=== PATIENT | male | born 1950 | race Caucasian/White ===

== ENCOUNTER 2019-08-28 12:18 | Emergency (ER) | payer MEDICARE, MEDICAID, SELFPAY ==
[2019-08-28 12:24] VITALS: BP 143/89; PULSE 66; RESP 18; TEMP 36.8; O2SAT 98
[2019-08-28 13:06] LABS: Basophils Percent Auto 0.2 % (0.2-1.2); Eosinophils Absolute Auto 0.2 K/mm3 (0-0.3); Eosinophils Percent Auto 1.9 % (0-4.4); Hematocrit 41.8 % (42.0-52.0); Hemoglobin 12.9 g/dL (14.0-18.0); Immature Granulocyte Absolute 0.03 K/mm3 (0.00-0.031); Immature Granulocyte Percent A 0.3 % (0-0.5); Lymphocytes Absolute Auto 0.89 K/mm3 (0.9-3.2); Lymphocytes Percent Auto 10.3 % (18.3-44.2); Mean Corpuscular HGB Conc 30.9 g/dl (32-36); Mean Corpuscular Hemoglobin 28.7 pg (26-34); Mean Corpuscular Volume 92.9 fl (80-100); Mean Platelet Volume 10.8 fl (7.4-10.4); Monocytes Absolute Auto 1.1 K/mm3 (0.1-0.6); Monocytes Percent Auto 12.2 % (2.6-8.5); Neutrophils Absolute Auto 6.5 K/mm3 (1.3-6.7); Neutrophils Percent Auto 75.1 % (45.5-73.1); Platelet Count Result 203 k/mm3 (150-375); White Blood Count 8.6 K/mm3 (4.5-10.0)
[2019-08-28 13:18] LABS: Lactic Acid Reflex 0.9 mmol/L (0.7-2.1)
[2019-08-28 13:19] LABS: Alanine Aminotransferase 51 U/L (4-50); Alkaline Phosphatase 101 U/L (38-126); Aspartate Amino Transferase 41 U/L (17-59); Bilirubin,Total 0.6 mg/dL (0.2-1.3); Blood Urea Nitrogen 19 mg/dL (9-20); Calcium 8.7 mg/dL (8.4-10.2); Carbon Dioxide 31 mmol/L (22-30); Chloride 100 mmol/L (98-107); Estimated CRCL calculation 80 ml/min; Estimated Glomerular Filt Rate > 60; Glucose 113 mg/dL (75-110); Potassium 3.5 mmol/L (3.4-5.0); Sodium 143 mmol/L (137-145)
--- NOTE | 2019-08-28 13:23 | ED.AMS ---
HPI - Altered Mental Status General Chief Complaint: Altered Mental Status Stated Complaint: LETHARGY Time Seen by Provider: 08/28/19 13:19 Source: patient and RN notes reviewed Mode of arrival: ambulatory Limitations: no limitations History of Present Illness HPI narrative: Pt is a 69 y/o male who presents to the ED with c/o AMS which occurred this morning. Pt states he awoke with AMS and was unable to remember the names of the halfway staff, which is abnormal for him. Pt reports increased confusion and delayed responses to questions asked to him. However, the pt does report his symptoms have been improving upon arrival to the ED. Pt reports a coccyx open wound which has been causing him back pain. He denies nausea, vomiting, diarrhea, a fever, or dizziness. He also denies having a poor appetite. Pt reports a PMHx of a CVA which occurred 2 weeks ago. complaint: altered mental status Onset (ago): hour(s) (this morning) Timing confirmed by: other (halfway staff) Associated symptoms: other (back pain) Related Data Allergies Allergy/AdvReac Type Severity Reaction Status Date / Time piperacillin Allergy Unknown Verified 04/02/19 11:00 sulfamethoxazole Allergy Unknown Verified 04/02/19 11:00 tazobactam Allergy Unknown Verified 04/02/19 11:00 tizanidine Allergy Unknown Verified 04/02/19 11:00 trimethoprim Allergy Unknown Verified 04/02/19 11:00 venlafaxine Allergy Unknown Unknown Verified 04/02/19 11:00 Review of Systems Review of Systems: All systems reviewed & are unremarkable except as noted in HPI and below Constitutional: Constitutional: Denies fever(s) and Denies poor appetite Gastrointestinal: Gastrointestinal: Denies diarrhea, Denies nausea and Denies vomiting Musculoskeletal: Musculoskeletal: Reports back pain Neurologic: Reports confusion (increased), Denies dizziness and Reports other (AMS) [facility] Past Medical History Medical History (Updated 08/28/19 @ 14:05 by Ajay White MD) Colitis Depression DVT (deep venous thrombosis) GERD (gastroesophageal reflux disease) Hypertension Ulcer UTI (urinary tract infection) Surgical History Surgical History (Updated 08/28/19 @ 13:31 by Steffi Mercado) Hx of tonsillectomy Social History Social History (Updated 08/28/19 @ 13:31 by Steffi Mercado) Smoking status: Former smoker Tobacco type: cigarettes Gender identity (if verbalized by the patient): Male Course Vital Signs Vital signs: Vital Signs Temperature 36.8 C 08/28/19 12:24 Pulse Rate 66 08/28/19 12:24 Respiratory Rate 18 08/28/19 12:24 Blood Pressure 143/89 H 08/28/19 12:24 Pulse Oximetry 98 08/28/19 12:24 Temperature 36.8 C 08/28/19 12:24 Pulse Rate 66 08/28/19 12:24 Respiratory Rate 18 08/28/19 12:24 Blood Pressure 143/89 H 08/28/19 12:24 Pulse Oximetry 98 08/28/19 12:24 MDM - Altered Mental Status MDM Narrative Medical decision making narrative: Mental status normal on my evaluation. He does have a significant presure sore to his back/buttocks. It does not look infected. He is scheduled to see wound care tomorrow. Medical Records Attestation: I reviewed the patient's medical records. Lab Data Attestation: I reviewed the patient's lab results. Result diagrams: 08/28/19 12:52 08/28/19 12:52 Labs: Lab Results 08/28/19 08/28/19 08/28/19 Range/Units 12:52 12:52 12:52 WBC 8.6 (4.5-10.0) K/mm3 RBC 4.50 L (4.6-6.20) M/mm3 Hgb 12.9 L (14.0-18.0) g/dL Hct 41.8 L (42.0-52.0) % MCV 92.9 (80-100) fl MCH 28.7 (26-34) pg MCHC 30.9 L (32-36) g/dl RDW 14.0 (11.5-14.5) % Plt Count 203 (150-375) k/mm3 MPV 10.8 H (7.4-10.4) fl Immature Gran % (Auto) 0.3 (0-0.5) % Neut % (Auto) 75.1 H (45.5-73.1) % Lymph % (Auto) 10.3 L (18.3-44.2) % [place] % (Auto) 12.2 H (2.6-8.5) % Eos % (Auto) 1.9 (0-4.4) % Baso % (Auto) 0.2 (0.2-1.2) % Lymp
--- NOTE | 2019-08-28 13:42 | PC.NURSE ---
Per Dr. Schmidt no EKG. Pt has an implanted device that makes EKS results invalid.
[2019-08-28 14:00] VITALS: BP 135/65; PULSE 66; RESP 18; O2SAT 98
[2019-08-28 14:04] LABS: Add Urine Microscopic? YES; Appearance Urine Clear (Clear); Bacteria Urine Trace /hpf; Bilirubin Urine Negative (Negative); Color Urine Yellow (Yellow); Glucose Urine UA Negative (Negative); Ketones Urine Negative (Negative); Leukocyte Esterase Ur Negative LEU/UL (Negative); Mucus Urine Few /lpf; Nitrate Urine Negative (Negative); Protein Urine Negative (Negative); Squamous Epithelial Cell Urine Rare /hpf (Few); Urobilinogen Urine Negative mg/dL (<2.0)
[2019-08-28 14:06] LABS: Blood Urine Negative (Negative)
--- NOTE | 2019-08-28 15:24 | PC.NURSE ---
Called [facility] to transfer pt to the [facility]. ETA 1700. Trip# [id number]
[2019-08-28 16:50] VITALS: BP 137/71; PULSE 64; RESP 19; O2SAT 100
== END 2019-08-28 17:41 ==
PROVIDERS: Emergency Provider Emergency Medicine
DX: R41.0 Disorientation, unspecified (principal); L89.93 Pressure ulcer of unspecified site, stage 3; I10 Essential (primary) hypertension; Z86.718 Personal history of other venous thrombosis and embolism; Z86.73 Personal history of transient ischemic attack (TIA), and cerebral infarction without residual deficits; Z87.891 Personal history of nicotine dependence
CPT/HCPCS: 36415; 80053; 81001; 83605; 85025; 87040; 87086; 99284; A9270

== ENCOUNTER 2019-11-01 18:27 | Emergency (ER) | payer MEDICARE, MEDICAID, SELFPAY ==
--- NOTE | ~2019-11-01 | XR_ITS ---
EXAMINATION: XR chest 1V portable EXAM DATE: 11/01/2019 19:38 INDICATION: Sepsis. TECHNIQUE: Portable AP frontal chest x-ray was obtained. Comparison is made to prior examination from 04/02/2019. FINDINGS: Some chronic linear by basilar regions of scarring or atelectasis. The lungs are otherwise clear. There are no pleural effusions. The cardiomediastinal silhouette is within normal limits. T here is no pneumothorax suspected. There are bony degenerative changes. There is no significant in terval change. IMPRESSION: No acute cardiopulmonary findings. Reviewed, dictated and finalized at location A.
[2019-11-01 18:27] VITALS: BP 129/64; PULSE 82; RESP 14; TEMP 36.4; O2SAT 100
--- NOTE | 2019-11-01 19:03 | ED.MALEGU ---
HPI - Male Genitourinary General Chief complaint: Urogenital-Male Stated complaint: ?UTI Time Seen by Provider: 11/01/19 18:59 Source: patient History of Present Illness HPI Narrative: Pt c/o dysuria, feels like I'm getting a another UTI . Pt just finished a course of antibiotics 2 days ago due to UTI. Pt has a chronic indwelling urinary cath. Denies cp, sob, abd pain, n/v/d or fever. Denies chills. Pt diagnosed with covid 2 weeks ago. Related Data Allergies Allergy/AdvReac Type Severity Reaction Status Date / Time piperacillin Allergy Unknown Verified 04/02/19 11:00 sulfamethoxazole Allergy Unknown Verified 04/02/19 11:00 tazobactam Allergy Unknown Verified 04/02/19 11:00 tizanidine Allergy Unknown Verified 04/02/19 11:00 trimethoprim Allergy Unknown Verified 04/02/19 11:00 venlafaxine Allergy Unknown Unknown Verified 04/02/19 11:00 Review of Systems Review of Systems: All systems reviewed & are unremarkable except as noted in HPI and below Constitutional: Constitutional: Denies body ache(s), Denies chills, Denies excessive sweating, Denies fatigue, Denies fever(s), Denies headache(s), Denies lethargy, Denies malaise, Denies weakness and Denies weight loss Eyes: Eyes: Denies blurry vision, Denies change in vision and Denies loss of vision ENT: Denies dizziness, Denies ear discharge, Denies headache(s), Denies lip swelling, Denies epistaxis, Denies nasal congestion, Denies neck pain, Denies throat swelling and Denies tongue swelling Cardiovascular: Cardiovascular: Denies chest pain, Denies chest pain at rest, Denies chest pain with activity, Denies diaphoresis, Denies rapid heart rate, Denies edema, Denies irregular heart rhythm, Denies lightheadedness, Denies palpitations, Denies dyspnea and Denies dyspnea on exertion Respiratory: Respiratory: Denies chest congestion, Denies cough, Denies hemoptysis, Denies dyspnea and Denies dyspnea on exertion Gastrointestinal: Gastrointestinal: Denies abdominal pain, Denies melena, Denies hematochezia, Denies diarrhea, Denies nausea, Denies vomiting and Denies hematemesis Musculoskeletal: Musculoskeletal: Denies abnormal gait, Denies deformity, Denies joint swelling, Denies limited range of motion, Denies neck pain and Denies numbness Neurologic: Denies Abnormal speech present, Denies abnormal gait, Denies confusion, Denies dizziness, Denies headache(s), Denies focal weakness, Denies loss of vision, Denies numbness, Denies Other visual disturbances, Denies Sensory deficit (Neuro) and Denies weakness Psychiatric: Psychiatric: Denies confusion, Denies depression, Denies auditory hallucinations, Denies homicidal ideation and Denies suicidal ideation Endocrine: Endocrine: Denies cold intolerance, Denies excessive sweating, Denies fatigue, Denies heat intolerance and Denies palpitations Hematologic/Lymphatic: Hematologic/Lymphatic: Denies easy bleeding and Denies easy bruising Allergic/Immunologic: Allergic/Immunologic: Denies lip swelling, Denies throat swelling and Denies tongue swelling PMFSH Past Medical History Medical History (Updated 11/01/19 @ 20:17 by Madi Lynn MD) Colitis Depression DVT (deep venous thrombosis) GERD (gastroesophageal reflux disease) Hypertension Ulcer UTI (urinary tract infection) Surgical History Surgical History (Updated 08/28/19 @ 13:31 by Steffi Mercado) Hx of tonsillectomy Social History Social History (Updated 08/28/19 @ 13:31 by Steffi Mercado) Smoking status: Former smoker Tobacco type: cigarettes Gender identity (if verbalized by the patient): Male Exam Const: General: cooperative, comfortable, no acute distress, well developed, alert and awake; No confusion Orientation/consciousness: oriented to person, oriented to place, oriented to time, patient oriented x3 and No confusion Limitations: no limitations HENMT: Head: normal to inspection, normocephalic and atraumatic Ears: hearing grossly normal bilaterally, TM norm
[2019-11-01 19:08] LABS: Basophils Percent Auto 0.2 % (0.2-1.2); Eosinophils Absolute Auto 0.3 K/mm3 (0-0.3); Eosinophils Percent Auto 4.6 % (0-4.4); Hematocrit 38.4 % (42.0-52.0); Hemoglobin 11.9 g/dL (14.0-18.0); Immature Granulocyte Absolute 0.03 K/mm3 (0.00-0.031); Immature Granulocyte Percent A 0.6 % (0-0.5); Lymphocytes Percent Auto 16.6 % (18.3-44.2); Mean Corpuscular Hemoglobin 29.5 pg (26-34); Mean Platelet Volume 10.6 fl (7.4-10.4); Monocytes Absolute Auto 0.7 K/mm3 (0.1-0.6); Monocytes Percent Auto 13.4 % (2.6-8.5); Neutrophils Absolute Auto 3.5 K/mm3 (1.3-6.7); Neutrophils Percent Auto 64.6 % (45.5-73.1); Platelet Count Result 196 k/mm3 (150-375); Red Blood Count 4.04 M/mm3 (4.6-6.20); Red Cell Distribution Width 14.8 % (11.5-14.5); White Blood Count 5.4 K/mm3 (4.5-10.0)
[2019-11-01 19:12] LABS: Add Urine Microscopic? YES; Appearance Urine Clear (Clear); Bacteria Urine Trace /hpf; Bilirubin Urine Negative (Negative); Blood Urine Negative (Negative); Color Urine Straw (Yellow); Glucose Urine UA Negative (Negative); Ketones Urine Negative (Negative); Leukocyte Esterase Ur Negative LEU/UL (Negative); Mucus Urine Rare /lpf; Nitrate Urine Negative (Negative); Protein Urine Negative (Negative); RBC Urine 0-2 /hpf (0-2); Specific Grav Ur 1.009 (1.001-1.035); Urobilinogen Urine Negative mg/dL (<2.0); WBC Urine 0-3 /hpf
[2019-11-01 19:18] LABS: INR 1.1; Prothrombin Time 13.7 Seconds (11.1-14.7)
[2019-11-01 19:19] LABS: Partial Thromboplastin Time 31.9 SECONDS (22.3-36.8)
[2019-11-01 19:20] LABS: Lactic Acid Reflex 1.2 mmol/L (0.7-2.1)
[2019-11-01 19:23] VITALS: BP 127/76; PULSE 66; RESP 16; O2SAT 100
[2019-11-01 19:24] LABS: Alanine Aminotransferase 25 U/L (4-50); Albumin Level 4.2 g/dL (3.5-5.1); Alkaline Phosphatase 107 U/L (38-126); Aspartate Amino Transferase 31 U/L (17-59); Bilirubin,Total 0.3 mg/dL (0.2-1.3); Blood Urea Nitrogen 26 mg/dL (9-20); CRP 0.6 mg/dL (<1.0); Calcium 8.1 mg/dL (8.4-10.2); Carbon Dioxide 30 mmol/L (22-30); Chloride 106 mmol/L (98-107); Estimated Glomerular Filt Rate > 60; Glucose 110 mg/dL (75-110); Potassium 3.9 mmol/L (3.4-5.0); Sodium 141 mmol/L (137-145)
--- NOTE | 2019-11-01 20:33 | PC.NURSE ---
Called [facility] to transport patient to [facility]. ETA 2100
[2019-11-01 21:36] VITALS: BP 106/89; PULSE 68; RESP 16; TEMP 36.6; O2SAT 99
== END 2019-11-01 21:36 ==
PROVIDERS: Emergency Provider Emergency Medicine
DX: R30.0 Dysuria (principal); Z86.19 Personal history of other infectious and parasitic diseases; Z86.718 Personal history of other venous thrombosis and embolism; K21.9 Gastro-esophageal reflux disease without esophagitis; I10 Essential (primary) hypertension; Z87.891 Personal history of nicotine dependence
CPT/HCPCS: 36415; 71045; 80053; 81001; 83605; 85025; 85610; 85730; 86140; 87040; 99283

== ENCOUNTER 2019-12-11 19:43 | Inpatient (IN) | payer MEDICARE, MEDICAID, SELFPAY ==
--- NOTE | ~2019-12-11 | CT_ITS ---
EXAMINATION: CT abdomen pelvis wo con DATE: 12/13/2019 11:00 INDICATION: Left flank pain. TECHNIQUE: Computed tomography (CT) of the abdomen and pelvis was performed without intravenous contr ast. Automated exposure control and iterative reconstruction technique were employed. The dose-length product was 316.40 mGy-cm. COMPARISON: CT abdomen and pelvis 09/21/2018 FINDINGS: The visualized portions of the lung bases demonstrate mild atelectasis. There are calcified pleural plaques bilaterally, which may be seen with asbestosis exposure. There is a trace right pleu ral effusion. The heart size is normal. No pericardial effusion. There is bilateral gynecomastia. Mil d pectus excavatum is noted. There is a 15 mm cyst in the liver. There are gallstones in the gallblad ailyn, which is normal in size. The spleen, pancreas, and adrenal glands are normal. There is a filter in the infrarenal inferior vena cava. The kidneys are normal. There is no urolithiasis. A suprapubic bladder catheter is noted. There is chronic diffuse bladder wall thickening, likely benign. The prost ate is moderately enlarged. There is stool distending the rectosigmoid. The more proximal gas-filled sigmoid colon is chronically distended with slight interval worsening. The appendix is normal. There are no pathologically enlarged lymph nodes. There is no free intraperitoneal fluid. There is an elect rode in the subcutaneous fat posterior to the sacrum without change in position. There is an implante d device in the subcutaneous fat in the left abdomen. There is mild thoracolumbar spondylosis. IMPRESSION: 1. No urolithiasis. 2. Stool impaction of the rectosigmoid with worsening of chronic distention of the sigmoid colon, lik kashif a combination of obstruction and adynamic ileus. Reviewed, dictated and finalized at location E. IMPRESSION: 1. No urolithiasis. 2. Stool impaction of the rectosigmoid with worsening of chronic distention of the sigmoid colon, likely a combination of obstruction and adynamic ileus.
--- NOTE | ~2019-12-11 | XR_ITS ---
EXAMINATION: XR chest 1V portable EXAM DATE: 12/11/2019 20:16 INDICATION: Weakness. Left occipital lobe infarction. TECHNIQUE: Portable AP frontal chest x-ray was obtained. There is no prior study for comparison. FINDINGS: The lungs are clear. There are no pleural effusions. Cardiac silhouette is prominent but magnified on this AP technique. There is no pneumothorax suspected. The bones and soft tissues are unremarkable. IMPRESSION: No acute cardiopulmonary findings. Reviewed, dictated and finalized at location A.
--- NOTE | ~2019-12-11 | US_ITS ---
EXAMINATION: US carotid duplex BI DATE: 12/12/2019 15:18 INDICATION: CVA TECHNIQUE: Grayscale, color Doppler, and pulsed Doppler images of the cervical carotid arteries were obtained. The degree of vessel stenosis is placed in one of the following categories: normal, <50%, 5 0-69%, >=70% but less than near-occlusion, near-occlusion, or total occlusion. Note that percent sten osis relative to normal distal artery lumen diameter is indirectly measured from velocity measurement s as described by Ajay, et al. Radiology 2003; 229:340-346. Notes: Normal: Peak systolic velocity <125 centimeters/sec and no plaque <50%. Peak systolic velocity <125 ( EDV <40; ICA/CCA PSV ratio <2.0; used these factors only a tandem lesions or low cardiac output or co ntralateral disease) 50-69 %: PSV 125-230 (EDV 40-100; ratio 2-4) >= 70% but less than near occlusion: PSV greater than 230 (EDV > 100; ratio> 4.0) Near Occlusion: PSV that is variable; markedly narrowed lumen Occlusion: Absent flow on color/spectral Doppler and no lumen on sapp scale. COMPARISON: None. FINDINGS: RIGHT: The right common carotid artery (CCA) peak systolic velocity (PSV) is 91 cm/s. The right internal car otid artery (ICA) PSV is 83 cm/s. The right ICA end-diastolic velocity (EDV) is 12 cm/s. The right IC A/CCA PSV ratio is 0.9. The external carotid artery (ECA) PSV is 127 cm/s. There is antegrade flow in the right vertebral artery. LEFT: The left CCA PSV is 90 cm/s. The left ICA PSV is 107 cm/s. The left ICA EDV is 16 cm/s. The left ICA/ CCA PSV ratio is 1.2. The ECA PSV is 225 cm/s. There is antegrade flow in the left vertebral artery. IMPRESSION: 1. Less than 50% stenosis in the right internal carotid artery by sonographic criteria. 2. Less than 50% stenosis in the left internal carotid artery by sonographic criteria. Reviewed, dictated and finalized at location A. IMPRESSION: 1. Less than 50% stenosis in the right internal carotid artery by sonographic jaquan conn. 2. Less than 50% stenosis in the left internal carotid artery by sonographic jack niño.
--- NOTE | ~2019-12-11 | XR_ITS ---
EXAMINATION: XR abdomen/kub 1V DATE: 12/15/2019 08:21 INDICATION: Constipation. Fecal impaction. TECHNIQUE: A supine view of the abdomen was obtained. COMPARISON: CT abdomen and pelvis 12/13/2019 FINDINGS: There is gaseous distention of the sigmoid colon. There is a small volume of stool in the c olon. The small bowel is normal in caliber. There is a filter in the inferior vena cava. A pump overl ies left abdomen. A generator overlies right abdomen with electrode in the subcutaneous fat on the pr ior CT. IMPRESSION: 1. Gaseous distention of the sigmoid colon, consistent with adynamic ileus. 2. Right-sided electrode in abnormal position without change. Reviewed, dictated and finalized at location E.
--- NOTE | ~2019-12-11 | CT_ITS ---
EXAMINATION: CT brain wo con EXAM DATE: 12/11/2019 20:12 INDICATION: Dizziness. TECHNIQUE: Spiral CT of the head was performed without contrast. Axial, coronal and sagittal images were reviewed. The dose-length product (DLP) for this examination was 605.33 mGy-cm. The exposure w as tailored according to patient size, and iterative reconstruction (ASIR) was used as additional dos e reduction technique. There is no prior study for comparison. FINDINGS: There is small geographically shaped left occipital lobe cortical and subcortical hypodensi ty measuring about 1 x 2 cm, most likely an acute to subacute infarction. No acute intracranial hemor rhage, extra-axial collections or obstructive hydrocephalus. No brain mass. Mild carotid siphon arter ial sclerosis. Posterior fossa unremarkable. Sinuses are well aerated as are the mastoid air cells. O rbits are unremarkable. IMPRESSION: Small left occipital lobe infarction, probably acute to subacute. Reviewed, dictated and finalized at location A.
[2019-12-11 19:49] VITALS: BP 146/67; PULSE 66; RESP 9; TEMP 36.4; O2SAT 98
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
[2019-12-11] MEDS: SODIUM CHLORIDE 0.9% IV 1,000 ML 999 ML IV CONT (20:28)
--- NOTE | 2019-12-11 20:32 | PC.NURSE ---
no med sheet was sent with patient. called [facility] and they are unable to fax med sheet over, because their wifi is down. they gave me the allergies on the phone.
[2019-12-11 20:39] LABS: Basophils Percent Auto 0.4 % (0.2-1.2); Eosinophils Absolute Auto 0.4 K/mm3 (0-0.3); Eosinophils Percent Auto 5.7 % (0-4.4); Hematocrit 40.3 % (42.0-52.0); Hemoglobin 12.7 g/dL (14.0-18.0); Immature Granulocyte Absolute 0.03 K/mm3 (0.00-0.031); Immature Granulocyte Percent A 0.4 % (0-0.5); Lymphocytes Absolute Auto 1.07 K/mm3 (0.9-3.2); Mean Corpuscular HGB Conc 31.5 g/dl (32-36); Mean Corpuscular Hemoglobin 30.2 pg (26-34); Mean Corpuscular Volume 95.7 fl (80-100); Mean Platelet Volume 11.8 fl (7.4-10.4); Monocytes Absolute Auto 0.7 K/mm3 (0.1-0.6); Monocytes Percent Auto 9.9 % (2.6-8.5); Neutrophils Absolute Auto 4.9 K/mm3 (1.3-6.7); Neutrophils Percent Auto 68.6 % (45.5-73.1); Platelet Count Result 164 k/mm3 (150-375); Red Blood Count 4.21 M/mm3 (4.6-6.20); White Blood Count 7.2 K/mm3 (4.5-10.0)
[2019-12-11 20:49] LABS: Add Urine Microscopic? YES; Appearance Urine Cloudy (Clear); Bacteria Urine Trace /hpf; Bilirubin Urine Negative (Negative); Blood Urine Negative (Negative); Color Urine Yellow (Yellow); Glucose Urine UA Negative (Negative); Ketones Urine Negative (Negative); Leukocyte Esterase Ur Negative LEU/UL (Negative); Mucus Urine Few /lpf; Nitrate Urine Negative (Negative); Protein Urine 1+ mg/dL (Negative); RBC Urine 0-2 /hpf (0-2); Specific Grav Ur 1.023 (1.001-1.035); Squamous Epithelial Cell Urine Rare /hpf (Few); Uric Acid Crystals Urine Present /hpf; Urobilinogen Urine Negative mg/dL (<2.0)
[2019-12-11 20:50] LABS: Alanine Aminotransferase 23 U/L (4-50); Albumin Level 4.4 g/dL (3.5-5.1); Alkaline Phosphatase 112 U/L (38-126); Aspartate Amino Transferase 26 U/L (17-59); Bilirubin,Total 0.4 mg/dL (0.2-1.3); Blood Urea Nitrogen 29 mg/dL (9-20); Calcium 8.5 mg/dL (8.4-10.2); Carbon Dioxide 26 mmol/L (22-30); Chloride 110 mmol/L (98-107); Estimated Glomerular Filt Rate > 60; Glucose 100 mg/dL (75-110); Lipase 59 U/L (23-300); Potassium 4.4 mmol/L (3.4-5.0); Sodium 142 mmol/L (137-145)
[2019-12-11 21:18] VITALS: BP 157/101; PULSE 68; RESP 10; O2SAT 100
[2019-12-11 21:21] LABS: INR 1.1
[2019-12-11 22:30] VITALS: BP 144/80; PULSE 66; RESP 14; O2SAT 97
[2019-12-11 23:25] VITALS: BP 138/64; PULSE 73; RESP 16; TEMP 36; O2SAT 100; BMI 22.4
--- NOTE | 2019-12-11 23:27 | PC.NURSE ---
This patient, Fidel Amado, was admitted to Medical Room 244-. Patient/family oriented to hospital policies and general routines including ID bracelet, bed and alarms, visiting hours, pain management, procedures, bathroom and other care routines, personal items, smoking policy, room service/diet, and visiting hours. Valuables list has been completed. Information on how to activate the Rapid Response Team has been discussed. Patient/Family are encouraged to report perceived risks to care and to ask questions if they do not understand what they are told or what they should do. Wound photos taken and dressing reapplied to coccyx.
[2019-12-11 23:29] VITALS: PULSE 68
[2019-12-12] VITALS (11 sets, daily range): BP systolic 132–162; BP diastolic 60–76; PULSE 62–88; RESP 16–18; TEMP 36.2–37; O2SAT 97–99
--- NOTE | 2019-12-12 | ECHO_ITS ---
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 Complete two-dimensional, color flow and Doppler transthoracic echocardiogram is performed with agitated saline. Summary 1. Normal LV size. Moderate LVH, normal LV systolic function, ejection fraction about 70%. Normal diastolic function. Mild aortic valve sclerosis, no stenosis, mild aortic regurgitation. Normal structure of the mitral valve, no significant MR. Trivial TR, unable to assess RVSP due to inadequate TR jet velocity. Sinus of Valsalva dilated, diameter 4.6 cm. No evidence of at large interatrial shunt on injection of agitated normal saline, image quality is suboptimal. Left Ventricle Left ventricular chamber dimension is normal. Left ventricular systolic function is normal, estimated at 65-70%. There is moderately increased left ventricular wall thickness. Left ventricular septal wall motion is normal. The left ventricular diastolic function is normal. Right Ventricle Right ventricular chamber dimension is normal. Right ventricular systolic function is normal. Left Atria Left atrial chamber dimension is normal. Right Atria Right atrial chamber dimension is normal. Aortic Valve There is mild aortic valve sclerosis. There is no aortic valve stenosis. There is mild aortic valve regurgitation. Pulmonic Valve The pulmonic valve is normal. There is trace pulmonic regurgitation. Mitral Valve The mitral valve has normal leaflets. There is no mitral valve regurgitation. Tricuspid Valve The tricuspid valve leaflets are normal. There is trace tricuspid valve regurgitation. Pericardium/Pleural The pericardium appears normal. There is no pericardial effusion. Aorta The aortic root size at the sinus of Valsalva is dilated. The prox ascending aorta size is normal. Left Ventricular Outflow Tract Name Value Normal LVOT 2D LVOT Diameter 2.1 cm LVOT Doppler LVOT Peak Gradient 10 mmHg LVOT Mean Gradient 5 mmHg LVOT VTI 35 cm LVOT VTI/AV VTI Ratio 0.9 LVOT Stroke Volume 126 ml LVOT CO 8.4 l/min LVOT CI 4.1 l/min/m2 Mitral Valve
[2019-12-12] MEDS: SODIUM CHLORIDE 0.45% 1,000 ML 100 ML IV CONT (02:42)
[2019-12-12 05:59] LABS: Basophils Percent Auto 0.5 % (0.2-1.2); Eosinophils Absolute Auto 0.3 K/mm3 (0-0.3); Eosinophils Percent Auto 5.6 % (0-4.4); Hematocrit 35.9 % (42.0-52.0); Hemoglobin 11.4 g/dL (14.0-18.0); Immature Granulocyte Absolute 0.02 K/mm3 (0.00-0.031); Immature Granulocyte Percent A 0.3 % (0-0.5); Lymphocytes Absolute Auto 0.91 K/mm3 (0.9-3.2); Lymphocytes Percent Auto 15.4 % (18.3-44.2); Mean Corpuscular HGB Conc 31.8 g/dl (32-36); Mean Corpuscular Hemoglobin 30.2 pg (26-34); Mean Platelet Volume 12.1 fl (7.4-10.4); Monocytes Absolute Auto 0.6 K/mm3 (0.1-0.6); Monocytes Percent Auto 9.6 % (2.6-8.5); Neutrophils Absolute Auto 4.1 K/mm3 (1.3-6.7); Neutrophils Percent Auto 68.6 % (45.5-73.1); Platelet Count Result 137 k/mm3 (150-375); Red Blood Count 3.78 M/mm3 (4.6-6.20); Red Cell Distribution Width 14.9 % (11.5-14.5); White Blood Count 5.9 K/mm3 (4.5-10.0)
[2019-12-12 06:14] LABS: Blood Urea Nitrogen 26 mg/dL (9-20); Carbon Dioxide 27 mmol/L (22-30); Chloride 112 mmol/L (98-107); Estimated CRCL calculation 86 ml/min; Estimated Glomerular Filt Rate > 60; Glucose 91 mg/dL (75-110); Potassium 3.8 mmol/L (3.4-5.0); Sodium 141 mmol/L (137-145)
[2019-12-12 07:34] LABS: Uric Acid 5.3 mg/dL (3.5-8.5)
[2019-12-12 07:51] LABS: Cholesterol 95 mg/dL (0-200); HDL Direct 41 mg/dL; Triglycerides 35 mg/dL (<150)
[2019-12-12 08:03] LABS: LDL Cholesterol Direct 42 mg/dL
[2019-12-12] MEDS: NITROFURANTOIN MONOHYD MACROCR 100 MG CAP PO ×2 (09:04→20:47)
[2019-12-12] MEDS: ASCORBIC ACID 500 MG TABLET PO (09:04)
[2019-12-12] MEDS: MIRABEGRON 25 MG ER TABLET PO (09:04)
[2019-12-12] MEDS: DOCUSATE SODIUM 100 MG CAPSULE PO (09:04)
[2019-12-12] MEDS: BACLOFEN 5 MG TABLET PO ×2 (09:04→18:07)
[2019-12-12] MEDS: FOLIC ACID 1 MG TABLET PO (09:04)
[2019-12-12] MEDS: FLUTICASONE PROPIONATE 0.05% NA SPR 16 GM BTL (*BKC) 2 SPRAY NASAL (09:05)
[2019-12-12] MEDS: FERROUS SULFATE 324 MG TABLET PO (09:05)
[2019-12-12] MEDS: PANTOPRAZOLE SOD SESQUIHYDRATE 20 MG TAB PO (09:05)
[2019-12-12] MEDS: AMLODIPINE BESYLATE 5 MG TABLET 10 MG PO (09:05)
[2019-12-12] MEDS: ACIDOPHILUS/BULGARICUS CHEWABLE TABLET 1 TABLET PO (09:05)
[2019-12-12] MEDS: PSYLLIUM POWDER PACKET 1 PACKET PO ×2 (09:07→18:08)
[2019-12-12] MEDS: PREGABALIN 75 MG CAPSULE PO ×2 (09:09→18:07)
[2019-12-12] MEDS: PREGABALIN 50 MG CAPSULE PO ×2 (09:09→18:07)
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
[2019-12-12] MEDS: CIPROFLOXACIN HC OTIC 10 ML 3 DROP RIGHT EAR ×2 (11:21→18:07)
[2019-12-12] MEDS: SENNA/DOCUSATE SODIUM TABLET 2 TAB PO ×2 (11:21→18:07)
[2019-12-12] MEDS: ASPIRIN 81 MG ENTERIC TABLET PO (11:21)
[2019-12-12] MEDS: MENTHOL 10% / METHYL SALICYLATE 15% 57 GM TUBE 1 APPLIC TOPICAL (11:23)
[2019-12-12] MEDS: PREGABALIN 75 MG CAPSULE 150 MG PO (12:37)
[2019-12-12 13:03] LABS: CRP < 0.5 mg/dL (<1.0)
[2019-12-12 13:28] LABS: Lactate Dehydrogenase < 200 U/L (313-618)
[2019-12-12] MEDS: SODIUM CHLORIDE 0.45% 1,000 ML 80 ML IV CONT (14:19)
[2019-12-12] MEDS: polyethylene glycoL 3350 17 GM POWD.PACK PO (18:08)
[2019-12-12] MEDS: lisinopriL 20 MG TABLET 40 MG PO (20:47)
[2019-12-12] MEDS: ATORVASTATIN 40 MG TABLET 80 MG PO (20:47)
[2019-12-13] VITALS (13 sets, daily range): BP systolic 115–162; BP diastolic 65–77; PULSE 71–93; RESP 12–18; TEMP 36.7–37.2; O2SAT 96–100
[2019-12-13] MEDS: ACETAMINOPHEN 500 MG TABLET 1000 MG PO (02:31)
[2019-12-13] MEDS: SODIUM CHLORIDE 0.45% 1,000 ML 80 ML IV CONT (02:54)
[2019-12-13 05:58] LABS: Blood Urea Nitrogen 18 mg/dL (9-20); Carbon Dioxide 27 mmol/L (22-30); Chloride 108 mmol/L (98-107); Estimated CRCL calculation 77 ml/min; Estimated Glomerular Filt Rate > 60; Glucose 88 mg/dL (75-110); Magnesium 2.1 mg/dL (1.6-2.3); Potassium 3.7 mmol/L (3.4-5.0); Sodium 137 mmol/L (137-145)
[2019-12-13 06:04] LABS: Basophils Percent Auto 0.5 % (0.2-1.2); Eosinophils Absolute Auto 0.3 K/mm3 (0-0.3); Hematocrit 33.7 % (42.0-52.0); Hemoglobin 10.9 g/dL (14.0-18.0); Immature Granulocyte Absolute 0.01 K/mm3 (0.00-0.031); Immature Granulocyte Percent A 0.2 % (0-0.5); Lymphocytes Absolute Auto 1.04 K/mm3 (0.9-3.2); Lymphocytes Percent Auto 18.4 % (18.3-44.2); Mean Corpuscular HGB Conc 32.3 g/dl (32-36); Mean Corpuscular Hemoglobin 30.1 pg (26-34); Mean Corpuscular Volume 93.1 fl (80-100); Monocytes Absolute Auto 0.6 K/mm3 (0.1-0.6); Monocytes Percent Auto 10.1 % (2.6-8.5); Neutrophils Absolute Auto 3.7 K/mm3 (1.3-6.7); Neutrophils Percent Auto 65.8 % (45.5-73.1); Platelet Count Result 141 k/mm3 (150-375); Red Blood Count 3.62 M/mm3 (4.6-6.20); Red Cell Distribution Width 14.7 % (11.5-14.5); White Blood Count 5.6 K/mm3 (4.5-10.0)
[2019-12-13] MEDS: FERROUS SULFATE 324 MG TABLET PO (09:02)
[2019-12-13] MEDS: ASPIRIN 81 MG ENTERIC TABLET PO (09:03)
[2019-12-13] MEDS: ASCORBIC ACID 500 MG TABLET PO (09:03)
[2019-12-13] MEDS: CIPROFLOXACIN HC OTIC 10 ML 3 DROP RIGHT EAR ×2 (09:03→17:30)
[2019-12-13] MEDS: DOCUSATE SODIUM 100 MG CAPSULE PO (09:04)
[2019-12-13] MEDS: SENNA/DOCUSATE SODIUM TABLET 2 TAB PO ×2 (09:05→17:30)
[2019-12-13] MEDS: LIDOCAINE 5% PATCH 1 PATCH TRANSDERM (09:06)
[2019-12-13] MEDS: LINACLOTIDE 145 MCG 290 EACH PO (09:07)
[2019-12-13] MEDS: MIRABEGRON 25 MG ER TABLET PO (09:08)
[2019-12-13] MEDS: PREGABALIN 75 MG CAPSULE PO ×2 (09:11→17:29)
[2019-12-13] MEDS: PANTOPRAZOLE SOD SESQUIHYDRATE 20 MG TAB PO (09:11)
[2019-12-13] MEDS: PREGABALIN 50 MG CAPSULE PO ×2 (09:11→17:29)
[2019-12-13] MEDS: NITROFURANTOIN MONOHYD MACROCR 100 MG CAP PO ×2 (09:11→20:24)
[2019-12-13] MEDS: PSYLLIUM POWDER PACKET 1 PACKET PO ×2 (09:12→17:30)
--- NOTE | 2019-12-13 10:08 | PM.IMPN ---
Progress Note: A&P Assessment and Plan (1) CVA (cerebral vascular accident): Code(s): I63.9 - Cerebral infarction, unspecified Status: Acute Assessment and Plan: Acute versus subacute. Patient reported generalized weakness, drowsiness, and left-sided pain. CT brain on arrival showed small left occipital lobe infarction, probable acute to subacute. We are getting his records from [facility] for which he states he was diagnosed with a stroke about 3 months ago and had some changes to his peripheral vision on the left side. Fasting lipid profile was within normal range no adjustment to his statin medication is necessary at this time. Telemetry shows normal sinus rhythm with a heart rate of 70 bpm, no alarms were captured. No acute abnormality at this time. Echocardiogram showed Normal LV size. Moderate LVH, normal LV systolic function, ejection fraction about 70%. Normal diastolic function. No evidence of at large interatrial shunt on injection of agitated normal saline, image quality is suboptimal. Carotid Dopplers show Less than 50% stenosis bilaterally. MRI is unable be performed due to his pain stimulator and nerve stimulator Neurology evaluated the patient and I talked to them and they believe it could be old from the 1 diagnosed at [facility]. Will continue on baby aspirin in him follow-up as an outpatient. Will continue monitoring his symptoms. Neuro checks q.4. Neurology input is greatly appreciated. (2) Generalized weakness: Code(s): R53.1 - Weakness Status: Acute Assessment and Plan: Patient reports generalized weakness and drowsiness which he feels is associated to a urinary tract infection for which he has frequently. He does have a chronic suprapubic catheter in place and is on 2 antibiotics twice daily to try and prevent UTIs. His urinalysis on arrival showed cloudy urine with 4-6 wbc's, but otherwise was not specific for a UTI. He did have uric acid crystals present along with 5-9 hyaline casts, and few mucus. Will check a urine culture, get blood cultures, and start IV Levaquin for treatment of complicated UTI. Will continue monitoring his weakness with treatment and IV fluids. (3) Dizziness: Code(s): R42 - Dizziness and giddiness Status: Acute Assessment and Plan: Patient is still reporting some dizziness with sitting down. Patient states is normally a symptoms of his urinary tract infection. He is not having any more dizziness at this time. Will order p.r.n. meclizine Continue monitoring symptoms. (4) Uric acid crystalluria: Code(s): R82.998 - Other abnormal findings in urine Status: Acute Assessment and Plan: This was an abnormal finding in his urinalysis and we will check a CT abd/pelvis to rule out any acute kidney stones. Will order CT Abd/Pelvis to rule out kidney stone with associated left flank pain. Continue monitoring his symptoms. (5) Anemia: Code(s): D64.9 - Anemia, unspecified Status: Acute Assessment and Plan: History of anemia as per detention records. He had slight anemia on arrival with a hemoglobin of 12.7 and hematocrit at 40.3 %. Today H&H slightly decreased most likely due to IV fluid dilution, H&H was 10.9/33.7% Continue monitoring. No acute signs of bleeding at this time. IV blood transfusion as needed. (6) Frequent UTI: Code(s): N39.0 - Urinary tract infection, site not specified Status: Acute Assessment and Plan: Chronic Martínez catheter due to neurogenic bladder and history of frequent UTIs. He reports having similar symptoms with UTIs in the past. Checking a urine culture and starting IV Levaquin for now. Continue monitoring symptoms and ur
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
[2019-12-13] MEDS: PREGABALIN 75 MG CAPSULE 150 MG PO (12:53)
[2019-12-13] MEDS: AMLODIPINE BESYLATE 5 MG TABLET 10 MG PO (12:54)
[2019-12-13] MEDS: FOLIC ACID 1 MG TABLET PO (12:54)
[2019-12-13] MEDS: ACIDOPHILUS/BULGARICUS CHEWABLE TABLET 1 TABLET PO (12:54)
[2019-12-13 12:59] LABS: SARS-CoV-2 RNA PCR Negative
[2019-12-13] MEDS: SIMETHICONE 80 MG TAB.CHEW PO (17:29)
[2019-12-13] MEDS: lisinopriL 20 MG TABLET 40 MG PO (20:24)
[2019-12-13] MEDS: ATORVASTATIN 40 MG TABLET 80 MG PO (20:24)
[2019-12-14] VITALS (11 sets, daily range): BP systolic 139–153; BP diastolic 64–78; PULSE 75–97; RESP 12–18; TEMP 36.9–37.3; O2SAT 95–99
[2019-12-14 05:16] LABS: Hematocrit 33.8 % (42.0-52.0); Hemoglobin 11.1 g/dL (14.0-18.0); Mean Corpuscular HGB Conc 32.8 g/dl (32-36); Mean Corpuscular Volume 91.4 fl (80-100); Mean Platelet Volume 11.4 fl (7.4-10.4); Platelet Count Result 146 k/mm3 (150-375); Red Cell Distribution Width 14.6 % (11.5-14.5); White Blood Count 5.7 K/mm3 (4.5-10.0)
[2019-12-14 05:34] LABS: Blood Urea Nitrogen 18 mg/dL (9-20); Calcium 8.2 mg/dL (8.4-10.2); Carbon Dioxide 26 mmol/L (22-30); Chloride 107 mmol/L (98-107); Estimated CRCL calculation 70 ml/min; Estimated Glomerular Filt Rate > 60; Glucose 90 mg/dL (75-110); Potassium 3.4 mmol/L (3.4-5.0); Sodium 138 mmol/L (137-145)
[2019-12-14] MEDS: FERROUS SULFATE 324 MG TABLET PO (08:27)
[2019-12-14] MEDS: ASCORBIC ACID 500 MG TABLET PO (08:27)
[2019-12-14] MEDS: ASPIRIN 81 MG ENTERIC TABLET PO (08:28)
[2019-12-14] MEDS: DOCUSATE SODIUM 100 MG CAPSULE PO ×2 (08:28→16:46)
[2019-12-14] MEDS: LIDOCAINE 5% PATCH 1 PATCH TRANSDERM (08:30)
[2019-12-14] MEDS: NITROFURANTOIN MONOHYD MACROCR 100 MG CAP PO ×2 (08:32→21:11)
[2019-12-14] MEDS: MIRABEGRON 25 MG ER TABLET PO (08:32)
[2019-12-14] MEDS: PANTOPRAZOLE SOD SESQUIHYDRATE 20 MG TAB PO (08:33)
[2019-12-14] MEDS: PSYLLIUM POWDER PACKET 1 PACKET PO ×2 (08:34→16:46)
[2019-12-14] MEDS: PREGABALIN 50 MG CAPSULE PO ×2 (08:40→16:54)
[2019-12-14] MEDS: PREGABALIN 75 MG CAPSULE PO ×2 (08:40→16:54)
[2019-12-14] MEDS: SENNA/DOCUSATE SODIUM TABLET 1 TAB PO (09:33)
[2019-12-14] MEDS: MAG HYDROX/AL HYDROX/SIMETH 30 ML UDC PO (09:33)
[2019-12-14] MEDS: CIPROFLOXACIN HC OTIC 10 ML 3 DROP LEFT EAR ×2 (09:33→16:45)
[2019-12-14] MEDS: MAGNESIUM HYDROXIDE SUSP 30 ML UDC PO (09:33)
[2019-12-14] MEDS: polyethylene glycoL 3350 17 GM POWD.PACK PO ×4 (09:34→21:13)
[2019-12-14] MEDS: LINACLOTIDE 145 MCG 290 EACH PO (09:35)
--- NOTE | 2019-12-14 09:57 | PM.IMPN ---
Progress Note: A&P Assessment and Plan (1) Fecal impaction: Code(s): K56.41 - Fecal impaction Status: Acute Assessment and Plan: Patient was having some lower abdominal discomfort and a CT scan was ordered which showed he has a stool impaction on the rectosigmoid with worsening chronic distension of his sigmoid colon, likely a combination of obstruction versus adynamic ileus. The patient has good bowel sounds. He is a quadriplegic with a chronic pain pump which puts him at increased risk of having constipation issues. Will give the patient MiraLax, Colace, Linzess, Metamucil, probiotic, senna, milk of magnesia 30 mL and mineral oil enema to see if this helps with his impaction. May have to perform a manual disimpaction if this does not help. Continue monitoring patient's symptoms. (2) CVA (cerebral vascular accident): Code(s): I63.9 - Cerebral infarction, unspecified Status: Acute Assessment and Plan: Acute versus subacute. Patient reported generalized weakness, drowsiness, and left-sided pain. CT brain on arrival showed small left occipital lobe infarction, probable acute to subacute. We are getting his records from [facility] for which he states he was diagnosed with a stroke about 3 months ago and had some changes to his peripheral vision on the left side. Fasting lipid profile was within normal range no adjustment to his statin medication is necessary at this time. Telemetry shows normal sinus rhythm with a heart rate of 70 bpm, no alarms were captured. No acute abnormality at this time. Echocardiogram showed Normal LV size. Moderate LVH, normal LV systolic function, ejection fraction about 70%. Normal diastolic function. No evidence of at large interatrial shunt on injection of agitated normal saline, image quality is suboptimal. Carotid Dopplers show Less than 50% stenosis bilaterally. MRI is unable be performed due to his pain stimulator and nerve stimulator Neurology evaluated the patient and would like to start him on Plavix daily for 4 weeks and have him follow-up in the office. Will continue monitoring his symptoms. Neuro checks q.4. Neurology input is greatly appreciated. (3) Generalized weakness: Code(s): R53.1 - Weakness Status: Acute Assessment and Plan: Patient reports generalized weakness and drowsiness which he feels is associated to a urinary tract infection for which he has frequently. He does have a chronic suprapubic catheter in place and is on 2 antibiotics twice daily to try and prevent UTIs. His urinalysis on arrival showed cloudy urine with 4-6 wbc's, but otherwise was not specific for a UTI. He did have uric acid crystals present along with 5-9 hyaline casts, and few mucus. Urine culture was negative, blood culture showed no growth. Will continue on oral Levaquin for 5 more days for treatment of possible UTI since he states he has similar symptoms with 4 with UTIs. Will continue monitoring his weakness with treatment. (4) Dizziness: Code(s): R42 - Dizziness and giddiness Status: Acute Assessment and Plan: Patient is still reporting some dizziness with sitting down. Patient states is normally a symptoms of his urinary tract infection. He is not having any more dizziness at this time. Will order p.r.n. meclizine Continue monitoring symptoms. (5) Uric acid crystalluria: Code(s): R82.998 - Other abnormal findings in urine Status: Acute Assessment and Plan: This was an abnormal finding in his urinalysis and we will check a CT abd/pelvis to rule out any acute kidney stones. CT Abd/Pelvis did not show any signs of a kidney stone. Continue monitoring his symptoms. (6) Anemia:
--- NOTE | 2019-12-14 10:16 | PCPTNOTE ---
The PT treatment was not completed this AM due to patient refusal. Will continue per Plan of Care frequency and duration.
[2019-12-14] MEDS: MINERAL OIL 30 ML UDC 133 ML RECTAL (10:33)
--- NOTE | 2019-12-14 10:49 | WPDNEUROPN ---
Progress Note: A&P Assessment and Plan (1) Fecal impaction: Code(s): K56.41 - Fecal impaction Status: Acute (2) Dizziness: Code(s): R42 - Dizziness and giddiness Status: Acute (3) CVA (cerebral vascular accident): Code(s): I63.9 - Cerebral infarction, unspecified Status: Acute (4) Generalized weakness: Code(s): R53.1 - Weakness Status: Acute (5) Quadriplegia, C5-C7, incomplete: Code(s): G82.54 - Quadriplegia, C5-C7 incomplete Status: Acute (6) Frequent UTI: Code(s): N39.0 - Urinary tract infection, site not specified Status: Acute (7) Essential hypertension: Code(s): I10 - Essential (primary) hypertension Status: Acute (8) Anemia: Code(s): D64.9 - Anemia, unspecified Status: Acute (9) Uric acid crystalluria: Code(s): R82.998 - Other abnormal findings in urine Status: Acute Additional Plan stable Review of Systems Review of Systems: All systems reviewed & are unremarkable except as noted in HPI and below Exam Const: General: cooperative, comfortable and no acute distress Nutritional Appearance: average body habitus Orientation/consciousness: patient oriented x3 Limitations: physical limitations Eyes: General: appearance normal, both eyes and all related structures Visual Sorensen: abnormal by confrontation Alignment and Position: alignment normal and position normal Periorbital: periorbital findings normal Eyelids: eyelids normal Conjunctivae: conjunctivae normal Sclera: sclerae normal Cornea: corneas normal Pupils: Equal, round and reactive pupils present EOM: EOMs intact bilaterally Direct Ophthalmoscopy: normal light reflex Neck: Neck: full ROM and no lymphadenopathy Chest: Chest palpation & inspection: normal inspection of the chest Resp: Effort & Inspection: normal respiratory effort and able to speak in complete sentences Auscultation: clear to auscultation bilaterally Cardio: Rate: regular rate Rhythm: regular rhythm GI: Percussion: Yes normal to percussion Auscultation: normal bowel sounds Skin: General skin exam: normal color Neuro: General: patient oriented x3 and moves all extremities Cranial nerves: Yes Equal, round and reactive pupils present, Yes Normal accommodation reflex present, Yes Bilaterally intact EOM present, Yes Nystagmus not present, Yes Normal facial strength present, Yes facial symmetry, Yes Midline tongue present, Yes Symmetric palate elevation present, Yes Ability to bilaterally rotate head present and Yes Ability to bilaterally elevate shoulders present Cognition (Neuro): normal cognition Speech: normal speech Motor exam (neuro): Abnormal motor strength present Sensory Exam: Sensory deficit (Neuro) Extrem: General: normal to inspection Psych: Mental Status: mental status grossly normal Speech and movement: Normal speech and movement present Affect: normal affect Attitude: cooperative Thought process: Normal thought process present Thought content: Yes Normal thought content present Insight: Good insight present (Psych) Judgement: Good judgement present (Psych) Objective Data Vital Signs Vital Signs: Vital Signs - 24 hr 12/13/19 12:00 12/13/19 13:01 12/13/19 14:00 Temperature 36.9 C Pulse Rate 85 78 86 Respiratory Rate 16 Blood Pressure 115/71 124/70 Pulse Oximetry 98 12/13/19 16:00 12/13/19 18:00 12/13/19 20:00 Temperature 36.9 C Pulse Rate 81 80 87 Respiratory Rate 18 Blood Pressure 148/77 H Pulse Oximetry 100 12/13/19 22:00 12/14/19 00:00 12/14/19 02:00 Temperature 37.1 C 36.9 C Pulse Rate 93 79 78 Respiratory Rate 12 12 Blood Pressure 162/74 H 139/72 Pulse Oximetry 98 99 12/14/19 04:00 12/14/19 06:00 12/14/19 10:00 Temperature 37.1 C 37.1 C Pulse Rate 78 75 80 Respiratory Rate 12 18 Blood Pressure 149/77 H 142/78 H Pulse Oximetry 98 98 Intake/Output Intake/Output: Intake & Output
[2019-12-14] MEDS: ACIDOPHILUS/BULGARICUS CHEWABLE TABLET 1 TABLET PO (11:30)
[2019-12-14] MEDS: PREGABALIN 75 MG CAPSULE 150 MG PO (11:30)
[2019-12-14] MEDS: FOLIC ACID 1 MG TABLET PO (11:30)
[2019-12-14] MEDS: AMLODIPINE BESYLATE 5 MG TABLET 10 MG PO (13:30)
[2019-12-14] MEDS: MINERAL OIL 30 ML UDC PO (16:43)
[2019-12-14] MEDS: METHYLNALTREXONE 12 MG/0.6 ML VIAL SUB-Q (16:43)
[2019-12-14] MEDS: lisinopriL 20 MG TABLET 40 MG PO (21:11)
[2019-12-14] MEDS: SENNA/DOCUSATE SODIUM TABLET 2 TAB PO (21:11)
[2019-12-14] MEDS: ATORVASTATIN 40 MG TABLET 80 MG PO (21:12)
[2019-12-15] MEDS: BACLOFEN 5 MG TABLET PO (00:24)
[2019-12-15 01:10] VITALS: BP 157/77; PULSE 77; RESP 20; TEMP 36.4; O2SAT 99
[2019-12-15 05:00] VITALS: BP 126/59; PULSE 60; RESP 16; TEMP 36.9; O2SAT 98
[2019-12-15 05:03] LABS: Hematocrit 32.1 % (42.0-52.0); Hemoglobin 10.5 g/dL (14.0-18.0); Immature Platelet Fraction Pct 5.2 % (0.9-11.2); Mean Corpuscular HGB Conc 32.7 g/dl (32-36); Mean Corpuscular Hemoglobin 30.5 pg (26-34); Mean Corpuscular Volume 93.3 fl (80-100); Mean Platelet Volume 11.7 fl (7.4-10.4); Platelet Count Result 147 k/mm3 (150-375); Red Blood Count 3.44 M/mm3 (4.6-6.20); Red Cell Distribution Width 14.4 % (11.5-14.5)
[2019-12-15 05:13] LABS: Blood Urea Nitrogen 18 mg/dL (9-20); Calcium 8.3 mg/dL (8.4-10.2); Carbon Dioxide 30 mmol/L (22-30); Chloride 106 mmol/L (98-107); Estimated CRCL calculation 77 ml/min; Estimated Glomerular Filt Rate > 60; Glucose 85 mg/dL (75-110); Potassium 3.3 mmol/L (3.4-5.0); Sodium 139 mmol/L (137-145)
[2019-12-15] MEDS: POTASSIUM CHLORIDE 20 MEQ TABLET 40 MEQ PO (08:37)
[2019-12-15] MEDS: PREGABALIN 50 MG CAPSULE PO ×2 (08:38→17:12)
[2019-12-15] MEDS: PREGABALIN 75 MG CAPSULE PO ×2 (08:38→17:10)
[2019-12-15] MEDS: PSYLLIUM POWDER PACKET 1 PACKET PO (08:39)
[2019-12-15] MEDS: MINERAL OIL 30 ML UDC PO (08:39)
[2019-12-15] MEDS: polyethylene glycoL 3350 17 GM POWD.PACK PO (08:39)
[2019-12-15] MEDS: MIRABEGRON 25 MG ER TABLET PO (08:40)
[2019-12-15] MEDS: DOCUSATE SODIUM 100 MG CAPSULE PO (08:40)
[2019-12-15] MEDS: LINACLOTIDE 145 MCG 290 EACH PO (08:41)
[2019-12-15] MEDS: FERROUS SULFATE 324 MG TABLET PO (08:42)
[2019-12-15] MEDS: SENNA/DOCUSATE SODIUM TABLET 1 TAB PO (08:42)
[2019-12-15] MEDS: ASCORBIC ACID 500 MG TABLET PO (08:43)
[2019-12-15] MEDS: PANTOPRAZOLE SOD SESQUIHYDRATE 20 MG TAB PO (08:43)
[2019-12-15] MEDS: ASPIRIN 81 MG ENTERIC TABLET PO (08:44)
[2019-12-15] MEDS: NITROFURANTOIN MONOHYD MACROCR 100 MG CAP PO (08:44)
[2019-12-15 08:46] LABS: Magnesium 2.3 mg/dL (1.6-2.3)
[2019-12-15 11:05] VITALS: BP 98/50; PULSE 82; RESP 18; TEMP 36.2; O2SAT 98
[2019-12-15 12:06] VITALS: BP 80/50; PULSE 83
[2019-12-15] MEDS: PREGABALIN 75 MG CAPSULE 150 MG PO (12:24)
[2019-12-15] MEDS: LACTATED RINGERS 500 ML 999 ML IV CONT (12:24)
[2019-12-15] MEDS: FOLIC ACID 1 MG TABLET PO (12:25)
[2019-12-15] MEDS: ACIDOPHILUS/BULGARICUS CHEWABLE TABLET 1 TABLET PO (12:25)
[2019-12-15 13:51] VITALS: BP 120/72
--- NOTE | 2019-12-15 14:05 | PM.DS ---
DS: Admitting Diagnosis Admitting Diagnosis Admitting Diagnosis: Cerebral infarction, unspecified DS: Discharge Diagnosis Discharge Diagnosis (1) Fecal impaction: Code(s): K56.41 - Fecal impaction Status: Acute Assessment and Plan: Patient was having some lower abdominal discomfort and a CT scan was ordered which showed he has a stool impaction on the rectosigmoid with worsening chronic distension of his sigmoid colon, likely a combination of obstruction versus adynamic ileus. The patient had 4 very large bowel movements since yesterday. He is feeling much better today and not having much pain at all to his left lower quadrant. KUB showed only a small amount of stool left in his colon. Then afterwards he ended up having another large bowel movement. He is stable at this time to be discharged home and we will continue his home medications for constipation and will order for mineral oil 5 mils to be given only if severely constipated. (2) CVA (cerebral vascular accident): Code(s): I63.9 - Cerebral infarction, unspecified Status: Acute Assessment and Plan: Acute versus subacute. Patient reported generalized weakness, drowsiness, and left-sided pain. CT brain on arrival showed small left occipital lobe infarction, probable acute to subacute. We are getting his records from [place] for which he states he was diagnosed with a stroke about 3 months ago and had some changes to his peripheral vision on the left side. Fasting lipid profile was within normal range no adjustment to his statin medication is necessary at this time. Telemetry shows normal sinus rhythm. No acute abnormality or arrhythmia at this time. Echocardiogram showed Normal LV size. Moderate LVH, normal LV systolic function, ejection fraction about 70%. Normal diastolic function. No evidence of at large interatrial shunt on injection of agitated normal saline, image quality is suboptimal. Carotid Dopplers show Less than 50% stenosis bilaterally. MRI is unable be performed due to his pain stimulator and nerve stimulator Neurology evaluated the patient and would like to start him on Plavix daily for 4 weeks and have him follow-up in the office. (3) Generalized weakness: Code(s): R53.1 - Weakness Status: Acute Assessment and Plan: Patient reports generalized weakness and drowsiness which he feels is associated to a urinary tract infection for which he has frequently. He does have a chronic suprapubic catheter in place and is on 2 antibiotics twice daily to try and prevent UTIs. His urinalysis on arrival showed cloudy urine with 4-6 wbc's, but otherwise was not specific for a UTI. He did have uric acid crystals present along with 5-9 hyaline casts, and few mucus. Urine culture was negative, blood culture showed no growth at this time. Will continue on oral Levaquin for a total of 7 days for treatment of possible UTI since he states he has similar symptoms with 4 with UTIs. (4) Dizziness: Code(s): R42 - Dizziness and giddiness Status: Acute Assessment and Plan: Patient is still reporting some dizziness with sitting down. Patient states is normally a symptoms of his urinary tract infection. He is not having any more dizziness at this time. (5) Uric acid crystalluria: Code(s): R82.998 - Other abnormal findings in urine Status: Acute Assessment and Plan: This was an abnormal finding in his urinalysis and we will check a CT abd/pelvis to rule out any acute kidney stones. CT Abd/Pelvis did not show any signs of a kidney stone. (6) Anemia: Code(s): D64.9 - Anemia, unspecified Status: Acute Assessment and Plan: History of anemia as
--- NOTE | 2019-12-18 13:33 | PC.NURSE ---
Blood cx is negative
== END 2019-12-15 18:50 | DRG 64 ==
LOC: ANHED 22:03 → ANH2MED 22:23
PROVIDERS: Physician Assistant; Admitting Provider Family Medicine; Emergency Provider Emergency Medicine; Visit Provider Family Medicine
DX: I63.9 Cerebral infarction, unspecified (principal); G82.54 Quadriplegia, C5-C7 incomplete; V29.9XXS Motorcycle rider (driver) (passenger) injured in unspecified traffic accident, sequela; I69.398 Other sequelae of cerebral infarction; Z11.59 Encounter for screening for other viral diseases; H53.8 Other visual disturbances; R53.1 Weakness; R42 Dizziness and giddiness; K56.41 Fecal impaction; R82.998 Other abnormal findings in urine; N31.9 Neuromuscular dysfunction of bladder, unspecified; G90.09 Other idiopathic peripheral autonomic neuropathy; D64.9 Anemia, unspecified; I10 Essential (primary) hypertension; K21.9 Gastro-esophageal reflux disease without esophagitis; Z86.19 Personal history of other infectious and parasitic diseases; Z86.718 Personal history of other venous thrombosis and embolism; Z87.891 Personal history of nicotine dependence
CPT/HCPCS: 36415; 70450; 71045; 74018; 74176; 80048; 80053; 80061; 81001; 82728; 83615; 83690; 83735; 84550; 85025; 85027; 85055; 85610; 85730; 86140; 87040; 87086; 87635; 93880; 96361; 96365; 96375; 97110; 97116; 97161; 97165; 97530; 97535; 99285; A9270; C8929; C9803; G0378; J1956; J2212; J7030; J7120; Q9957; U0003

== ENCOUNTER 2020-03-01 08:11 | Emergency (ER) | payer MEDICARE, MEDICAID, SELFPAY ==
--- NOTE | ~2020-03-01 | XR_ITS ---
EXAMINATION: XR chest 1V portable DATE: 03/01/2020 09:06 INDICATION: Fever. TECHNIQUE: A single frontal view of the chest was obtained. COMPARISON: Chest single view 12/11/2019, CT abdomen and pelvis 12/13/2019, chest CT 03/18/2019 FINDINGS: There are pleural plaques bilaterally, which may be seen with asbestosis exposure. There is mild scarring at the lung bases. No pleural effusion or pneumothorax. The heart size is normal. Ther e is a filter in the inferior vena cava. IMPRESSION: 1. Stable mild scarring at the lung bases. Reviewed, dictated and finalized at location B.
[2020-03-01 08:15] VITALS: BP 111/62; PULSE 63; RESP 20; TEMP 36.6; O2SAT 94
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
[2020-03-01 08:42] LABS: Add Urine Microscopic? NO; Appearance Urine Clear (Clear); Bilirubin Urine Negative (Negative); Blood Urine Negative (Negative); Color Urine Straw (Yellow); Glucose Urine UA Negative (Negative); Ketones Urine Negative (Negative); Leukocyte Esterase Ur Negative LEU/UL (Negative); Nitrate Urine Negative (Negative); Protein Urine Negative (Negative); Urobilinogen Urine Negative mg/dL (<2.0)
[2020-03-01 08:46] LABS: Basophils Percent Auto 0.2 % (0.2-1.2); Eosinophils Absolute Auto 0.3 K/mm3 (0-0.3); Eosinophils Percent Auto 4.5 % (0-4.4); Hematocrit 33.3 % (42.0-52.0); Hemoglobin 10.8 g/dL (14.0-18.0); Immature Granulocyte Absolute 0.01 K/mm3 (0.00-0.031); Immature Granulocyte Percent A 0.2 % (0-0.5); Lymphocytes Absolute Auto 0.71 K/mm3 (0.9-3.2); Lymphocytes Percent Auto 12.9 % (18.3-44.2); Mean Corpuscular HGB Conc 32.4 g/dl (32-36); Mean Corpuscular Hemoglobin 31.1 pg (26-34); Mean Platelet Volume 11.6 fl (7.4-10.4); Monocytes Absolute Auto 0.6 K/mm3 (0.1-0.6); Neutrophils Percent Auto 72.2 % (45.5-73.1); Platelet Count Result 136 k/mm3 (150-375); Red Blood Count 3.47 M/mm3 (4.6-6.20); White Blood Count 5.5 K/mm3 (4.5-10.0)
[2020-03-01 08:58] LABS: Alanine Aminotransferase 21 U/L (4-50); Albumin Level 3.5 g/dL (3.5-5.1); Alkaline Phosphatase 80 U/L (38-126); Anion Gap 5 mmol/L (8-16); Aspartate Amino Transferase 19 U/L (17-59); Bilirubin,Total 0.2 mg/dL (0.2-1.3); Blood Urea Nitrogen 22 mg/dL (9-20); Calcium 7.8 mg/dL (8.4-10.2); Carbon Dioxide 25 mmol/L (22-30); Chloride 111 mmol/L (98-107); Estimated CRCL calculation 66 ml/min; Estimated Glomerular Filt Rate > 60; Glucose 106 mg/dL (75-110); Sodium 141 mmol/L (137-145)
[2020-03-01 10:05] VITALS: BP 129/77; PULSE 68; RESP 20; O2SAT 95
[2020-03-01 11:19] VITALS: BP 158/67; PULSE 66; RESP 20; O2SAT 96
--- NOTE | 2020-03-01 11:23 | PC.NURSE ---
1115 nurse to nurse report called to [facility] RN informed of pt returning via ems
[2020-03-01 19:28] LABS: SARS-CoV-2 RNA PCR Negative
== END 2020-03-01 12:48 ==
PROVIDERS: Emergency Provider Emergency Medicine
DX: M79.10 Myalgia, unspecified site (principal); Z20.828 Contact with and (suspected) exposure to other viral communicable diseases; G82.54 Quadriplegia, C5-C7 incomplete; S14.157 Other incomplete lesion at C7 level of cervical spinal cord; I10 Essential (primary) hypertension; I69.998 Other sequelae following unspecified cerebrovascular disease; H53.8 Other visual disturbances; K21.9 Gastro-esophageal reflux disease without esophagitis; N31.9 Neuromuscular dysfunction of bladder, unspecified; G90.09 Other idiopathic peripheral autonomic neuropathy; D64.9 Anemia, unspecified; Z86.718 Personal history of other venous thrombosis and embolism; Z87.440 Personal history of urinary (tract) infections; Z87.891 Personal history of nicotine dependence; Z86.19 Personal history of other infectious and parasitic diseases; V29.9XXS Motorcycle rider (driver) (passenger) injured in unspecified traffic accident, sequela; Z96.0 Presence of urogenital implants
CPT/HCPCS: 36415; 71045; 80053; 81003; 85025; 87635; 99283; C9803; U0003

== ENCOUNTER 2020-03-09 09:36 | Inpatient (IN) | payer MEDICARE, MEDICAID, SELFPAY ==
[2020-03-09] VITALS (8 sets, daily range): BP systolic 142–180; BP diastolic 68–88; PULSE 57–93; RESP 20; TEMP 36.5–36.8; O2SAT 95–97
--- NOTE | ~2020-03-09 | CT_ITS ---
EXAMINATION: CT brain wo con INDICATION: Altered mental status COMPARISON: 12/11/2019 TECHNIQUE: Standard unenhanced head CT. The dose-length product (DLP) was 681.00 mGy-cm. The mA was a djusted according to patient size. Iterative reconstruction technique was employed. FINDINGS: There is no acute intraparenchymal hemorrhage. No evidence of mass lesion. No evidence of a cute infarction. An old infarct is noted in the medial left occipital lobe. There is mild periventric ular and subcortical hypodensity probably related to small vessel ischemic disease. There is mild pro minence of the sulci and ventricles related to cerebral atrophy. Intracranial calcified cerebral athe rosclerosis is noted. There are no extra-axial collections. There is no mass effect or midline shift. The orbits and soft tissues are unremarkable. There is mild mucosal thickening of the paranasal sinu ses. IMPRESSION: 1. No acute intracranial abnormality. 2. Age related findings. Reviewed, dictated and finalized at location A.
--- NOTE | ~2020-03-09 | XR_ITS ---
EXAMINATION: XR chest 1V portable INDICATION: Altered mental status TECHNIQUE: Portable AP chest at 1025 hours COMPARISON: 03/01/2020 FINDINGS: There is unchanged scarring of the lung bases. No pleural effusion or pneumothorax is ident ified. The cardiomediastinal silhouette is normal. A partially imaged filter is noted in the inferior vena cava. IMPRESSION: 1. No acute cardiopulmonary abnormality. Reviewed, dictated and finalized at location A.
--- NOTE | 2020-03-09 09:44 | ED.AMS ---
HPI - Altered Mental Status General Chief Complaint: Altered Mental Status Stated Complaint: Altered mental status Time Seen by Provider: 03/09/20 09:44 Source: patient and EMS Mode of arrival: EMS Limitations: clinical condition History of Present Illness HPI narrative: Patient is a 69 year old male with a history of quadriplegic due to [facility], neck injury, chronic suprapubic Martínez catheter and frequent UTI who presents via EMS from an urgent care center intermediate for evaluation of altered mental status. Patient is typically very sharp alert and oriented to person, place and to time, and this morning intermediate staff thought he was more confused from baseline. He seemed to be more fatigued and lethargic per staff. Patient transferred to our facility, noted to be quite fatigued by EMS. Vital signs stable. At the time of my assessment, patient is alert and oriented to person, place, and to time. He can identify the president. He states that he feels very foggy. He denies any zenaida pain but states that he sometimes feels like this when he gets a urinary tract infection. Related Data Home Medications Medication Instructions Recorded Confirmed Dulcolax (bisacodyl) 10 mg PO DAILY PRN 12/11/19 12/12/19 Lactobacillus acidophilus 1 tab-cap PO DAILY@1200 12/11/19 12/12/19 Linzess 145 mcg PO QAM 12/11/19 12/12/19 Lyrica 125 mg PO BID 12/11/19 12/12/19 Macrobid 100 mg PO BID 12/11/19 12/12/19 acetaminophen 1,000 mg PO Q6-8H PRN 12/11/19 12/12/19 amlodipine 10 mg PO DAILY@1200 12/11/19 12/12/19 ascorbic acid (vitamin C) 500 mg PO DAILY 12/11/19 12/12/19 atorvastatin 80 mg PO HS 12/11/19 12/12/19 baclofen 5 mg PO TID PRN 12/11/19 12/12/19 cranberry 900 mg PO TID 12/11/19 12/12/19 docusate sodium [Colace] 100 mg PO DAILY 12/11/19 12/12/19 ferrous sulfate 325 mg PO EVERY OTHER DAY 12/11/19 12/12/19 fluticasone propionate 2 spray EACHNARE BID 12/11/19 12/12/19 folic acid 1 mg PO DAILY@1200 12/11/19 12/12/19 hydralazine 50 mg PO TID PRN 12/11/19 12/12/19 lidocaine 1 applic TOPICAL TID PRN 12/11/19 12/12/19 lisinopril 40 mg PO HS 12/11/19 12/12/19 melatonin 10 mg PO HS PRN 12/11/19 12/12/19 methenamine hippurate 1 g PO BID 12/11/19 12/12/19 pregabalin [Lyrica] 150 mg PO DAILY@1200 12/11/19 12/12/19 Metamucil 3.4 g PO BID 12/12/19 12/12/19 guaifenesin [Mucinex] 600 mg PO BID PRN 12/12/19 12/12/19 ileypcl-jparyzf-rzhlouh cb#1 1 applic TOPICAL Q3-4H PRN 12/12/19 12/12/19 miconazole nitrate 1 applic TOPICAL BID 12/12/19 12/12/19 mirabegron 25 mg PO DAILY 12/12/19 12/12/19 ra-fyk-xenup acid-lutein [Adult 1 tablet PO DAILY 12/12/19 12/12/19 Multivitamin (w-lutein)] oxycodone 5 mg PO Q6H PRN 12/12/19 12/12/19 polyethylene glycol 3350 [Miralax] 17 g PO DAILY PRN 12/12/19 12/12/19 sennosides-docusate sodium [Senna 2 tablet PO BID 12/12/19 12/12/19 Plus] simethicone [Gas Relief 80 mg PO DAILY PRN 12/12/19 12/12/19 (simethicone)] Allergies Allergy/AdvReac Type Severity Reaction Status Date / Time piperacillin Allergy Unknown Unknown Verified 03/09/20 09:48 sulfamethoxazole Allergy Unknown Unknown Verified 03/09/20 09:48 tazobactam Allergy Unknown Unknown Verified 03/09/20 09:48 tizanidine Allergy Unknown Unknown Verified 03/09/20 09:48 trimethoprim Allergy Unknown Unknown Verified 03/09/20 09:48 venlafaxine Allergy Unknown Unknown Verified 03/09/20 09:48 Review of Systems Review of Systems: Narrative: CONSTITUTIONAL: Denies fever CARDIOVASCULAR: Denies chest pain RESPIRATORY: Denies cough or dyspnea. GASTROINTESTINAL: Denies abdominal pain SKIN: Denies rash MUSCULOSKELETAL: Denies back pain NEUROLOGIC: Denies headache [facility] Past Medical History Medical History Anemia Cervicalgia Colitis Constipation Contracture of right hand COVID-19 Positive on 10/20/2019 CVA (cerebral vascular accident) States he was at [place] about 3 months ago for a CVA which affected his right-sided vasu
--- NOTE | 2020-03-09 09:45 | ECG_ITS ---
Measurements Intervals [place] Rate: 54 P: [place]: 0 QRS: 100 QRSD: 94 T: 87 QT: 391 QTc: 373 Interpretive Statements PROBABLY SINUS RHYTHM WITH FRIST DEGREE AV BLOCK (SIGNIFICANT BASELINE ARTIFACT) INCOMPLETE RIGHT BUNDLE BRANCH BLOCK BORDERLINE ST-T WAVE ABNORMALITY- HIGH LATERAL LEADS BASELINE ARTIFACT- I, II, III, AVR, AVL, AVF, V1-V6 ABNORMAL ECG Electronically Signed On 03-09-2020 11:13:01 CDT by Jourdan Dhaliwal D.O.
[2020-03-09 10:16] LABS: Alveolar/Arterial O2 Gradient 12.2 mmHg; Base Excess ABG 0.2 mEq/l (+/-2.0); Device ROOM AIR; Fractional Inspired Oxygen 21 %; HCO3 ABG 26.3 mEq/l (22.0-26.0); Modified Allen's Test Pass; Oxygen Content ABG 17.5 %vol (16.0-22.0); Oxygen Saturation ABG 95.2 % (95.0-100.0); Oxyhemoglobin 94.9 % THb (90.0-100.0); PCO2 ABG 48.3 mmHg (35.0-45.0); PO2 ABG 79.7 mmHg (80.0-100.0); Site Drawn RIGHT RADIAL; Total Hemoglobin 13.1 g/dL (12.0-18.0); pH ABG 7.354 (7.350-7.450)
[2020-03-09] MEDS: SODIUM CHLORIDE 0.9% IV 1,000 ML 999 ML IV CONT (10:18)
[2020-03-09 10:25] LABS: Add Urine Microscopic? YES; Appearance Urine Clear (Clear); Bacteria Urine 3+ /hpf; Bilirubin Urine Negative (Negative); Blood Urine 1+ (Negative); Color Urine Yellow (Yellow); Glucose Urine UA Negative (Negative); Ketones Urine Negative (Negative); Leukocyte Esterase Ur 1+ LEU/UL (Negative); Mucus Urine Rare /lpf; Nitrate Urine Negative (Negative); Protein Urine Negative (Negative); Specific Grav Ur 1.011 (1.001-1.035); Urobilinogen Urine Negative mg/dL (<2.0); WBC Urine 0-3 /hpf
[2020-03-09 11:06] LABS: Basophils Percent Auto 0.5 % (0.2-1.2); Eosinophils Absolute Auto 0.2 K/mm3 (0-0.3); Eosinophils Percent Auto 3.7 % (0-4.4); Hematocrit 38.6 % (42.0-52.0); Hemoglobin 12.3 g/dL (14.0-18.0); Immature Granulocyte Absolute 0.02 K/mm3 (0.00-0.031); Immature Granulocyte Percent A 0.4 % (0-0.5); Lymphocytes Absolute Auto 0.81 K/mm3 (0.9-3.2); Lymphocytes Percent Auto 14.2 % (18.3-44.2); Mean Corpuscular HGB Conc 31.9 g/dl (32-36); Mean Corpuscular Hemoglobin 30.6 pg (26-34); Mean Platelet Volume 11.2 fl (7.4-10.4); Monocytes Absolute Auto 0.6 K/mm3 (0.1-0.6); Monocytes Percent Auto 9.8 % (2.6-8.5); Neutrophils Absolute Auto 4.1 K/mm3 (1.3-6.7); Neutrophils Percent Auto 71.4 % (45.5-73.1); Platelet Count Result 145 k/mm3 (150-375); Red Blood Count 4.02 M/mm3 (4.6-6.20); Red Cell Distribution Width 13.9 % (11.5-14.5); White Blood Count 5.7 K/mm3 (4.5-10.0)
[2020-03-09 11:17] LABS: Ammonia < 9 umol/L (9-30)
[2020-03-09 11:19] LABS: Alanine Aminotransferase 23 U/L (4-50); Albumin Level 3.8 g/dL (3.5-5.1); Alkaline Phosphatase 86 U/L (38-126); Anion Gap 4 mmol/L (8-16); Aspartate Amino Transferase 22 U/L (17-59); Bilirubin,Total 0.4 mg/dL (0.2-1.3); Blood Urea Nitrogen 14 mg/dL (9-20); Calcium 8.3 mg/dL (8.4-10.2); Carbon Dioxide 28 mmol/L (22-30); Chloride 110 mmol/L (98-107); Estimated Glomerular Filt Rate > 60; Glucose 102 mg/dL (75-110); Potassium 4.1 mmol/L (3.4-5.0); Sodium 142 mmol/L (137-145)
[2020-03-09 11:21] LABS: Lactic Acid Reflex 0.6 mmol/L (0.7-2.1)
[2020-03-09 11:24] LABS: INR 1.1; Prothrombin Time 14.1 Seconds (11.1-14.7)
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
--- NOTE | 2020-03-09 14:56 | PC.NURSE ---
This patient, Tai Amado, was admitted to Medical Room 349-01. Patient/family oriented to hospital policies and general routines including ID bracelet, bed and alarms, visiting hours, pain management, procedures, bathroom and other care routines, personal items, smoking policy, room service/diet, and visiting hours. Valuables list has been completed. Information on how to activate the Rapid Response Team has been discussed. Patient/Family are encouraged to report perceived risks to care and to ask questions if they do not understand what they are told or what they should do.
[2020-03-09] MEDS: SODIUM CHLORIDE 0.9% IV 1,000 ML 100 ML IV CONT (15:28)
[2020-03-09 16:11] LABS: Creatine Kinase 104 U/L (55-170)
[2020-03-09 17:24] LABS: Lactic Acid Reflex 1.1 mmol/L (0.7-2.1)
[2020-03-09 17:27] LABS: CRP < 0.5 mg/dL (<1.0)
--- NOTE | 2020-03-09 18:45 | PC.NURSE ---
Called nurse at [facility] and requested information of maker of patient nerve stimulator in his left abdomen. She voiced that she will call back if she can find the information. Called patients power of traffic law attorney to get same information. No one answered. Left message to return call. No return call.
--- NOTE | 2020-03-09 19:04 | PC.NURSE ---
Notified Jessica Murphy that [facility] did not have any additional information on the Baclofen pump but she will have another nurse that has been their longer than her to look and give us a call if any information is found. No return call from patient s son.
[2020-03-09] MEDS: hydrALAZINE HCL 20 MG/ML VIAL 10 MG IV PUSH (20:49)
[2020-03-10] VITALS (10 sets, daily range): BP systolic 139–187; BP diastolic 60–92; PULSE 67–97; RESP 16–20; TEMP 37.3–37.4; O2SAT 95–100
[2020-03-10] MEDS: LISINOPRIL 40 MG TABLET PO ×2 (00:32→20:19)
[2020-03-10] MEDS: ATORVASTATIN 40 MG TABLET 80 MG PO ×2 (00:32→20:19)
[2020-03-10] MEDS: SODIUM CHLORIDE 0.9% IV 1,000 ML 100 ML IV CONT ×3 (00:33→20:23)
[2020-03-10 06:24] LABS: Hematocrit 35.7 % (42.0-52.0); Hemoglobin 11.7 g/dL (14.0-18.0); Mean Corpuscular HGB Conc 32.8 g/dl (32-36); Mean Corpuscular Hemoglobin 30.5 pg (26-34); Mean Platelet Volume 11.2 fl (7.4-10.4); Platelet Count Result 152 k/mm3 (150-375); Red Blood Count 3.84 M/mm3 (4.6-6.20); Red Cell Distribution Width 13.9 % (11.5-14.5); White Blood Count 7.7 K/mm3 (4.5-10.0)
[2020-03-10 06:57] LABS: Alanine Aminotransferase 21 U/L (4-50); Albumin Level 3.6 g/dL (3.5-5.1); Alkaline Phosphatase 83 U/L (38-126); Anion Gap 5 mmol/L (8-16); Aspartate Amino Transferase 24 U/L (17-59); Bilirubin,Total 0.4 mg/dL (0.2-1.3); Blood Urea Nitrogen 15 mg/dL (9-20); Calcium 7.9 mg/dL (8.4-10.2); Carbon Dioxide 26 mmol/L (22-30); Chloride 108 mmol/L (98-107); Estimated CRCL calculation 88 ml/min; Estimated Glomerular Filt Rate > 60; Glucose 89 mg/dL (75-110); Magnesium 2.1 mg/dL (1.6-2.3); Phosphorus 2.9 mg/dL (2.5-4.5); Potassium 3.8 mmol/L (3.4-5.0); Sodium 139 mmol/L (137-145)
[2020-03-10] MEDS: hydrALAZINE HCL 20 MG/ML VIAL 10 MG IV PUSH (07:15)
[2020-03-10] MEDS: PANTOPRAZOLE 40 MG TABLET PO (08:11)
[2020-03-10] MEDS: ENOXAPARIN 40 MG/0.4 ML SYRINGE SUB-Q (08:11)
--- NOTE | 2020-03-10 08:11 | PM.IMPN ---
Progress Note: A&P Assessment and Plan (1) Acute metabolic encephalopathy: Code(s): G93.41 - Metabolic encephalopathy Status: Acute Assessment and Plan: ----- patient has significantly improved and is back to baseline. It is still unclear what cause altered mental status. It could be a UTI which the antibiotics helped. Could also be that we were holding his pain medication. The patient is in significant pain and at this time I am going to restart his pain medications and see how he does. He still has a significant murmur and will need an echo before he goes. Blood cultures are still pending but will be monitored. As stated yesterday, differentials include bacteremia (new murmur), TIA, stroke, seizures or polypharmacy. UTI less likely since the urine is clear and UA looks okay but there is some bacteria so we will reflux culture it. ABG, chest x-ray and UA actually look okay. CT of the brain, TSH, and ammonia normal. No meningeal signs. He has some breakdown on his coccyx but does not appear to be a source of infection. COVID seems less likely since he is not having any fevers and the chest x-ray is normal. He had COVID-19 in October. He received ceftriaxone in the ER. Baclofen pump mal function appears to be less likely especially since he has improved. He has no symptoms such as include spasticity, low blood pressure and tingling sensation which occurs in withdraw. (2) Hypertension: Code(s): I10 - Essential (primary) hypertension Status: Acute Assessment and Plan: -----last blood pressure 187/92 and hydralazine was given. Awaiting on the repeat. Continue hydralazine and home amlodipine and lisinopril. I suspect his blood pressure is elevated due to pain. If he continues run high, may need to adjust home medications. (3) Anemia: Code(s): D64.9 - Anemia, unspecified Status: Acute Assessment and Plan: -----hemoglobin today Is 11.7. No bleeding suspected (4) History of CVA (cerebrovascular accident): Code(s): Z86.73 - Personal history of transient ischemic attack (TIA), and cerebral infarction without residual deficits Status: Acute Assessment and Plan: -----history of CVA in September and possible TIA in December. CT of the brain today is negative for acute abnormalities. He is unable to get an MRI due to a nerve stimulator. (5) Depression: Code(s): F32.9 - Major depressive disorder, single episode, unspecified Status: Acute Assessment and Plan: -----chronic, in good spirits. Continue Lyrica (6) GERD (gastroesophageal reflux disease): Code(s): K21.9 - Gastro-esophageal reflux disease without esophagitis Status: Acute Assessment and Plan: -----continue pantoprazole (7) Constipation: Code(s): K59.00 - Constipation, unspecified Status: Acute Assessment and Plan: -----patient has a longstanding history of constipation. Will continue his Colace, probiotic and Metamucil. Constipation likely due to narcotics and being bed-bound. (8) Heart murmur: Code(s): R01.1 - Cardiac murmur, unspecified Status: Acute Assessment and Plan: -----I have looked through the chart from December and his prior stays and I do not see any mention of a heart murmur. There is a loud 3/6 systolic murmur heard best at the apex. await echo Time Spent With Patient Time with patient: 25 - 35 minutes Subjective Date/time seen: 03/10/20 08:11 Interval history: Pt is a 70-year-old male here for altered mental status. Patient was seen today and is back to his baseline. He says he mostly remembers yesterday but knows he was confused. He is having a lot of pain in his right SI joint due to not getting his pain medication and muscle relaxer. He has not had a bowel movement yet today but had 1 yesterday. Pt denies nausea, vomiting, fevers, chills, constipation, diarrhea, chest p
[2020-03-10] MEDS: MIRABEGRON 25 MG ER TABLET PO (08:12)
[2020-03-10] MEDS: NITROFURANTOIN MONOHYD MACROCR 100 MG CAP PO ×2 (08:13→20:19)
[2020-03-10] MEDS: PSYLLIUM POWDER PACKET 1 PACKET PO ×2 (08:13→17:39)
[2020-03-10] MEDS: ASCORBIC ACID 500 MG TABLET PO (08:13)
[2020-03-10] MEDS: MULTIVITAMINS /C LUTEIN (CENTRUM SILVER) TABLET *BKC 1 TAB PO (08:14)
[2020-03-10] MEDS: ASPIRIN 81 MG ENTERIC TABLET PO (08:15)
[2020-03-10] MEDS: SENNA/DOCUSATE SODIUM TABLET 2 TAB PO (08:15)
[2020-03-10] MEDS: CLOPIDOGREL BISULFATE 75 MG TABLET PO (08:15)
[2020-03-10] MEDS: FERROUS SULFATE 324 MG TABLET PO (08:16)
[2020-03-10] MEDS: DOCUSATE SODIUM 100 MG CAPSULE PO (08:33)
[2020-03-10] MEDS: polyethylene glycoL 3350 17 GM POWD.PACK PO (08:33)
[2020-03-10] MEDS: BACLOFEN 5 MG TABLET PO (10:17)
[2020-03-10] MEDS: ONDANSETRON INJ 4 MG/2 ML VIAL IV PUSH (11:03)
[2020-03-10] MEDS: FOLIC ACID 1 MG TABLET PO (12:00)
[2020-03-10] MEDS: amLODIPine BESYLATE 5 MG TABLET 10 MG PO (12:00)
[2020-03-10] MEDS: PREGABALIN 75 MG CAPSULE PO (12:17)
[2020-03-10] MEDS: ACETAMINOPHEN 500 MG TABLET 1000 MG PO (12:18)
[2020-03-10] MEDS: PREGABALIN 50 MG CAPSULE PO (12:18)
[2020-03-10] MEDS: ACIDOPHILUS/BULGARICUS CHEWABLE TABLET 1 TABLET PO (14:32)
[2020-03-10] MEDS: PREGABALIN 50 MG CAPSULE 100 MG PO (20:19)
[2020-03-11] VITALS (10 sets, daily range): BP systolic 112–161; BP diastolic 63–69; PULSE 69–96; RESP 16–18; TEMP 37–37.2; O2SAT 95–97
--- NOTE | 2020-03-11 | ECHO_ITS ---
Patient Info Name: Tai Amado Age: 70 years : 1950 Gender: Male Ht: 71 in Wt: 190 lbs BSA: 2.09 m2 HR: 75 bpm BP: 161 / 69 mmHg Heart Rhythm: Sinus Rhythm Technical Quality: Good Exam Date: 03/11/2020 2:29 PM Exam Location: [facility] Patient Status: Inpatient Admit Date: 03/09/2020 Staff Ordering Physician: Jessica Price PA-C Superintendent [employer]: Tai Young RDCS Attending Provider: Diamond Grant MD Referring Physician: Albert RICHARDS; Exam Type: CA echo doppler color flow Study Info Indications R01.1 - Cardiac murmur, unspecified Complete two-dimensional, color flow and Doppler transthoracic echocardiogram is performed. History/Risk Factors New murmur; HTN. Summary 1. Complete two-dimensional, color flow and Doppler transthoracic echocardiogram is performed. 2. Left ventricular chamber dimension is normal. 3. Left ventricular systolic function is hyperdynamic, estimated at >70%. 4. There is moderate asymmetric septal increased left ventricular wall thickness. 5. The left ventricular diastolic function is grade I diastolic dysfunction. 6. Left atrial chamber dimension is mildly enlarged. 7. There is moderate aortic valve sclerosis. 8. There is mild aortic valve regurgitation. 9. The mitral valve has anterior prolapse. 10. There is mild tricuspid valve regurgitation. 11. The aortic root size at the sinus of Valsalva is moderately dilated. Left Ventricle Left ventricular chamber dimension is normal. Left ventricular systolic function is hyperdynamic, estimated at >70%. There is moderate asymmetric septal increased left ventricular wall thickness. The left ventricular diastolic function is grade I diastolic dysfunction. Right Ventricle Right ventricular chamber dimension is normal. Right ventricular systolic function is normal. Left Atria Left atrial chamber dimension is mildly enlarged. Right Atria Right atrial chamber dimension is normal. Atrial Septum Intact interatrial septum visualized by color flow imaging. Aortic Valve The aortic valve is trileaflet. There is moderate aortic valve sclerosis. There is no aortic valve stenosis. There is mild aortic valve regurgitation. Pulmonic Valve The pulmonic valve is normal. There is no pulmonic valve stenosis. There is trace pulmonic regurgitation. Mitral Valve The mitral valve has anterior prolapse. There is no mitral valve stenosis. There is trace mitral valve regurgitation. Tricuspid Valve The tricuspid valve leaflets are normal. There is no significant tricuspid valve stenosis. There is mild tricuspid valve regurgitation. Pericardium/Pleural The pericardium appears normal. There is no pericardial effusion. Inferior Vena Cava Dilated inferior vena cava with <50% collapse upon inspiration consistent with elevated right atrial pressure, 10 mmHg. Aorta The aortic root size at the sinus of Valsalva is moderately dilated. Left Ventricular Outflow Tract Name Value Normal LVOT 2D LVOT Diameter 2.3 cm LVOT Doppler LVOT Peak Gradient 11 mmHg LVOT
[2020-03-11 06:13] LABS: Anion Gap 5 mmol/L (8-16); Blood Urea Nitrogen 11 mg/dL (9-20); Calcium 8.1 mg/dL (8.4-10.2); Carbon Dioxide 25 mmol/L (22-30); Chloride 108 mmol/L (98-107); Estimated CRCL calculation 72 ml/min; Estimated Glomerular Filt Rate > 60; Glucose 85 mg/dL (75-110); Potassium 3.8 mmol/L (3.4-5.0); Sodium 138 mmol/L (137-145)
[2020-03-11] MEDS: SODIUM CHLORIDE 0.9% IV 1,000 ML 100 ML IV CONT (06:28)
[2020-03-11] MEDS: CLOPIDOGREL BISULFATE 75 MG TABLET PO (09:03)
[2020-03-11] MEDS: SENNA/DOCUSATE SODIUM TABLET 2 TAB PO ×2 (09:03→20:08)
[2020-03-11] MEDS: ENOXAPARIN 40 MG/0.4 ML SYRINGE SUB-Q (09:03)
[2020-03-11] MEDS: MULTIVITAMINS /C LUTEIN (CENTRUM SILVER) TABLET *BKC 1 TAB PO (09:03)
[2020-03-11] MEDS: PSYLLIUM POWDER PACKET 1 PACKET PO ×2 (09:04→17:12)
[2020-03-11] MEDS: polyethylene glycoL 3350 17 GM POWD.PACK PO (09:04)
[2020-03-11] MEDS: ASCORBIC ACID 500 MG TABLET PO (09:05)
[2020-03-11] MEDS: MIRABEGRON 25 MG ER TABLET PO (09:06)
[2020-03-11] MEDS: ASPIRIN 81 MG ENTERIC TABLET PO (09:06)
[2020-03-11] MEDS: PANTOPRAZOLE 40 MG TABLET PO (09:06)
[2020-03-11] MEDS: NITROFURANTOIN MONOHYD MACROCR 100 MG CAP PO ×2 (09:07→20:11)
[2020-03-11] MEDS: PREGABALIN 50 MG CAPSULE 100 MG PO ×2 (09:13→20:22)
[2020-03-11] MEDS: DOCUSATE SODIUM 100 MG CAPSULE PO (09:13)
[2020-03-11 11:39] LABS: SARS-CoV-2 RNA PCR Negative
[2020-03-11] MEDS: FOLIC ACID 1 MG TABLET PO (12:18)
[2020-03-11] MEDS: ACIDOPHILUS/BULGARICUS CHEWABLE TABLET 1 TABLET PO (12:18)
[2020-03-11] MEDS: amLODIPine BESYLATE 5 MG TABLET 10 MG PO (12:18)
[2020-03-11] MEDS: PREGABALIN 50 MG CAPSULE PO (12:18)
[2020-03-11] MEDS: PREGABALIN 75 MG CAPSULE PO (12:23)
[2020-03-11] MEDS: CIPROFLOXACIN 500 MG TAB PO ×2 (12:23→20:08)
--- NOTE | 2020-03-11 14:58 | PM.IMPN ---
Progress Note: A&P Assessment and Plan (1) Acute metabolic encephalopathy: Code(s): G93.41 - Metabolic encephalopathy Status: Acute Assessment and Plan: ----- patient has significantly improved and is back to baseline. It is still unclear what cause altered mental status. It could be a UTI which the antibiotics helped. Could also be that we were holding his pain medication (which have now been resumed) He still has a significant murmur which is new and echo is pending but verbal reports from tech looks okay. Blood cultures NGTD. As stated yesterday, differentials include bacteremia (new murmur), TIA, stroke, seizures or polypharmacy. UTI seemed less likely because the urine was clear and UA looks okay but there is some bacteria so that grew pseudomonas putida and abx were switched to cipro. Await sensativities. ABG, chest x-ray and UA actually look okay. CT of the brain, TSH, and ammonia normal. No meningeal signs. He has some breakdown on his coccyx but does not appear to be a source of infection. COVID neg, no fevers and the chest x-ray is normal. He had COVID-19 in October. He received ceftriaxone in the ER. Baclofen pump mal function appears to be less likely especially since he has improved. He has no symptoms such as include spasticity, low blood pressure and tingling sensation which occurs in withdraw. (2) Hypertension: Code(s): I10 - Essential (primary) hypertension Status: Acute Assessment and Plan: -----last blood pressure 112/63. Continue hydralazine and home amlodipine and lisinopril. (3) Anemia: Code(s): D64.9 - Anemia, unspecified Status: Acute Assessment and Plan: -----chronic, monitor. (4) History of CVA (cerebrovascular accident): Code(s): Z86.73 - Personal history of transient ischemic attack (TIA), and cerebral infarction without residual deficits Status: Acute Assessment and Plan: -----history of CVA in September and possible TIA in December. CT of the brain today is negative for acute abnormalities. He is unable to get an MRI due to a nerve stimulator. (5) Depression: Code(s): F32.9 - Major depressive disorder, single episode, unspecified Status: Acute Assessment and Plan: -----chronic, in good spirits. Continue Lyrica (6) GERD (gastroesophageal reflux disease): Code(s): K21.9 - Gastro-esophageal reflux disease without esophagitis Status: Acute Assessment and Plan: -----continue pantoprazole (7) Constipation: Code(s): K59.00 - Constipation, unspecified Status: Acute Assessment and Plan: -----patient has a longstanding history of constipation. Will continue his Colace, probiotic and Metamucil. Constipation likely due to narcotics and being bed-bound. (8) Heart murmur: Code(s): R01.1 - Cardiac murmur, unspecified Status: Acute Assessment and Plan: -----I have looked through the chart from December and his prior stays and I do not see any mention of a heart murmur. There is a loud 3/6 systolic murmur heard best at the apex. await echo Subjective Date/time seen: 03/11/20 14:58 Interval history: Pt is a 70-year-old male here for altered mental status. Patient was seen today and is back to his baseline. His complaint today is that he didn't sleep well overnight and kept waking up gasping and is worried he may have sleep apnea. He was tested long ago but doesn't remember the outcome. Other than that, he is doing much better. Pt denies nausea, vomiting, fevers, chills, constipation, diarrhea, chest pain, sob, or abdominal pain. Exam Narrative: Exam Narrative: General:Pt resting comfortably in bed in NAD HEENT: Normocephalic, atraumatic, PERRL, Sclerae anicteric, oral mucosa moist. No bite carballo in the Mouth or tongue. Neck: Supple, negative brudzinski sign. Resp: CTA Heart: RRR with loud systolic murmur heard best
[2020-03-11] MEDS: LISINOPRIL 40 MG TABLET PO (20:08)
[2020-03-11] MEDS: ATORVASTATIN 40 MG TABLET 80 MG PO (20:09)
[2020-03-11] MEDS: MELATONIN 5 MG TABLET 10 MG PO (20:22)
[2020-03-12 04:42] VITALS: BP 141/70; PULSE 61; RESP 12; TEMP 36.8; O2SAT 97
[2020-03-12 05:42] LABS: Hematocrit 32.5 % (42.0-52.0); Hemoglobin 10.6 g/dL (14.0-18.0); Mean Corpuscular HGB Conc 32.6 g/dl (32-36); Mean Corpuscular Hemoglobin 31.1 pg (26-34); Mean Corpuscular Volume 95.3 fl (80-100); Mean Platelet Volume 10.9 fl (7.4-10.4); Platelet Count Result 117 k/mm3 (150-375); Red Blood Count 3.41 M/mm3 (4.6-6.20); Red Cell Distribution Width 13.7 % (11.5-14.5); White Blood Count 5.2 K/mm3 (4.5-10.0)
[2020-03-12 06:00] LABS: Anion Gap 4 mmol/L (8-16); Blood Urea Nitrogen 12 mg/dL (9-20); Carbon Dioxide 26 mmol/L (22-30); Chloride 108 mmol/L (98-107); Estimated CRCL calculation 72 ml/min; Estimated Glomerular Filt Rate > 60; Glucose 88 mg/dL (75-110); Potassium 3.5 mmol/L (3.4-5.0); Sodium 138 mmol/L (137-145)
[2020-03-12] MEDS: PSYLLIUM POWDER PACKET 1 PACKET PO (09:05)
[2020-03-12] MEDS: polyethylene glycoL 3350 17 GM POWD.PACK PO (09:05)
[2020-03-12] MEDS: ENOXAPARIN 40 MG/0.4 ML SYRINGE SUB-Q (09:06)
[2020-03-12] MEDS: MIRABEGRON 25 MG ER TABLET PO (09:06)
[2020-03-12] MEDS: FERROUS SULFATE 324 MG TABLET PO (09:06)
[2020-03-12] MEDS: ASCORBIC ACID 500 MG TABLET PO (09:06)
[2020-03-12] MEDS: PREGABALIN 50 MG CAPSULE 100 MG PO (09:06)
[2020-03-12] MEDS: NITROFURANTOIN MONOHYD MACROCR 100 MG CAP PO (09:06)
[2020-03-12] MEDS: CIPROFLOXACIN 500 MG TAB PO (09:07)
[2020-03-12] MEDS: ASPIRIN 81 MG ENTERIC TABLET PO (09:07)
[2020-03-12] MEDS: SENNA/DOCUSATE SODIUM TABLET 2 TAB PO (09:07)
[2020-03-12] MEDS: CLOPIDOGREL BISULFATE 75 MG TABLET PO (09:07)
[2020-03-12] MEDS: DOCUSATE SODIUM 100 MG CAPSULE PO (09:07)
[2020-03-12] MEDS: PANTOPRAZOLE 40 MG TABLET PO (09:07)
[2020-03-12] MEDS: MULTIVITAMINS /C LUTEIN (CENTRUM SILVER) TABLET *BKC 1 TAB PO (09:07)
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
[2020-03-12] MEDS: PREGABALIN 75 MG CAPSULE PO (12:12)
[2020-03-12] MEDS: FOLIC ACID 1 MG TABLET PO (12:12)
[2020-03-12] MEDS: amLODIPine BESYLATE 5 MG TABLET 10 MG PO (12:12)
[2020-03-12] MEDS: PREGABALIN 50 MG CAPSULE PO (12:12)
[2020-03-12] MEDS: ACIDOPHILUS/BULGARICUS CHEWABLE TABLET 1 TABLET PO (12:12)
== END 2020-03-12 13:12 | DRG 698 ==
LOC: ANHED 12:19 → ANH3MED 16:25
PROVIDERS: Admitting Provider Family Medicine; Emergency Provider Emergency Medicine; PCP General Practice; Visit Provider Physician Assistant
DX: T83.511A Infection and inflammatory reaction due to indwelling urethral catheter, initial encounter (principal); G93.41 Metabolic encephalopathy; G82.54 Quadriplegia, C5-C7 incomplete; K59.2 Neurogenic bowel, not elsewhere classified; F05 Delirium due to known physiological condition; N39.0 Urinary tract infection, site not specified; B96.5 Pseudomonas (aeruginosa) (mallei) (pseudomallei) as the cause of diseases classified elsewhere; Z20.828 Contact with and (suspected) exposure to other viral communicable diseases; K21.9 Gastro-esophageal reflux disease without esophagitis; I10 Essential (primary) hypertension; R01.1 Cardiac murmur, unspecified; D64.9 Anemia, unspecified; F32.9 Major depressive disorder, single episode, unspecified; I69.398 Other sequelae of cerebral infarction; H53.8 Other visual disturbances; N31.9 Neuromuscular dysfunction of bladder, unspecified; V29.9XXS Motorcycle rider (driver) (passenger) injured in unspecified traffic accident, sequela; Z86.718 Personal history of other venous thrombosis and embolism; Z87.891 Personal history of nicotine dependence; Z86.19 Personal history of other infectious and parasitic diseases; K59.00 Constipation, unspecified; T40.695A Adverse effect of other narcotics, initial encounter
CPT/HCPCS: 36415; 36600; 70450; 71045; 80048; 80053; 80076; 81001; 82140; 82550; 82805; 83605; 83735; 84100; 84443; 85025; 85027; 85610; 85730; 86140; 87040; 87077; 87086; 87088; 87186; 87635; 93005; 93306; 94762; 96361; 96365; 96372; 96375; 96376; 99285; A9270; C9803; G0378; J0360; J0696; J1650; J2405; J7030; U0003

== ENCOUNTER 2020-06-28 18:52 | Emergency (ER) | payer MEDICARE, MEDICAID, SELFPAY ==
--- NOTE | ~2020-06-28 | XR_ITS ---
XR chest 1V portable 06/28/2020 19:16 Indication: Cough Procedure: AP portable chest Comparison: Comparison to multiple prior studies sequentially, with oldest reviewed study dated 10/31. Findings: Heart size normal. Bibasilar airspace infiltrates may represent atelectasis or developing p neumonia. No significant pleural effusion, edema or pneumothorax. No acute osseous abnormality. Impression: 1: Bibasilar infiltrates may represent atelectasis or pneumonia. Reviewed, dictated and finalized at location A. ER SERVICE ATTENDANT Impression: 1: Bibasilar infiltrates may represent atelectasis or pneumonia.
--- NOTE | ~2020-06-28 | CT_ITS ---
EXAMINATION: CT brain wo con DATE: 06/28/2020 19:46 INDICATION: Altered mental status. TECHNIQUE: Computed tomography (CT) of the head was performed without intravenous contrast. The dose- length product was 681.00 mGy-cm. Automated exposure control and iterative reconstruction technique w ere employed. COMPARISON: CT dated 03/09/2020 FINDINGS: There is a chronic left occipital lobe infarction. Mild generalized atrophy. Basilar cister ns are patent. There is intracranial atherosclerosis. There are scattered mild periventricular and jauregui bcortical white matter changes, most likely related to small vessel ischemic disease (microangiopathy ). No acute intracranial hemorrhage, infarction or mass. IMPRESSION: 1. No acute intracranial abnormality. 2: Chronic left occipital lobe infarction. 3: Chronic age-related findings. Reviewed, dictated and finalized at location A. NSED PRACTICAL VOCATIONAL NURSE
[2020-06-28 18:52] VITALS: BP 140/67; PULSE 68; RESP 22; TEMP 36.5; O2SAT 95
--- NOTE | 2020-06-28 18:58 | ECG_ITS ---
Measurements Intervals [place] Rate: 67 P: 99 PA: 177 QRS: 78 QRSD: 89 T: 71 QT: 362 QTc: 384 Interpretive Statements SINUS RHYTHM INCOMPLETE RIGHT BUNDLE BRANCH BLOCK BORDERLINE ST-T WAVE ABNORMALITY- HIGH LATERAL LEADS BASELINE ARTIFACT- I, II, III, AVR, AVL, AVF, V1-V6 BORDERLINE ECG Electronically Signed On 06-29-2020 7:27:52 MANAGER TRAVEL by Jourdan Dhaliwal D.O.
--- NOTE | 2020-06-28 19:06 | ED.GENADULT ---
HPI - General Adult General Chief complaint: Nausea/Vomiting/Diarrhea Stated complaint: nausea, generalized weakness Time Seen by Provider: 06/28/20 19:00 Source: RN notes reviewed History of Present Illness HPI narrative: Patient presents emergency department from [facility] for nausea and weakness. Patient states symptoms been ongoing for the past 2 days. States that he has a suprapubic catheter that was last changed 6 days ago and these are symptoms consistent with previous UTIs denies any fevers or chills chest pain shortness of breath abdominal pain vomiting diarrhea or any other symptoms Related Data Home Medications Medication Instructions Recorded Confirmed Dulcolax (bisacodyl) 10 mg PO DAILY PRN 12/11/19 03/09/20 Lactobacillus acidophilus 1 tab-cap PO DAILY@1200 12/11/19 03/09/20 Linzess 145 mcg PO QAM 12/11/19 03/09/20 Lyrica 100 mg PO BID 12/11/19 03/10/20 Macrobid 100 mg PO BID 12/11/19 03/09/20 acetaminophen 1,000 mg PO Q6H PRN 12/11/19 03/09/20 amlodipine 10 mg PO DAILY@1200 12/11/19 03/09/20 ascorbic acid (vitamin C) 500 mg PO DAILY 12/11/19 03/09/20 atorvastatin 80 mg PO HS 12/11/19 03/09/20 baclofen 5 mg PO TID PRN 12/11/19 03/09/20 cranberry 900 mg PO TID 12/11/19 03/09/20 docusate sodium [Colace] 100 mg PO DAILY 12/11/19 03/09/20 ferrous sulfate 325 mg PO EVERY OTHER DAY 12/11/19 03/09/20 folic acid 1 mg PO DAILY@1200 12/11/19 03/09/20 hydralazine 25 mg PO DAILY PRN 12/11/19 03/09/20 lidocaine 1 applic TOPICAL TID PRN 12/11/19 03/09/20 lisinopril 40 mg PO HS 12/11/19 03/09/20 melatonin 10 mg PO HS PRN 12/11/19 03/09/20 methenamine hippurate 1 g PO BID 12/11/19 03/09/20 pregabalin [Lyrica] 125 mg PO DAILY@1200 12/11/19 03/10/20 Metamucil 3.4 g PO BID 12/12/19 03/09/20 guaifenesin [Mucinex] 600 mg PO BID PRN 12/12/19 03/09/20 [id number]-mixlgvr-dxgmncj cb#1 1 applic TOPICAL Q4H PRN 12/12/19 03/09/20 miconazole nitrate 1 applic TOPICAL BID 12/12/19 03/09/20 mirabegron 25 mg PO DAILY 12/12/19 03/09/20 mw-vji-ltqfy acid-lutein [Adult 1 tablet PO DAILY 12/12/19 03/09/20 Multivitamin (w-lutein)] oxycodone 5 mg PO Q6H PRN 12/12/19 03/09/20 polyethylene glycol 3350 [Miralax] 17 g PO DAILY PRN 12/12/19 03/09/20 sennosides-docusate sodium [Senna 2 tablet PO BID 12/12/19 03/09/20 Plus] simethicone [Gas Relief 80 mg PO BID PRN 12/12/19 03/09/20 (simethicone)] glycerin-mineral oil 5 ml BYMOUTH TID PRN 03/09/20 03/09/20 Allergies Allergy/AdvReac Type Severity Reaction Status Date / Time piperacillin Allergy Unknown Unknown Verified 06/28/20 18:59 sulfamethoxazole Allergy Unknown Unknown Verified 06/28/20 18:59 tazobactam Allergy Unknown Unknown Verified 06/28/20 18:59 tizanidine Allergy Unknown Unknown Verified 06/28/20 18:59 trimethoprim Allergy Unknown Unknown Verified 06/28/20 18:59 venlafaxine Allergy Unknown Unknown Verified 06/28/20 18:59 Review of Systems Review of Systems: Narrative: Gen.: Denies fevers or chills Eyes: Denies eye pain or visual change ENT: Denies congestion Respiratory: Denies shortness of breath or cough CV: Denies chest pain or palpitations GI: Denies abdominal pain emesis or diarrhea reports nausea d reports chronic suprapubic catheter Musculoskeletal: Denies back pain or muscle pain Neuro: Denies numbness, tingling, reports weakness Skin: Denies rash Except as documented, all other systems reviewed and negative PMFSH Past Medical History Medical History (Updated 06/28/20 @ 22:34 by Madi Chaudhary DO) Anemia Cervicalgia Colitis Constipation Contracture of right hand COVID-19 Positive on 10/20/2019 CVA (cerebral vascular accident) States he was at [facility] about 3 months ago for a CVA which affected his right-sided peripheral vision Depression Essential hypertension Frequent UTI Chronic Suprapubic catheter and on two daily antibiotics to prevent UTIs GERD (gastroesophageal reflux disease) History of DVT (deep vein thrombosis) Hypertension Insomnia Neurogenic bowel Neuromuscu
[2020-06-28 19:21] LABS: Basophils Percent Auto 0.4 % (0.2-1.2); Eosinophils Absolute Auto 0.2 K/mm3 (0-0.3); Eosinophils Percent Auto 2.9 % (0-4.4); Hematocrit 41.3 % (42.0-52.0); Hemoglobin 13.2 g/dL (14.0-18.0); Immature Granulocyte Absolute 0.02 K/mm3 (0.00-0.031); Immature Granulocyte Percent A 0.3 % (0-0.5); Lymphocytes Absolute Auto 0.74 K/mm3 (0.9-3.2); Lymphocytes Percent Auto 10.2 % (18.3-44.2); Mean Corpuscular Hemoglobin 31.3 pg (26-34); Mean Corpuscular Volume 97.9 fl (80-100); Mean Platelet Volume 11.1 fl (7.4-10.4); Monocytes Absolute Auto 0.8 K/mm3 (0.1-0.6); Monocytes Percent Auto 10.5 % (2.6-8.5); Neutrophils Absolute Auto 5.5 K/mm3 (1.3-6.7); Neutrophils Percent Auto 75.7 % (45.5-73.1); Platelet Count Result 166 k/mm3 (150-375); Red Blood Count 4.22 M/mm3 (4.6-6.20); Red Cell Distribution Width 13.3 % (11.5-14.5); White Blood Count 7.3 K/mm3 (4.5-10.0)
[2020-06-28 19:26] LABS: Add Urine Microscopic? YES; Appearance Urine Clear (Clear); Bacteria Urine Trace /hpf; Bilirubin Urine Negative (Negative); Blood Urine Negative (Negative); Color Urine Yellow (Yellow); Glucose Urine UA Negative (Negative); Ketones Urine Negative (Negative); Leukocyte Esterase Ur Trace LEU/UL (Negative); Mucus Urine Moderate /lpf; Nitrate Urine Negative (Negative); Protein Urine 1+ mg/dL (Negative); Specific Grav Ur 1.019 (1.001-1.035); Squamous Epithelial Cell Urine Occasional /hpf (Few); Urobilinogen Urine Negative mg/dL (<2.0)
[2020-06-28 19:31] LABS: Lipase 54 U/L (23-300)
[2020-06-28 19:31] LABS: Alanine Aminotransferase 21 U/L (4-50); Alkaline Phosphatase 93 U/L (38-126); Anion Gap 4 mmol/L (8-16); Aspartate Amino Transferase 24 U/L (17-59); Bilirubin,Total 0.4 mg/dL (0.2-1.3); Blood Urea Nitrogen 20 mg/dL (9-20); Calcium 8.7 mg/dL (8.4-10.2); Carbon Dioxide 33 mmol/L (22-30); Chloride 103 mmol/L (98-107); Estimated Glomerular Filt Rate > 60; Glucose 104 mg/dL (75-110); Potassium 5.1 mmol/L (3.4-5.0); Sodium 140 mmol/L (137-145)
[2020-06-28 21:24] VITALS: BP 131/71; PULSE 80; RESP 15; TEMP 36.6; O2SAT 96
--- NOTE | 2020-06-28 22:16 | PC.NURSE ---
Called [facility] to see if they will accept pt. if covid swabbed
--- NOTE | 2020-06-28 23:10 | PC.NURSE ---
2258: CALLED [facility] FOR TRANSPORT BACK TO [facility]...ETA [id number]
[2020-06-28 23:30] VITALS: BP 128/79; PULSE 88; RESP 17; O2SAT 99
[2020-06-28 23:43] VITALS: BP 110/64; PULSE 72; RESP 19; O2SAT 99
--- NOTE | 2020-06-29 01:03 | PC.NURSE ---
CALLED [facility] FOR STATUS ON ETA ... 03:15
[2020-06-29 01:30] VITALS: BP 136/73; PULSE 68; RESP 15; O2SAT 99
--- NOTE | 2020-06-29 02:59 | PC.NURSE ---
Called [facility] for status on ETA...07:30
[2020-06-29 03:42] VITALS: BP 140/66; PULSE 65; RESP 12; O2SAT 98
[2020-06-29 19:30] LABS: SARS-CoV-2 RNA PCR Negative
== END 2020-06-28 23:30 ==
PROVIDERS: Emergency Medicine; Emergency Provider Emergency Medicine; PCP General Practice
DX: N39.0 Urinary tract infection, site not specified (principal); R53.1 Weakness; D64.9 Anemia, unspecified; I69.998 Other sequelae following unspecified cerebrovascular disease; H53.9 Unspecified visual disturbance; I10 Essential (primary) hypertension; K21.9 Gastro-esophageal reflux disease without esophagitis; Z20.828 Contact with and (suspected) exposure to other viral communicable diseases; G82.54 Quadriplegia, C5-C7 incomplete; V29.9XXS Motorcycle rider (driver) (passenger) injured in unspecified traffic accident, sequela; Z87.891 Personal history of nicotine dependence; Z86.718 Personal history of other venous thrombosis and embolism; I45.10 Unspecified right bundle-branch block; R94.31 Abnormal electrocardiogram [ECG] [EKG]; R91.8 Other nonspecific abnormal finding of lung field; N31.9 Neuromuscular dysfunction of bladder, unspecified
CPT/HCPCS: 36415; 70450; 71045; 80053; 81001; 83690; 85025; 87635; 93005; 96365; 99284; C9803; J1956; U0003

== ENCOUNTER 2022-04-18 08:23 | Emergency (ER) | payer OTHER, SELFPAY ==
--- NOTE | ~2022-04-18 | CT_ITS ---
EXAMINATION: CT abdomen pelvis wo con DATE: 04/18/2022 09:13 INDICATION: Low abdominal pain. Hematuria. TECHNIQUE: Computed tomography (CT) of the abdomen and pelvis was performed without intravenous contr ast. Automated exposure control and iterative reconstruction technique were employed. The dose-length product was 1200.87 mGy-cm. COMPARISON: CT abdomen and pelvis 12/12/2021 FINDINGS: The visualized portions of the lung bases demonstrates calcified pleural plaques, which may be seen with asbestos exposure. There is peripheral mild rounded atelectasis bilaterally. Again seen is a 5 mm nodule in left lower lobe, likely benign. No pleural effusion. The heart size is normal. T here are coronary artery calcifications. No pericardial effusion. Pectus excavatum is noted. There is bilateral gynecomastia. There is an 18 mm cyst in the liver. There are gallstones in the gallbladder , which is normal in size. The spleen, pancreas, and adrenal glands are normal. There is a 9 mm cyst in right kidney. Left kidney is normal. There is a suprapubic catheter in expected position. The blad ailyn is compressed. The sigmoid colon is distended, likely adynamic ileus. There is a moderate volume of stool in the colon. The appendix is normal. There is a filter in the inferior vena cava. There are no pathologically enlarged lymph nodes. There is no free intraperitoneal fluid. There is an electron ic device in the right abdominal subcutaneous fat with 2 subcutaneous electrodes posterior to the rig ht pelvis. There is a subcutaneous pump in left abdomen with intrathecal catheter. There is chronic s ubcutaneous fat stranding overlying the sacrum, consistent with inflammation versus scarring. There i s mild thoracolumbar spondylosis. IMPRESSION: 1. No etiology for hematuria. 2. Distended sigmoid colon, consistent with adynamic ileus. Reviewed, dictated and finalized at location A.
[2022-04-18 08:19] VITALS: BP 130/76; PULSE 67; RESP 19; TEMP 36.4; O2SAT 99
--- NOTE | 2022-04-18 08:40 | ED.ABDPAIN ---
HPI - Abdominal Pain General Chief Complaint: Abdominal Pain Stated Complaint: abnormal ua burning abd History of Present Illness HPI narrative: 72-year-old male with history of quadriplegia, CVA, hypertension, urinary tract infection presented the emergency department for evaluation of some lower abdominal discomfort for the past 2 days and an abnormal urinary analysis that was done at his care facility. Patient had a urinary analysis done a few days ago that came back as abnormal and the culture is pending. Due to the patient still having some discomfort he preferred to be evaluated today rather than wait for the culture result. Patient states that he does have some abdominal pain but states that sometimes with urinary tract infections he also has aching in his arms and legs. Patient states he is to have urinary tract infections more frequently but has not had one in approximately about 1 year. Patient states that his specialists are at the [place]. Related Data Home Medications Medication Instructions Recorded Confirmed Dulcolax (bisacodyl) 10 mg PO DAILY PRN Constipation 12/11/19 03/09/20 Lactobacillus acidophilus 1 tab-cap PO DAILY@1200 12/11/19 03/09/20 Lyrica 100 mg PO BID 12/11/19 03/10/20 Macrobid 100 mg PO BID 12/11/19 03/09/20 acetaminophen 1,000 mg PO Q6H PRN Pain 12/11/19 03/09/20 amlodipine 10 mg PO DAILY@1200 12/11/19 03/09/20 ascorbic acid (vitamin C) 500 mg 500 mg PO DAILY 12/11/19 03/09/20 tablet atorvastatin 80 mg tablet 80 mg PO HS 12/11/19 03/09/20 baclofen 5 mg tablet 5 mg PO TID PRN Muscle Spasm 12/11/19 03/09/20 cranberry fruit 450 mg tablet 900 mg PO TID 12/11/19 03/09/20 (cranberry) docusate sodium 100 mg capsule 100 mg PO DAILY 12/11/19 03/09/20 (Colace) ferrous sulfate 325 mg (65 mg 325 mg PO EVERY OTHER DAY 12/11/19 03/09/20 iron) tablet folic acid 1 mg PO DAILY@1200 12/11/19 03/09/20 hydralazine 25 mg PO DAILY PRN Hypertension 12/11/19 03/09/20 lidocaine 5 % topical cream 1 applic topical TID PRN Pain 12/11/19 03/09/20 linaclotide 290 mcg capsule 145 mcg PO QAM 12/11/19 03/09/20 (Linzess) lisinopril 40 mg PO HS 12/11/19 03/09/20 melatonin 10 mg tablet 10 mg PO HS PRN Insomnia 12/11/19 03/09/20 methenamine hippurate 1 g PO BID 12/11/19 03/09/20 pregabalin 100 mg capsule (Lyrica) 125 mg PO DAILY@1200 12/11/19 03/10/20 guaifenesin 600 mg tablet, 600 mg PO BID PRN Allergic Symptoms 12/12/19 03/09/20 extended release 12 hr (Mucinex) tcdpotm-beliflc-tccbcgvmurrva 1 applic topical Q4H PRN Pain 12/12/19 03/09/20 comb#1 11 %-11 % topical cream miconazole nitrate 1 applic topical BID 12/12/19 03/09/20 mirabegron 25 mg tablet,extended 25 mg PO DAILY 12/12/19 03/09/20 release 24 hr multivit with min-folic 1 tablet PO DAILY 12/12/19 03/09/20 acid-lutein 200 mcg-137.5 mcg chewable tablet (Adult Multivitamin (w-lutein)) oxycodone 5 mg tablet 5 mg PO Q6H PRN Pain 12/12/19 03/09/20 polyethylene glycol 3350 17 17 g PO DAILY PRN Constipation 12/12/19 03/09/20 gram/dose oral powder (Miralax) psyllium husk 3.4 gram/5.4 gram 3.4 g PO BID 12/12/19 03/09/20 oral powder (Metamucil) sennosides 8.6 mg-docusate sodium 2 tablet PO BID 12/12/19 03/09/20 50 mg tablet (Senna Plus) simethicone 80 mg chewable tablet 80 mg PO BID PRN Indigestion 12/12/19 03/09/20 (Gas Relief (simethicone)) glycerin-mineral oil 5 ml BYMOUTH TID PRN Constipation 03/09/20 03/09/20 Allergies Allergy/AdvReac Type Severity Reaction Status Date / Time piperacillin Allergy Unknown Unknown Verified 04/18/22 08:39 sulfamethoxazole Allergy Unknown Unknown Verified 04/18/22 08:39 tazobactam Allergy Unknown Unknown Verified 04/18/22 08:39 tizanidine Allergy Unknown Unknown Verified 04/18/22 08:39 trimethoprim Allergy Unknown Unknown Verified 04/18/22 08:39 venlafaxine Allergy Unknown Unknown Verified 04/18/22 08:39 Review of Systems Review of Systems: CONSTITUTIONAL: Denies fever, chills, or sweats. EYES: Denies visual medina
[2022-04-18 08:45] LABS: Basophils Percent Auto 0.5 % (0.2-1.2); Eosinophils Absolute Auto 0.1 K/mm3 (0-0.3); Hematocrit 36.4 % (42.0-52.0); Hemoglobin 11.8 g/dL (14.0-18.0); Immature Granulocyte Absolute 0.02 K/mm3 (0.00-0.031); Immature Granulocyte Percent A 0.3 % (0-0.5); Lymphocytes Absolute Auto 0.86 K/mm3 (0.9-3.2); Mean Corpuscular HGB Conc 32.4 g/dl (32-36); Mean Corpuscular Hemoglobin 30.6 pg (26-34); Mean Corpuscular Volume 94.3 fl (80-100); Mean Platelet Volume 10.9 fl (7.4-10.4); Monocytes Absolute Auto 0.7 K/mm3 (0.1-0.6); Monocytes Percent Auto 10.1 % (2.6-8.5); Neutrophils Absolute Auto 4.9 K/mm3 (1.3-6.7); Neutrophils Percent Auto 74.1 % (45.5-73.1); Platelet Count Result 144 k/mm3 (150-375); Red Blood Count 3.86 M/mm3 (4.6-6.20); Red Cell Distribution Width 13.5 % (11.5-14.5); White Blood Count 6.6 K/mm3 (4.5-10.0)
[2022-04-18 08:55] LABS: Add Urine Microscopic? YES; Appearance Urine Cloudy (Clear); Bacteria Urine Trace /hpf; Bilirubin Urine Negative (Negative); Blood Urine 1+ (Negative); Color Urine Yellow (Yellow); Glucose Urine UA Negative (Negative); Ketones Urine Negative (Negative); Leukocyte Esterase Ur Trace LEU/UL (Negative); Mucus Urine Rare /lpf; Nitrate Urine Negative (Negative); Protein Urine Negative (Negative); Specific Grav Ur 1.017 (1.001-1.035); Squamous Epithelial Cell Urine Occasional /hpf (Few); Urobilinogen Urine Negative mg/dL (<2.0)
[2022-04-18 08:59] LABS: Alanine Aminotransferase 32 U/L (6-50); Alkaline Phosphatase 96 U/L (38-126); Anion Gap 9 mmol/L (8-16); Aspartate Amino Transferase 29 U/L (17-59); Bilirubin,Total 0.5 mg/dL (0.2-1.3); Blood Urea Nitrogen 27 mg/dL (9-20); Calcium 8.5 mg/dL (8.4-10.2); Carbon Dioxide 28 mmol/L (22-30); Chloride 106 mmol/L (98-107); Estimated CRCL calculation 69 ml/min; Estimated Glomerular Filt Rate > 60; Glucose 112 mg/dL (65-110); Lipase 35 U/L (23-300); Potassium 4.1 mmol/L (3.4-5.0); Sodium 143 mmol/L (137-145)
[2022-04-18 09:36] VITALS: BP 123/74; PULSE 68; RESP 17; O2SAT 99
[2022-04-18] MEDS: CIPROFLOXACIN 500 MG TAB PO (09:40)
[2022-04-18 10:34] VITALS: BP 157/79; PULSE 68; RESP 17; O2SAT 99
== END 2022-04-18 10:36 ==
LOC: ANHED 09:41
PROVIDERS: Emergency Provider Emergency Medicine; PCP General Practice
DX: N39.0 Urinary tract infection, site not specified (principal); R31.9 Hematuria, unspecified; I10 Essential (primary) hypertension; K21.9 Gastro-esophageal reflux disease without esophagitis; G82.54 Quadriplegia, C5-C7 incomplete; N31.9 Neuromuscular dysfunction of bladder, unspecified; G60.9 Hereditary and idiopathic neuropathy, unspecified; D64.9 Anemia, unspecified; F32.A Depression, unspecified; Z86.718 Personal history of other venous thrombosis and embolism; Z86.73 Personal history of transient ischemic attack (TIA), and cerebral infarction without residual deficits; Z87.891 Personal history of nicotine dependence; Z79.02 Long term (current) use of antithrombotics/antiplatelets; Z79.82 Long term (current) use of aspirin; Z79.891 Long term (current) use of opiate analgesic
CPT/HCPCS: 36415; 74176; 80053; 81001; 83690; 85025; 87077; 87086; 87186; 99284; A9270

== ENCOUNTER 2022-08-29 12:14 | Observation (INO) | payer OTHER, SELFPAY ==
[2022-08-29] VITALS (26 sets, daily range): BP systolic 114–162; BP diastolic 66–81; PULSE 54–83; RESP 10–22; TEMP 36.4–37.6; O2SAT 96–100
--- NOTE | ~2022-08-29 | XR_ITS ---
XR chest 1V portable DATE: 08/29/2022 12:39 INDICATION: Fever and altered mental state. TECHNIQUE: Portable upright AP chest on August 29, 2022 at 1237 hours COMPARISON: 06/28/2020 portable AP chest at 1918 hours FINDINGS: Borderline heart size, not optimally evaluated on AP projection because of magnification. N o hilar or mediastinal enlargement. Minimal infiltrate or atelectasis is suggested at the lung bases. The lungs otherwise appear clear. N o pulmonary vascular congestion. No pneumothorax. Slight if any pleural effusion. IMPRESSION: Limited portable study suggesting minimal infiltrate or atelectasis at the lung bases Reviewed, dictated and finalized at location A. NICAL CUSTOMER SUPPORT SPECIALIST
--- NOTE | ~2022-08-29 | CT_ITS ---
EXAMINATION: CT brain wo con DATE: 08/29/2022 13:23 INDICATION: Altered mental state. Transient alteration of awareness. TECHNIQUE: Computed tomography (CT) of the head was performed without intravenous contrast. The mA wa s adjusted according to patient size. Iterative reconstruction technique was employed. Exam dose: 68 1.00 mGy-cm total exam DLP. COMPARISON: 06/28/2020 CT brain FINDINGS: There is chronic encephalomalacia in the medial left occipital lobe likely due to old left occipital infarct, posterior left cerebral artery distribution. Moderately prominent central and cortical cerebral atrophy. No intracranial mass lesion or hemorrhage or recent cerebrovascular accident. No subdural or epidural hematoma. Bilateral carotid siphon internal carotid artery calcifications. Nonspecific diminished attenuation o f the cerebral white matter, likely due to chronic small vessel ischemic changes. Included paranasal sinuses and mastoid air cells are unremarkable. No skull fracture or bone destruction is detected. IMPRESSION: Old left occipital cerebrovascular accident stable since 06/28/2020 Cerebral atherosclerosis and chronic small vessel ischemic changes of the cerebral white matter No acute intracranial finding Reviewed, dictated and finalized at Location [facility]. Reviewed, dictated and finalized at location A. OLL REPRESENTATIVE IMPRESSION: Old left occipital cerebrovascular accident stable since 0 Cerebral atherosclerosis and chronic small vessel ischemic changes of the cereb ral white matter No acute intracranial finding
--- NOTE | 2022-08-29 12:29 | ED.GENADULT ---
HPI - General Adult General Chief complaint: Weakness Stated complaint: weakness Time Seen by Provider: 08/29/22 12:20 History of Present Illness HPI narrative: 72-year-old male with history of quadriplegia secondary to C5-C7 injury presented to the emergency department from a local residential. They state that he has had more lethargic over the last 2 days. At the residential she was ANO x3. Upon arrival to emergency department patient is resting but easily responds to voice. Patient is ANO x4. Patient did have a low-grade fever upon arrival but denies any complaints at this time. Patient does have a baclofen pump in place. Patient also has an suprapubic Martínez catheter that was recently changed. Related Data Home Medications Medication Instructions Recorded Confirmed Dulcolax (bisacodyl) 10 mg PO DAILY PRN Constipation 12/11/19 08/29/22 Lactobacillus acidophilus 1 tab-cap PO DAILY@1200 12/11/19 08/29/22 Macrobid 100 mg PO BID 12/11/19 08/29/22 acetaminophen 1,000 mg PO Q6H PRN Pain 12/11/19 08/29/22 amlodipine 10 mg PO DAILY@1200 12/11/19 08/29/22 atorvastatin 80 mg tablet 80 mg PO HS 12/11/19 08/29/22 baclofen 5 mg tablet 5 mg PO TID PRN Muscle Spasm 12/11/19 08/29/22 docusate sodium 100 mg capsule 100 mg PO DAILY 12/11/19 08/29/22 (Colace) ferrous sulfate 325 mg (65 mg 325 mg PO EVERY OTHER DAY 12/11/19 08/29/22 iron) tablet folic acid 1 mg PO DAILY@1200 12/11/19 08/29/22 hydralazine 25 mg PO DAILY PRN Hypertension 12/11/19 08/29/22 lidocaine 5 % topical cream 1 applic topical Q8H PRN Pain 12/11/19 08/29/22 melatonin 10 mg tablet 10 mg PO HS PRN Insomnia 12/11/19 08/29/22 pregabalin 100 mg capsule (Lyrica) 100 mg PO BID 12/11/19 08/29/22 guaifenesin 600 mg tablet, 600 mg PO Q12H PRN Allergic 12/12/19 08/29/22 extended release 12 hr (Mucinex) Symptoms yygdali-uesybxt-vqekttsaerdkp 1 applic topical Q4H PRN Pain 12/12/19 08/29/22 comb#1 11 %-11 % topical cream mirabegron 25 mg tablet,extended 25 mg PO DAILY 12/12/19 08/29/22 release 24 hr polyethylene glycol 3350 17 17 g PO DAILY PRN Constipation 12/12/19 08/29/22 gram/dose oral powder (Miralax) psyllium husk 3.4 gram/5.4 gram 3.4 g PO BID 12/12/19 08/29/22 oral powder (Metamucil) sennosides 8.6 mg-docusate sodium 1 tablet PO BID 12/12/19 08/29/22 50 mg tablet (Senna Plus) simethicone 80 mg chewable tablet 125 mg PO BID PRN Indigestion 12/12/19 08/29/22 (Gas Relief (simethicone)) glycerin-mineral oil 5 ml BYMOUTH TID PRN Constipation 03/09/20 08/29/22 carboxymethylcellulose sodium 0.5 1 drp EACH EYE TID 08/29/22 08/29/22 % eye drops cholecalciferol (vitamin D3) 25 25 mcg PO DAILY 08/29/22 08/29/22 mcg (1,000 unit) capsule diclofenac sodium 1 % topical gel 2 g topical QID 08/29/22 08/29/22 duloxetine 60 mg capsule,delayed 60 mg PO DAILY 08/29/22 08/29/22 release hydralazine 50 mg tablet 50 mg PO DAILY PRN Hypertension 08/29/22 08/29/22 lidocaine 5 % topical patch 2 patch topical DAILY 08/29/22 08/29/22 (Lidoderm) lisinopril 10 mg tablet 10 mg PO DAILY 08/29/22 08/29/22 loratadine 10 mg tablet 10 mg PO DAILY 08/29/22 08/29/22 meloxicam 7.5 mg tablet 7.5 mg PO Q12H PRN Pain 08/29/22 08/29/22 naloxone 4 mg/actuation nasal spray 1 spray intranasal DIRECTED PRN 08/29/22 08/29/22 Opiate Reversal sodium phosphates 19 gram-7 118 ml RECTAL ONCE 08/29/22 08/29/22 gram/118 mL enema (Fleet Enema) triamcinolone acetonide 0.1 % 1 applic topical DAILY 08/29/22 08/29/22 topical cream zinc oxide 17 %-white petrolatum 1 applic topical QSHIFT 08/29/22 08/29/22 57 % topical paste Allergies Allergy/AdvReac Type Severity Reaction Status Date / Time piperacillin Allergy Unknown Unknown Verified 04/18/22 08:39 sulfamethoxazole Allergy Unknown Unknown Verified 04/18/22 08:39 tazobactam Allergy Unknown Unknown Verified 04/18/22 08:39 tizanidine Allergy Unknown Unknown Verified 04/18/22 08:39 trimethoprim Allergy Unknown Unknown Verified 04/18/22 08:39 venl
[2022-08-29 12:59] LABS: Basophils Percent Auto 0.5 % (0.2-1.2); Eosinophils Absolute Auto 0.2 K/mm3 (0-0.3); Eosinophils Percent Auto 3.8 % (0-4.4); Hematocrit 37.4 % (42.0-52.0); Hemoglobin 11.9 g/dL (14.0-18.0); Immature Granulocyte Absolute 0.01 K/mm3 (0.00-0.031); Immature Granulocyte Percent A 0.2 % (0-0.5); Lymphocytes Absolute Auto 0.74 K/mm3 (0.9-3.2); Lymphocytes Percent Auto 12.9 % (18.3-44.2); Mean Corpuscular HGB Conc 31.8 g/dl (32-36); Mean Corpuscular Hemoglobin 30.9 pg (26-34); Mean Corpuscular Volume 97.1 fl (80-100); Mean Platelet Volume 11.2 fl (7.4-10.4); Monocytes Absolute Auto 0.7 K/mm3 (0.1-0.6); Monocytes Percent Auto 12.3 % (2.6-8.5); Neutrophils Percent Auto 70.3 % (45.5-73.1); Platelet Count Result 144 k/mm3 (150-375); Red Blood Count 3.85 M/mm3 (4.6-6.20); Red Cell Distribution Width 13.7 % (11.5-14.5); White Blood Count 5.8 K/mm3 (4.5-10.0)
[2022-08-29 13:05] LABS: Carboxyhemoglobin 0.6 % THb (0-2.0); Fractional Inspired Oxygen 21 %; HCO3 ABG 31.3 mEq/l (22.0-26.0); Methemoglobin ABG 0.6 %THb (0-1.5); Oxygen Content ABG 9.3 %vol (16.0-22.0); PO2 FiO2 Ratio Arterial Blood 1.54 %; Reduced Hemoglobin 43.2 %THb (0-5.0); Total Hemoglobin 11.9 g/dL (12.0-18.0)
[2022-08-29 13:09] LABS: Alanine Aminotransferase 47 U/L (6-50); Albumin Level 4.2 g/dL (3.5-5.1); Alkaline Phosphatase 96 U/L (38-126); Anion Gap 3 mmol/L (8-16); Aspartate Amino Transferase 41 U/L (17-59); Bilirubin,Total 0.5 mg/dL (0.2-1.3); Blood Urea Nitrogen 24 mg/dL (9-20); Calcium 8.3 mg/dL (8.4-10.2); Carbon Dioxide 30 mmol/L (22-30); Chloride 106 mmol/L (98-107); Estimated CRCL calculation 77 ml/min; Estimated Glomerular Filt Rate > 60; Glucose 108 mg/dL (65-110); Lactic Acid Reflex 1.2 mmol/L (0.7-2.0); Potassium 3.9 mmol/L (3.4-5.0); Sodium 139 mmol/L (137-145)
[2022-08-29 13:14] LABS: Ammonia < 9 umol/L (9-30)
[2022-08-29 13:17] LABS: pH ABG 7.285 (7.350-7.450)
[2022-08-29 13:18] LABS: PCO2 ABG 67.3 mmHg (35.0-45.0); PO2 ABG 32.3 mmHg (80.0-100.0)
[2022-08-29 13:19] LABS: Modified Allen's Test Pass; Oxygen Saturation ABG 53.1 % (95.0-100.0); Oxyhemoglobin 55.6 % THb (90.0-100.0); Site Drawn RIGHT RADIAL
[2022-08-29 13:27] LABS: Appearance Urine Slightly Cloudy (Clear); Bilirubin Urine Negative (Negative); Blood Urine Trace-lysed (Negative); Color Urine Yellow (Yellow); Glucose Urine UA Negative (Negative); Ketones Urine Negative (Negative); Leukocyte Esterase Ur 1+ LEU/UL (Negative); Nitrate Urine Positive (Negative); Protein Urine 1+ mg/dL (Negative); Specific Grav Ur 1.025 (1.001-1.035); Urobilinogen Urine 0.2 mg/dL (<2.0); pH Urine 5.5 (5.0-9.0)
[2022-08-29 13:30] LABS: Bacteria Urine Trace /hpf; Mucus Urine Heavy /lpf; Squamous Epithelial Cell Urine Occasional /hpf (Few); WBC Urine >75 /hpf
[2022-08-29 13:31] LABS: Add Urine Microscopic? YES
[2022-08-29 13:36] LABS: Influenza A QL RT-PCR Negative (Negative); Influenza B QL RT-PCR Negative (Negative); RSV RNA, RT-PCR Negative (Negative); SARS-CoV-2 RNA PCR Negative
[2022-08-29 13:53] LABS: INR 1.1; Prothrombin Time 13.6 Seconds (11.1-14.7)
[2022-08-29 13:55] LABS: Partial Thromboplastin Time 33.9 SECONDS (22.3-36.8)
[2022-08-29 14:52] LABS: Alveolar/Arterial O2 Gradient 3.8 mmHg; Base Excess ABG 0.2 mEq/l (+/-2.0); Fractional Inspired Oxygen 21 %; HCO3 ABG 27.1 mEq/l (22.0-26.0); Oxygen Content ABG 15.3 %vol (16.0-22.0); Oxygen Saturation ABG 94.9 % (95.0-100.0); Oxyhemoglobin 94.1 % THb (90.0-100.0); PCO2 ABG 54.1 mmHg (35.0-45.0); PO2 ABG 81.1 mmHg (80.0-100.0); PO2 FiO2 Ratio Arterial Blood 3.86 %; Total Hemoglobin 11.5 g/dL (12.0-18.0); pH ABG 7.317 (7.350-7.450)
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
[2022-08-29 15:34] LABS: Modified Allen's Test Pass; Site Drawn RIGHT RADIAL
--- NOTE | 2022-08-29 15:53 | PC.NURSE ---
Mana LAZAR at bedside, stated ok to take pt off of bipap for trial to eat/drink
--- NOTE | 2022-08-29 17:58 | ADMGEN ---
This patient, Tai Amado, was admitted to IMU Room 204-01. Patient/family oriented to hospital policies and general routines including ID bracelet, bed and alarms, visiting hours, pain management, procedures, bathroom and other care routines, personal items, smoking policy, room service/diet, and visiting hours. Information on how to activate the Rapid Response Team has been discussed. Patient/Family are encouraged to report perceived risks to care and to ask questions if they do not understand what they are told or what they should do.
[2022-08-29 22:35] LABS: Amphetamine Screen Urine Negative (Negative); Barbiturate Screen Urine Negative (Negative); Benzodiazepines Screen Urine Negative (Negative); Cannabinoid Screen Urine Negative (Negative); Cocaine Screen Urine Negative (Negative); Methadone Screen Urine Negative (Negative); Opiate Screen Urine Negative (Negative); Phencyclidine Screen Urine Negative (Negative)
[2022-08-29] MEDS: SODIUM CHLORIDE 0.9% IV 1,000 ML 100 ML IV CONT (23:10)
[2022-08-29] MEDS: PREGABALIN (*CRX) 50 MG CAPSULE 100 MG PO (23:10)
[2022-08-29] MEDS: ATORVASTATIN 40 MG TABLET 80 MG PO (23:10)
[2022-08-29] MEDS: DICLOFENAC SODIUM 1% 100 GM GEL (*BKC) TOPICAL (23:11)
[2022-08-29] MEDS: NITROFURANTOIN MONOHYD MACROCR 100 MG CAP PO (23:11)
[2022-08-30] VITALS (10 sets, daily range): BP systolic 143–154; BP diastolic 69–74; PULSE 69–93; RESP 16–20; TEMP 36.6; O2SAT 95–99
[2022-08-30 04:18] LABS: Hematocrit 35.4 % (42.0-52.0); Hemoglobin 11.3 g/dL (14.0-18.0); Mean Corpuscular HGB Conc 31.9 g/dl (32-36); Mean Corpuscular Hemoglobin 30.6 pg (26-34); Mean Corpuscular Volume 95.9 fl (80-100); Mean Platelet Volume 11.2 fl (7.4-10.4); Platelet Count Result 142 k/mm3 (150-375); Red Blood Count 3.69 M/mm3 (4.6-6.20); Red Cell Distribution Width 13.3 % (11.5-14.5); White Blood Count 6.1 K/mm3 (4.5-10.0)
[2022-08-30 04:31] LABS: Anion Gap 3 mmol/L (8-16); Blood Urea Nitrogen 20 mg/dL (9-20); Calcium 7.9 mg/dL (8.4-10.2); Carbon Dioxide 29 mmol/L (22-30); Chloride 106 mmol/L (98-107); Estimated CRCL calculation 86 ml/min; Estimated Glomerular Filt Rate > 60; Glucose 95 mg/dL (65-110); Magnesium 2.1 mg/dL (1.6-2.3); Potassium 3.7 mmol/L (3.4-5.0); Sodium 138 mmol/L (137-145)
[2022-08-30] MEDS: ARTIFICIAL TEARS OPHTH SOLN 15 ML BOTTLE 1 DROP EACH EYE (09:46)
[2022-08-30] MEDS: DOCUSATE SODIUM 100 MG CAPSULE PO (09:47)
[2022-08-30] MEDS: NITROFURANTOIN MONOHYD MACROCR 100 MG CAP PO (09:47)
[2022-08-30] MEDS: PSYLLIUM POWDER PACKET 1 PACKET PO (09:47)
[2022-08-30] MEDS: lisinopriL 10 MG TABLET PO (09:47)
[2022-08-30] MEDS: ASPIRIN 81 MG ENTERIC TABLET PO (09:47)
[2022-08-30] MEDS: MIRABEGRON 25 MG ER TABLET PO (09:47)
[2022-08-30] MEDS: LORATADINE 10 MG TABLET PO (09:47)
[2022-08-30] MEDS: SENNA/DOCUSATE SODIUM TABLET 1 TAB PO (09:47)
[2022-08-30] MEDS: PREGABALIN (*CRX) 50 MG CAPSULE 100 MG PO (09:48)
[2022-08-30] MEDS: FERROUS SULFATE 324 MG TABLET PO (09:48)
[2022-08-30] MEDS: CHOLECALCIFEROL 1,000 UNITS TABLET 1000 UNITS PO (09:48)
[2022-08-30] MEDS: DULoxetine HCL 60 MG CAPSULE.DR PO (09:48)
[2022-08-30] MEDS: LIDOCAINE 5% PATCH 2 PATCH TOPICAL (10:14)
--- NOTE | 2022-08-30 12:31 | PM.DS ---
DS: Admitting Diagnosis Discharge Date 08/30/2022 Admitting Diagnosis Altered mental status DS: Discharge Diagnosis Discharge Diagnosis (1) Abnormal urinalysis: Code(s): R82.90 - Unspecified abnormal findings in urine Status: Acute (2) Acute respiratory failure with hypercapnia: Code(s): J96.02 - Acute respiratory failure with hypercapnia Status: Acute (3) Confusion: Code(s): R41.0 - Disorientation, unspecified Status: Acute (4) Hypertension: Code(s): I10 - Essential (primary) hypertension Status: Acute (5) Lower extremity edema: Code(s): R60.0 - Localized edema Status: Acute DS: Summary Hospital Course Hospital Course: 72-year-old male with history of 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 Patient is a poor historian and some of the following history is obtained via a review of his EMR. At baseline he is reportedly alert and oriented x4 however today he was reportedly only alert to self at the longterm and he was sent in for evaluation. Staff reports that he had a low-grade fever and they were worried that he may have a urinary tract infection. On arrival to the emergency department he was alert and oriented x3 though he did report that he felt confused earlier this morning however he was not able to provide me with any further specifics. He has a baclofen pump which is refilled every 9 weeks and he thinks it has been at least a month since his last fill. To his knowledge she has not been started on any new medications. He denies fever, chills, sweats, cold and flu symptoms, headache, neck ache, and fall. He has not noticed changes in his chronic weakness, contractions, or paresthesias. No abdominal or low back pain. ABG showed a pH of 7.285, pCO2 67.3, bicarb 31.3 (appears to be a venous gas) and he was placed on BiPAP with improvement in his pH and pCO2 on repeat ABG. He has no known history of respiratory failure or sleep apnea. Very rarely he will wake up at night gasping for air. Urine culture came back positive for Pseudomonas UTI. All symptoms resolved with Levaquin. He was discharged in stable condition on Levaquin. Time Spent with Patient Time attestation: Total time spent providing and/or coordinating discharge services: Exam Narrative: General:?Chronically ill-appearing gentleman sitting up in bed in no acute distress HEENT:??PERRL, EOMI. Sclera anicteric. Neck:??Supple. No obvious carotid bruits Respiratory:?Currently on BiPAP. Respirations are nonlabored.? Lungs are clear to auscultation. Cardiovascular:??Regular rate and rhythm with S1-S2. Systolic murmur at the upper sternal border. Gastrointestinal:??Abdomen is soft, protuberant, and nontender with positive bowel sounds. Genitourinary:?Suprapubic catheter dressing is clean, dry, and intact. Skin:??Warm and dry.? No rash or lesions on limited exam. Extremities:??No cyanosis or clubbing.? Bilateral pitting lower extremity edema left greater than right. No palpable knots or cords. Psychiatric:?Cooperative. Appropriate mood.? Flat affect. DS: Data Data Completed and Pending Labs on day of discharge: Labs from last 24 hours 08/30/22 08/30/22 08/29/22 03:32 03:32 21:59 WBC 6.1 RBC 3.69 L Hgb 11.3 L Hct 35.4 L MCV 95.9 MCH 30.6 MCHC 31.9 L RDW 13.3 Plt Count 142 L MPV 11.2 H Immature Gran % (Auto) Neut % (Auto) Lymph % (Auto) [place] % (Auto) Eos % (Auto) Baso % (Auto) Lymph # (Auto) [place] # (Auto) Eos # (Auto) Baso # (Auto) Abs Immat Gran (auto) Absolute Neuts (auto) Absolute Nucleated RBC Nucleated RBC % PT INR APTT Puncture Site ABG pH ABG pCO2 ABG pO2 ABG PO2/FiO2 Ratio
== END 2022-08-30 14:30 ==
LOC: ANHED 12:54 → ANHIMU 08-30 12:31
PROVIDERS: Physician Assistant; Admitting Provider Internal Medicine; Emergency Provider Emergency Medicine; PCP Internal Medicine; Visit Provider Student in an Organized Health Care Education/Training Program
DX: N39.0 Urinary tract infection, site not specified (principal); B96.5 Pseudomonas (aeruginosa) (mallei) (pseudomallei) as the cause of diseases classified elsewhere; J96.02 Acute respiratory failure with hypercapnia; R41.0 Disorientation, unspecified; I10 Essential (primary) hypertension; I67.2 Cerebral atherosclerosis; R60.0 Localized edema; R53.83 Other fatigue; R53.1 Weakness; G82.54 Quadriplegia, C5-C7 incomplete; S14.105S Unspecified injury at C5 level of cervical spinal cord, sequela; Y33.XXXS Other specified events, undetermined intent, sequela; D64.9 Anemia, unspecified; F32.A Depression, unspecified; N31.9 Neuromuscular dysfunction of bladder, unspecified; R90.82 White matter disease, unspecified; Z96.0 Presence of urogenital implants; Z20.822 Contact with and (suspected) exposure to COVID-19; K21.9 Gastro-esophageal reflux disease without esophagitis; Z87.891 Personal history of nicotine dependence; Z86.73 Personal history of transient ischemic attack (TIA), and cerebral infarction without residual deficits; Z86.16 Personal history of COVID-19; Z86.718 Personal history of other venous thrombosis and embolism; Z87.440 Personal history of urinary (tract) infections; Z79.52 Long term (current) use of systemic steroids; Z79.899 Other long term (current) drug therapy
CPT/HCPCS: 36415; 36600; 70450; 71045; 80048; 80053; 80307; 81001; 82140; 82375; 82607; 82805; 83050; 83605; 83735; 84443; 85025; 85027; 85610; 85730; 87077; 87086; 87186; 87637; 96361; 96365; 99285; A9270; G0378; J0696; J7030

== ENCOUNTER 2022-10-08 15:41 | Emergency (ER) | payer OTHER, SELFPAY ==
[2022-10-08 15:47] VITALS: BP 121/58; PULSE 73; RESP 12; TEMP 36.1; O2SAT 99
[2022-10-08 17:51] LABS: Basophils Absolute Auto 0.1 K/mm3 (0.0-0.1); Basophils Percent Auto 0.7 % (0.2-1.2); Eosinophils Absolute Auto 0.2 K/mm3 (0-0.3); Eosinophils Percent Auto 3.2 % (0-4.4); Hematocrit 38.8 % (42.0-52.0); Hemoglobin 12.5 g/dL (14.0-18.0); Immature Granulocyte Absolute 0.02 K/mm3 (0.00-0.031); Immature Granulocyte Percent A 0.3 % (0-0.5); Lymphocytes Absolute Auto 0.89 K/mm3 (0.9-3.2); Mean Corpuscular HGB Conc 32.2 g/dl (32-36); Mean Corpuscular Hemoglobin 30.9 pg (26-34); Mean Corpuscular Volume 95.8 fl (80-100); Mean Platelet Volume 11.1 fl (7.4-10.4); Monocytes Absolute Auto 0.7 K/mm3 (0.1-0.6); Monocytes Percent Auto 10.5 % (2.6-8.5); Neutrophils Percent Auto 72.3 % (45.5-73.1); Platelet Count Result 185 k/mm3 (150-375); Red Blood Count 4.05 M/mm3 (4.6-6.20); Red Cell Distribution Width 12.9 % (11.5-14.5); White Blood Count 6.9 K/mm3 (4.5-10.0)
[2022-10-08 17:58] LABS: Appearance Urine Cloudy (Clear); Bacteria Urine 4+ /hpf; Bilirubin Urine Negative (Negative); Color Urine Dark Yellow (Yellow); Glucose Urine UA Negative (Negative); Ketones Urine Negative (Negative); Leukocyte Esterase Ur 2+ LEU/UL (Negative); Nitrate Urine Negative (Negative); Protein Urine 1+ mg/dL (Negative); RBC Urine 0-2 /hpf (0-2); Specific Grav Ur 1.022 (1.001-1.035); Squamous Epithelial Cell Urine Occasional /hpf (Few); Urobilinogen Urine 0.2 mg/dL (<2.0); WBC Urine 51-100 /hpf; pH Urine 5.5 (5.0-9.0)
[2022-10-08 18:02] LABS: Add Urine Microscopic? YES
[2022-10-08 18:03] LABS: Alanine Aminotransferase 30 U/L (6-50); Albumin Level 4.4 g/dL (3.5-5.1); Alkaline Phosphatase 140 U/L (38-126); Anion Gap 3 mmol/L (8-16); Aspartate Amino Transferase 32 U/L (17-59); Bilirubin,Total 0.6 mg/dL (0.2-1.3); Blood Urea Nitrogen 30 mg/dL (9-20); Calcium 8.5 mg/dL (8.4-10.2); Carbon Dioxide 32 mmol/L (22-30); Chloride 103 mmol/L (98-107); Estimated Glomerular Filt Rate > 60; Glucose 117 mg/dL (65-110); Potassium 4.7 mmol/L (3.4-5.0); Sodium 138 mmol/L (137-145)
--- NOTE | 2022-10-08 19:44 | ED.MALEGU ---
HPI - Male Genitourinary General Chief complaint: Urogenital-Male Stated complaint: UTI Time Seen by Provider: 10/08/22 19:12 History of Present Illness HPI Narrative: This is a 72-year-old male with past history of hypertension, partial quadriplegia status post C6 fracture, who presents to the emergency department for cramping abdominal pain and increased urinary sediment concerning for UTI. Patient states he has noticed cramping pains for the past 3 weeks. This is similar to previous episodes of UTI. He has a suprapubic catheter in place, which he changes every 2 and half to 3 weeks. He denies fevers or chills but has some generalized weakness. Related Data Home Medications Medication Instructions Recorded Confirmed Dulcolax (bisacodyl) 10 mg PO DAILY PRN Constipation 12/11/19 08/29/22 Lactobacillus acidophilus 1 tab-cap PO DAILY@1200 12/11/19 08/29/22 Macrobid 100 mg PO BID 12/11/19 08/29/22 acetaminophen 1,000 mg PO Q6H PRN Pain 12/11/19 08/29/22 amlodipine 10 mg PO DAILY@1200 12/11/19 08/29/22 atorvastatin 80 mg tablet 80 mg PO HS 12/11/19 08/29/22 baclofen 5 mg tablet 5 mg PO TID PRN Muscle Spasm 12/11/19 08/29/22 docusate sodium 100 mg capsule 100 mg PO DAILY 12/11/19 08/29/22 (Colace) ferrous sulfate 325 mg (65 mg 325 mg PO EVERY OTHER DAY 12/11/19 08/29/22 iron) tablet folic acid 1 mg PO DAILY@1200 12/11/19 08/29/22 hydralazine 25 mg PO DAILY PRN Hypertension 12/11/19 08/29/22 lidocaine 5 % topical cream 1 applic topical Q8H PRN Pain 12/11/19 08/29/22 melatonin 10 mg tablet 10 mg PO HS PRN Insomnia 12/11/19 08/29/22 pregabalin 100 mg capsule (Lyrica) 100 mg PO BID 12/11/19 08/29/22 guaifenesin 600 mg tablet, 600 mg PO Q12H PRN Allergic 12/12/19 08/29/22 extended release 12 hr (Mucinex) Symptoms lpnmydl-nqlddxv-prprlylclgkmu 1 applic topical Q4H PRN Pain 12/12/19 08/29/22 comb#1 11 %-11 % topical cream mirabegron 25 mg tablet,extended 25 mg PO DAILY 12/12/19 08/29/22 release 24 hr polyethylene glycol 3350 17 17 g PO DAILY PRN Constipation 12/12/19 08/29/22 gram/dose oral powder (Miralax) psyllium husk 3.4 gram/5.4 gram 3.4 g PO BID 12/12/19 08/29/22 oral powder (Metamucil) sennosides 8.6 mg-docusate sodium 1 tablet PO BID 12/12/19 08/29/22 50 mg tablet (Senna Plus) simethicone 80 mg chewable tablet 125 mg PO BID PRN Indigestion 12/12/19 08/29/22 (Gas Relief (simethicone)) glycerin-mineral oil 5 ml BYMOUTH TID PRN Constipation 03/09/20 08/29/22 carboxymethylcellulose sodium 0.5 1 drp EACH EYE TID 08/29/22 08/29/22 % eye drops cholecalciferol (vitamin D3) 25 25 mcg PO DAILY 08/29/22 08/29/22 mcg (1,000 unit) capsule diclofenac sodium 1 % topical gel 2 g topical QID 08/29/22 08/29/22 duloxetine 60 mg capsule,delayed 60 mg PO DAILY 08/29/22 08/29/22 release hydralazine 50 mg tablet 50 mg PO DAILY PRN Hypertension 08/29/22 08/29/22 lidocaine 5 % topical patch 2 patch topical DAILY 08/29/22 08/29/22 (Lidoderm) lisinopril 10 mg tablet 10 mg PO DAILY 08/29/22 08/29/22 loratadine 10 mg tablet 10 mg PO DAILY 08/29/22 08/29/22 meloxicam 7.5 mg tablet 7.5 mg PO Q12H PRN Pain 08/29/22 08/29/22 naloxone 4 mg/actuation nasal spray 1 spray intranasal DIRECTED PRN 08/29/22 08/29/22 Opiate Reversal sodium phosphates 19 gram-7 118 ml RECTAL ONCE 08/29/22 08/29/22 gram/118 mL enema (Fleet Enema) triamcinolone acetonide 0.1 % 1 applic topical DAILY 08/29/22 08/29/22 topical cream zinc oxide 17 %-white petrolatum 1 applic topical QSHIFT 08/29/22 08/29/22 57 % topical paste Allergies Allergy/AdvReac Type Severity Reaction Status Date / Time piperacillin Allergy Unknown Unknown Verified 04/18/22 08:39 sulfamethoxazole Allergy Unknown Unknown Verified 04/18/22 08:39 tazobactam Allergy Unknown Unknown Verified 04/18/22 08:39 tizanidine Allergy Unknown Unknown Verified 04/18/22 08:39 trimethoprim Allergy Unknown Unknown Verified 04/18/22 08:39 venlafaxine Allergy Unknown Unknown Verified 04/18/22 08:39
[2022-10-08 20:07] VITALS: BP 139/73; PULSE 67; RESP 14; O2SAT 96
[2022-10-08] MEDS: lisinopriL 10 MG TABLET PO (21:12)
[2022-10-08 22:58] VITALS: BP 152/78; PULSE 76; RESP 16; O2SAT 96
== END 2022-10-09 02:17 ==
PROVIDERS: Emergency Medicine; Emergency Provider Preventive Medicine Aerospace Medicine; PCP Internal Medicine
DX: N39.0 Urinary tract infection, site not specified (principal); I10 Essential (primary) hypertension; G82.54 Quadriplegia, C5-C7 incomplete; N31.9 Neuromuscular dysfunction of bladder, unspecified; K59.2 Neurogenic bowel, not elsewhere classified; D64.9 Anemia, unspecified; K21.9 Gastro-esophageal reflux disease without esophagitis; I69.398 Other sequelae of cerebral infarction; Z86.718 Personal history of other venous thrombosis and embolism; Z87.891 Personal history of nicotine dependence; Z96.0 Presence of urogenital implants
CPT/HCPCS: 36415; 80053; 81001; 85025; 87077; 87086; 87186; 96365; 99284; A9270; J0696

== ENCOUNTER 2022-12-03 15:44 | Emergency (ER) | payer OTHER, SELFPAY ==
[2022-12-03 15:45] VITALS: BP 112/61; PULSE 70; RESP 16; TEMP 36.8; O2SAT 100
[2022-12-03 15:59] LABS: Appearance Urine Cloudy (Clear); Bacteria Urine 4+ /hpf; Bilirubin Urine Negative (Negative); Blood Urine Negative (Negative); Color Urine Dark Yellow (Yellow); Glucose Urine UA Negative (Negative); Ketones Urine Negative (Negative); Leukocyte Esterase Ur 2+ LEU/UL (Negative); Nitrate Urine Positive (Negative); Protein Urine Trace mg/dL (Negative); RBC Urine 0-2 /hpf (0-2); Specific Grav Ur 1.018 (1.001-1.035); Squamous Epithelial Cell Urine Occasional /hpf (Few); Urobilinogen Urine 0.2 mg/dL (<2.0); WBC Urine 51-100 /hpf; pH Urine 5.5 (5.0-9.0)
[2022-12-03 16:08] LABS: Add Urine Microscopic? YES
--- NOTE | 2022-12-03 16:37 | ED.GENADULT ---
HPI - General Adult General Chief complaint: Urogenital-Male Stated complaint: UTI s/s Time Seen by Provider: 12/03/22 16:14 Source: patient Mode of arrival: ambulatory Limitations: no limitations History of Present Illness HPI narrative: This is a 72-year-old male who is paraplegic status post a remote history of C-spine injury and presents to the ED with chief complaint of UTI symptoms. Patient states that he uses a suprapubic catheter for urination. However he knows he is getting UTI because his head is felt foggy. He states this is on occasion but he does not have any current confusion. He also reported some burning at the tip of the penis. He also noticed that he has had some sediment in his catheter bag. Denies fevers, chills, abdominal pain, flank pain, LOC, confusion. Related Data Home Medications Medication Instructions Recorded Confirmed Dulcolax (bisacodyl) 10 mg PO DAILY PRN Constipation 12/11/19 08/29/22 Lactobacillus acidophilus 1 tab-cap PO DAILY@1200 12/11/19 08/29/22 Macrobid 100 mg PO BID 12/11/19 08/29/22 acetaminophen 1,000 mg PO Q6H PRN Pain 12/11/19 08/29/22 amlodipine 10 mg PO DAILY@1200 12/11/19 08/29/22 atorvastatin 80 mg tablet 80 mg PO HS 12/11/19 08/29/22 baclofen 5 mg tablet 5 mg PO TID PRN Muscle Spasm 12/11/19 08/29/22 docusate sodium 100 mg capsule 100 mg PO DAILY 12/11/19 08/29/22 (Colace) ferrous sulfate 325 mg (65 mg 325 mg PO EVERY OTHER DAY 12/11/19 08/29/22 iron) tablet folic acid 1 mg PO DAILY@1200 12/11/19 08/29/22 hydralazine 25 mg PO DAILY PRN Hypertension 12/11/19 08/29/22 lidocaine 5 % topical cream 1 applic topical Q8H PRN Pain 12/11/19 08/29/22 melatonin 10 mg tablet 10 mg PO HS PRN Insomnia 12/11/19 08/29/22 pregabalin 100 mg capsule (Lyrica) 100 mg PO BID 12/11/19 08/29/22 guaifenesin 600 mg tablet, 600 mg PO Q12H PRN Allergic 12/12/19 08/29/22 extended release 12 hr (Mucinex) Symptoms zqrbotd-xguxcjc-kodzlyfmxvduo 1 applic topical Q4H PRN Pain 12/12/19 08/29/22 comb#1 11 %-11 % topical cream mirabegron 25 mg tablet,extended 25 mg PO DAILY 12/12/19 08/29/22 release 24 hr polyethylene glycol 3350 17 17 g PO DAILY PRN Constipation 12/12/19 08/29/22 gram/dose oral powder (Miralax) psyllium husk 3.4 gram/5.4 gram 3.4 g PO BID 12/12/19 08/29/22 oral powder (Metamucil) sennosides 8.6 mg-docusate sodium 1 tablet PO BID 12/12/19 08/29/22 50 mg tablet (Senna Plus) simethicone 80 mg chewable tablet 125 mg PO BID PRN Indigestion 12/12/19 08/29/22 (Gas Relief (simethicone)) glycerin-mineral oil 5 ml BYMOUTH TID PRN Constipation 03/09/20 08/29/22 carboxymethylcellulose sodium 0.5 1 drp EACH EYE TID 08/29/22 08/29/22 % eye drops cholecalciferol (vitamin D3) 25 25 mcg PO DAILY 08/29/22 08/29/22 mcg (1,000 unit) capsule diclofenac sodium 1 % topical gel 2 g topical QID 08/29/22 08/29/22 duloxetine 60 mg capsule,delayed 60 mg PO DAILY 08/29/22 08/29/22 release hydralazine 50 mg tablet 50 mg PO DAILY PRN Hypertension 08/29/22 08/29/22 lidocaine 5 % topical patch 2 patch topical DAILY 08/29/22 08/29/22 (Lidoderm) lisinopril 10 mg tablet 10 mg PO DAILY 08/29/22 08/29/22 loratadine 10 mg tablet 10 mg PO DAILY 08/29/22 08/29/22 meloxicam 7.5 mg tablet 7.5 mg PO Q12H PRN Pain 08/29/22 08/29/22 naloxone 4 mg/actuation nasal spray 1 spray intranasal DIRECTED PRN 08/29/22 08/29/22 Opiate Reversal sodium phosphates 19 gram-7 118 ml RECTAL ONCE 08/29/22 08/29/22 gram/118 mL enema (Fleet Enema) triamcinolone acetonide 0.1 % 1 applic topical DAILY 08/29/22 08/29/22 topical cream zinc oxide 17 %-white petrolatum 1 applic topical QSHIFT 08/29/22 08/29/22 57 % topical paste Allergies Allergy/AdvReac Type Severity Reaction Status Date / Time piperacillin Allergy Unknown Unknown Verified 12/03/22 16:22 sulfamethoxazole Allergy Unknown Unknown Verified 12/03/22 16:22 tazobactam Allergy Unknown Unknown Verified 12/03/22 16:22 tizanidine Allergy Unknown Unknown Verified
[2022-12-03] MEDS: CEFDINIR 300 MG CAPSULE PO (17:07)
== END 2022-12-03 17:17 ==
LOC: ANHED 16:45
PROVIDERS: Emergency Medicine; Emergency Provider Physician Assistant; PCP Internal Medicine
DX: N39.0 Urinary tract infection, site not specified (principal); G82.54 Quadriplegia, C5-C7 incomplete; S14.105S Unspecified injury at C5 level of cervical spinal cord, sequela; I69.998 Other sequelae following unspecified cerebrovascular disease; H53.8 Other visual disturbances; I10 Essential (primary) hypertension; N31.9 Neuromuscular dysfunction of bladder, unspecified; K21.9 Gastro-esophageal reflux disease without esophagitis; Z86.2 Personal history of diseases of the blood and blood-forming organs and certain disorders involving the immune mechanism; Z86.718 Personal history of other venous thrombosis and embolism; Z87.891 Personal history of nicotine dependence; Z79.82 Long term (current) use of aspirin; V29.99XS Rider (driver) (passenger) of other motorcycle injured in unspecified traffic accident, sequela
CPT/HCPCS: 81001; 87077; 87086; 87186; 99283; A9270

== ENCOUNTER 2022-12-04 19:46 | Emergency (ER) | payer OTHER, SELFPAY ==
--- NOTE | ~2022-12-04 | CT_ITS ---
EXAMINATION: CT brain wo con DATE: 12/04/2022 21:48 INDICATION: Altered mental status TECHNIQUE: Computed tomography (CT) of the head was performed without intravenous contrast. Sagittal and coronal reconstructions were performed. The mA was adjusted according to patient size. Iterative reconstruction technique was employed. The dose-length product was 605.33 mGy-cm. COMPARISON: head CT dated 08/29/22 FINDINGS: Density is a small region of encephalomalacia at the medial left occipital lobe consistent with seque la of old infarct. No acute intracranial hemorrhage, acute infarction or abnormal extra axial fluid c ollection. There is mild scattered white matter hypoattenuation consistent with chronic small vessel ischemic disease. Ventricles are normal and symmetric. No mass/mass effect. The orbits, paranasal si nuses and mastoid air cells are normal. IMPRESSION: 1. No acute intracranial process. 2. Unchanged small old left occipital infarct. Reviewed, dictated and finalized at location A.
--- NOTE | ~2022-12-04 | XR_ITS ---
EXAMINATION: XR chest 1V DATE: 12/04/2022 21:53 INDICATION: Cough TECHNIQUE: frontal view of the chest was obtained. COMPARISON: Chest radiograph dated 08/29/2022 FINDINGS: The left costophrenic angle is excluded from the [id number]. No focal airspace opacities, pulmonar y edema, pleural effusion or pneumothorax. The cardiomediastinal silhouette is within normal limits f or AP technique. Degenerative skeletal changes in the spine and at the right shoulder. IMPRESSION: 1. No acute cardiopulmonary disease. Reviewed, dictated and finalized at location A.
[2022-12-04 19:43] VITALS: BP 144/78; PULSE 80; RESP 13; TEMP 36.6; O2SAT 98
[2022-12-04 19:51] VITALS: PULSE 72
--- NOTE | 2022-12-04 19:53 | ECG_ITS ---
Measurements Intervals [place] Rate: 63 P: 9 IA: 269 QRS: -19 QRSD: 98 T: -47 QT: 405 QTc: 416 Interpretive Statements UNINTERPRETABLE EKG DUE TO SIGNIFICANT BASELINE ARTIFACT Electronically Signed On 12-05-2022 9:38:51 CDT by Kavon Mercado M.D.
[2022-12-04 20:18] LABS: Basophils Percent Auto 0.4 % (0.2-1.2); Eosinophils Absolute Auto 0.2 K/mm3 (0-0.3); Eosinophils Percent Auto 3.1 % (0-4.4); Hematocrit 40.2 % (42.0-52.0); Hemoglobin 12.8 g/dL (14.0-18.0); Immature Granulocyte Absolute 0.01 K/mm3 (0.00-0.031); Immature Granulocyte Percent A 0.1 % (0-0.5); Immature Platelet Fraction Pct 8.7 % (0.9-11.2); Lymphocytes Absolute Auto 0.94 K/mm3 (0.9-3.2); Lymphocytes Percent Auto 13.4 % (18.3-44.2); Mean Corpuscular HGB Conc 31.8 g/dl (32-36); Mean Corpuscular Hemoglobin 30.5 pg (26-34); Mean Corpuscular Volume 95.9 fl (80-100); Mean Platelet Volume 11.8 fl (7.4-10.4); Monocytes Absolute Auto 0.7 K/mm3 (0.1-0.6); Monocytes Percent Auto 10.6 % (2.6-8.5); Neutrophils Absolute Auto 5.1 K/mm3 (1.3-6.7); Neutrophils Percent Auto 72.4 % (45.5-73.1); Platelet Count Result 169 k/mm3 (150-375); Red Blood Count 4.19 M/mm3 (4.6-6.20); Red Cell Distribution Width 13.5 % (11.5-14.5)
[2022-12-04 20:27] LABS: Partial Thromboplastin Time 25.5 SECONDS (22.3-36.8); Prothrombin Time 13.4 Seconds (11.1-14.7)
[2022-12-04 20:41] LABS: Large Platelets Present; Platelet Estimate Adequate (Adequate)
[2022-12-04 20:42] LABS: Anisocytosis 3+ (NORMAL); Macrocytosis 3+ (NORMAL)
[2022-12-04 20:43] LABS: Atypical Lymphocytes Present; Schistocytes None Seen (NORMAL)
[2022-12-04 21:02] LABS: Appearance Urine Clear (Clear); Bilirubin Urine Negative (Negative); Blood Urine Negative (Negative); Color Urine Other (Yellow); Glucose Urine UA Negative (Negative); Ketones Urine Negative (Negative); Leukocyte Esterase Ur Negative LEU/UL (Negative); Nitrate Urine Positive (Negative); Protein Urine Negative (Negative); Specific Grav Ur <= 1.005 (1.001-1.035); Urobilinogen Urine 0.2 mg/dL (<2.0)
[2022-12-04 21:03] LABS: Add Urine Microscopic? NO
[2022-12-04] MEDS: SODIUM CHLORIDE 0.9% IV 1,000 ML 999 ML IV CONT (21:25)
[2022-12-04 21:43] LABS: Lactic Acid Reflex 0.6 mmol/L (0.7-2.0)
[2022-12-04 21:45] LABS: CRP < 0.5 mg/dL (<1.0)
[2022-12-04 21:49] LABS: Erythrocyte Sedimentation Rate 27 mm/hr (0-20)
[2022-12-04 21:55] LABS: Troponin I < 0.012 ng/mL (0.000-0.034)
[2022-12-04 22:05] VITALS: BP 136/67; PULSE 69; RESP 11; O2SAT 96
[2022-12-04 22:12] LABS: Alanine Aminotransferase 32 U/L (6-50); Albumin Level 4.4 g/dL (3.5-5.1); Alkaline Phosphatase 127 U/L (38-126); Anion Gap 7 mmol/L (8-16); Aspartate Amino Transferase 35 U/L (17-59); Bilirubin,Total 0.6 mg/dL (0.2-1.3); Blood Urea Nitrogen 30 mg/dL (9-20); Calcium 8.6 mg/dL (8.4-10.2); Carbon Dioxide 29 mmol/L (22-30); Chloride 103 mmol/L (98-107); Estimated Glomerular Filt Rate > 60; Glucose 109 mg/dL (65-110); Potassium 4.5 mmol/L (3.4-5.0); Sodium 139 mmol/L (137-145)
[2022-12-04 22:22] LABS: Procalcitonin 0.1 ng/mL
[2022-12-04 23:27] VITALS: BP 116/83; PULSE 65; RESP 11; O2SAT 96
--- NOTE | 2022-12-05 00:12 | PC.NURSE ---
Patient is now able to tell nursing staff why he was sent to hospital. Patient states he was dizzy earlier.
--- NOTE | 2022-12-05 00:13 | ED.GENADULT ---
HPI - General Adult General Chief complaint: Altered Mental Status Stated complaint: altered mental status Time Seen by Provider: 12/04/22 21:01 History of Present Illness HPI narrative: Patient is 72-year-old gentleman who presents emergency room with chief complaint of urinary tract infection/altered mental status. The patient is a resident of a local [facility] and is normally fairly independent but he is a quadriplegic. Patient today was having some hallucination episodes and was diagnosed with a UTI yesterday. The patient was started on Cefpodoxime yesterday by his [facility] facility doctor. The patient upon arrival to the emergency department able answer all questions appropriately vital signs are all stable and the patient currently has no complaints Related Data Home Medications Medication Instructions Recorded Confirmed Dulcolax (bisacodyl) 10 mg PO DAILY PRN Constipation 12/11/19 08/29/22 Lactobacillus acidophilus 1 tab-cap PO DAILY@1200 12/11/19 08/29/22 Macrobid 100 mg PO BID 12/11/19 08/29/22 acetaminophen 1,000 mg PO Q6H PRN Pain 12/11/19 08/29/22 amlodipine 10 mg PO DAILY@1200 12/11/19 08/29/22 atorvastatin 80 mg tablet 80 mg PO HS 12/11/19 08/29/22 baclofen 5 mg tablet 5 mg PO TID PRN Muscle Spasm 12/11/19 08/29/22 docusate sodium 100 mg capsule 100 mg PO DAILY 12/11/19 08/29/22 (Colace) ferrous sulfate 325 mg (65 mg 325 mg PO EVERY OTHER DAY 12/11/19 08/29/22 iron) tablet folic acid 1 mg PO DAILY@1200 12/11/19 08/29/22 hydralazine 25 mg PO DAILY PRN Hypertension 12/11/19 08/29/22 lidocaine 5 % topical cream 1 applic topical Q8H PRN Pain 12/11/19 08/29/22 melatonin 10 mg tablet 10 mg PO HS PRN Insomnia 12/11/19 08/29/22 pregabalin 100 mg capsule (Lyrica) 100 mg PO BID 12/11/19 08/29/22 guaifenesin 600 mg tablet, 600 mg PO Q12H PRN Allergic 12/12/19 08/29/22 extended release 12 hr (Mucinex) Symptoms hakhypb-kmpkjud-nwxzfjwtqjwip 1 applic topical Q4H PRN Pain 12/12/19 08/29/22 comb#1 11 %-11 % topical cream mirabegron 25 mg tablet,extended 25 mg PO DAILY 12/12/19 08/29/22 release 24 hr polyethylene glycol 3350 17 17 g PO DAILY PRN Constipation 12/12/19 08/29/22 gram/dose oral powder (Miralax) psyllium husk 3.4 gram/5.4 gram 3.4 g PO BID 12/12/19 08/29/22 oral powder (Metamucil) sennosides 8.6 mg-docusate sodium 1 tablet PO BID 12/12/19 08/29/22 50 mg tablet (Senna Plus) simethicone 80 mg chewable tablet 125 mg PO BID PRN Indigestion 12/12/19 08/29/22 (Gas Relief (simethicone)) glycerin-mineral oil 5 ml BYMOUTH TID PRN Constipation 03/09/20 08/29/22 carboxymethylcellulose sodium 0.5 1 drp EACH EYE TID 08/29/22 08/29/22 % eye drops cholecalciferol (vitamin D3) 25 25 mcg PO DAILY 08/29/22 08/29/22 mcg (1,000 unit) capsule diclofenac sodium 1 % topical gel 2 g topical QID 08/29/22 08/29/22 duloxetine 60 mg capsule,delayed 60 mg PO DAILY 08/29/22 08/29/22 release hydralazine 50 mg tablet 50 mg PO DAILY PRN Hypertension 08/29/22 08/29/22 lidocaine 5 % topical patch 2 patch topical DAILY 08/29/22 08/29/22 (Lidoderm) lisinopril 10 mg tablet 10 mg PO DAILY 08/29/22 08/29/22 loratadine 10 mg tablet 10 mg PO DAILY 08/29/22 08/29/22 meloxicam 7.5 mg tablet 7.5 mg PO Q12H PRN Pain 08/29/22 08/29/22 naloxone 4 mg/actuation nasal spray 1 spray intranasal DIRECTED PRN 08/29/22 08/29/22 Opiate Reversal sodium phosphates 19 gram-7 118 ml RECTAL ONCE 08/29/22 08/29/22 gram/118 mL enema (Fleet Enema) triamcinolone acetonide 0.1 % 1 applic topical DAILY 08/29/22 08/29/22 topical cream zinc oxide 17 %-white petrolatum 1 applic topical QSHIFT 08/29/22 08/29/22 57 % topical paste Allergies Allergy/AdvReac Type Severity Reaction Status Date / Time piperacillin Allergy Unknown Unknown Verified 12/03/22 16:22 sulfamethoxazole Allergy Unknown Unknown Verified 12/03/22 16:22 tazobactam Allergy Unknown Unknown Verified 12/03/22 16:22 tizanidine Allergy Unknown Unknown Verified 12/03/22 16:22 trim
[2022-12-05 01:05] VITALS: BP 140/71; PULSE 64; RESP 12; O2SAT 94
[2022-12-05 02:42] VITALS: BP 138/68; PULSE 68; RESP 11; O2SAT 93
[2022-12-05 04:24] VITALS: BP 112/69; PULSE 64; RESP 13; TEMP 36.7; O2SAT 90
== END 2022-12-05 04:27 ==
PROVIDERS: Emergency Provider Emergency Medicine; PCP Internal Medicine
DX: N39.0 Urinary tract infection, site not specified (principal); R53.1 Weakness; I69.998 Other sequelae following unspecified cerebrovascular disease; H53.8 Other visual disturbances; I10 Essential (primary) hypertension; G82.54 Quadriplegia, C5-C7 incomplete; S14.105S Unspecified injury at C5 level of cervical spinal cord, sequela; D64.9 Anemia, unspecified; N31.9 Neuromuscular dysfunction of bladder, unspecified; K21.9 Gastro-esophageal reflux disease without esophagitis; Z86.16 Personal history of COVID-19; Z86.718 Personal history of other venous thrombosis and embolism; Z87.891 Personal history of nicotine dependence; Z79.82 Long term (current) use of aspirin; V29.99XS Rider (driver) (passenger) of other motorcycle injured in unspecified traffic accident, sequela
CPT/HCPCS: 36415; 70450; 71045; 80053; 81003; 83605; 84145; 84484; 85025; 85055; 85610; 85652; 85730; 86140; 87040; 93005; 96360; 99284; J7030

== ENCOUNTER 2022-12-05 07:11 | Inpatient (IN) | payer OTHER, SELFPAY ==
[2022-12-05] VITALS (36 sets, daily range): BP systolic 135–175; BP diastolic 60–84; PULSE 60–97; RESP 13–24; TEMP 36.1–36.4; O2SAT 94–100; BMI 27.6
--- NOTE | 2022-12-05 07:39 | ECG_ITS ---
Measurements Intervals [place] Rate: 71 P: WA: 0 QRS: -45 QRSD: 101 T: 267 QT: 384 QTc: 419 Interpretive Statements UNINTERPRETABLE EKG DUE TO SIGNIFICANT BASELINE ARTIFACT Electronically Signed On 12-05-2022 9:42:44 CDT by Kavon Mercado M.D.
[2022-12-05 08:02] LABS: Base Excess ABG 2.1 mEq/l (+/-2.0); Carboxyhemoglobin 0.7 % THb (0-2.0); Fractional Inspired Oxygen 21 %; HCO3 ABG 28.8 mEq/l (22.0-26.0); Methemoglobin ABG 0.3 %THb (0-1.5); Oxygen Content ABG 16.3 %vol (16.0-22.0); Oxygen Saturation ABG 91.9 % (95.0-100.0); Oxyhemoglobin 89.6 % THb (90.0-100.0); PCO2 ABG 54.3 mmHg (35.0-45.0); PO2 ABG 66.7 mmHg (80.0-100.0); PO2 FiO2 Ratio Arterial Blood 3.18 %; Reduced Hemoglobin 9.4 %THb (0-5.0); Total Hemoglobin 12.9 g/dL (12.0-18.0); pH ABG 7.343 (7.350-7.450)
[2022-12-05 08:04] LABS: Modified Allen's Test Pass; Site Drawn RIGHT RADIAL
[2022-12-05 08:09] LABS: Basophils Percent Auto 0.4 % (0.2-1.2); Eosinophils Absolute Auto 0.2 K/mm3 (0-0.3); Eosinophils Percent Auto 2.1 % (0-4.4); Hematocrit 37.1 % (42.0-52.0); Hemoglobin 11.8 g/dL (14.0-18.0); Immature Granulocyte Absolute 0.02 K/mm3 (0.00-0.031); Immature Granulocyte Percent A 0.3 % (0-0.5); Lymphocytes Absolute Auto 0.69 K/mm3 (0.9-3.2); Lymphocytes Percent Auto 8.7 % (18.3-44.2); Mean Corpuscular HGB Conc 31.8 g/dl (32-36); Mean Corpuscular Hemoglobin 29.8 pg (26-34); Mean Corpuscular Volume 93.7 fl (80-100); Mean Platelet Volume 10.9 fl (7.4-10.4); Monocytes Absolute Auto 0.8 K/mm3 (0.1-0.6); Neutrophils Absolute Auto 6.2 K/mm3 (1.3-6.7); Neutrophils Percent Auto 78.5 % (45.5-73.1); Platelet Count Result 142 k/mm3 (150-375); Red Blood Count 3.96 M/mm3 (4.6-6.20); Red Cell Distribution Width 13.1 % (11.5-14.5); White Blood Count 7.9 K/mm3 (4.5-10.0)
[2022-12-05 08:22] LABS: Alanine Aminotransferase 29 U/L (6-50); Alkaline Phosphatase 116 U/L (38-126); Anion Gap 6 mmol/L (8-16); Aspartate Amino Transferase 32 U/L (17-59); Bilirubin,Total 0.6 mg/dL (0.2-1.3); Blood Urea Nitrogen 22 mg/dL (9-20); Calcium 8.1 mg/dL (8.4-10.2); Carbon Dioxide 29 mmol/L (22-30); Chloride 106 mmol/L (98-107); Estimated CRCL calculation 81 ml/min; Estimated Glomerular Filt Rate > 60; Glucose 108 mg/dL (65-110); Potassium 3.7 mmol/L (3.4-5.0); Sodium 141 mmol/L (137-145)
[2022-12-05 08:23] LABS: Glucose Point of Care 114 mg/dl (65-105)
--- NOTE | 2022-12-05 10:04 | ED.AMS ---
HPI - Altered Mental Status General Chief Complaint: Altered Mental Status Stated Complaint: AMS Time Seen by Provider: 12/05/22 07:14 Source: EMS and RN notes reviewed Mode of arrival: EMS Limitations: altered mental status History of Present Illness HPI narrative: This is a 72 year old male with history of quadriplegia, hypertension, neurogenic bladder , chronic indwelling Martínez catheter who presents from the [facility] for altered mental status. Patient was just discharged from [facility] for evaluation of altered mental status. He was diagnosed with UTI. This morning staff reported that patient was not himself so they sent him back to ER. It is reported that patient is normally alert and oriented x 4. He was also seen in ER 2 days ago for same symptoms. He was given dose of cedinir at that time and discharged. Related Data Home Medications Medication Instructions Recorded Confirmed Dulcolax (bisacodyl) 10 mg PO DAILY PRN Constipation 12/11/19 12/05/22 Lactobacillus acidophilus 1 tab-cap PO DAILY@1200 12/11/19 12/05/22 Macrobid 100 mg PO BID 12/11/19 12/05/22 acetaminophen 1,000 mg PO Q6H PRN Pain 12/11/19 12/05/22 amlodipine 10 mg PO DAILY@1200 12/11/19 12/05/22 atorvastatin 80 mg tablet 80 mg PO HS 12/11/19 12/05/22 baclofen 5 mg tablet 5 mg PO TID PRN Muscle Spasm 12/11/19 12/05/22 docusate sodium 100 mg capsule 100 mg PO DAILY 12/11/19 12/05/22 (Colace) ferrous sulfate 325 mg (65 mg 325 mg PO EVERY OTHER DAY 12/11/19 12/05/22 iron) tablet folic acid 1 mg PO DAILY@1200 12/11/19 12/05/22 hydralazine 25 mg PO DAILY PRN Hypertension 12/11/19 12/05/22 lidocaine 5 % topical cream 1 applic topical Q8H PRN Pain 12/11/19 12/05/22 melatonin 10 mg tablet 10 mg PO HS PRN Insomnia 12/11/19 12/05/22 pregabalin 100 mg capsule (Lyrica) 100 mg PO BID 12/11/19 12/05/22 guaifenesin 600 mg tablet, 600 mg PO Q12H PRN Allergic 12/12/19 12/05/22 extended release 12 hr (Mucinex) Symptoms [id number]-jykrtsv-ndaxtugkemtex 1 applic topical Q4H PRN Pain 12/12/19 12/05/22 comb#1 11 %-11 % topical cream mirabegron 25 mg tablet,extended 25 mg PO DAILY 12/12/19 12/05/22 release 24 hr polyethylene glycol 3350 17 17 g PO DAILY PRN Constipation 12/12/19 12/05/22 gram/dose oral powder (Miralax) psyllium husk 3.4 gram/5.4 gram 3.4 g PO BID 12/12/19 12/05/22 oral powder (Metamucil) sennosides 8.6 mg-docusate sodium 1 tablet PO BID 12/12/19 12/05/22 50 mg tablet (Senna Plus) simethicone 80 mg chewable tablet 125 mg PO BID PRN Indigestion 12/12/19 12/05/22 (Gas Relief (simethicone)) glycerin-mineral oil 5 ml BYMOUTH TID PRN Constipation 03/09/20 12/05/22 carboxymethylcellulose sodium 0.5 1 drp EACH EYE TID 08/29/22 12/05/22 % eye drops cholecalciferol (vitamin D3) 25 25 mcg PO DAILY 08/29/22 12/05/22 mcg (1,000 unit) capsule diclofenac sodium 1 % topical gel 2 g topical QID 08/29/22 12/05/22 duloxetine 60 mg capsule,delayed 60 mg PO DAILY 08/29/22 12/05/22 release hydralazine 50 mg tablet 50 mg PO DAILY PRN Hypertension 08/29/22 12/05/22 lidocaine 5 % topical patch 2 patch topical DAILY 08/29/22 12/05/22 (Lidoderm) lisinopril 10 mg tablet 10 mg PO DAILY 08/29/22 12/05/22 loratadine 10 mg tablet 10 mg PO DAILY 08/29/22 12/05/22 meloxicam 7.5 mg tablet 7.5 mg PO Q12H PRN Pain 08/29/22 12/05/22 naloxone 4 mg/actuation nasal spray 1 spray intranasal DIRECTED PRN 08/29/22 12/05/22 Opiate Reversal sodium phosphates 19 gram-7 118 ml RECTAL ONCE PRN Constipation 08/29/22 12/05/22 gram/118 mL enema (Fleet Enema) triamcinolone acetonide 0.1 % 1 applic topical DAILY 08/29/22 12/05/22 topical cream zinc oxide 17 %-white petrolatum 1 applic topical QSHIFT 08/29/22 12/05/22 57 % topical paste Allergies Allergy/AdvReac Type Severity Reaction Status Date / Time piperacillin Allergy Unknown Unknown Verified 12/05/22 07:23 sulfamethoxazole Allergy Unknown Unknown Verified 12/05/22 07:23 tazobactam Allergy Unknown Unknown Verified
[2022-12-05 17:21] LABS: Glucose Point of Care 105 mg/dl (65-105)
--- NOTE | 2022-12-05 18:00 | PC.NURSE ---
Spoke with Patient's Nurse at [facility], Judi, who states baseline for patient is alert and oriented, transfers with a sit to stand, and is able to drive. GODFREY De Jesus
--- NOTE | 2022-12-05 18:04 | PC.NURSE ---
This patient, Tai Amado, was admitted to 3 [facility] Room 316-[id number] [id number]. Patient/family oriented to hospital policies and general routines including ID bracelet, bed and alarms, visiting hours, pain management, procedures, bathroom and other care routines, personal items, smoking policy, room service/diet, and visiting hours. Information on how to activate the Rapid Response Team has been discussed. Patient/Family are encouraged to report perceived risks to care and to ask questions if they do not understand what they are told or what they should do.
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
[2022-12-05 18:56] LABS: Alveolar/Arterial O2 Gradient 26.3 mmHg; Base Excess ABG 0.7 mEq/l (+/-2.0); Carboxyhemoglobin 0.3 % THb (0-2.0); Fractional Inspired Oxygen 21 %; HCO3 ABG 26.1 mEq/l (22.0-26.0); Methemoglobin ABG 0.2 %THb (0-1.5); Oxygen Content ABG 16.7 %vol (16.0-22.0); Oxygen Saturation ABG 93.7 % (95.0-100.0); Oxyhemoglobin 92.6 % THb (90.0-100.0); PCO2 ABG 44.7 mmHg (35.0-45.0); PO2 ABG 69.9 mmHg (80.0-100.0); PO2 FiO2 Ratio Arterial Blood 3.33 %; Reduced Hemoglobin 6.9 %THb (0-5.0); Total Hemoglobin 12.8 g/dL (12.0-18.0); pH ABG 7.384 (7.350-7.450)
[2022-12-05 18:57] LABS: Device ROOM AIR; Modified Allen's Test Pass; Site Drawn RIGHT RADIAL
[2022-12-05 22:26] LABS: Glucose Point of Care 128 mg/dl (65-105)
[2022-12-06] VITALS (11 sets, daily range): BP systolic 145–158; BP diastolic 60–79; PULSE 68–112; RESP 16–20; TEMP 36.7–36.9; O2SAT 95–97
[2022-12-06] MEDS: ATORVASTATIN 40 MG TABLET 80 MG PO ×2 (01:08→20:30)
[2022-12-06 06:14] LABS: Basophils Percent Auto 0.3 % (0.2-1.2); Eosinophils Absolute Auto 0.1 K/mm3 (0-0.3); Eosinophils Percent Auto 1.4 % (0-4.4); Hematocrit 37.3 % (42.0-52.0); Hemoglobin 12.2 g/dL (14.0-18.0); Immature Granulocyte Absolute 0.02 K/mm3 (0.00-0.031); Immature Granulocyte Percent A 0.3 % (0-0.5); Lymphocytes Absolute Auto 0.85 K/mm3 (0.9-3.2); Lymphocytes Percent Auto 10.7 % (18.3-44.2); Mean Corpuscular HGB Conc 32.7 g/dl (32-36); Mean Corpuscular Volume 91.9 fl (80-100); Mean Platelet Volume 10.4 fl (7.4-10.4); Monocytes Absolute Auto 0.8 K/mm3 (0.1-0.6); Monocytes Percent Auto 10.4 % (2.6-8.5); Neutrophils Absolute Auto 6.2 K/mm3 (1.3-6.7); Neutrophils Percent Auto 76.9 % (45.5-73.1); Platelet Count Result 157 k/mm3 (150-375); Red Blood Count 4.06 M/mm3 (4.6-6.20); Red Cell Distribution Width 13.2 % (11.5-14.5)
[2022-12-06 06:26] LABS: Ammonia < 9 umol/L (9-30)
[2022-12-06 06:29] LABS: Alanine Aminotransferase 30 U/L (6-50); Albumin Level 3.9 g/dL (3.5-5.1); Alkaline Phosphatase 129 U/L (38-126); Anion Gap 4 mmol/L (8-16); Aspartate Amino Transferase 35 U/L (17-59); Bilirubin,Total 0.7 mg/dL (0.2-1.3); Blood Urea Nitrogen 21 mg/dL (9-20); Calcium 8.2 mg/dL (8.4-10.2); Carbon Dioxide 30 mmol/L (22-30); Chloride 104 mmol/L (98-107); Estimated CRCL calculation 72 ml/min; Estimated Glomerular Filt Rate > 60; Glucose 99 mg/dL (65-110); Potassium 3.9 mmol/L (3.4-5.0); Sodium 138 mmol/L (137-145)
[2022-12-06] MEDS: ENOXAPARIN 40 MG/0.4 ML SYRINGE SUB-Q (08:52)
[2022-12-06] MEDS: LIDOCAINE 5% PATCH 2 PATCH TOPICAL (08:52)
[2022-12-06] MEDS: ARTIFICIAL TEARS OPHTH SOLN 15 ML BOTTLE 1 DROP EACH EYE ×3 (08:53→17:29)
[2022-12-06] MEDS: amLODIPine BESYLATE 5 MG TABLET 10 MG BY MOUTH (08:53)
[2022-12-06] MEDS: PSYLLIUM POWDER PACKET 1 PACKET PO ×2 (08:53→17:29)
[2022-12-06] MEDS: MIRABEGRON 25 MG ER TABLET PO (08:53)
[2022-12-06] MEDS: ZINC OXIDE 20% OINT 30 GM TUBE 1 APPLIC TOPICAL (08:54)
[2022-12-06] MEDS: TRIAMCINOLONE ACET 0.1% CREAM 15 GM TUBE 1 APPLIC TOPICAL (08:55)
[2022-12-06] MEDS: lisinopriL 10 MG TABLET PO (08:55)
[2022-12-06] MEDS: ASPIRIN 81 MG ENTERIC TABLET PO (08:55)
[2022-12-06] MEDS: LORATADINE 10 MG TABLET PO (08:56)
[2022-12-06] MEDS: FERROUS SULFATE 324 MG TABLET PO (08:56)
[2022-12-06] MEDS: CHOLECALCIFEROL 1,000 UNITS TABLET 1000 UNITS PO (08:56)
[2022-12-06] MEDS: NITROFURANTOIN MONOHYD MACROCR 100 MG CAP PO (08:56)
[2022-12-06] MEDS: DULoxetine HCL 60 MG CAPSULE.DR PO (08:56)
[2022-12-06] MEDS: MELOXICAM 7.5 MG TABLET PO (08:57)
--- NOTE | 2022-12-06 11:23 | PM.IMPN ---
Progress Note: A&P Assessment and Plan (1) Urinary tract infection due to Pseudomonas aeruginosa: Code(s): N39.0 - Urinary tract infection, site not specified; B96.5 - Pseudomonas (aeruginosa) (mallei) (pseudomallei) as the cause of diseases classified elsewhere Status: Acute Assessment and Plan: Pseudomonas found in urine culture, no oral agents available, will need to place midline and initiate cefepime 2g q8h for 7 days (2) Confusion: Code(s): R41.0 - Disorientation, unspecified Status: Acute Assessment and Plan: Resolved, likely 2/2 UTI, check TSH, B12 (3) Essential hypertension: Code(s): I10 - Essential (primary) hypertension Status: Acute Assessment and Plan: Blood pressures reviewed 12/06 Continue home antihypertensives (4) Chronic pain syndrome: Code(s): G89.4 - Chronic pain syndrome Status: Acute Assessment and Plan: Continue home medications (5) Diarrhea: Code(s): R19.7 - Diarrhea, unspecified Status: Acute Assessment and Plan: Resolved Plan DVT prophylaxis with Lovenox GI prophylaxis not indicated Code status full code Subjective Date/time seen: 12/06/22 11:23 Interval history: 72-year-old male with history of spinal cord injury and resultant quadriplegia with neurogenic bladder and indwelling suprapubic catheter is presenting from his nursing facility for altered mental status is currently being treated for possible UTI. No overnight events noted. No chest pain or shortness of breath. No nausea, vomiting or diarrhea. No fevers or chills. Patient states he feels a little confused once in a while but thinks he feels better than when he came in. Review of Systems Review of Systems: 12 point review of systems was assessed and was negative except as noted in the HPI Exam Narrative: General: No acute distress, appears to be alert and oriented per baseline HEENT: Atraumatic, normocephalic, mucous membranes moist CV: Regular rate and rhythm, S1, S2 Lungs: Clear to auscultation bilaterally, no rales or crackles noted, no wheezes, good air entry Abdomen: Soft, nontender, nondistended Extremities: Normal to inspection Skin: No rashes noted, no lesions or wounds seen Psych: Euthymic, normal affect Objective Data Vital Signs Vital Signs: Vital Signs - 24 hr 12/05/22 11:31 12/05/22 11:32 12/05/22 11:47 Temperature Pulse Rate 76 64 97 Respiratory Rate 13 17 18 Blood Pressure 173/78 H 152/68 H Pulse Oximetry 99 99 Oxygen Delivery 12/05/22 11:45 12/05/22 11:47 12/05/22 12:01 Temperature Pulse Rate 87 90 75 Respiratory Rate 24 H 20 14 Blood Pressure 152/68 H 146/68 H Pulse Oximetry 99 98 Oxygen Delivery 12/05/22 12:16 12/05/22 12:30 12/05/22 14:00 Temperature 97 F L 97.2 F L Pulse Rate 85 77 70 Respiratory Rate 15 16 16 Blood Pressure 145/76 H 155/60 H 150/63 H Pulse Oximetry 100 96 96 Oxygen Delivery 12/05/22 16:00 12/05/22 22:00 12/05/22 20:00 Temperature 97.2 F L Pulse Rate 83 94 96 Respiratory Rate 20 Blood Pressure 175/79 H Pulse Oximetry 97 Oxygen Delivery 12/05/22 20:00 12/06/22 00:00 12/06/22 04:00 Temperature Pulse Rate 95 96 Respiratory Rate Blood Pressure Pulse Oximetry Oxygen Delivery Room Air 12/06/22 06:00 12/06/22 09:31 12/06/22 08:00 Temperature 98.1 F Pulse Rate 108 H 108 H Respiratory Rate 20 Blood Pressure 145/79 H Pulse Oximetry 95 95 Oxygen Delivery Room Air 12/06/22 08:00 Temperature Pulse Rate 108 H Respiratory Rate 20 Blood Pressure Pulse Oximetry 95 Oxygen Delivery Room Air Intake/Output Intake/Output: Intake & Output 12/03/22 12/04/22 12/05/22 12/06/22 23:59 23:59 23:59 23:59 Intake Total 290 250 Output Total 800 Balance -510 250 Meds/Results Medications: Active Medications Generic Name Dos
[2022-12-06] MEDS: FOLIC ACID 1 MG TABLET PO (11:52)
[2022-12-06] MEDS: PREGABALIN (*CRX) 50 MG CAPSULE 100 MG PO ×2 (11:52→17:36)
[2022-12-06] MEDS: ACIDOPHILUS/BULGARICUS CHEWABLE TABLET 1 TABLET BY MOUTH (11:53)
[2022-12-06] MEDS: CEFEPIME 2 GM/NS 50 ML 2 GM/50 ML BAG IVPB ×2 (17:29→20:40)
[2022-12-06] MEDS: ONDANSETRON INJ 4 MG/2 ML VIAL IV PUSH (17:36)
--- NOTE | 2022-12-06 17:55 | PC.NURSE ---
Per Dr. Beauchamp ok to place midline 12/07/22
--- NOTE | 2022-12-06 18:18 | PC.NURSE ---
Patient having multiple anxious complaints regarding care and staff, becoming more uncooperative and anxious. Patient calling multiple times in the last few hors accusing staff of not feeding him, ignoring him, not giving him medications, requesting to be discharged. Patient becoming more agitated with staff, Providers aware, will continue to monitor Patient. GODFREY De Jesus
[2022-12-06 22:53] LABS: Glucose Point of Care 110 mg/dl (65-105)
--- NOTE | 2022-12-06 23:43 | PCRCNOTE ---
Pt will not allow apnea link at this time, he remains in the chair and complains of back pain, is also confused at times
[2022-12-06] MEDS: ACETAMINOPHEN 500 MG TABLET 1000 MG BY MOUTH (23:50)
[2022-12-07] VITALS (9 sets, daily range): BP systolic 133–160; BP diastolic 68–83; PULSE 84–92; RESP 16; TEMP 36–36.8; O2SAT 96–100
[2022-12-07] MEDS: CEFEPIME 2 GM/NS 50 ML 2 GM/50 ML BAG IVPB ×2 (06:09→16:49)
[2022-12-07] MEDS: ACETAMINOPHEN 500 MG TABLET 1000 MG BY MOUTH (06:31)
[2022-12-07] MEDS: ONDANSETRON INJ 4 MG/2 ML VIAL IV PUSH (06:32)
[2022-12-07 06:39] LABS: Basophils Percent Auto 0.5 % (0.2-1.2); Eosinophils Absolute Auto 0.1 K/mm3 (0-0.3); Eosinophils Percent Auto 1.8 % (0-4.4); Hematocrit 39.9 % (42.0-52.0); Immature Granulocyte Absolute 0.02 K/mm3 (0.00-0.031); Immature Granulocyte Percent A 0.3 % (0-0.5); Lymphocytes Absolute Auto 1.17 K/mm3 (0.9-3.2); Lymphocytes Percent Auto 15.1 % (18.3-44.2); Mean Corpuscular HGB Conc 32.6 g/dl (32-36); Mean Corpuscular Hemoglobin 30.4 pg (26-34); Mean Corpuscular Volume 93.2 fl (80-100); Mean Platelet Volume 10.9 fl (7.4-10.4); Monocytes Percent Auto 12.7 % (2.6-8.5); Neutrophils Absolute Auto 5.4 K/mm3 (1.3-6.7); Neutrophils Percent Auto 69.6 % (45.5-73.1); Platelet Count Result 176 k/mm3 (150-375); Red Blood Count 4.28 M/mm3 (4.6-6.20); Red Cell Distribution Width 13.3 % (11.5-14.5); White Blood Count 7.7 K/mm3 (4.5-10.0)
[2022-12-07 06:55] LABS: Alanine Aminotransferase 33 U/L (6-50); Albumin Level 4.1 g/dL (3.5-5.1); Alkaline Phosphatase 124 U/L (38-126); Anion Gap 6 mmol/L (8-16); Aspartate Amino Transferase 42 U/L (17-59); Bilirubin,Total 0.9 mg/dL (0.2-1.3); Blood Urea Nitrogen 19 mg/dL (9-20); Calcium 8.4 mg/dL (8.4-10.2); Carbon Dioxide 30 mmol/L (22-30); Chloride 101 mmol/L (98-107); Estimated CRCL calculation 58 ml/min; Estimated Glomerular Filt Rate > 60; Glucose 98 mg/dL (65-110); Potassium 3.9 mmol/L (3.4-5.0); Sodium 137 mmol/L (137-145)
[2022-12-07 07:41] LABS: Glucose Point of Care 102 mg/dl (65-105)
[2022-12-07 08:02] LABS: Folic Acid > 20.0 ng/mL (2.76->20)
[2022-12-07] MEDS: ENOXAPARIN 40 MG/0.4 ML SYRINGE SUB-Q (08:58)
[2022-12-07] MEDS: PSYLLIUM POWDER PACKET 1 PACKET PO (08:58)
[2022-12-07] MEDS: ZINC OXIDE 20% OINT 30 GM TUBE 1 APPLIC TOPICAL (08:58)
[2022-12-07] MEDS: ARTIFICIAL TEARS OPHTH SOLN 15 ML BOTTLE 1 DROP EACH EYE ×3 (08:59→16:49)
[2022-12-07] MEDS: TRIAMCINOLONE ACET 0.1% CREAM 15 GM TUBE 1 APPLIC TOPICAL (08:59)
[2022-12-07] MEDS: guaiFENesin 12 HR 600 MG TABCR PO (08:59)
[2022-12-07] MEDS: DICLOFENAC SODIUM 1% 100 GM GEL (*BKC) 1 APPLIC TOPICAL (08:59)
[2022-12-07] MEDS: DULoxetine HCL 60 MG CAPSULE.DR PO (09:00)
[2022-12-07] MEDS: CHOLECALCIFEROL 1,000 UNITS TABLET 1000 UNITS PO (09:00)
[2022-12-07] MEDS: ASPIRIN 81 MG ENTERIC TABLET PO (09:00)
[2022-12-07] MEDS: lisinopriL 10 MG TABLET PO (09:01)
[2022-12-07] MEDS: MIRABEGRON 25 MG ER TABLET PO (09:01)
[2022-12-07] MEDS: LORATADINE 10 MG TABLET PO (09:01)
[2022-12-07] MEDS: LIDOCAINE 5% PATCH 2 PATCH TOPICAL (09:20)
[2022-12-07] MEDS: PREGABALIN (*CRX) 50 MG CAPSULE 100 MG PO ×2 (09:20→16:51)
--- NOTE | 2022-12-07 10:00 | PM.IMPN ---
Progress Note: A&P Assessment and Plan (1) Urinary tract infection due to Pseudomonas aeruginosa: Code(s): N39.0 - Urinary tract infection, site not specified; B96.5 - Pseudomonas (aeruginosa) (mallei) (pseudomallei) as the cause of diseases classified elsewhere Status: Acute Assessment and Plan: Pseudomonas found in urine culture, no oral agents available, will need to place midline and initiate cefepime 2g q8h for 7 days, end date 12/12 (2) Confusion: Code(s): R41.0 - Disorientation, unspecified Status: Acute Assessment and Plan: Resolved, likely 2/2 UTI, check TSH, S78--nea wnl (3) Essential hypertension: Code(s): I10 - Essential (primary) hypertension Status: Acute Assessment and Plan: Blood pressures reviewed 12/07 Continue home antihypertensives (4) Chronic pain syndrome: Code(s): G89.4 - Chronic pain syndrome Status: Acute Assessment and Plan: Continue home medications (5) Diarrhea: Code(s): R19.7 - Diarrhea, unspecified Status: Acute Assessment and Plan: Resolved Plan DVT prophylaxis with Lovenox GI prophylaxis not indicated Code status full code Subjective Date/time seen: 12/07/22 10:00 Interval history: 72-year-old male with history of spinal cord injury and resultant quadriplegia with neurogenic bladder and indwelling suprapubic catheter is presenting from his nursing facility for altered mental status is currently being treated for possible UTI. No overnight events noted. No chest pain or shortness of breath. No nausea, vomiting or diarrhea. No fevers or chills. Patient feeling much better today, getting midline placed. Review of Systems Review of Systems: 12 point review of systems was assessed and was negative except as noted in the HPI Exam Narrative: General: No acute distress, appears to be alert and oriented per baseline HEENT: Atraumatic, normocephalic, mucous membranes moist CV: Regular rate and rhythm, S1, S2 Lungs: Clear to auscultation bilaterally, no rales or crackles noted, no wheezes, good air entry Abdomen: Soft, nontender, nondistended Extremities: Normal to inspection Skin: No rashes noted, no lesions or wounds seen Psych: Euthymic, normal affect Objective Data Vital Signs Vital Signs: Vital Signs - 24 hr 12/06/22 14:00 12/06/22 12:00 12/06/22 16:00 Temperature 98.3 F Pulse Rate 96 68 112 H Respiratory Rate 18 Blood Pressure 148/75 H Pulse Oximetry 96 Oxygen Delivery 12/06/22 21:38 12/06/22 23:45 12/06/22 20:00 Temperature 98.5 F Pulse Rate 100 98 Respiratory Rate 16 Blood Pressure 158/60 H Pulse Oximetry 97 96 Oxygen Delivery Room Air 12/06/22 20:00 12/07/22 00:00 12/07/22 04:00 Temperature Pulse Rate 100 90 85 Respiratory Rate 16 Blood Pressure Pulse Oximetry 96 Oxygen Delivery Room Air 12/07/22 06:00 Temperature 97.5 F L Pulse Rate 84 Respiratory Rate 16 Blood Pressure 160/83 H Pulse Oximetry 96 Oxygen Delivery Intake/Output Intake/Output: Intake & Output 12/04/22 12/05/22 12/06/22 12/07/22 23:59 23:59 23:59 23:59 Intake Total 290 830 350 Output Total [address] [facility] -013 -106 -3241 Meds/Results Medications: Active Medications Generic Name Dose Route Start Last Admin Trade Name Freq PRN Reason Stop Dose Admin Acetaminophen 1,000 mg 12/05/22 23:25 12/07/22 06:31 Acetaminophen 500 Mg Tablet BY MOUTH 1,000 mg Q6H PRN Administration Pain Rated 1-3 Amlodipine Besylate 10 mg 12/06/22 12:00 12/06/22 08:53 Amlodipine Besylate 5 Mg Tablet BY MOUTH 10 mg DAILY@1200 NASRIN Administration Artificial Tears 1 drop 12/06/22 09:00 12/07/22 08:59 Artificial Tears Ophth Soln 15 Ml Bottle EACH EYE 1 drop TID NASRIN Administration Aspirin 81 mg 12/06/22 09:00 12/07/22 09:00 Aspirin 81 Mg Enteric Tablet PO
[2022-12-07] MEDS: LIDOCAINE HCL 1% LOCAL INJ 2 ML AMPUL 5 ML INFILTRATE (11:40)
[2022-12-07 11:49] LABS: Glucose Point of Care 121 mg/dl (65-105)
[2022-12-07] MEDS: SIMETHICONE 125 MG CHEW TAB PO (14:02)
[2022-12-07] MEDS: amLODIPine BESYLATE 5 MG TABLET 10 MG BY MOUTH (14:02)
[2022-12-07] MEDS: SALINE LOCK FLUSH 10 ML IV PUSH ×2 (14:03→22:12)
[2022-12-07] MEDS: FOLIC ACID 1 MG TABLET PO (14:03)
[2022-12-07 17:46] LABS: Glucose Point of Care 105 mg/dl (65-105)
[2022-12-07 21:12] LABS: Glucose Point of Care 115 mg/dl (65-105)
[2022-12-07] MEDS: MELATONIN 5 MG TABLET 10 MG PO (22:09)
[2022-12-07] MEDS: ATORVASTATIN 40 MG TABLET 80 MG PO (22:10)
--- NOTE | 2022-12-07 23:33 | PCRCNOTE ---
Apnea Link. Pt strongly refuses Apnea Link. Patient states that he does not want to participate.
[2022-12-08] VITALS: PULSE 79
[2022-12-08 04:00] VITALS: PULSE 74
[2022-12-08 06:00] VITALS: BP 145/78; PULSE 84; RESP 16; TEMP 36.3; O2SAT 100
[2022-12-08] MEDS: SALINE LOCK FLUSH 10 ML IV PUSH (06:02)
[2022-12-08] MEDS: CEFEPIME 2 GM/NS 50 ML 2 GM/50 ML BAG IVPB (06:02)
[2022-12-08 06:23] LABS: Basophils Percent Auto 0.6 % (0.2-1.2); Eosinophils Absolute Auto 0.2 K/mm3 (0-0.3); Eosinophils Percent Auto 2.6 % (0-4.4); Hematocrit 34.8 % (42.0-52.0); Hemoglobin 11.4 g/dL (14.0-18.0); Immature Granulocyte Absolute 0.02 K/mm3 (0.00-0.031); Immature Granulocyte Percent A 0.3 % (0-0.5); Lymphocytes Absolute Auto 0.96 K/mm3 (0.9-3.2); Lymphocytes Percent Auto 13.7 % (18.3-44.2); Mean Corpuscular HGB Conc 32.8 g/dl (32-36); Mean Corpuscular Hemoglobin 31.1 pg (26-34); Mean Corpuscular Volume 94.8 fl (80-100); Monocytes Absolute Auto 0.8 K/mm3 (0.1-0.6); Neutrophils Percent Auto 71.8 % (45.5-73.1); Platelet Count Result 142 k/mm3 (150-375); Red Blood Count 3.67 M/mm3 (4.6-6.20); Red Cell Distribution Width 13.4 % (11.5-14.5)
[2022-12-08 06:37] LABS: Alanine Aminotransferase 45 U/L (6-50); Albumin Level 3.4 g/dL (3.5-5.1); Alkaline Phosphatase 95 U/L (38-126); Anion Gap 2 mmol/L (8-16); Aspartate Amino Transferase 60 U/L (17-59); Bilirubin,Total 0.7 mg/dL (0.2-1.3); Blood Urea Nitrogen 27 mg/dL (9-20); Calcium 7.9 mg/dL (8.4-10.2); Carbon Dioxide 32 mmol/L (22-30); Chloride 103 mmol/L (98-107); Estimated CRCL calculation 53 ml/min; Estimated Glomerular Filt Rate > 60; Glucose 96 mg/dL (65-110); Potassium 3.5 mmol/L (3.4-5.0); Sodium 137 mmol/L (137-145)
--- NOTE | 2022-12-08 07:32 | P.CDI_ITS ---
CDI Query Clarification Request Documented chronic indwelling urinary catheter. Urine culture from 12/03/22 grew > 100,000 pseudomonas aeruginosa. Patient started on Cefepime 2 GM Q 12 hours. Clarification request - UTI has been documented, chronic indwelling mercado catheter documented. Please clarify if UTI is: * due to/associated with chronic indwelling mercado catheter * not due to/associated with chronic indwelling mercado catheter * unable to determine
[2022-12-08 07:47] LABS: Glucose Point of Care 103 mg/dl (65-105)
[2022-12-08 08:00] VITALS: PULSE 77
[2022-12-08] MEDS: FERROUS SULFATE 324 MG TABLET PO (08:54)
[2022-12-08] MEDS: ASPIRIN 81 MG ENTERIC TABLET PO (08:54)
[2022-12-08] MEDS: lisinopriL 10 MG TABLET PO (08:55)
[2022-12-08] MEDS: DULoxetine HCL 60 MG CAPSULE.DR PO (08:55)
[2022-12-08] MEDS: MIRABEGRON 25 MG ER TABLET PO (08:55)
[2022-12-08] MEDS: ARTIFICIAL TEARS OPHTH SOLN 15 ML BOTTLE 1 DROP EACH EYE (08:55)
[2022-12-08] MEDS: ENOXAPARIN 40 MG/0.4 ML SYRINGE SUB-Q (08:55)
[2022-12-08] MEDS: LORATADINE 10 MG TABLET PO (08:55)
[2022-12-08] MEDS: PSYLLIUM POWDER PACKET 1 PACKET PO (08:55)
[2022-12-08] MEDS: guaiFENesin 12 HR 600 MG TABCR PO (08:55)
[2022-12-08] MEDS: PREGABALIN (*CRX) 50 MG CAPSULE 100 MG PO (08:58)
[2022-12-08] MEDS: CHOLECALCIFEROL 1,000 UNITS TABLET 1000 UNITS PO (08:59)
[2022-12-08] MEDS: TRIAMCINOLONE ACET 0.1% CREAM 15 GM TUBE 1 APPLIC TOPICAL (09:27)
[2022-12-08] MEDS: ZINC OXIDE 20% OINT 30 GM TUBE 1 APPLIC TOPICAL (09:27)
[2022-12-08 11:48] LABS: Glucose Point of Care 109 mg/dl (65-105)
--- NOTE | 2022-12-08 11:50 | PM.DS ---
DS: Admitting Diagnosis Discharge Date 12/08/22 Admitting Diagnosis ams DS: Discharge Diagnosis Discharge Diagnosis (1) Urinary tract infection due to Pseudomonas aeruginosa: Code(s): N39.0 - Urinary tract infection, site not specified; B96.5 - Pseudomonas (aeruginosa) (mallei) (pseudomallei) as the cause of diseases classified elsewhere Status: Acute Assessment and Plan: Pseudomonas found in urine culture, no oral agents available, will need to place midline and initiate cefepime 2g q8h for 7 days, end date 12/12 (2) Confusion: Code(s): R41.0 - Disorientation, unspecified Status: Acute Assessment and Plan: Resolved, likely 2/2 UTI, check TSH, I65--fuc wnl (3) Essential hypertension: Code(s): I10 - Essential (primary) hypertension Status: Acute Assessment and Plan: Blood pressures reviewed 12/07 Continue home antihypertensives (4) Chronic pain syndrome: Code(s): G89.4 - Chronic pain syndrome Status: Acute Assessment and Plan: Continue home medications (5) Diarrhea: Code(s): R19.7 - Diarrhea, unspecified Status: Acute Assessment and Plan: Resolved Plan DVT prophylaxis with Lovenox GI prophylaxis not indicated Code status full code DS: Summary Hospital Course Hospital Course: 72-year-old male with history of spinal cord injury and resultant quadriplegia with neurogenic bladder and indwelling suprapubic catheter is presenting from his nursing facility for altered mental status is currently being treated for possible UTI. Pseudomonas found in urine culture, no oral agents available, will need to place midline and initiate cefepime 2g q8h for 7 days, end date 12/12 Urology was consulted to replace catheter. See chart and med rec for details. All symptoms resolved. Time Spent with Patient Time attestation: Total time spent providing and/or coordinating discharge services: Exam Narrative: General: No acute distress, appears to be alert and oriented per baseline HEENT: Atraumatic, normocephalic, mucous membranes moist CV: Regular rate and rhythm, S1, S2 Lungs: Clear to auscultation bilaterally, no rales or crackles noted, no wheezes, good air entry Abdomen: Soft, nontender, nondistended Extremities: Normal to inspection Skin: No rashes noted, no lesions or wounds seen Psych: Euthymic, normal affect DS: Data Data Completed and Pending Labs on day of discharge: Labs from last 24 hours 12/08/22 12/08/22 12/08/22 11:21 07:41 06:12 WBC 7.0 RBC 3.67 L Hgb 11.4 L Hct 34.8 L MCV 94.8 MCH 31.1 MCHC 32.8 RDW 13.4 Plt Count 142 L MPV 11.0 H Immature Gran % (Auto) 0.3 Neut % (Auto) 71.8 Lymph % (Auto) 13.7 L [place] % (Auto) 11.0 H Eos % (Auto) 2.6 Baso % (Auto) 0.6 Lymph # (Auto) 0.96 [place] # (Auto) 0.8 H Eos # (Auto) 0.2 Baso # (Auto) 0.0 Abs Immat Gran (auto) 0.02 Absolute Neuts (auto) 5.0 Absolute Nucleated RBC 0.0 Nucleated RBC % 0.0 Sodium 137 Potassium 3.5 Chloride 103 Carbon Dioxide 32 H Anion Gap 2 L BUN 27 H Creatinine 1.10 Estim Creat Clear Calc 53 Estimated GFR > 60 Glucose 96 POC Capillary Glucose 109 H 103 Calcium 7.9 L Total Bilirubin 0.7 AST 60 H ALT 45 Alkaline Phosphatase 95 Total Protein 6.0 L Albumin 3.4 L 12/07/22 12/07/22 20:17 16:30 WBC RBC Hgb Hct MCV MCH MCHC RDW Plt Count MPV Immature Gran % (Auto) Neut % (Auto) Lymph % (Auto) [place] % (Auto) Eos % (Auto) Baso % (Auto) Lymph # (Auto) [place] # (Auto) Eos # (Auto) Baso # (Auto) Abs Immat Gran (auto) Absolute Neuts (auto) Absolute Nucleated RBC Nucleated RBC % Sodium Potassium Chloride Carbon Dioxide Anion Gap BUN Creatinine Estim Creat Clear Calc Estimated GFR Glucose P
[2022-12-08] MEDS: FOLIC ACID 1 MG TABLET PO (11:54)
[2022-12-08] MEDS: amLODIPine BESYLATE 5 MG TABLET 10 MG BY MOUTH (11:54)
[2022-12-08] MEDS: ACIDOPHILUS/BULGARICUS CHEWABLE TABLET 1 TABLET BY MOUTH (11:54)
[2022-12-08 12:00] VITALS: PULSE 71
[2022-12-08 12:38] LABS: EDCOVIDSCREEN Positive (Negative)
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
[2022-12-08 13:33] VITALS: BP 107/52; PULSE 84; RESP 16; TEMP 36.2; O2SAT 99
[2022-12-08 14:07] LABS: SARS-CoV-2 RNA PCR Negative (Negative)
== END 2022-12-08 15:20 | DRG 689 ==
LOC: ANHED 07:26 → ANH3MEDSUR 12:50
PROVIDERS: Physician Assistant; Admitting Provider Chiropractor; Emergency Provider General Practice; PCP Internal Medicine; Visit Provider Student in an Organized Health Care Education/Training Program
DX: G82.54 Quadriplegia, C5-C7 incomplete; N39.0 Urinary tract infection, site not specified; B96.5 Pseudomonas (aeruginosa) (mallei) (pseudomallei) as the cause of diseases classified elsewhere; D64.9 Anemia, unspecified; G89.4 Chronic pain syndrome; H53.9 Unspecified visual disturbance; I10 Essential (primary) hypertension; I69.398 Other sequelae of cerebral infarction; K21.9 Gastro-esophageal reflux disease without esophagitis; M54.9 Dorsalgia, unspecified; R33.9 Retention of urine, unspecified; N31.9 Neuromuscular dysfunction of bladder, unspecified; R19.7 Diarrhea, unspecified; R06.89 Other abnormalities of breathing; S14.105S Unspecified injury at C5 level of cervical spinal cord, sequela; V29.99XS Rider (driver) (passenger) of other motorcycle injured in unspecified traffic accident, sequela; Z20.822 Contact with and (suspected) exposure to COVID-19; Z90.49 Acquired absence of other specified parts of digestive tract; Z86.16 Personal history of COVID-19; Z86.718 Personal history of other venous thrombosis and embolism
CPT/HCPCS: 36415; 36569; 36600; 70450; 71045; 80053; 81001; 81003; 82140; 82375; 82607; 82746; 82805; 82948; 83050; 83605; 83735; 84145; 84443; 84484; 85025; 85055; 85610; 85652; 85730; 86140; 87040; 87077; 87086; 87186; 87426; 87635; 93005; 96360; 96367; 96372; 96375; 99283; 99284; 99285; A9270; C1751; C9803; G0378; J0692; J0696; J1650; J2405; J7030

== ENCOUNTER 2023-02-16 19:31 | Emergency (ER) | payer OTHER, SELFPAY ==
[2023-02-16 19:29] VITALS: BP 142/68; PULSE 76; RESP 15; TEMP 36.5; O2SAT 99
--- NOTE | 2023-02-16 19:54 | ED.ABDPAIN ---
HPI - Abdominal Pain General Chief Complaint: Abdominal Pain <Carlee Deluna PA-C - Last Filed: 02/17/23 02:31> Stated Complaint: ABDOMINAL PAIN/? UTI <Carlee Deluna PA-C - Last Filed: 02/17/23 02:31> Time Seen by Provider: 02/16/23 19:34 <Carlee Deluna PA-C - Last Filed: 02/17/23 02:31> History of Present Illness HPI narrative: 72-year-old male with a history of spinal cord injury, quadriplegia, neurogenic bladder with indwelling suprapubic catheter reports to the emergency department via EMS from [facility] for concern for UTI. Patient states he has been struggling with frequent UTIs for a long time. States within the past month, he has been diagnosed by his physician at the [facility], [place] with a UTI and again a week ago at [facility], however states he was never started on any antibiotics. He is reporting suprapubic abdominal pain and burning at the tip of his penis for greater than a month. He denies fever, nausea or vomiting, chest pain or shortness of breath, new onset back pain. Pt does have a PICC line in place. He states he does not have a current urologist. He is to follow with a urologist at [facility], however is unsure of the name and has not seen him in quite some time. <Carlee Deluna PA-C - Last Filed: 02/17/23 02:31> Related Data Home Medications: Home Medications Medication Instructions Recorded Confirmed Dulcolax (bisacodyl) 10 mg PO DAILY PRN Constipation 12/11/19 12/05/22 Lactobacillus acidophilus 1 tab-cap PO DAILY@1200 12/11/19 12/05/22 acetaminophen 1,000 mg PO Q6H PRN Pain 12/11/19 12/05/22 amlodipine 10 mg PO DAILY@1200 12/11/19 12/05/22 atorvastatin 80 mg tablet 80 mg PO HS 12/11/19 12/05/22 baclofen 5 mg tablet 5 mg PO TID PRN Muscle Spasm 12/11/19 12/05/22 docusate sodium 100 mg capsule 100 mg PO DAILY 12/11/19 12/05/22 (Colace) ferrous sulfate 325 mg (65 mg 325 mg PO EVERY OTHER DAY 12/11/19 12/05/22 iron) tablet folic acid 1 mg PO DAILY@1200 12/11/19 12/05/22 hydralazine 25 mg PO DAILY PRN Hypertension 12/11/19 12/05/22 lidocaine 5 % topical cream 1 applic topical Q8H PRN Pain 12/11/19 12/05/22 melatonin 10 mg tablet 10 mg PO HS PRN Insomnia 12/11/19 12/05/22 pregabalin 100 mg capsule (Lyrica) 100 mg PO BID 12/11/19 12/05/22 guaifenesin 600 mg tablet, 600 mg PO Q12H PRN Allergic 12/12/19 12/05/22 extended release 12 hr (Mucinex) Symptoms [id number] 1 applic topical Q4H PRN Pain 12/12/19 12/05/22 comb#1 11 %-11 % topical cream mirabegron 25 mg tablet,extended 25 mg PO DAILY 12/12/19 12/05/22 release 24 hr polyethylene glycol 3350 17 17 g PO DAILY PRN Constipation 12/12/19 12/05/22 gram/dose oral powder (Miralax) psyllium husk 3.4 gram/5.4 gram 3.4 g PO BID 12/12/19 12/05/22 oral powder (Metamucil) sennosides 8.6 mg-docusate sodium 1 tablet PO BID 12/12/19 12/05/22 50 mg tablet (Senna Plus) simethicone 80 mg chewable tablet 125 mg PO BID PRN Indigestion 12/12/19 12/05/22 (Gas Relief (simethicone)) glycerin-mineral oil 5 ml BYMOUTH TID PRN Constipation 03/09/20 12/05/22 carboxymethylcellulose sodium 0.5 1 drp EACH EYE TID 08/29/22 12/05/22 % eye drops cholecalciferol (vitamin D3) 25 25 mcg PO DAILY 08/29/22 12/05/22 mcg (1,000 unit) capsule diclofenac sodium 1 % topical gel 2 g topical QID 08/29/22 12/05/22 duloxetine 60 mg capsule,delayed 60 mg PO DAILY 08/29/22 12/05/22 release hydralazine 50 mg tablet 50 mg PO DAILY PRN Hypertension 08/29/22 12/05/22 lidocaine 5 % topical patch 2 patch topical DAILY 08/29/22 12/05/22 (Lidoderm) lisinopril 10 mg tablet 10 mg PO DAILY 08/29/22 12/05/22 loratadine 10 mg tablet 10 mg PO DAILY 08/29/22 12/05/22 meloxicam 7.5 mg tablet 7.5 mg PO Q12H PRN Pain 08/29/22 12/05/22 naloxone 4 mg/actuation nasal spray 1 spray intranasal DIRECTED PRN 08/29/22 12/05/22 Opiate Reversal sodium phosphates 19 gram-7 118 ml RECTAL ONCE PRN Constipation 08/29/22 12/05/22 gram/118 mL harvey
[2023-02-16 20:14] LABS: Appearance Urine Cloudy (Clear); Bacteria Urine 4+ /hpf; Bilirubin Urine Negative (Negative); Blood Urine Negative (Negative); Color Urine Yellow (Yellow); Glucose Urine UA Negative (Negative); Ketones Urine Negative (Negative); Leukocyte Esterase Ur 2+ LEU/UL (Negative); Nitrate Urine Positive (Negative); Protein Urine 1+ mg/dL (Negative); RBC Urine 0-2 /hpf (0-2); Squamous Epithelial Cell Urine Occasional /hpf (Few); Urobilinogen Urine 0.2 mg/dL (<2.0); WBC Urine 21-50 /hpf; pH Urine 5.5 (5.0-9.0)
[2023-02-16 20:18] LABS: Add Urine Microscopic? YES
[2023-02-16 20:18] LABS: Basophils Percent Auto 0.4 % (0.2-1.2); Eosinophils Absolute Auto 0.3 K/mm3 (0-0.3); Eosinophils Percent Auto 3.5 % (0-4.4); Hemoglobin 10.8 g/dL (14.0-18.0); Immature Granulocyte Absolute 0.04 K/mm3 (0.00-0.031); Immature Granulocyte Percent A 0.4 % (0-0.5); Lymphocytes Absolute Auto 0.97 K/mm3 (0.9-3.2); Lymphocytes Percent Auto 10.5 % (18.3-44.2); Mean Corpuscular HGB Conc 30.9 g/dl (32-36); Mean Corpuscular Hemoglobin 29.9 pg (26-34); Mean Platelet Volume 11.5 fl (7.4-10.4); Monocytes Absolute Auto 0.8 K/mm3 (0.1-0.6); Monocytes Percent Auto 9.1 % (2.6-8.5); Neutrophils Percent Auto 76.1 % (45.5-73.1); Platelet Count Result 158 k/mm3 (150-375); Red Blood Count 3.61 M/mm3 (4.6-6.20); Red Cell Distribution Width 13.5 % (11.5-14.5); White Blood Count 9.2 K/mm3 (4.5-10.0)
[2023-02-16 20:29] LABS: Anion Gap 3 mmol/L (8-16); Blood Urea Nitrogen 31 mg/dL (9-20); Calcium 8.3 mg/dL (8.4-10.2); Carbon Dioxide 31 mmol/L (22-30); Chloride 103 mmol/L (98-107); Estimated CRCL calculation 52 ml/min; Estimated Glomerular Filt Rate 54; Glucose 105 mg/dL (65-110); Potassium 4.2 mmol/L (3.4-5.0); Sodium 137 mmol/L (137-145)
[2023-02-16] MEDS: SODIUM CHLORIDE 0.9% IV 1,000 ML 999 ML IV CONT (21:04)
[2023-02-16 21:21] VITALS: BP 140/66; PULSE 76; RESP 15; O2SAT 98
[2023-02-16] MEDS: CEFEPIME 2 GM/NS 50 ML 2 GM/50 ML BAG IVPB (21:21)
[2023-02-16 22:34] VITALS: BP 107/60; PULSE 66; RESP 18; O2SAT 99
[2023-02-16 22:49] VITALS: BP 102/58; PULSE 80; RESP 15; O2SAT 100
[2023-02-16 23:14] VITALS: BP 104/58; PULSE 82; RESP 14; O2SAT 100
== END 2023-02-16 23:16 ==
PROVIDERS: Emergency Provider Physician Assistant; PCP Internal Medicine
DX: N39.0 Urinary tract infection, site not specified (principal); G82.54 Quadriplegia, C5-C7 incomplete; N31.9 Neuromuscular dysfunction of bladder, unspecified; I69.998 Other sequelae following unspecified cerebrovascular disease; H53.8 Other visual disturbances; I10 Essential (primary) hypertension; D64.9 Anemia, unspecified; G89.4 Chronic pain syndrome; S14.155S Other incomplete lesion at C5 level of cervical spinal cord, sequela; V29.99XS Rider (driver) (passenger) of other motorcycle injured in unspecified traffic accident, sequela; K21.9 Gastro-esophageal reflux disease without esophagitis; F17.210 Nicotine dependence, cigarettes, uncomplicated; Z96.0 Presence of urogenital implants; Z86.16 Personal history of COVID-19; Z86.718 Personal history of other venous thrombosis and embolism
CPT/HCPCS: 36415; 80048; 81001; 85025; 87077; 87086; 87186; 96361; 96365; 99284; J0692; J7030

== ENCOUNTER 2023-06-23 12:57 | Emergency (ER) | payer OTHER, SELFPAY ==
[2023-06-23] VITALS (21 sets, daily range): BP systolic 116–157; BP diastolic 57–71; PULSE 53–64; RESP 9–20; TEMP 36.4; O2SAT 93–100
--- NOTE | ~2023-06-23 | CT_ITS ---
EXAMINATION: CT abdomen pelvis w con DATE: 06/23/2023 15:17 INDICATION: Suprapubic and penile pain. TECHNIQUE: Computed tomography (CT) of the abdomen and pelvis was performed with 100 mL Omnipaque 350 intravenous contrast. Automated exposure control and iterative reconstruction technique were employe d. The dose-length product was 723.43 mGy-cm. COMPARISON: CT abdomen and pelvis 04/18/2022 FINDINGS: There are calcified pleural plaques bilaterally, which may be seen with asbestosis exposure . There is chronic peripheral rounded atelectasis in the lower lobes. No pleural effusion. The heart size is normal. No pericardial effusion. There is ectasia of the aortic root measuring 4.5 cm. There is bilateral gynecomastia. There are cysts in the liver measuring up to 17 mm. The spleen is normal. There are gallstones in the gallbladder, which is contracted. There are embolization coils in the are a of gastroduodenal artery. There is a filter in the inferior vena cava. The adrenal glands are dima l. There is cortical thinning of the kidneys. There is a 7 mm cyst in right kidney. There is mild lef t hydronephrosis. A suprapubic catheter is noted. There is diffuse bladder wall thickening. The prost ate is moderately enlarged. The appendix is normal. The sigmoid colon is distended, consistent with a dynamic ileus. Aortic atherosclerosis is noted. There are no pathologically enlarged lymph nodes. The re is no free intraperitoneal fluid. There are subcutaneous electrodes in right posterior pelvis. The re is an intrathecal catheter. There is mild thoracic and lumbar spondylosis. IMPRESSION: 1. Chronic mild left hydronephrosis. 2. Diffuse bladder wall thickening, which may be secondary to chronic outlet obstruction from the mod erately enlarged prostate. 3. Distended sigmoid colon, consistent with adynamic ileus. Reviewed, dictated and finalized at [facility] IMPRESSION: 1. Chronic mild left hydronephrosis. 2. Diffuse bladder wall thickening, which may be secondary to chronic outlet ob struction from the moderately enlarged prostate. 3. Distended sigmoid colon, consistent with adynamic ileus.
--- NOTE | 2023-06-23 13:21 | ED.ABDPAIN ---
HPI - Abdominal Pain General Chief Complaint: Abdominal Pain Stated Complaint: ABD PAIN Time Seen by Provider: 06/23/23 13:04 History of Present Illness HPI narrative: 73-year-old male presenting to the emergency department for evaluation abdominal pain and pain at the tip of his penis. Patient is a partial quadriplegic and does have a suprapubic Martínez catheter. Patient reports that the Martínez catheter was changed last week and the Martínez catheter bag was changed yesterday. Patient states he the abdominal pain and pain at the tip of the penis today. Patient states that he does have a history of urinary tract infections and this is usually how they feel. Patient denies any change in bowel habits. Patient denies any associated chest pain or shortness of breath. Patient denies any nausea vomiting or diarrhea. Related Data Home Medications Medication Instructions Recorded Confirmed Dulcolax (bisacodyl) 10 mg PO DAILY PRN Constipation 12/11/19 12/05/22 Lactobacillus acidophilus 1 tab-cap PO DAILY@1200 12/11/19 12/05/22 acetaminophen 1,000 mg PO Q6H PRN Pain 12/11/19 12/05/22 amlodipine 10 mg PO DAILY@1200 12/11/19 12/05/22 atorvastatin 80 mg tablet 80 mg PO HS 12/11/19 12/05/22 baclofen 5 mg tablet 5 mg PO TID PRN Muscle Spasm 12/11/19 12/05/22 docusate sodium 100 mg capsule 100 mg PO DAILY 12/11/19 12/05/22 (Colace) ferrous sulfate 325 mg (65 mg 325 mg PO EVERY OTHER DAY 12/11/19 12/05/22 iron) tablet folic acid 1 mg PO DAILY@1200 12/11/19 12/05/22 hydralazine 25 mg PO DAILY PRN Hypertension 12/11/19 12/05/22 lidocaine 5 % topical cream 1 applic topical Q8H PRN Pain 12/11/19 12/05/22 melatonin 10 mg tablet 10 mg PO HS PRN Insomnia 12/11/19 12/05/22 pregabalin 100 mg capsule (Lyrica) 100 mg PO BID 12/11/19 12/05/22 guaifenesin 600 mg tablet, 600 mg PO Q12H PRN Allergic 12/12/19 12/05/22 extended release 12 hr (Mucinex) Symptoms [id number] 1 applic topical Q4H PRN Pain 12/12/19 12/05/22 comb#1 11 %-11 % topical cream mirabegron 25 mg tablet,extended 25 mg PO DAILY 12/12/19 12/05/22 release 24 hr polyethylene glycol 3350 17 17 g PO DAILY PRN Constipation 12/12/19 12/05/22 gram/dose oral powder (Miralax) psyllium husk 3.4 gram/5.4 gram 3.4 g PO BID 12/12/19 12/05/22 oral powder (Metamucil) sennosides 8.6 mg-docusate sodium 1 tablet PO BID 12/12/19 12/05/22 50 mg tablet (Senna Plus) simethicone 80 mg chewable tablet 125 mg PO BID PRN Indigestion 12/12/19 12/05/22 (Gas Relief (simethicone)) glycerin-mineral oil 5 ml BYMOUTH TID PRN Constipation 03/09/20 12/05/22 carboxymethylcellulose sodium 0.5 1 drp EACH EYE TID 08/29/22 12/05/22 % eye drops cholecalciferol (vitamin D3) 25 25 mcg PO DAILY 08/29/22 12/05/22 mcg (1,000 unit) capsule diclofenac sodium 1 % topical gel 2 g topical QID 08/29/22 12/05/22 duloxetine 60 mg capsule,delayed 60 mg PO DAILY 08/29/22 12/05/22 release hydralazine 50 mg tablet 50 mg PO DAILY PRN Hypertension 08/29/22 12/05/22 lidocaine 5 % topical patch 2 patch topical DAILY 08/29/22 12/05/22 (Lidoderm) lisinopril 10 mg tablet 10 mg PO DAILY 08/29/22 12/05/22 loratadine 10 mg tablet 10 mg PO DAILY 08/29/22 12/05/22 meloxicam 7.5 mg tablet 7.5 mg PO Q12H PRN Pain 08/29/22 12/05/22 naloxone 4 mg/actuation nasal spray 1 spray intranasal DIRECTED PRN 08/29/22 12/05/22 Opiate Reversal sodium phosphates 19 gram-7 118 ml RECTAL ONCE PRN Constipation 08/29/22 12/05/22 gram/118 mL enema (Fleet Enema) triamcinolone acetonide 0.1 % 1 applic topical DAILY 08/29/22 12/05/22 topical cream zinc oxide 17 %-white petrolatum 1 applic topical QSHIFT 08/29/22 12/05/22 57 % topical paste Allergies Allergy/AdvReac Type Severity Reaction Status Date / Time piperacillin Allergy Unknown Unknown Verified 02/16/23 19:35 sulfamethoxazole Allergy Unknown Unknown Verified 02/16/23 19:35 tazobactam Allergy Unknown Unknown Verified 02/16/23 19:35 tizanidine Allergy Unknown Unknown Verified
[2023-06-23 13:53] LABS: Basophils Percent Auto 0.3 % (0.2-1.2); Eosinophils Absolute Auto 0.3 K/mm3 (0-0.3); Eosinophils Percent Auto 3.6 % (0-4.4); Hematocrit 37.1 % (42.0-52.0); Hemoglobin 10.7 g/dL (14.0-18.0); Immature Granulocyte Absolute 0.02 K/mm3 (0.00-0.031); Immature Granulocyte Percent A 0.3 % (0-0.5); Lymphocytes Absolute Auto 0.85 K/mm3 (0.9-3.2); Lymphocytes Percent Auto 11.4 % (18.3-44.2); Mean Corpuscular HGB Conc 28.8 g/dl (32-36); Mean Corpuscular Hemoglobin 27.2 pg (26-34); Mean Corpuscular Volume 94.4 fl (80-100); Mean Platelet Volume 11.4 fl (7.4-10.4); Monocytes Percent Auto 12.7 % (2.6-8.5); Neutrophils Absolute Auto 5.4 K/mm3 (1.3-6.7); Neutrophils Percent Auto 71.7 % (45.5-73.1); Platelet Count Result 167 k/mm3 (150-375); Red Blood Count 3.93 M/mm3 (4.6-6.20); Red Cell Distribution Width 15.2 % (11.5-14.5); White Blood Count 7.5 K/mm3 (4.5-10.0)
[2023-06-23 14:05] LABS: Alanine Aminotransferase 29 U/L (6-50); Albumin Level 3.8 g/dL (3.5-5.1); Alkaline Phosphatase 118 U/L (38-126); Anion Gap 7 mmol/L (8-16); Aspartate Amino Transferase 27 U/L (17-59); Bilirubin,Total 0.4 mg/dL (0.2-1.3); Blood Urea Nitrogen 28 mg/dL (9-20); Calcium 8.4 mg/dL (8.4-10.2); Carbon Dioxide 28 mmol/L (22-30); Chloride 107 mmol/L (98-107); Estimated CRCL calculation 68 ml/min; Estimated Glomerular Filt Rate > 60; Glucose 96 mg/dL (65-110); Potassium 4.5 mmol/L (3.4-5.0); Sodium 142 mmol/L (137-145)
[2023-06-23 14:12] LABS: Appearance Urine Clear (Clear); Bacteria Urine None Seen /hpf; Bilirubin Urine Negative (Negative); Blood Urine Negative (Negative); Color Urine Yellow (Yellow); Glucose Urine UA Negative (Negative); Ketones Urine Negative (Negative); Leukocyte Esterase Ur 2+ LEU/UL (Negative); Need Manual Microscopic Reviewed; Nitrate Urine Positive (Negative); Protein Urine Negative (Negative); RBC Urine 0-2 /hpf (0-2); Squamous Epithelial Cell Urine None seen /hpf (Few); Urobilinogen Urine 0.2 mg/dL (<2.0); pH Urine 5.5 (5.0-9.0)
[2023-06-23 14:16] LABS: Add Urine Microscopic? YES
== END 2023-06-23 18:47 ==
PROVIDERS: Emergency Provider Emergency Medicine; PCP Internal Medicine
DX: N39.0 Urinary tract infection, site not specified (principal); R10.9 Unspecified abdominal pain; N48.89 Other specified disorders of penis; S14.155S Other incomplete lesion at C5 level of cervical spinal cord, sequela; G82.54 Quadriplegia, C5-C7 incomplete; I10 Essential (primary) hypertension; N31.9 Neuromuscular dysfunction of bladder, unspecified; D64.9 Anemia, unspecified; K21.9 Gastro-esophageal reflux disease without esophagitis; F17.210 Nicotine dependence, cigarettes, uncomplicated; Z93.59 Other cystostomy status; Z86.718 Personal history of other venous thrombosis and embolism; Z86.16 Personal history of COVID-19; Z79.82 Long term (current) use of aspirin; N40.0 Benign prostatic hyperplasia without lower urinary tract symptoms; N13.30 Unspecified hydronephrosis; R93.41 Abnormal radiologic findings on diagnostic imaging of renal pelvis, ureter, or bladder; R93.3 Abnormal findings on diagnostic imaging of other parts of digestive tract; V29.99XS Rider (driver) (passenger) of other motorcycle injured in unspecified traffic accident, sequela
CPT/HCPCS: 36415; 74177; 80053; 81001; 85025; 87077; 87086; 87186; 96365; 99284; J0696; Q9967

== ENCOUNTER 2023-09-17 13:36 | Emergency (ER) | payer OTHER, SELFPAY ==
[2023-09-17 13:40] VITALS: BP 133/60; PULSE 58; RESP 18; TEMP 36.4; O2SAT 99
--- NOTE | 2023-09-17 13:48 | ED.MALEGU ---
HPI - Male Genitourinary General Chief complaint: Urogenital-Male <Carlee Deluna PA-C - Last Filed: 09/17/23 15:41> Stated complaint: UTI symptoms <Carlee Deluna PA-C - Last Filed: 09/17/23 15:41> Time Seen by Provider: 09/17/23 13:40 <Carlee Deluna PA-C - Last Filed: 09/17/23 15:41> History of Present Illness HPI Narrative: 73-year-old male with a history of quadriplegia due to a prior cervical spine injury with a chronic indwelling suprapubic catheter presents to emergency department for concerns for UTI. Patient states he has some burning in his penis and his head feels foggy. States this is how he normally presents when he has a urinary tract infection. He denies fever, nausea vomiting, diarrhea, abdominal pain, flank pain, chest pain shortness of breath, cough or congestion. States he last changes suprapubic catheter 1 week ago and normally changes it every 3 weeks. Patient lives at a local [facility]. <Carlee Deluna PA-C - Last Filed: 09/17/23 15:41> Related Data Home medications: Home Medications Medication Instructions Recorded Confirmed Dulcolax (bisacodyl) 10 mg PO DAILY PRN Constipation 12/11/19 12/05/22 Lactobacillus acidophilus 1 tab-cap PO DAILY@1200 12/11/19 12/05/22 acetaminophen 1,000 mg PO Q6H PRN Pain 12/11/19 12/05/22 amlodipine 10 mg PO DAILY@1200 12/11/19 12/05/22 atorvastatin 80 mg tablet 80 mg PO HS 12/11/19 12/05/22 baclofen 5 mg tablet 5 mg PO TID PRN Muscle Spasm 12/11/19 12/05/22 docusate sodium 100 mg capsule 100 mg PO DAILY 12/11/19 12/05/22 (Colace) ferrous sulfate 325 mg (65 mg 325 mg PO EVERY OTHER DAY 12/11/19 12/05/22 iron) tablet folic acid 1 mg PO DAILY@1200 12/11/19 12/05/22 hydralazine 25 mg PO DAILY PRN Hypertension 12/11/19 12/05/22 lidocaine 5 % topical cream 1 applic topical Q8H PRN Pain 12/11/19 12/05/22 melatonin 10 mg tablet 10 mg PO HS PRN Insomnia 12/11/19 12/05/22 pregabalin 100 mg capsule (Lyrica) 100 mg PO BID 12/11/19 12/05/22 guaifenesin 600 mg tablet, 600 mg PO Q12H PRN Allergic 12/12/19 12/05/22 extended release 12 hr (Mucinex) Symptoms [id number]-lxdtvfj-[id number] 1 applic topical Q4H PRN Pain 12/12/19 12/05/22 comb#1 11 %-11 % topical cream mirabegron 25 mg tablet,extended 25 mg PO DAILY 12/12/19 12/05/22 release 24 hr polyethylene glycol 3350 17 17 g PO DAILY PRN Constipation 12/12/19 12/05/22 gram/dose oral powder (Miralax) psyllium husk 3.4 gram/5.4 gram 3.4 g PO BID 12/12/19 12/05/22 oral powder (Metamucil) sennosides 8.6 mg-docusate sodium 1 tablet PO BID 12/12/19 12/05/22 50 mg tablet (Senna Plus) simethicone 80 mg chewable tablet 125 mg PO BID PRN Indigestion 12/12/19 12/05/22 (Gas Relief (simethicone)) glycerin-mineral oil 5 ml BYMOUTH TID PRN Constipation 03/09/20 12/05/22 carboxymethylcellulose sodium 0.5 1 drp EACH EYE TID 08/29/22 12/05/22 % eye drops cholecalciferol (vitamin D3) 25 25 mcg PO DAILY 08/29/22 12/05/22 mcg (1,000 unit) capsule diclofenac sodium 1 % topical gel 2 g topical QID 08/29/22 12/05/22 duloxetine 60 mg capsule,delayed 60 mg PO DAILY 08/29/22 12/05/22 release hydralazine 50 mg tablet 50 mg PO DAILY PRN Hypertension 08/29/22 12/05/22 lidocaine 5 % topical patch 2 patch topical DAILY 08/29/22 12/05/22 (Lidoderm) lisinopril 10 mg tablet 10 mg PO DAILY 08/29/22 12/05/22 loratadine 10 mg tablet 10 mg PO DAILY 08/29/22 12/05/22 meloxicam 7.5 mg tablet 7.5 mg PO Q12H PRN Pain 08/29/22 12/05/22 naloxone 4 mg/actuation nasal spray 1 spray intranasal DIRECTED PRN 08/29/22 12/05/22 Opiate Reversal sodium phosphates 19 gram-7 118 ml RECTAL ONCE PRN Constipation 08/29/22 12/05/22 gram/118 mL enema (Fleet Enema) triamcinolone acetonide 0.1 % 1 applic topical DAILY 08/29/22 12/05/22 topical cream zinc oxide 17 %-white petrolatum 1 applic topical QSHIFT 08/29/22 12/05/22 57 % topical paste <Carlee Deluna PA-C - Last Filed: 09/17/23 15:41> Allergies/Adver
[2023-09-17 14:08] LABS: Appearance Urine Clear (Clear); Bacteria Urine 4+ /hpf; Bilirubin Urine Negative (Negative); Blood Urine Trace (Negative); Color Urine Yellow (Yellow); Glucose Urine UA Negative (Negative); Ketones Urine Negative (Negative); Leukocyte Esterase Ur 3+ LEU/UL (Negative); Nitrate Urine Positive (Negative); Non Pathogenic Casts 0-2; Protein Urine Negative (Negative); RBC Urine 0-2 /hpf (0-2); Specific Grav Ur 1.009 (1.001-1.035); Squamous Epithelial Cell Urine None Seen /hpf (Few); Urobilinogen Urine 0.2 mg/dL (<2.0); WBC Urine 51-100 /hpf (0-3)
[2023-09-17 14:09] LABS: Basophils Percent Auto 0.3 % (0.2-1.2); Eosinophils Absolute Auto 0.2 K/mm3 (0-0.3); Eosinophils Percent Auto 3.9 % (0-4.4); Hematocrit 40.9 % (42.0-52.0); Hemoglobin 12.4 g/dL (14.0-18.0); Immature Granulocyte Absolute 0.01 K/mm3 (0.00-0.031); Immature Granulocyte Percent A 0.2 % (0-0.5); Lymphocytes Absolute Auto 0.93 K/mm3 (0.9-3.2); Lymphocytes Percent Auto 14.9 % (18.3-44.2); Mean Corpuscular HGB Conc 30.3 g/dl (32-36); Mean Corpuscular Hemoglobin 27.8 pg (26-34); Mean Corpuscular Volume 91.7 fl (80-100); Mean Platelet Volume 10.4 fl (7.4-10.4); Monocytes Absolute Auto 0.7 K/mm3 (0.1-0.6); Monocytes Percent Auto 11.1 % (2.6-8.5); Neutrophils Absolute Auto 4.3 K/mm3 (1.3-6.7); Neutrophils Percent Auto 69.6 % (45.5-73.1); Platelet Count Result 152 k/mm3 (150-375); Red Blood Count 4.46 M/mm3 (4.6-6.20); White Blood Count 6.2 K/mm3 (4.5-10.0)
[2023-09-17 14:18] LABS: Alanine Aminotransferase 19 U/L (6-50); Albumin Level 3.9 g/dL (3.5-5.1); Alkaline Phosphatase 126 U/L (38-126); Anion Gap 4 mmol/L (8-16); Aspartate Amino Transferase 27 U/L (17-59); Bilirubin,Total 0.7 mg/dL (0.2-1.3); Blood Urea Nitrogen 22 mg/dL (9-20); Calcium 8.6 mg/dL (8.4-10.2); Carbon Dioxide 31 mmol/L (22-30); Chloride 107 mmol/L (98-107); Estimated CRCL calculation 76 ml/min; Estimated Glomerular Filt Rate > 60; Glucose 107 mg/dL (65-110); Potassium 4.4 mmol/L (3.4-5.0); Sodium 142 mmol/L (137-145)
[2023-09-17 14:22] LABS: Add Urine Microscopic? YES
--- NOTE | 2023-09-17 15:24 | PC.NURSE ---
This RN spoke with LEONIE Clay, at [facility] about IV and medications for patient. Obed stated a PIV was fine for IV abx and that the facility can provide meropenem Q8 for patient. CADY Joseph, made aware.
[2023-09-17] MEDS: MEROPENEM 1 GM/NS 100 ML 1 GM/100 ML BAG IVPB (16:02)
[2023-09-17 16:47] VITALS: BP 136/72; PULSE 62; RESP 16; TEMP 36.4; O2SAT 98
== END 2023-09-17 16:48 ==
PROVIDERS: Emergency Provider Physician Assistant; PCP Internal Medicine
DX: T83.510A Infection and inflammatory reaction due to cystostomy catheter, initial encounter (principal); S14.105S Unspecified injury at C5 level of cervical spinal cord, sequela; G82.54 Quadriplegia, C5-C7 incomplete; I69.998 Other sequelae following unspecified cerebrovascular disease; H53.8 Other visual disturbances; I10 Essential (primary) hypertension; K21.9 Gastro-esophageal reflux disease without esophagitis; N31.9 Neuromuscular dysfunction of bladder, unspecified; F17.210 Nicotine dependence, cigarettes, uncomplicated; Z86.718 Personal history of other venous thrombosis and embolism; Z86.16 Personal history of COVID-19; Z79.82 Long term (current) use of aspirin; Y84.6 Urinary catheterization as the cause of abnormal reaction of the patient, or of later complication, without mention of misadventure at the time of the procedure; V29.99XS Rider (driver) (passenger) of other motorcycle injured in unspecified traffic accident, sequela
CPT/HCPCS: 36415; 80053; 85025; 87077; 87086; 87088; 87186; 96365; 99284; J2185

== ENCOUNTER 2023-09-28 15:25 | Emergency (ER) | payer OTHER, SELFPAY ==
--- NOTE | ~2023-09-28 | CT_ITS ---
EXAMINATION: CT abdomen pelvis wo con DATE: 09/28/2023 17:17 INDICATION: Abdominal pain TECHNIQUE: Computed tomography (CT) of the abdomen and pelvis was performed without intravenous contr ast. The dose-length product (DLP) was 623.80 mGy-cm. Automated exposure control and iterative recons truction technique were employed. COMPARISON: 06/23/2023 FINDINGS: There are calcified and noncalcified pleural plaques of the visualized lung bases which can be seen in the setting of prior asbestos exposure. Atelectasis is noted in the visualized lung bases . The heart size is normal. Calcified coronary artery atherosclerosis is noted. There is moderate lowell ateral gynecomastia. Cysts of the liver measure up to 1.7 cm. The spleen, pancreas, and adrenal gland s are unremarkable. Stones are present in the nondistended gallbladder. An IVC filter is noted. Embol ization coils are present in the gastroduodenal artery. Cysts of the kidneys measure up to 6 mm on th e right. The bladder is decompressed by a suprapubic catheter. There is chronic wall thickening of th e urinary bladder. A moderate volume of colonic stool is present. The appendix is normal. 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 IMPRESSION: 1. Chronic wall thickening of the urinary bladder decompressed by a suprapubic catheter which could r eflect cystitis versus chronic outlet obstruction. 2. Constipation. Reviewed, dictated and finalized at location [facility]. IMPRESSION: 1. Chronic wall thickening of the urinary bladder decompressed by a suprapubic catheter which could reflect cystitis versus chronic outlet obstruction. 2. Constipation.
[2023-09-28 15:26] VITALS: BP 150/63; PULSE 59; RESP 18; TEMP 36; O2SAT 98
[2023-09-28 16:22] LABS: Bacteria Urine None Seen /hpf; Need Manual Microscopic Reviewed; RBC Urine 0-2 /hpf (0-2); Squamous Epithelial Cell Urine Occasional /hpf (Few)
[2023-09-28 16:33] LABS: Appearance Urine Sl Cloudy (Clear); Color Urine Yellow (Yellow); Protein Urine Negative (Negative); Specific Grav Ur 1.015 (1.001-1.035); pH Urine 5.5 (5.0-9.0)
[2023-09-28 16:34] LABS: Bilirubin Urine Negative (Negative); Blood Urine Negative (Negative); Glucose Urine UA Negative (Negative); Ketones Urine Negative (Negative); Leukocyte Esterase Ur 1+ LEU/UL (Negative); Nitrate Urine Negative (Negative); Urobilinogen Urine 0.2 mg/dL (<2.0)
[2023-09-28 16:35] LABS: Add Urine Microscopic? YES
--- NOTE | 2023-09-28 17:06 | ED.GENADULT ---
HPI - General Adult General Chief complaint: Urogenital-Male Stated complaint: uti Time Seen by Provider: 09/28/23 15:48 History of Present Illness HPI narrative: 73-year-old male that is an incomplete quad presented to the emergency department for evaluation of suspicion for an incompletely treated urinary tract infection. Patient was seen in the ED few weeks ago and started on antibiotic. Patient states when he has a urinary tract infection he develops pain at the tip of his penis and patient has been having this sensation. Related Data Home Medications Medication Instructions Recorded Confirmed Dulcolax (bisacodyl) 10 mg PO DAILY PRN Constipation 12/11/19 12/05/22 Lactobacillus acidophilus 1 tab-cap PO DAILY@1200 12/11/19 12/05/22 acetaminophen 1,000 mg PO Q6H PRN Pain 12/11/19 12/05/22 amlodipine 10 mg PO DAILY@1200 12/11/19 12/05/22 atorvastatin 80 mg tablet 80 mg PO HS 12/11/19 12/05/22 baclofen 5 mg tablet 5 mg PO TID PRN Muscle Spasm 12/11/19 12/05/22 docusate sodium 100 mg capsule 100 mg PO DAILY 12/11/19 12/05/22 (Colace) ferrous sulfate 325 mg (65 mg 325 mg PO EVERY OTHER DAY 12/11/19 12/05/22 iron) tablet folic acid 1 mg PO DAILY@1200 12/11/19 12/05/22 hydralazine 25 mg PO DAILY PRN Hypertension 12/11/19 12/05/22 lidocaine 5 % topical cream 1 applic topical Q8H PRN Pain 12/11/19 12/05/22 melatonin 10 mg tablet 10 mg PO HS PRN Insomnia 12/11/19 12/05/22 pregabalin 100 mg capsule (Lyrica) 100 mg PO BID 12/11/19 12/05/22 guaifenesin 600 mg tablet, 600 mg PO Q12H PRN Allergic 12/12/19 12/05/22 extended release 12 hr (Mucinex) Symptoms [id number]-[id number] 1 applic topical Q4H PRN Pain 12/12/19 12/05/22 comb#1 11 %-11 % topical cream mirabegron 25 mg tablet,extended 25 mg PO DAILY 06/09/20 06/03/23 release 24 hr polyethylene glycol 3350 17 17 g PO DAILY PRN Constipation 12/12/19 12/05/22 gram/dose oral powder (Miralax) psyllium husk 3.4 gram/5.4 gram 3.4 g PO BID 12/12/19 12/05/22 oral powder (Metamucil) sennosides 8.6 mg-docusate sodium 1 tablet PO BID 12/12/19 12/05/22 50 mg tablet (Senna Plus) simethicone 80 mg chewable tablet 125 mg PO BID PRN Indigestion 12/12/19 12/05/22 (Gas Relief (simethicone)) glycerin-mineral oil 5 ml BYMOUTH TID PRN Constipation 03/09/20 12/05/22 carboxymethylcellulose sodium 0.5 1 drp EACH EYE TID 08/29/22 12/05/22 % eye drops cholecalciferol (vitamin D3) 25 25 mcg PO DAILY 08/29/22 12/05/22 mcg (1,000 unit) capsule diclofenac sodium 1 % topical gel 2 g topical QID 08/29/22 12/05/22 duloxetine 60 mg capsule,delayed 60 mg PO DAILY 08/29/22 12/05/22 release hydralazine 50 mg tablet 50 mg PO DAILY PRN Hypertension 08/29/22 12/05/22 lidocaine 5 % topical patch 2 patch topical DAILY 08/29/22 12/05/22 (Lidoderm) lisinopril 10 mg tablet 10 mg PO DAILY 08/29/22 12/05/22 loratadine 10 mg tablet 10 mg PO DAILY 08/29/22 12/05/22 meloxicam 7.5 mg tablet 7.5 mg PO Q12H PRN Pain 08/29/22 12/05/22 naloxone 4 mg/actuation nasal spray 1 spray intranasal DIRECTED PRN 08/29/22 12/05/22 Opiate Reversal sodium phosphates 19 gram-7 118 ml RECTAL ONCE PRN Constipation 08/29/22 12/05/22 gram/118 mL enema (Fleet Enema) triamcinolone acetonide 0.1 % 1 applic topical DAILY 08/29/22 12/05/22 topical cream zinc oxide 17 %-white petrolatum 1 applic topical QSHIFT 08/29/22 12/05/22 57 % topical paste Allergies Allergy/AdvReac Type Severity Reaction Status Date / Time piperacillin Allergy Unknown Unknown Verified 09/28/23 15:47 sulfamethoxazole Allergy Unknown Unknown Verified 09/28/23 15:47 tazobactam Allergy Unknown Unknown Verified 09/28/23 15:47 tizanidine Allergy Unknown Unknown Verified 09/28/23 15:47 trimethoprim Allergy Unknown Unknown Verified 09/28/23 15:47 venlafaxine Allergy Unknown Unknown Verified 09/28/23 15:47 Review of Systems Review of Systems: All systems reviewed & are unremarkable except as noted in HPI and below PMFSH Past Medical Histor
[2023-09-28 18:02] VITALS: BP 140/74; PULSE 60; RESP 18; O2SAT 100
== END 2023-09-28 18:41 | disposition home or self-care (01) ==
PROVIDERS: Emergency Provider Emergency Medicine; PCP Internal Medicine
DX: N48.89 Other specified disorders of penis (principal); K59.00 Constipation, unspecified; F17.210 Nicotine dependence, cigarettes, uncomplicated; D64.9 Anemia, unspecified; F32.A Depression, unspecified; Z87.440 Personal history of urinary (tract) infections; K21.9 Gastro-esophageal reflux disease without esophagitis; I10 Essential (primary) hypertension; G82.54 Quadriplegia, C5-C7 incomplete
CPT/HCPCS: 74176; 81001; 87086; 99284

== ENCOUNTER 2023-12-04 13:18 | Emergency (ER) | payer OTHER, SELFPAY ==
[2023-12-04] VITALS (8 sets, daily range): BP systolic 136–167; BP diastolic 58–78; PULSE 52–57; RESP 9–19; TEMP 36.3–36.8; O2SAT 97–100
--- NOTE | 2023-12-04 13:31 | PC.NURSE ---
patient strongly declines removal of current mercado catheter.
[2023-12-04 13:46] LABS: Basophils Percent Auto 0.6 % (0.2-1.2); Eosinophils Absolute Auto 0.1 K/mm3 (0-0.3); Eosinophils Percent Auto 2.4 % (0-4.4); Hematocrit 40.5 % (42.0-52.0); Hemoglobin 12.4 g/dL (14.0-18.0); Immature Granulocyte Absolute 0.01 K/mm3 (0.00-0.031); Immature Granulocyte Percent A 0.2 % (0-0.5); Immature Platelet Fraction Pct 5.9 % (0.9-11.2); Lymphocytes Absolute Auto 0.87 K/mm3 (0.9-3.2); Lymphocytes Percent Auto 16.4 % (18.3-44.2); Mean Corpuscular HGB Conc 30.6 g/dl (32-36); Mean Corpuscular Hemoglobin 29.2 pg (26-34); Mean Corpuscular Volume 95.3 fl (80-100); Mean Platelet Volume 11.1 fl (7.4-10.4); Monocytes Absolute Auto 0.8 K/mm3 (0.1-0.6); Monocytes Percent Auto 14.1 % (2.6-8.5); Neutrophils Absolute Auto 3.5 K/mm3 (1.3-6.7); Neutrophils Percent Auto 66.3 % (45.5-73.1); Platelet Count Result 144 k/mm3 (150-375); Red Blood Count 4.25 M/mm3 (4.6-6.20); Red Cell Distribution Width 15.1 % (11.5-14.5); White Blood Count 5.3 K/mm3 (4.5-10.0)
[2023-12-04 13:54] LABS: Alanine Aminotransferase 20 U/L (6-50); Albumin Level 3.8 g/dL (3.5-5.1); Alkaline Phosphatase 108 U/L (38-126); Anion Gap 4 mmol/L (4-12); Aspartate Amino Transferase 26 U/L (17-59); Bilirubin,Total 0.5 mg/dL (0.2-1.3); Blood Urea Nitrogen 22 mg/dL (9-20); Calcium 8.2 mg/dL (8.4-10.2); Carbon Dioxide 32 mmol/L (22-30); Chloride 107 mmol/L (98-107); Estimated CRCL calculation 68 ml/min; Estimated Glomerular Filt Rate > 60; Glucose 91 mg/dL (65-110); Potassium 4.6 mmol/L (3.4-5.0); Sodium 143 mmol/L (137-145)
--- NOTE | 2023-12-04 14:20 | PC.NURSE ---
patient declines replacing [facility] catheter. sample was retrieved from [facility] they arrived with
--- NOTE | 2023-12-04 14:32 | PC.NURSE ---
replaced mercado bag and tubing, but not catheter because patient strongly declined.
--- NOTE | 2023-12-04 14:37 | ED.MALEGU ---
HPI - Male Genitourinary General Chief complaint: Urogenital-Male Stated complaint: UTI sx Time Seen by Provider: 12/04/23 13:46 Source: patient Mode of arrival: ambulatory Limitations: no limitations History of Present Illness HPI Narrative: Tai is a 73-year-old male patient presenting to the ER today with complaints a possible UTI. She he reports he was seen at [place] a few weeks ago for the same symptoms and was prescribed Cipro. States that the Cipro does not usually help his urinary tract infection so they placed him on Macrobid. He is currently on Macrobid sending it is not helping. Is reporting having brain fog and this is normal with him having urinary tract infection. Patient has a suprapubic catheter. He is declining to have the suprapubic catheter changed in the ER today as it was just changed [place] a few weeks ago. He denies any fever, body aches, or chills. Related Data Home Medications Medication Instructions Recorded Confirmed Dulcolax (bisacodyl) 10 mg PO DAILY PRN Constipation 12/11/19 12/05/22 Lactobacillus acidophilus 1 tab-cap PO DAILY@1200 12/11/19 12/05/22 acetaminophen 1,000 mg PO Q6H PRN Pain 12/11/19 12/05/22 amlodipine 10 mg PO DAILY@1200 12/11/19 12/05/22 atorvastatin 80 mg tablet 80 mg PO HS 12/11/19 12/05/22 baclofen 5 mg tablet 5 mg PO TID PRN Muscle Spasm 12/11/19 12/05/22 docusate sodium 100 mg capsule 100 mg PO DAILY 12/11/19 12/05/22 (Colace) ferrous sulfate 325 mg (65 mg 325 mg PO EVERY OTHER DAY 12/11/19 12/05/22 iron) tablet folic acid 1 mg PO DAILY@1200 12/11/19 12/05/22 hydralazine 25 mg PO DAILY PRN Hypertension 12/11/19 12/05/22 lidocaine 5 % topical cream 1 applic topical Q8H PRN Pain 12/11/19 12/05/22 melatonin 10 mg tablet 10 mg PO HS PRN Insomnia 12/11/19 12/05/22 pregabalin 100 mg capsule (Lyrica) 100 mg PO BID 12/11/19 12/05/22 guaifenesin 600 mg tablet, 600 mg PO Q12H PRN Allergic 12/12/19 12/05/22 extended release 12 hr (Mucinex) Symptoms [id number]-bhpydwc-sczdhykvdiufn 1 applic topical Q4H PRN Pain 12/12/19 12/05/22 comb#1 11 %-11 % topical cream mirabegron 25 mg tablet,extended 25 mg PO DAILY 12/12/19 12/05/22 release 24 hr polyethylene glycol 3350 17 17 g PO DAILY PRN Constipation 12/12/19 12/05/22 gram/dose oral powder (Miralax) psyllium husk 3.4 gram/5.4 gram 3.4 g PO BID 12/12/19 12/05/22 oral powder (Metamucil) sennosides 8.6 mg-docusate sodium 1 tablet PO BID 12/12/19 12/05/22 50 mg tablet (Senna Plus) simethicone 80 mg chewable tablet 125 mg PO BID PRN Indigestion 12/12/19 12/05/22 (Gas Relief (simethicone)) glycerin-mineral oil 5 ml BYMOUTH TID PRN Constipation 03/09/20 12/05/22 carboxymethylcellulose sodium 0.5 1 drp EACH EYE TID 08/29/22 12/05/22 % eye drops cholecalciferol (vitamin D3) 25 25 mcg PO DAILY 08/29/22 12/05/22 mcg (1,000 unit) capsule diclofenac sodium 1 % topical gel 2 g topical QID 08/29/22 12/05/22 duloxetine 60 mg capsule,delayed 60 mg PO DAILY 08/29/22 12/05/22 release hydralazine 50 mg tablet 50 mg PO DAILY PRN Hypertension 08/29/22 12/05/22 lidocaine 5 % topical patch 2 patch topical DAILY 08/29/22 12/05/22 (Lidoderm) lisinopril 10 mg tablet 10 mg PO DAILY 08/29/22 12/05/22 loratadine 10 mg tablet 10 mg PO DAILY 08/29/22 12/05/22 meloxicam 7.5 mg tablet 7.5 mg PO Q12H PRN Pain 08/29/22 12/05/22 naloxone 4 mg/actuation nasal spray 1 spray intranasal DIRECTED PRN 08/29/22 12/05/22 Opiate Reversal sodium phosphates 19 gram-7 118 ml RECTAL ONCE PRN Constipation 08/29/22 12/05/22 gram/118 mL enema (Fleet Enema) triamcinolone acetonide 0.1 % 1 applic topical DAILY 08/29/22 12/05/22 topical cream zinc oxide 17 %-white petrolatum 1 applic topical QSHIFT 08/29/22 12/05/22 57 % topical paste Allergies Allergy/AdvReac Type Severity Reaction Status Date / Time piperacillin Allergy Unknown Unknown Verified 09/28/23 15:47 sulfamethoxazole Allergy Unknown Unknown Verified 09/28/23 15:47 tazobactam Allergy Unknown Unk
[2023-12-04 15:08] LABS: Appearance Urine Clear (Clear); Bilirubin Urine Negative (Negative); Blood Urine Negative (Negative); Color Urine Yellow (Yellow); Glucose Urine UA Negative (Negative); Ketones Urine Negative (Negative); Leukocyte Esterase Ur Negative LEU/UL (Negative); Nitrate Urine Negative (Negative); Protein Urine Negative (Negative); Specific Grav Ur 1.013 (1.001-1.035); Urobilinogen Urine 0.2 mg/dL (<2.0); pH Urine 5.5 (5.0-9.0)
[2023-12-04 15:14] LABS: Add Urine Microscopic? NO
--- NOTE | 2023-12-04 17:16 | PC.NURSE ---
called [facility] @[id number] and gave report and discharge instructions to GODFREY Romo. all questions answered.
== END 2023-12-04 17:20 ==
PROVIDERS: Emergency Medicine; Emergency Provider Nurse Practitioner Family; PCP Internal Medicine
DX: E86.0 Dehydration (principal); D64.9 Anemia, unspecified; Z87.440 Personal history of urinary (tract) infections; F32.A Depression, unspecified; I10 Essential (primary) hypertension; K21.9 Gastro-esophageal reflux disease without esophagitis; G82.54 Quadriplegia, C5-C7 incomplete; Z96.0 Presence of urogenital implants
CPT/HCPCS: 36415; 80053; 81003; 85025; 85055; 99283

== ENCOUNTER 2023-12-17 04:47 | Emergency (ER) | payer OTHER, SELFPAY ==
[2023-12-17 04:47] VITALS: BP 164/85; PULSE 73; RESP 17; TEMP 36.6; O2SAT 94
--- NOTE | 2023-12-17 04:53 | ECG_ITS ---
Test Date: 2023-12-17 05:08:24 Measurements Intervals [place] Rate: 70 P: 0 HI: 0 QRS: 77 QRSD: 102 T: 61 QT: 365 QTc: 395 Interpretive Statements BASELINE ARTIFACT, POOR QUALITY ECG SINUS RHYTHM WITH FIRST-DEGREE AV BLOCK POOR R-WAVE PROGRESSION POOR QUALITY ELECTROCARDIOGRAM No previous ECG available for comparison Electronically Signed On 12-17-2023 07:19:26 CDT by Severiano Sharma M.D.
[2023-12-17 05:01] VITALS: BP 166/81; PULSE 73; RESP 19; O2SAT 95
[2023-12-17 05:07] LABS: Basophils Percent Auto 0.7 % (0.2-1.2); Eosinophils Absolute Auto 0.2 K/mm3 (0-0.3); Eosinophils Percent Auto 2.8 % (0-4.4); Hematocrit 43.8 % (42.0-52.0); Hemoglobin 13.9 g/dL (14.0-18.0); Immature Granulocyte Absolute 0.02 K/mm3 (0.00-0.031); Immature Granulocyte Percent A 0.3 % (0-0.5); Lymphocytes Absolute Auto 0.82 K/mm3 (0.9-3.2); Lymphocytes Percent Auto 13.4 % (18.3-44.2); Mean Corpuscular HGB Conc 31.7 g/dl (32-36); Mean Corpuscular Hemoglobin 29.2 pg (26-34); Mean Platelet Volume 11.3 fl (7.4-10.4); Monocytes Absolute Auto 0.7 K/mm3 (0.1-0.6); Monocytes Percent Auto 11.5 % (2.6-8.5); Neutrophils Absolute Auto 4.4 K/mm3 (1.3-6.7); Neutrophils Percent Auto 71.3 % (45.5-73.1); Platelet Count Result 160 k/mm3 (150-375); Red Blood Count 4.76 M/mm3 (4.6-6.20); Red Cell Distribution Width 14.7 % (11.5-14.5); White Blood Count 6.1 K/mm3 (4.5-10.0)
--- NOTE | 2023-12-17 05:10 | ECG_ITS ---
Test Date: 2023-12-17 05:10:11 Measurements Intervals [place] Rate: 70 P: 0 AL: 0 QRS: 33 QRSD: 106 T: 64 QT: 371 QTc: 403 Interpretive Statements sinus rhythm baseline artifact limits interpretation LEFT VENTRICULAR HYPERTROPHY AND ST-T CHANGE [VOLTAGE CRITERIA PLUS ST/T ABNORMALITY] Compared to ECG 12/17/2023 05:08:24 comparison with prior EKGs limited by artifacts Electronically Signed On 12-18-2023 15:46:55 CDT by Ari Ocampo M.D.
[2023-12-17 05:16] VITALS: BP 165/88; PULSE 70; RESP 13; O2SAT 94
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
[2023-12-17 05:19] LABS: Alanine Aminotransferase 25 U/L (6-50); Albumin Level 4.2 g/dL (3.5-5.1); Alkaline Phosphatase 123 U/L (38-126); Anion Gap 7 mmol/L (4-12); Aspartate Amino Transferase 28 U/L (17-59); Bilirubin,Total 0.6 mg/dL (0.2-1.3); Blood Urea Nitrogen 22 mg/dL (9-20); Calcium 8.5 mg/dL (8.4-10.2); Carbon Dioxide 30 mmol/L (22-30); Chloride 108 mmol/L (98-107); Estimated CRCL calculation 76 ml/min; Estimated Glomerular Filt Rate > 60; Glucose 99 mg/dL (65-110); Potassium 4.1 mmol/L (3.4-5.0); Sodium 145 mmol/L (137-145)
[2023-12-17 05:29] VITALS: BP 178/89; PULSE 72; RESP 15; O2SAT 95
[2023-12-17 05:31] VITALS: BP 162/85; PULSE 71; RESP 18; O2SAT 95
--- NOTE | 2023-12-17 05:37 | PC.NURSE ---
per edp dr. Torrez to administer 10mg of Labetalol. this rn used closed loop communication to confirm medication dose change. edp dr. Torrez verbalized confirmation of dose change.
[2023-12-17] MEDS: LABETALOL HCL INJ 100 MG/20 ML VIAL 20 MG IV PUSH (05:40)
[2023-12-17 05:46] VITALS: BP 134/70; PULSE 76; RESP 16; O2SAT 94
--- NOTE | 2023-12-17 05:49 | PC.NURSE ---
this rn spoke with GUIDO Boo about discharge instructions for pt. per edp dr. Torrez pt to skip morning dose of metropolol and to recheck blood pressure in 2 hours.
== END 2023-12-17 07:01 ==
PROVIDERS: Emergency Provider Emergency Medicine; PCP Internal Medicine
DX: I10 Essential (primary) hypertension (principal); I69.998 Other sequelae following unspecified cerebrovascular disease; H53.8 Other visual disturbances; S14.105S Unspecified injury at C5 level of cervical spinal cord, sequela; G82.54 Quadriplegia, C5-C7 incomplete; N31.9 Neuromuscular dysfunction of bladder, unspecified; K59.2 Neurogenic bowel, not elsewhere classified; G89.4 Chronic pain syndrome; D64.9 Anemia, unspecified; K21.9 Gastro-esophageal reflux disease without esophagitis; F17.210 Nicotine dependence, cigarettes, uncomplicated; Z86.16 Personal history of COVID-19; Z87.440 Personal history of urinary (tract) infections; Z86.718 Personal history of other venous thrombosis and embolism; Z79.899 Other long term (current) drug therapy; Z79.82 Long term (current) use of aspirin; I44.0 Atrioventricular block, first degree; R94.31 Abnormal electrocardiogram [ECG] [EKG]; I51.7 Cardiomegaly; V29.99XS Rider (driver) (passenger) of other motorcycle injured in unspecified traffic accident, sequela
CPT/HCPCS: 36415; 80053; 85025; 93005; 96374; 99284

== ENCOUNTER 2024-01-04 10:42 | Emergency (ER) | payer OTHER, SELFPAY ==
[2024-01-04] VITALS (9 sets, daily range): BP systolic 144–189; BP diastolic 65–86; PULSE 54–67; RESP 12–17; TEMP 36.8; O2SAT 93–97
--- NOTE | 2024-01-04 11:38 | ED.MALEGU ---
HPI - Male Genitourinary General Chief complaint: Urogenital-Male Stated complaint: UTI Time Seen by Provider: 01/04/24 10:50 History of Present Illness HPI Narrative: 73-year-old male quadriplegic who has a chronic suprapubic catheter presents to the emergency room for evaluation of suprapubic pain and pain to the tip of the penis. Patient states when he experiences these symptoms he typically has a urinary tract infection. States his suprapubic catheter is exchanged every 3 weeks. Most recent change was nearly 3 weeks ago. Denies fevers, abdominal pain or changes in his back pain. Related Data Home Medications Medication Instructions Recorded Confirmed Dulcolax (bisacodyl) 10 mg PO DAILY PRN Constipation 12/11/19 12/05/22 Lactobacillus acidophilus 1 tab-cap PO DAILY@1200 12/11/19 12/05/22 acetaminophen 1,000 mg PO Q6H PRN Pain 12/11/19 12/05/22 amlodipine 10 mg PO DAILY@1200 12/11/19 12/05/22 atorvastatin 80 mg tablet 80 mg PO HS 12/11/19 12/05/22 baclofen 5 mg tablet 5 mg PO TID PRN Muscle Spasm 12/11/19 12/05/22 docusate sodium 100 mg capsule 100 mg PO DAILY 12/11/19 12/05/22 (Colace) ferrous sulfate 325 mg (65 mg 325 mg PO EVERY OTHER DAY 12/11/19 12/05/22 iron) tablet folic acid 1 mg PO DAILY@1200 12/11/19 12/05/22 hydralazine 25 mg PO DAILY PRN Hypertension 12/11/19 12/05/22 lidocaine 5 % topical cream 1 applic topical Q8H PRN Pain 12/11/19 12/05/22 melatonin 10 mg tablet 10 mg PO HS PRN Insomnia 12/11/19 12/05/22 pregabalin 100 mg capsule (Lyrica) 100 mg PO BID 12/11/19 12/05/22 guaifenesin 600 mg tablet, 600 mg PO Q12H PRN Allergic 12/12/19 12/05/22 extended release 12 hr (Mucinex) Symptoms gjbgyys-vxbhvti-ghcvesudofieh 1 applic topical Q4H PRN Pain 12/12/19 12/05/22 comb#1 11 %-11 % topical cream mirabegron 25 mg tablet,extended 25 mg PO DAILY 12/12/19 12/05/22 release 24 hr polyethylene glycol 3350 17 17 g PO DAILY PRN Constipation 12/12/19 12/05/22 gram/dose oral powder (Miralax) psyllium husk 3.4 gram/5.4 gram 3.4 g PO BID 12/12/19 12/05/22 oral powder (Metamucil) sennosides 8.6 mg-docusate sodium 1 tablet PO BID 12/12/19 12/05/22 50 mg tablet (Senna Plus) simethicone 80 mg chewable tablet 125 mg PO BID PRN Indigestion 12/12/19 12/05/22 (Gas Relief (simethicone)) glycerin-mineral oil 5 ml BYMOUTH TID PRN Constipation 03/09/20 12/05/22 carboxymethylcellulose sodium 0.5 1 drp EACH EYE TID 08/29/22 12/05/22 % eye drops cholecalciferol (vitamin D3) 25 25 mcg PO DAILY 08/29/22 12/05/22 mcg (1,000 unit) capsule diclofenac sodium 1 % topical gel 2 g topical QID 08/29/22 12/05/22 duloxetine 60 mg capsule,delayed 60 mg PO DAILY 08/29/22 12/05/22 release hydralazine 50 mg tablet 50 mg PO DAILY PRN Hypertension 08/29/22 12/05/22 lidocaine 5 % topical patch 2 patch topical DAILY 08/29/22 12/05/22 (Lidoderm) lisinopril 10 mg tablet 10 mg PO DAILY 08/29/22 12/05/22 loratadine 10 mg tablet 10 mg PO DAILY 08/29/22 12/05/22 meloxicam 7.5 mg tablet 7.5 mg PO Q12H PRN Pain 08/29/22 12/05/22 naloxone 4 mg/actuation nasal spray 1 spray intranasal DIRECTED PRN 08/29/22 12/05/22 Opiate Reversal sodium phosphates 19 gram-7 118 ml RECTAL ONCE PRN Constipation 08/29/22 12/05/22 gram/118 mL enema (Fleet Enema) triamcinolone acetonide 0.1 % 1 applic topical DAILY 08/29/22 12/05/22 topical cream zinc oxide 17 %-white petrolatum 1 applic topical QSHIFT 08/29/22 12/05/22 57 % topical paste Allergies Allergy/AdvReac Type Severity Reaction Status Date / Time piperacillin Allergy Unknown Unknown Verified 09/28/23 15:47 sulfamethoxazole Allergy Unknown Unknown Verified 09/28/23 15:47 tazobactam Allergy Unknown Unknown Verified 09/28/23 15:47 tizanidine Allergy Unknown Unknown Verified 09/28/23 15:47 trimethoprim Allergy Unknown Unknown Verified 09/28/23 15:47 venlafaxine Allergy Unknown Unknown Verified 09/28/23 15:47 Review of Systems Review of Systems: ROS unremarkable except for noted
[2024-01-04 13:09] LABS: Bacteria Urine 4+ /hpf; Non Pathogenic Casts 0-2; RBC Urine 0-2 /hpf (0-2); Squamous Epithelial Cell Urine None Seen /hpf (Few)
[2024-01-04 13:16] LABS: Add Urine Microscopic? YES; Appearance Urine Clear (Clear); Bilirubin Urine Negative (Negative); Blood Urine Negative (Negative); Color Urine Yellow (Yellow); Glucose Urine UA Negative (Negative); Ketones Urine Negative (Negative); Leukocyte Esterase Ur Trace LEU/UL (Negative); Nitrate Urine Negative (Negative); Protein Urine Negative (Negative); Specific Grav Ur 1.011 (1.001-1.035); Urobilinogen Urine 0.2 mg/dL (<2.0); pH Urine 6.5 (5.0-9.0)
[2024-01-04] MEDS: WATER, STERILE FOR INJECTION 10 ML VIAL XX (14:06)
[2024-01-04] MEDS: cefTRIAXone 1 GM VIAL 0.5 GM IM (14:06)
== END 2024-01-04 21:09 ==
PROVIDERS: Emergency Provider Nurse Practitioner Family; PCP Internal Medicine
DX: N39.0 Urinary tract infection, site not specified (principal); I69.998 Other sequelae following unspecified cerebrovascular disease; H53.8 Other visual disturbances; G82.50 Quadriplegia, unspecified; S14.105S Unspecified injury at C5 level of cervical spinal cord, sequela; I10 Essential (primary) hypertension; K21.9 Gastro-esophageal reflux disease without esophagitis; N31.9 Neuromuscular dysfunction of bladder, unspecified; F32.A Depression, unspecified; F17.210 Nicotine dependence, cigarettes, uncomplicated; Z86.2 Personal history of diseases of the blood and blood-forming organs and certain disorders involving the immune mechanism; Z86.16 Personal history of COVID-19; Z86.718 Personal history of other venous thrombosis and embolism; Z79.899 Other long term (current) drug therapy; V29.99XS Rider (driver) (passenger) of other motorcycle injured in unspecified traffic accident, sequela
CPT/HCPCS: 81001; 87077; 87086; 87088; 87186; 96372; 99283; J0696

== ENCOUNTER 2024-02-12 17:23 | Emergency (ER) | payer OTHER, SELFPAY ==
--- NOTE | ~2024-02-12 | CT_ITS ---
EXAMINATION: CT brain wo con DATE: 02/12/2024 18:56 INDICATION: Altered mental status. TECHNIQUE: Computed tomography (CT) of the head was performed without intravenous contrast. The mA wa s adjusted according to patient size. Iterative reconstruction technique was employed. The dose-lengt h product was 681.00 mGy-cm. 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 There are scattered areas of low attenuatio n in the cerebral white matter, which is within normal limits for the patient's age. There is no intr acranial hemorrhage, acute infarction, or abnormal intracranial mass lesion. The ventricles are dima l in size. There is mild mucosal thickening in the paranasal sinuses. The orbits are normal. The mast oid air cells are normal. IMPRESSION: 1. 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 Reviewed, dictated and finalized at location E.
[2024-02-12 17:32] VITALS: BP 185/83; PULSE 76; RESP 16; TEMP 36.4; O2SAT 94
[2024-02-12 17:43] VITALS: O2SAT 96
--- NOTE | 2024-02-12 17:43 | ECG_ITS ---
Test Date: 2024-02-12 18:36:55 Measurements Intervals [place] Rate: 80 P: 0 UT: 0 QRS: 61 QRSD: 104 T: 51 QT: 370 QTc: 427 Interpretive Statements SINUS TACHYCARDIA BASELINE ARTIFACT LIMIT INTERPRETATION LOW QRS VOLTAGE IN EXTREMITY LEADS [QRS DEFLECTION < 0.5 mV IN LIMB LEADS] ABNORMAL RHYTHM ECG Compared to ECG 12/17/2023 05:10:11 heart rate increased Electronically Signed On 02-13-2024 13:41:22 CDT by Ari Ocampo M.D.
--- NOTE | 2024-02-12 18:09 | ED.AMS ---
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 Patient is concerned he may have a UTI and reports pain down there . He is somnolent and arousable to verbal stimuli on exam. He denies chest pain or shortness of breath, fever, nausea vomiting, diarrhea, abdominal pain. States his suprapubic catheter was last changed 2 weeks ago, normally has it changed every 3 weeks. Related Data Home Medications Medication Instructions Recorded Confirmed Dulcolax (bisacodyl) 10 mg PO DAILY PRN Constipation 12/11/19 12/05/22 Lactobacillus acidophilus 1 tab-cap PO DAILY@1200 12/11/19 12/05/22 acetaminophen 1,000 mg PO Q6H PRN Pain 12/11/19 12/05/22 amlodipine 10 mg PO DAILY@1200 12/11/19 12/05/22 atorvastatin 80 mg tablet 80 mg PO HS 12/11/19 12/05/22 baclofen 5 mg tablet 5 mg PO TID PRN Muscle Spasm 12/11/19 12/05/22 docusate sodium 100 mg capsule 100 mg PO DAILY 12/11/19 12/05/22 (Colace) ferrous sulfate 325 mg (65 mg 325 mg PO EVERY OTHER DAY 12/11/19 12/05/22 iron) tablet folic acid 1 mg PO DAILY@1200 12/11/19 12/05/22 hydralazine 25 mg PO DAILY PRN Hypertension 12/11/19 12/05/22 lidocaine 5 % topical cream 1 applic topical Q8H PRN Pain 12/11/19 12/05/22 melatonin 10 mg tablet 10 mg PO HS PRN Insomnia 12/11/19 12/05/22 pregabalin 100 mg capsule (Lyrica) 100 mg PO BID 12/11/19 12/05/22 guaifenesin 600 mg tablet, 600 mg PO Q12H PRN Allergic 12/12/19 12/05/22 extended release 12 hr (Mucinex) Symptoms sjrlhad-ppdjzha-loawrkyyttkkq 1 applic topical Q4H PRN Pain 12/12/19 12/05/22 comb#1 11 %-11 % topical cream mirabegron 25 mg tablet,extended 25 mg PO DAILY 12/12/19 12/05/22 release 24 hr polyethylene glycol 3350 17 17 g PO DAILY PRN Constipation 12/12/19 12/05/22 gram/dose oral powder (Miralax) psyllium husk 3.4 gram/5.4 gram 3.4 g PO BID 12/12/19 12/05/22 oral powder (Metamucil) sennosides 8.6 mg-docusate sodium 1 tablet PO BID 12/12/19 12/05/22 50 mg tablet (Senna Plus) simethicone 80 mg chewable tablet 125 mg PO BID PRN Indigestion 12/12/19 12/05/22 (Gas Relief (simethicone)) glycerin-mineral oil 5 ml BYMOUTH TID PRN Constipation 03/09/20 12/05/22 carboxymethylcellulose sodium 0.5 1 drp EACH EYE TID 08/29/22 12/05/22 % eye drops cholecalciferol (vitamin D3) 25 25 mcg PO DAILY 08/29/22 12/05/22 mcg (1,000 unit) capsule diclofenac sodium 1 % topical gel 2 g topical QID 08/29/22 12/05/22 duloxetine 60 mg capsule,delayed 60 mg PO DAILY 08/29/22 12/05/22 release hydralazine 50 mg tablet 50 mg PO DAILY PRN Hypertension 08/29/22 12/05/22 lidocaine 5 % topical patch 2 patch topical DAILY 08/29/22 12/05/22 (Lidoderm) lisinopril 10 mg tablet 10 mg PO DAILY 08/29/22 12/05/22 loratadine 10 mg tablet 10 mg PO DAILY 08/29/22 12/05/22 meloxicam 7.5 mg tablet 7.5 mg PO Q12H PRN Pain 08/29/22 12/05/22 naloxone 4 mg/actuation nasal spray 1 spray intranasal DIRECTED PRN 08/29/22 12/05/22 Opiate Reversal sodium phosphates 19 gram-7 118 ml RECTAL ONCE PRN Constipation 08/29/22 12/05/22 gram/118 mL enema (Fleet Enema) triamcinolone acetonide 0.1 % 1 applic topical DAILY 08/29/22 12/05/22 topical cream zinc oxide 17 %-white petrolatum 1 applic topical QSHIFT 08/29/22 12/05/22 57 % topical paste Allergies Allergy/AdvReac Type Severity Reaction Status Date / Time piperacillin Allergy Unknown Unknown Verified 09/28/23 15:47 sulfamethoxazole Allergy Unknown Unknown Verified 09/28/23 15:47 tazobactam Allergy Unknown Unknown Verified 09/28/23 15:47 tizanidine Allergy Unknown Unknown Verified 09/28/23 15:47 trimethoprim Allergy Unknown Unknow
[2024-02-12 18:41] LABS: Basophils Percent Auto 0.5 % (0.2-1.2); Eosinophils Absolute Auto 0.2 K/mm3 (0-0.3); Eosinophils Percent Auto 3.2 % (0-4.4); Hematocrit 43.7 % (42.0-52.0); Hemoglobin 13.5 g/dL (14.0-18.0); Immature Granulocyte Absolute 0.03 K/mm3 (0.00-0.031); Immature Granulocyte Percent A 0.5 % (0-0.5); Lymphocytes Absolute Auto 0.94 K/mm3 (0.9-3.2); Lymphocytes Percent Auto 15.2 % (18.3-44.2); Mean Corpuscular HGB Conc 30.9 g/dl (32-36); Mean Corpuscular Hemoglobin 29.5 pg (26-34); Mean Corpuscular Volume 95.4 fl (80-100); Mean Platelet Volume 11.3 fl (7.4-10.4); Monocytes Absolute Auto 0.8 K/mm3 (0.1-0.6); Monocytes Percent Auto 12.7 % (2.6-8.5); Neutrophils Absolute Auto 4.2 K/mm3 (1.3-6.7); Neutrophils Percent Auto 67.9 % (45.5-73.1); Platelet Count Result 155 k/mm3 (150-375); Red Blood Count 4.58 M/mm3 (4.6-6.20); Red Cell Distribution Width 14.5 % (11.5-14.5); White Blood Count 6.2 K/mm3 (4.5-10.0)
[2024-02-12 18:55] LABS: INR 1.1
[2024-02-12 18:58] LABS: Alanine Aminotransferase 19 U/L (6-50); Albumin Level 3.7 g/dL (3.5-5.1); Alkaline Phosphatase 120 U/L (38-126); Anion Gap 9 mmol/L (4-12); Aspartate Amino Transferase 27 U/L (17-59); Bilirubin,Total 0.6 mg/dL (0.2-1.3); Blood Urea Nitrogen 22 mg/dL (9-20); Calcium 8.4 mg/dL (8.4-10.2); Carbon Dioxide 29 mmol/L (22-30); Chloride 103 mmol/L (98-107); Estimated Glomerular Filt Rate > 60; Glucose 104 mg/dL (65-110); Lipase 43 U/L (23-300); Sodium 141 mmol/L (137-145)
[2024-02-12 19:10] LABS: Troponin I < 0.012 ng/mL (0.000-0.034)
[2024-02-12 20:53] VITALS: BP 174/83; PULSE 89; RESP 18; O2SAT 100
[2024-02-12 21:30] LABS: Add Urine Microscopic? YES; Appearance Urine Cloudy (Clear); Bacteria Urine 4+ /hpf; Bilirubin Urine Negative (Negative); Blood Urine Negative (Negative); Color Urine Yellow (Yellow); Glucose Urine UA Negative (Negative); Ketones Urine Negative (Negative); Leukocyte Esterase Ur 2+ LEU/UL (Negative); Need Manual Microscopic Reviewed; Nitrate Urine Positive (Negative); Protein Urine 1+ mg/dL (Negative); RBC Urine 0-2 /hpf (0-2); Specific Grav Ur 1.018 (1.001-1.035); Squamous Epithelial Cell Urine Occasional /hpf (Few); Urobilinogen Urine 0.2 mg/dL (<2.0); WBC Urine 51-100 /hpf (0-3)
--- NOTE | 2024-02-12 21:52 | ECG_ITS ---
Test Date: 2024-02-12 22:15:08 Measurements Intervals [place] Rate: 92 P: -83 IL: 259 QRS: -13 QRSD: 89 T: 72 QT: 365 QTc: 453 Interpretive Statements ARTIFACT IN LEAD(S) A Uncertain regular rhythm Compared to ECG 02/12/2024 18:36:55 comparison limited by artifacts Electronically Signed On 02-13-2024 13:43:54 CDT by Ari Ocampo M.D.
[2024-02-12 23:19] VITALS: BP 148/90; PULSE 88; RESP 18; O2SAT 100
== END 2024-02-13 00:49 ==
PROVIDERS: Emergency Provider Physician Assistant; PCP Internal Medicine
DX: N39.0 Urinary tract infection, site not specified (principal); I10 Essential (primary) hypertension; G82.50 Quadriplegia, unspecified; F17.210 Nicotine dependence, cigarettes, uncomplicated; Z86.73 Personal history of transient ischemic attack (TIA), and cerebral infarction without residual deficits
CPT/HCPCS: 36415; 70450; 80053; 81001; 83605; 83690; 84484; 85025; 85610; 85730; 87086; 87088; 93005; 96365; 99284; J0696

== ENCOUNTER 2024-02-17 16:30 | Emergency (ER) | payer OTHER, SELFPAY ==
--- NOTE | ~2024-02-17 | XR_ITS ---
EXAMINATION: XR chest 1V portable DATE: 02/17/2024 17:21 INDICATION: Feeling sick. Numbness. Urinary tract infection. TECHNIQUE: frontal view of the chest was obtained. COMPARISON: Chest radiograph dated 12/04/[address] dated 09/28/2023 FINDINGS: Unchanged opacities at the bilateral lower lung zones. Volume loss and inferomedial retraction of the right major fissure. No new airspace opacities, pulmonary edema, pneumothorax or definitive pleural effusion. Heart size is normal for AP technique. IMPRESSION: 1. Stable appearance of chronic opacities at the bilateral lower lung zones consistent with atelectas is/scarring with persistent associated volume loss in the right lower lobe. Reviewed, dictated and finalized at location A. IMPRESSION: 1. Stable appearance of chronic opacities at the bilateral lower lung zones con sistent with atelectasis/scarring with persistent associated volume loss in the right lower lobe.
[2024-02-17 16:41] VITALS: BP 169/77; PULSE 71; RESP 15; TEMP 36.5; O2SAT 98
--- NOTE | 2024-02-17 17:13 | ED.GENADULT ---
HPI - General Adult General Chief complaint: Urogenital-Male Stated complaint: i feel like i have a uti Time Seen by Provider: 02/17/24 16:32 History of Present Illness HPI narrative: 73 old male presenting to the emergency department for evaluation of feeling foggy headed. Patient states that he does have an indwelling suprapubic Martínez catheter and had his catheter changed just 2 days ago. Patient states he has been on antibiotics of for the last 4 days. Patient denies any associated nausea vomiting abdominal pain, chest pain, shortness of breath, fevers or chills. Related Data Home Medications Medication Instructions Recorded Confirmed Dulcolax (bisacodyl) 10 mg PO DAILY PRN Constipation 12/11/19 12/05/22 Lactobacillus acidophilus 1 tab-cap PO DAILY@1200 12/11/19 12/05/22 acetaminophen 1,000 mg PO Q6H PRN Pain 12/11/19 12/05/22 amlodipine 10 mg PO DAILY@1200 12/11/19 12/05/22 atorvastatin 80 mg tablet 80 mg PO HS 12/11/19 12/05/22 baclofen 5 mg tablet 5 mg PO TID PRN Muscle Spasm 12/11/19 12/05/22 docusate sodium 100 mg capsule 100 mg PO DAILY 12/11/19 12/05/22 (Colace) ferrous sulfate 325 mg (65 mg 325 mg PO EVERY OTHER DAY 12/11/19 12/05/22 iron) tablet folic acid 1 mg PO DAILY@1200 12/11/19 12/05/22 hydralazine 25 mg PO DAILY PRN Hypertension 12/11/19 12/05/22 lidocaine 5 % topical cream 1 applic topical Q8H PRN Pain 12/11/19 12/05/22 melatonin 10 mg tablet 10 mg PO HS PRN Insomnia 12/11/19 12/05/22 pregabalin 100 mg capsule (Lyrica) 100 mg PO BID 12/11/19 12/05/22 guaifenesin 600 mg tablet, 600 mg PO Q12H PRN Allergic 12/12/19 12/05/22 extended release 12 hr (Mucinex) Symptoms [id number]-[id number] 1 applic topical Q4H PRN Pain 12/12/19 12/05/22 comb#1 11 %-11 % topical cream mirabegron 25 mg tablet,extended 25 mg PO DAILY 12/12/19 12/05/22 release 24 hr polyethylene glycol 3350 17 17 g PO DAILY PRN Constipation 12/12/19 12/05/22 gram/dose oral powder (Miralax) psyllium husk 3.4 gram/5.4 gram 3.4 g PO BID 12/12/19 12/05/22 oral powder (Metamucil) sennosides 8.6 mg-docusate sodium 1 tablet PO BID 12/12/19 12/05/22 50 mg tablet (Senna Plus) simethicone 80 mg chewable tablet 125 mg PO BID PRN Indigestion 12/12/19 12/05/22 (Gas Relief (simethicone)) glycerin-mineral oil 5 ml BYMOUTH TID PRN Constipation 03/09/20 12/05/22 carboxymethylcellulose sodium 0.5 1 drp EACH EYE TID 08/29/22 12/05/22 % eye drops cholecalciferol (vitamin D3) 25 25 mcg PO DAILY 08/29/22 12/05/22 mcg (1,000 unit) capsule diclofenac sodium 1 % topical gel 2 g topical QID 08/29/22 12/05/22 duloxetine 60 mg capsule,delayed 60 mg PO DAILY 08/29/22 12/05/22 release hydralazine 50 mg tablet 50 mg PO DAILY PRN Hypertension 08/29/22 12/05/22 lidocaine 5 % topical patch 2 patch topical DAILY 08/29/22 12/05/22 (Lidoderm) lisinopril 10 mg tablet 10 mg PO DAILY 08/29/22 12/05/22 loratadine 10 mg tablet 10 mg PO DAILY 08/29/22 12/05/22 meloxicam 7.5 mg tablet 7.5 mg PO Q12H PRN Pain 08/29/22 12/05/22 naloxone 4 mg/actuation nasal spray 1 spray intranasal DIRECTED PRN 08/29/22 12/05/22 Opiate Reversal sodium phosphates 19 gram-7 118 ml RECTAL ONCE PRN Constipation 08/29/22 12/05/22 gram/118 mL enema (Fleet Enema) triamcinolone acetonide 0.1 % 1 applic topical DAILY 08/29/22 12/05/22 topical cream zinc oxide 17 %-white petrolatum 1 applic topical QSHIFT 08/29/22 12/05/22 57 % topical paste Allergies Allergy/AdvReac Type Severity Reaction Status Date / Time piperacillin Allergy Unknown Unknown Verified 09/28/23 15:47 sulfamethoxazole Allergy Unknown Unknown Verified 09/28/23 15:47 tazobactam Allergy Unknown Unknown Verified 09/28/23 15:47 tizanidine Allergy Unknown Unknown Verified 09/28/23 15:47 trimethoprim Allergy Unknown Unknown Verified 09/28/23 15:47 venlafaxine Allergy Unknown Unknown Verified 09/28/23 15:47 Review of Systems Review of Systems: All systems reviewed & are unremarkable except as noted in HP
[2024-02-17 17:31] LABS: Basophils Percent Auto 0.4 % (0.2-1.2); Eosinophils Absolute Auto 0.2 K/mm3 (0-0.3); Eosinophils Percent Auto 3.6 % (0-4.4); Hematocrit 39.4 % (42.0-52.0); Hemoglobin 12.6 g/dL (14.0-18.0); Immature Granulocyte Absolute 0.03 K/mm3 (0.00-0.031); Immature Granulocyte Percent A 0.5 % (0-0.5); Lymphocytes Absolute Auto 0.69 K/mm3 (0.9-3.2); Lymphocytes Percent Auto 12.5 % (18.3-44.2); Mean Corpuscular Hemoglobin 29.9 pg (26-34); Mean Corpuscular Volume 93.6 fl (80-100); Mean Platelet Volume 10.9 fl (7.4-10.4); Monocytes Absolute Auto 0.6 K/mm3 (0.1-0.6); Platelet Count Result 161 k/mm3 (150-375); Red Blood Count 4.21 M/mm3 (4.6-6.20); Red Cell Distribution Width 14.2 % (11.5-14.5); White Blood Count 5.5 K/mm3 (4.5-10.0)
[2024-02-17 17:39] VITALS: BP 182/77; PULSE 74; RESP 18; O2SAT 98
[2024-02-17 17:40] LABS: Alanine Aminotransferase 20 U/L (6-50); Albumin Level 3.7 g/dL (3.5-5.1); Alkaline Phosphatase 110 U/L (38-126); Anion Gap 5 mmol/L (4-12); Aspartate Amino Transferase 27 U/L (17-59); Bilirubin,Total 0.3 mg/dL (0.2-1.3); Blood Urea Nitrogen 18 mg/dL (9-20); Calcium 8.3 mg/dL (8.4-10.2); Carbon Dioxide 32 mmol/L (22-30); Chloride 102 mmol/L (98-107); Estimated CRCL calculation 64 ml/min; Estimated Glomerular Filt Rate > 60; Glucose 111 mg/dL (65-110); Potassium 3.9 mmol/L (3.4-5.0); Sodium 139 mmol/L (137-145)
[2024-02-17 17:53] LABS: Add Urine Microscopic? YES; Appearance Urine Cloudy (Clear); Bacteria Urine 1+ /hpf; Bilirubin Urine Negative (Negative); Blood Urine 1+ (Negative); Color Urine Yellow (Yellow); Glucose Urine UA Negative (Negative); Ketones Urine Negative (Negative); Leukocyte Esterase Ur 2+ LEU/UL (Negative); Nitrate Urine Negative (Negative); Protein Urine 1+ mg/dL (Negative); Specific Grav Ur 1.018 (1.001-1.035); Squamous Epithelial Cell Urine Few /hpf (Few); Urobilinogen Urine 0.2 mg/dL (<2.0); WBC Urine 51-100 /hpf (0-3); pH Urine 5.5 (5.0-9.0)
[2024-02-17 18:07] LABS: Influenza A QL RT-PCR Negative (Negative); Influenza B QL RT-PCR Negative (Negative); RSV RNA, RT-PCR Negative (Negative); SARS-CoV-2 RNA PCR Negative (Negative)
== END 2024-02-17 18:38 ==
PROVIDERS: Emergency Provider Emergency Medicine; PCP Internal Medicine
DX: R82.998 Other abnormal findings in urine (principal); Z20.822 Contact with and (suspected) exposure to COVID-19; D64.9 Anemia, unspecified; F32.A Depression, unspecified; I10 Essential (primary) hypertension; K21.9 Gastro-esophageal reflux disease without esophagitis
CPT/HCPCS: 36415; 71045; 80053; 81001; 85025; 87077; 87086; 87088; 87186; 87637; 99283

== ENCOUNTER 2024-03-09 14:49 | Emergency (ER) | payer OTHER, SELFPAY ==
--- NOTE | ~2024-03-09 | CT_ITS ---
EXAMINATION: CT abdomen pelvis wo con DATE: 03/09/2024 17:31 INDICATION: Recurrent urinary tract infection. Flank pain. TECHNIQUE: Computed tomography (CT) of the abdomen and pelvis was performed without intravenous contr ast. Automated exposure control and iterative reconstruction technique were employed. The dose-length product was 1061.84 mGy-cm. COMPARISON: CT abdomen and pelvis 09/28/2023 FINDINGS: The visualized portions of the lung bases demonstrate calcified pleural plaques bilaterally , which may be seen with asbestos exposure. There is mild atelectasis bilaterally. There is chronic p eripheral lung disease bilaterally, worst in right lower lobe, consistent with asbestosis. There is a 4 mm nodule in left lower lobe, likely benign. No pleural effusion. The heart size is normal. No per icardial effusion. There are coronary artery calcifications. There is an 18 mm cyst in the liver. The re are gallstones in the gallbladder, which is normal in size. The spleen, pancreas, and adrenal glan ds are normal. There is an 8 mm cyst in right kidney. There is cortical thinning of left kidney. Ther e is no urolithiasis. There is a suprapubic catheter in expected position. There are chronic wall thi ckening of the bladder. The prostate is mildly enlarged. There is a filter in the inferior vena cava. There are embolization coils in the area of the gastroduodenal artery. There is a large volume of st ool in the colon. Sigmoid colon is distended, likely adynamic ileus. The appendix is normal. There ar e no pathologically enlarged lymph nodes. There is no free intraperitoneal fluid. There are subcutane ous electrodes in right lower back. An intrathecal catheter is noted. There is mild thoracic and lumb ar spondylosis. IMPRESSION: 1. Distention of the sigmoid colon, likely adynamic ileus. Large volume of stool in the colon. 2. Chronic wall thickening of the bladder, which may be secondary to cystitis or chronic outlet obstr uction. Reviewed, dictated and finalized at location A. IMPRESSION: 1. Distention of the sigmoid colon, likely adynamic ileus. Large volume of stoo l in the colon. 2. Chronic wall thickening of the bladder, which may be secondary to cystitis o r chronic outlet obstruction.
[2024-03-09 15:15] LABS: Add Urine Microscopic? YES; Appearance Urine Cloudy (Clear); Bacteria Urine 4+ /hpf; Bilirubin Urine Negative (Negative); Blood Urine 2+ (Negative); Color Urine Yellow (Yellow); Glucose Urine UA Negative (Negative); Ketones Urine Negative (Negative); Leukocyte Esterase Ur 3+ LEU/UL (Negative); Nitrate Urine Positive (Negative); Non Pathogenic Casts 0-2; Protein Urine Trace mg/dL (Negative); RBC Urine 0-2 /hpf (0-2); Specific Grav Ur 1.012 (1.001-1.035); Squamous Epithelial Cell Urine None Seen /hpf (Few); Urobilinogen Urine 0.2 mg/dL (<2.0); WBC Urine 51-100 /hpf (0-3); pH Urine 5.5 (5.0-9.0)
[2024-03-09 15:16] VITALS: BP 162/74; PULSE 73; RESP 16; TEMP 36.7; O2SAT 98
--- NOTE | 2024-03-09 16:51 | ED.MALEGU ---
HPI - Male Genitourinary General Chief complaint: Urogenital-Male Stated complaint: I think I have a UTI Time Seen by Provider: 03/09/24 16:40 Source: patient Mode of arrival: wheelchair Limitations: physical limitation History of Present Illness HPI Narrative: 74-year-old male presents with concern that he has urinary tract infection. He has a chronic indwelling Martínez that was changed every 3 weeks at the alf where he resides. It was changed a few days ago but he states the urine is cloudy he has pain at his urethra. He denies any fevers. He does state that he chronically experiences flank pain he attributes this to SI joint dysfunction. He has an indwelling baclofen pump. Denies any history of kidney stones. Related Data Home Medications Medication Instructions Recorded Confirmed Dulcolax (bisacodyl) 10 mg PO DAILY PRN Constipation 12/11/19 12/05/22 Lactobacillus acidophilus 1 tab-cap PO DAILY@1200 12/11/19 12/05/22 acetaminophen 1,000 mg PO Q6H PRN Pain 12/11/19 12/05/22 amlodipine 10 mg PO DAILY@1200 12/11/19 12/05/22 atorvastatin 80 mg tablet 80 mg PO HS 12/11/19 12/05/22 baclofen 5 mg tablet 5 mg PO TID PRN Muscle Spasm 12/11/19 12/05/22 docusate sodium 100 mg capsule 100 mg PO DAILY 12/11/19 12/05/22 (Colace) ferrous sulfate 325 mg (65 mg 325 mg PO EVERY OTHER DAY 12/11/19 12/05/22 iron) tablet folic acid 1 mg PO DAILY@1200 12/11/19 12/05/22 hydralazine 25 mg PO DAILY PRN Hypertension 12/11/19 12/05/22 lidocaine 5 % topical cream 1 applic topical Q8H PRN Pain 12/11/19 12/05/22 melatonin 10 mg tablet 10 mg PO HS PRN Insomnia 12/11/19 12/05/22 pregabalin 100 mg capsule (Lyrica) 100 mg PO BID 12/11/19 12/05/22 guaifenesin 600 mg tablet, 600 mg PO Q12H PRN Allergic 12/12/19 12/05/22 extended release 12 hr (Mucinex) Symptoms [id number]-[id number]-[id number] 1 applic topical Q4H PRN Pain 12/12/19 12/05/22 comb#1 11 %-11 % topical cream mirabegron 25 mg tablet,extended 25 mg PO DAILY 12/12/19 12/05/22 release 24 hr polyethylene glycol 3350 17 17 g PO DAILY PRN Constipation 12/12/19 12/05/22 gram/dose oral powder (Miralax) psyllium husk 3.4 gram/5.4 gram 3.4 g PO BID 12/12/19 12/05/22 oral powder (Metamucil) sennosides 8.6 mg-docusate sodium 1 tablet PO BID 12/12/19 12/05/22 50 mg tablet (Senna Plus) simethicone 80 mg chewable tablet 125 mg PO BID PRN Indigestion 12/12/19 12/05/22 (Gas Relief (simethicone)) glycerin-mineral oil 5 ml BYMOUTH TID PRN Constipation 03/09/20 12/05/22 carboxymethylcellulose sodium 0.5 1 drp EACH EYE TID 08/29/22 12/05/22 % eye drops cholecalciferol (vitamin D3) 25 25 mcg PO DAILY 08/29/22 12/05/22 mcg (1,000 unit) capsule diclofenac sodium 1 % topical gel 2 g topical QID 08/29/22 12/05/22 duloxetine 60 mg capsule,delayed 60 mg PO DAILY 08/29/22 12/05/22 release hydralazine 50 mg tablet 50 mg PO DAILY PRN Hypertension 08/29/22 12/05/22 lidocaine 5 % topical patch 2 patch topical DAILY 08/29/22 12/05/22 (Lidoderm) lisinopril 10 mg tablet 10 mg PO DAILY 08/29/22 12/05/22 loratadine 10 mg tablet 10 mg PO DAILY 08/29/22 12/05/22 meloxicam 7.5 mg tablet 7.5 mg PO Q12H PRN Pain 08/29/22 12/05/22 naloxone 4 mg/actuation nasal spray 1 spray intranasal DIRECTED PRN 08/29/22 12/05/22 Opiate Reversal sodium phosphates 19 gram-7 118 ml RECTAL ONCE PRN Constipation 08/29/22 12/05/22 gram/118 mL enema (Fleet Enema) triamcinolone acetonide 0.1 % 1 applic topical DAILY 08/29/22 12/05/22 topical cream zinc oxide 17 %-white petrolatum 1 applic topical QSHIFT 08/29/22 12/05/22 57 % topical paste Allergies Allergy/AdvReac Type Severity Reaction Status Date / Time piperacillin Allergy Unknown Unknown Verified 09/28/23 15:47 sulfamethoxazole Allergy Unknown Unknown Verified 09/28/23 15:47 tazobactam Allergy Unknown Unknown Verified 09/28/23 15:47 tizanidine Allergy Unknown Unknown Verified 09/28/23 15:47 trimethoprim Allergy Unknown Unknown Verified 09/28/23 15:47 venlaf
[2024-03-09] MEDS: NITROFURANTOIN MONOHYD MACROCR 100 MG CAP PO (18:35)
[2024-03-09 18:42] VITALS: BP 140/67; PULSE 72; RESP 17; TEMP 36.7; O2SAT 98
== END 2024-03-09 18:29 ==
PROVIDERS: Physician Assistant; Emergency Provider Student in an Organized Health Care Education/Training Program; PCP Internal Medicine
DX: T83.511A Infection and inflammatory reaction due to indwelling urethral catheter, initial encounter (principal); N39.0 Urinary tract infection, site not specified; Y84.6 Urinary catheterization as the cause of abnormal reaction of the patient, or of later complication, without mention of misadventure at the time of the procedure; N31.9 Neuromuscular dysfunction of bladder, unspecified; I10 Essential (primary) hypertension; G82.54 Quadriplegia, C5-C7 incomplete; K21.9 Gastro-esophageal reflux disease without esophagitis; K59.2 Neurogenic bowel, not elsewhere classified; I69.312 Visuospatial deficit and spatial neglect following cerebral infarction; D64.9 Anemia, unspecified; G89.4 Chronic pain syndrome; F32.A Depression, unspecified; Z79.1 Long term (current) use of non-steroidal anti-inflammatories (NSAID)
CPT/HCPCS: 74176; 81001; 87077; 87086; 87088; 87186; 99284; A9270

== ENCOUNTER 2024-04-01 06:37 | Inpatient (IN) | payer OTHER, SELFPAY ==
[2024-04-01] VITALS (8 sets, daily range): BP systolic 131–164; BP diastolic 7–84; PULSE 76–102; RESP 16–24; TEMP 36.5–36.8; O2SAT 96–97; BMI 25.1
--- NOTE | ~2024-04-01 | XR_ITS ---
XR chest 2V 04/01/2024 07:43 Indication: Weakness. Body pain. Procedure: 2 view chest Comparison: Comparison to multiple prior studies sequentially, with oldest reviewed study dated 06/05. Findings: Cardiomegaly. Bibasilar airspace disease, right greater than left. Small pleural effusions. The lungs are hyperinflated which is consistent with, but not diagnostic of chronic obstructive pulm onary disease. There are degenerative changes of the glenohumeral joints. Impression: 1: Bibasilar airspace disease, suspicious for pneumonia. Reviewed, dictated and finalized at location B. Impression: 1: Bibasilar airspace disease, suspicious for pneumonia.
--- NOTE | ~2024-04-01 | XR_ITS ---
XR chest 1V portable 04/02/2024 09:31 Indication: Abnormal x-ray Procedure: AP portable chest Comparison: 04/01/2024 and 02/17/2024 Findings: Right basilar airspace disease. Elevated right diaphragm. Possible small right effusion. Th ere is fissural thickening on the right. There is interstitial infiltrates of the left midlung. Impression: 1: Bilateral infiltrates, right greater than left, most confluent in the right lung base, suspicious for pneumonia. Reviewed, dictated and finalized at location B. Impression: 1: Bilateral infiltrates, right greater than left, most confluent in the right lung base, suspicious for pneumonia.
--- NOTE | ~2024-04-01 | CT_ITS ---
EXAMINATION: CT abdomen pelvis wo con DATE: 04/04/2024 15:06 INDICATION: ABD pain/C-diff TECHNIQUE: Computed tomography (CT) of the abdomen and pelvis was performed without intravenous contr ast. Automated exposure control and iterative reconstruction technique were employed. The dose-length product was 1193.14 mGy-cm. COMPARISON: 03/09/2024. FINDINGS: Lower thorax: Bibasilar scar. Bilateral pleural thickening with calcification. Subsegmental right med ial basilar consolidation. Liver: Right liver lobe cyst. Biliary/Gallbladder: Cholelithiasis. No bile duct dilation. Pancreas: No mass or duct dilation. Spleen: Normal. Adrenals:No mass. Kidneys: No suspicious mass, obstructing stone, or hydronephrosis. 8mm right midpole cyst. GI tract: No small bowel dilation. Mild distal sigmoid and rectal wall thickening. Dilated proximal a nd mid sigmoid with a smooth transition point at the beginning of the sigmoid wall thickening. No obs tructing mass detected. Stable mild appendix dilation without surrounding inflammatory change. Mesentery/Peritoneum: No ascites, mass, or free air. Retroperitoneum: No mass. Atherosclerotic abdominal aortic and/or arterial calcifications. IVC filter . Upper abdominal embolization coils. Pelvis: Urinary bladder drained by a Martínez catheter. Persistent moderate urinary bladder wall thicken ing. Mild prostatomegaly with calcification. Presacral edema. Soft Tissues: Right lateral lower abdominal stenotic pack, leads terminate in the posterior soft tiss ues superficial to the right SI joint. Left lateral lower abdominal drug pump with intrathecal cathet er. Bones: No acute osseous finding. IMPRESSION: Segmental right medial basal atelectasis/consolidation. Bibasilar scarring. Asbestos related pleural disease. Distal sigmoid and rectal wall thickening may reflect a component of infectious, inflammatory, or isc hemic colitis/proctitis. Moderate dilation of the more proximal and mid sigmoid, increased since the prior examination. Cystitis versus wall thickening from incomplete urinary bladder distention. Reviewed, dictated and finalized at location K. IMPRESSION: Segmental right medial basal atelectasis/consolidation. Bibasilar scarring. Asb estos related pleural disease. Distal sigmoid and rectal wall thickening may reflect a component of infectious , inflammatory, or ischemic colitis/proctitis. Moderate dilation of the more pr oximal and mid sigmoid, increased since the prior examination. Cystitis versus wall thickening from incomplete urinary bladder distention.
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
[2024-04-01 07:43] LABS: Add Urine Microscopic? YES; Appearance Urine Cloudy (Clear); Bacteria Urine 4+ /hpf; Bilirubin Urine Negative (Negative); Blood Urine 1+ (Negative); Budding Yeast Urine Present /hpf; Color Urine Yellow (Yellow); Glucose Urine UA Negative (Negative); Ketones Urine Negative (Negative); Leukocyte Esterase Ur 3+ LEU/UL (Negative); Nitrate Urine Positive (Negative); Protein Urine 3+ mg/dL (Negative); Specific Grav Ur 1.023 (1.001-1.035); Squamous Epithelial Cell Urine Occasional /hpf (Few); WBC Urine >100 /hpf (0-3); pH Urine 6.5 (5.0-9.0)
[2024-04-01 08:05] LABS: Basophils Percent Auto 0.2 % (0.2-1.2); Hematocrit 39.4 % (42.0-52.0); Hemoglobin 12.5 g/dL (14.0-18.0); Immature Granulocyte Absolute 0.21 K/mm3 (0.00-0.031); Lymphocytes Absolute Auto 0.74 K/mm3 (0.9-3.2); Lymphocytes Percent Auto 3.5 % (18.3-44.2); Mean Corpuscular HGB Conc 31.7 g/dl (32-36); Mean Corpuscular Hemoglobin 29.8 pg (26-34); Mean Corpuscular Volume 93.8 fl (80-100); Mean Platelet Volume 11.5 fl (7.4-10.4); Monocytes Absolute Auto 1.2 K/mm3 (0.1-0.6); Monocytes Percent Auto 5.7 % (2.6-8.5); Neutrophils Absolute Auto 18.7 K/mm3 (1.3-6.7); Neutrophils Percent Auto 89.6 % (45.5-73.1); Platelet Count Result 144 k/mm3 (150-375); Red Cell Distribution Width 15.3 % (11.5-14.5); White Blood Count 20.9 K/mm3 (4.5-10.0)
[2024-04-01] MEDS: SODIUM CHLORIDE 0.9% IV 1,000 ML 999 ML IV CONT (08:06)
[2024-04-01 08:33] LABS: Alanine Aminotransferase 22 U/L (6-50); Albumin Level 3.8 g/dL (3.5-5.1); Alkaline Phosphatase 106 U/L (38-126); Anion Gap 7 mmol/L (4-12); Aspartate Amino Transferase 35 U/L (17-59); Bilirubin,Total 1.3 mg/dL (0.2-1.3); Blood Urea Nitrogen 30 mg/dL (9-20); Carbon Dioxide 31 mmol/L (22-30); Chloride 102 mmol/L (98-107); Estimated CRCL calculation 74 ml/min; Estimated Glomerular Filt Rate > 60; Glucose 106 mg/dL (65-110); Potassium 3.5 mmol/L (3.4-5.0); Sodium 140 mmol/L (137-145)
[2024-04-01] MEDS: levoFLOXacin 750 MG/D5W 150 ML 750 MG/150 ML BAG 100 MG IVPB (08:42)
[2024-04-01 08:44] LABS: CRP 25.9 mg/dL (<1.0)
[2024-04-01 08:47] LABS: Platelet Estimate Adequate (Adequate)
[2024-04-01 08:48] LABS: Anisocytosis 1+; Poikilocytosis 1+; Schistocytes None Seen
[2024-04-01] MEDS: MEROPENEM 1 GM/NS 100 ML 1 GM/100 ML BAG IVPB ×2 (12:18→16:20)
[2024-04-01] MEDS: SODIUM CHLORIDE 0.9% IV 1,000 ML 125 ML IV CONT ×2 (12:30→21:37)
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
[2024-04-01 14:49] LABS: Influenza A QL RT-PCR Negative (Negative); Influenza B QL RT-PCR Negative (Negative); SARS-CoV-2 RNA PCR Negative (Negative)
[2024-04-01 15:23] LABS: MRSA (PCR) DETECTED (NOT DETECTE)
[2024-04-01] MEDS: SENNA/DOCUSATE SODIUM TABLET 1 TAB PO (19:09)
[2024-04-01] MEDS: PSYLLIUM POWDER PACKET 1 PACKET PO (19:09)
[2024-04-01] MEDS: PREGABALIN (*CRX) 50 MG CAPSULE 100 MG PO (19:09)
--- NOTE | 2024-04-01 19:34 | ADMGEN ---
This patient, Tai Amado, was admitted to Medical Room 247-. Patient/family oriented to hospital policies and general routines including ID bracelet, bed and alarms, visiting hours, pain management, procedures, bathroom and other care routines, personal items, smoking policy, room service/diet, and visiting hours. Information on how to activate the Rapid Response Team has been discussed. Patient/Family are encouraged to report perceived risks to care and to ask questions if they do not understand what they are told or what they should do.
[2024-04-01] MEDS: ZINC OXIDE 20% OINT 30 GM TUBE 1 APPLIC TOPICAL (21:38)
[2024-04-01] MEDS: MUPIROCIN 2% OINT 22 GM TUBE 1 APPLIC EACH NARE (21:38)
[2024-04-01] MEDS: METOPROLOL TARTRATE 25 MG TABLET PO (21:38)
[2024-04-02] MEDS: MEROPENEM 1 GM/NS 100 ML 1 GM/100 ML BAG IVPB ×3 (00:02→17:38)
[2024-04-02 05:50] LABS: Hematocrit 36.5 % (42.0-52.0); Hemoglobin 11.5 g/dL (14.0-18.0); Immature Platelet Fraction Pct 6.4 % (0.9-11.2); Mean Corpuscular HGB Conc 31.5 g/dl (32-36); Mean Corpuscular Volume 95.3 fl (80-100); Mean Platelet Volume 11.2 fl (7.4-10.4); Platelet Count Result 130 k/mm3 (150-375); Red Blood Count 3.83 M/mm3 (4.6-6.20); Red Cell Distribution Width 15.4 % (11.5-14.5); White Blood Count 11.2 K/mm3 (4.5-10.0)
[2024-04-02 06:00] VITALS: BP 163/75; PULSE 82; RESP 18; TEMP 36.1; O2SAT 98
[2024-04-02 06:01] LABS: Anion Gap 7 mmol/L (4-12); Blood Urea Nitrogen 20 mg/dL (9-20); Calcium 7.6 mg/dL (8.4-10.2); Carbon Dioxide 28 mmol/L (22-30); Chloride 102 mmol/L (98-107); Estimated CRCL calculation 74 ml/min; Estimated Glomerular Filt Rate > 60; Glucose 107 mg/dL (65-110); Magnesium 2.1 mg/dL (1.6-2.3); Potassium 3.2 mmol/L (3.4-5.0); Sodium 137 mmol/L (137-145)
[2024-04-02] MEDS: POTASSIUM CHLORIDE 20 MEQ ER TABLET 40 MEQ PO (09:58)
[2024-04-02] MEDS: LORATADINE 10 MG TABLET PO (09:58)
[2024-04-02] MEDS: PREGABALIN (*CRX) 50 MG CAPSULE 100 MG PO ×2 (09:58→17:38)
[2024-04-02] MEDS: MIRABEGRON 25 MG ER TABLET PO (09:58)
[2024-04-02] MEDS: ASCORBIC ACID 500 MG TABLET PO (09:58)
[2024-04-02 09:59] VITALS: PULSE 82
[2024-04-02] MEDS: FERROUS SULFATE 325 MG TABLET DR PO (09:59)
[2024-04-02] MEDS: METOPROLOL TARTRATE 25 MG TABLET PO ×2 (09:59→21:03)
[2024-04-02] MEDS: ENOXAPARIN 40 MG/0.4 ML SYRINGE SUB-Q (10:01)
[2024-04-02] MEDS: THERAPEUTIC MULTIVITAMINS/MINERALS TAB (*BKC) 1 TABLET PO (10:14)
[2024-04-02] MEDS: ZINC OXIDE 20% OINT 30 GM TUBE 1 APPLIC TOPICAL (10:15)
[2024-04-02] MEDS: MUPIROCIN 2% OINT 22 GM TUBE 1 APPLIC EACH NARE ×2 (10:19→21:04)
[2024-04-02 11:20] LABS: Toxigenic C. Diff POSITIVE (NEGATIVE)
[2024-04-02] MEDS: DOXYCYCLINE HYCLATE 100 MG TABLET PO ×2 (11:49→21:03)
[2024-04-02] MEDS: FOLIC ACID 1 MG TABLET PO (11:49)
[2024-04-02] MEDS: PANTOPRAZOLE 40 MG TABLET PO (11:49)
[2024-04-02] MEDS: VANCOMYCIN 1,250 MG/NS 250 ML 1,250 MG/250 ML BAG 166.67 MG IVPB (11:50)
[2024-04-02] MEDS: VANCOMYCIN 1,000 MG/NS 250 ML 1,000 MG/250 ML BAG 250 MG IVPB (13:16)
--- NOTE | 2024-04-02 13:36 | P.PNIM_ITS ---
Progress Note: A&P Assessment and Plan (1) Urinary tract infection due to extended-spectrum beta lactamase (ESBL) producing Escherichia coli: Code(s): N39.0 - Urinary tract infection, site not specified; B96.29 - Other Escherichia coli [E. 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 * sputum culture ordered * respiratory panel leg, dalila, and pneumo ordered * doxycycline and meropenem (if suspected staph cover with vancomycin until sputum culture negative) MRSA nares positive gave one dose of Vancomycin however D/C after c-diff positive and patient asymptomatic. * supplemental oxygen therapy to maintain oxygen 92%: Currently on RA * IV fluids * blood cultures NGTD (3) C. difficile diarrhea: Code(s): A04.72 - Enterocolitis due to Clostridium difficile, not specified as recurrent Status: Acute Assessment and Plan: * Likely secondary to recent ABX therapy * vancomycin p.o. * Protonix * IV fluids * monitor electrolytes replace as needed especially potassium and magnesium * Holding stool softeners (4) Chronic pain syndrome: Code(s): G89.4 - Chronic pain syndrome Status: Acute Assessment and Plan: * Baclofen pump resumed Plan Code status: Full code per patient DVT prophylaxis: Lovenox Stress ulcer prophylaxis: Protonix 40 daily PT/OT notes: PT/OT pending Disposition: Patient was admitted to the medical unit with diagnosis of UTI, pneumonia, and C-diff urine culture and blood cultures pending. [facility] plan will be to return at discharge when medically stable Time Spent With Patient Time with patient: 15 - 25 minutes Subjective Date/time seen: 04/02/24 13:36 Interval history: Patient is 74-year-old male admitted to medical unit for, pneumonia, UTI, and C-diff 04/02/24: Assumed Care Patient feeling a little better today, but still with diarrhea and weakness. Patient denied CP, SOB, fever or chills. Did report mild pubic pain at suprapubic catheter site. Review of Systems Review of Systems: All systems reviewed & are unremarkable except as noted in HPI and below Exam Narrative: General:?Pleasant male in no acute distress alert and oriented x 3 Neck:??Supple. Respiratory:?Respirations are nonlabored and lungs are clear to auscultation. Cardiovascular:??Regular rate and rhythm with S1-S2. 3/6 systolic murmur at the left upper sternal border. Gastrointestinal:??Abdomen is soft and protuberant with positive bowel sounds. Suprapubic catheter in place. Genitourinary:?Yellow slightly cloudy urine in t
--- NOTE | 2024-04-02 13:36 | PM.IMPN ---
Progress Note: A&P Assessment and Plan (1) Urinary tract infection due to extended-spectrum beta lactamase (ESBL) producing Escherichia coli: Code(s): N39.0 - Urinary tract infection, site not specified; B96.29 - Other Escherichia coli [E. 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 sputum culture ordered respiratory panel leg, dalila, and pneumo ordered doxycycline and meropenem (if suspected staph cover with vancomycin until sputum culture negative) MRSA nares positive gave one dose of Vancomycin however D/C after c-diff positive and patient asymptomatic. supplemental oxygen therapy to maintain oxygen 92%: Currently on RA IV fluids blood cultures NGTD (3) C. difficile diarrhea: Code(s): A04.72 - Enterocolitis due to Clostridium difficile, not specified as recurrent Status: Acute Assessment and Plan: Likely secondary to recent ABX therapy vancomycin p.o. Protonix IV fluids monitor electrolytes replace as needed especially potassium and magnesium Holding stool softeners (4) Chronic pain syndrome: Code(s): G89.4 - Chronic pain syndrome Status: Acute Assessment and Plan: Baclofen pump resumed Plan Code status: Full code per patient DVT prophylaxis: Lovenox Stress ulcer prophylaxis: Protonix 40 daily PT/OT notes: PT/OT pending Disposition: Patient was admitted to the medical unit with diagnosis of UTI, pneumonia, and C-diff urine culture and blood cultures pending. patient is from a custodial facility plan will be to return at discharge when medically stable Time Spent With Patient Time with patient: 15 - 25 minutes Subjective Date/time seen: 04/02/24 13:36 Interval history: Patient is 74-year-old male admitted to medical unit for, pneumonia, UTI, and C-diff 04/02/24: Assumed Care Patient feeling a little better today, but still with diarrhea and weakness. Patient denied CP, SOB, fever or chills. Did report mild pubic pain at suprapubic catheter site. Review of Systems Review of Systems: All systems reviewed & are unremarkable except as noted in HPI and below Exam Narrative: General:?Pleasant male in no acute distress alert and oriented x 3 Neck:??Supple. Respiratory:?Respirations are nonlabored and lungs are clear to auscultation. Cardiovascular:??Regular rate and rhythm with S1-S2. 3/6 systolic murmur at the left upper sternal border. Gastrointestinal:??Abdomen is soft and protuberant with positive bowel sounds. Suprapubic catheter in place. Genitourinary:?Yellow slightly cloudy urine in the Martínez catheter. Skin:??Warm and dry. Extremities:?Mild bilateral vasu ankle edema. Neurological:? Both hands are contracted, right greater than left. Psychiatric:?Pleasant and cooperative with appropriate affect Objective Data Vital Signs Vital Signs: Vital Signs - 24 hr 04/01/24 14:33 04/01/24 14:00 04/01/24 21:33 Temperature 98.2 F 98.1 F Pulse Rate 102 H 95 Respiratory Rate 16 20 Blood Pressure 164/78 H 147/73 H Pulse Oximetry 96 96 Oxygen Delivery Room Air 04/01/24 21:38 04/01/24 20:00 04/02/24 06:00 Temperature 96.9 F L Pulse Rate 76 76 82 Respiratory Rate 20 18 Blood Pressure 163/75 H Pulse Oximetry 96 98 Oxygen Delivery Room Air 04/02/24 09:59 Temperature Pulse Rate 82 Respiratory Rate Blood Pressure Pulse Oximetry Oxygen Delivery Intake/Output Intake/Output: Inta
[2024-04-02 14:00] VITALS: BP 181/83; PULSE 88; RESP 16; TEMP 36.6; O2SAT 97
[2024-04-02] MEDS: ACIDOPHILUS/BULGARICUS CHEWABLE TABLET 1 TABLET PO ×2 (17:38→21:04)
[2024-04-02] MEDS: VANCOMYCIN HCL 125 MG ORAL CAPSULE PO (17:38)
[2024-04-02 21:03] VITALS: PULSE 80
[2024-04-02 21:29] VITALS: BP 162/83; PULSE 93; RESP 18; TEMP 37.4; O2SAT 100
[2024-04-03] MEDS: VANCOMYCIN HCL 125 MG ORAL CAPSULE PO ×4 (00:30→17:14)
[2024-04-03] MEDS: MEROPENEM 1 GM/NS 100 ML 1 GM/100 ML BAG IVPB ×3 (00:30→17:14)
[2024-04-03] MEDS: IBUPROFEN 400 MG TABLET 800 MG PO (01:09)
[2024-04-03 05:44] LABS: Hematocrit 34.8 % (42.0-52.0); Hemoglobin 11.2 g/dL (14.0-18.0); Immature Platelet Fraction Pct 4.6 % (0.9-11.2); Mean Corpuscular HGB Conc 32.2 g/dl (32-36); Mean Corpuscular Hemoglobin 30.1 pg (26-34); Mean Corpuscular Volume 93.5 fl (80-100); Mean Platelet Volume 10.5 fl (7.4-10.4); Platelet Count Result 139 k/mm3 (150-375); Red Blood Count 3.72 M/mm3 (4.6-6.20); Red Cell Distribution Width 14.8 % (11.5-14.5); White Blood Count 5.1 K/mm3 (4.5-10.0)
[2024-04-03 05:57] LABS: Alanine Aminotransferase 28 U/L (6-50); Albumin Level 3.1 g/dL (3.5-5.1); Alkaline Phosphatase 92 U/L (38-126); Anion Gap 6 mmol/L (4-12); Aspartate Amino Transferase 34 U/L (17-59); Bilirubin,Total 0.7 mg/dL (0.2-1.3); Blood Urea Nitrogen 16 mg/dL (9-20); Calcium 7.6 mg/dL (8.4-10.2); Carbon Dioxide 27 mmol/L (22-30); Chloride 104 mmol/L (98-107); Estimated CRCL calculation 67 ml/min; Estimated Glomerular Filt Rate > 60; Glucose 104 mg/dL (65-110); Sodium 137 mmol/L (137-145)
[2024-04-03 06:00] VITALS: BP 156/78; PULSE 83; RESP 18; TEMP 36.7; O2SAT 98
[2024-04-03 09:43] VITALS: PULSE 83
[2024-04-03] MEDS: THERAPEUTIC MULTIVITAMINS/MINERALS TAB (*BKC) 1 TABLET PO (09:43)
[2024-04-03] MEDS: MIRABEGRON 25 MG ER TABLET PO (09:43)
[2024-04-03] MEDS: METOPROLOL TARTRATE 25 MG TABLET PO ×2 (09:43→20:45)
[2024-04-03] MEDS: ACIDOPHILUS/BULGARICUS CHEWABLE TABLET 1 TABLET PO ×4 (09:44→20:45)
[2024-04-03] MEDS: PREGABALIN (*CRX) 50 MG CAPSULE 100 MG PO ×2 (09:44→17:14)
[2024-04-03] MEDS: POTASSIUM CHLORIDE 20 MEQ ER TABLET 40 MEQ PO (09:44)
[2024-04-03] MEDS: LORATADINE 10 MG TABLET PO (09:44)
[2024-04-03] MEDS: PANTOPRAZOLE 40 MG TABLET PO (09:44)
[2024-04-03] MEDS: ASCORBIC ACID 500 MG TABLET PO (09:44)
[2024-04-03] MEDS: ZINC OXIDE 20% OINT 30 GM TUBE 1 APPLIC TOPICAL (09:45)
[2024-04-03] MEDS: DOXYCYCLINE HYCLATE 100 MG TABLET PO ×2 (09:45→20:45)
[2024-04-03] MEDS: MUPIROCIN 2% OINT 22 GM TUBE 1 APPLIC EACH NARE ×2 (09:46→20:46)
[2024-04-03] MEDS: ENOXAPARIN 40 MG/0.4 ML SYRINGE SUB-Q (09:46)
--- NOTE | 2024-04-03 12:43 | P.PNIM_ITS ---
Progress Note: A&P Assessment and Plan (1) Urinary tract infection due to extended-spectrum beta lactamase (ESBL) producing Escherichia coli: Code(s): N39.0 - Urinary tract infection, site not specified; B96.29 - Other Escherichia coli [E. 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 * sputum culture ordered * respiratory panel leg, dalila, and pneumo ordered * doxycycline and meropenem (if suspected staph cover with vancomycin until sputum culture negative) MRSA nares positive gave one dose of Vancomycin however D/C after c-diff positive and patient asymptomatic. * supplemental oxygen therapy to maintain oxygen 92%: Currently on RA * IV fluids * blood cultures NGTD (3) C. difficile diarrhea: Code(s): A04.72 - Enterocolitis due to Clostridium difficile, not specified as recurrent Status: Acute Assessment and Plan: * Likely secondary to recent ABX therapy * vancomycin p.o. * Protonix * IV fluids * monitor electrolytes replace as needed especially potassium and magnesium * Holding stool softeners (4) Chronic pain syndrome: Code(s): G89.4 - Chronic pain syndrome Status: Acute Assessment and Plan: * Baclofen pump resumed (5) Bacteremia due to Gram-negative bacteria: Code(s): R78.81 - Bacteremia Status: Acute Assessment and Plan: * Gram-negative bacilli x1 bottle * Meropenem IV pending cultures * Follow-up call to use ordered 04/04 Plan Code status: Full code per patient DVT prophylaxis: Lovenox Stress ulcer prophylaxis: Protonix 40 daily PT/OT notes: PT/OT pending Disposition: Patient was admitted to the medical unit with diagnosis of UTI, pneumonia, and C-diff urine culture and blood cultures positive Gram-negative bacilli pending sensitivities. patient is from a group home facility plan will be to return at discharge when medically stable Time Spent With Patient Time with patient: 15 - 25 minutes Subjective Date/time seen: 04/03/24 12:43 Interval history: Patient is 74-year-old male admitted to medical unit for, pneumonia, UTI, and C-diff 04/03/24: Patient denied any SOB or CP, still reporting diarrhea, weakness and chills overnight no fevers. Patient denied ABD pain. Review of Systems Review of Systems: 12 systems were reviewed and are negativ e except for as per HPI. All systems reviewed & are unremarkable except as noted in HPI
--- NOTE | 2024-04-03 12:43 | PM.IMPN ---
Progress Note: A&P Assessment and Plan (1) Urinary tract infection due to extended-spectrum beta lactamase (ESBL) producing Escherichia coli: Code(s): N39.0 - Urinary tract infection, site not specified; B96.29 - Other Escherichia coli [E. 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 sputum culture ordered respiratory panel leg, dalila, and pneumo ordered doxycycline and meropenem (if suspected staph cover with vancomycin until sputum culture negative) MRSA nares positive gave one dose of Vancomycin however D/C after c-diff positive and patient asymptomatic. supplemental oxygen therapy to maintain oxygen 92%: Currently on RA IV fluids blood cultures NGTD (3) C. difficile diarrhea: Code(s): A04.72 - Enterocolitis due to Clostridium difficile, not specified as recurrent Status: Acute Assessment and Plan: Likely secondary to recent ABX therapy vancomycin p.o. Protonix IV fluids monitor electrolytes replace as needed especially potassium and magnesium Holding stool softeners (4) Chronic pain syndrome: Code(s): G89.4 - Chronic pain syndrome Status: Acute Assessment and Plan: Baclofen pump resumed (5) Bacteremia due to Gram-negative bacteria: Code(s): R78.81 - Bacteremia Status: Acute Assessment and Plan: Gram-negative bacilli x1 bottle Meropenem IV pending cultures Follow-up call to use ordered 04/04 Plan Code status: Full code per patient DVT prophylaxis: Lovenox Stress ulcer prophylaxis: Protonix 40 daily PT/OT notes: PT/OT pending Disposition: Patient was admitted to the medical unit with diagnosis of UTI, pneumonia, and C-diff urine culture and blood cultures positive Gram-negative bacilli pending sensitivities. patient is from a [facility] facility plan will be to return at discharge when medically stable Time Spent With Patient Time with patient: 15 - 25 minutes Subjective Date/time seen: 04/03/24 12:43 Interval history: Patient is 74-year-old male admitted to medical unit for, pneumonia, UTI, and C-diff 04/03/24: Patient denied any SOB or CP, still reporting diarrhea, weakness and chills overnight no fevers. Patient denied ABD pain. Review of Systems Review of Systems: 12 systems were reviewed and are negative except for as per HPI. All systems reviewed & are unremarkable except as noted in HPI and below Exam Narrative: General:?Pleasant male in no acute distress alert and oriented x 3 Neck:??Supple. Respiratory:?Respirations are nonlabored and lungs are clear to auscultation. Cardiovascular:??Regular rate and rhythm with S1-S2. 3/6 systolic murmur at the left upper sternal border. Gastrointestinal:??Abdomen is soft and protuberant with positive bowel sounds. Suprapubic catheter in place. Genitourinary:?Yellow slightly cloudy urine in the Martínez catheter. Skin:??Warm and dry. Extremities:?Mild bilateral vasu ankle edema. Neurological:? Both hands are contracted, right greater than left. Psychiatric:?Pleasant and cooperative with appropriate affect Objective Data Vital Signs Vital Signs: Vital Signs - 24 hr 04/02/24 14:00 04/02/24 21:03 04/02/24 21:29 Temperature 97.8 F 99.3 F Pulse Rate 88 80 93 Respiratory Rate 16 18 Blood Pressure 181/83 H 162/83 H Pulse Oximetry 97 100 Oxygen Delivery 04/03/24 06:00 04/03/24 0
[2024-04-03] MEDS: FOLIC ACID 1 MG TABLET PO (13:58)
[2024-04-03 14:30] VITALS: BP 167/73; PULSE 70; RESP 17; TEMP 36.3; O2SAT 99
[2024-04-03 19:29] VITALS: BP 162/76; PULSE 83; RESP 18; TEMP 37; O2SAT 99
[2024-04-03 20:45] VITALS: PULSE 83
[2024-04-04] MEDS: VANCOMYCIN HCL 125 MG ORAL CAPSULE PO ×4 (00:05→17:57)
[2024-04-04] MEDS: MEROPENEM 1 GM/NS 100 ML 1 GM/100 ML BAG IVPB ×3 (00:05→17:57)
[2024-04-04 03:33] VITALS: BP 162/75; PULSE 89; RESP 18; TEMP 36.9; O2SAT 93
[2024-04-04 06:29] LABS: Hematocrit 35.3 % (42.0-52.0); Hemoglobin 11.1 g/dL (14.0-18.0); Mean Corpuscular HGB Conc 31.4 g/dl (32-36); Mean Corpuscular Hemoglobin 29.3 pg (26-34); Mean Corpuscular Volume 93.1 fl (80-100); Mean Platelet Volume 10.8 fl (7.4-10.4); Platelet Count Result 146 k/mm3 (150-375); Red Blood Count 3.79 M/mm3 (4.6-6.20); Red Cell Distribution Width 14.6 % (11.5-14.5); White Blood Count 3.8 K/mm3 (4.5-10.0)
[2024-04-04 06:42] LABS: Alanine Aminotransferase 35 U/L (6-50); Albumin Level 3.1 g/dL (3.5-5.1); Alkaline Phosphatase 83 U/L (38-126); Anion Gap 5 mmol/L (4-12); Aspartate Amino Transferase 38 U/L (17-59); Bilirubin,Total 0.7 mg/dL (0.2-1.3); Blood Urea Nitrogen 15 mg/dL (9-20); Calcium 7.8 mg/dL (8.4-10.2); Carbon Dioxide 28 mmol/L (22-30); Chloride 102 mmol/L (98-107); Estimated CRCL calculation 94 ml/min; Estimated Glomerular Filt Rate > 60; Glucose 102 mg/dL (65-110); Potassium 3.3 mmol/L (3.4-5.0); Sodium 135 mmol/L (137-145)
[2024-04-04] MEDS: IBUPROFEN 400 MG TABLET 800 MG PO (08:54)
[2024-04-04] MEDS: POTASSIUM CHLORIDE 20 MEQ ER TABLET 40 MEQ PO (08:54)
[2024-04-04] MEDS: LORATADINE 10 MG TABLET PO (08:56)
[2024-04-04] MEDS: DOXYCYCLINE HYCLATE 100 MG TABLET PO ×2 (08:56→20:37)
[2024-04-04] MEDS: MIRABEGRON 25 MG ER TABLET PO (08:56)
[2024-04-04] MEDS: ASCORBIC ACID 500 MG TABLET PO (08:56)
[2024-04-04] MEDS: PANTOPRAZOLE 40 MG TABLET PO (08:56)
[2024-04-04] MEDS: PREGABALIN (*CRX) 50 MG CAPSULE 100 MG PO ×2 (08:56→17:57)
[2024-04-04 08:57] VITALS: PULSE 89
[2024-04-04] MEDS: THERAPEUTIC MULTIVITAMINS/MINERALS TAB (*BKC) 1 TABLET PO (08:57)
[2024-04-04] MEDS: METOPROLOL TARTRATE 25 MG TABLET PO ×2 (08:57→20:37)
[2024-04-04] MEDS: FERROUS SULFATE 325 MG TABLET DR PO (08:57)
[2024-04-04] MEDS: ACIDOPHILUS/BULGARICUS CHEWABLE TABLET 1 TABLET PO ×4 (08:57→20:38)
[2024-04-04] MEDS: ENOXAPARIN 40 MG/0.4 ML SYRINGE SUB-Q (08:58)
[2024-04-04] MEDS: MUPIROCIN 2% OINT 22 GM TUBE 1 APPLIC EACH NARE ×2 (08:58→20:38)
[2024-04-04] MEDS: ZINC OXIDE 20% OINT 30 GM TUBE 1 APPLIC TOPICAL (08:58)
[2024-04-04 13:35] VITALS: O2SAT 93
[2024-04-04 14:00] VITALS: BP 160/76; PULSE 75; RESP 16; TEMP 36.2; O2SAT 97
[2024-04-04] MEDS: FOLIC ACID 1 MG TABLET PO (14:00)
--- NOTE | 2024-04-04 15:03 | PM.DS ---
DS: Discharge Diagnosis Discharge Diagnosis (1) Urinary tract infection due to extended-spectrum beta lactamase (ESBL) producing Escherichia coli: Code(s): N39.0 - Urinary tract infection, site not specified; B96.29 - Other Escherichia coli [E. coli] as the cause of diseases classified elsewhere; Z16.12 - Extended spectrum beta lactamase (ESBL) resistance Status: Acute (2) C. difficile diarrhea: Code(s): A04.72 - Enterocolitis due to Clostridium difficile, not specified as recurrent Status: Acute (3) Chronic pain syndrome: Code(s): G89.4 - Chronic pain syndrome Status: Acute (4) Bacteremia due to Gram-negative bacteria: Code(s): R78.81 - Bacteremia Status: Acute DS: Summary Time Spent with Patient Time attestation: Total time spent providing and/or coordinating discharge services: Exam Narrative: General:?Pleasant male in no acute distress alert and oriented x 3 Neck:??Supple. Respiratory:?Respirations are nonlabored and lungs are clear to auscultation. Cardiovascular:??Regular rate and rhythm with S1-S2. 3/6 systolic murmur at the left upper sternal border. Gastrointestinal:??Abdomen is soft and protuberant with positive bowel sounds. Suprapubic catheter in place. Genitourinary:?Yellow slightly cloudy urine in the Martínez catheter. Skin:??Warm and dry. Extremities:?Mild bilateral vasu ankle edema. Neurological:? Both hands are contracted, right greater than left. Psychiatric:?Pleasant and cooperative with appropriate affect DS: Data Data Completed and Pending Labs on day of discharge: Labs from last 24 hours 04/04/24 04/04/24 05:57 05:56 WBC 3.8 L RBC 3.79 L Hgb 11.1 L Hct 35.3 L MCV 93.1 MCH 29.3 MCHC 31.4 L RDW 14.6 H Plt Count 146 L MPV 10.8 H Sodium 135 L Potassium 3.3 L Chloride 102 Carbon Dioxide 28 Anion Gap 5 BUN 15 Creatinine 0.70 Estim Creat Clear Calc 94 Estimated GFR > 60 Glucose 102 Calcium 7.8 L Total Bilirubin 0.7 AST 38 ALT 35 Alkaline Phosphatase 83 Total Protein 6.0 L Albumin 3.1 L Preliminary micro results at discharge 04/01/24 08:30 Blood Culture - Preliminary Blood Escherichia Coli 04/01/24 08:30 Blood Culture - Preliminary Blood Discharge Plan Discharge Discharge Medications: No Action glycerin-mineral oil 5 ml BYMOUTH TID PRN (Reason: Constipation) bisacodyl 10 mg suppository 10 mg RECTAL DAILY PRN (Reason: constipation) Qty: 12 0RF psyllium husk [Metamucil] 0.4 gram capsule 0.4 g PO DAILY Qty: 30 0RF magnesium citrate [OneLAX Magnesium Citrate] Solution 150 ml PO DAILY PRN (Reason: constipation) Qty: 296 0RF metoprolol tartrate 25 mg tablet 25 mg PO BID methenamine hippurate [Hiprex] 1 gram Tablet 1 g PO BID pantoprazole [Protonix] 40 mg Tablet,Delayed Release (Dr/Ec) 40 mg PO DAILY ascorbic acid (vitamin C) 500 mg Tablet,Chewable 500 mg PO DAILY ibuprofen 400 mg Tablet 800 mg PO Q6-8H PRN (Reason: Pain) acidophilus-pectin, citrus [Acidophilus Probiotic] 100 million cell-10 mg Capsule 1 cap PO BID cranberry 450 mg Tablet 450 mg PO BID Rx Instructions: administer with meals Adult Multivitamin with Iron 18 mg iron-25 mcg Tablet 1 tablet PO DAILY atorvastatin 80 mg Tablet 80 mg PO HS acetaminophen tablet 1,000 mg PO Q6H PRN (Reason: Pain) ferrous sulfate 325 mg (65 mg iron) Tablet 325 mg PO EVERY OTHER DAY Dulcolax (bisacodyl) 5 mg PO DAILY PRN (Reason: Constipation) folic acid 1 mg PO DAILY@1200 pregabalin [Lyrica] 100 mg Capsule 100 mg PO BID sennosides-docusate sodium [Senna Plus] 8.6-50 mg Tablet 1 tablet PO BID polyethylene glycol 3350 [Miralax] 17 gram/dose Powder 17 g PO DAILY PRN (Reason: Constipation) [id number] cb#1 11-11 % Cream 1 applic TOPICAL Q4H PRN (Reason
--- NOTE | 2024-04-04 15:21 | P.PNIM_ITS ---
Progress Note: A&P Assessment and Plan (1) Urinary tract infection due to extended-spectrum beta lactamase (ESBL) producing Escherichia coli: Code(s): N39.0 - Urinary tract infection, site not specified; B96.29 - Other Escherichia coli [E. 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 difficile diarrhea: Code(s): A04.72 - Enterocolitis due to Clostridium difficile, not specified as recurrent Status: Acute Assessment and Plan: * Likely secondary to recent ABX therapy * vancomycin p.o. * Protonix * IV fluids * monitor electrolytes replace as needed especially potassium and magnesium * Holding stool softeners 04/04/2024: * Patient reporting HX of obstruction concerned he has one * HX of adynamic ileus * CT ABD pending (3) Chronic pain syndrome: Code(s): G89.4 - Chronic pain syndrome Status: Acute Assessment and Plan: * Baclofen pump resumed (4) Bacteremia due to Gram-negative bacteria: Code(s): R78.81 - Bacteremia Status: Acute Assessment and Plan: * Gram-negative bacilli x1 bottle * Meropenem IV pending cultures * Follow-up call to use ordered 04/0404/04/2024: * Will need IV ertapenem x4 days * Midline placed * Follow-up cultures NGTD Plan Code status: Full code per patient DVT prophylaxis: Lovenox Stress ulcer prophylaxis: Protonix 40 daily PT/OT notes: PT/OT pending Disposition: Patient is stable for discharge midline placed for 4 more days IV ertapenem however alf was unable for patient to return today due to need of isolation room for patient C diff. patient should be able to discharge there tomorrow. Time Spent With Patient Time with patient: 15 - 25 minutes Subjective Date/time seen: 04/04/24 15:21 Interval history: Patient is 74-year-old male admitted to medical unit for, pneumonia, UTI, and C-diff 04/04/2024 Patient denied any SOB or CP, still reporting diarrhea, but feeling better, eating well, denied fever or chills overnight Review of Systems Review of Systems: 12 systems were reviewed and are negativ e except for as per HPI. All systems reviewed & are unremarkable except as noted in HPI and below Objective Data Vital Signs Vital Signs: Vital Signs - 24 hr 04/03/24 19:29 04/03/24 20:45 04/04/24 03:33 Temperature 98.6 F 98.4 F Pulse Rate 83 83 89 Respiratory Rate 18 18 Blood Pressure 162/76 H 162/75 H Pulse Oximetry 99 93 Oxygen Delivery Fraction of Inspired Oxygen 04/04/24
--- NOTE | 2024-04-04 15:21 | PM.IMPN ---
Progress Note: A&P Assessment and Plan (1) Urinary tract infection due to extended-spectrum beta lactamase (ESBL) producing Escherichia coli: Code(s): N39.0 - Urinary tract infection, site not specified; B96.29 - Other Escherichia coli [E. 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 difficile diarrhea: Code(s): A04.72 - Enterocolitis due to Clostridium difficile, not specified as recurrent Status: Acute Assessment and Plan: Likely secondary to recent ABX therapy vancomycin p.o. Protonix IV fluids monitor electrolytes replace as needed especially potassium and magnesium Holding stool softeners 04/04/2024: Patient reporting HX of obstruction concerned he has one HX of adynamic ileus CT ABD pending (3) Chronic pain syndrome: Code(s): G89.4 - Chronic pain syndrome Status: Acute Assessment and Plan: Baclofen pump resumed (4) Bacteremia due to Gram-negative bacteria: Code(s): R78.81 - Bacteremia Status: Acute Assessment and Plan: Gram-negative bacilli x1 bottle Meropenem IV pending cultures Follow-up call to use ordered 04/0404/04/2024: Will need IV ertapenem x4 days Midline placed Follow-up cultures NGTD Plan Code status: Full code per patient DVT prophylaxis: Lovenox Stress ulcer prophylaxis: Protonix 40 daily PT/OT notes: PT/OT pending Disposition: Patient is stable for discharge midline placed for 4 more days IV ertapenem however detention was unable for patient to return today due to need of isolation room for patient C diff. patient should be able to discharge there tomorrow. Time Spent With Patient Time with patient: 15 - 25 minutes Subjective Date/time seen: 04/04/24 15:21 Interval history: Patient is 74-year-old male admitted to medical unit for, pneumonia, UTI, and C-diff 04/04/2024 Patient denied any SOB or CP, still reporting diarrhea, but feeling better, eating well, denied fever or chills overnight Review of Systems Review of Systems: 12 systems were reviewed and are negative except for as per HPI. All systems reviewed & are unremarkable except as noted in HPI and below Objective Data Vital Signs Vital Signs: Vital Signs - 24 hr 04/03/24 19:29 04/03/24 20:45 04/04/24 03:33 Temperature 98.6 F 98.4 F Pulse Rate 83 83 89 Respiratory Rate 18 18 Blood Pressure 162/76 H 162/75 H Pulse Oximetry 99 93 Oxygen Delivery Fraction of Inspired Oxygen 04/04/24 08:57 04/04/24 08:50 04/04/24 13:35 Temperature Pulse Rate 89 Respiratory Rate Blood Pressure Pulse Oximetry 93 Oxygen Delivery Room Air Room Air Fraction of Inspired Oxygen 21 Intake/Output Intake/Output: Intake & Output 04/01/24 04/02/24 04/03/24 04/04/24 23:59 23:59 23:59 23:59 Intake Total 2970 1270 1560 830 Output Total 950 1150 3450 500 Balance 2019 120 -1890 330 Meds/Results Medications: Active Medications Generic Name Dose Route Start Last Admin Trade Name Freq PRN Reason Stop Dose Admin Acetaminophen 650 mg 04/01/24 08:53 Acetaminophen 325 Mg Tablet PO Q4H PRN Mild Pain (1-3) or Fever Ascorbic Acid 500 mg 04/02/24 09:00 04/04/24 08:56 Ascorbic Acid 500 Mg Tablet PO 500 mg DAILY NASRIN Administration Baclofen 5 mg 04/01/24 14:37 Baclofen 5 Mg Tablet PO TID PRN Muscle Spasm Doxycycline Hyclate 100 mg 04/02/24 10:55 04/04/24 08:56 Doxycycline Hyclate 100 Mg Tablet PO 100 mg Q12HR NASRIN Administration Enoxaparin Sod
[2024-04-04] MEDS: LIDOCAINE HCL 1% LOCAL INJ 2 ML AMPUL 5 ML INFILTRATE (15:50)
[2024-04-04 20:37] VITALS: PULSE 69
[2024-04-04] MEDS: SALINE LOCK FLUSH 10 ML IV PUSH (20:38)
[2024-04-04 20:55] VITALS: BP 176/74; PULSE 69; RESP 16; TEMP 36.5; O2SAT 98
[2024-04-05] MEDS: MEROPENEM 1 GM/NS 100 ML 1 GM/100 ML BAG IVPB ×3 (00:13→15:11)
[2024-04-05] MEDS: VANCOMYCIN HCL 125 MG ORAL CAPSULE PO ×3 (00:16→12:02)
[2024-04-05] MEDS: SALINE LOCK FLUSH 10 ML IV PUSH ×2 (05:56→14:58)
[2024-04-05 06:15] VITALS: BP 167/82; PULSE 82; RESP 16; TEMP 36.8; O2SAT 95
[2024-04-05 06:29] LABS: Hematocrit 38.8 % (42.0-52.0); Hemoglobin 12.1 g/dL (14.0-18.0); Mean Corpuscular HGB Conc 31.2 g/dl (32-36); Mean Corpuscular Hemoglobin 29.4 pg (26-34); Mean Corpuscular Volume 94.4 fl (80-100); Mean Platelet Volume 10.3 fl (7.4-10.4); Platelet Count Result 143 k/mm3 (150-375); Red Blood Count 4.11 M/mm3 (4.6-6.20); Red Cell Distribution Width 14.7 % (11.5-14.5); White Blood Count 4.5 K/mm3 (4.5-10.0)
[2024-04-05 06:45] LABS: Alanine Aminotransferase 38 U/L (6-50); Albumin Level 3.2 g/dL (3.5-5.1); Alkaline Phosphatase 87 U/L (38-126); Anion Gap 4 mmol/L (4-12); Aspartate Amino Transferase 39 U/L (17-59); Bilirubin,Total 0.5 mg/dL (0.2-1.3); Blood Urea Nitrogen 16 mg/dL (9-20); Calcium 8.1 mg/dL (8.4-10.2); Carbon Dioxide 31 mmol/L (22-30); Chloride 105 mmol/L (98-107); Estimated CRCL calculation 83 ml/min; Estimated Glomerular Filt Rate > 60; Glucose 101 mg/dL (65-110); Potassium 3.6 mmol/L (3.4-5.0); Sodium 140 mmol/L (137-145)
[2024-04-05] MEDS: PSYLLIUM POWDER PACKET 1 PACKET PO (08:59)
[2024-04-05] MEDS: ASCORBIC ACID 500 MG TABLET PO (08:59)
[2024-04-05] MEDS: THERAPEUTIC MULTIVITAMINS/MINERALS TAB (*BKC) 1 TABLET PO (08:59)
[2024-04-05] MEDS: DOXYCYCLINE HYCLATE 100 MG TABLET PO (08:59)
[2024-04-05 09:00] VITALS: PULSE 80
[2024-04-05] MEDS: METOPROLOL TARTRATE 25 MG TABLET PO (09:00)
[2024-04-05] MEDS: PREGABALIN (*CRX) 50 MG CAPSULE 100 MG PO (09:01)
[2024-04-05] MEDS: PANTOPRAZOLE 40 MG TABLET PO (09:01)
[2024-04-05] MEDS: LORATADINE 10 MG TABLET PO (09:01)
[2024-04-05] MEDS: MIRABEGRON 25 MG ER TABLET PO (09:01)
[2024-04-05] MEDS: ENOXAPARIN 40 MG/0.4 ML SYRINGE SUB-Q (09:01)
[2024-04-05] MEDS: ACIDOPHILUS/BULGARICUS CHEWABLE TABLET 1 TABLET PO ×2 (09:01→12:02)
[2024-04-05] MEDS: MUPIROCIN 2% OINT 22 GM TUBE 1 APPLIC EACH NARE (09:02)
[2024-04-05] MEDS: ZINC OXIDE 20% OINT 30 GM TUBE 1 APPLIC TOPICAL (09:02)
[2024-04-05] MEDS: FOLIC ACID 1 MG TABLET PO (12:02)
--- NOTE | 2024-04-05 13:27 | P.DS_ITS ---
DS: Admitting Diagnosis Discharge Date 04/05 Admitting Diagnosis weakness DS: Discharge Diagnosis Discharge Diagnosis (1) Urinary tract infection due to extended-spectrum beta lactamase (ESBL) producing Escherichia coli: Code(s): N39.0 - Urinary tract infection, site not specified; B96.29 - Other Escherichia coli [E. 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 difficile diarrhea: Code(s): A04.72 - Enterocolitis due to Clostridium difficile, not specified as recurrent Status: Acute Assessment and Plan: * Likely secondary to recent ABX therapy * vancomycin p.o. * Protonix * IV fluids * monitor electrolytes replace as needed especially potassium and magnesium * Holding stool softeners 04/04/2024: * Patient reporting HX of obstruction concerned he has one * HX of adynamic ileus * CT ABD pending (3) Chronic pain syndrome: Code(s): G89.4 - Chronic pain syndrome Status: Acute Assessment and Plan: * Baclofen pump resumed (4) Bacteremia due to Gram-negative bacteria: Code(s): R78.81 - Bacteremia Status: Acute Assessment and Plan: * Gram-negative bacilli x1 bottle * Meropenem IV pending cultures * Follow-up call to use ordered 04/0404/04/2024: * Will need IV ertapenem x4 days * Midline placed * Follow-up cultures NGTD Plan Code status: Full code per patient DVT prophylaxis: Lovenox Stress ulcer prophylaxis: Protonix 40 daily PT/OT notes: PT/OT pending Disposition: Patient is stable for discharge midline placed for 4 more days IV ertapenem however fdc was unable for patient to return today due to need of isolation room for patient C diff. patient should be able to discharge there tomorrow. DS: Summary Hospital Course Reason for hospitalization: UTI, community acquired pneumonia, c-diff colitis Hospital Course: This is a 74 year old gentleman who presented with complaints of weakness. The patient provides the following history. He has not been feeling well for several days and is more weak than usual, requiring more assistance from staff at his facility to get up and about. He has lower abdominal discomfort similar to when he has had urinary tract infections. On review of his EMS, he has been treated with multiple different antibiotics for urinary tract infections this year, at least 10 times this year upon review of his external medication history. Last urine culture taken 03/09/2024 grew out ESBL escherichia coli for which he was treated with nitrofurantoin. He was admitted and found to have ECOLI bacteremia secondary to a urinary tract infection from his suprapubic catheter. Urine culture also grew ecoli. For this he was treated with IV meropenem. He was also found to have c-diff
--- NOTE | 2024-04-05 13:27 | PM.DS ---
DS: Admitting Diagnosis Discharge Date 04/05 Admitting Diagnosis weakness DS: Discharge Diagnosis Discharge Diagnosis (1) Urinary tract infection due to extended-spectrum beta lactamase (ESBL) producing Escherichia coli: Code(s): N39.0 - Urinary tract infection, site not specified; B96.29 - Other Escherichia coli [E. 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 difficile diarrhea: Code(s): A04.72 - Enterocolitis due to Clostridium difficile, not specified as recurrent Status: Acute Assessment and Plan: Likely secondary to recent ABX therapy vancomycin p.o. Protonix IV fluids monitor electrolytes replace as needed especially potassium and magnesium Holding stool softeners 04/04/2024: Patient reporting HX of obstruction concerned he has one HX of adynamic ileus CT ABD pending (3) Chronic pain syndrome: Code(s): G89.4 - Chronic pain syndrome Status: Acute Assessment and Plan: Baclofen pump resumed (4) Bacteremia due to Gram-negative bacteria: Code(s): R78.81 - Bacteremia Status: Acute Assessment and Plan: Gram-negative bacilli x1 bottle Meropenem IV pending cultures Follow-up call to use ordered 04/0404/04/2024: Will need IV ertapenem x4 days Midline placed Follow-up cultures NGTD Plan Code status: Full code per patient DVT prophylaxis: Lovenox Stress ulcer prophylaxis: Protonix 40 daily PT/OT notes: PT/OT pending Disposition: Patient is stable for discharge midline placed for 4 more days IV ertapenem however care home was unable for patient to return today due to need of isolation room for patient C diff. patient should be able to discharge there tomorrow. DS: Summary Hospital Course Reason for hospitalization: UTI, community acquired pneumonia, c-diff colitis Hospital Course: This is a 74 year old gentleman who presented with complaints of weakness. The patient provides the following history. He has not been feeling well for several days and is more weak than usual, requiring more assistance from staff at his facility to get up and about. He has lower abdominal discomfort similar to when he has had urinary tract infections. On review of his EMS, he has been treated with multiple different antibiotics for urinary tract infections this year, at least 10 times this year upon review of his external medication history. Last urine culture taken 03/09/2024 grew out ESBL escherichia coli for which he was treated with nitrofurantoin. He was admitted and found to have ECOLI bacteremia secondary to a urinary tract infection from his suprapubic catheter. Urine culture also grew ecoli. For this he was treated with IV meropenem. He was also found to have c-diff colitis and was started on oral vancomycin. Chest x-ray on admission was also suspicious for pneumonia despite a lack of respiratory symptoms. Repeat chest x-ray the next morning did show concerns for a persistent bilateral infiltrates. He was treated for CAP with doxycycline in addition to the meropenem for his UTI, bacteremia. Blood cultures were re-drawn and showed no growth after 24 hours of antibiotics. A midline was placed and he was discharged to his care home with 4 more days of IV ertapenem. He also was given prescriptions for doxycycline to complete his courses of treatment for pneumonia and oral vancomycin for his c-diff. Overall he did well and was discharged in stable condition to his care home. Time Spent with Patient Time attestation: Total time spent providing and
[2024-04-05 15:04] LABS: SARS-CoV-2 RNA PCR Negative (Negative)
[2024-04-05] MEDS: IBUPROFEN 400 MG TABLET 800 MG PO (15:10)
[2024-04-05 15:53] VITALS: BP 190/78; PULSE 76
[2024-04-06 16:24] LABS: Pneumococcal Antigen Urine NOT DETECTED
[2024-04-06 23:29] LABS: Legionella pneumophila Ag Ur NOT DETECTED
[2024-04-08 18:54] LABS: Mycoplasma IgM Antibody Titer 52 U/mL
== END 2024-04-05 15:58 | DRG 371 ==
LOC: ANHED 08:44 → ANH2MED 09:15
PROVIDERS: Nurse Practitioner Family; Physician Assistant; Student in an Organized Health Care Education/Training Program; Admitting Provider Internal Medicine; Emergency Provider Emergency Medicine; PCP Internal Medicine; Visit Provider Nurse Practitioner Acute Care
DX: A04.72 Enterocolitis due to Clostridium difficile, not specified as recurrent (principal); G82.54 Quadriplegia, C5-C7 incomplete; J18.9 Pneumonia, unspecified organism; T83.510A Infection and inflammatory reaction due to cystostomy catheter, initial encounter; N39.0 Urinary tract infection, site not specified; Z16.12 Extended spectrum beta lactamase (ESBL) resistance; R78.81 Bacteremia; B96.20 Unspecified Escherichia coli [E. coli] as the cause of diseases classified elsewhere; G89.4 Chronic pain syndrome; K21.9 Gastro-esophageal reflux disease without esophagitis; I10 Essential (primary) hypertension; N31.9 Neuromuscular dysfunction of bladder, unspecified; I69.398 Other sequelae of cerebral infarction; H53.8 Other visual disturbances; Z86.16 Personal history of COVID-19; V29.99XS Rider (driver) (passenger) of other motorcycle injured in unspecified traffic accident, sequela; Z86.718 Personal history of other venous thrombosis and embolism; Z90.49 Acquired absence of other specified parts of digestive tract
CPT/HCPCS: 36415; 36569; 71045; 71046; 74176; 80048; 80053; 81001; 83605; 83735; 85025; 85027; 85055; 86140; 86738; 87040; 87077; 87086; 87088; 87186; 87449; 87493; 87635; 87636; 87641; 87899; 96361; 96365; 96375; 96376; 99285; A9270; C1751; G0378; J1650; J1956; J2003; J2185; J3370; J7030

== ENCOUNTER 2024-05-03 22:58 | Emergency (ER) | payer MEDICARE, MEDICAID, SELFPAY ==
[2024-05-03 23:17] VITALS: BP 164/69; PULSE 64; RESP 16; TEMP 36.6; O2SAT 100
[2024-05-04 04:03] VITALS: BP 158/70; PULSE 62; RESP 15; O2SAT 100
--- NOTE | 2024-05-04 05:25 | PC.NURSE ---
Patient has suprapubic catheter placed before arrival to ED.
[2024-05-04 06:20] VITALS: BP 154/58; PULSE 72; RESP 15; O2SAT 100
[2024-05-04 07:14] LABS: Add Urine Microscopic? YES; Appearance Urine Turbid (Clear); Bacteria Urine 4+ /hpf; Bilirubin Urine Negative (Negative); Blood Urine Trace (Negative); Color Urine Dark Yellow (Yellow); Glucose Urine UA Negative (Negative); Ketones Urine Trace mg/dL (Negative); Leukocyte Esterase Ur 3+ LEU/UL (Negative); Mucus Urine Present /lpf; Nitrate Urine Positive (Negative); Protein Urine 2+ mg/dL (Negative); RBC Urine 0-2 /hpf (0-2); Specific Grav Ur 1.029 (1.001-1.035); Squamous Epithelial Cell Urine Few /hpf (Few); WBC Clumps Urine Present /HPF; WBC Urine >100 /hpf (0-3); pH Urine 5.5 (5.0-9.0)
[2024-05-04 07:31] VITALS: BP 172/73; PULSE 63; RESP 14; O2SAT 100
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
[2024-05-04 08:32] LABS: Basophils Percent Auto 0.4 % (0.2-1.2); Eosinophils Absolute Auto 0.2 K/mm3 (0-0.3); Eosinophils Percent Auto 2.9 % (0-4.4); Hematocrit 39.4 % (42.0-52.0); Hemoglobin 12.3 g/dL (14.0-18.0); Immature Granulocyte Absolute 0.03 K/mm3 (0.00-0.031); Immature Granulocyte Percent A 0.4 % (0-0.5); Lymphocytes Absolute Auto 0.87 K/mm3 (0.9-3.2); Lymphocytes Percent Auto 10.4 % (18.3-44.2); Mean Corpuscular HGB Conc 31.2 g/dl (32-36); Mean Corpuscular Hemoglobin 29.9 pg (26-34); Mean Corpuscular Volume 95.6 fl (80-100); Mean Platelet Volume 10.7 fl (7.4-10.4); Monocytes Absolute Auto 0.9 K/mm3 (0.1-0.6); Neutrophils Absolute Auto 6.3 K/mm3 (1.3-6.7); Neutrophils Percent Auto 74.9 % (45.5-73.1); Platelet Count Result 157 k/mm3 (150-375); Red Blood Count 4.12 M/mm3 (4.6-6.20); Red Cell Distribution Width 14.9 % (11.5-14.5); White Blood Count 8.4 K/mm3 (4.5-10.0)
[2024-05-04 08:43] LABS: Alanine Aminotransferase 19 U/L (6-50); Albumin Level 3.7 g/dL (3.5-5.1); Alkaline Phosphatase 122 U/L (38-126); Anion Gap 6 mmol/L (4-12); Aspartate Amino Transferase 22 U/L (17-59); Bilirubin,Total 0.6 mg/dL (0.2-1.3); Blood Urea Nitrogen 22 mg/dL (9-20); Calcium 8.1 mg/dL (8.4-10.2); Carbon Dioxide 33 mmol/L (22-30); Chloride 105 mmol/L (98-107); Estimated CRCL calculation 94 ml/min; Estimated Glomerular Filt Rate > 60; Glucose 97 mg/dL (65-110); Potassium 3.5 mmol/L (3.4-5.0); Sodium 144 mmol/L (137-145)
[2024-05-04 09:17] VITALS: BP 185/82; PULSE 66; RESP 14; O2SAT 97
[2024-05-04 11:33] VITALS: BP 186/78; PULSE 70; RESP 19; O2SAT 96
--- NOTE | 2024-05-04 11:59 | PC.NURSE ---
This RN gave report to Samantha at [facility] to notify pt's diagnosis, discharge plan and status. Pt son in contact list to notify under phone # [phone] did not answer attempt to update on pt/discuss d/c plan.
== END 2024-05-04 12:37 ==
PROVIDERS: Emergency Medicine; Emergency Provider Emergency Medicine; PCP Internal Medicine
DX: N39.0 Urinary tract infection, site not specified (principal); I10 Essential (primary) hypertension; I69.998 Other sequelae following unspecified cerebrovascular disease; H53.8 Other visual disturbances; G82.54 Quadriplegia, C5-C7 incomplete; S14.105S Unspecified injury at C5 level of cervical spinal cord, sequela; N31.9 Neuromuscular dysfunction of bladder, unspecified; K59.2 Neurogenic bowel, not elsewhere classified; D64.9 Anemia, unspecified; G89.4 Chronic pain syndrome; K21.9 Gastro-esophageal reflux disease without esophagitis; Z93.59 Other cystostomy status; Z86.718 Personal history of other venous thrombosis and embolism; Z86.16 Personal history of COVID-19; V29.99XS Rider (driver) (passenger) of other motorcycle injured in unspecified traffic accident, sequela
CPT/HCPCS: 36415; 51702; 80053; 81001; 85025; 87077; 87086; 87088; 87186; 96365; 99284; J0696

== ENCOUNTER 2024-05-07 09:32 | Emergency (ER) | payer OTHER, SELFPAY ==
--- NOTE | ~2024-05-07 | CT_ITS ---
EXAMINATION: CT brain wo con DATE: 05/07/2024 10:39 INDICATION: Head injury TECHNIQUE: Computed tomography (CT) of the head was performed without intravenous contrast. Sagittal and coronal reconstructions were performed. The mA was adjusted according to patient size. Iterative reconstruction technique was employed. The dose-length product was 920.82 mGy-cm. COMPARISON: head CT dated 02/12/2024 FINDINGS: No fracture. Small region of the chest was in the left occipital lobe consistent with old infarct. No acute intracranial hemorrhage, acute infarction or abnormal extra axial fluid collection. Ventricles are normal and symmetric. No mass/mass effect. The orbits, paranasal sinuses and mastoid air cells a re normal. IMPRESSION: 1. No fracture or acute intracranial process. 2. Small old left occipital lobe infarct. Reviewed, dictated and finalized at location A. [facility]ER
--- NOTE | ~2024-05-07 | CT_ITS ---
EXAMINATION: 1. CT facial & cervical spine wo DATE: 05/07/2024 10:39 INDICATION: Head injury TECHNIQUE: 1. Computed tomography (CT) of the maxillofacial region and of the cervical spine were performed with out intravenous contrast. Sagittal and coronal reconstructions of both regions were obtained. Automat ed exposure control and iterative reconstruction technique were employed. The dose-length product was 475.89 mGy-cm. COMPARISON: Multiple head CTs studies dated between 02/12/24 and 06/28/2020 FINDINGS: Maxillofacial CT: No interval change in configuration of a likely old left nasal bone fracture without associated soft tissue swelling. No acute maxillofacial fractures. Specifically the zygomatic arches, mandible and wa lls of the orbits and paranasal sinuses are all intact. Mild mucosal thickening in the ethmoid sinuse s. Orbits are normal. Patient is status post with alveolar ridge resorptive change. There is a retain ed implant post along the anterior left mandible. Mastoid air cells and middle ear cavities are clear . Maxillofacial soft tissues are unremarkable. Cervical spine CT: 16 degrees cervicothoracic levoscoliosis. Straightening of the normal cervical lordosis. Vertebral jenna dy heights are normal. No acute fracture. Moderate disc height loss with moderate and severe uncovert ebral osteoarthritis and small posterior endplate osteophytes contributing to mild central canal sten osis at C3-C4 through C6-C7. Mild disc height loss at C2-C3. Severe facet osteoarthritis on the right at C2-C3 through C4-C5 with moderate facet osteoarthritis throughout remainder of the cervical spine . Moderate severity multilevel bilateral neural foraminal stenosis. Small amount of atherosclerotic c alcifications at the bilateral carotid bulbs. Cervical soft tissues are unremarkable. Mild biapical p leural-parenchymal scarring. IMPRESSION: 1. Unchanged likely old left nasal bone fracture. No acute maxillofacial fractures. 2. 16 degrees cervicothoracic levoscoliosis with moderate cervical spondylosis. No acute osseous abno rmality. Reviewed, dictated and finalized at location A. R'S ASSISTANT IMPRESSION: 1. Unchanged likely old left nasal bone fracture. No acute maxillofacial fractu res. 2. 16 degrees cervicothoracic levoscoliosis with moderate cervical spondylosis. No acute osseous abnormality.
[2024-05-07 09:35] VITALS: BP 146/72; PULSE 65; RESP 20; TEMP 36.5; O2SAT 97
[2024-05-07 10:01] VITALS: BP 152/69; PULSE 66; RESP 18; O2SAT 99
[2024-05-07 10:16] VITALS: BP 148/72; PULSE 65; RESP 17; O2SAT 98
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
[2024-05-07 10:48] VITALS: O2SAT 98
[2024-05-07 11:00] VITALS: O2SAT 100
[2024-05-07] MEDS: AMOXICILLIN/CLAVULANATE K 875-125 MG TAB 1 TABLET PO (12:29)
[2024-05-07 12:55] VITALS: BP 156/85; PULSE 65; RESP 17; O2SAT 100
== END 2024-05-07 14:00 ==
PROVIDERS: Emergency Provider Emergency Medicine; PCP Internal Medicine
DX: S01.111A Laceration without foreign body of right eyelid and periocular area, initial encounter (principal); S61.412A Laceration without foreign body of left hand, initial encounter; S61.411A Laceration without foreign body of right hand, initial encounter; N39.0 Urinary tract infection, site not specified; Z16.19 Resistance to other specified beta lactam antibiotics; I10 Essential (primary) hypertension; I69.998 Other sequelae following unspecified cerebrovascular disease; H53.8 Other visual disturbances; G82.54 Quadriplegia, C5-C7 incomplete; S14.105S Unspecified injury at C5 level of cervical spinal cord, sequela; K59.2 Neurogenic bowel, not elsewhere classified; N31.9 Neuromuscular dysfunction of bladder, unspecified; G89.4 Chronic pain syndrome; K21.9 Gastro-esophageal reflux disease without esophagitis; Z93.59 Other cystostomy status; Z86.16 Personal history of COVID-19; Z86.718 Personal history of other venous thrombosis and embolism; Z86.2 Personal history of diseases of the blood and blood-forming organs and certain disorders involving the immune mechanism; Z79.899 Other long term (current) drug therapy; M47.812 Spondylosis without myelopathy or radiculopathy, cervical region; V49.40XA Driver injured in collision with unspecified motor vehicles in traffic accident, initial encounter; V29.99XS Rider (driver) (passenger) of other motorcycle injured in unspecified traffic accident, sequela
CPT/HCPCS: 12013; 70450; 70486; 72125; 99284; A9270; J2003

== ENCOUNTER 2024-06-11 00:02 | Observation (INO) | payer MEDICARE, MEDICAID, SELFPAY ==
[2024-06-11] VITALS (29 sets, daily range): BP systolic 101–171; BP diastolic 45–101; PULSE 73–108; RESP 13–22; TEMP 36.4–36.8; O2SAT 90–99; BMI 26.3; BMI 20.9
--- NOTE | ~2024-06-11 | US_ITS ---
EXAMINATION: US carotid duplex BI DATE: 06/12/2024 22:39 INDICATION: Cerebral infarction. Carotid atherosclerosis and stenosis. TECHNIQUE: Grayscale, color Doppler, and pulsed Doppler images of the cervical carotid arteries were obtained. The degree of vessel stenosis is placed in one of the following categories: normal, <50%, 5 0-69%, >=70% but less than near-occlusion, near-occlusion, or total occlusion. Note that percent sten osis relative to normal distal artery lumen diameter is indirectly measured from velocity measurement s as described by Ajay, et al. Radiology 2003; 229:340-346. COMPARISON: 12/12/2019 FINDINGS: RIGHT: The right common carotid artery (CCA) peak systolic velocity (PSV) is 90 cm/s. The right internal car otid artery (ICA) PSV is 112 cm/s. The right ICA end-diastolic velocity (EDV) is 13 cm/s. The right I CA/CCA PSV ratio is 1.2. Grayscale and color Doppler images yield an estimate of <50% diameter reduct ion from plaque in the ICA. The external carotid artery (ECA) PSV is 133 cm/s. There is antegrade danyel w in the right vertebral artery. LEFT: The left CCA PSV is 88 cm/s. The left ICA PSV is 130 cm/s. The left ICA EDV is 16 cm/s. The left ICA/ CCA PSV ratio is 1.5. Grayscale and color Doppler images including secondary Doppler criteria yield a n estimate of <50% diameter reduction from plaque in the ICA. The ECA PSV is 139 cm/s. There is anteg rade flow in the left vertebral artery. IMPRESSION: 1. <50% stenosis in the right internal carotid artery. 2. <50% stenosis in the left internal carotid artery. Reviewed, dictated and finalized at location A. R BEAM COLOR SCANNER OPERATOR
--- NOTE | ~2024-06-11 | CT_ITS ---
EXAMINATION: CT chest abdomen pelvis w con DATE: 06/11/2024 03:31 INDICATION: Altered mental status. TECHNIQUE: Computed tomography (CT) of the chest, abdomen, and pelvis was performed with 100 mL Omnip aque 350 intravenous contrast. Automated exposure control and iterative reconstruction technique were employed. The dose-length product was 877.62 mGy-cm. COMPARISON: CT abdomen and pelvis 04/04/24, 06/23/23 FINDINGS: CHEST CT: There is mild scarring at the lung apices. There are calcified pleural plaques bilaterally, which may be seen with asbestos exposure. There are airspace opacities in right lower lobe with volume loss. T here are subpleural bands in left lower lobe. There is a trace right pleural effusion. The heart size is normal. There are coronary artery calcifications. No pericardial effusion. There is thoracic kyph osis. There is chronic anterior wedging of multiple vertebral bodies. There is moderate thoracic spon dylosis. ABDOMEN/PELVIS CT: There are cysts in the liver measuring up to 1.8 cm . There are gallstones in the gallbladder, which is normal in size. The spleen, pancreas, and adrenal glands are normal. There is a filter in the infe rior vena cava. There are cysts in the kidneys measuring up to 9 mm on the left. There is cortical th inning of the kidneys. A suprapubic catheter is noted. The prostate is mildly enlarged. The sigmoid c olon is dilated, likely adynamic ileus. There is a moderate volume of stool in colon. The appendix is normal. There is calcified atherosclerosis of the aorta and many of the other arteries. There are no pathologically enlarged lymph nodes. There is no free intraperitoneal fluid. There are electrodes in the subcutaneous fat on the right posteriorly. There is an intrathecal catheter with subcutaneous pu mp in left abdomen with skin jorge. There is fluid and gas around the pump. There is moderate lumba r spondylosis. IMPRESSION: 1. Asbestosis. 2. Fluid around the implanted subcutaneous pump in left abdomen with signs of recent surgery, likely hematoma. Infection cannot be excluded by imaging. 3. Dilated sigmoid colon, likely adynamic ileus. Reviewed, dictated and finalized at location A. GRADER OPERATOR IMPRESSION: 1. Asbestosis. 2. Fluid around the implanted subcutaneous pump in left abdomen with signs of r ecent surgery, likely hematoma. Infection cannot be excluded by imaging. 3. Dilated sigmoid colon, likely adynamic ileus.
--- NOTE | ~2024-06-11 | CT_ITS ---
EXAMINATION: CT brain wo con DATE: 06/11/2024 03:31 INDICATION: Altered mental status. TECHNIQUE: Computed tomography (CT) of the head was performed without intravenous contrast. The mA wa s adjusted according to patient size. Iterative reconstruction technique was employed. The dose-lengt h product was 1513.33 mGy-cm. COMPARISON: Head CT 05/07/2024 FINDINGS: There is an old infarct in the left occipital lobe. There are scattered areas of low attenu ation in the cerebral white matter, which is within normal limits for the patient's age. There is no intracranial hemorrhage, acute infarction, or abnormal intracranial mass lesion. The ventricles are n ormal in size. There is mild mucosal thickening in the paranasal sinuses. The orbits are normal. The mastoid air cells are normal. IMPRESSION: 1. 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 Reviewed, dictated and finalized at location A. ORT MAINTENANCE LABORER
--- NOTE | ~2024-06-11 | XR_ITS ---
EXAMINATION: XR chest 1V DATE: 06/11/2024 03:35 INDICATION: Altered mental status. TECHNIQUE: A single frontal view of the chest was obtained. COMPARISON: Chest single view 04/02/2024, chest CT 06/11/2024 FINDINGS: There are chronic airspace opacities at the lung bases. No pleural effusion or pneumothorax . The heart size is normal. There is a filter in the inferior vena cava. There is an embolization coi l in the abdomen. IMPRESSION: 1. Chronic lung disease at the lung bases. Reviewed, dictated and finalized at location A. STICK MAN
--- NOTE | 2024-06-11 00:09 | ECG_ITS ---
Test Date: 2024-06-11 00:10:52 Measurements Intervals [place] Rate: 77 P: -13 PA: 260 QRS: -22 QRSD: 108 T: 8 QT: 384 QTc: 435 Interpretive Statements SINUS RHYTHM WITH FIRST DEGREE AV BLOCK INFERIOR MYOCARDIAL INFARCTION , PROBABLY OLD [40+ ms Q WAVE AND/OR ST/T ABNORMALITY IN II/aVF] Compared to ECG 02/12/2024 22:15:08 comparison with prior EKG limited by baseline artifact Electronically Signed On 06-11-2024 14:55:45 [employer]LECT[employer]ICITY TRADER by Ari Ocampo M.D.
[2024-06-11 00:26] LABS: Basophils Absolute Auto 0.1 K/mm3 (0.0-0.1); Basophils Percent Auto 0.5 % (0.2-1.2); Eosinophils Absolute Auto 0.1 K/mm3 (0-0.3); Eosinophils Percent Auto 1.3 % (0-4.4); Hematocrit 35.3 % (42.0-52.0); Hemoglobin 11.7 g/dL (14.0-18.0); Immature Granulocyte Absolute 0.03 K/mm3 (0.00-0.031); Immature Granulocyte Percent A 0.3 % (0-0.5); Lymphocytes Absolute Auto 0.76 K/mm3 (0.9-3.2); Mean Corpuscular HGB Conc 33.1 g/dl (32-36); Mean Corpuscular Hemoglobin 29.4 pg (26-34); Mean Corpuscular Volume 88.7 fl (80-100); Monocytes Percent Auto 9.6 % (2.6-8.5); Neutrophils Absolute Auto 8.8 K/mm3 (1.3-6.7); Neutrophils Percent Auto 81.3 % (45.5-73.1); Platelet Count Result 211 k/mm3 (150-375); Red Blood Count 3.98 M/mm3 (4.6-6.20); Red Cell Distribution Width 14.1 % (11.5-14.5); White Blood Count 10.8 K/mm3 (4.5-10.0)
[2024-06-11 00:32] LABS: Add Urine Microscopic? YES; Appearance Urine Cloudy (Clear); Bacteria Urine None Seen /hpf; Bilirubin Urine Negative (Negative); Blood Urine Negative (Negative); Color Urine Dark Yellow (Yellow); Glucose Urine UA Negative (Negative); Ketones Urine 3+ mg/dL (Negative); Leukocyte Esterase Ur Negative LEU/UL (Negative); Nitrate Urine Negative (Negative); Protein Urine 2+ mg/dL (Negative); RBC Urine 0-2 /hpf (0-2); Specific Grav Ur 1.031 (1.001-1.035); Squamous Epithelial Cell Urine Occasional /hpf (Few); Urobilinogen Urine 0.2 mg/dL (<2.0)
[2024-06-11 00:38] LABS: INR 1.1; Prothrombin Time 15.2 Seconds (11.1-14.7)
[2024-06-11 00:39] LABS: Partial Thromboplastin Time 42.2 Seconds (22.3-36.8)
[2024-06-11 00:52] LABS: Alanine Aminotransferase 17 U/L (6-50); Albumin Level 3.4 g/dL (3.5-5.1); Alkaline Phosphatase 112 U/L (38-126); Anion Gap 8 mmol/L (4-12); Aspartate Amino Transferase 34 U/L (17-59); Blood Urea Nitrogen 24 mg/dL (9-20); Calcium 8.2 mg/dL (8.4-10.2); Carbon Dioxide 22 mmol/L (22-30); Chloride 105 mmol/L (98-107); Estimated CRCL calculation 86 ml/min; Estimated Glomerular Filt Rate > 60; Glucose 109 mg/dL (65-110); Potassium 3.1 mmol/L (3.4-5.0); Sodium 135 mmol/L (137-145)
[2024-06-11 01:03] LABS: Influenza A QL RT-PCR Negative (Negative); Influenza B QL RT-PCR Negative (Negative); RSV RNA, RT-PCR Negative (Negative); SARS-CoV-2 RNA PCR Negative (Negative)
[2024-06-11 02:38] LABS: Ethanol < 10 mg/dL (<10)
[2024-06-11 03:12] LABS: Amphetamine Screen Urine Negative (Negative); Barbiturate Screen Urine Negative (Negative); Benzodiazepines Screen Urine Negative (Negative); Cannabinoid Screen Urine Negative (Negative); Cocaine Screen Urine Negative (Negative); Methadone Screen Urine Negative (Negative); Opiate Screen Urine Negative (Negative); Phencyclidine Screen Urine Negative (Negative)
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
[2024-06-11] MEDS: SODIUM CHLORIDE 0.9% IV 1,000 ML 125 ML IV CONT (11:55)
--- NOTE | 2024-06-11 13:59 | ADMGEN ---
This patient, Tai Amado, was admitted to Virtual Bed 3rd Floor-2. Patient/family oriented to hospital policies and general routines including ID bracelet, bed and alarms, visiting hours, pain management, procedures, bathroom and other care routines, personal items, smoking policy, room service/diet, and visiting hours. Information on how to activate the Rapid Response Team has been discussed. Patient/Family are encouraged to report perceived risks to care and to ask questions if they do not understand what they are told or what they should do.
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
[2024-06-11] MEDS: MEROPENEM 500 MG/NS 100 ML 500 MG/100 ML BAG 200 MG IVPB ×2 (16:09→21:14)
[2024-06-11] MEDS: VANCOMYCIN 1,500 MG/NS 500 ML 1,500 MG/500 ML BAG 250 MG IVPB (17:20)
[2024-06-11 17:42] LABS: Ammonia < 9 umol/L (9-30)
[2024-06-11] MEDS: POTASSIUM CHLORIDE INJ 40 MEQ in SODIUM CHLORIDE 0.9% IV 500 ML 130 MEQ IVPB (18:07)
[2024-06-11 18:34] LABS: Glucose Point of Care 95 mg/dl (65-105)
[2024-06-11] MEDS: ATORVASTATIN 40 MG TABLET 80 MG PO (20:20)
[2024-06-11] MEDS: METOPROLOL TARTRATE 25 MG TABLET PO (20:21)
[2024-06-11] MEDS: PANTOPRAZOLE SODIUM IV 40 MG VIAL IV PUSH (20:21)
[2024-06-12] VITALS (12 sets, daily range): BP systolic 107–154; BP diastolic 53–74; PULSE 60–113; RESP 16–20; TEMP 36–36.8; O2SAT 92–99; BMI 20.9
[2024-06-12] MEDS: SODIUM CHLORIDE 0.9% IV 1,000 ML 125 ML IV CONT ×3 (00:12→21:34)
[2024-06-12 00:54] LABS: Glucose Point of Care 97 mg/dl (65-105)
[2024-06-12] MEDS: VANCOMYCIN 1,500 MG/NS 500 ML 1,500 MG/500 ML BAG 250 MG IVPB ×2 (04:19→22:00)
[2024-06-12 05:41] LABS: Estimated CRCL calculation 75 ml/min; Estimated Glomerular Filt Rate > 60
[2024-06-12] MEDS: MEROPENEM 500 MG/NS 100 ML 500 MG/100 ML BAG 200 MG IVPB ×3 (05:50→21:03)
[2024-06-12 06:14] LABS: Glucose Point of Care 90 mg/dl (65-105)
--- NOTE | 2024-06-12 08:12 | PM.IMPN ---
Progress Note: A&P Assessment and Plan (1) Hallucination: Code(s): R44.3 - Hallucinations, unspecified Status: Acute (2) Hypokalemia: Code(s): E87.6 - Hypokalemia Status: Acute (3) Bacteremia due to Gram-negative bacteria: Code(s): R78.81 - Bacteremia Status: Acute (4) C. difficile diarrhea: Code(s): A04.72 - Enterocolitis due to Clostridium difficile, not specified as recurrent Status: Acute (5) Urinary tract infection due to extended-spectrum beta lactamase (ESBL) producing Escherichia coli: Code(s): N39.0 - Urinary tract infection, site not specified; B96.29 - Other Escherichia coli [E. coli] as the cause of diseases classified elsewhere; Z16.12 - Extended spectrum beta lactamase (ESBL) resistance Status: Acute (6) MRSA nasal colonization: Code(s): Z22.322 - Carrier or suspected carrier of Methicillin resistant Staphylococcus aureus Status: Acute (7) Bacteriuria: Code(s): R82.71 - Bacteriuria Status: Acute (8) Chronic pain syndrome: Code(s): G89.4 - Chronic pain syndrome Status: Acute (9) Confusion: Code(s): R41.0 - Disorientation, unspecified Status: Acute (10) Acute encephalopathy: Code(s): G93.40 - Encephalopathy, unspecified Status: Acute (11) Complicated UTI (urinary tract infection): Code(s): N39.0 - Urinary tract infection, site not specified Status: Acute Plan UTI/Bacteremia -suprapubic catheter -history of ESBL likely colonization Patient is a meropenem IV -blood cultures pending -urine culture grows E coli, pending susceptibility -monitor leukocytosis -monitor vital signs -less suspicious for endocarditis. Adynamic Ileus/Hematoma vs Infection around implanted subcutaneous pump -NPO -consider NG tube if necessary -monitor electrolytes -will consider TPN if necessary -Zofran for nausea -Protonix for GI protection -Surgery consulted -CT chest/abd/pelvis: 1. Asbestosis. 2. Fluid around the implanted subcutaneous pump in left abdomen with signs of recent surgery, likely hematoma. Infection cannot be excluded by imaging. 3. Dilated sigmoid colon, likely adynamic ileus. -Possible soft tissue infection , Vancomycin started 06/12, patient has active bowel sounds, had a bowel movement today. Start clear diet per General surgery recommendation Hallucinations 2/2 Baclofen toxicity vs UTI vs multifactorial -Consulted Neurosurgery -Discussed with Neurosurgery, will help with [employer] associate sales representative to track the Neurosurgeon -UTI discussed above -Hematoma vs Infection around implanted subcutaneous pump discussed above -Hold any sedatives vs anxiolytics -monitor electrolytes -possibly multifactorial 06/12: Resolved Disposition: Baclofen pump management Code status full code No anticoagulation due to hematoma Will call U transfer center according to family wish- Denied Subjective Date/time seen: 06/12/24 08:12 Interval history: Patient is afebrile, blood pressure stable, pulse ox 100% room air. Denies abdomen pain nausea vomiting. Pending labs. 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 Well-nourished. - EYES: EOMI. Anicteric. - HENT: Moist mucous membranes. - LUNGS: Clear to auscultation bilaterally, no wheezing, rhonchi, or rales. - CARDIOVASCULAR: Regular rate and rhythm. No murmur. No JVD. - ABDOMEN: Soft, non-tender and non-distended. No palpable masses. Surgical wound of left lower quadrant is dry and clean, no sign of infection - EXTREMITIES: No edema. Peripheral pulses 2+. Non-tender. - NEUROLOGIC: No focal neurological deficits. CN II-XII grossly intact. - PSYCHIATRIC: Awake, Alert and oriented x 3. Appropriate mood and affect. - SKIN: No rashes or lesions. Warm. - LYMPH: No cervical lymphadenopathy. Objective Data Vital Signs Vital Signs: Vital Signs - 24 hr 06/11/24 08:16 06/11/24 08:31 06/11/24 08:46 Temperature 97.7 F Pulse Rate 94 92 Respiratory Rate 17 20 16 Blood Pressure 124/82 143/97 H 126/63 Pulse Oximetry 99 99 99 Oxygen Delivery 06/11/24 09:16 06/11/24 09:31 06/11/24 10:01 Temperature 97.9 F 97.8 F Pulse Rate 85 86 91 Respiratory Rate 18 18 20 Blood Pressure 105/61 109/73 101/45 L Pulse Oximetry 98 99 98 Oxygen Delivery 06/11/24 10:16 06/11/24 11:25 06/11/24 11:16 Temperature 97.6 F Pulse Rate 93 92 90 Respiratory Rate 20 18 17 Blood Pressure 129/54 L 125/65 119/68 Pulse Oximetry 99 92 97 Oxygen Delivery 06/11/24 11:26 06/11/24 11:32 06/11/24 11:46 Temperature Pulse Rate 92 97 100 Respiratory Rate 19 20 17 Blood Pressure 125/65 120/87 105/84 Pulse Oximetry 98 97 97 Oxygen Delivery 06/11/24 12:01 06/11/24 12:16 06/11/24 12:31 Temperature Pulse Rate 90 107 H 108 H Respiratory Rate 16 19 18 Blood Pressure 103/75 124/50 L 114/80 Pulse Oximetry 95 Oxygen Delivery 06/11/24 12:46 06/11/24 13:17 06/11/24 14:31 Temperature Pulse Rate 107 H 106 H Respiratory Rate 19 22 H Blood Pressure 133/67 143/56 H Pulse Oximetry 95 Oxygen Delivery Room Air 06/11/24 15:39 06/11/24 16:00 06/11/24 20:00 Temperature 97.9 F 98.2 F Pulse Rate 98 96 79 Respiratory Rate 16 16 Blood Pressure 129/65 110/67 Pulse Oximetry 95 91 Oxygen Delivery 06/11/24 20:21 06/11/24 20:20 06/11/24 20:00 Temperature Pulse Rate 76 76 100 Respiratory Rate 16 Blood Pressure Pulse Oximetry 91 Oxygen Delivery Room Air 06/12/24 00:00 06/12/24 00:05 06/12/24 04:01 Temperature 98.3 F Pulse Rate 102 H 103 H 92 Respiratory Rate 16 Blood Pressure 154/73 H Pulse Oximetry 96 Oxygen Delivery 06/12/24 04:00 Temperature 97.5 F L Pulse Rate 113 H Respiratory Rate 20 Blood Pressure 152/74 H Pulse Oximetry 96 Oxygen Delivery Intake/Output Intake/Output: Intake & Output 06/09/24 06/10/24 06/11/24 06/12/24 23:59 23:59 23:59 23:59 Intake Total 700 1000 Output Total 350 350 Balance 350 650 Meds/Results Medications: Active Medications Generic Name Dose Route Start Last Admin Trade Name Freq PRN Reason Stop Dose Admin Acetaminophen 650 mg 06/11/24 11:20 Acetaminophen 325 Mg Tablet PO Q4H PRN Mild Pain (1-3) or Fever Atorvastatin Calcium 80 mg 06/11/24 21:00 06/11/24 20:20 Atorvastatin 40 Mg Tablet PO 80 mg HS NASRIN Administration Dextrose 12.5 gm 06/11/24 15:20 Dextrose 50% 25 Gm/50 Ml Syringe IV PUSH PRN PRN Hypoglycemia Protocol Glucagon 1 mg 06/11/24 15:20 Glucagon For Inj 1 Mg Vial IM PRN PRN Hypoglycemia Protocol Glucose 15 gm 06/11/24 15:20 Glucose Oral Gel 15 Gm Of Glucse In 37.5 Gm Tube PO PRN PRN Hypoglycemia Protocol Hydralazine HCl 50 mg 06/11/24 17:50 Hydralazine Hcl 50 Mg Tablet PO DAILY PRN Hypertension Sodium Chloride 1,000 mls @ 125 mls/hr 06/11/24 11:20 06/12/24 00:12 Normal Saline Iv IV CONT 125 mls/hr .Q8H NASRIN Administration Dextrose 1,000 mls @ 100 mls/hr 06/11/24 15:20 Dextrose 5% 1,000 Ml IVPB PRN PRN Hypoglycemia Protocol Meropenem 500 mg in 100 mls @ 200 mls/hr 06/11/24 15:35 06/12/24 05:50 IVPB 200 mls/hr Q8HR NASRIN Administration Vancomycin HCl 1,500 mg in 500 mls @ 250 mls/hr 06/12/24 23:00 Vancomycin 1,500 Mg/Ns 500 Ml IVPB Q18H NASRIN Insulin Aspart 2 - 5 units 06/11/24 18:00 06/12/24 06:14 Insulin Aspart (*Bkc) 100 Units/Ml SUB-Q Not Given Q6HR NASRIN Protocol Metoprolol Tartrate 25 mg 06/11/24 21:00 06/11/24 20:21 Metoprolol Tartrate 25 Mg Tablet PO 25 mg Q12HR NASRIN Administration Mirabegron 25 mg 06/12/24 09:00 Mirabegron 25 Mg Er Tablet PO DAILY NASRIN Methenamine 1 each 06/11/24 17:00 06/11/24 18:53 Hippurate [Hiprex] 1 PO 07/11/24 16:59 Not Given Gram BID NASRIN Ondansetron HCl 4 mg 06/11/24 16:19 Ondansetron Inj 4 Mg/2 Ml Vial IV PUSH Q6H PRN Nausea And Vomiting Pantoprazole Sodium 40 mg 06/11/24 21:00 06/11/24 20:21 Pantoprazole Sodium Iv 40 Mg Vial IV PUSH 40 mg Q12HR NASRIN Administration Polyethylene Glycol 17 gm 06/11/24 17:50 Polyethylene Glycol 3350 17 Gm Powd.Pack PO DAILY PRN Constipation Potassium Chloride 40 meq 06/11/24 17:00 06/11/24 17:31 Potassium Chloride 20 Meq Packet (For Liquid) PO Not Given BID NASRIN Radiology Results: ITS Impressions Chest X-Ray 06/11/24 06:55 IMPRESSION: 1. Chronic lung disease at the lung bases. Head CT 06/11/24 07:12 IMPRESSION: 1. 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 Chest/Abdomen/Pelvis CT 06/11/24 08:00 IMPRESSION: 1. Asbestosis. 2. Fluid around the implanted subcutaneous pump in left abdomen with signs of recent surgery, likely hematoma. Infection cannot be excluded by imaging. 3. Dilated sigmoid colon, likely adynamic ileus. Labs Labs: Laboratory Results - last 24 hr 06/11/24 06/11/24 06/12/24 17:24 17:43 00:02 Creatinine Estim Creat Clear Calc Estimated GFR POC Capillary Glucose 95 97 Ammonia < 9 L 06/12/24 06/12/24 05:07 05:34 Creatinine 0.80 Estim Creat Clear Calc 75 Estimated GFR > 60 POC Capillary Glucose 90 Ammonia
[2024-06-12 08:55] LABS: Basophils Percent Auto 0.4 % (0.2-1.2); Eosinophils Absolute Auto 0.1 K/mm3 (0-0.3); Eosinophils Percent Auto 0.9 % (0-4.4); Hematocrit 32.1 % (42.0-52.0); Hemoglobin 10.1 g/dL (14.0-18.0); Immature Granulocyte Absolute 0.04 K/mm3 (0.00-0.031); Immature Granulocyte Percent A 0.4 % (0-0.5); Lymphocytes Absolute Auto 0.76 K/mm3 (0.9-3.2); Lymphocytes Percent Auto 8.5 % (18.3-44.2); Mean Corpuscular HGB Conc 31.5 g/dl (32-36); Mean Corpuscular Volume 92.2 fl (80-100); Mean Platelet Volume 11.3 fl (7.4-10.4); Monocytes Percent Auto 10.6 % (2.6-8.5); Neutrophils Absolute Auto 7.1 K/mm3 (1.3-6.7); Neutrophils Percent Auto 79.2 % (45.5-73.1); Platelet Count Result 186 k/mm3 (150-375); Red Blood Count 3.48 M/mm3 (4.6-6.20); Red Cell Distribution Width 14.6 % (11.5-14.5)
[2024-06-12 09:18] LABS: Anion Gap 11 mmol/L (4-12); Blood Urea Nitrogen 18 mg/dL (9-20); Calcium 7.7 mg/dL (8.4-10.2); Carbon Dioxide 19 mmol/L (22-30); Chloride 111 mmol/L (98-107); Estimated CRCL calculation 75 ml/min; Estimated Glomerular Filt Rate > 60; Glucose 86 mg/dL (65-110); Potassium 2.8 mmol/L (3.4-5.0); Sodium 141 mmol/L (137-145)
[2024-06-12] MEDS: METHENAMINE HIPPURATE 1 GM 1 EACH PO ×2 (09:41→16:54)
[2024-06-12] MEDS: MIRABEGRON 25 MG ER TABLET PO (09:41)
[2024-06-12] MEDS: METOPROLOL TARTRATE 25 MG TABLET PO ×2 (09:41→20:20)
[2024-06-12] MEDS: POTASSIUM CHLORIDE 20 MEQ PACKET (FOR LIQUID) 40 MEQ PO ×2 (09:42→16:55)
[2024-06-12] MEDS: PANTOPRAZOLE SODIUM IV 40 MG VIAL IV PUSH ×2 (09:44→20:29)
[2024-06-12] MEDS: POTASSIUM CHLORIDE INJ 40 MEQ in SODIUM CHLORIDE 0.9% IV 500 ML 130 MEQ IVPB (09:50)
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
[2024-06-12 11:32] LABS: Glucose Point of Care 81 mg/dl (65-105)
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
[2024-06-12 18:38] LABS: Glucose Point of Care 121 mg/dl (65-105)
[2024-06-12 18:49] LABS: Cholesterol 104 mg/dL (0-200); HDL Direct 27 mg/dL; Triglycerides 78 mg/dL (<150)
[2024-06-12 19:00] LABS: LDL Cholesterol Direct 49 mg/dL
[2024-06-12 19:18] LABS: Vitamin D 25 Hydroxy 41.3 ng/mL
[2024-06-12 20:02] LABS: Folic Acid > 20.0 ng/mL (2.76->20); Vitamin B12 > 1000.0 pg/mL (239-931)
[2024-06-12] MEDS: ATORVASTATIN 40 MG TABLET 80 MG PO (20:20)
[2024-06-13] VITALS (10 sets, daily range): BP systolic 144–168; BP diastolic 58–65; PULSE 53–70; RESP 16–18; TEMP 36.3–36.7; O2SAT 96–99
[2024-06-13] MEDS: MEROPENEM 500 MG/NS 100 ML 500 MG/100 ML BAG 200 MG IVPB ×2 (05:00→13:37)
[2024-06-13] MEDS: SODIUM CHLORIDE 0.9% IV 1,000 ML 125 ML IV CONT ×2 (05:00→13:35)
[2024-06-13 07:17] LABS: Basophils Percent Auto 0.4 % (0.2-1.2); Eosinophils Absolute Auto 0.3 K/mm3 (0-0.3); Eosinophils Percent Auto 3.5 % (0-4.4); Hematocrit 32.9 % (42.0-52.0); Hemoglobin 10.2 g/dL (14.0-18.0); Immature Granulocyte Absolute 0.04 K/mm3 (0.00-0.031); Immature Granulocyte Percent A 0.6 % (0-0.5); Lymphocytes Absolute Auto 0.64 K/mm3 (0.9-3.2); Lymphocytes Percent Auto 8.9 % (18.3-44.2); Mean Corpuscular Hemoglobin 29.4 pg (26-34); Mean Corpuscular Volume 94.8 fl (80-100); Mean Platelet Volume 11.1 fl (7.4-10.4); Monocytes Absolute Auto 0.6 K/mm3 (0.1-0.6); Neutrophils Absolute Auto 5.7 K/mm3 (1.3-6.7); Neutrophils Percent Auto 78.6 % (45.5-73.1); Platelet Count Result 165 k/mm3 (150-375); Red Blood Count 3.47 M/mm3 (4.6-6.20); Red Cell Distribution Width 14.6 % (11.5-14.5); White Blood Count 7.2 K/mm3 (4.5-10.0)
[2024-06-13 08:06] LABS: Anion Gap 5 mmol/L (4-12); Blood Urea Nitrogen 13 mg/dL (9-20); Calcium 7.8 mg/dL (8.4-10.2); Carbon Dioxide 22 mmol/L (22-30); Chloride 115 mmol/L (98-107); Estimated CRCL calculation 97 ml/min; Estimated Glomerular Filt Rate > 60; Glucose 98 mg/dL (65-110); Potassium 3.3 mmol/L (3.4-5.0); Sodium 142 mmol/L (137-145)
--- NOTE | 2024-06-13 09:06 | PM.IMPN ---
Progress Note: A&P Assessment and Plan (1) Hallucination: Code(s): R44.3 - Hallucinations, unspecified Status: Acute (2) Hypokalemia: Code(s): E87.6 - Hypokalemia Status: Acute (3) Bacteremia due to Gram-negative bacteria: Code(s): R78.81 - Bacteremia Status: Acute (4) C. difficile diarrhea: Code(s): A04.72 - Enterocolitis due to Clostridium difficile, not specified as recurrent Status: Acute (5) Urinary tract infection due to extended-spectrum beta lactamase (ESBL) producing Escherichia coli: Code(s): N39.0 - Urinary tract infection, site not specified; B96.29 - Other Escherichia coli [E. coli] as the cause of diseases classified elsewhere; Z16.12 - Extended spectrum beta lactamase (ESBL) resistance Status: Acute (6) MRSA nasal colonization: Code(s): Z22.322 - Carrier or suspected carrier of Methicillin resistant Staphylococcus aureus Status: Acute (7) Bacteriuria: Code(s): R82.71 - Bacteriuria Status: Acute (8) Chronic pain syndrome: Code(s): G89.4 - Chronic pain syndrome Status: Acute (9) Confusion: Code(s): R41.0 - Disorientation, unspecified Status: Acute (10) Acute encephalopathy: Code(s): G93.40 - Encephalopathy, unspecified Status: Acute (11) Complicated UTI (urinary tract infection): Code(s): N39.0 - Urinary tract infection, site not specified Status: Acute Plan UTI/Bacteremia -suprapubic catheter -history of ESBL likely colonization -started on meropenem IV -blood cultures : NO GROWTH -urine culture : NO GROWTH -monitor leukocytosis -monitor vital signs: STABLE No sign of endocarditis. Changed to Bactrim p.o. Adynamic Ileus/Hematoma vs Infection around implanted subcutaneous pump -NPO -consider NG tube if necessary -monitor electrolytes -will consider TPN if necessary -Zofran for nausea -Protonix for GI protection -Surgery consulted -CT chest/abd/pelvis: 1. Asbestosis. 2. Fluid around the implanted subcutaneous pump in left abdomen with signs of recent surgery, likely hematoma. Infection cannot be excluded by imaging. 3. Dilated sigmoid colon, likely adynamic ileus. -Possible soft tissue infection , Vancomycin started 06/12, patient has active bowel sounds, had a bowel movement today. Start clear diet per General surgery recommendation, no sign of infection of the pocket, dc vancomycin 06/13 tolerate diet well, urine culture and blood culture no growth of bacteria, Hallucinations 2/2 Baclofen toxicity vs UTI vs multifactorial -Consulted Neurosurgery -Discussed with Neurosurgery, will help with [employer] wire rope sales representative to track the Neurosurgeon -UTI discussed above -Hematoma vs Infection around implanted subcutaneous pump discussed above -Hold any sedatives vs anxiolytics -monitor electrolytes -possibly multifactorial Appreciation neurologist consultation, suspecting resulting from urinary infection Carotid hallucination has resolved Disposition: Baclofen pump management Code status full code No anticoagulation due to hematoma Will call [facility] transfer center according to family wish- Denied Patient will be discharged to intermediate today Subjective Date/time seen: 06/13/24 09:06 Interval history: Patient has no new issue even over the night. Patient is afebrile, blood pressure stable, patient tolerated diet well, patient denies abdomen pain nausea vomiting. Patient had 1 bowel movement Exam Narrative: GENERAL: Pleasant, in no acute distress. Well-nourished. - EYES: EOMI. Anicteric. - HENT: Moist mucous membranes. - LUNGS: Clear to auscultation bilaterally, no wheezing, rhonchi, or rales. - CARDIOVASCULAR: Regular rate and rhythm. No murmur. No JVD. - ABDOMEN: Soft, non-tender and non-distended. No palpable masses. Surgical wound of left lower quadrant is dry and clean, no sign of infection - EXTREMITIES: No edema. Peripheral pulses 2+. Non-tender. - NEUROLOGIC: No focal neurological deficits. CN II-XII grossly intact. - PSYCHIATRIC: Awake, Alert and oriented x 3. Appropriate mood and affect. - SKIN: No rashes or lesions. Warm. - LYMPH: No cervical lymphadenopathy. Objective Data Vital Signs Vital Signs: Vital Signs - 24 hr 06/12/24 09:39 06/12/24 09:41 06/12/24 09:41 Temperature 97.2 F L Pulse Rate 83 84 Respiratory Rate 18 Blood Pressure 143/63 H Pulse Oximetry 98 Oxygen Delivery Room Air 06/12/24 09:41 06/12/24 12:00 06/12/24 12:00 Temperature 97.6 F Pulse Rate 84 65 67 Respiratory Rate 17 Blood Pressure 107/53 L Pulse Oximetry 98 Oxygen Delivery 12/09/24 16:00 06/12/24 16:00 06/12/24 20:00 Temperature 96.8 F L Pulse Rate 61 62 61 Respiratory Rate 16 Blood Pressure 132/56 L Pulse Oximetry 98 Oxygen Delivery 06/12/24 20:00 06/12/24 20:20 06/12/24 20:20 Temperature 98.2 F Pulse Rate 60 60 Respiratory Rate 18 Blood Pressure 147/61 H Pulse Oximetry 99 Oxygen Delivery Room Air 06/13/24 00:00 06/13/24 00:05 06/13/24 04:00 Temperature 97.4 F L 97.3 F L Pulse Rate 58 L 56 L 60 Respiratory Rate 18 18 Blood Pressure 144/60 H 168/64 H Pulse Oximetry 98 96 Oxygen Delivery 06/13/24 04:01 Temperature Pulse Rate 59 L Respiratory Rate Blood Pressure Pulse Oximetry Oxygen Delivery Intake/Output Intake/Output: Intake & Output 06/10/24 06/11/24 06/12/24 06/13/24 23:59 23:59 23:59 23:59 Intake Total 700 4200 1350 Output Total 605 391 1265 Balance 350 3450 -50 Meds/Results Medications: Active Medications Generic Name Dose Route Start Last Admin Trade Name Freq PRN Reason Stop Dose Admin Acetaminophen 650 mg 06/11/24 11:20 Acetaminophen 325 Mg Tablet PO Q4H PRN Mild Pain (1-3) or Fever Atorvastatin Calcium 80 mg 06/11/24 21:00 06/12/24 20:20 Atorvastatin 40 Mg Tablet PO 80 mg HS NASRIN Administration Dextrose 12.5 gm 06/11/24 15:20 Dextrose 50% 25 Gm/50 Ml Syringe IV PUSH PRN PRN Hypoglycemia Protocol Glucagon 1 mg 06/11/24 15:20 Glucagon For Inj 1 Mg Vial IM PRN PRN Hypoglycemia Protocol Glucose 15 gm 06/11/24 15:20 Glucose Oral Gel 15 Gm Of Glucse In 37.5 Gm Tube PO PRN PRN Hypoglycemia Protocol Hydralazine HCl 50 mg 06/11/24 17:50 Hydralazine Hcl 50 Mg Tablet PO DAILY PRN Hypertension Sodium Chloride 1,000 mls @ 125 mls/hr 06/11/24 11:20 06/13/24 05:00 Normal Saline Iv IV CONT 125 mls/hr .Q8H NASRIN Administration Dextrose 1,000 mls @ 100 mls/hr 06/11/24 15:20 Dextrose 5% 1,000 Ml IVPB PRN PRN Hypoglycemia Protocol Vancomycin HCl 1,500 mg in 500 mls @ 250 mls/hr 06/12/24 23:00 06/12/24 22:00 Vancomycin 1,500 Mg/Ns 500 Ml IVPB 250 mls/hr Q18H NASRIN Administration Meropenem 500 mg in 100 mls @ 200 mls/hr 06/12/24 22:00 06/13/24 05:00 IVPB 200 mls/hr Q8HR NASRIN Administration Insulin Aspart 2 - 5 units 06/11/24 18:00 06/13/24 07:02 Insulin Aspart (*Bkc) 100 Units/Ml SUB-Q Not Given Q6HR NASRIN Protocol Metoprolol Tartrate 25 mg 06/11/24 21:00 06/12/24 20:20 Metoprolol Tartrate 25 Mg Tablet PO 25 mg Q12HR NASRIN Administration Mirabegron 25 mg 06/12/24 09:00 06/12/24 09:41 Mirabegron 25 Mg Er Tablet PO 25 mg DAILY NASRIN Administration Methenamine 1 each 06/11/24 17:00 06/12/24 16:54 Hippurate [Hiprex] 1 PO 07/11/24 16:59 1 each Gram BID NASRIN Administration Ondansetron HCl 4 mg 06/11/24 16:19 Ondansetron Inj 4 Mg/2 Ml Vial IV PUSH Q6H PRN Nausea And Vomiting Pantoprazole Sodium 40 mg 06/11/24 21:00 06/12/24 20:29 Pantoprazole Sodium Iv 40 Mg Vial IV PUSH 40 mg Q12HR NASRIN Administration Polyethylene Glycol 17 gm 06/11/24 17:50 Polyethylene Glycol 3350 17 Gm Powd.Pack PO DAILY PRN Constipation Potassium Chloride 40 meq 06/11/24 17:00 06/12/24 16:55 Potassium Chloride 20 Meq Packet (For Liquid) PO 40 meq BID NASRIN Administration Radiology Results: ITS Impressions Chest X-Ray 06/11/24 06:55 IMPRESSION: 1. Chronic lung disease at the lung bases. Head CT 06/11/24 07:12 IMPRESSION: 1. 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 Chest/Abdomen/Pelvis CT 06/11/24 08:00 IMPRESSION: 1. Asbestosis. 2. Fluid around the implanted subcutaneous pump in left abdomen with signs of recent surgery, likely hematoma. Infection cannot be excluded by imaging. 3. Dilated sigmoid colon, likely adynamic ileus. Carotid Doppler Study 06/13/24 08:50 IMPRESSION: 1. <50% stenosis in the right internal carotid artery. 2. <50% stenosis in the left internal carotid artery. Labs Labs: Laboratory Results - last 24 hr 06/12/24 06/12/24 06/12/24 05:07 11:27 18:28 WBC 9.0 RBC 3.48 L Hgb 10.1 L Hct 32.1 L MCV 92.2 MCH 29.0 MCHC 31.5 L RDW 14.6 H Plt Count 186 MPV 11.3 H Immature Gran % (Auto) 0.4 Neut % (Auto) 79.2 H Lymph % (Auto) 8.5 L [place] % (Auto) 10.6 H Eos % (Auto) 0.9 Baso % (Auto) 0.4 Lymph # (Auto) 0.76 L [place] # (Auto) 1.0 H Eos # (Auto) 0.1 Baso # (Auto) 0.0 Abs Immat Gran (auto) 0.04 H Absolute Neuts (auto) 7.1 H Absolute Nucleated RBC 0.000 Nucleated RBC % 0.0 Sodium 141 Potassium 2.8 L* Chloride 111 H Carbon Dioxide 19 L Anion Gap 11 BUN 18 Creatinine 0.80 Estim Creat Clear Calc 75 Estimated GFR > 60 Glucose 86 POC Capillary Glucose 81 Calcium 7.7 L Triglycerides 78 Cholesterol 104 LDL Cholesterol Direct 49 HDL Direct 27 Vitamin B12 > 1000.0 H Vitamin D 25-Hydroxy 41.3 Folate > 20.0 H 06/12/24 06/13/24 18:35 05:24 WBC 7.2 RBC 3.47 L Hgb 10.2 L Hct 32.9 L MCV 94.8 MCH 29.4 MCHC 31.0 L RDW 14.6 H Plt Count 165 MPV 11.1 H Immature Gran % (Auto) 0.6 H Neut % (Auto) 78.6 H Lymph % (Auto) 8.9 L [place] % (Auto) 8.0 Eos % (Auto) 3.5 Baso % (Auto) 0.4 Lymph # (Auto) 0.64 L [place] # (Auto) 0.6 Eos # (Auto) 0.3 Baso # (Auto) 0.0 Abs Immat Gran (auto) 0.04 H Absolute Neuts (auto) 5.7 Absolute Nucleated RBC 0.000 Nucleated RBC % 0.0 Sodium 142 Potassium 3.3 L Chloride 115 H Carbon Dioxide 22 Anion Gap 5 BUN 13 D Creatinine 0.60 L Estim Creat Clear Calc 97 Estimated GFR > 60 Glucose 98 POC Capillary Glucose 121 H Calcium 7.8 L Triglycerides Cholesterol LDL Cholesterol Direct HDL Direct Vitamin B12 Vitamin D 25-Hydroxy Folate
--- NOTE | 2024-06-13 09:17 | P.DS_ITS ---
DS: Admitting Diagnosis Discharge Date 06/13 Admitting Diagnosis (1) Hallucination: Code(s): R44.3 - Hallucinations, unspecified Status: Acute (2) Hypokalemia: Code(s): E87.6 - Hypokalemia Status: Acute (3) Bacteremia due to Gram-negative bacteria: Code(s): R78.81 - Bacteremia Status: Acute (4) C. difficile diarrhea: Code(s): A04.72 - Enterocolitis due to Clostridium difficile, not specified as recurrent Status: Acute (5) Urinary tract infection due to extended-spectrum beta lactamase (ESBL) producing Escherichia coli: Code(s): N39.0 - Urinary tract infection, site not specified; B96.29 - Other Escherichia coli [E. coli] as the cause of diseases classified elsewhere; Z16.12 - Extended spectrum beta lactamase (ESBL) resistance Status: Acute (6) MRSA nasal colonization: Code(s): Z22.322 - Carrier or suspected carrier of Methicillin resistant Staphylococcus aureus Status: Acute (7) Bacteriuria: Code(s): R82.71 - Bacteriuria Status: Acute (8) Chronic pain syndrome: Code(s): G89.4 - Chronic pain syndrome Status: Acute (9) Confusion: Code(s): R41.0 - Disorientation, unspecified Status: Acute (10) Acute encephalopathy: Code(s): G93.40 - Encephalopathy, unspecified Status: Acute (11) Complicated UTI (urinary tract infection): Code(s): N39.0 - Urinary tract infection, site not specified Status: Acute DS: Discharge Diagnosis Discharge Diagnosis (1) Hallucination: Code(s): R44.3 - Hallucinations, unspecified Status: Acute (2) Hypokalemia: Code(s): E87.6 - Hypokalemia Status: Acute (3) Bacteremia due to Gram-negative bacteria: Code(s): R78.81 - Bacteremia Status: Acute (4) C. difficile diarrhea: Code(s): A04.72 - Enterocolitis due to Clostridium difficile, not specified as recurrent Status: Acute (5) Urinary tract infection due to extended-spectrum beta lactamase (ESBL) producing Escherichia coli: Code(s): N39.0 - Urinary tract infection, site not specified; B96.29 - Other Escherichia coli [E. coli] as the cause of diseases classified elsewhere; Z16.12 - Extended spectrum beta lactamase (ESBL) resistance Status: Acute (6) MRSA nasal colonization: Code(s): Z22.322 - Carrier or suspected carrier of Methicillin resistant Staphylococcus aureus Status: Acute (7) Bacteriuria: Code(s): R82.71 - Bacteriuria Status: Acute (8) Chronic pain syndrome: Code(s): G89.4 - Chronic pain syndrome Status: Acute (9) Confusion: Code(s): R41.0 - Disorientation, unspecified Status: Acute (10) Acute encephalopathy: Code(s): G93.40 - Encephalopathy, unspecified Status: Acute (11) Complicated UTI (urinary tract infection): Code(s): N39.0 - Urinary tract infection, site not specified Status: Acute DS: Summary Hospital Course Hospital Course: Per H&P: 74-year-old male with history of 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 On review of his chart, he has been treated with multiple different antibiotics for urinary tract infections this year, at least 10 times this year upon review of his external medication history. Last urine culture taken 03/09/2024 grew out ESBL Escherichia coli for which he was treated with nitrofurantoin. Reviewing current ED document it reveals patient underwent [facility]aclofen pump at [facility]. ED physician spoke to Neurosurgeon operations and maintenance technican and has been told he was on the same dose of Baclofen prior to the procedure and advise to consult neurologist. Not able to verify from ED document whether he has been accepted or denied transfer. The following med issues have been addressed during hospitalization UTI/Bacteremia -suprapubic catheter -history of ESBL likely colonization -started on meropenem IV -blood cultures : NO GROWTH -urine culture : NO GROWTH -monitor leukocytosis -monitor vital signs: STABLE No sign of endocarditis. pt has no sign of UTI now. discharge pt without oral abx. Adynamic Ileus/Hematoma vs Infection around implanted subcutaneous pump -NPO -consider NG tube if necessary -monitor electrolytes -will consider TPN if necessary -Zofran for nausea -Protonix for GI protection -Surgery consulted -CT chest/abd/pelvis: 1. Asbestosis. 2. Fluid around the implanted subcutaneous pump in left abdomen with signs of recent surgery, likely hematoma. Infection cannot be excluded by imaging. 3. Dilated sigmoid colon, likely adynamic ileus. -Possible soft tissue infection , Vancomycin started 06/12, patient has active bowel sounds, had a bowel movement today. Start clear diet per General surgery recommendation, no sign of infection of the pocket, dc vancomycin 06/13 tolerate diet well, urine culture and blood culture no growth of bacteria, Hallucinations 2/2 Baclofen toxicity vs UTI vs multifactorial -Consulted Neurosurgery -Discussed with Neurosurgery, will help with [employer] authorization representative to track the Neurosurgeon -UTI discussed above -Hematoma vs Infection around implanted subcutaneous pump discussed above -Hold any sedatives vs anxiolytics -monitor electrolytes -possibly multifactorial Appreciation neurologist consultation, suspecting resulting from urinary infection Carotid hallucination has resolved Disposition: Baclofen pump management Code status full code No anticoagulation due to hematoma Will call [facility] transfer center according to family wish- Denied [facility] today Time Spent with Patient Time attestation: Total time spent providing and/or coordinating discharge services: Exam Narrative: GENERAL: Pleasant, in no acute distress. Well-nourished. - EYES: EOMI. Anicteric. - HENT: Moist mucous membranes. - LUNGS: Clear to auscultation bilateral ly, no wheezing, rhonchi, or rales. - CARDIOVASCULAR: Regular rate and rhyth m. No murmur. No JVD. - ABDOMEN: Soft, non-tender and non-dist ended. No palpable masses. Surgical wound of left lower quadrant is dry and clean, no sign of infection - EXTREMITIES: No edema. Peripheral puls es 2+. Non-tender. - NEUROLOGIC: No focal neurological defi cits. CN II-XII grossly intact. - PSYCHIATRIC: Awake, Alert and oriented x 3. Appropriate mood and affect. - SKIN: No rashes or lesions. Warm. - LYMPH: No cervical lymphadenopathy. DS: Data Data Completed and Pending Labs on day of discharge: Labs from last 24 hours 06/13/24 06/12/24 06/12/24 05:24 18:35 18:28 WBC 7.2 RBC 3.47 L Hgb 10.2 L Hct 32.9 L MCV 94.8 MCH 29.4 MCHC 31.0 L RDW 14.6 H Plt Count 165 MPV 11.1 H Immature Gran % (Auto) 0.6 H Neut % (Auto) 78.6 H Lymph % (Auto) 8.9 L Berg[place] % (Auto) 8.0 Eos % (Auto) 3.5 Baso % (Auto) 0.4 Lymph # (Auto) 0.64 L Berg[place] # (Auto) 0.6 Eos # (Auto) 0.3 Baso # (Auto) 0.0 Abs Immat Gran (auto) 0.04 H Absolute Neuts (auto) 5.7 Absolute Nucleated RBC 0.000 Nucleated RBC % 0.0 Sodium 142 Potassium 3.3 L Chloride 115 H Carbon Dioxide 22 Anion Gap 5 BUN 13 D Creatinine 0.60 L Estim Creat Clear Calc 97 Estimated GFR > 60 Glucose 98 POC Capillary Glucose 121 H Calcium 7.8 L Triglycerides 78 Cholesterol 104 LDL Cholesterol Direct 49 HDL Direct 27 Vitamin B12 > 1000.0 H Methylmalonic Acid Pending Vitamin D 25-Hydroxy 41.3 Folate > 20.0 H 06/12/24 06/12/24 11:27 05:07 WBC RBC Hgb Hct MCV MCH MCHC RDW Plt Count MPV Immature Gran % (Auto) Neut % (Auto) Lymph % (Auto) Berg[place] % (Auto) Eos % (Auto) Baso % (Auto) Lymph # (Auto) Bergen # (Auto) Eos # (Auto) Baso # (Auto) Abs Immat Gran (auto) Absolute Neuts (auto) Absolute Nucleated RBC Nucleated RBC % Sodium 141 Potassium 2.8 L* Chloride 111 H Carbon Dioxide 19 L Anion Gap 11 BUN 18 Creatinine 0.80 Estim Creat Clear Calc 75 Estimated GFR > 60 Glucose 86 POC Capillary Glucose 81 Calcium 7.7 L Triglycerides Cholesterol LDL Cholesterol Direct HDL Direct Vitamin B12 Methylmalonic Acid Vitamin D 25-Hydroxy Folate Preliminary micro results at discharge 06/11/24 03:38 Blood Culture - Preliminary Blood 06/11/24 03:49 Blood Culture - Preliminary Blood Discharge Plan Discharge Attending physician on discharge: Hieu Davenport Consulting providers: Florencio Scherer; Cassie Marsh; Brannon Oakley Discharging Clinician: Hieu Davenport Anticipated Discharge Date/Time: 06/13/24 15:15 Patient Disposition: SNF Activity: as tolerated Diet: as tolerated and heart healthy Patient Language: Luxembourger Stand Alone Forms: General Discharge Information Follow-up/Referrals: Ampadu,MD Rod [Primary Care Provider] - (Patient needs to see primary care doctor in 1 week) Discharge Medications: Continued magnesium citrate [OneLAX Magnesium Citrate] Solution 150 ml PO DAILY PRN (Reason: constipation) Qty: 296 0RF metoprolol tartrate 25 mg tablet 25 mg PO Q12H methenamine hippurate [Hiprex] 1 gram Tablet 1 g PO BID pantoprazole [Protonix] 40 mg Tablet,Delayed Release (Dr/Ec) 40 mg PO Q12H ascorbic acid (vitamin C) 500 mg Tablet,Chewable 500 mg PO DAILY ibuprofen 400 mg Tablet 800 mg PO Q6-8H PRN (Reason: Pain) acidophilus-pectin, citrus 100 million cell-10 mg Capsule 1 cap PO BID cranberry 450 mg Tablet 450 mg PO BID Rx Instructions: administer with meals hydroxyzine HCl 25 mg tablet 25 mg PO TID PRN (Reason: Anxiety) atorvastatin 80 mg Tablet 80 mg PO HS acetaminophen tablet 1,000 mg PO Q6H PRN (Reason: Pain) ferrous sulfate 325 mg (65 mg iron) Tablet 325 mg PO EVERY OTHER DAY folic acid 1 mg PO DAILY@1200 pregabalin [Lyrica] 100 mg Capsule 50 mg PO BID polyethylene glycol 3350 [Miralax] 17 gram/dose Powder 17 g PO DAILY PRN (Reason: Constipation) [id number] cb#1 11-11 % Cream 1 applic TOPICAL Q4H PRN (Reason: Pain) Rx Instructions: apply to back mirabegron 25 mg Tablet Extended Release 24 Hr 25 mg PO DAILY guaifenesin [Mucinex] 600 mg Tablet Extended Release 12hr 600 mg PO Q12H PRN (Reason: Allergic Symptoms) simethicone [Gas Relief (simethicone)] 80 mg Tablet,Chewable 125 mg PO BID PRN (Reason: Indigestion) hydralazine 50 mg Tablet 50 mg PO DAILY PRN (Reason: Hypertension) Rx Instructions: BP>160/80 naloxone 4 mg/actuation spray,non-aerosol 1 spray INTRANASAL DIRECTED PRN (Reason: Opiate Reversal) Date of admission: 06/11/24 11:20 Primary Care Provider: JacquelynRod Admitting Provider: Dexter Damian Attending physician on admission: Dexter Damian Condition: Stable
[2024-06-13] MEDS: ACETAMINOPHEN 325 MG TABLET 650 MG PO (09:25)
[2024-06-13] MEDS: MIRABEGRON 25 MG ER TABLET PO (09:26)
[2024-06-13] MEDS: METOPROLOL TARTRATE 25 MG TABLET PO (09:26)
[2024-06-13] MEDS: POTASSIUM CHLORIDE 20 MEQ PACKET (FOR LIQUID) 40 MEQ PO ×2 (09:27→17:07)
[2024-06-13] MEDS: METHENAMINE HIPPURATE 1 GM 1 EACH PO ×2 (09:29→17:08)
[2024-06-13] MEDS: PANTOPRAZOLE SODIUM IV 40 MG VIAL IV PUSH (09:30)
[2024-06-13 12:07] LABS: Glucose Point of Care 106 mg/dl (65-105)
--- NOTE | 2024-06-13 14:41 | P.PNGS_ITS ---
Progress Note: A&P Assessment and Plan (1) Presence of implanted infusion pump: Code(s): Z95.828 - Presence of other vascular implants and grafts Status: Acute Assessment and Plan: * S/p replacement of baclofen infusion pump in the LLQ at [facility] within the past few weeks. No signs of infection on exam. Likely seroma vs hematoma. * Continue daily dressing changes. * Okay to discharge from a surgical standpoint and follow-up with his surgeon at [facility] after discharge as scheduled for staple removal and wound check. (2) Ileus: Code(s): K56.7 - Ileus, unspecified Status: Acute Assessment and Plan: * Bowels are moving and his abdominal exam is benign. Advance to soft diet. * Okay to discharge if tolerating a solid diet later today. (3) Quadriplegia, C5-C7, incomplete: Code(s): G82.54 - Quadriplegia, C5-C7 incomplete Status: Acute Plan I have discussed the patient's case and plan of care with Dr. Marsh. Subjective Subjective Date/Time Seen: 06/13/24 14:41 Patient reports: no new complaints, tolerating liquids well, flatus and bowel movement Interval history: Patient has had multiple bowel movements since yesterday. No abdominal pain, nausea, or vomiting. He is tolerating full liquids and has been advanced to a soft diet this afternoon. His tray just arrived to start eating. Exam Const: General: comfortable and no acute distress Orientation/consciousness: patient oriented x3 GI: Inspection: non-distended GI Palp: Yes Soft to palpation, No Tenderness to palpation present (GI), No Guarding due to palpation present (GI) and No R ebound tenderness present Auscultation: normal bowel sounds Other: LLQ incision with jorge intact and bloody drainage, implanted pump inferior to incision with some localized swelling that is unchanged from yesterday. No erythema or purulent drainage. No tenderness in this area. Objective Data Vital Signs Vital Signs: Vital Signs - 24 hr 06/12/24 16:00 06/12/24 16:00 06/12/24 20:00 Temperature 96.8 F L Pulse Rate 61 62 61 Respiratory Rate 16 Blood Pressure 132/56 L Pulse Oximetry 98 Oxygen Delivery 06/12/24 20:00 06/12/24 20:20 06/12/24 20:20 Temperature 98.2 F Pulse Rate 60 60 Respiratory Rate 18 Blood Pressure 147/61 H Pulse Oximetry 99 Oxygen Delivery Room Air 06/13/24 00:00 06/13/24 00:05 06/13/24 04:00 Temperature 97.4 F L 97.3 F L Pulse Rate 58 L 56 L 60 Respiratory Rate 18 18 Blood Pressure 144/60 H 168/64 H Pulse Oximetry 98 96 Oxygen Delivery 06/13/24 04:01 06/13/24 09:20 06/13/24 09:26 Temperature 98.1 F Pulse Rate 59 L 68 67 Respiratory Rate 18 Blood Pressure 154/59 H Pulse Oximetry 99 Oxygen Delivery 06/13/24 09:27 06/13/24 09:27 06/13/24 12:00 Temperature Pulse Rate 53 L 57 L Respiratory Rate Blood Pressure Pulse Oximetry Oxygen Delivery Room Air 06/13/24 12:00 Temperature 97.6 F Pulse Rate 68 Respiratory Rate 18 Blood Pressure 150/62 H Pulse Oximetry 99 Oxygen Delivery Intake/Output Intake/Output: Intake & Output 06/10/24 06/11/24 06/12/24 06/13/24 23:59 23:59 23:59 23:59 Intake Total 700 4200 2748 Output Total 270 768 0919 Balance 350 3450 1348 Meds/Results Medications: Active Medications Generic Name Dose Route Start Last Admin Trade Name Freq PRN Reason Stop Dose Admin Acetaminophen 650 mg 06/11/24 11:20 06/13/24 09:25 Acetaminophen 325 Mg Tablet PO 650 mg Q4H PRN Administration Mild Pain (1-3) or Fever Atorvastatin Calcium 80 mg 06/11/24 21:00 06/12/24 20:20 Atorvastatin 40 Mg Tablet PO 80 mg HS NASRIN Administration Dextrose 12.5 gm 06/11/24 15:20 Dextrose 50% 25 Gm/50 Ml Syringe IV PUSH PRN PRN Hypoglycemia Protocol Glucagon 1 mg 06/11/24 15:20 Glucagon For Inj 1 Mg Vial IM PRN PRN Hypoglycemia Protocol Glucose 15 gm 06/11/24 15:20 Glucose Oral Gel 15 Gm Of Glucse In 37.5 Gm Tube PO PRN PRN Hypoglycemia Protocol Hydralazine HCl 50 mg 06/11/24 17:50 Hydralazine Hcl 50 Mg Tablet PO DAILY PRN Hypertension Sodium Chloride 1,000 mls @ 125 mls/hr 06/11/24 11:20 06/13/24 13:35 Normal Saline Iv IV CONT 125 mls/hr .Q8H NASRIN Administration Dextrose 1,000 mls @ 100 mls/hr 06/11/24 15:20 Dextrose 5% 1,000 Ml IVPB PRN PRN Hypoglycemia Protocol Vancomycin HCl 1,500 mg in 500 mls @ 250 mls/hr 06/12/24 23:00 06/12/24 22:00 Vancomycin 1,500 Mg/Ns 500 Ml IVPB 250 mls/hr Q18H NASRIN Administration Meropenem 500 mg in 100 mls @ 200 mls/hr 06/12/24 22:00 06/13/24 13:37 IVPB 200 mls/hr Q8HR NASRIN Administration Insulin Aspart 2 - 5 units 06/11/24 18:00 06/13/24 12:20 Insulin Aspart (*Bkc) 100 Units/Ml SUB-Q Not Given Q6HR NASRIN Protocol Metoprolol Tartrate 25 mg 06/11/24 21:00 06/13/24 09:26 Metoprolol Tartrate 25 Mg Tablet PO 25 mg Q12HR NASRIN Administration Mirabegron 25 mg 06/12/24 09:00 06/13/24 09:26 Mirabegron 25 Mg Er Tablet PO 25 mg DAILY NASRIN Administration Methenamine 1 each 06/11/24 17:00 06/13/24 09:29 Hippurate [Hiprex] 1 PO 07/11/24 16:59 1 each Gram BID NASRIN Administration Ondansetron HCl 4 mg 06/11/24 16:19 Ondansetron Inj 4 Mg/2 Ml Vial IV PUSH Q6H PRN Nausea And Vomiting Pantoprazole Sodium 40 mg 06/11/24 21:00 06/13/24 09:30 Pantoprazole Sodium Iv 40 Mg Vial IV PUSH 40 mg Q12HR NASRIN Administration Polyethylene Glycol 17 gm 06/11/24 17:50 Polyethylene Glycol 3350 17 Gm Powd.Pack PO DAILY PRN Constipation Potassium Chloride 40 meq 06/11/24 17:00 06/13/24 09:27 Potassium Chloride 20 Meq Packet (For Liquid) PO 40 meq BID NASRIN Administration Radiology Results: ITS Impressions Chest X-Ray 06/11/24 06:55 IMPRESSION: 1. Chronic lung disease at the lung bases. Head CT 06/11/24 07:12 IMPRESSION: 1. 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 Chest/Abdomen/Pelvis CT 06/11/24 08:00 IMPRESSION: 1. Asbestosis. 2. Fluid around the implanted subcutaneous pump in left abdomen with signs of recent surgery, likely hematoma. Infection cannot be excluded by imaging. 3. Dilated sigmoid colon, likely adynamic ileus. Carotid Doppler Study 06/13/24 08:50 IMPRESSION: 1. <50% stenosis in the right internal carotid artery. 2. <50% stenosis in the left internal carotid artery. Labs Labs: Laboratory Results - last 24 hr 06/12/24 06/12/24 06/13/24 18:28 18:35 05:24 WBC 7.2 RBC 3.47 L Hgb 10.2 L Hct 32.9 L MCV 94.8 MCH 29.4 MCHC 31.0 L RDW 14.6 H Plt Count 165 MPV 11.1 H Immature Gran % (Auto) 0.6 H Neut % (Auto) 78.6 H Lymph % (Auto) 8.9 L Elliott % (Auto) 8.0 Eos % (Auto) 3.5 Baso % (Auto) 0.4 Lymph # (Auto) 0.64 L Elliott # (Auto) 0.6 Eos # (Auto) 0.3 Baso # (Auto) 0.0 Abs Immat Gran (auto) 0.04 H Absolute Neuts (auto) 5.7 Absolute Nucleated RBC 0.000 Nucleated RBC % 0.0 Sodium 142 Potassium 3.3 L Chloride 115 H Carbon Dioxide 22 Anion Gap 5 BUN 13 D Creatinine 0.60 L Estim Creat Clear Calc 97 Estimated GFR > 60 Glucose 98 POC Capillary Glucose 121 H Calcium 7.8 L Triglycerides 78 Cholesterol 104 LDL Cholesterol Direct 49 HDL Direct 27 Vitamin B12 > 1000.0 H Vitamin D 25-Hydroxy 41.3 Folate > 20.0 H 06/13/24 11:58 WBC RBC Hgb Hct MCV MCH MCHC RDW Plt Count MPV Immature Gran % (Auto) Neut % (Auto) Lymph % (Auto) Elliott % (Auto) Eos % (Auto) Baso % (Auto) Lymph # (Auto) Elliott # (Auto) Eos # (Auto) Baso # (Auto) Abs Immat Gran (auto) Absolute Neuts (auto) Absolute Nucleated RBC Nucleated RBC % Sodium Potassium Chloride Carbon Dioxide Anion Gap BUN Creatinine Estim Creat Clear Calc Estimated GFR Glucose POC Capillary Glucose 106 H Calcium Triglycerides Cholesterol LDL Cholesterol Direct HDL Direct Vitamin B12 Vitamin D 25-Hydroxy Folate
[2024-06-13 17:23] LABS: Glucose Point of Care 112 mg/dl (65-105)
[2024-06-13 17:33] LABS: Vancomycin Trough 14.5 ug/mL (10.0-20.0)
[2024-06-16 14:57] LABS: Methylmalonic Acid. 101 nmol/L (69-390)
== END 2024-06-13 21:56 ==
LOC: ANHED 11:27 → ANH2MED 06-13 15:15 → ANH3MEDSUR 06-14 07:45
PROVIDERS: Emergency Medicine; General Practice; Psychiatry & Neurology Neurology; Admitting Provider Internal Medicine; Emergency Provider Emergency Medicine; PCP Internal Medicine; Visit Provider Hospitalist
DX: N30.00 Acute cystitis without hematuria (principal); B96.29 Other Escherichia coli [E. coli] as the cause of diseases classified elsewhere; A04.72 Enterocolitis due to Clostridium difficile, not specified as recurrent; K56.7 Ileus, unspecified; Z16.12 Extended spectrum beta lactamase (ESBL) resistance; R44.3 Hallucinations, unspecified; E87.6 Hypokalemia; R41.0 Disorientation, unspecified; G93.41 Metabolic encephalopathy; I10 Essential (primary) hypertension; K21.9 Gastro-esophageal reflux disease without esophagitis; F32.A Depression, unspecified; G89.4 Chronic pain syndrome; N31.9 Neuromuscular dysfunction of bladder, unspecified; Z20.822 Contact with and (suspected) exposure to COVID-19; Z96.0 Presence of urogenital implants; G82.54 Quadriplegia, C5-C7 incomplete; I69.312 Visuospatial deficit and spatial neglect following cerebral infarction; Z86.718 Personal history of other venous thrombosis and embolism; Z22.322 Carrier or suspected carrier of Methicillin resistant Staphylococcus aureus; Z79.899 Other long term (current) drug therapy; Z96.89 Presence of other specified functional implants
CPT/HCPCS: 36415; 70450; 71045; 71260; 74177; 80048; 80053; 80061; 80202; 80307; 81001; 82077; 82140; 82306; 82565; 82607; 82746; 82948; 83921; 85025; 85610; 85730; 87040; 87086; 87637; 93005; 93880; 99285; A9270; G0378; G0379; J2185; J2470; J3370; J3480; J7030; J7040; Q9967

== ENCOUNTER 2024-07-05 09:03 | Observation (INO) | payer MEDICARE, OTHER, MEDICAID, SELFPAY ==
[2024-07-05] VITALS (12 sets, daily range): BP systolic 155–208; BP diastolic 66–84; PULSE 52–72; RESP 9–18; TEMP 36.4–36.5; O2SAT 93–97
--- NOTE | ~2024-07-05 | CT_ITS ---
EXAMINATION: CTA brain carotid DATE: 07/05/2024 16:14 INDICATION: new onset paresthesias TECHNIQUE: Computed tomographic angiography (CTA) of the head and neck was performed with 100 mL Omni paque-350 intravenous contrast. Automated exposure control and iterative reconstruction technique wer e employed. The dose-length product was 1004.64 mGy-cm. Maximum intensity projection and volume rende red 3D-reconstructions were created by the technologist on a separate workstation. COMPARISON: CT brain, same date; ultrasound carotid duplex 06/12/2024. FINDINGS: CTA HEAD: No large vessel occlusion, aneurysm, high flow vascular malformation, nidus or extravasation. Atheros clerotic calcifications in the cavernous carotids, without significant stenosis. Left medial occipita l encephalomalacia, otherwise symmetric parenchymal enhancement. Patent cerebral veins. CTA NECK: Aortic arch and proximal great vessels: Normal arch anatomy. Mild arch calcification. Right common carotid, carotid bifurcation, and internal carotid artery: Mild calcified plaque.There i s 0% stenosis of the proximal right internal carotid artery relative to normal distal artery lumen di ameter (NASCET criteria). Left common carotid, carotid bifurcation, and internal carotid artery: Mild calcified plaque.There is 0% stenosis of the proximal left internal carotid artery relative to normal distal artery lumen diam eter (NASCET criteria). Vertebral arteries: No significant plaque or stenosis. Other findings: Severe central canal stenosis at C3-4 secondary to degenerative disc, uncovertebral j oint, and facet changes. IMPRESSION: No large vessel intracranial occlusion, high-grade intracranial stenosis, or aneurysm. No carotid or vertebral artery occlusion, dissection, or significant stenosis. Severe central canal stenosis at C3-4 secondary to degenerative changes. Reviewed, dictated and finalized at location K. C COMPOSER IMPRESSION: No large vessel intracranial occlusion, high-grade intracranial stenosis, or an eurysm. No carotid or vertebral artery occlusion, dissection, or significant stenosis. Severe central canal stenosis at C3-4 secondary to degenerative changes.
--- NOTE | ~2024-07-05 | CT_ITS ---
EXAMINATION: CT brain wo con DATE: 07/05/2024 12:25 INDICATION: Altered mental status TECHNIQUE: Computed tomography (CT) of the head was performed without intravenous contrast. Sagittal and coronal reconstructions were performed. The mA was adjusted according to patient size. Iterative reconstruction technique was employed. The dose-length product was 681.00 mGy-cm. COMPARISON: head CT dated 06/11/2024 FINDINGS: Old left occipital lobe infarct. No acute intracranial hemorrhage, acute infarction or abnormal extra axial fluid collection. There is mild scattered white matter hypoattenuation consistent with chronic small vessel ischemic disease. Ventricles are normal. No mass/mass effect. Mild mucosal thickening t he ethmoid sinuses. The orbits and mastoid air cells are normal. Intracranial calcified cerebral athe rosclerosis is noted. IMPRESSION: 1. Old left occipital lobe infarct. No acute intracranial process. Reviewed, dictated and finalized at location A. OL JUDGE
--- NOTE | ~2024-07-05 | CT_ITS ---
EXAMINATION: CTA chest PE protocol DATE: 07/05/2024 13:55 INDICATION: Altered mental status. Elevated d-dimer. TECHNIQUE: Computed tomography (CT) pulmonary angiogram of the chest was performed with 100 mL Omnipa que-350 intravenous contrast. Additional 3D reconstructions utilizing coronal maximum intensity proje ction (MIP) were performed. Automated exposure control and iterative reconstruction technique were em ployed. The dose-length product was 505.51 mGy-cm. COMPARISON: 06/11/2024 FINDINGS: No pulmonary embolism. There are bilateral calcified pleural plaques consistent with prior asbestos e xposure. There is persistent volume loss and consolidation with architectural distortion in the right lower lobe consistent with likely secondary round atelectasis. Subpleural bands in the posterior lef t lower lobe and mild bibasilar atelectasis/scarring along the left and right sides of the diaphragm. Additional unchanged small focus of round atelectasis at the anterolateral lingula. Small right pleu ral effusion primarily loculated along the right major fissure. Mild cardiomegaly. Atherosclerotic co ronary artery calcific location. No pericardial effusion. Thoracic aorta is normal in caliber with no dissection. No pathologically enlarged thoracic lymphadenopathy. Thoracic kyphosis with moderate spo ndylosis and chronic anterior wedging of several mid thoracic vertebral bodies. 1.6 cm cyst in the ri ght hepatic lobe. Partially visualized cephalad tip of an infrarenal IVC filter in expected position. IMPRESSION: 1. No pulmonary embolism. 2. Asbestosis with bilateral calcified pleural plaques, subpleural bands of round atelectasis in bila teral lower lobes and lingula. 3. Small pleural effusion loculated along the right major fissure. 4. Cardiomegaly. Reviewed, dictated and finalized at location A. E OVERNIGHT MONITOR IMPRESSION: 1. No pulmonary embolism. 2. Asbestosis with bilateral calcified pleural plaques, subpleural bands of rou nd atelectasis in bilateral lower lobes and lingula. 3. Small pleural effusion loculated along the right major fissure. 4. Cardiomegaly.
--- NOTE | ~2024-07-05 | XR_ITS ---
EXAMINATION: XR chest 1V portable DATE: 07/05/2024 12:33 INDICATION: Altered mental status TECHNIQUE: frontal view of the chest was obtained. COMPARISON: Chest radiograph dated 06/11/2024 FINDINGS: Small lung volumes. Airspace opacities in the bilateral lower lung zones. Possible very small bilater al pleural effusions. No pneumothorax. Cardiomegaly. Partially visualized IVC filter projecting over the right upper quadrant. IMPRESSION: 1. Mildly decreased lung volumes with opacities at the bilateral lower lung zones which could represe nt atelectasis, pneumonia, small pleural effusions or some combination thereof. 2. Cardiomegaly. Reviewed, dictated and finalized at location A. RIAL CHASER IMPRESSION: 1. Mildly decreased lung volumes with opacities at the bilateral lower lung zon es which could represent atelectasis, pneumonia, small pleural effusions or siria e combination thereof. 2. Cardiomegaly.
--- NOTE | ~2024-07-05 | CT_ITS ---
EXAMINATION: CT cervical spine wo con DATE: 07/05/2024 12:25 INDICATION: Altered mental status TECHNIQUE: Computed tomography (CT) of the cervical spine was performed without intravenous contrast. Automated exposure control and iterative reconstruction technique were employed. The dose-length pro duct was 370.96 mGy-cm. COMPARISON: None FINDINGS: 20 degrees cervical levoscoliosis. Sagittal alignment is normal. Vertebral body heights are normal. N o acute fracture. Moderate disc height loss with degenerative endplate changes at C4-C5 and C5-C6. Mi ld disc height loss at C2-C3, C3-C4 and C6-C7. Disc bulges or posterior disc ossified complexes resul ting in mild central canal stenosis at C2-C3 through C5-C6 and minimally at C6-C7. There is multileve l moderate to severe uncovertebral osteoarthritis with right-sided predominance and right-sided facet osteoarthritis. Mild to moderate multilevel left-sided facet osteoarthritis. This contributes to mul tilevel mild and moderate cervical neural foraminal stenosis. Atherosclerotic calcifications at the b ilateral carotid bulbs. Cervical soft tissues are otherwise unremarkable. Mild biapical pleural-paren chymal scarring. IMPRESSION: 1. 20 degrees cervical levoscoliosis with moderate spondylosis. Reviewed, dictated and finalized at location A. APY DIRECTOR
[2024-07-05 09:17] LABS: Glucose Point of Care 99 mg/dl (65-105)
[2024-07-05 09:40] LABS: Basophils Percent Auto 0.6 % (0.2-1.2); Eosinophils Absolute Auto 0.2 K/mm3 (0-0.3); Eosinophils Percent Auto 3.6 % (0-4.4); Hematocrit 32.9 % (42.0-52.0); Hemoglobin 10.1 g/dL (14.0-18.0); Immature Granulocyte Absolute 0.02 K/mm3 (0.00-0.031); Immature Granulocyte Percent A 0.4 % (0-0.5); Lymphocytes Absolute Auto 0.64 K/mm3 (0.9-3.2); Lymphocytes Percent Auto 12.9 % (18.3-44.2); Mean Corpuscular HGB Conc 30.7 g/dl (32-36); Mean Corpuscular Hemoglobin 28.9 pg (26-34); Monocytes Absolute Auto 0.4 K/mm3 (0.1-0.6); Monocytes Percent Auto 8.5 % (2.6-8.5); Neutrophils Absolute Auto 3.7 K/mm3 (1.3-6.7); Platelet Count Result 177 k/mm3 (150-375); Red Cell Distribution Width 16.2 % (11.5-14.5)
[2024-07-05 09:49] LABS: Alanine Aminotransferase 15 U/L (6-50); Albumin Level 3.1 g/dL (3.5-5.1); Alkaline Phosphatase 119 U/L (38-126); Anion Gap 0 mmol/L (4-12); Aspartate Amino Transferase 23 U/L (17-59); Bilirubin,Total 0.5 mg/dL (0.2-1.3); Blood Urea Nitrogen 25 mg/dL (9-20); Calcium 8.1 mg/dL (8.4-10.2); Carbon Dioxide 33 mmol/L (22-30); Chloride 110 mmol/L (98-107); Estimated CRCL calculation 83 ml/min; Estimated Glomerular Filt Rate > 60; Glucose 98 mg/dL (65-110); Potassium 3.4 mmol/L (3.4-5.0); Sodium 143 mmol/L (137-145)
[2024-07-05 09:53] LABS: Prothrombin Time 14.1 Seconds (11.1-14.7)
[2024-07-05 09:54] LABS: Partial Thromboplastin Time 33.8 Seconds (22.3-36.8)
[2024-07-05 09:59] LABS: Add Urine Microscopic? YES; Appearance Urine Turbid (Clear); Bacteria Urine None Seen /hpf; Bilirubin Urine Negative (Negative); Blood Urine Negative (Negative); Calcium Oxalate Crystals Urine Present /hpf; Color Urine Yellow (Yellow); Glucose Urine UA Negative (Negative); Ketones Urine Negative (Negative); Leukocyte Esterase Ur Negative LEU/UL (Negative); Need Manual Microscopic Reviewed; Nitrate Urine Negative (Negative); Non Pathogenic Casts 0-2; Protein Urine 1+ mg/dL (Negative); RBC Urine 0-2 /hpf (0-2); Specific Grav Ur 1.026 (1.001-1.035); Squamous Epithelial Cell Urine None Seen /hpf (Few); Urobilinogen Urine 0.2 mg/dL (<2.0); WBC Urine 0-5 /hpf (0-3); pH Urine 5.5 (5.0-9.0)
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
[2024-07-05 11:41] LABS: Alveolar/Arterial O2 Gradient 18.1 mmHg; Base Excess ABG 3.7 mEq/l (+/-2.0); Device ROOM AIR; Fractional Inspired Oxygen 21 %; HCO3 ABG 29.6 mEq/l (22.0-26.0); Modified Allen's Test Pass; Oxygen Content ABG 13.9 %vol (16.0-22.0); Oxygen Saturation ABG 93.7 % (95.0-100.0); Oxyhemoglobin 92.8 % THb (90.0-100.0); PCO2 ABG 50.9 mmHg (35.0-45.0); PO2 ABG 70.7 mmHg (80.0-100.0); PO2 FiO2 Ratio Arterial Blood 3.37 %; Site Drawn LEFT RADIAL; Total Hemoglobin 10.6 g/dL (12.0-18.0); pH ABG 7.382 (7.350-7.450)
[2024-07-05 12:08] LABS: Acetaminophen < 10 ug/mL (10-30); Ammonia < 9 umol/L (9-30); Creatine Kinase 36 U/L (55-170); Ethanol < 10 mg/dL (<10); Salicylate < 1.0 mg/dL (2-20)
[2024-07-05 12:18] LABS: Barbiturate Screen Urine Negative (Negative); Benzodiazepines Screen Urine Negative (Negative)
[2024-07-05 12:21] LABS: D Dimer 1.31 ug/mL (<0.48); NT Pro B Type Natriuretic Pept 546 pg/mL (19.9-100); Troponin I 0.013 ng/mL (0.000-0.034)
[2024-07-05 12:23] LABS: Amphetamine Screen Urine Negative (Negative); Cannabinoid Screen Urine Negative (Negative); Cocaine Screen Urine Negative (Negative); Methadone Screen Urine Negative (Negative); Opiate Screen Urine Negative (Negative); Phencyclidine Screen Urine Negative (Negative)
[2024-07-05 12:34] LABS: Influenza A QL RT-PCR Negative (Negative); Influenza B QL RT-PCR Negative (Negative); RSV RNA, RT-PCR Negative (Negative); SARS-CoV-2 RNA PCR Negative (Negative)
[2024-07-05] MEDS: dexAMETHasone 2 MG TABLET 10 MG PO (15:37)
[2024-07-05 15:40] LABS: Strep Group A RT-PCR NOT DETECTED (Negative)
[2024-07-05] MEDS: ONDANSETRON INJ 4 MG/2 ML VIAL IV PUSH (16:28)
--- NOTE | 2024-07-05 19:10 | ADMGEN ---
This patient, Tai Amado, was admitted to Medical Room 256-01. Patient/family oriented to hospital policies and general routines including ID bracelet, bed and alarms, visiting hours, pain management, procedures, bathroom and other care routines, personal items, smoking policy, room service/diet, and visiting hours. Information on how to activate the Rapid Response Team has been discussed. Patient/Family are encouraged to report perceived risks to care and to ask questions if they do not understand what they are told or what they should do.
[2024-07-06 00:35] VITALS: PULSE 72
[2024-07-06] MEDS: METOPROLOL TARTRATE 25 MG TABLET PO ×3 (00:35→21:56)
[2024-07-06] MEDS: CYCLOBENZAPRINE HCL 10 MG TABLET PO ×2 (00:35→21:55)
[2024-07-06] MEDS: PANTOPRAZOLE 40 MG TABLET PO ×3 (00:35→21:56)
[2024-07-06] MEDS: ATORVASTATIN 40 MG TABLET 80 MG PO ×2 (00:35→21:57)
[2024-07-06 05:19] VITALS: BP 157/84; PULSE 92; RESP 20; TEMP 36.6; O2SAT 93
[2024-07-06 05:50] LABS: Hematocrit 35.9 % (42.0-52.0); Hemoglobin 11.1 g/dL (14.0-18.0); Immature Granulocyte Absolute 0.03 K/mm3 (0.00-0.031); Immature Granulocyte Percent A 0.7 % (0-0.5); Lymphocytes Absolute Auto 0.47 K/mm3 (0.9-3.2); Lymphocytes Percent Auto 10.3 % (18.3-44.2); Mean Corpuscular HGB Conc 30.9 g/dl (32-36); Mean Corpuscular Volume 93.7 fl (80-100); Mean Platelet Volume 10.6 fl (7.4-10.4); Monocytes Absolute Auto 0.1 K/mm3 (0.1-0.6); Platelet Count Result 214 k/mm3 (150-375); Red Blood Count 3.83 M/mm3 (4.6-6.20); Red Cell Distribution Width 15.9 % (11.5-14.5); White Blood Count 4.6 K/mm3 (4.5-10.0)
[2024-07-06 05:54] LABS: Ammonia < 9 umol/L (9-30)
[2024-07-06 06:04] LABS: Alanine Aminotransferase 17 U/L (6-50); Albumin Level 3.3 g/dL (3.5-5.1); Alkaline Phosphatase 124 U/L (38-126); Anion Gap 2 mmol/L (4-12); Aspartate Amino Transferase 27 U/L (17-59); Bilirubin,Total 0.6 mg/dL (0.2-1.3); Blood Urea Nitrogen 22 mg/dL (9-20); Calcium 8.3 mg/dL (8.4-10.2); Carbon Dioxide 32 mmol/L (22-30); Chloride 106 mmol/L (98-107); Estimated CRCL calculation 81 ml/min; Estimated Glomerular Filt Rate > 60; Glucose 114 mg/dL (65-110); Potassium 3.8 mmol/L (3.4-5.0); Sodium 140 mmol/L (137-145)
--- NOTE | 2024-07-06 08:12 | PM.IMPN ---
Progress Note: A&P Assessment and Plan (1) AMS (altered mental status): Qualifiers: Altered mental status type: unspecified Qualified Code(s): R41.82 - Altered mental status, unspecified Code(s): R41.82 - Altered mental status, unspecified Status: Acute Assessment and Plan: pt is alert and appropriate at this time ua collected-awaiting results differentials: baclofen overdose vs uti (which is chronic ) vs other wbc normal 4.6 afebrile d dimer was elavated-so CT ordered to r/u PE toxicology panel ordered and unremarkable so far when examined- he was alert and appropriate (2) Quadriplegia, C5-C7, incomplete: Code(s): G82.54 - Quadriplegia, C5-C7 incomplete Status: Acute (3) Central stenosis of spinal canal: Code(s): M48.00 - Spinal stenosis, site unspecified Status: Acute (4) Chronic pain syndrome: Code(s): G89.4 - Chronic pain syndrome Status: Acute Assessment and Plan: baclofen pump in place resume home lyrica Plan # anemia- chronic- resume home iron supplement # htn - metoprol, hydralazine prn # gerd- resume home protonix DVT prophylaxis- lovenox Time Spent With Patient Time with patient: Greater than 35 minutes Subjective Date/time seen: 07/06/24 08:12 Interval history: 74-year-old male with history of spinal cord injury resulting in incomplete quadriplegia, neurogenic bladder with indwelling suprapubic catheter, hypertension, anemia, and deep venous thrombosis who presented to the emergency department via EMS from [facility] due to AMS. On review of his chart, he has been treated with multiple different antibiotics for urinary tract infections this year, at least 10 times this year upon review of his external medication history. Last urine culture taken 03/09/2024 grew out ESBL Escherichia coli for which he was treated with nitrofurantoin. Reviewing current ED document it reveals patient underwent baclofen pump at [facility]. Of note, he ws recently discharged from [place] on 06/13/24 for UTI/bacteremia, Adynamic Ileus/Hematoma vs Infection around implanted subcutaneous pump. The emergency department he is afebrile, HTN. Supplemental oxygen ordered PRN. Not on anticoagulation per review of the medication list from [facility]. Calcium corrects to normal in the setting of hypoalbuminemia. Normocytic anemia, stable from previous. BNP is slightly elevated but not to a degree to suggest acute heart failure given the reference range per patient's age. Patient has elevated D-dimer >[address] with CT imaging. Later in the day yesterday in ED, he was more alert and oriented, conversant. He states his throat gottlieb and he is thirsty. Other than that he also states he is lightheaded and he is aware that this morning he was confused and that this is not normal. 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 Posterior oropharynx with mild erythema. Denies cough. Will obtain Strep testing and given 1 time dose of dexamethasone as this has been shown to improve pharyngitis symptoms. Patient reassessed at approximately 4:00 p.m. He states the throat pain is better but he still feels ill. He has been sipping on water but now he is complaining of nausea and numbness. He states he has paresthesias are new. Every time patient is assessed his mentation seems to change. This is concerning for possible delirium. Possible baclofen overdose or that the device needs to be re-calibrated although I would anticipate that this would show a more sustained alteration/depression in mentation. When ED provider re-evaluated him at approximately 5:25 a.m., he was incredibly somnolent, sleeping protecting his airway but requiring sternal rub to awaken him. He states he still feels unwell and does not know why and does not feel comfortable returning to the facility 1/2 pt is seen and examined. He is awake and appropriate. states still foggy . states that last time he stayed here for 7 days and that is what he wants to do this time. no other acute complains. Review of Systems Review of Systems: All systems reviewed & are unremarkable except as noted in HPI and below Constitutional: Constitutional: Denies chills Respiratory: Respiratory: Denies chest congestion and Denies cough Gastrointestinal: Gastrointestinal: Denies abdominal pain Musculoskeletal: Musculoskeletal: Reports back pain Comments: chronic. pain pump to left lower abd. rt lower abd batteries. no erythema noted. Objective Data Vital Signs Vital Signs: Vital Signs - 24 hr 07/05/24 09:07 07/05/24 09:17 07/05/24 09:18 Temperature 97.7 F Pulse Rate 60 56 L Respiratory Rate 18 Blood Pressure 170/78 H Pulse Oximetry 94 93 Oxygen Delivery Room Air Room Air 07/05/24 11:45 07/05/24 11:47 07/05/24 12:01 Temperature Pulse Rate 54 L 52 L 54 L Respiratory Rate 18 9 L 15 Blood Pressure 183/73 H 183/73 H 202/71 H Pulse Oximetry 96 95 Oxygen Delivery 07/05/24 15:37 07/05/24 16:16 07/05/24 16:30 Temperature Pulse Rate 59 L 60 60 Respiratory Rate 18 13 12 Blood Pressure 208/82 H 197/72 H 197/72 H Pulse Oximetry 97 96 95 Oxygen Delivery 07/05/24 17:46 07/05/24 18:31 07/05/24 20:34 Temperature 97.5 F L Pulse Rate 62 65 72 Respiratory Rate 10 L 12 16 Blood Pressure 155/66 H 184/84 H 177/69 H Pulse Oximetry 94 96 94 Oxygen Delivery 07/06/24 00:35 07/06/24 05:19 Temperature 97.9 F Pulse Rate 72 92 Respiratory Rate 20 Blood Pressure 157/84 H Pulse Oximetry 93 Oxygen Delivery Intake/Output Intake/Output: Intake & Output 07/03/24 07/04/24 07/05/24 07/06/24 23:59 23:59 23:59 23:59 Intake Total 250 Output Total 500 Balance -250 Meds/Results Medications: Active Medications Generic Name Dose Route Start Last Admin Trade Name Freq PRN Reason Stop Dose Admin Acetaminophen 650 mg 07/05/24 17:32 Acetaminophen 325 Mg Tablet PO Q4H PRN Mild Pain (1-3) or Fever Ascorbic Acid 500 mg 07/06/24 09:00 Ascorbic Acid 500 Mg Tablet PO DAILY [facility] Atorvastatin Calcium 80 mg 07/05/24 22:45 07/06/24 00:35 Atorvastatin 40 Mg Tablet PO 80 mg HS [facility] Administration Bisacodyl 10 mg 07/05/24 23:17 Bisacodyl 10 Mg Suppository RECTAL DAILY PRN constipation Cyclobenzaprine HCl 10 mg 07/05/24 22:45 07/06/24 00:35 Cyclobenzaprine Hcl 10 Mg Tablet PO 10 mg HS [facility] Administration Enoxaparin Sodium 40 mg 07/06/24 09:00 Enoxaparin 40 Mg/0.4 Ml Syringe SUB-Q DAILY [facility] Ferrous Sulfate 325 mg 07/05/24 23:03 Ferrous Sulfate [address] BY MOUTH Q48H [facility] Folic Acid 1 mg 07/06/24 12:00 Folic Acid 1 Mg Tablet PO DAILY@1200 [facility] Guaifenesin 600 mg 07/05/24 22:44 Guaifenesin 12 Hr 600 Mg Tabcr PO Q12H PRN Allergic Symptoms Hydralazine HCl 50 mg 07/05/24 22:44 Hydralazine Hcl 50 Mg Tablet PO Q8H PRN Hypertension BP>160/80 Hydroxyzine HCl 25 mg 07/05/24 22:44 Hydroxyzine Hcl 25 Mg Tablet PO TID PRN Anxiety Ibuprofen 800 mg 07/05/24 22:44 Ibuprofen 400 Mg Tablet PO Q6-8H PRN Pain 4-6 Lactobacillus Acidophilus 1 tablet 07/06/24 09:00 Acidophilus/Bulgaricus Chewable Tablet BY MOUTH BID [facility] Loratadine 10 mg 07/06/24 09:00 Loratadine 10 Mg Tablet PO DAILY [facility] Magnesium Citrate 150 ml 07/05/24 23:16 Magnesium Citrate 300 Ml Btl PO DAILY PRN constipation Melatonin 3 mg 07/05/24 22:50 07/06/24 00:35 Melatonin 3 Mg Tablet PO Not Given [facility] Metoprolol Tartrate 25 mg 07/05/24 22:50 07/06/24 00:35 Metoprolol Tartrate 25 Mg Tablet PO 25 mg Q12HR [facility] Administration Miconazole Nitrate 1 applic 07/05/24 22:48 Miconazole Nitrate 2% Cream 30 Gm Tube TOPICAL PRN PRN skin irritation Mirabegron 25 mg 07/06/24 09:00 Mirabegron 25 Mg Er Tablet PO DAILY [facility] Miscellaneous Information 0 each 07/05/24 00:01 Ferrous Sulfate Every Other Day When Is Next Dose Due? XX 08/04/24 00:00 CLARIFY [facility] Multivitamins/Minerals 1 tab 07/06/24 09:00 Multivitamins /C Lutein (Centrum Silver) Tablet *Bkc PO DAILY [facility] Non-Formulary Medication 1 gm 07/06/24 09:00 Methenamine Hippurate [Hiprex] PO 08/05/24 08:59 BID [facility] Ondansetron HCl 4 mg 07/05/24 17:32 Ondansetron Inj 4 Mg/2 Ml Vial IV PUSH Q4H PRN Nausea Pantoprazole Sodium 40 mg 07/05/24 22:50 07/06/24 00:35 Pantoprazole 40 Mg Tablet PO 40 mg Q12HR [facility] Administration Perflutren Lipid Microsphere 0 ml 07/05/24 23:46 Perflutren Lipid Microspheres 1.5 Ml Vial Diluted To 10 Ml Total Volume IV PUSH 07/08/24 23:46 ONCE PRN adequate visualization Protocol Polyethylene Glycol 17 gm 07/06/24 09:00 Polyethylene Glycol 3350 17 Gm Powd.Pack PO DAILY [facility] Pregabalin 50 mg 07/06/24 09:00 Pregabalin (*Crx) 50 Mg Capsule PO BID [facility] Pregabalin 100 mg 07/06/24 09:00 Pregabalin (*Crx) 50 Mg Capsule PO BID [facility] Senna 8.6 mg 07/05/24 23:07 Sennosides 8.6 Mg Tablet PO BID PRN constipation Simethicone 80 mg 07/05/24 22:44 Simethicone 80 Mg Tab.Chew PO BID PRN Indigestion Radiology Results: ITS Impressions Head CT 07/05/24 12:26 IMPRESSION: 1. Old left occipital lobe infarct. No acute intracranial process. Cervical Spine CT 07/05/24 12:35 IMPRESSION: 1. 20 degrees cervical levoscoliosis with moderate spondylosis. Chest X-Ray 07/05/24 12:41 IMPRESSION: 1. Mildly decreased lung volumes with opacities at the bilateral lower lung zones which could represent atelectasis, pneumonia, small pleural effusions or some combination thereof. 2. Cardiomegaly. Chest CTA 07/05/24 14:05 IMPRESSION: 1. No pulmonary embolism. 2. Asbestosis with bilateral calcified pleural plaques, subpleural bands of round atelectasis in bilateral lower lobes and lingula. 3. Small pleural effusion loculated along the right major fissure. 4. Cardiomegaly. Head/Neck CTA 07/05/24 16:25 IMPRESSION: No large vessel intracranial occlusion, high-grade intracranial stenosis, or aneurysm. No carotid or vertebral artery occlusion, dissection, or significant stenosis. Severe central canal stenosis at C3-4 secondary to degenerative changes. Labs Labs: Laboratory Results - last 24 hr 07/05/24 07/05/24 07/05/24 09:14 09:33 11:35 WBC 5.0 RBC 3.50 L Hgb 10.1 L Hct 32.9 L MCV 94.0 MCH 28.9 MCHC 30.7 L RDW 16.2 H Plt Count 177 MPV 10.0 Immature Gran % (Auto) 0.4 Neut % (Auto) 74.0 H Lymph % (Auto) 12.9 L [place] % (Auto) 8.5 Eos % (Auto) 3.6 Baso % (Auto) 0.6 Lymph # (Auto) 0.64 L [place] # (Auto) 0.4 Eos # (Auto) 0.2 Baso # (Auto) 0.0 Abs Immat Gran (auto) 0.02 Absolute Neuts (auto) 3.7 Absolute Nucleated RBC 0.000 Nucleated RBC % 0.0 PT 14.1 INR 1.0 APTT 33.8 D-Dimer Puncture Site Left radial ABG pH 7.382 ABG pCO2 50.9 H ABG pO2 70.7 L ABG PO2/FiO2 Ratio 3.37 ABG HCO3 29.6 H ABG O2 Saturation 93.7 L ABG O2 Content 13.9 L ABG Base Excess 3.7 A-a Gradient 18.1 Oxyhemoglobin 92.8 Total Hemoglobin 10.6 L O2 Delivery Device Room air O2 Liters/Min Not Reportable FiO2 21 Sodium 143 Potassium 3.4 Chloride 110 H Carbon Dioxide 33 H Anion Gap 0 L BUN 25 H D Creatinine 0.80 Estim Creat Clear Calc 83 Estimated GFR > 60 Glucose 98 POC Capillary Glucose 99 Calcium 8.1 L Total Bilirubin 0.5 AST 23 ALT 15 Alkaline Phosphatase 119 Ammonia Total Creatine Kinase Troponin I NT-Pro-B Natriuret Pep Total Protein 6.0 L Albumin 3.1 L TSH Urine Color Yellow Urine Appearance Turbid H Urine pH 5.5 Ur Specific [place] 1.026 Urine Protein 1+ H Urine Glucose (UA) Negative Urine Ketones Negative Ur Blood (Man) Negative Urine Nitrate Negative Urine Bilirubin Negative Urine Urobilinogen 0.2 Add Ur Microanalysis Reviewed Leukocyte Esterase Rfl Negative Urine RBC 0-2 Urine WBC 0-5 Ur Squamous Epith Cells None seen Calcium Oxalate Crystal Present Urine Bacteria None seen Urine Casts 0-2 Salicylates Urine Opiates Screen Negative Urine Methadone Screen Negative Acetaminophen Ur Barbiturates Screen Negative Ur Phencyclidine Scrn Negative Ur Amphetamine Screen Negative U Benzodiazepines Scrn Negative Urine Cocaine Screen Negative U Cannabinoids Screen Negative Ethyl Alcohol Influenza A (RT-PCR) Influenza B (RT-PCR) RSV (RT-PCR) SARS-CoV-2 RNA (RT-PCR) Group A Strep (PCR) 07/05/24 07/05/24 07/06/24 11:49 14:52 05:32 WBC 4.6 RBC 3.83 L Hgb 11.1 L Hct 35.9 L MCV 93.7 MCH 29.0 MCHC 30.9 L RDW 15.9 H Plt Count 214 MPV 10.6 H Immature Gran % (Auto) 0.7 H Neut % (Auto) 87.0 H Lymph % (Auto) 10.3 L [place] % (Auto) 2.0 L Eos % (Auto) 0.0 Baso % (Auto) 0.0 L Lymph # (Auto) 0.47 L [place] # (Auto) 0.1 Eos # (Auto) 0.0 Baso # (Auto) 0.0 Abs Immat Gran (auto) 0.03 Absolute Neuts (auto) 4.0 Absolute Nucleated RBC 0.000 Nucleated RBC % 0.0 PT INR APTT D-Dimer 1.31 H Puncture Site ABG pH ABG pCO2 ABG pO2 ABG PO2/FiO2 Ratio ABG HCO3 ABG O2 Saturation ABG O2 Content ABG Base Excess A-a Gradient Oxyhemoglobin Total Hemoglobin O2 Delivery Device O2 Liters/Min FiO2 Sodium 140 Potassium 3.8 Chloride 106 Carbon Dioxide 32 H Anion Gap 2 L BUN 22 H Creatinine 0.70 Estim Creat Clear Calc 81 Estimated GFR > 60 Glucose 114 H POC Capillary Glucose Calcium 8.3 L Total Bilirubin 0.6 AST 27 ALT 17 Alkaline Phosphatase 124 Ammonia < 9 L < 9 L Total Creatine Kinase 36 L Troponin I 0.013 NT-Pro-B Natriuret Pep 546 H Total Protein 7.0 Albumin 3.3 L TSH 2.460 Urine Color Urine Appearance Urine pH Ur Specific [place] Urine Protein Urine Glucose (UA) Urine Ketones Ur Blood (Man) Urine Nitrate Urine Bilirubin Urine Urobilinogen Add Ur Microanalysis Leukocyte Esterase Rfl Urine RBC Urine WBC Ur Squamous Epith Cells Calcium Oxalate Crystal Urine Bacteria Urine Casts Salicylates < 1.0 L Urine Opiates Screen Urine Methadone Screen Acetaminophen < 10 L Ur Barbiturates Screen Ur Phencyclidine Scrn Ur Amphetamine Screen U Benzodiazepines Scrn Urine Cocaine Screen U Cannabinoids Screen Ethyl Alcohol < 10 Influenza A (RT-PCR) Negative Influenza B (RT-PCR) Negative RSV (RT-PCR) Negative SARS-CoV-2 RNA (RT-PCR) Negative Group A Strep (PCR) Not detected
[2024-07-06] MEDS: MULTIVITAMINS /C LUTEIN (CENTRUM SILVER) TABLET *BKC 1 TAB PO (09:50)
[2024-07-06] MEDS: PREGABALIN (*CRX) 50 MG CAPSULE 100 MG PO ×2 (09:50→17:23)
[2024-07-06 09:51] VITALS: PULSE 93
[2024-07-06] MEDS: ACIDOPHILUS/BULGARICUS CHEWABLE TABLET 1 TABLET BY MOUTH ×2 (09:51→17:22)
[2024-07-06] MEDS: LORATADINE 10 MG TABLET PO (09:51)
[2024-07-06] MEDS: PREGABALIN (*CRX) 50 MG CAPSULE PO ×2 (09:51→17:23)
[2024-07-06] MEDS: ASCORBIC ACID 500 MG TABLET PO (09:51)
[2024-07-06] MEDS: MIRABEGRON 25 MG ER TABLET PO (09:51)
[2024-07-06] MEDS: polyethylene glycoL 3350 17 GM POWD.PACK PO (09:52)
[2024-07-06] MEDS: ENOXAPARIN 40 MG/0.4 ML SYRINGE SUB-Q (09:52)
[2024-07-06] MEDS: FOLIC ACID 1 MG TABLET PO (12:08)
[2024-07-06 14:00] VITALS: BP 173/72; PULSE 74; RESP 16; TEMP 36.7; O2SAT 95
[2024-07-06 19:17] VITALS: BP 161/70; PULSE 80; RESP 16; TEMP 37.1; O2SAT 93
[2024-07-06 21:56] VITALS: PULSE 80
[2024-07-07 04:55] VITALS: BP 155/73; PULSE 66; RESP 20; TEMP 36.6; O2SAT 97
[2024-07-07 06:47] LABS: Basophils Percent Auto 0.4 % (0.2-1.2); Eosinophils Percent Auto 0.4 % (0-4.4); Immature Granulocyte Absolute 0.03 K/mm3 (0.00-0.031); Immature Granulocyte Percent A 0.4 % (0-0.5); Lymphocytes Absolute Auto 1.11 K/mm3 (0.9-3.2); Lymphocytes Percent Auto 14.8 % (18.3-44.2); Mean Corpuscular HGB Conc 31.3 g/dl (32-36); Mean Corpuscular Hemoglobin 28.7 pg (26-34); Mean Platelet Volume 10.6 fl (7.4-10.4); Monocytes Percent Auto 12.7 % (2.6-8.5); Neutrophils Absolute Auto 5.4 K/mm3 (1.3-6.7); Neutrophils Percent Auto 71.3 % (45.5-73.1); Platelet Count Result 186 k/mm3 (150-375); Red Blood Count 3.48 M/mm3 (4.6-6.20); Red Cell Distribution Width 16.5 % (11.5-14.5); White Blood Count 7.5 K/mm3 (4.5-10.0)
[2024-07-07 07:00] LABS: Alanine Aminotransferase 15 U/L (6-50); Alkaline Phosphatase 104 U/L (38-126); Anion Gap 2 mmol/L (4-12); Aspartate Amino Transferase 26 U/L (17-59); Bilirubin,Total 0.6 mg/dL (0.2-1.3); Blood Urea Nitrogen 32 mg/dL (9-20); Calcium 8.2 mg/dL (8.4-10.2); Carbon Dioxide 32 mmol/L (22-30); Chloride 105 mmol/L (98-107); Estimated CRCL calculation 53 ml/min; Estimated Glomerular Filt Rate > 60; Glucose 93 mg/dL (65-110); Potassium 3.2 mmol/L (3.4-5.0); Sodium 139 mmol/L (137-145)
--- NOTE | 2024-07-07 08:25 | P.PNIM_ITS ---
Progress Note: A&P Assessment and Plan (1) AMS (altered mental status): Qualifiers: Altered mental status type: unspecified Qualified Code(s): R41.82 - Altered mental status, unspecified Code(s): R41.82 - Altered mental status, unspecified Status: Acute Assessment and Plan: pt is alert and appropriate at this time ua collected-awaiting results- so far negative differentials: baclofen overdose vs uti (which is chronic ) vs other wbc normal 4.6 afebrile d dimer was elevated-so CT ordered to r/u PE 1. No pulmonary embolism. 2. Asbestosis with bilateral calcified pleural plaques, subpleural bands of round atelectasis in bilateral lower lobes and lingula. 3. Small pleural effusion loculated along the right major fissure. 4. Cardiomegaly. toxicology panel ordered and unremarkable so far when examined- he was alert and appropriate -unclear etiology for ams fluctuation- will ask for neurology consult (2) Quadriplegia, C5-C7, incomplete: Code(s): G82.54 - Quadriplegia, C5-C7 incomplete Status: Acute (3) Central stenosis of spinal canal: Code(s): M48.00 - Spinal stenosis, site unspecified Status: Acute (4) Chronic pain syndrome: Code(s): G89.4 - Chronic pain syndrome Status: Acute Assessment and Plan: baclofen pump in place resume home lyrica Plan # anemia- chronic- resume home iron supplement # htn - metoprol, hydralazine prn # gerd- resume home protonix DVT prophylaxis- lovenox Time Spent With Patient Time with patient: Greater than 35 minutes Subjective Date/time seen: 07/07/24 08:25 Interval history: 74-year-old male with history of 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 On review of his chart, he has been treated with multiple different antibiotics for urinary tract infections this year, at least 10 times this year upon review of his external medication history. Last urine culture taken 03/09/2024 grew out ESBL Escherichia coli for which he was treated with nitrofurantoin. Reviewing current ED document it reveals patient underwent baclofen pump at [facility]. Of note, he ws recently discharged from [facility] on 06/13/24 for UTI/bacteremia, Adynamic Ileus/Hematoma vs Infection around implanted subcutaneous pump. The emergency department he is afebrile, HTN. Supplemental oxygen ordered PRN. Not on anticoagulation per review of the medication list from custodial. Calcium corrects to normal in the setting of hypoalbuminemia. Normocytic anemia, stable from previous. BNP is slightly elevated but not to a degree to suggest acute heart failure given the reference range per patient's age. Patient has elevated D-dimer >1 so will proceed with CT imaging. Later in the day yesterday in ED, he was more alert and oriented, conversant. He states his throat gottlieb and he is thirsty. Other than that he also states he is lightheaded and he is aware that this morning he was confused and that this is not normal. According to ED note, he confirmed that he used to work in a [employer] and had significant asbestos exposure which explains the CT findings although he had not previously been aware of this. Posterior oropharynx with mild erythema. Denies cough. Will obtain Strep testing and given 1 time dose of dexamethasone as this has been shown to improve pharyngitis symptoms. Patient reassessed at approximately 4:00 p.m. He states the throat pain is better but he still feels ill. He has been sipping on water but now he is complaining of nausea and numbness. He states he has paresthesias are new. Every time patient is assessed his mentation seems to change. This is concerning for possible delirium. Possible baclofen overdose or that the device needs to be re-calibrated although I would anticipate that this would show a more sustained alteration/depression in mentation. When ED provider re- evaluated him at approximately 5:25 a.m., he was incredibly somnolent, sleeping protecting his airway but requiring sternal rub to awaken him. He states he still feels unwell and does not know why and does not feel comfortable returning to the facility 1/2 pt is seen and examined. He is awake and appropriate. states still foggy . states that last time he stayed here for 7 days and that is what he wants to do this time. no other acute complains. Review of Systems Review of Systems: All systems reviewed & are unremarkable except as noted in HPI and below Constitutional: Constitutional: Denies chills Respiratory: Respiratory: Denies chest congestion and Denies cough Gastrointestinal: Gastrointestinal: Denies abdominal pain Musculoskeletal: Musculoskeletal: Reports back pain Objective Data Vital Signs Vital Signs: Vital Signs - 24 hr 07/06/24 09:50 07/06/24 09:51 07/06/24 14:00 Temperature 98.1 F Pulse Rate 93 74 Respiratory Rate 16 Blood Pressure 173/72 H Pulse Oximetry 95 Oxygen Delivery Room Air 07/06/24 19:17 07/06/24 20:00 07/06/24 21:56 Temperature 98.8 F Pulse Rate 80 80 Respiratory Rate 16 Blood Pressure 161/70 H Pulse Oximetry 93 Oxygen Delivery Room Air 07/07/24 04:55 Temperature 97.9 F Pulse Rate 66 Respiratory Rate 20 Blood Pressure 155/73 H Pulse Oximetry 97 Oxygen Delivery Intake/Output Intake/Output: Intake & Output 07/04/24 07/05/24 07/06/24 07/07/24 23:59 23:59 23:59 23:59 Intake Total 1160 400 Output Total 1350 950 Balance -190 -550 Meds/Results Medications: Active Medications Generic Name Dose Route Start Last Admin Trade Name Freq PRN Reason Stop Dose Admin Acetaminophen 650 mg 07/05/24 17:32 Acetaminophen 325 Mg Tablet PO Q4H PRN Mild Pain (1-3) or Fever Ascorbic Acid 500 mg 07/06/24 09:00 07/06/24 09:51 Ascorbic Acid 500 Mg Tablet PO 500 mg DAILY NASRIN Administration Atorvastatin Calcium 80 mg 07/05/24 22:45 07/06/24 21:57 Atorvastatin 40 Mg Tablet PO 80 mg HS [facility] Administration Bisacodyl 10 mg 07/05/24 23:17 Bisacodyl 10 Mg Suppository RECTAL DAILY PRN constipation Cyclobenzaprine HCl 10 mg 07/05/24 22:45 07/06/24 21:55 Cyclobenzaprine Hcl 10 Mg Tablet PO 10 mg HS [facility] Administration Enoxaparin Sodium 40 mg 07/06/24 09:00 07/06/24 09:52 Enoxaparin 40 Mg/0.4 Ml Syringe SUB-Q 40 mg DAILY NASRIN Administration Ferrous Sulfate 325 mg 07/07/24 08:00 Ferrous Sulfate [address] BY MOUTH Q48H [facility] Folic Acid 1 mg 07/06/24 12:00 07/06/24 12:08 Folic Acid 1 Mg Tablet PO 1 mg DAILY@1200 [facility] Administration Guaifenesin 600 mg 07/05/24 22:44 Guaifenesin 12 Hr 600 Mg Tabcr PO Q12H PRN Allergic Symptoms Hydralazine HCl 50 mg 07/05/24 22:44 Hydralazine Hcl 50 Mg Tablet PO Q8H PRN Hypertension BP>160/80 Hydroxyzine HCl 25 mg 07/05/24 22:44 Hydroxyzine Hcl 25 Mg Tablet PO TID PRN Anxiety Ibuprofen 800 mg 07/05/24 22:44 Ibuprofen 400 Mg Tablet PO Q6-8H PRN Pain 4-6 Lactobacillus Acidophilus 1 tablet 07/06/24 09:00 07/06/24 17:22 Acidophilus/Bulgaricus Chewable Tablet BY MOUTH 1 tablet BID [facility] Administration Loratadine 10 mg 07/06/24 09:00 07/06/24 09:51 Loratadine 10 Mg Tablet PO 10 mg DAILY [facility] Administration Magnesium Citrate 150 ml 07/05/24 23:16 Magnesium Citrate 300 Ml Btl PO DAILY PRN constipation Melatonin 3 mg 07/05/24 22:50 07/06/24 21:57 Melatonin 3 Mg Tablet PO Not Given HS [facility] Metoprolol Tartrate 25 mg 07/05/24 22:50 07/06/24 21:56 Metoprolol Tartrate 25 Mg Tablet PO 25 mg Q12HR [facility] Administration Miconazole Nitrate 1 applic 07/05/24 22:48 Miconazole Nitrate 2% Cream 30 Gm Tube TOPICAL PRN PRN skin irritation Mirabegron 25 mg 07/06/24 09:00 07/06/24 09:51 Mirabegron 25 Mg Er Tablet PO 25 mg DAILY [facility] Administration Multivitamins/Minerals 1 tab 07/06/24 09:00 07/06/24 09:50 Multivitamins /C Lutein (Centrum Silver) Tablet *Bkc PO 1 tab DAILY [facility] Administration Ondansetron HCl 4 mg 07/05/24 17:32 Ondansetron Inj 4 Mg/2 Ml Vial IV PUSH Q4H PRN Nausea Pantoprazole Sodium 40 mg 07/05/24 22:50 07/06/24 21:56 Pantoprazole 40 Mg Tablet PO 40 mg Q12HR [facility] Administration Perflutren Lipid Microsphere 0 ml 07/05/24 23:46 Perflutren Lipid Microspheres 1.5 Ml Vial Diluted To 10 Ml Total Volume IV PUSH 07/08/24 23:46 ONCE PRN adequate visualization Protocol Polyethylene Glycol 17 gm 07/06/24 09:00 07/06/24 09:52 Polyethylene Glycol 3350 17 Gm Powd.Pack PO 17 gm DAILY NASRIN Administration Pregabalin 50 mg 07/06/24 09:00 07/06/24 17:23 Pregabalin (*Crx) 50 Mg Capsule PO 50 mg BID [facility]RIN Administration Pregabalin 100 mg 07/06/24 09:00 07/06/24 17:23 Pregabalin (*Crx) 50 Mg Capsule PO 100 mg BID [facility] Administration Senna 8.6 mg 07/05/24 23:07 Sennosides 8.6 Mg Tablet PO BID PRN constipation Simethicone 80 mg 07/05/24 22:44 Simethicone 80 Mg Tab.Chew PO BID PRN Indigestion Radiology Results: ITS Impressions Head CT 07/05/24 12:26 IMPRESSION: 1. Old left occipital lobe infarct. No acute intracranial process. Cervical Spine CT 07/05/24 12:35 IMPRESSION: 1. 20 degrees cervical levoscoliosis with moderate spondylosis. Chest X-Ray 07/05/24 12:41 IMPRESSION: 1. Mildly decreased lung volumes with opacities at the bilateral lower lung zones which could represent atelectasis, pneumonia, small pleural effusions or some combination thereof. 2. Cardiomegaly. Chest CTA 07/05/24 14:05 IMPRESSION: 1. No pulmonary embolism. 2. Asbestosis with bilateral calcified pleural plaques, subpleural bands of round atelectasis in bilateral lower lobes and lingula. 3. Small pleural effusion loculated along the right major fissure. 4. Cardiomegaly. Head/Neck CTA 07/05/24 16:25 IMPRESSION: No large vessel intracranial occlusion, high-grade intracranial stenosis, or a neurysm. No carotid or vertebral artery occlusion, dissection, or significant stenosis. Severe central canal stenosis at C3-4 secondary to degenerative changes. Labs Labs: Laboratory Results - last 24 hr 07/07/24 06:24 WBC 7.5 RBC 3.48 L Hgb 10.0 L Hct 32.0 L MCV 92.0 MCH 28.7 MCHC 31.3 L RDW 16.5 H Plt Count 186 MPV 10.6 H Immature Gran % (Auto) 0.4 Neut % (Auto) 71.3 Lymph % (Auto) 14.8 L [place] % (Auto) 12.7 H Eos % (Auto) 0.4 Baso % (Auto) 0.4 Lymph # (Auto) 1.11 [place] # (Auto) 1.0 H Eos # (Auto) 0.0 Baso # (Auto) 0.0 Abs Immat Gran (auto) 0.03 Absolute Neuts (auto) 5.4 Absolute Nucleated RBC 0.000 Nucleated RBC % 0.0 Sodium 139 Potassium 3.2 L Chloride 105 Carbon Dioxide 32 H Anion Gap 2 L BUN 32 H D Creatinine 1.10 Estim Creat Clear Calc 53 Estimated GFR > 60 Glucose 93 Calcium 8.2 L Total Bilirubin 0.6 AST 26 ALT 15 Alkaline Phosphatase 104 Total Protein 6.0 L Albumin 3.0 L
[2024-07-07] MEDS: PREGABALIN (*CRX) 50 MG CAPSULE 100 MG PO (08:56)
[2024-07-07] MEDS: MIRABEGRON 25 MG ER TABLET PO (08:57)
[2024-07-07] MEDS: MULTIVITAMINS /C LUTEIN (CENTRUM SILVER) TABLET *BKC 1 TAB PO (08:57)
[2024-07-07] MEDS: LORATADINE 10 MG TABLET PO (08:57)
[2024-07-07] MEDS: ACIDOPHILUS/BULGARICUS CHEWABLE TABLET 1 TABLET BY MOUTH (08:57)
[2024-07-07] MEDS: ASCORBIC ACID 500 MG TABLET PO (08:57)
[2024-07-07 08:58] VITALS: PULSE 70
[2024-07-07] MEDS: METOPROLOL TARTRATE 25 MG TABLET PO (08:58)
[2024-07-07] MEDS: PANTOPRAZOLE 40 MG TABLET PO (08:58)
[2024-07-07] MEDS: ENOXAPARIN 40 MG/0.4 ML SYRINGE SUB-Q (08:58)
[2024-07-07] MEDS: IBUPROFEN 400 MG TABLET 800 MG PO (09:07)
--- NOTE | 2024-07-07 11:18 | PM.DS ---
DS: Admitting Diagnosis Discharge Date 07/07 Admitting Diagnosis ams DS: Discharge Diagnosis Discharge Diagnosis (1) AMS (altered mental status): Qualifiers: Altered mental status type: unspecified Qualified Code(s): R41.82 - Altered mental status, unspecified Code(s): R41.82 - Altered mental status, unspecified Status: Acute Assessment and Plan: pt is alert and appropriate at this time ua collected-awaiting results- so far negative differentials: baclofen overdose vs uti (which is chronic ) vs other wbc normal 4.6 afebrile d dimer was elevated-so CT ordered to r/u PE 1. No pulmonary embolism. 2. Asbestosis with bilateral calcified pleural plaques, subpleural bands of round atelectasis in bilateral lower lobes and lingula. 3. Small pleural effusion loculated along the right major fissure. 4. Cardiomegaly. toxicology panel ordered and unremarkable so far when examined- he was alert and appropriate -unclear etiology for ams fluctuation- will ask for neurology consult (2) Quadriplegia, C5-C7, incomplete: Code(s): G82.54 - Quadriplegia, C5-C7 incomplete Status: Acute (3) Central stenosis of spinal canal: Code(s): M48.00 - Spinal stenosis, site unspecified Status: Acute (4) Chronic pain syndrome: Code(s): G89.4 - Chronic pain syndrome Status: Acute Assessment and Plan: baclofen pump in place resume home lyrica Plan # anemia- chronic- resume home iron supplement # htn - metoprol, hydralazine prn # gerd- resume home protonix DVT prophylaxis- lovenox DS: Summary Hospital Course Hospital Course: 74-year-old male with history of spinal 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 On review of his chart, he has been treated with multiple different antibiotics for urinary tract infections this year, at least 10 times this year upon review of his external medication history. Last urine culture taken 03/09/2024 grew out ESBL Escherichia coli for which he was treated with nitrofurantoin. Reviewing current ED document it reveals patient underwent baclofen pump at [facility]. Of note, he ws recently discharged from [facility] on 06/13/24 for UTI/bacteremia, Adynamic Ileus/Hematoma vs Infection around implanted subcutaneous pump. The emergency department he is afebrile, HTN. Supplemental oxygen ordered PRN. Not on anticoagulation per review of the medication list from detention. Calcium corrects to normal in the setting of hypoalbuminemia. Normocytic anemia, stable from previous. BNP is slightly elevated but not to a degree to suggest acute heart failure given the reference range per patient's age. Patient has elevated D-dimer >[address] imaging. Later in the day yesterday in ED, he was more alert and oriented, conversant. He states his throat gottlieb and he is thirsty. Other than that he also states he is lightheaded and he is aware that this morning he was confused and that this is not normal. 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 Posterior oropharynx with mild erythema. Denies cough. Will obtain Strep testing and given 1 time dose of dexamethasone as this has been shown to improve pharyngitis symptoms. Patient reassessed at approximately 4:00 p.m. He states the throat pain is better but he still feels ill. He has been sipping on water but now he is complaining of nausea and numbness. He states he has paresthesias are new. Every time patient is assessed his mentation seems to change. This is concerning for possible delirium. Possible baclofen overdose or that the device needs to be re-calibrated although I would anticipate that this would show a more sustained alteration/depression in mentation. When ED provider re-evaluated him at approximately 5:25 a.m., he was incredibly somnolent, sleeping protecting his airway but requiring sternal rub to awaken him. He states he still feels unwell and does not know why and does not feel comfortable returning to the facility 1/2 pt is seen and examined. He is awake and appropriate. states still foggy . states that last time he stayed here for 7 days and that is what he wants to do this time. no other acute complains. 1/3 - ua is wnl, no other explanation for pt feeling foggy . pt is alert and appropriate. will discharge with a close f/u with pcp/neurology Status at Discharge Functional status at discharge: bed bound Overall status at discharge: patient is back to baseline Time Spent with Patient Time attestation: Total time spent providing and/or coordinating discharge services: Time spent: Greater than 30 minutes Exam Const: General: comfortable Resp: Effort & Inspection: normal respiratory effort Auscultation: clear to auscultation bilaterally Cardio: Rate: regular rate GI: GI Palp: Yes Soft to palpation Urinary Catheter: Urinary Catheter: other (suprapubic cath in place) Psych: Mental Status: mental status grossly normal Affect: normal affect DS: Data Data Completed and Pending Completed studies during hospitalization: chest xray, cervical spine ct, head ct, chest cta Labs on day of discharge: Labs from last 24 hours 07/07/24 07/07/24 06:24 06:21 WBC 7.5 Cancelled RBC 3.48 L Cancelled Hgb 10.0 L Cancelled Hct 32.0 L Cancelled MCV 92.0 Cancelled MCH 28.7 Cancelled MCHC 31.3 L Cancelled RDW 16.5 H Cancelled Plt Count 186 Cancelled MPV 10.6 H Cancelled Immature Gran % (Auto) 0.4 Neut % (Auto) 71.3 Lymph % (Auto) 14.8 L [place] % (Auto) 12.7 H Eos % (Auto) 0.4 Baso % (Auto) 0.4 Lymph # (Auto) 1.11 [place] # (Auto) 1.0 H Eos # (Auto) 0.0 Baso # (Auto) 0.0 Abs Immat Gran (auto) 0.03 Absolute Neuts (auto) 5.4 Absolute Nucleated RBC 0.000 Nucleated RBC % 0.0 % Immature Plt Fraction Cancelled Sodium 139 Cancelled Potassium 3.2 L Cancelled Chloride 105 Cancelled Carbon Dioxide 32 H Cancelled Anion Gap 2 L Cancelled BUN 32 H D Cancelled Creatinine 1.10 Cancelled Estim Creat Clear Calc 53 Cancelled Estimated GFR > 60 Cancelled Glucose 93 Cancelled Calcium 8.2 L Cancelled Total Bilirubin 0.6 AST 26 ALT 15 Alkaline Phosphatase 104 Total Protein 6.0 L Albumin 3.0 L Discharge Plan Discharge Attending physician on discharge: Bishnu Horne Discharging Clinician: Megan Rogers Activity: november shower Diet: as tolerated and regular Patient Language: Irish Discharge Medications: Continued magnesium citrate [OneLAX Magnesium Citrate] Solution 150 ml PO DAILY PRN (Reason: constipation) Qty: 296 0RF metoprolol tartrate 25 mg tablet 25 mg PO Q12H methenamine hippurate [Hiprex] 1 gram Tablet 1 g PO BID pantoprazole [Protonix] 40 mg Tablet,Delayed Release (Dr/Ec) 40 mg PO Q12H ascorbic acid (vitamin C) 500 mg Tablet,Chewable 500 mg PO DAILY ibuprofen 400 mg Tablet 800 mg PO Q6-8H PRN (Reason: Pain) acidophilus-pectin, citrus 100 million cell-10 mg Capsule 1 cap PO BID cranberry 450 mg Tablet 450 mg PO BID Rx Instructions: administer with meals hydroxyzine HCl 25 mg tablet 25 mg PO TID PRN (Reason: Anxiety) cyclobenzaprine 10 mg tablet 10 mg PO HS miconazole nitrate 2 % cream 1 applic TOPICAL PRN bisacodyl 10 mg suppository 10 mg RECTAL DAILY PRN (Reason: constipation) Rx Instructions: IF NO BM X 3DAYS senna 8.6 mg capsule 8.6 mg PO BID PRN (Reason: constipation) Rx Instructions: IF NO BM X 3 DAYS zinc oxide-petrolatum 20-51 % paste 1 applic topical DAILY PRN (Reason: skin irritation) Rx Instructions: TO REDDENED OR EXCORIATED SKIN FOR PREVENTION AND PROTECTIVE MEASURES melatonin 3 mg tablet 3 mg PO HS Adults Multivitamin 18 mg iron-400 mcg-25 mcg tablet 1 tablet PO DAILY loratadine [Claritin] 10 mg tablet 10 mg PO DAILY atorvastatin 80 mg Tablet 80 mg PO HS acetaminophen tablet 1,000 mg PO Q6H PRN (Reason: Pain) ferrous sulfate 325 mg (65 mg iron) Tablet 325 mg PO EVERY OTHER DAY folic acid 1 mg PO DAILY@1200 pregabalin [Lyrica] 100 mg Capsule 100 mg PO BID polyethylene glycol 3350 [Miralax] 17 gram/dose Powder 17 g PO DAILY PRN (Reason: Constipation) [id number] cb#1 11-11 % Cream 1 applic TOPICAL Q4H PRN (Reason: Pain) Rx Instructions: apply to back mirabegron 25 mg Tablet Extended Release 24 Hr 25 mg PO DAILY guaifenesin [Mucinex] 600 mg Tablet Extended Release 12hr 600 mg PO Q12H PRN (Reason: Allergic Symptoms) simethicone [Gas Relief (simethicone)] 80 mg Tablet,Chewable 80 mg PO BID PRN (Reason: Indigestion) hydralazine 50 mg Tablet 50 mg PO Q8H PRN (Reason: Hypertension) Rx Instructions: BP>160/80 naloxone 4 mg/actuation spray,non-aerosol 1 spray INTRANASAL DIRECTED PRN (Reason: Opiate Reversal) Date of admission: 07/05/24 17:32 Primary Care Provider: JacquelynRod Admitting Provider: Dexter Damian Attending physician on admission: Dexter Damian Condition: Stable Hospitalist MIPS Heart Failure (Exclusion) Patient has history of Heart Transplant or Left Ventricular Assistive Device?: No IF YES, STOP HERE Heart Failure (Qualifier) Patient has current or prior documentation of LVEF less than or equal to 40%, or mod/servere depressed LVSF?: No IF NO, STOP HERE
[2024-07-07] MEDS: FOLIC ACID 1 MG TABLET PO (12:41)
[2024-07-07 14:00] VITALS: BP 125/56; PULSE 65; RESP 20; TEMP 36.6; O2SAT 98
[2024-07-07 15:59] LABS: SARS-CoV-2 RNA PCR Negative (Negative)
== END 2024-07-07 18:05 ==
LOC: ANHED 09:39 → ANH2MED 19:02 → ANH3MEDSUR 07-11 07:33
PROVIDERS: Nurse Practitioner; Admitting Provider Internal Medicine; Emergency Provider Student in an Organized Health Care Education/Training Program; PCP Internal Medicine; Visit Provider General Practice
DX: R41.82 Altered mental status, unspecified (principal); G82.54 Quadriplegia, C5-C7 incomplete; S14.155S Other incomplete lesion at C5 level of cervical spinal cord, sequela; V29.99XS Rider (driver) (passenger) of other motorcycle injured in unspecified traffic accident, sequela; M48.02 Spinal stenosis, cervical region; G89.4 Chronic pain syndrome; Z96.89 Presence of other specified functional implants; D64.9 Anemia, unspecified; R79.1 Abnormal coagulation profile; I10 Essential (primary) hypertension; K21.9 Gastro-esophageal reflux disease without esophagitis; K59.2 Neurogenic bowel, not elsewhere classified; N31.9 Neuromuscular dysfunction of bladder, unspecified; I69.398 Other sequelae of cerebral infarction; H53.8 Other visual disturbances; I44.0 Atrioventricular block, first degree; I51.7 Cardiomegaly; J92.0 Pleural plaque with presence of asbestos; J90 Pleural effusion, not elsewhere classified; E88.09 Other disorders of plasma-protein metabolism, not elsewhere classified; Z74.01 Bed confinement status; Z20.822 Contact with and (suspected) exposure to COVID-19; Z86.16 Personal history of COVID-19; Z79.2 Long term (current) use of antibiotics; Z79.899 Other long term (current) drug therapy; Z86.718 Personal history of other venous thrombosis and embolism; Z97.8 Presence of other specified devices; Z87.891 Personal history of nicotine dependence
CPT/HCPCS: 36415; 36600; 70450; 70496; 70498; 71045; 71275; 72125; 80053; 80143; 80179; 80307; 81001; 82077; 82140; 82550; 82805; 82948; 83880; 84443; 84484; 85018; 85025; 85027; 85380; 85610; 85730; 87635; 87637; 87651; 93005; 96372; 96374; 96376; 99285; A9270; G0378; J1650; J2405; J8540; Q9967

== ENCOUNTER 2024-08-11 11:15 | Emergency (ER) | payer MEDICARE, OTHER, MEDICAID, SELFPAY ==
[2024-08-11 11:30] VITALS: BP 161/66; O2SAT 98
[2024-08-11 11:31] VITALS: BP 161/66; PULSE 57; RESP 16; TEMP 36.7; O2SAT 98; O2SAT 99
[2024-08-11 11:45] VITALS: O2SAT 99
--- OUTSIDE RECORDS SUMMARY | 2024-08-11 12:49 | XMS_ITS | Referral Summary ---
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 vorced, , never , or living with a partner? 04/15/2023 AUDIT-C Answer Date Recorded Q1: How often do you have a drink containing alcohol? Never 04/14/2023 Q2: How many drinks containi ng alcohol do you have on a typical day when you are drinking? Patient does not drink Q3: How often do you have si x or more drinks on one occasion? Never 04/14/2023 Overall Financial Resource Strain (CARDIA) Answe r Date Recorded How hard is it for you to pa y for the very basics like food, housing, medical care, and heating? Not hard at all 04/15/2023 PHQ-2 Answer Date Recorded PHQ-2 Total Score 0 04/15/2023 Hunger Vital Sign Answer Date Recorded Within the past 12 months, y ou worried that your food would run out before you got the money to buy more. Never true 04/15/20 23 Within the past 12 months, t he food you bought just didn't last and you didn't have money to get more. Never true 04/15/2023 PRAPARE - Transportation Answer Date Re corded In the past 12 months, has l ack of transportation kept you from medical appointments or from getting medications? No 04/04 In the past 12 months, has l ack of transportation kept you from meetings, work, or from getting things needed for daily living? No 04/15/2023 Housing Stability Vital Sign Answer Fidel e Recorded In the last 12 months, was t here a time when you were not able to pay the mortgage or rent on time? No 04/15/2023 In the last 12 months, how many places have you lived? 1 04/15/2023 In the last 12 months, was t here a time when you did not have a steady place to sleep or slept in a long-term (including now)? No 04/15/2023 Personal Safety Answer Date Recorded Have you ever been in or are you currently in a harmful physical or emotional relationship or is someone making you feel afraid or unsafe? Denies 06/20/2024 Sex and Gender Information Value Date Recorded Sex Assigned at Not on file Legal Sex Male 7:31 PM WOOD PATTERNMAKER Gender Identity Not on file Sexual Orientation Not on file Last Filed Vital Signs Vital Sign Reading Time Taken Comments Blood Pressure 161/67 06/23/2024 8:28 AM WOOD PATTERNMAKER Pulse 63 06/23/2024 8:28 AM WOOD PATTERNMAKER Temperature 36.6 C (97.8 F) 06/23/2024 5:30 AM WOOD PATTERNMAKER Respiratory Rate 18 06/23/2024 8:28 AM WOOD PATTERNMAKER Oxygen Saturation 99% 06/23/2024 8:28 AM WOOD PATTERNMAKER Inhaled Oxygen Concentration - - Weight 85.5 kg (188 lb 9.6 oz) 06/22/2024 5:25 P M WOOD PATTERNMAKER Height 190.5 cm (6' 3 ) 06/22/2024 5:25 PM WOOD PATTERNMAKER Body Mass Index 23.57 06/22/2024 5:25 PM WOOD PATTERNMAKER Plan of Treatment Not on file Medical Devices Implanted Type Area Administrative Services Director Device Identifier Shelf Expiration Date Model / Serial / Lot [employer] Coil Embolization Coated Detachable Helical Concerto [id number] Nylon Mz-4-16-[place] - [id number] Implanted:Qty: 1 on 04/01/2023 at [facility] [employer] 07/22/2025 NV-4-10-HEL IX / / [id number] [employer] Coil Embolization Coated Detachable Helical Concerto [id number] Nylon Zc-5-80-[place] - [id number] Implanted:Qty: 1 on 04/01/2023 at [facility] [employer] 09/23/2025 NV-5-20-HEL IX / / [id number] [employer] Coil Embolization Coated Detachable Helical Concerto [id number] Nylon Mp-4-43-[place] - [id number] Implanted:Qty: 1 on 04/01/2023 at [facility] [employer] 08/27/2025 NV-5-15-HEL IX / / [id number] Kids Note Angio-Seal Vip 6fr Closere Device [id number] - [id number] Implanted:Qty: 1 on 04/01/2023 at [facility] [email or web address] 10/03/2023 [id number] / / [id number] Procedures Procedure Name Priority Date/Time Associated Diagnosis Comments DIFFERENTIAL AUTO Timed 06/22/2024 8:5 9 PM WOOD PATTERNMAKER CBC WITH AUTO DIFFERENTIAL Timed 06/22/2024 8:59 PM WOOD PATTERNMAKER THYROID FUNCTION CASCADE Routine 06/22/2024 5:06 AM WOOD PATTERNMAKER VITAMIN D 25 HYDROXY Routine 06/22/2024 5:06 AM WOOD PATTERNMAKER EGFR Routine 06/22/2024 5:06 AM WOOD PATTERNMAKER DIFFERENTIAL AUTO Routine 06/22/2024 5:0 6 AM WOOD PATTERNMAKER CBC WITH AUTO DIFFERENTIAL Routine 06/22/2024 5:06 AM WOOD PATTERNMAKER BASIC METABOLIC PANEL Routine 06/22/2024 5:06 AM WOOD PATTERNMAKER RETICULOCYTES Routine 06/21/2024 5:41 AM WOOD PATTERNMAKER IRON PROFILE W/ IBC Routine 06/21/2024 5 :41 AM WOOD PATTERNMAKER FERRITIN Routine 06/21/2024 5:41 AM WOOD PATTERNMAKER FOLATE Routine 06/21/2024 5:41 AM WOOD PATTERNMAKER VITAMIN B12 Routine 06/21/2024 5:41 AM WOOD PATTERNMAKER BLOOD CULTURE Routine 06/21/2024 5:41 AM WOOD PATTERNMAKER BLOOD CULTURE Routine 06/21/2024 5:41 AM WOOD PATTERNMAKER TROPONIN I HIGH-SENSITIVITY 2-HOUR Timed 06/21/2024 4:14 AM WOOD PATTERNMAKER URINALYSIS, MICROSCOPIC ONLY STAT 06/21/2024 4:12 AM WOOD PATTERNMAKER URINE CULTURE Routine 06/21/2024 4:12 AM WOOD PATTERNMAKER URINALYSIS AND REFLEX TO MICROSCOPIC AND CULTURE STAT 06/21/2024 4:12 AM WOOD PATTERNMAKER ECG 12-LEAD Routine 06/21/2024 2:[address] HEAD WO CONTRAST ED 06/21/2024 1 :[address] ABDOMEN PELVIS W CONTRAST ED 06/21/2024 1:33 AM WOOD PATTERNMAKER XR CHEST 1 VIEW ED 06/21/2024 1:30 AM WOOD PATTERNMAKER RESPIRATORY PATHOGEN PANEL Routine 06/21/2024 1:13 AM WOOD PATTERNMAKER POCT CREATININE - DEVICE Routine 06/21/2024 12:41 AM WOOD PATTERNMAKER EGFR STAT 06/21/2024 12:33 AM WOOD PATTERNMAKER DIFFERENTIAL AUTO Routine 06/21/2024 12: 33 AM WOOD PATTERNMAKER LIPASE STAT 06/21/2024 12:33 AM WOOD PATTERNMAKER TROPONIN I HIGH-SENSITIVITY SERIES (BASELINE, 2HR, 4HR, 6HR) STAT 06/21/2024 12:33 AM WOOD PATTERNMAKER MAGNESIUM Routine 06/21/2024 12:33 AM WOOD PATTERNMAKER COMPREHENSIVE METABOLIC PANEL STAT 06/21/2024 12:33 AM WOOD PATTERNMAKER CBC WITH AUTO DIFFERENTIAL Routine 06/21/2024 12:33 AM WOOD PATTERNMAKER XR SHOULDER RIGHT 2 OR MORE VIEWS ED Urgent/IP Urgent 05/17/2024 6:52 PM WOOD PATTERNMAKER COLONOSCOPY 01/01/2020 8:32 AM CDT from Last 3 Months or Most Recently Relevant to Health Maintenance Results * Differential, auto (06/22/2024 8:59 PM WOOD PATTERNMAKER) Neutrophil abs 5.7 1.5 - 6.5 K/cumm Imm gran abs 0.0 0.0 - 0.1 K/cumm [facility] Lymphocyte abs 0.9 0.8 - 3.3 K/cumm [facility] Monocyte abs 0.7 0.2 - 0.8 K/cumm [facility] Eosinophil abs 0.2 0.0 - 0.5 K/cumm [facility] Basophil abs 0.0 0.0 - 0.1 K/cumm [facility] Neutrophil pct 76.3 % [facility] Comment: Interpretive Data Percent cell count reference ranges are not reported, since discordance with absolute values may lead to misinterpretation of CBC data. Current Interpretive Data was last revised on 2017. Imm gran pct 0.4 % [facility] Comment: Interpretive Data Percent cell count reference ranges are not reported, since discordance with absolute values may lead to misinterpretation of CBC data. Current Interpretive Data was last revised on 2017. Lymphocyte pct 11.5 % [facility] Comment: Interpretive Data Percent cell count reference ranges are not reported, since discordance with absolute values may lead to misinterpretation of CBC data. Current Interpretive Data was last revised on 2017. Monocyte pct 9.5 % [facility] Comment: Interpretive Data Percent cell count reference ranges are not reported, since discordance with absolute values may lead to misinterpretation of CBC data. Current Interpretive Data was last revised on 2017. Eosinophil pct 2.0 % [facility] Comment: Interpretive Data Percent cell count reference ranges are not reported, since discordance with absolute values may lead to misinterpretation of CBC data. Current Interpretive Data was last revised on 2017. Basophil pct 0.3 % [facility] Comment: Interpretive Data Percent cell count reference ranges are not reported, since discordance with absolute values may lead to misinterpretation of CBC data. Current Interpretive Data was last revised on 2017. Blood 06/22/2024 8:59 PM WOOD PATTERNMAKER 06/22/2024 9:14 PM WOOD PATTERNMAKER Adalberto Rogers MD LAB BLOOD ORDERABLES Johanne l Result Performing Organization Address [facility] Co de Phone Number [facility] Department [place] [address] * (ABNORMAL) CBC with auto differential (06/22/2024 8:59 PM WOOD PATTERNMAKER) WBC 7.5 3.8 - 9.9 K/cumm Hgb 10.3(L) 13.0 - 17.5 g/dL [facility] Hct 32.6(L) 38.9 - 50.3 % [facility] Plt 226 150 - 400 K/cumm [facility] MPV 10.9 9.1 - 12.3 fL [facility] RBC 3.63(L) 4.30 - 5.80 M/cumm [facility] MCV 89.8 81.3 - 96.4 fL [facility] MCH 28.4 27.1 - 33.3 pg [facility] MCHC 31.6(L) 32.3 - 35.7 g/dL [facility] RDW CV 15.2(H) 11.1 - 14.9 % [facility] RDW SD 49.4(H) 35.7 - 48.1 fL [facility] NRBC abs 0.00 0.00 - 0.01 K/cumm [facility] Blood 06/22/2024 8:59 PM WOOD PATTERNMAKER 06/22/2024 9:14 PM WOOD PATTERNMAKER Adalberto Rogers MD LAB BLOOD ORDERABLES Johanne l Result Performing Organization Address City/[facility]/ZIP Co de Phone Number [facility] [place] [address] * eGFR (06/22/2024 5:06 AM WOOD PATTERNMAKER) eGFR >90 >=60 mL/min/1. 73 m2 Comment: Interpretive Data Reference Interval Normal >/= 90 mL/min/1.73m2 Mildly decreased* 60 - 89 mL/min/1.73m2 Mildly to moderately decreased 45 - 59 mL/min/1.73m2 Moderately to severely decreased 30 - 44 mL/min/1.73m2 Severely decreased 15 - 29 mL/min/1.73m2 Kidney Failure < 15 mL/min/1.73m2 *Relative to young adult level Estimated glomerular filtration rate is determined by the 2020 CKD-EPI equation recommended by the National Kidney Foundation (A Unifying Approach to GFR Estimation: Recommendations of the NKF-ASK Task Force on Reassessing the Inclusion of Race in Diagnosing Kidney Disease, JASN 2020). The CKD-EPI equation should not be used for patients with unstable renal function and has not been validated in children and those over 70. Current interpretive data was last reviewed 2021. Blood 06/22/2024 5:06 AM WOOD PATTERNMAKER 06/22/2024 5:17 AM WOOD PATTERNMAKER us Rayray LAZAR LAB BLOOD ORDERABL ES Final Result [facility] [place] [address] * (ABNORMAL) Differential, auto (06/22/2024 5:06 AM WOOD PATTERNMAKER) Neutrophil abs 6.9(H) 1.5 - 6.5 K/cumm Imm gran abs 0.0 0.0 - 0.1 K/cumm [facility] Lymphocyte abs 0.5(L) 0.8 - 3.3 K/cumm [facility] Monocyte abs 0.7 0.2 - 0.8 K/cumm [facility] Eosinophil abs 0.2 0.0 - 0.5 K/cumm [facility] Basophil abs 0.0 0.0 - 0.1 K/cumm [facility] Neutrophil pct 82.3 % [facility] Comment: Interpretive Data Percent cell count reference ranges are not reported, since discordance with absolute values may lead to misinterpretation of CBC data. Current Interpretive Data was last revised on 2017. Imm gran pct 0.4 % [facility] Comment: Interpretive Data Percent cell count reference ranges are not reported, since discordance with absolute values may lead to misinterpretation of CBC data. Current Interpretive Data was last revised on 2017. Lymphocyte pct 6.4 % [facility] Comment: Interpretive Data Percent cell count reference ranges are not reported, since discordance with absolute values may lead to misinterpretation of CBC data. Current Interpretive Data was last revised on 2017. Monocyte pct 8.6 % [facility] Comment: Interpretive Data Percent cell count reference ranges are not reported, since discordance with absolute values may lead to misinterpretation of CBC data. Current Interpretive Data was last revised on 2017. Eosinophil pct 1.9 % [facility] Comment: Interpretive Data Percent cell count reference ranges are not reported, since discordance with absolute values may lead to misinterpretation of CBC data. Current Interpretive Data was last revised on 2017. Basophil pct 0.4 % [facility] Comment: Interpretive Data Percent cell count reference ranges are not reported, since discordance with absolute values may lead to misinterpretation of CBC data. Current Interpretive Data was last revised on 2017. Blood 06/22/2024 5:06 AM WOOD PATTERNMAKER 06/22/2024 5:17 AM WOOD PATTERNMAKER us Rayray LAZAR LAB BLOOD ORDERABL ES Final Result [facility] [place] [address] * Thyroid Function [place] (06/22/2024 5:06 AM WOOD PATTERNMAKER) TSH 2.28 0.30 - 4.20 mcIUnit/mL Blood 06/22/2024 5:06 AM WOOD PATTERNMAKER 06/22/2024 5:17 AM WOOD PATTERNMAKER Adalberto Cervantes MD LAB BLOOD ORDERABLES Final Res ult Performing Organization Address City/[facility]/ZIP Co de Phone Number [facility] [place] [place] [address] * (ABNORMAL) CBC with auto differential (06/22/2024 5:06 AM WOOD PATTERNMAKER) Pathologist [facility] WBC 8.4 3.8 - 9.9 K/cumm Hgb 11.2(L) 13.0 - 17.5 g/dL [facility] Hct 35.3(L) 38.9 - 50.3 % [facility] Plt 244 150 - 400 K/cumm [facility] MPV 10.3 9.1 - 12.3 fL [facility] RBC 3.91(L) 4.30 - 5.80 M/cumm [facility] MCV 90.3 81.3 - 96.4 fL [facility] MCH 28.6 27.1 - 33.3 pg [facility] MCHC 31.7(L) 32.3 - 35.7 g/dL [facility] RDW CV 15.2(H) 11.1 - 14.9 % [facility] RDW SD 50.5(H) 35.7 - 48.1 fL [facility] NRBC abs 0.00 0.00 - 0.01 K/cumm [facility] Blood 06/22/2024 5:06 AM WOOD PATTERNMAKER 06/22/2024 5:17 AM WOOD PATTERNMAKER us Rayray LAZAR LAB BLOOD ORDERABL ES Final Result [facility] [place] [address] * Vitamin D 25 hydroxy (06/22/2024 5:06 AM WOOD PATTERNMAKER) Vitamin D 25-OH 33 30 - 80 ng/mL Blood 06/22/2024 5:06 AM WOOD PATTERNMAKER 06/22/2024 5:17 AM WOOD PATTERNMAKER us Adalberto Cervantes MD LAB BLOOD ORDERABLES Final Res ult [facility] Department [place] [address] * (ABNORMAL) Basic metabolic panel (06/22/2024 5:06 AM WOOD PATTERNMAKER) Pathologist [facility] Sodium 145 135 - 145 mmol/L Potassium, pl 3.8 3.3 - 4.9 mmol/L [facility] Chloride 107 97 - 110 mmol/L [facility] CO2 31 22 - 32 mmol/L [facility] Anion gap 7 2 - 15 mmol/L [facility] BUN 21 6 - 25 mg/dL [facility] Creatinine 0.69(L) 0.80 - 1.30 mg/dL [facility] Glucose 86 70 - 199 mg/dL [facility] Comment: Interpretive Data Fasting glucose >/= 126 mg/dl is diagnostic for diabetes. Fasting is defined as no caloric intake for at least 8 hours. Fasting glucose between 100 mg/dl to 125 mg/dl is diagnostic of prediabetes. In a patient with classic symptoms of hyperglycemia or hyperglycemic crisis, a random glucose >/= 200 mg/dl is diagnostic for diabetes. In the absence of unequivocal hyperglycemia, results should be confirmed by repeat testing. The classification and Diagnosis of Diabetes Diabetes Care 2021; 46: S19-S40. Current interpretive data was last revised 2022. Calcium 8.4(L) 8.5 - 10.3 mg/dL [facility] Blood 06/22/2024 5:06 AM WOOD PATTERNMAKER 06/22/2024 5:17 AM WOOD PATTERNMAKER us Rayray LAZAR LAB BLOOD ORDERABL ES Final Result Performing Organization Address [facility]/ZIP Co de Phone Number [facility] Department [place] [address] * (ABNORMAL) Iron profile w/ IBC (06/21/2024 5:41 AM WOOD PATTERNMAKER) Iron 34(L) 50 - 150 mcg/dL TIBC 181(L) 250 - 400 mcg/dL [facility] Transferrin saturation 19(L) 20 - 50 % [facility] Blood 06/21/2024 5:41 AM WOOD PATTERNMAKER 06/21/2024 5:49 AM WOOD PATTERNMAKER Estrella Moreno MD LAB BLOOD ORDERA BLES Final Result [facility] Department [place] [address] * Blood culture Blood (06/21/2024 5:41 AM WOOD PATTERNMAKER) Pathologist [facility] Report Final Report: No growth Blood 06/21/2024 5:41 AM WOOD PATTERNMAKER 06/21/2024 6:17 AM WOOD PATTERNMAKER Narrative [facility] - 06/25/2024 7:01 AM WOOD PATTERNMAKER Collection->Peripheral first location 1. Blood cultures are incubated for 4 days on a continuously monitored blood culture system. The first report of a negative culture is issued within 24 hours of receipt of the specimen in the laboratory. 2. Positive culture results are reported as soon as they are detected. 3. The most important factor for detection of microbes in the setting of bloodstream infection is the volume of blood submitted for culture. Failure to collect an optimal blood volume can result in false negative blood cultures. 4. For pediatric patients, the recommended blood volume to collect follows a weight based strategy. See the electronic test catalog for collection instructions. 5. For positive blood cultures, a rapid molecular test may be performed for organism identification using the amalia ePlex blood culture identification panel for gram positive (BCID-GP) and gram negative (BCID-GN) organisms. This nucleic acid amplification test detects microbial DNA in positive blood culture broth. This assay has been cleared by the [place] Food and Drug Administration and its performance characteristics have been verified by the [facility] Microbiology Laboratory. For questions about this culture, contact the Microbiology Laboratory at [phone]. Interpretive data was last revised on 24. Estrella Moreno MD LAB MICROBIOLOGY - GENERAL ORDERABLES Final Result [facility] Department [place] [address] * Blood culture Blood (06/21/2024 5:41 AM WOOD PATTERNMAKER) Report Final Report: No growth Blood 06/21/2024 5:41 AM WOOD PATTERNMAKER 06/21/2024 6:17 AM WOOD PATTERNMAKER Narrative [facility] - 06/25/2024 7:00 AM WOOD PATTERNMAKER Collection->Peripheral first location 1. Blood cultures are incubated for 4 days on a continuously monitored blood culture system. The first report of a negative culture is issued within 24 hours of receipt of the specimen in the laboratory. 2. Positive culture results are reported as soon as they are detected. 3. The most important factor for detection of microbes in the setting of bloodstream infection is the volume of blood submitted for culture. Failure to collect an optimal blood volume can result in false negative blood cultures. 4. For pediatric patients, the recommended blood volume to collect follows a weight based strategy. See the electronic test catalog for collection instructions. 5. For positive blood cultures, a rapid molecular test may be performed for organism identification using the amalia ePlex blood culture identification panel for gram positive (BCID-GP) and gram negative (BCID-GN) organisms. This nucleic acid amplification test detects microbial DNA in positive blood culture broth. This assay has been cleared by the [place] Food and Drug Administration and its performance characteristics have been verified by the [facility]biology Laboratory. For questions about this culture, contact the Microbiology Laboratory at [phone]. Interpretive data was last revised on 24. us Estrella Moreno MD LAB MICROBIOLOGY - GENERAL ORDERABLES Final Result [facility] Department [place] [address] * (ABNORMAL) Reticulocyte Count (06/21/2024 5:41 AM WOOD PATTERNMAKER) Pathologist [facility] Retics, absolute 0.067 0.020 - 0.087 M/cumm Retics 1.6 0.4 - 2.9 % [facility] Reticulocyte Hgb 30.3(L) 30.5 - 38.0 pg [facility] Blood 06/21/2024 5:41 AM WOOD PATTERNMAKER 06/21/2024 5:49 AM WOOD PATTERNMAKER Estrella Moreno MD LAB BLOOD ORDERA BLES Final Result [facility] [place] [address] * Folate (06/21/2024 5:41 AM WOOD PATTERNMAKER) [facility] Folic acid >20.0 >=5.0 ng/mL Blood 06/21/2024 5:41 AM WOOD PATTERNMAKER 06/21/2024 5:49 AM WOOD PATTERNMAKER Estrella Moreno MD LAB BLOOD ORDERA BLES Final Result Performing Organization Address City/[facility]/ZIP Co de Phone Number [facility] Department [place] [address] * Ferritin (06/21/2024 5:41 AM WOOD PATTERNMAKER) [facility] Ferritin 233 30 - 400 ng/mL Blood 06/21/2024 5:41 AM WOOD PATTERNMAKER 06/21/2024 5:49 AM WOOD PATTERNMAKER Estrella Moreno MD LAB BLOOD ORDERA BLES Final Result Performing Organization Address City/[facility]/ZIP Co de Phone Number [facility] [place] [address] * Vitamin B12 (06/21/2024 5:41 AM WOOD PATTERNMAKER) [facility] Vitamin B12 721 230 - 1,250 pg/mL Blood 06/21/2024 5:41 AM WOOD PATTERNMAKER 06/21/2024 5:49 AM WOOD PATTERNMAKER Estrella Moreno MD LAB BLOOD ORDERA BLES Final Result Performing Organization Address [facility] Co de Phone Number [facility] [place] [address] * Troponin I high-sensitivity 2-hour (06/21/2024 4:14 AM WOOD PATTERNMAKER) [facility] Trop I hs 11 <=35 ng/L Comment: Interpretive Data For further hscTnI resources including the diagnostic algorithm and an aid in interpretation, copy and paste this link: https://bjhlab.testcatalog.org/show/[email or web address] Current Interpretive Data last revised 2020. Trop I hs delta See Comment ng/L [facility] Comment:Inappropriate collec tion time to report a delta. Trop I hs pct delta See Comment % [facility] Comment:Inappropriate collec tion time to report a delta. Trop I hs interp See Comment [facility] Comment:Inappropriate collec tion time to report a delta. Blood 06/21/2024 4:14 AM WOOD PATTERNMAKER 06/21/2024 4:43 AM WOOD PATTERNMAKER Jefferson Downing MD LAB BLOOD ORDERABLES Final Res ult Performing Organization Address [facility] Co de Phone Number [facility] [place] [address] * (ABNORMAL) Urinalysis reflex to microscopic and culture Urine (06/21/2024 4:12 AM WOOD PATTERNMAKER) [facility] Color, ur Straw Yellow Clarity, ur Clear Clear [facility] Specific gravity, ur >1.042(H) 1.003 - 1.030 [facility] pH, urine 7.0 [facility] Comment: Interpretive Data U rine pH is affected by diet, medications, systemic acid-base disturbances, and renal tubular function. pH may affect urinary stone formation. For example, urine pH below 6.0 may help reduce the tendency for calcium phosphate stones and pH greater than 6.0 may reduce the tendency for uric acid stone formation. Source: [facility] Current Interpretive Data was last revised on 2017 Protein, ur ql Trace Negative [facility] Glucose, ur ql Negative Negative [facility] Ketones, ur 1+(A) Negative [facility] Bilirubin, ur Negative Negative [facility] Blood, ur 3+(A) Negative [facility] Urobilinogen, ur <2.0 <2.0 mg/dL [facility] Nitrite, ur Negative Negative [facility] Leukocyte esterase, ur Trace(A) Negative [facility] UA reflex comment Reflex to microscopic UA will be performed. [facility] Urine 06/21/2024 4:12 AM WOOD PATTERNMAKER 06/21/2024 4:30 AM WOOD PATTERNMAKER Jefferson Downing MD LAB MICROBIOLOGY - GENERAL ORD ERABLES Final Result Performing Organization Address City/State/[facility] Co de Phone Number [facility] [place] [address] * (ABNORMAL) Urinalysis, microscopic only (06/21/2024 4:12 AM WOOD PATTERNMAKER) WBC, ur 6-10(A) 0 - 5 /HPF RBC, ur 21-50(A) 0 - 2 /HPF [facility] Epithelial cells, squamous, ur 1-5 0 - 5 /HPF [facility] Epithelial cells, renal, ur 1-5(A) 0 - 0 /HPF [facility] Mucous, ur Present(A) [facility] Culture Reflex Comment Reflex conditions for urine culture (WBC >10) not met. [facility] Urine 06/21/2024 4:12 AM WOOD PATTERNMAKER 06/21/2024 4:30 AM WOOD PATTERNMAKER Jefferson Downing MD LAB URINE ORDERABLES Final Res ult Performing Organization Address City/[facility]/ZIP Co de Phone Number [facility] [place] [address] * Urine culture Urine (06/21/2024 4:12 AM WOOD PATTERNMAKER) Report Final Report: Less than 100,000 colonies/mL (clinically insignificant growth based on current clinical standards) Organism (CLINICALLY INSIGNIFICANT GROWTH [facility] Urine 06/21/2024 4:12 AM WOOD PATTERNMAKER 06/21/2024 9:25 AM WOOD PATTERNMAKER Narrative [facility] - 06/22/2024 11:28 AM WOOD PATTERNMAKER Testing performed by [facility] ([phone]) us Ivan Robles MD LAB MICROBIOLOGY - GENER AL ORDERABLES Final Result Performing Organization Address [facility] Co de Phone Number [facility] [place] [address] * ECG 12-LEAD (06/21/2024 2:28 AM WOOD PATTERNMAKER) Narrative [facility] - 06/21/2024 2:28 AM WOOD PATTERNMAKER Pritesh Demarco MD 06/21/2024 2:29 AM ECG 12 lead Date/Time: 06/21/2024 2:28 AM Performed by: Pritesh Demarco MD Authorized by: Jefferson Downing MD Rate: ECG rate: 63 ECG rate assessment: normal Rhythm: Rhythm: sinus rhythm Ectopy: Ectopy: none QRS: QRS axis: Normal QRS intervals: Normal Conduction: Conduction: abnormal Abnormal conduction: 1st degree ST segments: ST segments: Non-specific T waves: T waves: non-specific and inverted Inverted: V1 Other findings: Other findings: LVH Previous ECG: Previous ECG: Unavailable Interpretation: Interpretation: non-specific Recommended Follow-up: Recommended follow up: cardiac workup and further workup in the ED Procedure Note Pritesh Demarco MD - 06/21/2024 2:27 AM CST Procedure ECG 12 lead Date/Time: 06/21/2024 2:28 AM Performed by: Pritesh Demarco MD Authorized by: Jefferson Downing MD Rate: ECG rate: 63 ECG rate assessment: normal Rhythm: Rhythm: sinus rhythm Ectopy: Ectopy: none QRS: QRS axis: Normal QRS intervals: Normal Conduction: Conduction: abnormal Abnormal conduction: 1st degree ST segments: ST segments: Non-specific T waves: T waves: non-specific and inverted Inverted: V1 Other findings: Other findings: LVH Previous ECG: Previous ECG: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 risks and benefits of the procedure and thesedation options and risks were discussed with the patient. All questions were answered and informed consent wasobtained. The benefits, risks and alternatives of the procedureand sedation were discussed and informed consent wasobtained. All questions were answered. Please refer to the signed informed consent document in the medical record. Thescope was passed under direct vision. The Colonoscope was introduced through the anus and advanced to the thececum, identified by its appearance. The colonoscopy was performed without difficulty. The patient tolerated the procedure well. The quality of the bowel preparationwas good. The bowel preparation used was MoviPrep. Bowelprep was administered using a split dose. Findings: THE EXAM WAS COMPROMISED BY SPASTIC PARAPLEGIA , zero abdominal wall musculture,AND MULTIPLE IMPLANTED ABDOMINAL WALL DEVICES WHICHLIMITED THE EFFICACY OF HAND PRESSURE Melanosis, Diminutive right colon polyp jumbo bx removal.Left colonat area of discomfort NAD. Cecum poorly seen. The exam was otherwise without abnormality on direct and retroflexion views. Impression: - The sx seem c/w IBS with LLQ pain and constipation Recommendation: - Await pathology results. - Repeat colonoscopy in 5 years for surveillance given polyp discovery.Continue Linzess 72mcgs. Attending Participation: I personally performed the entire procedure. Electronically signed by Dr. Madi Melendez MD Madi Melendez M.D. 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 [address] [place] [address] [place] MEDICARE [employer] [facility] [place] [facility] [place] [facility] [place] [address] [place] [address] MEDICARE [address] [place] [id number] MEDICARE IDMS Advance Directives For more information, please contact: [phone] Documents on File Type Date Recorded Patient Pick Up Operator Expl anation ADVANCE DIRECTIVE 02/11/2021 10:49 AM DNR ADVANCE DIRECTIVE 12/27/2019 8:11 AM DNR ADVANCE DIRECTIVE 06/15/2013 12:00 AM POW ER OF ELEMENTARY READING TUTOR FINANCIAL/MEDICAL * Full Code (Latest Code Status on File) Date Activated Date Inactivated Comments 06/21/2024 4:44 AM 06/23/2024 7:41 PM * Full Code Date Activated Date Inactivated Comments 04/24/2024 7:12 PM 04/26/2024 8:33 PM * Full Code Date Activated Date Inactivated Comments 10/26/2023 10:50 PM 10/27/2023 7:11 PM * Full Code Date Activated Date Inactivated Comments 10/02/2023 8:22 PM 10/03/2023 5:05 PM * Full Code Date Activated Date Inactivated Comments 04/14/2023 10:17 AM 04/15/2023 11:03 PM Care Teams Cistern Room Working Supervisor Relationship Specialty Start Date End Date Armando Wolfe MD [address] [address] PCP - General Emergency Medicine 04/14/23
--- OUTSIDE RECORDS SUMMARY | 2024-08-11 12:50 | XMS_ITS | Encounter Summary ---
Author Organization [facility] Address 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
--- OUTSIDE RECORDS SUMMARY | 2024-08-11 12:50 | XMS_ITS | Encounter Summary ---
Author Organization [facility] Address [address] [place] [address] Care Team Providers Care Research/Program Director Name Role Phone Unavailable Primary Care Provider Unavailabl e Encounter Details Date Type Department Care Team (Late st Contact Info) Description 05/13/2019 Lab Requisition [facility] Laboratory Services [address] [place] [address] [facility], External Provider [address] [place] [address] Other fatigue Social History Tobacco Use Types Packs/Day Years Used Date Smoking Tobacco: Never Assessed Sex and Gender Information Value Date Recorded Sex Assigned at Not on file Legal Sex Male 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 Gender Identity Not on file Sexual Orientation Not on file documented as of this encounter Plan of Treatment Not on file documented as of this encounter Procedures Procedure Name Priority Date/Time Associated Diagnosis Comments CBC WITH DIFFERENTIAL Stat 05/13/2019 4:50 PM CHURCH HISTORY TEACHER Other fatigue BASIC METABOLIC PANEL Stat 05/13/2019 4:50 PM CHURCH HISTORY TEACHER Other fatigue documented in this encounter Results * (ABNORMAL) CBC WITH DIFFERENTIAL (05/13/2019 4:50 PM CHURCH HISTORY TEACHER) [facility] WBC 6.1 4.5 - 10.5 K/uL 05/13/2019 9:52 PM CHURCH HISTORY TEACHER [facility] LABORATORY SERVICES [facility] RBC 4.04(L) 4.50 - 5.40 M/uL 05/13/2019 9:52 PM CHURCH HISTORY TEACHER [facility] LABORATORY [facility] HEMOGLOBIN 12.1(L) 13.6 - 16.5 g/dL 05/13/2019 9:52 PM CHURCH HISTORY TEACHER [facility] LABORATORY [facility] HEMATOCRIT 37.1(L) 40.0 - 48.0 % 05/13/2019 9:52 PM [facility] LABORATORY [facility] MCV 91.7 82.0 - 99.0 fL 05/13/2019 9:52 PM [facility] LABORATORY [facility] MCH 30.0 27.8 - 34.5 pg 05/13/2019 9:52 PM [facility] LABORATORY [facility] MCHC 32.7 32.5 - 35.5 g/dL 05/13/2019 9:52 PM [facility] LABORATORY [facility] RDW 14.9(H) 11.5 - 14.5 % 05/13/2019 9:52 PM [facility] LABORATORY [facility] PLATELETS 162 160 - 420 K/uL 05/13/2019 9:52 PM [facility] [employer] [facility] MPV 9.8 8.7 - 12.7 fL 05/13/2019 9:52 PM [facility] LABORATORY [facility] NEUTROPHILS 70 45 - 70 % 05/13/2019 9:52 PM [facility] LABORATORY [facility] LYMPHOCYTES 16 16 - 45 % 05/13/2019 9:52 PM [facility] LABORATORY [facility] MONOCYTES 10 3 - 13 % 05/13/2019 9:52 PM [facility] LABORATORY [facility] EOSINOPHILS 4 0 - 7 % 05/13/2019 9:52 PM [facility] LABORATORY [facility] BASOPHILS 1 0 - 2 % 05/13/2019 9:52 PM [facility] [employer] [facility] NEUTROPHIL ABSOLUTE 4.20 1.90 - 7.00 K/uL 05/13/2019 9:52 PM [facility] [employer] [facility] LYMPHOCYTE ABSOLUTE 0.90 K/uL 05/13/2019 9:52 PM [facility] LABORATORY [facility] MONOCYTE ABSOLUTE 0.60 K/uL 05/13/2019 9:52 PM [facility] LABORATORY [facility] EOSINOPHIL ABSOLUTE 0.30 0.00 - 0.70 K/uL 05/13/2019 9:52 PM [facility] LABORATORY [facility] BASOPHILS ABSOLUTE 0.00 K/uL 05/13/2019 9:52 PM [facility] [employer] [facility] Blood BLOOD SPECIMEN / Unknown Collection / Unknown 05/13/2019 4:50 PM CHURCH HISTORY TEACHER 05/13/2019 9:42 PM CHURCH HISTORY TEACHER us External Provider [facility] HEMATOLOGY ORDERABLES Fin al Result [facility] [employer] [facility] LESTER# [id number] [place] [address] * (ABNORMAL) BASIC METABOLIC PANEL (05/13/2019 4:50 PM CHURCH HISTORY TEACHER) SODIUM 143 136 - 145 mmol/L 05/13/2019 10:11 PM [facility] [employer] [facility] POTASSIUM 4.2 3.4 - 5.1 mmol/L 05/13/2019 10:11 PM [facility] [employer] [facility] CHLORIDE 104 98 - 107 mmol/L 05/13/2019 10:11 PM [facility] CO2 27 22 - 29 mmol/L 05/13/2019 10:11 PM [facility] CALCIUM 8.5(L) 8.6 - 10.4 mg/dL 05/13/2019 10:11 PM [facility] BUN 24(H) 6 - 20 mg/dL 05/13/2019 10:11 PM [facility] CREATININE 1.09 0.70 - 1.20 mg/dL 05/13/2019 10:11 PM [facility] Comment:The GFR result is no t clinically significant on patients <18 or >70 years of age. GLUCOSE 96 74 - 99 mg/dL 05/13/2019 10:11 PM [facility] [employer] [facility] GFR >60 mL/min/1.7 3 sq meter 05/13/2019 10:11 PM [facility] [employer] [facility] Comment: eGFR has not been validated for use in the elderly (> 70 years of age), women, patients with serious co-morbid conditions, or persons with extremes of body size or muscle mass and should also be interpreted with caution in patients with acute kidney failure, dialysis dependent patients, patients reporting exceptional dietary intake (e.g. vegetarian diet, high protein diets, creatine supplementation), and patients with severe liver disease. Based on National Kidney Disease Education Program If patient is , please refer to the GFR result. GFR, >60 mL/min/1.7 3 sq meter 05/13/2019 10:11 PM CHURCH HISTORY TEACHER [facility] LABORATORY SERVICES [facility] ANION GAP 12 8 - 16 mmol/L 05/13/2019 10:11 PM CHURCH HISTORY TEACHER [facility] LABORATORY [facility] Blood BLOOD SPECIMEN / Unknown Collection / Unknown 05/13/2019 4:50 PM CHURCH HISTORY TEACHER 05/13/2019 9:42 PM CHURCH HISTORY TEACHER External Provider [facility] CHEMISTRY ORDERABLES Johanne l Result [facility] LABORATORY [facility] CLIA# [id number] [place] [address] documented in this encounter Visit Diagnoses Diagnosis Other fatigue documented in this encounter
--- OUTSIDE RECORDS SUMMARY | 2024-08-11 12:50 | XMS_ITS | Encounter Summary ---
Author Organization [employer] Address 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 Gender Identity Not on file Sexual Orientation Not on file documented as of this encounter Plan of Treatment Not on file documented as of this encounter Procedures Procedure Name Priority Date/Time Associated Diagnosis Comments CBC WITH DIFFERENTIAL Routine 04/05/2006 5:15 AM CDT CBC WITH DIFFERENTIAL Routine 04/05/2006 5:15 AM CDT C-REACTIVE PROTEIN Routine 04/05/2006 5: 15 AM CDT VANCOMYCIN LEVEL TROUGH Routine 03/31/2006 11:15 AM CDT CBC WITH DIFFERENTIAL Routine 03/29/2006 5:15 AM CDT CBC WITH DIFFERENTIAL Routine 03/29/2006 5:15 AM CDT C-REACTIVE PROTEIN Routine 03/29/2006 5: 15 AM CDT COMPREHENSIVE METABOLIC PANEL Routine 03/29/2006 5:15 AM CDT CBC WITH DIFFERENTIAL Routine 03/24/2006 12:10 PM CDT CBC WITH DIFFERENTIAL Routine 03/24/2006 12:10 PM CDT C-REACTIVE PROTEIN Routine 03/24/2006 12 :10 PM CDT VANCOMYCIN LEVEL TROUGH Routine 03/24/2006 12:10 PM CDT COMPREHENSIVE METABOLIC PANEL Routine 03/24/2006 12:10 PM CDT BASIC METABOLIC PANEL Routine 03/24/2006 4:30 AM CDT CBC WITH DIFFERENTIAL Routine 03/23/2006 11:30 AM CDT CBC WITH DIFFERENTIAL Routine 03/23/2006 11:30 AM CDT C-REACTIVE PROTEIN Routine 03/23/2006 11 :30 AM CDT VANCOMYCIN LEVEL TROUGH Routine 03/23/2006 11:30 AM CDT COMPREHENSIVE METABOLIC PANEL Routine 03/23/2006 11:30 AM CDT BASIC METABOLIC PANEL Routine 03/23/2006 4:40 AM CDT URINALYSIS W/REFLEX MICROSCOPIC Routine 03/22/2006 8:30 PM CDT BASIC METABOLIC PANEL Routine 03/22/2006 4:55 AM CDT BASIC METABOLIC PANEL Routine 03/21/2006 4:35 AM CDT CBC WITH DIFFERENTIAL Routine 03/20/2006 7:19 AM CDT CBC WITH DIFFERENTIAL Routine 03/20/2006 7:19 AM CDT BASIC METABOLIC PANEL Routine 03/20/2006 7:19 AM CDT URINALYSIS W/REFLEX MICROSCOPIC Routine 03/19/2006 9:01 PM CDT documented in this encounter Results * (ABNORMAL) CBC WITH DIFFERENTIAL (04/05/2006 5:15 AM CDT) NEUTROPHILS 52 45 - 70 % INTERFAC E SYSTEM LYMPHOCYTES 25 16 - 45 % INTERFAC E SYSTEM MONOCYTES 17(H) 3 - 13 % INTERFACE SYSTEM EOSINOPHILS 5 0 - 7 % INTERFAC E SYSTEM BASOPHILS 1 0 - 2 % INTERFACE SYSTEM NEUTROPHIL ABSOLUTE 2.38 1.90 - 7.00 K/uL INTERFACE SYSTEM LYMPHOCYTE ABSOLUTE 1.13 0.70 - 4.50 K/uL INTERFACE SYSTEM MONOCYTE ABSOLUTE 0.78 0.10 - 1.30 K/uL INTERFACE SYSTEM EOSINOPHIL ABSOLUTE 0.21 0.00 - 0.70 K/uL INTERFACE SYSTEM BASOPHILS ABSOLUTE 0.04 0.00 - 0.20 K/uL INTERFACE SYSTEM 04/05/2006 5:15 AM CDT Shewangizaw Zaid HEMATOLOGY ORDERABLES Final Re sult INTERFACE SYSTEM Refer to clinic/hospital department * (ABNORMAL) CBC WITH DIFFERENTIAL (04/05/2006 5:15 AM CDT) WBC 4.5 4.0 - 9.8 K/uL INTERFACE SYSTEM RBC 3.71(L) 4.50 - 5.40 M/uL INTERFACE SYSTEM HEMOGLOBIN 10.7(L) 13.6 - 16.5 g/dL INTERFACE SYSTEM HEMATOCRIT 33.3(L) 40.0 - 48.0 % INTERFACE SYSTEM MCV 89.8 82.0 - 99.0 fL INTERFACE SYSTEM MCH 28.8 27.2 - 32.6 pg INTERFACE SYSTEM MCHC 32.1 31.5 - 35.5 % INTERFACE SYSTEM RDW 13.9 11.5 - 14.5 % INTERFACE SYSTEM RDW-STDEV 45.8 37.1 - 48.7 fL INTERFACE SYSTEM PLATELETS 212 140 - 350 K/uL INTERFACE SYSTEM MPV 9.9 9.3 - 12.4 fL INTERFACE SYSTEM 04/05/2006 5:15 AM CDT Shewangiz Zaid HEMATOLOGY ORDERABLES Final Re sult Performing Organization Address [facility] Phone Number INTERFACE SYSTEM Refer to clinic/hospital department * C-REACTIVE PROTEIN (04/05/2006 5:15 AM CDT) Pathologist [facility] CRP 0.2 0.0 - 0.8 mg/dL INTERFACE SYSTEM 04/05/2006 5:15 AM CDT [facility] CHEMISTRY ORDERABLES Final Res ult Performing Organization Address [facility] Phone Number INTERFACE SYSTEM Refer to clinic/hospital department * (ABNORMAL) VANCOMYCIN LEVEL TROUGH (03/31/2006 11:15 AM CDT) Pathologist [facility] VANCOMYCIN, TROUGH 18.3(AA) 5.0 - 15.0 ug/mL INTERFACE SYSTEM Comment: Vancomycin Trough Toxic Level= >15.0 ug/mL Results called to Amy_ at 03/31/2006 12:05 PM and read back verified. 03/31/2006 11:1 5 AM CDT Sushil Arroyo MD CHEMISTRY ORDERABLES Final R esult Performing Organization Address [facility] Phone Number INTERFACE SYSTEM Refer to clinic/hospital department * (ABNORMAL) CBC WITH DIFFERENTIAL (03/29/2006 5:15 AM CDT) Pathologist [facility] NEUTROPHILS 64 45 - 70 % INTERFAC E SYSTEM LYMPHOCYTES 18 16 - 45 % INTERFAC E SYSTEM MONOCYTES 14(H) 3 - 13 % INTERFACE SYSTEM EOSINOPHILS 4 0 - 7 % INTERFAC E SYSTEM BASOPHILS 1 0 - 2 % INTERFACE SYSTEM NEUTROPHIL ABSOLUTE 2.83 1.90 - 7.00 K/uL INTERFACE SYSTEM LYMPHOCYTE ABSOLUTE 0.78 0.70 - 4.50 K/uL INTERFACE SYSTEM MONOCYTE ABSOLUTE 0.61 0.10 - 1.30 K/uL INTERFACE SYSTEM EOSINOPHIL ABSOLUTE 0.17 0.00 - 0.70 K/uL INTERFACE SYSTEM BASOPHILS ABSOLUTE 0.05 0.00 - 0.20 K/uL INTERFACE SYSTEM 03/29/2006 5:15 AM CDT us Keenan Mandujano MD HEMATOLOGY ORDERABLES Final Res ult Performing Organization Address [facility] Phone Number INTERFACE SYSTEM Refer to clinic/hospital department * (ABNORMAL) CBC WITH DIFFERENTIAL (03/29/2006 5:15 AM CDT) WBC 4.4 4.0 - 9.8 K/uL INTERFACE SYSTEM RBC 3.67(L) 4.50 - 5.40 M/uL INTERFACE SYSTEM HEMOGLOBIN 10.5(L) 13.6 - 16.5 g/dL INTERFACE SYSTEM HEMATOCRIT 32.9(L) 40.0 - 48.0 % INTERFACE SYSTEM MCV 89.6 82.0 - 99.0 fL INTERFACE SYSTEM MCH 28.6 27.2 - 32.6 pg INTERFACE SYSTEM MCHC 31.9 31.5 - 35.5 % INTERFACE SYSTEM RDW 13.7 11.5 - 14.5 % INTERFACE SYSTEM RDW-STDEV 44.9 37.1 - 48.7 fL INTERFACE SYSTEM PLATELETS 237 140 - 350 K/uL INTERFACE SYSTEM MPV 9.9 9.3 - 12.4 fL INTERFACE SYSTEM 03/29/2006 5:15 AM CDT us Keenan Mandujano MD HEMATOLOGY ORDERABLES Final Res ult Performing Organization Address [facility] Number INTERFACE SYSTEM Refer to clinic/hospital department * C-REACTIVE PROTEIN (03/29/2006 5:15 AM CDT) CRP 0.3 0.0 - 0.8 mg/dL INTERFACE SYSTEM 03/29/2006 5:1 5 AM CDT us Keenan Mandujano MD CHEMISTRY ORDERABLES Final Resu lt Performing Organization Address [facility] Phone Number INTERFACE SYSTEM Refer to clinic/hospital department * (ABNORMAL) COMPREHENSIVE METABOLIC PANEL (03/29/2006 5:15 AM CDT) GLUCOSE 93 65 - 99 mg/dL INTERFACE SYSTEM CREATININE 0.7 0.5 - 1.3 mg/dL INTERFACE SYSTEM CALCIUM 9.1 8.4 - 10.2 mg/dL INTERFACE SYSTEM ALKALINE PHOSPHATASE 70 40 - 129 U/L INTERFACE SYSTEM AST 18 12 - 38 U/L INTERFACE SYSTEM ALT 25 0 - 41 U/L INTERFACE SYSTEM TOTAL PROTEIN 5.9(L) 6.3 - 8.6 g/dL INTERFACE SYSTEM ALBUMIN 3.6 3.4 - 4.8 g/dL INTERFACE SYSTEM BILIRUBIN TOTAL 0.4 0.2 - 1.0 mg/dL INTERFACE SYSTEM BUN 8 6 - 20 mg/dL INTERFACE SYSTEM SODIUM 140 135 - 145 mmol/L INTERFACE SYSTEM POTASSIUM 3.9 3.5 - 4.9 mmol/L INTERFACE SYSTEM CHLORIDE 101 96 - 108 mmol/L INTERFACE SYSTEM CO2 26 22 - 30 mmol/L INTERFACE SYSTEM 03/29/2006 5:15 AM CDT Keenan Mandujano MD CHEMISTRY ORDERABLES Final Resu lt Performing Organization Address [facility] Phone Number INTERFACE SYSTEM Refer to clinic/hospital department * CBC WITH DIFFERENTIAL (03/24/2006 12:10 PM CDT) NEUTROPHILS 56 45 - 70 % INTERFAC E SYSTEM LYMPHOCYTES 27 16 - 45 % INTERFAC E SYSTEM MONOCYTES 13 3 - 13 % INTERFACE SYSTEM EOSINOPHILS 3 0 - 7 % INTERFAC E SYSTEM BASOPHILS 1 0 - 2 % INTERFACE SYSTEM NEUTROPHIL ABSOLUTE 2.78 1.90 - 7.00 K/uL INTERFACE SYSTEM LYMPHOCYTE ABSOLUTE 1.33 0.70 - 4.50 K/uL INTERFACE SYSTEM MONOCYTE ABSOLUTE 0.63 0.10 - 1.30 K/uL INTERFACE SYSTEM EOSINOPHIL ABSOLUTE 0.15 0.00 - 0.70 K/uL INTERFACE SYSTEM BASOPHILS ABSOLUTE 0.06 0.00 - 0.20 K/uL INTERFACE SYSTEM 03/24/2006 12:1 0 PM CDT us Tho Gradyu HEMATOLOGY ORDERABLES Final Re sult Performing Organization Address [facility] Phone Number INTERFACE SYSTEM Refer to clinic/hospital department * (ABNORMAL) CBC WITH DIFFERENTIAL (03/24/2006 12:10 PM CDT) WBC 5.0 4.0 - 9.8 K/uL INTERFACE SYSTEM RBC 3.48(L) 4.50 - 5.40 M/uL INTERFACE SYSTEM HEMOGLOBIN 10.3(L) 13.6 - 16.5 g/dL INTERFACE SYSTEM HEMATOCRIT 31.5(L) 40.0 - 48.0 % INTERFACE SYSTEM MCV 90.5 82.0 - 99.0 fL INTERFACE SYSTEM MCH 29.6 27.2 - 32.6 pg INTERFACE SYSTEM MCHC 32.7 31.5 - 35.5 % INTERFACE SYSTEM RDW 13.8 11.5 - 14.5 % INTERFACE SYSTEM RDW-STDEV 45.8 37.1 - 48.7 fL INTERFACE SYSTEM PLATELETS 362(H) 140 - 350 K/uL INTERFACE SYSTEM MPV 9.4 9.3 - 12.4 fL INTERFACE SYSTEM 03/24/2006 12:1 0 PM CDT [employer] Zaid HEMATOLOGY ORDERABLES Final Re sult Performing Organization Address [facility] Phone Number INTERFACE SYSTEM Refer to clinic/hospital department * VANCOMYCIN LEVEL TROUGH (03/24/2006 12:10 PM CDT) VANCOMYCIN, TROUGH 11.3 5.0 - 15.0 ug/mL INTERFACE SYSTEM Comment: Vancomycin Trough Toxic Level= >15.0 ug/mL 03/24/2006 12:1 0 PM CDT Prylos Zaid CHEMISTRY ORDERABLES Final Res ult Performing Organization Address [facility] Phone Number INTERFACE SYSTEM Refer to clinic/hospital department * C-REACTIVE PROTEIN (03/24/2006 12:10 PM CDT) CRP 0.6 0.0 - 0.8 mg/dL INTERFACE SYSTEM 03/24/2006 12:1 0 PM CDT [facility] Zaid CHEMISTRY ORDERABLES Final Res ult Performing Organization Address [facility] Phone Number INTERFACE SYSTEM Refer to clinic/hospital department * (ABNORMAL) COMPREHENSIVE METABOLIC PANEL (03/24/2006 12:10 PM CDT) GLUCOSE 106(H) 65 - 99 mg/dL INTERFACE SYSTEM CREATININE 0.6 0.5 - 1.3 mg/dL INTERFACE SYSTEM CALCIUM 8.7 8.4 - 10.2 mg/dL INTERFACE SYSTEM ALKALINE PHOSPHATASE 69 40 - 129 U/L INTERFACE SYSTEM AST 45(H) 12 - 38 U/L INTERFACE SYSTEM ALT 58(H) 0 - 41 U/L INTERFACE SYSTEM TOTAL PROTEIN 5.8(L) 6.3 - 8.6 g/dL INTERFACE SYSTEM ALBUMIN 3.7 3.4 - 4.8 g/dL INTERFACE SYSTEM BILIRUBIN TOTAL 0.3 0.2 - 1.0 mg/dL INTERFACE SYSTEM BUN 10 6 - 20 mg/dL INTERFACE SYSTEM SODIUM 137 135 - 145 mmol/L INTERFACE SYSTEM POTASSIUM 3.5 3.5 - 4.9 mmol/L INTERFACE SYSTEM CHLORIDE 100 96 - 108 mmol/L INTERFACE SYSTEM CO2 28 22 - 30 mmol/L INTERFACE SYSTEM 03/24/2006 12:1 0 PM CDT us Tho Mar CHEMISTRY ORDERABLES Final Res ult Performing Organization Address [facility] Co de Phone Number INTERFACE SYSTEM Refer to clinic/hospital department * (ABNORMAL) BASIC METABOLIC PANEL (03/24/2006 4:30 AM CDT) GLUCOSE 104(H) 65 - 99 mg/dL INTERFACE SYSTEM CREATININE 0.6 0.5 - 1.3 mg/dL INTERFACE SYSTEM CALCIUM 8.6 8.4 - 10.2 mg/dL INTERFACE SYSTEM BUN 11 6 - 20 mg/dL INTERFACE SYSTEM SODIUM 138 135 - 145 mmol/L INTERFACE SYSTEM POTASSIUM 3.4(L) 3.5 - 4.9 mmol/L INTERFACE SYSTEM CHLORIDE 101 96 - 108 mmol/L INTERFACE SYSTEM CO2 28 22 - 30 mmol/L INTERFACE SYSTEM 03/24/2006 4:30 AM CDT us Sushil Arroyo MD CHEMISTRY ORDERABLES Final R esult INTERFACE SYSTEM Refer to clinic/hospital department * (ABNORMAL) CBC WITH DIFFERENTIAL (03/23/2006 11:30 AM CDT) NEUTROPHILS 62 45 - 70 % INTERFAC E SYSTEM LYMPHOCYTES 20 16 - 45 % INTERFAC E SYSTEM MONOCYTES 15(H) 3 - 13 % INTERFACE SYSTEM EOSINOPHILS 3 0 - 7 % INTERFAC E SYSTEM BASOPHILS 1 0 - 2 % INTERFACE SYSTEM NEUTROPHIL ABSOLUTE 3.79 1.90 - 7.00 K/uL INTERFACE SYSTEM LYMPHOCYTE ABSOLUTE 1.20 0.70 - 4.50 K/uL INTERFACE SYSTEM MONOCYTE ABSOLUTE 0.89 0.10 - 1.30 K/uL INTERFACE SYSTEM EOSINOPHIL ABSOLUTE 0.15 0.00 - 0.70 K/uL INTERFACE SYSTEM BASOPHILS ABSOLUTE 0.04 0.00 - 0.20 K/uL INTERFACE SYSTEM 03/23/2006 11:3 0 AM CDT [facility] HEMATOLOGY ORDERABLES Final Re sult Performing Organization Address [facility] de Phone Number INTERFACE SYSTEM Refer to clinic/hospital department * (ABNORMAL) CBC WITH DIFFERENTIAL (03/23/2006 11:30 AM CDT) Pathologist [facility] WBC 6.1 4.0 - 9.8 K/uL INTERFACE SYSTEM RBC 3.65(L) 4.50 - 5.40 M/uL INTERFACE SYSTEM HEMOGLOBIN 10.6(L) 13.6 - 16.5 g/dL INTERFACE SYSTEM HEMATOCRIT 32.7(L) 40.0 - 48.0 % INTERFACE SYSTEM MCV 89.6 82.0 - 99.0 fL INTERFACE SYSTEM MCH 29.0 27.2 - 32.6 pg INTERFACE SYSTEM MCHC 32.4 31.5 - 35.5 % INTERFACE SYSTEM RDW 13.7 11.5 - 14.5 % INTERFACE SYSTEM RDW-STDEV 45.2 37.1 - 48.7 fL INTERFACE SYSTEM PLATELETS 422(H) 140 - 350 K/uL INTERFACE SYSTEM MPV 9.5 9.3 - 12.4 fL INTERFACE SYSTEM 03/23/2006 11:3 0 AM CDT [facility] HEMATOLOGY ORDERABLES Final Re sult Performing Organization Address [facility] de Phone Number INTERFACE SYSTEM Refer to clinic/hospital department * VANCOMYCIN LEVEL TROUGH (03/23/2006 11:30 AM CDT) VANCOMYCIN, TROUGH 6.2 5.0 - 15.0 ug/mL INTERFACE SYSTEM Comment: Vancomycin Trough Toxic Level= >15.0 ug/mL 03/23/2006 11:3 0 AM CDT [facility] Zaid CHEMISTRY ORDERABLES Final Res ult Performing Organization Address [facility] Phone Number INTERFACE SYSTEM Refer to clinic/hospital department * (ABNORMAL) C-REACTIVE PROTEIN (03/23/2006 11:30 AM CDT) CRP 1.0(H) 0.0 - 0.8 mg/dL INTERFACE SYSTEM 03/23/2006 11:3 0 AM CDT [facility] CHEMISTRY ORDERABLES Final Res ult Performing Organization Address [facility] Phone Number INTERFACE SYSTEM Refer to clinic/hospital department * (ABNORMAL) COMPREHENSIVE METABOLIC PANEL (03/23/2006 11:30 AM CDT) GLUCOSE 120(H) 65 - 99 mg/dL INTERFACE SYSTEM CREATININE 0.6 0.5 - 1.3 mg/dL INTERFACE SYSTEM CALCIUM 8.9 8.4 - 10.2 mg/dL INTERFACE SYSTEM ALKALINE PHOSPHATASE 71 40 - 129 U/L INTERFACE SYSTEM AST 60(H) 12 - 38 U/L INTERFACE SYSTEM ALT 55(H) 0 - 41 U/L INTERFACE SYSTEM TOTAL PROTEIN 6.0(L) 6.3 - 8.6 g/dL INTERFACE SYSTEM ALBUMIN 3.6 3.4 - 4.8 g/dL INTERFACE SYSTEM BILIRUBIN TOTAL 0.3 0.2 - 1.0 mg/dL INTERFACE SYSTEM BUN 7 6 - 20 mg/dL INTERFACE SYSTEM SODIUM 140 135 - 145 mmol/L INTERFACE SYSTEM POTASSIUM 3.8 3.5 - 4.9 mmol/L INTERFACE SYSTEM CHLORIDE 102 96 - 108 mmol/L INTERFACE SYSTEM CO2 27 22 - 30 mmol/L INTERFACE SYSTEM 03/23/2006 11:3 0 AM CDT [facility] CHEMISTRY ORDERABLES Final Res ult Performing Organization Address [facility] Phone Number INTERFACE SYSTEM Refer to clinic/hospital department * (ABNORMAL) BASIC METABOLIC PANEL (03/23/2006 4:40 AM CDT) GLUCOSE 105(H) 65 - 99 mg/dL INTERFACE SYSTEM CREATININE 0.6 0.5 - 1.3 mg/dL INTERFACE SYSTEM CALCIUM 8.7 8.4 - 10.2 mg/dL INTERFACE SYSTEM BUN 8 6 - 20 mg/dL INTERFACE SYSTEM SODIUM 139 135 - 145 mmol/L INTERFACE SYSTEM POTASSIUM 3.5 3.5 - 4.9 mmol/L INTERFACE SYSTEM CHLORIDE 101 96 - 108 mmol/L INTERFACE SYSTEM CO2 28 22 - 30 mmol/L INTERFACE SYSTEM 03/23/2006 4:40 AM CDT Sushil Arroyo MD CHEMISTRY ORDERABLES Final R esult Performing Organization Address [facility] Phone Number INTERFACE SYSTEM Refer to clinic/hospital department * (ABNORMAL) URINALYSIS (03/22/2006 8:30 PM CDT) COLOR UA Yellow INTERFACE SYSTEM CLARITY UA Clear Clear INTERFACE SYSTEM SPECIFIC GRAVITY UA 1.010 1.001 - 1.035 INTERFACE SYSTEM PH UA 6.5 5.0 - 8.0 INTERFACE SYSTEM LEUKOCYTE ESTERASE UA Negative Negative INTERFACE SYSTEM NITRITE UA Negative Negative INTERFACE SYSTEM PROTEIN UA Trace(A) Negative INTERFACE SYSTEM GLUCOSE UA Negative Negative INTERFACE SYSTEM KETONES UA Negative Negative INTERFACE SYSTEM UROBILINOGEN UA <1 <=1 mg/dL INTE RFACE SYSTEM BILIRUBIN UA Negative Negative INTERFA CE SYSTEM BLOOD UA Negative Negative INTERFACE SYSTEM WBC UA 1 0 - 3 /HPF INTERFACE SYSTEM RBC UA <1 0 - 3 /HPF INTERFACE SYSTEM 03/22/2006 8:30 PM CDT [facility] Z[facility] URINE ORDERABLES Final Result Performing Organization Address [facility] Phone Number INTERFACE SYSTEM Refer to clinic/hospital department * (ABNORMAL) BASIC METABOLIC PANEL (03/22/2006 4:55 AM CDT) GLUCOSE 102(H) 65 - 99 mg/dL INTERFACE SYSTEM CREATININE 0.5 0.5 - 1.3 mg/dL INTERFACE SYSTEM CALCIUM 8.6 8.4 - 10.2 mg/dL INTERFACE SYSTEM BUN 8 6 - 20 mg/dL INTERFACE SYSTEM SODIUM 137 135 - 145 mmol/L INTERFACE SYSTEM POTASSIUM 3.4(L) 3.5 - 4.9 mmol/L INTERFACE SYSTEM CHLORIDE 101 96 - 108 mmol/L INTERFACE SYSTEM CO2 25 22 - 30 mmol/L INTERFACE SYSTEM 03/22/2006 4:55 AM CDT Sushil Arroyo MD CHEMISTRY ORDERABLES Final [facility] Performing Organization Address [facility] de Phone Number INTERFACE SYSTEM Refer to clinic/hospital department * (ABNORMAL) BASIC METABOLIC PANEL (03/21/2006 4:35 AM CDT) GLUCOSE 102(H) 65 - 99 mg/dL INTERFACE SYSTEM CREATININE 0.5 0.5 - 1.3 mg/dL INTERFACE SYSTEM CALCIUM 8.8 8.4 - 10.2 mg/dL INTERFACE SYSTEM BUN 7 6 - 20 mg/dL INTERFACE SYSTEM SODIUM 136 135 - 145 mmol/L INTERFACE SYSTEM POTASSIUM 3.4(L) 3.5 - 4.9 mmol/L INTERFACE SYSTEM CHLORIDE 99 96 - 108 mmol/L INTERFACE SYSTEM CO2 24 22 - 30 mmol/L INTERFACE SYSTEM 03/21/2006 4:35 AM CDT Sushil Arroyo MD CHEMISTRY ORDERABLES Final R esult Performing Organization Address [facility] Co de Phone Number INTERFACE SYSTEM Refer to clinic/hospital department * CBC WITH DIFFERENTIAL (03/20/2006 7:19 AM CDT) NEUTROPHILS 65 45 - 70 % INTERFAC E SYSTEM LYMPHOCYTES 19 16 - 45 % INTERFAC E SYSTEM MONOCYTES 11 3 - 13 % INTERFACE SYSTEM EOSINOPHILS 4 0 - 7 % INTERFAC E SYSTEM BASOPHILS 1 0 - 2 % INTERFACE SYSTEM NEUTROPHIL ABSOLUTE 3.85 1.90 - 7.00 K/uL INTERFACE SYSTEM LYMPHOCYTE ABSOLUTE 1.11 0.70 - 4.50 K/uL INTERFACE SYSTEM MONOCYTE ABSOLUTE 0.65 0.10 - 1.30 K/uL INTERFACE SYSTEM EOSINOPHIL ABSOLUTE 0.24 0.00 - 0.70 K/uL INTERFACE SYSTEM BASOPHILS ABSOLUTE 0.06 0.00 - 0.20 K/uL INTERFACE SYSTEM 03/20/2006 7:19 AM CDT Sushil Arroyo MD HEMATOLOGY ORDERABLES Final Result Performing Organization Address [facility] Phone Number INTERFACE SYSTEM Refer to clinic/hospital department * (ABNORMAL) CBC WITH DIFFERENTIAL (03/20/2006 7:19 AM CDT) WBC 5.9 4.0 - 9.8 K/uL INTERFACE SYSTEM RBC 3.59(L) 4.50 - 5.40 M/uL INTERFACE SYSTEM HEMOGLOBIN 10.4(L) 13.6 - 16.5 g/dL INTERFACE SYSTEM HEMATOCRIT 31.3(L) 40.0 - 48.0 % INTERFACE SYSTEM MCV 87.2 82.0 - 99.0 fL INTERFACE SYSTEM MCH 29.0 27.2 - 32.6 pg INTERFACE SYSTEM MCHC 33.2 31.5 - 35.5 % INTERFACE SYSTEM RDW 13.3 11.5 - 14.5 % INTERFACE SYSTEM RDW-STDEV 43.0 37.1 - 48.7 fL INTERFACE SYSTEM PLATELETS 441(H) 140 - 350 K/uL INTERFACE SYSTEM MPV 9.5 9.3 - 12.4 fL INTERFACE SYSTEM 03/20/2006 7:19 AM CDT Sushil Arroyo MD HEMATOLOGY ORDERABLES Final Result Performing Organization Address [facility] Phone Number INTERFACE SYSTEM Refer to clinic/hospital department * (ABNORMAL) BASIC METABOLIC PANEL (03/20/2006 7:19 AM CDT) GLUCOSE 104(H) 65 - 99 mg/dL INTERFACE SYSTEM CREATININE 0.5 0.5 - 1.3 mg/dL INTERFACE SYSTEM CALCIUM 8.4 8.4 - 10.2 mg/dL INTERFACE SYSTEM BUN 4(L) 6 - 20 mg/dL INTERFACE SYSTEM SODIUM 135 135 - 145 mmol/L INTERFACE SYSTEM POTASSIUM 3.0(L) 3.5 - 4.9 mmol/L INTERFACE SYSTEM CHLORIDE 99 96 - 108 mmol/L INTERFACE SYSTEM CO2 24 22 - 30 mmol/L INTERFACE SYSTEM 03/20/2006 7:19 AM CDT Sushil Arroyo MD CHEMISTRY ORDERABLES Final R esult Performing Organization Address [facility] Phone Number INTERFACE SYSTEM Refer to clinic/hospital department * (ABNORMAL) URINALYSIS (03/19/2006 9:01 PM CDT) COLOR UA Yellow INTERFACE SYSTEM CLARITY UA Clear Clear INTERFACE SYSTEM SPECIFIC GRAVITY UA 1.015 1.001 - 1.035 INTERFACE SYSTEM PH UA 7.0 5.0 - 8.0 INTERFACE SYSTEM LEUKOCYTE ESTERASE UA Trace(A) Negative INTERFACE SYSTEM NITRITE UA Negative Negative INTERFACE SYSTEM PROTEIN UA Negative Negative INTERFACE SYSTEM GLUCOSE UA Negative Negative INTERFACE SYSTEM KETONES UA Negative Negative INTERFACE SYSTEM UROBILINOGEN UA <1 <1 mg/dL INTE RFACE SYSTEM BILIRUBIN UA Negative Negative INTERFA CE SYSTEM BLOOD UA Trace(A) Negative INTERFACE SYSTEM WBC UA 7(H) 0 - 3 /HPF INTERFACE SYSTEM RBC UA 20(H) 0 - 3 /HPF INTERFACE SYSTEM HYALINE CAST 2 0 - 2 /LPF INTERF DEANDRE SYSTEM YEAST Many(A) None Seen /HPF INTERFACE SYSTEM 03/19/2006 9:01 PM CDT Sushil Arroyo MD URINE ORDERABLES Final Resul t Performing Organization Address [facility] Phone Number INTERFACE SYSTEM Refer to clinic/hospital department documented in this encounter Visit Diagnoses Diagnosis Other specified rehabilitation procedure(V57.89)- Primary Other specified rehabilitation procedure documented in this encounter
--- OUTSIDE RECORDS SUMMARY | 2024-08-11 12:50 | XMS_ITS | Encounter Summary ---
Author Organization [employer] Address [address] [place] [address] Care Team Providers Care Search Engine Optimizer Name Role Phone Unavailable Primary Care Provider Unavailabl e Encounter Details Date Type Department Care Team (Late st Contact Info) Description 01/13/2006 Outpatient Historical [facility] Support Serv. (Adt Card[facility]) [address] 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
--- OUTSIDE RECORDS SUMMARY | 2024-08-11 12:50 | XMS_ITS | Encounter Summary ---
Author Organization [facility] Address [address] [place] [address] Care Team Providers Care Folder Machine Name Role Phone Unavailable Primary Care Provider Unavailabl e Encounter Details Date Type Department Care Team (Late st Contact Info) Description 03/14/2006 Outpatient Historical [facility] Adult Hospitalists [facility] [address] [place] [address] Devan Agrawal MD [address] [facility] 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
--- OUTSIDE RECORDS SUMMARY | 2024-08-11 12:50 | XMS_ITS | Encounter Summary ---
Author Organization [facility] Address [address] [place] [address] Care Team Providers Care Carpenter Apprentice Name Role Phone Unavailable Primary Care Provider Unavailabl e Encounter Details Date Type Department Care Team (Late st Contact Info) Description 03/10/[address] [facility] Adult Hospitalists [address] [id number] Rita Esqueda MD [address] [id number], [place] [address] Social History Tobacco Use Types Packs/Day Years Used Date Smoking Tobacco: Never Assessed Sex and Gender Information Value Date Recorded Sex Assigned at Not on file Legal Sex Male 3:46 AM [employer] Gender Identity Not on file Sexual Orientation Not on file documented as of this encounter Plan of Treatment Not on file documented as of this encounter Visit Diagnoses Not on filedocumented in this encounter
--- OUTSIDE RECORDS SUMMARY | 2024-08-11 12:50 | XMS_ITS | Encounter Summary ---
Author Organization [employer] + Address [address] [place] [address] Care Team Providers Care Web Services Manager Name Role Phone Unavailable Primary Care Provider Unavailabl e Encounter Details Date Type Department Care Team (Latest Contact Info) Description 01/13/2006 Inpatient Historical HIS [place] [id number] [place] [address] Other Specified Rehabilitation Procedure (Primary Dx) Social History Tobacco Use Types Packs/Day Years Used Date Smoking Tobacco: Never Assessed Sex and Gender Information Value Date Recorded Sex Assigned at Not on file Legal Sex Male 3:46 AM [employer] Gender Identity Not on file Sexual Orientation Not on file documented as of this encounter Plan of Treatment Not on file documented as of this encounter Procedures Procedure Name Priority Date/Time Associated Diagnosis Comments BLOOD GAS ARTERIAL Routine 03/14/2006 9: 41 PM CDT CBC WITH DIFFERENTIAL Routine 03/14/2006 4:37 AM CDT CBC WITH DIFFERENTIAL Routine 03/14/2006 4:37 AM CDT C-REACTIVE PROTEIN Routine 03/14/2006 4: 37 AM CDT MAGNESIUM LEVEL Routine 03/14/2006 4:37 AM CDT COMPREHENSIVE METABOLIC PANEL Routine 03/14/2006 4:37 AM CDT VANCOMYCIN LEVEL TROUGH Routine 03/13/2006 1:02 PM CDT BASIC METABOLIC PANEL Routine 03/13/2006 5:00 AM CDT SPINAL FLUID CELL COUNT W/REFLEXIVE DIFF Routine 03/12/2006 3:10 PM CDT SPINAL FLUID CELL COUNT W/REFLEXIVE DIFF Routine 03/12/2006 3:10 PM CDT TOTAL PROTEIN, CSF Routine 03/12/2006 3: 10 PM CDT C-REACTIVE PROTEIN, CSF Routine 03/12/2006 3:10 PM CDT GLUCOSE, CSF Routine 03/12/2006 3:10 PM CDT CBC WITH DIFFERENTIAL Routine 03/12/2006 5:05 AM CDT CBC WITH DIFFERENTIAL Routine 03/12/2006 5:05 AM CDT BASIC METABOLIC PANEL Routine 03/12/2006 5:05 AM CDT CBC WITH DIFFERENTIAL Routine 03/11/2006 4:40 AM CDT CBC WITH DIFFERENTIAL Routine 03/11/2006 4:40 AM CDT PROTIME-INR Routine 03/11/2006 4:40 AM CDT C-REACTIVE PROTEIN Routine 03/11/2006 4: 40 AM CDT COMPREHENSIVE METABOLIC PANEL Routine 03/11/2006 4:40 AM CDT URINALYSIS W/REFLEX MICROSCOPIC Routine 03/10/2006 9:40 PM CDT CBC WITH DIFFERENTIAL Routine 03/10/2006 5:58 PM CDT CBC WITH DIFFERENTIAL Routine 03/10/2006 5:58 PM CDT C-REACTIVE PROTEIN Routine 03/10/2006 5: 58 PM CDT COMPREHENSIVE METABOLIC PANEL Routine 03/10/2006 5:58 PM CDT PROTIME-INR Routine 03/10/2006 12:36 PM CDT PROTIME-INR Routine 03/09/2006 7:15 AM CDT CBC WITH DIFFERENTIAL Routine 03/08/2006 6:34 PM CDT CBC WITH DIFFERENTIAL Routine 03/08/2006 6:34 PM CDT C-REACTIVE PROTEIN Routine 03/08/2006 6: 34 PM CDT URINALYSIS WITH MICROSCOPIC Routine 03/08/2006 5:55 PM CDT PROTIME-INR Routine 2006 4:50 AM CDT URINALYSIS W/REFLEX MICROSCOPIC Routine 03/05/2006 7:15 PM CDT CBC WITH DIFFERENTIAL Routine 03/05/2006 4:48 AM CDT CBC WITH DIFFERENTIAL Routine 03/05/2006 4:48 AM CDT PROTIME-INR Routine 03/05/2006 4:48 AM CDT BASIC METABOLIC PANEL Routine 03/05/2006 4:48 AM CDT URINALYSIS W/REFLEX MICROSCOPIC Routine 03/02/2006 8:45 AM CDT CBC WITH DIFFERENTIAL Routine 03/02/2006 4:35 AM CDT CBC WITH DIFFERENTIAL Routine 03/02/2006 4:35 AM CDT COMPREHENSIVE METABOLIC PANEL Routine 03/02/2006 4:35 AM CDT CBC WITH DIFFERENTIAL Routine 02/28/2006 5:00 AM CDT CBC WITH DIFFERENTIAL Routine 02/28/2006 5:00 AM CDT CBC WITH DIFFERENTIAL Routine 02/26/2006 12:44 PM CDT CBC WITH DIFFERENTIAL Routine 02/26/2006 12:44 PM CDT C-REACTIVE PROTEIN Routine 02/26/2006 12 :44 PM CDT COMPREHENSIVE METABOLIC PANEL Routine 02/26/2006 12:44 PM CDT URINALYSIS W/REFLEX MICROSCOPIC Routine 02/25/2006 4:21 PM CDT CBC WITH DIFFERENTIAL Routine 02/25/2006 4:36 AM CDT CBC WITH DIFFERENTIAL Routine 02/25/2006 4:36 AM CDT C-REACTIVE PROTEIN Routine 02/25/2006 4: 36 AM CDT COMPREHENSIVE METABOLIC PANEL Routine 02/25/2006 4:36 AM CDT URINALYSIS W/REFLEX MICROSCOPIC Routine 02/22/2006 7:44 PM CDT PT AND APTT Routine 02/15/2006 8:45 PM CDT PROTIME-INR Routine 02/15/2006 5:12 AM CDT PROTIME-INR Routine 02/12/2006 4:54 AM CDT URINALYSIS W/REFLEX MICROSCOPIC Routine 02/11/2006 6:20 PM CDT PROTIME-INR Routine 02/10/2006 5:00 AM CDT PROTIME-INR Routine 02/09/2006 4:50 AM CDT URINALYSIS W/REFLEX MICROSCOPIC Routine 02/09/2006 1:34 AM CDT PROTIME-INR Routine 02/08/2006 4:58 AM CDT PROTIME-INR Routine 02/07/2006 4:45 AM CDT PROTIME-INR Routine 02/06/2006 5:05 AM CDT CBC WITH DIFFERENTIAL Routine 02/06/2006 1:25 AM CDT CBC WITH DIFFERENTIAL Routine 02/06/2006 1:25 AM CDT PROTIME-INR Routine 02/05/2006 6:30 AM CDT URINALYSIS W/REFLEX MICROSCOPIC Routine 02/04/2006 2:48 PM CDT CBC WITH DIFFERENTIAL Routine 02/04/2006 1:15 PM CDT CBC WITH DIFFERENTIAL Routine 02/04/2006 1:15 PM CDT COMPREHENSIVE METABOLIC PANEL Routine 02/04/2006 1:15 PM CDT PROTIME-INR Routine 02/04/2006 4:43 AM CDT PROTIME-INR Routine 02/02/2006 4:47 AM CDT CBC WITH DIFFERENTIAL Routine 01/31/2006 4:50 AM CDT CBC WITH DIFFERENTIAL Routine 01/31/2006 4:50 AM CDT PROTIME-INR Routine 01/31/2006 4:50 AM CDT PROTIME-INR Routine 01/29/2006 4:44 AM CDT PROTIME-INR Routine 01/28/2006 4:52 AM CDT PROTIME-INR Routine 01/26/2006 4:50 AM CDT PROTIME-INR Routine 01/25/2006 4:51 AM CDT PROTIME-INR Routine 01/24/2006 5:00 AM CDT PROTIME-INR Routine 01/23/2006 4:57 AM CDT PROTIME-INR Routine 01/22/2006 9:20 AM CDT BASIC METABOLIC PANEL Routine 01/22/2006 6:50 AM CDT PROTIME-INR Routine 01/20/2006 5:00 AM CDT PROTIME-INR Routine 01/18/2006 5:25 AM CDT PROTIME-INR Routine 01/17/2006 5:35 AM CDT PROTIME-INR Routine 01/16/2006 5:00 AM CDT CBC WITH DIFFERENTIAL Routine 01/14/2006 5:28 AM CDT CBC WITH DIFFERENTIAL Routine 01/14/2006 5:28 AM CDT BASIC METABOLIC PANEL Routine 01/14/2006 5:28 AM CDT URINALYSIS W/REFLEX MICROSCOPIC Routine 01/13/2006 4:14 PM CDT documented in this encounter Results * (ABNORMAL) BLOOD GAS ARTERIAL (03/14/2006 9:41 PM CDT) PH ARTERIAL 7.42 7.35 - 7.45 INTERFACE SYSTEM PCO2 ARTERIAL 37 35 - 48 mm Hg INTERFACE SYSTEM PO2 ARTERIAL 58(L) 83 - 108 mm Hg INTERFACE SYSTEM SO2 ABG 92(L) 95 - 99 % INTERFACE SYSTEM FO2HB ABG 91(L) 94 - 98 % INTERFACE SYSTEM HCO3 ARTERIAL 23 22 - 26 mmol/L INTERFACE SYSTEM BASE EXCESS ABG -0.8 -2.0 - 3.0 mmol/L INTERFACE SYSTEM O2 CONC ARTERIAL 31 INTERFACE SYSTEM 03/14/2006 9:41 PM CDT Heath Forman MD ABG ORDERABLES Final Result Performing Organization Address [facility] Phone Number INTERFACE SYSTEM Refer to clinic/hospital department * (ABNORMAL) CBC WITH DIFFERENTIAL (03/14/2006 4:37 AM CDT) NEUTROPHILS 73(H) 45 - 70 % INTERFAC E SYSTEM LYMPHOCYTES 16 16 - 45 % INTERFAC E SYSTEM MONOCYTES 10 3 - 13 % INTERFACE SYSTEM EOSINOPHILS 1 0 - 7 % INTERFAC E SYSTEM BASOPHILS 0 0 - 2 % INTERFACE SYSTEM NEUTROPHIL ABSOLUTE 6.55 1.90 - 7.00 K/uL INTERFACE SYSTEM LYMPHOCYTE ABSOLUTE 1.41 0.70 - 4.50 K/uL INTERFACE SYSTEM MONOCYTE ABSOLUTE 0.89 0.10 - 1.30 K/uL INTERFACE SYSTEM EOSINOPHIL ABSOLUTE 0.13 0.00 - 0.70 K/uL INTERFACE SYSTEM BASOPHILS ABSOLUTE 0.03 0.00 - 0.20 K/uL INTERFACE SYSTEM 03/14/2006 4:37 AM CDT Tho Gradyu HEMATOLOGY ORDERABLES Final Re sult Performing Organization Address [facility] Phone Number INTERFACE SYSTEM Refer to clinic/hospital department * (ABNORMAL) CBC WITH DIFFERENTIAL (03/14/2006 4:37 AM CDT) WBC 9.0 4.0 - 9.8 K/uL INTERFACE SYSTEM RBC 3.53(L) 4.50 - 5.40 M/uL INTERFACE SYSTEM HEMOGLOBIN 10.5(L) 13.6 - 16.5 g/dL INTERFACE SYSTEM HEMATOCRIT 30.6(L) 40.0 - 48.0 % INTERFACE SYSTEM MCV 86.7 82.0 - 99.0 fL INTERFACE SYSTEM MCH 29.7 27.2 - 32.6 pg INTERFACE SYSTEM MCHC 34.3 31.5 - 35.5 % INTERFACE SYSTEM RDW 12.8 11.5 - 14.5 % INTERFACE SYSTEM RDW-STDEV 40.7 37.1 - 48.7 fL INTERFACE SYSTEM PLATELETS 488(H) 140 - 350 K/uL INTERFACE SYSTEM MPV 9.9 9.3 - 12.4 fL INTERFACE SYSTEM 03/14/2006 4:37 AM CDT [facility] Final Re sult Performing Organization Address [facility] Phone Number INTERFACE SYSTEM Refer to clinic/hospital department * MAGNESIUM LEVEL (03/14/2006 4:37 AM CDT) MAGNESIUM 2.0 1.5 - 2.5 mg/dL INTERFACE SYSTEM 03/14/2006 4:37 AM CDT Rita Esqueda MD CHEMISTRY ORDERABLES Final Res ult Performing Organization Address [facility] Phone Number INTERFACE SYSTEM Refer to clinic/hospital department * (ABNORMAL) COMPREHENSIVE METABOLIC PANEL (03/14/2006 4:37 AM CDT) GLUCOSE 95 65 - 99 mg/dL INTERFACE SYSTEM CREATININE 0.5 0.5 - 1.3 mg/dL INTERFACE SYSTEM CALCIUM 8.6 8.6 - 10.2 mg/dL INTERFACE SYSTEM ALKALINE PHOSPHATASE 79 40 - 129 U/L INTERFACE SYSTEM AST 13 12 - 38 U/L INTERFACE SYSTEM ALT 36 0 - 41 U/L INTERFACE SYSTEM TOTAL PROTEIN 6.5 6.3 - 8.6 g/dL INTERFACE SYSTEM ALBUMIN 3.7 3.4 - 4.8 g/dL INTERFACE SYSTEM BILIRUBIN TOTAL 0.6 0.2 - 1.0 mg/dL INTERFACE SYSTEM BUN 8 6 - 20 mg/dL INTERFACE SYSTEM SODIUM 136 135 - 145 mmol/L INTERFACE SYSTEM POTASSIUM 3.5 3.5 - 4.9 mmol/L INTERFACE SYSTEM CHLORIDE 99 96 - 108 mmol/L INTERFACE SYSTEM CO2 19(L) 22 - 30 mmol/L INTERFACE SYSTEM 03/14/2006 4:37 AM [facility]LES Final Res ult Performing Organization Address [facility] Phone Number INTERFACE SYSTEM Refer to clinic/hospital department * (ABNORMAL) C-REACTIVE PROTEIN (03/14/2006 4:37 AM CDT) CRP 4.1(H) 0.0 - 0.8 mg/dL INTERFACE SYSTEM 03/14/2006 4:37 AM CDT [facility] CHEMISTRY ORDERABLES Final Res ult Performing Organization Address [facility] Phone Number INTERFACE SYSTEM Refer to clinic/hospital department * VANCOMYCIN LEVEL TROUGH (03/13/2006 1:02 PM CDT) VANCOMYCIN, TROUGH 8.7 5.0 - 15.0 ug/mL INTERFACE SYSTEM Comment: Vancomycin Trough Toxic Level= >15.0 ug/mL 03/13/2006 1:02 PM CDT [facility] Final Res ult Performing Organization Address [facility] Phone Number INTERFACE SYSTEM Refer to clinic/hospital department * (ABNORMAL) BASIC METABOLIC PANEL (03/13/2006 5:00 AM CDT) GLUCOSE 107(H) 65 - 99 mg/dL INTERFACE SYSTEM CREATININE 0.6 0.5 - 1.3 mg/dL INTERFACE SYSTEM CALCIUM 8.4(L) 8.6 - 10.2 mg/dL INTERFACE SYSTEM BUN 9 6 - 20 mg/dL INTERFACE SYSTEM SODIUM 132(L) 135 - 145 mmol/L INTERFACE SYSTEM POTASSIUM 3.1(L) 3.5 - 4.9 mmol/L INTERFACE SYSTEM CHLORIDE 99 96 - 108 mmol/L INTERFACE SYSTEM CO2 23 22 - 30 mmol/L INTERFACE SYSTEM 03/13/2006 5:00 AM CDT Sushil Arroyo MD CHEMISTRY ORDERABLES Final R esult Performing Organization Address [facility] Phone Number INTERFACE SYSTEM Refer to clinic/hospital department * C-REACTIVE PROTEIN, CSF (03/12/2006 3:10 PM CDT) CRP, CSF 0.15 mg/dL INTERFACE SYSTEM Comment: Note: New methodology using CSF CRP (highly sensitive) assay is effective 12/11/03. No reference range has been established for CSF CRP. 03/12/2006 3:10 PM CDT Alexa Dillon MD BODY FLUIDS AND STOOLS Final Result Performing Organization Address [facility] Phone Number INTERFACE SYSTEM Refer to clinic/hospital department * (ABNORMAL) SPINAL FLUID CELL COUNT W/REFLEXIVE DIFF (03/12/2006 3:10 PM CDT) NEUTROPHILS, CSF 97(H) 0 - 6 % INTERFACE SYSTEM LYMPHOCYTES, CSF 2(L) 40 - 80 % INTERFACE SYSTEM MONOCYTES/ HISTIOCYTES, CSF 1(L) 15 - 45 % INTERFACE SYSTEM # CELLS COUNTED FOR DIFF, CSF 100 WBC Counted INTERFACE SYSTEM 03/12/2006 3:10 PM CDT Aman Gottlieb DO BODY FLUIDS AND STOOLS Final Result Performing Organization Address [facility] Phone Number INTERFACE SYSTEM Refer to clinic/hospital department * (ABNORMAL) TOTAL PROTEIN, CSF (03/12/2006 3:10 PM CDT) PROTEIN, CSF 365(H) 15 - 45 mg/dL INTERFACE SYSTEM Comment: New CSF Protein Quantitative Methodology - Note New Reference Range. bloody sample 03/12/2006 3:10 PM CDT Aman Gottlieb DO BODY FLUIDS AND STOOLS Final Result Performing Organization Address [facility] Phone Number INTERFACE SYSTEM Refer to clinic/hospital department * (ABNORMAL) GLUCOSE, CSF (03/12/2006 3:10 PM CDT) GLUCOSE, CSF 21(L) 40 - 70 mg/dL INTERFACE SYSTEM Comment:bloody sample 03/12/2006 3:10 PM CDT us Aman Gottlieb DO BODY FLUIDS AND STOOLS Final Result INTERFACE SYSTEM Refer to clinic/hospital department * (ABNORMAL) SPINAL FLUID CELL COUNT W/REFLEXIVE DIFF (03/12/2006 3:10 PM CDT) COLOR, CSF Red(A) Colorless INTERFACE SYSTEM APPEARANCE, CSF Cloudy(A) Clear INTERFACE SYSTEM SUPERNATE COLOR, CSF Red(A) INTERFACE SYSTEM Comment:called to kelvin at 03/12/2006 6:32 PM TUBE #, CSF 3 INTERFAC E SYSTEM Comment:3 of 3 VOLUME, CSF 4.5 mL INTERFAC E SYSTEM WBC, CSF 3547(AA) 0 - 10 /uL INTERFACE SYSTEM Comment:Results called to thomas de leon at 03/12/2006 6:31 PM and read back verified. RBC, CSF 950711(H) <=0 /uL INTERFACE SYSTEM 03/12/2006 3:10 PM CDT us Aman Gottlieb DO BODY FLUIDS AND STOOLS Final Result Performing Organization Address [facility] de Phone Number INTERFACE SYSTEM Refer to clinic/hospital department * CBC WITH DIFFERENTIAL (03/12/2006 5:05 AM CDT) NEUTROPHILS 69 45 - 70 % INTERFAC E SYSTEM LYMPHOCYTES 18 16 - 45 % INTERFAC E SYSTEM MONOCYTES 12 3 - 13 % INTERFACE SYSTEM EOSINOPHILS 0 0 - 7 % INTERFAC E SYSTEM BASOPHILS 0 0 - 2 % INTERFACE SYSTEM NEUTROPHIL ABSOLUTE 5.15 1.90 - 7.00 K/uL INTERFACE SYSTEM LYMPHOCYTE ABSOLUTE 1.32 0.70 - 4.50 K/uL INTERFACE SYSTEM MONOCYTE ABSOLUTE 0.90 0.10 - 1.30 K/uL INTERFACE SYSTEM EOSINOPHIL ABSOLUTE 0.03 0.00 - 0.70 K/uL INTERFACE SYSTEM BASOPHILS ABSOLUTE 0.02 0.00 - 0.20 K/uL INTERFACE SYSTEM 03/12/2006 5:05 AM CDT us Sushil Arroyo MD HEMATOLOGY ORDERABLES Final Result Performing Organization Address [facility] de Phone Number INTERFACE SYSTEM Refer to clinic/hospital department * (ABNORMAL) CBC WITH DIFFERENTIAL (03/12/2006 5:05 AM CDT) WBC 7.4 4.0 - 9.8 K/uL INTERFACE SYSTEM RBC 3.38(L) 4.50 - 5.40 M/uL INTERFACE SYSTEM HEMOGLOBIN 9.9(L) 13.6 - 16.5 g/dL INTERFACE SYSTEM HEMATOCRIT 29.6(L) 40.0 - 48.0 % INTERFACE SYSTEM MCV 87.6 82.0 - 99.0 fL INTERFACE SYSTEM MCH 29.3 27.2 - 32.6 pg INTERFACE SYSTEM MCHC 33.4 31.5 - 35.5 % INTERFACE SYSTEM RDW 13.1 11.5 - 14.5 % INTERFACE SYSTEM RDW-STDEV 42.6 37.1 - 48.7 fL INTERFACE SYSTEM PLATELETS 361(H) 140 - 350 K/uL INTERFACE SYSTEM MPV 9.8 9.3 - 12.4 fL INTERFACE SYSTEM 03/12/2006 5:05 AM CDT Sushil Arroyo MD HEMATOLOGY ORDERABLES Final Result Performing Organization Address [facility] Phone Number INTERFACE SYSTEM Refer to clinic/hospital department * (ABNORMAL) BASIC METABOLIC PANEL (03/12/2006 5:05 AM CDT) GLUCOSE 124(H) 65 - 99 mg/dL INTERFACE SYSTEM CREATININE 0.6 0.5 - 1.3 mg/dL INTERFACE SYSTEM CALCIUM 8.3(L) 8.6 - 10.2 mg/dL INTERFACE SYSTEM BUN 12 6 - 20 mg/dL INTERFACE SYSTEM SODIUM 135 135 - 145 mmol/L INTERFACE SYSTEM POTASSIUM 3.0(L) 3.5 - 4.9 mmol/L INTERFACE SYSTEM CHLORIDE 100 96 - 108 mmol/L INTERFACE SYSTEM CO2 22 22 - 30 mmol/L INTERFACE SYSTEM 03/12/2006 5:05 AM CDT Sushil Arroyo MD CHEMISTRY ORDERABLES Final R esult Performing Organization Address [facility] de Phone Number INTERFACE SYSTEM Refer to clinic/hospital department * (ABNORMAL) CBC WITH DIFFERENTIAL (03/11/2006 4:40 AM CDT) NEUTROPHILS 77(H) 45 - 70 % INTERFAC E SYSTEM LYMPHOCYTES 12(L) 16 - 45 % INTERFAC E SYSTEM MONOCYTES 10 3 - 13 % INTERFACE SYSTEM EOSINOPHILS 0 0 - 7 % INTERFAC E SYSTEM BASOPHILS 0 0 - 2 % INTERFACE SYSTEM NEUTROPHIL ABSOLUTE 7.19(H) 1.90 - 7.00 K/uL INTERFACE SYSTEM LYMPHOCYTE ABSOLUTE 1.15 0.70 - 4.50 K/uL INTERFACE SYSTEM MONOCYTE ABSOLUTE 0.91 0.10 - 1.30 K/uL INTERFACE SYSTEM EOSINOPHIL ABSOLUTE 0.02 0.00 - 0.70 K/uL INTERFACE SYSTEM BASOPHILS ABSOLUTE 0.02 0.00 - 0.20 K/uL INTERFACE SYSTEM 03/11/2006 4:40 AM CDT Sushil Arroyo MD HEMATOLOGY ORDERABLES Final Result Performing Organization Address [facility] de Phone Number INTERFACE SYSTEM Refer to clinic/hospital department * (ABNORMAL) CBC WITH DIFFERENTIAL (03/11/2006 4:40 AM CDT) WBC 9.3 4.0 - 9.8 K/uL INTERFACE SYSTEM RBC 3.36(L) 4.50 - 5.40 M/uL INTERFACE SYSTEM HEMOGLOBIN 10.0(L) 13.6 - 16.5 g/dL INTERFACE SYSTEM HEMATOCRIT 29.7(L) 40.0 - 48.0 % INTERFACE SYSTEM MCV 88.4 82.0 - 99.0 fL INTERFACE SYSTEM MCH 29.8 27.2 - 32.6 pg INTERFACE SYSTEM MCHC 33.7 31.5 - 35.5 % INTERFACE SYSTEM RDW 13.3 11.5 - 14.5 % INTERFACE SYSTEM RDW-STDEV 42.8 37.1 - 48.7 fL INTERFACE SYSTEM PLATELETS 403(H) 140 - 350 K/uL INTERFACE SYSTEM MPV 10.2 9.3 - 12.4 fL INTERFACE SYSTEM 03/11/2006 4:40 AM CDT Sushil Arroyo MD HEMATOLOGY ORDERABLES Final Result Performing Organization Address [facility] Co de Phone Number INTERFACE SYSTEM Refer to clinic/hospital department * (ABNORMAL) C-REACTIVE PROTEIN (03/11/2006 4:40 AM CDT) CRP 6.5(H) 0.0 - 0.8 mg/dL INTERFACE SYSTEM 03/11/2006 4:40 AM CDT Sushil Arroyo MD CHEMISTRY ORDERABLES Final R [facility] Performing Organization Address [facility] Phone Number INTERFACE SYSTEM Refer to clinic/hospital department * (ABNORMAL) COMPREHENSIVE METABOLIC PANEL (03/11/2006 4:40 AM CDT) GLUCOSE 113(H) 65 - 99 mg/dL INTERFACE SYSTEM CREATININE 0.7 0.5 - 1.3 mg/dL INTERFACE SYSTEM CALCIUM 8.9 8.6 - 10.2 mg/dL INTERFACE SYSTEM ALKALINE PHOSPHATASE 77 40 - 129 U/L INTERFACE SYSTEM AST 23 12 - 38 U/L INTERFACE SYSTEM ALT 67(H) 0 - 41 U/L INTERFACE SYSTEM TOTAL PROTEIN 6.7 6.3 - 8.6 g/dL INTERFACE SYSTEM ALBUMIN 3.9 3.4 - 4.8 g/dL INTERFACE SYSTEM BILIRUBIN TOTAL 0.6 0.2 - 1.0 mg/dL INTERFACE SYSTEM BUN 17 6 - 20 mg/dL INTERFACE SYSTEM SODIUM 136 135 - 145 mmol/L INTERFACE SYSTEM POTASSIUM 3.6 3.5 - 4.9 mmol/L INTERFACE SYSTEM CHLORIDE 99 96 - 108 mmol/L INTERFACE SYSTEM CO2 24 22 - 30 mmol/L INTERFACE SYSTEM 03/11/2006 4:40 AM CDT Sushil Arroyo MD CHEMISTRY ORDERABLES [facility] Performing Organization Address [facility] Phone Number INTERFACE SYSTEM Refer to clinic/hospital department * (ABNORMAL) PROTIME-INR (03/11/2006 4:40 AM CDT) PROTIME 31.2(H) 12.7 - 15.1 Seconds INTERFACE SYSTEM INR 2.9(H) 0.9 - 1.1 INTERFACE SYSTEM Comment: INR Therapeutic Range: Adult: 2.0 - 3.0 for pulmonary embolism or prophylaxis against venous thrombosis or systemic embolization. 2.0 - 3.0 for patients with tissue heart valves. 2.5 - 3.5 for patients with mechanical heart valves or post DE. Pediatric (12 years and under): 1.5 - 3.0 Although the target range in children is not well established , INR values of 1.5 - 3.0 are recommended for most patients. Higher values have been used in children with prosthetic cardiac valves and hereditary clotting disorders. (<3 days) therapeutic ranges have not been established. 03/11/2006 4:40 AM CDT Sushil Arroyo MD HEMATOLOGY ORDERABLES Final Result Performing Organization Address [facility] Phone Number INTERFACE SYSTEM Refer to clinic/hospital department * (ABNORMAL) URINALYSIS (03/10/2006 9:40 PM CDT) COLOR UA Yellow INTERFACE SYSTEM CLARITY UA Cloudy(A) Clear INTERFACE SYSTEM SPECIFIC GRAVITY UA 1.015 1.001 - 1.035 INTERFACE SYSTEM PH UA 6.5 5.0 - 8.0 INTERFACE SYSTEM LEUKOCYTE ESTERASE UA Trace(A) Negative INTERFACE SYSTEM NITRITE UA Negative Negative INTERFACE SYSTEM PROTEIN UA Trace(A) Negative INTERFACE SYSTEM GLUCOSE UA Negative Negative INTERFACE SYSTEM KETONES UA 1+(A) Negative INTERFACE SYSTEM UROBILINOGEN UA 2(H) <=1 mg/dL INTE RFACE SYSTEM BILIRUBIN UA Negative Negative INTERFA CE SYSTEM BLOOD UA Negative Negative INTERFACE SYSTEM WBC UA 5(H) 0 - 3 /HPF INTERFACE SYSTEM RBC UA 2 0 - 3 /HPF INTERFACE SYSTEM EPITHELIAL CELLS, URINE 0-2 /HPF INTERFACE SYSTEM YEAST Rare(A) None Seen /HPF INTERFACE SYSTEM AMORPHOUS CRYSTAL Rare /HPF INTERFACE SYSTEM 03/10/2006 9:40 PM CDT Sushil Arroyo MD URINE ORDERABLES Final Resul t Performing Organization Address [facility] de Phone Number INTERFACE SYSTEM Refer to clinic/hospital department * (ABNORMAL) CBC WITH DIFFERENTIAL (03/10/2006 5:58 PM CDT) NEUTROPHILS 79(H) 45 - 70 % INTERFAC E SYSTEM LYMPHOCYTES 10(L) 16 - 45 % INTERFAC E SYSTEM MONOCYTES 9 3 - 13 % INTERFACE SYSTEM EOSINOPHILS 2 0 - 7 % INTERFAC E SYSTEM BASOPHILS 0 0 - 2 % INTERFACE SYSTEM NEUTROPHIL ABSOLUTE 7.41(H) 1.90 - 7.00 K/uL INTERFACE SYSTEM LYMPHOCYTE ABSOLUTE 0.93 0.70 - 4.50 K/uL INTERFACE SYSTEM MONOCYTE ABSOLUTE 0.84 0.10 - 1.30 K/uL INTERFACE SYSTEM EOSINOPHIL ABSOLUTE 0.15 0.00 - 0.70 K/uL INTERFACE SYSTEM BASOPHILS ABSOLUTE 0.02 0.00 - 0.20 K/uL INTERFACE SYSTEM 03/10/2006 5:58 PM CDT Sushil Arroyo MD HEMATOLOGY ORDERABLES Final Result Performing Organization Address [facility] de Phone Number INTERFACE SYSTEM Refer to clinic/hospital department * (ABNORMAL) CBC WITH DIFFERENTIAL (03/10/2006 5:58 PM CDT) WBC 9.4 4.0 - 9.8 K/uL INTERFACE SYSTEM RBC 3.61(L) 4.50 - 5.40 M/uL INTERFACE SYSTEM HEMOGLOBIN 10.7(L) 13.6 - 16.5 g/dL INTERFACE SYSTEM HEMATOCRIT 32.7(L) 40.0 - 48.0 % INTERFACE SYSTEM MCV 90.6 82.0 - 99.0 fL INTERFACE SYSTEM MCH 29.6 27.2 - 32.6 pg INTERFACE SYSTEM MCHC 32.7 31.5 - 35.5 % INTERFACE SYSTEM RDW 13.2 11.5 - 14.5 % INTERFACE SYSTEM RDW-STDEV 43.7 37.1 - 48.7 fL INTERFACE SYSTEM PLATELETS 380(H) 140 - 350 K/uL INTERFACE SYSTEM MPV 10.1 9.3 - 12.4 fL INTERFACE SYSTEM 03/10/2006 5:58 PM CDT Sushil Arroyo MD HEMATOLOGY ORDERABLES Final Result INTERFACE SYSTEM Refer to clinic/hospital department * (ABNORMAL) COMPREHENSIVE METABOLIC PANEL (03/10/2006 5:58 PM CDT) GLUCOSE 121(H) 65 - 99 mg/dL INTERFACE SYSTEM CREATININE 0.7 0.5 - 1.3 mg/dL INTERFACE SYSTEM CALCIUM 9.0 8.6 - 10.2 mg/dL INTERFACE SYSTEM ALKALINE PHOSPHATASE 82 40 - 129 U/L INTERFACE SYSTEM AST 33 12 - 38 U/L INTERFACE SYSTEM ALT 79(H) 0 - 41 U/L INTERFACE SYSTEM TOTAL PROTEIN 7.2 6.3 - 8.6 g/dL INTERFACE SYSTEM ALBUMIN 4.1 3.4 - 4.8 g/dL INTERFACE SYSTEM BILIRUBIN TOTAL 0.6 0.2 - 1.0 mg/dL INTERFACE SYSTEM BUN 14 6 - 20 mg/dL INTERFACE SYSTEM SODIUM 138 135 - 145 mmol/L INTERFACE SYSTEM POTASSIUM 3.6 3.5 - 4.9 mmol/L INTERFACE SYSTEM CHLORIDE 100 96 - 108 mmol/L INTERFACE SYSTEM CO2 27 22 - 30 mmol/L INTERFACE SYSTEM 03/10/2006 5:58 PM CDT us Sushil Arroyo MD CHEMISTRY ORDERABLES Final R esult INTERFACE SYSTEM Refer to clinic/hospital department * (ABNORMAL) C-REACTIVE PROTEIN (03/10/2006 5:58 PM CDT) CRP 7.6(H) 0.0 - 0.8 mg/dL INTERFACE SYSTEM 03/10/2006 5:58 PM CDT Sushil Arroyo MD CHEMISTRY ORDERABLES Final R esult INTERFACE SYSTEM Refer to clinic/hospital department * (ABNORMAL) PROTIME-INR (03/10/2006 12:36 PM CDT) PROTIME 25.9(H) 12.7 - 15.1 Seconds INTERFACE SYSTEM INR 2.3(H) 0.9 - 1.1 INTERFACE SYSTEM Comment: INR Therapeutic Range: Adult: 2.0 - 3.0 for pulmonary embolism or prophylaxis against venous thrombosis or systemic embolization. 2.0 - 3.0 for patients with tissue heart valves. 2.5 - 3.5 for patients with mechanical heart valves or post DE. Pediatric (12 years and under): 1.5 - 3.0 Although the target range in children is not well established , INR values of 1.5 - 3.0 are recommended for most patients. Higher values have been used in children with prosthetic cardiac valves and hereditary clotting disorders. (<3 days) therapeutic ranges have not been established. 03/10/2006 12:3 6 PM CDT us Sushil Arroyo MD HEMATOLOGY ORDERABLES Final Result Performing Organization Address [facility] de Phone Number INTERFACE SYSTEM Refer to clinic/hospital department * (ABNORMAL) PROTIME-INR (03/09/2006 7:15 AM CDT) PROTIME 22.5(H) 12.7 - 15.1 Seconds INTERFACE SYSTEM INR 1.9(H) 0.9 - 1.1 INTERFACE SYSTEM Comment: INR Therapeutic Range: Adult: 2.0 - 3.0 for pulmonary embolism or prophylaxis against venous thrombosis or systemic embolization. 2.0 - 3.0 for patients with tissue heart valves. 2.5 - 3.5 for patients with mechanical heart valves or post DE. Pediatric (12 years and under): 1.5 - 3.0 Although the target range in children is not well established , INR values of 1.5 - 3.0 are recommended for most patients. Higher values have been used in children with prosthetic cardiac valves and hereditary clotting disorders. (<3 days) therapeutic ranges have not been established. 03/09/2006 7:15 AM CDT us Keenan Mandujano MD HEMATOLOGY ORDERABLES Final Res ult Performing Organization Address City/[facility] de Phone Number INTERFACE SYSTEM Refer to clinic/hospital department * CBC WITH DIFFERENTIAL (03/08/2006 6:34 PM CDT) NEUTROPHILS 65 45 - 70 % INTERFAC E SYSTEM LYMPHOCYTES 22 16 - 45 % INTERFAC E SYSTEM MONOCYTES 11 3 - 13 % INTERFACE SYSTEM EOSINOPHILS 1 0 - 7 % INTERFAC E SYSTEM BASOPHILS 0 0 - 2 % INTERFACE SYSTEM NEUTROPHIL ABSOLUTE 4.62 1.90 - 7.00 K/uL INTERFACE SYSTEM LYMPHOCYTE ABSOLUTE 1.60 0.70 - 4.50 K/uL INTERFACE SYSTEM MONOCYTE ABSOLUTE 0.79 0.10 - 1.30 K/uL INTERFACE SYSTEM EOSINOPHIL ABSOLUTE 0.09 0.00 - 0.70 K/uL INTERFACE SYSTEM BASOPHILS ABSOLUTE 0.03 0.00 - 0.20 K/uL INTERFACE SYSTEM 03/08/2006 6:34 PM CDT us Keenan Mandujano MD HEMATOLOGY ORDERABLES Final Res ult Performing Organization Address [facility] Phone Number INTERFACE SYSTEM Refer to clinic/hospital department * (ABNORMAL) CBC WITH DIFFERENTIAL (03/08/2006 6:34 PM CDT) WBC 7.1 4.0 - 9.8 K/uL INTERFACE SYSTEM RBC 3.62(L) 4.50 - 5.40 M/uL INTERFACE SYSTEM HEMOGLOBIN 10.9(L) 13.6 - 16.5 g/dL INTERFACE SYSTEM HEMATOCRIT 32.4(L) 40.0 - 48.0 % INTERFACE SYSTEM MCV 89.5 82.0 - 99.0 fL INTERFACE SYSTEM MCH 30.1 27.2 - 32.6 pg INTERFACE SYSTEM MCHC 33.6 31.5 - 35.5 % INTERFACE SYSTEM RDW 13.0 11.5 - 14.5 % INTERFACE SYSTEM RDW-STDEV 42.7 37.1 - 48.7 fL INTERFACE SYSTEM PLATELETS 326 140 - 350 K/uL INTERFACE SYSTEM MPV 10.1 9.3 - 12.4 fL INTERFACE SYSTEM 03/08/2006 6:34 PM CDT us Keenan Mandujano MD HEMATOLOGY ORDERABLES Final Res ult Performing Organization Address [facility] Phone Number INTERFACE SYSTEM Refer to clinic/hospital department * (ABNORMAL) C-REACTIVE PROTEIN (03/08/2006 6:34 PM CDT) CRP 5.2(H) 0.0 - 0.8 mg/dL INTERFACE SYSTEM 03/08/2006 6:34 PM CDT us Keenan Mandujano MD CHEMISTRY ORDERABLES Final Resu lt Performing Organization Address [facility] mi Phone Number INTERFACE SYSTEM Refer to clinic/hospital department * (ABNORMAL) URINALYSIS WITH MICROSCOPIC (03/08/2006 5:55 PM CDT) COLOR UA Yellow INTERFACE SYSTEM CLARITY UA Slt. Cloudy(A) Clear INTERFACE SYSTEM SPECIFIC GRAVITY UA 1.010 1.001 - 1.035 INTERFACE SYSTEM PH UA 8.0 5.0 - 8.0 INTERFACE SYSTEM LEUKOCYTE ESTERASE UA Negative Negative INTERFACE SYSTEM NITRITE UA Negative Negative INTERFACE SYSTEM PROTEIN UA Negative Negative INTERFACE SYSTEM GLUCOSE UA Negative Negative INTERFACE SYSTEM KETONES UA Negative Negative INTERFACE SYSTEM UROBILINOGEN UA <1 <=1 mg/dL INTE RFACE SYSTEM BILIRUBIN UA Negative Negative INTERFA CE SYSTEM BLOOD UA Negative Negative INTERFACE SYSTEM WBC UA <1 0 - 3 /HPF INTERFACE SYSTEM RBC UA 2 0 - 3 /HPF INTERFACE SYSTEM AMORPHOUS CRYSTAL Rare /HPF INTERFACE SYSTEM 03/08/2006 5:55 PM CDT Keenan Mandujano MD URINE ORDERABLES Final Result Performing Organization Address [facility] Phone Number INTERFACE SYSTEM Refer to clinic/hospital department * (ABNORMAL) PROTIME-INR (2006 4:50 AM CDT) PROTIME 17.6(H) 12.7 - 15.1 Seconds INTERFACE SYSTEM INR 1.3(H) 0.9 - 1.1 INTERFACE SYSTEM Comment: INR Therapeutic Range: Adult: 2.0 - 3.0 for pulmonary embolism or prophylaxis against venous thrombosis or systemic embolization. 2.0 - 3.0 for patients with tissue heart valves. 2.5 - 3.5 for patients with mechanical heart valves or post DE. Pediatric (12 years and under): 1.5 - 3.0 Although the target range in children is not well established , INR values of 1.5 - 3.0 are recommended for most patients. Higher values have been used in children with prosthetic cardiac valves and hereditary clotting disorders. (<3 days) therapeutic ranges have not been established. 2006 4:50 AM CDT Sushil Arroyo MD HEMATOLOGY ORDERABLES Final Result Performing Organization Address [facility] Phone Number INTERFACE SYSTEM Refer to clinic/hospital department * (ABNORMAL) URINALYSIS (03/05/2006 7:15 PM CDT) COLOR UA Yellow INTERFACE SYSTEM CLARITY UA Clear Clear INTERFACE SYSTEM SPECIFIC GRAVITY UA 1.025 1.001 - 1.035 INTERFACE SYSTEM PH UA 5.5 5.0 - 8.0 INTERFACE SYSTEM LEUKOCYTE ESTERASE UA Negative Negative INTERFACE SYSTEM NITRITE UA Negative Negative INTERFACE SYSTEM PROTEIN UA Trace(A) Negative INTERFACE SYSTEM GLUCOSE UA Negative Negative INTERFACE SYSTEM KETONES UA Negative Negative INTERFACE SYSTEM UROBILINOGEN UA <1 <=1 mg/dL INTE RFACE SYSTEM BILIRUBIN UA Negative Negative INTERFA CE SYSTEM BLOOD UA Negative Negative INTERFACE SYSTEM WBC UA 3 0 - 3 /HPF INTERFACE SYSTEM RBC UA 1 0 - 3 /HPF INTERFACE SYSTEM EPITHELIAL CELLS, URINE 0-2 /HPF INTERFACE SYSTEM HYALINE CAST 2 0 - 2 /LPF INTERF DEANDRE SYSTEM 03/05/2006 7:15 PM CDT Sushil Arroyo MD URINE ORDERABLES Final Resul t Performing Organization Address [facility] Phone Number INTERFACE SYSTEM Refer to clinic/hospital department * (ABNORMAL) CBC WITH DIFFERENTIAL (03/05/2006 4:48 AM CDT) NEUTROPHILS 58 45 - 70 % INTERFAC E SYSTEM LYMPHOCYTES 23 16 - 45 % INTERFAC E SYSTEM MONOCYTES 15(H) 3 - 13 % INTERFACE SYSTEM EOSINOPHILS 4 0 - 7 % INTERFAC E SYSTEM BASOPHILS 1 0 - 2 % INTERFACE SYSTEM NEUTROPHIL ABSOLUTE 3.68 1.90 - 7.00 K/uL INTERFACE SYSTEM LYMPHOCYTE ABSOLUTE 1.44 0.70 - 4.50 K/uL INTERFACE SYSTEM MONOCYTE ABSOLUTE 0.97 0.10 - 1.30 K/uL INTERFACE SYSTEM EOSINOPHIL ABSOLUTE 0.22 0.00 - 0.70 K/uL INTERFACE SYSTEM BASOPHILS ABSOLUTE 0.03 0.00 - 0.20 K/uL INTERFACE SYSTEM 03/05/2006 4:48 AM CDT Sushil Arroyo MD HEMATOLOGY ORDERABLES Final Result Performing Organization Address [facility] Phone Number INTERFACE SYSTEM Refer to clinic/hospital department * (ABNORMAL) CBC WITH DIFFERENTIAL (03/05/2006 4:48 AM CDT) WBC 6.3 4.0 - 9.8 K/uL INTERFACE SYSTEM RBC 3.44(L) 4.50 - 5.40 M/uL INTERFACE SYSTEM HEMOGLOBIN 10.2(L) 13.6 - 16.5 g/dL INTERFACE SYSTEM HEMATOCRIT 31.5(L) 40.0 - 48.0 % INTERFACE SYSTEM MCV 91.6 82.0 - 99.0 fL INTERFACE SYSTEM MCH 29.7 27.2 - 32.6 pg INTERFACE SYSTEM MCHC 32.4 31.5 - 35.5 % INTERFACE SYSTEM RDW 13.2 11.5 - 14.5 % INTERFACE SYSTEM RDW-STDEV 44.7 37.1 - 48.7 fL INTERFACE SYSTEM PLATELETS 210 140 - 350 K/uL INTERFACE SYSTEM MPV 10.6 9.3 - 12.4 fL INTERFACE SYSTEM 03/05/2006 4:48 AM CDT Sushil Arroyo MD HEMATOLOGY ORDERABLES Final Result Performing Organization Address City/[facility] de Phone Number INTERFACE SYSTEM Refer to clinic/hospital department * (ABNORMAL) BASIC METABOLIC PANEL (03/05/2006 4:48 AM CDT) GLUCOSE 109(H) 65 - 99 mg/dL INTERFACE SYSTEM CREATININE 0.7 0.5 - 1.3 mg/dL INTERFACE SYSTEM CALCIUM 8.7 8.6 - 10.2 mg/dL INTERFACE SYSTEM BUN 14 6 - 20 mg/dL INTERFACE SYSTEM SODIUM 136 135 - 145 mmol/L INTERFACE SYSTEM POTASSIUM 3.7 3.5 - 4.9 mmol/L INTERFACE SYSTEM CHLORIDE 99 96 - 108 mmol/L INTERFACE SYSTEM CO2 30 22 - 30 mmol/L INTERFACE SYSTEM 03/05/2006 4:48 AM CDT Sushil Arroyo MD CHEMISTRY ORDERABLES Final R esult Performing Organization Address [facility] de Phone Number INTERFACE SYSTEM Refer to clinic/hospital department * (ABNORMAL) PROTIME-INR (03/05/2006 4:48 AM CDT) PROTIME 15.2(H) 12.7 - 15.1 Seconds INTERFACE SYSTEM INR 1.1 0.9 - 1.1 INTERFACE SYSTEM Comment: INR Therapeutic Range: Adult: 2.0 - 3.0 for pulmonary embolism or prophylaxis against venous thrombosis or systemic embolization. 2.0 - 3.0 for patients with tissue heart valves. 2.5 - 3.5 for patients with mechanical heart valves or post DE. Pediatric (12 years and under): 1.5 - 3.0 Although the target range in children is not well established , INR values of 1.5 - 3.0 are recommended for most patients. Higher values have been used in children with prosthetic cardiac valves and hereditary clotting disorders. (<3 days) therapeutic ranges have not been established. 03/05/2006 4:48 AM CDT Sushil Arroyo MD HEMATOLOGY ORDERABLES Final Result Performing Organization Address [facility] Phone Number INTERFACE SYSTEM Refer to clinic/hospital department * URINALYSIS (03/02/2006 8:45 AM CDT) COLOR UA Yellow INTERFACE SYSTEM CLARITY UA Clear Clear INTERFACE SYSTEM SPECIFIC GRAVITY UA 1.015 1.001 - 1.035 INTERFACE SYSTEM PH UA 6.0 5.0 - 8.0 INTERFACE SYSTEM LEUKOCYTE ESTERASE UA Negative Negative INTERFACE SYSTEM NITRITE UA Negative Negative INTERFACE SYSTEM PROTEIN UA Negative Negative INTERFACE SYSTEM GLUCOSE UA Negative Negative INTERFACE SYSTEM KETONES UA Negative Negative INTERFACE SYSTEM UROBILINOGEN UA <1 <=1 mg/dL INTE RFACE SYSTEM BILIRUBIN UA Negative Negative INTERFA CE SYSTEM BLOOD UA Negative Negative INTERFACE SYSTEM 03/02/2006 8:45 AM CDT Tho Gradyu URINE ORDERABLES Final Result Performing Organization Address [facility] Phone Number INTERFACE SYSTEM Refer to clinic/hospital department * CBC WITH DIFFERENTIAL (03/02/2006 4:35 AM CDT) NEUTROPHILS 59 45 - 70 % INTERFAC E SYSTEM LYMPHOCYTES 26 16 - 45 % INTERFAC E SYSTEM MONOCYTES 11 3 - 13 % INTERFACE SYSTEM EOSINOPHILS 3 0 - 7 % INTERFAC E SYSTEM BASOPHILS 0 0 - 2 % INTERFACE SYSTEM NEUTROPHIL ABSOLUTE 3.46 1.90 - 7.00 K/uL INTERFACE SYSTEM LYMPHOCYTE ABSOLUTE 1.56 0.70 - 4.50 K/uL INTERFACE SYSTEM MONOCYTE ABSOLUTE 0.66 0.10 - 1.30 K/uL INTERFACE SYSTEM EOSINOPHIL ABSOLUTE 0.20 0.00 - 0.70 K/uL INTERFACE SYSTEM BASOPHILS ABSOLUTE 0.02 0.00 - 0.20 K/uL INTERFACE SYSTEM 03/02/2006 4:35 AM CDT Sushil Arroyo MD HEMATOLOGY ORDERABLES Final Result Performing Organization Address [facility] Phone Number INTERFACE SYSTEM Refer to clinic/hospital department * (ABNORMAL) CBC WITH DIFFERENTIAL (03/02/2006 4:35 AM CDT) WBC 5.9 4.0 - 9.8 K/uL INTERFACE SYSTEM RBC 3.67(L) 4.50 - 5.40 M/uL INTERFACE SYSTEM HEMOGLOBIN 10.7(L) 13.6 - 16.5 g/dL INTERFACE SYSTEM HEMATOCRIT 33.5(L) 40.0 - 48.0 % INTERFACE SYSTEM MCV 91.3 82.0 - 99.0 fL INTERFACE SYSTEM MCH 29.2 27.2 - 32.6 pg INTERFACE SYSTEM MCHC 31.9 31.5 - 35.5 % INTERFACE SYSTEM RDW 13.1 11.5 - 14.5 % INTERFACE SYSTEM RDW-STDEV 43.6 37.1 - 48.7 fL INTERFACE SYSTEM PLATELETS 196 140 - 350 K/uL INTERFACE SYSTEM MPV 10.6 9.3 - 12.4 fL INTERFACE SYSTEM 03/02/2006 4:35 AM CDT Sushil Arroyo MD HEMATOLOGY ORDERABLES Final Result Performing Organization Address [facility] Phone Number INTERFACE SYSTEM Refer to clinic/hospital department * (ABNORMAL) COMPREHENSIVE METABOLIC PANEL (03/02/2006 4:35 AM CDT) GLUCOSE 90 65 - 99 mg/dL INTERFACE SYSTEM CREATININE 0.7 0.5 - 1.3 mg/dL INTERFACE SYSTEM CALCIUM 8.3(L) 8.6 - 10.2 mg/dL INTERFACE SYSTEM ALKALINE PHOSPHATASE 58 40 - 129 U/L INTERFACE SYSTEM AST 35 12 - 38 U/L INTERFACE SYSTEM ALT 98(H) 0 - 41 U/L INTERFACE SYSTEM TOTAL PROTEIN 5.1(L) 6.3 - 8.6 g/dL INTERFACE SYSTEM ALBUMIN 3.2(L) 3.4 - 4.8 g/dL INTERFACE SYSTEM BILIRUBIN TOTAL 0.4 0.2 - 1.0 mg/dL INTERFACE SYSTEM BUN 9 6 - 20 mg/dL INTERFACE SYSTEM SODIUM 141 135 - 145 mmol/L INTERFACE SYSTEM POTASSIUM 3.6 3.5 - 4.9 mmol/L INTERFACE SYSTEM CHLORIDE 106 96 - 108 mmol/L INTERFACE SYSTEM CO2 27 22 - 30 mmol/L INTERFACE SYSTEM 03/02/2006 4:35 AM CDT Sushil Arroyo MD CHEMISTRY ORDERABLES Final R esult Performing Organization Address [facility] de Phone Number INTERFACE SYSTEM Refer to clinic/hospital department * CBC WITH DIFFERENTIAL (02/28/2006 5:00 AM CDT) NEUTROPHILS 48 45 - 70 % INTERFAC E SYSTEM LYMPHOCYTES 36 16 - 45 % INTERFAC E SYSTEM MONOCYTES 12 3 - 13 % INTERFACE SYSTEM EOSINOPHILS 4 0 - 7 % INTERFAC E SYSTEM BASOPHILS 1 0 - 2 % INTERFACE SYSTEM NEUTROPHIL ABSOLUTE 2.55 1.90 - 7.00 K/uL INTERFACE SYSTEM LYMPHOCYTE ABSOLUTE 1.90 0.70 - 4.50 K/uL INTERFACE SYSTEM MONOCYTE ABSOLUTE 0.64 0.10 - 1.30 K/uL INTERFACE SYSTEM EOSINOPHIL ABSOLUTE 0.23 0.00 - 0.70 K/uL INTERFACE SYSTEM BASOPHILS ABSOLUTE 0.03 0.00 - 0.20 K/uL INTERFACE SYSTEM 02/28/2006 5:00 AM CDT Sushil Arroyo MD HEMATOLOGY ORDERABLES Final Result Performing Organization Address [facility] Phone Number INTERFACE SYSTEM Refer to clinic/hospital department * (ABNORMAL) CBC WITH DIFFERENTIAL (02/28/2006 5:00 AM CDT) WBC 5.4 4.0 - 9.8 K/uL INTERFACE SYSTEM RBC 3.96(L) 4.50 - 5.40 M/uL INTERFACE SYSTEM HEMOGLOBIN 11.8(L) 13.6 - 16.5 g/dL INTERFACE SYSTEM HEMATOCRIT 36.3(L) 40.0 - 48.0 % INTERFACE SYSTEM MCV 91.7 82.0 - 99.0 fL INTERFACE SYSTEM MCH 29.8 27.2 - 32.6 pg INTERFACE SYSTEM MCHC 32.5 31.5 - 35.5 % INTERFACE SYSTEM RDW 13.4 11.5 - 14.5 % INTERFACE SYSTEM RDW-STDEV 45.1 37.1 - 48.7 fL INTERFACE SYSTEM PLATELETS 221 140 - 350 K/uL INTERFACE SYSTEM MPV 10.6 9.3 - 12.4 fL INTERFACE SYSTEM 02/28/2006 5:00 AM CDT Sushil Arroyo MD HEMATOLOGY ORDERABLES Final Result Performing Organization Address City/[facility] Co de Phone Number INTERFACE SYSTEM Refer to clinic/hospital department * (ABNORMAL) CBC WITH DIFFERENTIAL (02/26/2006 12:44 PM CDT) NEUTROPHILS 73(H) 45 - 70 % INTERFAC E SYSTEM LYMPHOCYTES 18 16 - 45 % INTERFAC E SYSTEM MONOCYTES 7 3 - 13 % INTERFACE SYSTEM EOSINOPHILS 3 0 - 7 % INTERFAC E SYSTEM BASOPHILS 0 0 - 2 % INTERFACE SYSTEM NEUTROPHIL ABSOLUTE 4.23 1.90 - 7.00 K/uL INTERFACE SYSTEM LYMPHOCYTE ABSOLUTE 1.03 0.70 - 4.50 K/uL INTERFACE SYSTEM MONOCYTE ABSOLUTE 0.39 0.10 - 1.30 K/uL INTERFACE SYSTEM EOSINOPHIL ABSOLUTE 0.15 0.00 - 0.70 K/uL INTERFACE SYSTEM BASOPHILS ABSOLUTE 0.02 0.00 - 0.20 K/uL INTERFACE SYSTEM 02/26/2006 12:4 4 PM CDT Tho Mar HEMATOLOGY ORDERABLES Final Re sult INTERFACE SYSTEM Refer to clinic/hospital department * (ABNORMAL) CBC WITH DIFFERENTIAL (02/26/2006 12:44 PM CDT) WBC 5.8 4.0 - 9.8 K/uL INTERFACE SYSTEM RBC 4.43(L) 4.50 - 5.40 M/uL INTERFACE SYSTEM HEMOGLOBIN 13.3(L) 13.6 - 16.5 g/dL INTERFACE SYSTEM HEMATOCRIT 40.7 40.0 - 48.0 % INTERFACE SYSTEM MCV 91.9 82.0 - 99.0 fL INTERFACE SYSTEM MCH 30.0 27.2 - 32.6 pg INTERFACE SYSTEM MCHC 32.7 31.5 - 35.5 % INTERFACE SYSTEM RDW 13.1 11.5 - 14.5 % INTERFACE SYSTEM RDW-STDEV 44.0 37.1 - 48.7 fL INTERFACE SYSTEM PLATELETS 216 140 - 350 K/uL INTERFACE SYSTEM MPV 10.5 9.3 - 12.4 fL INTERFACE SYSTEM 02/26/2006 12:4 4 PM CDT [facility] HEMATOLOGY ORDERABLES Final Re sult Performing Organization Address City/[facility] de Phone Number INTERFACE SYSTEM Refer to clinic/hospital department * C-REACTIVE PROTEIN (02/26/2006 12:44 PM CDT) CRP 0.2 0.0 - 0.8 mg/dL INTERFACE SYSTEM 02/26/2006 12:4 4 PM CDT [facility] CHEMISTRY ORDERABLES Final Res ult Performing Organization Address [facility] de Phone Number INTERFACE SYSTEM Refer to clinic/hospital department * (ABNORMAL) COMPREHENSIVE METABOLIC PANEL (02/26/2006 12:44 PM CDT) GLUCOSE 216(H) 65 - 99 mg/dL INTERFACE SYSTEM CREATININE 0.8 0.5 - 1.3 mg/dL INTERFACE SYSTEM CALCIUM 9.4 8.6 - 10.2 mg/dL INTERFACE SYSTEM ALKALINE PHOSPHATASE 80 40 - 129 U/L INTERFACE SYSTEM AST 129(H) 12 - 38 U/L INTERFACE SYSTEM ALT 270(H) 0 - 41 U/L INTERFACE SYSTEM TOTAL PROTEIN 6.7 6.3 - 8.6 g/dL INTERFACE SYSTEM ALBUMIN 4.1 3.4 - 4.8 g/dL INTERFACE SYSTEM BILIRUBIN TOTAL 0.5 0.2 - 1.0 mg/dL INTERFACE SYSTEM BUN 11 6 - 20 mg/dL INTERFACE SYSTEM SODIUM 144 135 - 145 mmol/L INTERFACE SYSTEM POTASSIUM 3.6 3.5 - 4.9 mmol/L INTERFACE SYSTEM CHLORIDE 103 96 - 108 mmol/L INTERFACE SYSTEM CO2 29 22 - 30 mmol/L INTERFACE SYSTEM 02/26/2006 12:4 4 PM CDT Tho Mar CHEMISTRY ORDERABLES Final Res ult Performing Organization Address [facility] Phone Number INTERFACE SYSTEM Refer to clinic/hospital department * (ABNORMAL) URINALYSIS (02/25/2006 4:21 PM CDT) COLOR UA Yellow INTERFACE SYSTEM CLARITY UA Slt. Cloudy(A) Clear INTERFACE SYSTEM SPECIFIC GRAVITY UA 1.015 1.001 - 1.035 INTERFACE SYSTEM PH UA 7.0 5.0 - 8.0 INTERFACE SYSTEM LEUKOCYTE ESTERASE UA Negative Negative INTERFACE SYSTEM NITRITE UA Negative Negative INTERFACE SYSTEM PROTEIN UA Trace(A) Negative INTERFACE SYSTEM GLUCOSE UA Negative Negative INTERFACE SYSTEM KETONES UA Negative Negative INTERFACE SYSTEM UROBILINOGEN UA 4(H) <=1 mg/dL INTE RFACE SYSTEM BILIRUBIN UA Negative Negative INTERFA CE SYSTEM BLOOD UA 2+(A) Negative INTERFACE SYSTEM WBC UA 5(H) 0 - 3 /HPF INTERFACE SYSTEM RBC UA 29(H) 0 - 3 /HPF INTERFACE SYSTEM HYALINE CAST 2 0 - 2 /LPF INTERF DEANDRE SYSTEM 02/25/2006 4:21 PM CDT Sushil Arroyo MD URINE ORDERABLES Final Resul t Performing Organization Address [facility] Phone Number INTERFACE SYSTEM Refer to clinic/hospital department * (ABNORMAL) CBC WITH DIFFERENTIAL (02/25/2006 4:36 AM CDT) NEUTROPHILS 43(L) 45 - 70 % INTERFAC E SYSTEM LYMPHOCYTES 39 16 - 45 % INTERFAC E SYSTEM MONOCYTES 13 3 - 13 % INTERFACE SYSTEM EOSINOPHILS 5 0 - 7 % INTERFAC E SYSTEM BASOPHILS 1 0 - 2 % INTERFACE SYSTEM NEUTROPHIL ABSOLUTE 1.96 1.90 - 7.00 K/uL INTERFACE SYSTEM LYMPHOCYTE ABSOLUTE 1.80 0.70 - 4.50 K/uL INTERFACE SYSTEM MONOCYTE ABSOLUTE 0.59 0.10 - 1.30 K/uL INTERFACE SYSTEM EOSINOPHIL ABSOLUTE 0.21 0.00 - 0.70 K/uL INTERFACE SYSTEM BASOPHILS ABSOLUTE 0.03 0.00 - 0.20 K/uL INTERFACE SYSTEM 02/25/2006 4:36 AM CDT [facility] HEMATOLOGY ORDERABLES Final Re sult Performing Organization Address [facility] de Phone Number INTERFACE SYSTEM Refer to clinic/hospital department * (ABNORMAL) CBC WITH DIFFERENTIAL (02/25/2006 4:36 AM CDT) WBC 4.6 4.0 - 9.8 K/uL INTERFACE SYSTEM RBC 4.06(L) 4.50 - 5.40 M/uL INTERFACE SYSTEM HEMOGLOBIN 12.0(L) 13.6 - 16.5 g/dL INTERFACE SYSTEM HEMATOCRIT 37.5(L) 40.0 - 48.0 % INTERFACE SYSTEM MCV 92.4 82.0 - 99.0 fL INTERFACE SYSTEM MCH 29.6 27.2 - 32.6 pg INTERFACE SYSTEM MCHC 32.0 31.5 - 35.5 % INTERFACE SYSTEM RDW 13.2 11.5 - 14.5 % INTERFACE SYSTEM RDW-STDEV 44.1 37.1 - 48.7 fL INTERFACE SYSTEM PLATELETS 206 140 - 350 K/uL INTERFACE SYSTEM MPV 11.0 9.3 - 12.4 fL INTERFACE SYSTEM 02/25/2006 4:36 AM CDT [facility] HEMATOLOGY ORDERABLES Final Re sult Performing Organization Address [facility] Phone Number INTERFACE SYSTEM Refer to clinic/hospital department * (ABNORMAL) COMPREHENSIVE METABOLIC PANEL (02/25/2006 4:36 AM CDT) GLUCOSE 95 65 - 99 mg/dL INTERFACE SYSTEM CREATININE 0.8 0.5 - 1.3 mg/dL INTERFACE SYSTEM CALCIUM 8.8 8.6 - 10.2 mg/dL INTERFACE SYSTEM ALKALINE PHOSPHATASE 68 40 - 129 U/L INTERFACE SYSTEM AST 133(H) 12 - 38 U/L INTERFACE SYSTEM ALT 238(H) 0 - 41 U/L INTERFACE SYSTEM TOTAL PROTEIN 6.0(L) 6.3 - 8.6 g/dL INTERFACE SYSTEM ALBUMIN 3.5 3.4 - 4.8 g/dL INTERFACE SYSTEM BILIRUBIN TOTAL 0.4 0.2 - 1.0 mg/dL INTERFACE SYSTEM BUN 11 6 - 20 mg/dL INTERFACE SYSTEM SODIUM 142 135 - 145 mmol/L INTERFACE SYSTEM POTASSIUM 3.6 3.5 - 4.9 mmol/L INTERFACE SYSTEM CHLORIDE 103 96 - 108 mmol/L INTERFACE SYSTEM CO2 28 22 - 30 mmol/L INTERFACE SYSTEM 02/25/2006 4:36 AM CDT [facility] Zaid CHEMISTRY ORDERABLES Final Res ult Performing Organization Address [facility] Phone Number INTERFACE SYSTEM Refer to clinic/hospital department * C-REACTIVE PROTEIN (02/25/2006 4:36 AM CDT) CRP 0.2 0.0 - 0.8 mg/dL INTERFACE SYSTEM 02/25/2006 4:36 AM CDT [facility] CHEMISTRY ORDERABLES Final Res ult Performing Organization Address [facility] Phone Number INTERFACE SYSTEM Refer to clinic/hospital department * (ABNORMAL) URINALYSIS (02/22/2006 7:44 PM CDT) COLOR UA Yellow INTERFACE SYSTEM CLARITY UA Slt. Cloudy(A) Clear INTERFACE SYSTEM SPECIFIC GRAVITY UA 1.015 1.001 - 1.035 INTERFACE SYSTEM PH UA 6.5 5.0 - 8.0 INTERFACE SYSTEM LEUKOCYTE ESTERASE UA Negative Negative INTERFACE SYSTEM NITRITE UA Negative Negative INTERFACE SYSTEM PROTEIN UA Trace(A) Negative INTERFACE SYSTEM GLUCOSE UA Negative Negative INTERFACE SYSTEM KETONES UA Negative Negative INTERFACE SYSTEM UROBILINOGEN UA 2(H) <=1 mg/dL INTE RFACE SYSTEM BILIRUBIN UA Negative Negative INTERFA CE SYSTEM BLOOD UA Negative Negative INTERFACE SYSTEM WBC UA 1 0 - 3 /HPF INTERFACE SYSTEM RBC UA 3 0 - 3 /HPF INTERFACE SYSTEM AMORPHOUS CRYSTAL Few /HPF INTERFACE SYSTEM 02/22/2006 7:44 PM CDT Keenan Mandujano MD URINE ORDERABLES Final Result Performing Organization Address [facility] Phone Number INTERFACE SYSTEM Refer to clinic/hospital department * (ABNORMAL) PT AND APTT (02/15/2006 8:45 PM CDT) PROTIME 17.7(H) 12.7 - 15.1 Seconds INTERFACE SYSTEM INR 1.4(H) 0.9 - 1.1 INTERFACE SYSTEM Comment: INR Therapeutic Range: Adult: 2.0 - 3.0 for pulmonary embolism or prophylaxis against venous thrombosis or systemic embolization. 2.0 - 3.0 for patients with tissue heart valves. 2.5 - 3.5 for patients with mechanical heart valves or post DE. Pediatric (12 years and under): 1.5 - 3.0 Although the target range in children is not well established , INR values of 1.5 - 3.0 are recommended for most patients. Higher values have been used in children with prosthetic cardiac valves and hereditary clotting disorders. (<3 days) therapeutic ranges have not been established. PTT 38.3(H) 24.4 - 36.4 Seconds INTERFACE SYSTEM Comment: PTT Therapeutic Range: Heparin Level PTT (seconds) <0.10 units/mL <53 0.10 - 0.30 units/mL 53 - 67 0.30 - 0.70 units/mL* 67 - 95* 0.70 - 1.00 units/mL 95 - 116 *corresponds to therapeutic range for unfractionated heparin 02/15/2006 8:45 PM CDT Aman Gottlieb DO HEMATOLOGY ORDERABLES Final R esult INTERFACE SYSTEM Refer to clinic/hospital department * (ABNORMAL) PROTIME-INR (02/15/2006 5:12 AM CDT) PROTIME 19.1(H) 12.7 - 15.1 Seconds INTERFACE SYSTEM INR 1.5(H) 0.9 - 1.1 INTERFACE SYSTEM Comment: INR Therapeutic Range: Adult: 2.0 - 3.0 for pulmonary embolism or prophylaxis against venous thrombosis or systemic embolization. 2.0 - 3.0 for patients with tissue heart valves. 2.5 - 3.5 for patients with mechanical heart valves or post DE. Pediatric (12 years and under): 1.5 - 3.0 Although the target range in children is not well established , INR values of 1.5 - 3.0 are recommended for most patients. Higher values have been used in children with prosthetic cardiac valves and hereditary clotting disorders. (<3 days) therapeutic ranges have not been established. 02/15/2006 5:12 AM CDT Sushil Arroyo MD HEMATOLOGY ORDERABLES Final Result Performing Organization Address [facility] Phone Number INTERFACE SYSTEM Refer to clinic/hospital department * (ABNORMAL) PROTIME-INR (02/12/2006 4:54 AM CDT) PROTIME 25.7(H) 12.7 - 15.1 Seconds INTERFACE SYSTEM INR 2.2(H) 0.9 - 1.1 INTERFACE SYSTEM Comment: INR Therapeutic Range: Adult: 2.0 - 3.0 for pulmonary embolism or prophylaxis against venous thrombosis or systemic embolization. 2.0 - 3.0 for patients with tissue heart valves. 2.5 - 3.5 for patients with mechanical heart valves or post DE. Pediatric (12 years and under): 1.5 - 3.0 Although the target range in children is not well established , INR values of 1.5 - 3.0 are recommended for most patients. Higher values have been used in children with prosthetic cardiac valves and hereditary clotting disorders. (<3 days) therapeutic ranges have not been established. 02/12/2006 4:54 AM CDT Sushil Arroyo MD HEMATOLOGY ORDERABLES Final Result Performing Organization Address [facility] Phone Number INTERFACE SYSTEM Refer to clinic/hospital department * (ABNORMAL) URINALYSIS (02/11/2006 6:20 PM CDT) COLOR UA Mindy INTERFACE SYSTEM CLARITY UA Clear Clear INTERFACE SYSTEM SPECIFIC GRAVITY UA 1.030 1.001 - 1.035 INTERFACE SYSTEM PH UA 6.0 5.0 - 8.0 INTERFACE SYSTEM LEUKOCYTE ESTERASE UA 1+(A) Negative INTERFACE SYSTEM NITRITE UA Negative Negative INTERFACE SYSTEM PROTEIN UA 1+(A) Negative INTERFACE SYSTEM GLUCOSE UA Negative Negative INTERFACE SYSTEM KETONES UA Trace(A) Negative INTERFACE SYSTEM UROBILINOGEN UA 4(H) <=1 mg/dL INTE RFACE SYSTEM BILIRUBIN UA 1+(A) Negative INTERFA CE SYSTEM BLOOD UA Negative Negative INTERFACE SYSTEM WBC UA <1 0 - 3 /HPF INTERFACE SYSTEM RBC UA 3 0 - 3 /HPF INTERFACE SYSTEM 02/11/2006 6:20 PM CDT Sushil Arroyo MD URINE ORDERABLES Final Resul t Performing Organization Address [facility] Phone Number INTERFACE SYSTEM Refer to clinic/hospital department * (ABNORMAL) PROTIME-INR (02/10/2006 5:00 AM CDT) PROTIME 28.8(H) 12.7 - 15.1 Seconds INTERFACE SYSTEM INR 2.6(H) 0.9 - 1.1 INTERFACE SYSTEM Comment: INR Therapeutic Range: Adult: 2.0 - 3.0 for pulmonary embolism or prophylaxis against venous thrombosis or systemic embolization. 2.0 - 3.0 for patients with tissue heart valves. 2.5 - 3.5 for patients with mechanical heart valves or post DE. Pediatric (12 years and under): 1.5 - 3.0 Although the target range in children is not well established , INR values of 1.5 - 3.0 are recommended for most patients. Higher values have been used in children with prosthetic cardiac valves and hereditary clotting disorders. (<3 days) therapeutic ranges have not been established. 02/10/2006 5:00 AM CDT Sushil Arroyo MD HEMATOLOGY ORDERABLES Final Result Performing Organization Address City/[facility] Phone Number INTERFACE SYSTEM Refer to clinic/hospital department * (ABNORMAL) PROTIME-INR (02/09/2006 4:50 AM CDT) PROTIME 28.8(H) 12.7 - 15.1 Seconds INTERFACE SYSTEM INR 2.6(H) 0.9 - 1.1 INTERFACE SYSTEM Comment: INR Therapeutic Range: Adult: 2.0 - 3.0 for pulmonary embolism or prophylaxis against venous thrombosis or systemic embolization. 2.0 - 3.0 for patients with tissue heart valves. 2.5 - 3.5 for patients with mechanical heart valves or post DE. Pediatric (12 years and under): 1.5 - 3.0 Although the target range in children is not well established , INR values of 1.5 - 3.0 are recommended for most patients. Higher values have been used in children with prosthetic cardiac valves and hereditary clotting disorders. (<3 days) therapeutic ranges have not been established. 02/09/2006 4:50 AM CDT Sushil Arroyo MD HEMATOLOGY ORDERABLES Final Result Performing Organization Address [facility] de Phone Number INTERFACE SYSTEM Refer to clinic/hospital department * (ABNORMAL) URINALYSIS (02/09/2006 1:34 AM CDT) COLOR UA Yellow INTERFACE SYSTEM CLARITY UA Clear Clear INTERFACE SYSTEM SPECIFIC GRAVITY UA 1.010 1.001 - 1.035 INTERFACE SYSTEM PH UA 5.5 5.0 - 8.0 INTERFACE SYSTEM LEUKOCYTE ESTERASE [...] - 3 /HPF INTERFACE SYSTEM RBC UA 1 0 - 3 /HPF INTERFACE SYSTEM 02/09/2006 1:34 AM CDT Sushil Arroyo MD URINE ORDERABLES Final Resul t Performing Organization Address [facility] de Phone Number INTERFACE SYSTEM Refer to clinic/hospital department * (ABNORMAL) PROTIME-INR (02/08/2006 4:58 AM CDT) PROTIME 32.3(H) 12.7 - 15.1 Seconds INTERFACE SYSTEM INR 3.0(H) 0.9 - 1.1 INTERFACE SYSTEM Comment: INR Therapeutic Range: Adult: 2.0 - 3.0 for pulmonary embolism or prophylaxis against venous thrombosis or systemic embolization. 2.0 - 3.0 for patients with tissue heart valves. 2.5 - 3.5 for patients with mechanical heart valves or post DE. Pediatric (12 years and under): 1.5 - 3.0 Although the target range in children is not well established , INR values of 1.5 - 3.0 are recommended for most patients. Higher values have been used in children with prosthetic cardiac valves and hereditary clotting disorders. (<3 days) therapeutic ranges have not been established. 02/08/2006 4:58 AM CDT Keenan Mandujano MD HEMATOLOGY ORDERABLES Final Res ult Performing Organization Address [facility] Phone Number INTERFACE SYSTEM Refer to clinic/hospital department * (ABNORMAL) PROTIME-INR (02/07/2006 4:45 AM CDT) PROTIME 33.9(H) 12.7 - 15.1 Seconds INTERFACE SYSTEM INR 3.2(H) 0.9 - 1.1 INTERFACE SYSTEM Comment: INR Therapeutic Range: Adult: 2.0 - 3.0 for pulmonary embolism or prophylaxis against venous thrombosis or systemic embolization. 2.0 - 3.0 for patients with tissue heart valves. 2.5 - 3.5 for patients with mechanical heart valves or post DE. Pediatric (12 years and under): 1.5 - 3.0 Although the target range in children is not well established , INR values of 1.5 - 3.0 are recommended for most patients. Higher values have been used in children with prosthetic cardiac valves and hereditary clotting disorders. (<3 days) therapeutic ranges have not been established. 02/07/2006 4:45 AM CDT Keenan Mandujano MD HEMATOLOGY ORDERABLES Final Res ult Performing Organization Address [facility] Phone Number INTERFACE SYSTEM Refer to clinic/hospital department * (ABNORMAL) PROTIME-INR (02/06/2006 5:05 AM CDT) PROTIME 34.7(H) 12.7 - 15.1 Seconds INTERFACE SYSTEM INR 3.3(H) 0.9 - 1.1 INTERFACE SYSTEM Comment: INR Therapeutic Range: Adult: 2.0 - 3.0 for pulmonary embolism or prophylaxis against venous thrombosis or systemic embolization. 2.0 - 3.0 for patients with tissue heart valves. 2.5 - 3.5 for patients with mechanical heart valves or post DE. Pediatric (12 years and under): 1.5 - 3.0 Although the target range in children is not well established , INR values of 1.5 - 3.0 are recommended for most patients. Higher values have been used in children with prosthetic cardiac valves and hereditary clotting disorders. (<3 days) therapeutic ranges have not been established. 02/06/2006 5:05 AM CDT us Sushil Arroyo MD HEMATOLOGY ORDERABLES Final Result Performing Organization Address [facility] de Phone Number INTERFACE SYSTEM Refer to clinic/hospital department * (ABNORMAL) CBC WITH DIFFERENTIAL (02/06/2006 1:25 AM CDT) NEUTROPHILS 75(H) 45 - 70 % INTERFAC E SYSTEM LYMPHOCYTES 12(L) 16 - 45 % INTERFAC E SYSTEM MONOCYTES 11 3 - 13 % INTERFACE SYSTEM EOSINOPHILS 1 0 - 7 % INTERFAC E SYSTEM BASOPHILS 0 0 - 2 % INTERFACE SYSTEM NEUTROPHIL ABSOLUTE 6.74 1.90 - 7.00 K/uL INTERFACE SYSTEM LYMPHOCYTE ABSOLUTE 1.11 0.70 - 4.50 K/uL INTERFACE SYSTEM MONOCYTE ABSOLUTE 1.01 0.10 - 1.30 K/uL INTERFACE SYSTEM EOSINOPHIL ABSOLUTE 0.08 0.00 - 0.70 K/uL INTERFACE SYSTEM BASOPHILS ABSOLUTE 0.01 0.00 - 0.20 K/uL INTERFACE SYSTEM 02/06/2006 1:25 AM CDT Keenan Mandujano MD HEMATOLOGY ORDERABLES Final Res ult Performing Organization Address [facility] Co de Phone Number INTERFACE SYSTEM Refer to clinic/hospital department * (ABNORMAL) CBC WITH DIFFERENTIAL (02/06/2006 1:25 AM CDT) WBC 9.0 4.0 - 9.8 K/uL INTERFACE SYSTEM RBC 3.75(L) 4.50 - 5.40 M/uL INTERFACE SYSTEM HEMOGLOBIN 11.2(L) 13.6 - 16.5 g/dL INTERFACE SYSTEM HEMATOCRIT 34.3(L) 40.0 - 48.0 % INTERFACE SYSTEM MCV 91.5 82.0 - 99.0 fL INTERFACE SYSTEM MCH 29.9 27.2 - 32.6 pg INTERFACE SYSTEM MCHC 32.7 31.5 - 35.5 % INTERFACE SYSTEM RDW 12.7 11.5 - 14.5 % INTERFACE SYSTEM RDW-STDEV 42.8 37.1 - 48.7 fL INTERFACE SYSTEM PLATELETS 259 140 - 350 K/uL INTERFACE SYSTEM MPV 9.8 9.3 - 12.4 fL INTERFACE SYSTEM 02/06/2006 1:25 AM CDT us Keenan Mandujano MD HEMATOLOGY ORDERABLES Final Res ult Performing Organization Address City/[facility] Co de Phone Number INTERFACE SYSTEM Refer to clinic/hospital department * (ABNORMAL) PROTIME-INR (02/05/2006 6:30 AM CDT) PROTIME 32.3(H) 12.7 - 15.1 Seconds INTERFACE SYSTEM INR 3.0(H) 0.9 - 1.1 INTERFACE SYSTEM Comment: INR Therapeutic Range: Adult: 2.0 - 3.0 for pulmonary embolism or prophylaxis against venous thrombosis or systemic embolization. 2.0 - 3.0 for patients with tissue heart valves. 2.5 - 3.5 for patients with mechanical heart valves or post DE. Pediatric (12 years and under): 1.5 - 3.0 Although the target range in children is not well established , INR values of 1.5 - 3.0 are recommended for most patients. Higher values have been used in children with prosthetic cardiac valves and hereditary clotting disorders. (<3 days) therapeutic ranges have not been established. 02/05/2006 6:30 AM CDT us Sushil Arroyo MD HEMATOLOGY ORDERABLES Final Result Performing Organization Address City/[facility]/ZIP Co de Phone Number INTERFACE SYSTEM Refer to clinic/hospital department * (ABNORMAL) URINALYSIS (02/04/2006 2:48 PM CDT) COLOR UA Yellow INTERFACE SYSTEM CLARITY UA Slt. Cloudy(A) Clear INTERFACE SYSTEM SPECIFIC GRAVITY UA 1.010 1.001 - 1.035 INTERFACE SYSTEM PH UA 6.0 5.0 - 8.0 INTERFACE SYSTEM LEUKOCYTE ESTERASE UA 3+(A) Negative INTERFACE SYSTEM NITRITE UA Positive(A) Negative INTERFA CE SYSTEM PROTEIN UA Trace(A) Negative INTERFACE SYSTEM GLUCOSE UA Negative Negative INTERFACE SYSTEM KETONES UA Negative Negative INTERFACE SYSTEM UROBILINOGEN UA <1 <=1 mg/dL INTE RFACE SYSTEM BILIRUBIN UA Negative Negative INTERFA CE SYSTEM BLOOD UA 3+(A) Negative INTERFACE SYSTEM WBC UA >100(H) 0 - 3 /HPF INTERFACE SYSTEM RBC UA 47(H) 0 - 3 /HPF INTERFACE SYSTEM BACTERIA UA 2+(A) None Seen /HPF INTERFACE SYSTEM 02/04/2006 2:48 PM CDT Sushil Arroyo MD URINE ORDERABLES Final Resul t Performing Organization Address [facility] Phone Number INTERFACE SYSTEM Refer to clinic/hospital department * (ABNORMAL) CBC WITH DIFFERENTIAL (02/04/2006 1:15 PM CDT) NEUTROPHILS 75(H) 45 - 70 % INTERFAC E SYSTEM LYMPHOCYTES 13(L) 16 - 45 % INTERFAC E SYSTEM MONOCYTES 12 3 - 13 % INTERFACE SYSTEM EOSINOPHILS 1 0 - 7 % INTERFAC E SYSTEM BASOPHILS 0 0 - 2 % INTERFACE SYSTEM NEUTROPHIL ABSOLUTE 7.93(H) 1.90 - 7.00 K/uL INTERFACE SYSTEM LYMPHOCYTE ABSOLUTE 1.34 0.70 - 4.50 K/uL INTERFACE SYSTEM MONOCYTE ABSOLUTE 1.22 0.10 - 1.30 K/uL INTERFACE SYSTEM EOSINOPHIL ABSOLUTE 0.10 0.00 - 0.70 K/uL INTERFACE SYSTEM BASOPHILS ABSOLUTE 0.02 0.00 - 0.20 K/uL INTERFACE SYSTEM 02/04/2006 1:15 PM CDT Sushil Arroyo MD HEMATOLOGY ORDERABLES Final Result Performing Organization Address [facility] Phone Number INTERFACE SYSTEM Refer to clinic/hospital department * (ABNORMAL) CBC WITH DIFFERENTIAL (02/04/2006 1:15 PM CDT) WBC 10.6(H) 4.0 - 9.8 K/uL INTERFACE SYSTEM RBC 3.51(L) 4.50 - 5.40 M/uL INTERFACE SYSTEM HEMOGLOBIN 10.4(L) 13.6 - 16.5 g/dL INTERFACE SYSTEM HEMATOCRIT 32.1(L) 40.0 - 48.0 % INTERFACE SYSTEM MCV 91.5 82.0 - 99.0 fL INTERFACE SYSTEM MCH 29.6 27.2 - 32.6 pg INTERFACE SYSTEM MCHC 32.4 31.5 - 35.5 % INTERFACE SYSTEM RDW 12.7 11.5 - 14.5 % INTERFACE SYSTEM RDW-STDEV 42.6 37.1 - 48.7 fL INTERFACE SYSTEM PLATELETS 271 140 - 350 K/uL INTERFACE SYSTEM MPV 9.9 9.3 - 12.4 fL INTERFACE SYSTEM 02/04/2006 1:15 PM CDT Sushil Arroyo MD HEMATOLOGY ORDERABLES Final Result Performing Organization Address [facility] de Phone Number INTERFACE SYSTEM Refer to clinic/hospital department * (ABNORMAL) COMPREHENSIVE METABOLIC PANEL (02/04/2006 1:15 PM CDT) GLUCOSE 103(H) 65 - 99 mg/dL INTERFACE SYSTEM CREATININE 0.8 0.5 - 1.3 mg/dL INTERFACE SYSTEM CALCIUM 8.5(L) 8.6 - 10.2 mg/dL INTERFACE SYSTEM ALKALINE PHOSPHATASE 82 40 - 129 U/L INTERFACE SYSTEM AST 38 12 - 38 U/L INTERFACE SYSTEM ALT 49(H) 0 - 41 U/L INTERFACE SYSTEM TOTAL PROTEIN 5.8(L) 6.3 - 8.6 g/dL INTERFACE SYSTEM ALBUMIN 3.4 3.4 - 4.8 g/dL INTERFACE SYSTEM BILIRUBIN TOTAL 0.5 0.2 - 1.0 mg/dL INTERFACE SYSTEM BUN 16 6 - 20 mg/dL INTERFACE SYSTEM SODIUM 137 135 - 145 mmol/L INTERFACE SYSTEM POTASSIUM 4.0 3.5 - 4.9 mmol/L INTERFACE SYSTEM CHLORIDE 103 96 - 108 mmol/L INTERFACE SYSTEM CO2 28 22 - 30 mmol/L INTERFACE SYSTEM 02/04/2006 1:15 PM CDT Sushil Arroyo MD CHEMISTRY ORDERABLES Final R esult Performing Organization Address City/[facility]/ZIP Co de Phone Number INTERFACE SYSTEM Refer to clinic/hospital department * (ABNORMAL) PROTIME-INR (02/04/2006 4:43 AM CDT) PROTIME 37.6(H) 12.7 - 15.1 Seconds INTERFACE SYSTEM INR 3.7(H) 0.9 - 1.1 INTERFACE SYSTEM Comment: INR Therapeutic Range: Adult: 2.0 - 3.0 for pulmonary embolism or prophylaxis against venous thrombosis or systemic embolization. 2.0 - 3.0 for patients with tissue heart valves. 2.5 - 3.5 for patients with mechanical heart valves or post DE. Pediatric (12 years and under): 1.5 - 3.0 Although the target range in children is not well established , INR values of 1.5 - 3.0 are recommended for most patients. Higher values have been used in children with prosthetic cardiac valves and hereditary clotting disorders. (<3 days) therapeutic ranges have not been established. 02/04/2006 4:43 AM CDT Sushil Arroyo MD HEMATOLOGY ORDERABLES Final Result Performing Organization Address City/State/[facility] Co de Phone Number INTERFACE SYSTEM Refer to clinic/hospital department * (ABNORMAL) PROTIME-INR (02/02/2006 4:47 AM CDT) PROTIME 29.2(H) 12.7 - 15.1 Seconds INTERFACE SYSTEM INR 2.7(H) 0.9 - 1.1 INTERFACE SYSTEM Comment: INR Therapeutic Range: Adult: 2.0 - 3.0 for pulmonary embolism or prophylaxis against venous thrombosis or systemic embolization. 2.0 - 3.0 for patients with tissue heart valves. 2.5 - 3.5 for patients with mechanical heart valves or post DE. Pediatric (12 years and under): 1.5 - 3.0 Although the target range in children is not well established , INR values of 1.5 - 3.0 are recommended for most patients. Higher values have been used in children with prosthetic cardiac valves and hereditary clotting disorders. (<3 days) therapeutic ranges have not been established. 02/02/2006 4:47 AM CDT Pablo De La Rosa MD HEMATOLOGY ORDERABLES Final Resu lt Performing Organization Address City/[facility] de Phone Number INTERFACE SYSTEM Refer to clinic/hospital department * CBC WITH DIFFERENTIAL (01/31/2006 4:50 AM CDT) NEUTROPHILS 59 45 - 70 % INTERFAC E SYSTEM LYMPHOCYTES 22 16 - 45 % INTERFAC E SYSTEM MONOCYTES 13 3 - 13 % INTERFACE SYSTEM EOSINOPHILS 6 0 - 7 % INTERFAC E SYSTEM BASOPHILS 1 0 - 2 % INTERFACE SYSTEM NEUTROPHIL ABSOLUTE 3.70 1.90 - 7.00 K/uL INTERFACE SYSTEM LYMPHOCYTE ABSOLUTE 1.37 0.70 - 4.50 K/uL INTERFACE SYSTEM MONOCYTE ABSOLUTE 0.80 0.10 - 1.30 K/uL INTERFACE SYSTEM EOSINOPHIL ABSOLUTE 0.35 0.00 - 0.70 K/uL INTERFACE SYSTEM BASOPHILS ABSOLUTE 0.03 0.00 - 0.20 K/uL INTERFACE SYSTEM 01/31/2006 4:50 AM CDT Keenan Mandujano MD HEMATOLOGY ORDERABLES Final Res ult Performing Organization Address [facility] de Phone Number INTERFACE SYSTEM Refer to clinic/hospital department * (ABNORMAL) CBC WITH DIFFERENTIAL (01/31/2006 4:50 AM CDT) WBC 6.3 4.0 - 9.8 K/uL INTERFACE SYSTEM RBC 3.65(L) 4.50 - 5.40 M/uL INTERFACE SYSTEM HEMOGLOBIN 11.0(L) 13.6 - 16.5 g/dL INTERFACE SYSTEM HEMATOCRIT 33.4(L) 40.0 - 48.0 % INTERFACE SYSTEM MCV 91.5 82.0 - 99.0 fL INTERFACE SYSTEM MCH 30.1 27.2 - 32.6 pg INTERFACE SYSTEM MCHC 32.9 31.5 - 35.5 % INTERFACE SYSTEM RDW 12.4 11.5 - 14.5 % INTERFACE SYSTEM RDW-STDEV 42.0 37.1 - 48.7 fL INTERFACE SYSTEM PLATELETS 275 140 - 350 K/uL INTERFACE SYSTEM MPV 9.5 9.3 - 12.4 fL INTERFACE SYSTEM 01/31/2006 4:50 AM CDT Keenan Mandujano MD HEMATOLOGY ORDERABLES Final Res ult Performing Organization Address [facility] de Phone Number INTERFACE SYSTEM Refer to clinic/hospital department * (ABNORMAL) PROTIME-INR (01/31/2006 4:50 AM CDT) PROTIME 24.9(H) 12.7 - 15.1 Seconds INTERFACE SYSTEM INR 2.1(H) 0.9 - 1.1 INTERFACE SYSTEM Comment: INR Therapeutic Range: Adult: 2.0 - 3.0 for pulmonary embolism or prophylaxis against venous thrombosis or systemic embolization. 2.0 - 3.0 for patients with tissue heart valves. 2.5 - 3.5 for patients with mechanical heart valves or post DE. Pediatric (12 years and under): 1.5 - 3.0 Although the target range in children is not well established , INR values of 1.5 - 3.0 are recommended for most patients. Higher values have been used in children with prosthetic cardiac valves and hereditary clotting disorders. (<3 days) therapeutic ranges have not been established. 01/31/2006 4:50 AM CDT Keenan Mandujano MD HEMATOLOGY ORDERABLES Final Res ult Performing Organization Address [facility] Phone Number INTERFACE SYSTEM Refer to clinic/hospital department * (ABNORMAL) PROTIME-INR (01/29/2006 4:44 AM CDT) PROTIME 22.2(H) 12.7 - 15.1 Seconds INTERFACE SYSTEM INR 1.8(H) 0.9 - 1.1 INTERFACE SYSTEM Comment: INR Therapeutic Range: Adult: 2.0 - 3.0 for pulmonary embolism or prophylaxis against venous thrombosis or systemic embolization. 2.0 - 3.0 for patients with tissue heart valves. 2.5 - 3.5 for patients with mechanical heart valves or post DE. Pediatric (12 years and under): 1.5 - 3.0 Although the target range in children is not well established , INR values of 1.5 - 3.0 are recommended for most patients. Higher values have been used in children with prosthetic cardiac valves and hereditary clotting disorders. (<3 days) therapeutic ranges have not been established. 01/29/2006 4:44 AM CDT Keenan Mandujano MD HEMATOLOGY ORDERABLES Final Res t Performing Organization Address [facility] Phone Number INTERFACE SYSTEM Refer to clinic/hospital department * (ABNORMAL) PROTIME-INR (01/28/2006 4:52 AM CDT) PROTIME 23.6(H) 12.7 - 15.1 Seconds INTERFACE SYSTEM INR 2.0(H) 0.9 - 1.1 INTERFACE SYSTEM Comment: INR Therapeutic Range: Adult: 2.0 - 3.0 for pulmonary embolism or prophylaxis against venous thrombosis or systemic embolization. 2.0 - 3.0 for patients with tissue heart valves. 2.5 - 3.5 for patients with mechanical heart valves or post DE. Pediatric (12 years and under): 1.5 - 3.0 Although the target range in children is not well established , INR values of 1.5 - 3.0 are recommended for most patients. Higher values have been used in children with prosthetic cardiac valves and hereditary clotting disorders. (<3 days) therapeutic ranges have not been established. 01/28/2006 4:52 AM CDT Result [facility] Keenan Mandujano MD HEMATOLOGY ORDERABLES Final [facility] Performing Organization Address [facility] Phone Number INTERFACE SYSTEM Refer to clinic/hospital department * (ABNORMAL) PROTIME-INR (01/26/2006 4:50 AM CDT) PROTIME 25.5(H) 12.7 - 15.1 Seconds INTERFACE SYSTEM INR 2.2(H) 0.9 - 1.1 INTERFACE SYSTEM Comment: INR Therapeutic Range: Adult: 2.0 - 3.0 for pulmonary embolism or prophylaxis against venous thrombosis or systemic embolization. 2.0 - 3.0 for patients with tissue heart valves. 2.5 - 3.5 for patients with mechanical heart valves or post DE. Pediatric (12 years and under): 1.5 - 3.0 Although the target range in children is not well established , INR values of 1.5 - 3.0 are recommended for most patients. Higher values have been used in children with prosthetic cardiac valves and hereditary clotting disorders. (<3 days) therapeutic ranges have not been established. 01/26/2006 4:50 AM CDT Keenan Mandujano MD HEMATOLOGY ORDERABLES Final Res ult Performing Organization Address [facility] Phone Number INTERFACE SYSTEM Refer to clinic/hospital department * (ABNORMAL) PROTIME-INR (01/25/2006 4:51 AM CDT) PROTIME 30.2(H) 12.7 - 15.1 Seconds INTERFACE SYSTEM INR 2.8(H) 0.9 - 1.1 INTERFACE SYSTEM Comment: INR Therapeutic Range: Adult: 2.0 - 3.0 for pulmonary embolism or prophylaxis against venous thrombosis or systemic embolization. 2.0 - 3.0 for patients with tissue heart valves. 2.5 - 3.5 for patients with mechanical heart valves or post DE. Pediatric (12 years and under): 1.5 - 3.0 Although the target range in children is not well established , INR values of 1.5 - 3.0 are recommended for most patients. Higher values have been used in children with prosthetic cardiac valves and hereditary clotting disorders. (<3 days) therapeutic ranges have not been established. 01/25/2006 4:51 AM CDT Keenan Mandujano MD HEMATOLOGY ORDERABLES Final Res ult Performing Organization Address [facility] Phone Number INTERFACE SYSTEM Refer to clinic/hospital department * (ABNORMAL) PROTIME-INR (01/24/2006 5:00 AM CDT) PROTIME 34.3(H) 12.7 - 15.1 Seconds INTERFACE SYSTEM INR 3.3(H) 0.9 - 1.1 INTERFACE SYSTEM Comment: INR Therapeutic Range: Adult: 2.0 - 3.0 for pulmonary embolism or prophylaxis against venous thrombosis or systemic embolization. 2.0 - 3.0 for patients with tissue heart valves. 2.5 - 3.5 for patients with mechanical heart valves or post DE. Pediatric (12 years and under): 1.5 - 3.0 Although the target range in children is not well established , INR values of 1.5 - 3.0 are recommended for most patients. Higher values have been used in children with prosthetic cardiac valves and hereditary clotting disorders. (<3 days) therapeutic ranges have not been established. 01/24/2006 5:00 AM CDT Keenan Mandujano MD HEMATOLOGY ORDERABLES Final Res ult Performing Organization Address [facility] Phone Number INTERFACE SYSTEM Refer to clinic/hospital department * (ABNORMAL) PROTIME-INR (01/23/2006 4:57 AM CDT) PROTIME 36.2(H) 12.7 - 15.1 Seconds INTERFACE SYSTEM INR 3.5(H) 0.9 - 1.1 INTERFACE SYSTEM Comment: INR Therapeutic Range: Adult: 2.0 - 3.0 for pulmonary embolism or prophylaxis against venous thrombosis or systemic embolization. 2.0 - 3.0 for patients with tissue heart valves. 2.5 - 3.5 for patients with mechanical heart valves or post DE. Pediatric (12 years and under): 1.5 - 3.0 Although the target range in children is not well established , INR values of 1.5 - 3.0 are recommended for most patients. Higher values have been used in children with prosthetic cardiac valves and hereditary clotting disorders. (<3 days) therapeutic ranges have not been established. 01/23/2006 4:57 AM CDT Result [facility] Keenan Mandujano MD HEMATOLOGY ORDERABLES Final Res ult Performing Organization Address [facility] Phone Number INTERFACE SYSTEM Refer to clinic/hospital department * (ABNORMAL) PROTIME-INR (01/22/2006 9:20 AM CDT) PROTIME 33.4(H) 12.7 - 15.1 Seconds INTERFACE SYSTEM INR 3.2(H) 0.9 - 1.1 INTERFACE SYSTEM Comment: INR Therapeutic Range: Adult: 2.0 - 3.0 for pulmonary embolism or prophylaxis against venous thrombosis or systemic embolization. 2.0 - 3.0 for patients with tissue heart valves. 2.5 - 3.5 for patients with mechanical heart valves or post DE. Pediatric (12 years and under): 1.5 - 3.0 Although the target range in children is not well established , INR values of 1.5 - 3.0 are recommended for most patients. Higher values have been used in children with prosthetic cardiac valves and hereditary clotting disorders. (<3 days) therapeutic ranges have not been established. 01/22/2006 9:20 AM CDT us Keenan Mandujano MD HEMATOLOGY ORDERABLES Final Res ult Performing Organization Address [facility] Phone Number INTERFACE SYSTEM Refer to clinic/hospital department * (ABNORMAL) BASIC METABOLIC PANEL (01/22/2006 6:50 AM CDT) GLUCOSE 94 65 - 99 mg/dL INTERFACE SYSTEM Comment:Note: Effective November 17, 2005, reference range now reflects a fasting st ate. CREATININE 0.7 0.5 - 1.3 mg/dL INTERFACE SYSTEM CALCIUM 8.0(L) 8.6 - 10.2 mg/dL INTERFACE SYSTEM BUN 16 6 - 20 mg/dL INTERFACE SYSTEM SODIUM 135 135 - 145 mmol/L INTERFACE SYSTEM POTASSIUM 3.6 3.5 - 4.9 mmol/L INTERFACE SYSTEM CHLORIDE 100 96 - 108 mmol/L INTERFACE SYSTEM CO2 26 22 - 30 mmol/L INTERFACE SYSTEM 01/22/2006 6:50 AM CDT us Keenan Mandujano MD CHEMISTRY ORDERABLES Final Resu lt Performing Organization Address [facility] Phone Number INTERFACE SYSTEM Refer to clinic/hospital department * (ABNORMAL) PROTIME-INR (01/20/2006 5:00 AM CDT) PROTIME 22.1(H) 12.7 - 15.1 Seconds INTERFACE SYSTEM INR 1.8(H) 0.9 - 1.1 INTERFACE SYSTEM Comment: INR Therapeutic Range: Adult: 2.0 - 3.0 for pulmonary embolism or prophylaxis against venous thrombosis or systemic embolization. 2.0 - 3.0 for patients with tissue heart valves. 2.5 - 3.5 for patients with mechanical heart valves or post DE. Pediatric (12 years and under): 1.5 - 3.0 Although the target range in children is not well established , INR values of 1.5 - 3.0 are recommended for most patients. Higher values have been used in children with prosthetic cardiac valves and hereditary clotting disorders. (<3 days) therapeutic ranges have not been established. 01/20/2006 5:00 AM CDT Keenan Mandujano MD HEMATOLOGY ORDERABLES Final Res ult Performing Organization Address [facility] Phone Number INTERFACE SYSTEM Refer to clinic/hospital department * (ABNORMAL) PROTIME-INR (01/18/2006 5:25 AM CDT) PROTIME 18.8(H) 12.7 - 15.1 Seconds INTERFACE SYSTEM INR 1.5(H) 0.9 - 1.1 INTERFACE SYSTEM Comment: INR Therapeutic Range: Adult: 2.0 - 3.0 for pulmonary embolism or prophylaxis against venous thrombosis or systemic embolization. 2.0 - 3.0 for patients with tissue heart valves. 2.5 - 3.5 for patients with mechanical heart valves or post DE. Pediatric (12 years and under): 1.5 - 3.0 Although the target range in children is not well established , INR values of 1.5 - 3.0 are recommended for most patients. Higher values have been used in children with prosthetic cardiac valves and hereditary clotting disorders. (<3 days) therapeutic ranges have not been established. 01/18/2006 5:25 AM CDT us Pablo De La Rosa MD HEMATOLOGY ORDERABLES Final Resu lt Performing Organization Address [facility] Phone Number INTERFACE SYSTEM Refer to clinic/hospital department * (ABNORMAL) PROTIME-INR (01/17/2006 5:35 AM CDT) PROTIME 16.7(H) 12.7 - 15.1 Seconds INTERFACE SYSTEM INR 1.2(H) 0.9 - 1.1 INTERFACE SYSTEM Comment: INR Therapeutic Range: Adult: 2.0 - 3.0 for pulmonary embolism or prophylaxis against venous thrombosis or systemic embolization. 2.0 - 3.0 for patients with tissue heart valves. 2.5 - 3.5 for patients with mechanical heart valves or post DE. Pediatric (12 years and under): 1.5 - 3.0 Although the target range in children is not well established , INR values of 1.5 - 3.0 are recommended for most patients. Higher values have been used in children with prosthetic cardiac valves and hereditary clotting disorders. (<3 days) therapeutic ranges have not been established. 01/17/2006 5:35 AM CDT us Pablo De La Rosa MD HEMATOLOGY ORDERABLES Final Resu lt Performing Organization Address [place]/[facility] Co de Phone Number INTERFACE SYSTEM Refer to clinic/hospital department * (ABNORMAL) PROTIME-INR (01/16/2006 5:00 AM CDT) PROTIME 15.8(H) 12.7 - 15.1 Seconds INTERFACE SYSTEM INR 1.2(H) 0.9 - 1.1 INTERFACE SYSTEM Comment: INR Therapeutic Range: Adult: 2.0 - 3.0 for pulmonary embolism or prophylaxis against venous thrombosis or systemic embolization. 2.0 - 3.0 for patients with tissue heart valves. 2.5 - 3.5 for patients with mechanical heart valves or post DE. Pediatric (12 years and under): 1.5 - 3.0 Although the target range in children is not well established , INR values of 1.5 - 3.0 are recommended for most patients. Higher values have been used in children with prosthetic cardiac valves and hereditary clotting disorders. (<3 days) therapeutic ranges have not been established. 01/16/2006 5:00 AM CDT us Sushil Arroyo MD HEMATOLOGY ORDERABLES Final Result Performing Organization Address [place]/[facility] Co de Phone Number INTERFACE SYSTEM Refer to clinic/hospital department * (ABNORMAL) CBC WITH DIFFERENTIAL (01/14/2006 5:28 AM CDT) NEUTROPHILS 70 45 - 70 % INTERFAC E SYSTEM LYMPHOCYTES 15(L) 16 - 45 % INTERFAC E SYSTEM MONOCYTES 14(H) 3 - 13 % INTERFACE SYSTEM EOSINOPHILS 2 0 - 7 % INTERFAC E SYSTEM BASOPHILS 0 0 - 2 % INTERFACE SYSTEM NEUTROPHIL ABSOLUTE 6.68 1.90 - 7.00 K/uL INTERFACE SYSTEM LYMPHOCYTE ABSOLUTE 1.38 0.70 - 4.50 K/uL INTERFACE SYSTEM MONOCYTE ABSOLUTE 1.30 0.10 - 1.30 K/uL INTERFACE SYSTEM EOSINOPHIL ABSOLUTE 0.15 0.00 - 0.70 K/uL INTERFACE SYSTEM BASOPHILS ABSOLUTE 0.01 0.00 - 0.20 K/uL INTERFACE SYSTEM 01/14/2006 5:28 AM CDT Sushil Arroyo MD HEMATOLOGY ORDERABLES Final Result INTERFACE SYSTEM Refer to clinic/hospital department * (ABNORMAL) CBC WITH DIFFERENTIAL (01/14/2006 5:28 AM CDT) WBC 9.5 4.0 - 9.8 K/uL INTERFACE SYSTEM RBC 4.11(L) 4.50 - 5.40 M/uL INTERFACE SYSTEM HEMOGLOBIN 12.5(L) 13.6 - 16.5 g/dL INTERFACE SYSTEM HEMATOCRIT 36.5(L) 40.0 - 48.0 % INTERFACE SYSTEM MCV 88.8 82.0 - 99.0 fL INTERFACE SYSTEM MCH 30.4 27.2 - 32.6 pg INTERFACE SYSTEM MCHC 34.2 31.5 - 35.5 % INTERFACE SYSTEM RDW 12.5 11.5 - 14.5 % INTERFACE SYSTEM RDW-STDEV 40.3 37.1 - 48.7 fL INTERFACE SYSTEM PLATELETS 252 140 - 350 K/uL INTERFACE SYSTEM MPV 10.2 9.3 - 12.4 fL INTERFACE SYSTEM 01/14/2006 5:28 AM CDT Sushil Arroyo MD HEMATOLOGY ORDERABLES Final Result INTERFACE SYSTEM Refer to clinic/hospital department * (ABNORMAL) BASIC METABOLIC PANEL (01/14/2006 5:28 AM CDT) GLUCOSE 99 65 - 99 mg/dL INTERFACE SYSTEM Comment:Note: Effective November 17, 2005, reference range now reflects a fasting st ate. CREATININE 0.8 0.5 - 1.3 mg/dL INTERFACE SYSTEM CALCIUM 8.3(L) 8.6 - 10.2 mg/dL INTERFACE SYSTEM BUN 19 6 - 20 mg/dL INTERFACE SYSTEM SODIUM 132(L) 135 - 145 mmol/L INTERFACE SYSTEM POTASSIUM 4.2 3.5 - 4.9 mmol/L INTERFACE SYSTEM CHLORIDE 100 96 - 108 mmol/L INTERFACE SYSTEM CO2 25 22 - 30 mmol/L INTERFACE SYSTEM 01/14/2006 5:28 AM CDT Sushil Arroyo MD CHEMISTRY ORDERABLES Final R esult Performing Organization Address [place]/[facility] Co de Phone Number INTERFACE SYSTEM Refer to clinic/hospital department * (ABNORMAL) URINALYSIS (01/13/2006 4:14 PM CDT) COLOR UA Yellow INTERFACE SYSTEM CLARITY UA Clear Clear INTERFACE SYSTEM SPECIFIC GRAVITY UA 1.015 1.001 - 1.035 INTERFACE SYSTEM PH UA 6.0 5.0 - 8.0 INTERFACE SYSTEM LEUKOCYTE ESTERASE UA 2+(A) Negative INTERFACE SYSTEM NITRITE UA Negative Negative INTERFACE SYSTEM PROTEIN UA Trace(A) Negative INTERFACE SYSTEM GLUCOSE UA Negative Negative INTERFACE SYSTEM KETONES UA Negative Negative INTERFACE SYSTEM UROBILINOGEN UA <1 <=1 mg/dL INTE RFACE SYSTEM BILIRUBIN UA Negative Negative INTERFA CE SYSTEM BLOOD UA 2+(A) Negative INTERFACE SYSTEM WBC UA 9(H) 0 - 3 /HPF INTERFACE SYSTEM RBC UA 83(H) 0 - 3 /HPF INTERFACE SYSTEM EPITHELIAL CELLS, URINE 0-2 /HPF INTERFACE SYSTEM 01/13/2006 4:14 PM CDT Sushil Arroyo MD URINE ORDERABLES Final Resul t Performing Organization Address City/[facility]/ZIP Co de Phone Number INTERFACE SYSTEM Refer to clinic/hospital department documented in this encounter Visit Diagnoses Diagnosis Other specified rehabilitation procedure(V57.89)- Primary Other specified rehabilitation procedure documented in this encounter
--- OUTSIDE RECORDS SUMMARY | 2024-08-11 12:50 | XMS_ITS | Encounter Summary ---
Author Organization [facility] Address [address] [place] [address] Care Team Providers Care Translator Name Role Phone Unavailable Primary Care Provider Unavailabl e Encounter Details Date Type Department Care Team (Late st Contact Info) Description 01/13/2006 Outpatient Historical [facility] Blood Flow [address] [place] [address] Dillan Henry MD NO ADDRESS ON FILE Social History Tobacco Use Types Packs/Day Years Used Date Smoking Tobacco: Never Assessed Sex and Gender Information Value Date Recorded Sex Assigned at Not on file Legal Sex Male 3:46 AM [employer] Gender Identity Not on file Sexual Orientation Not on file documented as of this encounter Plan of Treatment Not on file documented as of this encounter Visit Diagnoses Not on filedocumented in this encounter
--- OUTSIDE RECORDS SUMMARY | 2024-08-11 12:50 | XMS_ITS | Referral Summary ---
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 [facility] BLOOD [facility] Expiration Date [facility] B[facility] Unit Description AS1 LR PRBC [facility] BLOOD [facility] Unit ABO O [facility] BLOOD [facility] Unit POS [facility] BLO[facility] Product Number R02 [facility] B LOOD BANK LAB Unit Donor # [id number] [facility] BLOOD [facility] Unit Status released [facility] BLOO D [facility]ANK LAB Product Code [id number] [facility] BLO OD BANK LAB Blood Type Barcode 5100 [facility] Expiration Date S BLOOD BANK LAB Blood Bank BLOOD SPECIMEN / Unknown 06/01/2024 1:07 AM [facility] Deshawn Schultz MD LAB - BLOOD BANK ORD ERABLES [facility] [address] [place] [address], [facility] [phone] * ETT LINE PERFORMABLE (06/04/2024 8:58 AM [facility] [employer]) Narrative Kasi Potts Anes Asst - 06/04/2024 8:58 AM [facility] Kasi Potts Anes Asst 06/04/2024 8:58 AM Endotracheal Tube Placement: Patient Location: OR. Intubation Event Date/Time: 06/04/2024 7:55 AM Procedure: intubation ([id number]) Procedure Section: Sedation: under general anesthesia. Indications for Airway Management: anesthesia Procedure pretreatments used? No Induction: standard IV Patient Position: supine Mask Ventilation: easy with oral airway. Blade Type: Tanvi Blade Size: 4 Laryngoscopy View: grade 1 (full cords) Tube: endotracheal tube Placement: oral Tube type: cuff - inflated Tube Size (MM): 7.5 Depth of Insertion (CM): 23 Measured From: gums Cuff Inflated With: air Number of Attempts: 1. Placement Verified By: direct visualization, bilateral breath sounds, chest auscultation and CO2 monitor Tube secured with: adhesive tape and ETT guerrero. Dentition unchanged? Yes Difficult Airway? No. Procedure Start Time: 06/04/2024 7:55 AM. Procedure End Time: 06/04/2024 7:55 AM. Procedure Total Time: 0 minutes. Staff Section Anesthesia Provider: Kasi Potts Anes Asst, Performed the procedure Mustapha Thompson MD GENERAL ANESTHESI A ORDERABLES * IV PLACEMENT PERFORMABLE (06/04/2024 8:57 AM [facility]) Narrative Kasi Potts Anes Asst - 06/04/2024 8:57 AM [facility] Kasi Potts Anes Asst 06/04/2024 8:57 AM Peripheral IV Line Placement: Patient Location: OR Insertion Time: 06/04/2024 8:49 AM Procedure: IV start ([id number]) Procedure Section: Skin Prep: alcohol. Orientation: right Location: wrist Local Anesthetic Used? No Catheter Gauge: 22 Number of Attempts: 1. Adjuncts: backlight Procedure Tolerance: performed while patient under general anesthesia. Procedure Start Time: 06/04/2024 8:49 AM. Procedure End Time: 06/04/2024 8:49 AM. Procedure Total Time: 0 minutes. Staff Section Anesthesia Provider: Mustapha Byrnes MD, Performed the procedure Mustapha Thompson MD GENERAL ANESTHESI A ORDERABLES * (ABNORMAL) PTT [facility] (06/04/2024 6:01 AM [facility] [employer]) Only the most recent of2 resultswithin the time period is included. APTT 38.8(H) 23.0 - 38.4 Seconds 06/04/2024 6:26 AM [facility] Comment:Suggested therapeuti c range for full dose I.V. unfractionated heparin therapy for venous thromboembolism is 71 to 109 seconds. Blood BLOOD SPECIMEN / Unknown Lab Venipuncture / Unknown 06/04/2024 6:01 AM [facility] 06/04/2024 6:06 AM [facility] Deshawn Schultz MD LAB - COAGULATION OR DERABLES Performing Organization Address [facility]/ZIP Co de Phone Number [address] [address], [facility] [phone] * PT-INR [facility] (06/04/2024 6:01 AM [facility] [employer]) Only the most recent of2 resultswithin the time period is included. PT 13.8 12.1 - 14.8 Seconds 06/04/2024 6:26 AM [facility] INR 1.1 See Comment 06/04/2024 6:26 AM [facility] Comment:The suggested therap eutic range for standard coumadin (warfarin) therapy is an INR of 2.0-3.0. For high-risk patients (Mechanical Mitral Valve Prosthesis, etc.), the suggested prophylactic therapeutic range is an INR of 2.5-3.5. Blood BLOOD SPECIMEN / Unknown Lab Venipuncture / Unknown 06/04/2024 6:01 AM [facility] 06/04/2024 6:06 AM [facility] Deshawn Schultz MD LAB - COAGULATION OR DERABLES Performing Organization Address City/[facility]/ZIP Co de Phone Number [address] [address], [employer] [phone] * (ABNORMAL) URINALYSIS REFLEX TO MICROSCOPIC NO CULTURE (06/03/2024 5:41 AM [facility] [employer]) Only the most recent of8 resultswithin the time period is included. Color UA Straw Straw, Yellow 06/03/2024 6:15 AM [facility] Clarity UA Clear Clear 06/03/2024 6:15 AM [facility] Specific Tabor UA 1.011 1.005 - 1.030 06/03/2024 6:15 AM [facility] pH UA 8.0 5.0 - 8.0 pH 06/03/2024 6:15 AM [facility] Protein UA Negative Negative 06/03/2024 6:15 AM [facility] Glucose UA Negative Negative 06/03/2024 6:15 AM [facility] Ketone UA Negative Negative 06/03/2024 6:15 AM [facility] Bilirubin UA Negative Negative 06/03/2024 6:15 AM [facility] Blood UA Negative Negative 06/03/2024 6:15 AM [facility] Nitrite UA Negative Negative 06/03/2024 6:15 AM [facility] Leukocyte Esterase Trace(A) Negative 06/03/2024 6:15 AM [facility] Urobilinogen UA Negative Negative mg/dL 06/03/2024 6:15 AM [facility] RBC UA None Seen None Seen, 0-2, 3-5 /HPF 06/03/2024 6:15 AM [facility] WBC UA 0-5 None Seen, 0-5 /HPF 06/03/2024 6:15 AM [facility] Squamous Epithelial Cells UA 0-2 None Seen, 0-2, 3-5 /HPF 06/03/2024 6:15 AM [facility] Urine URINE SPECIMEN OBTAINED VIA [facility]WELLING URINARY CATHETER / Unknown Collection / Unknown 06/03/2024 5:41 AM [facility] 06/03/2024 5:58 AM [facility] - 06/03/2024 6:15 AM [facility] [employer] Deshawn Schultz MD LAB - URINALYSIS ORD ERABLES [facility] [address] [place] [address], [facility] [phone] * (ABNORMAL) BASIC METABOLIC PANEL (CALCIUM TOTAL) (06/03/2024 1:35 AM [facility] [employer]) Only the most recent of3 resultswithin the time period is included. BUN 20 7 - 26 mg/dL 06/03/2024 2:55 AM [facility] Creatinine 0.90 0.71 - 1.16 mg/dL 06/03/2024 2:55 AM [facility] Sodium 139 136 - 145 mmol/L 06/03/2024 2:55 AM [facility] Potassium 3.6 3.5 - 4.5 mmol/L 06/03/2024 2:55 AM [facility] Chloride 104 98 - 107 mmol/L 06/03/2024 2:55 AM [facility] CO2 27 22 - 29 mmol/L 06/03/2024 2:55 AM [facility] Glucose 101(H) 70 - 99 mg/dL 06/03/2024 2:55 AM [facility] Calcium 8.2(L) 8.4 - 10.2 mg/dL 06/03/2024 2:55 AM [facility] Anion Gap 8 6 - 16 06/03/2024 2:55 AM [facility] BUN/Creatinine Ratio 22 7 - 23 06/03/2024 2:55 AM [facility] Osmolality Calculated 291 275 - 295 mOsm/kg 06/03/2024 2:55 AM [facility] eGFR by CKD-EPI 89(L) >=90 mL/min/1.7 3 m2 06/03/2024 2:55 AM [facility] Blood BLOOD SPECIMEN / Unknown Lab Venipuncture / Unknown 06/03/2024 1:35 AM [facility] 06/03/2024 2:27 AM [facility] Deshawn Schultz MD LAB - CHEMISTRY ANTONIO Monreal Organization Address City/State/ZIP Co de Phone Number [facility] [address] [place] [address], [facility] [phone] * (ABNORMAL) HEPATIC FUNCTION PANEL (06/03/2024 1:35 AM [facility] [employer]) Pathologist [facility] Protein Total 6.5 6.0 - 8.3 g/dL 2:55 AM [facility] Albumin 2.9(L) 3.4 - 5.0 g/dL 06/03/2024 2:55 AM [facility] Bilirubin Total 0.6 0.2 - 1.2 mg/dL 05/07 2:55 AM [facility] Bilirubin Conjugated 0.2 0.1 - 0.5 mg/dL 06/03/2024 2:55 AM [facility] Bilirubin Unconjugated 0.4 Unconjugated Bilirubin is a calculated value: Reference ranges have not been established. mg/dL 06/03/2024 2:55 AM [facility] Alkaline Phosphatase 137 40 - 150 U/L 06/03/2024 2:55 AM [facility] ALT 14 5 - 55 U/L 06/03/2024 2:55 AM [facility] AST 17 5 - 34 U/L 06/03/2024 2:55 AM [facility] Albumin/Globulin Ratio 0.8(L) 1.1 - 2.3 06/03/2024 2:55 AM [facility] Blood BLOOD SPECIMEN / Unknown Lab Venipuncture / Unknown 06/03/2024 1:35 AM [facility] 06/03/2024 2:27 AM [facility] Marcy Mascorro MD LAB - CHEMISTRY ANTONIO WALKER [facility] Organization Address [facility] Co de Phone Number [facility] [address] [address] [phone] * (ABNORMAL) CULTURE URINE (06/01/2024 6:04 PM [facility] [employer]) [facility] Culture Urine 50,000-100,000 CFU/mL Escherichia coli extended-spectr um beta-lactamase (ESBL)(A) HA 06/04/2024 1:17 AM [facility] Urine SUPRAPUBIC URINE SPECIMEN / Unknown Collection / Unknown 06/01/2024 6:04 PM [facility] 06/01/2024 6:12 PM [facility] Narrative [facility] - 06/04/2024 1:17 AM [facility] [employer] Contact Precautions Required. Organism Antibiotic Method Susceptibility Escherichia coli extended-spectrum beta-lactamase (ESBL) Amikacin HA <=2 ug/mL: Susceptible Escherichia coli extended-spectrum beta-lactamase (ESBL) Ampicillin HA >=32 ug/mL: Resistant Escherichia coli extended-spectrum beta-lactamase (ESBL) Ampicillin-sulbactam HA >=32 ug/mL: Resistant Escherichia coli extended-spectrum beta-lactamase (ESBL) Cefazolin HA >=64 ug/mL: Resistant Escherichia coli extended-spectrum beta-lactamase (ESBL) Cefazolin-Urine (uncomplicated infections ONLY) HA >=64 ug/mL: Resistant Escherichia coli extended-spectrum beta-lactamase (ESBL) Cefepime HA >=64 ug/mL: Resistant Escherichia coli extended-spectrum beta-lactamase (ESBL) Ceftriaxone HA >=64 ug/mL: Resistant Escherichia coli extended-spectrum beta-lactamase (ESBL) Ciprofloxacin HA >=4 ug/mL: Resistant Escherichia coli extended-spectrum beta-lactamase (ESBL) Ertapenem HA <=0.5 ug/mL: Susceptible Comment:This is an a ppended report. These results have been appended to a previously final verified report. Escherichia coli extended-spectrum beta-lactamase (ESBL) Extended-Spectrum Beta-Lactamase HA POS ug/mL: Pos Escherichia coli extended-spectrum beta-lactamase (ESBL) Gentamicin HA <=1 ug/mL: Susceptible Escherichia coli extended-spectrum beta-lactamase (ESBL) Meropenem HA <=0.25 ug/mL: Susceptible Escherichia coli extended-spectrum beta-lactamase (ESBL) Piperacillin-tazobactam HA <=4 ug/mL: Susceptible Escherichia coli extended-spectrum beta-lactamase (ESBL) Tobramycin HA <=1 ug/mL: Susceptible Escherichia coli extended-spectrum beta-lactamase (ESBL) Trimethoprim-sulfamethoxa zole HA <=20 ug/mL: Susceptible Escherichia coli extended-spectrum beta-lactamase (ESBL) Fosfomycin KB Susceptible Comment: Extended-spectrum beta-lactamase (ESBL) producing organism. Beta-lactam/beta-lactamase inhibitor combinations may not be effective for treatment of bloodstream infections and other severe infections regardless of in vitro susceptibility testing results. Infectious Disease consult recommended. Contact precautions required. Urine breakpoints for cefazolin should only be used when treating uncomplicated UTIs including men and women without urologic abnormality, kidney stones, stents, nephrostomy tubes, signs/symptoms of systemic illness, or pelvic/perineal pain in men. Cefazolin results can be used to predict susceptibility to oral cephalosporins - cephalexin, cefprozil, cefaclor, cefuroxime, cefdinir, and cefpodoxime. For complicated UTIs, use alternative cefazolin susceptibility result above. requested Ertapenem-released Deshawn Schultz MD LAB - MICROBIOLOGY O RDERABLES [facility] [address] [place] [address], [facility] [phone] * XR CHEST 1VW PORTABLE (06/01/2024 4:53 AM [facility] [employer]) Anatomical Region Laterality Modality Chest Digital Radiogra phy 06/01/2024 9:38 PM [facility] Impressions 06/01/2024 9:39 PM [facility] IMPRESSION: The cardiomediastinal silhouette is within normal limits for technique. There are mild bibasilar opacities, which may represent atelectasis or airspace disease. No large pleural effusion or pneumothorax is identified. > Interpreting Provider: Diamond Goldstein MD on 06/01/2024 9:39 PM Narrative 06/01/2024 9:39 PM [facility] [employer] PROCEDURE: XR CHEST 1VW PORTABLE DATE/TIME OF EXAM: 06/01/2024 4:53 AM CLINICAL INFORMATION: None relevant/not provided if blank. Indication: Z46.2: End of battery life of intrathecal infusion pump Additional History: COMPARISON: None. Procedure Note Diamond Goldstein MD - 06/01/2024 PROCEDURE: XR CHEST 1VW PORTABLE DATE/TIME OF EXAM: 06/01/2024 4:53 AM CLINICAL INFORMATION: None relevant/not provided if blank. Indication: Z46.2: End of battery life of intrathecal infusion pump Additional History: COMPARISON: None. IMPRESSION: The cardiomediastinal silhouette is within normal limits for technique. There are mild bibasilar opacities, which may represent atelectasis or airspace disease. No large pleural effusion or pneumothorax isidentified. > Interpreting Provider: Diamond Goldstein MD on 06/01/2024 9:39 PM Deshawn Schultz MD DIAGNOSTIC IMAGING O RDERABLES * TYPE + SCREEN PANEL (06/01/2024 12:55 AM [facility] [employer]) Antibody Screen POS 2:40 AM [facility] B[facility]OD [facility] ABO Rh O POS 06/01/2024 2:40 AM [facility] [employer] Blood Bank BLOOD SPECIMEN / Unknown Lab Venipuncture / Unknown 06/01/2024 12:55 AM [facility] 06/01/2024 1:07 AM [facility] Deshawn Schultz MD LAB - BLOOD BANK ORD ERABLES [facility] [address] [place] [address], [facility] [phone] * BONIFACIO DIRECT (06/01/2024 12:55 AM [facility]) Direct Bonifacio (FIDEL) NEG 06/01/2024 3:17 AM [facility] Blood Bank BLOOD SPECIMEN / Unknown Lab Venipuncture / Unknown 06/01/2024 12:55 AM [facility] 06/01/2024 1:07 AM [facility] Deshawn Schultz MD LAB - BLOOD BANK ORD ERABLES [facility] [address] [place] [address], [facility] [phone] * ANTIBODY IDENTIFICATION (06/01/2024 12:55 AM [facility] [employer]) Antibody 1 POS, Anti-e (little) 06/01/2024 3:57 AM [facility] LAB Blood Bank BLOOD SPECIMEN / Unknown Lab Venipuncture / Unknown 06/01/2024 12:55 AM [facility] 06/01/2024 1:07 AM [facility] Deshawn Schultz MD LAB - BLOOD BANK ORD ERABLES Performing Organization Address City/[facility]/ZIP Co de Phone Number [facility] [address] [place] [address], [facility] [phone] * PHOSPHORUS BLOOD (06/01/2024 12:55 AM [facility] [employer]) Phosphorus 3.9 2.8 - 5.1 mg/dL 06/01/2024 1:37 AM [facility] Blood BLOOD SPECIMEN / Unknown Lab Venipuncture / Unknown 06/01/2024 12:55 AM [facility] 06/01/2024 1:08 AM [facility] Deshawn Schultz MD LAB - CHEMISTRY ANTONIO WALKER Performing Organization Address City/[facility]/ZIP Co de Phone Number [address] [address], [facility] [phone] * MAGNESIUM BLOOD (06/01/2024 12:55 AM [facility] [employer]) Magnesium 2.1 1.6 - 2.6 mg/dL 06/01/2024 1:37 AM [facility] Blood BLOOD SPECIMEN / Unknown Lab Venipuncture / Unknown 06/01/2024 12:55 AM [facility] [employer] 06/01/2024 1:08 AM [facility] Deshawn Schultz MD LAB - CHEMISTRY ANTONIO WALKER Performing Organization Address [facility]/ZIP Co de Phone Number [address] [address], [facility] [phone] * XR Abdomen Kub Portable (06/01/2024 12:00 AM [facility] [employer]) Anatomical Region Laterality Modality Abdomen Digital Radiogra phy 06/01/2024 2:07 PM [facility] Impressions 06/01/2024 2:09 PM [facility] IMPRESSION: *A baclofen pump projects over the left lower quadrant. The associated catheter is partially visualized. *A neurostimulator device projects over the right lower quadrant with leads project over the right sacrum. *Embolization coil and inferior vena cava filter is in the right upper quadrant. Nonobstructive bowel gas pattern. Moderate colonic stool volume. > Interpreting Provider: Diamond Goldstein MD on 06/01/2024 2:09 PM Narrative 06/01/2024 2:09 PM [facility] [employer] PROCEDURE: XR ABDOMEN KUB PORTABLE DATE/TIME OF EXAM: 06/01/2024 12:10 AM CLINICAL INFORMATION: None relevant/not provided if blank. Indication: Z46.2: End of battery life of intrathecal infusion pump Additional History: COMPARISON: 09/03/2017 Procedure Note Diamond Goldstein MD - 06/01/2024 PROCEDURE: XR ABDOMEN KUB PORTABLE DATE/TIME OF EXAM: 06/01/2024 12:10 AM CLINICAL INFORMATION: None relevant/not provided if blank. Indication: Z46.2: End of battery life of intrathecal infusion pump Additional History: COMPARISON: 09/03/2017 IMPRESSION: *A baclofen pump projects over the left lower quadrant. The associated catheter is partially visualized. *A neurostimulator device projects over the right lower quadrant withleads project over the right sacrum. *Embolization coil and inferior vena cava filter is in the right upper quadrant. Nonobstructive bowel gas pattern. Moderate colonic stool volume. > Interpreting Provider: Diamond Goldstein MD on 06/01/2024 2:09 PM Deshawn Schultz MD DIAGNOSTIC IMAGING O RDERABLES from Last 3 Months Additional Health Concerns Infection Onset Date Last Indicated ESBL GNR 06/01/2024 06/01/2024 Advance Directives * Full Code (Latest Code Status on File) Date Activated Date Inactivated Comments 05/31/2024 11:27 PM 06/09/2024 8:37 PM Care Teams Shop Technician Relationship Specialty Start Date End Date Rod Strauss MD [address] [place] [address] PCP - General Internal Medicine 06/15/24
--- OUTSIDE RECORDS SUMMARY | 2024-08-11 12:50 | XMS_ITS | Patient Health Summary ---
Author Organization [facility] Address [address] [place] [address] Care Team Providers Care Street Inspector Name Role Phone Rod Strauss MD Primary Care Provider [phone] Note from [facility],non-owned Affiliates and Associated Physician Practices is amultiple site organization consisting of ambulatory clinics and hospital sitesin [place], [place], [place] and [place]. This disclosure is being madepursuant to the Care Everywhere program and may not contain all information available regarding this patient. Last updated 18.[facility] Allergies * Levofloxacin(Rash) -Medium Criticality * Sulfamethoxazole W-Trimethoprim(Other) -Low Criticality * Tizanidine Hcl(Other) -Low Criticality * Venlafaxine(Dizziness) -Low Criticality Medications * Be aware that medications may not be up to date on this document. Alwaysverify current medications with the patient. * folic acid (FOLVITE) 1 MG tablet(Started 04/22/2017) Take 1 (one) tablet by mouth DAILY * hydrALAZINE (Apresoline) 50 MG tablet Take 1 (one) tablet by mouth every 8 hours as needed (If BP is >160/80) * atorvastatin (Lipitor) 80 MG tablet Take 1 (one) tablet by mouth at bedtime * Cranberry 450 MG CAPS Take 450 mg by mouth once daily * ferrous sulfate 325 (65 FE) MG tablet Take 1 (one) tablet by mouth once daily * mirabegron ER 24hr (Myrbetriq) 25 MG tablet Take 1 (one) tablet by mouth once daily * multivitamin daily tablet Take 1 (one) tablet by mouth daily with food * pantoprazole EC (Protonix) 40 MG tablet Take 1 (one) tablet by mouth 2 times daily * methenamine hippurate (Hiprex) 1 GM tablet Take 1 (one) tablet by mouth 2 times daily * metoprolol tartrate IR (Lopressor) 25 MG tablet(Started 04/08/2023) Take 1 (one) tablet by mouth 2 times daily * acetaminophen (Tylenol) 500 MG tablet Take 2 (two) tablets by mouth every 6 hours as needed * ascorbic acid (Vitamin C) 500 MG tablet(Started 10/04/2023) Take 1 (one) tablet by mouth once daily * ibuprofen (Motrin) 200 MG tablet(Started 06/09/2024) Take 1 (one) tablet by mouth every 6 hours as needed * hydrOXYzine HCl (Atarax) 25 MG tablet(Started 06/09/2024) Take 1 (one) tablet by mouth 3 times daily as needed * pregabalin (Lyrica) 50 MG capsule(Started 06/09/2024) Take 1 (one) capsule by mouth 2 times daily * melatonin 3 MG tablet(Started 06/09/2024) Take 1 (one) tablet by mouth at bedtime * simethicone (Mylicon) 80 MG chew tablet(Started 06/09/2024) Take 1 (one) tablet by mouth every 6 hours as needed for Gas Pain Active Problems Problem Noted Date Diagnosed Date Delirium 06/07/2024 UTI due to extended-spectrum beta lactamase (ESBL) producing Escherichia coli 06/07/2024 End of battery life of intrathecal infusion pump 05/31/2024 Chronic pain 05/30/2024 Male erectile disorder 05/30/2024 Allergic rhinitis 05/30/2024 Folic acid deficiency 05/30/2024 Gastroesophageal reflux disease 05/30/2024 History of thromboembolism of vein 05/30/2024 Iron deficiency 05/30/2024 Quadriplegia, unspecified 05/30/2024 Radiculopathy, cervical region 05/30/2024 Skin sensation disturbance 05/30/2024 Asymptomatic bacteriuria 10/26/2023 Hypernatremia 10/26/2023 HOCM (hypertrophic obstructive cardiomyopathy) 0 10/02/2023 Presence of suprapubic catheter 10/02/2023 Major depression 07/15/2023 Cerebral infarction 07/15/2023 Cervicalgia 07/15/2023 Illness, unspecified 07/15/2023 Urinary catheter present 07/15/2023 Combined forms of age-related cataract, bilatera l 04/21/2023 Debility 04/21/2023 Erythema intertrigo 04/21/2023 History of recurrent urinary tract infection Personal history of traumatic brain injury 04/21 History of thromboembolism of vein 04/21/2023 Homonymous bilateral field defects, right side 1 Hyperlipidemia 04/21/2023 Malignant melanoma of skin 04/21/2023 Neuropathic pain 04/21/2023 Other general symptoms and signs 04/21/2023 Actinic keratosis 04/21/2023 Other seborrheic keratosis 04/21/2023 Implantable intrathecal infusion pump present Meningitis 04/21/2023 Skin sensation disturbance 04/21/2023 Spasticity 04/21/2023 Sprain of sacroiliac region 04/21/2023 Unspecified superficial keratitis, left eye 04/04 Gastrointestinal hemorrhage 04/01/2023 Lactic acidosis 09/01/2020 Urinary tract infection associated with cystosto my catheter 12/25/2019 Visual field loss following stroke 09/05/2019 History of stroke 08/20/2019 Hydronephrosis 05/10/2019 Pyelonephritis 04/12/2019 Somnolence 06/03/2018 Essential hypertension 06/02/2018 Other muscle spasm 09/03/2017 External hemorrhoids 12/14/2014 Internal hemorrhoids with complication 5 Osteoarthritis of lumbar spine 04/12/2013 Anemia 10/26/2012 Gastric ulcer 10/26/2012 Iron deficiency anemia, unspecified 10/26/2012 Chronic low back pain 07/29/2012 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 Patient declined 05/31/2024 [facility] - Occupational Stress [...] any time in the past 12 m [facility], were you homeless or living in a senior care (including now)? Patient declined 05/31/2024 Sex and Gender Information Value Date Recorded Sex Assigned at Not on file Gender Identity Not on file Sexual Orientation Not on file Last Filed Vital Signs Vital Sign Reading Time Taken Comments Blood Pressure 135/77 06/15/2024 11:48 AM SIGNAL MECHANIC Pulse 74 06/15/2024 11:48 AM SIGNAL MECHANIC Temperature 36.4 C (97.6 F) 06/15/2024 8:35 AM SIGNAL MECHANIC Respiratory Rate 16 06/15/2024 11:48 AM SIGNAL MECHANIC Oxygen Saturation 97% 06/15/2024 11:48 AM SIGNAL MECHANIC Inhaled Oxygen Concentration 40% 06/04/2024 9 :43 AM SIGNAL MECHANIC Weight 88.5 kg (195 lb) 06/15/2024 8:35 AM SIGNAL MECHANIC Height 190.5 cm (6' 3 ) 06/15/2024 8:35 AM SIGNAL MECHANIC Body Mass Index 24.37 06/15/2024 8:35 AM SIGNAL MECHANIC Medical Devices Implanted Type Area Environmental Health Manager Device Identifier Shelf Expiration Date Model / Serial / Lot Synchromed Iii Pump Implanted:Qty: 1 on 06/04/2024 by Deshawn Schultz MD at [facility] Left: Abdomen [employer] 08/18/2025 8667-40 / [id number] / Ascenda Implanted:Qty: 1 on 06/04/2024 by Deshawn Schultz MD at [facility] Left: Abdomen [employer] 12/14/2024 [id number] / / [id number] Procedures * COMPREHENSIVE METABOLIC PANEL(Performed 06/15/2024) * CBC W AUTO DIFFERENTIAL(Performed 06/15/2024) * CBC W AUTO DIFFERENTIAL(Performed 06/07/2024) * HEPATITIS C AB SCREEN RFLX NAAT QUANT(Performed 06/06/2024) * HIV-1 HIV-2 ANTIBODY + HIV P24 AG PANEL(Performed 06/06/2024) * US RETROPERITONEAL COMPLETE(Performed 06/05/2024) Performed for End of battery life of intrathecal infusion pump * PREPARE RBC LEUKOREDUCED UNIT(Performed 06/05/2024) * ENDOTRACHEAL TUBE NOTE(Performed 06/04/2024) * PERIPHERAL IV NOTE(Performed 06/04/2024) * CA ANALYZE INFUSN PUMP+REPROGRAM(Performed 06/04/2024) Performed for Baclofen pump failure, initial encounter * PTT [facility](Performed 06/04/2024) * PT-INR [facility](Performed 06/04/2024) * CBC W AUTO DIFFERENTIAL(Performed 06/04/2024) * URINALYSIS REFLEX TO MICROSCOPIC NO CULTURE(Performed 06/03/2024) * HEPATIC FUNCTION PANEL(Performed 06/03/2024) * CBC W AUTO DIFFERENTIAL(Performed 06/03/2024) * BASIC METABOLIC PANEL (CALCIUM TOTAL)(Performed 06/03/2024) * URINALYSIS REFLEX TO MICROSCOPIC NO CULTURE(Performed 06/03/2024) * URINALYSIS REFLEX TO MICROSCOPIC NO CULTURE(Performed 06/02/2024) * URINALYSIS REFLEX TO MICROSCOPIC NO CULTURE(Performed 06/02/2024) * CBC W AUTO DIFFERENTIAL(Performed 06/02/2024) * BASIC METABOLIC PANEL (CALCIUM TOTAL)(Performed 06/02/2024) * URINALYSIS REFLEX TO MICROSCOPIC NO CULTURE(Performed 06/01/2024) * URINALYSIS REFLEX TO MICROSCOPIC NO CULTURE(Performed 06/01/2024) * CULTURE URINE(Performed 06/01/2024) * URINALYSIS REFLEX TO MICROSCOPIC NO CULTURE(Performed 06/01/2024) * XR CHEST 1VW PORTABLE(Performed 06/01/2024) Performed for End of battery life of intrathecal infusion pump * ANTIBODY IDENTIFICATION(Performed 06/01/2024) * BONIFACIO DIRECT(Performed 06/01/2024) * TYPE + SCREEN PANEL(Performed 06/01/2024) * PTT [facility](Performed 06/01/2024) * PT-INR [facility](Performed 06/01/2024) * PHOSPHORUS BLOOD(Performed 06/01/2024) * MAGNESIUM BLOOD(Performed 06/01/2024) * CBC W AUTO DIFFERENTIAL(Performed 06/01/2024) * BASIC METABOLIC PANEL (CALCIUM TOTAL)(Performed 06/01/2024) * URINALYSIS REFLEX TO MICROSCOPIC NO CULTURE(Performed 06/01/2024) * XR ABDOMEN KUB PORTABLE(Performed 06/01/2024) Performed for End of battery life of intrathecal infusion pump * CBC W AUTO DIFFERENTIAL(Performed 09/04/2017) * BASIC METABOLIC PANEL (CALCIUM TOTAL)(Performed 09/04/2017) * CBC W AUTO DIFFERENTIAL(Performed 09/04/2017) * XR ABDOMEN 2VW(Performed 09/03/2017) * XR THORACIC SPINE 2VW(Performed 09/03/2017) * XR LUMBAR SPINE 2 OR 3VW(Performed 09/03/2017) * PATHOLOGY TISSUE(Performed 09/03/2017) * FL JERRI SURGERY(Performed 09/03/2017) * ANTIBODY IDENTIFICATION(Performed 09/03/2017) * BONIFACIO DIRECT(Performed 09/03/2017) * TYPE + SCREEN PANEL(Performed 09/03/2017) * ANTIBODY IDENTIFICATION(Performed 09/03/2017) * PTT [facility](Performed 09/03/2017) * PT-INR [facility](Performed 09/03/2017) * BASIC METABOLIC PANEL (CALCIUM TOTAL)(Performed 09/03/2017) * CBC W AUTO DIFFERENTIAL(Performed 09/03/2017) * CBC W AUTO DIFFERENTIAL(Performed 09/03/2017) * XR ABDOMEN 2VW(Performed 04/22/2017) * XR LUMBAR SPINE 2 OR 3VW(Performed 04/22/2017) * XR THORACIC SPINE 2VW(Performed 04/22/2017) Results * (ABNORMAL) CBC W AUTO DIFFERENTIAL (06/15/2024 9:17 AM SIGNAL MECHANIC) Only the most recent of10 resultswithin the time period is included. WBC 6.9 4.0 - 10.7 x10E9/L 06/15/2024 10:18 AM [facility] RBC Count 4.22(L) 4.30 - 5.80 x10E12/L 06/15/2024 10:18 AM [facility] Hemoglobin 12.0(L) 13.3 - 17.5 g/dL 06/15/2024 10:18 AM [facility] Hematocrit 37.7(L) 38.7 - 51.1 % 06/15/2024 10:18 AM [facility] MCV 89.3 80.0 - 98.0 fL 06/15/2024 10:18 AM [facility] MCH 28.4 26.7 - 33.6 pg 06/15/2024 10:18 AM [facility] MCHC 31.8 31.7 - 36.3 g/dL 06/15/2024 10:18 AM [facility] RDW-CV 14.5 11.3 - 14.8 % 06/15/2024 10:18 AM [facility] Platelet Count 232 150 - 420 x10E9/L 06/15/2024 10:18 AM [facility] MPV 10.8 7.8 - 11.4 fL 06/15/2024 10:18 AM [facility] Neutrophil % 73.9 41.0 - 74.0 % 06/15/2024 10:18 AM [facility] Lymphocyte % 11.2(L) 17.0 - 47.0 % 06/15/2024 10:18 AM [facility] Monocyte % 11.1(H) 3.0 - 11.0 % 06/15/2024 10:18 AM [facility] Eosinophil % 3.1 0.0 - 7.0 % 06/15/2024 10:18 AM [facility] Basophil % 0.3 0.0 - 1.6 % 06/15/2024 10:18 AM [facility] Immature Granulocytes % 0.4 0.0 - 1.0 % 06/15/2024 10:18 AM [facility] Neutrophil Absolute 5.08 1.60 - 7.50 x10E9/L 06/15/2024 10:18 AM [facility] Lymphocyte Absolute 0.77(L) 1.00 - 4.40 x10E9/L 06/15/2024 10:18 AM [facility] Monocyte Absolute 0.76 0.15 - 1.00 x10E9/L 06/15/2024 10:18 AM [facility] Eosinophil Absolute 0.21 0.00 - 0.60 x10E9/L 06/15/2024 10:18 AM [facility] Basophil Absolute 0.02 0.00 - 0.13 x10E9/L 06/15/2024 10:18 AM [facility] Blood BLOOD SPECIMEN / Unknown Venipuncture / Unknown 06/15/2024 9:17 AM [facility] 06/15/2024 10:03 AM [facility] Eriberto Kumar MD LAB - HEMATOLOGY ORD ERABLES [address] [address], [facility] [phone] * (ABNORMAL) COMPREHENSIVE METABOLIC PANEL (06/15/2024 9:17 AM [facility]) BUN 11 7 - 26 mg/dL 06/15/2024 10:38 AM [facility] Creatinine 0.88 0.71 - 1.16 mg/dL 06/15/2024 10:38 AM [facility] Sodium 143 136 - 145 mmol/L 06/15/2024 10:38 AM [facility] Potassium 3.1(L) 3.5 - 4.5 mmol/L 06/15/2024 10:38 AM [facility] Chloride 110(H) 98 - 107 mmol/L 06/15/2024 10:38 AM [facility] CO2 25 22 - 29 mmol/L 06/15/2024 10:38 AM [facility] Glucose 108(H) 70 - 99 mg/dL 06/15/2024 10:38 AM [facility] Calcium 8.5 8.4 - 10.2 mg/dL 06/15/2024 10:38 AM [facility] Protein Total 6.5 6.0 - 8.3 g/dL 06/15/2024 10:38 AM [facility] Albumin 2.8(L) 3.4 - 5.0 g/dL 06/15/2024 10:38 AM [facility] Bilirubin Total 0.6 0.2 - 1.2 mg/dL 06/15/2024 10:38 AM [facility] Alkaline Phosphatase 103 40 - 150 U/L 06/15/2024 10:38 AM [facility] ALT 13 5 - 55 U/L 06/15/2024 10:38 AM [facility] AST 21 5 - 34 U/L 06/15/2024 10:38 AM [facility] Anion Gap 8 6 - 16 06/15/2024 10:38 AM [facility] BUN/Creatinine Ratio 13 7 - 23 06/15/2024 10:38 AM [facility] Osmolality Calculated 296(H) 275 - 295 mOsm/kg 06/15/2024 10:38 AM [facility] Albumin/Globulin Ratio 0.8(L) 1.1 - 2.3 06/15/2024 10:38 AM [facility] eGFR by CKD-EPI 90 >=90 mL/min/1.7 3 m2 06/15/2024 10:38 AM [facility] Blood BLOOD SPECIMEN / Unknown Venipuncture / Unknown 06/15/2024 9:17 AM SIGNAL MECHANIC 06/15/2024 10:03 AM SIGNAL MECHANIC Eriberto Kumar MD LAB - CHEMISTRY [facility] [address] [address], [place] [phone] * HEPATITIS C AB SCREEN RFLX NAAT QUANT (06/06/2024 11:49 AM SIGNAL MECHANIC) Hepatitis C Antibody Non-react lottie Non-reac tive 06/06/2024 1:01 PM SIGNAL MECHANIC [facility] Comment:Hepatitis C Antibody screen indicates no serologic evidence of past or current infection with Hepatitis C Virus. Patients with unexplained liver disease who are immunocompromised or suspected of having acute Hepatitis C infection may benefit from Nucleic Acid Test (NEIDA) for Hepatitis C Viral RNA to confirm Hepatitis C status. Blood BLOOD SPECIMEN / Unknown Lab Venipuncture / Unknown 06/06/2024 11:49 AM SIGNAL MECHANIC 06/06/2024 12:05 PM SIGNAL MECHANIC Salena MONTIEL LAB - CHEMISTRY [facility] Performing Organization Address City/[facility]/ZIP Co de Phone Number [address] [address], [place] [phone] * HIV-1 HIV-2 ANTIBODY + HIV P24 AG PANEL (06/06/2024 11:49 AM SIGNAL MECHANIC) HIV Antigen/Antibod y 1 & 2 Non-reacti ve Non-react lottie 06/06/2024 1:01 PM SIGNAL MECHANIC [facility] Comment:No Laboratory eviden ce of HIV infection. Blood BLOOD SPECIMEN / Unknown Lab Venipuncture / Unknown 06/06/2024 11:49 AM SIGNAL MECHANIC 06/06/2024 12:05 PM SIGNAL MECHANIC Salena MONTIEL LAB - CHEMISTRY [facility] WALK[facility] [address] [address], [place] [phone] * US Retroperitoneal Complete (06/05/2024 12:26 PM SIGNAL MECHANIC) Anatomical Region Laterality Modality Abdomen Ultrasound 06/05/2024 1:19 PM SIGNAL MECHANIC Impressions 06/05/2024 5:48 PM SIGNAL MECHANIC IMPRESSION: 1.The left kidney is not visualized due to overlying gas. 2.Normal right renal size. No sonographic evidence of nephrolithiasis, hydronephrosis, or solid renal mass. > Dictated by Karla Berry Dr, MD (consultant [employer] and [employer]. vice president [employer] (ex )). Travis Hilario MD have personally reviewed and interpreted this examination/study. > Interpreting Provider: Travis De Paz MD on 06/05/2024 5:48 PM Narrative 06/05/2024 5:48 PM SIGNAL MECHANIC PROCEDURE: US RETROPERITONEAL COMPLETE, DATE/TIME OF EXAM: 06/05/2024 12:27 PM, LOCATION [facility] INDICATION: Z46.2: End of battery life of [...] DATE/TIME OF EXAM: 06/05/2024 12:27 PM, LOCATION [facility] INDICATION: Z46.2: End of battery life of [...] > Dictated by Karla Berry Dr, MD (consultant [employer] and [employer]. vice president [employer] (ex )). ITravis MD have personally reviewed and interpreted this examination/study. > Interpreting Provider: Travis De Paz MD on 06/05/2024 5:48 PM Deshawn Schultz MD ORDERABLES * PREPARE (CROSSMATCH) RBC UNIT(S), 2 Units (06/05/2024 1:17 AM SIGNAL MECHANIC) Unit Description AS1 LR PRBC [facility] BLOOD BANK LAB Unit ABO O [facility] BLOOD [facility] LAB Unit POS [facility] BLOOD [facility] Product Number R02 [facility] B LOOD BANK LAB Unit Donor # [id number] [facility] BLOOD [facility] Unit Status released [facility] BLOO D BANK LAB Product Code [id number] [facility] BLO OD BANK LAB Blood Type Barcode 5100 [facility] BLOOD [facility] LAB Expiration Date S BLOOD BANK LAB Unit Description AS1 LR PRBC [facility] BLOOD [facility] LAB Unit ABO O [facility] BLOOD [facility] Unit POS [facility] BLOOD [facility] Product Number R02 [facility] B LOOD BANK LAB Unit Donor # [id number] [facility] BLOOD [facility] LAB Unit Status released [facility] BLOO D BANK LAB Product Code [id number] [facility] BLO OD BANK LAB Blood Type Barcode 5100 [facility] BLOOD [facility] LAB Expiration Date [facility] BLOOD B[facility] LAB Unit Description AS1 LR PRBC [facility] BLOOD B[facility] LAB Unit ABO O [facility] BLOOD [facility] Unit POS [facility] BLOOD [facility] LAB Product Number R02 [facility] B LOOD BANK LAB Unit Donor # [id number] [facility] BLOOD [facility] Unit Status released [facility] BLOO D BANK LAB Product Code [id number] [facility] BLO OD BANK LAB Blood Type Barcode 5100 [facility] BLOOD [facility] Expiration Date S BLOOD BANK LAB Unit Description AS1 LR PRBC [facility] BLOOD [facility] LAB Unit ABO O [facility] BLOOD [facility] LAB Unit POS [facility] BLOOD [facility] Product Number R02 [facility] B LOOD BANK LAB Unit Donor # [id number] [facility] BLOOD BANK LAB Unit Status released [facility] BLOO D BANK LAB Product Code [id number] [facility] BLO OD BANK LAB Blood Type Barcode 5100 [facility] BLOOD [facility] LAB Expiration Date [facility] BLOOD BANK LAB Blood Bank BLOOD SPECIMEN / Unknown 06/01/2024 1:07 AM SIGNAL MECHANIC Deshawn Schultz MD LAB - BLOOD BANK ORD ERABLES [facility] BLOOD [facility]ANK LAB [address] [place] [address], [facility] [phone] * ETT LINE PERFORMABLE (06/04/2024 8:58 AM SIGNAL MECHANIC) Narrative Kasi Potts Anes Asst - 06/04/2024 8:58 AM SIGNAL MECHANIC Kasi Potts Anes Asst 06/04/2024 8:58 AM Endotracheal Tube Placement: Patient Location: OR. Intubation Event Date/Time: 06/04/2024 7:55 AM Procedure: intubation ([id number]) Procedure Section: Sedation: under general anesthesia. Indications [...] * IV PLACEMENT PERFORMABLE (06/04/2024 8:57 AM SIGNAL MECHANIC) Narrative Kasi Potts Anes Asst - 06/04/2024 8:57 AM [facility] Kasi Potts Anes Asst 06/04/2024 8:57 AM Peripheral IV Line Placement: Patient Location: OR Insertion Time: 06/04/2024 8:49 AM Procedure: IV start ([id number]) Procedure Section: Skin Prep: alcohol. Orientation: right [...] GENERAL ANESTHESI A ORDERABLES * (ABNORMAL) PTT [facility] (06/04/2024 6:01 AM [facility]) Only the most recent of3 resultswithin the time period is included. APTT 38.8(H) 23.0 - 38.4 Seconds 06/04/2024 6:26 AM [facility] Comment:Suggested therapeuti c range for full dose I.V. unfractionated heparin therapy for venous thromboembolism is 71 to 109 seconds. Blood BLOOD SPECIMEN / Unknown Lab Venipuncture / Unknown 06/04/2024 6:01 AM SIGNAL MECHANIC 06/04/2024 6:06 AM SIGNAL MECHANIC Deshawn Schultz MD LAB - COAGULATION OR DERABLES Performing Organization Address City/State/[facility] Co de Phone Number [facility] [address] [place] [address], [facility] [phone] * PT-INR [facility] (06/04/2024 6:01 AM [facility]) Only the most recent of3 resultswithin the time period is included. PT 13.8 12.1 - 14.8 Seconds 06/04/2024 6:26 AM [facility] INR 1.1 See Comment 06/04/2024 6:26 AM [facility] Comment:The suggested therap eutic range for standard coumadin (warfarin) therapy is an INR of 2.0-3.0. For high-risk patients (Mechanical Mitral Valve Prosthesis, etc.), the suggested prophylactic therapeutic range is an INR of 2.5-3.5. Blood BLOOD SPECIMEN / Unknown Lab Venipuncture / Unknown 06/04/2024 6:01 AM SIGNAL MECHANIC 06/04/2024 6:06 AM SIGNAL MECHANIC Deshawn Schultz MD LAB - COAGULATION OR DERABLES Performing Organization Address City/State/[facility] Co de Phone Number [facility] [address] [place] [phone], [facility] [phone] * (ABNORMAL) URINALYSIS REFLEX TO MICROSCOPIC NO CULTURE (06/03/2024 5:41 AM SIGNAL MECHANIC) Only the most recent of8 resultswithin the time period is included. Color UA Straw Straw, Yellow 06/03/2024 6:15 AM [facility] Clarity UA Clear Clear 06/03/2024 6:15 AM [facility] Specific [place] UA 1.011 1.005 - 1.030 06/03/2024 6:15 AM [facility] pH UA 8.0 5.0 - 8.0 pH 06/03/2024 6:15 AM [facility] Protein UA Negative Negative 06/03/2024 6:15 AM [facility] Glucose UA Negative Negative 06/03/2024 6:15 AM [facility] Ketone UA Negative Negative 06/03/2024 6:15 AM [facility] Bilirubin UA Negative Negative 06/03/2024 6:15 AM [facility] Blood UA Negative Negative 06/03/2024 6:15 AM [facility] Nitrite UA Negative Negative 06/03/2024 6:15 AM [facility] Leukocyte Esterase Trace(A) Negative 06/03/2024 6:15 AM [facility] Urobilinogen UA Negative Negative mg/dL 06/03/2024 6:15 AM [facility] RBC UA None Seen None Seen, 0-2, 3-5 /HPF 06/03/2024 6:15 AM [facility] WBC UA 0-5 None Seen, 0-5 /HPF 06/03/2024 6:15 AM [facility] Squamous Epithelial Cells UA 0-2 None Seen, 0-2, 3-5 /HPF 06/03/2024 6:15 AM [facility] Urine URINE SPECIMEN OBTAINED VIA INDWELLING URINARY CATHETER / Unknown Collection / Unknown 06/03/2024 5:41 AM SIGNAL MECHANIC 06/03/2024 5:58 AM [facility] - 06/03/2024 6:15 AM SIGNAL MECHANIC Deshawn Schultz MD LAB - URINALYSIS ORD ERABLES [facility] [address] [place] [address], [facility] [phone] * (ABNORMAL) BASIC METABOLIC PANEL (CALCIUM TOTAL) (06/03/2024 1:35 AM SIGNAL MECHANIC) Only the most recent of5 resultswithin the time period is included. BUN 20 7 - 26 mg/dL 06/03/2024 2:55 AM [facility] Creatinine 0.90 0.71 - 1.16 mg/dL 06/03/2024 2:55 AM [facility] Sodium 139 136 - 145 mmol/L 06/03/2024 2:55 AM [facility] Potassium 3.6 3.5 - 4.5 mmol/L 06/03/2024 2:55 AM [facility] Chloride 104 98 - 107 mmol/L 06/03/2024 2:55 AM [facility] CO2 27 22 - 29 mmol/L 06/03/2024 2:55 AM [facility] Glucose 101(H) 70 - 99 mg/dL 06/03/2024 2:55 AM [facility] Calcium 8.2(L) 8.4 - 10.2 mg/dL 06/03/2024 2:55 AM [facility] Anion Gap 8 6 - 16 06/03/2024 2:55 AM [facility] BUN/Creatinine Ratio 22 7 - 23 06/03/2024 2:55 AM [facility] Osmolality Calculated 291 275 - 295 mOsm/kg 06/03/2024 2:55 AM SIGNAL MECHANIC [facility] eGFR by CKD-EPI 89(L) >=90 mL/min/1.7 3 m2 06/03/2024 2:55 AM [facility] Blood BLOOD SPECIMEN / Unknown Lab Venipuncture / Unknown 06/03/2024 1:35 AM SIGNAL MECHANIC 06/03/2024 2:27 AM SIGNAL MECHANIC Deshawn Schultz MD LAB - CHEMISTRY ANTONIO WALKER Performing Organization Address [facility] Co de Phone Number [address] [address] [phone] * (ABNORMAL) HEPATIC FUNCTION PANEL (06/03/2024 1:35 AM SIGNAL MECHANIC) Pathologist [facility] [place] Protein Total 6.5 6.0 - 8.3 g/dL 2:55 AM [facility] Albumin 2.9(L) 3.4 - 5.0 g/dL 06/03/2024 2:55 AM [facility] Bilirubin Total 0.6 0.2 - 1.2 mg/dL 05/07 2:55 AM [facility] Bilirubin Conjugated 0.2 0.1 - 0.5 mg/dL 06/03/2024 2:55 AM [facility] Bilirubin Unconjugated 0.4 Unconjugated Bilirubin is a calculated value: Reference ranges have not been established. mg/dL 06/03/2024 2:55 AM [facility] Alkaline Phosphatase 137 40 - 150 U/L 06/03/2024 2:55 AM [facility] ALT 14 5 - 55 U/L 06/03/2024 2:55 AM [facility] AST 17 5 - 34 U/L 06/03/2024 2:55 AM [facility] Albumin/Globulin Ratio 0.8(L) 1.1 - 2.3 06/03/2024 2:55 AM [facility] Blood BLOOD SPECIMEN / Unknown Lab Venipuncture / Unknown 06/03/2024 1:35 AM SIGNAL MECHANIC 06/03/2024 2:27 AM SIGNAL MECHANIC Marcy Mascorro MD LAB - CHEMISTRY ANTONIO WALKER [facility] [address] [place] [address], [facility] [phone] * (ABNORMAL) CULTURE URINE (06/01/2024 6:04 PM SIGNAL MECHANIC) Culture Urine 50,000-100,000 CFU/mL Escherichia coli extended-spectr um beta-lactamase (ESBL)(A) HA 06/04/2024 1:17 AM SIGNAL MECHANIC [facility] Urine SUPRAPUBIC URINE SPECIMEN / Unknown Collection / Unknown 06/01/2024 6:04 PM SIGNAL MECHANIC 06/01/2024 6:12 PM SIGNAL MECHANIC Narrative [facility] - 06/04/2024 1:17 AM SIGNAL MECHANIC Contact Precautions Required. Organism Antibiotic Method Susceptibility [...] Schultz MD LAB - MICROBIOLOGY O RDERABLES [facility] [address] [facility] [address] [place], [place] [address], [facility] [phone] * XR CHEST 1VW PORTABLE (06/01/2024 4:53 AM SIGNAL MECHANIC) Anatomical Region Laterality Modality Chest Digital Radiogra phy 06/01/2024 9:38 PM SIGNAL MECHANIC Impressions 06/01/2024 9:39 PM SIGNAL MECHANIC IMPRESSION: The cardiomediastinal silhouette is within normal limits for technique. There are mild bibasilar opacities, which may represent atelectasis or airspace disease. No large pleural effusion or pneumothorax is identified. > Interpreting Provider: Diamond Goldstein MD on 06/01/2024 9:39 PM Narrative 06/01/2024 9:39 PM SIGNAL MECHANIC PROCEDURE: XR CHEST 1VW PORTABLE DATE/TIME OF [...] TYPE + SCREEN PANEL (06/01/2024 12:55 AM SIGNAL MECHANIC) Only the most recent of2 resultswithin the time period is included. Antibody Screen POS 2:40 AM SIGNAL MECHANIC [facility] ABO Rh O POS 06/01/2024 2:40 AM SIGNAL MECHANIC [facility] Blood Bank BLOOD SPECIMEN / Unknown Lab Venipuncture / Unknown 06/01/2024 12:55 AM SIGNAL MECHANIC 06/01/2024 1:07 AM SIGNAL MECHANIC Deshawn Schultz MD LAB - BLOOD BANK ORD ERABLES [facility] [address] [place] [address], [facility] [phone] * BONIFACIO DIRECT (06/01/2024 12:55 AM SIGNAL MECHANIC) Only the most recent of2 resultswithin the time period is included. Direct Bonifacio (FIDEL) NEG 06/01/2024 3:17 AM SIGNAL MECHANIC [facility] LAB Blood Bank BLOOD SPECIMEN / Unknown Lab Venipuncture / Unknown 06/01/2024 12:55 AM SIGNAL MECHANIC 06/01/2024 1:07 AM SIGNAL MECHANIC Deshawn Schultz MD LAB - BLOOD BANK ORD ZION Performing Organization Address City/[facility]/ZIP Co de Phone Number [facility] [address] [place] [id number], [facility] [phone] * ANTIBODY IDENTIFICATION (06/01/2024 12:55 AM SIGNAL MECHANIC) Only the most recent of3 resultswithin the time period is included. Antibody 1 POS, Anti-e (little) 06/01/2024 3:57 AM SIGNAL MECHANIC [facility] B[facility] LAB Blood Bank BLOOD SPECIMEN / Unknown Lab Venipuncture / Unknown 06/01/2024 12:55 AM SIGNAL MECHANIC 06/01/2024 1:07 AM SIGNAL MECHANIC Deshawn Schultz MD LAB - BLOOD BANK ORD ZION Performing Organization Address City/[facility]/ZIP Co de Phone Number [facility] [address] [place] [phone], [facility] [phone] * PHOSPHORUS BLOOD (06/01/2024 12:55 AM SIGNAL MECHANIC) Phosphorus 3.9 2.8 - 5.1 mg/dL 06/01/2024 1:37 AM SIGNAL MECHANIC [facility] Blood BLOOD SPECIMEN / Unknown Lab Venipuncture / Unknown 06/01/2024 12:55 AM SIGNAL MECHANIC 06/01/2024 1:08 AM SIGNAL MECHANIC eDshawn Schultz MD LAB - CHEMISTRY ANTONIO WALKER [facility] [address] [place] [address], [facility] [phone] * MAGNESIUM BLOOD (06/01/2024 12:55 AM SIGNAL MECHANIC) Magnesium 2.1 1.6 - 2.6 mg/dL 06/01/2024 1:37 AM SIGNAL MECHANIC [facility] Blood BLOOD SPECIMEN / Unknown Lab Venipuncture / Unknown 06/01/2024 12:55 AM SIGNAL MECHANIC 06/01/2024 1:08 AM SIGNAL MECHANIC Deshawn Schultz MD LAB - CHEMISTRY ANTONIO WALKER [facility] Organization Address City/State/ZIP Co de Phone Number [place] [address] [place] [address], [facility] [phone] * XR Abdomen Kub Portable (06/01/2024 12:00 AM SIGNAL MECHANIC) Anatomical Region Laterality Modality Abdomen Digital Radiogra phy 06/01/2024 2:07 PM SIGNAL MECHANIC Impressions 06/01/2024 2:09 PM SIGNAL MECHANIC IMPRESSION: *A baclofen pump projects over the [...] 06/01/2024 2:09 PM Narrative 06/01/2024 2:09 PM SIGNAL MECHANIC PROCEDURE: XR ABDOMEN KUB PORTABLE DATE/TIME OF [...] Schultz MD DIAGNOSTIC IMAGING O RDERABLES * XR ABDOMEN 2VW (09/03/2017 3:39 PM SIGNAL MECHANIC) Only the most recent of2 resultswithin the time period is included. Anatomical Region Laterality Modality Other Narrative 09/03/2017 3:59 PM SIGNAL MECHANIC EXAMINATION: PX ABDOMEN 2 VW HISTORY: s/p baclofen pump revision COMPARISON: Comparison is made with a study from 04/22/2017. FINDINGS: One generator with leads and 1 infusion pump with a small catheter are seen projecting over the right and left lower quadrant. The inferior vena cava filter is reidentified. Dilated gas-filled large bowel is seen measuring up to 13 cm in diameter, slightly increased since 04/22/2017. This could represent ileus or distal obstruction. Dictated by Alejandrina Pedro MD (consultant luxury and [employer]. vice president [employer] (ex )). Dr. IRINEO Hilario MD have personally reviewed and interpreted this examination/study. This report was electronically signed by IRINEO NG MD on 09/03/2017 3:59 PM . Procedure Note Irineo Ng MD - 10/06/2017 EXAMINATION: PX ABDOMEN 2 VW HISTORY: s/p baclofen pump revision COMPARISON: Comparison is made with a study from 04/22/2017. FINDINGS: One generator with leads and 1 infusion pump with a small catheter areseen projecting over the right and left lower quadrant. The inferior venacava filter is reidentified. Dilated gas-filled large bowel is seen measuring up to 13 cm in diameter,slightly increased since 04/22/2017. This could represent ileus or distalobstruction. Dictated by Alejandrina Pedro MD (consultant luxury and auto. vice president [employer] (ex )). Dr. IRINEO Hilario MD have personally reviewed and interpreted thisexamination/study. This report was electronically signed by IRINEO NG MD on 09/03/20173:59 PM . Angelica Mckenzie PA-C DIAGNOSTIC IVJI GING ORDERABLES * XR THORACIC SPINE 2VW (09/03/2017 3:37 PM SIGNAL MECHANIC) Only the most recent of2 resultswithin the time period is included. Anatomical Region Laterality Modality Spine Other Impressions 09/03/2017 3:51 PM SIGNAL MECHANIC IMPRESSION: Exam limited by crosstable lateral technique. Multiple anterior wedge deformity involving the midthoracic spine vertebrae. Dictated by Jd Scales MD (consultant luxury and auto. vice president [employer] (ex )). Dr. PACHECO Hilario M.D. have personally reviewed and interpreted this examination/study. This report was electronically signed by PACHECO MARTIN M.D. on 09/03/2017 3:51 PM . Narrative 09/03/2017 3:51 PM SIGNAL MECHANIC EXAMINATION: PX SPINE THORACIC 2 VWS HISTORY: s/p baclofen pump revision FINDINGS: Comparison made to study from 04/22/2017. The lateral view was performed using crosstable lateral technique. Upper thoracic spine is not well-visualized on the lateral view due to overlying ribs. The vertebral bodies are normally aligned. Anterior wedge deformity of multiple mid thoracic spine vertebrae with increased resultant kyphosis is demonstrated. There is mild multilevel degenerative disc disease. An IVC filter projects over the the right of L2-3. Procedure Note Pacheco Martin MD - 10/06/2017 EXAMINATION: PX SPINE THORACIC 2 VWS HISTORY: s/p baclofen pump revision FINDINGS: Comparison made to study from 04/22/2017. The lateral view was performed using crosstable lateral technique. Upper thoracic spine is not well-visualized on the lateral view due tooverlying ribs. The vertebral bodies are normally aligned. Anterior wedge deformity ofmultiple mid thoracic spine vertebrae with increased resultant kyphosis isdemonstrated. There is mild multilevel degenerative disc disease. An IVCfilter projects over the the right of L2-3. IMPRESSION IMPRESSION: Exam limited by crosstable lateral technique. Multiple anterior wedge deformity involving the midthoracic spinevertebrae. Dictated by Jd Scales MD (consultant luxury and auto. vice president [employer] (ex )). Dr. PACHECO Hilario M.D. have personally reviewed and interpreted thisexamination/study. This report was electronically signed by PACHECO MARTIN M.D. on 09/03/20173:51 PM . Angelica LAZAR-Talon DIAGNOSTIC VIJI GING ORDERABLES * XR LUMBAR SPINE 2 OR 3VW (09/03/2017 3:25 PM SIGNAL MECHANIC) Only the most recent of2 resultswithin the time period is included. Anatomical Region Laterality Modality Spine Other Impressions 09/03/2017 3:54 PM SIGNAL MECHANIC IMPRESSION: Comparison made to study from 04/22/2017. A baclofen pump projects over the abdomen with catheters projecting over the sacrum on the frontal view. The pump is seen only on the cross table lateral view, though the catheter is incompletely visible. An abdominal radiograph may be considered for more complete evaluation of the pump and catheter. An IVC filter projects over the right of L2-3, unchanged. The vertebral bodies are normally aligned. There is no fracture or compression deformity. Mild multilevel endplate sclerosis is seen. Dictated by Jd Scales MD (consultant luxury and auto. vice president [employer] (ex )). Dr. PACHECO Hilario M.D. have personally reviewed and interpreted this examination/study. This report was electronically signed by PACHECO MARTIN M.D. on 09/03/2017 3:54 PM . Narrative 09/03/2017 3:54 PM SIGNAL MECHANIC EXAMINATION: PX SPINE LUMBAR 2 OR 3 VWS HISTORY: s/p baclofen pump revision FINDINGS/ Procedure Note Pacheco Martin MD - 10/06/2017 EXAMINATION: PX SPINE LUMBAR 2 OR 3 VWS HISTORY: s/p baclofen pump revision FINDINGS/ IMPRESSION IMPRESSION: Comparison made to study from 04/22/2017. A baclofen pump projects over the abdomen with catheters projecting overthe sacrum on the frontal view. The pump is seen only on the cross tablelateral view, though the catheter is incompletely visible. An abdominalradiograph may be considered for more complete evaluation of the pump and catheter. An IVC filter projects over the right of L2-3, unchanged. The vertebral bodies are normally aligned. There is no fracture orcompression deformity. Mild multilevel endplate sclerosis is seen. Dictated by Jd Scales MD (consultant luxury and auto. vice president [employer] (ex )). Dr. PACHECO Hilario M.D. have personally reviewed and interpreted thisexamination/study. This report was electronically signed by PACHECO MARTIN M.D. on 09/03/20173:54 PM . Angelica LAZAR-Talon DIAGNOSTIC VIJI GING ORDERABLES * PATHOLOGY TISSUE (09/03/2017 12:37 PM SIGNAL MECHANIC) Pathologist [facility] [place] Surgical Pathology Tissue ACCESSION No: [id number] CLINICAL HISTORY: Back muscle spasticity. FINAL DIAGNOSIS: Foreign object, certified medical technician assistant, removal: - Baclofen pump and pump catheter (gross diagnosis) MICROSCOPIC DESCRIPTION AND COMMENT: None. MH/ED/edk GROSS DESCRIPTION: The specimen is received in one container without fixative for gross only examination, labeled with the patient's name, Tai Amado, and Baclofen pump and pump catheter for gross only . The specimen consists of a thin flexible, white tubing made of rubber marked at 1.0 cm intervals, with numbers by each corinne starting at 23 and going to 80. It measures 72.0 cm in length with a diameter of 0.1 cm. At the 80.0 cm end there is a 1.0 cm circular device where it can connect to the Baclofen pump. Also submitted in the same container is a metal spherical certified medical technician assistant which measures 8.0 cm in diameter and has a height of 2.5 cm. There is a central circular area which measures 1.2 cm. Written on the metal device is: [employer] SYNCHROMED (r in a new koliganek) II PROGRAMABLE PUMP 8637-40 SN [id number] [employer] [facility] ED/edk The performance characteristics of all immunohistochemical and indirect immunofluorescence stains (if any) cited in this report were determined by the Histopathology Laboratory of [facility]. Some of these tests were developed by our own laboratory and have not been cleared or approved by the US Food and Drug Administration. The FDA does not require this test to go through premarket FDA review. These tests are used for clinical purposes. They should not be regarded as investigational or for research. This laboratory is certified under the Clinical Laboratory Improvement Amendments (CLIA) as qualified to perform high complexity clinical laboratory testing. This case has been personally reviewed and interpreted by the attending (teaching) pathologist. Final Diagnosis performed by Rhona Ziegler M.D. Electronically signed 09/07/2017 [facility] Removal MISCELLANEOUS SAMPLES / Unknown 09/03/2017 12:37 PM SIGNAL MECHANIC 09/03/2017 2:04 PM SIGNAL MECHANIC Narrative [facility] - 09/07/2017 6:23 PM SIGNAL MECHANIC Pre-op diagnosis: muscle spasticity Inessa Barrios MD LAB - PATHOLOGY/CYTO LOGY ORDERABLES [facility] [address] [place] [address], [facility] [phone] * [place] JERRI SURGERY (09/03/2017 12:24 PM SIGNAL MECHANIC) Anatomical Region Laterality Modality Other Narrative 09/03/2017 12:24 PM SIGNAL MECHANIC Fluoroscopy was used for this exam. Please see the Operative report. Procedure Note Provider, MD Trice - 10/06/2017 Fluoroscopy was used for this exam. Please see the Operative report. Inessa Barrios MD FLUOROSCOPY ORDERABL Care Teams Street Inspector Relationship Specialty Start Date End Date Rod Strauss MD [address] [place] [id number] PCP - General Internal Medicine 06/15/24
--- OUTSIDE RECORDS SUMMARY | 2024-08-11 12:50 | XMS_ITS | Clinical Summary ---
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 06/21/2024 5:41 AM GENERAL ADJUSTER BLOOD CULTURE Routine 06/21/2024 5:41 AM GENERAL ADJUSTER BLOOD CULTURE Routine 06/21/2024 5:41 AM GENERAL ADJUSTER TROPONIN I HIGH-SENSITIVITY 2-HOUR Timed 06/21/2024 4:14 AM GENERAL ADJUSTER URINALYSIS, MICROSCOPIC ONLY STAT 06/21/2024 4:12 AM GENERAL ADJUSTER URINE CULTURE Routine 06/21/2024 4:12 AM GENERAL ADJUSTER URINALYSIS AND REFLEX TO MICROSCOPIC AND CULTURE STAT 06/21/2024 4:12 AM GENERAL ADJUSTER ECG 12-LEAD Routine 06/21/2024 2:[address] HEAD WO CONTRAST ED 06/21/2024 1 :[address] ABDOMEN PELVIS W CONTRAST ED 06/21/2024 1:33 AM GENERAL ADJUSTER XR CHEST 1 VIEW ED 06/21/2024 1:30 AM GENERAL ADJUSTER RESPIRATORY PATHOGEN PANEL Routine 06/21/2024 1:13 AM GENERAL ADJUSTER POCT CREATININE - DEVICE Routine 06/21/2024 12:41 AM GENERAL ADJUSTER EGFR STAT 06/21/2024 12:33 AM GENERAL ADJUSTER DIFFERENTIAL AUTO Routine 06/21/2024 12: 33 AM GENERAL ADJUSTER LIPASE STAT 06/21/2024 12:33 AM GENERAL ADJUSTER TROPONIN I HIGH-SENSITIVITY SERIES (BASELINE, 2HR, 4HR, 6HR) STAT 06/21/2024 12:33 AM GENERAL ADJUSTER MAGNESIUM Routine 06/21/2024 12:33 AM GENERAL ADJUSTER COMPREHENSIVE METABOLIC PANEL STAT 06/21/2024 12:33 AM GENERAL ADJUSTER CBC WITH AUTO DIFFERENTIAL Routine 06/21/2024 12:33 AM GENERAL ADJUSTER XR SHOULDER RIGHT 2 OR MORE VIEWS ED Urgent/IP Urgent 05/17/2024 6:52 PM GENERAL ADJUSTER COLONOSCOPY 01/01/2020 8:32 AM CDT from Last 3 Months or Most Recently Relevant to Health Maintenance Results * Differential, auto (06/22/2024 8:59 PM GENERAL ADJUSTER) Neutrophil abs 5.7 1.5 - 6.5 K/cumm Imm gran abs 0.0 0.0 - 0.1 K/cumm [facility] Lymphocyte abs 0.9 0.8 - 3.3 K/cumm [facility] Monocyte abs 0.7 0.2 - 0.8 K/cumm [facility] Eosinophil abs 0.2 0.0 - 0.5 K/cumm [facility] Basophil abs 0.0 0.0 - 0.1 K/cumm [facility] Neutrophil pct 76.3 % [facility] Comment: Interpretive Data Percent cell count reference ranges are not reported, since discordance with absolute values may lead to misinterpretation of CBC data. Current Interpretive Data was last revised on 2017. Imm gran pct 0.4 % [facility] Comment: Interpretive Data Percent cell count reference ranges are not reported, since discordance with absolute values may lead to misinterpretation of CBC data. Current Interpretive Data was last revised on 2017. Lymphocyte pct 11.5 % [facility] Comment: Interpretive Data Percent cell count reference ranges are not reported, since discordance with absolute values may lead to misinterpretation of CBC data. Current Interpretive Data was last revised on 2017. Monocyte pct 9.5 % [facility] Comment: Interpretive Data Percent cell count reference ranges are not reported, since discordance with absolute values may lead to misinterpretation of CBC data. Current Interpretive Data was last revised on 2017. Eosinophil pct 2.0 % [facility] Comment: Interpretive Data Percent cell count reference ranges are not reported, since discordance with absolute values may lead to misinterpretation of CBC data. Current Interpretive Data was last revised on 2017. Basophil pct 0.3 % [facility] Comment: Interpretive Data Percent cell count reference ranges are not reported, since discordance with absolute values may lead to misinterpretation of CBC data. Current Interpretive Data was last revised on 2017. Blood 06/22/2024 8:59 PM GENERAL ADJUSTER 06/22/2024 9:14 PM GENERAL ADJUSTER Adalberto Rogers MD LAB BLOOD ORDERABLES Johanne l Result [facility] [place] [address] * (ABNORMAL) CBC with auto differential (06/22/2024 8:59 PM GENERAL ADJUSTER) WBC 7.5 3.8 - 9.9 K/cumm Hgb 10.3(L) 13.0 - 17.5 g/dL [facility] Hct 32.6(L) 38.9 - 50.3 % [facility] Plt 226 150 - 400 K/cumm [facility] MPV 10.9 9.1 - 12.3 fL [facility] RBC 3.63(L) 4.30 - 5.80 M/cumm [facility] MCV 89.8 81.3 - 96.4 fL [facility] MCH 28.4 27.1 - 33.3 pg [facility] MCHC 31.6(L) 32.3 - 35.7 g/dL [facility] RDW CV 15.2(H) 11.1 - 14.9 % [facility] RDW SD 49.4(H) 35.7 - 48.1 fL [facility] NRBC abs 0.00 0.00 - 0.01 K/cumm [facility] Blood 06/22/2024 8:59 PM GENERAL ADJUSTER 06/22/2024 9:14 PM GENERAL ADJUSTER Adalberto Rogers MD LAB BLOOD ORDERABLES Johanne l Result [facility] [place] [address] * eGFR (06/22/2024 5:06 AM GENERAL ADJUSTER) [facility] eGFR >90 >=60 mL/min/1. 73 m2 Comment: [...] last reviewed 2021. Blood 06/22/2024 5:06 AM GENERAL ADJUSTER 06/22/2024 5:17 AM GENERAL ADJUSTER us Rayray LAZAR LAB BLOOD ORDERABL ES Final Result [facility] Department [place] [address] * (ABNORMAL) Differential, auto (06/22/2024 5:06 AM GENERAL ADJUSTER) [facility] Neutrophil abs 6.9(H) 1.5 - 6.5 K/cumm Imm gran abs 0.0 0.0 - 0.1 K/cumm [facility] Lymphocyte abs 0.5(L) 0.8 - 3.3 K/cumm [facility] Monocyte abs 0.7 0.2 - 0.8 K/cumm [facility] Eosinophil abs 0.2 0.0 - 0.5 K/cumm [facility] Basophil abs 0.0 0.0 - 0.1 K/cumm [facility] Neutrophil pct 82.3 % [facility] Comment: Interpretive Data Percent cell count reference ranges are not reported, since discordance with absolute values may lead to misinterpretation of CBC data. Current Interpretive Data was last revised on 2017. Imm gran pct 0.4 % [facility] Comment: Interpretive Data Percent cell count reference ranges are not reported, since discordance with absolute values may lead to misinterpretation of CBC data. Current Interpretive Data was last revised on 2017. Lymphocyte pct 6.4 % [facility] Comment: Interpretive Data Percent cell count reference ranges are not reported, since discordance with absolute values may lead to misinterpretation of CBC data. Current Interpretive Data was last revised on 2017. Monocyte pct 8.6 % [facility] Comment: Interpretive Data Percent cell count reference ranges are not reported, since discordance with absolute values may lead to misinterpretation of CBC data. Current Interpretive Data was last revised on 2017. Eosinophil pct 1.9 % [facility] Comment: Interpretive Data Percent cell count reference ranges are not reported, since discordance with absolute values may lead to misinterpretation of CBC data. Current Interpretive Data was last revised on 2017. Basophil pct 0.4 % [facility] Comment: Interpretive Data Percent cell count reference ranges are not reported, since discordance with absolute values may lead to misinterpretation of CBC data. Current Interpretive Data was last revised on 2017. Blood 06/22/2024 5:06 AM GENERAL ADJUSTER 06/22/2024 5:17 AM GENERAL ADJUSTER us Rayray LAZAR LAB BLOOD ORDERABL ES Final Result [facility] [place] [address] * Thyroid Function [place] (06/22/2024 5:06 AM GENERAL ADJUSTER) TSH 2.28 0.30 - 4.20 mcIUnit/mL Blood 06/22/2024 5:06 AM GENERAL ADJUSTER 06/22/2024 5:17 AM GENERAL ADJUSTER us Adalberto Cervantes MD LAB BLOOD ORDERABLES Final Res ult Performing Organization Address [facility] Co de Phone Number [facility] Department [place] [address] * (ABNORMAL) CBC with auto differential (06/22/2024 5:06 AM GENERAL ADJUSTER) [facility] WBC 8.4 3.8 - 9.9 K/cumm Hgb 11.2(L) 13.0 - 17.5 g/dL [facility] Hct 35.3(L) 38.9 - 50.3 % [facility] Plt 244 150 - 400 K/cumm [facility] MPV 10.3 9.1 - 12.3 fL [facility] RBC 3.91(L) 4.30 - 5.80 M/cumm [facility] MCV 90.3 81.3 - 96.4 fL [facility] MCH 28.6 27.1 - 33.3 pg [facility] MCHC 31.7(L) 32.3 - 35.7 g/dL [facility] RDW CV 15.2(H) 11.1 - 14.9 % [facility] RDW SD 50.5(H) 35.7 - 48.1 fL [facility] NRBC abs 0.00 0.00 - 0.01 K/cumm [facility] Blood 06/22/2024 5:06 AM GENERAL ADJUSTER 06/22/2024 5:17 AM GENERAL ADJUSTER us Rayray LAZAR LAB BLOOD ORDERABL ES Final Result Performing Organization Address [facility]/ZIP Co de Phone Number [facility] Department [place] [address] * Vitamin D 25 hydroxy (06/22/2024 5:06 AM GENERAL ADJUSTER) [facility] Vitamin D 25-OH 33 30 - 80 ng/mL Blood 06/22/2024 5:06 AM GENERAL ADJUSTER 06/22/2024 5:17 AM GENERAL ADJUSTER us Adalberto Cervantes MD LAB BLOOD ORDERABLES Final Res ult [facility] Department [place] [address] * (ABNORMAL) Basic metabolic panel (06/22/2024 5:06 AM GENERAL ADJUSTER) Sodium 145 135 - 145 mmol/L Potassium, pl 3.8 3.3 - 4.9 mmol/L [facility] Chloride 107 97 - 110 mmol/L [facility] CO2 31 22 - 32 mmol/L [facility] Anion gap 7 2 - 15 mmol/L [facility] BUN 21 6 - 25 mg/dL [facility] Creatinine 0.69(L) 0.80 - 1.30 mg/dL [facility] Glucose 86 70 - 199 mg/dL [facility] Comment: Interpretive Data Fasting glucose >/= [...] 2022. Calcium 8.4(L) 8.5 - 10.3 mg/dL [facility] Blood 06/22/2024 5:06 AM GENERAL ADJUSTER 06/22/2024 5:17 AM GENERAL ADJUSTER us Rayray LAZAR LAB BLOOD ORDERABL ES Final Result Performing Organization Address City/[facility]/ZIP Co de Phone Number [facility] [place] [address] * (ABNORMAL) Iron profile w/ IBC (06/21/2024 5:41 AM GENERAL ADJUSTER) Iron 34(L) 50 - 150 mcg/dL TIBC 181(L) 250 - 400 mcg/dL [facility] Transferrin saturation 19(L) 20 - 50 % [facility] Blood 06/21/2024 5:41 AM GENERAL ADJUSTER 06/21/2024 5:49 AM GENERAL ADJUSTER us Estrella Moreno MD LAB BLOOD ORDERA BLES Final Result Performing Organization Address [facility] Co de Phone Number [facility] [place] [address] * Blood culture Blood (06/21/2024 5:41 AM GENERAL ADJUSTER) Report Final Report: No growth Blood 06/21/2024 5:41 AM GENERAL ADJUSTER 06/21/2024 6:17 AM GENERAL ADJUSTER Narrative [facility] - 06/25/2024 7:01 AM GENERAL ADJUSTER Collection->Peripheral first location 1. Blood cultures are [...] performance characteristics have been verified by the [facility]. For questions about this culture, contact the Microbiology Laboratory at [phone]. Interpretive data was last revised on 24. Estrella Moreno MD LAB MICROBIOLOGY - GENERAL ORDERABLES Final Result Performing Organization Address City/[facility]/ZIP Co de Phone Number [facility] Department [place] [address] * Blood culture Blood (06/21/2024 5:41 AM GENERAL ADJUSTER) Report Final Report: No growth Blood 06/21/2024 5:41 AM GENERAL ADJUSTER 06/21/2024 6:17 AM GENERAL ADJUSTER Narrative [facility] - 06/25/2024 7:00 AM GENERAL ADJUSTER Collection->Peripheral first location 1. Blood cultures are [...] performance characteristics have been verified by the [facility]. For questions about this culture, contact the Microbiology Laboratory at [phone]. Interpretive data was last revised on 24. Estrella Moreno MD LAB MICROBIOLOGY - GENERAL ORDERABLES Final Result Performing Organization Address [facility] Co de Phone Number [facility] Department [place] [address] * (ABNORMAL) Reticulocyte Count (06/21/2024 5:41 AM GENERAL ADJUSTER) Retics, absolute 0.067 0.020 - 0.087 M/cumm Retics 1.6 0.4 - 2.9 % [facility] Reticulocyte Hgb 30.3(L) 30.5 - 38.0 pg [facility] Blood 06/21/2024 5:41 AM GENERAL ADJUSTER 06/21/2024 5:49 AM GENERAL ADJUSTER Estrella Moreno MD LAB BLOOD ORDERA BLES Final Result [facility] Department [place] [address] * Folate (06/21/2024 5:41 AM GENERAL ADJUSTER) Pathologist [facility] Folic acid >20.0 >=5.0 ng/mL Blood 06/21/2024 5:41 AM GENERAL ADJUSTER 06/21/2024 5:49 AM GENERAL ADJUSTER Estrella Moreno MD LAB BLOOD ORDERA BLES Final Result Performing Organization Address [facility] Co de Phone Number [facility] Department [place] [address] * Ferritin (06/21/2024 5:41 AM GENERAL ADJUSTER) Pathologist [facility] Ferritin 233 30 - 400 ng/mL Blood 06/21/2024 5:41 AM GENERAL ADJUSTER 06/21/2024 5:49 AM GENERAL ADJUSTER Estrella Moreno MD LAB BLOOD ORDERA BLES Final Result Performing Organization Address City/[facility] Co de Phone Number [facility] Department [place] [address] * Vitamin B12 (06/21/2024 5:41 AM GENERAL ADJUSTER) Vitamin B12 721 230 - 1,250 pg/mL Blood 06/21/2024 5:41 AM GENERAL ADJUSTER 06/21/2024 5:49 AM GENERAL ADJUSTER us Estrella Moreno MD LAB BLOOD ORDERA BLES Final Result Performing Organization Address [facility] Co de Phone Number [facility] Department [place] [address] * Troponin I high-sensitivity 2-hour (06/21/2024 4:14 AM GENERAL ADJUSTER) Trop I hs 11 <=35 ng/L Comment: Interpretive Data For further hscTnI resources including the diagnostic algorithm and an aid in interpretation, copy and paste this link: https://bjhlab.testcatalog.org/show/hsTrop-1 Current Interpretive Data last revised 2020. Trop I hs delta See Comment ng/L [facility] Comment:Inappropriate collec tion time to report a delta. Trop I hs pct delta See Comment % [facility] Comment:Inappropriate collec tion time to report a delta. Trop I hs interp See Comment [facility] Comment:Inappropriate collec tion time to report a delta. Blood 06/21/2024 4:14 AM GENERAL ADJUSTER 06/21/2024 4:43 AM GENERAL ADJUSTER us Jefferson Downing MD LAB BLOOD ORDERABLES Final Res ult Performing Organization Address [facility] de Phone Number [facility] Department [place] [address] * (ABNORMAL) Urinalysis reflex to microscopic and culture Urine (06/21/2024 4:12 AM GENERAL ADJUSTER) Color, ur Straw Yellow Clarity, ur Clear Clear [facility] Specific gravity, ur >1.042(H) 1.003 - 1.030 [facility] pH, urine 7.0 [facility] Comment: Interpretive Data U rine pH is affected by diet, medications, systemic acid-base disturbances, and renal tubular function. pH may affect urinary stone formation. For example, urine pH below 6.0 may help reduce the tendency for calcium phosphate stones and pH greater than 6.0 may reduce the tendency for uric acid stone formation. Source: [facility] Current Interpretive Data was last revised on 2017 Protein, ur ql Trace Negative [facility] Glucose, ur ql Negative Negative [facility] Ketones, ur 1+(A) Negative [facility] Bilirubin, ur Negative Negative [facility] Blood, ur 3+(A) Negative [facility] Urobilinogen, ur <2.0 <2.0 mg/dL [facility] Nitrite, ur Negative Negative [facility] Leukocyte esterase, ur Trace(A) Negative [facility] UA reflex comment Reflex to microscopic UA will be performed. [facility] Urine 06/21/2024 4:12 AM GENERAL ADJUSTER 06/21/2024 4:30 AM GENERAL ADJUSTER Jefferson Downing MD LAB MICROBIOLOGY - GENERAL ORD ERABLES Final Result Performing Organization Address [facility] de Phone Number [facility] Department [place] [address] * (ABNORMAL) Urinalysis, microscopic only (06/21/2024 4:12 AM GENERAL ADJUSTER) WBC, ur 6-10(A) 0 - 5 /HPF RBC, ur 21-50(A) 0 - 2 /HPF [facility] Epithelial cells, squamous, ur 1-5 0 - 5 /HPF [facility] Epithelial cells, renal, ur 1-5(A) 0 - 0 /HPF [facility] Mucous, ur Present(A) [facility] Culture Reflex Comment Reflex conditions for urine culture (WBC >10) not met. [facility] Urine 06/21/2024 4:12 AM GENERAL ADJUSTER 06/21/2024 4:30 AM GENERAL ADJUSTER us Jefferson Downing MD LAB URINE ORDERABLES Final Res ult Performing Organization Address [facility] Co de Phone Number [facility] Department [place] [address] * Urine culture Urine (06/21/2024 4:12 AM GENERAL ADJUSTER) Report Final Report: Less than 100,000 colonies/mL (clinically insignificant growth based on current clinical standards) Organism (CLINICALLY INSIGNIFICANT GROWTH [facility] Urine 06/21/2024 4:12 AM GENERAL ADJUSTER 06/21/2024 9:25 AM GENERAL ADJUSTER Narrative [facility] - 06/22/2024 11:28 AM GENERAL ADJUSTER Testing performed by [facility] ([phone]) us Ivan Robles MD LAB MICROBIOLOGY - GENER AL ORDERABLES Final Result [facility] [place] [address] * ECG 12-LEAD (06/21/2024 2:28 AM GENERAL ADJUSTER) Narrative [facility] - 06/21/2024 2:28 AM GENERAL ADJUSTER Pritesh Demarco MD 06/21/2024 2:29 AM ECG [...] Downing MD ECG ORDERABLES Final Result [facility] * CT Abdomen Pelvis W Contrast (06/21/2024 1:33 AM GENERAL ADJUSTER) Anatomical Region Laterality Modality Body N/A Computed Tomogra phy 06/21/2024 2:18 AM GENERAL ADJUSTER Impressions 06/21/2024 11:10 AM GENERAL ADJUSTER 1. Findings of rectosigmoid colitis with associated [...] Maryjo Arcos M.D. Narrative 06/21/2024 11:10 AM GENERAL ADJUSTER EXAMINATION: Computed tomography of the abdomen and [...] by: Maryjo Arcos M.D. Jefferson Downing MD IM CT PROCEDURES Final Result * CT Head WO Contrast (06/21/2024 1:33 AM GENERAL ADJUSTER) Anatomical Region Laterality Modality Head and Neck N/A Computed Tomogra phy 06/21/2024 2:01 AM GENERAL ADJUSTER Impressions 06/21/2024 3:13 PM GENERAL ADJUSTER No acute intracranial process. Dictated by: Ariel Harris MD The radiology attending physician has personally reviewed this study, and had reviewed and/or edited this written report and agrees with it. Electronically signed by: Willis Grant MD, PHD Narrative 06/21/2024 3:13 PM GENERAL ADJUSTER EXAMINATION: CT head without contrast HISTORY: Mental [...] Electronically signed by: Willis Grant MD, PHD Jefferson Downing MD IMG CT PROCEDURES Final Result * XR Chest 1 View (06/21/2024 1:30 AM GENERAL ADJUSTER) Anatomical Region Laterality Modality Body, Chest N/A Computed Radiogr aphy 06/21/2024 2:20 AM GENERAL ADJUSTER Impressions 06/21/2024 12:15 PM GENERAL ADJUSTER Comparison 04/23/2024. The cardiac silhouette is mildly [...] Maryjo Arcos M.D. Narrative 06/21/2024 12:15 PM GENERAL ADJUSTER EXAMINATION: 1 view chest radiograph Procedure Note [...] Respiratory pathogen panel Nasopharyngeal (06/21/2024 1:13 AM GENERAL ADJUSTER) Pathologist [facility] Influenza A RNA Not Detected Not Detected Influenza B RNA Not Detected Not Detected [facility] RSV RNA Not Detected Not Detected [facility] COVID-19 RNA Not Detected Not Detected [facility] Coronavirus 229E RNA Not Detected Not Detected [facility] Coronavirus HKU1 RNA Not Detected Not Detected [facility] Coronavirus NL63 RNA Not Detected Not Detected [facility] Coronavirus OC43 RNA Not Detected Not Detected [facility] Adenovirus DNA Not Detected Not Detected [facility] Metapneumovirus RNA Not Detected Not Detected [facility] Rhinovirus/Enterov irus RNA Not Detected Not Detected [facility] Parainfluenza 1 RNA Not Detected Not Detected [facility] Parainfluenza 2 RNA Not Detected Not Detected [facility] Parainfluenza 3 RNA Not Detected Not Detected [facility] Parainfluenza 4 RNA Not Detected Not Detected [facility] B. pertussis DNA Not Detected Not Detected [facility] B. parapertussis DNA Not Detected Not Detected [facility] C. pneumoniae DNA Not Detected Not Detected [facility] M. pneumoniae DNA Not Detected Not Detected [facility] Nasopharyngeal 06/21/2024 1: 13 AM GENERAL ADJUSTER 06/21/2024 1:29 AM GENERAL ADJUSTER Narrative [facility] - 06/21/2024 3:16 AM GENERAL ADJUSTER Is the Patient experiencing symptoms consistent with COVID?->No Surveillance testing for transplant patient?->No Interpretive Data The [employer] FilmArray Respiratory Panel (RP2.1) assay is a [...] assay has FDA clearance for testing of SAMPLE [employer]ER swabs. The performance of additional specimen types has been assessed by the performing laboratory. The performance characteristics of this assay have been determined by [facility]. Current interpretive data was last revised on 22. us Jefferson Downing MD LAB MICROBIOLOGY - GENERAL ORD ERABLES Final Result [facility] [place] [address] * POCT creatinine (06/21/2024 12:41 AM GENERAL ADJUSTER) Creatinine POC 1.0 0.7 - 1.3 mg/dL Blood 06/21/2024 12:4 1 AM GENERAL ADJUSTER 06/21/2024 12:41 AM GENERAL ADJUSTER Pritesh Demarco MD LAB POCT ORDERABLES - CATRACHITO CE Final Result Performing Organization Address [facility] Co de Phone Number [facility] Department [place] [address] * Troponin I high-sensitivity series (baseline, 2hr, 4hr, 6hr) (06/21/2024 12:33 AM GENERAL ADJUSTER) Trop I hs 14 <=35 ng/L Comment: Interpretive Data For further hscTnI resources including the diagnostic algorithm and an aid in interpretation, copy and paste this link: https://bjhlab.testcatalog.org/show/hsTrop-1 Current Interpretive Data last revised 2020. Blood 06/21/2024 12:3 3 AM GENERAL ADJUSTER 06/21/2024 12:51 AM GENERAL ADJUSTER Jefferson Downing MD LAB BLOOD ORDERABLES Final Res ult Performing Organization Address [facility] Co de Phone Number [facility] [place] [address] * eGFR (06/21/2024 12:33 AM GENERAL ADJUSTER) eGFR 89 >=60 mL/min/1. 73 m2 Comment: [...] reviewed 2021. Blood 06/21/2024 12:3 3 AM GENERAL ADJUSTER 06/21/2024 1:03 AM GENERAL ADJUSTER us Jefferson Downing MD LAB BLOOD ORDERABLES Final Res ult [facility] Department [place] [address] * Differential, auto (06/21/2024 12:33 AM GENERAL ADJUSTER) Neutrophil abs 5.5 1.5 - 6.5 K/cumm Imm gran abs 0.0 0.0 - 0.1 K/cumm [facility] Lymphocyte abs 0.9 0.8 - 3.3 K/cumm [facility] Monocyte abs 0.8 0.2 - 0.8 K/cumm [facility] Eosinophil abs 0.3 0.0 - 0.5 K/cumm [facility] Basophil abs 0.0 0.0 - 0.1 K/cumm [facility] Neutrophil pct 74.1 % [facility] Comment: Interpretive Data Percent cell count reference ranges are not reported, since discordance with absolute values may lead to misinterpretation of CBC data. Current Interpretive Data was last revised on 2017. Imm gran pct 0.4 % [facility] Comment: Interpretive Data Percent cell count reference ranges are not reported, since discordance with absolute values may lead to misinterpretation of CBC data. Current Interpretive Data was last revised on 2017. Lymphocyte pct 11.5 % [facility] Comment: Interpretive Data Percent cell count reference ranges are not reported, since discordance with absolute values may lead to misinterpretation of CBC data. Current Interpretive Data was last revised on 2017. Monocyte pct 10.3 % [facility] Comment: Interpretive Data Percent cell count reference ranges are not reported, since discordance with absolute values may lead to misinterpretation of CBC data. Current Interpretive Data was last revised on 2017. Eosinophil pct 3.4 % [facility] Comment: Interpretive Data Percent cell count reference ranges are not reported, since discordance with absolute values may lead to misinterpretation of CBC data. Current Interpretive Data was last revised on 2017. Basophil pct 0.3 % [facility] Comment: Interpretive Data Percent cell count reference ranges are not reported, since discordance with absolute values may lead to misinterpretation of CBC data. Current Interpretive Data was last revised on 2017. Blood 06/21/2024 12:3 3 AM GENERAL ADJUSTER 06/21/2024 1:03 AM GENERAL ADJUSTER us Jefferson Downing MD LAB BLOOD ORDERABLES Final Res ult [facility] Department [place] [address] * (ABNORMAL) CBC with auto differential (06/21/2024 12:33 AM GENERAL ADJUSTER) WBC 7.4 3.8 - 9.9 K/cumm Hgb 11.6(L) 13.0 - 17.5 g/dL [facility] Hct 37.4(L) 38.9 - 50.3 % [facility] Plt 245 150 - 400 K/cumm [facility] MPV 10.5 9.1 - 12.3 fL [facility] RBC 4.09(L) 4.30 - 5.80 M/cumm [facility] MCV 91.4 81.3 - 96.4 fL [facility] MCH 28.4 27.1 - 33.3 pg [facility] MCHC 31.0(L) 32.3 - 35.7 g/dL [facility] RDW CV 15.6(H) 11.1 - 14.9 % [facility] RDW SD 51.7(H) 35.7 - 48.1 fL [facility] NRBC abs 0.00 0.00 - 0.01 K/cumm [facility] Blood 06/21/2024 12:3 3 AM GENERAL ADJUSTER 06/21/2024 1:03 AM GENERAL ADJUSTER us Jefferson Downing MD LAB BLOOD ORDERABLES Final Res ult Performing Organization Address [facility] Co de Phone Number [facility] [place] [address] * Magnesium (06/21/2024 12:33 AM GENERAL ADJUSTER) Pathologist [facility] Magnesium 2.1 1.4 - 2.5 mg/dL Blood 06/21/2024 12:3 3 AM GENERAL ADJUSTER 06/21/2024 1:03 AM GENERAL ADJUSTER us Jefferson Downing MD LAB BLOOD ORDERABLES Final Res ult Performing Organization Address [facility] de Phone Number [facility] [place] [address] * Lipase (06/21/2024 12:33 AM GENERAL ADJUSTER) [facility] Lipase 22 10 - 99 Units/L Blood 06/21/2024 12:3 3 AM GENERAL ADJUSTER 06/21/2024 1:03 AM GENERAL ADJUSTER us Jefferson Downing MD LAB BLOOD ORDERABLES Final Res ult Performing Organization Address [facility] de Phone Number [facility] [place] [address] * (ABNORMAL) Comprehensive metabolic panel (06/21/2024 12:33 AM GENERAL ADJUSTER) [facility] Sodium 147(H) 135 - 145 mmol/L Potassium, pl 4.0 3.3 - 4.9 mmol/L [facility] Chloride 109 97 - 110 mmol/L [facility] CO2 31 22 - 32 mmol/L [facility] Anion gap 7 2 - 15 mmol/L [facility] BUN 24 6 - 25 mg/dL [facility] Creatinine 0.89 0.80 - 1.30 mg/dL [facility] Glucose 109 70 - 199 mg/dL [facility] Comment: Interpretive Data Fasting glucose >/= [...] 2022. Calcium 8.8 8.5 - 10.3 mg/dL [facility] Bilirubin, total 0.4 0.1 - 1.2 mg/dL [facility] Protein, pl 6.8 6.5 - 8.5 g/dL [facility] Albumin 3.6 3.5 - 5.0 g/dL [facility] Alk phos 118 40 - 130 Units/L [facility] ALT 12 7 - 55 Units/L [facility] AST 24 10 - 50 Units/L [facility] Blood 06/21/2024 12:3 3 AM GENERAL ADJUSTER 06/21/2024 1:03 AM GENERAL ADJUSTER us Jefferson Downing MD LAB BLOOD ORDERABLES Final Res ult [facility] Department [place] [address] * XR Shoulder Right 2 or More Views (05/17/2024 6:52 PM GENERAL ADJUSTER) Anatomical Region Laterality Modality Upper Extremities, Shoulder Right Comp uted Radiography 05/17/2024 6:55 PM GENERAL ADJUSTER Impressions 05/17/2024 7:04 PM GENERAL ADJUSTER No acute fracture or dislocation. Joint spaces [...] Duc Valentino M.D. Narrative 05/17/2024 7:04 PM GENERAL ADJUSTER EXAMINATION: XR SHOULDER RIGHT 2 OR MORE [...] 01/01/2020 8:32 AM Admit Type: Outpatient Room: [facility] Date of : 1950 Instrument Name: -[id number] Gender: Male Note Status: Finalized Procedure: Colonoscopy Indications: Abdominal pain in the left lower quadrant,constipation, date of last scope unknown, better with [id number] Comorbidities spastic paraplegia Providers: Madi Melendez M.D. [...] 5 years for surveillance given polyp discovery.Continue [facility] 72mcgs. Attending Participation: I personally performed the [...] ago Cortney Viveros RN 02/10/2021 04/23/2024 Insurance [facility] [address] [place] [address] [employer] [facility] [place] [facility] [address] [place] [address] MEDICARE [id number] [place] [id number] MEDICARE [facility] Advance Directives For more information, please contact: [phone] Documents on File Type Date Recorded Patient Net Architect Expl anation ADVANCE DIRECTIVE 02/11/2021 10:49 AM DNR ADVANCE DIRECTIVE 12/27/2019 8:11 AM DNR ADVANCE DIRECTIVE 06/15/2013 12:00 AM 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
--- OUTSIDE RECORDS SUMMARY | 2024-08-11 12:50 | XMS_ITS | Clinical Summary ---
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 Rh O POS 06/01/2024 2:40 AM LABORATORY IMMUNOLOGIST [facility] Blood Bank BLOOD SPECIMEN / Unknown Lab Venipuncture / Unknown 06/01/2024 12:55 AM LABORATORY IMMUNOLOGIST 06/01/2024 1:07 AM LABORATORY IMMUNOLOGIST Deshawn Schultz MD LAB - BLOOD BANK ORD ERABLES [facility] [address] [place] [address], [place] [phone] * BONIFACIO DIRECT (06/01/2024 12:55 AM LABORATORY IMMUNOLOGIST) Direct Bonifacio (FIDEL) NEG 06/01/2024 3:17 AM LABORATORY IMMUNOLOGIST [facility] Blood Bank BLOOD SPECIMEN / Unknown Lab Venipuncture / Unknown 06/01/2024 12:55 AM LABORATORY IMMUNOLOGIST 06/01/2024 1:07 AM LABORATORY IMMUNOLOGIST Deshawn Schultz MD LAB - BLOOD BANK ORD ZION [facility] [address] [place] [phone], [place] [phone] * ANTIBODY IDENTIFICATION (06/01/2024 12:55 AM LABORATORY IMMUNOLOGIST) Antibody 1 POS, Anti-e (little) 06/01/2024 3:57 AM LABORATORY IMMUNOLOGIST [facility] Blood Bank BLOOD SPECIMEN / Unknown Lab Venipuncture / Unknown 06/01/2024 12:55 AM LABORATORY IMMUNOLOGIST 06/01/2024 1:07 AM LABORATORY IMMUNOLOGIST Deshawn Schultz MD LAB - BLOOD BANK ORD ZION Performing Organization Address City/[facility]/ZIP Co de Phone Number [facility] [address] [place] [address], [place] [phone] * PHOSPHORUS BLOOD (06/01/2024 12:55 AM LABORATORY IMMUNOLOGIST) Phosphorus 3.9 2.8 - 5.1 mg/dL 06/01/2024 1:37 AM LABORATORY IMMUNOLOGIST [facility] Blood BLOOD SPECIMEN / Unknown Lab Venipuncture / Unknown 06/01/2024 12:55 AM LABORATORY IMMUNOLOGIST 06/01/2024 1:08 AM LABORATORY IMMUNOLOGIST Deshawn Schultz MD LAB - CHEMISTRY ANTONIO WALKER Performing Organization Address City/[facility]/ZIP Co de Phone Number [address] [address], [place] [phone] * MAGNESIUM BLOOD (06/01/2024 12:55 AM LABORATORY IMMUNOLOGIST) Magnesium 2.1 1.6 - 2.6 mg/dL 06/01/2024 1:37 AM LABORATORY IMMUNOLOGIST [facility] Blood BLOOD SPECIMEN / Unknown Lab Venipuncture / Unknown 06/01/2024 12:55 AM LABORATORY IMMUNOLOGIST 06/01/2024 1:08 AM LABORATORY IMMUNOLOGIST Deshawn Schultz MD LAB - CHEMISTRY ANTONIO WALKER [facility] [address] [place] [address], [facility] [phone] * XR Abdomen Kub Portable (06/01/2024 12:00 AM LABORATORY IMMUNOLOGIST) Anatomical Region Laterality Modality Abdomen Digital Radiogra phy 06/01/2024 2:07 PM LABORATORY IMMUNOLOGIST Impressions 06/01/2024 2:09 PM LABORATORY IMMUNOLOGIST IMPRESSION: *A baclofen pump projects over the [...] 06/01/2024 2:09 PM Narrative 06/01/2024 2:09 PM LABORATORY IMMUNOLOGIST PROCEDURE: XR ABDOMEN KUB PORTABLE DATE/TIME OF [...] 11:27 PM 06/09/2024 8:37 PM Care Teams Emergency Planner Relationship Specialty Start Date End Date Rod Strauss MD [address] [place] [id number] PCP - General Internal Medicine 06/15/24
--- OUTSIDE RECORDS SUMMARY | 2024-08-11 12:50 | XMS_ITS | Encounter Summary ---
Author Organization [facility] Address [address] [place] [address] Care Team Providers Care Infusion Rn Name Role Phone Unavailable Primary Care Provider Unavailabl e Encounter Details Date Type Department Care Team (Latest Contact Info) Description 03/15/2006 Inpatient Historical HIS PATIENT IN A BED Yenny Hauser MD NO ADDRESS ON FILE Devan Agrawal MD [address] [facility] 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 Gender Identity Not on file Sexual Orientation Not on file documented as of this encounter Plan of Treatment Not on file documented as of this encounter Procedures Procedure Name Priority Date/Time Associated Diagnosis Comments CBC WITH DIFFERENTIAL Routine 03/19/2006 4:38 AM CDT CBC WITH DIFFERENTIAL Routine 03/19/2006 4:38 AM CDT MAGNESIUM LEVEL Routine 03/19/2006 4:38 AM CDT COMPREHENSIVE METABOLIC PANEL Routine 03/19/2006 4:38 AM CDT VANCOMYCIN LEVEL TROUGH Routine 03/18/20 06 11:30 AM CDT CBC WITH DIFFERENTIAL Routine 03/18/2006 9:08 AM CDT CBC WITH DIFFERENTIAL Routine 03/18/2006 9:08 AM CDT BASIC METABOLIC PANEL Routine 03/18/2006 9:08 AM CDT CBC WITH DIFFERENTIAL Routine 03/17/2006 4:45 AM CDT CBC WITH DIFFERENTIAL Routine 03/17/2006 4:45 AM CDT C-REACTIVE PROTEIN Routine 03/17/2006 4: 45 AM CDT BASIC METABOLIC PANEL Routine 03/17/2006 4:45 AM CDT LACTIC ACID Routine 03/16/2006 6:30 PM CDT KETONES/BETA HYDROXYBUTYRATE Routine 03/16/2006 6:30 PM CDT COMPREHENSIVE METABOLIC PANEL Routine 03/16/2006 5:50 AM CDT PROTIME-INR Routine 03/15/2006 4:30 PM CDT BASIC METABOLIC PANEL Routine 03/15/2006 4:30 PM CDT CBC WITH DIFFERENTIAL Routine 03/15/2006 5:10 AM CDT CBC WITH DIFFERENTIAL Routine 03/15/2006 5:10 AM CDT C-REACTIVE PROTEIN Routine 03/15/2006 5: 10 AM CDT documented in this encounter Results * CBC WITH DIFFERENTIAL (03/19/2006 4:38 AM CDT) NEUTROPHILS 66 45 - 70 % INTERFAC E SYSTEM LYMPHOCYTES 21 16 - 45 % INTERFAC E SYSTEM MONOCYTES 10 3 - 13 % INTERFACE SYSTEM EOSINOPHILS 3 0 - 7 % INTERFAC E SYSTEM BASOPHILS 1 0 - 2 % INTERFACE SYSTEM NEUTROPHIL ABSOLUTE 5.47 1.90 - 7.00 K/uL INTERFACE SYSTEM LYMPHOCYTE ABSOLUTE 1.70 0.70 - 4.50 K/uL INTERFACE SYSTEM MONOCYTE ABSOLUTE 0.82 0.10 - 1.30 K/uL INTERFACE SYSTEM EOSINOPHIL ABSOLUTE 0.23 0.00 - 0.70 K/uL INTERFACE SYSTEM BASOPHILS ABSOLUTE 0.06 0.00 - 0.20 K/uL INTERFACE SYSTEM 03/19/2006 4:38 AM CDT Yenny Hauser MD HEMATOLOGY ORDERABLES Final R esult Performing Organization Address City/[facility] Phone Number INTERFACE SYSTEM Refer to clinic/hospital department * (ABNORMAL) CBC WITH DIFFERENTIAL (03/19/2006 4:38 AM CDT) WBC 8.3 4.0 - 9.8 K/uL INTERFACE SYSTEM RBC 3.69(L) 4.50 - 5.40 M/uL INTERFACE SYSTEM HEMOGLOBIN 10.9(L) 13.6 - 16.5 g/dL INTERFACE SYSTEM HEMATOCRIT 32.3(L) 40.0 - 48.0 % INTERFACE SYSTEM MCV 87.5 82.0 - 99.0 fL INTERFACE SYSTEM MCH 29.5 27.2 - 32.6 pg INTERFACE SYSTEM MCHC 33.7 31.5 - 35.5 % INTERFACE SYSTEM RDW 13.6 11.5 - 14.5 % INTERFACE SYSTEM RDW-STDEV 43.8 37.1 - 48.7 fL INTERFACE SYSTEM PLATELETS 506(H) 140 - 350 K/uL INTERFACE SYSTEM MPV 9.7 9.3 - 12.4 fL INTERFACE SYSTEM 03/19/2006 4:38 AM CDT Yenny Hauser MD HEMATOLOGY ORDERABLES Final R esult Performing Organization Address City/[facility] Phone Number INTERFACE SYSTEM Refer to clinic/hospital department * MAGNESIUM LEVEL (03/19/2006 4:38 AM CDT) MAGNESIUM 1.7 1.5 - 2.5 mg/dL INTERFACE SYSTEM 03/19/2006 4:38 AM CDT Yenny Hauser MD CHEMISTRY ORDERABLES Final Re sult Performing Organization Address City/[facility] Co de Phone Number INTERFACE SYSTEM Refer to clinic/hospital department * (ABNORMAL) COMPREHENSIVE METABOLIC PANEL (03/19/2006 4:38 AM CDT) GLUCOSE 105(H) 65 - 99 mg/dL INTERFACE SYSTEM CREATININE 0.5 0.5 - 1.3 mg/dL INTERFACE SYSTEM CALCIUM 8.4 8.4 - 10.2 mg/dL INTERFACE SYSTEM ALKALINE PHOSPHATASE 70 40 - 129 U/L INTERFACE SYSTEM AST 15 12 - 38 U/L INTERFACE SYSTEM ALT 15 0 - 41 U/L INTERFACE SYSTEM TOTAL PROTEIN 5.4(L) 6.3 - 8.6 g/dL INTERFACE SYSTEM ALBUMIN 3.3(L) 3.4 - 4.8 g/dL INTERFACE SYSTEM BILIRUBIN TOTAL 0.4 0.2 - 1.0 mg/dL INTERFACE SYSTEM BUN 5(L) 6 - 20 mg/dL INTERFACE SYSTEM SODIUM 136 135 - 145 mmol/L INTERFACE SYSTEM POTASSIUM 2.9(L) 3.5 - 4.9 mmol/L INTERFACE SYSTEM CHLORIDE 99 96 - 108 mmol/L INTERFACE SYSTEM CO2 25 22 - 30 mmol/L INTERFACE SYSTEM 03/19/2006 4:38 AM CDT Yenny Hauser MD CHEMISTRY ORDERABLES Final Re sult Performing Organization Address City/[facility] Co de Phone Number INTERFACE SYSTEM Refer to clinic/hospital department * VANCOMYCIN LEVEL TROUGH (03/18/2006 11:30 AM CDT) Pathologist [facility] VANCOMYCIN, TROUGH 11.5 5.0 - 15.0 ug/mL INTERFACE SYSTEM Comment: Vancomycin Trough Toxic Level= >15.0 ug/mL 03/18/2006 11:3 0 AM CDT Yenny Hauser MD CHEMISTRY ORDERABLES Final Re sult Performing Organization Address [facility] Co de Phone Number INTERFACE SYSTEM Refer to clinic/hospital department * (ABNORMAL) CBC WITH DIFFERENTIAL (03/18/2006 9:08 AM CDT) Pathologist [facility] NEUTROPHILS 76(H) 45 - 70 % INTERFAC E SYSTEM LYMPHOCYTES 12(L) 16 - 45 % INTERFAC E SYSTEM MONOCYTES 10 3 - 13 % INTERFACE SYSTEM EOSINOPHILS 2 0 - 7 % INTERFAC E SYSTEM BASOPHILS 0 0 - 2 % INTERFACE SYSTEM NEUTROPHIL ABSOLUTE 8.75(H) 1.90 - 7.00 K/uL INTERFACE SYSTEM LYMPHOCYTE ABSOLUTE 1.32 0.70 - 4.50 K/uL INTERFACE SYSTEM MONOCYTE ABSOLUTE 1.20 0.10 - 1.30 K/uL INTERFACE SYSTEM EOSINOPHIL ABSOLUTE 0.20 0.00 - 0.70 K/uL INTERFACE SYSTEM BASOPHILS ABSOLUTE 0.04 0.00 - 0.20 K/uL INTERFACE SYSTEM 03/18/2006 9:08 AM CDT Devan Agrawal MD HEMATOLOGY ORDERABLES Final Res ult Performing Organization Address City/[facility] de Phone Number INTERFACE SYSTEM Refer to clinic/hospital department * (ABNORMAL) CBC WITH DIFFERENTIAL (03/18/2006 9:08 AM CDT) WBC 11.5(H) 4.0 - 9.8 K/uL INTERFACE SYSTEM RBC 3.75(L) 4.50 - 5.40 M/uL INTERFACE SYSTEM HEMOGLOBIN 11.0(L) 13.6 - 16.5 g/dL INTERFACE SYSTEM HEMATOCRIT 32.5(L) 40.0 - 48.0 % INTERFACE SYSTEM MCV 86.7 82.0 - 99.0 fL INTERFACE SYSTEM MCH 29.3 27.2 - 32.6 pg INTERFACE SYSTEM MCHC 33.8 31.5 - 35.5 % INTERFACE SYSTEM RDW 13.4 11.5 - 14.5 % INTERFACE SYSTEM RDW-STDEV 42.8 37.1 - 48.7 fL INTERFACE SYSTEM PLATELETS 550(H) 140 - 350 K/uL INTERFACE SYSTEM MPV 9.3 9.3 - 12.4 fL INTERFACE SYSTEM 03/18/2006 9:08 AM CDT Devan Agrawal MD HEMATOLOGY ORDERABLES Final Res ult INTERFACE SYSTEM Refer to clinic/hospital department * (ABNORMAL) BASIC METABOLIC PANEL (03/18/2006 9:08 AM CDT) GLUCOSE 134(H) 65 - 99 mg/dL INTERFACE SYSTEM CREATININE 0.5 0.5 - 1.3 mg/dL INTERFACE SYSTEM CALCIUM 8.8 8.4 - 10.2 mg/dL INTERFACE SYSTEM BUN 5(L) 6 - 20 mg/dL INTERFACE SYSTEM SODIUM 137 135 - 145 mmol/L INTERFACE SYSTEM POTASSIUM 2.9(L) 3.5 - 4.9 mmol/L INTERFACE SYSTEM CHLORIDE 96 96 - 108 mmol/L INTERFACE SYSTEM CO2 24 22 - 30 mmol/L INTERFACE SYSTEM 03/18/2006 9:08 AM CDT us Devan Agrawal MD CHEMISTRY ORDERABLES Final Resu lt Performing Organization Address [facility] Phone Number INTERFACE SYSTEM Refer to clinic/hospital department * (ABNORMAL) CBC WITH DIFFERENTIAL (03/17/2006 4:45 AM CDT) NEUTROPHILS 79(H) 45 - 70 % INTERFAC E SYSTEM LYMPHOCYTES 12(L) 16 - 45 % INTERFAC E SYSTEM MONOCYTES 8 3 - 13 % INTERFACE SYSTEM EOSINOPHILS 1 0 - 7 % INTERFAC E SYSTEM BASOPHILS 0 0 - 2 % INTERFACE SYSTEM NEUTROPHIL ABSOLUTE 9.84(H) 1.90 - 7.00 K/uL INTERFACE SYSTEM LYMPHOCYTE ABSOLUTE 1.44 0.70 - 4.50 K/uL INTERFACE SYSTEM MONOCYTE ABSOLUTE 1.04 0.10 - 1.30 K/uL INTERFACE SYSTEM EOSINOPHIL ABSOLUTE 0.14 0.00 - 0.70 K/uL INTERFACE SYSTEM BASOPHILS ABSOLUTE 0.03 0.00 - 0.20 K/uL INTERFACE SYSTEM 03/17/2006 4:45 AM CDT Historical Provider HEMATOLOGY ORDERABLES Final Result Performing Organization Address [facility] Phone Number INTERFACE SYSTEM Refer to clinic/hospital department * (ABNORMAL) CBC WITH DIFFERENTIAL (03/17/2006 4:45 AM CDT) WBC 12.5(H) 4.0 - 9.8 K/uL INTERFACE SYSTEM RBC 4.08(L) 4.50 - 5.40 M/uL INTERFACE SYSTEM HEMOGLOBIN 12.1(L) 13.6 - 16.5 g/dL INTERFACE SYSTEM HEMATOCRIT 35.6(L) 40.0 - 48.0 % INTERFACE SYSTEM MCV 87.3 82.0 - 99.0 fL INTERFACE SYSTEM MCH 29.7 27.2 - 32.6 pg INTERFACE SYSTEM MCHC 34.0 31.5 - 35.5 % INTERFACE SYSTEM RDW 13.4 11.5 - 14.5 % INTERFACE SYSTEM RDW-STDEV 42.8 37.1 - 48.7 fL INTERFACE SYSTEM PLATELETS 630(H) 140 - 350 K/uL INTERFACE SYSTEM MPV 10.0 9.3 - 12.4 fL INTERFACE SYSTEM 03/17/2006 4:45 AM CDT Historical Provider HEMATOLOGY ORDERABLES Final Result Performing Organization Address [facility] Phone Number INTERFACE SYSTEM Refer to clinic/hospital department * (ABNORMAL) C-REACTIVE PROTEIN (03/17/2006 4:45 AM CDT) CRP 2.4(H) 0.0 - 0.8 mg/dL INTERFACE SYSTEM 03/17/2006 4:45 AM CDT Historical Provider CHEMISTRY ORDERABLES Final R esult Performing Organization Address [facility] Phone Number INTERFACE SYSTEM Refer to clinic/hospital department * (ABNORMAL) BASIC METABOLIC PANEL (03/17/2006 4:45 AM CDT) GLUCOSE 241(H) 65 - 99 mg/dL INTERFACE SYSTEM CREATININE 0.6 0.5 - 1.3 mg/dL INTERFACE SYSTEM CALCIUM 8.9 8.6 - 10.2 mg/dL INTERFACE SYSTEM BUN 8 6 - 20 mg/dL INTERFACE SYSTEM SODIUM 135 135 - 145 mmol/L INTERFACE SYSTEM POTASSIUM 4.0 3.5 - 4.9 mmol/L INTERFACE SYSTEM Comment: Moderate hemolysis present. Can cause significant falsely elevated result. Clinical judgement necessary. Redraw if indicated. CHLORIDE 98 96 - 108 mmol/L INTERFACE SYSTEM CO2 18(L) 22 - 30 mmol/L INTERFACE SYSTEM 03/17/2006 4:45 AM CDT Historical Provider CHEMISTRY ORDERABLES Final R esult Performing Organization Address City/[facility] Phone Number INTERFACE SYSTEM Refer to clinic/hospital department * (ABNORMAL) ACETONE QUALITATIVE (03/16/2006 6:30 PM CDT) ACETONE QUAL 2+ (30 mg/dL)(A) Neg (<10 mg/dL) INTERFACE SYSTEM 03/16/2006 6:30 PM CDT us Historical Provider CHEMISTRY ORDERABLES Final R esult Performing Organization Address [facility] Phone Number INTERFACE SYSTEM Refer to clinic/hospital department * LACTIC ACID (03/16/2006 6:30 PM CDT) LACTIC ACID 1.0 0.5 - 2.2 mmol/L INTERFACE SYSTEM 03/16/2006 6:30 PM CDT us Historical Provider CHEMISTRY ORDERABLES Final R esult Performing Organization Address [facility] Phone Number INTERFACE SYSTEM Refer to clinic/hospital department * (ABNORMAL) COMPREHENSIVE METABOLIC PANEL (03/16/2006 5:50 AM CDT) GLUCOSE 106(H) 65 - 99 mg/dL INTERFACE SYSTEM CREATININE 0.6 0.5 - 1.3 mg/dL INTERFACE SYSTEM CALCIUM 9.1 8.6 - 10.2 mg/dL INTERFACE SYSTEM ALKALINE PHOSPHATASE 88 40 - 129 U/L INTERFACE SYSTEM AST 15 12 - 38 U/L INTERFACE SYSTEM ALT 23 0 - 41 U/L INTERFACE SYSTEM TOTAL PROTEIN 6.6 6.3 - 8.6 g/dL INTERFACE SYSTEM ALBUMIN 4.0 3.4 - 4.8 g/dL INTERFACE SYSTEM BILIRUBIN TOTAL 0.7 0.2 - 1.0 mg/dL INTERFACE SYSTEM BUN 11 6 - 20 mg/dL INTERFACE SYSTEM SODIUM 136 135 - 145 mmol/L INTERFACE SYSTEM POTASSIUM 3.5 3.5 - 4.9 mmol/L INTERFACE SYSTEM CHLORIDE 97 96 - 108 mmol/L INTERFACE SYSTEM CO2 18(L) 22 - 30 mmol/L INTERFACE SYSTEM 03/16/2006 5:50 AM CDT us Devan Agrawal MD CHEMISTRY ORDERABLES Final Resu lt Performing Organization Address [facility] Phone Number INTERFACE SYSTEM Refer to clinic/hospital department * (ABNORMAL) PROTIME-INR (03/15/2006 4:30 PM CDT) PROTIME 22.2(H) 12.7 - 15.1 Seconds INTERFACE SYSTEM INR 1.8(H) 0.9 - 1.1 INTERFACE SYSTEM Comment: INR Therapeutic Range: Adult: 2.0 - 3.0 for pulmonary embolism or prophylaxis against venous thrombosis or systemic embolization. 2.0 - 3.0 for patients with tissue heart valves. 2.5 - 3.5 for patients with mechanical heart valves or post MS. Pediatric (12 years and under): 1.5 - 3.0 Although the target range in children is not well established , INR values of 1.5 - 3.0 are recommended for most patients. Higher values have been used in children with prosthetic cardiac valves and hereditary clotting disorders. (<3 days) therapeutic ranges have not been established. 03/15/2006 4:30 PM CDT Historical Provider HEMATOLOGY ORDERABLES Final Result Performing Organization Address City/[facility] Phone Number INTERFACE SYSTEM Refer to clinic/hospital department * (ABNORMAL) BASIC METABOLIC PANEL (03/15/2006 4:30 PM CDT) GLUCOSE 100(H) 65 - 99 mg/dL INTERFACE SYSTEM CREATININE 0.5 0.5 - 1.3 mg/dL INTERFACE SYSTEM CALCIUM 8.6 8.6 - 10.2 mg/dL INTERFACE SYSTEM BUN 9 6 - 20 mg/dL INTERFACE SYSTEM SODIUM 133(L) 135 - 145 mmol/L INTERFACE SYSTEM POTASSIUM 3.8 3.5 - 4.9 mmol/L INTERFACE SYSTEM CHLORIDE 96 96 - 108 mmol/L INTERFACE SYSTEM CO2 20(L) 22 - 30 mmol/L INTERFACE SYSTEM 03/15/2006 4:30 PM CDT us Historical Provider CHEMISTRY ORDERABLES Final R esult Performing Organization Address City/[facility] de Phone Number INTERFACE SYSTEM Refer to clinic/hospital department * (ABNORMAL) CBC WITH DIFFERENTIAL (03/15/2006 5:10 AM CDT) NEUTROPHILS 71(H) 45 - 70 % INTERFAC E SYSTEM LYMPHOCYTES 17 16 - 45 % INTERFAC E SYSTEM MONOCYTES 9 3 - 13 % INTERFACE SYSTEM EOSINOPHILS 3 0 - 7 % INTERFAC E SYSTEM BASOPHILS 1 0 - 2 % INTERFACE SYSTEM NEUTROPHIL ABSOLUTE 5.93 1.90 - 7.00 K/uL INTERFACE SYSTEM LYMPHOCYTE ABSOLUTE 1.38 0.70 - 4.50 K/uL INTERFACE SYSTEM MONOCYTE ABSOLUTE 0.76 0.10 - 1.30 K/uL INTERFACE SYSTEM EOSINOPHIL ABSOLUTE 0.22 0.00 - 0.70 K/uL INTERFACE SYSTEM BASOPHILS ABSOLUTE 0.04 0.00 - 0.20 K/uL INTERFACE SYSTEM 03/15/2006 5:10 AM CDT Devan Agrawal MD HEMATOLOGY ORDERABLES Final Res ult Performing Organization Address [facility] Phone Number INTERFACE SYSTEM Refer to clinic/hospital department * (ABNORMAL) CBC WITH DIFFERENTIAL (03/15/2006 5:10 AM CDT) WBC 8.3 4.0 - 9.8 K/uL INTERFACE SYSTEM RBC 3.87(L) 4.50 - 5.40 M/uL INTERFACE SYSTEM HEMOGLOBIN 11.3(L) 13.6 - 16.5 g/dL INTERFACE SYSTEM HEMATOCRIT 33.9(L) 40.0 - 48.0 % INTERFACE SYSTEM MCV 87.6 82.0 - 99.0 fL INTERFACE SYSTEM MCH 29.2 27.2 - 32.6 pg INTERFACE SYSTEM MCHC 33.3 31.5 - 35.5 % INTERFACE SYSTEM RDW 12.9 11.5 - 14.5 % INTERFACE SYSTEM RDW-STDEV 41.4 37.1 - 48.7 fL INTERFACE SYSTEM PLATELETS 517(H) 140 - 350 K/uL INTERFACE SYSTEM MPV 9.9 9.3 - 12.4 fL INTERFACE SYSTEM 03/15/2006 5:10 AM CDT Devan Agrawal MD HEMATOLOGY ORDERABLES Final Res ult Performing Organization Address [facility] de Phone Number INTERFACE SYSTEM Refer to clinic/hospital department * (ABNORMAL) C-REACTIVE PROTEIN (03/15/2006 5:10 AM CDT) CRP 3.7(H) 0.0 - 0.8 mg/dL INTERFACE SYSTEM 03/15/2006 5:10 AM CDT us Devan Agrawal MD CHEMISTRY ORDERABLES Final Resu lt INTERFACE SYSTEM Refer to clinic/hospital department documented in this encounter Visit Diagnoses Diagnosis Hypoxemia- Primary documented in this encounter
--- OUTSIDE RECORDS SUMMARY | 2024-08-11 12:50 | XMS_ITS | Encounter Summary ---
Author Organization [facility] Address 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
--- OUTSIDE RECORDS SUMMARY | 2024-08-11 12:51 | XMS_ITS | Encounter Summary ---
Author Organization [facility] Address [address] [place] [address] Care Team Providers Care Roadway Designer Name Role Phone Unavailable Primary Care Provider Unavailabl e Encounter Details Date Type Department Care Team (Late st Contact Info) Description 01/11/2006 Outpatient Historical [facility] Trauma and General Surgery [address] [address] [id number] [place] [address] [place] [address] Social History Tobacco Use Types Packs/Day Years Used Date Smoking Tobacco: Never Assessed Sex and Gender Information Value Date Recorded Sex Assigned at Not on file 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
--- OUTSIDE RECORDS SUMMARY | 2024-08-11 12:51 | XMS_ITS | Encounter Summary ---
Author Organization [facility] Address [address] [place] [address] Care Team Providers Care Edge Grinder Machine Name Role Phone Unavailable Primary Care Provider Unavailabl e Encounter Details Date Type Department Care Team (Late st Contact Info) Description 09/26/2019 Lab Requisition [facility] Laboratory Services [address] [place] [address] [facility], External Provider [address] [place] [address] Unspecified abnormal findings in urine Social History Tobacco Use Types Packs/Day Years Used Date Smoking Tobacco: Never Assessed Sex and Gender Information Value Date Recorded Sex Assigned at Not on file 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 Gender Identity Not on file Sexual Orientation Not on file documented as of this encounter Plan of Treatment Not on file documented as of this encounter Procedures Procedure Name Priority Date/Time Associated Diagnosis Comments CBC WITH DIFFERENTIAL Stat 09/26/2019 3:44 PM CDT Unspecified abnormal findings in urine COMPREHENSIVE METABOLIC PANEL Stat 09/26/2019 3:44 PM CDT Unspecified abnormal findings in urine URINALYSIS W/REFLEX MICROSCOPIC Stat 09/26/2019 3:00 PM CDT Unspecified abnormal findings in urine documented in this encounter Results * (ABNORMAL) COMPREHENSIVE METABOLIC PANEL (09/26/2019 3:44 PM CDT) SODIUM 142 136 - 145 mmol/L 09/26/2019 8:53 PM CDT [facility] POTASSIUM 5.1 3.4 - 5.1 mmol/L 09/26/2019 8:53 PM CDT [facility] CHLORIDE 105 98 - 107 mmol/L 09/26/2019 8:53 PM [facility] CO2 23 22 - 29 mmol/L 09/26/2019 8:53 PM [facility] CALCIUM 8.6 8.6 - 10.4 mg/dL 09/26/2019 8:53 PM [facility] BUN 28(H) 6 - 20 mg/dL 09/26/2019 8:53 PM [facility] CREATININE 1.07 0.67 - 1.17 mg/dL 09/26/2019 8:53 PM [facility] Comment:The GFR result is no t clinically significant on patients <18 or >70 years of age. GLUCOSE 83 74 - 99 mg/dL 09/26/2019 8:53 PM [facility] TOTAL PROTEIN 6.7 6.3 - 8.7 g/dL 09/26/2019 8:53 PM [facility] ALBUMIN 4.2 3.5 - 5.2 g/dL 09/26/2019 8:53 PM [facility] BILIRUBIN TOTAL 0.3 0.2 - 1.3 mg/dL 09/26/2019 8:53 PM [facility] ALKALINE PHOSPHATASE 99 40 - 150 U/L 09/26/2019 8:53 PM [facility] AST 18 0 - 41 U/L 09/26/2019 8:53 PM [facility] ALT 18 0 - 41 U/L 09/26/2019 8:53 PM [facility] GFR >60 mL/min/1.7 3 sq meter 09/26/2019 8:53 PM [facility] Comment: eGFR has not been validated for [...] result. GFR, >60 mL/min/1.7 3 sq meter 09/26/2019 8:53 PM CDT [facility] ANION GAP 14 8 - 16 mmol/L 09/26/2019 8:53 PM CDT [facility] Blood BLOOD SPECIMEN / Unknown Collection / Unknown 09/26/2019 3:44 PM CDT 09/26/2019 8:17 PM CDT us External Provider [facility] CHEMISTRY ORDERABLES Johanne l Result [facility] CLIA# [id number] [place] [address] * (ABNORMAL) CBC WITH DIFFERENTIAL (09/26/2019 3:44 PM CDT) WBC 6.6 4.5 - 10.5 K/uL 09/26/2019 8:26 PM CDT [facility] RBC 3.80(L) 4.50 - 5.40 M/uL 09/26/2019 8:26 PM CDT [facility] HEMOGLOBIN 11.5(L) 13.6 - 16.5 g/dL 09/26/2019 8:26 PM CDT [facility] HEMATOCRIT 34.3(L) 40.0 - 48.0 % 09/26/2019 8:26 PM CDT [facility] MCV 90.2 82.0 - 99.0 fL 09/26/2019 8:26 PM CDT [facility] MCH 30.2 27.8 - 34.5 pg 09/26/2019 8:26 PM CDT [facility] MCHC 33.5 32.5 - 35.5 g/dL 09/26/2019 8:26 PM CDT [facility] RDW 15.8(H) 11.5 - 14.5 % 09/26/2019 8:26 PM CDT [facility] PLATELETS 175 160 - 420 K/uL 09/26/2019 8:26 PM CDT [facility] MPV 10.2 8.7 - 12.7 fL 09/26/2019 8:26 PM CDT [facility] NEUTROPHILS 68 45 - 70 % 09/26/2019 8:26 PM CDT [facility] LYMPHOCYTES 16 16 - 45 % 09/26/2019 8:26 PM CDT [facility] MONOCYTES 10 3 - 13 % 09/26/2019 8:26 PM CDT [facility] EOSINOPHILS 5 0 - 7 % 09/26/2019 8:26 PM CDT [facility] BASOPHILS 1 0 - 2 % 09/26/2019 8:26 PM CDT [facility] NEUTROPHIL ABSOLUTE 4.50 1.90 - 7.00 K/uL 09/26/2019 8:26 PM CDT [facility] LYMPHOCYTE ABSOLUTE 1.10 0.70 - 4.50 K/uL 09/26/2019 8:26 PM CDT [facility] MONOCYTE ABSOLUTE 0.60 0.10 - 1.30 K/uL 09/26/2019 8:26 PM CDT [facility] EOSINOPHIL ABSOLUTE 0.40 0.00 - 0.70 K/uL 09/26/2019 8:26 PM CDT [facility] BASOPHILS ABSOLUTE 0.00 0.00 - 0.20 K/uL 09/26/2019 8:26 PM CDT [facility] Blood BLOOD SPECIMEN / Unknown Collection / Unknown 09/26/2019 3:44 PM CDT 09/26/2019 8:17 PM CDT us External Provider [facility] HEMATOLOGY ORDERABLES Fin al Result [facility] CLIA# [id number] [place] [address] * (ABNORMAL) URINALYSIS WITH REFLEX MICROSCOPIC (09/26/2019 3:00 PM CDT) COLOR UA Yellow Pale to Dark Yellow 09/26/2019 8:52 PM CDT [facility] CLARITY UA Slightly Cloudy(A) Clear 09/26/2019 8:52 PM CDT [facility] SPECIFIC GRAVITY UA 1.019 1.003 - 1.035 09/26/2019 8:52 PM CDT [facility] PH UA 5.0 5.0 - 8.0 09/26/2019 8:52 PM CDT [facility] LEUKOCYTE ESTERASE UA Negative Negative 09/26/2019 8:52 PM CDT [facility] NITRITE UA Negative Negative 09/26/2019 8:52 PM CDT [facility] PROTEIN UA Negative Negative 09/26/2019 8:52 PM CDT [facility] GLUCOSE UA Negative Negative 09/26/2019 8:52 PM CDT [facility] KETONES UA Negative Negative 09/26/2019 8:52 PM CDT [facility] UROBILINOGEN UA Normal <2.0 mg/dL 0 8:52 PM CDT [facility] BILIRUBIN UA Negative Negative 09/26/2019 8:52 PM CDT [facility] BLOOD UA Negative Negative 09/26/2019 8:52 PM CDT [facility] Comment:Ascorbic acid may ca use false negative results for blood. A microscopic review was reflexed to rule out this interference. WBC UA 0-2 0 - 2 /hpf 09/26/2019 8:[facility] RBC UA 0-2 0 - 2 /hpf 09/26/2019 8:52 PM CDT [facility] BACTERIA UA 1+(A) Negative /hpf 09/26/2019 8:52 PM CDT [facility] EPITHELIAL CELLS, URINE 0-5 0 - 5 /hpf 09/26/2019 8:52 PM CDT [facility] HYALINE CAST 0-2 None Seen, 0-2 /lpf 09/26/2019 8:52 PM CDT [facility] Ascorbic Acid UA Positive(A) Negative 020 8:52 PM CDT [facility] Urine URINE SPECIMEN OBTAINED BY CLEAN CATCH PROCEDURE / Unknown Collection / Unknown 09/26/2019 3:00 PM CDT 09/26/2019 8:17 PM CDT us External Provider [facility] URINE ORDERABLES Final Re sult [facility] CLIA# [id number] [place] [address] documented in this encounter Visit Diagnoses Diagnosis Unspecified abnormal findings in urine documented in this encounter
--- OUTSIDE RECORDS SUMMARY | 2024-08-11 12:51 | XMS_ITS | Clinical Summary ---
Author Organization [facility] Address [address] [place] [address] Care Team Providers Care Ecmo Specialist Name Role Phone Unavailable Primary Care Provider Unavailabl e Allergies Active Allergy Reactions Criticality Noted Date Comments Levofloxacin Rash Medium 05/09/2019 Sulfamethoxazole-Trimet hoprim Delirium,Dizziness,N ausea and Vomiting,Other (See Comments) Medium 04/22/2017 confusion confusion Reaction: Muscle Spasm, Tizanidine Shortness of Breath/Wheezing,Rash High 04/06/2006 Reaction: Muscle Spasm, Rash Venlafaxine Dizziness Low 04/21/2023 Medications acetaminophen (TYLENOL) 500 mg tablet Take 500 mg by mouth every 6 hours as needed. 2 tabs 06/14/20 Active ascorbic acid, vitamin C, (VITAMIN C) 500 mg tablet Take 500 mg by mouth daily. Active aspirin (ECOTRIN EC) 81 mg Tablet, Delayed Release (E.C.) Take 81 mg by mouth daily. 06/14/20 Active atorvastatin (LIPITOR) 80 mg tablet Take 80 mg by mouth daily. 06/14/20 Active Bisacodyl 10 mg/30 mL Enema Insert 10 mg by rectum daily. Active DULoxetine (CYMBALTA) 60 mg Capsule, Delayed Release(E.C.) Take 60 mg by mouth daily. 06/14/20 Active amLODIPine (NORVASC) 10 mg tablet Take 10 mg by mouth daily. 06/14/20 Active ferrous sulfate 325 mg (65 mg iron) tablet Take 325 mg by mouth daily. 10/17/19 Active folic acid (FOLVITE) 1 mg tablet Take 1 mg by mouth daily. 10/17/19 Active hydrALAZINE (APRESOLINE) 50 mg tablet Take 50 mg by mouth daily. PRN q8 hours if b/p is 160/80 06/14/20 Active LACTOBACILLUS ACIDOPHILUS ORAL Take 1 Capsule by mouth daily. Active Lidocaine 5 % Cream Apply 1 Application to affected area 1 time daily as needed. Active lisinopriL (PRINIVIL) 20 mg tablet Take 10 mg by mouth 2 times daily. 10/17/19 Active pregabalin (LYRICA) 100 mg Capsule Take 1 Capsule by mouth 2 times daily. 06/14/20 Active mirabegron (MYRBETRIQ) 25 mg Extended Release 24 hour tablet Take 25 mg by mouth daily. 06/14/20 Active naloxone (NARCAN) 4 mg/spray [place], Non-Aerosol Administer 4 mg in each nostril one time only. 10/17/19 Active simethicone 80 mg Tablet, Chewable Take 1 Tablet by mouth every 6 hours as needed. Active zinc oxide 20 % Ointment Apply to affected area every 3 hours as needed. 10/17/19 Active zinc oxide-cod liver oil (DESITIN) 40 % Paste Apply to affected area see administration instructions. 12/17/19 Active docusate sodium (COLACE) 100 mg capsule 100 mg. 06/14/20 Active guaiFENesin (MUCINEX) 600 mg Extended Release Biphasic tablet Take 600 mg by mouth 2 times daily. 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 04/21/2023 Malignant melanoma of skin 04/21/2023 Ingrown nail 04/21/2023 Implantable intrathecal infusion pump present Hyperlipidemia 04/21/2023 Homonymous bilateral field defects, right side 1 History of thromboembolism of vein 04/21/2023 Overview (04/21/2023): Apr 21, 2011 Entered By: ASHLEY SALCIDO Comment: left leg Personal history of traumatic brain injury 04/21 Overview (04/21/2023): Feb 02, 2011 Entered By: ASHLEY SALCIDO Comment: subarachnoid hemmorrhage in 2004 History of recurrent urinary tract infection Debility 04/21/2023 Combined forms of age-related cataract, bilatera l 04/21/2023 Other seborrheic keratosis 04/21/2023 Actinic keratosis 04/21/2023 Erythema intertrigo 04/21/2023 Gastrointestinal hemorrhage 04/01/2023 Suspected COVID-19 virus infection 10/20/2019 Overview (04/21/2023): Last Assessment & Plan: Tested not because he was symptomatic but because of inpatient need and sick contacts at his care facility with known COVID patients. COVID 19 is pending. He does not have any COVID symptoms. 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 Possible UTI [...] to ciprofloxacin 500mg bid x 7 days Last Assessment & Plan: Presents with burning penile pain x3d. Does [...] a total of 7 days of treatment Hydronephrosis 05/10/2019 Constipation 05/09/2019 Overview (04/21/2023): Last Assessment & Plan: Constipation, reported during all prior admissions - Continued senna/docusate 2 tablets BID, psyllium 150 TID, Miralax nightly, and bisacodyl suppository PRN constipation - Also on omeprazole 20 mg daily for GERD; on pantoprazole 40 mg daily here Pyelonephritis 04/12/2019 Overview (04/21/2023): Mr. Amado has incomplete quadriplegia 2/2 Last [...] that has since passed. Urine cx from [facility] on 05/04 also growing pseudomonas, resistant to [...] ultrasound in 2 weeks. Somnolence 06/03/2018 Overview (04/21/2023): Last Assessment & Plan: - 2/2 illness vs medications vs hypoactive delirium - Change Rocephin to Cefepime for any clinical decompensation to cover for pseudomonas - Hold baclofen, Lyrica, and Tramadol - Unable to reach son and obtained collateral from [facility] - CT Head today. - Fall precautions, bed alarm, IS, HOB at 30 - Per PMNR(consult over phone), baclofen pump is not causative Essential hypertension 06/02/2018 Overview (04/21/2023): Last Assessment & Plan: Continue amlo 10 daily, lisinopril 10 nightly. Pt also states he uses hydral prn if SBP >160. Internal hemorrhoids with complication 5 External hemorrhoids 12/14/2014 Osteoarthritis of lumbar spine 04/12/2013 Inflammation of sacroiliac joint 04/12/2013 Chronic pain syndrome 04/12/2013 Overview (04/21/2023): Last Assessment & Plan: Takes Lyrica tid, oxycodone prn. Baclofen pump rx'd by the [facility]. Iron deficiency anemia, unspecified 10/26/2012 Gastric ulcer 10/26/2012 Anemia 10/26/2012 Chronic low back pain 07/29/2012 Overview (04/21/2023): Last Assessment & Plan: Patient has a [...] pain - he has a baclofen pump Quadriplegia, C5-C7 incomplete 06/03/2012 Overview (04/21/2023): Last Assessment & Plan: Uses wheelchair at baseline. Resides at [facility]. Has baclofen pump/neurostimulator in place. C/b neurogenic bladder, SPC in place. 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 Urinary tract infection asso ciated with cystostomy catheter 12/25/2019 04/24/2023 Overview (04/21/2023): Last Assessment & Plan: - Patient last [...] (started in the ED) pending ID recs Acute encephalopathy 12/25/2019 023 Overview (04/21/2023): Last Assessment & Plan: Resolved. Likely from polypharmacy as Ucx is negative, and only other changes have been from medication decreases. 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 Gender Identity Not on file Sexual Orientation Not on file Last Filed Vital Signs Vital Sign Reading Time Taken Comments Blood Pressure 124/74 04/21/2023 11:38 AM CDT Pulse 63 04/21/2023 11:38 AM CDT Temperature - - Respiratory Rate - - Oxygen Saturation 93% 04/21/2023 11:38 AM CDT Inhaled Oxygen Concentration - - Weight 89.4 kg (197 lb) 04/21/2023 11:38 AM CDT Height 190.5 cm (6' 3 ) 04/21/2023 11:38 AM CDT Body Mass Index 24.62 04/21/2023 11:38 AM CDT Plan of Treatment Health Maintenance Due Date Last Done Comments FIT-DNA Q 3 years 1994 FIT/FOBT Q 1 year 1994 Flex Sig/CT Colonography Q 5 years 1994 INFLUENZA VACCINE (#1) 2024 2, 04/16/2021, 04/17/2020, Additional history exists RSV VACCINE (60+ or ) (1 - 1-dose 75+ series) 2024 COLORECTAL SCREENING 12/31/2029 01/01/2020 Colorectal Cancer Screening 12/31/2029 DTAP/TDAP/TD VACCINES (2 - T d or Tdap) 10/17/2031 10/16/2021, 07/01/2016 PNEUMOCOCCAL VACCINE 65+ YEARS Completed 1 07/12/2016, 10/24/2015, 09/16/2014, Additional history exists ZOSTER VACCINE Completed 12/11/2020, 10/10/2020 Insurance MEDICAID [place] [employer]
--- OUTSIDE RECORDS SUMMARY | 2024-08-11 12:51 | XMS_ITS | Encounter Summary ---
Author Organization [facility] Address [address] [place] [address] Care Team Providers Care Bookkeeping Assistant Name Role Phone Unavailable Primary Care Provider Unavailabl e Encounter Details Date Type Department Care Team (Late st Contact Info) Description 01/09/2006 Outpatient Historical [facility] Trauma and General Surgery [address] [phone] [place] [address] [place] [address] Social History Tobacco Use Types Packs/Day Years Used Date Smoking Tobacco: Never Assessed Sex and Gender Information Value Date Recorded Sex Assigned at Not on file 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
--- OUTSIDE RECORDS SUMMARY | 2024-08-11 12:51 | XMS_ITS | Encounter Summary ---
Author Organization [facility] Address [address] [place] [address] Care Team Providers Care Medical Genetics Director Name Role Phone Unavailable Primary Care Provider Unavailabl e Encounter Details Date Type Department Care Team (Late st Contact Info) Description 01/04/2006 Outpatient Historical [facility] Trauma and General Surgery [address] [facility] [facility] [address] [facility] [place] [address] Jayden James MD [address] [facility] [address] [facility] [place] [address] Social History Tobacco Use Types Packs/Day Years Used Date Smoking Tobacco: Never Assessed Sex and Gender Information Value Date Recorded Sex Assigned at Not on file 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
--- OUTSIDE RECORDS SUMMARY | 2024-08-11 12:51 | XMS_ITS | Encounter Summary ---
Author Organization [facility] Address [address] [place] [address] Care Team Providers Care Hand Scudder Name Role Phone Unavailable Primary Care Provider Unavailabl e Encounter Details Date Type Department Care Team (Late st Contact Info) Description 01/11/2006 Outpatient Historical [facility] Trauma and General Surgery [address] [facility] [address] [address] [place] [address] [place] [address] Social History Tobacco Use Types Packs/Day Years Used Date Smoking Tobacco: Never Assessed Sex and Gender Information Value Date Recorded Sex Assigned at Not on file 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
--- OUTSIDE RECORDS SUMMARY | 2024-08-11 12:51 | XMS_ITS | Encounter Summary ---
Author Organization [facility] Address [address] [place] [address] Care Team Providers Care Open Soaper Tender Name Role Phone Unavailable Primary Care Provider Unavailabl e Encounter Details Date Type Department Care Team (Late st Contact Info) Description 01/08/2006 Outpatient Historical [facility] Trauma and General Surgery [address] [facility] [address] [facility] [place] [address] Jayden James MD [address] [facility] [address] [facility] [place] [address] Social History Tobacco Use Types Packs/Day Years Used Date Smoking Tobacco: Never Assessed Sex and Gender Information Value Date Recorded Sex Assigned at Not on file 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
--- OUTSIDE RECORDS SUMMARY | 2024-08-11 12:51 | XMS_ITS | Encounter Summary ---
Author Organization [facility] Address [address] [place] [address] Care Team Providers Care Offset Printing Pressmen Name Role Phone Unavailable Primary Care Provider Unavailabl e Encounter Details Date Type Department Care Team (Late st Contact Info) Description 01/10/2006 Outpatient Historical [facility] Trauma and General Surgery [address] [address] [place] [address] [place] [address] Social History Tobacco Use Types Packs/Day Years Used Date Smoking Tobacco: Never Assessed Sex and Gender Information Value Date Recorded Sex Assigned at Not on file 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
--- OUTSIDE RECORDS SUMMARY | 2024-08-11 12:51 | XMS_ITS | Encounter Summary ---
Author Organization [facility] Address [address] [place] [address] Care Team Providers Care Tobacco Drummer Name Role Phone Unavailable Primary Care Provider Unavailabl e Encounter Details Date Type Department Care Team (Late st Contact Info) Description 01/12/[address] [facility] Trauma and General Surgery [address] [facility] [address] [id number] [place] [address] [place] [address] Social History Tobacco Use Types Packs/Day Years Used Date Smoking Tobacco: Never Assessed Sex and Gender Information Value Date Recorded Sex Assigned at Not on file Legal Sex Male 3:46 AM [employer] Gender Identity Not on file Sexual Orientation Not on file documented as of this encounter Plan of Treatment Not on file documented as of this encounter Visit Diagnoses Not on filedocumented in this encounter
--- OUTSIDE RECORDS SUMMARY | 2024-08-11 12:51 | XMS_ITS | Encounter Summary ---
Author Organization [employer] Address 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 Gender Identity Not on file Sexual Orientation Not on file documented as of this encounter Plan of Treatment Not on file documented as of this encounter Procedures Procedure Name Priority Date/Time Associated Diagnosis Comments CBC WITH DIFFERENTIAL Routine 01/11/2006 4:35 AM CDT CBC WITH DIFFERENTIAL Routine 01/11/2006 4:35 AM CDT BASIC METABOLIC PANEL Routine 01/11/2006 4:35 AM CDT POC GLUCOSE Routine 01/08/2006 9:26 PM CDT POC GLUCOSE Routine 01/08/2006 5:25 PM CDT POC GLUCOSE Routine 01/08/2006 11:50 AM CDT POC GLUCOSE Routine 01/08/2006 5:35 AM CDT POC GLUCOSE Routine 01/07/2006 8:48 PM CDT POC GLUCOSE Routine 01/07/2006 4:51 PM CDT POC GLUCOSE Routine 01/07/2006 11:16 AM CDT POC GLUCOSE Routine 01/07/2006 6:24 AM CDT CBC WITH DIFFERENTIAL Routine 01/07/2006 5:30 AM CDT CBC WITH DIFFERENTIAL Routine 01/07/2006 5:30 AM CDT PHOSPHORUS Routine 01/07/2006 5:30 AM CDT MAGNESIUM LEVEL Routine 01/07/2006 5:30 AM CDT BASIC METABOLIC PANEL Routine 01/07/2006 5:30 AM CDT POC GLUCOSE Routine 01/07/2006 12:49 AM CDT POC GLUCOSE Routine 01/06/2006 5:40 PM CDT POC GLUCOSE Routine 01/06/2006 11:43 AM CDT POC GLUCOSE Routine 01/06/2006 5:48 AM CDT CBC WITH DIFFERENTIAL Routine 01/06/2006 4:30 AM CDT CBC WITH DIFFERENTIAL Routine 01/06/2006 4:30 AM CDT PHOSPHORUS Routine 01/06/2006 4:30 AM CDT MAGNESIUM LEVEL Routine 01/06/2006 4:30 AM CDT BASIC METABOLIC PANEL Routine 01/06/2006 4:30 AM CDT POC GLUCOSE Routine 01/06/2006 1:00 AM CDT POC GLUCOSE Routine 01/05/2006 5:49 PM CDT POC GLUCOSE Routine 01/05/2006 11:57 AM CDT POC GLUCOSE Routine 01/05/2006 5:59 AM CDT PT AND APTT Routine 01/05/2006 4:00 AM CDT CBC WITH DIFFERENTIAL Routine 01/05/2006 4:00 AM CDT CBC WITH DIFFERENTIAL Routine 01/05/2006 4:00 AM CDT PHOSPHORUS Routine 01/05/2006 4:00 AM CDT MAGNESIUM LEVEL Routine 01/05/2006 4:00 AM CDT BASIC METABOLIC PANEL Routine 01/05/2006 4:00 AM CDT POC GLUCOSE Routine 01/04/2006 11:41 PM CDT POC GLUCOSE Routine 01/04/2006 5:43 PM CDT POC GLUCOSE Routine 01/04/2006 11:37 AM CDT POC GLUCOSE Routine 01/04/2006 6:11 AM CDT PT AND APTT Routine 01/04/2006 4:20 AM CDT CBC WITH DIFFERENTIAL Routine 01/04/2006 4:20 AM CDT CBC WITH DIFFERENTIAL Routine 01/04/2006 4:20 AM CDT PHOSPHORUS Routine 01/04/2006 4:20 AM CDT MAGNESIUM LEVEL Routine 01/04/2006 4:20 AM CDT BASIC METABOLIC PANEL Routine 01/04/2006 4:20 AM CDT POC GLUCOSE Routine 01/04/2006 12:25 AM CDT POC GLUCOSE Routine 01/03/2006 5:25 PM CDT POC GLUCOSE Routine 01/03/2006 11:34 AM CDT CBC WITH DIFFERENTIAL Routine 01/03/2006 10:46 AM CDT CBC WITH DIFFERENTIAL Routine 01/03/2006 10:46 AM CDT PTT Routine 01/03/2006 10:46 AM CDT PROTIME-INR Routine 01/03/2006 10:46 AM CDT PHOSPHORUS Routine 01/03/2006 10:46 AM CDT MAGNESIUM LEVEL Routine 01/03/2006 10:46 AM CDT COMPREHENSIVE METABOLIC PANEL Routine 01/03/2006 10:46 AM CDT PT AND APTT Routine 01/03/2006 5:35 AM CDT DRUG SCREEN, URINE Routine 01/03/2006 4: 30 AM CDT POC, BLOOD GASES Routine 01/03/2006 4:16 AM CDT ETHANOL LEVEL Routine 01/03/2006 4:12 AM CDT documented in this encounter Results * (ABNORMAL) CBC WITH DIFFERENTIAL (01/11/2006 4:35 AM CDT) NEUTROPHILS 70 45 - 70 % INTERFAC E SYSTEM LYMPHOCYTES 14(L) 16 - 45 % INTERFAC E SYSTEM MONOCYTES 13 3 - 13 % INTERFACE SYSTEM EOSINOPHILS 3 0 - 7 % INTERFAC E SYSTEM BASOPHILS 0 0 - 2 % INTERFACE SYSTEM NEUTROPHIL ABSOLUTE 6.46 1.90 - 7.00 K/uL INTERFACE SYSTEM LYMPHOCYTE ABSOLUTE 1.30 0.70 - 4.50 K/uL INTERFACE SYSTEM MONOCYTE ABSOLUTE 1.18 0.10 - 1.30 K/uL INTERFACE SYSTEM EOSINOPHIL ABSOLUTE 0.29 0.00 - 0.70 K/uL INTERFACE SYSTEM BASOPHILS ABSOLUTE 0.00 0.00 - 0.20 K/uL INTERFACE SYSTEM 01/11/2006 4:35 AM CDT Dennis Peace MD HEMATOLOGY ORDERABLES Final Res ult Performing Organization Address [facility] Phone Number INTERFACE SYSTEM Refer to clinic/hospital department * (ABNORMAL) CBC WITH DIFFERENTIAL (01/11/2006 4:35 AM CDT) WBC 9.2 4.0 - 9.8 K/uL INTERFACE SYSTEM RBC 4.20(L) 4.50 - 5.40 M/uL INTERFACE SYSTEM HEMOGLOBIN 13.1(L) 13.6 - 16.5 g/dL INTERFACE SYSTEM HEMATOCRIT 37.7(L) 40.0 - 48.0 % INTERFACE SYSTEM MCV 89.8 82.0 - 99.0 fL INTERFACE SYSTEM MCH 31.2 27.2 - 32.6 pg INTERFACE SYSTEM MCHC 34.7 31.5 - 35.5 % INTERFACE SYSTEM RDW 12.7 11.5 - 14.5 % INTERFACE SYSTEM RDW-STDEV 41.5 37.1 - 48.7 fL INTERFACE SYSTEM PLATELETS 210 140 - 350 K/uL INTERFACE SYSTEM MPV 10.5 9.3 - 12.4 fL INTERFACE SYSTEM 01/11/2006 4:35 AM CDT Dennis Peace MD HEMATOLOGY ORDERABLES Final Res ult Performing Organization Address [facility] Phone Number INTERFACE SYSTEM Refer to clinic/hospital department * (ABNORMAL) BASIC METABOLIC PANEL (01/11/2006 4:35 AM CDT) GLUCOSE 115(H) 65 - 99 mg/dL INTERFACE SYSTEM Comment:Note: Effective November 17, 2005, reference range now reflects a fasting st ate. CREATININE 0.7 0.5 - 1.3 mg/dL INTERFACE SYSTEM CALCIUM 7.9(L) 8.6 - 10.2 mg/dL INTERFACE SYSTEM BUN 18 6 - 20 mg/dL INTERFACE SYSTEM SODIUM 131(L) 135 - 145 mmol/L INTERFACE SYSTEM POTASSIUM 4.2 3.5 - 4.9 mmol/L INTERFACE SYSTEM CHLORIDE 99 96 - 108 mmol/L INTERFACE SYSTEM CO2 25 22 - 30 mmol/L INTERFACE SYSTEM 01/11/2006 4:35 AM CDT Dennis Peace MD CHEMISTRY ORDERABLES Final Resu lt Performing Organization Address [facility] Phone Number INTERFACE SYSTEM Refer to clinic/hospital department * (ABNORMAL) POC GLUCOSE (01/08/2006 9:26 PM CDT) GLUCOSE POC 133(H) 65 - 109 mg/dL INTERFACE SYSTEM 01/08/2006 9:26 PM CDT José Fine MD POINT OF CARE TESTING Final Result Performing Organization Address [facility] Phone Number INTERFACE SYSTEM Refer to clinic/hospital department * (ABNORMAL) POC GLUCOSE (01/08/2006 5:25 PM CDT) GLUCOSE POC 125(H) 65 - 109 mg/dL INTERFACE SYSTEM 01/08/2006 5:25 PM CDT José Fine MD POINT OF CARE TESTING Final Result Performing Organization Address [facility] Phone Number INTERFACE SYSTEM Refer to clinic/hospital department * (ABNORMAL) POC GLUCOSE (01/08/2006 11:50 AM CDT) GLUCOSE POC 122(H) 65 - 109 mg/dL INTERFACE SYSTEM 01/08/2006 11:5 0 AM CDT us José Fine MD POINT OF CARE TESTING Final Result Performing Organization Address [facility] Phone Number INTERFACE SYSTEM Refer to clinic/hospital department * (ABNORMAL) POC GLUCOSE (01/08/2006 5:35 AM CDT) GLUCOSE POC 128(H) 65 - 109 mg/dL INTERFACE SYSTEM 01/08/2006 5:35 AM CDT us José Fine MD POINT OF CARE TESTING Final Result Performing Organization Address [facility] Phone Number INTERFACE SYSTEM Refer to clinic/hospital department * (ABNORMAL) POC GLUCOSE (01/07/2006 8:48 PM CDT) GLUCOSE POC 124(H) 65 - 109 mg/dL INTERFACE SYSTEM 01/07/2006 8:48 PM CDT us José Fine MD POINT OF CARE TESTING Final Result Performing Organization Address [facility] Phone Number INTERFACE SYSTEM Refer to clinic/hospital department * (ABNORMAL) POC GLUCOSE (01/07/2006 4:51 PM CDT) GLUCOSE POC 121(H) 65 - 109 mg/dL INTERFACE SYSTEM 01/07/2006 4:51 PM CDT us José Fine MD POINT OF CARE TESTING Final Result Performing Organization Address [facility] Phone Number INTERFACE SYSTEM Refer to clinic/hospital department * (ABNORMAL) POC GLUCOSE (01/07/2006 11:16 AM CDT) GLUCOSE POC 119(H) 65 - 109 mg/dL INTERFACE SYSTEM 01/07/2006 11:1 6 AM CDT us José Fine MD POINT OF CARE TESTING Final Result Performing Organization Address [facility] de Phone Number INTERFACE SYSTEM Refer to clinic/hospital department * (ABNORMAL) POC GLUCOSE (01/07/2006 6:24 AM CDT) GLUCOSE POC 114(H) 65 - 109 mg/dL INTERFACE SYSTEM 01/07/2006 6:24 AM CDT us José Fine MD POINT OF CARE TESTING Final Result Performing Organization Address [facility] de Phone Number INTERFACE SYSTEM Refer to clinic/hospital department * (ABNORMAL) CBC WITH DIFFERENTIAL (01/07/2006 5:30 AM CDT) NEUTROPHILS 79(H) 45 - 70 % INTERFAC E SYSTEM LYMPHOCYTES 10(L) 16 - 45 % INTERFAC E SYSTEM MONOCYTES 11 3 - 13 % INTERFACE SYSTEM EOSINOPHILS 0 0 - 7 % INTERFAC E SYSTEM BASOPHILS 0 0 - 2 % INTERFACE SYSTEM NEUTROPHIL ABSOLUTE 8.86(H) 1.90 - 7.00 K/uL INTERFACE SYSTEM LYMPHOCYTE ABSOLUTE 1.15 0.70 - 4.50 K/uL INTERFACE SYSTEM MONOCYTE ABSOLUTE 1.22 0.10 - 1.30 K/uL INTERFACE SYSTEM EOSINOPHIL ABSOLUTE 0.01 0.00 - 0.70 K/uL INTERFACE SYSTEM BASOPHILS ABSOLUTE 0.00 0.00 - 0.20 K/uL INTERFACE SYSTEM 01/07/2006 5:30 AM CDT Terry Cole MD HEMATOLOGY ORDERABLES Final Resu lt Performing Organization Address [facility] de Phone Number INTERFACE SYSTEM Refer to clinic/hospital department * (ABNORMAL) CBC WITH DIFFERENTIAL (01/07/2006 5:30 AM CDT) WBC 11.2(H) 4.0 - 9.8 K/uL INTERFACE SYSTEM RBC 3.96(L) 4.50 - 5.40 M/uL INTERFACE SYSTEM HEMOGLOBIN 12.1(L) 13.6 - 16.5 g/dL INTERFACE SYSTEM HEMATOCRIT 35.0(L) 40.0 - 48.0 % INTERFACE SYSTEM MCV 88.4 82.0 - 99.0 fL INTERFACE SYSTEM MCH 30.6 27.2 - 32.6 pg INTERFACE SYSTEM MCHC 34.6 31.5 - 35.5 % INTERFACE SYSTEM RDW 12.5 11.5 - 14.5 % INTERFACE SYSTEM RDW-STDEV 39.8 37.1 - 48.7 fL INTERFACE SYSTEM PLATELETS 129(L) 140 - 350 K/uL INTERFACE SYSTEM MPV 10.9 9.3 - 12.4 fL INTERFACE SYSTEM 01/07/2006 5:30 AM CDT Terry Cole MD HEMATOLOGY ORDERABLES Final Resu lt Performing Organization Address [facility] de Phone Number INTERFACE SYSTEM Refer to clinic/hospital department * PHOSPHORUS (01/07/2006 5:30 AM CDT) PHOSPHORUS 3.1 2.5 - 4.5 mg/dL INTERFACE SYSTEM 01/07/2006 5:30 AM CDT Terry Cole MD CHEMISTRY ORDERABLES Final Resul t Performing Organization Address [facility] Phone Number INTERFACE SYSTEM Refer to clinic/hospital department * MAGNESIUM LEVEL (01/07/2006 5:30 AM CDT) MAGNESIUM 2.3 1.5 - 2.5 mg/dL INTERFACE SYSTEM 01/07/2006 5:30 AM CDT Terry Cole MD CHEMISTRY ORDERABLES Final Resul t Performing Organization Address [facility] Phone Number INTERFACE SYSTEM Refer to clinic/hospital department * (ABNORMAL) BASIC METABOLIC PANEL (01/07/2006 5:30 AM CDT) GLUCOSE 115(H) 65 - 99 mg/dL INTERFACE SYSTEM Comment:Note: Effective November 17, 2005, reference range now reflects a fasting st ate. CREATININE 0.8 0.5 - 1.3 mg/dL INTERFACE SYSTEM CALCIUM 7.2(L) 8.6 - 10.2 mg/dL INTERFACE SYSTEM BUN 21(H) 6 - 20 mg/dL INTERFACE SYSTEM SODIUM 134(L) 135 - 145 mmol/L INTERFACE SYSTEM POTASSIUM 3.7 3.5 - 4.9 mmol/L INTERFACE SYSTEM CHLORIDE 100 96 - 108 mmol/L INTERFACE SYSTEM CO2 26 22 - 30 mmol/L INTERFACE SYSTEM 01/07/2006 5:30 AM CDT Terry Cole MD CHEMISTRY ORDERABLES Final Resul t Performing Organization Address [place]/[facility] de Phone Number INTERFACE SYSTEM Refer to clinic/hospital department * (ABNORMAL) POC GLUCOSE (01/07/2006 12:49 AM CDT) GLUCOSE POC 114(H) 65 - 109 mg/dL INTERFACE SYSTEM 01/07/2006 12:4 9 AM CDT us José Fine MD POINT OF CARE TESTING Final Result Performing Organization Address [facility] Co de Phone Number INTERFACE SYSTEM Refer to clinic/hospital department * (ABNORMAL) POC GLUCOSE (01/06/2006 5:40 PM CDT) COMMENT, GLU POC Notified RN INTERFACE SYSTEM GLUCOSE POC 128(H) 65 - 109 mg/dL INTERFACE SYSTEM 01/06/2006 5:40 PM CDT us José Fine MD POINT OF CARE TESTING Final Result Performing Organization Address [facility] Phone Number INTERFACE SYSTEM Refer to clinic/hospital department * (ABNORMAL) POC GLUCOSE (01/06/2006 11:43 AM CDT) COMMENT, GLU POC Notified RN INTERFACE SYSTEM GLUCOSE POC 120(H) 65 - 109 mg/dL INTERFACE SYSTEM 01/06/2006 11:4 3 AM CDT us José Fine MD POINT OF CARE TESTING Final Result Performing Organization Address [facility] de Phone Number INTERFACE SYSTEM Refer to clinic/hospital department * (ABNORMAL) POC GLUCOSE (01/06/2006 5:48 AM CDT) GLUCOSE POC 120(H) 65 - 109 mg/dL INTERFACE SYSTEM 01/06/2006 5:48 AM CDT us José Fine MD POINT OF CARE TESTING Final Result Performing Organization Address [place]/[facility] Co de Phone Number INTERFACE SYSTEM Refer to clinic/hospital department * (ABNORMAL) CBC WITH DIFFERENTIAL (01/06/2006 4:30 AM CDT) NEUTROPHILS 88(H) 45 - 70 % INTERFAC E SYSTEM LYMPHOCYTES 5(L) 16 - 45 % INTERFAC E SYSTEM MONOCYTES 8 3 - 13 % INTERFACE SYSTEM EOSINOPHILS 0 0 - 7 % INTERFAC E SYSTEM BASOPHILS 0 0 - 2 % INTERFACE SYSTEM NEUTROPHIL ABSOLUTE 11.80(H) 1.90 - 7.00 K/uL INTERFACE SYSTEM LYMPHOCYTE ABSOLUTE 0.65(L) 0.70 - 4.50 K/uL INTERFACE SYSTEM MONOCYTE ABSOLUTE 1.01 0.10 - 1.30 K/uL INTERFACE SYSTEM EOSINOPHIL ABSOLUTE 0.00 0.00 - 0.70 K/uL INTERFACE SYSTEM BASOPHILS ABSOLUTE 0.00 0.00 - 0.20 K/uL INTERFACE SYSTEM 01/06/2006 4:30 AM CDT Terry Cole MD HEMATOLOGY ORDERABLES Final Resu lt Performing Organization Address [place]/[facility]/ZIP Co de Phone Number INTERFACE SYSTEM Refer to clinic/hospital department * (ABNORMAL) CBC WITH DIFFERENTIAL (01/06/2006 4:30 AM CDT) WBC 13.5(H) 4.0 - 9.8 K/uL INTERFACE SYSTEM RBC 3.71(L) 4.50 - 5.40 M/uL INTERFACE SYSTEM HEMOGLOBIN 11.3(L) 13.6 - 16.5 g/dL INTERFACE SYSTEM HEMATOCRIT 34.0(L) 40.0 - 48.0 % INTERFACE SYSTEM MCV 91.6 82.0 - 99.0 fL INTERFACE SYSTEM MCH 30.5 27.2 - 32.6 pg INTERFACE SYSTEM MCHC 33.2 31.5 - 35.5 % INTERFACE SYSTEM RDW 13.1 11.5 - 14.5 % INTERFACE SYSTEM RDW-STDEV 44.0 37.1 - 48.7 fL INTERFACE SYSTEM PLATELETS 136(L) 140 - 350 K/uL INTERFACE SYSTEM MPV 11.0 9.3 - 12.4 fL INTERFACE SYSTEM 01/06/2006 4:30 AM CDT Terry Cole MD HEMATOLOGY ORDERABLES Final Resu lt INTERFACE SYSTEM Refer to clinic/hospital department * MAGNESIUM LEVEL (01/06/2006 4:30 AM CDT) MAGNESIUM 2.3 1.5 - 2.5 mg/dL INTERFACE SYSTEM 01/06/2006 4:30 AM CDT Terry Cole MD CHEMISTRY ORDERABLES Final Resul t INTERFACE SYSTEM Refer to clinic/hospital department * PHOSPHORUS (01/06/2006 4:30 AM CDT) PHOSPHORUS 3.2 2.5 - 4.5 mg/dL INTERFACE SYSTEM 01/06/2006 4:30 AM CDT Terry Cole MD CHEMISTRY ORDERABLES Final Resul t Performing Organization Address [facility] de Phone Number INTERFACE SYSTEM Refer to clinic/hospital department * (ABNORMAL) BASIC METABOLIC PANEL (01/06/2006 4:30 AM CDT) GLUCOSE 118(H) 65 - 99 mg/dL INTERFACE SYSTEM Comment:Note: Effective November 17, 2005, reference range now reflects a fasting st ate. CREATININE 0.8 0.5 - 1.3 mg/dL INTERFACE SYSTEM CALCIUM 7.2(L) 8.6 - 10.2 mg/dL INTERFACE SYSTEM BUN 25(H) 6 - 20 mg/dL INTERFACE SYSTEM SODIUM 139 135 - 145 mmol/L INTERFACE SYSTEM POTASSIUM 4.3 3.5 - 4.9 mmol/L INTERFACE SYSTEM CHLORIDE 107 96 - 108 mmol/L INTERFACE SYSTEM CO2 23 22 - 30 mmol/L INTERFACE SYSTEM 01/06/2006 4:30 AM CDT us Terry Cole MD CHEMISTRY ORDERABLES Final Resul t Performing Organization Address [place]/[facility]/ZIP Co de Phone Number INTERFACE SYSTEM Refer to clinic/hospital department * (ABNORMAL) POC GLUCOSE (01/06/2006 1:00 AM CDT) GLUCOSE POC 142(H) 65 - 109 mg/dL INTERFACE SYSTEM 01/06/2006 1:00 AM CDT José Fine MD POINT OF CARE TESTING Final Result Performing Organization Address [facility] Phone Number INTERFACE SYSTEM Refer to clinic/hospital department * (ABNORMAL) POC GLUCOSE (01/05/2006 5:49 PM CDT) GLUCOSE POC 137(H) 65 - 109 mg/dL INTERFACE SYSTEM 01/05/2006 5:49 PM CDT José Fine MD POINT OF CARE TESTING Final Result Performing Organization Address [facility] Phone Number INTERFACE SYSTEM Refer to clinic/hospital department * (ABNORMAL) POC GLUCOSE (01/05/2006 11:57 AM CDT) GLUCOSE POC 133(H) 65 - 109 mg/dL INTERFACE SYSTEM 01/05/2006 11:5 7 AM CDT José Fine MD POINT OF CARE TESTING Final Result Performing Organization Address [facility] Phone Number INTERFACE SYSTEM Refer to clinic/hospital department * (ABNORMAL) POC GLUCOSE (01/05/2006 5:59 AM CDT) GLUCOSE POC 142(H) 65 - 109 mg/dL INTERFACE SYSTEM 01/05/2006 5:59 AM CDT José Fine MD POINT OF CARE TESTING Final Result Performing Organization Address [facility] Phone Number INTERFACE SYSTEM Refer to clinic/hospital department * (ABNORMAL) CBC WITH DIFFERENTIAL (01/05/2006 4:00 AM CDT) NEUTROPHILS 91(H) 45 - 70 % INTERFAC E SYSTEM LYMPHOCYTES 4(L) 16 - 45 % INTERFAC E SYSTEM MONOCYTES 6 3 - 13 % INTERFACE SYSTEM EOSINOPHILS 0 0 - 7 % INTERFAC E SYSTEM BASOPHILS 0 0 - 2 % INTERFACE SYSTEM NEUTROPHIL ABSOLUTE 13.04(H) 1.90 - 7.00 K/uL INTERFACE SYSTEM LYMPHOCYTE ABSOLUTE 0.52(L) 0.70 - 4.50 K/uL INTERFACE SYSTEM MONOCYTE ABSOLUTE 0.82 0.10 - 1.30 K/uL INTERFACE SYSTEM EOSINOPHIL ABSOLUTE 0.00 0.00 - 0.70 K/uL INTERFACE SYSTEM BASOPHILS ABSOLUTE 0.00 0.00 - 0.20 K/uL INTERFACE SYSTEM 01/05/2006 4:00 AM CDT [facility] [email or web address] HEMATOLOGY ORDERABLES Final Result Performing Organization Address [facility] Phone Number INTERFACE SYSTEM Refer to clinic/hospital department * (ABNORMAL) CBC WITH DIFFERENTIAL (01/05/2006 4:00 AM CDT) WBC 14.4(H) 4.0 - 9.8 K/uL INTERFACE SYSTEM RBC 3.70(L) 4.50 - 5.40 M/uL INTERFACE SYSTEM HEMOGLOBIN 11.3(L) 13.6 - 16.5 g/dL INTERFACE SYSTEM HEMATOCRIT 33.5(L) 40.0 - 48.0 % INTERFACE SYSTEM MCV 90.5 82.0 - 99.0 fL INTERFACE SYSTEM MCH 30.5 27.2 - 32.6 pg INTERFACE SYSTEM MCHC 33.7 31.5 - 35.5 % INTERFACE SYSTEM RDW 13.4 11.5 - 14.5 % INTERFACE SYSTEM RDW-STDEV 44.5 37.1 - 48.7 fL INTERFACE SYSTEM PLATELETS 151 140 - 350 K/uL INTERFACE SYSTEM MPV 11.0 9.3 - 12.4 fL INTERFACE SYSTEM 01/05/2006 4:00 AM CDT [employer] HEMATOLOGY ORDERABLES Final Result Performing Organization Address [facility] Phone Number INTERFACE SYSTEM Refer to clinic/hospital department * (ABNORMAL) PT AND APTT (01/05/2006 4:00 AM CDT) PROTIME 16.3(H) 12.7 - 15.1 Seconds INTERFACE SYSTEM INR 1.2(H) 0.9 - 1.1 INTERFACE SYSTEM Comment: INR Therapeutic Range: Adult: 2.0 - 3.0 for pulmonary embolism or prophylaxis against venous thrombosis or systemic embolization. 2.0 - 3.0 for patients with tissue heart valves. 2.5 - 3.5 for patients with mechanical heart valves or post PR. Pediatric (12 years and under): 1.5 - 3.0 Although the target range in children is not well established , INR values of 1.5 - 3.0 are recommended for most patients. Higher values have been used in children with prosthetic cardiac valves and hereditary clotting disorders. (<3 days) therapeutic ranges have not been established. PTT 29.0 24.4 - 36.4 Seconds INTERFACE SYSTEM Comment: PTT Therapeutic Range: Heparin Level PTT (seconds) <0.10 units/mL <53 0.10 - 0.30 units/mL 53 - 67 0.30 - 0.70 units/mL* 67 - 95* 0.70 - 1.00 units/mL 95 - 116 *corresponds to therapeutic range for unfractionated heparin 01/05/2006 4:00 AM CDT [employer] HEMATOLOGY ORDERABLES Final Result Performing Organization Address [facility] Phone Number INTERFACE SYSTEM Refer to clinic/hospital department * PHOSPHORUS (01/05/2006 4:00 AM CDT) PHOSPHORUS 2.9 2.5 - 4.5 mg/dL INTERFACE SYSTEM 01/05/2006 4:00 AM CDT Luis Eduardo [employer] CHEMISTRY ORDERABLES Final R esult Performing Organization Address [facility] Phone Number INTERFACE SYSTEM Refer to clinic/hospital department * MAGNESIUM LEVEL (01/05/2006 4:00 AM CDT) MAGNESIUM 2.2 1.5 - 2.5 mg/dL INTERFACE SYSTEM 01/05/2006 4:00 AM CDT [email or web address] CHEMISTRY ORDERABLES Final R esult Performing Organization Address [facility] Phone Number INTERFACE SYSTEM Refer to clinic/hospital department * (ABNORMAL) BASIC METABOLIC PANEL (01/05/2006 4:00 AM CDT) GLUCOSE 154(H) 65 - 99 mg/dL INTERFACE SYSTEM Comment:Note: Effective November 17, 2005, reference range now reflects a fasting st ate. CREATININE 0.9 0.5 - 1.3 mg/dL INTERFACE SYSTEM CALCIUM 7.7(L) 8.6 - 10.2 mg/dL INTERFACE SYSTEM BUN 24(H) 6 - 20 mg/dL INTERFACE SYSTEM SODIUM 139 135 - 145 mmol/L INTERFACE SYSTEM POTASSIUM 4.2 3.5 - 4.9 mmol/L INTERFACE SYSTEM CHLORIDE 106 96 - 108 mmol/L INTERFACE SYSTEM CO2 23 22 - 30 mmol/L INTERFACE SYSTEM 01/05/2006 4:00 AM CDT Luis Eduardo Bey CHEMISTRY ORDERABLES Final R esult Performing Organization Address [facility] Phone Number INTERFACE SYSTEM Refer to clinic/hospital department * (ABNORMAL) POC GLUCOSE (01/04/2006 11:41 PM CDT) GLUCOSE POC 140(H) 65 - 109 mg/dL INTERFACE SYSTEM 01/04/2006 11:4 1 PM CDT us José Fine MD POINT OF CARE TESTING Final Result Performing Organization Address [facility] Phone Number INTERFACE SYSTEM Refer to clinic/hospital department * (ABNORMAL) POC GLUCOSE (01/04/2006 5:43 PM CDT) GLUCOSE POC 156(H) 65 - 109 mg/dL INTERFACE SYSTEM 01/04/2006 5:43 PM CDT us José Fine MD POINT OF CARE TESTING Final Result Performing Organization Address [facility] Phone Number INTERFACE SYSTEM Refer to clinic/hospital department * (ABNORMAL) POC GLUCOSE (01/04/2006 11:37 AM CDT) GLUCOSE POC 175(H) 65 - 109 mg/dL INTERFACE SYSTEM 01/04/2006 11:3 7 AM CDT us José Fine MD POINT OF CARE TESTING Final Result Performing Organization Address [facility] Phone Number INTERFACE SYSTEM Refer to clinic/hospital department * (ABNORMAL) POC GLUCOSE (01/04/2006 6:11 AM CDT) GLUCOSE POC 183(H) 65 - 109 mg/dL INTERFACE SYSTEM 01/04/2006 6:11 AM CDT José Fine MD POINT OF CARE TESTING Final Result Performing Organization Address [facility] Phone Number INTERFACE SYSTEM Refer to clinic/hospital department * (ABNORMAL) CBC WITH DIFFERENTIAL (01/04/2006 4:20 AM CDT) NEUTROPHILS 92(H) 45 - 70 % INTERFAC E SYSTEM LYMPHOCYTES 5(L) 16 - 45 % INTERFAC E SYSTEM MONOCYTES 4 3 - 13 % INTERFACE SYSTEM EOSINOPHILS 0 0 - 7 % INTERFAC E SYSTEM BASOPHILS 0 0 - 2 % INTERFACE SYSTEM NEUTROPHIL ABSOLUTE 12.40(H) 1.90 - 7.00 K/uL INTERFACE SYSTEM LYMPHOCYTE ABSOLUTE 0.60(L) 0.70 - 4.50 K/uL INTERFACE SYSTEM MONOCYTE ABSOLUTE 0.48 0.10 - 1.30 K/uL INTERFACE SYSTEM EOSINOPHIL ABSOLUTE 0.00 0.00 - 0.70 K/uL INTERFACE SYSTEM BASOPHILS ABSOLUTE 0.00 0.00 - 0.20 K/uL INTERFACE SYSTEM 01/04/2006 4:20 AM CDT Rayray Wilcox MD HEMATOLOGY ORDERABLES F inal Result Performing Organization Address [facility] Phone Number INTERFACE SYSTEM Refer to clinic/hospital department * (ABNORMAL) CBC WITH DIFFERENTIAL (01/04/2006 4:20 AM CDT) WBC 13.5(H) 4.0 - 9.8 K/uL INTERFACE SYSTEM RBC 3.87(L) 4.50 - 5.40 M/uL INTERFACE SYSTEM HEMOGLOBIN 12.0(L) 13.6 - 16.5 g/dL INTERFACE SYSTEM HEMATOCRIT 35.1(L) 40.0 - 48.0 % INTERFACE SYSTEM MCV 90.7 82.0 - 99.0 fL INTERFACE SYSTEM MCH 31.0 27.2 - 32.6 pg INTERFACE SYSTEM MCHC 34.2 31.5 - 35.5 % INTERFACE SYSTEM RDW 13.3 11.5 - 14.5 % INTERFACE SYSTEM RDW-STDEV 44.1 37.1 - 48.7 fL INTERFACE SYSTEM PLATELETS 171 140 - 350 K/uL INTERFACE SYSTEM MPV 10.4 9.3 - 12.4 fL INTERFACE SYSTEM 01/04/2006 4:20 AM CDT us Rayray Wilcox MD HEMATOLOGY ORDERABLES F inal Result INTERFACE SYSTEM Refer to clinic/hospital department * (ABNORMAL) PT AND APTT (01/04/2006 4:20 AM CDT) PROTIME 16.5(H) 12.7 - 15.1 Seconds INTERFACE SYSTEM INR 1.2(H) 0.9 - 1.1 INTERFACE SYSTEM Comment: INR Therapeutic Range: Adult: 2.0 - 3.0 for pulmonary embolism or prophylaxis against venous thrombosis or systemic embolization. 2.0 - 3.0 for patients with tissue heart valves. 2.5 - 3.5 for patients with mechanical heart valves or post PR. Pediatric (12 years and under): 1.5 - 3.0 Although the target range in children is not well established , INR values of 1.5 - 3.0 are recommended for most patients. Higher values have been used in children with prosthetic cardiac valves and hereditary clotting disorders. (<3 days) therapeutic ranges have not been established. PTT 32.4 24.4 - 36.4 Seconds INTERFACE SYSTEM Comment: PTT Therapeutic Range: Heparin Level PTT (seconds) <0.10 units/mL <53 0.10 - 0.30 units/mL 53 - 67 0.30 - 0.70 units/mL* 67 - 95* 0.70 - 1.00 units/mL 95 - 116 *corresponds to therapeutic range for unfractionated heparin 01/04/2006 4:20 AM CDT Rayray Wilcox MD HEMATOLOGY ORDERABLES F inal Result Performing Organization Address [facility] Phone Number INTERFACE SYSTEM Refer to clinic/hospital department * PHOSPHORUS (01/04/2006 4:20 AM CDT) PHOSPHORUS 2.5 2.5 - 4.5 mg/dL INTERFACE SYSTEM 01/04/2006 4:20 AM CDT us Rayray Wilcox MD CHEMISTRY ORDERABLES Fi nal Result Performing Organization Address [facility] Phone Number INTERFACE SYSTEM Refer to clinic/hospital department * MAGNESIUM LEVEL (01/04/2006 4:20 AM CDT) MAGNESIUM 2.0 1.5 - 2.5 mg/dL INTERFACE SYSTEM 01/04/2006 4:20 AM CDT Rayray Wilcox MD CHEMISTRY ORDERABLES Fi nal Result Performing Organization Address [facility] Phone Number INTERFACE SYSTEM Refer to clinic/hospital department * (ABNORMAL) BASIC METABOLIC PANEL (01/04/2006 4:20 AM CDT) GLUCOSE 180(H) 65 - 99 mg/dL INTERFACE SYSTEM Comment:Note: Effective November 17, 2005, reference range now reflects a fasting st ate. CREATININE 1.0 0.5 - 1.3 mg/dL INTERFACE SYSTEM CALCIUM 7.3(L) 8.6 - 10.2 mg/dL INTERFACE SYSTEM BUN 26(H) 6 - 20 mg/dL INTERFACE SYSTEM SODIUM 140 135 - 145 mmol/L INTERFACE SYSTEM POTASSIUM 4.1 3.5 - 4.9 mmol/L INTERFACE SYSTEM CHLORIDE 108 96 - 108 mmol/L INTERFACE SYSTEM CO2 23 22 - 30 mmol/L INTERFACE SYSTEM 01/04/2006 4:20 AM CDT Madi Oritz MD CHEMISTRY ORDERABLES Final Re sult Performing Organization Address [facility]/ZIP Co de Phone Number INTERFACE SYSTEM Refer to clinic/hospital department * (ABNORMAL) POC GLUCOSE (01/04/2006 12:25 AM CDT) GLUCOSE POC 188(H) 65 - 109 mg/dL INTERFACE SYSTEM 01/04/2006 12:2 5 AM CDT José Fine MD POINT OF CARE TESTING Final Result Performing Organization Address [facility] de Phone Number INTERFACE SYSTEM Refer to clinic/hospital department * (ABNORMAL) POC GLUCOSE (01/03/2006 5:25 PM CDT) GLUCOSE POC 177(H) 65 - 109 mg/dL INTERFACE SYSTEM 01/03/2006 5:25 PM CDT José Fine MD POINT OF CARE TESTING Final Result Performing Organization Address [facility] de Phone Number INTERFACE SYSTEM Refer to clinic/hospital department * (ABNORMAL) POC GLUCOSE (01/03/2006 11:34 AM CDT) GLUCOSE POC 148(H) 65 - 109 mg/dL INTERFACE SYSTEM 01/03/2006 11:3 4 AM CDT José Fine MD POINT OF CARE TESTING Final Result Performing Organization Address [facility] de Phone Number INTERFACE SYSTEM Refer to clinic/hospital department * (ABNORMAL) CBC WITH DIFFERENTIAL (01/03/2006 10:46 AM CDT) NEUTROPHILS 93(H) 45 - 70 % INTERFAC E SYSTEM LYMPHOCYTES 4(L) 16 - 45 % INTERFAC E SYSTEM MONOCYTES 3 3 - 13 % INTERFACE SYSTEM EOSINOPHILS 0 0 - 7 % INTERFAC E SYSTEM BASOPHILS 0 0 - 2 % INTERFACE SYSTEM NEUTROPHIL ABSOLUTE 12.16(H) 1.90 - 7.00 K/uL INTERFACE SYSTEM LYMPHOCYTE ABSOLUTE 0.49(L) 0.70 - 4.50 K/uL INTERFACE SYSTEM MONOCYTE ABSOLUTE 0.40 0.10 - 1.30 K/uL INTERFACE SYSTEM EOSINOPHIL ABSOLUTE 0.01 0.00 - 0.70 K/uL INTERFACE SYSTEM BASOPHILS ABSOLUTE 0.01 0.00 - 0.20 K/uL INTERFACE SYSTEM 01/03/2006 10:4 6 AM CDT Rayray Wilcox MD HEMATOLOGY ORDERABLES F inal Result Performing Organization Address [facility] Phone Number INTERFACE SYSTEM Refer to clinic/hospital department * (ABNORMAL) CBC WITH DIFFERENTIAL (01/03/2006 10:46 AM CDT) WBC 13.1(H) 4.0 - 9.8 K/uL INTERFACE SYSTEM RBC 4.22(L) 4.50 - 5.40 M/uL INTERFACE SYSTEM HEMOGLOBIN 12.9(L) 13.6 - 16.5 g/dL INTERFACE SYSTEM HEMATOCRIT 38.0(L) 40.0 - 48.0 % INTERFACE SYSTEM MCV 90.0 82.0 - 99.0 fL INTERFACE SYSTEM MCH 30.6 27.2 - 32.6 pg INTERFACE SYSTEM MCHC 33.9 31.5 - 35.5 % INTERFACE SYSTEM RDW 13.1 11.5 - 14.5 % INTERFACE SYSTEM RDW-STDEV 42.9 37.1 - 48.7 fL INTERFACE SYSTEM PLATELETS 191 140 - 350 K/uL INTERFACE SYSTEM MPV 10.0 9.3 - 12.4 fL INTERFACE SYSTEM 01/03/2006 10:4 6 AM CDT Rayray Wilcox MD HEMATOLOGY ORDERABLES F inal Result Performing Organization Address [facility] Phone Number INTERFACE SYSTEM Refer to clinic/hospital department * PTT (01/03/2006 10:46 AM CDT) PTT 24.8 24.4 - 36.4 Seconds INTERFACE SYSTEM Comment: PTT Therapeutic Range: Heparin Level PTT (seconds) <0.10 units/mL <53 0.10 - 0.30 units/mL 53 - 67 0.30 - 0.70 units/mL* 67 - 95* 0.70 - 1.00 units/mL 95 - 116 *corresponds to therapeutic range for unfractionated heparin 01/03/2006 10:4 6 AM CDT Rayray Wilcox MD HEMATOLOGY ORDERABLES F inal Result Performing Organization Address [facility] Phone Number INTERFACE SYSTEM Refer to clinic/hospital department * PROTIME-INR (01/03/2006 10:46 AM CDT) PROTIME 15.1 12.7 - 15.1 Seconds INTERFACE SYSTEM INR 1.1 0.9 - 1.1 INTERFACE SYSTEM Comment: INR Therapeutic Range: Adult: 2.0 - 3.0 for pulmonary embolism or prophylaxis against venous thrombosis or systemic embolization. 2.0 - 3.0 for patients with tissue heart valves. 2.5 - 3.5 for patients with mechanical heart valves or post PR. Pediatric (12 years and under): 1.5 - 3.0 Although the target range in children is not well established , INR values of 1.5 - 3.0 are recommended for most patients. Higher values have been used in children with prosthetic cardiac valves and hereditary clotting disorders. (<3 days) therapeutic ranges have not been established. 01/03/2006 10:4 6 AM CDT Rayray Wilcox MD HEMATOLOGY ORDERABLES F inal Result Performing Organization Address [facility] Number INTERFACE SYSTEM Refer to clinic/hospital department * PHOSPHORUS (01/03/2006 10:46 AM CDT) PHOSPHORUS 3.3 2.5 - 4.5 mg/dL INTERFACE SYSTEM 01/03/2006 10:4 6 AM CDT Rayray Wilcox MD CHEMISTRY ORDERABLES Fi nal Result Performing Organization Address [facility] Phone Number INTERFACE SYSTEM Refer to clinic/hospital department * MAGNESIUM LEVEL (01/03/2006 10:46 AM CDT) MAGNESIUM 1.8 1.5 - 2.5 mg/dL INTERFACE SYSTEM 01/03/2006 10:4 6 AM CDT Rayray Wilcox MD CHEMISTRY ORDERABLES Fi nal Result Performing Organization Address [facility] Phone Number INTERFACE SYSTEM Refer to clinic/hospital department * (ABNORMAL) COMPREHENSIVE METABOLIC PANEL (01/03/2006 10:46 AM CDT) GLUCOSE 148(H) 65 - 99 mg/dL INTERFACE SYSTEM Comment:Note: Effective November 17, 2005, reference range now reflects a fasting st ate. CREATININE 1.1 0.5 - 1.3 mg/dL INTERFACE SYSTEM CALCIUM 7.7(L) 8.6 - 10.2 mg/dL INTERFACE SYSTEM ALKALINE PHOSPHATASE 42 40 - 129 U/L INTERFACE SYSTEM AST 101(H) 12 - 38 U/L INTERFACE SYSTEM ALT 80(H) 0 - 41 U/L INTERFACE SYSTEM TOTAL PROTEIN 5.9(L) 6.3 - 8.6 g/dL INTERFACE SYSTEM ALBUMIN 4.0 3.4 - 4.8 g/dL INTERFACE SYSTEM BILIRUBIN TOTAL 0.7 0.2 - 1.0 mg/dL INTERFACE SYSTEM BUN 26(H) 6 - 20 mg/dL INTERFACE SYSTEM SODIUM 141 135 - 145 mmol/L INTERFACE SYSTEM POTASSIUM 4.0 3.5 - 4.9 mmol/L INTERFACE SYSTEM CHLORIDE 106 96 - 108 mmol/L INTERFACE SYSTEM CO2 20(L) 22 - 30 mmol/L INTERFACE SYSTEM 01/03/2006 10:4 6 AM CDT Rayray Wilcox MD CHEMISTRY ORDERABLES nal Result Performing Organization Address [facility] Phone Number INTERFACE SYSTEM Refer to clinic/hospital department * (ABNORMAL) PT AND APTT (01/03/2006 5:35 AM CDT) PROTIME 15.6(H) 12.7 - 15.1 Seconds INTERFACE SYSTEM INR 1.1 0.9 - 1.1 INTERFACE SYSTEM Comment: INR Therapeutic Range: Adult: 2.0 - 3.0 for pulmonary embolism or prophylaxis against venous thrombosis or systemic embolization. 2.0 - 3.0 for patients with tissue heart valves. 2.5 - 3.5 for patients with mechanical heart valves or post PR. Pediatric (12 years and under): 1.5 - 3.0 Although the target range in children is not well established , INR values of 1.5 - 3.0 are recommended for most patients. Higher values have been used in children with prosthetic cardiac valves and hereditary clotting disorders. (<3 days) therapeutic ranges have not been established. PTT 26.7 24.4 - 36.4 Seconds INTERFACE SYSTEM Comment: PTT Therapeutic Range: Heparin Level PTT (seconds) <0.10 units/mL <53 0.10 - 0.30 units/mL 53 - 67 0.30 - 0.70 units/mL* 67 - 95* 0.70 - 1.00 units/mL 95 - 116 *corresponds to therapeutic range for unfractionated heparin 01/03/2006 5:35 AM CDT us Authorized P Er HEMATOLOGY ORDERABLES Final Resu lt INTERFACE SYSTEM Refer to clinic/hospital department * DRUG SCREEN, URINE (01/03/2006 4:30 AM CDT) COMMENT, TOXICOLOGY See Separate Comment INTERFACE SYSTEM Comment: Urine sample was not handled as a legal specimen and was received without a chain of custody. The result should be used only for medical purposes. False positive and erroneous results can occur due to cross-reacting sub stances and other factors. Depending on the clinical context, confirmation of all presumptive positive results by a more specific alternate method is recommended. A negative result indicates the analyte, if present, is below the screening threshold. Drug Ref. Range Screening Threshold Amphetamines Negative 1000 ng/mL Barbituates Negative 200 ng/mL Benzodiazepines Negative 300 ng/mL Cannabinoids Negative 50 ng/mL Cocaine Metabolites Negative 300 ng/mL Opiates Negative 300 ng/mL Phencycldine Negative 25 ng/mL The cut-off threshold, known cross-reactive compounds, drugs,and specificity information for each of the urine drugs of abuse are available on the [facility] Intranet at: [email or web address] Select: Drugs of Abuse ? [facility] To inquire about any potential cross-reactivity of a specific drug not listed at this site, please contact the Chemistry Lab at . AMPHETAMINE QUAL, URINE Negative INTERFACE SYSTEM BARBITURATE QUAL, URINE Negative INTERFACE SYSTEM BENZODIAZEPINE QUAL, URINE Negative INTERFACE SYSTEM CANNABINOIDS QUAL, URINE Negative INTERFACE SYSTEM COCAINE QUAL URINE Negative I NTERFACE SYSTEM OPIATE QUAL, URINE Negative I NTERFACE SYSTEM PCP QUAL, URINE Negative INTE RFACE SYSTEM 01/03/2006 4:30 AM CDT Pritesh Walker MD URINE ORDERABLES Final Result Performing Organization Address City/[facility]/ZIP Co de Phone Number INTERFACE SYSTEM Refer to clinic/hospital department * (ABNORMAL) POC RT, BLOOD GASES (01/03/2006 4:16 AM CDT) PH MVBG 7.35 7.32 - 7.43 INTERFACE SYSTEM PCO2 VENOUS 41 38 - 50 mm Hg INTERFACE SYSTEM PO2 MVBG 40 25 - 40 mm Hg INTERFACE SYSTEM O2 SAT EST MVBG POC 72(H) 40 - 70 % INTERFACE SYSTEM PATIENT'S TEMPERATURE 37.0 Degree C INTERFACE SYSTEM BASE EXCESS VENOUS -2.9(L) -2.0 - 3.0 mmol/L INTERFACE SYSTEM HCO3 MIXED VENOUS 23 22 - 29 mmol/L INTERFACE SYSTEM SODIUM POC 140 135 - 145 mmol/L INTERFACE SYSTEM POTASSIUM POC 3.6 3.5 - 4.9 mmol/L INTERFACE SYSTEM CALICUM IONIZED, WHOLE BLOOD 3.93(L) 4.76 - 5.16 mg/dL INTERFACE SYSTEM HEMATOCRIT POC 43.0 40.0 - 48.0 % INTERFACE SYSTEM FIO2 21 INTERFACE SYSTEM OXYGEN MODE RA INTERFAC E SYSTEM COMMENT, GASES POC AND RN NOTIFIED INTERFACE SYSTEM 01/03/2006 4:16 AM CDT José Fine MD CHEMISTRY ORDERABLES Final R esult INTERFACE SYSTEM Refer to clinic/hospital department * ETHANOL LEVEL (01/03/2006 4:12 AM CDT) ETHANOL 191 mg/dL INTERFACE SYSTEM Comment: Reference Range: Less than 10 mg/dL 01/03/2006 4:12 AM CDT Pritesh Walker MD CHEMISTRY ORDERABLES Final Resul t INTERFACE SYSTEM Refer to clinic/hospital department documented in this encounter Visit Diagnoses Diagnosis Closed fracture of C5-C7 level with complete lesion of cord- Primary documented in this encounter
[2024-08-11 12:53] LABS: Add Urine Microscopic? YES; Appearance Urine Turbid (Clear); Bacteria Urine 4+ /hpf; Bilirubin Urine Negative (Negative); Blood Urine 2+ (Negative); Color Urine Yellow (Yellow); Glucose Urine UA Negative (Negative); Ketones Urine Trace mg/dL (Negative); Leukocyte Esterase Ur 2+ LEU/UL (Negative); Need Manual Microscopic Reviewed; Nitrate Urine Negative (Negative); Non Pathogenic Casts >20; Protein Urine 2+ mg/dL (Negative); RBC Urine 51-100 /hpf (0-2); Specific Grav Ur 1.023 (1.001-1.035); Squamous Epithelial Cell Urine Many /hpf (Few); WBC Urine >100 /hpf (0-3)
[2024-08-11 12:54] LABS: Amorphous Sediment Urine Heavy
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
[2024-08-11 14:01] VITALS: BP 168/75; PULSE 60; RESP 16; TEMP 36.6; O2SAT 98
[2024-08-11] MEDS: AMOXICILLIN/CLAVULANATE K 875-125 MG TAB 1 TABLET PO (14:28)
--- NOTE | 2024-08-11 14:38 | PC.NURSE ---
1300: Supra catheter changed by Dr. Meredith. #22 mercado brought from home by pt inserted without difficulty. Pt tolerated well.
[2024-08-11 14:41] VITALS: BP 168/75; PULSE 63; RESP 18; O2SAT 98
== END 2024-08-11 14:41 | disposition home or self-care (01) ==
PROVIDERS: Emergency Provider Emergency Medicine; PCP Internal Medicine
DX: T83.098A Other mechanical complication of other urinary catheter, initial encounter (principal); R82.90 Unspecified abnormal findings in urine; Z86.718 Personal history of other venous thrombosis and embolism; K21.9 Gastro-esophageal reflux disease without esophagitis; I10 Essential (primary) hypertension; I69.312 Visuospatial deficit and spatial neglect following cerebral infarction; F32.A Depression, unspecified; G82.54 Quadriplegia, C5-C7 incomplete; Z87.891 Personal history of nicotine dependence
CPT/HCPCS: 81001; 87077; 87086; 87186; 99283; A9270

== ENCOUNTER 2024-10-07 10:44 | Inpatient (IN) | payer MEDICARE, OTHER, SELFPAY ==
[2024-10-07] VITALS (17 sets, daily range): BP systolic 127–178; BP diastolic 53–84; PULSE 55–76; RESP 9–22; TEMP 36.4–36.5; O2SAT 95–99; BMI 22.1
--- NOTE | ~2024-10-07 | XR_ITS ---
EXAMINATION: XR chest 1V portable DATE: 10/07/2024 13:18 INDICATION: Weakness. TECHNIQUE: frontal view of the chest was obtained. COMPARISON: Chest radiograph and CT dated 07/05/2024 FINDINGS: Skinfold projects over the right lung. Right lung volume is decreased. Small right pleural effusion w ith mild streaky opacities at the right lung base which could represent associated atelectasis or pne umonia. Left lung remains clear. No pneumothorax or left-sided pleural effusion. Mild cardiomegaly. I VC filter projects over the lumbar spine likely due to some leftward rotation of the patient. IMPRESSION: 1. Decreased right lung volume with small right pleural effusion and associated right basilar atelect asis and/or pneumonia. 2. Cardiomegaly. Reviewed, dictated and finalized at location A. IMPRESSION: 1. Decreased right lung volume with small right pleural effusion and associated right basilar atelectasis and/or pneumonia. 2. Cardiomegaly.
--- NOTE | ~2024-10-07 | CT_ITS ---
EXAMINATION: CT brain wo con DATE: 10/07/2024 11:35 INDICATION: Acute mental status changes TECHNIQUE: Computed tomography (CT) of the head was performed without intravenous contrast. Sagittal and coronal reconstructions were performed. The mA was adjusted according to patient size. Iterative reconstruction technique was employed. The dose-length product was 354.92 mGy-cm. COMPARISON: head CT dated 07/05/2024 FINDINGS: Again seen is a small region of encephalomalacia in the left occipital lobe consistent with sequela o f old infarct. Streak artifact associated with the petrous portion of the left temporal bone extends obliquely across portions of the left cerebellar hemisphere. No acute intracranial hemorrhage, acute infarction or abnormal extra axial fluid collection. There is mild scattered white matter hypoattenua tion consistent with chronic small vessel ischemic disease. Ventricles are normal and symmetric. No mass/mass effect. The orbits, paranasal sinuses and mastoid air cells are normal. IMPRESSION: 1. Old left occipital lobe infarct. No acute intracranial process. Reviewed, dictated and finalized at location A.
--- NOTE | ~2024-10-07 | XR_ITS ---
XR chest 1V portable Ordering provider: Ema Camacho APRN History: 74 years Male with . Possible pneumonia . Comparison: 11/21/2024 FINDINGS: MEDIASTINUM: The cardiac silhouette is not enlarged. LUNGS: No pneumothorax. Opacification in the right lung base is seen medially suggestive of atelectas is versus pneumonia. Right pleural effusion is not excluded. OTHER: No free air under the diaphragm. IMPRESSION: Right basilar atelectasis versus pneumonia with no change from previous examination. Minimal right pl eural effusion. Reviewed, dictated and finalized at location A. IMPRESSION: Right basilar atelectasis versus pneumonia with no change from previous examina tion. Minimal right pleural effusion.
--- NOTE | ~2024-10-07 | CT_ITS ---
CLINICAL INDICATION: Pneumonia is suspected clinically COMPARISON: Examination is compared with multiple plain film studies performed 10/08/2024 and dating ba ck to 07/05/2024. TECHNIQUE: Multiple contiguous axial images of the chest was performed following the administration o f intravenous contrast. This CT examination was performed utilizing dose reduction techniques. 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 Diffuse pleural thickening is also identified. Within the medial margin of the right lower lobe dense consolidation is present, consistent with patient's previous chest radiograph. The remainder of the lungs are otherwise clear. HEART: The heart is enlarged, without pericardial effusion. MEDIASTINUM: No pathologically enlarged or morphologically suspicious lymph nodes are identified within the medias tinum, bilateral axilla, within the soft tissues of the anterior chest wall. SOFT TISSUES OF THE CHEST: Unremarkable. BONES OF THE CHEST: No acute fracture. No lytic or blastic lesions are identified. Significant kyphosis. IMPRESSION: Consolidation within the medial segment of the right lower lobe. The remainder of the lungs are clear. Reviewed, dictated and finalized at location A.
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
--- NOTE | 2024-10-07 10:53 | ECG_ITS ---
Test Date: 2024-10-07 10:58:02 Measurements Intervals [place] Rate: 59 P: -25 NV: 243 QRS: -24 QRSD: 110 T: 21 QT: 438 QTc: 434 Interpretive Statements SINUS BRADYCARDIA WITH FIRST DEGREE AV BLOCK DELAYED PRECORDIAL R/S TRANSITION LEFT VENTRICULAR HYPERTROPHY CONSIDER INFERIOR INFARCT, AGE INDETERMINATE BASELINE ARTIFACT- I, II, III, AVR, AVL, AVF, V1-V6 ABNORMAL ECG Compared to ECG 06/11/2024 00:10:52 HEART RATE HAS DECREASED Electronically Signed On 10-07-2024 14:46:18 CDT by Jourdan Dhaliwal D.O.
[2024-10-07 10:59] LABS: Glucose Point of Care 88 mg/dl (65-105)
--- OUTSIDE RECORDS SUMMARY | 2024-10-07 11:06 | XMS_ITS | Encounter Summary ---
Author Organization [facility] Address [address] [place] [address] Care Team Providers Care Ambulance Attendant Name Role Phone Unavailable Primary Care Provider Unavailabl e Encounter Details Date Type Department Care Team (Late st Contact Info) Description 01/13/2006 Outpatient Historical [facility] ([facility]) [address] [place] [address] Phyllis Bajwa MD [address] [address] [address] [place] [address] Social History Tobacco Use Types Packs/Day Years Used Date Smoking Tobacco: Never Assessed Sex and Gender Information Value Date Recorded Sex Assigned at Not on file Legal Sex Male 3:46 AM [employer]OWER [employer]EL 

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
--- OUTSIDE RECORDS SUMMARY | 2024-10-07 11:06 | XMS_ITS | Encounter Summary ---
Author Organization [facility] Address 

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
--- OUTSIDE RECORDS SUMMARY | 2024-10-07 11:06 | XMS_ITS | Encounter Summary ---
Author Organization [employer] Address [address] [place] [address] Care Team Providers Care Nurse Special Name Role Phone Unavailable Primary Care Provider Unavailabl e Encounter Details Date Type Department Care Team (Latest Contact Info) Description 01/13/2006 Inpatient Historical HIS [place] [address] [place] [address] Other Specified Rehabilitation Procedure (Primary Dx) Social History Tobacco Use Types Packs/Day Years Used Date Smoking Tobacco: Never Assessed Sex and Gender Information Value Date Recorded Sex Assigned at Not on file Legal Sex Male 3:46 AM [employer] Gender Identity Not on file Sexual Orientation [...] ABG ORDERABLES Final Result Performing Organization Address [facility] Phone Number INTERFACE SYSTEM Refer [...] ORDERABLES Final Re sult Performing Organization Address [facility] Phone Number INTERFACE SYSTEM Refer [...] fL INTERFACE SYSTEM 03/14/2006 4:37 AM [facility] Final Re sult Performing Organization Address [facility] Phone Number INTERFACE SYSTEM Refer to clinic/hospital department * MAGNESIUM LEVEL (03/14/2006 4:37 AM CDT) MAGNESIUM 2.0 1.5 - 2.5 mg/dL INTERFACE SYSTEM 03/14/2006 4:37 AM CDT Rita Esqueda MD CHEMISTRY ORDERABLES Final Res ult Performing Organization Address [facility] Phone Number INTERFACE SYSTEM Refer to [...] mmol/L INTERFACE SYSTEM 03/14/2006 4:37 AM [facility] Final Res ult Performing Organization Address [facility] Phone Number INTERFACE SYSTEM Refer to clinic/hospital department * (ABNORMAL) C-REACTIVE PROTEIN (03/14/2006 4:37 AM CDT) CRP 4.1(H) 0.0 - 0.8 mg/dL INTERFACE SYSTEM 03/14/2006 4:37 AM CDT [facility] CHEMISTRY ORDERABLES Final Res ult Performing Organization Address [facility] Phone Number INTERFACE SYSTEM Refer to clinic/hospital department * VANCOMYCIN LEVEL TROUGH (03/13/2006 1:02 PM CDT) VANCOMYCIN, TROUGH 8.7 5.0 - 15.0 ug/mL INTERFACE SYSTEM Comment: Vancomycin Trough Toxic Level= >15.0 ug/mL 03/13/2006 1:02 PM CDT [facility] ORDERABLES Final Res ult Performing Organization Address [facility] Phone Number INTERFACE SYSTEM Refer to [...] ORDERABLES Final R esult Performing Organization Address [facility] Phone Number INTERFACE SYSTEM Refer to clinic/hospital department * C-REACTIVE PROTEIN, CSF (03/12/2006 3:10 PM CDT) CRP, CSF 0.15 mg/dL INTERFACE SYSTEM Comment: Note: New methodology using CSF CRP (highly sensitive) assay is effective 12/11/03. No reference range has been established for CSF CRP. 03/12/2006 3:10 PM CDT Alexa Dillon MD BODY FLUIDS AND STOOLS Final Result Performing Organization Address [facility] Phone Number INTERFACE SYSTEM Refer to [...] AND STOOLS Final Result Performing Organization Address [facility] Phone Number INTERFACE SYSTEM Refer to clinic/hospital department * (ABNORMAL) TOTAL PROTEIN, CSF (03/12/2006 3:10 PM CDT) PROTEIN, CSF 365(H) 15 - 45 mg/dL INTERFACE SYSTEM Comment: New CSF Protein Quantitative Methodology - Note New Reference Range. bloody sample 03/12/2006 3:10 PM CDT Aman Gottlieb DO BODY FLUIDS AND STOOLS Final Result Performing Organization Address [facility] Phone Number INTERFACE SYSTEM Refer to [...] PM and read back verified. RBC, CSF 418781(H) <=0 /uL INTERFACE SYSTEM 03/12/2006 3:10 PM CDT us Aman Gottlieb DO BODY FLUIDS AND STOOLS Final Result Performing Organization Address [facility] de Phone Number INTERFACE SYSTEM Refer [...] HEMATOLOGY ORDERABLES Final Result Performing Organization Address [facility] de Phone Number INTERFACE SYSTEM Refer [...] HEMATOLOGY ORDERABLES Final Result Performing Organization Address [facility] Phone Number INTERFACE SYSTEM Refer [...] ORDERABLES Final R esult Performing Organization Address [facility] de Phone Number INTERFACE SYSTEM Refer [...] HEMATOLOGY ORDERABLES Final Result Performing Organization Address [facility] de Phone Number INTERFACE SYSTEM Refer [...] HEMATOLOGY ORDERABLES Final Result Performing Organization Address [facility] Co de Phone Number INTERFACE SYSTEM Refer to clinic/hospital department * (ABNORMAL) C-REACTIVE PROTEIN (03/11/2006 4:40 AM CDT) CRP 6.5(H) 0.0 - 0.8 mg/dL INTERFACE SYSTEM 03/11/2006 4:40 AM CDT Sushil Arroyo MD CHEMISTRY ORDERABLES Final R [facility] Performing Organization Address [facility] Phone Number INTERFACE SYSTEM Refer [...] Sushil Arroyo MD CHEMISTRY ORDERABLES Final R [facility] Performing Organization Address [facility] Phone Number INTERFACE SYSTEM Refer [...] patients with mechanical heart valves or post [place]. Pediatric (12 years and under): 1.5 - [...] HEMATOLOGY ORDERABLES Final Result Performing Organization Address [facility] Phone Number INTERFACE SYSTEM Refer [...] ORDERABLES Final Resul t Performing Organization Address [facility] de Phone Number INTERFACE SYSTEM Refer [...] HEMATOLOGY ORDERABLES Final Result Performing Organization Address [facility] de Phone Number INTERFACE SYSTEM Refer [...] patients with mechanical heart valves or post [place]. Pediatric (12 years and under): 1.5 - [...] HEMATOLOGY ORDERABLES Final Result Performing Organization Address [facility] de Phone Number INTERFACE SYSTEM Refer [...] patients with mechanical heart valves or post [place]. Pediatric (12 years and under): 1.5 - [...] ORDERABLES Final Res ult Performing Organization Address [facility] de Phone Number INTERFACE SYSTEM Refer [...] ORDERABLES Final Res ult Performing Organization Address [facility] Phone Number INTERFACE SYSTEM Refer [...] ORDERABLES Final Res ult Performing Organization Address [facility] Phone Number INTERFACE SYSTEM Refer to clinic/hospital department * (ABNORMAL) C-REACTIVE PROTEIN (03/08/2006 6:34 PM CDT) CRP 5.2(H) 0.0 - 0.8 mg/dL INTERFACE SYSTEM 03/08/2006 6:34 PM CDT us Keenan Mandujano MD CHEMISTRY ORDERABLES Final Resu lt Performing Organization Address [facility] [place] Phone Number INTERFACE SYSTEM Refer to clinic/hospital [...] URINE ORDERABLES Final Result Performing Organization Address [facility] Phone Number INTERFACE SYSTEM Refer [...] patients with mechanical heart valves or post [place]. Pediatric (12 years and under): 1.5 - [...] HEMATOLOGY ORDERABLES Final Result Performing Organization Address [facility] Phone Number INTERFACE SYSTEM Refer [...] ORDERABLES Final Resul t Performing Organization Address [facility] Phone Number INTERFACE SYSTEM Refer [...] HEMATOLOGY ORDERABLES Final Result Performing Organization Address [facility] Phone Number INTERFACE SYSTEM Refer [...] HEMATOLOGY ORDERABLES Final Result Performing Organization Address [facility] de Phone Number INTERFACE SYSTEM Refer [...] ORDERABLES Final R esult Performing Organization Address [facility] de Phone Number INTERFACE SYSTEM Refer [...] patients with mechanical heart valves or post [place]. Pediatric (12 years and under): 1.5 - [...] HEMATOLOGY ORDERABLES Final Result Performing Organization Address [facility] Phone Number INTERFACE SYSTEM Refer [...] URINE ORDERABLES Final Result Performing Organization Address [facility] Phone Number INTERFACE SYSTEM Refer [...] HEMATOLOGY ORDERABLES Final Result Performing Organization Address [facility] Phone Number INTERFACE SYSTEM Refer [...] HEMATOLOGY ORDERABLES Final Result Performing Organization Address [facility] Phone Number INTERFACE SYSTEM Refer [...] ORDERABLES Final R esult Performing Organization Address [facility] de Phone Number INTERFACE SYSTEM Refer [...] HEMATOLOGY ORDERABLES Final Result Performing Organization Address [facility] Phone Number INTERFACE SYSTEM Refer [...] HEMATOLOGY ORDERABLES Final Result Performing Organization Address [facility] Co de Phone Number INTERFACE [...] INTERFACE SYSTEM 02/26/2006 12:4 4 PM CDT [facility] HEMATOLOGY ORDERABLES Final Re sult Performing Organization Address [facility] de Phone Number INTERFACE SYSTEM Refer to clinic/hospital department * C-REACTIVE PROTEIN (02/26/2006 12:44 PM CDT) CRP 0.2 0.0 - 0.8 mg/dL INTERFACE SYSTEM 02/26/2006 12:4 4 PM [facility] CHEMISTRY ORDERABLES Final Res ult Performing Organization Address [facility] de Phone Number INTERFACE SYSTEM Refer [...] ORDERABLES Final Res ult Performing Organization Address [facility] Phone Number INTERFACE SYSTEM Refer [...] ORDERABLES Final Resul t Performing Organization Address [facility] Phone Number INTERFACE SYSTEM Refer [...] K/uL INTERFACE SYSTEM 02/25/2006 4:36 AM CDT [facility] HEMATOLOGY ORDERABLES Final Re sult Performing Organization Address [facility] de Phone Number INTERFACE SYSTEM Refer [...] fL INTERFACE SYSTEM 02/25/2006 4:36 AM CDT [facility] HEMATOLOGY ORDERABLES Final Re sult Performing Organization Address [facility] Phone Number INTERFACE SYSTEM Refer [...] mmol/L INTERFACE SYSTEM 02/25/2006 4:36 AM CDT [facility] Zaid CHEMISTRY ORDERABLES Final Res ult Performing Organization Address [facility] Phone Number INTERFACE SYSTEM Refer to clinic/hospital department * C-REACTIVE PROTEIN (02/25/2006 4:36 AM CDT) CRP 0.2 0.0 - 0.8 mg/dL INTERFACE SYSTEM 02/25/2006 4:36 AM CDT [facility] CHEMISTRY ORDERABLES Final Res ult Performing Organization Address [facility] Phone Number INTERFACE SYSTEM Refer [...] URINE ORDERABLES Final Result Performing Organization Address [facility] Phone Number INTERFACE SYSTEM Refer [...] patients with mechanical heart valves or post [place]. Pediatric (12 years and under): 1.5 - [...] patients with mechanical heart valves or post [place]. Pediatric (12 years and under): 1.5 - [...] HEMATOLOGY ORDERABLES Final Result Performing Organization Address [facility] Phone Number INTERFACE SYSTEM Refer [...] patients with mechanical heart valves or post [place]. Pediatric (12 years and under): 1.5 - [...] HEMATOLOGY ORDERABLES Final Result Performing Organization Address [facility] Phone Number INTERFACE SYSTEM Refer [...] ORDERABLES Final Resul t Performing Organization Address [facility] Phone Number INTERFACE SYSTEM Refer [...] patients with mechanical heart valves or post [place]. Pediatric (12 years and under): 1.5 - [...] HEMATOLOGY ORDERABLES Final Result Performing Organization Address [facility] Phone Number INTERFACE SYSTEM Refer [...] patients with mechanical heart valves or post [place]. Pediatric (12 years and under): 1.5 - [...] HEMATOLOGY ORDERABLES Final Result Performing Organization Address [facility] de Phone Number INTERFACE SYSTEM Refer [...] ORDERABLES Final Resul t Performing Organization Address [facility] de Phone Number INTERFACE SYSTEM Refer [...] patients with mechanical heart valves or post [place]. Pediatric (12 years and under): 1.5 - [...] ORDERABLES Final Res ult Performing Organization Address [facility] Phone Number INTERFACE SYSTEM Refer [...] patients with mechanical heart valves or post [place]. Pediatric (12 years and under): 1.5 - [...] ORDERABLES Final Res ult Performing Organization Address [facility] Phone Number INTERFACE SYSTEM Refer [...] patients with mechanical heart valves or post [place]. Pediatric (12 years and under): 1.5 - [...] HEMATOLOGY ORDERABLES Final Result Performing Organization Address [facility] de Phone Number INTERFACE SYSTEM Refer [...] ORDERABLES Final Res ult Performing Organization Address [facility] Co de Phone Number INTERFACE [...] ORDERABLES Final Res ult Performing Organization Address [facility] Co de Phone Number INTERFACE [...] patients with mechanical heart valves or post [place]. Pediatric (12 years and under): 1.5 - [...] HEMATOLOGY ORDERABLES Final Result Performing Organization Address [facility]/[place] Co de Phone Number INTERFACE SYSTEM Refer [...] ORDERABLES Final Resul t Performing Organization Address [facility] Phone Number INTERFACE SYSTEM Refer [...] HEMATOLOGY ORDERABLES Final Result Performing Organization Address [facility] Phone Number INTERFACE SYSTEM Refer [...] HEMATOLOGY ORDERABLES Final Result Performing Organization Address [facility] de Phone Number INTERFACE SYSTEM Refer [...] ORDERABLES Final R esult Performing Organization Address [facility]/[place] Co de Phone Number INTERFACE SYSTEM Refer [...] patients with mechanical heart valves or post [place]. Pediatric (12 years and under): 1.5 - [...] HEMATOLOGY ORDERABLES Final Result Performing Organization Address City/[place]/[facility] Co de Phone Number INTERFACE [...] patients with mechanical heart valves or post [place]. Pediatric (12 years and under): 1.5 - [...] ORDERABLES Final Resu lt Performing Organization Address [facility] de Phone Number INTERFACE SYSTEM Refer [...] ORDERABLES Final Res ult Performing Organization Address [facility] de Phone Number INTERFACE SYSTEM Refer [...] ORDERABLES Final Res ult Performing Organization Address [facility] de Phone Number INTERFACE SYSTEM Refer [...] patients with mechanical heart valves or post [place]. Pediatric (12 years and under): 1.5 - [...] ORDERABLES Final Res ult Performing Organization Address [facility] Phone Number INTERFACE SYSTEM Refer [...] patients with mechanical heart valves or post [place]. Pediatric (12 years and under): 1.5 - [...] ORDERABLES Final Res t Performing Organization Address [facility] Phone Number INTERFACE SYSTEM Refer [...] patients with mechanical heart valves or post [place]. Pediatric (12 years and under): 1.5 - 3.0 Although the target range in children is not well established , INR values of 1.5 - 3.0 are recommended for most patients. Higher values have been used in children with prosthetic cardiac valves and hereditary clotting disorders. (<3 days) therapeutic ranges have not been established. 01/28/2006 4:52 AM CDT Result [facility] Keenan Mandujano MD HEMATOLOGY ORDERABLES Final [facility] Performing Organization Address [facility] Phone Number INTERFACE SYSTEM Refer [...] patients with mechanical heart valves or post [place]. Pediatric (12 years and under): 1.5 - [...] ORDERABLES Final Res ult Performing Organization Address [facility] Phone Number INTERFACE SYSTEM Refer [...] patients with mechanical heart valves or post [place]. Pediatric (12 years and under): 1.5 - [...] ORDERABLES Final Res ult Performing Organization Address [facility] Phone Number INTERFACE SYSTEM Refer [...] patients with mechanical heart valves or post [place]. Pediatric (12 years and under): 1.5 - [...] ORDERABLES Final Res ult Performing Organization Address [facility] Phone Number INTERFACE SYSTEM Refer [...] patients with mechanical heart valves or post [place]. Pediatric (12 years and under): 1.5 - 3.0 Although the target range in children is not well established , INR values of 1.5 - 3.0 are recommended for most patients. Higher values have been used in children with prosthetic cardiac valves and hereditary clotting disorders. (<3 days) therapeutic ranges have not been established. 01/23/2006 4:57 AM CDT Result [facility] Keenan Mandujano MD HEMATOLOGY ORDERABLES Final Res ult Performing Organization Address [facility] Phone Number INTERFACE SYSTEM Refer [...] patients with mechanical heart valves or post [place]. Pediatric (12 years and under): 1.5 - [...] ORDERABLES Final Res ult Performing Organization Address [facility] Phone Number INTERFACE SYSTEM Refer [...] ORDERABLES Final Resu lt Performing Organization Address [facility] Phone Number INTERFACE SYSTEM Refer [...] patients with mechanical heart valves or post [place]. Pediatric (12 years and under): 1.5 - 3.0 Although the target range in children is not well established , INR values of 1.5 - 3.0 are recommended for most patients. Higher values have been used in children with prosthetic cardiac valves and hereditary clotting disorders. (<3 days) therapeutic ranges have not been established. 01/20/2006 5:00 AM CDT Keenan Mnadujano MD HEMATOLOGY ORDERABLES Final Res ult Performing Organization Address [facility] Phone Number INTERFACE SYSTEM Refer [...] patients with mechanical heart valves or post [place]. Pediatric (12 years and under): 1.5 - [...] ORDERABLES Final Resu lt Performing Organization Address [facility] Phone Number INTERFACE SYSTEM Refer [...] patients with mechanical heart valves or post [place]. Pediatric (12 years and under): 1.5 - [...] ORDERABLES Final Resu lt Performing Organization Address [facility] Co de Phone Number INTERFACE [...] patients with mechanical heart valves or post [place]. Pediatric (12 years and under): 1.5 - [...] HEMATOLOGY ORDERABLES Final Result Performing Organization Address [facility] Co de Phone Number INTERFACE [...] ORDERABLES Final R esult Performing Organization Address [facility] Co de Phone Number INTERFACE [...] ORDERABLES Final Resul t Performing Organization Address [facility]/ZIP Co de Phone Number INTERFACE SYSTEM Refer to clinic/hospital department documented in this encounter Visit Diagnoses Diagnosis Other specified rehabilitation procedure(V57.89)- Primary Other specified rehabilitation procedure documented in this encounter
--- OUTSIDE RECORDS SUMMARY | 2024-10-07 11:07 | XMS_ITS | Encounter Summary ---
Author Organization [employer] Address 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 CHEMISTRY ORDERABLES Final Res ult Performing Organization Address [facility] Phone Number INTERFACE SYSTEM Refer to clinic/hospital department * (ABNORMAL) VANCOMYCIN LEVEL TROUGH (03/31/2006 11:15 AM CDT) Pathologist [facility] VANCOMYCIN, TROUGH 18.3(AA) 5.0 - 15.0 ug/mL INTERFACE SYSTEM Comment: Vancomycin Trough Toxic Level= >15.0 ug/mL Results called to Amy_ at 03/31/2006 12:05 PM and read back verified. 03/31/2006 11:1 5 AM CDT Sushil Arroyo MD CHEMISTRY ORDERABLES Final R esult Performing Organization Address [facility] Phone Number INTERFACE SYSTEM Refer to clinic/hospital department * (ABNORMAL) CBC WITH DIFFERENTIAL (03/29/2006 5:15 AM CDT) Pathologist [facility] NEUTROPHILS 64 45 - 70 % INTERFAC [...] ORDERABLES Final Res ult Performing Organization Address [facility] Phone Number INTERFACE SYSTEM Refer [...] ORDERABLES Final Res ult Performing Organization Address [facility] Number INTERFACE SYSTEM Refer to clinic/hospital department * C-REACTIVE PROTEIN (03/29/2006 5:15 AM CDT) CRP 0.3 0.0 - 0.8 mg/dL INTERFACE SYSTEM 03/29/2006 5:1 5 AM CDT us Keenan Mandujano MD CHEMISTRY ORDERABLES Final Resu lt Performing Organization Address [facility] Phone Number INTERFACE SYSTEM Refer [...] ORDERABLES Final Resu lt Performing Organization Address [facility] Phone Number INTERFACE SYSTEM Refer [...] ORDERABLES Final Re sult Performing Organization Address [facility] Phone Number INTERFACE SYSTEM Refer [...] INTERFACE SYSTEM 03/24/2006 12:1 0 PM CDT [employer] HEMATOLOGY ORDERABLES Final Re sult Performing Organization Address [facility] Phone Number INTERFACE SYSTEM Refer to clinic/hospital department * VANCOMYCIN LEVEL TROUGH (03/24/2006 12:10 PM CDT) VANCOMYCIN, TROUGH 11.3 5.0 - 15.0 ug/mL INTERFACE SYSTEM Comment: Vancomycin Trough Toxic Level= >15.0 ug/mL 03/24/2006 12:1 0 PM CDT [employer] Zaid CHEMISTRY ORDERABLES Final Res ult Performing Organization Address [facility] Phone Number INTERFACE SYSTEM Refer to clinic/hospital department * C-REACTIVE PROTEIN (03/24/2006 12:10 PM CDT) CRP 0.6 0.0 - 0.8 mg/dL INTERFACE SYSTEM 03/24/2006 12:1 0 PM CDT [employer] Zaid CHEMISTRY ORDERABLES Final Res ult Performing Organization Address [facility] Phone Number INTERFACE SYSTEM Refer [...] ORDERABLES Final Res ult Performing Organization Address [facility] Co de Phone Number INTERFACE [...] INTERFACE SYSTEM 03/23/2006 11:3 0 AM CDT [employer] HEMATOLOGY ORDERABLES Final Re sult Performing Organization Address [facility] de Phone Number INTERFACE SYSTEM Refer to clinic/hospital department * (ABNORMAL) CBC WITH DIFFERENTIAL (03/23/2006 11:30 AM CDT) Pathologist [facility] WBC 6.1 4.0 - 9.8 K/uL INTERFACE [...] INTERFACE SYSTEM 03/23/2006 11:3 0 AM CDT [employer] HEMATOLOGY ORDERABLES Final Re sult Performing Organization Address [facility] de Phone Number INTERFACE SYSTEM Refer to clinic/hospital department * VANCOMYCIN LEVEL TROUGH (03/23/2006 11:30 AM CDT) VANCOMYCIN, TROUGH 6.2 5.0 - 15.0 ug/mL INTERFACE SYSTEM Comment: Vancomycin Trough Toxic Level= >15.0 ug/mL 03/23/2006 11:3 0 AM CDT [employer] CHEMISTRY ORDERABLES Final Res ult Performing Organization Address [facility] Phone Number INTERFACE SYSTEM Refer to clinic/hospital department * (ABNORMAL) C-REACTIVE PROTEIN (03/23/2006 11:30 AM CDT) CRP 1.0(H) 0.0 - 0.8 mg/dL INTERFACE SYSTEM 03/23/2006 11:3 0 AM CDT us [facility] CHEMISTRY ORDERABLES Final Res ult Performing Organization Address [facility] Phone Number INTERFACE SYSTEM [...] INTERFACE SYSTEM 03/23/2006 11:3 0 AM CD[facility] CHEMISTRY ORDERABLES Final Res ult Performing Organization Address [facility] Phone Number INTERFACE SYSTEM Refer [...] ORDERABLES Final R esult Performing Organization Address [facility] Phone Number INTERFACE SYSTEM Refer [...] /HPF INTERFACE SYSTEM 03/22/2006 8:30 PM CDT [employer] [facility] URINE ORDERABLES Final Result Performing Organization Address [facility] Phone Number INTERFACE SYSTEM Refer [...] Sushil Arroyo MD CHEMISTRY ORDERABLES Final R [facility] Performing Organization Address [facility] de Phone Number INTERFACE SYSTEM Refer to [...] ORDERABLES Final R esult Performing Organization Address [facility] Co de Phone Number INTERFACE [...] HEMATOLOGY ORDERABLES Final Result Performing Organization Address [facility] Phone Number INTERFACE SYSTEM Refer [...] HEMATOLOGY ORDERABLES Final Result Performing Organization Address [facility] Phone Number INTERFACE SYSTEM Refer [...] ORDERABLES Final R esult Performing Organization Address [facility] Phone Number INTERFACE SYSTEM Refer [...] ORDERABLES Final Resul t Performing Organization Address [facility] Phone Number INTERFACE SYSTEM Refer to clinic/hospital department documented in this encounter Visit Diagnoses Diagnosis Other specified rehabilitation procedure(V57.89)- Primary Other specified rehabilitation procedure documented in this encounter
--- OUTSIDE RECORDS SUMMARY | 2024-10-07 11:07 | XMS_ITS | Encounter Summary ---
Author Organization [facility] Address 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
--- OUTSIDE RECORDS SUMMARY | 2024-10-07 11:07 | XMS_ITS | Encounter Summary ---
Author Organization [facility] Address [address] [place] [address] Care Team Providers Care Moving Van Driver Name Role Phone Unavailable Primary Care Provider Unavailabl e Encounter Details Date Type Department Care Team (Late st Contact Info) Description 09/26/2019 Lab Requisition [facility] Services [address] [place] [address] [facility], External Provider [address] [place] [address] Unspecified abnormal findings in urine Social History Tobacco Use Types Packs/Day Years Used Date Smoking Tobacco: Never Assessed Sex and Gender Information Value Date Recorded Sex Assigned at Not on file 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 Gender Identity Not on file Sexual Orientation [...] - 145 mmol/L 09/26/2019 8:53 PM CDT [facility] POTASSIUM 5.1 3.4 - 5.1 mmol/L 09/26/2019 8:53 PM CDT [facility] CHLORIDE 105 98 - 107 mmol/L 09/26/2019 8:53 PM [facility] CO2 23 22 - 29 mmol/L 09/26/2019 8:53 PM [facility] CALCIUM 8.6 8.6 - 10.4 mg/dL 09/26/2019 8:53 PM [facility] BUN 28(H) 6 - 20 mg/dL 09/26/2019 8:53 PM [facility] CREATININE 1.07 0.67 - 1.17 mg/dL 09/26/2019 8:53 PM [facility] Comment:The GFR result is no t clinically significant on patients <18 or >70 years of age. GLUCOSE 83 74 - 99 mg/dL 09/26/2019 8:53 PM [facility] TOTAL PROTEIN 6.7 6.3 - 8.7 g/dL 09/26/2019 8:53 PM [facility] ALBUMIN 4.2 3.5 - 5.2 g/dL 09/26/2019 8:53 PM [facility] BILIRUBIN TOTAL 0.3 0.2 - 1.3 mg/dL 09/26/2019 8:53 PM [facility] ALKALINE PHOSPHATASE 99 40 - 150 U/L 09/26/2019 8:53 PM [facility] AST 18 0 - 41 U/L 09/26/2019 8:53 PM [facility] ALT 18 0 - 41 U/L 09/26/2019 8:53 PM [facility] GFR >60 mL/min/1.7 3 sq meter 09/26/2019 8:53 PM [facility] Comment: eGFR has not been validated for [...] 3 sq meter 09/26/2019 8:53 PM CDT [facility] ANION GAP 14 8 - 16 mmol/L 09/26/2019 8:53 PM CDT [facility] Blood BLOOD SPECIMEN / Unknown Collection / Unknown 09/26/2019 3:44 PM CDT 09/26/2019 8:17 PM CDT us External Provider [facility] CHEMISTRY ORDERABLES Johanne l Result [facility] CLIA# [id number] [place] [address] * (ABNORMAL) CBC WITH DIFFERENTIAL (09/26/2019 3:44 PM CDT) WBC 6.6 4.5 - 10.5 K/uL 09/26/2019 8:26 PM CDT [facility] RBC 3.80(L) 4.50 - 5.40 M/uL 09/26/2019 8:26 PM CDT [facility] HEMOGLOBIN 11.5(L) 13.6 - 16.5 g/dL 09/26/2019 8:26 PM CDT [facility] HEMATOCRIT 34.3(L) 40.0 - 48.0 % 09/26/2019 8:26 PM CDT [facility] MCV 90.2 82.0 - 99.0 fL 09/26/2019 8:26 PM CDT [facility] MCH 30.2 27.8 - 34.5 pg 09/26/2019 8:26 PM CDT [facility] MCHC 33.5 32.5 - 35.5 g/dL 09/26/2019 8:26 PM CDT [facility] RDW 15.8(H) 11.5 - 14.5 % 09/26/2019 8:26 PM CDT [facility] PLATELETS 175 160 - 420 K/uL 09/26/2019 8:26 PM CDT [facility] MPV 10.2 8.7 - 12.7 fL 09/26/2019 8:26 PM CDT [facility] NEUTROPHILS 68 45 - 70 % 09/26/2019 8:26 PM CDT [facility] LYMPHOCYTES 16 16 - 45 % 09/26/2019 8:26 PM CDT [facility] MONOCYTES 10 3 - 13 % 09/26/2019 8:26 PM CDT [facility] EOSINOPHILS 5 0 - 7 % 09/26/2019 8:26 PM CDT [facility] BASOPHILS 1 0 - 2 % 09/26/2019 8:26 PM CDT [facility] NEUTROPHIL ABSOLUTE 4.50 1.90 - 7.00 K/uL 09/26/2019 8:26 PM CDT [facility] LYMPHOCYTE ABSOLUTE 1.10 0.70 - 4.50 K/uL 09/26/2019 8:26 PM CDT [facility] MONOCYTE ABSOLUTE 0.60 0.10 - 1.30 K/uL 09/26/2019 8:26 PM CDT [facility] EOSINOPHIL ABSOLUTE 0.40 0.00 - 0.70 K/uL 09/26/2019 8:26 PM CDT [facility] BASOPHILS ABSOLUTE 0.00 0.00 - 0.20 K/uL 09/26/2019 8:26 PM CDT [facility] Blood BLOOD SPECIMEN / Unknown Collection / Unknown 09/26/2019 3:44 PM CDT 09/26/2019 8:17 PM CDT us External Provider [facility] HEMATOLOGY ORDERABLES Fin al Result [facility] CLIA# [id number] [place] [address] * (ABNORMAL) URINALYSIS WITH REFLEX MICROSCOPIC (09/26/2019 3:00 PM CDT) COLOR UA Yellow Pale to Dark Yellow 09/26/2019 8:52 PM CDT [facility] CLARITY UA Slightly Cloudy(A) Clear 09/26/2019 8:52 PM CDT [facility] SPECIFIC GRAVITY UA 1.019 1.003 - 1.035 09/26/2019 8:52 PM CDT [facility] PH UA 5.0 5.0 - 8.0 09/26/2019 8:52 PM CDT [facility] LEUKOCYTE ESTERASE UA Negative Negative 09/26/2019 8:52 PM CDT [facility] NITRITE UA Negative Negative 09/26/2019 8:52 PM CDT [facility] PROTEIN UA Negative Negative 09/26/2019 8:52 PM CDT [facility] GLUCOSE UA Negative Negative 09/26/2019 8:52 PM CDT [facility] KETONES UA Negative Negative 09/26/2019 8:52 PM CDT [facility] UROBILINOGEN UA Normal <2.0 mg/dL 0 8:52 PM CDT [facility] BILIRUBIN UA Negative Negative 09/26/2019 8:52 PM CDT [facility] BLOOD UA Negative Negative 09/26/2019 8:52 PM CDT [facility] Comment:Ascorbic acid may ca use false negative results for blood. A microscopic review was reflexed to rule out this interference. WBC UA 0-2 0 - 2 /hpf 09/26/2019 8:[facility] PM [facility] RBC UA 0-2 0 - 2 /hpf 09/26/2019 8:52 PM CDT [facility] BACTERIA UA 1+(A) Negative /hpf 09/26/2019 8:52 PM CDT [facility] EPITHELIAL CELLS, URINE 0-5 0 - 5 /hpf 09/26/2019 8:52 PM CDT [facility] HYALINE CAST 0-2 None Seen, 0-2 /lpf 09/26/2019 8:52 PM CDT [facility] Ascorbic Acid UA Positive(A) Negative 020 8:52 PM CDT [facility] Urine URINE SPECIMEN OBTAINED BY CLEAN CATCH PROCEDURE / Unknown Collection / Unknown 09/26/2019 3:00 PM CDT 09/26/2019 8:17 PM CDT us External Provider [facility] URINE ORDERABLES Final Re sult [facility] CLIA# [id number] [place] [address] documented in this encounter Visit Diagnoses Diagnosis Unspecified abnormal findings in urine documented in this encounter
--- OUTSIDE RECORDS SUMMARY | 2024-10-07 11:07 | XMS_ITS | Encounter Summary ---
Author Organization [facility] Address 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
--- OUTSIDE RECORDS SUMMARY | 2024-10-07 11:07 | XMS_ITS | Encounter Summary ---
Author Organization [facility] Address [address] [place] [address] Care Team Providers Care Superintendent Drivers Name Role Phone Unavailable Primary Care Provider Unavailabl e Encounter Details Date Type Department Care Team (Late st Contact Info) Description 01/08/2006 Outpatient Historical [facility] Trauma and General Surgery [address] [place] [facility] [address] Jayden James MD [address] [facility] [address] [facility] [address] Social History Tobacco Use Types Packs/Day Years Used Date Smoking Tobacco: Never Assessed Sex and Gender Information Value Date Recorded Sex Assigned at Not on file 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
--- OUTSIDE RECORDS SUMMARY | 2024-10-07 11:07 | XMS_ITS | Encounter Summary ---
Author Organization [facility] Address [address] [place] [address] Care Team Providers Care Crepe Box Tender Name Role Phone Unavailable Primary Care Provider Unavailabl e Encounter Details Date Type Department Care Team (Late st Contact Info) Description 01/04/2006 Outpatient Historical [facility] Trauma and General Surgery [address] [facility] [facility] [place] [facility] [address] Jayden James MD [address] [address] [facility] [address] Social History Tobacco Use Types Packs/Day Years Used Date Smoking Tobacco: Never Assessed Sex and Gender Information Value Date Recorded Sex Assigned at Not on file 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
--- OUTSIDE RECORDS SUMMARY | 2024-10-07 11:07 | XMS_ITS | Encounter Summary ---
Author Organization [facility] Address 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
--- OUTSIDE RECORDS SUMMARY | 2024-10-07 11:07 | XMS_ITS | Encounter Summary ---
Author Organization [facility] Address [address] [place] [address] Care Team Providers Care Consulting Senior Practice Director Name Role Phone Unavailable Primary Care Provider Unavailabl e Encounter Details Date Type Department Care Team (Late st Contact Info) Description 05/13/2019 Lab Requisition [facility] Laboratory Services [address] [place] [address] [facility], External Provider [address] [place] [address] Other fatigue Social History Tobacco Use Types Packs/Day Years Used Date Smoking Tobacco: Never Assessed Sex and Gender Information Value Date Recorded Sex Assigned at Not on file Legal Sex Male 3:46 AM WATCH REPAIR TECHNICIAN Gender Identity Not on file Sexual Orientation Not on file documented as of this encounter Plan of Treatment Not on file documented as of this encounter Procedures Procedure Name Priority Date/Time Associated Diagnosis Comments CBC WITH DIFFERENTIAL Stat 05/13/2019 4:50 PM WATCH REPAIR TECHNICIAN Other fatigue BASIC METABOLIC PANEL Stat 05/13/2019 4:50 PM WATCH REPAIR TECHNICIAN Other fatigue documented in this encounter Results * (ABNORMAL) CBC WITH DIFFERENTIAL (05/13/2019 4:50 PM WATCH REPAIR TECHNICIAN) [facility] WBC 6.1 4.5 - 10.5 K/uL 05/13/2019 9:52 PM WATCH REPAIR TECHNICIAN [facility] RBC 4.04(L) 4.50 - 5.40 M/uL 05/13/2019 9:52 PM WATCH REPAIR TECHNICIAN [facility] [place] HEMOGLOBIN 12.1(L) 13.6 - 16.5 g/dL 05/13/2019 9:52 PM WATCH REPAIR TECHNICIAN [facility] [place] HEMATOCRIT 37.1(L) 40.0 - 48.0 % 05/13/2019 9:52 PM [facility] [place] MCV 91.7 82.0 - 99.0 fL 05/13/2019 9:52 PM [facility] [place] MCH 30.0 27.8 - 34.5 pg 05/13/2019 9:52 PM [facility] [place] MCHC 32.7 32.5 - 35.5 g/dL 05/13/2019 9:52 PM [facility] [place] RDW 14.9(H) 11.5 - 14.5 % 05/13/2019 9:52 PM [facility] [place] PLATELETS 162 160 - 420 K/uL 05/13/2019 9:52 PM [facility] [place] MPV 9.8 8.7 - 12.7 fL 05/13/2019 9:52 PM [facility] [place] NEUTROPHILS 70 45 - 70 % 05/13/2019 9:52 PM [facility] [place] LYMPHOCYTES 16 16 - 45 % 05/13/2019 9:52 PM [facility] [place] MONOCYTES 10 3 - 13 % 05/13/2019 9:52 PM [facility] [place] EOSINOPHILS 4 0 - 7 % 05/13/2019 9:52 PM [facility] [place] BASOPHILS 1 0 - 2 % 05/13/2019 9:52 PM [facility] [place] NEUTROPHIL ABSOLUTE 4.20 1.90 - 7.00 K/uL 05/13/2019 9:52 PM [facility] [place] LYMPHOCYTE ABSOLUTE 0.90 K/uL 05/13/2019 9:52 PM [facility] [place] MONOCYTE ABSOLUTE 0.60 K/uL 05/13/2019 9:52 PM [facility] [place] EOSINOPHIL ABSOLUTE 0.30 0.00 - 0.70 K/uL 05/13/2019 9:52 PM [facility] [place] BASOPHILS ABSOLUTE 0.00 K/uL 05/13/2019 9:52 PM [facility] [place] Blood BLOOD SPECIMEN / Unknown Collection / Unknown 05/13/2019 4:50 PM WATCH REPAIR TECHNICIAN 05/13/2019 9:42 PM WATCH REPAIR TECHNICIAN us External Provider [facility] HEMATOLOGY ORDERABLES Fin al Result [facility] [place] LESTER# [id number] [place] [address] * (ABNORMAL) BASIC METABOLIC PANEL (05/13/2019 4:50 PM WATCH REPAIR TECHNICIAN) SODIUM 143 136 - 145 mmol/L 05/13/2019 10:11 PM [facility] [place] POTASSIUM 4.2 3.4 - 5.1 mmol/L 05/13/2019 10:11 PM [facility] [place] CHLORIDE 104 98 - 107 mmol/L 05/13/2019 10:[address] [facility] CO2 27 22 - 29 mmol/L 05/13/2019 10:[address] [facility] CALCIUM 8.5(L) 8.6 - 10.4 mg/dL 05/13/2019 10:[address] [facility] BUN 24(H) 6 - 20 mg/dL 05/13/2019 10:[address] [facility] CREATININE 1.09 0.70 - 1.20 mg/dL 05/13/2019 10:[address] [facility] Comment:The GFR result is no t clinically significant on patients <18 or >70 years of age. GLUCOSE 96 74 - 99 mg/dL 05/13/2019 10:11 PM [facility] [place] [place] GFR >60 mL/min/1.7 3 sq meter 05/13/2019 10:11 PM [facility] [place] Comment: eGFR has not been validated for [...] mL/min/1.7 3 sq meter 05/13/2019 10:11 PM WATCH REPAIR TECHNICIAN [facility] ANION GAP 12 8 - 16 mmol/L 05/13/2019 10:11 PM WATCH REPAIR TECHNICIAN [facility] [place] Blood BLOOD SPECIMEN / Unknown Collection / Unknown 05/13/2019 4:50 PM WATCH REPAIR TECHNICIAN 05/13/2019 9:42 PM WATCH REPAIR TECHNICIAN External Provider [facility] CHEMISTRY ORDERABLES Johanne l Result [facility] [place] CLIA# [id number] [place] [address] documented in this encounter Visit Diagnoses Diagnosis Other fatigue documented in this encounter
--- OUTSIDE RECORDS SUMMARY | 2024-10-07 11:07 | XMS_ITS | Clinical Summary ---
Author Organization [facility] Address [address] [place] [address] Care Team Providers Care Dairy Cattle Farm Worker Name Role Phone Unavailable Primary Care [...] daily. 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 Urine cx from [facility] on 05/04 also growing pseudomonas, resistant [...] to reach son and obtained collateral from [facility] - CT Head today. - Fall [...] oxycodone prn. Baclofen pump rx'd by the [facility]. Iron deficiency anemia, unspecified 10/26/2012 Gastric ulcer [...] Plan: Uses wheelchair at baseline. Resides at [facility]. Has baclofen pump/neurostimulator in place. 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
--- OUTSIDE RECORDS SUMMARY | 2024-10-07 11:07 | XMS_ITS | Encounter Summary ---
Author Organization Address [address] [place] [address] Care Team Providers Care Carbon Plant Grinder Name Role Phone Unavailable Primary Care Provider Unavailabl e Encounter Details Date Type Department Care Team (Late st Contact Info) Description 03/10/2006 Outpatient Historical [facility] [address] [address] Rita Esqueda MD 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
--- OUTSIDE RECORDS SUMMARY | 2024-10-07 11:07 | XMS_ITS | Encounter Summary ---
Author Organization [facility] Address [address] [place] [address] Care Team Providers Care Hammer Fitter Name Role Phone Unavailable Primary Care Provider Unavailabl e Encounter Details Date Type Department Care Team (Latest Contact Info) Description 03/15/2006 Inpatient Historical HIS PATIENT IN A BED Yenny Hauser MD NO ADDRESS ON FILE Devan Agrawal MD [address] [facility] 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 Gender Identity Not on file Sexual [...] ORDERABLES Final R esult Performing Organization Address City/[facility] Phone Number INTERFACE SYSTEM Refer to [...] ORDERABLES Final R esult Performing Organization Address City/[facility] Phone Number INTERFACE SYSTEM Refer to clinic/hospital department * MAGNESIUM LEVEL (03/19/2006 4:38 AM CDT) MAGNESIUM 1.7 1.5 - 2.5 mg/dL INTERFACE SYSTEM 03/19/2006 4:38 AM CDT Yenny Hauser MD CHEMISTRY ORDERABLES Final Re sult Performing Organization Address City/[facility] Co de Phone Number INTERFACE SYSTEM [...] ORDERABLES Final Re sult Performing Organization Address City/[facility] Co de Phone Number INTERFACE SYSTEM Refer to clinic/hospital department * VANCOMYCIN LEVEL TROUGH (03/18/2006 11:30 AM CDT) Pathologist [facility] VANCOMYCIN, TROUGH 11.5 5.0 - 15.0 ug/mL INTERFACE SYSTEM Comment: Vancomycin Trough Toxic Level= >15.0 ug/mL 03/18/2006 11:3 0 AM CDT Yenny Hauser MD CHEMISTRY ORDERABLES Final Re sult Performing Organization Address [facility] Co de Phone Number INTERFACE SYSTEM Refer to clinic/hospital department * (ABNORMAL) CBC WITH DIFFERENTIAL (03/18/2006 9:08 AM CDT) Pathologist [facility] NEUTROPHILS 76(H) 45 - 70 % INTERFAC [...] ORDERABLES Final Res ult Performing Organization Address City/[facility] de Phone Number INTERFACE SYSTEM [...] ORDERABLES Final Resu lt Performing Organization Address [facility] Phone Number INTERFACE SYSTEM Refer to [...] HEMATOLOGY ORDERABLES Final Result Performing Organization Address [facility] Phone Number INTERFACE SYSTEM Refer to [...] HEMATOLOGY ORDERABLES Final Result Performing Organization Address [facility] Phone Number INTERFACE SYSTEM Refer to clinic/hospital department * (ABNORMAL) C-REACTIVE PROTEIN (03/17/2006 4:45 AM CDT) CRP 2.4(H) 0.0 - 0.8 mg/dL INTERFACE SYSTEM 03/17/2006 4:45 AM CDT Historical Provider CHEMISTRY ORDERABLES Final R esult Performing Organization Address [facility] Phone Number INTERFACE SYSTEM Refer to [...] ORDERABLES Final R esult Performing Organization Address City/[facility] Phone Number INTERFACE SYSTEM Refer to clinic/hospital department * (ABNORMAL) ACETONE QUALITATIVE (03/16/2006 6:30 PM CDT) ACETONE QUAL 2+ (30 mg/dL)(A) Neg (<10 mg/dL) INTERFACE SYSTEM 03/16/2006 6:30 PM CDT us Historical Provider CHEMISTRY ORDERABLES Final R esult Performing Organization Address [facility] Phone Number INTERFACE SYSTEM Refer to clinic/hospital department * LACTIC ACID (03/16/2006 6:30 PM CDT) LACTIC ACID 1.0 0.5 - 2.2 mmol/L INTERFACE SYSTEM 03/16/2006 6:30 PM CDT us Historical Provider CHEMISTRY ORDERABLES Final R esult Performing Organization Address [facility] Phone Number INTERFACE SYSTEM Refer to [...] ORDERABLES Final Resu lt Performing Organization Address [facility] Phone Number INTERFACE SYSTEM Refer to [...] patients with mechanical heart valves or post MA. Pediatric (12 years and under): 1.5 - [...] HEMATOLOGY ORDERABLES Final Result Performing Organization Address City/[facility] Phone Number INTERFACE SYSTEM Refer to [...] ORDERABLES Final R esult Performing Organization Address City/[facility] de Phone Number INTERFACE SYSTEM [...] ORDERABLES Final Res ult Performing Organization Address [facility] Phone Number INTERFACE SYSTEM Refer to [...] ORDERABLES Final Res ult Performing Organization Address [facility] de Phone Number INTERFACE SYSTEM [...]
--- OUTSIDE RECORDS SUMMARY | 2024-10-07 11:07 | XMS_ITS | Encounter Summary ---
Author Organization [facility] Address [address] [place] [address] Care Team Providers Care Cat Skinner Name Role Phone Unavailable Primary Care Provider Unavailabl e Encounter Details Date Type Department Care Team (Late st Contact Info) Description 01/11/2006 Outpatient Historical [facility] Trauma and General Surgery [address] [facility] [address] [id number] [place] [address] [place] [address] Social History Tobacco Use Types Packs/Day Years Used Date Smoking Tobacco: Never Assessed Sex and Gender Information Value Date Recorded Sex Assigned at Not on file Legal Sex Male 3:46 AM SECOND VP HR ASSESSMENT Gender Identity Not on file Sexual Orientation Not on file documented as of this encounter Plan of Treatment Not on file documented as of this encounter Visit Diagnoses Not on filedocumented in this encounter
--- OUTSIDE RECORDS SUMMARY | 2024-10-07 11:07 | XMS_ITS | Encounter Summary ---
Author Organization [facility] Address [address] [place] [address] Care Team Providers Care Dredge Lever Operator Name Role Phone Unavailable Primary Care Provider Unavailabl e Encounter Details Date Type Department Care Team (Late st Contact Info) Description 01/06/2006 Outpatient Historical [facility] Trauma and General Surgery [address] [facility] [address] [facility] [place] [address] Jayden James MD [address] [facility] [address] [facility] [place] [address] Social History Tobacco Use Types Packs/Day Years Used Date Smoking Tobacco: Never Assessed Sex and Gender Information Value Date Recorded Sex Assigned at Not on file Legal Sex Male 3: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
--- OUTSIDE RECORDS SUMMARY | 2024-10-07 11:07 | XMS_ITS | Encounter Summary ---
Author Organization [facility] Address [address] [place] [address] Care Team Providers Care Automobile Radiator Mechanic Name Role Phone Unavailable Primary Care Provider Unavailabl e Encounter Details Date Type Department Care Team (Late st Contact Info) Description 01/12/2006 Outpatient Historical [facility] Trauma and General Surgery [address] [facility] [address] [phone] [place] [address] [place] [address] Social History Tobacco Use Types Packs/Day Years Used Date Smoking Tobacco: Never Assessed Sex and Gender Information Value Date Recorded Sex Assigned at Not on file Legal Sex Male 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
--- OUTSIDE RECORDS SUMMARY | 2024-10-07 11:07 | XMS_ITS | Encounter Summary ---
Author Organization [facility] Address [address] [place] [address] Care Team Providers Care Gang Knife Fish Chopper Name Role Phone Unavailable Primary Care Provider Unavailabl e Encounter Details Date Type Department Care Team (Late st Contact Info) Description 01/09/2006 Outpatient Historical [facility] Trauma and General Surgery [address] [facility] [address] [phone] [place] [address] [place] [address] Social History Tobacco Use Types Packs/Day Years Used Date Smoking Tobacco: Never Assessed Sex and Gender Information Value Date Recorded Sex Assigned at Not on file Legal Sex Male 3:46 AM SUBSTATION ELECTRICIAN Gender Identity Not on file Sexual Orientation Not on file documented as of this encounter Plan of Treatment Not on file documented as of this encounter Visit Diagnoses Not on filedocumented in this encounter
--- OUTSIDE RECORDS SUMMARY | 2024-10-07 11:07 | XMS_ITS | Encounter Summary ---
Author Organization [employer] Address 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 Phone Number INTERFACE SYSTEM Refer [...] ORDERABLES Final Res ult Performing Organization Address [facility] Phone Number INTERFACE SYSTEM Refer [...] ORDERABLES Final Resu lt Performing Organization Address [facility] Phone Number INTERFACE SYSTEM Refer to clinic/hospital department * (ABNORMAL) POC GLUCOSE (01/08/2006 9:26 PM CDT) GLUCOSE POC 133(H) 65 - 109 mg/dL INTERFACE SYSTEM 01/08/2006 9:26 PM CDT José Fine MD POINT OF CARE TESTING Final Result Performing Organization Address [facility] Phone Number INTERFACE SYSTEM Refer to clinic/hospital department * (ABNORMAL) POC GLUCOSE (01/08/2006 5:25 PM CDT) GLUCOSE POC 125(H) 65 - 109 mg/dL INTERFACE SYSTEM 01/08/2006 5:25 PM CDT José Fine MD POINT OF CARE TESTING Final Result Performing Organization Address [facility] Phone Number INTERFACE SYSTEM Refer to clinic/hospital department * (ABNORMAL) POC GLUCOSE (01/08/2006 11:50 AM CDT) GLUCOSE POC 122(H) 65 - 109 mg/dL INTERFACE SYSTEM 01/08/2006 11:5 0 AM CDT us José Fine MD POINT OF CARE TESTING Final Result Performing Organization Address [facility] Phone Number INTERFACE SYSTEM Refer to clinic/hospital department * (ABNORMAL) POC GLUCOSE (01/08/2006 5:35 AM CDT) GLUCOSE POC 128(H) 65 - 109 mg/dL INTERFACE SYSTEM 01/08/2006 5:35 AM CDT us José Fine MD POINT OF CARE TESTING Final Result Performing Organization Address [facility] Phone Number INTERFACE SYSTEM Refer to clinic/hospital department * (ABNORMAL) POC GLUCOSE (01/07/2006 8:48 PM CDT) GLUCOSE POC 124(H) 65 - 109 mg/dL INTERFACE SYSTEM 01/07/2006 8:48 PM CDT us José Fine MD POINT OF CARE TESTING Final Result Performing Organization Address [facility] Phone Number INTERFACE SYSTEM Refer to clinic/hospital department * (ABNORMAL) POC GLUCOSE (01/07/2006 4:51 PM CDT) GLUCOSE POC 121(H) 65 - 109 mg/dL INTERFACE SYSTEM 01/07/2006 4:51 PM CDT us José Fine MD POINT OF CARE TESTING Final Result Performing Organization Address [facility] Phone Number INTERFACE SYSTEM Refer to clinic/hospital department * (ABNORMAL) POC GLUCOSE (01/07/2006 11:16 AM CDT) GLUCOSE POC 119(H) 65 - 109 mg/dL INTERFACE SYSTEM 01/07/2006 11:1 6 AM CDT us José Fine MD POINT OF CARE TESTING Final Result Performing Organization Address [facility] de Phone Number INTERFACE SYSTEM Refer to clinic/hospital department * (ABNORMAL) POC GLUCOSE (01/07/2006 6:24 AM CDT) GLUCOSE POC 114(H) 65 - 109 mg/dL INTERFACE SYSTEM 01/07/2006 6:24 AM CDT us José Fine MD POINT OF CARE TESTING Final Result Performing Organization Address [facility] de Phone Number INTERFACE SYSTEM [...] ORDERABLES Final Resu lt Performing Organization Address [facility] de Phone Number INTERFACE SYSTEM [...] ORDERABLES Final Resu lt Performing Organization Address [facility] de Phone Number INTERFACE SYSTEM Refer to clinic/hospital department * PHOSPHORUS (01/07/2006 5:30 AM CDT) PHOSPHORUS 3.1 2.5 - 4.5 mg/dL INTERFACE SYSTEM 01/07/2006 5:30 AM CDT Terry Cole MD CHEMISTRY ORDERABLES Final Resul t Performing Organization Address [facility] Phone Number INTERFACE SYSTEM Refer to clinic/hospital department * MAGNESIUM LEVEL (01/07/2006 5:30 AM CDT) MAGNESIUM 2.3 1.5 - 2.5 mg/dL INTERFACE SYSTEM 01/07/2006 5:30 AM CDT Terry Cole MD CHEMISTRY ORDERABLES Final Resul t Performing Organization Address [facility] Phone Number INTERFACE SYSTEM Refer [...] ORDERABLES Final Resul t Performing Organization Address [facility] de Phone Number INTERFACE SYSTEM Refer to clinic/hospital department * (ABNORMAL) POC GLUCOSE (01/07/2006 12:49 AM CDT) GLUCOSE POC 114(H) 65 - 109 mg/dL INTERFACE SYSTEM 01/07/2006 12:4 9 AM CDT us José Fine MD POINT OF CARE TESTING Final Result Performing Organization Address [facility] Co de Phone Number INTERFACE SYSTEM Refer to clinic/hospital department * (ABNORMAL) POC GLUCOSE (01/06/2006 5:40 PM CDT) COMMENT, GLU POC Notified RN INTERFACE SYSTEM GLUCOSE POC 128(H) 65 - 109 mg/dL INTERFACE SYSTEM 01/06/2006 5:40 PM CDT us José Fine MD POINT OF CARE TESTING Final Result Performing Organization Address [facility] Phone Number INTERFACE SYSTEM Refer to clinic/hospital department * (ABNORMAL) POC GLUCOSE (01/06/2006 11:43 AM CDT) COMMENT, GLU POC Notified RN INTERFACE SYSTEM GLUCOSE POC 120(H) 65 - 109 mg/dL INTERFACE SYSTEM 01/06/2006 11:4 3 AM CDT us José Fine MD POINT OF CARE TESTING Final Result Performing Organization Address [facility] de Phone Number INTERFACE SYSTEM Refer to clinic/hospital department * (ABNORMAL) POC GLUCOSE (01/06/2006 5:48 AM CDT) GLUCOSE POC 120(H) 65 - 109 mg/dL INTERFACE SYSTEM 01/06/2006 5:48 AM CDT us José Fine MD POINT OF CARE TESTING Final Result Performing Organization Address [facility] Co de Phone Number INTERFACE SYSTEM [...] ORDERABLES Final Resu lt Performing Organization Address [facility]/ZIP Co de Phone Number INTERFACE SYSTEM [...] ORDERABLES Final Resul t Performing Organization Address [facility] de Phone Number INTERFACE SYSTEM [...] ORDERABLES Final Resul t Performing Organization Address [facility]/ZIP Co de Phone Number INTERFACE SYSTEM Refer to clinic/hospital department * (ABNORMAL) POC GLUCOSE (01/06/2006 1:00 AM CDT) GLUCOSE POC 142(H) 65 - 109 mg/dL INTERFACE SYSTEM 01/06/2006 1:00 AM CDT José Fine MD POINT OF CARE TESTING Final Result Performing Organization Address [facility] Phone Number INTERFACE SYSTEM Refer to clinic/hospital department * (ABNORMAL) POC GLUCOSE (01/05/2006 5:49 PM CDT) GLUCOSE POC 137(H) 65 - 109 mg/dL INTERFACE SYSTEM 01/05/2006 5:49 PM CDT José Fine MD POINT OF CARE TESTING Final Result Performing Organization Address [facility] Phone Number INTERFACE SYSTEM Refer to clinic/hospital department * (ABNORMAL) POC GLUCOSE (01/05/2006 11:57 AM CDT) GLUCOSE POC 133(H) 65 - 109 mg/dL INTERFACE SYSTEM 01/05/2006 11:5 7 AM CDT José Fine MD POINT OF CARE TESTING Final Result Performing Organization Address [facility] Phone Number INTERFACE SYSTEM Refer to clinic/hospital department * (ABNORMAL) POC GLUCOSE (01/05/2006 5:59 AM CDT) GLUCOSE POC 142(H) 65 - 109 mg/dL INTERFACE SYSTEM 01/05/2006 5:59 AM CDT José Fine MD POINT OF CARE TESTING Final Result Performing Organization Address [facility] Phone Number INTERFACE SYSTEM Refer [...] K/uL INTERFACE SYSTEM 01/05/2006 4:00 AM CDT [facility] [employer] HEMATOLOGY ORDERABLES Final Result Performing Organization Address [facility] Phone Number INTERFACE SYSTEM Refer [...] fL INTERFACE SYSTEM 01/05/2006 4:00 AM CDT Manga Corta HEMATOLOGY ORDERABLES Final Result Performing Organization Address [facility] Phone Number INTERFACE SYSTEM Refer [...] patients with mechanical heart valves or post HI. Pediatric (12 years and under): 1.5 - [...] for unfractionated heparin 01/05/2006 4:00 AM CDT [employer] HEMATOLOGY ORDERABLES Final Result Performing Organization Address [facility] Phone Number INTERFACE SYSTEM Refer to clinic/hospital department * PHOSPHORUS (01/05/2006 4:00 AM CDT) PHOSPHORUS 2.9 2.5 - 4.5 mg/dL INTERFACE SYSTEM 01/05/2006 4:00 AM CDT Luis Eduardo [employer] Productions[employer]t CHEMISTRY ORDERABLES Final R esult Performing Organization Address [facility] Phone Number INTERFACE SYSTEM Refer to clinic/hospital department * MAGNESIUM LEVEL (01/05/2006 4:00 AM CDT) MAGNESIUM 2.2 1.5 - 2.5 mg/dL INTERFACE SYSTEM 01/05/2006 4:00 AM CDT [employer] CHEMISTRY ORDERABLES Final R esult Performing Organization Address [facility] Phone Number INTERFACE SYSTEM Refer [...] ORDERABLES Final R esult Performing Organization Address [facility] Phone Number INTERFACE SYSTEM Refer to clinic/hospital department * (ABNORMAL) POC GLUCOSE (01/04/2006 11:41 PM CDT) GLUCOSE POC 140(H) 65 - 109 mg/dL INTERFACE SYSTEM 01/04/2006 11:4 1 PM CDT us José Fine MD POINT OF CARE TESTING Final Result Performing Organization Address [facility] Phone Number INTERFACE SYSTEM Refer to clinic/hospital department * (ABNORMAL) POC GLUCOSE (01/04/2006 5:43 PM CDT) GLUCOSE POC 156(H) 65 - 109 mg/dL INTERFACE SYSTEM 01/04/2006 5:43 PM CDT us José Fine MD POINT OF CARE TESTING Final Result Performing Organization Address [facility] Phone Number INTERFACE SYSTEM Refer to clinic/hospital department * (ABNORMAL) POC GLUCOSE (01/04/2006 11:37 AM CDT) GLUCOSE POC 175(H) 65 - 109 mg/dL INTERFACE SYSTEM 01/04/2006 11:3 7 AM CDT us José Fine MD POINT OF CARE TESTING Final Result Performing Organization Address [facility] Phone Number INTERFACE SYSTEM Refer to clinic/hospital department * (ABNORMAL) POC GLUCOSE (01/04/2006 6:11 AM CDT) GLUCOSE POC 183(H) 65 - 109 mg/dL INTERFACE SYSTEM 01/04/2006 6:11 AM CDT José Fine MD POINT OF CARE TESTING Final Result Performing Organization Address [facility] Phone Number INTERFACE SYSTEM Refer [...] ORDERABLES F inal Result Performing Organization Address [facility] Phone Number INTERFACE SYSTEM Refer [...] patients with mechanical heart valves or post HI. Pediatric (12 years and under): 1.5 - [...] ORDERABLES F inal Result Performing Organization Address [facility] Phone Number INTERFACE SYSTEM Refer to clinic/hospital department * PHOSPHORUS (01/04/2006 4:20 AM CDT) PHOSPHORUS 2.5 2.5 - 4.5 mg/dL INTERFACE SYSTEM 01/04/2006 4:20 AM CDT us Rayray Wilcox MD CHEMISTRY ORDERABLES Fi nal Result Performing Organization Address [facility] Phone Number INTERFACE SYSTEM Refer to clinic/hospital department * MAGNESIUM LEVEL (01/04/2006 4:20 AM CDT) MAGNESIUM 2.0 1.5 - 2.5 mg/dL INTERFACE SYSTEM 01/04/2006 4:20 AM CDT Rayray Wilcox MD CHEMISTRY ORDERABLES Fi nal Result Performing Organization Address [facility] Phone Number INTERFACE SYSTEM [...] INTERFACE SYSTEM 01/04/2006 4:20 AM CDT Madi Ortiz MD CHEMISTRY ORDERABLES Final Re sult Performing Organization Address [facility]/ZIP Co de Phone Number INTERFACE SYSTEM Refer to clinic/hospital department * (ABNORMAL) POC GLUCOSE (01/04/2006 12:25 AM CDT) GLUCOSE POC 188(H) 65 - 109 mg/dL INTERFACE SYSTEM 01/04/2006 12:2 5 AM CDT José Fine MD POINT OF CARE TESTING Final Result Performing Organization Address [facility] de Phone Number INTERFACE SYSTEM Refer to clinic/hospital department * (ABNORMAL) POC GLUCOSE (01/03/2006 5:25 PM CDT) GLUCOSE POC 177(H) 65 - 109 mg/dL INTERFACE SYSTEM 01/03/2006 5:25 PM CDT José Fine MD POINT OF CARE TESTING Final Result Performing Organization Address [facility] de Phone Number INTERFACE SYSTEM Refer to clinic/hospital department * (ABNORMAL) POC GLUCOSE (01/03/2006 11:34 AM CDT) GLUCOSE POC 148(H) 65 - 109 mg/dL INTERFACE SYSTEM 01/03/2006 11:3 4 AM CDT José Fine MD POINT OF CARE TESTING Final Result Performing Organization Address [facility] de Phone Number INTERFACE SYSTEM [...] ORDERABLES F inal Result Performing Organization Address [facility] Phone Number INTERFACE SYSTEM Refer [...] ORDERABLES F inal Result Performing Organization Address [facility] Phone Number INTERFACE SYSTEM Refer [...] ORDERABLES F inal Result Performing Organization Address [facility] Phone Number INTERFACE SYSTEM Refer [...] patients with mechanical heart valves or post HI. Pediatric (12 years and under): 1.5 - [...] ORDERABLES F inal Result Performing Organization Address [facility] Number INTERFACE SYSTEM Refer to clinic/hospital department * PHOSPHORUS (01/03/2006 10:46 AM CDT) PHOSPHORUS 3.3 2.5 - 4.5 mg/dL INTERFACE SYSTEM 01/03/2006 10:4 6 AM CDT Rayray Wilcox MD CHEMISTRY ORDERABLES Fi nal Result Performing Organization Address [facility] Phone Number INTERFACE SYSTEM Refer to clinic/hospital department * MAGNESIUM LEVEL (01/03/2006 10:46 AM CDT) MAGNESIUM 1.8 1.5 - 2.5 mg/dL INTERFACE SYSTEM 01/03/2006 10:4 6 AM CDT Rayray Wilcox MD CHEMISTRY ORDERABLES Fi nal Result Performing Organization Address [facility] Phone Number INTERFACE SYSTEM Refer [...] CHEMISTRY ORDERABLES nal Result Performing Organization Address [facility] Phone Number INTERFACE SYSTEM Refer [...] patients with mechanical heart valves or post HI. Pediatric (12 years and under): 1.5 - [...] drugs of abuse are available on the [facility] Intranet at: [email or web address] Select: Drugs of Abuse ? [facility] To inquire about any potential cross-reactivity [...] URINE ORDERABLES Final Result Performing Organization Address City/[facility]/ZIP Co de Phone Number INTERFACE SYSTEM [...]
--- OUTSIDE RECORDS SUMMARY | 2024-10-07 11:07 | XMS_ITS | Encounter Summary ---
Author Organization [facility] Address 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 Unavailable Primary Care Provider Unavailabl e Encounter Details Date Type Department Care Team (Late st Contact Info) Description 01/11/2006 Outpatient Historical [facility] Trauma and General Surgery [address] [facility] [address] [id number] [place] [address] [place] [address] Social History Tobacco Use Types Packs/Day Years Used Date Smoking Tobacco: Never Assessed Sex and Gender Information Value Date Recorded Sex Assigned at Not on file 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
--- OUTSIDE RECORDS SUMMARY | 2024-10-07 11:07 | XMS_ITS | Encounter Summary ---
Author Organization [facility] Address [address] [place] [address] Care Team Providers Care Build Manager Name Role Phone Unavailable Primary Care Provider Unavailabl e Encounter Details Date Type Department Care Team (Late st Contact Info) Description 03/14/2006 Outpatient Historical [facility] Adult Hospitalists [facility] [address] [place] [address] Devan Agrawal MD [address] [facility] 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
[2024-10-07 11:08] LABS: Basophils Percent Auto 0.3 % (0.2-1.2); Eosinophils Absolute Auto 0.2 K/mm3 (0-0.3); Eosinophils Percent Auto 2.2 % (0-4.4); Hematocrit 38.4 % (42.0-52.0); Hemoglobin 11.7 g/dL (14.0-18.0); Immature Granulocyte Absolute 0.04 K/mm3 (0.00-0.031); Immature Granulocyte Percent A 0.6 % (0-0.5); Lymphocytes Absolute Auto 0.66 K/mm3 (0.9-3.2); Lymphocytes Percent Auto 9.8 % (18.3-44.2); Mean Corpuscular HGB Conc 30.5 g/dl (32-36); Mean Corpuscular Hemoglobin 27.9 pg (26-34); Mean Corpuscular Volume 91.4 fl (80-100); Mean Platelet Volume 10.3 fl (7.4-10.4); Monocytes Absolute Auto 0.6 K/mm3 (0.1-0.6); Monocytes Percent Auto 8.3 % (2.6-8.5); Neutrophils Absolute Auto 5.3 K/mm3 (1.3-6.7); Neutrophils Percent Auto 78.8 % (45.5-73.1); Platelet Count Result 221 k/mm3 (150-375); Red Cell Distribution Width 15.8 % (11.5-14.5); White Blood Count 6.8 K/mm3 (4.5-10.0)
[2024-10-07 11:12] LABS: Add Urine Microscopic? YES; Appearance Urine Clear (Clear); Bacteria Urine 2+ /hpf; Bilirubin Urine Negative (Negative); Blood Urine Negative (Negative); Color Urine Yellow (Yellow); Glucose Urine UA Negative (Negative); Ketones Urine Negative (Negative); Leukocyte Esterase Ur 2+ LEU/UL (Negative); Nitrate Urine Negative (Negative); Non Pathogenic Casts 0-2; Protein Urine Negative (Negative); RBC Urine 0-2 /hpf (0-2); Specific Grav Ur 1.011 (1.001-1.035); Squamous Epithelial Cell Urine None Seen /hpf (Few); Urobilinogen Urine 0.2 mg/dL (<2.0); WBC Urine 51-100 /hpf (0-3)
[2024-10-07 11:22] LABS: Alanine Aminotransferase 16 U/L (6-50); Albumin Level 3.7 g/dL (3.5-5.1); Alkaline Phosphatase 113 U/L (38-126); Anion Gap 9 mmol/L (4-12); Aspartate Amino Transferase 23 U/L (17-59); Bilirubin,Total 0.6 mg/dL (0.2-1.3); Blood Urea Nitrogen 19 mg/dL (9-20); Calcium 8.5 mg/dL (8.4-10.2); Carbon Dioxide 30 mmol/L (22-30); Chloride 103 mmol/L (98-107); Estimated CRCL calculation 81 ml/min; Estimated Glomerular Filt Rate > 60; Glucose 99 mg/dL (65-110); Potassium 3.4 mmol/L (3.4-5.0); Sodium 142 mmol/L (137-145)
[2024-10-07 11:45] LABS: INR 1.1; Prothrombin Time 14.3 Seconds (11.1-14.7)
[2024-10-07 11:46] LABS: Partial Thromboplastin Time 37.8 Seconds (22.3-36.8)
[2024-10-07] MEDS: levoFLOXacin 750 MG/D5W 150 ML 750 MG/150 ML BAG 100 MG IVPB (13:24)
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
[2024-10-07] MEDS: SODIUM CHLORIDE 0.9% IV 1,000 ML 100 ML IV CONT (16:19)
--- NOTE | 2024-10-07 18:50 | ADMGEN ---
This patient, Tai Amado, was admitted to Medical Room 245-. Patient/family oriented to hospital policies and general routines including ID bracelet, bed and alarms, visiting hours, pain management, procedures, bathroom and other care routines, personal items, smoking policy, room service/diet, and visiting hours. Information on how to activate the Rapid Response Team has been discussed. Patient/Family are encouraged to report perceived risks to care and to ask questions if they do not understand what they are told or what they should do.
[2024-10-07] MEDS: METOPROLOL TARTRATE 25 MG TABLET PO (21:32)
[2024-10-07] MEDS: ATORVASTATIN 40 MG TABLET 80 MG PO (21:32)
[2024-10-07] MEDS: MELATONIN 3 MG TABLET PO (21:32)
[2024-10-07] MEDS: PREGABALIN (*CRX) 50 MG CAPSULE 100 MG PO (21:32)
[2024-10-07] MEDS: PANTOPRAZOLE 40 MG TABLET PO (21:32)
[2024-10-07] MEDS: PHENAZOPYRIDINE HCL 100 MG TABLET 200 MG PO (23:38)
[2024-10-08] VITALS (7 sets, daily range): BP systolic 107–190; BP diastolic 48–80; PULSE 66–73; RESP 16–18; TEMP 36.3–36.5; O2SAT 95–97
[2024-10-08] MEDS: SODIUM CHLORIDE 0.9% IV 1,000 ML 100 ML IV CONT ×3 (02:25→23:00)
[2024-10-08] MEDS: hydrALAZINE HCL 50 MG TABLET PO (03:26)
[2024-10-08 05:47] LABS: Basophils Percent Auto 0.4 % (0.2-1.2); Eosinophils Absolute Auto 0.2 K/mm3 (0-0.3); Eosinophils Percent Auto 3.3 % (0-4.4); Hematocrit 37.6 % (42.0-52.0); Hemoglobin 11.5 g/dL (14.0-18.0); Immature Granulocyte Absolute 0.02 K/mm3 (0.00-0.031); Immature Granulocyte Percent A 0.3 % (0-0.5); Lymphocytes Absolute Auto 0.69 K/mm3 (0.9-3.2); Lymphocytes Percent Auto 10.3 % (18.3-44.2); Mean Corpuscular HGB Conc 30.6 g/dl (32-36); Mean Corpuscular Volume 91.7 fl (80-100); Mean Platelet Volume 10.5 fl (7.4-10.4); Monocytes Absolute Auto 0.7 K/mm3 (0.1-0.6); Monocytes Percent Auto 9.8 % (2.6-8.5); Neutrophils Absolute Auto 5.1 K/mm3 (1.3-6.7); Neutrophils Percent Auto 75.9 % (45.5-73.1); Platelet Count Result 232 k/mm3 (150-375); Red Cell Distribution Width 15.6 % (11.5-14.5); White Blood Count 6.7 K/mm3 (4.5-10.0)
[2024-10-08 05:53] LABS: Anion Gap 7 mmol/L (4-12); Blood Urea Nitrogen 18 mg/dL (9-20); Calcium 8.3 mg/dL (8.4-10.2); Carbon Dioxide 30 mmol/L (22-30); Chloride 103 mmol/L (98-107); Estimated CRCL calculation 79 ml/min; Estimated Glomerular Filt Rate > 60; Glucose 95 mg/dL (65-110); Potassium 3.2 mmol/L (3.4-5.0); Sodium 140 mmol/L (137-145)
--- NOTE | 2024-10-08 06:40 | PM.IMPN ---
Progress Note: A&P Assessment and Plan (1) AMS (altered mental status): Qualifiers: Altered mental status type: unspecified Qualified Code(s): R41.82 - Altered mental status, unspecified Code(s): R41.82 - Altered mental status, unspecified Status: Acute Assessment and Plan: Prior to admission he felt as though he could hear people talking to him but was unable to answer or had difficulty answering. He states that this has completely resolved since admission. Patient remains alert and oriented x4. Likely metabolic encephalopathy secondary to UTI, however possibly a CVA or seizure disorder though unlikely as patient has responded to antibiotics Head CT: Old left occipital lobe infarct. No acute intracranial process. MRI ordered, unsure if able to obtain given baclofen pump and nica placement Monitor (2) Urinary tract infection associated with catheterization of urinary tract: Code(s): T83.511A - Infection and inflammatory reaction due to indwelling urethral catheter, initial encounter; N39.0 - Urinary tract infection, site not specified Status: Acute Assessment and Plan: - UA: clear appearance with 2+ leukocytes, 51-100 WBC, 2+ bacteria, and no squamous cells noted - UC obtained on 10/07/2024: pending - previous micro reviewed 08/11/24: Providencia stuartii with resistance to cefazolin, gentamicin, and macrobid Several episodes throughout 2023: Ecoli ESBL and pseudomonas aeruginosa - started on Levaquin on 10/07, transitioned to meropenem on 10/08 (3) Hypertension: Code(s): I10 - Essential (primary) hypertension Status: Acute Assessment and Plan: Chronic Continue home medications: metoprolol 25 mg BID and hydralazine 50 mg Q8H PRN for BP > 160 Blood pressures reviewed, continue to monitor (4) Anemia: Code(s): D64.9 - Anemia, unspecified Status: Acute Assessment and Plan: Chronic, appears at baseline No signs of active bleeding Continue to monitor (5) Quadriplegia, C5-C7, incomplete: Code(s): G82.54 - Quadriplegia, C5-C7 incomplete Status: Acute Time Spent With Patient Time with patient: 25 - 35 minutes Subjective Date/time seen: 10/08/24 06:40 Interval history: 74-year-old male with past medical history of 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 Patient is pleasant lying comfortably in bed. He notes that yesterday he felt as though he could hear people talking to him but was unable to answer or had difficulty answering. He states that this has completely resolved since admission. Patient remains alert and oriented x4. He denies any increased weakness/numbness compared to normal baseline. He has no complaints denying chest pain, palpitations, shortness of breath, nausea/vomiting, and abdominal pain. He states that his catheter was changed on Wednesday and is typically changed every 4 weeks. Review of Systems Review of Systems: All systems reviewed & are unremarkable except as noted in HPI and below Exam Narrative: AF HR 71 RR 18 SpO2 95 BP 147/56 General: male in no acute respiratory distress who is nontoxic appearing, lying semi recumbent in bed. HEENT: Normocephalic. Atraumatic. Extraocular movement intact. Sclera clear and anicteric. No facial asymmetry. Chest: Lungs are clear to auscultation bilaterally. No wheezes or crackles. CV: Heart was regular rate and rhythm. S1/S2. No murmurs, gallops, or rubs. Abd: Abdomen was soft. Nontender. Nondistended. Positive bowel sounds. No organomegaly or masses. Ext: No clubbing, cyanosis, or edema. DP pulses bilaterally. Neuro: Patient is alert and oriented x4. Cranial nerves 2-12 are intact. Speech is clear. Contractures to bilateral hands. Able to move both upper extremities. Objective Data Vital Signs Vital Signs: Vital Signs - 24 hr 10/07/24 10:47 10/07/24 10:54 10/07/24 11:01 Temperature 97.7 F Pulse Rate 62 61 62 Respiratory Rate 20 12 Blood Pressure 154/77 H 138/56 L Pulse Oximetry 97 98 Oxygen Delivery Autopap 10/07/24 11:16 10/07/24 11:48 10/07/24 12:12 Temperature Pulse Rate 62 63 Respiratory Rate 16 17 Blood Pressure 172/63 H 165/75 H Pulse Oximetry 99 98 Oxygen Delivery Room Air 10/07/24 12:16 10/07/24 12:31 10/07/24 13:25 Temperature Pulse Rate 57 L 55 L 66 Respiratory Rate 10 L 13 22 H Blood Pressure 178/63 H 155/53 H 128/65 Pulse Oximetry 98 98 97 Oxygen Delivery 10/07/24 13:26 10/07/24 14:01 10/07/24 14:46 Temperature Pulse Rate 65 58 L 61 Respiratory Rate 17 9 L 17 Blood Pressure 128/65 149/74 H 173/67 H Pulse Oximetry 96 98 95 Oxygen Delivery 10/07/24 15:31 10/07/24 17:10 10/07/24 20:00 Temperature Pulse Rate 61 76 76 Respiratory Rate 10 L 14 14 Blood Pressure 127/58 L 136/84 Pulse Oximetry 95 97 97 Oxygen Delivery Room Air 10/07/24 21:32 10/07/24 22:00 10/08/24 02:50 Temperature 97.6 F Pulse Rate 70 68 67 Respiratory Rate 18 16 Blood Pressure 168/63 H 190/80 H Pulse Oximetry 98 97 Oxygen Delivery 10/08/24 06:00 Temperature 97.4 F L Pulse Rate 73 Respiratory Rate 18 Blood Pressure 147/56 H Pulse Oximetry 95 Oxygen Delivery Intake/Output Intake/Output: Intake & Output 10/05/24 10/06/24 10/07/24 10/08/24 23:59 23:59 23:59 23:59 Intake Total 150 1000 Output Total 2350 Balance 150 -1350 Meds/Results Medications: Active Medications Generic Name Dose Route Start Last Admin Trade Name Freq PRN Reason Stop Dose Admin Acetaminophen 650 mg 10/07/24 15:47 Acetaminophen 325 Mg Tablet PO Q4H PRN Mild Pain (1-3) or Fever Atorvastatin Calcium 80 mg 10/07/24 21:00 10/07/24 21:32 Atorvastatin 40 Mg Tablet PO 80 mg HS NASRIN Administration Bisacodyl 10 mg 10/07/24 20:16 Bisacodyl 10 Mg Suppository RECTAL DAILY PRN constipation Enoxaparin Sodium 40 mg 10/08/24 09:00 Enoxaparin 40 Mg/0.4 Ml Syringe SUB-Q DAILY NASRIN Hydralazine HCl 50 mg 10/08/24 03:11 10/08/24 03:26 Hydralazine Hcl 50 Mg Tablet PO 50 mg Q8H PRN Administration SBP >140 Sodium Chloride 1,000 mls @ 100 mls/hr 10/07/24 15:50 10/08/24 02:25 Normal Saline Iv IV CONT 100 mls/hr .Q10H NASRIN Administration Levofloxacin/Dextrose 750 mg in 150 mls @ 100 mls/hr 10/08/24 13:00 Levaquin 750 Mg/D5w 150 Ml IVPB Q24H NASRIN Loratadine 10 mg 10/08/24 09:00 Loratadine 10 Mg Tablet PO DAILY NASRIN Melatonin 3 mg 10/07/24 21:00 10/07/24 21:32 Melatonin 3 Mg Tablet PO 3 mg HS NASRIN Administration Metoprolol Tartrate 25 mg 10/07/24 21:00 10/07/24 21:32 Metoprolol Tartrate 25 Mg Tablet PO 25 mg Q12H NASRIN Administration Pantoprazole Sodium 40 mg 10/07/24 21:00 10/07/24 21:32 Pantoprazole 40 Mg Tablet PO 40 mg Q12H NASRIN Administration Phenazopyridine HCl 200 mg 10/07/24 22:25 10/07/24 23:38 Phenazopyridine Hcl 100 Mg Tablet PO 200 mg TIDWM NASRIN Administration Polyethylene Glycol 17 gm 10/07/24 20:16 Polyethylene Glycol 3350 17 Gm Powd.Pack PO DAILY PRN Constipation Pregabalin 100 mg 10/07/24 20:25 10/07/24 21:32 Pregabalin (*Crx) 50 Mg Capsule PO 100 mg BID NASRIN Administration Senna 8.6 mg 10/07/24 20:21 Sennosides 8.6 Mg Tablet PO BID PRN constipation Radiology Results: ITS Impressions Head CT 10/07/24 11:36 IMPRESSION: 1. Old left occipital lobe infarct. No acute intracranial process. Chest X-Ray 10/07/24 13:37 IMPRESSION: 1. Decreased right lung volume with small right pleural effusion and associated right basilar atelectasis and/or pneumonia. 2. Cardiomegaly. Labs Labs: Laboratory Results - last 24 hr 10/07/24 10/07/24 10/08/24 10:57 11:01 04:54 WBC 6.8 6.7 RBC 4.20 L 4.10 L Hgb 11.7 L 11.5 L Hct 38.4 L 37.6 L MCV 91.4 91.7 MCH 27.9 28.0 MCHC 30.5 L 30.6 L RDW 15.8 H 15.6 H Plt Count 221 232 MPV 10.3 10.5 H Immature Gran % (Auto) 0.6 H 0.3 Neut % (Auto) 78.8 H 75.9 H Lymph % (Auto) 9.8 L 10.3 L [place] % (Auto) 8.3 9.8 H Eos % (Auto) 2.2 3.3 Baso % (Auto) 0.3 0.4 Lymph # (Auto) 0.66 L 0.69 L [place] # (Auto) 0.6 0.7 H Eos # (Auto) 0.2 0.2 Baso # (Auto) 0.0 0.0 Abs Immat Gran (auto) 0.04 H 0.02 Absolute Neuts (auto) 5.3 5.1 Absolute Nucleated RBC 0.000 0.000 Nucleated RBC % 0.0 0.0 PT 14.3 INR 1.1 APTT 37.8 H Sodium 142 140 Potassium 3.4 3.2 L Chloride 103 103 Carbon Dioxide 30 30 Anion Gap 9 7 BUN 19 D 18 Creatinine 0.73 0.80 Estim Creat Clear Calc 81 79 Estimated GFR > 60 > 60 Glucose 99 95 POC Capillary Glucose 88 Calcium 8.5 8.3 L Total Bilirubin 0.6 AST 23 ALT 16 Alkaline Phosphatase 113 Total Protein 7.0 Albumin 3.7 Urine Color Yellow Urine Appearance Clear Urine pH 7.0 Ur Specific [place] 1.011 Urine Protein Negative Urine Glucose (UA) Negative Urine Ketones Negative Ur Blood (Man) Negative Urine Nitrate Negative Urine Bilirubin Negative Urine Urobilinogen 0.2 Leukocyte Esterase Rfl 2+ H Urine RBC 0-2 Urine WBC 51-100 H Ur Squamous Epith Cells None seen Urine Bacteria 2+ H Urine Casts 0-2 Quality VTE Prophylaxis VTE prophylaxis: pharmacologic ordered
[2024-10-08] MEDS: MEROPENEM 1 GM/NS 100 ML 1 GM/100 ML BAG IVPB ×3 (07:57→20:40)
[2024-10-08] MEDS: ENOXAPARIN 40 MG/0.4 ML SYRINGE SUB-Q (08:00)
[2024-10-08] MEDS: PHENAZOPYRIDINE HCL 100 MG TABLET 200 MG PO ×3 (08:01→17:17)
[2024-10-08] MEDS: METOPROLOL TARTRATE 25 MG TABLET PO ×2 (08:01→20:39)
[2024-10-08] MEDS: LORATADINE 10 MG TABLET PO (08:01)
[2024-10-08] MEDS: PANTOPRAZOLE 40 MG TABLET PO ×2 (08:03→20:40)
[2024-10-08] MEDS: PREGABALIN (*CRX) 50 MG CAPSULE 100 MG PO ×2 (08:03→17:17)
[2024-10-08] MEDS: IBUPROFEN 400 MG TABLET PO (09:46)
[2024-10-08] MEDS: ATORVASTATIN 40 MG TABLET 80 MG PO (20:40)
[2024-10-08] MEDS: MELATONIN 3 MG TABLET PO (20:40)
[2024-10-09] MEDS: MEROPENEM 1 GM/NS 100 ML 1 GM/100 ML BAG IVPB (05:00)
[2024-10-09 05:10] VITALS: BP 107/45; PULSE 59; RESP 17; TEMP 36.7; O2SAT 93
[2024-10-09 05:40] LABS: Hemoglobin 10.6 g/dL (14.0-18.0); Mean Corpuscular HGB Conc 29.4 g/dl (32-36); Mean Corpuscular Hemoglobin 27.6 pg (26-34); Mean Corpuscular Volume 93.8 fl (80-100); Mean Platelet Volume 10.5 fl (7.4-10.4); Platelet Count Result 213 k/mm3 (150-375); Red Blood Count 3.84 M/mm3 (4.6-6.20); Red Cell Distribution Width 16.1 % (11.5-14.5); White Blood Count 6.4 K/mm3 (4.5-10.0)
[2024-10-09 05:45] LABS: Alanine Aminotransferase 13 U/L (6-50); Albumin Level 3.2 g/dL (3.5-5.1); Alkaline Phosphatase 93 U/L (38-126); Anion Gap 7 mmol/L (4-12); Aspartate Amino Transferase 21 U/L (17-59); Bilirubin,Total 0.5 mg/dL (0.2-1.3); Blood Urea Nitrogen 17 mg/dL (9-20); Calcium 7.9 mg/dL (8.4-10.2); Carbon Dioxide 28 mmol/L (22-30); Chloride 108 mmol/L (98-107); Estimated CRCL calculation 68 ml/min; Estimated Glomerular Filt Rate > 60; Glucose 98 mg/dL (65-110); Potassium 3.2 mmol/L (3.4-5.0); Sodium 143 mmol/L (137-145)
--- NOTE | 2024-10-09 07:17 | PM.IMPN ---
Progress Note: A&P Assessment and Plan (1) AMS (altered mental status): Qualifiers: Altered mental status type: unspecified Qualified Code(s): R41.82 - Altered mental status, unspecified Code(s): R41.82 - Altered mental status, unspecified Status: Acute Assessment and Plan: Prior to admission he felt as though he could hear people talking to him but was unable to answer or had difficulty answering. Returned to AOx4 on admission. Likely metabolic encephalopathy secondary to UTI, however possibly a CVA or seizure disorder or related to baclofen pump Patient follows with neurosurgery at [facility] 10/08 patient was AOx4, following commands. On assessment today AOx0. Not following commands. Noted left nystagmus. Sudden change in mental status not likely to be UTI alone. Noted left nystagmus. Returned to patients room and he is easily arousable, AOx1-2. Head CT: Old left occipital lobe infarct. No acute intracranial process. Head/neck CTA 07/2024: No significant stenosis Patient has history of CVA and significant risk factors for recurrence though he is only on high dose statin, started on ASA MRI was ordered however unable to obtain given baclofen pump and nica placement EEG ordered to further evaluate seizure concern EEG did not show any spiking or focal slowing on the left versus right side nevertheless this would not conclusively rule out Neurochecks q4H Started on keppra, given 1500 mg IV and starting 750 mg BID this afternoon. Transition to PO when AMS improves. Neurology consulted (2) Urinary tract infection associated with catheterization of urinary tract: Code(s): T83.511A - Infection and inflammatory reaction due to indwelling urethral catheter, initial encounter; N39.0 - Urinary tract infection, site not specified Status: Acute Assessment and Plan: - UA: clear appearance with 2+ leukocytes, 51-100 WBC, 2+ bacteria, and no squamous cells noted - UC obtained on 10/07/2024: pseudomonas aeruginosa pansensitive - previous micro reviewed 08/11/24: Providencia stuartii with resistance to cefazolin, gentamicin, and macrobid Several episodes throughout 2023: Ecoli ESBL and pseudomonas aeruginosa - started on Levaquin on 10/07, transitioned to meropenem on 10/08. Transitioned to IV levaquin 10/09, change to PO when AMS improves. (3) Hypertension: Code(s): I10 - Essential (primary) hypertension Status: Acute Assessment and Plan: Chronic Continue home medications: metoprolol 25 mg BID and hydralazine 50 mg Q8H PRN for BP > 160 AMS unable to take PO, started on IV hydralazine 10 mg Q8H PRN Blood pressures reviewed, continue to monitor (4) Anemia: Code(s): D64.9 - Anemia, unspecified Status: Acute Assessment and Plan: Chronic, appears at baseline Continue iron supplementation No signs of active bleeding Continue to monitor (5) Quadriplegia, C5-C7, incomplete: Code(s): G82.54 - Quadriplegia, C5-C7 incomplete Status: Acute Time Spent With Patient Time with patient: Greater than 35 minutes Subjective Date/time seen: 10/09/24 07:17 Interval history: 74-year-old male with past medical history of 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 Patient found unresponsive to verbal stimuli on assessment with minimal response to pain. AOx0. Unable to follow commands or answer questions. Returned to patients room and he is easily arousable. Alert to self and intermittently knows he is in the hospital. He attempts to follow commands though response is slow. Asking repetitive questions. He states he does not remember this morning but does note he saw his friend who was in fact present at that time. Review of Systems Review of Systems: ROS unobtainable: Yes unobtainable due to mental status Exam Narrative: AF HR 64 RR 14 Spo2 95 BP 168/58 General: male in no acute respiratory distress who is nontoxic appearing, lying semi recumbent in bed. HEENT: Normocephalic. Atraumatic. PERRL. Extraocular movement intact. Sclera clear and anicteric. No facial asymmetry. Chest: Lungs are clear to auscultation bilaterally. CV: Heart was regular rate and rhythm. Abd: Abdomen was soft. Nontender. Nondistended. Positive bowel sounds. Ext: No clubbing, cyanosis, or edema. DP pulses bilaterally. Neuro: Patient is alert and oriented x0. Not following commands. Left nystagmus noted, improved when more alert. No upper or lower extremity movement. Objective Data Vital Signs Vital Signs: Vital Signs - 24 hr 10/08/24 08:01 10/08/24 08:01 10/08/24 09:14 Temperature Pulse Rate 71 71 Respiratory Rate 18 Blood Pressure Pulse Oximetry 95 95 Oxygen Delivery Room Air Room Air 10/08/24 13:41 10/08/24 14:00 10/08/24 20:00 Temperature 97.7 F 97.6 F Pulse Rate 66 70 67 Respiratory Rate 16 16 17 Blood Pressure 107/48 L 120/54 L 152/55 H Pulse Oximetry 97 96 97 Oxygen Delivery 10/08/24 20:00 10/09/24 05:10 Temperature 98.0 F Pulse Rate 59 L Respiratory Rate 17 Blood Pressure 107/45 L Pulse Oximetry 93 Oxygen Delivery Room Air Intake/Output Intake/Output: Intake & Output 10/06/24 10/07/24 10/08/24 10/09/24 23:59 23:59 23:59 23:59 Intake Total 150 3813.3 Output Total 2950 1300 Balance 150 863.3 -1300 Meds/Results Medications: Active Medications Generic Name Dose Route Start Last Admin Trade Name Freq PRN Reason Stop Dose Admin Acetaminophen 650 mg 10/07/24 15:47 Acetaminophen 325 Mg Tablet PO Q4H PRN Mild Pain (1-3) or Fever Atorvastatin Calcium 80 mg 10/07/24 21:00 10/08/24 20:40 Atorvastatin 40 Mg Tablet PO 80 mg HS NASRIN Administration Bisacodyl 10 mg 10/07/24 20:16 Bisacodyl 10 Mg Suppository RECTAL DAILY PRN constipation Enoxaparin Sodium 40 mg 10/08/24 09:00 10/08/24 08:00 Enoxaparin 40 Mg/0.4 Ml Syringe SUB-Q 40 mg DAILY NASRIN Administration Hydralazine HCl 50 mg 10/08/24 03:11 10/08/24 03:26 Hydralazine Hcl 50 Mg Tablet PO 50 mg Q8H PRN Administration SBP >160 Sodium Chloride 1,000 mls @ 100 mls/hr 10/07/24 15:50 10/08/24 23:00 Normal Saline Iv IV CONT 100 mls/hr .Q10H NASRIN Administration Meropenem 1 gm in 100 mls @ 200 mls/hr 10/08/24 07:10 10/09/24 05:00 IVPB 200 mls/hr Q8HR NASRIN Administration Ibuprofen 400 mg 10/08/24 09:24 10/08/24 09:46 Ibuprofen 400 Mg Tablet PO 400 mg Q6H PRN Administration Pain Rated 1-3 Loratadine 10 mg 10/08/24 09:00 10/08/24 08:01 Loratadine 10 Mg Tablet PO 10 mg DAILY NASRIN Administration Melatonin 3 mg 10/07/24 21:00 10/08/24 20:40 Melatonin 3 Mg Tablet PO 3 mg HS NASRIN Administration Metoprolol Tartrate 25 mg 10/07/24 21:00 10/08/24 20:39 Metoprolol Tartrate 25 Mg Tablet PO 25 mg Q12H NASRIN Administration Pantoprazole Sodium 40 mg 10/07/24 21:00 10/08/24 20:40 Pantoprazole 40 Mg Tablet PO 40 mg Q12H NASRIN Administration Phenazopyridine HCl 200 mg 10/07/24 22:25 10/08/24 17:17 Phenazopyridine Hcl 100 Mg Tablet PO 200 mg TIDWM NASRIN Administration Polyethylene Glycol 17 gm 10/07/24 20:16 Polyethylene Glycol 3350 17 Gm Powd.Pack PO DAILY PRN Constipation Pregabalin 100 mg 10/07/24 20:25 10/08/24 17:17 Pregabalin (*Crx) 50 Mg Capsule PO 100 mg BID NASRIN Administration Senna 8.6 mg 10/07/24 20:21 Sennosides 8.6 Mg Tablet PO BID PRN constipation Radiology Results: ITS Impressions Head CT 10/07/24 11:36 IMPRESSION: 1. Old left occipital lobe infarct. No acute intracranial process. Chest X-Ray 10/08/24 08:27 IMPRESSION: Right basilar atelectasis versus pneumonia with no change from previous examination. Minimal right pleural effusion. Labs Labs: Laboratory Results - last 24 hr 10/09/24 04:57 WBC 6.4 RBC 3.84 L Hgb 10.6 L Hct 36.0 L MCV 93.8 MCH 27.6 MCHC 29.4 L RDW 16.1 H Plt Count 213 MPV 10.5 H Sodium 143 Potassium 3.2 L Chloride 108 H Carbon Dioxide 28 Anion Gap 7 BUN 17 Creatinine 0.94 Estim Creat Clear Calc 68 Estimated GFR > 60 Glucose 98 Calcium 7.9 L Total Bilirubin 0.5 AST 21 ALT 13 Alkaline Phosphatase 93 Total Protein 6.0 L Albumin 3.2 L Quality VTE Prophylaxis VTE prophylaxis: pharmacologic ordered
[2024-10-09] MEDS: ENOXAPARIN 40 MG/0.4 ML SYRINGE SUB-Q (09:02)
[2024-10-09] MEDS: SODIUM CHLORIDE 0.9% IV 1,000 ML 100 ML IV CONT ×2 (09:04→20:10)
[2024-10-09 11:25] VITALS: BP 168/58; PULSE 64; RESP 14; O2SAT 95
[2024-10-09 11:29] LABS: Glucose Point of Care 91 mg/dl (65-105)
[2024-10-09] MEDS: levETIRAcetam 1500MG/NACL100ML 1,500 MG/100 ML BAG 400 MG IVPB (11:34)
[2024-10-09] MEDS: hydrALAZINE HCL 20 MG/ML VIAL 5 MG IV PUSH (11:45)
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
--- NOTE | 2024-10-09 12:31 | WPDNEUROLOGY ---
Neurology EEG Report General Information Date of Study: 10/09/24 TEST Electroencephalogram DIAGNOSIS altered mental status, metabolic encephalopathy, history of stroke CONDITION OF RECORDING bedside recording EEG NUMBER [id number] CLINICAL HISTORY history of mental status changes EEG DESCRIPTION At the beginning of the recording the patient appears drowsy. Background activity consists of predominantly theta activity at 6-7 hertz with an amplitude of 15-30 microvolts. Superimposed frontal intermittent rhythmic delta activity was seen. Patient did not progress to stage 2 sleep. Hyperventilation or photic stimulation were not performed. towards the later part of the recording the patient was briefly aroused however persistent theta activity was seen. IMPRESSION This is an abnormal EEG due to presence of mild diffuse background slowing however for most part patient was drowsy or. No focal or paroxysmal epileptiform abnormalities were seen.
[2024-10-09 12:53] LABS: Base Excess ABG 1.1 mEq/l (+/-2.0); Device ROOM AIR; Fractional Inspired Oxygen 21 %; HCO3 ABG 27.8 mEq/l (22.0-26.0); Modified Allen's Test Pass; Oxygen Content ABG 15.2 %vol (16.0-22.0); Oxygen Saturation ABG 92.8 % (95.0-100.0); Oxyhemoglobin 91.9 % THb (90.0-100.0); PCO2 ABG 53.7 mmHg (35.0-45.0); PO2 ABG 70.4 mmHg (80.0-100.0); PO2 FiO2 Ratio Arterial Blood 3.35 %; Site Drawn LEFT RADIAL; Total Hemoglobin 11.7 g/dL (12.0-18.0); pH ABG 7.332 (7.350-7.450)
[2024-10-09] MEDS: levoFLOXacin 750 MG/D5W 150 ML 750 MG/150 ML BAG 100 MG IVPB (14:08)
[2024-10-09 14:19] VITALS: PULSE 66; RESP 20; TEMP 36.2; O2SAT 95
[2024-10-09 16:00] VITALS: BP 153/65; PULSE 76; RESP 18; TEMP 36.1; O2SAT 96
[2024-10-09] MEDS: PHENAZOPYRIDINE HCL 100 MG TABLET 200 MG PO (17:19)
[2024-10-09] MEDS: PREGABALIN (*CRX) 50 MG CAPSULE 100 MG PO (17:19)
[2024-10-09] MEDS: hydrALAZINE HCL 50 MG TABLET PO (17:19)
[2024-10-09 20:00] VITALS: BP 144/54; PULSE 88; RESP 18; TEMP 36.4; O2SAT 93
[2024-10-09] MEDS: PANTOPRAZOLE 40 MG TABLET PO (20:11)
[2024-10-09] MEDS: MELATONIN 3 MG TABLET PO (20:11)
[2024-10-09] MEDS: ATORVASTATIN 40 MG TABLET 80 MG PO (20:11)
[2024-10-09] MEDS: METOPROLOL TARTRATE 25 MG TABLET PO (20:11)
[2024-10-09] MEDS: levETIRAcetam IV 750 MG in DEXTROSE 5% 100 ML 430 MG IVPB (20:14)
[2024-10-10] VITALS (7 sets, daily range): BP systolic 155–180; BP diastolic 68–81; PULSE 63–75; RESP 18–19; TEMP 36.5–36.7; O2SAT 94–98
[2024-10-10] MEDS: hydrALAZINE HCL 50 MG TABLET PO ×2 (02:09→17:21)
[2024-10-10 05:18] LABS: Hematocrit 36.9 % (42.0-52.0); Hemoglobin 10.9 g/dL (14.0-18.0); Mean Corpuscular HGB Conc 29.5 g/dl (32-36); Mean Corpuscular Volume 94.9 fl (80-100); Mean Platelet Volume 10.2 fl (7.4-10.4); Platelet Count Result 215 k/mm3 (150-375); Red Blood Count 3.89 M/mm3 (4.6-6.20); Red Cell Distribution Width 15.9 % (11.5-14.5); White Blood Count 5.9 K/mm3 (4.5-10.0)
[2024-10-10] MEDS: hydrALAZINE HCL 20 MG/ML VIAL 10 MG IV PUSH (05:22)
[2024-10-10 05:34] LABS: Alanine Aminotransferase 14 U/L (6-50); Albumin Level 3.2 g/dL (3.5-5.1); Alkaline Phosphatase 101 U/L (38-126); Anion Gap 6 mmol/L (4-12); Aspartate Amino Transferase 20 U/L (17-59); Bilirubin,Total 0.5 mg/dL (0.2-1.3); Blood Urea Nitrogen 14 mg/dL (9-20); Calcium 7.9 mg/dL (8.4-10.2); Carbon Dioxide 27 mmol/L (22-30); Chloride 107 mmol/L (98-107); Estimated CRCL calculation 87 ml/min; Estimated Glomerular Filt Rate > 60; Glucose 101 mg/dL (65-110); Potassium 3.1 mmol/L (3.4-5.0); Sodium 140 mmol/L (137-145)
--- NOTE | 2024-10-10 06:56 | P.PNIM_ITS ---
Progress Note: A&P Assessment and Plan (1) AMS (altered mental status): Qualifiers: Altered mental status type: unspecified Qualified Code(s): R41.82 - Altered mental status, unspecified Code(s): R41.82 - Altered mental status, unspecified Status: Acute Assessment and Plan: Prior to admission he felt as though he could hear people talking to him but was unable to answer or had difficulty answering. Returned to AOx4 on admission. Likely metabolic encephalopathy secondary to UTI, however possibly a CVA or seizure disorder or related to baclofen pump Patient follows with neurosurgery at [facility] 10/08 patient was AOx4, following commands. On assessment 10/09 AOx0. Not following commands. Noted left nystagmus. Sudden change in mental status not likely to be UTI alone. Noted left nystagmus. Returned to patients room and he is easily arousable, AOx1-2. On assessment today AOx4. Following commands. Head CT: Old left occipital lobe infarct. No acute intracranial process. Head/neck CTA 07/2024: No significant stenosis Patient has history of CVA and significant risk factors for recurrence though he is only on high dose statin, started on ASA MRI was ordered however unable to obtain given baclofen pump and nica placement EEG ordered to further evaluate seizure concern EEG did not show any spiking or focal slowing on the left versus right side nevertheless this would not conclusively rule out Neurochecks q4H Started on keppra, given 1500 mg IV and starting 750 mg BID this afternoon. Tra nsition to PO when AMS improves. Neurology consulted (2) Urinary tract infection associated with catheterization of urinary tract: Code(s): T83.511A - Infection and inflammatory reaction due to indwelling urethral catheter, initial encounter; N39.0 - Urinary tract infection, site not specified Status: Acute Assessment and Plan: - UA: clear appearance with 2+ leukocytes, 51-100 WBC, 2+ bacteria, and no squamous cells noted - UC obtained on 10/07/2024: pseudomonas aeruginosa pansensitive - previous micro reviewed 08/11/24: Providencia stuartii with resistance to cefazolin, gentamicin, and macrobid Several episodes throughout 2023: Ecoli ESBL and pseudomonas aeruginosa - started on Levaquin on 10/07, transitioned to meropenem on 10/08. Transitioned to IV levaquin 4/7, change to PO. (3) Hypertension: Code(s): I10 - Essential (primary) hypertension Status: Acute Assessment and Plan: Chronic Continue home medications: metoprolol 25 mg BID and hydralazine 50 mg Q8H PRN for BP > 160 Follows with cardiology, per patient they have been making adjustments in office Blood pressures reviewed, continue to monitor (4) Anemia: Code(s): D64.9 - Anemia, unspecified Status: Acute Assessment and Plan: Chronic, appears at baseline Continue iron supplementation No signs of active bleeding Continue to monitor (5) Quadriplegia, C5-C7, incomplete: Code(s): G82.54 - Quadriplegia, C5-C7 incomplete Status: Acute Time Spent With Patient Time with patient: 25 - 35 minutes Subjective Date/time seen: 10/10/24 06:56 Interval history: 74-year-old male with past medical history of 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 Patient is pleasant lying comfortably in bed. He is currently alert and oriented x3 and states that he does slightly remember yesterday morning. He states that once again he felt as though he knew what was going on during that event but was unable to talk. Per RN patient was in a seemingly postictal stage until about 430 p.m.. Has no complaints at this time denying any chest pain, shortness a breath, palpitations, nausea/vomiting, and abdominal pain. Review of Systems Review of Systems: All systems reviewed & are unremarkable except as noted in HPI and below Exam Narrative: AF HR 71 RR 19 SPO2 94 BP 155/77 General: male in no acute respiratory distress who is nontoxic appearing, lying semi recumbent in bed. HEENT: Normocephalic. Atraumatic. PERRL. Extraocular movement intact. Sclera clear and anicteric. No facial asymmetry. Chest: Lungs are clear to auscultation bilaterally. CV: Heart was regular rate and rhythm. Abd: Abdomen was soft. Nontender. Nondistended. Positive bowel sounds. Ext: No clubbing, cyanosis, or edema. DP pulses bilaterally. Neuro: Patient is alert and oriented x3. Following commands. Objective Data Vital Signs Vital Signs: Vital Signs - 24 hr 10/09/24 09:00 10/09/24 11:25 10/09/24 14:19 Temperature 97.2 F L Pulse Rate 64 66 Respiratory Rate 14 20 Blood Pressure 168/58 H Pulse Oximetry 95 95 Oxygen Delivery Room Air 10/09/24 16:00 10/09/24 20:00 10/09/24 20:00 Temperature 96.9 F L 97.5 F L Pulse Rate 76 88 Respiratory Rate 18 18 Blood Pressure 153/65 H 144/54 H Pulse Oximetry 96 93 Oxygen Delivery Room Air 10/10/24 00:00 10/10/24 04:00 Temperature 97.7 F 97.8 F Pulse Rate 65 72 Respiratory Rate 18 18 Blood Pressure 174/74 H 172/68 H Pulse Oximetry 97 94 Oxygen Delivery Intake/Output Intake/Output: Intake & Output 10/07/24 10/08/24 10/09/24 10/10/24 23:59 23:59 23:59 23:59 Intake Total 150 3813.3 2717.5 Output Total 2950 1900 Balance 150 863.3 817.5 Meds/Results Medications: Active Medications Generic Name Dose Route Start Last Admin Trade Name Freq PRN Reason Stop Dose Admin Acetaminophen 650 mg 10/07/24 15:47 Acetaminophen 325 Mg Tablet PO Q4H PRN Mild Pain (1-3) or Fever Aspirin 81 mg 10/10/24 08:00 Aspirin 81 Mg Chewable Tablet PO DAILY@0800 NASRIN Atorvastatin Calcium 80 mg 10/07/24 21:00 10/09/24 20:11 Atorvastatin 40 Mg Tablet PO 80 mg HS NASRIN Administration Bisacodyl 10 mg 10/07/24 20:16 Bisacodyl 10 Mg Suppository RECTAL DAILY PRN constipation Enoxaparin Sodium 40 mg 10/08/24 09:00 10/09/24 09:02 Enoxaparin 40 Mg/0.4 Ml Syringe SUB-Q 40 mg DAILY NASRIN Administration Ferrous Sulfate 325 mg 10/09/24 09:00 10/09/24 11:30 Ferrous Sulfate [address] PO Not Given Q48H NASRIN Hydralazine HCl 50 mg 10/08/24 03:11 10/10/24 02:09 Hydralazine Hcl 50 Mg Tablet PO 50 mg Q8H PRN Administration SBP >160 Hydralazine HCl 10 mg 10/09/24 14:18 10/10/24 05:22 Hydralazine Hcl 20 Mg/Ml Vial IV PUSH 10 mg Q8H PRN Administration Blood Pressure - High Sodium Chloride 1,000 mls @ 100 mls/hr 10/07/24 15:50 10/09/24 20:10 Normal Saline Iv IV CONT 100 mls/hr .Q10H NASRIN Administration Levofloxacin/Dextrose 750 mg in 150 mls @ 100 mls/hr 10/09/24 14:00 10/09/24 15:38 Levaquin 750 Mg/D5w 150 Ml IVPB 10/14/24 15:29 Infused Q24H NASRIN Infusion Levetiracetam 750 mg/ Dextrose 107.5 mls @ 430 mls/hr 10/09/24 21:00 10/09/24 20:29 IVPB Infused Q12H NASRIN Infusion Ibuprofen 400 mg 10/08/24 09:24 10/08/24 09:46 Ibuprofen 400 Mg Tablet PO 400 mg Q6H PRN Administration Pain Rated 1-3 Loratadine 10 mg 10/08/24 09:00 10/09/24 11:30 Loratadine 10 Mg Tablet PO Not Given DAILY NASRIN Melatonin 3 mg 10/07/24 21:00 10/09/24 20:11 Melatonin 3 Mg Tablet PO 3 mg HS NASRIN Administration Metoprolol Tartrate 25 mg 10/07/24 21:00 10/09/24 20:11 Metoprolol Tartrate 25 Mg Tablet PO 25 mg Q12H NASRIN Administration Pantoprazole Sodium 40 mg 10/07/24 21:00 10/09/24 20:11 Pantoprazole 40 Mg Tablet PO 40 mg Q12H NASRIN Administration Phenazopyridine HCl 200 mg 10/07/24 22:25 10/09/24 17:19 Phenazopyridine Hcl 100 Mg Tablet PO 200 mg TIDWM NASRIN Administration Polyethylene Glycol 17 gm 10/07/24 20:16 Polyethylene Glycol 3350 17 Gm Powd.Pack PO DAILY PRN Constipation Pregabalin 100 mg 10/07/24 20:25 10/09/24 17:19 Pregabalin (*Crx) 50 Mg Capsule PO 100 mg BID NASRIN Administration Senna 8.6 mg 10/07/24 20:21 Sennosides 8.6 Mg Tablet PO BID PRN constipation Radiology Results: ITS Impressions Head CT 10/07/24 11:36 IMPRESSION: 1. Old left occipital lobe infarct. No acute intracranial process. Chest X-Ray 10/08/24 08:27 IMPRESSION: Right basilar atelectasis versus pneumonia with no change from previous examination. Minimal right pleural effusion. Chest CT 10/09/24 23:24 IMPRESSION: Consolidation within the medial segment of the right lower lobe. The remainder of the lungs are clear. Labs Labs: Laboratory Results - last 24 hr 10/09/24 10/09/24 10/10/24 10:58 12:50 04:48 WBC 5.9 RBC 3.89 L Hgb 10.9 L Hct 36.9 L MCV 94.9 MCH 28.0 MCHC 29.5 L RDW 15.9 H Plt Count 215 MPV 10.2 Puncture Site Left radial ABG pH 7.332 L ABG pCO2 53.7 H ABG pO2 70.4 L ABG PO2/FiO2 Ratio 3.35 ABG HCO3 27.8 H ABG O2 Saturation 92.8 L ABG O2 Content 15.2 L ABG Base Excess 1.1 A-a Gradient 15.0 Oxyhemoglobin 91.9 Total Hemoglobin 11.7 L O2 Delivery Device Room air O2 Liters/Min Not Reportable FiO2 21 Sodium 140 Potassium 3.1 L Chloride 107 Carbon Dioxide 27 Anion Gap 6 BUN 14 Creatinine 0.72 Estim Creat Clear Calc 87 Estimated GFR > 60 Glucose 101 POC Capillary Glucose 91 Calcium 7.9 L Total Bilirubin 0.5 AST 20 ALT 14 Alkaline Phosphatase 101 Total Protein 6.0 L Albumin 3.2 L Quality VTE Prophylaxis VTE prophylaxis: pharmacologic ordered
[2024-10-10] MEDS: PREGABALIN (*CRX) 50 MG CAPSULE 100 MG PO ×2 (08:34→17:20)
[2024-10-10] MEDS: LORATADINE 10 MG TABLET PO (08:34)
[2024-10-10] MEDS: ENOXAPARIN 40 MG/0.4 ML SYRINGE SUB-Q (08:34)
[2024-10-10] MEDS: PANTOPRAZOLE 40 MG TABLET PO ×2 (08:34→20:03)
[2024-10-10] MEDS: ASPIRIN 81 MG CHEWABLE TABLET PO (08:34)
[2024-10-10] MEDS: PHENAZOPYRIDINE HCL 100 MG TABLET 200 MG PO ×3 (08:34→17:20)
[2024-10-10] MEDS: METOPROLOL TARTRATE 25 MG TABLET PO ×2 (08:34→20:03)
[2024-10-10] MEDS: POTASSIUM CHLORIDE 20 MEQ ER TABLET 40 MEQ PO (08:34)
[2024-10-10] MEDS: levETIRAcetam IV 750 MG in DEXTROSE 5% 100 ML 430 MG IVPB (08:58)
[2024-10-10] MEDS: levoFLOXacin 750 MG TABLET PO (14:04)
[2024-10-10] MEDS: ATORVASTATIN 40 MG TABLET 80 MG PO (20:03)
[2024-10-10] MEDS: levETIRAcetam Tablet 250 MG, levETIRAcetam Tablet 500 MG 750 MG PO (20:03)
[2024-10-10] MEDS: MELATONIN 3 MG TABLET PO (20:04)
[2024-10-10] MEDS: amLODIPine BESYLATE 10 MG TABLET PO (21:05)
[2024-10-11] VITALS: BP 185/75; PULSE 65; RESP 18; TEMP 36.3; O2SAT 96
[2024-10-11 00:38] LABS: Prolactin 13.5 ng/mL (2.0-18.0)
[2024-10-11] MEDS: hydrALAZINE HCL 50 MG TABLET PO ×2 (00:59→09:13)
[2024-10-11 04:00] VITALS: BP 151/59; PULSE 66; RESP 18; TEMP 36.9; O2SAT 96
[2024-10-11 05:15] LABS: Hematocrit 36.1 % (42.0-52.0); Hemoglobin 10.6 g/dL (14.0-18.0); Mean Corpuscular HGB Conc 29.4 g/dl (32-36); Mean Corpuscular Volume 95.3 fl (80-100); Mean Platelet Volume 10.4 fl (7.4-10.4); Platelet Count Result 197 k/mm3 (150-375); Red Blood Count 3.79 M/mm3 (4.6-6.20); Red Cell Distribution Width 15.9 % (11.5-14.5); White Blood Count 5.5 K/mm3 (4.5-10.0)
[2024-10-11 05:27] LABS: Alanine Aminotransferase 22 U/L (6-50); Albumin Level 3.1 g/dL (3.5-5.1); Alkaline Phosphatase 101 U/L (38-126); Anion Gap 4 mmol/L (4-12); Aspartate Amino Transferase 33 U/L (17-59); Bilirubin,Total 0.5 mg/dL (0.2-1.3); Blood Urea Nitrogen 15 mg/dL (9-20); Calcium 7.8 mg/dL (8.4-10.2); Carbon Dioxide 31 mmol/L (22-30); Chloride 107 mmol/L (98-107); Estimated CRCL calculation 80 ml/min; Estimated Glomerular Filt Rate > 60; Glucose 104 mg/dL (65-110); Potassium 3.2 mmol/L (3.4-5.0); Sodium 142 mmol/L (137-145)
--- NOTE | 2024-10-11 07:21 | PM.IMPN ---
Progress Note: A&P Assessment and Plan (1) AMS (altered mental status): Qualifiers: Altered mental status type: unspecified Qualified Code(s): R41.82 - Altered mental status, unspecified Code(s): R41.82 - Altered mental status, unspecified Status: Acute Assessment and Plan: Prior to admission he felt as though he could hear people talking to him but was unable to answer or had difficulty answering. Returned to AOx4 on admission. Likely metabolic encephalopathy secondary to UTI, however possibly a CVA or seizure disorder or related to baclofen pump Patient follows with neurosurgery at [facility] 10/08 patient was AOx4, following commands. On assessment 10/09 AOx0. Not following commands. Noted left nystagmus. Sudden change in mental status not likely to be UTI alone. Noted left nystagmus. Returned to patients room and he is easily arousable, AOx1-2. On assessment today AOx4. Following commands. Head CT: Old left occipital lobe infarct. No acute intracranial process. Head/neck CTA 07/2024: No significant stenosis Patient has history of CVA and significant risk factors for recurrence though he is only on high dose statin, started on ASA MRI was ordered however unable to obtain given baclofen pump and nica placement EEG ordered to further evaluate seizure concern EEG did not show any spiking or focal slowing on the left versus right side nevertheless this would not conclusively rule out Neurochecks q4H Started on keppra, given 1500 mg IV and starting 750 mg BID this afternoon. Transition to PO when AMS improves. Neurology consulted (2) Urinary tract infection associated with catheterization of urinary tract: Code(s): T83.511A - Infection and inflammatory reaction due to indwelling urethral catheter, initial encounter; N39.0 - Urinary tract infection, site not specified Status: Acute Assessment and Plan: - UA: clear appearance with 2+ leukocytes, 51-100 WBC, 2+ bacteria, and no squamous cells noted - UC obtained on 10/07/2024: pseudomonas aeruginosa pansensitive - previous micro reviewed 08/11/24: Providencia stuartii with resistance to cefazolin, gentamicin, and macrobid Several episodes throughout 2023: Ecoli ESBL and pseudomonas aeruginosa - started on Levaquin on 10/07, transitioned to meropenem on 10/08. Transitioned to IV levaquin 10/09, change to PO. (3) Hypertension: Code(s): I10 - Essential (primary) hypertension Status: Acute Assessment and Plan: Chronic Continue home medications: metoprolol 25 mg BID and hydralazine 50 mg Q8H PRN for BP > 160 Follows with cardiology, per patient they have been making adjustments in office Blood pressures reviewed, continue to monitor (4) Anemia: Code(s): D64.9 - Anemia, unspecified Status: Acute Assessment and Plan: Chronic, appears at baseline Continue iron supplementation No signs of active bleeding Continue to monitor (5) Quadriplegia, C5-C7, incomplete: Code(s): G82.54 - Quadriplegia, C5-C7 incomplete Status: Acute Subjective Date/time seen: 10/11/24 07:21 Interval history: 74-year-old male with past medical history of 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 Patient is pleasant lying comfortably in bed. He is currently alert and oriented x3 and states that he does slightly remember yesterday morning. He states that once again he felt as though he knew what was going on during that event but was unable to talk. Per RN patient was in a seemingly postictal stage until about 430 p.m.. Has no complaints at this time denying any chest pain, shortness a breath, palpitations, nausea/vomiting, and abdominal pain. Review of Systems Review of Systems: 12 systems were reviewed and are negative except for as per HPI. All systems reviewed & are unremarkable except as noted in HPI and below ROS unobtainable: Yes unobtainable due to mental status Exam Narrative: AF HR 71 RR 19 SPO2 94 BP 155/77 General: male in no acute respiratory distress who is nontoxic appearing, lying semi recumbent in bed. HEENT: Normocephalic. Atraumatic. PERRL. Extraocular movement intact. Sclera clear and anicteric. No facial asymmetry. Chest: Lungs are clear to auscultation bilaterally. CV: Heart was regular rate and rhythm. Abd: Abdomen was soft. Nontender. Nondistended. Positive bowel sounds. Ext: No clubbing, cyanosis, or edema. DP pulses bilaterally. Neuro: Patient is alert and oriented x3. Following commands. Objective Data Vital Signs Vital Signs: Vital Signs - 24 hr 10/10/24 08:00 10/10/24 08:30 10/10/24 08:34 Temperature 98.1 F Pulse Rate 63 72 Respiratory Rate 19 Blood Pressure 177/78 H Pulse Oximetry 96 Oxygen Delivery Room Air 10/10/24 12:00 10/10/24 16:00 10/10/24 20:00 Temperature 97.9 F 98.1 F 97.7 F Pulse Rate 71 72 75 Respiratory Rate 19 18 18 Blood Pressure 155/77 H 180/81 H Pulse Oximetry 94 96 98 Oxygen Delivery 10/10/24 20:00 10/11/24 00:00 10/11/24 04:00 Temperature 97.4 F L 98.4 F Pulse Rate 65 66 Respiratory Rate 18 18 Blood Pressure 185/75 H 151/59 H Pulse Oximetry 96 96 Oxygen Delivery Room Air Intake/Output Intake/Output: Intake & Output 10/08/24 10/09/24 10/10/24 10/11/24 23:59 23:59 23:59 23:59 Intake Total 3813.3 2717.5 897.5 Output Total 2950 1900 2100 2700 Balance 863.3 817.5 -1202.5 -2700 Meds/Results Medications: Active Medications Generic Name Dose Route Start Last Admin Trade Name Freq PRN Reason Stop Dose Admin Acetaminophen 650 mg 10/07/24 15:47 Acetaminophen 325 Mg Tablet PO Q4H PRN Mild Pain (1-3) or Fever Aspirin 81 mg 10/10/24 08:00 10/10/24 08:34 Aspirin 81 Mg Chewable Tablet PO 81 mg DAILY@0800 [facility] Administration Atorvastatin Calcium 80 mg 10/07/24 21:00 10/10/24 20:03 Atorvastatin 40 Mg Tablet PO 80 mg HS [facility] Administration Bisacodyl 10 mg 10/07/24 20:16 Bisacodyl 10 Mg Suppository RECTAL DAILY PRN constipation Enoxaparin Sodium 40 mg 10/08/24 09:00 10/10/24 08:34 Enoxaparin 40 Mg/0.4 Ml Syringe SUB-Q 40 mg DAILY NASRIN Administration Ferrous Sulfate 325 mg 10/11/24 12:00 Ferrous Sulfate [address] PO Q48H [facility] Hydralazine HCl 50 mg 10/08/24 03:11 10/11/24 00:59 Hydralazine Hcl 50 Mg Tablet PO 50 mg Q8H PRN Administration SBP >160 Ibuprofen 400 mg 10/08/24 09:24 10/08/24 09:46 Ibuprofen 400 Mg Tablet PO 400 mg Q6H PRN Administration Pain Rated 1-3 Levetiracetam 250 mg/ 750 mg 10/10/24 21:00 10/10/24 20:03 Levetiracetam 500 mg PO 750 mg Q12HR NASRIN Administration Levofloxacin 750 mg 10/10/24 13:05 10/10/24 14:04 Levofloxacin 750 Mg Tablet PO 10/14/24 09:01 750 mg DAILY NASRIN Administration Loratadine 10 mg 10/08/24 09:00 10/10/24 08:34 Loratadine 10 Mg Tablet PO 10 mg DAILY NASRIN Administration Melatonin 3 mg 10/07/24 21:00 10/10/24 20:04 Melatonin 3 Mg Tablet PO 3 mg HS NASRIN Administration Metoprolol Tartrate 25 mg 10/07/24 21:00 10/10/24 20:03 Metoprolol Tartrate 25 Mg Tablet PO 25 mg Q12H NASRIN Administration Pantoprazole Sodium 40 mg 10/07/24 21:00 10/10/24 20:03 Pantoprazole 40 Mg Tablet PO 40 mg Q12H NASRIN Administration Phenazopyridine HCl 200 mg 10/07/24 22:25 10/10/24 17:20 Phenazopyridine Hcl 100 Mg Tablet PO 200 mg TIDWM NASRIN Administration Polyethylene Glycol 17 gm 10/07/24 20:16 Polyethylene Glycol 3350 17 Gm Powd.Pack PO DAILY PRN Constipation Pregabalin 100 mg 10/07/24 20:25 10/10/24 17:20 Pregabalin (*Crx) 50 Mg Capsule PO 100 mg BID NASRIN Administration Senna 8.6 mg 10/07/24 20:21 Sennosides 8.6 Mg Tablet PO BID PRN constipation Radiology Results: ITS Impressions Head CT 10/07/24 11:36 IMPRESSION: 1. Old left occipital lobe infarct. No acute intracranial process. Chest X-Ray 10/08/24 08:27 IMPRESSION: Right basilar atelectasis versus pneumonia with no change from previous examination. Minimal right pleural effusion. Chest CT 10/09/24 23:24 IMPRESSION: Consolidation within the medial segment of the right lower lobe. The remainder of the lungs are clear. Labs Labs: Laboratory Results - last 24 hr 10/09/24 10/10/24 10/11/24 04:56 04:48 04:28 WBC 5.9 5.5 RBC 3.89 L 3.79 L Hgb 10.9 L 10.6 L Hct 36.9 L 36.1 L MCV 94.9 95.3 MCH 28.0 28.0 MCHC 29.5 L 29.4 L RDW 15.9 H 15.9 H Plt Count 215 197 MPV 10.2 10.4 Sodium 140 142 Potassium 3.1 L 3.2 L Chloride 107 107 Carbon Dioxide 27 31 H Anion Gap 6 4 BUN 14 15 Creatinine 0.72 0.79 Estim Creat Clear Calc 87 80 Estimated GFR > 60 > 60 Glucose 101 104 Calcium 7.9 L 7.8 L Total Bilirubin 0.5 0.5 AST 20 33 ALT 14 22 Alkaline Phosphatase 101 101 Total Protein 6.0 L 6.0 L Albumin 3.2 L 3.1 L Prolactin 13.5 Quality VTE Prophylaxis VTE prophylaxis: pharmacologic ordered
--- NOTE | 2024-10-11 07:24 | P.DS_ITS ---
DS: Admitting Diagnosis Discharge Date 10/11 Admitting Diagnosis uti, ams DS: Discharge Diagnosis Discharge Diagnosis (1) AMS (altered mental status): Qualifiers: Altered mental status type: unspecified Qualified Code(s): R41.82 - Altered mental status, unspecified Code(s): R41.82 - Altered mental status, unspecified Status: Acute (2) Urinary tract infection associated with catheterization of urinary tract: Code(s): T83.511A - Infection and inflammatory reaction due to indwelling urethral catheter, initial encounter; N39.0 - Urinary tract infection, site not specified Status: Acute (3) Hypertension: Code(s): I10 - Essential (primary) hypertension Status: Acute (4) Anemia: Code(s): D64.9 - Anemia, unspecified Status: Acute (5) Quadriplegia, C5-C7, incomplete: Code(s): G82.54 - Quadriplegia, C5-C7 incomplete Status: Acute (6) Hypokalemia: Code(s): E87.6 - Hypokalemia Status: Acute DS: Summary Hospital Course Hospital Course: 74-year-old male with past medical history of 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 Several issues were addressed: # AMS Prior to admission he felt as though he could hear people talking to him but was unable to answer or had difficulty answering. Returned to AOx4 on admission. Likely metabolic encephalopathy secondary to UTI, however possibly a CVA or seizure disorder or related to baclofen pump Patient follows with neurosurgery at [facility] On assessment 10/09 AOx0. Not following commands. Noted left nystagmus. Sudden change in mental status not likely to be UTI alone. Noted left nystagmus. Returned to patients room and he is easily arousable, AOx1-2. On assessment today AOx4. Following commands. Head CT: Old left occipital lobe infarct. No acute intracranial process. Head/neck CTA 07/2024: No significant stenosis Patient has history of CVA and significant risk factors for recurrence though he is only on high dose statin, started on ASA MRI was ordered however unable to obtain given baclofen pump and nica placement EEG ordered to further evaluate seizure concern EEG did not show any spiking or focal slowing on the left versus right side nevertheless this would not conclusively rule out Neurochecks q4H Started on keppra, given 1500 mg IV and starting 750 mg BID this afternoon. Transition to PO- will continue- rx sent Neurology consulted and following. Will need a follow up with neurology. # UTI - UA: clear appearance with 2+ leukocytes, 51-100 WBC, 2+ bacteria, and no squamous cells noted - UC obtained on 10/07/2024: pseudomonas aeruginosa pansensitive - previous micro reviewed 08/11/24: Providencia stuartii with resistance to cefazolin, gentamicin, and macrobid Several episodes throughout 2023: Ecoli ESBL and pseudomonas aeruginosa - started on Levaquin on 10/07, transitioned to meropenem on 10/08. Transitioned to IV levaquin 10/09, change to PO. NEEDS 3 MORE DOSES- LAST DAY 10/14 AT 9AM- rx sent # HYPOKALEMIA today 3.2 (up from 3.1) iv K ordered, over half way infused. Pt wants to leave [facility] in order to get a shower at his facility. Will order PO replacement as well and lab to be repeated in few days to ensure stable. Status at Discharge Functional status at discharge: bed bound Overall status at discharge: patient is progressing back to baseline Time Spent with Patient Time attestation: Total time spent providing and/or coordinating discharge services: Exam Narrative: General: male in no acute respiratory distress who is nontoxic appearing, lying semi recumbent in bed. HEENT: Normocephalic. Atraumatic. PERRL. Extraocular movement intact. Sclera clear and anicteric. No facial asymmetry. Chest: Lungs are clear to auscultation bilaterally. CV: Heart was regular rate and rhythm. Abd: Abdomen was soft. Nontender. Nondistended. Positive bowel sounds. Ext: No clubbing, cyanosis, or edema. DP pulses bilaterally. Neuro: Patient is alert and oriented x3. Following commands. Const: General: comfortable DS: Data Data Completed and Pending Completed studies during hospitalization: chest ct, xray Labs on day of discharge: Labs from last 24 hours 10/11/24 10/10/24 10/09/24 04:28 04:48 04:56 WBC 5.5 5.9 RBC 3.79 L 3.89 L Hgb 10.6 L 10.9 L Hct 36.1 L 36.9 L MCV 95.3 94.9 MCH 28.0 28.0 MCHC 29.4 L 29.5 L RDW 15.9 H 15.9 H Plt Count 197 215 MPV 10.4 10.2 Sodium 142 140 Potassium 3.2 L 3.1 L Chloride 107 107 Carbon Dioxide 31 H 27 Anion Gap 4 6 BUN 15 14 Creatinine 0.79 0.72 Estim Creat Clear Calc 80 87 Estimated GFR > 60 > 60 Glucose 104 101 Calcium 7.8 L 7.9 L Total Bilirubin 0.5 0.5 AST 33 20 ALT 22 14 Alkaline Phosphatase 101 101 Total Protein 6.0 L 6.0 L Albumin 3.1 L 3.2 L Prolactin 13.5 Discharge Plan Discharge Attending physician on discharge: Bishnu Horne Consulting providers: Leslie Eaton Discharging Clinician: Megan Rogers Patient Disposition: NH Alf/Asst Living Activity: november shower Diet: heart healthy Patient Instructions: Antibiotic Form Patient Language: Divehi Stand Alone Forms: General Discharge Information Discharge Medications: New levetiracetam 250 mg Tablet 750 mg PO Q12HR Qty: 90 0RF levofloxacin 750 mg tablet 750 mg PO DAILY 3 Days Qty: 3 0RF Rx Instructions: last day 10/14 at 19722 am potassium chloride [K-Tab] 20 mEq tablet extended release 20 meq PO BID Qty: 10 0RF Continued magnesium citrate [OneLAX Magnesium Citrate] Solution 150 ml PO DAILY PRN (Reason: constipation) Qty: 296 0RF metoprolol tartrate 25 mg tablet 25 mg PO Q12H methenamine hippurate [Hiprex] 1 gram Tablet 1 g PO BID pantoprazole [Protonix] 40 mg Tablet,Delayed Release (Dr/Ec) 40 mg PO Q12H ascorbic acid (vitamin C) 500 mg Tablet,Chewable 500 mg PO DAILY ibuprofen 400 mg Tablet 800 mg PO Q6-8H PRN (Reason: Pain) acidophilus-pectin, citrus 100 million cell-10 mg Capsule 1 cap PO BID cranberry 450 mg Tablet 450 mg PO BID Rx Instructions: administer with meals hydroxyzine HCl 25 mg tablet 25 mg PO TID PRN (Reason: Anxiety) miconazole nitrate 2 % cream 1 applic TOPICAL PRN bisacodyl 10 mg suppository 10 mg RECTAL DAILY PRN (Reason: constipation) Rx Instructions: IF NO BM X 3DAYS senna 8.6 mg capsule 8.6 mg PO BID PRN (Reason: constipation) Rx Instructions: IF NO BM X 3 DAYS zinc oxide-petrolatum 20-51 % paste 1 applic topical DAILY PRN (Reason: skin irritation) Rx Instructions: TO REDDENED OR EXCORIATED SKIN FOR PREVENTION AND PROTECTIVE MEASURES melatonin 3 mg tablet See Rx Instructions PO HS Rx Instructions: 1 or 2 tab orally bedtime; Adults Multivitamin 18 mg iron-400 mcg-25 mcg tablet 1 tablet PO DAILY loratadine [Claritin] 10 mg tablet 10 mg PO DAILY atorvastatin 80 mg Tablet 80 mg PO HS acetaminophen tablet 1,000 mg PO Q6H PRN (Reason: Pain) ferrous sulfate 325 mg (65 mg iron) Tablet 325 mg PO EVERY OTHER DAY folic acid 1 mg PO DAILY@1200 pregabalin [Lyrica] 100 mg Capsule 100 mg PO BID polyethylene glycol 3350 [Miralax] 17 gram/dose Powder 17 g PO DAILY PRN (Reason: Constipation) [id number]-[id number] cb#1 11-11 % Cream 1 applic TOPICAL Q4H PRN (Reason: Pain) Rx Instructions: apply to back guaifenesin [Mucinex] 600 mg Tablet Extended Release 12hr 600 mg PO Q12H PRN (Reason: Allergic Symptoms) simethicone [Gas Relief (simethicone)] 80 mg Tablet,Chewable 80 mg PO BID PRN (Reason: Indigestion) hydralazine 50 mg Tablet 50 mg PO Q8H PRN (Reason: Hypertension) Rx Instructions: BP>160/80 naloxone 4 mg/actuation spray,non-aerosol 1 spray INTRANASAL DIRECTED PRN (Reason: Opiate Reversal) hydralazine 50 mg tablet 50 mg PO BID Rx Instructions: hold if SBP less than 140 duloxetine 30 mg capsule,delayed release(DR/EC) 30 mg PO BID Other Ambulatory Orders: Basic Metabolic Panel (Routine) Timeframe: 1 Week Location: Determined by Patient Ordered By: Megan Rogers Date of admission: 10/08/24 12:51 Primary Care Provider: RicaRod Admitting Provider: Abhi Angela Attending physician on admission: Carole Lofton Condition: Stable Quality VTE Prophylaxis VTE prophylaxis: pharmacologic ordered Hospitalist MIPS Heart Failure (Exclusion) Patient has history of Heart Transplant or Left Ventricular Assistive Device?: No IF YES, STOP HERE Heart Failure (Qualifier) Patient has current or prior documentation of LVEF less than or equal to 40%, or mod/servere depressed LVSF?: No IF NO, STOP HERE
[2024-10-11 08:00] VITALS: BP 149/71; PULSE 70; RESP 16; TEMP 36.6; O2SAT 94
[2024-10-11 09:12] VITALS: PULSE 70
[2024-10-11] MEDS: PREGABALIN (*CRX) 50 MG CAPSULE 100 MG PO (09:12)
[2024-10-11] MEDS: ENOXAPARIN 40 MG/0.4 ML SYRINGE SUB-Q (09:12)
[2024-10-11] MEDS: METOPROLOL TARTRATE 25 MG TABLET PO (09:12)
[2024-10-11] MEDS: ASPIRIN 81 MG CHEWABLE TABLET PO (09:12)
[2024-10-11] MEDS: levoFLOXacin 750 MG TABLET PO (09:12)
[2024-10-11] MEDS: LORATADINE 10 MG TABLET PO (09:12)
[2024-10-11] MEDS: PHENAZOPYRIDINE HCL 100 MG TABLET 200 MG PO (09:13)
[2024-10-11] MEDS: POTASSIUM CHLORIDE INJ 40 MEQ in SODIUM CHLORIDE 0.9% IV 500 ML 130 MEQ IVPB (09:13)
[2024-10-11] MEDS: PANTOPRAZOLE 40 MG TABLET PO (09:13)
[2024-10-11] MEDS: levETIRAcetam Tablet 250 MG, levETIRAcetam Tablet 500 MG 750 MG PO (09:16)
== END 2024-10-11 12:00 | DRG 698 ==
LOC: ANHED 13:04 → ANH2MED 16:35
PROVIDERS: Nurse Practitioner Gerontology; Student in an Organized Health Care Education/Training Program; Admitting Provider Internal Medicine; Emergency Provider Emergency Medicine; PCP Internal Medicine; Visit Provider Nurse Practitioner
DX: T83.511A Infection and inflammatory reaction due to indwelling urethral catheter, initial encounter (principal); G82.54 Quadriplegia, C5-C7 incomplete; G93.41 Metabolic encephalopathy; N39.0 Urinary tract infection, site not specified; B96.5 Pseudomonas (aeruginosa) (mallei) (pseudomallei) as the cause of diseases classified elsewhere; I69.398 Other sequelae of cerebral infarction; D64.9 Anemia, unspecified; E87.6 Hypokalemia; G89.29 Other chronic pain; H55.00 Unspecified nystagmus; H53.8 Other visual disturbances; I10 Essential (primary) hypertension; K21.9 Gastro-esophageal reflux disease without esophagitis; N31.9 Neuromuscular dysfunction of bladder, unspecified; Z86.718 Personal history of other venous thrombosis and embolism; Z90.49 Acquired absence of other specified parts of digestive tract; Z87.891 Personal history of nicotine dependence
CPT/HCPCS: 36415; 36600; 70450; 71045; 71260; 80048; 80053; 81001; 82805; 82948; 84146; 85018; 85025; 85027; 85610; 85730; 87086; 87186; 93005; 95816; 96365; 99285; A9270; G0378; J0360; J1650; J1953; J1956; J2185; J3480; J7030; J7040; Q9967

== ENCOUNTER 2024-10-17 12:49 | Emergency (ER) | payer MEDICARE, SELFPAY ==
--- NOTE | ~2024-10-17 | CT_ITS ---
CT cervical spine wo con Ordering provider: Dexter Miller MD History: . neck pain . Comparison: None. Technique: CT of the cervical spine was performed without contrast. Sagittal and coronal reformatted images were also obtained and reviewed. Automated exposure control and iterative reconstruction milton hnique were employed. The dose-length product was 253.66 mGy-cm. FINDINGS: VERTEBRAE: No subluxation or acute fracture. The occipital condyles are intact. Degenerative changes of the spine. Levoscoliosis. DISC SPACES: Narrowing of the disc spaces C3-C4, C4-C5. IS 6 and C6-7. Multilevel facet joint disease . Multilevel uncovertebral joint osteoarthritic changes. Multilevel narrowing of the intervertebral f oramina. MRI is better for evaluation. PARASPINOUS SOFT TISSUES: Normal. IMPRESSION: No acute osseous abnormality cervical spine. Multilevel degenerative disc disease, facet joint disease, uncovertebral joint osteoarthritic changes and intervertebral foraminal narrowing. MRI is better for evaluation Reviewed, dictated and finalized at location A. IMPRESSION: No acute osseous abnormality cervical spine. Multilevel degenerative disc disease, facet joint disease, uncovertebral joint osteoarthritic changes and intervertebral foraminal narrowing. MRI is better fo r evaluation
[2024-10-17 12:55] VITALS: BP 148/71; PULSE 60; RESP 18; TEMP 36.4; O2SAT 98
[2024-10-17 15:07] LABS: Basophils Percent Auto 0.7 % (0.2-1.2); Eosinophils Absolute Auto 0.2 K/mm3 (0-0.3); Eosinophils Percent Auto 2.6 % (0-4.4); Hemoglobin 10.7 g/dL (14.0-18.0); Immature Granulocyte Absolute 0.03 K/mm3 (0.00-0.031); Immature Granulocyte Percent A 0.5 % (0-0.5); Lymphocytes Absolute Auto 0.81 K/mm3 (0.9-3.2); Lymphocytes Percent Auto 13.4 % (18.3-44.2); Mean Corpuscular HGB Conc 30.6 g/dl (32-36); Mean Corpuscular Hemoglobin 28.5 pg (26-34); Mean Corpuscular Volume 93.1 fl (80-100); Mean Platelet Volume 10.5 fl (7.4-10.4); Monocytes Absolute Auto 0.9 K/mm3 (0.1-0.6); Monocytes Percent Auto 14.1 % (2.6-8.5); Neutrophils Absolute Auto 4.2 K/mm3 (1.3-6.7); Neutrophils Percent Auto 68.7 % (45.5-73.1); Platelet Count Result 190 k/mm3 (150-375); Red Blood Count 3.76 M/mm3 (4.6-6.20); Red Cell Distribution Width 15.9 % (11.5-14.5)
[2024-10-17 15:11] LABS: Add Urine Microscopic? YES; Appearance Urine Clear (Clear); Bacteria Urine None Seen /hpf; Bilirubin Urine Negative (Negative); Blood Urine Negative (Negative); Color Urine Yellow (Yellow); Glucose Urine UA Negative (Negative); Ketones Urine Negative (Negative); Leukocyte Esterase Ur 1+ LEU/UL (Negative); Nitrate Urine Negative (Negative); Protein Urine Negative (Negative); RBC Urine 0-2 /hpf (0-2); Specific Grav Ur 1.011 (1.001-1.035); Squamous Epithelial Cell Urine Occasional /hpf (Few); Urobilinogen Urine 0.2 mg/dL (<2.0)
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
--- OUTSIDE RECORDS SUMMARY | 2024-10-17 15:15 | XMS_ITS | Clinical Summary ---
Author Organization [facility] [employer] Address [address] [place] [address] Care Team Providers Care Professor Of Business Administration Name Role Phone Rod Strauss MD Primary Care Provider [phone] Source Comments [facility] [employer],non-owned Affiliates and Associated Physician Practices is amultiple site organization consisting of ambulatory clinics and hospital sitesin [place], [place], [place] and [place]. This disclosure is being madepursuant to the Care Everywhere program and may not contain all information available regarding this patient. Last updated 18.[facility] [employer] Allergies Active Allergy Reactions Criticality Noted Date Comments Levofloxacin Rash Medium 05/09/2019 Sulfamethoxazole W-Trimethoprim Other Low 04/22/2017 confusion Tizanidine Hcl Other Low 03/13/2024 Reaction: Muscle Spasm, Venlafaxine Dizziness Low 04/21/2023 Medications * Be aware that medications may not be up to date on this document. Alwaysverify current medications with the patient. folic acid (FOLVITE) 1 MG tablet Take [...] MOHINI of MV. LVEF >70%. Follows with [facility]. 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 Urine cx from [facility] on 05/04 also growing pseudomonas, [...] to reach son and obtained collateral from [facility] - CT Head today. - [...] medical care, and heating? Patient declined 05/31/2024 [facility] - Occupational Stress Questionnaire Answer Date Recorded [...] any time in the past 12 m [facility], were you homeless or living in a fdc (including now)? Patient declined 05/31/2024 Sex and Gender Information Value Date Recorded Sex Assigned at Not on file Legal Sex Male 5:23 PM COMPUTER APPLICATION DEVELOPER Gender Identity Not on file Sexual Orientation Not on file Last Filed Vital Signs Vital Sign Reading Time Taken Comments Blood Pressure 135/77 06/15/2024 11:48 AM COMPUTER APPLICATION DEVELOPER Pulse 74 06/15/2024 11:48 AM COMPUTER APPLICATION DEVELOPER Temperature 36.4 C (97.6 F) 06/15/2024 8:35 AM COMPUTER APPLICATION DEVELOPER Respiratory Rate 16 06/15/2024 11:48 AM COMPUTER APPLICATION DEVELOPER Oxygen Saturation 97% 06/15/2024 11:48 AM COMPUTER APPLICATION DEVELOPER Inhaled Oxygen Concentration 40% 06/04/2024 9 :43 AM COMPUTER APPLICATION DEVELOPER Weight 88.5 kg (195 lb) 06/15/2024 8:35 AM COMPUTER APPLICATION DEVELOPER Height 190.5 cm (6' 3 ) 06/15/2024 8:35 AM COMPUTER APPLICATION DEVELOPER Body Mass Index 24.37 06/15/2024 8:35 AM COMPUTER APPLICATION DEVELOPER Plan of Treatment Health Maintenance Due Date [...] this topic Medical Devices Implanted Type Area Auto Service Writer Device Identifier Shelf Expiration Date Model / Serial / Lot Synchromed Iii Pump Implanted:Qty: 1 on 06/04/2024 by Deshawn Schultz MD at [facility] Left: Abdomen [employer] 08/18/2025 8667-40 / [id number] / Ascenda Implanted:Qty: 1 on 06/04/2024 by Deshawn Schultz MD at [facility] Left: Abdomen [employer] 12/14/2024 [id number] / / [id number] Procedures Procedure Name Priority Date/Time Associated Diagnosis Comments HEPATITIS C AB SCREEN RFLX NAAT QUANT STAT 06/06/2024 11:49 AM COMPUTER APPLICATION DEVELOPER from Last 3 Months or Most Recently Relevant to Health Maintenance Results * HEPATITIS C AB SCREEN RFLX NAAT QUANT (06/06/2024 11:49 AM COMPUTER APPLICATION DEVELOPER) Hepatitis C Antibody Non-react lottie Non-reac tive 06/06/2024 1:01 PM COMPUTER APPLICATION DEVELOPER [facility] Comment:Hepatitis C Antibody screen indicates [...] Lab Venipuncture / Unknown 06/06/2024 11:49 AM COMPUTER APPLICATION DEVELOPER 06/06/2024 12:05 PM COMPUTER APPLICATION DEVELOPER Salena Griffin APRN-MEDICAL CODING SPECIALIST LAB - CHEMISTRY ORDERABLES F inal Result [facility] [address] [place] [id number], [facility] [phone] from Last 3 Months or Most Recently Relevant to Health Maintenance Additional Health Concerns Infection Onset Date Last Indicated ESBL GNR 06/01/2024 06/01/[address] [place] [address] [employer] [address] MEDICARE Advance Directives * Full Code (Latest Code Status on File) Date Activated Date Inactivated Comments 05/31/2024 11:27 PM 06/09/2024 8:37 PM Care Teams Professor Of Business Administration Relationship Specialty Start Date End Date Rod Strauss MD [address] [place] [id number] PCP - General Internal Medicine 06/15/24
--- OUTSIDE RECORDS SUMMARY | 2024-10-17 15:15 | XMS_ITS | Encounter Summary ---
Author Organization [facility] Address [address] [place] [address] Care Team Providers Care Nailhead Setter Name Role Phone Unavailable Primary Care Provider Unavailabl e Encounter Details Date Type Department Care Team (Late st Contact Info) Description 01/13/2006 Outpatient Historical [facility] Supp [facility] Blood Flow [address] [place] [address] Dillan Henry MD NO ADDRESS ON FILE Social History Tobacco Use Types Packs/Day Years Used Date Smoking Tobacco: Never Assessed Sex and Gender Information Value Date Recorded Sex Assigned at Not on file Legal Sex Male 3:46 AM SHADE HANGER Gender Identity Not on file Sexual Orientation Not on file documented as of this encounter Plan of Treatment Not on file documented as of this encounter Visit Diagnoses Not on filedocumented in this encounter
--- OUTSIDE RECORDS SUMMARY | 2024-10-17 15:15 | XMS_ITS | Encounter Summary ---
Author Organization [employer] Address [address] [place] [address] Care Team Providers Care Process Artist Name Role Phone Unavailable Primary Care Provider Unavailabl e Encounter Details Date Type Department Care Team (Late st Contact Info) Description 01/13/2006 Outpatient Historical [facility] [address] [place] [address] Phyllis Bajwa MD [address] [address] [address] [place] [address] Social History Tobacco Use Types Packs/Day Years Used Date Smoking Tobacco: Never Assessed Sex and Gender Information Value Date Recorded Sex Assigned at Not on file Legal Sex Male 3:46 AM VALVE GRINDER Gender Identity Not on file Sexual Orientation Not on file documented as of this encounter Plan of Treatment Not on file documented as of this encounter Visit Diagnoses Not on filedocumented in this encounter
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
--- OUTSIDE RECORDS SUMMARY | 2024-10-17 15:16 | XMS_ITS | Encounter Summary ---
Author Organization [facility] Address [address] [place] [address] Care Team Providers Care Overseer [employer] Name Role Phone Unavailable Primary Care Provider Unavailabl e Encounter Details Date Type Department Care Team (Late st Contact Info) Description 03/16/2006 Outpatient Historical [facility] Adult Critical Care [address] [address] Venkatesh Yang MD Social History Tobacco Use Types Packs/Day Years Used Date Smoking Tobacco: Never Assessed Sex and Gender Information Value Date Recorded Sex Assigned at Not on file Legal Sex Male 3:46 AM PRODUCTION ASSOCIATE Gender Identity Not on file Sexual Orientation Not on file documented as of this encounter Plan of Treatment Not on file documented as of this encounter Visit Diagnoses Not on filedocumented in this encounter
--- OUTSIDE RECORDS SUMMARY | 2024-10-17 15:16 | XMS_ITS | Encounter Summary ---
Author Organization [facility] Address 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 Gender Identity Not on file [...] Organization Address [facility] Phone Number INTERFACE SYSTEM Refer [...] Organization Address [facility] Phone Number INTERFACE SYSTEM Refer [...] ORDERABLES Final Resu lt Performing Organization Address [facility] Phone Number INTERFACE SYSTEM Refer to clinic/hospital department * (ABNORMAL) POC GLUCOSE (01/08/2006 9:26 PM CDT) GLUCOSE POC 133(H) 65 - 109 mg/dL INTERFACE SYSTEM 01/08/2006 9:26 PM CDT José Fine MD POINT OF CARE TESTING Final Result Performing Organization Address [facility] Phone Number INTERFACE SYSTEM Refer to clinic/hospital department * (ABNORMAL) POC GLUCOSE (01/08/2006 5:25 PM CDT) GLUCOSE POC 125(H) 65 - 109 mg/dL INTERFACE SYSTEM 01/08/2006 5:25 PM CDT José Fine MD POINT OF CARE TESTING Final Result Performing Organization Address [facility] Phone Number INTERFACE SYSTEM Refer to clinic/hospital department * (ABNORMAL) POC GLUCOSE (01/08/2006 11:50 AM CDT) GLUCOSE POC 122(H) 65 - 109 mg/dL INTERFACE SYSTEM 01/08/2006 11:5 0 AM CDT us José Fine MD POINT OF CARE TESTING Final Result Performing Organization Address [facility] Phone Number INTERFACE SYSTEM Refer to clinic/hospital department * (ABNORMAL) POC GLUCOSE (01/08/2006 5:35 AM CDT) GLUCOSE POC 128(H) 65 - 109 mg/dL INTERFACE SYSTEM 01/08/2006 5:35 AM CDT us José Fine MD POINT OF CARE TESTING Final Result Performing Organization Address [facility] Phone Number INTERFACE SYSTEM Refer to clinic/hospital department * (ABNORMAL) POC GLUCOSE (01/07/2006 8:48 PM CDT) GLUCOSE POC 124(H) 65 - 109 mg/dL INTERFACE SYSTEM 01/07/2006 8:48 PM CDT us José Fine MD POINT OF CARE TESTING Final Result Performing Organization Address [facility] Phone Number INTERFACE SYSTEM Refer to clinic/hospital department * (ABNORMAL) POC GLUCOSE (01/07/2006 4:51 PM CDT) GLUCOSE POC 121(H) 65 - 109 mg/dL INTERFACE SYSTEM 01/07/2006 4:51 PM CDT us José Fine MD POINT OF CARE TESTING Final Result Performing Organization Address [facility] Phone Number INTERFACE SYSTEM Refer to clinic/hospital department * (ABNORMAL) POC GLUCOSE (01/07/2006 11:16 AM CDT) GLUCOSE POC 119(H) 65 - 109 mg/dL INTERFACE SYSTEM 01/07/2006 11:1 6 AM CDT us José Fine MD POINT OF CARE TESTING Final Result Performing Organization Address [facility] de Phone Number INTERFACE SYSTEM Refer to clinic/hospital department * (ABNORMAL) POC GLUCOSE (01/07/2006 6:24 AM CDT) GLUCOSE POC 114(H) 65 - 109 mg/dL INTERFACE SYSTEM 01/07/2006 6:24 AM CDT us José Fine MD POINT OF CARE TESTING Final Result Performing Organization Address [facility] de Phone Number INTERFACE SYSTEM [...] Organization Address [facility] de Phone Number INTERFACE SYSTEM [...] Performing Organization Address City/[facility] de Phone Number INTERFACE SYSTEM Refer to clinic/hospital department * PHOSPHORUS (01/07/2006 5:30 AM CDT) PHOSPHORUS 3.1 2.5 - 4.5 mg/dL INTERFACE SYSTEM 01/07/2006 5:30 AM CDT Terry Cole MD CHEMISTRY ORDERABLES Final Resul t Performing Organization Address [facility] Phone Number INTERFACE SYSTEM Refer to clinic/hospital department * MAGNESIUM LEVEL (01/07/2006 5:30 AM CDT) MAGNESIUM 2.3 1.5 - 2.5 mg/dL INTERFACE SYSTEM 01/07/2006 5:30 AM CDT Terry Cole MD CHEMISTRY ORDERABLES Final Resul t Performing Organization Address [facility] Phone Number INTERFACE SYSTEM Refer [...] Performing Organization Address City/[facility] de Phone Number INTERFACE SYSTEM Refer to clinic/hospital department * (ABNORMAL) POC GLUCOSE (01/07/2006 12:49 AM CDT) GLUCOSE POC 114(H) 65 - 109 mg/dL INTERFACE SYSTEM 01/07/2006 12:4 9 AM CDT us José Fine MD POINT OF CARE TESTING Final Result Performing Organization Address City/[facility] Co de Phone Number INTERFACE SYSTEM Refer to clinic/hospital department * (ABNORMAL) POC GLUCOSE (01/06/2006 5:40 PM CDT) COMMENT, GLU POC Notified RN INTERFACE SYSTEM GLUCOSE POC 128(H) 65 - 109 mg/dL INTERFACE SYSTEM 01/06/2006 5:40 PM CDT us José Fine MD POINT OF CARE TESTING Final Result Performing Organization Address [facility] Phone Number INTERFACE SYSTEM Refer to clinic/hospital department * (ABNORMAL) POC GLUCOSE (01/06/2006 11:43 AM CDT) COMMENT, GLU POC Notified RN INTERFACE SYSTEM GLUCOSE POC 120(H) 65 - 109 mg/dL INTERFACE SYSTEM 01/06/2006 11:4 3 AM CDT us José Fine MD POINT OF CARE TESTING Final Result Performing Organization Address [facility] de Phone Number INTERFACE SYSTEM Refer to clinic/hospital department * (ABNORMAL) POC GLUCOSE (01/06/2006 5:48 AM CDT) GLUCOSE POC 120(H) 65 - 109 mg/dL INTERFACE SYSTEM 01/06/2006 5:48 AM CDT us José Fine MD POINT OF CARE TESTING Final Result Performing Organization Address City/[facility] Co de Phone Number INTERFACE [...] ORDERABLES Final Resul t Performing Organization Address [facility] de Phone Number INTERFACE SYSTEM [...] CARE TESTING Final Result Performing Organization Address [facility] Phone Number INTERFACE SYSTEM Refer to clinic/hospital department * (ABNORMAL) POC GLUCOSE (01/05/2006 5:49 PM CDT) GLUCOSE POC 137(H) 65 - 109 mg/dL INTERFACE SYSTEM 01/05/2006 5:49 PM CDT José Fine MD POINT OF CARE TESTING Final Result Performing Organization Address [facility] Phone Number INTERFACE SYSTEM Refer to clinic/hospital department * (ABNORMAL) POC GLUCOSE (01/05/2006 11:57 AM CDT) GLUCOSE POC 133(H) 65 - 109 mg/dL INTERFACE SYSTEM 01/05/2006 11:5 7 AM CDT José Fine MD POINT OF CARE TESTING Final Result Performing Organization Address [facility] Phone Number INTERFACE SYSTEM Refer to clinic/hospital department * (ABNORMAL) POC GLUCOSE (01/05/2006 5:59 AM CDT) GLUCOSE POC 142(H) 65 - 109 mg/dL INTERFACE SYSTEM 01/05/2006 5:59 AM CDT José Fine MD POINT OF CARE TESTING Final Result Performing Organization Address [facility] Phone Number INTERFACE SYSTEM Refer [...] K/uL INTERFACE SYSTEM 01/05/2006 4:00 AM CDT [facility] [employer] HEMATOLOGY ORDERABLES Final Result Performing Organization Address [facility] Phone Number INTERFACE SYSTEM Refer [...] fL INTERFACE SYSTEM 01/05/2006 4:00 AM CDT [employer] HEMATOLOGY ORDERABLES Final Result Performing Organization Address [facility] Phone Number INTERFACE SYSTEM Refer [...] patients with mechanical heart valves or post [place]. Pediatric (12 years and under): 1.5 - [...] for unfractionated heparin 01/05/2006 4:00 AM CDT [employer] HEMATOLOGY ORDERABLES Final Result Performing Organization Address [facility] Phone Number INTERFACE SYSTEM Refer to clinic/hospital department * PHOSPHORUS (01/05/2006 4:00 AM CDT) PHOSPHORUS 2.9 2.5 - 4.5 mg/dL INTERFACE SYSTEM 01/05/2006 4:00 AM CDT Luis Eduardo [employer] CHEMISTRY ORDERABLES Final R esult Performing Organization Address [facility] Phone Number INTERFACE SYSTEM Refer to clinic/hospital department * MAGNESIUM LEVEL (01/05/2006 4:00 AM CDT) MAGNESIUM 2.2 1.5 - 2.5 mg/dL INTERFACE SYSTEM 01/05/2006 4:00 AM CDT [employer] CHEMISTRY ORDERABLES Final R esult Performing Organization Address [facility] Phone Number INTERFACE SYSTEM Refer [...] Organization Address [facility] Phone Number INTERFACE SYSTEM Refer to clinic/hospital department * (ABNORMAL) POC GLUCOSE (01/04/2006 11:41 PM CDT) GLUCOSE POC 140(H) 65 - 109 mg/dL INTERFACE SYSTEM 01/04/2006 11:4 1 PM CDT us José Fine MD POINT OF CARE TESTING Final Result Performing Organization Address [facility] Phone Number INTERFACE SYSTEM Refer to clinic/hospital department * (ABNORMAL) POC GLUCOSE (01/04/2006 5:43 PM CDT) GLUCOSE POC 156(H) 65 - 109 mg/dL INTERFACE SYSTEM 01/04/2006 5:43 PM CDT us José Fine MD POINT OF CARE TESTING Final Result Performing Organization Address [facility] Phone Number INTERFACE SYSTEM Refer to clinic/hospital department * (ABNORMAL) POC GLUCOSE (01/04/2006 11:37 AM CDT) GLUCOSE POC 175(H) 65 - 109 mg/dL INTERFACE SYSTEM 01/04/2006 11:3 7 AM CDT us José Fine MD POINT OF CARE TESTING Final Result Performing Organization Address [facility] Phone Number INTERFACE SYSTEM Refer to clinic/hospital department * (ABNORMAL) POC GLUCOSE (01/04/2006 6:11 AM CDT) GLUCOSE POC 183(H) 65 - 109 mg/dL INTERFACE SYSTEM 01/04/2006 6:11 AM CDT José Fine MD POINT OF CARE TESTING Final Result Performing Organization Address [facility] Phone Number INTERFACE SYSTEM Refer [...] ORDERABLES F inal Result Performing Organization Address [facility] Phone Number INTERFACE SYSTEM Refer [...] patients with mechanical heart valves or post [place]. Pediatric (12 years and under): 1.5 - [...] ORDERABLES F inal Result Performing Organization Address [facility] Phone Number INTERFACE SYSTEM Refer to clinic/hospital department * PHOSPHORUS (01/04/2006 4:20 AM CDT) PHOSPHORUS 2.5 2.5 - 4.5 mg/dL INTERFACE SYSTEM 01/04/2006 4:20 AM CDT us Rayray Wilcox MD CHEMISTRY ORDERABLES Fi nal Result Performing Organization Address [facility] Phone Number INTERFACE SYSTEM Refer to clinic/hospital department * MAGNESIUM LEVEL (01/04/2006 4:20 AM CDT) MAGNESIUM 2.0 1.5 - 2.5 mg/dL INTERFACE SYSTEM 01/04/2006 4:20 AM CDT Rayray Wilcox MD CHEMISTRY ORDERABLES Fi nal Result Performing Organization Address [facility] Phone Number INTERFACE SYSTEM Refer [...] INTERFACE SYSTEM 01/04/2006 4:20 AM CDT Madi Otriz MD CHEMISTRY ORDERABLES Final Re sult Performing Organization Address [facility]/Z[facility] de Phone Number INTERFACE SYSTEM Refer to clinic/hospital department * (ABNORMAL) POC GLUCOSE (01/04/2006 12:25 AM CDT) GLUCOSE POC 188(H) 65 - 109 mg/dL INTERFACE SYSTEM 01/04/2006 12:2 5 AM CDT José Fine MD POINT OF CARE TESTING Final Result Performing Organization Address [facility] de Phone Number INTERFACE SYSTEM Refer to clinic/hospital department * (ABNORMAL) POC GLUCOSE (01/03/2006 5:25 PM CDT) GLUCOSE POC 177(H) 65 - 109 mg/dL INTERFACE SYSTEM 01/03/2006 5:25 PM CDT José Fine MD POINT OF CARE TESTING Final Result Performing Organization Address [facility] de Phone Number INTERFACE SYSTEM Refer to clinic/hospital department * (ABNORMAL) POC GLUCOSE (01/03/2006 11:34 AM CDT) GLUCOSE POC 148(H) 65 - 109 mg/dL INTERFACE SYSTEM 01/03/2006 11:3 4 AM CDT José Fine MD POINT OF CARE TESTING Final Result Performing Organization Address [facility] de Phone Number INTERFACE SYSTEM [...] ORDERABLES F inal Result Performing Organization Address [facility] Phone Number INTERFACE SYSTEM Refer [...] ORDERABLES F inal Result Performing Organization Address [facility] Phone Number INTERFACE SYSTEM Refer [...] ORDERABLES F inal Result Performing Organization Address [facility] Phone Number INTERFACE SYSTEM Refer [...] patients with mechanical heart valves or post [place]. Pediatric (12 years and under): 1.5 - 3.0 Although the target range in children is not well established , INR values of 1.5 - 3.0 are recommended for most patients. Higher values have been used in children with prosthetic cardiac valves and hereditary clotting disorders. (<3 days) therapeutic ranges have not been established. 01/03/2006 10:4 6 AM CDT aRyray Wilcox MD HEMATOLOGY ORDERABLES F inal Result Performing Organization Address [facility] Number INTERFACE SYSTEM Refer to clinic/hospital department * PHOSPHORUS (01/03/2006 10:46 AM CDT) PHOSPHORUS 3.3 2.5 - 4.5 mg/dL INTERFACE SYSTEM 01/03/2006 10:4 6 AM CDT Rayray Wilcox MD CHEMISTRY ORDERABLES Fi nal Result Performing Organization Address [facility] Phone Number INTERFACE SYSTEM Refer to clinic/hospital department * MAGNESIUM LEVEL (01/03/2006 10:46 AM CDT) MAGNESIUM 1.8 1.5 - 2.5 mg/dL INTERFACE SYSTEM 01/03/2006 10:4 6 AM CDT Rayray Wilcox MD CHEMISTRY ORDERABLES Fi nal Result Performing Organization Address [facility] Phone Number INTERFACE SYSTEM Refer [...] CHEMISTRY ORDERABLES nal Result Performing Organization Address [facility] Phone Number INTERFACE SYSTEM Refer [...] patients with mechanical heart valves or post [place]. Pediatric (12 years and under): 1.5 - [...] drugs of abuse are available on the [facility] Intranet at: [email or web address] Select: Drugs of Abuse ? [facility] To inquire about any potential cross-reactivity [...] URINE ORDERABLES Final Result Performing Organization Address City/Main [...]
--- OUTSIDE RECORDS SUMMARY | 2024-10-17 15:16 | XMS_ITS | Encounter Summary ---
Author Organization [facility] Address [address] [place] [address] Care Team Providers Care Vessel Operator Name Role Phone Unavailable Primary Care Provider Unavailabl e Encounter Details Date Type Department Care Team (Late st Contact Info) Description 01/04/2006 Outpatient Historical [facility] Trauma and General Surgery [address] [place] [address] Jayden James MD [address] 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
--- OUTSIDE RECORDS SUMMARY | 2024-10-17 15:16 | XMS_ITS | Encounter Summary ---
Author Organization [facility] Address [address] [place] [address] Care Team Providers Care Program Management Intern Name Role Phone Unavailable Primary Care Provider Unavailabl e Encounter Details Date Type Department Care Team (Latest Contact Info) Description 03/15/2006 Inpatient Historical [facility] PATIENT IN A BED Yenny Hauser MD NO ADDRESS ON FILE Devan Agrawal MD 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 Gender Identity Not on file Sexual [...] ORDERABLES Final R esult Performing Organization Address City/[facility] Phone Number INTERFACE SYSTEM Refer to [...] ORDERABLES Final R esult Performing Organization Address City/[facility] Phone Number INTERFACE SYSTEM Refer to clinic/hospital department * MAGNESIUM LEVEL (03/19/2006 4:38 AM CDT) MAGNESIUM 1.7 1.5 - 2.5 mg/dL INTERFACE SYSTEM 03/19/2006 4:38 AM CDT Yenny Hauser MD CHEMISTRY ORDERABLES Final Re sult Performing Organization Address City/[facility] Co de Phone Number INTERFACE SYSTEM Refer [...] ORDERABLES Final Re sult Performing Organization Address City/[facility] Co de Phone Number INTERFACE SYSTEM Refer to clinic/hospital department * VANCOMYCIN LEVEL TROUGH (03/18/2006 11:30 AM CDT) Pathologist [facility] VANCOMYCIN, TROUGH 11.5 5.0 - 15.0 ug/mL INTERFACE SYSTEM Comment: Vancomycin Trough Toxic Level= >15.0 ug/mL 03/18/2006 11:3 0 AM CDT Yenny Hauser MD CHEMISTRY ORDERABLES Final Re sult Performing Organization Address [facility] Co de Phone Number INTERFACE SYSTEM Refer to clinic/hospital department * (ABNORMAL) CBC WITH DIFFERENTIAL (03/18/2006 9:08 AM CDT) Pathologist [facility] NEUTROPHILS 76(H) 45 - 70 % INTERFAC [...] ORDERABLES Final Res ult Performing Organization Address City/[facility] de Phone Number INTERFACE SYSTEM [...] ORDERABLES Final Resu lt Performing Organization Address [facility] Phone Number INTERFACE SYSTEM Refer to [...] HEMATOLOGY ORDERABLES Final Result Performing Organization Address [facility] Phone Number INTERFACE SYSTEM Refer to [...] HEMATOLOGY ORDERABLES Final Result Performing Organization Address [facility] Phone Number INTERFACE SYSTEM Refer to clinic/hospital department * (ABNORMAL) C-REACTIVE PROTEIN (03/17/2006 4:45 AM CDT) CRP 2.4(H) 0.0 - 0.8 mg/dL INTERFACE SYSTEM 03/17/2006 4:45 AM CDT Historical Provider CHEMISTRY ORDERABLES Final R esult Performing Organization Address [facility] Phone Number INTERFACE SYSTEM Refer to [...] ORDERABLES Final R esult Performing Organization Address City/[facility] Phone Number INTERFACE SYSTEM Refer to clinic/hospital department * (ABNORMAL) ACETONE QUALITATIVE (03/16/2006 6:30 PM CDT) ACETONE QUAL 2+ (30 mg/dL)(A) Neg (<10 mg/dL) INTERFACE SYSTEM 03/16/2006 6:30 PM CDT us Historical Provider CHEMISTRY ORDERABLES Final R esult Performing Organization Address [facility] Phone Number INTERFACE SYSTEM Refer to clinic/hospital department * LACTIC ACID (03/16/2006 6:30 PM CDT) LACTIC ACID 1.0 0.5 - 2.2 mmol/L INTERFACE SYSTEM 03/16/2006 6:30 PM CDT us Historical Provider CHEMISTRY ORDERABLES Final R esult Performing Organization Address [facility] Phone Number INTERFACE SYSTEM Refer to [...] ORDERABLES Final Resu lt Performing Organization Address [facility] Phone Number INTERFACE SYSTEM Refer to [...] patients with mechanical heart valves or post [place]. Pediatric (12 years and under): 1.5 - [...] HEMATOLOGY ORDERABLES Final Result Performing Organization Address City/[facility] Phone Number INTERFACE SYSTEM Refer to [...] ORDERABLES Final R esult Performing Organization Address City/[facility] de Phone Number INTERFACE SYSTEM [...] Res ult Performing Organization Address [facility] Phone Number INTERFACE SYSTEM Refer to [...] Res ult Performing Organization Address [facility] de Phone Number INTERFACE SYSTEM [...]
--- OUTSIDE RECORDS SUMMARY | 2024-10-17 15:16 | XMS_ITS | Encounter Summary ---
Author Organization [facility] Address [address] [place] [address] Care Team Providers Care Exceptional Student Education Aide Name Role Phone Unavailable Primary Care Provider Unavailabl e Encounter Details Date Type Department Care Team (Late st Contact Info) Description 01/06/2006 Outpatient Historical [facility] Trauma and General Surgery [address] [address] [facility] [place] [address] Jayden James MD [address] [facility] [address] [facility] [address] [facility] [place] [address] Social History Tobacco Use Types Packs/Day Years Used Date Smoking Tobacco: Never Assessed Sex and Gender Information Value Date Recorded Sex Assigned at Not on file 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
--- OUTSIDE RECORDS SUMMARY | 2024-10-17 15:16 | XMS_ITS | Encounter Summary ---
Author Organization [facility] Address 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
--- OUTSIDE RECORDS SUMMARY | 2024-10-17 15:16 | XMS_ITS | Encounter Summary ---
Author Organization [facility] Address [address] [place] [address] Care Team Providers Care Curing Press Operator Name Role Phone Unavailable Primary Care Provider Unavailabl e Encounter Details Date Type Department Care Team (Late st Contact Info) Description 01/11/2006 Outpatient Historical [facility] Trauma and General Surgery [address] [facility] [address] [id number] [place] [address] [place] [address] Social History Tobacco Use Types Packs/Day Years Used Date Smoking Tobacco: Never Assessed Sex and Gender Information Value Date Recorded Sex Assigned at Not on file 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
--- OUTSIDE RECORDS SUMMARY | 2024-10-17 15:16 | XMS_ITS | Clinical Summary ---
Author Organization [facility] Administrative Offices Address [address] [place] [address] Care Team Providers Care Type Rolling Machine Operator Name Role Phone Unavailable Primary Care [...] daily. 06/14/20 Active naloxone (NARCAN) 4 mg/spray [place], Non-Aerosol Administer 4 mg in each nostril [...] (04/21/2023): Last Assessment & Plan: H/o L PORTABLE PINCH RIVETER infarct 2019, continue asa/statin Urinary tract infection [...] to reach son and obtained collateral from [facility] - [facility] Head today. - [...] oxycodone prn. Baclofen pump rx'd by the [facility]. Iron deficiency anemia, unspecified 10/26/2012 [...] Plan: Uses wheelchair at baseline. Resides at [facility] [...] on file Legal Sex Male 3:[address] DEPART[address] Gender Identity Not on file Sexual Orientation [...] ZOSTER VACCINE Completed 12/11/2020, 10/10/2020 Insurance MEDICAID [place] MEDICARE MANAGED CARE
--- OUTSIDE RECORDS SUMMARY | 2024-10-17 15:16 | XMS_ITS | Encounter Summary ---
Author Organization [facility] Address [address] [place] [address] Care Team Providers Care Piercing Machine Operator Name Role Phone Unavailable Primary Care Provider Unavailabl e Encounter Details Date Type Department Care Team (Late st Contact Info) Description 03/14/2006 Outpatient Historical [facility] Adult Hospitalists [facility] [address] [place] [address] Devan Agrawal MD [address] [facility] 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
--- OUTSIDE RECORDS SUMMARY | 2024-10-17 15:16 | XMS_ITS | Encounter Summary ---
Author Organization [facility] Address [address] [place] [address] Care Team Providers Care Bilingual Branch Manager Name Role Phone Unavailable Primary Care Provider Unavailabl e Encounter Details Date Type Department Care Team (Late st Contact Info) Description 05/13/2019 Lab Requisition [facility] Services [address] [place] [address] [facility], External Provider [address] [place] [address] Other fatigue Social History Tobacco Use Types Packs/Day Years Used Date Smoking Tobacco: Never Assessed Sex and Gender Information Value Date Recorded Sex Assigned at Not on file Legal Sex Male 3:46 AM PATENT ENGINEER Gender Identity Not on file Sexual Orientation Not on file documented as of this encounter Plan of Treatment Not on file documented as of this encounter Procedures Procedure Name Priority Date/Time Associated Diagnosis Comments CBC WITH DIFFERENTIAL Stat 05/13/2019 4:50 PM PATENT ENGINEER Other fatigue BASIC METABOLIC PANEL Stat 05/13/2019 4:50 PM PATENT ENGINEER Other fatigue documented in this encounter Results * (ABNORMAL) CBC WITH DIFFERENTIAL (05/13/2019 4:50 PM PATENT ENGINEER) [facility] WBC 6.1 4.5 - 10.5 K/uL 05/13/2019 9:52 PM PATENT ENGINEER [facility] RBC 4.04(L) 4.50 - 5.40 M/uL 05/13/2019 9:52 PM PATENT ENGINEER [facility] LAB[facility]ORY [facility] HEMOGLOBIN 12.1(L) 13.6 - 16.5 g/dL 05/13/2019 9:52 PM PATENT ENGINEER [facility] HEMATOCRIT 37.1(L) 40.0 - 48.0 % 05/13/2019 9:52 PM [facility] MCV 91.7 82.0 - 99.0 fL 05/13/2019 9:52 PM [facility] MCH 30.0 27.8 - 34.5 pg 05/13/2019 9:52 PM [facility] MCHC 32.7 32.5 - 35.5 g/dL 05/13/2019 9:52 PM [facility] RDW 14.9(H) 11.5 - 14.5 % 05/13/2019 9:52 PM [facility] PLATELETS 162 160 - 420 K/uL 05/13/2019 9:52 PM [facility] [employer] [facility] MPV 9.8 8.7 - 12.7 fL 05/13/2019 9:52 PM [facility] NEUTROPHILS 70 45 - 70 % 05/13/2019 9:52 PM [facility] LYMPHOCYTES 16 16 - 45 % 05/13/2019 9:52 PM [facility] MONOCYTES 10 3 - 13 % 05/13/2019 9:52 PM [facility] EOSINOPHILS 4 0 - 7 % 05/13/2019 9:52 PM [facility] BASOPHILS 1 0 - 2 % 05/13/2019 9:52 PM [facility] [employer] [facility] NEUTROPHIL ABSOLUTE 4.20 1.90 - 7.00 K/uL 05/13/2019 9:52 PM [facility] [employer] [facility] LYMPHOCYTE ABSOLUTE 0.90 K/uL 05/13/2019 9:52 PM [facility] MONOCYTE ABSOLUTE 0.60 K/uL 05/13/2019 9:52 PM [facility] EOSINOPHIL ABSOLUTE 0.30 0.00 - 0.70 K/uL 05/13/2019 9:52 PM [facility] BASOPHILS ABSOLUTE 0.00 K/uL 05/13/2019 9:52 PM [facility] [employer] [facility] Blood BLOOD SPECIMEN / Unknown Collection / Unknown 05/13/2019 4:50 PM PATENT ENGINEER 05/13/2019 9:42 PM PATENT ENGINEER us External Provider [facility] HEMATOLOGY ORDERABLES Fin al Result [facility] [employer] [facility] LESTER# [id number] [place] [address] * (ABNORMAL) BASIC METABOLIC PANEL (05/13/2019 4:50 PM PATENT ENGINEER) SODIUM 143 136 - 145 mmol/L 05/13/2019 10:11 PM [facility] [employer] [facility] POTASSIUM 4.2 3.4 - 5.1 mmol/L 05/13/2019 10:11 PM [facility] [employer] [facility] CHLORIDE 104 98 - 107 mmol/L 05/13/2019 10:11 PM [facility] CO2 27 22 - 29 mmol/L 05/13/2019 10:11 PM [facility] CALCIUM 8.5(L) 8.6 - 10.4 mg/dL 05/13/2019 10:11 PM [facility] BUN 24(H) 6 - 20 mg/dL 05/13/2019 10:11 PM [facility] CREATININE 1.09 0.70 - 1.20 mg/dL 05/13/2019 10:11 PM [facility] Comment:The GFR result is no t clinically significant on patients <18 or >70 years of age. GLUCOSE 96 74 - 99 mg/dL 05/13/2019 10:11 PM [facility] [employer] [facility] GFR >60 mL/min/1.7 3 sq meter 05/13/2019 10:11 PM [facility] [employer] [facility] Comment: eGFR has not been [...] mL/min/1.7 3 sq meter 05/13/2019 10:11 PM PATENT ENGINEER [facility] ANION GAP 12 8 - 16 mmol/L 05/13/2019 10:11 PM PATENT ENGINEER [facility] Blood BLOOD SPECIMEN / Unknown Collection / Unknown 05/13/2019 4:50 PM PATENT ENGINEER 05/13/2019 9:42 PM PATENT ENGINEER External Provider [facility] CHEMISTRY ORDERABLES Johanne l Result [facility] LABOR[facility]ORY [facility] CLIA# [id number] [place] [address] documented in this encounter Visit Diagnoses Diagnosis Other fatigue documented in this encounter
--- OUTSIDE RECORDS SUMMARY | 2024-10-17 15:16 | XMS_ITS | Encounter Summary ---
Author Organization [employer] Address [address] [place] [address] Care Team Providers Care Producer Director Name Role Phone Unavailable Primary Care Provider Unavailabl e Encounter Details Date Type Department Care Team (Latest Contact Info) Description 01/13/2006 Inpatient Historical HIS [place] [address] [place] [address] Other Specified Rehabilitation Procedure (Primary Dx) Social History Tobacco Use Types Packs/Day Years Used Date Smoking Tobacco: Never Assessed Sex and Gender Information Value Date Recorded Sex Assigned at Not on file Legal Sex Male 3:46 AM [employer] Gender Identity Not on file Sexual Orientation [...] ABG ORDERABLES Final Result Performing Organization Address [facility] Phone Number INTERFACE SYSTEM Refer [...] ORDERABLES Final Re sult Performing Organization Address [facility] Phone Number INTERFACE SYSTEM Refer [...] fL INTERFACE SYSTEM 03/14/2006 4:37 AM CDT [facility] Final Re sult Performing Organization Address [facility] Phone Number INTERFACE SYSTEM Refer to clinic/hospital department * MAGNESIUM LEVEL (03/14/2006 4:37 AM CDT) MAGNESIUM 2.0 1.5 - 2.5 mg/dL INTERFACE SYSTEM 03/14/2006 4:37 AM CDT Rita Esqueda MD CHEMISTRY ORDERABLES Final Res ult Performing Organization Address [facility] Phone Number INTERFACE SYSTEM Refer [...] mmol/L INTERFACE SYSTEM 03/14/2006 4:37 AM CDT [facility] ORDER[facility]LES Final Res ult Performing Organization Address [facility] Phone Number INTERFACE SYSTEM Refer to clinic/hospital department * (ABNORMAL) C-REACTIVE PROTEIN (03/14/2006 4:37 AM CDT) CRP 4.1(H) 0.0 - 0.8 mg/dL INTERFACE SYSTEM 03/14/2006 4:37 AM CDT [facility] CHEMISTRY ORDERABLES Final Res ult Performing Organization Address [facility] Phone Number INTERFACE SYSTEM Refer to clinic/hospital department * VANCOMYCIN LEVEL TROUGH (03/13/2006 1:02 PM CDT) VANCOMYCIN, TROUGH 8.7 5.0 - 15.0 ug/mL INTERFACE SYSTEM Comment: Vancomycin Trough Toxic Level= >15.0 ug/mL 03/13/2006 1:02 PM CDT [facility] ORDERABLES Final Res ult Performing Organization Address [facility] Phone Number INTERFACE SYSTEM Refer [...] ORDERABLES Final R esult Performing Organization Address [facility] Phone Number INTERFACE SYSTEM Refer to clinic/hospital department * C-REACTIVE PROTEIN, CSF (03/12/2006 3:10 PM CDT) CRP, CSF 0.15 mg/dL INTERFACE SYSTEM Comment: Note: New methodology using CSF CRP (highly sensitive) assay is effective 12/11/03. No reference range has been established for CSF CRP. 03/12/2006 3:10 PM CDT Alexa Dillon MD BODY FLUIDS AND STOOLS Final Result Performing Organization Address [facility] Phone Number INTERFACE SYSTEM Refer [...] AND STOOLS Final Result Performing Organization Address [facility] Phone Number INTERFACE SYSTEM Refer to clinic/hospital department * (ABNORMAL) TOTAL PROTEIN, CSF (03/12/2006 3:10 PM CDT) PROTEIN, CSF 365(H) 15 - 45 mg/dL INTERFACE SYSTEM Comment: New CSF Protein Quantitative Methodology - Note New Reference Range. bloody sample 03/12/2006 3:10 PM CDT Aman Gottlieb DO BODY FLUIDS AND STOOLS Final Result Performing Organization Address [facility] Phone Number INTERFACE SYSTEM Refer [...] PM and read back verified. RBC, CSF 764085(H) <=0 /uL INTERFACE SYSTEM 03/12/2006 3:10 PM CDT us Aman Gottlieb DO BODY FLUIDS AND STOOLS Final Result Performing Organization Address [facility] de Phone Number INTERFACE [...] HEMATOLOGY ORDERABLES Final Result Performing Organization Address [facility] de Phone Number INTERFACE [...] HEMATOLOGY ORDERABLES Final Result Performing Organization Address [facility] Phone Number INTERFACE SYSTEM Refer [...] ORDERABLES Final R esult Performing Organization Address [facility] de Phone Number INTERFACE [...] HEMATOLOGY ORDERABLES Final Result Performing Organization Address City/[facility] de Phone Number INTERFACE [...] HEMATOLOGY ORDERABLES Final Result Performing Organization Address City/[facility] Co de Phone Number INTERFACE SYSTEM Refer to clinic/hospital department * (ABNORMAL) C-REACTIVE PROTEIN (03/11/2006 4:40 AM CDT) CRP 6.5(H) 0.0 - 0.8 mg/dL INTERFACE SYSTEM 03/11/2006 4:40 AM CDT Sushil Arroyo MD CHEMISTRY ORDERABLES Final R [facility] Performing Organization Address [facility] Phone Number INTERFACE SYSTEM Refer [...] Sushil Arroyo MD CHEMISTRY ORDERABLES [facility] Performing Organization Address [facility] Phone Number INTERFACE SYSTEM Refer [...] patients with mechanical heart valves or post [place] Pediatric (12 years and under): 1.5 - [...] HEMATOLOGY ORDERABLES Final Result Performing Organization Address [facility] Phone Number INTERFACE SYSTEM Refer [...] ORDERABLES Final Resul t Performing Organization Address [facility] de Phone Number INTERFACE [...] HEMATOLOGY ORDERABLES Final Result Performing Organization Address City/[facility] de Phone Number INTERFACE [...] patients with mechanical heart valves or post [place] Pediatric (12 years and under): 1.5 - [...] HEMATOLOGY ORDERABLES Final Result Performing Organization Address [facility] de Phone Number INTERFACE [...] patients with mechanical heart valves or post [place] Pediatric (12 years and under): 1.5 - [...] ORDERABLES Final Res ult Performing Organization Address City/[facility] de Phone Number INTERFACE [...] ORDERABLES Final Res ult Performing Organization Address [facility] Phone Number INTERFACE SYSTEM Refer [...] ORDERABLES Final Res ult Performing Organization Address [facility] Phone Number INTERFACE SYSTEM Refer to clinic/hospital department * (ABNORMAL) C-REACTIVE PROTEIN (03/08/2006 6:34 PM CDT) CRP 5.2(H) 0.0 - 0.8 mg/dL INTERFACE SYSTEM 03/08/2006 6:34 PM CDT us Keenan Mandujano MD CHEMISTRY ORDERABLES Final Resu lt Performing Organization Address [facility] Co ne Phone Number INTERFACE SYSTEM Refer to clinic/hospital [...] URINE ORDERABLES Final Result Performing Organization Address [facility] Phone Number INTERFACE SYSTEM Refer [...] patients with mechanical heart valves or post [place] Pediatric (12 years and under): 1.5 - [...] HEMATOLOGY ORDERABLES Final Result Performing Organization Address [facility] Phone Number INTERFACE SYSTEM Refer [...] ORDERABLES Final Resul t Performing Organization Address [facility] Phone Number INTERFACE SYSTEM Refer [...] HEMATOLOGY ORDERABLES Final Result Performing Organization Address [facility] Phone Number INTERFACE SYSTEM Refer [...] HEMATOLOGY ORDERABLES Final Result Performing Organization Address City/[facility] de Phone Number INTERFACE [...] ORDERABLES Final R esult Performing Organization Address City/[facility] de Phone Number INTERFACE [...] patients with mechanical heart valves or post [place] Pediatric (12 years and under): 1.5 - [...] HEMATOLOGY ORDERABLES Final Result Performing Organization Address [facility] Phone Number INTERFACE SYSTEM Refer [...] URINE ORDERABLES Final Result Performing Organization Address [facility] Phone Number INTERFACE SYSTEM Refer [...] HEMATOLOGY ORDERABLES Final Result Performing Organization Address [facility] Phone Number INTERFACE SYSTEM Refer [...] HEMATOLOGY ORDERABLES Final Result Performing Organization Address [facility] Phone Number INTERFACE SYSTEM Refer [...] ORDERABLES Final R esult Performing Organization Address [facility] de Phone Number INTERFACE [...] HEMATOLOGY ORDERABLES Final Result Performing Organization Address [facility] Phone Number INTERFACE SYSTEM Refer [...] HEMATOLOGY ORDERABLES Final Result Performing Organization Address City/[facility] Co de Phone Number INTERFACE SYSTEM Refer [...] INTERFACE SYSTEM 02/26/2006 12:4 4 PM CDT [facility] HEMATOLOGY ORDERABLES Final Re sult Performing Organization Address City/[facility] de Phone Number INTERFACE SYSTEM Refer to clinic/hospital department * C-REACTIVE PROTEIN (02/26/2006 12:44 PM CDT) CRP 0.2 0.0 - 0.8 mg/dL INTERFACE SYSTEM 02/26/2006 12:4 4 PM CDT [facility] CHEMISTRY ORDERABLES Final Res ult Performing Organization Address [facility] de Phone Number INTERFACE [...] ORDERABLES Final Res ult Performing Organization Address [facility] Phone Number INTERFACE SYSTEM Refer [...] ORDERABLES Final Resul t Performing Organization Address [facility] Phone Number INTERFACE SYSTEM Refer [...] K/uL INTERFACE SYSTEM 02/25/2006 4:36 AM CDT [facility] HEMATOLOGY ORDERABLES Final Re sult Performing Organization Address [facility] de Phone Number INTERFACE [...] fL INTERFACE SYSTEM 02/25/2006 4:36 AM CDT [facility] HEMATOLOGY ORDERABLES Final Re sult Performing Organization Address [facility] Phone Number INTERFACE SYSTEM Refer [...] mmol/L INTERFACE SYSTEM 02/25/2006 4:36 AM CDT [facility] Zaid CHEMISTRY ORDERABLES Final Res ult Performing Organization Address [facility] Phone Number INTERFACE SYSTEM Refer to clinic/hospital department * C-REACTIVE PROTEIN (02/25/2006 4:36 AM CDT) CRP 0.2 0.0 - 0.8 mg/dL INTERFACE SYSTEM 02/25/2006 4:36 AM CDT [facility] CHEMISTRY ORDERABLES Final Res ult Performing Organization Address [facility] Phone Number INTERFACE SYSTEM Refer [...] URINE ORDERABLES Final Result Performing Organization Address [facility] Phone Number INTERFACE SYSTEM Refer [...] patients with mechanical heart valves or post [place] Pediatric (12 years and under): 1.5 - [...] patients with mechanical heart valves or [place] Pediatric (12 years and under): 1.5 - [...] HEMATOLOGY ORDERABLES Final Result Performing Organization Address [facility] Phone Number INTERFACE SYSTEM Refer to [...] patients with mechanical heart valves or post [place] Pediatric (12 years and under): 1.5 - [...] HEMATOLOGY ORDERABLES Final Result Performing Organization Address [facility] Phone Number INTERFACE SYSTEM Refer [...] ORDERABLES Final Resul t Performing Organization Address [facility] Phone Number INTERFACE SYSTEM Refer [...] patients with mechanical heart valves or post [place] Pediatric (12 years and under): 1.5 - [...] HEMATOLOGY ORDERABLES Final Result Performing Organization Address City/[facility] Phone Number INTERFACE SYSTEM Refer [...] patients with mechanical heart valves or post [place] Pediatric (12 years and under): 1.5 - [...] HEMATOLOGY ORDERABLES Final Result Performing Organization Address [facility] de Phone Number INTERFACE [...] ORDERABLES Final Resul t Performing Organization Address [facility] de Phone Number INTERFACE [...] patients with mechanical heart valves or post [place] Pediatric (12 years and under): 1.5 - [...] ORDERABLES Final Res ult Performing Organization Address [facility] Phone Number INTERFACE SYSTEM Refer to [...] patients with mechanical heart valves or post [place] Pediatric (12 years and under): 1.5 - [...] ORDERABLES Final Res ult Performing Organization Address [facility] Phone Number INTERFACE SYSTEM Refer [...] patients with mechanical heart valves or [place] Pediatric (12 years and under): 1.5 - [...] HEMATOLOGY ORDERABLES Final Result Performing Organization Address [facility] de Phone Number INTERFACE [...] ORDERABLES Final Res ult Performing Organization Address [facility] Co de Phone Number INTERFACE SYSTEM Refer [...] ORDERABLES Final Res ult Performing Organization Address City/[facility] Co de Phone Number INTERFACE SYSTEM Refer [...] patients with mechanical heart valves or post [place] Pediatric (12 years and under): 1.5 - [...] HEMATOLOGY ORDERABLES Final Result Performing Organization Address City/[facility]/ZIP Co de Phone Number INTERFACE SYSTEM [...] ORDERABLES Final Resul t Performing Organization Address [facility] Phone Number INTERFACE SYSTEM Refer [...] HEMATOLOGY ORDERABLES Final Result Performing Organization Address [facility] Phone Number INTERFACE SYSTEM Refer [...] HEMATOLOGY ORDERABLES Final Result Performing Organization Address [facility] de Phone Number INTERFACE [...] ORDERABLES Final R esult Performing Organization Address City/[facility]/ZIP Co de Phone Number INTERFACE SYSTEM [...] patients with mechanical heart valves or post [place] Pediatric (12 years and under): 1.5 - [...] HEMATOLOGY ORDERABLES Final Result Performing Organization Address City/State/[facility] Co de Phone Number INTERFACE SYSTEM Refer [...] patients with mechanical heart valves or post [place] Pediatric (12 years and under): 1.5 - [...] ORDERABLES Final Resu lt Performing Organization Address City/[facility] de Phone Number INTERFACE [...] ORDERABLES Final Res ult Performing Organization Address [facility] de Phone Number INTERFACE [...] ORDERABLES Final Res ult Performing Organization Address [facility] de Phone Number INTERFACE [...] patients with mechanical heart valves or post [place] Pediatric (12 years and under): 1.5 - [...] ORDERABLES Final Res ult Performing Organization Address [facility] Phone Number INTERFACE SYSTEM Refer [...] patients with mechanical heart valves or [place] Pediatric (12 years and under): 1.5 - [...] ORDERABLES Final Res t Performing Organization Address [facility] Phone Number INTERFACE SYSTEM Refer [...] patients with mechanical heart valves or post [place] Pediatric (12 years and under): 1.5 - 3.0 Although the target range in children is not well established , INR values of 1.5 - 3.0 are recommended for most patients. Higher values have been used in children with prosthetic cardiac valves and hereditary clotting disorders. (<3 days) therapeutic ranges have not been established. 01/28/2006 4:52 AM CDT Result [facility] Keenan Mandujano MD HEMATOLOGY ORDERABLES Final [facility] Performing Organization Address [facility] Phone Number INTERFACE SYSTEM Refer [...] patients with mechanical heart valves or post [place] Pediatric (12 years and under): 1.5 - [...] ORDERABLES Final Res ult Performing Organization Address [facility] Phone Number INTERFACE SYSTEM Refer [...] patients with mechanical heart valves or post [place] Pediatric (12 years and under): 1.5 - [...] ORDERABLES Final Res ult Performing Organization Address [facility] Phone Number INTERFACE SYSTEM Refer [...] patients with mechanical heart valves or post [place] Pediatric (12 years and under): 1.5 - [...] ORDERABLES Final Res ult Performing Organization Address [facility] Phone Number INTERFACE SYSTEM Refer to [...] patients with mechanical heart valves or post [place]. Pediatric (12 years and under): 1.5 - 3.0 Although the target range in children is not well established , INR values of 1.5 - 3.0 are recommended for most patients. Higher values have been used in children with prosthetic cardiac valves and hereditary clotting disorders. (<3 days) therapeutic ranges have not been established. 01/23/2006 4:57 AM CDT Result [facility] Keenan Mandujano MD HEMATOLOGY ORDERABLES Final Res ult Performing Organization Address [facility] Phone Number INTERFACE SYSTEM Refer [...] patients with mechanical heart valves or post [place] Pediatric (12 years and under): 1.5 - [...] ORDERABLES Final Res ult Performing Organization Address [facility] Phone Number INTERFACE SYSTEM Refer [...] ORDERABLES Final Resu lt Performing Organization Address [facility] Phone Number INTERFACE SYSTEM Refer [...] patients with mechanical heart valves or [place] Pediatric (12 years and under): 1.5 - [...] ORDERABLES Final Res ult Performing Organization Address [facility] Phone Number INTERFACE SYSTEM Refer [...] patients with mechanical heart valves or [place] Pediatric (12 years and under): 1.5 - [...] ORDERABLES Final Resu lt Performing Organization Address [facility] Phone Number INTERFACE SYSTEM Refer [...] patients with mechanical heart valves or [place] Pediatric (12 years and under): 1.5 - [...] ORDERABLES Final Resu lt Performing Organization Address City/[facility] Co de Phone Number INTERFACE SYSTEM Refer [...] patients with mechanical heart valves or post [place] Pediatric (12 years and under): 1.5 - [...] HEMATOLOGY ORDERABLES Final Result Performing Organization Address City/[facility] Co de Phone Number INTERFACE SYSTEM Refer [...] ORDERABLES Final R esult Performing Organization Address City/[facility] Co de Phone Number INTERFACE SYSTEM Refer [...] ORDERABLES Final Resul t Performing Organization Address City/[facility]/ZIP Co de Phone Number INTERFACE SYSTEM Refer to clinic/hospital department documented in this encounter Visit Diagnoses Diagnosis Other specified rehabilitation procedure(V57.89)- Primary Other specified rehabilitation procedure documented in this encounter
--- OUTSIDE RECORDS SUMMARY | 2024-10-17 15:16 | XMS_ITS | Encounter Summary ---
Author Organization [employer] Address 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 Gender Identity Not on file Sexual Orientation [...] ORDERABLES Final Re sult Performing Organization Address [facility] Phone Number INTERFACE SYSTEM Refer to clinic/hospital department * C-REACTIVE PROTEIN (04/05/2006 5:15 AM CDT) Pathologist [facility] CRP 0.2 0.0 - 0.8 mg/dL INTERFACE SYSTEM 04/05/2006 5:15 AM CDT [facility] CHEMISTRY ORDERABLES Final Res ult Performing Organization Address [facility] Phone Number INTERFACE SYSTEM Refer to clinic/hospital department * (ABNORMAL) VANCOMYCIN LEVEL TROUGH (03/31/2006 11:15 AM CDT) Pathologist [facility] VANCOMYCIN, TROUGH 18.3(AA) 5.0 - 15.0 ug/mL INTERFACE SYSTEM Comment: Vancomycin Trough Toxic Level= >15.0 ug/mL Results called to Amy_ at 03/31/2006 12:05 PM and read back verified. 03/31/2006 11:1 5 AM CDT Sushil Arroyo MD CHEMISTRY ORDERABLES Final R esult Performing Organization Address [facility] Phone Number INTERFACE SYSTEM Refer to clinic/hospital department * (ABNORMAL) CBC WITH DIFFERENTIAL (03/29/2006 5:15 AM CDT) Pathologist [facility] NEUTROPHILS 64 45 - 70 % INTERFAC [...] ORDERABLES Final Res ult Performing Organization Address [facility] Phone Number INTERFACE SYSTEM Refer [...] ORDERABLES Final Res ult Performing Organization Address [facility] Number INTERFACE SYSTEM Refer to clinic/hospital department * C-REACTIVE PROTEIN (03/29/2006 5:15 AM CDT) CRP 0.3 0.0 - 0.8 mg/dL INTERFACE SYSTEM 03/29/2006 5:1 5 AM CDT us Keenan Mandujano MD CHEMISTRY ORDERABLES Final Resu lt Performing Organization Address [facility] Phone Number INTERFACE SYSTEM Refer [...] ORDERABLES Final Resu lt Performing Organization Address [facility] Phone Number INTERFACE SYSTEM Refer [...] ORDERABLES Final Re sult Performing Organization Address [facility] Phone Number INTERFACE SYSTEM Refer [...] INTERFACE SYSTEM 03/24/2006 12:1 0 PM CDT [employer] [facility] HEMATOLOGY ORDERABLES Final Re sult Performing Organization Address [facility] Phone Number INTERFACE SYSTEM Refer to clinic/hospital department * VANCOMYCIN LEVEL TROUGH (03/24/2006 12:10 PM CDT) VANCOMYCIN, TROUGH 11.3 5.0 - 15.0 ug/mL INTERFACE SYSTEM Comment: Vancomycin Trough Toxic Level= >15.0 ug/mL 03/24/2006 12:1 0 PM CDT [employer] Zaid CHEMISTRY ORDERABLES Final Res ult Performing Organization Address [facility] Phone Number INTERFACE SYSTEM Refer to clinic/hospital department * C-REACTIVE PROTEIN (03/24/2006 12:10 PM CDT) CRP 0.6 0.0 - 0.8 mg/dL INTERFACE SYSTEM 03/24/2006 12:1 0 PM CDT [employer] Zaid CHEMISTRY ORDERABLES Final Res ult Performing Organization Address [facility] Phone Number INTERFACE SYSTEM Refer [...] ORDERABLES Final Res ult Performing Organization Address [facility] Co de Phone Number [...] INTERFACE SYSTEM 03/23/2006 11:3 0 AM CDT [employer] HEMATOLOGY ORDERABLES Final Re sult Performing Organization Address [facility] de Phone Number INTERFACE SYSTEM Refer to clinic/hospital department * (ABNORMAL) CBC WITH DIFFERENTIAL (03/23/2006 11:30 AM CDT) Pathologist [facility] WBC 6.1 4.0 - 9.8 K/uL INTERFACE [...] INTERFACE SYSTEM 03/23/2006 11:3 0 AM CDT [employer] HEMATOLOGY ORDERABLES Final Re sult Performing Organization Address [facility] de Phone Number INTERFACE SYSTEM Refer to clinic/hospital department * VANCOMYCIN LEVEL TROUGH (03/23/2006 11:30 AM CDT) VANCOMYCIN, TROUGH 6.2 5.0 - 15.0 ug/mL INTERFACE SYSTEM Comment: Vancomycin Trough Toxic Level= >15.0 ug/mL 03/23/2006 11:3 0 AM CDT [employer] Zaid CHEMISTRY ORDERABLES Final Res ult Performing Organization Address [facility] Phone Number INTERFACE SYSTEM Refer to clinic/hospital department * (ABNORMAL) C-REACTIVE PROTEIN (03/23/2006 11:30 AM CDT) CRP 1.0(H) 0.0 - 0.8 mg/dL INTERFACE SYSTEM 03/23/2006 11:3 0 AM CDT us [facility] CHEMISTRY ORDERABLES Final Res ult Performing Organization Address [facility] Phone Number INTERFACE SYSTEM Refer [...] INTERFACE SYSTEM 03/23/2006 11:3 0 AM CDT [facility] CHEMISTRY ORDERABLES Final Res ult Performing Organization Address [facility] Phone Number INTERFACE SYSTEM Refer [...] ORDERABLES Final R esult Performing Organization Address [facility] Phone Number INTERFACE SYSTEM Refer [...] /HPF INTERFACE SYSTEM 03/22/2006 8:30 PM CDT [employer] Zaid URINE ORDERABLES Final Result Performing Organization Address [facility] Phone Number INTERFACE SYSTEM Refer [...] CHEMISTRY ORDERABLES Final R [facility] Performing Organization Address [facility] de Phone [...] ORDERABLES Final R esult Performing Organization Address [facility] Co de Phone Number [...] HEMATOLOGY ORDERABLES Final Result Performing Organization Address [facility] Phone Number INTERFACE SYSTEM Refer [...] HEMATOLOGY ORDERABLES Final Result Performing Organization Address [facility] Phone Number INTERFACE SYSTEM Refer [...] ORDERABLES Final R esult Performing Organization Address [facility] Phone Number INTERFACE SYSTEM Refer [...] ORDERABLES Final Resul t Performing Organization Address [facility] Phone Number INTERFACE SYSTEM Refer to clinic/hospital department documented in this encounter Visit Diagnoses Diagnosis Other specified rehabilitation procedure(V57.89)- Primary Other specified rehabilitation procedure documented in this encounter
--- OUTSIDE RECORDS SUMMARY | 2024-10-17 15:16 | XMS_ITS | Encounter Summary ---
Author Organization [facility] Address [address] [place] [address] Care Team Providers Care Legal Operations Manager Name Role Phone Unavailable Primary Care Provider Unavailabl e Encounter Details Date Type Department Care Team (Late st Contact Info) Description 01/09/2006 Outpatient Historical [facility] Trauma and General Surgery 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
--- OUTSIDE RECORDS SUMMARY | 2024-10-17 15:16 | XMS_ITS | Encounter Summary ---
Author Organization [facility] Address [address] [place] [address] Care Team Providers Care Lining Printer Name Role Phone Unavailable Primary Care Provider Unavailabl e Encounter Details Date Type Department Care Team (Late st Contact Info) Description 03/10/2006 Outpatient Historical [facility] [address] [address] Rita Esqueda MD 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
--- OUTSIDE RECORDS SUMMARY | 2024-10-17 15:16 | XMS_ITS | Encounter Summary ---
Author Organization [facility] Address [address] [place] [address] Care Team Providers Care Animal Ride Attendant Name Role Phone Unavailable Primary Care Provider Unavailabl e Encounter Details Date Type Department Care Team (Late st Contact Info) Description 09/26/2019 Lab Requisition [facility] [address] [place] [address] [facility], External Provider [address] [place] [address] Unspecified abnormal findings in urine Social History Tobacco Use Types Packs/Day Years Used Date Smoking Tobacco: Never Assessed Sex and Gender Information Value Date Recorded Sex Assigned at Not on file 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 Gender Identity Not on file Sexual [...] - 145 mmol/L 09/26/2019 8:53 PM CDT [facility] - [facility] POTASSIUM 5.1 3.4 - 5.1 mmol/L 09/26/2019 8:53 PM CDT [facility] CHLORIDE 105 98 - 107 mmol/L 09/26/2019 8:53 PM [facility] CO2 23 22 - 29 mmol/L 09/26/2019 8:53 PM [facility] CALCIUM 8.6 8.6 - 10.4 mg/dL 09/26/2019 8:53 PM [facility] BUN 28(H) 6 - 20 mg/dL 09/26/2019 8:53 PM [facility] CREATININE 1.07 0.67 - 1.17 mg/dL 09/26/2019 8:53 PM [facility] Comment:The GFR result is no t clinically significant on patients <18 or >70 years of age. GLUCOSE 83 74 - 99 mg/dL 09/26/2019 8:53 PM [facility] TOTAL PROTEIN 6.7 6.3 - 8.7 g/dL 09/26/2019 8:53 PM [facility] ALBUMIN 4.2 3.5 - 5.2 g/dL 09/26/2019 8:53 PM [facility] BILIRUBIN TOTAL 0.3 0.2 - 1.3 mg/dL 09/26/2019 8:53 PM [facility] ALKALINE PHOSPHATASE 99 40 - 150 U/L 09/26/2019 8:53 PM [facility] AST 18 0 - 41 U/L 09/26/2019 8:53 PM [facility] ALT 18 0 - 41 U/L 09/26/2019 8:53 PM [facility] GFR >60 mL/min/1.7 3 sq meter 09/26/2019 8:53 PM [facility] Comment: eGFR has not been [...] 3 sq meter 09/26/2019 8:53 PM CDT [facility] ANION GAP 14 8 - 16 mmol/L 09/26/2019 8:53 PM CDT [facility] Blood BLOOD SPECIMEN / Unknown Collection / Unknown 09/26/2019 3:44 PM CDT 09/26/2019 8:17 PM CDT us External Provider [facility] CHEMISTRY ORDERABLES Johanne l Result [facility] CLIA# [id number] [place] [address] * (ABNORMAL) CBC WITH DIFFERENTIAL (09/26/2019 3:44 PM CDT) WBC 6.6 4.5 - 10.5 K/uL 09/26/2019 8:26 PM CDT [facility] RBC 3.80(L) 4.50 - 5.40 M/uL 09/26/2019 8:26 PM CDT [facility] HEMOGLOBIN 11.5(L) 13.6 - 16.5 g/dL 09/26/2019 8:26 PM CDT [facility] HEMATOCRIT 34.3(L) 40.0 - 48.0 % 09/26/2019 8:26 PM CDT [facility] MCV 90.2 82.0 - 99.0 fL 09/26/2019 8:26 PM CDT [facility] MCH 30.2 27.8 - 34.5 pg 09/26/2019 8:26 PM CDT [facility] MCHC 33.5 32.5 - 35.5 g/dL 09/26/2019 8:26 PM CDT [facility] RDW 15.8(H) 11.5 - 14.5 % 09/26/2019 8:26 PM CDT [facility] PLATELETS 175 160 - 420 K/uL 09/26/2019 8:26 PM CDT [facility] MPV 10.2 8.7 - 12.7 fL 09/26/2019 8:26 PM CDT [facility] NEUTROPHILS 68 45 - 70 % 09/26/2019 8:26 PM CDT [facility] LYMPHOCYTES 16 16 - 45 % 09/26/2019 8:26 PM CDT [facility] MONOCYTES 10 3 - 13 % 09/26/2019 8:26 PM CDT [facility] EOSINOPHILS 5 0 - 7 % 09/26/2019 8:26 PM CDT [facility] BASOPHILS 1 0 - 2 % 09/26/2019 8:26 PM CDT [facility] NEUTROPHIL ABSOLUTE 4.50 1.90 - 7.00 K/uL 09/26/2019 8:26 PM CDT [facility] LYMPHOCYTE ABSOLUTE 1.10 0.70 - 4.50 K/uL 09/26/2019 8:26 PM CDT [facility] MONOCYTE ABSOLUTE 0.60 0.10 - 1.30 K/uL 09/26/2019 8:26 PM CDT [facility] EOSINOPHIL ABSOLUTE 0.40 0.00 - 0.70 K/uL 09/26/2019 8:26 PM CDT [facility] BASOPHILS ABSOLUTE 0.00 0.00 - 0.20 K/uL 09/26/2019 8:26 PM CDT [facility] Blood BLOOD SPECIMEN / Unknown Collection / Unknown 09/26/2019 3:44 PM CDT 09/26/2019 8:17 PM CDT us External Provider [facility] HEMATOLOGY ORDERABLES Fin al Result [facility] CLIA# [id number] [place] [address] * (ABNORMAL) URINALYSIS WITH REFLEX MICROSCOPIC (09/26/2019 3:00 PM CDT) COLOR UA Yellow Pale to Dark Yellow 09/26/2019 8:52 PM CDT [facility] CLARITY UA Slightly Cloudy(A) Clear 09/26/2019 8:52 PM CDT [facility] SPECIFIC GRAVITY UA 1.019 1.003 - 1.035 09/26/2019 8:52 PM CDT [facility] PH UA 5.0 5.0 - 8.0 09/26/2019 8:52 PM CDT [facility] LEUKOCYTE ESTERASE UA Negative Negative 09/26/2019 8:52 PM CDT [facility] NITRITE UA Negative Negative 09/26/2019 8:52 PM CDT [facility] PROTEIN UA Negative Negative 09/26/2019 8:52 PM CDT [facility] GLUCOSE UA Negative Negative 09/26/2019 8:52 PM CDT [facility] KETONES UA Negative Negative 09/26/2019 8:52 PM CDT [facility] UROBILINOGEN UA Normal <2.0 mg/dL 0 8:52 PM CDT [facility] BILIRUBIN UA Negative Negative 09/26/2019 8:52 PM CDT [facility] BLOOD UA Negative Negative 09/26/2019 8:52 PM CDT [facility] Comment:Ascorbic acid may ca use false negative results for blood. A microscopic review was reflexed to rule out this interference. WBC UA 0-2 0 - 2 /hpf 09/26/2019 8:52 PM [facility] RBC UA 0-2 0 - 2 /hpf 09/26/2019 8:52 PM CDT [facility] BACTERIA UA 1+(A) Negative /hpf 09/26/2019 8:52 PM CDT [facility] EPITHELIAL CELLS, URINE 0-5 0 - 5 /hpf 09/26/2019 8:52 PM CDT [facility] HYALINE CAST 0-2 None Seen, 0-2 /lpf 09/26/2019 8:52 PM CDT [facility] Ascorbic Acid UA Positive(A) Negative 020 8:52 PM CDT [facility] Urine URINE SPECIMEN OBTAINED BY CLEAN CATCH PROCEDURE / Unknown Collection / Unknown 09/26/2019 3:00 PM CDT 09/26/2019 8:17 PM CDT us External Provider [facility] URINE ORDERABLES Final Re sult [facility] CLIA# [id number] [place] [address] documented in this encounter Visit Diagnoses Diagnosis Unspecified abnormal findings in urine documented in this encounter
--- OUTSIDE RECORDS SUMMARY | 2024-10-17 15:16 | XMS_ITS | Encounter Summary ---
Author Organization [facility] Address 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
--- OUTSIDE RECORDS SUMMARY | 2024-10-17 15:16 | XMS_ITS | Encounter Summary ---
Author Organization [facility] Address 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
--- OUTSIDE RECORDS SUMMARY | 2024-10-17 15:16 | XMS_ITS | Encounter Summary ---
Author Organization [facility] Address [address] [place] [address] Care Team Providers Care Government Professor Name Role Phone Unavailable Primary Care Provider Unavailabl e Encounter Details Date Type Department Care Team (Late st Contact Info) Description 01/08/2006 Outpatient Historical [facility] Trauma and General Surgery [address] [facility] [place] [address] Jayden James MD [address] 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
--- OUTSIDE RECORDS SUMMARY | 2024-10-17 15:16 | XMS_ITS | Encounter Summary ---
Author Organization [facility] Address 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
[2024-10-17 15:28] LABS: Alanine Aminotransferase 22 U/L (6-50); Albumin Level 3.6 g/dL (3.5-5.1); Alkaline Phosphatase 100 U/L (38-126); Anion Gap 6 mmol/L (4-12); Aspartate Amino Transferase 24 U/L (17-59); Bilirubin,Total 0.5 mg/dL (0.2-1.3); Blood Urea Nitrogen 24 mg/dL (9-20); Calcium 8.3 mg/dL (8.4-10.2); Carbon Dioxide 32 mmol/L (22-30); Chloride 101 mmol/L (98-107); Estimated CRCL calculation 56 ml/min; Estimated Glomerular Filt Rate > 60; Glucose 94 mg/dL (65-110); Potassium 4.2 mmol/L (3.4-5.0); Sodium 139 mmol/L (137-145)
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
--- NOTE | 2024-10-17 16:43 | PC.NURSE ---
attempted to call report to [facility] on this pt at 1643 twic with no success
[2024-10-17 16:59] VITALS: BP 193/81; PULSE 58; RESP 16; O2SAT 97
[2024-10-17] MEDS: MELOXICAM 7.5 MG TABLET 15 MG PO (17:19)
[2024-10-17 17:55] VITALS: BP 184/86; PULSE 64; RESP 15; O2SAT 98
[2024-10-17 18:58] VITALS: BP 181/82; PULSE 76; RESP 17; O2SAT 96
--- NOTE | 2024-10-17 19:00 | PC.NURSE ---
attemted to call report at this time to pt facility with no answer
== END 2024-10-17 19:09 ==
PROVIDERS: Emergency Provider Emergency Medicine; PCP Internal Medicine
DX: M54.2 Cervicalgia (principal); R82.998 Other abnormal findings in urine; G89.29 Other chronic pain; Z86.718 Personal history of other venous thrombosis and embolism; K21.9 Gastro-esophageal reflux disease without esophagitis; D64.9 Anemia, unspecified; I10 Essential (primary) hypertension; Z87.440 Personal history of urinary (tract) infections; F32.A Depression, unspecified; G82.54 Quadriplegia, C5-C7 incomplete; I69.998 Other sequelae following unspecified cerebrovascular disease; H53.8 Other visual disturbances
CPT/HCPCS: 36415; 72125; 80053; 81001; 85025; 87086; 99284; A9270

== ENCOUNTER 2024-11-04 09:44 | Emergency (ER) | payer MEDICARE, OTHER, SELFPAY ==
[2024-11-04] VITALS (15 sets, daily range): BP systolic 166–194; BP diastolic 70–91; PULSE 45–57; RESP 6–17; TEMP 36.4; O2SAT 96–98
--- NOTE | ~2024-11-04 | XR_ITS ---
EXAMINATION: XR chest 2V DATE: 11/04/2024 10:30 INDICATION: Increasing weakness TECHNIQUE: frontal and lateral views of the chest were obtained. COMPARISON: Chest CT dated 10/09/2024 FINDINGS: Unchanged mild elevation the right hemidiaphragm. Airspace opacities in the bilateral posterior lower lung zones which could represent atelectasis or pneumonia. Blunting at the posterior sulci suggestin g very small bilateral pleural effusions. No pneumothorax or evident pulmonary edema mild cardiomegal y. IVC filter projects over the right side of the upper lumbar spine. Embolization coils project over the right side of the upper lumbar spine but more anteriorly on the lateral projection. IMPRESSION: 1. Opacities in the dependent lower lung zones which could represent atelectasis or pneumonia. 2. Very small bilateral pleural effusions. 2. Cardiomegaly. Reviewed, dictated and finalized at location A. IMPRESSION: 1. Opacities in the dependent lower lung zones which could represent atelectasi s or pneumonia. 2. Very small bilateral pleural effusions. 2. Cardiomegaly.
--- NOTE | 2024-11-04 10:01 | ECG_ITS ---
Test Date: 2024-11-04 10:13:17 Measurements Intervals [place] Rate: 50 P: -82 [place]: 217 QRS: -22 QRSD: 104 T: 50 QT: 435 QTc: 398 Interpretive Statements sinus rhythm Poor R wave progression nonsepific t wave Electronically Signed On 11-04-2024 11:42:13 CDT by Ashia Rae M.D.
[2024-11-04 10:50] LABS: Basophils Percent Auto 0.4 % (0.2-1.2); Eosinophils Absolute Auto 0.3 K/mm3 (0-0.3); Eosinophils Percent Auto 4.9 % (0-4.4); Hemoglobin 10.5 g/dL (14.0-18.0); Immature Granulocyte Absolute 0.01 K/mm3 (0.00-0.031); Immature Granulocyte Percent A 0.2 % (0-0.5); Lymphocytes Absolute Auto 0.62 K/mm3 (0.9-3.2); Lymphocytes Percent Auto 12.1 % (18.3-44.2); Mean Corpuscular Hemoglobin 28.4 pg (26-34); Mean Corpuscular Volume 94.6 fl (80-100); Mean Platelet Volume 10.7 fl (7.4-10.4); Monocytes Absolute Auto 0.5 K/mm3 (0.1-0.6); Monocytes Percent Auto 9.6 % (2.6-8.5); Neutrophils Absolute Auto 3.7 K/mm3 (1.3-6.7); Neutrophils Percent Auto 72.8 % (45.5-73.1); Platelet Count Result 158 k/mm3 (150-375); Red Cell Distribution Width 16.5 % (11.5-14.5); White Blood Count 5.1 K/mm3 (4.5-10.0)
[2024-11-04 10:54] LABS: Influenza A QL RT-PCR Negative (Negative); Influenza B QL RT-PCR Negative (Negative); RSV RNA, RT-PCR Negative (Negative); SARS-CoV-2 RNA PCR Negative (Negative)
[2024-11-04 11:02] LABS: Alanine Aminotransferase 17 U/L (6-50); Albumin Level 3.4 g/dL (3.5-5.1); Alkaline Phosphatase 116 U/L (38-126); Anion Gap 5 mmol/L (4-12); Aspartate Amino Transferase 22 U/L (17-59); Bilirubin,Total 0.5 mg/dL (0.2-1.3); Blood Urea Nitrogen 23 mg/dL (9-20); Carbon Dioxide 33 mmol/L (22-30); Chloride 104 mmol/L (98-107); Estimated Glomerular Filt Rate > 60; Glucose 97 mg/dL (65-110); Potassium 3.3 mmol/L (3.4-5.0); Sodium 142 mmol/L (137-145)
[2024-11-04 11:05] LABS: Add Urine Microscopic? YES; Appearance Urine Cloudy (Clear); Bacteria Urine 4+ /hpf; Bilirubin Urine Negative (Negative); Blood Urine Negative (Negative); Color Urine Yellow (Yellow); Glucose Urine UA Negative (Negative); Hyaline Casts Urine Present /lpf; Ketones Urine Negative (Negative); Leukocyte Esterase Ur 3+ LEU/UL (Negative); Need Manual Microscopic Reviewed; Nitrate Urine Negative (Negative); Protein Urine Negative (Negative); RBC Urine 0-2 /hpf (0-2); Specific Grav Ur 1.009 (1.001-1.035); Squamous Epithelial Cell Urine Few /hpf (Few); Urobilinogen Urine 0.2 mg/dL (<2.0); WBC Urine 51-100 /hpf (0-3); pH Urine 7.5 (5.0-9.0)
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
[2024-11-04] MEDS: levoFLOXacin 750 MG/D5W 150 ML 750 MG/150 ML BAG 100 MG IVPB (11:44)
--- NOTE | 2024-11-04 12:34 | PC.NURSE ---
attempted to call report at 1226 with no answer. charge nurse called and someone would call back for report
--- NOTE | 2024-11-04 12:38 | PC.NURSE ---
Vandana from [facility] returned call and report given
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
--- OUTSIDE RECORDS SUMMARY | 2024-11-04 16:16 | XMS_ITS | Encounter Summary ---
Author Organization [facility] Address [address] [place] [address] Care Team Providers Care Import Coordination And Production Head Name Role Phone Unavailable Primary Care Provider Unavailabl e Encounter Details Date Type Department Care Team (Late st Contact Info) Description 03/14/2006 Outpatient Historical [facility] Adult Hospitalists [facility] [address] [place] [address] Devan Agrawal MD [address] [facility] 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
--- OUTSIDE RECORDS SUMMARY | 2024-11-04 16:16 | XMS_ITS | Encounter Summary ---
Author Organization [facility] Address [address] [place] [address] Care Team Providers Care Poacher Operator Name Role Phone Unavailable Primary Care Provider Unavailabl e Encounter Details Date Type Department Care Team (Late st Contact Info) Description 03/10/2006 Outpatient Historical [facility] Adult Hospitalists [address] [address] Rita Esqueda MD [address] [address], [place] [address] Social History Tobacco Use Types Packs/Day Years Used Date Smoking Tobacco: Never Assessed Sex and Gender Information Value Date Recorded Sex Assigned at Not on file Legal Sex Male 3:46 AM PROTECTIVE SERVICE SPECIALIST Gender Identity Not on file Sexual Orientation Not on file documented as of this encounter Plan of Treatment Not on file documented as of this encounter Visit Diagnoses Not on filedocumented in this encounter
--- OUTSIDE RECORDS SUMMARY | 2024-11-04 16:16 | XMS_ITS | Encounter Summary ---
Author Organization [employer] Address [address] [place] [address] Care Team Providers Care Farm Assistant Name Role Phone Unavailable Primary Care Provider Unavailabl e Encounter Details Date Type Department Care Team (Latest Contact Info) Description 01/13/2006 Inpatient Historical HIS [place] [address] [place] [address] Other Specified Rehabilitation Procedure (Primary Dx) Social History Tobacco Use Types Packs/Day Years Used Date Smoking Tobacco: Never Assessed Sex and Gender Information Value Date Recorded Sex Assigned at Not on file Legal Sex Male 3:46 AM [employer]PER[employer] Gender Identity Not on file Sexual [...] ABG ORDERABLES Final Result Performing Organization Address [facility] Phone Number INTERFACE SYSTEM Refer to [...] ORDERABLES Final Re sult Performing Organization Address [facility] Phone Number INTERFACE SYSTEM Refer to [...] fL INTERFACE SYSTEM 03/14/2006 4:37 AM CDT [facility] Final Re sult Performing Organization Address [facility] Phone Number INTERFACE SYSTEM Refer to clinic/hospital department * MAGNESIUM LEVEL (03/14/2006 4:37 AM CDT) MAGNESIUM 2.0 1.5 - 2.5 mg/dL INTERFACE SYSTEM 03/14/2006 4:37 AM CDT Rita Esqueda MD CHEMISTRY ORDERABLES Final Res ult Performing Organization Address [facility] Phone Number INTERFACE SYSTEM Refer [...] mmol/L INTERFACE SYSTEM 03/14/2006 4:37 AM [facility] ORDER[facility]LES Final Res ult Performing Organization Address [facility] Phone Number INTERFACE SYSTEM Refer to clinic/hospital department * (ABNORMAL) C-REACTIVE PROTEIN (03/14/2006 4:37 AM CDT) CRP 4.1(H) 0.0 - 0.8 mg/dL INTERFACE SYSTEM 03/14/2006 4:37 AM CDT [facility] CHEMISTRY ORDERABLES Final Res ult Performing Organization Address [facility] Phone Number INTERFACE SYSTEM Refer to clinic/hospital department * VANCOMYCIN LEVEL TROUGH (03/13/2006 1:02 PM CDT) VANCOMYCIN, TROUGH 8.7 5.0 - 15.0 ug/mL INTERFACE SYSTEM Comment: Vancomycin Trough Toxic Level= >15.0 ug/mL 03/13/2006 1:02 PM CDT [facility] Final Res ult Performing Organization Address [facility] Phone Number INTERFACE SYSTEM Refer [...] ORDERABLES Final R esult Performing Organization Address [facility] Phone Number INTERFACE SYSTEM Refer to clinic/hospital department * C-REACTIVE PROTEIN, CSF (03/12/2006 3:10 PM CDT) CRP, CSF 0.15 mg/dL INTERFACE SYSTEM Comment: Note: New methodology using CSF CRP (highly sensitive) assay is effective 12/11/03. No reference range has been established for CSF CRP. 03/12/2006 3:10 PM CDT Alexa Dillon MD BODY FLUIDS AND STOOLS Final Result Performing Organization Address [facility] Phone Number INTERFACE SYSTEM Refer [...] AND STOOLS Final Result Performing Organization Address [facility] Phone Number INTERFACE SYSTEM Refer to clinic/hospital department * (ABNORMAL) TOTAL PROTEIN, CSF (03/12/2006 3:10 PM CDT) PROTEIN, CSF 365(H) 15 - 45 mg/dL INTERFACE SYSTEM Comment: New CSF Protein Quantitative Methodology - Note New Reference Range. bloody sample 03/12/2006 3:10 PM CDT Aman Gottlieb DO BODY FLUIDS AND STOOLS Final Result Performing Organization Address [facility] Phone Number INTERFACE SYSTEM Refer [...] PM and read back verified. RBC, CSF 702265(H) <=0 /uL INTERFACE SYSTEM 03/12/2006 3:10 PM CDT us Aman Gottlieb DO BODY FLUIDS AND STOOLS Final Result Performing Organization Address [facility] de Phone Number INTERFACE SYSTEM Refer [...] HEMATOLOGY ORDERABLES Final Result Performing Organization Address [facility] de Phone Number INTERFACE SYSTEM Refer [...] HEMATOLOGY ORDERABLES Final Result Performing Organization Address [facility] Phone Number INTERFACE SYSTEM Refer to [...] ORDERABLES Final R esult Performing Organization Address [facility] de Phone Number INTERFACE SYSTEM Refer [...] HEMATOLOGY ORDERABLES Final Result Performing Organization Address City/[facility] de Phone Number INTERFACE SYSTEM Refer [...] HEMATOLOGY ORDERABLES Final Result Performing Organization Address City/[facility] Co de Phone Number INTERFACE SYSTEM Refer to clinic/hospital department * (ABNORMAL) C-REACTIVE PROTEIN (03/11/2006 4:40 AM CDT) CRP 6.5(H) 0.0 - 0.8 mg/dL INTERFACE SYSTEM 03/11/2006 4:40 AM CDT Sushil Arroyo MD CHEMISTRY ORDERABLES Final R [facility] Performing Organization Address [facility] Phone Number INTERFACE SYSTEM Refer to [...] Sushil Arroyo MD CHEMISTRY ORDERABLES Final [facility] Performing Organization Address [facility] Phone Number INTERFACE SYSTEM Refer to [...] patients with mechanical heart valves or post OR. Pediatric (12 years and under): 1.5 - [...] HEMATOLOGY ORDERABLES Final Result Performing Organization Address [facility] Phone Number INTERFACE SYSTEM Refer to [...] ORDERABLES Final Resul t Performing Organization Address [facility] de Phone Number INTERFACE SYSTEM Refer [...] HEMATOLOGY ORDERABLES Final Result Performing Organization Address City/[facility] de Phone Number INTERFACE SYSTEM Refer [...] patients with mechanical heart valves or post OR. Pediatric (12 years and under): 1.5 - [...] HEMATOLOGY ORDERABLES Final Result Performing Organization Address [facility] de Phone Number INTERFACE SYSTEM Refer [...] patients with mechanical heart valves or post OR. Pediatric (12 years and under): 1.5 - [...] ORDERABLES Final Res ult Performing Organization Address City/[facility] de Phone Number INTERFACE SYSTEM Refer [...] ORDERABLES Final Res ult Performing Organization Address [facility] Phone Number INTERFACE SYSTEM Refer to [...] ORDERABLES Final Res ult Performing Organization Address [facility] Phone Number INTERFACE SYSTEM Refer to clinic/hospital department * (ABNORMAL) C-REACTIVE PROTEIN (03/08/2006 6:34 PM CDT) CRP 5.2(H) 0.0 - 0.8 mg/dL INTERFACE SYSTEM 03/08/2006 6:34 PM CDT us Keenan Mandujano MD CHEMISTRY ORDERABLES Final Resu lt Performing Organization Address [facility] Co ar Phone Number INTERFACE SYSTEM Refer to clinic/hospital [...] URINE ORDERABLES Final Result Performing Organization Address [facility] Phone Number INTERFACE SYSTEM Refer to [...] patients with mechanical heart valves or post OR. Pediatric (12 years and under): 1.5 - [...] HEMATOLOGY ORDERABLES Final Result Performing Organization Address [facility] Phone Number INTERFACE SYSTEM Refer to [...] ORDERABLES Final Resul t Performing Organization Address [facility] Phone Number INTERFACE SYSTEM Refer to [...] HEMATOLOGY ORDERABLES Final Result Performing Organization Address [facility] Phone Number INTERFACE SYSTEM Refer to [...] HEMATOLOGY ORDERABLES Final Result Performing Organization Address City/[facility] de Phone Number INTERFACE SYSTEM Refer [...] ORDERABLES Final R esult Performing Organization Address City/[facility] de Phone Number INTERFACE SYSTEM Refer [...] patients with mechanical heart valves or post OR. Pediatric (12 years and under): 1.5 - [...] HEMATOLOGY ORDERABLES Final Result Performing Organization Address [facility] Phone Number INTERFACE SYSTEM Refer to [...] URINE ORDERABLES Final Result Performing Organization Address [facility] Phone Number INTERFACE SYSTEM Refer to [...] HEMATOLOGY ORDERABLES Final Result Performing Organization Address [facility] Phone Number INTERFACE SYSTEM Refer to [...] HEMATOLOGY ORDERABLES Final Result Performing Organization Address [facility] Phone Number INTERFACE SYSTEM Refer to [...] ORDERABLES Final R esult Performing Organization Address [facility] de Phone Number INTERFACE SYSTEM Refer [...] HEMATOLOGY ORDERABLES Final Result Performing Organization Address [facility] Phone Number INTERFACE SYSTEM Refer to [...] HEMATOLOGY ORDERABLES Final Result Performing Organization Address City/[facility] Co de Phone Number INTERFACE SYSTEM [...] INTERFACE SYSTEM 02/26/2006 12:4 4 PM CDT [facility] HEMATOLOGY ORDERABLES Final Re sult Performing Organization Address City/[facility] de Phone Number INTERFACE SYSTEM Refer to clinic/hospital department * C-REACTIVE PROTEIN (02/26/2006 12:44 PM CDT) CRP 0.2 0.0 - 0.8 mg/dL INTERFACE SYSTEM 02/26/2006 12:4 4 PM CDT [facility] CHEMISTRY ORDERABLES Final Res ult Performing Organization Address [facility] de Phone Number INTERFACE SYSTEM Refer [...] ORDERABLES Final Res ult Performing Organization Address [facility] Phone Number INTERFACE SYSTEM Refer to [...] ORDERABLES Final Resul t Performing Organization Address [facility] Phone Number INTERFACE SYSTEM Refer to [...] K/uL INTERFACE SYSTEM 02/25/2006 4:36 AM CDT [facility] HEMATOLOGY ORDERABLES Final Re sult Performing Organization Address [facility] de Phone Number INTERFACE SYSTEM Refer [...] fL INTERFACE SYSTEM 02/25/2006 4:36 AM CDT [facility] HEMATOLOGY ORDERABLES Final Re sult Performing Organization Address [facility] Phone Number INTERFACE SYSTEM Refer to [...] SYSTEM 02/25/2006 4:36 AM CDT [facility] Zaid CHEMISTRY ORDERABLES Final Res ult Performing Organization Address [facility] Phone Number INTERFACE SYSTEM Refer to clinic/hospital department * C-REACTIVE PROTEIN (02/25/2006 4:36 AM CDT) CRP 0.2 0.0 - 0.8 mg/dL INTERFACE SYSTEM 02/25/2006 4:36 AM CDT [facility] CHEMISTRY ORDERABLES Final Res ult Performing Organization Address [facility] Phone Number INTERFACE SYSTEM Refer to [...] URINE ORDERABLES Final Result Performing Organization Address [facility] Phone Number INTERFACE SYSTEM Refer to [...] patients with mechanical heart valves or post OR. Pediatric (12 years and under): 1.5 - [...] patients with mechanical heart valves or post OR. Pediatric (12 years and under): 1.5 - [...] HEMATOLOGY ORDERABLES Final Result Performing Organization Address [facility] Phone Number INTERFACE SYSTEM Refer to [...] patients with mechanical heart valves or post OR. Pediatric (12 years and under): 1.5 - [...] HEMATOLOGY ORDERABLES Final Result Performing Organization Address [facility] Phone Number INTERFACE SYSTEM Refer to [...] ORDERABLES Final Resul t Performing Organization Address [facility] Phone Number INTERFACE SYSTEM Refer to [...] patients with mechanical heart valves or post OR. Pediatric (12 years and under): 1.5 - [...] HEMATOLOGY ORDERABLES Final Result Performing Organization Address City/[facility] Phone Number INTERFACE SYSTEM Refer to [...] patients with mechanical heart valves or post OR. Pediatric (12 years and under): 1.5 - [...] HEMATOLOGY ORDERABLES Final Result Performing Organization Address [facility] de Phone Number INTERFACE SYSTEM Refer [...] ORDERABLES Final Resul t Performing Organization Address [facility] de Phone Number INTERFACE SYSTEM Refer [...] patients with mechanical heart valves or post OR. Pediatric (12 years and under): 1.5 - [...] ORDERABLES Final Res ult Performing Organization Address [facility] Phone Number INTERFACE SYSTEM Refer to [...] patients with mechanical heart valves or post OR. Pediatric (12 years and under): 1.5 - [...] ORDERABLES Final Res ult Performing Organization Address [facility] Phone Number INTERFACE SYSTEM Refer to [...] patients with mechanical heart valves or post OR. Pediatric (12 years and under): 1.5 - [...] HEMATOLOGY ORDERABLES Final Result Performing Organization Address [facility] de Phone Number INTERFACE SYSTEM Refer [...] ORDERABLES Final Res ult Performing Organization Address [facility] Co de Phone Number INTERFACE SYSTEM [...] ORDERABLES Final Res ult Performing Organization Address City/[facility] Co de Phone Number INTERFACE SYSTEM [...] patients with mechanical heart valves or post OR. Pediatric (12 years and under): 1.5 - [...] HEMATOLOGY ORDERABLES Final Result Performing Organization Address City/[facility]/ZIP Co de Phone Number INTERFACE SYSTEM Refer [...] ORDERABLES Final Resul t Performing Organization Address [facility] Phone Number INTERFACE SYSTEM Refer to [...] HEMATOLOGY ORDERABLES Final Result Performing Organization Address [facility] Phone Number INTERFACE SYSTEM Refer to [...] HEMATOLOGY ORDERABLES Final Result Performing Organization Address [facility] de Phone Number INTERFACE SYSTEM Refer [...] ORDERABLES Final R esult Performing Organization Address City/[facility]/ZIP Co de Phone Number INTERFACE SYSTEM Refer [...] patients with mechanical heart valves or post OR. Pediatric (12 years and under): 1.5 - [...] HEMATOLOGY ORDERABLES Final Result Performing Organization Address City/State/[facility] Co de Phone Number INTERFACE SYSTEM [...] patients with mechanical heart valves or post OR. Pediatric (12 years and under): 1.5 - [...] ORDERABLES Final Resu lt Performing Organization Address City/[facility] de Phone Number INTERFACE SYSTEM Refer [...] ORDERABLES Final Res ult Performing Organization Address [facility] de Phone Number INTERFACE SYSTEM Refer [...] ORDERABLES Final Res ult Performing Organization Address [facility] de Phone Number INTERFACE SYSTEM Refer [...] patients with mechanical heart valves or post OR. Pediatric (12 years and under): 1.5 - [...] ORDERABLES Final Res ult Performing Organization Address [facility] Phone Number INTERFACE SYSTEM Refer to [...] patients with mechanical heart valves or post OR. Pediatric (12 years and under): 1.5 - [...] ORDERABLES Final Res t Performing Organization Address [facility] Phone Number INTERFACE SYSTEM Refer to [...] patients with mechanical heart valves or post OR. Pediatric (12 years and under): 1.5 - 3.0 Although the target range in children is not well established , INR values of 1.5 - 3.0 are recommended for most patients. Higher values have been used in children with prosthetic cardiac valves and hereditary clotting disorders. (<3 days) therapeutic ranges have not been established. 01/28/2006 4:52 AM CDT Result [facility] Keenan Mandujano MD HEMATOLOGY ORDERABLES Final [facility] Performing Organization Address [facility] Phone Number INTERFACE SYSTEM Refer to [...] patients with mechanical heart valves or post OR. Pediatric (12 years and under): 1.5 - [...] ORDERABLES Final Res ult Performing Organization Address [facility] Phone Number INTERFACE SYSTEM Refer to [...] patients with mechanical heart valves or post OR. Pediatric (12 years and under): 1.5 - [...] ORDERABLES Final Res ult Performing Organization Address [facility] Phone Number INTERFACE SYSTEM Refer to [...] patients with mechanical heart valves or post OR. Pediatric (12 years and under): 1.5 - [...] ORDERABLES Final Res ult Performing Organization Address [facility] Phone Number INTERFACE SYSTEM Refer to [...] patients with mechanical heart valves or post OR. Pediatric (12 years and under): 1.5 - 3.0 Although the target range in children is not well established , INR values of 1.5 - 3.0 are recommended for most patients. Higher values have been used in children with prosthetic cardiac valves and hereditary clotting disorders. (<3 days) therapeutic ranges have not been established. 01/23/2006 4:57 AM CDT Result [facility] Keenan Mandujano MD HEMATOLOGY ORDERABLES Final Res ult Performing Organization Address [facility] Phone Number INTERFACE SYSTEM Refer to [...] patients with mechanical heart valves or post OR. Pediatric (12 years and under): 1.5 - [...] ORDERABLES Final Res ult Performing Organization Address [facility] Phone Number INTERFACE SYSTEM Refer to [...] ORDERABLES Final Resu lt Performing Organization Address [facility] Phone Number INTERFACE SYSTEM Refer to [...] patients with mechanical heart valves or post OR. Pediatric (12 years and under): 1.5 - [...] ORDERABLES Final Res ult Performing Organization Address [facility] Phone Number INTERFACE SYSTEM Refer to [...] patients with mechanical heart valves or post OR. Pediatric (12 years and under): 1.5 - [...] ORDERABLES Final Resu lt Performing Organization Address [facility] Phone Number INTERFACE SYSTEM Refer to [...] patients with mechanical heart valves or post OR. Pediatric (12 years and under): 1.5 - [...] ORDERABLES Final Resu lt Performing Organization Address City/[facility] Co de Phone Number INTERFACE SYSTEM [...] patients with mechanical heart valves or post OR. Pediatric (12 years and under): 1.5 - [...] HEMATOLOGY ORDERABLES Final Result Performing Organization Address [facility] Center/[facility] Co de Phone Number INTERFACE SYSTEM [...] ORDERABLES Final R esult Performing Organization Address City/[facility] Co de Phone Number INTERFACE SYSTEM [...] ORDERABLES Final Resul t Performing Organization Address City/[facility]/ZIP Co de Phone Number INTERFACE SYSTEM Refer to clinic/hospital department documented in this encounter Visit Diagnoses Diagnosis Other specified rehabilitation procedure(V57.89)- Primary Other specified rehabilitation procedure documented in this encounter
--- OUTSIDE RECORDS SUMMARY | 2024-11-04 16:16 | XMS_ITS | Clinical Summary ---
Author Organization [facility] Address [address] [facility] [address] [place] [address] Care Team Providers Care Sweep Press Operator Name Role Phone Rod Strauss MD Primary Care Provider [phone] Source Comments [facility],non-owned Affiliates and Associated Physician Practices is amultiple site organization consisting of ambulatory clinics and hospital sitesin [place], [place] and [place]. This disclosure is being madepursuant to the Care Everywhere program and may not contain all information available regarding this patient. 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 Follows with [facility]. -continue home metoprolol 25mg BID [...] (05/30/2024): Last Assessment & Plan: H/o L HUMAN FACTORS SCIENTIST infarct 2019, continue asa/statin Hydronephrosis 05/10/2019 Pyelonephritis [...] has since passed. Urine cx from [facility] on 05/04 also growing pseudomonas, resistant [...] reach son and obtained collateral from [facility] - CT Head today. - Fall [...] medical care, and heating? Patient declined 05/31/2024 [facility] - Occupational Stress Questionnaire Answer [...] time in the past 12 m [facility], were you homeless or living in a senior living (including now)? Patient declined 05/31/2024 Sex and Gender Information Value Date Recorded Sex Assigned at Not on file Legal Sex Male 5:23 PM ELECTRIC FORK OPERATOR Gender Identity Not on file Sexual Orientation Not on file Last Filed Vital Signs Vital Sign Reading Time Taken Comments Blood Pressure 135/77 06/15/2024 11:48 AM ELECTRIC FORK OPERATOR Pulse 74 06/15/2024 11:48 AM ELECTRIC FORK OPERATOR Temperature 36.4 C (97.6 F) 06/15/2024 8:35 AM ELECTRIC FORK OPERATOR Respiratory Rate 16 06/15/2024 11:48 AM ELECTRIC FORK OPERATOR Oxygen Saturation 97% 06/15/2024 11:48 AM ELECTRIC FORK OPERATOR Inhaled Oxygen Concentration 40% 06/04/2024 9 :43 AM ELECTRIC FORK OPERATOR Weight 88.5 kg (195 lb) 06/15/2024 8:35 AM ELECTRIC FORK OPERATOR Height 190.5 cm (6' 3 ) 06/15/2024 8:35 AM ELECTRIC FORK OPERATOR Body Mass Index 24.37 06/15/2024 8:35 AM ELECTRIC FORK OPERATOR Plan of Treatment Health Maintenance Due Date [...] this topic Medical Devices Implanted Type Area Community Liaison Device Identifier Shelf Expiration Date Model / Serial / Lot Synchromed Iii Pump Implanted:Qty: 1 on 06/04/2024 by Deshawn Schultz MD at [facility] Left: Abdomen [employer] 08/18/2025 8667-40 / [id number] / Ascenda Implanted:Qty: 1 on 06/04/2024 by Deshawn Schultz MD at [facility] Left: Abdomen [employer] 12/14/2024 [id number] / / [id number] Procedures Procedure Name Priority Date/Time Associated Diagnosis Comments HEPATITIS C AB SCREEN RFLX NAAT QUANT STAT 06/06/2024 11:49 AM ELECTRIC FORK OPERATOR from Last 3 Months or Most Recently Relevant to Health Maintenance Results * HEPATITIS C AB SCREEN RFLX NAAT QUANT (06/06/2024 11:49 AM ELECTRIC FORK OPERATOR) Hepatitis C Antibody Non-react lottie Non-reac tive 06/06/2024 1:01 PM ELECTRIC FORK OPERATOR [facility] Comment:Hepatitis C Antibody screen indicates [...] Lab Venipuncture / Unknown 06/06/2024 11:49 AM ELECTRIC FORK OPERATOR 06/06/2024 12:05 PM ELECTRIC FORK OPERATOR Salena Griffin APRN-FIBER LOCKING SUPERVISOR LAB - CHEMISTRY ORDERABLES F inal Result [facility] [address] [place] [id number], [facility] [phone] from Last 3 Months or Most Recently Relevant to Health Maintenance Additional Health Concerns Infection Onset Date Last Indicated ESBL GNR 06/01/2024 06/01/2024 Insurance * Guarantor: Jerome Askew Account Type Relation to Patient Date of Phone Billing Address Personal/Family Self 1950 [facility] [address] [place] [address] [place] [address] [place] [address] MEDICARE Advance Directives * Full Code (Latest Code Status on File) Date Activated Date Inactivated Comments 05/31/2024 11:27 PM 06/09/2024 8:37 PM Care Teams Sweep Press Operator Relationship Specialty Start Date End Date Rod Strauss MD [address] [place] [phone] PCP - General Internal Medicine 06/15/24
--- OUTSIDE RECORDS SUMMARY | 2024-11-04 16:16 | XMS_ITS | Encounter Summary ---
Author Organization [facility] Address [address] [place] [address] Care Team Providers Care Route Carrier Name Role Phone Unavailable Primary Care Provider Unavailabl e Encounter Details Date Type Department Care Team (Late st Contact Info) Description 03/15/2006 Outpatient Historical [facility]ists [address] [address] Yenny Hauser MD NO ADDRESS ON FILE Social History Tobacco Use Types Packs/Day Years Used Date Smoking Tobacco: Never Assessed Sex and Gender Information Value Date Recorded Sex Assigned at Not on file Legal Sex Male 3:46 AM COMPLAINT COORDINATOR Gender Identity Not on file Sexual Orientation Not on file documented as of this encounter Plan of Treatment Not on file documented as of this encounter Visit Diagnoses Not on filedocumented in this encounter
--- OUTSIDE RECORDS SUMMARY | 2024-11-04 16:16 | XMS_ITS | Encounter Summary ---
Author Organization [facility] Address [address] [place] [address] Care Team Providers Care Swatcher Name Role Phone Unavailable Primary Care Provider Unavailabl e Encounter Details Date Type Department Care Team (Late st Contact Info) Description 01/13/2006 Outpatient Historical [facility] Supp Svcs Blood Flow [address] [place] [address] Dillan Henry MD NO ADDRESS ON FILE Social History Tobacco Use Types Packs/Day Years Used Date Smoking Tobacco: Never Assessed Sex and Gender Information Value Date Recorded Sex Assigned at Not on file Legal Sex Male 3:46 AM RFID MANAGER Gender Identity Not on file Sexual Orientation Not on file documented as of this encounter Plan of Treatment Not on file documented as of this encounter Visit Diagnoses Not on filedocumented in this encounter
--- OUTSIDE RECORDS SUMMARY | 2024-11-04 16:16 | XMS_ITS | Encounter Summary ---
Author Organization [employer] Address [address] [place] [address] Care Team Providers Care Citizenship Instructor Name Role Phone Unavailable Primary Care Provider Unavailabl e Encounter Details Date Type Department Care Team (Late st Contact Info) Description 01/13/2006 Outpatient Historical [facility] Support [facility]. (Adt Cardiology[facility]) [address] [place] [address] Phyllis Bajwa MD [address] [address] [address] [place] [address] Social History Tobacco Use Types Packs/Day Years Used Date Smoking Tobacco: Never Assessed Sex and Gender Information Value Date Recorded Sex Assigned at Not on file Legal Sex Male 3:46 AM TURNING MACHINE SET UP OPERATOR Gender Identity Not on file Sexual Orientation Not on file documented as of this encounter Plan of Treatment Not on file documented as of this encounter Visit Diagnoses Not on filedocumented in this encounter
--- OUTSIDE RECORDS SUMMARY | 2024-11-04 16:17 | XMS_ITS | Encounter Summary ---
Author Organization [facility] Address [address] [place] [address] Care Team Providers Care Proofer Black And White Name Role Phone Unavailable Primary Care Provider Unavailabl e Encounter Details Date Type Department Care Team (Late st Contact Info) Description 09/26/2019 Lab Requisition [facility] [address] [place] [address] [facility], External Provider [address] [place] [address] Unspecified abnormal findings in urine Social History Tobacco Use Types Packs/Day Years Used Date Smoking Tobacco: Never Assessed Sex and Gender Information Value Date Recorded Sex Assigned at Not on file 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 Gender Identity Not on file Sexual Orientation [...] - 145 mmol/L 09/26/2019 8:53 PM CDT [facility] POTASSIUM 5.1 3.4 - 5.1 mmol/L 09/26/2019 8:53 PM CDT [facility] CHLORIDE 105 98 - 107 mmol/L 09/26/2019 8:53 PM [facility] CO2 23 22 - 29 mmol/L 09/26/2019 8:53 PM [facility] CALCIUM 8.6 8.6 - 10.4 mg/dL 09/26/2019 8:53 PM [facility] BUN 28(H) 6 - 20 mg/dL 09/26/2019 8:53 PM [facility] CREATININE 1.07 0.67 - 1.17 mg/dL 09/26/2019 8:53 PM [facility] Comment:The GFR result is no t clinically significant on patients <18 or >70 years of age. GLUCOSE 83 74 - 99 mg/dL 09/26/2019 8:53 PM [facility] TOTAL PROTEIN 6.7 6.3 - 8.7 g/dL 09/26/2019 8:53 PM [facility] ALBUMIN 4.2 3.5 - 5.2 g/dL 09/26/2019 8:53 PM [facility] BILIRUBIN TOTAL 0.3 0.2 - 1.3 mg/dL 09/26/2019 8:53 PM [facility] ALKALINE PHOSPHATASE 99 40 - 150 U/L 09/26/2019 8:53 PM [facility] AST 18 0 - 41 U/L 09/26/2019 8:53 PM [facility] ALT 18 0 - 41 U/L 09/26/2019 8:53 PM [facility] GFR >60 mL/min/1.7 3 sq meter 09/26/2019 8:53 PM [facility] Comment: eGFR has not been validated for [...] 3 sq meter 09/26/2019 8:53 PM CDT [facility] ANION GAP 14 8 - 16 mmol/L 09/26/2019 8:53 PM CDT [facility] Blood BLOOD SPECIMEN / Unknown Collection / Unknown 09/26/2019 3:44 PM CDT 09/26/2019 8:17 PM CDT us External Provider [facility] CHEMISTRY ORDERABLES Johanne l Result [facility] CLIA# [id number] [place] [address] * (ABNORMAL) CBC WITH DIFFERENTIAL (09/26/2019 3:44 PM CDT) WBC 6.6 4.5 - 10.5 K/uL 09/26/2019 8:26 PM CDT [facility] RBC 3.80(L) 4.50 - 5.40 M/uL 09/26/2019 8:26 PM CDT [facility] HEMOGLOBIN 11.5(L) 13.6 - 16.5 g/dL 09/26/2019 8:26 PM CDT [facility] HEMATOCRIT 34.3(L) 40.0 - 48.0 % 09/26/2019 8:26 PM CDT [facility] MCV 90.2 82.0 - 99.0 fL 09/26/2019 8:26 PM CDT [facility] MCH 30.2 27.8 - 34.5 pg 09/26/2019 8:26 PM CDT [facility] MCHC 33.5 32.5 - 35.5 g/dL 09/26/2019 8:26 PM CDT [facility] RDW 15.8(H) 11.5 - 14.5 % 09/26/2019 8:26 PM CDT [facility] PLATELETS 175 160 - 420 K/uL 09/26/2019 8:26 PM CDT [facility] MPV 10.2 8.7 - 12.7 fL 09/26/2019 8:26 PM CDT [facility] NEUTROPHILS 68 45 - 70 % 09/26/2019 8:26 PM CDT [facility] LYMPHOCYTES 16 16 - 45 % 09/26/2019 8:26 PM CDT [facility] MONOCYTES 10 3 - 13 % 09/26/2019 8:26 PM CDT [facility] EOSINOPHILS 5 0 - 7 % 09/26/2019 8:26 PM CDT [facility] BASOPHILS 1 0 - 2 % 09/26/2019 8:26 PM CDT [facility] NEUTROPHIL ABSOLUTE 4.50 1.90 - 7.00 K/uL 09/26/2019 8:26 PM CDT [facility] LYMPHOCYTE ABSOLUTE 1.10 0.70 - 4.50 K/uL 09/26/2019 8:26 PM CDT [facility] MONOCYTE ABSOLUTE 0.60 0.10 - 1.30 K/uL 09/26/2019 8:26 PM CDT [facility] EOSINOPHIL ABSOLUTE 0.40 0.00 - 0.70 K/uL 09/26/2019 8:26 PM CDT [facility] BASOPHILS ABSOLUTE 0.00 0.00 - 0.20 K/uL 09/26/2019 8:26 PM CDT [facility] Blood BLOOD SPECIMEN / Unknown Collection / Unknown 09/26/2019 3:44 PM CDT 09/26/2019 8:17 PM CDT us External Provider [facility] HEMATOLOGY ORDERABLES Fin al Result [facility] CLIA# [id number] [place] [address] * (ABNORMAL) URINALYSIS WITH REFLEX MICROSCOPIC (09/26/2019 3:00 PM CDT) COLOR UA Yellow Pale to Dark Yellow 09/26/2019 8:52 PM CDT [facility] CLARITY UA Slightly Cloudy(A) Clear 09/26/2019 8:52 PM CDT [facility] SPECIFIC GRAVITY UA 1.019 1.003 - 1.035 09/26/2019 8:52 PM CDT [facility] PH UA 5.0 5.0 - 8.0 09/26/2019 8:52 PM CDT [facility] LEUKOCYTE ESTERASE UA Negative Negative 09/26/2019 8:52 PM CDT [facility] NITRITE UA Negative Negative 09/26/2019 8:52 PM CDT [facility] PROTEIN UA Negative Negative 09/26/2019 8:52 PM CDT [facility] GLUCOSE UA Negative Negative 09/26/2019 8:52 PM CDT [facility] KETONES UA Negative Negative 09/26/2019 8:52 PM CDT [facility] UROBILINOGEN UA Normal <2.0 mg/dL 0 8:52 PM CDT [facility] BILIRUBIN UA Negative Negative 09/26/2019 8:52 PM CDT [facility] BLOOD UA Negative Negative 09/26/2019 8:52 PM CDT [facility] Comment:Ascorbic acid may ca use false negative results for blood. A microscopic review was reflexed to rule out this interference. WBC UA 0-2 0 - 2 /hpf 09/26/2019 8:[facility] RBC UA 0-2 0 - 2 /hpf 09/26/2019 8:52 PM CDT [facility] BACTERIA UA 1+(A) Negative /hpf 09/26/2019 8:52 PM CDT [facility] EPITHELIAL CELLS, URINE 0-5 0 - 5 /hpf 09/26/2019 8:52 PM CDT [facility] HYALINE CAST 0-2 None Seen, 0-2 /lpf 09/26/2019 8:52 PM CDT [facility] Ascorbic Acid UA Positive(A) Negative 020 8:52 PM CDT [facility] Urine URINE SPECIMEN OBTAINED BY CLEAN CATCH PROCEDURE / Unknown Collection / Unknown 09/26/2019 3:00 PM CDT 09/26/2019 8:17 PM CDT us External Provider [facility] URINE ORDERABLES Final Re sult [facility] CLIA# [id number] [address] [place] [address] documented in this encounter Visit Diagnoses Diagnosis Unspecified abnormal findings in urine documented in this encounter
--- OUTSIDE RECORDS SUMMARY | 2024-11-04 16:17 | XMS_ITS | Encounter Summary ---
Author Organization [facility] Address [address] [place] [address] Care Team Providers Care Outboard Technician Name Role Phone Unavailable Primary Care Provider Unavailabl e Encounter Details Date Type Department Care Team (Late st Contact Info) Description 01/04/2006 Outpatient Historical [facility] Trauma and General Surgery [address] [facility] [place] [address] Jayden James MD [address] [facility] [address] [facility] [place] [address] Social History Tobacco Use Types Packs/Day Years Used Date Smoking Tobacco: Never Assessed Sex and Gender Information Value Date Recorded Sex Assigned at Not on file 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
--- OUTSIDE RECORDS SUMMARY | 2024-11-04 16:17 | XMS_ITS | Encounter Summary ---
Author Organization [employer] Address 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 Gender Identity Not on file Sexual [...] ORDERABLES Final Res ult Performing Organization Address [facility] Phone Number INTERFACE SYSTEM Refer to clinic/hospital [...] ORDERABLES Final Res ult Performing Organization Address [facility] Phone Number INTERFACE SYSTEM Refer to clinic/hospital [...] ORDERABLES Final Resu lt Performing Organization Address [facility] Phone Number INTERFACE SYSTEM Refer to clinic/hospital department * (ABNORMAL) POC GLUCOSE (01/08/2006 9:26 PM CDT) GLUCOSE POC 133(H) 65 - 109 mg/dL INTERFACE SYSTEM 01/08/2006 9:26 PM CDT José Fine MD POINT OF CARE TESTING Final Result Performing Organization Address [facility] Phone Number INTERFACE SYSTEM Refer to clinic/hospital department * (ABNORMAL) POC GLUCOSE (01/08/2006 5:25 PM CDT) GLUCOSE POC 125(H) 65 - 109 mg/dL INTERFACE SYSTEM 01/08/2006 5:25 PM CDT José Fine MD POINT OF CARE TESTING Final Result Performing Organization Address [facility] Phone Number INTERFACE SYSTEM Refer to clinic/hospital department * (ABNORMAL) POC GLUCOSE (01/08/2006 11:50 AM CDT) GLUCOSE POC 122(H) 65 - 109 mg/dL INTERFACE SYSTEM 01/08/2006 11:5 0 AM CDT us José Fine MD POINT OF CARE TESTING Final Result Performing Organization Address [facility] Phone Number INTERFACE SYSTEM Refer to clinic/hospital department * (ABNORMAL) POC GLUCOSE (01/08/2006 5:35 AM CDT) GLUCOSE POC 128(H) 65 - 109 mg/dL INTERFACE SYSTEM 01/08/2006 5:35 AM CDT us José Fine MD POINT OF CARE TESTING Final Result Performing Organization Address [facility] Phone Number INTERFACE SYSTEM Refer to clinic/hospital department * (ABNORMAL) POC GLUCOSE (01/07/2006 8:48 PM CDT) GLUCOSE POC 124(H) 65 - 109 mg/dL INTERFACE SYSTEM 01/07/2006 8:48 PM CDT us José Fine MD POINT OF CARE TESTING Final Result Performing Organization Address [facility] Phone Number INTERFACE SYSTEM Refer to clinic/hospital department * (ABNORMAL) POC GLUCOSE (01/07/2006 4:51 PM CDT) GLUCOSE POC 121(H) 65 - 109 mg/dL INTERFACE SYSTEM 01/07/2006 4:51 PM CDT us José Fine MD POINT OF CARE TESTING Final Result Performing Organization Address [facility] Phone Number INTERFACE SYSTEM Refer to clinic/hospital department * (ABNORMAL) POC GLUCOSE (01/07/2006 11:16 AM CDT) GLUCOSE POC 119(H) 65 - 109 mg/dL INTERFACE SYSTEM 01/07/2006 11:1 6 AM CDT us José Fine MD POINT OF CARE TESTING Final Result Performing Organization Address [facility] de Phone Number INTERFACE SYSTEM Refer to clinic/hospital department * (ABNORMAL) POC GLUCOSE (01/07/2006 6:24 AM CDT) GLUCOSE POC 114(H) 65 - 109 mg/dL INTERFACE SYSTEM 01/07/2006 6:24 AM CDT us José Fine MD POINT OF CARE TESTING Final Result Performing Organization Address [facility] de Phone Number [...] ORDERABLES Final Resu lt Performing Organization Address [facility] de Phone Number [...] ORDERABLES Final Resu lt Performing Organization Address [facility] de Phone Number INTERFACE SYSTEM Refer to clinic/hospital department * PHOSPHORUS (01/07/2006 5:30 AM CDT) PHOSPHORUS 3.1 2.5 - 4.5 mg/dL INTERFACE SYSTEM 01/07/2006 5:30 AM CDT Terry Cole MD CHEMISTRY ORDERABLES Final Resul t Performing Organization Address [facility] Phone Number INTERFACE SYSTEM Refer to clinic/hospital department * MAGNESIUM LEVEL (01/07/2006 5:30 AM CDT) MAGNESIUM 2.3 1.5 - 2.5 mg/dL INTERFACE SYSTEM 01/07/2006 5:30 AM CDT Terry Cole MD CHEMISTRY ORDERABLES Final Resul t Performing Organization Address [facility] Phone Number INTERFACE SYSTEM Refer to clinic/hospital [...] ORDERABLES Final Resul t Performing Organization Address [facility] de Phone Number INTERFACE SYSTEM Refer to clinic/hospital department * (ABNORMAL) POC GLUCOSE (01/07/2006 12:49 AM CDT) GLUCOSE POC 114(H) 65 - 109 mg/dL INTERFACE SYSTEM 01/07/2006 12:4 9 AM CDT us José Fine MD POINT OF CARE TESTING Final Result Performing Organization Address [facility] Co de Phone Number INTERFACE SYSTEM Refer to clinic/hospital department * (ABNORMAL) POC GLUCOSE (01/06/2006 5:40 PM CDT) COMMENT, GLU POC Notified RN INTERFACE SYSTEM GLUCOSE POC 128(H) 65 - 109 mg/dL INTERFACE SYSTEM 01/06/2006 5:40 PM CDT us José Fine MD POINT OF CARE TESTING Final Result Performing Organization Address [facility] Phone Number INTERFACE SYSTEM Refer to clinic/hospital department * (ABNORMAL) POC GLUCOSE (01/06/2006 11:43 AM CDT) COMMENT, GLU POC Notified RN INTERFACE SYSTEM GLUCOSE POC 120(H) 65 - 109 mg/dL INTERFACE SYSTEM 01/06/2006 11:4 3 AM CDT us José Fine MD POINT OF CARE TESTING Final Result Performing Organization Address [facility] de Phone Number INTERFACE SYSTEM Refer to clinic/hospital department * (ABNORMAL) POC GLUCOSE (01/06/2006 5:48 AM CDT) GLUCOSE POC 120(H) 65 - 109 mg/dL INTERFACE SYSTEM 01/06/2006 5:48 AM CDT us José Fine MD POINT OF CARE TESTING Final Result Performing Organization Address [facility] Co de Phone Number INTERFACE SYSTEM [...] ORDERABLES Final Resu lt Performing Organization Address [facility]/ZIP Co de Phone Number INTERFACE SYSTEM [...] ORDERABLES Final Resul t Performing Organization Address [facility] de Phone Number [...] ORDERABLES Final Resul t Performing Organization Address [facility]/ZIP Co de Phone Number INTERFACE SYSTEM Refer to clinic/hospital department * (ABNORMAL) POC GLUCOSE (01/06/2006 1:00 AM CDT) GLUCOSE POC 142(H) 65 - 109 mg/dL INTERFACE SYSTEM 01/06/2006 1:00 AM CDT José Fine MD POINT OF CARE TESTING Final Result Performing Organization Address [facility] Phone Number INTERFACE SYSTEM Refer to clinic/hospital department * (ABNORMAL) POC GLUCOSE (01/05/2006 5:49 PM CDT) GLUCOSE POC 137(H) 65 - 109 mg/dL INTERFACE SYSTEM 01/05/2006 5:49 PM CDT José Fine MD POINT OF CARE TESTING Final Result Performing Organization Address [facility] Phone Number INTERFACE SYSTEM Refer to clinic/hospital department * (ABNORMAL) POC GLUCOSE (01/05/2006 11:57 AM CDT) GLUCOSE POC 133(H) 65 - 109 mg/dL INTERFACE SYSTEM 01/05/2006 11:5 7 AM CDT José Fine MD POINT OF CARE TESTING Final Result Performing Organization Address [facility] Phone Number INTERFACE SYSTEM Refer to clinic/hospital department * (ABNORMAL) POC GLUCOSE (01/05/2006 5:59 AM CDT) GLUCOSE POC 142(H) 65 - 109 mg/dL INTERFACE SYSTEM 01/05/2006 5:59 AM CDT José Fine MD POINT OF CARE TESTING Final Result Performing Organization Address [facility] Phone Number INTERFACE SYSTEM Refer to clinic/hospital [...] 4:00 AM CDT [facility] [id number] HEMATOLOGY ORDERABLES Final Result Performing Organization Address [facility] Phone Number INTERFACE SYSTEM Refer to clinic/hospital [...] fL INTERFACE SYSTEM 01/05/2006 4:00 AM CDT [employer] HEMATOLOGY ORDERABLES Final Result Performing Organization Address [facility] Phone Number INTERFACE SYSTEM Refer to clinic/hospital [...] patients with mechanical heart valves or post SD. Pediatric (12 years and under): 1.5 - [...] for unfractionated heparin 01/05/2006 4:00 AM CDT [employer]injess[employer] HEMATOLOGY ORDERABLES Final Result Performing Organization Address [facility] Phone Number INTERFACE SYSTEM Refer to clinic/hospital department * PHOSPHORUS (01/05/2006 4:00 AM CDT) PHOSPHORUS 2.9 2.5 - 4.5 mg/dL INTERFACE SYSTEM 01/05/2006 4:00 AM CDT Luis Eduardo [employer]in[employer] CHEMISTRY ORDERABLES Final R esult Performing Organization Address [facility] Phone Number INTERFACE SYSTEM Refer to clinic/hospital department * MAGNESIUM LEVEL (01/05/2006 4:00 AM CDT) MAGNESIUM 2.2 1.5 - 2.5 mg/dL INTERFACE SYSTEM 01/05/2006 4:00 AM CDT [id number] CHEMISTRY ORDERABLES Final R esult Performing Organization Address [facility] Phone Number INTERFACE SYSTEM Refer to clinic/hospital [...] ORDERABLES Final R esult Performing Organization Address [facility] Phone Number INTERFACE SYSTEM Refer to clinic/hospital department * (ABNORMAL) POC GLUCOSE (01/04/2006 11:41 PM CDT) GLUCOSE POC 140(H) 65 - 109 mg/dL INTERFACE SYSTEM 01/04/2006 11:4 1 PM CDT us José Fine MD POINT OF CARE TESTING Final Result Performing Organization Address [facility] Phone Number INTERFACE SYSTEM Refer to clinic/hospital department * (ABNORMAL) POC GLUCOSE (01/04/2006 5:43 PM CDT) GLUCOSE POC 156(H) 65 - 109 mg/dL INTERFACE SYSTEM 01/04/2006 5:43 PM CDT us José Fine MD POINT OF CARE TESTING Final Result Performing Organization Address [facility] Phone Number INTERFACE SYSTEM Refer to clinic/hospital department * (ABNORMAL) POC GLUCOSE (01/04/2006 11:37 AM CDT) GLUCOSE POC 175(H) 65 - 109 mg/dL INTERFACE SYSTEM 01/04/2006 11:3 7 AM CDT us José Fine MD POINT OF CARE TESTING Final Result Performing Organization Address [facility] Phone Number INTERFACE SYSTEM Refer to clinic/hospital department * (ABNORMAL) POC GLUCOSE (01/04/2006 6:11 AM CDT) GLUCOSE POC 183(H) 65 - 109 mg/dL INTERFACE SYSTEM 01/04/2006 6:11 AM CDT José Fine MD POINT OF CARE TESTING Final Result Performing Organization Address [facility] Phone Number INTERFACE SYSTEM Refer to clinic/hospital [...] ORDERABLES F inal Result Performing Organization Address [facility] Phone Number INTERFACE SYSTEM Refer to clinic/hospital [...] patients with mechanical heart valves or post SD. Pediatric (12 years and under): 1.5 - [...] ORDERABLES F inal Result Performing Organization Address [facility] Phone Number INTERFACE SYSTEM Refer to clinic/hospital department * PHOSPHORUS (01/04/2006 4:20 AM CDT) PHOSPHORUS 2.5 2.5 - 4.5 mg/dL INTERFACE SYSTEM 01/04/2006 4:20 AM CDT us Rayray Wilcox MD CHEMISTRY ORDERABLES Fi nal Result Performing Organization Address [facility] Phone Number INTERFACE SYSTEM Refer to clinic/hospital department * MAGNESIUM LEVEL (01/04/2006 4:20 AM CDT) MAGNESIUM 2.0 1.5 - 2.5 mg/dL INTERFACE SYSTEM 01/04/2006 4:20 AM CDT Rayray Wilcox MD CHEMISTRY ORDERABLES Fi nal Result Performing Organization Address [facility] Phone Number INTERFACE SYSTEM Refer [...] ORDERABLES Final Re sult Performing Organization Address [facility]/ZIP Co de Phone Number INTERFACE SYSTEM Refer to clinic/hospital department * (ABNORMAL) POC GLUCOSE (01/04/2006 12:25 AM CDT) GLUCOSE POC 188(H) 65 - 109 mg/dL INTERFACE SYSTEM 01/04/2006 12:2 5 AM CDT José Fine MD POINT OF CARE TESTING Final Result Performing Organization Address [facility] de Phone Number INTERFACE SYSTEM Refer to clinic/hospital department * (ABNORMAL) POC GLUCOSE (01/03/2006 5:25 PM CDT) GLUCOSE POC 177(H) 65 - 109 mg/dL INTERFACE SYSTEM 01/03/2006 5:25 PM CDT José Fine MD POINT OF CARE TESTING Final Result Performing Organization Address [facility] de Phone Number INTERFACE SYSTEM Refer to clinic/hospital department * (ABNORMAL) POC GLUCOSE (01/03/2006 11:34 AM CDT) GLUCOSE POC 148(H) 65 - 109 mg/dL INTERFACE SYSTEM 01/03/2006 11:3 4 AM CDT José Fine MD POINT OF CARE TESTING Final Result Performing Organization Address [facility] de Phone Number [...] ORDERABLES F inal Result Performing Organization Address [facility] Phone Number INTERFACE SYSTEM Refer to clinic/hospital [...] ORDERABLES F inal Result Performing Organization Address [facility] Phone Number INTERFACE SYSTEM Refer to clinic/hospital [...] ORDERABLES F inal Result Performing Organization Address [facility] Phone Number INTERFACE SYSTEM Refer to clinic/hospital [...] patients with mechanical heart valves or post [place]. Pediatric (12 years and under): 1.5 - [...] ORDERABLES F inal Result Performing Organization Address [facility] Number INTERFACE SYSTEM Refer to clinic/hospital department * PHOSPHORUS (01/03/2006 10:46 AM CDT) PHOSPHORUS 3.3 2.5 - 4.5 mg/dL INTERFACE SYSTEM 01/03/2006 10:4 6 AM CDT Rayray Wilcox MD CHEMISTRY ORDERABLES Fi nal Result Performing Organization Address [facility] Phone Number INTERFACE SYSTEM Refer to clinic/hospital department * MAGNESIUM LEVEL (01/03/2006 10:46 AM CDT) MAGNESIUM 1.8 1.5 - 2.5 mg/dL INTERFACE SYSTEM 01/03/2006 10:4 6 AM CDT Rayray Wilcox MD CHEMISTRY ORDERABLES Fi nal Result Performing Organization Address [facility] Phone Number INTERFACE SYSTEM Refer to clinic/hospital [...] CHEMISTRY ORDERABLES nal Result Performing Organization Address [facility] Phone Number INTERFACE SYSTEM Refer to clinic/hospital [...] patients with mechanical heart valves or post [place]. Pediatric (12 years and under): 1.5 - [...] on the [facility] [place] at: [email or web address] Select: Drugs of Abuse ? [facility] To inquire about any potential cross-reactivity of [...] URINE ORDERABLES Final Result Performing Organization Address [facility]/ZIP Co de Phone Number INTERFACE SYSTEM [...]
--- OUTSIDE RECORDS SUMMARY | 2024-11-04 16:17 | XMS_ITS | Encounter Summary ---
Author Organization [employer] Address 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 Gender Identity Not on file Sexual Orientation [...] ORDERABLES Final Re sult Performing Organization Address [facility] Phone Number INTERFACE SYSTEM Refer to clinic/hospital department * C-REACTIVE PROTEIN (04/05/2006 5:15 AM CDT) Pathologist [facility] [place] CRP 0.2 0.0 - 0.8 mg/dL INTERFACE SYSTEM 04/05/2006 5:15 AM CDT [facility] CHEMISTRY ORDERABLES Final Res ult Performing Organization Address [facility] Phone Number INTERFACE SYSTEM Refer to clinic/hospital department * (ABNORMAL) VANCOMYCIN LEVEL TROUGH (03/31/2006 11:15 AM CDT) Pathologist [facility] [place] VANCOMYCIN, TROUGH 18.3(AA) 5.0 - 15.0 ug/mL INTERFACE SYSTEM Comment: Vancomycin Trough Toxic Level= >15.0 ug/mL Results called to Amy_ at 03/31/2006 12:05 PM and read back verified. 03/31/2006 11:1 5 AM CDT Sushil Arroyo MD CHEMISTRY ORDERABLES Final R esult Performing Organization Address [facility] Phone Number INTERFACE SYSTEM Refer to clinic/hospital department * (ABNORMAL) CBC WITH DIFFERENTIAL (03/29/2006 5:15 AM CDT) Pathologist [facility] [place] NEUTROPHILS 64 45 - 70 % INTERFAC [...] Res ult Performing Organization Address [facility] Phone Number INTERFACE SYSTEM Refer to [...] Res ult Performing Organization Address [facility] Number INTERFACE SYSTEM Refer to clinic/hospital department * C-REACTIVE PROTEIN (03/29/2006 5:15 AM CDT) CRP 0.3 0.0 - 0.8 mg/dL INTERFACE SYSTEM 03/29/2006 5:1 5 AM CDT us Keenan Mandujano MD CHEMISTRY ORDERABLES Final Resu lt Performing Organization Address [facility] Phone Number INTERFACE SYSTEM Refer to [...] Resu lt Performing Organization Address [facility] Phone Number INTERFACE SYSTEM Refer to [...] Re sult Performing Organization Address [facility] Phone Number INTERFACE SYSTEM Refer to [...] INTERFACE SYSTEM 03/24/2006 12:1 0 PM CDT [employer] Zaid HEMATOLOGY ORDERABLES Final Re sult Performing Organization Address [facility] Phone Number INTERFACE SYSTEM Refer to clinic/hospital department * VANCOMYCIN LEVEL TROUGH (03/24/2006 12:10 PM CDT) VANCOMYCIN, TROUGH 11.3 5.0 - 15.0 ug/mL INTERFACE SYSTEM Comment: Vancomycin Trough Toxic Level= >15.0 ug/mL 03/24/2006 12:1 0 PM CDT [employer] Zaid CHEMISTRY ORDERABLES Final Res ult Performing Organization Address [facility] Phone Number INTERFACE SYSTEM Refer to clinic/hospital department * C-REACTIVE PROTEIN (03/24/2006 12:10 PM CDT) CRP 0.6 0.0 - 0.8 mg/dL INTERFACE SYSTEM 03/24/2006 12:1 0 PM CDT [employer] Zaid CHEMISTRY ORDERABLES Final Res ult Performing Organization Address [facility] Phone Number INTERFACE SYSTEM Refer to [...] Final Res ult Performing Organization Address [facility] Co de Phone Number INTERFACE [...] INTERFACE SYSTEM 03/23/2006 11:3 0 AM CDT [employer] HEMATOLOGY ORDERABLES Final Re sult Performing Organization Address [facility] de Phone Number INTERFACE SYSTEM Refer to clinic/hospital department * (ABNORMAL) CBC WITH DIFFERENTIAL (03/23/2006 11:30 AM CDT) Pathologist [facility] [place] WBC 6.1 4.0 - 9.8 K/uL INTERFACE [...] INTERFACE SYSTEM 03/23/2006 11:3 0 AM CDT [employer] HEMATOLOGY ORDERABLES Final Re sult Performing Organization Address [facility] de Phone Number INTERFACE SYSTEM Refer to clinic/hospital department * VANCOMYCIN LEVEL TROUGH (03/23/2006 11:30 AM CDT) VANCOMYCIN, TROUGH 6.2 5.0 - 15.0 ug/mL INTERFACE SYSTEM Comment: Vancomycin Trough Toxic Level= >15.0 ug/mL 03/23/2006 11:3 0 AM CDT [employer] Zaid CHEMISTRY ORDERABLES Final Res ult Performing Organization Address [facility] Phone Number INTERFACE SYSTEM Refer to clinic/hospital department * (ABNORMAL) C-REACTIVE PROTEIN (03/23/2006 11:30 AM CDT) CRP 1.0(H) 0.0 - 0.8 mg/dL INTERFACE SYSTEM 03/23/2006 11:3 0 AM CDT us [facility] CHEMISTRY ORDERABLES Final Res ult Performing Organization Address [facility] Phone Number INTERFACE SYSTEM Refer [...] INTERFACE SYSTEM 03/23/2006 11:3 0 AM CDT [facility]ower[facility] CHEMISTRY ORDERABLES Final Res ult Performing Organization Address [facility] Phone Number INTERFACE SYSTEM Refer to [...] R esult Performing Organization Address [facility] Phone Number INTERFACE SYSTEM Refer to [...] /HPF INTERFACE SYSTEM 03/22/2006 8:30 PM CDT [employer] Zaid URINE ORDERABLES Final Result Performing Organization Address [facility] Phone Number INTERFACE SYSTEM Refer to [...] MD CHEMISTRY ORDERABLES Final R [facility] Performing Organization Address [facility] de Phone Number INTERFACE SYSTEM Refer [...] Final R esult Performing Organization Address [facility] Co de Phone Number INTERFACE [...] Final Result Performing Organization Address [facility] Phone Number INTERFACE SYSTEM Refer to [...] Final Result Performing Organization Address [facility] Phone Number INTERFACE SYSTEM Refer to [...] R esult Performing Organization Address [facility] Phone Number INTERFACE SYSTEM Refer to [...] Resul t Performing Organization Address [facility] Phone Number INTERFACE SYSTEM Refer to clinic/hospital department documented in this encounter Visit Diagnoses Diagnosis Other specified rehabilitation procedure(V57.89)- Primary Other specified rehabilitation procedure documented in this encounter
--- OUTSIDE RECORDS SUMMARY | 2024-11-04 16:17 | XMS_ITS | Encounter Summary ---
Author Organization [facility] Address [address] [place] [address] Care Team Providers Care Cuff Cutter Name Role Phone Unavailable Primary Care Provider Unavailabl e Encounter Details Date Type Department Care Team (Late st Contact Info) Description 01/08/2006 Outpatient Historical [facility] Trauma and General Surgery [address] [facility] [address] [facility] [place] [address] Jayden James MD [address] [facility] [address] [facility] [place] [address] Social History Tobacco Use Types Packs/Day Years Used Date Smoking Tobacco: Never Assessed Sex and Gender Information Value Date Recorded Sex Assigned at Not on file Legal Sex Male 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
--- OUTSIDE RECORDS SUMMARY | 2024-11-04 16:17 | XMS_ITS | Encounter Summary ---
Author Organization [facility] Address [address] [place] [address] Care Team Providers Care Fashion Marketer Name Role Phone Unavailable Primary Care Provider Unavailabl e Encounter Details Date Type Department Care Team (Latest Contact Info) Description 03/15/2006 Inpatient Historical HIS PATIENT IN A BED Yenny Hauser MD NO ADDRESS ON FILE Devan Agrawal MD [address] [facility] 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 Gender Identity Not on file Sexual Orientation [...] ORDERABLES Final R esult Performing Organization Address [facility] Phone Number INTERFACE SYSTEM Refer [...] fL INTERFACE SYSTEM 03/19/2006 4:38 AM CDT Yneny Hauser MD HEMATOLOGY ORDERABLES Final R esult Performing Organization Address [facility] Phone Number INTERFACE SYSTEM Refer to clinic/hospital department * MAGNESIUM LEVEL (03/19/2006 4:38 AM CDT) MAGNESIUM 1.7 1.5 - 2.5 mg/dL INTERFACE SYSTEM 03/19/2006 4:38 AM CDT Yenny Hauser MD CHEMISTRY ORDERABLES Final Re sult Performing Organization Address [facility] Co de Phone [...] ORDERABLES Final Re sult Performing Organization Address [facility] Co de Phone Number INTERFACE SYSTEM Refer to clinic/hospital department * VANCOMYCIN LEVEL TROUGH (03/18/2006 11:30 AM CDT) Pathologist [facility] VANCOMYCIN, TROUGH 11.5 5.0 - 15.0 ug/mL INTERFACE SYSTEM Comment: Vancomycin Trough Toxic Level= >15.0 ug/mL 03/18/2006 11:3 0 AM CDT Yenny Hauser MD CHEMISTRY ORDERABLES Final Re sult Performing Organization Address [facility] Co de Phone Number INTERFACE SYSTEM Refer to clinic/hospital department * (ABNORMAL) CBC WITH DIFFERENTIAL (03/18/2006 9:08 AM CDT) Pathologist [facility] NEUTROPHILS 76(H) 45 - 70 % INTERFAC [...] ORDERABLES Final Res ult Performing Organization Address [facility] de Phone Number INTERFACE SYSTEM Refer [...] Final Resu lt Performing Organization Address [facility] Phone Number INTERFACE SYSTEM Refer [...] ORDERABLES Final Result Performing Organization Address [facility] Phone Number INTERFACE SYSTEM Refer [...] ORDERABLES Final Result Performing Organization Address [facility] Phone Number INTERFACE SYSTEM Refer to clinic/hospital department * (ABNORMAL) C-REACTIVE PROTEIN (03/17/2006 4:45 AM CDT) CRP 2.4(H) 0.0 - 0.8 mg/dL INTERFACE SYSTEM 03/17/2006 4:45 AM CDT Historical Provider CHEMISTRY ORDERABLES Final R esult Performing Organization Address [facility] Phone Number INTERFACE SYSTEM Refer [...] ORDERABLES Final R esult Performing Organization Address [facility] Phone Number INTERFACE SYSTEM Refer to clinic/hospital department * (ABNORMAL) ACETONE QUALITATIVE (03/16/2006 6:30 PM CDT) ACETONE QUAL 2+ (30 mg/dL)(A) Neg (<10 mg/dL) INTERFACE SYSTEM 03/16/2006 6:30 PM CDT us Historical Provider CHEMISTRY ORDERABLES Final R esult Performing Organization Address [facility] Phone Number INTERFACE SYSTEM Refer to clinic/hospital department * LACTIC ACID (03/16/2006 6:30 PM CDT) LACTIC ACID 1.0 0.5 - 2.2 mmol/L INTERFACE SYSTEM 03/16/2006 6:30 PM CDT us Historical Provider CHEMISTRY ORDERABLES Final R esult Performing Organization Address [facility] Phone Number INTERFACE SYSTEM Refer [...] Final Resu lt Performing Organization Address [facility] Phone Number INTERFACE SYSTEM Refer [...] patients with mechanical heart valves or post AL. Pediatric (12 years and under): 1.5 - [...] HEMATOLOGY ORDERABLES Final Result Performing Organization Address [facility] Phone Number INTERFACE SYSTEM Refer [...] ORDERABLES Final R esult Performing Organization Address [facility] de Phone Number INTERFACE SYSTEM Refer [...] Final Res ult Performing Organization Address [facility] Phone Number INTERFACE SYSTEM Refer [...] Final Res ult Performing Organization Address [facility] de Phone Number INTERFACE SYSTEM Refer [...]
--- OUTSIDE RECORDS SUMMARY | 2024-11-04 16:17 | XMS_ITS | Encounter Summary ---
Author Organization [facility] Address [address] [place] [address] Care Team Providers Care Fitter Welder Name Role Phone Unavailable Primary Care Provider Unavailabl e Encounter Details Date Type Department Care Team (Late st Contact Info) Description 01/06/2006 Outpatient Historical [facility] Trauma and General Surgery [address] [facility] [address] [facility] [place] [address] Jayden James MD [address] [facility] [address] [facility] [place] [address] Social History Tobacco Use Types Packs/Day Years Used Date Smoking Tobacco: Never Assessed Sex and Gender Information Value Date Recorded Sex Assigned at Not on file 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
--- OUTSIDE RECORDS SUMMARY | 2024-11-04 16:17 | XMS_ITS | Encounter Summary ---
Author Organization [facility] Address [address] [place] [address] Care Team Providers Care Pharmacy Intake Coordinator Name Role Phone Unavailable Primary Care Provider Unavailabl e Encounter Details Date Type Department Care Team (Late st Contact Info) Description 01/11/2006 Outpatient Historical [facility] Trauma and General Surgery [address] [facility] [address] [phone] [place] [address] [place] [address] Social History Tobacco Use Types Packs/Day Years Used Date Smoking Tobacco: Never Assessed Sex and Gender Information Value Date Recorded Sex Assigned at Not on file Legal Sex Male 3:46 AM CLIENT CARE 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
--- OUTSIDE RECORDS SUMMARY | 2024-11-04 16:17 | XMS_ITS | Encounter Summary ---
Author Organization [facility] Address 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
--- OUTSIDE RECORDS SUMMARY | 2024-11-04 16:17 | XMS_ITS | Encounter Summary ---
Author Organization [facility] Address [address] [place] [address] Care Team Providers Care College Athlete Name Role Phone Unavailable Primary Care Provider Unavailabl e Encounter Details Date Type Department Care Team (Late st Contact Info) Description 01/12/2006 Outpatient Historical [facility] Trauma and General Surgery [address] [facility] [address] [phone] [place] [address] [place] [address] Social History Tobacco Use Types Packs/Day Years Used Date Smoking Tobacco: Never Assessed Sex and Gender Information Value Date Recorded Sex Assigned at Not on file Legal Sex Male 3:46 AM EVENTS SOLUTIONS 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
--- OUTSIDE RECORDS SUMMARY | 2024-11-04 16:17 | XMS_ITS | Encounter Summary ---
Author Organization [facility] Address [address] [place] [address] Care Team Providers Care Global Manager Name Role Phone Unavailable Primary Care Provider Unavailabl e Encounter Details Date Type Department Care Team (Late st Contact Info) Description 01/11/2006 Outpatient Historical [facility] Trauma and General Surgery [address] [phone] [place] [address] [place] [address] Social History Tobacco Use Types Packs/Day Years Used Date Smoking Tobacco: Never Assessed Sex and Gender Information Value Date Recorded Sex Assigned at Not on file Legal Sex Male 3:46 AM SHELLAC POLISHER Gender Identity Not on file Sexual Orientation Not on file documented as of this encounter Plan of Treatment Not on file documented as of this encounter Visit Diagnoses Not on filedocumented in this encounter
--- OUTSIDE RECORDS SUMMARY | 2024-11-04 16:17 | XMS_ITS | Encounter Summary ---
Author Organization [facility] Address [address] [place] [address] Care Team Providers Care Psych Nurse Name Role Phone Unavailable Primary Care Provider Unavailabl e Encounter Details Date Type Department Care Team (Late st Contact Info) Description 01/10/2006 Outpatient Historical [facility] Trauma and General Surgery [address] [facility] [address] [address] [phone] [place] [address] [place] [address] Social History Tobacco Use Types Packs/Day Years Used Date Smoking Tobacco: Never Assessed Sex and Gender Information Value Date Recorded Sex Assigned at Not on file Legal Sex Male 3:46 AM NEGATIVE SPOTTER Gender Identity Not on file Sexual Orientation Not on file documented as of this encounter Plan of Treatment Not on file documented as of this encounter Visit Diagnoses Not on filedocumented in this encounter
--- OUTSIDE RECORDS SUMMARY | 2024-11-04 16:17 | XMS_ITS | Clinical Summary ---
Author Organization [facility] Address [address] [place] [address] Care Team Providers Care Belt Builder Name Role Phone Unavailable Primary Care Provider [...] daily. 06/14/20 Active naloxone (NARCAN) 4 mg/spray Spring, Non-Aerosol Administer 4 mg in each nostril [...] (04/21/2023): Last Assessment & Plan: H/o L FLOOR PLAN ADJUSTER infarct 2019, continue asa/statin Urinary tract infection [...] that has since passed. Urine cx from [facility] on 05/04 also growing pseudomonas, resistant [...] to reach son and obtained collateral from [facility] - CT Head today. - Fall [...] oxycodone prn. Baclofen pump rx'd by the [facility]. Iron deficiency anemia, unspecified 10/26/2012 Gastric [...] Plan: Uses wheelchair at baseline. Resides at [facility]. Has baclofen pump/neurostimulator in place. C/b [...] file Legal Sex Male 3:46 AM DRY CLEANER Gender Identity Not on file Sexual Orientation [...] ZOSTER VACCINE Completed 12/11/2020, 10/10/2020 Insurance [place]ICAID [place]NA[place] CARE
--- OUTSIDE RECORDS SUMMARY | 2024-11-04 16:17 | XMS_ITS | Encounter Summary ---
Author Organization [facility] Address [address] [place] [address] Care Team Providers Care Director Geothermal Operations Name Role Phone Unavailable Primary Care Provider Unavailabl e Encounter Details Date Type Department Care Team (Late st Contact Info) Description 05/13/2019 Lab Requisition [facility] Services [address] [place] [address] [facility], External Provider [address] [place] [address] Other fatigue Social History Tobacco Use Types Packs/Day Years Used Date Smoking Tobacco: Never Assessed Sex and Gender Information Value Date Recorded Sex Assigned at Not on file Legal Sex Male 3:46 AM ENDOSCOPY SPECIALTY TECHNICIAN Gender Identity Not on file Sexual Orientation Not on file documented as of this encounter Plan of Treatment Not on file documented as of this encounter Procedures Procedure Name Priority Date/Time Associated Diagnosis Comments CBC WITH DIFFERENTIAL Stat 05/13/2019 4:50 PM ENDOSCOPY SPECIALTY TECHNICIAN Other fatigue BASIC METABOLIC PANEL Stat 05/13/2019 4:50 PM ENDOSCOPY SPECIALTY TECHNICIAN Other fatigue documented in this encounter Results * (ABNORMAL) CBC WITH DIFFERENTIAL (05/13/2019 4:50 PM ENDOSCOPY SPECIALTY TECHNICIAN) [facility] WBC 6.1 4.5 - 10.5 K/uL 05/13/2019 9:52 PM ENDOSCOPY SPECIALTY TECHNICIAN [facility] RBC 4.04(L) 4.50 - 5.40 M/uL 05/13/2019 9:52 PM ENDOSCOPY SPECIALTY TECHNICIAN [facility] HEMOGLOBIN 12.1(L) 13.6 - 16.5 g/dL 05/13/2019 9:52 PM ENDOSCOPY SPECIALTY TECHNICIAN [facility] HEMATOCRIT 37.1(L) 40.0 - 48.0 % 05/13/2019 9:52 PM [facility] MCV 91.7 82.0 - 99.0 fL 05/13/2019 9:52 PM [facility] MCH 30.0 27.8 - 34.5 pg 05/13/2019 9:52 PM [facility] MCHC 32.7 32.5 - 35.5 g/dL 05/13/2019 9:52 PM [facility] RDW 14.9(H) 11.5 - 14.5 % 05/13/2019 9:52 PM [facility] PLATELETS 162 160 - 420 K/uL 05/13/2019 9:52 PM [facility] [employer] [facility] MPV 9.8 8.7 - 12.7 fL 05/13/2019 9:52 PM [facility] NEUTROPHILS 70 45 - 70 % 05/13/2019 9:52 PM [facility] LYMPHOCYTES 16 16 - 45 % 05/13/2019 9:52 PM [facility] MONOCYTES 10 3 - 13 % 05/13/2019 9:52 PM [facility] EOSINOPHILS 4 0 - 7 % 05/13/2019 9:52 PM [facility] BASOPHILS 1 0 - 2 % 05/13/2019 9:52 PM [facility] [employer] [facility] NEUTROPHIL ABSOLUTE 4.20 1.90 - 7.00 K/uL 05/13/2019 9:52 PM [facility] [employer] [facility] LYMPHOCYTE ABSOLUTE 0.90 K/uL 05/13/2019 9:52 PM [facility] MONOCYTE ABSOLUTE 0.60 K/uL 05/13/2019 9:52 PM [facility] EOSINOPHIL ABSOLUTE 0.30 0.00 - 0.70 K/uL 05/13/2019 9:52 PM [facility] BASOPHILS ABSOLUTE 0.00 K/uL 05/13/2019 9:52 PM [facility] [employer] [facility] Blood BLOOD SPECIMEN / Unknown Collection / Unknown 05/13/2019 4:50 PM ENDOSCOPY SPECIALTY TECHNICIAN 05/13/2019 9:42 PM ENDOSCOPY SPECIALTY TECHNICIAN us External Provider [facility] HEMATOLOGY ORDERABLES Fin al Result [facility] [employer] [facility] LESTER# [id number] [place] [address] * (ABNORMAL) BASIC METABOLIC PANEL (05/13/2019 4:50 PM ENDOSCOPY SPECIALTY TECHNICIAN) SODIUM 143 136 - 145 mmol/L 05/13/2019 10:11 PM [facility] [employer] [facility] POTASSIUM 4.2 3.4 - 5.1 mmol/L 05/13/2019 10:11 PM [facility] [employer] [facility] CHLORIDE 104 98 - 107 mmol/L 05/13/2019 10:11 PM [facility] CO2 27 22 - 29 mmol/L 05/13/2019 10:11 PM [facility] CALCIUM 8.5(L) 8.6 - 10.4 mg/dL 05/13/2019 10:11 PM [facility] BUN 24(H) 6 - 20 mg/dL 05/13/2019 10:11 PM [facility] CREATININE 1.09 0.70 - 1.20 mg/dL 05/13/2019 10:11 PM [facility] Comment:The GFR result is no t clinically significant on patients <18 or >70 years of age. GLUCOSE 96 74 - 99 mg/dL 05/13/2019 10:11 PM [facility] [employer] [facility] GFR >60 mL/min/1.7 3 sq meter 05/13/2019 10:11 PM [facility] [employer] [facility] Comment: eGFR has not been validated [...] mL/min/1.7 3 sq meter 05/13/2019 10:11 PM ENDOSCOPY SPECIALTY TECHNICIAN [facility] SERVICES [facility] ANION GAP 12 8 - 16 mmol/L 05/13/2019 10:11 PM ENDOSCOPY SPECIALTY TECHNICIAN [facility] Blood BLOOD SPECIMEN / Unknown Collection / Unknown 05/13/2019 4:50 PM ENDOSCOPY SPECIALTY TECHNICIAN 05/13/2019 9:42 PM ENDOSCOPY SPECIALTY TECHNICIAN External Provider [facility] CHEMISTRY ORDERABLES Johanne l Result [facility] CLIA# [id number] [place] [address] documented in this encounter Visit Diagnoses Diagnosis Other fatigue documented in this encounter
--- OUTSIDE RECORDS SUMMARY | 2024-11-04 16:17 | XMS_ITS | Encounter Summary ---
Author Organization [facility] Address [address] [place] [address] Care Team Providers Care Automatic Maintainer Name Role Phone Unavailable Primary Care Provider Unavailabl e Encounter Details Date Type Department Care Team (Late st Contact Info) Description 01/09/[address] 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
== END 2024-11-04 14:04 ==
PROVIDERS: Emergency Medicine; Emergency Provider Emergency Medicine; PCP Internal Medicine
DX: N39.0 Urinary tract infection, site not specified (principal); G82.54 Quadriplegia, C5-C7 incomplete; Z86.718 Personal history of other venous thrombosis and embolism; K21.9 Gastro-esophageal reflux disease without esophagitis; I10 Essential (primary) hypertension; Z87.891 Personal history of nicotine dependence; Z20.822 Contact with and (suspected) exposure to COVID-19
CPT/HCPCS: 36415; 71046; 80053; 81001; 85025; 87086; 87637; 93005; 96365; 99284; J1956

== ENCOUNTER 2025-01-14 09:45 | Emergency (ER) | payer MEDICARE, OTHER, MEDICAID, SELFPAY ==
--- NOTE | ~2025-01-14 | CT_ITS ---
Non-contrast CT scan of the Abdomen and Pelvis Clinical indication: Penile pain, quadriplegia Technique: 2.5 mm axial scans were obtained through the abdomen and pelvis without intravenous or or al contrast. Dose reduction technique was used on this scan by utilizing automated exposure control a nd iterative reconstruction technique. The dose-length product (DLP) was 748.64 mGy-cm. COMPARISON: 06/11/2024 Findings: Images through the lung bases reveal minimal right pleural effusion with bibasilar atelect asis and/or scarring. Probable pleural plaque at the anterior left lung base. There is no evidence of renal or ureteral calculi. The kidneys and the ureters are nondilated. Stable coarsely peripherally calcified lesions of the abdomen liver. Small gallstones are present. Th e spleen, pancreas, and adrenals appear normal. There are atherosclerotic calcifications of the aorta . IVC filter in place. There is no evidence of bowel obstruction. Images through the pelvis were performed. There is no evidence of ascites or lymphadenopathy. Suprapu bic catheter in place. No pelvic mass. Possible chronic osteomyelitis of the coccyx, stable in appear ance from prior exam. Impression: No definite acute abnormality seen. Cholelithiasis. Possible chronic osteomyelitis of the coccyx, stable in appearance from prior exam. Suprapubic catheter in place. Chronic findings in the lung bases, as above. Reviewed, dictated and finalized at [facility]. Impression: No definite acute abnormality seen. Cholelithiasis. Possible chronic osteomyelitis of the coccyx, stable in appearance from prior e xam. Suprapubic catheter in place. Chronic findings in the lung bases, as above.
[2025-01-14 09:40] VITALS: BP 133/61; PULSE 71; RESP 16; TEMP 36.7; O2SAT 97
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
--- OUTSIDE RECORDS SUMMARY | 2025-01-14 10:13 | XMS_ITS | Encounter Summary ---
Author Organization [facility] Address [address] [place] [address] Care Team Providers Care Salvage Grinder Name Role Phone Unavailable Primary Care Provider Unavailabl e Encounter Details Date Type Department Care Team (Late st Contact Info) Description 09/26/2019 Lab Requisition [facility] Laboratory Services [id number] [place] [address] [facility], External Provider [id number] [place] [address] Unspecified abnormal findings in urine Social History Tobacco Use Types Packs/Day Years Used Date Smoking Tobacco: Never Assessed Sex and Gender Information Value Date Recorded Sex Assigned at Not on file 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 Gender Identity Not on file Sexual [...] - 145 mmol/L 09/26/2019 8:53 PM CDT [facility] - [facility] POTASSIUM 5.1 3.4 - 5.1 mmol/L 09/26/2019 8:53 PM CDT [facility] CHLORIDE 105 98 - 107 mmol/L 09/26/2019 8:53 PM [facility] CO2 23 22 - 29 mmol/L 09/26/2019 8:53 PM [facility] CALCIUM 8.6 8.6 - 10.4 mg/dL 09/26/2019 8:53 PM [facility] BUN 28(H) 6 - 20 mg/dL 09/26/2019 8:53 PM [facility] CREATININE 1.07 0.67 - 1.17 mg/dL 09/26/2019 8:53 PM [facility] Comment:The GFR result is no t clinically significant on patients <18 or >70 years of age. GLUCOSE 83 74 - 99 mg/dL 09/26/2019 8:53 PM [facility] TOTAL PROTEIN 6.7 6.3 - 8.7 g/dL 09/26/2019 8:53 PM [facility] ALBUMIN 4.2 3.5 - 5.2 g/dL 09/26/2019 8:53 PM [facility] BILIRUBIN TOTAL 0.3 0.2 - 1.3 mg/dL 09/26/2019 8:53 PM [facility] ALKALINE PHOSPHATASE 99 40 - 150 U/L 09/26/2019 8:53 PM [facility] AST 18 0 - 41 U/L 09/26/2019 8:53 PM [facility] ALT 18 0 - 41 U/L 09/26/2019 8:53 PM [facility] GFR >60 mL/min/1.7 3 sq meter 09/26/2019 8:53 PM [facility] Comment: eGFR has not been validated [...] 3 sq meter 09/26/2019 8:53 PM CDT [facility] ANION GAP 14 8 - 16 mmol/L 09/26/2019 8:53 PM CDT [facility] Blood BLOOD SPECIMEN / Unknown Collection / Unknown 09/26/2019 3:44 PM CDT 09/26/2019 8:17 PM CDT us External Provider [facility] CHEMISTRY ORDERABLES Johanne l Result [facility] CLIA# [id number] [place] [address] * (ABNORMAL) CBC WITH DIFFERENTIAL (09/26/2019 3:44 PM CDT) WBC 6.6 4.5 - 10.5 K/uL 09/26/2019 8:26 PM CDT [facility] RBC 3.80(L) 4.50 - 5.40 M/uL 09/26/2019 8:26 PM CDT [facility] HEMOGLOBIN 11.5(L) 13.6 - 16.5 g/dL 09/26/2019 8:26 PM CDT [facility] HEMATOCRIT 34.3(L) 40.0 - 48.0 % 09/26/2019 8:26 PM CDT [facility] MCV 90.2 82.0 - 99.0 fL 09/26/2019 8:26 PM CDT [facility] MCH 30.2 27.8 - 34.5 pg 09/26/2019 8:26 PM CDT [facility] MCHC 33.5 32.5 - 35.5 g/dL 09/26/2019 8:26 PM CDT [facility] RDW 15.8(H) 11.5 - 14.5 % 09/26/2019 8:26 PM CDT [facility] PLATELETS 175 160 - 420 K/uL 09/26/2019 8:26 PM CDT [facility] MPV 10.2 8.7 - 12.7 fL 09/26/2019 8:26 PM CDT [facility] NEUTROPHILS 68 45 - 70 % 09/26/2019 8:26 PM CDT [facility] LYMPHOCYTES 16 16 - 45 % 09/26/2019 8:26 PM CDT [facility] MONOCYTES 10 3 - 13 % 09/26/2019 8:26 PM CDT [facility] EOSINOPHILS 5 0 - 7 % 09/26/2019 8:26 PM CDT [facility] BASOPHILS 1 0 - 2 % 09/26/2019 8:26 PM CDT [facility] NEUTROPHIL ABSOLUTE 4.50 1.90 - 7.00 K/uL 09/26/2019 8:26 PM CDT [facility] LYMPHOCYTE ABSOLUTE 1.10 0.70 - 4.50 K/uL 09/26/2019 8:26 PM CDT [facility] MONOCYTE ABSOLUTE 0.60 0.10 - 1.30 K/uL 09/26/2019 8:26 PM CDT [facility] EOSINOPHIL ABSOLUTE 0.40 0.00 - 0.70 K/uL 09/26/2019 8:26 PM CDT [facility] BASOPHILS ABSOLUTE 0.00 0.00 - 0.20 K/uL 09/26/2019 8:26 PM CDT [facility] Blood BLOOD SPECIMEN / Unknown Collection / Unknown 09/26/2019 3:44 PM CDT 09/26/2019 8:17 PM CDT us External Provider [facility] HEMATOLOGY ORDERABLES Fin al Result [facility] CLIA# [id number] [place] [address] * (ABNORMAL) URINALYSIS WITH REFLEX MICROSCOPIC (09/26/2019 3:00 PM CDT) COLOR UA Yellow Pale to Dark Yellow 09/26/2019 8:52 PM CDT [facility] CLARITY UA Slightly Cloudy(A) Clear 09/26/2019 8:52 PM CDT [facility] SPECIFIC GRAVITY UA 1.019 1.003 - 1.035 09/26/2019 8:52 PM CDT [facility] PH UA 5.0 5.0 - 8.0 09/26/2019 8:52 PM CDT [facility] LEUKOCYTE ESTERASE UA Negative Negative 09/26/2019 8:52 PM CDT [facility] NITRITE UA Negative Negative 09/26/2019 8:52 PM CDT [facility] PROTEIN UA Negative Negative 09/26/2019 8:52 PM CDT [facility] GLUCOSE UA Negative Negative 09/26/2019 8:52 PM CDT [facility] KETONES UA Negative Negative 09/26/2019 8:52 PM CDT [facility] UROBILINOGEN UA Normal <2.0 mg/dL 0 8:52 PM CDT [facility] BILIRUBIN UA Negative Negative 09/26/2019 8:52 PM CDT [facility] BLOOD UA Negative Negative 09/26/2019 8:52 PM CDT [facility] Comment:Ascorbic acid may ca use false negative results for blood. A microscopic review was reflexed to rule out this interference. WBC UA 0-2 0 - 2 /hpf 09/26/2019 8:52 PM [facility] [place] [place] RBC UA 0-2 0 - 2 /hpf 09/26/2019 8:52 PM CDT [facility] BACTERIA UA 1+(A) Negative /hpf 09/26/2019 8:52 PM CDT [facility] EPITHELIAL CELLS, URINE 0-5 0 - 5 /hpf 09/26/2019 8:52 PM CDT [facility] HYALINE CAST 0-2 None Seen, 0-2 /lpf 09/26/2019 8:52 PM CDT [facility] Ascorbic Acid UA Positive(A) Negative 020 8:52 PM CDT [facility] Urine URINE SPECIMEN OBTAINED BY CLEAN CATCH PROCEDURE / Unknown Collection / Unknown 09/26/2019 3:00 PM CDT 09/26/2019 8:17 PM CDT us External Provider [facility] URINE ORDERABLES Final Re sult [facility] CLIA# [id number] [place] [address] documented in this encounter Visit Diagnoses Diagnosis Unspecified abnormal findings in urine documented in this encounter
--- OUTSIDE RECORDS SUMMARY | 2025-01-14 10:13 | XMS_ITS | Encounter Summary ---
Author Organization [facility] Address 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 Phone Number INTERFACE SYSTEM Refer to clinic/hospital [...] ORDERABLES Final Res ult Performing Organization Address [facility] Phone Number INTERFACE SYSTEM Refer to clinic/hospital [...] ORDERABLES Final Resu lt Performing Organization Address [facility] Phone Number INTERFACE SYSTEM Refer to clinic/hospital department * (ABNORMAL) POC GLUCOSE (01/08/2006 9:26 PM CDT) GLUCOSE POC 133(H) 65 - 109 mg/dL INTERFACE SYSTEM 01/08/2006 9:26 PM CDT José Fine MD POINT OF CARE TESTING Final Result Performing Organization Address [facility] Phone Number INTERFACE SYSTEM Refer to clinic/hospital department * (ABNORMAL) POC GLUCOSE (01/08/2006 5:25 PM CDT) GLUCOSE POC 125(H) 65 - 109 mg/dL INTERFACE SYSTEM 01/08/2006 5:25 PM CDT José Fine MD POINT OF CARE TESTING Final Result Performing Organization Address [facility] Phone Number INTERFACE SYSTEM Refer to clinic/hospital department * (ABNORMAL) POC GLUCOSE (01/08/2006 11:50 AM CDT) GLUCOSE POC 122(H) 65 - 109 mg/dL INTERFACE SYSTEM 01/08/2006 11:5 0 AM CDT us José Fine MD POINT OF CARE TESTING Final Result Performing Organization Address [facility] Phone Number INTERFACE SYSTEM Refer to clinic/hospital department * (ABNORMAL) POC GLUCOSE (01/08/2006 5:35 AM CDT) GLUCOSE POC 128(H) 65 - 109 mg/dL INTERFACE SYSTEM 01/08/2006 5:35 AM CDT us José Fine MD POINT OF CARE TESTING Final Result Performing Organization Address [facility] Phone Number INTERFACE SYSTEM Refer to clinic/hospital department * (ABNORMAL) POC GLUCOSE (01/07/2006 8:48 PM CDT) GLUCOSE POC 124(H) 65 - 109 mg/dL INTERFACE SYSTEM 01/07/2006 8:48 PM CDT us José Fine MD POINT OF CARE TESTING Final Result Performing Organization Address [facility] Phone Number INTERFACE SYSTEM Refer to clinic/hospital department * (ABNORMAL) POC GLUCOSE (01/07/2006 4:51 PM CDT) GLUCOSE POC 121(H) 65 - 109 mg/dL INTERFACE SYSTEM 01/07/2006 4:51 PM CDT us José Fine MD POINT OF CARE TESTING Final Result Performing Organization Address [facility] Phone Number INTERFACE SYSTEM Refer to clinic/hospital department * (ABNORMAL) POC GLUCOSE (01/07/2006 11:16 AM CDT) GLUCOSE POC 119(H) 65 - 109 mg/dL INTERFACE SYSTEM 01/07/2006 11:1 6 AM CDT us José Fine MD POINT OF CARE TESTING Final Result Performing Organization Address [facility] Phone Number INTERFACE SYSTEM Refer to clinic/hospital department * (ABNORMAL) POC GLUCOSE (01/07/2006 6:24 AM CDT) GLUCOSE POC 114(H) 65 - 109 mg/dL INTERFACE SYSTEM 01/07/2006 6:24 AM CDT us José Fine MD POINT OF CARE TESTING Final Result Performing Organization Address [facility] Phone Number INTERFACE SYSTEM Refer to [...] ORDERABLES Final Resu lt Performing Organization Address [facility] Phone Number INTERFACE SYSTEM Refer to [...] ORDERABLES Final Resu lt Performing Organization Address [facility] Phone Number INTERFACE SYSTEM Refer to clinic/hospital department * PHOSPHORUS (01/07/2006 5:30 AM CDT) PHOSPHORUS 3.1 2.5 - 4.5 mg/dL INTERFACE SYSTEM 01/07/2006 5:30 AM CDT Terry Cole MD CHEMISTRY ORDERABLES Final Resul t Performing Organization Address [facility] Phone Number INTERFACE SYSTEM Refer to clinic/hospital department * MAGNESIUM LEVEL (01/07/2006 5:30 AM CDT) MAGNESIUM 2.3 1.5 - 2.5 mg/dL INTERFACE SYSTEM 01/07/2006 5:30 AM CDT Terry Cole MD CHEMISTRY ORDERABLES Final Resul t Performing Organization Address [facility] Phone Number INTERFACE SYSTEM Refer to clinic/hospital [...] ORDERABLES Final Resul t Performing Organization Address [facility] Phone Number INTERFACE SYSTEM Refer to clinic/hospital department * (ABNORMAL) POC GLUCOSE (01/07/2006 12:49 AM CDT) GLUCOSE POC 114(H) 65 - 109 mg/dL INTERFACE SYSTEM 01/07/2006 12:4 9 AM CDT us José Fine MD POINT OF CARE TESTING Final Result Performing Organization Address City/[facility] Co de Phone Number INTERFACE SYSTEM Refer to clinic/hospital department * (ABNORMAL) POC GLUCOSE (01/06/2006 5:40 PM CDT) COMMENT, GLU POC Notified RN INTERFACE SYSTEM GLUCOSE POC 128(H) 65 - 109 mg/dL INTERFACE SYSTEM 01/06/2006 5:40 PM CDT us José Fine MD POINT OF CARE TESTING Final Result Performing Organization Address [facility] Phone Number INTERFACE SYSTEM Refer to clinic/hospital department * (ABNORMAL) POC GLUCOSE (01/06/2006 11:43 AM CDT) COMMENT, GLU POC Notified RN INTERFACE SYSTEM GLUCOSE POC 120(H) 65 - 109 mg/dL INTERFACE SYSTEM 01/06/2006 11:4 3 AM CDT us José Fine MD POINT OF CARE TESTING Final Result Performing Organization Address [facility] Phone Number INTERFACE SYSTEM Refer to clinic/hospital department * (ABNORMAL) POC GLUCOSE (01/06/2006 5:48 AM CDT) GLUCOSE POC 120(H) 65 - 109 mg/dL INTERFACE SYSTEM 01/06/2006 5:48 AM CDT us José Fine MD POINT OF CARE TESTING Final Result Performing Organization Address City/[facility] Co de Phone Number INTERFACE SYSTEM [...] ORDERABLES Final Resu lt Performing Organization Address City/[facility]/ZIP Co de Phone Number INTERFACE [...] ORDERABLES Final Resul t Performing Organization Address [facility] Phone Number INTERFACE SYSTEM Refer to [...] ORDERABLES Final Resul t Performing Organization Address City/[facility]/ZIP Co de Phone Number INTERFACE SYSTEM Refer to clinic/hospital department * (ABNORMAL) POC GLUCOSE (01/06/2006 1:00 AM CDT) GLUCOSE POC 142(H) 65 - 109 mg/dL INTERFACE SYSTEM 01/06/2006 1:00 AM CDT José Fine MD POINT OF CARE TESTING Final Result Performing Organization Address [facility] Phone Number INTERFACE SYSTEM Refer to clinic/hospital department * (ABNORMAL) POC GLUCOSE (01/05/2006 5:49 PM CDT) GLUCOSE POC 137(H) 65 - 109 mg/dL INTERFACE SYSTEM 01/05/2006 5:49 PM CDT José Fine MD POINT OF CARE TESTING Final Result Performing Organization Address [facility] Phone Number INTERFACE SYSTEM Refer to clinic/hospital department * (ABNORMAL) POC GLUCOSE (01/05/2006 11:57 AM CDT) GLUCOSE POC 133(H) 65 - 109 mg/dL INTERFACE SYSTEM 01/05/2006 11:5 7 AM CDT José Fine MD POINT OF CARE TESTING Final Result Performing Organization Address [facility] Phone Number INTERFACE SYSTEM Refer to clinic/hospital department * (ABNORMAL) POC GLUCOSE (01/05/2006 5:59 AM CDT) GLUCOSE POC 142(H) 65 - 109 mg/dL INTERFACE SYSTEM 01/05/2006 5:59 AM CDT José Fine MD POINT OF CARE TESTING Final Result Performing Organization Address [facility] Phone Number INTERFACE SYSTEM Refer to clinic/hospital [...] K/uL INTERFACE SYSTEM 01/05/2006 4:00 AM CDT [facility] [employer] HEMATOLOGY ORDERABLES Final Result Performing Organization Address [facility] Phone Number INTERFACE SYSTEM Refer to clinic/hospital [...] fL INTERFACE SYSTEM 01/05/2006 4:00 AM CDT [employer] HEMATOLOGY ORDERABLES Final Result Performing Organization Address [facility] Phone Number INTERFACE SYSTEM Refer to clinic/hospital [...] patients with mechanical heart valves or post VA. Pediatric (12 years and under): 1.5 - [...] for unfractionated heparin 01/05/2006 4:00 AM CDT [employer] HEMATOLOGY ORDERABLES Final Result Performing Organization Address [facility] Phone Number INTERFACE SYSTEM Refer to clinic/hospital department * PHOSPHORUS (01/05/2006 4:00 AM CDT) PHOSPHORUS 2.9 2.5 - 4.5 mg/dL INTERFACE SYSTEM 01/05/2006 4:00 AM CDT Luis Eduardo F[employer] CHEMISTRY ORDERABLES Final R esult Performing Organization Address [facility] Phone Number INTERFACE SYSTEM Refer to clinic/hospital department * MAGNESIUM LEVEL (01/05/2006 4:00 AM CDT) MAGNESIUM 2.2 1.5 - 2.5 mg/dL INTERFACE SYSTEM 01/05/2006 4:00 AM CDT [employer] CHEMISTRY ORDERABLES Final R esult Performing Organization Address [facility] Phone Number INTERFACE SYSTEM Refer to clinic/hospital [...] ORDERABLES Final R esult Performing Organization Address [facility] Phone Number INTERFACE SYSTEM Refer to clinic/hospital department * (ABNORMAL) POC GLUCOSE (01/04/2006 11:41 PM CDT) GLUCOSE POC 140(H) 65 - 109 mg/dL INTERFACE SYSTEM 01/04/2006 11:4 1 PM CDT us José Fine MD POINT OF CARE TESTING Final Result Performing Organization Address [facility] Phone Number INTERFACE SYSTEM Refer to clinic/hospital department * (ABNORMAL) POC GLUCOSE (01/04/2006 5:43 PM CDT) GLUCOSE POC 156(H) 65 - 109 mg/dL INTERFACE SYSTEM 01/04/2006 5:43 PM CDT us José Fine MD POINT OF CARE TESTING Final Result Performing Organization Address [facility] Phone Number INTERFACE SYSTEM Refer to clinic/hospital department * (ABNORMAL) POC GLUCOSE (01/04/2006 11:37 AM CDT) GLUCOSE POC 175(H) 65 - 109 mg/dL INTERFACE SYSTEM 01/04/2006 11:3 7 AM CDT us José Fine MD POINT OF CARE TESTING Final Result Performing Organization Address [facility] Phone Number INTERFACE SYSTEM Refer to clinic/hospital department * (ABNORMAL) POC GLUCOSE (01/04/2006 6:11 AM CDT) GLUCOSE POC 183(H) 65 - 109 mg/dL INTERFACE SYSTEM 01/04/2006 6:11 AM CDT José Fine MD POINT OF CARE TESTING Final Result Performing Organization Address [facility] Phone Number INTERFACE SYSTEM Refer to clinic/hospital [...] ORDERABLES F inal Result Performing Organization Address [facility] Phone Number INTERFACE SYSTEM Refer to clinic/hospital [...] patients with mechanical heart valves or post VA. Pediatric (12 years and under): 1.5 - [...] ORDERABLES F inal Result Performing Organization Address [facility] Phone Number INTERFACE SYSTEM Refer to clinic/hospital department * PHOSPHORUS (01/04/2006 4:20 AM CDT) PHOSPHORUS 2.5 2.5 - 4.5 mg/dL INTERFACE SYSTEM 01/04/2006 4:20 AM CDT us Rayray Wilcox MD CHEMISTRY ORDERABLES Fi nal Result Performing Organization Address [facility] Phone Number INTERFACE SYSTEM Refer to clinic/hospital department * MAGNESIUM LEVEL (01/04/2006 4:20 AM CDT) MAGNESIUM 2.0 1.5 - 2.5 mg/dL INTERFACE SYSTEM 01/04/2006 4:20 AM CDT Rayray Wilcox MD CHEMISTRY ORDERABLES Fi nal Result Performing Organization Address [facility] Phone Number INTERFACE SYSTEM Refer to [...] ORDERABLES Final Re sult Performing Organization Address [facility]/ZIP Co de Phone Number INTERFACE SYSTEM Refer to clinic/hospital department * (ABNORMAL) POC GLUCOSE (01/04/2006 12:25 AM CDT) GLUCOSE POC 188(H) 65 - 109 mg/dL INTERFACE SYSTEM 01/04/2006 12:2 5 AM CDT José Fine MD POINT OF CARE TESTING Final Result Performing Organization Address [facility] Phone Number INTERFACE SYSTEM Refer to clinic/hospital department * (ABNORMAL) POC GLUCOSE (01/03/2006 5:25 PM CDT) GLUCOSE POC 177(H) 65 - 109 mg/dL INTERFACE SYSTEM 01/03/2006 5:25 PM CDT José Fine MD POINT OF CARE TESTING Final Result Performing Organization Address [facility] Phone Number INTERFACE SYSTEM Refer to clinic/hospital department * (ABNORMAL) POC GLUCOSE (01/03/2006 11:34 AM CDT) GLUCOSE POC 148(H) 65 - 109 mg/dL INTERFACE SYSTEM 01/03/2006 11:3 4 AM CDT José Fine MD POINT OF CARE TESTING Final Result Performing Organization Address [facility] Phone Number INTERFACE SYSTEM Refer to [...] ORDERABLES F inal Result Performing Organization Address [facility] Phone Number INTERFACE SYSTEM Refer to clinic/hospital [...] ORDERABLES F inal Result Performing Organization Address [facility] Phone Number INTERFACE SYSTEM Refer to clinic/hospital [...] ORDERABLES F inal Result Performing Organization Address [facility] Phone Number INTERFACE SYSTEM Refer to clinic/hospital [...] patients with mechanical heart valves or post VA. Pediatric (12 years and under): 1.5 - [...] ORDERABLES F inal Result Performing Organization Address [facility] Number INTERFACE SYSTEM Refer to clinic/hospital department * PHOSPHORUS (01/03/2006 10:46 AM CDT) PHOSPHORUS 3.3 2.5 - 4.5 mg/dL INTERFACE SYSTEM 01/03/2006 10:4 6 AM CDT Rayray Wilcox MD CHEMISTRY ORDERABLES Fi nal Result Performing Organization Address [facility] Phone Number INTERFACE SYSTEM Refer to clinic/hospital department * MAGNESIUM LEVEL (01/03/2006 10:46 AM CDT) MAGNESIUM 1.8 1.5 - 2.5 mg/dL INTERFACE SYSTEM 01/03/2006 10:4 6 AM CDT Rayray Wilcox MD CHEMISTRY ORDERABLES Fi nal Result Performing Organization Address [facility] Phone Number INTERFACE SYSTEM Refer to clinic/hospital [...] CHEMISTRY ORDERABLES nal Result Performing Organization Address [facility] Phone Number INTERFACE SYSTEM Refer to clinic/hospital [...] patients with mechanical heart valves or post VA. Pediatric (12 years and under): 1.5 - [...] drugs of abuse are available on the [facility] Intranet at: [email or web address] Select: Drugs of Abuse ? [facility] To inquire about any potential cross-reactivity [...] URINE ORDERABLES Final Result Performing Organization Address City/[facility]/ZIP Co de Phone Number INTERFACE [...]
--- OUTSIDE RECORDS SUMMARY | 2025-01-14 10:13 | XMS_ITS | Encounter Summary ---
Author Organization [employer] Address 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 Gender Identity Not on file Sexual [...] ORDERABLES Final Re sult Performing Organization Address [facility] Phone Number INTERFACE SYSTEM Refer to clinic/hospital department * C-REACTIVE PROTEIN (04/05/2006 5:15 AM CDT) Pathologist [facility] CRP 0.2 0.0 - 0.8 mg/dL INTERFACE SYSTEM 04/05/2006 5:15 AM CDT [facility] CHEMISTRY ORDERABLES Final Res ult Performing Organization Address [facility] Phone Number INTERFACE SYSTEM Refer to clinic/hospital department * (ABNORMAL) VANCOMYCIN LEVEL TROUGH (03/31/2006 11:15 AM CDT) Pathologist [facility] VANCOMYCIN, TROUGH 18.3(AA) 5.0 - 15.0 ug/mL INTERFACE SYSTEM Comment: Vancomycin Trough Toxic Level= >15.0 ug/mL Results called to Amy_ at 03/31/2006 12:05 PM and read back verified. 03/31/2006 11:1 5 AM CDT Sushil Arroyo MD CHEMISTRY ORDERABLES Final R esult Performing Organization Address [facility] Phone Number INTERFACE SYSTEM Refer to clinic/hospital department * (ABNORMAL) CBC WITH DIFFERENTIAL (03/29/2006 5:15 AM CDT) Pathologist [facility] NEUTROPHILS 64 45 - 70 % INTERFAC [...] ORDERABLES Final Res ult Performing Organization Address [facility] Phone Number INTERFACE SYSTEM Refer to clinic/hospital [...] ORDERABLES Final Res ult Performing Organization Address [facility] Number INTERFACE SYSTEM Refer to clinic/hospital department * C-REACTIVE PROTEIN (03/29/2006 5:15 AM CDT) CRP 0.3 0.0 - 0.8 mg/dL INTERFACE SYSTEM 03/29/2006 5:1 5 AM CDT us Keenan Mandujano MD CHEMISTRY ORDERABLES Final Resu lt Performing Organization Address [facility] Phone Number INTERFACE SYSTEM Refer to clinic/hospital [...] ORDERABLES Final Resu lt Performing Organization Address [facility] Phone Number INTERFACE SYSTEM Refer to clinic/hospital [...] ORDERABLES Final Re sult Performing Organization Address [facility] Phone Number INTERFACE SYSTEM Refer to clinic/hospital [...] INTERFACE SYSTEM 03/24/2006 12:1 0 PM CDT [employer] [facility] HEMATOLOGY ORDERABLES Final Re sult Performing Organization Address [facility] Phone Number INTERFACE SYSTEM Refer to clinic/hospital department * VANCOMYCIN LEVEL TROUGH (03/24/2006 12:10 PM CDT) VANCOMYCIN, TROUGH 11.3 5.0 - 15.0 ug/mL INTERFACE SYSTEM Comment: Vancomycin Trough Toxic Level= >15.0 ug/mL 03/24/2006 12:1 0 PM CDT [employer] Zaid CHEMISTRY ORDERABLES Final Res ult Performing Organization Address [facility] Phone Number INTERFACE SYSTEM Refer to clinic/hospital department * C-REACTIVE PROTEIN (03/24/2006 12:10 PM CDT) CRP 0.6 0.0 - 0.8 mg/dL INTERFACE SYSTEM 03/24/2006 12:1 0 PM CDT [employer] [facility] CHEMISTRY ORDERABLES Final Res ult Performing Organization Address [facility] Phone Number INTERFACE SYSTEM Refer to clinic/hospital [...] ORDERABLES Final Res ult Performing Organization Address [facility] Co de Phone Number INTERFACE SYSTEM [...] INTERFACE SYSTEM 03/23/2006 11:3 0 AM CDT [employer] HEMATOLOGY ORDERABLES Final Re sult Performing Organization Address [facility] de Phone Number INTERFACE SYSTEM Refer to clinic/hospital department * (ABNORMAL) CBC WITH DIFFERENTIAL (03/23/2006 11:30 AM CDT) Pathologist [facility] WBC 6.1 4.0 - 9.8 K/uL INTERFACE [...] INTERFACE SYSTEM 03/23/2006 11:3 0 AM CDT [employer] HEMATOLOGY ORDERABLES Final Re sult Performing Organization Address [facility] de Phone Number INTERFACE SYSTEM Refer to clinic/hospital department * VANCOMYCIN LEVEL TROUGH (03/23/2006 11:30 AM CDT) VANCOMYCIN, TROUGH 6.2 5.0 - 15.0 ug/mL INTERFACE SYSTEM Comment: Vancomycin Trough Toxic Level= >15.0 ug/mL 03/23/2006 11:3 0 AM CDT [employer] CHEMISTRY ORDERABLES Final Res ult Performing Organization Address [facility] Phone Number INTERFACE SYSTEM Refer to clinic/hospital department * (ABNORMAL) C-REACTIVE PROTEIN (03/23/2006 11:30 AM CDT) CRP 1.0(H) 0.0 - 0.8 mg/dL INTERFACE SYSTEM 03/23/2006 11:3 0 AM CDT us [facility] CHEMISTRY ORDERABLES Final Res ult Performing Organization Address [facility] Phone Number INTERFACE SYSTEM Refer [...] INTERFACE SYSTEM 03/23/2006 11:3 0 AM CDT [facility] CHEMISTRY ORDERABLES Final Res ult Performing Organization Address [facility] Phone Number INTERFACE SYSTEM Refer to clinic/hospital [...] ORDERABLES Final R esult Performing Organization Address [facility] Phone Number INTERFACE SYSTEM Refer to clinic/hospital [...] /HPF INTERFACE SYSTEM 03/22/2006 8:30 PM CDT [employer] [facility] URINE ORDERABLES Final Result Performing Organization Address [facility] Phone Number INTERFACE SYSTEM Refer to clinic/hospital [...] Sushil Arroyo MD CHEMISTRY ORDERABLES Final R community health Performing Organization Address [facility] de Phone Number INTERFACE [...] ORDERABLES Final R esult Performing Organization Address [facility] Co de Phone Number INTERFACE SYSTEM [...] HEMATOLOGY ORDERABLES Final Result Performing Organization Address [facility] Phone Number INTERFACE SYSTEM Refer to clinic/hospital [...] INTERFACE SYSTEM 03/20/2006 7:19 AM CDT Sushil rAroyo MD HEMATOLOGY ORDERABLES Final Result Performing Organization Address [facility] Phone Number INTERFACE SYSTEM Refer to clinic/hospital [...] ORDERABLES Final R esult Performing Organization Address [facility] Phone Number INTERFACE SYSTEM Refer to clinic/hospital [...] ORDERABLES Final Resul t Performing Organization Address [facility] Phone Number INTERFACE SYSTEM Refer to clinic/hospital department documented in this encounter Visit Diagnoses Diagnosis Other specified rehabilitation procedure(V57.89)- Primary Other specified rehabilitation procedure documented in this encounter
--- OUTSIDE RECORDS SUMMARY | 2025-01-14 10:13 | XMS_ITS | Encounter Summary ---
Author Organization [facility] Address [address] [place] [address] Care Team Providers Care Granite Polisher Machine Name Role Phone Unavailable Primary Care Provider Unavailabl e Encounter Details Date Type Department Care Team (Late st Contact Info) Description 01/10/2006 Outpatient Historical [facility] Trauma and General Surgery [address] [facility] [address] [address] [place] [address] [place] [address] Social History Tobacco Use Types Packs/Day Years Used Date Smoking Tobacco: Never Assessed Sex and Gender Information Value Date Recorded Sex Assigned at Not on file Legal Sex Male 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
--- OUTSIDE RECORDS SUMMARY | 2025-01-14 10:13 | XMS_ITS | Encounter Summary ---
Author Organization [facility] Address [address] [place] [address] Care Team Providers Care Hosiery Pairer Name Role Phone Unavailable Primary Care Provider Unavailabl e Encounter Details Date Type Department Care Team (Late st Contact Info) Description 01/11/2006 Outpatient Historical [facility] Trauma and General Surgery [address] 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
--- OUTSIDE RECORDS SUMMARY | 2025-01-14 10:13 | XMS_ITS | Clinical Summary ---
Author Organization [facility] Administrative Off[facility] Address [address] [place] [address] Care Team Providers Care Pipefitter Helper Name Role Phone Unavailable Primary Care Provider [...] daily. 06/14/20 Active naloxone (NARCAN) 4 mg/spray [place], Non-Aerosol Administer 4 mg in each nostril [...] (04/21/2023): Last Assessment & Plan: H/o L TOOL SHARPENER infarct 2019, continue asa/statin Urinary tract infection [...] that has since passed. Urine cx from [facility] on 05/04 also growing [...] to reach son and obtained collateral from [facility] - CT Head today. - Fall [...] oxycodone prn. Baclofen pump rx'd by the [facility]. Iron deficiency anemia, unspecified 10/26/2012 [...] Plan: Uses wheelchair at baseline. Resides at [facility]. Has baclofen pump/neurostimulator in [...] on file Legal Sex Male 3:46 AM DISCHARGE COORDINATOR Gender Identity Not on file Sexual [...] 11:38 AM CDT Height 190.5 cm (6' 3) 04/21/2023 11:38 AM CDT Body Mass Index 24.62 04/21/2023 11:38 AM CDT Plan of Treatment Health Maintenance Due Date Last Done Comments FIT-DNA Q 3 years 1994 FIT/FOBT Q 1 year 1994 Flex Sig/CT Colonography Q 5 years 1994 RSV VACCINE (60+ or ) (1 - 1-dose 75+ series) 2024 INFLUENZA VACCINE (#1) 2025 2, 04/16/2021, 04/17/2020, Additional history exists COLORECTAL SCREENING 12/31/2029 01/01/2020 Colorectal Cancer Screening 12/31/2029 DTAP/TDAP/TD VACCINES (2 - T d or Tdap) 10/17/2031 10/16/2021, 07/01/2016 PNEUMOCOCCAL VACCINE 50+ YEARS Completed 1 07/12/2016, 10/24/2015, 09/16/2014, Additional history exists ZOSTER VACCINE Completed 12/11/2020, 10/10/2020 Insurance [place]ICAID [place] MEDICARE MANAGED CARE
--- OUTSIDE RECORDS SUMMARY | 2025-01-14 10:13 | XMS_ITS | Encounter Summary ---
Author Organization [facility] Address [address] [place] [address] Care Team Providers Care Textile Screen Maker Name Role Phone Unavailable Primary Care Provider Unavailabl e Encounter Details Date Type Department Care Team (Late st Contact Info) Description 01/12/2006 Outpatient Historical [facility] Trauma and General Surgery [address] [facility] [address] [address] [place] [address] [place] [address] Social History Tobacco Use Types Packs/Day Years Used Date Smoking Tobacco: Never Assessed Sex and Gender Information Value Date Recorded Sex Assigned at Not on file Legal 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
--- OUTSIDE RECORDS SUMMARY | 2025-01-14 10:13 | XMS_ITS | Encounter Summary ---
Author Organization [facility] Address 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
--- OUTSIDE RECORDS SUMMARY | 2025-01-14 10:13 | XMS_ITS | Encounter Summary ---
Author Organization [facility] Address [address] [place] [address] Care Team Providers Care Tea Leaf Reader Name Role Phone Unavailable Primary Care Provider Unavailabl e Encounter Details Date Type Department Care Team (Late st Contact Info) Description 01/08/2006 Outpatient Historical [facility] Trauma and General Surgery [address] [facility] [address] [facility] [place] [address] Jayden James MD [address] [facility] [address] [facility] [place] [address] Social History Tobacco Use Types Packs/Day Years Used Date Smoking Tobacco: Never Assessed Sex and Gender Information Value Date Recorded Sex Assigned at Not on file Legal Sex Male 3:46 AM 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
--- OUTSIDE RECORDS SUMMARY | 2025-01-14 10:13 | XMS_ITS | Clinical Summary ---
Author Organization [facility] [employer] Address [address] [place] [address] Care Team Providers Care Labor And Employment Paralegal Name Role Phone Rod Strauss MD Primary Care Provider [phone] Source Comments [facility] [employer],non-owned Affiliates and Associated Physician Practices is amultiple site organization consisting of ambulatory clinics and hospital sitesin [place], [place], [place] and [place]. This disclosure is being madepursuant to the Care Everywhere program and may not contain all information available regarding this patient. Last updated 18.[facility] [employer] Allergies Active Allergy Reactions Criticality Noted Date [...] MV. LVEF >70%. Follows with [facility] Cardiology. -continue home metoprolol 25mg BID Presence [...] (05/30/2024): Last Assessment & Plan: H/o L CNS infarct 2019, continue asa/statin Hydronephrosis 05/10/2019 Pyelonephritis [...] has since passed. Urine cx from [facility] on 05/04 also growing pseudomonas, [...] reach son and obtained collateral from [facility] - CT Head today. - [...] medical care, and heating? Patient declined 05/31/2024 [employer] of Occupat ional [facility] - Occupational Stress Questionnaire Answer Date Recorded [...] any time in the past 12 m [facility], were you homeless or living in a usp (including now)? Patient declined 05/31/2024 Sex and Gender Information Value Date Recorded Sex Assigned at Not on file Legal Sex Male 5:23 PM SENIOR CONSULTANT Gender Identity Not on file Sexual Orientation Not on file Last Filed Vital Signs Vital Sign Reading Time Taken Comments Blood Pressure 135/77 06/15/2024 11:48 AM SENIOR CONSULTANT Pulse 74 06/15/2024 11:48 AM SENIOR CONSULTANT Temperature 36.4 C (97.6 F) 06/15/2024 8:35 AM SENIOR CONSULTANT Respiratory Rate 16 06/15/2024 11:48 AM SENIOR CONSULTANT Oxygen Saturation 97% 06/15/2024 11:48 AM SENIOR CONSULTANT Inhaled Oxygen Concentration 40% 06/04/2024 9 :43 AM SENIOR CONSULTANT Weight 88.5 kg (195 lb) 06/15/2024 8:35 AM SENIOR CONSULTANT Height 190.5 cm (6' 3) 06/15/2024 8:35 AM SENIOR CONSULTANT Body Mass Index 24.37 06/15/2024 8:35 AM SENIOR CONSULTANT Plan of Treatment Health Maintenance Due Date Last Done Comments COLOGUARD (AGES 45-75) - COLON CA SCREENING [address] CT COLONOGRAPHY - COLON CA SCREENING [...] 1-dose 75+ series) 2024 DEPRESSION SCREENING 07/05/2024 INFLUENZA VACCINE (#1) 2025 4, 04/17/2020, 04/04/2020, Additional history exists COLON MONITORING 12/31/2029 01/01/2020 COLONOSCOPY - COLON CA SCREENING 12/31/2029 01/01/2020 Colorectal Cancer Screening 12/31/2029 HEPATITIS C SCREENING Completed 06/06/2024 HEPATITIS B [...] this topic Medical Devices Implanted Type Area Office Support Assistant Device Identifier Shelf Expiration Date Model / Serial / Lot Synchromed Iii Pump Implanted:Qty: 1 on 06/04/2024 by Deshawn Schultz MD at [facility] Left: Abdomen [employer] 08/18/2025 8667-40 / [id number] / Ascenda Implanted:Qty: 1 on 06/04/2024 by Deshawn Schultz MD at [facility] Left: Abdomen [employer] 12/14/2024 [id number] / / [id number] Procedures Procedure Name Priority Date/Time Associated Diagnosis Comments HEPATITIS C AB SCREEN RFLX NAAT QUANT STAT 06/06/2024 11:49 AM SENIOR CONSULTANT from Last 3 Months or Most Recently Relevant to Health Maintenance Results * HEPATITIS C AB SCREEN RFLX NAAT QUANT (06/06/2024 11:49 AM SENIOR CONSULTANT) Hepatitis C Antibody Non-react lottie Non-reac tive 06/06/2024 1:01 PM SENIOR CONSULTANT [facility] Comment:Hepatitis C Antibody screen indicates [...] Lab Venipuncture / Unknown 06/06/2024 11:49 AM SENIOR CONSULTANT 06/06/2024 12:05 PM SENIOR CONSULTANT Salena Griffin PULVERIZER TENDER-ENVIRONMENTAL LAWYER LAB - CHEMISTRY ORDERABLES F inal Result [facility] [address] [place] [address], [facility] [phone] from Last 3 Months or Most Recently Relevant to Health Maintenance Additional Health Concerns Infection Onset Date Last Indicated ESBL GNR 06/01/2024 06/01/[address] [place] [address] [facility] [place] [address] MEDICARE Advance Directives * Full Code (Latest Code Status on File) Date Activated Date Inactivated Comments 05/31/2024 11:27 PM 06/09/2024 8:37 PM Care Teams Labor And Employment Paralegal Relationship Specialty Start Date End Date Rod Strauss MD [address] [place] [address] PCP - General Internal Medicine 06/15/24
--- OUTSIDE RECORDS SUMMARY | 2025-01-14 10:13 | XMS_ITS | Encounter Summary ---
Author Organization [facility] Address [address] [place] [address] Care Team Providers Care Veneer Drier Name Role Phone Unavailable Primary Care Provider Unavailabl e Encounter Details Date Type Department Care Team (Late st Contact Info) Description 01/13/2006 Outpatient Historical [facility] Supp Svcs Blood Flow [address] [place] [address] Dillan Henry MD NO ADDRESS ON FILE Social History Tobacco Use Types Packs/Day Years Used Date Smoking Tobacco: Never Assessed Sex and Gender Information Value Date Recorded Sex Assigned at Not on file Legal Sex Male 3:46 AM WELFARE 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
--- OUTSIDE RECORDS SUMMARY | 2025-01-14 10:13 | XMS_ITS | Encounter Summary ---
Author Organization [facility] Address [address] [place] [address] Care Team Providers Care Authorization Nurse Name Role Phone Unavailable Primary Care Provider Unavailabl e Encounter Details Date Type Department Care Team (Late st Contact Info) Description 03/16/2006 Outpatient Historical [facility] Adult Critical Care [address] [address] Venkatesh Yang MD Social History Tobacco Use Types Packs/Day Years Used Date Smoking Tobacco: Never Assessed Sex and Gender Information Value Date Recorded Sex Assigned at Not on file Legal Sex Male 3:46 AM PRESCRIPTION EYEGLASS MAKER Gender Identity Not on file Sexual Orientation Not on file documented as of this encounter Plan of Treatment Not on file documented as of this encounter Visit Diagnoses Not on filedocumented in this encounter
--- OUTSIDE RECORDS SUMMARY | 2025-01-14 10:13 | XMS_ITS | Encounter Summary ---
Author Organization [facility] Address [address] [place] [address] Care Team Providers Care Mechanical Lead Name Role Phone Unavailable Primary Care Provider Unavailabl e Encounter Details Date Type Department Care Team (Late st Contact Info) Description 01/09/2006 Outpatient Historical [facility] Trauma and General Surgery [address] [facility] [address] [address] [place] [address] [place] [address] Social History Tobacco Use Types Packs/Day Years Used Date Smoking Tobacco: Never Assessed Sex and Gender Information Value Date Recorded Sex Assigned at Not on file Legal Sex Male 3:46 AM GAS ENGINE OPERATOR Gender Identity Not on file Sexual Orientation Not on file documented as of this encounter Plan of Treatment Not on file documented as of this encounter Visit Diagnoses Not on filedocumented in this encounter
--- OUTSIDE RECORDS SUMMARY | 2025-01-14 10:13 | XMS_ITS | Encounter Summary ---
Author Organization [employer] Address [address] [place] [address] Care Team Providers Care Wire Coating Machine Operator Name Role Phone Unavailable Primary Care Provider Unavailabl e Encounter Details Date Type Department Care Team (Late st Contact Info) Description 01/13/2006 Outpatient Historical [facility] Support Serv. (Adt Cardiology[facility]) [address] [place] [address] Phyllis Bajwa MD [address] [address] [address] [place] [address] Social History Tobacco Use Types Packs/Day Years Used Date Smoking Tobacco: Never Assessed Sex and Gender Information Value Date Recorded Sex Assigned at Not on file Legal Sex Male 3:46 AM HORSE STUD WORKER Gender Identity Not on file Sexual Orientation Not on file documented as of this encounter Plan of Treatment Not on file documented as of this encounter Visit Diagnoses Not on filedocumented in this encounter
--- OUTSIDE RECORDS SUMMARY | 2025-01-14 10:13 | XMS_ITS | Encounter Summary ---
Author Organization [facility] Address [address] [place] [address] Care Team Providers Care Ventilating Equipment Installer Name Role Phone Unavailable Primary Care Provider Unavailabl e Encounter Details Date Type Department Care Team (Late st Contact Info) Description 03/15/2006 Outpatient Historical [facility] Adult Hospitalists [address] [address] Yenny Hauser MD NO ADDRESS ON FILE Social History Tobacco Use Types Packs/Day Years Used Date Smoking Tobacco: Never Assessed Sex and Gender Information Value Date Recorded Sex Assigned at Not on file Legal Sex Male 3:46 AM NITROCELLULOSE OPERATOR Gender Identity Not on file Sexual Orientation Not on file documented as of this encounter Plan of Treatment Not on file documented as of this encounter Visit Diagnoses Not on filedocumented in this encounter
--- OUTSIDE RECORDS SUMMARY | 2025-01-14 10:13 | XMS_ITS | Encounter Summary ---
Author Organization [facility] [employer] Address 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 Phone Number INTERFACE SYSTEM Refer [...] ORDERABLES Final Re sult Performing Organization Address [facility] Phone Number INTERFACE SYSTEM Refer [...] ORDERABLES Final Re sult Performing Organization Address [facility] Phone Number INTERFACE SYSTEM Refer to clinic/hospital department * MAGNESIUM LEVEL (03/14/2006 4:37 AM CDT) MAGNESIUM 2.0 1.5 - 2.5 mg/dL INTERFACE SYSTEM 03/14/2006 4:37 AM CDT Rita Esqueda MD CHEMISTRY ORDERABLES Final Res ult Performing Organization Address [facility] Phone Number INTERFACE SYSTEM Refer to [...] mmol/L INTERFACE SYSTEM 03/14/2006 4:37 AM CDT [facility] ORDER[facility]LES Final Res ult Performing Organization Address [facility] Phone Number INTERFACE SYSTEM Refer to clinic/hospital department * (ABNORMAL) C-REACTIVE PROTEIN (03/14/2006 4:37 AM CDT) CRP 4.1(H) 0.0 - 0.8 mg/dL INTERFACE SYSTEM 03/14/2006 4:37 AM CDT [facility] CHEMISTRY ORDERABLES Final Res ult Performing Organization Address [facility] Phone Number INTERFACE SYSTEM Refer to clinic/hospital department * VANCOMYCIN LEVEL TROUGH (03/13/2006 1:02 PM CDT) VANCOMYCIN, TROUGH 8.7 5.0 - 15.0 ug/mL INTERFACE SYSTEM Comment: Vancomycin Trough Toxic Level= >15.0 ug/mL 03/13/2006 1:02 PM CDT [facility]LES Final Res ult Performing Organization Address [facility] Phone Number INTERFACE SYSTEM Refer to [...] ORDERABLES Final R esult Performing Organization Address [facility] Phone Number INTERFACE SYSTEM Refer to clinic/hospital department * C-REACTIVE PROTEIN, CSF (03/12/2006 3:10 PM CDT) CRP, CSF 0.15 mg/dL INTERFACE SYSTEM Comment: Note: New methodology using CSF CRP (highly sensitive) assay is effective 12/11/03. No reference range has been established for CSF CRP. 03/12/2006 3:10 PM CDT Alexa Dillon MD BODY FLUIDS AND STOOLS Final Result Performing Organization Address [facility] Phone Number INTERFACE SYSTEM Refer to [...] AND STOOLS Final Result Performing Organization Address [facility] Phone Number INTERFACE SYSTEM Refer to clinic/hospital department * (ABNORMAL) TOTAL PROTEIN, CSF (03/12/2006 3:10 PM CDT) PROTEIN, CSF 365(H) 15 - 45 mg/dL INTERFACE SYSTEM Comment: New CSF Protein Quantitative Methodology - Note New Reference Range. bloody sample 03/12/2006 3:10 PM CDT Aman Gottlieb DO BODY FLUIDS AND STOOLS Final Result Performing Organization Address [facility] Phone Number INTERFACE SYSTEM Refer to [...] PM and read back verified. RBC, CSF 245142(H) <=0 /uL INTERFACE SYSTEM 03/12/2006 3:10 PM CDT us Aman Gottlieb DO BODY FLUIDS AND STOOLS Final Result Performing Organization Address [facility] de Phone Number INTERFACE SYSTEM Refer to [...] HEMATOLOGY ORDERABLES Final Result Performing Organization Address [facility] de Phone Number INTERFACE SYSTEM Refer to [...] HEMATOLOGY ORDERABLES Final Result Performing Organization Address [facility] Phone Number INTERFACE SYSTEM Refer [...] ORDERABLES Final R esult Performing Organization Address [facility] de Phone Number INTERFACE SYSTEM Refer to [...] ORDERABLES Final Result Performing Organization Address [facility] de Phone Number INTERFACE SYSTEM Refer to [...] ORDERABLES Final Result Performing Organization Address [facility] Co de Phone Number INTERFACE SYSTEM Refer to clinic/hospital department * (ABNORMAL) C-REACTIVE PROTEIN (03/11/2006 4:40 AM CDT) CRP 6.5(H) 0.0 - 0.8 mg/dL INTERFACE SYSTEM 03/11/2006 4:40 AM CDT Sushil Arroyo MD CHEMISTRY ORDERABLES Final R [facility] Performing Organization Address [facility] Phone Number INTERFACE SYSTEM Refer [...] Sushil Arroyo MD CHEMISTRY ORDERABLES [facility] Per[facility] Organization Address [facility] Phone Number INTERFACE SYSTEM Refer [...] HEMATOLOGY ORDERABLES Final Result Performing Organization Address [facility] Phone Number INTERFACE SYSTEM Refer [...] ORDERABLES Final Resul t Performing Organization Address [facility] de Phone Number INTERFACE SYSTEM Refer to [...] ORDERABLES Final Result Performing Organization Address [facility] de Phone Number INTERFACE SYSTEM Refer to [...] HEMATOLOGY ORDERABLES Final Result Performing Organization Address [facility] de Phone Number INTERFACE SYSTEM Refer to [...] Final Res ult Performing Organization Address [facility] de Phone Number INTERFACE SYSTEM Refer to [...] ORDERABLES Final Res ult Performing Organization Address [facility] Phone Number INTERFACE SYSTEM Refer [...] ORDERABLES Final Res ult Performing Organization Address [facility] Phone Number INTERFACE SYSTEM Refer to clinic/hospital department * (ABNORMAL) C-REACTIVE PROTEIN (03/08/2006 6:34 PM CDT) CRP 5.2(H) 0.0 - 0.8 mg/dL INTERFACE SYSTEM 03/08/2006 6:34 PM CDT us Keenan Mandujano MD CHEMISTRY ORDERABLES Final Resu lt Performing Organization Address [facility] Co ri Phone Number INTERFACE SYSTEM Refer to clinic/hospital [...] URINE ORDERABLES Final Result Performing Organization Address [facility] Phone Number INTERFACE SYSTEM Refer [...] HEMATOLOGY ORDERABLES Final Result Performing Organization Address [facility] Phone Number INTERFACE SYSTEM Refer [...] ORDERABLES Final Resul t Performing Organization Address [facility] Phone Number INTERFACE SYSTEM Refer [...] HEMATOLOGY ORDERABLES Final Result Performing Organization Address [facility] Phone Number INTERFACE SYSTEM Refer [...] ORDERABLES Final Result Performing Organization Address [facility] de Phone Number INTERFACE SYSTEM Refer to [...] Final R esult Performing Organization Address [facility] de Phone Number INTERFACE SYSTEM Refer to [...] HEMATOLOGY ORDERABLES Final Result Performing Organization Address [facility] Phone Number INTERFACE SYSTEM Refer [...] URINE ORDERABLES Final Result Performing Organization Address [facility] Phone Number INTERFACE SYSTEM Refer [...] HEMATOLOGY ORDERABLES Final Result Performing Organization Address [facility] Phone Number INTERFACE SYSTEM Refer [...] HEMATOLOGY ORDERABLES Final Result Performing Organization Address [facility] Phone Number INTERFACE SYSTEM Refer [...] ORDERABLES Final R esult Performing Organization Address [facility] de Phone Number INTERFACE SYSTEM Refer to [...] HEMATOLOGY ORDERABLES Final Result Performing Organization Address [facility] Phone Number INTERFACE SYSTEM Refer [...] ORDERABLES Final Result Performing Organization Address [facility] Co de Phone Number INTERFACE [...] INTERFACE SYSTEM 02/26/2006 12:4 4 PM CDT [facility] HEMATOLOGY ORDERABLES Final Re sult Performing Organization Address [facility] de Phone Number INTERFACE SYSTEM Refer to clinic/hospital department * C-REACTIVE PROTEIN (02/26/2006 12:44 PM CDT) CRP 0.2 0.0 - 0.8 mg/dL INTERFACE SYSTEM 02/26/2006 12:4 4 PM CD[facility] CHEMISTRY ORDERABLES Final Res ult Performing Organization Address [facility] de Phone Number INTERFACE SYSTEM Refer to [...] ORDERABLES Final Res ult Performing Organization Address [facility] Phone Number INTERFACE SYSTEM Refer [...] ORDERABLES Final Resul t Performing Organization Address [facility] Phone Number INTERFACE SYSTEM Refer [...] K/uL INTERFACE SYSTEM 02/25/2006 4:36 AM CDT [facility] HEMATOLOGY ORDERABLES Final Re sult Performing Organization Address [facility] de Phone Number INTERFACE SYSTEM Refer to [...] fL INTERFACE SYSTEM 02/25/2006 4:36 AM CDT [facility] HEMATOLOGY ORDERABLES Final Re sult Performing Organization Address [facility] Phone Number INTERFACE SYSTEM Refer [...] mmol/L INTERFACE SYSTEM 02/25/2006 4:36 AM CDT [facility] Zaid CHEMISTRY ORDERABLES Final Res ult Performing Organization Address [facility] Phone Number INTERFACE SYSTEM Refer to clinic/hospital department * C-REACTIVE PROTEIN (02/25/2006 4:36 AM CDT) CRP 0.2 0.0 - 0.8 mg/dL INTERFACE SYSTEM 02/25/2006 4:36 AM [facility] CHEMISTRY ORDERABLES Final Res ult Performing Organization Address [facility] Phone Number INTERFACE SYSTEM Refer [...] URINE ORDERABLES Final Result Performing Organization Address [facility] Phone Number INTERFACE SYSTEM Refer [...] HEMATOLOGY ORDERABLES Final Result Performing Organization Address [facility] Phone Number INTERFACE SYSTEM Refer to [...] HEMATOLOGY ORDERABLES Final Result Performing Organization Address [facility] Phone Number INTERFACE SYSTEM Refer [...] ORDERABLES Final Resul t Performing Organization Address [facility] Phone Number INTERFACE SYSTEM Refer [...] ORDERABLES Final Result Performing Organization Address [facility] Phone Number INTERFACE SYSTEM Refer [...] HEMATOLOGY ORDERABLES Final Result Performing Organization Address [facility] de Phone Number INTERFACE SYSTEM Refer to [...] ORDERABLES Final Resul t Performing Organization Address [facility] de Phone Number INTERFACE SYSTEM Refer to [...] ORDERABLES Final Res ult Performing Organization Address [facility] Phone Number INTERFACE SYSTEM Refer to [...] ORDERABLES Final Res ult Performing Organization Address [facility] Phone Number INTERFACE SYSTEM Refer [...] HEMATOLOGY ORDERABLES Final Result Performing Organization Address [facility] de Phone Number INTERFACE SYSTEM Refer to [...] ORDERABLES Final Res ult Performing Organization Address [facility] Co de Phone Number INTERFACE [...] Final Res ult Performing Organization Address [facility] Co de Phone Number INTERFACE [...] ORDERABLES Final Result Performing Organization Address [facility]/ZIP Co de Phone Number INTERFACE SYSTEM Refer [...] ORDERABLES Final Resul t Performing Organization Address [facility] Phone Number INTERFACE SYSTEM Refer [...] HEMATOLOGY ORDERABLES Final Result Performing Organization Address [facility] Phone Number INTERFACE SYSTEM Refer [...] HEMATOLOGY ORDERABLES Final Result Performing Organization Address [facility] de Phone Number INTERFACE SYSTEM Refer to [...] Final R esult Performing Organization Address [facility]/ZIP Co de Phone Number INTERFACE SYSTEM Refer [...] HEMATOLOGY ORDERABLES Final Result Performing Organization Address City/State/[facility] Co de Phone Number INTERFACE [...] Final Resu lt Performing Organization Address [facility] de Phone Number INTERFACE SYSTEM Refer to [...] ORDERABLES Final Res ult Performing Organization Address [facility] de Phone Number INTERFACE SYSTEM Refer to [...] ORDERABLES Final Res ult Performing Organization Address [facility] de Phone Number INTERFACE SYSTEM Refer to [...] ORDERABLES Final Res ult Performing Organization Address [facility] Phone Number INTERFACE SYSTEM Refer [...] ORDERABLES Final Res t Performing Organization Address [facility] Phone Number INTERFACE SYSTEM Refer [...] been established. 01/28/2006 4:52 AM CDT Result [facility] Keenan Mandujano MD HEMATOLOGY ORDERABLES Final [facility] Performing Organization Address [facility] Phone Number INTERFACE SYSTEM Refer [...] ORDERABLES Final Res ult Performing Organization Address [facility] Phone Number INTERFACE SYSTEM Refer [...] ORDERABLES Final Res ult Performing Organization Address [facility] Phone Number INTERFACE SYSTEM Refer [...] ORDERABLES Final Res ult Performing Organization Address [facility] Phone Number INTERFACE SYSTEM Refer to [...] been established. 01/23/2006 4:57 AM CDT Result [facility] Keenan Mandujano MD HEMATOLOGY ORDERABLES Final Res ult Performing Organization Address [facility] Phone Number INTERFACE SYSTEM Refer [...] ORDERABLES Final Res ult Performing Organization Address [facility] Phone Number INTERFACE SYSTEM Refer [...] ORDERABLES Final Resu lt Performing Organization Address [facility] Phone Number INTERFACE SYSTEM Refer [...] ORDERABLES Final Res ult Performing Organization Address [facility] Phone Number INTERFACE SYSTEM Refer [...] ORDERABLES Final Resu lt Performing Organization Address [facility] Phone Number INTERFACE SYSTEM Refer [...] Final Resu lt Performing Organization Address [facility] Co de Phone Number INTERFACE [...] ORDERABLES Final Result Performing Organization Address [facility] Co de Phone Number INTERFACE [...] Final R esult Performing Organization Address [facility] Co de Phone Number INTERFACE [...] Final Resul t Performing Organization Address City/[facility]/ZIP Co de Phone Number INTERFACE SYSTEM Refer to clinic/hospital department documented in this encounter Visit Diagnoses Diagnosis Other specified rehabilitation procedure(V57.89)- Primary Other specified rehabilitation procedure documented in this encounter
--- OUTSIDE RECORDS SUMMARY | 2025-01-14 10:13 | XMS_ITS | Encounter Summary ---
Author Organization [facility] Address [address] [place] [address] Care Team Providers Care Gizzard Skin Remover Name Role Phone Unavailable Primary Care Provider Unavailabl e Encounter Details Date Type Department Care Team (Late st Contact Info) Description 01/04/2006 Outpatient Historical [facility] Trauma and General Surgery [address] [facility] [address] [facility] [place] [address] Jayden James MD [address] [facility] [address] [facility] [address] [facility] 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
--- OUTSIDE RECORDS SUMMARY | 2025-01-14 10:13 | XMS_ITS | Encounter Summary ---
Author Organization [facility] Address [address] [place] [address] Care Team Providers Care County Treasurer Name Role Phone Unavailable Primary Care Provider Unavailabl e Encounter Details Date Type Department Care Team (Late st Contact Info) Description 03/14/2006 Outpatient Historical [facility] Adult [facility]ists [facility] [address] [place] [address] Devan Agrawal MD [address] [facility] 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
--- OUTSIDE RECORDS SUMMARY | 2025-01-14 10:13 | XMS_ITS | Encounter Summary ---
Author Organization [facility] Address [address] [place] [address] Care Team Providers Care Human Resources Hr Generalist Name Role Phone Unavailable Primary Care Provider Unavailabl e Encounter Details Date Type Department Care Team (Late st Contact Info) Description 01/06/2006 Outpatient Historical [facility] Trauma and General Surgery [address] [facility] [address] [facility] [place] [address] Jayden James MD [address] [facility] [address] [facility] [place] [address] Social History Tobacco Use Types Packs/Day Years Used Date Smoking Tobacco: Never Assessed Sex and Gender Information Value Date Recorded Sex Assigned at Not on file 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
--- OUTSIDE RECORDS SUMMARY | 2025-01-14 10:13 | XMS_ITS | Encounter Summary ---
Author Organization [employer] Address [address] [place] [address] Care Team Providers Care Merchandise Marker Name Role Phone Unavailable Primary Care Provider Unavailabl e Encounter Details Date Type Department Care Team (Latest Contact Info) Description 03/15/2006 Inpatient Historical HIS PATIENT IN A BED Yenny Hauser MD NO ADDRESS ON FILE Devan Agrawal MD [address] [facility] 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 Gender Identity Not on file Sexual [...] esult Performing Organization Address City/[facility] Phone Number INTERFACE SYSTEM Refer [...] esult Performing Organization Address City/[facility] Phone Number INTERFACE SYSTEM Refer to clinic/hospital department * MAGNESIUM LEVEL (03/19/2006 4:38 AM CDT) MAGNESIUM 1.7 1.5 - 2.5 mg/dL INTERFACE SYSTEM 03/19/2006 4:38 AM CDT Yenny Hauser MD CHEMISTRY ORDERABLES Final Re sult Performing Organization Address City/[facility] Co de Phone Number [...] sult Performing Organization Address City/[facility] Co de Phone Number INTERFACE SYSTEM Refer to clinic/hospital department * VANCOMYCIN LEVEL TROUGH (03/18/2006 11:30 AM CDT) Pathologist [facility] VANCOMYCIN, TROUGH 11.5 5.0 - 15.0 ug/mL INTERFACE SYSTEM Comment: Vancomycin Trough Toxic Level= >15.0 ug/mL 03/18/2006 11:3 0 AM CDT Yenny Hauser MD CHEMISTRY ORDERABLES Final Re sult Performing Organization Address [facility] Co de Phone Number INTERFACE SYSTEM Refer to clinic/hospital department * (ABNORMAL) CBC WITH DIFFERENTIAL (03/18/2006 9:08 AM CDT) Pathologist [facility] NEUTROPHILS 76(H) 45 - 70 % [...] ult Performing Organization Address City/[facility] de Phone Number INTERFACE SYSTEM Refer [...] ORDERABLES Final Resu lt Performing Organization Address [facility] Phone Number INTERFACE SYSTEM Refer [...] HEMATOLOGY ORDERABLES Final Result Performing Organization Address [facility] Phone Number INTERFACE SYSTEM Refer [...] HEMATOLOGY ORDERABLES Final Result Performing Organization Address [facility] Phone Number INTERFACE SYSTEM Refer to clinic/hospital department * (ABNORMAL) C-REACTIVE PROTEIN (03/17/2006 4:45 AM CDT) CRP 2.4(H) 0.0 - 0.8 mg/dL INTERFACE SYSTEM 03/17/2006 4:45 AM CDT Historical Provider CHEMISTRY ORDERABLES Final R esult Performing Organization Address [facility] Phone Number INTERFACE SYSTEM Refer [...] esult Performing Organization Address City/[facility] Phone Number INTERFACE SYSTEM Refer to clinic/hospital department * (ABNORMAL) ACETONE QUALITATIVE (03/16/2006 6:30 PM CDT) ACETONE QUAL 2+ (30 mg/dL)(A) Neg (<10 mg/dL) INTERFACE SYSTEM 03/16/2006 6:30 PM CDT us Historical Provider CHEMISTRY ORDERABLES Final R esult Performing Organization Address [facility] Phone Number INTERFACE SYSTEM Refer to clinic/hospital department * LACTIC ACID (03/16/2006 6:30 PM CDT) LACTIC ACID 1.0 0.5 - 2.2 mmol/L INTERFACE SYSTEM 03/16/2006 6:30 PM CDT us Historical Provider CHEMISTRY ORDERABLES Final R esult Performing Organization Address [facility] Phone Number INTERFACE SYSTEM Refer [...] ORDERABLES Final Resu lt Performing Organization Address [facility] Phone Number INTERFACE SYSTEM Refer [...] patients with mechanical heart valves or post UT. Pediatric (12 years and under): 1.5 - [...] ORDERABLES Final Result Performing Organization Address City/[facility] Phone Number INTERFACE SYSTEM Refer [...] esult Performing Organization Address City/[facility] de Phone Number INTERFACE SYSTEM Refer [...] ORDERABLES Final Res ult Performing Organization Address [facility] Phone Number INTERFACE SYSTEM Refer [...] ORDERABLES Final Res ult Performing Organization Address [facility] de Phone Number INTERFACE SYSTEM Refer [...]
--- OUTSIDE RECORDS SUMMARY | 2025-01-14 10:13 | XMS_ITS | Encounter Summary ---
Author Organization [facility] Address [address] [place] [address] Care Team Providers Care Piano Regulator Name Role Phone Unavailable Primary Care Provider Unavailabl e Encounter Details Date Type Department Care Team (Late st Contact Info) Description 03/10/2006 Outpatient Historical [facility] [address] [address] Rita Esqueda MD [id number], [place] [address] Social History Tobacco Use Types Packs/Day Years Used Date Smoking Tobacco: Never Assessed Sex and Gender Information Value Date Recorded Sex Assigned at Not on file Legal Sex Male 3:46 AM RN HOME [facility] Gender Identity Not on file Sexual Orientation Not on file documented as of this encounter Plan of Treatment Not on file documented as of this encounter Visit Diagnoses Not on filedocumented in this encounter
--- OUTSIDE RECORDS SUMMARY | 2025-01-14 10:13 | XMS_ITS | Encounter Summary ---
Author Organization [facility] Address [address] [place] [address] Care Team Providers Care Bridge Expert Name Role Phone Unavailable Primary Care Provider Unavailabl e Encounter Details Date Type Department Care Team (Late st Contact Info) Description 05/13/2019 Lab Requisition [facility] [address] [place] [address] [facility], External Provider [address] [place] [address] Other fatigue Social History Tobacco Use Types Packs/Day Years Used Date Smoking Tobacco: Never Assessed Sex and Gender Information Value Date Recorded Sex Assigned at Not on file Legal Sex Male 3:46 AM UNIT EDUCATOR Gender Identity Not on file Sexual Orientation Not on file documented as of this encounter Plan of Treatment Not on file documented as of this encounter Procedures Procedure Name Priority Date/Time Associated Diagnosis Comments CBC WITH DIFFERENTIAL Stat 05/13/2019 4:50 PM UNIT EDUCATOR Other fatigue BASIC METABOLIC PANEL Stat 05/13/2019 4:50 PM UNIT EDUCATOR Other fatigue documented in this encounter Results * (ABNORMAL) CBC WITH DIFFERENTIAL (05/13/2019 4:50 PM UNIT EDUCATOR) [facility] WBC 6.1 4.5 - 10.5 K/uL 05/13/2019 9:52 PM UNIT EDUCATOR [facility] RBC 4.04(L) 4.50 - 5.40 M/uL 05/13/2019 9:52 PM UNIT EDUCATOR [facility] HEMOGLOBIN 12.1(L) 13.6 - 16.5 g/dL 05/13/2019 9:52 PM UNIT EDUCATOR [facility] HEMATOCRIT 37.1(L) 40.0 - 48.0 % 05/13/2019 9:52 PM [facility] MCV 91.7 82.0 - 99.0 fL 05/13/2019 9:52 PM [facility] MCH 30.0 27.8 - 34.5 pg 05/13/2019 9:52 PM [facility] MCHC 32.7 32.5 - 35.5 g/dL 05/13/2019 9:52 PM [facility] RDW 14.9(H) 11.5 - 14.5 % 05/13/2019 9:52 PM [facility] PLATELETS 162 160 - 420 K/uL 05/13/2019 9:52 PM [facility] [employer] [facility] MPV 9.8 8.7 - 12.7 fL 05/13/2019 9:52 PM [facility] NEUTROPHILS 70 45 - 70 % 05/13/2019 9:52 PM [facility] LYMPHOCYTES 16 16 - 45 % 05/13/2019 9:52 PM [facility] MONOCYTES 10 3 - 13 % 05/13/2019 9:52 PM [facility] EOSINOPHILS 4 0 - 7 % 05/13/2019 9:52 PM [facility] BASOPHILS 1 0 - 2 % 05/13/2019 9:52 PM [facility] [employer] [facility] NEUTROPHIL ABSOLUTE 4.20 1.90 - 7.00 K/uL 05/13/2019 9:52 PM [facility] [employer] [facility] LYMPHOCYTE ABSOLUTE 0.90 K/uL 05/13/2019 9:52 PM [facility] MONOCYTE ABSOLUTE 0.60 K/uL 05/13/2019 9:52 PM [facility] EOSINOPHIL ABSOLUTE 0.30 0.00 - 0.70 K/uL 05/13/2019 9:52 PM [facility] BASOPHILS ABSOLUTE 0.00 K/uL 05/13/2019 9:52 PM [facility] [employer] [facility] Blood BLOOD SPECIMEN / Unknown Collection / Unknown 05/13/2019 4:50 PM UNIT EDUCATOR 05/13/2019 9:42 PM UNIT EDUCATOR us External Provider [facility] HEMATOLOGY ORDERABLES Fin al Result [facility] [employer] [facility] LESTER# [id number] [place] [address] * (ABNORMAL) BASIC METABOLIC PANEL (05/13/2019 4:50 PM UNIT EDUCATOR) SODIUM 143 136 - 145 mmol/L 05/13/2019 10:11 PM [facility] [employer] [facility] POTASSIUM 4.2 3.4 - 5.1 mmol/L 05/13/2019 10:11 PM [facility] [employer] [facility] CHLORIDE 104 98 - 107 mmol/L 05/13/2019 10:11 PM [facility] CO2 27 22 - 29 mmol/L 05/13/2019 10:11 PM [facility] CALCIUM 8.5(L) 8.6 - 10.4 mg/dL 05/13/2019 10:11 PM [facility] BUN 24(H) 6 - 20 mg/dL 05/13/2019 10:11 PM [facility] CREATININE 1.09 0.70 - 1.20 mg/dL 05/13/2019 10:11 PM [facility] Comment:The GFR result is no t clinically significant on patients <18 or >70 years of age. GLUCOSE 96 74 - 99 mg/dL 05/13/2019 10:11 PM [facility] [employer] [facility] GFR >60 mL/min/1.7 3 sq meter 05/13/2019 10:11 PM [facility] [place] [facility] Comment: eGFR has not been validated for [...] mL/min/1.7 3 sq meter 05/13/2019 10:11 PM UNIT EDUCATOR [facility] ANION GAP 12 8 - 16 mmol/L 05/13/2019 10:11 PM UNIT EDUCATOR [facility] Blood BLOOD SPECIMEN / Unknown Collection / Unknown 05/13/2019 4:50 PM UNIT EDUCATOR 05/13/2019 9:42 PM UNIT EDUCATOR External Provider [facility] CHEMISTRY ORDERABLES Johanne l Result [facility] CLIA# [id number] [place] [address] documented in this encounter Visit Diagnoses Diagnosis Other fatigue documented in this encounter
--- NOTE | 2025-01-14 10:25 | PC.NURSE ---
pt had 2 small wounds on his R buttocks and 1 small wound on his L buttocks. this RN cleaned the wounds and dressed the wounds with a foam boarder. pt dressings has the date and initials on them
--- NOTE | 2025-01-14 10:30 | ECG_ITS ---
Test Date: 2025-01-14 11:08:04 Measurements Intervals [place] Rate: 67 P: 44 TX: 293 QRS: -22 QRSD: 107 T: 35 QT: 396 QTc: 419 Interpretive Statements SINUS RHYTHM WITH FIRST DEGREE AV BLOCK BORDERLINE LEFT AXIS DEVIATION [QRS AXIS < -20] MODERATE VOLTAGE CRITERIA FOR LVH, CONSIDER NORMAL VARIANT [MEETS CRITERIA IN ONE OF: R(aVL), S(V1), R(V5), R(V5/V6)+S(V1)] NONSPECIFIC T-WAVE ABNORMALITY ABNORMAL ECG Electronically Signed On 01-14-2025 11:42:53 CDT by Kasi Whitley M.D.
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
[2025-01-14 11:23] LABS: Hematocrit 33.3 % (42.0-52.0); Hemoglobin 10.2 g/dL (14.0-18.0); Immature Granulocyte Percent A 0.1 % (0-0.5); Lymphocytes Absolute Auto 0.60 K/mm3 (0.9-3.2); Mean Corpuscular HGB Conc 30.6 g/dl (32-36); Mean Corpuscular Hemoglobin 28.7 pg (26-34); Mean Corpuscular Volume 93.5 fl (80-100); Nucleated Red Blood Cells Absolute Auto 0.000 K/mm3 (0.0-0.012); Nucleated Red Blood Cells Perc 0.0 % (0.0-0.2); Platelet Count Result 121 k/mm3 (150-375); Red Blood Count 3.56 M/mm3 (4.6-6.20); White Blood Count 6.9 K/mm3 (4.5-10.0)
[2025-01-14] MEDS: SODIUM CHLORIDE 0.9% IV 1,000 ML 999 ML IV CONT (11:23)
--- NOTE | 2025-01-14 11:24 | PC.NURSE ---
EDP Dr. Cormier changed pt suprapubic catheter using the kit the pt brought per pt request
[2025-01-14 11:25] VITALS: BP 140/68; PULSE 66; RESP 14; O2SAT 100
[2025-01-14 11:34] LABS: Alanine Aminotransferase 15 U/L (6-50); Albumin Level 3.3 g/dL (3.5-5.1); Alkaline Phosphatase 75 U/L (38-126); Anion Gap 6 mmol/L (4-12); Aspartate Amino Transferase 22 U/L (17-59); Bilirubin,Total 0.5 mg/dL (0.2-1.3); Blood Urea Nitrogen 26 mg/dL (9-20); Calcium 8.1 mg/dL (8.4-10.2); Carbon Dioxide 29 mmol/L (22-30); Chloride 103 mmol/L (98-107); Estimated CRCL calculation 68 ml/min; Estimated Glomerular Filt Rate > 60; Glucose 114 mg/dL (65-110); Potassium 3.5 mmol/L (3.4-5.0); Sodium 138 mmol/L (137-145); Total Protein 6.0 g/dL (6.3-8.2)
[2025-01-14 11:48] LABS: Add Urine Microscopic? YES; Appearance Urine Clear (Clear); Glucose Urine UA Negative (Negative); Leukocyte Esterase Ur 1+ LEU/UL (Negative); Need Manual Microscopic Reviewed; Nitrate Urine Negative (Negative); Non Pathogenic Casts 0-2; Specific Grav Ur 1.009 (1.001-1.035)
[2025-01-14 12:06] VITALS: BP 149/72; PULSE 63; RESP 16; O2SAT 99
[2025-01-14 13:28] VITALS: BP 146/73; PULSE 63; RESP 14; O2SAT 100
[2025-01-14 14:50] VITALS: BP 180/88; PULSE 66; RESP 16; O2SAT 100
== END 2025-01-14 15:07 ==
PROVIDERS: Emergency Provider Emergency Medicine; PCP Internal Medicine
DX: N48.89 Other specified disorders of penis (principal); G82.54 Quadriplegia, C5-C7 incomplete; S14.105S Unspecified injury at C5 level of cervical spinal cord, sequela; I69.998 Other sequelae following unspecified cerebrovascular disease; H53.8 Other visual disturbances; I10 Essential (primary) hypertension; G89.4 Chronic pain syndrome; G93.41 Metabolic encephalopathy; K21.9 Gastro-esophageal reflux disease without esophagitis; D64.9 Anemia, unspecified; F32.A Depression, unspecified; Z96.0 Presence of urogenital implants; Z86.718 Personal history of other venous thrombosis and embolism; Z87.440 Personal history of urinary (tract) infections; Z87.891 Personal history of nicotine dependence; V29.99XS Rider (driver) (passenger) of other motorcycle injured in unspecified traffic accident, sequela; Z79.899 Other long term (current) drug therapy
CPT/HCPCS: 36415; 74176; 80053; 81001; 83605; 85025; 87086; 93005; 96360; 99284; J7030

== ENCOUNTER 2025-02-03 15:53 | Emergency (ER) | payer MEDICARE, OTHER, MEDICAID, SELFPAY ==
[2025-02-03 15:50] VITALS: BP 157/68; PULSE 70; RESP 16; TEMP 36.5; O2SAT 98
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
--- OUTSIDE RECORDS SUMMARY | 2025-02-03 16:59 | XMS_ITS | Clinical Summary ---
Author Organization [facility] [employer] Address [address] [place] [address] Care Team Providers Care Manager Distribution Name Role Phone Rod Strauss MD Primary Care Provider [phone] Source Comments [facility] [employer],non-owned Affiliates and Associated Physician Practices is amultiple site organization consisting of ambulatory clinics and hospital sitesin [place], [place], [place] and [place]. This disclosure is being madepursuant to the Care Everywhere program and may not contain all information available regarding this patient. Last updated 18.[facility] [employer] Allergies Active Allergy Reactions Criticality Noted Date [...] MV. LVEF >70%. Follows with [facility]. -continue home metoprolol 25mg BID Presence [...] (05/30/2024): Last Assessment & Plan: H/o L PATTERN DRAFTER infarct 2019, continue asa/statin Hydronephrosis 05/10/2019 Pyelonephritis [...] that has since passed. Urine cx from [facility] on 05/04 also growing pseudomonas, resistant [...] to reach son and obtained collateral from [facility] - CT Head today. - Fall precautions, [...] medical care, and heating? Patient declined 05/31/2024 [facility] - Occupational Stress Questionnaire Answer Date [...] any time in the [facility], were you homeless or living in a intermediate (including now)? Patient declined 05/31/2024 Sex and Gender Information Value Date Recorded Sex Assigned at Not on file Legal Sex Male 5:23 PM SHOPPER'S AIDE Gender Identity Not on file Sexual Orientation Not on file Last Filed Vital Signs Vital Sign Reading Time Taken Comments Blood Pressure 135/77 06/15/2024 11:48 AM SHOPPER'S AIDE Pulse 74 06/15/2024 11:48 AM SHOPPER'S AIDE Temperature 36.4 C (97.6 F) 06/15/2024 8:35 AM SHOPPER'S AIDE Respiratory Rate 16 06/15/2024 11:48 AM SHOPPER'S AIDE Oxygen Saturation 97% 06/15/2024 11:48 AM SHOPPER'S AIDE Inhaled Oxygen Concentration 40% 06/04/2024 9 :43 AM SHOPPER'S AIDE Weight 88.5 kg (195 lb) 06/15/2024 8:35 AM SHOPPER'S AIDE Height 190.5 cm (6' 3) 06/15/2024 8:35 AM SHOPPER'S AIDE Body Mass Index 24.37 06/15/2024 8:35 AM SHOPPER'S AIDE Plan of Treatment Health Maintenance Due Date [...] this topic Medical Devices Implanted Type Area Product Sales Engineer Device Identifier Shelf Expiration Date Model / Serial / Lot Synchromed Iii Pump Implanted:Qty: 1 on 06/04/2024 by Deshawn Schultz MD at [facility] Left: Abdomen [employer] 08/18/2025 8667-40 / [id number] / Ascenda Implanted:Qty: 1 on 06/04/2024 by Deshawn Schultz MD at [facility] Left: Abdomen [employer] 12/14/2024 [id number] / / [id number] Procedures Procedure Name Priority Date/Time Associated Diagnosis Comments HEPATITIS C AB SCREEN RFLX NAAT QUANT STAT 06/06/2024 11:49 AM SHOPPER'S AIDE from Last 3 Months or Most Recently Relevant to Health Maintenance Results * HEPATITIS C AB SCREEN RFLX NAAT QUANT (06/06/2024 11:49 AM SHOPPER'S AIDE) Hepatitis C Antibody Non-react lottie Non-reac tive 06/06/2024 1:01 PM SHOPPER'S AIDE [facility] Comment:Hepatitis C Antibody screen [...] Lab Venipuncture / Unknown 06/06/2024 11:49 AM SHOPPER'S AIDE 06/06/2024 12:05 PM SHOPPER'S AIDE Salena Griffin DENTURE PROCESSOR-NATIONAL RECRUITER LAB - CHEMISTRY ORDERABLES F inal Result [facility] [address] [place] [id number], [facility] [phone] from Last 3 Months or Most Recently Relevant to Health Maintenance Additional Health Concerns Infection Onset Date Last Indicated ESBL GNR 06/01/2024 06/01/[address] [place] [address] [facility] [place] [address] MEDICARE Advance Directives * Full Code (Latest Code Status on File) Date Activated Date Inactivated Comments 05/31/2024 11:27 PM 06/09/2024 8:37 PM Care Teams Manager Distribution Relationship Specialty Start Date End Date Rod Strauss MD [address] [place] [id number] PCP - General Internal Medicine 06/15/24
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
--- OUTSIDE RECORDS SUMMARY | 2025-02-03 16:59 | XMS_ITS | Encounter Summary ---
Author Organization [facility] Address 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
--- OUTSIDE RECORDS SUMMARY | 2025-02-03 16:59 | XMS_ITS | Encounter Summary ---
Author Organization [facility] Address [address] [place] [address] Care Team Providers Care Manager Gallery Name Role Phone Unavailable Primary Care Provider Unavailabl e Encounter Details Date Type Department Care Team (Late st Contact Info) Description 01/13/2006 Outpatient Historical [facility] Support Serv. ([facility]) [address] 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
--- OUTSIDE RECORDS SUMMARY | 2025-02-03 17:00 | XMS_ITS | Clinical Summary ---
Author Organization [facility] Administrative Offices Address [address] [place] [address] Care Team Providers Care Hospice Care Consultant Name Role Phone Unavailable Primary Care Provider [...] daily. 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 Urine cx from [facility] on 05/04 also growing pseudomonas, resistant [...] to reach son and obtained collateral from [facility] - CT Head today. - Fall [...] Baclofen pump rx'd by the [facility]. Iron deficiency anemia, unspecified 10/26/2012 Gastric [...] Plan: Uses wheelchair at baseline. Resides at [facility]. Has baclofen pump/neurostimulator in place. 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
--- OUTSIDE RECORDS SUMMARY | 2025-02-03 17:00 | XMS_ITS | Encounter Summary ---
Author Organization [facility] Address [address] [place] [address] Care Team Providers Care Regional Marketing Manager Name Role Phone Unavailable Primary Care Provider Unavailabl e Encounter Details Date Type Department Care Team (Late st Contact Info) Description 01/11/2006 Outpatient Historical [facility] Trauma and General Surgery [address] [id number] [place] [address] [place] [address] Social History Tobacco Use Types Packs/Day Years Used Date Smoking Tobacco: Never Assessed Sex and Gender Information Value Date Recorded Sex Assigned at Not on file 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
--- OUTSIDE RECORDS SUMMARY | 2025-02-03 17:00 | XMS_ITS | Encounter Summary ---
Author Organization [facility] Address 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 Gender Identity Not on file Sexual Orientation [...] ORDERABLES Final Re sult Performing Organization Address [facility] Phone Number INTERFACE SYSTEM Refer to clinic/hospital department * C-REACTIVE PROTEIN (04/05/2006 5:15 AM CDT) Pathologist [facility] CRP 0.2 0.0 - 0.8 mg/dL INTERFACE SYSTEM 04/05/2006 5:15 AM CDT [facility] CHEMISTRY ORDERABLES Final Res ult Performing Organization Address [facility] Phone Number INTERFACE SYSTEM Refer [...] ORDERABLES Final R esult Performing Organization Address [facility] Phone Number INTERFACE SYSTEM Refer to clinic/hospital [...] Performing Organization Address [facility] Phone Number INTERFACE SYSTEM Refer to clinic/hospital [...] ORDERABLES Final Res ult Performing Organization Address [facility] Phone Number INTERFACE SYSTEM Refer to clinic/hospital department * C-REACTIVE PROTEIN (03/29/2006 5:15 AM CDT) CRP 0.3 0.0 - 0.8 mg/dL INTERFACE SYSTEM 03/29/2006 5:15 AM CDT us Keenan Mandujano MD CHEMISTRY ORDERABLES Final Resu lt Performing Organization Address [facility] Phone Number INTERFACE SYSTEM Refer to clinic/hospital [...] mmol/L INTERFACE SYSTEM 03/29/2006 5:15 AM CDT us Keenan Mandujano MD CHEMISTRY ORDERABLES Final Resu lt Performing Organization Address [facility] Phone Number INTERFACE SYSTEM Refer to clinic/hospital [...] Performing Organization Address [facility] Phone Number INTERFACE SYSTEM Refer to clinic/hospital [...] INTERFACE SYSTEM 03/24/2006 12:1 0 PM CDT [facility] HEMATOLOGY ORDERABLES Final Re sult Performing Organization Address [facility] Phone Number INTERFACE SYSTEM Refer to clinic/hospital department * VANCOMYCIN LEVEL TROUGH (03/24/2006 12:10 PM CDT) VANCOMYCIN, TROUGH 11.3 5.0 - 15.0 ug/mL INTERFACE SYSTEM Comment: Vancomycin Trough Toxic Level= >15.0 ug/mL 03/24/2006 12:1 0 PM CDT [employer] Zaid CHEMISTRY ORDERABLES Final Res ult Performing Organization Address [facility] Phone Number INTERFACE SYSTEM Refer to clinic/hospital department * C-REACTIVE PROTEIN (03/24/2006 12:10 PM CDT) CRP 0.6 0.0 - 0.8 mg/dL INTERFACE SYSTEM 03/24/2006 12:1 0 PM CDT [facility] CHEMISTRY ORDERABLES Final Res ult Performing Organization Address [facility] Phone Number INTERFACE SYSTEM Refer to clinic/hospital [...] ORDERABLES Final Res ult Performing Organization Address City/[facility] Co de Phone Number INTERFACE SYSTEM [...] INTERFACE SYSTEM 03/23/2006 11:3 0 AM CDT [facility] HEMATOLOGY ORDERABLES Final Re sult Performing Organization Address [facility] de Phone Number INTERFACE [...] INTERFACE SYSTEM 03/23/2006 11:3 0 AM CDT [facility] HEMATOLOGY ORDERABLES Final Re sult Performing Organization Address City/[facility] Co de Phone Number INTERFACE SYSTEM Refer to clinic/hospital department * VANCOMYCIN LEVEL TROUGH (03/23/2006 11:30 AM CDT) VANCOMYCIN, TROUGH 6.2 5.0 - 15.0 ug/mL INTERFACE SYSTEM Comment: Vancomycin Trough Toxic Level= >15.0 ug/mL 03/23/2006 11:3 0 AM CDT [facility] CHEMISTRY ORDERABLES Final Res ult Performing Organization Address [facility] Phone Number INTERFACE SYSTEM Refer to clinic/hospital department * (ABNORMAL) C-REACTIVE PROTEIN (03/23/2006 11:30 AM CDT) CRP 1.0(H) 0.0 - 0.8 mg/dL INTERFACE SYSTEM 03/23/2006 11:3 0 AM CDT us [facility] CHEMISTRY ORDERABLES Final Res ult Performing Organization Address [facility] Phone Number INTERFACE SYSTEM Refer [...] INTERFACE SYSTEM 03/23/2006 11:3 0 AM [facility] ORDERABLES Final Res ult Performing Organization Address [facility] Phone Number INTERFACE SYSTEM Refer to clinic/hospital [...] Performing Organization Address [facility] Phone Number INTERFACE SYSTEM Refer to clinic/hospital [...] /HPF INTERFACE SYSTEM 03/22/2006 8:30 PM CDT [facility] URINE ORDERABLES Final Result Performing Organization Address [facility] Phone Number INTERFACE SYSTEM Refer to clinic/hospital [...] Sushil Arroyo MD CHEMISTRY ORDERABLES Final R [facility] Performing Organization Address [facility] de Phone Number INTERFACE [...] Sushil Arroyo MD CHEMISTRY ORDERABLES Final R [facility] Performing Organization Address City/[facility] de Phone Number INTERFACE [...] Performing Organization Address [facility] Phone Number INTERFACE SYSTEM Refer to clinic/hospital [...] Performing Organization Address [facility] Phone Number INTERFACE SYSTEM Refer to clinic/hospital [...] Performing Organization Address [facility] Phone Number INTERFACE SYSTEM Refer to clinic/hospital [...] ORDERABLES Final Resul t Performing Organization Address [facility] Phone Number INTERFACE SYSTEM Refer to clinic/hospital department documented in this encounter Visit Diagnoses Diagnosis Other specified rehabilitation procedure(V57.89)- Primary Other specified rehabilitation procedure documented in this encounter
--- OUTSIDE RECORDS SUMMARY | 2025-02-03 17:00 | XMS_ITS | Encounter Summary ---
Author Organization [facility] Address [address] [place] [address] Care Team Providers Care Personnel And Payroll Technician Name Role Phone Unavailable Primary Care Provider Unavailabl e Encounter Details Date Type Department Care Team (Late st Contact Info) Description 03/15/[address] 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
--- OUTSIDE RECORDS SUMMARY | 2025-02-03 17:00 | XMS_ITS | Encounter Summary ---
Author Organization [facility] Address [address] [place] [address] Care Team Providers Care Mri Assistant Name Role Phone Unavailable Primary Care Provider Unavailabl e Encounter Details Date Type Department Care Team (Late st Contact Info) Description 01/08/2006 Outpatient Historical [facility] Trauma and General Surgery [address] [facility] [place] [address] Jayden James MD [address] [facility] [address] [facility] [place] [address] Social History Tobacco Use Types Packs/Day Years Used Date Smoking Tobacco: Never Assessed Sex and Gender Information Value Date Recorded Sex Assigned at Not on file 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
--- OUTSIDE RECORDS SUMMARY | 2025-02-03 17:00 | XMS_ITS | Encounter Summary ---
Author Organization [facility] Address [address] [place] [address] Care Team Providers Care Freight Broker Agent Name Role Phone Unavailable Primary Care Provider Unavailabl e Encounter Details Date Type Department Care Team (Late st Contact Info) Description 05/13/2019 Lab Requisition [facility] [address] [place] [address] [facility], External Provider [address] [place] [address] Other fatigue Social History Tobacco Use Types Packs/Day Years Used Date Smoking Tobacco: Never Assessed Sex and Gender Information Value Date Recorded Sex Assigned at Not on file Legal Sex Male 3:46 AM TURNER IN Gender Identity Not on file Sexual Orientation Not on file documented as of this encounter Plan of Treatment Not on file documented as of this encounter Procedures Procedure Name Priority Date/Time Associated Diagnosis Comments CBC WITH DIFFERENTIAL Stat 05/13/2019 4:50 PM TURNER IN Other fatigue BASIC METABOLIC PANEL Stat 05/13/2019 4:50 PM TURNER IN Other fatigue documented in this encounter Results * (ABNORMAL) CBC WITH DIFFERENTIAL (05/13/2019 4:50 PM TURNER IN) [facility] WBC 6.1 4.5 - 10.5 K/uL 05/13/2019 9:52 PM TURNER IN [facility] RBC 4.04(L) 4.50 - 5.40 M/uL 05/13/2019 9:52 PM TURNER IN [facility] HEMOGLOBIN 12.1(L) 13.6 - 16.5 g/dL 05/13/2019 9:52 PM TURNER IN [facility] HEMATOCRIT 37.1(L) 40.0 - 48.0 % 05/13/2019 9:52 PM [facility] MCV 91.7 82.0 - 99.0 fL 05/13/2019 9:52 PM [facility] MCH 30.0 27.8 - 34.5 pg 05/13/2019 9:52 PM [facility] MCHC 32.7 32.5 - 35.5 g/dL 05/13/2019 9:52 PM [facility] RDW 14.9(H) 11.5 - 14.5 % 05/13/2019 9:52 PM [facility] PLATELETS 162 160 - 420 K/uL 05/13/2019 9:52 PM [facility] Information Assurance [facility] MPV 9.8 8.7 - 12.7 fL 05/13/2019 9:52 PM [facility] NEUTROPHILS 70 45 - 70 % 05/13/2019 9:52 PM [facility] LYMPHOCYTES 16 16 - 45 % 05/13/2019 9:52 PM [facility] MONOCYTES 10 3 - 13 % 05/13/2019 9:52 PM [facility] EOSINOPHILS 4 0 - 7 % 05/13/2019 9:52 PM [facility] BASOPHILS 1 0 - 2 % 05/13/2019 9:52 PM [facility] Information Assurance [facility] NEUTROPHIL ABSOLUTE 4.20 1.90 - 7.00 K/uL 05/13/2019 9:52 PM [facility] Information Assurance [facility] LYMPHOCYTE ABSOLUTE 0.90 K/uL 05/13/2019 9:52 PM [facility] LABOR[facility] MONOCYTE ABSOLUTE 0.60 K/uL 05/13/2019 9:52 PM [facility] EOSINOPHIL ABSOLUTE 0.30 0.00 - 0.70 K/uL 05/13/2019 9:52 PM [facility] BASOPHILS ABSOLUTE 0.00 K/uL 05/13/2019 9:52 PM [facility] Information Assurance [facility] Blood BLOOD SPECIMEN / Unknown Collection / Unknown 05/13/2019 4:50 PM TURNER IN 05/13/2019 9:42 PM TURNER IN us External Provider [facility] HEMATOLOGY ORDERABLES Fin al Result [facility] Information Assurance [facility] LESTER# [id number] [place] [address] * (ABNORMAL) BASIC METABOLIC PANEL (05/13/2019 4:50 PM TURNER IN) SODIUM 143 136 - 145 mmol/L 05/13/2019 10:11 PM [facility] Information Assurance [facility] POTASSIUM 4.2 3.4 - 5.1 mmol/L 05/13/2019 10:11 PM [facility] Information Assurance [facility] CHLORIDE 104 98 - 107 mmol/L 05/13/2019 10:11 PM [facility] CO2 27 22 - 29 mmol/L 05/13/2019 10:11 PM [facility] CALCIUM 8.5(L) 8.6 - 10.4 mg/dL 05/13/2019 10:11 PM [facility] BUN 24(H) 6 - 20 mg/dL 05/13/2019 10:11 PM [facility] CREATININE 1.09 0.70 - 1.20 mg/dL 05/13/2019 10:11 PM [facility] Comment:The GFR result is no t clinically significant on patients <18 or >70 years of age. GLUCOSE 96 74 - 99 mg/dL 05/13/2019 10:11 PM [facility] Information Assurance [facility] GFR >60 mL/min/1.7 3 sq meter 05/13/2019 10:11 PM [facility] Information Assurance [facility] Comment: eGFR has not been validated [...] mL/min/1.7 3 sq meter 05/13/2019 10:11 PM TURNER IN [facility]ORY [facility] ANION GAP 12 8 - 16 mmol/L 05/13/2019 10:11 PM TURNER IN [facility] LAB[facility] Blood BLOOD SPECIMEN / Unknown Collection / Unknown 05/13/2019 4:50 PM TURNER IN 05/13/2019 9:42 PM TURNER IN External Provider [facility] CHEMISTRY ORDERABLES Johanne l Result [facility] LAB[facility] CLIA# [id number] [place] [address] documented in this encounter Visit Diagnoses Diagnosis Other fatigue documented in this encounter
--- OUTSIDE RECORDS SUMMARY | 2025-02-03 17:00 | XMS_ITS | Encounter Summary ---
Author Organization [employer] Address [address] [place] [address] Care Team Providers Care Drill Press Set Up Operator Name Role Phone Unavailable Primary Care Provider Unavailabl e Encounter Details Date Type Department Care Team (Latest Contact Info) Description 03/15/2006 Inpatient Historical HIS PATIENT IN A BED Yenny Hauser MD NO ADDRESS ON FILE Devan Agrawal MD [address] [facility] 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 Gender Identity Not on file Sexual Orientation [...] ORDERABLES Final R esult Performing Organization Address [facility] Phone Number INTERFACE SYSTEM Refer [...] ORDERABLES Final R esult Performing Organization Address City/[facility] Phone Number INTERFACE SYSTEM Refer to clinic/hospital department * MAGNESIUM LEVEL (03/19/2006 4:38 AM CDT) MAGNESIUM 1.7 1.5 - 2.5 mg/dL INTERFACE SYSTEM 03/19/2006 4:38 AM CDT Yenny Hauser MD CHEMISTRY ORDERABLES Final Re sult Performing Organization Address City/[facility] Co de [...] ORDERABLES Final Re sult Performing Organization Address City/[facility] Co de Phone Number INTERFACE SYSTEM Refer to clinic/hospital department * VANCOMYCIN LEVEL TROUGH (03/18/2006 11:30 AM CDT) Pathologist [facility] VANCOMYCIN, TROUGH 11.5 5.0 - 15.0 ug/mL INTERFACE SYSTEM Comment: Vancomycin Trough Toxic Level= >15.0 ug/mL 03/18/2006 11:3 0 AM CDT Yenny Hauser MD CHEMISTRY ORDERABLES Final Re sult Performing Organization Address [facility] Co de [...] ORDERABLES Final Res ult Performing Organization Address City/[facility] [...] ORDERABLES Final Resu lt Performing Organization Address [facility] Phone Number INTERFACE SYSTEM Refer [...] HEMATOLOGY ORDERABLES Final Result Performing Organization Address [facility] Phone Number INTERFACE SYSTEM Refer [...] HEMATOLOGY ORDERABLES Final Result Performing Organization Address [facility] Phone Number INTERFACE SYSTEM Refer to clinic/hospital department * (ABNORMAL) C-REACTIVE PROTEIN (03/17/2006 4:45 AM CDT) CRP 2.4(H) 0.0 - 0.8 mg/dL INTERFACE SYSTEM 03/17/2006 4:45 AM CDT Historical Provider CHEMISTRY ORDERABLES Final R esult Performing Organization Address [facility] Phone Number INTERFACE SYSTEM Refer [...] ORDERABLES Final R esult Performing Organization Address City/[facility] Phone Number INTERFACE SYSTEM Refer to clinic/hospital department * (ABNORMAL) ACETONE QUALITATIVE (03/16/2006 6:30 PM CDT) ACETONE QUAL 2+ (30 mg/dL)(A) Neg (<10 mg/dL) INTERFACE SYSTEM 03/16/2006 6:30 PM CDT us Historical Provider CHEMISTRY ORDERABLES Final R esult Performing Organization Address [facility] Phone Number INTERFACE SYSTEM Refer to clinic/hospital department * LACTIC ACID (03/16/2006 6:30 PM CDT) LACTIC ACID 1.0 0.5 - 2.2 mmol/L INTERFACE SYSTEM 03/16/2006 6:30 PM CDT us Historical Provider CHEMISTRY ORDERABLES Final R esult Performing Organization Address [facility] Phone Number INTERFACE SYSTEM Refer [...] ORDERABLES Final Resu lt Performing Organization Address [facility] Phone Number INTERFACE SYSTEM Refer [...] patients with mechanical heart valves or post [place]. Pediatric (12 years and under): 1.5 - [...] HEMATOLOGY ORDERABLES Final Result Performing Organization Address City/[facility] Phone Number INTERFACE SYSTEM Refer [...] ORDERABLES Final R esult Performing Organization Address City/[facility] [...] ORDERABLES Final Res ult Performing Organization Address [facility] Phone Number INTERFACE SYSTEM Refer [...] ORDERABLES Final Res ult Performing Organization Address [facility] [...]
--- OUTSIDE RECORDS SUMMARY | 2025-02-03 17:00 | XMS_ITS | Encounter Summary ---
Author Organization [facility] Address [address] [place] [address] Care Team Providers Care Brassiere Cup Mold Cutter Name Role Phone Unavailable Primary Care Provider Unavailabl e Encounter Details Date Type Department Care Team (Late st Contact Info) Description 03/14/2006 Outpatient Historical [facility] Adult Hospitalists [facility] [address] [place] [address] Devan Agrawal MD [address] [facility] 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
--- OUTSIDE RECORDS SUMMARY | 2025-02-03 17:00 | XMS_ITS | Encounter Summary ---
Author Organization [facility] Address [address] [place] [address] Care Team Providers Care Medical Care Administrator Name Role Phone Unavailable Primary Care Provider Unavailabl e Encounter Details Date Type Department Care Team (Late st Contact Info) Description 03/10/2006 Outpatient Historical [facility] Adult Hospitalists [address] [address] Rita Esqueda MD 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
--- OUTSIDE RECORDS SUMMARY | 2025-02-03 17:00 | XMS_ITS | Encounter Summary ---
Author Organization [facility] Address [address] [place] [address] Care Team Providers Care Manufacturing Business Analyst Name Role Phone Unavailable Primary Care Provider Unavailabl e Encounter Details Date Type Department Care Team (Late st Contact Info) Description 01/09/2006 Outpatient Historical [facility] Trauma and General Surgery [address] 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
--- OUTSIDE RECORDS SUMMARY | 2025-02-03 17:00 | XMS_ITS | Encounter Summary ---
Author Organization [facility] Address [address] [place] [address] Care Team Providers Care Medicine And Health Service Manager Name Role Phone Unavailable Primary Care Provider Unavailabl e Encounter Details Date Type Department Care Team (Late st Contact Info) Description 09/26/2019 Lab Requisition [facility] Laboratory Services [address] [place] [address] [facility], External Provider [address] [place] [address] Unspecified abnormal findings in urine Social History Tobacco Use Types Packs/Day Years Used Date Smoking Tobacco: Never Assessed Sex and Gender Information Value Date Recorded Sex Assigned at Not on file Legal 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 Gender Identity Not on file Sexual [...] - 145 mmol/L 09/26/2019 8:53 PM CDT [facility] - [facility] POTASSIUM 5.1 3.4 - 5.1 mmol/L 09/26/2019 8:53 PM CDT [facility] CHLORIDE 105 98 - 107 mmol/L 09/26/2019 8:53 PM [facility] CO2 23 22 - 29 mmol/L 09/26/2019 8:53 PM [facility] CALCIUM 8.6 8.6 - 10.4 mg/dL 09/26/2019 8:53 PM [facility] BUN 28(H) 6 - 20 mg/dL 09/26/2019 8:53 PM [facility] CREATININE 1.07 0.67 - 1.17 mg/dL 09/26/2019 8:53 PM [facility] Comment:The GFR result is no t clinically significant on patients <18 or >70 years of age. GLUCOSE 83 74 - 99 mg/dL 09/26/2019 8:53 PM [facility] TOTAL PROTEIN 6.7 6.3 - 8.7 g/dL 09/26/2019 8:53 PM [facility] ALBUMIN 4.2 3.5 - 5.2 g/dL 09/26/2019 8:53 PM [facility] BILIRUBIN TOTAL 0.3 0.2 - 1.3 mg/dL 09/26/2019 8:53 PM [facility] ALKALINE PHOSPHATASE 99 40 - 150 U/L 09/26/2019 8:53 PM [facility] AST 18 0 - 41 U/L 09/26/2019 8:53 PM [facility] ALT 18 0 - 41 U/L 09/26/2019 8:53 PM [facility] GFR >60 mL/min/1.7 3 sq meter 09/26/2019 8:53 PM [facility] Comment: eGFR has not been validated for [...] 09/26/2019 8:17 PM CDT us External Provider [facility] CHEMISTRY ORDERABLES Johanne l Result [facility] CLIA# [id number] [place] [address] * (ABNORMAL) CBC WITH DIFFERENTIAL (09/26/2019 3:44 [...] - 420 K/uL 09/26/2019 8:26 PM CDT [facility] MPV 10.2 8.7 - 12.7 fL 09/26/2019 8:26 PM CDT [facility] NEUTROPHILS 68 45 - 70 % 09/26/2019 8:26 PM CDT [facility] LYMPHOCYTES 16 16 - 45 % 09/26/2019 8:26 PM CDT [facility] MONOCYTES 10 3 - 13 % 09/26/2019 8:26 PM CDT [facility] EOSINOPHILS 5 0 - 7 % 09/26/2019 8:26 PM CDT [facility] BASOPHILS 1 0 - 2 % 09/26/2019 8:26 PM CDT [facility] NEUTROPHIL ABSOLUTE 4.50 1.90 - 7.00 K/uL 09/26/2019 8:26 PM CDT [facility] LYMPHOCYTE ABSOLUTE 1.10 0.70 - 4.50 K/uL 09/26/2019 8:26 PM CDT [facility] MONOCYTE ABSOLUTE 0.60 0.10 - 1.30 K/uL 09/26/2019 8:26 PM CDT [facility] EOSINOPHIL ABSOLUTE 0.40 0.00 - 0.70 K/uL 09/26/2019 8:26 PM CDT [facility] BASOPHILS ABSOLUTE 0.00 0.00 - 0.20 K/uL 09/26/2019 8:26 PM CDT [facility] Blood BLOOD SPECIMEN / Unknown Collection / Unknown 09/26/2019 3:44 PM CDT 09/26/2019 8:17 PM CDT us External Provider [facility] HEMATOLOGY ORDERABLES Fin al Result [facility] CLIA# [id number] [place] [address] * (ABNORMAL) URINALYSIS WITH REFLEX MICROSCOPIC (09/26/2019 [...] 0 - 2 /hpf [facility]2019 8:[facility] UA 0-2 0 - 2 /hpf [...] 09/26/2019 8:17 PM CDT us External Provider [facility] URINE ORDERABLES Final Re sult [facility] CLIA# [id number] [place] [address] documented in this encounter Visit Diagnoses Diagnosis Unspecified abnormal findings in urine documented in this encounter
--- OUTSIDE RECORDS SUMMARY | 2025-02-03 17:00 | XMS_ITS | Encounter Summary ---
Author Organization [employer] Address 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 Phone Number INTERFACE SYSTEM Refer to [...] ORDERABLES Final Re sult Performing Organization Address [facility] Phone Number INTERFACE SYSTEM Refer to [...] fL INTERFACE SYSTEM 03/14/2006 4:37 AM CDT [facility] Final Re sult Performing Organization Address [facility] Phone Number INTERFACE SYSTEM Refer to clinic/hospital department * MAGNESIUM LEVEL (03/14/2006 4:37 AM CDT) MAGNESIUM 2.0 1.5 - 2.5 mg/dL INTERFACE SYSTEM 03/14/2006 4:37 AM CDT Rita Esqueda MD CHEMISTRY ORDERABLES Final Res ult Performing Organization Address [facility] Phone Number INTERFACE SYSTEM [...] mmol/L INTERFACE SYSTEM 03/14/2006 4:37 AM CDT [facility] Final Res ult Performing Organization Address [facility] Phone Number INTERFACE SYSTEM Refer to clinic/hospital department * (ABNORMAL) C-REACTIVE PROTEIN (03/14/2006 4:37 AM CDT) CRP 4.1(H) 0.0 - 0.8 mg/dL INTERFACE SYSTEM 03/14/2006 4:37 AM CDT [facility] CHEMISTRY ORDERABLES Final Res ult Performing Organization Address [facility] Phone Number INTERFACE SYSTEM Refer to clinic/hospital department * VANCOMYCIN LEVEL TROUGH (03/13/2006 1:02 PM CDT) VANCOMYCIN, TROUGH 8.7 5.0 - 15.0 ug/mL INTERFACE SYSTEM Comment: Vancomycin Trough Toxic Level= >15.0 ug/mL 03/13/2006 1:02 PM CDT [facility]LES Final Res ult Performing Organization Address [facility] Phone Number INTERFACE SYSTEM [...] ORDERABLES Final R esult Performing Organization Address [facility] Phone Number INTERFACE SYSTEM Refer to clinic/hospital department * C-REACTIVE PROTEIN, CSF (03/12/2006 3:10 PM CDT) CRP, CSF 0.15 mg/dL INTERFACE SYSTEM Comment: Note: New methodology using CSF CRP (highly sensitive) assay is effective 12/11/03. No reference range has been established for CSF CRP. 03/12/2006 3:10 PM CDT Alexa Dillon MD BODY FLUIDS AND STOOLS Final Result Performing Organization Address [facility] Phone Number INTERFACE SYSTEM [...] AND STOOLS Final Result Performing Organization Address [facility] Phone Number INTERFACE SYSTEM Refer to clinic/hospital department * (ABNORMAL) TOTAL PROTEIN, CSF (03/12/2006 3:10 PM CDT) PROTEIN, CSF 365(H) 15 - 45 mg/dL INTERFACE SYSTEM Comment: New CSF Protein Quantitative Methodology - Note New Reference Range. bloody sample 03/12/2006 3:10 PM CDT Aman Gottlieb DO BODY FLUIDS AND STOOLS Final Result Performing Organization Address [facility] Phone Number INTERFACE SYSTEM [...] PM and read back verified. RBC, CSF [id number](H) <=0 /uL INTERFACE SYSTEM 03/12/2006 3:10 PM CDT us Aman Gottlieb DO BODY FLUIDS AND STOOLS Final Result Performing Organization Address [facility] de Phone Number INTERFACE SYSTEM Refer to [...] HEMATOLOGY ORDERABLES Final Result Performing Organization Address [facility] de Phone Number INTERFACE SYSTEM Refer to [...] HEMATOLOGY ORDERABLES Final Result Performing Organization Address [facility] Phone Number INTERFACE SYSTEM Refer to [...] ORDERABLES Final R esult Performing Organization Address [facility] de Phone Number INTERFACE SYSTEM Refer to [...] HEMATOLOGY ORDERABLES Final Result Performing Organization Address [facility] de Phone Number INTERFACE SYSTEM Refer to [...] HEMATOLOGY ORDERABLES Final Result Performing Organization Address [facility] Co de Phone Number INTERFACE SYSTEM Refer to clinic/hospital department * (ABNORMAL) C-REACTIVE PROTEIN (03/11/2006 4:40 AM CDT) CRP 6.5(H) 0.0 - 0.8 mg/dL INTERFACE SYSTEM 03/11/2006 4:40 AM CDT Sushil Arroyo MD CHEMISTRY ORDERABLES Final R [facility] Performing Organization Address [facility] Phone Number INTERFACE SYSTEM Refer to [...] [facility] Performing Organization Address [facility] Phone Number INTERFACE SYSTEM Refer to [...] patients with mechanical heart valves or post [place]. Pediatric (12 years and under): 1.5 - [...] HEMATOLOGY ORDERABLES Final Result Performing Organization Address [facility] Phone Number INTERFACE SYSTEM Refer to [...] ORDERABLES Final Resul t Performing Organization Address [facility] de Phone Number INTERFACE SYSTEM Refer to [...] HEMATOLOGY ORDERABLES Final Result Performing Organization Address [facility] de Phone Number INTERFACE SYSTEM Refer to [...] patients with mechanical heart valves or post [place]. Pediatric (12 years and under): 1.5 - [...] HEMATOLOGY ORDERABLES Final Result Performing Organization Address [facility] de Phone Number INTERFACE SYSTEM Refer to [...] patients with mechanical heart valves or post [place]. Pediatric (12 years and under): 1.5 - [...] ORDERABLES Final Res ult Performing Organization Address [facility] de Phone Number INTERFACE SYSTEM Refer to [...] ORDERABLES Final Res ult Performing Organization Address [facility] Phone Number INTERFACE SYSTEM Refer to [...] ORDERABLES Final Res ult Performing Organization Address [facility] Phone Number INTERFACE SYSTEM Refer to clinic/hospital department * (ABNORMAL) C-REACTIVE PROTEIN (03/08/2006 6:34 PM CDT) CRP 5.2(H) 0.0 - 0.8 mg/dL INTERFACE SYSTEM 03/08/2006 6:34 PM CDT us Keenan Mandujano MD CHEMISTRY ORDERABLES Final Resu lt Performing Organization Address [facility] Co nd Phone Number INTERFACE SYSTEM Refer to clinic/hospital [...] URINE ORDERABLES Final Result Performing Organization Address [facility] Phone Number INTERFACE SYSTEM Refer to [...] patients with mechanical heart valves or post [place]. Pediatric (12 years and under): 1.5 - [...] HEMATOLOGY ORDERABLES Final Result Performing Organization Address [facility] Phone Number INTERFACE SYSTEM Refer to [...] ORDERABLES Final Resul t Performing Organization Address [facility] Phone Number INTERFACE SYSTEM Refer to [...] HEMATOLOGY ORDERABLES Final Result Performing Organization Address [facility] Phone Number INTERFACE SYSTEM Refer to [...] HEMATOLOGY ORDERABLES Final Result Performing Organization Address [facility] de Phone Number INTERFACE SYSTEM Refer to [...] ORDERABLES Final R esult Performing Organization Address [facility] de Phone Number INTERFACE SYSTEM Refer to [...] patients with mechanical heart valves or post [place]. Pediatric (12 years and under): 1.5 - [...] HEMATOLOGY ORDERABLES Final Result Performing Organization Address [facility] Phone Number INTERFACE SYSTEM Refer to [...] URINE ORDERABLES Final Result Performing Organization Address [facility] Phone Number INTERFACE SYSTEM Refer to [...] HEMATOLOGY ORDERABLES Final Result Performing Organization Address [facility] Phone Number INTERFACE SYSTEM Refer to [...] HEMATOLOGY ORDERABLES Final Result Performing Organization Address [facility] Phone Number INTERFACE SYSTEM Refer to [...] ORDERABLES Final R esult Performing Organization Address [facility] de Phone Number INTERFACE SYSTEM Refer to [...] HEMATOLOGY ORDERABLES Final Result Performing Organization Address [facility] Phone Number INTERFACE SYSTEM Refer to [...] HEMATOLOGY ORDERABLES Final Result Performing Organization Address [facility] Co de Phone Number [...] INTERFACE SYSTEM 02/26/2006 12:4 4 PM CDT [facility] HEMATOLOGY ORDERABLES Final Re sult Performing Organization Address [facility] de Phone Number INTERFACE SYSTEM Refer to clinic/hospital department * C-REACTIVE PROTEIN (02/26/2006 12:44 PM CDT) CRP 0.2 0.0 - 0.8 mg/dL INTERFACE SYSTEM 02/26/2006 12:[address] [facility] CHEMISTRY ORDERABLES Final Res ult Performing Organization Address [facility] de Phone Number INTERFACE SYSTEM Refer to [...] ORDERABLES Final Res ult Performing Organization Address [facility] Phone Number INTERFACE SYSTEM Refer to [...] ORDERABLES Final Resul t Performing Organization Address [facility] Phone Number INTERFACE SYSTEM Refer to [...] K/uL INTERFACE SYSTEM 02/25/2006 4:36 AM CDT [facility] HEMATOLOGY ORDERABLES Final Re sult Performing Organization Address [facility] de Phone Number INTERFACE SYSTEM Refer to [...] fL INTERFACE SYSTEM 02/25/2006 4:36 AM CDT [facility] HEMATOLOGY ORDERABLES Final Re sult Performing Organization Address [facility] Phone Number INTERFACE SYSTEM Refer to [...] mmol/L INTERFACE SYSTEM 02/25/2006 4:36 AM CDT [facility] Zaid CHEMISTRY ORDERABLES Final Res ult Performing Organization Address [facility] Phone Number INTERFACE SYSTEM Refer to clinic/hospital department * C-REACTIVE PROTEIN (02/25/2006 4:36 AM CDT) CRP 0.2 0.0 - 0.8 mg/dL INTERFACE SYSTEM 02/25/2006 4:36 AM [facility] CHEMISTRY ORDERABLES Final Res ult Performing Organization Address [facility] Phone Number INTERFACE SYSTEM Refer to [...] URINE ORDERABLES Final Result Performing Organization Address [facility] Phone Number INTERFACE SYSTEM Refer to [...] patients with mechanical heart valves or post [place]. Pediatric (12 years and under): 1.5 - [...] patients with mechanical heart valves or post [place]. Pediatric (12 years and under): 1.5 - [...] HEMATOLOGY ORDERABLES Final Result Performing Organization Address [facility] Phone Number INTERFACE SYSTEM Refer [...] patients with mechanical heart valves or post [place]. Pediatric (12 years and under): 1.5 - [...] HEMATOLOGY ORDERABLES Final Result Performing Organization Address [facility] Phone Number INTERFACE SYSTEM Refer to [...] ORDERABLES Final Resul t Performing Organization Address [facility] Phone Number INTERFACE SYSTEM Refer to [...] patients with mechanical heart valves or post [place]. Pediatric (12 years and under): 1.5 - [...] HEMATOLOGY ORDERABLES Final Result Performing Organization Address [facility] Phone Number INTERFACE SYSTEM Refer to [...] patients with mechanical heart valves or post [place]. Pediatric (12 years and under): 1.5 - [...] HEMATOLOGY ORDERABLES Final Result Performing Organization Address [facility] de Phone Number INTERFACE SYSTEM Refer to [...] ORDERABLES Final Resul t Performing Organization Address [facility] de Phone Number INTERFACE SYSTEM Refer to [...] patients with mechanical heart valves or post [place]. Pediatric (12 years and under): 1.5 - [...] ORDERABLES Final Res ult Performing Organization Address [facility] Phone Number INTERFACE SYSTEM Refer [...] patients with mechanical heart valves or post [place]. Pediatric (12 years and under): 1.5 - [...] ORDERABLES Final Res ult Performing Organization Address [facility] Phone Number INTERFACE SYSTEM Refer to [...] patients with mechanical heart valves or post [place]. Pediatric (12 years and under): 1.5 - [...] HEMATOLOGY ORDERABLES Final Result Performing Organization Address [facility] de Phone Number INTERFACE SYSTEM Refer to [...] ORDERABLES Final Res ult Performing Organization Address [facility] Co de Phone Number [...] ORDERABLES Final Res ult Performing Organization Address [facility] Co de Phone Number [...] patients with mechanical heart valves or post [place] Pediatric (12 years and under): 1.5 - [...] HEMATOLOGY ORDERABLES Final Result Performing Organization Address [facility] Co de Phone Number INTERFACE [...] ORDERABLES Final Resul t Performing Organization Address [facility] Phone Number INTERFACE SYSTEM Refer to [...] HEMATOLOGY ORDERABLES Final Result Performing Organization Address [facility] Phone Number INTERFACE SYSTEM Refer to [...] HEMATOLOGY ORDERABLES Final Result Performing Organization Address [facility] de Phone Number INTERFACE SYSTEM Refer to [...] ORDERABLES Final R esult Performing Organization Address [facility] Co de Phone Number INTERFACE [...] patients with mechanical heart valves or post [place]. Pediatric (12 years and under): 1.5 - [...] HEMATOLOGY ORDERABLES Final Result Performing Organization Address [facility] Co de Phone Number [...] patients with mechanical heart valves or post [place]. Pediatric (12 years and under): 1.5 - [...] ORDERABLES Final Resu lt Performing Organization Address [facility] de Phone Number INTERFACE SYSTEM Refer to [...] ORDERABLES Final Res ult Performing Organization Address [facility] de Phone Number INTERFACE SYSTEM Refer to [...] ORDERABLES Final Res ult Performing Organization Address [facility] de Phone Number INTERFACE SYSTEM Refer to [...] patients with mechanical heart valves or post [place]. Pediatric (12 years and under): 1.5 - [...] ORDERABLES Final Res ult Performing Organization Address [facility] Phone Number INTERFACE SYSTEM Refer to [...] patients with mechanical heart valves or post [place]. Pediatric (12 years and under): 1.5 - [...] ORDERABLES Final Res t Performing Organization Address [facility] Phone Number INTERFACE SYSTEM Refer to [...] patients with mechanical heart valves or post [place]. Pediatric (12 years and under): 1.5 - 3.0 Although the target range in children is not well established , INR values of 1.5 - 3.0 are recommended for most patients. Higher values have been used in children with prosthetic cardiac valves and hereditary clotting disorders. (<3 days) therapeutic ranges have not been established. 01/28/2006 4:52 AM CDT Result [facility] Keenan Mandujano MD HEMATOLOGY ORDERABLES Final [facility] Performing Organization Address [facility] Phone Number INTERFACE SYSTEM Refer to [...] patients with mechanical heart valves or post [place]. Pediatric (12 years and under): 1.5 - [...] ORDERABLES Final Res ult Performing Organization Address [facility] Phone Number INTERFACE SYSTEM Refer to [...] patients with mechanical heart valves or post [place]. Pediatric (12 years and under): 1.5 - [...] ORDERABLES Final Res ult Performing Organization Address [facility] Phone Number INTERFACE SYSTEM Refer to [...] patients with mechanical heart valves or post [place]. Pediatric (12 years and under): 1.5 - [...] ORDERABLES Final Res ult Performing Organization Address [facility] Phone Number INTERFACE SYSTEM Refer [...] patients with mechanical heart valves or post [place]. Pediatric (12 years and under): 1.5 - 3.0 Although the target range in children is not well established , INR values of 1.5 - 3.0 are recommended for most patients. Higher values have been used in children with prosthetic cardiac valves and hereditary clotting disorders. (<3 days) therapeutic ranges have not been established. 01/23/2006 4:57 AM CDT Result [facility] Keenan Mandujano MD HEMATOLOGY ORDERABLES Final Res ult Performing Organization Address [facility] Phone Number INTERFACE SYSTEM Refer to [...] patients with mechanical heart valves or post [place]. Pediatric (12 years and under): 1.5 - [...] ORDERABLES Final Res ult Performing Organization Address [facility] Phone Number INTERFACE SYSTEM Refer to [...] ORDERABLES Final Resu lt Performing Organization Address [facility] Phone Number INTERFACE SYSTEM Refer to [...] patients with mechanical heart valves or post [place]. Pediatric (12 years and under): 1.5 - [...] ORDERABLES Final Res ult Performing Organization Address [facility] Phone Number INTERFACE SYSTEM Refer to [...] patients with mechanical heart valves or post [place]. Pediatric (12 years and under): 1.5 - [...] ORDERABLES Final Resu lt Performing Organization Address [facility] Phone Number INTERFACE SYSTEM Refer to [...] patients with mechanical heart valves or post [place]. Pediatric (12 years and under): 1.5 - [...] ORDERABLES Final Resu lt Performing Organization Address [facility] Co de Phone Number [...] patients with mechanical heart valves or post [place]. Pediatric (12 years and under): 1.5 - [...] HEMATOLOGY ORDERABLES Final Result Performing Organization Address [facility] Co de Phone Number [...] ORDERABLES Final R esult Performing Organization Address [facility] Co de Phone Number [...] ORDERABLES Final Resul t Performing Organization Address [facility]/ZIP Co de Phone Number INTERFACE SYSTEM Refer to clinic/hospital department documented in this encounter Visit Diagnoses Diagnosis Other specified rehabilitation procedure(V57.89)- Primary Other specified rehabilitation procedure documented in this encounter
--- OUTSIDE RECORDS SUMMARY | 2025-02-03 17:00 | XMS_ITS | Encounter Summary ---
Author Organization [facility] Address 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
--- OUTSIDE RECORDS SUMMARY | 2025-02-03 17:00 | XMS_ITS | Encounter Summary ---
Author Organization [facility] Address [address] [place] [address] Care Team Providers Care Front Desk Clerk Name Role Phone Unavailable Primary Care Provider Unavailabl e Encounter Details Date Type Department Care Team (Late st Contact Info) Description 01/04/2006 Outpatient Historical [facility] Trauma and General Surgery [address] [facility] [place] [address] Jayden James MD [address] [place] [address] Social History Tobacco Use Types Packs/Day Years Used Date Smoking Tobacco: Never Assessed Sex and Gender Information Value Date Recorded Sex Assigned at Not on file 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
--- OUTSIDE RECORDS SUMMARY | 2025-02-03 17:00 | XMS_ITS | Encounter Summary ---
Author Organization [employer] Address 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 Gender Identity Not on file Sexual [...] ORDERABLES Final Res ult Performing Organization Address [facility] Phone Number [...] ORDERABLES Final Res ult Performing Organization Address [facility] Phone Number [...] ORDERABLES Final Resu lt Performing Organization Address [facility] Phone Number INTERFACE SYSTEM Refer to clinic/hospital department * (ABNORMAL) POC GLUCOSE (01/08/2006 9:26 PM CDT) GLUCOSE POC 133(H) 65 - 109 mg/dL INTERFACE SYSTEM 01/08/2006 9:26 PM CDT José Fine MD POINT OF CARE TESTING Final Result Performing Organization Address [facility] Phone Number INTERFACE SYSTEM Refer to clinic/hospital department * (ABNORMAL) POC GLUCOSE (01/08/2006 5:25 PM CDT) GLUCOSE POC 125(H) 65 - 109 mg/dL INTERFACE SYSTEM 01/08/2006 5:25 PM CDT José Fine MD POINT OF CARE TESTING Final Result Performing Organization Address [facility] Phone Number INTERFACE SYSTEM Refer to clinic/hospital department * (ABNORMAL) POC GLUCOSE (01/08/2006 11:50 AM CDT) GLUCOSE POC 122(H) 65 - 109 mg/dL INTERFACE SYSTEM 01/08/2006 11:5 0 AM CDT us José Fine MD POINT OF CARE TESTING Final Result Performing Organization Address [facility] Phone Number INTERFACE SYSTEM Refer to clinic/hospital department * (ABNORMAL) POC GLUCOSE (01/08/2006 5:35 AM CDT) GLUCOSE POC 128(H) 65 - 109 mg/dL INTERFACE SYSTEM 01/08/2006 5:35 AM CDT us José Fine MD POINT OF CARE TESTING Final Result Performing Organization Address [facility] Phone Number INTERFACE SYSTEM Refer to clinic/hospital department * (ABNORMAL) POC GLUCOSE (01/07/2006 8:48 PM CDT) GLUCOSE POC 124(H) 65 - 109 mg/dL INTERFACE SYSTEM 01/07/2006 8:48 PM CDT us José Fine MD POINT OF CARE TESTING Final Result Performing Organization Address [facility] Phone Number INTERFACE SYSTEM Refer to clinic/hospital department * (ABNORMAL) POC GLUCOSE (01/07/2006 4:51 PM CDT) GLUCOSE POC 121(H) 65 - 109 mg/dL INTERFACE SYSTEM 01/07/2006 4:51 PM CDT us José Fine MD POINT OF CARE TESTING Final Result Performing Organization Address [facility] Phone Number INTERFACE SYSTEM Refer to clinic/hospital department * (ABNORMAL) POC GLUCOSE (01/07/2006 11:16 AM CDT) GLUCOSE POC 119(H) 65 - 109 mg/dL INTERFACE SYSTEM 01/07/2006 11:1 6 AM CDT us José Fine MD POINT OF CARE TESTING Final Result Performing Organization Address [facility] de Phone Number INTERFACE SYSTEM Refer to clinic/hospital department * (ABNORMAL) POC GLUCOSE (01/07/2006 6:24 AM CDT) GLUCOSE POC 114(H) 65 - 109 mg/dL INTERFACE SYSTEM 01/07/2006 6:24 AM CDT us José Fine MD POINT OF CARE TESTING Final Result Performing Organization Address [facility] de Phone Number INTERFACE SYSTEM [...] ORDERABLES Final Resu lt Performing Organization Address [facility] de Phone Number INTERFACE SYSTEM [...] ORDERABLES Final Resu lt Performing Organization Address [facility] de Phone Number INTERFACE SYSTEM Refer to clinic/hospital department * PHOSPHORUS (01/07/2006 5:30 AM CDT) PHOSPHORUS 3.1 2.5 - 4.5 mg/dL INTERFACE SYSTEM 01/07/2006 5:30 AM CDT Terry Cole MD CHEMISTRY ORDERABLES Final Resul t Performing Organization Address [facility] Phone Number INTERFACE SYSTEM Refer to clinic/hospital department * MAGNESIUM LEVEL (01/07/2006 5:30 AM CDT) MAGNESIUM 2.3 1.5 - 2.5 mg/dL INTERFACE SYSTEM 01/07/2006 5:30 AM CDT Terry Cole MD CHEMISTRY ORDERABLES Final Resul t Performing Organization Address [facility] Phone Number [...] ORDERABLES Final Resul t Performing Organization Address City/[facility] de Phone Number INTERFACE SYSTEM Refer to clinic/hospital department * (ABNORMAL) POC GLUCOSE (01/07/2006 12:49 AM CDT) GLUCOSE POC 114(H) 65 - 109 mg/dL INTERFACE SYSTEM 01/07/2006 12:4 9 AM CDT us José Fine MD POINT OF CARE TESTING Final Result Performing Organization Address [facility] Co de Phone Number INTERFACE SYSTEM Refer to clinic/hospital department * (ABNORMAL) POC GLUCOSE (01/06/2006 5:40 PM CDT) COMMENT, GLU POC Notified RN INTERFACE SYSTEM GLUCOSE POC 128(H) 65 - 109 mg/dL INTERFACE SYSTEM 01/06/2006 5:40 PM CDT us José Fine MD POINT OF CARE TESTING Final Result Performing Organization Address [facility] Phone Number INTERFACE SYSTEM Refer to clinic/hospital department * (ABNORMAL) POC GLUCOSE (01/06/2006 11:43 AM CDT) COMMENT, GLU POC Notified RN INTERFACE SYSTEM GLUCOSE POC 120(H) 65 - 109 mg/dL INTERFACE SYSTEM 01/06/2006 11:4 3 AM CDT us José Fine MD POINT OF CARE TESTING Final Result Performing Organization Address [facility] de Phone Number INTERFACE SYSTEM Refer to clinic/hospital department * (ABNORMAL) POC GLUCOSE (01/06/2006 5:48 AM CDT) GLUCOSE POC 120(H) 65 - 109 mg/dL INTERFACE SYSTEM 01/06/2006 5:48 AM CDT us José Fine MD POINT OF CARE TESTING Final Result Performing Organization Address [facility] Co de Phone [...] ORDERABLES Final Resu lt Performing Organization Address [facility]/ZIP Co de Phone Number INTERFACE SYSTEM [...] 9.3 - 12.4 fL INTERFACE SYSTEM 01/06/2006 4:3 0 AM CDT Terry Cole MD HEMATOLOGY ORDERABLES [...] mg/dL INTERFACE SYSTEM 01/06/2006 4:30 AM CDT us Terry Cole MD CHEMISTRY ORDERABLES Final Resul t Performing Organization Address [facility] de Phone Number INTERFACE SYSTEM [...] ORDERABLES Final Resul t Performing Organization Address City/[facility]/ZIP Co de Phone Number INTERFACE SYSTEM Refer to clinic/hospital department * (ABNORMAL) POC GLUCOSE (01/06/2006 1:00 AM CDT) GLUCOSE POC 142(H) 65 - 109 mg/dL INTERFACE SYSTEM 01/06/2006 1:00 AM CDT José Fine MD POINT OF CARE TESTING Final Result Performing Organization Address [facility] Phone Number INTERFACE SYSTEM Refer to clinic/hospital department * (ABNORMAL) POC GLUCOSE (01/05/2006 5:49 PM CDT) GLUCOSE POC 137(H) 65 - 109 mg/dL INTERFACE SYSTEM 01/05/2006 5:49 PM CDT José Fine MD POINT OF CARE TESTING Final Result Performing Organization Address [facility] Phone Number INTERFACE SYSTEM Refer to clinic/hospital department * (ABNORMAL) POC GLUCOSE (01/05/2006 11:57 AM CDT) GLUCOSE POC 133(H) 65 - 109 mg/dL INTERFACE SYSTEM 01/05/2006 11:5 7 AM CDT José Fine MD POINT OF CARE TESTING Final Result Performing Organization Address [facility] Phone Number INTERFACE SYSTEM Refer to clinic/hospital department * (ABNORMAL) POC GLUCOSE (01/05/2006 5:59 AM CDT) GLUCOSE POC 142(H) 65 - 109 mg/dL INTERFACE SYSTEM 01/05/2006 5:59 AM CDT José Fine MD POINT OF CARE TESTING Final Result Performing Organization Address [facility] Phone Number [...] K/uL INTERFACE SYSTEM 01/05/2006 4:00 AM CDT [email or web address] [facility] [facility] HEMATOLOGY ORDERABLES Final Result Performing Organization Address [facility] Phone Number [...] fL INTERFACE SYSTEM 01/05/2006 4:00 AM CDT [employer] HEMATOLOGY ORDERABLES Final Result Performing Organization Address [facility] Phone Number [...] patients with mechanical heart valves or post LA. Pediatric (12 years and under): 1.5 - [...] for unfractionated heparin 01/05/2006 4:00 AM CDT [employer] [facility] HEMATOLOGY ORDERABLES Final Result Performing Organization Address [facility] Phone Number INTERFACE SYSTEM Refer to clinic/hospital department * PHOSPHORUS (01/05/2006 4:00 AM CDT) PHOSPHORUS 2.9 2.5 - 4.5 mg/dL INTERFACE SYSTEM 01/05/2006 4:00 AM CDT [employer] [facility] CHEMISTRY ORDERABLES Final R esult Performing Organization Address [facility] Phone Number INTERFACE SYSTEM Refer to clinic/hospital department * MAGNESIUM LEVEL (01/05/2006 4:00 AM CDT) MAGNESIUM 2.2 1.5 - 2.5 mg/dL INTERFACE SYSTEM 01/05/2006 4:00 AM CDT [employer] CHEMISTRY ORDERABLES Final R esult Performing Organization Address [facility] Phone Number [...] ORDERABLES Final R esult Performing Organization Address [facility] Phone Number INTERFACE SYSTEM Refer to clinic/hospital department * (ABNORMAL) POC GLUCOSE (01/04/2006 11:41 PM CDT) GLUCOSE POC 140(H) 65 - 109 mg/dL INTERFACE SYSTEM 01/04/2006 11:4 1 PM CDT us José Fine MD POINT OF CARE TESTING Final Result Performing Organization Address [facility] Phone Number INTERFACE SYSTEM Refer to clinic/hospital department * (ABNORMAL) POC GLUCOSE (01/04/2006 5:43 PM CDT) GLUCOSE POC 156(H) 65 - 109 mg/dL INTERFACE SYSTEM 01/04/2006 5:43 PM CDT us José Fine MD POINT OF CARE TESTING Final Result Performing Organization Address [facility] Phone Number INTERFACE SYSTEM Refer to clinic/hospital department * (ABNORMAL) POC GLUCOSE (01/04/2006 11:37 AM CDT) GLUCOSE POC 175(H) 65 - 109 mg/dL INTERFACE SYSTEM 01/04/2006 11:3 7 AM CDT us José Fine MD POINT OF CARE TESTING Final Result Performing Organization Address [facility] Phone Number INTERFACE SYSTEM Refer to clinic/hospital department * (ABNORMAL) POC GLUCOSE (01/04/2006 6:11 AM CDT) GLUCOSE POC 183(H) 65 - 109 mg/dL INTERFACE SYSTEM 01/04/2006 6:11 AM CDT us José Fine MD POINT OF CARE TESTING Final Result Performing Organization Address [facility] Phone Number INTERFACE SYSTEM Refer to clinic/hospital [...] ORDERABLES F inal Result Performing Organization Address [facility] Phone Number [...] patients with mechanical heart valves or post [place]. Pediatric (12 years and under): 1.5 - [...] ORDERABLES F inal Result Performing Organization Address [facility] Phone Number INTERFACE SYSTEM Refer to clinic/hospital department * PHOSPHORUS (01/04/2006 4:20 AM CDT) PHOSPHORUS 2.5 2.5 - 4.5 mg/dL INTERFACE SYSTEM 01/04/2006 4:20 AM CDT Rayray Wilcox MD CHEMISTRY ORDERABLES Fi nal Result Performing Organization Address [facility] Phone Number INTERFACE SYSTEM Refer to clinic/hospital department * MAGNESIUM LEVEL (01/04/2006 4:20 AM CDT) MAGNESIUM 2.0 1.5 - 2.5 mg/dL INTERFACE SYSTEM 01/04/2006 4:20 AM CDT us Rayray Wilcox MD CHEMISTRY ORDERABLES Fi nal Result Performing Organization Address [facility] Phone Number INTERFACE SYSTEM Refer to clinic/hospital [...] ORDERABLES Final Re sult Performing Organization Address [facility]/ZIP Co de Phone Number INTERFACE SYSTEM Refer to clinic/hospital department * (ABNORMAL) POC GLUCOSE (01/04/2006 12:25 AM CDT) GLUCOSE POC 188(H) 65 - 109 mg/dL INTERFACE SYSTEM 01/04/2006 12:2 5 AM CDT José Fine MD POINT OF CARE TESTING Final Result Performing Organization Address [facility] Phone Number INTERFACE SYSTEM Refer to clinic/hospital department * (ABNORMAL) POC GLUCOSE (01/03/2006 5:25 PM CDT) GLUCOSE POC 177(H) 65 - 109 mg/dL INTERFACE SYSTEM 01/03/2006 5:25 PM CDT José Fine MD POINT OF CARE TESTING Final Result Performing Organization Address [facility] Phone Number INTERFACE SYSTEM Refer to clinic/hospital department * (ABNORMAL) POC GLUCOSE (01/03/2006 11:34 AM CDT) GLUCOSE POC 148(H) 65 - 109 mg/dL INTERFACE SYSTEM 01/03/2006 11:3 4 AM CDT José Fine MD POINT OF CARE TESTING Final Result Performing Organization Address [facility] Phone Number [...] ORDERABLES F inal Result Performing Organization Address [facility] Phone Number [...] ORDERABLES F inal Result Performing Organization Address [facility] Phone Number [...] ORDERABLES F inal Result Performing Organization Address [facility] Phone Number [...] patients with mechanical heart valves or post [place]. Pediatric (12 years and under): 1.5 - [...] ORDERABLES F inal Result Performing Organization Address [facility] Number INTERFACE SYSTEM Refer to clinic/hospital department * PHOSPHORUS (01/03/2006 10:46 AM CDT) PHOSPHORUS 3.3 2.5 - 4.5 mg/dL INTERFACE SYSTEM 01/03/2006 10:4 6 AM CDT Rayray Wilcox MD CHEMISTRY ORDERABLES Fi nal Result Performing Organization Address [facility] Phone Number INTERFACE SYSTEM Refer to clinic/hospital department * MAGNESIUM LEVEL (01/03/2006 10:46 AM CDT) MAGNESIUM 1.8 1.5 - 2.5 mg/dL INTERFACE SYSTEM 01/03/2006 10:4 6 AM CDT Rayray Wilcox MD CHEMISTRY ORDERABLES Fi nal Result Performing Organization Address [facility] Phone Number [...] CHEMISTRY ORDERABLES nal Result Performing Organization Address [facility] Phone Number [...] patients with mechanical heart valves or post [place]. Pediatric (12 years and under): 1.5 - [...] drugs of abuse are available on the [facility] [employer] at: [email or web address]/sjmmclab.nsf Select: Drugs of Abuse ? [facility] To inquire about any potential [...] URINE ORDERABLES Final Result Performing Organization Address [facility] Co de Phone [...] Fine MD CHEMISTRY ORDERABLES Final R esult Performing Organization Address [facility]/ZIP Co de Phone Number INTERFACE SYSTEM [...]
--- OUTSIDE RECORDS SUMMARY | 2025-02-03 17:00 | XMS_ITS | Encounter Summary ---
Author Organization [facility] Address [address] [place] [address] Care Team Providers Care Parts Cataloger Name Role Phone Unavailable Primary Care Provider Unavailabl e Encounter Details Date Type Department Care Team (Late st Contact Info) Description 01/11/2006 Outpatient Historical [facility] Trauma and General Surgery [address] [id number] [place] [address] [place] [address] Social History Tobacco Use Types Packs/Day Years Used Date Smoking Tobacco: Never Assessed Sex and Gender Information Value Date Recorded Sex Assigned at Not on file 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
--- OUTSIDE RECORDS SUMMARY | 2025-02-03 17:00 | XMS_ITS | Encounter Summary ---
Author Organization [facility] Address [address] [place] [address] Care Team Providers Care Loom Fixer Supervisor Name Role Phone Unavailable Primary Care Provider Unavailabl e Encounter Details Date Type Department Care Team (Late st Contact Info) Description 01/10/2006 Outpatient Historical [facility] Trauma and General Surgery [address] [phone] [place] [address] [place] [address] Social History Tobacco Use Types Packs/Day Years Used Date Smoking Tobacco: Never Assessed Sex and Gender Information Value Date Recorded Sex Assigned at Not on file 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
--- OUTSIDE RECORDS SUMMARY | 2025-02-03 17:00 | XMS_ITS | Encounter Summary ---
Author Organization [facility] Address [address] [place] [address] Care Team Providers Care Technical Service Specialist Name Role Phone Unavailable Primary Care Provider Unavailabl e Encounter Details Date Type Department Care Team (Late st Contact Info) Description 01/12/2006 Outpatient Historical [facility] Trauma and General Surgery [address] [phone] [place] [address] [place] [address] Social History Tobacco Use Types Packs/Day Years Used Date Smoking Tobacco: Never Assessed Sex and Gender Information Value Date Recorded Sex Assigned at Not on file Legal 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
--- OUTSIDE RECORDS SUMMARY | 2025-02-03 17:00 | XMS_ITS | Encounter Summary ---
Author Organization [facility] Address [address] [place] [address] Care Team Providers Care Car Filler Name Role Phone Unavailable Primary Care Provider Unavailabl e Encounter Details Date Type Department Care Team (Late st Contact Info) Description 01/06/[address] [facility] Trauma and General Surgery [address] [facility] [place] [address] Jayden James MD 

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
[2025-02-03 17:55] VITALS: BP 163/71; PULSE 68; RESP 15; O2SAT 100
[2025-02-03 18:14] LABS: Add Urine Microscopic? YES; Appearance Urine Clear (Clear); Glucose Urine UA Negative (Negative); Leukocyte Esterase Ur 3+ LEU/UL (Negative); Need Manual Microscopic Reviewed; Nitrate Urine Positive (Negative); Non Pathogenic Casts 0-2; Specific Grav Ur 1.021 (1.001-1.035)
[2025-02-03] MEDS: NITROFURANTOIN MONOHYD MACROCR 100 MG CAP PO (18:37)
--- NOTE | 2025-02-03 18:49 | PC.NURSE ---
this RN and EDP Dr. Meredith at bedside. EDP replaced pt suprapuic catheter at 1700. pt tolerated well with no complications
--- NOTE | 2025-02-03 18:50 | PC.NURSE ---
this RN called report to [facility] at 1845 and gave a full report, when this RN asked for RNs name receiving report she was hung up on. this RN called the facility back with no answer.
[2025-02-03 18:54] VITALS: BP 156/74; PULSE 70; RESP 15; O2SAT 99
--- NOTE | 2025-02-03 19:38 | PC.NURSE ---
Report to EMS Care relinquished, going back to [facility]. All questions answered. Pt awake and alert at exit
== END 2025-02-03 19:39 ==
PROVIDERS: Emergency Provider Emergency Medicine
DX: N39.0 Urinary tract infection, site not specified (principal); G82.50 Quadriplegia, unspecified; S14.105S Unspecified injury at C5 level of cervical spinal cord, sequela; I69.998 Other sequelae following unspecified cerebrovascular disease; H53.8 Other visual disturbances; I10 Essential (primary) hypertension; K59.2 Neurogenic bowel, not elsewhere classified; N31.9 Neuromuscular dysfunction of bladder, unspecified; G93.41 Metabolic encephalopathy; K21.9 Gastro-esophageal reflux disease without esophagitis; F32.A Depression, unspecified; Z86.2 Personal history of diseases of the blood and blood-forming organs and certain disorders involving the immune mechanism; Z86.16 Personal history of COVID-19; Z87.891 Personal history of nicotine dependence; Z86.718 Personal history of other venous thrombosis and embolism; Z79.899 Other long term (current) drug therapy; V29.99XS Rider (driver) (passenger) of other motorcycle injured in unspecified traffic accident, sequela
CPT/HCPCS: 51705; 81001; 87086; 99283; A9270

== ENCOUNTER 2025-02-15 16:11 | Emergency (ER) | payer OTHER, MEDICARE, MEDICAID, SELFPAY ==
[2025-02-15 16:14] VITALS: BP 140/64; PULSE 66; RESP 18; TEMP 36.4; O2SAT 98
--- OUTSIDE RECORDS SUMMARY | 2025-02-15 16:15 | XMS_ITS | Encounter Summary ---
Author Organization [facility] Address [address] [place] [address] Care Team Providers Care Navigating Officer Name Role Phone Unavailable Primary Care Provider Unavailabl e Encounter Details Date Type Department Care Team (Late st Contact Info) Description 01/09/2006 Outpatient Historical [facility] Trauma and General Surgery [address] [id number] [place] [address] [place] [address] Social History Tobacco Use Types Packs/Day Years Used Date Smoking Tobacco: Never Assessed Sex and Gender Information Value Date Recorded Sex Assigned at Not on file Legal Sex Male 3:46 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
--- OUTSIDE RECORDS SUMMARY | 2025-02-15 16:15 | XMS_ITS | Encounter Summary ---
Author Organization [facility] Address [address] [place] [address] Care Team Providers Care Roll Trucker Name Role Phone Unavailable Primary Care Provider Unavailabl e Encounter Details Date Type Department Care Team (Late st Contact Info) Description 01/04/2006 Outpatient Historical [facility] Trauma and General Surgery [address] [facility] [place] [address] Jayden James MD [address] [facility] [place] [address] Social History Tobacco Use Types Packs/Day Years Used Date Smoking Tobacco: Never Assessed Sex and Gender Information Value Date Recorded Sex Assigned at Not on file Legal Sex Male 3:46 AM [employer]ER [employer] Gender Identity Not on file Sexual Orientation Not on file documented as of this encounter Plan of Treatment Not on file documented as of this encounter Visit Diagnoses Not on filedocumented in this encounter
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
--- OUTSIDE RECORDS SUMMARY | 2025-02-15 16:15 | XMS_ITS | Encounter Summary ---
Author Organization [employer] Address 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 Gender Identity Not on file Sexual [...] ORDERABLES Final Res ult Performing Organization Address [facility] Phone Number INTERFACE SYSTEM Refer to [...] ORDERABLES Final Res ult Performing Organization Address [facility] Phone Number INTERFACE SYSTEM Refer to [...] ORDERABLES Final Resu lt Performing Organization Address [facility] Phone Number INTERFACE SYSTEM Refer to clinic/hospital department * (ABNORMAL) POC GLUCOSE (01/08/2006 9:26 PM CDT) GLUCOSE POC 133(H) 65 - 109 mg/dL INTERFACE SYSTEM 01/08/2006 9:26 PM CDT José Fine MD POINT OF CARE TESTING Final Result Performing Organization Address [facility] Phone Number INTERFACE SYSTEM Refer to clinic/hospital department * (ABNORMAL) POC GLUCOSE (01/08/2006 5:25 PM CDT) GLUCOSE POC 125(H) 65 - 109 mg/dL INTERFACE SYSTEM 01/08/2006 5:25 PM CDT José Fine MD POINT OF CARE TESTING Final Result Performing Organization Address [facility] Phone Number INTERFACE SYSTEM Refer to clinic/hospital department * (ABNORMAL) POC GLUCOSE (01/08/2006 11:50 AM CDT) GLUCOSE POC 122(H) 65 - 109 mg/dL INTERFACE SYSTEM 01/08/2006 11:5 0 AM CDT us José Fine MD POINT OF CARE TESTING Final Result Performing Organization Address [facility] Phone Number INTERFACE SYSTEM Refer to clinic/hospital department * (ABNORMAL) POC GLUCOSE (01/08/2006 5:35 AM CDT) GLUCOSE POC 128(H) 65 - 109 mg/dL INTERFACE SYSTEM 01/08/2006 5:35 AM CDT us José Fine MD POINT OF CARE TESTING Final Result Performing Organization Address [facility] Phone Number INTERFACE SYSTEM Refer to clinic/hospital department * (ABNORMAL) POC GLUCOSE (01/07/2006 8:48 PM CDT) GLUCOSE POC 124(H) 65 - 109 mg/dL INTERFACE SYSTEM 01/07/2006 8:48 PM CDT us José Fine MD POINT OF CARE TESTING Final Result Performing Organization Address [facility] Phone Number INTERFACE SYSTEM Refer to clinic/hospital department * (ABNORMAL) POC GLUCOSE (01/07/2006 4:51 PM CDT) GLUCOSE POC 121(H) 65 - 109 mg/dL INTERFACE SYSTEM 01/07/2006 4:51 PM CDT us José Fine MD POINT OF CARE TESTING Final Result Performing Organization Address [facility] Phone Number INTERFACE SYSTEM Refer to clinic/hospital department * (ABNORMAL) POC GLUCOSE (01/07/2006 11:16 AM CDT) GLUCOSE POC 119(H) 65 - 109 mg/dL INTERFACE SYSTEM 01/07/2006 11:1 6 AM CDT us José Fine MD POINT OF CARE TESTING Final Result Performing Organization Address [facility] de Phone Number INTERFACE SYSTEM Refer to clinic/hospital department * (ABNORMAL) POC GLUCOSE (01/07/2006 6:24 AM CDT) GLUCOSE POC 114(H) 65 - 109 mg/dL INTERFACE SYSTEM 01/07/2006 6:24 AM CDT us José Fine MD POINT OF CARE TESTING Final Result Performing Organization Address [facility] de Phone Number INTERFACE [...] ORDERABLES Final Resu lt Performing Organization Address [facility] de Phone Number INTERFACE [...] ORDERABLES Final Resu lt Performing Organization Address [facility] de Phone Number INTERFACE SYSTEM Refer to clinic/hospital department * PHOSPHORUS (01/07/2006 5:30 AM CDT) PHOSPHORUS 3.1 2.5 - 4.5 mg/dL INTERFACE SYSTEM 01/07/2006 5:30 AM CDT Terry Cole MD CHEMISTRY ORDERABLES Final Resul t Performing Organization Address [facility] Phone Number INTERFACE SYSTEM Refer to clinic/hospital department * MAGNESIUM LEVEL (01/07/2006 5:30 AM CDT) MAGNESIUM 2.3 1.5 - 2.5 mg/dL INTERFACE SYSTEM 01/07/2006 5:30 AM CDT Terry Cole MD CHEMISTRY ORDERABLES Final Resul t Performing Organization Address [facility] Phone Number INTERFACE SYSTEM Refer to [...] ORDERABLES Final Resul t Performing Organization Address [facility] de Phone Number INTERFACE SYSTEM Refer to clinic/hospital department * (ABNORMAL) POC GLUCOSE (01/07/2006 12:49 AM CDT) GLUCOSE POC 114(H) 65 - 109 mg/dL INTERFACE SYSTEM 01/07/2006 12:4 9 AM CDT us José Fine MD POINT OF CARE TESTING Final Result Performing Organization Address [facility] Co de Phone Number INTERFACE SYSTEM Refer to clinic/hospital department * (ABNORMAL) POC GLUCOSE (01/06/2006 5:40 PM CDT) COMMENT, GLU POC Notified RN INTERFACE SYSTEM GLUCOSE POC 128(H) 65 - 109 mg/dL INTERFACE SYSTEM 01/06/2006 5:40 PM CDT us José Fine MD POINT OF CARE TESTING Final Result Performing Organization Address [facility] Phone Number INTERFACE SYSTEM Refer to clinic/hospital department * (ABNORMAL) POC GLUCOSE (01/06/2006 11:43 AM CDT) COMMENT, GLU POC Notified RN INTERFACE SYSTEM GLUCOSE POC 120(H) 65 - 109 mg/dL INTERFACE SYSTEM 01/06/2006 11:4 3 AM CDT us José Fine MD POINT OF CARE TESTING Final Result Performing Organization Address [facility] de Phone Number INTERFACE SYSTEM Refer to clinic/hospital department * (ABNORMAL) POC GLUCOSE (01/06/2006 5:48 AM CDT) GLUCOSE POC 120(H) 65 - 109 mg/dL INTERFACE SYSTEM 01/06/2006 5:48 AM CDT us José Fine MD POINT OF CARE TESTING Final Result Performing Organization Address [facility] Co de Phone Number INTERFACE [...] ORDERABLES Final Resu lt Performing Organization Address [facility]/ZIP Co de Phone Number INTERFACE SYSTEM [...] ORDERABLES Final Resul t Performing Organization Address [facility] de Phone Number INTERFACE [...] ORDERABLES Final Resul t Performing Organization Address [facility]/ZIP Co de Phone Number INTERFACE SYSTEM Refer to clinic/hospital department * (ABNORMAL) POC GLUCOSE (01/06/2006 1:00 AM CDT) GLUCOSE POC 142(H) 65 - 109 mg/dL INTERFACE SYSTEM 01/06/2006 1:00 AM CDT José Fine MD POINT OF CARE TESTING Final Result Performing Organization Address [facility] Phone Number INTERFACE SYSTEM Refer to clinic/hospital department * (ABNORMAL) POC GLUCOSE (01/05/2006 5:49 PM CDT) GLUCOSE POC 137(H) 65 - 109 mg/dL INTERFACE SYSTEM 01/05/2006 5:49 PM CDT José Fine MD POINT OF CARE TESTING Final Result Performing Organization Address [facility] Phone Number INTERFACE SYSTEM Refer to clinic/hospital department * (ABNORMAL) POC GLUCOSE (01/05/2006 11:57 AM CDT) GLUCOSE POC 133(H) 65 - 109 mg/dL INTERFACE SYSTEM 01/05/2006 11:5 7 AM CDT José Fine MD POINT OF CARE TESTING Final Result Performing Organization Address [facility] Phone Number INTERFACE SYSTEM Refer to clinic/hospital department * (ABNORMAL) POC GLUCOSE (01/05/2006 5:59 AM CDT) GLUCOSE POC 142(H) 65 - 109 mg/dL INTERFACE SYSTEM 01/05/2006 5:59 AM CDT José Fine MD POINT OF CARE TESTING Final Result Performing Organization Address [facility] Phone Number INTERFACE SYSTEM Refer to [...] INTERFACE SYSTEM 01/05/2006 4:00 AM CDT [facility] [employer] HEMATOLOGY ORDERABLES Final Result Performing Organization Address [facility] Phone Number INTERFACE SYSTEM Refer to [...] fL INTERFACE SYSTEM 01/05/2006 4:00 AM CDT [employer] HEMATOLOGY ORDERABLES Final Result Performing Organization Address [facility] Phone Number INTERFACE SYSTEM Refer to [...] patients with mechanical heart valves or post OK. Pediatric (12 years and under): 1.5 - [...] for unfractionated heparin 01/05/2006 4:00 AM CDT [employer] HEMATOLOGY ORDERABLES Final Result Performing Organization Address [facility] Phone Number INTERFACE SYSTEM Refer to clinic/hospital department * PHOSPHORUS (01/05/2006 4:00 AM CDT) PHOSPHORUS 2.9 2.5 - 4.5 mg/dL INTERFACE SYSTEM 01/05/2006 4:00 AM CDT Luis Eduardo Agitarbrandt CHEMISTRY ORDERABLES Final R esult Performing Organization Address [facility] Phone Number INTERFACE SYSTEM Refer to clinic/hospital department * MAGNESIUM LEVEL (01/05/2006 4:00 AM CDT) MAGNESIUM 2.2 1.5 - 2.5 mg/dL INTERFACE SYSTEM 01/05/2006 4:00 AM CDT [employer] CHEMISTRY ORDERABLES Final R esult Performing Organization Address [facility] Phone Number INTERFACE SYSTEM Refer to [...] ORDERABLES Final R esult Performing Organization Address [facility] Phone Number INTERFACE SYSTEM Refer to clinic/hospital department * (ABNORMAL) POC GLUCOSE (01/04/2006 11:41 PM CDT) GLUCOSE POC 140(H) 65 - 109 mg/dL INTERFACE SYSTEM 01/04/2006 11:4 1 PM CDT us José Fine MD POINT OF CARE TESTING Final Result Performing Organization Address [facility] Phone Number INTERFACE SYSTEM Refer to clinic/hospital department * (ABNORMAL) POC GLUCOSE (01/04/2006 5:43 PM CDT) GLUCOSE POC 156(H) 65 - 109 mg/dL INTERFACE SYSTEM 01/04/2006 5:43 PM CDT us José Fine MD POINT OF CARE TESTING Final Result Performing Organization Address [facility] Phone Number INTERFACE SYSTEM Refer to clinic/hospital department * (ABNORMAL) POC GLUCOSE (01/04/2006 11:37 AM CDT) GLUCOSE POC 175(H) 65 - 109 mg/dL INTERFACE SYSTEM 01/04/2006 11:3 7 AM CDT us José Fine MD POINT OF CARE TESTING Final Result Performing Organization Address [facility] Phone Number INTERFACE SYSTEM Refer to clinic/hospital department * (ABNORMAL) POC GLUCOSE (01/04/2006 6:11 AM CDT) GLUCOSE POC 183(H) 65 - 109 mg/dL INTERFACE SYSTEM 01/04/2006 6:11 AM CDT José Fine MD POINT OF CARE TESTING Final Result Performing Organization Address [facility] Phone Number INTERFACE SYSTEM Refer to [...] ORDERABLES F inal Result Performing Organization Address [facility] Phone Number INTERFACE SYSTEM Refer to [...] patients with mechanical heart valves or post [place]. Pediatric (12 years and under): 1.5 - [...] ORDERABLES F inal Result Performing Organization Address [facility] Phone Number INTERFACE SYSTEM Refer to clinic/hospital department * PHOSPHORUS (01/04/2006 4:20 AM CDT) PHOSPHORUS 2.5 2.5 - 4.5 mg/dL INTERFACE SYSTEM 01/04/2006 4:20 AM CDT us Rayray Wilcox MD CHEMISTRY ORDERABLES Fi nal Result Performing Organization Address [facility] Phone Number INTERFACE SYSTEM Refer to clinic/hospital department * MAGNESIUM LEVEL (01/04/2006 4:20 AM CDT) MAGNESIUM 2.0 1.5 - 2.5 mg/dL INTERFACE SYSTEM 01/04/2006 4:20 AM CDT Rayray Wilcox MD CHEMISTRY ORDERABLES Fi nal Result Performing Organization Address [facility] Phone Number INTERFACE SYSTEM Refer [...] ORDERABLES Final Re sult Performing Organization Address [facility]/ZIP Co de Phone Number INTERFACE SYSTEM Refer to clinic/hospital department * (ABNORMAL) POC GLUCOSE (01/04/2006 12:25 AM CDT) GLUCOSE POC 188(H) 65 - 109 mg/dL INTERFACE SYSTEM 01/04/2006 12:2 5 AM CDT José Fine MD POINT OF CARE TESTING Final Result Performing Organization Address [facility] de Phone Number INTERFACE SYSTEM Refer to clinic/hospital department * (ABNORMAL) POC GLUCOSE (01/03/2006 5:25 PM CDT) GLUCOSE POC 177(H) 65 - 109 mg/dL INTERFACE SYSTEM 01/03/2006 5:25 PM CDT José Fine MD POINT OF CARE TESTING Final Result Performing Organization Address [facility] de Phone Number INTERFACE SYSTEM Refer to clinic/hospital department * (ABNORMAL) POC GLUCOSE (01/03/2006 11:34 AM CDT) GLUCOSE POC 148(H) 65 - 109 mg/dL INTERFACE SYSTEM 01/03/2006 11:3 4 AM CDT José Fine MD POINT OF CARE TESTING Final Result Performing Organization Address [facility] de Phone Number INTERFACE [...] ORDERABLES F inal Result Performing Organization Address [facility] Phone Number INTERFACE SYSTEM Refer to [...] ORDERABLES F inal Result Performing Organization Address [facility] Phone Number INTERFACE SYSTEM Refer to [...] ORDERABLES F inal Result Performing Organization Address [facility] Phone Number INTERFACE SYSTEM Refer to [...] patients with mechanical heart valves or post [place]. Pediatric (12 years and under): 1.5 - [...] ORDERABLES F inal Result Performing Organization Address [facility] Number INTERFACE SYSTEM Refer to clinic/hospital department * PHOSPHORUS (01/03/2006 10:46 AM CDT) PHOSPHORUS 3.3 2.5 - 4.5 mg/dL INTERFACE SYSTEM 01/03/2006 10:4 6 AM CDT Rayray Wilcox MD CHEMISTRY ORDERABLES Fi nal Result Performing Organization Address [facility] Phone Number INTERFACE SYSTEM Refer to clinic/hospital department * MAGNESIUM LEVEL (01/03/2006 10:46 AM CDT) MAGNESIUM 1.8 1.5 - 2.5 mg/dL INTERFACE SYSTEM 01/03/2006 10:4 6 AM CDT Rayray Wilcox MD CHEMISTRY ORDERABLES Fi nal Result Performing Organization Address [facility] Phone Number INTERFACE SYSTEM Refer to [...] CHEMISTRY ORDERABLES nal Result Performing Organization Address [facility] Phone Number INTERFACE SYSTEM Refer to [...] patients with mechanical heart valves or post [place]. Pediatric (12 years and under): 1.5 - [...] are available on the [facility] Intranet at: [email or web address] Select: Drugs of Abuse ? [facility] To inquire about any potential [...] URINE ORDERABLES Final Result Performing Organization Address City/[facility]/ZIP Co de Phone Number INTERFACE SYSTEM [...]
--- OUTSIDE RECORDS SUMMARY | 2025-02-15 16:15 | XMS_ITS | Encounter Summary ---
Author Organization [facility] Address [address] [place] [address] Care Team Providers Care Fly Frame Tender Name Role Phone Unavailable Primary Care Provider Unavailabl e Encounter Details Date Type Department Care Team (Late st Contact Info) Description 01/06/2006 Outpatient Historical [facility] Trauma and General Surgery [address] [facility] [address] Jayden James MD [address] [facility] [place] [address] Social History Tobacco Use Types Packs/Day Years Used Date Smoking Tobacco: Never Assessed Sex and Gender Information Value Date Recorded Sex Assigned at Not on file 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
--- OUTSIDE RECORDS SUMMARY | 2025-02-15 16:15 | XMS_ITS | Encounter Summary ---
Author Organization [facility] Address [address] [place] [address] Care Team Providers Care Reel And Rewinder Operator Name Role Phone Unavailable Primary Care Provider Unavailabl e Encounter Details Date Type Department Care Team (Late st Contact Info) Description 03/14/2006 Outpatient Historical [facility] [address] [place] [address] Devan Agrawal MD [address] [facility] 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
--- OUTSIDE RECORDS SUMMARY | 2025-02-15 16:15 | XMS_ITS | Encounter Summary ---
Author Organization [facility] Address [address] [place] [address] Care Team Providers Care Head Of Acquisitions Name Role Phone Unavailable Primary Care Provider Unavailabl e Encounter Details Date Type Department Care Team (Late st Contact Info) Description 01/08/2006 Outpatient Historical [facility] Trauma and General Surgery [address] [facility] [place] [address] Jayden James MD [address] [facility] [place] [address] Social History Tobacco Use Types Packs/Day Years Used Date Smoking Tobacco: Never Assessed Sex and Gender Information Value Date Recorded Sex Assigned at Not on file Legal 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
--- OUTSIDE RECORDS SUMMARY | 2025-02-15 16:15 | XMS_ITS | Encounter Summary ---
Author Organization [facility] Address [address] [place] [address] Care Team Providers Care Cooker Cleaner Name Role Phone Unavailable Primary Care Provider Unavailabl e Encounter Details Date Type Department Care Team (Late st Contact Info) Description 01/10/2006 Outpatient Historical [facility] Trauma and General Surgery [address] [address] [place] [address] [place] [address] Social History Tobacco Use Types Packs/Day Years Used Date Smoking Tobacco: Never Assessed Sex and Gender Information Value Date Recorded Sex Assigned at Not on file 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
--- OUTSIDE RECORDS SUMMARY | 2025-02-15 16:15 | XMS_ITS | Encounter Summary ---
Author Organization [facility] Address 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
--- OUTSIDE RECORDS SUMMARY | 2025-02-15 16:15 | XMS_ITS | Encounter Summary ---
Author Organization [employer] Address [address] [place] [address] Care Team Providers Care Steel Fitter Name Role Phone Unavailable Primary Care Provider Unavailabl e Encounter Details Date Type Department Care Team (Late st Contact Info) Description 01/13/2006 Outpatient Historical [facility] [address] 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
--- OUTSIDE RECORDS SUMMARY | 2025-02-15 16:15 | XMS_ITS | Encounter Summary ---
Author Organization [facility] Address 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
--- OUTSIDE RECORDS SUMMARY | 2025-02-15 16:15 | XMS_ITS | Encounter Summary ---
Author Organization [employer] Address [address] [place] [address] Care Team Providers Care Metal Fabricator Welder Name Role Phone Unavailable Primary Care Provider Unavailabl e Encounter Details Date Type Department Care Team (Latest Contact Info) Description 03/15/2006 Inpatient Historical HIS PATIENT IN A BED Yenny Hauser MD NO ADDRESS ON FILE Devan Agrawal MD [address] [facility] 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 Gender Identity Not on file Sexual Orientation [...] ORDERABLES Final R esult Performing Organization Address City/[facility] Phone Number INTERFACE SYSTEM Refer to [...] ORDERABLES Final R esult Performing Organization Address City/[facility] Phone Number INTERFACE SYSTEM Refer to clinic/hospital department * MAGNESIUM LEVEL (03/19/2006 4:38 AM CDT) MAGNESIUM 1.7 1.5 - 2.5 mg/dL INTERFACE SYSTEM 03/19/2006 4:38 AM CDT Yenny Hauser MD CHEMISTRY ORDERABLES Final Re sult Performing Organization Address City/[facility] Co de Phone Number [...] ORDERABLES Final Re sult Performing Organization Address City/[facility] Co de Phone Number INTERFACE SYSTEM Refer to clinic/hospital department * VANCOMYCIN LEVEL TROUGH (03/18/2006 11:30 AM CDT) Pathologist [facility] VANCOMYCIN, TROUGH 11.5 5.0 - 15.0 ug/mL INTERFACE SYSTEM Comment: Vancomycin Trough Toxic Level= >15.0 ug/mL 03/18/2006 11:3 0 AM CDT Yenny Hauser MD CHEMISTRY ORDERABLES Final Re sult Performing Organization Address [facility] Co de Phone Number INTERFACE SYSTEM Refer to clinic/hospital department * (ABNORMAL) CBC WITH DIFFERENTIAL (03/18/2006 9:08 AM CDT) Pathologist [facility] NEUTROPHILS 76(H) 45 - 70 % INTERFAC [...] ORDERABLES Final Res ult Performing Organization Address City/[facility] de Phone Number INTERFACE SYSTEM [...] ORDERABLES Final Resu lt Performing Organization Address [facility] Phone Number INTERFACE SYSTEM Refer to [...] HEMATOLOGY ORDERABLES Final Result Performing Organization Address [facility] Phone Number INTERFACE SYSTEM Refer to [...] HEMATOLOGY ORDERABLES Final Result Performing Organization Address [facility] Phone Number INTERFACE SYSTEM Refer to clinic/hospital department * (ABNORMAL) C-REACTIVE PROTEIN (03/17/2006 4:45 AM CDT) CRP 2.4(H) 0.0 - 0.8 mg/dL INTERFACE SYSTEM 03/17/2006 4:45 AM CDT Historical Provider CHEMISTRY ORDERABLES Final R esult Performing Organization Address [facility] Phone Number INTERFACE SYSTEM Refer to [...] ORDERABLES Final R esult Performing Organization Address City/[facility] Phone Number INTERFACE SYSTEM Refer to clinic/hospital department * (ABNORMAL) ACETONE QUALITATIVE (03/16/2006 6:30 PM CDT) ACETONE QUAL 2+ (30 mg/dL)(A) Neg (<10 mg/dL) INTERFACE SYSTEM 03/16/2006 6:30 PM CDT us Historical Provider CHEMISTRY ORDERABLES Final R esult Performing Organization Address [facility] Phone Number INTERFACE SYSTEM Refer to clinic/hospital department * LACTIC ACID (03/16/2006 6:30 PM CDT) LACTIC ACID 1.0 0.5 - 2.2 mmol/L INTERFACE SYSTEM 03/16/2006 6:30 PM CDT us Historical Provider CHEMISTRY ORDERABLES Final R esult Performing Organization Address [facility] Phone Number INTERFACE SYSTEM Refer to [...] ORDERABLES Final Resu lt Performing Organization Address [facility] Phone Number INTERFACE SYSTEM Refer to [...] patients with mechanical heart valves or post MD. Pediatric (12 years and under): 1.5 - [...] HEMATOLOGY ORDERABLES Final Result Performing Organization Address City/[facility] Phone Number INTERFACE SYSTEM Refer to [...] ORDERABLES Final R esult Performing Organization Address City/[facility] de Phone Number INTERFACE SYSTEM [...] ORDERABLES Final Res ult Performing Organization Address [facility] Phone Number INTERFACE SYSTEM Refer to [...] ORDERABLES Final Res ult Performing Organization Address [facility] de Phone Number INTERFACE SYSTEM [...]
--- OUTSIDE RECORDS SUMMARY | 2025-02-15 16:15 | XMS_ITS | Encounter Summary ---
Author Organization [employer] Address 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 Phone Number INTERFACE SYSTEM Refer [...] ORDERABLES Final Re sult Performing Organization Address [facility] Phone Number INTERFACE SYSTEM Refer [...] fL INTERFACE SYSTEM 03/14/2006 4:37 AM CDT [facility] ORDER[facility] Final Re sult Performing Organization Address [facility] Phone Number INTERFACE SYSTEM Refer to clinic/hospital department * MAGNESIUM LEVEL (03/14/2006 4:37 AM CDT) MAGNESIUM 2.0 1.5 - 2.5 mg/dL INTERFACE SYSTEM 03/14/2006 4:37 AM CDT Rita Esqueda MD CHEMISTRY ORDERABLES Final Res ult Performing Organization Address [facility] Phone Number INTERFACE SYSTEM Refer [...] mmol/L INTERFACE SYSTEM 03/14/2006 4:37 AM CDT [facility] ORDER[facility]LES Final Res ult Performing Organization Address [facility] Phone Number INTERFACE SYSTEM Refer to clinic/hospital department * (ABNORMAL) C-REACTIVE PROTEIN (03/14/2006 4:37 AM CDT) CRP 4.1(H) 0.0 - 0.8 mg/dL INTERFACE SYSTEM 03/14/2006 4:37 AM CDT [facility] CHEMISTRY ORDERABLES Final Res ult Performing Organization Address [facility] Phone Number INTERFACE SYSTEM Refer to clinic/hospital department * VANCOMYCIN LEVEL TROUGH (03/13/2006 1:02 PM CDT) VANCOMYCIN, TROUGH 8.7 5.0 - 15.0 ug/mL INTERFACE SYSTEM Comment: Vancomycin Trough Toxic Level= >15.0 ug/mL 03/13/2006 1:02 PM CDT [facility] CHEMI[facility] ORDERABLES Final Res ult Performing Organization Address [facility] Phone Number INTERFACE SYSTEM Refer [...] ORDERABLES Final R esult Performing Organization Address [facility] Phone Number INTERFACE SYSTEM Refer to clinic/hospital department * C-REACTIVE PROTEIN, CSF (03/12/2006 3:10 PM CDT) CRP, CSF 0.15 mg/dL INTERFACE SYSTEM Comment: Note: New methodology using CSF CRP (highly sensitive) assay is effective 12/11/03. No reference range has been established for CSF CRP. 03/12/2006 3:10 PM CDT Alexa Dillon MD BODY FLUIDS AND STOOLS Final Result Performing Organization Address [facility] Phone Number INTERFACE SYSTEM Refer [...] AND STOOLS Final Result Performing Organization Address [facility] Phone Number INTERFACE SYSTEM Refer to clinic/hospital department * (ABNORMAL) TOTAL PROTEIN, CSF (03/12/2006 3:10 PM CDT) PROTEIN, CSF 365(H) 15 - 45 mg/dL INTERFACE SYSTEM Comment: New CSF Protein Quantitative Methodology - Note New Reference Range. bloody sample 03/12/2006 3:10 PM CDT Aman Gottlieb DO BODY FLUIDS AND STOOLS Final Result Performing Organization Address [facility] Phone Number INTERFACE SYSTEM Refer [...] PM and read back verified. RBC, CSF 620830(H) <=0 /uL INTERFACE SYSTEM 03/12/2006 3:10 PM CDT us Aman Gottlieb DO BODY FLUIDS AND STOOLS Final Result Performing Organization Address [facility] de Phone Number INTERFACE SYSTEM Refer to [...] HEMATOLOGY ORDERABLES Final Result Performing Organization Address [facility] de Phone Number INTERFACE SYSTEM Refer to [...] HEMATOLOGY ORDERABLES Final Result Performing Organization Address [facility] Phone Number INTERFACE SYSTEM Refer [...] ORDERABLES Final R esult Performing Organization Address [facility] de Phone Number INTERFACE SYSTEM Refer to [...] HEMATOLOGY ORDERABLES Final Result Performing Organization Address City/[facility] de Phone Number INTERFACE SYSTEM Refer to [...] HEMATOLOGY ORDERABLES Final Result Performing Organization Address City/[facility] Co de Phone Number INTERFACE SYSTEM Refer to clinic/hospital department * (ABNORMAL) C-REACTIVE PROTEIN (03/11/2006 4:40 AM CDT) CRP 6.5(H) 0.0 - 0.8 mg/dL INTERFACE SYSTEM 03/11/2006 4:40 AM CDT Sushil Arroyo MD CHEMISTRY ORDERABLES Final R [facility] Performing Organization Address [facility] Phone Number INTERFACE SYSTEM Refer [...] Sushil Arroyo MD CHEMISTRY ORDERABLES [facility] Per[facility] Organization Address [facility] Phone Number INTERFACE SYSTEM Refer [...] HEMATOLOGY ORDERABLES Final Result Performing Organization Address [facility] Phone Number INTERFACE SYSTEM Refer [...] ORDERABLES Final Resul t Performing Organization Address [facility] de Phone Number INTERFACE SYSTEM Refer to [...] HEMATOLOGY ORDERABLES Final Result Performing Organization Address City/[facility] de Phone Number INTERFACE SYSTEM Refer to [...] HEMATOLOGY ORDERABLES Final Result Performing Organization Address [facility] de Phone Number INTERFACE SYSTEM Refer to [...] ORDERABLES Final Res ult Performing Organization Address City/[facility] de Phone Number INTERFACE SYSTEM Refer to [...] ORDERABLES Final Res ult Performing Organization Address [facility] Phone Number INTERFACE SYSTEM Refer [...] ORDERABLES Final Res ult Performing Organization Address [facility] Phone Number INTERFACE SYSTEM Refer to clinic/hospital department * (ABNORMAL) C-REACTIVE PROTEIN (03/08/2006 6:34 PM CDT) CRP 5.2(H) 0.0 - 0.8 mg/dL INTERFACE SYSTEM 03/08/2006 6:34 PM CDT us Keenan Mandujano MD CHEMISTRY ORDERABLES Final Resu lt Performing Organization Address [facility] Co dc Phone Number INTERFACE SYSTEM Refer to clinic/hospital [...] URINE ORDERABLES Final Result Performing Organization Address [facility] Phone Number INTERFACE SYSTEM Refer [...] HEMATOLOGY ORDERABLES Final Result Performing Organization Address [facility] Phone Number INTERFACE SYSTEM Refer [...] ORDERABLES Final Resul t Performing Organization Address [facility] Phone Number INTERFACE SYSTEM Refer [...] HEMATOLOGY ORDERABLES Final Result Performing Organization Address [facility] Phone Number INTERFACE SYSTEM Refer [...] HEMATOLOGY ORDERABLES Final Result Performing Organization Address City/[facility] de Phone Number INTERFACE SYSTEM Refer to [...] ORDERABLES Final R esult Performing Organization Address City/[facility] de Phone Number INTERFACE SYSTEM Refer to [...] HEMATOLOGY ORDERABLES Final Result Performing Organization Address [facility] Phone Number INTERFACE SYSTEM Refer [...] URINE ORDERABLES Final Result Performing Organization Address [facility] Phone Number INTERFACE SYSTEM Refer [...] HEMATOLOGY ORDERABLES Final Result Performing Organization Address [facility] Phone Number INTERFACE SYSTEM Refer [...] HEMATOLOGY ORDERABLES Final Result Performing Organization Address [facility] Phone Number INTERFACE SYSTEM Refer [...] ORDERABLES Final R esult Performing Organization Address [facility] de Phone Number INTERFACE SYSTEM Refer to [...] HEMATOLOGY ORDERABLES Final Result Performing Organization Address [facility] Phone Number INTERFACE SYSTEM Refer [...] HEMATOLOGY ORDERABLES Final Result Performing Organization Address City/[facility] Co de Phone Number INTERFACE [...] INTERFACE SYSTEM 02/26/2006 12:4 4 PM CDT [facility] HEMATOLOGY ORDERABLES Final Re sult Performing Organization Address City/[facility] de Phone Number INTERFACE SYSTEM Refer to clinic/hospital department * C-REACTIVE PROTEIN (02/26/2006 12:44 PM CDT) CRP 0.2 0.0 - 0.8 mg/dL INTERFACE SYSTEM 02/26/2006 12:4 4 PM [facility] CHEMISTRY ORDERABLES Final Res ult Performing Organization Address [facility] de Phone Number INTERFACE SYSTEM Refer to [...] ORDERABLES Final Res ult Performing Organization Address [facility] Phone Number INTERFACE SYSTEM Refer [...] ORDERABLES Final Resul t Performing Organization Address [facility] Phone Number INTERFACE SYSTEM Refer [...] INTERFACE SYSTEM 02/25/2006 4:36 AM CDT [facility] HEMATOLOGY ORDERABLES Final Re sult Performing Organization Address [facility] de Phone Number INTERFACE SYSTEM Refer to [...] INTERFACE SYSTEM 02/25/2006 4:36 AM CDT [facility] HEMATOLOGY ORDERABLES Final Re sult Performing Organization Address [facility] Phone Number INTERFACE SYSTEM Refer [...] mmol/L INTERFACE SYSTEM 02/25/2006 4:36 AM CDT [facility] Zaid CHEMISTRY ORDERABLES Final Res ult Performing Organization Address [facility] Phone Number INTERFACE SYSTEM Refer to clinic/hospital department * C-REACTIVE PROTEIN (02/25/2006 4:36 AM CDT) CRP 0.2 0.0 - 0.8 mg/dL INTERFACE SYSTEM 02/25/2006 4:36 AM CDT [facility] CHEMISTRY ORDERABLES Final Res ult Performing Organization Address [facility] Phone Number INTERFACE SYSTEM Refer [...] URINE ORDERABLES Final Result Performing Organization Address [facility] Phone Number INTERFACE SYSTEM Refer [...] HEMATOLOGY ORDERABLES Final Result Performing Organization Address [facility] Phone Number INTERFACE SYSTEM Refer [...] HEMATOLOGY ORDERABLES Final Result Performing Organization Address [facility] Phone Number INTERFACE SYSTEM Refer [...] ORDERABLES Final Resul t Performing Organization Address [facility] Phone Number INTERFACE SYSTEM Refer [...] HEMATOLOGY ORDERABLES Final Result Performing Organization Address City/[facility] Phone Number INTERFACE SYSTEM Refer [...] HEMATOLOGY ORDERABLES Final Result Performing Organization Address [facility] de Phone Number INTERFACE SYSTEM Refer to [...] ORDERABLES Final Resul t Performing Organization Address [facility] de Phone Number INTERFACE SYSTEM Refer to [...] ORDERABLES Final Res ult Performing Organization Address [facility] Phone Number INTERFACE SYSTEM Refer [...] ORDERABLES Final Res ult Performing Organization Address [facility] Phone Number INTERFACE SYSTEM Refer [...] HEMATOLOGY ORDERABLES Final Result Performing Organization Address [facility] de Phone Number INTERFACE SYSTEM Refer to [...] ORDERABLES Final Res ult Performing Organization Address [facility] Co de Phone Number INTERFACE [...] ORDERABLES Final Res ult Performing Organization Address City/[facility] Co de Phone Number INTERFACE [...] HEMATOLOGY ORDERABLES Final Result Performing Organization Address City/[facility]/ZIP Co de Phone Number INTERFACE SYSTEM [...] ORDERABLES Final Resul t Performing Organization Address [facility] Phone Number INTERFACE SYSTEM Refer [...] HEMATOLOGY ORDERABLES Final Result Performing Organization Address [facility] Phone Number INTERFACE SYSTEM Refer [...] HEMATOLOGY ORDERABLES Final Result Performing Organization Address [facility] de Phone Number INTERFACE SYSTEM Refer to [...] ORDERABLES Final R esult Performing Organization Address City/[facility]/ZIP Co de Phone Number INTERFACE SYSTEM [...] ORDERABLES Final Resu lt Performing Organization Address City/[facility] de Phone Number INTERFACE SYSTEM Refer to [...] ORDERABLES Final Res ult Performing Organization Address [facility] de Phone Number INTERFACE SYSTEM Refer to [...] ORDERABLES Final Res ult Performing Organization Address [facility] de Phone Number INTERFACE SYSTEM Refer to [...] ORDERABLES Final Res ult Performing Organization Address [facility] Phone Number INTERFACE SYSTEM Refer [...] ORDERABLES Final Res t Performing Organization Address [facility] Phone Number INTERFACE SYSTEM Refer [...] been established. 01/28/2006 4:52 AM CDT Result [facility] Keenan Mandujano MD HEMATOLOGY ORDERABLES Final [facility] Performing Organization Address [facility] Phone Number INTERFACE SYSTEM Refer [...] ORDERABLES Final Res ult Performing Organization Address [facility] Phone Number INTERFACE SYSTEM Refer [...] ORDERABLES Final Res ult Performing Organization Address [facility] Phone Number INTERFACE SYSTEM Refer [...] been established. 01/24/2006 5:00 AM CDT Keenan Mandjuano MD HEMATOLOGY ORDERABLES Final Res ult Performing Organization Address [facility] Phone Number INTERFACE SYSTEM Refer [...] been established. 01/23/2006 4:57 AM CDT Result [facility] Keenan Mandujano MD HEMATOLOGY ORDERABLES Final Res ult Performing Organization Address [facility] Phone Number INTERFACE SYSTEM Refer [...] ORDERABLES Final Res ult Performing Organization Address [facility] Phone Number INTERFACE SYSTEM Refer [...] ORDERABLES Final Resu lt Performing Organization Address [facility] Phone Number INTERFACE SYSTEM Refer [...] ORDERABLES Final Res ult Performing Organization Address [facility] Phone Number INTERFACE SYSTEM Refer [...] ORDERABLES Final Resu lt Performing Organization Address [facility] Phone Number INTERFACE SYSTEM Refer [...] ORDERABLES Final Resu lt Performing Organization Address City/[facility] Co de Phone Number INTERFACE [...] HEMATOLOGY ORDERABLES Final Result Performing Organization Address City/[facility] Co de Phone Number INTERFACE [...] ORDERABLES Final R esult Performing Organization Address City/[facility] Co de Phone Number INTERFACE [...] ORDERABLES Final Resul t Performing Organization Address City/[facility]/ZIP Co de Phone Number INTERFACE SYSTEM Refer to clinic/hospital department documented in this encounter Visit Diagnoses Diagnosis Other specified rehabilitation procedure(V57.89)- Primary Other specified rehabilitation procedure documented in this encounter
--- OUTSIDE RECORDS SUMMARY | 2025-02-15 16:15 | XMS_ITS | Encounter Summary ---
Author Organization [employer] Address 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 Gender Identity Not on file Sexual Orientation [...] ORDERABLES Final Re sult Performing Organization Address [facility] Phone Number INTERFACE SYSTEM Refer to clinic/hospital department * C-REACTIVE PROTEIN (04/05/2006 5:15 AM CDT) Pathologist [facility] CRP 0.2 0.0 - 0.8 mg/dL INTERFACE SYSTEM 04/05/2006 5:15 AM CDT [facility] CHEMISTRY ORDERABLES Final Res ult Performing Organization Address [facility] Phone Number INTERFACE [...] ORDERABLES Final R esult Performing Organization Address [facility] Phone Number INTERFACE SYSTEM [...] ORDERABLES Final Res ult Performing Organization Address [facility] Phone Number INTERFACE SYSTEM [...] ORDERABLES Final Res ult Performing Organization Address [facility] Phone Number INTERFACE SYSTEM Refer to clinic/hospital department * C-REACTIVE PROTEIN (03/29/2006 5:15 AM CDT) CRP 0.3 0.0 - 0.8 mg/dL INTERFACE SYSTEM 03/29/2006 5:15 AM CDT us Keenan Mandujano MD CHEMISTRY ORDERABLES Final Resu lt Performing Organization Address [facility] Phone Number INTERFACE SYSTEM [...] ORDERABLES Final Resu lt Performing Organization Address [facility] Phone Number INTERFACE SYSTEM [...] ORDERABLES Final Re sult Performing Organization Address [facility] Phone Number INTERFACE SYSTEM [...] INTERFACE SYSTEM 03/24/2006 12:1 0 PM CDT [facility] HEMATOLOGY ORDERABLES Final Re sult Performing Organization Address [facility] Phone Number INTERFACE SYSTEM Refer to clinic/hospital department * VANCOMYCIN LEVEL TROUGH (03/24/2006 12:10 PM CDT) VANCOMYCIN, TROUGH 11.3 5.0 - 15.0 ug/mL INTERFACE SYSTEM Comment: Vancomycin Trough Toxic Level= >15.0 ug/mL 03/24/2006 12:1 0 PM CDT [facility] [facility] CHEMISTRY ORDERABLES Final Res ult Performing Organization Address [facility] Phone Number INTERFACE SYSTEM Refer to clinic/hospital department * C-REACTIVE PROTEIN (03/24/2006 12:10 PM CDT) CRP 0.6 0.0 - 0.8 mg/dL INTERFACE SYSTEM 03/24/2006 12:1 0 PM CDT [employer] CHEMISTRY ORDERABLES Final Res ult Performing Organization Address [facility] Phone Number INTERFACE SYSTEM [...] ult Performing Organization Address [facility] Co de Phone Number [...] INTERFACE SYSTEM 03/23/2006 11:3 0 AM CDT [employer] Zaid HEMATOLOGY ORDERABLES Final Re sult Performing Organization Address [facility] de [...] INTERFACE SYSTEM 03/23/2006 11:3 0 AM CDT [facility] HEMATOLOGY ORDERABLES Final Re sult Performing Organization Address [facility] Co de Phone Number INTERFACE SYSTEM Refer to clinic/hospital department * VANCOMYCIN LEVEL TROUGH (03/23/2006 11:30 AM CDT) VANCOMYCIN, TROUGH 6.2 5.0 - 15.0 ug/mL INTERFACE SYSTEM Comment: Vancomycin Trough Toxic Level= >15.0 ug/mL 03/23/2006 11:3 0 AM CDT [employer] CHEMISTRY ORDERABLES Final Res ult Performing Organization Address [facility] Phone Number INTERFACE SYSTEM Refer to clinic/hospital department * (ABNORMAL) C-REACTIVE PROTEIN (03/23/2006 11:30 AM CDT) CRP 1.0(H) 0.0 - 0.8 mg/dL INTERFACE SYSTEM 03/23/2006 11:3 0 AM CDT us [facility] CHEMISTRY ORDERABLES Final Res ult Performing Organization Address [facility] Phone Number INTERFACE [...] INTERFACE SYSTEM 03/23/2006 11:3 0 AM CDT [facility] CHEMI[facility]Y ORDERABLES Final Res ult Performing Organization Address [facility] Phone Number INTERFACE SYSTEM [...] ORDERABLES Final R esult Performing Organization Address [facility] Phone Number INTERFACE SYSTEM [...] /HPF INTERFACE SYSTEM 03/22/2006 8:30 PM CDT [facility] URINE ORDERABLES Final Result Performing Organization Address [facility] Phone Number INTERFACE SYSTEM [...] Sushil Arroyo MD CHEMISTRY ORDERABLES Final R [facility] Performing Organization Address [facility] de [...] Sushil Arroyo MD CHEMISTRY ORDERABLES Final R [facility] Performing Organization Address [facility] [...] HEMATOLOGY ORDERABLES Final Result Performing Organization Address [facility] Phone Number INTERFACE SYSTEM [...] HEMATOLOGY ORDERABLES Final Result Performing Organization Address [facility] Phone Number INTERFACE SYSTEM [...] ORDERABLES Final R esult Performing Organization Address [facility] Phone Number INTERFACE SYSTEM [...] ORDERABLES Final Resul t Performing Organization Address [facility] Phone Number INTERFACE SYSTEM Refer to clinic/hospital department documented in this encounter Visit Diagnoses Diagnosis Other specified rehabilitation procedure(V57.89)- Primary Other specified rehabilitation procedure documented in this encounter
--- OUTSIDE RECORDS SUMMARY | 2025-02-15 16:15 | XMS_ITS | Encounter Summary ---
Author Organization [facility] Address [address] [place] [address] Care Team Providers Care Quality Measurement Specialist Name Role Phone Unavailable Primary Care Provider Unavailabl e Encounter Details Date Type Department Care Team (Late st Contact Info) Description 05/13/2019 Lab Requisition [facility] [address] [place] [address] [facility], External Provider [address] [place] [address] Other fatigue Social History Tobacco Use Types Packs/Day Years Used Date Smoking Tobacco: Never Assessed Sex and Gender Information Value Date Recorded Sex Assigned at Not on file 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 Gender Identity Not on file Sexual Orientation Not on file documented as of this encounter Plan of Treatment Not on file documented as of this encounter Procedures Procedure Name Priority Date/Time Associated Diagnosis Comments CBC WITH DIFFERENTIAL Stat 05/13/2019 4:50 PM PAPER BAGS SEWING MACHINE OPERATOR Other fatigue BASIC METABOLIC PANEL Stat 05/13/2019 4:50 PM PAPER BAGS SEWING MACHINE OPERATOR Other fatigue documented in this encounter Results * (ABNORMAL) CBC WITH DIFFERENTIAL (05/13/2019 4:50 PM PAPER BAGS SEWING MACHINE OPERATOR) [facility] WBC 6.1 4.5 - 10.5 K/uL 05/13/2019 9:52 PM PAPER BAGS SEWING MACHINE OPERATOR [facility] RBC 4.04(L) 4.50 - 5.40 M/uL 05/13/2019 9:52 PM PAPER BAGS SEWING MACHINE OPERATOR [facility] HEMOGLOBIN 12.1(L) 13.6 - 16.5 g/dL 05/13/2019 9:52 PM PAPER BAGS SEWING MACHINE OPERATOR [facility] HEMATOCRIT 37.1(L) 40.0 - 48.0 % 05/13/2019 9:52 PM [facility] MCV 91.7 82.0 - 99.0 fL 05/13/2019 9:52 PM [facility] MCH 30.0 27.8 - 34.5 pg 05/13/2019 9:52 PM [facility] MCHC 32.7 32.5 - 35.5 g/dL 05/13/2019 9:52 PM [facility] RDW 14.9(H) 11.5 - 14.5 % 05/13/2019 9:52 PM [facility] PLATELETS 162 160 - 420 K/uL 05/13/2019 9:52 PM [facility] [employer] [facility] MPV 9.8 8.7 - 12.7 fL 05/13/2019 9:52 PM [facility] NEUTROPHILS 70 45 - 70 % 05/13/2019 9:52 PM [facility] LYMPHOCYTES 16 16 - 45 % 05/13/2019 9:52 PM [facility] MONOCYTES 10 3 - 13 % 05/13/2019 9:52 PM [facility] EOSINOPHILS 4 0 - 7 % 05/13/2019 9:52 PM [facility] BASOPHILS 1 0 - 2 % 05/13/2019 9:52 PM [facility] [employer] [facility] NEUTROPHIL ABSOLUTE 4.20 1.90 - 7.00 K/uL 05/13/2019 9:52 PM [facility] [employer] [facility] LYMPHOCYTE ABSOLUTE 0.90 K/uL 05/13/2019 9:52 PM [facility] MONOCYTE ABSOLUTE 0.60 K/uL 05/13/2019 9:52 PM [facility] EOSINOPHIL ABSOLUTE 0.30 0.00 - 0.70 K/uL 05/13/2019 9:52 PM [facility] BASOPHILS ABSOLUTE 0.00 K/uL 05/13/2019 9:52 PM [facility] [employer] [facility] Blood BLOOD SPECIMEN / Unknown Collection / Unknown 05/13/2019 4:50 PM PAPER BAGS SEWING MACHINE OPERATOR 05/13/2019 9:42 PM PAPER BAGS SEWING MACHINE OPERATOR us External Provider [facility] HEMATOLOGY ORDERABLES Fin al Result [facility] [employer] [facility] LESTER# [id number] [place] [address] * (ABNORMAL) BASIC METABOLIC PANEL (05/13/2019 4:50 PM PAPER BAGS SEWING MACHINE OPERATOR) SODIUM 143 136 - 145 mmol/L 05/13/2019 10:11 PM [facility] [employer] [facility] POTASSIUM 4.2 3.4 - 5.1 mmol/L 05/13/2019 10:11 PM [facility] [employer] [facility] CHLORIDE 104 98 - 107 mmol/L 05/13/2019 10:11 PM [facility] CO2 27 22 - 29 mmol/L 05/13/2019 10:11 PM [facility] CALCIUM 8.5(L) 8.6 - 10.4 mg/dL 05/13/2019 10:11 PM [facility] BUN 24(H) 6 - 20 mg/dL 05/13/2019 10:11 PM [facility] CREATININE 1.09 0.70 - 1.20 mg/dL 05/13/2019 10:11 PM [facility] Comment:The GFR result is no t clinically significant on patients <18 or >70 years of age. GLUCOSE 96 74 - 99 mg/dL 05/13/2019 10:11 PM [facility] [employer] [facility] GFR >60 mL/min/1.7 3 sq meter 05/13/2019 10:11 PM [facility] [employer] [facility] Comment: eGFR has not been validated [...] mL/min/1.7 3 sq meter 05/13/2019 10:11 PM PAPER BAGS SEWING MACHINE OPERATOR [facility] ANION GAP 12 8 - 16 mmol/L 05/13/2019 10:11 PM PAPER BAGS SEWING MACHINE OPERATOR [facility] Blood BLOOD SPECIMEN / Unknown Collection / Unknown 05/13/2019 4:50 PM PAPER BAGS SEWING MACHINE OPERATOR 05/13/2019 9:42 PM PAPER BAGS SEWING MACHINE OPERATOR External Provider [facility] CHEMISTRY ORDERABLES Johanne l Result [facility] CLIA# [id number] [place] [address] documented in this encounter Visit Diagnoses Diagnosis Other fatigue documented in this encounter
--- OUTSIDE RECORDS SUMMARY | 2025-02-15 16:15 | XMS_ITS | Clinical Summary ---
Author Organization [facility] [employer] Address [address] [place] [address] Care Team Providers Care Hot Stick Worker Name Role Phone Rod Strauss MD Primary Care Provider [phone] Source Comments [facility] [employer],non-owned Affiliates and Associated Physician Practices is amultiple site organization consisting of ambulatory clinics and hospital sitesin [place], [place], [place] and [place]. This disclosure is being madepursuant to the Care Everywhere program and may not contain all information available regarding this patient. 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 Follows with [facility] Cardiology. 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 Urine cx from [facility] on 05/04 also growing pseudomonas, resistant to [...] to reach son and obtained collateral from [facility] - [place] Head today. - Fall precautions, [...] declined 05/31/2024 [facility] - Occupational Stress Questionnaire Answer Date [...] any time in the past 12 m [facility], were you homeless or living in a penitentiary (including now)? Patient declined 05/31/2024 Sex and Gender Information Value Date Recorded Sex Assigned at Not on file Legal Sex Male 5:23 PM COUNTER HELPER Gender Identity Not on file Sexual Orientation Not on file Last Filed Vital Signs Vital Sign Reading Time Taken Comments Blood Pressure 135/77 06/15/2024 11:48 AM COUNTER HELPER Pulse 74 06/15/2024 11:48 AM COUNTER HELPER Temperature 36.4 C (97.6 F) 06/15/2024 8:35 AM COUNTER HELPER Respiratory Rate 16 06/15/2024 11:48 AM COUNTER HELPER Oxygen Saturation 97% 06/15/2024 11:48 AM COUNTER HELPER Inhaled Oxygen Concentration 40% 06/04/2024 9 :43 AM COUNTER HELPER Weight 88.5 kg (195 lb) 06/15/2024 8:35 AM COUNTER HELPER Height 190.5 cm (6' 3) 06/15/2024 8:35 AM COUNTER HELPER Body Mass Index 24.37 06/15/2024 8:35 AM COUNTER HELPER Plan of Treatment Health Maintenance Due [...] this topic Medical Devices Implanted Type Area Conservation Planner Device Identifier Shelf Expiration Date Model / Serial / Lot Synchromed Iii Pump Implanted:Qty: 1 on 06/04/2024 by Deshawn Schultz MD at [facility] Left: Abdomen [employer] 08/18/2025 8667-40 / [id number] / Ascenda Implanted:Qty: 1 on 06/04/2024 by Deshawn Schultz MD at [facility] Left: Abdomen [employer] 12/14/2024 [id number] / / [id number] Procedures Procedure Name Priority Date/Time Associated Diagnosis Comments HEPATITIS C AB SCREEN RFLX NAAT QUANT STAT 06/06/2024 11:49 AM COUNTER HELPER from Last 3 Months or Most Recently Relevant to Health Maintenance Results * HEPATITIS C AB SCREEN RFLX NAAT QUANT (06/06/2024 11:49 AM COUNTER HELPER) Hepatitis C Antibody Non-react lottie Non-reac tive 06/06/2024 1:01 PM COUNTER HELPER [facility] Comment:Hepatitis C Antibody screen [...] Lab Venipuncture / Unknown 06/06/2024 11:49 AM COUNTER HELPER 06/06/2024 12:05 PM COUNTER HELPER Salena Griffin FRANCHISE FIELD CONSULTANT-CR[facility]INAL [facility] - CHEMISTRY ORDERABLES F inal Result [facility] [address] [place] [address], [facility] [phone] from Last 3 Months or Most Recently Relevant to Health Maintenance Additional Health Concerns Infection Onset Date Last Indicated ESBL GNR 06/01/2024 06/01/[address] [place] [address] [facility] [place] [address] MEDICARE Advance Directives * Full Code (Latest Code Status on File) Date Activated Date Inactivated Comments 05/31/2024 11:27 PM 06/09/2024 8:37 PM Care Teams Hot Stick Worker Relationship Specialty Start Date End Date Rod Strauss MD [address] [place] [id number] PCP - General Internal Medicine 06/15/24
--- OUTSIDE RECORDS SUMMARY | 2025-02-15 16:15 | XMS_ITS | Encounter Summary ---
Author Organization [facility] Address 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
--- OUTSIDE RECORDS SUMMARY | 2025-02-15 16:15 | XMS_ITS | Encounter Summary ---
Author Organization [facility] Address [address] [place] [address] Care Team Providers Care Healthcare Administration Internship Name Role Phone Unavailable Primary Care Provider Unavailabl e Encounter Details Date Type Department Care Team (Late st Contact Info) Description 03/10/2006 Outpatient Historical [facility] Adult Hospitalists [address] [address] Rita Esqueda MD [id number], [place] [address] Social History Tobacco Use Types Packs/Day Years Used Date Smoking Tobacco: Never Assessed Sex and Gender Information Value Date Recorded Sex Assigned at Not on file Legal Sex Male 3:46 AM MOLD STACKER Gender Identity Not on file Sexual Orientation Not on file documented as of this encounter Plan of Treatment Not on file documented as of this encounter Visit Diagnoses Not on filedocumented in this encounter
--- OUTSIDE RECORDS SUMMARY | 2025-02-15 16:16 | XMS_ITS | Encounter Summary ---
Author Organization [facility] Address [address] [place] [address] Care Team Providers Care Bisque Tile Burner Name Role Phone Unavailable Primary Care Provider Unavailabl e Encounter Details Date Type Department Care Team (Late st Contact Info) Description 01/12/2006 Outpatient Historical [facility] Trauma and General Surgery [address] [facility] [address] [address] [place] [address] [place] [address] Social History Tobacco Use Types Packs/Day Years Used Date Smoking Tobacco: Never Assessed Sex and Gender Information Value Date Recorded Sex Assigned at Not on file Legal Sex Male 3:46 AM CAREER DEVELOPMENT 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
--- OUTSIDE RECORDS SUMMARY | 2025-02-15 16:16 | XMS_ITS | Clinical Summary ---
Author Organization [facility] Address [address] [place] [address] Care Team Providers Care Family Nurse Name Role Phone Unavailable Primary Care [...] daily. 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 Urine cx from [facility] on 05/04 also growing pseudomonas, [...] to reach son and obtained collateral from [facility] - CT Head today. - [...] oxycodone prn. Baclofen pump rx'd by the [facility]. Iron deficiency anemia, unspecified 10/26/2012 Gastric [...] Plan: Uses wheelchair at baseline. Resides at [facility]. Has baclofen pump/neurostimulator in place. 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
--- OUTSIDE RECORDS SUMMARY | 2025-02-15 16:16 | XMS_ITS | Encounter Summary ---
Author Organization [facility] Address [address] [place] [address] Care Team Providers Care Sales And Catering Coordinator Name Role Phone Unavailable Primary Care Provider Unavailabl e Encounter Details Date Type Department Care Team (Late st Contact Info) Description 09/26/2019 Lab Requisition [facility] Services [id number] [place] [address] [facility], External Provider [address] [place] [address] Unspecified abnormal findings in urine Social History Tobacco Use Types Packs/Day Years Used Date Smoking Tobacco: Never Assessed Sex and Gender Information Value Date Recorded Sex Assigned at Not on file Legal Sex Male 3:46 AM ALIGNMENT MECHANIC Gender Identity Not on file Sexual [...] - 145 mmol/L 09/26/2019 8:53 PM CDT [facility] POTASSIUM 5.1 3.4 - 5.1 mmol/L 09/26/2019 8:53 PM CDT [facility] CHLORIDE 105 98 - 107 mmol/L 09/26/2019 8:53 PM [facility] CO2 23 22 - 29 mmol/L 09/26/2019 8:53 PM [facility] CALCIUM 8.6 8.6 - 10.4 mg/dL 09/26/2019 8:53 PM [facility] BUN 28(H) 6 - 20 mg/dL 09/26/2019 8:53 PM [facility] CREATININE 1.07 0.67 - 1.17 mg/dL 09/26/2019 8:53 PM [facility] Comment:The GFR result is no t clinically significant on patients <18 or >70 years of age. GLUCOSE 83 74 - 99 mg/dL 09/26/2019 8:53 PM [facility] TOTAL PROTEIN 6.7 6.3 - 8.7 g/dL 09/26/2019 8:53 PM [facility] ALBUMIN 4.2 3.5 - 5.2 g/dL 09/26/2019 8:53 PM [facility] BILIRUBIN TOTAL 0.3 0.2 - 1.3 mg/dL 09/26/2019 8:53 PM [facility] ALKALINE PHOSPHATASE 99 40 - 150 U/L 09/26/2019 8:53 PM [facility] AST 18 0 - 41 U/L 09/26/2019 8:53 PM [facility] ALT 18 0 - 41 U/L 09/26/2019 8:53 PM [facility] GFR >60 mL/min/1.7 3 sq meter 09/26/2019 8:53 PM [facility] Comment: eGFR has not been [...] 3 sq meter 09/26/2019 8:53 PM CDT [facility] ANION GAP 14 8 - 16 mmol/L 09/26/2019 8:53 PM CDT [facility] Blood BLOOD SPECIMEN / Unknown Collection / Unknown 09/26/2019 3:44 PM CDT 09/26/2019 8:17 PM CDT us External Provider [facility] CHEMISTRY ORDERABLES Johanne l Result [facility] CLIA# [id number] [place] [address] * (ABNORMAL) CBC WITH DIFFERENTIAL (09/26/2019 3:44 PM CDT) WBC 6.6 4.5 - 10.5 K/uL 09/26/2019 8:26 PM CDT [facility] RBC 3.80(L) 4.50 - 5.40 M/uL 09/26/2019 8:26 PM CDT [facility] HEMOGLOBIN 11.5(L) 13.6 - 16.5 g/dL 09/26/2019 8:26 PM CDT [facility] HEMATOCRIT 34.3(L) 40.0 - 48.0 % 09/26/2019 8:26 PM CDT [facility] MCV 90.2 82.0 - 99.0 fL 09/26/2019 8:26 PM CDT [facility] MCH 30.2 27.8 - 34.5 pg 09/26/2019 8:26 PM CDT [facility] MCHC 33.5 32.5 - 35.5 g/dL 09/26/2019 8:26 PM CDT [facility] RDW 15.8(H) 11.5 - 14.5 % 09/26/2019 8:26 PM CDT [facility] PLATELETS 175 160 - 420 K/uL 09/26/2019 8:26 PM CDT [facility] MPV 10.2 8.7 - 12.7 fL 09/26/2019 8:26 PM CDT [facility] NEUTROPHILS 68 45 - 70 % 09/26/2019 8:26 PM CDT [facility] LYMPHOCYTES 16 16 - 45 % 09/26/2019 8:26 PM CDT [facility] MONOCYTES 10 3 - 13 % 09/26/2019 8:26 PM CDT [facility] EOSINOPHILS 5 0 - 7 % 09/26/2019 8:26 PM CDT [facility] BASOPHILS 1 0 - 2 % 09/26/2019 8:26 PM CDT [facility] NEUTROPHIL ABSOLUTE 4.50 1.90 - 7.00 K/uL 09/26/2019 8:26 PM CDT [facility] LYMPHOCYTE ABSOLUTE 1.10 0.70 - 4.50 K/uL 09/26/2019 8:26 PM CDT [facility] MONOCYTE ABSOLUTE 0.60 0.10 - 1.30 K/uL 09/26/2019 8:26 PM CDT [facility] EOSINOPHIL ABSOLUTE 0.40 0.00 - 0.70 K/uL 09/26/2019 8:26 PM CDT [facility] BASOPHILS ABSOLUTE 0.00 0.00 - 0.20 K/uL 09/26/2019 8:26 PM CDT [facility] Blood BLOOD SPECIMEN / Unknown Collection / Unknown 09/26/2019 3:44 PM CDT 09/26/2019 8:17 PM CDT us External Provider [facility] HEMATOLOGY ORDERABLES Fin al Result [facility] CLIA# [id number] [place] [address] * (ABNORMAL) URINALYSIS WITH REFLEX MICROSCOPIC (09/26/2019 3:00 PM CDT) COLOR UA Yellow Pale to Dark Yellow 09/26/2019 8:52 PM CDT [facility] CLARITY UA Slightly Cloudy(A) Clear 09/26/2019 8:52 PM CDT [facility] SPECIFIC GRAVITY UA 1.019 1.003 - 1.035 09/26/2019 8:52 PM CDT [facility] PH UA 5.0 5.0 - 8.0 09/26/2019 8:52 PM CDT [facility] LEUKOCYTE ESTERASE UA Negative Negative 09/26/2019 8:52 PM CDT [facility] NITRITE UA Negative Negative 09/26/2019 8:52 PM CDT [facility] PROTEIN UA Negative Negative 09/26/2019 8:52 PM CDT [facility] GLUCOSE UA Negative Negative 09/26/2019 8:52 PM CDT [facility] KETONES UA Negative Negative 09/26/2019 8:52 PM CDT [facility] UROBILINOGEN UA Normal <2.0 mg/dL 0 8:52 PM CDT [facility] BILIRUBIN UA Negative Negative 09/26/2019 8:52 PM CDT [facility] BLOOD UA Negative Negative 09/26/2019 8:52 PM CDT [facility] Comment:Ascorbic acid may ca use false negative results for blood. A microscopic review was reflexed to rule out this interference. WBC UA 0-2 0 - 2 /hpf [facility]2019 8:[facility] RBC [facility]A 0-2 0 - 2 /hpf 09/26/2019 8:52 PM CDT [facility] BACTERIA UA 1+(A) Negative /hpf 09/26/2019 8:52 PM CDT [facility] EPITHELIAL CELLS, URINE 0-5 0 - 5 /hpf 09/26/2019 8:52 PM CDT [facility] HYALINE CAST 0-2 None Seen, 0-2 /lpf 09/26/2019 8:52 PM CDT [facility] Ascorbic Acid UA Positive(A) Negative 020 8:52 PM CDT [facility] Urine URINE SPECIMEN OBTAINED BY CLEAN CATCH PROCEDURE / Unknown Collection / Unknown 09/26/2019 3:00 PM CDT 09/26/2019 8:17 PM CDT us External Provider [facility] URINE ORDERABLES Final Re sult [facility] CLIA# [id number] [place] [address] documented in this encounter Visit Diagnoses Diagnosis Unspecified abnormal findings in urine documented in this encounter
--- OUTSIDE RECORDS SUMMARY | 2025-02-15 16:16 | XMS_ITS | Encounter Summary ---
Author Organization [facility] Address [address] [place] [address] Care Team Providers Care Concrete Gun Operator Name Role Phone Unavailable Primary Care Provider Unavailabl e Encounter Details Date Type Department Care Team (Late st Contact Info) Description 01/11/2006 Outpatient Historical [facility] [address] [address] [phone] [place] [address] [place] [address] Social History Tobacco Use Types Packs/Day Years Used Date Smoking Tobacco: Never Assessed Sex and Gender Information Value Date Recorded Sex Assigned at Not on file Legal 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
--- OUTSIDE RECORDS SUMMARY | 2025-02-15 16:16 | XMS_ITS | Encounter Summary ---
Author Organization [facility] Address [address] [place] [address] Care Team Providers Care Manager Clinical Applications Name Role Phone Unavailable Primary Care Provider Unavailabl e Encounter Details Date Type Department Care Team (Late st Contact Info) Description 01/11/2006 Outpatient Historical [facility] Trauma and General Surgery [address] [facility] [address] [phone] [place] [address] [place] [address] Social History Tobacco Use Types Packs/Day Years Used Date Smoking Tobacco: Never Assessed Sex and Gender Information Value Date Recorded Sex Assigned at Not on file Legal 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
--- OUTSIDE RECORDS SUMMARY | 2025-02-15 16:28 | XMS_ITS | Encounter Summary ---
Author Name [facility] [place] [facility] [place] [facility] [place] Address [address] [place] [address] Care Team Providers Care Senior Water/Wastewater Engineer Name Role Phone October Primary Care Provider Unavailabl e Insurance Providers: All historical and current Section Date Range: From patient's date of to the date document was created. This section includes the names of all active insurance providers for the patient. Insurance Provider Type of Coverage Plan Name Start of Policy Coverage End of Policy Coverage Group Number Member ID Insurance Provider's Telephone Number Policy Arriaza's Name Patient's Relationship to Policy Arriaza MEDICAID (WNR) MEDICAID MEDIC AID (WNR) Feb 02, 2015 MEDICAI D [id number] ABIMAEL ASKEW PATIENT MEDICARE (WNR) MEDICARE (M) PART B Jan 03, 2016 PART B [id number] ABIMAEL ASKEW PATIENT MEDICARE (WNR) MEDICARE ([place]) PART B Jan 03, 2016 PART B [id number] ABIMAEL ASKEW PATIENT MEDICARE (WNR) MEDICARE ([place]) PART A May 05, 2014 PART A [id number] [phone] ABIMAEL ASKEW PATIENT MEDICARE (WNR) MEDICARE (M) PART A May 05, 2014 PART A [id number] ABIMAEL ASKEW PATIENT Selected Encounter This section includes the information on record at [place] for the Encounter. Date/Time Encounter Type Encounter Description Reason Pro vider Source IHE Encounter Template Text not used by [place] Advance Directives: All historical and current Section Date Range: From patient's date of to the date document was created. This section includes ALL of a patient's completed or amended [place] Advance and Rescinded Directives. The entries below indicate that a directive exists for the patient, but an actual copy is not included with this document. The data comes from all [place] facilities. Date Advance Directives Provider Source Oct 12, 2024 ADVANCE DIRECTIVE RAHEEL MINER [facility] Oct 10, 2020 [facility] Oct 10, 2020 RESCINDED ADVANCE DIRECTIVE BARBY ALMAZAN [facility] Oct 13, 2014 ADVANCE DIRECTIVE STEFANIE MENCHACA [facility] Apr 28, 2012 ADVANCE DIRECTIVE DISCUSSION DOMINGA CHILDS [facility] Apr 08, 2006 ADVANCE DIRECTIVE PACHECO TOBIAS [facility]
--- OUTSIDE RECORDS SUMMARY | 2025-02-15 16:28 | XMS_ITS | Continuity of Care Document ---
Author Name [facility] Organization [facility] Care Team Providers Care Group Exercise Class Instructor Name Role Phone [facility] Unavailable Unavailable Problems Combined list of problems from Department of Defense and Veterans Affairs facilities. It does not include entries that were removed or entered in error. Problem Status Onset Date Problem Type Date of Resolution Comments Source Baclofen pump placement Active 06/03/20 06 Condition [facility] Neurogenic bladder (SNOMED CT 547651364) Active 01/08/20 06 Condition [facility] Neurogenic bowel (SNOMED CT 365880932) Active 01/08/20 06 Condition [facility] RT SUPRASPINATUS TEAR Active 01/08/20 06 Condition [facility] T7 COMPRESSION FX Active 01/04/20 06 Condition [facility] Allergic Rhinitis (SCT 48477379) Active Condition [facility] Benign essential hypertension Active Condition [facility] Chronic pain (SNOMED CT 53341668) Active Condition [facility] Debility Active Condition [facility] EEG abnormality with seizure Active Condition [facility] Folic acid deficiency Active Condition [facility] GERD - Gastro-Esophageal Reflux Disease (SCT 567127556) Active Condition [facility] Hemorrhoids Active Condition [facility] History of recurrent urinary tract infection (SNOMED CT 754420947) Active Condition [facility] Hyperlipidemia (SNOMED CT 20173667) Active Condition [facility] Hypertrophic cardiomyopathy Active Condition [facility] Ingrowing nail with infection (SNOMED CT 17496523) Active Condition [facility] Intrathecal infusion pump present Active Condition [facility] Iron deficiency Active Condition [facility] Male erectile disorder Active Condition [facility] Melanoma of Skin (ICD-9-CM 172.9) Active Condition [facility] Meningitis * (ICD-9-CM 322.9) Active Condition [facility] Myofascial pain (SNOMED CT 017150214) Active Condition [facility] Neuropathic pain Active Condition [facility] Paresthesia * (ICD-9-CM 782.0) Active Condition [facility] Peptic ulcer Active Condition [facility] Personal History of Traumatic Brain Injury Active Condition Feb 02, 2011 Entered By: ARTHUR SALCIDO Comment: subarachnoid hemmorrhage in 2003 [facility] Personal History of Venous Thrombosis and Embolism (ICD-9-CM V12.51) Active Condition Apr 21 Entered By: ARTHUR SALCIDO Comment: left leg [facility] Quadriplegia (SNOMED CT 36267435) Active Condition Apr 21, 2011 Entered By: ARTHUR SALCIDO Comment: C3 KEREN D [facility] Recurrent major depressive episodes, mild (SNOMED CT 909633036) Active Condition [facility] s/p ivc filter Active Condition [facility] Seborrheic Keratosis Active Condition [facility] Severe protein-calorie malnutrition (Calixto: less than 60 percent of standard weight) Active Condition [facility] Spasticity (SNOMED CT 939492827) Active Condition [facility] Sprains and strains of sacroiliac region (ICD-9-CM 846.9) Active Condition [facility] Urinary Retention Inactive Condition 02/02/2011 [facility] Diagnosis: ICD-10-CM G82.51 Quadriplegia, C1-C4 complete Active Diagnosis [facility] Diagnosis: ICD-10-CM R25.2 Cramp and spasm Active Diagnosis [facility] Diagnosis: ICD-10-CM G82.50 Quadriplegia, unspecified Active Diagnosis [facility] Diagnosis: ICD-10-CM H25.813 Combined forms of age-related cataract, bilateral Active Diagnosis [facility] Diagnosis: ICD-10-CM M62.838 Other muscle spasm Active Diagnosis [facility] Diagnosis: ICD-10-CM Z51.81 Encounter for therapeutic drug level monitoring Active Diagnosis [facility] Diagnosis: ICD-10-CM Z85.828 Personal history of other malignant neoplasm of skin Active Diagnosis [facility] Diagnosis: ICD-10-CM M54.12 Radiculopathy, cervical region Active Diagnosis [facility] Diagnosis: ICD-10-CM Z02.9 Encounter for administrative examinations, unspecified Active Diagnosis [facility] Diagnosis: ICD-10-CM L57.0 Actinic keratosis Active Diagnosis [facility] Diagnosis: ICD-10-CM N31.9 Neuromuscular dysfunction of bladder, unspecified Active Diagnosis [facility] Medications Combined list of outpatient medications from 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Medications provided include 1) outpatient medications from the last 15 months, and 2) patient-reported medications. Medication Details Route Status Patient Instructions Prescription Expires Prescription Number Last Dispense Date Ordering Provider Order Date Order Qty Source ACETAMINOPH EN 500MG TAB TAKE TWO TABLETS BY MOUTH EVERY 6 HOURS NEEDED ORAL ACTIVE SHERICE,KILLIAN H 2019 [facility] ASCORBIC ACID 500MG TAB TAKE ONE TABLET BY MOUTH ONCE A DAY ORAL ACTIVE FANIZZA,T MELIDA 2023 [facility] ASPIRIN 81MG TAB,EC TAKE ONE TABLET BY MOUTH ONCE A DAY ORAL ACTIVE BRIANDA,AP RIL M 2024 [facility] ATORVASTATI N CA 80MG TAB TAKE ONE TABLET BY MOUTH EVERY EVENING ORAL ACTIVE SHERICE,KILLIAN H 2019 [facility] BACLOFEN 2MG/ML (PF) INJ,INTRATH ECAL,AMP,20 ML INJECT 80 MG/40 ML INTRATHE NILTON EVERY 2 MONTHS FOR INTRATHE NERI PUMP (ADMINIS TER IN CLINIC) INTRAT HECAL ACTIVE 03/28/2025 [id number] 5 SAROJ LAMAR M 2023 1 [facility] BACLOFEN 2MG/ML (PF) INJ,INTRATH ECAL,AMP,20 ML INJECT 80 MG/40 ML INTRATHE NILTON EVERY 2 MONTHS FOR INTRATHE NERI PUMP (ADMINIS TER IN CLINIC) INTRAT HECAL DISCONT INUED 03/18/2024 [id number] 4 SAROJ LAMAR M 2022 1 [facility] BISACODYL 10MG/30ML ENEMA,RTL INSERT CONTENTS OF 1 ENEMA RECTALLY TWICE A DAY NEEDED RECTAL ACTIVE Moris GONZALEZ 2024 [facility] CAMPHOR 0.5%/MENTHO L 0.5% LOTION APPLY LIBERALL Y TO AFFECTED AREA(S) THREE TIMES A DAY NEEDED FOR ITCHING - (EXTERNA L USE ONLY) TOPICA L ACTIVE 01/18/2026 [id number] 5 Marcial STONE BBAnastasia RR 2024 450 [facility] CAMPHOR 0.5%/MENTHO L 0.5% LOTION APPLY LIBERALL Y TO AFFECTED AREA(S) THREE TIMES A DAY NEEDED FOR ITCHING - (EXTERNA L USE ONLY) TOPICA L DISCONT INUED (EDIT) 10/03/2025 [id number] 5 PATRICK ARGUELLO S 2024 225 [facility] CARBAMIDE PEROXIDE 6.5%/GLYCER IN SOLN,OTIC INSTILL 4 DROPS IN BOTH EARS THREE TIMES A DAY FOR 5 DAYS FOR EAR WAX BLOCKAGE AURICU LAR (OTIC) 02/14/2025 [id number] 5 SAROJ LAMAR M 2024 15 [facility] CARBOXYMETH YLCELLULOSE NA 1% GEL,OPH 0.4ML INSTILL 1 DROP INTO AFFECTED EYE(S) TWICE A DAY OPHTHA LMIC ACTIVE 11/02/2025 [id number] 5 SA STEPHANIE PRESTON R 2024 120 [facility] CRANBERRY EXTRACT CAP/TAB TAKE 1 CAP/TAB BY MOUTH TWICE A DAY ORAL ACTIVE MANDIRamesh Ceja MELIDA 2023 [facility] DICLOFENAC NA 1% GEL,TOP APPLY 4 GM TO AFFECTED AREA(S) FOUR TIMES A DAY FOR PAIN DO NOT EXCEED MORE THAN 16 GRAMS DAILY TO ANY LOWER EXTREMIT Y JOINT. NOT MORE THAN 8 GRAMS DAILY TO ANY UPPER EXTREMIT Y JOINT. MAX 32GM/DAY OVER ALL JOINTS. (MEASURE DOSE WITH RULER ATTACHED INSIDE BOX) TO NECK DO NOT EXCEED MORE THAN 16 GRAMS DAILY TO ANY LOWER EXTREMIT Y JOINT. NOT MORE THAN 8 GRAMS DAILY TO ANY UPPER EXTREMIT Y JOINT. MAX 32GM/DAY OVER ALL JOINTS. (MEASURE DOSE WITH RULER ATTACHED INSIDE BOX) TO NECK TOPICA L DISCONT INUED 11/16/2024 [id number] 5 SAROJ LAMAR 2024 200 [facility] DICLOFENAC NA 1% GEL,TOP APPLY 4 GM TO AFFECTED AREA(S) FOUR TIMES A DAY FOR PAIN DO NOT EXCEED MORE THAN 16 GRAMS DAILY TO ANY LOWER EXTREMIT Y JOINT. NOT MORE THAN 8 GRAMS DAILY TO ANY UPPER EXTREMIT Y JOINT. MAX 32GM/DAY OVER ALL JOINTS. (MEASURE DOSE WITH RULER ATTACHED INSIDE BOX) TO NECK DO NOT EXCEED MORE THAN 16 GRAMS DAILY TO ANY LOWER EXTREMIT Y JOINT. NOT MORE THAN 8 GRAMS DAILY TO ANY UPPER EXTREMIT Y JOINT. MAX 32GM/DAY OVER ALL JOINTS. (MEASURE DOSE WITH RULER ATTACHED INSIDE BOX) TO NECK TOPICA L 12/24/2024 [id number] 5 SAROJ LAMAR 2024 200 [facility] DICLOFENAC NA 1% GEL,TOP APPLY 4 GM TO AFFECTED AREA(S) FOUR TIMES A DAY DO NOT EXCEED MORE THAN 16 GRAMS DAILY TO ANY LOWER EXTREMIT Y JOINT. NOT MORE THAN 8 GRAMS DAILY TO ANY UPPER EXTREMIT Y JOINT. MAX 32GM/DAY OVER ALL JOINTS. (MEASURE DOSE WITH RULER ATTACHED INSIDE BOX) TO NECK DO NOT EXCEED MORE THAN 16 GRAMS DAILY TO ANY LOWER EXTREMIT Y JOINT. NOT MORE THAN 8 GRAMS DAILY TO ANY UPPER EXTREMIT Y JOINT. MAX 32GM/DAY OVER ALL JOINTS. (MEASURE DOSE WITH RULER ATTACHED INSIDE BOX) TO NECK TOPICA L 02/09/2024 [id number] SAROJ LAMAR Philipp 2023 200 [facility] DICLOFENAC NA 1% GEL,TOP APPLY 4 GM TO AFFECTED AREA(S) FOUR TIMES A DAY NEEDED TOPICA L ACTIVE LAMARSAROJ WHALEN Philipp 2024 [facility] DULOXETINE HCL 30MG CAP,EC TAKE 1 CAPSULE BY MOUTH TWICE A DAY ORAL ACTIVE FANJEROMEF RANK A 2024 [facility] FERROUS SO4 325MG TAB TAKE ONE TABLET BY MOUTH EVERY OTHER DAY ORAL ACTIVE NILAY MAURICE 2020 [facility] FOLIC ACID 1MG TAB TAKE ONE TABLET BY MOUTH ONCE A DAY ORAL ACTIVE NILAY MAURICE D 2020 [facility] GUAIFENESIN 600MG TAB,SA TAKE ONE TABLET BY MOUTH TWICE A DAY NEEDED ORAL ACTIVE SHERICEKILLIAN H 2020 [facility] HALOBETASOL PROPIONATE 0.05% OINT,TOP APPLY LIGHTLY TO AFFECTED AREA(S) TWICE DAILY (EXTERNA L USE ONLY) APPLY TO NEW BITES ON THE SKIN DAILY TOPICA L 10/19/2024 [id number] 5 SAROJ LAMAR M 2024 50 [facility] HEMORRHOIDA L OINT,RTL APPLY SPARINGL Y RECTALLY TWICE DAILY NEEDED FOR RELIEF OF HEMORROI EDWARD DISCOMFO RT. FOR EXTERNAL APPLICAT ION ONLY. RECTAL 02/04/2025 [id number] 4 SAROJ LAMAR M 2023 60 [facility] HYDRALAZINE HCL 50MG TAB TAKE ONE TABLET BY MOUTH TWICE A DAY ORAL ACTIVE FANIZZA,F RANK A 2024 [facility] HYDROCORTIS ONE 2.5% CREAM,TOP APPLY SPARINGL Y TO AFFECTED AREA(S) TWICE DAILY FOR EXTERNAL USE ONLY. TOPICA L 02/14/2025 [id number] JAKIKARY 2023 30 [facility] HYDROXYZINE HCL 25MG TAB TAKE ONE TABLET BY MOUTH THREE TIMES A DAY NEEDED ORAL ACTIVE FANIZZA,F RANK A 2024 [facility] LEVETIRACET AM 750MG TAB TAKE ONE TABLET BY MOUTH TWICE A DAY ORAL ACTIVE FANIZZA,F RANK A 2024 [facility] LOPERAMIDE HCL 2MG CAP TAKE 1 CAPSULE BY MOUTH THREE TIMES A DAY NEEDED ORAL ACTIVE FANIZZA,F RANK A 2024 [facility] MAGNESIUM CITRATE LIQUID,ORAL TAKE 1 BOTTLE BY MOUTH ONCE A DAY NEEDED ORAL ACTIVE FANIZZA,F RANK A 2024 [facility] METHENAMINE HIPPURATE 1GM TAB TAKE ONE TABLET BY MOUTH TWICE A DAY ORAL ACTIVE FANIZZA,T MELIDA 2023 [facility] METOPROLOL TARTRATE 50MG TAB TAKE ONE-HALF TABLET BY MOUTH TWICE A DAY ORAL ACTIVE FANIZZA,T MELIDA 2023 [facility] MICONAZOLE NITRATE 2% CREAM,VAG INSERT APPLICAT ORFUL TOP PRN ACTIVE FANIZZA,F RANK A 2024 [facility] MIRABEGRON 25MG TAB,SA TAKE ONE TABLET BY MOUTH ONCE A DAY ORAL ACTIVE SHERICEKILLIAN H 2019 [facility] NON-FORMULA RY TAB TAKE CAMPHOR- MENTHOL 4-10% CREAM TOP EVERY 4 HOURS NEEDED ACTIVE FANIZZA,F RANK A 2024 [facility] PANTOPRAZOL E NA 40MG TAB,EC TAKE ONE TABLET BY MOUTH TWICE A DAY ORAL ACTIVE FANIZZA,T MELIDA 2023 [facility] POLYETHYLEN E GLYCOL 3350 PWDR,ORAL MIX AND DRINK 1 CAPFUL BY MOUTH ONCE A DAY NEEDED ORAL ACTIVE FANIZZA,T MELIDA 2023 [facility] POLYETHYLEN E GLYCOL 3350 PWDR,ORAL MIX AND DRINK 1 CAPFUL BY MOUTH TWICE A DAY NEEDED ORAL ACTIVE FANIZZA,F RANK A 2024 [facility] POTASSIUM CHLORIDE 20MEQ TAB,SA (DISPERSIBL E) TAKE ONE TABLET BY MOUTH TWICE A DAY ORAL ACTIVE LAMAR,AP RIL M 2024 [facility] PSYLLIUM PWDR,ORAL MIX AND DRINK 1 TEASPOON FUL BY MOUTH ONCE A DAY NEEDED ORAL ACTIVE FANIZZA,F RANK A 2024 [facility] SENNOSIDES 8.6MG TAB TAKE ONE TABLET BY MOUTH TWICE A DAY NEEDED ORAL ACTIVE FANIZZA,F RANK A 2024 [facility] SIMETHICONE 80MG TAB,CHEW CHEW AND SWALLOW ONE TABLET BY MOUTH TWICE A DAY NEEDED ORAL ACTIVE FANIZZA,T MELIDA 2023 [facility] ZINC OXIDE 20% OINT,TOP APPLY SPARINGL Y TO AFFECTED AREA(S) PRN TOPICA L ACTIVE FANIZZA,F RANK A 2024 [facility] Allergies, Adverse Reactions, Alerts Combined list of allergies from Department of Defense and Veterans Affairs facilities. It does not include entries that were removed or entered in error. Substance Category Reaction Severity Reaction type Status Date Reported Comments Source BACTRIM Propensity to adverse reactions to drug (finding) Delirium active 1 [facility] TIZANIDINE Propensity to adverse reactions to drug (finding) active 6 [facility] VENLAFAXINE Propensity to adverse reactions to drug (finding) active 5 [facility] Immunizations Combined list of available immunizations from the Department of Defense and Veterans Affairs facilities. Immunization Series Date Given Administered By Site Reaction Lot Number CVX Code Drug Air Marshal Status Comments Source COVID-19 (PFIZER), MRNA, LNP-S, PF, LEXI-SUCROSE, 30 MCG/0.3 ML (AGES 12+ YEARS) 2023 ISAI CANO Philipp LEFT DELTO ID [id number] 309 complet ed [facility] INFLUENZA, HIGH-DOSE, TRIVALENT, PF 2023 ISAI CANO Philipp RIGHT DELTO ID [id number] A 135 complet ed [facility] PNEUMOCOCCAL CONJUGATE PCV20, POLYSACCHARID E [id number] CONJUGATE, ADJUVANT, PF 2023 HA CARROLL RIGHT DELTO ID [id number] 216 complet ed [facility] RSV, BIVALENT, PROTEIN SUBUNIT RSVPREF, DILUENT RECONSTITUTED , 0.5 ML, PF 2023 HA CARROLL Marcial LEFT DELTO ID [id number] 305 complet ed [facility] COVID-19 (MODERNA), MRNA, LNP-S, PF, 50 MCG/0.5 ML (AGES 12+ YEARS) 1 2022 ISAI CANO Philipp LEFT DELTO ID [id number] 312 complet ed [facility] INFLUENZA, HIGH-DOSE, QUADRIVALENT 2022 ISAI CANO Philipp RIGHT DELTO ID [id number] A 197 complet ed [facility] COVID-19 (PFIZER), MRNA, LNP-S, BIVALENT BOOSTER, PF, 30 MCG/0.3 ML DOSE 1 2021 300 complet ed PFR; [id number]; 3 [facility] INFLUENZA VACCINE, QUADRIVALENT, ADJUVANTED 2021 205 complet ed [facility] COVID-19 (SEAT 4a), MRNA, LNP-S, PF, 30 MCG/0.3 ML DOSE, LEXI-SUCROSE (AGES 12+ YEARS) 3 2021 217 complet ed PFR; [id number]; 2 [facility] TDAP 2021 115 complet ed [facility] INFLUENZA VACCINE, QUADRIVALENT, ADJUVANTED 2020 205 complet ed [facility] ZOSTER RECOMBINANT 2 2020 187 complet ed [facility] ZOSTER RECOMBINANT 1 2020 187 complet ed [facility] COVID-19 (SEAT 4a), MRNA, LNP-S, PF, 30 MCG/0.3 ML DOSE 2 2020 208 complet ed [facility] COVID-19 (SEAT 4a), MRNA, LNP-S, PF, 30 MCG/0.3 ML DOSE 1 2020 208 complet ed [facility] INFLUENZA, INJECTABLE, QUADRIVALENT, PRESERVATIVE FREE 2019 150 complet ed [facility] INFLUENZA, UNSPECIFIED FORMULATION 2018 88 complet ed [facility] INFLUENZA, UNSPECIFIED FORMULATION 1 2018 88 complet ed HISTORICA L INFORMATI ON - FROM OTHER REGISTRY, [facility] INFLUENZA, UNSPECIFIED FORMULATION 2017 88 complet ed [facility] INFLUENZA, INJECTABLE, QUADRIVALENT, PRESERVATIVE FREE 2016 150 complet ed [facility] PNEUMOCOCCAL POLYSACCHARID E [id number] 2016 33 complet ed [facility] INFLUENZA, SEASONAL, INJECTABLE, PRESERVATIVE FREE 2015 140 complet ed Right Deltoid [facility] TD(ADULT) UNSPECIFIED FORMULATION 2015 139 complet ed Left Deltoid [facility] PNEUMOCOCCAL CONJUGATE PCV 13 2015 133 complet ed [facility] PNEUMOCOCCAL POLYSACCHARID E PPV23 1 2014 33 complet ed HISTORICA L INFORMATI ON - FROM OTHER REGISTRY, [facility] INFLUENZA, UNSPECIFIED FORMULATION 2013 88 complet ed [facility] INFLUENZA, UNSPECIFIED FORMULATION 2012 88 complet ed [facility] INFLUENZA, UNSPECIFIED FORMULATION 2010 88 complet ed [facility] INFLUENZA, UNSPECIFIED FORMULATION 2009 88 complet ed [facility] INFLUENZA, UNSPECIFIED FORMULATION 2008 ANITRA KEMP 88 complet ed [facility] INFLUENZA, UNSPECIFIED FORMULATION 2007 ARNOL MANLEY 88 complet ed [facility] INFLUENZA, UNSPECIFIED FORMULATION 2006 88 complet ed [facility] INFLUENZA, UNSPECIFIED FORMULATION 2005 88 complet ed [facility] PNEUMOCOCCAL, UNSPECIFIED FORMULATION 2005 109 complet ed [facility] PNEUMOCOCCAL, UNSPECIFIED FORMULATION 2005 109 complet ed [facility] Results Combined list of recent chemistry, hematology and other laboratory results from Department of Defense and Veterans Affairs, ranging from 15 months to all on record, depending upon the facility. Order Name Results Value Reference Range Date Interpretation Specimen Comments Source B12 COBALAMIN (VITAMIN B12) [MASS/VOLUM E] IN SERUM OR PLASMA 358 pg/mL 213 - 816 10/12 Specimen Type: SERUM No comment entered. Ordering Provider: GRISEL LAMAR Report Released Date/Time: Aug 25, 2024 07:24 PM Reporting Lab: [facility] [id number] Performing Lab: [facility] [id number] [facility] CBC LEUKOCYTES [#/VOLUME] IN BLOOD BY AUTOMATED COUNT 5.9 10*3/u L 3.6 - 11.2 10/12 Specimen Type: BLOOD No comment entered. Ordering Provider: GRISEL LAMAR Report Released Date/Time: Aug 25, 2024 07:24 PM Reporting Lab: [facility] [phone] Performing Lab: [facility] CBC ERYTHROCYTE S [#/VOLUME] IN BLOOD BY AUTOMATED COUNT 3.78 10*6/u L 4.10 - 5.70 10/12 L Specimen Type: BLOOD No comment entered. Ordering Provider: GRISEL LAMAR Report Released Date/Time: Aug 25, 2024 07:24 PM Reporting Lab: [facility] [place] [address] Performing Lab: [facility] DIV[facility] CBC HEMOGLOBIN [MASS/VOLUM E] IN BLOOD 10.7 g/dL 13.1 - 16.8 10/12 L Specimen Type: BLOOD No comment entered. Ordering Provider: GRISEL LAMAR Report Released Date/Time: Aug 25, 2024 07:24 PM Reporting Lab: [facility] [place] [phone] Performing Lab: [facility] DIVISION CBC HEMATOCRIT [VOLUME FRACTION] OF BLOOD 34.1 38.2 - 48.4 10/12 L Specimen Type: BLOOD No comment entered. Ordering Provider: GRISEL LAMAR Report Released Date/Time: Aug 25, 2024 07:24 PM Reporting Lab: [facility] [place] [address] Performing Lab: [facility] [facility] CBC MCV [ENTITIC VOLUME] BY AUTOMATED COUNT 90.2 fL 80.0 - 100.0 10/12 Specimen Type: BLOOD No comment entered. Ordering Provider: GRISEL LAMAR Report Released Date/Time: Aug 25, 2024 07:24 PM Reporting Lab: [facility] [place] [address] Performing Lab: [facility] [facility] CBC MCH [ENTITIC MASS] BY AUTOMATED COUNT 28.3 pg 27.0 - 34.0 10/12 Specimen Type: BLOOD No comment entered. Ordering Provider: GRISEL LAMAR Report Released Date/Time: Aug 25, 2024 07:24 PM Reporting Lab: [facility] [place] [address] Performing Lab: [facility] DIV[facility] CBC MCHC [MASS/VOLUM E] BY AUTOMATED COUNT 31.4 g/dL 33.0 - 36.0 10/12 L Specimen Type: BLOOD No comment entered. Ordering Provider: GRISEL LAMAR Report Released Date/Time: Aug 25, 2024 07:24 PM Reporting Lab: [facility] [place] [address] Performing Lab: [facility] [facility] CBC PLATELETS [#/VOLUME] IN BLOOD BY AUTOMATED COUNT 219 10*3/u L 150 - 400 10/12 Specimen Type: BLOOD No comment entered. Ordering Provider: GRISEL LAMAR Report Released Date/Time: Aug 25, 2024 07:24 PM Reporting Lab: [facility] [place] [address] Performing Lab: [facility] [facility] CBC PLATELET MEAN VOLUME [ENTITIC VOLUME] IN BLOOD BY AUTOMATED COUNT 10.5 fL 7.5 - 11.2 10/12 Specimen Type: BLOOD No comment entered. Ordering Provider: GRISEL LAMAR Report Released Date/Time: Aug 25, 2024 07:24 PM Reporting Lab: [facility] [place] [address] Performing Lab: [facility] DIVISION CBC ERYTHROCYTE DISTRIBUTIO N WIDTH [RATIO] BY AUTOMATED COUNT 15.9 11.8 - 15.1 10/12 H Specimen Type: BLOOD No comment entered. Ordering Provider: GRISEL LAMAR Report Released Date/Time: Aug 25, 2024 07:24 PM Reporting Lab: [facility] [place] [address] Performing Lab: [facility] DIVISION CBC LYMPHOCYTES /100 LEUKOCYTES IN BLOOD BY AUTOMATED COUNT 10/12 Specimen Type: BLOOD No comment entered. Ordering Provider: GRISEL LAMAR Report Released Date/Time: Aug 25, 2024 07:24 PM Reporting Lab: [facility] [place] [address] Performing Lab: [facility] DIVISION CBC MONOCYTES/1 00 LEUKOCYTES IN BLOOD BY AUTOMATED COUNT 10/12 Specimen Type: BLOOD No comment entered. Ordering Provider: GRISEL LAMAR Report Released Date/Time: Aug 25, 2024 07:24 PM Reporting Lab: [facility] [place] [address] Performing Lab: [facility] [facility] CBC NEUTROPHILS /100 LEUKOCYTES IN BLOOD BY AUTOMATED COUNT 76 10/12 Specimen Type: BLOOD No comment entered. Ordering Provider: GRISEL LAMAR Report Released Date/Time: Aug 25, 2024 07:24 PM Reporting Lab: [facility] [place] [address] Performing Lab: [facility] [facility] CBC EOSINOPHILS /100 LEUKOCYTES IN BLOOD BY AUTOMATED COUNT 2 10/12 Specimen Type: BLOOD No comment entered. Ordering Provider: GRISEL LAMAR Report Released Date/Time: Aug 25, 2024 07:24 PM Reporting Lab: [facility] [place] [address] Performing Lab: [facility] [facility] CBC BASOPHILS/1 00 LEUKOCYTES IN BLOOD BY AUTOMATED COUNT 1 10/12 Specimen Type: BLOOD No comment entered. Ordering Provider: GRISEL LAMAR Report Released Date/Time: Aug 25, 2024 07:24 PM Reporting Lab: [facility] [place] [address] Performing Lab: [facility] [facility] CBC LYMPHOCYTES [#/VOLUME] IN BLOOD BY AUTOMATED COUNT 0.61 10*3/u L 0.77 - 4.50 10/12 L Specimen Type: BLOOD No comment entered. Ordering Provider: GRISEL LAMAR Report Released Date/Time: Aug 25, 2024 07:24 PM Reporting Lab: [facility] [place] [address] Performing Lab: [facility] DIVISION CBC MONOCYTES [#/VOLUME] IN BLOOD BY AUTOMATED COUNT 0.61 10*3/u L 0.19 - 0.80 10/12 Specimen Type: BLOOD No comment entered. Ordering Provider: GRISEL LAMAR Report Released Date/Time: Aug 25, 2024 07:24 PM Reporting Lab: [facility] [place] [address] Performing Lab: [facility] DIVISION CBC NEUTROPHILS [#/VOLUME] IN BLOOD BY AUTOMATED COUNT 4.52 10*3/u L 2.10 - 8.00 10/12 Specimen Type: BLOOD No comment entered. Ordering Provider: GRISEL LAMAR Report Released Date/Time: Aug 25, 2024 07:24 PM Reporting Lab: [facility] [place] [address] Performing Lab: [facility] DIVISION CBC EOSINOPHILS [#/VOLUME] IN BLOOD BY AUTOMATED COUNT 0.14 10*3/u L 0.00 - 0.60 10/12 Specimen Type: BLOOD No comment entered. Ordering Provider: GRISEL LAMAR Report Released Date/Time: Aug 25, 2024 07:24 PM Reporting Lab: [facility] [place] [address] Performing Lab: [facility] DIVISION CBC BASOPHILS [#/VOLUME] IN BLOOD BY AUTOMATED COUNT 0.03 10*3/u L 0.00 - 0.20 10/12 Specimen Type: BLOOD No comment entered. Ordering Provider: GRISEL LAMAR Report Released Date/Time: Aug 25, 2024 07:24 PM Reporting Lab: [facility] [place] [address] Performing Lab: [facility] DIVISION COMPREHEN SIVE METABOLIC PANEL CREATININE [MASS/VOLUM E] IN SERUM OR PLASMA 0.95 mg/dL 0.70 - 1.30 10/12 Specimen Type: PLASMA Comment: No hemolysis noted. Ordering Provider: GRISEL LAMAR Report Released Date/Time: Aug 25, 2024 07:24 PM Reporting Lab: [facility] [place] [address] Performing Lab: [facility] DIVISION COMPREHEN SIVE METABOLIC PANEL UREA NITROGEN [MASS/VOLUM E] IN SERUM OR PLASMA 21.3 mg/dL 9.0 - 25.0 10/12 Specimen Type: PLASMA Comment: No hemolysis noted. Ordering Provider: GRISEL LAMAR Report Released Date/Time: Aug 25, 2024 07:24 PM Reporting Lab: [facility] [place] [address] Performing Lab: [facility] DIVISION COMPREHEN SIVE METABOLIC PANEL GLUCOSE [MASS/VOLUM E] IN SERUM OR PLASMA 81 mg/dL 72 - 99 10/12 Specimen Type: PLASMA Comment: No hemolysis noted. Ordering Provider: GRISEL LAMAR Report Released Date/Time: Aug 25, 2024 07:24 PM Reporting Lab: [facility] [place] [address] Performing Lab: [facility] DIVISION COMPREHEN SIVE METABOLIC PANEL SODIUM [MOLES/VOLU ME] IN SERUM OR PLASMA 140 meq/L 136 - 145 10/12 Specimen Type: PLASMA Comment: No hemolysis noted. Ordering Provider: GRISEL LAMAR Report Released Date/Time: Aug 25, 2024 07:24 PM Reporting Lab: [facility] [place] [address] Performing Lab: [facility] DIVISION COMPREHEN SIVE METABOLIC PANEL POTASSIUM [MOLES/VOLU ME] IN SERUM OR PLASMA 4.0 meq/L 3.5 - 5.0 10/12 Specimen Type: PLASMA Comment: No hemolysis noted. Ordering Provider: GRISEL LAMAR Report Released Date/Time: Aug 25, 2024 07:24 PM Reporting Lab: [facility] [place] [address] Performing Lab: [facility] DIVISION COMPREHEN SIVE METABOLIC PANEL CHLORIDE [MOLES/VOLU ME] IN SERUM OR PLASMA 107 meq/L 98 - 107 10/12 Specimen Type: PLASMA Comment: No hemolysis noted. Ordering Provider: GRISEL LAMAR Report Released Date/Time: Aug 25, 2024 07:24 PM Reporting Lab: [facility] [place] [address] Performing Lab: [facility] DIVISION COMPREHEN SIVE METABOLIC PANEL CARBON DIOXIDE, TOTAL [MOLES/VOLU ME] IN SERUM OR PLASMA 27 meq/L 22 - 31 10/12 Specimen Type: PLASMA Comment: No hemolysis noted. Ordering Provider: GRISEL LAMAR Report Released Date/Time: Aug 25, 2024 07:24 PM Reporting Lab: [facility] [place] [address] Performing Lab: [facility] DIVISION COMPREHEN SIVE METABOLIC PANEL CALCIUM [MASS/VOLUM E] IN SERUM OR PLASMA 8.4 mg/dL 8.4 - 10.4 10/12 Specimen Type: PLASMA Comment: No hemolysis noted. Ordering Provider: GRISEL LAMAR Report Released Date/Time: Aug 25, 2024 07:24 PM Reporting Lab: [facility] [place] [address] Performing Lab: [facility] DIVISION COMPREHEN SIVE METABOLIC PANEL PROTEIN [MASS/VOLUM E] IN SERUM OR PLASMA 6.1 g/dL 6.0 - 8.6 10/12 Specimen Type: PLASMA Comment: No hemolysis noted. Ordering Provider: GRISEL LAMAR Report Released Date/Time: Aug 25, 2024 07:24 PM Reporting Lab: [facility] [place] [address] Performing Lab: [facility] COMPREHEN SIVE METABOLIC PANEL ALBUMIN [MASS/VOLUM E] IN SERUM OR PLASMA 3.3 g/dL 3.4 - 5.0 10/12 L Specimen Type: PLASMA Comment: No hemolysis noted. Ordering Provider: GRISEL LAMAR Report Released Date/Time: Aug 25, 2024 07:24 PM Reporting Lab: [facility] [place] [address] Performing Lab: [facility] DIVISION COMPREHEN SIVE METABOLIC PANEL BILIRUBIN.T OTAL [MASS/VOLUM E] IN SERUM OR PLASMA 0.5 mg/dL 0.2 - 1.2 10/12 Specimen Type: PLASMA Comment: No hemolysis noted. Ordering Provider: GRISEL LAMAR Report Released Date/Time: Aug 25, 2024 07:24 PM Reporting Lab: [facility] [place] [address] Performing Lab: [facility] DIVISION COMPREHEN SIVE METABOLIC PANEL ALKALINE PHOSPHATASE [ENZYMATIC ACTIVITY/VO LUME] IN SERUM OR PLASMA 90 U/L 40 - 150 10/12 Specimen Type: PLASMA Comment: No hemolysis noted. Ordering Provider: GRISEL LAMAR Report Released Date/Time: Aug 25, 2024 07:24 PM Reporting Lab: [facility] [place] [address] Performing Lab: [facility] DIVISION COMPREHEN SIVE METABOLIC PANEL ASPARTATE AMINOTRANSF ERASE [ENZYMATIC ACTIVITY/VO LUME] IN SERUM OR PLASMA 34 U/L 5 - 34 10/12 Specimen Type: PLASMA Comment: No hemolysis noted. Ordering Provider: GRISEL LAMAR Report Released Date/Time: Aug 25, 2024 07:24 PM Reporting Lab: [facility] [place] [address] Performing Lab: [facility] DIVISION COMPREHEN SIVE METABOLIC PANEL ALANINE AMINOTRANSF ERASE [ENZYMATIC ACTIVITY/VO LUME] IN SERUM OR PLASMA 20 U/L 8 - 40 10/12 Specimen Type: PLASMA Comment: No hemolysis noted. Ordering Provider: GRISEL LAMAR Report Released Date/Time: Aug 25, 2024 07:24 PM Reporting Lab: [facility] [place] [address] Performing Lab: [facility] DIVISION COMPREHEN SIVE METABOLIC PANEL GLOMERULAR FILTRATION RATE/1.73 SQ M.PREDICTED [VOLUME RATE/AREA] IN SERUM, PLASMA OR BLOOD BY CREATININE- BASED FORMULA (CKD-EPI 2020) 83.47 60 10/12 Specimen Type: PLASMA Comment: No hemolysis noted. Ordering Provider: GRISEL LAMAR Report Released Date/Time: Aug 25, 2024 07:24 PM Reporting Lab: [facility] [phone] Performing Lab: [facility]1 [facility] [phone] [place] [address] CYSTATIN C EGFR PANELS (STL-PB-M A) CYSTATIN C [MASS/VOLUM E] IN SERUM OR PLASMA 1.70 mg/L 0.57 - 1.80 10/12 Specimen Type: PLASMA Comment: Choice of which of the reported eGFR values to use depends on the clinical situation. For example, for patients with severe muscle wasting or reduced muscle mass, eGFR calculated using the 2012 cystatin equation may be preferred. Ordering Provider: GRISEL LAMAR Report Released Date/Time: Aug 25, 2024 07:24 PM Reporting Lab: [address] [address] Performing Lab: [address] [address] [facility] CYSTATIN C EGFR PANELS (STL-PB-M A) CKD-EPI CYSTATIN C (2011) 36.2 60 10/12 Specimen Type: PLASMA Comment: Choice of which of the reported eGFR values to use depends on the clinical situation. For example, for patients with severe muscle wasting or reduced muscle mass, eGFR calculated using the 2012 cystatin equation may be preferred. Ordering Provider: GRISEL LAMAR Report Released Date/Time: Aug 25, 2024 07:24 PM Reporting Lab: [address] [address] Performing Lab: [address] [address] [facility] CYSTATIN C EGFR PANELS (STL-PB-M A) CKD-EPI CREAT-CYSC (2020) 54.4 60 10/12 Specimen Type: PLASMA Comment: Choice of which of the reported eGFR values to use depends on the clinical situation. For example, for patients with severe muscle wasting or reduced muscle mass, eGFR calculated using the 2011 cystatin equation may be preferred. Ordering Provider: GRISEL LAMAR Report Released Date/Time: Aug 25, 2024 07:24 PM Reporting Lab: [address] [address] Performing Lab: [address] [phone] CYSTATIN C EGFR PANELS ([facility]) CREATININE [MASS/VOLUM E] IN SERUM OR PLASMA 0.95 mg/dL 0.7 - 1.3 10/12 Specimen Type: PLASMA Comment: Choice of which of the reported eGFR values to use depends on the clinical situation. For example, for patients with severe muscle wasting or reduced muscle mass, eGFR calculated using the 2011 cystatin equation may be preferred. Ordering Provider: GRISEL LAMAR Report Released Date/Time: Aug 25, 2024 07:24 PM Reporting Lab: [address] [address] Performing Lab: [address] [address] [facility] FOLATE ([facility]) FOLATE [MASS/VOLUM E] IN SERUM OR PLASMA 17.6 ng/mL 7 - 10/12 Specimen Type: SERUM No comment entered. Ordering Provider: GRISEL LAMAR Report Released Date/Time: Aug 25, 2024 07:24 PM Reporting Lab: [facility] [address] Performing Lab: [facility] [phone] [facility] HGA1C HEMOGLOBIN A1C/HEMOGLO BIN.TOTAL IN BLOOD 5.8 4.0 - 6.0 10/12 Specimen Type: BLOOD No comment entered. Ordering Provider: GRISEL LAMAR Report Released Date/Time: Aug 25, 2024 07:24 PM Reporting Lab: [facility] [place] [phone] Performing Lab: [facility] [phone] DIVISION LIPID PANEL (STL) CHOLESTEROL [MASS/VOLUM E] IN SERUM OR PLASMA 105 mg/dL 0 - 200 10/12 Specimen Type: PLASMA Comment: No hemolysis noted. Ordering Provider: GRISEL LAMAR Report Released Date/Time: Aug 25, 2024 07:24 PM Reporting Lab: [facility] [place] [address] Performing Lab: [facility] LIPID PANEL (STL) TRIGLYCERID E [MASS/VOLUM E] IN SERUM OR PLASMA 71 mg/dL 0 - 150 10/12 Specimen Type: PLASMA Comment: No hemolysis noted. Ordering Provider: GRISEL LAMAR Report Released Date/Time: Aug 25, 2024 07:24 PM Reporting Lab: [facility] [phone] Performing Lab: [facility] LIPID PANEL (STL) CHOLESTEROL IN LDL [MASS/VOLUM E] IN SERUM OR PLASMA BY CALCULATION 63 mg/dL 10/12 Specimen Type: PLASMA Comment: No hemolysis noted. Ordering Provider: GRISEL LAMAR Report Released Date/Time: Aug 25, 2024 07:24 PM Reporting Lab: [facility] [place] [address] Performing Lab: [facility] [place] [phone] [place] [address] DIVISION LIPID PANEL (STL) CHOLESTEROL IN HDL [MASS/VOLUM E] IN SERUM OR PLASMA 28 mg/dL 40 10/12 L Specimen Type: PLASMA Comment: No hemolysis noted. Ordering Provider: GRISEL LAMAR Report Released Date/Time: Aug 25, 2024 07:24 PM Reporting Lab: [facility] [address] Performing Lab: [facility] [place] [phone] DIVISION PREALBUMI N PREALBUMIN [MASS/VOLUM E] IN SERUM OR PLASMA 15 mg/dL 16 - 42 10/12 L Specimen Type: SERUM No comment entered. Ordering Provider: GRISEL LAMAR Report Released Date/Time: Aug 25, 2024 07:24 PM Reporting Lab: [place] [address] Performing Lab: [place] [id number] DIVISION TSH W/ REFLEX FT4 (L) THYROTROPIN [UNITS/VOLU ME] IN SERUM OR PLASMA 4.224 u[IU]/ mL 0.470 - 5.000 10/12 Specimen Type: PLASMA No comment entered. Ordering Provider: GRISEL LAMAR Report Released Date/Time: Aug 25, 2024 07:24 PM Reporting Lab: [facility] [phone] Performing Lab: [facility] [phone] [place] [address] DIVISION VITAMIN D, 25-HYDROX Y 25-HYDROXYV ITAMIN D3 [MASS/VOLUM E] IN SERUM OR PLASMA 35.2 ng/mL 30 - 96 10/12 Specimen Type: SERUM No comment entered. Ordering Provider: GRISEL LAMAR Report Released Date/Time: Aug 25, 2024 07:24 PM Reporting Lab: [facility] [phone] Performing Lab: [facility] [place] [facility] [phone] [facility] Vital Signs Combined list of inpatient and outpatient Vital Signs from Department of Defense and Veterans Affairs, ranging from 12 months to all on record, depending upon the facility. Vital Sign Value Date Comments Source SYSTOLIC BLOOD PRESSURE 122 10/19/2024 14:25:03 [facility] DIASTOLIC BLOOD PRESSURE 67 10/19/2024 14:25:03 [facility] PULSE OXIMETRY 94 10/19/2024 14:25:03 [facility] PAIN 8 10/19/2024 14:25:03 [facility] TEMPERATURE 98 10/19/2024 14:25:03 [facility] PULSE 69 10/19/2024 14:25:03 [facility] RESPIRATION 16 10/19/2024 14:25:03 [facility] SYSTOLIC BLOOD PRESSURE 121 10/12/2024 09:25:47 [facility] DIASTOLIC BLOOD PRESSURE 63 10/12/2024 09:25:47 [facility] PULSE OXIMETRY 94 10/12/2024 09:25:47 [facility] WEIGHT 173 10/12/2024 09:25:47 [facility] BMI 22 kg/m2 10/12/2024 09:25:47 [facility] PAIN 7 10/12/2024 09:25:47 [facility] TEMPERATURE 98.3 10/12/2024 09:25:47 [facility] PULSE 76 10/12/2024 09:25:47 . [facility] RESPIRATION 15 10/12/2024 09:25:47 [facility] Encounters Combined list of: 1) Encounters from Department of Veterans Affairs facilities going backup to the last 18 months, not all VA inpatient encounters are included; 2) Encounters from the Department of Defense facilities going backup to 280 months. Location Location Details Encounter Type Encounter Number Reason For Visit Attending Provider ADM Date DC Date Status Disposition Source [facility] Outpatient Encounter [id number] 08/25 [facility] Outpatient Encounter [id number] 08/31 [facility] Outpatient Encounter [id number] 09/15 [facility] Outpatient Encounter [id number] 09/18 [facility] Outpatient Encounter [id number] 09/19 [facility] OFFICE O/P EST MOD 30 MIN [id number] Diagnos is: ICD-10- CM G82.51 Quadrip legia, C1-C4 complet e LAMAR,APR [place] M 09/21 [facility] DIV[facility] OFFICE O/P EST HI 40 MIN [id number] Diagnos is: ICD-10- CM G82.51 Quadrip legia, C1-C4 complet e WOOD,KATHAR INE 09/26 [facility] Outpatient Encounter [id number] 09/26 [facility] QNHP OL DIG ASSMT&MGMT 5-10 [id number] Diagnos is: ICD-10- CM R25.2 Cramp and spasm LEONID SPRAGUE IA H 09/30 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 , unspeci fied BRIANDA,APR [place] M 10/13 [facility] WHEELCHAIR MNGMENT TRAINING [id number] Diagnos is: ICD-10- CM G82.51 Quadrip legia, C1-C4 complet e Javon PORTILLO M 10/13 [facility] Outpatient Encounter [id number] 10/13 [facility] OT EVAL LOW COMPLEX 30 MIN [id number] Diagnos is: ICD-10- CM G82.50 Quadrip legia, unspeci fied WEN JEFF K 10/13 [facility] OFFICE O/P EST LOW 20 MIN [id number] Diagnos is: ICD-10- CM G82.51 Quadrip legia, C1-C4 complet e DANIAL CARROLL A 10/13 [facility] CASE MANAGEMENT [id number] Diagnos is: ICD-10- CM G82.51 Quadrip legia, C1-C4 complet e ISIDRAFARIBA Glover A 10/13 [facility] PSYCH DIAGNOSTIC EVALUATION [id number] Diagnos is: ICD-10- CM G82.51 Quadrip legia, C1-C4 complet e NOLA STEPHENS S 10/13 [facility] OFFICE O/P EST LOW 20 MIN [id number] Diagnos is: ICD-10- CM G82.51 Quadrip legia, C1-C4 complet e Yong DUNCAN 10/13 [facility] MED NUTRITION INDIV SUBSEQ [id number] Diagnos is: ICD-10- CM G82.51 Quadrip legia, C1-C4 complet e BERTO BAKER A 10/13 [facility] OFFICE O/P EST HI 40 MIN [id number] Diagnos is: ICD-10- CM G82.51 Quadrip legia, C1-C4 complet e WOODHEATHER INE 10/13 [facility] Outpatient Encounter [id number] CATARINA HASSAN TTHEW C 10/13 [facility] Outpatient Encounter [id number] 11/14 [facility] WHEEL[facility] MNGMENT TRAINING [id number] Diagnos is: ICD-10- CM G82.51 Quadrip legia, C1-C4 complet e Javon PORTILLO 11/18 [facility] OFFICE O/P EST LOW 20 MIN [id number] Diagnos is: ICD-10- CM M62.838 Other muscle spasm LAMAR,OCT [place] M 11/23 [facility] MED NUTRITION INDIV SUBSEQ [id number] Diagnos is: ICD-10- CM G82.51 Quadrip legia, C1-C4 complet e WEATHERSARAH TBERTO A 11/23 [facility] WHEELCHAIR MNGMENT TRAINING [id number] Diagnos is: ICD-10- CM G82.51 Quadrip legia, C1-C4 complet e Javon PORTILLO 11/23 [facility] Outpatient Encounter [id number] 11/24 [facility] Outpatient Encounter [id number] TRIPANN RI 11/24 [facility] Outpatient Encounter [id number] Diagnos is: ICD-10- CM G82.51 Quadrip legia, C1-C4 complet e SANDRA ASIF 12/07 [facility] Outpatient Encounter [id number] 12/14 [facility] Outpatient Encounter [id number] 12/19 [facility] OFFICE O/P EST HI 40 MIN [id number] Diagnos is: ICD-10- CM G82.51 Quadrip legia, C1-C4 complet e HEATHER WOOD INE 12/26 [facility] Outpatient Encounter [id number] 12/26 [facility] QNHP OL DIG ASSMT&MGMT 5-10 [id number] Diagnos is: ICD-10- CM R25.2 Cramp and spasm LEONID SPRAGUE H 12/30 [facility] Outpatient Encounter [id number] 01/02 [facility] Outpatient Encounter [id number] 01/09 [facility] Outpatient Encounter [id number] 01/11 [facility] OFFICE O/P EST LOW 20 MIN [id number] Diagnos is: ICD-10- CM L57.0 Actinic keratos is Yanelis SINCLAIR 01/17 [facility] Outpatient Encounter [id number] 01/17 [facility] Outpatient Encounter [id number] 01/23 [facility] OFFICE O/P EST MOD 30 MIN [id number] Diagnos is: ICD-10- CM G82.51 Quadrip legia, C1-C4 complet e DARCI CANO M 01/27 [facility] Outpatient Encounter [id number] ANN DOMINIQUE RI 01/30 [facility] Outpatient Encounter [id number] DANNY BOOTH 02/03 [facility] HC PRO PHONE CALL 5-10 MIN [id number] Diagnos is: ICD-10- CM Z02.9 Encount er for adminis trative examina tions, unspeci fied ZOFIA,CY NTHIA A 02/06 [facility] Outpatient Encounter [id number] 02/07 [facility] NRV CNDJ TEST 7-8 STUDIES [id number] Diagnos is: ICD-10- CM M54.12 Radicul opathy, cervica l region FAIBISOMOJGAN, MAYCOL J 02/07 [facility] Outpatient Encounter [id number] 02/07 [facility] MED NUTRITION INDIV SUBSEQ [id number] Diagnos is: ICD-10- CM G82.51 Quadrip legia, C1-C4 complet e BERTO BAKER A 02/08 [facility] Outpatient Encounter [id number] Diagnos is: ICD-10- CM G82.51 Quadrip legia, C1-C4 complet e HEATHER WOOD INE 02/08 [facility] Outpatient Encounter [id number] ARELIS STOVER 02/13 [facility] HC PRO PHONE CALL 5-10 MIN [id number] Diagnos is: ICD-10- CM G82.51 Quadrip legia, C1-C4 complet e SAVANNAROBERT A 02/14 [facility] Outpatient Encounter [id number] 02/22 [facility] Outpatient Encounter [id number] 02/24 [facility] Outpatient Encounter [id number] 03/02 [facility] Outpatient Encounter [id number] 03/16 [facility] Outpatient Encounter [id number] 03/23 [facility] QNHP OL DIG ASSMT&MGMT 5-10 [id number] Diagnos is: ICD-10- CM M62.838 Other muscle spasm FR THIERRY GONZALEZ A 03/27 [facility] Outpatient Encounter [id number] 03/30 [facility] OFFICE O/P EST MOD 30 MIN [id number] Diagnos is: ICD-10- CM G82.51 Quadrip legia, C1-C4 complet e DARCI CANO 03/31 [facility] Outpatient Encounter [id number] ANN DOMINIQUE 04/06 [facility] Outpatient Encounter [id number] Diagnos is: ICD-10- CM G82.51 Quadrip legia, C1-C4 complet e SANDRA ASIF 04/07 [facility] Outpatient Encounter [id number] ALEXIS DEVLIN 04/12 [facility] HC PRO PHONE CALL 5-10 MIN [id number] Diagnos is: ICD-10- CM G82.51 Quadrip legia, C1-C4 complet e BERTO BAKER 05/17 [facility] Outpatient Encounter [id number] 05/22 [facility] Outpatient Encounter [id number] 05/22 [facility] Outpatient Encounter [id number] 05/29 [facility] Outpatient Encounter [id number] 05/31 [facility] MED NUTRITION INDIV SUBSEQ [id number] Diagnos is: ICD-10- CM G82.51 Quadrip legia, C1-C4 complet e WEATHERHOL T,BERTO A 05/31 [facility] Outpatient Encounter [id number] ANN DOMINIQUE RI 06/02 [facility] Outpatient Encounter [id number] AALIYAH SANCHEZ C 07/07 [facility] Outpatient Encounter [id number] [id number] ANN DOMINIQUE RI 07/13 [facility] Outpatient Encounter [id number] CHELSEA CAMPOS 07/19 [facility] Outpatient Encounter [id number] [id number] 07/20 [facility] Outpatient Encounter [id number] 07/25 [facility] Outpatient Encounter [id number] 07/25 [facility] OFFICE O/P EST HI 40 MIN [id number] [id number] 316 Diagnos is: ICD-10- CM G82.51 Quadrip legia, C1-C4 complet e DARCI CANO M 08/02 [facility] Outpatient Encounter [id number] 08/11 [facility] Outpatient Encounter [id number] CHELSEA CAMPOS N 08/15 [facility] MED NUTRITION INDIV SUBSEQ [id number] [id number] Diagnos is: ICD-10- CM G82.51 Quadrip legia, C1-C4 complet e WEATHERSARAH RameshBERTO A 08/[address] 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 PH1 ASSMT&MGMT NQHP 11-20 [id number] [id number] 126 Diagnos is: ICD-10- CM G82.51 Quadrip legia, C1-C4 complet e PORTILLO,J OHANNA M 09/19 [facility] Outpatient Encounter [id number] [id number] 09/20 [facility] Outpatient Encounter [id number] 09/27 [facility] Outpatient Encounter [id number] [id number] 10/02 [facility] NQHP OL DIG ASSMT&MGMT 21+ 14825-0.65 [id number] 844 Diagnos is: ICD-10- CM Z51.81 Encount er for therape utic drug level monitor FR THIERRY Mata A 10/02 [facility] OFFICE O/P EST MOD 30 MIN 66135-2.65 [id number] 355 Diagnos is: ICD-10- CM G82.51 Quadrip legia, C1-C4 complet e DARCI CANO M 10/03 [facility] Outpatient Encounter [id number] [id number] 10/04 [facility] Outpatient Encounter [id number] [id number] 10/09 [facility] Outpatient Encounter [id number] [id number] 10/12 [facility] WHEELCHAIR MNGMENT TRAINING 90652-2.65 [id number] 682 Diagnos is: ICD-10- CM G82.51 Quadrip legia, C1-C4 complet e BANDARJavon LEE M 10/12 [facility] OT EVAL HIGH COMPLEX 60 MIN 50246-1.65 [id number] 148 Diagnos is: ICD-10- CM G82.50 Quadrip legia, unspeci WEN Richardson 10/12 [facility] VITAL SIGNS RECORDED [id number] [id number] Diagnos is: ICD-10- CM G82.51 Quadrip legia, C1-C4 complet e SAVANNARU TH A 10/12 [facility] CASE MANAGEMENT 70215-8.65 [id number] 783 Diagnos is: ICD-10- CM G82.51 Quadrip legia, C1-C4 complet e FARIBA MINER E A 10/12 [facility] PSYCH DIAGNOSTIC EVALUATION 37410-0.65 [id number] 789 Diagnos is: ICD-10- CM G82.51 Quadrip legia, C1-C4 complet e NOLA STEPHENS S 10/12 [facility] OFFICE O/P EST LOW 20 MIN 18029-4.65 [id number] 693 Diagnos is: ICD-10- CM G82.51 Quadrip legia, C1-C4 complet e Yong DUNCAN M 10/12 [facility] MED NUTRITION INDIV SUBSEQ [id number] [id number] Diagnos is: ICD-10- CM G82.51 Quadrip legia, C1-C4 complet e WEATHERSARAH TBERTO A 10/12 [facility] OFFICE O/P EST HI 40 MIN 72459-7.65 [id number] 309 Diagnos is: ICD-10- CM G82.51 Quadrip legia, C1-C4 complet e HEATHER WOOD INE 10/12 [facility] Outpatient Encounter [id number] [id number] 10/12 [facility] OFFICE O/P EST HI 40 MIN 40976-2.65 [id number] Diagnos is: ICD-10- CM M62.838 Other muscle spasm LAMAR,APR IL M 10/12 [facility] Outpatient Encounter [id number] [id number] 10/13 [facility] Outpatient Encounter [id number] [id number] EVELIA CAMPOSEKA N 10/15 [facility] Outpatient Encounter [id number] [id number] 10/17 [facility] OFFICE O/P EST HI 40 MIN 77914-3.65 [id number] 652 Diagnos is: ICD-10- CM G82.51 Quadrip legia, C1-C4 complet e HEATHER WOOD INE 10/19 [facility] Outpatient Encounter [id number] [id number] 10/19 [facility] NQHP OL DIG ASSMT&MGMT 5-10 11219-4.65 [id number] 482 Diagnos is: ICD-10- CM R25.2 Cramp and spasm LEONID SPRAGUE H 10/19 [facility] COMMUNITY/ WORK REINTEGRAT ION 79238-1.65 [id number] 468 Diagnos is: ICD-10- CM G82.50 Quadrip legia, unspeci fied SANDRA ASIF 10/19 [facility] COMPRE OPH EXAM EST PT 1/> 02575-5.65 [id number] 417 Diagnos is: ICD-10- CM H25.813 Combine d forms of age-rel ated catarac t, bilater al KARY,AYO CINTIA R 11/01 [facility] Outpatient Encounter [id number] [id number] ALICIAGEOFFREY NN 11/15 [facility] Outpatient Encounter [id number] [id number] BRIANDA,MELANI [place] M 11/23 [facility] Outpatient Encounter [id number] [id number] 11/24 [facility] PH1 ASSMT&MGMT NQHP 5-10 34222-0.65 [id number] 792 Diagnos is: ICD-10- CM G82.50 Quadrip legia, unspeci fied WEN JEFF 11/28 [facility] MED NUTRITION INDIV SUBSEQ [id number] [id number] Diagnos is: ICD-10- CM G82.51 Quadrip legia, C1-C4 complet e WEATHERBERTO WHEELER 11/29 [facility] OFFICE O/P EST MOD 30 MIN 04769-3.65 [id number] 051 Diagnos is: ICD-10- CM G82.51 Quadrip legia, C1-C4 complet e DARCI CANO M 12/06 [facility] Outpatient Encounter [id number] [id number] 12/11 [facility] Outpatient Encounter [id number] [id number] 12/26 [facility] OFFICE O/P EST HI 40 MIN 12849-3.65 [id number] 341 Diagnos is: ICD-10- CM G82.51 Quadrip legia, C1-C4 complet e HEATHER WOOD 01/11 [facility] Outpatient Encounter [id number] [id number] 01/11 [facility] NQHP OL DIG ASSMT&MGMT 5-10 39636-5.65 [id number] 224 Diagnos is: ICD-10- CM R25.2 Cramp and spasm LEONID SPRAGUE H 01/12 [facility] PH1 ASSMT&MGMT NQHP 5-10 71730-0.65 [id number] 091 Diagnos is: ICD-10- CM G82.51 Quadrip legia, C1-C4 complet e SANDRA ASIF 01/16 [facility] Outpatient Encounter [id number] [id number] 01/17 [facility] Outpatient Encounter [id number] [id number] 01/17 [facility] Outpatient Encounter [id number] [id number] AALIYAH SANCHEZ RNISHA C 01/26 [facility] PH1 ASSMT&MGMT NQHP 11-20 20573-3.65 [id number] 411 Diagnos is: ICD-10- CM G82.51 Quadrip legia, C1-C4 complet e BERTO BAKER A 02/07 [facility] Outpatient Encounter [id number] [id number] GEOFFREY VARGAS NN 02/09 [facility] Outpatient Encounter [id number] [id number] BRIANDA,MELANI [place] M 02/10 [facility] OFFICE O/P EST HI 40 MIN 75260-7.65 [id number] 622 Diagnos is: ICD-10- CM G82.51 Quadrip legia, C1-C4 complet e DARCI CANO CK M 02/13 [facility] N Social History Combined list of available smoking, tobacco, and other social history from 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 Social History Type Response Date Comment Sourc e Tobacco smoking status NHIS VA-TOBACCO NEVER USED CIGARETTES 10/12/2024 [facility] History of tobacco use VA-TOBACCO NEVER USED OTHER TYPE 10/12/2024 [facility] History of tobacco use VA-TOBACCO NEVER USED 09/27/2023 [facility] History of tobacco use VA-TOBACCO NEVER USED 10/15/2022 [facility] History of tobacco use VA-TOBACCO FORMER USER 10/16/2021 [facility] History of tobacco use VA-TOBACCO QUIT 15 YRS OR MORE 10/10/2020 [facility] History of tobacco use VA-TOBACCO QUIT 5 TO < 15 YRS 10/18/2019 [facility] History of tobacco use VA-TOBACCO FORMER USER 10/04/2018 [facility] History of tobacco use CURRENT TOBACCO USER 10/09/2017 [facility] Philipp O [facility] History of tobacco use ORYX ADMIT TOBACCO SCREEN NO 10/08/2017 [facility] History of tobacco use LIFETIME NON-USER OF TOBACCO 05/31/2016 [facility] History of tobacco use QUIT TOBACCO >7 YEARS AGO 08/13/2014 [facility] History of tobacco use QUIT TOBACCO >7 YEARS AGO 07/24/2014 [facility] History of tobacco use QUIT TOBACCO >7 YEARS AGO 07/19/2013 [facility] History of tobacco use QUIT TOBACCO >7 YEARS AGO 04/26/2012 [facility] History of tobacco use QUIT TOBACCO >7 YEARS AGO 11/25/2011 [facility] History of tobacco use QUIT TOBACCO >7 YEARS AGO 06/26/2011 [facility] History of tobacco use QUIT TOBACCO >7 YEARS AGO 05/26/2011 [facility] History of tobacco use QUIT TOBACCO >7 YEARS AGO 04/06/2011 [facility] History of tobacco use LIFETIME NON-USER OF TOBACCO 02/26/2011 [facility] History of tobacco use LIFETIME NON-USER OF TOBACCO 02/02/2011 [facility] History of tobacco use LIFETIME NON-USER OF TOBACCO 01/24/2011 [facility] History of tobacco use QUIT TOBACCO >7 YEARS AGO 11/30/2009 [facility] History of tobacco use LIFETIME NON-USER OF TOBACCO 01/20/2008 [facility] History of tobacco use QUIT TOBACCO >7 YEARS AGO 08/02/2006 [facility] History of tobacco use CURRENT NON-TOBACCO USER-HX OF USE 04/11/2006 [facility] Plan of Care List of future care activities from Department of [facility] Affairs facilities. Additional future care activities may be listed in the Assessment and Plan section. Date/Time Care Activity Care Activity Detail Facili ty 04/10/2025 [facility] Advance Directives List of completed, amended, or rescinded Advance Directives on record at Department of [facility] facilities. An actual copy of the Directive is not included. Date Advance Directive Provider Source 10/12/2024 ADVANCE DIRECTIVE RAHEEL MINER [facility] 10/10/2020 ADVANCE DIRECTIVE BARBY ALMAZAN [facility] 10/10/2020 RESCINDED ADVANCE DIRECTIVE BARBY ALMAZAN [facility] 10/13/2014 ADVANCE DIRECTIVE STEFANIE MENCHACA [facility] 04/28/2012 ADVANCE DIRECTIVE DISCUSSION DOMINGA CHILDS [facility] 04/08/2006 ADVANCE DIRECTIVE PACHECO TOBIAS [facility]
--- OUTSIDE RECORDS SUMMARY | 2025-02-15 16:29 | XMS_ITS | Encounter Summary ---
Author Name [facility] [place] [facility] [place] [facility] [place] Address [address] [place] [address] Care Team Providers Care Electrostatic Powder Coating Technician Name Role Phone October Primary Care Provider [...] Member ID Insurance Provider's Telephone Number Policy Engel's Name Patient's Relationship to Policy Engel MEDICAID (WNR) MEDICAID MEDIC AID (WNR) Feb 02, 2015 MEDICAI D [id number] ABIMAEL ASKEW PATIENT MEDICARE (WNR) MEDICARE (M) PART B Jan 03, 2016 PART B [id number] [phone] [id number] ABIMAEL ASKEW PATIENT MEDICARE (WNR) MEDICARE (M) PART B Jan 03, 2016 PART B [id number] ABIMAEL ASKEW PATIENT MEDICARE (WNR) MEDICARE (M) PART A May 05, 2014 PART A [id number] ABIMAEL ASKEW PATIENT MEDICARE (WNR) MEDICARE (M) PART A May 05, 2014 PART A [id number] ABIMAEL ASKEW PATIENT Selected Encounter This section includes the information on record at [place] for the Encounter. Date/Time Encounter Type Encounter Description Reason Provider Source Oct 02, 2024 02:41 PM NQHP OL DIG ASSMT&MGMT 21+ CLINICAL PHARMACY ICD-10-CM Z51.81 Encounter for therapeutic drug level monitoring GREGORY GONZALEZ [facility] Encounter Template Text not used by [place] Assessments - Encounter Diagnoses This section includes the primary and secondary diagnoses documented for the Encounter. Date/Time Primary/Secondary Diagnosis Diagnosis Name Provider Source Oct 03, 2024 10:50 AM PRIMARY Encounter for therapeutic drug level monitoring GREGORY GONZALEZ [facility] Plan of Treatment: Future Appointments (+ 6 months) and Future Tests (+/- 45 days) The Plan of Treatment section includes future care activities for the patient from all [place] treatmentfacilities. This section includes future appointments and future orders which are active, pending or scheduled. Future Appointments This section includes appointments that were scheduled to occur 6 months from the date of the Encounter, up to a maximum of 20 appointments. The data comes from all [place] treatment facilities. Appointment Date/Time Appointment Type Appointme nt Facility Name Oct 03, 2024 01:00 PM AMBULATORY - REHAB MEDICIN E [facility] Oct 12, 2024 08:00 AM AMBULATORY - REHAB MEDICIN E [facility] Oct 12, 2024 08:30 AM AMBULATORY - NONE [facility] Oct 12, 2024 09:00 AM AMBULATORY - REHAB MEDICIN E [facility] Oct 12, 2024 10:00 AM AMBULATORY - REHAB MEDICIN E [facility] Oct 12, 2024 10:30 AM AMBULATORY - REHAB MEDICIN [facility] Oct 12, 2024 11:00 AM AMBULATORY - REHAB MEDICIN E [facility] Oct 12, 2024 11:30 AM AMBULATORY - REHAB MEDICIN E [facility] Oct 12, 2024 12:00 PM [facility] Oct 12, 2024 12:30 PM AMBULATORY - REHAB MEDICIN E [facility] Oct 12, 2024 01:30 PM AMBULATORY - REHAB MEDICIN E [facility] Oct 19, 2024 02:00 PM AMBULATORY - REHAB MEDICIN [facility] Nov 01, 2024 10:30 AM [facility]ORY - NONE [facility] Nov 01, 2024 11:00 AM AMBULATORY - SURGERY [facility] November 29, 2024 11:30 AM AMBULATORY - REHAB MEDICIN [facility] Dec 06, 2024 10:00 AM AMBULATORY - REHAB MEDICIN [facility] Jan 11, 2025 02:00 PM AMBULATORY - REHAB MEDICIN [facility] Jan 17, 2025 11:00 AM AM[facility]UL[facility]ORY - MEDICINE [facility] Feb 07, 2025 11:30 AM AMBULATORY - REHAB MEDICIN E [facility] Feb 13, 2025 01:00 PM AMBULATORY - REHAB MEDICIN E [facility] Active, Pending, and Scheduled Orders This section includes a listing of several types of active, pending, and scheduled orders, including clinic medications orders, diagnostic test orders, procedure orders and consult orders; where the start date of the order is 45 days before the date of the Encounter or 45 days after the date of theEncounter. The data comes from all [facility]. Test Date/Time Test Type Test Details Facility Name Oct 12, 2024 12:00 AM Laboratory - Chemi stry Order OCCULT BLOOD FIT X1 SCREEN STOOL FECES SP [facility] Oct 19, 2024 12:00 AM Laboratory - Chemi stry Order BASIC METABOLIC PANEL GREEN LI/HEP BLD/PLAS PLASMA SP [facility] Oct 19, 2024 12:00 AM Laboratory - Chemi stry Order IRON/TIBC PROFILE GOLD/RED SST SERUM SP [facility] Lab Results: +/- 30 days of the encounter This section includes the Chemistry and Hematology Lab Results on record with [place] for the patient. Radiology Reports and Pathology Reports are provided separately, in subsequent sections. Lab Results This section contains the Chemistry/Hematology Results that were resulted 30 days before or 30 daysafter the date of the Encounter. Date/Time Source Result Type Result - Unit Interpretation Reference Range Specimen Type Comment Oct 12, 2024 09:43 AM [facility] HGA1C BLOOD Specimen Type: BLOOD No comment entered. Ordering Provider: GINI LAMAR Report Released Date/Time: Aug 25, 2024 07:24 PM Reporting Lab: [facility] [facility] [address] Performing Lab: [facility] [address] HGA1C 5.8 4.0-6.0 Oct 12, 2024 09:43 AM [facility] FOLATE (L-MS) SERUM Specimen Type: SERUM No comment entered. Ordering Provider: GINI LAMAR Report Released Date/Time: Aug 25, 2024 07:24 PM Reporting Lab: [facility] [address] Performing Lab: [facility]1 [facility] [address] FOLATE ([facility]) 17.6 ng/mL 7-20 Oct 12, 2024 09:43 AM [facility] B12 SERUM Specimen Type: SERUM No comment entered. Ordering Provider: GINI LAMAR Report Released Date/Time: Aug 25, 2024 07:24 PM Reporting Lab: [facility] [address] Performing Lab: [facility] [address] B12 358 pg/mL 213-816 Oct 12, 2024 09:43 AM [facility] LIPID PANEL (STL) PLASMA Specimen Type: PLASM A Comment: No hemolysis noted. Ordering Provider: GINI LAMAR Report Released Date/Time: Aug 25, 2024 07:24 PM Reporting Lab: [facility] [address] Performing Lab: [facility] [address] CHOLESTEROL 105 mg/dL 0-200 TRIGLYCERIDE 71 mg/dL 0-150 CALCULATED LDL 63 mg/dL See Interp HDL(New) 28 mg/dL L > 40 Oct 12, 2024 09:43 AM [facility] VITAMIN D, 25-HYDROXY SERUM Specimen Type: SE RUM No comment entered. Ordering Provider: GINI LAMAR Report Released Date/Time: Aug 25, 2024 07:24 PM Reporting Lab: [facility] [address] Performing Lab: [facility] [address] VITAMIN D, 25-HYDROXY 35.2 ng/mL 30-96 Oct 12, 2024 09:43 AM [facility] TSH W/ REFLEX FT4 (STL) PLASMA Specimen Type: PLASMA No comment entered. Ordering Provider: GINI LAMAR Report Released Date/Time: Aug 25, 2024 07:24 PM Reporting Lab: [facility] [address] Performing Lab: [facility] [address] TSH 4.224 u[IU]/mL 0.470-5.000 Oct 12, 2024 09:43 AM [facility] PREALBUMIN SERUM Specimen Type: SERUM No comment entered. Ordering Provider: GINI LAMAR Report Released Date/Time: Aug 25, 2024 07:24 PM Reporting Lab: [facility] [address] [facility] [address] Performing Lab: [facility] [address] [facility] [address] PREALBUMIN 15 mg/dL L 16-42 Oct 12, 2024 09:43 AM [facility] CYSTATIN C EGFR PANELS (STL-PB-MA) PLASMA Spec imen Type: PLASMA Comment: Choice of which of the reported eGFR values to use depends on the clinical situation. For example, for patients with severe muscle wasting or reduced muscle mass, eGFR calculated using the 2012 cystatin equation may be preferred. Ordering Provider: GINI LAMAR Report Released Date/Time: Aug 25, 2024 07:24 PM Reporting Lab: [facility] [address] [facility] [address] Performing Lab: [place] [address] [facility] [address] CYSTATIN C 1.70 mg/L 0.57-1.80 CKD-EPI CYSTATIN C (2011) 36.2 >60 CKD-EPI CREAT-CYSC (2020) 54.4 >60 CREATININE (ST) 0.95 mg/dL 0.7-1.3 Oct 12, 2024 09:43 AM [facility] COMPREHENSIVE METABOLIC PANEL PLASMA Specimen Type: PLASMA Comment: No hemolysis noted. Ordering Provider: GINI LAMAR Report Released Date/Time: Aug 25, 2024 07:24 PM Reporting Lab: [facility] [address] Performing Lab: [facility] [address] CREATININE 0.95 mg/dL 0.70-1.30 UREA NITROGEN 21.3 mg/dL 9.0-25.0 GLUCOSE 81 mg/dL 72-99 SODIUM 140 meq/L 136-145 POTASSIUM 4.0 meq/L 3.5-5.0 CHLORIDE 107 meq/L 98-107 CARBON DIOXIDE 27 meq/L 22-31 CALCIUM 8.4 mg/dL 8.4-10.4 PROTEIN 6.1 g/dL 6.0-8.6 ALBUMIN 3.3 g/dL L 3.4-5.0 TOTAL BILIRUBIN 0.5 mg/dL 0.2-1.2 ALKALINE PHOSPHATASE 90 U/L 40-150 AST/SGOT 34 U/L 5-34 ALT/SGPT 20 U/L 8-40 EGFR (CKD-EPI 2020) 83.47 >60 Oct 12, 2024 09:43 AM [facility] CBC BLOOD Specimen Type: BLOOD No comment entered. Ordering Provider: GINI LAMAR Report Released Date/Time: Aug 25, 2024 07:24 PM Reporting Lab: [facility] [address] Performing Lab: [facility] [address] WBC 5.9 10*3/uL 3.6-11.2 RBC 3.78 10*6/uL L 4.10-5.70 HGB 10.7 g/dL L 13.1-16.8 HCT 34.1 L 38.2-48.4 MCV 90.2 fL 80.0-100.0 MCH 28.3 pg 27.0-34.0 MCHC 31.4 g/dL L 33.0-36.0 PLT 219 10*3/uL 150-400 MPV 10.5 fL 7.5-11.2 RDW 15.9 H 11.8-15.1 LYMPHOCYTES, AUTO % 10 MONOCYTES, AUTO % 10 NEUTROPHILS, AUTO % 76 EOSINOPHILS, AUTO % 2 BASOPHILS, AUTO % 1 LYMPHOCYTES, ABSOLUTE 0.61 10*3/uL L 0.77- 4.50 MONOCYTES, ABSOLUTE 0.61 10*3/uL 0.19-0. 80 NEUTROPHILS, ABSOLUTE 4.52 10*3/uL 2.10- 8.00 EOSINOPHILS, ABSOLUTE 0.14 10*3/uL 0.00- 0.60 BASOPHILS, ABSOLUTE 0.03 10*3/uL 0.00-0. 20 Social History: Smoking Status (Most current) and Tobacco Use (All prior to encounter date) This section includes the most current, and the historical, smoking and tobacco- related health factors from the [place] facility where the Encounter took place. Current Smoking Status This section includes the most current smoking, or tobacco-related health factor, from the [place] facility where the Encounter took place. Date/Time Current Smoking Status Comment Chip [email or web address] Sep 27, 2023 01:00 PM [place]-TOBACCO NEVER USED [facility] Tobacco Use History This section includes a history of the smoking, or tobacco-related health factors, that were collected on or before the date of the Encounter. The data comes from the [place] facility where the Encounter took place. Date/Time Smoking Status/Tobacco Use Comment F acavi Oct 15, 2022 08:00 AM [place]-TOBACCO NEVER USED [facility] Oct 16, 2021 08:00 AM VA-TOBACCO FORMER USER [facility] Oct 16, 2021 08:00 AM VA-TOBACCO QUIT 15 YRS OR MORE [facility] Oct 10, 2020 08:00 AM VA-TOBACCO FORMER USER [facility] Oct 10, 2020 08:00 AM VA-TOBACCO QUIT 15 YRS OR MORE [facility] Oct 18, 2019 01:49 PM VA-TOBACCO FORMER USER [facility] Oct 18, 2019 01:49 PM VA-TOBACCO QUIT 15 YRS OR MORE [facility] Oct 18, 2019 01:49 PM VA-TOBACCO QUIT 5 TO < 15 YRS [facility] Oct 04, 2018 08:04 AM VA-TOBACCO FORMER USER [facility] Oct 04, 2018 08:04 AM VA-TOBACCO QUIT 15 YRS OR MORE [facility] Apr 06, 2011 03:10 PM QUIT TOBACCO >7 YEARS AGO [facility] Feb 02, 2011 03:20 PM LIFETIME NON-USER OF TOBACCO [facility] Aug 02, 2006 03:10 PM QUIT TOBACCO >7 YEARS AGO [facility] Apr 11, 2006 02:21 PM CURRENT NON-TOBACC O USER-HX OF USE [facility] Apr 11, 2006 02:21 PM TOBACCO TERMINATION STAGE [facility] Advance Directives: All historical and current Section Date Range: From patient's date of to the date document was created. This section includes ALL of a patient's completed or amended [place] Advance and Rescinded Directives. The entries below indicate that a directive exists for the patient, but an actual copy is not included with this document. The data comes from all [place] facilities. Date Advance Directives Provider Source Oct 12, 2024 ADVANCE DIRECTIVE RAHEEL MINER [facility] Oct 10, 2020 ADVANCE DIRECTIVE BARBY ALMAZAN [facility] Oct 10, 2020 RESCINDED ADVANCE DIRECTIVE BARBY ALMAZAN [facility] Oct 13, 2014 ADVANCE DIRECTIVE STEFANIE MENCHACA [facility] Apr 28, 2012 ADVANCE DIRECTIVE DISCUSSION DOMINGA CHILDS [facility] Apr 08, 2006 ADVANCE DIRECTIVE MICHELINEPACHECO GALLARDO IS [facility] Radiology Reports: +/- 30 days of the encounter Radiology Reports For cases when an order for radiology services may have been completed prior to the date of the Encounter, the report list includes the Radiology Reports that were completed up to 30 days before dateof the Encounter. For cases when an order for radiology services may have been completed after the date of the Encounter, the report list also includes the Radiology Reports that were completed up to30 days after date of the Encounter. The data comes from all [place] treatment facilities. Date/Time Radiology Report Provider Source Nov 01, 2024 10:16 AM US ABDOMEN AORTA ( AAA), LIMITED: AZARJEROME [id number] -1950 M Exm Date: NOV 01, 2024@10:16 Req Phys: BRIANDAGINI Philipp Pat Loc: [facility]AR-SCI ANNUAL EVAL MANAGER PURCHASING (Req'g L Img Loc: OSCAR-ULTRASOUND Service: Unknown [facility], [facility] [address] [place] [address] (Case [id number] COMPLETE) US ABDOMEN AORTA (AAA), LIMITED (US Detailed) CPT:60093 Reason for Study: Screening for AAA Clinical History: Screen for abdominal aortic aneurysm in known male smoker. Report Status: Verified Date Reported: NOV 01, 2024 Date Verified: NOV 01, 2024 Government Contracts Manager E-Sig:/JAMES/PACHECO MARTIN Report: Case #[id number] EXAM: Abdominal aortic ultrasound HISTORY:Screening for AAA TECHNIQUE:Real time and color Doppler examination of the abdominal aorta were performed. COMPARISON: CT abdomen from 11/05/2020. FINDINGS: Proximal abdominal aorta: 2.1 x 2 cm Mid abdominal aorta: 2.5 x 2.1 cm Infrarenal abdominal aorta: 1.7 x 2 cm Both common iliac arteries are within normal limits. Atherosclerotic calcification of the aorta and its branches. Impression: 1. No evidence of abdominal aortic aneurysm. 2. Atherosclerotic calcification the aorta and its branches. Report dictated by CELINA Castillo I, Pacheco Martin, have reviewed the images and report and concur with these findings. Primary Interpreting Staff: PACHECO MARTIN MD (Government Contracts Manager) Primary Interpreting Resident: CELINA GRAHAM, Vascular & Interventional Examiner Rating Clerk /PACHECO LI [facility] Oct 12, 2024 07:30 AM US LIMITED & RENAL COMP-P (SCI): JEROME ASKEW [id number] -1950 M Exm Date: OCT 12, 2024@07:30 Req Phys: BRIANDA,OCTOBER M Pat Loc: [facility]SCI ANNUAL EVAL MANAGER PURCHASING (Req'g L Img Loc: [facility]-ULTRASOUND Service: [facility], [facility] [address] [place] [address] (Case [id number] COMPLETE) US ABDOMEN LTD, SINGLE ORG OR SARY(US Detailed) CPT:80769 Reason for Study: sci annual (Case [id number] COMPLETE) US RENAL COMPLETE (US Detailed) CPT:66785 Clinical History: Report Status: Verified Date Reported: OCT 12, 2024 Date Verified: OCT 12, 2024 Government Contracts Manager E-Sig:/ES/PACHECO MARTIN Report: Case #: [id number], [id number] Exam: Renal and gallbladder ultrasound Comparison: 10/14/2023. Technique: Real-time sonographic images of both kidneys, gallbladder and urinary bladder were obtained in longitudinal and transverse projections. Findings: The gallbladder size is normal. Redemonstrated gallbladder stones. Negative sonographic Ye sign. The right kidney measures 10.4 x 4.0 by 5.6 cm longitudinally. The left kidney measures 11.0 x 4.6 x 4.3 cm longitudinally. No hydronephrosis, renal stone or focal mass is seen. Suprapubic catheter attenuates sound beams and limits evaluation of the bladder. Impression: Cholelithiasis. No renal calculi or hydronephrosis. Dictated by Celina Graham MD I, Robert Garrett, have reviewed the images and report and concur with these findings. Primary Interpreting Staff: PACHECO MARTIN MD (Government Contracts Manager) Primary Interpreting Resident: CLEINA GRAHAM Vascular & Interventional Examiner Rating Clerk /PACHECO LI [facility] Encounter Notes: All associated encounter notes This section contains the clinical notes associated to the Encounter. Date/Time Encounter Note(s) Provider Source Oct 13, 2024 03:58 PM ADDENDUM: LOCAL TITLE: Addendum STANDARD TITLE: ADDENDUM DATE OF NOTE: OCT 13, 2024@15:58:05 ENTRY DATE: OCT 13, 2024@15:58:06 AUTHOR: GREGORY GONZALEZ COSIGNER: URGENCY: STATUS: COMPLETED LABS: ----- SODIUM 140 mEq/L 10/12/2024 09:43 POTASSIUM 4.0 mEq/L 10/12/2024 09:43 CHLORIDE 107 mEq/L 10/12/2024 09:43 UREA NITROGEN 21.3 mg/dL 10/12/2024 09:43 CALCIUM 8.4 mg/dL 10/12/2024 09:43 PROTEIN 6.1 g/dL 10/12/2024 09:43 ALBUMIN 3.3 L g/dL 10/12/2024 09:43 ALKALINE PHOSPHATASE 90 U/L 10/12/2024 09:43 ALT/SGPT 20 U/L 10/12/2024 09:43 AST/SGOT 34 U/L 10/12/2024 09:43 TOTAL BILIRUBIN 0.5 mg/dL 10/12/2024 09:43 CARBON DIOXIDE 27 mEq/L 10/12/2024 09:43 GLUCOSE 81 mg/dL 10/12/2024 09:43 HGB 10.7 L g/dL 10/12/2024 09:43 HCT 34.1 % L 10/12/2024 09:43 TRIGLYCERIDE 71 mg/dL 10/12/2024 09:43 CHOLESTEROL 105 mg/dL 10/12/2024 09:43 HDL(New) 28 L mg/dL 10/12/2024 09:43 CALCULATED LDL 63 mg/dL 10/12/2024 09:43 FOLATE (STL-MA) 17.6 ng/mL 10/12/2024 09:43 B12 358 pg/mL 10/12/2024 09:43 TSH 4.224 uIU/mL 10/12/2024 09:43 VITAMIN D, 25-HYDROXY 35.2 ng/mL 10/12/2024 09:43 VITAMIN D, 25-HYDROXY 37.6 ng/mL 10/14/2023 11:32 HGA1C 5.8 % 10/12/2024 09:43 CREATININE 0.95 mg/dL 10/12/2024 09:43 CYSTATIN C 10/12/2024@0943 1.70 10/14/2023@1132 1.40 CKD-EPI creatinine-cystatin equation (2020) Indexed eGFR: 54 mL/min/1.73m2 CKD-EPI creatinine-cystatin equation (2020) non-Indexed eGFR: 65 ml/min DEMOGRAPHICS: HT: 75 in [190.5 cm] (10/14/2023 08:00) WT: 173 lb [78.47 kg] (10/12/2024 09:25) BMI: 21.7 KG/M2 VITALS: ------- Measurement DT BP 10/12/2024 09:25 121/63 12/27/2023 13:00 138/88 11/24/2023 13:35 142/82 PULSE 76 (10/12/2024 09:25) Active and Recently Outpatient Medications (including Supplies): Active Outpatient Medications Status 1) BACLOFEN 2MG/ML PF INTRATHECAL AMP 40ML INJECT 80 MG/40 ML ACTIVE INTRATHECALLY EVERY 2 MONTHS FOR INTRATHECAL PUMP (ADMINISTER IN CLINIC) 2) CAMPHOR 0.5/MENTHOL 0.5% LOTION APPLY LIBERALLY TO AFFECTED ACTIVE AREA(S) THREE TIMES A DAY NEEDED - (EXTERNAL USE ONLY) Indication: FOR ITCHING 3) CATHETER ENGEL,LEG STRAP 2IN X 24IN USE STRAP ONCE A DAY ACTIVE Indication: TO SECURE CATHETER TUBING 4) CATHETER,PERRY 24FR 5CC BARD#[id number] USE CATHETER EVERY 2 ACTIVE WEEKS Indication: FOR URINARY RETENTION 5) HALOBETASOL PROPIONATE 0.05% OINT APPLY LIGHTLY TO AFFECTED ACTIVE AREA(S) TWICE DAILY (EXTERNAL USE ONLY) APPLY TO NEW BITES ON THE SKIN DAILY 6) HEMORRHOIDAL RTL OINT APPLY SPARINGLY RECTALLY TWICE DAILY ACTIVE NEEDED FOR RELIEF OF HEMORROIDAL DISCOMFORT. FOR EXTERNAL APPLICATION ONLY. 7) HYDROCORTISONE 2.5% CREAM APPLY SPARINGLY TO AFFECTED ACTIVE AREA(S) TWICE DAILY FOR EXTERNAL USE ONLY. Indication: FOR ECZEMATOUS DERMATITIS 8) URINARY DRAINAGE BAG [place] #[id number] USE BAG TO AFFECTED ACTIVE AREA(S) EVERY 2 WEEKS FOR URINARY CARE Active Non-VA Medications Status 1) Non-VA ACETAMINOPHEN 500MG TAB 1000MG BY MOUTH EVERY 6 HOURS ACTIVE NEEDED 2) Non-VA ASCORBIC ACID 500MG TAB 500MG BY MOUTH ONCE A DAY ACTIVE 3) Non-VA ASPIRIN 81MG EC TAB 81MG BY MOUTH ONCE A DAY ACTIVE 4) Non-VA ATORVASTATIN CALCIUM 80MG TAB 80MG BY MOUTH EVERY ACTIVE EVENING 5) Non-VA BISACODYL 10MG ENEMA CONTENTS OF 1 ENEMA RECTALLY ACTIVE TWICE DAILY NEEDED 6) Non-VA CRANBERRY EXTRACT CAP/TAB 1 CAP/TAB BY MOUTH TWICE A ACTIVE DAY 7) Non-VA DICLOFENAC NA 1% TOP GEL 4 GM TO AFFECTED AREA(S) ACTIVE FOUR TIMES A DAY NEEDED Indication: FOR PAIN 8) Non-VA DULOXETINE HCL 30MG EC CAP 30MG BY MOUTH TWICE A DAY ACTIVE Indication: FOR NERVE PAIN 9) Non-VA FERROUS SULFATE 325MG TAB 325MG BY MOUTH EVERY OTHER ACTIVE DAY 10) Non-VA FOLIC ACID 1MG TAB 1MG BY MOUTH ONCE A DAY ACTIVE 11) Non-VA GUAIFENESIN 600MG SA TAB 600MG BY MOUTH TWICE DAILY ACTIVE NEEDED 12) Non-VA HYDRALAZINE HCL 50MG TAB 50MG BY MOUTH TWICE A DAY ACTIVE 13) Non-VA HYDROXYZINE HCL 25MG TAB 25MG BY MOUTH THREE TIMES A ACTIVE DAY NEEDED Indication: FOR DERMATITIS 14) Non-VA LEVETIRACETAM 250MG TAB 250MG BY MOUTH TWICE A DAY ACTIVE Indication: FOR SEIZURES 15) Non-VA LOPERAMIDE HCL 2MG CAP 2MG BY MOUTH THREE TIMES A DAY ACTIVE NEEDED Indication: FOR DIARRHEA 16) Non-VA MAGNESIUM CITRATE LIQUID 1 BOTTLE BY MOUTH ONCE A DAY ACTIVE NEEDED 17) Non-VA METHENAMINE HIPPURATE 1GM TAB 1GM BY MOUTH TWICE A ACTIVE DAY 18) Non-VA METOPROLOL TARTRATE 50MG TAB 25MG BY MOUTH TWICE A ACTIVE DAY 19) Non-VA MICONAZOLE NITRATE 2% VAG CREAM APPLICATORFUL ACTIVE NEEDED 20) Non-VA MIRABEGRON 25MG SA TAB 25MG BY MOUTH ONCE A DAY ACTIVE 21) Non-VA NON-FORMULARY TAB CAMPHOR-MENTHOL 4-10% CREAM EVERY ACTIVE 4 HOURS NEEDED 22) Non-VA PANTOPRAZOLE NA 40MG EC TAB 40MG BY MOUTH TWICE A DAY ACTIVE 23) Non-VA POLYETHYLENE GLYCOL 3350 ORAL PWDR 1 CAPFUL BY MOUTH ACTIVE ONCE A DAY NEEDED 24) Non-VA POLYETHYLENE GLYCOL 3350 ORAL PWDR 1 CAPFUL BY MOUTH ACTIVE TWICE DAILY NEEDED 25) Non-VA POTASSIUM CL 20MEQ SA TAB (DISPERSIBLE) 20MEQ BY ACTIVE MOUTH TWICE A DAY 26) Non-VA PSYLLIUM ORAL PWD 1 TEASPOONFUL BY MOUTH ONCE A DAY ACTIVE NEEDED 27) Non-VA SENNOSIDES 8.6MG TAB 8.6MG BY MOUTH TWICE DAILY ACTIVE NEEDED Indication: FOR CONSTIPATION 28) Non-VA SIMETHICONE 80MG CHEW TAB 80MG BY MOUTH TWICE DAILY ACTIVE NEEDED 29) Non-VA ZINC OXIDE 20% OINT SPARINGLY TO AFFECTED AREA(S) ACTIVE NEEDED 37 Total Medications A/P: RECOMMENDATIONS/COMMENTS: # LABS: - Folate WNL; stable from 10/26 (19.5 ng/mL). [facility] taking folic acid 1 mg daily. - Continue to monitor folate per SCI team. - B12 WNL; stable from 10/26 (506 pg/mL). [facility] not taking B12 supplementation. - Continue to monitor B12 per SCI team. - TSH WNL. - Continue to monitor TSH per SCI team. - Potassium low on 10/10 at outside hospital. received IV potassium (dose unknown) and was discharged on KCL 20 mEq BID x 5 days. Potassium level at AE visit WNL. - Consider repeating potassium level in 2-4 weeks to reassess potassium level after short course repletion. - [facility] taking ferrous sulfate 325 mg every other day. Most recent iron panel from 10/26 demonstrated a TSAT WNL. - Consider repeating iron panel with next set of routine labs to assess if iron supplementation still warranted. # BONE HEALTH: - Vitamin D WNL; stable from 10/26. Calcium and corrected calcium (9 mg/dL) WNL. [facility] not on vitamin D or calcium supplementation. - Continue to monitor calcium, albumin, and vitamin D per SCI team. # HYPERTENSION: - Current regimen: Metoprolol tartrate 25 mg PO BID + hydralazine 50 mg PO BID. - BP Goal <150/90 mmHg (per Va/DOD; age >/=60); BP at goal during AE visit. - Continue to monitor BP per SCI team. [facility] on beta tim in the setting of basal septal hypertrophy (recommended to continue by outside film producer). # ASCVD (STATIN USE): - Vanderbilt currently on high-intensity statin therapy (atorvastatin 80 mg daily). Due to pt reported hx of multiple strokes, per the 2021 ACC Expert Consensus Decision Pathway, Vanderbilt would be considered an adult with ASCVD at very high risk. Therefore, consider targeting LDL reduction of 50% or more from baseline and LDL <55 mg/dL. Unclear when statin initiated, so unknown baseline LDL. Most recent LDL slightly above goal (63 mg/dL). - Since prior LDL results near goal of <55 mg/dL, may consider continuing atorvastatin 80 mg daily or can consider changing to rosuvastatin 40 mg daily as rosuvastatin is associated with a greater LDL reduction. If statin changed, consider repeating LDL in 4-12 weeks. Continue to stress the importance of positive lifestyle modifications such as eating a heart- healthy diet, regular aerobic exercises, maintenance of desirable body weight and avoidance of tobacco products. # DIABETES SCREENING: - Most recent A1c elevated within pre-DM range; stable from 10/26 (6%). Vanderbilt has hx of multiple A1c readings within pre-DM. - Continue to monitor BG/A1c per SCI team. # RENAL DOSING: CKD-EPI creatinine-cystatin equation (2020) Indexed eGFR: 54 mL/min/1.73m2 CKD-EPI creatinine-cystatin equation (2020) non-Indexed eGFR: 65 ml/min - Over the past year, cystatin C has increased (1.4 --> 1.7 mg/L) but SCr remained stable (0.98 --> 0.95 mg/dL). has reduced renal function and therefore, is at risk of accumulation of renally cleared drugs. - Current medications are dosed appropriately for the patient's renal function. # CARDIOMETABOLIC DISEASE SCREENING: - BMI MET goal of <22 kg/m2 - Use of medication for hypertension - HDL DID NOT MEET goal of MEN >40 mg/dL - TRIGLYCERIDES MET goal of <150 mg/dL - FBG MET goal of <100 mg/dL - VET has 2 risk factors listed above and will be screened on a yearly basis # SUMMARY OF CONSIDERATIONS/RECOMMENDATIO NS/OTHER: - Consider repeating iron panel with next set of routine labs to assess if iron supplementation still warranted. - Since prior LDL results near goal of <55 mg/dL, may consider continuing atorvastatin 80 mg daily or can consider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 ACTIVE NEEDED Confirmed on [place] med list 16) Non-VA HYDRALAZINE HCL 50MG TAB 50MG BY MOUTH EVERY EIGHT(8) ACTIVE HOURS NEEDED Per [place] med list, dose changed to 50 mg BID; hold if SBP <140 mmHg 17) Non-VA HYDROCORTISONE 2.5% RTL CRM W/APPLICATOR 1 ACTIVE APPLICATORFUL RECTALLY TWICE DAILY NEEDED Not listed on [place] med list 18) Non-VA LACTOBACILLUS ACIDOPHILUS TAB 1 CAP/TAB BY MOUTH ONCE ACTIVE A DAY Not listed on [place] med list 19) Non-VA LIDOCAINE 5% PATCH 2 PATCHES TO SKIN SITE ONCE A DAY ACTIVE NEEDED Per [place] med list, using 4% patch - 2 patch BID 20) Non-VA LISINOPRIL 40MG TAB 20MG BY MOUTH ONCE A DAY ACTIVE Not listed on [place] med list 21) Non-VA LORATADINE 10MG TAB 10MG BY MOUTH ONCE A DAY ACTIVE Not listed on [place] med list 22) Non-VA METHENAMINE HIPPURATE 1GM TAB 1GM BY MOUTH TWICE A ACTIVE DAY Confirmed on [place] med list 23) Non-VA METOPROLOL TARTRATE 50MG TAB 25MG BY MOUTH TWICE A ACTIVE DAY Confirmed on [place] med list 24) Non-VA MINERAL OIL HEAVY 5 ML BY MOUTH THREE TIMES A DAY ACTIVE NEEDED Not listed on [place] med list 25) Non-VA MIRABEGRON 25MG SA TAB 25MG BY MOUTH ONCE A DAY ACTIVE Confirmed on [place] med list 26) Non-VA MULTIVITAMIN CAP/TAB 1 TABLET BY MOUTH ONCE A DAY ACTIVE Not listed on [place] med list 27) Non-VA NALOXONE HCL 4MG/SPRAY SOLN NASAL SPRAY 1 SPRAY (4MG) ACTIVE ONE NOSTRIL ONLY ONE-TIME Confirmed on [place] med list 28) Non-VA PANTOPRAZOLE NA 40MG EC TAB 40MG BY MOUTH TWICE A DAY ACTIVE Confirmed on [place] med list 29) Non-VA PHOSPHATES ENEMA CONTENTS OF 1 ENEMA RECTALLY ONCE A ACTIVE DAY NEEDED Not listed on [place] med list 30) Non-VA POLYETHYLENE GLYCOL 3350 ORAL PWDR 1 CAPFUL BY MOUTH ACTIVE AT BEDTIME Per [place] med list, 1 capful PO BID PRN if no BM x 3 days 31) Non-VA POLYETHYLENE GLYCOL 3350 ORAL PWDR 1 CAPFUL BY MOUTH ACTIVE ONCE A DAY NEEDED Confirmed on [place] med list 32) Non-VA PREGABALIN 100MG ORAL CAP 100MG BY MOUTH TWICE A DAY ACTIVE Not listed on [place] med list 33) Non-VA PSYLLIUM POWDER,ORAL 1 PACKET OF PSYLLIUM BY MOUTH ACTIVE TWICE A DAY Per [place] med list, [facility] taking 1 tsp PO qday PRN 34) Non-VA SIMETHICONE 80MG CHEW TAB 80MG BY MOUTH TWICE DAILY ACTIVE NEEDED Confirmed on [place] med list 42 Total Medications Additional medications not listed in [facility]: - Camphor-menthol 4-10% cream: Apply top q4hr PRN (started 06/14/24) - Duloxetine 30 mg PO BID (started 07/17/24 for neuropathy) - Hydroxyzine 25 mg PO TID PRN for dermatitis; end date 10/12/24) - Ibuprofen 800 mg PO q6hr PRN - Loperamide 2 mg PO TID PRN diarrhea - Magnesium citrate 150 mL PO qday PRN - Miconazole 2% cream apply top PRN - Sennosides 8.6 mg PO BID PRN if no BM x 3 days - Zinc oxide-whit petrolatum 17-57% top every shift PRN LABS: ----- SODIUM 143 mEq/L 10/14/2023 11:32 POTASSIUM 4.3 mEq/L 10/14/2023 11:32 CHLORIDE 106 mEq/L 10/14/2023 11:32 UREA NITROGEN 20.7 mg/dL 10/14/2023 11:32 CALCIUM 8.8 mg/dL 10/14/2023 11:32 PROTEIN 6.3 g/dL 10/14/2023 11:32 ALBUMIN 3.6 g/dL 10/14/2023 11:32 ALKALINE PHOSPHATASE 114 U/L 10/14/2023 11:32 ALT/SGPT 13 U/L 10/14/2023 11:32 AST/SGOT 17 U/L 10/14/2023 11:32 TOTAL BILIRUBIN 0.7 mg/dL 10/14/2023 11:32 CARBON DIOXIDE 29 mEq/L 10/14/2023 11:32 GLUCOSE 88 mg/dL 10/14/2023 11:32 HGB 11.8 L g/dL 10/14/2023 11:32 HCT 36.9 % L 10/14/2023 11:32 TRIGLYCERIDE 48 mg/dL 10/14/2023 11:32 CHOLESTEROL 98 mg/dL 10/14/2023 11:32 HDL(New) 34 L mg/dL 10/14/2023 11:32 CALCULATED LDL 54 mg/dL 10/14/2023 11:32 FOLATE ([facility]) 19.5 ng/mL 10/14/2023 11:32 B12 506 pg/mL 10/14/2023 11:32 TSH 2.069 uIU/mL 10/14/2023 11:32 VITAMIN D, 25-HYDROXY 37.6 ng/mL 10/14/2023 11:32 VITAMIN D, 25-HYDROXY 39.9 ng/mL 10/15/2022 09:19 IRON 67 ug/dL 10/14/2023 11:32 IRON SATURATION 26 %SAT 10/14/2023 11:32 TIBC 256 ug/dL 10/14/2023 11:32 HGA1C 6.0 % 10/14/2023 11:32 CREATININE 0.98 mg/dL 10/14/2023 11:32 CYSTATIN C 10/14/2023@1132 1.40 CKD-EPI creatinine-cystatin equation (2020) Indexed eGFR: 62 mL/min/1.73m2 CKD-EPI creatinine-cystatin equation (2020) non-Indexed eGFR: 79 ml/min DEMOGRAPHICS: HT: 75 in [190.5 cm] (10/14/2023 08:00) WT: 202 lb [91.63 kg] (10/14/2023 08:00) BMI: 25.3 KG/M2 VITALS: ------- Measurement DT BP 12/27/2023 13:00 138/88 11/24/2023 13:35 142/82 11/24/2023 13:30 152/74 PULSE 62 (12/27/2023 13:00) IMMUNIZATIONS: PLEASE OFFER THE FOLLOWING IF DUE COVID-19 (Pfizer), Dose 2 Due Now, Dose 1 03/31/24 Influenza, 03/31/24 RSV 10/14/23 Pneumococcal Conjugate, PCV20 10/14/23 COVID-19 (Moderna), 05/03/23 COVID-19 (Pfizer), Bivalent Booster 04/28/22 COVID-19 (PFIZER), Monovalent Booster 12/24/21 COVID-19 (PFIZER), Primary Series 07/06/20, 07/27/20 PNEUMOCOCCAL CONJ, PCV 13 10/24/15 PNEUMOCOCCAL POLYS PPV23 05/12/17 TDAP 10/16/21 ZOSTER RECOMBINANT 10/10/20, 12/11/20 A/P: RECOMMENDATIONS/COMMENTS: # MED REC: - Med rec completed and med list updated in [facility]. Updates/discrepancies to medication list are below: ADDED PER [place] MED LIST: - Camphor-menthol 4-10% cream: Apply top q4hr PRN (started 06/14/24) - Duloxetine 30 mg PO BID (started 07/17/24 for neuropathy) - Hydroxyzine 25 mg PO TID PRN for dermatitis; end date 10/12/24) - Ibuprofen 800 mg PO q6hr PRN - Loperamide 2 mg PO TID PRN diarrhea - Magnesium citrate 150 mL PO qday PRN - Miconazole 2% cream apply top PRN - Sennosides 8.6 mg PO BID PRN if no BM x 3 days - Zinc oxide-white petrolatum 17-57% top every shift PRN DISCONTINUED PER [place] MED LIST: - Amlodipine 10 mg daily - Amoxicillin/clavulanate 875-125 mg PO BID - Baclofen 5 mg PO TID PRN - Bisacodyl EC 10 mg PO qday PRN - Docusate 100 mg PO qHS - Docusate/sennosides 50-8.6 mg PO BID PRN - Furosemide 20 mg PO qAM - Hydrocortisone 2.5% rectal cream OK BID PRN - Lactobacillus 1 cap PO qday - Lisinopril 20 mg PO qday - Loratadine 10 mg PO qday - Mineral oil 5 ML PO TID PRN - MVI PO qday - Phosphate enema OK qday PRN - Pregabalin 100 mg PO BID MEDICATION WITH DOSE/FREQUENCY CHANGES PER [place] MED LIST: - Bisacodyl 10 mg enema (1 enema OK BID OK if no BM x 3 days) - Hydralazine (50 mg PO BID; hold if SBP <140 mmHg) - Lidocaine 4% patch (2 patch BID) - [id number] (1 capful PO BID PRN if no BM x 3 days) - Psyllium (1 tsp PO qday PRN) # LABS: - Will assess folate, B12, and TSH when updated labs are obtained and available to review. # BONE HEALTH: - Will reassess when updated calcium and vitamin D levels are obtained/available for review. Requesting SCI team assess if would benefit from DEXA scan as pharmacist unable to locate hx of prior DEXA. # HYPERTENSION: - Current regimen: Metoprolol tartrate 25 mg PO BID + hydralazine 50 mg PO BID - BP Goal <150/90 mmHg (per [facility]; age >/=60); per [facility] vital sign report from 09/23-10/01, 's SBP has ranged from 127-168 mmHg and DBP has ranged from 68-84 mmHg; majority of BP values at goal. - Requesting SCI team assess BP regimen and advise if has a compelling indication for beta tim therapy. If not, consider transition from metoprolol to a first line antihypertensive agent, such as amlodipine. Vanderbilt previously on amlodipine in the past but previously refused the medication d/t thinking it was not needed as he felt his BP was controlled without it. Switching to amlodipine would also reduce the number of pills the Vanderbilt would need to take per day. # RENAL DOSING: CKD-EPI creatinine-cystatin equation (2020) Indexed eGFR: 62 mL/min/1.73m2 CKD-EPI creatinine-cystatin equation (2020) non-Indexed eGFR: 79 ml/min - Current medications are dosed appropriately for the patient's renal function. Will reassess when updated labs obtained/available for review. # DIABETES SCREENING: - Most recent A1c elevated within pre-DM range. has hx of multiple A1c readings within pre-DM. - Will reassess when updated labs obtained/available for review. # ASCVD (STATIN USE): - currently on high-intensity statin therapy (atorvastatin 80 mg daily). Due to pt reported hx of multiple strokes, per the 2021 ACC Expert Consensus Decision Pathway, Vanderbilt would be considered an adult with ASCVD at very high risk. Therefore, consider targeting LDL reduction of 50% or more from baseline and LDL <55 mg/dL. Unclear when statin initiated, so unknown baseline LDL. However, based on highest LDL on file (193.6 mg/dL (12/10), 's most recent LDL at goal. - Will reassess when updated labs obtained/available for review. # ASCVD (ANTIPLATELET USE): - Vanderbilt previously on ASA 81 mg daily but discontinued sometime between November 2022 and October 2023. Per prior discussion with Vanderbilt, he reported hx of multiple strokes and per [facility] problem list, Rayna has hx of other cerebral infarction. - Requesting SCI MANAGER PURCHASING review and determine if Vanderbilt would benefit from resuming ASA 81 mg daily in the setting of prior CVA. # POTENTIALLY INAPPROPRIATE MEDICATIONS IN PATIENTS 65 YEARS AND OLDER: - Medications reviewed and assessed by this Clinical Life Skills Teacher. The following medications are considered high risk in patients 65 years and older: - Duloxetine: May exacerbate or cause SIADH or hyponatremia; most recent sodium level WNL; continue to monitor per SCI team. - Hydroxyzine: Increased risk of anticholinergic side effects; medication prescribed for finite duration d/t dermatitis. Continue to monitor for ADEs during use. - Pantoprazole: Increased risk of C difficile infection, pneumonia, GI malignancies, bone loss and fractures. has hx of PUD/GERD. In the setting of PUD/GERD and potential to restart ASA for secondary ASCVD prevention, reasonable to continue PPI at lowest effective dose for GI protection. - Ibuprofen: Increased risk of GI bleeding or peptic ulcer disease. D/t hx of PUD and possible resumption of ASA, consider if Vanderbilt can d/c ibuprofen and utilize APAP for pain. If NSAID therapy is necessary, consider the use of a MCCLAIN-2 selective NSAID, such as celecoxib. # VIONE POLYPHARMACY MEDICATION REVIEW: - Medications were reviewed for documented indication, duplication of therapy, and drug/drug interactions. - Actions: - The following drug-drug interactions are noted as clinically significant: - Baclofen/hydroxyzine: May increase risk of SALES OPERATIONS depression, monitor closely - Ibuprofen/Duloxetine: May increase risk of bleeding, monitor closely - Hydroxyzine/Mirabegron: May increase risk of anticholinergic side effects, monitor closely # PAIN MANAGEMENT: - Current Regimen: Ibuprofen 800 mg PO q6hr PRN + Duloxetine 30 mg PO BID + APAP 1000 mg PO q6hr PRN + lidocaine 4% patch - 2 patch top BID - Requesting SCI team assess pain control during AE visit. D/t hx of PUD and possible resumption of ASA, consider if can d/c ibuprofen and utilize APAP for pain. If NSAID therapy is necessary, consider the use of a MCCLAIN-2 selective NSAID, such as celecoxib. - Due to multiple manufacturers of lidocaine 4% patches, recommend speaking to [facility] staff and ensure 2 patches BID is an appropriate regimen based on manufacture recommendations to reduce the risk of ADEs. - Vanderbilt not currently on opioid-pain medications per [place] med list; may consider speaking with [facility] staff to determine if naloxone order can be discontinued. # SPASTICITY MANAGEMENT: - Current Regimen: Intrathecal baclofen pump (managed by [facility] SCI team); previously receiving Botox to bilateral upper extremities (last dose 12/26). was scheduled for repeat dose in Apr 2024 but did not keep appt. - Requesting SCI team assess spasticity management; Vanderbilt to have pump refilled on 10/03/24. # CARDIOMETABOLIC DISEASE SCREENING: - Will assess when updated labs/vitals are obtained and available to review. # SUMMARY OF CONSIDERATIONS/RECOMMENDATIO NS/OTHER FOR [facility] SCI TEAM: - Per ACIP, is due for a second COVID-19 2023/2024 dose as it has been >6 months since his last dose and he is >65 years of age. Requesting SCI team discuss recommendation with Vanderbilt during AE visit and provide vaccine if Vanderbilt agreeable. - Requesting SCI team assess pain control during AE visit. D/t hx of PUD and possible resumption of ASA, consider if can d/c ibuprofen and utilize APAP for pain. If NSAID therapy is necessary, consider the use of a MCCLAIN-2 selective NSAID, such as celecoxib. - Due to multiple manufacturers of lidocaine 4% patches, recommend speaking to [facility] staff and ensure 2 patches BID is an appropriate regimen based on manufacture recommendations to reduce the risk of ADEs. - not currently on opioid-pain medications per [place] med list; may consider speaking with [facility] staff to determine if naloxone order can be discontinued. - Requesting SCI MANAGER PURCHASING review and determine if Vanderbilt would benefit from resuming ASA 81 mg daily in the setting of prior CVA. - Requesting SCI team assess BP regimen and advise if Vanderbilt has a compelling indication for beta tim therapy. If not, consider transition from metoprolol to a first line antihypertensive agent, such as amlodipine. previously on amlodipine in the past but previously refused the medication d/t thinking it was not needed as he felt his BP was controlled without it. Switching to amlodipine would also reduce the number of pills the would need to take per day. Minutes spent on chart review: 45 PBM PharmD Pharmacotherapy Rem V12: Identify drug interaction Medication monitoring or diagnostic evaluation (e.g., other labs, EKG) Medication reconciliation (changes to active VA and non-VA medication lists to reconcile differences) Changes to medication lists made Discontinue or remove medication Add or renew medication Order, recommend, and/or administer immunization(s) /es/ Gregory Gonzalez, Yolis, BCACP SCI CLINICAL PHARMACIST Signed: 10/03/2024 10:50 Receipt Acknowledged By: 10/03/2024 12:21 /james/ GINI LAMAR RN, ANP- ADULT NURSE PRACTITIONER 10/13/2024 ADDENDUM STATUS: COMPLETED LABS: ----- SODIUM 140 mEq/L 10/12/2024 09:43 POTASSIUM 4.0 mEq/L 10/12/2024 09:43 CHLORIDE 107 mEq/L 10/12/2024 09:43 UREA NITROGEN 21.3 mg/dL 10/12/2024 09:43 CALCIUM 8.4 mg/dL 10/12/2024 09:43 PROTEIN 6.1 g/dL 10/12/2024 09:43 ALBUMIN 3.3 L g/dL 10/12/2024 09:43 ALKALINE PHOSPHATASE 90 U/L 10/12/2024 09:43 ALT/SGPT 20 U/L 10/12/2024 09:43 AST/SGOT 34 U/L 10/12/2024 09:43 TOTAL BILIRUBIN 0.5 mg/dL 10/12/2024 09:43 CARBON DIOXIDE 27 mEq/L 10/12/2024 09:43 GLUCOSE 81 mg/dL 10/12/2024 09:43 HGB 10.7 L g/dL 10/12/2024 09:43 HCT 34.1 % L 10/12/2024 09:43 TRIGLYCERIDE 71 mg/dL 10/12/2024 09:43 CHOLESTEROL 105 mg/dL 10/12/2024 09:43 HDL(New) 28 L mg/dL 10/12/2024 09:43 CALCULATED LDL 63 mg/dL 10/12/2024 09:43 FOLATE ([facility]) 17.6 ng/mL 10/12/2024 09:43 B12 358 pg/mL 10/12/2024 09:43 TSH 4.224 uIU/mL 10/12/2024 09:43 VITAMIN D, 25-HYDROXY 35.2 ng/mL 10/12/2024 09:43 VITAMIN D, 25-HYDROXY 37.6 ng/mL 10/14/2023 11:32 HGA1C 5.8 % 10/12/2024 09:43 CREATININE 0.95 mg/dL 10/12/2024 09:43 CYSTATIN C 10/12/2024@0943 1.70 10/14/2023@1132 1.40 CKD-EPI creatinine-cystatin equation (2020) Indexed eGFR: 54 mL/min/1.73m2 CKD-EPI creatinine-cystatin equation (2020) non-Indexed eGFR: 65 ml/min DEMOGRAPHICS: HT: 75 in [190.5 cm] (10/14/2023 08:00) WT: 173 lb [78.47 kg] (10/12/2024 09:25) BMI: 21.7 KG/M2 VITALS: ------- Measurement DT BP 10/12/2024 09:25 121/63 12/27/2023 13:00 138/88 11/24/2023 13:35 142/82 PULSE 76 (10/12/2024 09:25) Active and Recently Outpatient Medications (including Supplies): Active Outpatient Medications Status 1) BACLOFEN 2MG/ML PF INTRATHECAL AMP 40ML INJECT 80 MG/40 ML ACTIVE INTRATHECALLY EVERY 2 MONTHS FOR INTRATHECAL PUMP (ADMINISTER IN CLINIC) 2) CAMPHOR 0.5/MENTHOL 0.5% LOTION APPLY LIBERALLY TO AFFECTED ACTIVE AREA(S) THREE TIMES A DAY NEEDED - (EXTERNAL USE ONLY) Indication: FOR ITCHING 3) CATHETER ENGEL,LEG STRAP 2IN X 24IN USE STRAP ONCE A DAY ACTIVE Indication: TO SECURE CATHETER TUBING 4) CATHETER,PERRY 24FR 5CC BARD#[id number] USE CATHETER EVERY 2 ACTIVE WEEKS Indication: FOR URINARY RETENTION 5) HALOBETASOL PROPIONATE 0.05% OINT APPLY LIGHTLY TO AFFECTED ACTIVE AREA(S) TWICE DAILY (EXTERNAL USE ONLY) APPLY TO NEW BITES ON THE SKIN DAILY 6) HEMORRHOIDAL RTL OINT APPLY SPARINGLY RECTALLY TWICE DAILY ACTIVE NEEDED FOR RELIEF OF HEMORROIDAL DISCOMFORT. FOR EXTERNAL APPLICATION ONLY. 7) HYDROCORTISONE 2.5% CREAM APPLY SPARINGLY TO AFFECTED ACTIVE AREA(S) TWICE DAILY FOR EXTERNAL USE ONLY. Indication: FOR ECZEMATOUS DERMATITIS 8) URINARY DRAINAGE BAG BARD #[id number] USE BAG TO AFFECTED ACTIVE AREA(S) EVERY 2 WEEKS FOR URINARY CARE Active Non-VA Medications Status 1) Non-VA ACETAMINOPHEN 500MG TAB 1000MG BY MOUTH EVERY 6 HOURS ACTIVE NEEDED 2) Non-VA ASCORBIC ACID 500MG TAB 500MG BY MOUTH ONCE A DAY ACTIVE 3) Non-VA ASPIRIN 81MG EC TAB 81MG BY MOUTH ONCE A DAY ACTIVE 4) Non-VA ATORVASTATIN CALCIUM 80MG TAB 80MG BY MOUTH EVERY ACTIVE EVENING 5) Non-VA BISACODYL 10MG ENEMA CONTENTS OF 1 ENEMA RECTALLY ACTIVE TWICE DAILY NEEDED 6) Non-VA CRANBERRY EXTRACT CAP/TAB 1 CAP/TAB BY MOUTH TWICE A ACTIVE DAY 7) Non-VA DICLOFENAC NA 1% TOP GEL 4 GM TO AFFECTED AREA(S) ACTIVE FOUR TIMES A DAY NEEDED Indication: FOR PAIN 8) Non-VA DULOXETINE HCL 30MG EC CAP 30MG BY MOUTH TWICE A DAY ACTIVE Indication: FOR NERVE PAIN 9) Non-VA FERROUS SULFATE 325MG TAB 325MG BY MOUTH EVERY OTHER ACTIVE DAY 10) Non-VA FOLIC ACID 1MG TAB 1MG BY MOUTH ONCE A DAY ACTIVE 11) Non-VA GUAIFENESIN 600MG SA TAB 600MG BY MOUTH TWICE DAILY ACTIVE NEEDED 12) Non-VA HYDRALAZINE HCL 50MG TAB 50MG BY MOUTH TWICE A DAY ACTIVE 13) Non-VA HYDROXYZINE HCL 25MG TAB 25MG BY MOUTH THREE TIMES A ACTIVE DAY NEEDED Indication: FOR DERMATITIS 14) Non-VA LEVETIRACETAM 250MG TAB 250MG BY MOUTH TWICE A DAY ACTIVE Indication: FOR SEIZURES 15) Non-VA LOPERAMIDE HCL 2MG CAP 2MG BY MOUTH THREE TIMES A DAY ACTIVE NEEDED Indication: FOR DIARRHEA 16) Non-VA MAGNESIUM CITRATE LIQUID 1 BOTTLE BY MOUTH ONCE A DAY ACTIVE NEEDED 17) Non-VA METHENAMINE HIPPURATE 1GM TAB 1GM BY MOUTH TWICE A ACTIVE DAY 18) Non-VA METOPROLOL TARTRATE 50MG TAB 25MG BY MOUTH TWICE A ACTIVE DAY 19) Non-VA MICONAZOLE NITRATE 2% VAG CREAM APPLICATORFUL ACTIVE NEEDED 20) Non-VA MIRABEGRON 25MG SA TAB 25MG BY MOUTH ONCE A DAY ACTIVE 21) Non-VA NON-FORMULARY TAB CAMPHOR-MENTHOL 4-10% CREAM EVERY ACTIVE 4 HOURS NEEDED 22) Non-VA PANTOPRAZOLE NA 40MG EC TAB 40MG BY MOUTH TWICE A DAY ACTIVE 23) Non-VA POLYETHYLENE GLYCOL 3350 ORAL PWDR 1 CAPFUL BY MOUTH ACTIVE ONCE A DAY NEEDED 24) Non-VA POLYETHYLENE GLYCOL 3350 ORAL PWDR 1 CAPFUL BY MOUTH ACTIVE TWICE DAILY NEEDED 25) Non-VA POTASSIUM CL 20MEQ SA TAB (DISPERSIBLE) 20MEQ BY ACTIVE MOUTH TWICE A DAY 26) Non-VA PSYLLIUM ORAL PWD 1 TEASPOONFUL BY MOUTH ONCE A DAY ACTIVE NEEDED 27) Non-VA SENNOSIDES 8.6MG TAB 8.6MG BY MOUTH TWICE DAILY ACTIVE NEEDED Indication: FOR CONSTIPATION 28) Non-VA SIMETHICONE 80MG CHEW TAB 80MG BY MOUTH TWICE DAILY ACTIVE NEEDED 29) Non-VA ZINC OXIDE 20% OINT SPARINGLY TO AFFECTED AREA(S) ACTIVE NEEDED 37 Total Medications A/P: RECOMMENDATIONS/COMMENTS: # LABS: - Folate WNL; stable from 10/26 (19.5 ng/mL). taking folic acid 1 mg daily. - Continue to monitor folate per SCI team. - B12 WNL; stable from 10/26 (506 pg/mL). not taking B12 supplementation. - Continue to monitor B12 per SCI team. - TSH WNL. - Continue to monitor TSH per SCI team. - Potassium low on 10/10 at outside hospital. received IV potassium (dose unknown) and was discharged on KCL 20 mEq BID x 5 days. Potassium level at AE visit WNL. - Consider repeating potassium level in 2-4 weeks to reassess potassium level after short course repletion. - Vanderbilt taking ferrous sulfate 325 mg every other day. Most recent iron panel from 10/26 demonstrated a TSAT WNL. - Consider repeating iron panel with next set of routine labs to assess if iron supplementation still warranted. # BONE HEALTH: - Vitamin D WNL; stable from 10/26. Calcium and corrected calcium (9 mg/dL) WNL. not on vitamin D or calcium supplementation. - Continue to monitor calcium, albumin, and vitamin D per SCI team. # HYPERTENSION: - Current regimen: Metoprolol tartrate 25 mg PO BID + hydralazine 50 mg PO BID. - BP Goal <150/90 mmHg (per [facility]/D[facility]; age >/=60); BP at goal during AE visit. - Continue to monitor BP per SCI team. Vanderbilt on beta tim in the setting of basal septal hypertrophy (recommended to continue by outside film producer). # ASCVD (STATIN USE): - Vanderbilt currently on high-intensity statin therapy (atorvastatin 80 mg daily). Due to pt reported hx of multiple strokes, per the 2021 ACC Expert Consensus Decision Pathway, would be considered an adult with ASCVD at very high risk. Therefore, consider targeting LDL reduction of 50% or more from baseline and LDL <55 mg/dL. Unclear when statin initiated, so unknown baseline LDL. Most recent LDL slightly above goal (63 mg/dL). - Since prior LDL results near goal of <55 mg/dL, may consider continuing atorvastatin 80 mg daily or can consider changing to rosuvastatin 40 mg daily as rosuvastatin is associated with a greater LDL reduction. If statin changed, consider repeating LDL in 4-12 weeks. Continue to stress the importance of positive lifestyle modifications such as eating a heart- healthy diet, regular aerobic exercises, maintenance of desirable body weight and avoidance of tobacco products. # DIABETES SCREENING: - Most recent A1c elevated within pre-DM range; stable from 10/26 (6%). Vanderbilt has hx of multiple A1c readings within pre-DM. - Continue to monitor BG/A1c per SCI team. # RENAL DOSING: CKD-EPI creatinine-cystatin equation (2020) Indexed eGFR: 54 mL/min/1.73m2 CKD-EPI creatinine-cystatin equation (2020) non-Indexed eGFR: 65 ml/min - Over the past year, cystatin C has increased (1.4 --> 1.7 mg/L) but SCr remained stable (0.98 --> 0.95 mg/dL). Vanderbilt has reduced renal function and therefore, is at risk of accumulation of renally cleared drugs. - Current medications are dosed appropriately for the patient's renal function. # CARDIOMETABOLIC DISEASE SCREENING: - BMI MET goal of <22 kg/m2 - Use of medication for hypertension - HDL DID NOT MEET goal of MEN >40 mg/dL - TRIGLYCERIDES MET goal of <150 mg/dL - FBG MET goal of <100 mg/dL - VET has 2 risk factors listed above and will be screened on a yearly basis # SUMMARY OF CONSIDERATIONS/RECOMMENDATIO NS/OTHER: - Consider repeating iron panel with next set of routine labs to assess if iron supplementation still warranted. - Since prior LDL results near goal of <55 mg/dL, may consider continuing atorvastatin 80 mg daily or can consider changing to rosuvastatin 40 mg daily as rosuvastatin is associated with a greater LDL reduction. If statin changed, consider repeating LDL in 4-12 weeks. - Consider repeating potassium level in 2-4 weeks to reassess potassium level after short course repletion. Time spent on chart review: 15 minutes PBM PharmD Pharmacotherapy Rem V12: Medication monitoring or diagnostic evaluation (e.g., other labs, EKG) Medication reconciliation (changes to active VA and non-VA medication lists to reconcile differences) Changes to medication lists made Discontinue or remove medication Add or renew medication /es/ Gregory Gonzalez, PharmD, BCACP SCI CLINICAL PHARMACIST Signed: 10/16/2024 11:21 Receipt Acknowledged By: * AWAITING SIGNATURE * GINI LAMAR [facility]
--- OUTSIDE RECORDS SUMMARY | 2025-02-15 16:29 | XMS_ITS | Encounter Summary ---
Author Name [facility] Organization [facility] Address [address] [place] [address] Care Team Providers Care Expeller Worker Name Role Phone October Primary Care Provider [...] AID (WNR) Feb 02, 2015 MEDICAI D [id number] ABIMAEL ASKEW PATIENT MEDICARE (WNR) MEDICARE (M) PART B Jan 03, 2016 PART B [id number] ABIMAEL ASKEW PATIENT MEDICARE (WNR) MEDICARE (M) PART B Jan 03, 2016 PART B [id number] [phone] ABIMAEL ASKEW PATIENT MEDICARE (WNR) MEDICARE (M) PART A May 05, 2014 PART A [id number] ABIMAEL ASKEW PATIENT MEDICARE (WNR) MEDICARE (M) PART A May 05, 2014 PART A [id number] ABIMAEL ASKEW S PATIENT Selected Encounter This section includes the information on record at MD for the Encounter. Date/Time Encounter Type Encounter Description Reason Provider Source Apr 12, 2024 08:59 AM Outpatient Encounter COMMUNITY CARE CONSULT AMALIA DEVLIN Encounter Template Text not used by MD Plan of Treatment: Future Appointments (+ 6 months) and Future Tests (+/- 45 days) The Plan of Treatment section includes future care activities for the patient [facility] This section includes future appointments and future orders which are active, pending or scheduled. Future Appointments This section includes appointments that were scheduled to occur 6 months from the date of the Encounter, up to a maximum of 20 appointments. The data comes from all MD treatment facilities. Appointment Date/Time Appointment Type Appointme nt Facility Name May 17, 2024 01:30 PM AMBULATORY - [facility]AB [facility] May 31, 2024 09:00 AM AMBULATORY - SURGERY [facility] May 31, 2024 02:00 PM AMBULATORY - [facility]AB MEDICIN [facility] Jul 07, 2024 09:00 AM AMBULATORY - MEDICINE [facility] Aug 02, 2024 11:00 [facility], [facility]24 02:30 [facility] Aug 30, 2024 01:00 PM AMBULATORY - MEDICINE [facility] Oct 03, 2024 01:00 PM AMBULATORY - [facility] Social History: Smoking Status (Most current) and Tobacco Use (All prior to encounter date) This section includes the most current, and the historical, smoking and tobacco- related health factors from the MD facility where the Encounter took place. Current Smoking Status This section includes the most current smoking, or tobacco-related health factor, from the MD facility where the Encounter took place. Date/Time Current Smoking Status Han pablo Oct 09, 2017 03:41 AM CURRENT TOBACCO USER [facility] Tobacco Use History This section includes a history of the smoking, or tobacco-related health factors, that were collected on or before the date of the Encounter. The data comes from the MD facility where the Encounter took place. Date/Time Smoking Status/Tobacco Use Comment F acility Oct 08, 2017 09:04 PM ORYX ADMIT TOBACCO SCREEN NO [facility] May 31, 2016 06:37 PM LIFETIME NON-USER OF TOBACCO [facility] Aug 13, 2014 06:26 PM QUIT TOBACCO >7 YEARS AGO [facility] Jul 24, 2014 11:00 AM QUIT TOBACCO >7 YEARS AGO [facility] Jul 19, 2013 05:50 PM QUIT TOBACCO >7 YEARS AGO [facility] Apr 26, 2012 04:33 AM QUIT TOBACCO >7 YEARS AGO [facility] November 25, 2011 07:12 AM QUIT TOBACCO >7 YEARS AGO [facility] Jun 26, 2011 11:47 AM QUIT TOBACCO >7 YEARS AGO [facility] May 26, 2011 10:29 AM QUIT TOBACCO >7 YEARS AGO [facility] Feb 26, 2011 11:09 PM LIFETIME NON-USER OF TOBACCO [facility] Jan 24, 2011 03:35 AM LIFETIME NON-USER OF TOBACCO [facility] November 30, 2009 06:58 AM QUIT TOBACCO >7 YEARS AGO [facility] Jan 20, 2008 08:11 PM LIFETIME NON-USER OF TOBACCO [facility] Advance Directives: All historical and current Section Date Range: From patient's date of to the date document was created. This section includes ALL of a patient's completed or amended MD Advance and Rescinded Directives. The entries below indicate that a directive exists for the patient, but an actual copy is not included with this document. The data comes from all MD facilities. Date Advance Directives Provider Source Oct 12, 2024 ADVANCE DIRECTIVE RAHEEL MINER [facility] Oct 10, 2020 ADVANCE DIRECTIVE BARBY ALMAZAN [facility] Oct 10, 2020 RESCINDED ADVANCE DIRECTIVE BARBY ALMAZAN [facility] Oct 13, 2014 ADVANCE DIRECTIVE MENCHACASTEFANIE VITAL [facility] Apr 28, 2012 ADVANCE DIRECTIVE DISCUSSION DOMINGA CHILDS Gwendolyn [facility] Apr 08, 2006 ADVANCE DIRECTIVE MICHELINEPACHECO Moris [facility] Encounter Notes: All associated encounter notes This section contains the clinical notes associated to the Encounter. Date/Time Encounter Note(s) Provider Source Apr 12, 2024 08:59 AM NONVA NOTE: LOCAL TITLE: COMMUNITY CARE-CARE COORDINATION PLAN NOTE [address] [place] [address] STANDARD TITLE: NONVA NOTE DATE OF NOTE: APR 12, 2024@08:59 ENTRY DATE: APR 12, 2024@08:59:41 AUTHOR: PORSCHE DEVLIN EXP COSIGNER: URGENCY: STATUS: COMPLETED COMMUNITY CARE-CARE COORDINATION PLAN NOTE [id number] Community Care Consult: [facility] NEUROSURGERY Consult No: [id number] [facility] Referral #: [id number] Chief Complaint: Tetraplegia with intrathecal baclofen pump. Needs replacement estimated battery life is until May 2024. Patient Admitted? No Level of Care Coordination Complex/Chronic Care Coordination was determined from: Chart Review, Phone call to [place]/Family/Caregiver Facility Community Care Office Contact Care Coordination Point of Contact: Porsche Devlin RN Services: Moderate Care Coordination Services Case Management, if appropriate Direct communications with interdisciplinary team Plan: F/u with the to explain the process of Community Care. voiced understanding. Informed vet consult has been approved and he can schedule with his provider at [facility]. Advised vet cc will coordinate care between him/community provider. F/u will be made after the first initial appt also throughout the EOC and as needed. [place] is living at [facility]. /james/ PORSCHE HANNA RN REGISTERED NURSE Signed: 04/12/2024 09:19 06/12/2024 ADDENDUM STATUS: COMPLETED Appointment Management: Appointment 1 Other: NEUROSURGERY Appointment Location: Community Provider Appointment Date: May Reason for Appointment: SPINAL CORD INJURY POSSIBLE UTI /es/ DANNY CHAMBERS BSN RN REGISTERED NURSE Signed: 06/12/2024 13:12 06/12/2024 ADDENDUM STATUS: COMPLETED Care Coordination Follow Up Level of Care Coordination Complex/Chronic Care Coordination was determined from: Chart Review Services: Moderate Care Coordination Services Case Management, if appropriate Direct communications with interdisciplinary team Plan: WAS ADMITTED FOR BACLOFEN PUMP REVISION AND TESTING FOR UTI HAD SOME DELIRIUM WHILE HOSPITALIZED, RESOLVED ON DISCHARGE, PER NOTES NO EVIDENCE OF UTI FOLLOW UP FOR WOUND CHECK IN 2-3 WEEKS Appointment Management: Appointment 2 Other: NEUROSURGERY Appointment Location: Community Provider Appointment Date: Jun Reason for Appointment: FOLLOW UP/POST OP CHECK CONTACT contacted on Jun to discuss UNABLE TO CONTACT . CALLED NURSING FACILITY WHERE [place] LIV[facility] AND LEFT VM. Action Needed? No /es/ DANNY CASTILLON RN REGISTERED NURSE Signed: 06/12/2024 13:12 PORSCHE DEVLIN [facility]
--- OUTSIDE RECORDS SUMMARY | 2025-02-15 16:30 | XMS_ITS | Encounter Summary ---
Author Name [facility] [facility] [place] [facility] [place] Address [address] [place] [address] Care Team Providers Care Four Roll Calender Operator Name Role Phone October Primary Care Provider [...] AID (WNR) Feb 02, 2015 MEDICAI D [id number] [phone] ABIMAEL ASKEW PATIENT MEDICARE (WNR) MEDICARE (M) PART B Jan 03, 2016 PART B [id number] ABIMAEL ASKEW PATIENT MEDICARE (WNR) MEDICARE (M) PART B Jan 03, 2016 PART B [id number] ABIMAEL ASKEW PATIENT MEDICARE (WNR) MEDICARE (M) PART A May 05, 2014 PART A [id number] [phone] ABIMAEL ASKEW PATIENT MEDICARE (WNR) MEDICARE (M) PART A May 05, 2014 PART A [id number] ABIMAEL ASKEW PATIENT Selected Encounter This section includes the information on record at [place] for the Encounter. Date/Time Encounter Type Encounter Description Reason Provider Source Oct 19, 2024 03:30 PM NQHP OL DIG ASSMT&MGMT 5-10 CLINICAL PHARMACY ICD-10-CM R25.2 Cramp and spasm SHEILA SPRAGUE IHBelen Encounter Template Text not used by [place] Assessments - Encounter Diagnoses This section includes the primary and secondary diagnoses documented for the Encounter. Date/Time Primary/Secondary Diagnosis Diagnosis Name Provider Source Oct 19, 2024 03:38 PM PRIMARY Cramp and spasm SHEILA SPRAGUE [facility] Plan of Treatment: Future Appointments (+ 6 months) and Future Tests (+/- 45 days) The Plan of Treatment section includes future care activities for the patient from all [place] treatmentfacilities. This section includes future appointments and future orders which are active, pending or scheduled. Future Appointments This section includes appointments that were scheduled to occur 6 months from the date of the Encounter, up to a maximum of 20 appointments. The data comes from all [place] treatment facilities. Appointment Date/Time Appointment Type Appointme nt Facility Name Nov 01, 2024 10:30 AM AMBULATORY - NONE . [facility] Nov 01, 2024 11:00 AM AMBULATORY - SURGERY [facility] November 29, 2024 11:30 AM AMBULATORY - REHAB MEDICIN E [facility] Dec 06, 2024 10:00 AM AMBULATORY - REHAB MEDICIN E [facility] Jan 11, 2025 02:00 PM AMBULATORY - REHAB MEDICIN E [facility] Jan 17, 2025 11:00 AM AMBULATORY - MEDICINE [facility] Feb 07, 2025 11:30 AM AMBULATORY - REHAB MED[facility]IN [facility] Feb 13, 2025 01:00 PM AMBULATORY - REHAB [facility] Apr 10, 2025 01:00 PM AMBULATORY - REHAB [facility] Active, Pending, and Scheduled Orders This section includes a listing of several types of active, pending, and scheduled orders, including clinic medications orders, diagnostic test orders, procedure orders and consult orders; where the start date of the order is 45 days before the date of the Encounter or 45 days after the date of theEncounter. The data comes from all [facility] facilities. Test Date/Time Test Type Test Details Facility Name Oct 12, 2024 12:00 AM Laboratory - Chemi stry Order OCCULT BLOOD FIT X1 SCREEN STOOL FECES SP [facility] Oct 19, 2024 12:00 AM Laboratory - Chemi stry Order BASIC METABOLIC PANEL GREEN LI/HEP BLD/PLAS PLASMA SP [facility] Oct 19, 2024 12:00 AM Laboratory - Chemi stry Order IRON/TIBC PROFILE GOLD/RED SST SERUM SP [facility] Lab Results: +/- 30 days of the encounter This section includes the Chemistry and Hematology Lab Results [facility] with [facility]. Radiology Reports and Pathology Reports are provided separately, in subsequent sections. Lab Results This section contains the Chemistry/Hematology Results that were resulted 30 days before or 30 daysafter the date of the Encounter. Date/Time Source Result Type Result - Unit Interpretation Reference Range Specimen Type Comment Oct 12, 2024 09:[address] [facility] HGA1C BLOOD Specimen Type: BLOOD No comment entered. Ordering Provider: GINI LAMAR Report Released Date/Time: Aug 25, 2024 07:24 PM Reporting Lab: [facility] [phone] Performing Lab: [facility] [address] HGA1C 5.8 4.0-6.0 Oct 12, 2024 09:[address] [facility] FOLATE (STL-MA) SERUM Specimen Type: SERUM No comment entered. Ordering Provider: GINI LAMAR Report Released Date/Time: Aug 25, 2024 07:24 PM Reporting Lab: [facility] [phone] Performing Lab: [facility] [phone] FOLATE (STL-OH) 17.6 ng/mL 7-20 Oct 12, 2024 09:43 AM [facility] B12 SERUM Specimen Type: SERUM No comment entered. Ordering Provider: GINI LAMAR Report Released Date/Time: Aug 25, 2024 07:24 PM Reporting Lab: [facility] [phone] Performing Lab: [facility] [address] B12 358 pg/mL 213-816 Oct 12, 2024 09:[address] [facility] LIPID PANEL (STL) PLASMA Specimen Type: PLASM A Comment: No hemolysis noted. Ordering Provider: GINI LAMAR Report Released Date/Time: Aug 25, 2024 07:24 PM Reporting Lab: [facility] [phone] Performing Lab: [facility] [address] CHOLESTEROL 105 mg/dL 0-200 TRIGLYCERIDE 71 mg/dL 0-150 CALCULATED LDL 63 mg/dL See Interp HDL(New) 28 mg/dL L > 40 Oct 12, 2024 09:[address] [facility] VITAMIN D, 25-HYDROXY SERUM Specimen Type: SE RUM No comment entered. Ordering Provider: GINI LAMAR Report Released Date/Time: Aug 25, 2024 07:24 PM Reporting Lab: [facility] [phone] Performing Lab: [facility] [address] VITAMIN D, 25-HYDROXY 35.2 ng/mL 30-96 Oct 12, 2024 09:[address] [facility] TSH W/ REFLEX FT4 (STL) PLASMA Specimen Type: PLASMA No comment entered. Ordering Provider: GINI LAMAR Report Released Date/Time: Aug 25, 2024 07:24 PM Reporting Lab: [facility] [phone] Performing Lab: [facility] [address] TSH 4.224 u[IU]/mL 0.470-5.000 Oct 12, 2024 09:43 AM [facility] PREALBUMIN SERUM Specimen Type: SERUM No comment entered. Ordering Provider: GINI LAMAR Report Released Date/Time: Aug 25, 2024 07:24 PM Reporting Lab: [facility] [address] [facility] [phone] Performing Lab: [address] [address] PREALBUMIN 15 mg/dL L 16-42 Oct 12, 2024 09:43 AM [facility] CYSTATIN C EGFR PANELS (STL-PB-MA) PLASMA Spec imen Type: PLASMA Comment: Choice of which of the reported eGFR values to use depends on the clinical situation. For example, for patients with severe muscle wasting or reduced muscle mass, eGFR calculated using the 2012 cystatin equation may be preferred. Ordering Provider: GINI LAMAR Report Released Date/Time: Aug 25, 2024 07:24 PM Reporting Lab: [facility] [address] [place] [phone] Performing Lab: [address] [address] CYSTATIN C 1.70 mg/L 0.57-1.80 CKD-EPI CYSTATIN C (2011) 36.2 >60 CKD-EPI CREAT-CYSC (2020) 54.4 >60 CREATININE (STL) 0.95 mg/dL 0.7-1.3 Oct 12, 2024 09:43 AM [facility] COMPREHENSIVE METABOLIC PANEL PLASMA Specimen Type: PLASMA Comment: No hemolysis noted. Ordering Provider: GINI LAMAR Report Released Date/Time: Aug 25, 2024 07:24 PM Reporting Lab: [facility] [phone] Performing Lab: [facility] [phone] CREATININE 0.95 mg/dL 0.70-1.30 UREA NITROGEN 21.3 [...] 83.47 >60 Oct 12, 2024 09:43 AM [facility] CBC BLOOD Specimen Type: BLOOD No comment entered. Ordering Provider: GINI LAMAR Report Released Date/Time: Aug 25, 2024 07:24 PM Reporting Lab: [facility] [phone] Performing Lab: [facility] [phone] WBC 5.9 10*3/uL 3.6-11.2 RBC 3.78 10*6/uL [...] 0.60 BASOPHILS, ABSOLUTE 0.03 10*3/uL 0.00-0. 20 Vital Signs: All taken on the encounter date This section contains inpatient and outpatient Vital Signs collected on the date of the Encounter. Date/Time Temperature Pulse Blood Pressure Respiratory Rate SP02 Pain Height Weight Body Mass Index Source Oct 19, 2024 02:25 PM 98 69 122/67 16 [address] [facility] Social History: Smoking Status (Most current) and Tobacco Use (All prior to encounter date) This section includes the most current, and the historical, smoking and tobacco- related health factors from the [place] facility where the Encounter took place. Current Smoking Status This section includes the most current smoking, or tobacco-related health factor, from the [place] facility where the Encounter took place. Date/Time Current Smoking Status Comment Facil ity Oct 12, 2024 10:00 AM [place]-TOBACCO NEVER U SED CIGARETTES [facility] Tobacco Use History This section includes a history of the smoking, or tobacco-related health factors, that were collected on or before the date of the Encounter. The data comes from the [place] facility where the Encounter took place. Date/Time Smoking Status/Tobacco Use Comment F acility Oct 12, 2024 10:00 AM VA-TOBACCO NEVER U SED OTHER TYPE [facility] Sep 27, 2023 01:00 PM VA-TOBACCO NEVER USED [facility] Oct 15, 2022 08:00 AM VA-TOBACCO NEVER USED [facility] Oct 16, 2021 08:00 AM VA-TOBACCO FORMER USER [facility] Oct 16, 2021 08:00 AM VA-TOBACCO QUIT 15 YRS OR MORE [facility] Oct 10, 2020 08:00 AM VA-TOBACCO FORMER USER [facility] Oct 10, 2020 08:00 AM VA-TOBACCO QUIT 15 YRS OR MORE [facility] Oct 18, 2019 01:49 PM VA-TOBACCO FORMER USER [facility] Oct 18, 2019 01:49 PM VA-TOBACCO QUIT 15 YRS OR MORE [facility] Oct 18, 2019 01:49 PM VA-TOBACCO QUIT 5 TO < 15 YRS [facility] Oct 04, 2018 08:04 AM VA-TOBACCO FORMER USER [facility] Oct 04, 2018 08:04 AM VA-TOBACCO QUIT 15 YRS OR MORE [facility] Apr 06, 2011 03:10 PM QUIT TOBACCO >7 YEARS AGO [facility] Feb 02, 2011 03:20 PM LIFETIME NON-USER OF TOBACCO [facility] Aug 02, 2006 03:10 PM QUIT TOBACCO >7 YEARS AGO [facility] Apr 11, 2006 02:21 PM CURRENT NON-TOBACC O USER-HX OF USE [facility] Apr 11, 2006 02:21 PM TOBACCO TERMINATION STAGE [facility] Advance Directives: All historical and current Section Date Range: From patient's date of to the date document was created. This section includes ALL of a patient's completed or amended [place] Advance and Rescinded Directives. The entries below indicate that a directive exists for the patient, but an actual copy is not included with this document. The data comes from all [place] facilities. Date Advance Directives Provider Source Oct 12, 2024 ADVANCE DIRECTIVE RAHEEL MINER [facility] Oct 10, 2020 ADVANCE DIRECTIVE BARBY ALMAZAN [facility] Oct 10, 2020 RESCINDED ADVANCE DIRECTIVE BARBY ALMAZAN [facility] Oct 13, 2014 ADVANCE DIRECTIVE STEFANIE MENCHACA [facility] Apr 28, 2012 ADVANCE DIRECTIVE DISCUSSION DOMINGA CHILDS [facility] Apr 08, 2006 ADVANCE DIRECT[address] PACHECO [facility] Radiology Reports: +/- 30 days of the [...] the Encounter. The data comes from all [place] treatment facilities. 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 Report Status: Verified Date Reported: NOV 01, 2024 Date Verified: NOV 01, 2024 Technical Instructor Course Developer E-Sig:/ES/PACHECO MARTIN Report: Case #[id number] EXAM: Abdominal aortic ultrasound HISTORY:Screening for AAA [...] concur with these findings. 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 [...] hydronephrosis. Dictated by Celina Graham MD I, Pacheco Martin, have reviewed the images and report and concur with these findings. Primary Interpreting Staff: PACHECO MARTIN MD (Technical Instructor Course Developer) Primary Interpreting Resident: CELINA GRAHAM, Vascular & Interventional Manager Sap /PACHECO LI [facility] Encounter Notes: All associated encounter notes This section contains the clinical notes associated to the Encounter. Date/Time Encounter Note(s) Provider Source Oct 19, 2024 03:30 PM PHARMACY CONSULT: LOCAL TITLE: PHARMACY PRIOR APPROVAL CONSULT ST STANDARD TITLE: PHARMACY CONSULT DATE OF NOTE: OCT 19, 2024@15:30 ENTRY DATE: OCT 19, 2024@15:30:39 AUTHOR: SHEILA SPRAGUE COSIGNER: URGENCY: STATUS: COMPLETED The medical record has been reviewed with regard to this prior authorization drug request. Medication requested: ONABOTULINUMTOXINA 100 UNIT/TJ INJ Medication indication: spasticity Medical history relevant to this request: 74 yo SCI Vet with upper limb spasticity managed on repeat Botox inj to [place] upper extremities. Eligible for next repeat inj on/after 01/11/25. Last inj: 10/19/24. Next inj: ~01/21/25 (SCI RTC placed). Request approved, clinic med order entered Ordering Location: [facility] [place] Start Date/Time: 01/11/2025 10:00 Stop Date/Time: 02/01/2025 23:59 Current Status: ACTIVE Order #[id number] Medication: ONABOTULINUMTOXIN A (PA-F) INJ,PWDR 100UNT/TJ Instructions: 400 UNITS OF INTRAMUSCULAR ONE-TIME Text: 400 UNITS IM ONE-TIME Indication: FOR SPASTICITY Comments: MD to inject in clinic Dispense Drugs (units/dose): ONABOTULINUMTOXINA 100 UNIT/TJ INJ (4) Total Dose: 400 UNITS Schedule Type: ONE TIME The request is approved - No formulary-preferred alternative TIME REVIEWING CHART:6. (minutes) /james/ SHEILA SPRAGUE Clinical Pharmacist Specialist Signed: 10/19/2024 15:40 SHEILA SPRAGUE [facility]
--- OUTSIDE RECORDS SUMMARY | 2025-02-15 16:30 | XMS_ITS | Encounter Summary ---
Author Name [facility] [place] [facility] [place] Address [address] [place] [address] Care Team Providers Care Drier Operator Helper Name Role Phone October Primary Care Provider [...] AID (WNR) Feb 02, 2015 MEDICAI D [id number] ABIMAEL ASKEW PATIENT MEDICARE (WNR) MEDICARE (M) PART B Jan 03, 2016 PART B [id number] ABIMAEL ASKEW PATIENT MEDICARE (WNR) MEDICARE (M) PART B Jan 03, 2016 PART B [id number] ABIMAEL ASKEW PATIENT MEDICARE (WNR) MEDICARE (M) PART A May 05, 2014 PART A [id number] ABIMAEL ASKEW PATIENT MEDICARE (WNR) MEDICARE (M) PART A May 05, 2014 PART A [id number] ABIMAEL ASKEW PATIENT Selected Encounter This section includes the information on record at [place] for the Encounter. Date/Time Encounter Type Encounter Description Reason Provider Source Oct 12, 2024 09:00 AM OT EVAL HIGH COMPLEX 60 MIN SPINAL CORD INJURY ICD-10-CM G82.50 Quadriplegia, unspecified WEN JEFF IHE Encounter Template Text not used by [place] Assessments - Encounter Diagnoses This section includes the primary and secondary diagnoses documented for the Encounter. Date/Time Primary/Secondary Diagnosis Diagnosis Name Provider Source Oct 13, 2024 10:29 AM PRIMARY Quadriplegia, unspecified WEN JEFF [facility] Plan of Treatment: Future Appointments (+ 6 months) and Future Tests (+/- 45 days) The Plan of Treatment section includes future care activities for the patient from all [place] treatmentfacilities. This section includes future appointments and future orders which are active, pending or scheduled. Future Appointments This section includes appointments that were scheduled to occur 6 months from the date of the Encounter, up to a maximum of 20 appointments. The data comes from all [place] treatment facilities. Appointment Date/Time Appointment Type Appointme nt Facility Name Oct 19, 2024 02:00 PM AMBULATORY - REHAB MEDICIN E [facility] Nov 01, 2024 10:30 AM AMBULATORY - NONE [facility] Nov 01, 2024 11:00 AM AMBULATORY - SURGERY [facility] November 29, 2024 11:30 AM AMBULATORY - REHAB MEDICIN E [facility] Dec 06, 2024 10:00 AM AMBULATORY - REHAB MEDICIN E [facility] Jan 11, 2025 02:00 PM AMBULATORY - REHAB MEDICIN E [facility] Jan 17, 2025 11:00 AM AMBULATORY - MEDICINE [facility] Feb 07, 2025 11:30 AM AMBULATORY - REHAB MEDICIN E [facility] Feb 13, 2025 01:00 PM AMBULATORY - REHAB MEDICIN E [facility] Apr 10, 2025 01:00 PM AMBULATORY - REHAB MEDICIN E [facility] Active, Pending, and Scheduled Orders This section includes a listing of several types of active, pending, and scheduled orders, including clinic medications orders, diagnostic test orders, procedure orders and consult orders; where the start date of the order is 45 days before the date of the Encounter or 45 days after the date of theEncounter. The data comes from all [place] treatment facilities. Test Date/Time Test Type Test Details Facility Name Oct 12, 2024 12:00 AM Laboratory - Chemi stry Order OCCULT BLOOD FIT X1 SCREEN STOOL FECES SP [facility] Oct 19, 2024 12:00 AM Laboratory - Chemi stry Order IRON/TIBC PROFILE GOLD/RED SST SERUM SP [facility] Oct 19, 2024 12:00 AM Laboratory - Chemi stry Order BASIC METABOLIC PANEL GREEN LI/HEP BLD/PLAS PLASMA SP [facility] Lab Results: +/- 30 days of the encounter This section includes the Chemistry and Hematology Lab Results on record with [place] for the patient. Radiology Reports and Pathology Reports are provided separately, in subsequent sections. Lab Results This section contains the Chemistry/Hematology Results that were resulted 30 days before or 30 daysafter the date of the Encounter. Date/Time Source Result Type Result - Unit Interpretation Reference Range Specimen Type Comment Oct 12, 2024 09:43 AM [facility] HGA1C BLOOD Specimen Type: BLOOD No comment entered. Ordering Provider: GINI LAMAR Report Released Date/Time: Aug 25, 2024 07:24 PM Reporting Lab: [facility] [address] [facility] [id number] Performing Lab: [facility] [facility] [phone] HGA1C 5.8 4.0-6.0 Oct 12, 2024 09:43 AM [facility] FOLATE (STL-MA) SERUM Specimen Type: SERUM No comment entered. Ordering Provider: GINI LAMAR Report Released Date/Time: Aug 25, 2024 07:24 PM Reporting Lab: [facility] [facility] [phone] Performing Lab: [facility] [facility] [phone] FOLATE (STL-MA) 17.6 ng/mL 7-20 Oct 12, 2024 09:43 AM [facility] B12 SERUM Specimen Type: SERUM No comment entered. Ordering Provider: GINI LAMAR Report Released Date/Time: Aug 25, 2024 07:24 PM Reporting Lab: [facility] [facility] [phone] Performing Lab: [facility] [address] [facility] [address] B12 358 pg/mL 213-816 Oct 12, 2024 09:43 AM [facility] LIPID PANEL (STL) PLASMA Specimen Type: PLASM A Comment: No hemolysis noted. Ordering Provider: GINI LAMAR Report Released Date/Time: Aug 25, 2024 07:24 PM Reporting Lab: [facility] [facility] [phone] Performing Lab: [facility] [address] [facility] [address] CHOLESTEROL 105 mg/dL 0-200 TRIGLYCERIDE 71 mg/dL 0-150 CALCULATED LDL 63 mg/dL See Interp HDL(New) 28 mg/dL L > 40 Oct 12, 2024 09:43 AM [facility] VITAMIN D, 25-HYDROXY SERUM Specimen Type: SE RUM No comment entered. Ordering Provider: GINI LAMAR Report Released Date/Time: Aug 25, 2024 07:24 PM Reporting Lab: [facility] [address] [facility] [phone] Performing Lab: [facility] [address] [facility] [phone] VITAMIN D, 25-HYDROXY 35.2 ng/mL 30-96 Oct 12, 2024 09:43 AM [facility] TSH W/ REFLEX FT4 (STL) PLASMA Specimen Type: PLASMA No comment entered. Ordering Provider: GINI LAMAR Report Released Date/Time: Aug 25, 2024 07:24 PM Reporting Lab: [facility] [address] [facility] [phone] Performing Lab: [facility] [address] [facility] [address] TSH 4.224 u[IU]/mL 0.470-5.000 Oct 12, 2024 09:43 AM [facility] PREALBUMIN SERUM Specimen Type: SERUM No comment entered. Ordering Provider: GINI LAMAR Report Released Date/Time: Aug 25, 2024 07:24 PM Reporting Lab: [facility] [address] [facility] [address] Performing Lab: [address] [address] PREALBUMIN 15 mg/dL L 16-42 Oct 12, 2024 09:43 AM [facility] COMPREHENSIVE METABOLIC PANEL PLASMA Specimen Type: PLASMA Comment: No hemolysis noted. Ordering Provider: GINI LAMAR Report Released Date/Time: Aug 25, 2024 07:24 PM Reporting Lab: [facility] [address] [facility] [phone] Performing Lab: [facility] [address] [facility] [address] CREATININE 0.95 mg/dL 0.70-1.30 UREA NITROGEN 21.3 [...] 83.47 >60 Oct 12, 2024 09:43 AM [facility] CYSTATIN C EGFR PANELS (ST-PB-MA) PLASMA Spec imen Type: PLASMA Comment: Choice of which of the reported eGFR values to use depends on the clinical situation. For example, for patients with severe muscle wasting or reduced muscle mass, eGFR calculated using the 2011 cystatin equation may be preferred. Ordering Provider: GINI LAMAR Report Released Date/Time: Aug 25, 2024 07:24 PM Reporting Lab: [facility] [address] [facility] [address] Performing Lab: [facility] [address] [facility] [address] CYSTATIN C 1.70 mg/L 0.57-1.80 CKD-EPI CYSTATIN C (2011) 36.2 >60 CKD-EPI CREAT-CYSC (2020) 54.4 >60 CREATININE ([facility]) 0.95 mg/dL 0.7-1.3 Oct 12, 2024 09:43 AM [facility] CBC BLOOD Specimen Type: BLOOD No comment entered. Ordering Provider: GINI LAMAR Report Released Date/Time: Aug 25, 2024 07:24 PM Reporting Lab: [facility] [address] [facility] [address] Performing Lab: [facility] [address] [facility] [address] WBC 5.9 10*3/uL 3.6-11.2 RBC 3.78 10*6/uL [...] Height Weight Body Mass Index Source Oct 12, 2024 09:25 AM 98.3 76 121/63 15 94 7 173 22 [facility] Social History: Smoking Status (Most current) and Tobacco Use (All prior to encounter date) This section includes the most current, and the historical, smoking and tobacco- related health factors from the [place] facility where the Encounter took place. Current Smoking Status This section includes the most current smoking, or tobacco-related health factor, from the [place] facility where the Encounter took place. Date/Time Current Smoking Status Comment Chip ity Oct 12, 2024 10:00 AM VA-TOBACCO NEVER U SED CIGARETTES [facility] Tobacco Use History This section includes a history of the smoking, or tobacco-related health factors, that were collected on or before the date of the Encounter. The data comes from the [place] facility where the Encounter took place. Date/Time Smoking Status/Tobacco Use Comment F acility Oct 12, 2024 10:00 AM VA-TOBACCO NEVER U SED OTHER TYPE [facility] Sep 27, 2023 01:00 PM VA-TOBACCO NEVER USED [facility] Oct 15, 2022 08:00 AM VA-TOBACCO NEVER USED [facility] Oct 16, 2021 08:00 AM VA-TOBACCO FORMER USER [facility] Oct 16, 2021 08:00 AM VA-TOBACCO QUIT 15 YRS OR MORE [facility] Oct 10, 2020 08:00 AM VA-TOBACCO FORMER USER [facility] Oct 10, 2020 08:00 AM VA-TOBACCO QUIT 15 YRS OR MORE [facility] Oct 18, 2019 01:49 PM VA-TOBACCO FORMER USER [facility] Oct 18, 2019 01:49 PM VA-TOBACCO QUIT 15 YRS OR MORE [facility] Oct 18, 2019 01:49 PM VA-TOBACCO QUIT 5 TO < 15 YRS [facility] Oct 04, 2018 08:04 AM VA-TOBACCO FORMER USER [facility] Oct 04, 2018 08:04 AM VA-TOBACCO QUIT 15 YRS OR MORE [facility] Apr 06, 2011 03:10 PM QUIT TOBACCO >7 YEARS AGO [facility] Feb 02, 2011 03:20 PM LIFETIME NON-USER OF TOBACCO [facility] Aug 02, 2006 03:10 PM QUIT TOBACCO >7 YEARS AGO [facility] Apr 11, 2006 02:21 PM CURRENT NON-TOBACC O USER-HX OF USE [facility] Apr 11, 2006 02:21 PM TOBACCO TERMINATION STAGE [facility] Advance Directives: All historical and current Section Date Range: From patient's date of to the date document was created. This section includes ALL of a patient's completed or amended [place] Advance and Rescinded Directives. The entries below indicate that a directive exists for the patient, but an actual copy is not included with this document. The data comes from all [place] facilities. Date Advance Directives Provider Source Oct 12, 2024 ADVANCE DIRECTIVE RAHEEL MINER [facility] Oct 10, 2020 ADVANCE DIRECTIVE BARBY ALMAZAN [facility] Oct 10, 2020 RESCINDED ADVANCE DIRECTIVE BARBY ALMAZAN [facility] Oct 13, 2014 ADVANCE DIRECTIVE STEFANIE MENCHACA [facility] Apr 28, 2012 ADVANCE DIRECTIVE DISCUSSION DOMINGA CHILDS [facility] Apr 08, 2006 ADVANCE DIRECTIVE PACHECO TOBIAS [facility] Radiology Reports: +/- 30 days of the [...] the Encounter. The data comes from all [place] treatment facilities. Date/Time Radiology Report Provider Source Nov 01, 2024 10:16 AM US ABDOMEN AORTA ( AAA), LIMITED: JEROME ASKEW [id number] -1950 M Exm Date: NOV 01, 2024@10:16 Req Phys: Pat Loc: [facility]-SCI ANNUAL EVAL TICKET WORKER (Req'g L Img Loc: [facility]SCAR-ULTRASOUND Service: Unknown [facility], [address] [place] [address] (Case [id number] COMPLETE) US ABDOMEN AORTA (AAA), LIMITED (US Detailed) CPT:77255 Reason for Study: Screening for AAA Clinical History: Screen for abdominal aortic aneurysm in known male smoker. Report Status: Verified Date Reported: NOV 01, 2024 Date Verified: NOV 01, 2024 Heating Element Repairer E-Sig:/ES/PACHECO MARTIN Report: Case #[id number] EXAM: Abdominal aortic ultrasound HISTORY:Screening for AAA [...] aorta and its branches. Report dictated by Pacheco LOWERY M.D., have reviewed the images and report and concur with these findings. Primary Interpreting Staff: PACHECO MARTIN MD (Heating Element Repairer) Primary Interpreting Resident: CELINA GRAHAM, Vascular & Interventional Ambulance Assistant /PACHECO LI [facility] Oct 12, 2024 07:30 AM US LIMITED & RENAL COMP-P (SCI): JEROME ASKEW [id number] -1950 Exm Date: OCT 12, 2024@07:30 Req Phys: LAMAR Pat Loc: [facility]SCAR-SCI ANNUAL EVAL TICKET WORKER (Req'g L Img Loc: [facility]AR-ULTRASOUND Service: Unknown [facility], [address] [place] [address] (Case [id number] COMPLETE) US ABDOMEN LTD, SINGLE ORG OR SARY(US Detailed) CPT:85355 Reason for Study: sci annual (Case [id number] COMPLETE) US RENAL COMPLETE (US Detailed) CPT:26578 Clinical History: Report Status: Verified Date Reported: OCT 12, 2024 Date Verified: OCT 12, 2024 Heating Element Repairer E-Sig:/ES/PACHECO MARTIN Report: Case #: [id number], [id number] Exam: Renal and gallbladder ultrasound Comparison: 10/14/2023. [...] findings. Primary Interpreting Staff: PACHECO MARTIN MD (Heating Element Repairer) Primary Interpreting Resident: CELINA GRAHAM, Vascular & Interventional Ambulance Assistant /PACHECO LI [facility] Encounter Notes: All associated encounter notes This section contains the clinical notes associated to the Encounter. Date/Time Encounter Note(s) Provider Source Oct 12, 2024 10:31 AM SPINAL CORD INJURY ANNUAL EVALUATION NOTE: LOCAL TITLE: SCI OT ANNUAL EVALUATION ST STANDARD TITLE: SPINAL CORD INJURY ANNUAL EVALUATION NOTE DATE OF NOTE: OCT 12, 2024@10:31 ENTRY DATE: OCT 13, 2024@10:31:30 AUTHOR: WEN JEFF COSIGNER: URGENCY: STATUS: COMPLETED OT ANNUAL EVALUATION S: O: Refer to SCI THERAPY SCREENING ANNUAL EVAL for additional objective info. -UE FUNCTION: decline in R shoulder this date -HAND DOMINANCE: LEFT ROM: AROM R shoulder ~60; PROM R shoulder ~100/110 d/t pain (WFL in 2023) STRENGTH: Right Left STR STR Shoulder Flex: 3- 5 Shoulder Abd: 3- 5 IR: 2 5 ER: 2 5 Elbow Flex: 3+ 5 Ext: 4+ 5 Sup: 4+ 5 Pro: 4+ 5 Wrist Flex: 4+ 5 Wrist Ext: 4+ 5 MP Flex: 2- 3- MP Ext: 2- 3- Opposition: Unable to dig 1 *VET WEARS BILATERAL RESTING HAND SPLINTS AT NIGHT (consult dated 10/15/22) *cone splint- consult placed 10/16/21- reports never having received- does not want to re-address; uses a therapy cone in his L hand HS which is easier for to don/doff Indep. *[id number] W-711 Forearm Based Radial Nerve Splint for L (issued per consult 01/15/21)- reports that he received but it was missing parts? Has not been able to fully trial- not interested in re-ordering *Receives botox to B hands- next injection scheduled for 10/19/24 HAND FUNCTION: Right Left -Gross Mounter: -Lateral Pinch: -3-Pt Pinch: -Tip Pinch: COORDINATION: -Any changes w/functional fine or gross motor coordination over the past year? []Yes [X]No -Details: SENSATION: -Any changes to sensation over the past year? []Yes [X]No -Details: -Any new numbness/tingling/burning over the past year? []Yes [X]No -Details: APPROPRIATE FOR DR. HA REFERRAL? []Yes [X]No FUNCTIONAL SKILLS: Pt reports: [X] No functional change [] Functional change, Explain -Feeding: MENON; encouraged to resume using rocker knife after reports of difficulty w/cutting food -Grooming: MENON -Bathing: MOD -Upper Body Dressing: MOD -Lower Body Dressing: MAX>DEP -Toileting: MAX -Tub Transfer: DEP; Molift Raiser Pro -Toilet Transfer: DEP; Molift Raiser Pro -Bowel mgmt.: DEP; daily BOWEL PROGRAM (oral meds)- will start using supp -Bladder mgmt.: DEP; S/P Assistive Technology needs: SMART PHONE; returned VA-issued iPad w/2022 AE. Home Exercise Program/Needs: None ID at this time EQUIPMENT REQUESTS Pt. reports: [X]No equip needs [] Equipment Needs, Explain Pt. Educational Needs: ID and met A: 74Y[address] VET WITH C4 AIS D d/t MCA January, WHO LIVES IN A FPC, BUT MAKES THE MOST OF HIS SITUATION. [place] stable in [place] environment- no OT needs ID at this time. []OT f/u needs include: [X]Further OT not indicated. GOALS: Goal of SCI Occupational Therapy Annual Evaluation completed this date. [X] Equipment evaluation completed [X] Education completed P: [] Pt will be seen via [][facility]/ []Outpatient visit for SCI OT f/u needs [X] Pt will be assessed at next scheduled SCI Annual Evaluation Pt instructed to contact SCI OT should any new needs arise. /james/ WEN JEFF Occupational Therapist Signed: 10/13/2024 10:35 WEN JEFF [facility] Oct 12, 2024 09:37 AM SPINAL CORD INJURY ANNUAL EVALUATION NOTE: LOCAL TITLE: SCI THERAPY SCREENING ANNUAL EVALUATION [facility] STANDARD TITLE: SPINAL CORD INJURY ANNUAL EVALUATION NOTE DATE OF NOTE: OCT 12, 2024@09:37 ENTRY DATE: OCT 12, 2024@09:37:26 AUTHOR: WEN JEFF EXP COSIGNER: URGENCY: STATUS: COMPLETED SCI GENERAL THERAPY SCREENING EVALUATION OCCUPATIONAL THERAPY PHYSICAL THERAPY RECREATION THERAPY CDRS ALERT FOR INFO PURPOSES TRANSPORTATION/DRIVING: -[place] does not have an accessible vehicle -2008 [employer]las w/conversion (won through the [employer])(CONSULT DATED 07/22/21 for EZ-lock)- sold vehicle last week - drove from 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 Brief History: Incident included a large right periorbital bruise; C3-4 spinal stenosis, C5-6 spinal stenosis, C6 compression fracture, C5-6 cord edema, C4-5 anterolisthesis, T1 transverse process fracture, T7 compression fracture. 2 strokes. Px: ITB pump and spinal stimulator (2015) Other Indiv. Present: SCI/D PT- Uzma [place]'s Goals: -get back to walking again in therapy; all I can do now is stand up- I'm going downhill fast MOBILITY: -Any issues with current mobility equipment? SCI PT to address any ID needs. -Seizure activity within the past 6 mos; educ offered on VA-guidelines against use of powered wheeled mobility and to avoid driving until medical clearance and seizure-free for 6 mos -request for [facility] LIVING SITUATION: -Has your environment changed in past year? []yes [x]no -Comments: same NH x~18 yrs.; reports under new ownership -Has HISA been used? []Yes [X]No -Home Environment: [place] Lives at [facility]. -BATHROOM: -TOILET: TALL FIXTURE WITH RAILS- will discuss replacement w/[facility] -TUB/SHOWER: walk-in shower w/SHOWER CHAIR through [facility]-- states DME is meeting his needs at this time- educ offered on VA-issued DME but denies need at this time -BEDROOM: -TYPE OF BED AND EQUIPMENT: HOSPITAL BED through [facility] -MATTRESS: STANDARD MATTRESS through [facility] -Back-up/Waffle mattress in place? []Yes [X]No -LIFT: Molift Raiser Pro with L/XL strap (consult dated 10/22/21) -Do you have a caregiver? [X]yes- AVAILABLE 25/01 []No -Falls in past year: [X] No [] Yes -How many? -Circumstances: -Did fall result in injury? -Able to complete floor recovery? []Yes []No []n/a TRANSPORTATION/DRIVING: -[place] does not have an accessible vehicle -2008 [employer] w/conversion (won through the [facility])(CONSULT DATED 07/22/21 for EZ-lock)- sold vehicle last week -[place] drove from [facility] level; EZ lock in place -completed driving rehab in 2021- vet will f/u w/Pat and will need to wait until he's 6 mos seizure-free -[place]-travel PHYSICAL STATUS: -Changes in physical function in the past year? 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 [X]Yes []No -Does pt follow an EXERCISE program? [X]Yes []No -UBE/LE ther ex with weights and [place] pulleys -standing w/therapy -Does want additional education? [] Yes [X] No -Community Participation: [ ] interested in local/regional/national [facility] events [] local aquatics/gym [ ]adaptive sports/cycling/SCUBA - could not tolerate cold temps at [employer] pool w/[employer]; Aquatics here is too far to travel PAIN: -Any changes w/your pain over the past year? [X]Yes []No -New R shoulder pain -my R shoulder is killing me right now, hurts when I turn my neck -constant pain in low back and SI joint, burning, has stimulator SKIN: -Current skin status: Intact -History of skin breakdown: healed sacrum from shower chair -Re-educ to on [place] ACTIVITY: -Activity level over the past year? [] Increased [X] Decreased [] Same -d/t pain -Hours Out of Bed each day: ~12; 7am-7pm -Days Out of the House each Week: if it's above 70, I'm outside -Days Away from the House each Week: appt only at this time d/t selling van -Vet spends a typical day: latter day on Wednesday, read newspaper, TV programs; [employer] baseball SEXUAL HEALTH: -Do you have any concerns regarding sexual health? Not addressed this date. TIME SPENT: 30 mins. (including OT AE) SCI/D PT/OT/RT EQUIPMENT NEEDS: See SCI OT/PT AE for ID needs SCI/D PT/OT/RT EDUCATION NEEDS: ID and met /es/ WEN JEFF Occupational Therapist Signed: 10/13/2024 10:29 Receipt Acknowledged By: 10/13/2024 15:10 /es/ Harper Maxwell OTR/L, CDRS Occupational Therapist 10/13/2024 10:42 /es/ AIDA PORTILLO, PT WEN JEFF [facility]
--- OUTSIDE RECORDS SUMMARY | 2025-02-15 16:31 | XMS_ITS ---
Author Name [facility] Organization [facility] Address [address] [place] [address] Care Team Providers Care Clinical Coder Name Role Phone October Primary Care Provider [...] Member ID Insurance Provider's Telephone Number Policy Guerrero's Name Patient's Relationship to Policy Guerrero MEDICAID (WNR) MEDICAID MEDIC AID (WNR) Feb 02, 2015 MEDICAI D [id number] ABIMAEL ASKEW PATIENT MEDICARE (WNR) MEDICARE (M) PART B Jan 03, 2016 PART B [id number] [phone] ABIMAEL ASKEW PATIENT MEDICARE (WNR) MEDICARE (M) PART B Jan 03, 2016 PART B [id number] ABIMAEL ASKEW PATIENT MEDICARE (WNR) MEDICARE (M) PART A May 05, 2014 PART A [id number] [phone] ABIMAEL ASKEW PATIENT MEDICARE (WNR) MEDICARE (M) PART A May 05, 2014 PART A [id number] ABIMAEL ASKEW PATIENT Selected Encounter This section includes the information on record at [place] for the Encounter. Date/Time Encounter Type Encounter Description Reason Provider Source Oct 12, 2024 08:00 AM WHEELCHAIR MNGMENT TRAINING SPINAL CORD INJURY ICD-10-CM G82.51 Quadriplegia, C1-C4 complete AYDE PORTILLO [place] Encounter Template Text not used by [place] Assessments - Encounter Diagnoses This section includes the primary and secondary diagnoses documented for the Encounter. Date/Time Primary/Secondary Diagnosis Diagnosis Name Provider Source Oct 12, 2024 10:42 AM PRIMARY Quadriplegia, C1-C4 complete NATALIE PORTILLO [facility] Plan of Treatment: Future Appointments (+ 6 months) and Future Tests (+/- 45 days) The Plan of Treatment section includes future care activities for the patient from all [place] treatmentfacilities. This section includes future appointments and future orders which are active, pending or scheduled. Future Appointments This section includes appointments that were scheduled to occur 6 months from the date of the Encounter, up to a maximum of 20 appointments. The data comes from all [place] treatment facilities. Appointment Date/Time Appointment Type Appointme nt Facility Name Oct 19, 2024 02:00 PM AMBULATORY - REHAB MEDICIN E [facility] Nov 01, 2024 10:30 AM AMBULATORY - NONE [facility] Nov 01, 2024 11:00 AM [facility] November 29, 2024 11:30 AM [facility] Dec 06, 2024 10:00 AM [facility] Jan 11, 2025 02:00 PM [facility] Jan 17, 2025 11:00 AM AMBULATORY - MEDICINE [facility] Feb 07, 2025 11:30 AM [facility] Feb 13, 2025 01:00 PM AMBULATORY - REHAB MEDICIN E [facility] Apr 10, 2025 01:00 PM AMBULATORY - REHAB MEDICIN E [facility] Active, Pending, and Scheduled Orders This section includes a listing of several types of active, pending, and scheduled orders, including clinic medications orders, diagnostic test orders, procedure orders and consult orders; where the start date of the order is 45 days before the date of the Encounter or 45 days after the date of theEncounter. The data comes from all [place] treatment facilities. Test Date/Time Test Type Test Details Facility Name Oct 12, 2024 12:00 AM Laboratory - Chemi stry Order OCCULT BLOOD FIT X1 SCREEN STOOL FECES SP [facility] Oct 19, 2024 12:00 AM Laboratory - Chemi stry Order BASIC METABOLIC PANEL GREEN LI/HEP BLD/PLAS PLASMA SP [facility] Oct 19, 2024 12:00 AM Laboratory - Chemi stry Order IRON/TIBC PROFILE GOLD/RED SST SERUM SP [facility] Lab Results: +/- 30 days of the encounter This section includes the Chemistry and Hematology Lab Results on record with [place] for the patient. Radiology Reports and Pathology Reports are provided separately, in subsequent sections. Lab Results This section contains the Chemistry/Hematology Results that were resulted 30 days before or 30 daysafter the date of the Encounter. Date/Time Source Result Type Result - Unit Interpretation Reference Range Specimen Type Comment Oct 12, 2024 09:43 AM [facility] CBC BLOOD Specimen Type: BLOOD No comment entered. Ordering Provider: GINI LAMAR Report Released Date/Time: Aug 25, 2024 07:24 PM Reporting Lab: [facility] [facility] [address] Performing Lab: [facility] [address] WBC 5.9 10*3/uL 3.6-11.2 RBC 3.78 10*6/uL [...] 0.60 BASOPHILS, ABSOLUTE 0.03 10*3/uL 0.00-0. 20 Oct 12, 2024 09:43 AM [facility] COMPREHENSIVE METABOLIC PANEL PLASMA Specimen Type: PLASMA Comment: No hemolysis noted. Ordering Provider: GINI LAMAR Report Released Date/Time: Aug 25, 2024 07:24 PM Reporting Lab: [facility] [address] Performing Lab: [facility] [address] CREATININE 0.95 mg/dL 0.70-1.30 UREA NITROGEN 21.3 [...] 83.47 >60 Oct 12, 2024 09:43 AM [facility] LIPID PANEL (STL) PLASMA Specimen Type: PLASM A Comment: No hemolysis noted. Ordering Provider: GINI LAMAR Report Released Date/Time: Aug 25, 2024 07:24 PM Reporting Lab: [facility] [address] Performing Lab: [facility] [address] CHOLESTEROL 105 mg/dL 0-200 TRIGLYCERIDE 71 mg/dL 0-150 CALCULATED LDL 63 mg/dL See Interp HDL(New) 28 mg/dL L > 40 Oct 12, 2024 09:[address] [facility] HGA1C BLOOD Specimen Type: BLOOD No comment entered. Ordering Provider: GINI LAMAR Report Released Date/Time: Aug 25, 2024 07:24 PM Reporting Lab: [facility] [address] Performing Lab: [facility] [address] HGA1C 5.8 4.0-6.0 Oct 12, 2024 09:[address] [facility] B12 SERUM Specimen Type: SERUM No comment entered. Ordering Provider: GINI LAMAR Report Released Date/Time: Aug 25, 2024 07:24 PM Reporting Lab: [facility] [facility] [address] Performing Lab: [facility] [address] B12 358 pg/mL 213-816 Oct 12, 2024 09:43 AM [facility] FOLATE (STL-MA) SERUM Specimen Type: SERUM No comment entered. Ordering Provider: GINI LAMAR Report Released Date/Time: Aug 25, 2024 07:24 PM Reporting Lab: [facility] [address] Performing Lab: [facility] [facility] [address] FOLATE (STL-MA) 17.6 ng/mL 7-20 Oct 12, 2024 09:43 AM [facility] VITAMIN D, 25-HYDROXY SERUM Specimen Type: SE RUM No comment entered. Ordering Provider: GINI LAMAR Report Released Date/Time: Aug 25, 2024 07:24 PM Reporting Lab: [facility] [address] Performing Lab: [facility] [facility] [address] VITAMIN D, 25-HYDROXY 35.2 ng/mL 30-96 Oct 12, 2024 09:43 AM [facility] TSH W/ REFLEX FT4 (STL) PLASMA Specimen Type: PLASMA No comment entered. Ordering Provider: GINI LAMAR Report Released Date/Time: Aug 25, 2024 07:24 PM Reporting Lab: [facility] [address] Performing Lab: [facility] [address] [facility] [address] TSH 4.224 u[IU]/mL 0.470-5.000 Oct 12, 2024 09:43 AM [facility] PREALBUMIN SERUM Specimen Type: SERUM No comment entered. Ordering Provider: GINI LAMAR Report Released Date/Time: Aug 25, 2024 07:24 PM Reporting Lab: [facility] [address] [facility] [address] Performing Lab: [address] [address] PREALBUMIN 15 mg/dL L 16-42 Oct 12, 2024 09:43 AM [facility] CYSTATIN C EGFR PANELS (STL-PB-MA) PLASMA Spec [...] [facility] [address] [facility] [address] Performing Lab: [address] [facility] [address] CYSTATIN C 1.70 mg/L 0.57-1.80 CKD-EPI CYSTATIN C (2011) 36.2 >60 CKD-EPI CREAT-CYSC (2020) 54.4 >60 CREATININE (STL) 0.95 mg/dL 0.7-1.3 Vital Signs: All taken on the encounter date This section contains inpatient and outpatient Vital Signs collected on the date of the Encounter. Date/Time Temperature Pulse Blood Pressure Respiratory Rate SP02 Pain Height Weight Body Mass Index Source Oct 12, 2024 09:25 AM 98.3 76 121/63 15 94 7 173 22 [facility] Social History: Smoking Status (Most current) and Tobacco Use (All prior to encounter date) This section includes the most current, and the historical, smoking and tobacco- related health factors from the [place] facility where the Encounter took place. Current Smoking Status This section includes the most current smoking, or tobacco-related health factor, from the [place] facility where the Encounter took place. Date/Time Current Smoking Status Comment Chip ity Oct 12, 2024 10:00 AM VA-TOBACCO NEVER U SED CIGARETTES [facility] Tobacco Use History This section includes a history of the smoking, or tobacco-related health factors, that were collected on or before the date of the Encounter. The data comes from the [place] facility where the Encounter took place. Date/Time Smoking Status/Tobacco Use Comment F acility Oct 12, 2024 10:00 AM VA-TOBACCO NEVER U SED OTHER TYPE [facility] Sep 27, 2023 01:00 PM VA-TOBACCO NEVER USED [facility] Oct 15, 2022 08:00 AM VA-TOBACCO NEVER USED [facility] Oct 16, 2021 08:00 AM VA-TOBACCO FORMER USER [facility] Oct 16, 2021 08:00 AM VA-TOBACCO QUIT 15 YRS OR MORE [facility] Oct 10, 2020 08:00 AM VA-TOBACCO FORMER USER [facility] Oct 10, 2020 08:00 AM VA-TOBACCO QUIT 15 YRS OR MORE [facility] Oct 18, 2019 01:49 PM VA-TOBACCO FORMER USER [facility] Oct 18, 2019 01:49 PM VA-TOBACCO QUIT 15 YRS OR MORE [facility] Oct 18, 2019 01:49 PM VA-TOBACCO QUIT 5 TO < 15 YRS [facility] Oct 04, 2018 08:04 AM VA-TOBACCO FORMER USER [facility] Oct 04, 2018 08:04 AM VA-TOBACCO QUIT 15 YRS OR MORE [facility] Apr 06, 2011 03:10 PM QUIT TOBACCO >7 YEARS AGO [facility] Feb 02, 2011 03:20 PM LIFETIME NON-USER OF TOBACCO [facility] Aug 02, 2006 03:10 PM QUIT TOBACCO >7 YEARS AGO [facility] Apr 11, 2006 02:21 PM CURRENT NON-TOBACC O USER-HX OF USE [facility] Apr 11, 2006 02:21 PM TOBACCO TERMINATION STAGE [facility] Advance Directives: All historical and current Section Date Range: From patient's date of to the date document was created. This section includes ALL of a patient's completed or amended [place] Advance and Rescinded Directives. The entries below indicate that a directive exists for the patient, but an actual copy is not included with this document. The data comes from all [place] facilities. Date Advance Directives Provider Source Oct 12, 2024 ADVANCE DIRECTIVE RAHEEL MINER [facility] Oct 10, 2020 ADVANCE DIRECTIVE [facility] Oct 10, 2020 RESCINDED ADVANCE DIRECTIVE BARBY ALMAZAN [facility] Oct 13, 2014 ADVANCE DIRECTIVE STEFANIE [facility] Apr 28, 2012 ADVANCE DIRECTIVE DISCUSSION DOM[facility]A [facility] Apr 08, 2006 ADVANCE DIRECTIVE PACHECO TOBIAS Gwendolyn [facility] Radiology Reports: +/- 30 days of [...] the Encounter. The data comes from all [place] treatment facilities. Date/Time Radiology Report Provider Source Nov 01, 2024 10:16 AM US ABDOMEN AORTA ( AAA), LIMITED: JEROME ASKEW [id number] -1950 M Exm Date: NOV 01, 2024@10:16 Req Phys: LAMAR Pat Loc: [facility] ANNUAL EVAL MANAGER SHIFT (Req'g L Img Loc: [facility]-ULTRASOUND Service: Unknown [facility] [address] [place] [address] (Case [id number] COMPLETE) US ABDOMEN AORTA (AAA), LIMITED (US Detailed) CPT:94423 Reason for Study: Screening for AAA Clinical History: Screen for abdominal aortic aneurysm in known male smoker. Report Status: Verified Date Reported: NOV 01, 2024 Date Verified: NOV 01, 2024 Supervisor [employer] E-Sig:/ES/PACHECO MARTIN Report: Case #[id number] EXAM: Abdominal aortic ultrasound HISTORY:Screening for AAA [...] findings. Primary Interpreting Staff: PACHECO MARTIN MD (Supervisor [employer]) Primary Interpreting Resident: CELINA GRAHAM, Vascular & Interventional Enamel Buffer /PACHECO LI [facility] Oct 12, 2024 07:30 AM US LIMITED & RENAL COMP-P (SCI): JEROME ASKEW [id number] -1950 M Exm Date: OCT 12, 2024@07:30 Req Phys: BRIANDA Pat Loc: [facility] ANNUAL EVAL MANAGER SHIFT (Req'g L Img Loc: [facility] Service: Unknown [facility] [address] [place] [address] (Case [id number] COMPLETE) US ABDOMEN LTD, SINGLE ORG OR SARY(US Detailed) CPT:84902 Reason for Study: sci annual (Case [id number] COMPLETE) US RENAL COMPLETE (US Detailed) CPT:46712 Clinical History: Report Status: Verified Date Reported: OCT 12, 2024 Date Verified: OCT 12, 2024 Supervisor [employer] E-Sig:/ES/PACHECO MARTIN Report: Case #: [id number], [id number] Exam: Renal and gallbladder ultrasound Comparison: 10/14/2023. [...] findings. Primary Interpreting Staff: PACHECO MARTIN MD (Supervisor [employer]) Primary Interpreting Resident: CELINA GRAHAM, Vascular & Interventional Enamel Buffer /PACHECO LI [facility] Encounter Notes: All associated encounter notes This section contains the clinical notes associated to the Encounter. Date/Time Encounter Note(s) Provider Source Oct 12, 2024 07:45 AM SPINAL CORD INJURY ANNUAL EVALUATION NOTE: LOCAL TITLE: SCI PT ANNUAL EVALUATION ST STANDARD TITLE: SPINAL CORD INJURY ANNUAL EVALUATION NOTE DATE OF NOTE: OCT 12, 2024@07:45 ENTRY DATE: OCT 12, 2024@07:45:50 AUTHOR: AIDA PORTILLO EXP COSIGNER: URGENCY: STATUS: COMPLETED SCI PHYSICAL THERAPY ANNUAL EVALUATION PT NEEDS -no needs at this time, again Vet instructed VA does not endorse use of his VA issued PWC or driving until he is seizure free x 6 mo. Vet offered a manual tilt in space or mwc, vet declined. Vet also refusing memory/cog screening today. 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 -2 strokes Precautions: ITB pump and spinal stimulator (2014), [facility] & local DME company used: 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 ()no () yes -R shoulder pain noted with head turn to right getting worse since my accident Rating: ()0()1()2()3()4()5()6()7()8 ()9()10 SKIN: Current skin status: (x)intact ()impaired ()resolved h/o sacral issues but resolved Do you do Pressure Reliefs(MS)? Ed again to vet on MS Ed to vet from PT on below. Also letting vet know because he has sensory and is able to tell when he needs to move to decreased discomfort or pain, he is fortunate to not have to worry as much as if he had no sensory. 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 events, [ ] local aquatics/gym [ ] adaptive sports/cycling/[employer] Functional changes over the past year: 2024: recent hospitalizations over past 6 mo, AMS question ITB pump and Baclofen levels, seizures, CVAs. LE PROM:WFL for seated and supine functional positions Hips to 90 deg before vet wanting to stop due to ITB and batteries? LOWER EXTREMITY STRENGTH: (Scale: 0-5, 0=absent, 1=trace,2=poor, 3=fair, 4=good, 5=normal) 2023 2024 MM FUNCTION R L R L HIP FLEX 2- 2- 1+ 2- HIP EXT 2- 2+ HIP AB 2- 2- 1 1 HIP ADD 2 2+ 2- T 2 T KNEE EXTENSION 2+ 3- 2- 2 KNEE FLEXION 2- 2+ ANKLE DF 2- 3 1+ 2- ANKLE PF 1+ 2+ 1 2- LONG TOE EXT (T=Tone) SPASTICITY(MAS): 1 MAS LE's extensor MOBILITY: IN HOME-PWC IN COMMUNITY-PWC -Falls in the past year: [] Yes [x] No -How many? -Circumstances: -Did fall result in injury? -Able to complete floor recovery? []Yes []xNo []n/a Transfers:Cesilia lift at [place] 2024: doing standing with restorative care and some LE strengthening -reports more limited ability to walk with staff due to short staffing, very frustrated and upset with nursing facility for many issues shared. TRANSPORTATION: 2024: Vet sold his van last week too much to keep it going. 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 WHEELCHAIRS: 2021(December) [employer] SN:[id number] ALL 4 SEATING FXNS with Active reach 30 deg, KEREN R, EZ LOCK -QS Roho hp, has custom metal lg cup guerrero on front right seat goff (no backup PWC due to residing in LTCF, vet reported giving away his old one) ASSESSMENT: [x]Pt has PT needs met [x]Further PT not indicated []OTHER: GOALS: [] Equipment evaluation completed [x] Education completed EQUIPMENT ORDERED/NEEDED: []NO equipment needed [x]equipment needs, explain: Vet to return for OP SCI Visit to further look at seating and positioning in new [employer] F5.Will await for return of Leonardo Rica in 2 wks. PLAN: Plan to continue f/u prn for DME needs/ SCI Rehab needs -and- in conjunction with SCI Annual Evaluations. /james/ AIDA PORTILLO PT Signed: 10/12/2024 10:42 Receipt Acknowledged By: 10/12/2024 11:13 /james/ STANISLAV KING Title I Assistant AIDA PORTILLO [facility]
--- OUTSIDE RECORDS SUMMARY | 2025-02-15 16:31 | XMS_ITS ---
Author Name [facility] [place] Organization [place] Address [address] [place] [address] Care Team Providers Care Technologist Infectious Disease Name Role Phone October Primary Care Provider [...] AID (WNR) Feb 02, 2015 MEDICAI D [id number] ABIMAEL ASKEW PATIENT MEDICARE (WNR) MEDICARE (M) PART B Jan 03, 2016 PART B [id number] [phone] ABIMAEL ASKEW PATIENT MEDICARE (WNR) MEDICARE (M) PART B Jan 03, 2016 PART B [id number] ABIMAEL ASKEW PATIENT MEDICARE (WNR) MEDICARE (M) PART A May 05, 2014 PART A [id number] ABIMAEL ASKEW PATIENT MEDICARE (WNR) MEDICARE (M) PART A May 05, 2014 PART A [id number] ABIMAEL ASKEW PATIENT Selected Encounter This section includes the information on record at [place] for the Encounter. Date/Time Encounter Type Encounter Description Reason Provider Source Oct 15, 2024 08:54 AM Outpatient Encounter GENERAL INTERNAL MEDICINE HANNA CAMPOS IHE Encounter Template Text not used by [place] Plan of Treatment: Future Appointments (+ 6 months) and Future Tests (+/- 45 days) The Plan of Treatment section includes future care activities for the patient from all [place] [facility]. This section includes future appointments and future orders which are active, pending or scheduled. Future Appointments This section includes appointments that were scheduled to occur 6 months from the date of the Encounter, up to a maximum of 20 appointments. The data comes from all [place] treatment facilities. Appointment Date/Time Appointment Type Appointme nt Facility Name Oct 19, 2024 02:00 PM AMBULATORY - REHAB MEDICIN E [facility] Nov 01, 2024 10:30 AM [facility]ULATORY - NONE [facility] Nov 01, 2024 11:00 AM AMBULATORY - SURGERY [facility] November 29, 2024 11:30 AM AMBULATORY - REHAB MEDICIN E [facility] Dec 06, 2024 10:00 AM AMBULATORY - REHAB MEDICIN E [facility] Jan 11, 2025 02:00 PM AMBULATORY - REHAB MEDICIN E [facility] Jan 17, 2025 11:00 AM AMBULATORY - MEDICINE [facility] Feb 07, 2025 11:30 AM [facility] Feb 13, 2025 01:00 PM AMBULATORY - REHAB MEDICIN E [facility] Apr 10, 2025 01:00 PM AMBULATORY - [facility]ICIN [facility] Active, Pending, and Scheduled Orders This section includes a listing of several types of active, pending, and scheduled orders, including clinic medications orders, diagnostic test orders, procedure orders and consult orders; where the start date of the order is 45 days before the date of the Encounter or 45 days after the date of theEncounter. The data comes from all [place] treatment facilities. Test Date/Time Test Type Test Details Facility Name Oct 12, 2024 12:00 AM Laboratory - Chemi stry Order OCCULT BLOOD FIT X1 SCREEN STOOL FECES SP [facility] Oct 19, 2024 12:00 AM Laboratory - Chemi stry Order IRON/TIBC PROFILE GOLD/RED SST SERUM SP [facility] Oct 19, 2024 12:00 AM Laboratory - Chemi stry Order BASIC METABOLIC PANEL GREEN LI/HEP BLD/PLAS PLASMA SP [facility] Lab Results: +/- 30 days of the encounter This section includes the Chemistry and Hematology Lab Results on record with [place] for the patient. Radiology Reports and Pathology Reports are provided separately, in subsequent sections. Lab Results This section contains the Chemistry/Hematology Results that were resulted 30 days before or 30 daysafter the date of the Encounter. Date/Time Source Result Type Result - Unit Interpretation Reference Range Specimen Type Comment Oct 12, 2024 09:43 AM [facility] HGA1C BLOOD Specimen Type: BLOOD No comment entered. Ordering Provider: GINI LAMAR Report Released Date/Time: Aug 25, 2024 07:24 PM Reporting Lab: [facility] [facility] [address] Performing Lab: [facility] [address] HGA1C 5.8 4.0-6.0 Oct 12, 2024 09:43 AM [facility] FOLATE (STL-MA) SERUM Specimen Type: SERUM No comment entered. Ordering Provider: GINI LAMAR Report Released Date/Time: Aug 25, 2024 07:24 PM Reporting Lab: [facility] [address] Performing Lab: [facility] [address] FOLATE (STL-MA) 17.6 ng/mL 7-20 Oct 12, 2024 09:43 AM [facility] B12 SERUM Specimen Type: SERUM No comment entered. Ordering Provider: GINI LAMAR Report Released Date/Time: Aug 25, 2024 07:24 PM Reporting Lab: [facility] [address] Performing Lab: [facility] [address] B12 358 pg/mL 213-816 Oct 12, 2024 09:43 AM [facility] LIPID PANEL (STL) PLASMA Specimen Type: PLASM A Comment: No hemolysis noted. Ordering Provider: GINI LAMAR Report Released Date/Time: Aug 25, 2024 07:24 PM Reporting Lab: [facility] [address] Performing Lab: [facility] [address] CHOLESTEROL 105 mg/dL 0-200 TRIGLYCERIDE 71 mg/dL 0-150 CALCULATED LDL 63 mg/dL See Interp HDL(New) 28 mg/dL L > 40 Oct 12, 2024 09:43 AM [facility] VITAMIN D, 25-HYDROXY SERUM Specimen Type: SE RUM No comment entered. Ordering Provider: GINI LAMAR Report Released Date/Time: Aug 25, 2024 07:24 PM Reporting Lab: [facility] [address] Performing Lab: [facility] [address] VITAMIN D, 25-HYDROXY 35.2 ng/mL 30-96 Oct 12, 2024 09:43 AM [facility] TSH W/ REFLEX FT4 (STL) PLASMA Specimen Type: PLASMA No comment entered. Ordering Provider: GINI LAMAR Report Released Date/Time: Aug 25, 2024 07:24 PM Reporting Lab: [facility] [address] Performing Lab: [facility] [address] TSH 4.224 u[IU]/mL 0.470-5.000 Oct 12, 2024 09:43 AM [facility] PREALBUMIN SERUM Specimen Type: SERUM No comment entered. Ordering Provider: GINI LAMAR Report Released Date/Time: Aug 25, 2024 07:24 PM Reporting Lab: [facility] [address] [facility] [address] Performing Lab: [facility] [address] [address] PREALBUMIN 15 mg/dL L 16-42 Oct 12, 2024 09:43 AM [facility] COMPREHENSIVE METABOLIC PANEL PLASMA Specimen Type: PLASMA Comment: No hemolysis noted. Ordering Provider: GINI LAMAR Report Released Date/Time: Aug 25, 2024 07:24 PM Reporting Lab: [facility] [address] Performing Lab: [facility] [address] [facility] [address] CREATININE 0.95 mg/dL 0.70-1.30 UREA NITROGEN 21.3 [...] 83.47 >60 Oct 12, 2024 09:43 AM [facility] CYSTATIN C EGFR PANELS (STL-PB-MA) PLASMA [...] 07:24 PM Reporting Lab: [facility] [address] [facility] [address] Performing Lab: [facility] [address] [facility] [address] CYSTATIN C 1.70 mg/L 0.57-1.80 CKD-EPI CYSTATIN C (2011) 36.2 >60 CKD-EPI CREAT-CYSC (2020) 54.4 >60 CREATININE (STL) 0.95 mg/dL 0.7-1.3 Oct 12, 2024 09:43 AM [facility] CBC BLOOD Specimen Type: BLOOD No comment entered. Ordering Provider: GINI LAMAR Report Released Date/Time: Aug 25, 2024 07:24 PM Reporting Lab: [facility] [facility] [address] Performing Lab: [facility] [facility] [address] WBC 5.9 10*3/uL 3.6-11.2 RBC 3.78 10*6/uL [...] and tobacco- related health factors from the [place] facility where the Encounter took place. Current Smoking Status This section includes the most current smoking, or tobacco-related health factor, from the [place] facility where the Encounter took place. Date/Time Current Smoking Status Comment Chip pablo Oct 09, 2017 03:41 AM CURRENT TOBACCO USER [facility] Tobacco Use History This section includes a history of the smoking, or tobacco-related health factors, that were collected on or before the date of the Encounter. The data comes from the [place] facility where the Encounter took place. Date/Time Smoking Status/Tobacco Use Comment Moris grady Oct 08, 2017 09:04 PM ORYX ADMIT TOBACCO SCREEN NO [facility] May 31, 2016 06:37 PM LIFETIME NON-USER OF TOBACCO [facility] Aug 13, 2014 06:26 PM QUIT TOBACCO >7 YEARS AGO [facility] Jul 24, 2014 11:00 AM QUIT TOBACCO >7 YEARS AGO [facility] Jul 19, 2013 05:50 PM QUIT TOBACCO >7 YEARS AGO [facility] Apr 26, 2012 04:33 AM QUIT TOBACCO >7 YEARS AGO [facility] November 25, 2011 07:12 AM QUIT TOBACCO >7 YEARS AGO [facility] Jun 26, 2011 11:47 AM QUIT TOBACCO >7 YEARS AGO [facility] May 26, 2011 10:29 AM QUIT TOBACCO >7 YEARS AGO [facility] Feb 26, 2011 11:09 PM LIFETIME NON-USER OF TOBACCO [facility] Jan 24, 2011 03:35 AM LIFETIME NON-USER OF TOBACCO [facility] November 30, 2009 06:58 AM QUIT TOBACCO >7 YEARS AGO [facility] Jan 20, 2008 08:11 PM LIFETIME NON-USER OF TOBACCO [facility] Advance Directives: All historical and current Section Date Range: From patient's date of to the date document was created. This section includes ALL of a patient's completed or amended [place] Advance and Rescinded Directives. The entries below indicate that a directive exists for the patient, but an actual copy is not included with this document. The data comes from all [place] facilities. Date Advance Directives Provider Source Oct 12, 2024 ADVANCE DIRECTIVE RAHEEL MINER [facility] Oct 10, 2020 ADVANCE DIRECTIVE BARBY ALMAZAN [facility] Oct 10, 2020 RESCINDED ADVANCE DIRECTIVE BARBY ALMAZAN [facility] Oct 13, 2014 ADVANCE DIRECTIVE STEFAINE MENCHACA [facility] Apr 28, 2012 ADVANCE DIRECTIVE DISCUSSION AMADEODOMINGA Jose [facility] Apr 08, 2006 ADVANCE DIRECTIVE MICHELINEPACHECO GALLARDO [facility] Radiology Reports: +/- 30 days of [...] the Encounter. The data comes from all [place] treatment facilities. 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 Report Status: Verified Date Reported: NOV 01, 2024 Date Verified: NOV 01, [address] E-Sig:/ES/PACHECO MARTIN Report: Case #[id number] EXAM: Abdominal aortic ultrasound HISTORY:Screening for AAA [...] findings. 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 [...] findings. Primary Interpreting Staff: PACHECO MARTIN MD (Maintenance Of Way Clerk) Primary Interpreting Resident: CELINA GRAHAM, Vascular & Interventional Customer Experience Consultant /PACHECO LI [facility] Encounter Notes: All associated encounter notes This section contains the clinical notes associated to the Encounter. Date/Time Encounter Note(s) Provider Source Oct 07, 2024 08:54 AM NONVA NOTE: LOCAL TITLE: [facility] PRESENTING CARE COORD PLAN STANDARD TITLE: NONVA NOTE DATE OF NOTE: OCT 07, 2024@08:54 ENTRY DATE: OCT 15, 2024@08:54:55 AUTHOR: CHELSEA CAMPOS EXP COSIGNER: URGENCY: STATUS: COMPLETED Emergency Notification Intake Date Presenting to the Facility: Oct Method of Contact: Submitted to Centralized Call Center Notification ID: [id number] [facility] Referral #: [id number] [facility] Name: Hospital: [facility] Address: [facility]: [address] State: [place] Zip Code: Phone : [facility] Facility Point of Contact: Name: Phone: Chief complaint: UTI Primary Diagnosis: Disposition Discharged Date of discharge: Oct [facility]charge to [facility] [place] records sent securely to [place] PCP and RNCM. Alerting PCP team to this note for continuity of care. Records r/t this episode of care sent to [facility] for scanning. Discharge Summary Records:SHARED SECURELY WITH PACT RN AND SENT TO [facility] FOR [facility]ANN[facility] Hospital/discharge Summary (per discharge note): 74 YEAR OLD MALE PRESENTS TO HOSPITAL FOR AMS. ON ASSESSMENT 10/09 A&O X0. NOT FOLLOWING COMMANDS, NOTED LEFT NYSTAGMUS. UTI --STARTED ON LEVAQUIN ON 10/07, TRANSITIONED TO [place] ON 10/08. TRANSITIONED TO IV LEVAQUIN 10/09, CHANGED TO PO. NEEDS 3 MORE DOSES LAST DAY 10/14 AT 9AM. WILL NEED NEUROLOGY F/U. HYPOKALEMIA -3.2 IN K ORDERED, OVER HALF WAY INFUSED. PT WANTS TO LEAVE TESS IN ORDER TO GET SHOWER AT FACILITY. WILLORDER PO REPLACEMEN WELL AND LAB TO BE REPETAED IN FEW DAYS TO ENSURE STABLE. Important Medication Changes: Start - LEVETIRACETAM 250MG-75O MG PO Q12HR LEVOFLOXACIN 750MG PO DAILY POTASSIUM CHLORIDE 20MEQ PO BID Stop -N/A Change-N/A *Medication reconciliation needed* Post-Discharge Needs PACT: F/U W/NEUROLOGY 1) [facility] PCP follow up N/A PACT Please place the below consults:N/A ([facility] or [place] internal consults needed for ALL follow up care) /james/ CHELSEA HANNA RN REGISTERED NURSE Signed: 10/15/2024 09:04 Receipt Acknowledged By: 10/16/2024 09:39 /james/ ISAI CANO REGISTERED NURSE 10/16/2024 13:21 /james/ GINI LAMAR RN, ANP-BC ADULT NURSE PRACTITIONER CHELSEA CAMPOS [facility]
--- OUTSIDE RECORDS SUMMARY | 2025-02-15 16:31 | XMS_ITS ---
Author Name [facility] [place] [facility] [place] Organization [facility] [place] Address [address] [place] [address] Care Team Providers Care Site Planner Name Role Phone October Primary Care Provider [...] AID (WNR) Feb 02, 2015 MEDICAI D [id number] ABIMAEL ASKEW PATIENT MEDICARE (WNR) MEDICARE (M) PART B Jan 03, 2016 PART B [id number] ABIMAEL ASKEW PATIENT MEDICARE (WNR) MEDICARE (M) PART B Jan 03, 2016 PART B [id number] [id number] ABIMAEL ASKEW PATIENT MEDICARE (WNR) MEDICARE (M) PART A May 05, 2014 PART A [id number] ABIMAEL ASKEW PATIENT MEDICARE (WNR) MEDICARE (M) PART A May 05, 2014 PART A [id number] ABIMAEL ASKEW PATIENT Selected Encounter This section includes the information on record at OR for the Encounter. Date/Time Encounter Type Encounter Description Reason Provider Source Dec 06, 2024 10:00 AM OFFICE O/P EST MOD 30 MIN SPINAL CORD INJURY ICD-10-CM G82.51 Quadriplegia, C1-C4 complete JEROMEBENITEZ KIMBROUGH [place] Encounter Template Text not used by [place] Assessments - Encounter Diagnoses This section includes the primary and secondary diagnoses documented for the Encounter. Date/Time Primary/Secondary Diagnosis Diagnosis Name Provider Source Dec 06, 2024 11:16 AM PRIMARY Quadriplegia, C1-C4 complete BENITEZ CORREIA [facility] Dec 06, 2024 11:16 AM SECONDARY Other muscle spasm BENITEZ CORREIA [facility] Plan of Treatment: Future Appointments (+ 6 months) and Future Tests (+/- 45 days) The Plan of Treatment section includes future care activities for the patient [facility] [place] [facility]. This section includes future appointments and future orders which are active, pending or scheduled. Future Appointments This section includes appointments that were scheduled to occur 6 months from the date of the Encounter, up to a maximum of 20 appointments. The data comes from all [place] treatment facilities. Appointment Date/Time Appointment Type Appointme nt Facility Name Jan 11, 2025 02:00 PM AMBUL[facility] Jan 17, 2025 11:00 AM AMBULATORY - MEDICINE [facility] Feb 07, 2025 11:30 AM AMBULATORY - REHAB MEDICIN E [facility] Feb 13, 2025 01:00 PM AMBULATORY - REHAB MEDICIN E [facility] Apr 10, 2025 01:00 PM AMBULATORY - REHAB MEDICIN E [facility] Apr 23, 2025 01:00 PM AMBULATORY - REHAB MEDICIN E [facility] Apr 25, 2025 11:30 AM AMBULATORY - REHAB MEDICIN [facility] Social History: Smoking Status (Most current) and Tobacco Use (All prior to encounter date) This section includes the most current, and the historical, smoking and tobacco- related health factors from the [place] facility where the Encounter took place. Current Smoking Status This section includes the most current smoking, or tobacco-related health factor, from the [place] facility where the Encounter took place. Date/Time Current Smoking Status Comment Chip ity Oct 12, 2024 10:00 AM VA-TOBACCO NEVER U SED CIGARETTES [facility] Tobacco Use History This section includes a history of the smoking, or tobacco-related health factors, that were collected on or before the date of the Encounter. The data comes from the [place] facility where the Encounter took place. Date/Time Smoking Status/Tobacco Use Comment F acility Oct 12, 2024 10:00 AM VA-TOBACCO NEVER U SED OTHER TYPE [facility] Sep 27, 2023 01:00 PM VA-TOBACCO NEVER USED [facility] Oct 15, 2022 08:00 AM VA-TOBACCO NEVER USED [facility] Oct 16, 2021 08:00 AM VA-TOBACCO FORMER USER [facility] Oct 16, 2021 08:00 AM VA-TOBACCO QUIT 15 YRS OR MORE [facility] Oct 10, 2020 08:00 AM VA-TOBACCO FORMER USER [facility] Oct 10, 2020 08:00 AM VA-TOBACCO QUIT 15 YRS OR MORE [facility] Oct 18, 2019 01:49 PM VA-TOBACCO FORMER USER [facility] Oct 18, 2019 01:49 PM VA-TOBACCO QUIT 15 YRS OR MORE [facility] Oct 18, 2019 01:49 PM VA-TOBACCO QUIT 5 TO < 15 YRS [facility] Oct 04, 2018 08:04 AM VA-TOBACCO FORMER USER [facility] Oct 04, 2018 08:04 AM VA-TOBACCO QUIT 15 YRS OR MORE [facility] Apr 06, 2011 03:10 PM QUIT TOBACCO >7 YEARS AGO [facility] Feb 02, 2011 03:20 PM LIFETIME NON-USER OF TOBACCO [facility] Aug 02, 2006 03:10 PM QUIT TOBACCO >7 YEARS AGO [facility] Apr 11, 2006 02:21 PM CURRENT NON-TOBACC O USER-HX OF USE [facility] Apr 11, 2006 02:21 PM TOBACCO TERMINATION STAGE [facility] Advance Directives: All historical and current Section Date Range: From patient's date of to the date document was created. This section includes ALL of a patient's completed or amended [place] Advance and Rescinded Directives. The entries below indicate that a directive exists for the patient, but an actual copy is not included with this document. The data comes from all [place] facilities. Date Advance Directives Provider Source Oct 12, 2024 ADVANCE DIRECTIVE RAHEEL MINER [facility] Oct 10, 2020 ADVANCE DIRECTIVE BARBY ALMAZAN Gwendolyn JIMENEZUI S [facility] Oct 10, 2020 RESCINDED ADVANCE DIRECTIVE BARBY ALMAZAN [facility] Oct 13, 2014 ADVANCE DIRECTIVE STEFANIE MENCHACA [facility] Apr 28, 2012 ADVANCE DIRECTIVE DISCUSSION DOMINGA CHILDS [facility] Apr 08, 2006 ADVANCE DIRECTIVE PACHECO TOBIAS Gwendolyn CARIDAD IS [facility] Encounter Notes: All associated encounter notes This section contains the clinical notes associated to the Encounter. Date/Time Encounter Note(s) Provider Source Dec 06, 2024 11:06 AM SPINAL CORD INJURY PROCEDURE NOTE: LOCAL TITLE: SCI INTRATHECAL BACLOFEN PUMP PROCEDURE [facility] STANDARD TITLE: SPINAL CORD INJURY PROCEDURE NOTE DATE OF NOTE: DEC 06, 2024@11:06 ENTRY DATE: DEC 06, 2024@11:07:09 AUTHOR: BENITEZ CORREIA COSIGNER: URGENCY: STATUS: COMPLETED Procedure: Intrathecal Baclofen Pump Refill Diagnosis: Tetraparesis Indication: spasticity Performed by: Benitez Correia wet machine tender: The intrathecal pump was interrogated and found to have 5.7 mL reservoir volume. The skin overlying the reservoir was cleansed with Iodine and draped in sterile fashion. The reservoir site was accessed with a 22G needle after 1 attempts. Approximately 7 cc of clear fluid was removed and discarded. The reservoir was refilled with 40 cc of Lioresal at 2,000 mcg/mL. The syringe plunger was pulled back to confirm clear fluid return x2 during the refill procedure. Lot#: [id number] Exp: 2026-05-24 The CURRENT dose programming is as follows: FLEX mode Dose pattern: Basal rate: 44.1 mcg/hr Step 1: Start Time Duration Dose Rate 19:00 3:00 h:m 149.9 mcg 50.0 mcg/hr Daily Dose: 1076.7 mcg/day Estimated MELIDA: FEB 2031 <75 months [place] volume: 40 mL Low [place] Alarm volume: 2.0mL Low reservoir alarm date: 02/14/2025 ASSESSMENT AND PLAN: The following plan of care was developed through shared decision making in discussion with the , and is agreeable to plan of care. #Spasticity -s/p intrathecal baclofen pump refill -New alarm date:02/14/2025 -Return to clinic order placed for 02/02/25 /james/ BENITEZ CORREIA REGISTERED NURSE Signed: 12/06/2024 11:16 BENITEZ CORREIA [facility]
--- OUTSIDE RECORDS SUMMARY | 2025-02-15 16:31 | XMS_ITS | Encounter Summary ---
Author Name [facility] [place] Address [address] [place] [address] Care Team Providers Care Nc Machinist Name Role Phone October Primary Care Provider [...] AID (WNR) Feb 02, 2015 MEDICAI D [id number] ABIMAEL ASKEW PATIENT MEDICARE (WNR) MEDICARE (M) PART B Jan 03, 2016 PART B [id number] [phone] ABIMAEL ASKEW PATIENT MEDICARE (WNR) MEDICARE (M) PART B Jan 03, 2016 PART B [id number] [phone] ABIMAEL ASKEW PATIENT MEDICARE (WNR) MEDICARE (M) PART A May 05, 2014 PART A [id number] ABIMAEL ASKEW PATIENT MEDICARE (WNR) MEDICARE (M) PART A May 05, 2014 PART A [id number] ABIMAEL ASKEW PATIENT Selected Encounter This section includes the information on record at [place] for the Encounter. Date/Time Encounter Type Encounter Description Reason Provider Source Feb 10, 2025 06:41 AM Outpatient Encounter GENERAL INTERNAL MEDICINE [facility] Encounter Template Text not used by [place] Plan of Treatment: Future Appointments (+ 6 months) and Future Tests (+/- 45 days) The Plan of Treatment section includes future care activities for the patient [facility] [place] [facility] This section includes future appointments and future orders which are active, pending or scheduled. Future Appointments This section includes appointments that were scheduled to occur 6 months from the date of the Encounter, up to a maximum of 20 appointments. The data comes from all [place] treatment facilities. Appointment Date/Time Appointment Type Appointme nt Facility Name Feb 13, 2025 01:00 PM AMBULATORY - REHAB MEDICIN E [facility] Apr 10, 2025 01:00 PM AMBULATORY - REHAB MEDICIN E [facility] Apr 23, 2025 01:00 PM AMBULATORY - [facility]HAB MEDICIN E [facility] Apr 25, 2025 11:30 AM AMBULATORY - [facility]AB MEDICIN [facility] Social History: Smoking Status (Most current) and Tobacco Use (All prior to encounter date) This section includes the most current, and the historical, smoking and tobacco- related health factors from the [place] facility where the Encounter took place. Current Smoking Status This section includes the most current smoking, or tobacco-related health factor, from the [place] facility where the Encounter took place. Date/Time Current Smoking Status Comment Chip pablo Oct 09, 2017 03:41 AM CURRENT TOBACCO USER [facility] Tobacco Use History This section includes a history of the smoking, or tobacco-related health factors, that were collected on or before the date of the Encounter. The data comes from the [place] facility where the Encounter took place. Date/Time Smoking Status/Tobacco Use Comment F miguel a Oct 08, 2017 09:04 PM ORYX ADMIT TOBACCO SCREEN NO [facility] May 31, 2016 06:37 PM LIFETIME NON-USER OF TOBACCO [facility] Aug 13, 2014 06:26 PM QUIT TOBACCO >7 YEARS AGO [facility] Jul 24, 2014 11:00 AM QUIT TOBACCO >7 YEARS AGO [facility] Jul 19, 2013 05:50 PM QUIT TOBACCO >7 YEARS AGO [facility] Apr 26, 2012 04:33 AM QUIT TOBACCO >7 YEARS AGO [facility] November 25, 2011 07:12 AM QUIT TOBACCO >7 YEARS AGO [facility] Jun 26, 2011 11:47 AM QUIT TOBACCO >7 YEARS AGO [facility] May 26, 2011 10:29 AM QUIT TOBACCO >7 YEARS AGO [facility] Feb 26, 2011 11:09 PM LIFETIME NON-USER OF TOBACCO [facility] Jan 24, 2011 03:35 AM LIFETIME NON-USER OF TOBACCO [facility] November 30, 2009 06:58 AM QUIT TOBACCO >7 YEARS AGO [facility] Jan 20, 2008 08:11 PM LIFETIME NON-USER OF TOBACCO [facility] Advance Directives: All historical and current Section Date Range: From patient's date of to the date document was created. This section includes ALL of a patient's completed or amended [place] Advance and Rescinded Directives. The entries below indicate that a directive exists for the patient, but an actual copy is not included with this document. The data comes from all [place] facilities. Date Advance Directives Provider Source Oct 12, 2024 ADVANCE DIRECTIVE RAHEEL MINER [facility] Oct 10, 2020 ADVANCE DIRECTIVE BARBY ALMAZAN Gwendolyn [facility] Oct 10, 2020 RESCINDED ADVANCE DIRECTIVE BARBY ALMAZAN [facility] Oct 13, 2014 ADVANCE DIRECTIVE STEFANIE MENCHACA [facility] Apr 28, 2012 ADVANCE DIRECTIVE DISCUSSION DOMINGA CHILDS [facility] Apr 08, 2006 ADVANCE DIRECTIVE PACHECO TOBIAS [facility] Encounter Notes: All associated encounter notes This section contains the clinical notes associated to the Encounter. Date/Time Encounter Note(s) Provider Source Feb 03, 2025 06:41 AM NONVA NOTE: LOCAL TITLE: [facility] SELF PRESENTING CARE COORD PLAN STANDARD TITLE: NONVA NOTE DATE OF NOTE: FEB 03, 2025@06:41 ENTRY DATE: FEB 10, 2025@06:41:14 AUTHOR: FELICITAS BAJWA COSIGNER: URGENCY: STATUS: COMPLETED Emergency Notification Intake Date Presenting to the Facility: Feb Method of Contact: Notified from ECR worklist Notification ID: [id number] HSRM Referral #: [id number] Clinical Review [facility] [place] [facility] Address: [address] City: [place] State: [place] Zip Code: [address] Community Facility Point of Contact: Name: Marnie Gabriel Chief complaint: urinary catheter issues Primary Diagnosis: Disposition Discharged Date of discharge: Feb Discharge to home [facility] /james/ FELICITAS BAJWA [facility] [employer] MECHANIC Signed: 02/10/2025 06:43 Receipt Acknowledged By: 02/13/2025 11:39 /es/ ISAI CANO REGISTERED NURSE 02/12/2025 07:48 /es/ GINI LAMAR RN, ANP- ADULT NURSE PRACTITIONER FELICITAS BAJWA [facility]
--- OUTSIDE RECORDS SUMMARY | 2025-02-15 16:31 | XMS_ITS | Encounter Summary ---
Author Name [facility] [place] Address [address] [place] [address] Care Team Providers Care Marzipan Molder Name Role Phone October Primary Care Provider [...] AID (WNR) Feb 02, 2015 MEDICAI D [id number] ABIMAEL ASKEW PATIENT MEDICARE (WNR) MEDICARE (M) PART B Jan 03, 2016 PART B [id number] [phone] ABIMAEL ASKEW PATIENT MEDICARE (WNR) MEDICARE (M) PART B Jan 03, 2016 PART B [id number] ABIMAEL ASKEW PATIENT MEDICARE (WNR) MEDICARE (M) PART A May 05, 2014 PART A [id number] [phone] ABIMAEL ASKEW PATIENT MEDICARE (WNR) MEDICARE (M) PART A May 05, 2014 PART A [id number] ABIMAEL ASKEW PATIENT Selected Encounter This section includes the information [place] for the Encounter. Date/Time Encounter Type Encounter Description Reason Provider Source Aug 02, 2024 11:00 AM OFFICE O/P EST HI 40 MIN SPINAL CORD INJURY ICD-10-CM G82.51 Quadriplegia, C1-C4 complete JEROMEBENITEZ KIMBROUGH [place] Encounter Template Text not used by [place] Assessments - Encounter Diagnoses This section includes the primary and secondary diagnoses documented for the Encounter. Date/Time Primary/Secondary Diagnosis Diagnosis Name Provider Source Aug 02, 2024 03:13 PM PRIMARY Quadriplegia, C1-C4 complete BENITEZ CORREIA [facility] Aug 02, 2024 03:13 PM SECONDARY Other muscle spasm BENITEZ CORREIA [facility] Plan of Treatment: Future Appointments (+ 6 months) and Future Tests (+/- 45 days) The Plan of Treatment section includes future care activities for the [facility] [place] [facility]. This section includes future appointments and future orders which are active, pending or scheduled. Future Appointments This section includes appointments that were scheduled to occur 6 months from the date of the Encounter, up to a maximum of 20 appointments. The data comes from all [place] treatment facilities. Appointment Date/Time Appointment Type Appointme nt Facility Name Aug 23, 2024 02:30 PM AMBULATORY - REHAB MEDICIN E [facility] Aug 30, 2024 01:00 PM AMBULATORY - MEDICINE [facility] Oct 03, 2024 01:00 PM AMBULATORY - REHAB MEDICIN E [facility] Oct 12, 2024 08:00 AM AMBULATORY - REHAB MEDICIN E [facility] Oct 12, 2024 08:30 AM AMBULATORY - NONE [facility] Oct 12, 2024 09:00 AM AMBULATORY - REHAB MEDICIN E [facility] Oct 12, 2024 10:00 AM AMBULATORY - REHAB MEDICIN E [facility] Oct 12, 2024 10:30 AM [facility] Oct 12, 2024 11:00 AM AMBULATORY - REHAB MEDICIN E [facility] Oct 12, 2024 11:30 AM AMBULATORY - REHAB MEDICIN E [facility] Oct 12, 2024 12:00 PM AMBULATORY - REHAB MEDICIN E [facility] Oct 12, 2024 12:30 PM AMBULATORY - REHAB MEDICIN E [facility] Oct 12, 2024 01:30 PM AMBULATORY - REHAB MEDICIN E [facility] Oct 19, 2024 02:00 PM AMBULATORY - REHAB MEDICIN E [facility] Nov 01, 2024 10:30 AM AMBULATORY - NONE . [facility] Nov 01, 2024 11:00 AM AMBULATORY - SURGERY [facility] November 29, 2024 11:30 AM AMBULATORY - REHAB MEDICIN E [facility] Dec 06, 2024 10:00 AM AMBULATORY - REHAB MEDICIN E [facility] Jan 11, 2025 02:00 PM AMBULATORY - REHAB MEDICIN E [facility] Jan 17, 2025 11:00 AM AMBULATORY - MEDICINE [facility] Social History: Smoking Status (Most current) and Tobacco Use (All prior to encounter date) This section includes the most current, and the historical, smoking and tobacco- related health factors from the [place] facility where the Encounter took place. Current Smoking Status This section includes the most current smoking, or tobacco-related health factor, from the [place] facility where the Encounter took place. Date/Time Current Smoking Status Comment Chip pablo Sep 27, 2023 01:00 PM [place]-TOBACCO NEVER USED [facility] Tobacco Use History This section includes a history of the smoking, or tobacco-related health factors, that were collected on or before the date of the Encounter. The data comes from the [place] facility where the Encounter took place. Date/Time Smoking Status/Tobacco Use Comment F acility Oct 15, 2022 08:00 AM [place]-TOBACCO NEVER USED [facility] Oct 16, 2021 08:00 AM [place]-TOBACCO FORMER USER [facility] Oct 16, 2021 08:00 AM VA-TOBACCO QUIT 15 YRS OR MORE [facility] Oct 10, 2020 08:00 AM VA-TOBACCO FORMER USER [facility] Oct 10, 2020 08:00 AM VA-TOBACCO QUIT 15 YRS OR MORE [facility] Oct 18, 2019 01:49 PM VA-TOBACCO FORMER USER [facility] Oct 18, 2019 01:49 PM VA-TOBACCO QUIT 15 YRS OR MORE [facility] Oct 18, 2019 01:49 PM VA-TOBACCO QUIT 5 TO < 15 YRS [facility] Oct 04, 2018 08:04 AM VA-TOBACCO FORMER USER [facility] Oct 04, 2018 08:04 AM VA-TOBACCO QUIT 15 YRS OR MORE [facility] Apr 06, 2011 03:10 PM QUIT TOBACCO >7 YEARS AGO [facility] Feb 02, 2011 03:20 PM LIFETIME NON-USER OF TOBACCO [facility] Aug 02, 2006 03:10 PM QUIT TOBACCO >7 YEARS AGO [facility] Apr 11, 2006 02:21 PM CURRENT NON-TOBACC O USER-HX OF USE [facility] Apr 11, 2006 02:21 PM TOBACCO TERMINATION STAGE [facility] Advance Directives: All historical and current Section Date Range: From patient's date of to the date document was created. This section includes ALL of a patient's completed or amended [place] Advance and Rescinded Directives. The entries below indicate that a directive exists for the patient, but an actual copy is not included with this document. The data comes from all [place] facilities. Date Advance Directives Provider Source Oct 12, 2024 ADVANCE DIRECTIVE RAHEEL MINER [facility] Oct 10, 2020 ADVANCE DIRECTIVE BARBY ALMAZAN [facility] Oct 10, 2020 RESCINDED ADVANCE DIRECTIVE BARBY ALMAZAN [facility] Oct 13, 2014 ADVANCE DIRECTIVE STEFANIE MENCHACA [facility] Apr 28, 2012 ADVANCE DIRECTIVE DISCUSSION DOMINGA CHILDS [facility] Apr 08, 2006 ADVANCE DIRECTIVE PACHECO TOBIAS IS [facility] Encounter Notes: All associated encounter notes This section contains the clinical notes associated to the Encounter. Date/Time Encounter Note(s) Provider Source Aug 02, 2024 02:07 PM SPINAL CORD INJURY NURSING NOTE: LOCAL TITLE: [facility] NURSING NOTE [facility] STANDARD TITLE: SPINAL CORD INJURY NURSING NOTE DATE OF NOTE: AUG 02, 2024@14:07 ENTRY DATE: AUG 02, 2024@14:07:52 AUTHOR: BENITEZ CORREIA COSIGNER: URGENCY: STATUS: COMPLETED Patient had recent surgery to replace his Intrathecal Baclofen Pump due to low battery life on on 06/04/24. Patient visiting the [facility] outpatient clinic today for Baclofen pump refill. Procedure: Intrathecal Baclofen Pump Refill Diagnosis: Tetraparesis Indication: spasticity Performed by: Benitez Correia night supervisor: The intrathecal pump was interrogated and found to have 7.8 mL reservoir volume. The skin overlying the reservoir was cleansed with Iodine and draped in sterile fashion. The reservoir site was accessed with a 22G needle after 1 attempts. Approximately 8 cc of clear fluid was removed and discarded. The reservoir was refilled with 40 cc of Lioresal at 2,000 mcg/mL. The syringe plunger was pulled back to confirm clear fluid return x2 during the refill procedure. Lot#: [id number] Exp: 2025-12-14 The CURRENT dose programming is as follows: FLEX mode Dose pattern: Basal rate: 44.1 mcg/hr Step 1: Start Time Duration Dose Rate 19:00 3:00 h:m 150.1 mcg 50.0 mcg/hr Daily Dose: 1076.6 mcg/day Estimated MELIDA: Feb 2031 <80 months [place] volume: 40 mL Low [place] Alarm volume: 2.0mL Low reservoir alarm date: 10/11/2024 ASSESSMENT AND PLAN: The following plan of care was developed through shared decision making in discussion with the , and is agreeable to plan of care. #Spasticity -s/p intrathecal baclofen pump refill -New alarm date:10/11/2024 -Return to clinic for 10/04/24 /james/ BENITEZ CORREIA REGISTERED NURSE Signed: 08/02/2024 15:13 BENITEZ CORREIA [facility]
--- OUTSIDE RECORDS SUMMARY | 2025-02-15 16:31 | XMS_ITS | Encounter Summary ---
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 11:32 AST17 U/L (10/14/23 11:32) ALT13 U/L (10/14/23 11:32) Cholesterol: CHOLESTEROL 98 mg/dL 10/14/2023 11:32 HDL: 34 mg/dL L (10/14/23 11:32) LDL: ____ Trigs: 48 mg/dL (10/14/23 11:32) HBA1C: HGA1C 6.0 % 10/14/2023 11:32 MICRAL: No MICRAL data found VITAMIN D : VITAMIN D, 25-HYDROXY 37.6 ng/mL 10/14/2023 11:32 TSH : TSH 2.069 uIU/mL 10/14/2023 11:32 No METHADONE PANEL EO data found Chest X-ray: Impression for CHEST X-RAY, 2 VIEWS, 06/30/19, case [id number] Clinically described catheter is not visualized. Possible small pleural effusion. Question of aseptic necrosis versus osteoarthritis of the left humeral head; standard shoulder radiographs may be helpful in evaluation. VIRGILIO: 08/23/2012 Triphasic waveforms are seen bilaterally. VIRGILIO bilaterally is greater than one. Toe pressure on the right is 80 and toe pressure on the left is 160 impression should read no hemodynamically significant arterial insufficiency of either lower extremity at rest. Screening Renal/Abd US: Impression for US RENAL COMPLETE, 10/14/23, case [id number] Normal renal sonogram with right kidney larger than left. Cholelithiasis but no gallbladder wall thickening. Empty bladder. Suprapubic catheter. -Past Medical History- 1) Meningitis * (ICD-9-CM 322.9) 2) Recurrent major depressive episodes, mild (SNOMED CT 570355439) 3) Male erectile disorder 4) RT SUPRASPINATUS TEAR 5) T7 COMPRESSION FX 6) s/p ivc filter 7) Neurogenic bladder (SNOMED CT 728437558) 8) Neurogenic bowel (SNOMED CT 257902794) 9) Baclofen pump placement 10) Spasticity (SNOMED CT 640029433) 11) Quadriplegia (SNOMED CT 22162247) comment: C3 KEREN D 12) History of recurrent urinary tract infection (SNOMED CT 218353969) 13) Hyperlipidemia (SNOMED CT 50864589) 14) Melanoma of Skin (ICD-9-CM 172.9) 15) Personal History of Venous Thrombosis and Embolism (ICD-9-CM V12.51) comment: left leg 16) Personal History of Traumatic Brain Injury comment: subarachnoid hemmorrhage in 2003 17) Paresthesia * (ICD-9-CM 782.0) 18) Sprains and strains of sacroiliac region (ICD-9-CM 846.9) 19) Seborrheic Keratosis 20) Chronic pain (SNOMED CT 24242674) 21) Myofascial pain (SNOMED CT 406520052) 22) Ingrowing nail with infection (SNOMED CT 95827029) 23) Debility 24) Neuropathic pain 25) Intrathecal infusion pump present 26) Benign essential hypertension 27) Iron deficiency 28) Folic acid deficiency 29) Hemorrhoids 30) Allergic Rhinitis (SCT 33542666) 31) GERD - Gastro-Esophageal Reflux Disease (SCT 613737598) 32) Severe protein-calorie malnutrition (Calixto: less than 60 percent of standard weight) -Surgical History- baclofen pump replaced at on 09/03/17 06/01/2016 External Hemorrhoidectomy 08/14/2014 Insrt/Redo Spine N Generator 07/24/2014 Insrt/Redo Spine N Generator (CPT 61400) 09/2023 SCS battery change hemmorhoidectomy and band ligation -Social History- 2 children residential [employer] Worked [employer] 30 years, retired CIGARETTE SMOKING: []SMOKER, []NONSMOKER, [x]EX-SMOKER; quit in 1970s[]CHEW, []PIPE If smoker then, Packs per day: Number of years:8 Smoking cessation counselling done. Pt []IS []IS NOT interested in quitting at this time. ALCOHOL: [x]NONE, []OCCASIONAL, []FREQUENT TYPE/QTY: OTHER DRUGS: [x]NONE, [] Yes - TYPE/QTY: -Family History- Father : age 82, unknown health issues Mother : age 80 from cancer Sister : 2, one from cancer, other living, CVA. children : 2, healthy Grandchildren - 2 Preventative Care: IM - IMMUNIZATIONS COVID-19 (Pfizer), Dose 2 Due Now, Dose 1 03/31/24 Influenza, 03/31/24 RSV 10/14/23 Pneumococcal Conjugate, PCV20 10/14/23 COVID-19 (Moderna), 05/03/23 COVID-19 (Pfizer), Bivalent Booster 04/28/22 COVID-19 (PFIZER), Monovalent Booster 12/24/21 COVID-19 (PFIZER), Primary Series 07/06/20, 07/27/20 PNEUMOCOCCAL CONJ, PCV 13 10/24/15 PNEUMOCOCCAL POLYS PPV23 05/12/17 TDAP 10/16/21 ZOSTER RECOMBINANT 10/10/20, 12/11/20 OCCULT BLOOD (FIT) #1 OF 1 Negative 03/23/2023 Review of Systems: [X] = POS., [] = NEG Gen: []HLITON, []weight loss/gain, []fatigue, []anorexia, []fever, []chills, []night sweats, []sleep disturb. []dizziness ENT: []visual disturb., []hearing loss, []sinus prob., []sore throat Skin: []rash, []nonhealing lesions, []moles, []wounds Resp: []SOB, [x]cough, []hemoptysis CVS: []CP, []palpitations, []ARMSTRONG, []orthopnea, []PND GI: []Dysphagia, []heartburn, []abdominal pain, []N/V, []diarrhea []constipation, []melena, []hematochezia, []hematemesis : []Dysuria, []frequency, []urgency, []hematuria, []urine. Incontinence/leaking []nocturia MSK: [x]back pain, []neck pain, []decrease in strength []falls, [x]spasticity, []joint swelling, [x]joint pain right shooulder NEURO []syncope, []dizziness, []changes in sensation VASC: []edema, []leg cramps Psych: []anxious, []depressed, []SI/HI Physical Examination: VITAL SIGNS: -BLOOD PRESSURE: 121/63 -PULSE RATE: 76 -RESPIRATORY RATE:18 -TEMPERATURE: 98.3 -WEIGHT:173 lbs -O2 SAT:94% -PAIN:7 -GEN: NAD, A&Ox4, well groomed, sitting in chair comfortably. -EYES: EOMI. Anicteric. -HENT: Moist mucous membranes, No scleral icterus. No cervical lymphadenopathy or thyromegaly -LUNGS: Clear to auscultation bilaterally. No accessory muscle use. -CARDIOVASCULAR: Regular rate and rhythm. No murmur or gallops. No JVD. -ABDOMEN: BS + x4, soft, non-tender and non-distended. No palpable masses. -EXT: bialtera lower leg 2+ edema, nontender, pedal pulses 2+ b/l. -SKIN: intact over ischium, sacrum, trochanters, scapulae and heels. -NEUROLOGIC: CN II-XII grossly intact, but not individually tested. -PSYCHIATRIC: Cooperative. Appropriate mood and affect. Assessment and Plan of Care: #Tetraplegia -Stable, Encouraged to continue with activity as tolerated -Interdisciplinary evaluation by nursing, PT/OT/Psychology/Teacher Aide Clerical/S ocial Work; see separate evaluation documentation by each discipline -Continue physical activity as tolerated for maintenance of strength, endurance, and function. -Educated on availability of [facility] Wellness course offerings, is not interested at this time. -SCI Annual Evaluation in 1 year. -Medically cleared for recreational therapy: [ x ] - yes w/o restrictions [ ] - yew w/ restrictions: [ ] - no: #Spasticity - discussed with aboout intrathecal baclfoen dose. SCI MD to address with [place]. #Chronic pain - needs improvement - DC Ibuprofen, Lidocaine patches. May take tylenol PRN. Will order Voltaren gel. #HLD - Stable, continue with statin, lipid panel today - Continue to focus on heart healthy diet #HTN - Recommend clarifying hydralizne dose change to scheduled. - reviewed importance of taking medications as prescribed and monitoring BPs regularly - reviewed importance of heart healthy diet and weight management - Would recommend BP goal of <130/80 per ACC/AHA guidelines #severe basal septal hypertrophy - continue metoprol. reviewed records in [facility]: [facility] 04/25/2023 #Seziure disorder - needs to follow up with neurology. [place] states he will do this on [facility] own [facility] of [facility]. Continue keppra. Educated on no driving. [place] states he sold his van. #Hx of CVA - stable, on statin. resume asa 81 mg daily. #Hx of PUD with GI bleed - continue protonix #Iron deficiency - on supplement. Check labs #Edema - encouraged elevation and compression. Follow up:6 months The above plan of care was developed using evidenced base guidelines and using shared decision making with the . [place] agrees with above plan of care and will follow as scheduled and prn. On the date of the encounter, I spent : - [ ] 20-29 minutes - [ ] 30-39 minutes - [ ] 40-54 minutes - [ x ] Other: 90 minutes on some or all of the following: chart review, history, physical examination, treatment planning, education and counseling of the patient/family/critical care physician assistant, placing orders, communicating with other health care providers, and documentation in the electronic health record. Future Appointment + Recall: 10/19/24 2:00 pm [facility] [phone] 11/08/24 1:00 pm [facility] 11/29/24 11:30 am [facility] NUTRITION 01/17/25 11:00 am [facility] [phone] 08/30/25 1:15 pm [facility] [phone] Clinical reminders:All the reminders! 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 Handwritten corrections, additions and/or deletions were made to the list, as appropriate. Corrected Outpatient Medication List was provided to the patient/caregiver. Avg Risk Colorectal Cancer Screen - L,N,P,PH: AVERAGE RISK colorectal cancer screening is due based on information available to this clinical reminder FOBT/FIT (Fecal Immunochemical Testing) has been ordered. See order tab for details. 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 The /caregiver was informed that we will continue to ask this screening question every 5 years. They can contact their provider/healthcare team if they have concerns about exposures and would like to be screened sooner. Printed information was offered and provided if desired. Screen for Abd Aortic Aneurysm - P,PH: Order Ultrasound /es/ GINI LAMAR RN, ANP-BC ADULT NURSE PRACTITIONER Signed: 10/13/2024 09:38 GINI LAMAR [facility]
--- OUTSIDE RECORDS SUMMARY | 2025-02-15 16:32 | XMS_ITS ---
Author Name [facility] [place] [facility] [place] Address [address] [place] [id number] Care Team Providers Care Supervisor [employer] Name Role Phone October Primary Care Provider [...] AID (WNR) Feb 02, 2015 MEDICAI D [id number] ABIMAEL ASKEW PATIENT MEDICARE (WNR) MEDICARE (M) PART B Jan 03, 2016 PART B [id number] [phone] ABIMAEL ASKEW PATIENT MEDICARE (WNR) MEDICARE (M) PART B Jan 03, 2016 PART B [id number] [phone] ABIMAEL ASKEW PATIENT MEDICARE (WNR) MEDICARE (M) PART A May 05, 2014 PART A [id number] [phone] ABIMAEL ASKEW PATIENT MEDICARE (WNR) MEDICARE (M) PART A May 05, 2014 PART A [id number] ABIMAEL ASKEW PATIENT Selected Encounter This section includes the information on record at [place] for the Encounter. Date/Time Encounter Type Encounter Description Reason Provider Source Mar 27, 2024 01:38 PM QNHP OL DIG ASSMT&MGMT 5-10 CLINICAL PHARMACY ICD-10-CM M62.838 Other muscle spasm GREGORY GONZALEZ [place] Encounter Template Text not used by [place] Assessments - Encounter Diagnoses This section includes the primary and secondary diagnoses documented for the Encounter. Date/Time Primary/Secondary Diagnosis Diagnosis Name Provider Source Mar 27, 2024 01:49 PM PRIMARY Other muscle spasm GREGORY GONZALEZ [facility] Plan of Treatment: Future Appointments (+ 6 months) and Future Tests (+/- 45 days) The Plan of Treatment section includes future care activities for the patient from all [place] treatmentfacilities. This section includes future appointments and future orders which are active, pending or scheduled. Future Appointments This section includes appointments that were scheduled to occur 6 months from the date of the Encounter, up to a maximum of 20 appointments. The data comes from all [place] treatment facilities. Appointment Date/Time Appointment Type Appointme nt Facility Name Mar 31, 2024 10:30 AM [facility] - [facility] May 17, 2024 01:30 PM [facility] May 31, 2024 09:00 AM [facility]ORY - SUR[facility]ERY [facility] May 31, 2024 02:00 PM [facility] Jul 07, 2024 09:00 AM [facility]ORY - MEDICINE [facility] Aug 02, 2024 11:00 AM [facility] Aug 23, 2024 02:30 PM [facility] Aug 30, 2024 01:00 PM [facility]ORY - MEDICINE [facility] Social History: Smoking Status (Most current) and Tobacco Use (All prior to encounter date) This section includes the most current, and the historical, smoking and tobacco- related health factors from the [place] facility where the Encounter took place. Current Smoking Status This section includes the most current smoking, or tobacco-related health factor, from the [place] facility where the Encounter took place. Date/Time Current Smoking Status Comment Chip pablo Sep 27, 2023 01:00 PM VA-TOBACCO NEVER USED [facility] Tobacco Use History This section includes a history of the smoking, or tobacco-related health factors, that were collected on or before the date of the Encounter. The data comes from the [place] facility where the Encounter took place. Date/Time Smoking Status/Tobacco Use Comment Moris [facility] Oct 15, 2022 08:00 AM VA-TOBACCO NEVER USED [facility] Oct 16, 2021 08:00 AM VA-TOBACCO FORMER USER [facility] Oct 16, 2021 08:00 AM VA-TOBACCO QUIT 15 YRS OR MORE [facility] Oct 10, 2020 08:00 AM VA-TOBACCO FORMER USER [facility] Oct 10, 2020 08:00 AM VA-TOBACCO QUIT 15 YRS OR MORE [facility] Oct 18, 2019 01:49 PM VA-TOBACCO FORMER USER [facility] Oct 18, 2019 01:49 PM VA-TOBACCO QUIT 15 YRS OR MORE [facility] Oct 18, 2019 01:49 PM VA-TOBACCO QUIT 5 TO < 15 YRS [facility] Oct 04, 2018 08:04 AM VA-TOBACCO FORMER USER [facility] Oct 04, 2018 08:04 AM VA-TOBACCO QUIT 15 YRS OR MORE [facility] Apr 06, 2011 03:10 PM QUIT TOBACCO >7 YEARS AGO [facility] Feb 02, 2011 03:20 PM LIFETIME NON-USER OF TOBACCO [facility] Aug 02, 2006 03:10 PM QUIT TOBACCO >7 YEARS AGO [facility] Apr 11, 2006 02:21 PM CURRENT NON-TOBACC O USER-HX OF USE [facility] Apr 11, 2006 02:21 PM TOBACCO TERMINATION STAGE [facility] Advance Directives: All historical and current Section Date Range: From patient's date of to the date document was created. This section includes ALL of a patient's completed or amended [place] Advance and Rescinded Directives. The entries below indicate that a directive exists for the patient, but an actual copy is not included with this document. The data comes from all [place] facilities. Date Advance Directives Provider Source Oct 12, 2024 ADVANCE DIRECTIVE RAHEEL MINER [facility] Oct 10, 2020 ADVANCE DIRECTIVE BARBY ALMAZAN [facility] Oct 10, 2020 RESCINDED ADVANCE DIRECTIVE BARBY ALMAZAN [facility] Oct 13, 2014 ADVANCE DIRECTIVE STEFANIE MENCHACA [facility] Apr 28, 2012 ADVANCE DIRECTIVE DISCUSSION DOMINGA CHILDS [facility] Apr 08, 2006 ADVANCE DIRECTIVE PACHECO TOBIAS [facility] Encounter Notes: All associated encounter notes This section contains the clinical notes associated to the Encounter. Date/Time Encounter Note(s) Provider Source Mar 27, 2024 01:38 PM PHARMACY CONSULT: LOCAL TITLE: PHARMACY PRIOR APPROVAL CONSULT [facility] STANDARD TITLE: PHARMACY CONSULT DATE OF NOTE: MAR 27, 2024@13:38 ENTRY DATE: MAR 27, 2024@13:39:06 AUTHOR: GREGORY GONZALEZ COSIGNER: URGENCY: STATUS: COMPLETED The medical record has been reviewed with regard to this prior authorization drug request. Medication requested: BACLOFEN 2MG/ML PF INTRATHECAL AMP 40ML Medication indication: Other Muscle Spasm Si ml Quantity: 1 Refills: 6 --> changed to 5 Medical history relevant to this request: 74 year old with hx of incomplete tetraplegia being treated for spasticity with intrathecal baclofen. [place]'s spasticity is stable and baclofen pump was last filled on 01/28/24. is presenting to [facility] clinic on 03/28 for pump interrogation and refill. Will approve PADR x 1 year for continuation of care as [place] benefiting from therapy. The CURRENT dose programming is as follows: FLEX mode Dose pattern: Basal rate: 44.1 mcg/hr Step 1: Start Time Duration Dose Rate 19:00 3:00 h:m 150.1 mcg 50.0 mcg/hr Daily Dose: 1076.6 mcg/day Estimated MELIDA: < 5 months [place] volume: 40 mL Low [place] Alarm volume: 2.0mL Low reservoir alarm date: 04/07/2024 The request is approved - No formulary-preferred alternative Rx#: [id number] Orderable Item: BACLOFEN INTRATHECAL INJ <DIN> Drug: BACLOFEN 2MG/ML PF INTRATHECAL AMP 40ML Patient Status: PENSION NSC (1) Issue Date: Mar (2) Fill Date: Mar Verb: INJECT Dosage: 80 MG/40 ML Route: INTRATHECAL Schedule: EVERY 2 MONTHS Pat Instruction: FOR INTRATHECAL PUMP (ADMINISTER IN CLINIC) Indications: SIG: INJECT 80 MG/40 ML INTRATHECALLY EVERY 2 MONTHS FOR INTRATHECAL PUMP (ADMINISTER IN CLINIC) TIME REVIEWING CHART:10. (minutes) /james/ Gregory Gonzalez PharmD, BCACP SCI CLINICAL PHARMACIST Signed: 03/27/2024 13:55 GREGORY GONZALEZ [facility]
--- OUTSIDE RECORDS SUMMARY | 2025-02-15 16:32 | XMS_ITS | Encounter Summary ---
Author Name [facility] [place] Organization [facility] [place] Address [address] [place] [address] Care Team Providers Care Data Analyst Etl Developer Name Role Phone October Primary Care Provider [...] AID (WNR) Feb 02, 2015 MEDICAI D [id number] ABIMAEL ASKEW PATIENT MEDICARE (WNR) MEDICARE (M) PART B Jan 03, 2016 PART B [id number] [phone] ABIMAEL ASKEW PATIENT MEDICARE (WNR) MEDICARE (M) PART B Jan 03, 2016 PART B [id number] ABIMAEL ASKEW PATIENT MEDICARE (WNR) MEDICARE (M) PART A May 05, 2014 PART A [id number] ABIMAEL ASKEW PATIENT MEDICARE (WNR) MEDICARE (M) PART A May 05, 2014 PART A [id number] ABIMAEL ASKEW PATIENT Selected Encounter This section includes the information on record at [place] for the Encounter. Date/Time Encounter Type Encounter Description Reason Provider Source Aug 30, 2024 01:00 PM OFFICE O/P EST LOW 20 MIN DERMATOLOGY ICD-10-CM Z85.828 Personal history of other malignant neoplasm of skin TESSIE STONE IHBelen Encounter Template Text not used by [place] Assessments - Encounter Diagnoses This section includes the primary and secondary diagnoses documented for the Encounter. Date/Time Primary/Secondary Diagnosis Diagnosis Name Provider Source Aug 30, 2024 01:12 PM PRIMARY Personal history of other malignant neoplasm of skin DASILVA,ADI Samaniego [facility] Aug 30, 2024 01:12 PM SECONDARY Actinic keratosis DASILVAADI Samaniego [facility] Aug 30, 2024 01:12 PM SECONDARY Other seborrheic keratosis DASILVA,[facility] Plan of Treatment: Future Appointments (+ 6 months) and Future Tests (+/- 45 days) The Plan of Treatment section includes future care activities for the patient from all [place] treatmentfacilities. This section includes future appointments and future orders which are active, pending or scheduled. Future Appointments This section includes appointments that were scheduled to occur 6 months from the date of the Encounter, up to a maximum of 20 appointments. The data comes from all [place] treatment facilities. Appointment Date/Time Appointment Type Appointme nt Facility Name Oct 03, 2024 01:00 PM AMBULATORY - RE[facility]AB MEDIC[facility] Oct 12, 2024 08:00 AM AMBULATORY - [facility] Oct 12, 2024 08:30 AM AMBULATORY - NONE [facility] Oct 12, 2024 09:00 AM AMBULATORY - REHAB MEDICIN [facility] Oct 12, 2024 10:00 AM AMBULATORY - [facility]AB [facility] Oct 12, 2024 10:30 AM AMBULATORY - [facility]AB [facility] Oct 12, 2024 11:00 AM AMBULATORY - [facility]AB [facility] Oct 12, 2024 11:30 AM AMBULATORY - RE[facility]AB [facility] Oct 12, 2024 12:00 PM AMBULATORY - REHAB [facility]IC[facility] Oct 12, 2024 12:30 PM AMBULATORY - RE[facility]AB [facility] Oct 12, 2024 01:30 PM AMBULATORY - [facility]AB [facility] Oct 19, 2024 02:00 PM AMBULATORY - [facility] Nov 01, 2024 10:30 AM [facility]ONE [facility] Nov 01, 2024 11:00 AM AMBULATORY - SURGERY [facility] November 29, 2024 11:30 AM AMBULATORY - [facility] Dec 06, 2024 10:00 AM AMBULATORY - REHAB MEDICIN E [facility] Jan 11, 2025 02:00 PM AMBULATORY - REHAB MEDICIN E [facility] Jan 17, 2025 11:00 AM AMBULATORY - MEDICINE [facility] Feb 07, 2025 11:30 AM AMBULATORY - REHAB MEDICIN E [facility] Feb 13, 2025 01:00 PM AMBULATORY - REHAB MEDICIN E [facility] Active, Pending, and Scheduled Orders This section includes a listing of several types of active, pending, and scheduled orders, including clinic medications orders, diagnostic test orders, procedure orders and consult orders; where the start date of the order is 45 days before the date of the Encounter or 45 days after the date of theEncounter. The data comes from all [place] treatment facilities. Test Date/Time Test Type Test Details Facility Name Oct 12, 2024 12:00 AM Laboratory - Chemi stry Order OCCULT BLOOD FIT X1 SCREEN STOOL FECES SP [facility] Advance Directives: All historical and current Section Date Range: From patient's date of to the date document was created. This section includes ALL of a patient's completed or amended [place] Advance and Rescinded Directives. The entries below indicate that a directive exists for the patient, but an actual copy is not included with this document. The data comes from all [place] facilities. Date Advance Directives Provider Source Oct 12, 2024 ADVANCE DIRECTIVE RAHEEL MINER [facility] Oct 10, 2020 ADVANCE DIRECTIVE BARBY ALAMZAN [facility] Oct 10, 2020 RESCINDED ADVANCE DIRECTIVE BARBY ALMAZAN [facility] Oct 13, 2014 ADVANCE DIRECTIVE STEFANIE MENCHACA [facility] Apr 28, 2012 ADVANCE DIRECTIVE DISCUSSION DOMINGA CHILDS [facility] Apr 08, 2006 ADVANCE DIRECTIVE MARY BETHJENNIFERPACHECO Samaniego [facility] Encounter Notes: All associated encounter notes This section contains the clinical notes associated to the Encounter. 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 Concerns today: - scaly spots on the ears and L cheek. Sometimes nicks it shaving. Otherwise patient has not noticed any non-healing sores, new/changing moles, or rashes. Other History: Medications and allergies reviewed in chart Past medical, family, and social history reviewed and noncontributory unless noted in HPI. ROS: Constitutional: Negative for fever/chills and malaise/fatigue. Skin: Negative for non-healing sores, and new/changing moles unless noted in HPI. Other ROS per HPI. PHYSICAL EXAM: (patient declined gown, examined areas offered by patient) GENERAL: Well-developed and well-nourished. No acute distress. NEURO: Alert and oriented x3. PSYCH: Appropriate affect. The patient's face, ears, scalp/hair, eyes/eyelids, lips, were examined and normal, unless specified below: - pink scaly papules on b/l helices, L cheek - Scattered navarro waxy stuck-on appearing papules on face - Declined FBSE ASSESSMENT AND PLAN: #Actinic keratoses - Reviewed diagnosis, risk factors (sun exposure), premalignant nature, and treatment - LN2 to 4 lesions x5-7s x1 - Blister care reviewed #Seborrheic keratoses - Benign, reassurance provided - No treatment indicated #History of non-melanoma skin cancer - as per HPI - Reviewed sun protection strategies and skin cancer warning signs - Continue regular self-skin exams and dermatology follow-up RTC 1 year or PRN /james/ Adi Dasilva MD Dermatology Resident Signed: 08/30/2024 13:12 /james/ TESSIE STONE MD Dermatology Attending Physician Cosigned: 08/30/2024 13:22 08/30/2024 ADDENDUM STATUS: COMPLETED Reviewed documented history and physical examination and agree with assessment and plan. I was immediately available during entire visit and procedures. /james/ TESSIE STONE MD Dermatology Attending Physician Signed: 08/30/2024 13:22 ADI DASILVA [facility]
--- OUTSIDE RECORDS SUMMARY | 2025-02-15 16:32 | XMS_ITS | Encounter Summary ---
Author Name [facility] [place] [facility] [place] Organization [place] Address [address] [place] [address] Care Team Providers Care Zigzag Elastic Attacher Name Role Phone October Primary Care Provider [...] AID (WNR) Feb 02, 2015 MEDICAI D [id number] ABIMAEL ASKEW PATIENT MEDICARE (WNR) MEDICARE (M) PART B Jan 03, 2016 PART B [id number] [phone] ABIMAEL ASKEW PATIENT MEDICARE (WNR) MEDICARE (M) PART B Jan 03, 2016 PART B [id number] [phone] ABIMAEL ASKEW PATIENT MEDICARE (WNR) MEDICARE (M) PART A May 05, 2014 PART A [id number] ABIMAEL ASKEW PATIENT MEDICARE (WNR) MEDICARE (M) PART A May 05, 2014 PART A [id number] ABIMAEL ASKEW Yong PATIENT Selected Encounter This section includes the information on record at [place] for the Encounter. Date/Time Encounter Type Encounter Description Reason Provider Source November 23, 2024 10:04 AM Outpatient Encounter GENERAL INTERNAL MEDICINE [facility] Encounter Template Text not used by [place] Plan of Treatment: Future Appointments (+ 6 months) and Future Tests (+/- 45 days) The Plan of Treatment section includes future care activities for the patient [facility] [place] [facility] This section includes future appointments and future orders which are active, pending or scheduled. Future Appointments This section includes appointments that were scheduled to occur 6 months from the date of the Encounter, up to a maximum of 20 appointments. The data comes from all [facility]. Appointment Date/Time Appointment Type Appointme nt Facility Name November 29, 2024 11:30 AM AMBULATORY - RE[facility]AB MEDICIN E [facility] Dec 06, 2024 10:00 AM AMBULATORY - REHAB MEDICIN E [facility] Jan 11, 2025 02:00 PM AMBULATORY - REHAB MEDICIN E [facility] Jan 17, 2025 11:00 AM AMBULATORY - MEDICINE [facility] Feb 07, 2025 11:30 AM AMBULATORY - REHAB MEDICIN [facility] Feb 13, 2025 01:00 PM AMBULATORY - REHAB MEDICIN [facility] Apr 10, 2025 01:00 PM AMBULATORY - REHAB MEDICIN E [facility] Apr 23, 2025 01:00 PM AMBULATORY - REHAB MEDICIN E [facility] Apr 25, 2025 11:30 AM AMBULATORY - REHAB MEDICIN [facility] Active, Pending, and Scheduled Orders This section includes a listing of several types of active, pending, and scheduled orders, including clinic medications orders, diagnostic test orders, procedure orders and consult orders; where the start date of the order is 45 days before the date of the Encounter or 45 days after the date of theEncounter. The data comes from all [facility]. Test Date/Time Test Type Test Details Facility Name Oct 12, 2024 12:00 AM Laboratory - Chemi stry Order OCCULT BLOOD FIT X1 SCREEN STOOL FECES SP [facility] Oct 19, 2024 12:00 AM Laboratory - Chemi stry Order BASIC METABOLIC PANEL GREEN LI/HEP BLD/PLAS PLASMA SP [facility] Oct 19, 2024 12:00 AM Laboratory - Chemi stry Order IRON/TIBC PROFILE GOLD/RED SST SERUM SP [facility] Social History: Smoking Status (Most current) and [...] Current Smoking Status Comment Chip ity Oct 09, 2017 03:41 AM CURRENT TOBACCO USER [facility] Tobacco Use History This section includes a history of the smoking, or tobacco-related health factors, that were collected on or before the date of the Encounter. The data comes from the [place] facility where the Encounter took place. Date/Time Smoking Status/Tobacco Use Comment F acility Oct 08, 2017 09:04 PM ORYX ADMIT TOBACCO SCREEN NO [facility] May 31, 2016 06:37 PM LIFETIME NON-USER OF TOBACCO [facility] Aug 13, 2014 06:26 PM QUIT TOBACCO >7 YEARS AGO [facility] Jul 24, 2014 11:00 AM QUIT TOBACCO >7 YEARS AGO [facility] Jul 19, 2013 05:50 PM QUIT TOBACCO >7 YEARS AGO [facility] Apr 26, 2012 04:33 AM QUIT TOBACCO >7 YEARS AGO [facility] November 25, 2011 07:12 AM QUIT TOBACCO >7 YEARS AGO [facility] Jun 26, 2011 11:47 AM QUIT TOBACCO >7 YEARS AGO [facility] May 26, 2011 10:29 AM QUIT TOBACCO >7 YEARS AGO [facility] Feb 26, 2011 11:09 PM LIFETIME NON-USER OF TOBACCO [facility] Jan 24, 2011 03:35 AM LIFETIME NON-USER OF TOBACCO [facility] November 30, 2009 06:58 AM QUIT TOBACCO >7 YEARS AGO [facility] Jan 20, 2008 08:11 PM LIFETIME NON-USER OF TOBACCO [facility] Advance Directives: All historical and current Section Date Range: From patient's date of to the date document was created. This section includes ALL of a patient's completed or amended [place] Advance and Rescinded Directives. The entries below indicate that a directive exists for the patient, but an actual copy is not included with this document. The data comes from all [facility]. Date Advance Directives Provider Source Oct 12, 2024 ADVANCE DIRECTIVE RAHEEL MINER [facility] Oct 10, 2020 ADVANCE DIRECTIVE BARBY ALMAZAN Gwendolyn JIMENEZUI [facility] Oct 10, 2020 RESCINDED ADVANCE DIRECTIVE BARBY ALMAZAN [facility] Oct 13, 2014 ADVANCE DIRECTIVE STEFANIE MENCHACA [facility] Apr 28, 2012 ADVANCE DIRECTIVE DISCUSSION DOMINGA CHILDS [facility] Apr 08, 2006 ADVANCE DIRECTIVE PACHECO [facility] Radiology Reports: +/- 30 days of the [...] ABDOMEN AORTA ( AAA), LIMITED: JEROME ASKEW [id number] -[id number] M Exm Date: NOV 01, 2024@10:16 Req Phys: BRIANDA M Pat Loc: [facility] ANNUAL EVAL WEBSITE PROJECT MANAGER (Req'g L Img Loc: [facility]ULTR[facility]OUND Service: [facility], [facility] [address] [place] [address] (Case [id number] COMPLETE) US ABDOMEN AORTA (AAA), LIMITED (US Detailed) CPT:71624 Reason for Study: Screening for AAA Clinical History: Screen for abdominal aortic aneurysm in known male smoker. Report Status: Verified Date Reported: NOV 01, 2024 Date Verified: NOV 01, 2024 Manager Packaging E-Sig:/ES/PACHECO MARTIN Report: Case #[id number] EXAM: Abdominal aortic ultrasound HISTORY:Screening for AAA [...] findings. Primary Interpreting Staff: PACHECO MARTIN MD (Manager Packaging) Primary Interpreting Resident: CELINA GRAHAM, Vascular & Interventional Purchasing Engineer /PACHECO LI [facility] Encounter Notes: All associated encounter notes This section contains the clinical notes associated to the Encounter. Date/Time Encounter Note(s) Provider Source November 04, 2024 10:04 AM NONVA NOTE: LOCAL TITLE: COMMUNITY CARE-SABINA SELF PRESENTING CARE COORD PLAN STANDARD TITLE: NONVA NOTE DATE OF NOTE: NOVEMBER 04, 2024@10:04 ENTRY DATE: NOVEMBER 23, 2024@10:04:22 AUTHOR: SIRIAOctober COSIGNER: URGENCY: STATUS: COMPLETED COMMUNITY CARE-SABINA SELF PRESENTING CARE COORD PLAN [address] Has ADDENDA Emergency Notification Intake Date Presenting to the Facility: November Method of Contact: Notified from [facility] worklist Notification ID: [id number] [facility] Referral #: Closed - Submit for [facility] Name: Hospital: [facility] Address: [facility] [address] City: [place] State: [place] Zip Code: [address] [facility] Facility Point of Contact: Name: Marnie Gabriel Chief complaint: uti/groin pain Primary Diagnosis: Disposition Unknown at time of intake note entry No records pertinent to this ER Visit found in [facility]. Faxed request for records to [facility]. /james GINI BEVERLY ADVANCED CLAM SORTER Signed: 11/23/2024 10:07 Receipt Acknowledged By: 11/23/2024 10:58 /james/ ISAI CANO REGISTERED NURSE 11/23/2024 11:14 /james/ GINI LAMAR RN, ANP- ADULT NURSE PRACTITIONER 11/28/2024 ADDENDUM STATUS: COMPLETED Records r/t this episode of care can be found in [facility]. Please review attached DC summary and place any necessary referrals/consults TESS to avoid non-payment for follow-up services. /jamesOctober SIRIA ADVANCED CLAM SORTER Signed: 11/28/2024 10:15 GINI BEVERLY [facility]
--- OUTSIDE RECORDS SUMMARY | 2025-02-15 16:32 | XMS_ITS | Encounter Summary ---
Author Name [facility] [facility] [place] [facility] [place] Address [address] [place] [address] Care Team Providers Care Fine Unhairer Name Role Phone October Primary Care Provider [...] AID (WNR) Feb 02, 2015 MEDICAI D [id number] [phone] ABIMAEL ASKEW PATIENT MEDICARE (WNR) MEDICARE (M) PART B Jan 03, 2016 PART B [id number] ABIMAEL ASKEW PATIENT MEDICARE (WNR) MEDICARE (M) PART B Jan 03, 2016 PART B [id number] ABIMAEL ASKEW PATIENT MEDICARE (WNR) MEDICARE (M) PART A May 05, 2014 PART A [id number] [phone] ABIMAEL ASKEW PATIENT MEDICARE (WNR) MEDICARE (M) PART A May 05, 2014 PART A [id number] ABIMAEL ASKEW PATIENT Selected Encounter This section includes the information on record at [place] for the Encounter. Date/Time Encounter Type Encounter Description Reason Provider Source Nov 01, 2024 11:00 AM COMPRE OPH EXAM EST PT 1/> OPTOMETRY ICD-10-CM H25.813 Combined forms of age-related cataract, bilateral KARYBARBARA Rockwell [place] Encounter Template Text not used by [place] Assessments - Encounter Diagnoses This section includes the primary and secondary diagnoses documented for the Encounter. Date/Time Primary/Secondary Diagnosis Diagnosis Name Provider Source Nov 01, 2024 03:54 PM PRIMARY Combined forms of age-related cataract, bilateral BARBARA PRESTON [facility] Nov 01, 2024 03:54 PM SECONDARY Dry eye syndrome of bilateral lacrimal glands BARBARA PRESTON [facility] Nov 01, 2024 03:54 PM SECONDARY Presbyopia BARBARA PRESTON [facility] Plan of Treatment: Future Appointments (+ 6 months) and Future Tests (+/- 45 days) The Plan of Treatment section includes future care activities for the [facility] [place] [facility]. This section includes future appointments [...] 11:30 AM AMBULATORY - REHAB MEDICIN E [facility] Dec 06, 2024 10:00 AM AMBULATORY - REHAB MEDICIN E [facility] Jan 11, 2025 02:00 PM AMBULATORY - REHAB MEDICIN E [facility] Jan 17, 2025 11:00 AM AMBULATORY - MEDICINE [facility] Feb 07, 2025 11:30 AM AMBULATORY - REHAB MEDICIN E [facility] Feb 13, 2025 01:00 PM AMBULATORY - REHAB MEDICIN E [facility] Apr 10, 2025 01:00 PM AMBULATORY - REHAB MEDICIN E [facility] Apr 23, 2025 01:00 PM AMBULATORY - REHAB MEDICIN E [facility] Apr 25, 2025 11:30 AM [facility] Active, Pending, and Scheduled Orders This section includes a listing of several types of active, pending, and scheduled orders, including clinic medications orders, diagnostic test orders, procedure orders and consult orders; where the start date of the order is 45 days before the date of the Encounter or 45 days after the date of theEncounter. The data comes from all [facility] facilities. Test Date/Time Test Type Test Details Facility Name Oct 12, 2024 12:00 AM Laboratory - Chemi stry Order OCCULT BLOOD FIT X1 SCREEN STOOL FECES SP [facility] Oct 19, 2024 12:00 AM Laboratory - Chemi stry Order IRON/TIBC PROFILE GOLD/RED SST SERUM SP [facility] Oct 19, 2024 12:00 AM Laboratory - Chemi stry Order BASIC METABOLIC PANEL GREEN LI/HEP BLD/PLAS PLASMA SP [facility] Lab Results: +/- 30 days of the encounter This section includes the Chemistry and Hematology Lab Results on record with [place] for the patient. Radiology Reports and Pathology Reports are provided separately, in subsequent sections. Lab Results This section contains the Chemistry/Hematology Results that were resulted 30 days before or 30 daysafter the date of the Encounter. Date/Time Source Result Type Result - Unit Interpretation Reference Range Specimen Type Comment Oct 12, 2024 09:43 AM [facility] HGA1C BLOOD Specimen Type: BLOOD No comment entered. Ordering Provider: GINI LAMAR Report Released Date/Time: Aug 25, 2024 07:24 PM Reporting Lab: [facility] [address] Performing Lab: [facility] [address] HGA1C 5.8 4.0-6.0 Oct 12, 2024 09:43 AM [facility] FOLATE (STL-MA) SERUM Specimen Type: SERUM No comment entered. Ordering Provider: GINI LAMAR Report Released Date/Time: Aug 25, 2024 07:24 PM Reporting Lab: [facility] [address] Performing Lab: [facility] [address] FOLATE (STL-MA) 17.6 ng/mL 7-20 Oct 12, 2024 09:43 AM [facility] B12 SERUM Specimen Type: SERUM No comment entered. Ordering Provider: GINI LAMAR Report Released Date/Time: Aug 25, 2024 07:24 PM Reporting Lab: [facility] [address] Performing Lab: [facility] [address] B12 358 pg/mL 213-816 Oct 12, 2024 09:43 AM [facility] LIPID PANEL (STL) PLASMA Specimen Type: PLASM A Comment: No hemolysis noted. Ordering Provider: GINI LAMAR Report Released Date/Time: Aug 25, 2024 07:24 PM Reporting Lab: [facility] [address] Performing Lab: [facility] [address] CHOLESTEROL 105 mg/dL 0-200 TRIGLYCERIDE 71 mg/dL 0-150 CALCULATED LDL 63 mg/dL See Interp HDL(New) 28 mg/dL L > 40 Oct 12, 2024 09:43 AM [facility] VITAMIN D, 25-HYDROXY SERUM Specimen Type: SE RUM No comment entered. Ordering Provider: GINI LAMAR Report Released Date/Time: Aug 25, 2024 07:24 PM Reporting Lab: [facility] [address] Performing Lab: [facility] [address] VITAMIN D, 25-HYDROXY 35.2 ng/mL 30-96 Oct 12, 2024 09:43 AM [facility] TSH W/ REFLEX FT4 (STL) PLASMA Specimen Type: PLASMA No comment entered. Ordering Provider: GINI LAMAR Report Released Date/Time: Aug 25, 2024 07:24 PM Reporting Lab: [facility] [address] Performing Lab: [facility] [address] TSH 4.224 u[IU]/mL 0.470-5.000 Oct 12, 2024 09:43 AM [facility] PREALBUMIN SERUM Specimen Type: SERUM No comment entered. Ordering Provider: GINI LAMAR Report Released Date/Time: Aug 25, 2024 07:24 PM Reporting Lab: [facility] [address] [place] [id number] Performing Lab: [address] [address] PREALBUMIN 15 mg/dL L 16-42 Oct 12, 2024 09:43 AM [facility] COMPREHENSIVE METABOLIC PANEL PLASMA Specimen Type: PLASMA Comment: No hemolysis noted. Ordering Provider: GINI LAMAR Report Released Date/Time: Aug 25, 2024 07:24 PM Reporting Lab: [facility] [address] Performing Lab: [facility] [address] [facility] [address] CREATININE 0.95 mg/dL 0.70-1.30 UREA NITROGEN 21.3 [...] 83.47 >60 Oct 12, 2024 09:43 AM [facility] CYSTATIN C EGFR PANELS (STL-PB-MA) [...] Aug 25, 2024 07:24 PM Reporting Lab: [address] [address] Performing Lab: [address] [address] CYSTATIN C 1.70 mg/L 0.57-1.80 CKD-EPI CYSTATIN C (2011) 36.2 >60 CKD-EPI CREAT-CYSC (2020) 54.4 >60 CREATININE ([facility]) 0.95 mg/dL 0.7-1.3 Oct 12, 2024 09:43 AM [facility] CBC BLOOD Specimen Type: BLOOD No comment entered. Ordering Provider: GINI LAMAR Report Released Date/Time: Aug 25, 2024 07:24 PM Reporting Lab: [facility] [address] Performing Lab: [facility] [address] WBC 5.9 10*3/uL 3.6-11.2 RBC 3.78 10*6/uL [...] 10:00 AM VA-TOBACCO NEVER U SED CIGARETTES [facility] Tobacco Use History This section includes a history of the smoking, or tobacco-related health factors, that were collected on or before the date of the Encounter. The data comes from the [place] facility where the Encounter took place. Date/Time Smoking Status/Tobacco Use Comment F acility Oct 12, 2024 10:00 AM VA-TOBACCO NEVER U SED OTHER TYPE [facility] Sep 27, 2023 01:00 PM VA-TOBACCO NEVER USED [facility] Oct 15, 2022 08:00 AM VA-TOBACCO NEVER USED [facility] Oct 16, 2021 08:00 AM VA-TOBACCO FORMER USER [facility] Oct 16, 2021 08:00 AM VA-TOBACCO QUIT 15 YRS OR MORE [facility] Oct 10, 2020 08:00 AM VA-TOBACCO FORMER USER [facility] Oct 10, 2020 08:00 AM VA-TOBACCO QUIT 15 YRS OR MORE [facility] Oct 18, 2019 01:49 PM VA-TOBACCO FORMER USER [facility] Oct 18, 2019 01:49 PM VA-TOBACCO QUIT [address] [facility] Oct 18, 2019 01:49 PM VA-TOBACCO QUIT 5 TO < 15 YRS [facility] Oct 04, 2018 08:04 AM VA-TOBACCO FORMER USER [facility] Oct 04, 2018 08:04 AM VA-TOBACCO QUIT 15 YRS OR MORE [facility] Apr 06, 2011 03:10 PM QUIT TOBACCO >7 YEARS AGO [facility] Feb 02, 2011 03:20 PM LIFETIME NON-USER OF TOBACCO [facility] Aug 02, 2006 03:10 PM QUIT TOBACCO >7 YEARS AGO [facility] Apr 11, 2006 02:21 PM CURRENT NON-TOBACC O USER-HX OF USE [facility] Apr 11, 2006 02:21 PM TOBACCO TERMINATION STAGE [facility] Advance Directives: All historical and current [...] Oct 12, 2024 ADVANCE DIRECTIVE RAHEEL MINER [facility] Oct 10, 2020 ADVANCE DIRECTIVE BARBY ALMAZAN [facility] Oct 10, 2020 RESCINDED ADVANCE DIRECTIVE BARBY ALMAZAN [facility] Oct 13, 2014 ADVANCE DIRECTIVE STEFANIE MENCHACA [facility] Apr 28, 2012 ADVANCE DIRECTIVE DISCUSSION DOMINGA CHILDS [facility] Apr 08, 2006 ADVANCE DIRECTIVE PACHECO TOBIAS [facility] Radiology Reports: +/- 30 days of the [...] the Encounter. The data comes from all [place] treatment facilities. Date/Time Radiology Report Provider Source Nov 01, 2024 10:16 AM US ABDOMEN AORTA ( AAA), LIMITED: JEROME ASKEW [id number] -1950 M Exm Date: NOV 01, 2024@10:16 Req Phys: Pat Loc: [facility]I ANNUAL EVAL [employer] (Req'g L Img Loc: [facility]-ULTRASOUND Service: Unknown [address] [address] (Case [id number] COMPLETE) US ABDOMEN AORTA (AAA), LIMITED (US Detailed) CPT:82832 Reason for Study: Screening for AAA Clinical History: Screen for abdominal aortic aneurysm in known male smoker. Report Status: Verified Date Reported: NOV 01, 2024 Date Verified: NOV 01, 2024 Force Variation Equipment Tender E-Sig:/ES/PACHECO MARTIN Report: Case #[id number] EXAM: Abdominal aortic ultrasound HISTORY:Screening for AAA [...] findings. Primary Interpreting Staff: PACHECO MARTIN MD (Force Variation Equipment Tender) Primary Interpreting Resident: CELINA GRAHAM, Vascular & Interventional Physics Instructor /PACHECO LI [facility] Oct 12, 2024 07:30 AM US LIMITED & RENAL COMP-P (SCI): JEROME ASKEW [id number] -1950 M Exm Date: OCT 12, 2024@07:30 Req Phys: Pat Loc: [facility] ANNUAL EVAL [employer] (Req'g L Img Loc: [facility]-ULTRASOUND Service: Unknown [facility] [address] [place] [address] (Case [id number] COMPLETE) US ABDOMEN LTD, SINGLE ORG OR SARY(US Detailed) CPT:23772 Reason for Study: sci annual (Case [id number] COMPLETE) US RENAL COMPLETE (US Detailed) CPT:24986 Clinical History: Report Status: Verified Date Reported: OCT 12, 2024 Date Verified: OCT 12, 2024 Force Variation Equipment Tender E-Sig:/ES/PACHECO MARTIN Report: Case #: [id number], [id number] Exam: Renal and gallbladder ultrasound Comparison: 10/14/2023. [...] findings. Primary Interpreting Staff: PACHECO MARTIN MD (Force Variation Equipment Tender) Primary Interpreting Resident: CELINA GRAHAM, Vascular & Interventional Physics Instructor /PACHECO LI [facility] Encounter Notes: All associated encounter notes This section contains the clinical notes associated to the Encounter. Date/Time Encounter Note(s) Provider Source Jan 11, 2025 04:16 PM OPTOMETRY NOTE: LOCAL TITLE: EYEGLASS PRESCRIPTION NOTE STL STANDARD TITLE: OPTOMETRY NOTE DATE OF NOTE: JAN 11, 2025@16:16 ENTRY DATE: JAN 11, 2025@16:16:45 AUTHOR: NILAY FORRESTER COSIGNER: URGENCY: STATUS: COMPLETED DATE OF LAST EYE EXAM:JAN 11, 2025 OD: +1.00 -2.25 x010 OS: -0.25 -2.00 x003 Add: +2.75 OPPOSITE SIGNS INTENTIONAL LENS MATERIAL: Polycarbonate LENS TYPE: PAL - Previous wearer Other Add Ons: Other:polarized brown Additional Comments: Pt would like to update sunglasses from 03/27 with 10/27 SRx. /james/ Nilay Forrester OD Staff Physician, Optometry Signed: 01/11/2025 16:17 NILAY FORRESTER [facility] Nov 01, 2024 12:09 PM OPTOMETRY NOTE: LOCAL TITLE: EYEGLASS PRESCRIPTION NOTE STL STANDARD TITLE: OPTOMETRY NOTE DATE OF NOTE: NOV 01, 2024@12:09 ENTRY DATE: NOV 01, 2024@12:10:04 AUTHOR: CHASIDY PRESTON EXP COSIGNER: URGENCY: STATUS: COMPLETED DATE OF LAST EYE EXAM:NOV 01, 2024 OD: +1.00 -2.25 x010 OS: -0.25 -2.00 x003 Add: +2.75 OPPOSITE SIGNS INTENTIONAL LENS MATERIAL: Polycarbonate LENS TYPE: PAL - Previous wearer Other Add Ons: Photochromic lenses included due to medical condition, Anti-reflective Additional Comments: /james/ CHASIDY PRESTON OD SAW CLEANER Signed: 11/01/2024 12:12 CHASIDY PRESTON [facility] Nov 01, 2024 11:19 AM OPTOMETRY NOTE: LOCAL TITLE: OPTOMETRY NOTE STANDARD TITLE: OPTOMETRY NOTE DATE OF NOTE: NOV 01, 2024@11:19 ENTRY DATE: NOV 01, 2024@11:19:57 AUTHOR: CHASIDY PRESTON EXP COSIGNER: URGENCY: STATUS: COMPLETED Last seen: 01/06/23 CC: patient presents for comprehensive eye exam c/o blurry vision OD = OS with glasses, near > distance no eye pain/discomfort pt presents in [facility] Ocular meds: Celluvisc daily - needs refills Ocular ROS: (-) eye injuries (-) eye surgeries, injections or laser treatments h/o Superficial Keratitis OS 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 Family OcHX: (-) blindness (-) glaucoma (-) AMD (-) RD Cardiovascular ROS: no change from problem & medication lists [facility] Problem list, medications and allergies reviewed: CPRS Serology for Diabetes GLUCOSE 81 mg/dL 10/12/2024 09:43 HGA1C 5.8 % 10/12/2024 09:43 Cardiovascular BP: 122/67 (10/19/2024 14:25) Pulse: 69 (10/19/2024 14:25) Neuro: Orientation: Normal Psych: Mood/Affect: Normal Depression/suicide ideation: NO VISUAL ACUITY Distance Visual Acuity (cc) OD: 20/30+ OS: 20/40+ Pupils PERRL OU (-)APD Confrontation right inferior quadrantanopia Extra-Ocular Muscles Full OU Refraction OD: +1.00 -2.25 x010 20/25- OS: -0.25 -2.00 x003 20/30+ Add: +2.75 Externals/adnexa: Unremarkable OU LIT LAMP EXAMINATION OU Lids/Lashes/Lacrimal tr anterior and posterior blepharitis Conjunctiva/Sclera White/quiet Cornea/Tear Film tr+ PEE poor TBUT Ant Chamber Deep and quiet Iris Normal, (-)NVI Lens 2+ NS cataract OS>OD paracentral cortical vacuoles OS>OD tr PSC OD Intraocular Pressures (Tonopen) 1 gtt 0.5% proparacaine OU Date OD OS Time Meds 11/01/24 10 11 1141 none DILATED INTERNAL - pt understands side effects associated with dilation 1 gtt 1% tropicamide OU @ 1141 Optic Nerve OD 0.25 CDR Flat, pink, distinct (-)NVD OS 0.25 CDR Flat, pink, distinct (-)NVD Vessels 2/3 OU Macula OD Flat, clear (-)CSME OS Flat, clear (-)CSME Periphery OD Flat and attached 360; no holes, breaks or tears OS Flat and attached 360; no holes, breaks or tears Vitreous PVD OD Assessment 11/01/24 1. 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 Refractive Error/Presbyopia Plan 11/01/24 1. Defer cataract extraction until cataract limits vision to 20/40 or worse and symptoms indicate. 2. Continue Celluvisc BID OU. Patient will request SNF nurses instill twice daily. 3. Reviewed proper scanning techniques. 4. New SRx released. Consult placed for new glasses. Pt edu on all findings and given the opportunity to have questions answered RTC 1 year, sooner prn /james/ CHASIDY PRESTON OD SAW CLEANER Signed: 11/07/2024 08:03 CHASIDY PRESTON [facility]
--- OUTSIDE RECORDS SUMMARY | 2025-02-15 16:32 | XMS_ITS | Encounter Summary ---
Author Name [facility] [place] [facility] [place] Address [address] [place] [address] Care Team Providers Care Turbine Inspector Name Role Phone October Primary Care Provider [...] AID (WNR) Feb 02, 2015 MEDICAI D [id number] ABIMAEL ASKEW PATIENT MEDICARE (WNR) MEDICARE (M) PART B Jan 03, 2016 PART B [id number] ABIMAEL ASKEW PATIENT MEDICARE (WNR) MEDICARE (M) PART B Jan 03, 2016 PART B [id number] [phone] ABIMAEL ASKEW PATIENT MEDICARE (WNR) MEDICARE (M) PART A May 05, 2014 PART A [id number] [phone] ABIMAEL ASKEW PATIENT MEDICARE (WNR) MEDICARE (M) PART A May 05, 2014 PART A [id number] ABIMAEL ASKEW PATIENT Selected Encounter This section includes the information on record at [place] for the Encounter. Date/Time Encounter Type Encounter Description Reason Provider Source Jan 11, 2025 02:00 PM OFFICE O/P EST HI 40 MIN SPINAL CORD INJURY ICD-10-CM G82.51 Quadriplegia, C1-C4 complete MARBELLA WOOD [place] Encounter Template Text not used by [place] Assessments - Encounter Diagnoses This section includes the primary and secondary diagnoses documented for the Encounter. Date/Time Primary/Secondary Diagnosis Diagnosis Name Provider Source Jan 11, 2025 03:16 PM PRIMARY Quadriplegia, C1-C4 complete MARBELLA WOOD [facility] Jan 11, 2025 03:16 PM SECONDARY Other muscle spasm [facility] Plan of Treatment: Future Appointments (+ 6 months) and Future Tests (+/- 45 days) The Plan of Treatment section includes future care activities for the patient from all [place] treatmentfacilities. This section includes future appointments and future orders which are active, pending or scheduled. Future Appointments This section includes appointments that were scheduled to occur 6 months from the date of the Encounter, up to a maximum of 20 appointments. The data comes from all [place] treatment facilities. Appointment Date/Time Appointment Type Appointme nt Facility Name Jan 17, 2025 11:00 AM AMBULATORY - MEDICINE [facility] Feb 07, 2025 11:30 AM AMBULATORY - REHAB MEDICIN [facility] Feb 13, 2025 01:00 PM AMBULATORY - RE[facility]AB MEDICIN [facility] Apr 10, 2025 01:00 PM AMBULATORY - REHAB MEDICIN [facility] Apr 23, 2025 01:00 PM AMBULATORY - REHAB MEDICIN E [facility] Apr 25, 2025 11:30 AM AMBULATORY - REHAB MEDICIN [facility] Social History: Smoking Status (Most current) and Tobacco Use (All prior to encounter date) This section includes the most current, and the historical, smoking and tobacco- related health factors from the [place] facility where the Encounter took place. Current Smoking Status This section includes the most current smoking, or tobacco-related health factor, from the [place] facility where the Encounter took place. Date/Time Current Smoking Status Comment Chip ity Oct 12, 2024 10:00 AM VA-TOBACCO NEVER U SED CIGARETTES [facility] Tobacco Use History This section includes a history of the smoking, or tobacco-related health factors, that were collected on or before the date of the Encounter. The data comes from the [place] facility where the Encounter took place. Date/Time Smoking Status/Tobacco Use Comment F acility Oct 12, 2024 10:00 AM VA-TOBACCO NEVER U SED OTHER TYPE [facility] Sep 27, 2023 01:00 PM VA-TOBACCO NEVER USED [facility] Oct 15, 2022 08:00 AM VA-TOBACCO NEVER USED [facility] Oct 16, 2021 08:00 AM VA-TOBACCO FORMER USER [facility] Oct 16, 2021 08:00 AM VA-TOBACCO QUIT 15 YRS OR MORE [facility] Oct 10, 2020 08:00 AM VA-TOBACCO FORMER USER [facility] Oct 10, 2020 08:00 AM VA-TOBACCO QUIT 15 YRS OR MORE [facility] Oct 18, 2019 01:49 PM VA-TOBACCO FORMER USER [facility] Oct 18, 2019 01:49 PM VA-TOBACCO QUIT 15 YRS OR MORE [facility] Oct 18, 2019 01:49 PM VA-TOBACCO QUIT 5 TO < 15 YRS [facility] Oct 04, 2018 08:04 AM VA-TOBACCO FORMER USER [facility] Oct 04, 2018 08:04 AM VA-TOBACCO QUIT 15 YRS OR MORE [facility] Apr 06, 2011 03:10 PM QUIT TOBACCO >7 YEARS AGO [facility] Feb 02, 2011 03:20 PM LIFETIME NON-USER OF TOBACCO [facility] Aug 02, 2006 03:10 PM QUIT TOBACCO >7 YEARS AGO [facility] Apr 11, 2006 02:21 PM CURRENT NON-TOBACC O USER-HX OF USE [facility] Apr 11, 2006 02:21 PM TOBACCO TERMINATION STAGE [facility] Advance Directives: All historical and current Section Date Range: From patient's date of to the date document was created. This section includes ALL of a patient's completed or amended [place] Advance and Rescinded Directives. The entries below indicate that a directive exists for the patient, but an actual copy is not included with this document. The data comes from all [place] facilities. Date Advance Directives Provider Source Oct 12, 2024 ADVANCE DIRECTIVE RAHEEL MINER [facility] Oct 10, 2020 ADVANCE DIRECTIVE BARBY ALMAZAN [facility] Yong [facility] Oct 10, 2020 RESCINDED ADVANCE DIRECTIVE BARBY ALMAZAN [facility] Oct 13, 2014 ADVANCE DIRECTIVE STEFANIE MENCHACA [facility] Apr 28, 2012 ADVANCE DIRECTIVE DISCUSSION DOMINGA CHILDS [facility] Apr 08, 2006 ADVANCE DIRECTIVE PACHECO TOBIAS [facility] Encounter Notes: All associated encounter notes This section contains the clinical notes associated to the Encounter. Date/Time Encounter Note(s) Provider Source Jan 11, 2025 03:14 PM SPINAL CORD INJURY PROCEDURE NOTE: LOCAL TITLE: SCI BOTULINUM TOXIN INJECTION [facility] STANDARD TITLE: SPINAL CORD INJURY PROCEDURE NOTE DATE OF NOTE: JAN 11, 2025@15:14 ENTRY DATE: JAN 11, 2025@15:14:40 AUTHOR: MARBELLA WOOD COSIGNER: URGENCY: STATUS: COMPLETED SPINAL CORD INJURY SPASTICITY CLINIC NOTE CLINIC VISIT DATE: JAN 11, 2025 15:14 CHIEF COMPLAINT: Spasticity HISTORY OF PRESENT ILLNESS: JEROME ASKEW is a 74 year old with incomplete tetraparesis who presents for routine repeat ONAbotulinum toxin A injections. He also has an intrathecal baclofen pump for management of lower limb spasticity. Goessel is unaccompanied. was last seen in clinic on 10/12/24 for annual evaluation. ONABotulinum toxin A injections last received on 10/19/24; today is 12 weeks from prior injection. reports he is in a bad mood today due to uncomfortable ride [place] the [place] which has exacerbated his back pain. He reports he also has a buttock abrasion. He shares that his ears have been impacted with earwax for three weeks and is frustrated with the inability of staff at the senior care to help clean his ears. He would like his ears cleaned. He would also like to go to the eye clinic to picker his glasses. He is otherwise in his usual state of health and would like to proceed with his injections. The following was completed on 10/19/24: ONAbotulinum toxin A Total used: 400 units Total wasted: 0 units Muscle targeted/ Dose (units)/ dilution RIGHT Upper Extremity FDS 80 units at 2 sites (targeting D3, D4, D5) FDP 50 units at 2 sites FCR 50 units at 1 sites FCU 50 units at 1 site Lumbricals 60 units at 3 sites (20 units at D4, 20 units at D5, 20 units at D2) LEFT Upper Extremity FDS 50 units at 2 sites (targeting D4, D5) FDP 40 units Lumbricals 20 units at 2 sites (10 units at D3, 10 units at D4) REVIEW OF SYSTEMS Constitutional: No fever, No chills, No fatigue, No weight loss. Eye: No blurring, No double vision. Ear/Nose/Mouth/Throat: No dysphagia, No vertigo. Respiratory: No cough, No shortness of breath, No wheezing, No sputum production. Cardiovascular: No chest pain, No palpitations, No leg swelling, No syncope. Gastrointestinal: No constipation, No nausea, No vomiting, No diarrhea, No abdominal pain, No fecal incontinence. Genitourinary: No dysuria, No urinary frequency, No urinary incontinence, No urinary urgency. Hematology/Lymphatics: No anemia, No bleeding tendency, No swollen lymph glands. Integumentary: No rash, No pruritus, No breakdown. Neurologic: No Numbness, No Tingling, No Weakness, No confusion, No dizziness, No memory loss, + spasticity, No speech problems. Psychiatric: No anxiety, No depression, No sleeping problems. ALLERGIES: TIZANIDINE, BACTRIM, VENLAFAXINE CURRENT MEDICATIONS: Active Outpatient Medications (including Supplies): Active Outpatient Medications Status 1) BACLOFEN 2MG/ML PF INTRATHECAL AMP 40ML INJECT 80 MG/40 ML ACTIVE INTRATHECALLY EVERY 2 MONTHS FOR INTRATHECAL PUMP (ADMINISTER IN CLINIC) 2) CAMPHOR 0.5/MENTHOL 0.5% LOTION APPLY LIBERALLY TO AFFECTED ACTIVE AREA(S) THREE TIMES A DAY NEEDED - (EXTERNAL USE ONLY) Indication: FOR ITCHING 3) CARBOXYMETHYLCELLULOSE 1% OPH GEL 0.4ML INSTILL 1 DROP INTO ACTIVE AFFECTED EYE(S) TWICE A DAY Indication: FOR DRY EYE(S) 4) CATHETER ENGEL,LEG STRAP 2IN X 24IN USE STRAP ONCE A DAY ACTIVE Indication: TO SECURE CATHETER TUBING 5) CATHETER,PERRY 24FR 5CC BARD#[id number] USE CATHETER EVERY 2 ACTIVE WEEKS Indication: FOR URINARY RETENTION 6) HEMORRHOIDAL RTL OINT APPLY SPARINGLY RECTALLY TWICE DAILY ACTIVE NEEDED FOR RELIEF OF HEMORROIDAL DISCOMFORT. FOR EXTERNAL APPLICATION ONLY. 7) HYDROCORTISONE 2.5% CREAM APPLY SPARINGLY TO AFFECTED ACTIVE AREA(S) TWICE DAILY FOR EXTERNAL USE ONLY. Indication: FOR ECZEMATOUS DERMATITIS 8) URINARY DRAINAGE BAG BARD #[id number] USE BAG TO AFFECTED ACTIVE (S) AREA(S) EVERY 2 WEEKS FOR URINARY CARE [...] NEEDED Indication: FOR DERMATITIS 14) Non-VA LEVETIRACETAM 750MG TAB 750MG BY MOUTH TWICE A DAY ACTIVE Indication: [...] AFFECTED AREA(S) ACTIVE NEEDED 37 Total Medications PAST MEDICAL/SURGICAL HISTORY 1) Meningitis * (ICD-9-CM 322.9) 2) Recurrent major depressive episodes, mild (SNOMED CT 165744713) 3) Male erectile disorder 4) RT SUPRASPINATUS TEAR 5) T7 COMPRESSION FX 6) s/p ivc filter 7) Neurogenic bladder (SNOMED CT 472600799) 8) Neurogenic bowel (SNOMED CT 214480929) 9) Baclofen pump placement 10) Spasticity (SNOMED CT 436259923) 11) Quadriplegia (SNOMED CT 59079270) 12) History of recurrent urinary tract infection (SNOMED CT 840038668) 13) Hyperlipidemia (SNOMED CT 19890421) 14) Melanoma of Skin (ICD-9-CM 172.9) 15) Personal History of Venous Thrombosis and Embolism (ICD-9-CM V12.51) 16) Personal History of Traumatic Brain Injury 17) Paresthesia * (ICD-9-CM 782.0) 18) Sprains and strains of sacroiliac region (ICD-9-CM 846.9) 19) Seborrheic Keratosis 20) Chronic pain (SNOMED CT 69171180) 21) Myofascial pain (SNOMED CT 834682816) 22) Ingrowing nail with infection (SNOMED CT 56869863) 23) Debility 24) Neuropathic pain 25) Intrathecal infusion pump present 26) Benign essential hypertension 27) Iron deficiency 28) Folic acid deficiency 29) Hemorrhoids 30) Allergic Rhinitis (SCT 22469760) 31) GERD - Gastro-Esophageal Reflux Disease (SCT 999365022) 32) Severe protein-calorie malnutrition (Calixto: less than 60 percent of standard weight) 33) EEG abnormality with seizure 34) Peptic ulcer 35) Hypertrophic cardiomyopathy SOCIAL HISTORY [from medical records] 2 children assisted Elberta Worked [employer] 30 years, retired Tobacco use - quit >40 years ago Alcohol use - 1-2 drinks per month Illegal drug use - denies FAMILY HISTORY: [from medical records] Father : age 82, unknown health issues Mother : age ?80 from ? cancer Sister : 2, one from ? cancer, other had CVA. children : 2, healthy Grandchildren - 2 FOCUSED PHYSICAL EXAM Temperature: 98 F [36.7 C] (10/19/2024 14:25) Blood Pressure: 122/67 (10/19/2024 14:25) Pulse: 69 (10/19/2024 14:25) Respirations: 16 (10/19/2024 14:25) GENERAL: Well-developed, well nourished, no apparent distress HEENT: Moist mucous membranes CARDIAC: no cyanosis PULMONARY: unlabored respirations, normal effort, speaking full sentences ABDOMEN: non distended EXTREMITIES: warm TONE: Hypertonicity of bilateral upper limbs ASSESSMENT AND PLAN: AZARJEROME DUNCAN is a 74 year old with incomplete tetraparesis who presents for routine repeat ONAbotulinum toxin A injections. The following plan of care was developed through shared decision making in discussion with the , and is agreeable to plan of care. #Spasticity -s/p 400 units of ONAbotulinum toxinA to left and right extremity -Post-procedure instructions discussed -Continue daily stretching regimen ONAbotulinum toxin A Total used: 400 units Total wasted: 0 units Muscle targeted/ Dose (units)/ dilution RIGHT Upper Extremity FDS 80 units at 2 sites (targeting D3, D4, D5) FDP 50 units at 2 sites FCR 50 units at 1 sites FCU 50 units at 1 site Lumbricals 60 units at 3 sites (20 units at D4, 20 units at D5, 20 units at D2) LEFT Upper Extremity FDS 50 units at 2 sites (targeting D4, D5) FDP 40 units Lumbricals 20 units at 2 sites (10 units at D3, 10 units at D4) Verbal and IMED consent was obtained prior to the procedure. See separate CONSENT CLINICAL IMED note. The following time-out checklist was completed: [x]Correct patient identity (Full name, Full SSN, ) [x]Goessel correctly stated procedure to be performed [x] correctly stated site of procedure, including laterality. [x]IMED consent form completed [x]Procedure completed immediately following informed consent by same practitioner therefore site not marked [x]Patient position: Seated in power wheelchair Witnessed by GUIDO Courtney The risks and benefits were explained and all questions were answered. 400 units of ONAbotulinum toxin A were reconstituted with preservative free normal saline. 400 units were reconstituted at a concentration of 100 units per 1 cc of normal saline. The lot number and expiration date were: [id number] for two 100 unit vials, [id number] for two 100 unit vials. All of the areas injected were cleaned with alcohol prior to the injection and any bleeding was controlled easily with direct pressure. Aspiration, prior to injection of medication, was negative for blood at each injection site. EMG guidance was used for localization of all muscles prior to injection. A 37 mm Myoject needle was used for the procedure. The patient tolerated the procedure well. Post-procedure instructions discussed. -All questions and concerns addressed Time spent: 60 minutes of medical procedure, medical discussion, and patient education Return to clinic in 12 weeks for repeat injections (04/23/2025 13:00 [facility] MD [place]), or sooner as needed /james/ MARBELLA WOOD MD Spinal Cord Injury Staff Social Media Manager Signed: 01/12/2025 13:44 MARBELLA WOOD [facility] Jan 11, 2025 02:21 PM SPINAL CORD INJURY OUTPATIENT NOTE: LOCAL TITLE: SCI CLINIC VISIT ST STANDARD TITLE: SPINAL CORD INJURY OUTPATIENT NOTE DATE OF NOTE: JAN 11, 2025@14:21 ENTRY DATE: JAN 11, 2025@14:21:22 AUTHOR: KG CORRALES COSIGNER: URGENCY: STATUS: COMPLETED SCI CLINIC NURSING NOTE REASON FOR VISIT INITIAL VISIT ( ) FOLLOW UP VISIT ( Botox injection ) ANNUAL EVAL ( ) OTHER: VITAL SIGNS T: 97.3 P: 70 R: 18 BP: 138/65 O2 Sat: 97% WT: PAIN: YES:{ 9/10 } NO CURRENT PAIN:{ } PAIN SCALE # ( ) LOCATION: back DESCRIPTION: CONSTANT( x ) INTERMITTENT( ) SHARP( ) DULL( ) ACHING( ) BURNING( ) SHOOTING( ) CRAMPING( ) PIERCING( ) THROBBING( ) STINGING( ) SORENESS( ) TENDERNESS( ) TINGLING( ) PRESSURE( ) TIGHTNESS( ) HEAVINESS( ) STABBING( ) NUMBNESS( ) PINCHING( ) PAIN COMMENTS: ALERT & ORIENTED X 3. {x } X 2 { } X 1 ( ) MOTOR: GENERAL WEAKNESS ( ) LEFT SIDED WEAKNESS ( ) RIGHT SIDED WEAKNESS ( ) MULTIPLE SCLEROSIS: ( ) PARA: INCOMPLETE ( x ) COMPLETE ( ) QUAD: INCOMPLETE ( ) COMPLETE ( ) COMMENTS: RESPIRATORY: NORMAL RESPIRATION { x } CLEAR BREATH SOUNDS { } UNLABORED {x } LABORED { } COUGH { } COMMENTS: MOBILITY: MANUAL W/C { } ELECTRIC W/C {not provided by the IN } SCOOTER { } GURNEY { } AMBULATES ( ) WALKER { } CANE { } CRUTCHES { } OTHER { } COMMENTS: SMOKE: LIFETIME NON-SMOKER: { } CURRENT SMOKER: { x } FORMER SMOKER-NOW QUIT: { } AMOUNT { } DURATION { } DATE STOPPED SMOKING { } COMMENTS: /james/ Kg Corrales BSN, RN Registered Nurse Signed: 01/12/2025 07:52 KG CORRALES [facility]
--- OUTSIDE RECORDS SUMMARY | 2025-02-15 16:32 | XMS_ITS | Encounter Summary ---
Author Name [facility] [facility] [place] [facility] [place] [facility] [place] Address [address] [place] [address] Care Team Providers Care Admissions Supervisor Name Role Phone October Primary Care Provider [...] AID (WNR) Feb 02, 2015 MEDICAI D [id number] ABIMAEL ASKEW PATIENT MEDICARE (WNR) MEDICARE (M) PART B Jan 03, 2016 PART B [id number] ABIMAEL ASKEW PATIENT MEDICARE (WNR) MEDICARE (M) PART B Jan 03, 2016 PART B [id number] ABIMAEL ASKEW PATIENT MEDICARE (WNR) MEDICARE (M) PART A May 05, 2014 PART A [id number] [phone] ABIMAEL ASKEW PATIENT MEDICARE (WNR) MEDICARE (M) PART A May 05, 2014 PART A [id number] ABIMAEL ASKEW PATIENT Selected Encounter This section includes the information on record at [place] for the Encounter. Date/Time Encounter Type Encounter Description Reason Provider Source Oct 19, 2024 02:00 PM OFFICE O/P EST HI 40 MIN SPINAL CORD INJURY ICD-10-CM G82.51 Quadriplegia, C1-C4 complete MARBELLA WOOD Encounter Template Text not used by [place] Assessments - Encounter Diagnoses This section includes the primary and secondary diagnoses documented for the Encounter. Date/Time Primary/Secondary Diagnosis Diagnosis Name Provider Source Oct 19, 2024 02:52 PM PRIMARY Quadriplegia, C1-C4 complete RAUDEL CARROLL [facility] Oct 19, 2024 02:52 PM SECONDARY Other muscle spasm MARBELLA WOOD [facility] Plan of Treatment: Future Appointments (+ 6 months) and Future Tests (+/- 45 days) The Plan of Treatment section includes future care activities for the patient from all [place] treatmentfacilities. This section includes future appointments and future orders which are active, pending or scheduled. Future Appointments This section includes appointments that were scheduled to occur 6 months from the date of the Encounter, up to a maximum of 20 appointments. The data comes from all [place] treatment facilities. Appointment Date/Time Appointment Type Appointme nt Facility Name Nov 01, 2024 10:30 AM AMBULATORY - NONE . [facility] Nov 01, 2024 11:00 AM AMBULATORY - SURGERY [facility] November 29, 2024 11:30 AM AMBULATORY - REHAB MEDICIN E [facility] Dec 06, 2024 10:00 AM AMBULATORY - RE[facility]AB MEDICIN E [facility] Jan 11, 2025 02:00 PM AMBULATORY - RE[facility]AB MEDICIN [facility] Jan 17, 2025 11:00 AM AMBULATORY - MEDICINE [facility] Feb 07, 2025 11:30 AM AMBULATORY - REHAB MEDICIN E [facility] Feb 13, 2025 01:00 PM AMBULATORY - REHAB MEDICIN [facility] Apr 10, 2025 01:00 PM AMBULATORY - REHAB MEDICIN E [facility] Active, Pending, and Scheduled Orders This section includes a listing of several types of active, pending, and scheduled orders, including clinic medications orders, diagnostic test orders, procedure orders and consult orders; where the start date of the order is 45 days before the date of the Encounter or 45 days after the date of theEncounter. The data comes from all [place] treatment facilities. Test Date/Time Test Type Test Details Facility Name Oct 12, 2024 12:00 AM Laboratory - Chemi stry Order OCCULT BLOOD FIT X1 SCREEN STOOL FECES SP [facility] Oct 19, 2024 12:00 AM Laboratory - Chemi stry Order BASIC METABOLIC PANEL GREEN LI/HEP BLD/PLAS PLASMA SP [facility] Oct 19, 2024 12:00 AM Laboratory - Chemi stry Order IRON/TIBC PROFILE GOLD/RED SST SERUM SP [facility] Lab Results: +/- 30 days of the encounter This section includes the Chemistry and Hematology Lab Results on record with [place] for the patient. Radiology Reports and Pathology Reports are provided separately, in subsequent sections. Lab Results This section contains the Chemistry/Hematology Results that were resulted 30 days before or 30 daysafter the date of the Encounter. Date/Time Source Result Type Result - Unit Interpretation Reference Range Specimen Type Comment Oct 12, 2024 09:43 AM [facility] CBC BLOOD Specimen Type: BLOOD No comment entered. Ordering Provider: GINI LAMAR Report Released Date/Time: Aug 25, 2024 07:24 PM Reporting Lab: [facility] [address] Performing Lab: [facility] [address] WBC 5.9 10*3/uL 3.6-11.2 RBC 3.78 10*6/uL [...] 0.00-0. 20 Oct 12, 2024 09:43 AM [facility] COMPREHENSIVE METABOLIC PANEL PLASMA Specimen Type: PLASMA Comment: No hemolysis noted. Ordering Provider: GINI LAMAR Report Released Date/Time: Aug 25, 2024 07:24 PM Reporting Lab: [facility] [address] Performing Lab: [facility] [address] CREATININE 0.95 mg/dL 0.70-1.30 UREA NITROGEN 21.3 [...] 83.47 >60 Oct 12, 2024 09:43 AM [facility] LIPID PANEL (STL) PLASMA Specimen Type: PLASM A Comment: No hemolysis noted. Ordering Provider: GINI LAMAR Report Released Date/Time: Aug 25, 2024 07:24 PM Reporting Lab: [facility] [address] Performing Lab: [facility] [address] CHOLESTEROL 105 mg/dL 0-200 TRIGLYCERIDE 71 mg/dL 0-150 CALCULATED LDL 63 mg/dL See Interp HDL(New) 28 mg/dL L > 40 Oct 12, 2024 09:43 AM [facility] HGA1C BLOOD Specimen Type: BLOOD No comment entered. Ordering Provider: GINI LAMAR Report Released Date/Time: Aug 25, 2024 07:24 PM Reporting Lab: [facility] [address] Performing Lab: [facility] [address] HGA1C 5.8 4.0-6.0 Oct 12, 2024 09:43 AM [facility] B12 SERUM Specimen Type: SERUM No comment entered. Ordering Provider: GINI LAMAR Report Released Date/Time: Aug 25, 2024 07:24 PM Reporting Lab: [facility] [address] Performing Lab: [facility] [address] B12 358 pg/mL 213-816 Oct 12, 2024 09:43 AM [facility] FOLATE (STL-MA) SERUM Specimen Type: SERUM No comment entered. Ordering Provider: GINI LAMAR Report Released Date/Time: Aug 25, 2024 07:24 PM Reporting Lab: [facility] [address] Performing Lab: [facility] [address] FOLATE (STL-MA) 17.6 ng/mL 7-20 Oct 12, 2024 09:43 AM [facility] VITAMIN D, 25-HYDROXY SERUM Specimen Type: SE RUM No comment entered. Ordering Provider: GINI LAMAR Report Released Date/Time: Aug 25, 2024 07:24 PM Reporting Lab: [facility] [address] Performing Lab: [facility] [address] VITAMIN D, 25-HYDROXY 35.2 ng/mL 30-96 Oct 12, 2024 09:43 AM [facility] TSH W/ REFLEX FT4 (STL) PLASMA Specimen Type: PLASMA No comment entered. Ordering Provider: GINI LAMAR Report Released Date/Time: Aug 25, 2024 07:24 PM Reporting Lab: [facility] [address] Performing Lab: [facility] [address] TSH 4.224 u[IU]/mL 0.470-5.000 Oct 12, 2024 09:43 AM [facility] PREALBUMIN SERUM Specimen Type: SERUM No comment entered. Ordering Provider: GINI LAMAR Report Released Date/Time: Aug 25, 2024 07:24 PM Reporting Lab: [facility] [address] [facility] [address] Performing Lab: [address] [address] PREALBUMIN 15 mg/dL L 16-42 Oct 12, 2024 09:43 AM [facility] CYSTATIN C EGFR PANELS (STL-PB-MA) [...] Aug 25, 2024 07:24 PM Reporting Lab: [facility] [address] [facility] [address] Performing Lab: [address] [place] [address] CYSTATIN C 1.70 mg/L 0.57-1.80 CKD-EPI CYSTATIN [...] PM 98 69 122/67 16 94 8 [facility] Social History: Smoking Status (Most current) and Tobacco Use (All prior to encounter date) This section includes the most current, and the historical, smoking and tobacco- related health factors from the [place] facility where the Encounter took place. Current Smoking Status This section includes the most current smoking, or tobacco-related health factor, from the [place] facility where the Encounter took place. Date/Time Current Smoking Status Comment Chip pablo Oct 12, 2024 10:00 AM VA-TOBACCO NEVER U SED CIGARETTES [facility] Tobacco Use History This section includes a history of the smoking, or tobacco-related health factors, that were collected on or before the date of the Encounter. The data comes from the [place] facility where the Encounter took place. Date/Time Smoking Status/Tobacco Use Comment F miguel a Oct 12, 2024 10:00 AM VA-TOBACCO NEVER U SED OTHER TYPE [facility] Sep 27, 2023 01:00 PM VA-TOBACCO NEVER USED [facility] Oct 15, 2022 08:00 AM VA-TOBACCO NEVER USED [facility] Oct 16, 2021 08:00 AM VA-TOBACCO FORMER USER [facility] Oct 16, 2021 08:00 AM VA-TOBACCO QUIT 15 YRS OR MORE [facility] Oct 10, 2020 08:00 AM VA-TOBACCO FORMER USER [facility] Oct 10, 2020 08:00 AM VA-TOBACCO QUIT 15 YRS OR MORE [facility] Oct 18, 2019 01:49 PM VA-TOBACCO FORMER USER [facility] Oct 18, 2019 01:49 PM VA-TOBACCO QUIT 15 YRS OR MORE [facility] Oct 18, 2019 01:49 PM VA-TOBACCO QUIT 5 TO < 15 YRS [facility] Oct 04, 2018 08:04 AM VA-TOBACCO FORMER USER [facility] Oct 04, 2018 08:04 AM VA-TOBACCO QUIT 15 YRS OR MORE [facility] Apr 06, 2011 03:10 PM QUIT TOBACCO >7 YEARS AGO [facility] Feb 02, 2011 03:20 PM LIFETIME NON-USER OF TOBACCO [facility] Aug 02, 2006 03:10 PM QUIT TOBACCO >7 YEARS AGO [facility] Apr 11, 2006 02:21 PM CURRENT NON-TOBACC O USER-HX OF USE [facility] Apr 11, 2006 02:21 PM TOBACCO TERMINATION STAGE [facility] Advance Directives: All historical and current Section Date Range: From patient's date of to the date document was created. This section includes ALL of a patient's completed or amended [place] Advance and Rescinded Directives. The entries below indicate that a directive exists for the patient, but an actual copy is not included with this document. The data comes from all [place] facilities. Date Advance Directives Provider Source Oct 12, 2024 ADVANCE DIRECTIVE RAHEEL MINER [facility] Oct 10, 2020 ADVANCE DIRECTIVE BARBY ALMAZAN [facility] Oct 10, 2020 RESCINDED ADVANCE DIRECTIVE BARBY ALMAZAN [facility] Oct 13, 2014 ADVANCE DIRECTIVE STEFANIE MENCHACA [facility] Apr 28, 2012 ADVANCE DIRECTIVE DISCUSSION DOMINGA CHILDS [facility] Apr 08, 2006 ADVANCE DIRECTIVE PACHECO TOBIAS [facility] Radiology Reports: +/- 30 days of [...] the Encounter. The data comes from all [place] treatment facilities. 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 [place] [address] (Case [id number] COMPLETE) US ABDOMEN AORTA (AAA), LIMITED (US Detailed) CPT:11361 Reason for Study: Screening for AAA Clinical History: Screen for abdominal aortic aneurysm in known male smoker. Report Status: Verified Date Reported: NOV 01, 2024 Date Verified: NOV 01, 2024 [facility] Quality Control Technician E-Sig:/ES/PACHECO MARTIN Report: Case #[id number] EXAM: Abdominal aortic ultrasound HISTORY:Screening for AAA [...] findings. 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 [place] [address] (Case [id number] COMPLETE) US ABDOMEN LTD, SINGLE ORG OR SARY(US Detailed) CPT:60051 Reason for Study: sci annual (Case [id number] COMPLETE) US RENAL COMPLETE (US Detailed) CPT:81535 Clinical History: Report Status: Verified Date Reported: OCT 12, 2024 Date Verified: OCT 12, 2024 [employer] Quality Control Technician E-Sig:/ES/PACHECO MARTIN Report: Case #: [id number], [id number] Exam: Renal and gallbladder ultrasound Comparison: 10/14/2023. [...] findings. Primary Interpreting Staff: PACHECO MARTIN MD ([facility] Quality Control Technician) Primary Interpreting Resident: CELINA GRAHAM, Vascular & Interventional Instructor Extension Work /PACHECO LI [facility] Encounter Notes: All associated encounter notes This section contains the clinical notes associated to the Encounter. 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 [place] is unaccompanied. Thong was last seen in clinic on for SCI annual evaluation. ONABotulinum toxin injections last received on 12/27/2023. Thong is in his usual state of health. He went to the ER for worsening neck pain and was told pain was due to arthritis. No new fevers, chills. Thong is interested in proceeding with receiving his botulinum toxin injections. The following was completed on 12/27/2023: ONAbotulinum toxin A Total used: 400 units Total wasted: 0 units Muscle targeted/ Dose (units)/ dilution RIGHT Upper Extremity FDS 80 units at 2 sites (targeting D3, D4, D5) FDP 50 units at 1 sites FCR 50 units at 1 sites FCU 50 units at 1 site Lumbricals 60 units at 3 sites (20 units at D4, 20 units at D5, 20 units at D2) LEFT Upper Extremity FDS 50 units at 2 sites (targeting D4, D5) FDP 40 units Lumbricals 20 units at 2 sites (10 units at D3, 10 units at D4) Of note, thong continues to endorse worsening spasticity and requests intrathecal baclofen pump dose increase. Dose increase was deferred at annual evaluation appointment due to concerns for possible seizure in the setting of altered mental status requiring hospitalization at [facility]. REVIEW OF SYSTEMS Constitutional: No fever, No [...] Medications (including Supplies): Active Outpatient Medications Status = 1) BACLOFEN 2MG/ML PF INTRATHECAL AMP 40ML [...] SECURE CATHETER TUBING 4) CATHETER,PERRY 24FR 5CC BARD#[id number] USE CATHETER EVERY 2 ACTIVE WEEKS Indication: FOR URINARY RETENTION 5) DICLOFENAC NA 1% TOP GEL APPLY 4 GM TO AFFECTED AREA(S) FOUR ACTIVE TIMES A DAY DO NOT EXCEED MORE THAN 16 GRAMS DAILY TO ANY LOWER EXTREMITY JOINT. NOT MORE THAN 8 GRAMS DAILY TO ANY UPPER EXTREMITY JOINT. MAX 32GM/DAY OVER ALL JOINTS. (MEASURE DOSE WITH RULER ATTACHED INSIDE BOX) TO NECK Indication: FOR PAIN 6) HALOBETASOL PROPIONATE 0.05% OINT APPLY LIGHTLY TO AFFECTED ACTIVE AREA(S) TWICE DAILY (EXTERNAL USE ONLY) APPLY TO NEW BITES ON THE SKIN DAILY 7) HEMORRHOIDAL RTL OINT APPLY SPARINGLY RECTALLY TWICE DAILY ACTIVE NEEDED FOR RELIEF OF HEMORROIDAL DISCOMFORT. FOR EXTERNAL APPLICATION ONLY. 8) HYDROCORTISONE 2.5% CREAM APPLY SPARINGLY TO AFFECTED ACTIVE AREA(S) TWICE DAILY FOR EXTERNAL USE ONLY. Indication: FOR ECZEMATOUS DERMATITIS 9) URINARY DRAINAGE BAG BARD #[id number] USE BAG TO AFFECTED ACTIVE AREA(S) EVERY 2 WEEKS FOR URINARY CARE Active Non-VA Medications Status = 1) Non-VA ACETAMINOPHEN 500MG TAB 1000MG BY [...] OINT SPARINGLY TO AFFECTED AREA(S) ACTIVE NEEDED 38 Total Medications PAST MEDICAL/SURGICAL HISTORY 1) Meningitis * (ICD-9-CM 322.9) 2) Recurrent major depressive episodes, mild (SNOMED CT 541616212) 3) Male erectile disorder 4) RT SUPRASPINATUS TEAR 5) T7 COMPRESSION FX 6) s/p ivc filter 7) Neurogenic bladder (SNOMED CT 194185756) 8) Neurogenic bowel (SNOMED CT 907225562) 9) Baclofen pump placement 10) Spasticity (SNOMED CT 872554248) 11) Quadriplegia (SNOMED CT 30205070) 12) History of recurrent urinary tract infection (SNOMED CT 143463579) 13) Hyperlipidemia (SNOMED CT 25073830) 14) Melanoma of Skin (ICD-9-CM 172.9) 15) Personal History of Venous Thrombosis and Embolism (ICD-9-CM V12.51) 16) Personal History of Traumatic Brain Injury 17) Paresthesia * (ICD-9-CM 782.0) 18) Sprains and strains of sacroiliac region (ICD-9-CM 846.9) 19) Seborrheic Keratosis 20) Chronic pain (SNOMED CT 39429332) 21) Myofascial pain (SNOMED CT 444270364) 22) Ingrowing nail with infection (SNOMED CT 49262627) 23) Debility 24) Neuropathic pain 25) Intrathecal infusion pump present 26) Benign essential hypertension 27) Iron deficiency 28) Folic acid deficiency 29) Hemorrhoids 30) Allergic Rhinitis (SCT 29974900) 31) GERD - Gastro-Esophageal Reflux Disease ([facility] 615935626) 32) Severe protein-calorie malnutrition (Calixto: less than 60 percent of standard weight) 33) EEG abnormality with seizure 34) Peptic ulcer 35) Hypertrophic cardiomyopathy SOCIAL HISTORY [from medical records] 2 children [employer] Worked [employer] 30 years, retired Tobacco use - quit [...] sentences ABDOMEN: non distended EXTREMITIES: warm TONE: MAS 3-4 at bilateral finger flexors, MAS 3 at right wrist flexors ASSESSMENT AND PLAN: JEROME ASKEW is a 74 year 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 The following plan of care was developed through shared decision making in discussion with the , and is agreeable to plan of care. #Spasticity -s/p 400 units of ONAbotulinum toxinA to left and right upper extremity -Post-procedure instructions discussed -Continue daily stretching regimen -Order nonformulary consult for 400 units of onabotulinum toxin A for repeat injections after 12 weeks -Defer further increase to intrathecal baclofen pump as has had history of altered mental status on higher dosing, this was reviewed and explained to . Again offered botulinum toxin injections for lower extremities, defers. The following dosing and muscles were targeted at today's procedure: ONAbotulinum toxin A Total used: 400 units [...] patient identity (Full name, Full SSN, ) [x][place] correctly stated procedure to be performed [x][place] correctly stated site of procedure, including laterality. [...] The lot number and expiration date were: [id number] for three 100 unit vials and [id number] for one 100 unit vial. All of the areas injected were cleaned [...] -All questions and concerns addressed Time spent: 45 minutes of medical procedure, medical discussion, and patient education Return to clinic in 12 weeks for repeat injections, or sooner as needed /james/ MARBELLA WOOD MD Spinal Cord Injury Staff Clothing Trades Workers Signed: 10/19/2024 15:20 MARBELLA WOOD [facility] Oct 19, 2024 02:26 PM SPINAL CORD INJURY OUTPATIENT NOTE: LOCAL TITLE: SCI CLINIC VISIT ST STANDARD TITLE: SPINAL CORD INJURY OUTPATIENT NOTE DATE OF NOTE: OCT 19, 2024@14:26 ENTRY DATE: OCT 19, 2024@14:26:10 AUTHOR: DANIAL CARROLL COSIGNER: URGENCY: STATUS: COMPLETED SCI CLINIC NURSING NOTE REASON FOR VISIT INITIAL VISIT ( ) FOLLOW UP VISIT ( BOTOX INJECTIONS ) ANNUAL EVAL ( ) OTHER: VITAL SIGNS T:98 P:69 R:16 BP:122/67 O2 Sat:94 WT: PAIN: YES:{ X } NO CURRENT PAIN:{ } PAIN SCALE # (8-9 SI JOINT,9-10 NECK AND RIGHT SHOULDER ) LOCATION: DESCRIPTION: CONSTANT( X )INTERMITTENT( )SHARP( )DULL( )ACHING( ) BURNING( ) SHOOTING( ) CRAMPING( ) PIERCING( ) THROBBING( ) STINGING( ) SORENESS( ) TENDERNESS( ) TINGLING( ) PRESSURE( ) TIGHTNESS( ) HEAVINESS( ) STABBING( ) NUMBNESS( ) PINCHING( ) PAIN COMMENTS: ALERT & ORIENTED X 3. { X } X 2 { } X 1 ( ) MOTOR: MULTIPLE SCLEROSIS:{ } PARA: INCOMPLETE ( ) COMPLETE ( ) QUAD: INCOMPLETE ( ) COMPLETE (C-5 A-D ) COMMENTS: SKIN: WNL { } PRESSURE SORE ( ) BURN ( ) SURGICAL INCISSION ( ) HEALED ( ) NOT HEALED( ) COMMENTS:REPORTS SMALL COCCYX SLIT,RESIDENTIAL APPLYING DRESSING THAT STAYS IN PLACE FOR 2-3 DAYS. BILATERAL LOWER EXTREMITY EDEMA NOTED. APPEARANCE: NEAT { X } APPROPRIATE { X } UNKEPT { } COMMENTS: RESPIRATORY: NORMAL RESPIRATION { X } CLEAR BREATH SOUNDS { } UNLABORED { X } LABORED { } COUGH { } COMMENTS: GASTROINTESTINAL: NORMAL BOWEL FUNCTION ( X ) COLOSTOMY { } DIGITAL [id number] { } SUPPOSITORY { } LAXATIVES { } ENEMA { } ABDOMEN SOFT/NON-TENDER { } ABDOMEN DISTENDED { } NO ESTABLISHED BOWEL PROGRAM { X } LAST BM: THIS AM COMMENTS: GENITOURINARY: VOIDS { } EXTERNAL CATHETER { } URINAL { ] INTERMITTENT CATHS.( )- EVERY { } HOURS INDWEILLING PERRY { } SUPRAPUBIC CATHER { X } DATE LAST CHANGED { } ILEO { } COMMENTS: NUTRITION: REGULAR DIET { X } OTHER { } DIABETIC { } INSULIN DEPENDENT { } NON-INSULIN DEPENDENT { } RECENT WEIGHT LOSS { } GAIN { } COMMENTS: MOBILITY: MANUAL W/C { } ELECTRIC W/C { X ] SCOOTER { } GURNEY { } AMBULATES { } WALKER { } CANE { } CRUTCHES { } OTHER { } COMMENTS: VITAL SIGNS OBTAINED.SEEN BY PROVIDER. PLAN-FOLLOW UP IN SCI CLINIC ORDERED PER PROVIDER. /james/ DANIAL CARROLL Licensed Practical Nurse Signed: 10/19/2024 14:52 DANIAL CARROLL [facility]
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
--- OUTSIDE RECORDS SUMMARY | 2025-02-15 16:33 | XMS_ITS ---
ME MED NUTRITION INDIV SUBSEQ [facility] Encounter Summary Created on: February 15, 2025 JEROME ASKEW : 1950 Sex: Male Author Name [facility] Organization [facility] Address [address] [place] [address] Care Team Providers Care Floorworker Name Role Phone October Primary Care Provider [...] AID (WNR) Feb 02, 2015 MEDICAI D [id number] ABIMAEL ASKEW PATIENT MEDICARE (WNR) MEDICARE (M) PART B Jan 03, 2016 PART B [id number] ABIMAEL ASKEW PATIENT MEDICARE (WNR) MEDICARE (M) PART B Jan 03, 2016 PART B [id number] ABIMAEL ASKEW PATIENT MEDICARE (WNR) MEDICARE (M) PART A May 05, 2014 PART A [id number] ABIMAEL ASKEW PATIENT MEDICARE (WNR) MEDICARE (M) PART A May 05, 2014 PART A [id number] ABIMAEL ASKEW PATIENT Selected Encounter This section includes the information on record at ME for the Encounter. Date/Time Encounter Type Encounter Description Reason Provider Source Oct 12, 2024 12:00 PM MED NUTRITION INDIV SUBSEQ SPINAL CORD INJURY ICD-10-CM G82.51 Quadriplegia, C1-C4 complete BRISEYDA ROMO [place] Encounter Template Text not used by ME Assessments - Encounter Diagnoses This section includes the primary and secondary diagnoses documented for the Encounter. Date/Time Primary/Secondary Diagnosis Diagnosis Name Provider Source Oct 12, 2024 02:41 PM PRIMARY Quadriplegia, C1-C4 complete BRISEYDA ROMO [facility] Oct 12, 2024 02:41 PM SECONDARY Dietary counseling and surveillance BRISEYDA ROMO [facility] Plan of Treatment: Future Appointments (+ 6 months) and Future Tests (+/- 45 days) The Plan of Treatment section includes future care activities for the patient from all ME treatmentfacilities. This section includes future appointments and future orders which are active, pending or scheduled. Future Appointments This section includes appointments that were scheduled to occur 6 months from the date of the Encounter, up to a maximum of 20 appointments. The data comes from all ME treatment facilities. Appointment Date/Time Appointment Type Appointme nt Facility Name Oct 19, 2024 02:00 PM AMBULATORY - REHAB MEDICIN E [facility] Nov 01, 2024 10:30 AM AMBULATORY - NONE [facility] Nov 01, 2024 11:00 AM AMBULATORY - SURGERY [facility] November 29, 2024 11:30 AM AMBULATORY - REHAB MEDICIN E [facility] Dec 06, 2024 10:00 AM AMBULATORY - REHAB MEDICIN E [facility] Jan 11, 2025 02:00 PM [facility] Jan 17, 2025 11:00 AM AMBULATORY - MEDICINE [facility] Feb 07, 2025 11:30 AM AMBULATORY - REHAB MEDICIN E [facility] Feb 13, 2025 01:00 PM AMBULATORY - REHAB MEDICIN [facility] Apr 10, 2025 01:00 PM AMBULATORY - REHAB [facility] Active, Pending, and Scheduled Orders This section includes a listing of several types of active, pending, and scheduled orders, including clinic medications orders, diagnostic test orders, procedure orders and consult orders; where the start date of the order is 45 days before the date of the Encounter or 45 days after the date of theEncounter. The data comes from all [facility] facilities. Test Date/Time Test Type Test Details Facility Name Oct 12, 2024 12:00 AM Laboratory - Chemi stry Order OCCULT BLOOD FIT X1 SCREEN STOOL FECES [facility] Oct 19, 2024 12:00 AM Laboratory - Chemi stry Order BASIC METABOLIC PANEL GREEN LI/HEP BLD/PLAS PLASMA SP [facility] Oct 19, 2024 12:00 AM Laboratory - Chemi stry Order IRON/TIBC PROFILE GOLD/RED SST SERUM SP [facility] Lab Results: +/- 30 days of the encounter This section includes the Chemistry and Hematology Lab Results on record with ME for the patient. Radiology Reports and Pathology Reports are provided separately, in subsequent sections. Lab Results This section contains the Chemistry/Hematology Results that were resulted 30 days before or 30 daysafter the date of the Encounter. Date/Time Source Result Type Result - Unit Interpretation Reference Range Specimen Type Comment Oct 12, 2024 09:43 AM [facility] HGA1C BLOOD Specimen Type: BLOOD No comment entered. Ordering Provider: GINI LAMAR Report Released Date/Time: Aug 25, 2024 07:24 PM Reporting Lab: [facility] [address] [facility] [address] Performing Lab: [facility] [address] [facility] [address] HGA1C 5.8 4.0-6.0 Oct 12, 2024 09:43 AM [facility] FOLATE (STL-MA) SERUM Specimen Type: SERUM No comment entered. Ordering Provider: GINI LAMAR Report Released Date/Time: Aug 25, 2024 07:24 PM Reporting Lab: [facility] [address] [facility] [phone] Performing Lab: [facility] [address] [facility] [phone] FOLATE (STL-MA) 17.6 ng/mL 7-20 Oct 12, 2024 09:43 AM [facility] B12 SERUM Specimen Type: SERUM No comment entered. Ordering Provider: GINI LAMAR Report Released Date/Time: Aug 25, 2024 07:24 PM Reporting Lab: [facility] [address] [facility] [address] Performing Lab: [facility] [address] [facility] [address] B12 358 pg/mL 213-816 Oct 12, 2024 09:43 AM [facility] LIPID PANEL (STL) PLASMA Specimen Type: PLASM A Comment: No hemolysis noted. Ordering Provider: GINI LAMAR Report Released Date/Time: Aug 25, 2024 07:24 PM Reporting Lab: [facility] [address] [facility] [phone] Performing Lab: [facility] [address] [facility] [address] CHOLESTEROL 105 mg/dL 0-200 TRIGLYCERIDE 71 mg/dL 0-150 CALCULATED LDL 63 mg/dL See Interp HDL(New) 28 mg/dL L > 40 Oct 12, 2024 09:43 AM [facility] VITAMIN D, 25-HYDROXY SERUM Specimen Type: SE RUM No comment entered. Ordering Provider: GINI LAMAR Report Released Date/Time: Aug 25, 2024 07:24 PM Reporting Lab: [facility] [address] [facility] [address] Performing Lab: [facility] [address] [facility] [address] VITAMIN D, 25-HYDROXY 35.2 ng/mL 30-96 Oct 12, 2024 09:43 AM [facility] TSH W/ REFLEX FT4 (STL) PLASMA Specimen Type: PLASMA No comment entered. Ordering Provider: GINI LAMAR Report Released Date/Time: Aug 25, 2024 07:24 PM Reporting Lab: [facility] [address] [facility] [address] Performing Lab: [facility] #1 [facility] [address] TSH 4.224 u[IU]/mL 0.470-5.000 Oct 12, 2024 09:43 AM [facility] PREALBUMIN SERUM Specimen Type: SERUM No comment entered. Ordering Provider: GINI LAMAR Report Released Date/Time: Aug 25, 2024 07:24 PM Reporting Lab: [place] [id number] [facility] [address] Performing Lab: [address] [address] PREALBUMIN 15 mg/dL L 16-42 Oct 12, 2024 09:43 AM [facility] CYSTATIN C EGFR PANELS (STL-PB-MA) PLASMA Spec imen Type: PLASMA Comment: Choice of which of the reported eGFR values to use depends on the clinical situation. For example, for patients with severe muscle wasting or reduced muscle mass, eGFR calculated using the 2012 cystatin equation may be preferred. Ordering Provider: GINI LAMAR Report Released Date/Time: Aug 25, 2024 07:24 PM Reporting Lab: [place] [id number] [facility] [address] Performing Lab: [address] [address] CYSTATIN C 1.70 mg/L 0.57-1.80 CKD-EPI CYSTATIN C (2011) 36.2 >60 CKD-EPI CREAT-CYSC (2020) 54.4 >60 CREATININE ([facility]) 0.95 mg/dL 0.7-1.3 Oct 12, 2024 09:43 AM [facility] COMPREHENSIVE METABOLIC PANEL PLASMA Specimen Type: PLASMA Comment: No hemolysis noted. Ordering Provider: GINI LAMAR Report Released Date/Time: Aug 25, 2024 07:24 PM Reporting Lab: [facility] [address] [facility] [address] Performing Lab: [facility] [address] [facility] [address] CREATININE 0.95 mg/dL 0.70-1.30 UREA NITROGEN 21.3 [...] 83.47 >60 Oct 12, 2024 09:43 AM [facility] CBC BLOOD Specimen Type: BLOOD No comment entered. Ordering Provider: GINI LAMAR Report Released Date/Time: Aug 25, 2024 07:24 PM Reporting Lab: [facility] [address] [facility] [phone] Performing Lab: [facility] [address] [facility] [phone] WBC 5.9 10*3/uL 3.6-11.2 RBC 3.78 10*6/uL [...] 76 121/63 15 94 7 173 22 [facility] Social History: Smoking Status (Most current) and Tobacco Use (All prior to encounter date) This section includes the most current, and the historical, smoking and tobacco- related health factors from the ME facility where the Encounter took place. Current Smoking Status This section includes the most current smoking, or tobacco-related health factor, from the ME facility where the Encounter took place. Date/Time Current Smoking Status Comment Facil ity Oct 12, 2024 10:00 AM VA-TOBACCO NEVER U SED CIGARETTES [facility] Tobacco Use History This section includes a history of the smoking, or tobacco-related health factors, that were collected on or before the date of the Encounter. The data comes from the ME facility where the Encounter took place. Date/Time Smoking Status/Tobacco Use Comment F acility Oct 12, 2024 10:00 AM VA-TOBACCO NEVER U SED OTHER TYPE [facility] Sep 27, 2023 01:00 PM VA-TOBACCO NEVER USED [facility] Oct 15, 2022 08:00 AM VA-TOBACCO NEVER USED [facility] Oct 16, 2021 08:00 AM VA-TOBACCO FORMER USER [facility] Oct 16, 2021 08:00 AM VA-TOBACCO QUIT 15 YRS OR MORE [facility] Oct 10, 2020 08:00 AM VA-TOBACCO FORMER USER [facility] Oct 10, 2020 08:00 AM VA-TOBACCO QUIT 15 YRS OR MORE [facility] Oct 18, 2019 01:49 PM VA-TOBACCO FORMER USER [facility] Oct 18, 2019 01:49 PM VA-TOBACCO QUIT 15 YRS OR MORE [facility] Oct 18, 2019 01:49 PM VA-TOBACCO QUIT 5 TO < 15 YRS [facility] Oct 04, 2018 08:04 AM VA-TOBACCO FORMER USER [facility] Oct 04, 2018 08:04 AM VA-TOBACCO QUIT 15 YRS OR MORE [facility] Apr 06, 2011 03:10 PM QUIT TOBACCO >7 YEARS AGO [facility] Feb 02, 2011 03:20 PM LIFETIME NON-USER OF TOBACCO [facility] Aug 02, 2006 03:10 PM QUIT TOBACCO >7 YEARS AGO [facility] Apr 11, 2006 02:21 PM CURRENT NON-TOBACC O USER-HX OF USE [facility] Apr 11, 2006 02:21 PM TOBACCO TERMINATION STAGE [facility] Advance Directives: All historical and current Section Date Range: From patient's date of to the date document was created. This section includes ALL of a patient's completed or amended ME Advance and Rescinded Directives. The entries below indicate that a directive exists for the patient, but an actual copy is not included with this document. The data comes from all ME facilities. Date Advance Directives Provider Source Oct 12, 2024 ADVANCE DIRECTIVE RAHEEL MINER [facility] Oct 10, 2020 ADVANCE DIRECTIVE BARBY ALMAZAN Gwendolyn [facility] Oct 10, 2020 RESCINDED ADVANCE DIRECTIVE BARBY ALMAZAN [facility] Oct 13, 2014 ADVANCE DIRECTIVE STEFANIE MENCHACA [facility] Apr 28, 2012 ADVANCE DIRECTIVE DISCUSSION DOMINGA CHILDS [facility] Apr 08, 2006 ADVANCE DIRECTIVE PACHECO TOBIAS [facility] Radiology Reports: +/- 30 days [...] the Encounter. The data comes from all ME treatment facilities. Date/Time Radiology Report Provider Source Nov 01, 2024 10:16 AM US ABDOMEN AORTA ( AAA), LIMITED: AZARJEROME DUNCAN [id number] -1950 M Exm Date: NOV 01, 2024@10:16 Req Phys: LAMAR,OCTOBER M Pat Loc: [facility] ANNUAL EVAL NUCLEAR TECHNICIAN (Req'g L Img Loc: [facility] Service: Unknown [address] [address] (Case [id number] COMPLETE) US ABDOMEN AORTA (AAA), LIMITED (US Detailed) CPT:45031 Reason for Study: Screening for AAA Clinical History: Screen for abdominal aortic aneurysm in known male smoker. Report Status: Verified Date Reported: NOV 01, 2024 Date Verified: NOV 01, 2024 Tool And Die Supervisor E-Sig:/ES/PACHECO MARTIN Report: Case #[id number] EXAM: Abdominal aortic ultrasound HISTORY:Screening for AAA [...] findings. Primary Interpreting Staff: PACHECO MARTIN MD (Tool And Die Supervisor) Primary Interpreting Resident: CELINA GRAHAM, Vascular & Interventional Metal Cleaner /PACHECO LI [facility] Oct 12, 2024 07:30 AM US LIMITED & RENAL COMP-P (SCI): JEROME ASKEW [id number] -1950 M Exm Date: OCT 12, 2024@07:30 Req Phys: LAMAR,OCTOBER M Pat Loc: [facility] ANNUAL EVAL NUCLEAR TECHNICIAN (Req'g L Img Loc: [facility] Service: Unknown [facility], [address] [place] [address] (Case [id number] COMPLETE) US ABDOMEN LTD, SINGLE ORG OR SARY(US Detailed) CPT:64561 Reason for Study: sci annual (Case [id number] COMPLETE) US RENAL COMPLETE (US Detailed) CPT:05698 Clinical History: Report Status: Verified Date Reported: OCT 12, 2024 Date Verified: OCT 12, 2024 Tool And Die Supervisor E-Sig:/ES/PACHECO MARTIN Report: Case #: [id number], [id number] Exam: Renal and gallbladder ultrasound Comparison: 10/14/2023. [...] findings. Primary Interpreting Staff: PACHECO MARTIN MD (Tool And Die Supervisor) Primary Interpreting Resident: CELINA GRAHAM, Vascular & Interventional Metal Cleaner /PACHECO LI [facility] Encounter Notes: All associated encounter notes This section contains the clinical notes associated to the Encounter. Date/Time Encounter Note(s) Provider Source Oct 12, 2024 10:15 AM SPINAL CORD INJURY ANNUAL EVALUATION NOTE: LOCAL TITLE: SCI ANNUAL EVAL NUTRITION STANDARD TITLE: SPINAL CORD INJURY ANNUAL EVALUATION NOTE DATE OF NOTE: OCT 12, 2024@10:15 ENTRY DATE: OCT 12, 2024@10:15:12 AUTHOR: WEATHERHOLT,BERTO EXP COSIGNER: URGENCY: STATUS: COMPLETED Modality of Care: Face to face NUTRITION REASSESSMENT Diagnosis: SCI annual evaluation Time spent with [place]: 30 minutes BMI: 21.7 Last appointment date: 08/23/24 CLIENT HISTORY Patient Medical History: Quadriplegia Hyperlipidemia Benign essential hypertension Iron deficiency Folic acid deficiency GERD - Gastro-Esophageal Reflux Disease Severe protein-calorie malnutrition (Calixto: less than 60 percent of standard weight) FOOD AND NUTRITION RELATED HISTORY -has been trying to get his wt up, his goal is 180lb -lives in a [place], states a new company purchased the home and changes have been made to the food that is served. B: 2 bowls of cereal with whole milk and 2 strips of villarreal (once a week) L: cold cut sandwich (meat/cheese) with chips D: bbq chicken breast with 1 cup of noodles, eats carrots/cauliflower/brocco li only, when they are served he gets double Snack: had some chips that someone picked up for him. notes that he has money for food/snacks and they will take him to the store -notes that at times he eats 100% and is still hungry, can ask for seconds but states they often run out or have already cleaned up. OUTPATIENT MEDICATIONS Non-VA ASCORBIC ACID 500MG TAB 500MG BY MOUTH ONCE A DAY ACTIVE Non-VA ATORVASTATIN CALCIUM 80MG TAB 80MG BY MOUTH EVERY ACTIVE Non-VA BISACODYL 10MG ENEMA CONTENTS OF 1 ENEMA RECTALLY ACTIVE Non-VA CRANBERRY EXTRACT CAP/TAB 1 CAP/TAB BY MOUTH TWICE A ACTIVE Non-VA FERROUS SULFATE 325MG TAB 325MG BY MOUTH EVERY OTHER ACTIVE Non-VA FOLIC ACID 1MG TAB 1MG BY MOUTH ONCE A DAY ACTIVE Non-VA LOPERAMIDE HCL 2MG CAP 2MG BY MOUTH THREE TIMES A DAY ACTIVE Non-VA MAGNESIUM CITRATE LIQUID 1 BOTTLE BY MOUTH ONCE A DAY ACTIVE Non-VA PANTOPRAZOLE NA 40MG EC TAB 40MG BY MOUTH TWICE A DAY ACTIVE Non-VA POLYETHYLENE GLYCOL 3350 ORAL PWDR 1 CAPFUL BY MOUTH ACTIVE Non-VA POLYETHYLENE GLYCOL 3350 ORAL PWDR 1 CAPFUL BY MOUTH ACTIVE Non-VA PSYLLIUM ORAL PWD 1 TEASPOONFUL BY MOUTH ONCE A DAY ACTIVE Non-VA SENNOSIDES 8.6MG TAB 8.6MG BY MOUTH TWICE DAILY ACTIVE Non-VA SIMETHICONE 80MG CHEW TAB 80MG BY MOUTH TWICE DAILY ACTIVE PHYSICAL ACTIVITY AND FUNCTION Nutrition related ADLs: -is fed by staff -lives in a [place], meals are prepared for him ANTHROPOMETRIC MEASUREMENTS Ht: 75 in Wt: 173 lb [78.47 kg] (10/12/2024) stated wt 198lb 11/24/23 stated wt 189lb 02/09/24 stated wt 207lb stated wt 173lb 08/23/24 Weight History/Significant changes: Patient Weight History - Last Four 1. 173.0 lbs. / 78.5 kg. on OCT 12, 2024@09:25:47 2. 202.0 lbs. / 91.6 kg. on OCT 14, 2023@08:00 3. 195.0 lbs. / 88.5 kg. on OCT 15, 2022@08:00 4. 193.2 lbs. / 87.6 kg. on OCT 16, 2021@08:00 BMI: 21.7 BIOCHEMICAL DATA/MEDICAL TESTS AND PROCEDURES HGA1C 6.0 % 10/14/2023 11:32 TRIGLYCERIDE 48 mg/dL 10/14/2023 11:32 CHOLESTEROL 98 mg/dL 10/14/2023 11:32 HDL(New) 34 L mg/dL 10/14/2023 11:32 CALCULATED LDL 54 mg/dL 10/14/2023 11:32 NUTRITION FOCUSED PHYSICAL FINDINGS -no issues chewing or swallowing -c/o some liquid bowel movements, related to antibiotics -some muscle loss related to sci -malnutrition as resolved Estimated daily needs: Fiber: 20 grams per day NUTRITION DIAGNOSIS: Resolved Based on the ASPEN/AND malnutrition diagnosis guide (with = or > 2 indicators present), the following clinical characteristics support a diagnosis of: Severe protein-calorie malnutrition in the context of: Starvation related as evidenced by: Weight loss: > 7.5% in 3 months *improved Insufficient energy intake < 50% of estimated energy requirement for = or > 1 month *resolved Resolved Inadequate oral intake related to decreased ability to consume adequate nutrition (illness/physical-metaboli c) as evidenced by reported decreased intake and reported wt loss. NUTRITION INTERVENTIONS: Diet: -general healthy diet --Nutrition Education Content Content related nutrition education: Education on nutrition's influence on health: -discussed health wt goals for sci -encouraged 3 meals per day, especially if they are smaller meals. Method of education: verbal Response: appropriate Barriers to learning/comprehension: none/good NUTRITION MONITORING/EVALUATION: Monitor: wt Goal: wt to remain at least 173lb, with no wt loss.-goal achieved, ongoing RTC: annual sci visit *RD contact information provided /es/ Berto Romo RD, [place] Clinical Dietitian Signed: 10/13/2024 08:52 BERTO ROMO [facility]
--- OUTSIDE RECORDS SUMMARY | 2025-02-15 16:33 | XMS_ITS | Encounter Summary ---
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 Date/Time Encounter Type Encounter Description Reason Provider Source Aug 15, 2024 01:47 PM Outpatient Encounter GENERAL INTERNAL MEDICINE HANNA CAMPOS [facility] Encounter Template Text not used by [place] Plan of Treatment: Future Appointments (+ 6 months) and Future Tests (+/- 45 days) The Plan of Treatment section includes future care activities for the patient from all [place] treatmentfacilities. This section includes future appointments and future orders which are active, pending or scheduled. Future Appointments This section includes appointments that were scheduled to occur 6 months from the date of the Encounter, up to a maximum of 20 appointments. The data comes from all [place] treatment facilities. Appointment Date/Time Appointment Type Appointme nt Facility Name Aug 23, 2024 02:30 PM AMBULATORY - REHAB MEDICIN E [facility] Aug 30, 2024 01:00 PM AMBULATORY - MEDICINE [facility] Oct 03, 2024 01:00 PM AMBULATORY - REHAB MEDICIN E [facility] Oct 12, 2024 08:00 AM AMBULATORY - REHAB MEDICIN E [facility] Oct 12, 2024 08:30 AM AMBULATORY - NONE [facility] Oct 12, 2024 09:00 AM AMBULATORY - REHAB MEDICIN E [facility] Oct 12, 2024 10:00 AM AMBULATORY - REHAB MEDICIN E [facility] Oct 12, 2024 10:30 AM AMBULATORY - REHAB MEDICIN E [facility] Oct 12, 2024 11:00 AM AMBULATORY - REHAB MEDICIN E [facility] Oct 12, 2024 11:30 AM AMBULATORY - REHAB MEDICIN E [facility] Oct 12, 2024 12:00 PM AMBULATORY - REHAB MEDICIN E [facility] Oct 12, 2024 12:30 PM AMBULATORY - REHAB MEDICIN E [facility] Oct 12, 2024 01:30 PM AMBULATORY - REHAB MEDICIN E [facility] Oct 19, 2024 02:00 PM AMBULATORY - REHAB MEDICIN E [facility] Nov 01, 2024 10:30 AM AMBULATORY - NONE Gwendolyn Beach [facility] Nov 01, 2024 11:00 AM AMBULATORY - SURGERY [facility] D[facility] GARNER [facility] November 29, 2024 11:30 AM AMBULATORY - REHAB MEDICIN E [facility] Dec 06, 2024 10:00 AM AMBULATORY - REHAB MEDICIN E [facility] Jan 11, 2025 02:00 PM AMBULATORY - REHAB MEDICIN E [facility] Jan 17, 2025 11:00 AM AMBULATORY - MEDICINE [facility] Social History: Smoking Status (Most current) and Tobacco Use (All prior to encounter date) This section includes the most current, and the historical, smoking and tobacco- related health factors from the [place] facility where the Encounter took place. Current Smoking Status This section includes the most current smoking, or tobacco-related health factor, from the [place] facility where the Encounter took place. Date/Time Current Smoking Status Comment Chip pablo Oct 09, 2017 03:41 AM CURRENT TOBACCO USER [facility] Tobacco Use History This section includes a history of the smoking, or tobacco-related health factors, that were collected on or before the date of the Encounter. The data comes from the [place] facility where the Encounter took place. Date/Time Smoking Status/Tobacco Use Comment Moris grady Oct 08, 2017 09:04 PM ORYX ADMIT TOBACCO SCREEN NO [facility] May 31, 2016 06:37 PM LIFETIME NON-USER OF TOBACCO [facility] Aug 13, 2014 06:26 PM QUIT TOBACCO >7 YEARS AGO [facility] Jul 24, 2014 11:00 AM QUIT TOBACCO >7 YEARS AGO [facility] Jul 19, 2013 05:50 PM QUIT TOBACCO >7 YEARS AGO [facility] Apr 26, 2012 04:33 AM QUIT TOBACCO >7 YEARS AGO [facility] November 25, 2011 07:12 AM QUIT TOBACCO >7 YEARS AGO [facility] Jun 26, 2011 11:47 AM QUIT TOBACCO >7 YEARS AGO [facility] May 26, 2011 10:29 AM QUIT TOBACCO >7 YEARS AGO [facility] Feb 26, 2011 11:09 PM LIFETIME NON-USER OF TOBACCO [facility] Jan 24, 2011 03:35 AM LIFETIME NON-USER OF TOBACCO [facility] November 30, 2009 06:58 AM QUIT TOBACCO >7 YEARS AGO [facility] Jan 20, 2008 08:11 PM LIFETIME NON-USER OF TOBACCO [facility] Advance Directives: All historical and current Section Date Range: From patient's date of to the date document was created. This section includes ALL of a patient's completed or amended [place] Advance and Rescinded Directives. The entries below indicate that a directive exists for the patient, but an actual copy is not included with this document. The data comes from all [place] facilities. Date Advance Directives Provider Source Oct 12, 2024 ADVANCE DIRECTIVE RAHEEL MINER [facility] Oct 10, 2020 ADVANCE DIRECTIVE BARBY ALMAZAN [facility] Oct 10, 2020 RESCINDED ADVANCE DIRECTIVE BARBY ALMAZAN [facility] Oct 13, 2014 ADVANCE DIRECTIVE STEFANIE MENCHACA [facility] Apr 28, 2012 ADVANCE DIRECTIVE DISCUSSION DOMINGA CHILDS [facility] Apr 08, 2006 ADVANCE DIRECTIVE PACHECO TOBIAS [facility] Encounter Notes: All associated encounter notes This section contains the clinical notes associated to the Encounter. Date/Time Encounter Note(s) Provider Source Aug 11, 2024 01:47 PM NONVA NOTE: LOCAL TITLE: [facility] CARE COORD PLAN STANDARD TITLE: NONVA NOTE DATE OF NOTE: AUG 11, 2024@13:47 ENTRY DATE: AUG 15, 2024@13:47:32 AUTHOR: CHELSEA CAMPOS COSIGNER: URGENCY: STATUS: COMPLETED Emergency Notification Intake Date Presenting to the Facility: Aug Method of Contact: Submitted to Centralized Call Center Notification ID: [id number] [facility] Referral #: [id number] Clinical [facility] Name: Hospital: [facility] Address: City: [place] State: [place] Zip Code: Phone : Community Facility Point of Contact: Name: Phone: Chief complaint: groin pain Primary Diagnosis: Disposition Unknown at time of intake note entry [place] [facility]. Alerting PCP team to this note for continuity of care. Records r/t this episode of care sent to [facility] for scanning. Evaluated and released from ED for:Suprapubic catheter dysfunction, Abnormal urinalysis Discharge Summary Records:SHARED SECURELY WITH PACT RN AND SENT TO [facility] FOR SCANNING Hospital/discharge Summary (per discharge note): 74-year-old male with history of suprapubic Martínez catheter present in the emergency department for evaluation for urinary symptoms. Patient does have a suprapubic Martínez with that was last changed approximately 2 weeks ago. Patient does describe increased urinary symptoms. Patient states it does feel different than his typical UTI. Patient does describe urinary burning sensation. Patient is not passing urine through his urethra but only through the suprapubic Martínez.Suprapubic Martínez catheter was changed under sterile procedure. Patient has been having urinary symptoms for approximately last 2 weeks. I discussed the option of ordering a urine culture or starting the patient on antibiotics and patient prefers to be started on antibiotics. Patient has previously been on Augmentin without issue. Patient was willing to try Augmentin again. Important Medication Changes: Start - amoxicillin-pot clavulanate 875-125 mg tablet 1 tablet PO Q12H 7 Days Stop -N/A Change-N/A *Medication reconciliation needed* Post-Discharge Needs PACT: 1) [facility] P[facility] follow up N/A PACT Please place the below consults:N/A Specialty:N/A ([facility] or [facility] internal consults needed for ALL follow up care) Please make addendum confirming consult placement for follow-up care /james/ CHELSEA N ANDRES BSN RN REGISTERED NURSE Signed: 08/15/2024 13:53 Receipt Acknowledged By: 08/15/2024 14:13 /es/ ISAI CANO REGISTERED NURSE 08/15/2024 13:54 /es/ GINI LAMAR RN, ANP- ADULT NURSE PRACTITIONER CHELSEA CAMPOS [facility]
--- OUTSIDE RECORDS SUMMARY | 2025-02-15 16:33 | XMS_ITS ---
AL VITAL SIGNS RECORDED [facility] Encounter Summary Created on: February 15, 2025 JEROME ASKEW : 1950 Sex: Male Author Name [facility] Organization [facility] Address [address] [place] [address] Care Team Providers Care Cane Stripper Name Role Phone October Primary Care Provider [...] AID (WNR) Feb 02, 2015 MEDICAI D [id number] ABIMAEL ASKEW PATIENT MEDICARE (WNR) MEDICARE (M) PART B Jan 03, 2016 PART B [id number] [phone] ABIMAEL ASKEW PATIENT MEDICARE (WNR) MEDICARE (M) PART B Jan 03, 2016 PART B [id number] ABIMAEL ASKEW PATIENT MEDICARE (WNR) MEDICARE (M) PART A May 05, 2014 PART A [id number] ABIMAEL ASKEW PATIENT MEDICARE (WNR) MEDICARE (M) PART A May 05, 2014 PART A [id number] ABIMAEL ASKEW Yong PATIENT Selected Encounter This section includes the information on record at AL for the Encounter. Date/Time Encounter Type Encounter Description Reason Provider Source Oct 12, 2024 10:00 AM VITAL SIGNS RECORDED SPINAL CORD INJURY ICD-10-CM G82.51 Quadriplegia, C1-C4 complete KG CORRALES [place] Encounter Template Text not used by AL Assessments - Encounter Diagnoses This section includes the primary and secondary diagnoses documented for the Encounter. Date/Time Primary/Secondary Diagnosis Diagnosis Name Provider Source Oct 12, 2024 09:25 AM PRIMARY Quadriplegia, C1-C4 complete KG CORRALES [facility] Plan of Treatment: Future Appointments (+ 6 months) and Future Tests (+/- 45 days) The Plan of Treatment section includes future care activities for the patient from all [place] treatmentfacilities. This section includes future appointments and future orders which are active, pending or scheduled. Future Appointments This section includes appointments that were scheduled to occur 6 months from the date of the Encounter, up to a maximum of 20 appointments. The data comes from all AL treatment facilities. Appointment Date/Time Appointment Type Appointme nt Facility Name Oct 19, 2024 02:00 PM AMBULATORY - REHAB MEDICIN E [facility] Nov 01, 2024 10:30 AM AMBULATORY - NONE [facility] Nov 01, 2024 11:00 AM AMBULATORY - SURGERY [facility] November 29, 2024 11:30 AM AMBULATORY - REHAB MEDICIN E [facility] Dec 06, 2024 10:00 AM AMBULATORY - REHAB MEDICIN E [facility] Jan 11, 2025 02:00 PM AMBULATORY - REHAB MEDICIN E [facility] Jan 17, 2025 11:00 AM AMBULATORY - MEDICINE [facility] Feb 07, 2025 11:30 AM AMBULATORY - REHAB MEDICIN E [facility] Feb 13, 2025 01:00 PM AMBULATORY - REHAB MEDICIN E [facility] Apr 10, 2025 01:00 PM AMBULATORY - REHAB MEDICIN E [facility] Active, Pending, and Scheduled Orders This section includes a listing of several types of active, pending, and scheduled orders, including clinic medications orders, diagnostic test orders, procedure orders and consult orders; where the start date of the order is 45 days before the date of the Encounter or 45 days after the date of theEncounter. The data comes from all [place] treatment facilities. Test Date/Time Test Type Test Details Facility Name Oct 12, 2024 12:00 AM Laboratory - Chemi stry Order OCCULT BLOOD FIT X1 SCREEN STOOL FECES SP [facility] Oct 19, 2024 12:00 AM Laboratory - Chemi stry Order BASIC METABOLIC PANEL GREEN LI/HEP BLD/PLAS PLASMA SP [facility] Oct 19, 2024 12:00 AM Laboratory - Chemi stry Order IRON/TIBC PROFILE GOLD/RED SST SERUM SP [facility] Lab Results: +/- 30 days of the encounter This section includes the Chemistry and Hematology Lab Results on record with AL for the patient. Radiology Reports and Pathology Reports are provided separately, in subsequent sections. Lab Results This section contains the Chemistry/Hematology Results that were resulted 30 days before or 30 daysafter the date of the Encounter. Date/Time Source Result Type Result - Unit Interpretation Reference Range Specimen Type Comment Oct 12, 2024 09:43 AM [facility] HGA1C BLOOD Specimen Type: BLOOD No comment entered. Ordering Provider: GINI LAMAR Report Released Date/Time: Aug 25, 2024 07:24 PM Reporting Lab: [facility] [address] [facility] [address] Performing Lab: [facility] [address] [facility] [address] HGA1C 5.8 4.0-6.0 Oct 12, 2024 09:43 AM [facility] FOLATE (STL-MA) SERUM Specimen Type: SERUM No comment entered. Ordering Provider: GINI LAMAR Report Released Date/Time: Aug 25, 2024 07:24 PM Reporting Lab: [facility] [address] [facility] [address] Performing Lab: [facility] [address] [facility] [address] FOLATE (STL-AL) 17.6 ng/mL 7-20 Oct 12, 2024 09:43 AM [facility] B12 SERUM Specimen Type: SERUM No comment entered. Ordering Provider: GINI LAMAR Report Released Date/Time: Aug 25, 2024 07:24 PM Reporting Lab: [facility] [facility] [address] Performing Lab: [facility] [address] [facility] [address] B12 358 pg/mL 213-816 Oct 12, 2024 09:43 AM [facility] LIPID PANEL (STL) PLASMA Specimen Type: PLASM A Comment: No hemolysis noted. Ordering Provider: GINI LAMAR Report Released Date/Time: Aug 25, 2024 07:24 PM Reporting Lab: [facility] [address] [facility] [address] Performing Lab: [facility] [address] [facility] [address] CHOLESTEROL 105 mg/dL 0-200 TRIGLYCERIDE 71 mg/dL 0-150 CALCULATED LDL 63 mg/dL See Interp HDL(New) 28 mg/dL L > 40 Oct 12, 2024 09:43 AM [facility] VITAMIN D, 25-HYDROXY SERUM Specimen Type: SE RUM No comment entered. Ordering Provider: GINI LAMAR Report Released Date/Time: Aug 25, 2024 07:24 PM Reporting Lab: [facility] [address] [facility] [address] Performing Lab: [facility] [address] [facility] [address] VITAMIN D, 25-HYDROXY 35.2 ng/mL 30-96 Oct 12, 2024 09:43 AM [facility] TSH W/ REFLEX FT4 (STL) PLASMA Specimen Type: PLASMA No comment entered. Ordering Provider: GINI LAMAR Report Released Date/Time: Aug 25, 2024 07:24 PM Reporting Lab: [facility] [address] [facility] [address] Performing Lab: [facility] [address] [facility] [address] TSH 4.224 u[IU]/mL 0.470-5.000 Oct 12, 2024 09:43 AM [facility] PREALBUMIN SERUM Specimen Type: SERUM No comment entered. Ordering Provider: GINI LAMAR Report Released Date/Time: Aug 25, 2024 07:24 PM Reporting Lab: [facility] [address] [facility] [address] Performing Lab: [address] [address] PREALBUMIN 15 mg/dL L 16-42 Oct 12, 2024 09:43 AM [facility] CYSTATIN C EGFR PANELS (STL-PB-MA) PLASMA Spec imen Type: PLASMA Comment: Choice of which of the reported eGFR values to use depends on the clinical situation. For example, for patients with severe muscle wasting or reduced muscle mass, eGFR calculated using the 2012 cystatin equation may be preferred. Ordering Provider: GINI LAMAR Report Released Date/Time: Aug 25, 2024 07:24 PM Reporting Lab: [facility] [address] [facility] [address] Performing Lab: [address] [address] CYSTATIN C 1.70 mg/L 0.57-1.80 CKD-EPI CYSTATIN C (2011) 36.2 >60 CKD-EPI CREAT-CYSC (2020) 54.4 >60 CREATININE (L) 0.95 mg/dL 0.7-1.3 Oct 12, 2024 09:43 AM [facility] COMPREHENSIVE METABOLIC PANEL PLASMA Specimen Type: PLASMA Comment: No hemolysis noted. Ordering Provider: GINI LAMAR Report Released Date/Time: Aug 25, 2024 07:24 PM Reporting Lab: [facility] [address] [facility] [address] Performing Lab: [facility] [address] [facility] [address] CREATININE 0.95 mg/dL 0.70-1.30 UREA NITROGEN 21.3 [...] 83.47 >60 Oct 12, 2024 09:43 AM [facility] CBC BLOOD Specimen Type: BLOOD No comment entered. Ordering Provider: GINI LAMAR Report Released Date/Time: Aug 25, 2024 07:24 PM Reporting Lab: [facility] [address] [facility] [address] Performing Lab: [facility] [address] [facility] [address] WBC 5.9 10*3/uL 3.6-11.2 RBC 3.78 10*6/uL [...] 76 121/63 15 94 7 173 22 [facility] Social History: Smoking Status (Most current) and Tobacco Use (All prior to encounter date) This section includes the most current, and the historical, smoking and tobacco- related health factors from the AL facility where the Encounter took place. Current Smoking Status This section includes the most current smoking, or tobacco-related health factor, from the AL facility where the Encounter took place. Date/Time Current Smoking Status Comment Chip pablo Oct 12, 2024 10:00 AM VA-TOBACCO NEVER U SED CIGARETTES [facility] Tobacco Use History This section includes a history of the smoking, or tobacco-related health factors, that were collected on or before the date of the Encounter. The data comes from the AL facility where the Encounter took place. Date/Time Smoking Status/Tobacco Use Comment F acavi Oct 12, 2024 10:00 AM VA-TOBACCO NEVER U SED OTHER TYPE [facility] Sep 27, 2023 01:00 PM VA-TOBACCO NEVER USED [facility] Oct 15, 2022 08:00 AM VA-TOBACCO NEVER USED [facility] Oct 16, 2021 08:00 AM VA-TOBACCO FORMER USER [facility] Oct 16, 2021 08:00 AM VA-TOBACCO QUIT 15 YRS OR MORE [facility] Oct 10, 2020 08:00 AM VA-TOBACCO FORMER USER [facility] Oct 10, 2020 08:00 AM VA-TOBACCO QUIT 15 YRS OR MORE [facility] Oct 18, 2019 01:49 PM VA-TOBACCO FORMER USER [facility] Oct 18, 2019 01:49 PM VA-TOBACCO QUIT 15 YRS OR MORE [facility] Oct 18, 2019 01:49 PM VA-TOBACCO QUIT 5 TO < 15 YRS [facility] Oct 04, 2018 08:04 AM VA-TOBACCO FORMER USER [facility] Oct 04, 2018 08:04 AM VA-TOBACCO QUIT 15 YRS OR MORE [facility] Apr 06, 2011 03:10 PM QUIT TOBACCO >7 YEARS AGO [facility] Feb 02, 2011 03:20 PM LIFETIME NON-USER OF TOBACCO [facility] Aug 02, 2006 03:10 PM QUIT TOBACCO >7 YEARS AGO [facility] Apr 11, 2006 02:21 PM CURRENT NON-TOBACC O USER-HX OF USE [facility] Apr 11, 2006 02:21 PM TOBACCO TERMINATION STAGE [facility] Advance Directives: All historical and current Section Date Range: From patient's date of to the date document was created. This section includes ALL of a patient's completed or amended [place] Advance and Rescinded Directives. The entries below indicate that a directive exists for the patient, but an actual copy is not included with this document. The data comes from all AL facilities. Date Advance Directives Provider Source Oct 12, 2024 ADVANCE DIRECTIVE RAHEEL MINER [facility] Oct 10, 2020 ADVANCE DIRECTIVE BARBY ALMAZAN [facility] Oct 10, 2020 RESCINDED ADVANCE DIRECTIVE BARBY ALMAZAN [facility] Oct 13, 2014 ADVANCE DIRECTIVE STEFANIE MENCHACA [facility] Apr 28, 2012 ADVANCE DIRECTIVE DISCUSSION DOMINGA CHILDS [facility] Apr 08, 2006 ADVANCE DIRECTIVE PACHECO TOBIAS [facility] Radiology Reports: +/- 30 days of [...] the Encounter. The data comes from all [place] treatment facilities. Date/Time Radiology Report Provider Source Nov 01, 2024 10:16 AM US ABDOMEN AORTA ( AAA), LIMITED: JEROME ASKEW [id number] -1950 M Exm Date: NOV 01, 2024@10:16 Req Phys: Pat Loc: [facility]SC[facility] ANNUAL EVAL PROCESS LINE OPERATOR (Req'g L Img Loc: [facility]-ULTRASOUND Service: Unknown [facility], [address] [place] [address] (Case [id number] COMPLETE) US ABDOMEN AORTA (AAA), LIMITED (US Detailed) CPT:92708 Reason for Study: Screening for AAA Clinical History: Screen for abdominal aortic aneurysm in known male smoker. Report Status: Verified Date Reported: NOV 01, 2024 Date Verified: NOV 01, 2024 Tablet Repair E-Sig:/ES/PACHECO MARTIN Report: Case #[id number] EXAM: Abdominal aortic ultrasound HISTORY:Screening for AAA [...] findings. Primary Interpreting Staff: PACHECO MARTIN MD (Tablet Repair) Primary Interpreting Resident: CELINA GRAHAM, Vascular & Interventional Line Repairer /PACHECO LI [facility] Oct 12, 2024 07:30 AM US LIMITED & RENAL COMP-P (SCI): JEROME ASKEW [id number] -1950 Exm Date: OCT 12, 2024@07:30 Req Phys: LAMAR Pat Loc: [facility] ANNUAL EVAL PROCESS LINE OPERATOR (Req'g L Img Loc: [facility]-ULTRASOUND Service: Unknown [facility], [address] [place] [address] (Case [id number] COMPLETE) US ABDOMEN LTD, SINGLE ORG OR SARY(US Detailed) CPT:01507 Reason for Study: sci annual (Case [id number] COMPLETE) US RENAL COMPLETE (US Detailed) CPT:00324 Clinical History: Report Status: Verified Date Reported: OCT 12, 2024 Date Verified: OCT 12, 2024 Tablet Repair E-Sig:/ES/PACHECO MARTIN Report: Case #: [id number], [id number] Exam: Renal and gallbladder ultrasound Comparison: 10/14/2023. [...] findings. Primary Interpreting Staff: PACHECO MARTIN MD (Tablet Repair) Primary Interpreting Resident: CELINA GRAHAM, Vascular & Interventional Line Repairer /PACHECO LI [facility] Encounter Notes: All associated encounter notes This section contains the clinical notes associated to the Encounter. Date/Time Encounter Note(s) Provider Source Oct 12, 2024 09:29 AM [facility] NOTE: LOCAL TITLE: PERSONAL HEALTH INVENTORY NOTE STANDARD TITLE: [facility] NOTE DATE OF NOTE: OCT 12, 2024@09:29 ENTRY DATE: OCT 12, 2024@09:30:21 AUTHOR: KG CORRALES COSIGNER: URGENCY: STATUS: COMPLETED Personal Health Inventory Self-Reflection Scales (Patient rating from 1-5, with 1 being not so good and 5 being great.) --- Physical Well-Being: Severy's Response: 2 What made you choose this number? What does this number mean to you? What might a slightly higher number look like or feel like? What kinds of things would you be doing? Mental/Emotional Well-Being: Severy's Response: 5 What made you choose this number? What does this number mean to you? What might a slightly higher number look like or feel like? What kinds of things would you be doing? Life: How is it to live your day-to-day life? Severy's Response: 3 What made you choose this number? What does this number mean to you? What might a slightly higher number look like or feel like? What kinds of things would you be doing? Where Are You and Where You'd Like To Be (Patient rating from 1-5, with 1=low and 5=high that best represents where patient is and where patient wants to be.) --- Reflections --- /james/ Kg HANNA, RN Registered Nurse Signed: 10/12/2024 09:30 KG CORRALES [facility] Oct 12, 2024 09:04 AM SPINAL CORD INJURY OUTPATIENT NOTE: LOCAL TITLE: SCI CLINIC VISIT [facility] STANDARD TITLE: SPINAL CORD INJURY OUTPATIENT NOTE DATE OF NOTE: OCT 12, 2024@09:04 ENTRY DATE: OCT 12, 2024@09:04:35 AUTHOR: KG CORRALES EXP COSIGNER: URGENCY: STATUS: COMPLETED SCI CLINIC NURSING NOTE REASON FOR VISIT INITIAL VISIT ( ) FOLLOW UP VISIT ( ) ANNUAL EVAL ( x ) OTHER: VITAL SIGNS T: 98.3 P: 76 R: 18 BP: 121/63 O2 Sat: 94% WT: 173 lbs PAIN: YES:{ x } NO CURRENT PAIN:{ } PAIN SCALE # (7/10 ) LOCATION: back. right shoulder DESCRIPTION: CONSTANT( x ) INTERMITTENT( ) SHARP( ) DULL( ) ACHING( x ) BURNING( ) SHOOTING( ) CRAMPING( ) PIERCING( ) THROBBING( ) STINGING( ) SORENESS(x ) TENDERNESS( ) TINGLING( ) PRESSURE( ) TIGHTNESS( ) HEAVINESS( ) STABBING( ) NUMBNESS( ) PINCHING( ) PAIN COMMENTS:has a pain pump - 40% relief ALERT & ORIENTED X 3. { x } X 2 { } X 1 ( ) MOTOR: GENERAL WEAKNESS ( ) LEFT SIDED WEAKNESS ( ) RIGHT SIDED WEAKNESS ( ) MULTIPLE SCLEROSIS: ( ) PARA: INCOMPLETE ( ) COMPLETE ( ) QUAD: INCOMPLETE ( x ) COMPLETE ( ) COMMENTS: SKIN: WNL { no open wounds } PRESSURE SORE ( ) BURN ( ) SURGICAL INCISION ( ) HEALED ( ) NOT HEALED( ) COMMENTS: bruises on hands and fore arms APPEARANCE: NEAT { x } APPROPRIATE { } UNKEPT { } COMMENTS: RESPIRATORY: NORMAL RESPIRATION { x} CLEAR BREATH SOUNDS { } UNLABORED {x } LABORED { } COUGH { } COMMENTS: 1+ swelling in bialt LE GASTROINTESTINAL: NORMAL BOWEL FUNCTION ( ) DIGITAL [id number] { } SUPPOSITORY { x } LAXATIVES { x } ENEMA { } ABDOMEN SOFT/NON-TENDER { } ABDOMEN DISTENDED { } NO ESTABLISHED BOWEL PROGRAM { } LAST BM: today reports COMMENTS: GENITOURINARY: VOIDS { } EXTERNAL CATHETER { } URINAL { } INTERMITTENT CATHS.( )- EVERY { } HOURS INDWELLING PERRY { } SUPRAPUBIC CATHER { x } DATE LAST CHANGED { } ILEO { } COMMENTS: D/C from hospital yesterday continues antibiotic and pyridium for UTI NUTRITION: REGULAR DIET { x } OTHER { } DIABETIC { } INSULIN DEPENDENT { } NON-INSULIN DEPENDENT { x } RECENT WEIGHT LOSS { } GAIN { } COMMENTS: reports does not eat bread or biscuits and gravy anymore has been trying to lose weight MOBILITY: MANUAL W/C { } ELECTRIC W/C {x } SCOOTER { } GURNEY { } AMBULATES ( ) WALKER { } CANE { } CRUTCHES { } OTHER { } COMMENTS:denies any falls over the last year SMOKE: LIFETIME NON-SMOKER: { } CURRENT SMOKER: { } FORMER SMOKER-NOW QUIT: { quit 50 years ago smoked less than one ppd } AMOUNT { } DURATION { } DATE STOPPED SMOKING { } COMMENTS: ALCOHOL/DRUG USE: NO: { x } YES: { } SUBSTANCE { } AMOUNT { } DURATION { } DATE STOPPED USING { } COMMENTS: no other drugs endorsed Suicide Screen - V: C-SSRS Screening [place] Suicide Severity Rating Scale (C-SSRS) screener 1. Over the past month, have you wished you were or wished you could go to sleep and not wake up? No 2. Over the past month, have you had any actual thoughts of killing yourself? No 3. Over the past month, have you been thinking about how you might do this? Response not required due to responses to other questions. 4. Over the past month, have you had these thoughts and had some intention of acting on them? Response not required due to responses to other questions. 5. Over the past month, have you started to work out or worked out the details of how to kill yourself? Response not required due to responses to other questions. 6. If yes, at any time in the past month did you intend to carry out this plan? Response not required due to responses to other questions. 7. In your lifetime, have you ever done anything, started to do anything, or prepared to do anything to end your life (for example, collected pills, obtained a gun, gave away valuables, went to the roof but didn't jump)? No 8. If YES, was this within the past 3 months? Response not required due to responses to other questions. Sexual Orientation - CP,L,N,P,PH,PS,S,U: The patient thinks of their sexual orientation as: Straight or Heterosexual Alcohol Use Screen (AUDIT-C) - V: Alcohol Screen: SCREEN FOR ALCOHOL (AUDIT-C) An alcohol screening test (AUDIT-C) was negative (score=0). 1. How often did you have a drink containing alcohol in the past year? Consider a drink to be a 12 ounce can or bottle of regular beer, 8 ounces of malt liquor, a 5 ounce glass of table wine, or a 1.5 ounce shot of liquor (like scotch, gin, or vodka). Never 2. How many drinks containing alcohol did you have on a typical day when you were drinking in the past year? Response not required due to responses to other questions. 3. How often did you have six or more drinks on one occasion in the past year? Response not required due to responses to other questions. Tobacco Use Screening - AT,DE,L,M,N,P,PH,PS,RT,S,U : The patient has never smoked cigarettes. The patient has never used other types of tobacco. Homelessness/Food Insecurity Screen - DI,L,N,P,PH,PS,S,U: In the past 2 months, have you been living in stable housing that you own, rent, or stay in as part of a household? Yes - Living in stable housing. Are you worried or concerned that in the next 2 months you may NOT have stable housing that you own, rent, or stay in as part of a household? No - Not worried about housing near future The reports the following: Within the past 12 months, you worried whether your food would run out before you got money to buy more. Never true Within the past 12 months, the food you bought just didn't last and you didn't have money to get more. Never true /james/ Kg HANNA, RN Registered Nurse Signed: 10/12/2024 09:25 KG CORRALES [facility]
--- OUTSIDE RECORDS SUMMARY | 2025-02-15 16:34 | XMS_ITS | Encounter Summary ---
Author Name [facility] [place] Organization [facility] [place] Address [address] [place] [address] Care Team Providers Care Running Instructor Name Role Phone October Primary Care Provider [...] AID (WNR) Feb 02, 2015 MEDICAI D [id number] ABIMAEL ASKEW PATIENT MEDICARE (WNR) MEDICARE (M) PART B Jan 03, 2016 PART B [id number] [id number] ABIMAEL ASKEW PATIENT MEDICARE (WNR) MEDICARE (M) PART B Jan 03, 2016 PART B [id number] ABIMAEL ASKEW PATIENT MEDICARE (WNR) MEDICARE (M) PART A May 05, 2014 PART A [id number] [id number] ABIMAEL ASKEW PATIENT MEDICARE (WNR) MEDICARE (M) PART A May 05, 2014 PART A [id number] ABIMAEL ASKEW PATIENT Selected Encounter This section includes the information on record at [place] for the Encounter. Date/Time Encounter Type Encounter Description Reason Provider Source Mar 31, 2024 10:30 AM OFFICE O/P EST MOD 30 MIN SPINAL CORD INJURY ICD-10-CM G82.51 Quadriplegia, C1-C4 complete JEROMEBENITEZ Belen Encounter Template Text not used by [place] Assessments - Encounter Diagnoses This section includes the primary and secondary diagnoses documented for the Encounter. Date/Time Primary/Secondary Diagnosis Diagnosis Name Provider Source Mar 31, 2024 11:20 AM PRIMARY Quadriplegia, C1-C4 complete BENITEZ CORREIA [facility] Mar 31, 2024 11:20 AM SECONDARY Encounter for immunization BENITEZ CORREIA [facility] Mar 31, 2024 11:20 AM SECONDARY Other muscle spasm BENITEZ CORREIA [facility] Plan of Treatment: Future Appointments (+ 6 months) and Future Tests (+/- 45 days) The Plan of Treatment section includes future care activities for the patient from all [facility]. This section includes future appointments and future [...] 01:30 PM AMBULATORY - REHAB MEDICIN E [facility] May 31, 2024 09:00 AM AMBULATORY - SURGERY [facility] May 31, 2024 02:00 PM AMBULATORY - REHAB MEDICIN E [facility] Jul 07, 2024 09:00 AM AMBULATORY - MEDICINE [facility] Aug 02, 2024 11:00 AM AMBULATORY - REHAB MEDICIN E [facility] Aug 23, 2024 02:30 PM AMBULATORY - REHAB MEDICIN E [facility] Aug 30, 2024 01:00 PM AMBULATORY - MEDICINE [facility] Immunizations: All administered on the encounter date This section contains immunizations associated to the Encounter. Immunization Series Date Issued Administered By Site Reaction Lot Number CVX Code Drug Irrigation Manager Comment(s) Source COVID-19 (PFIZER), MRNA, LNP-S, PF, LEXI-SUCROSE, 30 MCG/0.3 ML (AGES 12+ YEARS) Mar 31, 2024 BENITEZ CORREIA LEFT DELTO ID [id number] [employer] ADMINISTERE D AT [facility] INFLUENZA, HIGH-DOSE, TRIVALENT, PF Mar 31, 2024 BENITEZ CORREIA RIGHT DELTO ID [id number] A 135 [employer] PA[employer] ADMINISTERE D AT [facility] Social History: Smoking Status [...] Chip pablo Sep 27, 2023 01:00 [facility] Tobacco Use History This section includes a history of the smoking, or tobacco-related health factors, that were collected on or before the date of the Encounter. The data comes from the [place] facility where the Encounter took place. Date/Time Smoking Status/Tobacco Use Comment F acility Oct 15, 2022 08:00 AM VA-TOBACCO NEVER USED [facility] Oct 16, 2021 08:00 AM VA-TOBACCO FORMER USER [facility] Oct 16, 2021 08:00 AM VA-TOBACCO QUIT 15 YRS OR MORE [facility] Oct 10, 2020 08:00 AM VA-TOBACCO FORMER USER [facility] Oct 10, 2020 08:00 AM VA-TOBACCO QUIT 15 YRS OR MORE [facility] Oct 18, 2019 01:49 PM VA-TOBACCO FORMER USER [facility] Oct 18, 2019 01:49 PM VA-TOBACCO QUIT 15 YRS OR MORE [facility] Oct 18, 2019 01:49 PM VA-TOBACCO QUIT 5 TO < 15 YRS [facility] Oct 04, 2018 08:04 AM VA-TOBACCO FORMER USER [facility] Oct 04, 2018 08:04 AM VA-TOBACCO QUIT 15 YRS OR MORE [facility] Apr 06, 2011 03:10 PM QUIT TOBACCO >7 YEARS AGO [facility] Feb 02, 2011 03:20 PM LIFETIME NON-USER OF TOBACCO [facility] Aug 02, 2006 03:10 PM QUIT TOBACCO >7 YEARS AGO [facility] Apr 11, 2006 02:21 PM CURRENT NON-TOBACC O USER-HX OF USE [facility] Apr 11, 2006 02:21 PM TOBACCO TERMINATION STAGE [facility] Advance Directives: All historical and current [...] Oct 12, 2024 ADVANCE DIRECTIVE RAHEEL MINER [facility] Oct 10, 2020 ADVANCE DIRECTIVE BARBY ALMAZAN [facility] Oct 10, 2020 RESCINDED ADVANCE DIRECTIVE BARBY ALMAZAN [facility] Oct 13, 2014 ADVANCE DIRECTIVE STEFANIE MENCHACA [facility] Apr 28, 2012 ADVANCE DIRECTIVE DISCUSSION DOMINGA CHILDS [facility] Apr 08, 2006 ADVANCE DIRECTIVE PACHECO [facility] Encounter Notes: All associated encounter notes This section contains the clinical notes associated to the Encounter. Date/Time Encounter Note(s) Provider Source Mar 31, 2024 11:12 AM SPINAL CORD INJURY PROCEDURE NOTE: LOCAL TITLE: SCI INTRATHECAL BACLOFEN PUMP PROCEDURE STL STANDARD TITLE: SPINAL CORD INJURY PROCEDURE NOTE DATE OF NOTE: MAR 31, 2024@11:12 ENTRY DATE: MAR 31, 2024@11:13:13 AUTHOR: BENITEZ CORREIA EXP COSIGNER: URGENCY: STATUS: COMPLETED SCI INTRATHECAL BACLOFEN PUMP PROCEDURE STL Has ADDENDA Procedure: Intrathecal Baclofen Pump Refill Diagnosis: Tetraparesis Indication: spasticity Performed by: Benitez Correia RN Procedure: The intrathecal pump was interrogated and found to have 6.2 mL reservoir volume. The skin overlying the reservoir was cleansed with Iodine and draped in sterile fashion. The reservoir site was accessed with a 22G needle after 1 attempts. Approximately 9 cc of clear fluid was removed and discarded. The reservoir was refilled with 40 cc of Lioresal at 2,000 mcg/mL. The syringe plunger was pulled back to confirm clear fluid return x2 during the refill procedure. Lot#: [id number] Exp: 2025-05-04 The CURRENT dose programming is as follows: FLEX mode Dose pattern: Basal rate: 44.1 mcg/hr Step 1: Start Time Duration Dose Rate 19:00 3:00 h:m 150.1 mcg 50.0 mcg/hr Daily Dose: 1076.6 mcg/day Estimated MELIDA: < 3 months Argenta volume: 40 mL Low Argenta Alarm volume: 2.0mL Low reservoir alarm date: 06/09/2024 ASSESSMENT AND PLAN: The following plan of care was developed through shared decision making in discussion with the , and is agreeable to plan of care. #Spasticity -s/p intrathecal baclofen pump refill -New alarm date:06/09/2024 -Return to clinic date will be determined after new pump is placed /james/ BENITEZ CORREIA REGISTERED NURSE Signed: 03/31/2024 11:20 03/31/2024 ADDENDUM STATUS: COMPLETED Influenza Immunization: Influenza, High-Dose, Trivalent, Preservative Free (Fluzone-Syringe) Administered: INFLUENZA, HIGH-DOSE, TRIVALENT, PF Date Administered: Mar 31, 2024 10:30 Irrigation Manager: [employer] PA[employer] Lot: [id number] Exp Date: Jan 01, 2025 [facility]: [id number] Admin Route/Site: INTRAMUSCULAR/RIGHT DELTOID Dosage: 0.5mL Vaccine Information Statement(s): INFLUENZA(FLU) VACC(INACTIVATED OR RECOMBINANT)VIS Feb 07, 2021 (SERBIAN) Order By: Policy Administered By: Benitez Correia The Influenza Vaccine Information Statement (VIS) was reviewed with the patient/caregiver which lists the benefits and risks of the vaccine and the risks of not receiving the Influenza vaccine. The patient/caregiver denied any prior severe reaction to this vaccine or its components or a severe allergic reaction, such as anaphylaxis, to any vaccine or any injectable therapy. The patient/caregiver gave verbal consent to receive the vaccine. COVID-19 Immunization: Pfizer Monovalent (Comirnaty) Administered: COVID-19 (PFIZER), MRNA, LNP-S, PF, LEXI-SUCROSE, 30 MCG/0.3 ML (AGES 12+ YEARS) Date Administered: Mar 31, 2024 10:30 Irrigation Manager: [employer] Lot: [id number] Exp Date: Oct 05, 2024 [facility]: [id number] Admin Route/Site: INTRAMUSCULAR/LEFT DELTOID Dosage: 0.3mL Vaccine Information Statement(s): COVID-19 MRNA VACCINE (12+ YRS) VACCINE VIS Apr 22, 2023 (SERBIAN) Order By: Policy Administered By: Benitez Correia Vaccine administered without complications. /james/ BENITEZ CORREIA REGISTERED NURSE Signed: 03/31/2024 11:27 BENITEZ CORREIA [facility]
--- OUTSIDE RECORDS SUMMARY | 2025-02-15 16:34 | XMS_ITS | Encounter Summary ---
Author Name [facility] of [facility] [place] Organization [facility] [place] Address [address] [place] [address] Care Team Providers Care Senior Media Planner Name Role Phone October Primary Care [...] AID (WNR) Feb 02, 2015 MEDICAI D [id number] ABIMAEL ASKEW PATIENT MEDICARE (WNR) MEDICARE (M) PART B Jan 03, 2016 PART B [id number] ABIMAEL ASKEW PATIENT MEDICARE (WNR) MEDICARE (M) PART B Jan 03, 2016 PART B [id number] ABIMAEL ASKEW PATIENT MEDICARE (WNR) MEDICARE (M) PART A May 05, 2014 PART A [id number] ABIMAEL ASKEW PATIENT MEDICARE (WNR) MEDICARE (M) PART A May 05, 2014 PART A [id number] ABIMAEL ASKEW PATIENT Selected Encounter This section includes the information on record at [place] for the Encounter. Date/Time Encounter Type Encounter Description Reason Provider Source Jul 19, 2024 12:41 PM Outpatient Encounter [facility]AL [facility]NAL MEDICINE HANNA CAMPOS [facility] Encounter Template Text not used by [place] Plan of Treatment: Future Appointments (+ 6 months) and Future Tests (+/- 45 days) The Plan of Treatment section includes future care activities for the patient from all [place] treatmentfacilities. This section includes future appointments and future orders which are active, pending or scheduled. Future Appointments This section includes appointments that were scheduled to occur 6 months from the date of the Encounter, up to a maximum of 20 appointments. The data comes from all [place] treatment facilities. Appointment Date/Time Appointment Type Appointme nt Facility Name Aug 02, 2024 11:00 AM AMBULATORY - RE[facility] Aug 23, 2024 02:30 PM AMBULATORY - REHAB MEDICIN [facility] Aug 30, 2024 01:00 PM AMBULATORY - MEDICINE [facility] Oct 03, 2024 01:00 PM AMBULATORY - REHAB MEDICIN E [facility] Oct 12, 2024 08:00 AM AMBULATORY - REHAB MEDICIN [facility] Oct 12, 2024 08:30 AM AMBULATORY - NONE [facility] Oct 12, 2024 09:00 AM AMBULATORY - REHAB MEDICIN E [facility] Oct 12, 2024 10:00 AM AMBULATORY - REHAB MEDICIN E [facility] Oct 12, 2024 10:30 AM AMBULATORY - REHAB MEDICIN E [facility] Oct 12, 2024 11:00 AM AMBULATORY - REHAB MEDICIN [facility] Oct 12, 2024 11:30 AM AMBULATORY - REHAB MEDICIN E [facility] Oct 12, 2024 12:00 PM AMBULATORY - REHAB MEDICIN E [facility] Oct 12, 2024 12:30 PM AMBULATORY - REHAB MEDICIN E [facility] Oct 12, 2024 01:30 PM AMBULATORY - REHAB MEDICIN E [facility] Oct 19, 2024 02:00 PM AMBULATORY - REHAB MEDICIN E [facility] Nov 01, 2024 10:30 AM AMBULATORY - NONE Gwendolyn Beach [facility] Nov 01, 2024 11:00 AM AMBULATORY - SURGERY . Dora GARNER [facility] November 29, 2024 11:30 AM AMBULATORY - REHAB MEDICIN E [facility] Dec 06, 2024 10:00 AM AMBULATORY - REHAB MEDICIN E [facility] Jan 11, 2025 02:00 PM AMBULATORY - REHAB MEDICIN E [facility] Social History: Smoking Status (Most current) and Tobacco Use (All prior to encounter date) This section includes the most current, and the historical, smoking and tobacco- related health factors from the [place] facility where the Encounter took place. Current Smoking Status This section includes the most current smoking, or tobacco-related health factor, from the [place] facility where the Encounter took place. Date/Time Current Smoking Status Comment Chip pablo Oct 09, 2017 03:41 AM CURRENT TOBACCO USER [facility] Tobacco Use History This section includes a history of the smoking, or tobacco-related health factors, that were collected on or before the date of the Encounter. The data comes from the [place] facility where the Encounter took place. Date/Time [...] ALL of a patient's completed or amended [place] Advance and Rescinded Directives. The entries below indicate that a directive exists for the patient, but an actual copy is not included with this document. The data comes from all [place] facilities. Date Advance Directives Provider Source Oct 12, 2024 ADVANCE DIRECTIVE RAHEEL MINER [facility] Oct 10, 2020 ADVANCE DIRECTIVE BARBY ALMAZAN [facility] Oct 10, 2020 RESCINDED ADVANCE DIRECTIVE BARBY ALMAZAN [facility] Oct 13, 2014 ADVANCE DIRECTIVE STEFANIE MENCHACA [facility] Apr 28, 2012 ADVANCE DIRECTIVE DISCUSSION DOMINGA CHILDS [facility] Apr 08, 2006 ADVANCE DIRECTIVE PACHECO [facility] Encounter Notes: All associated encounter notes This section contains the clinical notes associated to the Encounter. Date/Time Encounter Note(s) Provider Source Jul 05, 2024 12:41 PM NONVA NOTE: LOCAL TITLE: [facility] CARE COORD PLAN STANDARD TITLE: NONVA NOTE DATE OF NOTE: JUL 05, 2024@12:41 ENTRY DATE: JUL 19, 2024@12:41:49 AUTHOR: CHELSEA CAMPOS COSIGNER: URGENCY: STATUS: COMPLETED Emergency Notification Intake Date Presenting to the Facility: Jul Method of Contact: Submitted to Centralized Call Center Notification ID: [id number] [facility] Referral #: [id number] Clinical Review Community [facility] Name: Hospital: [facility] Address: City: [place] State: [place] Zip Code: Phone : Community Facility Point of Contact: Name: Phone: Chief complaint: altered mental status Primary Diagnosis: Disposition Discharged Date of discharge: Jul Discharge to [facility] [place] records sent securely to [place] PCP and RNCM. Records sent to [facility] for expedited upload. [facility] alerted via [employer] for eligibility review. No further records available. Alerting PCP team to this note for continuity of care. /james/ CHELSEA HANNA RN REGISTERED NURSE Signed: 07/19/2024 12:46 Receipt Acknowledged By: 07/20/2024 08:07 /james/ ISAI CANO REGISTERED NURSE 07/19/2024 14:54 /james/ GINI LAMAR RN, ANP- ADULT NURSE PRACTITIONER CHELSEA CAMPOS [facility]
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
[2025-02-15 17:43] VITALS: BP 119/53; PULSE 66; RESP 16; O2SAT 99
[2025-02-15 18:12] LABS: Add Urine Microscopic? YES; Appearance Urine Cloudy (Clear); Glucose Urine UA Negative (Negative); Leukocyte Esterase Ur 3+ LEU/UL (Negative); Need Manual Microscopic Reviewed; Nitrate Urine Negative (Negative); Specific Grav Ur 1.015 (1.001-1.035)
[2025-02-15 18:13] LABS: Non Pathogenic Casts Present
--- NOTE | 2025-02-15 18:13 | PC.NURSE ---
Went in to administer medication, pt requests to wait until urine results are back.
[2025-02-15] MEDS: ACETAMINOPHEN 500 MG TABLET 1000 MG PO (18:33)
[2025-02-15] MEDS: DOXYCYCLINE HYCLATE 100 MG TABLET PO (18:33)
[2025-02-15 18:58] VITALS: BP 123/59; PULSE 65; RESP 20; O2SAT 97
--- NOTE | 2025-02-15 18:58 | PC.NURSE ---
Attempted to call report back to [facility] with no answer.
--- NOTE | 2025-02-15 19:01 | PC.NURSE ---
was able to reach [facility] for report given to Jess
--- NOTE | 2025-02-15 20:00 | PC.NURSE ---
300 mL output via suprapubic catheter.
--- NOTE | 2025-02-15 20:00 | PC.NURSE ---
This RN attempted to call [facility] to give update on pt arrival ETA w no answer.
== END 2025-02-15 20:03 ==
PROVIDERS: Emergency Provider Student in an Organized Health Care Education/Training Program
DX: T83.510A Infection and inflammatory reaction due to cystostomy catheter, initial encounter (principal); G82.54 Quadriplegia, C5-C7 incomplete; S14.105S Unspecified injury at C5 level of cervical spinal cord, sequela; I69.998 Other sequelae following unspecified cerebrovascular disease; H53.8 Other visual disturbances; I10 Essential (primary) hypertension; K59.2 Neurogenic bowel, not elsewhere classified; N31.9 Neuromuscular dysfunction of bladder, unspecified; G93.41 Metabolic encephalopathy; K21.9 Gastro-esophageal reflux disease without esophagitis; F32.A Depression, unspecified; Z86.2 Personal history of diseases of the blood and blood-forming organs and certain disorders involving the immune mechanism; Z86.16 Personal history of COVID-19; Z87.891 Personal history of nicotine dependence; Z86.718 Personal history of other venous thrombosis and embolism; Z79.899 Other long term (current) drug therapy; V29.99XS Rider (driver) (passenger) of other motorcycle injured in unspecified traffic accident, sequela; Y84.6 Urinary catheterization as the cause of abnormal reaction of the patient, or of later complication, without mention of misadventure at the time of the procedure
CPT/HCPCS: 81001; 99283; A9270

== ENCOUNTER 2025-04-14 10:38 | Emergency (ER) | payer MEDICARE, MEDICAID, OTHER, SELFPAY ==
--- OUTSIDE RECORDS SUMMARY | 2025-04-14 10:39 | XMS_ITS | Encounter Summary ---
Author Organization [facility] Address 

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
--- OUTSIDE RECORDS SUMMARY | 2025-04-14 10:39 | XMS_ITS | Encounter Summary ---
Author Organization [facility] Address [address] [place] [address] Care Team Providers Care Fuselage Framer Name Role Phone Unavailable Primary Care Provider Unavailabl e Encounter Details Date Type Department Care Team (Late st Contact Info) Description 01/13/2006 Outpatient Historical [facility] [place], [place] Support Serv. (Adt Cardiology-[facility]) [address] 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
--- OUTSIDE RECORDS SUMMARY | 2025-04-14 10:39 | XMS_ITS | Encounter Summary ---
Author Organization [facility] Address [address] [facility] [place] [address] Care Team Providers Care Manager Process Improvement Name Role Phone Rod Strauss MD Primary Care Provider + [phone] Encounter Details Date Type Department Care Team (Late st Contact Info) Description 03/13/2025 Lab Requisition [facility] [address] [place] [address] Unknown, Provider Social History Tobacco Use Types Packs/Day Years Used Date Smoking Tobacco: Never Smokeless Tobacco: Never Alcohol Use Standard Drinks/Week Comments No 0 [...] declined 05/31/2024 [facility] - Occupational Stress [...] any time in the past 12 m [facility], were you homeless or living in a [facility] (including now)? Patient declined 05/31/2024 Sex and Gender Information Value Date Recorded Sex Assigned at Not on file Legal Sex Male 5:23 PM FOOD PACKER Gender Identity Not on file Sexual Orientation Not on file documented as of this encounter Functional Status * Is person deaf or have serious hearing difficulty? Answer Date of Assessment Author Yes 06/01/2024 12:21 PM FOOD PACKER Princess Ohara RN * Is person blind or have serious difficulty seeing? Answer Date of Assessment Author No 06/01/2024 12:21 PM FOOD PACKER Princess Ohara RN * Does person have serious difficulty walking/climbing stairs? Answer Date of Assessment Author Yes 06/01/2024 12:21 PM FOOD PACKER Princess Ohara RN * Does person have difficulty dressing/bathing? Answer Date of Assessment Author Yes 06/01/2024 12:21 PM FOOD PACKER Princess Ohara RN * Does person have difficulty doing errands alone? Answer Date of Assessment Author Yes 06/01/2024 12:21 PM FOOD PACKER Princess Ohara RN documented as of this encounter Mental Status * Does person have difficulty concentrating/remembering/making decisions? Answer Entry Date Author No 06/01/2024 12:21 PM FOOD PACKER Princess Ohara RN documented in this encounter Plan of Treatment Upcoming Encounters Date Type Department Care Team (Late st Contact Info) Description 05/14/2025 9:00 AM FOOD PACKER Office Visit [facility] - Urology [address] [facility] [place] [address] Rustam Bernabe PA [address] [place] [address] documented as of this encounter Procedures Procedure Name Priority Date/Time Associated Diagnosis Comments DIFFERENTIAL MANUAL STAT 03/13/2025 4 :40 PM CDT CBC W AUTO DIFFERENTIAL STAT 03/13/2025 4:40 PM CDT COMPREHENSIVE METABOLIC PANEL STAT 03/13/2025 4:40 PM CDT documented in this encounter Results * (ABNORMAL) DIFFERENTIAL MANUAL (03/13/2025 4:40 PM CDT) Neutrophil % 92(H) 41 - 74 % 03/13/2025 6:26 PM CDT [facility] Lymphocyte % 1(L) 17 - 47 % 03/13/2025 6:26 PM CDT [facility] Monocyte % 7 3 - 11 % 03/13/2025 6:26 PM CDT [facility] Neutrophil Absolute 14.08(H) 1.60 - 7.50 x10E9/L 03/13/2025 6:26 PM CDT [facility] Lymphocyte Absolute 0.15(L) 1.00 - 4.40 x10E9/L 03/13/2025 6:26 PM CDT [facility] Monocyte Absolute 1.07(H) 0.15 - 1.00 x10E9/L 03/13/2025 6:26 PM CDT [facility] RBC Morphology NORMAL 03/13/2025 6:26 PM CDT [facility] Blood BLOOD SPECIMEN / Unknown 03/13/2025 4:40 PM CDT 03/13/2025 5:42 PM CDT us Provider Unknown LAB - HEMATOLOGY ORDERABLES Fin al Result [facility] [address] [place] [address] * (ABNORMAL) COMPREHENSIVE METABOLIC PANEL (03/13/2025 4:40 PM CDT) [facility] Glucose 118(H) 70 - 99 mg/dL 03/13/2025 6:07 PM [facility] Sodium 135(L) 136 - 145 mmol/L 03/13/2025 6:07 PM [facility] Potassium 3.6 3.5 - 5.1 mmol/L 03/13/2025 6:07 PM [facility] Chloride 98 98 - 107 mmol/L 03/13/2025 6:07 PM [facility] CO2 27 22 - 29 mmol/L 03/13/2025 6:07 PM [facility] Calcium 7.7(L) 8.4 - 10.4 mg/dL 03/13/2025 6:07 PM [facility] Anion Gap 10 6 - 16 mmol/L 03/13/2025 6:07 PM [facility] BUN 23 7 - 26 mg/dL 03/13/2025 6:07 PM [facility] Creatinine 0.74 0.72 - 1.25 mg/dL 03/13/2025 6:07 PM [facility] Alkaline Phosphatase 94 40 - 150 U/L 03/13/2025 6:07 PM [facility] ALT 31 6 - 57 U/L 03/13/2025 6:07 PM [facility] AST 39 10 - 48 U/L 03/13/2025 6:07 PM [facility] Protein Total 5.6(L) 6.4 - 8.3 gm/dL 03/13/2025 6:07 PM [facility] Albumin 2.5(L) 3.1 - 4.5 gm/dL 03/13/2025 6:07 PM [facility] Bilirubin Total 0.5 0.2 - 1.2 mg/dL 03/13/2025 6:07 PM [facility] eGFR by CKD-EPI >90 >=90 mL/min/1.7 3 m2 03/13/2025 6:07 PM [facility] Comment:Estimated Glomerular Filtration Rate (eGFR) calculated using the CKD-EPI Creatinine Equation (2020), per the National Kidney Foundation and [place] Society of Nephrology recommendations. Blood BLOOD SPECIMEN / Unknown Venipuncture / Unknown 03/13/2025 4:40 PM CDT 03/13/2025 5:42 PM CDT us Provider Unknown LAB - CHEMISTRY ORDERABLES Johanne triny Result [facility] [address] [place] [address] * (ABNORMAL) CBC WITH DIFFERENTIAL (03/13/2025 4:40 PM CDT) WBC 15.3(H) 4.0 - 10.7 x10E9/L 03/13/2025 6:26 PM CDT [facility] RBC Count 2.83(L) 4.30 - 5.80 x10E12/L 03/13/2025 6:26 PM CDT [facility] Hemoglobin 7.9(L) 13.3 - 17.5 g/dL 03/13/2025 6:26 PM CDT [facility] Hematocrit 25.5(L) 38.7 - 51.1 % 03/13/2025 6:26 PM CDT [facility] MCV 90.1 80.0 - 98.0 fL 03/13/2025 6:26 PM CDT [facility] MCH 27.9 26.7 - 33.6 pg 03/13/2025 6:26 PM CDT [facility] MCHC 31.0(L) 31.7 - 36.3 g/dL 03/13/2025 6:26 PM CDT [facility] RDW-CV 15.7(H) 11.3 - 14.8 % 03/13/2025 6:26 PM CDT [facility] Platelet Count 266 150 - 420 x10E9/L 03/13/2025 6:26 PM CDT [facility] MPV 10.8 7.8 - 11.4 fL 03/13/2025 6:26 PM CDT [facility] Blood BLOOD SPECIMEN / Unknown 03/13/2025 4:40 PM CDT 03/13/2025 5:42 PM CDT us Provider Unknown LAB - HEMATOLOGY ORDERABLES Fin al Result [facility] [address] [place] [address] documented in this encounter Visit Diagnoses Not on filedocumented in this encounter Additional Health Concerns Infection Onset Date Last Indicated Resolved Time ESBL GNR 06/01/2024 06/01/2024 documented as of this encounter Care Teams Manager Process Improvement Relationship Specialty Start Date End Date Rod Strauss MD [address] [place] [id number] PCP - General Internal Medicine 06/15/24 documented as of this encounter
--- OUTSIDE RECORDS SUMMARY | 2025-04-14 10:40 | XMS_ITS | Encounter Summary ---
Author Organization [facility] Address [address] [place] [address] Care Team Providers Care Butcher Supervisor Name Role Phone Unavailable Primary Care Provider Unavailabl e Encounter Details Date Type Department Care Team (Late st Contact Info) Description 03/14/2006 Outpatient Historical [facility] Adult Hospitalists [facility] [address] [place] [address] Devan Agrawal MD [address] [facility] 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
--- OUTSIDE RECORDS SUMMARY | 2025-04-14 10:40 | XMS_ITS | Encounter Summary ---
Author Organization [facility] Address [address] [place] [address] Care Team Providers Care Toll Bridge Operator Name Role Phone Unavailable Primary Care Provider Unavailabl e Encounter Details Date Type Department Care Team (Late st Contact Info) Description 05/13/[address] [facility] [address] [place] [address] [facility], External Provider [address] [place] [address] Other fatigue Social History Tobacco Use Types Packs/Day Years Used Date Smoking Tobacco: Never Assessed Sex and Gender Information Value Date Recorded Sex Assigned at Not on file Legal Sex Male 3:46 AM INTELLECTUAL PROPERTY MANAGER Gender Identity Not on file Sexual Orientation Not on file documented as of this encounter Plan of Treatment Not on file documented as of this encounter Procedures Procedure Name Priority Date/Time Associated Diagnosis Comments CBC WITH DIFFERENTIAL Stat 05/13/2019 4:50 PM INTELLECTUAL PROPERTY MANAGER Other fatigue BASIC METABOLIC PANEL Stat 05/13/2019 4:50 PM INTELLECTUAL PROPERTY MANAGER Other fatigue documented in this encounter Results * (ABNORMAL) CBC WITH DIFFERENTIAL (05/13/2019 4:50 PM INTELLECTUAL PROPERTY MANAGER) [facility] WBC 6.1 4.5 - 10.5 K/uL 05/13/2019 9:52 PM INTELLECTUAL PROPERTY MANAGER [facility] RBC 4.04(L) 4.50 - 5.40 M/uL 05/13/2019 9:52 PM INTELLECTUAL PROPERTY MANAGER [facility] HEMOGLOBIN 12.1(L) 13.6 - 16.5 g/dL 05/13/2019 9:52 PM INTELLECTUAL PROPERTY MANAGER [facility] HEMATOCRIT 37.1(L) 40.0 - 48.0 % 05/13/2019 9:52 PM [facility] MCV 91.7 82.0 - 99.0 fL 05/13/2019 9:52 PM [facility] MCH 30.0 27.8 - 34.5 pg 05/13/2019 9:52 PM [facility] MCHC 32.7 32.5 - 35.5 g/dL 05/13/2019 9:52 PM [facility] RDW 14.9(H) 11.5 - 14.5 % 05/13/2019 9:52 PM [facility] PLATELETS 162 160 - 420 K/uL 05/13/2019 9:52 PM [facility] [employer] [facility] MPV 9.8 8.7 - 12.7 fL 05/13/2019 9:52 PM [facility] NEUTROPHILS 70 45 - 70 % 05/13/2019 9:52 PM [facility] LYMPHOCYTES 16 16 - 45 % 05/13/2019 9:52 PM [facility] MONOCYTES 10 3 - 13 % 05/13/2019 9:52 PM [facility] EOSINOPHILS 4 0 - 7 % 05/13/2019 9:52 PM [facility] BASOPHILS 1 0 - 2 % 05/13/2019 9:52 PM [facility] [employer] [facility] NEUTROPHIL ABSOLUTE 4.20 1.90 - 7.00 K/uL 05/13/2019 9:52 PM [facility] [employer] [facility] LYMPHOCYTE ABSOLUTE 0.90 K/uL 05/13/2019 9:52 PM [facility] MONOCYTE ABSOLUTE 0.60 K/uL 05/13/2019 9:52 PM [facility] EOSINOPHIL ABSOLUTE 0.30 0.00 - 0.70 K/uL 05/13/2019 9:52 PM [facility] BASOPHILS ABSOLUTE 0.00 K/uL 05/13/2019 9:52 PM [facility] [employer] [facility] Blood BLOOD SPECIMEN / Unknown Collection / Unknown 05/13/2019 4:50 PM INTELLECTUAL PROPERTY MANAGER 05/13/2019 9:42 PM INTELLECTUAL PROPERTY MANAGER us External Provider [facility] HEMATOLOGY ORDERABLES Fin al Result [facility] [employer] [facility] LESTER# [id number] [place] [address] * (ABNORMAL) BASIC METABOLIC PANEL (05/13/2019 4:50 PM INTELLECTUAL PROPERTY MANAGER) SODIUM 143 136 - 145 mmol/L 05/13/2019 10:11 PM [facility] [employer] [facility] POTASSIUM 4.2 3.4 - 5.1 mmol/L 05/13/2019 10:11 PM [facility] [employer] [facility] CHLORIDE 104 98 - 107 mmol/L 05/13/2019 10:11 PM [facility] [place] CO2 27 22 - 29 mmol/L 05/13/2019 10:11 PM [facility] [place] CALCIUM 8.5(L) 8.6 - 10.4 mg/dL 05/13/2019 10:11 PM [facility] [place] BUN 24(H) 6 - 20 mg/dL 05/13/2019 10:11 PM [facility] [place] [place] CREATININE 1.09 0.70 - 1.20 mg/dL 05/13/2019 10:11 PM [facility] [place] [place] Comment:The GFR result is no t clinically significant on patients <18 or >70 years of age. GLUCOSE 96 74 - 99 mg/dL 05/13/2019 10:11 PM [facility] [employer] [facility] GFR >60 mL/min/1.7 3 sq meter 05/13/2019 10:11 PM [facility] [employer] [facility] Comment: eGFR has not been validated [...] mL/min/1.7 3 sq meter 05/13/2019 10:11 PM INTELLECTUAL PROPERTY MANAGER [facility] ANION GAP 12 8 - 16 mmol/L 05/13/2019 10:11 PM INTELLECTUAL PROPERTY MANAGER [facility] Blood BLOOD SPECIMEN / Unknown Collection / Unknown 05/13/2019 4:50 PM INTELLECTUAL PROPERTY MANAGER 05/13/2019 9:42 PM INTELLECTUAL PROPERTY MANAGER External Provider [facility] CHEMISTRY ORDERABLES Johanne l Result [facility] CLIA# [id number] [place] [address] documented in this encounter Visit Diagnoses Diagnosis Other fatigue documented in this encounter
--- OUTSIDE RECORDS SUMMARY | 2025-04-14 10:40 | XMS_ITS | Encounter Summary ---
Author Organization [facility] Address [address] [place] [address] Care Team Providers Care Joggle Press Operator Name Role Phone Unavailable Primary Care Provider Unavailabl e Encounter Details Date Type Department Care Team (Late st Contact Info) Description 01/08/2006 Outpatient Historical [facility] Trauma and General Surgery [address] [facility] [address] [place] [address] Jayden James MD [address] 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
--- OUTSIDE RECORDS SUMMARY | 2025-04-14 10:40 | XMS_ITS | Encounter Summary ---
Author Organization [facility] Address [address] [place] [address] Care Team Providers Care Console Operator Name Role Phone Unavailable Primary Care Provider Unavailabl e Encounter Details Date Type Department Care Team (Late st Contact Info) Description 03/10/2006 Outpatient Historical [facility] Adult Hospitalists [address] [address] Rita Esqueda MD 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
--- OUTSIDE RECORDS SUMMARY | 2025-04-14 10:40 | XMS_ITS | Encounter Summary ---
Author Organization [facility] Address [address] [place] [address] Care Team Providers Care 4 H Youth Development Specialist Name Role Phone Unavailable Primary Care Provider Unavailabl e Encounter Details Date Type Department Care Team (Late st Contact Info) Description 01/11/2006 Outpatient Historical [facility]3] Trauma and General Surgery [address] [facility] [address] [address] [place] [address] [place] [address] Social History Tobacco Use Types Packs/Day Years Used Date Smoking Tobacco: Never Assessed Sex and Gender Information Value Date Recorded Sex Assigned at Not on file Legal Sex Male 3:46 AM CRUCIBLE PACKER Gender Identity Not on file Sexual Orientation Not on file documented as of this encounter Plan of Treatment Not on file documented as of this encounter Visit Diagnoses Not on filedocumented in this encounter
--- OUTSIDE RECORDS SUMMARY | 2025-04-14 10:40 | XMS_ITS | Encounter Summary ---
Author Organization [facility] Address 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
--- OUTSIDE RECORDS SUMMARY | 2025-04-14 10:40 | XMS_ITS | Clinical Summary ---
Author Organization [facility] Address [address] [place] [address] Care Team Providers Care Masseur/Masseuse Name Role Phone Unavailable Primary Care Provider [...] daily. 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 - Fall [...] oxycodone prn. Baclofen pump rx'd by the [facility]. Iron deficiency anemia, unspecified 10/26/2012 [...] Plan: Uses wheelchair at baseline. 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 Gender Identity Not on file Sexual Orientation [...] Health Maintenance Due Date Last Done Comments RSV VACCINE (60+ or ) (1 - 1-dose 75+ series) 2024 INFLUENZA VACCINE (#1) 2025 2, 04/16/2021, 04/17/2020, Additional history exists DTAP/TDAP/TD VACCINES (2 - T d or Tdap) 10/17/2031 10/16/2021, 07/01/2016 PNEUMOCOCCAL VACCINE 50+ YEARS Completed 1 07/12/2016, 10/24/2015, 09/16/2014, Additional history exists COLORECTAL SCREENING Discontinued 01/01/2020 Colorectal Cancer Screening Discontinued ZOSTER VACCINE Completed 12/11/2020, 10/10/2020 FIT-DNA Q 3 years Discontinued FIT/FOBT Q 1 year Discontinued Flex Sig/CT Colonography Q 5 years Discontinued Insurance [place] [address] [address] MEDICARE MANAGED CARE
--- OUTSIDE RECORDS SUMMARY | 2025-04-14 10:40 | XMS_ITS | Encounter Summary ---
Author Organization [facility] Address [address] [place] [address] Care Team Providers Care Director Of Restaurant Operations Name Role Phone Unavailable Primary Care Provider Unavailabl e Encounter Details Date Type Department Care Team (Late st Contact Info) Description 01/09/2006 Outpatient Historical [facility] Trauma and General Surgery [address] [facility] [address] [address] [place] [address] [place] [address] Social History Tobacco Use Types Packs/Day Years Used Date Smoking Tobacco: Never Assessed Sex and Gender Information Value Date Recorded Sex Assigned at Not on file Legal Sex Male 3:46 AM OPERATIONS DEVELOPER Gender Identity Not on file Sexual Orientation Not on file documented as of this encounter Plan of Treatment Not on file documented as of this encounter Visit Diagnoses Not on filedocumented in this encounter
--- OUTSIDE RECORDS SUMMARY | 2025-04-14 10:40 | XMS_ITS | Encounter Summary ---
Author Organization [facility] Address [address] [place] [address] Care Team Providers Care Wireless Cellular Technician Name Role Phone Unavailable Primary Care Provider Unavailabl e Encounter Details Date Type Department Care Team (Latest Contact Info) Description 03/19/2006 Inpatient Historical HIS [place] [address] [place] [address] Other Specified Rehabilitation Procedure (Primary Dx) Social History Tobacco Use Types Packs/Day Years Used Date Smoking Tobacco: Never Assessed Sex and Gender Information Value Date Recorded Sex Assigned at Not on file Legal Sex Male 3:46 AM SHOWPLACE MANAGER Gender Identity Not on file Sexual [...] ORDERABLES Final Re sult Performing Organization Address [facility] Phone Number INTERFACE SYSTEM Refer to clinic/hospital department * C-REACTIVE PROTEIN (04/05/2006 5:15 AM CDT) Pathologist [facility] CRP 0.2 0.0 - 0.8 mg/dL INTERFACE SYSTEM 04/05/2006 5:15 AM CDT [facility] CHEMISTRY ORDERABLES Final Res ult Performing Organization Address [facility] Phone Number INTERFACE SYSTEM Refer to clinic/hospital department * (ABNORMAL) VANCOMYCIN LEVEL TROUGH (03/31/2006 11:15 AM CDT) Pathologist [facility] VANCOMYCIN, TROUGH 18.3(AA) 5.0 - 15.0 ug/mL INTERFACE SYSTEM Comment: Vancomycin Trough Toxic Level= >15.0 ug/mL Results called to Amy_ at 03/31/2006 12:05 PM and read back verified. 03/31/2006 11:1 5 AM CDT Sushil Arroyo MD CHEMISTRY ORDERABLES Final R esult Performing Organization Address [facility] Phone Number INTERFACE SYSTEM Refer to clinic/hospital department * (ABNORMAL) CBC WITH DIFFERENTIAL (03/29/2006 5:15 AM CDT) Pathologist [facility] NEUTROPHILS 64 45 - 70 % INTERFAC [...] Res ult Performing Organization Address [facility] Phone Number INTERFACE SYSTEM Refer to clinic/hospital [...] ult Performing Organization Address [facility] Phone Number INTERFACE SYSTEM Refer to clinic/hospital department * C-REACTIVE PROTEIN (03/29/2006 5:15 AM CDT) CRP 0.3 0.0 - 0.8 mg/dL INTERFACE SYSTEM 03/29/2006 5:15 AM CDT us Keenan Mandujano MD CHEMISTRY ORDERABLES Final Resu lt Performing Organization Address [facility] Phone Number INTERFACE SYSTEM Refer to clinic/hospital [...] Resu lt Performing Organization Address [facility] Phone Number INTERFACE SYSTEM Refer to clinic/hospital [...] Re sult Performing Organization Address [facility] Phone Number INTERFACE SYSTEM Refer to clinic/hospital [...] INTERFACE SYSTEM 03/24/2006 12:1 0 PM CDT [facility] HEMATOLOGY ORDERABLES Final Re sult Performing Organization Address [facility] Phone Number INTERFACE SYSTEM Refer to clinic/hospital department * VANCOMYCIN LEVEL TROUGH (03/24/2006 12:10 PM CDT) VANCOMYCIN, TROUGH 11.3 5.0 - 15.0 ug/mL INTERFACE SYSTEM Comment: Vancomycin Trough Toxic Level= >15.0 ug/mL 03/24/2006 12:1 0 PM CDT [facility] CHEMISTRY ORDERABLES Final Res ult Performing Organization Address [facility] Phone Number INTERFACE SYSTEM Refer to clinic/hospital department * C-REACTIVE PROTEIN (03/24/2006 12:10 PM CDT) CRP 0.6 0.0 - 0.8 mg/dL INTERFACE SYSTEM 03/24/2006 12:1 0 PM CDT [facility] CHEMISTRY ORDERABLES Final Res ult Performing Organization Address [facility] Phone Number INTERFACE SYSTEM Refer to clinic/hospital [...] ORDERABLES Final Res ult Performing Organization Address [facility] Co de Phone Number INTERFACE SYSTEM Refer [...] INTERFACE SYSTEM 03/23/2006 11:3 0 AM CDT [facility] HEMATOLOGY ORDERABLES Final Re sult Performing Organization Address [facility] de Phone Number INTERFACE SYSTEM Refer to clinic/hospital department * (ABNORMAL) CBC WITH DIFFERENTIAL (03/23/2006 11:30 AM CDT) Pathologist [facility] WBC 6.1 4.0 - 9.8 K/uL INTERFACE [...] INTERFACE SYSTEM 03/23/2006 11:3 0 AM CDT [facility] HEMATOLOGY ORDERABLES Final Re sult Performing Organization Address [facility] Co de Phone Number INTERFACE SYSTEM Refer to clinic/hospital department * VANCOMYCIN LEVEL TROUGH (03/23/2006 11:30 AM CDT) VANCOMYCIN, TROUGH 6.2 5.0 - 15.0 ug/mL INTERFACE SYSTEM Comment: Vancomycin Trough Toxic Level= >15.0 ug/mL 03/23/2006 11:3 0 AM CDT [facility] CHEMISTRY ORDERABLES Final Res ult Performing Organization Address [facility] Phone Number INTERFACE SYSTEM Refer to clinic/hospital department * (ABNORMAL) C-REACTIVE PROTEIN (03/23/2006 11:30 AM CDT) CRP 1.0(H) 0.0 - 0.8 mg/dL INTERFACE SYSTEM 03/23/2006 11:3 0 AM CDT [facility] CHEMISTRY ORDERABLES Final Res ult Performing Organization Address [facility] Phone Number INTERFACE SYSTEM Refer to [...] INTERFACE SYSTEM 03/23/2006 11:3 0 AM [facility] ORDER[facility] Final Res ult Performing Organization Address [facility] Phone Number INTERFACE SYSTEM Refer to clinic/hospital [...] R esult Performing Organization Address [facility] Phone Number INTERFACE SYSTEM Refer to clinic/hospital [...] /HPF INTERFACE SYSTEM 03/22/2006 8:30 PM CDT [facility] URINE ORDERABLES Final Result Performing Organization Address [facility] Phone Number INTERFACE SYSTEM Refer to clinic/hospital [...] Sushil Arroyo MD CHEMISTRY ORDERABLES Final R [facility] Performing Organization Address [facility] de Phone Number INTERFACE SYSTEM Refer [...] Sushil Arroyo MD CHEMISTRY ORDERABLES Final R [facility] Performing Organization Address [facility] de Phone Number INTERFACE SYSTEM Refer [...] Final Result Performing Organization Address [facility] Phone Number INTERFACE SYSTEM Refer to clinic/hospital [...] Final Result Performing Organization Address [facility] Phone Number INTERFACE SYSTEM Refer to clinic/hospital [...] R esult Performing Organization Address [facility] Phone Number INTERFACE SYSTEM Refer to clinic/hospital [...] Resul t Performing Organization Address [facility] Phone Number INTERFACE SYSTEM Refer to clinic/hospital department documented in this encounter Visit Diagnoses Diagnosis Other specified rehabilitation procedure(V57.89)- Primary Other specified rehabilitation procedure documented in this encounter
--- OUTSIDE RECORDS SUMMARY | 2025-04-14 10:40 | XMS_ITS | Encounter Summary ---
Author Organization [facility] Address 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 Gender Identity Not on file Sexual [...] ABG ORDERABLES Final Result Performing Organization Address [facility] Phone Number INTERFACE SYSTEM Refer [...] ORDERABLES Final Re sult Performing Organization Address [facility] Phone Number INTERFACE SYSTEM Refer [...] INTERFACE SYSTEM 03/14/2006 4:37 AM CDT [facility] ORDERABLES Final Re sult Performing Organization Address [facility] Phone Number INTERFACE SYSTEM Refer to clinic/hospital department * MAGNESIUM LEVEL (03/14/2006 4:37 AM CDT) MAGNESIUM 2.0 1.5 - 2.5 mg/dL INTERFACE SYSTEM 03/14/2006 4:37 AM CDT Rita Esqueda MD CHEMISTRY ORDERABLES Final Res ult Performing Organization Address [facility] Phone Number INTERFACE SYSTEM Refer to [...] mmol/L INTERFACE SYSTEM 03/14/2006 4:37 AM CDT [facility] ORDER[facility] Final Res ult Performing Organization Address [facility] Phone Number INTERFACE SYSTEM Refer to clinic/hospital department * (ABNORMAL) C-REACTIVE PROTEIN (03/14/2006 4:37 AM CDT) CRP 4.1(H) 0.0 - 0.8 mg/dL INTERFACE SYSTEM 03/14/2006 4:37 AM CDT [facility] CHEMISTRY ORDERABLES Final Res ult Performing Organization Address [facility] Phone Number INTERFACE SYSTEM Refer to clinic/hospital department * VANCOMYCIN LEVEL TROUGH (03/13/2006 1:02 PM CDT) VANCOMYCIN, TROUGH 8.7 5.0 - 15.0 ug/mL INTERFACE SYSTEM Comment: Vancomycin Trough Toxic Level= >15.0 ug/mL 03/13/2006 1:02 PM CDT [facility] CHEMISTRY ORDERABLES Final Res ult Performing Organization Address [facility] Phone Number INTERFACE SYSTEM Refer to [...] ORDERABLES Final R esult Performing Organization Address [facility] Phone Number INTERFACE SYSTEM Refer to clinic/hospital department * C-REACTIVE PROTEIN, CSF (03/12/2006 3:10 PM CDT) CRP, CSF 0.15 mg/dL INTERFACE SYSTEM Comment: Note: New methodology using CSF CRP (highly sensitive) assay is effective 12/11/03. No reference range has been established for CSF CRP. 03/12/2006 3:10 PM CDT Alexa Dillon MD BODY FLUIDS AND STOOLS Final Result Performing Organization Address [facility] Phone Number INTERFACE SYSTEM Refer to [...] AND STOOLS Final Result Performing Organization Address [facility] Phone Number INTERFACE SYSTEM Refer to clinic/hospital department * (ABNORMAL) TOTAL PROTEIN, CSF (03/12/2006 3:10 PM CDT) PROTEIN, CSF 365(H) 15 - 45 mg/dL INTERFACE SYSTEM Comment: New CSF Protein Quantitative Methodology - Note New Reference Range. bloody sample 03/12/2006 3:10 PM CDT Aman Gottlieb DO BODY FLUIDS AND STOOLS Final Result Performing Organization Address [facility] Phone Number INTERFACE SYSTEM Refer to [...] PM and read back verified. RBC, CSF 000795(H) <=0 /uL INTERFACE SYSTEM 03/12/2006 3:10 PM CDT us Aman Gottileb DO BODY FLUIDS AND STOOLS Final Result Performing Organization Address [facility] de Phone Number INTERFACE [...] HEMATOLOGY ORDERABLES Final Result Performing Organization Address [facility] de Phone Number INTERFACE [...] HEMATOLOGY ORDERABLES Final Result Performing Organization Address [facility] Phone Number INTERFACE SYSTEM Refer [...] ORDERABLES Final R esult Performing Organization Address [facility] de Phone Number INTERFACE [...] HEMATOLOGY ORDERABLES Final Result Performing Organization Address [place]/[facility] de Phone Number INTERFACE [...] HEMATOLOGY ORDERABLES Final Result Performing Organization Address [facility] Co de Phone Number INTERFACE SYSTEM Refer to clinic/hospital department * (ABNORMAL) C-REACTIVE PROTEIN (03/11/2006 4:40 AM CDT) CRP 6.5(H) 0.0 - 0.8 mg/dL INTERFACE SYSTEM 03/11/2006 4:40 AM CDT Sushil Arroyo MD CHEMISTRY ORDERABLES Final R [facility] Performing Organization Address [facility] Phone Number INTERFACE SYSTEM Refer [...] Sushil Arroyo MD CHEMISTRY ORDERABLES [facility] Performing Organization Address [facility] Phone Number INTERFACE SYSTEM Refer [...] HEMATOLOGY ORDERABLES Final Result Performing Organization Address [facility] Phone Number INTERFACE SYSTEM Refer [...] ORDERABLES Final Resul t Performing Organization Address [facility] de Phone Number INTERFACE [...] HEMATOLOGY ORDERABLES Final Result Performing Organization Address [place]/[facility] de Phone Number INTERFACE [...] HEMATOLOGY ORDERABLES Final Result Performing Organization Address [facility] de Phone Number INTERFACE [...] Performing Organization Address [place]/[facility] de Phone Number INTERFACE [...] ORDERABLES Final Res ult Performing Organization Address [facility] Phone Number INTERFACE SYSTEM Refer [...] ORDERABLES Final Res ult Performing Organization Address [facility] Phone Number INTERFACE SYSTEM Refer to clinic/hospital department * (ABNORMAL) C-REACTIVE PROTEIN (03/08/2006 6:34 PM CDT) CRP 5.2(H) 0.0 - 0.8 mg/dL INTERFACE SYSTEM 03/08/2006 6:34 PM CDT us Keenan Mandujano MD CHEMISTRY ORDERABLES Final Resu lt Performing Organization Address [facility] [place] Phone Number INTERFACE SYSTEM Refer to clinic/hospital [...] URINE ORDERABLES Final Result Performing Organization Address [facility] Phone Number INTERFACE SYSTEM Refer [...] HEMATOLOGY ORDERABLES Final Result Performing Organization Address [facility] Phone Number INTERFACE SYSTEM Refer [...] ORDERABLES Final Resul t Performing Organization Address [facility] Phone Number INTERFACE SYSTEM Refer [...] K/uL INTERFACE SYSTEM 03/05/2006 4:48 AM CDT Susihl Arroyo MD HEMATOLOGY ORDERABLES Final Result Performing Organization Address [facility] Phone Number INTERFACE SYSTEM Refer [...] HEMATOLOGY ORDERABLES Final Result Performing Organization Address [place]/[facility] de Phone Number INTERFACE [...] ORDERABLES Final R esult Performing Organization Address [place]/[facility] de Phone Number INTERFACE [...] HEMATOLOGY ORDERABLES Final Result Performing Organization Address [facility] Phone Number INTERFACE SYSTEM Refer [...] URINE ORDERABLES Final Result Performing Organization Address [facility] Phone Number INTERFACE SYSTEM Refer [...] HEMATOLOGY ORDERABLES Final Result Performing Organization Address [facility] Phone Number INTERFACE SYSTEM Refer [...] HEMATOLOGY ORDERABLES Final Result Performing Organization Address [facility] Phone Number INTERFACE SYSTEM Refer [...] ORDERABLES Final R esult Performing Organization Address [facility] de Phone Number INTERFACE [...] HEMATOLOGY ORDERABLES Final Result Performing Organization Address [facility] Phone Number INTERFACE SYSTEM Refer [...] HEMATOLOGY ORDERABLES Final Result Performing Organization Address [place]/[facility] Co de Phone Number [...] INTERFACE SYSTEM 02/26/2006 12:4 4 PM CDT [facility] HEMATOLOGY ORDERABLES Final Re sult Performing Organization Address [place]/[facility] de Phone Number INTERFACE SYSTEM Refer to clinic/hospital department * C-REACTIVE PROTEIN (02/26/2006 12:44 PM CDT) CRP 0.2 0.0 - 0.8 mg/dL INTERFACE SYSTEM 02/26/2006 12:4 4 PM CDT [email or web address] CHEMISTRY ORDERABLES Final Res ult Performing Organization Address [facility] de Phone Number INTERFACE [...] ORDERABLES Final Res ult Performing Organization Address [facility] Phone Number INTERFACE SYSTEM Refer [...] ORDERABLES Final Resul t Performing Organization Address [facility] Phone Number INTERFACE SYSTEM Refer [...] K/uL INTERFACE SYSTEM 02/25/2006 4:36 AM CDT [facility] HEMATOLOGY ORDERABLES Final Re sult Performing Organization Address [facility] de Phone Number INTERFACE [...] fL INTERFACE SYSTEM 02/25/2006 4:36 AM CDT [facility] HEMATOLOGY ORDERABLES Final Re sult Performing Organization Address [facility] Phone Number INTERFACE SYSTEM Refer [...] SYSTEM 02/25/2006 4:36 AM CDT [facility] CHEMISTRY ORDERABLES Final Res ult Performing Organization Address [facility] Phone Number INTERFACE SYSTEM Refer to clinic/hospital department * C-REACTIVE PROTEIN (02/25/2006 4:36 AM CDT) CRP 0.2 0.0 - 0.8 mg/dL INTERFACE SYSTEM 02/25/2006 4:36 AM CDT [facility] CHEMISTRY ORDERABLES Final Res ult Performing Organization Address [facility] Phone Number INTERFACE SYSTEM Refer [...] URINE ORDERABLES Final Result Performing Organization Address [facility] Phone Number INTERFACE SYSTEM Refer [...] HEMATOLOGY ORDERABLES Final Result Performing Organization Address [facility] Phone Number INTERFACE SYSTEM Refer [...] HEMATOLOGY ORDERABLES Final Result Performing Organization Address [facility] Phone Number INTERFACE SYSTEM Refer [...] ORDERABLES Final Resul t Performing Organization Address [facility] Phone Number INTERFACE SYSTEM Refer [...] HEMATOLOGY ORDERABLES Final Result Performing Organization Address [place]/[facility] Phone Number INTERFACE SYSTEM Refer [...] HEMATOLOGY ORDERABLES Final Result Performing Organization Address [facility] de Phone Number INTERFACE [...] ORDERABLES Final Resul t Performing Organization Address [facility] de Phone Number INTERFACE [...] ORDERABLES Final Res ult Performing Organization Address [facility] Phone Number INTERFACE SYSTEM Refer [...] ORDERABLES Final Res ult Performing Organization Address [facility] Phone Number INTERFACE SYSTEM Refer [...] HEMATOLOGY ORDERABLES Final Result Performing Organization Address [facility] de Phone Number INTERFACE [...] ORDERABLES Final Res ult Performing Organization Address [facility] Co de Phone Number [...] Performing Organization Address [place]/[facility] Co de Phone Number [...] HEMATOLOGY ORDERABLES Final Result Performing Organization Address [place]/[facility]/ZIP Co de Phone Number INTERFACE SYSTEM Refer [...] ORDERABLES Final Resul t Performing Organization Address [facility] Phone Number INTERFACE SYSTEM Refer [...] HEMATOLOGY ORDERABLES Final Result Performing Organization Address [facility] Phone Number INTERFACE SYSTEM Refer [...] HEMATOLOGY ORDERABLES Final Result Performing Organization Address [facility] de Phone Number INTERFACE [...] ORDERABLES Final R esult Performing Organization Address [place]/[facility]/ZIP Co de Phone Number INTERFACE SYSTEM Refer [...] HEMATOLOGY ORDERABLES Final Result Performing Organization Address City/State/[facility] Co de Phone Number [...] ORDERABLES Final Resu lt Performing Organization Address [place]/[facility] de Phone Number INTERFACE [...] ORDERABLES Final Res ult Performing Organization Address [facility] de Phone Number INTERFACE [...] ORDERABLES Final Res ult Performing Organization Address [facility] de Phone Number INTERFACE [...] ORDERABLES Final Res ult Performing Organization Address [facility] Phone Number INTERFACE SYSTEM Refer [...] ORDERABLES Final Res t Performing Organization Address [facility] Phone Number INTERFACE SYSTEM Refer [...] been established. 01/28/2006 4:[address] [facility] Keenan Mandujano MD HEMATOLOGY ORDERABLES Final [facility] Performing Organization Address [facility] Phone Number INTERFACE SYSTEM Refer [...] ORDERABLES Final Res ult Performing Organization Address [facility] Phone Number INTERFACE SYSTEM Refer [...] ORDERABLES Final Res ult Performing Organization Address [facility] Phone Number INTERFACE SYSTEM Refer [...] ORDERABLES Final Res ult Performing Organization Address [facility] Phone Number INTERFACE SYSTEM Refer [...] been established. 01/23/2006 4:[address] [facility] Keenan Mandujano MD HEMATOLOGY ORDERABLES Final Res ult Performing Organization Address [facility] Phone Number INTERFACE SYSTEM Refer [...] ORDERABLES Final Res ult Performing Organization Address [facility] Phone Number INTERFACE SYSTEM Refer [...] ORDERABLES Final Resu lt Performing Organization Address [facility] Phone Number INTERFACE SYSTEM Refer [...] ORDERABLES Final Res ult Performing Organization Address [facility] Phone Number INTERFACE SYSTEM Refer [...] ORDERABLES Final Resu lt Performing Organization Address [facility] Phone Number INTERFACE SYSTEM Refer [...] ORDERABLES Final Resu lt Performing Organization Address [place]/[facility] Co de Phone Number [...] HEMATOLOGY ORDERABLES Final Result Performing Organization Address [place]/[facility] Co de Phone Number [...] ORDERABLES Final R esult Performing Organization Address [place]/[facility] Co de Phone Number [...] ORDERABLES Final Resul t Performing Organization Address City/[facility]/ZIP Co de Phone Number INTERFACE SYSTEM Refer to clinic/hospital department documented in this encounter Visit Diagnoses Diagnosis Other specified rehabilitation procedure(V57.89)- Primary Other specified rehabilitation procedure documented in this encounter
--- OUTSIDE RECORDS SUMMARY | 2025-04-14 10:40 | XMS_ITS | Encounter Summary ---
Author Organization [facility] Address [address] [place] [address] Care Team Providers Care Water Reclamation Systems Operator Name Role Phone Unavailable Primary Care Provider Unavailabl e Encounter Details Date Type Department Care Team (Late st Contact Info) Description 01/11/2006 Outpatient Historical [facility] Trauma and General Surgery [address] [facility] [facility] [address] [id number] [place] [address] [place] [address] Social History Tobacco Use Types Packs/Day Years Used Date Smoking Tobacco: Never Assessed Sex and Gender Information Value Date Recorded Sex Assigned at Not on file 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
--- OUTSIDE RECORDS SUMMARY | 2025-04-14 10:40 | XMS_ITS | Encounter Summary ---
Author Organization [facility] Address [address] [place] [address] Care Team Providers Care Salicylic Acid Blender Name Role Phone Unavailable Primary Care Provider Unavailabl e Encounter Details Date Type Department Care Team (Late st Contact Info) Description 01/10/2006 Outpatient Historical [facility] Trauma and General Surgery 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
--- OUTSIDE RECORDS SUMMARY | 2025-04-14 10:40 | XMS_ITS | Encounter Summary ---
Author Organization [facility] Address [address] [place] [address] Care Team Providers Care Bending Shed Worker Name Role Phone Unavailable Primary Care Provider Unavailabl e Encounter Details Date Type Department Care Team (Late st Contact Info) Description 01/04/2006 Outpatient Historical [facility] Trauma and General Surgery [address] [address] [facility] [place] [address] Jayden James MD [address] [facility] [place] [address] Social History Tobacco Use Types Packs/Day Years Used Date Smoking Tobacco: Never Assessed Sex and Gender Information Value Date Recorded Sex Assigned at Not on file 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
--- OUTSIDE RECORDS SUMMARY | 2025-04-14 10:40 | XMS_ITS | Encounter Summary ---
Author Organization [facility] Address [address] [place] [address] Care Team Providers Care Cementer Machine Applicator Name Role Phone Unavailable Primary Care Provider Unavailabl e Encounter Details Date Type Department Care Team (Late st Contact Info) Description 01/06/2006 Outpatient Historical [facility] Trauma and General Surgery [address] [facility] [address] [facility] [place] [address] Jayden James MD [address] [facility] 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
--- OUTSIDE RECORDS SUMMARY | 2025-04-14 10:40 | XMS_ITS | Encounter Summary ---
Author Organization [facility] Address [address] [place] [address] Care Team Providers Care Laminator Preforms Name Role Phone Unavailable Primary Care Provider Unavailabl e Encounter Details Date Type Department Care Team (Late st Contact Info) Description 09/26/[address] 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OR[facility] SERVICES - [facility] POTASSIUM 5.1 3.4 - 5.1 mmol/L 09/26/2019 8:53 PM CDT [facility] LABOR[facility]ORY SERVICES - [facility] CHLORIDE 105 98 - 107 mmol/L 09/26/2019 [...] 3 sq meter 09/26/2019 8:53 PM CDT [facility] ANION GAP 14 8 - 16 mmol/L 09/26/2019 8:53 PM CDT [facility] Blood BLOOD SPECIMEN / Unknown Collection / Unknown 09/26/2019 3:44 PM CDT 09/26/2019 8:17 PM CDT us External Provider [facility] CHEMISTRY ORDERABLES Johanne l Result [facility] CLIA# [id number] [place] [address] * (ABNORMAL) CBC WITH DIFFERENTIAL (09/26/2019 3:44 PM CDT) WBC 6.6 4.5 - 10.5 K/uL 09/26/2019 8:26 PM CDT [facility] RBC 3.80(L) 4.50 - 5.40 M/uL 09/26/2019 8:26 PM CDT [facility] HEMOGLOBIN 11.5(L) 13.6 - 16.5 g/dL 09/26/2019 8:26 PM CDT [facility] HEMATOCRIT 34.3(L) 40.0 - 48.0 % 09/26/2019 8:26 PM CDT [facility] MCV 90.2 82.0 - 99.0 fL 09/26/2019 8:26 PM CDT [facility] MCH 30.2 27.8 - 34.5 pg 09/26/2019 8:26 PM CDT [facility] MCHC 33.5 32.5 - 35.5 g/dL 09/26/2019 8:26 PM CDT [facility] RDW 15.8(H) 11.5 - 14.5 % 09/26/2019 8:26 PM CDT [facility] PLATELETS 175 160 - 420 K/uL 09/26/2019 8:26 PM CDT [facility] LABORATORY [facility] MPV 10.2 8.7 - 12.7 fL 09/26/2019 8:26 PM CDT [facility] NEUTROPHILS 68 45 - 70 % 09/26/2019 8:26 PM CDT [facility] LABORAT[facility] LYMPHOCYTES 16 16 - 45 % 09/26/2019 8:26 PM CDT [facility] LABORAT[facility] MONOCYTES 10 3 - 13 % 09/26/2019 8:26 PM CDT [facility] LABORATORY SERVICES [facility] EOSINOPHILS 5 0 - 7 % 09/26/2019 8:26 PM CDT [facility] LABORATORY SERVICES [facility] BASOPHILS 1 0 - 2 % 09/26/2019 8:26 PM CDT [facility] LABORAT[facility] NEUTROPHIL ABSOLUTE 4.50 1.90 - 7.00 K/uL 09/26/2019 8:26 PM CDT [facility] LABORATORY [facility] LYMPHOCYTE ABSOLUTE 1.10 0.70 - 4.50 K/uL 09/26/2019 8:26 PM CDT [facility] LABORAT[facility] MONOCYTE ABSOLUTE 0.60 0.10 - 1.30 K/uL 09/26/2019 8:26 PM CDT [facility] LABORAT[facility] EOSINOPHIL ABSOLUTE 0.40 0.00 - 0.70 K/uL 09/26/2019 8:26 PM CDT [facility] LABORAT[facility] BASOPHILS ABSOLUTE 0.00 0.00 - 0.20 K/uL 09/26/2019 8:26 PM CDT [facility] LAB[facility] Blood BLOOD SPECIMEN / Unknown Collection / Unknown 09/26/2019 3:44 PM CDT 09/26/2019 8:17 PM CDT us External Provider [facility] HEMATOLOGY ORDERABLES Fin al Result [facility] CLIA# [id number] [place] [address] * (ABNORMAL) URINALYSIS WITH REFLEX MICROSCOPIC (09/26/2019 3:00 PM CDT) COLOR UA Yellow Pale to Dark Yellow 09/26/2019 8:52 PM CDT [facility] CLARITY UA Slightly Cloudy(A) Clear 09/26/2019 8:52 PM CDT [facility] SPECIFIC GRAVITY UA 1.019 1.003 - 1.035 09/26/2019 8:52 PM CDT [facility] PH UA 5.0 5.0 - 8.0 09/26/2019 8:52 PM CDT [facility] LEUKOCYTE ESTERASE UA Negative Negative 09/26/2019 8:52 PM CDT [facility] NITRITE UA Negative Negative 09/26/2019 8:52 PM CDT [facility] PROTEIN UA Negative Negative 09/26/2019 8:52 PM CDT [facility] GLUCOSE UA Negative Negative 09/26/2019 8:52 PM CDT [facility] KETONES UA Negative Negative 09/26/2019 8:52 PM CDT [facility] UROBILINOGEN UA Normal <2.0 mg/dL 0 8:52 PM CDT [facility] BILIRUBIN UA Negative Negative 09/26/2019 8:52 PM CDT [facility] BLOOD UA Negative Negative 09/26/2019 8:52 PM CDT [facility] Comment:Ascorbic acid may ca use false negative results for blood. A microscopic review was reflexed to rule out this interference. WBC UA 0-2 0 - 2 /hpf [facility]2019 [facility] RBC UA 0-2 0 - 2 /hpf 09/26/2019 8:52 PM CDT [facility] BACTERIA UA 1+(A) Negative /hpf 09/26/2019 8:52 PM CDT [facility] EPITHELIAL CELLS, URINE 0-5 0 - 5 /hpf 09/26/2019 8:52 PM CDT [facility] HYALINE CAST 0-2 None Seen, 0-2 /lpf 09/26/2019 8:52 PM CDT [facility] Ascorbic Acid UA Positive(A) Negative 020 8:52 PM CDT [facility] Urine URINE SPECIMEN OBTAINED BY CLEAN CATCH PROCEDURE / Unknown Collection / Unknown 09/26/2019 3:00 PM CDT 09/26/2019 8:17 PM CDT us External Provider [facility] URINE ORDERABLES Final Re sult [facility] CLIA# [id number] [place] [address] documented in this encounter Visit Diagnoses Diagnosis Unspecified abnormal findings in urine documented in this encounter
--- OUTSIDE RECORDS SUMMARY | 2025-04-14 10:40 | XMS_ITS | Encounter Summary ---
Author Organization [facility] Address 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
--- OUTSIDE RECORDS SUMMARY | 2025-04-14 10:40 | XMS_ITS | Encounter Summary ---
Author Organization [facility] Address [address] [place] [address] Care Team Providers Care Drafter Directional Survey Name Role Phone Unavailable Primary Care Provider Unavailabl e Encounter Details Date Type Department Care Team (Late st Contact Info) Description 01/12/2006 Outpatient Historical [facility] Trauma and General Surgery [address] [address] [id number] [place] [address] [place] [address] Social History Tobacco Use Types Packs/Day Years Used Date Smoking Tobacco: Never Assessed Sex and Gender Information Value Date Recorded Sex Assigned at Not on file 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
--- OUTSIDE RECORDS SUMMARY | 2025-04-14 10:40 | XMS_ITS | Encounter Summary ---
Author Organization [facility] Address [address] [place] [address] Care Team Providers Care Bit Gatherer Name Role Phone Unavailable Primary Care Provider Unavailabl e Encounter Details Date Type Department Care Team (Latest Contact Info) Description 03/15/2006 Inpatient Historical HIS PATIENT IN A BED Yenny Hauser MD NO ADDRESS ON FILE Devan Agrawal MD [address] [facility] 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 Gender Identity Not on file Sexual Orientation [...] ORDERABLES Final R esult Performing Organization Address [facility] Phone Number INTERFACE SYSTEM Refer to clinic/hospital [...] ORDERABLES Final R esult Performing Organization Address [facility] Phone Number INTERFACE SYSTEM Refer to clinic/hospital department * MAGNESIUM LEVEL (03/19/2006 4:38 AM CDT) MAGNESIUM 1.7 1.5 - 2.5 mg/dL INTERFACE SYSTEM 03/19/2006 4:38 AM CDT Yenny Hauser MD CHEMISTRY ORDERABLES Final Re sult Performing Organization Address [facility] Co de Phone Number INTERFACE SYSTEM Refer [...] ORDERABLES Final Re sult Performing Organization Address [facility] Co de Phone Number INTERFACE SYSTEM Refer to clinic/hospital department * VANCOMYCIN LEVEL TROUGH (03/18/2006 11:30 AM CDT) Pathologist [facility] VANCOMYCIN, TROUGH 11.5 5.0 - 15.0 ug/mL INTERFACE SYSTEM Comment: Vancomycin Trough Toxic Level= >15.0 ug/mL 03/18/2006 11:3 0 AM CDT Yenny Hauser MD CHEMISTRY ORDERABLES Final Re sult Performing Organization Address [facility] Co de Phone Number INTERFACE SYSTEM Refer to clinic/hospital department * (ABNORMAL) CBC WITH DIFFERENTIAL (03/18/2006 9:08 AM CDT) Pathologist [facility] NEUTROPHILS 76(H) 45 - 70 % INTERFAC [...] ORDERABLES Final Res ult Performing Organization Address City/[facility] de Phone [...] ORDERABLES Final Resu lt Performing Organization Address [facility] Phone Number INTERFACE SYSTEM Refer to clinic/hospital [...] HEMATOLOGY ORDERABLES Final Result Performing Organization Address [facility] Phone Number INTERFACE SYSTEM Refer to clinic/hospital [...] HEMATOLOGY ORDERABLES Final Result Performing Organization Address [facility] Phone Number INTERFACE SYSTEM Refer to clinic/hospital department * (ABNORMAL) C-REACTIVE PROTEIN (03/17/2006 4:45 AM CDT) CRP 2.4(H) 0.0 - 0.8 mg/dL INTERFACE SYSTEM 03/17/2006 4:45 AM CDT Historical Provider CHEMISTRY ORDERABLES Final R esult Performing Organization Address [facility] Phone Number INTERFACE SYSTEM Refer to clinic/hospital [...] ORDERABLES Final R esult Performing Organization Address [facility] Phone Number INTERFACE SYSTEM Refer to clinic/hospital department * (ABNORMAL) ACETONE QUALITATIVE (03/16/2006 6:30 PM CDT) ACETONE QUAL 2+ (30 mg/dL)(A) Neg (<10 mg/dL) INTERFACE SYSTEM 03/16/2006 6:30 PM CDT us Historical Provider CHEMISTRY ORDERABLES Final R esult Performing Organization Address [facility] Phone Number INTERFACE SYSTEM Refer to clinic/hospital department * LACTIC ACID (03/16/2006 6:30 PM CDT) LACTIC ACID 1.0 0.5 - 2.2 mmol/L INTERFACE SYSTEM 03/16/2006 6:30 PM CDT us Historical Provider CHEMISTRY ORDERABLES Final R esult Performing Organization Address [facility] Phone Number INTERFACE SYSTEM Refer to clinic/hospital [...] ORDERABLES Final Resu lt Performing Organization Address [facility] Phone Number INTERFACE SYSTEM Refer to clinic/hospital [...] HEMATOLOGY ORDERABLES Final Result Performing Organization Address [facility] Phone Number INTERFACE SYSTEM Refer to clinic/hospital [...] ORDERABLES Final R esult Performing Organization Address [facility] de Phone [...] ORDERABLES Final Res ult Performing Organization Address [facility] Phone Number INTERFACE SYSTEM Refer to clinic/hospital [...] ORDERABLES Final Res ult Performing Organization Address [facility] de Phone [...]
--- OUTSIDE RECORDS SUMMARY | 2025-04-14 10:40 | XMS_ITS | Encounter Summary ---
Author Organization [employer] Address 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 Gender Identity Not on file Sexual [...] Res ult Performing Organization Address [facility] Phone Number INTERFACE SYSTEM Refer [...] Res ult Performing Organization Address [facility] Phone Number INTERFACE SYSTEM Refer [...] ORDERABLES Final Resu lt Performing Organization Address [facility] Phone Number INTERFACE SYSTEM Refer to clinic/hospital department * (ABNORMAL) POC GLUCOSE (01/08/2006 9:26 PM CDT) GLUCOSE POC 133(H) 65 - 109 mg/dL INTERFACE SYSTEM 01/08/2006 9:26 PM CDT José Fine MD POINT OF CARE TESTING Final Result Performing Organization Address [facility] Phone Number INTERFACE SYSTEM Refer to clinic/hospital department * (ABNORMAL) POC GLUCOSE (01/08/2006 5:25 PM CDT) GLUCOSE POC 125(H) 65 - 109 mg/dL INTERFACE SYSTEM 01/08/2006 5:25 PM CDT José Fine MD POINT OF CARE TESTING Final Result Performing Organization Address [facility] Phone Number INTERFACE SYSTEM Refer to clinic/hospital department * (ABNORMAL) POC GLUCOSE (01/08/2006 11:50 AM CDT) GLUCOSE POC 122(H) 65 - 109 mg/dL INTERFACE SYSTEM 01/08/2006 11:5 0 AM CDT us José Fine MD POINT OF CARE TESTING Final Result Performing Organization Address [facility] Phone Number INTERFACE SYSTEM Refer to clinic/hospital department * (ABNORMAL) POC GLUCOSE (01/08/2006 5:35 AM CDT) GLUCOSE POC 128(H) 65 - 109 mg/dL INTERFACE SYSTEM 01/08/2006 5:35 AM CDT us José Fine MD POINT OF CARE TESTING Final Result Performing Organization Address [facility] Phone Number INTERFACE SYSTEM Refer to clinic/hospital department * (ABNORMAL) POC GLUCOSE (01/07/2006 8:48 PM CDT) GLUCOSE POC 124(H) 65 - 109 mg/dL INTERFACE SYSTEM 01/07/2006 8:48 PM CDT us José Fine MD POINT OF CARE TESTING Final Result Performing Organization Address [facility] Phone Number INTERFACE SYSTEM Refer to clinic/hospital department * (ABNORMAL) POC GLUCOSE (01/07/2006 4:51 PM CDT) GLUCOSE POC 121(H) 65 - 109 mg/dL INTERFACE SYSTEM 01/07/2006 4:51 PM CDT us José Fine MD POINT OF CARE TESTING Final Result Performing Organization Address [facility] Phone Number INTERFACE SYSTEM Refer to clinic/hospital department * (ABNORMAL) POC GLUCOSE (01/07/2006 11:16 AM CDT) GLUCOSE POC 119(H) 65 - 109 mg/dL INTERFACE SYSTEM 01/07/2006 11:1 6 AM CDT us José Fine MD POINT OF CARE TESTING Final Result Performing Organization Address [facility] de Phone Number INTERFACE SYSTEM Refer to clinic/hospital department * (ABNORMAL) POC GLUCOSE (01/07/2006 6:24 AM CDT) GLUCOSE POC 114(H) 65 - 109 mg/dL INTERFACE SYSTEM 01/07/2006 6:24 AM CDT us José Fine MD POINT OF CARE TESTING Final Result Performing Organization Address [facility] de Phone Number INTERFACE SYSTEM [...] Resu lt Performing Organization Address [facility] de Phone Number INTERFACE SYSTEM [...] Resu lt Performing Organization Address [facility] de Phone Number INTERFACE SYSTEM Refer to clinic/hospital department * PHOSPHORUS (01/07/2006 5:30 AM CDT) PHOSPHORUS 3.1 2.5 - 4.5 mg/dL INTERFACE SYSTEM 01/07/2006 5:30 AM CDT Terry Cole MD CHEMISTRY ORDERABLES Final Resul t Performing Organization Address [facility] Phone Number INTERFACE SYSTEM Refer to clinic/hospital department * MAGNESIUM LEVEL (01/07/2006 5:30 AM CDT) MAGNESIUM 2.3 1.5 - 2.5 mg/dL INTERFACE SYSTEM 01/07/2006 5:30 AM CDT Terry Cole MD CHEMISTRY ORDERABLES Final Resul t Performing Organization Address [facility] Phone Number INTERFACE SYSTEM Refer [...] Resul t Performing Organization Address [facility] de Phone Number INTERFACE SYSTEM Refer to clinic/hospital department * (ABNORMAL) POC GLUCOSE (01/07/2006 12:49 AM CDT) GLUCOSE POC 114(H) 65 - 109 mg/dL INTERFACE SYSTEM 01/07/2006 12:4 9 AM CDT us José Fine MD POINT OF CARE TESTING Final Result Performing Organization Address [facility] Co de Phone Number INTERFACE SYSTEM Refer to clinic/hospital department * (ABNORMAL) POC GLUCOSE (01/06/2006 5:40 PM CDT) COMMENT, GLU POC Notified RN INTERFACE SYSTEM GLUCOSE POC 128(H) 65 - 109 mg/dL INTERFACE SYSTEM 01/06/2006 5:40 PM CDT us José Fine MD POINT OF CARE TESTING Final Result Performing Organization Address [facility] Phone Number INTERFACE SYSTEM Refer to clinic/hospital department * (ABNORMAL) POC GLUCOSE (01/06/2006 11:43 AM CDT) COMMENT, GLU POC Notified RN INTERFACE SYSTEM GLUCOSE POC 120(H) 65 - 109 mg/dL INTERFACE SYSTEM 01/06/2006 11:4 3 AM CDT us José Fine MD POINT OF CARE TESTING Final Result Performing Organization Address [facility] de Phone Number INTERFACE SYSTEM Refer to clinic/hospital department * (ABNORMAL) POC GLUCOSE (01/06/2006 5:48 AM CDT) GLUCOSE POC 120(H) 65 - 109 mg/dL INTERFACE SYSTEM 01/06/2006 5:48 AM CDT us José Fine MD POINT OF CARE TESTING Final Result Performing Organization Address [facility] Co de Phone Number INTERFACE [...] Resu lt Performing Organization Address [facility]/ZIP Co de Phone Number INTERFACE SYSTEM Refer [...] Resul t Performing Organization Address [facility] de Phone Number INTERFACE SYSTEM [...] Resul t Performing Organization Address [facility]/ZIP Co de Phone Number INTERFACE SYSTEM Refer to clinic/hospital department * (ABNORMAL) POC GLUCOSE (01/06/2006 1:00 AM CDT) GLUCOSE POC 142(H) 65 - 109 mg/dL INTERFACE SYSTEM 01/06/2006 1:00 AM CDT José Fine MD POINT OF CARE TESTING Final Result Performing Organization Address [facility] Phone Number INTERFACE SYSTEM Refer to clinic/hospital department * (ABNORMAL) POC GLUCOSE (01/05/2006 5:49 PM CDT) GLUCOSE POC 137(H) 65 - 109 mg/dL INTERFACE SYSTEM 01/05/2006 5:49 PM CDT José Fine MD POINT OF CARE TESTING Final Result Performing Organization Address [facility] Phone Number INTERFACE SYSTEM Refer to clinic/hospital department * (ABNORMAL) POC GLUCOSE (01/05/2006 11:57 AM CDT) GLUCOSE POC 133(H) 65 - 109 mg/dL INTERFACE SYSTEM 01/05/2006 11:5 7 AM CDT José Fine MD POINT OF CARE TESTING Final Result Performing Organization Address [facility] Phone Number INTERFACE SYSTEM Refer to clinic/hospital department * (ABNORMAL) POC GLUCOSE (01/05/2006 5:59 AM CDT) GLUCOSE POC 142(H) 65 - 109 mg/dL INTERFACE SYSTEM 01/05/2006 5:59 AM CDT José Fine MD POINT OF CARE TESTING Final Result Performing Organization Address [facility] Phone Number INTERFACE SYSTEM Refer [...] K/uL INTERFACE SYSTEM 01/05/2006 4:00 AM CDT [facility] [employer] HEMATOLOGY ORDERABLES Final Result Performing Organization Address [facility] Phone Number INTERFACE SYSTEM Refer [...] fL INTERFACE SYSTEM 01/05/2006 4:00 AM CDT [employer] HEMATOLOGY ORDERABLES Final Result Performing Organization Address [facility] Phone Number INTERFACE SYSTEM Refer [...] patients with mechanical heart valves or post PA. Pediatric (12 years and under): 1.5 - [...] for unfractionated heparin 01/05/2006 4:00 AM CDT [employer] HEMATOLOGY ORDERABLES Final Result Performing Organization Address [facility] Phone Number INTERFACE SYSTEM Refer to clinic/hospital department * PHOSPHORUS (01/05/2006 4:00 AM CDT) PHOSPHORUS 2.9 2.5 - 4.5 mg/dL INTERFACE SYSTEM 01/05/2006 4:00 AM CDT Luis Eduardo [employer] CHEMISTRY ORDERABLES Final R esult Performing Organization Address [facility] Phone Number INTERFACE SYSTEM Refer to clinic/hospital department * MAGNESIUM LEVEL (01/05/2006 4:00 AM CDT) MAGNESIUM 2.2 1.5 - 2.5 mg/dL INTERFACE SYSTEM 01/05/2006 4:00 AM CDT [employer] CHEMISTRY ORDERABLES Final R esult Performing Organization Address [facility] Phone Number INTERFACE SYSTEM Refer [...] R esult Performing Organization Address [facility] Phone Number INTERFACE SYSTEM Refer to clinic/hospital department * (ABNORMAL) POC GLUCOSE (01/04/2006 11:41 PM CDT) GLUCOSE POC 140(H) 65 - 109 mg/dL INTERFACE SYSTEM 01/04/2006 11:4 1 PM CDT us José Fine MD POINT OF CARE TESTING Final Result Performing Organization Address [facility] Phone Number INTERFACE SYSTEM Refer to clinic/hospital department * (ABNORMAL) POC GLUCOSE (01/04/2006 5:43 PM CDT) GLUCOSE POC 156(H) 65 - 109 mg/dL INTERFACE SYSTEM 01/04/2006 5:43 PM CDT us José Fine MD POINT OF CARE TESTING Final Result Performing Organization Address [facility] Phone Number INTERFACE SYSTEM Refer to clinic/hospital department * (ABNORMAL) POC GLUCOSE (01/04/2006 11:37 AM CDT) GLUCOSE POC 175(H) 65 - 109 mg/dL INTERFACE SYSTEM 01/04/2006 11:3 7 AM CDT us José Fine MD POINT OF CARE TESTING Final Result Performing Organization Address [facility] Phone Number INTERFACE SYSTEM Refer to clinic/hospital department * (ABNORMAL) POC GLUCOSE (01/04/2006 6:11 AM CDT) GLUCOSE POC 183(H) 65 - 109 mg/dL INTERFACE SYSTEM 01/04/2006 6:11 AM CDT José Fine MD POINT OF CARE TESTING Final Result Performing Organization Address [facility] Phone Number INTERFACE SYSTEM Refer [...] ORDERABLES F inal Result Performing Organization Address [facility] Phone Number INTERFACE SYSTEM Refer [...] patients with mechanical heart valves or post PA. Pediatric (12 years and under): 1.5 - [...] ORDERABLES F inal Result Performing Organization Address [facility] Phone Number INTERFACE SYSTEM Refer to clinic/hospital department * PHOSPHORUS (01/04/2006 4:20 AM CDT) PHOSPHORUS 2.5 2.5 - 4.5 mg/dL INTERFACE SYSTEM 01/04/2006 4:20 AM CDT us Rayray Wilcox MD CHEMISTRY ORDERABLES Fi nal Result Performing Organization Address [facility] Phone Number INTERFACE SYSTEM Refer to clinic/hospital department * MAGNESIUM LEVEL (01/04/2006 4:20 AM CDT) MAGNESIUM 2.0 1.5 - 2.5 mg/dL INTERFACE SYSTEM 01/04/2006 4:20 AM CDT Rayray Wilcox MD CHEMISTRY ORDERABLES Fi nal Result Performing Organization Address [facility] Phone Number INTERFACE SYSTEM Refer [...] Re sult Performing Organization Address [facility]/ZIP Co de Phone Number INTERFACE SYSTEM Refer to clinic/hospital department * (ABNORMAL) POC GLUCOSE (01/04/2006 12:25 AM CDT) GLUCOSE POC 188(H) 65 - 109 mg/dL INTERFACE SYSTEM 01/04/2006 12:2 5 AM CDT José Fine MD POINT OF CARE TESTING Final Result Performing Organization Address [facility] de Phone Number INTERFACE SYSTEM Refer to clinic/hospital department * (ABNORMAL) POC GLUCOSE (01/03/2006 5:25 PM CDT) GLUCOSE POC 177(H) 65 - 109 mg/dL INTERFACE SYSTEM 01/03/2006 5:25 PM CDT José Fine MD POINT OF CARE TESTING Final Result Performing Organization Address [facility] de Phone Number INTERFACE SYSTEM Refer to clinic/hospital department * (ABNORMAL) POC GLUCOSE (01/03/2006 11:34 AM CDT) GLUCOSE POC 148(H) 65 - 109 mg/dL INTERFACE SYSTEM 01/03/2006 11:3 4 AM CDT José Fine MD POINT OF CARE TESTING Final Result Performing Organization Address [facility] de Phone Number INTERFACE SYSTEM [...] ORDERABLES F inal Result Performing Organization Address [facility] Phone Number INTERFACE SYSTEM Refer [...] ORDERABLES F inal Result Performing Organization Address [facility] Phone Number INTERFACE SYSTEM Refer [...] ORDERABLES F inal Result Performing Organization Address [facility] Phone Number INTERFACE SYSTEM Refer [...] patients with mechanical heart valves or post PA. Pediatric (12 years and under): 1.5 - [...] ORDERABLES F inal Result Performing Organization Address [facility] Number INTERFACE SYSTEM Refer to clinic/hospital department * PHOSPHORUS (01/03/2006 10:46 AM CDT) PHOSPHORUS 3.3 2.5 - 4.5 mg/dL INTERFACE SYSTEM 01/03/2006 10:4 6 AM CDT Rayray Wilcox MD CHEMISTRY ORDERABLES Fi nal Result Performing Organization Address [facility] Phone Number INTERFACE SYSTEM Refer to clinic/hospital department * MAGNESIUM LEVEL (01/03/2006 10:46 AM CDT) MAGNESIUM 1.8 1.5 - 2.5 mg/dL INTERFACE SYSTEM 01/03/2006 10:4 6 AM CDT Rayray Wilcox MD CHEMISTRY ORDERABLES Fi nal Result Performing Organization Address [facility] Phone Number INTERFACE SYSTEM Refer [...] CHEMISTRY ORDERABLES nal Result Performing Organization Address [facility] Phone Number INTERFACE SYSTEM Refer [...] patients with mechanical heart valves or post PA. Pediatric (12 years and under): 1.5 - [...] drugs of abuse are available on the [facility] [place] [place] Intranet at: [email or web address] Select: Drugs of Abuse ? [facility] To inquire about any potential cross-reactivity [...] URINE ORDERABLES Final Result Performing Organization Address [facility]/ZIP Co de Phone Number INTERFACE SYSTEM Refer [...]
[2025-04-14 10:44] VITALS: BP 111/56; PULSE 66; RESP 16; TEMP 37; O2SAT 97
--- OUTSIDE RECORDS SUMMARY | 2025-04-14 11:00 | XMS_ITS | Encounter Summary ---
Author Organization [facility] Address [address] [place] [address] Care Team Providers Care Elevator Attendant Name Role Phone Rod Strauss MD Primary Care Provider + [phone] Encounter Details Date Type Department Care Team (Late st Contact Info) Description 03/13/2025 Lab Requisition [facility] [address] [place] [address] Unknown, Provider Social History Tobacco Use Types [...] medical care, and heating? Patient declined 05/31/2024 [facility] Occupat ional Health - Occupational Stress [...] any time in the past 12 m [facility], were you homeless or living in a [facility] (including now)? 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 Answer Date of Assessment Author Yes 06/01/2024 12:21 PM CORPORATE TREASURER Princess Ohara RN * Is person blind or have serious difficulty seeing? Answer Date of Assessment Author No 06/01/2024 12:21 PM CORPORATE TREASURER Princess Ohara RN * Does person have serious difficulty walking/climbing stairs? Answer Date of Assessment Author Yes 06/01/2024 12:21 PM CORPORATE TREASURER Princess Ohara RN * Does person have difficulty dressing/bathing? Answer Date of Assessment Author Yes 06/01/2024 12:21 PM CORPORATE TREASURER Princess Ohara RN * Does person have difficulty doing errands alone? Answer Date of Assessment Author Yes 06/01/2024 12:21 PM CORPORATE TREASURER Princess Ohara RN documented as of this encounter Mental Status * Does person have difficulty concentrating/remembering/making decisions? Answer Entry Date Author No 06/01/2024 12:21 PM CORPORATE TREASURER Princess Ohara RN documented in this encounter Plan of Treatment Upcoming Encounters Date Type Department Care Team (Late st Contact Info) Description 05/14/2025 9:00 AM CORPORATE TREASURER Office Visit [facility] - Urology [address] [place] [address] Rustam Bernabe PA [address] [place] [address] documented as of this encounter [...] - 74 % 03/13/2025 6:26 PM CDT [facility] Lymphocyte % 1(L) 17 - 47 % 03/13/2025 6:26 PM CDT [facility] Monocyte % 7 3 - 11 % 03/13/2025 6:26 PM CDT [facility] Neutrophil Absolute 14.08(H) 1.60 - 7.50 x10E9/L 03/13/2025 6:26 PM CDT [facility] Lymphocyte Absolute 0.15(L) 1.00 - 4.40 x10E9/L 03/13/2025 6:26 PM CDT [facility] Monocyte Absolute 1.07(H) 0.15 - 1.00 x10E9/L 03/13/2025 6:26 PM CDT [facility] RBC Morphology NORMAL 03/13/2025 6:26 PM CDT [facility] Blood BLOOD SPECIMEN / Unknown 03/13/2025 4:40 PM CDT 03/13/2025 5:42 PM CDT us Provider Unknown LAB - HEMATOLOGY ORDERABLES Fin al Result [facility] [address] [place] [address] * (ABNORMAL) COMPREHENSIVE METABOLIC PANEL (03/13/2025 4:40 PM CDT) [facility] Glucose 118(H) 70 - 99 mg/dL 03/13/2025 6:07 PM [facility] Sodium 135(L) 136 - 145 mmol/L 03/13/2025 6:07 PM [facility] Potassium 3.6 3.5 - 5.1 mmol/L 03/13/2025 6:07 PM [facility] Chloride 98 98 - 107 mmol/L 03/13/2025 6:07 PM [facility] CO2 27 22 - 29 mmol/L 03/13/2025 6:07 PM [facility] Calcium 7.7(L) 8.4 - 10.4 mg/dL 03/13/2025 6:07 PM [facility] Anion Gap 10 6 - 16 mmol/L 03/13/2025 6:07 PM [facility] BUN 23 7 - 26 mg/dL 03/13/2025 6:07 PM [facility] Creatinine 0.74 0.72 - 1.25 mg/dL 03/13/2025 6:07 PM [facility] Alkaline Phosphatase 94 40 - 150 U/L 03/13/2025 6:07 PM [facility] ALT 31 6 - 57 U/L 03/13/2025 6:07 PM [facility] AST 39 10 - 48 U/L 03/13/2025 6:07 PM [facility] Protein Total 5.6(L) 6.4 - 8.3 gm/dL 03/13/2025 6:07 PM [facility] Albumin 2.5(L) 3.1 - 4.5 gm/dL 03/13/2025 6:07 PM [facility] Bilirubin Total 0.5 0.2 - 1.2 mg/dL 03/13/2025 6:07 PM [facility] eGFR by CKD-EPI >90 >=90 mL/min/1.7 3 m2 03/13/2025 6:07 PM [facility] Comment:Estimated Glomerular Filtration Rate (eGFR) calculated using the CKD-EPI Creatinine Equation (2020), per the National Kidney Foundation and [employer] Society of Nephrology recommendations. Blood BLOOD SPECIMEN / Unknown Venipuncture / Unknown 03/13/2025 4:40 PM CDT 03/13/2025 5:42 PM CDT us Provider Unknown LAB - CHEMISTRY ORDERABLES Johanne triny Result [facility] [address] [place] [address] * (ABNORMAL) CBC WITH DIFFERENTIAL (03/13/2025 4:40 PM CDT) WBC 15.3(H) 4.0 - 10.7 x10E9/L 03/13/2025 6:26 PM CDT [facility] RBC Count 2.83(L) 4.30 - 5.80 x10E12/L 03/13/2025 6:26 PM CDT [facility] Hemoglobin 7.9(L) 13.3 - 17.5 g/dL 03/13/2025 6:26 PM CDT [facility] Hematocrit 25.5(L) 38.7 - 51.1 % 03/13/2025 6:26 PM CDT [facility] MCV 90.1 80.0 - 98.0 fL 03/13/2025 6:26 PM CDT [facility] MCH 27.9 26.7 - 33.6 pg 03/13/2025 6:26 PM CDT [facility] MCHC 31.0(L) 31.7 - 36.3 g/dL 03/13/2025 6:26 PM CDT [facility] RDW-CV 15.7(H) 11.3 - 14.8 % 03/13/2025 6:26 PM CDT [facility] Platelet Count 266 150 - 420 x10E9/L 03/13/2025 6:26 PM CDT [facility] MPV 10.8 7.8 - 11.4 fL 03/13/2025 6:26 PM CDT [facility] Blood BLOOD SPECIMEN / Unknown 03/13/2025 4:40 PM CDT 03/13/2025 5:42 PM CDT us Provider Unknown LAB - HEMATOLOGY ORDERABLES Fin al Result [facility] [address] [place] [address] documented in this encounter Visit Diagnoses Not on filedocumented in this encounter Additional Health Concerns Infection Onset Date Last Indicated Resolved Time ESBL GNR 06/01/2024 06/01/2024 documented as of this encounter Care Teams Elevator Attendant Relationship Specialty Start Date End Date Rod Strauss MD [address] [place] [id number] PCP - General Internal Medicine 06/15/24 documented as of this encounter
--- OUTSIDE RECORDS SUMMARY | 2025-04-14 11:00 | XMS_ITS | Clinical Summary ---
Author Organization [facility] Address [address] [place] [address] Phone Care Team Providers Care Spiral Gear Generator Name Role Phone JATIN STEPHEN, LUAN Carvajal [phone] Reason for Visit and Chief Complaint POST PROCEDURE PHONE CALL Problems Includes: Problems addressed during this encounter and other active Problems All Visits Onset Date Resolved Date Provider Condition S tatus Anemia 07/15/2023 LUAN STEINER MD Active Last Documented On 4 3:17PM ; [facility] Cerebral Infarction 07/15/2023 LUAN Arriaga Active Last Documented On 4 3:19PM ; [facility] Cervicalgia 07/15/2023 LUAN STEINER MD Active Last Documented On 4 3:16PM ; [facility] Constipation 07/15/2023 LUAN STEINER MD Activ e Last Documented On 4 3:17PM ; [facility] Hyperlipidemia 07/15/2023 LUAN STEINER MD Act lottie Last Documented On 4 3:18PM ; [facility] Essential Hypertension 07/15/2023 LUAN NATH MD Active Last Documented On 4 3:20PM ; [facility] Major Depression 07/15/2023 LUAN STEINER MD A ctive Last Documented On 4 3:17PM ; [facility] Neuromuscular Dysfunction of Bladder 07/15/2023 LUAN STEIENR MD Active Last Documented On 4 3:17PM ; [facility] Neurogenic Bowel 07/15/2023 LUAN STEINER MD A ctive Last Documented On 4 3:18PM ; [facility] Quadriplegia 07/15/2023 LUAN STEINER MD Activ e Last Documented On 4 3:16PM ; [facility] Risk: Gastro-esophageal Reflux 07/15/2023 WILLI HAILEY STEINER MD Active Last Documented On 4 3:20PM ; [facility] Urethra Catheter in Place 07/15/2023 LUAN STEINER MD Active Last Documented On 4 3:14PM ; [facility] Urinary Tract Infection 07/15/2023 LUAN GLEASON OM, MD Active Last Documented On 4 3:18PM ; [facility] Plan of Treatment Pending Tests Order Diagnosis Results Due Ordering Provider Pain Management CPT Neurostimulator lead and generator, implantable [facility] compl of implnt elec nstim, generator, init 08/14/23 LUAN STEINER MD Last Documented On 4 2:29PM ; [facility] Pain Management CPT Permanent Spinal Cor d Stimulator Insert/Replace [facility] compl of implnt elec nstim, generator, init 08/14/23 LUAN STEINER MD Last Documented On 4 2:29PM ; [facility] Outside Procedures - Cardiology EKG Essential (primary) hypertension 08/14/23 LUAN STEINER MD Last Documented On 4 1:55PM ; [facility] Assessments Includes: Assessments from this encounter No Assessments Recorded Medical Equipment - Implanted Devices Includes: Current Devices No Medical Equipment Recorded Medications Includes: Medications discussed during this encounter and other current Medications Current Medications (continue as prescribed) hydrALAZINE HCl 50 MG Oral Tablet 07/15/2023 Provide r: Diagnosis: q 8 hrs prn Last Documented On 07/15/2023 2:59PM By Brooke Brown RN ; [facility] Acidophilus Probiotic Oral Capsule 07/15/2023 Provid er: Diagnosis: Daily Last Documented On 07/15/2023 2:59PM By Brooke Brown RN ; [facility] amLODIPine Besylate 10 MG Oral Tablet 07/15/2023 Pro vider: Diagnosis: Daily Last Documented On 07/15/2023 3:00PM By Brooke Brown RN ; [facility] Ascorbic Acid 500 MG Oral Tablet 07/15/2023 Provider : Diagnosis: Daily Last Documented On 07/15/2023 3:00PM By Brooke Brown RN ; [facility] Aspirin 81 MG Oral Tablet Chewable 07/15/2023 Provid er: Diagnosis: Daily Last Documented On 07/15/2023 3:02PM By Brooke Brown RN ; [facility] Atorvastatin Calcium 80 MG Oral Tablet 07/15/2023 Pr ovider: Diagnosis: Daily Last Documented On 07/15/2023 3:03PM By Brooke Brown RN ; [facility] Baclofen 5 MG Oral Tablet 07/15/2023 Provider: Diagnosis: Daily TID Last Documented On 07/15/2023 3:03PM By Brooke Brown RN ; [facility] Bisacodyl 5 MG Oral Tablet Delayed Release 07/15/2023 Provider: Diagnosis: PRN Last Documented On 07/15/2023 3:03PM By Brooke Brown RN ; [facility] Claritin 10 MG Oral Tablet 07/15/2023 Provider: Diagnosis: Daily Last Documented On 07/15/2023 3:04PM By Brooke Brown RN ; [facility] Cranberry 450 MG Oral Capsule 07/15/2023 Provider: Diagnosis: BID Last Documented On 07/15/2023 3:04PM By Brooke Brown RN ; [facility] Ferrous Sulfate 325 (65 Fe) MG Oral Tablet Delayed Rel ease 07/15/2023 Provider: Diagnosis: Daily Last Documented On 07/15/2023 3:05PM By Brooke Brown RN ; [facility] Fleet Bisacodyl 10 MG/30ML Rectal Enema 07/15/2023 P rovider: Diagnosis: once a day prn Last Documented On 07/15/2023 3:05PM By Brooke Brown RN ; [facility] B Ribcoss-D-Siflh Acid Oral Tablet 07/15/2023 Provid er: Diagnosis: daily 1 mg Last Documented On 07/15/2023 3:06PM By Brooke Brown RN ; [facility] HM Lidocaine Patch 4% External 07/15/2023 Provider: Diagnosis: 5% 2 patches q 12 hrs Last Documented On 07/15/2023 3:07PM By Brooke Brown RN ; [facility] Mineral Oil Oral 07/15/2023 Provider: Diagnosis: TID prn Last Documented On 07/15/2023 3:08PM By Brooke Brown RN ; [facility] Myrbetriq 25 MG Oral Tablet Extended Release 24 Hour 0 07/15/2023 Provider: Diagnosis: Daily Last Documented On 07/15/2023 3:08PM By Brooke Brown RN ; [facility] Simethicone 80 MG Oral Tablet Chewable 07/15/2023 Pr ovider: Diagnosis: BID Last Documented On 07/15/2023 3:09PM By Brooke Brown RN ; [facility] Daily Value Multivitamin Oral Tablet 07/15/2023 Prov ider: Diagnosis: daily Last Documented On 07/15/2023 3:09PM By Brooke Brown RN ; [facility] Metamucil 28% Oral Packet 07/15/2023 Provider: Diagnosis: BID Last Documented On 07/15/2023 3:10PM By Brooke Brown RN ; [facility] Metoprolol Tartrate 25 MG Oral Tablet 07/15/2023 Pro vider: Diagnosis: BID Last Documented On 07/15/2023 3:11PM By Brooke Brown RN ; [facility] Protonix 40 MG Oral Tablet Delayed Release 07/15/2023 Provider: Diagnosis: BID Last Documented On 07/15/2023 3:11PM By Brooke Brown RN ; [facility] Prinivil 10 MG Oral Tablet 07/15/2023 Provider: Diagnosis: 2 tabs once a day Last Documented On 07/15/2023 3:12PM By Brooke Brown RN ; [facility] Anusol-HC 2.5% External Cream 07/15/2023 Provider: Diagnosis: prn Last Documented On 07/15/2023 3:12PM By Brooke Brown RN ; [facility] Naloxone HCl 4 MG/0.1ML Nasal Liquid 07/15/2023 Prov ider: Diagnosis: prn Last Documented On 07/15/2023 3:12PM By Brooke Brown RN ; [facility] Lyrica 100 MG Oral Capsule 07/15/2023 Provider: Diagnosis: BID Last Documented On 07/15/2023 3:27PM By Brooke Brown RN ; [facility] Medications Administered Includes: Administered Medications from this encounter No Administered Medications Recorded Results Includes: Results discussed during this encounter No Results Recorded For Specified Dates History of Present Illness Includes: History of Present Illness from this encounter No History of Present Illness Recorded Social History Description Last Updated Tobacco non-user 07/15/2023 Last Documented On 4 12:25PM ; [facility] No consumption of alcohol 07/15/2023 Last Documented On 4 12:25PM ; [facility] Not using drugs 07/15/2023 Last Documented On 4 12:25PM ; [facility] No recent change in sleep 07/15/2023 Last Documented On 4 12:25PM ; [facility] Smoking Status Unknown Procedures and Surgical History Surgical History Last Updated Pacemaker 07/15/2023 Last Documented On 4 12:25PM ; [facility] Medical History Includes: Medical History addressed during this encounter Description Last Updated Denies a fear of falling. 07/15/2023 Last Documented On 4 12:25PM ; [facility] Has had no fall in the last 12 months. 0 07/15/2023 Last Documented On 4 12:25PM ; [facility] Currently wearing eyeglasses 07/15/2023 Last Documented On 4 12:25PM ; [facility] Moderate to severe pain 07/15/2023 Last Documented On 4 12:25PM ; [facility] No Spinal cord stimulator 07/15/2023 Last Documented On 4 12:25PM ; [facility] Pain Pump 07/15/2023 Last Documented On 4 12:25PM ; [facility] Please list all illnesses/co nditions you have been diagnosed with: Paralyzed 07/15/2023 Last Documented On 4 12:25PM ; [facility] Please list all surgeries: Pain pump 201 4stimuliers are in back 2015 07/15/2023 Last Documented On 4 12:25PM ; [facility] Treatment with TENS unit 07/15/2023 Last Documented On 4 12:25PM ; [facility] Which brand of pacemaker/defibrillator d o you have? Implants 07/15/2023 Last Documented On 4 12:25PM ; [facility] Blood pressure was high 07/15/2023 Last Documented On 4 12:25PM ; [facility] Hypertension 07/15/2023 Last Documented On 4 12:25PM ; [facility] No exposure to a contagious disease 07/05 Last Documented On 4 12:25PM ; [facility] No previous psychiatric treatment 2023 Last Documented On 4 12:25PM ; [facility] Not taking OTC medications 07/15/2023 Last Documented On 4 12:25PM ; [facility] Taking medication for high blood pressur e 07/15/2023 Last Documented On 4 12:25PM ; [facility] Family History Includes: Family History addressed during this encounter Description Last Updated Family history of Arthritis 07/15/2023 Last Documented On 4 12:25PM ; [facility] Maternal history of Arthritis 07/15/2023 Last Documented On 4 12:25PM ; [facility] Review of Systems Includes: Review of Systems from this encounter No Review of Systems Recorded Mental Status Includes: Mental Status from this encounter No Mental Status Recorded Functional Status Includes: Functional Status from this encounter No Functional Status Recorded Physical Exam Includes: Physical Exam from this encounter No Physical Exam Recorded Allergies Includes: Active Allergies Substance Type Reaction Onset Date Resolved Date Statu s tiZANidine HCl Allergy 07/15/2023 Acti ve Last Documented On 4 8:38AM ; [facility] Effexor XR Allergy 07/15/2023 Active Last Documented On 4 8:38AM ; [facility] Bactrim Allergy 07/15/2023 Active Last Documented On 4 8:38AM ; [facility] Encounters Encounter Provider Location Date Check-In Time Check-Out Time Diagnosis POST PROCEDURE PHONE CALL LUAN STEINER MD 08/16/2023 12:23PM 11:59PM Insurance Includes: Active Insurance Policies Plan Name Member ID Group # Subscriber Relationship Effect lottie Dates 1 - [facility] [employer] [id number] JEROME ASKEW Self 2 - [facility] [id number] JEROME ASKEW Self Clinical Notes Includes: Clinical Notes from this encounter * Progress note Date Encounter Last Documented by 08/16/2023 POST PROCEDURE PHONE CALL Last d ocumented on 08/16/2023; 12:27 PM, Brooke Brown RN; [facility] Top of Document Post-Procedural Patient Screening Questionnaire Date of Procedure: 08/13/23 Procedure: SCS battery replacement, pocket revision 1. How have you felt since your last procedure? SCS is working great now, 12/12 pain is from the wheel chair and sitting too much. Improved Same Worse 2. Pain level prior to procedure? 12/12 3. Pain level currently? 12/12 4. How long after procedure did symptoms begin? Denies Same pain but worse New Symptoms ? If new, describe: Improving Staying the same Getting worse 5. Any post procedure issues with injection? Denies Heat Swelling Soreness Redness Streaking Injection site pain Bleeding Discharge/Drainage 6. Are you experiencing new numbness in the groin or saddle area? Yes No 7.New loss of bowel or bladder control? Yes No 8. Are you having any of the following symptoms? Denies Fever Chills Night Sweats Rigors/Shaking Chills Headaches Neck Stiffness Sensitivity to sound New muscle pain/Stiffness Weakness Nausea Vomiting Diarrhea Dizziness Rash Flushing Mood Irritability Blood Pressure changes Blood sugar changes Completed by Kermit Brown RN on 08/16/23 Active Problems & Conditions - Anemia - Cerebral Infarction - Cervicalgia - Constipation - Essential Hypertension - Hyperlipidemia - Major Depression - Neurogenic Bowel - Neuromuscular Dysfunction of Bladder - Quadriplegia - Risk: Gastro-esophageal Reflux - Urethra Catheter in Place - Urinary Tract Infection Current Medication - Acidophilus Probiotic Oral Capsule Daily, 0 days, 0 refills - amLODIPine Besylate 10 MG Oral Tablet Daily, 0 days, 0 refills - Anusol-HC 2.5% External Cream prn, 0 days, 0 refills - Ascorbic Acid 500 MG Oral Tablet Daily, 0 days, 0 refills - Aspirin 81 MG Oral Tablet Chewable Daily, 0 days, 0 refills - Atorvastatin Calcium 80 MG Oral Tablet Daily, 0 days, 0 refills - B Dlmkdei-V-Lptzq Acid Oral Tablet daily 1 mg, 0 days, 0 refills - Baclofen 5 MG Oral Tablet Daily TID, 0 days, 0 refills - Bisacodyl 5 MG Oral Tablet Delayed Release PRN, 0 days, 0 refills - Claritin 10 MG Oral Tablet Daily, 0 days, 0 refills - Cranberry 450 MG Oral Capsule BID, 0 days, 0 refills - [facility] Mineral Oil Oral TID prn, 0 days, 0 refills - Daily Value Multivitamin Oral Tablet daily, 0 days, 0 refills - Ferrous Sulfate 325 (65 Fe) MG Oral Tablet Delayed Release Daily, 0 days, 0 refills - Fleet Bisacodyl 10 MG/30ML Rectal Enema once a day prn, 0 days, 0 refills - HM Lidocaine Patch 4% External 5% 2 patches q 12 hrs, 0 days, 0 refills - hydrALAZINE HCl 50 MG Oral Tablet q 8 hrs prn, 0 days, 0 refills - Lyrica 100 MG Oral Capsule BID, 0 days, 0 refills - Metamucil 28% Oral Packet BID, 0 days, 0 refills - Metoprolol Tartrate 25 MG Oral Tablet BID, 0 days, 0 refills - Myrbetriq 25 MG Oral Tablet Extended Release 24 Hour Daily, 0 days, 0 refills - Naloxone HCl 4 MG/0.1ML Nasal Liquid prn, 0 days, 0 refills - Prinivil 10 MG Oral Tablet 2 tabs once a day, 0 days, 0 refills - Protonix 40 MG Oral Tablet Delayed Release BID, 0 days, 0 refills - Simethicone 80 MG Oral Tablet Chewable BID, 0 days, 0 refills Past Medical/Surgical History Reported: Treatment with TENS unit, Which brand of pacemaker/defibrillator do you have? Implants, Please list all illnesses/conditions you have been diagnosed with: Paralyzed, and Please list all surgeries: Pain pump 2013stimuliers are in back 2014. Medical: No previous psychiatric treatment. Currently wearing eyeglasses, orthopedic history Left Knee Score mild pain Moderate to severe pain, and Hypertension. No Spinal cord stimulator. Pain Pump. Surgical / Procedural: Pacemaker. Medications: Taking medication for high blood pressure. Not taking OTC medications. Tests: Blood pressure was high. Exposure: No exposure to a contagious disease. Physical Trauma: Has had no fall in the last 12 months. and Denies a fear of falling. Social History Tobacco use: Tobacco non-user. Alcohol: No consumption of alcohol. Drug Use: Not using drugs. Habits: No recent change in sleep. Allergies - Bactrim - Effexor XR - tiZANidine HCl Family History Arthritis Maternal: Arthritis Health Reminders - Assess Need for CT Lung Screen satisfied 08/16/2023. - Assess Tobacco Use satisfied 08/16/2023.
--- OUTSIDE RECORDS SUMMARY | 2025-04-14 11:00 | XMS_ITS ---
Author Organization [facility] Address [address] [place] [address] Phone Care Team Providers Care Post Graduate Internship Name Role Phone JATIN STEPHEN, LUAN Carvajal [phone] Problems Includes: Active, inactive, and resolved Problems All Visits Onset Date Resolved Date Provider Condition S tatus Anemia 07/15/2023 LUAN STEINER MD Active Last Documented On 4 3:17PM ; [facility] Cerebral Infarction 07/15/2023 LUAN Arriaga Active Last Documented On 4 3:19PM ; [facility] Cervicalgia 07/15/2023 LUAN STEINER MD Active Last Documented On 4 3:16PM ; [facility] Constipation 07/15/2023 LUAN STEINER MD Activ e Last Documented On 4 3:17PM ; [facility] Hyperlipidemia 07/15/2023 LUAN STEINER MD Act lottie Last Documented On 4 3:18PM ; [facility] Essential Hypertension 07/15/2023 LUAN NATH MD Active Last Documented On 4 3:20PM ; [facility] Major Depression 07/15/2023 LUAN STEIENR MD A ctive Last Documented On 4 3:17PM ; [facility] Neuromuscular Dysfunction of Bladder 07/15/2023 LUAN STEINER MD Active Last Documented On 4 3:17PM ; [facility] Neurogenic Bowel 07/15/2023 LUAN STEINER MD A ctive Last Documented On 4 3:18PM ; [facility] Quadriplegia 07/15/2023 LUAN STEINER MD Activ e Last Documented On 4 3:16PM ; [facility] Risk: Gastro-esophageal Reflux 07/15/2023 DANNIELLE STEINER MD Active Last Documented On 4 3:20PM ; [facility] Urethra Catheter in Place 07/15/2023 LUAN STEINER MD Active Last Documented On 4 3:14PM ; [facility] Urinary Tract Infection 07/15/2023 LUAN GLEASON OM, MD Active Last Documented On 4 3:18PM ; [facility] Plan of Treatment Pending Tests Order Diagnosis Results Due Ordering Provider Pain Management CPT Neurostimulator lead and generator, implantable [facility] compl of implnt elec nstim, generator, init 08/14/23 LUAN STEINER MD Last Documented On 4 2:29PM ; [facility] Pain Management CPT Permanent Spinal Cor d Stimulator Insert/Replace [facility] compl of implnt elec nstim, generator, init 08/14/23 LUAN STEINER MD Last Documented On 4 2:29PM ; [facility] Outside Procedures - Cardiology EKG Essential (primary) hypertension 08/14/23 LUAN STEINER MD Last Documented On 4 1:55PM ; [facility] Assessments Includes: Assessments for all patient encounters Findings Encounter Date Anemia PAIN MANAGEMENT FOLLOW UP with Sarah Beth STEINER MD 08/25/2023 Last Documented On 4 9:05AM ; [facility] Chronic pain PAIN MANAGEMENT FOLLOW UP with Sarah Beth STEINER MD 08/25/2023 Last Documented On 4 9:05AM ; [facility] Essential hypertension PAIN MANAGEMENT FOLLOW UP with LUAN STEINER MD 08/25/2023 Last Documented On 4 9:05AM ; [facility] Mechanical complication of i mplanted electronic neurostimulator generator PAIN MANAGEMENT FOLLOW UP with LUAN STEINER MD 08/25/2023 Last Documented On 4 9:05AM ; [facility] Muscle contracture of multiple sites WOJCIECH N MANAGEMENT FOLLOW UP with LUAN STEINER MD 08/25/2023 Last Documented On 4 9:05AM ; [facility] Pain in thoracic spine PAIN MANAGEMENT FOLLOW UP with LUAN STEINER MD 08/25/2023 Last Documented On 4 9:05AM ; [facility] Right sacroiliitis PAIN MANAGEMENT FOLLOW UP wit jill STEINER MD 08/25/2023 Last Documented On 4 9:05AM ; [facility] Spasms PAIN MANAGEMENT FOLLOW UP with Sarah Beth STEINER MD 08/25/2023 Last Documented On 4 9:05AM ; [facility] Spinal cord injury at the C5 -C7 level with incomplete lesion of the cord PAIN MANAGEMENT FOLLOW UP with LUAN STEINER MD 08/25/2023 Last Documented On 4 9:05AM ; [facility] Anemia PAIN MANAGEMENT NEW CONSULT with LUAN STEINER MD 07/15/2023 Last Documented On 4 5:41PM ; [facility] Chronic pain PAIN MANAGEMENT NEW CONSULT with LUAN STEINER MD 07/15/2023 Last Documented On 4 5:41PM ; [facility] Essential hypertension PAIN MANAGEMENT NEW CONSU LT with LUAN STEINER MD 07/15/2023 Last Documented On 4 5:41PM ; [facility] Mechanical complication of i mplanted electronic neurostimulator generator PAIN MANAGEMENT NEW CONSULT with LUAN STEINER MD 07/15/2023 Last Documented On 4 5:41PM ; [facility] Muscle contracture of multiple sites WOJCIECH N MANAGEMENT NEW CONSULT with LUAN STEINER MD 07/15/2023 Last Documented On 4 5:41PM ; [facility] Pain in thoracic spine PAIN MANAGEMENT NEW CONSU LT with LUAN STEINER MD 07/15/2023 Last Documented On 4 5:41PM ; [facility] Right sacroiliitis PAIN MANAGEMENT NEW CONSULT w germán STEINER MD 07/15/2023 Last Documented On 4 5:41PM ; [facility] Spasms PAIN MANAGEMENT NEW CONSULT with LUAN STEINER MD 07/15/2023 Last Documented On 4 5:41PM ; [facility] Spinal cord injury at the C5 -C7 level with incomplete lesion of the cord PAIN MANAGEMENT NEW CONSULT with LUAN STEINER MD 07/15/2023 Last Documented On 4 5:41PM ; [facility] Medical Equipment - Implanted Devices Includes: Current and historical Devices No Medical Equipment Recorded Medications Includes: Current and historical Medications Current Medications (continue as prescribed) hydrALAZINE HCl 50 MG Oral Tablet 07/15/2023 Provide r: Diagnosis: q 8 hrs prn Last Documented On 07/15/2023 2:59PM By Brooke Brown RN ; [facility] Acidophilus Probiotic Oral Capsule 07/15/2023 Provid er: Diagnosis: Daily Last Documented On 07/15/2023 2:59PM By Brooke Brown RN ; [facility] amLODIPine Besylate 10 MG Oral Tablet 07/15/2023 Pro vider: Diagnosis: Daily Last Documented On 07/15/2023 3:00PM By Brooke Brown RN ; [facility] Ascorbic Acid 500 MG Oral Tablet 07/15/2023 Provider : Diagnosis: Daily Last Documented On 07/15/2023 3:00PM By Brooke Brown RN ; [facility] Aspirin 81 MG Oral Tablet Chewable 07/15/2023 Provid er: Diagnosis: Daily Last Documented On 07/15/2023 3:02PM By Brooke Brown RN ; [facility] Atorvastatin Calcium 80 MG Oral Tablet 07/15/2023 Pr ovider: Diagnosis: Daily Last Documented On 07/15/2023 3:03PM By Brooke Brown RN ; [facility] Baclofen 5 MG Oral Tablet 07/15/2023 Provider: Diagnosis: Daily TID Last Documented On 07/15/2023 3:03PM By Brooke Brown RN ; [facility] Bisacodyl 5 MG Oral Tablet Delayed Release 07/15/2023 Provider: Diagnosis: PRN Last Documented On 07/15/2023 3:03PM By Brooke Brown RN ; [facility] Claritin 10 MG Oral Tablet 07/15/2023 Provider: Diagnosis: Daily Last Documented On 07/15/2023 3:04PM By Brooke Brown RN ; [facility] Cranberry 450 MG Oral Capsule 07/15/2023 Provider: Diagnosis: BID Last Documented On 07/15/2023 3:04PM By Brooke Brown RN ; [facility] Ferrous Sulfate 325 (65 Fe) MG Oral Tablet Delayed Rel ease 07/15/2023 Provider: Diagnosis: Daily Last Documented On 07/15/2023 3:05PM By Brooke Brown RN ; [facility] Fleet Bisacodyl 10 MG/30ML Rectal Enema 07/15/2023 P rovider: Diagnosis: once a day prn Last Documented On 07/15/2023 3:05PM By Brooke Brown RN ; [facility] B Ctgvimv-P-Vwpig Acid Oral Tablet 07/15/2023 Provid er: Diagnosis: daily 1 mg Last Documented On 07/15/2023 3:06PM By Brooke Brown RN ; [facility] HM Lidocaine Patch 4% External 07/15/2023 Provider: Diagnosis: 5% 2 patches q 12 hrs Last Documented On 07/15/2023 3:07PM By Brooke Brown RN ; [facility] Mineral Oil Oral 07/15/2023 Provider: Diagnosis: TID prn Last Documented On 07/15/2023 3:08PM By Brooke Brown RN ; [facility] Myrbetriq 25 MG Oral Tablet Extended Release 24 Hour 0 07/15/2023 Provider: Diagnosis: Daily Last Documented On 07/15/2023 3:08PM By Brooke Brown RN ; [facility] Simethicone 80 MG Oral Tablet Chewable 07/15/2023 Pr ovider: Diagnosis: BID Last Documented On 07/15/2023 3:09PM By Brooke Brwon RN ; [facility] Daily Value Multivitamin Oral Tablet 07/15/2023 Prov ider: Diagnosis: daily Last Documented On 07/15/2023 3:09PM By Brooke Brown RN ; [facility] Metamucil 28% Oral Packet 07/15/2023 Provider: Diagnosis: BID Last Documented On 07/15/2023 3:10PM By Brooke Brown RN ; [facility] Metoprolol Tartrate 25 MG Oral Tablet 07/15/2023 Pro vider: Diagnosis: BID Last Documented On 07/15/2023 3:11PM By Brooke Brown RN ; [facility] Protonix 40 MG Oral Tablet Delayed Release 07/15/2023 Provider: Diagnosis: BID Last Documented On 07/15/2023 3:11PM By Brooke Brown RN ; [facility] Prinivil 10 MG Oral Tablet 07/15/2023 Provider: Diagnosis: 2 tabs once a day Last Documented On 07/15/2023 3:12PM By Brooke Brown RN ; [facility] Anusol-HC 2.5% External Cream 07/15/2023 Provider: Diagnosis: prn Last Documented On 07/15/2023 3:12PM By Brooke Brown RN ; [facility] Naloxone HCl 4 MG/0.1ML Nasal Liquid 07/15/2023 Prov ider: Diagnosis: prn Last Documented On 07/15/2023 3:12PM By Brooke Brown RN ; [facility] Lyrica 100 MG Oral Capsule 07/15/2023 Provider: Diagnosis: BID Last Documented On 07/15/2023 3:27PM By Brooke Brown RN ; [facility] Medications Administered Includes: Administered Medications in patient's chart No Administered Medications Recorded Results Includes: Results from 04/14/2024 through 04/14/2025 No Results Recorded For Specified Dates History of Present Illness History of Present Illness not supported for this document type No History of Present Illness Recorded Social History Description Last Updated Tobacco non-user 07/15/2023 Last Documented On 4 5:41PM ; [facility] No consumption of alcohol 07/15/2023 Last Documented On 4 5:41PM ; [facility] Not using drugs 07/15/2023 Last Documented On 4 5:41PM ; [facility] No recent change in sleep 07/15/2023 Last Documented On 4 5:41PM ; [facility] Smoking Status Unknown Procedures and Surgical History Surgical History Last Updated Pacemaker 07/15/2023 Last Documented On 4 5:41PM ; [facility] Medical History Includes: Medical History in patient's chart Description Last Updated Denies a fear of falling. 07/15/2023 Last Documented On 4 5:41PM ; [facility] Has had no fall in the last 12 months. 0 07/15/2023 Last Documented On 4 5:41PM ; [facility] Currently wearing eyeglasses 07/15/2023 Last Documented On 4 5:41PM ; [facility] Moderate to severe pain 07/15/2023 Last Documented On 4 5:41PM ; [facility] No Spinal cord stimulator 07/15/2023 Last Documented On 4 5:41PM ; [facility] Pain Pump 07/15/2023 Last Documented On 4 5:41PM ; [facility] Please list all illnesses/co nditions you have been diagnosed with: Paralyzed 07/15/2023 Last Documented On 4 5:41PM ; [facility] Please list all surgeries: Pain pump 201 4stimuliers are in back 2015 07/15/2023 Last Documented On 4 5:41PM ; [facility] Treatment with TENS unit 07/15/2023 Last Documented On 4 5:41PM ; [facility] Which brand of pacemaker/defibrillator d o you have? Implants 07/15/2023 Last Documented On 4 5:41PM ; [facility] Blood pressure was high 07/15/2023 Last Documented On 4 5:41PM ; [facility] Hypertension 07/15/2023 Last Documented On 4 5:41PM ; [facility] No exposure to a contagious disease 07/05 Last Documented On 4 5:41PM ; [facility] No previous psychiatric treatment 2023 Last Documented On 4 5:41PM ; [facility] Not taking OTC medications 07/15/2023 Last Documented On 4 5:41PM ; [facility] Taking medication for high blood pressur e 07/15/2023 Last Documented On 4 5:41PM ; [facility] Family History Includes: Family History in patient's chart Description Last Updated Family history of Arthritis 07/15/2023 Last Documented On 4 5:41PM ; [facility] Maternal history of Arthritis 07/15/2023 Last Documented On 4 5:41PM ; [facility] Review of Systems Review of Systems not supported for this document type No Review of Systems Recorded Mental Status Description Memory lapses or loss Functional Status No Functional Status Recorded Physical Exam Physical Exam not supported for this document type No Physical Exam Recorded Allergies Includes: Active, inactive, and resolved Allergies Substance Type Reaction Onset Date Resolved Date Statu s tiZANidine HCl Allergy 07/15/2023 Acti ve Last Documented On 4 8:38AM ; [facility] Effexor XR Allergy 07/15/2023 Active Last Documented On 4 8:38AM ; [facility] Bactrim Allergy 07/15/2023 Active Last Documented On 4 8:38AM ; [facility] Insurance Includes: Active Insurance Policies Plan Name Member ID Group # Subscriber Relationship Effect lottie Dates 1 - [place] [facility] [id number] JEROME Graves [id number] JEROME Graves Clinical Notes Includes: Signed Clinical Notes starting from 07/24/2022 No Clinical Notes Recorded
--- OUTSIDE RECORDS SUMMARY | 2025-04-14 11:00 | XMS_ITS | Clinical Summary ---
Author Organization [facility] Address [address] [place] [address] Care Team Providers Care Boat Cleaner Name Role Phone Rod Strauss MD Primary Care Provider [phone] Source Comments [facility],non-owned Affiliates and Associated Physician Practices is amultiple site organization consisting of ambulatory clinics and hospital sitesin [place], [place], [place] and [place]. This disclosure is being madepursuant to the Care Everywhere program and may not contain all information available regarding this patient. Last updated 18.[facility] Allergies Active Allergy Reactions Criticality Noted Date [...] MV. LVEF >70%. Follows with [facility]. -continue home metoprolol 25mg [...] (05/30/2024): Last Assessment & Plan: H/o L COOK FRY infarct 2019, continue asa/statin Hydronephrosis 05/10/2019 Pyelonephritis [...] that has since passed. Urine cx from [facility] on 05/04 also growing pseudomonas, resistant [...] to reach son and obtained collateral from [facility] - CT Head today. - Fall precautions, [...] Care Team Description 03/13/2025 Lab Requisition [facility] [address] [place] [id number] Unknown, Provider from Last 3 Months Social [...] medical care, and heating? Patient declined 05/31/2024 [facility] - [...] any time in the past 12 [address] [facility], were you homeless or living in a care home (including now)? Patient declined 05/31/2024 Sex and Gender Information Value Date Recorded Sex Assigned at Not on file Legal Sex Male 5:23 PM ORTHOPEDIC NURSE PRACTITIONER Gender Identity Not on file Sexual Orientation Not on file Last Filed Vital Signs Vital Sign Reading Time Taken Comments Blood Pressure 135/77 06/15/2024 11:48 AM ORTHOPEDIC NURSE PRACTITIONER Pulse 74 06/15/2024 11:48 AM ORTHOPEDIC NURSE PRACTITIONER Temperature 36.4 C (97.6 F) 06/15/2024 8:35 AM ORTHOPEDIC NURSE PRACTITIONER Respiratory Rate 16 06/15/2024 11:48 AM ORTHOPEDIC NURSE PRACTITIONER Oxygen Saturation 97% 06/15/2024 11:48 AM ORTHOPEDIC NURSE PRACTITIONER Inhaled Oxygen Concentration 40% 06/04/2024 9 :43 AM ORTHOPEDIC NURSE PRACTITIONER Weight 88.5 kg (195 lb) 06/15/2024 8:35 AM ORTHOPEDIC NURSE PRACTITIONER Height 190.5 cm (6' 3) 06/15/2024 8:35 AM ORTHOPEDIC NURSE PRACTITIONER Body Mass Index 24.37 06/15/2024 8:35 AM ORTHOPEDIC NURSE PRACTITIONER Plan of Treatment Upcoming Encounters Date Type Department Care Team (Late st Contact Info) Description 05/14/2025 9:00 AM ORTHOPEDIC NURSE PRACTITIONER Office Visit [facility] - Urology [address] [place] [address] Rustam Bernabe PA [address] [place] [address] Health Maintenance Due Date Last [...] this topic Medical Devices Implanted Type Area Engine Maintenance Mechanic Device Identifier Shelf Expiration Date Model / Serial / Lot Synchromed Iii Pump Implanted:Qty: 1 on 06/04/2024 by Deshawn Schultz MD at [facility] Left: Abdomen [employer] 08/18/2025 8667-40 / [id number] / Ascenda Implanted:Qty: 1 on 06/04/2024 by Deshawn Schultz MD at [facility] Left: Abdomen [employer] 12/14/2024 [id number] / / [id number] Procedures Procedure Name Priority Date/Time Associated Diagnosis Comments DIFFERENTIAL MANUAL STAT 03/13/2025 4 :40 PM CDT COMPREHENSIVE METABOLIC PANEL STAT 03/13/2025 4:40 PM CDT CBC W AUTO DIFFERENTIAL STAT 03/13/2025 4:40 PM CDT HEPATITIS C AB SCREEN RFLX NAAT QUANT STAT 06/06/2024 11:49 AM ORTHOPEDIC NURSE PRACTITIONER from Last 3 Months or Most Recently [...] 1.00 x10E9/L 03/13/2025 6:26 PM CDT [facility] RBC Morphology NORMAL 03/13/2025 6:26 PM CDT [facility] Blood BLOOD SPECIMEN / Unknown 03/13/2025 4:40 PM CDT 03/13/2025 5:42 PM CDT us Provider Unknown LAB - HEMATOLOGY ORDERABLES Fin al Result [facility] [address] [place] [address] * (ABNORMAL) CBC WITH DIFFERENTIAL (03/13/2025 4:40 PM CDT) WBC 15.3(H) 4.0 - 10.7 x10E9/L 03/13/2025 6:26 PM CDT [facility] RBC Count 2.83(L) 4.30 - 5.80 x10E12/L 03/13/2025 6:26 PM CDT [facility] Hemoglobin 7.9(L) 13.3 - 17.5 g/dL 03/13/2025 6:26 PM CDT [facility] Hematocrit 25.5(L) 38.7 - 51.1 % 03/13/2025 6:26 PM T [facility] MCV 90.1 80.0 - 98.0 fL 03/13/2025 6:26 PM CDT [facility] MCH 27.9 26.7 - 33.6 pg 03/13/2025 6:26 PM CDT [facility] MCHC 31.0(L) 31.7 - 36.3 g/dL 03/13/2025 6:26 PM CDT [facility] RDW-CV 15.7(H) 11.3 - 14.8 % 03/13/2025 6:26 PM CDT [facility] Platelet Count 266 150 - 420 x10E9/L 03/13/2025 6:26 PM CDT [facility] MPV 10.8 7.8 - 11.4 fL 03/13/2025 6:26 PM CDT [facility] Blood BLOOD SPECIMEN / Unknown 03/13/2025 4:40 PM CDT 03/13/2025 5:42 PM CDT us Provider Unknown LAB - HEMATOLOGY ORDERABLES Fin al Result [facility] [address] [place] [address] * (ABNORMAL) COMPREHENSIVE METABOLIC PANEL (03/13/2025 4:40 PM CDT) [facility] Glucose 118(H) 70 - 99 mg/dL 03/13/2025 6:07 PM CDT [facility] Sodium 135(L) 136 - 145 mmol/L 03/13/2025 6:07 PM CDT [facility] Potassium 3.6 3.5 - 5.1 mmol/L 03/13/2025 6:07 PM [facility] Chloride 98 98 - 107 mmol/L 03/13/2025 6:07 PM [facility] CO2 27 22 - 29 mmol/L 03/13/2025 6:07 PM [facility] Calcium 7.7(L) 8.4 - 10.4 mg/dL 03/13/2025 6:07 PM [facility] Anion Gap 10 6 - 16 mmol/L 03/13/2025 6:07 PM CDT [facility] BUN 23 7 - 26 mg/dL 03/13/2025 6:07 PM CDT [facility] Creatinine 0.74 0.72 - 1.25 mg/dL 03/13/2025 6:07 PM [facility] Alkaline Phosphatase 94 40 - 150 U/L 03/13/2025 6:07 PM [facility] ALT 31 6 - 57 U/L 03/13/2025 6:07 PM [facility] AST 39 10 - 48 U/L 03/13/2025 6:07 PM [facility] Protein Total 5.6(L) 6.4 - 8.3 gm/dL 03/13/2025 6:07 PM [facility] Albumin 2.5(L) 3.1 - 4.5 gm/dL 03/13/2025 6:07 PM [facility] Bilirubin Total 0.5 0.2 - 1.2 mg/dL 03/13/2025 6:07 PM CDT [facility] eGFR by CKD-EPI >90 >=90 mL/min/1.7 3 m2 03/13/2025 6:07 PM CDT [facility] Comment:Estimated Glomerular Filtration Rate (eGFR) calculated using the CKD-EPI Creatinine Equation (2020), per the National Kidney Foundation and [place] [employer]ph[employer] recommendations. Blood BLOOD SPECIMEN / Unknown Venipuncture / Unknown 03/13/2025 4:40 PM CDT 03/13/2025 5:42 PM CDT Provider Unknown LAB - CHEMISTRY ORDERABLES Johanne l Result Performing Organization Address City/[facility]/ZIP Co de Phone Number [facility] [address] [place] [address] * HEPATITIS C AB SCREEN RFLX NAAT QUANT (06/06/2024 11:49 AM ORTHOPEDIC NURSE PRACTITIONER) Hepatitis C Antibody Non-react lottie Non-reac tive 06/06/2024 1:01 PM ORTHOPEDIC NURSE PRACTITIONER [facility] Comment:Hepatitis C Antibody screen indicates no serologic evidence of past or current infection with Hepatitis C Virus. Patients with unexplained liver disease who are immunocompromised or suspected of having acute Hepatitis C infection may benefit from Nucleic Acid Test (NEIDA) for Hepatitis C Viral RNA to confirm Hepatitis C status. Blood BLOOD SPECIMEN / Unknown Lab Venipuncture / Unknown 06/06/2024 11:49 AM ORTHOPEDIC NURSE PRACTITIONER 06/06/2024 12:05 PM ORTHOPEDIC NURSE PRACTITIONER Salena Griffin FURNITURE ASSEMBLER-MANAGER CLINICAL RESEARCH LAB - CHEMISTRY ORDERABLES F inal Result [facility] [address] [place] [id number] [phone] from Last 3 Months or Most Recently Relevant to Health Maintenance Additional Health Concerns Infection Onset Date Last Indicated ESBL GNR 06/01/2024 06/01/2024 Insurance [facility] [place] [id number] MEDICARE Advance Directives * Full Code (Latest Code Status on File) Date Activated Date Inactivated Comments 05/31/2024 11:27 PM 06/09/2024 8:37 PM Care Teams Boat Cleaner Relationship Specialty Start Date End Date Rod Strauss MD [address] [place] [id number] PCP - General Internal Medicine 06/15/24
--- OUTSIDE RECORDS SUMMARY | 2025-04-14 11:00 | XMS_ITS | Encounter Summary ---
Author Organization [facility] Address [address] [place] [address] Care Team Providers Care Winery Cellar Hand Name Role Phone Unavailable Primary Care Provider Unavailabl e Encounter Details Date Type Department Care Team (Late st Contact Info) Description 01/13/2006 Outpatient Historical [facility] Supp Svcs Blood Flow [address] [place] [address] Dillan Henry MD NO ADDRESS ON FILE Social History Tobacco Use Types Packs/Day Years Used Date Smoking Tobacco: Never Assessed Sex and Gender Information Value Date Recorded Sex Assigned at Not on file Legal Sex Male 3:46 AM CITY DESIGNER Gender Identity Not on file Sexual Orientation Not on file documented as of this encounter Plan of Treatment Not on file documented as of this encounter Visit Diagnoses Not on filedocumented in this encounter
--- OUTSIDE RECORDS SUMMARY | 2025-04-14 11:00 | XMS_ITS | Clinical Summary ---
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 03/03/2025 10:44 PM CDT PHOSPHORUS Timed 03/03/2025 10:44 PM CDT MAGNESIUM Timed 03/03/2025 10:44 PM CDT BASIC METABOLIC PANEL Routine 03/03/2025 10:44 PM CDT CBC WITHOUT DIFFERENTIAL Routine 03/03/2025 10:44 PM CDT EGFR Routine 03/02/2025 11:52 PM CDT BASIC METABOLIC PANEL Routine 03/02/2025 11:52 PM CDT CBC WITHOUT DIFFERENTIAL Routine 03/02/2025 11:52 PM CDT PHOSPHORUS Timed 03/02/2025 11:52 PM CDT MAGNESIUM Timed 03/02/2025 11:52 PM CDT CBC WITHOUT DIFFERENTIAL Routine 03/02/2025 11:52 PM CDT US VEIN DUPLEX LOWER EXTREMITY BILATERAL COMPLETE IP Routine 03/02/2025 4:55 PM CDT POC BLOOD GAS AND CHEMISTRIES, VENOUS Routine 03/02/2025 1:56 PM CDT TISSUE AEROBIC AND ANAEROBIC CULTURE AND GRAM STAIN Routine 03/02/2025 11:43 AM CDT DEBRIDEMENT - SACRUM/ISCHIUM 03/02/2025 11:06 AM CDT Wound of sacral region, initial encounter CONTINUOUS VIDEO EEG Routine 03/02/2025 9:46 AM CDT TRANSTHORACIC ECHO (TTE) COMPLETE W DOPPLER/CF W CONTRAST W BUBBLE ED Urgent/IP Urgent 03/02/2025 8:43 AM CDT PREPARE RBC STAT 03/02/2025 8:[address] HEAD WO CONTRAST Timed 03/02/2025 4 :11 AM CDT ANTIBODY IDENTIFICATION Routine 03/01/2025 9:23 PM CDT EGFR Routine 03/01/2025 8:02 PM CDT PROTIME-INR Routine 03/01/2025 8:02 PM CDT APTT Routine 03/01/2025 8:02 PM CDT TYPE AND SCREEN Timed 03/01/2025 8:02 PM CDT BASIC METABOLIC PANEL Routine 03/01/2025 8:02 PM CDT CBC WITHOUT DIFFERENTIAL Routine 03/01/2025 8:02 PM CDT TEST CONDUCTOR EVALUATE AND TREAT FIBEROPTIC ENDOSCOPIC SWALLOW Routine 03/01/2025 11:34 AM CDT CBC WITHOUT DIFFERENTIAL STAT 03/01/2025 5:[address] HEAD WO CONTRAST Timed 03/01/2025 5 :22 AM CDT RESPIRATORY PATHOGEN PANEL STAT 03/01/2025 3:09 AM CDT BLOOD CULTURE STAT 03/01/2025 3:09 AM CDT BLOOD CULTURE STAT 03/01/2025 3:09 AM CDT URINALYSIS AND REFLEX TO MICROSCOPIC AND CULTURE STAT 03/01/2025 3:09 AM CDT ANTIBODY IDENTIFICATION STAT 02/28/2025 8:47 PM CDT ECG 12-LEAD STAT 02/28/2025 8:02 PM CDT XR CHEST 1 VIEW IP Routine 02/28/2025 7:55 PM CDT HEMOGLOBIN A1C STAT 02/28/2025 7:42 PM CDT EGFR STAT 02/28/2025 7:42 PM CDT TROPONIN I HIGH-SENSITIVITY SERIES (BASELINE, 2HR, 4HR, 6HR) Routine 02/28/2025 7:42 PM CDT BLOOD GAS, ARTERIAL STAT 02/28/2025 7 :42 PM CDT PROTIME-INR STAT 02/28/2025 7:42 PM CDT APTT STAT 02/28/2025 7:42 PM CDT TYPE AND SCREEN STAT 02/28/2025 7:42 PM CDT CBC WITHOUT DIFFERENTIAL STAT 02/28/2025 7:42 PM CDT PHOSPHORUS STAT 02/28/2025 7:42 PM CDT MAGNESIUM STAT 02/28/2025 7:42 PM CDT COMPREHENSIVE METABOLIC PANEL STAT 02/28/2025 7:42 PM CDT LIPID PANEL Routine 02/28/2025 7:42 PM CDT POCT GLUCOSE DEVICE Routine 02/28/2025 7 :27 PM CDT CTA/CTP RAPID STROKE Critical/Life-T hreatening 02/28/2025 7:13 PM CDT EGFR STAT 02/28/2025 6:50 PM CDT DIFFERENTIAL AUTO STAT 02/28/2025 6:5 0 PM CDT LACTATE, WHOLE BLOOD STAT 02/28/2025 6:50 PM CDT BLOOD GAS, VENOUS STAT 02/28/2025 6:5 0 PM CDT CBC WITH AUTO DIFFERENTIAL STAT 02/28/2025 6:50 PM CDT BASIC METABOLIC PANEL STAT 02/28/2025 6:50 PM CDT HEPATIC FUNCTION PANEL STAT 6:50 PM CDT MAGNESIUM STAT 02/28/2025 6:50 PM CDT ARTERIAL BLOOD GAS W/LACTATE Routine 02/28/2025 6:49 PM CDT POCT GLUCOSE DEVICE Routine 02/28/2025 6 :30 PM CDT XR SPINE LUMBAR 2 OR 3 VIEWS IP Routine 02/28/2025 9:55 AM CDT XR SACRUM COCCYX 2 OR MORE VIEWS IP Routine 02/28/2025 9:55 AM CDT EGFR Timed 02/27/2025 10:55 PM CDT DIFFERENTIAL AUTO Routine 02/27/2025 10: 55 PM CDT CBC WITH AUTO DIFFERENTIAL Routine 02/27/2025 10:55 PM CDT BASIC METABOLIC PANEL Timed 02/27/2025 10:55 PM CDT POCT GLUCOSE DEVICE Routine 02/27/2025 1 1:31 AM CDT EGFR Timed 02/26/2025 11:33 PM CDT DIFFERENTIAL AUTO Routine 02/26/2025 11: 33 PM CDT CBC WITH AUTO DIFFERENTIAL Routine 02/26/2025 11:33 PM CDT BASIC METABOLIC PANEL Timed 02/26/2025 11:33 PM CDT POTASSIUM, URINE, RANDOM STAT 02/26/2025 4:41 PM CDT CREATININE, URINE, RANDOM STAT 02/26/2025 4:41 PM CDT CHLORIDE, URINE, RANDOM STAT 02/26/2025 4:41 PM CDT BASIC METABOLIC PANEL Routine 02/26/2025 6:13 AM CDT EGFR Routine 02/26/2025 6:13 AM CDT DIFFERENTIAL AUTO Routine 02/26/2025 6:1 3 AM CDT MAGNESIUM Routine 02/26/2025 6:13 AM CDT CBC WITH AUTO DIFFERENTIAL Routine 02/26/2025 6:13 AM CDT MAGNESIUM Timed 02/25/2025 10:30 PM CDT EGFR Timed 02/25/2025 10:30 PM CDT BASIC METABOLIC PANEL Timed 02/25/2025 10:30 PM CDT POTASSIUM, WHOLE BLOOD Routine 2:44 PM CDT TROPONIN I HIGH-SENSITIVITY 4-HOUR Timed 02/25/2025 2:14 PM CDT ED BLADDER CATHETERIZATION Routine 02/25/2025 12:13 PM CDT POCT RAPID HIV ANTIBODY COMMUNITY SCREENING-CHELSEA ELIGIBLE Routine 02/25/2025 11:20 AM CDT URINALYSIS, MICROSCOPIC ONLY STAT 02/25/2025 11:19 AM CDT URINE CULTURE STAT 02/25/2025 11:19 AM CDT URINALYSIS AND REFLEX TO MICROSCOPIC AND CULTURE STAT 02/25/2025 11:19 AM CDT MAGNESIUM STAT 02/25/2025 10:01 AM CDT PHOSPHORUS STAT 02/25/2025 10:01 AM CDT EGFR STAT 02/25/2025 10:01 AM CDT DIFFERENTIAL AUTO STAT 02/25/2025 10: 01 AM CDT TROPONIN I HIGH-SENSITIVITY SERIES (BASELINE, 2HR, 4HR, 6HR) STAT 02/25/2025 10:01 AM CDT SEPSIS LACTATE WITH REFLEX STAT 02/25/2025 10:01 AM CDT COMPREHENSIVE METABOLIC PANEL STAT 02/25/2025 10:01 AM CDT CBC WITH AUTO DIFFERENTIAL STAT 02/25/2025 10:01 AM CDT BLOOD CULTURE STAT 02/25/2025 10:01 AM CDT BLOOD CULTURE STAT 02/25/2025 10:01 AM CDT ECG 12-LEAD Routine 02/25/2025 9:57 AM CDT XR CHEST 1 VIEW ED 02/25/2025 9:52 AM CDT EGFR Routine 02/18/2025 6:56 PM CDT CBC WITHOUT DIFFERENTIAL Routine 02/18/2025 6:56 PM CDT COMPREHENSIVE METABOLIC PANEL Routine 02/18/2025 6:56 PM CDT MAGNESIUM Routine 02/18/2025 6:56 PM CDT EGFR STAT 02/17/2025 4:32 PM CDT DIFFERENTIAL AUTO STAT 02/17/2025 4:3 2 PM CDT SEPSIS LACTATE WITH REFLEX STAT 02/17/2025 4:32 PM CDT COMPREHENSIVE METABOLIC PANEL STAT 02/17/2025 4:32 PM CDT CBC WITH AUTO DIFFERENTIAL STAT 02/17/2025 4:32 PM CDT BLOOD CULTURE STAT 02/17/2025 4:32 PM CDT BLOOD CULTURE STAT 02/17/2025 4:32 PM CDT URINALYSIS, MICROSCOPIC ONLY STAT 02/17/2025 3:48 PM CDT URINALYSIS AND REFLEX TO MICROSCOPIC AND CULTURE STAT 02/17/2025 3:48 PM CDT URINE CULTURE STAT 02/17/2025 3:48 PM CDT COLONOSCOPY 01/01/2020 8:32 AM CDT from Last 3 Months or Most Recently Relevant to Health Maintenance Results * CT Abdomen Pelvis W Contrast (03/14/2025 7:46 PM CDT) Anatomical Region Laterality Modality Body N/A Computed Tomogra phy 03/14/2025 8:21 PM CDT Narrative 03/14/2025 8:31 PM CDT EXAM DESCRIPTION: CT ABDOMEN PELVIS W CONTRAST REASON FOR STUDY: Abdominal pain, acute, nonlocalized c/o burning and pain to the tip of his penis/ catheter site. Pt has a suprapubic catheter. Pt was supposed to receive antibiotics by PICC at the facility and pt refused and requested to be sent out TECHNIQUE: CT scan of the abdomen and pelvis performed with intravenous and without oral contrast using helical scanning technique with dynamic intravenous contrast injection. Reconstructed coronal and sagittal MPR images reviewed. All images stored on PACS. Automated exposure control was used as a dose optimization technique for this examination. CONTRAST TYPE/DOSE: 75mL of IOVERSOL 350 MG IODINE/ML INTRAVENOUS SYRINGE injected via intravenous COMPARISON: 06/21/2024 FINDINGS: LOWER CHEST: Right costophrenic sulcus atelectasis is likely chronic given the appearance on the prior and the elevated hemidiaphragm. Minimal left base atelectasis. Heart size normal. No effusion. LIVER/BILIARY: Chronic densities above the liver diaphragm unchanged. Hepatic steatosis. Scattered cysts. Biliary tree normal in caliber. GALLBLADDER: Normal. SPLEEN: Normal. PANCREAS: Moderate atrophy. ADRENAL GLANDS: Normal. KIDNEYS/URINARY TRACT: Kidneys and ureters unremarkable. Bladder contracted around suprapubic catheter. Prostate gland normal in size. GI: Stomach and small bowel appear normal. Stool throughout the colon. Normal appendix. OTHER ABDOMINAL/PELVIS: Major vascular structures are grossly patent and normal in caliber. IVC filter. No enlarged lymph node or free fluid. MSK: Moderate lumbar facet arthropathy. Hip and elbow arthritis. Left ischial tuberosity erosion. BODY WALL: Left ischial tuberosity ulcer with surrounding subcutaneous gas. Erosion of the head of the left ischial tuberosity is new from the prior. Breakdown over the coccyx similar to the prior with no evidence of bony erosion. IMPRESSION: 1. 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 2. No specific penile abnormality identified. 3. Chronic findings as above. THIS IS AN ELECTRONICALLY VERIFIED FINAL REPORT 03/14/2025 8:31 PM - Electronically signed by Lai Costa M.D. AR: SANTY Report ID: [id number] Reading Location: [id number] Procedure Note Lai Costa MD - 03/14/2025 EXAM DESCRIPTION: CT ABDOMEN PELVIS W CONTRAST REASON FOR STUDY: Abdominal pain, acute, nonlocalized c/o burning and pain to the tip of his penis/ catheter site. Pt has a suprapubic catheter. Pt was supposed to receive antibiotics by PICC at the facility and pt refused and requested to be sent out TECHNIQUE: CT scan of the abdomen and pelvis performed with intravenousand without oral contrast using helical scanning technique with dynamic intravenous contrast injection. Reconstructed coronal and sagittal MPRimages reviewed. All images stored on PACS. Automated exposure control was usedas a dose optimization technique for this examination. CONTRAST TYPE/DOSE: 75mL of IOVERSOL 350 MG IODINE/ML INTRAVENOUSSYRINGE injected via intravenous COMPARISON: 06/21/2024 FINDINGS: LOWER CHEST: Right costophrenic sulcus atelectasis is likely chronicgiven the appearance on the prior and the elevated hemidiaphragm. Minimal leftbase atelectasis. Heart size normal. No effusion. LIVER/BILIARY: Chronic densities above the liver diaphragm unchanged. Hepatic steatosis. Scattered cysts. Biliary tree normal in caliber. GALLBLADDER: Normal. SPLEEN: Normal. PANCREAS: Moderate atrophy. ADRENAL GLANDS: Normal. KIDNEYS/URINARY TRACT: Kidneys and ureters unremarkable. Bladdercontracted around suprapubic catheter. Prostate gland normal in size. GI: Stomach and small bowel appear normal. Stool throughout the colon. Normal appendix. OTHER ABDOMINAL/PELVIS: Major vascular structures are grossly patent and normal in caliber. IVC filter. No enlarged lymph node or free fluid. MSK: Moderate lumbar facet arthropathy. Hip and elbow arthritis. Left ischial tuberosity erosion. BODY WALL: Left ischial tuberosity ulcer with surrounding subcutaneousgas. Erosion of the head of the left ischial tuberosity is new from the prior. Breakdown over the coccyx similar to the prior with no evidence of bony erosion. IMPRESSION: 1. Left ischial tuberosity osteomyelitis with surrounding soft tissuegas, new from the prior. 2. No specific penile abnormality identified. 3. Chronic findings as above. THIS IS AN ELECTRONICALLY VERIFIED FINAL REPORT 03/14/2025 8:31 PM - Electronically signed by Lai Costa M.D. AR: SANTY Report ID: [id number] Reading Location: [place] [id number] PROCEDURES Final Result * eGFR (03/14/2025 6:17 PM CDT) eGFR >90 >=60 mL/min/1. 73 m2 Comment: [...] of Race in Diagnosing Kidney Disease, JASN 202). The CKD-EPI equation should not be used for patients with unstable renal function and has not been validated in children and those over 70. Current interpretive data was last reviewed 2021. Blood 03/14/2025 6:17 PM CDT 03/14/2025 6:21 PM CDT us Jess LAZAR LAB BLOOD ORDERABLES Final Resu lt [facility] ([place]) [address] [facility] Department [place] [address] * (ABNORMAL) Differential, auto (03/14/2025 6:17 PM CDT) Neutrophil abs 8.24(H) 1.50 - 6.50 K/cumm Imm gran abs 0.03 0.00 - 0.10 K/cumm [facility] ([place]) Lymphocyte abs 0.65(L) 0.80 - 3.30 K/cumm [facility] ([place]) Monocyte abs 1.35(H) 0.20 - 0.80 K/cumm [facility] ([place]) Eosinophil abs 0.16 0.00 - 0.50 K/cumm [facility] ([place]) Basophil abs 0.02 0.00 - 0.10 K/cumm [facility] ([place]) Neutrophil pct 78.9 % [facility] ([place]) Comment: Interpretive Data Percent cell count reference ranges are not reported, since discordance with absolute values may lead to misinterpretation of CBC data. Current Interpretive Data was last revised on 2017. Imm gran pct 0.3 % [facility] ([place]) Comment: Interpretive Data Percent cell count reference ranges are not reported, since discordance with absolute values may lead to misinterpretation of CBC data. Current Interpretive Data was last revised on 2017. Lymphocyte pct 6.2 % [facility] ([place]) Comment: Interpretive Data Percent cell count reference ranges are not reported, since discordance with absolute values may lead to misinterpretation of CBC data. Current Interpretive Data was last revised on 2017. Monocyte pct 12.9 % [facility] ([place]) Comment: Interpretive Data Percent cell count reference ranges are not reported, since discordance with absolute values may lead to misinterpretation of CBC data. Current Interpretive Data was last revised on 2017. Eosinophil pct 1.5 % [facility] ([place]) Comment: Interpretive Data Percent cell count reference ranges are not reported, since discordance with absolute values may lead to misinterpretation of CBC data. Current Interpretive Data was last revised on 2017. Basophil pct 0.2 % [facility] ([place]) Comment: Interpretive Data Percent cell count reference ranges are not reported, since discordance with absolute values may lead to misinterpretation of CBC data. Current Interpretive Data was last revised on 2017. Blood 03/14/2025 6:17 PM CDT 03/14/2025 6:21 PM CDT us Jess LAZAR LAB BLOOD ORDERABLES Final Resu lt [facility] ([place]) [address] [facility] Department [place] [address] * (ABNORMAL) Urinalysis reflex to microscopic and culture Urine, indwelling catheter (03/14/2025 6:17PM CDT) Color, ur Yellow Yellow Clarity, ur Turbid(A) Clear [facility] ([place]) Specific gravity, ur 1.016 1.003 - 1.030 [facility] ([place]) pH, urine 5.5 [facility] ([place]) Comment: Interpretive Data U rine pH is affected by diet, medications, systemic acid-base disturbances, and renal tubular function. pH may affect urinary stone formation. For example, urine pH below 6.0 may help reduce the tendency for calcium phosphate stones and pH greater than 6.0 may reduce the tendency for uric acid stone formation. Source: [facility] [employer] Current Interpretive Data was last revised on 2017 Protein, ur ql 1+(A) Negative [facility] ([place]) Glucose, ur ql Negative Negative [facility] ([place]) Ketones, ur Negative Negative [facility] ([place]) Bilirubin, ur Negative Negative [facility] ([place]) Blood, ur 1+(A) Negative [facility] ([place]) Urobilinogen, ur <2.0 <2.0 mg/dL [facility] ([place]) Nitrite, ur Negative Negative [facility] ([place]) Leukocyte esterase, ur 4+(A) Negative [facility] ([place]) UA reflex comment Reflex to microscopic UA will be performed. [facility] ([place]) Urine, indwelling catheter 03/14/2025 6:17 PM CDT 03/14/2025 6:21 PM CDT us Jess LAZ[facility] LAB MICROBIOLOGY - GENERAL [facility] Final Result Performing Organization Address City/[facility] Co de Phone Number [facility] ([place]) [address] [facility] Department [place] [address] * (ABNORMAL) CBC with auto differential (03/14/2025 6:17 PM CDT) WBC 10.45(H) 3.80 - 9.90 K/cumm Hgb 8.4(L) 13.0 - 17.5 g/dL [facility] ([place]) Hct 26.5(L) 38.9 - 50.3 % [facility] ([place]) Plt 270 150 - 400 K/cumm [facility] ([place]) MPV 10.2 9.1 - 12.3 fL [facility] ([place]) RBC 2.99(L) 4.30 - 5.80 M/cumm [facility] ([place]) MCV 88.6 81.3 - 96.4 fL [facility] ([place]) MCH 28.1 27.1 - 33.3 pg [facility] ([place]) MCHC 31.7(L) 32.3 - 35.7 g/dL [facility] ([place]) RDW CV 15.6(H) 11.1 - 14.9 % [facility] ([place]) RDW SD 50.9(H) 35.7 - 48.1 fL [facility] ([place]) NRBC abs 0.00 0.00 - 0.01 K/cumm [facility] ([place]) Blood 03/14/2025 6:17 PM CDT 03/14/2025 6:21 PM CDT Jess LAZAR LAB BLOOD ORDERABLES Final Resu lt Performing Organization Address City/[facility]/ZIP Co de Phone Number [facility] ([place]) [address] [facility] Department [place] [address] * (ABNORMAL) Urinalysis, microscopic only (03/14/2025 6:17 PM CDT) WBC, ur >50(A) 0 - 5 /HPF RBC, ur 6-10(A) 0 - 2 /HPF [facility] ([place]) Epithelial cells, squamous, ur 1-5 0 - 5 /HPF [facility] ([place]) Bacteria, ur Trace(A) [facility] ([place]) Mucous, ur Present(A) [facility] ([place]) Culture Reflex Comment Reflex to urine culture will be performed. [facility] ([place]) Urine, indwelling catheter 03/14/2025 6:17 PM CDT 03/14/2025 6:21 PM CDT Jess LAZAR LAB URINE ORDERABLES Final Resu lt Performing Organization Address [facility]/ZIP Co de Phone Number [facility] ([place]) [address] [facility] Department [place] [address] * (ABNORMAL) Urine culture Urine, indwelling catheter (03/14/2025 6:17 PM CDT) Report Final Report: Greater than or equal to 100,000 colonies/mL of Staphylococcus aureus Methicillin resistant (MRSA) by penicillin binding protein 2a (PBP2a) testing. Plus growth of clinically insignificant bacterial sandra. (.) Comment:Testing performed by : [facility], [address] [facility], [place]., [address] Organism STAPHYLOCOCCUS AUREUS [facility] ([place]) Organism PLUS GROWTH OF CLINICALLY INSIGNIFICANT SANDRA. [facility] ([place]) Urine, indwelling catheter 03/14/2025 6:17 PM CDT 03/14/2025 9:57 PM CDT Narrative [facility] ([place]) - 03/17/2025 2:55 PM CDT Urine culture reflexed based upon urinalysis results. Testing performed by [facility] ([phone]) Organism Antibiotic Method Susceptibility Staphylococcus aureus Vancomycin INTERPRETATION Susceptible Staphylococcus aureus Ceftaroline INTERPRETATION Susceptible Staphylococcus aureus Trimethoprim with Sulfamethoxazole INTERPRETATION Susceptible Staphylococcus aureus Linezolid INTERPRETATION Susceptible Staphylococcus aureus Doxycycline INTERPRETATION Susceptible Staphylococcus aureus Nitrofurantoin INTERPRETATION Susceptible Staphylococcus aureus Oxacillin INTERPRETATION Resistant Staphylococcus aureus Cefazolin INTERPRETATION Resistant Staphylococcus aureus Ceftriaxone INTERPRETATION Resistant Jess LA[facility] LAB MICROBIOLOGY - GENERAL ANTONIO WALKER Final Result [facility] ([place]) [address] [facility] Department [place] [address] * (ABNORMAL) Comprehensive metabolic panel (03/14/2025 6:17 PM CDT) Sodium 136 135 - 145 mmol/L [facility] ([place]) Potassium, pl 3.5 3.3 - 4.9 mmol/L [facility] ([place]) Chloride 97 97 - 110 mmol/L [facility] ([place]) CO2 29 22 - 32 mmol/L [facility] ([place]) Anion gap 10 2 - 15 mmol/L [facility] ([place]) BUN 20 6 - 25 mg/dL [facility] ([place]) Creatinine 0.67(L) 0.80 - 1.30 mg/dL [facility] ([place]) Glucose 134 70 - 199 mg/dL [facility] ([place]) Comment: Interpretive Data Fasting glucose >/= 126 [...] interpretive data was last revised 2022. Calcium 8.9 8.5 - 10.3 mg/dL [facility] ([place]) Bilirubin, total 0.5 0.1 - 1.2 mg/dL [facility] ([place]) Protein, pl 6.6 6.5 - 8.5 g/dL [facility] ([place]) Albumin 3.2(L) 3.5 - 5.0 g/dL [facility] ([place]) Alk phos 105 40 - 130 Units/L [facility] ([place]) ALT 37 7 - 55 Units/L [facility] ([place]) AST 42 10 - 50 Units/L [facility] ([place]) Blood 03/14/2025 6:17 PM CDT 03/14/2025 6:21 PM CDT us Jess LAZAR LAB BLOOD ORDERABLES Final Resu lt [facility] ([place]) [address] [place] [address] Department [place] [address] * Antibody identification (03/05/2025 12:31 AM CDT) Antibody ID 1 Anti Little e Blood 03/05/2025 12:3 1 AM CDT 03/05/2025 12:32 AM CDT us Marilyn Morgan MD LAB BLOOD BANK TEST ORDERABLES F inal Result [facility] Department [place] [address] * eGFR (03/04/2025 11:12 PM CDT) eGFR >90 >=60 mL/min/1. 73 m2 Comment: [...] interpretive data was last reviewed 2021. Blood 03/04/2025 11:1 2 PM CDT 03/04/2025 11:33 PM CDT Lucy Ho NP LAB BLOOD ORDERABLES Fin al Result Performing Organization Address [facility] Co de Phone Number [facility] Department [place] [address] * (ABNORMAL) CBC without differential (03/04/2025 11:12 PM CDT) WBC 11.79(H) 3.80 - 9.90 K/cumm Hgb 9.1(L) 13.0 - 17.5 g/dL [facility] Hct 29.9(L) 38.9 - 50.3 % [facility] Plt 267 150 - 400 K/cumm [facility] MPV 10.2 9.1 - 12.3 fL [facility] RBC 3.30(L) 4.30 - 5.80 M/cumm [facility] MCV 90.6 81.3 - 96.4 fL [facility] MCH 27.6 27.1 - 33.3 pg [facility] MCHC 30.4(L) 32.3 - 35.7 g/dL [facility] RDW CV 15.9(H) 11.1 - 14.9 % [facility] RDW SD 51.3(H) 35.7 - 48.1 fL [facility] NRBC abs 0.00 0.00 - 0.01 K/cumm [facility] Blood 03/04/2025 11:1 2 PM CDT 03/04/2025 11:33 PM CDT Lucy Ho NP LAB BLOOD ORDERABLES Fin al Result Performing Organization Address City/[facility]/ZIP Co de Phone Number [facility] [place] [address] * (ABNORMAL) Type and screen (03/04/2025 11:12 PM CDT) Pathologist [facility] ABO Rh O Positive Bonifacio, indirect Positive(A) [facility] Blood 03/04/2025 11:1 2 PM CDT 03/04/2025 11:23 PM CDT Narrative [facility] - 03/05/2025 12:32 AM CDT Has the patient had Daratumumab or Isatuximab in the past 6 months?->Unknown Marilyn Morgan MD LAB BLOOD BANK TEST ORDERABLES F inal Result Performing Organization Address [facility] de Phone Number [facility] [place] [address] * (ABNORMAL) Basic metabolic panel (03/04/2025 11:12 PM CDT) Pathologist [facility] Sodium 142 135 - 145 mmol/L Potassium, pl 4.2 3.3 - 4.9 mmol/L [facility] Chloride 100 97 - 110 mmol/L [facility] CO2 35(H) 22 - 32 mmol/L [facility] Anion gap 7 2 - 15 mmol/L [facility] BUN 12 6 - 25 mg/dL [facility] Creatinine 0.81 0.80 - 1.30 mg/dL [facility] Glucose 105 70 - 199 mg/dL [facility] Comment: Interpretive Data Fasting glucose >/= 126 [...] 2022. Calcium 8.8 8.5 - 10.3 mg/dL [facility] Blood 03/04/2025 11:1 2 PM CDT 03/04/2025 11:33 PM CDT Lucy Ho NP LAB BLOOD ORDERABLES Fin al Result Performing Organization Address [facility] Co de Phone Number [facility] [place], [place] [address] * eGFR (03/03/2025 10:44 PM CDT) eGFR >90 >=60 mL/min/1. 73 m2 Comment: [...] interpretive data was last reviewed 2021. Blood 03/03/2025 10:4 4 PM CDT 03/03/2025 11:34 PM CDT Lucy Ho NP LAB BLOOD ORDERABLES Fin al Result Performing Organization Address City/[facility]/ZIP Co de Phone Number [facility] Department [place] [address] * (ABNORMAL) CBC without differential (03/03/2025 10:44 PM CDT) WBC 9.58 3.80 - 9.90 K/cumm Hgb 8.3(L) 13.0 - 17.5 g/dL [facility] Hct 26.4(L) 38.9 - 50.3 % [facility] Plt 263 150 - 400 K/cumm [facility] MPV 10.4 9.1 - 12.3 fL [facility] RBC 2.97(L) 4.30 - 5.80 M/cumm [facility] MCV 88.9 81.3 - 96.4 fL [facility] MCH 27.9 27.1 - 33.3 pg [facility] MCHC 31.4(L) 32.3 - 35.7 g/dL [facility] RDW CV 15.5(H) 11.1 - 14.9 % [facility] RDW SD 49.8(H) 35.7 - 48.1 fL [facility] NRBC abs 0.00 0.00 - 0.01 K/cumm [facility] Blood 03/03/2025 10:4 4 PM CDT 03/03/2025 11:34 PM CDT Lucy Ho HOUSEKEEPING WORKER LAB BLOOD ORDERABLES Fin al Result Performing Organization Address City/[facility]/ZIP Co de Phone Number [facility] [place] [address] * Phosphorus (03/03/2025 10:44 PM CDT) [facility] Phosphorus, pl 3.5 2.3 - 4.5 mg/dL Blood 03/03/2025 10:4 4 PM CDT 03/03/2025 11:33 PM CDT Lucy Ho HOUSEKEEPING WORKER LAB BLOOD ORDERABLES Fin al Result Performing Organization Address City/[facility] Co de Phone Number [facility] [place] [address] * Magnesium (03/03/2025 10:44 PM CDT) [facility] Magnesium 2.3 1.4 - 2.5 mg/dL Blood 03/03/2025 10:4 4 PM CDT 03/03/2025 11:33 PM CDT Lucy Ho HOUSEKEEPING WORKER LAB BLOOD ORDERABLES Fin al Result Performing Organization Address City/[facility]/ZIP Co de Phone Number [facility] Department [place] [address] * (ABNORMAL) Basic metabolic panel (03/03/2025 10:44 PM CDT) [facility] Sodium 142 135 - 145 mmol/L Potassium, pl 4.3 3.3 - 4.9 mmol/L [facility] Chloride 101 97 - 110 mmol/L [facility] CO2 35(H) 22 - 32 mmol/L [facility] Anion gap 6 2 - 15 mmol/L [facility] BUN 10 6 - 25 mg/dL [facility] Creatinine 0.77(L) 0.80 - 1.30 mg/dL [facility] Glucose 99 70 - 199 mg/dL [facility] Comment: Interpretive Data Fasting glucose >/= 126 [...] interpretive data was last revised 2022. Calcium 8.6 8.5 - 10.3 mg/dL [facility] Blood 03/03/2025 10:4 4 PM CDT 03/03/2025 11:34 PM CDT Lucy Ho NP LAB BLOOD ORDERABLES Fin al Result Performing Organization Address [facility] Co de Phone Number [facility] Department [place] [address] * eGFR (03/02/2025 11:52 PM CDT) Pathologist [facility] eGFR >90 >=60 mL/min/1. 73 m2 Comment: [...] interpretive data was last reviewed 2021. Blood 03/02/2025 11:5 2 PM CDT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 Lucy Ho NP LAB BLOOD ORDERABLES Fin al Result Performing Organization Address [facility] Co de Phone Number [facility] Department [place] [address] * aPTT (02/28/2025 7:42 PM CDT) aPTT 32 26 - 38 sec Comment: Interpretive Data Heparin therapeutic range: 66.0 - 100.0 seconds. Range based on correlation with therapeutic heparin activity range of 0.3 - 0.7 Units/mL. Current interpretive data was last revised on 2023. Blood 02/28/2025 7:42 PM CDT 02/28/2025 7:57 PM CDT Lucy Ho NP LAB BLOOD ORDERABLES Fin al Result Performing Organization Address City/[facility]/ZIP Co de Phone Number [facility] Department [place] [address] * Protime-INR (02/28/2025 7:42 PM CDT) PT 13.3 10.2 - 13.5 sec INR 1.18 0.90 - 1.20 [facility] Comment: Interpretive data Oral anticoagulant therapeutic ranges: Venous thromboembolism prophylaxis or treatment: 2.0-3.0 CARDIOLOGY Standard range: 2.0-3.0 High-intensity range: 2.5-3.5 Refer to indication-specific guidelines for appropriate target ranges for prosthetic heart valve replacement. Current interpretive data was last revised on 2019. Blood 02/28/2025 7:42 PM CDT 02/28/2025 7:57 PM CDT us Lucy Ho HOUSEKEEPING WORKER LAB BLOOD ORDERABLES Fin al Result [facility] Department [place] [address] * (ABNORMAL) CBC without differential (02/28/2025 7:42 PM CDT) Pathologist [facility] WBC 8.91 3.80 - 9.90 K/cumm Hgb 9.2(L) 13.0 - 17.5 g/dL [facility] Hct 29.5(L) 38.9 - 50.3 % [facility] Plt 223 150 - 400 K/cumm [facility] MPV 10.5 9.1 - 12.3 fL [facility] RBC 3.26(L) 4.30 - 5.80 M/cumm [facility] MCV 90.5 81.3 - 96.4 fL [facility] MCH 28.2 27.1 - 33.3 pg [facility] MCHC 31.2(L) 32.3 - 35.7 g/dL [facility] RDW CV 15.5(H) 11.1 - 14.9 % [facility] RDW SD 51.8(H) 35.7 - 48.1 fL [facility] NRBC abs 0.00 0.00 - 0.01 K/cumm [facility] Blood 02/28/2025 7:42 PM CDT 02/28/2025 7:57 PM CDT us Lucy Ho NP LAB BLOOD ORDERABLES Fin al Result Performing Organization Address [facility] [place] [address] * (ABNORMAL) Type and screen (02/28/2025 7:42 PM CDT) ABO Rh O Positive Bonifacio, indirect Positive(A) [facility] Blood 02/28/2025 7:42 PM CDT 02/28/2025 7:54 PM CDT Narrative [facility] - 02/28/2025 8:47 PM CDT Has the patient had Daratumumab or Isatuximab in the past 6 months?->Unknown Lucy Ho NP LAB BLOOD BANK TEST ORDE RABLES Final Result Performing Organization Address [facility] de Phone Number [facility] Department [place] [address] * Phosphorus (02/28/2025 7:42 PM CDT) Phosphorus, pl 3.9 2.3 - 4.5 mg/dL Blood 02/28/2025 7:42 PM CDT 02/28/2025 7:56 PM CDT Lucy Ho NP LAB BLOOD ORDERABLES Fin al Result Performing Organization Address [facility] Co de Phone Number [facility] [place] [address] * Magnesium (02/28/2025 7:42 PM CDT) Magnesium 2.3 1.4 - 2.5 mg/dL Blood 02/28/2025 7:42 PM CDT 02/28/2025 7:56 PM CDT Lucy Ho NP LAB BLOOD ORDERABLES Fin al Result Performing Organization Address [facility] de Phone Number [facility] [place] [address] * Hemoglobin A1c (02/28/2025 7:42 PM CDT) Pathologist [facility] Hgb A1C 5.4 4.0 - 5.6 % Estimated Average Glucose 108 mg/dL [facility] Comment: The ADA recommends reporting an estimated Average Glucose (eAG) with all Hemoglobin A1c results using the equation derived from a study of 507 normal and diabetic adults. Minority populations were underrepresented and children were not included. (Diabetes Care 2020; 43(S1): S66-S76). The eAG is not equivalent to a fasting glucose. Blood 02/28/2025 7:42 PM CDT 02/28/2025 8:02 PM CDT Liza Traylor MD LAB BLOOD ORDERABLES Fin al Result Performing Organization Address [facility] Phone Number [facility] [place] [address] * (ABNORMAL) Blood gas, arterial (02/28/2025 7:42 PM CDT) Pathologist [facility] pH, Art 7.38 7.35 - 7.45 PCO2, Arterial 53(H) 35 - 45 mmHg [facility] PO2, Arterial 78(L) 83 - 108 mmHg [facility] HCO3 Art (Calculated) 31(H) 20 - 30 mmol/L [facility] BE, art 5 mmol/L [facility] Comment: Interpretive Data No Reference Range Established Current Interpretive Data was last revised on 2017 O2 Sat Art (Measured) 96(H) 90 - 95 % [facility] Blood 02/28/2025 7:42 PM CDT 02/28/2025 7:49 PM CDT Lucy Ho NP LAB BLOOD ORDERABLES Fin al Result Performing Organization Address [facility]/State/ZIP Co de Phone Number GIGI HALEY [facility] Department [place] [address] * (ABNORMAL) Lipid panel (02/28/2025 7:42 PM CDT) Cholesterol 68 30 - 199 mg/dL Comment: Interpretive Data Ages < or = 19 years Acceptable: <170 mg/dL Borderline high: 170-199 mg/dL High: >or= 200 mg/dL Ages > or = 20 years Desirable: <200 mg/dL Borderline high: 200-239 mg/dL High: >or= 240 mg/dL Literature References: 1. Expert Panel on Integrated Guidelines for Cardiovascular Health and Risk Reduction in Children and Adolescents. Pediatrics 2011;128:S213 2. NCEP Expert Panel. Circulation 2004;110:227 Current Interpretive Data was last revised on 2018. Triglycerides 45 <=149 mg/dL [facility] Comment: Interpretive Data Ages < or = 9 years Acceptable: <75 mg/dL Borderline high: 75-99 mg/dL High: >or= 100 mg/dL Ages 10 to 20 years Acceptable: <90 mg/dL Borderline high: 90-129 mg/dL High: >or= 130 mg/dL Ages > or = 20 years Desirable: <150 mg/dL Borderline high: 150-199 mg/dL High: 200-499 mg/dL Very high: >or= 499 mg/dL Literature References: 1. Expert Panel on Integrated Guidelines for Cardiovascular Health and Risk Reduction in Children and Adolescents. Pediatrics 2011;128:S213 2. NCEP Expert Panel. Circulation 2004;110:227 Current Interpretive Data was last revised on 2018. HDL 27(L) >=40 mg/dL [facility] Comment: Interpretive Data Ages < or = 19 years Acceptable: >45 mg/dL Borderline low: 40-45 mg/dL Low: <40 mg/dL Ages > or = 20 years Desirable: >or= 60 mg/dL Low: <40 mg/dL Literature References: 1. Expert Panel on Integrated Guidelines for Cardiovascular Health and Risk Reduction in Children and Adolescents. Pediatrics 2011;128:S213 2. NCEP Expert Panel. Circulation 2004;110:227 Current Interpretive Data was last revised on 2018. LDL, calculated 28 <=129 mg/dL [facility] Comment: Interpretive Data Ages < or = 19 years Acceptable: <110 mg/dL Borderline high: 110-129 mg/dL High: >or= 130 mg/dL Ages > or = 20 years Optimal: <100 mg/dL Near optimal: 100-129 mg/dL Borderline high: 130-159 mg/dL High: >160 mg/dL Calculated using the Luis LDL-C estimating equation. This equation was implemented on 2024. Prior to this date LDL-C was estimated using the Friedewald equation. Literature References: 1. Expert Panel on Integrated Guidelines for Cardiovascular Health and Risk Reduction in Children and Adolescents. Pediatrics 2011;128:S213 2. NCEP Expert Panel. Circulation 2004;110:227 3. Luis Segal et al. JO Cardiol. 2020 November 02;5(5):540-548. doi: 10.1001/jamacardio.2020.0013 Current Interpretive Data was last revised on 2024. Non-HDL Cholesterol 41 mg/dL [facility] Comment: Interpretive Data Ages < or = 19 years Acceptable: <120 mg/dL Borderline high: 120-144 mg/dL High: >145 mg/dL Ages > or = 20 years When triglycerides are >200 mg/dL, Non-HDL cholesterol is a secondary target of therapy with treatment goals that are 30 mg/dL greater than the LDL cholesterol target. Literature References: 1. Expert Panel on Integrated Guidelines for Cardiovascular Health and Risk Reduction in Children and Adolescents. Pediatrics 2011;128:S213 2. NCEP Expert Panel. Circulation 2004;110:227 Current Interpretive Data was last revised on 2018. Chol/HDL ratio 3 [facility] Blood 02/28/2025 7:42 PM CDT 02/28/2025 7:56 PM CDT us Jaquelin Monroy MD LAB BLOOD ORDERABLES Fin al Result [facility] Department [place] [address] * (ABNORMAL) Comprehensive metabolic panel (02/28/2025 7:42 PM CDT) Pathologist [facility] Sodium 144 135 - 145 mmol/L Potassium, pl 3.9 3.3 - 4.9 mmol/L [facility] Chloride 106 97 - 110 mmol/L [facility] CO2 33(H) 22 - 32 mmol/L [facility] Anion gap 5 2 - 15 mmol/L [facility] BUN 18 6 - 25 mg/dL [facility] Creatinine 0.88 0.80 - 1.30 mg/dL [facility] Glucose 117 70 - 199 mg/dL [facility] Comment: Interpretive Data Fasting glucose >/= 126 [...] interpretive data was last revised 2022. Calcium 8.3(L) 8.5 - 10.3 mg/dL [facility] Bilirubin, total 0.3 0.1 - 1.2 mg/dL [facility] Protein, pl 5.9(L) 6.5 - 8.5 g/dL [facility] Albumin 2.8(L) 3.5 - 5.0 g/dL [facility] Alk phos 89 40 - 130 Units/L [facility] ALT 18 7 - 55 Units/L [facility] AST 28 10 - 50 Units/L [facility] Blood 02/28/2025 7:42 PM CDT 02/28/2025 7:56 PM CDT us Lucy Ho NP LAB BLOOD ORDERABLES Fin al Result [facility] Department [place] [address] * POCT glucose (02/28/2025 7:27 PM CDT) Glucose, POC 126 70 - 199 mg/dL Blood 02/28/2025 7:27 PM CDT 02/28/2025 7:27 PM CDT Liza Traylor MD LAB POCT ORDERABLES - DE VICE Final Result [facility] Department [place] [address] * CTA/CTP Rapid Stroke (C) (02/28/2025 7:13 PM CDT) Anatomical Region Laterality Modality Head and Neck N/A Computed Tomogra phy 02/28/2025 7:18 PM CDT Impressions 03/01/2025 10:21 AM CDT 1. No acute intracranial hemorrhage. 2. No large territory edematous infarct. 3. No measurable perfusion deficit although the field of view excludes the superiormost part of the brain. 4. No intracranial large vessel occlusion nor severe stenosis. 5. No significant (>50%) carotid stenosis. 6. Incompletely imaged bilateral pleural effusions and right lung opacity. Further evaluation can be performed with chest CT if indicated. The Critical results were discussed with DR Mills by Dr. Zia Flanagan MD on 02/28/2025 7:06 PM and 7:14 PM. Dictated by: Zia Flanagan MD The radiology attending physician has personally reviewed this study, and had reviewed and/or edited this written report and agrees with it. Electronically signed by: Goldie Edwards M.D. Narrative 03/01/2025 10:21 AM CDT EXAMINATION: 1. Computed tomography angiography (CTA) of the head without and with contrast 2. Computed tomography angiography (CTA) of the neck with contrast 3. CT perfusion imaging of the head with contrast HISTORY: Right-sided facial droop and aphasia TECHNIQUE: CT of the head was performed with images acquired from skull base to vertex without intravenous contrast. Computed tomographic angiography was obtained from the aortic arch to the vertex following the uneventful administration of intravenous contrast. 3D images of the CTA were generated on a dedicated workstation/server cashier. [employer] software ([employer]) was used for automated analyses of the CTA. CT perfusion of the brain was performed with intravenous contrast using a separate data acquisition. These data were transmitted to a separate workstation/server cashier for processing by [employer] software ([employer] [place]) to produce automated calculations of the estimated cerebral blood flow and Tmax. 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 Scattered ill-defined hypodensities in the periventricular and subcortical white matter are nonspecific, likely on the basis of chronic small vessel ischemic change. There is parenchymal volume loss. There is no acute intracranial hemorrhage. There is no large territory of parenchymal edema. Ventricles are of normal size and morphology. There is no mass effect or midline shift. The orbits, paranasal sinuses, and mastoids are unremarkable. No acute skull fracture. ANGIOGRAPHIC FINDINGS: The visualized aortic arch appears normal with normal configuration of the great vessels. There is no significant stenosis of the origins of the great vessels. There is no geographic area of vascular paucity in the brain. Left anterior circulation: L CCA: no occlusion or significant stenosis L carotid bifurcation: Mild calcified disease. No occlusion or significant stenosis L ICA cervical: no occlusion or significant stenosis L ICA intracranial: no occlusion or significant stenosis L M1: no occlusion or significant stenosis L M2 proximal or dominant: no occlusion or significant stenosis L mid-M2/M3 branches: no occlusion or significant stenosis L KEITH: no occlusion or significant stenosis Right anterior circulation: R CCA: no occlusion or significant stenosis R carotid bifurcation: Mild calcified disease. No occlusion or significant stenosis R ICA cervical: no occlusion or significant stenosis R ICA intracranial: no occlusion or significant stenosis R M1: no occlusion or significant stenosis R M2 proximal or dominant: no occlusion or significant stenosis R mid-M2/M3 branches: no occlusion or significant stenosis R KEITH: no occlusion or significant stenosis Posterior circulation: L Vertebral Artery: no occlusion or significant stenosis R Vertebral Artery: no occlusion or significant stenosis Basilar Artery: no occlusion or significant stenosis L DEPUTY PROGRAM MANAGER: no occlusion or significant stenosis R DEPUTY PROGRAM MANAGER: Mild to moderate narrowing. No occlusion. There is no CTA evidence for cerebral aneurysm. There is no evidence for an arteriovenous malformation. INCIDENTAL FINDINGS: There is no suspicious cervical lymphadenopathy. Multilevel degenerative disc disease in the cervical spine. Show small bilateral pleural effusions and a right lung opacity which is incompletely evaluated but may also represent pleural fluid. PERFUSION FINDINGS: There is no measurable perfusion deficit in the brain although the field of view is shortened with the superiormost part of the brain excluded. Estimated ischemic core volume (rCBF < 0.3): 0 mL Estimated hypoperfusion volume (Tmax > 6 sec): [address] Seals and participated in this exam. Procedure Note Goldie Edwards MD - 03/01/2025 EXAMINATION: 1. Computed tomography angiography (CTA) of the head without and with contrast 2. Computed tomography angiography (CTA) of the neck with contrast 3. CT perfusion imaging of the head with contrast HISTORY: Right-sided facial droop and aphasia TECHNIQUE: CT of the head was performed with images acquired from skull base to vertex without intravenous contrast. Computed tomographic angiography was obtained from the aortic arch to the vertex following the uneventful administration of intravenous contrast. 3D images of the CTA were generated on a dedicated workstation/server cashier. [employer] software ([employer] [place]) was used for automated analyses of the CTA. CT perfusion of the brain was performed with intravenous contrast using a separate data acquisition. These data were transmitted to a separate workstation/server cashier for processing by [employer] software ([employer] [place]) to produce automated calculations of the estimated cerebral blood flow and Tmax. 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 Scattered ill-defined hypodensities in the periventricular and subcortical white matter are nonspecific, likely on the basis of chronic small vessel ischemic change. There is parenchymal volume loss. There is no acute intracranial hemorrhage. There is no large territory of parenchymal edema. Ventricles are of normal size and morphology. There is no mass effect or midline shift. The orbits, paranasal sinuses, and mastoids are unremarkable. No acute skull fracture. ANGIOGRAPHIC FINDINGS: The visualized aortic arch appears normal with normal configuration of the great vessels. There is no significant stenosis of the origins of the great vessels. There is no geographic area of vascular paucity in the brain. Left anterior circulation: L CCA: no occlusion or significant stenosis L carotid bifurcation: Mild calcified disease. No occlusion or significant stenosis L ICA cervical: no occlusion or significant stenosis L ICA intracranial: no occlusion or significant stenosis L M1: no occlusion or significant stenosis L M2 proximal or dominant: no occlusion or significant stenosis L mid-M2/M3 branches: no occlusion or significant stenosis L KEITH: no occlusion or significant stenosis Right anterior circulation: R CCA: no occlusion or significant stenosis R carotid bifurcation: Mild calcified disease. No occlusion or significant stenosis R ICA cervical: no occlusion or significant stenosis R ICA intracranial: no occlusion or significant stenosis R M1: no occlusion or significant stenosis R M2 proximal or dominant: no occlusion or significant stenosis R mid-M2/M3 branches: no occlusion or significant stenosis R KEITH: no occlusion or significant stenosis Posterior circulation: L Vertebral Artery: no occlusion or significant stenosis R Vertebral Artery: no occlusion or significant stenosis Basilar Artery: no occlusion or significant stenosis L DEPUTY PROGRAM MANAGER: no occlusion or significant stenosis R DEPUTY PROGRAM MANAGER: Mild to moderate narrowing. No occlusion. There is no CTA evidence for cerebral aneurysm. There is no evidence for an arteriovenous malformation. INCIDENTAL FINDINGS: There is no suspicious cervical lymphadenopathy. Multilevel degenerative disc disease in the cervical spine. Show small bilateral pleural effusions and a right lung opacity which is incompletely evaluated but may also represent pleural fluid. PERFUSION FINDINGS: There is no measurable perfusion deficit in the brain although the field of view is shortened with the superiormost part of the brain excluded. Estimated ischemic core volume (rCBF < 0.3): 0 mL Estimated hypoperfusion volume (Tmax > 6 sec): [address] Seals and participated in this exam. IMPRESSION: 1. No acute intracranial hemorrhage. 2. No large territory edematous infarct. 3. No measurable perfusion deficit although the field of view excludes the superiormost part of the brain. 4. No intracranial large vessel occlusion nor severe stenosis. 5. No significant (>50%) carotid stenosis. 6. Incompletely imaged bilateral pleural effusions and right lung opacity. Further evaluation can be performed with chest CT if indicated. The Critical results were discussed with DR Mills by Dr. Zia Flanagan MD on 02/28/2025 7:06 PM and 7:14 PM. Dictated by: Zia Flanagan MD The radiology attending physician has personally reviewed this study, and had reviewed and/or edited this written report and agrees with it. Electronically signed by: Goldie Mazaheri, M.D. us Jaquelin Monroy MD IMG CT PROCEDURES Final Result * eGFR (02/28/2025 6:50 PM CDT) Pathologist [facility] eGFR >90 >=60 mL/min/1. 73 m2 Comment: [...] interpretive data was last reviewed 2021. Blood 02/28/2025 6:50 PM CDT 02/28/2025 7:03 PM CDT Jaquelin Monroy MD LAB BLOOD ORDERABLES Fin al Result [facility] Department [place] [address] * (ABNORMAL) Differential, auto (02/28/2025 6:50 PM CDT) Pathologist [facility] Neutrophil abs 7.36(H) 1.50 - 6.50 K/cumm Imm gran abs 0.03 0.00 - 0.10 K/cumm [facility] Lymphocyte abs 0.76(L) 0.80 - 3.30 K/cumm [facility] Monocyte abs 0.87(H) 0.20 - 0.80 K/cumm [facility] Eosinophil abs 0.20 0.00 - 0.50 K/cumm [facility] Basophil abs 0.02 0.00 - 0.10 K/cumm [facility] Neutrophil pct 79.7 % [facility] Comment: Interpretive Data Percent cell count reference ranges are not reported, since discordance with absolute values may lead to misinterpretation of CBC data. Current Interpretive Data was last revised on 2017. Imm gran pct 0.3 % [facility] Comment: Interpretive Data Percent cell count reference ranges are not reported, since discordance with absolute values may lead to misinterpretation of CBC data. Current Interpretive Data was last revised on 2017. Lymphocyte pct 8.2 % [facility] Comment: Interpretive Data Percent cell count reference ranges are not reported, since discordance with absolute values may lead to misinterpretation of CBC data. Current Interpretive Data was last revised on 2017. Monocyte pct 9.4 % [facility] Comment: Interpretive Data Percent cell count reference ranges are not reported, since discordance with absolute values may lead to misinterpretation of CBC data. Current Interpretive Data was last revised on 2017. Eosinophil pct 2.2 % [facility] Comment: Interpretive Data Percent cell count reference ranges are not reported, since discordance with absolute values may lead to misinterpretation of CBC data. Current Interpretive Data was last revised on 2017. Basophil pct 0.2 % [facility] Comment: Interpretive Data Percent cell count reference ranges are not reported, since discordance with absolute values may lead to misinterpretation of CBC data. Current Interpretive Data was last revised on 2017. Blood 02/28/2025 6:50 PM CDT 02/28/2025 7:03 PM CDT us Jaquelin Monroy MD LAB BLOOD ORDERABLES Fin al Result [facility] Department [place] [address] * (ABNORMAL) CBC with auto differential (02/28/2025 6:50 PM CDT) WBC 9.24 3.80 - 9.90 K/cumm Hgb 8.9(L) 13.0 - 17.5 g/dL [facility] Hct 28.9(L) 38.9 - 50.3 % [facility] Plt 221 150 - 400 K/cumm [facility] MPV 10.6 9.1 - 12.3 fL [facility] RBC 3.20(L) 4.30 - 5.80 M/cumm [facility] MCV 90.3 81.3 - 96.4 fL [facility] MCH 27.8 27.1 - 33.3 pg [facility] MCHC 30.8(L) 32.3 - 35.7 g/dL [facility] RDW CV 15.4(H) 11.1 - 14.9 % [facility] RDW SD 50.8(H) 35.7 - 48.1 fL [facility] NRBC abs 0.00 0.00 - 0.01 K/cumm [facility] Blood 02/28/2025 6:50 PM CDT 02/28/2025 7:03 PM CDT Jaquelin Monroy MD LAB BLOOD ORDERABLES Fin al Result [facility] [place] [address] * Lactate, whole blood (02/28/2025 6:50 PM CDT) Lactate, bld 0.9 0.7 - 2.0 mmol/L Blood 02/28/2025 6:50 PM CDT 02/28/2025 6:57 PM CDT Jaquelin Monroy MD LAB BLOOD ORDERABLES Fin al Result [facility] [place] [address] * Magnesium (02/28/2025 6:50 PM CDT) Magnesium 2.0 1.4 - 2.5 mg/dL Blood 02/28/2025 6:50 PM CDT 02/28/2025 7:03 PM CDT Jaquelin Monroy MD LAB BLOOD ORDERABLES Fin al Result Performing Organization Address [facility] de Phone Number [facility] [place] [address] * (ABNORMAL) Blood gas, venous (02/28/2025 6:50 PM CDT) pH, Venous 7.34 7.32 - 7.43 PCO2, Venous 59(H) 40 - 50 mmHg [facility] PO2, Venous 58 mmHg [facility] Comment: Interpretive Data No Reference Range Established Current Interpretive Data was last revised on 2017. HCO3 Venous, Calculated 31(H) 20 - 30 mmol/L [facility] BE, venous 4 mmol/L [facility] Comment: Interpretive Data No Reference Range Established Current Interpretive Data was last revised on 2017. Blood 02/28/2025 6:50 PM CDT 02/28/2025 6:57 PM CDT Jaquelin Monroy MD LAB BLOOD ORDERABLES Fin al Result Performing Organization Address [facility] de Phone Number [facility] [place] [address] * (ABNORMAL) Hepatic function panel (02/28/2025 6:50 PM CDT) Bilirubin, total 0.3 0.1 - 1.2 mg/dL Bilirubin, direct <0.2 0.1 - 0.3 mg/dL [facility] Protein, pl 5.9(L) 6.5 - 8.5 g/dL [facility] Albumin 3.0(L) 3.5 - 5.0 g/dL [facility] Alk phos 91 40 - 130 Units/L [facility] ALT 23 7 - 55 Units/L [facility] AST 27 10 - 50 Units/L [facility] Blood 02/28/2025 6:50 PM CDT 02/28/2025 7:03 PM CDT Jaquelin Monroy MD LAB BLOOD ORDERABLES Fin al Result Performing Organization Address City/[facility]/ZIP Co de Phone Number [facility] Department [place] [address] * (ABNORMAL) Basic metabolic panel (02/28/2025 6:50 PM CDT) Sodium 148(H) 135 - 145 mmol/L Potassium, pl 4.5 3.3 - 4.9 mmol/L [facility] Chloride 108 97 - 110 mmol/L [facility] CO2 33(H) 22 - 32 mmol/L [facility] Anion gap 7 2 - 15 mmol/L [facility] BUN 17 6 - 25 mg/dL [facility] Creatinine 0.85 0.80 - 1.30 mg/dL [facility] Glucose 136 70 - 199 mg/dL [facility] Comment: Interpretive Data Fasting glucose >/= 126 [...] interpretive data was last revised 2022. Calcium 7.6(L) 8.5 - 10.3 mg/dL [facility] Blood 02/28/2025 6:50 PM CDT 02/28/2025 7:03 PM CDT Jaquelin Monroy MD LAB BLOOD ORDERABLES Fin al Result Performing Organization Address City/[facility]/ZIP Co de Phone Number [facility] Department [place] [address] * (ABNORMAL) Arterial Blood gas w/Lactate POCT (02/28/2025 6:49 PM CDT) Pathologist [facility] Lactate POC i-STAT 0.5(L) 0.7 - 2.0 mmol/L pH POC 7.34(L) 7.35 - 7.45 [facility] pCO2, Art POC 60(H) 35 - 45 mmHg [facility] H PO2 POC 51(L) 80 - 105 mmHg [facility] H CO2, total POC 35(H) 20 - 30 mmol/L [facility] HCO3, POC 33(H) 21 - 30 mmol/L [facility] BE POC 7(H) -2 - 3 mmol/L [facility] O2 sat POC 82(L) 95 - 98 % [facility] Blood 02/28/2025 6:49 PM CDT 02/28/2025 6:49 PM CDT Jaquelin Monroy MD LAB BLOOD [place]AB[place] [address] * POCT glucose (02/28/2025 6:30 PM CDT) [facility] Glucose, POC 140 70 - 199 mg/dL Blood 02/28/2025 6:30 PM CDT 02/28/2025 6:30 PM CDT Jaquelin Monroy MD LAB POCT ORDERABLES - [place] [address] * XR Sacrum Coccyx 2 or More Views (02/28/2025 9:55 AM CDT) Anatomical Region Laterality Modality Pelvis, Body N/A Computed Radiogr aphy 02/28/2025 11:0 7 AM CDT Impressions 02/28/2025 11:58 AM CDT 1. Sequelae of partial erosion/destruction of the distal sacrum and coccyx, difficult to compare progression but compatible with at least prior osteomyelitis. Dictated by: Dillan Winters M.D. The radiology attending physician has personally reviewed this study, and had reviewed and/or edited this written report and agrees with it. Electronically signed by: Solomon Belle M.D. Narrative 02/28/2025 11:58 AM CDT EXAMINATION: XR SACRUM COCCYX 2 OR MORE VIEWS, XR SPINE LUMBAR 2 OR 3 VIEWS HISTORY: Sacral wound concerning for osteomyelitis FINDINGS: 2 views of the lumbar spine and 3 views of the sacrum are significant for interpretation. Comparison made to CT dated 06/21/2024. Sequelae of partial erosion/destruction of the distal sacrum and coccyx, however difficult to ascertain if similar or progressed from prior CT dated 06/21/2024 given differences in technique. Straightening of the lumbar lordosis. Mild multilevel degenerative disc disease and facet arthropathy of the lumbar spine. Vertebral body heights are normal. There are no compression fractures. Leads projecting over the posterior right soft tissues. Pump projecting over the left pelvis. Coil material in the upper abdomen. Vena cava filter. Procedure Note Solomon Belle MD PhD - 02/28/2025 EXAMINATION: XR SACRUM COCCYX 2 OR MORE VIEWS, XR SPINE LUMBAR 2 OR 3 VIEWS HISTORY: Sacral wound concerning for osteomyelitis FINDINGS: 2 views of the lumbar spine and 3 views of the sacrum are significant for interpretation. Comparison made to CT dated 06/21/2024. Sequelae of partial erosion/destruction of the distal sacrum and coccyx, however difficult to ascertain if similar or progressed from prior CT dated 06/21/2024 given differences in technique. Straightening of the lumbar lordosis. Mild multilevel degenerative disc disease and facet arthropathy of the lumbar spine. Vertebral body heights are normal. There are no compression fractures. Leads projecting over the posterior right soft tissues. Pump projecting over the left pelvis. Coil material in the upper abdomen. Vena cava filter. IMPRESSION: 1. Sequelae of partial erosion/destruction of the distal sacrum and coccyx, difficult to compare progression but compatible with at least prior osteomyelitis. Dictated by: Dillan Winters M.D. The radiology attending physician has personally reviewed this study, and had reviewed and/or edited this written report and agrees with it. Electronically signed by: Solomon Belle M.D. Jaquelin Monroy MD IMG XR PROCEDURES Final Result * XR Spine Lumbar 2 or 3 Views (02/28/2025 9:55 AM CDT) Anatomical Region Laterality Modality Spine N/A Computed Radiogr aphy 02/28/2025 11:0 7 AM CDT Impressions 02/28/2025 11:58 AM CDT 1. Sequelae of partial erosion/destruction of the distal sacrum and coccyx, difficult to compare progression but compatible with at least prior osteomyelitis. Dictated by: Dillan Winters M.D. The radiology attending physician has personally reviewed this study, and had reviewed and/or edited this written report and agrees with it. Electronically signed by: Solomon Belle M.D. Narrative 02/28/2025 11:58 AM CDT EXAMINATION: XR SACRUM COCCYX 2 OR MORE VIEWS, XR SPINE LUMBAR 2 OR 3 VIEWS HISTORY: Sacral wound concerning for osteomyelitis FINDINGS: 2 views of the lumbar spine and 3 views of the sacrum are significant for interpretation. Comparison made to CT dated 06/21/2024. Sequelae of partial erosion/destruction of the distal sacrum and coccyx, however difficult to ascertain if similar or progressed from prior CT dated 06/21/2024 given differences in technique. Straightening of the lumbar lordosis. Mild multilevel degenerative disc disease and facet arthropathy of the lumbar spine. Vertebral body heights are normal. There are no compression fractures. Leads projecting over the posterior right soft tissues. Pump projecting over the left pelvis. Coil material in the upper abdomen. Vena cava filter. Procedure Note Solomon Belle MD PhD - 02/28/2025 EXAMINATION: XR SACRUM COCCYX 2 OR MORE VIEWS, XR SPINE LUMBAR 2 OR 3 VIEWS HISTORY: Sacral wound concerning for osteomyelitis FINDINGS: 2 views of the lumbar spine and 3 views of the sacrum are significant for interpretation. Comparison made to CT dated 06/21/2024. Sequelae of partial erosion/destruction of the distal sacrum and coccyx, however difficult to ascertain if similar or progressed from prior CT dated 06/21/2024 given differences in technique. Straightening of the lumbar lordosis. Mild multilevel degenerative disc disease and facet arthropathy of the lumbar spine. Vertebral body heights are normal. There are no compression fractures. Leads projecting over the posterior right soft tissues. Pump projecting over the left pelvis. Coil material in the upper abdomen. Vena cava filter. IMPRESSION: 1. Sequelae of partial erosion/destruction of the distal sacrum and coccyx, difficult to compare progression but compatible with at least prior osteomyelitis. Dictated by: Dillan Winters M.D. The radiology attending physician has personally reviewed this study, and had reviewed and/or edited this written report and agrees with it. Electronically signed by: Solomon Belle M.D. Jaquelin Monroy MD IMG XR PROCEDURES Final Result * eGFR (02/27/2025 10:55 PM CDT) eGFR 89 >=60 mL/min/1. 73 m2 Comment: [...] of Race in Diagnosing Kidney Disease, JASN 202). The CKD-EPI equation should not be used for patients with unstable renal function and has not been validated in children and those over 70. Current interpretive data was last reviewed 2021. Blood 02/27/2025 10:5 5 PM CDT 02/28/2025 12:32 AM CDT us Shayne Hussein MD LAB BLOOD ORDERABLES Final R esult [facility] Department [place] [address] * (ABNORMAL) Differential, auto (02/27/2025 10:55 PM CDT) Neutrophil abs 7.32(H) 1.50 - 6.50 K/cumm Imm gran abs 0.05 0.00 - 0.10 K/cumm [facility] Lymphocyte abs 0.88 0.80 - 3.30 K/cumm [facility] Monocyte abs 0.93(H) 0.20 - 0.80 K/cumm [facility] Eosinophil abs 0.21 0.00 - 0.50 K/cumm [facility] Basophil abs 0.03 0.00 - 0.10 K/cumm [facility] Neutrophil pct 77.8 % [facility] Comment: Interpretive Data Percent cell count reference ranges are not reported, since discordance with absolute values may lead to misinterpretation of CBC data. Current Interpretive Data was last revised on 2017. Imm gran pct 0.5 % [facility] Comment: Interpretive Data Percent cell count reference ranges are not reported, since discordance with absolute values may lead to misinterpretation of CBC data. Current Interpretive Data was last revised on 2017. Lymphocyte pct 9.3 % [facility] Comment: Interpretive Data Percent cell count reference ranges are not reported, since discordance with absolute values may lead to misinterpretation of CBC data. Current Interpretive Data was last revised on 2017. Monocyte pct 9.9 % [facility] Comment: Interpretive Data Percent cell count reference ranges are not reported, since discordance with absolute values may lead to misinterpretation of CBC data. Current Interpretive Data was last revised on 2017. Eosinophil pct 2.2 % [facility] Comment: Interpretive Data Percent cell count reference ranges are not reported, since discordance with absolute values may lead to misinterpretation of CBC data. Current Interpretive Data was last revised on 2017. Basophil pct 0.3 % [facility] Comment: Interpretive Data Percent cell count reference ranges are not reported, since discordance with absolute values may lead to misinterpretation of CBC data. Current Interpretive Data was last revised on 2017. Blood 02/27/2025 10:5 5 PM CDT 02/28/2025 12:37 AM CDT us Shayne Hussein MD LAB BLOOD ORDERABLES Final R esult Performing Organization Address City/[facility]/ZIP Co de Phone Number [facility] [place] [address] * (ABNORMAL) CBC with auto differential (02/27/2025 10:55 PM CDT) WBC 9.42 3.80 - 9.90 K/cumm Hgb 8.9(L) 13.0 - 17.5 g/dL [facility] Hct 28.3(L) 38.9 - 50.3 % [facility] Plt 224 150 - 400 K/cumm [facility] MPV 10.6 9.1 - 12.3 fL [facility] RBC 3.15(L) 4.30 - 5.80 M/cumm [facility] MCV 89.8 81.3 - 96.4 fL [facility] MCH 28.3 27.1 - 33.3 pg [facility] MCHC 31.4(L) 32.3 - 35.7 g/dL [facility] RDW CV 15.5(H) 11.1 - 14.9 % [facility] RDW SD 50.9(H) 35.7 - 48.1 fL [facility] NRBC abs 0.00 0.00 - 0.01 K/cumm [facility] Blood 02/27/2025 10:5 5 PM CDT 02/28/2025 12:37 AM CDT us Shayne Hussein MD LAB BLOOD ORDERABLES Final R esult Performing Organization Address City/[facility]/ZIP Co de Phone Number [facility] [place] [address] * (ABNORMAL) Basic metabolic panel (02/27/2025 10:55 PM CDT) Sodium 141 135 - 145 mmol/L Potassium, pl 3.6 3.3 - 4.9 mmol/L [facility] Chloride 105 97 - 110 mmol/L [facility] CO2 30 22 - 32 mmol/L [facility] Anion gap 6 2 - 15 mmol/L [facility] BUN 18 6 - 25 mg/dL [facility] Creatinine 0.90 0.80 - 1.30 mg/dL [facility] Glucose 105 70 - 199 mg/dL [facility] Comment: Interpretive Data Fasting glucose >/= 126 [...] interpretive data was last revised 2022. Calcium 7.8(L) 8.5 - 10.3 mg/dL [facility] Blood 02/27/2025 10:5 5 PM CDT 02/28/2025 12:32 AM CDT us Shayne Hussein MD LAB BLOOD ORDERABLES Final R esult [facility] Department [place] [address] * POCT glucose (02/27/2025 11:31 AM CDT) Glucose, POC 138 70 - 199 mg/dL Blood 02/27/2025 11:3 1 AM CDT 02/27/2025 11:31 AM CDT us Jaquelin Monroy MD LAB POCT ORDERABLES - DE VICE Final Result Performing Organization Address City/[facility]/ZIP Co de Phone Number [facility] Department [place] [address] * eGFR (02/26/2025 11:33 PM CDT) eGFR >90 >=60 mL/min/1. 73 m2 Comment: [...] interpretive data was last reviewed 2021. Blood 02/26/2025 11:3 3 PM CDT 02/27/2025 12:05 AM CDT us Shayne Hussein MD LAB BLOOD ORDERABLES Final R esult Performing Organization Address City/[facility]/ZIP Co de Phone Number [facility] [place] [address] * (ABNORMAL) Differential, auto (02/26/2025 11:33 PM CDT) Neutrophil abs 5.82 1.50 - 6.50 K/cumm Imm gran abs 0.04 0.00 - 0.10 K/cumm [facility] Lymphocyte abs 0.74(L) 0.80 - 3.30 K/cumm [facility] Monocyte abs 0.82(H) 0.20 - 0.80 K/cumm [facility] Eosinophil abs 0.25 0.00 - 0.50 K/cumm [facility] Basophil abs 0.02 0.00 - 0.10 K/cumm [facility] Neutrophil pct 75.6 % [facility] Comment: Interpretive Data Percent cell count reference ranges are not reported, since discordance with absolute values may lead to misinterpretation of CBC data. Current Interpretive Data was last revised on 2017. Imm gran pct 0.5 % [facility] Comment: Interpretive Data Percent cell count reference ranges are not reported, since discordance with absolute values may lead to misinterpretation of CBC data. Current Interpretive Data was last revised on 2017. Lymphocyte pct 9.6 % [facility] Comment: Interpretive Data Percent cell count reference ranges are not reported, since discordance with absolute values may lead to misinterpretation of CBC data. Current Interpretive Data was last revised on 2017. Monocyte pct 10.7 % [facility] Comment: Interpretive Data Percent cell count reference ranges are not reported, since discordance with absolute values may lead to misinterpretation of CBC data. Current Interpretive Data was last revised on 2017. Eosinophil pct 3.3 % [facility] Comment: Interpretive Data Percent cell count reference ranges are not reported, since discordance with absolute values may lead to misinterpretation of CBC data. Current Interpretive Data was last revised on 2017. Basophil pct 0.3 % [facility] Comment: Interpretive Data Percent cell count reference ranges are not reported, since discordance with absolute values may lead to misinterpretation of CBC data. Current Interpretive Data was last revised on 2017. Blood 02/26/2025 11:3 3 PM CDT 02/27/2025 12:06 AM CDT us Shayne Hussein MD LAB BLOOD ORDERABLES Final R esult [facility] Department [place] [address] * (ABNORMAL) CBC with auto differential (02/26/2025 11:33 PM CDT) [facility] WBC 7.69 3.80 - 9.90 K/cumm Hgb 8.9(L) 13.0 - 17.5 g/dL [facility] Hct 28.8(L) 38.9 - 50.3 % [facility] Plt 174 150 - 400 K/cumm [facility] MPV 10.7 9.1 - 12.3 fL [facility] RBC 3.16(L) 4.30 - 5.80 M/cumm [facility] MCV 91.1 81.3 - 96.4 fL [facility] MCH 28.2 27.1 - 33.3 pg [facility] MCHC 30.9(L) 32.3 - 35.7 g/dL [facility] RDW CV 15.2(H) 11.1 - 14.9 % [facility] RDW SD 51.2(H) 35.7 - 48.1 fL [facility] NRBC abs 0.00 0.00 - 0.01 K/cumm [facility] Blood 02/26/2025 11:3 3 PM CDT 02/27/2025 12:06 AM CDT us Shayne Hussein MD LAB BLOOD ORDERABLES Final R esult [facility] Department [place] [address] * (ABNORMAL) Basic metabolic panel (02/26/2025 11:33 PM CDT) [facility] Sodium 142 135 - 145 mmol/L Potassium, pl 3.8 3.3 - 4.9 mmol/L [facility] Chloride 106 97 - 110 mmol/L [facility] CO2 31 22 - 32 mmol/L [facility] Anion gap 5 2 - 15 mmol/L [facility] BUN 17 6 - 25 mg/dL [facility] Creatinine 0.85 0.80 - 1.30 mg/dL [facility] Glucose 111 70 - 199 mg/dL [facility] Comment: Interpretive Data Fasting glucose >/= 126 [...] interpretive data was last revised 2022. Calcium 8.0(L) 8.5 - 10.3 mg/dL [facility] Blood 02/26/2025 11:3 3 PM CDT 02/27/2025 12:05 AM CDT us Shayne Hussein MD LAB BLOOD ORDERABLES Final R esult Performing Organization Address [facility] Co de Phone Number [facility] Department [place] [address] * Potassium, urine, random (02/26/2025 4:41 PM CDT) Potassium conc, ur 19.1 mmol/L Comment: Interpretive Data No reference range established. Current interpretive data was last revised 2018. Urine 02/26/2025 4:41 PM CDT 02/26/2025 4:57 PM CDT us Ros Olivares NP LAB URINE ORDERABLES Final Result Performing Organization Address [facility] Co de Phone Number [facility] Department [place] [address] * Creatinine, urine, random (02/26/2025 4:41 PM CDT) Creatinine Ur 136.2 mg/dL Comment: Interpretive Data No reference range established. Current interpretive data was last revised 2018. Urine 02/26/2025 4:41 PM CDT 02/26/2025 4:57 PM CDT Rosrobbie Olivares [employer] LAB URINE ORDERABLES Final Result Performing Organization Address City/[facility] Co de Phone Number [facility] [place] [address] * Chloride, urine, random (02/26/2025 4:41 PM CDT) Chloride, ur 91 mmol/L Comment: Interpretive Data No reference range established. Current interpretive data was last revised 2018. Urine 02/26/2025 4:41 PM CDT 02/26/2025 4:57 PM CDT Ros Lucy Marshall LAB URINE ORDERABLES Final Result Performing Organization Address [facility] de Phone Number [facility] [facility] [place] [address] * eGFR (02/26/2025 6:13 AM CDT) eGFR >90 >=60 mL/min/1. 73 m2 Comment: [...] interpretive data was last reviewed 2021. Blood 02/26/2025 6:13 AM CDT 02/26/2025 6:26 AM CDT us Ros Olivares NP LAB BLOOD ORDERABLES Final Result [facility] [place] [address] * (ABNORMAL) Differential, auto (02/26/2025 6:13 AM CDT) Neutrophil abs 5.34 1.50 - 6.50 K/cumm Imm gran abs 0.03 0.00 - 0.10 K/cumm [facility] Lymphocyte abs 0.63(L) 0.80 - 3.30 K/cumm [facility] Monocyte abs 0.93(H) 0.20 - 0.80 K/cumm [facility] Eosinophil abs 0.19 0.00 - 0.50 K/cumm [facility] Basophil abs 0.01 0.00 - 0.10 K/cumm [facility] Neutrophil pct 75.0 % [facility] Comment: Interpretive Data Percent cell count reference ranges are not reported, since discordance with absolute values may lead to misinterpretation of CBC data. Current Interpretive Data was last revised on 2017. Imm gran pct 0.4 % [facility] Comment: Interpretive Data Percent cell count reference ranges are not reported, since discordance with absolute values may lead to misinterpretation of CBC data. Current Interpretive Data was last revised on 2017. Lymphocyte pct 8.8 % [facility] Comment: Interpretive Data Percent cell count reference ranges are not reported, since discordance with absolute values may lead to misinterpretation of CBC data. Current Interpretive Data was last revised on 2017. Monocyte pct 13.0 % [facility] Comment: Interpretive Data Percent cell count reference ranges are not reported, since discordance with absolute values may lead to misinterpretation of CBC data. Current Interpretive Data was last revised on 2017. Eosinophil pct 2.7 % [facility] Comment: Interpretive Data Percent cell count reference ranges are not reported, since discordance with absolute values may lead to misinterpretation of CBC data. Current Interpretive Data was last revised on 2017. Basophil pct 0.1 % [facility] Comment: Interpretive Data Percent cell count reference ranges are not reported, since discordance with absolute values may lead to misinterpretation of CBC data. Current Interpretive Data was last revised on 2017. Blood 02/26/2025 6:13 AM CDT 02/26/2025 6:26 AM CDT us Shayne Hussein MD LAB BLOOD ORDERABLES Final R esult Performing Organization Address City/[facility]/ZIP Co de Phone Number [facility] Department [place] [address] * (ABNORMAL) CBC with auto differential (02/26/2025 6:13 AM CDT) WBC 7.13 3.80 - 9.90 K/cumm Hgb 8.4(L) 13.0 - 17.5 g/dL [facility] Hct 26.6(L) 38.9 - 50.3 % [facility] Plt 182 150 - 400 K/cumm [facility] MPV 10.4 9.1 - 12.3 fL [facility] RBC 2.99(L) 4.30 - 5.80 M/cumm [facility] MCV 89.0 81.3 - 96.4 fL [facility] MCH 28.1 27.1 - 33.3 pg [facility] MCHC 31.6(L) 32.3 - 35.7 g/dL [facility] RDW CV 15.5(H) 11.1 - 14.9 % [facility] RDW SD 50.5(H) 35.7 - 48.1 fL [facility] NRBC abs 0.00 0.00 - 0.01 K/cumm [facility] Blood 02/26/2025 6:13 AM CDT 02/26/2025 6:26 AM CDT us Shayne Hussein MD LAB BLOOD ORDERABLES Final [facility] [place] [address] * Magnesium (02/26/2025 6:13 AM CDT) [facility] Magnesium 2.2 1.4 - 2.5 mg/dL Blood 02/26/2025 6:13 AM CDT 02/26/2025 6:26 AM CDT Shayne Hussein MD LAB BLOOD ORDERABLES Final R esult [facility] [place] [address] * (ABNORMAL) Basic metabolic panel (02/26/2025 6:13 AM CDT) [facility] Sodium 143 135 - 145 mmol/L Potassium, pl 3.3 3.3 - 4.9 mmol/L [facility] Chloride 104 97 - 110 mmol/L [facility] CO2 28 22 - 32 mmol/L [facility] Anion gap 11 2 - 15 mmol/L [facility] BUN 15 6 - 25 mg/dL [facility] Creatinine 0.83 0.80 - 1.30 mg/dL [facility] Glucose 102 70 - 199 mg/dL [facility] Comment: Interpretive Data Fasting glucose >/= 126 [...] interpretive data was last revised 2022. Calcium 7.9(L) 8.5 - 10.3 mg/dL [facility] Blood 02/26/2025 6:13 AM CDT 02/26/2025 6:26 AM CDT us Ros Olivares [employer] WORK[employer] LAB BLOOD ORDERABLES Final Result Performing Organization Address City/[facility] Co de Phone Number [facility] [place] [address] * eGFR (02/25/2025 10:30 PM CDT) eGFR >90 >=60 mL/min/1. 73 m2 Comment: [...] interpretive data was last reviewed 2021. Blood 02/25/2025 10:3 0 PM CDT 02/25/2025 10:39 PM CDT us Shayne Hussein MD LAB BLOOD ORDERABLES Final R esult [facility] Department [place] [address] * Magnesium (02/25/2025 10:30 PM CDT) Magnesium 2.1 1.4 - 2.5 mg/dL Blood 02/25/2025 10:3 0 PM CDT 02/25/2025 10:39 PM CDT us Shayne Hussein MD LAB BLOOD ORDERABLES Final [facility] [place] [address] * (ABNORMAL) Basic metabolic panel (02/25/2025 10:30 PM CDT) Sodium 139 135 - 145 mmol/L Potassium, pl 3.7 3.3 - 4.9 mmol/L [facility] Chloride 101 97 - 110 mmol/L [facility] CO2 31 22 - 32 mmol/L [facility] Anion gap 7 2 - 15 mmol/L [facility] BUN 16 6 - 25 mg/dL [facility] Creatinine 0.78(L) 0.80 - 1.30 mg/dL [facility] Glucose 110 70 - 199 mg/dL [facility] Comment: Interpretive Data Fasting glucose >/= 126 [...] interpretive data was last revised 2022. Calcium 8.3(L) 8.5 - 10.3 mg/dL [facility] Blood 02/25/2025 10:3 0 PM CDT 02/25/2025 10:39 PM CDT us Shayne Hussein MD LAB BLOOD ORDERABLES Final R esult [facility] Department [place] [address] * (ABNORMAL) Potassium, whole blood (02/25/2025 2:44 PM CDT) Potassium, bld 3.2(L) 3.3 - 4.9 mmol/L Comment:Verified Blood 02/25/2025 2:44 PM CDT 02/25/2025 2:52 PM CDT Result [facility] Savannah Valenzuela MD PhD LAB BLOOD ORDERABLES Final [facility] Performing Organization Address [facility] Phone Number [facility] [place] [address] * (ABNORMAL) Troponin I high-sensitivity 4-hour (02/25/2025 2:14 PM CDT) Trop I hs 55(H) <=35 ng/L Comment: Interpretive Data For further hscTnI resources including the diagnostic algorithm and an aid in interpretation, copy and paste this link: https://bjhlab.testcatalog.org/show/hsTrop-[email or web address] Current Interpretive Data last revised 2020. Trop I hs delta -13 ng/L [facility] Trop I hs interp Equivocal [facility] Blood 02/25/2025 2:14 PM CDT 02/25/2025 3:45 PM CDT Result [facility] Savannah Valenzuela MD PhD LAB BLOOD ORDERABLES Final [facility] Performing Organization Address [facility] [place] [address] * Bladder Catheterization (02/25/2025 12:13 PM CDT) Narrative Ezekiel Roberts MD - 02/25/2025 12:13 PM CDT Ezekiel Roberts MD 02/25/2025 12:13 PM Bladder Catheterization Date/Time: 02/25/2025 12:13 PM Performed by: Ezekiel Roberts MD Authorized by: Ezekiel Roberts MD Procedure details: Provider performed due to: Altered anatomy Catheter type: Martínez Catheter size: 24 Fr Number of attempts: 1 Urine characteristics: Yellow Post-procedure details: Patient tolerance of procedure: Tolerated well, no immediate complications Comments: Suprapubic tube exchange Result [facility] Ezekiel Roberts MD IN CLINIC/BEDSIDE ORDERABLES Fin al Result * POCT Rapid HIV Antibody Community Screening-[place] Eligible (02/25/2025 11:20 AM CDT) Rapid HIV, POC Negative Negative Lot Number [id number] QC Control Line Acceptable Blood 02/25/2025 11:2 0 AM CDT Ezekiel Roberts MD POINT OF CARE TEST ORDERABLES Fi nal Result * (ABNORMAL) Urinalysis reflex to microscopic and culture Urine, suprapubic catheter (02/25/2025 11:19 AM CDT) Color, ur Straw Yellow Clarity, ur Clear Clear [facility] Specific gravity, ur 1.016 1.003 - 1.030 [facility] pH, urine 6.0 [facility] Comment: Interpretive Data U rine pH is affected by diet, medications, systemic acid-base disturbances, and renal tubular function. pH may affect urinary stone formation. For example, urine pH below 6.0 may help reduce the tendency for calcium phosphate stones and pH greater than 6.0 may reduce the tendency for uric acid stone formation. Source: [facility] [employer] Current Interpretive Data was last revised on 2017 Protein, ur ql 1+(A) Negative [facility] Glucose, ur ql Negative Negative [facility] Ketones, ur 2+(A) Negative [facility] Bilirubin, ur Negative Negative [facility] Blood, ur Trace(A) Negative [facility] Urobilinogen, ur <2.0 <2.0 mg/dL [facility] Nitrite, ur Negative Negative [facility] Leukocyte esterase, ur Negative Negative [facility] UA reflex comment Reflex to microscopic UA will be performed. [facility] Urine, suprapubic catheter 02/25/2025 11:19 AM CDT 02/25/2025 11:39 AM CDT Savannah Valenzuela MD PhD LAB MICROBIOLOGY - GENERAL ANTONIO WALKER Final Result [facility] [place] [address] * (ABNORMAL) Urinalysis, microscopic only (02/25/2025 11:19 AM CDT) WBC, ur 11-20(A) 0 - 5 /HPF RBC, ur 3-5(A) 0 - 2 /HPF [facility] Epithelial cells, squamous, ur 1-5 0 - 5 /HPF [facility] Mucous, ur Present(A) [facility] Culture Reflex Comment Reflex to urine culture will be performed. [facility] Urine, suprapubic catheter 02/25/2025 11:19 AM CDT 02/25/2025 11:39 AM CDT us Savannah Valenzuela MD PhD LAB URINE ORDERABLES Final Resu lt Performing Organization Address City/[facility]/ZIP Co de Phone Number [facility] [place] [address] * Urine culture Urine, suprapubic catheter (02/25/2025 11:19 AM CDT) Report Final Report: Less than 100,000 colonies/mL (clinically insignificant growth based on current clinical standards) Organism (CLINICALLY INSIGNIFICANT GROWTH [facility] Urine, suprapubic catheter 02/25/2025 11:19 AM CDT 02/25/2025 3:07 PM CDT Narrative [facility] - 02/26/2025 6:15 PM CDT Urine culture reflexed based upon urinalysis results. Testing performed by [facility] ([phone]) Savannah Valenzuela MD PhD LAB [facility]CROBIOLOGY - [facility] Final Result [facility] [place] [address] * (ABNORMAL) Troponin I high-sensitivity series (baseline, 2hr, 4hr, 6hr) (02/25/2025 10:01 AM CDT) Trop I hs 68(H) <=35 ng/L Comment: Interpretive Data For further hscTnI resources including the diagnostic algorithm and an aid in interpretation, copy and paste this link: https://bjhlab.testcatalog.org/show/hsTrop-[email or web address] Current Interpretive Data last revised 2020. Blood 02/25/2025 10:0 1 AM CDT 02/25/2025 10:49 AM CDT Savannah Valenzuela MD PhD LAB BLOOD ORDERABLES Final Resu lt [facility] Department [place] [address] * Sepsis Lactate w/ Reflex (02/25/2025 10:01 AM CDT) Pathologist [facility] Sepsis Lactate 0.8 0.7 - 2.0 mmol/L Blood 02/25/2025 10:0 1 AM CDT 02/25/2025 10:25 AM CDT Savannah Valenzuela MD PhD LAB BLOOD ORDERABLES Final Resu lt Performing Organization Address City/[facility]/ZIP Co de Phone Number [facility] Department [place] [address] * eGFR (02/25/2025 10:01 AM CDT) Pathologist [facility] eGFR 90 >=60 mL/min/1. 73 m2 Comment: Interpretive Data [...] interpretive data was last reviewed 2021. Blood 02/25/2025 10:0 1 AM CDT 02/25/2025 10:23 AM CDT us Savannah Valenzuela MD PhD LAB BLOOD ORDERABLES Final Resu lt [facility] Department [place] [address] * (ABNORMAL) Differential, auto (02/25/2025 10:01 AM CDT) Neutrophil abs 9.62(H) 1.50 - 6.50 K/cumm Imm gran abs 0.07 0.00 - 0.10 K/cumm [facility] Lymphocyte abs 0.47(L) 0.80 - 3.30 K/cumm [facility] Monocyte abs 1.19(H) 0.20 - 0.80 K/cumm [facility] Eosinophil abs 0.02 0.00 - 0.50 K/cumm [facility] Basophil abs 0.02 0.00 - 0.10 K/cumm [facility] Neutrophil pct 84.5 % [facility] Comment: Interpretive Data Percent cell count reference ranges are not reported, since discordance with absolute values may lead to misinterpretation of CBC data. Current Interpretive Data was last revised on 2017. Imm gran pct 0.6 % [facility] Comment: Interpretive Data Percent cell count reference ranges are not reported, since discordance with absolute values may lead to misinterpretation of CBC data. Current Interpretive Data was last revised on 2017. Lymphocyte pct 4.1 % [facility] Comment: Interpretive Data Percent cell count reference ranges are not reported, since discordance with absolute values may lead to misinterpretation of CBC data. Current Interpretive Data was last revised on 2017. Monocyte pct 10.4 % [facility] Comment: Interpretive Data Percent cell count reference ranges are not reported, since discordance with absolute values may lead to misinterpretation of CBC data. Current Interpretive Data was last revised on 2017. Eosinophil pct 0.2 % [facility] Comment: Interpretive Data Percent cell count reference ranges are not reported, since discordance with absolute values may lead to misinterpretation of CBC data. Current Interpretive Data was last revised on 2017. Basophil pct 0.2 % [facility] Comment: Interpretive Data Percent cell count reference ranges are not reported, since discordance with absolute values may lead to misinterpretation of CBC data. Current Interpretive Data was last revised on 2017. Blood 02/25/2025 10:0 1 AM CDT 02/25/2025 10:49 AM CDT Savannah Valenzuela MD PhD LAB BLOOD ORDERABLES Final Resu lt [facility] Department [place] [address] * (ABNORMAL) CBC with auto differential (02/25/2025 10:01 AM CDT) WBC 11.39(H) 3.80 - 9.90 K/cumm Hgb 9.2(L) 13.0 - 17.5 g/dL [facility] Hct 28.9(L) 38.9 - 50.3 % [facility] Plt 180 150 - 400 K/cumm [facility] MPV 10.3 9.1 - 12.3 fL [facility] RBC 3.29(L) 4.30 - 5.80 M/cumm [facility] MCV 87.8 81.3 - 96.4 fL [facility] MCH 28.0 27.1 - 33.3 pg [facility] MCHC 31.8(L) 32.3 - 35.7 g/dL [facility] RDW CV 15.1(H) 11.1 - 14.9 % [facility] RDW SD 48.9(H) 35.7 - 48.1 fL [facility] NRBC abs 0.00 0.00 - 0.01 K/cumm [facility] Blood 02/25/2025 10:0 1 AM CDT 02/25/2025 10:49 AM CDT Savannah Valenzuela MD PhD LAB BLOOD ORDERABLES Final Resu lt [facility] Department [place] [address] * Blood culture Blood Peripheral (02/25/2025 10:01 AM CDT) Report Final Report: No growth Blood (Peripheral) 02/25/2025 10:01 AM CDT 02/25/2025 10:26 AM CDT Narrative [facility] - 03/01/2025 12:01 PM CDT From a different site than #1. Draw Blood cultures before administration of Antibiotics Collection->Peripheral 1. Blood cultures are incubated for 4 [...] performance characteristics have been verified by the [facility]. For questions about this culture, contact the Microbiology Laboratory at [phone]. Interpretive data was last revised on 24. Savannah Valenzuela MD PhD LAB MICROBIOLOGY - GENERAL ANTONIO WALKER Final Result [facility] Department [place] [address] * Blood culture Blood Peripheral (02/25/2025 10:01 AM CDT) Report Final Report: No growth Blood (Peripheral) 02/25/2025 10:01 AM CDT 02/25/2025 10:26 AM CDT [facility] - 03/01/2025 12:01 PM CDT Draw Blood cultures before administration of Antibiotics Collection->Peripheral 1. Blood cultures are incubated for 4 [...] performance characteristics have been verified by the [facility]. For questions about this culture, contact the Microbiology Laboratory at [phone]. Interpretive data was last revised on 24. Savannah Valenzuela MD PhD LAB MICROBIOLOGY - GENERAL ANTONIO WALKER Final Result [facility] Department [place] [address] * Phosphorus (02/25/2025 10:01 AM CDT) Pathologist [facility] Phosphorus, pl 2.3 2.3 - 4.5 mg/dL Blood 02/25/2025 10:0 1 AM CDT 02/25/2025 10:23 AM CDT Ezekiel Roberts MD LAB BLOOD ORDERABLES Final Resul t Performing Organization Address City/[facility] de Phone Number [facility] Department [place] [address] * Magnesium (02/25/2025 10:01 AM CDT) [facility] Magnesium 2.0 1.4 - 2.5 mg/dL Blood 02/25/2025 10:0 1 AM CDT 02/25/2025 10:23 AM CDT Ezekiel Roberts MD LAB BLOOD ORDERABLES Final Resul t Performing Organization Address [facility] de Phone Number [facility] [place] [address] * (ABNORMAL) Comprehensive metabolic panel (02/25/2025 10:01 AM CDT) [facility] Sodium 143 135 - 145 mmol/L Potassium, pl 2.7(L) 3.3 - 4.9 mmol/L [facility] Chloride 100 97 - 110 mmol/L [facility] CO2 32 22 - 32 mmol/L [facility] Anion gap 11 2 - 15 mmol/L [facility] BUN 19 6 - 25 mg/dL [facility] Creatinine 0.87 0.80 - 1.30 mg/dL [facility] Glucose 114 70 - 199 mg/dL [facility] Comment: Interpretive Data Fasting glucose >/= 126 [...] interpretive data was last revised 2022. Calcium 8.3(L) 8.5 - 10.3 mg/dL [facility] Bilirubin, total 0.7 0.1 - 1.2 mg/dL [facility] Protein, pl 5.9(L) 6.5 - 8.5 g/dL [facility] Albumin 3.0(L) 3.5 - 5.0 g/dL [facility] Alk phos 77 40 - 130 Units/L [facility] ALT 18 7 - 55 Units/L [facility] AST 24 10 - 50 Units/L [facility] Blood 02/25/2025 10:0 1 AM CDT 02/25/2025 10:23 AM CDT Savannah Valenzuela MD PhD LAB BLOOD ORDERABLES Final Resu lt [facility] Department [place] [address] * ECG 12-LEAD (02/25/2025 9:57 AM CDT) Narrative [facility] - 02/25/2025 9:57 AM CDT Ezekiel Roberts MD 02/25/2025 10:01 AM ECG 12 lead Date/Time: 02/25/2025 9:57 AM Performed by: Ezekiel Roberts MD Authorized by: Savannah Valenzuela MD PhD Quality: Tracing quality: Limited by artifact (spinal stimulator) Rate: ECG rate: 76 ECG rate assessment: normal Rhythm: Rhythm: sinus rhythm Ectopy: Ectopy: none QRS: QRS axis: Normal QRS intervals: Normal Conduction: Conduction: abnormal Abnormal conduction: 1st degree ST segments: ST segments: Normal T waves: T waves: flattening Q waves: Q waves: V3, V4, V5 and V6 Previous ECG: Previous ECG: Compared to current Date of previous EC06/21/2024 Similarity: Changes noted (primarily negative deflection in septal leads now with possible Q waves) Interpretation: Interpretation: non-specific Recommended Follow-up: Recommended follow up: further workup in the ED Comments: No STEMI Savannah Valenzuela MD PhD ECG ORDERABLES Final Result [facility] * XR Chest 1 Vw Portable (02/25/2025 9:52 AM CDT) Anatomical Region Laterality Modality Body, Chest N/A Computed Radiogr aphy 02/25/2025 9:55 AM CDT Impressions 02/25/2025 11:03 AM CDT The current study is compared with the prior radiograph dated 06/21/2024. Right lung apex is partially obscured. Mild bibasilar atelectasis. Skinfolds overlie the right lower lung. Small bilateral pleural effusions may be present. No pneumothorax. Cardiomediastinal silhouette is within normal limits. Dictated by: Yolande Taylor M.D. The radiology attending physician has personally reviewed this study, and had reviewed and/or edited this written report and agrees with it. Electronically signed by: Radha Rg M.D. Narrative 02/25/2025 11:03 AM CDT EXAMINATION: 1 view chest radiograph Procedure Note Radha Rg MD - 02/25/2025 EXAMINATION: 1 view chest radiograph IMPRESSION: The current study is compared with the prior radiograph dated 06/21/2024. Right lung apex is partially obscured. Mild bibasilar atelectasis. Skinfolds overlie the right lower lung. Small bilateral pleural effusions may be present. No pneumothorax. Cardiomediastinal silhouette is within normal limits. Dictated by: Yolande Taylor M.D. The radiology attending physician has personally reviewed this study, and had reviewed and/or edited this written report and agrees with it. Electronically signed by: Radha Rg M.D. us Savannah Valenzuela MD PhD IMG XR PROCEDURES Final Result * eGFR (02/18/2025 6:56 PM CDT) eGFR 85 >=60 mL/min/1. 73 m2 Comment: Interpretive Data [...] interpretive data was last reviewed 2021. Blood 02/18/2025 6:56 PM CDT 02/18/2025 7:27 PM CDT Alena Meadows MD LAB BLOOD ORDERABLES Final Result [facility] Department of Laboratories [place], [place] [id number] * (ABNORMAL) CBC without differential (02/18/2025 6:56 PM CDT) WBC 14.61(H) 3.80 - 9.90 K/cumm Hgb 9.5(L) 13.0 - 17.5 g/dL [facility] Hct 30.1(L) 38.9 - 50.3 % [facility] Plt 207 150 - 400 K/cumm [facility] MPV 11.0 9.1 - 12.3 fL [facility] RBC 3.38(L) 4.30 - 5.80 M/cumm [facility] MCV 89.1 81.3 - 96.4 fL [facility] MCH 28.1 27.1 - 33.3 pg [facility] MCHC 31.6(L) 32.3 - 35.7 g/dL [facility] RDW CV 14.6 11.1 - 14.9 % [facility] RDW SD 46.8 35.7 - 48.1 fL [facility] NRBC abs 0.00 0.00 - 0.01 K/cumm [facility] Blood 02/18/2025 6:56 PM CDT 02/18/2025 7:28 PM CDT Alena Meadows MD LAB BLOOD ORDERABLES Final Result Performing Organization Address City/[facility] Co de Phone Number [facility] [place] [address] * Magnesium (02/18/2025 6:56 PM CDT) [facility] Magnesium 2.0 1.4 - 2.5 mg/dL Blood 02/18/2025 6:56 PM CDT 02/18/2025 7:27 PM CDT Alena Meadows MD LAB BLOOD ORDERABLES Final Result Performing Organization Address [facility] de Phone Number [facility] [place] [address] * (ABNORMAL) Comprehensive metabolic panel (02/18/2025 6:56 PM CDT) [facility] Sodium 138 135 - 145 mmol/L Potassium, pl 3.5 3.3 - 4.9 mmol/L [facility] Chloride 100 97 - 110 mmol/L [facility] CO2 30 22 - 32 mmol/L [facility] Anion gap 8 2 - 15 mmol/L [facility] BUN 22 6 - 25 mg/dL [facility] Creatinine 0.94 0.80 - 1.30 mg/dL [facility] Glucose 131 70 - 199 mg/dL [facility] Comment: Interpretive Data Fasting glucose >/= 126 [...] interpretive data was last revised 2022. Calcium 8.2(L) 8.5 - 10.3 mg/dL [facility] Bilirubin, total 0.4 0.1 - 1.2 mg/dL [facility] Protein, pl 5.9(L) 6.5 - 8.5 g/dL [facility] Albumin 2.9(L) 3.5 - 5.0 g/dL [facility] Alk phos 93 40 - 130 Units/L [facility] ALT 16 7 - 55 Units/L [facility] AST 17 10 - 50 Units/L [facility] Blood 02/18/2025 6:56 PM CDT 02/18/2025 7:27 PM CDT us Alena Meadows MD LAB BLOOD ORDERABLES Final Result [facility] Department [place] [address] * Sepsis Lactate w/ Reflex (02/17/2025 4:32 PM CDT) Pathologist [facility] Sepsis Lactate 0.9 0.7 - 2.0 mmol/L Blood 02/17/2025 4:32 PM CDT 02/17/2025 4:42 PM CDT us Juanita Rogers MD LAB BLOOD ORDERABLES Final Result [facility] Department [place] [address] * eGFR (02/17/2025 4:32 PM CDT) eGFR 74 >=60 mL/min/1. 73 m2 Comment: Interpretive Data [...] interpretive data was last reviewed 2021. Blood 02/17/2025 4:32 PM CDT 02/17/2025 4:43 PM CDT us Juanita Rogers MD LAB BLOOD ORDERABLES Final Result [facility] Department of Laboratories [place] [address] * (ABNORMAL) Differential, auto (02/17/2025 4:32 PM CDT) Neutrophil abs 12.39(H) 1.50 - 6.50 K/cumm Imm gran abs 0.08 0.00 - 0.10 K/cumm [facility] Lymphocyte abs 0.59(L) 0.80 - 3.30 K/cumm [facility] Monocyte abs 1.38(H) 0.20 - 0.80 K/cumm [facility] Eosinophil abs 0.06 0.00 - 0.50 K/cumm [facility] Basophil abs 0.02 0.00 - 0.10 K/cumm [facility] Neutrophil pct 85.3 % [facility] Comment: Interpretive Data Percent cell count reference ranges are not reported, since discordance with absolute values may lead to misinterpretation of CBC data. Current Interpretive Data was last revised on 2017. Imm gran pct 0.6 % [facility] Comment: Interpretive Data Percent cell count reference ranges are not reported, since discordance with absolute values may lead to misinterpretation of CBC data. Current Interpretive Data was last revised on 2017. Lymphocyte pct 4.1 % [facility] Comment: Interpretive Data Percent cell count reference ranges are not reported, since discordance with absolute values may lead to misinterpretation of CBC data. Current Interpretive Data was last revised on 2017. Monocyte pct 9.5 % [facility] Comment: Interpretive Data Percent cell count reference ranges are not reported, since discordance with absolute values may lead to misinterpretation of CBC data. Current Interpretive Data was last revised on 2017. Eosinophil pct 0.4 % [facility] Comment: Interpretive Data Percent cell count reference ranges are not reported, since discordance with absolute values may lead to misinterpretation of CBC data. Current Interpretive Data was last revised on 2017. Basophil pct 0.1 % [facility] Comment: Interpretive Data Percent cell count reference ranges are not reported, since discordance with absolute values may lead to misinterpretation of CBC data. Current Interpretive Data was last revised on 2017. Blood 02/17/2025 4:32 PM CDT 02/17/2025 4:44 PM CDT us Juanita Rogers MD LAB BLOOD ORDERABLES Final Result Performing Organization Address City/State/[facility] Co de Phone Number [facility] Department [place] [address] * (ABNORMAL) CBC with auto differential (02/17/2025 4:32 PM CDT) WBC 14.66(H) 3.80 - 9.90 K/cumm Hgb 9.8(L) 13.0 - 17.5 g/dL [facility] Hct 30.9(L) 38.9 - 50.3 % [facility] Plt 177 150 - 400 K/cumm [facility] MPV 11.0 9.1 - 12.3 fL [facility] RBC 3.44(L) 4.30 - 5.80 M/cumm [facility] MCV 89.8 81.3 - 96.4 fL [facility] MCH 28.5 27.1 - 33.3 pg [facility] MCHC 31.7(L) 32.3 - 35.7 g/dL [facility] RDW CV 14.6 11.1 - 14.9 % [facility] RDW SD 48.5(H) 35.7 - 48.1 fL [facility] NRBC abs 0.00 0.00 - 0.01 K/cumm [facility] Blood 02/17/2025 4:32 PM CDT 02/17/2025 4:44 PM CDT us Juanita Rogers MD LAB BLOOD ORDERABLES Final Result [facility] Department [place] [address] * Blood culture Blood Peripheral (02/17/2025 4:32 PM CDT) Report Final Report: No growth Blood (Peripheral) 02/17/2025 4:32 PM CDT 02/17/2025 4:48 PM CDT Narrative [facility] - 02/22/2025 7:00 AM CDT Received two aerobic blood culture bottles From a different site than #1. Draw Blood cultures before administration of Antibiotics Collection->Peripheral 1. Blood cultures are incubated for 4 [...] performance characteristics have been verified by the [facility]. For questions about this culture, contact the Microbiology Laboratory at [phone]. Interpretive data was last revised on 24. us Juanita Rogers MD LAB MICROBIOLOGY - GENERAL ORDERABLES Final Result [facility] Department [place] [address] * Blood culture Blood Peripheral (02/17/2025 4:32 PM CDT) Report Final Report: No growth Blood (Peripheral) 02/17/2025 4:32 PM CDT 02/17/2025 4:47 PM CDT Narrative [facility] - 02/22/2025 7:00 AM CDT Received two anaerobic blood culture bottles Draw Blood cultures before administration of Antibiotics Collection->Peripheral 1. Blood cultures are incubated for 4 [...] performance characteristics have been verified by the [facility]. For questions about this culture, contact the Microbiology Laboratory at [phone]. Interpretive data was last revised on 24. us Juanita Rogers MD LAB MICROBIOLOGY - GENERAL ORDERABLES Final Result [facility] Department [place] [address] * (ABNORMAL) Comprehensive metabolic panel (02/17/2025 4:32 PM CDT) Sodium 144 135 - 145 mmol/L Potassium, pl 3.3 3.3 - 4.9 mmol/L [facility] Chloride 104 97 - 110 mmol/L [facility] CO2 28 22 - 32 mmol/L [facility] Anion gap 12 2 - 15 mmol/L [facility] BUN 19 6 - 25 mg/dL [facility] Creatinine 1.05 0.80 - 1.30 mg/dL [facility] Glucose 98 70 - 199 mg/dL [facility] Comment: Interpretive Data Fasting glucose >/= 126 [...] 2022. Calcium 8.4(L) 8.5 - 10.3 mg/dL [facility] Bilirubin, total 0.5 0.1 - 1.2 mg/dL [facility] Protein, pl 6.4(L) 6.5 - 8.5 g/dL [facility] Albumin 3.1(L) 3.5 - 5.0 g/dL [facility] Alk phos 87 40 - 130 Units/L [facility] ALT 16 7 - 55 Units/L [facility] AST 18 10 - 50 Units/L [facility] Blood 02/17/2025 4:32 PM CDT 02/17/2025 4:43 PM CDT us Juanita Rogers MD LAB BLOOD ORDERABLES Final Result [facility] Department [place] [address] * (ABNORMAL) Urinalysis reflex to microscopic and culture Urine (02/17/2025 3:48 PM CDT) Color, ur Straw Yellow Clarity, ur Clear Clear [facility] Specific gravity, ur 1.015 1.003 - 1.030 [facility] pH, urine 6.0 [facility] Comment: Interpretive Data U rine pH is affected by diet, medications, systemic acid-base disturbances, and renal tubular function. pH may affect urinary stone formation. For example, urine pH below 6.0 may help reduce the tendency for calcium phosphate stones and pH greater than 6.0 may reduce the tendency for uric acid stone formation. Source: [facility] Current Interpretive Data was last revised on 2017 Protein, ur ql Trace Negative [facility] Glucose, ur ql Negative Negative [facility] Ketones, ur Trace Negative [facility] Bilirubin, ur Negative Negative [facility] Blood, ur Negative Negative [facility] Urobilinogen, ur <2.0 <2.0 mg/dL [facility] Nitrite, ur Negative Negative [facility] Leukocyte esterase, ur Trace(A) Negative [facility] UA reflex comment Reflex to microscopic UA will be performed. [facility] Urine 02/17/2025 3:48 PM CDT 02/17/2025 4:42 PM CDT us Jean Marie Ried MD LAB MICROBIOLOGY - GENE RAL ORDERABLES Final Result [facility] Department [place] [address] * Urinalysis, microscopic only (02/17/2025 3:48 PM CDT) WBC, ur 0-5 0 - 5 /HPF RBC, ur 0-2 0 - 2 /HPF [facility] Epithelial cells, squamous, ur 1-5 0 - 5 /HPF [facility] Urine 02/17/2025 3:48 PM CDT 02/17/2025 4:42 PM CDT Jean Marie Reid MD LAB URINE ORDERABLES Fi nal Result Performing Organization Address [facility] de Phone Number [facility] Department [place] [address] * Urine culture Urine, suprapubic catheter (02/17/2025 3:48 PM CDT) Report Final Report: Less than 100,000 colonies/mL (clinically insignificant growth based on current clinical standards) Organism (CLINICALLY INSIGNIFICANT GROWTH [facility] Urine, suprapubic catheter 02/17/2025 3:48 PM CDT 02/17/2025 4:40 PM CDT Narrative [facility] - 02/18/2025 6:14 PM CDT Specimen received in a sterile container. Indications for Culture:->Recent positive UA Testing performed by [facility] ([phone]) Jean Marie Reid MD LAB MICROBIOLOGY - GENE RAL ORDERABLES Final Result Performing Organization Address [facility] de Phone Number [facility] Department [place] [address] * COLONOSCOPY (01/01/2020 8:32 AM CDT) Anatomical Region Laterality Modality Other Narrative Procedure Note Madi Melendez MD - 01/01/2020 8:32 AM CDT ENDOSCOPY LAB Patient Name: Jerome Askew Procedure Date: 01/01/2020 8:32 AM Admit Type: Outpatient Room: [facility] Date of : 1950 Instrument Name: -[id number] Gender: Male Note Status: Finalized Procedure: Colonoscopy Indications: Abdominal pain in the left lower quadrant,constipation, date of last scope unknown, better with [id number] Comorbidities spastic paraplegia Providers: Madi Melendez M.D. [...] ago Cortney Viveros RN 02/10/2021 04/23/2024 Insurance [facility] MEDICARE [address] [place] [address] [facility] MEDICARE [employer] [facility] * Guarantor: Jerome Askew Account Type Relation to Patient Date of Phone Billing Address Personal/Family Self 1950 Power [facility] [address] [place] [address] MEDICARE [address] [place] [address] MEDICARE [employer] Advance Directives For more information, please contact: [phone] Documents on File Type Date Recorded Patient Support Staff Expl anation ADVANCE DIRECTIVE 03/15/2025 7:55 AM POLST ADVANCE DIRECTIVE 02/25/2025 11:32 AM POLS T ADVANCE DIRECTIVE 02/22/2025 11:19 AM POLS T ADVANCE DIRECTIVE 02/11/2021 10:49 AM DNR ADVANCE DIRECTIVE 12/27/2019 8:11 AM DNR ADVANCE DIRECTIVE 06/15/2013 12:00 AM [facility] [employer] * Full Code (Latest Code Status on File) Date Activated Date Inactivated Comments 02/25/2025 2:55 PM 03/05/2025 7:58 PM * Full Code Date Activated Date Inactivated Comments 02/17/2025 8:56 PM 02/19/2025 6:17 PM * Full Code Date Activated Date Inactivated Comments 06/21/2024 4:44 AM 06/23/2024 7:41 PM * Full Code Date Activated Date Inactivated Comments 04/24/2024 7:12 PM 04/26/2024 8:33 PM * Full Code Date Activated Date Inactivated Comments 10/26/2023 10:50 PM 10/27/2023 7:11 PM Care Teams Pet Sitting Relationship Specialty Start Date End Date Shant Loaiza MD [address] [facility] [address] PCP - General Internal Medicine 04/04/25
--- OUTSIDE RECORDS SUMMARY | 2025-04-14 11:00 | XMS_ITS | Encounter Summary ---
Author Organization [facility] Address 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 (Adt Cardiology-[facility]) [address] 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
--- OUTSIDE RECORDS SUMMARY | 2025-04-14 11:01 | XMS_ITS | Encounter Summary ---
Author Organization [facility] Address [address] [place] [address] Care Team Providers Care Drum Puller Name Role Phone Unavailable Primary Care Provider Unavailabl e Encounter Details Date Type Department Care Team (Late st Contact Info) Description 01/06/[address] 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
--- OUTSIDE RECORDS SUMMARY | 2025-04-14 11:01 | XMS_ITS | Encounter Summary ---
Author Organization [facility] Address [address] [place] [address] Care Team Providers Care Minilab Operator Name Role Phone Unavailable Primary Care Provider Unavailabl e Encounter Details Date Type Department Care Team (Late st Contact Info) Description 03/10/2006 Outpatient Historical [facility] Adult Hospitalists [address] [address] Rita Esqueda MD 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
--- OUTSIDE RECORDS SUMMARY | 2025-04-14 11:01 | XMS_ITS | Encounter Summary ---
Author Organization [facility] Address [address] [place] [address] Care Team Providers Care Chief Medical Technologist Name Role Phone Unavailable Primary Care Provider Unavailabl e Encounter Details Date Type Department Care Team (Late st Contact Info) Description 03/15/[address] 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
--- OUTSIDE RECORDS SUMMARY | 2025-04-14 11:01 | XMS_ITS | Encounter Summary ---
Author Organization [employer] Address 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 Gender Identity Not on file Sexual [...] ORDERABLES Final Res ult Performing Organization Address [facility] Phone Number INTERFACE SYSTEM Refer to clinic/hospital [...] ORDERABLES Final Res ult Performing Organization Address [facility] Phone Number INTERFACE SYSTEM Refer to clinic/hospital [...] ORDERABLES Final Resu lt Performing Organization Address [facility] [place] [facility] Phone Number INTERFACE SYSTEM Refer to clinic/hospital department * (ABNORMAL) POC GLUCOSE (01/08/2006 9:26 PM CDT) GLUCOSE POC 133(H) 65 - 109 mg/dL INTERFACE SYSTEM 01/08/2006 9:26 PM CDT José Fine MD POINT OF CARE TESTING Final Result Performing Organization Address [facility] Phone Number INTERFACE SYSTEM Refer to clinic/hospital department * (ABNORMAL) POC GLUCOSE (01/08/2006 5:25 PM CDT) GLUCOSE POC 125(H) 65 - 109 mg/dL INTERFACE SYSTEM 01/08/2006 5:25 PM CDT José Fine MD POINT OF CARE TESTING Final Result Performing Organization Address [facility] [place] [facility] Phone Number INTERFACE SYSTEM Refer to clinic/hospital department * (ABNORMAL) POC GLUCOSE (01/08/2006 11:50 AM CDT) GLUCOSE POC 122(H) 65 - 109 mg/dL INTERFACE SYSTEM 01/08/2006 11:5 0 AM CDT us José Fine MD POINT OF CARE TESTING Final Result Performing Organization Address [facility] Phone Number INTERFACE SYSTEM Refer to clinic/hospital department * (ABNORMAL) POC GLUCOSE (01/08/2006 5:35 AM CDT) GLUCOSE POC 128(H) 65 - 109 mg/dL INTERFACE SYSTEM 01/08/2006 5:35 AM CDT us José Fine MD POINT OF CARE TESTING Final Result Performing Organization Address [facility] Phone Number INTERFACE SYSTEM Refer to clinic/hospital department * (ABNORMAL) POC GLUCOSE (01/07/2006 8:48 PM CDT) GLUCOSE POC 124(H) 65 - 109 mg/dL INTERFACE SYSTEM 01/07/2006 8:48 PM CDT us José Fine MD POINT OF CARE TESTING Final Result Performing Organization Address [facility] Phone Number INTERFACE SYSTEM Refer to clinic/hospital department * (ABNORMAL) POC GLUCOSE (01/07/2006 4:51 PM CDT) GLUCOSE POC 121(H) 65 - 109 mg/dL INTERFACE SYSTEM 01/07/2006 4:51 PM CDT us José Fine MD POINT OF CARE TESTING Final Result Performing Organization Address [facility] [place] [facility] Phone Number INTERFACE SYSTEM Refer to clinic/hospital department * (ABNORMAL) POC GLUCOSE (01/07/2006 11:16 AM CDT) GLUCOSE POC 119(H) 65 - 109 mg/dL INTERFACE SYSTEM 01/07/2006 11:1 6 AM CDT us José Fine MD POINT OF CARE TESTING Final Result Performing Organization Address [facility] de Phone Number INTERFACE SYSTEM Refer to clinic/hospital department * (ABNORMAL) POC GLUCOSE (01/07/2006 6:24 AM CDT) GLUCOSE POC 114(H) 65 - 109 mg/dL INTERFACE SYSTEM 01/07/2006 6:24 AM CDT us José Fine MD POINT OF CARE TESTING Final Result Performing Organization Address [facility] [...] ORDERABLES Final Resu lt Performing Organization Address [facility] [...] ORDERABLES Final Resu lt Performing Organization Address [facility] de Phone Number INTERFACE SYSTEM Refer to clinic/hospital department * PHOSPHORUS (01/07/2006 5:30 AM CDT) PHOSPHORUS 3.1 2.5 - 4.5 mg/dL INTERFACE SYSTEM 01/07/2006 5:30 AM CDT Terry Cole MD CHEMISTRY ORDERABLES Final Resul t Performing Organization Address [facility] Phone Number INTERFACE SYSTEM Refer to clinic/hospital department * MAGNESIUM LEVEL (01/07/2006 5:30 AM CDT) MAGNESIUM 2.3 1.5 - 2.5 mg/dL INTERFACE SYSTEM 01/07/2006 5:30 AM CDT Terry Cole MD CHEMISTRY ORDERABLES Final Resul t Performing Organization Address [facility] Phone Number INTERFACE SYSTEM Refer to clinic/hospital [...] ORDERABLES Final Resul t Performing Organization Address [facility] de Phone Number INTERFACE SYSTEM Refer to clinic/hospital department * (ABNORMAL) POC GLUCOSE (01/07/2006 12:49 AM CDT) GLUCOSE POC 114(H) 65 - 109 mg/dL INTERFACE SYSTEM 01/07/2006 12:4 9 AM CDT us José Fine MD POINT OF CARE TESTING Final Result Performing Organization Address [facility] Phone Number INTERFACE SYSTEM Refer to clinic/hospital department * (ABNORMAL) POC GLUCOSE (01/06/2006 5:40 PM CDT) COMMENT, GLU POC Notified RN INTERFACE SYSTEM GLUCOSE POC 128(H) 65 - 109 mg/dL INTERFACE SYSTEM 01/06/2006 5:40 PM CDT us José Fine MD POINT OF CARE TESTING Final Result Performing Organization Address [facility] Phone Number INTERFACE SYSTEM Refer to clinic/hospital department * (ABNORMAL) POC GLUCOSE (01/06/2006 11:43 AM CDT) COMMENT, GLU POC Notified RN INTERFACE SYSTEM GLUCOSE POC 120(H) 65 - 109 mg/dL INTERFACE SYSTEM 01/06/2006 11:4 3 AM CDT us José Fine MD POINT OF CARE TESTING Final Result Performing Organization Address [facility] de Phone Number INTERFACE SYSTEM Refer to clinic/hospital department * (ABNORMAL) POC GLUCOSE (01/06/2006 5:48 AM CDT) GLUCOSE POC 120(H) 65 - 109 mg/dL INTERFACE SYSTEM 01/06/2006 5:48 AM CDT us José Fine MD POINT OF CARE TESTING Final Result Performing Organization Address [facility] Phone Number INTERFACE SYSTEM Refer [...] ORDERABLES Final Resu lt Performing Organization Address [facility]/ZIP Co de Phone Number INTERFACE SYSTEM [...] ORDERABLES Final Resul t Performing Organization Address [facility] [...] ORDERABLES Final Resul t Performing Organization Address [facility]/ZIP Co de Phone Number INTERFACE SYSTEM Refer to clinic/hospital department * (ABNORMAL) POC GLUCOSE (01/06/2006 1:00 AM CDT) GLUCOSE POC 142(H) 65 - 109 mg/dL INTERFACE SYSTEM 01/06/2006 1:00 AM CDT José Fine MD POINT OF CARE TESTING Final Result Performing Organization Address [facility] [place] [facility] Phone Number INTERFACE SYSTEM Refer to clinic/hospital department * (ABNORMAL) POC GLUCOSE (01/05/2006 5:49 PM CDT) GLUCOSE POC 137(H) 65 - 109 mg/dL INTERFACE SYSTEM 01/05/2006 5:49 PM CDT José Fine MD POINT OF CARE TESTING Final Result Performing Organization Address [facility] Phone Number INTERFACE SYSTEM Refer to clinic/hospital department * (ABNORMAL) POC GLUCOSE (01/05/2006 11:57 AM CDT) GLUCOSE POC 133(H) 65 - 109 mg/dL INTERFACE SYSTEM 01/05/2006 11:5 7 AM CDT José Fine MD POINT OF CARE TESTING Final Result Performing Organization Address [facility] Phone Number INTERFACE SYSTEM Refer to clinic/hospital department * (ABNORMAL) POC GLUCOSE (01/05/2006 5:59 AM CDT) GLUCOSE POC 142(H) 65 - 109 mg/dL INTERFACE SYSTEM 01/05/2006 5:59 AM CDT José Fine MD POINT OF CARE TESTING Final Result Performing Organization Address [facility] Phone Number INTERFACE SYSTEM Refer to clinic/hospital [...] SYSTEM 01/05/2006 4:00 AM CDT [facility] [employer]fer[employer] HEMATOLOGY ORDERABLES Final Result Performing Organization Address [facility] Phone Number INTERFACE SYSTEM Refer to clinic/hospital [...] fL INTERFACE SYSTEM 01/05/2006 4:00 AM CDT [employer] HEMATOLOGY ORDERABLES Final Result Performing Organization Address [facility] Phone Number INTERFACE SYSTEM Refer to clinic/hospital [...] for unfractionated heparin 01/05/2006 4:00 AM CDT [employer]jess[employer] HEMATOLOGY ORDERABLES Final Result Performing Organization Address [facility] Phone Number INTERFACE SYSTEM Refer to clinic/hospital department * PHOSPHORUS (01/05/2006 4:00 AM CDT) PHOSPHORUS 2.9 2.5 - 4.5 mg/dL INTERFACE SYSTEM 01/05/2006 4:00 AM CDT Luis Eduardo CNS Therapeuticsbrandt CHEMISTRY ORDERABLES Final R esult Performing Organization Address [facility] Phone Number INTERFACE SYSTEM Refer to clinic/hospital department * MAGNESIUM LEVEL (01/05/2006 4:00 AM CDT) MAGNESIUM 2.2 1.5 - 2.5 mg/dL INTERFACE SYSTEM 01/05/2006 4:00 AM CDT [employer] CHEMISTRY ORDERABLES Final R esult Performing Organization Address [facility] Phone Number INTERFACE SYSTEM Refer to clinic/hospital [...] ORDERABLES Final R esult Performing Organization Address [facility] Phone Number INTERFACE SYSTEM Refer to clinic/hospital department * (ABNORMAL) POC GLUCOSE (01/04/2006 11:41 PM CDT) GLUCOSE POC 140(H) 65 - 109 mg/dL INTERFACE SYSTEM 01/04/2006 11:4 1 PM CDT us José Fine MD POINT OF CARE TESTING Final Result Performing Organization Address [facility] Phone Number INTERFACE SYSTEM Refer to clinic/hospital department * (ABNORMAL) POC GLUCOSE (01/04/2006 5:43 PM CDT) GLUCOSE POC 156(H) 65 - 109 mg/dL INTERFACE SYSTEM 01/04/2006 5:43 PM CDT us José Fine MD POINT OF CARE TESTING Final Result Performing Organization Address [facility] Phone Number INTERFACE SYSTEM Refer to clinic/hospital department * (ABNORMAL) POC GLUCOSE (01/04/2006 11:37 AM CDT) GLUCOSE POC 175(H) 65 - 109 mg/dL INTERFACE SYSTEM 01/04/2006 11:3 7 AM CDT us José Fine MD POINT OF CARE TESTING Final Result Performing Organization Address [facility] Phone Number INTERFACE SYSTEM Refer to clinic/hospital department * (ABNORMAL) POC GLUCOSE (01/04/2006 6:11 AM CDT) GLUCOSE POC 183(H) 65 - 109 mg/dL INTERFACE SYSTEM 01/04/2006 6:11 AM CDT José Fine MD POINT OF CARE TESTING Final Result Performing Organization Address [facility] Phone Number INTERFACE SYSTEM Refer to clinic/hospital [...] ORDERABLES F inal Result Performing Organization Address [facility] Phone Number INTERFACE SYSTEM Refer to clinic/hospital [...] ORDERABLES F inal Result Performing Organization Address [facility] Phone Number INTERFACE SYSTEM Refer to clinic/hospital department * PHOSPHORUS (01/04/2006 4:20 AM CDT) PHOSPHORUS 2.5 2.5 - 4.5 mg/dL INTERFACE SYSTEM 01/04/2006 4:20 AM CDT us Rayray Wilcox MD CHEMISTRY ORDERABLES Fi nal Result Performing Organization Address [facility] Phone Number INTERFACE SYSTEM Refer to clinic/hospital department * MAGNESIUM LEVEL (01/04/2006 4:20 AM CDT) MAGNESIUM 2.0 1.5 - 2.5 mg/dL INTERFACE SYSTEM 01/04/2006 4:20 AM CDT Rayray Wilcox MD CHEMISTRY ORDERABLES Fi nal Result Performing Organization Address [facility] Phone Number INTERFACE SYSTEM Refer to clinic/hospital [...] ORDERABLES Final Re sult Performing Organization Address [facility]/ZIP Co de Phone Number INTERFACE SYSTEM Refer to clinic/hospital department * (ABNORMAL) POC GLUCOSE (01/04/2006 12:25 AM CDT) GLUCOSE POC 188(H) 65 - 109 mg/dL INTERFACE SYSTEM 01/04/2006 12:2 5 AM CDT José Fine MD POINT OF CARE TESTING Final Result Performing Organization Address [facility] de Phone Number INTERFACE SYSTEM Refer to clinic/hospital department * (ABNORMAL) POC GLUCOSE (01/03/2006 5:25 PM CDT) GLUCOSE POC 177(H) 65 - 109 mg/dL INTERFACE SYSTEM 01/03/2006 5:25 PM CDT José Fine MD POINT OF CARE TESTING Final Result Performing Organization Address [facility] de Phone Number INTERFACE SYSTEM Refer to clinic/hospital department * (ABNORMAL) POC GLUCOSE (01/03/2006 11:34 AM CDT) GLUCOSE POC 148(H) 65 - 109 mg/dL INTERFACE SYSTEM 01/03/2006 11:3 4 AM CDT José Fine MD POINT OF CARE TESTING Final Result Performing Organization Address [facility] [...] ORDERABLES F inal Result Performing Organization Address [facility] Phone Number INTERFACE SYSTEM Refer to clinic/hospital [...] ORDERABLES F inal Result Performing Organization Address [facility] Phone Number INTERFACE SYSTEM Refer to clinic/hospital [...] ORDERABLES F inal Result Performing Organization Address [facility] Phone Number INTERFACE SYSTEM Refer to clinic/hospital [...] ORDERABLES F inal Result Performing Organization Address [facility] Number INTERFACE SYSTEM Refer to clinic/hospital department * PHOSPHORUS (01/03/2006 10:46 AM CDT) PHOSPHORUS 3.3 2.5 - 4.5 mg/dL INTERFACE SYSTEM 01/03/2006 10:4 6 AM CDT Rayray Wilcox MD CHEMISTRY ORDERABLES Fi nal Result Performing Organization Address [facility] Phone Number INTERFACE SYSTEM Refer to clinic/hospital department * MAGNESIUM LEVEL (01/03/2006 10:46 AM CDT) MAGNESIUM 1.8 1.5 - 2.5 mg/dL INTERFACE SYSTEM 01/03/2006 10:4 6 AM CDT Rayray Wilcox MD CHEMISTRY ORDERABLES Fi nal Result Performing Organization Address [facility] Phone Number INTERFACE SYSTEM Refer to clinic/hospital [...] CHEMISTRY ORDERABLES nal Result Performing Organization Address [facility] Phone Number INTERFACE SYSTEM Refer to clinic/hospital [...] drugs of abuse are available on the [facility] Intranet at: [email or web address] Select: Drugs of Abuse ? [facility] To inquire about any potential cross-reactivity [...] URINE ORDERABLES Final Result Performing Organization Address [facility]/ZIP Co de Phone Number INTERFACE SYSTEM [...]
--- OUTSIDE RECORDS SUMMARY | 2025-04-14 11:01 | XMS_ITS | Encounter Summary ---
Author Organization [facility] Address 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
--- OUTSIDE RECORDS SUMMARY | 2025-04-14 11:01 | XMS_ITS | Clinical Summary ---
Author Organization [facility] Administrative Offices Address [address] [place] [address] Care Team Providers Care Test Engineering Intern Name Role Phone Unavailable Primary Care [...] daily. 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 Baclofen pump rx'd by the [facility]. 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
--- OUTSIDE RECORDS SUMMARY | 2025-04-14 11:01 | XMS_ITS | Encounter Summary ---
Author Organization [facility] Address [address] [place] [address] Care Team Providers Care Personal Fitness Manager Name Role Phone Unavailable Primary Care Provider Unavailabl e Encounter Details Date Type Department Care Team (Late st Contact Info) Description 03/14/2006 Outpatient Historical [facility] [address] [place] [phone] Devan Agrawal MD [address] [facility] 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
--- OUTSIDE RECORDS SUMMARY | 2025-04-14 11:01 | XMS_ITS | Clinical Summary ---
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 symptoms other than noted. Physical Findings - Vitals taken 07/15/2023 02:43 pm BP-Sitting L 120/60 mmHg BP Cuff Size Regular Pulse Rate-Sitting 67 bpm Pulse Rhythm Regular Respiration Rate 20 per min Weight 197 lbs Pain Level 7 Oxygen Saturation 97 % Vital Signs: - Pain level by numeric rating scale 7. Musculoskeletal System: General/bilateral: Musculoskeletal Scales: Value Lumbar oswestry score 54 Psychiatric: PHQ9 score:: Value PHQ9 score: 0 PHQ9 score: 0 HEENT: NC/AT. Anicteric. Clear Conjunctiva. PERRLA. MM's pink/moist. No lesions of nasal mucosa. No discharge via nares. No lesions of EAC. No discharge of EAC. No lesions of oropharynx. Oropharynx without erythema or exudate. Neck supple. No thyromegally. No palpable masses. No lymphadenopathy in cervical chain bilaterally. CVS: RRR. No murmurs. No gallops. No rubs. No peripheral edema. Peripheral pulses palpable in all extremities. Pulmonary: CTA bilaterally. No wheezes. No rales. No crackles. No rubs. Spine/MSK: Point tender over the right SI joint. Increased discomfort with flexion of the right hip, rotation of the right hip both internal and external. Negative straight leg raise. Physical exam limited due to quadraparesis and confinement to wheelchair.Baclofen pump located at the left quadrant of the abdomen. Gait: Not antalgic. No steppage gait. No Trendelenburg gait. No circumspected gait pattern. Heel walk normal. Toe walk normal. Tandem gait normal. Neuro: Awake. Alert. Oriented x3. Quadraparesis. No sensory level noted. Multiple abdominal scars. Generator located over the right lower quadrant. Psych: No apparent distress. Mood normal. Affect normal. No pain behaviors. Tests Educational Testing: SOAPP-R: total score: Value SOAPP-R: total score 1 SOAPP-R: total score 1 Assessment - [I10 - Essential (primary) hypertension] Essential hypertension - [M62.49 - Contracture of muscle, multiple sites] Muscle contracture of multiple sites - [M46.1 - Sacroiliitis, not elsewhere classified] Right sacroiliitis - [M54.6 - Pain in thoracic spine] Pain in thoracic spine - [R25.2 - Cramp and spasm] Spasms - [S14.156S - Other incomplete lesion at C6 level of cervical spinal cord, sequela] Spinal cord injury at the C5-C7 level with incomplete lesion of the cord - [G89.29 - Other chronic pain] Chronic pain - [T85.193A - Other mechanical complication of implanted electronic neurostimulator, generator, initial encounter] Mechanical complication of implanted electronic neurostimulator generator - [D50.9 - Iron deficiency anemia, unspecified] Anemia Therapy - Pain radiates to the right side of buttocks. - Clinical summary provided to patient. - A standard wheelchair. Discussed The preoperative H & P is done today in the office. No major problems are found. We will proceed with surgical intervention accordingly. Plan StartCited - Essential (primary) hypertension X-ray/OUTSIDE XRAYS: CHEST 2 VIEWS Instructions: preop screening Outside Procedures/Cardiology: EKG Instructions: EKG: preop screening. EndCited StartCited - Iron deficiency anemia, unspecified Lab: CMP Lab: CBC WITH DIFF Lab: MRSA SCREEN EndCited StartCited - Mech compl of implnt elec nstim, generator, init X-ray/OUTSIDE XRAYS: THORACIC SPINE 2 VIEWS, LS Spine, Complete Instructions: Localization/evaluation implanmted neurostimulator leads. Pain Management CPT: Neurostimulator lead and generator, implantable, Permanent Spinal Cord Stimulator Insert/Replace Instructions: Spinal cord stimulator battery exchange/replacement. Pocket revision. Possible lead revision General anesthesia in the left lateral decubitus position with local anesthetic. PCP, cardiology clearance as available. Preop CBC, CMP, EKG, chest x-ray, PT/INR. Not diabetic. Continue beta-tim. No blood thinners. Hold ASA/NSAIDs times 3 days before in 2 days after. PIV/2 g IV Ancef flight information expediter to operating room. Follow-up in 7 to 14 days for wound check. Lab: PROTIME (INR) EndCited Practice Management Use of tobacco assessment performed Review of medications documented; Standardized depression screening: negative for symptoms and for adult impression and score 0. A total of 61 minutes were spent on this patient's evaluation, as above, with greater than 50% of this time spent in direct [id number]-[id number] counseling and coordination of care. Results of this interaction were communicated directly to the patient's referring and/or primary care provider. All imaging studies and test results discussed in the above document were personally reviewed and evaluated by the performing provider. For all patients on acute or chronic opioids, ongoing need for opioid analgesia is assessed at each visit with consideration of discontinuation or wean to lowest effective dose when possible and appropriate. Contents of this document have been edited for correctness, but may be subject to typographical or heating operators engineer errors. Verify all diagnoses, medications, dosages, and patient instructions with patient and/or the originator of this document. Health Reminders - Assess Blood Pressure satisfied 07/15/2023. - Assess Tobacco Use satisfied 07/15/2023. - Depression Screening satisfied 07/15/2023. - Follow up plan for Depression Screening satisfied 07/15/2023.
--- OUTSIDE RECORDS SUMMARY | 2025-04-14 11:01 | XMS_ITS | Encounter Summary ---
Author Organization [facility] Address [address] [place] [address] Care Team Providers Care Police Records Clerk Name Role Phone Unavailable Primary Care Provider Unavailabl e Encounter Details Date Type Department Care Team (Late st Contact Info) Description 09/26/2019 Lab Requisition [facility] Laboratory Services [address] [place] [address] [facility], External Provider [id number] [place] [address] Unspecified abnormal findings in urine Social History Tobacco Use Types Packs/Day Years Used Date Smoking Tobacco: Never Assessed Sex and Gender Information Value Date Recorded Sex Assigned at Not on file 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 Gender Identity Not on file Sexual [...] - 145 mmol/L 09/26/2019 8:53 PM CDT [facility] LABORATORY SERVICES - [facility] POTASSIUM 5.1 3.4 - 5.1 mmol/L 09/26/2019 8:53 PM CDT [facility]OR[facility]ORY SERVICES - [facility] CHLORIDE 105 98 - 107 mmol/L 09/26/2019 8:53 PM [facility] CO2 23 22 - 29 mmol/L 09/26/2019 8:53 PM [facility] CALCIUM 8.6 8.6 - 10.4 mg/dL 09/26/2019 8:53 PM [facility] BUN 28(H) 6 - 20 mg/dL 09/26/2019 8:53 PM [facility] CREATININE 1.07 0.67 - 1.17 mg/dL 09/26/2019 8:53 PM [facility] Comment:The GFR result is no t clinically significant on patients <18 or >70 years of age. GLUCOSE 83 74 - 99 mg/dL 09/26/2019 8:53 PM [facility] TOTAL PROTEIN 6.7 6.3 - 8.7 g/dL 09/26/2019 8:53 PM [facility] ALBUMIN 4.2 3.5 - 5.2 g/dL 09/26/2019 8:53 PM [facility] BILIRUBIN TOTAL 0.3 0.2 - 1.3 mg/dL 09/26/2019 8:53 PM [facility] ALKALINE PHOSPHATASE 99 40 - 150 U/L 09/26/2019 8:53 PM [facility] AST 18 0 - 41 U/L 09/26/2019 8:53 PM [facility] ALT 18 0 - 41 U/L 09/26/2019 8:53 PM [facility] GFR >60 mL/min/1.7 3 sq meter 09/26/2019 8:53 PM [facility] Comment: eGFR has not been validated for [...] 3 sq meter 09/26/2019 8:53 PM CDT [facility] ANION GAP 14 8 - 16 mmol/L 09/26/2019 8:53 PM CDT [facility] Blood BLOOD SPECIMEN / Unknown Collection / Unknown 09/26/2019 3:44 PM CDT 09/26/2019 8:17 PM CDT us External Provider [facility] CHEMISTRY ORDERABLES Johanne l Result [facility] CLIA# [id number] [place] [address] * (ABNORMAL) CBC WITH DIFFERENTIAL (09/26/2019 3:44 PM CDT) WBC 6.6 4.5 - 10.5 K/uL 09/26/2019 8:26 PM CDT [facility] RBC 3.80(L) 4.50 - 5.40 M/uL 09/26/2019 8:26 PM CDT [facility] HEMOGLOBIN 11.5(L) 13.6 - 16.5 g/dL 09/26/2019 8:26 PM CDT [facility] HEMATOCRIT 34.3(L) 40.0 - 48.0 % 09/26/2019 8:26 PM CDT [facility] MCV 90.2 82.0 - 99.0 fL 09/26/2019 8:26 PM CDT [facility] MCH 30.2 27.8 - 34.5 pg 09/26/2019 8:26 PM CDT [facility] MCHC 33.5 32.5 - 35.5 g/dL 09/26/2019 8:26 PM CDT [facility] RDW 15.8(H) 11.5 - 14.5 % 09/26/2019 8:26 PM CDT [facility] PLATELETS 175 160 - 420 K/uL 09/26/2019 8:26 PM CDT [facility] LABORATORY [facility] MPV 10.2 8.7 - 12.7 fL 09/26/2019 8:26 PM CDT [facility] LABORATORY [facility] NEUTROPHILS 68 45 - 70 % 09/26/2019 8:26 PM CDT [facility] LABORATORY [facility] LYMPHOCYTES 16 16 - 45 % 09/26/2019 8:26 PM CDT [facility] LABORATORY [facility] MONOCYTES 10 3 - 13 % 09/26/2019 8:26 PM CDT [facility] LABORATORY SERVICES [facility] EOSINOPHILS 5 0 - 7 % 09/26/2019 8:26 PM CDT [facility] LABORATORY SERVICES [facility] BASOPHILS 1 0 - 2 % 09/26/2019 8:26 PM CDT [facility] LABORATORY [facility] NEUTROPHIL ABSOLUTE 4.50 1.90 - 7.00 K/uL 09/26/2019 8:26 PM CDT [facility] LABORATORY [facility] LYMPHOCYTE ABSOLUTE 1.10 0.70 - 4.50 K/uL 09/26/2019 8:26 PM CDT [facility] LABORATORY [facility] MONOCYTE ABSOLUTE 0.60 0.10 - 1.30 K/uL 09/26/2019 8:26 PM CDT [facility] LABORATORY [facility] EOSINOPHIL ABSOLUTE 0.40 0.00 - 0.70 K/uL 09/26/2019 8:26 PM CDT [facility] LABORATORY [facility] BASOPHILS ABSOLUTE 0.00 0.00 - 0.20 K/uL 09/26/2019 8:26 PM CDT [facility] LABORATORY [facility] Blood BLOOD SPECIMEN / Unknown Collection / Unknown 09/26/2019 3:44 PM CDT 09/26/2019 8:17 PM CDT us External Provider [facility] HEMATOLOGY ORDERABLES Fin al Result [facility] CLIA# [id number] [place] [address] * (ABNORMAL) URINALYSIS WITH REFLEX MICROSCOPIC (09/26/2019 3:00 PM CDT) COLOR UA Yellow Pale to Dark Yellow 09/26/2019 8:52 PM CDT [facility] CLARITY UA Slightly Cloudy(A) Clear 09/26/2019 8:52 PM CDT [facility] SPECIFIC GRAVITY UA 1.019 1.003 - 1.035 09/26/2019 8:52 PM CDT [facility] PH UA 5.0 5.0 - 8.0 09/26/2019 8:52 PM CDT [facility] LEUKOCYTE ESTERASE UA Negative Negative 09/26/2019 8:52 PM CDT [facility] NITRITE UA Negative Negative 09/26/2019 8:52 PM CDT [facility] PROTEIN UA Negative Negative 09/26/2019 8:52 PM CDT [facility] GLUCOSE UA Negative Negative 09/26/2019 8:52 PM CDT [facility] KETONES UA Negative Negative 09/26/2019 8:52 PM CDT [facility] UROBILINOGEN UA Normal <2.0 mg/dL 0 8:52 PM CDT [facility] BILIRUBIN UA Negative Negative 09/26/2019 8:52 PM CDT [facility] BLOOD UA Negative Negative 09/26/2019 8:52 PM CDT [facility] Comment:Ascorbic acid may ca use false negative results for blood. A microscopic review was reflexed to rule out this interference. WBC UA 0-2 0 - 2 /hpf 09/26/2019 8:52 PM [facility] RBC UA 0-2 0 - 2 /hpf 09/26/2019 8:52 PM CDT [facility] BACTERIA UA 1+(A) Negative /hpf 09/26/2019 8:52 PM CDT [facility] EPITHELIAL CELLS, URINE 0-5 0 - 5 /hpf 09/26/2019 8:52 PM CDT [facility] HYALINE CAST 0-2 None Seen, 0-2 /lpf 09/26/2019 8:52 PM CDT [facility] Ascorbic Acid UA Positive(A) Negative 020 8:52 PM CDT [facility] Urine URINE SPECIMEN OBTAINED BY CLEAN CATCH PROCEDURE / Unknown Collection / Unknown 09/26/2019 3:00 PM CDT 09/26/2019 8:17 PM CDT us External Provider [facility] URINE ORDERABLES Final Re sult [facility] CLIA# [id number] [place] [address] documented in this encounter Visit Diagnoses Diagnosis Unspecified abnormal findings in urine documented in this encounter
--- OUTSIDE RECORDS SUMMARY | 2025-04-14 11:01 | XMS_ITS | Encounter Summary ---
Author Organization [facility] Address [address] [place] [address] Care Team Providers Care Die Grinder Name Role Phone Unavailable Primary Care Provider Unavailabl e Encounter Details Date Type Department Care Team (Late st Contact Info) Description 01/09/2006 Outpatient Historical [facility] Trauma and General Surgery [address] [facility] [address] [phone] [place] [address] [place] [address] Social History Tobacco Use Types Packs/Day Years Used Date Smoking Tobacco: Never Assessed Sex and Gender Information Value Date Recorded Sex Assigned at Not on file 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
--- OUTSIDE RECORDS SUMMARY | 2025-04-14 11:01 | XMS_ITS | Encounter Summary ---
Author Organization [facility] Address [address] [place] [address] Care Team Providers Care Panel Wirer Name Role Phone Unavailable Primary Care Provider Unavailabl e Encounter Details Date Type Department Care Team (Late st Contact Info) Description 01/08/2006 Outpatient Historical [facility] Trauma and General Surgery [address] [facility] [address] [facility] [place] [address] Jayden James MD [address] [facility] [address] [facility] [place] [address] Social History Tobacco Use Types Packs/Day Years Used Date Smoking Tobacco: Never Assessed Sex and Gender Information Value Date Recorded Sex Assigned at Not on file 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
--- OUTSIDE RECORDS SUMMARY | 2025-04-14 11:01 | XMS_ITS | Encounter Summary ---
Author Organization [facility] Address 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 Gender Identity Not on file Sexual Orientation Not on file documented as of this encounter Plan of Treatment Not on file documented as of this encounter Procedures Procedure Name Priority Date/Time Associated Diagnosis Comments CBC WITH DIFFERENTIAL Stat 05/13/2019 4:50 PM ASSOCIATE WEB DEVELOPER Other fatigue BASIC METABOLIC PANEL Stat 05/13/2019 4:50 PM ASSOCIATE WEB DEVELOPER Other fatigue documented in this encounter Results * (ABNORMAL) CBC WITH DIFFERENTIAL (05/13/2019 4:50 PM ASSOCIATE WEB DEVELOPER) [facility] WBC 6.1 4.5 - 10.5 K/uL 05/13/2019 9:52 PM ASSOCIATE WEB DEVELOPER [facility] LABORATORY SERVICES [facility] RBC 4.04(L) 4.50 - 5.40 M/uL 05/13/2019 9:52 PM ASSOCIATE WEB DEVELOPER [facility] LABORATORY [facility] HEMOGLOBIN 12.1(L) 13.6 - 16.5 g/dL 05/13/2019 9:52 PM ASSOCIATE WEB DEVELOPER [facility] LABORATORY [facility] HEMATOCRIT 37.1(L) 40.0 - 48.0 % 05/13/2019 9:52 PM [facility] LABORATORY [facility] MCV 91.7 82.0 - 99.0 fL 05/13/2019 9:52 PM [facility] LABORATORY [facility] MCH 30.0 27.8 - 34.5 pg 05/13/2019 9:52 PM [facility] LABORATORY [facility] MCHC 32.7 32.5 - 35.5 g/dL 05/13/2019 9:52 PM [facility] LABORATORY [facility] RDW 14.9(H) 11.5 - 14.5 % 05/13/2019 9:52 PM [facility] LABORATORY [facility] PLATELETS 162 160 - 420 K/uL 05/13/2019 9:52 PM [facility] MPV 9.8 8.7 - 12.7 fL 05/13/2019 9:52 PM [facility] LABORATORY [facility] NEUTROPHILS 70 45 - 70 % 05/13/2019 9:52 PM [facility] LABORATORY [facility] LYMPHOCYTES 16 16 - 45 % 05/13/2019 9:52 PM [facility] LABORATORY [facility] MONOCYTES 10 3 - 13 % 05/13/2019 9:52 PM [facility] LABORATORY [facility] EOSINOPHILS 4 0 - 7 % 05/13/2019 9:52 PM [facility] LABORATORY [facility] BASOPHILS 1 0 - 2 % 05/13/2019 9:52 PM [facility] NEUTROPHIL ABSOLUTE 4.20 1.90 - 7.00 K/uL 05/13/2019 9:52 PM [facility] LYMPHOCYTE ABSOLUTE 0.90 K/uL 05/13/2019 9:52 PM [facility] LABORATORY [facility] MONOCYTE ABSOLUTE 0.60 K/uL 05/13/2019 9:52 PM [facility] LABORATORY [facility] EOSINOPHIL ABSOLUTE 0.30 0.00 - 0.70 K/uL 05/13/2019 9:52 PM [facility] LABORATORY [facility] BASOPHILS ABSOLUTE 0.00 K/uL 05/13/2019 9:52 PM [facility] Blood BLOOD SPECIMEN / Unknown Collection / Unknown 05/13/2019 4:50 PM ASSOCIATE WEB DEVELOPER 05/13/2019 9:42 PM ASSOCIATE WEB DEVELOPER us External Provider [facility] HEMATOLOGY ORDERABLES Fin al Result [facility] LESTER# [id number] [place] [address] * (ABNORMAL) BASIC METABOLIC PANEL (05/13/2019 4:50 PM ASSOCIATE WEB DEVELOPER) SODIUM 143 136 - 145 mmol/L 05/13/2019 10:11 PM [facility] POTASSIUM 4.2 3.4 - 5.1 mmol/L 05/13/2019 10:11 PM [facility] CHLORIDE 104 98 - 107 mmol/L 05/13/2019 10:11 PM [facility] CO2 27 22 - 29 mmol/L 05/13/2019 10:11 PM [facility] CALCIUM 8.5(L) 8.6 - 10.4 mg/dL 05/13/2019 10:11 PM [facility] BUN 24(H) 6 - 20 mg/dL 05/13/2019 10:11 PM [facility] CREATININE 1.09 0.70 - 1.20 mg/dL 05/13/2019 10:11 PM [facility] Comment:The GFR result is no t clinically significant on patients <18 or >70 years of age. GLUCOSE 96 74 - 99 mg/dL 05/13/2019 10:11 PM [facility] GFR >60 mL/min/1.7 3 sq meter 05/13/2019 10:11 PM [facility] Comment: eGFR has not been validated [...] mL/min/1.7 3 sq meter 05/13/2019 10:11 PM ASSOCIATE WEB DEVELOPER [facility] LABORATORY SERVICES [facility] ANION GAP 12 8 - 16 mmol/L 05/13/2019 10:11 PM ASSOCIATE WEB DEVELOPER [facility] LABORATORY [facility] Blood BLOOD SPECIMEN / Unknown Collection / Unknown 05/13/2019 4:50 PM ASSOCIATE WEB DEVELOPER 05/13/2019 9:42 PM ASSOCIATE WEB DEVELOPER External Provider [facility] CHEMISTRY ORDERABLES Johanne l Result [facility] LABORATORY [facility] CLIA# [id number] [place] [address] documented in this encounter Visit Diagnoses Diagnosis Other fatigue documented in this encounter
--- OUTSIDE RECORDS SUMMARY | 2025-04-14 11:01 | XMS_ITS | Encounter Summary ---
Author Organization [facility] Address [address] [place] [address] Care Team Providers Care Security Incident Handler Name Role Phone Unavailable Primary Care Provider Unavailabl e Encounter Details Date Type Department Care Team (Late st Contact Info) Description 01/10/2006 Outpatient Historical [facility] Trauma and General Surgery [address] [address] [address] [place] [address] [place] [address] Social History Tobacco Use Types Packs/Day Years Used Date Smoking Tobacco: Never Assessed Sex and Gender Information Value Date Recorded Sex Assigned at Not on file 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
--- OUTSIDE RECORDS SUMMARY | 2025-04-14 11:01 | XMS_ITS | Encounter Summary ---
Author Organization [facility] Address [address] [place] [address] Care Team Providers Care Barrel Assembler Helper Name Role Phone Unavailable Primary Care Provider Unavailabl e Encounter Details Date Type Department Care Team (Late st Contact Info) Description 01/04/2006 Outpatient Historical [facility] Trauma and General Surgery [address] [facility] [place] [address] Jayden James MD [address] [facility] [place] [address] Social History Tobacco Use Types Packs/Day Years Used Date Smoking Tobacco: Never Assessed Sex and Gender Information Value Date Recorded Sex Assigned at Not on file 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
--- OUTSIDE RECORDS SUMMARY | 2025-04-14 11:01 | XMS_ITS | Encounter Summary ---
Author Organization [employer] Address 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 Gender Identity Not on file Sexual Orientation [...] ABG ORDERABLES Final Result Performing Organization Address [facility] Phone Number INTERFACE SYSTEM Refer [...] ORDERABLES Final Re sult Performing Organization Address [facility] Phone Number INTERFACE SYSTEM Refer [...] fL INTERFACE SYSTEM 03/14/2006 4:37 AM [facility] Final Re sult Performing Organization Address [facility] Phone Number INTERFACE SYSTEM Refer to clinic/hospital department * MAGNESIUM LEVEL (03/14/2006 4:37 AM CDT) MAGNESIUM 2.0 1.5 - 2.5 mg/dL INTERFACE SYSTEM 03/14/2006 4:37 AM CDT Rita Esqueda MD CHEMISTRY ORDERABLES Final Res ult Performing Organization Address [facility] Phone Number INTERFACE SYSTEM Refer [...] mmol/L INTERFACE SYSTEM 03/14/2006 4:37 AM CDT [facility] CHEMI[facility] ORDERABLES Final Res ult Performing Organization Address [facility] Phone Number INTERFACE SYSTEM Refer to clinic/hospital department * (ABNORMAL) C-REACTIVE PROTEIN (03/14/2006 4:37 AM CDT) CRP 4.1(H) 0.0 - 0.8 mg/dL INTERFACE SYSTEM 03/14/2006 4:37 AM CDT [facility] CHEMISTRY ORDERABLES Final Res ult Performing Organization Address [facility] Phone Number INTERFACE SYSTEM Refer to clinic/hospital department * VANCOMYCIN LEVEL TROUGH (03/13/2006 1:02 PM CDT) VANCOMYCIN, TROUGH 8.7 5.0 - 15.0 ug/mL INTERFACE SYSTEM Comment: Vancomycin Trough Toxic Level= >15.0 ug/mL 03/13/2006 1:02 PM CDT [facility] CHEMI[facility] ORDERABLES Final Res ult Performing Organization Address [facility] Phone Number INTERFACE SYSTEM Refer [...] ORDERABLES Final R esult Performing Organization Address [facility] Phone Number INTERFACE SYSTEM Refer to clinic/hospital department * C-REACTIVE PROTEIN, CSF (03/12/2006 3:10 PM CDT) CRP, CSF 0.15 mg/dL INTERFACE SYSTEM Comment: Note: New methodology using CSF CRP (highly sensitive) assay is effective 12/11/03. No reference range has been established for CSF CRP. 03/12/2006 3:10 PM CDT Alexa Dillon MD BODY FLUIDS AND STOOLS Final Result Performing Organization Address [facility] Phone Number INTERFACE SYSTEM Refer [...] STOOLS Final Result Performing Organization Address [facility] Phone Number INTERFACE SYSTEM Refer to clinic/hospital department * (ABNORMAL) TOTAL PROTEIN, CSF (03/12/2006 3:10 PM CDT) PROTEIN, CSF 365(H) 15 - 45 mg/dL INTERFACE SYSTEM Comment: New CSF Protein Quantitative Methodology - Note New Reference Range. bloody sample 03/12/2006 3:10 PM CDT Aman Gottlieb DO BODY FLUIDS AND STOOLS Final Result Performing Organization Address [facility] Phone Number INTERFACE SYSTEM Refer [...] PM and read back verified. RBC, CSF 514059(H) <=0 /uL INTERFACE SYSTEM 03/12/2006 3:10 PM CDT us Aman Gottlieb DO BODY FLUIDS AND STOOLS Final Result Performing Organization Address [facility] de Phone Number INTERFACE SYSTEM [...] HEMATOLOGY ORDERABLES Final Result Performing Organization Address [facility] de Phone Number INTERFACE SYSTEM [...] HEMATOLOGY ORDERABLES Final Result Performing Organization Address [facility] Phone Number INTERFACE SYSTEM Refer [...] ORDERABLES Final R esult Performing Organization Address [facility] de Phone Number INTERFACE SYSTEM [...] HEMATOLOGY ORDERABLES Final Result Performing Organization Address [facility] de Phone Number INTERFACE SYSTEM [...] HEMATOLOGY ORDERABLES Final Result Performing Organization Address [facility] Co de Phone Number INTERFACE SYSTEM Refer to clinic/hospital department * (ABNORMAL) C-REACTIVE PROTEIN (03/11/2006 4:40 AM CDT) CRP 6.5(H) 0.0 - 0.8 mg/dL INTERFACE SYSTEM 03/11/2006 4:40 AM CDT Sushil Arroyo MD CHEMISTRY ORDERABLES Final R [facility] Performing Organization Address [facility] Phone Number INTERFACE SYSTEM Refer [...] Sushil Arroyo MD CHEMISTRY ORDERABLES Final [facility] Performing Organization Address [facility] Phone Number INTERFACE SYSTEM Refer [...] patients with mechanical heart valves or post SC. Pediatric (12 years and under): 1.5 - [...] HEMATOLOGY ORDERABLES Final Result Performing Organization Address [facility] Phone Number INTERFACE SYSTEM Refer [...] ORDERABLES Final Resul t Performing Organization Address [facility] de Phone Number INTERFACE SYSTEM [...] HEMATOLOGY ORDERABLES Final Result Performing Organization Address [facility] de Phone Number INTERFACE SYSTEM [...] patients with mechanical heart valves or post SC. Pediatric (12 years and under): 1.5 - [...] HEMATOLOGY ORDERABLES Final Result Performing Organization Address [facility] de Phone Number INTERFACE SYSTEM [...] patients with mechanical heart valves or post SC. Pediatric (12 years and under): 1.5 - [...] ORDERABLES Final Res ult Performing Organization Address [facility] de Phone Number INTERFACE SYSTEM [...] ORDERABLES Final Res ult Performing Organization Address [facility] Phone Number INTERFACE SYSTEM Refer [...] ORDERABLES Final Res ult Performing Organization Address [facility] Phone Number INTERFACE SYSTEM Refer to clinic/hospital department * (ABNORMAL) C-REACTIVE PROTEIN (03/08/2006 6:34 PM CDT) CRP 5.2(H) 0.0 - 0.8 mg/dL INTERFACE SYSTEM 03/08/2006 6:34 PM CDT us Keenan Mandujano MD CHEMISTRY ORDERABLES Final Resu lt Performing Organization Address [facility] [place] Phone Number INTERFACE SYSTEM Refer to clinic/hospital [...] URINE ORDERABLES Final Result Performing Organization Address [facility] Phone Number INTERFACE SYSTEM Refer [...] patients with mechanical heart valves or post SC. Pediatric (12 years and under): 1.5 - [...] HEMATOLOGY ORDERABLES Final Result Performing Organization Address [facility] Phone Number INTERFACE SYSTEM Refer [...] ORDERABLES Final Resul t Performing Organization Address [facility] Phone Number INTERFACE SYSTEM Refer [...] HEMATOLOGY ORDERABLES Final Result Performing Organization Address [facility] Phone Number INTERFACE SYSTEM Refer [...] HEMATOLOGY ORDERABLES Final Result Performing Organization Address [facility] de Phone Number INTERFACE SYSTEM [...] ORDERABLES Final R esult Performing Organization Address [facility] de Phone Number INTERFACE SYSTEM [...] patients with mechanical heart valves or post SC. Pediatric (12 years and under): 1.5 - [...] HEMATOLOGY ORDERABLES Final Result Performing Organization Address [facility] Phone Number INTERFACE SYSTEM Refer [...] URINE ORDERABLES Final Result Performing Organization Address [facility] Phone Number INTERFACE SYSTEM Refer [...] HEMATOLOGY ORDERABLES Final Result Performing Organization Address [facility] Phone Number INTERFACE SYSTEM Refer [...] HEMATOLOGY ORDERABLES Final Result Performing Organization Address [facility] Phone Number INTERFACE SYSTEM Refer [...] ORDERABLES Final R esult Performing Organization Address [facility] de Phone Number INTERFACE SYSTEM [...] HEMATOLOGY ORDERABLES Final Result Performing Organization Address [facility] Phone Number INTERFACE SYSTEM Refer [...] HEMATOLOGY ORDERABLES Final Result Performing Organization Address [facility] Co de Phone Number INTERFACE SYSTEM Refer [...] INTERFACE SYSTEM 02/26/2006 12:4 4 PM CDT [facility] HEMATOLOGY ORDERABLES Final Re sult Performing Organization Address [facility] de Phone Number INTERFACE SYSTEM Refer to clinic/hospital department * C-REACTIVE PROTEIN (02/26/2006 12:44 PM CDT) CRP 0.2 0.0 - 0.8 mg/dL INTERFACE SYSTEM 02/26/2006 12:4 4 PM CDT [facility] CHEMISTRY ORDERABLES Final Res ult Performing Organization Address [facility] de Phone Number INTERFACE SYSTEM [...] ORDERABLES Final Res ult Performing Organization Address [facility] Phone Number INTERFACE SYSTEM Refer [...] ORDERABLES Final Resul t Performing Organization Address [facility] Phone Number INTERFACE SYSTEM Refer [...] K/uL INTERFACE SYSTEM 02/25/2006 4:36 AM CDT [facility] HEMATOLOGY ORDERABLES Final Re sult Performing Organization Address [facility] de Phone Number INTERFACE SYSTEM [...] fL INTERFACE SYSTEM 02/25/2006 4:36 AM CDT [facility] HEMATOLOGY ORDERABLES Final Re sult Performing Organization Address [facility] Phone Number INTERFACE SYSTEM Refer [...] SYSTEM 02/25/2006 4:36 AM CDT [facility] Zaid CHEMISTRY ORDERABLES Final Res ult Performing Organization Address [facility] Phone Number INTERFACE SYSTEM Refer to clinic/hospital department * C-REACTIVE PROTEIN (02/25/2006 4:36 AM CDT) CRP 0.2 0.0 - 0.8 mg/dL INTERFACE SYSTEM 02/25/2006 4:36 AM CDT [facility] Zaid CHEMISTRY ORDERABLES Final Res ult Performing Organization Address [facility] Phone Number INTERFACE SYSTEM Refer [...] URINE ORDERABLES Final Result Performing Organization Address [facility] Phone Number INTERFACE SYSTEM Refer [...] patients with mechanical heart valves or post SC. Pediatric (12 years and under): 1.5 - [...] patients with mechanical heart valves or post SC. Pediatric (12 years and under): 1.5 - [...] HEMATOLOGY ORDERABLES Final Result Performing Organization Address [facility] Phone Number [...] patients with mechanical heart valves or post SC. Pediatric (12 years and under): 1.5 - [...] HEMATOLOGY ORDERABLES Final Result Performing Organization Address [facility] Phone Number INTERFACE SYSTEM Refer [...] ORDERABLES Final Resul t Performing Organization Address [facility] Phone Number INTERFACE SYSTEM Refer [...] patients with mechanical heart valves or post SC. Pediatric (12 years and under): 1.5 - [...] HEMATOLOGY ORDERABLES Final Result Performing Organization Address [facility] Phone Number INTERFACE SYSTEM Refer [...] patients with mechanical heart valves or post SC. Pediatric (12 years and under): 1.5 - [...] HEMATOLOGY ORDERABLES Final Result Performing Organization Address [facility] de Phone Number INTERFACE SYSTEM [...] ORDERABLES Final Resul t Performing Organization Address [facility] de Phone Number INTERFACE SYSTEM [...] patients with mechanical heart valves or post SC. Pediatric (12 years and under): 1.5 - [...] ORDERABLES Final Res ult Performing Organization Address [facility] Phone Number [...] patients with mechanical heart valves or post SC. Pediatric (12 years and under): 1.5 - [...] ORDERABLES Final Res ult Performing Organization Address [facility] Phone Number INTERFACE SYSTEM Refer [...] patients with mechanical heart valves or post SC. Pediatric (12 years and under): 1.5 - [...] HEMATOLOGY ORDERABLES Final Result Performing Organization Address [facility] de Phone Number INTERFACE SYSTEM [...] ORDERABLES Final Res ult Performing Organization Address [facility] Co de Phone Number INTERFACE SYSTEM Refer [...] ORDERABLES Final Res ult Performing Organization Address [facility] Co de Phone Number INTERFACE SYSTEM Refer [...] patients with mechanical heart valves or post SC. Pediatric (12 years and under): 1.5 - [...] HEMATOLOGY ORDERABLES Final Result Performing Organization Address [facility]/ZIP Co de Phone Number INTERFACE SYSTEM [...] ORDERABLES Final Resul t Performing Organization Address [facility] Phone Number INTERFACE SYSTEM Refer [...] HEMATOLOGY ORDERABLES Final Result Performing Organization Address [facility] Phone Number INTERFACE SYSTEM Refer [...] HEMATOLOGY ORDERABLES Final Result Performing Organization Address [facility] de Phone Number INTERFACE SYSTEM [...] ORDERABLES Final R esult Performing Organization Address [facility]/ZIP Co de Phone Number INTERFACE SYSTEM [...] patients with mechanical heart valves or post SC. Pediatric (12 years and under): 1.5 - [...] HEMATOLOGY ORDERABLES Final Result Performing Organization Address [place]/[facility] Co de Phone Number INTERFACE SYSTEM Refer [...] patients with mechanical heart valves or post SC. Pediatric (12 years and under): 1.5 - [...] ORDERABLES Final Resu lt Performing Organization Address [facility] de Phone Number INTERFACE SYSTEM [...] ORDERABLES Final Res ult Performing Organization Address [facility] de Phone Number INTERFACE SYSTEM [...] fL INTERFACE SYSTEM 01/31/2006 4:50 AM CDT Keeann Mandujano MD HEMATOLOGY ORDERABLES Final Res ult Performing Organization Address [facility] de Phone Number INTERFACE SYSTEM [...] patients with mechanical heart valves or post SC. Pediatric (12 years and under): 1.5 - [...] ORDERABLES Final Res ult Performing Organization Address [facility] Phone Number INTERFACE SYSTEM Refer [...] patients with mechanical heart valves or post SC. Pediatric (12 years and under): 1.5 - [...] ORDERABLES Final Res t Performing Organization Address [facility] Phone Number INTERFACE SYSTEM Refer [...] patients with mechanical heart valves or post SC. Pediatric (12 years and under): 1.5 - 3.0 Although the target range in children is not well established , INR values of 1.5 - 3.0 are recommended for most patients. Higher values have been used in children with prosthetic cardiac valves and hereditary clotting disorders. (<3 days) therapeutic ranges have not been established. 01/28/2006 4:52 AM CDT Result [facility] Keenan Mandujano MD HEMATOLOGY ORDERABLES Final [facility] Performing Organization Address [facility] Phone Number INTERFACE SYSTEM Refer [...] patients with mechanical heart valves or post SC. Pediatric (12 years and under): 1.5 - [...] ORDERABLES Final Res ult Performing Organization Address [facility] Phone Number INTERFACE SYSTEM Refer [...] patients with mechanical heart valves or post SC. Pediatric (12 years and under): 1.5 - [...] ORDERABLES Final Res ult Performing Organization Address [facility] Phone Number INTERFACE SYSTEM Refer [...] patients with mechanical heart valves or post SC. Pediatric (12 years and under): 1.5 - [...] ORDERABLES Final Res ult Performing Organization Address [facility] Phone Number [...] patients with mechanical heart valves or post SC. Pediatric (12 years and under): 1.5 - 3.0 Although the target range in children is not well established , INR values of 1.5 - 3.0 are recommended for most patients. Higher values have been used in children with prosthetic cardiac valves and hereditary clotting disorders. (<3 days) therapeutic ranges have not been established. 01/23/2006 4:57 AM CDT Result [facility] Keenan Mandujano MD HEMATOLOGY ORDERABLES Final Res ult Performing Organization Address [facility] Phone Number INTERFACE SYSTEM Refer [...] patients with mechanical heart valves or post SC. Pediatric (12 years and under): 1.5 - [...] ORDERABLES Final Res ult Performing Organization Address [facility] Phone Number INTERFACE SYSTEM Refer [...] ORDERABLES Final Resu lt Performing Organization Address [facility] Phone Number INTERFACE SYSTEM Refer [...] patients with mechanical heart valves or post SC. Pediatric (12 years and under): 1.5 - [...] ORDERABLES Final Res ult Performing Organization Address [facility] Phone Number INTERFACE SYSTEM Refer [...] patients with mechanical heart valves or post SC. Pediatric (12 years and under): 1.5 - [...] ORDERABLES Final Resu lt Performing Organization Address [facility] Phone Number INTERFACE SYSTEM Refer [...] patients with mechanical heart valves or post SC. Pediatric (12 years and under): 1.5 - [...] ORDERABLES Final Resu lt Performing Organization Address [place]/[facility] Co de Phone Number INTERFACE SYSTEM Refer [...] patients with mechanical heart valves or post SC. Pediatric (12 years and under): 1.5 - [...] HEMATOLOGY ORDERABLES Final Result Performing Organization Address [place]/[facility] Co de Phone Number INTERFACE SYSTEM Refer [...] ORDERABLES Final R esult Performing Organization Address [facility] Co de Phone Number INTERFACE SYSTEM Refer [...] ORDERABLES Final Resul t Performing Organization Address [facility]/ZIP Co de Phone Number INTERFACE SYSTEM Refer to clinic/hospital department documented in this encounter Visit Diagnoses Diagnosis Other specified rehabilitation procedure(V57.89)- Primary Other specified rehabilitation procedure documented in this encounter
--- OUTSIDE RECORDS SUMMARY | 2025-04-14 11:01 | XMS_ITS | Encounter Summary ---
Author Organization [facility] Address [address] [place] [address] Care Team Providers Care Furniture Salesperson Name Role Phone Unavailable Primary Care Provider Unavailabl e Encounter Details Date Type Department Care Team (Late st Contact Info) Description 03/16/[address] 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
--- OUTSIDE RECORDS SUMMARY | 2025-04-14 11:01 | XMS_ITS | Encounter Summary ---
Author Organization [facility] Address 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
--- OUTSIDE RECORDS SUMMARY | 2025-04-14 11:01 | XMS_ITS | Encounter Summary ---
Author Organization [employer] Address [address] [place] [address] Care Team Providers Care Bisque Finisher Name Role Phone Unavailable Primary Care Provider Unavailabl e Encounter Details Date Type Department Care Team (Latest Contact Info) Description 03/15/2006 Inpatient Historical HIS PATIENT IN A BED Yenny Hauser MD NO ADDRESS ON FILE Devan Agrawla MD 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 Gender Identity Not on file Sexual Orientation [...] Final R esult Performing Organization Address City/[facility] Phone Number INTERFACE SYSTEM [...] Final R esult Performing Organization Address City/[facility] Phone Number INTERFACE SYSTEM Refer to clinic/hospital department * MAGNESIUM LEVEL (03/19/2006 4:38 AM CDT) MAGNESIUM 1.7 1.5 - 2.5 mg/dL INTERFACE SYSTEM 03/19/2006 4:38 AM CDT Yenny Hauser MD CHEMISTRY ORDERABLES Final Re sult Performing Organization Address City/[facility] Co de Phone Number INTERFACE [...] Final Re sult Performing Organization Address City/[facility] Co de Phone Number INTERFACE SYSTEM Refer to clinic/hospital department * VANCOMYCIN LEVEL TROUGH (03/18/2006 11:30 AM CDT) Pathologist [facility] [place] VANCOMYCIN, TROUGH 11.5 5.0 - 15.0 ug/mL INTERFACE SYSTEM Comment: Vancomycin Trough Toxic Level= >15.0 ug/mL 03/18/2006 11:3 0 AM CDT Yenny Hauser MD CHEMISTRY ORDERABLES Final Re sult Performing Organization Address [facility] Co de Phone Number INTERFACE SYSTEM Refer to clinic/hospital department * (ABNORMAL) CBC WITH DIFFERENTIAL (03/18/2006 9:08 AM CDT) Pathologist [facility] NEUTROPHILS 76(H) 45 - 70 % INTERFAC [...] Final Res ult Performing Organization Address City/[facility] de Phone Number INTERFACE SYSTEM Refer [...] ORDERABLES Final Resu lt Performing Organization Address [facility] Phone Number INTERFACE SYSTEM [...] HEMATOLOGY ORDERABLES Final Result Performing Organization Address [facility] Phone Number INTERFACE SYSTEM [...] HEMATOLOGY ORDERABLES Final Result Performing Organization Address [facility] Phone Number INTERFACE SYSTEM Refer to clinic/hospital department * (ABNORMAL) C-REACTIVE PROTEIN (03/17/2006 4:45 AM CDT) CRP 2.4(H) 0.0 - 0.8 mg/dL INTERFACE SYSTEM 03/17/2006 4:45 AM CDT Historical Provider CHEMISTRY ORDERABLES Final R esult Performing Organization Address [facility] Phone Number INTERFACE SYSTEM [...] Final R esult Performing Organization Address City/[facility] Phone Number INTERFACE SYSTEM Refer to clinic/hospital department * (ABNORMAL) ACETONE QUALITATIVE (03/16/2006 6:30 PM CDT) ACETONE QUAL 2+ (30 mg/dL)(A) Neg (<10 mg/dL) INTERFACE SYSTEM 03/16/2006 6:30 PM CDT us Historical Provider CHEMISTRY ORDERABLES Final R esult Performing Organization Address [facility] Phone Number INTERFACE SYSTEM Refer to clinic/hospital department * LACTIC ACID (03/16/2006 6:30 PM CDT) LACTIC ACID 1.0 0.5 - 2.2 mmol/L INTERFACE SYSTEM 03/16/2006 6:30 PM CDT us Historical Provider CHEMISTRY ORDERABLES Final R esult Performing Organization Address [facility] Phone Number INTERFACE SYSTEM [...] ORDERABLES Final Resu lt Performing Organization Address [facility] Phone Number INTERFACE SYSTEM [...] HEMATOLOGY ORDERABLES Final Result Performing Organization Address City/[facility] Phone Number INTERFACE SYSTEM [...] Final R esult Performing Organization Address City/[facility] de Phone Number INTERFACE SYSTEM Refer [...] Res ult Performing Organization Address [facility] Phone Number INTERFACE SYSTEM [...] Res ult Performing Organization Address [facility] de Phone Number INTERFACE SYSTEM Refer [...]
--- OUTSIDE RECORDS SUMMARY | 2025-04-14 11:01 | XMS_ITS | Encounter Summary ---
Author Organization [facility] Address [address] [place] [address] Care Team Providers Care Highway Construction Inspector Name Role Phone Unavailable Primary Care Provider Unavailabl e Encounter Details Date Type Department Care Team (Late st Contact Info) Description 01/11/2006 Outpatient Historical [facility] Trauma and General Surgery [address] [phone] [place] [address] [place] [address] Social History Tobacco Use Types Packs/Day Years Used Date Smoking Tobacco: Never Assessed Sex and Gender Information Value Date Recorded Sex Assigned at Not on file 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
--- OUTSIDE RECORDS SUMMARY | 2025-04-14 11:01 | XMS_ITS | Encounter Summary ---
Author Organization [employer] Address 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 Gender Identity Not on file Sexual [...] ORDERABLES Final Re sult Performing Organization Address [facility] Phone Number INTERFACE SYSTEM Refer to clinic/hospital department * C-REACTIVE PROTEIN (04/05/2006 5:15 AM CDT) Pathologist [facility] [place] CRP 0.2 0.0 - 0.8 mg/dL INTERFACE SYSTEM 04/05/2006 5:15 AM CDT [facility] CHEMISTRY ORDERABLES Final Res ult Performing Organization Address [facility] Phone Number INTERFACE SYSTEM Refer to [...] ORDERABLES Final R esult Performing Organization Address [facility] Phone Number INTERFACE SYSTEM Refer to [...] ORDERABLES Final Res ult Performing Organization Address [facility] Phone Number INTERFACE SYSTEM Refer to [...] ORDERABLES Final Res ult Performing Organization Address [facility] Phone Number INTERFACE SYSTEM Refer to clinic/hospital department * C-REACTIVE PROTEIN (03/29/2006 5:15 AM CDT) CRP 0.3 0.0 - 0.8 mg/dL INTERFACE SYSTEM 03/29/2006 5:15 AM CDT us Keenan Mandujano MD CHEMISTRY ORDERABLES Final Resu lt Performing Organization Address [facility] Phone Number INTERFACE SYSTEM Refer to [...] ORDERABLES Final Resu lt Performing Organization Address [facility] Phone Number INTERFACE SYSTEM Refer to [...] ORDERABLES Final Re sult Performing Organization Address [facility] Phone Number INTERFACE SYSTEM Refer to [...] INTERFACE SYSTEM 03/24/2006 12:1 0 PM CDT [facility] HEMATOLOGY ORDERABLES Final Re sult Performing Organization Address [facility] Phone Number INTERFACE SYSTEM Refer to clinic/hospital department * VANCOMYCIN LEVEL TROUGH (03/24/2006 12:10 PM CDT) VANCOMYCIN, TROUGH 11.3 5.0 - 15.0 ug/mL INTERFACE SYSTEM Comment: Vancomycin Trough Toxic Level= >15.0 ug/mL 03/24/2006 12:1 0 PM CDT [employer] [facility] CHEMISTRY ORDERABLES Final Res ult Performing Organization Address [facility] Phone Number INTERFACE SYSTEM Refer to clinic/hospital department * C-REACTIVE PROTEIN (03/24/2006 12:10 PM CDT) CRP 0.6 0.0 - 0.8 mg/dL INTERFACE SYSTEM 03/24/2006 12:1 0 PM CDT [employer] CHEMISTRY ORDERABLES Final Res ult Performing Organization Address [facility] Phone Number INTERFACE SYSTEM Refer to [...] ORDERABLES Final Res ult Performing Organization Address City/[facility] Co de Phone Number INTERFACE SYSTEM [...] INTERFACE SYSTEM 03/23/2006 11:3 0 AM CDT [employer] [facility] HEMATOLOGY ORDERABLES Final Re sult Performing Organization Address [facility] de Phone [...] INTERFACE SYSTEM 03/23/2006 11:3 0 AM CDT [employer] [facility] HEMATOLOGY ORDERABLES Final Re sult Performing Organization Address City/[facility] Co de Phone Number INTERFACE SYSTEM Refer to clinic/hospital department * VANCOMYCIN LEVEL TROUGH (03/23/2006 11:30 AM CDT) VANCOMYCIN, TROUGH 6.2 5.0 - 15.0 ug/mL INTERFACE SYSTEM Comment: Vancomycin Trough Toxic Level= >15.0 ug/mL 03/23/2006 11:3 0 AM CDT [employer] [facility] CHEMISTRY ORDERABLES Final Res ult Performing Organization Address [facility] Phone Number INTERFACE SYSTEM Refer to clinic/hospital department * (ABNORMAL) C-REACTIVE PROTEIN (03/23/2006 11:30 AM CDT) CRP 1.0(H) 0.0 - 0.8 mg/dL INTERFACE SYSTEM 03/23/2006 11:3 0 AM CDT us [facility] CHEMISTRY ORDERABLES Final Res ult Performing Organization Address [facility] Phone Number INTERFACE SYSTEM Refer to [...] INTERFACE SYSTEM 03/23/2006 11:[address] [facility] CHEMISTRY ORDERABLES Final Res ult Performing Organization Address [facility] Phone Number INTERFACE SYSTEM Refer to [...] Organization Address [facility] Phone Number INTERFACE SYSTEM Refer to [...] /HPF INTERFACE SYSTEM 03/22/2006 8:30 PM CDT [facility] URINE ORDERABLES Final Result Performing Organization Address [facility] Phone Number INTERFACE SYSTEM Refer to [...] Arroyo MD CHEMISTRY ORDERABLES Final R [facility] Performing Organization Address [facility] de Phone [...] Arroyo MD CHEMISTRY ORDERABLES Final R [facility] Performing Organization Address City/[facility] de Phone [...] HEMATOLOGY ORDERABLES Final Result Performing Organization Address [facility] Phone Number INTERFACE SYSTEM Refer to [...] HEMATOLOGY ORDERABLES Final Result Performing Organization Address [facility] Phone Number INTERFACE SYSTEM Refer to [...] Organization Address [facility] Phone Number INTERFACE SYSTEM Refer to [...] ORDERABLES Final Resul t Performing Organization Address [facility] Phone Number INTERFACE SYSTEM Refer to clinic/hospital department documented in this encounter Visit Diagnoses Diagnosis Other specified rehabilitation procedure(V57.89)- Primary Other specified rehabilitation procedure documented in this encounter
[2025-04-14 11:47] VITALS: BP 118/62; PULSE 66; RESP 17; O2SAT 100
--- NOTE | 2025-04-14 11:47 | PC.NURSE ---
Pt suprapubic catheter changed by EDP to Bardex Martínez Catheter 24Fr. 30cc balloon
[2025-04-14 12:47] VITALS: BP 133/59; PULSE 70; RESP 15; O2SAT 98
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
[2025-04-14 14:43] VITALS: BP 135/65; PULSE 67; RESP 16; O2SAT 100
== END 2025-04-14 14:44 | disposition home or self-care (01) ==
PROVIDERS: Emergency Provider Emergency Medicine
DX: N48.89 Other specified disorders of penis (principal); N39.0 Urinary tract infection, site not specified; I69.998 Other sequelae following unspecified cerebrovascular disease; H53.8 Other visual disturbances; I10 Essential (primary) hypertension; G82.54 Quadriplegia, C5-C7 incomplete; S14.105S Unspecified injury at C5 level of cervical spinal cord, sequela; K59.2 Neurogenic bowel, not elsewhere classified; N31.9 Neuromuscular dysfunction of bladder, unspecified; G89.4 Chronic pain syndrome; K21.9 Gastro-esophageal reflux disease without esophagitis; F32.A Depression, unspecified; Z86.2 Personal history of diseases of the blood and blood-forming organs and certain disorders involving the immune mechanism; Z86.16 Personal history of COVID-19; Z86.718 Personal history of other venous thrombosis and embolism; Z87.891 Personal history of nicotine dependence; Z79.899 Other long term (current) drug therapy; V29.99XS Rider (driver) (passenger) of other motorcycle injured in unspecified traffic accident, sequela
CPT/HCPCS: 51705; 99283

== ENCOUNTER 2025-04-23 01:42 | Day surgery (SDC) | payer MEDICARE, MEDICAID, SELFPAY ==
--- NOTE | 2025-04-16 11:48 | PC.NURSE ---
[facility] has started construction of its new state of the art ER which will open Spring 2026. With this, we anticipate parking may be a challenge for some our surgical patients and families. Parking spaces are limited but are available for all Surgical, obstetrics, and ER patients sharing this lot. If you arrive and find you are having a hard time finding a parking space, please note that we understand the challenges, please drive around the hospital and park near Hospital Entrance 1. When you enter this entrance, you can ask a volunteer to direct or take you back to the surgical waiting area to check in. We appreciate everyone?s understanding of these expected challenges while we build for your future. Report to the Outpatient Waiting Room, entrance under the green pavilion located off [address], at time __3:00 PM on date __04/23/25 . Planned Procedure Time: __4:00 PM .? Time changes happen often and if your time is changed the preop area will call you the afternoon before. - You and your visitor will be asked to self-screen and do not enter if you have any COVID symptoms. Please call surgeon if you need to reschedule. - A mask is optional within the hospital at this time. MAY HAVE LIGHT BREAKFAST/LUNCH DAY OF SURGERY PER DR STEINER NOTHING TO EAT OR DRINK 2 HOURS PRIOR TO SURGERY PER DR STEINER Take only the following medications with a SIP of water on the morning of surgery: __ALL ROUTINE MEDICATIONS DO NOT STOP ANY OF YOUR OTHER PRESCRIPTION MEDICATIONS PRIOR TO SURGERY EXCEPT THE FOLLOWING Hold all vitamins and supplements for 3 days per anesthesiologist. Medications to discontinue per physician Date to take last dose Please no make-up, nail yi, hairspray, perfume, deodorant, or body powder the day of surgery.? No jewelry (including any body piercings) or valuables the day of surgery, leave them at home.? Please take a shower or bath the night before, AND the morning of, surgery with an antibacterial soap.? Wear comfortable, loose fitting clothing.? Children are encouraged to wear pajamas. - Jewelry must be removed prior to entering the operating room.? Rings and piercings that are not removed may be cut off. - The hospital will not accept responsibility for valuables.? - Please leave all valuables, including medications, at home the day of surgery. If you are going home after surgery, a licensed refrigerated national truck driver must drive you home.? - NO public transportation without another adult if you receive anesthesia. - We recommend that an adult stay with you for 24 hours following discharge. - We also recommend that you do not drive, make important decision, drink alcoholic beverages, or take any drugs that were not prescribed by your health care provider for at least 24 hours after your discharge time. For Pediatric surgeries, we recommend two adults accompany the child home. Follow any additional instructions given to you from your surgeon. Telephone instructions given to _PRE OP INSTRUCTIONS FAXED TO [facility] AT 1150 ON 04/16/25 .VERBAL INSTRUCTIONS GIVEN TO PATIENT and asked if any additional questions and then verbalized understanding. Patient advised to call surgeon office or pre surgery nurse liaison [phone] if any additional questions.
[2025-04-16 11:57] VITALS: BMI 18.8
--- NOTE | ~2025-04-23 | XR_ITS ---
EXAMINATION: XR fluoroscopy no charge DATE: 04/23/2025 15:02 INDICATION: Right sacroiliac joint therapeutic intra-articular steroid injection TECHNIQUE: 5 fluoroscopic images of the right sacroiliac joint were obtained during procedure performed by Dr. Syed. Radiologist was not present for the imaging or procedure. The amount of fluoroscopy time used during this procedure was 0.2 minutes. Total DAP was 1.401 mGym^2. COMPARISON: CT dated 01/14/2025 FINDINGS: Images demonstrate needle advanced into the right sacroiliac joint. There is a stimulator lead projecting over the soft tissues overlying the right posterior iliac spine slightly lateral to the course of the needle. IMPRESSION: 1. Fluoroscopy utilized during right sacral joint injection. Reviewed, dictated and finalized at location A.
--- OUTSIDE RECORDS SUMMARY | 2025-04-23 01:45 | XMS_ITS ---
Care Plan - [facility] Created on: April 23, 2025 JEROME ASKEW : 1950 Sex: Male Author Organization [facility] Address [address] [place] [address] Phone Care Team Providers Care Tube Depatcher Name Role Phone JATIN STEPHEN, LUAN Garcia Unavailable [phone]
--- OUTSIDE RECORDS SUMMARY | 2025-04-23 01:46 | XMS_ITS | Clinical Summary ---
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 MCV 91.8 81.3 - 96.4 fL [facility] MCH 27.7 27.1 - 33.3 pg [facility] MCHC 30.1(L) 32.3 - 35.7 g/dL [facility] RDW CV 15.5(H) 11.1 - 14.9 % [facility] RDW SD 52.6(H) 35.7 - 48.1 fL [facility] NRBC abs 0.00 0.00 - 0.01 K/cumm [facility] Blood 03/01/2025 8:02 PM CDT 03/01/2025 8:27 PM CDT Lucy Ho NP LAB BLOOD ORDERABLES Fin al Result Performing Organization Address City/[facility]/ZIP Co de Phone Number [facility] Department [place] [address] * (ABNORMAL) Type and screen (03/01/2025 8:02 PM CDT) Pathologist [facility] Bonifacio, indirect Positive(A) ABO Rh O Positive [facility] Blood 03/01/2025 8:02 PM CDT 03/01/2025 8:26 PM CDT Narrative [facility] - 03/01/2025 9:23 PM CDT Has the patient had Daratumumab or Isatuximab in the past 6 months?->Unknown Marilyn Morgan MD LAB BLOOD BANK TEST ORDERABLES F inal Result [facility] Department [place] [address] * (ABNORMAL) Basic metabolic panel (03/01/2025 8:02 PM CDT) Sodium 146(H) 135 - 145 mmol/L Potassium, pl 4.4 3.3 - 4.9 mmol/L [facility] Chloride 106 97 - 110 mmol/L [facility] CO2 34(H) 22 - 32 mmol/L [facility] Anion gap 6 2 - 15 mmol/L [facility] BUN 13 6 - 25 mg/dL [facility] Creatinine 0.72(L) 0.80 - 1.30 mg/dL [facility] Glucose 134 70 - 199 mg/dL [facility] Comment: Interpretive Data Fasting glucose [...] 2022. Calcium 7.9(L) 8.5 - 10.3 mg/dL [facility] Blood 03/01/2025 8:02 PM CDT 03/01/2025 8:27 PM CDT us Lucy Ho NP LAB BLOOD ORDERABLES Fin al Result [facility] [place] [address] * IMPORT EXPORT MANAGER Evaluate and Treat (FEES) (03/01/2025 11:34 AM CDT) Narrative [facility] - 03/01/2025 11:34 AM CDT Zohreh Petersen SLP 03/01/2025 4:48 PM Speech-Language Pathology: Flexible Endoscopic [...] diet/thin liquids General Information Jerome Askew 03/01/25 IMPORT EXPORT MANAGER Received On: 03/01/25 General Observations: Pt seen sitting upright in bed, alert, cooperative, able to follow simple commands. Pain Score: 0 If pain >4, was RN notified? N/A Patient Stated Goal/Comments: Pt did not state any ST related goals/comments. Clinical Impression & Professional Recommendations Diet Solids Recommendation: Dysphagia diet-Soft (tender/chopped meat) Diet Liquids Recommendations: [place] thick (No ice in drinks, no ice [...] deficits Secretions: Minimal Consistencies Administered: Thin liquids, [place] thick liquids, Purees, Solids Thin Liquids: Laryngeal Penetration: Present Aspiration Present: Yes Timing: Before Amount: Moderate Response to aspiration: None Cough: Non-productive Unsuccessful Modifications: Chin tuck, Repeat swallow, Cough Penetration Aspiration Scale-Thin: 8-Material enters the airway, passes below the vocal folds and no effort is made to eject Paterson Scale-Vallecular Residue-Thin Liquids: Mild Paterson Scale-Pyriform Sinus Residue-Thin Liquids: Mild [place] Thickened Liquids: Laryngeal Penetration: None Aspiration Present: No Penetration Aspiration Scale-[place]: 1-Material does not enter airway Noemí Scale-Vallecular Residue-[place] Thickened Liquids: Mild Noemí Scale-Pyriform Sinus Residue-[place] Thickened Liquids: Mild Purees: Laryngeal Penetration: None Aspiration Present: No Successful Modifications: Alternated liquids and solids Penetration Aspiration Scale-Puree: 1-Material does not enter airway Noemí Scale-Vallecular Residue-Puree: Moderate Noemí Scale-Pyriform Sinus Residue-Puree: Mild Solids: Laryngeal Penetration: None Aspiration Present: No Successful Modifications: Alternated liquids and solids Penetration Aspiration Scale-Solids: 1-Material does not enter airway Paterson Scale-Vallecular Residue-Solids: Moderate Noemí Scale-Pyriform Sinus Residue-Solids: Mild Dysphagia Outcome and Severity Scale: Dysphagia Outcomes and Severity Scale: 3 Moderate dysphagia Levels 1 & 2 on the PATRICK indicate need for nonoral nutrition. Treatment Treatment was not provided this date. Please reference care plan for treatment goals and details, if indicated. Plan IMPORT EXPORT MANAGER Frequency of Services during current admission: 2-3x/wk IMPORT EXPORT MANAGER Recommendation (Add'l Services): Senior Living Facility Next Visit Plan:treatment/therapy Additional Referrals: PT/OT Discharge Summary Statement If this is the last swallow therapy visit, this serves as the discharge summary. us Marilyn Morgan MD IMPORT EXPORT MANAGER ORDERABLES Final Result [facility] * (ABNORMAL) CBC without differential (03/01/2025 5:45 AM CDT) WBC 10.25(H) 3.80 - 9.90 K/cumm Hgb 8.7(L) 13.0 - 17.5 g/dL [facility] Hct 28.1(L) 38.9 - 50.3 % [facility] Plt 226 150 - 400 K/cumm [facility] MPV 10.6 9.1 - 12.3 fL [facility] RBC 3.12(L) 4.30 - 5.80 M/cumm [facility] MCV 90.1 81.3 - 96.4 fL [facility] MCH 27.9 27.1 - 33.3 pg [facility] MCHC 31.0(L) 32.3 - 35.7 g/dL [facility] RDW CV 15.4(H) 11.1 - 14.9 % [facility] RDW SD 50.7(H) 35.7 - 48.1 fL [facility] NRBC abs 0.00 0.00 - 0.01 K/cumm [facility] Blood 03/01/2025 5:45 AM CDT 03/01/2025 6:01 AM CDT us Lucy Ho EPOXY SPECIALIST LAB BLOOD ORDERABLES [facility] al Result [facility] Department [place] [address] * CT Head WO Contrast (03/01/2025 5:22 [...] by: Goldie Edwards M.D. Lucy Ho NP IM CT PROCEDURES Final Result * (ABNORMAL) Urinalysis reflex to microscopic and culture Urine, indwelling catheter (03/01/2025 3:09AM CDT) Color, ur Straw Yellow Clarity, ur Clear Clear [facility] Specific gravity, ur >1.042(H) 1.003 - 1.030 [facility] pH, urine 6.0 [facility] Comment: Interpretive Data U rine pH is affected by diet, medications, systemic acid-base disturbances, and renal tubular function. pH may affect urinary stone formation. For example, urine pH below 6.0 may help reduce the tendency for calcium phosphate stones and pH greater than 6.0 may reduce the tendency for uric acid stone formation. Source: [facility] [employer] Current Interpretive Data was last revised on 2017 Protein, ur ql Trace Negative [facility] Glucose, ur ql Negative Negative [facility] Ketones, ur Negative Negative [facility] Bilirubin, ur Negative Negative [facility] Blood, ur Negative Negative [facility] Urobilinogen, ur <2.0 <2.0 mg/dL [facility] Nitrite, ur Negative Negative [facility] Leukocyte esterase, ur Negative Negative [facility] UA reflex comment Reflex conditions for microscopic UA and culture not met. [facility] Urine, indwelling catheter 03/01/2025 3:09 AM CDT 03/01/2025 3:35 AM CDT us Lucy Ho EPOXY SPECIALIST LAB MICROBIOLOGY - GENER AL ORDERABLES Final Result [facility] Department [place] [address] * Respiratory pathogen panel Nasopharyngeal (03/01/2025 3:09 AM CDT) Pathologist [facility] Influenza A RNA Not Detected Not Detected Influenza B RNA Not Detected Not Detected [facility] RSV RNA Not Detected Not Detected [facility] COVID-19 RNA Not Detected Not Detected [facility] Coronavirus 229E RNA Not Detected Not Detected [facility] Coronavirus HKU1 RNA Not Detected Not Detected [facility] Coronavirus NL63 RNA Not Detected Not Detected [facility] Coronavirus OC43 RNA Not Detected Not Detected [facility] Adenovirus DNA Not Detected Not Detected [facility] Metapneumovirus RNA Not Detected Not Detected [facility] Rhinovirus/Enterov irus RNA Not Detected Not Detected [facility] Parainfluenza 1 RNA Not Detected Not Detected [facility] Parainfluenza 2 RNA Not Detected Not Detected [facility] Parainfluenza 3 RNA Not Detected Not Detected [facility] Parainfluenza 4 RNA Not Detected Not Detected [facility] B. pertussis DNA Not Detected Not Detected [facility] B. parapertussis DNA Not Detected Not Detected [facility] C. pneumoniae DNA Not Detected Not Detected [facility] M. pneumoniae DNA Not Detected Not Detected [facility] Nasopharyngeal 03/01/2025 3: 09 AM CDT 03/01/2025 3:44 AM CDT Narrative [facility] - 03/01/2025 4:42 AM CDT Is the Patient experiencing symptoms consistent with COVID?->No Surveillance testing for transplant patient?->No Interpretive Data The Right On Interactive FilmArray Respiratory Panel (RP2.1) assay is a [...] assay has FDA clearance for testing of EPOXY SPECIALIST swabs. The performance of additional specimen types has been assessed by the performing laboratory. The performance characteristics of this assay have been determined by [facility] Molecular Infectious Disease Laboratory. Current interpretive data was last revised on 22. Lucy Ho EPOXY SPECIALIST LAB MICROBIOLOGY - [facility] ORDERABLES Final Result [facility] [place] [address] * Blood culture Blood (03/01/2025 3:09 AM [...] performance characteristics have been verified by the [facility]. For questions about this culture, contact the Microbiology Laboratory at [phone]. Interpretive data was last revised on 24. Lucy Ho EPOXY SPECIALIST LAB MICROBIOLOGY - GENER AL ORDERABLES Final Result [facility] Department [place] [address] * Blood culture Blood (03/01/2025 3:09 AM [...] performance characteristics have been verified by the [facility]. For questions about this culture, contact the Microbiology Laboratory at [phone]. Interpretive data was last revised on 24. Lucy Ho NP LAB MICROBIOLOGY - GENER AL ORDERABLES Final Result [facility] [place] [address] * Antibody identification (02/28/2025 8:47 PM CDT) [facility] Antibody ID 1 Anti Little e Blood 02/28/2025 8:47 PM CDT 02/28/2025 8:47 PM CDT Lucy Ho NP LAB BLOOD BANK TEST ORDE RABLES Final Result Performing Organization Address City/[facility]/ZIP Co de Phone Number [facility] Department [place] [address] * ECG 12 lead (02/28/2025 8:02 PM CDT) Ventricular Rate EKG/Min 63 BPM [facility] Atrial Rate 63 BPM [facility] ME-Interval (MSEC) 218 ms [facility] QRS-Interval (MSEC) 92 ms [facility] QT-Interval (MSEC) 398 ms [facility] QTc 407 ms [facility] P [place] 49 degrees [facility] R [place] -25 degrees [facility] T [place] 10 degrees [facility] Diagnosis Sinus rhythm with 1st degree A-V block Minimal voltage criteria for LVH, may be normal variant Borderline ECG When compared with ECG of 08-APR-2023 12:02, Previous ECG has undetermined rhythm, needs review QRS duration has increased ST no longer depressed in Inferior leads T wave inversion no longer evident in Inferior leads Confirmed by MIRA SAENZ M.D ([id number]) on 03/01/2025 5:26:48 PM [facility] 02/28/2025 8:02 PM CDT 03/01/2025 5:26 PM CDT us Lucy Ho EPOXY SPECIALIST ECG ORDERABLES Final Re sult [facility] * XR chest 1 view [...] it. Electronically signed by: Christiano Stephenson M.D. us Lucy Ho NP IMG XR PROCEDURES Final Result * Troponin I high-sensitivity series (baseline, 2hr, 4hr, 6hr) (02/28/2025 7:42 PM CDT) Trop I hs 18 <=35 ng/L Comment: Interpretive Data For further hscTnI resources including the diagnostic algorithm and an aid in interpretation, copy and paste this link: [email or web address].[email or web address]/[email or web address] Current Interpretive Data last revised 2020. Blood 02/28/2025 7:42 PM CDT 02/28/2025 7:57 PM CDT us Lucy Ho NP LAB BLOOD ORDERABLES Fin al Result [facility] Department [place] [address] * eGFR (02/28/2025 7:42 PM CDT) eGFR 90 >=60 mL/min/1. 73 m2 Comment: [...] ORDERABLES Fin al Result Performing Organization Address [facility] [[email or web address]] de Phone Number [facility] [place] [address] * aPTT (02/28/2025 7:42 PM CDT) aPTT [...] ORDERABLES Fin al Result Performing Organization Address [email or web address]] de Phone Number [facility] [place] [address] * Protime-INR (02/28/2025 7:42 PM CDT) PT 13.3 10.2 - 13.5 sec INR 1.18 0.90 - 1.20 [facility] Comment: Interpretive data Oral anticoagulant therapeutic ranges: Venous thromboembolism prophylaxis or treatment: 2.0-3.0 CARDIOLOGY Standard range: 2.0-3.0 High-intensity range: 2.5-3.5 Refer to indication-specific guidelines for appropriate target ranges for prosthetic heart valve replacement. Current interpretive data was last revised on 2019. Blood 02/28/2025 7:42 PM CDT 02/28/2025 7:57 PM CDT Lucy Ho EPOXY SPECIALIST LAB BLOOD ORDERABLES Fin al Result Performing Organization Address City/[facility]/ZIP Co de Phone Number [facility] [place] [address] * (ABNORMAL) CBC without differential (02/28/2025 7:42 PM CDT) Pathologist [facility] WBC 8.91 3.80 - 9.90 K/cumm Hgb 9.2(L) 13.0 - 17.5 g/dL [facility] Hct 29.5(L) 38.9 - 50.3 % [facility] Plt 223 150 - 400 K/cumm [facility] MPV 10.5 9.1 - 12.3 fL [facility] RBC 3.26(L) 4.30 - 5.80 M/cumm [facility] MCV 90.5 81.3 - 96.4 fL [facility] MCH 28.2 27.1 - 33.3 pg [facility] MCHC 31.2(L) 32.3 - 35.7 g/dL [facility] RDW CV 15.5(H) 11.1 - 14.9 % [facility] RDW SD 51.8(H) 35.7 - 48.1 fL [facility] NRBC abs 0.00 0.00 - 0.01 K/cumm [facility] Blood 02/28/2025 7:42 PM CDT 02/28/2025 7:57 PM CDT Lucy Ho NP LAB BLOOD ORDERABLES Fin al Result Performing Organization Address [facility]/ZIP Co de Phone Number [facility] [place] [address] * (ABNORMAL) Type and screen (02/28/2025 7:42 PM CDT) Pathologist [facility] ABO Rh O Positive Bonifacio, indirect Positive(A) [facility] Blood 02/28/2025 7:42 PM CDT 02/28/2025 7:54 PM CDT Narrative [facility] - 02/28/2025 8:47 PM CDT Has the patient had Daratumumab or Isatuximab in the past 6 months?->Unknown Lucy Ho NP LAB BLOOD BANK TEST ORDE KRISTYLES Final Result Performing Organization Address City/[facility]/[place] [address] * Phosphorus (02/28/2025 7:42 PM CDT) [facility] Phosphorus, pl 3.9 2.3 - 4.5 mg/dL Blood 02/28/2025 7:42 PM CDT 02/28/2025 7:56 PM CDT Lucy Ho NP LAB BLOOD ORDERABLES Fin al Result Performing Organization Address [facility] Co de Phone Number [facility] [place] [address] * Magnesium (02/28/2025 7:42 PM CDT) [facility] Magnesium 2.3 1.4 - 2.5 mg/dL Blood 02/28/2025 7:42 PM CDT 02/28/2025 7:56 PM CDT Lucy Ho NP LAB BLOOD ORDERABLES Fin al Result Performing Organization Address City/[facility]/ZIP Co de Phone Number [facility] [place] [address] * Hemoglobin A1c (02/28/2025 7:42 PM CDT) Hgb A1C 5.4 4.0 - 5.6 % Estimated Average Glucose 108 mg/dL [facility] Comment: The ADA recommends reporting an estimated [...] ORDERABLES Fin al Result Performing Organization Address [facility] [[email or web address]] de Phone Number [facility] [place] [address] * (ABNORMAL) Blood gas, arterial (02/28/2025 7:42 PM CDT) Pathologist [facility] pH, Art 7.38 7.35 - 7.45 PCO2, Arterial 53(H) 35 - 45 mmHg [facility] PO2, Arterial 78(L) 83 - 108 mmHg [facility] HCO3 Art (Calculated) 31(H) 20 - 30 mmol/L [facility] BE, art 5 mmol/L [facility] Comment: Interpretive Data No Reference Range Established Current Interpretive Data was last revised on 2017 O2 Sat Art (Measured) 96(H) 90 - 95 % [facility] Blood 02/28/2025 7:42 PM CDT 02/28/2025 7:49 PM CDT Lucy Ho NP LAB BLOOD ORDERABLES Fin al Result Performing Organization Address [facility] [[email or web address]] de Phone Number [facility] [place] [address] * (ABNORMAL) Lipid panel (02/28/2025 7:42 PM [...] revised on 2018. Triglycerides 45 <=149 mg/dL [facility] Comment: Interpretive Data Ages < or [...] revised on 2018. HDL 27(L) >=40 mg/dL [facility] Comment: Interpretive Data Ages < or [...] on 2018. LDL, calculated 28 <=129 mg/dL [facility] Comment: Interpretive Data Ages < or [...] revised on 2024. Non-HDL Cholesterol 41 mg/dL [facility] Comment: Interpretive Data Ages < or [...] last revised on 2018. Chol/HDL ratio 3 [facility] Blood 02/28/2025 7:42 PM CDT 02/28/2025 7:56 PM CDT us Jaquelin Monroy MD LAB BLOOD ORDERABLES Fin al Result [facility] One [facility] [place] [address] * (ABNORMAL) Comprehensive metabolic panel (02/28/2025 7:42 PM CDT) Sodium 144 135 - 145 mmol/L Potassium, pl 3.9 3.3 - 4.9 mmol/L [facility] Chloride 106 97 - 110 mmol/L [facility] CO2 33(H) 22 - 32 mmol/L [facility] Anion gap 5 2 - 15 mmol/L [facility] BUN 18 6 - 25 mg/dL [facility] Creatinine 0.88 0.80 - 1.30 mg/dL [facility] Glucose 117 70 - 199 mg/dL [facility] Comment: Interpretive Data Fasting glucose [...] 2022. Calcium 8.3(L) 8.5 - 10.3 mg/dL [facility] Bilirubin, total 0.3 0.1 - 1.2 mg/dL [facility] Protein, pl 5.9(L) 6.5 - 8.5 g/dL [facility] Albumin 2.8(L) 3.5 - 5.0 g/dL [facility] Alk phos 89 40 - 130 Units/L [facility] ALT 18 7 - 55 Units/L [facility] AST 28 10 - 50 Units/L [facility] Blood 02/28/2025 7:42 PM CDT 02/28/2025 7:56 PM CDT us Lucy Ho EPOXY SPECIALIST LAB BLOOD ORDERABLES Fin al Result [facility] One [facility] Department [place] [address] * POCT glucose (02/28/2025 7:27 PM CDT) [facility] Glucose, POC 126 70 - 199 mg/dL Blood 02/28/2025 7:27 PM CDT 02/28/2025 7:27 PM CDT Liza Traylor MD LAB POCT ORDERABLES - DE VICE Final Result GIGI Bravo [facility] [place] [address] * CTA/CTP Rapid Stroke (C) (02/28/2025 7:13 [...] the CTA were generated on a dedicated workstation/dietary server. NanoOpto software (Extenda-Dent) was used for automated analyses of the CTA. CT perfusion of the brain was performed with intravenous contrast using a separate data acquisition. These data were transmitted to a separate workstation/dietary server for processing by NanoOpto software (Extenda-Dent) to produce automated calculations of the estimated [...] Artery: no occlusion or significant stenosis L HOUSEHOLD COORDINATOR: no occlusion or significant stenosis R HOUSEHOLD COORDINATOR: Mild to moderate narrowing. No occlusion. There [...] the CTA were generated on a dedicated workstation/dietary server. NanoOpto software (Extenda-Dent) was used for automated analyses of the CTA. CT perfusion of the brain was performed with intravenous contrast using a separate data acquisition. These data were transmitted to a separate workstation/dietary server for processing by RapidAppthority software (Extenda-Dent) to produce automated calculations of the estimated [...] Artery: no occlusion or significant stenosis L HOUSEHOLD COORDINATOR: no occlusion or significant stenosis R HOUSEHOLD COORDINATOR: Mild to moderate narrowing. No occlusion. There [...] it. Electronically signed by: Goldie Edwards M.D. us Jaquelin Monroy MD IMG CT PROCEDURES Final Result * eGFR (02/28/2025 6:50 PM CDT) eGFR >90 >=60 mL/min/1. 73 [...] MD LAB BLOOD ORDERABLES Fin al Result [facility] One [facility] [place] [address] * (ABNORMAL) Differential, auto (02/28/2025 6:50 PM CDT) [facility] Neutrophil abs 7.36(H) 1.50 - 6.50 K/cumm Imm gran abs 0.03 0.00 - 0.10 K/cumm [facility] Lymphocyte abs 0.76(L) 0.80 - 3.30 K/cumm [facility] Monocyte abs 0.87(H) 0.20 - 0.80 K/cumm [facility] Eosinophil abs 0.20 0.00 - 0.50 K/cumm [facility] Basophil abs 0.02 0.00 - 0.10 K/cumm [facility] Neutrophil pct 79.7 % [facility] Comment: Interpretive Data Percent cell count reference ranges are not reported, since discordance with absolute values may lead to misinterpretation of CBC data. Current Interpretive Data was last revised on 2017. Imm gran pct 0.3 % [facility] Comment: Interpretive Data Percent cell count reference ranges are not reported, since discordance with absolute values may lead to misinterpretation of CBC data. Current Interpretive Data was last revised on 2017. Lymphocyte pct 8.2 % [facility] Comment: Interpretive Data Percent cell count reference ranges are not reported, since discordance with absolute values may lead to misinterpretation of CBC data. Current Interpretive Data was last revised on 2017. Monocyte pct 9.4 % [facility] Comment: Interpretive Data Percent cell count reference ranges are not reported, since discordance with absolute values may lead to misinterpretation of CBC data. Current Interpretive Data was last revised on 2017. Eosinophil pct 2.2 % [facility] Comment: Interpretive Data Percent cell count reference ranges are not reported, since discordance with absolute values may lead to misinterpretation of CBC data. Current Interpretive Data was last revised on 2017. Basophil pct 0.2 % [facility] Comment: Interpretive Data Percent cell count reference ranges are not reported, since discordance with absolute values may lead to misinterpretation of CBC data. Current Interpretive Data was last revised on 2017. Blood 02/28/2025 6:50 PM CDT 02/28/2025 7:03 PM CDT us Jaquelin Monroy MD LAB BLOOD ORDERABLES Fin al Result [facility] One [facility] Department [place] [address] * (ABNORMAL) CBC with auto differential (02/28/2025 6:50 PM CDT) WBC 9.24 3.80 - 9.90 K/cumm Hgb 8.9(L) 13.0 - 17.5 g/dL [facility] Hct 28.9(L) 38.9 - 50.3 % [facility] Plt 221 150 - 400 K/cumm [facility] MPV 10.6 9.1 - 12.3 fL [facility] RBC 3.20(L) 4.30 - 5.80 M/cumm [facility] MCV 90.3 81.3 - 96.4 fL [facility] MCH 27.8 27.1 - 33.3 pg [facility] MCHC 30.8(L) 32.3 - 35.7 g/dL [facility] RDW CV 15.4(H) 11.1 - 14.9 % [facility] RDW SD 50.8(H) 35.7 - 48.1 fL [facility] NRBC abs 0.00 0.00 - 0.01 K/cumm [facility] Blood 02/28/2025 6:50 PM CDT 02/28/2025 7:03 PM CDT Jaquelin Monroy MD LAB BLOOD ORDERABLES Fin al Result Performing Organization Address City/[facility]/ZIP Co de Phone Number [facility] [place] [address] * Lactate, whole blood (02/28/2025 6:50 PM CDT) Lactate, bld 0.9 0.7 - 2.0 mmol/L Blood 02/28/2025 6:50 PM CDT 02/28/2025 6:57 PM CDT Jaquelin Monroy MD LAB BLOOD ORDERABLES Fin al Result [facility] [place] [address] * Magnesium (02/28/2025 6:50 PM CDT) Magnesium 2.0 1.4 - 2.5 mg/dL Blood 02/28/2025 6:50 PM CDT 02/28/2025 7:03 PM CDT Jaquelin Monroy MD LAB BLOOD ORDERABLES Fin al Result Performing Organization Address [facility] Co de Phone Number [facility] [place] [address] * (ABNORMAL) Blood gas, venous (02/28/2025 6:50 PM CDT) pH, Venous 7.34 7.32 - 7.43 PCO2, Venous 59(H) 40 - 50 mmHg [facility] PO2, Venous 58 mmHg [facility] Comment: Interpretive Data No Reference Range Established Current Interpretive Data was last revised on 2017. HCO3 Venous, Calculated 31(H) 20 - 30 mmol/L [facility] BE, venous 4 mmol/L [facility] Comment: Interpretive Data No Reference Range Established Current Interpretive Data was last revised on 2017. Blood 02/28/2025 6:50 PM CDT 02/28/2025 6:57 PM CDT Jaquelin Monroy MD LAB BLOOD ORDERABLES Fin al Result Performing Organization Address [facility] Co de Phone Number [facility] Department [place] [address] * (ABNORMAL) Hepatic function panel (02/28/2025 6:50 PM CDT) Bilirubin, total 0.3 0.1 - 1.2 mg/dL Bilirubin, direct <0.2 0.1 - 0.3 mg/dL [facility] Protein, pl 5.9(L) 6.5 - 8.5 g/dL [facility] Albumin 3.0(L) 3.5 - 5.0 g/dL [facility] Alk phos 91 40 - 130 Units/L [facility] ALT 23 7 - 55 Units/L [facility] AST 27 10 - 50 Units/L [facility] Blood 02/28/2025 6:50 PM CDT 02/28/2025 7:03 PM CDT Jaquelin Monroy MD LAB BLOOD ORDERABLES Fin al Result [facility] [place] [address] * (ABNORMAL) Basic metabolic panel (02/28/2025 6:50 PM CDT) Pathologist [facility] Sodium 148(H) 135 - 145 mmol/L Potassium, pl 4.5 3.3 - 4.9 mmol/L [facility] Chloride 108 97 - 110 mmol/L [facility] CO2 33(H) 22 - 32 mmol/L [facility] Anion gap 7 2 - 15 mmol/L [facility] BUN 17 6 - 25 mg/dL [facility] Creatinine 0.85 0.80 - 1.30 mg/dL [facility] Glucose 136 70 - 199 mg/dL [facility] Comment: Interpretive Data Fasting glucose [...] 2022. Calcium 7.6(L) 8.5 - 10.3 mg/dL [facility] Blood 02/28/2025 6:50 PM CDT 02/28/2025 7:03 PM CDT Jaquelin Monroy MD LAB BLOOD ORDERABLES Fin al Result [facility] [place] [address] * (ABNORMAL) Arterial Blood gas w/Lactate POCT (02/28/2025 6:49 PM CDT) Lactate POC i-STAT 0.5(L) 0.7 - 2.0 mmol/L pH POC 7.34(L) 7.35 - 7.45 [facility] pCO2, Art POC 60(H) 35 - 45 mmHg [facility] PO2 POC 51(L) 80 - 105 mmHg [facility] CO2, total POC 35(H) 20 - 30 mmol/L [facility] HCO3, POC 33(H) 21 - 30 mmol/L [facility] BE POC 7(H) -2 - 3 mmol/L [facility] O2 sat POC 82(L) 95 - 98 % [facility] Blood 02/28/2025 6:49 PM CDT 02/28/2025 6:49 PM CDT Jaquelin Monroy MD LAB BLOOD ORDERABLES Fin al Result [facility] [place] [address] * POCT glucose (02/28/2025 6:30 PM CDT) [facility] Glucose, POC 140 70 - 199 mg/dL Blood 02/28/2025 6:30 PM CDT 02/28/2025 6:30 PM CDT Jaquelin Monroy MD LAB POCT ORDERABLES - DE VICE Final Result [facility] [place] [address] * XR Sacrum Coccyx 2 or More [...] it. Electronically signed by: Solomon Belle M.D. us Jaquelin Monroy MD IMG XR PROCEDURES Final [...] it. Electronically signed by: Solomon Belle M.D. us Jaquelin Monroy MD IMG XR PROCEDURES Final [...] MD LAB BLOOD ORDERABLES Final R esult [facility] One [facility] [place] [address] * (ABNORMAL) Differential, auto (02/27/2025 10:55 PM CDT) Neutrophil abs 7.32(H) 1.50 - 6.50 K/cumm Imm gran abs 0.05 0.00 - 0.10 K/cumm [facility] Lymphocyte abs 0.88 0.80 - 3.30 K/cumm [facility] Monocyte abs 0.93(H) 0.20 - 0.80 K/cumm [facility] Eosinophil abs 0.21 0.00 - 0.50 K/cumm [facility] Basophil abs 0.03 0.00 - 0.10 K/cumm [facility] Neutrophil pct 77.8 % [facility] Comment: Interpretive Data Percent cell count reference ranges are not reported, since discordance with absolute values may lead to misinterpretation of CBC data. Current Interpretive Data was last revised on 2017. Imm gran pct 0.5 % [facility] Comment: Interpretive Data Percent cell count reference ranges are not reported, since discordance with absolute values may lead to misinterpretation of CBC data. Current Interpretive Data was last revised on 2017. Lymphocyte pct 9.3 % [facility] Comment: Interpretive Data Percent cell count reference ranges are not reported, since discordance with absolute values may lead to misinterpretation of CBC data. Current Interpretive Data was last revised on 2017. Monocyte pct 9.9 % [facility] Comment: Interpretive Data Percent cell count reference ranges are not reported, since discordance with absolute values may lead to misinterpretation of CBC data. Current Interpretive Data was last revised on 2017. Eosinophil pct 2.2 % [facility] Comment: Interpretive Data Percent cell count [...] ORDERABLES Final R esult Performing Organization Address [facility] Co de Phone Number [facility] Department [place] [address] * (ABNORMAL) CBC with auto differential (02/27/2025 10:55 PM CDT) WBC 9.42 3.80 - 9.90 K/cumm Hgb 8.9(L) 13.0 - 17.5 g/dL [facility] Hct 28.3(L) 38.9 - 50.3 % [facility] Plt 224 150 - 400 K/cumm [facility] MPV 10.6 9.1 - 12.3 fL [facility] RBC 3.15(L) 4.30 - 5.80 M/cumm [facility] MCV 89.8 81.3 - 96.4 fL [facility] MCH 28.3 27.1 - 33.3 pg [facility] MCHC 31.4(L) 32.3 - 35.7 g/dL [facility] RDW CV 15.5(H) 11.1 - 14.9 % [facility] RDW SD 50.9(H) 35.7 - 48.1 fL [facility] NRBC abs 0.00 0.00 - 0.01 K/cumm [facility] Blood 02/27/2025 10:5 5 PM CDT 02/28/2025 12:37 AM CDT us Shayne Hussein MD LAB BLOOD ORDERABLES Final R esult Performing Organization Address City/[facility]/ZIP Co de Phone Number [facility] [place] [address] * (ABNORMAL) Basic metabolic panel (02/27/2025 10:55 PM CDT) Pathologist [facility] Sodium 141 135 - 145 mmol/L Potassium, pl 3.6 3.3 - 4.9 mmol/L [facility] Chloride 105 97 - 110 mmol/L [facility] CO2 30 22 - 32 mmol/L [facility] Anion gap 6 2 - 15 mmol/L [facility] BUN 18 6 - 25 mg/dL [facility] Creatinine 0.90 0.80 - 1.30 mg/dL [facility] Glucose 105 70 - 199 mg/dL [facility] Comment: Interpretive Data Fasting glucose [...] 2022. Calcium 7.8(L) 8.5 - 10.3 mg/dL [facility] Blood 02/27/2025 10:5 5 PM CDT 02/28/2025 12:32 AM CDT us Shayne Hussein MD LAB BLOOD ORDERABLES Final R esult [facility] Department [place] [address] * POCT glucose (02/27/2025 11:31 AM CDT) [facility] Glucose, POC 138 70 - 199 mg/dL Blood 02/27/2025 11:3 1 AM CDT 02/27/2025 11:31 AM CDT us Jaquelin Monroy MD LAB POCT ORDERABLES - DE VICE Final Result Performing Organization Address City/[facility]/ZIP Co de Phone Number [facility] [place] [address] * eGFR (02/26/2025 11:33 PM CDT) Pathologist [facility] eGFR >90 >=60 mL/min/1. 73 m2 Comment: [...] MD LAB BLOOD ORDERABLES Final R esult [facility] One [facility] [place] [address] * (ABNORMAL) Differential, auto (02/26/2025 11:33 PM CDT) Pathologist [facility] Neutrophil abs 5.82 1.50 - 6.50 K/cumm Imm gran abs 0.04 0.00 - 0.10 K/cumm [facility] Lymphocyte abs 0.74(L) 0.80 - 3.30 K/cumm [facility] Monocyte abs 0.82(H) 0.20 - 0.80 K/cumm [facility] Eosinophil abs 0.25 0.00 - 0.50 K/cumm [facility] Basophil abs 0.02 0.00 - 0.10 K/cumm [facility] Neutrophil pct 75.6 % [facility] Comment: Interpretive Data Percent cell count reference ranges are not reported, since discordance with absolute values may lead to misinterpretation of CBC data. Current Interpretive Data was last revised on 2017. Imm gran pct 0.5 % [facility] Comment: Interpretive Data Percent cell count reference ranges are not reported, since discordance with absolute values may lead to misinterpretation of CBC data. Current Interpretive Data was last revised on 2017. Lymphocyte pct 9.6 % [facility] Comment: Interpretive Data Percent cell count reference ranges are not reported, since discordance with absolute values may lead to misinterpretation of CBC data. Current Interpretive Data was last revised on 2017. Monocyte pct 10.7 % [facility] Comment: Interpretive Data Percent cell count reference ranges are not reported, since discordance with absolute values may lead to misinterpretation of CBC data. Current Interpretive Data was last revised on 2017. Eosinophil pct 3.3 % [facility] Comment: Interpretive Data Percent cell count reference ranges are not reported, since discordance with absolute values may lead to misinterpretation of CBC data. Current Interpretive Data was last revised on 2017. Basophil pct 0.3 % [facility] Comment: Interpretive Data Percent cell count reference ranges are not reported, since discordance with absolute values may lead to misinterpretation of CBC data. Current Interpretive Data was last revised on 2017. Blood 02/26/2025 11:3 3 PM CDT 02/27/2025 12:06 AM CDT us Shayne Hussein MD LAB BLOOD ORDERABLES Final R esult [facility] One [facility] [place] [address] * (ABNORMAL) CBC with auto differential (02/26/2025 11:33 PM CDT) WBC 7.69 3.80 - 9.90 K/cumm Hgb 8.9(L) 13.0 - 17.5 g/dL [facility] Hct 28.8(L) 38.9 - 50.3 % [facility] Plt 174 150 - 400 K/cumm [facility] MPV 10.7 9.1 - 12.3 fL [facility] RBC 3.16(L) 4.30 - 5.80 M/cumm [facility] MCV 91.1 81.3 - 96.4 fL [facility] MCH 28.2 27.1 - 33.3 pg [facility] MCHC 30.9(L) 32.3 - 35.7 g/dL [facility] RDW CV 15.2(H) 11.1 - 14.9 % [facility] RDW SD 51.2(H) 35.7 - 48.1 fL [facility] NRBC abs 0.00 0.00 - 0.01 K/cumm [facility] Blood 02/26/2025 11:3 3 PM CDT 02/27/2025 12:06 AM CDT us Shayne Hussein MD LAB BLOOD ORDERABLES Final R esult [facility] One [facility] [place] [address] * (ABNORMAL) Basic metabolic panel (02/26/2025 11:33 PM CDT) Sodium 142 135 - 145 mmol/L Potassium, pl 3.8 3.3 - 4.9 mmol/L [facility] Chloride 106 97 - 110 mmol/L [facility] CO2 31 22 - 32 mmol/L [facility] Anion gap 5 2 - 15 mmol/L [facility] BUN 17 6 - 25 mg/dL [facility] Creatinine 0.85 0.80 - 1.30 mg/dL [facility] Glucose 111 70 - 199 mg/dL [facility] Comment: Interpretive Data Fasting glucose [...] 2022. Calcium 8.0(L) 8.5 - 10.3 mg/dL [facility] Blood 02/26/2025 11:3 3 PM CDT 02/27/2025 12:05 AM CDT Shayne Hussein MD LAB BLOOD ORDERABLES Final R esult Performing Organization Address [facility] Co de Phone Number [facility] [place] [address] * Potassium, urine, random (02/26/2025 4:41 PM CDT) Potassium conc, ur 19.1 mmol/L Comment: Interpretive Data No reference range established. Current interpretive data was last revised 2018. Urine 02/26/2025 4:41 PM CDT 02/26/2025 4:57 PM CDT Ros Olivares NP LAB URINE ORDERABLES Final Result Performing Organization Address [facility] [[email or web address]] de Phone Number [facility] [place] [address] * Creatinine, urine, random (02/26/2025 4:41 PM CDT) Creatinine Ur 136.2 mg/dL Comment: Interpretive Data No reference range established. Current interpretive data was last revised 2018. Urine 02/26/2025 4:41 PM CDT 02/26/2025 4:57 PM CDT Ros Olivares NP LAB URINE ORDERABLES Final Result Performing Organization Address [facility] Co de Phone Number [facility] [place] [address] * Chloride, urine, random (02/26/2025 4:41 PM CDT) Chloride, ur 91 mmol/L Comment: Interpretive Data No reference range established. Current interpretive data was last revised 2018. Urine 02/26/2025 4:41 PM CDT 02/26/2025 4:57 PM CDT Ros Olivares NP LAB URINE ORDERABLES Final Result Performing Organization Address City/[facility] Co de Phone Number [facility] [place] [place] [address] * eGFR (02/26/2025 6:13 AM CDT) eGFR [...] Olivares NP LAB BLOOD ORDERABLES Final Result [facility] [place] [address] * (ABNORMAL) Differential, auto (02/26/2025 6:13 AM CDT) Neutrophil abs 5.34 1.50 - 6.50 K/cumm Imm gran abs 0.03 0.00 - 0.10 K/cumm [facility] Lymphocyte abs 0.63(L) 0.80 - 3.30 K/cumm [facility] Monocyte abs 0.93(H) 0.20 - 0.80 K/cumm [facility] Eosinophil abs 0.19 0.00 - 0.50 K/cumm [facility] Basophil abs 0.01 0.00 - 0.10 K/cumm [facility] Neutrophil pct 75.0 % [facility] Comment: Interpretive Data Percent cell count reference ranges are not reported, since discordance with absolute values may lead to misinterpretation of CBC data. Current Interpretive Data was last revised on 2017. Imm gran pct 0.4 % [facility] Comment: Interpretive Data Percent cell count reference ranges are not reported, since discordance with absolute values may lead to misinterpretation of CBC data. Current Interpretive Data was last revised on 2017. Lymphocyte pct 8.8 % [facility] Comment: Interpretive Data Percent cell count reference ranges are not reported, since discordance with absolute values may lead to misinterpretation of CBC data. Current Interpretive Data was last revised on 2017. Monocyte pct 13.0 % [facility] Comment: Interpretive Data Percent cell count reference ranges are not reported, since discordance with absolute values may lead to misinterpretation of CBC data. Current Interpretive Data was last revised on 2017. Eosinophil pct 2.7 % [facility] Comment: Interpretive Data Percent cell count reference ranges are not reported, since discordance with absolute values may lead to misinterpretation of CBC data. Current Interpretive Data was last revised on 2017. Basophil pct 0.1 % [facility] Comment: Interpretive Data Percent cell count reference ranges are not reported, since discordance with absolute values may lead to misinterpretation of CBC data. Current Interpretive Data was last revised on 2017. Blood 02/26/2025 6:13 AM CDT 02/26/2025 6:26 AM CDT us Shayne Hussein MD LAB BLOOD ORDERABLES Final R esult Performing Organization Address [facility] Co de Phone Number [facility] [place] [place] [address] * (ABNORMAL) CBC with auto differential (02/26/2025 6:13 AM CDT) Pathologist [facility] WBC 7.13 3.80 - 9.90 K/cumm Hgb 8.4(L) 13.0 - 17.5 g/dL [facility] Hct 26.6(L) 38.9 - 50.3 % [facility] Plt 182 150 - 400 K/cumm [facility] MPV 10.4 9.1 - 12.3 fL [facility] RBC 2.99(L) 4.30 - 5.80 M/cumm [facility] MCV 89.0 81.3 - 96.4 fL [facility] MCH 28.1 27.1 - 33.3 pg [facility] MCHC 31.6(L) 32.3 - 35.7 g/dL [facility] RDW CV 15.5(H) 11.1 - 14.9 % [facility] RDW SD 50.5(H) 35.7 - 48.1 fL [facility] NRBC abs 0.00 0.00 - 0.01 K/cumm [facility] Blood 02/26/2025 6:13 AM CDT 02/26/2025 6:26 AM CDT us Shayne Hussein MD LAB BLOOD ORDERABLES Final R esult Performing Organization Address City/[facility] Co de Phone Number [facility] [place] [place] [address] * Magnesium (02/26/2025 6:13 AM CDT) Pathologist [facility] Magnesium 2.2 1.4 - 2.5 mg/dL Blood 02/26/2025 6:13 AM CDT 02/26/2025 6:26 AM CDT us Shayne Hussein MD LAB BLOOD ORDERABLES Final R esult [facility] [place] [address] * (ABNORMAL) Basic metabolic panel (02/26/2025 6:13 AM CDT) [facility] Sodium 143 135 - 145 mmol/L Potassium, pl 3.3 3.3 - 4.9 mmol/L [facility] Chloride 104 97 - 110 mmol/L [facility] CO2 28 22 - 32 mmol/L [facility] Anion gap 11 2 - 15 mmol/L [facility] BUN 15 6 - 25 mg/dL [facility] Creatinine 0.83 0.80 - 1.30 mg/dL [facility] Glucose 102 70 - 199 mg/dL [facility] Comment: Interpretive Data Fasting glucose [...] 2022. Calcium 7.9(L) 8.5 - 10.3 mg/dL [facility] Blood 02/26/2025 6:13 AM CDT 02/26/2025 6:26 AM CDT us Ros Olivares NP LAB BLOOD ORDERABLES Final Result Performing Organization Address City/[facility]/ZIP Co de Phone Number [facility] [place] [address] * eGFR (02/25/2025 10:30 PM CDT) eGFR [...] ORDERABLES Final R esult Performing Organization Address City/[facility]/ZIP Co de Phone Number [place] [address] * Magnesium (02/25/2025 10:30 PM CDT) Magnesium 2.1 1.4 - 2.5 mg/dL Blood 02/25/2025 10:3 0 PM CDT 02/25/2025 10:39 PM CDT us Shayne Hussein MD LAB BLOOD ORDERABLES Final R esult [facility] [place] [address] * (ABNORMAL) Basic metabolic panel (02/25/2025 10:30 PM CDT) Pathologist [facility] Sodium 139 135 - 145 mmol/L Potassium, pl 3.7 3.3 - 4.9 mmol/L [facility] Chloride 101 97 - 110 mmol/L [facility] CO2 31 22 - 32 mmol/L [facility] Anion gap 7 2 - 15 mmol/L [facility] BUN 16 6 - 25 mg/dL [facility] Creatinine 0.78(L) 0.80 - 1.30 mg/dL [facility] Glucose 110 70 - 199 mg/dL [facility] Comment: Interpretive Data Fasting glucose [...] 2022. Calcium 8.3(L) 8.5 - 10.3 mg/dL [facility] Blood 02/25/2025 10:3 0 PM CDT 02/25/2025 10:39 PM CDT us Shayne Hussein MD LAB BLOOD ORDERABLES Final R esult [facility] [place] [address] * (ABNORMAL) Potassium, whole blood (02/25/2025 2:44 PM CDT) Pathologist [facility] Potassium, bld 3.2(L) 3.3 - 4.9 mmol/L Comment:Verified Blood 02/25/2025 2:44 PM CDT 02/25/2025 2:52 PM CDT Result [facility] Savannah Valenzuela MD PhD LAB BLOOD ORDERABLES Final Resu lt Performing Organization Address [facility] Co de Phone Number [facility] [place] [address] * (ABNORMAL) Troponin I high-sensitivity 4-hour (02/25/2025 2:14 PM CDT) Trop I hs 55(H) <=35 ng/L Comment: Interpretive Data For further hscTnI resources including the diagnostic algorithm and an aid in interpretation, copy and paste this link: [email or web address].testcatalog.org/show/[email or web address] Current Interpretive Data last revised 2020. Trop I hs delta -13 ng/L [facility] Trop I hs interp Equivocal [facility] Blood 02/25/2025 2:14 PM CDT 02/25/2025 3:45 PM CDT Result [facility] Savannah Valenzuela MD PhD LAB BLOOD ORDERABLES Final Resu lt Performing Organization Address [facility] Co de Phone Number [facility] [place] [address] * Bladder Catheterization (02/25/2025 12:13 PM CDT) [...] no immediate complications Comments: Suprapubic tube exchange Ezekiel Roberts MD IN CLINIC/BEDSIDE ORDERABLES Fin al Result * POCT Rapid HIV Antibody Community Screening-[place] Eligible (02/25/2025 11:20 AM CDT) Rapid HIV, POC Negative Negative Lot Number [id number] QC Control Line Acceptable Blood 02/25/2025 11:2 0 AM CDT Ezekiel Roberts MD POINT OF CARE TEST ORDERABLES Fi nal Result * (ABNORMAL) Urinalysis reflex to microscopic and culture Urine, suprapubic catheter (02/25/2025 11:19 AM CDT) Pathologist [facility] Color, ur Straw Yellow Clarity, ur Clear Clear [facility] Specific gravity, ur 1.016 1.003 - 1.030 [facility] pH, urine 6.0 [facility] Comment: Interpretive Data U rine pH is affected by diet, medications, systemic acid-base disturbances, and renal tubular function. pH may affect urinary stone formation. For example, urine pH below 6.0 may help reduce the tendency for calcium phosphate stones and pH greater than 6.0 may reduce the tendency for uric acid stone formation. Source: [facility] Current Interpretive Data was last revised on 2017 Protein, ur ql 1+(A) Negative [facility] Glucose, ur ql Negative Negative [facility] Ketones, ur 2+(A) Negative [facility] Bilirubin, ur Negative Negative [facility] Blood, ur Trace(A) Negative [facility] Urobilinogen, ur <2.0 <2.0 mg/dL [facility] Nitrite, ur Negative Negative [facility] Leukocyte esterase, ur Negative Negative [facility] UA reflex comment Reflex to microscopic UA will be performed. [facility] Urine, suprapubic catheter 02/25/2025 11:19 AM CDT 02/25/2025 11:39 AM CDT Savannah Valenzuela MD PhD LAB MICROBIOLOGY - GENERAL ANTONIO WALKER Final Result [facility] [place] [address] * (ABNORMAL) Urinalysis, microscopic only (02/25/2025 11:19 AM CDT) WBC, ur 11-20(A) 0 - 5 /HPF RBC, ur 3-5(A) 0 - 2 /HPF [facility] Epithelial cells, squamous, ur 1-5 0 - 5 /HPF [facility] Mucous, ur Present(A) [facility] Culture Reflex Comment Reflex to urine culture will be performed. [facility] Urine, suprapubic catheter 02/25/2025 11:19 AM CDT 02/25/2025 11:39 AM CDT Savannah Valenzuela MD PhD LAB URINE ORDERABLES Final Resu lt Performing Organization Address City/[facility]/ZIP Co de Phone Number [facility] [place] [address] * Urine culture Urine, suprapubic catheter (02/25/2025 11:19 AM CDT) Pathologist [facility] Report Final Report: Less than 100,000 colonies/mL (clinically insignificant growth based on current clinical standards) Organism (CLINICALLY INSIGNIFICANT GROWTH [facility] Urine, suprapubic catheter 02/25/2025 11:19 AM CDT 02/25/2025 3:07 PM CDT Narrative [facility] - 02/26/2025 6:15 PM CDT Urine culture reflexed based upon urinalysis results. Testing performed by [facility] ([phone]) Savannah Valenzuela MD PhD LAB MICROBIOLOGY - GENERAL [facility] Final Result Performing Organization Address [facility]/ZIP Co de Phone Number [facility] [place] [address] * (ABNORMAL) Troponin I high-sensitivity series (baseline, [...] ORDERABLES Final Resu lt Performing Organization Address City/[facility]/ZIP Co de Phone Number [facility] [place] [address] * Sepsis Lactate w/ Reflex (02/25/2025 10:01 AM CDT) Sepsis Lactate 0.8 0.7 - 2.0 mmol/L Blood 02/25/2025 10:0 1 AM CDT 02/25/2025 10:25 AM CDT Savannah Valenzuela MD PhD LAB BLOOD ORDERABLES Final Resu lt Performing Organization Address City/[facility]/ZIP Co de Phone Number [facility] [place] [address] * eGFR (02/25/2025 10:01 AM CDT) eGFR 90 >=60 mL/min/1. 73 m2 Comment: [...] PhD LAB BLOOD ORDERABLES Final Resu lt [facility] [place] [address] * (ABNORMAL) Differential, auto (02/25/2025 10:01 AM CDT) Neutrophil abs 9.62(H) 1.50 - 6.50 K/cumm Imm gran abs 0.07 0.00 - 0.10 K/cumm [facility] Lymphocyte abs 0.47(L) 0.80 - 3.30 K/cumm [facility] Monocyte abs 1.19(H) 0.20 - 0.80 K/cumm [facility] Eosinophil abs 0.02 0.00 - 0.50 K/cumm [facility] Basophil abs 0.02 0.00 - 0.10 K/cumm [facility] Neutrophil pct 84.5 % [facility] Comment: Interpretive Data Percent cell count reference ranges are not reported, since discordance with absolute values may lead to misinterpretation of CBC data. Current Interpretive Data was last revised on 2017. Imm gran pct 0.6 % [facility] Comment: Interpretive Data Percent cell count reference ranges are not reported, since discordance with absolute values may lead to misinterpretation of CBC data. Current Interpretive Data was last revised on 2017. Lymphocyte pct 4.1 % [facility] Comment: Interpretive Data Percent cell count reference ranges are not reported, since discordance with absolute values may lead to misinterpretation of CBC data. Current Interpretive Data was last revised on 2017. Monocyte pct 10.4 % [facility] Comment: Interpretive Data Percent cell count reference ranges are not reported, since discordance with absolute values may lead to misinterpretation of CBC data. Current Interpretive Data was last revised on 2017. Eosinophil pct 0.2 % [facility] Comment: Interpretive Data Percent cell count reference ranges are not reported, since discordance with absolute values may lead to misinterpretation of CBC data. Current Interpretive Data was last revised on 2017. Basophil pct 0.2 % [facility] Comment: Interpretive Data Percent cell count reference ranges are not reported, since discordance with absolute values may lead to misinterpretation of CBC data. Current Interpretive Data was last revised on 2017. Blood 02/25/2025 10:0 1 AM CDT 02/25/2025 10:49 AM CDT Savannah Valenzuela MD PhD LAB BLOOD ORDERABLES Final Resu lt [facility] [place] [address] * (ABNORMAL) CBC with auto differential (02/25/2025 10:01 AM CDT) WBC 11.39(H) 3.80 - 9.90 K/cumm Hgb 9.2(L) 13.0 - 17.5 g/dL [facility] Hct 28.9(L) 38.9 - 50.3 % [facility] Plt 180 150 - 400 K/cumm [facility] MPV 10.3 9.1 - 12.3 fL [facility] RBC 3.29(L) 4.30 - 5.80 M/cumm [facility] MCV 87.8 81.3 - 96.4 fL [facility] MCH 28.0 27.1 - 33.3 pg [facility] MCHC 31.8(L) 32.3 - 35.7 g/dL [facility] RDW CV 15.1(H) 11.1 - 14.9 % [facility] RDW SD 48.9(H) 35.7 - 48.1 fL [facility] NRBC abs 0.00 0.00 - 0.01 K/cumm [facility] Blood 02/25/2025 10:0 1 AM CDT 02/25/2025 10:49 AM CDT Savannah Valenzuela MD PhD LAB BLOOD ORDERABLES Final Resu lt Performing Organization Address [facility]/ZIP Co de Phone Number [facility] [place] [address] * Blood culture Blood Peripheral (02/25/2025 10:01 AM CDT) Report Final Report: No growth Blood (Peripheral) 02/25/2025 10:01 AM CDT 02/25/2025 10:26 AM CDT Narrative [facility] - 03/01/2025 12:01 PM CDT From [...] performance characteristics have been verified by the [facility]. For questions about this culture, contact the Microbiology Laboratory at [phone]. Interpretive data was last revised on 24. Savannah Valenzuela MD PhD LAB MICROBIOLOGY - GENERAL [facility] Final Result Performing Organization Address [facility]/ZIP Co de Phone Number [facility] [place] [address] * Blood culture Blood Peripheral (02/25/2025 10:01 AM CDT) Report Final Report: No growth Blood (Peripheral) 02/25/2025 10:01 AM CDT 02/25/2025 10:26 AM CDT [facility] - 03/01/2025 12:01 PM CDT Draw Blood [...] performance characteristics have been verified by the [facility]. For questions about this culture, contact the Microbiology Laboratory at [phone]. Interpretive data was last revised on 24. Savannah Valenzuela MD PhD LAB MICROBIOLOGY - GENERAL ANTONIO WALKER Final Result [facility] [place] [address] * Phosphorus (02/25/2025 10:01 AM CDT) Phosphorus, pl 2.3 2.3 - 4.5 mg/dL Blood 02/25/2025 10:0 1 AM CDT 02/25/2025 10:23 AM CDT Ezekiel Roberts MD LAB BLOOD ORDERABLES Final Resul t Performing Organization Address City/[facility]/ZIP Co de Phone Number [facility] [place] [address] * Magnesium (02/25/2025 10:01 AM CDT) Pathologist [facility] Magnesium 2.0 1.4 - 2.5 mg/dL Blood 02/25/2025 10:0 1 AM CDT 02/25/2025 10:23 AM CDT Ezekiel Roberts MD LAB BLOOD ORDERABLES Final Resul t Performing Organization Address [email or web address]] de Phone Number [facility] [place] [place] [address] * (ABNORMAL) Comprehensive metabolic panel (02/25/2025 10:01 AM CDT) Pathologist [facility] Sodium 143 135 - 145 mmol/L Potassium, pl 2.7(L) 3.3 - 4.9 mmol/L [facility] Chloride 100 97 - 110 mmol/L [facility] CO2 32 22 - 32 mmol/L [facility] Anion gap 11 2 - 15 mmol/L [facility] BUN 19 6 - 25 mg/dL [facility] Creatinine 0.87 0.80 - 1.30 mg/dL [facility] Glucose 114 70 - 199 mg/dL [facility] Comment: Interpretive Data Fasting glucose [...] 2022. Calcium 8.3(L) 8.5 - 10.3 mg/dL [facility] Bilirubin, total 0.7 0.1 - 1.2 mg/dL [facility] Protein, pl 5.9(L) 6.5 - 8.5 g/dL [facility] Albumin 3.0(L) 3.5 - 5.0 g/dL [facility] Alk phos 77 40 - 130 Units/L [facility] ALT 18 7 - 55 Units/L [facility] AST 24 10 - 50 Units/L [facility] Blood 02/25/2025 10:0 1 AM CDT 02/25/2025 10:23 AM CDT us Savannah Valenzuela MD PhD LAB BLOOD ORDERABLES Final Resu lt Performing Organization Address City/[facility]/ZIP Co de Phone Number [facility] [place] [address] * ECG 12-LEAD (02/25/2025 9:57 AM CDT) Narrative [facility] - 02/25/2025 9:57 AM CDT Ezekiel Roberts [...] workup in the ED Comments: No STEMI us Savannah Valenzuela MD PhD ECG ORDERABLES Final Result Performing Organization Address City/[facility]/ZIP Co de Phone Number [facility] * XR Chest 1 Vw Portable (02/25/2025 [...] it. Electronically signed by: Radha Rg M.D. Savannah Valenzuela MD PhD IMG XR PROCEDURES [...] Meadows MD LAB BLOOD ORDERABLES Final Result [facility] [place] [address] * (ABNORMAL) CBC without differential (02/18/2025 6:56 PM CDT) WBC 14.61(H) 3.80 - 9.90 K/cumm Hgb 9.5(L) 13.0 - 17.5 g/dL [facility] Hct 30.1(L) 38.9 - 50.3 % [facility] Plt 207 150 - 400 K/cumm [facility] MPV 11.0 9.1 - 12.3 fL [facility] RBC 3.38(L) 4.30 - 5.80 M/cumm [facility] MCV 89.1 81.3 - 96.4 fL [facility] MCH 28.1 27.1 - 33.3 pg [facility] MCHC 31.6(L) 32.3 - 35.7 g/dL [facility] RDW CV 14.6 11.1 - 14.9 % [facility] RDW SD 46.8 35.7 - 48.1 fL [facility] NRBC abs 0.00 0.00 - 0.01 K/cumm [facility] Blood 02/18/2025 6:56 PM CDT 02/18/2025 7:28 PM CDT us Alena Meadows MD LAB BLOOD ORDERABLES Final Result Performing Organization Address City/[facility] Co de Phone Number [facility] [place] [address] * Magnesium (02/18/2025 6:56 PM CDT) [facility] Magnesium 2.0 1.4 - 2.5 mg/dL Blood 02/18/2025 6:56 PM CDT 02/18/2025 7:27 PM CDT Alena Meadows MD LAB BLOOD ORDERABLES Final Result Performing Organization Address [facility] [[email or web address]] de Phone Number [facility] [place] [address] * (ABNORMAL) Comprehensive metabolic panel (02/18/2025 6:56 PM CDT) [facility] Sodium 138 135 - 145 mmol/L Potassium, pl 3.5 3.3 - 4.9 mmol/L [facility] Chloride 100 97 - 110 mmol/L [facility] CO2 30 22 - 32 mmol/L [facility] Anion gap 8 2 - 15 mmol/L [facility] BUN 22 6 - 25 mg/dL [facility] Creatinine 0.94 0.80 - 1.30 mg/dL [facility] Glucose 131 70 - 199 mg/dL [facility] Comment: Interpretive Data Fasting glucose [...] 2022. Calcium 8.2(L) 8.5 - 10.3 mg/dL [facility] Bilirubin, total 0.4 0.1 - 1.2 mg/dL [facility] Protein, pl 5.9(L) 6.5 - 8.5 g/dL [facility] Albumin 2.9(L) 3.5 - 5.0 g/dL [facility] Alk phos 93 40 - 130 Units/L [facility] ALT 16 7 - 55 Units/L [facility] AST 17 10 - 50 Units/L [facility] Blood 02/18/2025 6:56 PM CDT 02/18/2025 7:27 PM CDT Alena Meadows MD LAB BLOOD ORDERABLES Final Result Performing Organization Address City/[facility]/ZIP Co de Phone Number [facility] [place] [address] * Sepsis Lactate w/ Reflex (02/17/2025 4:32 PM CDT) Pathologist [facility] Sepsis Lactate 0.9 0.7 - 2.0 mmol/L Blood 02/17/2025 4:32 PM CDT 02/17/2025 4:42 PM CDT us Juanita Rogers MD LAB BLOOD ORDERABLES Final Result [facility] [place] [place] [address] * eGFR (02/17/2025 4:32 PM CDT) Pathologist [facility] eGFR 74 >=60 mL/min/1. 73 m2 Comment: [...] Rogers MD LAB BLOOD ORDERABLES Final Result [facility] [place] [address] * (ABNORMAL) Differential, auto (02/17/2025 4:32 PM CDT) Neutrophil abs 12.39(H) 1.50 - 6.50 K/cumm Imm gran abs 0.08 0.00 - 0.10 K/cumm [facility] Lymphocyte abs 0.59(L) 0.80 - 3.30 K/cumm [facility] Monocyte abs 1.38(H) 0.20 - 0.80 K/cumm [facility] Eosinophil abs 0.06 0.00 - 0.50 K/cumm [facility] Basophil abs 0.02 0.00 - 0.10 K/cumm [facility] Neutrophil pct 85.3 % [facility] Comment: Interpretive Data Percent cell count reference ranges are not reported, since discordance with absolute values may lead to misinterpretation of CBC data. Current Interpretive Data was last revised on 2017. Imm gran pct 0.6 % [facility] Comment: Interpretive Data Percent cell count reference ranges are not reported, since discordance with absolute values may lead to misinterpretation of CBC data. Current Interpretive Data was last revised on 2017. Lymphocyte pct 4.1 % [facility] Comment: Interpretive Data Percent cell count reference ranges are not reported, since discordance with absolute values may lead to misinterpretation of CBC data. Current Interpretive Data was last revised on 2017. Monocyte pct 9.5 % [facility] Comment: Interpretive Data Percent cell count reference ranges are not reported, since discordance with absolute values may lead to misinterpretation of CBC data. Current Interpretive Data was last revised on 2017. Eosinophil pct 0.4 % [facility] Comment: Interpretive Data Percent cell count reference ranges are not reported, since discordance with absolute values may lead to misinterpretation of CBC data. Current Interpretive Data was last revised on 2017. Basophil pct 0.1 % [facility] Comment: Interpretive Data Percent cell count reference ranges are not reported, since discordance with absolute values may lead to misinterpretation of CBC data. Current Interpretive Data was last revised on 2017. Blood 02/17/2025 4:32 PM CDT 02/17/2025 4:44 PM CDT us Juanita Rogers MD LAB BLOOD ORDERABLES Final Result [facility] [place] [address] * (ABNORMAL) CBC with auto differential (02/17/2025 4:32 PM CDT) WBC 14.66(H) 3.80 - 9.90 K/cumm Hgb 9.8(L) 13.0 - 17.5 g/dL [facility] Hct 30.9(L) 38.9 - 50.3 % [facility] Plt 177 150 - 400 K/cumm [facility] MPV 11.0 9.1 - 12.3 fL [facility] RBC 3.44(L) 4.30 - 5.80 M/cumm [facility] [facility] MCV 89.8 81.3 - 96.4 fL [facility] MCH 28.5 27.1 - 33.3 pg [facility] MCHC 31.7(L) 32.3 - 35.7 g/dL [facility] RDW CV 14.6 11.1 - 14.9 % [facility] 48.5(H) 35.7 - 48.1 fL [facility] NRBC abs 0.00 0.00 - 0.01 K/cumm [facility] Blood 02/17/2025 4:32 PM CDT 02/17/2025 4:44 PM CDT us Juanita Rogers MD LAB BLOOD ORDERABLES Final Result [facility] Department [place] [address] * Blood culture Blood Peripheral (02/17/2025 4:32 PM CDT) Report Final Report: No growth Blood (Peripheral) 02/17/2025 4:32 PM CDT 02/17/2025 4:48 PM CDT Narrative [facility] - 02/22/2025 7:00 AM CDT Received [...] performance characteristics have been verified by the [facility]. For questions about this culture, contact the Microbiology Laboratory at [phone]. Interpretive data was last revised on 24. Juanita Rogers MD LAB MICROBIOLOGY - GENERAL ORDERABLES Final Result [facility] Department [place] [address] * Blood culture Blood Peripheral (02/17/2025 4:32 PM CDT) Report Final Report: No growth Blood (Peripheral) 02/17/2025 4:32 PM CDT 02/17/2025 4:47 PM CDT Narrative [facility] - 02/22/2025 7:00 AM CDT Received [...] performance characteristics have been verified by the [facility]. For questions about this culture, contact the Microbiology Laboratory at [phone]. Interpretive data was last revised on 24. Juanita Rogers MD LAB MICROBIOLOGY - GENERAL ORDERABLES Final Result [facility] Department [place] [address] * (ABNORMAL) Comprehensive metabolic panel (02/17/2025 4:32 PM CDT) Sodium 144 135 - 145 mmol/L Potassium, pl 3.3 3.3 - 4.9 mmol/L [facility] Chloride 104 97 - 110 mmol/L [facility] CO2 28 22 - 32 mmol/L [facility] Anion gap 12 2 - 15 mmol/L [facility] BUN 19 6 - 25 mg/dL [facility] Creatinine 1.05 0.80 - 1.30 mg/dL [facility] Glucose 98 70 - 199 mg/dL [facility] Comment: Interpretive Data Fasting glucose [...] 2022. Calcium 8.4(L) 8.5 - 10.3 mg/dL [facility] Bilirubin, total 0.5 0.1 - 1.2 mg/dL [facility] Protein, pl 6.4(L) 6.5 - 8.5 g/dL [facility] Albumin 3.1(L) 3.5 - 5.0 g/dL [facility] Alk phos 87 40 - 130 Units/L [facility] ALT 16 7 - 55 Units/L [facility] AST 18 10 - 50 Units/L [facility] Blood 02/17/2025 4:32 PM CDT 02/17/2025 4:43 PM CDT us Juanita Rogers MD LAB BLOOD ORDERABLES Final Result Performing Organization Address City/[facility]/ZIP Co de Phone Number [facility] [place] [address] * (ABNORMAL) Urinalysis reflex to microscopic and culture Urine (02/17/2025 3:48 PM CDT) Color, ur Straw Yellow Clarity, ur Clear Clear [facility] Specific gravity, ur 1.015 1.003 - 1.030 [facility] pH, urine 6.0 [facility] Comment: Interpretive Data U rine pH is affected by diet, medications, systemic acid-base disturbances, and renal tubular function. pH may affect urinary stone formation. For example, urine pH below 6.0 may help reduce the tendency for calcium phosphate stones and pH greater than 6.0 may reduce the tendency for uric acid stone formation. Source: [facility] Current Interpretive Data was last revised on 2017 Protein, ur ql Trace Negative [facility] Glucose, ur ql Negative Negative [facility] Ketones, ur Trace Negative [facility] Bilirubin, ur Negative Negative [facility] Blood, ur Negative Negative [facility] Urobilinogen, ur <2.0 <2.0 mg/dL [facility] Nitrite, ur Negative Negative [facility] Leukocyte esterase, ur Trace(A) Negative [facility] UA reflex comment Reflex to microscopic UA will be performed. [facility] Urine 02/17/2025 3:48 PM CDT 02/17/2025 4:42 PM CDT us Jean Marie Reid MD LAB MICROBIOLOGY - GENE [facility] ORDERABLES Final Result Performing Organization Address City/[facility]/ZIP Co de Phone Number [facility] Department [place] [address] * Urinalysis, microscopic only (02/17/2025 3:48 PM CDT) WBC, ur 0-5 0 - 5 /HPF RBC, ur 0-2 0 - 2 /HPF [facility] Epithelial cells, squamous, ur 1-5 0 - 5 /HPF [facility] Urine 02/17/2025 3:48 PM CDT 02/17/2025 4:42 PM CDT Jean Marie Reid MD LAB URINE ORDERABLES Fi nal Result Performing Organization Address [facility] Co de Phone Number [facility] Department [place] [address] * Urine culture Urine, suprapubic catheter (02/17/2025 3:48 PM CDT) Report Final Report: Less than 100,000 colonies/mL (clinically insignificant growth based on current clinical standards) Organism (CLINICALLY INSIGNIFICANT GROWTH [facility] Urine, suprapubic catheter 02/17/2025 3:48 PM CDT 02/17/2025 4:40 PM CDT Narrative [facility] - 02/18/2025 6:14 PM CDT Specimen received in a sterile container. Indications for Culture:->Recent positive UA Testing performed by [facility] ([phone]) Jean Marie Reid MD LAB MICROBIOLOGY - GENE RAL ORDERABLES Final Result Performing Organization Address [facility] Co de Phone Number [facility] Department [place] [address] * COLONOSCOPY (01/01/2020 8:32 AM CDT) Anatomical Region Laterality Modality Other Narrative Procedure Note Madi Melendez MD - 01/01/2020 8:32 AM CDT ENDOSCOPY LAB Patient Name: Jerome Askew Procedure Date: 01/01/2020 8:32 AM Admit Type: Outpatient Room: [facility] 2 Date of : 1950 Instrument Name: [id number] Gender: Male Note Status: Finalized Procedure: Colonoscopy Indications: Abdominal pain in the left lower quadrant,constipation, date of last scope unknown, better with [id number] Comorbidities spastic paraplegia Providers: Madi Melendez M.D. [...] ago Cortney Viveros RN 02/10/2021 04/23/2024 Insurance [facility] MEDICARE [place] [id number] * Guarantor: Jerome Askew Account Type Relation to Patient Date of Phone Billing Address Personal/Family Self 1950 [facility] [address] [place] [address] ID[employer] MEDICARE [employer] [facility] [place] [facility] * Guarantor: Jerome Askew Account Type Relation to Patient Date of Phone Billing Address Personal/Family Self 1950 [facility] [address] [place] [address] MEDICARE [id number] [place] [id number] MEDICARE [facility] Advance Directives For more information, please contact: [phone] Documents on File Type Date Recorded 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 [address] PCP - General Internal Medicine 04/04/25
--- OUTSIDE RECORDS SUMMARY | 2025-04-23 01:47 | XMS_ITS | Encounter Summary ---
Author Organization [facility] Address [address] [place] [address] Care Team Providers Care Manager Mall Name Role Phone Unavailable Primary Care Provider Unavailabl e Encounter Details Date Type Department Care Team (Latest Contact Info) Description 03/15/2006 Inpatient Historical HIS PATIENT IN A BED Yenny Hauser MD NO ADDRESS ON FILE Devan Agrawal MD [address] [facility] 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 Gender Identity Not on file Sexual [...] ORDERABLES Final R esult Performing Organization Address City/[facility] Phone Number [...] ORDERABLES Final R esult Performing Organization Address City/[facility] Phone Number INTERFACE SYSTEM Refer to clinic/hospital department * MAGNESIUM LEVEL (03/19/2006 4:38 AM CDT) MAGNESIUM 1.7 1.5 - 2.5 mg/dL INTERFACE SYSTEM 03/19/2006 4:38 AM CDT Yenny Hauser MD CHEMISTRY ORDERABLES Final Re sult Performing Organization Address City/[facility] Co de Phone Number INTERFACE SYSTEM Refer [...] ORDERABLES Final Re sult Performing Organization Address City/[facility] Co de Phone Number INTERFACE SYSTEM Refer to clinic/hospital department * VANCOMYCIN LEVEL TROUGH (03/18/2006 11:30 AM CDT) Pathologist [facility] VANCOMYCIN, TROUGH 11.5 5.0 - 15.0 ug/mL INTERFACE SYSTEM Comment: Vancomycin Trough Toxic Level= >15.0 ug/mL 03/18/2006 11:3 0 AM CDT Yenny Hauser MD CHEMISTRY ORDERABLES Final Re sult Performing Organization Address [facility] Co de Phone Number INTERFACE SYSTEM Refer [...] ORDERABLES Final Res ult Performing Organization Address City/[facility] de Phone Number INTERFACE [...] ORDERABLES Final Resu lt Performing Organization Address [facility] Phone Number [...] HEMATOLOGY ORDERABLES Final Result Performing Organization Address [facility] Phone Number [...] HEMATOLOGY ORDERABLES Final Result Performing Organization Address [facility] Phone Number INTERFACE SYSTEM Refer to clinic/hospital department * (ABNORMAL) C-REACTIVE PROTEIN (03/17/2006 4:45 AM CDT) CRP 2.4(H) 0.0 - 0.8 mg/dL INTERFACE SYSTEM 03/17/2006 4:45 AM CDT Historical Provider CHEMISTRY ORDERABLES Final R esult Performing Organization Address [facility] Phone Number [...] ORDERABLES Final R esult Performing Organization Address City/[facility] Phone Number INTERFACE SYSTEM Refer to clinic/hospital department * (ABNORMAL) ACETONE QUALITATIVE (03/16/2006 6:30 PM CDT) ACETONE QUAL 2+ (30 mg/dL)(A) Neg (<10 mg/dL) INTERFACE SYSTEM 03/16/2006 6:30 PM CDT us Historical Provider CHEMISTRY ORDERABLES Final R esult Performing Organization Address [facility] Phone Number INTERFACE SYSTEM Refer to clinic/hospital department * LACTIC ACID (03/16/2006 6:30 PM CDT) LACTIC ACID 1.0 0.5 - 2.2 mmol/L INTERFACE SYSTEM 03/16/2006 6:30 PM CDT us Historical Provider CHEMISTRY ORDERABLES Final R esult Performing Organization Address [facility] Phone Number [...] ORDERABLES Final Resu lt Performing Organization Address [facility] Phone Number [...] HEMATOLOGY ORDERABLES Final Result Performing Organization Address City/[facility] Phone Number [...] ORDERABLES Final R esult Performing Organization Address City/[facility] de Phone Number INTERFACE [...] ORDERABLES Final Res ult Performing Organization Address [facility] Phone Number [...] ORDERABLES Final Res ult Performing Organization Address [facility] de Phone Number INTERFACE [...]
--- OUTSIDE RECORDS SUMMARY | 2025-04-23 01:47 | XMS_ITS | Encounter Summary ---
Author Organization [facility] Address [address] [place] [address] Care Team Providers Care Life Insurance Actuary Name Role Phone Unavailable Primary Care Provider Unavailabl e Encounter Details Date Type Department Care Team (Late st Contact Info) Description 03/14/2006 Outpatient Historical [facility] Adult Hospitalists [facility] [address] [place] [address] Devan Agrawal MD [address] [facility] 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
--- OUTSIDE RECORDS SUMMARY | 2025-04-23 01:47 | XMS_ITS | Encounter Summary ---
Author Organization [facility] Address 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
--- OUTSIDE RECORDS SUMMARY | 2025-04-23 01:47 | XMS_ITS | Clinical Summary ---
Author Organization [facility] Address [address] [place] [address] Phone Care Team Providers Care Industrial Cafeteria Manager Name Role Phone JATIN STEPHEN, LUAN Carvajal [phone] Reason for Visit and Chief Complaint POST PROCEDURE PHONE CALL Problems Includes: Problems addressed during this encounter and other active Problems All Visits Onset Date Resolved Date Provider Condition S tatus Anemia 07/15/2023 LUAN STEINER MD Active Last Documented On 4 3:17PM ; [facility] Cerebral Infarction 07/15/2023 LUAN Arriaga Active Last Documented On 4 3:19PM ; [facility] Cervicalgia 07/15/2023 LUAN STEINER MD Active Last Documented On 4 3:16PM ; [facility] Constipation 07/15/2023 LUAN STEINER MD Activ e Last Documented On 4 3:17PM ; [facility] Hyperlipidemia 07/15/2023 LUAN STEINER MD Act lottie Last Documented On 4 3:18PM ; [facility] Essential Hypertension 07/15/2023 LUAN NATH MD Active Last Documented On 4 3:20PM ; [facility] Major Depression 07/15/2023 LUAN STEINER MD A ctive Last Documented On 4 3:17PM ; [facility] Neuromuscular Dysfunction of Bladder 07/15/2023 LUAN STEINER MD Active Last Documented On 4 3:17PM ; [facility] Neurogenic Bowel 07/15/2023 LUAN STEINER MD A ctive Last Documented On 4 3:18PM ; [facility] Quadriplegia 07/15/2023 LUAN STEINER MD Activ e Last Documented On 4 3:16PM ; [facility] Risk: Gastro-esophageal Reflux 07/15/2023 WILLI HAILEY STEINER MD Active Last Documented On 4 3:20PM ; [facility] Urethra Catheter in Place 07/15/2023 LUAN STEINER MD Active Last Documented On 4 3:14PM ; [facility] Urinary Tract Infection 07/15/2023 LAUN GLEASON OM, MD Active Last Documented On 4 3:18PM ; [facility] Plan of Treatment Pending Tests Order Diagnosis Results Due Ordering Provider Pain Management CPT Neurostimulator lead and generator, implantable [facility] compl of implnt elec nstim, generator, init 08/14/23 LUAN STEINER MD Last Documented On 4 2:29PM ; [facility] Pain Management CPT Permanent Spinal Cor d Stimulator Insert/Replace [facility] compl of implnt elec nstim, generator, init 08/14/23 LUAN STEINER MD Last Documented On 4 2:29PM ; [facility] Outside Procedures - Cardiology EKG Essential (primary) hypertension 08/14/23 LUAN STEINER MD Last Documented On 4 1:55PM ; [facility] Assessments Includes: Assessments from [...] 07/15/2023 2:59PM By Brooke Brown RN ; [facility] Acidophilus Probiotic Oral Capsule 07/15/2023 Provid er: Diagnosis: Daily Last Documented On 07/15/2023 2:59PM By Brooke Brown RN ; [facility] amLODIPine Besylate 10 MG Oral Tablet 07/15/2023 Pro vider: Diagnosis: Daily Last Documented On 07/15/2023 3:00PM By Brooke Brown RN ; [facility] Ascorbic Acid 500 MG Oral Tablet 07/15/2023 Provider : Diagnosis: Daily Last Documented On 07/15/2023 3:00PM By Brooke Brown RN ; [facility] Aspirin 81 MG Oral Tablet Chewable 07/15/2023 Provid er: Diagnosis: Daily Last Documented On 07/15/2023 3:02PM By Brooke Brown RN ; [facility] Atorvastatin Calcium 80 MG Oral Tablet 07/15/2023 Pr ovider: Diagnosis: Daily Last Documented On 07/15/2023 3:03PM By Brooke Brown RN ; [facility] Baclofen 5 MG Oral Tablet 07/15/2023 Provider: Diagnosis: Daily TID Last Documented On 07/15/2023 3:03PM By Brooke Brown RN ; [facility] Bisacodyl 5 MG Oral Tablet Delayed Release 07/15/2023 Provider: Diagnosis: PRN Last Documented On 07/15/2023 3:03PM By Brooke Brown RN ; [facility] Claritin 10 MG Oral Tablet 07/15/2023 Provider: Diagnosis: Daily Last Documented On 07/15/2023 3:04PM By Brooke Brown RN ; [facility] Cranberry 450 MG Oral Capsule 07/15/2023 Provider: Diagnosis: BID Last Documented On 07/15/2023 3:04PM By Brooke Brown RN ; [facility] Ferrous Sulfate 325 (65 Fe) MG Oral Tablet Delayed Rel ease 07/15/2023 Provider: Diagnosis: Daily Last Documented On 07/15/2023 3:05PM By Brooke Brown RN ; [facility] Fleet Bisacodyl 10 MG/30ML Rectal Enema 07/15/2023 P rovider: Diagnosis: once a day prn Last Documented On 07/15/2023 3:05PM By Brooke Brown RN ; [facility] B Ufyspar-D-Uregq Acid Oral Tablet 07/15/2023 Provid er: Diagnosis: daily 1 mg Last Documented On 07/15/2023 3:06PM By Brooke Brown RN ; [facility] HM Lidocaine Patch 4% External 07/15/2023 Provider: Diagnosis: 5% 2 patches q 12 hrs Last Documented On 07/15/2023 3:07PM By Brooke Brown RN ; [facility] Mineral Oil Oral 07/15/2023 Provider: Diagnosis: TID prn Last Documented On 07/15/2023 3:08PM By Brooke Brown RN ; [facility] Myrbetriq 25 MG Oral Tablet Extended Release 24 Hour 0 07/15/2023 Provider: Diagnosis: Daily Last Documented On 07/15/2023 3:08PM By Brooke Brown RN ; [facility] Simethicone 80 MG Oral Tablet Chewable 07/15/2023 Pr ovider: Diagnosis: BID Last Documented On 07/15/2023 3:09PM By Brooke Brown RN ; [facility] Daily Value Multivitamin Oral Tablet 07/15/2023 Prov ider: Diagnosis: daily Last Documented On 07/15/2023 3:09PM By Brooke Brown RN ; [facility] Metamucil 28% Oral Packet 07/15/2023 Provider: Diagnosis: BID Last Documented On 07/15/2023 3:10PM By Brooke Brown RN ; [facility] Metoprolol Tartrate 25 MG Oral Tablet 07/15/2023 Pro vider: Diagnosis: BID Last Documented On 07/15/2023 3:11PM By Brooke Brown RN ; [facility] Protonix 40 MG Oral Tablet Delayed Release 07/15/2023 Provider: Diagnosis: BID Last Documented On 07/15/2023 3:11PM By Brooke Brown RN ; [facility] Prinivil 10 MG Oral Tablet 07/15/2023 Provider: Diagnosis: 2 tabs once a day Last Documented On 07/15/2023 3:12PM By Brooke Brown RN ; [facility] Anusol-HC 2.5% External Cream 07/15/2023 Provider: Diagnosis: prn Last Documented On 07/15/2023 3:12PM By Brooke Brown RN ; [facility] Naloxone HCl 4 MG/0.1ML Nasal Liquid 07/15/2023 Prov ider: Diagnosis: prn Last Documented On 07/15/2023 3:12PM By Brooke Brown RN ; [facility] Lyrica 100 MG Oral Capsule 07/15/2023 Provider: Diagnosis: BID Last Documented On 07/15/2023 3:27PM By Brooke Brown RN ; [facility] Medications Administered Includes: Administered Medications from this encounter No Administered Medications Recorded Results Includes: Results discussed during this encounter No Results Recorded For Specified Dates History of Present Illness Includes: History of Present Illness from this encounter No History of Present Illness Recorded Social History Description Last Updated Tobacco non-user 07/15/2023 Last Documented On 4 12:25PM ; [facility] No consumption of alcohol 07/15/2023 Last Documented On 4 12:25PM ; [facility] Not using drugs 07/15/2023 Last Documented On 4 12:25PM ; [facility] No recent change in sleep 07/15/2023 Last Documented On 4 12:25PM ; [facility] Smoking Status Unknown Procedures and Surgical History Surgical History Last Updated Pacemaker 07/15/2023 Last Documented On 4 12:25PM ; [facility] Medical History Includes: Medical History addressed during this encounter Description Last Updated Denies a fear of falling. 07/15/2023 Last Documented On 4 12:25PM ; [facility] Has had no fall in the last 12 months. 0 07/15/2023 Last Documented On 4 12:25PM ; [facility] Currently wearing eyeglasses 07/15/2023 Last Documented On 4 12:25PM ; [facility] Moderate to severe pain 07/15/2023 Last Documented On 4 12:25PM ; [facility] No Spinal cord stimulator 07/15/2023 Last Documented On 4 12:25PM ; [facility] Pain Pump 07/15/2023 Last Documented On 4 12:25PM ; [facility] Please list all illnesses/co nditions you have been diagnosed with: Paralyzed 07/15/2023 Last Documented On 4 12:25PM ; [facility] Please list all surgeries: Pain pump 201 4stimuliers are in back 2015 07/15/2023 Last Documented On 4 12:25PM ; [facility] Treatment with TENS unit 07/15/2023 Last Documented On 4 12:25PM ; [facility] Which brand of pacemaker/defibrillator d o you have? Implants 07/15/2023 Last Documented On 4 12:25PM ; [facility] Blood pressure was high 07/15/2023 Last Documented On 4 12:25PM ; [facility] Hypertension 07/15/2023 Last Documented On 4 12:25PM ; [facility] No exposure to a contagious disease 07/05 Last Documented On 4 12:25PM ; [facility] No previous psychiatric treatment 2023 Last Documented On 4 12:25PM ; [facility] Not taking OTC medications 07/15/2023 Last Documented On 4 12:25PM ; [facility] Taking medication for high blood pressur e 07/15/2023 Last Documented On 4 12:25PM ; [facility] Family History Includes: Family History addressed during this encounter Description Last Updated Family history of Arthritis 07/15/2023 Last Documented On 4 12:25PM ; [facility] Maternal history of Arthritis 07/15/2023 Last Documented On 4 12:25PM ; [facility] Review of Systems Includes: Review of Systems [...] ve Last Documented On 4 8:38AM ; [facility] Effexor XR Allergy 07/15/2023 Active Last Documented On 4 8:38AM ; [facility] Bactrim Allergy 07/15/2023 Active Last Documented On 4 8:38AM ; [facility] Encounters Encounter Provider Location Date Check-In Time Check-Out Time Diagnosis POST PROCEDURE PHONE CALL LUAN STEINER MD 08/16/2023 12:23PM 11:59PM Insurance Includes: Active Insurance Policies Plan Name Member ID Group # Subscriber Relationship Effect lottie Dates 1 - [facility] [id number] JEROME ASKEW Self 2 - [facility] [id number] JEROME ASKEW Self Clinical Notes Includes: Clinical Notes from this encounter * Progress note Date Encounter Last Documented by 08/16/2023 POST PROCEDURE PHONE CALL Last d ocumented on 08/16/2023; 12:27 PM, Brooke Brown RN; [facility] Top of Document Post-Procedural Patient [...] Daily, 0 days, 0 refills - B [id number]-[id number] Acid Oral Tablet daily 1 mg, 0 [...]
--- OUTSIDE RECORDS SUMMARY | 2025-04-23 01:47 | XMS_ITS | Encounter Summary ---
Author Organization [facility] Address [address] [place] [address] Care Team Providers Care Business Leader Name Role Phone Rod Strauss MD Primary Care Provider + [phone] Encounter Details Date Type Department Care Team (Late st Contact Info) Description 03/13/2025 Lab Requisition [facility] [address] [place] [address] Unknown, Provider Social History Tobacco Use Types [...] were you homeless or living in a skilled nursing (including now)? Patient declined 05/31/2024 Sex and Gender Information Value Date Recorded Sex Assigned at Not on file Legal Sex Male 5:23 PM TAPPER SUPERVISOR Gender Identity Not on file Sexual Orientation Not on file documented as of this encounter Functional Status * Is person deaf or have serious hearing difficulty? Answer Date of Assessment Author Yes 06/01/2024 12:21 PM TAPPER SUPERVISOR Princess Ohara RN * Is person blind or have serious difficulty seeing? Answer Date of Assessment Author No 06/01/2024 12:21 PM TAPPER SUPERVISOR Princess Ohara RN * Does person have serious difficulty walking/climbing stairs? Answer Date of Assessment Author Yes 06/01/2024 12:21 PM TAPPER SUPERVISOR Princess Ohara RN * Does person have difficulty dressing/bathing? Answer Date of Assessment Author Yes 06/01/2024 12:21 PM TAPPER SUPERVISOR Princess Ohara RN * Does person have difficulty doing errands alone? Answer Date of Assessment Author Yes 06/01/2024 12:21 PM TAPPER SUPERVISOR Princess Ohara RN documented as of this encounter Mental Status * Does person have difficulty concentrating/remembering/making decisions? Answer Entry Date Author No 06/01/2024 12:21 PM TAPPER SUPERVISOR Princess Ohara RN documented in this encounter Plan of Treatment Upcoming Encounters Date Type Department Care Team (Late st Contact Info) Description 05/14/2025 9:00 AM TAPPER SUPERVISOR Office Visit [facility] - Urology [address] [place] [address] Rustam Bernabe PA [address] [place] [address] documented as of this encounter [...] - 74 % 03/13/2025 6:26 PM CDT [facility] Lymphocyte % 1(L) 17 - 47 % 03/13/2025 6:26 PM CDT [facility] Monocyte % 7 3 - 11 % 03/13/2025 6:26 PM CDT [facility] Neutrophil Absolute 14.08(H) 1.60 - 7.50 x10E9/L 03/13/2025 6:26 PM CDT [facility] Lymphocyte Absolute 0.15(L) 1.00 - 4.40 x10E9/L 03/13/2025 6:26 PM CDT [facility] Monocyte Absolute 1.07(H) 0.15 - 1.00 x10E9/L 03/13/2025 6:26 PM CDT [facility] RBC Morphology NORMAL 03/13/2025 6:26 PM CDT [facility] Blood BLOOD SPECIMEN / Unknown 03/13/2025 4:40 PM CDT 03/13/2025 5:42 PM CDT us Provider Unknown LAB - HEMATOLOGY ORDERABLES Fin al Result [facility] [address] [place] [address] * (ABNORMAL) COMPREHENSIVE METABOLIC PANEL (03/13/2025 4:40 PM CDT) [facility] Glucose 118(H) 70 - 99 mg/dL 03/13/2025 6:07 PM [facility] Sodium 135(L) 136 - 145 mmol/L 03/13/2025 6:07 PM [facility] Potassium 3.6 3.5 - 5.1 mmol/L 03/13/2025 6:07 PM [facility] Chloride 98 98 - 107 mmol/L 03/13/2025 6:07 PM [facility] CO2 27 22 - 29 mmol/L 03/13/2025 6:07 PM [facility] Calcium 7.7(L) 8.4 - 10.4 mg/dL 03/13/2025 6:07 PM [facility] Anion Gap 10 6 - 16 mmol/L 03/13/2025 6:07 PM [facility] BUN 23 7 - 26 mg/dL 03/13/2025 6:07 PM [facility] Creatinine 0.74 0.72 - 1.25 mg/dL 03/13/2025 6:07 PM [facility] Alkaline Phosphatase 94 40 - 150 U/L 03/13/2025 6:07 PM [facility] ALT 31 6 - 57 U/L 03/13/2025 6:07 PM [facility] AST 39 10 - 48 U/L 03/13/2025 6:07 PM [facility] Protein Total 5.6(L) 6.4 - 8.3 gm/dL 03/13/2025 6:07 PM [facility] Albumin 2.5(L) 3.1 - 4.5 gm/dL 03/13/2025 6:07 PM [facility] Bilirubin Total 0.5 0.2 - 1.2 mg/dL 03/13/2025 6:07 PM [facility] eGFR by CKD-EPI >90 >=90 mL/min/1.7 3 m2 03/13/2025 6:07 PM [facility] Comment:Estimated Glomerular Filtration Rate (eGFR) calculated using the CKD-EPI Creatinine Equation (2020), per the National Kidney Foundation and [place] [employer]ph[employer] recommendations. Blood BLOOD SPECIMEN / Unknown Venipuncture / Unknown 03/13/2025 4:40 PM CDT 03/13/2025 5:42 PM CDT us Provider Unknown LAB - CHEMISTRY ORDERABLES Johanne triny Result [facility] [address] [place] [address] * (ABNORMAL) CBC WITH DIFFERENTIAL (03/13/2025 4:40 PM CDT) WBC 15.3(H) 4.0 - 10.7 x10E9/L 03/13/2025 6:26 PM CDT [facility] RBC Count 2.83(L) 4.30 - 5.80 x10E12/L 03/13/2025 6:26 PM CDT [facility] Hemoglobin 7.9(L) 13.3 - 17.5 g/dL 03/13/2025 6:26 PM CDT [facility] Hematocrit 25.5(L) 38.7 - 51.1 % 03/13/2025 6:26 PM CDT [facility] MCV 90.1 80.0 - 98.0 fL 03/13/2025 6:26 PM CDT [facility] MCH 27.9 26.7 - 33.6 pg 03/13/2025 6:26 PM CDT [facility] MCHC 31.0(L) 31.7 - 36.3 g/dL 03/13/2025 6:26 PM CDT [facility] RDW-CV 15.7(H) 11.3 - 14.8 % 03/13/2025 6:26 PM CDT [facility] Platelet Count 266 150 - 420 x10E9/L 03/13/2025 6:26 PM CDT [facility] MPV 10.8 7.8 - 11.4 fL 03/13/2025 6:26 PM CDT [facility] Blood BLOOD SPECIMEN / Unknown 03/13/2025 4:40 PM CDT 03/13/2025 5:42 PM CDT us Provider Unknown LAB - HEMATOLOGY ORDERABLES Fin al Result [facility] [address] [place] [address] documented in this encounter Visit Diagnoses Not on filedocumented in this encounter Additional Health Concerns Infection Onset Date Last Indicated Resolved Time ESBL GNR 06/01/2024 06/01/2024 documented as of this encounter Care Teams Business Leader Relationship Specialty Start Date End Date Rod Strauss MD [address] [place] [id number] PCP - General Internal Medicine 06/15/24 documented as of this encounter
--- OUTSIDE RECORDS SUMMARY | 2025-04-23 01:47 | XMS_ITS | Encounter Summary ---
Author Organization [facility] Address [address] [place] [address] Care Team Providers Care Post Hole Digger Name Role Phone Unavailable Primary Care Provider Unavailabl e Encounter Details Date Type Department Care Team (Late st Contact Info) Description 01/13/2006 Outpatient Historical [facility] Blood Flow [address] [place] [address] Dillan Henry MD NO ADDRESS ON FILE Social History Tobacco Use Types Packs/Day Years Used Date Smoking Tobacco: Never Assessed Sex and Gender Information Value Date Recorded Sex Assigned at Not on file Legal Sex Male 3:46 AM MANAGER OUTPATIENT Gender Identity Not on file Sexual Orientation Not on file documented as of this encounter Plan of Treatment Not on file documented as of this encounter Visit Diagnoses Not on filedocumented in this encounter
--- OUTSIDE RECORDS SUMMARY | 2025-04-23 01:47 | XMS_ITS | Encounter Summary ---
Author Organization [facility] Address 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
--- OUTSIDE RECORDS SUMMARY | 2025-04-23 01:47 | XMS_ITS | Encounter Summary ---
Author Organization [employer] Address 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 Gender Identity Not on file Sexual [...] ABG ORDERABLES Final Result Performing Organization Address [facility] Phone Number INTERFACE SYSTEM Refer to [...] Final Re sult Performing Organization Address [facility] Phone Number INTERFACE SYSTEM Refer to [...] fL INTERFACE SYSTEM 03/14/2006 4:37 AM [facility] Final Re sult Performing Organization Address [facility] Phone Number INTERFACE SYSTEM Refer to clinic/hospital department * MAGNESIUM LEVEL (03/14/2006 4:37 AM CDT) MAGNESIUM 2.0 1.5 - 2.5 mg/dL INTERFACE SYSTEM 03/14/2006 4:37 AM CDT Rita Esqueda MD CHEMISTRY ORDERABLES Final Res ult Performing Organization Address [facility] Phone Number INTERFACE SYSTEM Refer to clinic/hospital [...] mmol/L INTERFACE SYSTEM 03/14/2006 4:37 AM CDT [facility] Final Res ult Performing Organization Address [facility] Phone Number INTERFACE SYSTEM Refer to clinic/hospital department * (ABNORMAL) C-REACTIVE PROTEIN (03/14/2006 4:37 AM CDT) CRP 4.1(H) 0.0 - 0.8 mg/dL INTERFACE SYSTEM 03/14/2006 4:37 AM CDT [facility] CHEMISTRY ORDERABLES Final Res ult Performing Organization Address [facility] Phone Number INTERFACE SYSTEM Refer to clinic/hospital department * VANCOMYCIN LEVEL TROUGH (03/13/2006 1:02 PM CDT) VANCOMYCIN, TROUGH 8.7 5.0 - 15.0 ug/mL INTERFACE SYSTEM Comment: Vancomycin Trough Toxic Level= >15.0 ug/mL 03/13/2006 1:02 PM CDT [facility]LES Final Res ult Performing Organization Address [facility] Phone Number INTERFACE SYSTEM Refer to clinic/hospital [...] Final R esult Performing Organization Address [facility] Phone Number INTERFACE SYSTEM Refer to clinic/hospital department * C-REACTIVE PROTEIN, CSF (03/12/2006 3:10 PM CDT) CRP, CSF 0.15 mg/dL INTERFACE SYSTEM Comment: Note: New methodology using CSF CRP (highly sensitive) assay is effective 12/11/03. No reference range has been established for CSF CRP. 03/12/2006 3:10 PM CDT Alexa Dillon MD BODY FLUIDS AND STOOLS Final Result Performing Organization Address [facility] Phone Number INTERFACE SYSTEM Refer to clinic/hospital [...] AND STOOLS Final Result Performing Organization Address [facility] Phone Number INTERFACE SYSTEM Refer to clinic/hospital department * (ABNORMAL) TOTAL PROTEIN, CSF (03/12/2006 3:10 PM CDT) PROTEIN, CSF 365(H) 15 - 45 mg/dL INTERFACE SYSTEM Comment: New CSF Protein Quantitative Methodology - Note New Reference Range. bloody sample 03/12/2006 3:10 PM CDT Aman Gottlieb DO BODY FLUIDS AND STOOLS Final Result Performing Organization Address [facility] Phone Number INTERFACE SYSTEM Refer to clinic/hospital [...] PM and read back verified. RBC, CSF 085768(H) <=0 /uL INTERFACE SYSTEM 03/12/2006 3:10 PM CDT us Aman Gottlieb DO BODY FLUIDS AND STOOLS Final Result Performing Organization Address [facility] de Phone Number INTERFACE SYSTEM [...] ORDERABLES Final Result Performing Organization Address [facility] de Phone Number INTERFACE SYSTEM [...] ORDERABLES Final Result Performing Organization Address [facility] Phone Number INTERFACE SYSTEM Refer to [...] Final R esult Performing Organization Address [facility] de Phone Number INTERFACE SYSTEM [...] HEMATOLOGY ORDERABLES Final Result Performing Organization Address City/[facility] de Phone Number INTERFACE SYSTEM [...] HEMATOLOGY ORDERABLES Final Result Performing Organization Address City/[facility] Co de Phone Number INTERFACE SYSTEM Refer to clinic/hospital department * (ABNORMAL) C-REACTIVE PROTEIN (03/11/2006 4:40 AM CDT) CRP 6.5(H) 0.0 - 0.8 mg/dL INTERFACE SYSTEM 03/11/2006 4:40 AM CDT Sushil Arroyo MD CHEMISTRY ORDERABLES Final R [facility] Performing Organization Address [facility] Phone Number INTERFACE SYSTEM Refer to [...] Sushil Arroyo MD CHEMISTRY ORDERABLES [facility] Performing Organization Address [facility] Phone Number INTERFACE SYSTEM Refer to [...] ORDERABLES Final Result Performing Organization Address [facility] Phone Number INTERFACE SYSTEM Refer to [...] Final Resul t Performing Organization Address [facility] de Phone Number INTERFACE SYSTEM [...] HEMATOLOGY ORDERABLES Final Result Performing Organization Address City/[facility] de Phone Number INTERFACE SYSTEM [...] ORDERABLES Final Result Performing Organization Address [facility] de Phone Number INTERFACE SYSTEM [...] ORDERABLES Final Res ult Performing Organization Address City/[facility] de Phone Number INTERFACE SYSTEM [...] Final Res ult Performing Organization Address [facility] Phone Number INTERFACE SYSTEM Refer to [...] Final Res ult Performing Organization Address [facility] Phone Number INTERFACE SYSTEM Refer to clinic/hospital department * (ABNORMAL) C-REACTIVE PROTEIN (03/08/2006 6:34 PM CDT) CRP 5.2(H) 0.0 - 0.8 mg/dL INTERFACE SYSTEM 03/08/2006 6:34 PM CDT us Keenan Mandujano MD CHEMISTRY ORDERABLES Final Resu lt Performing Organization Address [facility] [place] Phone Number INTERFACE SYSTEM Refer to clinic/hospital [...] URINE ORDERABLES Final Result Performing Organization Address [facility] Phone Number INTERFACE SYSTEM Refer to [...] ORDERABLES Final Result Performing Organization Address [facility] Phone Number INTERFACE SYSTEM Refer to [...] Final Resul t Performing Organization Address [facility] Phone Number INTERFACE SYSTEM Refer to [...] ORDERABLES Final Result Performing Organization Address [facility] Phone Number INTERFACE SYSTEM Refer to [...] HEMATOLOGY ORDERABLES Final Result Performing Organization Address City/[facility] de Phone Number INTERFACE SYSTEM [...] ORDERABLES Final R esult Performing Organization Address City/[facility] de Phone Number INTERFACE SYSTEM [...] ORDERABLES Final Result Performing Organization Address [facility] Phone Number INTERFACE SYSTEM Refer to [...] URINE ORDERABLES Final Result Performing Organization Address [facility] Phone Number INTERFACE SYSTEM Refer to [...] ORDERABLES Final Result Performing Organization Address [facility] Phone Number INTERFACE SYSTEM Refer to [...] ORDERABLES Final Result Performing Organization Address [facility] Phone Number INTERFACE SYSTEM Refer to [...] Final R esult Performing Organization Address [facility] de Phone Number INTERFACE SYSTEM [...] ORDERABLES Final Result Performing Organization Address [facility] Phone Number INTERFACE SYSTEM Refer to [...] HEMATOLOGY ORDERABLES Final Result Performing Organization Address City/[facility] Co de Phone Number INTERFACE SYSTEM [...] INTERFACE SYSTEM 02/26/2006 12:4 4 PM CDT [facility] HEMATOLOGY ORDERABLES Final Re sult Performing Organization Address City/[facility] de Phone Number INTERFACE SYSTEM Refer to clinic/hospital department * C-REACTIVE PROTEIN (02/26/2006 12:44 PM CDT) CRP 0.2 0.0 - 0.8 mg/dL INTERFACE SYSTEM 02/26/2006 12:4 4 PM CDT [facility] CHEMISTRY ORDERABLES Final Res ult Performing Organization Address [facility] de Phone Number INTERFACE SYSTEM [...] Final Res ult Performing Organization Address [facility] Phone Number INTERFACE SYSTEM Refer to [...] Final Resul t Performing Organization Address [facility] Phone Number INTERFACE SYSTEM Refer to [...] K/uL INTERFACE SYSTEM 02/25/2006 4:36 AM CDT [facility] HEMATOLOGY ORDERABLES Final Re sult Performing Organization Address [facility] de Phone Number INTERFACE SYSTEM [...] fL INTERFACE SYSTEM 02/25/2006 4:36 AM CDT [facility] HEMATOLOGY ORDERABLES Final Re sult Performing Organization Address [facility] Phone Number INTERFACE SYSTEM Refer to [...] mmol/L INTERFACE SYSTEM 02/25/2006 4:36 AM CDT [facility] Zaid CHEMISTRY ORDERABLES Final Res ult Performing Organization Address [facility] Phone Number INTERFACE SYSTEM Refer to clinic/hospital department * C-REACTIVE PROTEIN (02/25/2006 4:36 AM CDT) CRP 0.2 0.0 - 0.8 mg/dL INTERFACE SYSTEM 02/25/2006 4:36 AM CDT [facility] CHEMISTRY ORDERABLES Final Res ult Performing Organization Address [facility] Phone Number INTERFACE SYSTEM Refer to [...] URINE ORDERABLES Final Result Performing Organization Address [facility] Phone Number INTERFACE SYSTEM Refer to [...] ORDERABLES Final Result Performing Organization Address [facility] Phone Number INTERFACE SYSTEM Refer [...] ORDERABLES Final Result Performing Organization Address [facility] Phone Number INTERFACE SYSTEM Refer to [...] INTERFACE SYSTEM 02/11/2006 6:20 PM CDT Sushil Arrooy MD URINE ORDERABLES Final Resul t Performing Organization Address [facility] Phone Number INTERFACE SYSTEM Refer to [...] HEMATOLOGY ORDERABLES Final Result Performing Organization Address City/[facility] Phone Number INTERFACE SYSTEM Refer to [...] ORDERABLES Final Result Performing Organization Address [facility] de Phone Number INTERFACE SYSTEM [...] Final Resul t Performing Organization Address [facility] de Phone Number INTERFACE SYSTEM [...] Final Res ult Performing Organization Address [facility] Phone Number INTERFACE SYSTEM Refer [...] Final Res ult Performing Organization Address [facility] Phone Number INTERFACE SYSTEM Refer to [...] ORDERABLES Final Result Performing Organization Address [facility] de Phone Number INTERFACE SYSTEM [...] Final Res ult Performing Organization Address [facility] Co de Phone Number INTERFACE SYSTEM [...] ORDERABLES Final Res ult Performing Organization Address City/[facility] Co de Phone Number INTERFACE SYSTEM [...] HEMATOLOGY ORDERABLES Final Result Performing Organization Address City/[facility]/ZIP Co de Phone Number INTERFACE SYSTEM Refer [...] INTERFACE SYSTEM 02/04/2006 2:48 PM CDT Sushil rAroyo MD URINE ORDERABLES Final Resul t Performing Organization Address [facility] Phone Number INTERFACE SYSTEM Refer to [...] ORDERABLES Final Result Performing Organization Address [facility] Phone Number INTERFACE SYSTEM Refer to [...] ORDERABLES Final Result Performing Organization Address [facility] de Phone Number INTERFACE SYSTEM [...] ORDERABLES Final R esult Performing Organization Address City/[facility]/ZIP Co de Phone Number INTERFACE SYSTEM Refer [...] ORDERABLES Final Result Performing Organization Address City/State/[facility] Co de Phone Number INTERFACE SYSTEM [...] ORDERABLES Final Resu lt Performing Organization Address City/[facility] de Phone Number INTERFACE SYSTEM [...] Final Res ult Performing Organization Address [facility] de Phone Number INTERFACE SYSTEM [...] Final Res ult Performing Organization Address [facility] de Phone Number INTERFACE SYSTEM [...] Final Res ult Performing Organization Address [facility] Phone Number INTERFACE SYSTEM Refer to [...] ORDERABLES Final Res t Performing Organization Address [facility] Phone Number INTERFACE SYSTEM Refer to [...] been established. 01/28/2006 4:52 AM CDT Result [facility] Keenan Mandujano MD HEMATOLOGY ORDERABLES Final [facility] Performing Organization Address [facility] Phone Number INTERFACE SYSTEM Refer to [...] Final Res ult Performing Organization Address [facility] Phone Number INTERFACE SYSTEM Refer to [...] Final Res ult Performing Organization Address [facility] Phone Number INTERFACE SYSTEM Refer to [...] Final Res ult Performing Organization Address [facility] Phone Number INTERFACE SYSTEM Refer [...] been established. 01/23/2006 4:57 AM CDT Result [facility] Keenan Mandujano MD HEMATOLOGY ORDERABLES Final Res ult Performing Organization Address [facility] Phone Number INTERFACE SYSTEM Refer to [...] Final Res ult Performing Organization Address [facility] Phone Number INTERFACE SYSTEM Refer to [...] Final Resu lt Performing Organization Address [facility] Phone Number INTERFACE SYSTEM Refer to [...] Final Res ult Performing Organization Address [facility] Phone Number INTERFACE SYSTEM Refer to [...] Final Resu lt Performing Organization Address [facility] Phone Number INTERFACE SYSTEM Refer to [...] ORDERABLES Final Resu lt Performing Organization Address City/[facility] Co de Phone Number INTERFACE SYSTEM [...] HEMATOLOGY ORDERABLES Final Result Performing Organization Address City/[facility] Co de Phone Number INTERFACE SYSTEM [...] ORDERABLES Final R esult Performing Organization Address City/[facility] Co de Phone Number INTERFACE SYSTEM [...] ORDERABLES Final Resul t Performing Organization Address City/[facility]/ZIP Co de Phone Number INTERFACE SYSTEM Refer to clinic/hospital department documented in this encounter Visit Diagnoses Diagnosis Other specified rehabilitation procedure(V57.89)- Primary Other specified rehabilitation procedure documented in this encounter
--- OUTSIDE RECORDS SUMMARY | 2025-04-23 01:47 | XMS_ITS | Encounter Summary ---
Author Organization [employer] Address [address] [place] [address] Care Team Providers Care National Sales Manager Name Role Phone Unavailable Primary Care Provider Unavailabl e Encounter Details Date Type Department Care Team (Late st Contact Info) Description 01/13/2006 Outpatient Historical [facility] ([facility]) [address] 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
--- OUTSIDE RECORDS SUMMARY | 2025-04-23 01:47 | XMS_ITS | Clinical Summary ---
Author Organization [facility] Address [address] [place] [address] Care Team Providers Care Validation Technician Name Role Phone Rod Strauss MD Primary Care Provider [phone] Source Comments [facility],non-owned Affiliates and Associated Physician Practices is amultiple site organization consisting of ambulatory clinics and hospital sitesin [place], [place], [place] and [place]. This disclosure is being madepursuant to the Care Everywhere program and may not contain all information available regarding this patient. 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 [address] [place] [id number] Unknown, Provider from Last 3 Months Social [...] medical care, and heating? Patient declined 05/31/2024 [facility] - Occupational [...] any time in the past 12 m [facility], were you homeless or living in a long term (including now)? 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 Gender Identity Not on file Sexual Orientation Not on file Last Filed Vital Signs Vital Sign Reading Time Taken Comments Blood Pressure 135/77 06/15/2024 11:48 AM SHOTGUN SHELL REPRINTING UNIT OPERATOR Pulse 74 06/15/2024 11:48 AM SHOTGUN SHELL REPRINTING UNIT OPERATOR Temperature 36.4 C (97.6 F) 06/15/2024 8:35 AM SHOTGUN SHELL REPRINTING UNIT OPERATOR Respiratory Rate 16 06/15/2024 11:48 AM SHOTGUN SHELL REPRINTING UNIT OPERATOR Oxygen Saturation 97% 06/15/2024 11:48 AM SHOTGUN SHELL REPRINTING UNIT OPERATOR Inhaled Oxygen Concentration 40% 06/04/2024 9 :43 AM SHOTGUN SHELL REPRINTING UNIT OPERATOR Weight 88.5 kg (195 lb) 06/15/2024 8:35 AM SHOTGUN SHELL REPRINTING UNIT OPERATOR Height 190.5 cm (6' 3) 06/15/2024 8:35 AM SHOTGUN SHELL REPRINTING UNIT OPERATOR Body Mass Index 24.37 06/15/2024 8:35 AM SHOTGUN SHELL REPRINTING UNIT OPERATOR Plan of Treatment Upcoming Encounters Date Type Department Care Team (Late st Contact Info) Description 05/14/2025 9:00 AM SHOTGUN SHELL REPRINTING UNIT OPERATOR Office Visit [facility] - Urology [address] [place] [address] Rustam Bernabe PA [address] [place] [address] Health Maintenance Due Date Last Done Comments MEDICARE AWV 12 MONTHS 1949 DTAP/TDAP/TD VACCINES (1 - Tdap) 1968 PNEUMOCOCCAL VACCINE 50+ (1 of 2 - PCV) 1968 ZOSTER VACCINE (1 of 2) 1999 Respiratory [...] this topic Medical Devices Implanted Type Area Profiling Machine Setup Operator Device Identifier Shelf Expiration Date Model / Serial / Lot Synchromed Iii Pump Implanted:Qty: 1 on 06/04/2024 by Deshawn Schultz MD at [facility] Left: Abdomen [employer] 08/18/2025 8667-40 / [id number] / Ascenda Implanted:Qty: 1 on 06/04/2024 by Deshawn Schultz MD at [facility] Left: Abdomen [employer] 12/14/2024 [id number] / / [id number] Procedures Procedure Name Priority Date/Time Associated Diagnosis Comments DIFFERENTIAL MANUAL STAT 03/13/2025 4 :40 PM CDT COMPREHENSIVE METABOLIC PANEL STAT 03/13/2025 4:40 PM CDT CBC W AUTO DIFFERENTIAL STAT 03/13/2025 4:40 PM CDT HEPATITIS C AB SCREEN RFLX NAAT QUANT STAT 06/06/2024 11:49 AM SHOTGUN SHELL REPRINTING UNIT OPERATOR from Last 3 Months or Most [...] - 1.00 x10E9/L 03/13/2025 6:26 PM CDT [facility] RBC Morphology NORMAL 03/13/2025 6:26 PM CDT [facility] Blood BLOOD SPECIMEN / Unknown 03/13/2025 4:40 PM CDT 03/13/2025 5:42 PM CDT us Provider Unknown LAB - HEMATOLOGY ORDERABLES Fin al Result [facility] [address] [place] [address] * (ABNORMAL) CBC WITH DIFFERENTIAL (03/13/2025 4:40 PM CDT) WBC 15.3(H) 4.0 - 10.7 x10E9/L 03/13/2025 6:26 PM CDT [facility] RBC Count 2.83(L) 4.30 - 5.80 x10E12/L 03/13/2025 6:26 PM CDT [facility] Hemoglobin 7.9(L) 13.3 - 17.5 g/dL 03/13/2025 6:26 PM CDT [facility] Hematocrit 25.5(L) 38.7 - 51.1 % 03/13/2025 6:26 PM T [facility] MCV 90.1 80.0 - 98.0 fL 03/13/2025 6:26 PM CDT [facility] MCH 27.9 26.7 - 33.6 pg 03/13/2025 6:26 PM CDT [facility] MCHC 31.0(L) 31.7 - 36.3 g/dL 03/13/2025 6:26 PM CDT [facility] RDW-CV 15.7(H) 11.3 - 14.8 % 03/13/2025 6:26 PM CDT [facility] Platelet Count 266 150 - 420 x10E9/L 03/13/2025 6:26 PM CDT [facility] MPV 10.8 7.8 - 11.4 fL 03/13/2025 6:26 PM CDT [facility] Blood BLOOD SPECIMEN / Unknown 03/13/2025 4:40 PM CDT 03/13/2025 5:42 PM CDT us Provider Unknown LAB - HEMATOLOGY ORDERABLES Fin al Result [facility] [address] [place] [address] * (ABNORMAL) COMPREHENSIVE METABOLIC PANEL (03/13/2025 4:40 PM CDT) [facility] Glucose 118(H) 70 - 99 mg/dL 03/13/2025 6:07 PM CDT [facility] Sodium 135(L) 136 - 145 mmol/L 03/13/2025 6:07 PM CDT [facility] Potassium 3.6 3.5 - 5.1 mmol/L 03/13/2025 6:07 PM [facility] Chloride 98 98 - 107 mmol/L 03/13/2025 6:07 PM [facility] CO2 27 22 - 29 mmol/L 03/13/2025 6:07 PM [facility] Calcium 7.7(L) 8.4 - 10.4 mg/dL 03/13/2025 6:07 PM [facility] Anion Gap 10 6 - 16 mmol/L 03/13/2025 6:07 PM CDT [facility] BUN 23 7 - 26 mg/dL 03/13/2025 6:07 PM CDT [facility] Creatinine 0.74 0.72 - 1.25 mg/dL 03/13/2025 6:07 PM [facility] Alkaline Phosphatase 94 40 - 150 U/L 03/13/2025 6:07 PM [facility] ALT 31 6 - 57 U/L 03/13/2025 6:07 PM [facility] AST 39 10 - 48 U/L 03/13/2025 6:07 PM [facility] Protein Total 5.6(L) 6.4 - 8.3 gm/dL 03/13/2025 6:07 PM [facility] Albumin 2.5(L) 3.1 - 4.5 gm/dL 03/13/2025 6:07 PM [facility] Bilirubin Total 0.5 0.2 - 1.2 mg/dL 03/13/2025 6:07 PM CDT [facility] eGFR by CKD-EPI >90 >=90 mL/min/1.7 3 m2 03/13/2025 6:07 PM CDT [facility] Comment:Estimated Glomerular Filtration Rate (eGFR) calculated using the CKD-EPI Creatinine Equation (2020), per the National Kidney Foundation and [place] [employer]ph[employer] recommendations. Blood BLOOD SPECIMEN / Unknown Venipuncture / Unknown 03/13/2025 4:40 PM CDT 03/13/2025 5:42 PM CDT Provider Unknown LAB - CHEMISTRY ORDERABLES Johanne l Result Performing Organization Address City/[facility]/ZIP Co de Phone Number [facility] [address] [place] [address] * HEPATITIS C AB SCREEN RFLX NAAT QUANT (06/06/2024 11:49 AM SHOTGUN SHELL REPRINTING UNIT OPERATOR) Hepatitis C Antibody Non-react lottie Non-reac tive 06/06/2024 1:01 PM SHOTGUN SHELL REPRINTING UNIT OPERATOR [facility] Comment:Hepatitis C Antibody screen indicates no serologic evidence of past or current infection with Hepatitis C Virus. Patients with unexplained liver disease who are immunocompromised or suspected of having acute Hepatitis C infection may benefit from Nucleic Acid Test (NEIDA) for Hepatitis C Viral RNA to confirm Hepatitis C status. Blood BLOOD SPECIMEN / Unknown Lab Venipuncture / Unknown 06/06/2024 11:49 AM SHOTGUN SHELL REPRINTING UNIT OPERATOR 06/06/2024 12:05 PM SHOTGUN SHELL REPRINTING UNIT OPERATOR Salena Griffin TRIM AND BURR OPERATOR-MASS COMMUNICATIONS INSTRUCTOR LAB - CHEMISTRY ORDERABLES F inal Result [facility] [address] [place] [id number] [phone] from Last 3 Months or Most Recently Relevant to Health Maintenance Additional Health Concerns Infection Onset Date Last Indicated ESBL GNR 06/01/2024 06/01/2024 Insurance [facility] [place] [address] MEDICARE Advance Directives * Full Code (Latest Code Status on File) Date Activated Date Inactivated Comments 05/31/2024 11:27 PM 06/09/2024 8:37 PM Care Teams Validation Technician Relationship Specialty Start Date End Date Rod Strauss MD [address] [place] [id number] PCP - General Internal Medicine 06/15/24
--- OUTSIDE RECORDS SUMMARY | 2025-04-23 01:47 | XMS_ITS | Encounter Summary ---
Author Organization [facility] Address [address] [place] [address] Care Team Providers Care Deputy Director Of Public Works Name Role Phone Unavailable Primary Care Provider Unavailabl e Encounter Details Date Type Department Care Team (Late st Contact Info) Description 03/10/[address] [facility] [address] [address] Rita Esqueda MD 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
--- OUTSIDE RECORDS SUMMARY | 2025-04-23 01:47 | XMS_ITS | Clinical Summary ---
Author Organization [facility] Address [address] [place] [address] Phone Care Team Providers Care Photographic Engineer Name Role Phone JATIN STEPHEN, LUAN Carvajal [phone] Reason for Visit and Chief Complaint The Chief Complaint is: F/U BATTERY REPLACEMENT DONE ON 08-13-23 HAVING BURING HE HAS 40% RELIEF AND CAN TOLERATE IT. MAY NEED ADJUSTMENT AND NEED TO TALK TO [employer] Problems Includes: Problems addressed during this encounter and other active Problems Current Visit Onset Date Resolved Date Provider Conditio n Status Anemia 07/15/2023 LUAN STEINER MD Active Last Documented On 4 3:17PM ; [facility] Essential Hypertension 07/15/2023 LUAN NATH MD Active Last Documented On 4 3:20PM ; [facility] Past Visits Onset Date Resolved Date Provider Condition Status Cerebral Infarction 07/15/2023 LUAN Arriaga Active Last Documented On 4 3:19PM ; [facility] Cervicalgia 07/15/2023 LUAN STEINER MD Active Last Documented On 4 3:16PM ; [facility] Constipation 07/15/2023 LUAN STEINER MD Activ e Last Documented On 4 3:17PM ; [facility] Hyperlipidemia 07/15/2023 LUAN STEINER MD Act lottie Last Documented On 4 3:18PM ; [facility] Major Depression 07/15/2023 LUAN STENIER MD A ctive Last Documented On 4 3:17PM ; [facility] Neuromuscular Dysfunction of Bladder 07/15/2023 LUAN STEINER MD Active Last Documented On 4 3:17PM ; [facility] Neurogenic Bowel 07/15/2023 LUAN STEINER MD A ctive Last Documented On 4 3:18PM ; [facility] Quadriplegia 07/15/2023 LUAN STEINER MD Activ e Last Documented On 4 3:16PM ; [facility] Risk: Gastro-esophageal Reflux 07/15/2023 WILLI HAILEY STEINER MD Active Last Documented On 4 3:20PM ; [facility] Urethra Catheter in Place 07/15/2023 LUAN STEINER MD Active Last Documented On 4 3:14PM ; [facility] Urinary Tract Infection 07/15/2023 LUAN GLEASON OM, MD Active Last Documented On 4 3:18PM ; [facility] Plan of Treatment Patient will continue current care plan with his long-term care providers. He will avoid soaking the incision site for additional week. He will keep the site covered to protect the wound edges from his clothing for the next one to 2 weeks until nearly fully healed. Can legally dare at that time. He will call his initial concerns. Patient will meet with [employer] used equipment sales representative to optimize programming. He will be dismissed from the clinic at this time until such time as he may need additional attention paid to his implantable device therapy. - Last Documented On 08/25/2023 9:05AM ; [facility] Pending Tests Order Diagnosis Results Due Ordering Provider Pain Management CPT Neurostimulator lead and generator, implantable [facility] compl of implnt elec nstim, generator, init 08/14/23 LUAN STEINER MD Last Documented On 4 2:29PM ; [facility] Pain Management CPT Permanent Spinal Cor d Stimulator Insert/Replace [facility] compl of implnt elec nstim, generator, init 08/14/23 LUAN STEINER MD Last Documented On 4 2:29PM ; [facility] Outside Procedures - Cardiology EKG Essential (primary) hypertension 08/14/23 LUAN STEINER MD Last Documented On 4 1:55PM ; [facility] Assessments Includes: Assessments from this encounter Findings - [I10 - Essential (primary) hypertension] Essential hypertension - Last Documented On 08/25/2023 9:05AM ; [facility] - [M62.49 - Contracture of muscle, multiple sites] Muscle contracture of multiple sites - Last Documented On 08/25/2023 9:05AM ; [facility] - [M46.1 - Sacroiliitis, not elsewhere classified] Right sacroiliitis - Last Documented On 08/25/2023 9:05AM ; [facility] - [M54.6 - Pain in thoracic spine] Pain in thoracic spine - Last Documented On 08/25/2023 9:05AM ; [facility] - [R25.2 - Cramp and spasm] Spasms - Last Documented On 08/25/2023 9:05AM ; [facility] - [S14.156S - Other incomplete lesion at C6 level of cervical spinal cord, sequela] Spinal cord injury at the C5-C7 level with incomplete lesion of the cord - Last Documented On 08/25/2023 9:05AM ; [facility] - [G89.29 - Other chronic pain] Chronic pain - Last Documented On 08/25/2023 9:05AM ; [facility] - [T85.193A - Other mechanical complication of implanted electronic neurostimulator, generator, initial encounter] Mechanical complication of implanted electronic neurostimulator generator - Last Documented On 08/25/2023 9:05AM ; [facility] - [D50.9 - Iron deficiency anemia, unspecified] Anemia - Last Documented On 08/25/2023 9:05AM ; [facility] Medical Equipment - Implanted Devices Includes: Current Devices No Medical Equipment Recorded Medications Includes: Medications discussed during this encounter and other current Medications Current Medications (continue as prescribed) hydrALAZINE HCl 50 MG Oral Tablet 07/15/2023 Provide r: Diagnosis: q 8 hrs prn Last Documented On 07/15/2023 2:59PM By Brooke Brown RN ; [facility] Acidophilus Probiotic Oral Capsule 07/15/2023 Provid er: Diagnosis: Daily Last Documented On 07/15/2023 2:59PM By Brooke Brown RN ; [facility] amLODIPine Besylate 10 MG Oral Tablet 07/15/2023 Pro vider: Diagnosis: Daily Last Documented On 07/15/2023 3:00PM By Brooke Brown RN ; [facility] Ascorbic Acid 500 MG Oral Tablet 07/15/2023 Provider : Diagnosis: Daily Last Documented On 07/15/2023 3:00PM By Brooke Brown RN ; [facility] Aspirin 81 MG Oral Tablet Chewable 07/15/2023 Provid er: Diagnosis: Daily Last Documented On 07/15/2023 3:02PM By Brooke Brown RN ; [facility] Atorvastatin Calcium 80 MG Oral Tablet 07/15/2023 Pr ovider: Diagnosis: Daily Last Documented On 07/15/2023 3:03PM By Brooke Brown RN ; [facility] Baclofen 5 MG Oral Tablet 07/15/2023 Provider: Diagnosis: Daily TID Last Documented On 07/15/2023 3:03PM By Brooke Brown RN ; [facility] Bisacodyl 5 MG Oral Tablet Delayed Release 07/15/2023 Provider: Diagnosis: PRN Last Documented On 07/15/2023 3:03PM By Brooke Brown RN ; [facility] Claritin 10 MG Oral Tablet 07/15/2023 Provider: Diagnosis: Daily Last Documented On 07/15/2023 3:04PM By Brooke Brown RN ; [facility] Cranberry 450 MG Oral Capsule 07/15/2023 Provider: Diagnosis: BID Last Documented On 07/15/2023 3:04PM By Brooke Brown RN ; [facility] Ferrous Sulfate 325 (65 Fe) MG Oral Tablet Delayed Rel ease 07/15/2023 Provider: Diagnosis: Daily Last Documented On 07/15/2023 3:05PM By Brooke Brown RN ; [facility] Fleet Bisacodyl 10 MG/30ML Rectal Enema 07/15/2023 P rovider: Diagnosis: once a day prn Last Documented On 07/15/2023 3:05PM By Brooke Brown RN ; [facility] B Icvycby-Q-Ffbps Acid Oral Tablet 07/15/2023 Provid er: Diagnosis: daily 1 mg Last Documented On 07/15/2023 3:06PM By Brooke Brown RN ; [facility] HM Lidocaine Patch 4% External 07/15/2023 Provider: Diagnosis: 5% 2 patches q 12 hrs Last Documented On 07/15/2023 3:07PM By Brooke Brown RN ; [facility] Mineral Oil Oral 07/15/2023 Provider: Diagnosis: TID prn Last Documented On 07/15/2023 3:08PM By Brooke Brown RN ; [facility] Myrbetriq 25 MG Oral Tablet Extended Release 24 Hour 0 07/15/2023 Provider: Diagnosis: Daily Last Documented On 07/15/2023 3:08PM By Brooke Brwon RN ; [facility] Simethicone 80 MG Oral Tablet Chewable 07/15/2023 Pr ovider: Diagnosis: BID Last Documented On 07/15/2023 3:09PM By Brooke Brown RN ; [facility] Daily Value Multivitamin Oral Tablet 07/15/2023 Prov ider: Diagnosis: daily Last Documented On 07/15/2023 3:09PM By Brooke Brown RN ; [facility] Metamucil 28% Oral Packet 07/15/2023 Provider: Diagnosis: BID Last Documented On 07/15/2023 3:10PM By Brooke Brown RN ; [facility] Metoprolol Tartrate 25 MG Oral Tablet 07/15/2023 Pro vider: Diagnosis: BID Last Documented On 07/15/2023 3:11PM By Brooke Brown RN ; [facility] Protonix 40 MG Oral Tablet Delayed Release 07/15/2023 Provider: Diagnosis: BID Last Documented On 07/15/2023 3:11PM By Brooke Brown RN ; [facility] Prinivil 10 MG Oral Tablet 07/15/2023 Provider: Diagnosis: 2 tabs once a day Last Documented On 07/15/2023 3:12PM By Brooke Brown RN ; [facility] Anusol-HC 2.5% External Cream 07/15/2023 Provider: Diagnosis: prn Last Documented On 07/15/2023 3:12PM By Brooke Brown RN ; [facility] Naloxone HCl 4 MG/0.1ML Nasal Liquid 07/15/2023 Prov ider: Diagnosis: prn Last Documented On 07/15/2023 3:12PM By Brooke Brown RN ; [facility] Lyrica 100 MG Oral Capsule 07/15/2023 Provider: Diagnosis: BID Last Documented On 07/15/2023 3:27PM By Brooke Brown RN ; [facility] Medications Administered Includes: Administered Medications from this encounter No Administered Medications Recorded Vital Signs Includes: Vital Signs from this encounter Vital Name 08/25/2023 08:40A Blood Pressure Sitting R 120/62 BP Cuff Size Regular Pulse Rate-Sitting (bpm) 63 Pulse Rhythm Regular Temp-Oral (F) 97.9 Height (in) 75 Weight (lb) 197 Body Mass Index 24.6 Body Surface Area 2.2 Pain Level 6 Oxygen Saturation (%) 97 Last Documented: On 08/25/2023 8:44AM ; [facility] Results Includes: Results discussed during this encounter [...] to both sides - No vertigo Discussion:Patient returns in follow-up just over one week after undergoing peripheral nerve stimulator battery replacement ([employer]) with incision/pocket site in the right lower quadrant of the abdomen. Generator is working well. With current settings he is getting about 40% relief which is consistent with his prior settings. He believes this is beneficial although he would like to optimize programming if possible. Will arrange reprogramming session with [employer] closer to home. However he is healing well with no signs of infection. Denies fevers, chills, night sweats nausea/vomiting, diarrhea or new neurologic change. Encourage the patient to keep the wound covered change at the time of showers. I would have him avoid soaking the region for another week. After 2 to 3 weeks is healing well he can leave the uncovered. Patient will follow-up on an as-needed basis should you have any need to have the stimulator evaluated. He has contact [employer] the need to have it adjusted. Otherwise we will remand his care back to his current medical providers. Risks, benefits and alternatives to the treatment strategy was discussed in detail the patient who expressed explicit understanding and consent to proceed. Questions were elicited, asked and answered the best of our ability and to his satisfaction today. [place] prescription monitoring database was reviewed and found to be appropriate INITIAL VISIT (07/15/23): Patient is a pleasant 73-year-old male who has [...] years ago by a physician in the [facility]. Patient is not recall who. 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 He also undergone [...] to get his preoperative screening EKG at [facility] as he does not have time to do this today. Risks, benefits and alternatives the above treatment options were discussed in detail the patient who expressed explicit understanding and consent to proceed. Questions were elicited, asked and answered the best of our ability to his satisfaction today. [place] prescription monitoring database was reviewed and found to be appropriate. Imaging: All relevant imaging available was personally reviewed with the patient today with the following tests and results noted: [None available. Will obtain reports, patient will provide images at follow up.] Social History Description Last Updated Tobacco non-user 07/15/2023 Last Documented On 4 8:31AM ; [facility] No consumption of alcohol 07/15/2023 Last Documented On 4 8:31AM ; [facility] Not using drugs 07/15/2023 Last Documented On 4 8:31AM ; [facility] No recent change in sleep 07/15/2023 Last Documented On 4 8:31AM ; [facility] Smoking Status Unknown Procedures and Surgical History Includes: Procedures from this encounter Procedures Code Diagnosis Performing Provider Service L ocation Service Date a standard wheelchair Last Documented On 4 8:32AM ; [facility] use of tobacco assessment performed 1000F Last Documented On 4 8:32AM ; [facility] standardized depression screening: negative for symptoms 3351F Last Documented On 4 8:32AM ; [facility] review of medications documented 1160F Last Documented On 4 8:32AM ; [facility] screening for adult depression: impressi on and score 0 Last Documented On 4 8:32AM ; [facility] Pain radiates to the right side of butto cks Last Documented On 4 8:32AM ; [facility] Clinical summary provided to patient Last Documented On 4 8:32AM ; [facility] SOAPP-R: total score 1 Last Documented On 4 8:32AM ; [facility] Surgical History Last Updated Pacemaker 07/15/2023 Last Documented On 4 8:31AM ; [facility] Medical History Includes: Medical History addressed during this encounter Description Last Updated Denies a fear of falling. 07/15/2023 Last Documented On 4 8:31AM ; [facility] Has had no fall in the last 12 months. 0 07/15/2023 Last Documented On 4 8:31AM ; [facility] Currently wearing eyeglasses 07/15/2023 Last Documented On 4 8:31AM ; [facility] Moderate to severe pain 07/15/2023 Last Documented On 4 8:31AM ; [facility] No Spinal cord stimulator 07/15/2023 Last Documented On 4 8:31AM ; [facility] Pain Pump 07/15/2023 Last Documented On 4 8:31AM ; [facility] Please list all illnesses/co nditions you have been diagnosed with: Paralyzed 07/15/2023 Last Documented On 4 8:31AM ; [facility] Please list all surgeries: Pain pump 201 4stimuliers are in back 2015 07/15/2023 Last Documented On 4 8:31AM ; [facility] Treatment with TENS unit 07/15/2023 Last Documented On 4 8:31AM ; [facility] Which brand of pacemaker/defibrillator d o you have? Implants 07/15/2023 Last Documented On 4 8:31AM ; [facility] Blood pressure was high 07/15/2023 Last Documented On 4 8:31AM ; [facility] Hypertension 07/15/2023 Last Documented On 4 8:31AM ; [facility] No exposure to a contagious disease 07/05 Last Documented On 4 8:31AM ; [facility] No previous psychiatric treatment 2023 Last Documented On 4 8:31AM ; [facility] Not taking OTC medications 07/15/2023 Last Documented On 4 8:31AM ; [facility] Taking medication for high blood pressur e 07/15/2023 Last Documented On 4 8:31AM ; [facility] Family History Includes: Family History addressed during this encounter Description Last Updated Family history of Arthritis 07/15/2023 Last Documented On 4 8:31AM ; [facility] Maternal history of Arthritis 07/15/2023 Last Documented On 4 8:31AM ; [facility] Review of Systems Includes: Review of Systems [...] ve Last Documented On 4 8:38AM ; [facility] Effexor XR Allergy 07/15/2023 Active Last Documented On 4 8:38AM ; [facility] Bactrim Allergy 07/15/2023 Active Last Documented On 4 8:38AM ; [facility] Encounters Encounter Provider Location Date Check-In Time Check-Out Time Diagnosis PAIN MANAGEMENT FOLLOW UP LUAN STEINER MD [facility] 024 8:31AM 9:07AM Anemia,Essential Hypertension,Spina l Cord Injury At the C5-c7 Level with Incomplete Lesion,Spasms,Tube Bender Hand catrina Pain,Muscle Contracture Multiple Sites,Sacroiliitis Right,Dorsopathy Dorsalgia [facility] Im[facility]ed Electronic Neurostimulator Generator Insurance Includes: Active Insurance Policies Plan Name Member ID Group # Subscriber Relationship Effect lottie Dates 1 - [place] [employer] [id number] JEROME ASKEW [place] 2 - [facility] [id number] JEROME ASKEW [place] Clinical Notes Includes: Clinical Notes from this encounter * Progress note Date Encounter Last Documented by 08/25/2023 PAIN MANAGEMENT FOLLOW UP Last d ocumented on 08/25/2023; 9:05 AM, LUAN STEINER MD; [facility] Active Problems & Conditions - Anemia - Cerebral Infarction - Cervicalgia - Constipation - Essential Hypertension - Hyperlipidemia - Major Depression - Neurogenic Bowel - Neuromuscular Dysfunction of Bladder - Quadriplegia - Risk: Gastro-esophageal Reflux - Urethra Catheter in Place - Urinary Tract Infection Chief Complaint The Chief Complaint is: F/U BATTERY REPLACEMENT DONE ON 08-13-23 HAVING BURING HE HAS 40% RELIEF AND CAN TOLERATE IT. MAY NEED ADJUSTMENT AND NEED TO TALK TO [employer]. History of Present Illness PHQ-9 Score: 0 [...] to both sides - No vertigo Discussion:Patient returns in follow-up just over one week after undergoing peripheral nerve stimulator battery replacement ([employer]) with incision/pocket site in the right lower quadrant of the abdomen. Generator is working well. With current settings he is getting about 40% relief which is consistent with his prior settings. He believes this is beneficial although he would like to optimize programming if possible. Will arrange reprogramming session with [employer] closer to home. However he is healing well with no signs of infection. Denies fevers, chills, night sweats nausea/vomiting, diarrhea or new neurologic change. Encourage the patient to keep the wound covered change at the time of showers. I would have him avoid soaking the region for another week. After 2 to 3 weeks is healing well he can leave the uncovered. Patient will follow-up on an as-needed basis should you have any need to have the stimulator evaluated. He has contact [employer] the need to have it adjusted. Otherwise we will remand his care back to his current medical providers. Risks, benefits and alternatives to the treatment strategy was discussed in detail the patient who expressed explicit understanding and consent to proceed. Questions were elicited, asked and answered the best of our ability and to his satisfaction today. [place] prescription monitoring database was reviewed and found to be appropriate INITIAL VISIT (07/15/23): Patient is a pleasant 73-year-old male who has [...] years ago by a physician in the [place] region. Patient is not recall who. 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 He also undergone [...] to get his preoperative screening EKG at [facility] as he does not have time to do this today. Risks, benefits and alternatives the above treatment options were discussed in detail the patient who expressed explicit understanding and consent to proceed. Questions were elicited, asked and answered the best of our ability to his satisfaction today. [place] prescription monitoring database was reviewed and found [...] Daily, 0 days, 0 refills - B Cptqjoy-C-Jaorm Acid Oral Tablet daily 1 mg, 0 [...] and Please list all surgeries: Pain pump 2014stimuliers are in back 2015. Medical: No previous psychiatric treatment. Currently wearing [...] than noted. Physical Findings - Vitals taken 08/25/2023 08:40 am BP-Sitting R 120/62 mmHg BP Cuff Size Regular Pulse Rate-Sitting 63 bpm Pulse Rhythm Regular Temp-Oral 97.9 F Height 75 in Weight 197 lbs Body Mass Index 24.6 kg/m2 Body Surface Area 2.2 m2 Pain Level 6 Oxygen Saturation 97 % Vital Signs: - Pain level by numeric rating scale 7. Musculoskeletal System: General/bilateral: Musculoskeletal Scales: Value Lumbar oswestry score 54 Psychiatric: Psychiatric: Value PHQ9 score: 0 HEENT: NC/AT. Anicteric. Clear [...] normal. No pain behaviors. Tests Educational Testing: Questionnaires PHQ-9: Value SOAPP-R: total score 1 Assessment - [I10 [...] provided to patient. - A standard wheelchair. Plan Patient will continue current care plan with his long-term care providers. He will avoid soaking the incision site for additional week. He will keep the site covered to protect the wound edges from his clothing for the next one to 2 weeks until nearly fully healed. Can legally dare at that time. He will call his initial concerns. Patient will meet with [employer] used equipment sales representative to optimize programming. He will be dismissed from the clinic at this time until such time as he may need additional attention paid to his implantable device therapy. Practice Management Use of tobacco assessment performed Review of medications documented; Standardized depression screening: negative for symptoms and for adult impression and score 0. A total of 26 minutes were spent on this patient's evaluation, as above, with greater than 50% of this time spent in direct [id number] counseling and coordination of care. Results of [...] but may be subject to typographical or adoption agent errors. Verify all diagnoses, medications, dosages, and patient instructions with patient and/or the originator of this document. Health Reminders - Assess Blood Pressure satisfied 08/25/2023. - Assess BMI satisfied 08/25/2023. - Assess Need for CT Lung Screen satisfied 08/25/2023. - Assess Tobacco Use satisfied 08/25/2023. - Depression Screening satisfied 08/25/2023. - Follow up plan for Depression Screening satisfied 08/25/2023.
--- OUTSIDE RECORDS SUMMARY | 2025-04-23 01:47 | XMS_ITS ---
Author Organization [facility] Address [address] [place] [address] Phone Care Team Providers Care Video Specialist Name Role Phone JATIN STEPHEN, LUAN Carvajal [phone] Problems Includes: Active, inactive, and resolved Problems All Visits Onset Date Resolved Date Provider Condition S tatus Anemia 07/15/2023 LUAN STEINER MD Active Last Documented On 4 3:17PM ; [facility] Cerebral Infarction 07/15/2023 LUAN Arriaga Active Last Documented On 4 3:19PM ; [facility] Cervicalgia 07/15/2023 LUAN STEINER MD Active Last Documented On 4 3:16PM ; [facility] Constipation 07/15/2023 LUAN STEINER MD Activ e Last Documented On 4 3:17PM ; [facility] Hyperlipidemia 07/15/2023 LUAN STEINER MD Act lottie Last Documented On 4 3:18PM ; [facility] Essential Hypertension 07/15/2023 LUAN NATH MD Active Last Documented On 4 3:20PM ; [facility] Major Depression 07/15/2023 LUAN STEINER MD A ctive Last Documented On 4 3:17PM ; [facility] Neuromuscular Dysfunction of Bladder 07/15/2023 LUAN STEINER MD Active Last Documented On 4 3:17PM ; [facility] Neurogenic Bowel 07/15/2023 LUAN STEINER MD A ctive Last Documented On 4 3:18PM ; [facility] Quadriplegia 07/15/2023 LUAN STEINER MD Activ e Last Documented On 4 3:16PM ; [facility] Risk: Gastro-esophageal Reflux 07/15/2023 DANNIELLE STEIENR MD Active Last Documented On 4 3:20PM ; [facility] Urethra Catheter in Place 07/15/2023 LUAN STEINER MD Active Last Documented On 4 3:14PM ; [facility] Urinary Tract Infection 07/15/2023 LUAN GLEASON OM, MD Active Last Documented On 4 3:18PM ; [facility] Plan of Treatment Pending Tests Order Diagnosis Results Due Ordering Provider Pain Management CPT Neurostimulator lead and generator, implantable [facility] compl of implnt elec nstim, generator, init 08/14/23 LUAN STEINER MD Last Documented On 4 2:29PM ; [facility] Pain Management CPT Permanent Spinal Cor d Stimulator Insert/Replace [facility] compl of implnt elec nstim, generator, init 08/14/23 LUAN STEINER MD Last Documented On 4 2:29PM ; [facility] Outside Procedures - Cardiology EKG Essential (primary) hypertension 08/14/23 LUAN STEINER MD Last Documented On 4 1:55PM ; [facility] Assessments Includes: Assessments for all patient encounters Findings Encounter Date Anemia PAIN MANAGEMENT FOLLOW UP with Sarah Beth STEINER MD 08/25/2023 Last Documented On 4 9:05AM ; [facility] Chronic pain PAIN MANAGEMENT FOLLOW UP with Sarah Beth STEINER MD 08/25/2023 Last Documented On 4 9:05AM ; [facility] Essential hypertension PAIN MANAGEMENT FOLLOW UP with LUAN STEINER MD 08/25/2023 Last Documented On 4 9:05AM ; [facility] Mechanical complication of i mplanted electronic neurostimulator generator PAIN MANAGEMENT FOLLOW UP with LUAN STEINER MD 08/25/2023 Last Documented On 4 9:05AM ; [facility] Muscle contracture of multiple sites WOJCIECH N MANAGEMENT FOLLOW UP with LUAN STEINER MD 08/25/2023 Last Documented On 4 9:05AM ; [facility] Pain in thoracic spine PAIN MANAGEMENT FOLLOW UP with LUAN STEINER MD 08/25/2023 Last Documented On 4 9:05AM ; [facility] Right sacroiliitis PAIN MANAGEMENT FOLLOW UP wit jill STEINER MD 08/25/2023 Last Documented On 4 9:05AM ; [facility] Spasms PAIN MANAGEMENT FOLLOW UP with Sarah Beth STEINER MD 08/25/2023 Last Documented On 4 9:05AM ; [facility] Spinal cord injury at the C5 -C7 level with incomplete lesion of the cord PAIN MANAGEMENT FOLLOW UP with LUAN STEINER MD 08/25/2023 Last Documented On 4 9:05AM ; [facility] Anemia PAIN MANAGEMENT NEW CONSULT with LUAN STEINER MD 07/15/2023 Last Documented On 4 5:41PM ; [facility] Chronic pain PAIN MANAGEMENT NEW CONSULT with LUAN STEINER MD 07/15/2023 Last Documented On 4 5:41PM ; [facility] Essential hypertension PAIN MANAGEMENT NEW CONSU LT with LUAN STEINER MD 07/15/2023 Last Documented On 4 5:41PM ; [facility] Mechanical complication of i mplanted electronic neurostimulator generator PAIN MANAGEMENT NEW CONSULT with LUAN STEINER MD 07/15/2023 Last Documented On 4 5:41PM ; [facility] Muscle contracture of multiple sites WOJCIECH N MANAGEMENT NEW CONSULT with LUAN STEINER MD 07/15/2023 Last Documented On 4 5:41PM ; [facility] Pain in thoracic spine PAIN MANAGEMENT NEW CONSU LT with LUAN STEINER MD 07/15/2023 Last Documented On 4 5:41PM ; [facility] Right sacroiliitis PAIN MANAGEMENT NEW CONSULT w germán STEINER MD 07/15/2023 Last Documented On 4 5:41PM ; [facility] Spasms PAIN MANAGEMENT NEW CONSULT with LUAN STEINER MD 07/15/2023 Last Documented On 4 5:41PM ; [facility] Spinal cord injury at the C5 -C7 level with incomplete lesion of the cord PAIN MANAGEMENT NEW CONSULT with LUAN STEINER MD 07/15/2023 Last Documented On 4 5:41PM ; [facility] Medical Equipment - Implanted Devices Includes: Current and historical Devices No Medical Equipment Recorded Medications Includes: Current and historical Medications Current Medications (continue as prescribed) hydrALAZINE HCl 50 MG Oral Tablet 07/15/2023 Provide r: Diagnosis: q 8 hrs prn Last Documented On 07/15/2023 2:59PM By Brooke Brown RN ; [facility] Acidophilus Probiotic Oral Capsule 07/15/2023 Provid er: Diagnosis: Daily Last Documented On 07/15/2023 2:59PM By Brooke Brown RN ; [facility] amLODIPine Besylate 10 MG Oral Tablet 07/15/2023 Pro vider: Diagnosis: Daily Last Documented On 07/15/2023 3:00PM By Brooke Brown RN ; [facility] Ascorbic Acid 500 MG Oral Tablet 07/15/2023 Provider : Diagnosis: Daily Last Documented On 07/15/2023 3:00PM By Brooke Brown RN ; [facility] Aspirin 81 MG Oral Tablet Chewable 07/15/2023 Provid er: Diagnosis: Daily Last Documented On 07/15/2023 3:02PM By Brooke Brown RN ; [facility] Atorvastatin Calcium 80 MG Oral Tablet 07/15/2023 Pr ovider: Diagnosis: Daily Last Documented On 07/15/2023 3:03PM By Brooke Brown RN ; [facility] Baclofen 5 MG Oral Tablet 07/15/2023 Provider: Diagnosis: Daily TID Last Documented On 07/15/2023 3:03PM By Brooke Brown RN ; [facility] Bisacodyl 5 MG Oral Tablet Delayed Release 07/15/2023 Provider: Diagnosis: PRN Last Documented On 07/15/2023 3:03PM By Brooke Brown RN ; [facility] Claritin 10 MG Oral Tablet 07/15/2023 Provider: Diagnosis: Daily Last Documented On 07/15/2023 3:04PM By Brooke Brown RN ; [facility] Cranberry 450 MG Oral Capsule 07/15/2023 Provider: Diagnosis: BID Last Documented On 07/15/2023 3:04PM By Brooke Brown RN ; [facility] Ferrous Sulfate 325 (65 Fe) MG Oral Tablet Delayed Rel ease 07/15/2023 Provider: Diagnosis: Daily Last Documented On 07/15/2023 3:05PM By Brooke Brown RN ; [facility] Fleet Bisacodyl 10 MG/30ML Rectal Enema 07/15/2023 P rovider: Diagnosis: once a day prn Last Documented On 07/15/2023 3:05PM By Brooke Brown RN ; [facility] B Rqfcixx-H-Dlzkt Acid Oral Tablet 07/15/2023 Provid er: Diagnosis: daily 1 mg Last Documented On 07/15/2023 3:06PM By Brooke Brown RN ; [facility] HM Lidocaine Patch 4% External 07/15/2023 Provider: Diagnosis: 5% 2 patches q 12 hrs Last Documented On 07/15/2023 3:07PM By Brooke Brown RN ; [facility] Mineral Oil Oral 07/15/2023 Provider: Diagnosis: TID prn Last Documented On 07/15/2023 3:08PM By Brooke Brown RN ; [facility] Myrbetriq 25 MG Oral Tablet Extended Release 24 Hour 0 07/15/2023 Provider: Diagnosis: Daily Last Documented On 07/15/2023 3:08PM By Brooke Brown RN ; [facility] Simethicone 80 MG Oral Tablet Chewable 07/15/2023 Pr ovider: Diagnosis: BID Last Documented On 07/15/2023 3:09PM By Brooke Brown RN ; [facility] Daily Value Multivitamin Oral Tablet 07/15/2023 Prov ider: Diagnosis: daily Last Documented On 07/15/2023 3:09PM By Brooke Brown RN ; [facility] Metamucil 28% Oral Packet 07/15/2023 Provider: Diagnosis: BID Last Documented On 07/15/2023 3:10PM By Brooke Brown RN ; [facility] Metoprolol Tartrate 25 MG Oral Tablet 07/15/2023 Pro vider: Diagnosis: BID Last Documented On 07/15/2023 3:11PM By Brooke Brown RN ; [facility] Protonix 40 MG Oral Tablet Delayed Release 07/15/2023 Provider: Diagnosis: BID Last Documented On 07/15/2023 3:11PM By Brooke Brown RN ; [facility] Prinivil 10 MG Oral Tablet 07/15/2023 Provider: Diagnosis: 2 tabs once a day Last Documented On 07/15/2023 3:12PM By Brooke Brown RN ; [facility] Anusol-HC 2.5% External Cream 07/15/2023 Provider: Diagnosis: prn Last Documented On 07/15/2023 3:12PM By Brooke Brown RN ; [facility] Naloxone HCl 4 MG/0.1ML Nasal Liquid 07/15/2023 Prov ider: Diagnosis: prn Last Documented On 07/15/2023 3:12PM By Brooke Brown RN ; [facility] Lyrica 100 MG Oral Capsule 07/15/2023 Provider: Diagnosis: BID Last Documented On 07/15/2023 3:27PM By Brooke Brown RN ; [facility] Medications Administered Includes: Administered Medications in patient's chart No Administered Medications Recorded Results Includes: Results from 04/23/2024 through 04/23/2025 No Results Recorded For Specified Dates History of Present Illness History of Present Illness not supported for this document type No History of Present Illness Recorded Social History Description Last Updated Tobacco non-user 07/15/2023 Last Documented On 4 5:41PM ; [facility] No consumption of alcohol 07/15/2023 Last Documented On 4 5:41PM ; [facility] Not using drugs 07/15/2023 Last Documented On 4 5:41PM ; [facility] No recent change in sleep 07/15/2023 Last Documented On 4 5:41PM ; [facility] Smoking Status Unknown Procedures and Surgical History Surgical History Last Updated Pacemaker 07/15/2023 Last Documented On 4 5:41PM ; [facility] Medical History Includes: Medical History in patient's chart Description Last Updated Denies a fear of falling. 07/15/2023 Last Documented On 4 5:41PM ; [facility] Has had no fall in the last 12 months. 0 07/15/2023 Last Documented On 4 5:41PM ; [facility] Currently wearing eyeglasses 07/15/2023 Last Documented On 4 5:41PM ; [facility] Moderate to severe pain 07/15/2023 Last Documented On 4 5:41PM ; [facility] No Spinal cord stimulator 07/15/2023 Last Documented On 4 5:41PM ; [facility] Pain Pump 07/15/2023 Last Documented On 4 5:41PM ; [facility] Please list all illnesses/co nditions you have been diagnosed with: Paralyzed 07/15/2023 Last Documented On 4 5:41PM ; [facility] Please list all surgeries: Pain pump 201 4stimuliers are in back 2015 07/15/2023 Last Documented On 4 5:41PM ; [facility] Treatment with TENS unit 07/15/2023 Last Documented On 4 5:41PM ; [facility] Which brand of pacemaker/defibrillator d o you have? Implants 07/15/2023 Last Documented On 4 5:41PM ; [facility] Blood pressure was high 07/15/2023 Last Documented On 4 5:41PM ; [facility] Hypertension 07/15/2023 Last Documented On 4 5:41PM ; [facility] No exposure to a contagious disease 07/05 Last Documented On 4 5:41PM ; [facility] No previous psychiatric treatment 2023 Last Documented On 4 5:41PM ; [facility] Not taking OTC medications 07/15/2023 Last Documented On 4 5:41PM ; [facility] Taking medication for high blood pressur e 07/15/2023 Last Documented On 4 5:41PM ; [facility] Family History Includes: Family History in patient's chart Description Last Updated Family history of Arthritis 07/15/2023 Last Documented On 4 5:41PM ; [facility] Maternal history of Arthritis 07/15/2023 Last Documented On 4 5:41PM ; [facility] Review of Systems Review of Systems not [...] ve Last Documented On 4 8:38AM ; [facility] Effexor XR Allergy 07/15/2023 Active Last Documented On 4 8:38AM ; [facility] Bactrim Allergy 07/15/2023 Active Last Documented On 4 8:38AM ; [facility] Insurance Includes: Active Insurance Policies Plan Name Member ID Group # Subscriber Relationship Effect lottie Dates 1 - [facility] [id number] JEROME Graves 2 - [facility] [id number] JEROME Graves Clinical Notes Includes: Signed Clinical Notes starting from 07/24/2022 No Clinical Notes Recorded
--- OUTSIDE RECORDS SUMMARY | 2025-04-23 01:47 | XMS_ITS | Encounter Summary ---
Author Organization [facility] Address [address] [place] [address] Care Team Providers Care Cut Off Sawyer Name Role Phone Unavailable Primary Care Provider Unavailabl e Encounter Details Date Type Department Care Team (Latest Contact Info) Description 03/19/2006 Inpatient Historical HIS [place] [address] [place] [address] Other Specified Rehabilitation Procedure (Primary Dx) Social History Tobacco Use Types Packs/Day Years Used Date Smoking Tobacco: Never Assessed Sex and Gender Information Value Date Recorded Sex Assigned at Not on file Legal Sex Male 3:46 AM [employer] Gender Identity Not on file Sexual Orientation [...] Final Re sult Performing Organization Address [facility] Phone Number INTERFACE SYSTEM Refer to clinic/hospital department * C-REACTIVE PROTEIN (04/05/2006 5:15 AM CDT) Pathologist [facility] CRP 0.2 0.0 - 0.8 mg/dL INTERFACE SYSTEM 04/05/2006 5:15 AM CDT [facility] CHEMISTRY ORDERABLES Final Res ult Performing Organization Address [facility] Phone Number INTERFACE SYSTEM Refer [...] ORDERABLES Final R esult Performing Organization Address [facility] Phone Number INTERFACE SYSTEM Refer to clinic/hospital [...] ORDERABLES Final Res ult Performing Organization Address [facility] Phone Number INTERFACE SYSTEM Refer to clinic/hospital [...] ORDERABLES Final Res ult Performing Organization Address [facility] Phone Number INTERFACE SYSTEM Refer to clinic/hospital department * C-REACTIVE PROTEIN (03/29/2006 5:15 AM CDT) CRP 0.3 0.0 - 0.8 mg/dL INTERFACE SYSTEM 03/29/2006 5:15 AM CDT us Keenan Mandujano MD CHEMISTRY ORDERABLES Final Resu lt Performing Organization Address [facility] Phone Number INTERFACE SYSTEM Refer to clinic/hospital [...] ORDERABLES Final Resu lt Performing Organization Address [facility] Phone Number INTERFACE SYSTEM Refer to clinic/hospital [...] ORDERABLES Final Re sult Performing Organization Address [facility] Phone Number INTERFACE SYSTEM Refer to clinic/hospital [...] INTERFACE SYSTEM 03/24/2006 12:1 0 PM CDT [employer] [facility] HEMATOLOGY ORDERABLES Final Re sult Performing Organization Address [facility] Phone Number INTERFACE SYSTEM Refer to clinic/hospital department * VANCOMYCIN LEVEL TROUGH (03/24/2006 12:10 PM CDT) VANCOMYCIN, TROUGH 11.3 5.0 - 15.0 ug/mL INTERFACE SYSTEM Comment: Vancomycin Trough Toxic Level= >15.0 ug/mL 03/24/2006 12:1 0 PM CDT [employer] [facility] CHEMISTRY ORDERABLES Final Res ult Performing Organization Address [facility] Phone Number INTERFACE SYSTEM Refer to clinic/hospital department * C-REACTIVE PROTEIN (03/24/2006 12:10 PM CDT) CRP 0.6 0.0 - 0.8 mg/dL INTERFACE SYSTEM 03/24/2006 12:1 0 PM CDT [employer] [facility] CHEMISTRY ORDERABLES Final Res ult Performing Organization Address [facility] Phone Number INTERFACE SYSTEM Refer to clinic/hospital [...] ORDERABLES Final Res ult Performing Organization Address [facility] Co de Phone Number INTERFACE [...] INTERFACE SYSTEM 03/23/2006 11:3 0 AM CDT [employer] [employer] [facility] HEMATOLOGY ORDERABLES Final Re sult Performing Organization Address [facility] de Phone Number INTERFACE SYSTEM [...] INTERFACE SYSTEM 03/23/2006 11:3 0 AM CDT [facility] HEMATOLOGY ORDERABLES Final Re sult Performing Organization Address [facility] Co de Phone Number INTERFACE SYSTEM Refer to clinic/hospital department * VANCOMYCIN LEVEL TROUGH (03/23/2006 11:30 AM CDT) VANCOMYCIN, TROUGH 6.2 5.0 - 15.0 ug/mL INTERFACE SYSTEM Comment: Vancomycin Trough Toxic Level= >15.0 ug/mL 03/23/2006 11:3 0 AM CDT [facility] CHEMISTRY ORDERABLES Final Res ult Performing Organization Address [facility] Phone Number INTERFACE SYSTEM Refer to clinic/hospital department * (ABNORMAL) C-REACTIVE PROTEIN (03/23/2006 11:30 AM CDT) CRP 1.0(H) 0.0 - 0.8 mg/dL INTERFACE SYSTEM 03/23/2006 11:3 0 AM CDT us [facility] CHEMISTRY ORDERABLES Final Res ult Performing Organization Address [facility] Phone Number INTERFACE SYSTEM Refer [...] INTERFACE SYSTEM 03/23/2006 11:3 0 AM CDT [facility] CHE[facility] ORDERABLES Final Res ult Performing Organization Address [facility] Phone Number INTERFACE SYSTEM Refer to clinic/hospital [...] ORDERABLES Final R esult Performing Organization Address [facility] Phone Number INTERFACE SYSTEM Refer to clinic/hospital [...] /HPF INTERFACE SYSTEM 03/22/2006 8:30 PM CDT [facility] URINE ORDERABLES Final Result Performing Organization Address [facility] Phone Number INTERFACE SYSTEM Refer to clinic/hospital [...] Sushil Arroyo MD CHEMISTRY ORDERABLES Final R critical access hospital Performing Organization Address [facility] de Phone Number INTERFACE SYSTEM [...] Sushil Arroyo MD CHEMISTRY ORDERABLES Final R critical access hospital Performing Organization Address [facility] de Phone Number INTERFACE SYSTEM [...] HEMATOLOGY ORDERABLES Final Result Performing Organization Address [facility] Phone Number INTERFACE SYSTEM Refer to clinic/hospital [...] HEMATOLOGY ORDERABLES Final Result Performing Organization Address [facility] Phone Number INTERFACE SYSTEM Refer to clinic/hospital [...] ORDERABLES Final R esult Performing Organization Address [facility] Phone Number INTERFACE SYSTEM Refer to clinic/hospital [...] ORDERABLES Final Resul t Performing Organization Address [facility] Phone Number INTERFACE SYSTEM Refer to clinic/hospital department documented in this encounter Visit Diagnoses Diagnosis Other specified rehabilitation procedure(V57.89)- Primary Other specified rehabilitation procedure documented in this encounter
--- OUTSIDE RECORDS SUMMARY | 2025-04-23 01:47 | XMS_ITS | Encounter Summary ---
Author Organization [facility] Address [address] [place] [address] Care Team Providers Care Covering Machine Operator Helper Name Role Phone Unavailable Primary Care Provider Unavailabl e Encounter Details Date Type Department Care Team (Late st Contact Info) Description 05/13/2019 Lab Requisition [facility] Laboratory Services [address] [place] [address] [facility], External Provider [address] [place] [address] Other fatigue Social History Tobacco Use Types Packs/Day Years Used Date Smoking Tobacco: Never Assessed Sex and Gender Information Value Date Recorded Sex Assigned at Not on file Legal Sex Male 3:46 AM SPECIAL TECHNICAL OPERATIONS OFFICER Gender Identity Not on file Sexual Orientation Not on file documented as of this encounter Plan of Treatment Not on file documented as of this encounter Procedures Procedure Name Priority Date/Time Associated Diagnosis Comments CBC WITH DIFFERENTIAL Stat 05/13/2019 4:50 PM SPECIAL TECHNICAL OPERATIONS OFFICER Other fatigue BASIC METABOLIC PANEL Stat 05/13/2019 4:50 PM SPECIAL TECHNICAL OPERATIONS OFFICER Other fatigue documented in this encounter Results * (ABNORMAL) CBC WITH DIFFERENTIAL (05/13/2019 4:50 PM SPECIAL TECHNICAL OPERATIONS OFFICER) [facility] WBC 6.1 4.5 - 10.5 K/uL 05/13/2019 9:52 PM SPECIAL TECHNICAL OPERATIONS OFFICER [facility] LABORATORY SERVICES [facility] RBC 4.04(L) 4.50 - 5.40 M/uL 05/13/2019 9:52 PM SPECIAL TECHNICAL OPERATIONS OFFICER [facility] LABOR[facility]ORY [facility] HEMOGLOBIN 12.1(L) 13.6 - 16.5 g/dL 05/13/2019 9:52 PM SPECIAL TECHNICAL OPERATIONS OFFICER [facility] HEMATOCRIT 37.1(L) 40.0 - 48.0 % 05/13/2019 9:52 PM [facility] LABORATORY [facility] MCV 91.7 82.0 - 99.0 fL 05/13/2019 9:52 PM [facility]OR[facility] MCH 30.0 27.8 - 34.5 pg 05/13/2019 9:52 PM [facility] MCHC 32.7 32.5 - 35.5 g/dL 05/13/2019 9:52 PM [facility] RDW 14.9(H) 11.5 - 14.5 % 05/13/2019 9:52 PM [facility]OR[facility] PLATELETS 162 160 - 420 K/uL 05/13/2019 9:52 PM [facility] Intelligent Mobile Support [facility] MPV 9.8 8.7 - 12.7 fL 05/13/2019 9:52 PM [facility]OR[facility] NEUTROPHILS 70 45 - 70 % 05/13/2019 9:52 PM [facility] LYMPHOCYTES 16 16 - 45 % 05/13/2019 9:52 PM [facility]OR[facility] MONOCYTES 10 3 - 13 % 05/13/2019 9:52 PM [facility] EOSINOPHILS 4 0 - 7 % 05/13/2019 9:52 PM [facility] BASOPHILS 1 0 - 2 % 05/13/2019 9:52 PM [facility] Intelligent Mobile Support [facility] NEUTROPHIL ABSOLUTE 4.20 1.90 - 7.00 K/uL 05/13/2019 9:52 PM [facility] Intelligent Mobile Support [facility] LYMPHOCYTE ABSOLUTE 0.90 K/uL 05/13/2019 9:52 PM [facility] MONOCYTE ABSOLUTE 0.60 K/uL 05/13/2019 9:52 PM [facility] EOSINOPHIL ABSOLUTE 0.30 0.00 - 0.70 K/uL 05/13/2019 9:52 PM [facility] BASOPHILS ABSOLUTE 0.00 K/uL 05/13/2019 9:52 PM [facility] Intelligent Mobile Support [facility] Blood BLOOD SPECIMEN / Unknown Collection / Unknown 05/13/2019 4:50 PM SPECIAL TECHNICAL OPERATIONS OFFICER 05/13/2019 9:42 PM SPECIAL TECHNICAL OPERATIONS OFFICER us External Provider [facility] HEMATOLOGY ORDERABLES Fin al Result [facility] Intelligent Mobile Support [facility] LESTER# [id number] [place] [address] * (ABNORMAL) BASIC METABOLIC PANEL (05/13/2019 4:50 PM SPECIAL TECHNICAL OPERATIONS OFFICER) SODIUM 143 136 - 145 mmol/L 05/13/2019 10:11 PM [facility] Intelligent Mobile Support [facility] POTASSIUM 4.2 3.4 - 5.1 mmol/L 05/13/2019 10:11 PM [facility] Intelligent Mobile Support [facility] CHLORIDE 104 98 - 107 mmol/L 05/13/2019 10:11 PM [facility] CO2 27 22 - 29 mmol/L 05/13/2019 10:11 PM [facility] CALCIUM 8.5(L) 8.6 - 10.4 mg/dL 05/13/2019 10:11 PM [facility] BUN 24(H) 6 - 20 mg/dL 05/13/2019 10:11 PM [facility] CREATININE 1.09 0.70 - 1.20 mg/dL 05/13/2019 10:11 PM [facility] Comment:The GFR result is no t clinically significant on patients <18 or >70 years of age. GLUCOSE 96 74 - 99 mg/dL 05/13/2019 10:11 PM [facility] Intelligent Mobile Support [facility] GFR >60 mL/min/1.7 3 sq meter 05/13/2019 10:11 PM [facility] Intelligent Mobile Support [facility] Comment: eGFR has not been [...] mL/min/1.7 3 sq meter 05/13/2019 10:11 PM SPECIAL TECHNICAL OPERATIONS OFFICER [facility] LABORATORY SERVICES [facility] ANION GAP 12 8 - 16 mmol/L 05/13/2019 10:11 PM SPECIAL TECHNICAL OPERATIONS OFFICER [facility] LAB[facility] Blood BLOOD SPECIMEN / Unknown Collection / Unknown 05/13/2019 4:50 PM SPECIAL TECHNICAL OPERATIONS OFFICER 05/13/2019 9:42 PM SPECIAL TECHNICAL OPERATIONS OFFICER External Provider [facility] CHEMISTRY ORDERABLES Johanne l Result [facility] LAB[facility] CLIA# [id number] [place] [address] documented in this encounter Visit Diagnoses Diagnosis Other fatigue documented in this encounter
--- OUTSIDE RECORDS SUMMARY | 2025-04-23 01:48 | XMS_ITS | Encounter Summary ---
Author Organization [facility] Address 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 Gender Identity Not on file Sexual [...] ORDERABLES Final Res ult Performing Organization Address [facility] Phone Number INTERFACE SYSTEM [...] ORDERABLES Final Res ult Performing Organization Address [facility] Phone Number INTERFACE SYSTEM [...] ORDERABLES Final Resu lt Performing Organization Address [facility] Phone Number INTERFACE SYSTEM Refer to clinic/hospital department * (ABNORMAL) POC GLUCOSE (01/08/2006 9:26 PM CDT) GLUCOSE POC 133(H) 65 - 109 mg/dL INTERFACE SYSTEM 01/08/2006 9:26 PM CDT José Fine MD POINT OF CARE TESTING Final Result Performing Organization Address [facility] Phone Number INTERFACE SYSTEM Refer to clinic/hospital department * (ABNORMAL) POC GLUCOSE (01/08/2006 5:25 PM CDT) GLUCOSE POC 125(H) 65 - 109 mg/dL INTERFACE SYSTEM 01/08/2006 5:25 PM CDT José Fine MD POINT OF CARE TESTING Final Result Performing Organization Address [facility] Phone Number INTERFACE SYSTEM Refer to clinic/hospital department * (ABNORMAL) POC GLUCOSE (01/08/2006 11:50 AM CDT) GLUCOSE POC 122(H) 65 - 109 mg/dL INTERFACE SYSTEM 01/08/2006 11:5 0 AM CDT us José Fine MD POINT OF CARE TESTING Final Result Performing Organization Address [facility] Phone Number INTERFACE SYSTEM Refer to clinic/hospital department * (ABNORMAL) POC GLUCOSE (01/08/2006 5:35 AM CDT) GLUCOSE POC 128(H) 65 - 109 mg/dL INTERFACE SYSTEM 01/08/2006 5:35 AM CDT us José Fine MD POINT OF CARE TESTING Final Result Performing Organization Address [facility] Phone Number INTERFACE SYSTEM Refer to clinic/hospital department * (ABNORMAL) POC GLUCOSE (01/07/2006 8:48 PM CDT) GLUCOSE POC 124(H) 65 - 109 mg/dL INTERFACE SYSTEM 01/07/2006 8:48 PM CDT us José Fine MD POINT OF CARE TESTING Final Result Performing Organization Address [facility] Phone Number INTERFACE SYSTEM Refer to clinic/hospital department * (ABNORMAL) POC GLUCOSE (01/07/2006 4:51 PM CDT) GLUCOSE POC 121(H) 65 - 109 mg/dL INTERFACE SYSTEM 01/07/2006 4:51 PM CDT us José Fine MD POINT OF CARE TESTING Final Result Performing Organization Address [facility] Phone Number INTERFACE SYSTEM Refer to clinic/hospital department * (ABNORMAL) POC GLUCOSE (01/07/2006 11:16 AM CDT) GLUCOSE POC 119(H) 65 - 109 mg/dL INTERFACE SYSTEM 01/07/2006 11:1 6 AM CDT us José Fine MD POINT OF CARE TESTING Final Result Performing Organization Address [facility] de Phone Number INTERFACE SYSTEM Refer to clinic/hospital department * (ABNORMAL) POC GLUCOSE (01/07/2006 6:24 AM CDT) GLUCOSE POC 114(H) 65 - 109 mg/dL INTERFACE SYSTEM 01/07/2006 6:24 AM CDT us José Fine MD POINT OF CARE TESTING Final Result Performing Organization Address [facility] de Phone Number INTERFACE [...] ORDERABLES Final Resu lt Performing Organization Address [facility] de Phone Number INTERFACE [...] ORDERABLES Final Resu lt Performing Organization Address City/[facility] de Phone Number INTERFACE SYSTEM Refer to clinic/hospital department * PHOSPHORUS (01/07/2006 5:30 AM CDT) PHOSPHORUS 3.1 2.5 - 4.5 mg/dL INTERFACE SYSTEM 01/07/2006 5:30 AM CDT Terry Cole MD CHEMISTRY ORDERABLES Final Resul t Performing Organization Address [facility] Phone Number INTERFACE SYSTEM Refer to clinic/hospital department * MAGNESIUM LEVEL (01/07/2006 5:30 AM CDT) MAGNESIUM 2.3 1.5 - 2.5 mg/dL INTERFACE SYSTEM 01/07/2006 5:30 AM CDT Terry Cole MD CHEMISTRY ORDERABLES Final Resul t Performing Organization Address [facility] Phone Number INTERFACE SYSTEM [...] ORDERABLES Final Resul t Performing Organization Address [facility] de Phone Number INTERFACE SYSTEM Refer to clinic/hospital department * (ABNORMAL) POC GLUCOSE (01/07/2006 12:49 AM CDT) GLUCOSE POC 114(H) 65 - 109 mg/dL INTERFACE SYSTEM 01/07/2006 12:4 9 AM CDT us José Fine MD POINT OF CARE TESTING Final Result Performing Organization Address City/[facility] Co de Phone Number INTERFACE SYSTEM Refer to clinic/hospital department * (ABNORMAL) POC GLUCOSE (01/06/2006 5:40 PM CDT) COMMENT, GLU POC Notified RN INTERFACE SYSTEM GLUCOSE POC 128(H) 65 - 109 mg/dL INTERFACE SYSTEM 01/06/2006 5:40 PM CDT us José Fine MD POINT OF CARE TESTING Final Result Performing Organization Address [facility] Phone Number INTERFACE SYSTEM Refer to clinic/hospital department * (ABNORMAL) POC GLUCOSE (01/06/2006 11:43 AM CDT) COMMENT, GLU POC Notified RN INTERFACE SYSTEM GLUCOSE POC 120(H) 65 - 109 mg/dL INTERFACE SYSTEM 01/06/2006 11:4 3 AM CDT us José Fine MD POINT OF CARE TESTING Final Result Performing Organization Address [facility] de Phone Number INTERFACE SYSTEM Refer to clinic/hospital department * (ABNORMAL) POC GLUCOSE (01/06/2006 5:48 AM CDT) GLUCOSE POC 120(H) 65 - 109 mg/dL INTERFACE SYSTEM 01/06/2006 5:48 AM CDT us José Fine MD POINT OF CARE TESTING Final Result Performing Organization Address [facility] Co de Phone Number INTERFACE SYSTEM [...] ORDERABLES Final Resu lt Performing Organization Address City/[facility]/ZIP Co de Phone Number INTERFACE SYSTEM [...] ORDERABLES Final Resul t Performing Organization Address [facility] de Phone Number INTERFACE [...] ORDERABLES Final Resul t Performing Organization Address City/[facility]/ZIP Co de Phone Number INTERFACE SYSTEM Refer to clinic/hospital department * (ABNORMAL) POC GLUCOSE (01/06/2006 1:00 AM CDT) GLUCOSE POC 142(H) 65 - 109 mg/dL INTERFACE SYSTEM 01/06/2006 1:00 AM CDT José Fine MD POINT OF CARE TESTING Final Result Performing Organization Address [facility] Phone Number INTERFACE SYSTEM Refer to clinic/hospital department * (ABNORMAL) POC GLUCOSE (01/05/2006 5:49 PM CDT) GLUCOSE POC 137(H) 65 - 109 mg/dL INTERFACE SYSTEM 01/05/2006 5:49 PM CDT José Fine MD POINT OF CARE TESTING Final Result Performing Organization Address [facility] Phone Number INTERFACE SYSTEM Refer to clinic/hospital department * (ABNORMAL) POC GLUCOSE (01/05/2006 11:57 AM CDT) GLUCOSE POC 133(H) 65 - 109 mg/dL INTERFACE SYSTEM 01/05/2006 11:5 7 AM CDT José Fine MD POINT OF CARE TESTING Final Result Performing Organization Address [facility] Phone Number INTERFACE SYSTEM Refer to clinic/hospital department * (ABNORMAL) POC GLUCOSE (01/05/2006 5:59 AM CDT) GLUCOSE POC 142(H) 65 - 109 mg/dL INTERFACE SYSTEM 01/05/2006 5:59 AM CDT José Fine MD POINT OF CARE TESTING Final Result Performing Organization Address [facility] Phone Number INTERFACE SYSTEM [...] K/uL INTERFACE SYSTEM 01/05/2006 4:00 AM CDT [facility] [employer] HEMATOLOGY ORDERABLES Final Result Performing Organization Address [facility] Phone Number INTERFACE SYSTEM [...] fL INTERFACE SYSTEM 01/05/2006 4:00 AM CDT [employer] HEMATOLOGY ORDERABLES Final Result Performing Organization Address [facility] Phone Number INTERFACE SYSTEM [...] for unfractionated heparin 01/05/2006 4:00 AM CDT [employer] HEMATOLOGY ORDERABLES Final Result Performing Organization Address [facility] Phone Number INTERFACE SYSTEM Refer to clinic/hospital department * PHOSPHORUS (01/05/2006 4:00 AM CDT) PHOSPHORUS 2.9 2.5 - 4.5 mg/dL INTERFACE SYSTEM 01/05/2006 4:00 AM CDT Luis Eduardo [employer] CHEMISTRY ORDERABLES Final R esult Performing Organization Address [facility] Phone Number INTERFACE SYSTEM Refer to clinic/hospital department * MAGNESIUM LEVEL (01/05/2006 4:00 AM CDT) MAGNESIUM 2.2 1.5 - 2.5 mg/dL INTERFACE SYSTEM 01/05/2006 4:00 AM CDT [employer] CHEMISTRY ORDERABLES Final R esult Performing Organization Address [facility] Phone Number INTERFACE SYSTEM [...] ORDERABLES Final R esult Performing Organization Address [facility] Phone Number INTERFACE SYSTEM Refer to clinic/hospital department * (ABNORMAL) POC GLUCOSE (01/04/2006 11:41 PM CDT) GLUCOSE POC 140(H) 65 - 109 mg/dL INTERFACE SYSTEM 01/04/2006 11:4 1 PM CDT us José Fine MD POINT OF CARE TESTING Final Result Performing Organization Address [facility] Phone Number INTERFACE SYSTEM Refer to clinic/hospital department * (ABNORMAL) POC GLUCOSE (01/04/2006 5:43 PM CDT) GLUCOSE POC 156(H) 65 - 109 mg/dL INTERFACE SYSTEM 01/04/2006 5:43 PM CDT us José Fine MD POINT OF CARE TESTING Final Result Performing Organization Address [facility] Phone Number INTERFACE SYSTEM Refer to clinic/hospital department * (ABNORMAL) POC GLUCOSE (01/04/2006 11:37 AM CDT) GLUCOSE POC 175(H) 65 - 109 mg/dL INTERFACE SYSTEM 01/04/2006 11:3 7 AM CDT us José Fine MD POINT OF CARE TESTING Final Result Performing Organization Address [facility] Phone Number INTERFACE SYSTEM Refer to clinic/hospital department * (ABNORMAL) POC GLUCOSE (01/04/2006 6:11 AM CDT) GLUCOSE POC 183(H) 65 - 109 mg/dL INTERFACE SYSTEM 01/04/2006 6:11 AM CDT José Fine MD POINT OF CARE TESTING Final Result Performing Organization Address [facility] Phone Number INTERFACE SYSTEM [...] ORDERABLES F inal Result Performing Organization Address [facility] Phone Number INTERFACE SYSTEM [...] ORDERABLES F inal Result Performing Organization Address [facility] Phone Number INTERFACE SYSTEM Refer to clinic/hospital department * PHOSPHORUS (01/04/2006 4:20 AM CDT) PHOSPHORUS 2.5 2.5 - 4.5 mg/dL INTERFACE SYSTEM 01/04/2006 4:20 AM CDT us Rayray Wilcox MD CHEMISTRY ORDERABLES Fi nal Result Performing Organization Address [facility] Phone Number INTERFACE SYSTEM Refer to clinic/hospital department * MAGNESIUM LEVEL (01/04/2006 4:20 AM CDT) MAGNESIUM 2.0 1.5 - 2.5 mg/dL INTERFACE SYSTEM 01/04/2006 4:20 AM CDT Rayray Wilcox MD CHEMISTRY ORDERABLES Fi nal Result Performing Organization Address [facility] Phone Number INTERFACE SYSTEM [...] ORDERABLES Final Re sult Performing Organization Address [facility]/ZIP Co de Phone Number INTERFACE SYSTEM Refer to clinic/hospital department * (ABNORMAL) POC GLUCOSE (01/04/2006 12:25 AM CDT) GLUCOSE POC 188(H) 65 - 109 mg/dL INTERFACE SYSTEM 01/04/2006 12:2 5 AM CDT José Fine MD POINT OF CARE TESTING Final Result Performing Organization Address [facility] de Phone Number INTERFACE SYSTEM Refer to clinic/hospital department * (ABNORMAL) POC GLUCOSE (01/03/2006 5:25 PM CDT) GLUCOSE POC 177(H) 65 - 109 mg/dL INTERFACE SYSTEM 01/03/2006 5:25 PM CDT José Fine MD POINT OF CARE TESTING Final Result Performing Organization Address [facility] de Phone Number INTERFACE SYSTEM Refer to clinic/hospital department * (ABNORMAL) POC GLUCOSE (01/03/2006 11:34 AM CDT) GLUCOSE POC 148(H) 65 - 109 mg/dL INTERFACE SYSTEM 01/03/2006 11:3 4 AM CDT José Fine MD POINT OF CARE TESTING Final Result Performing Organization Address [facility] de Phone Number INTERFACE [...] ORDERABLES F inal Result Performing Organization Address [facility] Phone Number INTERFACE SYSTEM [...] ORDERABLES F inal Result Performing Organization Address [facility] Phone Number INTERFACE SYSTEM [...] ORDERABLES F inal Result Performing Organization Address [facility] Phone Number INTERFACE SYSTEM [...] F inal Result Performing Organization Address [facility] Number INTERFACE SYSTEM Refer to clinic/hospital department * PHOSPHORUS (01/03/2006 10:46 AM CDT) PHOSPHORUS 3.3 2.5 - 4.5 mg/dL INTERFACE SYSTEM 01/03/2006 10:4 6 AM CDT Rayray Wilcox MD CHEMISTRY ORDERABLES Fi nal Result Performing Organization Address [facility] Phone Number INTERFACE SYSTEM Refer to clinic/hospital department * MAGNESIUM LEVEL (01/03/2006 10:46 AM CDT) MAGNESIUM 1.8 1.5 - 2.5 mg/dL INTERFACE SYSTEM 01/03/2006 10:4 6 AM CDT Rayray Wilcox MD CHEMISTRY ORDERABLES Fi nal Result Performing Organization Address [facility] Phone Number INTERFACE SYSTEM [...] CHEMISTRY ORDERABLES nal Result Performing Organization Address [facility] Phone Number INTERFACE SYSTEM [...] drugs of abuse are available on the [facility] Intranet at: [email or web address] Select: Drugs of Abuse ? [facility] To inquire about any potential cross-reactivity [...] URINE ORDERABLES Final Result Performing Organization Address City/[facility]/ZIP Co de Phone Number INTERFACE SYSTEM [...]
--- OUTSIDE RECORDS SUMMARY | 2025-04-23 01:48 | XMS_ITS | Encounter Summary ---
Author Organization [facility] Address [address] [place] [address] Care Team Providers Care Director Music Name Role Phone Unavailable Primary Care Provider Unavailabl e Encounter Details Date Type Department Care Team (Late st Contact Info) Description 09/26/2019 Lab Requisition [facility] Laboratory Services [address] [place] [address] [facility], External Provider [address] [place] [address] Unspecified abnormal findings in urine Social History Tobacco Use Types Packs/Day Years Used Date Smoking Tobacco: Never Assessed Sex and Gender Information Value Date Recorded Sex Assigned at Not on file 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 Gender Identity Not [...] - 145 mmol/L 09/26/2019 8:53 PM CDT [facility] POTASSIUM 5.1 3.4 - 5.1 mmol/L 09/26/2019 8:53 PM CDT [facility] CHLORIDE 105 98 - 107 mmol/L 09/26/2019 8:53 PM [facility] CO2 23 22 - 29 mmol/L 09/26/2019 8:53 PM [facility] CALCIUM 8.6 8.6 - 10.4 mg/dL 09/26/2019 8:53 PM [facility] BUN 28(H) 6 - 20 mg/dL 09/26/2019 8:53 PM [facility] CREATININE 1.07 0.67 - 1.17 mg/dL 09/26/2019 8:53 PM [facility] Comment:The GFR result is no t clinically significant on patients <18 or >70 years of age. GLUCOSE 83 74 - 99 mg/dL 09/26/2019 8:53 PM [facility] TOTAL PROTEIN 6.7 6.3 - 8.7 g/dL 09/26/2019 8:53 PM [facility] ALBUMIN 4.2 3.5 - 5.2 g/dL 09/26/2019 8:53 PM [facility] BILIRUBIN TOTAL 0.3 0.2 - 1.3 mg/dL 09/26/2019 8:53 PM [facility] ALKALINE PHOSPHATASE 99 40 - 150 U/L 09/26/2019 8:53 PM [facility] AST 18 0 - 41 U/L 09/26/2019 8:53 PM [facility] ALT 18 0 - 41 U/L 09/26/2019 8:53 PM [facility] GFR >60 mL/min/1.7 3 sq meter 09/26/2019 8:53 PM [facility] Comment: eGFR has not been validated [...] 3 sq meter 09/26/2019 8:53 PM CDT [facility] ANION GAP 14 8 - 16 mmol/L 09/26/2019 8:53 PM CDT [facility] Blood BLOOD SPECIMEN / Unknown Collection / Unknown 09/26/2019 3:44 PM CDT 09/26/2019 8:17 PM CDT us External Provider [facility] CHEMISTRY ORDERABLES Jhoanne l Result [facility] CLIA# [id number] [place] [address] * (ABNORMAL) CBC WITH DIFFERENTIAL (09/26/2019 3:44 PM CDT) WBC 6.6 4.5 - 10.5 K/uL 09/26/2019 8:26 PM CDT [facility] RBC 3.80(L) 4.50 - 5.40 M/uL 09/26/2019 8:26 PM CDT [facility] HEMOGLOBIN 11.5(L) 13.6 - 16.5 g/dL 09/26/2019 8:26 PM CDT [facility] HEMATOCRIT 34.3(L) 40.0 - 48.0 % 09/26/2019 8:26 PM CDT [facility] MCV 90.2 82.0 - 99.0 fL 09/26/2019 8:26 PM CDT [facility] MCH 30.2 27.8 - 34.5 pg 09/26/2019 8:26 PM CDT [facility] MCHC 33.5 32.5 - 35.5 g/dL 09/26/2019 8:26 PM CDT [facility] RDW 15.8(H) 11.5 - 14.5 % 09/26/2019 8:26 PM CDT [facility] PLATELETS 175 160 - 420 K/uL 09/26/2019 8:26 PM CDT [facility] MPV 10.2 8.7 - 12.7 fL 09/26/2019 8:26 PM CDT [facility] NEUTROPHILS 68 45 - 70 % 09/26/2019 8:26 PM CDT [facility] LYMPHOCYTES 16 16 - 45 % 09/26/2019 8:26 PM CDT [facility] MONOCYTES 10 3 - 13 % 09/26/2019 8:26 PM CDT [facility] EOSINOPHILS 5 0 - 7 % 09/26/2019 8:26 PM CDT [facility] BASOPHILS 1 0 - 2 % 09/26/2019 8:26 PM CDT [facility] NEUTROPHIL ABSOLUTE 4.50 1.90 - 7.00 K/uL 09/26/2019 8:26 PM CDT [facility] LYMPHOCYTE ABSOLUTE 1.10 0.70 - 4.50 K/uL 09/26/2019 8:26 PM CDT [facility] MONOCYTE ABSOLUTE 0.60 0.10 - 1.30 K/uL 09/26/2019 8:26 PM CDT [facility] EOSINOPHIL ABSOLUTE 0.40 0.00 - 0.70 K/uL 09/26/2019 8:26 PM CDT [facility] BASOPHILS ABSOLUTE 0.00 0.00 - 0.20 K/uL 09/26/2019 8:26 PM CDT [facility] Blood BLOOD SPECIMEN / Unknown Collection / Unknown 09/26/2019 3:44 PM CDT 09/26/2019 8:17 PM CDT us External Provider [facility] HEMATOLOGY ORDERABLES Fin al Result [facility] CLIA# [id number] [address] [place] [address] * (ABNORMAL) URINALYSIS WITH REFLEX MICROSCOPIC (09/26/2019 3:00 PM CDT) COLOR UA Yellow Pale to Dark Yellow 09/26/2019 8:52 PM CDT [facility] CLARITY UA Slightly Cloudy(A) Clear 09/26/2019 8:52 PM CDT [facility] SPECIFIC GRAVITY UA 1.019 1.003 - 1.035 09/26/2019 8:52 PM CDT [facility] PH UA 5.0 5.0 - 8.0 09/26/2019 8:52 PM CDT [facility] LEUKOCYTE ESTERASE UA Negative Negative 09/26/2019 8:52 PM CDT [facility] NITRITE UA Negative Negative 09/26/2019 8:52 PM CDT [facility] PROTEIN UA Negative Negative 09/26/2019 8:52 PM CDT [facility] GLUCOSE UA Negative Negative 09/26/2019 8:52 PM CDT [facility] KETONES UA Negative Negative 09/26/2019 8:52 PM CDT [facility] UROBILINOGEN UA Normal <2.0 mg/dL 0 8:52 PM CDT [facility] BILIRUBIN UA Negative Negative 09/26/2019 8:52 PM CDT [facility] BLOOD UA Negative Negative 09/26/2019 8:52 PM CDT [facility] Comment:Ascorbic acid may ca use false negative results for blood. A microscopic review was reflexed to rule out this interference. WBC UA 0-2 0 - 2 /hpf [facility]2019 8:[facility] RBC [facility]A 0-2 0 - 2 /hpf 09/26/2019 8:52 PM CDT [facility] BACTERIA UA 1+(A) Negative /hpf 09/26/2019 8:52 PM CDT [facility] EPITHELIAL CELLS, URINE 0-5 0 - 5 /hpf 09/26/2019 8:52 PM CDT [facility] HYALINE CAST 0-2 None Seen, 0-2 /lpf 09/26/2019 8:52 PM CDT [facility] Ascorbic Acid UA Positive(A) Negative 020 8:52 PM CDT [facility] Urine URINE SPECIMEN OBTAINED BY CLEAN CATCH PROCEDURE / Unknown Collection / Unknown 09/26/2019 3:00 PM CDT 09/26/2019 8:17 PM CDT us External Provider [facility] URINE ORDERABLES Final Re sult [facility] CLIA# [id number] [place] [address] documented in this encounter Visit Diagnoses Diagnosis Unspecified abnormal findings in urine documented in this encounter
--- OUTSIDE RECORDS SUMMARY | 2025-04-23 01:48 | XMS_ITS | Encounter Summary ---
Author Organization [facility] Address [address] [place] [address] Care Team Providers Care Taping Supervisor Name Role Phone Unavailable Primary Care Provider Unavailabl e Encounter Details Date Type Department Care Team (Late st Contact Info) Description 01/06/2006 Outpatient Historical [facility] Trauma and General Surgery [address] [facility] [place] [address] Jayden James MD [address] [facility] [place] [address] Social History Tobacco Use Types Packs/Day Years Used Date Smoking Tobacco: Never Assessed Sex and Gender Information Value Date Recorded Sex Assigned at Not on file 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
--- OUTSIDE RECORDS SUMMARY | 2025-04-23 01:48 | XMS_ITS | Clinical Summary ---
Author Organization [facility] Address [address] [place] [address] Care Team Providers Care Boilermaker Helper Name Role Phone Unavailable Primary Care [...] daily. 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 Urine cx from [facility] on 05/04 also growing pseudomonas, resistant to [...] to reach son and obtained collateral from [facility] - [place] Head today. - Fall precautions, [...] oxycodone prn. Baclofen pump rx'd by the [facility]. Iron deficiency anemia, unspecified 10/26/2012 Gastric [...] Plan: Uses wheelchair at baseline. Resides at [facility]. Has baclofen pump/neurostimulator in place. 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
--- OUTSIDE RECORDS SUMMARY | 2025-04-23 01:48 | XMS_ITS | Encounter Summary ---
Author Organization [facility] Address [address] [place] [address] Care Team Providers Care Scientist Immunology Name Role Phone Unavailable Primary Care Provider Unavailabl e Encounter Details Date Type Department Care Team (Late st Contact Info) Description 01/08/[address] 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
--- OUTSIDE RECORDS SUMMARY | 2025-04-23 01:48 | XMS_ITS | Encounter Summary ---
Author Organization [facility] Address [address] [place] [address] Care Team Providers Care Reactor Service Operator Name Role Phone Unavailable Primary Care Provider Unavailabl e Encounter Details Date Type Department Care Team (Late st Contact Info) Description 01/09/2006 Outpatient Historical [facility] Trauma and General Surgery [address] [address] [address] [place] [address] [place] [address] Social History Tobacco Use Types Packs/Day Years Used Date Smoking Tobacco: Never Assessed Sex and Gender Information Value Date Recorded Sex Assigned at Not on file 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
--- OUTSIDE RECORDS SUMMARY | 2025-04-23 01:48 | XMS_ITS | Encounter Summary ---
Author Organization [facility] Address [address] [place] [address] Care Team Providers Care Marine Oil Terminal Superintendent Name Role Phone Unavailable Primary Care Provider Unavailabl e Encounter Details Date Type Department Care Team (Late st Contact Info) Description 01/12/2006 Outpatient Historical [facility] Trauma and General Surgery [address] 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
--- OUTSIDE RECORDS SUMMARY | 2025-04-23 01:48 | XMS_ITS | Encounter Summary ---
Author Organization [facility] Address [address] [place] [address] Care Team Providers Care Inbound Customer Service Representative Name Role Phone Unavailable Primary Care Provider Unavailabl e Encounter Details Date Type Department Care Team (Late st Contact Info) Description 01/04/2006 Outpatient Historical [facility] Trauma and General Surgery [address] [facility] [facility] [place] [address] Jayden James MD [address] [facility] [address] [facility] [place] [address] Social History Tobacco Use Types Packs/Day Years Used Date Smoking Tobacco: Never Assessed Sex and Gender Information Value Date Recorded Sex Assigned at Not on file 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
--- OUTSIDE RECORDS SUMMARY | 2025-04-23 01:48 | XMS_ITS | Encounter Summary ---
Author Organization [facility] Address [address] [place] [address] Care Team Providers Care Computer Hardware Designer Name Role Phone Unavailable Primary Care Provider Unavailabl e Encounter Details Date Type Department Care Team (Late st Contact Info) Description 01/10/2006 Outpatient Historical [facility] Trauma and General Surgery [address] [address] [address] [place] [address] [place] [address] Social History Tobacco Use Types Packs/Day Years Used Date Smoking Tobacco: Never Assessed Sex and Gender Information Value Date Recorded Sex Assigned at Not on file 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
--- OUTSIDE RECORDS SUMMARY | 2025-04-23 01:48 | XMS_ITS | Encounter Summary ---
Author Organization [facility] Address [address] [place] [address] Care Team Providers Care Tube Room Supervisor Name Role Phone Unavailable Primary Care Provider Unavailabl e Encounter Details Date Type Department Care Team (Late st Contact Info) Description 01/11/2006 Outpatient Historical [facility] Trauma and General Surgery [address] [facility] [address] [address] [place] [address] [place] [address] Social History Tobacco Use Types Packs/Day Years Used Date Smoking Tobacco: Never Assessed Sex and Gender Information Value Date Recorded Sex Assigned at Not on file 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
--- OUTSIDE RECORDS SUMMARY | 2025-04-23 01:48 | XMS_ITS | Clinical Summary ---
Author Organization [facility] Address [address] [place] [address] Phone Care Team Providers Care Remote Sensing Advisor Name Role Phone JATIN STEPHEN, LUAN Carvajal [phone] Reason for Visit and Chief [...] Active Last Documented On 4 3:17PM ; [facility] Cerebral Infarction 07/15/2023 LUAN Arriaga Active Last Documented On 4 3:19PM ; [facility] Cervicalgia 07/15/2023 LUAN STEINER MD Active Last Documented On 4 3:16PM ; [facility] Constipation 07/15/2023 LUAN STEINER MD Activ e Last Documented On 4 3:17PM ; [facility] Hyperlipidemia 07/15/2023 LUAN STEINER MD Act lottie Last Documented On 4 3:18PM ; [facility] Essential Hypertension 07/15/2023 LUAN NATH MD Active Last Documented On 4 3:20PM ; [facility] Major Depression 07/15/2023 LUAN STEINER MD A ctive Last Documented On 4 3:17PM ; [facility] Neuromuscular Dysfunction of Bladder 07/15/2023 LUAN STEINER MD Active Last Documented On 4 3:17PM ; [facility] Neurogenic Bowel 07/15/2023 LUAN STEINER MD A ctive Last Documented On 4 3:18PM ; [facility] Quadriplegia 07/15/2023 LUAN STEINER MD Activ e Last Documented On 4 3:16PM ; [facility] Risk: Gastro-esophageal Reflux 07/15/2023 DANNIELLE STENIER MD Active Last Documented On 4 3:20PM ; [facility] Urethra Catheter in Place 07/15/2023 LUAN STEINER MD Active Last Documented On 4 3:14PM ; [facility] Urinary Tract Infection 07/15/2023 LUAN GLEASON OM, MD Active Last Documented On 4 3:18PM ; [facility] Plan of Treatment Pending Tests Order Diagnosis Results Due Ordering Provider Pain Management CPT Neurostimulator lead and generator, implantable [facility] compl of implnt elec nstim, generator, init 08/14/23 LUAN STEINER MD Last Documented On 4 2:29PM ; [facility] Pain Management CPT Permanent Spinal Cor d Stimulator Insert/Replace [facility] compl of implnt elec nstim, generator, init 08/14/23 LUAN STEINER MD Last Documented On 4 2:29PM ; [facility] Outside Procedures - Cardiology EKG Essential (primary) hypertension 08/14/23 LUAN STEINER MD Last Documented On 4 1:55PM ; [facility] Assessments Includes: Assessments from this encounter Findings - [I10 - Essential (primary) hypertension] Essential hypertension - Last Documented On 07/15/2023 5:41PM ; [facility] - [M62.49 - Contracture of muscle, multiple sites] Muscle contracture of multiple sites - Last Documented On 07/15/2023 5:41PM ; [facility] - [M46.1 - Sacroiliitis, not elsewhere classified] Right sacroiliitis - Last Documented On 07/15/2023 5:41PM ; [facility] - [M54.6 - Pain in thoracic spine] Pain in thoracic spine - Last Documented On 07/15/2023 5:41PM ; [facility] - [R25.2 - Cramp and spasm] Spasms - Last Documented On 07/15/2023 5:41PM ; [facility] - [S14.156S - Other incomplete lesion at C6 level of cervical spinal cord, sequela] Spinal cord injury at the C5-C7 level with incomplete lesion of the cord - Last Documented On 07/15/2023 5:41PM ; [facility] - [G89.29 - Other chronic pain] Chronic pain - Last Documented On 07/15/2023 5:41PM ; [facility] - [T85.193A - Other mechanical complication of implanted electronic neurostimulator, generator, initial encounter] Mechanical complication of implanted electronic neurostimulator generator - Last Documented On 07/15/2023 5:41PM ; [facility] - [D50.9 - Iron deficiency anemia, unspecified] Anemia - Last Documented On 07/15/2023 5:41PM ; [facility] Medical Equipment - Implanted Devices Includes: Current Devices No Medical Equipment Recorded Medications Includes: Medications discussed during this encounter and other current Medications Current Medications (continue as prescribed) hydrALAZINE HCl 50 MG Oral Tablet 07/15/2023 Provide r: Diagnosis: q 8 hrs prn Last Documented On 07/15/2023 2:59PM By Brooke Brown RN ; [facility] Acidophilus Probiotic Oral Capsule 07/15/2023 Provid er: Diagnosis: Daily Last Documented On 07/15/2023 2:59PM By Brooke Brown RN ; [facility] amLODIPine Besylate 10 MG Oral Tablet 07/15/2023 Pro vider: Diagnosis: Daily Last Documented On 07/15/2023 3:00PM By Brooke Brown RN ; [facility] Ascorbic Acid 500 MG Oral Tablet 07/15/2023 Provider : Diagnosis: Daily Last Documented On 07/15/2023 3:00PM By Brooke Brown RN ; [facility] Aspirin 81 MG Oral Tablet Chewable 07/15/2023 Provid er: Diagnosis: Daily Last Documented On 07/15/2023 3:02PM By Brooke Brown RN ; [facility] Atorvastatin Calcium 80 MG Oral Tablet 07/15/2023 Pr ovider: Diagnosis: Daily Last Documented On 07/15/2023 3:03PM By Brooke Brown RN ; [facility] Baclofen 5 MG Oral Tablet 07/15/2023 Provider: Diagnosis: Daily TID Last Documented On 07/15/2023 3:03PM By Brooke Brown RN ; [facility] Bisacodyl 5 MG Oral Tablet Delayed Release 07/15/2023 Provider: Diagnosis: PRN Last Documented On 07/15/2023 3:03PM By Brooke Brown RN ; [facility] Claritin 10 MG Oral Tablet 07/15/2023 Provider: Diagnosis: Daily Last Documented On 07/15/2023 3:04PM By Brooke Brown RN ; [facility] Cranberry 450 MG Oral Capsule 07/15/2023 Provider: Diagnosis: BID Last Documented On 07/15/2023 3:04PM By Brooke Brown RN ; [facility] Ferrous Sulfate 325 (65 Fe) MG Oral Tablet Delayed Rel ease 07/15/2023 Provider: Diagnosis: Daily Last Documented On 07/15/2023 3:05PM By Brooke Brown RN ; [facility] Fleet Bisacodyl 10 MG/30ML Rectal Enema 07/15/2023 P rovider: Diagnosis: once a day prn Last Documented On 07/15/2023 3:05PM By Brooke Brown RN ; [facility] B Xztddmq-N-Iuclj Acid Oral Tablet 07/15/2023 Provid er: Diagnosis: daily 1 mg Last Documented On 07/15/2023 3:06PM By Brooke Brown RN ; [facility] HM Lidocaine Patch 4% External 07/15/2023 Provider: Diagnosis: 5% 2 patches q 12 hrs Last Documented On 07/15/2023 3:07PM By Brooke Brown RN ; [facility] Mineral Oil Oral 07/15/2023 Provider: Diagnosis: TID prn Last Documented On 07/15/2023 3:08PM By Brooke Brown RN ; [facility] Myrbetriq 25 MG Oral Tablet Extended Release 24 Hour 0 07/15/2023 Provider: Diagnosis: Daily Last Documented On 07/15/2023 3:08PM By Brooke Brown RN ; [facility] Simethicone 80 MG Oral Tablet Chewable 07/15/2023 Pr ovider: Diagnosis: BID Last Documented On 07/15/2023 3:09PM By Brooke Brown RN ; [facility] Daily Value Multivitamin Oral Tablet 07/15/2023 Prov ider: Diagnosis: daily Last Documented On 07/15/2023 3:09PM By Brooke Brown RN ; [facility] Metamucil 28% Oral Packet 07/15/2023 Provider: Diagnosis: BID Last Documented On 07/15/2023 3:10PM By Brooke Brown RN ; [facility] Metoprolol Tartrate 25 MG Oral Tablet 07/15/2023 Pro vider: Diagnosis: BID Last Documented On 07/15/2023 3:11PM By Brooke Brown RN ; [facility] Protonix 40 MG Oral Tablet Delayed Release 07/15/2023 Provider: Diagnosis: BID Last Documented On 07/15/2023 3:11PM By Brooke Brown RN ; [facility] Prinivil 10 MG Oral Tablet 07/15/2023 Provider: Diagnosis: 2 tabs once a day Last Documented On 07/15/2023 3:12PM By Brooke Brown RN ; [facility] Anusol-HC 2.5% External Cream 07/15/2023 Provider: Diagnosis: prn Last Documented On 07/15/2023 3:12PM By Brooke Brown RN ; [facility] Naloxone HCl 4 MG/0.1ML Nasal Liquid 07/15/2023 Prov ider: Diagnosis: prn Last Documented On 07/15/2023 3:12PM By Brooke Brown RN ; [facility] Lyrica 100 MG Oral Capsule 07/15/2023 Provider: Diagnosis: BID Last Documented On 07/15/2023 3:27PM By Brooke Brown RN ; [facility] Medications Administered Includes: Administered Medications from this encounter No Administered Medications Recorded Vital Signs Includes: Vital Signs from this encounter Vital Name 07/15/2023 02:43P Blood Pressure Sitting L 120/60 BP Cuff Size Regular Pulse Rate-Sitting (bpm) 67 Pulse Rhythm Regular Respiration Rate (breaths/min) 20 Weight (lb) 197 Pain Level 7 Oxygen Saturation (%) 97 Last Documented: On 07/15/2023 2:45PM ; [facility] Results Includes: Results discussed during this encounter [...] years ago by a physician in the [place] region. Patient is not recall who. 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 He also undergone [...] to get his preoperative screening EKG at [facility] as he does not have time to do this today. Risks, benefits and alternatives the above treatment options were discussed in detail the patient who expressed explicit understanding and consent to proceed. Questions were elicited, asked and answered the best of our ability to his satisfaction today. [place] prescription monitoring database was reviewed and found to be appropriate. Imaging: All relevant imaging available was personally reviewed with the patient today with the following tests and results noted: [None available. Will obtain reports, patient will provide images at follow up.] Social History Description Last Updated Tobacco non-user 07/15/2023 Last Documented On 4 5:41PM ; [facility] No consumption of alcohol 07/15/2023 Last Documented On 4 5:41PM ; [facility] Not using drugs 07/15/2023 Last Documented On 4 5:41PM ; [facility] No recent change in sleep 07/15/2023 Last Documented On 4 5:41PM ; [facility] Smoking Status Unknown Procedures and Surgical History Includes: Procedures from this encounter Procedures Code Diagnosis Performing Provider Service L ocation Service Date a standard wheelchair Last Documented On 4 2:46PM ; [facility] use of tobacco assessment performed 1000F Last Documented On 4 2:42PM ; [facility] standardized depression screening: negative for symptoms 3351F Last Documented On 4 2:53PM ; [facility] review of medications documented 1160F Last Documented On 4 2:42PM ; [facility] screening for adult depression: impressi on and score 0 Last Documented On 4 2:53PM ; [facility] Pain radiates to the right side of butto cks Last Documented On 4 2:46PM ; [facility] Clinical summary provided to patient Last Documented On 4 2:42PM ; [facility] SOAPP-R: total score 1 Last Documented On 4 2:46PM ; [facility] SOAPP-R: total score 1 Last Documented On 4 2:46PM ; [facility] Surgical History Last Updated Pacemaker 07/15/2023 Last Documented On 4 5:41PM ; [facility] Medical History Includes: Medical History addressed during this encounter Description Last Updated Denies a fear of falling. 07/15/2023 Last Documented On 4 5:41PM ; [facility] Has had no fall in the last 12 months. 0 07/15/2023 Last Documented On 4 5:41PM ; [facility] Currently wearing eyeglasses 07/15/2023 Last Documented On 4 5:41PM ; [facility] Moderate to severe pain 07/15/2023 Last Documented On 4 5:41PM ; [facility] No Spinal cord stimulator 07/15/2023 Last Documented On 4 5:41PM ; [facility] Pain Pump 07/15/2023 Last Documented On 4 5:41PM ; [facility] Please list all illnesses/co nditions you have been diagnosed with: Paralyzed 07/15/2023 Last Documented On 4 5:41PM ; [facility] Please list all surgeries: Pain pump 201 4stimuliers are in back 2015 07/15/2023 Last Documented On 4 5:41PM ; [facility] Treatment with TENS unit 07/15/2023 Last Documented On 4 5:41PM ; [facility] Which brand of pacemaker/defibrillator d o you have? Implants 07/15/2023 Last Documented On 4 5:41PM ; [facility] Blood pressure was high 07/15/2023 Last Documented On 4 5:41PM ; [facility] Hypertension 07/15/2023 Last Documented On 4 5:41PM ; [facility] No exposure to a contagious disease 07/05 Last Documented On 4 5:41PM ; [facility] No previous psychiatric treatment 2023 Last Documented On 4 5:41PM ; [facility] Not taking OTC medications 07/15/2023 Last Documented On 4 5:41PM ; [facility] Taking medication for high blood pressur e 07/15/2023 Last Documented On 4 5:41PM ; [facility] Family History Includes: Family History addressed during this encounter Description Last Updated Family history of Arthritis 07/15/2023 Last Documented On 4 5:41PM ; [facility] Maternal history of Arthritis 07/15/2023 Last Documented On 4 5:41PM ; [facility] Review of Systems Includes: Review of Systems [...] ve Last Documented On 4 8:38AM ; [facility] Effexor XR Allergy 07/15/2023 Active Last Documented On 4 8:38AM ; [facility] Bactrim Allergy 07/15/2023 Active Last Documented On 4 8:38AM ; [facility] Encounters Encounter Provider Location Date Check-In Time Check-Out Time Diagnosis PAIN MANAGEMENT NEW CONSULT LUAN STEINER MD [facility] 024 2:44PM 3:53PM Essential Hypertension,Anemi a,Spinal Cord Injury At the C5-c7 Level with Incomplete Lesion,Spasms,Lab Assistant catrina Pain,Muscle Contracture Multiple Sites,Sacroiliitis Right,Dorsopathy Dorsalgia Pain [facility] Thor[facility] Sp[facility] Com[facility] of Implanted Electronic Neurostimulator Generator Insurance Includes: Active Insurance Policies Plan Name Member ID Group # Subscriber Relationship Effect lottie Dates 1 - [facility] [id number] JEROME ASKEW Self 2 - [id number] JEROME ASKEW Self Clinical Notes Includes: Clinical Notes from this encounter * Progress note Date Encounter Last Documented by 07/15/2023 PAIN MANAGEMENT NEW CONSULT Last documented on 07/15/2023; 5:41 PM, LUAN STEINER MD; [facility] Top of Document This document represents the [...] years ago by a physician in the [place] region. Patient is not recall who. 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 He also undergone [...] to get his preoperative screening EKG at [facility] as he does not have time to do this today. Risks, benefits and alternatives the above treatment options were discussed in detail the patient who expressed explicit understanding and consent to proceed. Questions were elicited, asked and answered the best of our ability to his satisfaction today. [place] prescription monitoring database was reviewed and found [...] Daily, 0 days, 0 refills - B Gpzhtoc-F-Iyswo Acid Oral Tablet daily 1 mg, 0 [...] 2 days after. 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 Follow-up in 7 to 14 days for wound check. Lab: [facility] ([facility]) EndCited Practice Management Use of tobacco assessment performed Review of medications documented; Standardized depression screening: negative for symptoms and for adult impression and score 0. A total of 61 minutes were spent on this patient's evaluation, as above, with greater than 50% of this time spent in direct cfst-we-bwfi counseling and coordination of care. Results of [...] but may be subject to typographical or special education tutor errors. Verify all diagnoses, medications, dosages, and patient instructions with patient and/or the originator of this document. Health Reminders - Assess Blood Pressure satisfied 07/15/2023. - Assess Tobacco Use satisfied 07/15/2023. - Depression Screening satisfied 07/15/2023. - Follow up plan for Depression Screening satisfied 07/15/2023.
--- OUTSIDE RECORDS SUMMARY | 2025-04-23 01:48 | XMS_ITS | Encounter Summary ---
Author Organization [facility] Address 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
[2025-04-23 13:45] VITALS: BP 124/54; PULSE 81; RESP 20; TEMP 37.2; O2SAT 98
--- NOTE | 2025-04-23 14:08 | WPDHPUPDATE1 ---
History and Physical Update Update Date/Time: 04/23/25 14:08 History and Physical has been reviewed, including an updated exam of the patient. There are NO changes in the patient's condition. Risks, benefits, and alternatives have been discussed and questions answered. Patient agrees to proceed with procedure.
--- NOTE | 2025-04-23 14:08 | W.PM.PROC2 ---
Procedure Note - Detailed Date of Procedure 04/23/25 Pre-op Diagnosis sacroiliitis Post-op Diagnosis Same Procedure Performed Right Sacroiliac Joint Steroid Injection under Fluoroscopic Guidance and with Contrast Control. Surgeon Fredy Syed MD Building Construction Teacher None Anesthesia Local Description of Procedure INFORMED CONSENT: Risks, benefits and alternatives to the procedure were discussed in detail with the patient who expressed explicit understanding and consent to proceed. Patient was informed verbally and in written form regarding the risks associated with the procedure including the low risk of serious infection, bleeding/bruising, allergic reaction, nerve or organ injury, paralysis, procedural site pain or discomfort, worsening pain and/or mobility, failure to treat and/or disfigurement. The patient expressed explicit understanding and consent to proceed. All materials required for the procedure were available prior to procedure start. Site and side were marked prior to procedure and confirmed in the presence of the patient. PROCEDURE IN DETAIL: The patient was brought to the procedural suite and placed in the prone position. Patient was made comfortable with use of pillows under the head/chest, hips and ankles. Skin overlying the injection site on the affected side(s) was prepared broadly with ChloraPrep applicator and draped in a sterile manner. Aseptic technique was used throughout. The right SI joint was identified in the AP view and contralateral oblique angulation with caudal tilt was utilized to optimize visualization of the inferior and medial joint line representing the posterior portion of the joint. Local anesthesia was established by infiltration with approximately 5 mL of 2% lidocaine via a 1-1/2 inch 27-gauge needle. A 22-gauge 3.5 inch Quincke spinal needle was advanced until the needle entered the inferior third of the joint space approximately 1cm cephalad from its most inferior point. In the AP view, 0.5 mL of Omnipaque 300 contrast medium was injected after negative aspiration for CSF, blood or other bodily fluid, showing appropriate intra-articular spread of contrast without evidence of intravascular, perineural or intrathecal placement. A 1.5 mL solution containing 10 mg of dexamethasone in 0.5% PF bupivacaine was injected after repeat negative aspiration. Appropriate spread of the injectate was confirmed with washout of previous injected contrast. No parasthesias were elicited. Needle was removed completely intact without difficulty. Images were saved and documented in the patient chart. Patient's skin was cleansed and sterile bandage applied. The patient tolerated the procedure well. The patient was transported to the recovery area in stable condition where they were observed for an appropriate amount of time prior to discharge, without evidence of complication. The patient was instructed to avoid excessive activity for the next 48 hours, including climbing and frequent use of stairs. Showers only for 48 hours. They were instructed not to drive or operate heavy machinery for 24 hours. They are to monitor for severe headaches, fevers, chills, night sweats, erythema/swelling at the site or any other signs of infection, bleeding/bruising, bowel or bladder changes as well as new pain, weakness or numbness in the upper or lower extremity. Should they notice these changes, they are instructed to call our office immediately or report directly to the nearest Emergency Department if no answer or if after posted office hours. COMPLICATIONS: None COMMENTS: None CONTRAST WASTED: 29.5 mL Omnipaque 300. Complications No immediate complications Condition Stable Disposition Same day [facility] Billing Surgery - Charge Forward: Surgery Billing
[2025-04-23 14:45] VITALS: BP 149/73; PULSE 96; RESP 22; O2SAT 96
[2025-04-23] MEDS: BUPivacaine HCL 0.5% 10 ML AMP INFILTRATE (14:46)
[2025-04-23] MEDS: DEXAMETHASONE SODIUM PHOSP/PF 10 MG/ML 1 ML VIAL INFILTRATE (14:46)
[2025-04-23] MEDS: LIDOCAINE 1% LOCAL INJ 10 ML VIAL INFILTRATE (14:47)
[2025-04-23 14:55] VITALS: BP 124/57; PULSE 91; RESP 22; O2SAT 96
[2025-04-23 15:03] VITALS: BP 144/55; PULSE 93; RESP 16; O2SAT 94
== END 2025-04-23 15:55 | disposition home or self-care (01) ==
PROVIDERS: Visit Provider Anesthesiology Pain Medicine
PROC: (CPT 64451; principal; 2025-04-23 15:00)
DX: M47.818 Spondylosis without myelopathy or radiculopathy, sacral and sacrococcygeal region (principal); M46.1 Sacroiliitis, not elsewhere classified; G89.4 Chronic pain syndrome; K21.9 Gastro-esophageal reflux disease without esophagitis; D64.9 Anemia, unspecified; I10 Essential (primary) hypertension; F32.A Depression, unspecified; G93.41 Metabolic encephalopathy; G82.54 Quadriplegia, C5-C7 incomplete; N31.8 Other neuromuscular dysfunction of bladder; Z98.890 Other specified postprocedural states; Z97.8 Presence of other specified devices; Z96.0 Presence of urogenital implants; Z87.891 Personal history of nicotine dependence; Z87.11 Personal history of peptic ulcer disease; Z86.718 Personal history of other venous thrombosis and embolism; Z86.79 Personal history of other diseases of the circulatory system; Z80.1 Family history of malignant neoplasm of trachea, bronchus and lung
CPT/HCPCS: 64451; 99199; J2003; Q9965

== ENCOUNTER 2025-04-30 14:01 | Emergency (ER) | payer MEDICARE, MEDICAID, SELFPAY ==
[2025-04-30 14:24] VITALS: BP 100/44; PULSE 82; RESP 16; TEMP 36.8; O2SAT 96
--- OUTSIDE RECORDS SUMMARY | 2025-04-30 15:43 | XMS_ITS | Encounter Summary ---
Author Organization [facility] Address 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
--- OUTSIDE RECORDS SUMMARY | 2025-04-30 15:43 | XMS_ITS | Encounter Summary ---
Author Organization [facility] Address 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
--- OUTSIDE RECORDS SUMMARY | 2025-04-30 15:43 | XMS_ITS | Encounter Summary ---
Author Organization [facility] Address [address] [place] [address] Care Team Providers Care Bisque Kiln Placer Name Role Phone Unavailable Primary Care Provider Unavailabl e Encounter Details Date Type Department Care Team (Latest Contact Info) Description 03/15/2006 Inpatient Historical [facility] PATIENT IN A BED Yenny Hauser MD NO ADDRESS ON FILE Devan Agrawal MD [address] [facility] 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 Gender Identity Not on file Sexual Orientation [...] ORDERABLES Final R esult Performing Organization Address City/[facility] Phone Number INTERFACE SYSTEM [...] ORDERABLES Final R esult Performing Organization Address City/[facility] Phone Number INTERFACE SYSTEM Refer to clinic/hospital department * MAGNESIUM LEVEL (03/19/2006 4:38 AM CDT) MAGNESIUM 1.7 1.5 - 2.5 mg/dL INTERFACE SYSTEM 03/19/2006 4:38 AM CDT Yenny Hauser MD CHEMISTRY ORDERABLES Final Re sult Performing Organization Address City/[facility] Co de Phone Number [...] ORDERABLES Final Re sult Performing Organization Address City/[facility] Co de Phone Number INTERFACE SYSTEM Refer to clinic/hospital department * VANCOMYCIN LEVEL TROUGH (03/18/2006 11:30 AM CDT) Pathologist [facility] VANCOMYCIN, TROUGH 11.5 5.0 - 15.0 ug/mL INTERFACE SYSTEM Comment: Vancomycin Trough Toxic Level= >15.0 ug/mL 03/18/2006 11:3 0 AM CDT Yenny Hauser MD CHEMISTRY ORDERABLES Final Re sult Performing Organization Address [facility] Co de Phone Number [...] ORDERABLES Final Res ult Performing Organization Address City/[facility] de Phone Number INTERFACE [...] Resu lt Performing Organization Address [facility] Phone Number INTERFACE SYSTEM [...] Final Result Performing Organization Address [facility] Phone Number INTERFACE SYSTEM [...] Final Result Performing Organization Address [facility] Phone Number INTERFACE SYSTEM Refer to clinic/hospital department * (ABNORMAL) C-REACTIVE PROTEIN (03/17/2006 4:45 AM CDT) CRP 2.4(H) 0.0 - 0.8 mg/dL INTERFACE SYSTEM 03/17/2006 4:45 AM CDT Historical Provider CHEMISTRY ORDERABLES Final R esult Performing Organization Address [facility] Phone Number INTERFACE SYSTEM [...] ORDERABLES Final R esult Performing Organization Address City/[facility] Phone Number INTERFACE SYSTEM Refer to clinic/hospital department * (ABNORMAL) ACETONE QUALITATIVE (03/16/2006 6:30 PM CDT) ACETONE QUAL 2+ (30 mg/dL)(A) Neg (<10 mg/dL) INTERFACE SYSTEM 03/16/2006 6:30 PM CDT us Historical Provider CHEMISTRY ORDERABLES Final R esult Performing Organization Address [facility] Phone Number INTERFACE SYSTEM Refer to clinic/hospital department * LACTIC ACID (03/16/2006 6:30 PM CDT) LACTIC ACID 1.0 0.5 - 2.2 mmol/L INTERFACE SYSTEM 03/16/2006 6:30 PM CDT us Historical Provider CHEMISTRY ORDERABLES Final R esult Performing Organization Address [facility] Phone Number INTERFACE SYSTEM [...] Resu lt Performing Organization Address [facility] Phone Number INTERFACE SYSTEM [...] patients with mechanical heart valves or post [place]. Pediatric (12 years and under): 1.5 - [...] HEMATOLOGY ORDERABLES Final Result Performing Organization Address City/[facility] Phone Number INTERFACE SYSTEM [...] ORDERABLES Final R esult Performing Organization Address City/[facility] de Phone Number INTERFACE [...] Res ult Performing Organization Address [facility] Phone Number INTERFACE SYSTEM [...] Res ult Performing Organization Address [facility] de Phone Number INTERFACE [...]
--- OUTSIDE RECORDS SUMMARY | 2025-04-30 15:43 | XMS_ITS | Encounter Summary ---
Author Organization [facility] Address [address] [place] [address] Care Team Providers Care Extra Gang Supervisor Name Role Phone Unavailable Primary Care Provider Unavailabl e Encounter Details Date Type Department Care Team (Late st Contact Info) Description 03/14/[address] [facility] Adult Hospitalists [facility] [address] [place] [address] Devan Agrawal MD [address] [facility] 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
--- OUTSIDE RECORDS SUMMARY | 2025-04-30 15:43 | XMS_ITS | Encounter Summary ---
Author Organization [facility] Address [address] [facility] [place] [address] Care Team Providers Care Assembly Machine Tool Setter Name Role Phone Rod Strauss MD Primary Care Provider + [phone] Encounter Details Date Type Department Care Team (Late st Contact Info) Description 03/13/2025 Lab Requisition [facility] [address] [place] [address] Unknown, Provider Social History Tobacco Use Types [...] medical care, and heating? Patient declined 05/31/2024 [facility] - Occupational [...] any time in the past 12 m [facility], were you homeless or living in a jail (including now)? 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 Answer Date of Assessment Author Yes 06/01/2024 12:21 PM TEST DESK TROUBLE LOCATOR Princess Ohara RN * Is person blind or have serious difficulty seeing? Answer Date of Assessment Author No 06/01/2024 12:21 PM TEST DESK TROUBLE LOCATOR Princess Ohara RN * Does person have serious difficulty walking/climbing stairs? Answer Date of Assessment Author Yes 06/01/2024 12:21 PM TEST DESK TROUBLE LOCATOR Princess Ohara RN * Does person have difficulty dressing/bathing? Answer Date of Assessment Author Yes 06/01/2024 12:21 PM TEST DESK TROUBLE LOCATOR Princess Ohara RN * Does person have difficulty doing errands alone? Answer Date of Assessment Author Yes 06/01/2024 12:21 PM TEST DESK TROUBLE LOCATOR Princess Ohara RN documented as of this encounter Mental Status * Does person have difficulty concentrating/remembering/making decisions? Answer Entry Date Author No 06/01/2024 12:21 PM TEST DESK TROUBLE LOCATOR Princess Ohara RN documented in this encounter Plan of Treatment Upcoming Encounters Date Type Department Care Team (Late st Contact Info) Description 05/14/2025 9:00 AM TEST DESK TROUBLE LOCATOR Office Visit [facility] - Urology [address] [facility] [place] [address] Rustam Bernabe PA [address] [place] [address] documented as of this encounter [...] 74 % 03/13/2025 6:26 PM CDT [facility] Lymphocyte % 1(L) 17 - 47 % 03/13/2025 6:26 PM CDT [facility] Monocyte % 7 3 - 11 % 03/13/2025 6:26 PM CDT [facility] Neutrophil Absolute 14.08(H) 1.60 - 7.50 x10E9/L 03/13/2025 6:26 PM CDT [facility] Lymphocyte Absolute 0.15(L) 1.00 - 4.40 x10E9/L 03/13/2025 6:26 PM CDT [facility] Monocyte Absolute 1.07(H) 0.15 - 1.00 x10E9/L 03/13/2025 6:26 PM CDT [facility] RBC Morphology NORMAL 03/13/2025 6:26 PM CDT [facility] Blood BLOOD SPECIMEN / Unknown 03/13/2025 4:40 PM CDT 03/13/2025 5:42 PM CDT us Provider Unknown LAB - HEMATOLOGY ORDERABLES Fin al Result [facility] [address] [place] [address] * (ABNORMAL) COMPREHENSIVE METABOLIC PANEL (03/13/2025 4:40 PM CDT) [facility] Glucose 118(H) 70 - 99 mg/dL 03/13/2025 6:07 PM [facility] Sodium 135(L) 136 - 145 mmol/L 03/13/2025 6:07 PM [facility] Potassium 3.6 3.5 - 5.1 mmol/L 03/13/2025 6:07 PM [facility] Chloride 98 98 - 107 mmol/L 03/13/2025 6:07 PM [facility] CO2 27 22 - 29 mmol/L 03/13/2025 6:07 PM [facility] Calcium 7.7(L) 8.4 - 10.4 mg/dL 03/13/2025 6:07 PM [facility] Anion Gap 10 6 - 16 mmol/L 03/13/2025 6:07 PM [facility] BUN 23 7 - 26 mg/dL 03/13/2025 6:07 PM [facility] Creatinine 0.74 0.72 - 1.25 mg/dL 03/13/2025 6:07 PM [facility] Alkaline Phosphatase 94 40 - 150 U/L 03/13/2025 6:07 PM [facility] ALT 31 6 - 57 U/L 03/13/2025 6:07 PM [facility] AST 39 10 - 48 U/L 03/13/2025 6:07 PM [facility] Protein Total 5.6(L) 6.4 - 8.3 gm/dL 03/13/2025 6:07 PM [facility] Albumin 2.5(L) 3.1 - 4.5 gm/dL 03/13/2025 6:07 PM [facility] Bilirubin Total 0.5 0.2 - 1.2 mg/dL 03/13/2025 6:07 PM [facility] eGFR by CKD-EPI >90 >=90 mL/min/1.7 3 m2 03/13/2025 6:07 PM [facility] Comment:Estimated Glomerular Filtration Rate (eGFR) calculated using the CKD-EPI Creatinine Equation (2020), per the National Kidney Foundation and [place] [employer] of Nephrology recommendations. Blood BLOOD SPECIMEN / Unknown Venipuncture / Unknown 03/13/2025 4:40 PM CDT 03/13/2025 5:42 PM CDT us Provider Unknown LAB - CHEMISTRY ORDERABLES Johanne triny Result [facility] [address] [place] [address] * (ABNORMAL) CBC WITH DIFFERENTIAL (03/13/2025 4:40 PM CDT) WBC 15.3(H) 4.0 - 10.7 x10E9/L 03/13/2025 6:26 PM CDT [facility] RBC Count 2.83(L) 4.30 - 5.80 x10E12/L 03/13/2025 6:26 PM CDT [facility] Hemoglobin 7.9(L) 13.3 - 17.5 g/dL 03/13/2025 6:26 PM CDT [facility] Hematocrit 25.5(L) 38.7 - 51.1 % 03/13/2025 6:26 PM CDT [facility] MCV 90.1 80.0 - 98.0 fL 03/13/2025 6:26 PM CDT [facility] MCH 27.9 26.7 - 33.6 pg 03/13/2025 6:26 PM CDT [facility] MCHC 31.0(L) 31.7 - 36.3 g/dL 03/13/2025 6:26 PM CDT [facility] RDW-CV 15.7(H) 11.3 - 14.8 % 03/13/2025 6:26 PM CDT [facility] Platelet Count 266 150 - 420 x10E9/L 03/13/2025 6:26 PM CDT [facility] MPV 10.8 7.8 - 11.4 fL 03/13/2025 6:26 PM CDT [facility] Blood BLOOD SPECIMEN / Unknown 03/13/2025 4:40 PM CDT 03/13/2025 5:42 PM CDT us Provider Unknown LAB - HEMATOLOGY ORDERABLES Fin al Result [facility] [address] [place] [address] documented in this encounter Visit Diagnoses Not on filedocumented in this encounter Additional Health Concerns Infection Onset Date Last Indicated Resolved Time ESBL GNR 06/01/2024 06/01/2024 documented as of this encounter Care Teams Assembly Machine Tool Setter Relationship Specialty Start Date End Date Rod Strauss MD [address] [place] [id number] PCP - General Internal Medicine 06/15/24 documented as of this encounter
--- OUTSIDE RECORDS SUMMARY | 2025-04-30 15:43 | XMS_ITS | Encounter Summary ---
Author Organization [facility] Address [address] [place] [address] Care Team Providers Care Residential Real Estate Appraiser Name Role Phone Unavailable Primary Care Provider Unavailabl e Encounter Details Date Type Department Care Team (Late st Contact Info) Description 03/10/2006 Outpatient Historical [facility] Adult Hospitalists [address] [address] Rita Esqueda MD 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
--- OUTSIDE RECORDS SUMMARY | 2025-04-30 15:43 | XMS_ITS | Encounter Summary ---
Author Organization [employer] Address 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[employer] Gender Identity Not on file Sexual Orientation [...] ABG ORDERABLES Final Result Performing Organization Address [facility] Phone Number INTERFACE SYSTEM Refer to clinic/hospital [...] ORDERABLES Final Re sult Performing Organization Address [facility] Phone Number INTERFACE SYSTEM Refer to clinic/hospital [...] ORDERABLES Final Re sult Performing Organization Address [facility] Phone Number INTERFACE SYSTEM Refer to clinic/hospital department * MAGNESIUM LEVEL (03/14/2006 4:37 AM CDT) MAGNESIUM 2.0 1.5 - 2.5 mg/dL INTERFACE SYSTEM 03/14/2006 4:37 AM CDT Rita Esqueda MD CHEMISTRY ORDERABLES Final Res ult Performing Organization Address [facility] Phone Number INTERFACE SYSTEM Refer to [...] mmol/L INTERFACE SYSTEM 03/14/2006 4:37 AM CDT [facility]Y ORDERABLES Final Res ult Performing Organization Address [facility] Phone Number INTERFACE SYSTEM Refer to clinic/hospital department * (ABNORMAL) C-REACTIVE PROTEIN (03/14/2006 4:37 AM CDT) CRP 4.1(H) 0.0 - 0.8 mg/dL INTERFACE SYSTEM 03/14/2006 4:37 AM CDT [facility] CHEMISTRY ORDERABLES Final Res ult Performing Organization Address [facility] Phone Number INTERFACE SYSTEM Refer to clinic/hospital department * VANCOMYCIN LEVEL TROUGH (03/13/2006 1:02 PM CDT) VANCOMYCIN, TROUGH 8.7 5.0 - 15.0 ug/mL INTERFACE SYSTEM Comment: Vancomycin Trough Toxic Level= >15.0 ug/mL 03/13/2006 1:02 PM CDT [facility]LES Final Res ult Performing Organization Address [facility] Phone Number INTERFACE SYSTEM Refer to [...] ORDERABLES Final R esult Performing Organization Address [facility] Phone Number INTERFACE SYSTEM Refer to clinic/hospital department * C-REACTIVE PROTEIN, CSF (03/12/2006 3:10 PM CDT) CRP, CSF 0.15 mg/dL INTERFACE SYSTEM Comment: Note: New methodology using CSF CRP (highly sensitive) assay is effective 12/11/03. No reference range has been established for CSF CRP. 03/12/2006 3:10 PM CDT Alexa Dillon MD BODY FLUIDS AND STOOLS Final Result Performing Organization Address [facility] Phone Number INTERFACE SYSTEM Refer to [...] AND STOOLS Final Result Performing Organization Address [facility] Phone Number INTERFACE SYSTEM Refer to clinic/hospital department * (ABNORMAL) TOTAL PROTEIN, CSF (03/12/2006 3:10 PM CDT) PROTEIN, CSF 365(H) 15 - 45 mg/dL INTERFACE SYSTEM Comment: New CSF Protein Quantitative Methodology - Note New Reference Range. bloody sample 03/12/2006 3:10 PM CDT Aman Gottlieb DO BODY FLUIDS AND STOOLS Final Result Performing Organization Address [facility] Phone Number INTERFACE SYSTEM Refer to [...] PM and read back verified. RBC, CSF 747540(H) <=0 /uL INTERFACE SYSTEM 03/12/2006 3:10 PM CDT us Aman Gottlieb DO BODY FLUIDS AND STOOLS Final Result Performing Organization Address [facility] de Phone Number INTERFACE SYSTEM [...] HEMATOLOGY ORDERABLES Final Result Performing Organization Address [facility] de Phone Number INTERFACE SYSTEM [...] HEMATOLOGY ORDERABLES Final Result Performing Organization Address [facility] Phone Number INTERFACE SYSTEM Refer to clinic/hospital [...] ORDERABLES Final R esult Performing Organization Address [facility] de Phone Number INTERFACE SYSTEM [...] HEMATOLOGY ORDERABLES Final Result Performing Organization Address [facility] de Phone Number INTERFACE SYSTEM [...] HEMATOLOGY ORDERABLES Final Result Performing Organization Address [facility] Co de Phone Number INTERFACE SYSTEM Refer to clinic/hospital department * (ABNORMAL) C-REACTIVE PROTEIN (03/11/2006 4:40 AM CDT) CRP 6.5(H) 0.0 - 0.8 mg/dL INTERFACE SYSTEM 03/11/2006 4:40 AM CDT Sushil Arroyo MD CHEMISTRY ORDERABLES Final R [facility] Performing Organization Address [facility] Phone Number INTERFACE SYSTEM Refer to clinic/hospital [...] Arroyo MD [facility]STRY [facility]ABLES [facility] Per[facility] Organization Address [facility] Phone Number INTERFACE SYSTEM Refer to clinic/hospital [...] HEMATOLOGY ORDERABLES Final Result Performing Organization Address [facility] Phone Number INTERFACE SYSTEM Refer to clinic/hospital [...] ORDERABLES Final Resul t Performing Organization Address [facility] de Phone Number INTERFACE SYSTEM [...] HEMATOLOGY ORDERABLES Final Result Performing Organization Address [place]/[facility] de Phone Number INTERFACE SYSTEM [...] SYSTEM 03/10/2006 5:58 PM CDT us Sushil Arryoo MD CHEMISTRY ORDERABLES Final R esult INTERFACE [...] HEMATOLOGY ORDERABLES Final Result Performing Organization Address [facility] de Phone Number INTERFACE SYSTEM [...] ORDERABLES Final Res ult Performing Organization Address [place]/[facility] de Phone Number INTERFACE SYSTEM [...] ORDERABLES Final Res ult Performing Organization Address [facility] Phone Number INTERFACE SYSTEM Refer to clinic/hospital [...] ORDERABLES Final Res ult Performing Organization Address [facility] Phone Number INTERFACE SYSTEM Refer to clinic/hospital department * (ABNORMAL) C-REACTIVE PROTEIN (03/08/2006 6:34 PM CDT) CRP 5.2(H) 0.0 - 0.8 mg/dL INTERFACE SYSTEM 03/08/2006 6:34 PM CDT us Keenan Mandujano MD CHEMISTRY ORDERABLES Final Resu lt Performing Organization Address [facility] Co pr Phone Number INTERFACE SYSTEM Refer to clinic/hospital [...] URINE ORDERABLES Final Result Performing Organization Address [facility] Phone Number INTERFACE SYSTEM Refer to clinic/hospital [...] HEMATOLOGY ORDERABLES Final Result Performing Organization Address [facility] Phone Number INTERFACE SYSTEM Refer to clinic/hospital [...] ORDERABLES Final Resul t Performing Organization Address [facility] Phone Number INTERFACE SYSTEM Refer to clinic/hospital [...] HEMATOLOGY ORDERABLES Final Result Performing Organization Address [facility] Phone Number INTERFACE SYSTEM Refer to clinic/hospital [...] HEMATOLOGY ORDERABLES Final Result Performing Organization Address [place]/[facility] de Phone Number INTERFACE SYSTEM [...] ORDERABLES Final R esult Performing Organization Address [place]/[facility] de Phone Number INTERFACE SYSTEM [...] HEMATOLOGY ORDERABLES Final Result Performing Organization Address [facility] Phone Number INTERFACE SYSTEM Refer to clinic/hospital [...] URINE ORDERABLES Final Result Performing Organization Address [facility] Phone Number INTERFACE SYSTEM Refer to clinic/hospital [...] K/uL INTERFACE SYSTEM 03/02/2006 4:35 AM CDT Ssuhil Arroyo MD HEMATOLOGY ORDERABLES Final Result Performing Organization Address [facility] Phone Number INTERFACE SYSTEM Refer to clinic/hospital [...] HEMATOLOGY ORDERABLES Final Result Performing Organization Address [facility] Phone Number INTERFACE SYSTEM Refer to clinic/hospital [...] ORDERABLES Final R esult Performing Organization Address [facility] de Phone Number INTERFACE SYSTEM [...] HEMATOLOGY ORDERABLES Final Result Performing Organization Address [facility] Phone Number INTERFACE SYSTEM Refer to clinic/hospital [...] HEMATOLOGY ORDERABLES Final Result Performing Organization Address [facility] Co de Phone Number INTERFACE SYSTEM [...] INTERFACE SYSTEM 02/26/2006 12:4 4 PM CDT [facility] HEMATOLOGY ORDERABLES Final Re sult Performing Organization Address [place]/[facility] de Phone Number INTERFACE SYSTEM Refer to clinic/hospital department * C-REACTIVE PROTEIN (02/26/2006 12:44 PM CDT) CRP 0.2 0.0 - 0.8 mg/dL INTERFACE SYSTEM 02/26/2006 12:4 4 PM CD[facility] CHEMISTRY ORDERABLES Final Res ult Performing Organization Address [facility] de Phone Number INTERFACE SYSTEM [...] ORDERABLES Final Res ult Performing Organization Address [facility] Phone Number INTERFACE SYSTEM Refer to clinic/hospital [...] ORDERABLES Final Resul t Performing Organization Address [facility] Phone Number INTERFACE SYSTEM Refer to clinic/hospital [...] K/uL INTERFACE SYSTEM 02/25/2006 4:36 AM CDT [facility] HEMATOLOGY ORDERABLES Final Re sult Performing Organization Address [facility] de Phone Number INTERFACE SYSTEM [...] fL INTERFACE SYSTEM 02/25/2006 4:36 AM CDT [facility] HEMATOLOGY ORDERABLES Final Re sult Performing Organization Address [facility] Phone Number INTERFACE SYSTEM Refer to clinic/hospital [...] SYSTEM 02/25/2006 4:36 AM CDT [facility] Zaid CHEMISTRY ORDERABLES Final Res ult Performing Organization Address [facility] Phone Number INTERFACE SYSTEM Refer to clinic/hospital department * C-REACTIVE PROTEIN (02/25/2006 4:36 AM CDT) CRP 0.2 0.0 - 0.8 mg/dL INTERFACE SYSTEM 02/25/2006 4:36 AM [facility] CHEMISTRY ORDERABLES Final Res ult Performing Organization Address [facility] Phone Number INTERFACE SYSTEM Refer to clinic/hospital [...] URINE ORDERABLES Final Result Performing Organization Address [facility] Phone Number INTERFACE SYSTEM Refer to clinic/hospital [...] HEMATOLOGY ORDERABLES Final Result Performing Organization Address [facility] Phone Number INTERFACE SYSTEM [...] HEMATOLOGY ORDERABLES Final Result Performing Organization Address [facility] Phone Number INTERFACE SYSTEM Refer to clinic/hospital [...] ORDERABLES Final Resul t Performing Organization Address [facility] Phone Number INTERFACE SYSTEM Refer to clinic/hospital [...] HEMATOLOGY ORDERABLES Final Result Performing Organization Address [place]/[facility] Phone Number INTERFACE SYSTEM Refer to clinic/hospital [...] HEMATOLOGY ORDERABLES Final Result Performing Organization Address [facility] de Phone Number INTERFACE SYSTEM [...] ORDERABLES Final Resul t Performing Organization Address [facility] de Phone Number INTERFACE SYSTEM [...] ORDERABLES Final Res ult Performing Organization Address [facility] Phone Number INTERFACE SYSTEM [...] ORDERABLES Final Res ult Performing Organization Address [facility] Phone Number INTERFACE SYSTEM Refer to clinic/hospital [...] HEMATOLOGY ORDERABLES Final Result Performing Organization Address [facility] de Phone Number INTERFACE SYSTEM [...] ORDERABLES Final Res ult Performing Organization Address [facility] Co de Phone Number INTERFACE SYSTEM [...] ORDERABLES Final Res ult Performing Organization Address [place]/[facility] Co de Phone Number INTERFACE SYSTEM [...] HEMATOLOGY ORDERABLES Final Result Performing Organization Address [place]/[facility]/ZIP Co de Phone Number INTERFACE SYSTEM Refer [...] ORDERABLES Final Resul t Performing Organization Address [facility] Phone Number INTERFACE SYSTEM Refer to clinic/hospital [...] HEMATOLOGY ORDERABLES Final Result Performing Organization Address [facility] Phone Number INTERFACE SYSTEM Refer to clinic/hospital [...] HEMATOLOGY ORDERABLES Final Result Performing Organization Address [facility] de Phone Number INTERFACE SYSTEM [...] ORDERABLES Final R esult Performing Organization Address [place]/[facility]/ZIP Co de Phone Number INTERFACE SYSTEM Refer [...] HEMATOLOGY ORDERABLES Final Result Performing Organization Address [place]/[facility] Co de Phone Number INTERFACE SYSTEM [...] ORDERABLES Final Resu lt Performing Organization Address [place]/[facility] de Phone Number INTERFACE SYSTEM [...] ORDERABLES Final Res ult Performing Organization Address [facility] de Phone Number INTERFACE SYSTEM [...] ORDERABLES Final Res ult Performing Organization Address [facility] de Phone Number INTERFACE SYSTEM [...] ORDERABLES Final Res ult Performing Organization Address [facility] Phone Number INTERFACE SYSTEM Refer to clinic/hospital [...] ORDERABLES Final Res t Performing Organization Address [facility] Phone Number INTERFACE SYSTEM Refer to clinic/hospital [...] been established. 01/28/2006 4:52 AM CDT Result [facility] Keenan Mandujano MD HEMATOLOGY ORDERABLES Final [facility] Performing Organization Address [facility] Phone Number INTERFACE SYSTEM Refer to clinic/hospital [...] ORDERABLES Final Res ult Performing Organization Address [facility] Phone Number INTERFACE SYSTEM Refer to clinic/hospital [...] ORDERABLES Final Res ult Performing Organization Address [facility] Phone Number INTERFACE SYSTEM Refer to clinic/hospital [...] ORDERABLES Final Res ult Performing Organization Address [facility] Phone Number INTERFACE SYSTEM [...] been established. 01/23/2006 4:57 AM CDT Result [facility] Keenan Mandujano MD HEMATOLOGY ORDERABLES Final Res ult Performing Organization Address [facility] Phone Number INTERFACE SYSTEM Refer to clinic/hospital [...] ORDERABLES Final Res ult Performing Organization Address [facility] Phone Number INTERFACE SYSTEM Refer to clinic/hospital [...] ORDERABLES Final Resu lt Performing Organization Address [facility] Phone Number INTERFACE SYSTEM Refer to clinic/hospital [...] ORDERABLES Final Res ult Performing Organization Address [facility] Phone Number INTERFACE SYSTEM Refer to clinic/hospital [...] ORDERABLES Final Resu lt Performing Organization Address [facility] Phone Number INTERFACE SYSTEM Refer to clinic/hospital [...] ORDERABLES Final Resu lt Performing Organization Address [place]/[facility] Co de Phone Number INTERFACE SYSTEM [...] HEMATOLOGY ORDERABLES Final Result Performing Organization Address [place]/[facility] Co de Phone Number INTERFACE SYSTEM [...] ORDERABLES Final R esult Performing Organization Address [place]/[facility] Co de Phone Number INTERFACE SYSTEM [...] ORDERABLES Final Resul t Performing Organization Address [place]/[facility]/ZIP Co de Phone Number INTERFACE SYSTEM Refer to clinic/hospital department documented in this encounter Visit Diagnoses Diagnosis Other specified rehabilitation procedure(V57.89)- Primary Other specified rehabilitation procedure documented in this encounter
--- OUTSIDE RECORDS SUMMARY | 2025-04-30 15:43 | XMS_ITS | Clinical Summary ---
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 Identifier Shelf Expiration Date Model / Serial / Lot [employer] Coil Embolization Coated Detachable Helical Concerto [id number] Nylon Vw-2-53-[place] - [id number] Implanted:Qty: 1 on 04/01/2023 at [facility] [employer] 07/22/2025 NV-4-10-HEL IX / / [id number] [employer] Coil Embolization Coated Detachable Helical Concerto [id number] Nylon Mv-5-20-[place] - [id number] Implanted:Qty: 1 on 04/01/2023 at [facility] [employer] 09/23/2025 NV-5-20-HEL IX / / [id number] [employer] Coil Embolization Coated Detachable Helical Concerto [id number] Nylon Zf-9-57-[place] - [id number] Implanted:Qty: 1 on 04/01/2023 at [facility] [employer] 08/27/2025 NV-5-15-HEL IX / / [id number] [employer] Angio-Seal Vip 6fr Closere Device [id number] - [id number] Implanted:Qty: 1 on 04/01/2023 at [facility] [employer] 10/03/2023 [id number] / / [id number] Procedures Procedure Name Priority Date/Time Associated Diagnosis [...] WITHOUT DIFFERENTIAL Routine 03/01/2025 8:02 PM CDT ADMINISTRATIVE DIRECTOR EVALUATE AND TREAT FIBEROPTIC ENDOSCOPIC SWALLOW Routine [...] Computed Tomogra phy 03/14/2025 8:21 PM CDT Addenda Addendum by Lai Costa MD on 04/24/2025 12:45 AM CDT ADDENDUM: This addendum report supersedes the original report dated 03/14/2025 In regards to IVC filter: Recommend assessment of the IVC filter management plan, and if not currently established, nonemergent patient referral to an interventional clinician for further evaluation. END OF ADDENDUM REPORT THIS IS AN ELECTRONICALLY VERIFIED FINAL REPORT 04/24/2025 12:45 AM Addendum Electronically signed by Lai Costa M.D. AR: SANTY Report ID: [id number] Reading Location: [id number] Narrative 03/14/2025 8:31 PM CDT EXAM DESCRIPTION: [...] Lai Costa M.D. AR: SANTY Report ID: [id number] Reading Location: [id number] Procedure Note Lai Costa MD - 03/14/2025 [...] Lai Costa M.D. AR: SANTY Report ID: [id number] Reading Location: [place] [address] Jess [facility] [place] [facility] PROCEDURES Edited Result - Final * eGFR (03/14/2025 6:17 PM CDT) eGFR [...] LAZAR LAB BLOOD ORDERABLES Final Resu lt [facility] ([place]) 1 [facility] Department [place] [address] * (ABNORMAL) Differential, auto (03/14/2025 6:17 PM [...] revised on 2017. Monocyte pct 12.9 % [facility] ([place]) Comment: Interpretive Data Percent cell [...] revised on 2017. Basophil pct 0.2 % [facility] ([place]) Comment: Interpretive Data Percent cell count reference ranges are not reported, since discordance with absolute values may lead to misinterpretation of CBC data. Current Interpretive Data was last revised on 2017. Blood 03/14/2025 6:17 PM CDT 03/14/2025 6:21 PM CDT us Jess LAZAR LAB BLOOD ORDERABLES Final Resu lt GIGI MAXWELL ([place]) 1 [facility] Department [place] [address] * (ABNORMAL) Urinalysis reflex to microscopic and culture Urine, indwelling catheter (03/14/2025 6:17PM CDT) Color, ur Yellow Yellow Clarity, ur Turbid(A) Clear GIGI Ceja ([place]) Specific gravity, ur 1.016 1.003 - 1.030 [facility] ([place]) pH, urine 5.5 [facility] ([place]) Comment: Interpretive Data U rine pH is affected by diet, medications, systemic acid-base disturbances, and renal tubular function. pH may affect urinary stone formation. For example, urine pH below 6.0 may help reduce the tendency for calcium phosphate stones and pH greater than 6.0 may reduce the tendency for uric acid stone formation. Source: [facility] Current Interpretive Data was last revised on [...] us Jess LAZAR LAB MICROBIOLOGY - GENERAL ANTONIO WALKER Final Result [facility] ([place]) [facility] Department [place] [address] * (ABNORMAL) CBC with auto differential (03/14/2025 [...] RDW CV 15.6(H) 11.1 - 14.9 % [facility] RDW SD 50.9(H) 35.7 - 48.1 fL [facility] ([place]) NRBC abs 0.00 0.00 - 0.01 K/cumm [facility] ([place] Blood 03/14/2025 6:17 PM CDT 03/14/2025 6:21 PM CDT Jess LAZAR LAB BLOOD ORDERABLES Final Resu lt Performing Organization Address City/[facility]/ZIP Co de Phone Number [facility] ([place]) 1 [facility] [place] [address] * (ABNORMAL) Urinalysis, microscopic only (03/14/2025 6:17 PM CDT) WBC, ur >50(A) 0 - 5 /HPF RBC, ur 6-10(A) 0 - 2 /HPF [facility] ([place]) Epithelial cells, squamous, ur 1-5 0 - 5 /HPF [facility] ([place]) Bacteria, ur Trace(A) [facility] ([place] Mucous, ur Present(A) GIGI A ([place]) Culture Reflex Comment Reflex to urine culture will be performed. [facility] ([place]) Urine, indwelling catheter 03/14/2025 6:17 PM CDT 03/14/2025 6:21 PM CDT Jess LAZAR LAB URINE ORDERABLES Final Resu lt Performing Organization Address City/[facility]/ZIP Co de Phone Number [facility] MAXWELL ([place]) 1 [facility] [place] [address] * (ABNORMAL) Urine culture Urine, indwelling catheter (03/14/2025 6:17 PM CDT) Report Final Report: Greater than or equal to 100,000 colonies/mL of Staphylococcus aureus Methicillin resistant (MRSA) by penicillin binding protein 2a (PBP2a) testing. Plus growth of clinically insignificant bacterial sandra. (.) Comment:Testing performed by : [facility] [address] [facility], [place]., [address] Organism STAPHYLOCOCCUS AUREUS [facility] ([place]) Organism PLUS GROWTH OF CLINICALLY INSIGNIFICANT SANDRA. [facility] ([place]) Urine, indwelling catheter 03/14/2025 6:17 PM CDT 03/14/2025 9:57 PM CDT Narrative [facility] ([place]) - 03/17/2025 2:55 PM CDT Urine culture reflexed based upon urinalysis results. Testing performed by [facility] Microbiology Laboratory ([phone]) Organism Antibiotic Method Susceptibility Staphylococcus aureus Vancomycin INTERPRETATION Susceptible Staphylococcus aureus Ceftaroline INTERPRETATION Susceptible Staphylococcus aureus Trimethoprim with Sulfamethoxazole INTERPRETATION Susceptible Staphylococcus aureus Linezolid INTERPRETATION Susceptible Staphylococcus aureus Doxycycline INTERPRETATION Susceptible Staphylococcus aureus Nitrofurantoin INTERPRETATION Susceptible Staphylococcus aureus Oxacillin INTERPRETATION Resistant Staphylococcus aureus Cefazolin INTERPRETATION Resistant Staphylococcus aureus Ceftriaxone INTERPRETATION Resistant Jess LAZAR LAB MICROBIOLOGY - GENERAL ANTONIO WALKER Final Result [facility] ([place]) 1 [facility] Department [place] [address] * (ABNORMAL) Comprehensive metabolic panel (03/14/2025 6:17 [...] BLOOD ORDERABLES Final Resu lt [facility]IGI MAXWELL ([place]) 1 [facility] Department [place] [address] * Antibody identification (03/05/2025 12:31 AM CDT) Pathologist [facility] Antibody ID 1 Anti Little e Blood 03/05/2025 12:3 1 AM CDT 03/05/2025 12:32 AM CDT us Marilyn Morgan MD LAB BLOOD BANK TEST ORDERABLES F inal Result GIGI [facility] Department [place] [address] * eGFR (03/04/2025 11:12 PM CDT) eGFR [...] CDT 03/04/2025 11:33 PM CDT Lucy Ho SHRINK PIT SUPERVISOR LAB BLOOD ORDERABLES Fin al Result [facility] Department [place] [address] * (ABNORMAL) CBC without differential (03/04/2025 11:12 PM CDT) WBC 11.79(H) 3.80 - 9.90 K/cumm Hgb 9.1(L) 13.0 - 17.5 g/dL [facility] Hct 29.9(L) 38.9 - 50.3 % [facility] Plt 267 150 - 400 K/cumm [facility] MPV 10.2 9.1 - 12.3 fL [facility] RBC 3.30(L) 4.30 - 5.80 M/cumm [facility] MCV 90.6 81.3 - 96.4 fL [facility] MCH 27.6 27.1 - 33.3 pg [facility] MCHC 30.4(L) 32.3 - 35.7 g/dL [facility] RDW CV 15.9(H) 11.1 - 14.9 % [facility] RDW SD 51.3(H) 35.7 - 48.1 fL [facility] NRBC abs 0.00 0.00 - 0.01 K/cumm [facility] Blood 03/04/2025 11:1 2 PM CDT 03/04/2025 11:33 PM CDT Lucy Ho SHRINK PIT SUPERVISOR LAB BLOOD ORDERABLES Fin al Result Performing Organization Address [facility] Co de Phone Number [facility] Department [place] [address] * (ABNORMAL) Type and screen (03/04/2025 11:12 PM CDT) Pathologist [facility] ABO Rh O Positive Bonifacio, indirect Positive(A) [facility] Blood 03/04/2025 11:1 2 PM CDT 03/04/2025 11:23 PM CDT Narrative [facility] - 03/05/2025 12:32 AM CDT Has the patient had Daratumumab or Isatuximab in the past 6 months?->Unknown Marilyn Morgan MD LAB BLOOD BANK TEST ORDERABLES F inal Result Performing Organization Address [facility] de Phone Number [facility] Department [place] [address] * (ABNORMAL) Basic metabolic panel (03/04/2025 11:12 PM CDT) Sodium 142 135 - 145 mmol/L Potassium, pl 4.2 3.3 - 4.9 mmol/L [facility] Chloride 100 97 - 110 mmol/L [facility] CO2 35(H) 22 - 32 mmol/L [facility] Anion gap 7 2 - 15 mmol/L [facility] BUN 12 6 - 25 mg/dL [facility] Creatinine 0.81 0.80 - 1.30 mg/dL [facility] Glucose 105 70 - 199 mg/dL [facility] Comment: Interpretive Data Fasting glucose >/= [...] 2022. Calcium 8.8 8.5 - 10.3 mg/dL [facility] Blood 03/04/2025 11:1 2 PM CDT 03/04/2025 11:33 PM CDT us Lucy Ho NP LAB BLOOD ORDERABLES Fin al Result [facility] Department [place] [address] * eGFR (03/03/2025 10:44 PM CDT) eGFR [...] CDT 03/03/2025 11:34 PM CDT Lucy Ho SHRINK PIT SUPERVISOR LAB BLOOD ORDERABLES Fin al Result Performing Organization Address [facility] Co de Phone Number [facility] Department [place] [address] * (ABNORMAL) CBC without differential (03/03/2025 10:44 PM CDT) Pathologist [facility] WBC 9.58 3.80 - 9.90 K/cumm Hgb 8.3(L) 13.0 - 17.5 g/dL [facility] Hct 26.4(L) 38.9 - 50.3 % [facility] Plt 263 150 - 400 K/cumm [facility] MPV 10.4 9.1 - 12.3 fL [facility] RBC 2.97(L) 4.30 - 5.80 M/cumm [facility] MCV 88.9 81.3 - 96.4 fL [facility] MCH 27.9 27.1 - 33.3 pg [facility] MCHC 31.4(L) 32.3 - 35.7 g/dL [facility] RDW CV 15.5(H) 11.1 - 14.9 % [facility] RDW SD 49.8(H) 35.7 - 48.1 fL [facility] NRBC abs 0.00 0.00 - 0.01 K/cumm [facility] Blood 03/03/2025 10:4 4 PM CDT 03/03/2025 11:34 PM CDT Lucy Ho NP LAB BLOOD ORDERABLES Fin al Result Performing Organization Address [facility] Co de Phone Number [facility] Department [place] [address] * Phosphorus (03/03/2025 10:44 PM CDT) Pathologist [facility] Phosphorus, pl 3.5 2.3 - 4.5 mg/dL Blood 03/03/2025 10:4 4 PM CDT 03/03/2025 11:33 PM CDT Lucy Ho SHRINK PIT SUPERVISOR LAB BLOOD ORDERABLES Fin al Result Performing Organization Address City/[facility]/ZIP Co de Phone Number [facility] Department [place] [address] * Magnesium (03/03/2025 10:44 PM CDT) [facility] Magnesium 2.3 1.4 - 2.5 mg/dL Blood 03/03/2025 10:4 4 PM CDT 03/03/2025 11:33 PM CDT Lucy Ho SHRINK PIT SUPERVISOR LAB BLOOD ORDERABLES Fin al Result Performing Organization Address [facility]/[place] de Phone Number [facility] Department [place] [address] * (ABNORMAL) Basic metabolic panel (03/03/2025 10:44 PM CDT) [facility] Sodium 142 135 - 145 mmol/L Potassium, pl 4.3 3.3 - 4.9 mmol/L [facility] Chloride 101 97 - 110 mmol/L [facility] CO2 35(H) 22 - 32 mmol/L [facility] Anion gap 6 2 - 15 mmol/L [facility] BUN 10 6 - 25 mg/dL [facility] Creatinine 0.77(L) 0.80 - 1.30 mg/dL [facility] Glucose 99 70 - 199 mg/dL [facility] Comment: Interpretive Data Fasting glucose >/= [...] 2022. Calcium 8.6 8.5 - 10.3 mg/dL [facility] Blood 03/03/2025 10:4 4 PM CDT 03/03/2025 11:34 PM CDT Lucy Ho NP LAB BLOOD ORDERABLES Fin al Result Performing Organization Address [facility] Co de Phone Number [facility] Department [place] [address] * eGFR (03/02/2025 11:52 PM CDT) eGFR >90 >=60 mL/min/1. 73 [...] ORDERABLES Fin al Result Performing Organization Address [facility] Co de Phone Number [facility] Department [place] [address] * (ABNORMAL) CBC without differential (03/02/2025 11:52 PM CDT) Pathologist [facility] WBC 11.35(H) 3.80 - 9.90 K/cumm Hgb 8.1(L) 13.0 - 17.5 g/dL [facility] Hct 26.9(L) 38.9 - 50.3 % [facility] Plt 230 150 - 400 K/cumm [facility] MPV 10.4 9.1 - 12.3 fL [facility] RBC 2.90(L) 4.30 - 5.80 M/cumm [facility] MCV 92.8 81.3 - 96.4 fL [facility] MCH 27.9 27.1 - 33.3 pg [facility] MCHC 30.1(L) 32.3 - 35.7 g/dL [facility] RDW CV 15.5(H) 11.1 - 14.9 % [facility] RDW SD 52.4(H) 35.7 - 48.1 fL [facility] NRBC abs 0.00 0.00 - 0.01 K/cumm [facility] Blood 03/02/2025 11:5 2 PM CDT 03/03/2025 12:07 AM CDT Lucy Ho SHRINK PIT SUPERVISOR LAB BLOOD ORDERABLES Fin al Result [facility] Department [place] [address] * (ABNORMAL) CBC without differential (03/02/2025 11:52 PM CDT) Pathologist [facility] WBC 11.11(H) 3.80 - 9.90 K/cumm Hgb 8.0(L) 13.0 - 17.5 g/dL [facility] Hct 26.9(L) 38.9 - 50.3 % [facility] Plt 233 150 - 400 K/cumm [facility] MPV 10.4 9.1 - 12.3 fL [facility] RBC 2.91(L) 4.30 - 5.80 M/cumm [facility] MCV 92.4 81.3 - 96.4 fL [facility] MCH 27.5 27.1 - 33.3 pg [facility] MCHC 29.7(L) 32.3 - 35.7 g/dL [facility] RDW CV 15.5(H) 11.1 - 14.9 % [facility] RDW SD 51.9(H) 35.7 - 48.1 fL [facility] NRBC abs 0.00 0.00 - 0.01 K/cumm [facility] Blood 03/02/2025 11:5 2 PM CDT 03/03/2025 12:08 AM CDT Lucy Ho SHRINK PIT SUPERVISOR LAB BLOOD ORDERABLES Fin al Result Performing Organization Address [facility] de Phone Number [facility] Department [place] [address] * Phosphorus (03/02/2025 11:52 PM CDT) Phosphorus, pl 3.3 2.3 - 4.5 mg/dL Blood 03/02/2025 11:5 2 PM CDT 03/03/2025 12:08 AM CDT Lucy Ho SHRINK PIT SUPERVISOR LAB BLOOD ORDERABLES Fin al Result Performing Organization Address [facility] de Phone Number [facility] Department [place] [address] * Magnesium (03/02/2025 11:52 PM CDT) Magnesium 2.2 1.4 - 2.5 mg/dL Blood 03/02/2025 11:5 2 PM CDT 03/03/2025 12:08 AM CDT Lucy Ho NP LAB BLOOD ORDERABLES Fin al Result Performing Organization Address [facility] de Phone Number [facility] Department [place] [address] * (ABNORMAL) Basic metabolic panel (03/02/2025 11:52 PM CDT) Sodium 142 135 - 145 mmol/L Potassium, pl 4.2 3.3 - 4.9 mmol/L [facility] Chloride 101 97 - 110 mmol/L [facility] CO2 36(H) 22 - 32 mmol/L [facility] Anion gap 5 2 - 15 mmol/L [facility] BUN 11 6 - 25 mg/dL [facility] Creatinine 0.71(L) 0.80 - 1.30 mg/dL [facility] Glucose 101 70 - 199 mg/dL [facility] Comment: Interpretive Data Fasting glucose >/= [...] 2022. Calcium 8.5 8.5 - 10.3 mg/dL [facility] Blood 03/02/2025 11:5 2 PM CDT 03/03/2025 12:08 AM CDT us Lucy Ho NP LAB BLOOD ORDERABLES Fin al Result [facility] Department [place] [address] * US Vein Duplex Lower Extremity Bilateral Complete (03/02/2025 4:55 PM CDT) Anatomical Region Laterality Modality Vascular Bilateral Ultrasound 03/02/2025 4:23 PM CDT Narrative 03/02/2025 6:14 PM CDT [facility] - Department of Vascular Surgery, Vascular Laboratory [address] [place] [id number] Lower Extremity Venous Ultrasound Report Patient Name: JEROME ASKEW : 1950 (74y 11m) Study Date: 03/02/2025 4:23:44 PM Gender: M Tech: Location: [id number] Ref Provider: LIZA TRAYLOR Quality: Adequate Order [...] INDICATIONS: Swelling lower extremity, bilateral. FINDINGS: Performing Printing Mechanist: Mariaelena Gill RVT. Bilateral: Venous Doppler signals [...] above. Electronically Signed By: Pritesh Contreras MD [facility] [phone] 03/02/2025 5:36:36 PM CDT Procedure Note Pritesh Contreras MD - 03/02/2025 [facility] [employer] - Department of Vascular Surgery,Vascular Laboratory [address] [place] [address] Lower Extremity Venous Ultrasound Report Patient Name: JEROME ASKEW : 1950 (74y 11m) Study Date: 03/02/2025 4:23:44 PM Gender: M Tech: Location: [id number] Ref Provider: LIZA TRAYLOR Quality: Adequate Order Provider: LIZA TRAYLOR PROCEDURES: Vascular Report: Venous Duplex imaging was performed bilaterally in the lower extremities.The common femoral, femoral, popliteal, posterior tibial, peroneal veins wereevaluated for patency, spontaneity and phasicity with Doppler, compression and augmentationmaneuvers. Great saphenous vein proximal at the junction was evaluated with compressionmaneuvers. INDICATIONS: Swelling lower extremity, bilateral. FINDINGS: Performing Printing Mechanist: Mariaelena Gill RVT. Bilateral: Venous Doppler signals [...] above. Electronically Signed By: Pritesh Contreras MD [facility] [phone] 03/02/2025 5:36:36 PM CDT Liza Traylor MD [facility] PROCEDURES Final Result * (ABNORMAL) POC Blood Gas and Chemistries, Venous - (03/02/2025 1:56 PM CDT) pH, Cas POC 7.40 7.32 - 7.43 pCO2, cas POC 61(H) 40 - 50 mmHg [facility] pO2, cas POC 42 mmHg [facility] Na, POC 142 135 - 145 mmol/L [facility] K POC 4.2 3.3 - 4.9 mmol/L [facility] Comment: Interpretive Data Not all point of care methods assess for hemolysis. Confirm with instrument and retest K+ if not consistent with clinical signs and symptoms. Current Interpretive Data was last revised on 2023. Cl, POC 108 97 - 110 mmol/L [facility] Ionized Ca, POC 4.59 4.50 - 5.10 mg/dL [facility] Glucose, POC 100 70 - 199 mg/dL [facility] Lactate POC 1.0 0.7 - 2.0 mmol/L [facility] O2 Sat, Cas POC ([place]) 71 % [facility] Base excess, POC 11.5 mmol/L [facility] HCO3, Cas POC 38(H) 20 - 30 mmol/L [facility] Hct, POC 24.0(L) 41.4 - 51.6 % [facility] Total Hb, POC 8.0(L) 13.8 - 17.2 g/dL [facility] Blood 03/02/2025 1:56 PM CDT 03/02/2025 1:56 PM CDT us Liza Traylor MD LAB POCT ORDERABLES - DE VICE Final Result [facility] Department [place] [address] * (ABNORMAL) Tissue aerobic and anaerobic culture and gram stain Tissue Buttocks (03/02/2025 11:43 AMCDT) Direct Specimen Exam Stain: No polymorphonuclear leukocytes seen. Abundant Gram Variable Bacilli Abundant Gram Positive Cocci Report Final Report: Few Mixed aerobic and anaerobic microorganisms Includes the following: Few Bacteroides fragilis (.) [facility] Organism MIXED AEROBIC AND ANAEROBIC MICROORGANISMS [facility] Organism BACTEROIDES FRAGILIS [facility] Tissue (Buttocks) 03/02/2025 11:43 AM CDT 03/02/2025 2:05 PM CDT Narrative [facility] - 03/05/2025 1:23 PM CDT Deep tissue left buttocks wound Testing performed by [facility] Microbiology Laboratory ([phone]) Specimens submitted from normally sterile body sites [...] MICROBIOLOGY - G ENERAL ORDERABLES Final Result [facility] Department [place] [address] * Continuous Video EEG (03/02/2025 9:46 AM CDT) Anatomical Region Laterality Modality EEG Narrative 03/02/2025 10:16 AM CDT Video-EEG Report Patient Name: Jerome Askew [facility] Medical Record Number (MRN): [id number] [employer] Record: [id number] Date of (): 1950 Ordering Provider: Colin [...] digital EEG were recorded continuously with a [employer] EEG acquisition system. This was a 32 [...] AM CDT Narrative 03/02/2025 9:[address] [facility] [place] [address] Transthoracic Echocardiographic Report Patient Name: JEROME ASKEW R : 1950 (74y 11m) Sex: M Study Date: 03/02/2025 07:44:43 AM Ht(Inch): 75 Wt(Lb): 179.01 BSA: 2.07 Printing Mechanist: Ale Alexander Location: [id number] Order Provider: MARILYN MORGAN Heart Rate: 73 [...] Procedure Note Cristóbal May MD - 03/02/[address] [facility] [place] [address] Transthoracic Echocardiographic Report Patient Name: JEROME ASKEW R : 1950 (74y 11m) Sex: M Study Date: 03/02/2025 07:44:43 AM Ht(Inch): 75 Wt(Lb): 179.01 BSA: 2.07 Printing Mechanist: Ale Alexander Location: [id number] Order Provider:MARILYN MORGAN Heart Rate: 73 BMI: [...] 119.30 ml [ 62.00 - 150.00 ] ELO VTI4.52 cm2 LV EDV Index 57.55 ml/m2 [...] LA Length 4C 6.49 cm MV Decel Fvfb068.48 msec [ 104.00 - 258.00 ] LA [...] cm [ 1.71 - 5.00 ] RA Gsfcdq09.63 ml RA Volume Index16.71 ml/m2 IVC Diam2.11 [...] Units (03/02/2025 8:19 AM CDT) Product code [id number] [facility] Unit Number [id number] 8-U [facility] Product Blood Type OPOS [facility] Dispense Status RETURNED [facility] Product code [id number] Unit Number [id number] 3-F [facility] Product Blood Type OPOS [facility] [facility] Dispense Status RETURNED [facility] Blood 03/02/2025 8:19 AM CDT 03/02/2025 8:19 AM CDT Narrative [facility] - 03/05/2025 12:08 AM CDT Are special requirements needed? 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 with TNK [...] BLOOD BANK TEST ORDERABLES F inal Result [facility] Department [place] [address] * eGFR (03/01/2025 8:02 PM CDT) eGFR [...] ORDERABLES Fin al Result Performing Organization Address [facility] de Phone Number [facility] [place] [address] * aPTT (03/01/2025 8:02 PM CDT) aPTT [...] ORDERABLES Final Resul t Performing Organization Address [facility] de Phone Number [facility] [place] [address] * Protime-INR (03/01/2025 8:02 PM CDT) PT 13.4 10.2 - 13.5 sec INR 1.19 0.90 - 1.20 [facility] Comment: Interpretive data Oral anticoagulant therapeutic ranges: Venous thromboembolism prophylaxis or treatment: 2.0-3.0 CARDIOLOGY Standard range: 2.0-3.0 High-intensity range: 2.5-3.5 Refer to indication-specific guidelines for appropriate target ranges for prosthetic heart valve replacement. Current interpretive data was last revised on 2019. Blood 03/01/2025 8:02 PM CDT 03/01/2025 8:38 PM CDT us Mrailyn Morgan MD LAB BLOOD ORDERABLES Final Resul t Performing Organization Address [facility] Co de Phone Number [facility] Department [place] [address] * (ABNORMAL) CBC without differential (03/01/2025 8:02 PM CDT) Pathologist [facility] WBC 8.66 3.80 - 9.90 K/cumm Hgb 7.8(L) 13.0 - 17.5 g/dL [facility] Hct 25.9(L) 38.9 - 50.3 % [facility] Plt 200 150 - 400 K/cumm [facility] MPV 10.6 9.1 - 12.3 fL [facility] RBC 2.82(L) 4.30 - 5.80 M/cumm [facility] MCV 91.8 81.3 - 96.4 fL [facility] MCH 27.7 27.1 - 33.3 pg [facility] MCHC 30.1(L) 32.3 - 35.7 g/dL [facility] RDW CV 15.5(H) 11.1 - 14.9 % [facility] RDW SD 52.6(H) 35.7 - 48.1 fL [facility] NRBC abs 0.00 0.00 - 0.01 K/cumm [facility] Blood 03/01/2025 8:02 PM CDT 03/01/2025 8:27 PM CDT us Lucy Ho NP LAB BLOOD ORDERABLES Fin al Result Performing Organization Address [facility]/ZIP Co de Phone Number [facility] Department [place] [address] * (ABNORMAL) Type and screen (03/01/2025 8:02 PM CDT) Bonifacio, indirect Positive(A) ABO Rh O Positive [facility] Blood 03/01/2025 8:02 PM CDT 03/01/2025 8:26 PM CDT Narrative [facility] - 03/01/2025 9:23 PM CDT Has the patient had Daratumumab or Isatuximab in the past 6 months?->Unknown Marilyn Morgan MD LAB BLOOD BANK TEST ORDERABLES F inal Result Performing Organization Address [facility] Co de Phone Number [facility] Department [place] [address] * (ABNORMAL) Basic metabolic panel (03/01/2025 8:02 PM CDT) Sodium 146(H) 135 - 145 mmol/L Potassium, pl 4.4 3.3 - 4.9 mmol/L [facility] Chloride 106 97 - 110 mmol/L [facility] CO2 34(H) 22 - 32 mmol/L [facility] Anion gap 6 2 - 15 mmol/L [facility] BUN 13 6 - 25 mg/dL [facility] Creatinine 0.72(L) 0.80 - 1.30 mg/dL [facility] Glucose 134 70 - 199 mg/dL [facility] Comment: Interpretive Data Fasting glucose >/= [...] 2022. Calcium 7.9(L) 8.5 - 10.3 mg/dL [facility] Blood 03/01/2025 8:02 PM CDT 03/01/2025 8:27 PM CDT Lucy Ho NP LAB BLOOD ORDERABLES Fin al Result Performing Organization Address [facility]/ZIP Co de Phone Number [facility] Department [place] [address] * ADMINISTRATIVE DIRECTOR Evaluate and Treat (FEES) (03/01/2025 11:34 AM CDT) Harris DAVIS - 03/01/2025 11:34 AM CDT Zohreh Petersen [...] diet/thin liquids General Information Jerome Askew 03/01/25 ADMINISTRATIVE DIRECTOR Received On: 03/01/25 General Observations: Pt seen sitting upright in bed, alert, cooperative, able to follow simple commands. Pain Score: 0 If pain >4, was RN notified? N/A Patient Stated Goal/Comments: Pt did not state any ST related goals/comments. Clinical Impression & Professional Recommendations Diet Solids Recommendation: Dysphagia diet-Soft (tender/chopped meat) Diet Liquids Recommendations: [place] thick (No ice in drinks, no ice [...] deficits Secretions: Minimal Consistencies Administered: Thin liquids, [place] thick liquids, Purees, Solids Thin Liquids: Laryngeal Penetration: Present Aspiration Present: Yes Timing: Before Amount: Moderate Response to aspiration: None Cough: Non-productive Unsuccessful Modifications: Chin tuck, Repeat swallow, Cough Penetration Aspiration Scale-Thin: 8-Material enters the airway, passes below the vocal folds and no effort is made to eject [place] Scale-Vallecular Residue-Thin Liquids: Mild [place] Scale-Pyriform Sinus Residue-Thin Liquids: Mild [place] Thickened Liquids: Laryngeal Penetration: None Aspiration Present: No Penetration Aspiration Scale-[place]: 1-Material does not enter airway Noemí Scale-Vallecular Residue-[place] Thickened Liquids: Mild [place] Scale-Pyriform Sinus Residue-[place] Thickened Liquids: Mild Purees: Laryngeal Penetration: None Aspiration Present: No Successful Modifications: Alternated liquids and solids Penetration Aspiration Scale-Puree: 1-Material does not enter airway [place] Scale-Vallecular Residue-Puree: Moderate Noemí Scale-Pyriform Sinus Residue-Puree: Mild Solids: Laryngeal Penetration: None Aspiration Present: No Successful Modifications: Alternated liquids and solids Penetration Aspiration Scale-Solids: 1-Material does not enter airway [place] Scale-Vallecular Residue-Solids: Moderate [place] Scale-Pyriform Sinus Residue-Solids: Mild Dysphagia Outcome and Severity Scale: Dysphagia Outcomes and Severity Scale: 3 Moderate dysphagia Levels 1 & 2 on the PATRICK indicate need for nonoral nutrition. Treatment Treatment was not provided this date. Please reference care plan for treatment goals and details, if indicated. Plan ADMINISTRATIVE DIRECTOR Frequency of Services during current admission: 2-3x/wk ADMINISTRATIVE DIRECTOR Recommendation (Add'l Services): Jail Facility Next Visit Plan:treatment/therapy Additional Referrals: PT/OT Discharge Summary Statement If this is the last swallow therapy visit, this serves as the discharge summary. us Marilyn Morgan MD ADMINISTRATIVE DIRECTOR ORDERABLES Final Result [facility] * (ABNORMAL) CBC without differential (03/01/2025 5:45 AM CDT) WBC 10.25(H) 3.80 - 9.90 K/cumm Hgb 8.7(L) 13.0 - 17.5 g/dL [facility] Hct 28.1(L) 38.9 - 50.3 % [facility] Plt 226 150 - 400 K/cumm [facility] MPV 10.6 9.1 - 12.3 fL [facility] RBC 3.12(L) 4.30 - 5.80 M/cumm [facility] MCV 90.1 81.3 - 96.4 fL [facility] MCH 27.9 27.1 - 33.3 pg [facility] MCHC 31.0(L) 32.3 - 35.7 g/dL [facility] RDW CV 15.4(H) 11.1 - 14.9 % [facility] RDW SD 50.7(H) 35.7 - 48.1 fL [facility] NRBC abs 0.00 0.00 - 0.01 K/cumm [facility] Blood 03/01/2025 5:45 AM CDT 03/01/2025 6:01 AM CDT us Lucy Ho NP LAB BLOOD ORDERABLES Fin al Result [facility] Department [place] [address] * CT Head WO Contrast (03/01/2025 5:22 [...] ur Straw Yellow Clarity, ur Clear Clear [facility] Specific gravity, ur >1.042(H) 1.003 - 1.[address] [facility] pH, urine 6.0 [facility] Comment: Interpretive Data U rine pH is affected by diet, medications, systemic acid-base disturbances, and renal tubular function. pH may affect urinary stone formation. For example, urine pH below 6.0 may help reduce the tendency for calcium phosphate stones and pH greater than 6.0 may reduce the tendency for uric acid stone formation. Source: [facility] Current Interpretive Data was last revised on 2017 Protein, ur ql Trace Negative [facility] Glucose, ur ql Negative Negative [facility] Ketones, ur Negative Negative [facility] Bilirubin, ur Negative Negative [facility] Blood, ur Negative Negative [facility] Urobilinogen, ur <2.0 <2.0 mg/dL [facility] Nitrite, ur Negative Negative [facility] Leukocyte esterase, ur Negative Negative [facility] UA reflex comment Reflex conditions for microscopic UA and culture not met. [facility] Urine, indwelling catheter 03/01/2025 3:09 AM CDT 03/01/2025 3:35 AM CDT Lucy Ho NP LAB MICROBIOLOGY - GENER AL ORDERABLES Final Result [facility] Department [place] [address] * Respiratory pathogen panel Nasopharyngeal (03/01/2025 3:09 AM CDT) Pathologist [facility] Influenza A RNA Not Detected Not Detected Influenza B RNA Not Detected Not Detected [facility] RSV RNA Not Detected Not Detected [facility] COVID-19 RNA Not Detected Not Detected [facility] Coronavirus 229E RNA Not Detected Not Detected [facility] Coronavirus HKU1 RNA Not Detected Not Detected [facility] Coronavirus NL63 RNA Not Detected Not Detected [facility] Coronavirus OC43 RNA Not Detected Not Detected [facility] Adenovirus DNA Not Detected Not Detected [facility] Metapneumovirus RNA Not Detected Not Detected [facility] Rhinovirus/Enterov irus RNA Not Detected Not Detected [facility] Parainfluenza 1 RNA Not Detected Not Detected [facility] Parainfluenza 2 RNA Not Detected Not Detected [facility] Parainfluenza 3 RNA Not Detected Not Detected [facility] Parainfluenza 4 RNA Not Detected Not Detected [facility] B. pertussis DNA Not Detected Not Detected [facility] B. parapertussis DNA Not Detected Not Detected [facility] C. pneumoniae DNA Not Detected Not Detected [facility] M. pneumoniae DNA Not Detected Not Detected [facility] Nasopharyngeal 03/01/2025 3: 09 AM CDT 03/01/2025 3:44 AM CDT Narrative [facility] - 03/01/2025 4:42 AM CDT Is the Patient experiencing symptoms consistent with COVID?->No Surveillance testing for transplant patient?->No Interpretive Data The Tagasauris FilmArray Respiratory Panel (RP2.1) assay is a [...] assay has FDA clearance for testing of SHRINK PIT SUPERVISOR swabs. The performance of additional specimen types has been assessed by the performing laboratory. The performance characteristics of this assay have been determined by [facility] Molecular Infectious Disease Laboratory. Current interpretive data was last revised on 22. Lucy Ho NP LAB MICROBIOLOGY - GENER AL ORDERABLES Final Result [facility] Department [place] [address] * Blood culture Blood (03/01/2025 3:09 AM CDT) Report Final Report: No growth Blood 03/01/2025 3:09 AM CDT 03/01/2025 3:37 AM CDT Narrative [facility] - 03/05/2025 7:00 AM CDT Collection->Peripheral 1. [...] performance characteristics have been verified by the [facility] Microbiology Laboratory. For questions about this culture, contact the Microbiology Laboratory at [phone]. Interpretive data was last revised on 24. Lucy Ho NP LAB MICROBIOLOGY - GENER AL ORDERABLES Final Result [facility] Department [place] [address] * Blood culture Blood (03/01/2025 3:09 AM [...] performance characteristics have been verified by the [facility] Microbiology Laboratory. For questions about this culture, contact the Microbiology Laboratory at [phone]. Interpretive data was last revised on 24. Lucy Ho NP LAB MICROBIOLOGY - GENER AL ORDERABLES Final Result Performing Organization Address [facility]/ZIP Co de Phone Number [facility] Department [place] [address] * Antibody identification (02/28/2025 8:47 PM CDT) Antibody ID 1 Anti Little e Blood 02/28/2025 8:47 PM CDT 02/28/2025 8:47 PM CDT Lucy Ho NP LAB BLOOD BANK TEST ORDE AARON Final Result Performing Organization Address [facility] Co de Phone Number [facility] Department [place] [address] * ECG 12 lead (02/28/2025 8:02 PM CDT) Pathologist [facility] Ventricular Rate EKG/Min 63 BPM [facility] Atrial Rate 63 BPM [facility] IN-Interval (MSEC) 218 ms [facility] QRS-Interval (MSEC) 92 ms [facility] QT-Interval (MSEC) 398 ms [facility] QTc 407 ms [facility] P Vivian 49 degrees [facility] R Vivian -25 degrees [facility] T Vivian 10 degrees [facility] Diagnosis Sinus rhythm with 1st degree A-V block Minimal voltage criteria for LVH, may be normal variant Borderline ECG When compared with ECG of 08-APR-2023 12:02, Previous ECG has undetermined rhythm, needs review QRS duration has increased ST no longer depressed in Inferior leads T wave inversion no longer evident in Inferior leads Confirmed by MIRA SAENZ M.D ([id number]) on 03/01/2025 5:26:48 PM [facility] 02/28/2025 8:02 PM CDT 03/01/2025 5:26 PM CDT Lucy Ho NP ECG ORDERABLES Final Re sult Performing Organization Address [facility] Co de Phone Number [facility] * XR chest 1 view (Portable) (02/28/2025 [...] PM CDT 02/28/2025 7:57 PM CDT Lucy Liza Ho SHRINK PIT SUPERVISOR LAB BLOOD ORDERABLES Fin al Result Performing Organization Address [facility] de Phone Number [facility] Department [place] [address] * eGFR (02/28/2025 7:42 PM CDT) eGFR [...] ORDERABLES Fin al Result Performing Organization Address [facility] Co de Phone Number [facility] [place] [address] * aPTT (02/28/2025 7:42 PM CDT) aPTT 32 26 - 38 sec Comment: Interpretive Data Heparin therapeutic range: 66.0 - 100.0 seconds. Range based on correlation with therapeutic heparin activity range of 0.3 - 0.7 Units/mL. Current interpretive data was last revised on 2023. Blood 02/28/2025 7:42 PM CDT 02/28/2025 7:57 PM CDT Lucy Ho SHRINK PIT SUPERVISOR LAB BLOOD ORDERABLES Fin al Result Performing Organization Address [facility] de Phone Number [facility] [place] [address] * Protime-INR (02/28/2025 7:42 PM CDT) [facility] PT 13.3 10.2 - 13.5 sec INR 1.18 0.90 - 1.20 [facility] Comment: Interpretive data Oral anticoagulant therapeutic ranges: Venous thromboembolism prophylaxis or treatment: 2.0-3.0 CARDIOLOGY Standard range: 2.0-3.0 High-intensity range: 2.5-3.5 Refer to indication-specific guidelines for appropriate target ranges for prosthetic heart valve replacement. Current interpretive data was last revised on 2019. Blood 02/28/2025 7:42 PM CDT 02/28/2025 7:57 PM CDT Lucy Ho NP LAB BLOOD ORDERABLES Fin al Result Performing Organization Address [facility] de Phone Number [facility] Department [place] [address] * (ABNORMAL) CBC without differential (02/28/2025 7:42 PM CDT) [facility] WBC 8.91 3.80 - 9.90 K/cumm Hgb 9.2(L) 13.0 - 17.5 g/dL [facility] Hct 29.5(L) 38.9 - 50.3 % [facility] Plt 223 150 - 400 K/cumm [facility] MPV 10.5 9.1 - 12.3 fL [facility] RBC 3.26(L) 4.30 - 5.80 M/cumm [facility] MCV 90.5 81.3 - 96.4 fL [facility] MCH 28.2 27.1 - 33.3 pg [facility] MCHC 31.2(L) 32.3 - 35.7 g/dL [facility] RDW CV 15.5(H) 11.1 - 14.9 % [facility] RDW SD 51.8(H) 35.7 - 48.1 fL [facility] NRBC abs 0.00 0.00 - 0.01 K/cumm [facility] Blood 02/28/2025 7:42 PM CDT 02/28/2025 7:57 PM CDT Lucy Ho NP LAB BLOOD ORDERABLES Fin al Result Performing Organization Address [facility] Co de Phone Number [facility] [place] [address] * (ABNORMAL) Type and screen (02/28/2025 7:42 PM CDT) ABO Rh O Positive Bonifacio, indirect Positive(A) [facility] Blood 02/28/2025 7:42 PM CDT 02/28/2025 7:54 PM CDT Narrative [facility] - 02/28/2025 8:47 PM CDT Has the patient had Daratumumab or Isatuximab in the past 6 months?->Unknown Lucy Ho NP LAB BLOOD BANK TEST ORDE RABLES Final Result Performing Organization Address [facility] Co de Phone Number [facility] Department [place] [address] * Phosphorus (02/28/2025 7:42 PM CDT) Phosphorus, pl 3.9 2.3 - 4.5 mg/dL Blood 02/28/2025 7:42 PM CDT 02/28/2025 7:56 PM CDT Lucy Ho NP LAB BLOOD ORDERABLES Fin al Result Performing Organization Address [facility] Co de Phone Number [facility] Department [place] [address] * Magnesium (02/28/2025 7:42 PM CDT) [facility] Magnesium 2.3 1.4 - 2.5 mg/dL Blood 02/28/2025 7:42 PM CDT 02/28/2025 7:56 PM CDT Lucy Ho NP LAB BLOOD ORDERABLES Fin al Result Performing Organization Address [facility] [place] [address] * Hemoglobin A1c (02/28/2025 7:42 PM CDT) [facility] Hgb A1C 5.4 4.0 - 5.6 % Estimated Average Glucose 108 mg/dL [facility] Comment: The ADA recommends reporting an estimated Average Glucose (eAG) with all Hemoglobin A1c results using the equation derived from a study of 507 normal and diabetic adults. Minority populations were underrepresented and children were not included. (Diabetes Care 2020; 43(S1): S66-S76). The eAG is not equivalent to a fasting glucose. Blood 02/28/2025 7:42 PM CDT 02/28/2025 8:02 PM CDT Result [facility] Liza Traylor MD LAB BLOOD ORDERABLES Fin al Result Performing Organization Address [facility] Co de Phone Number [facility] [place] [address] * (ABNORMAL) Blood gas, arterial (02/28/2025 7:42 PM CDT) [facility] pH, Art 7.38 7.35 - 7.45 PCO2, Arterial 53(H) 35 - 45 mmHg [facility] PO2, Arterial 78(L) 83 - 108 mmHg [facility] HCO3 Art (Calculated) 31(H) 20 - 30 mmol/L [facility] BE, art 5 mmol/L [facility] Comment: Interpretive Data No Reference Range Established Current Interpretive Data was last revised on 2017 O2 Sat Art (Measured) 96(H) 90 - 95 % [facility] Blood 02/28/2025 7:42 PM CDT 02/28/2025 7:49 PM CDT us Lucy Ho NP LAB BLOOD ORDERABLES Fin al Result [facility] Department [place] [address] * (ABNORMAL) Lipid panel (02/28/2025 7:42 PM [...] revised on 2018. Triglycerides 45 <=149 mg/dL [facility] Comment: Interpretive Data Ages < or [...] revised on 2018. HDL 27(L) >=40 mg/dL [facility] Comment: Interpretive Data Ages < or [...] on 2018. LDL, calculated 28 <=129 mg/dL [facility] Comment: Interpretive Data Ages < or [...] 3. Luis Segal et al. JO Cardiol. 2019November 02;5(5):540-548. doi: 10.1001/jamacardio.2020.0013 Current Interpretive Data was last revised on 2024. Non-HDL Cholesterol 41 mg/dL [facility] Comment: Interpretive Data Ages < or [...] last revised on 2018. Chol/HDL ratio 3 [facility] Blood 02/28/2025 7:42 PM CDT 02/28/2025 7:56 PM CDT us Jaqueiln Monroy MD LAB BLOOD ORDERABLES Fin al Result [facility] Department [place] [address] * (ABNORMAL) Comprehensive metabolic panel (02/28/2025 7:42 PM CDT) Sodium 144 135 - 145 mmol/L Potassium, pl 3.9 3.3 - 4.9 mmol/L [facility] Chloride 106 97 - 110 mmol/L [facility] CO2 33(H) 22 - 32 mmol/L [facility] Anion gap 5 2 - 15 mmol/L [facility] BUN 18 6 - 25 mg/dL [facility] Creatinine 0.88 0.80 - 1.30 mg/dL [facility] Glucose 117 70 - 199 mg/dL [facility] Comment: Interpretive Data Fasting glucose >/= [...] 2022. Calcium 8.3(L) 8.5 - 10.3 mg/dL [facility] Bilirubin, total 0.3 0.1 - 1.2 mg/dL [facility] Protein, pl 5.9(L) 6.5 - 8.5 g/dL [facility] Albumin 2.8(L) 3.5 - 5.0 g/dL [facility] Alk phos 89 40 - 130 Units/L [facility] ALT 18 7 - 55 Units/L [facility] AST 28 10 - 50 Units/L [facility] Blood 02/28/2025 7:42 PM CDT 02/28/2025 7:56 PM CDT us Lucy Ho NP LAB BLOOD ORDERABLES Fin al Result [facility] Department [place] [address] * POCT glucose (02/28/2025 7:27 PM CDT) [facility] Signature Glucose, POC 126 70 - 199 mg/dL Blood 02/28/2025 7:27 PM CDT 02/28/2025 7:27 PM CDT Liza Traylor MD LAB POCT ORDERABLES - DE VICE Final Result Performing Organization Address [facility] Co de Phone Number [facility] Department [place] [address] * CTA/CTP Rapid Stroke (C) (02/28/2025 7:13 [...] the CTA were generated on a dedicated workstation/windows server support technician. [employer] software (new test company) was used for automated analyses of the CTA. CT perfusion of the brain was performed with intravenous contrast using a separate data acquisition. These data were transmitted to a separate workstation/windows server support technician for processing by [employer] software (new test company) to produce automated calculations of the estimated [...] Artery: no occlusion or significant stenosis L INCINERATOR ATTENDANT: no occlusion or significant stenosis R INCINERATOR ATTENDANT: Mild to moderate narrowing. No occlusion. There [...] the CTA were generated on a dedicated workstation/windows server support technician. [employer] software (new test company) was used for automated analyses of the CTA. CT perfusion of the brain was performed with intravenous contrast using a separate data acquisition. These data were transmitted to a separate workstation/windows server support technician for processing by [employer] software (new test company) to produce automated calculations of the estimated [...] Artery: no occlusion or significant stenosis L INCINERATOR ATTENDANT: no occlusion or significant stenosis R INCINERATOR ATTENDANT: Mild to moderate narrowing. No occlusion. There [...] it. Electronically signed by: Goldie Edwards M.D. Jaquelin Monroy MD IMG CT PROCEDURES Final [...] MD LAB BLOOD ORDERABLES Fin al Result GIGI [facility] Department of [place] [address] * (ABNORMAL) Differential, auto (02/28/2025 6:50 PM CDT) Pathologist [facility] Neutrophil abs 7.36(H) 1.50 - 6.50 K/cumm Imm gran abs 0.03 0.00 - 0.10 K/cumm [facility] Lymphocyte abs 0.76(L) 0.80 - 3.30 K/cumm [facility] Monocyte abs 0.87(H) 0.20 - 0.80 K/cumm [facility] Eosinophil abs 0.20 0.00 - 0.50 K/cumm [facility] Basophil abs 0.02 0.00 - 0.10 K/cumm [facility] Neutrophil pct 79.7 % [facility] Comment: Interpretive Data Percent cell count reference ranges are not reported, since discordance with absolute values may lead to misinterpretation of CBC data. Current Interpretive Data was last revised on 2017. Imm gran pct 0.3 % [facility] Comment: Interpretive Data Percent cell count reference ranges are not reported, since discordance with absolute values may lead to misinterpretation of CBC data. Current Interpretive Data was last revised on 2017. Lymphocyte pct 8.2 % [facility] Comment: Interpretive Data Percent cell count reference ranges are not reported, since discordance with absolute values may lead to misinterpretation of CBC data. Current Interpretive Data was last revised on 2017. Monocyte pct 9.4 % [facility] Comment: Interpretive Data Percent cell count reference ranges are not reported, since discordance with absolute values may lead to misinterpretation of CBC data. Current Interpretive Data was last revised on 2017. Eosinophil pct 2.2 % [facility] Comment: Interpretive Data Percent cell count reference ranges are not reported, since discordance with absolute values may lead to misinterpretation of CBC data. Current Interpretive Data was last revised on 2017. Basophil pct 0.2 % [facility] Comment: Interpretive Data Percent cell count reference ranges are not reported, since discordance with absolute values may lead to misinterpretation of CBC data. Current Interpretive Data was last revised on 2017. Blood 02/28/2025 6:5 0 PM CDT 02/28/2025 7:03 PM CDT Jaquelin Monroy MD LAB BLOOD ORDERABLES Fin al Result Performing Organization Address [facility]/ZIP Co de Phone Number [facility] Department [place] [address] * (ABNORMAL) CBC with auto differential (02/28/2025 6:50 PM CDT) Pathologist [facility] WBC 9.24 3.80 - 9.90 K/cumm Hgb 8.9(L) 13.0 - 17.5 g/dL [facility] Hct 28.9(L) 38.9 - 50.3 % [facility] Plt 221 150 - 400 K/cumm [facility] MPV 10.6 9.1 - 12.3 fL [facility] RBC 3.20(L) 4.30 - 5.80 M/cumm [facility] MCV 90.3 81.3 - 96.4 fL [facility] MCH 27.8 27.1 - 33.3 pg [facility] MCHC 30.8(L) 32.3 - 35.7 g/dL [facility] RDW CV 15.4(H) 11.1 - 14.9 % [facility] RDW SD 50.8(H) 35.7 - 48.1 fL [facility] NRBC abs 0.00 0.00 - 0.01 K/cumm [facility] Blood 02/28/2025 6:50 PM CDT 02/28/2025 7:03 PM CDT Jaquelin Monroy MD LAB BLOOD ORDERABLES Fin al Result [facility] [place] [address] * Lactate, whole blood (02/28/2025 6:50 PM CDT) Lactate, bld 0.9 0.7 - 2.0 mmol/L Blood 02/28/2025 6:50 PM CDT 02/28/2025 6:57 PM CDT Jaquelin Monroy MD LAB BLOOD ORDERABLES Fin al Result Performing Organization Address [facility] Co de Phone Number [facility] Department [place] [address] * Magnesium (02/28/2025 6:50 PM CDT) Pathologist [facility] Magnesium 2.0 1.4 - 2.5 mg/dL Blood 02/28/2025 6:50 PM CDT 02/28/2025 7:03 PM CDT Jaquelin Monroy MD LAB BLOOD ORDERABLES Fin al Result Performing Organization Address [facility] de Phone Number [facility] [place] [address] * (ABNORMAL) Blood gas, venous (02/28/2025 6:50 PM CDT) pH, Venous 7.34 7.32 - 7.43 PCO2, Venous 59(H) 40 - 50 mmHg [facility] PO2, Venous 58 mmHg [facility] Comment: Interpretive Data No Reference Range Established Current Interpretive Data was last revised on 2017. HCO3 Venous, Calculated 31(H) 20 - 30 mmol/L [facility] BE, venous 4 mmol/L [facility] Comment: Interpretive Data No Reference Range Established Current Interpretive Data was last revised on 2017. Blood 02/28/2025 6:50 PM CDT 02/28/2025 6:57 PM CDT Jaquelin Monroy MD LAB BLOOD ORDERABLES Fin al Result Performing Organization Address [facility] de Phone Number [facility] [place] [address] * (ABNORMAL) Hepatic function panel (02/28/2025 6:50 PM CDT) Pathologist [facility] Bilirubin, total 0.3 0.1 - 1.2 mg/dL Bilirubin, direct <0.2 0.1 - 0.3 mg/dL [facility] Protein, pl 5.9(L) 6.5 - 8.5 g/dL [facility] Albumin 3.0(L) 3.5 - 5.0 g/dL [facility] Alk phos 91 40 - 130 Units/L [facility] ALT 23 7 - 55 Units/L [facility] AST 27 10 - 50 Units/L [facility] Blood 02/28/2025 6:50 PM CDT 02/28/2025 7:03 PM CDT us Jaquelin Monroy MD LAB BLOOD ORDERABLES Fin al Result [facility] Department [place] [address] * (ABNORMAL) Basic metabolic panel (02/28/2025 6:50 PM CDT) Pathologist [facility] Sodium 148(H) 135 - 145 mmol/L Potassium, pl 4.5 3.3 - 4.9 mmol/L [facility] Chloride 108 97 - 110 mmol/L [facility] CO2 33(H) 22 - 32 mmol/L [facility] Anion gap 7 2 - 15 mmol/L [facility] BUN 17 6 - 25 mg/dL [facility] Creatinine 0.85 0.80 - 1.30 mg/dL [facility] Glucose 136 70 - 199 mg/dL [facility] Comment: Interpretive Data Fasting glucose >/= [...] 2022. Calcium 7.6(L) 8.5 - 10.3 mg/dL [facility] Blood 02/28/2025 6:50 PM CDT 02/28/2025 7:03 PM CDT Jaquelin Monroy MD LAB BLOOD ORDERABLES Fin al Result Performing Organization Address [facility]/ZIP Co de Phone Number [facility] [place] [address] * (ABNORMAL) Arterial Blood gas w/Lactate POCT (02/28/2025 6:49 PM CDT) Lactate POC i-STAT 0.5(L) 0.7 - 2.0 mmol/L pH POC 7.34(L) 7.35 - 7.45 [facility] pCO2, Art POC 60(H) 35 - [address] [facility] PO2 POC 51(L) 80 - 105 mmHg [facility] CO2, total POC 35(H) 20 - 30 mmol/L [facility] HCO3, POC 33(H) 21 - 30 mmol/L [facility] BE POC 7(H) -2 - 3 mmol/L [facility] O2 sat POC 82(L) 95 - 98 % [facility] Blood 02/28/2025 6:49 PM CDT 02/28/2025 6:49 PM CDT Jaquelin Monroy MD LAB BLOOD ORDERABLES Fin al Result [facility] Department [place] [address] * POCT glucose (02/28/2025 6:30 PM CDT) Glucose, POC 140 70 - 199 mg/dL Blood 02/28/2025 6:30 PM CDT 02/28/2025 6:30 PM CDT us Jaquelin Monroy MD LAB POCT ORDERABLES - DE VICE Final Result [facility] Department [place] [address] * XR Sacrum Coccyx 2 or More [...] MD LAB BLOOD ORDERABLES Final R esult [facility] Department [place] [address] * (ABNORMAL) Differential, auto (02/27/2025 10:55 PM CDT) Neutrophil abs 7.32(H) 1.50 - 6.50 K/cumm Imm gran abs 0.05 0.00 - 0.10 K/cumm [facility] Lymphocyte abs 0.88 0.80 - 3.30 K/cumm [facility] Monocyte abs 0.93(H) 0.20 - 0.80 K/cumm [facility] Eosinophil abs 0.21 0.00 - 0.50 K[facility]cumm [facility] Basophil abs 0.03 0.00 - 0.10 K/cumm [facility] Neutrophil pct 77.8 % [facility] Comment: Interpretive Data Percent cell count reference ranges are not reported, since discordance with absolute values may lead to misinterpretation of CBC data. Current Interpretive Data was last revised on 2017. Imm gran pct 0.5 % [facility] Comment: Interpretive Data Percent cell count reference ranges are not reported, since discordance with absolute values may lead to misinterpretation of CBC data. Current Interpretive Data was last revised on 2017. Lymphocyte pct 9.3 % [facility] Comment: Interpretive Data Percent cell count reference ranges are not reported, since discordance with absolute values may lead to misinterpretation of CBC data. Current Interpretive Data was last revised on 2017. Monocyte pct 9.9 % [facility] Comment: Interpretive Data Percent cell count reference ranges are not reported, since discordance with absolute values may lead to misinterpretation of CBC data. Current Interpretive Data was last revised on 2017. Eosinophil pct 2.2 % [facility] Comment: Interpretive Data Percent cell count reference ranges are not reported, since discordance with absolute values may lead to misinterpretation of CBC data. Current Interpretive Data was last revised on 2017. Basophil pct 0.3 % [facility] Comment: Interpretive Data Percent cell count reference ranges are not reported, since discordance with absolute values may lead to misinterpretation of CBC data. Current Interpretive Data was last revised on 2017. Blood 02/27/2025 10:5 5 PM CDT 02/28/2025 12:37 AM CDT us Shayne Hussein MD LAB BLOOD ORDERABLES Final R esult [facility] Department [place] [address] * (ABNORMAL) CBC with auto differential (02/27/2025 10:55 PM CDT) WBC 9.42 3.80 - 9.90 K/cumm Hgb 8.9(L) 13.0 - 17.5 g/dL [facility] Hct 28.3(L) 38.9 - 50.3 % [facility] Plt 224 150 - 400 K/cumm [facility] MPV 10.6 9.1 - 12.3 fL [facility] RBC 3.15(L) 4.30 - 5.80 M/cumm [facility] MCV 89.8 81.3 - 96.4 fL [facility] MCH 28.3 27.1 - 33.3 pg [facility] MCHC 31.4(L) 32.3 - 35.7 g/dL [facility] RDW CV 15.5(H) 11.1 - 14.9 % [facility] RDW SD 50.9(H) 35.7 - 48.1 fL [facility] NRBC abs 0.00 0.00 - 0.01 K/cumm [facility] Blood 02/27/2025 10:5 5 PM CDT 02/28/2025 12:37 AM CDT us Shayne Hussein MD LAB BLOOD ORDERABLES Final R esult [facility] Department [place] [address] * (ABNORMAL) Basic metabolic panel (02/27/2025 10:55 PM CDT) Pathologist [facility] Sodium 141 135 - 145 mmol/L Potassium, pl 3.6 3.3 - 4.9 mmol/L [facility] Chloride 105 97 - 110 mmol/L [facility] CO2 30 22 - 32 mmol/L [facility] Anion gap 6 2 - 15 mmol/L [facility] BUN 18 6 - 25 mg/dL [facility] Creatinine 0.90 0.80 - 1.30 mg/dL [facility] Glucose 105 70 - 199 mg/dL [facility] Comment: Interpretive Data Fasting glucose >/= [...] 2022. Calcium 7.8(L) 8.5 - 10.3 mg/dL [facility] Blood 02/27/2025 10:5 5 PM CDT 02/28/2025 12:32 AM CDT us Shayne Hussein MD LAB BLOOD ORDERABLES Final R esult Performing Organization Address [facility]/ZIP Co de Phone Number [facility] [place] [address] * POCT glucose (02/27/2025 11:31 AM CDT) Glucose, POC 138 70 - 199 mg/dL Blood 02/27/2025 11:3 1 AM CDT 02/27/2025 11:31 AM CDT us Jaquelin Monroy MD LAB POCT ORDERABLES - DE VICE Final Result Performing Organization Address [facility]/ZIP Co de Phone Number [facility] [place] [address] * eGFR (02/26/2025 11:33 PM CDT) [facility] eGFR >90 >=60 mL/min/1. 73 m2 Comment: [...] MD LAB BLOOD ORDERABLES Final [facility] [place] [address] * (ABNORMAL) Differential, auto (02/26/2025 11:33 PM CDT) Neutrophil abs 5.82 1.50 - 6.50 K/cumm Imm gran abs 0.04 0.00 - 0.10 K/cumm [facility] Lymphocyte abs 0.74(L) 0.80 - 3.30 K/cumm [facility] Monocyte abs 0.82(H) 0.20 - 0.80 K/cumm [facility] Eosinophil abs 0.25 0.00 - 0.50 K/cumm [facility] Basophil abs 0.02 0.00 - 0.10 K/cumm [facility] Neutrophil pct 75.6 % [facility] Comment: Interpretive Data Percent cell count reference ranges are not reported, since discordance with absolute values may lead to misinterpretation of CBC data. Current Interpretive Data was last revised on 2017. Imm gran pct 0.5 % [facility] Comment: Interpretive Data Percent cell count reference ranges are not reported, since discordance with absolute values may lead to misinterpretation of CBC data. Current Interpretive Data was last revised on 2017. Lymphocyte pct 9.6 % [facility] Comment: Interpretive Data Percent cell count reference ranges are not reported, since discordance with absolute values may lead to misinterpretation of CBC data. Current Interpretive Data was last revised on 2017. Monocyte pct 10.7 % [facility] Comment: Interpretive Data Percent cell count reference ranges are not reported, since discordance with absolute values may lead to misinterpretation of CBC data. Current Interpretive Data was last revised on 2017. Eosinophil pct 3.3 % [facility] Comment: Interpretive Data Percent [...] ORDERABLES Final R esult Performing Organization Address [facility] Co de Phone Number [facility] Department [place] [address] * (ABNORMAL) CBC with auto differential (02/26/2025 11:33 PM CDT) Pathologist [facility] WBC 7.69 3.80 - 9.90 K/cumm Hgb 8.9(L) 13.0 - 17.5 g/dL [facility] Hct 28.8(L) 38.9 - 50.3 % [facility] Plt 174 150 - 400 K/cumm [facility] MPV 10.7 9.1 - 12.3 fL [facility] RBC 3.16(L) 4.30 - 5.80 M/cumm [facility] MCV 91.1 81.3 - 96.4 fL [facility] MCH 28.2 27.1 - 33.3 pg [facility] MCHC 30.9(L) 32.3 - 35.7 g/dL [facility] RDW CV 15.2(H) 11.1 - 14.9 % [facility] RDW SD 51.2(H) 35.7 - 48.1 fL [facility] NRBC abs 0.00 0.00 - 0.01 K/cumm [facility] Blood 02/26/2025 11:3 3 PM CDT 02/27/2025 12:06 AM CDT us hSayne Hussein MD LAB BLOOD ORDERABLES Final R esult Performing Organization Address [facility]/ZIP Co de Phone Number [facility] Department [place] [address] * (ABNORMAL) Basic metabolic panel (02/26/2025 11:33 PM CDT) Pathologist [facility] Sodium 142 135 - 145 mmol/L Potassium, pl 3.8 3.3 - 4.9 mmol/L [facility] Chloride 106 97 - 110 mmol/L [facility] CO2 31 22 - 32 mmol/L [facility] Anion gap 5 2 - 15 mmol/L [facility] BUN 17 6 - 25 mg/dL [facility] Creatinine 0.85 0.80 - 1.30 mg/dL [facility] Glucose 111 70 - 199 mg/dL [facility] Comment: Interpretive Data Fasting glucose >/= [...] 2022. Calcium 8.0(L) 8.5 - 10.3 mg/dL [facility] Blood 02/26/2025 11:3 3 PM CDT 02/27/2025 12:05 AM CDT us Shayne Hussein MD LAB BLOOD ORDERABLES Final R esult Performing Organization Address [facility]/ZIP Co de Phone Number [facility] Department [place] [address] * Potassium, urine, random (02/26/2025 4:41 PM CDT) Potassium conc, ur 19.1 mmol/L Comment: Interpretive Data No reference range established. Current interpretive data was last revised 2018. Urine 02/26/2025 4:41 PM CDT 02/26/2025 4:57 PM CDT us Ros Olivares NP LAB URINE ORDERABLES Final Result [facility] [place] [address] * Creatinine, urine, random (02/26/2025 4:41 PM CDT) Creatinine Ur 136.2 mg/dL Comment: Interpretive Data No reference range established. Current interpretive data was last revised 2018. Urine 02/26/2025 4:41 PM CDT 02/26/2025 4:57 PM CDT Ros Olivares NP LAB URINE ORDERABLES Final Result Performing Organization Address [facility] Co de Phone Number [facility] [place] [address] * Chloride, urine, random (02/26/2025 4:41 PM CDT) Pathologist [facility] Chloride, ur 91 mmol/L Comment: Interpretive Data No reference range established. Current interpretive data was last revised 2018. Urine 02/26/2025 4:41 PM CDT 02/26/2025 4:57 PM CDT Ros Olivares NP LAB URINE ORDERABLES Final Result Performing Organization Address [facility] Co de Phone Number [facility] [place] [address] * eGFR (02/26/2025 6:13 AM CDT) eGFR [...] Olivares NP LAB BLOOD ORDERABLES Final Result [facility] Department [place] [address] * (ABNORMAL) Differential, auto (02/26/2025 6:13 AM CDT) Neutrophil abs 5.34 1.50 - 6.50 K/cumm Imm gran abs 0.03 0.00 - 0.10 K/cumm [facility] Lymphocyte abs 0.63(L) 0.80 - 3.30 K/cumm [facility] Monocyte abs 0.93(H) 0.20 - 0.80 K/cumm [facility] Eosinophil abs 0.19 0.00 - 0.50 K/cumm [facility] Basophil abs 0.01 0.00 - 0.10 K/cumm [facility] Neutrophil pct 75.0 % [facility] Comment: Interpretive Data Percent cell count reference ranges are not reported, since discordance with absolute values may lead to misinterpretation of CBC data. Current Interpretive Data was last revised on 2017. Imm gran pct 0.4 % [facility] Comment: Interpretive Data Percent cell count reference ranges are not reported, since discordance with absolute values may lead to misinterpretation of CBC data. Current Interpretive Data was last revised on 2017. Lymphocyte pct 8.8 % [facility] Comment: Interpretive Data Percent cell count reference ranges are not reported, since discordance with absolute values may lead to misinterpretation of CBC data. Current Interpretive Data was last revised on 2017. Monocyte pct 13.0 % [facility] Comment: Interpretive Data Percent cell count reference ranges are not reported, since discordance with absolute values may lead to misinterpretation of CBC data. Current Interpretive Data was last revised on 2017. Eosinophil pct 2.7 % [facility] Comment: Interpretive Data Percent cell count reference ranges are not reported, since discordance with absolute values may lead to misinterpretation of CBC data. Current Interpretive Data was last revised on 2017. Basophil pct 0.1 % [facility] Comment: Interpretive Data Percent cell count reference ranges are not reported, since discordance with absolute values may lead to misinterpretation of CBC data. Current Interpretive Data was last revised on 2017. Blood 02/26/2025 6:13 AM CDT 02/26/2025 6:26 AM CDT us Shayne Hussein MD LAB BLOOD ORDERABLES Final R esult [facility] Department [place] [address] * (ABNORMAL) CBC with auto differential (02/26/2025 6:13 AM CDT) WBC 7.13 3.80 - 9.90 K/cumm Hgb 8.4(L) 13.0 - 17.5 g/dL [facility] Hct 26.6(L) 38.9 - 50.3 % [facility] Plt 182 150 - 400 K/cumm [facility] MPV 10.4 9.1 - 12.3 fL [facility] RBC 2.99(L) 4.30 - 5.80 M/cumm [facility] MCV 89.0 81.3 - 96.4 fL [facility] MCH 28.1 27.1 - 33.3 pg [facility] MCHC 31.6(L) 32.3 - 35.7 g/dL [facility] RDW CV 15.5(H) 11.1 - 14.9 % [facility] RDW SD 50.5(H) 35.7 - 48.1 fL [facility] NRBC abs 0.00 0.00 - 0.01 K/cumm [facility] Blood 02/26/2025 6:13 AM CDT 02/26/2025 6:26 AM CDT Shayne Hussein MD LAB BLOOD ORDERABLES Final R esult Performing Organization Address [facility] Co de Phone Number [facility] Department [place] [address] * Magnesium (02/26/2025 6:13 AM CDT) [facility] Magnesium 2.2 1.4 - 2.5 mg/dL Blood 02/26/2025 6:13 AM CDT 02/26/2025 6:26 AM CDT Shayne Hussein MD LAB BLOOD ORDERABLES Final R esult Performing Organization Address [facility] de Phone Number [facility] Department [place] [address] * (ABNORMAL) Basic metabolic panel (02/26/2025 6:13 AM CDT) [facility] Sodium 143 135 - 145 mmol/L Potassium, pl 3.3 3.3 - 4.9 mmol/L [facility] Chloride 104 97 - 110 mmol/L [facility] CO2 28 22 - 32 mmol/L [facility] Anion gap 11 2 - 15 mmol/L [facility] BUN 15 6 - 25 mg/dL [facility] Creatinine 0.83 0.80 - 1.30 mg/dL [facility] Glucose 102 70 - 199 mg/dL [facility] Comment: Interpretive Data Fasting glucose >/= [...] 2022. Calcium 7.9(L) 8.5 - 10.3 mg/dL [facility] Blood 02/26/2025 6:13 AM CDT 02/26/2025 6:26 AM CDT us Ros Olivares NP LAB BLOOD ORDERABLES Final Result Performing Organization Address [facility]/ZIP Co de Phone Number [facility]IG[facility] Department [place] [address] * eGFR (02/25/2025 10:30 PM CDT) eGFR [...] MD LAB BLOOD ORDERABLES Final R esult [facility] Department [place] [address] * Magnesium (02/25/2025 10:30 PM CDT) [facility] Magnesium 2.1 1.4 - 2.5 mg/dL Blood 02/25/2025 10:3 0 PM CDT 02/25/2025 10:39 PM CDT us Shayne Hussein MD LAB BLOOD ORDERABLES Final R esult [facility] [place] [address] * (ABNORMAL) Basic metabolic panel (02/25/2025 10:30 PM CDT) [facility] Sodium 139 135 - 145 mmol/L Potassium, pl 3.7 3.3 - 4.9 mmol/L [facility] Chloride 101 97 - 110 mmol/L [facility] CO2 31 22 - 32 mmol/L [facility] Anion gap 7 2 - 15 mmol/L [facility] BUN 16 6 - 25 mg/dL [facility] Creatinine 0.78(L) 0.80 - 1.30 mg/dL [facility] Glucose 110 70 - 199 mg/dL [facility] Comment: Interpretive Data Fasting glucose >/= [...] 2022. Calcium 8.3(L) 8.5 - 10.3 mg/dL [facility] Blood 02/25/2025 10:3 0 PM CDT 02/25/2025 10:39 PM CDT Result [facility] Shayne Hussein MD LAB BLOOD ORDERABLES Final R esult Performing Organization Address [facility] Co de Phone Number [facility] Department [place] [address] * (ABNORMAL) Potassium, whole blood (02/25/2025 2:44 PM CDT) Potassium, bld 3.2(L) 3.3 - 4.9 mmol/L Comment:Verified Blood 02/25/2025 2:44 PM CDT 02/25/2025 2:52 PM CDT Result [facility] Savannah Valenzuela MD PhD LAB BLOOD ORDERABLES Final Resu lt Performing Organization Address [facility] de Phone Number [facility] [place] [address] * (ABNORMAL) Troponin I high-sensitivity 4-hour (02/25/2025 2:14 PM CDT) Trop I hs 55(H) <=35 ng/L Comment: Interpretive Data For further hscTnI resources including the diagnostic algorithm and an aid in interpretation, copy and paste this link: [email or web address] Current Interpretive Data last revised 2020. Trop I hs delta -13 ng/L [facility] Trop I hs interp Equivocal [facility] Blood 02/25/2025 2:14 PM CDT 02/25/2025 3:45 PM CDT Result [facility] Savannah Valenzuela MD PhD LAB BLOOD ORDERABLES Final Resu lt Performing Organization Address [facility] Co de Phone Number [facility] [place] [address] * Bladder Catheterization (02/25/2025 12:13 PM CDT) [...] Rapid HIV, POC Negative Negative Lot Number [id number] QC Control Line Acceptable Blood 02/25/2025 11:2 0 AM CDT Ezekiel Roberts MD POINT OF CARE TEST ORDERABLES Fi nal Result * (ABNORMAL) Urinalysis reflex to microscopic and culture Urine, suprapubic catheter (02/25/2025 11:19 AM CDT) Pathologist [facility] Color, ur Straw Yellow Clarity, ur Clear Clear [facility] Specific gravity, ur 1.016 1.003 - 1.030 [facility] pH, urine 6.0 [facility] Comment: Interpretive Data U rine pH is affected by diet, medications, systemic acid-base disturbances, and renal tubular function. pH may affect urinary stone formation. For example, urine pH below 6.0 may help reduce the tendency for calcium phosphate stones and pH greater than 6.0 may reduce the tendency for uric acid stone formation. Source: [employer] Current Interpretive Data was last revised on 2017 Protein, ur ql 1+(A) Negative [facility] Glucose, ur ql Negative Negative [facility] Ketones, ur 2+(A) Negative [facility] Bilirubin, ur Negative Negative [facility] Blood, ur Trace(A) Negative [facility] Urobilinogen, ur <2.0 <2.0 mg/dL [facility] Nitrite, ur Negative Negative [facility] Leukocyte esterase, ur Negative Negative [facility] UA reflex comment Reflex to microscopic UA will be performed. [facility] Urine, suprapubic catheter 02/25/2025 11:19 AM CDT 02/25/2025 11:39 AM CDT us Savannah Valenzuela MD PhD LAB [facility]OLOGY - [facility] Final Result Performing Organization Address [facility] Co de Phone Number [facility] [place] [address] * (ABNORMAL) Urinalysis, microscopic only (02/25/2025 11:19 AM CDT) WBC, ur 11-20(A) 0 - 5 /HPF RBC, ur 3-5(A) 0 - 2 /HPF [facility] Epithelial cells, squamous, ur 1-5 0 - 5 /HPF [facility] Mucous, ur Present(A) [facility] Culture Reflex Comment Reflex to urine culture will be performed. [facility] Urine, suprapubic catheter 02/25/2025 11:19 AM CDT 02/25/2025 11:39 AM CDT us Savannah Valenzuela MD PhD LAB URINE ORDERABLES Final Resu lt Performing Organization Address [facility] de Phone Number [facility] Department [place] [address] * Urine culture Urine, suprapubic catheter (02/25/2025 11:19 AM CDT) Report Final Report: Less than 100,000 colonies/mL (clinically insignificant growth based on current clinical standards) Organism (CLINICALLY INSIGNIFICANT GROWTH [facility] Urine, suprapubic catheter 02/25/2025 11:19 AM CDT 02/25/2025 3:07 PM CDT Narrative [facility] - 02/26/2025 6:15 PM CDT Urine culture reflexed based upon urinalysis results. Testing performed by [facility]biology [facility] ([phone]) Savannah Valenzuela MD PhD LAB MICROBIOLOGY - [facility] ANTONIO WAGNERSOCO Final Result Performing Organization Address [facility] Co de Phone Number [facility] Department [place] [address] * (ABNORMAL) Troponin I high-sensitivity series (baseline, [...] ORDERABLES Final Resu lt Performing Organization Address [facility] Co de Phone Number [facility] Department [place] [address] * Sepsis Lactate w/ Reflex (02/25/2025 10:01 AM CDT) Pathologist [facility] Sepsis Lactate 0.8 0.7 - 2.0 mmol/L Blood 02/25/2025 10:0 1 AM CDT 02/25/2025 10:25 AM CDT Savannah Valenzuela MD PhD LAB BLOOD ORDERABLES Final Resu lt Performing Organization Address [facility] Co de Phone Number [facility] [place] [address] * eGFR (02/25/2025 10:01 AM CDT) eGFR [...] PhD LAB BLOOD ORDERABLES Final Resu lt [facility] Department [place] [address] * (ABNORMAL) Differential, auto (02/25/2025 10:01 AM CDT) [facility] Neutrophil abs 9.62(H) 1.50 - 6.50 K/cumm Imm gran abs 0.07 0.00 - 0.10 K/cumm [facility] Lymphocyte abs 0.47(L) 0.80 - 3.30 K/cumm [facility] Monocyte abs 1.19(H) 0.20 - 0.80 K/cumm [facility] Eosinophil abs 0.02 0.00 - 0.50 K/cumm [facility] Basophil abs 0.02 0.00 - 0.10 K/cumm [facility] Neutrophil pct 84.5 % [facility] Comment: Interpretive Data Percent cell count reference ranges are not reported, since discordance with absolute values may lead to misinterpretation of CBC data. Current Interpretive Data was last revised on 2017. Imm gran pct 0.6 % [facility] Comment: Interpretive Data Percent cell count reference ranges are not reported, since discordance with absolute values may lead to misinterpretation of CBC data. Current Interpretive Data was last revised on 2017. Lymphocyte pct 4.1 % [facility] Comment: Interpretive Data Percent cell count reference ranges are not reported, since discordance with absolute values may lead to misinterpretation of CBC data. Current Interpretive Data was last revised on 2017. Monocyte pct 10.4 % [facility] Comment: Interpretive Data Percent cell count reference ranges are not reported, since discordance with absolute values may lead to misinterpretation of CBC data. Current Interpretive Data was last revised on 2017. Eosinophil pct 0.2 % [facility] Comment: Interpretive Data Percent cell count reference ranges are not reported, since discordance with absolute values may lead to misinterpretation of CBC data. Current Interpretive Data was last revised on 2017. Basophil pct 0.2 % [facility] Comment: Interpretive Data Percent cell count reference ranges are not reported, since discordance with absolute values may lead to misinterpretation of CBC data. Current Interpretive Data was last revised on 2017. Blood 02/25/2025 10:0 1 AM CDT 02/25/2025 10:49 AM CDT Savannah Valenzuela MD PhD LAB BLOOD ORDERABLES Final Resu lt [facility] Department [place] [address] * (ABNORMAL) CBC with auto differential (02/25/2025 10:01 AM CDT) WBC 11.39(H) 3.80 - 9.90 K/cumm Hgb 9.2(L) 13.0 - 17.5 g/dL [facility] Hct 28.9(L) 38.9 - 50.3 % [facility] Plt 180 150 - 400 K/cumm [facility] MPV 10.3 9.1 - 12.3 fL [facility] RBC 3.29(L) 4.30 - 5.80 M/cumm [facility] MCV 87.8 81.3 - 96.4 fL [facility] MCH 28.0 27.1 - 33.3 pg [facility] MCHC 31.8(L) 32.3 - 35.7 g/dL [facility] RDW CV 15.1(H) 11.1 - 14.9 % [facility] RDW SD 48.9(H) 35.7 - 48.1 fL [facility] NRBC abs 0.00 0.00 - 0.01 K/cumm [facility] Blood 02/25/2025 10:0 1 AM CDT 02/25/2025 10:49 AM CDT Savannah Valenzuela MD PhD LAB BLOOD ORDERABLES Final Resu lt [facility] Department [place] [address] * Blood culture Blood Peripheral (02/25/2025 10:01 AM CDT) Report Final Report: No growth Blood (Peripheral) 02/25/2025 10:01 AM CDT 02/25/2025 10:26 AM CDT Narrative [facility] - 03/01/2025 12:01 PM CDT From a [...] performance characteristics have been verified by the [facility]biology [facility]. For questions about this culture, contact the Microbiology Laboratory at [phone]. Interpretive data was last revised on 24. Savannah Valenzuela MD PhD LAB MICROBIOLOGY - GENERAL [facility] Final Result [facility] Department [place] [address] * Blood culture Blood Peripheral (02/25/2025 10:01 AM CDT) Report Final Report: No growth Blood (Peripheral) 02/25/2025 10:01 AM CDT 02/25/2025 10:26 AM CDT Narrative [facility] - 03/01/2025 12:01 PM CDT Draw [...] performance characteristics have been verified by the [facility]. For questions about this culture, contact the Microbiology Laboratory at [phone]. Interpretive data was last revised on 24. Savannah Valenzuela MD PhD LAB MICROBIOLOGY - GENERAL [facility] WALKER Final Result Performing Organization Address [facility] Co de Phone Number [facility] Department [place] [address] * Phosphorus (02/25/2025 10:01 AM CDT) Pathologist [facility] Phosphorus, pl 2.3 2.3 - 4.5 mg/dL Blood 02/25/2025 10:0 1 AM CDT 02/25/2025 10:23 AM CDT Ezekiel Roberts MD LAB BLOOD ORDERABLES Final Resul t Performing Organization Address [facility] de Phone Number [facility] Department [place] [address] * Magnesium (02/25/2025 10:01 AM CDT) [facility] Magnesium 2.0 1.4 - 2.5 mg/dL Blood 02/25/2025 10:0 1 AM CDT 02/25/2025 10:23 AM CDT Ezekiel Roberts MD LAB BLOOD ORDERABLES Final Resul t Performing Organization Address [facility] de Phone Number [facility] [place] [address] * (ABNORMAL) Comprehensive metabolic panel (02/25/2025 10:01 AM CDT) [facility] Sodium 143 135 - 145 mmol/L Potassium, pl 2.7(L) 3.3 - 4.9 mmol/L [facility] Chloride 100 97 - 110 mmol/L [facility] CO2 32 22 - 32 mmol/L [facility] Anion gap 11 2 - 15 mmol/L [facility] BUN 19 6 - 25 mg/dL [facility] Creatinine 0.87 0.80 - 1.30 mg/dL [facility] Glucose 114 70 - 199 mg/dL [facility] Comment: Interpretive Data Fasting glucose >/= [...] 2022. Calcium 8.3(L) 8.5 - 10.3 mg/dL [facility] Bilirubin, total 0.7 0.1 - 1.2 mg/dL [facility] Protein, pl 5.9(L) 6.5 - 8.5 g/dL [facility] Albumin 3.0(L) 3.5 - 5.0 g/dL [facility] Alk phos 77 40 - 130 Units/L [facility] ALT 18 7 - 55 Units/L [facility] AST 24 10 - 50 Units/L [facility] Blood 02/25/2025 10:0 1 AM CDT 02/25/2025 10:23 AM CDT Savannah Valenzuela MD PhD LAB BLOOD ORDERABLES Final Resu lt [facility] Department [place] [address] * ECG 12-LEAD (02/25/2025 9:57 AM CDT) Narrative [facility] - 02/25/2025 9:57 AM CDT Ezekiel [...] Valenzuela MD PhD ECG ORDERABLES Final Result [facility] * XR Chest 1 Vw Portable [...] Meadows MD LAB BLOOD ORDERABLES Final Result [facility] Department [place] [address] * (ABNORMAL) CBC without differential (02/18/2025 6:56 PM CDT) WBC 14.61(H) 3.80 - 9.90 K/cumm Hgb 9.5(L) 13.0 - 17.5 g/dL [facility] Hct 30.1(L) 38.9 - 50.3 % [facility] Plt 207 150 - 400 K/cumm [facility] MPV 11.0 9.1 - 12.3 fL [facility] RBC 3.38(L) 4.30 - 5.80 M/cumm [facility] MCV 89.1 81.3 - 96.4 fL [facility] MCH 28.1 27.1 - 33.3 pg [facility] MCHC 31.6(L) 32.3 - 35.7 g/dL [facility] RDW CV 14.6 11.1 - 14.9 % [facility] RDW SD 46.8 35.7 - 48.1 fL [facility] NRBC abs 0.00 0.00 - 0.01 K/cumm [facility] Blood 02/18/2025 6:56 PM CDT 02/18/2025 7:28 PM CDT Alena Meadows MD LAB BLOOD ORDERABLES Final Result Performing Organization Address [facility]/ZIP Co de Phone Number [facility] [place] [address] * Magnesium (02/18/2025 6:56 PM CDT) [facility] Magnesium 2.0 1.4 - 2.5 mg/dL Blood 02/18/2025 6:56 PM CDT 02/18/2025 7:27 PM CDT Alena Meadows MD LAB BLOOD ORDERABLES Final Result [facility] [place] [address] * (ABNORMAL) Comprehensive metabolic panel (02/18/2025 6:56 PM CDT) Pathologist [facility] Sodium 138 135 - 145 mmol/L Potassium, pl 3.5 3.3 - 4.9 mmol/L [facility] Chloride 100 97 - 110 mmol/L [facility] CO2 30 22 - 32 mmol/L [facility] Anion gap 8 2 - 15 mmol/L [facility] BUN 22 6 - 25 mg/dL [facility] Creatinine 0.94 0.80 - 1.30 mg/dL [facility] Glucose 131 70 - 199 mg/dL [facility] Comment: Interpretive Data Fasting glucose >/= [...] 2022. Calcium 8.2(L) 8.5 - 10.3 mg/dL [facility] Bilirubin, total 0.4 0.1 - 1.2 mg/dL [facility] Protein, pl 5.9(L) 6.5 - 8.5 g/dL [facility] Albumin 2.9(L) 3.5 - 5.0 g/dL [facility] Alk phos 93 40 - 130 Units/L [facility] ALT 16 7 - 55 Units/L [facility] AST 17 10 - 50 Units/L [facility] Blood 02/18/2025 6:56 PM CDT 02/18/2025 7:27 PM CDT us Alena Meadows MD LAB BLOOD ORDERABLES Final Result [facility] Department [place] [address] * Sepsis Lactate w/ Reflex (02/17/2025 4:32 PM CDT) Sepsis Lactate 0.9 0.7 - 2.0 mmol/L Blood 02/17/2025 4:32 PM CDT 02/17/2025 4:42 PM CDT Juanita Rogers MD LAB BLOOD ORDERABLES Final Result Performing Organization Address [facility] Co de Phone Number [facility] [place] [address] * eGFR (02/17/2025 4:32 PM CDT) Pathologist [facility] eGFR 74 >=60 mL/min/1. 73 m2 [...] 4:32 PM CDT 02/17/2025 4:43 PM CDT Juanita Rogers MD LAB BLOOD ORDERABLES Final Result Performing Organization Address [facility]/ZIP Co de Phone Number [facility] Department [place] [address] * (ABNORMAL) Differential, auto (02/17/2025 4:32 PM CDT) Pathologist [facility] Neutrophil abs 12.39(H) 1.50 - 6.50 K/cumm Imm gran abs 0.08 0.00 - 0.10 K/cumm [facility] Lymphocyte abs 0.59(L) 0.80 - 3.30 K/cumm [facility] Monocyte abs 1.38(H) 0.20 - 0.80 K/cumm [facility] Eosinophil abs 0.06 0.00 - 0.50 K/cumm [facility] Basophil abs 0.02 0.00 - 0.10 K/cumm [facility] Neutrophil pct 85.3 % [facility] Comment: Interpretive Data Percent cell count reference ranges are not reported, since discordance with absolute values may lead to misinterpretation of CBC data. Current Interpretive Data was last revised on 2017. Imm gran pct 0.6 % [facility] Comment: Interpretive Data Percent cell count reference ranges are not reported, since discordance with absolute values may lead to misinterpretation of CBC data. Current Interpretive Data was last revised on 2017. Lymphocyte pct 4.1 % [facility] Comment: Interpretive Data Percent cell count reference ranges are not reported, since discordance with absolute values may lead to misinterpretation of CBC data. Current Interpretive Data was last revised on 2017. Monocyte pct 9.5 % [facility] Comment: Interpretive Data Percent cell count reference ranges are not reported, since discordance with absolute values may lead to misinterpretation of CBC data. Current Interpretive Data was last revised on 2017. Eosinophil pct 0.4 % [facility] Comment: Interpretive Data Percent cell count reference ranges are not reported, since discordance with absolute values may lead to misinterpretation of CBC data. Current Interpretive Data was last revised on 2017. Basophil pct 0.1 % [facility] Comment: Interpretive Data Percent cell count reference ranges are not reported, since discordance with absolute values may lead to misinterpretation of CBC data. Current Interpretive Data was last revised on 2017. Blood 02/17/2025 4:32 PM CDT 02/17/2025 4:44 PM CDT us Juanita Rogers MD LAB BLOOD ORDERABLES Final Result [facility] Department [place] [address] * (ABNORMAL) CBC with auto differential (02/17/2025 4:32 PM CDT) WBC 14.66(H) 3.80 - 9.90 K/cumm Hgb 9.8(L) 13.0 - 17.5 g/dL [facility] Hct 30.9(L) 38.9 - 50.3 % [facility] Plt 177 150 - 400 K/cumm [facility] MPV 11.0 9.1 - 12.3 fL [facility] RBC 3.44(L) 4.30 - 5.80 M/cumm [facility] MCV 89.8 81.3 - 96.4 fL [facility] MCH 28.5 27.1 - 33.3 pg [facility] MCHC 31.7(L) 32.3 - 35.7 g/dL [facility] RDW CV 14.6 11.1 - 14.9 % [facility] RDW SD 48.5(H) 35.7 - 48.1 fL [facility] NRBC abs 0.00 0.00 - 0.01 K/cumm [facility] Blood 02/17/2025 4:32 PM CDT 02/17/2025 4:44 PM CDT us Juanita Rogers MD LAB BLOOD ORDERABLES Final Result [facility] Department [place] [address] * Blood culture Blood Peripheral (02/17/2025 4:32 PM CDT) Report Final Report: No growth Blood (Peripheral) 02/17/2025 4:32 PM CDT 02/17/2025 4:48 PM CDT Narrative [facility] - 02/22/2025 7:00 AM CDT Received [...] performance characteristics have been verified by the [facility]. For questions about this culture, contact the Microbiology Laboratory at [phone]. Interpretive data was last revised on 24. Juanita Rogers MD LAB MICROBIOLOGY - GENERAL ORDERABLES Final Result [facility] Department [place] [address] * Blood culture Blood Peripheral (02/17/2025 4:32 PM CDT) Report Final Report: No growth Blood (Peripheral) 02/17/2025 4:32 PM CDT 02/17/2025 4:[address] [facility] - 02/22/2025 7:00 AM CDT Received [...] performance characteristics have been verified by the [facility]. For questions about this culture, contact the Microbiology Laboratory at [phone]. Interpretive data was last revised on 24. Juanita Rogers MD LAB MICROBIOLOGY - GENERAL ORDERABLES Final Result [facility] Department [place] [address] * (ABNORMAL) Comprehensive metabolic panel (02/17/2025 4:32 PM CDT) Pathologist [facility] Sodium 144 135 - 145 mmol/L Potassium, pl 3.3 3.3 - 4.9 mmol/L [facility] Chloride 104 97 - 110 mmol/L [facility] CO2 28 22 - 32 mmol/L [facility] Anion gap 12 2 - 15 mmol/L [facility] BUN 19 6 - 25 mg/dL [facility] Creatinine 1.05 0.80 - 1.30 mg/dL [facility] Glucose 98 70 - 199 mg/dL [facility] Comment: Interpretive Data Fasting glucose >/= [...] 2022. Calcium 8.4(L) 8.5 - 10.3 mg/dL [facility] Bilirubin, total 0.5 0.1 - 1.2 mg/dL [facility] Protein, pl 6.4(L) 6.5 - 8.5 g/dL [facility] Albumin 3.1(L) 3.5 - 5.0 g/dL [facility] Alk phos 87 40 - 130 Units/L [facility] ALT 16 7 - 55 Units/L [facility] AST 18 10 - 50 Units/L [facility] Blood 02/17/2025 4:32 PM CDT 02/17/2025 4:43 PM CDT us Juanita Rogers MD LAB BLOOD ORDERABLES Final Result [facility] Department [place] [address] * (ABNORMAL) Urinalysis reflex to microscopic and culture Urine (02/17/2025 3:48 PM CDT) Color, ur Straw Yellow Clarity, ur Clear Clear [facility] Specific gravity, ur 1.015 1.003 - 1.030 [facility] pH, urine 6.0 [facility] Comment: Interpretive Data U rine pH is affected by diet, medications, systemic acid-base disturbances, and renal tubular function. pH may affect urinary stone formation. For example, urine pH below 6.0 may help reduce the tendency for calcium phosphate stones and pH greater than 6.0 may reduce the tendency for uric acid stone formation. Source: [facility] [place] Current Interpretive Data was last revised on 2017 Protein, ur ql Trace Negative [facility] Glucose, ur ql Negative Negative [facility] Ketones, ur Trace Negative [facility] Bilirubin, ur Negative Negative [facility] Blood, ur Negative Negative [facility] Urobilinogen, ur <2.0 <2.0 mg/dL [facility] Nitrite, ur Negative Negative [facility] Leukocyte esterase, ur Trace(A) Negative [facility] UA reflex comment Reflex to microscopic UA will be performed. [facility] Urine 02/17/2025 3:48 PM CDT 02/17/2025 4:42 PM CDT Jean Marie Reid MD LAB MICROBIOLOGY - GENE RAL ORDERABLES Final Result Performing Organization Address [facility] Co de Phone Number [facility] Department [place] [address] * Urinalysis, microscopic only (02/17/2025 3:48 PM CDT) WBC, ur 0-5 0 - 5 /HPF RBC, ur 0-2 0 - 2 /HPF [facility] Epithelial cells, squamous, ur 1-5 0 - 5 /HPF [facility] Urine 02/17/2025 3:48 PM CDT 02/17/2025 4:42 PM CDT Jean Marie Reid MD LAB URINE ORDERABLES Fi nal Result Performing Organization Address [facility] Co de Phone Number [facility] Department [place] [address] * Urine culture Urine, suprapubic catheter (02/17/2025 3:48 PM CDT) Report Final Report: Less than 100,000 colonies/mL (clinically insignificant growth based on current clinical standards) Organism (CLINICALLY INSIGNIFICANT GROWTH [facility] Urine, suprapubic catheter 02/17/2025 3:48 PM CDT 02/17/2025 4:40 PM CDT Narrative [facility] - 02/18/2025 6:14 PM CDT Specimen received in a sterile container. Indications for Culture:->Recent positive UA Testing performed by [facility] ([phone]) Jean Marie Reid MD LAB MICROBIOLOGY - GENE RAL ORDERABLES Final Result Performing Organization Address [facility] Co de Phone Number [facility] [place] [address] * COLONOSCOPY (01/01/2020 8:32 AM CDT) Anatomical Region Laterality Modality Other Narrative Procedure Note Madi Melendez MD - 01/01/2020 8:32 AM CDT ENDOSCOPY LAB Patient Name: Jerome Askew Procedure Date: 01/01/2020 8:32 AM Admit Type: Outpatient Room: [facility] Date of : 1950 Instrument Name: [id number] Gender: Male Note Status: Finalized Procedure: Colonoscopy Indications: Abdominal pain in the left lower quadrant,constipation, date of last scope unknown, better with [id number] Comorbidities spastic paraplegia Providers: Madi Melendez M.D. [...] 5 years for surveillance given polyp discovery.Continue [address] Attending Participation: I personally performed the entire [...] ago Cortney Viveros RN 02/10/2021 04/23/2024 Insurance IDPA MEDICARE [facility] Address: [id number] [place] [address] [id number] [place] [address] [place] MEDICARE [employer] [facility] [place] [facility] [id number] [place] [address] MEDICARE * Guarantor: Jerome Askew Account Type Relation to Patient Date of Phone Billing Address Personal/Family Self 1950 [facility] [id number] [place] [address] MEDICARE [facility] Address: [address] [address] [place] [address] IDPA Advance Directives For more information, please contact: [phone] Documents on File Type Date Recorded Patient Surgical Dental Assistant Expl anation ADVANCE DIRECTIVE 03/15/2025 7:55 AM POLST ADVANCE DIRECTIVE 02/25/2025 11:32 AM POLS T ADVANCE DIRECTIVE 02/22/2025 11:19 AM POLS T ADVANCE DIRECTIVE 02/11/2021 10:49 AM DNR ADVANCE DIRECTIVE 12/27/2019 8:11 AM DNR ADVANCE DIRECTIVE 06/15/2013 12:00 AM POW ER OF PAYMENT COLLECTOR FINANCIAL/MEDICAL * Full Code (Latest Code Status [...] 10:50 PM 10/27/2023 7:11 PM Care Teams Belt Repairer Relationship Specialty Start Date End Date Shant Loaiza MD [address] [facility] [place] [address] PCP - General Internal Medicine 04/04/25
--- OUTSIDE RECORDS SUMMARY | 2025-04-30 15:43 | XMS_ITS | Encounter Summary ---
Author Organization [facility] Address [address] [place] [address] Care Team Providers Care Horticulturalist Name Role Phone Unavailable Primary Care Provider Unavailabl e Encounter Details Date Type Department Care Team (Late st Contact Info) Description 03/16/2006 Outpatient Historical [facility] Adult Critical Care [address] [address] Venkatesh Yang MD Social History Tobacco Use Types Packs/Day Years Used Date Smoking Tobacco: Never Assessed Sex and Gender Information Value Date Recorded Sex Assigned at Not on file Legal Sex Male 3:46 AM RN CASE MANAGER HOSPICE Gender Identity Not on file Sexual Orientation Not on file documented as of this encounter Plan of Treatment Not on file documented as of this encounter Visit Diagnoses Not on filedocumented in this encounter
--- OUTSIDE RECORDS SUMMARY | 2025-04-30 15:43 | XMS_ITS | Clinical Summary ---
Author Organization [facility] [employer] Address [address] [facility] [place] [address] Care Team Providers Care Photovoltaic Panel Installer Name Role Phone Rod Strauss MD Primary Care Provider [phone] Source Comments [facility] [employer],non-owned Affiliates and Associated Physician Practices is amultiple site organization consisting of ambulatory clinics and hospital sitesin [place], [place], [place] and [place]. This disclosure is being madepursuant to the Care Everywhere program and may not contain all information available regarding this patient. 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 Follows with [facility]. 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 - CT Head today. - [...] Department Care Team Description 03/13/2025 Lab Requisition [facility] [address] [place] [id number] Unknown, Provider from Last 3 Months Social [...] medical care, and heating? Patient declined 05/31/2024 [facility] - Occupational Stress [...] any time in the past 12 m [facility], were you homeless or living in a alf (including now)? Patient declined 05/31/2024 Sex and Gender Information Value Date Recorded Sex Assigned at Not on file Legal Sex Male 5:23 PM HARBOR POLICE LAUNCH COMMANDER Gender Identity Not on file Sexual Orientation Not on file Last Filed Vital Signs Vital Sign Reading Time Taken Comments Blood Pressure 135/77 06/15/2024 11:48 AM HARBOR POLICE LAUNCH COMMANDER Pulse 74 06/15/2024 11:48 AM HARBOR POLICE LAUNCH COMMANDER Temperature 36.4 C (97.6 F) 06/15/2024 8:35 AM HARBOR POLICE LAUNCH COMMANDER Respiratory Rate 16 06/15/2024 11:48 AM HARBOR POLICE LAUNCH COMMANDER Oxygen Saturation 97% 06/15/2024 11:48 AM HARBOR POLICE LAUNCH COMMANDER Inhaled Oxygen Concentration 40% 06/04/2024 9 :43 AM HARBOR POLICE LAUNCH COMMANDER Weight 88.5 kg (195 lb) 06/15/2024 8:35 AM HARBOR POLICE LAUNCH COMMANDER Height 190.5 cm (6' 3) 06/15/2024 8:35 AM HARBOR POLICE LAUNCH COMMANDER Body Mass Index 24.37 06/15/2024 8:35 AM HARBOR POLICE LAUNCH COMMANDER Plan of Treatment Upcoming Encounters Date Type Department Care Team (Late st Contact Info) Description 05/14/2025 9:00 AM HARBOR POLICE LAUNCH COMMANDER Office Visit [facility] - Urology [address] [facility] [place] [address] Rustam Bernabe PA [address] [place] [address] Health Maintenance Due Date Last [...] this topic Medical Devices Implanted Type Area Securities Adviser Device Identifier Shelf Expiration Date Model / Serial / Lot Synchromed Iii Pump Implanted:Qty: 1 on 06/04/2024 by Deshawn Schultz MD at [facility] Left: Abdomen [employer] 08/18/2025 8667-40 / [id number] / Ascenda Implanted:Qty: 1 on 06/04/2024 by Deshawn Schultz MD at [facility] Left: Abdomen [employer] 12/14/2024 [id number] / / [id number] Procedures Procedure Name Priority Date/Time Associated Diagnosis Comments DIFFERENTIAL MANUAL STAT 03/13/2025 4 :40 PM CDT COMPREHENSIVE METABOLIC PANEL STAT 03/13/2025 4:40 PM CDT CBC W AUTO DIFFERENTIAL STAT 03/13/2025 4:40 PM CDT HEPATITIS C AB SCREEN RFLX NAAT QUANT STAT 06/06/2024 11:49 AM HARBOR POLICE LAUNCH COMMANDER from Last 3 Months or Most Recently [...] - 1.00 x10E9/L 03/13/2025 6:26 PM CDT [facility] RBC Morphology NORMAL 03/13/2025 6:26 PM CDT [facility] Blood BLOOD SPECIMEN / Unknown 03/13/2025 4:40 PM CDT 03/13/2025 5:42 PM CDT us Provider Unknown LAB - HEMATOLOGY ORDERABLES Fin al Result [facility] [address] [place] [address] * (ABNORMAL) CBC WITH DIFFERENTIAL (03/13/2025 4:40 PM CDT) WBC 15.3(H) 4.0 - 10.7 x10E9/L 03/13/2025 6:26 PM CDT [facility] RBC Count 2.83(L) 4.30 - 5.80 x10E12/L 03/13/2025 6:26 PM CDT [facility] Hemoglobin 7.9(L) 13.3 - 17.5 g/dL 03/13/2025 6:26 PM CDT [facility] Hematocrit 25.5(L) 38.7 - 51.1 % 03/13/2025 6:26 PM T [facility] MCV 90.1 80.0 - 98.0 fL 03/13/2025 6:26 PM CDT [facility] MCH 27.9 26.7 - 33.6 pg 03/13/2025 6:26 PM CDT [facility] MCHC 31.0(L) 31.7 - 36.3 g/dL 03/13/2025 6:26 PM CDT [facility] RDW-CV 15.7(H) 11.3 - 14.8 % 03/13/2025 6:26 PM CDT [facility] Platelet Count 266 150 - 420 x10E9/L 03/13/2025 6:26 PM CDT [facility] MPV 10.8 7.8 - 11.4 fL 03/13/2025 6:26 PM CDT [facility] Blood BLOOD SPECIMEN / Unknown 03/13/2025 4:40 PM CDT 03/13/2025 5:42 PM CDT us Provider Unknown LAB - HEMATOLOGY ORDERABLES Fin al Result [facility] [address] [place] [address] * (ABNORMAL) COMPREHENSIVE METABOLIC PANEL (03/13/2025 4:40 PM CDT) [facility] Glucose 118(H) 70 - 99 mg/dL 03/13/2025 6:07 PM CDT [facility] Sodium 135(L) 136 - 145 mmol/L 03/13/2025 6:07 PM CDT [facility] Potassium 3.6 3.5 - 5.1 [...] - 16 mmol/L 03/13/2025 6:07 PM CDT [facility] BUN 23 7 - 26 mg/dL 03/13/2025 6:07 PM CDT [facility] Creatinine 0.74 0.72 - 1.25 [...] - 1.2 mg/dL 03/13/2025 6:07 PM CDT [facility] eGFR by CKD-EPI >90 >=90 mL/min/1.7 3 m2 03/13/2025 6:07 PM CDT [facility] Comment:Estimated Glomerular Filtration Rate (eGFR) calculated using the CKD-EPI Creatinine Equation (2020), per the National Kidney Foundation and [place] Society of Nephrology recommendations. Blood BLOOD SPECIMEN / Unknown Venipuncture / Unknown 03/13/2025 4:40 PM CDT 03/13/2025 5:42 PM CDT Provider Unknown LAB - CHEMISTRY ORDERABLES Johanne l Result Performing Organization Address City/[facility]/ZIP Co de Phone Number [facility] [address] [place] [address] * HEPATITIS C AB SCREEN RFLX NAAT QUANT (06/06/2024 11:49 AM HARBOR POLICE LAUNCH COMMANDER) Hepatitis C Antibody Non-react lottie Non-reac tive 06/06/2024 1:01 PM HARBOR POLICE LAUNCH COMMANDER [facility] Comment:Hepatitis C Antibody screen [...] Lab Venipuncture / Unknown 06/06/2024 11:49 AM HARBOR POLICE LAUNCH COMMANDER 06/06/2024 12:05 PM HARBOR POLICE LAUNCH COMMANDER Salena Griffin FASHION EDITOR-SUPPLY REQUIREMENTS OFFICER LAB - CHEMISTRY ORDERABLES F inal Result [facility] [address] [place] [phone] [phone] from Last 3 Months or Most Recently Relevant to Health Maintenance Additional Health Concerns Infection Onset Date Last Indicated ESBL GNR 06/01/2024 06/01/2024 Insurance [facility] [place] [address] MEDICARE Advance Directives * Full Code (Latest Code Status on File) Date Activated Date Inactivated Comments 05/31/2024 11:27 PM 06/09/2024 8:37 PM Care Teams Photovoltaic Panel Installer Relationship Specialty Start Date End Date Rod Strauss MD [address] [place] [id number] PCP - General Internal Medicine 06/15/24
--- OUTSIDE RECORDS SUMMARY | 2025-04-30 15:43 | XMS_ITS | Encounter Summary ---
Author Organization [employer] Address [address] [place] [address] Care Team Providers Care Airport Representative Name Role Phone Unavailable Primary Care Provider Unavailabl e Encounter Details Date Type Department Care Team (Late st Contact Info) Description 01/13/2006 Outpatient Historical [facility] Support Serv. (Adt Cardiology-[facility]) [address] [place] [address] Phyllis Bajwa MD [address] [address] [address] [place] [address] Social History Tobacco Use Types Packs/Day Years Used Date Smoking Tobacco: Never Assessed Sex and Gender Information Value Date Recorded Sex Assigned at Not on file Legal Sex Male 3:46 AM WORLD HISTORY TEACHER Gender Identity Not on file Sexual Orientation Not on file documented as of this encounter Plan of Treatment Not on file documented as of this encounter Visit Diagnoses Not on filedocumented in this encounter
--- OUTSIDE RECORDS SUMMARY | 2025-04-30 15:44 | XMS_ITS | Encounter Summary ---
Author Organization [facility] Address [address] [place] [address] Care Team Providers Care Medical Sales Consultant Name Role Phone Unavailable Primary Care Provider Unavailabl e Encounter Details Date Type Department Care Team (Late st Contact Info) Description 01/06/2006 Outpatient Historical [facility] Trauma and General Surgery [address] [facility] [address] [facility] [place] [address] Jayden James MD [address] [facility] [address] [facility] [place] [address] Social History Tobacco Use Types Packs/Day Years Used Date Smoking Tobacco: Never Assessed Sex and Gender Information Value Date Recorded Sex Assigned at Not on file Legal Sex Male 3:46 AM CORRECTIONAL COUNSELOR Gender Identity Not on file Sexual Orientation Not on file documented as of this encounter Plan of Treatment Not on file documented as of this encounter Visit Diagnoses Not on filedocumented in this encounter
--- OUTSIDE RECORDS SUMMARY | 2025-04-30 15:44 | XMS_ITS | Encounter Summary ---
Author Organization [employer] Address [address] [place] [address] Care Team Providers Care Milling Machine Set Up Operator Name Role Phone Unavailable Primary Care Provider Unavailabl e Encounter Details Date Type Department Care Team (Latest Contact Info) Description 03/19/2006 Inpatient Historical [facility] [place] [address] [place] [address] Other Specified Rehabilitation Procedure (Primary Dx) Social History Tobacco Use Types Packs/Day Years Used Date Smoking Tobacco: Never Assessed Sex and Gender Information Value Date Recorded Sex Assigned at Not on file Legal Sex Male 3:46 AM SUPERVISOR INSPECTION AND TESTING Gender Identity Not on file Sexual Orientation [...] ORDERABLES Final Re sult Performing Organization Address [facility] Phone Number INTERFACE SYSTEM Refer to clinic/hospital department * C-REACTIVE PROTEIN (04/05/2006 5:15 AM CDT) Pathologist [facility] CRP 0.2 0.0 - 0.8 mg/dL INTERFACE SYSTEM 04/05/2006 5:15 AM CDT [facility] CHEMISTRY ORDERABLES Final Res ult Performing Organization Address [facility] Phone Number INTERFACE SYSTEM Refer to clinic/hospital department * (ABNORMAL) VANCOMYCIN LEVEL TROUGH (03/31/2006 11:15 AM CDT) Pathologist [facility] VANCOMYCIN, TROUGH 18.3(AA) 5.0 - 15.0 ug/mL INTERFACE SYSTEM Comment: Vancomycin Trough Toxic Level= >15.0 ug/mL Results called to Amy_ at 03/31/2006 12:05 PM and read back verified. 03/31/2006 11:1 5 AM CDT Sushil Arroyo MD CHEMISTRY ORDERABLES Final R esult Performing Organization Address [facility] Phone Number INTERFACE SYSTEM Refer to clinic/hospital department * (ABNORMAL) CBC WITH DIFFERENTIAL (03/29/2006 5:15 AM CDT) Pathologist [facility] NEUTROPHILS 64 45 - 70 % INTERFAC [...] ORDERABLES Final Res ult Performing Organization Address [facility] Phone Number INTERFACE SYSTEM Refer [...] Res ult Performing Organization Address [facility] Phone Number INTERFACE SYSTEM Refer to clinic/hospital department * C-REACTIVE PROTEIN (03/29/2006 5:15 AM CDT) CRP 0.3 0.0 - 0.8 mg/dL INTERFACE SYSTEM 03/29/2006 5:15 AM CDT us Keenan Mandujano MD CHEMISTRY ORDERABLES Final Resu lt Performing Organization Address [facility] Phone Number INTERFACE SYSTEM Refer [...] ORDERABLES Final Resu lt Performing Organization Address [facility] Phone Number INTERFACE SYSTEM Refer [...] ORDERABLES Final Re sult Performing Organization Address [facility] Phone Number INTERFACE SYSTEM Refer [...] INTERFACE SYSTEM 03/24/2006 12:1 0 PM CDT [employer] [facility] HEMATOLOGY ORDERABLES Final Re sult Performing Organization Address [facility] Phone Number INTERFACE SYSTEM Refer to clinic/hospital department * VANCOMYCIN LEVEL TROUGH (03/24/2006 12:10 PM CDT) VANCOMYCIN, TROUGH 11.3 5.0 - 15.0 ug/mL INTERFACE SYSTEM Comment: Vancomycin Trough Toxic Level= >15.0 ug/mL 03/24/2006 12:1 0 PM CDT [employer] [facility] CHEMISTRY ORDERABLES Final Res ult Performing Organization Address [facility] Phone Number INTERFACE SYSTEM Refer to clinic/hospital department * C-REACTIVE PROTEIN (03/24/2006 12:10 PM CDT) CRP 0.6 0.0 - 0.8 mg/dL INTERFACE SYSTEM 03/24/2006 12:1 0 PM CDT [employer] [facility] CHEMISTRY ORDERABLES Final Res ult Performing Organization Address [facility] Phone Number INTERFACE SYSTEM Refer [...] ORDERABLES Final Res ult Performing Organization Address City/[facility] Co de Phone Number INTERFACE [...] INTERFACE SYSTEM 03/23/2006 11:3 0 AM CDT [employer] [facility] HEMATOLOGY ORDERABLES Final Re sult Performing Organization Address [facility] de Phone Number INTERFACE SYSTEM Refer to clinic/hospital department * (ABNORMAL) CBC WITH DIFFERENTIAL (03/23/2006 11:30 AM CDT) Pathologist [facility] WBC 6.1 4.0 - 9.8 K/uL INTERFACE [...] INTERFACE SYSTEM 03/23/2006 11:3 0 AM CDT [employer] [facility] HEMATOLOGY ORDERABLES Final Re sult Performing Organization Address City/[facility] Co de Phone Number INTERFACE SYSTEM Refer to clinic/hospital department * VANCOMYCIN LEVEL TROUGH (03/23/2006 11:30 AM CDT) VANCOMYCIN, TROUGH 6.2 5.0 - 15.0 ug/mL INTERFACE SYSTEM Comment: Vancomycin Trough Toxic Level= >15.0 ug/mL 03/23/2006 11:3 0 AM CDT [employer] [facility] CHEMISTRY ORDERABLES Final Res ult Performing Organization Address [facility] Phone Number INTERFACE SYSTEM Refer to clinic/hospital department * (ABNORMAL) C-REACTIVE PROTEIN (03/23/2006 11:30 AM CDT) CRP 1.0(H) 0.0 - 0.8 mg/dL INTERFACE SYSTEM 03/23/2006 11:3 0 AM CDT us [facility] CHEMISTRY ORDERABLES Final Res ult Performing Organization Address [facility] Phone Number INTERFACE SYSTEM Refer [...] INTERFACE SYSTEM 03/23/2006 11:3 0 AM CDT [facility] ORDERABLES Final Res ult Performing Organization Address [facility] Phone Number INTERFACE SYSTEM Refer [...] ORDERABLES Final R esult Performing Organization Address [facility] Phone Number INTERFACE SYSTEM Refer [...] /HPF INTERFACE SYSTEM 03/22/2006 8:30 PM CDT [employer] [facility] URINE ORDERABLES Final Result Performing Organization Address [facility] Phone Number INTERFACE SYSTEM Refer [...] [facility] Performing Organization Address [facility] de Phone Number INTERFACE SYSTEM [...] [facility] Performing Organization Address City/[facility] de Phone Number INTERFACE SYSTEM [...] HEMATOLOGY ORDERABLES Final Result Performing Organization Address [facility] Phone Number INTERFACE SYSTEM Refer [...] HEMATOLOGY ORDERABLES Final Result Performing Organization Address [facility] Phone Number INTERFACE SYSTEM Refer [...] ORDERABLES Final R esult Performing Organization Address [facility] Phone Number INTERFACE SYSTEM Refer [...] ORDERABLES Final Resul t Performing Organization Address [facility] Phone Number INTERFACE SYSTEM Refer to clinic/hospital department documented in this encounter Visit Diagnoses Diagnosis Other specified rehabilitation procedure(V57.89)- Primary Other specified rehabilitation procedure documented in this encounter
--- OUTSIDE RECORDS SUMMARY | 2025-04-30 15:44 | XMS_ITS | Encounter Summary ---
Author Organization [facility] Address [address] [place] [address] Care Team Providers Care Precision Thread Grinder Operator Name Role Phone Unavailable Primary Care Provider Unavailabl e Encounter Details Date Type Department Care Team (Late st Contact Info) Description 01/08/2006 Outpatient Historical [facility] Trauma and General Surgery [address] [facility] [address] [facility] [place] [address] Jayden James MD [address] [facility] [address] [facility] [place] [address] Social History Tobacco Use Types Packs/Day Years Used Date Smoking Tobacco: Never Assessed Sex and Gender Information Value Date Recorded Sex Assigned at Not on file Legal Sex Male 3:46 AM CD 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
--- OUTSIDE RECORDS SUMMARY | 2025-04-30 15:44 | XMS_ITS | Clinical Summary ---
Author Organization [facility] Address [address] [place] [address] Care Team Providers Care Auto Body Mechanic Apprentice Name Role Phone Unavailable Primary Care [...] daily. 06/14/20 Active naloxone (NARCAN) 4 mg/spray [place], Non-Aerosol Administer 4 mg in each nostril [...] (04/21/2023): Last Assessment & Plan: H/o L HEAD SCHOOL CUSTODIAN infarct 2019, continue asa/statin Urinary tract infection [...] oxycodone prn. Baclofen pump rx'd by the [facility]. Iron deficiency anemia, unspecified 10/26/2012 Gastric [...] Uses wheelchair at baseline. Resides at [facility]. Has baclofen pump/neurostimulator in place. 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
--- OUTSIDE RECORDS SUMMARY | 2025-04-30 15:44 | XMS_ITS | Encounter Summary ---
Author Organization [facility] Address [address] [place] [address] Care Team Providers Care Water Taxi Ferry Operator Name Role Phone Unavailable Primary Care Provider Unavailabl e Encounter Details Date Type Department Care Team (Late st Contact Info) Description 01/04/2006 Outpatient Historical [facility] Trauma and General Surgery [address] [facility] 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
--- OUTSIDE RECORDS SUMMARY | 2025-04-30 15:44 | XMS_ITS | Encounter Summary ---
Author Organization [facility] Address [address] [place] [address] Care Team Providers Care Safety And Occupational Health Manager Name Role Phone Unavailable Primary Care Provider Unavailabl e Encounter Details Date Type Department Care Team (Late st Contact Info) Description 01/11/2006 Outpatient Historical [facility] Trauma and General Surgery [address] [facility] [address] [id number] [place] [address] [place] [address] Social History Tobacco Use Types Packs/Day Years Used Date Smoking Tobacco: Never Assessed Sex and Gender Information Value Date Recorded Sex Assigned at Not on file 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
--- OUTSIDE RECORDS SUMMARY | 2025-04-30 15:44 | XMS_ITS | Encounter Summary ---
Author Organization [facility] Address [address] [place] [address] Care Team Providers Care Street Department Dispatcher Name Role Phone Unavailable Primary Care Provider Unavailabl e Encounter Details Date Type Department Care Team (Late st Contact Info) Description 01/11/2006 Outpatient Historical [facility] Trauma and General Surgery [address] [place] [id number] [place] [address] [place] [address] Social History Tobacco Use Types Packs/Day Years Used Date Smoking Tobacco: Never Assessed Sex and Gender Information Value Date Recorded Sex Assigned at Not on file 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
--- OUTSIDE RECORDS SUMMARY | 2025-04-30 15:44 | XMS_ITS | Encounter Summary ---
Author Organization [facility] Address 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 Phone Number INTERFACE SYSTEM Refer [...] Res ult Performing Organization Address [facility] Phone Number INTERFACE SYSTEM Refer [...] ORDERABLES Final Resu lt Performing Organization Address [facility] Phone Number INTERFACE SYSTEM Refer to clinic/hospital department * (ABNORMAL) POC GLUCOSE (01/08/2006 9:26 PM CDT) GLUCOSE POC 133(H) 65 - 109 mg/dL INTERFACE SYSTEM 01/08/2006 9:26 PM CDT José Fine MD POINT OF CARE TESTING Final Result Performing Organization Address [facility] Phone Number INTERFACE SYSTEM Refer to clinic/hospital department * (ABNORMAL) POC GLUCOSE (01/08/2006 5:25 PM CDT) GLUCOSE POC 125(H) 65 - 109 mg/dL INTERFACE SYSTEM 01/08/2006 5:25 PM CDT José Fine MD POINT OF CARE TESTING Final Result Performing Organization Address [facility] Phone Number INTERFACE SYSTEM Refer to clinic/hospital department * (ABNORMAL) POC GLUCOSE (01/08/2006 11:50 AM CDT) GLUCOSE POC 122(H) 65 - 109 mg/dL INTERFACE SYSTEM 01/08/2006 11:5 0 AM CDT us José Fine MD POINT OF CARE TESTING Final Result Performing Organization Address [facility] Phone Number INTERFACE SYSTEM Refer to clinic/hospital department * (ABNORMAL) POC GLUCOSE (01/08/2006 5:35 AM CDT) GLUCOSE POC 128(H) 65 - 109 mg/dL INTERFACE SYSTEM 01/08/2006 5:35 AM CDT us José Fine MD POINT OF CARE TESTING Final Result Performing Organization Address [facility] Phone Number INTERFACE SYSTEM Refer to clinic/hospital department * (ABNORMAL) POC GLUCOSE (01/07/2006 8:48 PM CDT) GLUCOSE POC 124(H) 65 - 109 mg/dL INTERFACE SYSTEM 01/07/2006 8:48 PM CDT us José Fine MD POINT OF CARE TESTING Final Result Performing Organization Address [facility] Phone Number INTERFACE SYSTEM Refer to clinic/hospital department * (ABNORMAL) POC GLUCOSE (01/07/2006 4:51 PM CDT) GLUCOSE POC 121(H) 65 - 109 mg/dL INTERFACE SYSTEM 01/07/2006 4:51 PM CDT us José Fine MD POINT OF CARE TESTING Final Result Performing Organization Address [facility] Phone Number INTERFACE SYSTEM Refer to clinic/hospital department * (ABNORMAL) POC GLUCOSE (01/07/2006 11:16 AM CDT) GLUCOSE POC 119(H) 65 - 109 mg/dL INTERFACE SYSTEM 01/07/2006 11:1 6 AM CDT us José Fine MD POINT OF CARE TESTING Final Result Performing Organization Address [facility] de Phone Number INTERFACE SYSTEM Refer to clinic/hospital department * (ABNORMAL) POC GLUCOSE (01/07/2006 6:24 AM CDT) GLUCOSE POC 114(H) 65 - 109 mg/dL INTERFACE SYSTEM 01/07/2006 6:24 AM CDT us José Fine MD POINT OF CARE TESTING Final Result Performing Organization Address [facility] de Phone Number INTERFACE SYSTEM Refer [...] Resu lt Performing Organization Address [facility] de Phone Number INTERFACE SYSTEM Refer [...] Final Resu lt Performing Organization Address [facility] de Phone Number INTERFACE SYSTEM Refer to clinic/hospital department * PHOSPHORUS (01/07/2006 5:30 AM CDT) PHOSPHORUS 3.1 2.5 - 4.5 mg/dL INTERFACE SYSTEM 01/07/2006 5:30 AM CDT Terry Cole MD CHEMISTRY ORDERABLES Final Resul t Performing Organization Address [facility] Phone Number INTERFACE SYSTEM Refer to clinic/hospital department * MAGNESIUM LEVEL (01/07/2006 5:30 AM CDT) MAGNESIUM 2.3 1.5 - 2.5 mg/dL INTERFACE SYSTEM 01/07/2006 5:30 AM CDT Terry Cole MD CHEMISTRY ORDERABLES Final Resul t Performing Organization Address [facility] Phone Number INTERFACE SYSTEM Refer [...] Final Resul t Performing Organization Address [facility] de Phone Number INTERFACE SYSTEM Refer to clinic/hospital department * (ABNORMAL) POC GLUCOSE (01/07/2006 12:49 AM CDT) GLUCOSE POC 114(H) 65 - 109 mg/dL INTERFACE SYSTEM 01/07/2006 12:4 9 AM CDT us José Fine MD POINT OF CARE TESTING Final Result Performing Organization Address [facility] Co de Phone Number INTERFACE SYSTEM Refer to clinic/hospital department * (ABNORMAL) POC GLUCOSE (01/06/2006 5:40 PM CDT) COMMENT, GLU POC Notified RN INTERFACE SYSTEM GLUCOSE POC 128(H) 65 - 109 mg/dL INTERFACE SYSTEM 01/06/2006 5:40 PM CDT us José Fine MD POINT OF CARE TESTING Final Result Performing Organization Address [facility] Phone Number INTERFACE SYSTEM Refer to clinic/hospital department * (ABNORMAL) POC GLUCOSE (01/06/2006 11:43 AM CDT) COMMENT, GLU POC Notified RN INTERFACE SYSTEM GLUCOSE POC 120(H) 65 - 109 mg/dL INTERFACE SYSTEM 01/06/2006 11:4 3 AM CDT us José Fine MD POINT OF CARE TESTING Final Result Performing Organization Address [facility] de Phone Number INTERFACE SYSTEM Refer to clinic/hospital department * (ABNORMAL) POC GLUCOSE (01/06/2006 5:48 AM CDT) GLUCOSE POC 120(H) 65 - 109 mg/dL INTERFACE SYSTEM 01/06/2006 5:48 AM CDT us José Fine MD POINT OF CARE TESTING Final Result Performing Organization Address [facility] Co de Phone Number INTERFACE SYSTEM [...] Final Resu lt Performing Organization Address [facility]/ZIP Co de Phone Number INTERFACE SYSTEM Refer [...] Resul t Performing Organization Address [facility] de Phone Number INTERFACE SYSTEM Refer [...] Final Resul t Performing Organization Address [facility]/ZIP Co de Phone Number INTERFACE SYSTEM Refer to clinic/hospital department * (ABNORMAL) POC GLUCOSE (01/06/2006 1:00 AM CDT) GLUCOSE POC 142(H) 65 - 109 mg/dL INTERFACE SYSTEM 01/06/2006 1:00 AM CDT José Fine MD POINT OF CARE TESTING Final Result Performing Organization Address [facility] Phone Number INTERFACE SYSTEM Refer to clinic/hospital department * (ABNORMAL) POC GLUCOSE (01/05/2006 5:49 PM CDT) GLUCOSE POC 137(H) 65 - 109 mg/dL INTERFACE SYSTEM 01/05/2006 5:49 PM CDT José Fine MD POINT OF CARE TESTING Final Result Performing Organization Address [facility] Phone Number INTERFACE SYSTEM Refer to clinic/hospital department * (ABNORMAL) POC GLUCOSE (01/05/2006 11:57 AM CDT) GLUCOSE POC 133(H) 65 - 109 mg/dL INTERFACE SYSTEM 01/05/2006 11:5 7 AM CDT José Fine MD POINT OF CARE TESTING Final Result Performing Organization Address [facility] Phone Number INTERFACE SYSTEM Refer to clinic/hospital department * (ABNORMAL) POC GLUCOSE (01/05/2006 5:59 AM CDT) GLUCOSE POC 142(H) 65 - 109 mg/dL INTERFACE SYSTEM 01/05/2006 5:59 AM CDT José Fine MD POINT OF CARE TESTING Final Result Performing Organization Address [facility] Phone Number INTERFACE SYSTEM Refer [...] K/uL INTERFACE SYSTEM 01/05/2006 4:00 AM CDT [facility] [employer] Zounds[employer] HEMATOLOGY ORDERABLES Final Result Performing Organization Address [facility] Phone Number INTERFACE SYSTEM Refer [...] fL INTERFACE SYSTEM 01/05/2006 4:00 AM CDT [employer] HEMATOLOGY ORDERABLES Final Result Performing Organization Address [facility] Phone Number INTERFACE SYSTEM Refer [...] for unfractionated heparin 01/05/2006 4:00 AM CDT [employer]By[employer]tima Neocase SoftwarejessicaiFrat Wars HEMATOLOGY ORDERABLES Final Result Performing Organization Address [facility] Phone Number INTERFACE SYSTEM Refer to clinic/hospital department * PHOSPHORUS (01/05/2006 4:00 AM CDT) PHOSPHORUS 2.9 2.5 - 4.5 mg/dL INTERFACE SYSTEM 01/05/2006 4:00 AM CDT Luis Eduardo [employer] Softwarebrandt CHEMISTRY ORDERABLES Final R esult Performing Organization Address [facility] Phone Number INTERFACE SYSTEM Refer to clinic/hospital department * MAGNESIUM LEVEL (01/05/2006 4:00 AM CDT) MAGNESIUM 2.2 1.5 - 2.5 mg/dL INTERFACE SYSTEM 01/05/2006 4:00 AM CDT [employer]tima ZoundsamintaiFrat [employer] CHEMISTRY ORDERABLES Final R esult Performing Organization Address [facility] Phone Number INTERFACE SYSTEM Refer [...] R esult Performing Organization Address [facility] Phone Number INTERFACE SYSTEM Refer to clinic/hospital department * (ABNORMAL) POC GLUCOSE (01/04/2006 11:41 PM CDT) GLUCOSE POC 140(H) 65 - 109 mg/dL INTERFACE SYSTEM 01/04/2006 11:4 1 PM CDT us José Fine MD POINT OF CARE TESTING Final Result Performing Organization Address [facility] Phone Number INTERFACE SYSTEM Refer to clinic/hospital department * (ABNORMAL) POC GLUCOSE (01/04/2006 5:43 PM CDT) GLUCOSE POC 156(H) 65 - 109 mg/dL INTERFACE SYSTEM 01/04/2006 5:43 PM CDT us José Fine MD POINT OF CARE TESTING Final Result Performing Organization Address [facility] Phone Number INTERFACE SYSTEM Refer to clinic/hospital department * (ABNORMAL) POC GLUCOSE (01/04/2006 11:37 AM CDT) GLUCOSE POC 175(H) 65 - 109 mg/dL INTERFACE SYSTEM 01/04/2006 11:3 7 AM CDT us José Fine MD POINT OF CARE TESTING Final Result Performing Organization Address [facility] Phone Number INTERFACE SYSTEM Refer to clinic/hospital department * (ABNORMAL) POC GLUCOSE (01/04/2006 6:11 AM CDT) GLUCOSE POC 183(H) 65 - 109 mg/dL INTERFACE SYSTEM 01/04/2006 6:11 AM CDT José Fine MD POINT OF CARE TESTING Final Result Performing Organization Address [facility] Phone Number INTERFACE SYSTEM Refer [...] ORDERABLES F inal Result Performing Organization Address [facility] Phone Number INTERFACE SYSTEM Refer [...] ORDERABLES F inal Result Performing Organization Address [facility] Phone Number INTERFACE SYSTEM Refer to clinic/hospital department * PHOSPHORUS (01/04/2006 4:20 AM CDT) PHOSPHORUS 2.5 2.5 - 4.5 mg/dL INTERFACE SYSTEM 01/04/2006 4:20 AM CDT us Rayray Wilcox MD CHEMISTRY ORDERABLES Fi nal Result Performing Organization Address [facility] Phone Number INTERFACE SYSTEM Refer to clinic/hospital department * MAGNESIUM LEVEL (01/04/2006 4:20 AM CDT) MAGNESIUM 2.0 1.5 - 2.5 mg/dL INTERFACE SYSTEM 01/04/2006 4:20 AM CDT Rayray Wilcox MD CHEMISTRY ORDERABLES Fi nal Result Performing Organization Address [facility] Phone Number INTERFACE SYSTEM Refer [...] Re sult Performing Organization Address [facility]/ZIP Co de Phone Number INTERFACE SYSTEM Refer to clinic/hospital department * (ABNORMAL) POC GLUCOSE (01/04/2006 12:25 AM CDT) GLUCOSE POC 188(H) 65 - 109 mg/dL INTERFACE SYSTEM 01/04/2006 12:2 5 AM CDT José Fine MD POINT OF CARE TESTING Final Result Performing Organization Address [facility] de Phone Number INTERFACE SYSTEM Refer to clinic/hospital department * (ABNORMAL) POC GLUCOSE (01/03/2006 5:25 PM CDT) GLUCOSE POC 177(H) 65 - 109 mg/dL INTERFACE SYSTEM 01/03/2006 5:25 PM CDT José Fine MD POINT OF CARE TESTING Final Result Performing Organization Address [facility] de Phone Number INTERFACE SYSTEM Refer to clinic/hospital department * (ABNORMAL) POC GLUCOSE (01/03/2006 11:34 AM CDT) GLUCOSE POC 148(H) 65 - 109 mg/dL INTERFACE SYSTEM 01/03/2006 11:3 4 AM CDT José Fine MD POINT OF CARE TESTING Final Result Performing Organization Address [facility] de Phone Number INTERFACE SYSTEM Refer [...] ORDERABLES F inal Result Performing Organization Address [facility] Phone Number INTERFACE SYSTEM Refer [...] ORDERABLES F inal Result Performing Organization Address [facility] Phone Number INTERFACE SYSTEM Refer [...] ORDERABLES F inal Result Performing Organization Address [facility] Phone Number INTERFACE SYSTEM Refer [...] ORDERABLES F inal Result Performing Organization Address [facility] Number INTERFACE SYSTEM Refer to clinic/hospital department * PHOSPHORUS (01/03/2006 10:46 AM CDT) PHOSPHORUS 3.3 2.5 - 4.5 mg/dL INTERFACE SYSTEM 01/03/2006 10:4 6 AM CDT Rayray Wilcox MD CHEMISTRY ORDERABLES Fi nal Result Performing Organization Address [facility] Phone Number INTERFACE SYSTEM Refer to clinic/hospital department * MAGNESIUM LEVEL (01/03/2006 10:46 AM CDT) MAGNESIUM 1.8 1.5 - 2.5 mg/dL INTERFACE SYSTEM 01/03/2006 10:4 6 AM CDT Rayray Wilcox MD CHEMISTRY ORDERABLES Fi nal Result Performing Organization Address [facility] Phone Number INTERFACE SYSTEM Refer [...] CHEMISTRY ORDERABLES nal Result Performing Organization Address [facility] Phone Number INTERFACE SYSTEM Refer [...] drugs of abuse are available on the [facility] Intranet at: [email or web address] Select: Drugs of Abuse ? [facility] To inquire about any potential cross-reactivity of [...] URINE ORDERABLES Final Result Performing Organization Address [facility]/ZIP Co de Phone Number INTERFACE SYSTEM Refer [...]
--- OUTSIDE RECORDS SUMMARY | 2025-04-30 15:44 | XMS_ITS | Encounter Summary ---
Author Organization [facility] Address [address] [place] [address] Care Team Providers Care Licensed Sales Assistant Name Role Phone Unavailable Primary Care Provider Unavailabl e Encounter Details Date Type Department Care Team (Late st Contact Info) Description 05/13/2019 Lab Requisition [facility] [address] [place] [address] [facility], External Provider [address] [place] [address] Other fatigue Social History Tobacco Use Types Packs/Day Years Used Date Smoking Tobacco: Never Assessed Sex and Gender Information Value Date Recorded Sex Assigned at Not on file 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 Gender Identity Not on file Sexual Orientation Not on file documented as of this encounter Plan of Treatment Not on file documented as of this encounter Procedures Procedure Name Priority Date/Time Associated Diagnosis Comments CBC WITH DIFFERENTIAL Stat 05/13/2019 4:50 PM PRINTING ROLLER HANDLER Other fatigue BASIC METABOLIC PANEL Stat 05/13/2019 4:50 PM PRINTING ROLLER HANDLER Other fatigue documented in this encounter Results * (ABNORMAL) CBC WITH DIFFERENTIAL (05/13/2019 4:50 PM PRINTING ROLLER HANDLER) [facility] WBC 6.1 4.5 - 10.5 K/uL 05/13/2019 9:52 PM PRINTING ROLLER HANDLER [facility] RBC 4.04(L) 4.50 - 5.40 M/uL 05/13/2019 9:52 PM PRINTING ROLLER HANDLER [facility] HEMOGLOBIN 12.1(L) 13.6 - 16.5 g/dL 05/13/2019 9:52 PM PRINTING ROLLER HANDLER [facility] HEMATOCRIT 37.1(L) 40.0 - 48.0 % 05/13/2019 9:52 PM [facility] MCV 91.7 82.0 - 99.0 fL 05/13/2019 9:52 PM [facility] MCH 30.0 27.8 - 34.5 pg 05/13/2019 9:52 PM [facility] MCHC 32.7 32.5 - 35.5 g/dL 05/13/2019 9:52 PM [facility] RDW 14.9(H) 11.5 - 14.5 % 05/13/2019 9:52 PM [facility] PLATELETS 162 160 - 420 K/uL 05/13/2019 9:52 PM [facility] [employer] [facility] MPV 9.8 8.7 - 12.7 fL 05/13/2019 9:52 PM [facility] NEUTROPHILS 70 45 - 70 % 05/13/2019 9:52 PM [facility] LYMPHOCYTES 16 16 - 45 % 05/13/2019 9:52 PM [facility] MONOCYTES 10 3 - 13 % 05/13/2019 9:52 PM [facility] EOSINOPHILS 4 0 - 7 % 05/13/2019 9:52 PM [facility] BASOPHILS 1 0 - 2 % 05/13/2019 9:52 PM [facility] [employer] [facility] NEUTROPHIL ABSOLUTE 4.20 1.90 - 7.00 K/uL 05/13/2019 9:52 PM [facility] [employer] [facility] LYMPHOCYTE ABSOLUTE 0.90 K/uL 05/13/2019 9:52 PM [facility] MONOCYTE ABSOLUTE 0.60 K/uL 05/13/2019 9:52 PM [facility] EOSINOPHIL ABSOLUTE 0.30 0.00 - 0.70 K/uL 05/13/2019 9:52 PM [facility] BASOPHILS ABSOLUTE 0.00 K/uL 05/13/2019 9:52 PM [facility] [employer] [facility] Blood BLOOD SPECIMEN / Unknown Collection / Unknown 05/13/2019 4:50 PM PRINTING ROLLER HANDLER 05/13/2019 9:42 PM PRINTING ROLLER HANDLER us External Provider [facility] HEMATOLOGY ORDERABLES Fin al Result [facility] [employer] [facility] LESTER# [id number] [place] [address] * (ABNORMAL) BASIC METABOLIC PANEL (05/13/2019 4:50 PM PRINTING ROLLER HANDLER) SODIUM 143 136 - 145 mmol/L 05/13/2019 10:11 PM [facility] [employer] [facility] POTASSIUM 4.2 3.4 - 5.1 mmol/L 05/13/2019 10:11 PM [facility] [employer] [facility] CHLORIDE 104 98 - 107 mmol/L 05/13/2019 10:11 PM [facility] CO2 27 22 - 29 mmol/L 05/13/2019 10:11 PM [facility] CALCIUM 8.5(L) 8.6 - 10.4 mg/dL 05/13/2019 10:11 PM [facility] BUN 24(H) 6 - 20 mg/dL 05/13/2019 10:11 PM [facility] CREATININE 1.09 0.70 - 1.20 mg/dL 05/13/2019 10:11 PM [facility] Comment:The GFR result is no t clinically significant on patients <18 or >70 years of age. GLUCOSE 96 74 - 99 mg/dL 05/13/2019 10:11 PM [facility] [employer] [facility] GFR >60 mL/min/1.7 3 sq meter 05/13/2019 10:11 PM [facility] [employer] [facility] Comment: eGFR has not been validated [...] mL/min/1.7 3 sq meter 05/13/2019 10:11 PM PRINTING ROLLER HANDLER [facility] ANION GAP 12 8 - 16 mmol/L 05/13/2019 10:11 PM PRINTING ROLLER HANDLER [facility] Blood BLOOD SPECIMEN / Unknown Collection / Unknown 05/13/2019 4:50 PM PRINTING ROLLER HANDLER 05/13/2019 9:42 PM PRINTING ROLLER HANDLER External Provider [facility] CHEMISTRY ORDERABLES Johanne l Result [facility] CLIA# [id number] [place] [address] documented in this encounter Visit Diagnoses Diagnosis Other fatigue documented in this encounter
--- OUTSIDE RECORDS SUMMARY | 2025-04-30 15:44 | XMS_ITS | Encounter Summary ---
Author Organization [facility] Address 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
--- OUTSIDE RECORDS SUMMARY | 2025-04-30 15:44 | XMS_ITS | Encounter Summary ---
Author Organization [facility] Address [address] [place] [address] Care Team Providers Care Radio Interference Expert Name Role Phone Unavailable Primary Care Provider Unavailabl e Encounter Details Date Type Department Care Team (Late st Contact Info) Description 09/26/2019 Lab Requisition [facility] Laboratory Services [id number] [place] [address] [facility], External Provider [id number] [place] [address] Unspecified abnormal findings in urine Social History Tobacco Use Types Packs/Day Years Used Date Smoking Tobacco: Never Assessed Sex and Gender Information Value Date Recorded Sex Assigned at Not on file 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 Gender Identity Not on file Sexual [...] - 145 mmol/L 09/26/2019 8:53 PM CDT [facility] - [facility] POTASSIUM 5.1 3.4 - 5.1 mmol/L 09/26/2019 8:53 PM CDT [facility] - [facility] CHLORIDE 105 98 - 107 mmol/L 09/26/2019 8:53 PM [facility] CO2 23 22 - 29 mmol/L 09/26/2019 8:53 PM [facility] CALCIUM 8.6 8.6 - 10.4 mg/dL 09/26/2019 8:53 PM [facility] BUN 28(H) 6 - 20 mg/dL 09/26/2019 8:53 PM [facility] CREATININE 1.07 0.67 - 1.17 mg/dL 09/26/2019 8:53 PM [facility] Comment:The GFR result is no t clinically significant on patients <18 or >70 years of age. GLUCOSE 83 74 - 99 mg/dL 09/26/2019 8:53 PM [facility] TOTAL PROTEIN 6.7 6.3 - 8.7 g/dL 09/26/2019 8:53 PM [facility] ALBUMIN 4.2 3.5 - 5.2 g/dL 09/26/2019 8:53 PM [facility] BILIRUBIN TOTAL 0.3 0.2 - 1.3 mg/dL 09/26/2019 8:53 PM [facility] ALKALINE PHOSPHATASE 99 40 - 150 U/L 09/26/2019 8:53 PM [facility] AST 18 0 - 41 U/L 09/26/2019 8:53 PM [facility] ALT 18 0 - 41 U/L 09/26/2019 8:53 PM [facility] GFR >60 mL/min/1.7 3 sq meter 09/26/2019 8:53 PM [facility] Comment: eGFR has not been validated for [...] 3 sq meter 09/26/2019 8:53 PM CDT [facility] ANION GAP 14 8 - 16 mmol/L 09/26/2019 8:53 PM CDT [facility] Blood BLOOD SPECIMEN / Unknown Collection / Unknown 09/26/2019 3:44 PM CDT 09/26/2019 8:17 PM CDT us External Provider [facility] CHEMISTRY ORDERABLES Johanne l Result [facility] CLIA# [id number] [place] [address] * (ABNORMAL) CBC WITH DIFFERENTIAL (09/26/2019 3:44 PM CDT) WBC 6.6 4.5 - 10.5 K/uL 09/26/2019 8:26 PM CDT [facility] RBC 3.80(L) 4.50 - 5.40 M/uL 09/26/2019 8:26 PM CDT [facility] HEMOGLOBIN 11.5(L) 13.6 - 16.5 g/dL 09/26/2019 8:26 PM CDT [facility] HEMATOCRIT 34.3(L) 40.0 - 48.0 % 09/26/2019 8:26 PM CDT [facility] MCV 90.2 82.0 - 99.0 fL 09/26/2019 8:26 PM CDT [facility] MCH 30.2 27.8 - 34.5 pg 09/26/2019 8:26 PM CDT [facility] MCHC 33.5 32.5 - 35.5 g/dL 09/26/2019 8:26 PM CDT [facility] RDW 15.8(H) 11.5 - 14.5 % 09/26/2019 8:26 PM CDT [facility] PLATELETS 175 160 - 420 K/uL 09/26/2019 8:26 PM CDT [facility] MPV 10.2 8.7 - 12.7 fL 09/26/2019 8:26 PM CDT [facility] NEUTROPHILS 68 45 - 70 % 09/26/2019 8:26 PM CDT [facility] LYMPHOCYTES 16 16 - 45 % 09/26/2019 8:26 PM CDT [facility] MONOCYTES 10 3 - 13 % 09/26/2019 8:26 PM CDT [facility] EOSINOPHILS 5 0 - 7 % 09/26/2019 8:26 PM CDT [facility] BASOPHILS 1 0 - 2 % 09/26/2019 8:26 PM CDT [facility] NEUTROPHIL ABSOLUTE 4.50 1.90 - 7.00 K/uL 09/26/2019 8:26 PM CDT [facility] LYMPHOCYTE ABSOLUTE 1.10 0.70 - 4.50 K/uL 09/26/2019 8:26 PM CDT [facility] MONOCYTE ABSOLUTE 0.60 0.10 - 1.30 K/uL 09/26/2019 8:26 PM CDT [facility] EOSINOPHIL ABSOLUTE 0.40 0.00 - 0.70 K/uL 09/26/2019 8:26 PM CDT [facility] BASOPHILS ABSOLUTE 0.00 0.00 - 0.20 K/uL 09/26/2019 8:26 PM CDT [facility] Blood BLOOD SPECIMEN / Unknown Collection / Unknown 09/26/2019 3:44 PM CDT 09/26/2019 8:17 PM CDT us External Provider [facility] HEMATOLOGY ORDERABLES Fin al Result [facility] CLIA# [id number] [address] [place] [address] * (ABNORMAL) URINALYSIS WITH REFLEX MICROSCOPIC (09/26/2019 3:00 PM CDT) COLOR UA Yellow Pale to Dark Yellow 09/26/2019 8:52 PM CDT [facility] CLARITY UA Slightly Cloudy(A) Clear 09/26/2019 8:52 PM CDT [facility] SPECIFIC GRAVITY UA 1.019 1.003 - 1.035 09/26/2019 8:52 PM CDT [facility] PH UA 5.0 5.0 - 8.0 09/26/2019 8:52 PM CDT [facility] LEUKOCYTE ESTERASE UA Negative Negative 09/26/2019 8:52 PM CDT [facility] NITRITE UA Negative Negative 09/26/2019 8:52 PM CDT [facility] PROTEIN UA Negative Negative 09/26/2019 8:52 PM CDT [facility] GLUCOSE UA Negative Negative 09/26/2019 8:52 PM CDT [facility] KETONES UA Negative Negative 09/26/2019 8:52 PM CDT [facility] UROBILINOGEN UA Normal <2.0 mg/dL 0 8:52 PM CDT [facility] BILIRUBIN UA Negative Negative 09/26/2019 8:52 PM CDT [facility] BLOOD UA Negative Negative 09/26/2019 8:52 PM CDT [facility] Comment:Ascorbic acid may ca use false negative results for blood. A microscopic review was reflexed to rule out this interference. WBC UA 0-2 0 - 2 /hpf 09/26/2019 8:[facility] RBC UA 0-2 0 - 2 /hpf 09/26/2019 8:52 PM CDT [facility] BACTERIA UA 1+(A) Negative /hpf 09/26/2019 8:52 PM CDT [facility] EPITHELIAL CELLS, URINE 0-5 0 - 5 /hpf 09/26/2019 8:52 PM CDT [facility] HYALINE CAST 0-2 None Seen, 0-2 /lpf 09/26/2019 8:52 PM CDT [facility] Ascorbic Acid UA Positive(A) Negative 020 8:52 PM CDT [facility] Urine URINE SPECIMEN OBTAINED BY CLEAN CATCH PROCEDURE / Unknown Collection / Unknown 09/26/2019 3:00 PM CDT 09/26/2019 8:17 PM CDT us External Provider [facility] URINE ORDERABLES Final Re sult [facility] CLIA# [id number] [address] [place] [address] documented in this encounter Visit Diagnoses Diagnosis Unspecified abnormal findings in urine documented in this encounter
--- OUTSIDE RECORDS SUMMARY | 2025-04-30 15:44 | XMS_ITS | Encounter Summary ---
Author Organization [facility] Address [address] [place] [address] Care Team Providers Care Training Specialist Name Role Phone Unavailable Primary Care Provider Unavailabl e Encounter Details Date Type Department Care Team (Late st Contact Info) Description 01/12/2006 Outpatient Historical [facility] Trauma and General Surgery [address] [address] [phone] [place] [address] [place] [address] Social History Tobacco Use Types Packs/Day Years Used Date Smoking Tobacco: Never Assessed Sex and Gender Information Value Date Recorded Sex Assigned at Not on file 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
--- OUTSIDE RECORDS SUMMARY | 2025-04-30 15:44 | XMS_ITS | Encounter Summary ---
Author Organization [facility] Address [address] [place] [address] Care Team Providers Care Packing Tractor Machine Operator Name Role Phone Unavailable Primary Care Provider Unavailabl e Encounter Details Date Type Department Care Team (Late st Contact Info) Description 01/09/2006 Outpatient Historical 

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
[2025-04-30 16:44] VITALS: BP 122/67; PULSE 76; RESP 14; O2SAT 99
--- OUTSIDE RECORDS SUMMARY | 2025-04-30 17:12 | XMS_ITS | Clinical Summary ---
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 Juantia Rogers MD Martin, Nathan R., MD Chowdhury, MD Misha Aragon, Mahnaz Carrington MD Cystitis (Primary Dx); History of ESBL E. coli infection; Paraplegia; Suprapubic catheter (HCC) Discharge Disposition: Discharge to assisted facility from Last 3 Months Immunizations Immunization [...] cervical spinal cord, initial encounter ([facility]) 2005 Complicated by chronic pain with [...] often do you attend chur ch or religion services? More than 4 times per year 04/15/2023 Do you belong to any clubs o r organizations such as moravian groups, unions, fraLumidigm or athletic groups, or school groups? No [...] in a custodial (including now)? No 04/15/2023 Social Connection and Isolation Panel Answer Date Recorded In a typical week, how many times do you talk on the phone with family, friends, or neighbors? More than three times a week 02/27/2025 How often do you get togethe r with friends or relatives? More than three times a week 02/27/2025 How often do you attend chur ch or religion services? More than 4 times per year 02/27/2025 Do you belong to any clubs o r organizations such as moravian groups, unions, fraternal or athletic groups, or [...] any time in the past 12 [facility], were you homeless or living in a custodial (including now)? 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 Gender Identity Not on file Sexual [...] history exists Medical Devices Implanted Type Area Aircraft Landing Gear Inspector Device Identifier Shelf Expiration Date Model / Serial / Lot [employer] Coil Embolization Coated Detachable Helical Concerto [id number] Nylon Cc-0-67-Macon - [id number] Implanted:Qty: 1 on 04/01/2023 at [facility] [employer] 07/22/2025 NV-4-10-HEL IX / / [id number] [employer] Coil Embolization Coated Detachable Helical Concerto [id number] Nylon Qd-4-99-Macon - [id number] Implanted:Qty: 1 on 04/01/2023 at [facility] [employer] 09/23/2025 NV-5-20-HEL IX / / [id number] [employer] Coil Embolization Coated Detachable Helical Concerto [id number] Nylon Vy-1-81-Macon - [id number] Implanted:Qty: 1 on 04/01/2023 at [facility] [employer] 08/27/2025 NV-5-15-HEL IX / / [id number] [employer] Angio-Seal Vip 6fr Closere Device [id number] - [id number] Implanted:Qty: 1 on 04/01/2023 at [facility] [employer] 10/03/2023 [id number] / / [id number] Procedures Procedure Name Priority Date/Time Associated Diagnosis [...] WITHOUT DIFFERENTIAL Routine 03/01/2025 8:02 PM CDT CIVIL ENGINEERING DRAFTSPERSON EVALUATE AND TREAT FIBEROPTIC ENDOSCOPIC SWALLOW Routine [...] Lai Costa M.D. AR: SANTY Report ID: [id number] Reading Location: [id number] Narrative 03/14/2025 8:31 PM CDT EXAM DESCRIPTION: [...] Lai Costa M.D. AR: SANTY Report ID: [id number] Reading Location: [id number] Procedure Note Lai Costa MD - 03/14/2025 [...] Lai Costa M.D. AR: SANTY Report ID: [id number] Reading Location: [place] [address] Jess LAZAR [facility] – [...] BLOOD ORDERABLES Final Resu lt [facility] ([place]) 1 [facility] Department [place] [address] * (ABNORMAL) Differential, auto (03/14/2025 6:17 PM [...] BLOOD ORDERABLES Final Resu lt GIGI MAXWELL ([place]) 1 [facility] Department [place] [address] * (ABNORMAL) Urinalysis reflex to microscopic and culture Urine, indwelling catheter (03/14/2025 6:17PM CDT) Color, ur Yellow Yellow Clarity, ur Turbid(A) Clear GIGI Ceja ([place]) Specific gravity, ur 1.016 1.003 - 1.030 [facility]WELL ([place]) pH, urine 5.5 [facility] ([place]) Comment: Interpretive Data U rine pH is affected by diet, medications, systemic acid-base disturbances, and renal tubular function. pH may affect urinary stone formation. For example, urine pH below 6.0 may help reduce the tendency for calcium phosphate stones and pH greater than 6.0 may reduce the tendency for uric acid stone formation. Source: [facility] Laboratories Current Interpretive Data was last [...] us Jess LAZAR LAB MICROBIOLOGY - GENERAL ATNONIO WALKER Final Result [facility] ([place]) 1 [facility] Department [place] [address] * (ABNORMAL) CBC with auto differential (03/14/2025 [...] RDW CV 15.6(H) 11.1 - 14.9 % [facility] ([place] RDW SD 50.9(H) 35.7 - 48.1 fL GIGI COUNTS [facility]CLUDE 234 BEDS AT THE [facility] ([place]) NRBC abs 0.00 0.00 - 0.01 K/cumm [facility] ([place]) Blood 03/14/2025 6:17 PM CDT 03/14/2025 6:21 PM CDT Jess LAZAR LAB BLOOD ORDERABLES Final Resu lt Performing Organization Address City/[facility]/ZIP Co de Phone Number GIGI COUNTS INCLUDE 234 BEDS AT THE [facility] ([place]) 1 [facility] [employer] [place] [address] * (ABNORMAL) Urinalysis, microscopic only (03/14/2025 6:17 PM CDT) WBC, ur >50(A) 0 - 5 /HPF RBC, ur 6-10(A) 0 - 2 /HPF GIGI COUNTS INCLUDE 234 BEDS AT THE [facility] ([place]) Epithelial cells, squamous, ur 1-5 0 - 5 /HPF [facility] ([place]) Bacteria, ur Trace(A) [facility] ([place]) Mucous, ur Present(A) GIGI A ([place]) Culture Reflex Comment Reflex to urine culture will be performed. GIGI COUNTS INCLUDE 234 BEDS AT THE [facility] ([place]) Urine, indwelling catheter 03/14/2025 6:17 PM CDT 03/14/2025 6:21 PM CDT Jess LAZAR LAB URINE ORDERABLES Final Resu lt Performing Organization Address City/[facility]/ZIP Co de Phone Number GIGI MAXWELL ([place]) 1 [facility] [employer] [place] [address] * (ABNORMAL) Urine culture Urine, indwelling catheter (03/14/2025 6:17 PM CDT) Report Final Report: Greater than or equal to 100,000 colonies/mL of Staphylococcus aureus Methicillin resistant (MRSA) by penicillin binding protein 2a (PBP2a) testing. Plus growth of clinically insignificant bacterial sandra. (.) Comment:Testing performed by : [facility] 1 [facility], [place]., [address] Organism STAPHYLOCOCCUS AUREUS [facility] ([place]) Organism PLUS GROWTH OF CLINICALLY INSIGNIFICANT SANDRA. [facility] ([place]) Urine, indwelling catheter 03/14/2025 6:17 PM CDT 03/14/2025 9:57 PM CDT Narrative [facility] ([place]) - 03/17/2025 2:55 PM CDT Urine culture reflexed based upon urinalysis results. Testing performed by [facility] Microbiology Laboratory ([phone]) Organism Antibiotic Method Susceptibility Staphylococcus aureus Vancomycin [...] WALKER Final Result [facility] ([place]) 1 [facility] Department [place] [address] * (ABNORMAL) Comprehensive metabolic panel (03/14/2025 6:17 [...] BLOOD ORDERABLES Final Resu lt GIGI MAXWELL ([place]) 1 [facility] Department [place] [address] * Antibody identification (03/05/2025 12:31 AM CDT) Pathologist [facility] Antibody ID 1 Anti Little e Blood 03/05/2025 12:3 1 AM CDT 03/05/2025 12:32 AM CDT us Marilyn Morgan MD LAB BLOOD BANK TEST ORDERABLES F inal Result [facility] One [facility] Department [place] [address] * eGFR (03/04/2025 11:12 PM CDT) eGFR [...] CDT 03/04/2025 11:33 PM CDT Lucy Ho EARLY MORNING LAB BLOOD ORDERABLES Fin al Result [facility] One [facility] Department [place] [address] * (ABNORMAL) CBC without differential (03/04/2025 11:12 PM CDT) WBC 11.79(H) 3.80 - 9.90 K/cumm Hgb 9.1(L) 13.0 - 17.5 g/dL [facility] Hct 29.9(L) 38.9 - 50.3 % [facility] Plt 267 150 - 400 K/cumm [facility] MPV 10.2 9.1 - 12.3 fL [facility] RBC 3.30(L) 4.30 - 5.80 M/cumm [facility] MCV 90.6 81.3 - 96.4 fL [facility] MCH 27.6 27.1 - 33.3 pg [facility] MCHC 30.4(L) 32.3 - 35.7 g/dL [facility] RDW CV 15.9(H) 11.1 - 14.9 % [facility] RDW SD 51.3(H) 35.7 - 48.1 fL [facility] NRBC abs 0.00 0.00 - 0.01 K/cumm [facility] Blood 03/04/2025 11:1 2 PM CDT 03/04/2025 11:33 PM CDT Lucy Ho EARLY MORNING LAB BLOOD ORDERABLES Fin al Result Performing Organization Address [facility] Co de Phone Number [facility] Department [place] [address] * (ABNORMAL) Type and screen (03/04/2025 11:12 PM CDT) Pathologist [facility] ABO Rh O Positive Bonifacio, indirect Positive(A) [facility] Blood 03/04/2025 11:1 2 PM CDT 03/04/2025 11:23 PM CDT Narrative [facility] - 03/05/2025 12:32 AM CDT Has the patient had Daratumumab or Isatuximab in the past 6 months?->Unknown Marilyn Morgan MD LAB BLOOD BANK TEST ORDERABLES F inal Result Performing Organization Address [facility] de Phone Number [facility] Department [place] [address] * (ABNORMAL) Basic metabolic panel (03/04/2025 11:12 PM CDT) Sodium 142 135 - 145 mmol/L Potassium, pl 4.2 3.3 - 4.9 mmol/L [facility] Chloride 100 97 - 110 mmol/L [facility] CO2 35(H) 22 - 32 mmol/L [facility] Anion gap 7 2 - 15 mmol/L [facility] BUN 12 6 - 25 mg/dL [facility] Creatinine 0.81 0.80 - 1.30 mg/dL [facility] Glucose 105 70 - 199 mg/dL [facility] Comment: Interpretive Data Fasting glucose >/= [...] 2022. Calcium 8.8 8.5 - 10.3 mg/dL [facility] Blood 03/04/2025 11:1 2 PM CDT 03/04/2025 11:33 PM CDT us Lucy Ho NP LAB BLOOD ORDERABLES Fin al Result [facility] One [facility] Department [place] [address] * eGFR (03/03/2025 10:44 PM CDT) eGFR [...] CDT 03/03/2025 11:34 PM CDT Lucy Ho EARLY MORNING LAB BLOOD ORDERABLES Fin al Result Performing Organization Address [facility] Co de Phone Number [facility] Department [place] [address] * (ABNORMAL) CBC without differential (03/03/2025 10:44 PM CDT) Pathologist [facility] WBC 9.58 3.80 - 9.90 K/cumm Hgb 8.3(L) 13.0 - 17.5 g/dL [facility] Hct 26.4(L) 38.9 - 50.3 % [facility] Plt 263 150 - 400 K/cumm [facility] MPV 10.4 9.1 - 12.3 fL [facility] RBC 2.97(L) 4.30 - 5.80 M/cumm [facility] MCV 88.9 81.3 - 96.4 fL [facility] MCH 27.9 27.1 - 33.3 pg [facility] MCHC 31.4(L) 32.3 - 35.7 g/dL [facility] RDW CV 15.5(H) 11.1 - 14.9 % [facility] RDW SD 49.8(H) 35.7 - 48.1 fL [facility] NRBC abs 0.00 0.00 - 0.01 K/cumm [facility] Blood 03/03/2025 10:4 4 PM CDT 03/03/2025 11:34 PM CDT Lucy Ho NP LAB BLOOD ORDERABLES Fin al Result Performing Organization Address [facility] Co de Phone Number [facility] Department [place] [address] * Phosphorus (03/03/2025 10:44 PM CDT) Pathologist [facility] Phosphorus, pl 3.5 2.3 - 4.5 mg/dL Blood 03/03/2025 10:4 4 PM CDT 03/03/2025 11:33 PM CDT Lucy Ho EARLY MORNING LAB BLOOD ORDERABLES Fin al Result Performing Organization Address City/[facility]/ZIP Co de Phone Number [facility] Department [place] [address] * Magnesium (03/03/2025 10:44 PM CDT) [facility] Magnesium 2.3 1.4 - 2.5 mg/dL Blood 03/03/2025 10:4 4 PM CDT 03/03/2025 11:33 PM CDT Lucy Ho EARLY MORNING LAB BLOOD ORDERABLES Fin al Result Performing Organization Address [facility] de Phone Number [facility] Department [place] [address] * (ABNORMAL) Basic metabolic panel (03/03/2025 10:44 PM CDT) [facility] Sodium 142 135 - 145 mmol/L Potassium, pl 4.3 3.3 - 4.9 mmol/L [facility] Chloride 101 97 - 110 mmol/L [facility] CO2 35(H) 22 - 32 mmol/L [facility] Anion gap 6 2 - 15 mmol/L [facility] BUN 10 6 - 25 mg/dL [facility] Creatinine 0.77(L) 0.80 - 1.30 mg/dL [facility] Glucose 99 70 - 199 mg/dL [facility] Comment: Interpretive Data Fasting glucose >/= [...] 2022. Calcium 8.6 8.5 - 10.3 mg/dL [facility] Blood 03/03/2025 10:4 4 PM CDT 03/03/2025 11:34 PM CDT Lucy Ho NP LAB BLOOD ORDERABLES Fin al Result Performing Organization Address [facility] Co de Phone Number [facility] Department [place] [address] * eGFR (03/02/2025 11:52 PM CDT) eGFR [...] ORDERABLES Fin al Result Performing Organization Address [facility] Co de Phone Number [facility] Department [place] [address] * (ABNORMAL) CBC without differential (03/02/2025 11:52 PM CDT) Pathologist [facility] WBC 11.35(H) 3.80 - 9.90 K/cumm Hgb 8.1(L) 13.0 - 17.5 g/dL [facility] Hct 26.9(L) 38.9 - 50.3 % [facility] Plt 230 150 - 400 K/cumm [facility] MPV 10.4 9.1 - 12.3 fL [facility] RBC 2.90(L) 4.30 - 5.80 M/cumm [facility] MCV 92.8 81.3 - 96.4 fL [facility] MCH 27.9 27.1 - 33.3 pg [facility] MCHC 30.1(L) 32.3 - 35.7 g/dL [facility] RDW CV 15.5(H) 11.1 - 14.9 % [facility] RDW SD 52.4(H) 35.7 - 48.1 fL [facility] NRBC abs 0.00 0.00 - 0.01 K/cumm [facility] Blood 03/02/2025 11:5 2 PM CDT 03/03/2025 12:07 AM CDT Lucy Ho EARLY MORNING LAB BLOOD ORDERABLES Fin al Result [facility] One [facility] Department [place] [address] * (ABNORMAL) CBC without differential (03/02/2025 11:52 PM CDT) Pathologist [facility] WBC 11.11(H) 3.80 - 9.90 K/cumm Hgb 8.0(L) 13.0 - 17.5 g/dL [facility] Hct 26.9(L) 38.9 - 50.3 % [facility] Plt 233 150 - 400 K/cumm [facility] MPV 10.4 9.1 - 12.3 fL [facility] RBC 2.91(L) 4.30 - 5.80 M/cumm [facility] MCV 92.4 81.3 - 96.4 fL [facility] MCH 27.5 27.1 - 33.3 pg [facility] MCHC 29.7(L) 32.3 - 35.7 g/dL [facility] RDW CV 15.5(H) 11.1 - 14.9 % [facility] RDW SD 51.9(H) 35.7 - 48.1 fL [facility] NRBC abs 0.00 0.00 - 0.01 K/cumm [facility] Blood 03/02/2025 11:5 2 PM CDT 03/03/2025 12:08 AM CDT Lucy Ho EARLY MORNING LAB BLOOD ORDERABLES Fin al Result Performing Organization Address [facility] de Phone Number [facility] Department [place] [address] * Phosphorus (03/02/2025 11:52 PM CDT) Phosphorus, pl 3.3 2.3 - 4.5 mg/dL Blood 03/02/2025 11:5 2 PM CDT 03/03/2025 12:08 AM CDT Lucy Ho EARLY MORNING LAB BLOOD ORDERABLES Fin al Result Performing Organization Address [facility] de Phone Number [facility] Department [place] [address] * Magnesium (03/02/2025 11:52 PM CDT) Magnesium 2.2 1.4 - 2.5 mg/dL Blood 03/02/2025 11:5 2 PM CDT 03/03/2025 12:08 AM CDT Lucy Ho NP LAB BLOOD ORDERABLES Fin al Result Performing Organization Address [facility] de Phone Number [facility] Department [place] [address] * (ABNORMAL) Basic metabolic panel (03/02/2025 11:52 PM CDT) Sodium 142 135 - 145 mmol/L Potassium, pl 4.2 3.3 - 4.9 mmol/L [facility] Chloride 101 97 - 110 mmol/L [facility] CO2 36(H) 22 - 32 mmol/L [facility] Anion gap 5 2 - 15 mmol/L [facility] BUN 11 6 - 25 mg/dL [facility] Creatinine 0.71(L) 0.80 - 1.30 mg/dL [facility] Glucose 101 70 - 199 mg/dL [facility] Comment: Interpretive Data Fasting glucose >/= [...] 2022. Calcium 8.5 8.5 - 10.3 mg/dL [facility] Blood 03/02/2025 11:5 2 PM CDT 03/03/2025 12:08 AM CDT us Lucy Ho NP LAB BLOOD ORDERABLES Fin al Result [facility] Department [place] [address] * US Vein Duplex Lower Extremity Bilateral Complete (03/02/2025 4:55 PM CDT) Anatomical Region Laterality Modality Vascular Bilateral Ultrasound 03/02/2025 4:23 PM CDT Narrative 03/02/2025 6:14 PM CDT [facility] - Department of Vascular Surgery, Vascular Laboratory [address] [place] [address] Lower Extremity Venous Ultrasound Report Patient Name: JEROME ASKEW : 1950 (74y 11m) Study Date: 03/02/2025 4:23:44 PM Gender: M Tech: Location: [id number] Ref Provider: LIZA TRAYLOR Quality: Adequate Order [...] INDICATIONS: Swelling lower extremity, bilateral. FINDINGS: Performing Manager Demand: Mariaelena Gill RVT. Bilateral: Venous Doppler signals [...] above. Electronically Signed By: Pritesh Contreras MD [facility] [phone] 03/02/2025 5:36:36 PM CDT Procedure Note Pritesh Contreras MD - 03/02/2025 [facility] - Department of Vascular Surgery,Vascular Laboratory [address] [place] [address] Lower Extremity Venous Ultrasound Report Patient Name: JEROME ASKEW : 1950 (74y 11m) Study Date: 03/02/2025 4:23:44 PM Gender: M Tech: Location: [id number] Ref Provider: LIZA TRAYLOR Quality: Adequate Order Provider: LIZA TRAYLOR PROCEDURES: Vascular Report: Venous Duplex imaging was performed bilaterally in the lower extremities.The common femoral, femoral, popliteal, posterior tibial, peroneal veins wereevaluated for patency, spontaneity and phasicity with Doppler, compression and augmentationmaneuvers. Great saphenous vein proximal at the junction was evaluated with compressionmaneuvers. INDICATIONS: Swelling lower extremity, bilateral. FINDINGS: Performing Manager Demand: Mariaelena Gill RVT. Bilateral: Venous Doppler signals [...] above. Electronically Signed By: Pritesh Contreras MD [facility] [phone] 03/02/2025 5:36:36 PM CDT Lzia Traylor MD [facility] PROCEDURES Final Result * (ABNORMAL) POC Blood Gas and Chemistries, Venous - (03/02/2025 1:56 PM CDT) pH, Cas POC 7.40 7.32 - 7.43 pCO2, cas POC 61(H) 40 - 50 mmHg [facility] pO2, cas POC 42 mmHg [facility] Na, POC 142 135 - 145 mmol/L [facility] K POC 4.2 3.3 - 4.9 mmol/L [facility] Comment: Interpretive Data Not all point of care methods assess for hemolysis. Confirm with instrument and retest K+ if not consistent with clinical signs and symptoms. Current Interpretive Data was last revised on 2023. Cl, POC 108 97 - 110 mmol/L [facility] Ionized Ca, POC 4.59 4.50 - 5.10 mg/dL [facility] Glucose, POC 100 70 - 199 mg/dL [facility] Lactate POC 1.0 0.7 - 2.0 mmol/L [facility] O2 Sat, Cas POC ([place]) 71 % [facility] Base excess, POC 11.5 mmol/L [facility] HCO3, Cas POC 38(H) 20 - 30 mmol/L [facility] Hct, POC 24.0(L) 41.4 - 51.6 % [facility] Total Hb, POC 8.0(L) 13.8 - 17.2 g/dL [facility] Blood 03/02/2025 1:56 PM CDT 03/02/2025 1:56 PM CDT us Liza Traylor MD LAB POCT ORDERABLES - DE VICE Final Result [facility] Department [place] [address] * (ABNORMAL) Tissue aerobic and anaerobic culture and gram stain Tissue Buttocks (03/02/2025 11:43 AMCDT) Direct Specimen Exam Stain: No polymorphonuclear leukocytes seen. Abundant Gram Variable Bacilli Abundant Gram Positive Cocci Report Final Report: Few Mixed aerobic and anaerobic microorganisms Includes the following: Few Bacteroides fragilis (.) [facility] Organism MIXED AEROBIC AND ANAEROBIC MICROORGANISMS [facility] Organism BACTEROIDES FRAGILIS [facility] Tissue (Buttocks) 03/02/2025 11:43 AM CDT 03/02/2025 2:05 PM CDT Narrative [facility] - 03/05/2025 1:23 PM CDT Deep tissue left buttocks wound Testing performed by [facility] Microbiology Laboratory ([phone]) Specimens submitted from normally sterile body sites [...] G ENERAL ORDERABLES Final Result [facility] Bravo [facility] Department [place] [address] * Continuous Video EEG (03/02/2025 9:46 AM CDT) Anatomical Region Laterality Modality EEG Narrative 03/02/2025 10:16 AM CDT Video-EEG Report Patient Name: Jerome Askew [facility] Medical Record Number (MRN): [id number] [employer] Record: [id number] Date of (): 1950 Ordering Provider: Colin [...] digital EEG were recorded continuously with a Loaded Pocket EEG acquisition system. This was a 32 [...] AM CDT Narrative 03/02/2025 9:18 AM CDT [facility] [place] [address] Transthoracic Echocardiographic Report Patient Name: JEROME ASKEW R : 1950 (74y 11m) Sex: M Study Date: 03/02/2025 07:44:43 AM Ht(Inch): 75 Wt(Lb): 179.01 BSA: 2.07 Manager Demand: Ale Alexander Location: [id number] Order Provider: MARILYN MORGAN Heart Rate: 73 [...] Procedure Note Cristóbal May MD - 03/02/2025 [facility] [place] [address] Transthoracic Echocardiographic Report Patient Name: JEROME ASKEW R : 1950 (74y 11m) Sex: M Study Date: 03/02/2025 07:44:43 AM Ht(Inch): 75 Wt(Lb): 179.01 BSA: 2.07 Manager Demand: Ale Alexander Location: [id number] Order Provider:MARILYN MORGAN Heart Rate: 73 BMI: [...] LA Length 4C 6.49 cm MV Decel Jrir241.48 msec [ 104.00 - 258.00 ] LA [...] cm [ 1.71 - 5.00 ] RA Vitzfh47.63 ml RA Volume Index16.71 ml/m2 IVC Diam2.11 [...] Units (03/02/2025 8:19 AM CDT) Product code [id number] [facility] Unit Number [id number] 8-U [facility] Product Blood Type OPOS [facility] Dispense Status RETURNED [facility] Product code [id number] Unit Number [id number] 3-F [facility] Product Blood Type OPOS [facility] Dispense Status RETURNED [facility] Blood 03/02/2025 8:19 AM CDT 03/02/2025 8:19 AM CDT Narrative [facility] - 03/05/2025 12:08 AM CDT Are special requirements needed? (All products are leukoreduced and CMV- safe)- >No Date required:-[id number] LRRBC # of [id number] Reasons:-Intra-op transfusion} us Aman Fowler MD BLOOD BANK PRODUCT ORD ERABLES Final Result [facility] [place] [address] * CT Head WO Contrast (03/02/2025 4:11 [...] history of spinal cord injury and left [place] now status post code stroke with TNK [...] history of spinal cord injury and left [place] now status post code stroke with TNK [...] BLOOD BANK TEST ORDERABLES F inal Result [facility] Department [place] [address] * eGFR (03/01/2025 8:02 PM CDT) eGFR [...] ORDERABLES Fin al Result Performing Organization Address [facility] de Phone Number [facility] [place] [address] * aPTT (03/01/2025 8:02 PM CDT) aPTT [...] ORDERABLES Final Resul t Performing Organization Address [facility] de Phone Number [facility] [place] [address] * Protime-INR (03/01/2025 8:02 PM CDT) PT 13.4 10.2 - 13.5 sec INR 1.19 0.90 - 1.20 [facility] Comment: Interpretive data Oral anticoagulant therapeutic [...] ORDERABLES Final Resul t Performing Organization Address [facility] Co de Phone Number [facility] Department [place] [address] * (ABNORMAL) CBC without differential (03/01/2025 8:02 PM CDT) Pathologist [facility] WBC 8.66 3.80 - 9.90 K/cumm Hgb 7.8(L) 13.0 - 17.5 g/dL [facility] Hct 25.9(L) 38.9 - 50.3 % [facility] Plt 200 150 - 400 K/cumm [facility] MPV 10.6 9.1 - 12.3 fL [facility] RBC 2.82(L) 4.30 - 5.80 M/cumm [facility] MCV 91.8 81.3 - 96.4 fL [facility] MCH 27.7 27.1 - 33.3 pg [facility] MCHC 30.1(L) 32.3 - 35.7 g/dL [facility] RDW CV 15.5(H) 11.1 - 14.9 % [facility] RDW SD 52.6(H) 35.7 - 48.1 fL [facility] NRBC abs 0.00 0.00 - 0.01 K/cumm [facility] Blood 03/01/2025 8:02 PM CDT 03/01/2025 8:27 PM CDT us Lucy Ho NP LAB BLOOD ORDERABLES Fin al Result Performing Organization Address [facility]/ZIP Co de Phone Number [facility] Department [place] [address] * (ABNORMAL) Type and screen (03/01/2025 8:02 PM CDT) Bonifacio, indirect Positive(A) ABO Rh O Positive [facility] Blood 03/01/2025 8:02 PM CDT 03/01/2025 8:26 PM CDT Narrative [facility] - 03/01/2025 9:23 PM CDT Has the patient had Daratumumab or Isatuximab in the past 6 months?->Unknown Marilyn Morgan MD LAB BLOOD BANK TEST ORDERABLES F inal Result Performing Organization Address [facility] Co de Phone Number [facility] Department [place] [address] * (ABNORMAL) Basic metabolic panel (03/01/2025 8:02 PM CDT) Sodium 146(H) 135 - 145 mmol/L Potassium, pl 4.4 3.3 - 4.9 mmol/L [facility] Chloride 106 97 - 110 mmol/L [facility] CO2 34(H) 22 - 32 mmol/L [facility] Anion gap 6 2 - 15 mmol/L [facility] BUN 13 6 - 25 mg/dL [facility] Creatinine 0.72(L) 0.80 - 1.30 mg/dL [facility] Glucose 134 70 - 199 mg/dL [facility] Comment: Interpretive Data Fasting glucose >/= [...] 2022. Calcium 7.9(L) 8.5 - 10.3 mg/dL [facility] Blood 03/01/2025 8:02 PM CDT 03/01/2025 8:27 PM CDT Lucy Ho NP LAB BLOOD ORDERABLES Fin al Result Performing Organization Address [facility]/ZIP Co de Phone Number [facility] Department [place] [address] * [employer]IVIL ENGINEERING DRAFTSPERSON Evaluate and Treat (FEES) (03/01/2025 11:34 AM [...] diet/thin liquids General Information Jerome Askew 03/01/25 CIVIL ENGINEERING DRAFTSPERSON Received On: 03/01/25 General Observations: Pt seen sitting upright in bed, alert, cooperative, able to follow simple commands. Pain Score: 0 If pain >4, was RN notified? N/A Patient Stated Goal/Comments: Pt did not state any ST related goals/comments. Clinical Impression & Professional Recommendations Diet Solids Recommendation: Dysphagia diet-Soft (tender/chopped meat) Diet Liquids Recommendations: [place] thick (No ice in drinks, no ice [...] deficits Secretions: Minimal Consistencies Administered: Thin liquids, [place] thick liquids, Purees, Solids Thin Liquids: Laryngeal Penetration: Present Aspiration Present: Yes Timing: Before Amount: Moderate Response to aspiration: None Cough: Non-productive Unsuccessful Modifications: Chin tuck, Repeat swallow, Cough Penetration Aspiration Scale-Thin: 8-Material enters the airway, passes below the vocal folds and no effort is made to eject Bynum Scale-Vallecular Residue-Thin Liquids: Mild Bynum Scale-Pyriform Sinus Residue-Thin Liquids: Mild [place] Thickened Liquids: Laryngeal Penetration: None Aspiration Present: No Penetration Aspiration Scale-[place]: 1-Material does not enter airway Noemí Scale-Vallecular Residue-[place] Thickened Liquids: Mild Bynum Scale-Pyriform Sinus Residue-[place] Thickened Liquids: Mild Purees: Laryngeal Penetration: None Aspiration Present: No Successful Modifications: Alternated liquids and solids Penetration Aspiration Scale-Puree: 1-Material does not enter airway Bynum Scale-Vallecular Residue-Puree: Moderate Noemí Scale-Pyriform Sinus Residue-Puree: Mild Solids: Laryngeal Penetration: None Aspiration Present: No Successful Modifications: Alternated liquids and solids Penetration Aspiration Scale-Solids: 1-Material does not enter airway Bynum Scale-Vallecular Residue-Solids: Moderate Bynum Scale-Pyriform Sinus Residue-Solids: Mild Dysphagia Outcome and Severity Scale: Dysphagia Outcomes and Severity Scale: 3 Moderate dysphagia Levels 1 & 2 on the PATRICK indicate need for nonoral nutrition. Treatment Treatment was not provided this date. Please reference care plan for treatment goals and details, if indicated. 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 us Marilyn Morgan MD CIVIL ENGINEERING DRAFTSPERSON ORDERABLES Final Result [facility] * (ABNORMAL) CBC without differential (03/01/2025 5:45 AM CDT) WBC 10.25(H) 3.80 - 9.90 K/cumm Hgb 8.7(L) 13.0 - 17.5 g/dL [facility] Hct 28.1(L) 38.9 - 50.3 % [facility] Plt 226 150 - 400 K/cumm [facility] MPV 10.6 9.1 - 12.3 fL [facility] RBC 3.12(L) 4.30 - 5.80 M/cumm [facility] MCV 90.1 81.3 - 96.4 fL [facility] MCH 27.9 27.1 - 33.3 pg [facility] MCHC 31.0(L) 32.3 - 35.7 g/dL [facility] RDW CV 15.4(H) 11.1 - 14.9 % [facility] RDW SD 50.7(H) 35.7 - 48.1 fL [facility] NRBC abs 0.00 0.00 - 0.01 K/cumm [facility] Blood 03/01/2025 5:45 AM CDT 03/01/2025 6:01 AM CDT us Lucy Ho NP LAB BLOOD ORDERABLES Fin al Result [facility] Department [place] [address] * CT Head WO Contrast (03/01/2025 5:22 [...] Straw Yellow Clarity, ur Clear Clear [facility] Specific gravity, ur >1.042(H) 1.003 - 1.030 [facility] pH, urine 6.0 [facility] Comment: Interpretive Data U rine pH is affected by diet, medications, systemic acid-base disturbances, and renal tubular function. pH may affect urinary stone formation. For example, urine pH below 6.0 may help reduce the tendency for calcium phosphate stones and pH greater than 6.0 may reduce the tendency for uric acid stone formation. Source: [facility] Current Interpretive Data was last revised on 2017 Protein, ur ql Trace Negative [facility] Glucose, ur ql Negative Negative [facility] Ketones, ur Negative Negative [facility] Bilirubin, ur Negative Negative [facility] Blood, ur Negative Negative [facility] Urobilinogen, ur <2.0 <2.0 mg/dL [facility] Nitrite, ur Negative Negative [facility] Leukocyte esterase, ur Negative Negative [facility] UA reflex comment Reflex conditions for microscopic UA and culture not met. [facility] Urine, indwelling catheter 03/01/2025 3:09 AM CDT 03/01/2025 3:35 AM CDT Lucy Ho NP LAB MICROBIOLOGY - GENER AL ORDERABLES Final Result [facility] Department [place] [address] * Respiratory pathogen panel Nasopharyngeal (03/01/2025 3:09 AM CDT) Pathologist [facility] Influenza A RNA Not Detected Not Detected Influenza B RNA Not Detected Not Detected [facility] RSV RNA Not Detected Not Detected [facility] COVID-19 RNA Not Detected Not Detected [facility] Coronavirus 229E RNA Not Detected Not Detected [facility] Coronavirus HKU1 RNA Not Detected Not Detected [facility] Coronavirus NL63 RNA Not Detected Not Detected [facility] Coronavirus OC43 RNA Not Detected Not Detected [facility] Adenovirus DNA Not Detected Not Detected [facility] Metapneumovirus RNA Not Detected Not Detected [facility] Rhinovirus/Enterov irus RNA Not Detected Not Detected [facility] Parainfluenza 1 RNA Not Detected Not Detected [facility] Parainfluenza 2 RNA Not Detected Not Detected [facility] Parainfluenza 3 RNA Not Detected Not Detected [facility] Parainfluenza 4 RNA Not Detected Not Detected [facility] B. pertussis DNA Not Detected Not Detected [facility] B. parapertussis DNA Not Detected Not Detected [facility] C. pneumoniae DNA Not Detected Not Detected [facility] M. pneumoniae DNA Not Detected Not Detected [facility] Nasopharyngeal 03/01/2025 3: 09 AM CDT 03/01/2025 3:44 AM CDT Narrative [facility] - 03/01/2025 4:42 AM CDT Is the Patient experiencing symptoms consistent with COVID?->No Surveillance testing for transplant patient?->No Interpretive Data The Naubo FilmArray Respiratory Panel (RP2.1) assay is a [...] assay has FDA clearance for testing of EARLY MORNING swabs. The performance of additional specimen types has been assessed by the performing laboratory. The performance characteristics of this assay have been determined by [facility] Molecular Infectious Disease Laboratory. Current interpretive data was last revised on 22. Lucy Ho NP LAB MICROBIOLOGY - GENER AL ORDERABLES Final Result [facility] Department [place] [address] * Blood culture Blood (03/01/2025 3:09 AM CDT) Report Final Report: No growth Blood 03/01/2025 3:09 AM CDT 03/01/2025 3:37 AM CDT Narrative [facility] - 03/05/2025 7:00 AM CDT Collection->Peripheral 1. [...] performance characteristics have been verified by the [facility] Microbiology Laboratory. For questions about this culture, contact the Microbiology Laboratory at [phone]. Interpretive data was last revised on 24. Lucy Ho NP LAB MICROBIOLOGY - GENER AL ORDERABLES Final Result [facility] Department [place] [address] * Blood culture Blood (03/01/2025 3:09 AM [...] performance characteristics have been verified by the [facility] Microbiology Laboratory. For questions about this culture, contact the Microbiology Laboratory at [phone]. Interpretive data was last revised on 24. Lucy Ho NP LAB MICROBIOLOGY - GENER AL ORDERABLES Final Result Performing Organization Address [facility]/ZIP Co de Phone Number [facility] Department [place] [address] * Antibody identification (02/28/2025 8:47 PM CDT) Antibody ID 1 Anti Little e Blood 02/28/2025 8:47 PM CDT 02/28/2025 8:47 PM CDT Lucy Ho NP LAB BLOOD BANK TEST ORDE AARON Final Result Performing Organization Address [facility] Co de Phone Number [facility] Department [place] [address] * ECG 12 lead (02/28/2025 8:02 PM CDT) Pathologist [facility] Ventricular Rate EKG/Min 63 BPM [facility] Atrial Rate 63 BPM [facility] IN-Interval (MSEC) 218 ms [facility] QRS-Interval (MSEC) 92 ms [facility] QT-Interval (MSEC) 398 ms [facility] QTc 407 ms [facility] P [place] 49 degrees [facility] R [place] -25 degrees [facility] T [place] 10 degrees [facility] Diagnosis Sinus rhythm with 1st degree A-V block Minimal voltage criteria for LVH, may be normal variant Borderline ECG When compared with ECG of 08-APR-2023 12:02, Previous ECG has undetermined rhythm, needs review QRS duration has increased ST no longer depressed in Inferior leads T wave inversion no longer evident in Inferior leads Confirmed by MIRA SAENZ M.D ([id number]) on 03/01/2025 5:26:48 PM [facility] 02/28/2025 8:02 PM CDT 03/01/2025 5:26 PM CDT Lucy Ho NP ECG ORDERABLES Final Re sult Performing Organization Address [facility] Co de Phone Number [facility] * XR chest 1 view (Portable) (02/28/2025 [...] 02/28/2025 7:57 PM CDT Lucy Liza Ho EARLY MORNING LAB BLOOD ORDERABLES Fin al Result Performing Organization Address [facility] de Phone Number [facility] Department [place] [address] * eGFR (02/28/2025 7:42 PM CDT) eGFR [...] ORDERABLES Fin al Result Performing Organization Address [facility] Co de Phone [facility] [place] [address] * aPTT (02/28/2025 7:42 PM CDT) aPTT 32 26 - 38 sec Comment: Interpretive Data Heparin therapeutic range: 66.0 - 100.0 seconds. Range based on correlation with therapeutic heparin activity range of 0.3 - 0.7 Units/mL. Current interpretive data was last revised on 2023. Blood 02/28/2025 7:42 PM CDT 02/28/2025 7:57 PM CDT Lucy Ho EARLY MORNING LAB BLOOD ORDERABLES Fin al Result Performing Organization Address [facility] de Phone Number [facility] [place] [address] * Protime-INR (02/28/2025 7:42 PM CDT) [facility] PT 13.3 10.2 - 13.5 sec INR 1.18 0.90 - 1.20 [facility] Comment: Interpretive data Oral anticoagulant therapeutic ranges: Venous thromboembolism prophylaxis or treatment: 2.0-3.0 CARDIOLOGY Standard range: 2.0-3.0 High-intensity range: 2.5-3.5 Refer to indication-specific guidelines for appropriate target ranges for prosthetic heart valve replacement. Current interpretive data was last revised on 2019. Blood 02/28/2025 7:42 PM CDT 02/28/2025 7:57 PM CDT Lucy Ho NP LAB BLOOD ORDERABLES Fin al Result Performing Organization Address [facility] de Phone Number [facility] Department [place] [address] * (ABNORMAL) CBC without differential (02/28/2025 7:42 PM CDT) [facility] WBC 8.91 3.80 - 9.90 K/cumm Hgb 9.2(L) 13.0 - 17.5 g/dL [facility] Hct 29.5(L) 38.9 - 50.3 % [facility] Plt 223 150 - 400 K/cumm [facility] MPV 10.5 9.1 - 12.3 fL [facility] RBC 3.26(L) 4.30 - 5.80 M/cumm [facility] MCV 90.5 81.3 - 96.4 fL [facility] MCH 28.2 27.1 - 33.3 pg [facility] MCHC 31.2(L) 32.3 - 35.7 g/dL [facility] RDW CV 15.5(H) 11.1 - 14.9 % [facility] RDW SD 51.8(H) 35.7 - 48.1 fL [facility] NRBC abs 0.00 0.00 - 0.01 K/cumm [facility] Blood 02/28/2025 7:42 PM CDT 02/28/2025 7:57 PM CDT Lucy Ho NP LAB BLOOD ORDERABLES Fin al Result Performing Organization Address [facility] Co de Phone Number [facility] [place] [address] * (ABNORMAL) Type and screen (02/28/2025 7:42 PM CDT) ABO Rh O Positive Bonifacio, indirect Positive(A) [facility] Blood 02/28/2025 7:42 PM CDT 02/28/2025 7:54 PM CDT Narrative [facility] - 02/28/2025 8:47 PM CDT Has the patient had Daratumumab or Isatuximab in the past 6 months?->Unknown Lucy Ho NP LAB BLOOD BANK TEST ORDE RABLES Final Result Performing Organization Address [facility] Co de Phone Number [facility] Department [place] [address] * Phosphorus (02/28/2025 7:42 PM CDT) Phosphorus, pl 3.9 2.3 - 4.5 mg/dL Blood 02/28/2025 7:42 PM CDT 02/28/2025 7:56 PM CDT Lucy Ho NP LAB BLOOD ORDERABLES Fin al Result Performing Organization Address [facility] Co de Phone Number [facility] Department [place] [address] * Magnesium (02/28/2025 7:42 PM CDT) [facility] Magnesium 2.3 1.4 - 2.5 mg/dL Blood 02/28/2025 7:42 PM CDT 02/28/2025 7:56 PM CDT Lucy Ho NP LAB BLOOD ORDERABLES Fin al Result Performing Organization Address [facility] [place] [address] * Hemoglobin A1c (02/28/2025 7:42 PM CDT) [facility] Hgb A1C 5.4 4.0 - 5.6 % Estimated Average Glucose 108 mg/dL [facility] Comment: The ADA recommends reporting an estimated Average Glucose (eAG) with all Hemoglobin A1c results using the equation derived from a study of 507 normal and diabetic adults. Minority populations were underrepresented and children were not included. (Diabetes Care 2020; 43(S1): S66-S76). The eAG is not equivalent to a fasting glucose. Blood 02/28/2025 7:42 PM CDT 02/28/2025 8:02 PM CDT Result [facility] Liza Traylor MD LAB BLOOD ORDERABLES Fin al Result Performing Organization Address [facility] Co de Phone Number [facility] [place] [address] * (ABNORMAL) Blood gas, arterial (02/28/2025 7:42 PM CDT) [facility] pH, Art 7.38 7.35 - 7.45 PCO2, Arterial 53(H) 35 - 45 mmHg [facility] PO2, Arterial 78(L) 83 - 108 mmHg [facility] HCO3 Art (Calculated) 31(H) 20 - 30 mmol/L [facility] BE, art 5 mmol/L [facility] Comment: Interpretive Data No Reference Range Established Current Interpretive Data was last revised on 2017 O2 Sat Art (Measured) 96(H) 90 - 95 % [facility] Blood 02/28/2025 7:42 PM CDT 02/28/2025 7:49 PM CDT us Lucy Ho NP LAB BLOOD ORDERABLES Fin al Result [facility] Department [place] [address] * (ABNORMAL) Lipid panel (02/28/2025 7:42 PM [...] revised on 2018. Triglycerides 45 <=149 mg/dL [facility] Comment: Interpretive Data Ages < or [...] revised on 2018. HDL 27(L) >=40 mg/dL [facility] Comment: Interpretive Data Ages < or [...] on 2018. LDL, calculated 28 <=129 mg/dL [facility] Comment: Interpretive Data Ages < or [...] NCEP Expert Panel. Circulation 2004;110:227 3. Luis Segla et al. JO Cardiol. 2019November 02;5(5):540-548. doi: 10.1001/jamacardio.2020.0013 Current Interpretive Data was last revised on 2024. Non-HDL Cholesterol 41 mg/dL [facility] Comment: Interpretive Data Ages < or [...] last revised on 2018. Chol/HDL ratio 3 [facility] Blood 02/28/2025 7:42 PM CDT 02/28/2025 7:56 PM CDT us Jaquelin Monroy MD LAB BLOOD ORDERABLES Fin al Result [facility] [place] [address] * (ABNORMAL) Comprehensive metabolic panel (02/28/2025 7:42 PM CDT) Sodium 144 135 - 145 mmol/L Potassium, pl 3.9 3.3 - 4.9 mmol/L [facility] Chloride 106 97 - 110 mmol/L [facility] CO2 33(H) 22 - 32 mmol/L [facility] Anion gap 5 2 - 15 mmol/L [facility] BUN 18 6 - 25 mg/dL [facility] Creatinine 0.88 0.80 - 1.30 mg/dL [facility] Glucose 117 70 - 199 mg/dL [facility] Comment: Interpretive Data Fasting glucose >/= [...] Calcium 8.3(L) 8.5 - 10.3 mg/dL [facility] Bilirubin, total 0.3 0.1 - 1.2 mg/dL [facility] Protein, pl 5.9(L) 6.5 - 8.5 g/dL [facility] Albumin 2.8(L) 3.5 - 5.0 g/dL [facility] Alk phos 89 40 - 130 Units/L [facility] ALT 18 7 - 55 Units/L [facility] AST 28 10 - 50 Units/L [facility] Blood 02/28/2025 7:42 PM CDT 02/28/2025 7:56 PM CDT us Lucy Ho NP LAB BLOOD ORDERABLES Fin al Result [facility] [place] [address] * POCT glucose (02/28/2025 7:27 PM CDT) [facility] Signature Glucose, POC 126 70 - 199 mg/dL Blood 02/28/2025 7:27 PM CDT 02/28/2025 7:27 PM CDT Liza Traylor MD LAB POCT ORDERABLES - DE VICE Final Result Performing Organization Address [facility] Co de Phone Number [facility] [place] [address] * CTA/CTP Rapid Stroke (C) (02/28/2025 7:13 [...] the CTA were generated on a dedicated workstation/room service server. [employer] software ([employer]) was used for automated analyses of the CTA. CT perfusion of the brain was performed with intravenous contrast using a separate data acquisition. These data were transmitted to a separate workstation/room service server for processing by [employer] software ([employer]) to produce automated calculations of the estimated [...] Artery: no occlusion or significant stenosis L [place]: no occlusion or significant stenosis R [place]: Mild to moderate narrowing. No occlusion. There [...] the CTA were generated on a dedicated workstation/room service server. [employer] software ([employer]) was used for automated analyses of the CTA. CT perfusion of the brain was performed with intravenous contrast using a separate data acquisition. These data were transmitted to a separate workstation/room service server for processing by [employer] software ([employer]) to produce automated calculations of the estimated [...] Artery: no occlusion or significant stenosis L [place]: no occlusion or significant stenosis R [place]: Mild to moderate narrowing. No occlusion. There [...] LAB BLOOD ORDERABLES Fin al Result [facility] Department [place] [address] * (ABNORMAL) Differential, auto (02/28/2025 6:50 PM CDT) Pathologist [facility] Neutrophil abs 7.36(H) 1.50 - 6.50 K/cumm Imm gran abs 0.03 0.00 - 0.10 K/cumm [facility] Lymphocyte abs 0.76(L) 0.80 - 3.30 K/cumm [facility] Monocyte abs 0.87(H) 0.20 - 0.80 K/cumm [facility] Eosinophil abs 0.20 0.00 - 0.50 K/cumm [facility] Basophil abs 0.02 0.00 - 0.10 K/cumm [facility] Neutrophil pct 79.7 % [facility] Comment: Interpretive Data Percent cell count reference ranges are not reported, since discordance with absolute values may lead to misinterpretation of CBC data. Current Interpretive Data was last revised on 2017. Imm gran pct 0.3 % [facility] Comment: Interpretive Data Percent cell count reference ranges are not reported, since discordance with absolute values may lead to misinterpretation of CBC data. Current Interpretive Data was last revised on 2017. Lymphocyte pct 8.2 % [facility] Comment: Interpretive Data Percent cell count reference ranges are not reported, since discordance with absolute values may lead to misinterpretation of CBC data. Current Interpretive Data was last revised on 2017. Monocyte pct 9.4 % [facility] Comment: Interpretive Data Percent cell count reference ranges are not reported, since discordance with absolute values may lead to misinterpretation of CBC data. Current Interpretive Data was last revised on 2017. Eosinophil pct 2.2 % [facility] Comment: Interpretive Data Percent cell count reference ranges are not reported, since discordance with absolute values may lead to misinterpretation of CBC data. Current Interpretive Data was last revised on 2017. Basophil pct 0.2 % [facility] Comment: Interpretive Data Percent cell count reference ranges are not reported, since discordance with absolute values may lead to misinterpretation of CBC data. Current Interpretive Data was last revised on 2017. Blood 02/28/2025 6:5 0 PM CDT 02/28/2025 7:03 PM CDT Jaquelin Monroy MD LAB BLOOD ORDERABLES Fin al Result Performing Organization Address City/[facility]/ZIP Co de Phone Number [facility] Department [place] [address] * (ABNORMAL) CBC with auto differential (02/28/2025 6:50 PM CDT) Pathologist [facility] WBC 9.24 3.80 - 9.90 K/cumm Hgb 8.9(L) 13.0 - 17.5 g/dL [facility] Hct 28.9(L) 38.9 - 50.3 % [facility] Plt 221 150 - 400 K/cumm [facility] MPV 10.6 9.1 - 12.3 fL [facility] RBC 3.20(L) 4.30 - 5.80 M/cumm [facility] MCV 90.3 81.3 - 96.4 fL [facility] MCH 27.8 27.1 - 33.3 pg [facility] MCHC 30.8(L) 32.3 - 35.7 g/dL [facility] RDW CV 15.4(H) 11.1 - 14.9 % [facility] RDW SD 50.8(H) 35.7 - 48.1 fL [facility] NRBC abs 0.00 0.00 - 0.01 K/cumm [facility] Blood 02/28/2025 6:50 PM CDT 02/28/2025 7:03 PM CDT Jaquelin Monroy MD LAB BLOOD ORDERABLES Fin al Result [facility] [place] [address] * Lactate, whole blood (02/28/2025 6:50 PM CDT) Lactate, bld 0.9 0.7 - 2.0 mmol/L Blood 02/28/2025 6:50 PM CDT 02/28/2025 6:57 PM CDT Jaquelin Monroy MD LAB BLOOD ORDERABLES Fin al Result Performing Organization Address City/[facility] Co de Phone Number [facility] Department [place] [address] * Magnesium (02/28/2025 6:50 PM CDT) Pathologist [facility] Magnesium 2.0 1.4 - 2.5 mg/dL Blood 02/28/2025 6:50 PM CDT 02/28/2025 7:03 PM CDT Jaquelin Monroy MD LAB BLOOD ORDERABLES Fin al Result Performing Organization Address [facility] de Phone Number [facility] [place] [address] * (ABNORMAL) Blood gas, venous (02/28/2025 6:50 PM CDT) pH, Venous 7.34 7.32 - 7.43 PCO2, Venous 59(H) 40 - 50 mmHg [facility] PO2, Venous 58 mmHg [facility] Comment: Interpretive Data No Reference Range Established Current Interpretive Data was last revised on 2017. HCO3 Venous, Calculated 31(H) 20 - 30 mmol/L [facility] BE, venous 4 mmol/L [facility] Comment: Interpretive Data No Reference Range Established Current Interpretive Data was last revised on 2017. Blood 02/28/2025 6:50 PM CDT 02/28/2025 6:57 PM CDT Jaquelin Monroy MD LAB BLOOD ORDERABLES Fin al Result Performing Organization Address [facility] de Phone Number [facility] [place] [address] * (ABNORMAL) Hepatic function panel (02/28/2025 6:50 PM CDT) Pathologist [facility] Bilirubin, total 0.3 0.1 - 1.2 mg/dL Bilirubin, direct <0.2 0.1 - 0.3 mg/dL [facility] Protein, pl 5.9(L) 6.5 - 8.5 g/dL [facility] Albumin 3.0(L) 3.5 - 5.0 g/dL [facility] Alk phos 91 40 - 130 Units/L [facility] ALT 23 7 - 55 Units/L [facility] AST 27 10 - 50 Units/L [facility] Blood 02/28/2025 6:50 PM CDT 02/28/2025 7:03 PM CDT us Jaquelin Monroy MD LAB BLOOD ORDERABLES Fin al Result [facility] Department [place] [address] * (ABNORMAL) Basic metabolic panel (02/28/2025 6:50 PM CDT) Pathologist [facility] Sodium 148(H) 135 - 145 mmol/L Potassium, pl 4.5 3.3 - 4.9 mmol/L [facility] Chloride 108 97 - 110 mmol/L [facility] CO2 33(H) 22 - 32 mmol/L [facility] Anion gap 7 2 - 15 mmol/L [facility] BUN 17 6 - 25 mg/dL [facility] Creatinine 0.85 0.80 - 1.30 mg/dL [facility] Glucose 136 70 - 199 mg/dL [facility] Comment: Interpretive Data Fasting glucose >/= [...] 2022. Calcium 7.6(L) 8.5 - 10.3 mg/dL [facility] Blood 02/28/2025 6:50 PM CDT 02/28/2025 7:03 PM CDT Jaquelin Monroy MD LAB BLOOD ORDERABLES Fin al Result Performing Organization Address City/[facility]/ZIP Co de Phone Number [facility] [place] [address] * (ABNORMAL) Arterial Blood gas w/Lactate POCT (02/28/2025 6:49 PM CDT) Lactate POC i-STAT 0.5(L) 0.7 - 2.0 mmol/L pH POC 7.34(L) 7.35 - 7.[address] [facility] [facility] [address] pCO2, Art POC 60(H) 35 - 45 mmHg [facility] PO2 POC 51(L) 80 - [address] [facility] [facility] CO2, total POC 35(H) 20 - 30 mmol/L [facility] HCO3, POC 33(H) 21 - 30 mmol/L [facility] BE POC 7(H) -2 - 3 mmol/L [facility] O2 sat POC 82(L) 95 - 98 % [facility] Blood 02/28/2025 6:49 PM CDT 02/28/2025 6:49 PM CDT Jaquelin oMnroy MD LAB BLOOD ORDERABLES Fin al Result [facility] Department [place] [address] * POCT glucose (02/28/2025 6:30 PM CDT) Glucose, POC 140 70 - 199 mg/dL Blood 02/28/2025 6:30 PM CDT 02/28/2025 6:30 PM CDT us Jaquelin Monroy MD LAB POCT ORDERABLES - DE VICE Final Result [facility] Department [place] [address] * XR Sacrum Coccyx 2 or More [...] MD LAB BLOOD ORDERABLES Final R esult [facility] Department [place] [address] * (ABNORMAL) Differential, auto (02/27/2025 10:55 PM CDT) Neutrophil abs 7.32(H) 1.50 - 6.50 K/cumm Imm gran abs 0.05 0.00 - 0.10 K/cumm [facility] Lymphocyte abs 0.88 0.80 - 3.30 K/cumm [facility] Monocyte abs 0.93(H) 0.20 - 0.80 K/cumm [facility] Eosinophil abs 0.21 0.00 - 0.50 K/cumm [facility] Basophil abs 0.03 0.00 - 0.10 K/cumm [facility] Neutrophil pct 77.8 % [facility] Comment: Interpretive Data Percent cell count reference ranges are not reported, since discordance with absolute values may lead to misinterpretation of CBC data. Current Interpretive Data was last revised on 2017. Imm gran pct 0.5 % [facility] Comment: Interpretive Data Percent cell count reference ranges are not reported, since discordance with absolute values may lead to misinterpretation of CBC data. Current Interpretive Data was last revised on 2017. Lymphocyte pct 9.3 % [facility] Comment: Interpretive Data Percent cell count reference ranges are not reported, since discordance with absolute values may lead to misinterpretation of CBC data. Current Interpretive Data was last revised on 2017. Monocyte pct 9.9 % [facility] Comment: Interpretive Data Percent cell count reference ranges are not reported, since discordance with absolute values may lead to misinterpretation of CBC data. Current Interpretive Data was last revised on 2017. Eosinophil pct 2.2 % [facility] Comment: Interpretive Data Percent cell count reference ranges are not reported, since discordance with absolute values may lead to misinterpretation of CBC data. Current Interpretive Data was last revised on 2017. Basophil pct 0.3 % [facility] Comment: Interpretive Data Percent cell count reference ranges are not reported, since discordance with absolute values may lead to misinterpretation of CBC data. Current Interpretive Data was last revised on 2017. Blood 02/27/2025 10:5 5 PM CDT 02/28/2025 12:37 AM CDT us Shayne Hussein MD LAB BLOOD ORDERABLES Final R esult [facility] Department [place] [address] * (ABNORMAL) CBC with auto differential (02/27/2025 10:55 PM CDT) WBC 9.42 3.80 - 9.90 K/cumm Hgb 8.9(L) 13.0 - 17.5 g/dL [facility] Hct 28.3(L) 38.9 - 50.3 % [facility] Plt 224 150 - 400 K/cumm [facility] MPV 10.6 9.1 - 12.3 fL [facility] RBC 3.15(L) 4.30 - 5.80 M/cumm [facility] MCV 89.8 81.3 - 96.4 fL [facility] MCH 28.3 27.1 - 33.3 pg [facility] MCHC 31.4(L) 32.3 - 35.7 g/dL [facility] RDW CV 15.5(H) 11.1 - 14.9 % [facility] RDW SD 50.9(H) 35.7 - 48.1 fL [facility] NRBC abs 0.00 0.00 - 0.01 K/cumm [facility] Blood 02/27/2025 10:5 5 PM CDT 02/28/2025 12:37 AM CDT us Shayne Hussein MD LAB BLOOD ORDERABLES Final R esult [facility] Department [place] [address] * (ABNORMAL) Basic metabolic panel (02/27/2025 10:55 PM CDT) Pathologist [facility] Sodium 141 135 - 145 mmol/L Potassium, pl 3.6 3.3 - 4.9 mmol/L [facility] Chloride 105 97 - 110 mmol/L [facility] CO2 30 22 - 32 mmol/L [facility] Anion gap 6 2 - 15 mmol/L [facility] BUN 18 6 - 25 mg/dL [facility] Creatinine 0.90 0.80 - 1.30 mg/dL [facility] Glucose 105 70 - 199 mg/dL [facility] Comment: Interpretive Data Fasting glucose >/= [...] 2022. Calcium 7.8(L) 8.5 - 10.3 mg/dL [facility] Blood 02/27/2025 10:5 5 PM CDT 02/28/2025 12:32 AM CDT us Shayne Hussein MD LAB BLOOD ORDERABLES Final R esult Performing Organization Address City/[facility]/ZIP Co de Phone Number [facility] [place] [address] * POCT glucose (02/27/2025 11:31 AM CDT) Glucose, POC 138 70 - 199 mg/dL Blood 02/27/2025 11:3 1 AM CDT 02/27/2025 11:31 AM CDT us Jaquelin Monroy MD LAB POCT ORDERABLES - DE VICE Final Result Performing Organization Address City/[facility]/ZIP Co de Phone Number [facility] [place] [address] * eGFR (02/26/2025 11:33 PM CDT) [facility] eGFR >90 >=60 mL/min/1. 73 m2 [...] MD LAB BLOOD ORDERABLES [facility] [place] [address] * (ABNORMAL) Differential, auto (02/26/2025 11:33 PM [...] ORDERABLES Final R esult Performing Organization Address [facility] Co de Phone Number [facility] Department [place] [address] * (ABNORMAL) CBC with auto differential (02/26/2025 11:33 PM CDT) Pathologist [facility] WBC 7.69 3.80 - 9.90 K/cumm Hgb 8.9(L) 13.0 - 17.5 g/dL [facility] Hct 28.8(L) 38.9 - 50.3 % [facility] Plt 174 150 - 400 K/cumm [facility] MPV 10.7 9.1 - 12.3 fL [facility] RBC 3.16(L) 4.30 - 5.80 M/cumm [facility] MCV 91.1 81.3 - 96.4 fL [facility] MCH 28.2 27.1 - 33.3 pg [facility] MCHC 30.9(L) 32.3 - 35.7 g/dL [facility] RDW CV 15.2(H) 11.1 - 14.9 % [facility] RDW SD 51.2(H) 35.7 - 48.1 fL [facility] NRBC abs 0.00 0.00 - 0.01 K/cumm [facility] Blood 02/26/2025 11:3 3 PM CDT 02/27/2025 12:06 AM CDT us Shayne Hussein MD LAB BLOOD ORDERABLES Final R esult Performing Organization Address City/[facility]/ZIP Co de Phone Number [facility] Department [place] [address] * (ABNORMAL) Basic metabolic panel (02/26/2025 11:33 PM CDT) Pathologist [facility] Sodium 142 135 - 145 mmol/L Potassium, pl 3.8 3.3 - 4.9 mmol/L [facility] Chloride 106 97 - 110 mmol/L [facility] CO2 31 22 - 32 mmol/L [facility] Anion gap 5 2 - 15 mmol/L [facility] BUN 17 6 - 25 mg/dL [facility] Creatinine 0.85 0.80 - 1.30 mg/dL [facility] Glucose 111 70 - 199 mg/dL [facility] Comment: Interpretive Data Fasting glucose >/= [...] 2022. Calcium 8.0(L) 8.5 - 10.3 mg/dL [facility] Blood 02/26/2025 11:3 3 PM CDT 02/27/2025 12:05 AM CDT us Shayne Hussein MD LAB BLOOD ORDERABLES Final R esult Performing Organization Address City/[facility]/ZIP Co de Phone Number [facility] Department [place] [address] * Potassium, urine, random (02/26/2025 4:41 PM CDT) Potassium conc, ur 19.1 mmol/L Comment: Interpretive Data No reference range established. Current interpretive data was last revised 2018. Urine 02/26/2025 4:41 PM CDT 02/26/2025 4:57 PM CDT us Ros Olivares NP LAB URINE ORDERABLES Final Result [facility] [place] [address] * Creatinine, urine, random (02/26/2025 4:41 PM CDT) Creatinine Ur 136.2 mg/dL Comment: Interpretive Data No reference range established. Current interpretive data was last revised 2018. Urine 02/26/2025 4:41 PM CDT 02/26/2025 4:57 PM CDT Ros Olivares NP LAB URINE ORDERABLES Final Result Performing Organization Address [facility] Co de Phone Number [facility] [place] [address] * Chloride, urine, random (02/26/2025 4:41 PM CDT) Pathologist [facility] Chloride, ur 91 mmol/L Comment: Interpretive Data No reference range established. Current interpretive data was last revised 2018. Urine 02/26/2025 4:41 PM CDT 02/26/2025 4:57 PM CDT Ros Olivares NP LAB URINE ORDERABLES Final Result Performing Organization Address City/[facility] Co de Phone Number [facility] [place] [address] * eGFR (02/26/2025 6:13 AM CDT) eGFR [...] Olivares NP LAB BLOOD ORDERABLES Final Result [facility] Department [place] [address] * (ABNORMAL) Differential, auto (02/26/2025 6:13 AM CDT) Neutrophil abs 5.34 1.50 - 6.50 K/cumm Imm gran abs 0.03 0.00 - 0.10 K/cumm [facility] Lymphocyte abs 0.63(L) 0.80 - 3.30 K/cumm [facility] Monocyte abs 0.93(H) 0.20 - 0.80 K/cumm [facility] Eosinophil abs 0.19 0.00 - 0.50 K/cumm [facility] Basophil abs 0.01 0.00 - 0.10 K/cumm [facility] Neutrophil pct 75.0 % [facility] Comment: Interpretive Data Percent cell count reference ranges are not reported, since discordance with absolute values may lead to misinterpretation of CBC data. Current Interpretive Data was last revised on 2017. Imm gran pct 0.4 % [facility] Comment: Interpretive Data Percent cell count reference ranges are not reported, since discordance with absolute values may lead to misinterpretation of CBC data. Current Interpretive Data was last revised on 2017. Lymphocyte pct 8.8 % [facility] Comment: Interpretive Data Percent cell count reference ranges are not reported, since discordance with absolute values may lead to misinterpretation of CBC data. Current Interpretive Data was last revised on 2017. Monocyte pct 13.0 % [facility] Comment: Interpretive Data Percent cell count reference ranges are not reported, since discordance with absolute values may lead to misinterpretation of CBC data. Current Interpretive Data was last revised on 2017. Eosinophil pct 2.7 % [facility] Comment: Interpretive Data Percent cell count reference ranges are not reported, since discordance with absolute values may lead to misinterpretation of CBC data. Current Interpretive Data was last revised on 2017. Basophil pct 0.1 % [facility] Comment: Interpretive Data Percent cell count reference ranges are not reported, since discordance with absolute values may lead to misinterpretation of CBC data. Current Interpretive Data was last revised on 2017. Blood 02/26/2025 6:13 AM CDT 02/26/2025 6:26 AM CDT us Shayne Hussein MD LAB BLOOD ORDERABLES Final R esult [facility] Department [place] [address] * (ABNORMAL) CBC with auto differential (02/26/2025 6:13 AM CDT) WBC 7.13 3.80 - 9.90 K/cumm Hgb 8.4(L) 13.0 - 17.5 g/dL [facility] Hct 26.6(L) 38.9 - 50.3 % [facility] Plt 182 150 - 400 K/cumm [facility] MPV 10.4 9.1 - 12.3 fL [facility] RBC 2.99(L) 4.30 - 5.80 M/cumm [facility] MCV 89.0 81.3 - 96.4 fL [facility] MCH 28.1 27.1 - 33.3 pg [facility] MCHC 31.6(L) 32.3 - 35.7 g/dL [facility] RDW CV 15.5(H) 11.1 - 14.9 % [facility] RDW SD 50.5(H) 35.7 - 48.1 fL [facility] NRBC abs 0.00 0.00 - 0.01 K/cumm [facility] Blood 02/26/2025 6:13 AM CDT 02/26/2025 6:26 AM CDT Shayne Hussein MD LAB BLOOD ORDERABLES Final R esult Performing Organization Address City/[facility] Co de Phone Number [facility] Department [place] [address] * Magnesium (02/26/2025 6:13 AM CDT) [facility] Magnesium 2.2 1.4 - 2.5 mg/dL Blood 02/26/2025 6:13 AM CDT 02/26/2025 6:26 AM CDT Shayne Hussein MD LAB BLOOD ORDERABLES Final R esult Performing Organization Address City/[facility] de Phone Number [facility] Department [place] [address] * (ABNORMAL) Basic metabolic panel (02/26/2025 6:13 AM CDT) [facility] Sodium 143 135 - 145 mmol/L Potassium, pl 3.3 3.3 - 4.9 mmol/L [facility] Chloride 104 97 - 110 mmol/L [facility] CO2 28 22 - 32 mmol/L [facility] Anion gap 11 2 - 15 mmol/L [facility] BUN 15 6 - 25 mg/dL [facility] Creatinine 0.83 0.80 - 1.30 mg/dL [facility] Glucose 102 70 - 199 mg/dL [facility] Comment: Interpretive Data Fasting glucose >/= [...] BLOOD ORDERABLES Final Result Performing Organization Address City/[facility]/ZIP Co de Phone Number [facility] Department [place] [address] * eGFR (02/25/2025 10:30 PM CDT) eGFR [...] MD LAB BLOOD ORDERABLES Final R esult [facility] [place] [address] * Magnesium (02/25/2025 10:30 PM CDT) [facility] Magnesium 2.1 1.4 - 2.5 mg/dL Blood 02/25/2025 10:3 0 PM CDT 02/25/2025 10:39 PM CDT us Shayne Hussein MD LAB BLOOD ORDERABLES Final R esult [facility] [place] [address] * (ABNORMAL) Basic metabolic panel (02/25/2025 10:30 PM CDT) [facility] Sodium 139 135 - 145 mmol/L Potassium, pl 3.7 3.3 - 4.9 mmol/L [facility] Chloride 101 97 - 110 mmol/L [facility] CO2 31 22 - 32 mmol/L [facility] Anion gap 7 2 - 15 mmol/L [facility] BUN 16 6 - 25 mg/dL [facility] Creatinine 0.78(L) 0.80 - 1.30 mg/dL [facility] Glucose 110 70 - 199 mg/dL [facility] Comment: Interpretive Data Fasting glucose >/= [...] 2022. Calcium 8.3(L) 8.5 - 10.3 mg/dL [facility] Blood 02/25/2025 10:3 0 PM CDT 02/25/2025 10:39 PM CDT Result [facility] Shayne Hussein MD LAB BLOOD ORDERABLES Final R esult Performing Organization Address [facility] Co de Phone Number [facility] Department [place] [address] * (ABNORMAL) Potassium, whole blood (02/25/2025 2:44 PM CDT) Potassium, bld 3.2(L) 3.3 - 4.9 mmol/L Comment:Verified Blood 02/25/2025 2:44 PM CDT 02/25/2025 2:52 PM CDT Result [facility] Savannah Valenzuela MD PhD LAB BLOOD ORDERABLES Final Resu lt Performing Organization Address [facility] de Phone Number [facility] [place] [address] * (ABNORMAL) Troponin I high-sensitivity 4-hour (02/25/2025 2:14 PM CDT) Trop I hs 55(H) <=35 ng/L Comment: Interpretive Data For further hscTnI resources including the diagnostic algorithm and an aid in interpretation, copy and paste this link: [email or web address].[email or web address]/[email or web address] Current Interpretive Data last revised 2020. Trop I hs delta -13 ng/L [facility] Trop I hs interp Equivocal [facility] Blood 02/25/2025 2:14 PM CDT 02/25/2025 3:45 PM CDT Result [facility] Savannah Valenzuela MD PhD LAB BLOOD ORDERABLES Final Resu lt Performing Organization Address [facility] Co de Phone Number [facility] [place] [address] * Bladder Catheterization (02/25/2025 12:13 PM CDT) [...] Rapid HIV, POC Negative Negative Lot Number [id number] QC Control Line Acceptable Blood 02/25/2025 11:2 0 AM CDT Ezekiel Roberts MD POINT OF CARE TEST ORDERABLES Fi nal Result * (ABNORMAL) Urinalysis reflex to microscopic and culture Urine, suprapubic catheter (02/25/2025 11:19 AM CDT) Pathologist [facility] Color, ur Straw Yellow Clarity, ur Clear Clear [facility] Specific gravity, ur 1.016 1.003 - 1.030 [facility] pH, urine 6.0 [facility] Comment: Interpretive Data U rine pH is affected by diet, medications, systemic acid-base disturbances, and renal tubular function. pH may affect urinary stone formation. For example, urine pH below 6.0 may help reduce the tendency for calcium phosphate stones and pH greater than 6.0 may reduce the tendency for uric acid stone formation. Source: [email or web address] Current Interpretive Data was last revised on 2017 Protein, ur ql 1+(A) Negative [facility] Glucose, ur ql Negative Negative [facility] Ketones, ur 2+(A) Negative [facility] Bilirubin, ur Negative Negative [facility] Blood, ur Trace(A) Negative [facility] Urobilinogen, ur <2.0 <2.0 mg/dL [facility] Nitrite, ur Negative Negative [facility] Leukocyte esterase, ur Negative Negative [facility] UA reflex comment Reflex to microscopic UA will be performed. [facility] Urine, suprapubic catheter 02/25/2025 11:19 AM CDT 02/25/2025 11:39 AM CDT us Savannah Valenzuela MD PhD LAB MICROBIOLOGY - [facility] Final Result Performing Organization Address [facility] Co de Phone Number [facility] [place] [address] * (ABNORMAL) Urinalysis, microscopic only (02/25/2025 11:19 AM CDT) WBC, ur 11-20(A) 0 - 5 /HPF RBC, ur 3-5(A) 0 - 2 /HPF [facility] Epithelial cells, squamous, ur 1-5 0 - 5 /HPF [facility] Mucous, ur Present(A) [facility] Culture Reflex Comment Reflex to urine culture will be performed. [facility] Urine, suprapubic catheter 02/25/2025 11:19 AM CDT 02/25/2025 11:39 AM CDT us Savannah Valenzuela MD PhD LAB URINE ORDERABLES Final Resu lt Performing Organization Address [facility] de Phone Number [facility] Department [place] [address] * Urine culture Urine, suprapubic catheter (02/25/2025 11:19 AM CDT) Report Final Report: Less than 100,000 colonies/mL (clinically insignificant growth based on current clinical standards) Organism (CLINICALLY INSIGNIFICANT GROWTH [facility] Urine, suprapubic catheter 02/25/2025 11:19 AM CDT 02/25/2025 3:07 PM CDT Narrative [facility] - 02/26/2025 6:15 PM CDT Urine culture reflexed based upon urinalysis results. Testing performed by [facility] ([phone]) Savannah Valenzuela MD PhD LAB MICROBIOLOGY - [facility] Final Result Performing Organization Address [facility] Co de Phone Number [facility] Department [place] [address] * (ABNORMAL) Troponin I high-sensitivity series (baseline, [...] ORDERABLES Final Resu lt Performing Organization Address [facility] Co de Phone Number [facility] Department [place] [address] * Sepsis Lactate w/ Reflex (02/25/2025 10:01 AM CDT) Pathologist [facility] Sepsis Lactate 0.8 0.7 - 2.0 mmol/L Blood 02/25/2025 10:0 1 AM CDT 02/25/2025 10:25 AM CDT Savannah Valenzuela MD PhD LAB BLOOD ORDERABLES Final Resu lt Performing Organization Address [facility] Co de Phone Number [facility] [place] [address] * eGFR (02/25/2025 10:01 AM CDT) eGFR [...] PhD LAB BLOOD ORDERABLES Final Resu lt [facility] Department [place] [address] * (ABNORMAL) Differential, auto (02/25/2025 10:01 AM CDT) [facility] Neutrophil abs 9.62(H) 1.50 - 6.50 K/cumm Imm gran abs 0.07 0.00 - 0.10 K/cumm [facility] Lymphocyte abs 0.47(L) 0.80 - 3.30 K/cumm [facility] Monocyte abs 1.19(H) 0.20 - 0.80 K/cumm [facility] Eosinophil abs 0.02 0.00 - 0.50 K/cumm [facility] Basophil abs 0.02 0.00 - 0.10 K/cumm [facility] Neutrophil pct 84.5 % [facility] Comment: Interpretive Data Percent cell count reference ranges are not reported, since discordance with absolute values may lead to misinterpretation of CBC data. Current Interpretive Data was last revised on 2017. Imm gran pct 0.6 % [facility] Comment: Interpretive Data Percent cell count reference ranges are not reported, since discordance with absolute values may lead to misinterpretation of CBC data. Current Interpretive Data was last revised on 2017. Lymphocyte pct 4.1 % [facility] Comment: Interpretive Data Percent cell count reference ranges are not reported, since discordance with absolute values may lead to misinterpretation of CBC data. Current Interpretive Data was last revised on 2017. Monocyte pct 10.4 % [facility] Comment: Interpretive Data Percent cell count reference ranges are not reported, since discordance with absolute values may lead to misinterpretation of CBC data. Current Interpretive Data was last revised on 2017. Eosinophil pct 0.2 % [facility] Comment: Interpretive Data Percent cell count reference ranges are not reported, since discordance with absolute values may lead to misinterpretation of CBC data. Current Interpretive Data was last revised on 2017. Basophil pct 0.2 % [facility] Comment: Interpretive Data Percent cell count reference ranges are not reported, since discordance with absolute values may lead to misinterpretation of CBC data. Current Interpretive Data was last revised on 2017. Blood 02/25/2025 10:0 1 AM CDT 02/25/2025 10:49 AM CDT Savannah Valenzuela MD PhD LAB BLOOD ORDERABLES Final Resu lt [facility] Department [place] [address] * (ABNORMAL) CBC with auto differential (02/25/2025 10:01 AM CDT) WBC 11.39(H) 3.80 - 9.90 K/cumm Hgb 9.2(L) 13.0 - 17.5 g/dL [facility] Hct 28.9(L) 38.9 - 50.3 % [facility] Plt 180 150 - 400 K/cumm [facility] MPV 10.3 9.1 - 12.3 fL [facility] RBC 3.29(L) 4.30 - 5.80 M/cumm [facility] MCV 87.8 81.3 - 96.4 fL [facility] MCH 28.0 27.1 - 33.3 pg [facility] MCHC 31.8(L) 32.3 - 35.7 g/dL [facility] RDW CV 15.1(H) 11.1 - 14.9 % [facility] RDW SD 48.9(H) 35.7 - 48.1 fL [facility] NRBC abs 0.00 0.00 - 0.01 K/cumm [facility] Blood 02/25/2025 10:0 1 AM CDT 02/25/2025 10:49 AM CDT Savannah Valenzuela MD PhD LAB BLOOD ORDERABLES Final Resu lt [facility] Department [place] [address] * Blood culture Blood Peripheral (02/25/2025 10:01 AM CDT) Report Final Report: No growth Blood (Peripheral) 02/25/2025 10:01 AM CDT 02/25/2025 10:26 AM CDT Narrative [facility] - 03/01/2025 12:01 PM CDT From [...] performance characteristics have been verified by the [facility]. For questions about this culture, contact the Microbiology Laboratory at [phone]. Interpretive data was last revised on 24. Savannah Valenzuela MD PhD LAB MICROBIOLOGY - GENERAL [facility] Final Result [facility] Department [place] [address] * Blood culture Blood Peripheral (02/25/2025 10:01 AM CDT) Report Final Report: No growth Blood (Peripheral) 02/25/2025 10:01 AM CDT 02/25/2025 10:26 AM CDT Narrative [facility] - 03/01/2025 12:01 PM CDT Draw Blood [...] performance characteristics have been verified by the [facility]. For questions about this culture, contact the Microbiology Laboratory at [phone]. Interpretive data was last revised on 24. Savannah Valenzuela MD PhD LAB MICROBIOLOGY - GENERAL [facility] Final Result Performing Organization Address [facility] Co de Phone Number [facility] Department [place] [address] * Phosphorus (02/25/2025 10:01 AM CDT) Pathologist [facility] Phosphorus, pl 2.3 2.3 - 4.5 mg/dL Blood 02/25/2025 10:0 1 AM CDT 02/25/2025 10:23 AM CDT Ezekiel Roberts MD LAB BLOOD ORDERABLES Final Resul t Performing Organization Address [facility] de Phone Number [facility] Department [place] [address] * Magnesium (02/25/2025 10:01 AM CDT) [facility] Magnesium 2.0 1.4 - 2.5 mg/dL Blood 02/25/2025 10:0 1 AM CDT 02/25/2025 10:23 AM CDT Ezekiel Roberts MD LAB BLOOD ORDERABLES Final Resul t Performing Organization Address [facility] de Phone Number [facility] [place] [address] * (ABNORMAL) Comprehensive metabolic panel (02/25/2025 10:01 AM CDT) [facility] Sodium 143 135 - 145 mmol/L Potassium, pl 2.7(L) 3.3 - 4.9 mmol/L [facility] Chloride 100 97 - 110 mmol/L [facility] CO2 32 22 - 32 mmol/L [facility] Anion gap 11 2 - 15 mmol/L [facility] BUN 19 6 - 25 mg/dL [facility] Creatinine 0.87 0.80 - 1.30 mg/dL [facility] Glucose 114 70 - 199 mg/dL [facility] Comment: Interpretive Data Fasting glucose >/= [...] 2022. Calcium 8.3(L) 8.5 - 10.3 mg/dL [facility] Bilirubin, total 0.7 0.1 - 1.2 mg/dL [facility] Protein, pl 5.9(L) 6.5 - 8.5 g/dL [facility] Albumin 3.0(L) 3.5 - 5.0 g/dL [facility] Alk phos 77 40 - 130 Units/L [facility] ALT 18 7 - 55 Units/L [facility] AST 24 10 - 50 Units/L [facility] Blood 02/25/2025 10:0 1 AM CDT 02/25/2025 10:23 AM CDT Savannah Valenzuela MD PhD LAB BLOOD ORDERABLES Final Resu lt [facility] Department [place] [address] * ECG 12-LEAD (02/25/2025 9:57 AM CDT) Narrative [facility] - 02/25/2025 9:57 AM CDT Ezekiel [...] Valenzuela MD PhD ECG ORDERABLES Final Result [facility] * XR Chest 1 Vw Portable [...] Meadows MD LAB BLOOD ORDERABLES Final Result [facility] Department [place] [address] * (ABNORMAL) CBC without differential (02/18/2025 6:56 PM CDT) WBC 14.61(H) 3.80 - 9.90 K/cumm Hgb 9.5(L) 13.0 - 17.5 g/dL [facility] Hct 30.1(L) 38.9 - 50.3 % [facility] Plt 207 150 - 400 K/cumm [facility] MPV 11.0 9.1 - 12.3 fL [facility] RBC 3.38(L) 4.30 - 5.80 M/cumm [facility] MCV 89.1 81.3 - 96.4 fL [facility] MCH 28.1 27.1 - 33.3 pg [facility] MCHC 31.6(L) 32.3 - 35.7 g/dL [facility] RDW CV 14.6 11.1 - 14.9 % [facility] RDW SD 46.8 35.7 - 48.1 fL [facility] NRBC abs 0.00 0.00 - 0.01 K/cumm [facility] Blood 02/18/2025 6:56 PM CDT 02/18/2025 7:28 PM CDT Alena Meadows MD LAB BLOOD ORDERABLES Final Result Performing Organization Address [facility]/ZIP Co de Phone Number [facility] [place] [address] * Magnesium (02/18/2025 6:56 PM CDT) [facility] Magnesium 2.0 1.4 - 2.5 mg/dL Blood 02/18/2025 6:56 PM CDT 02/18/2025 7:27 PM CDT Alena Meadows MD LAB BLOOD ORDERABLES Final Result [facility] [address] * (ABNORMAL) Comprehensive metabolic panel (02/18/2025 6:56 PM CDT) Pathologist [facility] Sodium 138 135 - 145 mmol/L Potassium, pl 3.5 3.3 - 4.9 mmol/L [facility] Chloride 100 97 - 110 mmol/L [facility] CO2 30 22 - 32 mmol/L [facility] Anion gap 8 2 - 15 mmol/L [facility] BUN 22 6 - 25 mg/dL [facility] Creatinine 0.94 0.80 - 1.30 mg/dL [facility] Glucose 131 70 - 199 mg/dL [facility] Comment: Interpretive Data Fasting glucose >/= [...] 2022. Calcium 8.2(L) 8.5 - 10.3 mg/dL [facility] Bilirubin, total 0.4 0.1 - 1.2 mg/dL [facility] Protein, pl 5.9(L) 6.5 - 8.5 g/dL [facility] Albumin 2.9(L) 3.5 - 5.0 g/dL [facility] Alk phos 93 40 - 130 Units/L [facility] ALT 16 7 - 55 Units/L [facility] AST 17 10 - 50 Units/L [facility] Blood 02/18/2025 6:56 PM CDT 02/18/2025 7:27 PM CDT us Alena Meadows MD LAB BLOOD ORDERABLES Final Result [facility] Department [place] [address] * Sepsis Lactate w/ Reflex (02/17/2025 4:32 PM CDT) Sepsis Lactate 0.9 0.7 - 2.0 mmol/L Blood 02/17/2025 4:32 PM CDT 02/17/2025 4:42 PM CDT Juanita Rogers MD LAB BLOOD ORDERABLES Final Result Performing Organization Address [facility] Co de Phone [facility] [place] [address] * eGFR (02/17/2025 4:32 PM CDT) Pathologist [facility] eGFR 74 >=60 mL/min/1. 73 m2 Comment: [...] BLOOD ORDERABLES Final Result Performing Organization Address [facility]/ZIP Co de Phone Number [facility] Department [place] [address] * (ABNORMAL) Differential, auto (02/17/2025 4:32 PM CDT) Pathologist [facility] Neutrophil abs 12.39(H) 1.50 - 6.50 K/cumm Imm gran abs 0.08 0.00 - 0.10 K/cumm [facility] Lymphocyte abs 0.59(L) 0.80 - 3.30 K/cumm [facility] Monocyte abs 1.38(H) 0.20 - 0.80 K/cumm [facility] Eosinophil abs 0.06 0.00 - 0.50 K/cumm [facility] Basophil abs 0.02 0.00 - 0.10 K/cumm [facility] Neutrophil pct 85.3 % [facility] Comment: Interpretive Data Percent cell count reference ranges are not reported, since discordance with absolute values may lead to misinterpretation of CBC data. Current Interpretive Data was last revised on 2017. Imm gran pct 0.6 % [facility] Comment: Interpretive Data Percent cell count reference ranges are not reported, since discordance with absolute values may lead to misinterpretation of CBC data. Current Interpretive Data was last revised on 2017. Lymphocyte pct 4.1 % [facility] Comment: Interpretive Data Percent cell count reference ranges are not reported, since discordance with absolute values may lead to misinterpretation of CBC data. Current Interpretive Data was last revised on 2017. Monocyte pct 9.5 % [facility] Comment: Interpretive Data Percent cell count reference ranges are not reported, since discordance with absolute values may lead to misinterpretation of CBC data. Current Interpretive Data was last revised on 2017. Eosinophil pct 0.4 % [facility] Comment: Interpretive Data Percent cell count reference ranges are not reported, since discordance with absolute values may lead to misinterpretation of CBC data. Current Interpretive Data was last revised on 2017. Basophil pct 0.1 % [facility] Comment: Interpretive Data Percent cell count reference ranges are not reported, since discordance with absolute values may lead to misinterpretation of CBC data. Current Interpretive Data was last revised on 2017. Blood 02/17/2025 4:32 PM CDT 02/17/2025 4:44 PM CDT us Juanita Rogers MD LAB BLOOD ORDERABLES Final Result [facility] Department [place] [address] * (ABNORMAL) CBC with auto differential (02/17/2025 4:32 PM CDT) WBC 14.66(H) 3.80 - 9.90 K/cumm Hgb 9.8(L) 13.0 - 17.5 g/dL [facility] Hct 30.9(L) 38.9 - 50.3 % [facility] Plt 177 150 - 400 K/cumm [facility] MPV 11.0 9.1 - 12.3 fL [facility] RBC 3.44(L) 4.30 - 5.80 M/cumm [facility] MCV 89.8 81.3 - 96.4 fL [facility] MCH 28.5 27.1 - 33.3 pg [facility] MCHC 31.7(L) 32.3 - 35.7 g/dL [facility] RDW CV 14.6 11.1 - 14.9 % [facility] RDW SD 48.5(H) 35.7 - 48.1 fL [facility] NRBC abs 0.00 0.00 - 0.01 K/cumm [facility] Blood 02/17/2025 4:32 PM CDT 02/17/2025 4:44 PM CDT us Juanita Rogers MD LAB BLOOD ORDERABLES Final Result [facility] Department [place] [address] * Blood culture Blood Peripheral (02/17/2025 4:32 PM CDT) Report Final Report: No growth Blood (Peripheral) 02/17/2025 4:32 PM CDT 02/17/2025 4:48 PM CDT Narrative [facility] - 02/22/2025 7:00 AM CDT Received [...] performance characteristics have been verified by the [facility]. For questions about this culture, contact the Microbiology Laboratory at [phone]. Interpretive data was last revised on 24. Juanita Rogers MD LAB MICROBIOLOGY - GENERAL ORDERABLES Final Result [facility] Department [place] [address] * Blood culture Blood Peripheral (02/17/2025 4:32 PM CDT) Report Final Report: No growth Blood (Peripheral) 02/17/2025 4:32 PM CDT 02/17/2025 4:47 PM CDT [facility] - 02/22/2025 7:00 AM CDT Received two [...] performance characteristics have been verified by the [facility]. For questions about this culture, contact the Microbiology Laboratory at [phone]. Interpretive data was last revised on 24. Juanita Rogers MD LAB MICROBIOLOGY - GENERAL ORDERABLES Final Result [facility] Department [place] [address] * (ABNORMAL) Comprehensive metabolic panel (02/17/2025 4:32 PM CDT) Pathologist [facility] Sodium 144 135 - 145 mmol/L Potassium, pl 3.3 3.3 - 4.9 mmol/L [facility] Chloride 104 97 - 110 mmol/L [facility] CO2 28 22 - 32 mmol/L [facility] Anion gap 12 2 - 15 mmol/L [facility] BUN 19 6 - 25 mg/dL [facility] Creatinine 1.05 0.80 - 1.30 mg/dL [facility] Glucose 98 70 - 199 mg/dL [facility] Comment: Interpretive Data Fasting glucose >/= [...] 2022. Calcium 8.4(L) 8.5 - 10.3 mg/dL [facility] Bilirubin, total 0.5 0.1 - 1.2 mg/dL [facility] Protein, pl 6.4(L) 6.5 - 8.5 g/dL [facility] Albumin 3.1(L) 3.5 - 5.0 g/dL [facility] Alk phos 87 40 - 130 Units/L [facility] ALT 16 7 - 55 Units/L [facility] AST 18 10 - 50 Units/L [facility] Blood 02/17/2025 4:32 PM CDT 02/17/2025 4:43 PM CDT us Juanita Rogers MD LAB BLOOD ORDERABLES Final Result [facility] Department [place] [address] * (ABNORMAL) Urinalysis reflex to microscopic and culture Urine (02/17/2025 3:48 PM CDT) Color, ur Straw Yellow Clarity, ur Clear Clear [facility] Specific gravity, ur 1.015 1.003 - 1.030 [facility] pH, urine 6.0 [facility] Comment: Interpretive Data U rine pH is affected by diet, medications, systemic acid-base disturbances, and renal tubular function. pH may affect urinary stone formation. For example, urine pH below 6.0 may help reduce the tendency for calcium phosphate stones and pH greater than 6.0 may reduce the tendency for uric acid stone formation. Source: [facility] [place] Current Interpretive Data was last revised on 2017 Protein, ur ql Trace Negative [facility] Glucose, ur ql Negative Negative [facility] Ketones, ur Trace Negative [facility] Bilirubin, ur Negative Negative [facility] Blood, ur Negative Negative [facility] Urobilinogen, ur <2.0 <2.0 mg/dL [facility] Nitrite, ur Negative Negative [facility] Leukocyte esterase, ur Trace(A) Negative [facility] UA reflex comment Reflex to microscopic UA will be performed. [facility] Urine 02/17/2025 3:48 PM CDT 02/17/2025 4:42 PM CDT Jean Marie Reid MD LAB MICROBIOLOGY - GENE RAL ORDERABLES Final Result Performing Organization Address [facility] Co de Phone Number [facility] Department [place] [address] * Urinalysis, microscopic only (02/17/2025 3:48 PM CDT) WBC, ur 0-5 0 - 5 /HPF RBC, ur 0-2 0 - 2 /HPF [facility] Epithelial cells, squamous, ur 1-5 0 - 5 /HPF [facility] Urine 02/17/2025 3:48 PM CDT 02/17/2025 4:42 PM CDT Jean Marie Reid MD LAB URINE ORDERABLES Fi nal Result Performing Organization Address [facility] Co de Phone Number [facility] Department [place] [address] * Urine culture Urine, suprapubic catheter (02/17/2025 3:48 PM CDT) Report Final Report: Less than 100,000 colonies/mL (clinically insignificant growth based on current clinical standards) Organism (CLINICALLY INSIGNIFICANT GROWTH [facility] Urine, suprapubic catheter 02/17/2025 3:48 PM CDT 02/17/2025 4:40 PM CDT Narrative [facility] - 02/18/2025 6:14 PM CDT Specimen received in a sterile container. Indications for Culture:->Recent positive UA Testing performed by [facility] ([phone]) Jean Marie Reid MD LAB MICROBIOLOGY - GENE RAL ORDERABLES Final Result Performing Organization Address [facility] Co de Phone Number [facility] [place] [address] * COLONOSCOPY (01/01/2020 8:32 AM CDT) Anatomical Region Laterality Modality Other Narrative Procedure Note Madi Melendez MD - 01/01/2020 8:32 AM CDT ENDOSCOPY LAB Patient Name: Jerome Askew Procedure Date: 01/01/2020 8:32 AM Admit Type: Outpatient Room: [facility] Date of : 1950 Instrument Name: [id number] Gender: Male Note Status: Finalized Procedure: Colonoscopy Indications: Abdominal pain in the left lower quadrant,constipation, date of last scope unknown, better with [id number] Comorbidities spastic paraplegia Providers: Madi Melendez M.D. [...] 5 years for surveillance given polyp discovery.Continue [address] Attending Participation: I personally performed the [...] Viveros RN 02/10/2021 04/23/2024 Insurance IDPA MEDICARE [id number] [place] [address] [place] MEDICARE [employer] [facility] [place] [facility] [place] [facility] [id number] [place] [address] MEDICARE * Guarantor: Jerome Askew Account Type Relation to Patient Date of Phone Billing Address Personal/Family Self 1950 [facility] [id number] [place] [address] MEDICARE IDPA Advance Directives For more information, please contact: [phone] Documents on File Type Date Recorded Patient Interventional Radiology Tech Expl anation ADVANCE DIRECTIVE 03/15/2025 7:55 AM POLST ADVANCE DIRECTIVE 02/25/2025 11:32 AM POLS T ADVANCE DIRECTIVE 02/22/2025 11:19 AM POLS T ADVANCE DIRECTIVE 02/11/2021 10:49 AM DNR ADVANCE DIRECTIVE 12/27/2019 8:11 AM DNR ADVANCE DIRECTIVE 06/15/2013 12:00 AM POW [facility] [employer]ICAL * Full Code (Latest Code Status [...] 10:50 PM 10/27/2023 7:11 PM Care Teams Labor Arbitrator Hearing Office Relationship Specialty Start Date End Date Shant Loaiza MD [address] [facility] [address] PCP - General Internal Medicine 04/04/25
--- OUTSIDE RECORDS SUMMARY | 2025-04-30 17:12 | XMS_ITS | Encounter Summary ---
Author Organization [facility] Address [address] [place] [address] Care Team Providers Care Hadoop Java Developer Name Role Phone Unavailable Primary Care Provider Unavailabl e Encounter Details Date Type Department Care Team (Latest Contact Info) Description 03/15/2006 Inpatient Historical HIS PATIENT IN A BED Yenny Hauser MD NO ADDRESS ON FILE Devan Agrawal MD [address] [facility] 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 Gender Identity Not on file Sexual [...] ORDERABLES Final R esult Performing Organization Address City/[facility] Phone Number INTERFACE SYSTEM Refer [...] ORDERABLES Final R esult Performing Organization Address City/[facility] Phone Number INTERFACE SYSTEM Refer to clinic/hospital department * MAGNESIUM LEVEL (03/19/2006 4:38 AM CDT) MAGNESIUM 1.7 1.5 - 2.5 mg/dL INTERFACE SYSTEM 03/19/2006 4:38 AM CDT Yenny Hauser MD CHEMISTRY ORDERABLES Final Re sult Performing Organization Address City/[facility] Co de Phone Number INTERFACE [...] ORDERABLES Final Re sult Performing Organization Address City/[facility] Co de Phone Number INTERFACE SYSTEM Refer to clinic/hospital department * VANCOMYCIN LEVEL TROUGH (03/18/2006 11:30 AM CDT) Pathologist [facility] VANCOMYCIN, TROUGH 11.5 5.0 - 15.0 ug/mL INTERFACE SYSTEM Comment: Vancomycin Trough Toxic Level= >15.0 ug/mL 03/18/2006 11:3 0 AM CDT Yenny Hauser MD CHEMISTRY ORDERABLES Final Re sult Performing Organization Address [facility] Co de Phone Number INTERFACE SYSTEM Refer to clinic/hospital department * (ABNORMAL) CBC WITH DIFFERENTIAL (03/18/2006 9:08 AM CDT) Pathologist [facility] NEUTROPHILS 76(H) 45 - 70 [...] ORDERABLES Final Res ult Performing Organization Address City/[facility] de Phone Number INTERFACE SYSTEM Refer [...] Final Resu lt Performing Organization Address [facility] Phone Number INTERFACE SYSTEM Refer [...] ORDERABLES Final Result Performing Organization Address [facility] Phone Number INTERFACE SYSTEM Refer [...] ORDERABLES Final Result Performing Organization Address [facility] Phone Number INTERFACE SYSTEM Refer to clinic/hospital department * (ABNORMAL) C-REACTIVE PROTEIN (03/17/2006 4:45 AM CDT) CRP 2.4(H) 0.0 - 0.8 mg/dL INTERFACE SYSTEM 03/17/2006 4:45 AM CDT Historical Provider CHEMISTRY ORDERABLES Final R esult Performing Organization Address [facility] Phone Number INTERFACE SYSTEM Refer [...] ORDERABLES Final R esult Performing Organization Address City/[facility] Phone Number INTERFACE SYSTEM Refer to clinic/hospital department * (ABNORMAL) ACETONE QUALITATIVE (03/16/2006 6:30 PM CDT) ACETONE QUAL 2+ (30 mg/dL)(A) Neg (<10 mg/dL) INTERFACE SYSTEM 03/16/2006 6:30 PM CDT us Historical Provider CHEMISTRY ORDERABLES Final R esult Performing Organization Address [facility] Phone Number INTERFACE SYSTEM Refer to clinic/hospital department * LACTIC ACID (03/16/2006 6:30 PM CDT) LACTIC ACID 1.0 0.5 - 2.2 mmol/L INTERFACE SYSTEM 03/16/2006 6:30 PM CDT us Historical Provider CHEMISTRY ORDERABLES Final R esult Performing Organization Address [facility] Phone Number INTERFACE SYSTEM Refer [...] Final Resu lt Performing Organization Address [facility] Phone Number INTERFACE SYSTEM Refer [...] HEMATOLOGY ORDERABLES Final Result Performing Organization Address City/[facility] Phone Number INTERFACE SYSTEM Refer [...] ORDERABLES Final R esult Performing Organization Address City/[facility] de Phone Number INTERFACE SYSTEM Refer [...] Final Res ult Performing Organization Address [facility] Phone Number INTERFACE SYSTEM Refer [...] Final Res ult Performing Organization Address [facility] de Phone Number INTERFACE SYSTEM Refer [...]
--- OUTSIDE RECORDS SUMMARY | 2025-04-30 17:12 | XMS_ITS | Encounter Summary ---
Author Organization [employer] Address 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 Phone Number INTERFACE SYSTEM Refer to [...] Re sult Performing Organization Address [facility] Phone Number INTERFACE SYSTEM Refer to [...] fL INTERFACE SYSTEM 03/14/2006 4:37 AM CDT [facility] Final Re sult Performing Organization Address [facility] Phone Number INTERFACE SYSTEM Refer to clinic/hospital department * MAGNESIUM LEVEL (03/14/2006 4:37 AM CDT) MAGNESIUM 2.0 1.5 - 2.5 mg/dL INTERFACE SYSTEM 03/14/2006 4:37 AM CDT Rita Esqueda MD CHEMISTRY ORDERABLES Final Res ult Performing Organization Address [facility] Phone Number INTERFACE SYSTEM Refer to [...] mmol/L INTERFACE SYSTEM 03/14/2006 4:37 AM CDT [facility] ORDER[facility] Final Res ult Performing Organization Address [facility] Phone Number INTERFACE SYSTEM Refer to clinic/hospital department * (ABNORMAL) C-REACTIVE PROTEIN (03/14/2006 4:37 AM CDT) CRP 4.1(H) 0.0 - 0.8 mg/dL INTERFACE SYSTEM 03/14/2006 4:37 AM CDT [facility] CHEMISTRY ORDERABLES Final Res ult Performing Organization Address [facility] Phone Number INTERFACE SYSTEM Refer to clinic/hospital department * VANCOMYCIN LEVEL TROUGH (03/13/2006 1:02 PM CDT) VANCOMYCIN, TROUGH 8.7 5.0 - 15.0 ug/mL INTERFACE SYSTEM Comment: Vancomycin Trough Toxic Level= >15.0 ug/mL 03/13/2006 1:02 PM CDT [facility] CHE[facility]ABLES Final Res ult Performing Organization Address [facility] Phone Number INTERFACE SYSTEM Refer to [...] R esult Performing Organization Address [facility] Phone Number INTERFACE SYSTEM Refer to clinic/hospital department * C-REACTIVE PROTEIN, CSF (03/12/2006 3:10 PM CDT) CRP, CSF 0.15 mg/dL INTERFACE SYSTEM Comment: Note: New methodology using CSF CRP (highly sensitive) assay is effective 12/11/03. No reference range has been established for CSF CRP. 03/12/2006 3:10 PM CDT Alexa Dillon MD BODY FLUIDS AND STOOLS Final Result Performing Organization Address [facility] Phone Number INTERFACE SYSTEM Refer to [...] AND STOOLS Final Result Performing Organization Address [facility] Phone Number INTERFACE SYSTEM Refer to clinic/hospital department * (ABNORMAL) TOTAL PROTEIN, CSF (03/12/2006 3:10 PM CDT) PROTEIN, CSF 365(H) 15 - 45 mg/dL INTERFACE SYSTEM Comment: New CSF Protein Quantitative Methodology - Note New Reference Range. bloody sample 03/12/2006 3:10 PM CDT Aman Gottlieb DO BODY FLUIDS AND STOOLS Final Result Performing Organization Address [facility] Phone Number INTERFACE SYSTEM Refer to [...] PM and read back verified. RBC, CSF 410405(H) <=0 /uL INTERFACE SYSTEM 03/12/2006 3:10 PM CDT us Aman Gottlieb DO BODY FLUIDS AND STOOLS Final Result Performing Organization Address [facility] de Phone Number INTERFACE [...] Final Result Performing Organization Address [facility] de Phone Number INTERFACE [...] Final Result Performing Organization Address [facility] Phone Number INTERFACE SYSTEM Refer to [...] R esult Performing Organization Address [facility] de Phone Number INTERFACE [...] HEMATOLOGY ORDERABLES Final Result Performing Organization Address City/[facility] de Phone Number INTERFACE [...] HEMATOLOGY ORDERABLES Final Result Performing Organization Address City/[facility] Co de Phone Number INTERFACE SYSTEM Refer to clinic/hospital department * (ABNORMAL) C-REACTIVE PROTEIN (03/11/2006 4:40 AM CDT) CRP 6.5(H) 0.0 - 0.8 mg/dL INTERFACE SYSTEM 03/11/2006 4:40 AM CDT Sushil Arroyo MD CHEMISTRY ORDERABLES Final R [facility] Performing Organization Address [facility] Phone Number INTERFACE SYSTEM Refer to [...] Sushil Arroyo MD CHEMISTRY ORDERABLES Final R esrust Performing Organization Address [facility] Phone Number INTERFACE SYSTEM Refer to [...] patients with mechanical heart valves or post NE. Pediatric (12 years and under): 1.5 - [...] Final Result Performing Organization Address [facility] Phone Number INTERFACE SYSTEM Refer to [...] Resul t Performing Organization Address [facility] de Phone Number INTERFACE [...] HEMATOLOGY ORDERABLES Final Result Performing Organization Address City/[facility] de Phone Number INTERFACE [...] patients with mechanical heart valves or post NE. Pediatric (12 years and under): 1.5 - [...] Final Result Performing Organization Address [facility] de Phone Number INTERFACE [...] patients with mechanical heart valves or post NE. Pediatric (12 years and under): 1.5 - [...] ORDERABLES Final Res ult Performing Organization Address City/[facility] de Phone Number INTERFACE [...] Res ult Performing Organization Address [facility] Phone Number INTERFACE SYSTEM Refer to [...] Res ult Performing Organization Address [facility] Phone Number INTERFACE SYSTEM Refer to clinic/hospital department * (ABNORMAL) C-REACTIVE PROTEIN (03/08/2006 6:34 PM CDT) CRP 5.2(H) 0.0 - 0.8 mg/dL INTERFACE SYSTEM 03/08/2006 6:34 PM CDT us Keenan Mandujano MD CHEMISTRY ORDERABLES Final Resu lt Performing Organization Address [facility] [place] Phone Number INTERFACE SYSTEM Refer to clinic/hospital [...] Final Result Performing Organization Address [facility] Phone Number INTERFACE SYSTEM Refer to [...] patients with mechanical heart valves or post NE. Pediatric (12 years and under): 1.5 - [...] Final Result Performing Organization Address [facility] Phone Number INTERFACE SYSTEM Refer to [...] Resul t Performing Organization Address [facility] Phone Number INTERFACE SYSTEM Refer to [...] Final Result Performing Organization Address [facility] Phone Number INTERFACE SYSTEM Refer to [...] INTERFACE SYSTEM 03/05/2006 4:48 AM CDT Sushil Aroryo MD HEMATOLOGY ORDERABLES Final Result Performing Organization Address [facility] de Phone Number INTERFACE [...] ORDERABLES Final R esult Performing Organization Address [facility] de Phone Number INTERFACE [...] patients with mechanical heart valves or post NE. Pediatric (12 years and under): 1.5 - [...] Final Result Performing Organization Address [facility] Phone Number INTERFACE SYSTEM Refer to [...] Final Result Performing Organization Address [facility] Phone Number INTERFACE SYSTEM Refer to [...] Final Result Performing Organization Address [facility] Phone Number INTERFACE SYSTEM Refer to [...] Final Result Performing Organization Address [facility] Phone Number INTERFACE SYSTEM Refer to [...] R esult Performing Organization Address [facility] de Phone Number INTERFACE [...] Final Result Performing Organization Address [facility] Phone Number INTERFACE SYSTEM Refer to [...] HEMATOLOGY ORDERABLES Final Result Performing Organization Address City/[facility] Co de Phone Number INTERFACE SYSTEM [...] INTERFACE SYSTEM 02/26/2006 12:4 4 PM CDT [facility] HEMATOLOGY ORDERABLES Final Re sult Performing Organization Address City/[facility] de Phone Number INTERFACE SYSTEM Refer to clinic/hospital department * C-REACTIVE PROTEIN (02/26/2006 12:44 PM CDT) CRP 0.2 0.0 - 0.8 mg/dL INTERFACE SYSTEM 02/26/2006 12:4 4 PM CDT [facility] CHEMISTRY ORDERABLES Final Res ult Performing Organization Address [facility] de Phone Number INTERFACE [...] Res ult Performing Organization Address [facility] Phone Number INTERFACE SYSTEM Refer to [...] Resul t Performing Organization Address [facility] Phone Number INTERFACE SYSTEM Refer to [...] K/uL INTERFACE SYSTEM 02/25/2006 4:36 AM CDT [facility] HEMATOLOGY ORDERABLES Final Re sult Performing Organization Address [facility] de Phone Number INTERFACE [...] fL INTERFACE SYSTEM 02/25/2006 4:36 AM CDT [facility] HEMATOLOGY ORDERABLES Final Re sult Performing Organization Address [facility] Phone Number INTERFACE SYSTEM Refer to [...] mmol/L INTERFACE SYSTEM 02/25/2006 4:36 AM CDT [facility] Zaid CHEMISTRY ORDERABLES Final Res ult Performing Organization Address [facility] Phone Number INTERFACE SYSTEM Refer to clinic/hospital department * C-REACTIVE PROTEIN (02/25/2006 4:36 AM CDT) CRP 0.2 0.0 - 0.8 mg/dL INTERFACE SYSTEM 02/25/2006 4:36 AM CDT [facility] CHEMISTRY ORDERABLES Final Res ult Performing Organization Address [facility] Phone Number INTERFACE SYSTEM Refer to [...] Final Result Performing Organization Address [facility] Phone Number INTERFACE SYSTEM Refer to [...] patients with mechanical heart valves or post NE. Pediatric (12 years and under): 1.5 - [...] patients with mechanical heart valves or post NE. Pediatric (12 years and under): 1.5 - [...] Final Result Performing Organization Address [facility] Phone Number INTERFACE SYSTEM Refer to [...] patients with mechanical heart valves or post NE. Pediatric (12 years and under): 1.5 - [...] Final Result Performing Organization Address [facility] Phone Number INTERFACE SYSTEM Refer to [...] Resul t Performing Organization Address [facility] Phone Number INTERFACE SYSTEM Refer to [...] patients with mechanical heart valves or post NE. Pediatric (12 years and under): 1.5 - [...] HEMATOLOGY ORDERABLES Final Result Performing Organization Address [facility] Phone Number INTERFACE SYSTEM Refer to [...] patients with mechanical heart valves or post NE. Pediatric (12 years and under): 1.5 - [...] Final Result Performing Organization Address [facility] de Phone Number INTERFACE [...] INTERFACE SYSTEM 02/09/2006 1:34 AM CDT Sushil Arryoo MD URINE ORDERABLES Final Resul t Performing Organization Address [facility] de Phone Number INTERFACE [...] patients with mechanical heart valves or post NE. Pediatric (12 years and under): 1.5 - [...] Res ult Performing Organization Address [facility] Phone Number INTERFACE SYSTEM Refer to [...] patients with mechanical heart valves or post NE. Pediatric (12 years and under): 1.5 - [...] Res ult Performing Organization Address [facility] Phone Number INTERFACE SYSTEM Refer to [...] patients with mechanical heart valves or post NE. Pediatric (12 years and under): 1.5 - [...] Final Result Performing Organization Address [facility] de Phone Number INTERFACE [...] Res ult Performing Organization Address [facility] Co de Phone Number INTERFACE SYSTEM [...] ORDERABLES Final Res ult Performing Organization Address City/[facility] Co de Phone Number INTERFACE SYSTEM [...] patients with mechanical heart valves or post NE. Pediatric (12 years and under): 1.5 - [...] HEMATOLOGY ORDERABLES Final Result Performing Organization Address City/[facility]/ZIP Co de Phone Number INTERFACE SYSTEM [...] Resul t Performing Organization Address [facility] Phone Number INTERFACE SYSTEM Refer to [...] Final Result Performing Organization Address [facility] Phone Number INTERFACE SYSTEM Refer to [...] Final Result Performing Organization Address [facility] de Phone Number INTERFACE [...] ORDERABLES Final R esult Performing Organization Address City/[facility]/[place]IP Co de Phone Number INTERFACE SYSTEM [...] patients with mechanical heart valves or post NE. Pediatric (12 years and under): 1.5 - [...] HEMATOLOGY ORDERABLES Final Result Performing Organization Address City/State/[facility] Co de Phone Number INTERFACE SYSTEM [...] patients with mechanical heart valves or post NE. Pediatric (12 years and under): 1.5 - [...] ORDERABLES Final Resu lt Performing Organization Address City/[facility] de Phone Number INTERFACE [...] Res ult Performing Organization Address [facility] de Phone Number INTERFACE [...] Res ult Performing Organization Address [facility] de Phone Number INTERFACE [...] patients with mechanical heart valves or post NE. Pediatric (12 years and under): 1.5 - [...] Res ult Performing Organization Address [facility] Phone Number INTERFACE SYSTEM Refer to [...] patients with mechanical heart valves or post NE. Pediatric (12 years and under): 1.5 - [...] Res t Performing Organization Address [facility] Phone Number INTERFACE SYSTEM Refer to [...] patients with mechanical heart valves or post NE. Pediatric (12 years and under): 1.5 - 3.0 Although the target range in children is not well established , INR values of 1.5 - 3.0 are recommended for most patients. Higher values have been used in children with prosthetic cardiac valves and hereditary clotting disorders. (<3 days) therapeutic ranges have not been established. 01/28/2006 4:52 AM CDT Result [facility] Keenan Mandujano MD HEMATOLOGY ORDERABLES Final [facility] Performing Organization Address [facility] Phone Number INTERFACE SYSTEM Refer to [...] patients with mechanical heart valves or post NE. Pediatric (12 years and under): 1.5 - [...] Res ult Performing Organization Address [facility] Phone Number INTERFACE SYSTEM Refer to [...] patients with mechanical heart valves or post NE. Pediatric (12 years and under): 1.5 - [...] Res ult Performing Organization Address [facility] Phone Number INTERFACE SYSTEM Refer to [...] patients with mechanical heart valves or post NE. Pediatric (12 years and under): 1.5 - [...] Res ult Performing Organization Address [facility] Phone Number INTERFACE SYSTEM Refer to [...] patients with mechanical heart valves or post NE. Pediatric (12 years and under): 1.5 - 3.0 Although the target range in children is not well established , INR values of 1.5 - 3.0 are recommended for most patients. Higher values have been used in children with prosthetic cardiac valves and hereditary clotting disorders. (<3 days) therapeutic ranges have not been established. 01/23/2006 4:57 AM CDT Result [facility] Keenan Mandujano MD HEMATOLOGY ORDERABLES Final Res ult Performing Organization Address [facility] Phone Number INTERFACE SYSTEM Refer to [...] patients with mechanical heart valves or post NE. Pediatric (12 years and under): 1.5 - [...] Res ult Performing Organization Address [facility] Phone Number INTERFACE SYSTEM Refer to [...] Resu lt Performing Organization Address [facility] Phone Number INTERFACE SYSTEM Refer to [...] patients with mechanical heart valves or post NE. Pediatric (12 years and under): 1.5 - [...] Res ult Performing Organization Address [facility] Phone Number INTERFACE SYSTEM Refer to [...] patients with mechanical heart valves or post NE. Pediatric (12 years and under): 1.5 - [...] Resu lt Performing Organization Address [facility] Phone Number INTERFACE SYSTEM Refer to [...] patients with mechanical heart valves or post NE. Pediatric (12 years and under): 1.5 - [...] ORDERABLES Final Resu lt Performing Organization Address City/[facility] Co de Phone Number INTERFACE SYSTEM [...] patients with mechanical heart valves or post NE. Pediatric (12 years and under): 1.5 - [...] HEMATOLOGY ORDERABLES Final Result Performing Organization Address [facility] Co de Phone Number INTERFACE SYSTEM [...] ORDERABLES Final R esult Performing Organization Address [facility] Co de Phone Number INTERFACE SYSTEM [...] ORDERABLES Final Resul t Performing Organization Address City/[facility]/ZIP Co de Phone Number INTERFACE SYSTEM Refer to clinic/hospital department documented in this encounter Visit Diagnoses Diagnosis Other specified rehabilitation procedure(V57.89)- Primary Other specified rehabilitation procedure documented in this encounter
--- OUTSIDE RECORDS SUMMARY | 2025-04-30 17:12 | XMS_ITS | Encounter Summary ---
Author Organization [employer] Address [address] [place] [address] Care Team Providers Care Roller Hand Name Role Phone Unavailable Primary Care Provider Unavailabl e Encounter Details Date Type Department Care Team (Late st Contact Info) Description 01/13/2006 Outpatient Historical [facility] ([facility]) [address] 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
--- OUTSIDE RECORDS SUMMARY | 2025-04-30 17:12 | XMS_ITS | Encounter Summary ---
Author Organization [facility] Address [address] [place] [address] Care Team Providers Care Air Turning Machine Feeder Name Role Phone Unavailable Primary Care Provider Unavailabl e Encounter Details Date Type Department Care Team (Late st Contact Info) Description 03/15/2006 Outpatient Historical [facility] Adult Hospitalists [address] [address] Yenny Hauser MD NO ADDRESS ON FILE Social History Tobacco Use Types Packs/Day Years Used Date Smoking Tobacco: Never Assessed Sex and Gender Information Value Date Recorded Sex Assigned at Not on file Legal Sex Male 3:46 AM PRIVACY SPECIALIST Gender Identity Not on file Sexual Orientation Not on file documented as of this encounter Plan of Treatment Not on file documented as of this encounter Visit Diagnoses Not on filedocumented in this encounter
--- OUTSIDE RECORDS SUMMARY | 2025-04-30 17:12 | XMS_ITS | Encounter Summary ---
Author Organization [facility] Address [address] [place] [address] Care Team Providers Care Science Intern Name Role Phone Unavailable Primary Care Provider Unavailabl e Encounter Details Date Type Department Care Team (Late st Contact Info) Description 03/10/2006 Outpatient Historical [facility] Adult Hospitalists [address] [address] Rita Esqueda MD [address] [address], [place] [address] Social History Tobacco Use Types Packs/Day Years Used Date Smoking Tobacco: Never Assessed Sex and Gender Information Value Date Recorded Sex Assigned at Not on file Legal Sex Male 3:46 AM DISH UP PERSON Gender Identity Not on file Sexual Orientation Not on file documented as of this encounter Plan of Treatment Not on file documented as of this encounter Visit Diagnoses Not on filedocumented in this encounter
--- OUTSIDE RECORDS SUMMARY | 2025-04-30 17:12 | XMS_ITS | Encounter Summary ---
Author Organization [facility] Address [address] [place] [address] Care Team Providers Care Debone Supervisor Name Role Phone Unavailable Primary Care Provider Unavailabl e Encounter Details Date Type Department Care Team (Late st Contact Info) Description 03/14/2006 Outpatient Historical [facility] Adult Hospitalists [facility] [address] [place] [address] Devan Agrawal MD [address] [facility] [address] [place] [address] Social History Tobacco Use Types Packs/Day Years Used Date Smoking Tobacco: Never Assessed Sex and Gender Information Value Date Recorded Sex Assigned at Not on file Legal Sex Male 3:46 AM PHILOSOPHY SPECIALIST Gender Identity Not on file Sexual Orientation Not on file documented as of this encounter Plan of Treatment Not on file documented as of this encounter Visit Diagnoses Not on filedocumented in this encounter
--- OUTSIDE RECORDS SUMMARY | 2025-04-30 17:12 | XMS_ITS | Encounter Summary ---
Author Organization [facility] Address [address] [facility] [place] [address] Care Team Providers Care Senior Php Software Developer Name Role Phone Rod Strauss MD Primary Care Provider + [phone] Encounter Details Date Type Department Care Team (Late st Contact Info) Description 03/13/2025 Lab Requisition [facility] [address] [place] [address] Unknown, Provider Social History Tobacco Use Types [...] medical care, and heating? Patient declined 05/31/2024 [facility] - [...] declined 05/31/2024 Housing Stability Vital Sign Answer Fiedl e Recorded In the last 12 months, was t here a time when you were not able to pay the mortgage or rent on time? Patient declined 05/31/20 24 In the past 12 months, how m any times have you moved where you were living? 0 05/31/2024 At any time in the past 12 m [facility], were you homeless or living in a residential (including now)? Patient declined 05/31/2024 Sex and Gender Information Value Date Recorded Sex Assigned at Not on file Legal Sex Male 5:23 PM FILTER PRESS PUMPER Gender Identity Not on file Sexual Orientation Not on file documented as of this encounter Functional Status * Is person deaf or have serious hearing difficulty? Answer Date of Assessment Author Yes 06/01/2024 12:21 PM FILTER PRESS PUMPER Princess Ohara RN * Is person blind or have serious difficulty seeing? Answer Date of Assessment Author No 06/01/2024 12:21 PM FILTER PRESS PUMPER Princess Ohara RN * Does person have serious difficulty walking/climbing stairs? Answer Date of Assessment Author Yes 06/01/2024 12:21 PM FILTER PRESS PUMPER Princess Ohara RN * Does person have difficulty dressing/bathing? Answer Date of Assessment Author Yes 06/01/2024 12:21 PM FILTER PRESS PUMPER Princess Ohara RN * Does person have difficulty doing errands alone? Answer Date of Assessment Author Yes 06/01/2024 12:21 PM FILTER PRESS PUMPER Princess Ohara RN documented as of this encounter Mental Status * Does person have difficulty concentrating/remembering/making decisions? Answer Entry Date Author No 06/01/2024 12:21 PM FILTER PRESS PUMPER Princess Ohara RN documented in this encounter Plan of Treatment Upcoming Encounters Date Type Department Care Team (Late st Contact Info) Description 05/14/2025 9:00 AM FILTER PRESS PUMPER Office Visit [facility] - Urology [address] [facility] [place] [address] Rustam Bernabe PA [address] [place] [address] documented as of this encounter [...] - 74 % 03/13/2025 6:26 PM CDT [facility] Lymphocyte % 1(L) 17 - 47 % 03/13/2025 6:26 PM CDT [facility] Monocyte % 7 3 - 11 % 03/13/2025 6:26 PM CDT [facility] Neutrophil Absolute 14.08(H) 1.60 - 7.50 x10E9/L 03/13/2025 6:26 PM CDT [facility] Lymphocyte Absolute 0.15(L) 1.00 - 4.40 x10E9/L 03/13/2025 6:26 PM CDT [facility] Monocyte Absolute 1.07(H) 0.15 - 1.00 x10E9/L 03/13/2025 6:26 PM CDT [facility] RBC Morphology NORMAL 03/13/2025 6:26 PM CDT [facility] Blood BLOOD SPECIMEN / Unknown 03/13/2025 4:40 PM CDT 03/13/2025 5:42 PM CDT us Provider Unknown LAB - HEMATOLOGY ORDERABLES Fin al Result [facility] [address] [place] [address] * (ABNORMAL) COMPREHENSIVE METABOLIC PANEL (03/13/2025 4:40 PM CDT) [facility] Glucose 118(H) 70 - 99 mg/dL 03/13/2025 6:07 PM [facility] Sodium 135(L) 136 - 145 mmol/L 03/13/2025 6:07 PM [facility] Potassium 3.6 3.5 - 5.1 mmol/L 03/13/2025 6:07 PM [facility] Chloride 98 98 - 107 mmol/L 03/13/2025 6:07 PM [facility] CO2 27 22 - 29 mmol/L 03/13/2025 6:07 PM [facility] Calcium 7.7(L) 8.4 - 10.4 mg/dL 03/13/2025 6:07 PM [facility] Anion Gap 10 6 - 16 mmol/L 03/13/2025 6:07 PM [facility] BUN 23 7 - 26 mg/dL 03/13/2025 6:07 PM [facility] Creatinine 0.74 0.72 - 1.25 mg/dL 03/13/2025 6:07 PM [facility] Alkaline Phosphatase 94 40 - 150 U/L 03/13/2025 6:07 PM [facility] ALT 31 6 - 57 U/L 03/13/2025 6:07 PM [facility] AST 39 10 - 48 U/L 03/13/2025 6:07 PM [facility] Protein Total 5.6(L) 6.4 - 8.3 gm/dL 03/13/2025 6:07 PM [facility] Albumin 2.5(L) 3.1 - 4.5 gm/dL 03/13/2025 6:07 PM [facility] Bilirubin Total 0.5 0.2 - 1.2 mg/dL 03/13/2025 6:07 PM [facility] eGFR by CKD-EPI >90 >=90 mL/min/1.7 3 m2 03/13/2025 6:07 PM [facility] Comment:Estimated Glomerular Filtration Rate (eGFR) calculated using the CKD-EPI Creatinine Equation (2020), per the National Kidney Foundation and [place] [employer] Neph[employer] recommendations. Blood BLOOD SPECIMEN / Unknown Venipuncture / Unknown 03/13/2025 4:40 PM CDT 03/13/2025 5:42 PM CDT us Provider Unknown LAB - CHEMISTRY ORDERABLES Joahnne triny Result [facility] [address] [place] [address] * (ABNORMAL) CBC WITH DIFFERENTIAL (03/13/2025 4:40 PM CDT) WBC 15.3(H) 4.0 - 10.7 x10E9/L 03/13/2025 6:26 PM CDT [facility] RBC Count 2.83(L) 4.30 - 5.80 x10E12/L 03/13/2025 6:26 PM CDT [facility] Hemoglobin 7.9(L) 13.3 - 17.5 g/dL 03/13/2025 6:26 PM CDT [facility] Hematocrit 25.5(L) 38.7 - 51.1 % 03/13/2025 6:26 PM CDT [facility] MCV 90.1 80.0 - 98.0 fL 03/13/2025 6:26 PM CDT [facility] MCH 27.9 26.7 - 33.6 pg 03/13/2025 6:26 PM CDT [facility] MCHC 31.0(L) 31.7 - 36.3 g/dL 03/13/2025 6:26 PM CDT [facility] RDW-CV 15.7(H) 11.3 - 14.8 % 03/13/2025 6:26 PM CDT [facility] Platelet Count 266 150 - 420 x10E9/L 03/13/2025 6:26 PM CDT [facility] MPV 10.8 7.8 - 11.4 fL 03/13/2025 6:26 PM CDT [facility] Blood BLOOD SPECIMEN / Unknown 03/13/2025 4:40 PM CDT 03/13/2025 5:42 PM CDT us Provider Unknown LAB - HEMATOLOGY ORDERABLES Fin al Result [facility] [address] [place] [address] documented in this encounter Visit Diagnoses Not on filedocumented in this encounter Additional Health Concerns Infection Onset Date Last Indicated Resolved Time ESBL GNR 06/01/2024 06/01/2024 documented as of this encounter Care Teams Senior Php Software Developer Relationship Specialty Start Date End Date Rod Strauss MD [address] [place] [id number] PCP - General Internal Medicine 06/15/24 documented as of this encounter
--- OUTSIDE RECORDS SUMMARY | 2025-04-30 17:12 | XMS_ITS | Encounter Summary ---
Author Organization [facility] Address 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
--- OUTSIDE RECORDS SUMMARY | 2025-04-30 17:12 | XMS_ITS | Clinical Summary ---
Author Organization [facility] [employer] Address [address] [facility] [place] [address] Care Team Providers Care Supervisor Statement Clerks Name Role Phone Rod Strauss MD Primary Care Provider [phone] Source Comments [facility] [employer],non-owned Affiliates and Associated Physician Practices is amultiple site organization consisting of ambulatory clinics and hospital sitesin [place], [place], [place] and [place]. This disclosure is being madepursuant to the Care Everywhere program and may not contain all information available regarding this patient. Last updated 18.[facility] [employer] Allergies Active Allergy Reactions Criticality Noted Date [...] (05/30/2024): Last Assessment & Plan: H/o L DRYWALL HANGER infarct 2019, continue asa/statin Hydronephrosis 05/10/2019 Pyelonephritis [...] that has since passed. Urine cx from [facility] on 05/04 also growing pseudomonas, resistant [...] to reach son and obtained collateral from [facility] - CT Head today. - Fall [...] Department Care Team Description 03/13/2025 Lab Requisition [facility] [address] [place] [address] Unknown, Provider from Last 3 Months Social [...] medical care, and heating? Patient declined 05/31/2024 [facility] - Occupational Stress [...] on file Legal Sex Male 5:23 PM HEATING TECHNICIAN Gender Identity Not on file Sexual Orientation Not on file Last Filed Vital Signs Vital Sign Reading Time Taken Comments Blood Pressure 135/77 06/15/2024 11:48 AM HEATING TECHNICIAN Pulse 74 06/15/2024 11:48 AM HEATING TECHNICIAN Temperature 36.4 C (97.6 F) 06/15/2024 8:35 AM HEATING TECHNICIAN Respiratory Rate 16 06/15/2024 11:48 AM HEATING TECHNICIAN Oxygen Saturation 97% 06/15/2024 11:48 AM HEATING TECHNICIAN Inhaled Oxygen Concentration 40% 06/04/2024 9 :43 AM HEATING TECHNICIAN Weight 88.5 kg (195 lb) 06/15/2024 8:35 AM HEATING TECHNICIAN Height 190.5 cm (6' 3) 06/15/2024 8:35 AM HEATING TECHNICIAN Body Mass Index 24.37 06/15/2024 8:35 AM HEATING TECHNICIAN Plan of Treatment Upcoming Encounters Date Type Department Care Team (Late st Contact Info) Description 05/14/2025 9:00 AM HEATING TECHNICIAN Office Visit [facility] - Urology [address] [facility] [place] [address] Rustam Bernabe PA [address] [place] [address] Health Maintenance Due Date Last [...] this topic Medical Devices Implanted Type Area Vaccine Specialist Device Identifier Shelf Expiration Date Model / Serial / Lot Synchromed Iii Pump Implanted:Qty: 1 on 06/04/2024 by Deshawn Schultz MD at [facility] Left: Abdomen [employer] 08/18/2025 8667-40 / [id number] / Ascenda Implanted:Qty: 1 on 06/04/2024 by Deshawn Schultz MD at [facility] Left: Abdomen [employer] 12/14/2024 [id number] / / [id number] Procedures Procedure Name Priority Date/Time Associated Diagnosis Comments DIFFERENTIAL MANUAL STAT 03/13/2025 4 :40 PM CDT COMPREHENSIVE METABOLIC PANEL STAT 03/13/2025 4:40 PM CDT CBC W AUTO DIFFERENTIAL STAT 03/13/2025 4:40 PM CDT HEPATITIS C AB SCREEN RFLX NAAT QUANT STAT 06/06/2024 11:49 AM HEATING TECHNICIAN from Last 3 Months or Most [...] - 1.00 x10E9/L 03/13/2025 6:26 PM CDT [facility] RBC Morphology NORMAL 03/13/2025 6:26 PM CDT [facility] Blood BLOOD SPECIMEN / Unknown 03/13/2025 4:40 PM CDT 03/13/2025 5:42 PM CDT us Provider Unknown LAB - HEMATOLOGY ORDERABLES Fin al Result [facility] [address] [place] [address] * (ABNORMAL) CBC WITH DIFFERENTIAL (03/13/2025 4:40 PM CDT) WBC 15.3(H) 4.0 - 10.7 x10E9/L 03/13/2025 6:26 PM CDT [facility] RBC Count 2.83(L) 4.30 - 5.80 x10E12/L 03/13/2025 6:26 PM CDT [facility] Hemoglobin 7.9(L) 13.3 - 17.5 g/dL 03/13/2025 6:26 PM CDT [facility] Hematocrit 25.5(L) 38.7 - 51.1 % 03/13/2025 6:26 PM T [facility] MCV 90.1 80.0 - 98.0 fL 03/13/2025 6:26 PM CDT [facility] MCH 27.9 26.7 - 33.6 pg 03/13/2025 6:26 PM CDT [facility] MCHC 31.0(L) 31.7 - 36.3 g/dL 03/13/2025 6:26 PM CDT [facility] RDW-CV 15.7(H) 11.3 - 14.8 % 03/13/2025 6:26 PM CDT [facility] Platelet Count 266 150 - 420 x10E9/L 03/13/2025 6:26 PM CDT [facility] MPV 10.8 7.8 - 11.4 fL 03/13/2025 6:26 PM CDT [facility] Blood BLOOD SPECIMEN / Unknown 03/13/2025 4:40 PM CDT 03/13/2025 5:42 PM CDT us Provider Unknown LAB - HEMATOLOGY ORDERABLES Fin al Result [facility] [address] [place] [address] * (ABNORMAL) COMPREHENSIVE METABOLIC PANEL (03/13/2025 4:40 PM CDT) [facility] Glucose 118(H) 70 - 99 mg/dL 03/13/2025 6:07 PM CDT [facility] Sodium 135(L) 136 - 145 mmol/L 03/13/2025 6:07 PM CDT [facility] Potassium 3.6 3.5 - 5.1 mmol/L 03/13/2025 6:07 PM [facility] Chloride 98 98 - 107 mmol/L 03/13/2025 6:07 PM [facility] CO2 27 22 - 29 mmol/L 03/13/2025 6:07 PM [facility] Calcium 7.7(L) 8.4 - 10.4 mg/dL 03/13/2025 6:07 PM [facility] Anion Gap 10 6 - 16 mmol/L 03/13/2025 6:07 PM CDT [facility] BUN 23 7 - 26 mg/dL 03/13/2025 6:07 PM CDT [facility] Creatinine 0.74 0.72 - 1.25 mg/dL 03/13/2025 6:07 PM [facility] Alkaline Phosphatase 94 40 - 150 U/L 03/13/2025 6:07 PM [facility] ALT 31 6 - 57 U/L 03/13/2025 6:07 PM [facility] AST 39 10 - 48 U/L 03/13/2025 6:07 PM [facility] Protein Total 5.6(L) 6.4 - 8.3 gm/dL 03/13/2025 6:07 PM [facility] Albumin 2.5(L) 3.1 - 4.5 gm/dL 03/13/2025 6:07 PM [facility] Bilirubin Total 0.5 0.2 - 1.2 mg/dL 03/13/2025 6:07 PM CDT [facility] eGFR by CKD-EPI >90 >=90 mL/min/1.7 3 m2 03/13/2025 6:07 PM CDT [facility] Comment:Estimated Glomerular Filtration Rate (eGFR) calculated using the CKD-EPI Creatinine Equation (2020), per the National Kidney Foundation and [place] [employer] Nephrology recommendations. Blood BLOOD SPECIMEN / Unknown Venipuncture / Unknown 03/13/2025 4:40 PM CDT 03/13/2025 5:42 PM CDT Provider Unknown LAB - CHEMISTRY ORDERABLES Johanne l Result Performing Organization Address City/[facility]/ZIP Co de Phone Number [facility] [address] [place] [address] * HEPATITIS C AB SCREEN RFLX NAAT QUANT (06/06/2024 11:49 AM HEATING TECHNICIAN) Hepatitis C Antibody Non-react lottie Non-reac tive 06/06/2024 1:01 PM HEATING TECHNICIAN [facility] Comment:Hepatitis C Antibody screen indicates no serologic evidence of past or current infection with Hepatitis C Virus. Patients with unexplained liver disease who are immunocompromised or suspected of having acute Hepatitis C infection may benefit from Nucleic Acid Test (NEIDA) for Hepatitis C Viral RNA to confirm Hepatitis C status. Blood BLOOD SPECIMEN / Unknown Lab Venipuncture / Unknown 06/06/2024 11:49 AM HEATING TECHNICIAN 06/06/2024 12:05 PM HEATING TECHNICIAN Salena Griffin RV REPAIRER-TOBACCO HANGER LAB - CHEMISTRY ORDERABLES F inal Result [facility] [address] [place] [id number] [phone] from Last 3 Months or Most Recently Relevant to Health Maintenance Additional Health Concerns Infection Onset Date Last Indicated ESBL GNR 06/01/2024 06/01/2024 Insurance [facility] [place] [id number] MEDICARE Advance Directives * Full Code (Latest Code Status on File) Date Activated Date Inactivated Comments 05/31/2024 11:27 PM 06/09/2024 8:37 PM Care Teams Supervisor Statement Clerks Relationship Specialty Start Date End Date Rod Strauss MD [address] [place] [phone] PCP - General Internal Medicine 06/15/24
--- OUTSIDE RECORDS SUMMARY | 2025-04-30 17:13 | XMS_ITS | Encounter Summary ---
Author Organization [facility] Address [address] [place] [address] Care Team Providers Care Cloth Worker Name Role Phone Unavailable Primary Care Provider Unavailabl e Encounter Details Date Type Department Care Team (Late st Contact Info) Description 01/12/2006 Outpatient Historical [facility] [address] [facility] [address] [phone] [place] [address] [place] [address] Social History Tobacco Use Types Packs/Day Years Used Date Smoking Tobacco: Never Assessed Sex and Gender Information Value Date Recorded Sex Assigned at Not on file Legal 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
--- OUTSIDE RECORDS SUMMARY | 2025-04-30 17:13 | XMS_ITS | Encounter Summary ---
Author Organization [facility] Address 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 Gender Identity Not on file Sexual Orientation [...] ORDERABLES Final Re sult Performing Organization Address [facility] Phone Number INTERFACE SYSTEM Refer to clinic/hospital department * C-REACTIVE PROTEIN (04/05/2006 5:15 AM CDT) Pathologist [facility] CRP 0.2 0.0 - 0.8 mg/dL INTERFACE SYSTEM 04/05/2006 5:15 AM CDT [facility] CHEMISTRY ORDERABLES Final Res ult Performing Organization Address [facility] Phone Number INTERFACE SYSTEM Refer to clinic/hospital department * (ABNORMAL) VANCOMYCIN LEVEL TROUGH (03/31/2006 11:15 AM CDT) Pathologist [facility] VANCOMYCIN, TROUGH 18.3(AA) 5.0 - 15.0 ug/mL INTERFACE SYSTEM Comment: Vancomycin Trough Toxic Level= >15.0 ug/mL Results called to Amy_ at 03/31/2006 12:05 PM and read back verified. 03/31/2006 11:1 5 AM CDT Sushil Arroyo MD CHEMISTRY ORDERABLES Final R esult Performing Organization Address [facility] Phone Number INTERFACE SYSTEM Refer to clinic/hospital department * (ABNORMAL) CBC WITH DIFFERENTIAL (03/29/2006 5:15 AM CDT) Pathologist [facility] NEUTROPHILS 64 45 - 70 % [...] ORDERABLES Final Res ult Performing Organization Address [facility] Phone Number INTERFACE SYSTEM Refer to clinic/hospital [...] ORDERABLES Final Res ult Performing Organization Address [facility] Phone Number INTERFACE SYSTEM Refer to clinic/hospital department * C-REACTIVE PROTEIN (03/29/2006 5:15 AM CDT) CRP 0.3 0.0 - 0.8 mg/dL INTERFACE SYSTEM 03/29/2006 5:15 AM CDT us Keenan Mandujano MD CHEMISTRY ORDERABLES Final Resu lt Performing Organization Address [facility] Phone Number INTERFACE SYSTEM Refer to clinic/hospital [...] ORDERABLES Final Resu lt Performing Organization Address [facility] Phone Number INTERFACE SYSTEM Refer to clinic/hospital [...] ORDERABLES Final Re sult Performing Organization Address [facility] Phone Number INTERFACE SYSTEM Refer to clinic/hospital [...] INTERFACE SYSTEM 03/24/2006 12:1 0 PM CDT [facility] HEMATOLOGY ORDERABLES Final Re sult Performing Organization Address [facility] Phone Number INTERFACE SYSTEM Refer to clinic/hospital department * VANCOMYCIN LEVEL TROUGH (03/24/2006 12:10 PM CDT) VANCOMYCIN, TROUGH 11.3 5.0 - 15.0 ug/mL INTERFACE SYSTEM Comment: Vancomycin Trough Toxic Level= >15.0 ug/mL 03/24/2006 12:1 0 PM CDT [employer] [facility] CHEMISTRY ORDERABLES Final Res ult Performing Organization Address [facility] Phone Number INTERFACE SYSTEM Refer to clinic/hospital department * C-REACTIVE PROTEIN (03/24/2006 12:10 PM CDT) CRP 0.6 0.0 - 0.8 mg/dL INTERFACE SYSTEM 03/24/2006 12:1 0 PM CDT [facility] CHEMISTRY ORDERABLES Final Res ult Performing Organization Address [facility] Phone Number INTERFACE SYSTEM Refer to clinic/hospital [...] Final Res ult Performing Organization Address [facility] Co de Phone Number INTERFACE [...] INTERFACE SYSTEM 03/23/2006 11:3 0 AM CDT [facility] HEMATOLOGY ORDERABLES Final Re sult Performing Organization Address [facility] de Phone Number INTERFACE SYSTEM Refer to clinic/hospital department * (ABNORMAL) CBC WITH DIFFERENTIAL (03/23/2006 11:30 AM CDT) Pathologist [facility] WBC 6.1 4.0 - 9.8 K/uL [...] INTERFACE SYSTEM 03/23/2006 11:3 0 AM CDT [facility] HEMATOLOGY ORDERABLES Final Re sult Performing Organization Address [facility] Co de Phone Number INTERFACE SYSTEM Refer to clinic/hospital department * VANCOMYCIN LEVEL TROUGH (03/23/2006 11:30 AM CDT) VANCOMYCIN, TROUGH 6.2 5.0 - 15.0 ug/mL INTERFACE SYSTEM Comment: Vancomycin Trough Toxic Level= >15.0 ug/mL 03/23/2006 11:3 0 AM CDT [facility] CHEMISTRY ORDERABLES Final Res ult Performing Organization Address [facility] Phone Number INTERFACE SYSTEM Refer to clinic/hospital department * (ABNORMAL) C-REACTIVE PROTEIN (03/23/2006 11:30 AM CDT) CRP 1.0(H) 0.0 - 0.8 mg/dL INTERFACE SYSTEM 03/23/2006 11:3 0 AM CDT us [facility] CHEMISTRY ORDERABLES Final Res ult Performing Organization Address [facility] Phone Number INTERFACE SYSTEM Refer [...] INTERFACE SYSTEM 03/23/2006 11:3 0 AM [facility] ORDER[facility]LES Final Res ult Performing Organization Address [facility] Phone Number INTERFACE SYSTEM Refer to clinic/hospital [...] ORDERABLES Final R esult Performing Organization Address [facility] Phone Number INTERFACE SYSTEM Refer to clinic/hospital [...] /HPF INTERFACE SYSTEM 03/22/2006 8:30 PM CDT [employer] URINE ORDERABLES Final Result Performing Organization Address [facility] Phone Number INTERFACE SYSTEM Refer to clinic/hospital [...] Sushil Arroyo MD CHEMISTRY ORDERABLES Final R [facility] Performing Organization Address [facility] de Phone Number INTERFACE SYSTEM Refer [...] Sushil Arroyo MD CHEMISTRY ORDERABLES Final R [facility] Performing Organization Address [facility] de Phone Number INTERFACE SYSTEM Refer [...] HEMATOLOGY ORDERABLES Final Result Performing Organization Address [facility] Phone Number INTERFACE SYSTEM Refer to clinic/hospital [...] HEMATOLOGY ORDERABLES Final Result Performing Organization Address [facility] Phone Number INTERFACE SYSTEM Refer to clinic/hospital [...] ORDERABLES Final R esult Performing Organization Address [facility] Phone Number INTERFACE SYSTEM Refer to clinic/hospital [...] ORDERABLES Final Resul t Performing Organization Address [facility] Phone Number INTERFACE SYSTEM Refer to clinic/hospital department documented in this encounter Visit Diagnoses Diagnosis Other specified rehabilitation procedure(V57.89)- Primary Other specified rehabilitation procedure documented in this encounter
--- OUTSIDE RECORDS SUMMARY | 2025-04-30 17:13 | XMS_ITS | Encounter Summary ---
Author Organization [facility] Address [address] [place] [address] Care Team Providers Care Equity Director Name Role Phone Unavailable Primary Care Provider Unavailabl e Encounter Details Date Type Department Care Team (Late st Contact Info) Description 01/09/2006 Outpatient Historical [facility] Trauma and General Surgery [address] [facility] [address] [place] [address] [place] [address] Social History Tobacco Use Types Packs/Day Years Used Date Smoking Tobacco: Never Assessed Sex and Gender Information Value Date Recorded Sex Assigned at Not on file 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
--- OUTSIDE RECORDS SUMMARY | 2025-04-30 17:13 | XMS_ITS | Encounter Summary ---
Author Organization [facility] Address [address] [place] [address] Care Team Providers Care Small Kick Press Operator Name Role Phone Unavailable Primary Care Provider Unavailabl e Encounter Details Date Type Department Care Team (Late st Contact Info) Description 05/13/2019 Lab Requisition [facility] Laboratory Services [address] [place] [address] [facility], External Provider [address] [place] [address] Other fatigue Social History Tobacco Use Types Packs/Day Years Used Date Smoking Tobacco: Never Assessed Sex and Gender Information Value Date Recorded Sex Assigned at Not on file Legal Sex Male 3:[address] SCAN TECHNOLOGIST Gender Identity Not on file Sexual Orientation Not on file documented as of this encounter Plan of Treatment Not on file documented as of this encounter Procedures Procedure Name Priority Date/Time Associated Diagnosis Comments CBC WITH DIFFERENTIAL Stat 05/13/2019 4:[address] SCAN TECHNOLOGIST Other fatigue BASIC METABOLIC PANEL Stat 05/13/2019 4:[address] SCAN TECHNOLOGIST Other fatigue documented in this encounter Results * (ABNORMAL) CBC WITH DIFFERENTIAL (05/13/2019 4:[address] SCAN TECHNOLOGIST) [facility] WBC 6.1 4.5 - 10.5 K/uL 05/13/2019 9:[address] SCAN TECHNOLOGIST [facility] LABORATORY SERVICES [facility] RBC 4.04(L) 4.50 - 5.40 M/uL 05/13/2019 9:[address] SCAN TECHNOLOGIST [facility] LABOR[facility] HEMOGLOBIN 12.1(L) 13.6 - 16.5 g/dL 05/13/2019 9:[address] SCAN TECHNOLOGIST [facility] HEMATOCRIT 37.1(L) 40.0 - 48.0 % 05/13/2019 9:52 PM [facility]ORY [facility] MCV 91.7 82.0 - 99.0 fL 05/13/2019 9:52 PM [facility] MCH 30.0 27.8 - 34.5 pg 05/13/2019 9:52 PM [facility] MCHC 32.7 32.5 - 35.5 g/dL 05/13/2019 9:52 PM [facility] RDW 14.9(H) 11.5 - 14.5 % 05/13/2019 9:52 PM [facility] PLATELETS 162 160 - 420 K/uL 05/13/2019 9:52 PM [facility] [employer] [facility] MPV 9.8 8.7 - 12.7 fL 05/13/2019 9:52 PM [facility] NEUTROPHILS 70 45 - 70 % 05/13/2019 9:52 PM [facility] LYMPHOCYTES 16 16 - 45 % 05/13/2019 9:52 PM [facility] MONOCYTES 10 3 - 13 % 05/13/2019 9:52 PM [facility] EOSINOPHILS 4 0 - 7 % 05/13/2019 9:52 PM [facility] BASOPHILS 1 0 - 2 % 05/13/2019 9:52 PM [facility] [employer] [facility] NEUTROPHIL ABSOLUTE 4.20 1.90 - 7.00 K/uL 05/13/2019 9:52 PM [facility] [facility] LYMPHOCYTE ABSOLUTE 0.90 K/uL 05/13/2019 9:52 PM [facility] MONOCYTE ABSOLUTE 0.60 K/uL 05/13/2019 9:52 PM [facility] EOSINOPHIL ABSOLUTE 0.30 0.00 - 0.70 K/uL 05/13/2019 9:52 PM [facility] BASOPHILS ABSOLUTE 0.00 K/uL 05/13/2019 9:52 PM [facility] [employer] [facility] Blood BLOOD SPECIMEN / Unknown Collection / Unknown 05/13/2019 4:[address] SCAN TECHNOLOGIST 05/13/2019 9:[address] SCAN TECHNOLOGIST us External Provider [facility] HEMATOLOGY ORDERABLES Fin al Result [facility] [employer] [facility] LESTER# [id number] [place] [address] * (ABNORMAL) BASIC METABOLIC PANEL (05/13/2019 4:[address] SCAN TECHNOLOGIST) SODIUM 143 136 - 145 mmol/L 05/13/2019 10:11 PM [facility] [employer] [facility] POTASSIUM 4.2 3.4 - 5.1 mmol/L 05/13/2019 10:11 PM [facility] [facility] CHLORIDE 104 98 - 107 [...] 74 - 99 mg/dL 05/13/2019 10:11 PM [facility] GFR >60 mL/min/1.7 3 sq meter 05/13/2019 10:11 PM [facility] [facility] Comment: eGFR has not been [...] mL/min/1.7 3 sq meter 05/13/2019 10:[address] SCAN TECHNOLOGIST [facility] LABORATORY SERVICES [facility] ANION GAP 12 8 - 16 mmol/L 05/13/2019 10:[address] SCAN TECHNOLOGIST [facility] LABORATORY [facility] Blood BLOOD SPECIMEN / Unknown Collection / Unknown 05/13/2019 4:[address] SCAN TECHNOLOGIST 05/13/2019 9:[address] SCAN TECHNOLOGIST External Provider [facility] CHEMISTRY ORDERABLES Johanne l Result [facility] LABORATORY [facility] CLIA# [id number] [place] [address] documented in this encounter Visit Diagnoses Diagnosis Other fatigue documented in this encounter
--- OUTSIDE RECORDS SUMMARY | 2025-04-30 17:13 | XMS_ITS | Encounter Summary ---
Author Organization [facility] Address [address] [place] [address] Care Team Providers Care Utility Hand Name Role Phone Unavailable Primary Care Provider Unavailabl e Encounter Details Date Type Department Care Team (Late st Contact Info) Description 01/06/2006 Outpatient Historical [facility] Trauma and General Surgery [address] [facility] [address] [facility] [place] [address] Jayden James MD [address] [facility] [facility] [address] [facility] [place] [address] Social History Tobacco Use Types Packs/Day Years Used Date Smoking Tobacco: Never Assessed Sex and Gender Information Value Date Recorded Sex Assigned at Not on file Legal 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
--- OUTSIDE RECORDS SUMMARY | 2025-04-30 17:13 | XMS_ITS | Encounter Summary ---
Author Organization [facility] Address [address] [place] [address] Care Team Providers Care Student Finance Advisor Name Role Phone Unavailable Primary Care Provider Unavailabl e Encounter Details Date Type Department Care Team (Late st Contact Info) Description 09/26/2019 Lab Requisition [facility] Laboratory Services [address] [place] [address] [facility], External Provider [address] [place] [address] Unspecified abnormal findings in urine Social History Tobacco Use Types Packs/Day Years Used Date Smoking Tobacco: Never Assessed Sex and Gender Information Value Date Recorded Sex Assigned at Not on file 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 Gender Identity Not on file Sexual [...] - 145 mmol/L 09/26/2019 8:53 PM CDT [facility]ORATORY [facility] - [facility] POTASSIUM 5.1 3.4 - 5.1 mmol/L 09/26/2019 8:53 PM CDT [facility]ORY [facility] - [facility] CHLORIDE 105 98 - 107 mmol/L 09/26/2019 8:53 PM [facility] CO2 23 22 - 29 mmol/L 09/26/2019 8:53 PM [facility] CALCIUM 8.6 8.6 - 10.4 mg/dL 09/26/2019 8:53 PM [facility] BUN 28(H) 6 - 20 mg/dL 09/26/2019 8:53 PM [facility] CREATININE 1.07 0.67 - 1.17 mg/dL 09/26/2019 8:53 PM [facility] Comment:The GFR result is no t clinically significant on patients <18 or >70 years of age. GLUCOSE 83 74 - 99 mg/dL 09/26/2019 8:53 PM [facility] TOTAL PROTEIN 6.7 6.3 - 8.7 g/dL 09/26/2019 8:53 PM [facility] ALBUMIN 4.2 3.5 - 5.2 g/dL 09/26/2019 8:53 PM [facility] BILIRUBIN TOTAL 0.3 0.2 - 1.3 mg/dL 09/26/2019 8:53 PM [facility] ALKALINE PHOSPHATASE 99 40 - 150 U/L 09/26/2019 8:53 PM [facility] AST 18 0 - 41 U/L 09/26/2019 8:53 PM [facility] ALT 18 0 - 41 U/L 09/26/2019 8:53 PM [facility] GFR >60 mL/min/1.7 3 sq meter 09/26/2019 8:53 PM [facility] Comment: eGFR has not been validated for [...] sq meter 09/26/2019 8:53 PM CDT [facility] ANION GAP 14 8 - 16 mmol/L 09/26/2019 8:53 PM CDT [facility] Blood BLOOD SPECIMEN / Unknown Collection / Unknown 09/26/2019 3:44 PM CDT 09/26/2019 8:17 PM CDT us External Provider [facility] CHEMISTRY ORDERABLES Johanne l Result [facility] CLIA# [id number] [place] [address] * (ABNORMAL) CBC WITH DIFFERENTIAL (09/26/2019 3:44 PM CDT) WBC 6.6 4.5 - 10.5 K/uL 09/26/2019 8:26 PM CDT [facility] RBC 3.80(L) 4.50 - 5.40 M/uL 09/26/2019 8:26 PM CDT [facility] HEMOGLOBIN 11.5(L) 13.6 - 16.5 g/dL 09/26/2019 8:26 PM CDT [facility] HEMATOCRIT 34.3(L) 40.0 - 48.0 % 09/26/2019 8:26 PM CDT [facility] MCV 90.2 82.0 - 99.0 fL 09/26/2019 8:26 PM CDT [facility] MCH 30.2 27.8 - 34.5 pg 09/26/2019 8:26 PM CDT [facility] MCHC 33.5 32.5 - 35.5 g/dL 09/26/2019 8:26 PM CDT [facility] RDW 15.8(H) 11.5 - 14.5 % 09/26/2019 8:26 PM CDT [facility] PLATELETS 175 160 - 420 K/uL 09/26/2019 8:26 PM CDT [facility] MPV 10.2 8.7 - 12.7 fL 09/26/2019 8:26 PM CDT [facility] NEUTROPHILS 68 45 - 70 % 09/26/2019 8:26 PM CDT [facility] LYMPHOCYTES 16 16 - 45 % 09/26/2019 8:26 PM CDT [facility] MONOCYTES 10 3 - 13 % 09/26/2019 8:26 PM CDT [facility] LABORATORY SERVICES [facility] EOSINOPHILS 5 0 - 7 % 09/26/2019 8:26 PM CDT [facility]ORATORY SERVICES [facility] BASOPHILS 1 0 - 2 % 09/26/2019 8:26 PM CDT [facility] NEUTROPHIL ABSOLUTE 4.50 1.90 - 7.00 K/uL 09/26/2019 8:26 PM CDT [facility] LYMPHOCYTE ABSOLUTE 1.10 0.70 - 4.50 K/uL 09/26/2019 8:26 PM CDT [facility] MONOCYTE ABSOLUTE 0.60 0.10 - 1.30 K/uL 09/26/2019 8:26 PM CDT [facility] EOSINOPHIL ABSOLUTE 0.40 0.00 - 0.70 K/uL 09/26/2019 8:26 PM CDT [facility] BASOPHILS ABSOLUTE 0.00 0.00 - 0.20 K/uL 09/26/2019 8:26 PM CDT [facility] Blood BLOOD SPECIMEN / Unknown Collection / Unknown 09/26/2019 3:44 PM CDT 09/26/2019 8:17 PM CDT us External Provider [facility] HEMATOLOGY ORDERABLES Fin al Result [facility] CLIA# [id number] [place] [address] * (ABNORMAL) URINALYSIS WITH REFLEX MICROSCOPIC (09/26/2019 3:00 PM CDT) COLOR UA Yellow Pale to Dark Yellow 09/26/2019 8:52 PM CDT [facility] CLARITY UA Slightly Cloudy(A) Clear 09/26/2019 8:52 PM CDT [facility] SPECIFIC GRAVITY UA 1.019 1.003 - 1.035 09/26/2019 8:52 PM CDT [facility] PH UA 5.0 5.0 - 8.0 09/26/2019 8:52 PM CDT [facility] LEUKOCYTE ESTERASE UA Negative Negative 09/26/2019 8:52 PM CDT [facility] NITRITE UA Negative Negative 09/26/2019 8:52 PM CDT [facility] PROTEIN UA Negative Negative 09/26/2019 8:52 PM CDT [facility] GLUCOSE UA Negative Negative 09/26/2019 8:52 PM CDT [facility] KETONES UA Negative Negative 09/26/2019 8:52 PM CDT [facility] UROBILINOGEN UA Normal <2.0 mg/dL 0 8:52 PM CDT [facility] BILIRUBIN UA Negative Negative 09/26/2019 8:52 PM CDT [facility] BLOOD UA Negative Negative 09/26/2019 8:52 PM CDT [facility] Comment:Ascorbic acid may ca use false negative results for blood. A microscopic review was reflexed to rule out this interference. WBC UA 0-2 0 - 2 /hpf 09/26/2019 8:52 PM [facility] RBC UA 0-2 0 - 2 /hpf 09/26/2019 8:52 PM CDT [facility] BACTERIA UA 1+(A) Negative /hpf 09/26/2019 8:52 PM CDT [facility] EPITHELIAL CELLS, URINE 0-5 0 - 5 /hpf 09/26/2019 8:52 PM CDT [facility] HYALINE CAST 0-2 None Seen, 0-2 /lpf 09/26/2019 8:52 PM CDT [facility] Ascorbic Acid UA Positive(A) Negative 020 8:52 PM CDT [facility] Urine URINE SPECIMEN OBTAINED BY CLEAN CATCH PROCEDURE / Unknown Collection / Unknown 09/26/2019 3:00 PM CDT 09/26/2019 8:17 PM CDT us External Provider [facility] URINE ORDERABLES Final Re sult [facility] CLIA# [id number] [address] [place] [address] documented in this encounter Visit Diagnoses Diagnosis Unspecified abnormal findings in urine documented in this encounter
--- OUTSIDE RECORDS SUMMARY | 2025-04-30 17:13 | XMS_ITS | Encounter Summary ---
Author Organization [facility] Address [address] [place] [address] Care Team Providers Care Salad Bar Clerk Name Role Phone Unavailable Primary Care Provider Unavailabl e Encounter Details Date Type Department Care Team (Late st Contact Info) Description 01/11/2006 Outpatient Historical [facility] Trauma and General Surgery [address] [address] [place] [address] [place] [address] Social History Tobacco Use Types Packs/Day Years Used Date Smoking Tobacco: Never Assessed Sex and Gender Information Value Date Recorded Sex Assigned at Not on file 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
--- OUTSIDE RECORDS SUMMARY | 2025-04-30 17:13 | XMS_ITS | Encounter Summary ---
Author Organization [facility] Address 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 Gender Identity Not on file Sexual [...] Final Res ult Performing Organization Address [facility] Phone Number INTERFACE SYSTEM [...] Final Res ult Performing Organization Address [facility] Phone Number INTERFACE SYSTEM [...] ORDERABLES Final Resu lt Performing Organization Address [facility] Phone Number INTERFACE SYSTEM Refer to clinic/hospital department * (ABNORMAL) POC GLUCOSE (01/08/2006 9:26 PM CDT) GLUCOSE POC 133(H) 65 - 109 mg/dL INTERFACE SYSTEM 01/08/2006 9:26 PM CDT José Fine MD POINT OF CARE TESTING Final Result Performing Organization Address [facility] Phone Number INTERFACE SYSTEM Refer to clinic/hospital department * (ABNORMAL) POC GLUCOSE (01/08/2006 5:25 PM CDT) GLUCOSE POC 125(H) 65 - 109 mg/dL INTERFACE SYSTEM 01/08/2006 5:25 PM CDT José Fine MD POINT OF CARE TESTING Final Result Performing Organization Address [facility] Phone Number INTERFACE SYSTEM Refer to clinic/hospital department * (ABNORMAL) POC GLUCOSE (01/08/2006 11:50 AM CDT) GLUCOSE POC 122(H) 65 - 109 mg/dL INTERFACE SYSTEM 01/08/2006 11:5 0 AM CDT us José Fine MD POINT OF CARE TESTING Final Result Performing Organization Address [facility] Phone Number INTERFACE SYSTEM Refer to clinic/hospital department * (ABNORMAL) POC GLUCOSE (01/08/2006 5:35 AM CDT) GLUCOSE POC 128(H) 65 - 109 mg/dL INTERFACE SYSTEM 01/08/2006 5:35 AM CDT us José Fine MD POINT OF CARE TESTING Final Result Performing Organization Address [facility] Phone Number INTERFACE SYSTEM Refer to clinic/hospital department * (ABNORMAL) POC GLUCOSE (01/07/2006 8:48 PM CDT) GLUCOSE POC 124(H) 65 - 109 mg/dL INTERFACE SYSTEM 01/07/2006 8:48 PM CDT us José Fine MD POINT OF CARE TESTING Final Result Performing Organization Address [facility] Phone Number INTERFACE SYSTEM Refer to clinic/hospital department * (ABNORMAL) POC GLUCOSE (01/07/2006 4:51 PM CDT) GLUCOSE POC 121(H) 65 - 109 mg/dL INTERFACE SYSTEM 01/07/2006 4:51 PM CDT us José Fine MD POINT OF CARE TESTING Final Result Performing Organization Address [facility] Phone Number INTERFACE SYSTEM Refer to clinic/hospital department * (ABNORMAL) POC GLUCOSE (01/07/2006 11:16 AM CDT) GLUCOSE POC 119(H) 65 - 109 mg/dL INTERFACE SYSTEM 01/07/2006 11:1 6 AM CDT us José Fine MD POINT OF CARE TESTING Final Result Performing Organization Address [facility] de Phone Number INTERFACE SYSTEM Refer to clinic/hospital department * (ABNORMAL) POC GLUCOSE (01/07/2006 6:24 AM CDT) GLUCOSE POC 114(H) 65 - 109 mg/dL INTERFACE SYSTEM 01/07/2006 6:24 AM CDT us José Fine MD POINT OF CARE TESTING Final Result Performing Organization Address [facility] de Phone Number INTERFACE SYSTEM Refer [...] ORDERABLES Final Resu lt Performing Organization Address [facility] de Phone Number INTERFACE SYSTEM Refer [...] ORDERABLES Final Resu lt Performing Organization Address [facility] de Phone Number INTERFACE SYSTEM Refer to clinic/hospital department * PHOSPHORUS (01/07/2006 5:30 AM CDT) PHOSPHORUS 3.1 2.5 - 4.5 mg/dL INTERFACE SYSTEM 01/07/2006 5:30 AM CDT Terry Cole MD CHEMISTRY ORDERABLES Final Resul t Performing Organization Address [facility] Phone Number INTERFACE SYSTEM Refer to clinic/hospital department * MAGNESIUM LEVEL (01/07/2006 5:30 AM CDT) MAGNESIUM 2.3 1.5 - 2.5 mg/dL INTERFACE SYSTEM 01/07/2006 5:30 AM CDT Terry Cole MD CHEMISTRY ORDERABLES Final Resul t Performing Organization Address [facility] Phone Number INTERFACE SYSTEM [...] ORDERABLES Final Resul t Performing Organization Address City/[facility] de Phone Number INTERFACE SYSTEM Refer to clinic/hospital department * (ABNORMAL) POC GLUCOSE (01/07/2006 12:49 AM CDT) GLUCOSE POC 114(H) 65 - 109 mg/dL INTERFACE SYSTEM 01/07/2006 12:4 9 AM CDT us José Fine MD POINT OF CARE TESTING Final Result Performing Organization Address City/[facility] Co de Phone Number INTERFACE SYSTEM Refer to clinic/hospital department * (ABNORMAL) POC GLUCOSE (01/06/2006 5:40 PM CDT) COMMENT, GLU POC Notified RN INTERFACE SYSTEM GLUCOSE POC 128(H) 65 - 109 mg/dL INTERFACE SYSTEM 01/06/2006 5:40 PM CDT us José Fine MD POINT OF CARE TESTING Final Result Performing Organization Address [facility] Phone Number INTERFACE SYSTEM Refer to clinic/hospital department * (ABNORMAL) POC GLUCOSE (01/06/2006 11:43 AM CDT) COMMENT, GLU POC Notified RN INTERFACE SYSTEM GLUCOSE POC 120(H) 65 - 109 mg/dL INTERFACE SYSTEM 01/06/2006 11:4 3 AM CDT us José Fine MD POINT OF CARE TESTING Final Result Performing Organization Address [facility] de Phone Number INTERFACE SYSTEM Refer to clinic/hospital department * (ABNORMAL) POC GLUCOSE (01/06/2006 5:48 AM CDT) GLUCOSE POC 120(H) 65 - 109 mg/dL INTERFACE SYSTEM 01/06/2006 5:48 AM CDT us José Fine MD POINT OF CARE TESTING Final Result Performing Organization Address City/[facility] Co de Phone Number INTERFACE [...] ORDERABLES Final Resu lt Performing Organization Address City/[facility]/ZIP Co de Phone Number INTERFACE SYSTEM [...] ORDERABLES Final Resul t Performing Organization Address [facility] de Phone Number INTERFACE SYSTEM Refer [...] ORDERABLES Final Resul t Performing Organization Address City/[facility]/ZIP Co de Phone Number INTERFACE SYSTEM Refer to clinic/hospital department * (ABNORMAL) POC GLUCOSE (01/06/2006 1:00 AM CDT) GLUCOSE POC 142(H) 65 - 109 mg/dL INTERFACE SYSTEM 01/06/2006 1:00 AM CDT José Fine MD POINT OF CARE TESTING Final Result Performing Organization Address [facility] Phone Number INTERFACE SYSTEM Refer to clinic/hospital department * (ABNORMAL) POC GLUCOSE (01/05/2006 5:49 PM CDT) GLUCOSE POC 137(H) 65 - 109 mg/dL INTERFACE SYSTEM 01/05/2006 5:49 PM CDT José Fine MD POINT OF CARE TESTING Final Result Performing Organization Address [facility] Phone Number INTERFACE SYSTEM Refer to clinic/hospital department * (ABNORMAL) POC GLUCOSE (01/05/2006 11:57 AM CDT) GLUCOSE POC 133(H) 65 - 109 mg/dL INTERFACE SYSTEM 01/05/2006 11:5 7 AM CDT José Fine MD POINT OF CARE TESTING Final Result Performing Organization Address [facility] Phone Number INTERFACE SYSTEM Refer to clinic/hospital department * (ABNORMAL) POC GLUCOSE (01/05/2006 5:59 AM CDT) GLUCOSE POC 142(H) 65 - 109 mg/dL INTERFACE SYSTEM 01/05/2006 5:59 AM CDT José Fine MD POINT OF CARE TESTING Final Result Performing Organization Address [facility] Phone Number INTERFACE SYSTEM [...] K/uL INTERFACE SYSTEM 01/05/2006 4:00 AM CDT [facility] HEMATOLOGY ORDERABLES Final Result Performing Organization Address [facility] Phone Number INTERFACE SYSTEM [...] fL INTERFACE SYSTEM 01/05/2006 4:00 AM CDT [employer] HEMATOLOGY ORDERABLES Final Result Performing Organization Address [facility] Phone Number INTERFACE SYSTEM [...] patients with mechanical heart valves or post CT. Pediatric (12 years and under): 1.5 - [...] for unfractionated heparin 01/05/2006 4:00 AM CDT [employer] [facility] HEMATOLOGY ORDERABLES Final Result Performing Organization Address [facility] Phone Number INTERFACE SYSTEM Refer to clinic/hospital department * PHOSPHORUS (01/05/2006 4:00 AM CDT) PHOSPHORUS 2.9 2.5 - 4.5 mg/dL INTERFACE SYSTEM 01/05/2006 4:00 AM CDT Luis Eduardo [employer] CHEMISTRY ORDERABLES Final R esult Performing Organization Address [facility] Phone Number INTERFACE SYSTEM Refer to clinic/hospital department * MAGNESIUM LEVEL (01/05/2006 4:00 AM CDT) MAGNESIUM 2.2 1.5 - 2.5 mg/dL INTERFACE SYSTEM 01/05/2006 4:00 AM CDT [employer] [facility] CHEMISTRY ORDERABLES Final R esult Performing Organization Address [facility] Phone Number INTERFACE SYSTEM [...] Final R esult Performing Organization Address [facility] Phone Number INTERFACE SYSTEM Refer to clinic/hospital department * (ABNORMAL) POC GLUCOSE (01/04/2006 11:41 PM CDT) GLUCOSE POC 140(H) 65 - 109 mg/dL INTERFACE SYSTEM 01/04/2006 11:4 1 PM CDT us José Fine MD POINT OF CARE TESTING Final Result Performing Organization Address [facility] Phone Number INTERFACE SYSTEM Refer to clinic/hospital department * (ABNORMAL) POC GLUCOSE (01/04/2006 5:43 PM CDT) GLUCOSE POC 156(H) 65 - 109 mg/dL INTERFACE SYSTEM 01/04/2006 5:43 PM CDT us José Fine MD POINT OF CARE TESTING Final Result Performing Organization Address [facility] Phone Number INTERFACE SYSTEM Refer to clinic/hospital department * (ABNORMAL) POC GLUCOSE (01/04/2006 11:37 AM CDT) GLUCOSE POC 175(H) 65 - 109 mg/dL INTERFACE SYSTEM 01/04/2006 11:3 7 AM CDT us José Fine MD POINT OF CARE TESTING Final Result Performing Organization Address [facility] Phone Number INTERFACE SYSTEM Refer to clinic/hospital department * (ABNORMAL) POC GLUCOSE (01/04/2006 6:11 AM CDT) GLUCOSE POC 183(H) 65 - 109 mg/dL INTERFACE SYSTEM 01/04/2006 6:11 AM CDT José Fine MD POINT OF CARE TESTING Final Result Performing Organization Address [facility] Phone Number INTERFACE SYSTEM [...] ORDERABLES F inal Result Performing Organization Address [facility] Phone Number INTERFACE SYSTEM [...] patients with mechanical heart valves or post CT. Pediatric (12 years and under): 1.5 - [...] ORDERABLES F inal Result Performing Organization Address [facility] Phone Number INTERFACE SYSTEM Refer to clinic/hospital department * PHOSPHORUS (01/04/2006 4:20 AM CDT) PHOSPHORUS 2.5 2.5 - 4.5 mg/dL INTERFACE SYSTEM 01/04/2006 4:20 AM CDT us Rayray Wilcox MD CHEMISTRY ORDERABLES Fi nal Result Performing Organization Address [facility] Phone Number INTERFACE SYSTEM Refer to clinic/hospital department * MAGNESIUM LEVEL (01/04/2006 4:20 AM CDT) MAGNESIUM 2.0 1.5 - 2.5 mg/dL INTERFACE SYSTEM 01/04/2006 4:20 AM CDT Rayray Wilcox MD CHEMISTRY ORDERABLES Fi nal Result Performing Organization Address [facility] Phone Number INTERFACE SYSTEM Refer [...] ORDERABLES Final Re sult Performing Organization Address [facility]/ZIP Co de Phone Number INTERFACE SYSTEM Refer to clinic/hospital department * (ABNORMAL) POC GLUCOSE (01/04/2006 12:25 AM CDT) GLUCOSE POC 188(H) 65 - 109 mg/dL INTERFACE SYSTEM 01/04/2006 12:2 5 AM CDT José Fine MD POINT OF CARE TESTING Final Result Performing Organization Address [facility] de Phone Number INTERFACE SYSTEM Refer to clinic/hospital department * (ABNORMAL) POC GLUCOSE (01/03/2006 5:25 PM CDT) GLUCOSE POC 177(H) 65 - 109 mg/dL INTERFACE SYSTEM 01/03/2006 5:25 PM CDT José Fine MD POINT OF CARE TESTING Final Result Performing Organization Address [facility] de Phone Number INTERFACE SYSTEM Refer to clinic/hospital department * (ABNORMAL) POC GLUCOSE (01/03/2006 11:34 AM CDT) GLUCOSE POC 148(H) 65 - 109 mg/dL INTERFACE SYSTEM 01/03/2006 11:3 4 AM CDT José Fine MD POINT OF CARE TESTING Final Result Performing Organization Address [facility] de Phone Number INTERFACE SYSTEM Refer [...] ORDERABLES F inal Result Performing Organization Address [facility] Phone Number INTERFACE SYSTEM [...] ORDERABLES F inal Result Performing Organization Address [facility] Phone Number INTERFACE SYSTEM [...] ORDERABLES F inal Result Performing Organization Address [facility] Phone Number INTERFACE SYSTEM [...] patients with mechanical heart valves or post CT. Pediatric (12 years and under): 1.5 - [...] ORDERABLES F inal Result Performing Organization Address [facility] Number INTERFACE SYSTEM Refer to clinic/hospital department * PHOSPHORUS (01/03/2006 10:46 AM CDT) PHOSPHORUS 3.3 2.5 - 4.5 mg/dL INTERFACE SYSTEM 01/03/2006 10:4 6 AM CDT Rayray Wilcox MD CHEMISTRY ORDERABLES Fi nal Result Performing Organization Address [facility] Phone Number INTERFACE SYSTEM Refer to clinic/hospital department * MAGNESIUM LEVEL (01/03/2006 10:46 AM CDT) MAGNESIUM 1.8 1.5 - 2.5 mg/dL INTERFACE SYSTEM 01/03/2006 10:4 6 AM CDT Rayray Wilcox MD CHEMISTRY ORDERABLES Fi nal Result Performing Organization Address [facility] Phone Number INTERFACE SYSTEM [...] CHEMISTRY ORDERABLES nal Result Performing Organization Address [facility] Phone Number INTERFACE SYSTEM [...] patients with mechanical heart valves or post CT. Pediatric (12 years and under): 1.5 - [...] drugs of abuse are available on the [facility] Intranet at: [email or web address] Select: Drugs of Abuse ? [facility] To inquire about any potential [...] URINE ORDERABLES Final Result Performing Organization Address City/[facility]/ZIP Co de Phone Number INTERFACE SYSTEM [...]
--- OUTSIDE RECORDS SUMMARY | 2025-04-30 17:13 | XMS_ITS | Clinical Summary ---
Author Organization [facility] Address [address] [place] [address] Care Team Providers Care Film Casting Operator Name Role Phone Unavailable Primary Care [...] daily. 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 Baclofen pump rx'd by the [facility]. 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
--- OUTSIDE RECORDS SUMMARY | 2025-04-30 17:13 | XMS_ITS | Encounter Summary ---
Author Organization [facility] Address [address] [place] [address] Care Team Providers Care Cone Machine Operator Name Role Phone Unavailable Primary Care Provider Unavailabl e Encounter Details Date Type Department Care Team (Late st Contact Info) Description 01/10/2006 Outpatient Historical [facility] Trauma and General Surgery [address] [facility] [address] [phone] [place] [address] [place] [address] Social History Tobacco Use Types Packs/Day Years Used Date Smoking Tobacco: Never Assessed Sex and Gender Information Value Date Recorded Sex Assigned at Not on file 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
--- OUTSIDE RECORDS SUMMARY | 2025-04-30 17:13 | XMS_ITS | Encounter Summary ---
Author Organization [facility] Address [address] [place] [address] Care Team Providers Care Spinning Bath Person Name Role Phone Unavailable Primary Care Provider Unavailabl e Encounter Details Date Type Department Care Team (Late st Contact Info) Description 01/04/2006 Outpatient Historical [facility] Trauma and General Surgery [address] [facility] [place] [address] Jayden James MD 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
--- OUTSIDE RECORDS SUMMARY | 2025-04-30 17:13 | XMS_ITS | Encounter Summary ---
Author Organization [facility] Address [address] [place] [address] Care Team Providers Care Ocularist Name Role Phone Unavailable Primary Care Provider Unavailabl e Encounter Details Date Type Department Care Team (Late st Contact Info) Description 01/11/2006 Outpatient Historical [facility] Trauma and General Surgery [address] 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
--- OUTSIDE RECORDS SUMMARY | 2025-04-30 17:13 | XMS_ITS | Encounter Summary ---
Author Organization [facility] Address 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
--- OUTSIDE RECORDS SUMMARY | 2025-04-30 17:13 | XMS_ITS | Encounter Summary ---
Author Organization [facility] Address [address] [place] [address] Care Team Providers Care Stationary Engineer Refrigeration Name Role Phone Unavailable Primary Care Provider Unavailabl e Encounter Details Date Type Department Care Team (Late st Contact Info) Description 01/08/2006 Outpatient Historical [facility] Trauma and General Surgery [address] [place] [address] Jayden James MD [address] [facility] [address] [place] [address] Social History Tobacco Use Types Packs/Day Years Used Date Smoking Tobacco: Never Assessed Sex and Gender Information Value Date Recorded Sex Assigned at Not on file 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
== END 2025-04-30 16:48 ==
PROVIDERS: Emergency Provider Emergency Medicine
DX: N48.89 Other specified disorders of penis (principal); G82.54 Quadriplegia, C5-C7 incomplete; S14.155S Other incomplete lesion at C5 level of cervical spinal cord, sequela; G93.41 Metabolic encephalopathy; G89.4 Chronic pain syndrome; I69.998 Other sequelae following unspecified cerebrovascular disease; H53.8 Other visual disturbances; I10 Essential (primary) hypertension; N31.9 Neuromuscular dysfunction of bladder, unspecified; F32.A Depression, unspecified; Z96.0 Presence of urogenital implants; Z86.16 Personal history of COVID-19; Z86.718 Personal history of other venous thrombosis and embolism; Z87.891 Personal history of nicotine dependence; V29.99XS Rider (driver) (passenger) of other motorcycle injured in unspecified traffic accident, sequela
CPT/HCPCS: 99282

== ENCOUNTER 2025-05-16 10:47 | Observation (INO) | payer MEDICARE, MEDICAID, OTHER, SELFPAY ==
[2025-05-16] VITALS (42 sets, daily range): BP systolic 104–147; BP diastolic 56–96; PULSE 66–102; RESP 10–30; TEMP 36.4–36.8; O2SAT 95–98; BMI 18.1
--- NOTE | ~2025-05-16 | CT_ITS ---
EXAMINATION: CTA BRAIN/CAROTID DATE: 05/16/2025 12:46 INDICATION: Right arm weakness TECHNIQUE: Computed tomographic angiography (CTA) of the head and neck was performed with 100 mL Omnipaque-350 intravenous contrast. Multiplanar reconstructions and maximum intensity projection 3D-reconstructions of the carotid arteries and of the intracranial arteries were created by the technologist on a separate workstation. Automated exposure control and iterative reconstruction technique were employed.The dose-length product was 1216.40 mGy-cm. COMPARISON: Head CT dated 05/16/[address] brain and carotid angiogram dated 07/05/2024 FINDINGS: Intracranial arteries The extracranial vertebral arteries appear codominant with the right vertebral artery bifurcating at the level of the foramen magnum with a right posterior inferior cerebellar artery which appears to also supply the vascular distribution of the inferior left cerebellar hemisphere with no discernible left posterior inferior cerebellar artery. The more distal intracranial right vertebral artery is diminutive with the left vertebral artery supplying the majority of flow to the basilar artery. There is nonhemodynamically significant atherosclerotic plaque at the bilateral carotid siphons. There is no he modynamically significant stenosis in the vertebral, basilar and internal carotid arteries. Both A1 and P1 segments are patent. There are also patent bilateral posterior communicating arteries. There are no aneurysms identified. Cerebral arterial arborization appears symmetric. No abnormally enhancing brain lesions identified. Carotid arteries: The aortic arch and the great vessels arising from the arch are normal in caliber with no dissection or hemodynamically significant stenosis. There is small amount of atherosclerotic plaque with 0% stenosis of the right and left carotid bulbs relative to normal distal artery lumen diameter (NASCET criteria). Mild emphysema and mild biapical pleural-parenchymal scarring. Cervical soft tissues are unremarkable. Moderate cervical and upper thoracic spondylosis. IMPRESSION: 1. Small amount of atherosclerotic plaque with 0% stenosis of the right left carotid bulbs relative to normal distal artery lumen diameter (NASCET criteria). 2. No hemodynamically significant stenosis, thrombus or aneurysm of the intracranial arteries. Reviewed, dictated and finalized at location A. ANALYST IMPRESSION: 1. Small amount of atherosclerotic plaque with 0% stenosis of the right left ca rotid bulbs relative to normal distal artery lumen diameter (NASCET criteria). 2. No hemodynamically significant stenosis, thrombus or aneurysm of the intracr anial arteries.
--- NOTE | ~2025-05-16 | CT_ITS ---
EXAMINATION: CT brain wo con DATE: 05/16/2025 11:23 INDICATION: Right arm weakness TECHNIQUE: Computed tomography (CT) of the head was performed without intravenous contrast. The dose-length product was 832.33 mGy-cm. COMPARISON: October 07, 2024 FINDINGS: Exam limited by canting of the patient's head within the CT gantry and motion artifact. No large acute ischemic event seen. No mass, mass effect or bleed. Old left occipital infarction. Calvarial structures appear intact. IMPRESSION: 1. No intracranial mass effect or hemorrhage identified. 2. No large acute ischemic event seen. Reviewed, dictated and finalized at location A. [employer]
--- NOTE | ~2025-05-16 | XR_ITS ---
Examination: XR chest 1V portable Clinical History: weakness Comparison: 11/04/2024 Technique: Portable AP Findings: Left PICC. Cardiomegaly. Right basilar atelectasis. No acute bony abnormality. IMPRESSION: 1. No significant acute cardiopulmonary findings given portable technique. Reviewed, dictated and finalized at location R. NCE [employer]URN[employer]ER
--- NOTE | 2025-05-16 11:03 | ECG_ITS ---
Test Date: 2025-05-16 11:35:49 Measurements Intervals [place] Rate: 74 P: -17 AK: 353 QRS: 28 QRSD: 109 T: 32 QT: 370 QTc: 412 Interpretive Statements SIGNIFICANT BASELINE ARTIFACT PRECLUDES ACCURATE INTERPRETATION Electronically Signed On 05-16-2025 13:23:28 SYSTEM VALIDATION ENGINEER by Arnoldo [place] M.D.
[2025-05-16 11:51] LABS: Hematocrit 28.3 % (42.0-52.0); Hemoglobin 8.3 g/dL (14.0-18.0); Immature Granulocyte Percent A 0.6 % (0-0.5); Lymphocytes Absolute Auto 0.77 K/mm3 (0.9-3.2); Mean Corpuscular HGB Conc 29.3 g/dl (32-36); Mean Corpuscular Hemoglobin 26.5 pg (26-34); Mean Corpuscular Volume 90.4 fl (80-100); Nucleated Red Blood Cells Absolute Auto 0.000 K/mm3 (0.0-0.012); Nucleated Red Blood Cells Perc 0.0 % (0.0-0.2); Platelet Count Result 299 k/mm3 (150-375); Red Blood Count 3.13 M/mm3 (4.6-6.20); White Blood Count 9.0 K/mm3 (4.5-10.0)
[2025-05-16 12:01] LABS: INR 1.4; Prothrombin Time 16.7 Seconds (11.1-14.7)
[2025-05-16 12:02] LABS: Partial Thromboplastin Time 35.3 Seconds (22.3-36.8)
[2025-05-16 12:11] LABS: Alanine Aminotransferase 17 U/L (6-50); Albumin Level 3.2 g/dL (3.5-5.1); Alkaline Phosphatase 79 U/L (38-126); Anion Gap 4 mmol/L (4-12); Aspartate Amino Transferase 32 U/L (17-59); Bilirubin,Total 0.3 mg/dL (0.2-1.3); Blood Urea Nitrogen 25 mg/dL (9-20); Calcium 8.1 mg/dL (8.4-10.2); Carbon Dioxide 29 mmol/L (22-30); Chloride 104 mmol/L (98-107); Estimated CRCL calculation 65 ml/min; Estimated Glomerular Filt Rate > 60; Glucose 113 mg/dL (65-110); Potassium 4.1 mmol/L (3.4-5.0); Schistocytes None Seen; Sodium 137 mmol/L (137-145); Total Protein 6.4 g/dL (6.3-8.2)
[2025-05-16 12:12] LABS: Anisocytosis 1+; Crenated RBC Occasional; Hypochromasia 1+
[2025-05-16 12:16] LABS: Troponin I 0.418 ng/mL (0.000-0.034)
--- OUTSIDE RECORDS SUMMARY | 2025-05-16 12:16 | XMS_ITS | Encounter Summary ---
Author Organization [facility] Address 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
--- OUTSIDE RECORDS SUMMARY | 2025-05-16 12:16 | XMS_ITS | Encounter Summary ---
Author Organization [facility] Address [address] [place] [address] Care Team Providers Care Solar Field Service Technician Name Role Phone Unavailable Primary Care Provider Unavailabl e Encounter Details Date Type Department Care Team (Late st Contact Info) Description 01/08/2006 Outpatient Historical [facility] [address] [facility] [address] [facility] [place] [address] Jayden James MD [address] [facility] [facility] [place] [address] Social History Tobacco Use Types Packs/Day Years Used Date Smoking Tobacco: Never Assessed Sex and Gender Information Value Date Recorded Sex Assigned at Not on file Legal 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
--- OUTSIDE RECORDS SUMMARY | 2025-05-16 12:16 | XMS_ITS | Encounter Summary ---
Author Organization [email or web address] Address 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 [...] sult Performing Organization Address [facility] [...] fL INTERFACE SYSTEM 03/14/2006 4:37 AM CDT [facility]AB[facility] Final Re sult Performing Organization Address [facility] Phone Number INTERFACE SYSTEM Refer to clinic/hospital department * MAGNESIUM LEVEL (03/14/2006 4:37 AM CDT) MAGNESIUM 2.0 1.5 - 2.5 mg/dL INTERFACE SYSTEM 03/14/2006 4:37 AM CDT Rita Esqueda MD CHEMISTRY ORDERABLES Final Res ult Performing Organization Address [facility] Phone Number INTERFACE SYSTEM Refer [...] mmol/L INTERFACE SYSTEM 03/14/2006 4:37 AM CDT [facility]MI[facility] ORDERABLES Final Res ult Performing Organization Address [facility] Phone Number INTERFACE SYSTEM Refer to clinic/hospital department * (ABNORMAL) C-REACTIVE PROTEIN (03/14/2006 4:37 AM CDT) CRP 4.1(H) 0.0 - 0.8 mg/dL INTERFACE SYSTEM 03/14/2006 4:37 AM CDT [facility] CHEMISTRY ORDERABLES Final Res ult Performing Organization Address [facility] Phone Number INTERFACE SYSTEM Refer to clinic/hospital department * VANCOMYCIN LEVEL TROUGH (03/13/2006 1:02 PM CDT) VANCOMYCIN, TROUGH 8.7 5.0 - 15.0 ug/mL INTERFACE SYSTEM Comment: Vancomycin Trough Toxic Level= >15.0 ug/mL 03/13/2006 1:02 PM CDT [facility] CHEMI[facility]Y ORDERABLES Final Res ult Performing Organization Address [facility] Phone Number INTERFACE SYSTEM Refer [...] esult Performing Organization Address [facility] [...] AND STOOLS Final Result Performing Organization Address [facility] Phone Number INTERFACE SYSTEM Refer [...] AND STOOLS Final Result Performing Organization Address [facility] Phone Number INTERFACE SYSTEM Refer to clinic/hospital department * (ABNORMAL) TOTAL PROTEIN, CSF (03/12/2006 3:10 PM CDT) PROTEIN, CSF 365(H) 15 - 45 mg/dL INTERFACE SYSTEM Comment: New CSF Protein Quantitative Methodology - Note New Reference Range. bloody sample 03/12/2006 3:10 PM CDT Aman Gottlieb DO BODY FLUIDS AND STOOLS Final Result Performing Organization Address [facility] Phone Number INTERFACE SYSTEM Refer [...] PM and read back verified. RBC, CSF 743996(H) <=0 /uL INTERFACE SYSTEM 03/12/2006 3:10 PM CDT us Aman Gottlieb DO BODY FLUIDS AND STOOLS Final Result Performing Organization Address [facility] de Phone Number INTERFACE SYSTEM [...] Result Performing Organization Address [facility] de Phone Number INTERFACE SYSTEM [...] Result Performing Organization Address [facility] [...] esult Performing Organization Address [facility] de Phone Number INTERFACE SYSTEM [...] Organization Address [place]/[facility] de Phone Number INTERFACE SYSTEM [...] Organization Address [facility] Co de Phone Number INTERFACE SYSTEM Refer to clinic/hospital department * (ABNORMAL) C-REACTIVE PROTEIN (03/11/2006 4:40 AM CDT) CRP 6.5(H) 0.0 - 0.8 mg/dL INTERFACE SYSTEM 03/11/2006 4:40 AM CDT Sushil Arroyo MD CHEMISTRY ORDERABLES Final R [facility] Performing Organization Address [facility] [...] Sushil Arroyo MD CHEMISTRY ORDERABLES Final [facility] [place] Performing Organization Address [facility] [...] patients with mechanical heart valves or post NV. Pediatric (12 years and under): 1.5 - [...] Result Performing Organization Address [facility] [...] t Performing Organization Address [facility] de Phone Number INTERFACE SYSTEM [...] Organization Address City/[facility] de Phone Number INTERFACE SYSTEM [...] patients with mechanical heart valves or post NV. Pediatric (12 years and under): 1.5 - [...] Result Performing Organization Address [facility] de Phone Number INTERFACE SYSTEM [...] patients with mechanical heart valves or post NV. Pediatric (12 years and under): 1.5 - [...] Organization Address [place]/[facility] de Phone Number INTERFACE SYSTEM [...] ult Performing Organization Address [facility] [...] ult Performing Organization Address [facility] Phone Number INTERFACE SYSTEM Refer to clinic/hospital department * (ABNORMAL) C-REACTIVE PROTEIN (03/08/2006 6:34 PM CDT) CRP 5.2(H) 0.0 - 0.8 mg/dL INTERFACE SYSTEM 03/08/2006 6:34 PM CDT us Keenan Mandujano MD CHEMISTRY ORDERABLES Final Resu lt Performing Organization Address [facility] Co ms Phone Number INTERFACE SYSTEM Refer to clinic/hospital [...] URINE ORDERABLES Final Result Performing Organization Address [facility] [...] patients with mechanical heart valves or post NV. Pediatric (12 years and under): 1.5 - [...] Result Performing Organization Address [facility] [...] t Performing Organization Address [facility] [...] Result Performing Organization Address [facility] [...] Organization Address [place]/[facility] de Phone Number INTERFACE SYSTEM [...] Organization Address [place]/[facility] de Phone Number INTERFACE SYSTEM [...] patients with mechanical heart valves or post NV. Pediatric (12 years and under): 1.5 - [...] Result Performing Organization Address [facility] [...] URINE ORDERABLES Final Result Performing Organization Address [facility] [...] Result Performing Organization Address [facility] [...] Result Performing Organization Address [facility] [...] esult Performing Organization Address [facility] de Phone Number INTERFACE SYSTEM [...] Result Performing Organization Address [facility] [...] Organization Address [facility] Co de Phone Number [...] INTERFACE SYSTEM 02/26/2006 12:4 4 PM CDT [facility] HEMATOLOGY ORDERABLES Final Re sult Performing Organization Address [facility] de Phone Number INTERFACE SYSTEM Refer to clinic/hospital department * C-REACTIVE PROTEIN (02/26/2006 12:44 PM CDT) CRP 0.2 0.0 - 0.8 mg/dL INTERFACE SYSTEM 02/26/2006 12:4 4 PM CD[facility] CHEMISTRY ORDERABLES Final Res ult Performing Organization Address [facility] de Phone Number INTERFACE SYSTEM [...] ult Performing Organization Address [facility] [...] t Performing Organization Address [facility] [...] K/uL INTERFACE SYSTEM 02/25/2006 4:36 AM CDT [facility] HEMATOLOGY ORDERABLES Final Re sult Performing Organization Address [facility] de Phone Number INTERFACE SYSTEM [...] fL INTERFACE SYSTEM 02/25/2006 4:36 AM CDT [facility] HEMATOLOGY ORDERABLES Final Re sult Performing Organization Address [facility] [...] SYSTEM 02/25/2006 4:36 AM CDT [facility] CHEMISTRY ORDERABLES Final Res ult Performing Organization Address [facility] Phone Number INTERFACE SYSTEM Refer to clinic/hospital department * C-REACTIVE PROTEIN (02/25/2006 4:36 AM CDT) CRP 0.2 0.0 - 0.8 mg/dL INTERFACE SYSTEM 02/25/2006 4:36 AM CDT [facility] CHEMISTRY ORDERABLES Final Res ult Performing Organization Address [facility] [...] URINE ORDERABLES Final Result Performing Organization Address [facility] [...] patients with mechanical heart valves or post [place]. Pediatric (12 years and under): 1.5 - [...] patients with mechanical heart valves or post [place]. Pediatric (12 years and under): 1.5 - [...] Result Performing Organization Address [facility] Phone Number INTERFACE SYSTEM Refer to [...] patients with mechanical heart valves or post NV. Pediatric (12 years and under): 1.5 - [...] Result Performing Organization Address [facility] [...] t Performing Organization Address [facility] [...] patients with mechanical heart valves or post NV. Pediatric (12 years and under): 1.5 - [...] Organization Address [place]/[facility] [...] patients with mechanical heart valves or post NV. Pediatric (12 years and under): 1.5 - [...] Result Performing Organization Address [facility] de Phone Number INTERFACE SYSTEM [...] t Performing Organization Address [facility] de Phone Number INTERFACE SYSTEM [...] patients with mechanical heart valves or post NV. Pediatric (12 years and under): 1.5 - [...] ult Performing Organization Address [facility] Phone Number INTERFACE SYSTEM Refer to [...] patients with mechanical heart valves or post NV. Pediatric (12 years and under): 1.5 - [...] ult Performing Organization Address [facility] [...] patients with mechanical heart valves or post NV. Pediatric (12 years and under): 1.5 - [...] Result Performing Organization Address [facility] de Phone Number INTERFACE SYSTEM [...] ult Performing Organization Address [facility] Co de Phone Number [...] Organization Address City/[facility] Co de Phone Number [...] patients with mechanical heart valves or post NV. Pediatric (12 years and under): 1.5 - [...] Organization Address [place]/[facility]/ZIP Co de Phone Number INTERFACE SYSTEM Refer [...] t Performing Organization Address [facility] [...] Result Performing Organization Address [facility] [...] Result Performing Organization Address [facility] de Phone Number INTERFACE SYSTEM [...] Organization Address [place]/[facility]/ZIP Co de Phone Number INTERFACE SYSTEM Refer [...] patients with mechanical heart valves or post NV. Pediatric (12 years and under): 1.5 - [...] patients with mechanical heart valves or post NV. Pediatric (12 years and under): 1.5 - [...] Organization Address [place]/[facility] de Phone Number INTERFACE SYSTEM [...] ult Performing Organization Address [facility] de Phone Number INTERFACE SYSTEM [...] ult Performing Organization Address [facility] de Phone Number INTERFACE SYSTEM [...] patients with mechanical heart valves or post NV. Pediatric (12 years and under): 1.5 - [...] ult Performing Organization Address [facility] [...] patients with mechanical heart valves or post NV. Pediatric (12 years and under): 1.5 - [...] ORDERABLES Final Res t Performing Organization Address [facility] [...] patients with mechanical heart valves or post NV. Pediatric (12 years and under): 1.5 - 3.0 Although the target range in children is not well established , INR values of 1.5 - 3.0 are recommended for most patients. Higher values have been used in children with prosthetic cardiac valves and hereditary clotting disorders. (<3 days) therapeutic ranges have not been established. 01/28/2006 4:52 AM CDT Result [facility] Keenan Mandujano MD HEMATOLOGY ORDERABLES Final [facility] Performing Organization Address [facility] [...] patients with mechanical heart valves or post NV. Pediatric (12 years and under): 1.5 - [...] ult Performing Organization Address [facility] [...] patients with mechanical heart valves or post NV. Pediatric (12 years and under): 1.5 - [...] ult Performing Organization Address [facility] [...] patients with mechanical heart valves or post NV. Pediatric (12 years and under): 1.5 - [...] ult Performing Organization Address [facility] Phone Number INTERFACE SYSTEM Refer to [...] patients with mechanical heart valves or post NV. Pediatric (12 years and under): 1.5 - 3.0 Although the target range in children is not well established , INR values of 1.5 - 3.0 are recommended for most patients. Higher values have been used in children with prosthetic cardiac valves and hereditary clotting disorders. (<3 days) therapeutic ranges have not been established. 01/23/2006 4:57 AM CDT Result [facility] Keenan Mandujano MD HEMATOLOGY ORDERABLES Final Res ult Performing Organization Address [facility] [...] patients with mechanical heart valves or post NV. Pediatric (12 years and under): 1.5 - [...] ult Performing Organization Address [facility] [...] lt Performing Organization Address [facility] [...] patients with mechanical heart valves or post NV. Pediatric (12 years and under): 1.5 - [...] ult Performing Organization Address [facility] [...] patients with mechanical heart valves or post [place]. Pediatric (12 years and under): 1.5 - [...] lt Performing Organization Address [facility] [...] patients with mechanical heart valves or post [place]. Pediatric (12 years and under): 1.5 - [...] Organization Address [place]/[facility] Co de Phone Number [...] patients with mechanical heart valves or post [place]. Pediatric (12 years and under): 1.5 - [...] Organization Address [place]/[facility] Co de Phone Number [...] Organization Address [facility] Co de Phone Number [...] Organization Address [place]/[facility]/ZIP Co de Phone Number INTERFACE SYSTEM Refer to clinic/hospital department documented in this encounter Visit Diagnoses Diagnosis Other specified rehabilitation procedure(V57.89)- Primary Other specified rehabilitation procedure documented in this encounter
--- OUTSIDE RECORDS SUMMARY | 2025-05-16 12:16 | XMS_ITS | Encounter Summary ---
Author Organization [employer] Address [address] [place] [address] Care Team Providers Care Mold Breaker Name Role Phone Unavailable Primary Care Provider Unavailabl e Encounter Details Date Type Department Care Team (Late st Contact Info) Description 01/13/2006 Outpatient Historical [facility] Support Serv. ([facility] Cardiology[facility]) [address] 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
--- OUTSIDE RECORDS SUMMARY | 2025-05-16 12:16 | XMS_ITS | Encounter Summary ---
Author Organization [facility] Address [address] [place] [address] Care Team Providers Care Rubber Compounder Mixer Name Role Phone Rod Strauss MD Primary Care Provider + [phone] Encounter Details Date Type Department Care Team (Late st Contact Info) Description 03/13/2025 Lab Requisition [facility] [address] [place] [address] Unknown, Provider Social History Tobacco Use Types [...] medical care, and heating? Patient declined 05/31/2024 [facility] - Occupational [...] time in the past 12 m [facility], were you homeless or living in a detention (including now)? 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 Answer Date of Assessment Author Yes 06/01/2024 12:21 PM CUSTOMER SERVICE DRIVER Princess Ohara RN * Is person blind or have serious difficulty seeing? Answer Date of Assessment Author No 06/01/2024 12:21 PM CUSTOMER SERVICE DRIVER Princess Ohara RN * Does person have serious difficulty walking/climbing stairs? Answer Date of Assessment Author Yes 06/01/2024 12:21 PM CUSTOMER SERVICE DRIVER Princess Ohara RN * Does person have difficulty dressing/bathing? Answer Date of Assessment Author Yes 06/01/2024 12:21 PM CUSTOMER SERVICE DRIVER Princess Ohara RN * Does person have difficulty doing errands alone? Answer Date of Assessment Author Yes 06/01/2024 12:21 PM CUSTOMER SERVICE DRIVER Princess Ohara RN documented as of this encounter Mental Status * Does person have difficulty concentrating/remembering/making decisions? Answer Entry Date Author No 06/01/2024 12:21 PM CUSTOMER SERVICE DRIVER Princess Ohara RN documented in this encounter Plan of Treatment Not on [...] - 74 % 03/13/2025 6:26 PM CDT [facility] Lymphocyte % 1(L) 17 - 47 % 03/13/2025 6:26 PM CDT [facility] Monocyte % 7 3 - 11 % 03/13/2025 6:26 PM CDT [facility] Neutrophil Absolute 14.08(H) 1.60 - 7.50 x10E9/L 03/13/2025 6:26 PM CDT [facility] Lymphocyte Absolute 0.15(L) 1.00 - 4.40 x10E9/L 03/13/2025 6:26 PM CDT [facility] Monocyte Absolute 1.07(H) 0.15 - 1.00 x10E9/L 03/13/2025 6:26 PM CDT [facility] RBC Morphology NORMAL 03/13/2025 6:26 PM CDT [facility] Blood BLOOD SPECIMEN / Unknown 03/13/2025 4:40 PM CDT 03/13/2025 5:42 PM CDT us Provider Unknown LAB - HEMATOLOGY ORDERABLES Fin al Result [facility] [address] [place] [address] * (ABNORMAL) COMPREHENSIVE METABOLIC PANEL (03/13/2025 4:40 PM CDT) Glucose 118(H) 70 - 99 mg/dL 03/13/2025 6:07 PM CDT [facility] Sodium 135(L) 136 - 145 mmol/L 03/13/2025 6:07 PM CDT [facility] Potassium 3.6 3.5 - 5.1 mmol/L 03/13/2025 6:07 PM [facility] Chloride 98 98 - 107 mmol/L 03/13/2025 6:07 PM [facility] CO2 27 22 - 29 mmol/L 03/13/2025 6:07 PM [facility] Calcium 7.7(L) 8.4 - 10.4 mg/dL 03/13/2025 6:07 PM [facility] Anion Gap 10 6 - 16 mmol/L 03/13/2025 6:07 PM [facility] BUN 23 7 - 26 mg/dL 03/13/2025 6:07 PM [facility] Creatinine 0.74 0.72 - 1.25 mg/dL 03/13/2025 6:07 PM [facility] Alkaline Phosphatase 94 40 - 150 U/L 03/13/2025 6:07 PM [facility] ALT 31 6 - 57 U/L 03/13/2025 6:07 PM [facility] AST 39 10 - 48 U/L 03/13/2025 6:07 PM [facility] Protein Total 5.6(L) 6.4 - 8.3 gm/dL 03/13/2025 6:07 PM [facility] Albumin 2.5(L) 3.1 - 4.5 gm/dL 03/13/2025 6:07 PM [facility] Bilirubin Total 0.5 0.2 - 1.2 mg/dL 03/13/2025 6:07 PM [facility] eGFR by CKD-EPI >90 >=90 mL/min/1.7 3 m2 03/13/2025 6:07 PM [facility] Comment:Estimated Glomerular Filtration Rate (eGFR) calculated using the CKD-EPI Creatinine Equation (2020), per the National Kidney Foundation and [place] [employer]ph[employer] recommendations. Blood BLOOD SPECIMEN / Unknown Venipuncture / Unknown 03/13/2025 4:40 PM CDT 03/13/2025 5:42 PM T us Provider Unknown LAB - CHEMISTRY ORDERABLES Johanne l Result [facility] [address] [place] [address] * (ABNORMAL) CBC WITH DIFFERENTIAL (03/13/2025 4:40 PM CDT) WBC 15.3(H) 4.0 - 10.7 x10E9/L 03/13/2025 6:26 PM CDT [facility] RBC Count 2.83(L) 4.30 - 5.80 x10E12/L 03/13/2025 6:26 PM CDT [facility] Hemoglobin 7.9(L) 13.3 - 17.5 g/dL 03/13/2025 6:26 PM CDT [facility] Hematocrit 25.5(L) 38.7 - 51.1 % 03/13/2025 6:26 PM CDT [facility] MCV 90.1 80.0 - 98.0 fL 03/13/2025 6:26 PM CDT [facility] MCH 27.9 26.7 - 33.6 pg 03/13/2025 6:26 PM CDT [facility] MCHC 31.0(L) 31.7 - 36.3 g/dL 03/13/2025 6:26 PM CDT [facility] RDW-CV 15.7(H) 11.3 - 14.8 % 03/13/2025 6:26 PM CDT [facility] Platelet Count 266 150 - 420 x10E9/L 03/13/2025 6:26 PM CDT [facility] MPV 10.8 7.8 - 11.4 fL 03/13/2025 6:26 PM CDT [facility] Blood BLOOD SPECIMEN / Unknown 03/13/2025 4:40 PM CDT 03/13/2025 5:42 PM CDT us Provider Unknown LAB - HEMATOLOGY ORDERABLES Fin al Result [facility] [address] [place] [address] documented in this encounter Visit Diagnoses Not on filedocumented in this encounter Additional Health Concerns Infection Onset Date Last Indicated Resolved Time ESBL GNR 06/01/2024 06/01/2024 documented as of this encounter Care Teams Rubber Compounder Mixer Relationship Specialty Start Date End Date Rod Strauss MD [address] [place] [phone] PCP - General Internal Medicine 06/15/24 documented as of this encounter
--- OUTSIDE RECORDS SUMMARY | 2025-05-16 12:16 | XMS_ITS | Encounter Summary ---
Author Organization [facility] Address [address] [place] [address] Care Team Providers Care Geothermal Electrical Engineer Name Role Phone Unavailable Primary Care Provider Unavailabl e Encounter Details Date Type Department Care Team (Late st Contact Info) Description 01/06/2006 Outpatient Historical [facility] Trauma and General Surgery [address] [facility] [place] [address] Jayden James MD [address] [facility] [place] [address] Social History Tobacco Use Types Packs/Day Years Used Date Smoking Tobacco: Never Assessed Sex and Gender Information Value Date Recorded Sex Assigned at Not on file 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
--- OUTSIDE RECORDS SUMMARY | 2025-05-16 12:16 | XMS_ITS | Encounter Summary ---
Author Organization [facility] Address [address] [place] [address] Care Team Providers Care Electron Beam Welder Name Role Phone Unavailable Primary Care Provider Unavailabl e Encounter Details Date Type Department Care Team (Late st Contact Info) Description 03/14/2006 Outpatient Historical [facility] [address] [place] [address] Devan Agrawal MD 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
--- OUTSIDE RECORDS SUMMARY | 2025-05-16 12:16 | XMS_ITS | Encounter Summary ---
Author Organization [facility] Address [address] [place] [address] Care Team Providers Care Ditching Machine Operator Name Role Phone Unavailable Primary Care Provider Unavailabl e Encounter Details Date Type Department Care Team (Late st Contact Info) Description 01/09/2006 Outpatient Historical [facility] Trauma and General Surgery [address] [phone] [place] [address] [place] [address] Social History Tobacco Use Types Packs/Day Years Used Date Smoking Tobacco: Never Assessed Sex and Gender Information Value Date Recorded Sex Assigned at Not on file 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
--- OUTSIDE RECORDS SUMMARY | 2025-05-16 12:16 | XMS_ITS | Encounter Summary ---
Author Organization [employer] Address 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 Gender Identity Not on file Sexual Orientation [...] ORDERABLES Final Res ult Performing Organization Address [facility] Phone Number INTERFACE SYSTEM [...] ORDERABLES Final Res ult Performing Organization Address [facility] Phone Number INTERFACE SYSTEM [...] ORDERABLES Final Resu lt Performing Organization Address [facility] Phone Number INTERFACE SYSTEM Refer to clinic/hospital department * (ABNORMAL) POC GLUCOSE (01/08/2006 9:26 PM CDT) GLUCOSE POC 133(H) 65 - 109 mg/dL INTERFACE SYSTEM 01/08/2006 9:26 PM CDT José Fine MD POINT OF CARE TESTING Final Result Performing Organization Address [facility] Phone Number INTERFACE SYSTEM Refer to clinic/hospital department * (ABNORMAL) POC GLUCOSE (01/08/2006 5:25 PM CDT) GLUCOSE POC 125(H) 65 - 109 mg/dL INTERFACE SYSTEM 01/08/2006 5:25 PM CDT José Fine MD POINT OF CARE TESTING Final Result Performing Organization Address [facility] Phone Number INTERFACE SYSTEM Refer to clinic/hospital department * (ABNORMAL) POC GLUCOSE (01/08/2006 11:50 AM CDT) GLUCOSE POC 122(H) 65 - 109 mg/dL INTERFACE SYSTEM 01/08/2006 11:5 0 AM CDT us José Fine MD POINT OF CARE TESTING Final Result Performing Organization Address [facility] Phone Number INTERFACE SYSTEM Refer to clinic/hospital department * (ABNORMAL) POC GLUCOSE (01/08/2006 5:35 AM CDT) GLUCOSE POC 128(H) 65 - 109 mg/dL INTERFACE SYSTEM 01/08/2006 5:35 AM CDT us José Fine MD POINT OF CARE TESTING Final Result Performing Organization Address [facility] Phone Number INTERFACE SYSTEM Refer to clinic/hospital department * (ABNORMAL) POC GLUCOSE (01/07/2006 8:48 PM CDT) GLUCOSE POC 124(H) 65 - 109 mg/dL INTERFACE SYSTEM 01/07/2006 8:48 PM CDT us José Fine MD POINT OF CARE TESTING Final Result Performing Organization Address [facility] Phone Number INTERFACE SYSTEM Refer to clinic/hospital department * (ABNORMAL) POC GLUCOSE (01/07/2006 4:51 PM CDT) GLUCOSE POC 121(H) 65 - 109 mg/dL INTERFACE SYSTEM 01/07/2006 4:51 PM CDT us José Fine MD POINT OF CARE TESTING Final Result Performing Organization Address [facility] Phone Number INTERFACE SYSTEM Refer to clinic/hospital department * (ABNORMAL) POC GLUCOSE (01/07/2006 11:16 AM CDT) GLUCOSE POC 119(H) 65 - 109 mg/dL INTERFACE SYSTEM 01/07/2006 11:1 6 AM CDT us José Fine MD POINT OF CARE TESTING Final Result Performing Organization Address [facility] de Phone Number INTERFACE SYSTEM Refer to clinic/hospital department * (ABNORMAL) POC GLUCOSE (01/07/2006 6:24 AM CDT) GLUCOSE POC 114(H) 65 - 109 mg/dL INTERFACE SYSTEM 01/07/2006 6:24 AM CDT us José Fine MD POINT OF CARE TESTING Final Result Performing Organization Address [facility] de Phone [...] ORDERABLES Final Resu lt Performing Organization Address [facility] de Phone [...] ORDERABLES Final Resu lt Performing Organization Address [facility] de Phone Number INTERFACE SYSTEM Refer to clinic/hospital department * PHOSPHORUS (01/07/2006 5:30 AM CDT) PHOSPHORUS 3.1 2.5 - 4.5 mg/dL INTERFACE SYSTEM 01/07/2006 5:30 AM CDT Terry Cole MD CHEMISTRY ORDERABLES Final Resul t Performing Organization Address [facility] Phone Number INTERFACE SYSTEM Refer to clinic/hospital department * MAGNESIUM LEVEL (01/07/2006 5:30 AM CDT) MAGNESIUM 2.3 1.5 - 2.5 mg/dL INTERFACE SYSTEM 01/07/2006 5:30 AM CDT Terry Cole MD CHEMISTRY ORDERABLES Final Resul t Performing Organization Address [facility] Phone Number INTERFACE SYSTEM [...] ORDERABLES Final Resul t Performing Organization Address [facility] de Phone Number INTERFACE SYSTEM Refer to clinic/hospital department * (ABNORMAL) POC GLUCOSE (01/07/2006 12:49 AM CDT) GLUCOSE POC 114(H) 65 - 109 mg/dL INTERFACE SYSTEM 01/07/2006 12:4 9 AM CDT us José Fine MD POINT OF CARE TESTING Final Result Performing Organization Address [facility] Co de Phone Number INTERFACE SYSTEM Refer to clinic/hospital department * (ABNORMAL) POC GLUCOSE (01/06/2006 5:40 PM CDT) COMMENT, GLU POC Notified RN INTERFACE SYSTEM GLUCOSE POC 128(H) 65 - 109 mg/dL INTERFACE SYSTEM 01/06/2006 5:40 PM CDT us José Fine MD POINT OF CARE TESTING Final Result Performing Organization Address [facility] Phone Number INTERFACE SYSTEM Refer to clinic/hospital department * (ABNORMAL) POC GLUCOSE (01/06/2006 11:43 AM CDT) COMMENT, GLU POC Notified RN INTERFACE SYSTEM GLUCOSE POC 120(H) 65 - 109 mg/dL INTERFACE SYSTEM 01/06/2006 11:4 3 AM CDT us José Fine MD POINT OF CARE TESTING Final Result Performing Organization Address [facility] de Phone Number INTERFACE SYSTEM Refer to clinic/hospital department * (ABNORMAL) POC GLUCOSE (01/06/2006 5:48 AM CDT) GLUCOSE POC 120(H) 65 - 109 mg/dL INTERFACE SYSTEM 01/06/2006 5:48 AM CDT us José Fine MD POINT OF CARE TESTING Final Result Performing Organization Address [facility] Co de Phone Number [...] ORDERABLES Final Resu lt Performing Organization Address [facility]/ZIP Co de Phone Number INTERFACE SYSTEM [...] ORDERABLES Final Resul t Performing Organization Address [facility] de Phone [...] ORDERABLES Final Resul t Performing Organization Address [facility]/ZIP Co de Phone Number INTERFACE SYSTEM Refer to clinic/hospital department * (ABNORMAL) POC GLUCOSE (01/06/2006 1:00 AM CDT) GLUCOSE POC 142(H) 65 - 109 mg/dL INTERFACE SYSTEM 01/06/2006 1:00 AM CDT José Fine MD POINT OF CARE TESTING Final Result Performing Organization Address [facility] Phone Number INTERFACE SYSTEM Refer to clinic/hospital department * (ABNORMAL) POC GLUCOSE (01/05/2006 5:49 PM CDT) GLUCOSE POC 137(H) 65 - 109 mg/dL INTERFACE SYSTEM 01/05/2006 5:49 PM CDT José Fine MD POINT OF CARE TESTING Final Result Performing Organization Address [facility] Phone Number INTERFACE SYSTEM Refer to clinic/hospital department * (ABNORMAL) POC GLUCOSE (01/05/2006 11:57 AM CDT) GLUCOSE POC 133(H) 65 - 109 mg/dL INTERFACE SYSTEM 01/05/2006 11:5 7 AM CDT José Fine MD POINT OF CARE TESTING Final Result Performing Organization Address [facility] Phone Number INTERFACE SYSTEM Refer to clinic/hospital department * (ABNORMAL) POC GLUCOSE (01/05/2006 5:59 AM CDT) GLUCOSE POC 142(H) 65 - 109 mg/dL INTERFACE SYSTEM 01/05/2006 5:59 AM CDT José Fine MD POINT OF CARE TESTING Final Result Performing Organization Address [facility] Phone Number INTERFACE SYSTEM [...] K/uL INTERFACE SYSTEM 01/05/2006 4:00 AM CDT [facility] [employer] HEMATOLOGY ORDERABLES Final Result Performing Organization Address [facility] Phone Number INTERFACE SYSTEM [...] fL INTERFACE SYSTEM 01/05/2006 4:00 AM CDT [email or web address] HEMATOLOGY ORDERABLES Final Result Performing Organization Address [facility] Phone Number INTERFACE SYSTEM [...] patients with mechanical heart valves or post GA. Pediatric (12 years and under): 1.5 - [...] for unfractionated heparin 01/05/2006 4:00 AM CDT [employer] HEMATOLOGY ORDERABLES Final Result Performing Organization Address [facility] Phone Number INTERFACE SYSTEM Refer to clinic/hospital department * PHOSPHORUS (01/05/2006 4:00 AM CDT) PHOSPHORUS 2.9 2.5 - 4.5 mg/dL INTERFACE SYSTEM 01/05/2006 4:00 AM CDT Luis Eduardo [employer] CHEMISTRY ORDERABLES Final R esult Performing Organization Address [facility] Phone Number INTERFACE SYSTEM Refer to clinic/hospital department * MAGNESIUM LEVEL (01/05/2006 4:00 AM CDT) MAGNESIUM 2.2 1.5 - 2.5 mg/dL INTERFACE SYSTEM 01/05/2006 4:00 AM CDT [employer] CHEMISTRY ORDERABLES Final R esult Performing Organization Address [facility] Phone Number INTERFACE SYSTEM [...] ORDERABLES Final R esult Performing Organization Address [facility] Phone Number INTERFACE SYSTEM Refer to clinic/hospital department * (ABNORMAL) POC GLUCOSE (01/04/2006 11:41 PM CDT) GLUCOSE POC 140(H) 65 - 109 mg/dL INTERFACE SYSTEM 01/04/2006 11:4 1 PM CDT us José Fine MD POINT OF CARE TESTING Final Result Performing Organization Address [facility] Phone Number INTERFACE SYSTEM Refer to clinic/hospital department * (ABNORMAL) POC GLUCOSE (01/04/2006 5:43 PM CDT) GLUCOSE POC 156(H) 65 - 109 mg/dL INTERFACE SYSTEM 01/04/2006 5:43 PM CDT us José Fine MD POINT OF CARE TESTING Final Result Performing Organization Address [facility] Phone Number INTERFACE SYSTEM Refer to clinic/hospital department * (ABNORMAL) POC GLUCOSE (01/04/2006 11:37 AM CDT) GLUCOSE POC 175(H) 65 - 109 mg/dL INTERFACE SYSTEM 01/04/2006 11:3 7 AM CDT us José Fine MD POINT OF CARE TESTING Final Result Performing Organization Address [facility] Phone Number INTERFACE SYSTEM Refer to clinic/hospital department * (ABNORMAL) POC GLUCOSE (01/04/2006 6:11 AM CDT) GLUCOSE POC 183(H) 65 - 109 mg/dL INTERFACE SYSTEM 01/04/2006 6:11 AM CDT José Fine MD POINT OF CARE TESTING Final Result Performing Organization Address [facility] Phone Number INTERFACE SYSTEM [...] ORDERABLES F inal Result Performing Organization Address [facility] Phone Number INTERFACE SYSTEM [...] INTERFACE SYSTEM 01/04/2006 4:20 AM CDT us Raryay Wilcox MD HEMATOLOGY ORDERABLES F inal Result [...] patients with mechanical heart valves or post GA. Pediatric (12 years and under): 1.5 - [...] ORDERABLES F inal Result Performing Organization Address [facility] Phone Number INTERFACE SYSTEM Refer to clinic/hospital department * PHOSPHORUS (01/04/2006 4:20 AM CDT) PHOSPHORUS 2.5 2.5 - 4.5 mg/dL INTERFACE SYSTEM 01/04/2006 4:20 AM CDT us Rayray Wilcox MD CHEMISTRY ORDERABLES Fi nal Result Performing Organization Address [facility] Phone Number INTERFACE SYSTEM Refer to clinic/hospital department * MAGNESIUM LEVEL (01/04/2006 4:20 AM CDT) MAGNESIUM 2.0 1.5 - 2.5 mg/dL INTERFACE SYSTEM 01/04/2006 4:20 AM CDT Rayray Wilcox MD CHEMISTRY ORDERABLES Fi nal Result Performing Organization Address [facility] Phone Number INTERFACE SYSTEM Refer [...] ORDERABLES Final Re sult Performing Organization Address [facility]/ZIP Co de Phone Number INTERFACE SYSTEM Refer to clinic/hospital department * (ABNORMAL) POC GLUCOSE (01/04/2006 12:25 AM CDT) GLUCOSE POC 188(H) 65 - 109 mg/dL INTERFACE SYSTEM 01/04/2006 12:2 5 AM CDT José Fine MD POINT OF CARE TESTING Final Result Performing Organization Address [facility] de Phone Number INTERFACE SYSTEM Refer to clinic/hospital department * (ABNORMAL) POC GLUCOSE (01/03/2006 5:25 PM CDT) GLUCOSE POC 177(H) 65 - 109 mg/dL INTERFACE SYSTEM 01/03/2006 5:25 PM CDT José Fine MD POINT OF CARE TESTING Final Result Performing Organization Address [facility] de Phone Number INTERFACE SYSTEM Refer to clinic/hospital department * (ABNORMAL) POC GLUCOSE (01/03/2006 11:34 AM CDT) GLUCOSE POC 148(H) 65 - 109 mg/dL INTERFACE SYSTEM 01/03/2006 11:3 4 AM CDT José Fine MD POINT OF CARE TESTING Final Result Performing Organization Address [facility] de Phone [...] ORDERABLES F inal Result Performing Organization Address [facility] Phone Number INTERFACE SYSTEM [...] ORDERABLES F inal Result Performing Organization Address [facility] Phone Number INTERFACE SYSTEM [...] ORDERABLES F inal Result Performing Organization Address [facility] Phone Number INTERFACE SYSTEM [...] patients with mechanical heart valves or post GA. Pediatric (12 years and under): 1.5 - [...] ORDERABLES F inal Result Performing Organization Address [facility] Number INTERFACE SYSTEM Refer to clinic/hospital department * PHOSPHORUS (01/03/2006 10:46 AM CDT) PHOSPHORUS 3.3 2.5 - 4.5 mg/dL INTERFACE SYSTEM 01/03/2006 10:4 6 AM CDT Rayray Wilcox MD CHEMISTRY ORDERABLES Fi nal Result Performing Organization Address [facility] Phone Number INTERFACE SYSTEM Refer to clinic/hospital department * MAGNESIUM LEVEL (01/03/2006 10:46 AM CDT) MAGNESIUM 1.8 1.5 - 2.5 mg/dL INTERFACE SYSTEM 01/03/2006 10:4 6 AM CDT Rayray Wilcox MD CHEMISTRY ORDERABLES Fi nal Result Performing Organization Address [facility] Phone Number INTERFACE SYSTEM [...] CHEMISTRY ORDERABLES nal Result Performing Organization Address [facility] Phone Number INTERFACE SYSTEM [...] patients with mechanical heart valves or post GA. Pediatric (12 years and under): 1.5 - [...] [facility] Intranet at: [email or web address] Select: Drugs of Abuse ? [facility] To inquire about any potential cross-reactivity of [...] URINE ORDERABLES Final Result Performing Organization Address [place]/[facility]/ZIP Co de Phone Number INTERFACE SYSTEM [...]
--- OUTSIDE RECORDS SUMMARY | 2025-05-16 12:16 | XMS_ITS | Encounter Summary ---
Author Organization [employer] Address 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 Gender Identity Not on file Sexual [...] ORDERABLES Final Re sult Performing Organization Address [facility] Phone Number INTERFACE SYSTEM Refer to clinic/hospital department * C-REACTIVE PROTEIN (04/05/2006 5:15 AM CDT) Pathologist [facility] CRP 0.2 0.0 - 0.8 mg/dL INTERFACE SYSTEM 04/05/2006 5:15 AM CDT [facility] CHEMISTRY ORDERABLES Final Res ult Performing Organization Address [facility] Phone Number INTERFACE SYSTEM Refer to clinic/hospital [...] ORDERABLES Final R esult Performing Organization Address [place] Phone Number INTERFACE [...] Final Res ult Performing Organization Address [facility] Phone Number INTERFACE [...] ORDERABLES Final Res ult Performing Organization Address [place]/[facility] Phone Number INTERFACE SYSTEM Refer to clinic/hospital department * C-REACTIVE PROTEIN (03/29/2006 5:15 AM CDT) CRP 0.3 0.0 - 0.8 mg/dL INTERFACE SYSTEM 03/29/2006 5:15 AM CDT us Keenan Mandujano MD CHEMISTRY ORDERABLES Final Resu lt Performing Organization Address [facility] Phone Number INTERFACE [...] Final Resu lt Performing Organization Address [facility] Phone Number INTERFACE [...] Final Re sult Performing Organization Address [facility] Phone Number INTERFACE [...] INTERFACE SYSTEM 03/24/2006 12:1 0 PM CDT [facility] HEMATOLOGY ORDERABLES Final Re sult Performing Organization Address [facility] Phone Number INTERFACE SYSTEM Refer to clinic/hospital department * VANCOMYCIN LEVEL TROUGH (03/24/2006 12:10 PM CDT) VANCOMYCIN, TROUGH 11.3 5.0 - 15.0 ug/mL INTERFACE SYSTEM Comment: Vancomycin Trough Toxic Level= >15.0 ug/mL 03/24/2006 12:1 0 PM CDT [employer] Zaid CHEMISTRY ORDERABLES Final Res ult Performing Organization Address [facility] Phone Number INTERFACE SYSTEM Refer to clinic/hospital department * C-REACTIVE PROTEIN (03/24/2006 12:10 PM CDT) CRP 0.6 0.0 - 0.8 mg/dL INTERFACE SYSTEM 03/24/2006 12:1 0 PM CDT [employer] Zaid CHEMISTRY ORDERABLES Final Res ult Performing Organization Address [facility] Phone Number INTERFACE [...] ORDERABLES Final Res ult Performing Organization Address [facility] Co de Phone Number INTERFACE SYSTEM [...] INTERFACE SYSTEM 03/23/2006 11:3 0 AM CDT [facility] HEMATOLOGY ORDERABLES Final Re sult Performing Organization Address [facility] [...] INTERFACE SYSTEM 03/23/2006 11:3 0 AM CDT [employer] Zaid HEMATOLOGY ORDERABLES Final Re sult Performing Organization Address [place]/[facility] Co de Phone Number INTERFACE SYSTEM Refer to clinic/hospital department * VANCOMYCIN LEVEL TROUGH (03/23/2006 11:30 AM CDT) VANCOMYCIN, TROUGH 6.2 5.0 - 15.0 ug/mL INTERFACE SYSTEM Comment: Vancomycin Trough Toxic Level= >15.0 ug/mL 03/23/2006 11:3 0 AM CDT [employer] Zaid CHEMISTRY ORDERABLES Final Res ult Performing Organization Address [facility] Phone Number INTERFACE SYSTEM Refer to clinic/hospital department * (ABNORMAL) C-REACTIVE PROTEIN (03/23/2006 11:30 AM CDT) CRP 1.0(H) 0.0 - 0.8 mg/dL INTERFACE SYSTEM 03/23/2006 11:3 0 AM CDT [facility] CHEMISTRY ORDERABLES Final Res ult Performing Organization Address [facility] Phone Number INTERFACE SYSTEM Refer to clinic/hospital [...] INTERFACE SYSTEM 03/23/2006 11:3 0 AM CDT [facility] ORDERABLES Final Res ult Performing Organization Address [facility] Phone Number INTERFACE [...] Final R esult Performing Organization Address [facility] Phone Number INTERFACE [...] /HPF INTERFACE SYSTEM 03/22/2006 8:30 PM CDT [employer] URINE ORDERABLES Final Result Performing Organization Address [facility] Phone Number INTERFACE [...] Sushil Arroyo MD CHEMISTRY ORDERABLES Final R [facility] Performing Organization Address [facility] [...] Sushil Arroyo MD CHEMISTRY ORDERABLES Final R [facility] Performing Organization Address City/[facility] [...] ORDERABLES Final Result Performing Organization Address [facility] Phone Number INTERFACE [...] ORDERABLES Final Result Performing Organization Address [facility] Phone Number INTERFACE [...] Final R esult Performing Organization Address [facility] Phone Number INTERFACE [...] Final Resul t Performing Organization Address [facility] Phone Number INTERFACE SYSTEM Refer to clinic/hospital department documented in this encounter Visit Diagnoses Diagnosis Other specified rehabilitation procedure(V57.89)- Primary Other specified rehabilitation procedure documented in this encounter
--- OUTSIDE RECORDS SUMMARY | 2025-05-16 12:16 | XMS_ITS | Encounter Summary ---
Author Organization [facility] Address 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
--- OUTSIDE RECORDS SUMMARY | 2025-05-16 12:16 | XMS_ITS | Clinical Summary ---
Author Organization [facility] Address [address] [place] [address] Care Team Providers Care Automatic Buffer Name Role Phone Rod Strauss MD Primary Care Provider [phone] Source Comments [facility],non-owned Affiliates and Associated Physician Practices is amultiple site organization consisting of ambulatory clinics and hospital sitesin [place], [place], [place] and [place]. This disclosure is being madepursuant to the Care Everywhere program and may not contain all information available regarding this patient. 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 Follows with [facility]. -continue home metoprolol 25mg [...] (05/30/2024): Last Assessment & Plan: H/o L CARPET LOOM FIXER infarct 2019, continue asa/statin Hydronephrosis 05/10/2019 Pyelonephritis [...] that has since passed. Urine cx from [facility] on 05/04 also growing pseudomonas, resistant [...] to reach son and obtained collateral from [facility] - [place] Head today. - Fall [...] Department Care Team Description 03/13/2025 Lab Requisition [facility] [address] [place] [id number] Unknown, Provider from Last 3 Months Social [...] medical care, and heating? Patient declined 05/31/2024 [facility] - Occupational Stress [...] were you homeless or living in a fci (including now)? Patient declined 05/31/2024 Sex and Gender Information Value Date Recorded Sex Assigned at Not on file Legal Sex Male 5:23 PM LEAK HUNTER Gender Identity Not on file Sexual Orientation Not on file Last Filed Vital Signs Vital Sign Reading Time Taken Comments Blood Pressure 135/77 06/15/2024 11:48 AM LEAK HUNTER Pulse 74 06/15/2024 11:48 AM LEAK HUNTER Temperature 36.4 C (97.6 F) 06/15/2024 8:35 AM LEAK HUNTER Respiratory Rate 16 06/15/2024 11:48 AM LEAK HUNTER Oxygen Saturation 97% 06/15/2024 11:48 AM LEAK HUNTER Inhaled Oxygen Concentration 40% 06/04/2024 9 :43 AM LEAK HUNTER Weight 88.5 kg (195 lb) 06/15/2024 8:35 AM LEAK HUNTER Height 190.5 cm (6' 3) 06/15/2024 8:35 AM LEAK HUNTER Body Mass Index 24.37 06/15/2024 8:35 AM LEAK HUNTER Plan of Treatment Health Maintenance Due Date Last Done Comments MEDICARE AWV 12 MONTHS 1949 DTAP/TDAP/TD VACCINES (1 - Tdap) 1968 PNEUMOCOCCAL VACCINE 50+ (1 of 1 - PCV) 1999 ZOSTER VACCINE (1 of 2) 1999 Respiratory Syncytial Virus (RSV) Vaccine Pt: or over 60 yrs (1 - 1-dose 75+ series) 2024 DEPRESSION SCREENING 07/05/2024 COVID-19 VACCINE (2024- season) 2025 04/28/2022, 12/24/2021, 07/27/2020, Additional history [...] this topic Medical Devices Implanted Type Area Chronic Manager Device Identifier Shelf Expiration Date Model / Serial / Lot Synchromed Iii Pump Implanted:Qty: 1 on 06/04/2024 by Deshawn Schultz MD at [facility] Left: Abdomen [employer] 08/18/2025 8667-40 / [id number] / Ascenda Implanted:Qty: 1 on 06/04/2024 by Deshawn Schultz MD at [facility] Left: Abdomen [employer] 12/14/2024 [id number] / / [id number] Procedures Procedure Name Priority Date/Time Associated Diagnosis Comments DIFFERENTIAL MANUAL STAT 03/13/2025 4 :40 PM CDT COMPREHENSIVE METABOLIC PANEL STAT 03/13/2025 4:40 PM CDT CBC W AUTO DIFFERENTIAL STAT 03/13/2025 4:40 PM CDT HEPATITIS C AB SCREEN RFLX NAAT QUANT STAT 06/06/2024 11:49 AM LEAK HUNTER from Last 3 Months or Most Recently Relevant to Health Maintenance Results * (ABNORMAL) DIFFERENTIAL MANUAL (03/13/2025 4:40 PM CDT) Neutrophil % 92(H) 41 - 74 % 03/13/2025 6:26 PM CDT [facility] Lymphocyte % 1(L) 17 - 47 % 03/13/2025 6:26 PM CDT [facility] Monocyte % 7 3 - 11 % 03/13/2025 6:26 PM CDT [facility] Neutrophil Absolute 14.08(H) 1.60 - 7.50 x10E9/L 03/13/2025 6:26 PM CDT [facility] Lymphocyte Absolute 0.15(L) 1.00 - 4.40 x10E9/L 03/13/2025 6:26 PM CDT [facility] Monocyte Absolute 1.07(H) 0.15 - 1.00 x10E9/L 03/13/2025 6:26 PM CDT [facility] RBC Morphology NORMAL 03/13/2025 6:26 PM CDT [facility] Blood BLOOD SPECIMEN / Unknown 03/13/2025 4:40 PM CDT 03/13/2025 5:42 PM CDT us Provider Unknown LAB - HEMATOLOGY ORDERABLES Fin al Result Performing Organization Address City/[facility]/ZIP Co de Phone Number [facility] [address] [place] [address] * (ABNORMAL) CBC WITH DIFFERENTIAL (03/13/2025 4:40 PM CDT) [facility] WBC 15.3(H) 4.0 - 10.7 x10E9/L 03/13/2025 6:26 PM CDT [facility] RBC Count 2.83(L) 4.30 - 5.80 x10E12/L 03/13/2025 6:26 PM CDT [facility] Hemoglobin 7.9(L) 13.3 - 17.5 g/dL 03/13/2025 6:26 PM CDT [facility] Hematocrit 25.5(L) 38.7 - 51.1 % 03/13/2025 6:26 PM CDT [facility] MCV 90.1 80.0 - 98.0 fL 03/13/2025 6:26 PM CDT [facility] MCH 27.9 26.7 - 33.6 pg 03/13/2025 6:26 PM CDT [facility] MCHC 31.0(L) 31.7 - 36.3 g/dL 03/13/2025 6:26 PM CDT [facility] RDW-CV 15.7(H) 11.3 - 14.8 % 03/13/2025 6:26 PM CDT [facility] Platelet Count 266 150 - 420 x10E9/L 03/13/2025 6:26 PM CDT [facility] MPV 10.8 7.8 - 11.4 fL 03/13/2025 6:26 PM CDT [facility] Blood BLOOD SPECIMEN / Unknown 03/13/2025 4:40 PM CDT 03/13/2025 5:42 PM CDT Provider Unknown LAB - HEMATOLOGY ORDERABLES Fin al Result Performing Organization Address City/[facility]/ZIP Co de Phone Number [facility] [address] [place] [address] * (ABNORMAL) COMPREHENSIVE METABOLIC PANEL (03/13/2025 4:40 PM CDT) [facility] Glucose 118(H) 70 - 99 mg/dL 03/13/2025 6:07 PM [facility] Sodium 135(L) 136 - 145 mmol/L 03/13/2025 6:07 PM [facility] Potassium 3.6 3.5 - 5.1 mmol/L 03/13/2025 6:07 PM [facility] Chloride 98 98 - 107 mmol/L 03/13/2025 6:07 PM [facility] CO2 27 22 - 29 mmol/L 03/13/2025 6:07 PM [facility] Calcium 7.7(L) 8.4 - 10.4 mg/dL 03/13/2025 6:07 PM [facility] Anion Gap 10 6 - 16 mmol/L 03/13/2025 6:07 PM [facility] BUN 23 7 - 26 mg/dL 03/13/2025 6:07 PM [facility] Creatinine 0.74 0.72 - 1.25 mg/dL 03/13/2025 6:07 PM [facility] Alkaline Phosphatase 94 40 - 150 U/L 03/13/2025 6:07 PM [facility] ALT 31 6 - 57 U/L 03/13/2025 6:07 PM [facility] AST 39 10 - 48 U/L 03/13/2025 6:07 PM [facility] Protein Total 5.6(L) 6.4 - 8.3 gm/dL 03/13/2025 6:07 PM [facility] Albumin 2.5(L) 3.1 - 4.5 gm/dL 03/13/2025 6:07 PM [facility] Bilirubin Total 0.5 0.2 - 1.2 mg/dL 03/13/2025 6:07 PM [facility] eGFR by CKD-EPI >90 >=90 mL/min/1.7 3 m2 03/13/2025 6:07 PM [facility] Comment:Estimated Glomerular Filtration Rate (eGFR) calculated using the CKD-EPI Creatinine Equation (2020), per the National Kidney Foundation and [place] Society of Nephrology recommendations. Blood BLOOD SPECIMEN / Unknown Venipuncture / Unknown 03/13/2025 4:40 PM CDT 03/13/2025 5:42 PM CDT Provider Unknown LAB - CHEMISTRY ORDERABLES Johanne l Result Performing Organization Address City/[facility] Co de Phone Number [facility] [address] [place] [address] * HEPATITIS C AB SCREEN RFLX NAAT QUANT (06/06/2024 11:49 AM LEAK HUNTER) Hepatitis C Antibody Non-react lottie Non-reac tive 06/06/2024 1:01 PM LEAK HUNTER [facility] Comment:Hepatitis C Antibody screen indicates no serologic evidence of past or current infection with Hepatitis C Virus. Patients with unexplained liver disease who are immunocompromised or suspected of having acute Hepatitis C infection may benefit from Nucleic Acid Test (NEIDA) for Hepatitis C Viral RNA to confirm Hepatitis C status. Blood BLOOD SPECIMEN / Unknown Lab Venipuncture / Unknown 06/06/2024 11:49 AM LEAK HUNTER 06/06/2024 12:05 PM LEAK HUNTER Salena Griffin SHEET IRONWORKER-COMMUNITY LIAISON LAB - CHEMISTRY ORDERABLES F inal Result Performing Organization Address City/[facility] Co de Phone Number [address] [id number] [phone] from Last 3 Months or Most Recently Relevant to Health Maintenance Additional Health Concerns Infection Onset Date Last Indicated ESBL GNR 06/01/2024 06/01/[address] [place] [address] [employer] Advance Directives * Full Code (Latest Code Status on File) Date Activated Date Inactivated Comments 05/31/2024 11:27 PM 06/09/2024 8:37 PM Care Teams Automatic Buffer Relationship Specialty Start Date End Date Rod Strauss MD [address] [place] [id number] PCP - General Internal Medicine 06/15/24
--- OUTSIDE RECORDS SUMMARY | 2025-05-16 12:16 | XMS_ITS | Encounter Summary ---
Author Organization [facility] Address [address] [place] [address] Care Team Providers Care Fiberglass Boat Parts Finisher Name Role Phone Unavailable Primary Care Provider Unavailabl e Encounter Details Date Type Department Care Team (Late st Contact Info) Description 03/10/2006 Outpatient Historical [facility] [address] [address] Rita Esqueda MD 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
--- OUTSIDE RECORDS SUMMARY | 2025-05-16 12:16 | XMS_ITS | Encounter Summary ---
Author Organization [facility] Address [address] [place] [address] Care Team Providers Care Concrete Finisher Name Role Phone Unavailable Primary Care Provider Unavailabl e Encounter Details Date Type Department Care Team (Late st Contact Info) Description 05/13/2019 Lab Requisition [facility] [address] [place] [address] [facility], External Provider [address] [place] [address] Other fatigue Social History Tobacco Use Types Packs/Day Years Used Date Smoking Tobacco: Never Assessed Sex and Gender Information Value Date Recorded Sex Assigned at Not on file Legal Sex Male 3:46 AM ENERGY TRADER Gender Identity Not on file Sexual Orientation Not on file documented as of this encounter Plan of Treatment Not on file documented as of this encounter Procedures Procedure Name Priority Date/Time Associated Diagnosis Comments CBC WITH DIFFERENTIAL Stat 05/13/2019 4:50 PM ENERGY TRADER Other fatigue BASIC METABOLIC PANEL Stat 05/13/2019 4:50 PM ENERGY TRADER Other fatigue documented in this encounter Results * (ABNORMAL) CBC WITH DIFFERENTIAL (05/13/2019 4:50 PM ENERGY TRADER) [facility] WBC 6.1 4.5 - 10.5 K/uL 05/13/2019 9:52 PM ENERGY TRADER [facility] RBC 4.04(L) 4.50 - 5.40 M/uL 05/13/2019 9:52 PM ENERGY TRADER [facility] HEMOGLOBIN 12.1(L) 13.6 - 16.5 g/dL 05/13/2019 9:52 PM ENERGY TRADER [facility] HEMATOCRIT 37.1(L) 40.0 - 48.0 % 05/13/2019 9:52 PM [facility] MCV 91.7 82.0 - 99.0 fL 05/13/2019 9:52 PM [facility] MCH 30.0 27.8 - 34.5 pg 05/13/2019 9:52 PM [facility] MCHC 32.7 32.5 - 35.5 g/dL 05/13/2019 9:52 PM [facility] RDW 14.9(H) 11.5 - 14.5 % 05/13/2019 9:52 PM [facility] PLATELETS 162 160 - 420 K/uL 05/13/2019 9:52 PM [facility] MPV 9.8 8.7 - 12.7 fL 05/13/2019 9:52 PM [facility] NEUTROPHILS 70 45 - 70 % 05/13/2019 9:52 PM [facility] LYMPHOCYTES 16 16 - 45 % 05/13/2019 9:52 PM [facility] MONOCYTES 10 3 - 13 % 05/13/2019 9:52 PM [facility] EOSINOPHILS 4 0 - 7 % 05/13/2019 9:52 PM [facility] BASOPHILS 1 0 - 2 % 05/13/2019 9:52 PM [facility] NEUTROPHIL ABSOLUTE 4.20 1.90 - 7.00 K/uL 05/13/2019 9:52 PM [facility] LYMPHOCYTE ABSOLUTE 0.90 K/uL 05/13/2019 9:52 PM [facility] MONOCYTE ABSOLUTE 0.60 K/uL 05/13/2019 9:52 PM [facility] EOSINOPHIL ABSOLUTE 0.30 0.00 - 0.70 K/uL 05/13/2019 9:52 PM [facility] BASOPHILS ABSOLUTE 0.00 K/uL 05/13/2019 9:52 PM [facility] Blood BLOOD SPECIMEN / Unknown Collection / Unknown 05/13/2019 4:50 PM ENERGY TRADER 05/13/2019 9:42 PM ENERGY TRADER us External Provider [facility] HEMATOLOGY ORDERABLES Fin al Result [facility] LESTER# [id number] [place] [address] * (ABNORMAL) BASIC METABOLIC PANEL (05/13/2019 4:50 PM ENERGY TRADER) SODIUM 143 136 - 145 mmol/L 05/13/2019 10:11 PM [facility] POTASSIUM 4.2 3.4 - 5.1 mmol/L 05/13/2019 10:11 PM [facility] CHLORIDE 104 98 - 107 mmol/L 05/13/2019 10:11 PM [facility] CO2 27 22 - 29 mmol/L 05/13/2019 10:11 PM [facility] CALCIUM 8.5(L) 8.6 - 10.4 mg/dL 05/13/2019 10:11 PM [facility] BUN 24(H) 6 - 20 mg/dL 05/13/2019 10:11 PM [facility] CREATININE 1.09 0.70 - 1.20 mg/dL 05/13/2019 10:11 PM [facility] Comment:The GFR result is no t clinically significant on patients <18 or >70 years of age. GLUCOSE 96 74 - 99 mg/dL 05/13/2019 10:11 PM [facility] GFR >60 mL/min/1.7 3 sq meter 05/13/2019 10:11 PM [facility] Comment: eGFR has not been [...] mL/min/1.7 3 sq meter 05/13/2019 10:11 PM ENERGY TRADER [facility] ANION GAP 12 8 - 16 mmol/L 05/13/2019 10:11 PM ENERGY TRADER [facility] Blood BLOOD SPECIMEN / Unknown Collection / Unknown 05/13/2019 4:50 PM ENERGY TRADER 05/13/2019 9:42 PM ENERGY TRADER External Provider [facility] CHEMISTRY ORDERABLES Johanne l Result [facility] CLIA# [id number] [place] [address] documented in this encounter Visit Diagnoses Diagnosis Other fatigue documented in this encounter
--- OUTSIDE RECORDS SUMMARY | 2025-05-16 12:16 | XMS_ITS | Encounter Summary ---
Author Organization [facility] Address 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
--- OUTSIDE RECORDS SUMMARY | 2025-05-16 12:16 | XMS_ITS | Clinical Summary ---
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 discordance with absolute values may lead to misinterpretation of CBC data. Current Interpretive Data was last revised on 2017. Imm gran pct 0.5 % [facility] Comment: Interpretive Data Percent cell count reference ranges are not reported, since discordance with absolute values may lead to misinterpretation of CBC data. Current Interpretive Data was last revised on 2017. Lymphocyte pct 11.1 % [facility] Comment: Interpretive Data Percent cell count reference ranges are not reported, since discordance with absolute values may lead to misinterpretation of CBC data. Current Interpretive Data was last revised on 2017. Monocyte pct 10.6 % [facility] Comment: Interpretive Data Percent cell count reference ranges are not reported, since discordance with absolute values may lead to misinterpretation of CBC data. Current Interpretive Data was last revised on 2017. Eosinophil pct 3.8 % [facility] Comment: Interpretive Data Percent cell count reference ranges are not reported, since discordance with absolute values may lead to misinterpretation of CBC data. Current Interpretive Data was last revised on 2017. Basophil pct 0.3 % [facility] Comment: Interpretive Data Percent cell count reference ranges are not reported, since discordance with absolute values may lead to misinterpretation of CBC data. Current Interpretive Data was last revised on 2017. Blood 05/07/2025 4:57 AM LOBSTER MAN 05/07/2025 5:09 AM LOBSTER MAN Dillan Fonseca MD LAB BLOOD ORDERABLES Final Result [facility] [address] [facility] Department [place] [address] * (ABNORMAL) CBC with auto differential (05/07/2025 4:57 AM LOBSTER MAN) WBC 8.58 3.80 - 9.90 K/cumm Hgb 8.0(L) 13.0 - 17.5 g/dL [facility] Hct 26.7(L) 38.9 - 50.3 % [facility] Plt 329 150 - 400 K/cumm [facility] MPV 9.8 9.1 - 12.3 fL [facility] RBC 3.11(L) 4.30 - 5.80 M/cumm [facility] MCV 85.9 81.3 - 96.4 fL [facility] MCH 25.7(L) 27.1 - 33.3 pg [facility] MCHC 30.0(L) 32.3 - 35.7 g/dL [facility] RDW CV 16.7(H) 11.1 - 14.9 % [facility] RDW SD 51.5(H) 35.7 - 48.1 fL [facility] NRBC abs 0.00 0.00 - 0.01 K/cumm [facility] Blood 05/07/2025 4:57 AM LOBSTER MAN 05/07/2025 5:09 AM LOBSTER MAN Dillan Fonseca MD LAB BLOOD ORDERABLES Final Result Performing Organization Address [facility] de Phone Number [address] [address] * Phosphorus (05/07/2025 4:57 AM LOBSTER MAN) [facility] Phosphorus, pl 3.5 2.3 - 4.5 mg/dL Blood 05/07/2025 4:57 AM LOBSTER MAN 05/07/2025 5:09 AM LOBSTER MAN Dillan Fonseca MD LAB BLOOD ORDERABLES Final Result Performing Organization Address [facility] de Phone Number [address] [address] * Magnesium (05/07/2025 4:57 AM LOBSTER MAN) [facility] Magnesium 2.2 1.4 - 2.5 mg/dL Blood 05/07/2025 4:57 AM LOBSTER MAN 05/07/2025 5:09 AM LOBSTER MAN Dillan Fonseca MD LAB BLOOD ORDERABLES Final Result Performing Organization Address [facility] de Phone Number [address] [address] * (ABNORMAL) Basic metabolic panel (05/07/2025 4:57 AM LOBSTER MAN) [facility] Sodium 135 135 - 145 mmol/L Potassium, pl 3.9 3.3 - 4.9 mmol/L [facility] Chloride 99 97 - 110 mmol/L [facility] CO2 27 22 - 32 mmol/L [facility] Anion gap 9 2 - 15 mmol/L [facility] BUN 26(H) 6 - 25 mg/dL [facility] Creatinine 0.75(L) 0.80 - 1.30 mg/dL [facility] Glucose 110 70 - 199 mg/dL [facility] Comment: Interpretive Data Fasting glucose >/= 126 [...] Calcium 8.5 8.5 - 10.3 mg/dL [facility] Blood 05/07/2025 4:57 AM LOBSTER MAN 05/07/2025 5:09 AM LOBSTER MAN Dillan Fonseca MD LAB BLOOD ORDERABLES Final Result [facility] [address] [facility] Department [place] [address] * eGFR (05/06/2025 6:35 AM LOBSTER MAN) eGFR >90 >=60 mL/min/1. 73 m2 Comment: [...] interpretive data was last reviewed 2021. Blood 05/06/2025 6:35 AM LOBSTER MAN 05/06/2025 7:15 AM LOBSTER MAN Dillan Fonseca MD LAB BLOOD ORDERABLES Final Result [facility] [address] [facility] Department [place] [address] * (ABNORMAL) Differential, auto (05/06/2025 6:35 AM LOBSTER MAN) Pathologist [facility] Neutrophil abs 6.29 1.50 - 6.50 K/cumm Imm gran abs 0.01 0.00 - 0.10 K/cumm [facility] Lymphocyte abs 0.64(L) 0.80 - 3.30 K/cumm [facility] Monocyte abs 0.72 0.20 - 0.80 K/cumm [facility] Eosinophil abs 0.26 0.00 - 0.50 K/cumm [facility] Basophil abs 0.02 0.00 - 0.10 K/cumm [facility] Neutrophil pct 79.1 % [facility] Comment: Interpretive Data Percent cell count reference ranges are not reported, since discordance with absolute values may lead to misinterpretation of CBC data. Current Interpretive Data was last revised on 2017. Imm gran pct 0.1 % [facility] Comment: Interpretive Data Percent cell count reference ranges are not reported, since discordance with absolute values may lead to misinterpretation of CBC data. Current Interpretive Data was last revised on 2017. Lymphocyte pct 8.1 % [facility] Comment: Interpretive Data Percent cell count reference ranges are not reported, since discordance with absolute values may lead to misinterpretation of CBC data. Current Interpretive Data was last revised on 2017. Monocyte pct 9.1 % [facility] Comment: Interpretive Data Percent cell count reference ranges are not reported, since discordance with absolute values may lead to misinterpretation of CBC data. Current Interpretive Data was last revised on 2017. Eosinophil pct 3.3 % [facility] Comment: Interpretive Data Percent cell count reference ranges are not reported, since discordance with absolute values may lead to misinterpretation of CBC data. Current Interpretive Data was last revised on 2017. Basophil pct 0.3 % [facility] Comment: Interpretive Data Percent cell count reference ranges are not reported, since discordance with absolute values may lead to misinterpretation of CBC data. Current Interpretive Data was last revised on 2017. Blood 05/06/2025 6:35 AM LOBSTER MAN 05/06/2025 7:15 AM LOBSTER MAN Dillan Fonseca MD LAB BLOOD ORDERABLES Final Result Performing Organization Address City/[facility]/ZIP Co de Phone Number [place] [phone] [facility] [place] [address] * (ABNORMAL) CBC with auto differential (05/06/2025 6:35 AM LOBSTER MAN) WBC 7.94 3.80 - 9.90 K/cumm Hgb 7.8(L) 13.0 - 17.5 g/dL [facility] Hct 25.9(L) 38.9 - 50.3 % [facility] Plt 316 150 - 400 K/cumm [facility] MPV 9.9 9.1 - 12.3 fL [facility] RBC 3.03(L) 4.30 - 5.80 M/cumm [facility] MCV 85.5 81.3 - 96.4 fL [facility] MCH 25.7(L) 27.1 - 33.3 pg [facility] MCHC 30.1(L) 32.3 - 35.7 g/dL [facility] RDW CV 16.5(H) 11.1 - 14.9 % [facility] RDW SD 50.5(H) 35.7 - 48.1 fL [facility] NRBC abs 0.00 0.00 - 0.01 K/cumm [facility] Blood 05/06/2025 6:35 AM LOBSTER MAN 05/06/2025 7:15 AM LOBSTER MAN Dillan Fonseca MD LAB BLOOD ORDERABLES Final Result Performing Organization Address City/[facility]/ZIP Co de Phone Number [facility] [address] [place] [address] * Phosphorus (05/06/2025 6:35 AM LOBSTER MAN) [facility] Phosphorus, pl 3.7 2.3 - 4.5 mg/dL Blood 05/06/2025 6:35 AM LOBSTER MAN 05/06/2025 7:15 AM LOBSTER MAN Dillan Fonseca MD LAB BLOOD ORDERABLES Final Result Performing Organization Address [facility] Co de Phone Number [address] [address] * Magnesium (05/06/2025 6:35 AM LOBSTER MAN) [facility] Magnesium 2.1 1.4 - 2.5 mg/dL Blood 05/06/2025 6:35 AM LOBSTER MAN 05/06/2025 7:15 AM LOBSTER MAN Dillan Fonseca MD LAB BLOOD ORDERABLES Final Result Performing Organization Address [facility] de Phone Number [address] [address] * (ABNORMAL) Basic metabolic panel (05/06/2025 6:35 AM LOBSTER MAN) [facility] Sodium 139 135 - 145 mmol/L Potassium, pl 4.0 3.3 - 4.9 mmol/L [facility] Chloride 103 97 - 110 mmol/L [facility] CO2 29 22 - 32 mmol/L [facility] Anion gap 7 2 - 15 mmol/L [facility] BUN 18 6 - 25 mg/dL [facility] Creatinine 0.77(L) 0.80 - 1.30 mg/dL [facility] Glucose 113 70 - 199 mg/dL [facility] Comment: Interpretive Data Fasting glucose >/= 126 [...] 2022. Calcium 8.4(L) 8.5 - 10.3 mg/dL [facility] Blood 05/06/2025 6:35 AM LOBSTER MAN 05/06/2025 7:15 AM LOBSTER MAN us Dillan Fonseca MD LAB BLOOD ORDERABLES Final Result Performing Organization Address [facility] Co de Phone Number [address] [place] [address] * eGFR (05/05/2025 5:20 AM CDT) eGFR >90 >=60 mL/min/1. 73 [...] interpretive data was last reviewed 2021. Blood 05/05/2025 5:20 AM CDT 05/05/2025 5:24 AM CDT Derick Madsen MD LAB BLOOD ORDERABLES Final R esult Performing Organization Address City/[facility]/ZIP Co de Phone Number [address] Department [place] [address] * (ABNORMAL) Differential, auto (05/05/2025 5:20 AM CDT) Neutrophil abs 6.57(H) 1.50 - 6.50 K/cumm Imm gran abs 0.02 0.00 - 0.10 K/cumm [facility] Lymphocyte abs 0.52(L) 0.80 - 3.30 K/cumm [facility] Monocyte abs 0.73 0.20 - 0.80 K/cumm [facility] Eosinophil abs 0.27 0.00 - 0.50 K/cumm [facility] Basophil abs 0.02 0.00 - 0.10 K/cumm [facility] Neutrophil pct 80.9 % [facility] Comment: Interpretive Data Percent cell count reference ranges are not reported, since discordance with absolute values may lead to misinterpretation of CBC data. Current Interpretive Data was last revised on 2017. Imm gran pct 0.2 % [facility] Comment: Interpretive Data Percent cell count reference ranges are not reported, since discordance with absolute values may lead to misinterpretation of CBC data. Current Interpretive Data was last revised on 2017. Lymphocyte pct 6.4 % [facility] Comment: Interpretive Data Percent cell count reference ranges are not reported, since discordance with absolute values may lead to misinterpretation of CBC data. Current Interpretive Data was last revised on 2017. Monocyte pct 9.0 % [facility] Comment: Interpretive Data Percent cell count reference ranges are not reported, since discordance with absolute values may lead to misinterpretation of CBC data. Current Interpretive Data was last revised on 2017. Eosinophil pct 3.3 % [facility] Comment: Interpretive Data Percent cell count reference ranges are not reported, since discordance with absolute values may lead to misinterpretation of CBC data. Current Interpretive Data was last revised on 2017. Basophil pct 0.2 % [facility] Comment: Interpretive Data Percent cell count reference ranges are not reported, since discordance with absolute values may lead to misinterpretation of CBC data. Current Interpretive Data was last revised on 2017. Blood 05/05/2025 5:20 AM CDT 05/05/2025 5:24 AM CDT us Derick Madsen MD LAB BLOOD ORDERABLES Final R esult Performing Organization Address City/[facility] Co de Phone Number [facility] [address] [place] [address] * (ABNORMAL) CBC with auto differential (05/05/2025 5:20 AM CDT) [facility] WBC 8.13 3.80 - 9.90 K/cumm Hgb 7.4(L) 13.0 - 17.5 g/dL [facility] Hct 24.4(L) 38.9 - 50.3 % [facility] Plt 271 150 - 400 K/cumm [facility] MPV 9.6 9.1 - 12.3 fL [facility] RBC 2.86(L) 4.30 - 5.80 M/cumm [facility] MCV 85.3 81.3 - 96.4 fL [facility] MCH 25.9(L) 27.1 - 33.3 pg [facility] MCHC 30.3(L) 32.3 - 35.7 g/dL [facility] RDW CV 16.2(H) 11.1 - 14.9 % [facility] RDW SD 50.7(H) 35.7 - 48.1 fL [facility] NRBC abs 0.00 0.00 - 0.01 K/cumm [facility] Blood 05/05/2025 5:20 AM CDT 05/05/2025 5:24 AM CDT us Derick Madsen MD LAB BLOOD ORDERABLES Final R esult [facility] [address] [place] [address] * (ABNORMAL) Erythrocyte sedimentation rate (05/05/2025 5:20 AM CDT) Erythrocyte sedimentation rate 38(H) 1 - 20 mm/hr Blood 05/05/2025 5:20 AM CDT 05/05/2025 5:24 AM CDT us Derick Madsen MD LAB BLOOD ORDERABLES Final R esult Performing Organization Address City/[facility]/ZIP Co de Phone Number [address] [place] [address] * (ABNORMAL) Creatine kinase (CK), total (05/05/2025 5:20 AM CDT) [facility] CK 28(L) 40 - 300 Units/L Blood 05/05/2025 5:20 AM CDT 05/05/2025 5:24 AM CDT us Erik Munoz MD LAB BLOOD ORDER DIANA Final Result Performing Organization Address [facility] Co de Phone Number [address] [address] * (ABNORMAL) Comprehensive metabolic panel (05/05/2025 5:20 AM CDT) [facility] Sodium 138 135 - 145 mmol/L Potassium, pl 3.7 3.3 - 4.9 mmol/L [facility] Chloride 103 97 - 110 mmol/L [facility] CO2 28 22 - 32 mmol/L [facility] Anion gap 7 2 - 15 mmol/L [facility] BUN 19 6 - 25 mg/dL [facility] Creatinine 0.69(L) 0.80 - 1.30 mg/dL [facility] Glucose 116 70 - 199 mg/dL [facility] Comment: Interpretive Data Fasting glucose >/= 126 [...] 2022. Calcium 8.2(L) 8.5 - 10.3 mg/dL [facility] Bilirubin, total 0.3 0.1 - 1.2 mg/dL [facility] Protein, pl 5.8(L) 6.5 - 8.5 g/dL [facility] Albumin 2.8(L) 3.5 - 5.0 g/dL [facility] Alk phos 83 40 - 130 Units/L [facility] ALT 10 7 - 55 Units/L [facility] AST 16 10 - 50 Units/L [facility] Blood 05/05/2025 5:20 AM CDT 05/05/2025 5:24 AM CDT us Derick Madsen MD LAB BLOOD ORDERABLES Final R esult [facility] [address] [facility] Department [place] [address] * (ABNORMAL) CBC without differential (05/04/2025 9:57 AM CDT) WBC 8.04 3.80 - 9.90 K/cumm Hgb 7.8(L) 13.0 - 17.5 g/dL [facility] Hct 26.7(L) 38.9 - 50.3 % [facility] Plt 325 150 - 400 K/cumm [facility] MPV 9.8 9.1 - 12.3 fL [facility] RBC 3.11(L) 4.30 - 5.80 M/cumm [facility] MCV 85.9 81.3 - 96.4 fL [facility] MCH 25.1(L) 27.1 - 33.3 pg [facility] MCHC 29.2(L) 32.3 - 35.7 g/dL [facility] RDW CV 16.6(H) 11.1 - 14.9 % [facility] RDW SD 51.3(H) 35.7 - 48.1 fL [facility] NRBC abs 0.00 0.00 - 0.01 K/cumm [facility] Blood 05/04/2025 9:57 AM CDT 05/04/2025 10:01 AM CDT Dillan Fonseca MD LAB BLOOD ORDERABLES Final Result Performing Organization Address [facility] de Phone Number [facility] [address] [place] [address] * eGFR (05/04/2025 2:55 AM CDT) eGFR 90 >=60 mL/min/1. 73 [...] interpretive data was last reviewed 2021. Blood 05/04/2025 2:55 AM CDT 05/04/2025 3:06 AM CDT Erik Munoz MD LAB BLOOD ORDER DIANA Final Result Performing Organization Address [facility] Co de Phone Number [address] [place] [address] * (ABNORMAL) CBC without differential (05/04/2025 2:55 AM CDT) [facility] WBC 7.73 3.80 - 9.90 K/cumm Hgb 6.7(L) 13.0 - 17.5 g/dL [facility] Hct 22.5(L) 38.9 - 50.3 % [facility] Plt 241 150 - 400 K/cumm [facility] MPV 9.8 9.1 - 12.3 fL [facility] RBC 2.62(L) 4.30 - 5.80 M/cumm [facility] MCV 85.9 81.3 - 96.4 fL [facility] MCH 25.6(L) 27.1 - 33.3 pg [facility] MCHC 29.8(L) 32.3 - 35.7 g/dL [facility] RDW CV 16.5(H) 11.1 - 14.9 % [facility] RDW SD 51.2(H) 35.7 - 48.1 fL [facility] NRBC abs 0.00 0.00 - 0.01 K/cumm [facility] Blood 05/04/2025 2:55 AM CDT 05/04/2025 3:06 AM CDT Erik Munoz MD LAB BLOOD ORDER DIANA Final Result [facility] [address] [facility] Department [place] [address] * (ABNORMAL) Basic metabolic panel (05/04/2025 2:55 AM CDT) Sodium 138 135 - 145 mmol/L Potassium, pl 3.6 3.3 - 4.9 mmol/L [facility] Chloride 103 97 - 110 mmol/L [facility] CO2 25 22 - 32 mmol/L [facility] Anion gap 10 2 - 15 mmol/L [facility] BUN 23 6 - 25 mg/dL [facility] Creatinine 0.86 0.80 - 1.30 mg/dL [facility] Glucose 106 70 - 199 mg/dL [facility] Comment: Interpretive Data Fasting glucose >/= 126 [...] interpretive data was last revised 2022. Calcium 8.1(L) 8.5 - 10.3 mg/dL [facility] Blood 05/04/2025 2:55 AM CDT 05/04/2025 3:06 AM CDT Erik Munoz MD LAB BLOOD ORDER DIANA Final Result [facility] [address] [facility] Department [place] [address] * CT Abdomen Pelvis W Contrast (05/03/2025 6:13 PM CDT) Anatomical Region Laterality Modality Body N/A Computed Tomogra phy 05/03/2025 6:28 PM CDT Impressions 05/03/2025 6:28 PM CDT 1. Findings compatible with left initial tuberosity osteomyelitis with overlying ulceration and surrounding soft tissue infection with subcutaneous gas. 2. Additional findings; as detailed. Electronically signed by: Severiano Price M.D. 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 TECHNIQUE: Helical CT imaging of the abdomen and pelvis was performed with IV contrast. Oral contrast was not administered. Automated exposure control was used as a dose optimization technique for this examination. FINDINGS: LOWER CHEST: Mild bibasilar atelectasis and or scarring. No focal airspace consolidation. No large pleural effusion. LIVER: Several benign hepatic cysts are redemonstrated. Additional subcentimeter hepatic hypodensities are too small to characterize but statistically likely represent benign cysts and/or hemangiomas.. No suspicious lesion. GALLBLADDER/BILE DUCTS: Unremarkable. Bile ducts are unremarkable. SPLEEN: Unremarkable. PANCREAS: Diffuse atrophy of the pancreas.. No obvious mass or inflammatory change. No duct dilatation. ADRENALS: Unremarkable. KIDNEYS/URINARY TRACT: No stones. Stable subcentimeter cortical hypodensities involving the bilateral kidneys too small to adequate characterize but statistically likely representing benign cysts. No suspicious renal lesions. No hydronephrosis or hydroureter. The urinary bladder is contracted around a suprapubic catheter. GI: No dilated or thick-walled loops of bowel appreciated. Moderate to large amount of stool volume is seen scattered throughout the colon. No significant diverticular disease. PERITONEUM/RETROPERITONEUM/LYMPH NODES: No lymphadenopathy or masses. No significant ascites or free intraperitoneal air. REPRODUCTIVE: The prostate is mildly enlarged. Otherwise, unremarkable. VASCULATURE: Moderate aortoiliac atherosclerosis. No abdominal aortic aneurysm. An IVC filter is noted. Recommend of the IVC filter management plan and is not clearly established, nonemergent patient referral to an interventional condition for further evaluation. MUSCULOSKELETAL: No acute fracture. Left ischial tuberosity decubitus ulcer with underlying osseous erosion and surrounding skin thickening/soft tissue stranding with subcutaneous gas compatible with acute osteomyelitis. Soft tissue thickening and stranding seen overlying the coccyx with similar-appearing erosive changes. Skin thickening and underlying soft tissue density overlying the right initial tuberosity likely sequelae of prior decubitus ulcer. Multilevel degenerative changes of the spine. OTHER: Diffuse body wall edema/anasarca. Medical devices overlie the bilateral lower abdominal wall soft tissues. No other acute findings. 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 TECHNIQUE: Helical CT imaging of the abdomen and pelvis was performed with IV contrast. Oral contrast was not administered. Automated exposure control was used as a dose optimization technique for this examination. FINDINGS: LOWER CHEST: Mild bibasilar atelectasis and or scarring. No focal airspace consolidation. No large pleural effusion. LIVER: Several benign hepatic cysts are redemonstrated. Additional subcentimeter hepatic hypodensities are too small to characterize but statistically likely represent benign cysts and/or hemangiomas.. No suspicious lesion. GALLBLADDER/BILE DUCTS: Unremarkable. Bile ducts are unremarkable. SPLEEN: Unremarkable. PANCREAS: Diffuse atrophy of the pancreas.. No obvious mass or inflammatory change. No duct dilatation. ADRENALS: Unremarkable. KIDNEYS/URINARY TRACT: No stones. Stable subcentimeter cortical hypodensities involving the bilateral kidneys too small to adequate characterize but statistically likely representing benign cysts. No suspicious renal lesions. No hydronephrosis or hydroureter. The urinary bladder is contracted around a suprapubic catheter. GI: No dilated or thick-walled loops of bowel appreciated. Moderate to large amount of stool volume is seen scattered throughout the colon. No significant diverticular disease. PERITONEUM/RETROPERITONEUM/LYMPH NODES: No lymphadenopathy or masses. No significant ascites or free intraperitoneal air. REPRODUCTIVE: The prostate is mildly enlarged. Otherwise, unremarkable. VASCULATURE: Moderate aortoiliac atherosclerosis. No abdominal aortic aneurysm. An IVC filter is noted. Recommend of the IVC filter management plan and is not clearly established, nonemergent patient referral to an interventional condition for further evaluation. MUSCULOSKELETAL: No acute fracture. Left ischial tuberosity decubitus ulcer with underlying osseous erosion and surrounding skin thickening/soft tissue stranding with subcutaneous gas compatible with acute osteomyelitis. Soft tissue thickening and stranding seen overlying the coccyx with similar-appearing erosive changes. Skin thickening and underlying soft tissue density overlying the right initial tuberosity likely sequelae of prior decubitus ulcer. Multilevel degenerative changes of the spine. OTHER: Diffuse body wall edema/anasarca. Medical devices overlie the bilateral lower abdominal wall soft tissues. No other acute findings. IMPRESSION: 1. Findings compatible with left initial tuberosity osteomyelitis with overlying ulceration and surrounding soft tissue infection with subcutaneous gas. 2. Additional findings; as detailed. Electronically signed by: Severiano Price M.D. Joseph LAZAR IMG CT PROCEDURES Final Resu lt * Blood culture Blood Peripheral (05/03/2025 3:00 PM CDT) Report Final Report: No growth Comment:Testing performed by : [facility], [address] [facility], [place]., [address] Blood (Peripheral) 05/03/2025 3:00 PM CDT 05/03/2025 6:48 PM CDT Harris YU - 05/08/2025 7:00 AM LOBSTER MAN From a different site than #1. Draw [...] characteristics have been verified by the [facility]biology [facility]. For questions about this culture, contact the Microbiology Laboratory at [phone]. Interpretive data was last revised on 24. Mary Ellen LAZAR LAB MICROBIOLOGY - GENERAL ORDERABLES Final Result Performing Organization Address City/[facility]/ZIP Co de Phone Number [facility] [place] [address] * Sepsis Lactate w/ Reflex (05/03/2025 2:41 PM CDT) [facility] Sepsis Lactate 1.2 0.7 - 2.0 mmol/L Blood 05/03/2025 2:41 PM CDT 05/03/2025 2:46 PM CDT Joseph LAZAR LAB BLOOD ORDERABLES Final R esult [facility] [employer] [place], [place] [id number] * eGFR (05/03/2025 2:41 PM CDT) [facility] eGFR 89 >=60 mL/min/1. 73 m2 Comment: [...] interpretive data was last reviewed 2021. Blood 05/03/2025 2:41 PM CDT 05/03/2025 2:46 PM CDT Joseph LAZAR LAB BLOOD ORDERABLES Final R esult [facility] [address] [facility] Department [place] [address] * (ABNORMAL) Differential, auto (05/03/2025 2:41 PM CDT) Neutrophil abs 8.41(H) 1.50 - 6.50 K/cumm Imm gran abs 0.03 0.00 - 0.10 K/cumm [facility] Lymphocyte abs 0.73(L) 0.80 - 3.30 K/cumm [facility] Monocyte abs 1.18(H) 0.20 - 0.80 K/cumm [facility] Eosinophil abs 0.23 0.00 - 0.50 K/cumm [facility] Basophil abs 0.02 0.00 - 0.10 K/cumm [facility] Neutrophil pct 79.3 % [facility] Comment: Interpretive Data Percent cell count reference ranges are not reported, since discordance with absolute values may lead to misinterpretation of CBC data. Current Interpretive Data was last revised on 2017. Imm gran pct 0.3 % [facility] Comment: Interpretive Data Percent cell count reference ranges are not reported, since discordance with absolute values may lead to misinterpretation of CBC data. Current Interpretive Data was last revised on 2017. Lymphocyte pct 6.9 % [facility] Comment: Interpretive Data Percent cell count reference ranges are not reported, since discordance with absolute values may lead to misinterpretation of CBC data. Current Interpretive Data was last revised on 2017. Monocyte pct 11.1 % [facility] Comment: Interpretive Data Percent cell count reference ranges are not reported, since discordance with absolute values may lead to misinterpretation of CBC data. Current Interpretive Data was last revised on 2017. Eosinophil pct 2.2 % [facility] Comment: Interpretive Data Percent cell count reference ranges are not reported, since discordance with absolute values may lead to misinterpretation of CBC data. Current Interpretive Data was last revised on 2017. Basophil pct 0.2 % [facility] Comment: Interpretive Data Percent cell count reference ranges are not reported, since discordance with absolute values may lead to misinterpretation of CBC data. Current Interpretive Data was last revised on 2017. Blood 05/03/2025 2:41 PM CDT 05/03/2025 2:46 PM CDT us Joseph LAZAR LAB BLOOD ORDERABLES Final R esult [facility] [address] [facility] Department [place] [address] * (ABNORMAL) CBC with auto differential (05/03/2025 2:41 PM CDT) WBC 10.60(H) 3.80 - 9.90 K/cumm Hgb 7.8(L) 13.0 - 17.5 g/dL [facility] Hct 25.9(L) 38.9 - 50.3 % [facility] Plt 309 150 - 400 K/cumm [facility] MPV 9.9 9.1 - 12.3 fL [facility] RBC 2.98(L) 4.30 - 5.80 M/cumm [facility] MCV 86.9 81.3 - 96.4 fL [facility] MCH 26.2(L) 27.1 - 33.3 pg [facility] MCHC 30.1(L) 32.3 - 35.7 g/dL [facility] RDW CV 16.7(H) 11.1 - 14.9 % [facility] RDW SD 51.7(H) 35.7 - 48.1 fL [facility] NRBC abs 0.00 0.00 - 0.01 K/cumm [facility] Blood 05/03/2025 2:41 PM CDT 05/03/2025 2:46 PM CDT us Joseph LAZAR LAB BLOOD ORDERABLES Final R esult [facility] [address] [facility] Department [place] [address] * Blood culture Blood Peripheral (05/03/2025 2:41 PM CDT) Report Final Report: No growth Comment:Testing performed by : [facility], [address] [facility] [place] [place] [address] Blood (Peripheral) 05/03/2025 2:41 PM CDT 05/03/2025 6:48 PM CDT Narrative [facility] - 05/08/2025 7:00 AM LOBSTER MAN Draw Blood cultures before administration of Antibiotics [...] characteristics have been verified by the [facility] Microbiology [facility]. For questions about this culture, contact the Microbiology Laboratory at [phone]. Interpretive data was last revised on 24. Mary Ellen LAZAR LAB MICROBIOLOGY - GENERAL ORDERABLES Final Result Performing Organization Address [facility] Co de Phone Number [address] [place] [address] * (ABNORMAL) Erythrocyte sedimentation rate (05/03/2025 2:41 PM CDT) Pathologist [facility] [place] Erythrocyte sedimentation rate 48(H) 1 - 20 mm/hr Blood 05/03/2025 2:41 PM CDT 05/03/2025 2:46 PM CDT Joseph LAZAR LAB BLOOD ORDERABLES Final R esult Performing Organization Address [facility] Co de Phone Number [address] [address] * (ABNORMAL) CRP (acute phase) (05/03/2025 2:41 PM CDT) Pathologist [facility] [place] CRP 126.0(H) <=10.0 mg/L Blood 05/03/2025 2:41 PM CDT 05/03/2025 2:46 PM CDT Mary Ellen LAZAR LAB BLOOD ORDERABLES Final Result Performing Organization Address [facility] Co de Phone Number [address] [address] * (ABNORMAL) Creatine kinase (CK), total (05/03/2025 2:41 PM CDT) Pathologist [facility] [place] CK 26(L) 40 - 300 Units/L Blood 05/03/2025 2:41 PM CDT 05/03/2025 2:46 PM CDT Mary Ellen LAZAR LAB BLOOD ORDERABLES Final Result [facility] [address] [facility] Department [place] [address] * (ABNORMAL) Comprehensive metabolic panel (05/03/2025 2:41 PM CDT) Pathologist [facility] [place] Sodium 138 135 - 145 mmol/L Potassium, pl 4.3 3.3 - 4.9 mmol/L [facility] Chloride 101 97 - 110 mmol/L [facility] CO2 27 22 - 32 mmol/L [facility] Anion gap 10 2 - 15 mmol/L [facility] BUN 26(H) 6 - 25 mg/dL [facility] Creatinine 0.88 0.80 - 1.30 mg/dL [facility] Glucose 125 70 - 199 mg/dL [facility] Comment: Interpretive Data Fasting glucose >/= 126 [...] 2022. Calcium 8.5 8.5 - 10.3 mg/dL [facility] Bilirubin, total 0.5 0.1 - 1.2 mg/dL [facility] Protein, pl 6.4(L) 6.5 - 8.5 g/dL [facility] Albumin 3.2(L) 3.5 - 5.0 g/dL [facility] Alk phos 95 40 - 130 Units/L [facility] ALT 10 7 - 55 Units/L [facility] AST 19 10 - 50 Units/L [facility] Blood 05/03/2025 2:41 PM CDT 05/03/2025 2:46 PM CDT Joseph LAZAR LAB BLOOD ORDERABLES Final R esult [facility] [address] [facility] Department [place] [address] * CT Abdomen Pelvis W Contrast (03/14/2025 [...] Lai Costa M.D. AR: SANTY Report ID: [id number] Reading Location: [id number] Narrative 03/14/2025 8:31 PM CDT EXAM DESCRIPTION: [...] Lai Costa M.D. AR: SANTY Report ID: [id number] Reading Location: [id number] Procedure Note Lai Costa MD - 03/14/2025 [...] Lai Costa M.D. AR: SANTY Report ID: [id number] Reading Location: [place] [address] PROCEDURES Edited Result - Final * [...] BLOOD ORDERABLES Final Resu lt [facility] ([place]) [address] [facility] Department [place] [address] * (ABNORMAL) Differential, auto (03/14/2025 6:17 PM [...] LAB BLOOD ORDERABLES Final Resu lt [facility] ([place]) [address] [facility] Department of Laboratories [place] [id number] * (ABNORMAL) Urinalysis reflex to microscopic and culture Urine, indwelling catheter (03/14/2025 6:17PM CDT) Color, ur Yellow Yellow Clarity, ur Turbid(A) Clear [facility] A ([place]) Specific gravity, ur 1.016 1.003 - 1.030 [facility] ([place]) pH, urine 5.5 [facility] ([place]) Comment: Interpretive Data U rine pH is affected by diet, medications, systemic acid-base disturbances, and renal tubular function. pH may affect urinary stone formation. For example, urine pH below 6.0 may help reduce the tendency for calcium phosphate stones and pH greater than 6.0 may reduce the tendency for uric acid stone formation. Source: [facility] [employer] Current Interpretive Data was last revised on [...] MICROBIOLOGY - GENERAL ANTONIO WALKER Final Result [facility] ([place] [address] [facility] Department [place] [address] * (ABNORMAL) CBC with auto differential (03/14/2025 [...] NRBC abs 0.00 0.00 - 0.01 K/cumm [facility] ([place]) Blood 03/14/2025 6:17 PM CDT 03/14/2025 6:21 PM CDT Jess LAZAR LAB BLOOD ORDERABLES Final Resu lt Performing Organization Address City/[facility] Co de Phone Number [facility] ([place]) [address] [facility] [employer] [place] [address] * (ABNORMAL) Urinalysis, microscopic only (03/14/2025 6:17 PM CDT) WBC, ur >50(A) 0 - 5 /HPF RBC, ur 6-10(A) 0 - 2 /HPF [facility] ([place]) Epithelial cells, squamous, ur 1-5 0 - 5 /HPF [facility] ([place]) Bacteria, ur Trace(A) [facility] ([place]) Mucous, ur Present(A) [facility] A ([place]) Culture Reflex Comment Reflex to urine culture will be performed. [facility]WE[facility] ([place]) Urine, indwelling catheter 03/14/2025 6:17 PM CDT 03/14/2025 6:21 PM CDT Jess LAZAR LAB URINE ORDERABLES Final Resu lt Performing Organization Address City/[facility] Co de Phone Number FRANKIEPRUDENCIO [facility] ([place]) [address] [facility] [place] [address] * (ABNORMAL) Urine culture Urine, indwelling catheter (03/14/2025 6:17 PM CDT) Report Final Report: Greater than or equal to 100,000 colonies/mL of Staphylococcus aureus Methicillin resistant (MRSA) by penicillin binding protein 2a (PBP2a) testing. Plus growth of clinically insignificant bacterial sandra. (.) Comment:Testing performed by : [facility], [address] [facility] [address] Organism STAPHYLOCOCCUS AUREUS [facility] ([place]) Organism PLUS GROWTH OF CLINICALLY INSIGNIFICANT SANDRA. [facility] ([place]) Urine, indwelling catheter 03/14/2025 6:17 PM CDT 03/14/2025 9:57 PM CDT Narrative [facility] ([place]) - 03/17/2025 2:55 PM CDT Urine culture reflexed based upon urinalysis results. Testing performed by [facility]biology [facility] ([phone]) Organism Antibiotic Method Susceptibility Staphylococcus aureus Vancomycin INTERPRETATION Susceptible Staphylococcus aureus Ceftaroline INTERPRETATION Susceptible Staphylococcus aureus Trimethoprim with Sulfamethoxazole INTERPRETATION Susceptible Staphylococcus aureus Linezolid INTERPRETATION Susceptible Staphylococcus aureus Doxycycline INTERPRETATION Susceptible Staphylococcus aureus Nitrofurantoin INTERPRETATION Susceptible Staphylococcus aureus Oxacillin INTERPRETATION Resistant Staphylococcus aureus Cefazolin INTERPRETATION Resistant Staphylococcus aureus Ceftriaxone INTERPRETATION Resistant Jess LAZAR LAB MICROBIOLOGY - GENERAL ANTONIO WALKER Final Result [facility] ([place]) [address] [facility] Department [place] [address] * (ABNORMAL) Comprehensive metabolic panel (03/14/2025 6:17 PM CDT) Sodium 136 135 - 145 mmol/L [facility] ([place]) Potassium, pl 3.5 3.3 - 4.9 mmol/L [facility] ([place]) Chloride 97 97 - 110 mmol/L [facility] ([place]) CO2 29 22 - 32 mmol/L [facility] ([place]) Anion gap 10 2 - 15 mmol/L [facility] ([place]) BUN 20 6 - 25 mg/dL [facility] ([place]) Creatinine 0.67(L) 0.80 - 1.30 mg/dL [facility] ([place]) Glucose 134 70 - 199 mg/dL [facility] ([place]) Comment: Interpretive Data Fasting glucose [...] Final Resu lt [facility] ([place]) [address] [facility] Department [place] [address] * Antibody identification (03/05/2025 12:31 AM CDT) Pathologist [facility] [place] Antibody ID 1 Anti Little e Blood 03/05/2025 12:3 1 AM CDT 03/05/2025 12:32 AM CDT Marilyn Morgan MD LAB BLOOD BANK TEST ORDERABLES F inal Result [facility] Department [place] [address] * eGFR (03/04/2025 11:12 PM CDT) eGFR [...] NP LAB BLOOD ORDERABLES Fin al Result [facility] [address] [facility] [place] [address] * (ABNORMAL) CBC without differential (03/04/2025 11:12 PM CDT) WBC 11.79(H) 3.80 - 9.90 K/cumm Hgb 9.1(L) 13.0 - 17.5 g/dL [facility] Hct 29.9(L) 38.9 - 50.3 % [facility] Plt 267 150 - 400 K/cumm [facility] MPV 10.2 9.1 - 12.3 fL [facility] RBC 3.30(L) 4.30 - 5.80 M/cumm [facility] MCV 90.6 81.3 - 96.4 fL [facility] MCH 27.6 27.1 - 33.3 pg [facility] MCHC 30.4(L) 32.3 - 35.7 g/dL [facility] RDW CV 15.9(H) 11.1 - 14.9 % [facility] RDW SD 51.3(H) 35.7 - 48.1 fL [facility] NRBC abs 0.00 0.00 - 0.01 K/cumm [facility] Blood 03/04/2025 11:1 2 PM CDT 03/04/2025 11:33 PM CDT Lucy Ho WHEEL TUNER LAB BLOOD ORDERABLES Fin al Result Performing Organization Address [facility] de Phone Number [facility] [place] [address] * (ABNORMAL) Type and screen (03/04/2025 11:12 PM CDT) [facility] ABO Rh O Positive Bonifacio, indirect Positive(A) [facility] Blood 03/04/2025 11:1 2 PM CDT 03/04/2025 11:23 PM CDT Narrative [facility] - 03/05/2025 12:32 AM CDT Has the patient had Daratumumab or Isatuximab in the past 6 months?->Unknown Marilyn Morgan MD LAB BLOOD BANK TEST ORDERABLES F inal Result Performing Organization Address [facility] de Phone Number [facility] [place] [address] * (ABNORMAL) Basic metabolic panel (03/04/2025 11:12 PM CDT) [facility] Sodium 142 135 - 145 mmol/L Potassium, pl 4.2 3.3 - 4.9 mmol/L [facility] Chloride 100 97 - 110 mmol/L [facility] CO2 35(H) 22 - 32 mmol/L [facility] Anion gap 7 2 - 15 mmol/L [facility] BUN 12 6 - 25 mg/dL [facility] Creatinine 0.81 0.80 - 1.30 mg/dL [facility] Glucose 105 70 - 199 mg/dL [facility] Comment: [...] 2022. Calcium 8.8 8.5 - 10.3 mg/dL [facility] Blood 03/04/2025 11:1 2 PM CDT 03/04/2025 11:33 PM CDT Lucy Ho NP LAB BLOOD ORDERABLES Fin al Result [facility] Department [place] [address] * eGFR (03/03/2025 10:44 PM CDT) eGFR [...] CDT 03/03/2025 11:34 PM CDT Lucy Ho WHEEL TUNER LAB BLOOD ORDERABLES Fin al Result Performing Organization Address [facility] Co de Phone Number [facility] [place] [address] * (ABNORMAL) CBC without differential (03/03/2025 10:44 PM CDT) WBC 9.58 3.80 - 9.90 K/cumm Hgb 8.3(L) 13.0 - 17.5 g/dL [facility] Hct 26.4(L) 38.9 - 50.3 % [facility] Plt 263 150 - 400 K/cumm [facility] MPV 10.4 9.1 - 12.3 fL [facility] RBC 2.97(L) 4.30 - 5.80 M/cumm [facility] MCV 88.9 81.3 - 96.4 fL [facility] MCH 27.9 27.1 - 33.3 pg [facility] MCHC 31.4(L) 32.3 - 35.7 g/dL [facility] RDW CV 15.5(H) 11.1 - 14.9 % [facility] RDW SD 49.8(H) 35.7 - 48.1 fL [facility] NRBC abs 0.00 0.00 - 0.01 K/cumm [facility] Blood 03/03/2025 10:4 4 PM CDT 03/03/2025 11:34 PM CDT Lucy Ho WHEEL TUNER LAB BLOOD ORDERABLES Fin al Result [facility] [place] [address] * Phosphorus (03/03/2025 10:44 PM CDT) Pathologist [facility] [place] Phosphorus, pl 3.5 2.3 - 4.5 mg/dL Blood 03/03/2025 10:4 4 PM CDT 03/03/2025 11:33 PM CDT Lucy Ho WHEEL TUNER LAB BLOOD ORDERABLES Fin al Result [facility] [place] [address] * Magnesium (03/03/2025 10:44 PM CDT) Pathologist [facility] [place] Magnesium 2.3 1.4 - 2.5 mg/dL Blood 03/03/2025 10:4 4 PM CDT 03/03/2025 11:33 PM CDT Lucy Ho WHEEL TUNER LAB BLOOD ORDERABLES Fin al Result Performing Organization Address [facility] Co de Phone Number [facility] [place] [address] * (ABNORMAL) Basic metabolic panel (03/03/2025 10:44 PM CDT) [facility] Sodium 142 135 - 145 mmol/L Potassium, pl 4.3 3.3 - 4.9 mmol/L [facility] Chloride 101 97 - 110 mmol/L [facility] CO2 35(H) 22 - 32 mmol/L [facility] Anion gap 6 2 - 15 mmol/L [facility] BUN 10 6 - 25 mg/dL [facility] Creatinine 0.77(L) 0.80 - 1.30 mg/dL [facility] Glucose 99 70 - 199 mg/dL [facility] Comment: [...] 2022. Calcium 8.6 8.5 - 10.3 mg/dL [facility] Blood 03/03/2025 10:4 4 PM CDT 03/03/2025 11:34 PM CDT Lucy Ho NP LAB BLOOD ORDERABLES Fin al Result Performing Organization Address [facility] Co de Phone Number [facility] [place] [address] * eGFR (03/02/2025 11:52 PM CDT) eGFR [...] ORDERABLES Fin al Result Performing Organization Address [facility] Co de Phone Number [facility] Department [place] [address] * (ABNORMAL) CBC without differential (03/02/2025 11:52 PM CDT) WBC 11.35(H) 3.80 - 9.90 K/cumm Hgb 8.1(L) 13.0 - 17.5 g/dL [facility] Hct 26.9(L) 38.9 - 50.3 % [facility] Plt 230 150 - 400 K/cumm [facility] MPV 10.4 9.1 - 12.3 fL [facility] RBC 2.90(L) 4.30 - 5.80 M/cumm [facility] MCV 92.8 81.3 - 96.4 fL [facility] MCH 27.9 27.1 - 33.3 pg [facility] MCHC 30.1(L) 32.3 - 35.7 g/dL [facility] RDW CV 15.5(H) 11.1 - 14.9 % [facility] RDW SD 52.4(H) 35.7 - 48.1 fL [facility] NRBC abs 0.00 0.00 - 0.01 K/cumm [facility] Blood 03/02/2025 11:5 2 PM CDT 03/03/2025 12:07 AM CDT us Lucy Ho WHEEL TUNER LAB BLOOD ORDERABLES Fin al Result [facility] [place] [address] * (ABNORMAL) CBC without differential (03/02/2025 11:52 PM CDT) Pathologist [facility] [place] WBC 11.11(H) 3.80 - 9.90 K/cumm Hgb 8.0(L) 13.0 - 17.5 g/dL [facility] Hct 26.9(L) 38.9 - 50.3 % [facility] Plt 233 150 - 400 K/cumm [facility] MPV 10.4 9.1 - 12.3 fL [facility] RBC 2.91(L) 4.30 - 5.80 M/cumm [facility] MCV 92.4 81.3 - 96.4 fL [facility] MCH 27.5 27.1 - 33.3 pg [facility] MCHC 29.7(L) 32.3 - 35.7 g/dL [facility] RDW CV 15.5(H) 11.1 - 14.9 % [facility] RDW SD 51.9(H) 35.7 - 48.1 fL [facility] NRBC abs 0.00 0.00 - 0.01 K/cumm [facility] Blood 03/02/2025 11:5 2 PM CDT 03/03/2025 12:08 AM CDT Lucy oH WHEEL TUNER LAB BLOOD ORDERABLES Fin al Result Performing Organization Address City/[facility] Co de Phone Number [facility] [place] [address] * Phosphorus (03/02/2025 11:52 PM CDT) Phosphorus, pl 3.3 2.3 - 4.5 mg/dL Blood 03/02/2025 11:5 2 PM CDT 03/03/2025 12:08 AM CDT Lucy Ho NP LAB BLOOD ORDERABLES Fin al Result Performing Organization Address [facility] de Phone Number [facility] [place] [address] * Magnesium (03/02/2025 11:52 PM CDT) Magnesium 2.2 1.4 - 2.5 mg/dL Blood 03/02/2025 11:5 2 PM CDT 03/03/2025 12:08 AM CDT Lucy Ho NP LAB BLOOD ORDERABLES Fin al Result Performing Organization Address [facility] Co de Phone Number [facility] Department [place] [address] * (ABNORMAL) Basic metabolic panel (03/02/2025 11:52 PM CDT) Sodium 142 135 - 145 mmol/L Potassium, pl 4.2 3.3 - 4.9 mmol/L [facility] Chloride 101 97 - 110 mmol/L [facility] CO2 36(H) 22 - 32 mmol/L [facility] Anion gap 5 2 - 15 mmol/L [facility] BUN 11 6 - 25 mg/dL [facility] Creatinine 0.71(L) 0.80 - 1.30 mg/dL [facility] Glucose 101 70 - 199 mg/dL [facility] Comment: [...] 2022. Calcium 8.5 8.5 - 10.3 mg/dL [facility] Blood 03/02/2025 11:5 2 PM CDT 03/03/2025 12:08 AM CDT us Lucy Ho NP LAB BLOOD ORDERABLES [facility] al Result Performing Organization Address City/State/[facility] Co de Phone Number [facility] [place] [address] * US Vein Duplex Lower Extremity Bilateral Complete (03/02/2025 4:55 PM CDT) Anatomical Region Laterality Modality Vascular Bilateral Ultrasound 03/02/2025 4:23 PM CDT Narrative 03/02/2025 6:14 PM CDT [employer] - Department of Vascular Surgery, Vascular Laboratory [address] [place] [id number] Lower Extremity Venous Ultrasound Report Patient Name: JEROME ASKEW : 1950 (74y 11m) Study Date: 03/02/2025 4:23:44 PM Gender: M Tech: Location: [id number] Ref Provider: LIZA TRAYLOR Quality: Adequate Order [...] INDICATIONS: Swelling lower extremity, bilateral. FINDINGS: Performing [employer]liance [employer] Counter Clerk: Mariaelena Gill RVT. Bilateral: Venous Doppler signals [...] above. Electronically Signed By: Pritesh Contreras MD [facility] [phone] 03/02/2025 5:36:36 PM CDT Procedure Note Pritesh Contreras MD - 03/02/2025 [facility] - Department of Vascular Surgery,Vascular Laboratory [address] [place] [address] Lower Extremity Venous Ultrasound Report Patient Name: JEROME ASKEW : 1950 (74y 11m) Study Date: 03/02/2025 4:23:44 PM Gender: M Tech: Location: [id number] Ref Provider: ILZA TRAYLOR Quality: Adequate Order Provider: LIZA TRAYLOR PROCEDURES: Vascular Report: Venous Duplex imaging was performed bilaterally in the lower extremities.The common femoral, femoral, popliteal, posterior tibial, peroneal veins wereevaluated for patency, spontaneity and phasicity with Doppler, compression and augmentationmaneuvers. Great saphenous vein proximal at the junction was evaluated with compressionmaneuvers. INDICATIONS: Swelling lower extremity, bilateral. FINDINGS: Performing [employer] Counter Clerk: Mariaelena Gill RVT. Bilateral: Venous Doppler signals [...] above. Electronically Signed By: Pritesh Contreras MD [facility] [phone] 03/02/2025 5:36:36 PM CDT Liza Traylor MD [facility] [place] PROCEDURES Final Result * (ABNORMAL) POC Blood Gas and Chemistries, Venous - (03/02/2025 1:56 PM CDT) pH, Cas POC 7.40 7.32 - 7.43 pCO2, cas POC 61(H) 40 - 50 mmHg [facility] pO2, cas POC 42 mmHg [facility] Na, POC 142 135 - 145 mmol/L [facility] K POC 4.2 3.3 - 4.9 mmol/L [facility] Comment: Interpretive Data Not all point of care methods assess for hemolysis. Confirm with instrument and retest K+ if not consistent with clinical signs and symptoms. Current Interpretive Data was last revised on 2023. Cl, POC 108 97 - 110 mmol/L [facility] Ionized Ca, POC 4.59 4.50 - 5.10 mg/dL [facility] Glucose, POC 100 70 - 199 mg/dL [facility] Lactate POC 1.0 0.7 - 2.0 mmol/L [facility] O2 Sat, Cas POC (Mel[place]) 71 % [facility] Base excess, POC 11.5 mmol/L [facility] HCO3, Cas POC 38(H) 20 - 30 mmol/L [facility] Hct, POC 24.0(L) 41.4 - 51.6 % [facility] Total Hb, POC 8.0(L) 13.8 - 17.2 g/dL [facility] Blood 03/02/2025 1:56 PM CDT 03/02/2025 1:56 PM CDT us Liza Traylor MD LAB POCT ORDERABLES - DE VICE Final Result [facility] [place] [address] * (ABNORMAL) Tissue aerobic and anaerobic culture and gram stain Tissue Buttocks (03/02/2025 11:43 AMCDT) Direct Specimen Exam Stain: No polymorphonuclear leukocytes seen. Abundant Gram Variable Bacilli Abundant Gram Positive Cocci Report Final Report: Few Mixed aerobic and anaerobic microorganisms Includes the following: Few Bacteroides fragilis (.) [facility] Organism MIXED AEROBIC AND ANAEROBIC MICROORGANISMS [facility] Organism BACTEROIDES FRAGILIS [facility] Tissue (Buttocks) 03/02/2025 11:43 AM CDT 03/02/2025 2:05 PM CDT Narrative [facility] - 03/05/2025 1:23 PM CDT Deep tissue left buttocks wound Testing performed by [facility] Microbiology Laboratory ([phone]) Specimens submitted from normally sterile body sites [...] MICROBIOLOGY - G ENERAL ORDERABLES Final Result [facility] [place] [address] * Continuous Video EEG (03/02/2025 9:46 AM CDT) Anatomical Region Laterality Modality EEG Narrative 03/02/2025 10:16 AM CDT Video-EEG Report Patient Name: Jerome Askew [facility] Medical Record Number (MRN): [id number] [facility] Record: [id number] Date of (): 1950 Ordering Provider: Colin [...] digital EEG were recorded continuously with a ClasesD EEG acquisition system. This was a 32 [...] AM CDT Narrative 03/02/2025 9:18 AM CDT [facility] [place] [address] Transthoracic Echocardiographic Report Patient Name: JEROME ASKEW R : 1950 (74y 11m) Sex: M Study Date: 03/02/2025 07:44:43 AM Ht(Inch): 75 Wt(Lb): 179.01 BSA: 2.07 [employer] Counter Clerk: Ale Alexander Location: [id number] Order Provider: MARILYN MORGAN Heart Rate: 73 [...] Procedure Note Cristóbal May MD - 03/02/2025 [facility] [place] [address] Transthoracic Echocardiographic Report Patient Name: JEROME ASKEW R : 1950 (74y 11m) Sex: M Study Date: 03/02/2025 07:44:43 AM Ht(Inch): 75 Wt(Lb): 179.01 BSA: 2.07 [employer] Counter Clerk: Ale Alexander Location: [id number] Order Provider:MARILYN MORGAN Heart Rate: 73 BMI: [...] LA Length 4C 6.49 cm MV Decel Dxru916.48 msec [ 104.00 - 258.00 ] LA [...] cm [ 1.71 - 5.00 ] RA Qgsrji10.63 ml RA Volume Index16.71 ml/m2 IVC Diam2.11 [...] Units (03/02/2025 8:19 AM CDT) Product code [id number] [facility] Unit Number [id number] 8-U [facility] Product Blood Type OPOS [facility] Dispense Status RETURNED [facility] Product code [id number] Unit Number [id number] 3-F [facility] Product Blood Type OPOS [facility] Dispense Status RETURNED [facility] Blood 03/02/2025 8:19 AM CDT 03/02/2025 8:19 AM CDT Narrative [facility] - 03/05/2025 12:08 AM CDT Are special requirements needed? 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 Joyce Wright WHEEL TUNER IMG CT PROCEDURES Fin al Result * Antibody identification (03/01/2025 9:23 PM CDT) Antibody ID 1 Anti Little e Blood 03/01/2025 9:23 PM CDT 03/01/2025 9:23 PM CDT Marilyn Morgan MD LAB BLOOD BANK TEST ORDERABLES F inal Result [facility] Department [place] [address] * eGFR (03/01/2025 8:02 PM CDT) eGFR [...] CDT 03/01/2025 8:27 PM CDT Lucy Ho WHEEL TUNER LAB BLOOD ORDERABLES Fin al Result Performing Organization Address [facility] Co de Phone Number [facility] [place] [address] * aPTT (03/01/2025 8:02 PM CDT) aPTT [...] ORDERABLES Final Resul t Performing Organization Address [facility] Co de Phone Number [facility] [place] [address] * Protime-INR (03/01/2025 8:02 PM CDT) PT 13.4 10.2 - 13.5 sec INR 1.19 0.90 - 1.20 [facility] Comment: Interpretive data Oral anticoagulant therapeutic [...] ORDERABLES Final Resul t Performing Organization Address [facility] Co de Phone Number [facility] [place] [address] * (ABNORMAL) CBC without differential (03/01/2025 8:02 PM CDT) WBC 8.66 3.80 - 9.90 K/cumm Hgb 7.8(L) 13.0 - 17.5 g/dL [facility] Hct 25.9(L) 38.9 - 50.3 % [facility] Plt 200 150 - 400 K/cumm [facility] MPV 10.6 9.1 - 12.3 fL [facility] RBC 2.82(L) 4.30 - 5.80 M/cumm [facility] MCV 91.8 81.3 - 96.4 fL [facility] MCH 27.7 27.1 - 33.3 pg [facility] MCHC 30.1(L) 32.3 - 35.7 g/dL [facility] RDW CV 15.5(H) 11.1 - 14.9 % [facility] RDW SD 52.6(H) 35.7 - 48.1 fL [facility] NRBC abs 0.00 0.00 - 0.01 K/cumm [facility] Blood 03/01/2025 8:02 PM CDT 03/01/2025 8:27 PM CDT Lucy Ho NP LAB BLOOD ORDERABLES Fin al Result Performing Organization Address City/[facility]/ZIP Co de Phone Number [facility] Department of [employer] [place], [place] [id number] * (ABNORMAL) Type and screen (03/01/2025 8:02 PM CDT) Bonifacio, indirect Positive(A) ABO Rh O Positive [facility] Blood 03/01/2025 8:02 PM CDT 03/01/2025 8:26 PM CDT Narrative [facility] - 03/01/2025 9:23 PM CDT Has the patient had Daratumumab or Isatuximab in the past 6 months?->Unknown Marilyn Morgan MD LAB BLOOD BANK TEST ORDERABLES F inal Result [facility] [place] [address] * (ABNORMAL) Basic metabolic panel (03/01/2025 8:02 PM CDT) [facility] Sodium 146(H) 135 - 145 mmol/L Potassium, pl 4.4 3.3 - 4.9 mmol/L [facility] Chloride 106 97 - 110 mmol/L [facility] CO2 34(H) 22 - 32 mmol/L [facility] Anion gap 6 2 - 15 mmol/L [facility] BUN 13 6 - 25 mg/dL [facility] Creatinine 0.72(L) 0.80 - 1.30 mg/dL [facility] Glucose 134 70 - 199 mg/dL [facility] Comment: [...] 2022. Calcium 7.9(L) 8.5 - 10.3 mg/dL [facility] Blood 03/01/2025 8:02 PM CDT 03/01/2025 8:27 PM CDT us Lucy Ho NP LAB BLOOD ORDERABLES Fin al Result Performing Organization Address City/[facility]/ZIP Co de Phone Number [facility] [place] [address] * CORRECTIVE AND MANUAL ARTS THERAPIST Evaluate and Treat (FEES) (03/01/2025 11:34 AM CDT) Harris DAVIS - 03/01/2025 11:34 AM CDT Zohreh Petersen, [...] diet/thin liquids General Information Jerome Askew 03/01/25 CORRECTIVE AND MANUAL ARTS THERAPIST Received On: 03/01/25 General Observations: Pt seen sitting upright in bed, alert, cooperative, able to follow simple commands. Pain Score: 0 If pain >4, was RN notified? N/A Patient Stated Goal/Comments: Pt did not state any ST related goals/comments. Clinical Impression & Professional Recommendations Diet Solids Recommendation: Dysphagia diet-Soft (tender/chopped meat) Diet Liquids Recommendations: [place] thick (No ice in drinks, no ice [...] deficits Secretions: Minimal Consistencies Administered: Thin liquids, [place] thick liquids, Purees, Solids Thin Liquids: Laryngeal Penetration: Present Aspiration Present: Yes Timing: Before Amount: Moderate Response to aspiration: None Cough: Non-productive Unsuccessful Modifications: Chin tuck, Repeat swallow, Cough Penetration Aspiration Scale-Thin: 8-Material enters the airway, passes below the vocal folds and no effort is made to eject [place] Scale-Vallecular Residue-Thin Liquids: Mild [place] Scale-Pyriform Sinus Residue-Thin Liquids: Mild [place] Thickened Liquids: Laryngeal Penetration: None Aspiration Present: No Penetration Aspiration Scale-[place]: 1-Material does not enter airway [place] Scale-Vallecular Residue-[place] Thickened Liquids: Mild [place] Scale-Pyriform Sinus Residue-[place] Thickened Liquids: Mild Purees: Laryngeal Penetration: None Aspiration Present: No Successful Modifications: Alternated liquids and solids Penetration Aspiration Scale-Puree: 1-Material does not enter airway Noemí Scale-Vallecular Residue-Puree: Moderate [place] Scale-Pyriform Sinus Residue-Puree: Mild Solids: Laryngeal Penetration: None Aspiration Present: No Successful Modifications: Alternated liquids and solids Penetration Aspiration Scale-Solids: 1-Material does not enter airway [place] Scale-Vallecular Residue-Solids: Moderate [place] Scale-Pyriform Sinus Residue-Solids: Mild Dysphagia Outcome and Severity Scale: Dysphagia Outcomes and Severity Scale: 3 Moderate dysphagia Levels 1 & 2 on the PATRICK indicate need for nonoral nutrition. Treatment Treatment was not provided this date. Please reference care plan for treatment goals and details, if indicated. Plan CORRECTIVE AND MANUAL ARTS THERAPIST Frequency of Services during current admission: 2-3x/wk CORRECTIVE AND MANUAL ARTS THERAPIST Recommendation (Add'l Services): Senior Care Facility Next Visit Plan:treatment/therapy Additional Referrals: PT/OT Discharge Summary Statement If this is the last swallow therapy visit, this serves as the discharge summary. us Marilyn Morgan MD CORRECTIVE AND MANUAL ARTS THERAPIST ORDERABLES Final Result [facility] * (ABNORMAL) CBC without differential (03/01/2025 5:45 AM CDT) WBC 10.25(H) 3.80 - 9.90 K/cumm Hgb 8.7(L) 13.0 - 17.5 g/dL [facility] Hct 28.1(L) 38.9 - 50.3 % [facility] Plt 226 150 - 400 K/cumm [facility] MPV 10.6 9.1 - 12.3 fL [facility] RBC 3.12(L) 4.30 - 5.80 M/cumm [facility] MCV 90.1 81.3 - 96.4 fL [facility] MCH 27.9 27.1 - 33.3 pg [facility] MCHC 31.0(L) 32.3 - 35.7 g/dL [facility] RDW CV 15.4(H) 11.1 - 14.9 % [facility] RDW SD 50.7(H) 35.7 - 48.1 fL [facility] NRBC abs 0.00 0.00 - 0.01 K/cumm [facility] Blood 03/01/2025 5:45 AM CDT 03/01/2025 6:01 AM CDT us Lucy Ho NP LAB BLOOD ORDERABLES Fin al Result [facility] [place] [address] * CT Head WO Contrast (03/01/2025 5:22 [...] ur Straw Yellow Clarity, ur Clear Clear [facility] Specific gravity, ur >1.042(H) 1.003 - 1.030 [facility] pH, urine 6.0 [facility] Comment: Interpretive Data U rine pH is affected by diet, medications, systemic acid-base disturbances, and renal tubular function. pH may affect urinary stone formation. For example, urine pH below 6.0 may help reduce the tendency for calcium phosphate stones and pH greater than 6.0 may reduce the tendency for uric acid stone formation. Source: [employer] Current Interpretive Data was last revised on 2017 Protein, ur ql Trace Negative [facility] Glucose, ur ql Negative Negative [facility] Ketones, ur Negative Negative [facility] Bilirubin, ur Negative Negative [facility] Blood, ur Negative Negative [facility] Urobilinogen, ur <2.0 <2.0 mg/dL [facility] Nitrite, ur Negative Negative [facility] Leukocyte esterase, ur Negative Negative [facility] UA reflex comment Reflex conditions for microscopic UA and culture not met. [facility] Urine, indwelling catheter 03/01/2025 3:09 AM CDT 03/01/2025 3:35 AM CDT Lucy Ho NP LAB MICROBIOLOGY - [facility] AL ORDERABLES Final Result [facility] [place] [address] * Respiratory pathogen panel Nasopharyngeal (03/01/2025 3:09 AM CDT) Pathologist [facility] [place] Influenza A RNA Not Detected Not Detected [...] Not Detected Not Detected [facility] Nasopharyngeal 03/01/2025 3: 09 AM CDT 03/01/2025 3:44 AM CDT Harris YU [facility] - 03/01/2025 4:42 AM CDT Is the Patient experiencing symptoms consistent with COVID?->No Surveillance testing for transplant patient?->No Interpretive Data The [employer] FilmArray Respiratory Panel (RP2.1) assay is a [...] assay has FDA clearance for testing of WHEEL TUNER swabs. The performance of additional specimen types has been assessed by the performing laboratory. The performance characteristics of this assay have been determined by [facility] Molecular Infectious Disease Laboratory. Current interpretive data was last revised on 22. Lucy Ho WHEEL TUNER LAB MICROBIOLOGY - GENER AL ORDERABLES Final Result Performing Organization Address [facility]/ZIP Co de Phone Number [facility] Department [place] [address] * Blood culture Blood (03/01/2025 3:09 AM CDT) Report Final Report: No growth Blood 03/01/2025 3:09 AM CDT 03/01/2025 3:37 AM CDT Harris [facility]ALE[facility] - 03/05/2025 7:00 AM CDT Collection->Peripheral [...] characteristics have been verified by the [facility] Microbiology Laboratory. For questions about this culture, contact the Microbiology Laboratory at [phone]. Interpretive data was last revised on 24. Lucy Ho LAB MICROBIOLOGY - GENER AL ORDERABLES Final Result Performing Organization Address [facility] Co de Phone Number [facility] Department [place] [address] * Blood culture Blood (03/01/2025 3:09 AM [...] characteristics have been verified by the [facility] Microbiology Laboratory. For questions about this culture, contact the Microbiology Laboratory at [phone]. Interpretive data was last revised on 24. Lucy Ho NP LAB MICROBIOLOGY - GENER AL ORDERABLES Final Result [facility] [place] [address] * Antibody identification (02/28/2025 8:47 PM CDT) Antibody ID 1 Anti Little e Blood 02/28/2025 8:47 PM CDT 02/28/2025 8:47 PM CDT us Lucy Ho NP LAB BLOOD BANK TEST ANTONIO WALKER Final Result Performing Organization Address City/[facility]/ZIP Co de Phone Number [facility] [place] [address] * ECG 12 lead (02/28/2025 8:02 PM CDT) Ventricular Rate EKG/Min 63 BPM [facility] Atrial Rate 63 BPM [facility] ID-Interval (MSEC) 218 ms [facility] QRS-Interval (MSEC) 92 ms [facility] QT-Interval (MSEC) 398 ms [facility] QTc 407 ms [facility] P [place] 49 degrees [facility] R [place] -25 degrees [facility] T [place] 10 degrees [facility] Diagnosis Sinus rhythm with 1st degree A-V block Minimal voltage criteria for LVH, may be normal variant Borderline ECG When compared with ECG of 08-APR-2023 12:02, Previous ECG has undetermined rhythm, needs review QRS duration has increased ST no longer depressed in Inferior leads T wave inversion no longer evident in Inferior leads Confirmed by MIRA SAENZ M.D ([id number]) on 03/01/2025 5:26:48 PM [facility] 02/28/2025 8:02 PM CDT 03/01/2025 5:26 PM CDT Lucy Ho NP ECG ORDERABLES Final Re sult Performing Organization Address [facility]/ZIP Co de Phone Number [facility] * XR chest 1 view [...] NP LAB BLOOD ORDERABLES Fin al Result [facility] [place] [address] * eGFR (02/28/2025 7:42 PM CDT) eGFR [...] NP LAB BLOOD ORDERABLES Fin al Result [facility] [place] [address] * aPTT (02/28/2025 7:42 PM CDT) aPTT 32 26 - 38 sec Comment: Interpretive Data Heparin therapeutic range: 66.0 - 100.0 seconds. Range based on correlation with therapeutic heparin activity range of 0.3 - 0.7 Units/mL. Current interpretive data was last revised on 2023. Blood 02/28/2025 7:42 PM CDT 02/28/2025 7:57 PM CDT us Lucy Ho WHEEL TUNER LAB BLOOD ORDERABLES Fin al Result Performing Organization Address [facility] [place] [address] * Protime-INR (02/28/2025 7:42 PM CDT) [facility] PT 13.3 10.2 - 13.5 sec INR 1.18 0.90 - 1.20 [facility] Comment: Interpretive data Oral anticoagulant therapeutic ranges: Venous thromboembolism prophylaxis or treatment: 2.0-3.0 CARDIOLOGY Standard range: 2.0-3.0 High-intensity range: 2.5-3.5 Refer to indication-specific guidelines for appropriate target ranges for prosthetic heart valve replacement. Current interpretive data was last revised on 2019. Blood 02/28/2025 7:42 PM CDT 02/28/2025 7:57 PM CDT Lucy Ho NP LAB BLOOD ORDERABLES Fin al Result Performing Organization Address [facility] de Phone Number [facility] [place] [address] * (ABNORMAL) CBC without differential (02/28/2025 7:42 PM CDT) [facility] WBC 8.91 3.80 - 9.90 K/cumm Hgb 9.2(L) 13.0 - 17.5 g/dL [facility] Hct 29.5(L) 38.9 - 50.3 % [facility] Plt 223 150 - 400 K/cumm [facility] MPV 10.5 9.1 - 12.3 fL [facility] RBC 3.26(L) 4.30 - 5.80 M/cumm [facility] MCV 90.5 81.3 - 96.4 fL [facility] MCH 28.2 27.1 - 33.3 pg [facility] MCHC 31.2(L) 32.3 - 35.7 g/dL [facility] RDW CV 15.5(H) 11.1 - 14.9 % [facility] RDW SD 51.8(H) 35.7 - 48.1 fL [facility] NRBC abs 0.00 0.00 - 0.01 K/cumm [facility] Blood 02/28/2025 7:42 PM CDT 02/28/2025 7:57 PM CDT Lucy Ho NP LAB BLOOD ORDERABLES Fin al Result Performing Organization Address [facility] de Phone Number [facility] [place] [address] * (ABNORMAL) Type and screen (02/28/2025 7:42 PM CDT) Pathologist [facility] [place] ABO Rh O Positive Bonifacio, indirect Positive(A) [facility] Blood 02/28/2025 7:42 PM CDT 02/28/2025 7:54 PM CDT Narrative [facility] - 02/28/2025 8:47 PM CDT Has the patient had Daratumumab or Isatuximab in the past 6 months?->Unknown Lucy Ho NP LAB BLOOD BANK TEST ORDE RABLES Final Result Performing Organization Address [facility] de Phone Number [facility] [place] [address] * Phosphorus (02/28/2025 7:42 PM CDT) Pathologist [facility] [place] Phosphorus, pl 3.9 2.3 - 4.5 mg/dL Blood 02/28/2025 7:42 PM CDT 02/28/2025 7:56 PM CDT Lucy Ho NP LAB BLOOD ORDERABLES Fin al Result Performing Organization Address [facility] Co de Phone Number [facility] [place] [address] * Magnesium (02/28/2025 7:42 PM CDT) [facility] Magnesium 2.3 1.4 - 2.5 mg/dL Blood 02/28/2025 7:42 PM CDT 02/28/2025 7:56 PM CDT Lucy Ho WHEEL TUNER LAB BLOOD ORDERABLES Fin al Result Performing Organization Address [facility] [place] [address] * Hemoglobin A1c (02/28/2025 7:42 PM CDT) [facility] Hgb A1C 5.4 4.0 - 5.6 % Estimated Average Glucose 108 mg/dL [facility] Comment: The ADA recommends reporting an estimated Average Glucose (eAG) with all Hemoglobin A1c results using the equation derived from a study of 507 normal and diabetic adults. Minority populations were underrepresented and children were not included. (Diabetes Care 2020; 43(S1): S66-S76). The eAG is not equivalent to a fasting glucose. Blood 02/28/2025 7:42 PM CDT 02/28/2025 8:02 PM CDT Result [facility] Liza Traylor MD LAB BLOOD ORDERABLES Fin al Result Performing Organization Address [facility] de Phone Number [facility] [place] [address] * (ABNORMAL) Blood gas, arterial (02/28/2025 7:42 PM CDT) [facility] pH, Art 7.38 7.35 - 7.45 PCO2, Arterial 53(H) 35 - 45 mmHg [facility] PO2, Arterial 78(L) 83 - 108 mmHg [facility] HCO3 Art (Calculated) 31(H) 20 - 30 mmol/L [facility] BE, art 5 mmol/L [facility] Comment: Interpretive Data No Reference Range Established Current Interpretive Data was last revised on 2017 O2 Sat Art (Measured) 96(H) 90 - 95 % [facility] Blood 02/28/2025 7:42 PM CDT 02/28/2025 7:49 PM CDT us Lucy De Jesus [place] WHEEL TUNER LAB BLOOD ORDERABLES Fin al Result [facility] [place] [address] * (ABNORMAL) Lipid panel (02/28/2025 7:42 PM [...] revised on 2018. Triglycerides 45 <=149 mg/dL [facility] Comment: Interpretive Data Ages < or [...] revised on 2018. HDL 27(L) >=40 mg/dL [facility] Comment: Interpretive Data Ages < or [...] on 2018. LDL, calculated 28 <=129 mg/dL [facility] Comment: Interpretive Data Ages < or [...] revised on 2024. Non-HDL Cholesterol 41 mg/dL [facility] Comment: Interpretive Data Ages < or [...] last revised on 2018. Chol/HDL ratio 3 [facility] Blood 02/28/2025 7:42 PM CDT 02/28/2025 7:56 PM CDT us Jaquelin Monroy MD LAB BLOOD ORDERABLES Fin al Result [facility] [place] [address] * (ABNORMAL) Comprehensive metabolic panel (02/28/2025 7:42 PM CDT) Sodium 144 135 - 145 mmol/L Potassium, pl 3.9 3.3 - 4.9 mmol/L [facility] Chloride 106 97 - 110 mmol/L [facility] CO2 33(H) 22 - 32 mmol/L [facility] Anion gap 5 2 - 15 mmol/L [facility] BUN 18 6 - 25 mg/dL [facility] Creatinine 0.88 0.80 - 1.30 mg/dL [facility] Glucose 117 70 - 199 mg/dL [facility] Comment: [...] 2022. Calcium 8.3(L) 8.5 - 10.3 mg/dL [facility] Bilirubin, total 0.3 0.1 - 1.2 mg/dL [facility] Protein, pl 5.9(L) 6.5 - 8.5 g/dL [facility] Albumin 2.8(L) 3.5 - 5.0 g/dL [facility] Alk phos 89 40 - 130 Units/L [facility] ALT 18 7 - 55 Units/L [facility] AST 28 10 - 50 Units/L [facility] Blood 02/28/2025 7:42 PM CDT 02/28/2025 7:56 PM CDT us Lucy Ho NP LAB BLOOD ORDERABLES Fin al Result [facility] [place] [address] * POCT glucose (02/28/2025 7:27 PM CDT) Glucose, POC 126 70 - 199 mg/dL Blood 02/28/2025 7:27 PM CDT 02/28/2025 7:27 PM CDT Liza Traylor MD LAB POCT ORDERABLES - DE VICE Final Result Performing Organization Address [facility] Co de Phone Number [facility] [place] [address] * CTA/CTP Rapid Stroke (C) (02/28/2025 7:13 [...] the CTA were generated on a dedicated workstation/laster hand. [employer] software ([employer]) was used for automated analyses of the CTA. CT perfusion of the brain was performed with intravenous contrast using a separate data acquisition. These data were transmitted to a separate workstation/laster hand for processing by [employer] software ([employer]) to produce automated calculations of the estimated [...] Artery: no occlusion or significant stenosis L CLINICAL OUTCOMES MANAGER: no occlusion or significant stenosis R CLINICAL OUTCOMES MANAGER: Mild to moderate narrowing. No occlusion. [...] the CTA were generated on a dedicated workstation/laster hand. [employer] software ([employer]) was used for automated analyses of the CTA. CT perfusion of the brain was performed with intravenous contrast using a separate data acquisition. These data were transmitted to a separate workstation/laster hand for processing by [employer] software ([employer]) to produce automated calculations of the estimated [...] Artery: no occlusion or significant stenosis L CLINICAL OUTCOMES MANAGER: no occlusion or significant stenosis R CLINICAL OUTCOMES MANAGER: Mild to moderate narrowing. No occlusion. [...] LAB BLOOD ORDERABLES Fin al Result [facility] Department of Laboratories [place], [place] [id number] * (ABNORMAL) Differential, auto (02/28/2025 6:50 PM CDT) Neutrophil abs 7.36(H) 1.50 - 6.50 K/cumm Imm gran abs 0.03 0.00 - 0.10 K/cumm [facility] Lymphocyte abs 0.76(L) 0.80 - 3.30 K/cumm [facility] Monocyte abs 0.87(H) 0.20 - 0.80 K/cumm [facility] Eosinophil abs 0.20 0.00 - 0.50 K/cumm [facility] Basophil abs 0.02 0.00 - 0.10 K/cumm [facility] Neutrophil pct 79.7 % [facility] Comment: Interpretive Data Percent cell count reference ranges are not reported, since discordance with absolute values may lead to misinterpretation of CBC data. Current Interpretive Data was last revised on 2017. Imm gran pct 0.3 % [facility] Comment: Interpretive Data Percent cell count reference ranges are not reported, since discordance with absolute values may lead to misinterpretation of CBC data. Current Interpretive Data was last revised on 2017. Lymphocyte pct 8.2 % [facility] Comment: Interpretive Data Percent cell count reference ranges are not reported, since discordance with absolute values may lead to misinterpretation of CBC data. Current Interpretive Data was last revised on 2017. Monocyte pct 9.4 % [facility] Comment: Interpretive Data Percent cell count reference ranges are not reported, since discordance with absolute values may lead to misinterpretation of CBC data. Current Interpretive Data was last revised on 2017. Eosinophil pct 2.2 % [facility] Comment: Interpretive Data Percent cell count reference ranges are not reported, since discordance with absolute values may lead to misinterpretation of CBC data. Current Interpretive Data was last revised on 2017. Basophil pct 0.2 % [facility] Comment: Interpretive Data Percent cell count reference ranges are not reported, since discordance with absolute values may lead to misinterpretation of CBC data. Current Interpretive Data was last revised on 2017. Blood 02/28/2025 6:50 PM CDT 02/28/2025 7:03 PM CDT us Jaquelin Monroy MD LAB BLOOD ORDERABLES Fin al Result Performing Organization Address City/State/[facility] de Phone Number [facility] [place] [address] * (ABNORMAL) CBC with auto differential (02/28/2025 6:50 PM CDT) Pathologist [facility] [place] WBC 9.24 3.80 - 9.90 K/cumm Hgb 8.9(L) 13.0 - 17.5 g/dL [facility] Hct 28.9(L) 38.9 - 50.3 % [facility] Plt 221 150 - 400 K/cumm [facility] MPV 10.6 9.1 - 12.3 fL [facility] RBC 3.20(L) 4.30 - 5.80 M/cumm [facility] MCV 90.3 81.3 - 96.4 fL [facility] MCH 27.8 27.1 - 33.3 pg [facility] MCHC 30.8(L) 32.3 - 35.7 g/dL [facility] RDW CV 15.4(H) 11.1 - 14.9 % [facility] RDW SD 50.8(H) 35.7 - 48.1 fL [facility] NRBC abs 0.00 0.00 - 0.01 K/cumm [facility] Blood 02/28/2025 6:50 PM CDT 02/28/2025 7:03 PM CDT Jaquelin Monroy MD LAB BLOOD ORDERABLES Fin al Result Performing Organization Address [facility] Co de Phone Number [facility] Department [place] [address] * Lactate, whole blood (02/28/2025 6:50 PM CDT) [facility] Lactate, bld 0.9 0.7 - 2.0 mmol/L Blood 02/28/2025 6:50 PM CDT 02/28/2025 6:57 PM CDT Jaquelin Monroy MD LAB BLOOD ORDERABLES Fin al Result Performing Organization Address City/[facility] Co de Phone Number [facility] [place] [address] * Magnesium (02/28/2025 6:50 PM CDT) Pathologist [facility] [place] Magnesium 2.0 1.4 - 2.5 mg/dL Blood 02/28/2025 6:50 PM CDT 02/28/2025 7:03 PM CDT Jaquelin Monroy MD LAB BLOOD ORDERABLES Fin al Result Performing Organization Address [facility] de Phone Number [facility] [place] [address] * (ABNORMAL) Blood gas, venous (02/28/2025 6:50 PM CDT) Pathologist [facility] [place] pH, Venous 7.34 7.32 - 7.43 PCO2, Venous 59(H) 40 - 50 mmHg [facility] PO2, Venous 58 mmHg [facility] Comment: Interpretive Data No Reference Range Established Current Interpretive Data was last revised on 2017. HCO3 Venous, Calculated 31(H) 20 - 30 mmol/L [facility] BE, venous 4 mmol/L [facility] Comment: Interpretive Data No Reference Range Established Current Interpretive Data was last revised on 2017. Blood 02/28/2025 6:50 PM CDT 02/28/2025 6:57 PM CDT Jaquelin Monroy MD LAB BLOOD ORDERABLES Fin al Result Performing Organization Address [facility] Co de Phone Number [facility] [place] [address] * (ABNORMAL) Hepatic function panel (02/28/2025 6:50 PM CDT) Pathologist [facility] [place] Bilirubin, total 0.3 0.1 - 1.2 mg/dL Bilirubin, direct <0.2 0.1 - 0.3 mg/dL [facility] Protein, pl 5.9(L) 6.5 - 8.5 g/dL [facility] Albumin 3.0(L) 3.5 - 5.0 g/dL [facility] Alk phos 91 40 - 130 Units/L [facility] ALT 23 7 - 55 Units/L [facility] AST 27 10 - 50 Units/L [facility] Blood 02/28/2025 6:50 PM CDT 02/28/2025 7:03 PM CDT us Jaquelin Monroy MD LAB BLOOD ORDERABLES Fin al Result [facility] [place] [address] * (ABNORMAL) Basic metabolic panel (02/28/2025 6:50 PM CDT) Sodium 148(H) 135 - 145 mmol/L Potassium, pl 4.5 3.3 - 4.9 mmol/L [facility] Chloride 108 97 - 110 mmol/L [facility] CO2 33(H) 22 - 32 mmol/L [facility] Anion gap 7 2 - 15 mmol/L [facility] BUN 17 6 - 25 mg/dL [facility] Creatinine 0.85 0.80 - 1.30 mg/dL [facility] Glucose 136 70 - 199 mg/dL [facility] Comment: [...] 2022. Calcium 7.6(L) 8.5 - 10.3 mg/dL [facility] Blood 02/28/2025 6:50 PM CDT 02/28/2025 7:03 PM CDT Jaquelin Monroy MD LAB BLOOD ORDERABLES Fin al Result Performing Organization Address City/[facility]/ZIP Co de Phone Number [facility] [place] [address] * (ABNORMAL) Arterial Blood gas w/Lactate POCT (02/28/2025 6:49 PM CDT) Lactate POC i-STAT 0.5(L) 0.7 - 2.0 mmol/L pH POC 7.34(L) 7.35 - 7.45 [facility] pCO2, Art POC 60(H) 35 - 45 mmHg [facility] PO2 POC 51(L) 80 - 105 mmHg [facility] CO2, total POC 35(H) 20 - 30 mmol/L [facility] HCO3, POC 33(H) 21 - 30 mmol/L [facility] BE POC 7(H) -2 - 3 mmol/L [facility] O2 sat POC 82(L) 95 - 98 % [facility] Blood 02/28/2025 6:49 PM CDT 02/28/2025 6:49 PM CDT Jaquelin Monroy MD LAB BLOOD ORDERABLES Fin al Result Performing Organization Address [facility]/ZIP Co de Phone Number [facility] Department [place] [address] * POCT glucose (02/28/2025 6:30 PM CDT) Glucose, POC 140 70 - 199 mg/dL Blood 02/28/2025 6:30 PM CDT 02/28/2025 6:30 PM CDT Jaquelin Monroy MD LAB POCT ORDERABLES - DE VICE Final Result [facility] [place] [address] * XR Sacrum Coccyx 2 or More [...] Inclusion of Race in Diagnosing Kidney Disease, ROSANAN 2020). The CKD-EPI equation should not be used for patients with unstable renal function and has not been validated in children and those over 70. Current interpretive data was last reviewed 2021. Blood 02/27/2025 10:5 5 PM CDT 02/28/2025 12:32 AM CDT us Shayne Hussein MD LAB BLOOD ORDERABLES Final R esult [facility] [place] [address] * (ABNORMAL) Differential, auto (02/27/2025 10:55 PM CDT) Neutrophil abs 7.32(H) 1.50 - 6.50 K/cumm Imm gran abs 0.05 0.00 - 0.10 K/cumm [facility] Lymphocyte abs 0.88 0.80 - 3.30 K/cumm [facility] Monocyte abs 0.93(H) 0.20 - 0.80 K/cumm [facility] Eosinophil abs 0.21 0.00 - 0.50 K/cumm [facility] Basophil abs 0.03 0.00 - 0.10 K/cumm [facility] Neutrophil pct 77.8 % [facility] Comment: Interpretive Data Percent cell count reference ranges are not reported, since discordance with absolute values may lead to misinterpretation of CBC data. Current Interpretive Data was last revised on 2017. Imm gran pct 0.5 % [facility] Comment: Interpretive Data Percent cell count reference ranges are not reported, since discordance with absolute values may lead to misinterpretation of CBC data. Current Interpretive Data was last revised on 2017. Lymphocyte pct 9.3 % [facility] Comment: Interpretive Data Percent cell count reference ranges are not reported, since discordance with absolute values may lead to misinterpretation of CBC data. Current Interpretive Data was last revised on 2017. Monocyte pct 9.9 % [facility] Comment: Interpretive Data Percent cell count reference ranges are not reported, since discordance with absolute values may lead to misinterpretation of CBC data. Current Interpretive Data was last revised on 2017. Eosinophil pct 2.2 % [facility] Comment: Interpretive Data Percent [...] MD LAB BLOOD ORDERABLES Final R esult [facility] [place] [address] * (ABNORMAL) CBC with auto differential (02/27/2025 10:55 PM CDT) WBC 9.42 3.80 - 9.90 K/cumm Hgb 8.9(L) 13.0 - 17.5 g/dL [facility] Hct 28.3(L) 38.9 - 50.3 % [facility] Plt 224 150 - 400 K/cumm [facility] MPV 10.6 9.1 - 12.3 fL [facility] RBC 3.15(L) 4.30 - 5.80 M/cumm [facility] MCV 89.8 81.3 - 96.4 fL [facility] MCH 28.3 27.1 - 33.3 pg [facility] MCHC 31.4(L) 32.3 - 35.7 g/dL [facility] RDW CV 15.5(H) 11.1 - 14.9 % [facility] RDW SD 50.9(H) 35.7 - 48.1 fL [facility] NRBC abs 0.00 0.00 - 0.01 K/cumm [facility] Blood 02/27/2025 10:5 5 PM CDT 02/28/2025 12:37 AM CDT Shayne Hussein MD LAB BLOOD ORDERABLES Final R esult Performing Organization Address City/[facility] Co de Phone Number [facility] Department [place] [address] * (ABNORMAL) Basic metabolic panel (02/27/2025 10:55 PM CDT) [facility] Sodium 141 135 - 145 mmol/L Potassium, pl 3.6 3.3 - 4.9 mmol/L [facility] Chloride 105 97 - 110 mmol/L [facility] CO2 30 22 - 32 mmol/L [facility] Anion gap 6 2 - 15 mmol/L [facility] BUN 18 6 - 25 mg/dL [facility] Creatinine 0.90 0.80 - 1.30 mg/dL [facility] Glucose 105 70 - 199 mg/dL [facility] Comment: [...] 2022. Calcium 7.8(L) 8.5 - 10.3 mg/dL [facility] Blood 02/27/2025 10:5 5 PM CDT 02/28/2025 12:32 AM CDT Shayne Hussein MD LAB BLOOD ORDERABLES Final R esult Performing Organization Address [facility]/ZIP Co de Phone Number [facility] Department [place] [address] * POCT glucose (02/27/2025 11:31 AM CDT) Glucose, POC 138 70 - 199 mg/dL Blood 02/27/2025 11:3 1 AM CDT 02/27/2025 11:31 AM CDT us Jaquelin Monroy MD LAB POCT ORDERABLES - DE VICE Final Result Performing Organization Address City/[facility]/ZIP Co de Phone Number [facility] Department [place] [address] * eGFR (02/26/2025 11:33 PM CDT) eGFR [...] [facility]/ZIP Co de Phone Number [facility] Department [place] [address] * (ABNORMAL) Differential, auto (02/26/2025 11:33 PM CDT) Neutrophil abs 5.82 1.50 - 6.50 K/cumm Imm gran abs 0.04 0.00 - 0.10 K/cumm [facility] Lymphocyte abs 0.74(L) 0.80 - 3.30 K/cumm [facility] Monocyte abs 0.82(H) 0.20 - 0.80 K/cumm [facility] Eosinophil abs 0.25 0.00 - 0.50 K/cumm [facility] Basophil abs 0.02 0.00 - 0.10 K/cumm [facility] Neutrophil pct 75.6 % [facility] Comment: Interpretive Data Percent cell count reference ranges are not reported, since discordance with absolute values may lead to misinterpretation of CBC data. Current Interpretive Data was last revised on 2017. Imm gran pct 0.5 % [facility] Comment: Interpretive Data Percent cell count reference ranges are not reported, since discordance with absolute values may lead to misinterpretation of CBC data. Current Interpretive Data was last revised on 2017. Lymphocyte pct 9.6 % [facility] Comment: Interpretive Data Percent cell count reference ranges are not reported, since discordance with absolute values may lead to misinterpretation of CBC data. Current Interpretive Data was last revised on 2017. Monocyte pct 10.7 % [facility] Comment: Interpretive Data Percent cell count reference ranges are not reported, since discordance with absolute values may lead to misinterpretation of CBC data. Current Interpretive Data was last revised on 2017. Eosinophil pct 3.3 % [facility] Comment: Interpretive Data Percent [...] [facility]/ZIP Co de Phone Number [facility] [place] [address] * (ABNORMAL) CBC with auto differential (02/26/2025 11:33 PM CDT) Pathologist [facility] [place] WBC 7.69 3.80 - 9.90 K/cumm Hgb 8.9(L) 13.0 - 17.5 g/dL [facility] Hct 28.8(L) 38.9 - 50.3 % [facility] Plt 174 150 - 400 K/cumm [facility] MPV 10.7 9.1 - 12.3 fL [facility] RBC 3.16(L) 4.30 - 5.80 M/cumm [facility] MCV 91.1 81.3 - 96.4 fL [facility] MCH 28.2 27.1 - 33.3 pg [facility] MCHC 30.9(L) 32.3 - 35.7 g/dL [facility] RDW CV 15.2(H) 11.1 - 14.9 % [facility] RDW SD 51.2(H) 35.7 - 48.1 fL [facility] NRBC abs 0.00 0.00 - 0.01 K/cumm [facility] Blood 02/26/2025 11:3 3 PM CDT 02/27/2025 12:06 AM CDT us Shayne Hussein MD LAB BLOOD ORDERABLES Final R esult [facility] Department [place] [address] * (ABNORMAL) Basic metabolic panel (02/26/2025 11:33 PM CDT) Sodium 142 135 - 145 mmol/L Potassium, pl 3.8 3.3 - 4.9 mmol/L [facility] Chloride 106 97 - 110 mmol/L [facility] CO2 31 22 - 32 mmol/L [facility] Anion gap 5 2 - 15 mmol/L [facility] BUN 17 6 - 25 mg/dL [facility] Creatinine 0.85 0.80 - 1.30 mg/dL [facility] Glucose 111 70 - 199 mg/dL [facility] Comment: [...] 2022. Calcium 8.0(L) 8.5 - 10.3 mg/dL [facility] Blood 02/26/2025 11:3 3 PM CDT 02/27/2025 12:05 AM CDT us Shayne Hussein MD LAB BLOOD ORDERABLES Final R esult [facility] Department [place] [address] * Potassium, urine, random (02/26/2025 4:41 PM CDT) Pathologist [facility] [place] Potassium conc, ur 19.1 mmol/L Comment: Interpretive Data No reference range established. Current interpretive data was last revised 2018. Urine 02/26/2025 4:41 PM CDT 02/26/2025 4:57 PM CDT us Ros Olivares NP LAB URINE ORDERABLES Final Result [facility] Department [place] [address] * Creatinine, urine, random (02/26/2025 4:41 PM CDT) Creatinine Ur 136.2 mg/dL Comment: Interpretive Data No reference range established. Current interpretive data was last revised 2018. Urine 02/26/2025 4:41 PM CDT 02/26/2025 4:57 PM CDT Ros Olivares NP LAB URINE ORDERABLES Final Result Performing Organization Address [facility] Co de Phone Number [facility] [place] [address] * Chloride, urine, random (02/26/2025 4:41 PM CDT) Chloride, ur 91 mmol/L Comment: Interpretive Data No reference range established. Current interpretive data was last revised 2018. Urine 02/26/2025 4:41 PM CDT 02/26/2025 4:57 PM CDT Ros Olivares NP LAB URINE ORDERABLES Final Result Performing Organization Address [facility] de Phone Number [facility] [place] [address] * eGFR (02/26/2025 6:13 AM CDT) eGFR [...] Olivares NP LAB BLOOD ORDERABLES Final Result [facility] [place] [address] * (ABNORMAL) Differential, auto (02/26/2025 6:13 AM CDT) Neutrophil abs 5.34 1.50 - 6.50 K/cumm Imm gran abs 0.03 0.00 - 0.10 K/cumm [facility] Lymphocyte abs 0.63(L) 0.80 - 3.30 K/cumm [facility] Monocyte abs 0.93(H) 0.20 - 0.80 K/cumm [facility] Eosinophil abs 0.19 0.00 - 0.50 K/cumm [facility] Basophil abs 0.01 0.00 - 0.10 K/cumm [facility] Neutrophil pct 75.0 % [facility] Comment: Interpretive Data Percent [...] revised on 2017. Lymphocyte pct 8.8 % [facility] Comment: Interpretive Data Percent cell count reference ranges are not reported, since discordance with absolute values may lead to misinterpretation of CBC data. Current Interpretive Data was last revised on 2017. Monocyte pct 13.0 % [facility] Comment: Interpretive Data Percent cell count reference ranges are not reported, since discordance with absolute values may lead to misinterpretation of CBC data. Current Interpretive Data was last revised on 2017. Eosinophil pct 2.7 % [facility] Comment: Interpretive Data Percent cell count reference ranges are not reported, since discordance with absolute values may lead to misinterpretation of CBC data. Current Interpretive Data was last revised on 2017. Basophil pct 0.1 % [facility] Comment: Interpretive Data Percent cell count reference ranges are not reported, since discordance with absolute values may lead to misinterpretation of CBC data. Current Interpretive Data was last revised on 2017. Blood 02/26/2025 6:13 AM CDT 02/26/2025 6:26 AM CDT us Shayne Hussein MD LAB BLOOD ORDERABLES Final R esult [facility] [place] [address] * (ABNORMAL) CBC with auto differential (02/26/2025 6:13 AM CDT) WBC 7.13 3.80 - 9.90 K/cumm Hgb 8.4(L) 13.0 - 17.5 g/dL [facility] Hct 26.6(L) 38.9 - 50.3 % [facility] Plt 182 150 - 400 K/cumm [facility] MPV 10.4 9.1 - 12.3 fL [facility] RBC 2.99(L) 4.30 - 5.80 M/cumm [facility] MCV 89.0 81.3 - 96.4 fL [facility] MCH 28.1 27.1 - 33.3 pg [facility] MCHC 31.6(L) 32.3 - 35.7 g/dL [facility] RDW CV 15.5(H) 11.1 - 14.9 % [facility] RDW SD 50.5(H) 35.7 - 48.1 fL [facility] NRBC abs 0.00 0.00 - 0.01 K/cumm [facility] Blood 02/26/2025 6:13 AM CDT 02/26/2025 6:26 AM CDT Shayne Hussein MD LAB BLOOD ORDERABLES Final R esult Performing Organization Address City/[facility] Co de Phone Number [facility] [place] [address] * Magnesium (02/26/2025 6:13 AM CDT) [facility] Magnesium 2.2 1.4 - 2.5 mg/dL Blood 02/26/2025 6:13 AM CDT 02/26/2025 6:26 AM CDT Shayne Hussein MD LAB BLOOD ORDERABLES Final R [facility] Performing Organization Address [facility] de Phone Number [facility] [place] [address] * (ABNORMAL) Basic metabolic panel (02/26/2025 6:13 AM CDT) [facility] Sodium 143 135 - 145 mmol/L Potassium, pl 3.3 3.3 - 4.9 mmol/L [facility] Chloride 104 97 - 110 mmol/L [facility] CO2 28 22 - 32 mmol/L [facility] Anion gap 11 2 - 15 mmol/L [facility] BUN 15 6 - 25 mg/dL [facility] Creatinine 0.83 0.80 - 1.30 mg/dL [facility] Glucose 102 70 - 199 mg/dL [facility] Comment: [...] 2022. Calcium 7.9(L) 8.5 - 10.3 mg/dL [facility] Blood 02/26/2025 6:13 AM CDT 02/26/2025 6:26 AM CDT us Ros Olivares NP LAB BLOOD ORDERABLES Final Result Performing Organization Address City/[facility] Co de Phone Number [facility] [place] [address] * eGFR (02/25/2025 10:30 PM CDT) eGFR [...] [facility]/ZIP Co de Phone Number [facility] Department [place] [address] * Magnesium (02/25/2025 10:30 PM CDT) Pathologist [facility] [place] Magnesium 2.1 1.4 - 2.5 mg/dL Blood 02/25/2025 10:3 0 PM CDT 02/25/2025 10:39 PM CDT us Shayne Hussein MD LAB BLOOD ORDERABLES Final R esult [facility] [place] [address] * (ABNORMAL) Basic metabolic panel (02/25/2025 10:30 PM CDT) [facility] Sodium 139 135 - 145 mmol/L Potassium, pl 3.7 3.3 - 4.9 mmol/L [facility] Chloride 101 97 - 110 mmol/L [facility] CO2 31 22 - 32 mmol/L [facility] Anion gap 7 2 - 15 mmol/L [facility] BUN 16 6 - 25 mg/dL [facility] Creatinine 0.78(L) 0.80 - 1.30 mg/dL [facility] Glucose 110 70 - 199 mg/dL [facility] Comment: [...] 2022. Calcium 8.3(L) 8.5 - 10.3 mg/dL [facility] Blood 02/25/2025 10:3 0 PM CDT 02/25/2025 10:39 PM CDT us Shayne Hussein MD LAB BLOOD ORDERABLES Final R esult Performing Organization Address City/[facility]/ZIP Co de Phone Number [facility] Department [place] [address] * (ABNORMAL) Potassium, whole blood (02/25/2025 2:44 PM CDT) Potassium, bld 3.2(L) 3.3 - 4.9 mmol/L Comment:Verified Blood 02/25/2025 2:44 PM CDT 02/25/2025 2:52 PM CDT Savannah Valenzuela MD PhD LAB BLOOD ORDERABLES Final Resu lt Performing Organization Address [facility] [place] [address] * (ABNORMAL) Troponin I high-sensitivity 4-hour (02/25/2025 2:14 PM CDT) Pathologist [facility] [place] Trop I hs 55(H) <=35 ng/L Comment: Interpretive Data For further hscTnI resources including the diagnostic algorithm and an aid in interpretation, copy and paste this link: https://bjhlab.testcatalog.org/show/hsTrop-1 Current Interpretive Data last revised 2020. Trop I hs delta -13 ng/L [facility] Trop I hs interp Equivocal [facility] Blood 02/25/2025 2:14 PM CDT 02/25/2025 3:45 PM CDT Savannah Valenzuela MD PhD LAB BLOOD ORDERABLES Final Resu lt Performing Organization Address [facility]/ZIP Co de Phone Number [facility] [place] [address] * Bladder Catheterization (02/25/2025 12:13 PM CDT) [...] Rapid HIV, POC Negative Negative Lot Number [id number] QC Control Line Acceptable Blood 02/25/2025 11:2 0 AM CDT Ezekiel Roberts MD POINT OF CARE TEST ORDERABLES Fi nal Result * (ABNORMAL) Urinalysis reflex to microscopic and culture Urine, suprapubic catheter (02/25/2025 11:19 AM CDT) Color, ur Straw Yellow Clarity, ur Clear Clear [facility] Specific gravity, ur 1.016 1.003 - 1.030 [facility] pH, urine 6.0 [facility] Comment: Interpretive Data U rine pH is affected by diet, medications, systemic acid-base disturbances, and renal tubular function. pH may affect urinary stone formation. For example, urine pH below 6.0 may help reduce the tendency for calcium phosphate stones and pH greater than 6.0 may reduce the tendency for uric acid stone formation. Source: [email or web address] Current Interpretive Data was last revised on 2017 Protein, ur ql 1+(A) Negative [facility] Glucose, ur ql Negative Negative [facility] Ketones, ur 2+(A) Negative [facility] Bilirubin, ur Negative Negative [facility] Blood, ur Trace(A) Negative [facility] Urobilinogen, ur <2.0 <2.0 mg/dL [facility] Nitrite, ur Negative Negative [facility] Leukocyte esterase, ur Negative Negative [facility] UA reflex comment Reflex to microscopic UA will be performed. [facility] Urine, suprapubic catheter 02/25/2025 11:19 AM CDT 02/25/2025 11:39 AM CDT Savannah Valenzuela MD PhD LAB MICROBIOLOGY - [facility] Final Result Performing Organization Address [facility] Co de Phone Number [facility] [place] [address] * (ABNORMAL) Urinalysis, microscopic only (02/25/2025 11:19 AM CDT) WBC, ur 11-20(A) 0 - 5 /HPF RBC, ur 3-5(A) 0 - 2 /HPF [facility] Epithelial cells, squamous, ur 1-5 0 - 5 /HPF [facility] Mucous, ur Present(A) [facility] Culture Reflex Comment Reflex to urine culture will be performed. [facility] Urine, suprapubic catheter 02/25/2025 11:19 AM CDT 02/25/2025 11:39 AM CDT Savannah Valenzuela MD PhD LAB URINE ORDERABLES Final Resu lt Performing Organization Address [facility] Co de Phone Number [facility] [place] [address] * Urine culture Urine, suprapubic catheter (02/25/2025 11:19 AM CDT) Report Final Report: Less than 100,000 colonies/mL (clinically insignificant growth based on current clinical standards) Organism (CLINICALLY INSIGNIFICANT GROWTH [facility] Urine, suprapubic catheter 02/25/2025 11:19 AM CDT 02/25/2025 3:07 PM CDT Narrative [facility] - 02/26/2025 6:15 PM CDT Urine culture reflexed based upon urinalysis results. Testing performed by [facility] ([phone]) Savannah Valenzuela MD PhD LAB MICROBIOLOGY - GENERAL ORDBelen [facility] Final Result Performing Organization Address [facility] Co de Phone Number [facility] Department [place] [address] * (ABNORMAL) Troponin I high-sensitivity series (baseline, 2hr, 4hr, 6hr) (02/25/2025 10:01 AM CDT) Pathologist [facility] [place] Trop I hs 68(H) <=35 ng/L Comment: Interpretive Data For further hscTnI resources including the diagnostic algorithm and an aid in interpretation, copy and paste this link: https://bjhlab.testcatalog.org/show/hsTrop-[email or web address] Current Interpretive Data last revised 2020. Blood 02/25/2025 10:0 1 AM CDT 02/25/2025 10:49 AM CDT Savannah Valenzuela MD PhD LAB BLOOD ORDERABLES Final Resu lt Performing Organization Address [facility] Co de Phone Number [facility] Department [place] [address] * Sepsis Lactate w/ Reflex (02/25/2025 10:01 AM CDT) [facility] Sepsis Lactate 0.8 0.7 - 2.0 mmol/L Blood 02/25/2025 10:0 1 AM CDT 02/25/2025 10:25 AM CDT Savannah Valenzuela MD PhD LAB BLOOD ORDERABLES Final Resu lt Performing Organization Address [facility] Co de Phone Number [facility] Department [place] [address] * eGFR (02/25/2025 10:01 AM CDT) [facility] eGFR 90 >=60 mL/min/1. 73 m2 Comment: [...] PhD LAB BLOOD ORDERABLES Final Resu lt [facility] [place] [address] * (ABNORMAL) Differential, auto (02/25/2025 10:01 AM CDT) Neutrophil abs 9.62(H) 1.50 - 6.50 K/cumm Imm gran abs 0.07 0.00 - 0.10 K/cumm [facility] Lymphocyte abs 0.47(L) 0.80 - 3.30 K/cumm [facility] Monocyte abs 1.19(H) 0.20 - 0.80 K/cumm [facility] Eosinophil abs 0.02 0.00 - 0.50 K/cumm [facility] Basophil abs 0.02 0.00 - 0.10 K/cumm [facility] Neutrophil pct 84.5 % [facility] Comment: Interpretive Data Percent cell count reference ranges are not reported, since discordance with absolute values may lead to misinterpretation of CBC data. Current Interpretive Data was last revised on 2017. Imm gran pct 0.6 % [facility] Comment: Interpretive Data Percent cell count reference ranges are not reported, since discordance with absolute values may lead to misinterpretation of CBC data. Current Interpretive Data was last revised on 2017. Lymphocyte pct 4.1 % [facility] Comment: Interpretive Data Percent cell count reference ranges are not reported, since discordance with absolute values may lead to misinterpretation of CBC data. Current Interpretive Data was last revised on 2017. Monocyte pct 10.4 % [facility] Comment: Interpretive Data Percent cell count reference ranges are not reported, since discordance with absolute values may lead to misinterpretation of CBC data. Current Interpretive Data was last revised on 2017. Eosinophil pct 0.2 % [facility] Comment: Interpretive Data Percent cell count reference ranges are not reported, since discordance with absolute values may lead to misinterpretation of CBC data. Current Interpretive Data was last revised on 2017. Basophil pct 0.2 % [facility] Comment: Interpretive Data Percent cell count reference ranges are not reported, since discordance with absolute values may lead to misinterpretation of CBC data. Current Interpretive Data was last revised on 2017. Blood 02/25/2025 10:0 1 AM CDT 02/25/2025 10:49 AM CDT us Savannah Valenzuela MD PhD LAB BLOOD ORDERABLES Final Resu lt [facility] [place] [address] * (ABNORMAL) CBC with auto differential (02/25/2025 10:01 AM CDT) WBC 11.39(H) 3.80 - 9.90 K/cumm Hgb 9.2(L) 13.0 - 17.5 g/dL [facility] Hct 28.9(L) 38.9 - 50.3 % [facility] Plt 180 150 - 400 K/cumm [facility] MPV 10.3 9.1 - 12.3 fL [facility] RBC 3.29(L) 4.30 - 5.80 M/cumm [facility] MCV 87.8 81.3 - 96.4 fL [facility] MCH 28.0 27.1 - 33.3 pg [facility] MCHC 31.8(L) 32.3 - 35.7 g/dL [facility] RDW CV 15.1(H) 11.1 - 14.9 % [facility] RDW SD 48.9(H) 35.7 - 48.1 fL [facility] NRBC abs 0.00 0.00 - 0.01 K/cumm [facility] Blood 02/25/2025 10:0 1 AM CDT 02/25/2025 10:49 AM CDT Savannah Valenzuela MD PhD LAB BLOOD ORDERABLES Final Resu lt [facility] [place] [address] * Blood culture Blood Peripheral (02/25/2025 10:01 AM CDT) Report Final Report: No growth Blood (Peripheral) 02/25/2025 10:01 AM CDT 02/25/2025 10:26 AM CDT Narrative [facility] - 03/01/2025 12:01 PM CDT From [...] characteristics have been verified by the [facility] Microbiology Laboratory. For questions about this culture, contact the Microbiology Laboratory at [phone]. Interpretive data was last revised on 24. Savannah Valenzuela MD PhD LAB MICROBIOLOGY - [facility]TON[facility] WALKER Final Result [facility] [place] [address] * Blood culture Blood Peripheral (02/25/2025 10:01 AM CDT) Report Final Report: No growth Blood (Peripheral) 02/25/2025 10:01 AM CDT 02/25/2025 10:26 AM CDT [facility] - 03/01/2025 12:01 PM CDT Draw Blood [...] characteristics have been verified by the [facility]. For questions about this culture, contact the Microbiology Laboratory at [phone]. Interpretive data was last revised on 24. Savannah Valenzuela MD PhD [facility] Final Result Performing Organization Address City/[facility]/ZIP Co de Phone Number [facility] [place] [address] * Phosphorus (02/25/2025 10:01 AM CDT) Pathologist [facility] [place] Phosphorus, pl 2.3 2.3 - 4.5 mg/dL Blood 02/25/2025 10:0 1 AM CDT 02/25/2025 10:23 AM CDT Ezekiel Roberts MD LAB BLOOD ORDERABLES Final Resul t Performing Organization Address [facility] Co de Phone Number [facility] [place] [address] * Magnesium (02/25/2025 10:01 AM CDT) [facility] Magnesium 2.0 1.4 - 2.5 mg/dL Blood 02/25/2025 10:0 1 AM CDT 02/25/2025 10:23 AM CDT Ezekiel Roberts MD LAB BLOOD ORDERABLES Final Resul t Performing Organization Address [facility] Co de Phone Number [facility] Department [place] [address] * (ABNORMAL) Comprehensive metabolic panel (02/25/2025 10:01 AM CDT) Pathologist [facility] [place] Sodium 143 135 - 145 mmol/L Potassium, pl 2.7(L) 3.3 - 4.9 mmol/L [facility] Chloride 100 97 - 110 mmol/L [facility] CO2 32 22 - 32 mmol/L [facility] Anion gap 11 2 - 15 mmol/L [facility] BUN 19 6 - 25 mg/dL [facility] Creatinine 0.87 0.80 - 1.30 mg/dL [facility] Glucose 114 70 - 199 mg/dL [facility] Comment: [...] 2022. Calcium 8.3(L) 8.5 - 10.3 mg/dL [facility] Bilirubin, total 0.7 0.1 - 1.2 mg/dL [facility] Protein, pl 5.9(L) 6.5 - 8.5 g/dL [facility] Albumin 3.0(L) 3.5 - 5.0 g/dL [facility] Alk phos 77 40 - 130 Units/L [facility] ALT 18 7 - 55 Units/L [facility] AST 24 10 - 50 Units/L [facility] Blood 02/25/2025 10:0 1 AM CDT 02/25/2025 10:23 AM CDT us Savannah Valenzuela MD PhD LAB BLOOD ORDERABLES Final Resu lt [facility] [place] [address] * ECG 12-LEAD (02/25/2025 9:57 AM CDT) Narrative [facility] - 02/25/2025 9:57 AM CDT [...] MD PhD ECG ORDERABLES Final Result [facility] * XR Chest 1 Vw Portable (02/25/2025 [...] is within normal limits. Dictated by: Yolande [place], M.D. The radiology attending physician has personally [...] Meadows MD LAB BLOOD ORDERABLES Final Result [facility] [place] [address] * (ABNORMAL) CBC without differential (02/18/2025 6:56 PM CDT) WBC 14.61(H) 3.80 - 9.90 K/cumm Hgb 9.5(L) 13.0 - 17.5 g/dL [facility] Hct 30.1(L) 38.9 - 50.3 % [facility] Plt 207 150 - 400 K/cumm [facility] MPV 11.0 9.1 - 12.3 fL [facility] RBC 3.38(L) 4.30 - 5.80 M/cumm [facility] MCV 89.1 81.3 - 96.4 fL [facility] MCH 28.1 27.1 - 33.3 pg [facility] MCHC 31.6(L) 32.3 - 35.7 g/dL [facility] RDW CV 14.6 11.1 - 14.9 % [facility] RDW SD 46.8 35.7 - 48.1 fL [facility] NRBC abs 0.00 0.00 - 0.01 K/cumm [facility] Blood 02/18/2025 6:56 PM CDT 02/18/2025 7:28 PM CDT Alena Meadows MD LAB BLOOD ORDERABLES Final Result Performing Organization Address City/[facility]/ZIP Co de Phone Number [facility] [place] [address] * Magnesium (02/18/2025 6:56 PM CDT) [facility] Magnesium 2.0 1.4 - 2.5 mg/dL Blood 02/18/2025 6:56 PM CDT 02/18/2025 7:27 PM CDT Alena Meadows MD LAB BLOOD ORDERABLES Final Result [facility] Department [place] [address] * (ABNORMAL) Comprehensive metabolic panel (02/18/2025 6:56 PM CDT) [facility] Sodium 138 135 - 145 mmol/L Potassium, pl 3.5 3.3 - 4.9 mmol/L [facility] Chloride 100 97 - 110 mmol/L [facility] CO2 30 22 - 32 mmol/L [facility] Anion gap 8 2 - 15 mmol/L [facility] BUN 22 6 - 25 mg/dL [facility] Creatinine 0.94 0.80 - 1.30 mg/dL [facility] Glucose 131 70 - 199 mg/dL [facility] Comment: [...] 2022. Calcium 8.2(L) 8.5 - 10.3 mg/dL [facility] Bilirubin, total 0.4 0.1 - 1.2 mg/dL [facility] Protein, pl 5.9(L) 6.5 - 8.5 g/dL [facility] Albumin 2.9(L) 3.5 - 5.0 g/dL [facility] Alk phos 93 40 - 130 Units/L [facility] ALT 16 7 - 55 Units/L [facility] AST 17 10 - 50 Units/L [facility] Blood 02/18/2025 6:56 PM CDT 02/18/2025 7:27 PM CDT Alena Meadows MD LAB BLOOD ORDERABLES Final Result [facility] [place] [address] * Sepsis Lactate w/ Reflex (02/17/2025 4:32 PM CDT) Sepsis Lactate 0.9 0.7 - 2.0 mmol/L Blood 02/17/2025 4:32 PM CDT 02/17/2025 4:42 PM CDT Juanita Rogers MD LAB BLOOD ORDERABLES Final Result Performing Organization Address City/[facility] Co de Phone Number [facility] [place] [address] * eGFR (02/17/2025 4:32 PM CDT) eGFR [...] BLOOD ORDERABLES Final Result Performing Organization Address City/[facility] Co de Phone Number [facility] [place] [address] * (ABNORMAL) Differential, auto (02/17/2025 4:32 PM CDT) Pathologist [facility] [place] Neutrophil abs 12.39(H) 1.50 - 6.50 K/cumm Imm gran abs 0.08 0.00 - 0.10 K/cumm [facility] Lymphocyte abs 0.59(L) 0.80 - 3.30 K/cumm [facility] Monocyte abs 1.38(H) 0.20 - 0.80 K/cumm [facility] Eosinophil abs 0.06 0.00 - 0.50 K/cumm [facility] Basophil abs 0.02 0.00 - 0.10 K/cumm [facility] Neutrophil pct 85.3 % [facility] Comment: Interpretive Data Percent cell count reference ranges are not reported, since discordance with absolute values may lead to misinterpretation of CBC data. Current Interpretive Data was last revised on 2017. Imm gran pct 0.6 % [facility] Comment: Interpretive Data Percent cell count reference ranges are not reported, since discordance with absolute values may lead to misinterpretation of CBC data. Current Interpretive Data was last revised on 2017. Lymphocyte pct 4.1 % [facility] Comment: Interpretive Data Percent cell count reference ranges are not reported, since discordance with absolute values may lead to misinterpretation of CBC data. Current Interpretive Data was last revised on 2017. Monocyte pct 9.5 % [facility] Comment: Interpretive Data Percent cell count reference ranges are not reported, since discordance with absolute values may lead to misinterpretation of CBC data. Current Interpretive Data was last revised on 2017. Eosinophil pct 0.4 % [facility] Comment: Interpretive Data Percent cell count reference ranges are not reported, since discordance with absolute values may lead to misinterpretation of CBC data. Current Interpretive Data was last revised on 2017. Basophil pct 0.1 % [facility] Comment: Interpretive Data Percent cell count reference ranges are not reported, since discordance with absolute values may lead to misinterpretation of CBC data. Current Interpretive Data was last revised on 2017. Blood 02/17/2025 4:32 PM CDT 02/17/2025 4:44 PM CDT us Juanita Rogers MD LAB BLOOD ORDERABLES Final Result [facility] [place] [address] * (ABNORMAL) CBC with auto differential (02/17/2025 4:32 PM CDT) WBC 14.66(H) 3.80 - 9.90 K/cumm Hgb 9.8(L) 13.0 - 17.5 g/dL [facility] Hct 30.9(L) 38.9 - 50.3 % [facility] Plt 177 150 - 400 K/cumm [facility] MPV 11.0 9.1 - 12.3 fL [facility] RBC 3.44(L) 4.30 - 5.80 M/cumm [facility] MCV 89.8 81.3 - 96.4 fL [facility] MCH 28.5 27.1 - 33.3 pg [facility] MCHC 31.7(L) 32.3 - 35.7 g/dL [facility] RDW CV 14.6 11.1 - 14.9 % [facility] RDW SD 48.5(H) 35.7 - 48.1 fL [facility] NRBC abs 0.00 0.00 - 0.01 K/cumm [facility] Blood 02/17/2025 4:32 PM CDT 02/17/2025 4:44 PM CDT Juanita Rogers MD LAB BLOOD ORDERABLES Final Result [facility] [place] [address] * Blood culture Blood Peripheral (02/17/2025 4:32 PM CDT) Pathologist [facility] [place] Report Final Report: No growth Blood (Peripheral) 02/17/2025 4:32 PM CDT 02/17/2025 4:48 PM CDT Narrative [facility] - 02/22/2025 7:00 AM CDT Received [...] characteristics have been verified by the [facility]. For questions about this culture, contact the Microbiology Laboratory at [phone]. Interpretive data was last revised on 24. us Juanita Rogers MD LAB MICROBIOLOGY - GENERAL ORDERABLES Final Result [facility] [place] [address] * Blood culture Blood Peripheral (02/17/2025 4:32 PM CDT) Report Final Report: No growth Blood (Peripheral) 02/17/2025 4:32 PM CDT 02/17/2025 4:47 PM CDT [facility] - 02/22/2025 7:00 AM CDT Received [...] characteristics have been verified by the [facility]biology [facility]. For questions about this culture, contact the Microbiology Laboratory at [phone]. Interpretive data was last revised on 24. us Juanita Rogers MD LAB MICROBIOLOGY - GENERAL ORDERABLES Final Result [facility] [place] [address] * (ABNORMAL) Comprehensive metabolic panel (02/17/2025 4:32 PM CDT) Sodium 144 135 - 145 mmol/L Potassium, pl 3.3 3.3 - 4.9 mmol/L [facility] Chloride 104 97 - 110 mmol/L [facility] CO2 28 22 - 32 mmol/L [facility] Anion gap 12 2 - 15 mmol/L [facility] BUN 19 6 - 25 mg/dL [facility] Creatinine 1.05 0.80 - 1.30 mg/dL [facility] Glucose 98 70 - 199 mg/dL [facility] Comment: [...] 8.4(L) 8.5 - 10.3 mg/dL [facility] Bilirubin, total 0.5 0.1 - 1.2 mg/dL [facility] Protein, pl 6.4(L) 6.5 - 8.5 g/dL [facility] Albumin 3.1(L) 3.5 - 5.0 g/dL [facility] Alk phos 87 40 - 130 Units/L [facility] ALT 16 7 - 55 Units/L [facility] AST 18 10 - 50 Units/L [facility] Blood 02/17/2025 4:32 PM CDT 02/17/2025 4:43 PM CDT us Juanita Rogers MD LAB BLOOD ORDERABLES Final Result [facility] [place] [address] * (ABNORMAL) Urinalysis reflex to microscopic and culture Urine (02/17/2025 3:48 PM CDT) Color, ur Straw Yellow Clarity, ur Clear Clear [facility] Specific gravity, ur 1.015 1.003 - 1.030 [facility] pH, urine 6.0 [facility] Comment: Interpretive Data U rine pH is affected by diet, medications, systemic acid-base disturbances, and renal tubular function. pH may affect urinary stone formation. For example, urine pH below 6.0 may help reduce the tendency for calcium phosphate stones and pH greater than 6.0 may reduce the tendency for uric acid stone formation. Source: [facility] Current Interpretive Data was last revised on 2017 Protein, ur ql Trace Negative [facility] Glucose, ur ql Negative Negative [facility] Ketones, ur Trace Negative [facility] Bilirubin, ur Negative Negative [facility] Blood, ur Negative Negative [facility] Urobilinogen, ur <2.0 <2.0 mg/dL [facility] Nitrite, ur Negative Negative [facility] Leukocyte esterase, ur Trace(A) Negative [facility] UA reflex comment Reflex to microscopic UA will be performed. [facility] Urine 02/17/2025 3:48 PM CDT 02/17/2025 4:42 PM CDT Result [facility] Jean Marie Reid MD LAB MICROBIOLOGY - GENE RAL ORDERABLES Final Result Performing Organization Address City/[facility]/ZIP Co de Phone Number [facility] [place] [address] * Urinalysis, microscopic only (02/17/2025 3:48 PM CDT) WBC, ur 0-5 0 - 5 /HPF RBC, ur 0-2 0 - 2 /HPF [facility] Epithelial cells, squamous, ur 1-5 0 - 5 /HPF [facility] Urine 02/17/2025 3:48 PM CDT 02/17/2025 4:42 PM CDT Result [facility] Jean Marie Reid MD LAB URINE ORDERABLES Fi nal Result Performing Organization Address [facility] Co de Phone Number [facility] [place] [address] * Urine culture Urine, suprapubic catheter (02/17/2025 3:48 PM CDT) Report Final Report: Less than 100,000 colonies/mL (clinically insignificant growth based on current clinical standards) Organism (CLINICALLY INSIGNIFICANT GROWTH [facility] Urine, suprapubic catheter 02/17/2025 3:48 PM CDT 02/17/2025 4:40 PM CDT Narrative [facility] - 02/18/2025 6:14 PM CDT Specimen received in a sterile container. Indications for Culture:->Recent positive UA Testing performed by [facility] ([phone]) Jean Marie Reid MD LAB MICROBIOLOGY - GENE RAL ORDERABLES Final Result Performing Organization Address City/[facility] Co de Phone Number [facility] [place] [address] * COLONOSCOPY (01/01/2020 8:32 AM CDT) Anatomical Region Laterality Modality Other Narrative Procedure Note Madi Melendez MD - 01/01/2020 8:32 AM CDT ENDOSCOPY LAB Patient Name: Jerome Askew Procedure Date: 01/01/2020 8:32 AM Admit Type: Outpatient Room: [facility] Date of : 1950 Instrument Name: [id number] Gender: Male Note Status: Finalized Procedure: Colonoscopy Indications: Abdominal pain in the left lower quadrant,constipation, date of last scope unknown, better with [id number] Comorbidities spastic paraplegia Providers: Madi Melendez M.D. [...] 5 years for surveillance given polyp discovery.Continue [facility] 72mcgs. Attending Participation: I personally performed the [...] ago Cortney Viveros RN 02/10/2021 04/23/[id number] [place] [address] [facility] MEDICARE AET[employer] [facility] [id number] [place] [address] MEDICARE [id number] [place] [id number] MEDICARE IDPA [id number] [place] [address] [employer] MEDICARE [facility] Advance Directives For more information, please contact: [phone] Documents on File Type Date Recorded Patient High Pressure Operator Expl anation ADVANCE DIRECTIVE 03/15/2025 7:55 AM POLST ADVANCE DIRECTIVE 02/25/2025 11:32 AM POLS T ADVANCE DIRECTIVE 02/22/2025 11:19 AM POLS T ADVANCE DIRECTIVE 02/11/2021 10:49 AM DNR ADVANCE DIRECTIVE 12/27/2019 8:11 AM DNR ADVANCE DIRECTIVE 06/15/2013 12:00 AM POW ER OF [facility] EXPERIENCE REPRESENTATIVE FINANCIAL/MEDICAL * Full Code (Latest Code Status on File) Date Activated Date Inactivated Comments 05/03/2025 8:41 PM 05/08/2025 7:08 PM * Full Code Date Activated Date Inactivated Comments 02/25/2025 2:55 PM 03/05/2025 7:58 PM * Full Code Date Activated Date Inactivated Comments 02/17/2025 8:56 PM 02/19/2025 6:17 PM * Full Code Date Activated Date Inactivated Comments 06/21/2024 4:44 AM 06/23/2024 7:41 PM * Full Code Date Activated Date Inactivated Comments 04/24/2024 7:12 PM 04/26/2024 8:33 PM Care Teams Appliance Parts Counter Clerk Relationship Specialty Start Date End Date Shant Loaiza MD [address] [facility] [place] [address] PCP - General Internal Medicine 04/04/25 Derick Madsen MD [address] [facility] [address] [address] Consulting Physician Infectious Diseases 05/08/25
--- OUTSIDE RECORDS SUMMARY | 2025-05-16 12:16 | XMS_ITS | Encounter Summary ---
Author Organization [facility] Address [address] [place] [address] Care Team Providers Care Supervisor Home Economics Name Role Phone Unavailable Primary Care Provider Unavailabl e Encounter Details Date Type Department Care Team (Latest Contact Info) Description 03/15/2006 Inpatient Historical HIS PATIENT IN A BED Yenny Hauser MD NO ADDRESS ON FILE Devan Agrawal MD [address] [facility] 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.] Final Re sult Performing Organization Address City/[facility] Co de Phone Number INTERFACE SYSTEM Refer to clinic/hospital department * VANCOMYCIN LEVEL TROUGH (03/18/2006 11:30 AM CDT) Pathologist [facility] VANCOMYCIN, TROUGH 11.5 5.0 - 15.0 ug/mL INTERFACE SYSTEM Comment: Vancomycin Trough Toxic Level= >15.0 ug/mL 03/18/2006 11:3 0 AM CDT Yenny Hauser MD CHEMISTRY ORDERABLES Final Re sult Performing Organization Address [facility] Co de Phone [...] Final Res ult Performing Organization Address City/[facility] de Phone Number INTERFACE SYSTEM Refer [...] Resu lt Performing Organization Address [facility] Phone Number INTERFACE SYSTEM Refer [...] Final Result Performing Organization Address [facility] Phone Number INTERFACE SYSTEM Refer [...] Final Result Performing Organization Address [facility] Phone Number INTERFACE SYSTEM Refer to clinic/hospital department * (ABNORMAL) C-REACTIVE PROTEIN (03/17/2006 4:45 AM CDT) CRP 2.4(H) 0.0 - 0.8 mg/dL INTERFACE SYSTEM 03/17/2006 4:45 AM CDT Historical Provider CHEMISTRY ORDERABLES Final R esult Performing Organization Address [facility] Phone Number INTERFACE SYSTEM Refer [...] Final R esult Performing Organization Address City/[facility] Phone Number INTERFACE SYSTEM Refer to clinic/hospital department * (ABNORMAL) ACETONE QUALITATIVE (03/16/2006 6:30 PM CDT) ACETONE QUAL 2+ (30 mg/dL)(A) Neg (<10 mg/dL) INTERFACE SYSTEM 03/16/2006 6:30 PM CDT us Historical Provider CHEMISTRY ORDERABLES Final R esult Performing Organization Address [facility] Phone Number INTERFACE SYSTEM Refer to clinic/hospital department * LACTIC ACID (03/16/2006 6:30 PM CDT) LACTIC ACID 1.0 0.5 - 2.2 mmol/L INTERFACE SYSTEM 03/16/2006 6:30 PM CDT us Historical Provider CHEMISTRY ORDERABLES Final R esult Performing Organization Address [facility] Phone Number INTERFACE SYSTEM Refer [...] Resu lt Performing Organization Address [facility] Phone Number INTERFACE SYSTEM Refer [...] ORDERABLES Final Result Performing Organization Address City/[facility] Phone Number INTERFACE SYSTEM Refer [...] Final R esult Performing Organization Address City/[facility] de Phone Number INTERFACE SYSTEM Refer [...] Res ult Performing Organization Address [facility] Phone Number INTERFACE SYSTEM Refer [...] Res ult Performing Organization Address [facility] de Phone Number INTERFACE SYSTEM Refer [...]
--- OUTSIDE RECORDS SUMMARY | 2025-05-16 12:16 | XMS_ITS | Encounter Summary ---
Author Organization [facility] Address [address] [place] [address] Care Team Providers Care Wet Process Operator Name Role Phone Unavailable Primary Care Provider Unavailabl e Encounter Details Date Type Department Care Team (Late st Contact Info) Description 01/04/2006 Outpatient Historical [facility] Trauma and General Surgery [address] [facility] [place] [address] Jayden James MD [address] [facility] [place] [address] Social History Tobacco Use Types Packs/Day Years Used Date Smoking Tobacco: Never Assessed Sex and Gender Information Value Date Recorded Sex Assigned at Not on file Legal 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
--- OUTSIDE RECORDS SUMMARY | 2025-05-16 12:17 | XMS_ITS | Encounter Summary ---
Author Organization [facility] Address [address] [place] [address] Care Team Providers Care Urologic Surgeon Name Role Phone Unavailable Primary Care Provider Unavailabl e Encounter Details Date Type Department Care Team (Late st Contact Info) Description 01/10/2006 Outpatient Historical [facility] Trauma and General Surgery [address] [facility] [address] [address] [place] [address] [place] [address] Social History Tobacco Use Types Packs/Day Years Used Date Smoking Tobacco: Never Assessed Sex and Gender Information Value Date Recorded Sex Assigned at Not on file 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
--- OUTSIDE RECORDS SUMMARY | 2025-05-16 12:17 | XMS_ITS | Clinical Summary ---
Author Organization [facility] Administrative Offices Address [address] [place] [address] Care Team Providers Care Debarker Operator Name Role Phone Unavailable Primary Care [...] daily. 06/14/20 Active naloxone (NARCAN) 4 mg/spray [place], Non-Aerosol Administer 4 mg in each nostril [...] (04/21/2023): Last Assessment & Plan: H/o L CLIENT 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 infarct 2019, continue asa/statin Urinary tract infection [...] that has since passed. Urine cx from [facility] on 05/04 also growing [...] to reach son and obtained collateral from [facility] - CT Head today. [...] oxycodone prn. Baclofen pump rx'd by the [facility]. Iron deficiency anemia, unspecified 10/26/2012 Gastric [...] Plan: Uses wheelchair at baseline. Resides at [facility]. Has baclofen pump/neurostimulator in place. 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
--- OUTSIDE RECORDS SUMMARY | 2025-05-16 12:17 | XMS_ITS | Encounter Summary ---
Author Organization [facility] Address [address] [place] [address] Care Team Providers Care Waste Water Operator Name Role Phone Unavailable Primary Care Provider Unavailabl e Encounter Details Date Type Department Care Team (Late st Contact Info) Description 09/26/2019 Lab Requisition [facility] Laboratory Services [address] [place] [address] [facility], External Provider [address] [place] [address] Unspecified abnormal findings in urine Social History Tobacco Use Types Packs/Day Years Used Date Smoking Tobacco: Never Assessed Sex and Gender Information Value Date Recorded Sex Assigned at Not on file 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 Gender Identity Not on file Sexual [...] - 145 mmol/L 09/26/2019 8:53 PM CDT [facility] POTASSIUM 5.1 3.4 - 5.1 mmol/L 09/26/2019 8:53 PM CDT [facility] CHLORIDE 105 98 - 107 mmol/L 09/26/2019 8:53 PM [facility] CO2 23 22 - 29 mmol/L 09/26/2019 8:53 PM [facility] CALCIUM 8.6 8.6 - 10.4 mg/dL 09/26/2019 8:53 PM [facility] BUN 28(H) 6 - 20 mg/dL 09/26/2019 8:53 PM [facility] CREATININE 1.07 0.67 - 1.17 mg/dL 09/26/2019 8:53 PM [facility] Comment:The GFR result is no t clinically significant on patients <18 or >70 years of age. GLUCOSE 83 74 - 99 mg/dL 09/26/2019 8:53 PM [facility] TOTAL PROTEIN 6.7 6.3 - 8.7 g/dL 09/26/2019 8:53 PM [facility] ALBUMIN 4.2 3.5 - 5.2 g/dL 09/26/2019 8:53 PM [facility] BILIRUBIN TOTAL 0.3 0.2 - 1.3 mg/dL 09/26/2019 8:53 PM [facility] ALKALINE PHOSPHATASE 99 40 - 150 U/L 09/26/2019 8:53 PM [facility] AST 18 0 - 41 U/L 09/26/2019 8:53 PM [facility] ALT 18 0 - 41 U/L 09/26/2019 8:53 PM [facility] GFR >60 mL/min/1.7 3 sq meter 09/26/2019 8:53 PM [facility] Comment: eGFR has not been [...] 3 sq meter 09/26/2019 8:53 PM CDT [facility] ANION GAP 14 8 - 16 mmol/L 09/26/2019 8:53 PM CDT [facility] Blood BLOOD SPECIMEN / Unknown Collection / Unknown 09/26/2019 3:44 PM CDT 09/26/2019 8:17 PM CDT us External Provider [facility] CHEMISTRY ORDERABLES Johanne l Result [facility] CLIA# [id number] [address] [place] [address] * (ABNORMAL) CBC WITH DIFFERENTIAL (09/26/2019 3:44 PM CDT) WBC 6.6 4.5 - 10.5 K/uL 09/26/2019 8:26 PM CDT [facility] RBC 3.80(L) 4.50 - 5.40 M/uL 09/26/2019 8:26 PM CDT [facility] HEMOGLOBIN 11.5(L) 13.6 - 16.5 g/dL 09/26/2019 8:26 PM CDT [facility] HEMATOCRIT 34.3(L) 40.0 - 48.0 % 09/26/2019 8:26 PM CDT [facility] MCV 90.2 82.0 - 99.0 fL 09/26/2019 8:26 PM CDT [facility] MCH 30.2 27.8 - 34.5 pg 09/26/2019 8:26 PM CDT [facility] MCHC 33.5 32.5 - 35.5 g/dL 09/26/2019 8:26 PM CDT [facility] RDW 15.8(H) 11.5 - 14.5 % 09/26/2019 8:26 PM CDT [facility] PLATELETS 175 160 - 420 K/uL 09/26/2019 8:26 PM CDT [facility] MPV 10.2 8.7 - 12.7 fL 09/26/2019 8:26 PM CDT [facility] NEUTROPHILS 68 45 - 70 % 09/26/2019 8:26 PM CDT [facility] LYMPHOCYTES 16 16 - 45 % 09/26/2019 8:26 PM CDT [facility] MONOCYTES 10 3 - 13 % 09/26/2019 8:26 PM CDT [facility] EOSINOPHILS 5 0 - 7 % 09/26/2019 8:26 PM CDT [facility] BASOPHILS 1 0 - 2 % 09/26/2019 8:26 PM CDT [facility] NEUTROPHIL ABSOLUTE 4.50 1.90 - 7.00 K/uL 09/26/2019 8:26 PM CDT [facility] LYMPHOCYTE ABSOLUTE 1.10 0.70 - 4.50 K/uL 09/26/2019 8:26 PM CDT [facility] MONOCYTE ABSOLUTE 0.60 0.10 - 1.30 K/uL 09/26/2019 8:26 PM CDT [facility] EOSINOPHIL ABSOLUTE 0.40 0.00 - 0.70 K/uL 09/26/2019 8:26 PM CDT [facility] BASOPHILS ABSOLUTE 0.00 0.00 - 0.20 K/uL 09/26/2019 8:26 PM CDT [facility] Blood BLOOD SPECIMEN / Unknown Collection / Unknown 09/26/2019 3:44 PM CDT 09/26/2019 8:17 PM CDT us External Provider [facility] HEMATOLOGY ORDERABLES Fin al Result [facility] CLIA# [id number] [address] [place] [address] * (ABNORMAL) URINALYSIS WITH REFLEX MICROSCOPIC (09/26/2019 3:00 PM CDT) COLOR UA Yellow Pale to Dark Yellow 09/26/2019 8:52 PM CDT [facility] CLARITY UA Slightly Cloudy(A) Clear 09/26/2019 8:52 PM CDT [facility] SPECIFIC GRAVITY UA 1.019 1.003 - 1.035 09/26/2019 8:52 PM CDT [facility] PH UA 5.0 5.0 - 8.0 09/26/2019 8:52 PM CDT [facility] LEUKOCYTE ESTERASE UA Negative Negative 09/26/2019 8:52 PM CDT [facility] NITRITE UA Negative Negative 09/26/2019 8:52 PM CDT [facility] PROTEIN UA Negative Negative 09/26/2019 8:52 PM CDT [facility] GLUCOSE UA Negative Negative 09/26/2019 8:52 PM CDT [facility] KETONES UA Negative Negative 09/26/2019 8:52 PM CDT [facility] UROBILINOGEN UA Normal <2.0 mg/dL 0 8:52 PM CDT [facility] BILIRUBIN UA Negative Negative 09/26/2019 8:52 PM CDT [facility] BLOOD UA Negative Negative 09/26/2019 8:52 PM CDT [facility] Comment:Ascorbic acid may ca use false negative results for blood. A microscopic review was reflexed to rule out this interference. WBC UA 0-2 0 - 2 /hpf 09/26/2019 8:52 PM [facility] RBC UA 0-2 0 - 2 /hpf 09/26/2019 8:52 PM CDT [facility] BACTERIA UA 1+(A) Negative /hpf 09/26/2019 8:52 PM CDT [facility] EPITHELIAL CELLS, URINE 0-5 0 - 5 /hpf 09/26/2019 8:52 PM CDT [facility] HYALINE CAST 0-2 None Seen, 0-2 /lpf 09/26/2019 8:52 PM CDT [facility] Ascorbic Acid UA Positive(A) Negative 020 8:52 PM CDT [facility] Urine URINE SPECIMEN OBTAINED BY CLEAN CATCH PROCEDURE / Unknown Collection / Unknown 09/26/2019 3:00 PM CDT 09/26/2019 8:17 PM CDT us External Provider [facility] URINE ORDERABLES Final Re sult [facility] CLIA# [id number] [address] [place] [address] documented in this encounter Visit Diagnoses Diagnosis Unspecified abnormal findings in urine documented in this encounter
--- OUTSIDE RECORDS SUMMARY | 2025-05-16 12:17 | XMS_ITS | Encounter Summary ---
Author Organization [facility] Address 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
--- OUTSIDE RECORDS SUMMARY | 2025-05-16 12:17 | XMS_ITS | Encounter Summary ---
Author Organization [facility] Address [address] [place] [address] Care Team Providers Care Ceramic Restorer Name Role Phone Unavailable Primary Care Provider Unavailabl e Encounter Details Date Type Department Care Team (Late st Contact Info) Description 01/12/2006 Outpatient Historical [facility] Trauma and General Surgery [address] [facility] [address] [address] [place] [address] [place] [address] Social History Tobacco Use Types Packs/Day Years Used Date Smoking Tobacco: Never Assessed Sex and Gender Information Value Date Recorded Sex Assigned at Not on file 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
--- OUTSIDE RECORDS SUMMARY | 2025-05-16 12:17 | XMS_ITS | Encounter Summary ---
Author Organization [facility] Address [address] [place] [address] Care Team Providers Care Quality Control Clerk Name Role Phone Unavailable Primary Care Provider Unavailabl e Encounter Details Date Type Department Care Team (Late st Contact Info) Description 01/11/2006 Outpatient Historical [facility] Trauma and General Surgery [address] [facility] [address] [id number] [place] [address] [place] [address] Social History Tobacco Use Types Packs/Day Years Used Date Smoking Tobacco: Never Assessed Sex and Gender Information Value Date Recorded Sex Assigned at Not on file 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
--- NOTE | 2025-05-16 12:28 | ECG_ITS ---
Test Date: 2025-05-16 12:52:50 Measurements Intervals [place] Rate: 75 P: 250 GA: 348 QRS: 26 QRSD: 106 T: 48 QT: 370 QTc: 414 Interpretive Statements SIGNIFICANT BASELINE ARTIFACT PRECLUDES ACCURATE INTERPRETATION TECHNICALLY POOR TRACING - PLEASE REPEAT ECG IF CLINICALLY APPROPRIATE Electronically Signed On 05-16-2025 13:24:38 ASSOCIATE PROFESSOR by Arnoldo Bullock M.D.
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
--- OUTSIDE RECORDS SUMMARY | 2025-05-16 13:45 | XMS_ITS | Encounter Summary ---
Author Organization [facility] Address [address] [place] [address] Care Team Providers Care Centrifugal Wax Molder Name Role Phone Unavailable Primary Care Provider Unavailabl e Encounter Details Date Type Department Care Team (Late st Contact Info) Description 03/10/2006 Outpatient Historical [facility] Adult Hospitalists [address] [address] Rita Esqueda MD 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
--- OUTSIDE RECORDS SUMMARY | 2025-05-16 13:45 | XMS_ITS | Encounter Summary ---
Author Organization [facility] Address 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
--- OUTSIDE RECORDS SUMMARY | 2025-05-16 13:45 | XMS_ITS | Encounter Summary ---
Author Organization [facility] Address 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
--- OUTSIDE RECORDS SUMMARY | 2025-05-16 13:45 | XMS_ITS | Encounter Summary ---
Author Organization [facility] Address [address] [place] [address] Care Team Providers Care Auction Block Clerk Name Role Phone Rod Strauss MD Primary Care Provider + [phone] Encounter Details Date Type Department Care Team (Late st Contact Info) Description 03/13/2025 Lab Requisition [facility] [address] [place] [address] Unknown, Provider Social History Tobacco Use Types [...] medical care, and heating? Patient declined 05/31/2024 [facility] - Occupational [...] any time in the past 12 m [facility], were you homeless or living in a long term (including now)? Patient declined 05/31/2024 Sex and Gender Information Value Date Recorded Sex Assigned at Not on file Legal Sex Male 5:23 PM OFFICE SUPERVISOR Gender Identity Not on file Sexual Orientation Not on file documented as of this encounter Functional Status * Is person deaf or have serious hearing difficulty? Answer Date of Assessment Author Yes 06/01/2024 12:21 PM OFFICE SUPERVISOR Princess Ohara RN * Is person blind or have serious difficulty seeing? Answer Date of Assessment Author No 06/01/2024 12:21 PM OFFICE SUPERVISOR Princess Ohara RN * Does person have serious difficulty walking/climbing stairs? Answer Date of Assessment Author Yes 06/01/2024 12:21 PM OFFICE SUPERVISOR Princess Ohara RN * Does person have difficulty dressing/bathing? Answer Date of Assessment Author Yes 06/01/2024 12:21 PM OFFICE SUPERVISOR Princess Ohara RN * Does person have difficulty doing errands alone? Answer Date of Assessment Author Yes 06/01/2024 12:21 PM OFFICE SUPERVISOR Princess Ohara RN documented as of this encounter Mental Status * Does person have difficulty concentrating/remembering/making decisions? Answer Entry Date Author No 06/01/2024 12:21 PM OFFICE SUPERVISOR Princess Ohara RN documented in this [...] - 74 % 03/13/2025 6:26 PM CDT [facility] Lymphocyte % 1(L) 17 - 47 % 03/13/2025 6:26 PM CDT [facility] Monocyte % 7 3 - 11 % 03/13/2025 6:26 PM CDT [facility] Neutrophil Absolute 14.08(H) 1.60 - 7.50 x10E9/L 03/13/2025 6:26 PM CDT [facility] Lymphocyte Absolute 0.15(L) 1.00 - 4.40 x10E9/L 03/13/2025 6:26 PM CDT [facility] Monocyte Absolute 1.07(H) 0.15 - 1.00 x10E9/L 03/13/2025 6:26 PM CDT [facility] RBC Morphology NORMAL 03/13/2025 6:26 PM CDT [facility] Blood BLOOD SPECIMEN / Unknown 03/13/2025 4:40 PM CDT 03/13/2025 5:42 PM CDT us Provider Unknown LAB - HEMATOLOGY ORDERABLES Fin al Result [facility] [address] [place] [address] * (ABNORMAL) COMPREHENSIVE METABOLIC PANEL (03/13/2025 4:40 PM CDT) Glucose 118(H) 70 - 99 mg/dL 03/13/2025 6:07 PM CDT [facility] Sodium 135(L) 136 - 145 mmol/L 03/13/2025 6:07 PM CDT [facility] Potassium 3.6 3.5 - 5.1 mmol/L 03/13/2025 6:07 PM [facility] Chloride 98 98 - 107 mmol/L 03/13/2025 6:07 PM [facility] CO2 27 22 - 29 mmol/L 03/13/2025 6:07 PM [facility] Calcium 7.7(L) 8.4 - 10.4 mg/dL 03/13/2025 6:07 PM [facility] Anion Gap 10 6 - 16 mmol/L 03/13/2025 6:07 PM [facility] BUN 23 7 - 26 mg/dL 03/13/2025 6:07 PM [facility] Creatinine 0.74 0.72 - 1.25 mg/dL 03/13/2025 6:07 PM [facility] Alkaline Phosphatase 94 40 - 150 U/L 03/13/2025 6:07 PM [facility] ALT 31 6 - 57 U/L 03/13/2025 6:07 PM [facility] AST 39 10 - 48 U/L 03/13/2025 6:07 PM [facility] Protein Total 5.6(L) 6.4 - 8.3 gm/dL 03/13/2025 6:07 PM [facility] Albumin 2.5(L) 3.1 - 4.5 gm/dL 03/13/2025 6:07 PM [facility] Bilirubin Total 0.5 0.2 - 1.2 mg/dL 03/13/2025 6:07 PM [facility] eGFR by CKD-EPI >90 >=90 mL/min/1.7 3 m2 03/13/2025 6:07 PM [facility] Comment:Estimated Glomerular Filtration Rate (eGFR) calculated using the CKD-EPI Creatinine Equation (2020), per the National Kidney Foundation and [place] [employer]ph[employer] recommendations. Blood BLOOD SPECIMEN / Unknown Venipuncture / Unknown 03/13/2025 4:40 PM CDT 03/13/2025 5:42 PM T us Provider Unknown LAB - CHEMISTRY ORDERABLES Johanne l Result [facility] [address] [place] [address] * (ABNORMAL) CBC WITH DIFFERENTIAL (03/13/2025 4:40 PM CDT) WBC 15.3(H) 4.0 - 10.7 x10E9/L 03/13/2025 6:26 PM CDT [facility] RBC Count 2.83(L) 4.30 - 5.80 x10E12/L 03/13/2025 6:26 PM CDT [facility] Hemoglobin 7.9(L) 13.3 - 17.5 g/dL 03/13/2025 6:26 PM CDT [facility] Hematocrit 25.5(L) 38.7 - 51.1 % 03/13/2025 6:26 PM CDT [facility] MCV 90.1 80.0 - 98.0 fL 03/13/2025 6:26 PM CDT [facility] MCH 27.9 26.7 - 33.6 pg 03/13/2025 6:26 PM CDT [facility] MCHC 31.0(L) 31.7 - 36.3 g/dL 03/13/2025 6:26 PM CDT [facility] RDW-CV 15.7(H) 11.3 - 14.8 % 03/13/2025 6:26 PM CDT [facility] Platelet Count 266 150 - 420 x10E9/L 03/13/2025 6:26 PM CDT [facility] MPV 10.8 7.8 - 11.4 fL 03/13/2025 6:26 PM CDT [facility] Blood BLOOD SPECIMEN / Unknown 03/13/2025 4:40 PM CDT 03/13/2025 5:42 PM CDT us Provider Unknown LAB - HEMATOLOGY ORDERABLES Fin al Result [facility] [address] [place] [address] documented in this encounter Visit Diagnoses Not on filedocumented in this encounter Additional Health Concerns Infection Onset Date Last Indicated Resolved Time ESBL GNR 06/01/2024 06/01/2024 documented as of this encounter Care Teams Auction Block Clerk Relationship Specialty Start Date End Date Rod Strauss MD [address] [place] [id number] PCP - General Internal Medicine 06/15/24 documented as of this encounter
--- OUTSIDE RECORDS SUMMARY | 2025-05-16 13:45 | XMS_ITS | Clinical Summary ---
Author Organization [facility] Address [address] [place] [address] Care Team Providers Care Pack Mule Worker Name Role Phone Rod Strauss MD Primary Care Provider [phone] Source Comments [facility],non-owned Affiliates and Associated Physician Practices is amultiple site organization consisting of ambulatory clinics and hospital sitesin [place], [place], [place] and [place]. This disclosure is being madepursuant to the Care Everywhere program and may not contain all information available regarding this patient. 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 Follows with [facility]. -continue home metoprolol 25mg [...] (05/30/2024): Last Assessment & Plan: H/o L COCKTAIL WAITRESS infarct 2019, continue asa/statin Hydronephrosis 05/10/2019 Pyelonephritis [...] Department Care Team Description 03/13/2025 Lab Requisition [facility] [address] [place] [id number] Unknown, Provider from Last 3 Months Social [...] any time in the past 12 [facility], were you homeless or living in a fdc (including now)? Patient declined 05/31/2024 Sex and Gender Information Value Date Recorded Sex Assigned at Not on file Legal Sex Male 5:23 PM NAVIGATION OFFICER Gender Identity Not on file Sexual Orientation Not on file Last Filed Vital Signs Vital Sign Reading Time Taken Comments Blood Pressure 135/77 06/15/2024 11:48 AM NAVIGATION OFFICER Pulse 74 06/15/2024 11:48 AM NAVIGATION OFFICER Temperature 36.4 C (97.6 F) 06/15/2024 8:35 AM NAVIGATION OFFICER Respiratory Rate 16 06/15/2024 11:48 AM NAVIGATION OFFICER Oxygen Saturation 97% 06/15/2024 11:48 AM NAVIGATION OFFICER Inhaled Oxygen Concentration 40% 06/04/2024 9 :43 AM NAVIGATION OFFICER Weight 88.5 kg (195 lb) 06/15/2024 8:35 AM NAVIGATION OFFICER Height 190.5 cm (6' 3) 06/15/2024 8:35 AM NAVIGATION OFFICER Body Mass Index 24.37 06/15/2024 8:35 AM NAVIGATION OFFICER Plan of Treatment Health Maintenance Due Date [...] this topic Medical Devices Implanted Type Area Manager Residential Device Identifier Shelf Expiration Date Model / Serial / Lot Synchromed Iii Pump Implanted:Qty: 1 on 06/04/2024 by Deshawn Schultz MD at [facility] Left: Abdomen [employer] 08/18/2025 8667-40 / [id number] / Ascenda Implanted:Qty: 1 on 06/04/2024 by Deshawn Schultz MD at [facility] Left: Abdomen [employer] 12/14/2024 [id number] / / [id number] Procedures Procedure Name Priority Date/Time Associated Diagnosis Comments DIFFERENTIAL MANUAL STAT 03/13/2025 4 :40 PM CDT COMPREHENSIVE METABOLIC PANEL STAT 03/13/2025 4:40 PM CDT CBC W AUTO DIFFERENTIAL STAT 03/13/2025 4:40 PM CDT HEPATITIS C AB SCREEN RFLX NAAT QUANT STAT 06/06/2024 11:49 AM NAVIGATION OFFICER from Last 3 Months or Most Recently [...] ORDERABLES Fin al Result Performing Organization Address City/[facility]/ZIP Co de Phone Number [facility] [address] [place] [address] * (ABNORMAL) CBC WITH DIFFERENTIAL (03/13/2025 4:40 PM CDT) [facility] WBC 15.3(H) 4.0 - 10.7 x10E9/L 03/13/2025 6:26 PM CDT [facility] RBC Count 2.83(L) 4.30 - 5.80 x10E12/L 03/13/2025 6:26 PM CDT [facility] Hemoglobin 7.9(L) 13.3 - 17.5 g/dL 03/13/2025 6:26 PM CDT [facility] Hematocrit 25.5(L) 38.7 - 51.1 % 03/13/2025 6:26 PM CDT [facility] MCV 90.1 80.0 - 98.0 fL 03/13/2025 6:26 PM CDT [facility] MCH 27.9 26.7 - 33.6 pg 03/13/2025 6:26 PM CDT [facility] MCHC 31.0(L) 31.7 - 36.3 g/dL 03/13/2025 6:26 PM CDT [facility] RDW-CV 15.7(H) 11.3 - 14.8 % 03/13/2025 6:26 PM CDT [facility] Platelet Count 266 150 - 420 x10E9/L 03/13/2025 6:26 PM CDT [facility] MPV 10.8 7.8 - 11.4 fL 03/13/2025 6:26 PM CDT [facility] Blood BLOOD SPECIMEN / Unknown 03/13/2025 4:40 PM CDT 03/13/2025 5:42 PM CDT Provider Unknown LAB - HEMATOLOGY ORDERABLES Fin al Result Performing Organization Address City/[facility]/ZIP Co de Phone Number [facility] [address] [place] [address] * (ABNORMAL) COMPREHENSIVE METABOLIC PANEL (03/13/2025 4:40 PM CDT) [facility] Glucose 118(H) 70 - 99 mg/dL 03/13/2025 6:07 PM [facility] Sodium 135(L) 136 - 145 mmol/L 03/13/2025 6:07 PM [facility] Potassium 3.6 3.5 - 5.1 mmol/L 03/13/2025 6:07 PM [facility] Chloride 98 98 - 107 mmol/L 03/13/2025 6:07 PM [facility] CO2 27 22 - 29 mmol/L 03/13/2025 6:07 PM [facility] Calcium 7.7(L) 8.4 - 10.4 mg/dL 03/13/2025 6:07 PM [facility] Anion Gap 10 6 - 16 mmol/L 03/13/2025 6:07 PM [facility] BUN 23 7 - 26 mg/dL 03/13/2025 6:07 PM [facility] Creatinine 0.74 0.72 - 1.25 mg/dL 03/13/2025 6:07 PM [facility] Alkaline Phosphatase 94 40 - 150 U/L 03/13/2025 6:07 PM [facility] ALT 31 6 - 57 U/L 03/13/2025 6:07 PM [facility] AST 39 10 - 48 U/L 03/13/2025 6:07 PM [facility] Protein Total 5.6(L) 6.4 - 8.3 gm/dL 03/13/2025 6:07 PM [facility] Albumin 2.5(L) 3.1 - 4.5 gm/dL 03/13/2025 6:07 PM [facility] Bilirubin Total 0.5 0.2 - 1.2 mg/dL 03/13/2025 6:07 PM [facility] eGFR by CKD-EPI >90 >=90 mL/min/1.7 3 m2 03/13/2025 6:07 PM [facility] Comment:Estimated Glomerular Filtration Rate (eGFR) calculated using the CKD-EPI Creatinine Equation (2020), per the National Kidney Foundation and [employer] Neph[employer] recommendations. Blood BLOOD SPECIMEN / Unknown Venipuncture / Unknown 03/13/2025 4:40 PM CDT 03/13/2025 5:42 PM CDT Provider Unknown LAB - CHEMISTRY ORDERABLES Johanne l Result Performing Organization Address City/[facility] Co de Phone Number [facility] [address] [place] [address] * HEPATITIS C AB SCREEN RFLX NAAT QUANT (06/06/2024 11:49 AM NAVIGATION OFFICER) Hepatitis C Antibody Non-react lottie Non-reac tive 06/06/2024 1:01 PM NAVIGATION OFFICER [facility] Comment:Hepatitis C Antibody screen [...] Lab Venipuncture / Unknown 06/06/2024 11:49 AM NAVIGATION OFFICER 06/06/2024 12:05 PM NAVIGATION OFFICER Salena Griffin PRODUCT SUPPORT TECHNICIAN-CURB SETTER HELPER LAB - CHEMISTRY ORDERABLES F inal Result Performing Organization Address City/[facility] Co de Phone Number [address] [id number] [phone] from Last 3 Months or Most Recently Relevant to Health Maintenance Additional Health Concerns Infection Onset Date Last Indicated ESBL GNR 06/01/2024 06/01/[address] [place] [id number] [employer] Advance Directives * Full Code (Latest Code Status on File) Date Activated Date Inactivated Comments 05/31/2024 11:27 PM 06/09/2024 8:37 PM Care Teams Pack Mule Worker Relationship Specialty Start Date End Date Rod Strauss MD [address] [place] [id number] PCP - General Internal Medicine 06/15/24
--- OUTSIDE RECORDS SUMMARY | 2025-05-16 13:45 | XMS_ITS | Encounter Summary ---
Author Organization [employer] Address [address] [place] [address] Care Team Providers Care Chainstitch Sewing Machine Operator Name Role Phone Unavailable Primary Care Provider Unavailabl e Encounter Details Date Type Department Care Team (Latest Contact Info) Description 03/15/2006 Inpatient Historical HIS PATIENT IN A BED Yenny Hauser MD NO ADDRESS ON FILE Devan Agrawal MD [address] [facility] [address] [place] [address] Hypoxemia (Primary Dx) Social History Tobacco Use Types Packs/Day Years Used Date Smoking Tobacco: Never Assessed Sex and Gender Information Value Date Recorded Sex Assigned at Not on file Legal Sex Male 3:46 AM PRICING LEAD Gender Identity Not on file Sexual [...] Performing Organization Address City/[facility] Phone Number INTERFACE SYSTEM Refer to [...] Performing Organization Address City/[facility] Phone Number INTERFACE SYSTEM Refer to clinic/hospital department * MAGNESIUM LEVEL (03/19/2006 4:38 AM CDT) MAGNESIUM 1.7 1.5 - 2.5 mg/dL INTERFACE SYSTEM 03/19/2006 4:38 AM CDT Yenny Hauser MD CHEMISTRY ORDERABLES Final Re sult Performing Organization Address City/[facility] Co de Phone Number INTERFACE [...] Performing Organization Address City/[facility] Co de Phone Number INTERFACE SYSTEM Refer to clinic/hospital department * VANCOMYCIN LEVEL TROUGH (03/18/2006 11:30 AM CDT) Pathologist [facility] VANCOMYCIN, TROUGH 11.5 5.0 - 15.0 ug/mL INTERFACE SYSTEM Comment: Vancomycin Trough Toxic Level= >15.0 ug/mL 03/18/2006 11:3 0 AM CDT Yenny Hauser MD CHEMISTRY ORDERABLES Final Re sult Performing Organization Address [facility] Co de Phone Number INTERFACE [...] Performing Organization Address City/[facility] de Phone Number INTERFACE SYSTEM [...] Address [facility] Phone Number INTERFACE SYSTEM Refer to [...] Address [facility] Phone Number INTERFACE SYSTEM Refer to [...] Address [facility] Phone Number INTERFACE SYSTEM Refer to clinic/hospital department * (ABNORMAL) C-REACTIVE PROTEIN (03/17/2006 4:45 AM CDT) CRP 2.4(H) 0.0 - 0.8 mg/dL INTERFACE SYSTEM 03/17/2006 4:45 AM CDT Historical Provider CHEMISTRY ORDERABLES Final R esult Performing Organization Address [facility] Phone Number INTERFACE SYSTEM Refer to [...] Performing Organization Address City/[facility] Phone Number INTERFACE SYSTEM Refer to clinic/hospital department * (ABNORMAL) ACETONE QUALITATIVE (03/16/2006 6:30 PM CDT) ACETONE QUAL 2+ (30 mg/dL)(A) Neg (<10 mg/dL) INTERFACE SYSTEM 03/16/2006 6:30 PM CDT us Historical Provider CHEMISTRY ORDERABLES Final R esult Performing Organization Address [facility] Phone Number INTERFACE SYSTEM Refer to clinic/hospital department * LACTIC ACID (03/16/2006 6:30 PM CDT) LACTIC ACID 1.0 0.5 - 2.2 mmol/L INTERFACE SYSTEM 03/16/2006 6:30 PM CDT us Historical Provider CHEMISTRY ORDERABLES Final R esult Performing Organization Address [facility] Phone Number INTERFACE SYSTEM Refer to [...] Address [facility] Phone Number INTERFACE SYSTEM Refer to [...] Performing Organization Address City/[facility] Phone Number INTERFACE SYSTEM Refer to [...] Performing Organization Address City/[facility] de Phone Number INTERFACE SYSTEM [...] Address [facility] Phone Number INTERFACE SYSTEM Refer to [...] Address [facility] de Phone Number INTERFACE SYSTEM [...]
--- OUTSIDE RECORDS SUMMARY | 2025-05-16 13:45 | XMS_ITS | Encounter Summary ---
Author Organization [employer] Address [address] [place] [address] Care Team Providers Care Stone Paver Name Role Phone Unavailable Primary Care Provider Unavailabl e Encounter Details Date Type Department Care Team (Late st Contact Info) Description 01/13/2006 Outpatient Historical [facility] Support Serv. ([facility] Cardiology[facility]) [address] [place] [address] Phyllis Bajwa MD [address] [address] [address] [place] [address] Social History Tobacco Use Types Packs/Day Years Used Date Smoking Tobacco: Never Assessed Sex and Gender Information Value Date Recorded Sex Assigned at Not on file Legal Sex Male 3:46 AM EXHIBIT ARTIST Gender Identity Not on file Sexual Orientation Not on file documented as of this encounter Plan of Treatment Not on file documented as of this encounter Visit Diagnoses Not on filedocumented in this encounter
--- OUTSIDE RECORDS SUMMARY | 2025-05-16 13:45 | XMS_ITS | Encounter Summary ---
Author Organization [facility] Address [address] [place] [address] Care Team Providers Care Fuel Assembler Name Role Phone Unavailable Primary Care Provider Unavailabl e Encounter Details Date Type Department Care Team (Late st Contact Info) Description 03/16/2006 Outpatient Historical [facility] [address] [address] Venkatesh Yang MD Social History Tobacco Use Types Packs/Day Years Used Date Smoking Tobacco: Never Assessed Sex and Gender Information Value Date Recorded Sex Assigned at Not on file Legal Sex Male 3:46 AM WELL HEAD PUMPER Gender Identity Not on file Sexual Orientation Not on file documented as of this encounter Plan of Treatment Not on file documented as of this encounter Visit Diagnoses Not on filedocumented in this encounter
--- OUTSIDE RECORDS SUMMARY | 2025-05-16 13:45 | XMS_ITS | Encounter Summary ---
Author Organization [facility] Address [address] [place] [address] Care Team Providers Care Guide Cruise Name Role Phone Unavailable Primary Care Provider Unavailabl e Encounter Details Date Type Department Care Team (Late st Contact Info) Description 03/14/2006 Outpatient Historical [facility] [address] [place] [address] Devan Agrawal MD [address] [facility] 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
--- OUTSIDE RECORDS SUMMARY | 2025-05-16 13:45 | XMS_ITS | Clinical Summary ---
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 Department [address] [place] [address] Urinary tract infection without hematuria, site unspecified (Primary Dx) Discharge Disposition: Discharge to home or self care 03/02/2025 4:20 PM CDT Ancillary Procedure [facility] IP [address] [facility] [address] [place] [address] 03/02/2025 11:01 AM CDT Anesthesia Event [facility] Operating Room [address] [place] [address] Aman Fowler MD Saunders, Cesilia Edwards BOILER REPAIR SUPERVISOR 03/02/2025 9:55 AM CDT - 03/02/2025 12:10 PM CDT Surgery [facility] [address] [place] [address] Karyn Marina MD DEBRIDEMENT - SACRUM/ISCHIUM, LEFT BUTTOCK 02/25/2025 8:57 AM CDT - 03/05/2025 3:53 PM CDT Hospital Encounter [address] [address] Ezekiel Roberts MD Martin, Nathan R., MD Brito Rivera, Natalia, MD Van Stavern, Renee B., MD Kang, Peter, MD Dai, Xing, MD Weakness (Primary Dx); Wound of sacral region, initial encounter; Seizures (HCC) Discharge Disposition: Discharge to SNF 02/17/2025 1:43 PM CDT - 02/19/2025 2:09 PM CDT Hospital Encounter [address] [address] Juanita Rogers MD Martin, Nathan R., MD [...] cervical spinal cord, initial encounter ([facility]) 2005 Complicated by chronic pain with baclofen [...] often do you attend chur ch or hindu services? More than 4 times per year 04/15/2023 Do you belong to any clubs o r organizations such as episcopal groups, unions, fraternal or athletic groups, or [...] in a long-term (including now)? No 04/15/2023 Social Connection and Isolation Panel Answer Date Recorded In a typical week, how many times do you talk on the phone with family, friends, or neighbors? More than three times a week 05/04/2025 How often do you get togethe r with friends or relatives? More than three times a week 05/04/2025 How often do you attend chur ch or hindu services? More than 4 times per year 05/04/2025 Do you belong to any clubs o r organizations such as episcopal groups, unions, fraternal or athletic groups, or [...] any time in the past 12 m [facility], were you homeless or living in a long-term (including now)? No 05/04/2025 [facility] Utilities Answer Date Recorded In the [...] on file Legal Sex Male 7:31 PM FLAMER SEALER Gender Identity Not on file Sexual Orientation Not on file Last Filed Vital Signs Vital Sign Reading Time Taken Comments Blood Pressure 117/69 05/08/2025 7:31 AM FLAMER SEALER Pulse 80 05/08/2025 7:31 AM FLAMER SEALER Temperature 36.8 C (98.2 F) 05/08/2025 7:31 AM FLAMER SEALER Respiratory Rate 17 05/08/2025 7:31 AM FLAMER SEALER Oxygen Saturation 93% 05/08/2025 7:31 AM FLAMER SEALER Inhaled Oxygen Concentration - - Weight 68.9 [...] history exists Medical Devices Implanted Type Area Shrimp Peeling Machine Tender Device Identifier Shelf Expiration Date Model / Serial / Lot [employer] Coil Embolization Coated Detachable Helical Concerto [id number] Nylon Pb-7-61-[place] - [id number] Implanted:Qty: 1 on 04/01/2023 at [facility] [employer] 07/22/2025 NV-4-10-HEL IX / / [id number] [employer] Coil Embolization Coated Detachable Helical Concerto [id number] Nylon Ym-9-07-[place] - [id number] Implanted:Qty: 1 on 04/01/2023 at [facility] [employer] 09/23/2025 NV-5-20-HEL IX / / [id number] [employer] Coil Embolization Coated Detachable Helical Concerto [id number] Nylon Ay-8-51-[place] - [id number] Implanted:Qty: 1 on 04/01/2023 at [facility] [employer] 08/27/2025 NV-5-15-HEL IX / / [id number] [employer]es Angio-Seal Vip 6fr Closere Device [id number] - [id number] Implanted:Qty: 1 on 04/01/2023 at [facility] [employer] 10/03/2023 [id number] / / [id number] Procedures Procedure Name Priority Date/Time Associated Diagnosis Comments HEMOGLOBIN AND HEMATOCRIT Timed 05/08/2025 1:02 PM FLAMER SEALER EGFR Routine 05/08/2025 4:41 AM FLAMER SEALER DIFFERENTIAL AUTO Routine 05/08/2025 4:4 1 AM FLAMER SEALER PHOSPHORUS Routine 05/08/2025 4:41 AM FLAMER SEALER BASIC METABOLIC PANEL Routine 05/08/2025 4:41 AM FLAMER SEALER CBC WITH AUTO DIFFERENTIAL Routine 05/08/2025 4:41 AM FLAMER SEALER EGFR Routine 05/07/2025 4:57 AM FLAMER SEALER DIFFERENTIAL AUTO Routine 05/07/2025 4:5 7 AM FLAMER SEALER PHOSPHORUS Routine 05/07/2025 4:57 AM FLAMER SEALER MAGNESIUM Routine 05/07/2025 4:57 AM FLAMER SEALER BASIC METABOLIC PANEL Routine 05/07/2025 4:57 AM FLAMER SEALER CBC WITH AUTO DIFFERENTIAL Routine 05/07/2025 4:57 AM FLAMER SEALER EGFR Routine 05/06/2025 6:35 AM FLAMER SEALER DIFFERENTIAL AUTO Routine 05/06/2025 6:3 5 AM FLAMER SEALER PHOSPHORUS Routine 05/06/2025 6:35 AM FLAMER SEALER MAGNESIUM Routine 05/06/2025 6:35 AM FLAMER SEALER BASIC METABOLIC PANEL Routine 05/06/2025 6:35 AM FLAMER SEALER CBC WITH AUTO DIFFERENTIAL Routine 05/06/2025 6:35 AM FLAMER SEALER EGFR Routine 05/05/2025 5:20 AM CDT CREATINE [...] WITHOUT DIFFERENTIAL Routine 03/01/2025 8:02 PM CDT RISK ASSESSOR EVALUATE AND TREAT FIBEROPTIC ENDOSCOPIC SWALLOW Routine [...] (ABNORMAL) Hemoglobin and hematocrit (05/08/2025 1:02 PM FLAMER SEALER) Hgb 7.4(L) 13.0 - 17.5 g/dL Hct 24.5(L) 38.9 - 50.3 % [facility] Blood 05/08/2025 1:02 PM FLAMER SEALER 05/08/2025 1:07 PM FLAMER SEALER Andreas Gregorio MD LAB BLOOD ORDERABLES Final Result Performing Organization Address City/[facility] Co de Phone Number [facility] [address] [address] * eGFR (05/08/2025 4:41 AM FLAMER SEALER) Pathologist [facility] eGFR >90 >=60 mL/min/1. 73 m2 [...] last reviewed 2021. Blood 05/08/2025 4:41 AM FLAMER SEALER 05/08/2025 5:07 AM FLAMER SEALER Dillan Fonseca MD LAB BLOOD ORDERABLES Final Result Performing Organization Address City/[facility]/ZIP Co de Phone Number [address] [place] [address] * (ABNORMAL) Differential, auto (05/08/2025 4:41 AM FLAMER SEALER) [facility] Neutrophil abs 4.64 1.50 - 6.50 K/cumm Imm gran abs 0.03 0.00 - 0.10 K/cumm [facility] Lymphocyte abs 0.81 0.80 - 3.30 K/cumm [facility] Monocyte abs 0.88(H) 0.20 - 0.80 K/cumm [facility] Eosinophil abs 0.26 0.00 - 0.50 K/cumm [facility] Basophil abs 0.02 0.00 - 0.10 K/cumm [facility] Neutrophil pct 69.8 % [facility] Comment: Interpretive Data Percent cell count reference ranges are not reported, since discordance with absolute values may lead to misinterpretation of CBC data. Current Interpretive Data was last revised on 2017. Imm gran pct 0.5 % [facility] Comment: Interpretive Data Percent cell count reference ranges are not reported, since discordance with absolute values may lead to misinterpretation of CBC data. Current Interpretive Data was last revised on 2017. Lymphocyte pct 12.2 % [facility] Comment: Interpretive Data Percent cell count reference ranges are not reported, since discordance with absolute values may lead to misinterpretation of CBC data. Current Interpretive Data was last revised on 2017. Monocyte pct 13.3 % [facility] Comment: Interpretive Data Percent cell count reference ranges are not reported, since discordance with absolute values may lead to misinterpretation of CBC data. Current Interpretive Data was last revised on 2017. Eosinophil pct 3.9 % [facility] Comment: Interpretive Data Percent cell count reference ranges are not reported, since discordance with absolute values may lead to misinterpretation of CBC data. Current Interpretive Data was last revised on 2017. Basophil pct 0.3 % [facility] Comment: Interpretive Data Percent cell count reference ranges are not reported, since discordance with absolute values may lead to misinterpretation of CBC data. Current Interpretive Data was last revised on 2017. Blood 05/08/2025 4:41 AM FLAMER SEALER 05/08/2025 5:07 AM FLAMER SEALER us Dillan Fonseca MD LAB BLOOD ORDERABLES Final Result [facility] [address] [facility] Department [place] [address] * (ABNORMAL) CBC with auto differential (05/08/2025 4:41 AM FLAMER SEALER) [facility] WBC 6.64 3.80 - 9.90 K/cumm Hgb 7.1(L) 13.0 - 17.5 g/dL [facility] Hct 23.0(L) 38.9 - 50.3 % [facility] Plt 299 150 - 400 K/cumm [facility] MPV 10.0 9.1 - 12.3 fL [facility] RBC 2.71(L) 4.30 - 5.80 M/cumm [facility] MCV 84.9 81.3 - 96.4 fL [facility] MCH 26.2(L) 27.1 - 33.3 pg [facility] MCHC 30.9(L) 32.3 - 35.7 g/dL [facility] RDW CV 17.0(H) 11.1 - 14.9 % [facility] RDW SD 52.1(H) 35.7 - 48.1 fL [facility] NRBC abs 0.00 0.00 - 0.01 K/cumm [facility] Blood 05/08/2025 4:41 AM FLAMER SEALER 05/08/2025 5:07 AM FLAMER SEALER Dillan Fonseca MD LAB BLOOD ORDERABLES Final Result Performing Organization Address [facility] de Phone Number [address] [place] [address] * Phosphorus (05/08/2025 4:41 AM FLAMER SEALER) [facility] Phosphorus, pl 3.9 2.3 - 4.5 mg/dL Blood 05/08/2025 4:41 AM FLAMER SEALER 05/08/2025 5:07 AM FLAMER SEALER Dillan Fonseca MD LAB BLOOD ORDERABLES Final Result Performing Organization Address [facility] Co de Phone Number [address] [place] [address] * (ABNORMAL) Basic metabolic panel (05/08/2025 4:41 AM FLAMER SEALER) [facility] Sodium 137 135 - 145 mmol/L Potassium, pl 3.5 3.3 - 4.9 mmol/L [facility] Chloride 102 97 - 110 mmol/L [facility] CO2 26 22 - 32 mmol/L [facility] Anion gap 9 2 - 15 mmol/L [facility] BUN 30(H) 6 - 25 mg/dL [facility] Creatinine 0.77(L) 0.80 - 1.30 mg/dL [facility] Glucose 102 70 - 199 mg/dL [facility] Comment: Interpretive Data Fasting glucose >/= [...] 2022. Calcium 8.7 8.5 - 10.3 mg/dL [facility] Blood 05/08/2025 4:41 AM FLAMER SEALER 05/08/2025 5:07 AM FLAMER SEALER Dillan Fonseca MD LAB BLOOD ORDERABLES Final Result [facility] [address] [facility] Department [place] [address] * eGFR (05/07/2025 4:57 AM FLAMER SEALER) [facility] eGFR >90 >=60 mL/min/1. 73 [...] last reviewed 2021. Blood 05/07/2025 4:57 AM FLAMER SEALER 05/07/2025 5:09 AM FLAMER SEALER us Dillan Fonseca MD LAB BLOOD ORDERABLES Final Result [facility] [address] [facility] Department [place] [address] * (ABNORMAL) Differential, auto (05/07/2025 4:57 AM FLAMER SEALER) Neutrophil abs 6.32 1.50 - 6.50 K/cumm Imm gran abs 0.04 0.00 - 0.10 K/cumm [facility] Lymphocyte abs 0.95 0.80 - 3.30 K/cumm [facility] Monocyte abs 0.91(H) 0.20 - 0.80 K/cumm [facility] Eosinophil abs 0.33 0.00 - 0.50 K/cumm [facility] Basophil abs 0.03 0.00 - 0.10 K/cumm [facility] Neutrophil pct 73.7 % [facility] Comment: Interpretive Data Percent cell count reference ranges are not reported, since discordance with absolute values may lead to misinterpretation of CBC data. Current Interpretive Data was last revised on 2017. Imm gran pct 0.5 % [facility] Comment: Interpretive Data Percent cell count reference ranges are not reported, since discordance with absolute values may lead to misinterpretation of CBC data. Current Interpretive Data was last revised on 2017. Lymphocyte pct 11.1 % [facility] Comment: Interpretive Data Percent cell count reference ranges are not reported, since discordance with absolute values may lead to misinterpretation of CBC data. Current Interpretive Data was last revised on 2017. Monocyte pct 10.6 % [facility] Comment: Interpretive Data Percent cell count reference ranges are not reported, since discordance with absolute values may lead to misinterpretation of CBC data. Current Interpretive Data was last revised on 2017. Eosinophil pct 3.8 % [facility] Comment: Interpretive Data Percent cell count reference ranges are not reported, since discordance with absolute values may lead to misinterpretation of CBC data. Current Interpretive Data was last revised on 2017. Basophil pct 0.3 % [facility] Comment: Interpretive Data Percent cell count reference ranges are not reported, since discordance with absolute values may lead to misinterpretation of CBC data. Current Interpretive Data was last revised on 2017. Blood 05/07/2025 4:57 AM FLAMER SEALER 05/07/2025 5:09 AM FLAMER SEALER Dillan Fonseca MD LAB BLOOD ORDERABLES Final Result [facility] [address] [facility] Department [place] [address] * (ABNORMAL) CBC with auto differential (05/07/2025 4:57 AM FLAMER SEALER) WBC 8.58 3.80 - 9.90 K/cumm Hgb 8.0(L) 13.0 - 17.5 g/dL [facility] Hct 26.7(L) 38.9 - 50.3 % [facility] Plt 329 150 - 400 K/cumm [facility] MPV 9.8 9.1 - 12.3 fL [facility] RBC 3.11(L) 4.30 - 5.80 M/cumm [facility] MCV 85.9 81.3 - 96.4 fL [facility] MCH 25.7(L) 27.1 - 33.3 pg [facility] MCHC 30.0(L) 32.3 - 35.7 g/dL [facility] RDW CV 16.7(H) 11.1 - 14.9 % [facility] RDW SD 51.5(H) 35.7 - 48.1 fL [facility] NRBC abs 0.00 0.00 - 0.01 K/cumm [facility] Blood 05/07/2025 4:57 AM FLAMER SEALER 05/07/2025 5:09 AM FLAMER SEALER Dillan Fonseca MD LAB BLOOD ORDERABLES Final Result Performing Organization Address [facility] de Phone Number [address] [address] * Phosphorus (05/07/2025 4:57 AM FLAMER SEALER) [facility] Phosphorus, pl 3.5 2.3 - 4.5 mg/dL Blood 05/07/2025 4:57 AM FLAMER SEALER 05/07/2025 5:09 AM FLAMER SEALER Dillan Fonseca MD LAB BLOOD ORDERABLES Final Result Performing Organization Address [facility] de Phone Number [address] [address] * Magnesium (05/07/2025 4:57 AM FLAMER SEALER) [facility] Magnesium 2.2 1.4 - 2.5 mg/dL Blood 05/07/2025 4:57 AM FLAMER SEALER 05/07/2025 5:09 AM FLAMER SEALER Dillan Fonseca MD LAB BLOOD ORDERABLES Final Result Performing Organization Address [facility] de Phone Number [address] [address] * (ABNORMAL) Basic metabolic panel (05/07/2025 4:57 AM FLAMER SEALER) [facility] Sodium 135 135 - 145 mmol/L Potassium, pl 3.9 3.3 - 4.9 mmol/L [facility] Chloride 99 97 - 110 mmol/L [facility] CO2 27 22 - 32 mmol/L [facility] Anion gap 9 2 - 15 mmol/L [facility] BUN 26(H) 6 - 25 mg/dL [facility] Creatinine 0.75(L) 0.80 - 1.30 mg/dL [facility] Glucose 110 70 - 199 mg/dL [facility] Comment: Interpretive Data Fasting glucose >/= [...] 10.3 mg/dL [facility] Blood 05/07/2025 4:57 AM FLAMER SEALER 05/07/2025 5:09 AM FLAMER SEALER Dillan Fonseca MD LAB BLOOD ORDERABLES Final Result [facility] [address] [facility] Department [place] [address] * eGFR (05/06/2025 6:35 AM FLAMER SEALER) eGFR >90 >=60 mL/min/1. 73 m2 Comment: [...] last reviewed 2021. Blood 05/06/2025 6:35 AM FLAMER SEALER 05/06/2025 7:15 AM FLAMER SEALER Dillan Fonseca MD LAB BLOOD ORDERABLES Final Result [facility] [address] [facility] Department [place] [address] * (ABNORMAL) Differential, auto (05/06/2025 6:35 AM FLAMER SEALER) Pathologist [facility] Neutrophil abs 6.29 1.50 - 6.50 K/cumm Imm gran abs 0.01 0.00 - 0.10 K/cumm [facility] Lymphocyte abs 0.64(L) 0.80 - 3.30 K/cumm [facility] Monocyte abs 0.72 0.20 - 0.80 K/cumm [facility] Eosinophil abs 0.26 0.00 - 0.50 K/cumm [facility] Basophil abs 0.02 0.00 - 0.10 K/cumm [facility] Neutrophil pct 79.1 % [facility] Comment: Interpretive Data Percent cell count reference ranges are not reported, since discordance with absolute values may lead to misinterpretation of CBC data. Current Interpretive Data was last revised on 2017. Imm gran pct 0.1 % [facility] Comment: Interpretive Data Percent cell count reference ranges are not reported, since discordance with absolute values may lead to misinterpretation of CBC data. Current Interpretive Data was last revised on 2017. Lymphocyte pct 8.1 % [facility] Comment: Interpretive Data Percent cell count reference ranges are not reported, since discordance with absolute values may lead to misinterpretation of CBC data. Current Interpretive Data was last revised on 2017. Monocyte pct 9.1 % [facility] Comment: Interpretive Data Percent cell count reference ranges are not reported, since discordance with absolute values may lead to misinterpretation of CBC data. Current Interpretive Data was last revised on 2017. Eosinophil pct 3.3 % [facility] Comment: Interpretive Data Percent cell count reference ranges are not reported, since discordance with absolute values may lead to misinterpretation of CBC data. Current Interpretive Data was last revised on 2017. Basophil pct 0.3 % [facility] Comment: Interpretive Data Percent cell count reference ranges are not reported, since discordance with absolute values may lead to misinterpretation of CBC data. Current Interpretive Data was last revised on 2017. Blood 05/06/2025 6:35 AM FLAMER SEALER 05/06/2025 7:15 AM FLAMER SEALER Dillan Fonseca MD LAB BLOOD ORDERABLES Final Result Performing Organization Address City/[facility]/ZIP Co de Phone Number [place] [phone] [facility] [place] [address] * (ABNORMAL) CBC with auto differential (05/06/2025 6:35 AM FLAMER SEALER) WBC 7.94 3.80 - 9.90 K/cumm Hgb 7.8(L) 13.0 - 17.5 g/dL [facility] Hct 25.9(L) 38.9 - 50.3 % [facility] Plt 316 150 - 400 K/cumm [facility] MPV 9.9 9.1 - 12.3 fL [facility] RBC 3.03(L) 4.30 - 5.80 M/cumm [facility] MCV 85.5 81.3 - 96.4 fL [facility] MCH 25.7(L) 27.1 - 33.3 pg [facility] MCHC 30.1(L) 32.3 - 35.7 g/dL [facility] RDW CV 16.5(H) 11.1 - 14.9 % [facility] RDW SD 50.5(H) 35.7 - 48.1 fL [facility] NRBC abs 0.00 0.00 - 0.01 K/cumm [facility] Blood 05/06/2025 6:35 AM FLAMER SEALER 05/06/2025 7:15 AM FLAMER SEALER Dillan Fonseca MD LAB BLOOD ORDERABLES Final Result Performing Organization Address City/[facility]/ZIP Co de Phone Number [facility] [address] [place] [address] * Phosphorus (05/06/2025 6:35 AM FLAMER SEALER) [facility] Phosphorus, pl 3.7 2.3 - 4.5 mg/dL Blood 05/06/2025 6:35 AM FLAMER SEALER 05/06/2025 7:15 AM FLAMER SEALER Dillan Fonseca MD LAB BLOOD ORDERABLES Final Result Performing Organization Address [facility] Co de Phone Number [address] [address] * Magnesium (05/06/2025 6:35 AM FLAMER SEALER) [facility] Magnesium 2.1 1.4 - 2.5 mg/dL Blood 05/06/2025 6:35 AM FLAMER SEALER 05/06/2025 7:15 AM FLAMER SEALER Dillan Fonseca MD LAB BLOOD ORDERABLES Final Result Performing Organization Address [facility] de Phone Number [address] [address] * (ABNORMAL) Basic metabolic panel (05/06/2025 6:35 AM FLAMER SEALER) [facility] Sodium 139 135 - 145 mmol/L Potassium, pl 4.0 3.3 - 4.9 mmol/L [facility] Chloride 103 97 - 110 mmol/L [facility] CO2 29 22 - 32 mmol/L [facility] Anion gap 7 2 - 15 mmol/L [facility] BUN 18 6 - 25 mg/dL [facility] Creatinine 0.77(L) 0.80 - 1.30 mg/dL [facility] Glucose 113 70 - 199 mg/dL [facility] Comment: Interpretive Data Fasting glucose >/= [...] 10.3 mg/dL [facility] Blood 05/06/2025 6:35 AM FLAMER SEALER 05/06/2025 7:15 AM FLAMER SEALER us Dillan Fonseca MD LAB BLOOD ORDERABLES Final Result Performing Organization Address [facility] Co de Phone Number [address] [place] [address] * eGFR (05/05/2025 5:20 AM CDT) eGFR [...] ORDERABLES Final R esult Performing Organization Address City/[facility]/ZIP Co de Phone Number [address] Department [place] [address] * (ABNORMAL) Differential, auto (05/05/2025 5:20 AM CDT) Neutrophil abs 6.57(H) 1.50 - 6.50 K/cumm Imm gran abs 0.02 0.00 - 0.10 K/cumm [facility] Lymphocyte abs 0.52(L) 0.80 - 3.30 K/cumm [facility] Monocyte abs 0.73 0.20 - 0.80 K/cumm [facility] Eosinophil abs 0.27 0.00 - 0.50 K/cumm [facility] Basophil abs 0.02 0.00 - 0.10 K/cumm [facility] Neutrophil pct 80.9 % [facility] Comment: Interpretive Data Percent cell count reference ranges are not reported, since discordance with absolute values may lead to misinterpretation of CBC data. Current Interpretive Data was last revised on 2017. Imm gran pct 0.2 % [facility] Comment: Interpretive Data Percent cell count reference ranges are not reported, since discordance with absolute values may lead to misinterpretation of CBC data. Current Interpretive Data was last revised on 2017. Lymphocyte pct 6.4 % [facility] Comment: Interpretive Data Percent cell count reference ranges are not reported, since discordance with absolute values may lead to misinterpretation of CBC data. Current Interpretive Data was last revised on 2017. Monocyte pct 9.0 % [facility] Comment: Interpretive Data Percent cell count reference ranges are not reported, since discordance with absolute values may lead to misinterpretation of CBC data. Current Interpretive Data was last revised on 2017. Eosinophil pct 3.3 % [facility] Comment: Interpretive Data Percent cell count reference ranges are not reported, since discordance with absolute values may lead to misinterpretation of CBC data. Current Interpretive Data was last revised on 2017. Basophil pct 0.2 % [facility] Comment: Interpretive Data Percent cell count reference ranges are not reported, since discordance with absolute values may lead to misinterpretation of CBC data. Current Interpretive Data was last revised on 2017. Blood 05/05/2025 5:20 AM CDT 05/05/2025 5:24 AM CDT us Derick Madsen MD LAB BLOOD ORDERABLES Final R esult Performing Organization Address City/[facility] Co de Phone Number [facility] [address] [place] [address] * (ABNORMAL) CBC with auto differential (05/05/2025 5:20 AM CDT) [facility] WBC 8.13 3.80 - 9.90 K/cumm Hgb 7.4(L) 13.0 - 17.5 g/dL [facility] Hct 24.4(L) 38.9 - 50.3 % [facility] Plt 271 150 - 400 K/cumm [facility] MPV 9.6 9.1 - 12.3 fL [facility] RBC 2.86(L) 4.30 - 5.80 M/cumm [facility] MCV 85.3 81.3 - 96.4 fL [facility] MCH 25.9(L) 27.1 - 33.3 pg [facility] MCHC 30.3(L) 32.3 - 35.7 g/dL [facility] RDW CV 16.2(H) 11.1 - 14.9 % [facility] RDW SD 50.7(H) 35.7 - 48.1 fL [facility] NRBC abs 0.00 0.00 - 0.01 K/cumm [facility] Blood 05/05/2025 5:20 AM CDT 05/05/2025 5:24 AM CDT us Derick Madsen MD LAB BLOOD ORDERABLES Final R esult [facility] [address] [place] [address] * (ABNORMAL) Erythrocyte sedimentation rate (05/05/2025 5:20 AM CDT) Erythrocyte sedimentation rate 38(H) 1 - 20 mm/hr Blood 05/05/2025 5:20 AM CDT 05/05/2025 5:24 AM CDT us Derick Madsen MD LAB BLOOD ORDERABLES Final R esult Performing Organization Address City/[facility]/ZIP Co de Phone Number [address] [place] [address] * (ABNORMAL) Creatine kinase (CK), total (05/05/2025 5:20 AM CDT) [facility] CK 28(L) 40 - 300 Units/L Blood 05/05/2025 5:20 AM CDT 05/05/2025 5:24 AM CDT us Erik Munoz MD LAB BLOOD ORDER DIANA Final Result Performing Organization Address [facility] Co de Phone Number [address] [address] * (ABNORMAL) Comprehensive metabolic panel (05/05/2025 5:20 AM CDT) [facility] Sodium 138 135 - 145 mmol/L Potassium, pl 3.7 3.3 - 4.9 mmol/L [facility] Chloride 103 97 - 110 mmol/L [facility] CO2 28 22 - 32 mmol/L [facility] Anion gap 7 2 - 15 mmol/L [facility] BUN 19 6 - 25 mg/dL [facility] Creatinine 0.69(L) 0.80 - 1.30 mg/dL [facility] Glucose 116 70 - 199 mg/dL [facility] Comment: Interpretive Data Fasting glucose >/= [...] 2022. Calcium 8.2(L) 8.5 - 10.3 mg/dL [facility] Bilirubin, total 0.3 0.1 - 1.2 mg/dL [facility] Protein, pl 5.8(L) 6.5 - 8.5 g/dL [facility] Albumin 2.8(L) 3.5 - 5.0 g/dL [facility] Alk phos 83 40 - 130 Units/L [facility] ALT 10 7 - 55 Units/L [facility] AST 16 10 - 50 Units/L [facility] Blood 05/05/2025 5:20 AM CDT 05/05/2025 5:24 AM CDT us Derick Madsen MD LAB BLOOD ORDERABLES Final R esult [facility] [address] [facility] Department [place] [address] * (ABNORMAL) CBC without differential (05/04/2025 9:57 AM CDT) WBC 8.04 3.80 - 9.90 K/cumm Hgb 7.8(L) 13.0 - 17.5 g/dL [facility] Hct 26.7(L) 38.9 - 50.3 % [facility] Plt 325 150 - 400 K/cumm [facility] MPV 9.8 9.1 - 12.3 fL [facility] RBC 3.11(L) 4.30 - 5.80 M/cumm [facility] MCV 85.9 81.3 - 96.4 fL [facility] MCH 25.1(L) 27.1 - 33.3 pg [facility] MCHC 29.2(L) 32.3 - 35.7 g/dL [facility] RDW CV 16.6(H) 11.1 - 14.9 % [facility] RDW SD 51.3(H) 35.7 - 48.1 fL [facility] NRBC abs 0.00 0.00 - 0.01 K/cumm [facility] Blood 05/04/2025 9:57 AM CDT 05/04/2025 10:01 AM CDT Dillan Fonseca MD LAB BLOOD ORDERABLES Final Result Performing Organization Address [facility] de Phone Number [facility] [address] [place] [address] * eGFR (05/04/2025 2:55 AM CDT) eGFR [...] ORDER DIANA Final Result Performing Organization Address [facility] Co de Phone Number [address]ANKIE[address] [place] [address] * (ABNORMAL) CBC without differential (05/04/2025 2:55 AM CDT) [facility] WBC 7.73 3.80 - 9.90 K/cumm Hgb 6.7(L) 13.0 - 17.5 g/dL [facility] Hct 22.5(L) 38.9 - 50.3 % [facility] Plt 241 150 - 400 K/cumm [facility] MPV 9.8 9.1 - 12.3 fL [facility] RBC 2.62(L) 4.30 - 5.80 M/cumm [facility] MCV 85.9 81.3 - 96.4 fL [facility] MCH 25.6(L) 27.1 - 33.3 pg [facility] MCHC 29.8(L) 32.3 - 35.7 g/dL [facility] RDW CV 16.5(H) 11.1 - 14.9 % [facility] RDW SD 51.2(H) 35.7 - 48.1 fL [facility] NRBC abs 0.00 0.00 - 0.01 K/cumm [facility] Blood 05/04/2025 2:55 AM CDT 05/04/2025 3:06 AM CDT Erik Munoz MD LAB BLOOD ORDER DIANA Final Result [facility] [address] [facility] Department [place] [address] * (ABNORMAL) Basic metabolic panel (05/04/2025 2:55 AM CDT) Sodium 138 135 - 145 mmol/L Potassium, pl 3.6 3.3 - 4.9 mmol/L [facility] Chloride 103 97 - 110 mmol/L [facility] CO2 25 22 - 32 mmol/L [facility] Anion gap 10 2 - 15 mmol/L [facility] BUN 23 6 - 25 mg/dL [facility] Creatinine 0.86 0.80 - 1.30 mg/dL [facility] Glucose 106 70 - 199 mg/dL [facility] Comment: Interpretive Data Fasting glucose >/= [...] BLOOD ORDER DIANA Final Result [facility] [address] [facility] Department [place] [address] * CT Abdomen Pelvis W Contrast (05/03/2025 [...] Report: No growth Comment:Testing performed by : [facility], [address] [facility], [place]., [address] Blood (Peripheral) 05/03/2025 3:00 PM CDT 05/03/2025 6:48 PM CDT Harris YU - 05/08/2025 7:00 AM FLAMER SEALER From a different site than #1. Draw [...] performance characteristics have been verified by the [facility]. For questions about this culture, contact the Microbiology Laboratory at [phone]. Interpretive data was last revised on 24. Mary Ellen LAZAR LAB MICROBIOLOGY - GENERAL ORDERABLES Final Result Performing Organization Address City/[facility]/ZIP Co de Phone Number [facility] [place] [address] * Sepsis Lactate w/ Reflex (05/03/2025 2:41 PM CDT) [facility] Sepsis Lactate 1.2 0.7 - 2.0 mmol/L Blood 05/03/2025 2:41 PM CDT 05/03/2025 2:46 PM CDT Joseph LAZAR LAB BLOOD ORDERABLES Final R esult [facility] [employer] [place], [place] [id number] * eGFR (05/03/2025 2:41 PM CDT) [facility] eGFR 89 >=60 mL/min/1. 73 m2 Comment: [...] LAZAR LAB BLOOD ORDERABLES Final R esult [facility] [address] [facility] Department [place] [address] * (ABNORMAL) Differential, auto (05/03/2025 2:41 PM CDT) Neutrophil abs 8.41(H) 1.50 - 6.50 K/cumm Imm gran abs 0.03 0.00 - 0.10 K/cumm [facility] Lymphocyte abs 0.73(L) 0.80 - 3.30 K/cumm [facility] Monocyte abs 1.18(H) 0.20 - 0.80 K/cumm [facility] Eosinophil abs 0.23 0.00 - 0.50 K/cumm [facility] Basophil abs 0.02 0.00 - 0.10 K/cumm [facility] Neutrophil pct 79.3 % [facility] Comment: Interpretive Data Percent cell count reference ranges are not reported, since discordance with absolute values may lead to misinterpretation of CBC data. Current Interpretive Data was last revised on 2017. Imm gran pct 0.3 % [facility] Comment: Interpretive Data Percent cell count reference ranges are not reported, since discordance with absolute values may lead to misinterpretation of CBC data. Current Interpretive Data was last revised on 2017. Lymphocyte pct 6.9 % [facility] Comment: Interpretive Data Percent cell count reference ranges are not reported, since discordance with absolute values may lead to misinterpretation of CBC data. Current Interpretive Data was last revised on 2017. Monocyte pct 11.1 % [facility] Comment: Interpretive Data Percent cell count reference ranges are not reported, since discordance with absolute values may lead to misinterpretation of CBC data. Current Interpretive Data was last revised on 2017. Eosinophil pct 2.2 % [facility] Comment: Interpretive Data Percent cell count reference ranges are not reported, since discordance with absolute values may lead to misinterpretation of CBC data. Current Interpretive Data was last revised on 2017. Basophil pct 0.2 % [facility] Comment: Interpretive Data Percent cell count reference ranges are not reported, since discordance with absolute values may lead to misinterpretation of CBC data. Current Interpretive Data was last revised on 2017. Blood 05/03/2025 2:41 PM CDT 05/03/2025 2:46 PM CDT us Joseph LAZAR LAB BLOOD ORDERABLES Final R esult [facility] [address] [facility] Department [place] [address] * (ABNORMAL) CBC with auto differential (05/03/2025 2:41 PM CDT) WBC 10.60(H) 3.80 - 9.90 K/cumm Hgb 7.8(L) 13.0 - 17.5 g/dL [facility] Hct 25.9(L) 38.9 - 50.3 % [facility] Plt 309 150 - 400 K/cumm [facility] MPV 9.9 9.1 - 12.3 fL [facility] RBC 2.98(L) 4.30 - 5.80 M/cumm [facility] MCV 86.9 81.3 - 96.4 fL [facility] MCH 26.2(L) 27.1 - 33.3 pg [facility] MCHC 30.1(L) 32.3 - 35.7 g/dL [facility] RDW CV 16.7(H) 11.1 - 14.9 % [facility] RDW SD 51.7(H) 35.7 - 48.1 fL [facility] NRBC abs 0.00 0.00 - 0.01 K/cumm [facility] Blood 05/03/2025 2:41 PM CDT 05/03/2025 2:46 PM CDT us Joseph LAZAR LAB BLOOD ORDERABLES Final R esult [facility] [address] [facility] Department [place] [address] * Blood culture Blood Peripheral (05/03/2025 2:41 PM CDT) Report Final Report: No growth Comment:Testing performed by : [facility], [address] [facility] [place]., [address] Blood (Peripheral) 05/03/2025 2:41 PM CDT 05/03/2025 6:48 PM CDT Narrative [facility] - 05/08/2025 7:00 AM FLAMER SEALER Draw Blood cultures before administration of Antibiotics [...] performance characteristics have been verified by the [facility]. For questions about this culture, contact the Microbiology Laboratory at [phone]. Interpretive data was last revised on 24. Mary Ellen LAZAR LAB MICROBIOLOGY - GENERAL ORDERABLES Final Result Performing Organization Address [facility] Co de Phone Number [address] [place] [address] * (ABNORMAL) Erythrocyte sedimentation rate (05/03/2025 2:41 PM CDT) Pathologist [facility] Erythrocyte sedimentation rate 48(H) 1 - 20 mm/hr Blood 05/03/2025 2:41 PM CDT 05/03/2025 2:46 PM CDT Joseph LAZAR LAB BLOOD ORDERABLES Final R esult Performing Organization Address [facility] Co de Phone Number [address] [address] * (ABNORMAL) CRP (acute phase) (05/03/2025 2:41 PM CDT) Pathologist [facility] CRP 126.0(H) <=10.0 mg/L Blood 05/03/2025 2:41 PM CDT 05/03/2025 2:46 PM CDT Mary Ellen LAZAR LAB BLOOD ORDERABLES Final Result Performing Organization Address [facility] Co de Phone Number [address] [address] * (ABNORMAL) Creatine kinase (CK), total (05/03/2025 2:41 PM CDT) Pathologist [facility] CK 26(L) 40 - 300 Units/L Blood 05/03/2025 2:41 PM CDT 05/03/2025 2:46 PM CDT Mary Ellen LAZAR LAB BLOOD ORDERABLES Final Result [facility] [address] [facility] Department [place] [address] * (ABNORMAL) Comprehensive metabolic panel (05/03/2025 2:41 PM CDT) Pathologist [facility] Sodium 138 135 - 145 mmol/L Potassium, pl 4.3 3.3 - 4.9 mmol/L [facility] Chloride 101 97 - 110 mmol/L [facility] CO2 27 22 - 32 mmol/L [facility] Anion gap 10 2 - 15 mmol/L [facility] BUN 26(H) 6 - 25 mg/dL [facility] Creatinine 0.88 0.80 - 1.30 mg/dL [facility] Glucose 125 70 - 199 mg/dL [facility] Comment: Interpretive Data Fasting glucose >/= [...] 2022. Calcium 8.5 8.5 - 10.3 mg/dL [facility] Bilirubin, total 0.5 0.1 - 1.2 mg/dL [facility] Protein, pl 6.4(L) 6.5 - 8.5 g/dL [facility] Albumin 3.2(L) 3.5 - 5.0 g/dL [facility] Alk phos 95 40 - 130 Units/L [facility] ALT 10 7 - 55 Units/L [facility] AST 19 10 - 50 Units/L [facility] Blood 05/03/2025 2:41 PM CDT 05/03/2025 2:46 PM CDT Joseph LAZAR LAB BLOOD ORDERABLES Final R esult [facility] [address] [facility] Department [place] [address] * CT Abdomen Pelvis W Contrast (03/14/2025 [...] Lai Costa M.D. AR: SANTY Report ID: [id number] Reading Location: [id number] Narrative 03/14/2025 8:31 PM CDT EXAM DESCRIPTION: [...] Lai Costa M.D. AR: SANTY Report ID: [id number] Reading Location: [id number] Procedure Note Lai Costa MD - 03/14/2025 [...] Lai Costa M.D. AR: SANTY Report ID: [id number] Reading Location: [place] [address] PROCEDURES Edited Result [...] BLOOD ORDERABLES Final Resu lt [facility] ([place]) [address] [facility] Department [place] [address] * (ABNORMAL) Differential, auto (03/14/2025 6:17 PM [...] LAB BLOOD ORDERABLES Final Resu lt [facility] ([place]) [address] [facility] Department of Laboratories [place] [id number] * (ABNORMAL) Urinalysis reflex to microscopic and culture Urine, indwelling catheter (03/14/2025 6:17PM CDT) Color, ur Yellow Yellow Clarity, ur Turbid(A) Clear [facility] A ([place]) Specific gravity, ur 1.016 1.003 - 1.030 [facility] ([place]) pH, urine 5.5 [facility] ([place]) Comment: Interpretive Data U rine pH is affected by diet, medications, systemic acid-base disturbances, and renal tubular function. pH may affect urinary stone formation. For example, urine pH below 6.0 may help reduce the tendency for calcium phosphate stones and pH greater than 6.0 may reduce the tendency for uric acid stone formation. Source: [facility] [employer] Current Interpretive Data was last revised on [...] MICROBIOLOGY - GENERAL ANTONIO WALKER Final Result [facility] ([place] [address] [facility] Department [place] [address] * (ABNORMAL) CBC with auto differential (03/14/2025 [...] abs 0.00 0.00 - 0.01 K/cumm [facility] ([place]) Blood 03/14/2025 6:17 PM CDT 03/14/2025 6:21 PM CDT Jess LAZAR LAB BLOOD ORDERABLES Final Resu lt Performing Organization Address City/[facility] Co de Phone Number [facility]I [facility] ([place]) [address] [facility] [employer] [place] [place] [address] * (ABNORMAL) Urinalysis, microscopic only (03/14/2025 6:17 [...] ORDERABLES Final Resu lt Performing Organization Address City/[facility] Co de Phone Number FRANKIEPRUDENCIO [facility] ([place]) 1 [facility] [place] [address] * (ABNORMAL) Urine culture Urine, indwelling catheter (03/14/2025 6:17 PM CDT) Report Final Report: Greater than or equal to 100,000 colonies/mL of Staphylococcus aureus Methicillin resistant (MRSA) by penicillin binding protein 2a (PBP2a) testing. Plus growth of clinically insignificant bacterial sandra. (.) Comment:Testing performed by : [facility], 1 [facility] [place]., [address] Organism STAPHYLOCOCCUS AUREUS [facility] ([place]) Organism PLUS GROWTH OF CLINICALLY INSIGNIFICANT SANDRA. [facility] ([place]) Urine, indwelling catheter 03/14/2025 6:17 PM CDT 03/14/2025 9:57 PM CDT Narrative [facility] ([place]) - 03/17/2025 2:55 PM CDT Urine culture reflexed based upon urinalysis results. Testing performed by [facility] ([phone]) Organism Antibiotic Method Susceptibility Staphylococcus aureus Vancomycin INTERPRETATION Susceptible Staphylococcus aureus Ceftaroline INTERPRETATION Susceptible Staphylococcus aureus Trimethoprim with Sulfamethoxazole INTERPRETATION Susceptible Staphylococcus aureus Linezolid INTERPRETATION Susceptible Staphylococcus aureus Doxycycline INTERPRETATION Susceptible Staphylococcus aureus Nitrofurantoin INTERPRETATION Susceptible Staphylococcus aureus Oxacillin INTERPRETATION Resistant Staphylococcus aureus Cefazolin INTERPRETATION Resistant Staphylococcus aureus Ceftriaxone INTERPRETATION Resistant Jess LAZAR LAB MICROBIOLOGY - GENERAL ANTONIO WALKER Final Result [facility] ([place]) [address] [facility] Department [place] [address] * (ABNORMAL) Comprehensive metabolic panel (03/14/2025 6:17 PM CDT) Sodium 136 135 - 145 mmol/L [facility] ([place]) Potassium, pl 3.5 3.3 - 4.9 mmol/L [facility] ([place] Chloride 97 97 - 110 mmol/L [facility] ([place]) CO2 29 22 - 32 mmol/L [facility] ([place]) Anion gap 10 2 - 15 mmol/L [facility] ([place] BUN 20 6 - 25 mg/dL [facility] ([place]) Creatinine 0.67(L) 0.80 - 1.30 mg/dL [facility] ([place]) Glucose 134 70 - 199 mg/dL [facility] ([place]) Comment: Interpretive Data Fasting [...] Final Resu lt [facility] ([place]) [address] [facility] Department [place] [address] * Antibody identification (03/05/2025 12:31 AM CDT) Pathologist [facility] Antibody ID 1 Anti Little e Blood 03/05/2025 12:3 1 AM CDT 03/05/2025 12:32 AM CDT Marilyn Morgan MD LAB BLOOD BANK TEST ORDERABLES F inal Result [facility] Department [place] [address] * eGFR (03/04/2025 11:12 PM CDT) eGFR [...] NP LAB BLOOD ORDERABLES Fin al Result [facility] One [facility] Department [place] [address] * (ABNORMAL) CBC without differential (03/04/2025 11:12 PM CDT) WBC 11.79(H) 3.80 - 9.90 K/cumm Hgb 9.1(L) 13.0 - 17.5 g/dL [facility] Hct 29.9(L) 38.9 - 50.3 % [facility] Plt 267 150 - 400 K/cumm [facility] MPV 10.2 9.1 - 12.3 fL [facility] RBC 3.30(L) 4.30 - 5.80 M/cumm [facility] MCV 90.6 81.3 - 96.4 fL [facility] MCH 27.6 27.1 - 33.3 pg [facility] MCHC 30.4(L) 32.3 - 35.7 g/dL [facility] RDW CV 15.9(H) 11.1 - 14.9 % [facility] RDW SD 51.3(H) 35.7 - 48.1 fL [facility] NRBC abs 0.00 0.00 - 0.01 K/cumm [facility] Blood 03/04/2025 11:1 2 PM CDT 03/04/2025 11:33 PM CDT Lucy Ho BOILER REPAIR SUPERVISOR LAB BLOOD ORDERABLES Fin al Result Performing Organization Address [facility] de Phone Number [facility] [place] [employer] [place] [address] * (ABNORMAL) Type and screen (03/04/2025 11:12 PM CDT) [facility] ABO Rh O Positive Bonifacio, indirect Positive(A) [facility] Blood 03/04/2025 11:1 2 PM CDT 03/04/2025 11:23 PM CDT Narrative [facility] - 03/05/2025 12:32 AM CDT Has the patient had Daratumumab or Isatuximab in the past 6 months?->Unknown Marilyn Morgan MD LAB BLOOD BANK TEST ORDERABLES F inal Result Performing Organization Address [facility] de Phone Number [facility] [place] [address] * (ABNORMAL) Basic metabolic panel (03/04/2025 11:12 PM CDT) [facility] Sodium 142 135 - 145 mmol/L Potassium, pl 4.2 3.3 - 4.9 mmol/L [facility] Chloride 100 97 - 110 mmol/L [facility] CO2 35(H) 22 - 32 mmol/L [facility] Anion gap 7 2 - 15 mmol/L [facility] BUN 12 6 - 25 mg/dL [facility] Creatinine 0.81 0.80 - 1.30 mg/dL [facility] Glucose 105 70 - 199 mg/dL [facility] Comment: Interpretive Data Fasting glucose >/= 126 [...] LAB BLOOD ORDERABLES Fin al Result [facility] One [facility] Department [place] [address] * eGFR (03/03/2025 10:44 PM CDT) eGFR [...] CDT 03/03/2025 11:34 PM CDT Lucy Ho BOILER REPAIR SUPERVISOR LAB BLOOD ORDERABLES Fin al Result Performing Organization Address [facility] Co de Phone Number [facility] [place] [address] * (ABNORMAL) CBC without differential (03/03/2025 10:44 PM CDT) WBC 9.58 3.80 - 9.90 K/cumm Hgb 8.3(L) 13.0 - 17.5 g/dL [facility] Hct 26.4(L) 38.9 - 50.3 % [facility] Plt 263 150 - 400 K/cumm [facility] MPV 10.4 9.1 - 12.3 fL [facility] RBC 2.97(L) 4.30 - 5.80 M/cumm [facility] MCV 88.9 81.3 - 96.4 fL [facility] MCH 27.9 27.1 - 33.3 pg [facility] MCHC 31.4(L) 32.3 - 35.7 g/dL [facility] RDW CV 15.5(H) 11.1 - 14.9 % [facility] RDW SD 49.8(H) 35.7 - 48.1 fL [facility] NRBC abs 0.00 0.00 - 0.01 K/cumm [facility] Blood 03/03/2025 10:4 4 PM CDT 03/03/2025 11:34 PM CDT Lucy Ho BOILER REPAIR SUPERVISOR LAB BLOOD ORDERABLES Fin al Result [facility] One [facility] [place] [address] * Phosphorus (03/03/2025 10:44 PM CDT) Pathologist [facility] Phosphorus, pl 3.5 2.3 - 4.5 mg/dL Blood 03/03/2025 10:4 4 PM CDT 03/03/2025 11:33 PM CDT Lucy Ho BOILER REPAIR SUPERVISOR LAB BLOOD ORDERABLES Fin al Result [facility] Department [place] [address] * Magnesium (03/03/2025 10:44 PM CDT) Pathologist [facility] Magnesium 2.3 1.4 - 2.5 mg/dL Blood 03/03/2025 10:4 4 PM CDT 03/03/2025 11:33 PM CDT Lucy Ho BOILER REPAIR SUPERVISOR LAB BLOOD ORDERABLES Fin al Result Performing Organization Address [facility] Co de Phone Number [facility] [place] [address] * (ABNORMAL) Basic metabolic panel (03/03/2025 10:44 PM CDT) [facility] Sodium 142 135 - 145 mmol/L Potassium, pl 4.3 3.3 - 4.9 mmol/L [facility] Chloride 101 97 - 110 mmol/L [facility] CO2 35(H) 22 - 32 mmol/L [facility] Anion gap 6 2 - 15 mmol/L [facility] BUN 10 6 - 25 mg/dL [facility] Creatinine 0.77(L) 0.80 - 1.30 mg/dL [facility] Glucose 99 70 - 199 mg/dL [facility] Comment: Interpretive Data Fasting glucose >/= 126 [...] 2022. Calcium 8.6 8.5 - 10.3 mg/dL [facility] Blood 03/03/2025 10:4 4 PM CDT 03/03/2025 11:34 PM CDT Lucy Ho NP LAB BLOOD ORDERABLES Fin al Result Performing Organization Address [facility] Co de Phone Number [facility] [place] [address] * eGFR (03/02/2025 11:52 PM CDT) eGFR [...] ORDERABLES Fin al Result Performing Organization Address [facility] Co de Phone Number [facility] Department [place] [address] * (ABNORMAL) CBC without differential (03/02/2025 11:52 PM CDT) WBC 11.35(H) 3.80 - 9.90 K/cumm Hgb 8.1(L) 13.0 - 17.5 g/dL [facility] Hct 26.9(L) 38.9 - 50.3 % [facility] Plt 230 150 - 400 K/cumm [facility] MPV 10.4 9.1 - 12.3 fL [facility] RBC 2.90(L) 4.30 - 5.80 M/cumm [facility] MCV 92.8 81.3 - 96.4 fL [facility] MCH 27.9 27.1 - 33.3 pg [facility] MCHC 30.1(L) 32.3 - 35.7 g/dL [facility] RDW CV 15.5(H) 11.1 - 14.9 % [facility] RDW SD 52.4(H) 35.7 - 48.1 fL [facility] NRBC abs 0.00 0.00 - 0.01 K/cumm [facility] Blood 03/02/2025 11:5 2 PM CDT 03/03/2025 12:07 AM CDT us Lucy Ho BOILER REPAIR SUPERVISOR LAB BLOOD ORDERABLES Fin al Result [facility] One [facility] Department [place] [address] * (ABNORMAL) CBC without differential (03/02/2025 11:52 PM CDT) Pathologist [facility] WBC 11.11(H) 3.80 - 9.90 K/cumm Hgb 8.0(L) 13.0 - 17.5 g/dL [facility] Hct 26.9(L) 38.9 - 50.3 % [facility] Plt 233 150 - 400 K/cumm [facility] MPV 10.4 9.1 - 12.3 fL [facility] RBC 2.91(L) 4.30 - 5.80 M/cumm [facility] MCV 92.4 81.3 - 96.4 fL [facility] MCH 27.5 27.1 - 33.3 pg [facility] MCHC 29.7(L) 32.3 - 35.7 g/dL [facility] RDW CV 15.5(H) 11.1 - 14.9 % [facility] RDW SD 51.9(H) 35.7 - 48.1 fL [facility] NRBC abs 0.00 0.00 - 0.01 K/cumm [facility] Blood 03/02/2025 11:5 2 PM CDT 03/03/2025 12:08 AM CDT Lucy Ho BOILER REPAIR SUPERVISOR LAB BLOOD ORDERABLES Fin al Result Performing Organization Address City/[facility] Co de Phone Number [facility] [place] [place] [address] * Phosphorus (03/02/2025 11:52 PM CDT) Phosphorus, pl 3.3 2.3 - 4.5 mg/dL Blood 03/02/2025 11:5 2 PM CDT 03/03/2025 12:08 AM CDT Lucy Ho NP LAB BLOOD ORDERABLES Fin al Result Performing Organization Address [facility] de Phone Number [facility] [place] [place] [address] * Magnesium (03/02/2025 11:52 PM CDT) Magnesium 2.2 1.4 - 2.5 mg/dL Blood 03/02/2025 11:5 2 PM CDT 03/03/2025 12:08 AM CDT Lucy Ho NP LAB BLOOD ORDERABLES Fin al Result Performing Organization Address [facility] Co de Phone Number [facility] Department [place] [address] * (ABNORMAL) Basic metabolic panel (03/02/2025 11:52 PM CDT) Sodium 142 135 - 145 mmol/L Potassium, pl 4.2 3.3 - 4.9 mmol/L [facility] Chloride 101 97 - 110 mmol/L [facility] CO2 36(H) 22 - 32 mmol/L [facility] Anion gap 5 2 - 15 mmol/L [facility] BUN 11 6 - 25 mg/dL [facility] Creatinine 0.71(L) 0.80 - 1.30 mg/dL [facility] Glucose 101 70 - 199 mg/dL [facility] Comment: Interpretive Data Fasting glucose >/= 126 [...] 2022. Calcium 8.5 8.5 - 10.3 mg/dL [facility] Blood 03/02/2025 11:5 2 PM CDT 03/03/2025 12:08 AM CDT us Lucy Ho NP LAB BLOOD ORDERABLES [facility] al Result Performing Organization Address City/State/[facility] Co de Phone Number [facility] One [facility] Department [place] [address] * US Vein Duplex Lower Extremity Bilateral Complete (03/02/2025 4:55 PM CDT) Anatomical Region Laterality Modality Vascular Bilateral Ultrasound 03/02/2025 4:23 PM CDT Narrative 03/02/2025 6:14 PM CDT [employer] - Department of Vascular Surgery, Vascular Laboratory [address] [place] [id number] Lower Extremity Venous Ultrasound Report Patient Name: JEROME ASKEW : 1950 (74y 11m) Study Date: 03/02/2025 4:23:44 PM Gender: M Tech: Location: [id number] Ref Provider: LIZA TRAYLOR Quality: Adequate Order [...] INDICATIONS: Swelling lower extremity, bilateral. FINDINGS: Performing Site Head: Mariaelena Gill RVT. Bilateral: Venous Doppler signals [...] Electronically Signed By: Pritesh Contreras MD [facility] [phone] 03/02/2025 5:36:36 PM CDT Procedure Note Pritesh Contreras MD - 03/02/2025 [facility] - Department of Vascular Surgery,Vascular Laboratory [address] [place] [address] Lower Extremity Venous Ultrasound Report Patient Name: JEROME ASKEW : 1950 (74y 11m) Study Date: 03/02/2025 4:23:44 PM Gender: M Tech: Location: [id number] Ref Provider: LIZA TRAYLOR Quality: Adequate Order Provider: LIZA TRAYLOR PROCEDURES: Vascular Report: Venous Duplex imaging was performed bilaterally in the lower extremities.The common femoral, femoral, popliteal, posterior tibial, peroneal veins wereevaluated for patency, spontaneity and phasicity with Doppler, compression and augmentationmaneuvers. Great saphenous vein proximal at the junction was evaluated with compressionmaneuvers. INDICATIONS: Swelling lower extremity, bilateral. FINDINGS: Performing Site Head: Mariaelena Gill RVT. Bilateral: Venous Doppler signals [...] Electronically Signed By: Pritesh Contreras MD [facility] [phone] 03/02/2025 5:36:36 PM CDT Liza Traylor MD [facility] US PROCEDURES Final Result * (ABNORMAL) POC Blood Gas and Chemistries, Venous - (03/02/2025 1:56 PM CDT) pH, Cas POC 7.40 7.32 - 7.43 pCO2, cas POC 61(H) 40 - 50 mmHg [facility] pO2, cas POC 42 mmHg [facility] Na, POC 142 135 - 145 mmol/L [facility] K POC 4.2 3.3 - 4.9 mmol/L [facility] Comment: Interpretive Data Not all point of care methods assess for hemolysis. Confirm with instrument and retest K+ if not consistent with clinical signs and symptoms. Current Interpretive Data was last revised on 2023. Cl, POC 108 97 - 110 mmol/L [facility] Ionized Ca, POC 4.59 4.50 - 5.10 mg/dL [facility] Glucose, POC 100 70 - 199 mg/dL [facility] Lactate POC 1.0 0.7 - 2.0 mmol/L [facility] O2 Sat, Cas POC (Meliton) 71 % [facility] Base excess, POC 11.5 mmol/L [facility] HCO3, Cas POC 38(H) 20 - 30 mmol/L [facility] Hct, POC 24.0(L) 41.4 - 51.6 % [facility] Total Hb, POC 8.0(L) 13.8 - 17.2 g/dL [facility] Blood 03/02/2025 1:56 PM CDT 03/02/2025 1:56 PM CDT us Liza Traylor MD LAB POCT ORDERABLES - DE VICE Final Result [facility] One [facility] Department [place] [address] * (ABNORMAL) Tissue aerobic and anaerobic culture and gram stain Tissue Buttocks (03/02/2025 11:43 AMCDT) Direct Specimen Exam Stain: No polymorphonuclear leukocytes seen. Abundant Gram Variable Bacilli Abundant Gram Positive Cocci Report Final Report: Few Mixed aerobic and anaerobic microorganisms Includes the following: Few Bacteroides fragilis (.) [facility] Organism MIXED AEROBIC AND ANAEROBIC MICROORGANISMS [facility] Organism BACTEROIDES FRAGILIS [facility] Tissue (Buttocks) 03/02/2025 11:43 AM CDT 03/02/2025 2:05 PM CDT Narrative [facility] - 03/05/2025 1:23 PM CDT Deep tissue left buttocks wound Testing performed by [facility] ([phone]) Specimens submitted from normally sterile body sites [...] ENERAL ORDERABLES Final Result [facility] Department [place] [address] * Continuous Video EEG (03/02/2025 9:46 AM CDT) Anatomical Region Laterality Modality EEG Narrative 03/02/2025 10:16 AM CDT Video-EEG Report Patient Name: Jerome Askew [facility] Medical Record Number (MRN): [id number] [facility] Record: [id number] Date of (): 1950 Ordering Provider: Colin [...] digital EEG were recorded continuously with a FAZUA EEG acquisition system. This was a 32 [...] AM CDT Narrative 03/02/2025 9:18 AM CDT [facility] [place] [address] Transthoracic Echocardiographic Report Patient Name: JEROME ASKEW R : 1950 (74y 11m) Sex: M Study Date: 03/02/2025 07:44:43 AM Ht(Inch): 75 Wt(Lb): 179.01 BSA: 2.07 Site Head: Ale Alexander Location: [id number] Order Provider: MARILYN MORGAN Heart Rate: 73 [...] Procedure Note Cristóbal May MD - 03/02/2025 [facility] [place] [address] Transthoracic Echocardiographic Report Patient Name: JEROME ASKEW R : 1950 (74y 11m) Sex: M Study Date: 03/02/2025 07:44:43 AM Ht(Inch): 75 Wt(Lb): 179.01 BSA: 2.07 Site Head: Ale Alexander Location: [id number] Order Provider:MARILYN MORGAN Heart Rate: 73 BMI: [...] LA Length 4C 6.49 cm MV Decel Yfmc302.48 msec [ 104.00 - 258.00 ] LA [...] cm [ 1.71 - 5.00 ] RA Aesqpr16.63 ml RA Volume Index16.71 ml/m2 IVC Diam2.11 [...] Units (03/02/2025 8:19 AM CDT) Product code [id number] [facility] Unit Number [id number] [id number] [facility] Product Blood Type OPOS [facility] Dispense Status RETURNED [facility] Product code [id number] Unit Number [id number] 3-F [facility] Product Blood Type OPOS [facility] Dispense Status RETURNED [facility] Blood 03/02/2025 8:19 AM CDT 03/02/2025 8:19 AM CDT Narrative [facility] - 03/05/2025 12:08 AM CDT Are special requirements needed? (All products are leukoreduced and CMV- safe)- >No Date required:-[id number] LRRBC # of [id number] Reasons:-Intra-op transfusion} us Aman Fowler MD BLOOD BANK PRODUCT ORD ERABLES Final Result [facility] One [facility] [place] [address] * CT Head WO Contrast (03/02/2025 4:11 [...] history of spinal cord injury and left SPRING COILER HAND now status post code stroke with TNK [...] history of spinal cord injury and left SPRING COILER HAND now status post code stroke with TNK [...] signed by: Michael Tam M.D. Joyce Wright BOILER REPAIR SUPERVISOR IMG CT PROCEDURES Fin al Result * Antibody identification (03/01/2025 9:23 PM CDT) Antibody ID 1 Anti Little e Blood 03/01/2025 9:23 PM CDT 03/01/2025 9:23 PM CDT Marilyn Morgan MD LAB BLOOD BANK TEST ORDERABLES F inal Result [facility] One [facility] Department [place] [address] * eGFR (03/01/2025 8:02 PM CDT) eGFR [...] CDT 03/01/2025 8:27 PM CDT Lucy Ho BOILER REPAIR SUPERVISOR LAB BLOOD ORDERABLES Fin al Result Performing Organization Address [facility] Co de Phone Number [facility] [place] [address] * aPTT (03/01/2025 8:02 PM CDT) aPTT [...] Final Resul t Performing Organization Address [facility] Co de Phone Number [facility] [place] [address] * Protime-INR (03/01/2025 8:02 PM CDT) PT 13.4 10.2 - 13.5 sec INR 1.19 0.90 - 1.20 [facility] Comment: Interpretive data Oral anticoagulant therapeutic ranges: [...] Final Resul t Performing Organization Address [facility] Co de Phone Number [facility] [place] [address] * (ABNORMAL) CBC without differential (03/01/2025 8:02 PM CDT) WBC 8.66 3.80 - 9.90 K/cumm Hgb 7.8(L) 13.0 - 17.5 g/dL [facility] Hct 25.9(L) 38.9 - 50.3 % [facility] Plt 200 150 - 400 K/cumm [facility] MPV 10.6 9.1 - 12.3 fL [facility] RBC 2.82(L) 4.30 - 5.80 M/cumm [facility] MCV 91.8 81.3 - 96.4 fL [facility] MCH 27.7 27.1 - 33.3 pg [facility] MCHC 30.1(L) 32.3 - 35.7 g/dL [facility] RDW CV 15.5(H) 11.1 - 14.9 % [facility] RDW SD 52.6(H) 35.7 - 48.1 fL [facility] NRBC abs 0.00 0.00 - 0.01 K/cumm [facility] Blood 03/01/2025 8:02 PM CDT 03/01/2025 8:27 PM CDT Lucy Ho NP LAB BLOOD ORDERABLES Fin al Result Performing Organization Address City/[facility]/ZIP Co de Phone Number [facility] Department of [employer] [place], [place] [id number] * (ABNORMAL) Type and screen (03/01/2025 8:02 PM CDT) Bonifacio, indirect Positive(A) ABO Rh O Positive [facility] Blood 03/01/2025 8:02 PM CDT 03/01/2025 8:26 PM CDT Narrative [facility] - 03/01/2025 9:23 PM CDT Has the patient had Daratumumab or Isatuximab in the past 6 months?->Unknown Marilyn Morgan MD LAB BLOOD BANK TEST ORDERABLES F inal Result [facility] Department [place] [address] * (ABNORMAL) Basic metabolic panel (03/01/2025 8:02 PM CDT) [facility] Sodium 146(H) 135 - 145 mmol/L Potassium, pl 4.4 3.3 - 4.9 mmol/L [facility] Chloride 106 97 - 110 mmol/L [facility] CO2 34(H) 22 - 32 mmol/L [facility] Anion gap 6 2 - 15 mmol/L [facility] BUN 13 6 - 25 mg/dL [facility] Creatinine 0.72(L) 0.80 - 1.30 mg/dL [facility] Glucose 134 70 - 199 mg/dL [facility] Comment: Interpretive Data Fasting glucose >/= 126 [...] 2022. Calcium 7.9(L) 8.5 - 10.3 mg/dL [facility] Blood 03/01/2025 8:02 PM CDT 03/01/2025 8:27 PM CDT us Lucy Ho NP LAB BLOOD ORDERABLES Fin al Result Performing Organization Address City/[facility]/ZIP Co de Phone Number [facility] [place] [address] * RISK ASSESSOR Evaluate and Treat (FEES) (03/01/2025 11:34 AM [...] diet/thin liquids General Information Jerome Askew 03/01/25 RISK ASSESSOR Received On: 03/01/25 General Observations: Pt seen sitting upright in bed, alert, cooperative, able to follow simple commands. Pain Score: 0 If pain >4, was RN notified? N/A Patient Stated Goal/Comments: Pt did not state any ST related goals/comments. Clinical Impression & Professional Recommendations Diet Solids Recommendation: Dysphagia diet-Soft (tender/chopped meat) Diet Liquids Recommendations: [place] thick (No ice in drinks, no ice [...] deficits Secretions: Minimal Consistencies Administered: Thin liquids, [place] thick liquids, Purees, Solids Thin Liquids: Laryngeal Penetration: Present Aspiration Present: Yes Timing: Before Amount: Moderate Response to aspiration: None Cough: Non-productive Unsuccessful Modifications: Chin tuck, Repeat swallow, Cough Penetration Aspiration Scale-Thin: 8-Material enters the airway, passes below the vocal folds and no effort is made to eject [place] Scale-Vallecular Residue-Thin Liquids: Mild [place] Scale-Pyriform Sinus Residue-Thin Liquids: Mild [place] Thickened Liquids: Laryngeal Penetration: None Aspiration Present: No Penetration Aspiration Scale-[place]: 1-Material does not enter airway [place] Scale-Vallecular Residue-[place] Thickened Liquids: Mild [place] Scale-Pyriform Sinus Residue-[place] Thickened Liquids: Mild Purees: Laryngeal Penetration: None Aspiration Present: No Successful Modifications: Alternated liquids and solids Penetration Aspiration Scale-Puree: 1-Material does not enter airway [place] Scale-Vallecular Residue-Puree: Moderate [place] Scale-Pyriform Sinus Residue-Puree: Mild Solids: Laryngeal Penetration: None Aspiration Present: No Successful Modifications: Alternated liquids and solids Penetration Aspiration Scale-Solids: 1-Material does not enter airway [place] Scale-Vallecular Residue-Solids: Moderate [place] Scale-Pyriform Sinus Residue-Solids: Mild Dysphagia Outcome and Severity Scale: Dysphagia Outcomes and Severity Scale: 3 Moderate dysphagia Levels 1 & 2 on the PATRICK indicate need for nonoral nutrition. Treatment Treatment was not provided this date. Please reference care plan for treatment goals and details, if indicated. Plan RISK ASSESSOR Frequency of Services during current admission: 2-3x/wk RISK ASSESSOR Recommendation (Add'l Services): [facility] Next Visit Plan:treatment/therapy Additional Referrals: PT/OT Discharge Summary Statement If this is the last swallow therapy visit, this serves as the discharge summary. us Marilyn Morgan MD RISK ASSESSOR ORDERABLES Final Result [facility] * (ABNORMAL) CBC without differential (03/01/2025 5:45 AM CDT) WBC 10.25(H) 3.80 - 9.90 K/cumm Hgb 8.7(L) 13.0 - 17.5 g/dL [facility] Hct 28.1(L) 38.9 - 50.3 % [facility] Plt 226 150 - 400 K/cumm [facility] MPV 10.6 9.1 - 12.3 fL [facility] RBC 3.12(L) 4.30 - 5.80 M/cumm [facility] MCV 90.1 81.3 - 96.4 fL [facility] MCH 27.9 27.1 - 33.3 pg [facility] MCHC 31.0(L) 32.3 - 35.7 g/dL [facility] RDW CV 15.4(H) 11.1 - 14.9 % [facility] RDW SD 50.7(H) 35.7 - 48.1 fL [facility] NRBC abs 0.00 0.00 - 0.01 K/cumm [facility] Blood 03/01/2025 5:45 AM CDT 03/01/2025 6:01 AM CDT us Lucy Ho NP LAB BLOOD ORDERABLES Fin al Result [facility] One [facility] Department [place] [address] * CT Head WO Contrast (03/01/2025 5:22 [...] ur Straw Yellow Clarity, ur Clear Clear [facility] Specific gravity, ur >1.042(H) 1.003 - 1.[address] [facility] pH, urine 6.0 [facility] Comment: Interpretive Data U rine pH is affected by diet, medications, systemic acid-base disturbances, and renal tubular function. pH may affect urinary stone formation. For example, urine pH below 6.0 may help reduce the tendency for calcium phosphate stones and pH greater than 6.0 may reduce the tendency for uric acid stone formation. Source: Mixers Current Interpretive Data was last revised on 2017 Protein, ur ql Trace Negative [facility] Glucose, ur ql Negative Negative [facility] Ketones, ur Negative Negative [facility] Bilirubin, ur Negative Negative [facility] Blood, ur Negative Negative [facility] Urobilinogen, ur <2.0 <2.0 mg/dL [facility] Nitrite, ur Negative Negative [facility] Leukocyte esterase, ur Negative Negative [facility] UA reflex comment Reflex conditions for microscopic UA and culture not met. [facility] Urine, indwelling catheter 03/01/2025 3:09 AM CDT 03/01/2025 3:35 AM CDT Lucy Ho NP LAB MICROBIOLOGY - [facility] AL ORDERABLES Final Result [facility] One [facility] Department [place] [address] * Respiratory pathogen panel Nasopharyngeal (03/01/2025 3:09 AM CDT) Pathologist [facility] Influenza A RNA Not Detected Not Detected Influenza B RNA Not Detected Not Detected [facility] RSV RNA Not Detected Not Detected [facility] COVID-19 RNA Not Detected Not Detected [facility] Coronavirus 229E RNA Not Detected Not Detected [facility] Coronavirus HKU1 RNA Not Detected Not Detected [facility] Coronavirus NL63 RNA Not Detected Not Detected [facility] Coronavirus OC43 RNA Not Detected Not Detected [facility] Adenovirus DNA Not Detected Not Detected [facility] Metapneumovirus RNA Not Detected Not Detected [facility] Rhinovirus/Enterov irus RNA Not Detected Not Detected [facility] Parainfluenza 1 RNA Not Detected Not Detected [facility] Parainfluenza 2 RNA Not Detected Not Detected [facility] Parainfluenza 3 RNA Not Detected Not Detected [facility] Parainfluenza 4 RNA Not Detected Not Detected [facility] B. pertussis DNA Not Detected Not Detected [facility] B. parapertussis DNA Not Detected Not Detected [facility] C. pneumoniae DNA Not Detected Not Detected [facility] M. pneumoniae DNA Not Detected Not Detected [facility] Nasopharyngeal 03/01/2025 3: 09 AM CDT 03/01/2025 3:44 AM CDT [facility] - 03/01/2025 4:42 AM CDT Is the Patient experiencing symptoms consistent with COVID?->No Surveillance testing for transplant patient?->No Interpretive Data The [employer] FilmArray Respiratory Panel (RP2.1) assay is a [...] assay has FDA clearance for testing of BOILER REPAIR SUPERVISOR swabs. The performance of additional specimen types has been assessed by the performing laboratory. The performance characteristics of this assay have been determined by [facility] Molecular Infectious Disease Laboratory. Current interpretive data was last revised on 22. Lucy Ho BOILER REPAIR SUPERVISOR LAB MICROBIOLOGY - GENER AL ORDERABLES Final Result Performing Organization Address [facility]/ZIP Co de Phone Number [facility] Department [place] [address] * Blood culture Blood (03/01/2025 3:09 AM [...] performance characteristics have been verified by the [facility]. For questions about this culture, contact the Microbiology Laboratory at [phone]. Interpretive data was last revised on 24. Lucy Ho LAB MICROBIOLOGY - GENER AL ORDERABLES Final Result Performing Organization Address [facility] Co de Phone Number [facility] Department [place] [address] * Blood culture Blood (03/01/2025 3:09 AM [...] performance characteristics have been verified by the [facility]. For questions about this culture, contact the Microbiology Laboratory at [phone]. Interpretive data was last revised on 24. Lucy Ho NP LAB MICROBIOLOGY - GENER AL ORDERABLES Final Result [facility] Department [place] [address] * Antibody identification (02/28/2025 8:47 PM CDT) Antibody ID 1 Anti Little e Blood 02/28/2025 8:47 PM CDT 02/28/2025 8:47 PM CDT us Lucy Ho NP LAB BLOOD BANK TEST ANTONIO WALKER Final Result Performing Organization Address City/[facility]/ZIP Co de Phone Number [facility] Department [place] [address] * ECG 12 lead (02/28/2025 8:02 PM CDT) Ventricular Rate EKG/Min 63 BPM [facility] Atrial Rate 63 BPM [facility] LA-Interval (MSEC) 218 ms [facility] QRS-Interval (MSEC) 92 ms [facility] QT-Interval (MSEC) 398 ms [facility] QTc 407 ms [facility] P Lula 49 degrees [facility] R Lula -25 degrees [facility] T Lula 10 degrees [facility] Diagnosis Sinus rhythm with 1st [...] SAENZ M.D ([id number]) on 03/01/2025 5:26:48 PM [facility] 02/28/2025 8:02 PM CDT 03/01/2025 5:26 PM CDT Lucy Ho NP ECG ORDERABLES Final Re sult Performing Organization Address [facility]/ZIP Co de Phone Number [facility] * XR chest 1 [...] NP LAB BLOOD ORDERABLES Fin al Result [facility] Department [place] [address] * eGFR (02/28/2025 7:42 PM CDT) eGFR [...] ORDERABLES Fin al Result [facility] Department [place] [address] * aPTT (02/28/2025 7:42 PM CDT) aPTT 32 26 - 38 sec Comment: Interpretive Data Heparin therapeutic range: 66.0 - 100.0 seconds. Range based on correlation with therapeutic heparin activity range of 0.3 - 0.7 Units/mL. Current interpretive data was last revised on 2023. Blood 02/28/2025 7:42 PM CDT 02/28/2025 7:57 PM CDT us Lucy Ho BOILER REPAIR SUPERVISOR LAB BLOOD ORDERABLES Fin al Result Performing Organization Address [facility] [place] [address] * Protime-INR (02/28/2025 7:42 PM CDT) [facility] PT 13.3 10.2 - 13.5 sec INR 1.18 0.90 - 1.20 [facility] Comment: Interpretive data Oral anticoagulant therapeutic ranges: Venous thromboembolism prophylaxis or treatment: 2.0-3.0 CARDIOLOGY Standard range: 2.0-3.0 High-intensity range: 2.5-3.5 Refer to indication-specific guidelines for appropriate target ranges for prosthetic heart valve replacement. Current interpretive data was last revised on 2019. Blood 02/28/2025 7:42 PM CDT 02/28/2025 7:57 PM CDT Lucy Ho NP LAB BLOOD ORDERABLES Fin al Result Performing Organization Address [facility] de Phone Number [facility] Department [place] [address] * (ABNORMAL) CBC without differential (02/28/2025 7:42 PM CDT) [facility] WBC 8.91 3.80 - 9.90 K/cumm Hgb 9.2(L) 13.0 - 17.5 g/dL [facility] Hct 29.5(L) 38.9 - 50.3 % [facility] Plt 223 150 - 400 K/cumm [facility] MPV 10.5 9.1 - 12.3 fL [facility] RBC 3.26(L) 4.30 - 5.80 M/cumm [facility] MCV 90.5 81.3 - 96.4 fL [facility] MCH 28.2 27.1 - 33.3 pg [facility] MCHC 31.2(L) 32.3 - 35.7 g/dL [facility] RDW CV 15.5(H) 11.1 - 14.9 % [facility] RDW SD 51.8(H) 35.7 - 48.1 fL [facility] NRBC abs 0.00 0.00 - 0.01 K/cumm [facility] Blood 02/28/2025 7:42 PM CDT 02/28/2025 7:57 PM CDT Lucy Ho NP LAB BLOOD ORDERABLES Fin al Result Performing Organization Address [facility] de Phone Number [facility] [place] [address] * (ABNORMAL) Type and screen (02/28/2025 7:42 PM CDT) Pathologist [facility] ABO Rh O Positive Bonifacio, indirect Positive(A) [facility] Blood 02/28/2025 7:42 PM CDT 02/28/2025 7:54 PM CDT Narrative [facility] - 02/28/2025 8:47 PM CDT Has the patient had Daratumumab or Isatuximab in the past 6 months?->Unknown Lucy Ho NP LAB BLOOD BANK TEST ORDE RABLES Final Result Performing Organization Address [facility] de Phone Number [facility] [place] [address] * Phosphorus (02/28/2025 7:42 PM CDT) Pathologist [facility] Phosphorus, pl 3.9 2.3 - 4.5 mg/dL Blood 02/28/2025 7:42 PM CDT 02/28/2025 7:56 PM CDT Lucy Ho NP LAB BLOOD ORDERABLES Fin al Result Performing Organization Address [facility] Co de Phone Number [facility] [place] [address] * Magnesium (02/28/2025 7:42 PM CDT) [facility] Magnesium 2.3 1.4 - 2.5 mg/dL Blood 02/28/2025 7:42 PM CDT 02/28/2025 7:56 PM CDT Lucy Ho [employer]ILER REPA[employer] SUPERVISOR LAB BLOOD ORDERABLES Fin al Result Performing Organization Address [facility] [place] [address] * Hemoglobin A1c (02/28/2025 7:42 PM CDT) [facility] Hgb A1C 5.4 4.0 - 5.6 % Estimated Average Glucose 108 mg/dL [facility] Comment: The ADA recommends reporting an estimated Average Glucose (eAG) with all Hemoglobin A1c results using the equation derived from a study of 507 normal and diabetic adults. Minority populations were underrepresented and children were not included. (Diabetes Care 2020; 43(S1): S66-S76). The eAG is not equivalent to a fasting glucose. Blood 02/28/2025 7:42 PM CDT 02/28/2025 8:02 PM CDT Result [facility] Liza Traylor MD LAB BLOOD ORDERABLES Fin al Result Performing Organization Address [facility] de Phone Number [facility] [place] [address] * (ABNORMAL) Blood gas, arterial (02/28/2025 7:42 PM CDT) [facility] pH, Art 7.38 7.35 - 7.45 PCO2, Arterial 53(H) 35 - 45 mmHg [facility] PO2, Arterial 78(L) 83 - 108 mmHg [facility] HCO3 Art (Calculated) 31(H) 20 - 30 mmol/L [facility] BE, art 5 mmol/L [facility] Comment: Interpretive Data No Reference Range Established Current Interpretive Data was last revised on 2017 O2 Sat Art (Measured) 96(H) 90 - 95 % [facility] Blood 02/28/2025 7:42 PM CDT 02/28/2025 7:49 PM CDT us Lucy De Jesus [place] [employer]PA[employer] SUPERVISOR LAB BLOOD ORDERABLES Fin al Result [facility] Department [place] [address] * (ABNORMAL) Lipid panel (02/28/2025 7:42 PM [...] revised on 2018. Triglycerides 45 <=149 mg/dL [facility] Comment: Interpretive Data Ages < or = [...] revised on 2018. HDL 27(L) >=40 mg/dL [facility] Comment: Interpretive Data Ages < or = [...] on 2018. LDL, calculated 28 <=129 mg/dL [facility] Comment: Interpretive Data Ages < or [...] revised on 2024. Non-HDL Cholesterol 41 mg/dL [facility] Comment: Interpretive Data Ages < or = [...] last revised on 2018. Chol/HDL ratio 3 [facility] Blood 02/28/2025 7:42 PM CDT 02/28/2025 7:56 PM CDT us Jaquelin Monroy MD LAB BLOOD ORDERABLES Fin al Result [facility] Department [place] [address] * (ABNORMAL) Comprehensive metabolic panel (02/28/2025 7:42 PM CDT) Sodium 144 135 - 145 mmol/L Potassium, pl 3.9 3.3 - 4.9 mmol/L [facility] Chloride 106 97 - 110 mmol/L [facility] CO2 33(H) 22 - 32 mmol/L [facility] Anion gap 5 2 - 15 mmol/L [facility] BUN 18 6 - 25 mg/dL [facility] Creatinine 0.88 0.80 - 1.30 mg/dL [facility] Glucose 117 70 - 199 mg/dL [facility] Comment: Interpretive Data Fasting glucose >/= 126 [...] 2022. Calcium 8.3(L) 8.5 - 10.3 mg/dL [facility] Bilirubin, total 0.3 0.1 - 1.2 mg/dL [facility] Protein, pl 5.9(L) 6.5 - 8.5 g/dL [facility] Albumin 2.8(L) 3.5 - 5.0 g/dL [facility] Alk phos 89 40 - 130 Units/L [facility] ALT 18 7 - 55 Units/L [facility] AST 28 10 - 50 Units/L [facility] Blood 02/28/2025 7:42 PM CDT 02/28/2025 7:56 PM CDT us Lucy Ho NP LAB BLOOD ORDERABLES Fin al Result [facility] [place] [address] * POCT glucose (02/28/2025 7:27 PM CDT) Glucose, POC 126 70 - 199 mg/dL Blood 02/28/2025 7:27 PM CDT 02/28/2025 7:27 PM CDT Liza Traylor MD LAB POCT ORDERABLES - DE VICE Final Result Performing Organization Address [facility] Co de Phone Number [facility]I [facility] Department [place] [address] * CTA/CTP Rapid Stroke (C) (02/28/2025 7:13 [...] the CTA were generated on a dedicated workstation/field observer. [employer] software (Handy) was used for automated analyses of the CTA. CT perfusion of the brain was performed with intravenous contrast using a separate data acquisition. These data were transmitted to a separate workstation/field observer for processing by [employer] software (Handy) to produce automated calculations of the estimated [...] Artery: no occlusion or significant stenosis L [employer]ING [employer]ILER HAND: no occlusion or significant stenosis R [employer] HAND: Mild to moderate narrowing. No occlusion. There [...] the CTA were generated on a dedicated workstation/field observer. [employer] software (Handy) was used for automated analyses of the CTA. CT perfusion of the brain was performed with intravenous contrast using a separate data acquisition. These data were transmitted to a separate workstation/field observer for processing by [employer] software (Handy) to produce automated calculations of the estimated [...] Artery: no occlusion or significant stenosis L [employer] HAND: no occlusion or significant stenosis R [employer] HAND: Mild to moderate narrowing. No occlusion. There [...] LAB BLOOD ORDERABLES Fin al Result GIGI [facility] Department of Laboratories [place], [place] [id number] * (ABNORMAL) Differential, auto (02/28/2025 6:50 PM CDT) Neutrophil abs 7.36(H) 1.50 - 6.50 K/cumm Imm gran abs 0.03 0.00 - 0.10 K/cumm [facility] Lymphocyte abs 0.76(L) 0.80 - 3.30 K/cumm [facility] Monocyte abs 0.87(H) 0.20 - 0.80 K/cumm [facility] Eosinophil abs 0.20 0.00 - 0.50 K/cumm [facility] Basophil abs 0.02 0.00 - 0.10 K/cumm [facility] Neutrophil pct 79.7 % [facility] Comment: Interpretive Data Percent cell count reference ranges are not reported, since discordance with absolute values may lead to misinterpretation of CBC data. Current Interpretive Data was last revised on 2017. Imm gran pct 0.3 % [facility] Comment: Interpretive Data Percent cell count reference ranges are not reported, since discordance with absolute values may lead to misinterpretation of CBC data. Current Interpretive Data was last revised on 2017. Lymphocyte pct 8.2 % [facility] Comment: Interpretive Data Percent cell count reference ranges are not reported, since discordance with absolute values may lead to misinterpretation of CBC data. Current Interpretive Data was last revised on 2017. Monocyte pct 9.4 % [facility] Comment: Interpretive Data Percent cell count reference ranges are not reported, since discordance with absolute values may lead to misinterpretation of CBC data. Current Interpretive Data was last revised on 2017. Eosinophil pct 2.2 % [facility] Comment: Interpretive Data Percent cell count reference ranges are not reported, since discordance with absolute values may lead to misinterpretation of CBC data. Current Interpretive Data was last revised on 2017. Basophil pct 0.2 % [facility] Comment: Interpretive Data Percent cell count reference ranges are not reported, since discordance with absolute values may lead to misinterpretation of CBC data. Current Interpretive Data was last revised on 2017. Blood 02/28/2025 6:50 PM CDT 02/28/2025 7:03 PM CDT us Jaquelin Monroy MD LAB BLOOD ORDERABLES Fin al Result Performing Organization Address City/State/[facility] de Phone Number [facility] Department [place] [address] * (ABNORMAL) CBC with auto differential (02/28/2025 6:50 PM CDT) Pathologist [facility] WBC 9.24 3.80 - 9.90 K/cumm Hgb 8.9(L) 13.0 - 17.5 g/dL [facility] Hct 28.9(L) 38.9 - 50.3 % [facility] Plt 221 150 - 400 K/cumm [facility] MPV 10.6 9.1 - 12.3 fL [facility] RBC 3.20(L) 4.30 - 5.80 M/cumm [facility] MCV 90.3 81.3 - 96.4 fL [facility] MCH 27.8 27.1 - 33.3 pg [facility] MCHC 30.8(L) 32.3 - 35.7 g/dL [facility] RDW CV 15.4(H) 11.1 - 14.9 % [facility] RDW SD 50.8(H) 35.7 - 48.1 fL [facility] NRBC abs 0.00 0.00 - 0.01 K/cumm [facility] Blood 02/28/2025 6:50 PM CDT 02/28/2025 7:03 PM CDT Jaquelin Monroy MD LAB BLOOD ORDERABLES Fin al Result Performing Organization Address [facility] Co de Phone Number [facility] Department [place] [address] * Lactate, whole blood (02/28/2025 6:50 PM CDT) [facility] Lactate, bld 0.9 0.7 - 2.0 mmol/L Blood 02/28/2025 6:50 PM CDT 02/28/2025 6:57 PM CDT Jaquelin Monroy MD LAB BLOOD ORDERABLES Fin al Result Performing Organization Address City/[facility] Co de Phone Number [facility] [place] [address] * Magnesium (02/28/2025 6:50 PM CDT) Pathologist [facility] Magnesium 2.0 1.4 - 2.5 mg/dL Blood 02/28/2025 6:50 PM CDT 02/28/2025 7:03 PM CDT Jaquelin Monroy MD LAB BLOOD ORDERABLES Fin al Result Performing Organization Address [facility] de Phone Number [facility] [place] [address] * (ABNORMAL) Blood gas, venous (02/28/2025 6:50 PM CDT) Pathologist [facility] pH, Venous 7.34 7.32 - 7.43 PCO2, Venous 59(H) 40 - 50 mmHg [facility] PO2, Venous 58 mmHg [facility] Comment: Interpretive Data No Reference Range Established Current Interpretive Data was last revised on 2017. HCO3 Venous, Calculated 31(H) 20 - 30 mmol/L [facility] BE, venous 4 mmol/L [facility] Comment: Interpretive Data No Reference Range Established Current Interpretive Data was last revised on 2017. Blood 02/28/2025 6:50 PM CDT 02/28/2025 6:57 PM CDT Jaquelin Monroy MD LAB BLOOD ORDERABLES Fin al Result Performing Organization Address [facility] Co de Phone Number [facility] [place] [address] * (ABNORMAL) Hepatic function panel (02/28/2025 6:50 PM CDT) Pathologist [facility] Bilirubin, total 0.3 0.1 - 1.2 mg/dL Bilirubin, direct <0.2 0.1 - 0.3 mg/dL [facility] Protein, pl 5.9(L) 6.5 - 8.5 g/dL [facility] Albumin 3.0(L) 3.5 - 5.0 g/dL [facility] Alk phos 91 40 - 130 Units/L [facility] ALT 23 7 - 55 Units/L [facility] AST 27 10 - 50 Units/L [facility] Blood 02/28/2025 6:50 PM CDT 02/28/2025 7:03 PM CDT us Jaquelin Monroy MD LAB BLOOD ORDERABLES Fin al Result [facility] Department [place] [address] * (ABNORMAL) Basic metabolic panel (02/28/2025 6:50 PM CDT) Sodium 148(H) 135 - 145 mmol/L Potassium, pl 4.5 3.3 - 4.9 mmol/L [facility] Chloride 108 97 - 110 mmol/L [facility] CO2 33(H) 22 - 32 mmol/L [facility] Anion gap 7 2 - 15 mmol/L [facility] BUN 17 6 - 25 mg/dL [facility] Creatinine 0.85 0.80 - 1.30 mg/dL [facility] Glucose 136 70 - 199 mg/dL [facility] Comment: Interpretive Data Fasting glucose >/= 126 [...] 2022. Calcium 7.6(L) 8.5 - 10.3 mg/dL [facility] Blood 02/28/2025 6:50 PM CDT 02/28/2025 7:03 PM CDT Jaquelin Monroy MD LAB BLOOD ORDERABLES Fin al Result Performing Organization Address City/[facility]/ZIP Co de Phone Number [facility] [place] [address] * (ABNORMAL) Arterial Blood gas w/Lactate POCT (02/28/2025 6:49 PM CDT) Lactate POC i-STAT 0.5(L) 0.7 - 2.0 mmol/L pH POC 7.34(L) 7.35 - 7.45 [facility] pCO2, Art POC 60(H) 35 - 45 mmHg [facility] PO2 POC 51(L) 80 - [address] [facility] CO2, total POC 35(H) 20 - 30 mmol/L [facility] HCO3, POC 33(H) 21 - 30 mmol/L [facility] BE POC 7(H) -2 - 3 mmol/L [facility] O2 sat POC 82(L) 95 - 98 % [facility] Blood 02/28/2025 6:49 PM CDT 02/28/2025 6:49 PM CDT Jaquelin Monroy MD LAB BLOOD ORDERABLES Fin al Result Performing Organization Address [facility]/ZIP Co de Phone Number [facility] Department [place] [address] * POCT glucose (02/28/2025 6:30 PM CDT) Glucose, POC 140 70 - 199 mg/dL Blood 02/28/2025 6:30 PM CDT 02/28/2025 6:30 PM CDT Jaquelin Monroy MD LAB POCT ORDERABLES - DE VICE Final Result [facility] Department [place] [address] * XR Sacrum Coccyx 2 or More [...] MD LAB BLOOD ORDERABLES Final R esult [facility] Department [place] [address] * (ABNORMAL) Differential, auto (02/27/2025 10:55 PM CDT) Neutrophil abs 7.32(H) 1.50 - 6.50 K/cumm Imm gran abs 0.05 0.00 - 0.10 K/cumm [facility] Lymphocyte abs 0.88 0.80 - 3.30 K/cumm [facility] Monocyte abs 0.93(H) 0.20 - 0.80 K/cumm [facility] Eosinophil abs 0.21 0.00 - 0.50 K/cumm [facility] Basophil abs 0.03 0.00 - 0.10 K/cumm [facility] Neutrophil pct 77.8 % [facility] Comment: Interpretive Data Percent cell count reference ranges are not reported, since discordance with absolute values may lead to misinterpretation of CBC data. Current Interpretive Data was last revised on 2017. Imm gran pct 0.5 % [facility] Comment: Interpretive Data Percent cell count reference ranges are not reported, since discordance with absolute values may lead to misinterpretation of CBC data. Current Interpretive Data was last revised on 2017. Lymphocyte pct 9.3 % [facility] Comment: Interpretive Data Percent cell count reference ranges are not reported, since discordance with absolute values may lead to misinterpretation of CBC data. Current Interpretive Data was last revised on 2017. Monocyte pct 9.9 % [facility] Comment: Interpretive Data Percent cell count reference ranges are not reported, since discordance with absolute values may lead to misinterpretation of CBC data. Current Interpretive Data was last revised on 2017. Eosinophil pct 2.2 % [facility] Comment: Interpretive Data Percent cell count reference ranges are not reported, since discordance with absolute values may lead to misinterpretation of CBC data. Current Interpretive Data was last revised on 2017. Basophil pct 0.3 % [facility] Comment: Interpretive Data Percent cell count reference ranges are not reported, since discordance with absolute values may lead to misinterpretation of CBC data. Current Interpretive Data was last revised on 2017. Blood 02/27/2025 10:5 5 PM CDT 02/28/2025 12:37 AM CDT us Shayne Hussein MD LAB BLOOD ORDERABLES Final R esult [facility] Department [place] [address] * (ABNORMAL) CBC with auto differential (02/27/2025 10:55 PM CDT) WBC 9.42 3.80 - 9.90 K/cumm Hgb 8.9(L) 13.0 - 17.5 g/dL [facility] Hct 28.3(L) 38.9 - 50.3 % [facility] Plt 224 150 - 400 K/cumm [facility] MPV 10.6 9.1 - 12.3 fL [facility] RBC 3.15(L) 4.30 - 5.80 M/cumm [facility] MCV 89.8 81.3 - 96.4 fL [facility] MCH 28.3 27.1 - 33.3 pg [facility] MCHC 31.4(L) 32.3 - 35.7 g/dL [facility] RDW CV 15.5(H) 11.1 - 14.9 % [facility] RDW SD 50.9(H) 35.7 - 48.1 fL [facility] NRBC abs 0.00 0.00 - 0.01 K/cumm [facility] Blood 02/27/2025 10:5 5 PM CDT 02/28/2025 12:37 AM CDT Shayne Hussein MD LAB BLOOD ORDERABLES Final R esult Performing Organization Address City/[facility] Co de Phone Number [facility] [place] [place] [address] * (ABNORMAL) Basic metabolic panel (02/27/2025 10:55 PM CDT) [facility] Sodium 141 135 - 145 mmol/L Potassium, pl 3.6 3.3 - 4.9 mmol/L [facility] Chloride 105 97 - 110 mmol/L [facility] CO2 30 22 - 32 mmol/L [facility] Anion gap 6 2 - 15 mmol/L [facility] BUN 18 6 - 25 mg/dL [facility] Creatinine 0.90 0.80 - 1.30 mg/dL [facility] Glucose 105 70 - 199 mg/dL [facility] Comment: Interpretive Data Fasting glucose >/= 126 [...] 2022. Calcium 7.8(L) 8.5 - 10.3 mg/dL [facility] Blood 02/27/2025 10:5 5 PM CDT 02/28/2025 12:32 AM CDT Shayne Hussein MD LAB BLOOD ORDERABLES Final R esult Performing Organization Address [facility]/ZIP Co de Phone Number [facility] [place] [address] * POCT glucose (02/27/2025 11:31 AM CDT) Glucose, POC 138 70 - 199 mg/dL Blood 02/27/2025 11:3 1 AM CDT 02/27/2025 11:31 AM CDT us Jaquelin Monroy MD LAB POCT ORDERABLES - DE VICE Final Result Performing Organization Address City/[facility]/ZIP Co de Phone Number [facility] [place] [address] * eGFR (02/26/2025 11:33 PM CDT) eGFR [...] ORDERABLES Final R esult Performing Organization Address City/[facility]/ZIP Co de Phone Number [facility] [place] [address] * (ABNORMAL) Differential, auto (02/26/2025 11:33 PM CDT) Neutrophil abs 5.82 1.50 - 6.50 K/cumm Imm gran abs 0.04 0.00 - 0.10 K/cumm [facility] Lymphocyte abs 0.74(L) 0.80 - 3.30 K/cumm [facility] Monocyte abs 0.82(H) 0.20 - 0.80 K/cumm [facility] Eosinophil abs 0.25 0.00 - 0.50 K/cumm [facility] Basophil abs 0.02 0.00 - 0.10 K/cumm [facility] Neutrophil pct 75.6 % [facility] Comment: Interpretive Data Percent cell count reference ranges are not reported, since discordance with absolute values may lead to misinterpretation of CBC data. Current Interpretive Data was last revised on 2017. Imm gran pct 0.5 % [facility] Comment: Interpretive Data Percent cell count reference ranges are not reported, since discordance with absolute values may lead to misinterpretation of CBC data. Current Interpretive Data was last revised on 2017. Lymphocyte pct 9.6 % [facility] Comment: Interpretive Data Percent cell count reference ranges are not reported, since discordance with absolute values may lead to misinterpretation of CBC data. Current Interpretive Data was last revised on 2017. Monocyte pct 10.7 % [facility] Comment: Interpretive Data Percent cell count reference ranges are not reported, since discordance with absolute values may lead to misinterpretation of CBC data. Current Interpretive Data was last revised on 2017. Eosinophil pct 3.3 % [facility] Comment: Interpretive Data Percent cell count reference ranges are not reported, since discordance with absolute values may lead to misinterpretation of CBC data. Current Interpretive Data was last revised on 2017. Basophil pct 0.3 % [facility] Comment: Interpretive Data Percent cell count reference ranges are not reported, since discordance with absolute values may lead to misinterpretation of CBC data. Current Interpretive Data was last revised on 2017. Blood 02/26/2025 11:3 3 PM CDT 02/27/2025 12:06 AM CDT us Shayne Hussein MD LAB BLOOD ORDERABLES Final R esult Performing Organization Address City/[facility]/ZIP Co de Phone Number [facility] [place] [address] * (ABNORMAL) CBC with auto differential (02/26/2025 11:33 PM CDT) Pathologist [facility] WBC 7.69 3.80 - 9.90 K/cumm Hgb 8.9(L) 13.0 - 17.5 g/dL [facility] Hct 28.8(L) 38.9 - 50.3 % [facility] Plt 174 150 - 400 K/cumm [facility] MPV 10.7 9.1 - 12.3 fL [facility] RBC 3.16(L) 4.30 - 5.80 M/cumm [facility] MCV 91.1 81.3 - 96.4 fL [facility] MCH 28.2 27.1 - 33.3 pg [facility] MCHC 30.9(L) 32.3 - 35.7 g/dL [facility] RDW CV 15.2(H) 11.1 - 14.9 % [facility] RDW SD 51.2(H) 35.7 - 48.1 fL [facility] NRBC abs 0.00 0.00 - 0.01 K/cumm [facility] Blood 02/26/2025 11:3 3 PM CDT 02/27/2025 12:06 AM CDT us Shayne Hussein MD LAB BLOOD ORDERABLES Final R esult [facility] [place] [address] * (ABNORMAL) Basic metabolic panel (02/26/2025 11:33 PM CDT) Sodium 142 135 - 145 mmol/L Potassium, pl 3.8 3.3 - 4.9 mmol/L [facility] Chloride 106 97 - 110 mmol/L [facility] CO2 31 22 - 32 mmol/L [facility] Anion gap 5 2 - 15 mmol/L [facility] BUN 17 6 - 25 mg/dL [facility] Creatinine 0.85 0.80 - 1.30 mg/dL [facility] Glucose 111 70 - 199 mg/dL [facility] Comment: Interpretive Data Fasting glucose >/= 126 [...] 2022. Calcium 8.0(L) 8.5 - 10.3 mg/dL [facility] Blood 02/26/2025 11:3 3 PM CDT 02/27/2025 12:05 AM CDT us Shayne Hussein MD LAB BLOOD ORDERABLES Final R esult [facility] [place] [address] * Potassium, urine, random (02/26/2025 4:41 PM CDT) Pathologist [facility] Potassium conc, ur 19.1 mmol/L Comment: Interpretive Data No reference range established. Current interpretive data was last revised 2018. Urine 02/26/2025 4:41 PM CDT 02/26/2025 4:57 PM CDT us Ros Olivares NP LAB URINE ORDERABLES Final Result [facility] [place] [address] * Creatinine, urine, random (02/26/2025 4:41 PM CDT) Creatinine Ur 136.2 mg/dL Comment: Interpretive Data No reference range established. Current interpretive data was last revised 2018. Urine 02/26/2025 4:41 PM CDT 02/26/2025 4:57 PM CDT Ros Olivares NP LAB URINE ORDERABLES Final Result Performing Organization Address [facility] Co de Phone Number [facility] Department [place] [address] * Chloride, urine, random (02/26/2025 4:41 PM CDT) Chloride, ur 91 mmol/L Comment: Interpretive Data No reference range established. Current interpretive data was last revised 2018. Urine 02/26/2025 4:41 PM CDT 02/26/2025 4:57 PM CDT Ros Olivares NP LAB URINE ORDERABLES Final Result Performing Organization Address [facility] de Phone Number [facility] Department [place] [address] * eGFR (02/26/2025 6:13 AM CDT) eGFR [...] Olivares NP LAB BLOOD ORDERABLES Final Result [facility] One [facility] Department [place] [address] * (ABNORMAL) Differential, auto (02/26/2025 6:13 AM CDT) Neutrophil abs 5.34 1.50 - 6.50 K/cumm Imm gran abs 0.03 0.00 - 0.10 K/cumm [facility] Lymphocyte abs 0.63(L) 0.80 - 3.30 K/cumm [facility] Monocyte abs 0.93(H) 0.20 - 0.80 K/cumm [facility] Eosinophil abs 0.19 0.00 - 0.50 K/cumm [facility] Basophil abs 0.01 0.00 - 0.10 K/cumm [facility] Neutrophil pct 75.0 % [facility] Comment: Interpretive Data Percent cell count reference ranges are not reported, since discordance with absolute values may lead to misinterpretation of CBC data. Current Interpretive Data was last revised on 2017. Imm gran pct 0.4 % [facility] Comment: Interpretive Data Percent cell count reference ranges are not reported, since discordance with absolute values may lead to misinterpretation of CBC data. Current Interpretive Data was last revised on 2017. Lymphocyte pct 8.8 % [facility] Comment: Interpretive Data Percent cell count reference ranges are not reported, since discordance with absolute values may lead to misinterpretation of CBC data. Current Interpretive Data was last revised on 2017. Monocyte pct 13.0 % [facility] Comment: Interpretive Data Percent cell count reference ranges are not reported, since discordance with absolute values may lead to misinterpretation of CBC data. Current Interpretive Data was last revised on 2017. Eosinophil pct 2.7 % [facility] Comment: Interpretive Data Percent cell count reference ranges are not reported, since discordance with absolute values may lead to misinterpretation of CBC data. Current Interpretive Data was last revised on 2017. Basophil pct 0.1 % [facility] Comment: Interpretive Data Percent cell count reference ranges are not reported, since discordance with absolute values may lead to misinterpretation of CBC data. Current Interpretive Data was last revised on 2017. Blood 02/26/2025 6:13 AM CDT 02/26/2025 6:26 AM CDT us Shayne Hussein MD LAB BLOOD ORDERABLES Final R esult [facility] One [facility] Department [place] [address] * (ABNORMAL) CBC with auto differential (02/26/2025 6:13 AM CDT) WBC 7.13 3.80 - 9.90 K/cumm Hgb 8.4(L) 13.0 - 17.5 g/dL [facility] Hct 26.6(L) 38.9 - 50.3 % [facility] Plt 182 150 - 400 K/cumm [facility] MPV 10.4 9.1 - 12.3 fL [facility] RBC 2.99(L) 4.30 - 5.80 M/cumm [facility] MCV 89.0 81.3 - 96.4 fL [facility] MCH 28.1 27.1 - 33.3 pg [facility] MCHC 31.6(L) 32.3 - 35.7 g/dL [facility] RDW CV 15.5(H) 11.1 - 14.9 % [facility] RDW SD 50.5(H) 35.7 - 48.1 fL [facility] NRBC abs 0.00 0.00 - 0.01 K/cumm [facility] Blood 02/26/2025 6:13 AM CDT 02/26/2025 6:26 AM CDT Shayne Hussein MD LAB BLOOD ORDERABLES Final R esult Performing Organization Address City/[facility] Co de Phone Number [facility] [place] [address] * Magnesium (02/26/2025 6:13 AM CDT) [facility] Magnesium 2.2 1.4 - 2.5 mg/dL Blood 02/26/2025 6:13 AM CDT 02/26/2025 6:26 AM CDT Shayne Hussein MD LAB BLOOD ORDERABLES Final R [facility] Performing Organization Address [facility] de Phone Number [facility] [place] [address] * (ABNORMAL) Basic metabolic panel (02/26/2025 6:13 AM CDT) [facility] Sodium 143 135 - 145 mmol/L Potassium, pl 3.3 3.3 - 4.9 mmol/L [facility] Chloride 104 97 - 110 mmol/L [facility] CO2 28 22 - 32 mmol/L [facility] Anion gap 11 2 - 15 mmol/L [facility] BUN 15 6 - 25 mg/dL [facility] Creatinine 0.83 0.80 - 1.30 mg/dL [facility] Glucose 102 70 - 199 mg/dL [facility] Comment: Interpretive Data Fasting glucose >/= 126 [...] 2022. Calcium 7.9(L) 8.5 - 10.3 mg/dL [facility] Blood 02/26/2025 6:13 AM CDT 02/26/2025 6:26 AM CDT us Ros Olivares NP LAB BLOOD ORDERABLES Final Result Performing Organization Address City/[facility] Co de Phone Number [facility] [place] [address] * eGFR (02/25/2025 10:30 PM CDT) eGFR [...] ORDERABLES Final R esult Performing Organization Address City/[facility]/ZIP Co de Phone Number [facility] [place] [address] * Magnesium (02/25/2025 10:30 PM CDT) Pathologist [facility] Magnesium 2.1 1.4 - 2.5 mg/dL Blood 02/25/2025 10:3 0 PM CDT 02/25/2025 10:39 PM CDT us Shayne Hussein MD LAB BLOOD ORDERABLES Final R esult [facility] One [facility] Department [place] [address] * (ABNORMAL) Basic metabolic panel (02/25/2025 10:30 PM CDT) [facility] Sodium 139 135 - 145 mmol/L Potassium, pl 3.7 3.3 - 4.9 mmol/L [facility] Chloride 101 97 - 110 mmol/L [facility] CO2 31 22 - 32 mmol/L [facility] Anion gap 7 2 - 15 mmol/L [facility] BUN 16 6 - 25 mg/dL [facility] Creatinine 0.78(L) 0.80 - 1.30 mg/dL [facility] Glucose 110 70 - 199 mg/dL [facility] Comment: Interpretive Data Fasting glucose >/= 126 [...] 2022. Calcium 8.3(L) 8.5 - 10.3 mg/dL [facility] Blood 02/25/2025 10:3 0 PM CDT 02/25/2025 10:39 PM CDT us Shayne Hussein MD LAB BLOOD ORDERABLES Final R esult Performing Organization Address City/[facility]/ZIP Co de Phone Number [facility] Department [place] [address] * (ABNORMAL) Potassium, whole blood (02/25/2025 2:44 PM CDT) Potassium, bld 3.2(L) 3.3 - 4.9 mmol/L Comment:Verified Blood 02/25/2025 2:44 PM CDT 02/25/2025 2:52 PM CDT Savannah Valenzuela MD PhD LAB BLOOD ORDERABLES Final Resu lt Performing Organization Address [facility] [place] [address] * (ABNORMAL) Troponin I high-sensitivity 4-hour (02/25/2025 2:14 PM CDT) Pathologist [facility] Trop I hs 55(H) <=35 ng/L Comment: Interpretive Data For further hscTnI resources including the diagnostic algorithm and an aid in interpretation, copy and paste this link: https://bjhlab.testcatalog.org/show/hsTrop-[email or web address] Current Interpretive Data last revised 2020. Trop I hs delta -13 ng/L [facility] Trop I hs interp Equivocal [facility] Blood 02/25/2025 2:14 PM CDT 02/25/2025 3:45 PM CDT Savannah Valenzuela MD PhD LAB BLOOD ORDERABLES Final Resu lt Performing Organization Address [facility]/ZIP Co de Phone Number [facility] [place] [address] * Bladder Catheterization (02/25/2025 12:13 PM CDT) [...] Rapid HIV, POC Negative Negative Lot Number [id number] QC Control Line Acceptable Blood 02/25/2025 11:2 0 AM CDT Ezekiel Roberts MD POINT OF CARE TEST ORDERABLES Fi nal Result * (ABNORMAL) Urinalysis reflex to microscopic and culture Urine, suprapubic catheter (02/25/2025 11:19 AM CDT) Color, ur Straw Yellow Clarity, ur Clear Clear [facility] Specific gravity, ur 1.016 1.003 - 1.030 [facility] pH, urine 6.0 [facility] Comment: Interpretive Data U rine pH is affected by diet, medications, systemic acid-base disturbances, and renal tubular function. pH may affect urinary stone formation. For example, urine pH below 6.0 may help reduce the tendency for calcium phosphate stones and pH greater than 6.0 may reduce the tendency for uric acid stone formation. Source: [place] Current Interpretive Data was last revised on 2017 Protein, ur ql 1+(A) Negative [facility] Glucose, ur ql Negative Negative [facility] Ketones, ur 2+(A) Negative [facility] Bilirubin, ur Negative Negative [facility] Blood, ur Trace(A) Negative [facility] Urobilinogen, ur <2.0 <2.0 mg/dL [facility] Nitrite, ur Negative Negative [facility] Leukocyte esterase, ur Negative Negative [facility] UA reflex comment Reflex to microscopic UA will be performed. [facility] Urine, suprapubic catheter 02/25/2025 11:19 AM CDT 02/25/2025 11:39 AM CDT Savannah Valenzuela MD PhD LAB MICROBIOLOGY - [facility] Final Result Performing Organization Address [facility] Co de Phone Number [facility] [place] [address] * (ABNORMAL) Urinalysis, microscopic only (02/25/2025 11:19 AM CDT) WBC, ur 11-20(A) 0 - 5 /HPF RBC, ur 3-5(A) 0 - 2 /HPF [facility] Epithelial cells, squamous, ur 1-5 0 - 5 /HPF [facility] Mucous, ur Present(A) [facility] Culture Reflex Comment Reflex to urine culture will be performed. [facility] Urine, suprapubic catheter 02/25/2025 11:19 AM CDT 02/25/2025 11:39 AM CDT Savannah Valenzuela MD PhD LAB URINE ORDERABLES Final Resu lt Performing Organization Address [facility] Co de Phone Number [facility] [place] [address] * Urine culture Urine, suprapubic catheter (02/25/2025 11:19 AM CDT) Report Final Report: Less than 100,000 colonies/mL (clinically insignificant growth based on current clinical standards) Organism (CLINICALLY INSIGNIFICANT GROWTH [facility] Urine, suprapubic catheter 02/25/2025 11:19 AM CDT 02/25/2025 3:07 PM CDT Narrative [facility] - 02/26/2025 6:15 PM CDT Urine culture reflexed based upon urinalysis results. Testing performed by [facility] ([phone]) Savannah Valenzuela MD PhD LAB MICROBIOLOGY - GENERAL ORDBelen [facility] Final Result Performing Organization Address [facility] Co de Phone Number [facility] Department [place] [address] * (ABNORMAL) Troponin I high-sensitivity series (baseline, 2hr, 4hr, 6hr) (02/25/2025 10:01 AM CDT) Pathologist [facility] Trop I hs 68(H) <=35 ng/L Comment: Interpretive Data For further hscTnI resources including the diagnostic algorithm and an aid in interpretation, copy and paste this link: https://bjhlab.testcatalog.org/show/[email or web address] Current Interpretive Data last revised 2020. Blood 02/25/2025 10:0 1 AM CDT 02/25/2025 10:49 AM CDT Savannah Valenzuela MD PhD LAB BLOOD ORDERABLES Final Resu lt Performing Organization Address [facility] Co de Phone Number [facility] Department [place] [address] * Sepsis Lactate w/ Reflex (02/25/2025 10:01 AM CDT) [facility] Sepsis Lactate 0.8 0.7 - 2.0 mmol/L Blood 02/25/2025 10:0 1 AM CDT 02/25/2025 10:25 AM CDT Savannah Valenzuela MD PhD LAB BLOOD ORDERABLES Final Resu lt Performing Organization Address [facility] Co de Phone Number [facility] Department [place] [address] * eGFR (02/25/2025 10:01 AM CDT) [facility] eGFR 90 >=60 mL/min/1. 73 m2 Comment: [...] PhD LAB BLOOD ORDERABLES Final Resu lt [facility] Department [place] [address] * (ABNORMAL) Differential, auto (02/25/2025 10:01 AM CDT) Neutrophil abs 9.62(H) 1.50 - 6.50 K/cumm Imm gran abs 0.07 0.00 - 0.10 K/cumm [facility] Lymphocyte abs 0.47(L) 0.80 - 3.30 K/cumm [facility] Monocyte abs 1.19(H) 0.20 - 0.80 K/cumm [facility] Eosinophil abs 0.02 0.00 - 0.50 K/cumm [facility] Basophil abs 0.02 0.00 - 0.10 K/cumm [facility] Neutrophil pct 84.5 % [facility] Comment: Interpretive Data Percent cell count reference ranges are not reported, since discordance with absolute values may lead to misinterpretation of CBC data. Current Interpretive Data was last revised on 2017. Imm gran pct 0.6 % [facility] Comment: Interpretive Data Percent cell count reference ranges are not reported, since discordance with absolute values may lead to misinterpretation of CBC data. Current Interpretive Data was last revised on 2017. Lymphocyte pct 4.1 % [facility] Comment: Interpretive Data Percent cell count reference ranges are not reported, since discordance with absolute values may lead to misinterpretation of CBC data. Current Interpretive Data was last revised on 2017. Monocyte pct 10.4 % [facility] Comment: Interpretive Data Percent cell count reference ranges are not reported, since discordance with absolute values may lead to misinterpretation of CBC data. Current Interpretive Data was last revised on 2017. Eosinophil pct 0.2 % [facility] Comment: Interpretive Data Percent cell count reference ranges are not reported, since discordance with absolute values may lead to misinterpretation of CBC data. Current Interpretive Data was last revised on 2017. Basophil pct 0.2 % [facility] Comment: Interpretive Data Percent cell count reference ranges are not reported, since discordance with absolute values may lead to misinterpretation of CBC data. Current Interpretive Data was last revised on 2017. Blood 02/25/2025 10:0 1 AM CDT 02/25/2025 10:49 AM CDT us Savannah Valenzuela MD PhD LAB BLOOD ORDERABLES Final Resu lt [facility] Department [place] [address] * (ABNORMAL) CBC with auto differential (02/25/2025 10:01 AM CDT) WBC 11.39(H) 3.80 - 9.90 K/cumm Hgb 9.2(L) 13.0 - 17.5 g/dL [facility] Hct 28.9(L) 38.9 - 50.3 % [facility] Plt 180 150 - 400 K/cumm [facility] MPV 10.3 9.1 - 12.3 fL [facility] RBC 3.29(L) 4.30 - 5.80 M/cumm [facility] MCV 87.8 81.3 - 96.4 fL [facility] MCH 28.0 27.1 - 33.3 pg [facility] MCHC 31.8(L) 32.3 - 35.7 g/dL [facility] RDW CV 15.1(H) 11.1 - 14.9 % [facility] RDW SD 48.9(H) 35.7 - 48.1 fL [facility] NRBC abs 0.00 0.00 - 0.01 K/cumm [facility] Blood 02/25/2025 10:0 1 AM CDT 02/25/2025 10:49 AM CDT Savannah Valenzuela MD PhD LAB BLOOD ORDERABLES Final Resu lt [facility] Department [place] [address] * Blood culture Blood Peripheral (02/25/2025 10:01 AM CDT) Report Final Report: No growth Blood (Peripheral) 02/25/2025 10:01 AM CDT 02/25/2025 10:26 AM CDT Narrative [facility] - 03/01/2025 12:01 PM CDT From a [...] performance characteristics have been verified by the [facility]. For questions about this culture, contact the Microbiology Laboratory at [phone]. Interpretive data was last revised on 24. Savannah Valenzuela MD PhD LAB MICROBIOLOGY - [facility] Final Result [facility] Department [place] [address] * Blood culture Blood Peripheral (02/25/2025 10:01 AM CDT) Report Final Report: No growth Blood (Peripheral) 02/25/2025 10:01 AM CDT 02/25/2025 10:26 AM CDT [facility] - 03/01/2025 12:01 PM CDT Draw [...] performance characteristics have been verified by the [facility]. For questions about this culture, contact the Microbiology Laboratory at [phone]. Interpretive data was last revised on 24. Savannah Valenzuela MD PhD [facility] Final Result Performing Organization Address City/[facility]/ZIP Co de Phone Number [facility] Department [place] [address] * Phosphorus (02/25/2025 10:01 AM CDT) Pathologist [facility] Phosphorus, pl 2.3 2.3 - 4.5 mg/dL Blood 02/25/2025 10:0 1 AM CDT 02/25/2025 10:23 AM CDT Ezekiel Roberts MD LAB BLOOD ORDERABLES Final Resul t Performing Organization Address [facility] Co de Phone Number [facility] [place] [address] * Magnesium (02/25/2025 10:01 AM CDT) [facility] Magnesium 2.0 1.4 - 2.5 mg/dL Blood 02/25/2025 10:0 1 AM CDT 02/25/2025 10:23 AM CDT Ezekiel Roberts MD LAB BLOOD ORDERABLES Final Resul t Performing Organization Address [facility] Co de Phone Number [facility] Department [place] [address] * (ABNORMAL) Comprehensive metabolic panel (02/25/2025 10:01 AM CDT) Pathologist [facility] Sodium 143 135 - 145 mmol/L Potassium, pl 2.7(L) 3.3 - 4.9 mmol/L [facility] Chloride 100 97 - 110 mmol/L [facility] CO2 32 22 - 32 mmol/L [facility] Anion gap 11 2 - 15 mmol/L [facility] BUN 19 6 - 25 mg/dL [facility] Creatinine 0.87 0.80 - 1.30 mg/dL [facility] Glucose 114 70 - 199 mg/dL [facility] Comment: Interpretive Data Fasting glucose >/= 126 [...] 2022. Calcium 8.3(L) 8.5 - 10.3 mg/dL [facility] Bilirubin, total 0.7 0.1 - 1.2 mg/dL [facility] Protein, pl 5.9(L) 6.5 - 8.5 g/dL [facility] Albumin 3.0(L) 3.5 - 5.0 g/dL [facility] Alk phos 77 40 - 130 Units/L [facility] ALT 18 7 - 55 Units/L [facility] AST 24 10 - 50 Units/L [facility] Blood 02/25/2025 10:0 1 AM CDT 02/25/2025 10:23 AM CDT us Savannah Valenzuela MD PhD LAB BLOOD ORDERABLES Final Resu lt [facility] One [facility] Department [place] [address] * ECG 12-LEAD (02/25/2025 9:57 AM CDT) Narrative [facility] - 02/25/2025 9:57 AM CDT [...] is within normal limits. Dictated by: Yolande [place], M.D. The radiology attending physician has personally [...] Meadows MD LAB BLOOD ORDERABLES Final Result [facility] One [facility] Department [place] [address] * (ABNORMAL) CBC without differential (02/18/2025 6:56 PM CDT) WBC 14.61(H) 3.80 - 9.90 K/cumm Hgb 9.5(L) 13.0 - 17.5 g/dL [facility] Hct 30.1(L) 38.9 - 50.3 % [facility] Plt 207 150 - 400 K/cumm [facility] MPV 11.0 9.1 - 12.3 fL [facility] RBC 3.38(L) 4.30 - 5.80 M/cumm [facility] MCV 89.1 81.3 - 96.4 fL [facility] MCH 28.1 27.1 - 33.3 pg [facility] MCHC 31.6(L) 32.3 - 35.7 g/dL [facility] RDW CV 14.6 11.1 - 14.9 % [facility] RDW SD 46.8 35.7 - 48.1 fL [facility] NRBC abs 0.00 0.00 - 0.01 K/cumm [facility] Blood 02/18/2025 6:56 PM CDT 02/18/2025 7:28 PM CDT Alena Meadows MD LAB BLOOD ORDERABLES Final Result Performing Organization Address City/[facility]/ZIP Co de Phone Number [facility] Department [place] [address] * Magnesium (02/18/2025 6:56 PM CDT) [facility] Magnesium 2.0 1.4 - 2.5 mg/dL Blood 02/18/2025 6:56 PM CDT 02/18/2025 7:27 PM CDT Alena Meadows MD LAB BLOOD ORDERABLES Final Result [facility] Department [place] [address] * (ABNORMAL) Comprehensive metabolic panel (02/18/2025 6:56 PM CDT) [facility] Sodium 138 135 - 145 mmol/L Potassium, pl 3.5 3.3 - 4.9 mmol/L [facility] Chloride 100 97 - 110 mmol/L [facility] CO2 30 22 - 32 mmol/L [facility] Anion gap 8 2 - 15 mmol/L [facility] BUN 22 6 - 25 mg/dL [facility] Creatinine 0.94 0.80 - 1.30 mg/dL [facility] Glucose 131 70 - 199 mg/dL [facility] Comment: Interpretive Data Fasting glucose >/= 126 [...] 2022. Calcium 8.2(L) 8.5 - 10.3 mg/dL [facility] Bilirubin, total 0.4 0.1 - 1.2 mg/dL [facility] Protein, pl 5.9(L) 6.5 - 8.5 g/dL [facility] Albumin 2.9(L) 3.5 - 5.0 g/dL [facility] Alk phos 93 40 - 130 Units/L [facility] ALT 16 7 - 55 Units/L [facility] AST 17 10 - 50 Units/L [facility] Blood 02/18/2025 6:56 PM CDT 02/18/2025 7:27 PM CDT Alena Meadows MD LAB BLOOD ORDERABLES Final Result [facility] Department [place] [address] * Sepsis Lactate w/ Reflex (02/17/2025 4:32 PM CDT) Sepsis Lactate 0.9 0.7 - 2.0 mmol/L Blood 02/17/2025 4:32 PM CDT 02/17/2025 4:42 PM CDT Juanita Rogers MD LAB BLOOD ORDERABLES Final Result Performing Organization Address City/[facility] Co de Phone Number [facility] [place] [address] * eGFR (02/17/2025 4:32 PM CDT) eGFR [...] BLOOD ORDERABLES Final Result Performing Organization Address City/[facility] Co de Phone Number [facility] [place] [address] * (ABNORMAL) Differential, auto (02/17/2025 4:32 PM CDT) Pathologist [facility] Neutrophil abs 12.39(H) 1.50 - 6.50 K/cumm Imm gran abs 0.08 0.00 - 0.10 K/cumm [facility] Lymphocyte abs 0.59(L) 0.80 - 3.30 K/cumm [facility] Monocyte abs 1.38(H) 0.20 - 0.80 K/cumm [facility] Eosinophil abs 0.06 0.00 - 0.50 K/cumm [facility] Basophil abs 0.02 0.00 - 0.10 K/cumm [facility] Neutrophil pct 85.3 % [facility] Comment: Interpretive Data Percent cell count reference ranges are not reported, since discordance with absolute values may lead to misinterpretation of CBC data. Current Interpretive Data was last revised on 2017. Imm gran pct 0.6 % [facility] Comment: Interpretive Data Percent cell count reference ranges are not reported, since discordance with absolute values may lead to misinterpretation of CBC data. Current Interpretive Data was last revised on 2017. Lymphocyte pct 4.1 % [facility] Comment: Interpretive Data Percent cell count reference ranges are not reported, since discordance with absolute values may lead to misinterpretation of CBC data. Current Interpretive Data was last revised on 2017. Monocyte pct 9.5 % [facility] Comment: Interpretive Data Percent cell count reference ranges are not reported, since discordance with absolute values may lead to misinterpretation of CBC data. Current Interpretive Data was last revised on 2017. Eosinophil pct 0.4 % [facility] Comment: Interpretive Data Percent cell count reference ranges are not reported, since discordance with absolute values may lead to misinterpretation of CBC data. Current Interpretive Data was last revised on 2017. Basophil pct 0.1 % [facility] Comment: Interpretive Data Percent cell count reference ranges are not reported, since discordance with absolute values may lead to misinterpretation of CBC data. Current Interpretive Data was last revised on 2017. Blood 02/17/2025 4:32 PM CDT 02/17/2025 4:44 PM CDT us Juanita Rogers MD LAB BLOOD ORDERABLES Final Result [facility] Department [place] [address] * (ABNORMAL) CBC with auto differential (02/17/2025 4:32 PM CDT) WBC 14.66(H) 3.80 - 9.90 K/cumm Hgb 9.8(L) 13.0 - 17.5 g/dL [facility] Hct 30.9(L) 38.9 - 50.3 % [facility] Plt 177 150 - 400 K/cumm [facility] MPV 11.0 9.1 - 12.3 fL [facility] RBC 3.44(L) 4.30 - 5.80 M/cumm [facility] MCV 89.8 81.3 - 96.4 fL [facility] MCH 28.5 27.1 - 33.3 pg [facility] MCHC 31.7(L) 32.3 - 35.7 g/dL [facility] RDW CV 14.6 11.1 - 14.9 % [facility] RDW SD 48.5(H) 35.7 - 48.1 fL [facility] NRBC abs 0.00 0.00 - 0.01 K/cumm [facility] Blood 02/17/2025 4:32 PM CDT 02/17/2025 4:44 PM CDT Juanita Rogers MD LAB BLOOD ORDERABLES Final Result [facility] Department [place] [address] * Blood culture Blood Peripheral (02/17/2025 4:32 PM CDT) Pathologist [facility] Report Final Report: No growth Blood (Peripheral) 02/17/2025 4:32 PM CDT 02/17/2025 4:48 PM CDT Narrative [facility] - 02/22/2025 7:00 AM CDT Received two [...] performance characteristics have been verified by the [facility]. For questions about this culture, contact the Microbiology Laboratory at [phone]. Interpretive data was last revised on 24. us Juanita Rogers MD LAB MICROBIOLOGY - GENERAL ORDERABLES Final Result [facility] Department [place] [address] * Blood culture Blood Peripheral (02/17/2025 4:32 PM CDT) Report Final Report: No growth Blood (Peripheral) 02/17/2025 4:32 PM CDT 02/17/2025 4:47 PM CDT [facility] - 02/22/2025 7:00 AM CDT Received [...] performance characteristics have been verified by the [facility]. For questions about this culture, contact the Microbiology Laboratory at [phone]. Interpretive data was last revised on 24. us Juanita Rogers MD LAB MICROBIOLOGY - GENERAL ORDERABLES Final Result [facility] Department [place] [address] * (ABNORMAL) Comprehensive metabolic panel (02/17/2025 4:32 PM CDT) Sodium 144 135 - 145 mmol/L Potassium, pl 3.3 3.3 - 4.9 mmol/L [facility] Chloride 104 97 - 110 mmol/L [facility] CO2 28 22 - 32 mmol/L [facility] Anion gap 12 2 - 15 mmol/L [facility] BUN 19 6 - 25 mg/dL [facility] Creatinine 1.05 0.80 - 1.30 mg/dL [facility] Glucose 98 70 - 199 mg/dL [facility] Comment: Interpretive Data Fasting glucose >/= 126 [...] 2022. Calcium 8.4(L) 8.5 - 10.3 mg/dL [facility] Bilirubin, total 0.5 0.1 - 1.2 mg/dL [facility] Protein, pl 6.4(L) 6.5 - 8.5 g/dL [facility] Albumin 3.1(L) 3.5 - 5.0 g/dL [facility] Alk phos 87 40 - 130 Units/L [facility] ALT 16 7 - 55 Units/L [facility] AST 18 10 - 50 Units/L [facility] Blood 02/17/2025 4:32 PM CDT 02/17/2025 4:43 PM CDT us Juanita Rogers MD LAB BLOOD ORDERABLES Final Result [facility] Department [place] [address] * (ABNORMAL) Urinalysis reflex to microscopic and culture Urine (02/17/2025 3:48 PM CDT) Color, ur Straw Yellow Clarity, ur Clear Clear [facility] Specific gravity, ur 1.015 1.003 - 1.030 [facility] pH, urine 6.0 [facility] Comment: Interpretive Data U rine pH is affected by diet, medications, systemic acid-base disturbances, and renal tubular function. pH may affect urinary stone formation. For example, urine pH below 6.0 may help reduce the tendency for calcium phosphate stones and pH greater than 6.0 may reduce the tendency for uric acid stone formation. Source: [facility] Current Interpretive Data was last revised on 2017 Protein, ur ql Trace Negative [facility] Glucose, ur ql Negative Negative [facility] Ketones, ur Trace Negative [facility] Bilirubin, ur Negative Negative [facility] Blood, ur Negative Negative [facility] Urobilinogen, ur <2.0 <2.0 mg/dL [facility] Nitrite, ur Negative Negative [facility] Leukocyte esterase, ur Trace(A) Negative [facility] UA reflex comment Reflex to microscopic UA will be performed. [facility] Urine 02/17/2025 3:48 PM CDT 02/17/2025 4:42 PM CDT Result [facility] Jean Marie Reid MD LAB MICROBIOLOGY - GENE RAL ORDERABLES Final Result Performing Organization Address City/[facility]/ZIP Co de Phone Number [facility] [place] [address] * Urinalysis, microscopic only (02/17/2025 3:48 PM CDT) WBC, ur 0-5 0 - 5 /HPF RBC, ur 0-2 0 - 2 /HPF [facility] Epithelial cells, squamous, ur 1-5 0 - 5 /HPF [facility] Urine 02/17/2025 3:48 PM CDT 02/17/2025 4:42 PM CDT Result [facility] Jean Marie Reid MD LAB URINE ORDERABLES Fi nal Result Performing Organization Address [facility] Co de Phone Number [facility] [place] [address] * Urine culture Urine, suprapubic catheter (02/17/2025 3:48 PM CDT) Report Final Report: Less than 100,000 colonies/mL (clinically insignificant growth based on current clinical standards) Organism (CLINICALLY INSIGNIFICANT GROWTH [facility] Urine, suprapubic catheter 02/17/2025 3:48 PM CDT 02/17/2025 4:40 PM CDT Narrative [facility] - 02/18/2025 6:14 PM CDT Specimen received in a sterile container. Indications for Culture:->Recent positive UA Testing performed by [facility] ([phone]) Jean Marie Reid MD LAB MICROBIOLOGY - GENE RAL ORDERABLES Final Result Performing Organization Address City/[facility] Co de Phone Number [facility] [place] [address] * COLONOSCOPY (01/01/2020 8:32 AM CDT) Anatomical Region Laterality Modality Other Narrative Procedure Note Madi Melendez MD - 01/01/2020 8:32 AM CDT ENDOSCOPY LAB Patient Name: Jerome Askew Procedure Date: 01/01/2020 8:32 AM Admit Type: Outpatient Room: [facility] Date of : 1950 Instrument Name: [id number] Gender: Male Note Status: Finalized Procedure: Colonoscopy Indications: Abdominal pain in the left lower quadrant,constipation, date of last scope unknown, better with [id number] Comorbidities spastic paraplegia Providers: Madi Melendez M.D. [...] 5 years for surveillance given polyp discovery.Continue [facility] 72mcgs. 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 03/15/2025 7:55 AM POLST ADVANCE DIRECTIVE 02/25/2025 11:32 AM POLS T ADVANCE DIRECTIVE 02/22/2025 11:19 AM POLS T ADVANCE DIRECTIVE 02/11/2021 10:49 AM DNR ADVANCE DIRECTIVE 12/27/2019 8:11 AM DNR ADVANCE DIRECTIVE 06/15/2013 12:00 AM POW ER OF PROTEIN SPECIALIST FINANCIAL/MEDICAL * Full Code (Latest Code Status [...] 7:12 PM 04/26/2024 8:33 PM Care Teams Completion Manager Relationship Specialty Start Date End Date Shant Loaiza MD [address] [facility] [address] PCP - General Internal Medicine 04/04/25 Derick Madsen MD [address] [facility] [address] [address] Consulting Physician Infectious Diseases 05/08/25
--- OUTSIDE RECORDS SUMMARY | 2025-05-16 13:45 | XMS_ITS | Encounter Summary ---
Author Organization [employer] Address [address] [place] [address] Care Team Providers Care Pet Groomer Name Role Phone Unavailable Primary Care Provider Unavailabl e Encounter Details Date Type Department Care Team (Latest Contact Info) Description 01/13/2006 Inpatient Historical HIS [place] [address] [place] [address] Other Specified Rehabilitation Procedure (Primary Dx) Social History Tobacco Use Types Packs/Day Years Used Date Smoking Tobacco: Never Assessed Sex and Gender Information Value Date Recorded Sex Assigned at Not on file Legal Sex Male 3:46 AM [employer] Gender Identity Not on file Sexual Orientation [...] Final Result Performing Organization Address [facility] Phone Number INTERFACE SYSTEM Refer [...] Re sult Performing Organization Address [facility] Phone Number INTERFACE SYSTEM Refer [...] fL INTERFACE SYSTEM 03/14/2006 4:37 AM [facility] Final Re sult Performing Organization Address [facility] Phone Number INTERFACE SYSTEM Refer to clinic/hospital department * MAGNESIUM LEVEL (03/14/2006 4:37 AM CDT) MAGNESIUM 2.0 1.5 - 2.5 mg/dL INTERFACE SYSTEM 03/14/2006 4:37 AM CDT Rita Esqueda MD CHEMISTRY ORDERABLES Final Res ult Performing Organization Address [facility] Phone Number INTERFACE SYSTEM Refer [...] mmol/L INTERFACE SYSTEM 03/14/2006 4:37 AM [facility] Final Res ult Performing Organization Address [facility] Phone Number INTERFACE SYSTEM Refer to clinic/hospital department * (ABNORMAL) C-REACTIVE PROTEIN (03/14/2006 4:37 AM CDT) CRP 4.1(H) 0.0 - 0.8 mg/dL INTERFACE SYSTEM 03/14/2006 4:37 AM CDT [facility] CHEMISTRY ORDERABLES Final Res ult Performing Organization Address [facility] Phone Number INTERFACE SYSTEM Refer to clinic/hospital department * VANCOMYCIN LEVEL TROUGH (03/13/2006 1:02 PM CDT) VANCOMYCIN, TROUGH 8.7 5.0 - 15.0 ug/mL INTERFACE SYSTEM Comment: Vancomycin Trough Toxic Level= >15.0 ug/mL 03/13/2006 1:02 PM CDT [facility]LES Final Res ult Performing Organization Address [facility] Phone Number INTERFACE SYSTEM Refer [...] R esult Performing Organization Address [facility] Phone Number INTERFACE SYSTEM Refer to clinic/hospital department * C-REACTIVE PROTEIN, CSF (03/12/2006 3:10 PM CDT) CRP, CSF 0.15 mg/dL INTERFACE SYSTEM Comment: Note: New methodology using CSF CRP (highly sensitive) assay is effective 12/11/03. No reference range has been established for CSF CRP. 03/12/2006 3:10 PM CDT Alexa Dillon MD BODY FLUIDS AND STOOLS Final Result Performing Organization Address [facility] Phone Number INTERFACE SYSTEM Refer [...] AND STOOLS Final Result Performing Organization Address [facility] Phone Number INTERFACE SYSTEM Refer to clinic/hospital department * (ABNORMAL) TOTAL PROTEIN, CSF (03/12/2006 3:10 PM CDT) PROTEIN, CSF 365(H) 15 - 45 mg/dL INTERFACE SYSTEM Comment: New CSF Protein Quantitative Methodology - Note New Reference Range. bloody sample 03/12/2006 3:10 PM CDT Aman Gottlieb DO BODY FLUIDS AND STOOLS Final Result Performing Organization Address [facility] Phone Number INTERFACE SYSTEM Refer [...] PM and read back verified. RBC, CSF [id number](H) <=0 /uL INTERFACE SYSTEM 03/12/2006 3:10 PM CDT us Aman Gottlieb DO BODY FLUIDS AND STOOLS Final Result Performing Organization Address [facility]/New [...] Final Result Performing Organization Address [facility]/New [...] Final Result Performing Organization Address [facility] Phone Number INTERFACE SYSTEM Refer [...] R esult Performing Organization Address [facility]/New [...] Address City/[facility] [place] Phone Number INTERFACE SYSTEM Refer to clinic/hospital department * (ABNORMAL) C-REACTIVE PROTEIN (03/11/2006 4:40 AM CDT) CRP 6.5(H) 0.0 - 0.8 mg/dL INTERFACE SYSTEM 03/11/2006 4:40 AM CDT Sushil Arroyo MD CHEMISTRY ORDERABLES Final R [facility] Performing Organization Address [facility] Phone Number INTERFACE SYSTEM Refer [...] Sushil Arroyo MD CHEMISTRY ORDERABLES [facility] Per[facility] Organization Address [facility] Phone Number INTERFACE SYSTEM Refer [...] patients with mechanical heart valves or post CO. Pediatric (12 years and under): 1.5 - [...] Final Result Performing Organization Address [facility] Phone Number INTERFACE SYSTEM Refer [...] Resul t Performing Organization Address [facility]/New [...] patients with mechanical heart valves or post CO. Pediatric (12 years and under): 1.5 - [...] Final Result Performing Organization Address [facility]/New [...] patients with mechanical heart valves or post CO. Pediatric (12 years and under): 1.5 - [...] Res ult Performing Organization Address [facility] Phone Number INTERFACE SYSTEM Refer [...] Res ult Performing Organization Address [facility] Phone Number INTERFACE SYSTEM Refer to clinic/hospital department * (ABNORMAL) C-REACTIVE PROTEIN (03/08/2006 6:34 PM CDT) CRP 5.2(H) 0.0 - 0.8 mg/dL INTERFACE SYSTEM 03/08/2006 6:34 PM CDT us Keenan Mandujano MD CHEMISTRY ORDERABLES Final Resu lt Performing Organization Address [facility] [place] Phone Number INTERFACE SYSTEM Refer [...] Final Result Performing Organization Address [facility] Phone Number INTERFACE SYSTEM Refer [...] patients with mechanical heart valves or post CO. Pediatric (12 years and under): 1.5 - [...] Final Result Performing Organization Address [facility] Phone Number INTERFACE SYSTEM Refer [...] Resul t Performing Organization Address [facility] Phone Number INTERFACE SYSTEM Refer [...] Final Result Performing Organization Address [facility] Phone Number INTERFACE SYSTEM Refer [...] patients with mechanical heart valves or post CO. Pediatric (12 years and under): 1.5 - [...] Final Result Performing Organization Address [facility] Phone Number INTERFACE SYSTEM Refer [...] Final Result Performing Organization Address [facility] Phone Number INTERFACE SYSTEM Refer [...] Final Result Performing Organization Address [facility] Phone Number INTERFACE SYSTEM Refer [...] Final Result Performing Organization Address [facility] Phone Number INTERFACE SYSTEM Refer [...] R esult Performing Organization Address [facility]/New [...] Final Result Performing Organization Address [facility] Phone Number INTERFACE SYSTEM Refer [...] Address [place]/[facility] [place] Phone Number INTERFACE [...] INTERFACE SYSTEM 02/26/2006 12:4 4 PM CDT [facility] HEMATOLOGY ORDERABLES Final Re sult Performing Organization Address City/[facility] de Phone Number INTERFACE SYSTEM Refer to clinic/hospital department * C-REACTIVE PROTEIN (02/26/2006 12:44 PM CDT) CRP 0.2 0.0 - 0.8 mg/dL INTERFACE SYSTEM 02/26/2006 12:4 4 PM CDT [email or web address] CHEMISTRY ORDERABLES Final Res ult Performing Organization Address [facility]/New [...] Res ult Performing Organization Address [facility] Phone Number INTERFACE SYSTEM Refer [...] Resul t Performing Organization Address [facility] Phone Number INTERFACE SYSTEM Refer [...] K/uL INTERFACE SYSTEM 02/25/2006 4:36 AM CDT [facility] HEMATOLOGY ORDERABLES Final Re sult Performing Organization Address [facility]/New [...] fL INTERFACE SYSTEM 02/25/2006 4:36 AM CDT [facility] HEMATOLOGY ORDERABLES Final Re sult Performing Organization Address [facility] Phone Number INTERFACE SYSTEM Refer [...] SYSTEM 02/25/2006 4:36 AM CDT [facility] Zaid CHEMISTRY ORDERABLES Final Res ult Performing Organization Address [facility] Phone Number INTERFACE SYSTEM Refer to clinic/hospital department * C-REACTIVE PROTEIN (02/25/2006 4:36 AM CDT) CRP 0.2 0.0 - 0.8 mg/dL INTERFACE SYSTEM 02/25/2006 4:36 AM CDT [facility] CHEMISTRY ORDERABLES Final Res ult Performing Organization Address [facility] Phone Number INTERFACE SYSTEM Refer [...] Final Result Performing Organization Address [facility] Phone Number INTERFACE SYSTEM Refer [...] patients with mechanical heart valves or post CO. Pediatric (12 years and under): 1.5 - [...] patients with mechanical heart valves or post CO. Pediatric (12 years and under): 1.5 - [...] Final Result Performing Organization Address [facility] Phone Number INTERFACE SYSTEM Refer [...] patients with mechanical heart valves or post CO. Pediatric (12 years and under): 1.5 - [...] Final Result Performing Organization Address [facility] Phone Number INTERFACE SYSTEM Refer [...] Resul t Performing Organization Address [facility] Phone Number INTERFACE SYSTEM Refer [...] patients with mechanical heart valves or post CO. Pediatric (12 years and under): 1.5 - [...] Address [place]/[facility] Phone Number INTERFACE SYSTEM Refer [...] patients with mechanical heart valves or post CO. Pediatric (12 years and under): 1.5 - [...] Final Result Performing Organization Address [facility]/New [...] Resul t Performing Organization Address [facility]/New [...] patients with mechanical heart valves or post CO. Pediatric (12 years and under): 1.5 - [...] Res ult Performing Organization Address [facility] Phone Number INTERFACE SYSTEM Refer [...] patients with mechanical heart valves or post CO. Pediatric (12 years and under): 1.5 - [...] Res ult Performing Organization Address [facility] Phone Number INTERFACE SYSTEM Refer [...] patients with mechanical heart valves or post CO. Pediatric (12 years and under): 1.5 - [...] Final Result Performing Organization Address [facility]/New [...] Res ult Performing Organization Address [facility] [place] Phone Number INTERFACE [...] Address [place]/[facility] [place] Phone Number INTERFACE [...] patients with mechanical heart valves or post CO. Pediatric (12 years and under): 1.5 - [...] Address City/[facility]/ZIP Co de Phone Number INTERFACE SYSTEM Refer [...] Resul t Performing Organization Address [facility] Phone Number INTERFACE SYSTEM Refer [...] Final Result Performing Organization Address [facility] Phone Number INTERFACE SYSTEM Refer [...] Final Result Performing Organization Address [facility]/New [...] Address City/[facility]/ZIP [place] Phone Number INTERFACE SYSTEM Refer [...] patients with mechanical heart valves or post CO. Pediatric (12 years and under): 1.5 - [...] HEMATOLOGY ORDERABLES Final Result Performing Organization Address City/State/[facility] [place] Phone Number INTERFACE [...] patients with mechanical heart valves or post CO. Pediatric (12 years and under): 1.5 - [...] ORDERABLES Final Resu lt Performing Organization Address [place] [...] Res ult Performing Organization Address [facility]/New [...] Res ult Performing Organization Address [facility]/New [...] patients with mechanical heart valves or post CO. Pediatric (12 years and under): 1.5 - [...] Res ult Performing Organization Address [facility] Phone Number INTERFACE SYSTEM Refer [...] patients with mechanical heart valves or post CO. Pediatric (12 years and under): 1.5 - [...] Res t Performing Organization Address [facility] Phone Number INTERFACE SYSTEM Refer [...] patients with mechanical heart valves or post CO. Pediatric (12 years and under): 1.5 - 3.0 Although the target range in children is not well established , INR values of 1.5 - 3.0 are recommended for most patients. Higher values have been used in children with prosthetic cardiac valves and hereditary clotting disorders. (<3 days) therapeutic ranges have not been established. 01/28/2006 4:[address] [facility] Keenan Mandujano MD HEMATOLOGY ORDERABLES Final [facility] Performing Organization Address [facility] Phone Number INTERFACE SYSTEM Refer [...] patients with mechanical heart valves or post CO. Pediatric (12 years and under): 1.5 - [...] Res ult Performing Organization Address [facility] Phone Number INTERFACE SYSTEM Refer [...] patients with mechanical heart valves or post CO. Pediatric (12 years and under): 1.5 - [...] Res ult Performing Organization Address [facility] Phone Number INTERFACE SYSTEM Refer [...] patients with mechanical heart valves or post CO. Pediatric (12 years and under): 1.5 - [...] Res ult Performing Organization Address [facility] Phone Number INTERFACE SYSTEM Refer [...] patients with mechanical heart valves or post CO. Pediatric (12 years and under): 1.5 - 3.0 Although the target range in children is not well established , INR values of 1.5 - 3.0 are recommended for most patients. Higher values have been used in children with prosthetic cardiac valves and hereditary clotting disorders. (<3 days) therapeutic ranges have not been established. 01/23/2006 4:[address] [facility] Keenan Mandujano MD HEMATOLOGY ORDERABLES Final Res ult Performing Organization Address [facility] Phone Number INTERFACE SYSTEM Refer [...] patients with mechanical heart valves or post CO. Pediatric (12 years and under): 1.5 - [...] Res ult Performing Organization Address [facility] Phone Number INTERFACE SYSTEM Refer [...] Resu lt Performing Organization Address [facility] Phone Number INTERFACE SYSTEM Refer [...] patients with mechanical heart valves or post CO. Pediatric (12 years and under): 1.5 - [...] Res ult Performing Organization Address [facility] Phone Number INTERFACE SYSTEM Refer [...] patients with mechanical heart valves or post CO. Pediatric (12 years and under): 1.5 - [...] Resu lt Performing Organization Address [facility] Phone Number INTERFACE SYSTEM Refer [...] patients with mechanical heart valves or post CO. Pediatric (12 years and under): 1.5 - [...] ORDERABLES Final Resu lt Performing Organization Address [place]/[facility] [place] Phone Number INTERFACE [...] patients with mechanical heart valves or post CO. Pediatric (12 years and under): 1.5 - [...] Address [place]/[facility] [place] Phone Number INTERFACE [...] Address [place]/[facility] Co de Phone Number INTERFACE [...] ORDERABLES Final Resul t Performing Organization Address City/[facility]/ZIP Co de Phone Number INTERFACE SYSTEM Refer to clinic/hospital department documented in this encounter Visit Diagnoses Diagnosis Other specified rehabilitation procedure(V57.89)- Primary Other specified rehabilitation procedure documented in this encounter
--- OUTSIDE RECORDS SUMMARY | 2025-05-16 13:46 | XMS_ITS | Encounter Summary ---
Author Organization [facility] Address 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 Gender Identity Not on file Sexual Orientation [...] ORDERABLES Final Re sult Performing Organization Address [facility] Phone Number INTERFACE SYSTEM Refer to clinic/hospital department * C-REACTIVE PROTEIN (04/05/2006 5:15 AM CDT) Pathologist [facility] [place] CRP 0.2 0.0 - 0.8 mg/dL INTERFACE SYSTEM 04/05/2006 5:15 AM CDT [facility] CHEMISTRY ORDERABLES Final Res ult Performing Organization Address [facility] Phone Number INTERFACE SYSTEM Refer to clinic/hospital department * (ABNORMAL) VANCOMYCIN LEVEL TROUGH (03/31/2006 11:15 AM CDT) Pathologist [facility] [place] VANCOMYCIN, TROUGH 18.3(AA) 5.0 - 15.0 ug/mL INTERFACE SYSTEM Comment: Vancomycin Trough Toxic Level= >15.0 ug/mL Results called to Amy_ at 03/31/2006 12:05 PM and read back verified. 03/31/2006 11:1 5 AM CDT Sushil Arroyo MD CHEMISTRY ORDERABLES Final R esult Performing Organization Address [facility] Phone Number INTERFACE SYSTEM Refer to clinic/hospital department * (ABNORMAL) CBC WITH DIFFERENTIAL (03/29/2006 5:15 AM CDT) Pathologist [facility] [place] NEUTROPHILS 64 45 - 70 % INTERFAC [...] ORDERABLES Final Res ult Performing Organization Address [facility] Phone Number INTERFACE SYSTEM Refer to clinic/hospital [...] ORDERABLES Final Res ult Performing Organization Address [facility] Phone Number INTERFACE SYSTEM Refer to clinic/hospital department * C-REACTIVE PROTEIN (03/29/2006 5:15 AM CDT) CRP 0.3 0.0 - 0.8 mg/dL INTERFACE SYSTEM 03/29/2006 5:15 AM CDT us Keenan Mandujano MD CHEMISTRY ORDERABLES Final Resu lt Performing Organization Address [facility] Phone Number INTERFACE SYSTEM Refer to clinic/hospital [...] Resu lt Performing Organization Address [facility] Phone Number INTERFACE SYSTEM Refer to clinic/hospital [...] Re sult Performing Organization Address [facility] Phone Number INTERFACE SYSTEM Refer to clinic/hospital [...] INTERFACE SYSTEM 03/24/2006 12:1 0 PM CDT [facility] HEMATOLOGY ORDERABLES Final Re sult Performing Organization Address [facility] Phone Number INTERFACE SYSTEM Refer to clinic/hospital department * VANCOMYCIN LEVEL TROUGH (03/24/2006 12:10 PM CDT) VANCOMYCIN, TROUGH 11.3 5.0 - 15.0 ug/mL INTERFACE SYSTEM Comment: Vancomycin Trough Toxic Level= >15.0 ug/mL 03/24/2006 12:1 0 PM CDT [employer] Z[facility] CHEMISTRY ORDERABLES Final Res ult Performing Organization Address [facility] Phone Number INTERFACE SYSTEM Refer to clinic/hospital department * C-REACTIVE PROTEIN (03/24/2006 12:10 PM CDT) CRP 0.6 0.0 - 0.8 mg/dL INTERFACE SYSTEM 03/24/2006 12:1 0 PM CDT [facility] Zaid CHEMISTRY ORDERABLES Final Res ult Performing Organization Address [facility] Phone Number INTERFACE SYSTEM Refer to clinic/hospital [...] ORDERABLES Final Res ult Performing Organization Address [facility] Co de Phone Number INTERFACE [...] INTERFACE SYSTEM 03/23/2006 11:3 0 AM CDT [facility] HEMATOLOGY ORDERABLES Final Re sult Performing Organization Address [facility] de Phone Number INTERFACE SYSTEM Refer to clinic/hospital department * (ABNORMAL) CBC WITH DIFFERENTIAL (03/23/2006 11:30 AM CDT) Pathologist [facility] [place] WBC 6.1 4.0 - 9.8 K/uL INTERFACE [...] INTERFACE SYSTEM 03/23/2006 11:3 0 AM CDT [facility] Zaid HEMATOLOGY ORDERABLES Final Re sult Performing Organization Address [facility] Co de Phone Number INTERFACE SYSTEM Refer to clinic/hospital department * VANCOMYCIN LEVEL TROUGH (03/23/2006 11:30 AM CDT) VANCOMYCIN, TROUGH 6.2 5.0 - 15.0 ug/mL INTERFACE SYSTEM Comment: Vancomycin Trough Toxic Level= >15.0 ug/mL 03/23/2006 11:3 0 AM CDT [employer] CHEMISTRY ORDERABLES Final Res ult Performing Organization Address [facility] Phone Number INTERFACE SYSTEM Refer to clinic/hospital department * (ABNORMAL) C-REACTIVE PROTEIN (03/23/2006 11:30 AM CDT) CRP 1.0(H) 0.0 - 0.8 mg/dL INTERFACE SYSTEM 03/23/2006 11:3 0 AM CDT us [facility] CHEMISTRY ORDERABLES Final Res ult Performing Organization Address [facility] Phone Number INTERFACE SYSTEM Refer [...] INTERFACE SYSTEM 03/23/2006 11:3 0 AM [facility] ORDER[facility]LES Final Res ult Performing Organization Address [facility] Phone Number INTERFACE SYSTEM Refer to clinic/hospital [...] R esult Performing Organization Address [facility] Phone Number INTERFACE SYSTEM Refer to clinic/hospital [...] /HPF INTERFACE SYSTEM 03/22/2006 8:30 PM CDT [facility] URINE ORDERABLES Final Result Performing Organization Address [facility] Phone Number INTERFACE SYSTEM Refer to clinic/hospital [...] Arroyo MD CHEMISTRY ORDERABLES Final R formerly [facility] Performing Organization Address [facility] de Phone Number [...] Arroyo MD CHEMISTRY ORDERABLES Final R formerly [facility] Performing Organization Address [facility] de Phone Number [...] HEMATOLOGY ORDERABLES Final Result Performing Organization Address [facility] Phone Number INTERFACE SYSTEM Refer to clinic/hospital [...] HEMATOLOGY ORDERABLES Final Result Performing Organization Address [facility] Phone Number INTERFACE SYSTEM Refer to clinic/hospital [...] R esult Performing Organization Address [facility] Phone Number INTERFACE SYSTEM Refer to clinic/hospital [...] Resul t Performing Organization Address [facility] Phone Number INTERFACE SYSTEM Refer to clinic/hospital department documented in this encounter Visit Diagnoses Diagnosis Other specified rehabilitation procedure(V57.89)- Primary Other specified rehabilitation procedure documented in this encounter
--- OUTSIDE RECORDS SUMMARY | 2025-05-16 13:46 | XMS_ITS | Clinical Summary ---
Author Organization [facility] Administrative Offices Address [address] [place] [address] Care Team Providers Care Cake Stripper Name Role Phone Unavailable Primary Care Provider [...] daily. 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 Iron deficiency anemia, unspecified 10/26/2012 [...] Plan: Uses wheelchair at baseline. Resides at . Has baclofen pump/neurostimulator in place. 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
--- OUTSIDE RECORDS SUMMARY | 2025-05-16 13:46 | XMS_ITS | Encounter Summary ---
Author Organization [facility] Address [address] [place] [address] Care Team Providers Care Harness Cleaner Name Role Phone Unavailable Primary Care Provider Unavailabl e Encounter Details Date Type Department Care Team (Late st Contact Info) Description 01/06/2006 Outpatient Historical [facility] Trauma and General Surgery [address] [facility] [place] [address] Jayden James MD [address] [facility] [address] 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
--- OUTSIDE RECORDS SUMMARY | 2025-05-16 13:46 | XMS_ITS | Encounter Summary ---
Author Organization [facility] Address [address] [place] [address] Care Team Providers Care Teacher Of The Sight Impaired Name Role Phone Unavailable Primary Care Provider Unavailabl e Encounter Details Date Type Department Care Team (Late st Contact Info) Description 01/08/2006 Outpatient Historical [facility] Trauma and General Surgery [address] 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
--- OUTSIDE RECORDS SUMMARY | 2025-05-16 13:46 | XMS_ITS | Encounter Summary ---
Author Organization [facility] Address [address] [place] [address] Care Team Providers Care Impress Associate Name Role Phone Unavailable Primary Care Provider Unavailabl e Encounter Details Date Type Department Care Team (Late st Contact Info) Description 09/26/2019 Lab Requisition [facility] [address] [place] [address] [facility], External Provider [address] [place] [address] Unspecified abnormal findings in urine Social History Tobacco Use Types Packs/Day Years Used Date Smoking Tobacco: Never Assessed Sex and Gender Information Value Date Recorded Sex Assigned at Not on file 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 Gender Identity Not on file Sexual [...] - 145 mmol/L 09/26/2019 8:53 PM CDT [facility] POTASSIUM 5.1 3.4 - 5.1 mmol/L 09/26/2019 8:53 PM CDT [facility] CHLORIDE 105 98 - 107 mmol/L 09/26/2019 8:53 PM [facility] CO2 23 22 - 29 mmol/L 09/26/2019 8:53 PM [facility] CALCIUM 8.6 8.6 - 10.4 mg/dL 09/26/2019 8:53 PM [facility] BUN 28(H) 6 - 20 mg/dL 09/26/2019 8:53 PM [facility] CREATININE 1.07 0.67 - 1.17 mg/dL 09/26/2019 8:53 PM [facility] Comment:The GFR result is no t clinically significant on patients <18 or >70 years of age. GLUCOSE 83 74 - 99 mg/dL 09/26/2019 8:53 PM [facility] TOTAL PROTEIN 6.7 6.3 - 8.7 g/dL 09/26/2019 8:53 PM [facility] ALBUMIN 4.2 3.5 - 5.2 g/dL 09/26/2019 8:53 PM [facility] BILIRUBIN TOTAL 0.3 0.2 - 1.3 mg/dL 09/26/2019 8:53 PM [facility] ALKALINE PHOSPHATASE 99 40 - 150 U/L 09/26/2019 8:53 PM [facility] AST 18 0 - 41 U/L 09/26/2019 8:53 PM [facility] ALT 18 0 - 41 U/L 09/26/2019 8:53 PM [facility] GFR >60 mL/min/1.7 3 sq meter 09/26/2019 8:53 PM [facility] Comment: eGFR has not been validated for [...] 3 sq meter 09/26/2019 8:53 PM CDT [facility] ANION GAP 14 8 - 16 mmol/L 09/26/2019 8:53 PM CDT [facility] Blood BLOOD SPECIMEN / Unknown Collection / Unknown 09/26/2019 3:44 PM CDT 09/26/2019 8:17 PM CDT us External Provider [facility] CHEMISTRY ORDERABLES Johanne l Result [facility] CLIA# [id number] [place] [address] * (ABNORMAL) CBC WITH DIFFERENTIAL (09/26/2019 3:44 PM CDT) WBC 6.6 4.5 - 10.5 K/uL 09/26/2019 8:26 PM CDT [facility] RBC 3.80(L) 4.50 - 5.40 M/uL 09/26/2019 8:26 PM CDT [facility] HEMOGLOBIN 11.5(L) 13.6 - 16.5 g/dL 09/26/2019 8:26 PM CDT [facility] HEMATOCRIT 34.3(L) 40.0 - 48.0 % 09/26/2019 8:26 PM CDT [facility] MCV 90.2 82.0 - 99.0 fL 09/26/2019 8:26 PM CDT [facility] MCH 30.2 27.8 - 34.5 pg 09/26/2019 8:26 PM CDT [facility] MCHC 33.5 32.5 - 35.5 g/dL 09/26/2019 8:26 PM CDT [facility] RDW 15.8(H) 11.5 - 14.5 % 09/26/2019 8:26 PM CDT [facility] PLATELETS 175 160 - 420 K/uL 09/26/2019 8:26 PM CDT [facility] MPV 10.2 8.7 - 12.7 fL 09/26/2019 8:26 PM CDT [facility] NEUTROPHILS 68 45 - 70 % 09/26/2019 8:26 PM CDT [facility] LYMPHOCYTES 16 16 - 45 % 09/26/2019 8:26 PM CDT [facility] MONOCYTES 10 3 - 13 % 09/26/2019 8:26 PM CDT [facility] EOSINOPHILS 5 0 - 7 % 09/26/2019 8:26 PM CDT [facility] BASOPHILS 1 0 - 2 % 09/26/2019 8:26 PM CDT [facility] NEUTROPHIL ABSOLUTE 4.50 1.90 - 7.00 K/uL 09/26/2019 8:26 PM CDT [facility] LYMPHOCYTE ABSOLUTE 1.10 0.70 - 4.50 K/uL 09/26/2019 8:26 PM CDT [facility] MONOCYTE ABSOLUTE 0.60 0.10 - 1.30 K/uL 09/26/2019 8:26 PM CDT [facility] EOSINOPHIL ABSOLUTE 0.40 0.00 - 0.70 K/uL 09/26/2019 8:26 PM CDT [facility] BASOPHILS ABSOLUTE 0.00 0.00 - 0.20 K/uL 09/26/2019 8:26 PM CDT [facility] Blood BLOOD SPECIMEN / Unknown Collection / Unknown 09/26/2019 3:44 PM CDT 09/26/2019 8:17 PM CDT us External Provider [facility] HEMATOLOGY ORDERABLES Fin al Result [facility] CLIA# [id number] [place] [address] * (ABNORMAL) URINALYSIS WITH REFLEX MICROSCOPIC (09/26/2019 3:00 PM CDT) COLOR UA Yellow Pale to Dark Yellow 09/26/2019 8:52 PM CDT [facility] CLARITY UA Slightly Cloudy(A) Clear 09/26/2019 8:52 PM CDT [facility] SPECIFIC GRAVITY UA 1.019 1.003 - 1.035 09/26/2019 8:52 PM CDT [facility] PH UA 5.0 5.0 - 8.0 09/26/2019 8:52 PM CDT [facility] LEUKOCYTE ESTERASE UA Negative Negative 09/26/2019 8:52 PM CDT [facility] NITRITE UA Negative Negative 09/26/2019 8:52 PM CDT [facility] PROTEIN UA Negative Negative 09/26/2019 8:52 PM CDT [facility] GLUCOSE UA Negative Negative 09/26/2019 8:52 PM CDT [facility] KETONES UA Negative Negative 09/26/2019 8:52 PM CDT [facility] UROBILINOGEN UA Normal <2.0 mg/dL 0 8:52 PM CDT [facility] BILIRUBIN UA Negative Negative 09/26/2019 8:52 PM CDT [facility] BLOOD UA Negative Negative 09/26/2019 8:52 PM CDT [facility] Comment:Ascorbic acid may ca use false negative results for blood. A microscopic review was reflexed to rule out this interference. WBC UA 0-2 0 - 2 /hpf 09/26/2019 8:[facility] RBC [facility]A 0-2 0 - 2 /hpf 09/26/2019 8:52 PM CDT [facility] BACTERIA UA 1+(A) Negative /hpf 09/26/2019 8:52 PM CDT [facility] EPITHELIAL CELLS, URINE 0-5 0 - 5 /hpf 09/26/2019 8:52 PM CDT [facility] HYALINE CAST 0-2 None Seen, 0-2 /lpf 09/26/2019 8:52 PM CDT [facility] Ascorbic Acid UA Positive(A) Negative 020 8:52 PM CDT [facility] Urine URINE SPECIMEN OBTAINED BY CLEAN CATCH PROCEDURE / Unknown Collection / Unknown 09/26/2019 3:00 PM CDT 09/26/2019 8:17 PM CDT us External Provider [facility] URINE ORDERABLES Final Re sult [facility] CLIA# [id number] [place] [address] documented in this encounter Visit Diagnoses Diagnosis Unspecified abnormal findings in urine documented in this encounter
--- OUTSIDE RECORDS SUMMARY | 2025-05-16 13:46 | XMS_ITS | Encounter Summary ---
Author Organization [facility] Address [address] [place] [address] Care Team Providers Care Crime Prevention Police Officer Name Role Phone Unavailable Primary Care Provider Unavailabl e Encounter Details Date Type Department Care Team (Late st Contact Info) Description 01/10/2006 Outpatient Historical [facility] Trauma and General Surgery [address] [facility] [address] [address] [address] [place] [address] [place] [address] Social History Tobacco Use Types Packs/Day Years Used Date Smoking Tobacco: Never Assessed Sex and Gender Information Value Date Recorded Sex Assigned at Not on file 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
--- OUTSIDE RECORDS SUMMARY | 2025-05-16 13:46 | XMS_ITS | Encounter Summary ---
Author Organization [facility] Address [address] [place] [address] Care Team Providers Care Cardiovascular Disease Specialist Name Role Phone Unavailable Primary Care Provider Unavailabl e Encounter Details Date Type Department Care Team (Late st Contact Info) Description 01/11/[address] 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
--- OUTSIDE RECORDS SUMMARY | 2025-05-16 13:46 | XMS_ITS | Encounter Summary ---
Author Organization [facility] Address [address] [place] [address] Care Team Providers Care Spa Technician Name Role Phone Unavailable Primary Care Provider Unavailabl e Encounter Details Date Type Department Care Team (Late st Contact Info) Description 01/04/2006 Outpatient Historical [facility] Trauma and General Surgery [address] [facility] [address] Jayden James MD [address] 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
--- OUTSIDE RECORDS SUMMARY | 2025-05-16 13:46 | XMS_ITS | Encounter Summary ---
Author Organization [facility] Address 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
--- OUTSIDE RECORDS SUMMARY | 2025-05-16 13:46 | XMS_ITS | Encounter Summary ---
Author Organization [facility] Address [address] [place] [address] Care Team Providers Care Ambulance Assistant Name Role Phone Unavailable Primary Care Provider Unavailabl e Encounter Details Date Type Department Care Team (Late st Contact Info) Description 01/12/2006 Outpatient Historical [facility] Trauma and General Surgery 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
--- OUTSIDE RECORDS SUMMARY | 2025-05-16 13:46 | XMS_ITS | Encounter Summary ---
Author Organization [facility] Address 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 Gender Identity Not on file Sexual [...] Organization Address [facility] Phone Number INTERFACE SYSTEM Refer to [...] Organization Address [facility] Phone Number INTERFACE SYSTEM Refer to [...] ORDERABLES Final Resu lt Performing Organization Address [facility] Phone Number INTERFACE SYSTEM Refer to clinic/hospital department * (ABNORMAL) POC GLUCOSE (01/08/2006 9:26 PM CDT) GLUCOSE POC 133(H) 65 - 109 mg/dL INTERFACE SYSTEM 01/08/2006 9:26 PM CDT José Fine MD POINT OF CARE TESTING Final Result Performing Organization Address [facility] Phone Number INTERFACE SYSTEM Refer to clinic/hospital department * (ABNORMAL) POC GLUCOSE (01/08/2006 5:25 PM CDT) GLUCOSE POC 125(H) 65 - 109 mg/dL INTERFACE SYSTEM 01/08/2006 5:25 PM CDT José Fine MD POINT OF CARE TESTING Final Result Performing Organization Address [facility] Phone Number INTERFACE SYSTEM Refer to clinic/hospital department * (ABNORMAL) POC GLUCOSE (01/08/2006 11:50 AM CDT) GLUCOSE POC 122(H) 65 - 109 mg/dL INTERFACE SYSTEM 01/08/2006 11:5 0 AM CDT us José Fine MD POINT OF CARE TESTING Final Result Performing Organization Address [facility] Phone Number INTERFACE SYSTEM Refer to clinic/hospital department * (ABNORMAL) POC GLUCOSE (01/08/2006 5:35 AM CDT) GLUCOSE POC 128(H) 65 - 109 mg/dL INTERFACE SYSTEM 01/08/2006 5:35 AM CDT us José Fine MD POINT OF CARE TESTING Final Result Performing Organization Address [facility] Phone Number INTERFACE SYSTEM Refer to clinic/hospital department * (ABNORMAL) POC GLUCOSE (01/07/2006 8:48 PM CDT) GLUCOSE POC 124(H) 65 - 109 mg/dL INTERFACE SYSTEM 01/07/2006 8:48 PM CDT us José Fine MD POINT OF CARE TESTING Final Result Performing Organization Address [facility] Phone Number INTERFACE SYSTEM Refer to clinic/hospital department * (ABNORMAL) POC GLUCOSE (01/07/2006 4:51 PM CDT) GLUCOSE POC 121(H) 65 - 109 mg/dL INTERFACE SYSTEM 01/07/2006 4:51 PM CDT us José Fine MD POINT OF CARE TESTING Final Result Performing Organization Address [facility] Phone Number INTERFACE SYSTEM Refer to clinic/hospital department * (ABNORMAL) POC GLUCOSE (01/07/2006 11:16 AM CDT) GLUCOSE POC 119(H) 65 - 109 mg/dL INTERFACE SYSTEM 01/07/2006 11:1 6 AM CDT us José Fine MD POINT OF CARE TESTING Final Result Performing Organization Address [facility] de Phone Number INTERFACE SYSTEM Refer to clinic/hospital department * (ABNORMAL) POC GLUCOSE (01/07/2006 6:24 AM CDT) GLUCOSE POC 114(H) 65 - 109 mg/dL INTERFACE SYSTEM 01/07/2006 6:24 AM CDT us José Fine MD POINT OF CARE TESTING Final Result Performing Organization Address [facility] de Phone Number INTERFACE SYSTEM Refer [...] Resu lt Performing Organization Address [facility] de Phone Number INTERFACE SYSTEM Refer [...] Performing Organization Address City/[facility] de Phone Number INTERFACE SYSTEM Refer to clinic/hospital department * PHOSPHORUS (01/07/2006 5:30 AM CDT) PHOSPHORUS 3.1 2.5 - 4.5 mg/dL INTERFACE SYSTEM 01/07/2006 5:30 AM CDT Terry Cole MD CHEMISTRY ORDERABLES Final Resul t Performing Organization Address [facility] Phone Number INTERFACE SYSTEM Refer to clinic/hospital department * MAGNESIUM LEVEL (01/07/2006 5:30 AM CDT) MAGNESIUM 2.3 1.5 - 2.5 mg/dL INTERFACE SYSTEM 01/07/2006 5:30 AM CDT Terry Cole MD CHEMISTRY ORDERABLES Final Resul t Performing Organization Address [facility] Phone Number INTERFACE SYSTEM Refer to [...] Performing Organization Address City/[facility] de Phone Number INTERFACE SYSTEM Refer to clinic/hospital department * (ABNORMAL) POC GLUCOSE (01/07/2006 12:49 AM CDT) GLUCOSE POC 114(H) 65 - 109 mg/dL INTERFACE SYSTEM 01/07/2006 12:4 9 AM CDT us José Fine MD POINT OF CARE TESTING Final Result Performing Organization Address City/[facility] Co de Phone Number INTERFACE SYSTEM Refer to clinic/hospital department * (ABNORMAL) POC GLUCOSE (01/06/2006 5:40 PM CDT) COMMENT, GLU POC Notified RN INTERFACE SYSTEM GLUCOSE POC 128(H) 65 - 109 mg/dL INTERFACE SYSTEM 01/06/2006 5:40 PM CDT us José Fine MD POINT OF CARE TESTING Final Result Performing Organization Address [facility] Phone Number INTERFACE SYSTEM Refer to clinic/hospital department * (ABNORMAL) POC GLUCOSE (01/06/2006 11:43 AM CDT) COMMENT, GLU POC Notified RN INTERFACE SYSTEM GLUCOSE POC 120(H) 65 - 109 mg/dL INTERFACE SYSTEM 01/06/2006 11:4 3 AM CDT us José Fine MD POINT OF CARE TESTING Final Result Performing Organization Address [facility] de Phone Number INTERFACE SYSTEM Refer to clinic/hospital department * (ABNORMAL) POC GLUCOSE (01/06/2006 5:48 AM CDT) GLUCOSE POC 120(H) 65 - 109 mg/dL INTERFACE SYSTEM 01/06/2006 5:48 AM CDT us José Fine MD POINT OF CARE TESTING Final Result Performing Organization Address City/[facility] Co de Phone Number INTERFACE SYSTEM [...] Performing Organization Address City/[facility]/ZIP Co de Phone Number INTERFACE SYSTEM Refer [...] Resul t Performing Organization Address [facility] de Phone Number INTERFACE SYSTEM Refer [...] Performing Organization Address City/[facility]/ZIP Co de Phone Number INTERFACE SYSTEM Refer to clinic/hospital department * (ABNORMAL) POC GLUCOSE (01/06/2006 1:00 AM CDT) GLUCOSE POC 142(H) 65 - 109 mg/dL INTERFACE SYSTEM 01/06/2006 1:00 AM CDT José Fine MD POINT OF CARE TESTING Final Result Performing Organization Address [facility] Phone Number INTERFACE SYSTEM Refer to clinic/hospital department * (ABNORMAL) POC GLUCOSE (01/05/2006 5:49 PM CDT) GLUCOSE POC 137(H) 65 - 109 mg/dL INTERFACE SYSTEM 01/05/2006 5:49 PM CDT José Fine MD POINT OF CARE TESTING Final Result Performing Organization Address [facility] Phone Number INTERFACE SYSTEM Refer to clinic/hospital department * (ABNORMAL) POC GLUCOSE (01/05/2006 11:57 AM CDT) GLUCOSE POC 133(H) 65 - 109 mg/dL INTERFACE SYSTEM 01/05/2006 11:5 7 AM CDT José Fine MD POINT OF CARE TESTING Final Result Performing Organization Address [facility] Phone Number INTERFACE SYSTEM Refer to clinic/hospital department * (ABNORMAL) POC GLUCOSE (01/05/2006 5:59 AM CDT) GLUCOSE POC 142(H) 65 - 109 mg/dL INTERFACE SYSTEM 01/05/2006 5:59 AM CDT José Fine MD POINT OF CARE TESTING Final Result Performing Organization Address [facility] Phone Number INTERFACE SYSTEM Refer to [...] K/uL INTERFACE SYSTEM 01/05/2006 4:00 AM CDT [facility] Networktima NovaluxMolecularMD HEMATOLOGY ORDERABLES Final Result Performing Organization Address [facility] Phone Number INTERFACE SYSTEM Refer to [...] fL INTERFACE SYSTEM 01/05/2006 4:00 AM CDT [facility] HEMATOLOGY ORDERABLES Final Result Performing Organization Address [facility] Phone Number INTERFACE SYSTEM Refer to [...] unfractionated heparin 01/05/2006 4:00 AM CDT 3D [employer] Link To MediajessicaMolecularMD HEMATOLOGY ORDERABLES Final Result Performing Organization Address [facility] Phone Number INTERFACE SYSTEM Refer to clinic/hospital department * PHOSPHORUS (01/05/2006 4:00 AM CDT) PHOSPHORUS 2.9 2.5 - 4.5 mg/dL INTERFACE SYSTEM 01/05/2006 4:00 AM CDT Luis Eduardo Link To Mediabrandt CHEMISTRY ORDERABLES Final R esult Performing Organization Address [facility] Phone Number INTERFACE SYSTEM Refer to clinic/hospital department * MAGNESIUM LEVEL (01/05/2006 4:00 AM CDT) MAGNESIUM 2.2 1.5 - 2.5 mg/dL INTERFACE SYSTEM 01/05/2006 4:00 AM CDT 3D [employer] NovaluxamintaMolecularMD CHEMISTRY ORDERABLES Final R esult Performing Organization Address [facility] Phone Number INTERFACE SYSTEM Refer to [...] R esult Performing Organization Address [facility] Phone Number INTERFACE SYSTEM Refer to clinic/hospital department * (ABNORMAL) POC GLUCOSE (01/04/2006 11:41 PM CDT) GLUCOSE POC 140(H) 65 - 109 mg/dL INTERFACE SYSTEM 01/04/2006 11:4 1 PM CDT us José Fine MD POINT OF CARE TESTING Final Result Performing Organization Address [facility] Phone Number INTERFACE SYSTEM Refer to clinic/hospital department * (ABNORMAL) POC GLUCOSE (01/04/2006 5:43 PM CDT) GLUCOSE POC 156(H) 65 - 109 mg/dL INTERFACE SYSTEM 01/04/2006 5:43 PM CDT us José Fine MD POINT OF CARE TESTING Final Result Performing Organization Address [facility] Phone Number INTERFACE SYSTEM Refer to clinic/hospital department * (ABNORMAL) POC GLUCOSE (01/04/2006 11:37 AM CDT) GLUCOSE POC 175(H) 65 - 109 mg/dL INTERFACE SYSTEM 01/04/2006 11:3 7 AM CDT us José Fine MD POINT OF CARE TESTING Final Result Performing Organization Address [facility] Phone Number INTERFACE SYSTEM Refer to clinic/hospital department * (ABNORMAL) POC GLUCOSE (01/04/2006 6:11 AM CDT) GLUCOSE POC 183(H) 65 - 109 mg/dL INTERFACE SYSTEM 01/04/2006 6:11 AM CDT José Fine MD POINT OF CARE TESTING Final Result Performing Organization Address [facility] Phone Number INTERFACE SYSTEM Refer to [...] ORDERABLES F inal Result Performing Organization Address [facility] Phone Number INTERFACE SYSTEM Refer to [...] ORDERABLES F inal Result Performing Organization Address [facility] Phone Number INTERFACE SYSTEM Refer to clinic/hospital department * PHOSPHORUS (01/04/2006 4:20 AM CDT) PHOSPHORUS 2.5 2.5 - 4.5 mg/dL INTERFACE SYSTEM 01/04/2006 4:20 AM CDT us Rayray Wilcox MD CHEMISTRY ORDERABLES Fi nal Result Performing Organization Address [facility] Phone Number INTERFACE SYSTEM Refer to clinic/hospital department * MAGNESIUM LEVEL (01/04/2006 4:20 AM CDT) MAGNESIUM 2.0 1.5 - 2.5 mg/dL INTERFACE SYSTEM 01/04/2006 4:20 AM CDT Rayray Wilcox MD CHEMISTRY ORDERABLES Fi nal Result Performing Organization Address [facility] Phone Number INTERFACE SYSTEM Refer [...] Re sult Performing Organization Address [facility]/ZIP Co de Phone Number INTERFACE SYSTEM Refer to clinic/hospital department * (ABNORMAL) POC GLUCOSE (01/04/2006 12:25 AM CDT) GLUCOSE POC 188(H) 65 - 109 mg/dL INTERFACE SYSTEM 01/04/2006 12:2 5 AM CDT José Fine MD POINT OF CARE TESTING Final Result Performing Organization Address [facility] de Phone Number INTERFACE SYSTEM Refer to clinic/hospital department * (ABNORMAL) POC GLUCOSE (01/03/2006 5:25 PM CDT) GLUCOSE POC 177(H) 65 - 109 mg/dL INTERFACE SYSTEM 01/03/2006 5:25 PM CDT José Fine MD POINT OF CARE TESTING Final Result Performing Organization Address [facility] de Phone Number INTERFACE SYSTEM Refer to clinic/hospital department * (ABNORMAL) POC GLUCOSE (01/03/2006 11:34 AM CDT) GLUCOSE POC 148(H) 65 - 109 mg/dL INTERFACE SYSTEM 01/03/2006 11:3 4 AM CDT José Fine MD POINT OF CARE TESTING Final Result Performing Organization Address [facility] de Phone Number INTERFACE SYSTEM Refer [...] ORDERABLES F inal Result Performing Organization Address [facility] Phone Number INTERFACE SYSTEM Refer to [...] ORDERABLES F inal Result Performing Organization Address [facility] Phone Number INTERFACE SYSTEM Refer to [...] ORDERABLES F inal Result Performing Organization Address [facility] Phone Number INTERFACE SYSTEM Refer to [...] F inal Result Performing Organization Address [facility] Number INTERFACE SYSTEM Refer to clinic/hospital department * PHOSPHORUS (01/03/2006 10:46 AM CDT) PHOSPHORUS 3.3 2.5 - 4.5 mg/dL INTERFACE SYSTEM 01/03/2006 10:4 6 AM CDT Rayray Wilcox MD CHEMISTRY ORDERABLES Fi nal Result Performing Organization Address [facility] Phone Number INTERFACE SYSTEM Refer to clinic/hospital department * MAGNESIUM LEVEL (01/03/2006 10:46 AM CDT) MAGNESIUM 1.8 1.5 - 2.5 mg/dL INTERFACE SYSTEM 01/03/2006 10:4 6 AM CDT Rayray Wilcox MD CHEMISTRY ORDERABLES Fi nal Result Performing Organization Address [facility] Phone Number INTERFACE SYSTEM Refer to [...] CHEMISTRY ORDERABLES nal Result Performing Organization Address [facility] Phone Number INTERFACE SYSTEM Refer to [...] available on the [facility] Intranet at: [email or web address] Select: Drugs of Abuse ? [facility] To inquire about any potential [...] Performing Organization Address City/[facility]/ZIP Co de Phone Number INTERFACE SYSTEM Refer [...]
--- OUTSIDE RECORDS SUMMARY | 2025-05-16 13:46 | XMS_ITS | Encounter Summary ---
Author Organization [facility] Address [address] [place] [address] Care Team Providers Care Bank Sales And Service Manager Name Role Phone Unavailable Primary Care Provider Unavailabl e Encounter Details Date Type Department Care Team (Late st Contact Info) Description 01/11/2006 Outpatient Historical [facility] Trauma and General Surgery 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
--- OUTSIDE RECORDS SUMMARY | 2025-05-16 13:46 | XMS_ITS | Encounter Summary ---
Author Organization [facility] Address 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 Gender Identity Not on file Sexual Orientation Not on file documented as of this encounter Plan of Treatment Not on file documented as of this encounter Procedures Procedure Name Priority Date/Time Associated Diagnosis Comments CBC WITH DIFFERENTIAL Stat 05/13/2019 4:50 PM MOLD MACHINE OPERATOR Other fatigue BASIC METABOLIC PANEL Stat 05/13/2019 4:50 PM MOLD MACHINE 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 Other fatigue documented in this encounter Results * (ABNORMAL) CBC WITH DIFFERENTIAL (05/13/2019 4:50 PM MOLD MACHINE OPERATOR) [facility] WBC 6.1 4.5 - 10.5 K/uL 05/13/2019 9:52 PM MOLD MACHINE OPERATOR [facility] RBC 4.04(L) 4.50 - 5.40 M/uL 05/13/2019 9:52 PM MOLD MACHINE OPERATOR [facility] HEMOGLOBIN 12.1(L) 13.6 - 16.5 g/dL 05/13/2019 9:52 PM MOLD MACHINE OPERATOR [facility] HEMATOCRIT 37.1(L) 40.0 - 48.0 % 05/13/2019 9:52 PM [facility] MCV 91.7 82.0 - 99.0 fL 05/13/2019 9:52 PM [facility] MCH 30.0 27.8 - 34.5 pg 05/13/2019 9:52 PM [facility] MCHC 32.7 32.5 - 35.5 g/dL 05/13/2019 9:52 PM [facility] RDW 14.9(H) 11.5 - 14.5 % 05/13/2019 9:52 PM [facility] PLATELETS 162 160 - 420 K/uL 05/13/2019 9:52 PM [facility] [employer] [facility] MPV 9.8 8.7 - 12.7 fL 05/13/2019 9:52 PM [facility] NEUTROPHILS 70 45 - 70 % 05/13/2019 9:52 PM [facility] LYMPHOCYTES 16 16 - 45 % 05/13/2019 9:52 PM [facility] MONOCYTES 10 3 - 13 % 05/13/2019 9:52 PM [facility] EOSINOPHILS 4 0 - 7 % 05/13/2019 9:52 PM [facility] BASOPHILS 1 0 - 2 % 05/13/2019 9:52 PM [facility] [employer] [facility] NEUTROPHIL ABSOLUTE 4.20 1.90 - 7.00 K/uL 05/13/2019 9:52 PM [facility] [employer] [facility] LYMPHOCYTE ABSOLUTE 0.90 K/uL 05/13/2019 9:52 PM [facility] MONOCYTE ABSOLUTE 0.60 K/uL 05/13/2019 9:52 PM [facility] EOSINOPHIL ABSOLUTE 0.30 0.00 - 0.70 K/uL 05/13/2019 9:52 PM [facility] BASOPHILS ABSOLUTE 0.00 K/uL 05/13/2019 9:52 PM [facility] [employer] [facility] Blood BLOOD SPECIMEN / Unknown Collection / Unknown 05/13/2019 4:50 PM MOLD MACHINE OPERATOR 05/13/2019 9:42 PM MOLD MACHINE OPERATOR us External Provider [facility] HEMATOLOGY ORDERABLES Fin al Result [facility] [employer] [facility] LESTER# [id number] [place] [address] * (ABNORMAL) BASIC METABOLIC PANEL (05/13/2019 4:50 PM MOLD MACHINE OPERATOR) SODIUM 143 136 - 145 mmol/L 05/13/2019 10:11 PM [facility] [employer] [facility] POTASSIUM 4.2 3.4 - 5.1 mmol/L 05/13/2019 10:11 PM [facility] [employer] [facility] CHLORIDE 104 98 - 107 mmol/L 05/13/2019 10:11 PM [facility] CO2 27 22 - 29 mmol/L 05/13/2019 10:11 PM [facility] CALCIUM 8.5(L) 8.6 - 10.4 mg/dL 05/13/2019 10:11 PM [facility] BUN 24(H) 6 - 20 mg/dL 05/13/2019 10:11 PM [facility] CREATININE 1.09 0.70 - 1.20 mg/dL 05/13/2019 10:11 PM [facility] Comment:The GFR result is no t clinically significant on patients <18 or >70 years of age. GLUCOSE 96 74 - 99 mg/dL 05/13/2019 10:11 PM [facility] [employer] [facility] GFR >60 mL/min/1.7 3 sq meter 05/13/2019 10:11 PM [facility] [employer] [facility] Comment: eGFR has not been [...] mL/min/1.7 3 sq meter 05/13/2019 10:11 PM MOLD MACHINE OPERATOR [facility] ANION GAP 12 8 - 16 mmol/L 05/13/2019 10:11 PM MOLD MACHINE OPERATOR [facility] Blood BLOOD SPECIMEN / Unknown Collection / Unknown 05/13/2019 4:50 PM MOLD MACHINE OPERATOR 05/13/2019 9:42 PM MOLD MACHINE OPERATOR External Provider [facility] CHEMISTRY ORDERABLES Johanne l Result [facility] CLIA# [id number] [place] [address] documented in this encounter Visit Diagnoses Diagnosis Other fatigue documented in this encounter
--- NOTE | 2025-05-16 14:30 | PC.NURSE ---
Patient states he does not want to transfer to [facility] and would prefer to stay at [facility]. notified.
[2025-05-16] MEDS: oxyCODONE/ACETAMINOPHEN (*CRX) 5-325 MG TABLET 1 TABLET PO (14:57)
--- NOTE | 2025-05-16 15:33 | PC.NURSE ---
Family at bedside. Patient requesting lunch tray. MD states patient can eat.
--- NOTE | 2025-05-16 15:35 | PC.NURSE ---
RN calling dietary for meal now.
--- NOTE | 2025-05-16 16:19 | WPCEDHO ---
ED Hand Off Checklist All vitals saved:YES IV Site documented:YES All med administrations documented:YES Triage Note Triage Note pt from [facility], [place], 05/16/25 10:48 pt c/o RUE weakness. pt reports that he noticed it when he woke this AM, approx 0730. LKN would have been prior to the pt going to bed. Approx. 0900 Allergies piperacillin Allergy (Unknown, Verified 05/15/25 14:06) Unknown sulfamethoxazole (From Bactrim) Allergy (Unknown, Verified 05/15/25 14:06) Unknown tazobactam Allergy (Unknown, Verified 05/15/25 14:06) Unknown tizanidine Allergy (Unknown, Verified 05/15/25 14:06) Unknown trimethoprim (From Bactrim) Allergy (Unknown, Verified 05/15/25 14:06) Unknown venlafaxine Allergy (Unknown, Verified 05/15/25 14:06) Unknown Family History (Last Reviewed 05/15/25 @ 14:06 by Mary Ellen Cervantes MA) Mother Throat cancer Sibling Cancer Administered/Completed Medications Discontinued Medications Oxycodone/Acetaminophen (Oxycodone/Acetaminophen (*Crx) 5-325 Mg Tablet) 1 tablet PO ONCE STA Stop: 05/16/25 14:47 Last Admin: 05/16/25 14:57 Dose: 1 tablet Documented By: ALISSA Notes 05/16/25 15:35 Nurse Note by Mary Ellen Pereira RN calling dietary for meal now. Initialized on 05/16/25 15:35 - END OF NOTE 05/16/25 15:33 Nurse Note by Mary Ellen Pereira Family at bedside. Patient requesting lunch tray. MD states patient can eat. Initialized on 05/16/25 15:33 - END OF NOTE 05/16/25 14:30 (created 05/16/25 15:35) Nurse Note by Mary Ellen Pereira Patient states he does not want to transfer to [facility] and would prefer to stay at [place]. MD notified. Initialized on 05/16/25 15:35 - END OF NOTE Interventions/Assessments IV / Saline Lock, Insert Start: 05/16/25 11:03 Freq: STAT Status: Active Protocol: Document 05/16/25 11:38 [facility] (Rec: 05/16/25 11:39 [facility] [id number]) IV Assessment Peripheral Access Left Forearm IV Catheter Access Initiated IV Insertion Date 05/16/25 IV Insertion Time 11:39 Catheter Gauge 20 IV Site Assessment WNL IV Care and WNL Maintenance PICC, Single Lumen Left Forearm IV Catheter Access Initiated Before Arrival PA: Neurological Assessment Start: 05/16/25 10:48 Freq: Status: Active Protocol: Document 05/16/25 13:02 [facility] (Rec: 05/16/25 13:04 [facility] [id number]) Neurological Assessment Level of Alert Consciousness Arousable to Verbal Orientation Oriented to Person,Oriented to Place,Oriented to Time Neurological None Symptoms Behavior Cooperative Patient Able to Comprehend Comprehension Memory Description Intact Ability to Maintain Normal Balance Facial Symmetry Symmetrical Speech Pattern Clear Right Leg(s) Extremity Movement Weak Push Description Left Leg(s) Extremity Movement Weak Push Description Right Arm(s) Extremity Movement Weak Hvac Mechanic Description Additional Strength PATIENT ABLE TO NOW LIFT ARM INTO [employer]ILDING 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 Comment Left Arm(s) Extremity Movement Weak Hvac Mechanic Description All Extremities Sensation Normal Description Last Vital Signs Temperature 97.6 F 05/16/25 10:48 Pulse Rate 102 H 05/16/25 16:16 Respiratory Rate 18 05/16/25 16:16 Pulse Oximetry 98 05/16/25 12:45 Blood Pressure 135/81 05/16/25 16:15 Blood Pressure Mean 98 05/16/25 16:15 Weight 65.7 kg 05/16/25 10:48 Last Result - Abnormals Only RBC 3.13 M/mm3 (4.6-6.20) L 05/16/25 11:28 Hgb 8.3 g/dL (14.0-18.0) L 05/16/25 11:28 Hct 28.3 % (42.0-52.0) L 05/16/25 11:28 MCHC 29.3 g/dl (32-36) L 05/16/25 11:28 RDW 20.0 % (11.5-14.5) H 05/16/25 11:28 Immature Gran % (Auto) 0.6 % (0-0.5) H 05/16/25 11:28 Neut % (Auto) 77.3 % (45.5-73.1) H 05/16/25 11:28 Lymph % (Auto) 8.6 % (18.3-44.2) L 05/16/25 11:28 [place] % (Auto) 9.6 % (2.6-8.5) H 05/16/25 11:28 Lymph # (Auto) 0.77 K/mm3 (0.9-3.2) L 05/16/25 11:28 [place] # (Auto) 0.9 K/mm3 (0.1-0.6) H 05/16/25 11:28 Abs Immat Gran (auto) 0.05 K/mm3 (0.00-0.031) H 05/16/25 11:28 Absolute Neuts (auto) 7.0 K/mm3 (1.3-6.7) H 05/16/25 11:28 PT 16.7 Seconds (11.1-14.7) H 05/16/25 11:28 BUN 25 mg/dL (9-20) H 05/16/25 11:28 Glucose 113 mg/dL (65-110) H 05/16/25 11:28 POC Capillary Glucose 112 mg/dl (65-105) H 05/16/25 11:42 Calcium 8.1 mg/dL (8.4-10.2) L 05/16/25 11:28 Troponin I 0.418 ng/mL (0.000-0.034) H* 05/16/25 11:28 Albumin 3.2 g/dL (3.5-5.1) L 05/16/25 11:28 Most Recent Suicide Severity Rating Suicide Severity Rating NO RISK INDICATED 05/16/25 10:48
[2025-05-16 16:35] LABS: Troponin I 0.310 ng/mL (0.000-0.034)
[2025-05-16 16:39] LABS: Influenza A QL RT-PCR Negative (Negative); Influenza B QL RT-PCR Negative (Negative); RSV RNA, RT-PCR Negative (Negative); SARS-CoV-2 RNA PCR Negative (Negative)
--- NOTE | 2025-05-16 17:04 | WNDPHOTO ---
PHOTO ONLY - See Nursing Notes and/ or assessments for documentation.
--- NOTE | 2025-05-16 17:05 | WNDPHOTO ---
PHOTO ONLY - See Nursing Notes and/ or assessments for documentation.
--- NOTE | 2025-05-16 17:08 | WNDPHOTO ---
PHOTO ONLY - See Nursing Notes and/ or assessments for documentation.
--- NOTE | 2025-05-16 17:22 | ADMGEN ---
This patient, Tai Amado, was admitted to IMU Room 232-01. Patient/family oriented to hospital policies and general routines including ID bracelet, bed and alarms, visiting hours, pain management, procedures, bathroom and other care routines, personal items, smoking policy, room service/diet, and visiting hours. Information on how to activate the Rapid Response Team has been discussed. Patient/Family are encouraged to report perceived risks to care and to ask questions if they do not understand what they are told or what they should do.
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
[2025-05-16 18:50] LABS: Add Urine Microscopic? YES; Appearance Urine Turbid (Clear); Glucose Urine UA Negative (Negative); Leukocyte Esterase Ur Trace LEU/UL (Negative); Nitrate Urine Negative (Negative); Non Pathogenic Casts 0-2; Specific Grav Ur 1.040 (1.001-1.035)
[2025-05-16 19:28] LABS: Troponin I 0.250 ng/mL (0.000-0.034)
[2025-05-16] MEDS: SENNOSIDES 8.6 MG TABLET PO (21:31)
[2025-05-16] MEDS: PANTOPRAZOLE 40 MG TABLET PO (21:31)
[2025-05-16] MEDS: METOPROLOL TARTRATE 25 MG TABLET PO (21:31)
[2025-05-16] MEDS: MELOXICAM 7.5 MG TABLET 15 MG PO (21:32)
[2025-05-16] MEDS: BACLOFEN 10 MG TABLET PO (21:35)
[2025-05-16] MEDS: ARTIFICIAL TEARS OPHTH SOLN 15 ML BOTTLE 1 DROP EACH EYE (21:39)
[2025-05-16] MEDS: oxyCODONE HCL (*CRX) 5 MG TAB IR PO (21:44)
[2025-05-16] MEDS: CENTRAL LINE FLUSH 10 ML IV PUSH (21:45)
[2025-05-17] VITALS (11 sets, daily range): BP systolic 123–132; BP diastolic 58–69; PULSE 77–94; RESP 12–20; TEMP 36.8–37.1; O2SAT 94–98; BMI 18.3
[2025-05-17] MEDS: oxyCODONE HCL (*CRX) 5 MG TAB IR PO ×3 (03:45→16:21)
[2025-05-17 04:04] LABS: Hematocrit 25.2 % (42.0-52.0); Hemoglobin 7.4 g/dL (14.0-18.0); Immature Granulocyte Percent A 0.1 % (0-0.5); Lymphocytes Absolute Auto 0.89 K/mm3 (0.9-3.2); Mean Corpuscular HGB Conc 29.4 g/dl (32-36); Mean Corpuscular Hemoglobin 26.3 pg (26-34); Mean Corpuscular Volume 89.7 fl (80-100); Nucleated Red Blood Cells Absolute Auto 0.000 K/mm3 (0.0-0.012); Nucleated Red Blood Cells Perc 0.0 % (0.0-0.2); Platelet Count Result 270 k/mm3 (150-375); Red Blood Count 2.81 M/mm3 (4.6-6.20); White Blood Count 6.7 K/mm3 (4.5-10.0)
[2025-05-17 04:19] LABS: Anion Gap 3 mmol/L (4-12); Blood Urea Nitrogen 20 mg/dL (9-20); Calcium 7.9 mg/dL (8.4-10.2); Carbon Dioxide 29 mmol/L (22-30); Chloride 103 mmol/L (98-107); Estimated CRCL calculation 67 ml/min; Estimated Glomerular Filt Rate > 60; Glucose 83 mg/dL (65-110); Potassium 3.9 mmol/L (3.4-5.0); Sodium 135 mmol/L (137-145)
[2025-05-17 04:21] LABS: Iron 40 ug/dL (49-181)
[2025-05-17 04:30] LABS: Percent Iron Saturation 24 % (20-50)
[2025-05-17 04:58] LABS: Thyroid Stimulating Hormone Reflex 4.460 uIU/mL (0.465-4.68)
[2025-05-17 05:02] LABS: Ferritin 64.60 ng/mL (11.1-264)
[2025-05-17 05:09] LABS: Crenated RBC 1+; Hypochromasia 1+; Ovalocytes 1+; Schistocytes None Seen
[2025-05-17 05:31] LABS: Vitamin B12 752.0 pg/mL (239-931)
[2025-05-17] MEDS: BACLOFEN 10 MG TABLET PO (05:48)
[2025-05-17] MEDS: CENTRAL LINE FLUSH 10 ML IV PUSH ×2 (05:49→14:59)
[2025-05-17 06:21] LABS: Free T4 Free Thyroxine Reflex 0.89 ng/dL (0.78-2.19)
[2025-05-17] MEDS: MULTIVITAMINS /C LUTEIN (CENTRUM SILVER) TABLET *BKC 1 TAB PO (08:42)
[2025-05-17] MEDS: ASPIRIN 81 MG CHEWABLE TABLET PO (08:42)
[2025-05-17] MEDS: FOLIC ACID 1 MG TABLET PO (08:42)
[2025-05-17] MEDS: METOPROLOL TARTRATE 25 MG TABLET PO (08:42)
[2025-05-17] MEDS: ENOXAPARIN 40 MG/0.4 ML SYRINGE SUB-Q (08:42)
[2025-05-17] MEDS: PANTOPRAZOLE 40 MG TABLET PO (08:43)
[2025-05-17] MEDS: ASCORBIC ACID 500 MG TABLET PO (08:43)
[2025-05-17] MEDS: FERROUS SULFATE 325 MG TABLET PO (08:43)
[2025-05-17] MEDS: CALCIUM/VITAMIN D 500 MG/5 MCG (200 I.U.) TABLET PO (08:43)
[2025-05-17] MEDS: SENNOSIDES 8.6 MG TABLET PO (08:43)
[2025-05-17] MEDS: ARTIFICIAL TEARS OPHTH SOLN 15 ML BOTTLE 1 DROP EACH EYE (08:44)
[2025-05-17] MEDS: COLLAGENASE OINT 30 GM TUBE 1 APPLIC TOPICAL (08:44)
[2025-05-17 09:20] LABS: Total Triiodothyronine (T3) 0.56 NG/ML (0.82-1.58)
[2025-05-17 09:42] LABS: Troponin I 0.476 ng/mL (0.000-0.034)
[2025-05-17 12:48] LABS: Troponin I 0.463 ng/mL (0.000-0.034)
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
--- NOTE | 2025-05-17 15:10 | PCNEURO ---
Patient said he was in too much pain to continue the full 20 minute recording, so I ran for as long as he could take.
--- NOTE | 2025-05-17 16:02 | PC.NURSE ---
Report called to Dea at [facility] @[id number].
--- NOTE | 2025-05-17 16:41 | P.NEURO_ITS ---
Neurology EEG Report General Information Date of Study: 05/17/25 TEST eeg DIAGNOSIS Rule out seizures CONDITION OF RECORDING awake, drowsy and asleep. EEG NUMBER [id number] CLINICAL HISTORY 75 years old with right upper extremity weakness. Patient has severe spasms and pain. He did not want to continue after the tracing, but was able to handle the test for about 12minutes before having the internetworking technician. The tracing. EEG DESCRIPTION Background rhythm consists of low to medium voltage 5 to 7 hertz per 2nd theta activity admixed with low-voltage 15 to 18 hertz per 2nd beta and multiple movement artifacts also muscle artifacts. Hyperventilation not done. Photic stimulation not done. Bilateral symmetrical sleep activity is noted during sleep with symmetrical sleep spindles. Non paroxysmal. Nonfocal. Nonlateralizing. IMPRESSION Probably normal record but considering the amounts of movement artifacts and muscle artifacts clinical correlation recommended. This particular tracing cannot rule out the possibility of seizures and repeat EEG recommended at a later date if seizures are strongly suspected.
== END 2025-05-17 17:23 ==
LOC: ANHED 13:08 → ANHIMU 16:49
PROVIDERS: Physician Assistant; Student in an Organized Health Care Education/Training Program; Admitting Provider Family Medicine; Emergency Provider Emergency Medicine; PCP Internal Medicine; Visit Provider Family Medicine
DX: R29.898 Other symptoms and signs involving the musculoskeletal system (principal); R79.89 Other specified abnormal findings of blood chemistry; D50.9 Iron deficiency anemia, unspecified; G82.54 Quadriplegia, C5-C7 incomplete; G89.4 Chronic pain syndrome; N12 Tubulo-interstitial nephritis, not specified as acute or chronic; G47.30 Sleep apnea, unspecified; I10 Essential (primary) hypertension; G93.41 Metabolic encephalopathy; N31.9 Neuromuscular dysfunction of bladder, unspecified; K59.2 Neurogenic bowel, not elsewhere classified; E78.5 Hyperlipidemia, unspecified; K21.9 Gastro-esophageal reflux disease without esophagitis; Z86.718 Personal history of other venous thrombosis and embolism; F32.A Depression, unspecified; I69.312 Visuospatial deficit and spatial neglect following cerebral infarction; Z20.822 Contact with and (suspected) exposure to COVID-19; Z79.1 Long term (current) use of non-steroidal anti-inflammatories (NSAID); Z79.891 Long term (current) use of opiate analgesic; Z79.899 Other long term (current) drug therapy; Z79.82 Long term (current) use of aspirin; Z79.2 Long term (current) use of antibiotics; Z87.440 Personal history of urinary (tract) infections; Z96.82 Presence of neurostimulator; Z96.0 Presence of urogenital implants; Z97.8 Presence of other specified devices; Z90.49 Acquired absence of other specified parts of digestive tract; Z87.39 Personal history of other diseases of the musculoskeletal system and connective tissue; Z87.891 Personal history of nicotine dependence; Z80.8 Family history of malignant neoplasm of other organs or systems; Z80.0 Family history of malignant neoplasm of digestive organs
CPT/HCPCS: 36415; 70450; 70496; 70498; 71045; 80048; 80053; 81001; 82607; 82728; 82746; 82948; 83540; 83550; 84439; 84443; 84480; 84484; 85025; 85610; 85730; 87637; 93005; 95816; 96372; 99212; 99285; A9270; G0378; G0463; J1650; Q9967

== ENCOUNTER 2025-06-20 12:08 | Inpatient (IN) | payer MEDICARE, OTHER, MEDICAID, SELFPAY ==
[2025-06-20] VITALS (15 sets, daily range): BP systolic 90–164; BP diastolic 40–68; PULSE 73–101; RESP 9–20; TEMP 36.5; O2SAT 91–100
--- NOTE | ~2025-06-20 | CT_ITS ---
EXAMINATION: CT abdomen pelvis w con DATE: 06/20/2025 16:07 INDICATION: Right back pain. Suspicion for pyelonephritis. TECHNIQUE: Computed tomography (CT) of the abdomen and pelvis was performed with 100 mL Omnipaque-350 intravenous contrast. Automated exposure control and iterative reconstruction technique were employed. The dose-length product was 672.28 mGy-cm. COMPARISON: 01/14/2025 FINDINGS: Calcified pleural plaques along the bilateral lung bases with stable appearance of volume loss and region of round atelectasis in the right lower lobe. Less severe volume loss and dependent and basilar atelectasis in the left lower lobe. Likely benign 6 mm nodule at the posterior sulcus of the left lower lobe which measured [address] dated 12/13/2019. Mild cardiomegaly. Small amount of atherosclerotic coronary artery calcification. No pericardial effusion. Thoracic aorta is normal in caliber. A couple hepatic cysts the largest measuring 2.1 cm in the right hepatic lobe. Multiple gallstones the dependent aspect of the normal-appearing gallbladder. Spleen, pancreas and and bilateral adrenal glands are normal. There is an IVC filter at the level of the renal veins. Embolization coils at the head of the pancreas. There are some excreted contrast in the bilateral renal collecting systems. 6 mm low-attenuation cyst at the upper pole the left kidney. Suprapubic Martínez catheter and small amount of intraluminal gas within the partially decompressed bladder. There is bladder wall thickening with minimal stranding in the surrounding fat which could be due to cystitis either acute or chronic. There is significantly more prominent wall thickening and inflammatory stranding surrounding the stool filled rectum and distal sigmoid colon with gaseous distention of the more proximal sigmoid colon which is suspicious for constipation with fecal impaction and secondary stercoral colitis. Normal appendix. No dilated small bowel to suggest obstruction. Prostatomegaly measuring 4.5 x 4.1 cm. There are deep decubitus ulcers overlying the bilateral ischial tuberosities and the sacrum and coccyx, each with associated cortical erosions consistent with osteomyelitis at each location. There is a stimulator lead in the subcutaneous tissues overlying the posterior margin of the right sacral ala extending to a power supply in the subcutaneous tissues of the anterior right and pelvic wall. There is a pain pump in the subcutaneous tissues of the anterior left pelvic wall with catheter extending by interspinous process approach into the central canal at the level of L3-L4 and extending cephalad beyond the superior margin of the field of imaging which is at T7. IMPRESSION: 1. Suprapubic Martínez catheter within the is partially decompressed bladder which demonstrates wall thickening and mild surrounding inflammatory stranding which could be seen with cystitis. Correlate with urinalysis. 2. Prominent wall thickening at the stool-filled rectum and distal sigmoid colon with prominent surrounding from trace stranding most consistent with stercoral colitis pressure related to chronic constipation. 3. Deep decubitus ulcers with underlying osteomyelitis involving the caudal aspect of the sacrum and the left and right ischial tuberosities. 4. Cholelithiasis. 5. Chronic calcified pleural plaques along the bilateral lung bases with prominent round atelectasis in the right lower lobe. Reviewed, dictated and finalized at location A. GRADER IMPRESSION: 1. Suprapubic Martínez catheter within the is partially decompressed bladder which demonstrates wall thickening and mild surrounding inflammatory stranding which could be seen with cystitis. Correlate with urinalysis. 2. Prominent wall thickening at the stool-filled rectum and distal sigmoid colo n with prominent surrounding from trace stranding most consistent with stercora l colitis pressure related to chronic constipation. 3. Deep decubitus ulcers with underlying osteomyelitis involving the caudal asp ect of the sacrum and the left and right ischial tuberosities. 4. Cholelithiasis. 5. Chronic calcified pleural plaques along the bilateral lung bases with promin ent round atelectasis in the right lower lobe.
--- NOTE | 2025-06-20 14:36 | ED.GENADULT ---
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 osteomyelitis involving the caudal aspect of the sacrum and the left and right ischial tuberosities. 4. Cholelithiasis. 5. Chronic calcified pleural plaques along the bilateral lung bases with prominent round atelectasis in the right lower lobe. <DO Mabel Huston Last Filed: 06/21/25 15:16> ITS Impressions Abdomen/Pelvis CT 06/20/25 16:11 IMPRESSION: 1. Suprapubic Martínez catheter within the is partially decompressed bladder which demonstrates wall thickening and mild surrounding inflammatory stranding which could be seen with cystitis. Correlate with urinalysis. 2. Prominent wall thickening at the stool-filled rectum and distal sigmoid colon with prominent surrounding from trace stranding most consistent with stercoral colitis pressure related to chronic constipation. 3. Deep decubitus ulcers with underlying osteomyelitis involving the caudal aspect of the sacrum and the left and right ischial tuberosities. 4. Cholelithiasis. 5. Chronic calcified pleural plaques along the bilateral lung bases with prominent round atelectasis in the right lower lobe. <Mich Newby MD - Last Filed: 06/21/25 06:51> Critical Care Time Critical Care Time Critical Care Time: Yes <DO Mabel Huston Last Filed: 06/21/25 15:16> Indication: severe osteomyelitiscomplexity, care coordination <Masoud Gutierrez DO - Last Filed: 06/21/25 15:16> Time Type: Intermittent <Masoud Gutierrez DO - Last Filed: 06/21/25 15:16> Initial evaluation, discuss w/ involved parties, attempting to gather old records: 10 minutes <Masoud Gutierrez - Last Filed: 06/21/25 15:16> Documenting medical record: 5 minutes <Masoud Stallworthaudiejill - Last Filed: 06/21/25 15:16> Review of results (EKG's, labs, imaging): 5 minutes <Masoud Gutierrez - Last Filed: 06/21/25 15:16> Serial repeat bedside evaluation: 10 minutes <Masoud Gutierrez - Last Filed: 06/21/25 15:16> Discussing case with multiple memebers of the care team and consultants: 10 minutes <Masoud Stallworthaudiejill - Last Filed: 06/21/25 15:16> Total Critical Care Time: 40 <Masoud Stallworthaudiejill - Last Filed: 06/21/25 15:16> Discharge Plan Discharge Clinical Impression: Osteomyelitis Qualifiers: Osteomyelitis type: unspecified type Osteomyelitis location: multiple sites Qualified Code(s): M86.9 - Osteomyelitis, unspecified <Masoud Gutierrez DO - Last Filed: 06/21/25 15:16> Patient Disposition: Acute Care Hospital <Masoud Gutierrez - Last Filed: 06/21/25 15:16> Condition: Stable <Masoud Gutierrez - Last Filed: 06/21/25 15:16> Patient Language: Estonian <Masoud Matt - Last Filed: 06/21/25 15:16> Prescriptions: No Action metoprolol tartrate 25 mg tablet 25 mg PO Q12H pantoprazole [Protonix] 40 mg Tablet,Delayed Release (Dr/Ec) 40 mg PO Q12H ascorbic acid (vitamin C) 500 mg Tablet,Chewable 500 mg PO DAILY ibuprofen 400 mg Tablet 800 mg PO Q6-8H PRN (Reason: Pain) cranberry 450 mg Tablet 450 mg PO TIDWM Rx Instructions: administer with meals miconazole nitrate 2 % cream 1 applic TOPICAL PRN bisacodyl 10 mg suppository 10 mg RECTAL DAILY PRN (Reason: constipation) Rx Instructions: IF NO BM X 3DAYS senna 8.6 mg capsule 8.6 mg PO BID PRN (Reason: constipation) Rx Instructions: IF NO BM X 3 DAYS zinc oxide-petrolatum 20-51 % paste 1 applic topical DAILY PRN (Reason: skin irritation) Rx Instructions: TO REDDENED OR EXCORIATED SKIN FOR PREVENTION AND PROTECTIVE MEASURES melatonin 3 mg tablet See Rx Instructions PO HS Rx Instructions: 1 or 2 tab orally bedtime; Adults Multivitamin 18 mg iron-400 mcg-25 mcg tablet 1 tablet PO DAILY acetaminophen tablet 1,000 mg PO Q6H PRN (Reason: Pain) ferrous sulfate 325 mg (65 mg iron) Tablet 325 mg PO DAILY folic acid 1 mg PO DAILY@1200 polyethylene glycol 3350 [Miralax] 17 gram/dose Powder 17 g PO DAILY PRN (Reason: Constipation) guaifenesin [Mucinex] 600 mg Tablet Extended Release 12hr 600 mg PO Q12H PRN (Reason: Allergic Symptoms) simethicone [Gas Relief (simethicone)] 80 mg Tablet,Chewable 80 mg PO BID PRN (Reason: Indigestion) naloxone 4 mg/actuation spray,non-aerosol 1 spray INTRANASAL DIRECTED PRN (Reason: Opiate Reversal) levetiracetam 250 mg Tablet 750 mg PO Q12HR Qty: 90 0RF loperamide [Anti-Diarrheal (loperamide)] 2 mg capsule 2 mg PO PRN PRN (Reason: loose stool) levetiracetam 500 mg tablet 500 mg PO Q12H baclofen 10 mg tablet 10 mg PO Q8H PRN (Reason: muscle spasm) amlodipine 10 mg tablet 10 mg PO DAILY Artificial Tears([id number]) Drops 1 drp EACH EYE Q12H aspirin 81 mg capsule 81 mg PO DAILY calcium carbonate-vitamin D3 500 mg(1,250mg) -50 unit capsule 1 cap PO DAILY ceftriaxone 2 gram recon soln 2 g IV DAILY Patient Comments: Last dose to be on 06/07/25 Rx Instructions: Infuse 20ml (2,000mg total) IV daily for 5 minutes at 240ml/hr daptomycin 350 mg recon soln 750 mg IV Q24H Rx Instructions: Infuse 13.9 (695mg total) IV daily for 2 min @ 417ml/hr metronidazole 500 mg tablet 500 mg PO Q8H oxybutynin chloride 5 mg tablet 5 mg PO Q12H oxycodone 5 mg tablet 5 mg PO Q6H PRN (Reason: pain) sennosides [Senna Lax] 8.6 mg tablet 8.6 mg PO Q12H Santyl 250 unit/gram ointment 1 applic topical DAILY Rx Instructions: Apply to right buttock and sacrum wounds daily. Apply hydrofiber and cover with foam dressing daily. Dakin's Solution 0.25 % solution 1 applic topical Q12H Rx Instructions: Apply Dakin's moisten gauze to left buttock wound. Cover with calcium alginate and change twice a day meloxicam 15 mg tablet 15 mg PO HS Preparation H 0.25-14-74.9 % ointment 1 applic RECTAL QAM AND QHS PRN (Reason: hemorrhoids) <Masoud Gutierrez DO - Last Filed: 06/21/25 15:16> Follow-up/Referrals: YvetteShant M.D. [Primary Care Provider] <Masoud Gutierrez DO - Last Filed: 06/21/25 15:16>
[2025-06-20] MEDS: SODIUM CHLORIDE 0.9% IV 1,000 ML 999 ML IV CONT (14:50)
[2025-06-20 14:53] LABS: Hematocrit 30.4 % (42.0-52.0); Hemoglobin 9.2 g/dL (14.0-18.0); Immature Granulocyte Percent A 0.4 % (0-0.5); Lymphocytes Absolute Auto 0.78 K/mm3 (0.9-3.2); Mean Corpuscular HGB Conc 30.3 g/dl (32-36); Mean Corpuscular Hemoglobin 26.4 pg (26-34); Mean Corpuscular Volume 87.1 fl (80-100); Nucleated Red Blood Cells Absolute Auto 0.000 K/mm3 (0.0-0.012); Nucleated Red Blood Cells Perc 0.0 % (0.0-0.2); Platelet Count Result 402 k/mm3 (150-375); Red Blood Count 3.49 M/mm3 (4.6-6.20); White Blood Count 10.2 K/mm3 (4.5-10.0)
[2025-06-20] MEDS: CYCLOBENZAPRINE HCL 10 MG TABLET PO ×2 (14:53→22:56)
[2025-06-20] MEDS: ACETAMINOPHEN ELIXIR 325 MG/10.15 ML UDC 650 MG PO (14:53)
[2025-06-20] MEDS: LIDOCAINE 5% PATCH 1 PATCH TRANSDERM (14:55)
[2025-06-20 14:56] LABS: Alanine Aminotransferase 12 U/L (6-50); Albumin Level 3.1 g/dL (3.5-5.1); Alkaline Phosphatase 109 U/L (38-126); Anion Gap 6 mmol/L (4-12); Aspartate Amino Transferase 22 U/L (17-59); Bilirubin,Total 0.4 mg/dL (0.2-1.3); Blood Urea Nitrogen 30 mg/dL (9-20); Calcium 8.7 mg/dL (8.4-10.2); Carbon Dioxide 30 mmol/L (22-30); Chloride 99 mmol/L (98-107); Estimated CRCL calculation 54 ml/min; Estimated Glomerular Filt Rate > 60; Glucose 113 mg/dL (65-110); Potassium 3.5 mmol/L (3.4-5.0); Sodium 135 mmol/L (137-145); Total Protein 6.5 g/dL (6.3-8.2)
[2025-06-20 16:15] LABS: Add Urine Microscopic? YES; Appearance Urine Turbid (Clear); Budding Yeast Urine Present /hpf; Glucose Urine UA Negative (Negative); Leukocyte Esterase Ur 3+ LEU/UL (Negative); Need Manual Microscopic Reviewed; Nitrate Urine Negative (Negative); Specific Grav Ur 1.026 (1.001-1.035)
[2025-06-20] MEDS: MORPHINE SULFATE (*CRX) 4 MG/ML INJ IV PUSH ×2 (17:00→22:56)
--- OUTSIDE RECORDS SUMMARY | 2025-06-20 17:07 | XMS_ITS | Encounter Summary ---
Author Organization [facility] Address [address] [place] [address] Care Team Providers Care Daycare Worker Name Role Phone Rod Strauss MD Primary Care Provider [phone] Encounter Details Date Type Department Care Team (Late st Contact Info) Description 05/22/2025 Lab Requisition [facility] [address] [place] [address] Shant Loaiza [id number] [facility] [place] [address] Encounter for therapeutic drug level monitoring Social History Tobacco Use Types Packs/Day Years [...] medical care, and heating? 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 Answer Date of Assessment Author Yes 06/01/2024 12:21 PM BUSINESS SYSTEMS DEVELOPER Princess Ohara RN * Is person blind or have serious difficulty seeing? Answer Date of Assessment Author No 06/01/2024 12:21 PM BUSINESS SYSTEMS DEVELOPER Princess Ohara RN * Does person have serious difficulty walking/climbing stairs? Answer Date of Assessment Author Yes 06/01/2024 12:21 PM BUSINESS SYSTEMS DEVELOPER Princess Ohara RN * Does person have difficulty dressing/bathing? Answer Date of Assessment Author Yes 06/01/2024 12:21 PM BUSINESS SYSTEMS DEVELOPER Pricness Ohara RN * Does person have difficulty doing errands alone? Answer Date of Assessment Author Yes 06/01/2024 12:21 PM BUSINESS SYSTEMS DEVELOPER Princess Ohara RN documented as of this encounter Mental Status * Does person have difficulty concentrating/remembering/making decisions? Answer Entry Date Author No 06/01/2024 12:21 PM BUSINESS SYSTEMS DEVELOPER Princess Ohara RN documented in this encounter Plan of Treatment Not on file documented as of this encounter Procedures Procedure Name Priority Date/Time Associated Diagnosis Comments VANCOMYCIN LEVEL TROUGH STAT 05/22/2025 10:00 AM BUSINESS SYSTEMS DEVELOPER Encounter for therapeutic drug level monitoring documented in this encounter Results * (ABNORMAL) VANCOMYCIN LEVEL TROUGH (05/22/2025 10:00 AM BUSINESS SYSTEMS DEVELOPER) Vancomycin Trough 20.5(H) 10.0 - 20.0 ug/mL 05/22/2025 12:28 PM BUSINESS SYSTEMS DEVELOPER [facility] Blood BLOOD SPECIMEN / Unknown Venipuncture / Unknown 05/22/2025 10:00 AM BUSINESS SYSTEMS DEVELOPER 05/22/2025 11:52 AM BUSINESS SYSTEMS DEVELOPER Shant Loaiza LAB - CHEMISTRY ORDERABLES Final Result Performing Organization Address City/State/[facility] Co de Phone Number [facility] [address] [place] [address] documented in this encounter Visit Diagnoses Diagnosis Encounter for therapeutic drug level monitoring Encounter for therapeutic drug monitoring documented in this encounter Additional Health Concerns Infection Onset Date Last Indicated Resolved Time ESBL GNR 06/01/2024 06/01/2024 documented as of this encounter Care Teams Daycare Worker Relationship Specialty Start Date End Date Rod Strauss MD [address] [place] [id number] PCP - General Internal Medicine 06/15/24 documented as of this encounter
--- OUTSIDE RECORDS SUMMARY | 2025-06-20 17:07 | XMS_ITS | Clinical Summary ---
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 Co de Phone Number [address] [place] [employer] [place] [address] * (ABNORMAL) Creatine kinase (CK), total (05/05/2025 5:20 AM CDT) CK 28(L) 40 - 300 Units/L Blood 05/05/2025 5:20 AM CDT 05/05/2025 5:24 AM CDT Erik Munoz MD LAB BLOOD ORDER DIANA Final Result [facility] [address] [facility] [place] [address] * (ABNORMAL) Comprehensive metabolic panel (05/05/2025 5:20 AM CDT) Pathologist [facility] Sodium 138 135 - 145 mmol/L Potassium, pl 3.7 3.3 - 4.9 mmol/L [facility] Chloride 103 97 - 110 mmol/L [facility] CO2 28 22 - 32 mmol/L [facility] Anion gap 7 2 - 15 mmol/L [facility] BUN 19 6 - 25 mg/dL [facility] Creatinine 0.69(L) 0.80 - 1.30 mg/dL [facility] Glucose 116 70 - 199 mg/dL [facility] Comment: Interpretive Data Fasting glucose >/= [...] 2022. Calcium 8.2(L) 8.5 - 10.3 mg/dL [facility] Bilirubin, total 0.3 0.1 - 1.2 mg/dL [facility] Protein, pl 5.8(L) 6.5 - 8.5 g/dL [facility] Albumin 2.8(L) 3.5 - 5.0 g/dL [facility] Alk phos 83 40 - 130 Units/L [facility] ALT 10 7 - 55 Units/L [facility] AST 16 10 - 50 Units/L [facility] Blood 05/05/2025 5:20 AM CDT 05/05/2025 5:24 AM CDT us Derick Madsen MD LAB BLOOD ORDERABLES Final R esult Performing Organization Address City/[facility]/ZIP Co de Phone Number [address] [place] [employer] [place] [address] * (ABNORMAL) CBC without differential (05/04/2025 9:57 AM CDT) [facility] Signature WBC 8.04 3.80 - 9.90 K/cumm Hgb 7.8(L) 13.0 - 17.5 g/dL [facility] Hct 26.7(L) 38.9 - 50.3 % [facility] Plt 325 150 - 400 K/cumm [facility] MPV 9.8 9.1 - 12.[address] [facility] RBC 3.11(L) 4.30 - 5.80 M/cumm [facility] MCV 85.9 81.3 - 96.[address] [facility] MCH 25.1(L) 27.1 - 33.[address] [facility] MCHC 29.2(L) 32.3 - 35.7 g/dL [facility] RDW CV 16.6(H) 11.1 - 14.9 % [facility] RDW SD 51.3(H) 35.7 - 48.[address] [facility] NRBC abs 0.00 0.00 - 0.01 K/cumm [facility] Blood 05/04/2025 9:57 AM CDT 05/04/2025 10:01 AM CDT us Dillan Fonseca MD LAB BLOOD ORDERABLES Final Result Performing Organization Address City/[facility]/ZIP Co de Phone Number [address] [employer] [place] [address] * eGFR (05/04/2025 2:55 AM CDT) Pathologist [facility] eGFR 90 [...] MD LAB BLOOD ORDER DIANA Final Result [facility] [address] [facility] [place], [place] [id number] * (ABNORMAL) CBC without differential (05/04/2025 2:55 AM CDT) [facility] WBC 7.73 3.80 - 9.90 K/cumm Hgb 6.7(L) 13.0 - 17.5 g/dL [facility] Hct 22.5(L) 38.9 - 50.3 % [facility] Plt 241 150 - 400 K/cumm [facility] MPV 9.8 9.1 - 12.[address] [facility] RBC 2.62(L) 4.30 - 5.80 M/cumm [facility] MCV 85.9 81.3 - 96.[address] [facility] MCH 25.6(L) 27.1 - 33.[address] [facility] MCHC 29.8(L) 32.3 - 35.7 g/dL [facility] RDW CV 16.5(H) 11.1 - 14.9 % [facility] RDW SD 51.2(H) 35.7 - 48.[address] [facility] NRBC abs 0.00 0.00 - 0.01 K/cumm [facility] Blood 05/04/2025 2:55 AM CDT 05/04/2025 3:06 AM CDT Erik Munoz MD LAB BLOOD ORDER DIANA Final Result [facility] [address] [facility] [place] [address] * (ABNORMAL) Basic metabolic panel (05/04/2025 2:55 AM CDT) Sodium 138 135 - 145 mmol/L Potassium, pl 3.6 3.3 - 4.9 mmol/L [facility] Chloride 103 97 - 110 mmol/L [facility] CO2 25 22 - 32 mmol/L [facility] Anion gap 10 2 - 15 mmol/L [facility] BUN 23 6 - 25 mg/dL [facility] Creatinine 0.86 0.80 - 1.30 mg/dL [facility] Glucose 106 70 - 199 mg/dL [facility] Comment: Interpretive Data Fasting glucose >/= [...] 2022. Calcium 8.1(L) 8.5 - 10.3 mg/dL [facility] Blood 05/04/2025 2:55 AM CDT 05/04/2025 3:06 AM CDT us Erik Munoz MD LAB BLOOD ORDER DIANA Final Result [facility] [address] [facility] [place] [address] * CT Abdomen Pelvis W Contrast (05/03/2025 [...] No growth Comment:Testing performed by : [facility], [address] [facility], [place]., [address] Blood (Peripheral) 05/03/2025 3:00 PM CDT 05/03/2025 6:48 PM CDT Harris YU - 05/08/2025 7:00 AM ZONING ASSISTANT From a different site than #1. Draw [...] characteristics have been verified by the [facility]. For questions about this culture, contact the Microbiology Laboratory at [phone]. Interpretive data was last revised on 24. Mary Ellen LAZAR LAB MICROBIOLOGY - GENERAL ORDERABLES Final Result [facility] [address] [employer] [place] [employer] [place] [address] * Sepsis Lactate w/ Reflex (05/03/2025 2:41 PM CDT) [facility] Sepsis Lactate 1.2 0.7 - 2.0 mmol/L Blood 05/03/2025 2:41 PM CDT 05/03/2025 2:46 PM CDT Joseph LAZAR LAB BLOOD ORDERABLES Final R esult Performing Organization Address City/[facility]/ZIP Co de Phone Number FRANKIE[address] [employer] [place] [address] * eGFR (05/03/2025 2:41 PM CDT) [facility] eGFR 89 >=60 mL/min/1. 73 [...] LAZAR LAB BLOOD ORDERABLES Final R esult [facility] [address] [facility] [place] [address] * (ABNORMAL) Differential, auto (05/03/2025 2:41 PM CDT) Neutrophil abs 8.41(H) 1.50 - 6.50 K/cumm Imm gran abs 0.03 0.00 - 0.10 K/cumm [facility] Lymphocyte abs 0.73(L) 0.80 - 3.30 K/cumm [facility] Monocyte abs 1.18(H) 0.20 - 0.80 K/cumm [facility] Eosinophil abs 0.23 0.00 - 0.50 K/cumm [facility] Basophil abs 0.02 0.00 - 0.10 K/cumm [facility] Neutrophil pct 79.3 % [facility] Comment: Interpretive Data Percent cell count reference ranges are not reported, since discordance with absolute values may lead to misinterpretation of CBC data. Current Interpretive Data was last revised on 2017. Imm gran pct 0.3 % [facility] Comment: Interpretive Data Percent cell count reference ranges are not reported, since discordance with absolute values may lead to misinterpretation of CBC data. Current Interpretive Data was last revised on 2017. Lymphocyte pct 6.9 % [facility] Comment: Interpretive Data Percent cell count reference ranges are not reported, since discordance with absolute values may lead to misinterpretation of CBC data. Current Interpretive Data was last revised on 2017. Monocyte pct 11.1 % [facility] Comment: Interpretive Data Percent cell count reference ranges are not reported, since discordance with absolute values may lead to misinterpretation of CBC data. Current Interpretive Data was last revised on 2017. Eosinophil pct 2.2 % [facility] Comment: Interpretive Data Percent cell count reference ranges are not reported, since discordance with absolute values may lead to misinterpretation of CBC data. Current Interpretive Data was last revised on 2017. Basophil pct 0.2 % [facility] Comment: Interpretive Data Percent cell count reference ranges are not reported, since discordance with absolute values may lead to misinterpretation of CBC data. Current Interpretive Data was last revised on 2017. Blood 05/03/2025 2:41 PM CDT 05/03/2025 2:46 PM CDT Joseph LAZAR LAB BLOOD ORDERABLES Final R esult [facility] [address] [facility] [place] [address] * (ABNORMAL) CBC with auto differential (05/03/2025 2:41 PM CDT) WBC 10.60(H) 3.80 - 9.90 K/cumm Hgb 7.8(L) 13.0 - 17.5 g/dL [facility] Hct 25.9(L) 38.9 - 50.3 % [facility] Plt 309 150 - 400 K/cumm [facility] MPV 9.9 9.1 - 12.[address] [facility] RBC 2.98(L) 4.30 - 5.80 M/cumm [facility] MCV 86.9 81.3 - 96.[address] [facility] MCH 26.2(L) 27.1 - 33.[address] [facility] MCHC 30.1(L) 32.3 - 35.7 g/dL [facility] RDW CV 16.7(H) 11.1 - 14.9 % [facility] RDW SD 51.7(H) 35.7 - 48.[address] [facility] NRBC abs 0.00 0.00 - 0.01 K/cumm [facility] Blood 05/03/2025 2:41 PM CDT 05/03/2025 2:46 PM CDT Joseph LAZAR LAB BLOOD ORDERABLES Final R esult [facility] [address] [facility] [place] [address] * Blood culture Blood Peripheral (05/03/2025 2:41 PM CDT) Report Final Report: No growth Comment:Testing performed by : [facility], [address] [place]., [address] Blood (Peripheral) 05/03/2025 2:41 PM CDT 05/03/2025 6:48 PM CDT Narrative G[facility]I - 05/08/2025 7:00 AM ZONING ASSISTANT Draw Blood cultures before administration of Antibiotics [...] characteristics have been verified by the [facility]biology [facility]. For questions about this culture, contact the Microbiology Laboratory at [phone]. Interpretive data was last revised on 24. Mary Ellen LAZAR LAB MICROBIOLOGY - GENERAL ORDERABLES Final Result Performing Organization Address City/[facility]/ZIP Co de Phone Number GIGI [address] [employer] [place] [address] * (ABNORMAL) Erythrocyte sedimentation rate (05/03/2025 2:41 PM CDT) Erythrocyte sedimentation rate 48(H) 1 - 20 mm/hr Blood 05/03/2025 2:41 PM CDT 05/03/2025 2:46 PM CDT Joseph LAZAR LAB BLOOD ORDERABLES Final R esult Performing Organization Address [facility] Co de Phone Number [address] [employer] [place] [address] * (ABNORMAL) CRP (acute phase) (05/03/2025 2:41 PM CDT) Pathologist [facility] CRP 126.0(H) <=10.0 mg/L Blood 05/03/2025 2:41 PM CDT 05/03/2025 2:46 PM CDT Mary Ellen LAZAR LAB BLOOD ORDERABLES Final Result Performing Organization Address [facility] Co de Phone Number FRANKIE[address] [employer] [place] [address] * (ABNORMAL) Creatine kinase (CK), total (05/03/2025 2:41 PM CDT) Pathologist [facility] CK 26(L) 40 - 300 Units/L Blood 05/03/2025 2:41 PM CDT 05/03/2025 2:46 PM CDT Mary Ellen LAZAR LAB BLOOD ORDERABLES Final Result Performing Organization Address City/[facility]/ZIP Co de Phone Number FRANKIE[address] [employer] [place] [address] * (ABNORMAL) Comprehensive metabolic panel (05/03/2025 2:41 PM CDT) Sodium 138 135 - 145 mmol/L Potassium, pl 4.3 3.3 - 4.9 mmol/L [facility] Chloride 101 97 - 110 mmol/L [facility] CO2 27 22 - 32 mmol/L [facility] Anion gap 10 2 - 15 mmol/L [facility] BUN 26(H) 6 - 25 mg/dL [facility] Creatinine 0.88 0.80 - 1.30 mg/dL [facility] Glucose 125 70 - 199 mg/dL [facility] Comment: Interpretive Data Fasting glucose >/= [...] 2022. Calcium 8.5 8.5 - 10.3 mg/dL [facility] Bilirubin, total 0.5 0.1 - 1.2 mg/dL [facility] Protein, pl 6.4(L) 6.5 - 8.5 g/dL [facility] Albumin 3.2(L) 3.5 - 5.0 g/dL [facility] Alk phos 95 40 - 130 Units/L [facility] ALT 10 7 - 55 Units/L [facility] AST 19 10 - 50 Units/L [facility] Blood 05/03/2025 2:41 PM CDT 05/03/2025 2:46 PM CDT Joseph LAZAR LAB BLOOD ORDERABLES Final R esult [facility] [address] [facility] [place] [address] * COLONOSCOPY (01/01/2020 8:32 AM CDT) Anatomical Region Laterality Modality Other Narrative Procedure Note Madi Melendez MD - 01/01/2020 8:32 AM CDT ENDOSCOPY LAB Patient Name: Tai Amado Procedure Date: 01/01/2020 8:32 AM Admit Type: Outpatient Room: [facility] Date of : 1950 Instrument Name: [id number] Gender: Male Note Status: Finalized Procedure: Colonoscopy Indications: Abdominal pain in the left lower quadrant,constipation, date of last scope unknown, better with [id number] Comorbidities spastic paraplegia Providers: Madi Melendez M.D. [...] 02/10/2021 04/23/[id number] [place] [address] IDMT MEDICARE [facility] [facility] [place] [facility] [id number] [place] [id number] MEDICARE [id number] [place] [address] MEDICARE [facility] IDPA [id number] [place] [address] IDMT MEDICARE [facility] Advance Directives For more information, please contact: [phone] Documents on File Type Date Recorded Patient English Drawer Expl anation ADVANCE DIRECTIVE 03/15/2025 7:55 AM POLST ADVANCE DIRECTIVE 02/25/2025 11:32 AM POLS T ADVANCE DIRECTIVE 02/22/2025 11:19 AM POLS T ADVANCE DIRECTIVE 02/11/2021 10:49 AM DNR ADVANCE DIRECTIVE 12/27/2019 8:11 AM DNR ADVANCE DIRECTIVE 06/15/2013 12:00 AM POW ER OF X [facility]AY SERVICE ENGINEER FINANCIAL/MEDICAL * Full Code (Latest Code Status [...] 7:12 PM 04/26/2024 8:33 PM Care Teams Stretcher And Drier Relationship Specialty Start Date End Date Shant Loaiza MD [address] [facility] [place] [address] PCP - General Internal Medicine 04/04/25 Derick Madsen MD [address] [facility] [address] SANCHEZ [address] [place] [address] Consulting Physician Infectious Diseases 05/08/25
--- OUTSIDE RECORDS SUMMARY | 2025-06-20 17:07 | XMS_ITS | Encounter Summary ---
Author Organization [facility] Address [address] [place] [address] Care Team Providers Care Facility Manager Name Role Phone Unavailable Primary Care Provider Unavailabl e Encounter Details Date Type Department Care Team (Late st Contact Info) Description 01/12/2006 Outpatient Historical [facility] Trauma and General Surgery [address] [facility] [address] [facility] [id number] [place] [address] [place] [address] Social History Tobacco Use Types Packs/Day Years Used Date Smoking Tobacco: Never Assessed Sex and Gender Information Value Date Recorded Sex Assigned at Not on file Legal Sex Male 3:46 AM ETCHER [employer] Gender Identity Not on file Sexual Orientation Not on file documented as of this encounter Plan of Treatment Not on file documented as of this encounter Visit Diagnoses Not on filedocumented in this encounter
--- OUTSIDE RECORDS SUMMARY | 2025-06-20 17:07 | XMS_ITS | Encounter Summary ---
Author Organization [facility] Address [address] [place] [address] Care Team Providers Care Home Decorator Name Role Phone Rod Strauss MD Primary Care Provider + [phone] Encounter Details Date Type Department Care Team (Late st Contact Info) Description 03/13/2025 Lab Requisition [facility] [address] [place] [address] Unknown, Provider Social History Tobacco Use Types [...] medical care, and heating? Patient declined 05/31/2024 [facility] of Occupat ional Health - [...] any time in the past 12 m [facility], were you homeless or living in a longterm (including now)? Patient declined 05/31/2024 Sex and Gender Information Value Date Recorded Sex Assigned at Not on file Legal Sex Male 5:23 PM EHR TRAINER Gender Identity Not on file Sexual Orientation Not on file documented as of this encounter Functional Status * Is person deaf or have serious hearing difficulty? Answer Date of Assessment Author Yes 06/01/2024 12:21 PM EHR TRAINER Princess Ohara RN * Is person blind or have serious difficulty seeing? Answer Date of Assessment Author No 06/01/2024 12:21 PM EHR TRAINER Princess Ohara RN * Does person have serious difficulty walking/climbing stairs? Answer Date of Assessment Author Yes 06/01/2024 12:21 PM EHR TRAINER Princess Ohara RN * Does person have difficulty dressing/bathing? Answer Date of Assessment Author Yes 06/01/2024 12:21 PM EHR TRAINER Princess Ohara RN * Does person have difficulty doing errands alone? Answer Date of Assessment Author Yes 06/01/2024 12:21 PM EHR TRAINER Princess Ohara RN documented as of this encounter Mental Status * Does person have difficulty concentrating/remembering/making decisions? Answer Entry Date Author No 06/01/2024 12:21 PM EHR TRAINER Princess Ohara RN documented in this encounter [...] - 74 % 03/13/2025 6:26 PM CDT [facility] Lymphocyte % 1(L) 17 - 47 % 03/13/2025 6:26 PM CDT [facility] Monocyte % 7 3 - 11 % 03/13/2025 6:26 PM CDT [facility] Neutrophil Absolute 14.08(H) 1.60 - 7.50 x10E9/L 03/13/2025 6:26 PM CDT [facility] Lymphocyte Absolute 0.15(L) 1.00 - 4.40 x10E9/L 03/13/2025 6:26 PM CDT [facility] Monocyte Absolute 1.07(H) 0.15 - 1.00 x10E9/L 03/13/2025 6:26 PM CDT [facility] RBC Morphology NORMAL 03/13/2025 6:26 PM CDT [facility] Blood BLOOD SPECIMEN / Unknown 03/13/2025 4:40 PM CDT 03/13/2025 5:42 PM CDT us Provider Unknown LAB - HEMATOLOGY ORDERABLES Fin al Result [facility] [address] [place] [address] * (ABNORMAL) COMPREHENSIVE METABOLIC PANEL (03/13/2025 4:40 PM CDT) Glucose 118(H) 70 - 99 mg/dL 03/13/2025 6:07 PM CDT [facility] Sodium 135(L) 136 - 145 mmol/L 03/13/2025 6:07 PM CDT [facility] Potassium 3.6 3.5 - 5.1 mmol/L 03/13/2025 6:07 PM [facility] Chloride 98 98 - 107 mmol/L 03/13/2025 6:07 PM [facility] CO2 27 22 - 29 mmol/L 03/13/2025 6:07 PM [facility] Calcium 7.7(L) 8.4 - 10.4 mg/dL 03/13/2025 6:07 PM [facility] Anion Gap 10 6 - 16 mmol/L 03/13/2025 6:07 PM [facility] BUN 23 7 - 26 mg/dL 03/13/2025 6:07 PM [facility] Creatinine 0.74 0.72 - 1.25 mg/dL 03/13/2025 6:07 PM [facility] Alkaline Phosphatase 94 40 - 150 U/L 03/13/2025 6:07 PM [facility] ALT 31 6 - 57 U/L 03/13/2025 6:07 PM [facility] AST 39 10 - 48 U/L 03/13/2025 6:07 PM [facility] Protein Total 5.6(L) 6.4 - 8.3 gm/dL 03/13/2025 6:07 PM [facility] Albumin 2.5(L) 3.1 - 4.5 gm/dL 03/13/2025 6:07 PM [facility] Bilirubin Total 0.5 0.2 - 1.2 mg/dL 03/13/2025 6:07 PM [facility] eGFR by CKD-EPI >90 >=90 mL/min/1.7 3 m2 03/13/2025 6:07 PM [facility] Comment:Estimated Glomerular Filtration Rate (eGFR) calculated using the CKD-EPI Creatinine Equation (2020), per the National Kidney Foundation and [place] [employer] Neph[employer] recommendations. Blood BLOOD SPECIMEN / Unknown Venipuncture / Unknown 03/13/2025 4:40 PM CDT 03/13/2025 5:42 PM T us Provider Unknown LAB - CHEMISTRY ORDERABLES Johanne l Result [facility] [address] [place] [address] * (ABNORMAL) CBC WITH DIFFERENTIAL (03/13/2025 4:40 PM CDT) WBC 15.3(H) 4.0 - 10.7 x10E9/L 03/13/2025 6:26 PM CDT [facility] RBC Count 2.83(L) 4.30 - 5.80 x10E12/L 03/13/2025 6:26 PM CDT [facility] Hemoglobin 7.9(L) 13.3 - 17.5 g/dL 03/13/2025 6:26 PM CDT [facility] Hematocrit 25.5(L) 38.7 - 51.1 % 03/13/2025 6:26 PM CDT [facility] MCV 90.1 80.0 - 98.0 fL 03/13/2025 6:26 PM CDT [facility] MCH 27.9 26.7 - 33.6 pg 03/13/2025 6:26 PM CDT [facility] MCHC 31.0(L) 31.7 - 36.3 g/dL 03/13/2025 6:26 PM CDT [facility] RDW-CV 15.7(H) 11.3 - 14.8 % 03/13/2025 6:26 PM CDT [facility] Platelet Count 266 150 - 420 x10E9/L 03/13/2025 6:26 PM CDT [facility] MPV 10.8 7.8 - 11.4 fL 03/13/2025 6:26 PM CDT [facility] Blood BLOOD SPECIMEN / Unknown 03/13/2025 4:40 PM CDT 03/13/2025 5:42 PM CDT us Provider Unknown LAB - HEMATOLOGY ORDERABLES Fin al Result [facility] [address] [place] [address] documented in this encounter Visit Diagnoses Not on filedocumented in this encounter Additional Health Concerns Infection Onset Date Last Indicated Resolved Time ESBL GNR 06/01/2024 06/01/2024 documented as of this encounter Care Teams Home Decorator Relationship Specialty Start Date End Date Rod Strauss MD [address] [place] [id number] PCP - General Internal Medicine 06/15/24 documented as of this encounter
--- OUTSIDE RECORDS SUMMARY | 2025-06-20 17:07 | XMS_ITS | Encounter Summary ---
Author Organization [facility] Address [address] [place] [address] Care Team Providers Care Rotary Engraver Name Role Phone Unavailable Primary Care Provider Unavailabl e Encounter Details Date Type Department Care Team (Latest Contact Info) Description 03/15/2006 Inpatient Historical HIS PATIENT IN A BED Yenny Hauser MD NO ADDRESS ON FILE Devan Agrawal MD [address] [facility] [address] [place] [address] Hypoxemia (Primary Dx) Social History Tobacco Use Types Packs/Day Years Used Date Smoking Tobacco: Never Assessed Sex and Gender Information Value Date Recorded Sex Assigned at Not on file Legal Sex Male 3:46 AM MEDICINE ASSISTANT Gender Identity Not on file Sexual [...] R esult Performing Organization Address City/[facility] Phone Number INTERFACE SYSTEM [...] R esult Performing Organization Address City/[facility] Phone Number INTERFACE SYSTEM Refer to clinic/hospital department * MAGNESIUM LEVEL (03/19/2006 4:38 AM CDT) MAGNESIUM 1.7 1.5 - 2.5 mg/dL INTERFACE SYSTEM 03/19/2006 4:38 AM CDT Yenny Hauser MD CHEMISTRY ORDERABLES Final Re sult Performing Organization Address City/[facility] Co de Phone Number INTERFACE [...] ORDERABLES Final Re sult Performing Organization Address City/[facility] Co de Phone Number INTERFACE SYSTEM Refer to clinic/hospital department * VANCOMYCIN LEVEL TROUGH (03/18/2006 11:30 AM CDT) Pathologist [facility] VANCOMYCIN, TROUGH 11.5 5.0 - 15.0 ug/mL INTERFACE SYSTEM Comment: Vancomycin Trough Toxic Level= >15.0 ug/mL 03/18/2006 11:3 0 AM CDT Yenny Hauser MD CHEMISTRY ORDERABLES Final Re sult Performing Organization Address [facility] Co de Phone Number INTERFACE SYSTEM Refer to clinic/hospital department * (ABNORMAL) CBC WITH DIFFERENTIAL (03/18/2006 9:08 AM CDT) Pathologist [facility] NEUTROPHILS 76(H) 45 - 70 % [...] ORDERABLES Final Res ult Performing Organization Address City/[facility] de Phone Number INTERFACE [...] ORDERABLES Final Resu lt Performing Organization Address [facility] Phone Number INTERFACE SYSTEM [...] HEMATOLOGY ORDERABLES Final Result Performing Organization Address [facility] Phone Number INTERFACE SYSTEM [...] HEMATOLOGY ORDERABLES Final Result Performing Organization Address [facility] Phone Number INTERFACE SYSTEM Refer to clinic/hospital department * (ABNORMAL) C-REACTIVE PROTEIN (03/17/2006 4:45 AM CDT) CRP 2.4(H) 0.0 - 0.8 mg/dL INTERFACE SYSTEM 03/17/2006 4:45 AM CDT Historical Provider CHEMISTRY ORDERABLES Final R esult Performing Organization Address [facility] Phone Number INTERFACE SYSTEM [...] R esult Performing Organization Address City/[facility] Phone Number INTERFACE SYSTEM Refer to clinic/hospital department * (ABNORMAL) ACETONE QUALITATIVE (03/16/2006 6:30 PM CDT) ACETONE QUAL 2+ (30 mg/dL)(A) Neg (<10 mg/dL) INTERFACE SYSTEM 03/16/2006 6:30 PM CDT us Historical Provider CHEMISTRY ORDERABLES Final R esult Performing Organization Address [facility] Phone Number INTERFACE SYSTEM Refer to clinic/hospital department * LACTIC ACID (03/16/2006 6:30 PM CDT) LACTIC ACID 1.0 0.5 - 2.2 mmol/L INTERFACE SYSTEM 03/16/2006 6:30 PM CDT us Historical Provider CHEMISTRY ORDERABLES Final R esult Performing Organization Address [facility] Phone Number INTERFACE SYSTEM [...] ORDERABLES Final Resu lt Performing Organization Address [facility] Phone Number INTERFACE SYSTEM [...] HEMATOLOGY ORDERABLES Final Result Performing Organization Address City/[facility] Phone Number INTERFACE SYSTEM [...] R esult Performing Organization Address City/[facility] de Phone Number INTERFACE [...] ORDERABLES Final Res ult Performing Organization Address [facility] Phone Number INTERFACE SYSTEM [...] ORDERABLES Final Res ult Performing Organization Address [facility] de Phone Number INTERFACE [...]
--- OUTSIDE RECORDS SUMMARY | 2025-06-20 17:07 | XMS_ITS | Encounter Summary ---
Author Organization [facility] Address [address] [place] [address] Care Team Providers Care Farmworker Livestock Name Role Phone Unavailable Primary Care Provider Unavailabl e Encounter Details Date Type Department Care Team (Late st Contact Info) Description 03/16/2006 Outpatient Historical [facility] Adult Critical Care [address] [address] Venkatesh Yang MD Social History Tobacco Use Types Packs/Day Years Used Date Smoking Tobacco: Never Assessed Sex and Gender Information Value Date Recorded Sex Assigned at Not on file Legal Sex Male 3:46 AM BUDGET OFFICER Gender Identity Not on file Sexual Orientation Not on file documented as of this encounter Plan of Treatment Not on file documented as of this encounter Visit Diagnoses Not on filedocumented in this encounter
--- OUTSIDE RECORDS SUMMARY | 2025-06-20 17:07 | XMS_ITS | Encounter Summary ---
Author Organization [facility] Address [address] [place] [address] Care Team Providers Care Bilingual Inside Sales Representative Name Role Phone Unavailable Primary Care Provider Unavailabl e Encounter Details Date Type Department Care Team (Late st Contact Info) Description 01/09/2006 Outpatient Historical [facility] Trauma and General Surgery [address] [facility] [address] [phone] [place] [address] [place] [address] Social History Tobacco Use Types Packs/Day Years Used Date Smoking Tobacco: Never Assessed Sex and Gender Information Value Date Recorded Sex Assigned at Not on file Legal Sex Male 3:46 AM TANKAGE GRINDER Gender Identity Not on file Sexual Orientation Not on file documented as of this encounter Plan of Treatment Not on file documented as of this encounter Visit Diagnoses Not on filedocumented in this encounter
--- OUTSIDE RECORDS SUMMARY | 2025-06-20 17:07 | XMS_ITS | Encounter Summary ---
Author Organization [facility] Address [address] [place] [address] Care Team Providers Care Exchange Floor Manager Name Role Phone Unavailable Primary Care Provider Unavailabl e Encounter Details Date Type Department Care Team (Late st Contact Info) Description 03/14/2006 Outpatient Historical [facility] Adult Hospitalists [facility] [address] [place] [address] Devan Agrawal MD [address] [place] [address] Social History Tobacco Use Types Packs/Day Years Used Date Smoking Tobacco: Never Assessed Sex and Gender Information Value Date Recorded Sex Assigned at Not on file Legal Sex Male 3:46 AM CREDIT CHECKER Gender Identity Not on file Sexual Orientation Not on file documented as of this encounter Plan of Treatment Not on file documented as of this encounter Visit Diagnoses Not on filedocumented in this encounter
--- OUTSIDE RECORDS SUMMARY | 2025-06-20 17:07 | XMS_ITS | Encounter Summary ---
Author Organization [facility] Address [address] [place] [address] Care Team Providers Care Fryline Attendant Name Role Phone Unavailable Primary Care Provider Unavailabl e Encounter Details Date Type Department Care Team (Late st Contact Info) Description 01/13/2006 Outpatient Historical [facility] Blood Flow [address] [place] [address] Dillan Henry MD NO ADDRESS ON FILE Social History Tobacco Use Types Packs/Day Years Used Date Smoking Tobacco: Never Assessed Sex and Gender Information Value Date Recorded Sex Assigned at Not on file Legal Sex Male 3:46 AM FOXING CLOSER Gender Identity Not on file Sexual Orientation Not on file documented as of this encounter Plan of Treatment Not on file documented as of this encounter Visit Diagnoses Not on filedocumented in this encounter
--- OUTSIDE RECORDS SUMMARY | 2025-06-20 17:07 | XMS_ITS | Encounter Summary ---
Author Organization [facility] Address [address] [place] [address] Care Team Providers Care Stemming Machine Operator Name Role Phone Rod Strauss MD Primary Care Provider [phone] Encounter Details Date Type Department Care Team (Late st Contact Info) Description 05/24/2025 Lab Requisition [facility] [address] [place] [address] Mindy James [address] [place] [phone] Social History Tobacco Use Types Packs/Day Years [...] medical care, and heating? Patient declined 05/31/2024 [facility] of Occupat ional Health - Occupational Stress [...] any time in the past 12 m [facility], were you homeless or living in a senior care (including now)? Patient declined 05/31/2024 Sex and Gender Information Value Date Recorded Sex Assigned at Not on file Legal Sex Male 5:23 PM REFUND SPECIALIST Gender Identity Not on file Sexual Orientation Not on file documented as of this encounter Functional Status * Is person deaf or have serious hearing difficulty? Answer Date of Assessment Author Yes 06/01/2024 12:21 PM REFUND SPECIALIST Princess Ohara RN * Is person blind or have serious difficulty seeing? Answer Date of Assessment Author No 06/01/2024 12:21 PM REFUND SPECIALIST Princess Ohara RN * Does person have serious difficulty walking/climbing stairs? Answer Date of Assessment Author Yes 06/01/2024 12:21 PM REFUND SPECIALIST Princess Ohara RN * Does person have difficulty dressing/bathing? Answer Date of Assessment Author Yes 06/01/2024 12:21 PM REFUND SPECIALIST Princess Ohara RN * Does person have difficulty doing errands alone? Answer Date of Assessment Author Yes 06/01/2024 12:21 PM REFUND SPECIALIST Princess Ohara RN documented as of this encounter Mental Status * Does person have difficulty concentrating/remembering/making decisions? Answer Entry Date Author No 06/01/2024 12:21 PM REFUND SPECIALIST Princess Ohara RN documented in this encounter Plan of Treatment Not on file documented as of this encounter Procedures Procedure Name Priority Date/Time Associated Diagnosis Comments VANCOMYCIN LEVEL TROUGH STAT 05/24/2025 7:10 PM REFUND SPECIALIST documented in this encounter Results * (ABNORMAL) VANCOMYCIN LEVEL TROUGH (05/24/2025 7:10 PM REFUND SPECIALIST) Vancomycin Trough 23.1(H) 10.0 - 20.0 ug/mL 05/24/2025 7:34 PM REFUND SPECIALIST [facility] Blood BLOOD SPECIMEN / Unknown Venipuncture / Unknown 05/24/2025 7:10 PM REFUND SPECIALIST 05/24/2025 7:12 PM REFUND SPECIALIST us Mindy Pendegraft LAB - CHEMISTRY ORDERABLES Johanne l Result Performing Organization Address City/State/[facility] Co de Phone Number [facility] [address] [place] [address] documented in this encounter Visit Diagnoses Not on filedocumented in this encounter Additional Health Concerns Infection Onset Date Last Indicated Resolved Time ESBL GNR 06/01/2024 06/01/2024 documented as of this encounter Care Teams Stemming Machine Operator Relationship Specialty Start Date End Date Rod Strauss MD [address] [place] [phone] PCP - General Internal Medicine 06/15/24 documented as of this encounter
--- OUTSIDE RECORDS SUMMARY | 2025-06-20 17:07 | XMS_ITS | Encounter Summary ---
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 Patient declined 05/31/2024 [facility] of Occupat ional Health - Occupational [...] were you homeless or living in a half-way (including now)? Patient declined 05/31/2024 Sex and Gender Information Value Date Recorded Sex Assigned at Not on file Legal Sex Male 5:23 PM CANDLE MOLDER MACHINE Gender Identity Not on file Sexual Orientation Not on file documented as of this encounter Functional Status * Is person deaf or have serious hearing difficulty? Answer Date of Assessment Author Yes 06/01/2024 12:21 PM CANDLE MOLDER MACHINE Princess Ohara RN * Is person blind or have serious difficulty seeing? Answer Date of Assessment Author No 06/01/2024 12:21 PM CANDLE MOLDER MACHINE Princess Ohara RN * Does person have serious difficulty walking/climbing stairs? Answer Date of Assessment Author Yes 06/01/2024 12:21 PM CANDLE MOLDER MACHINE Princess Ohara RN * Does person have difficulty dressing/bathing? Answer Date of Assessment Author Yes 06/01/2024 12:21 PM CANDLE MOLDER MACHINE Princess Ohara RN * Does person have difficulty doing errands alone? Answer Date of Assessment Author Yes 06/01/2024 12:21 PM CANDLE MOLDER MACHINE Princess Ohara RN documented as of this encounter Mental Status * Does person have difficulty concentrating/remembering/making decisions? Answer Entry Date Author No 06/01/2024 12:21 PM CANDLE MOLDER MACHINE Princess Ohara RN documented in this encounter Plan of Treatment Not on file documented as of this encounter Procedures Procedure Name Priority Date/Time Associated Diagnosis Comments VANCOMYCIN LEVEL TROUGH STAT 05/21/2025 2:21 PM CANDLE MOLDER MACHINE Resistance to vancomycin documented in this encounter Results * (ABNORMAL) VANCOMYCIN LEVEL TROUGH (05/21/2025 2:21 PM CANDLE MOLDER MACHINE) Vancomycin Trough 28.2(HH) 10.0 - 20.0 ug/mL 05/21/2025 2:53 PM CANDLE MOLDER MACHINE [facility] Blood BLOOD SPECIMEN / Unknown Venipuncture / Unknown 05/21/2025 2:21 PM CANDLE MOLDER MACHINE 05/21/2025 2:21 PM CANDLE MOLDER MACHINE us LAB - CHEMISTRY ORDERABLES Final Result Performing Organization Address City/State/[facility] Co de Phone Number [facility] [address] [place] [address] documented in this encounter Visit Diagnoses Diagnosis 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
--- OUTSIDE RECORDS SUMMARY | 2025-06-20 17:07 | XMS_ITS | Encounter Summary ---
Author Organization [email or web address] Address [address] [place] [address] Care Team Providers Care Ancillary Specialist Name Role Phone Unavailable Primary Care Provider Unavailabl e Encounter Details Date Type Department Care Team (Latest Contact Info) Description 03/19/2006 Inpatient Historical HIS [place] [address] [place] [address] Other Specified Rehabilitation Procedure (Primary Dx) Social History Tobacco Use Types Packs/Day Years Used Date Smoking Tobacco: Never Assessed Sex and Gender Information Value Date Recorded Sex Assigned at Not on file Legal Sex Male 3:46 AM WEED CUTTER Gender Identity Not on file Sexual Orientation [...] ORDERABLES Final Re sult Performing Organization Address [facility] Phone Number INTERFACE SYSTEM Refer to clinic/hospital department * C-REACTIVE PROTEIN (04/05/2006 5:15 AM CDT) Pathologist [facility] CRP 0.2 0.0 - 0.8 mg/dL INTERFACE SYSTEM 04/05/2006 5:15 AM CDT [facility] CHEMISTRY ORDERABLES Final Res ult Performing Organization Address [facility] Phone Number INTERFACE SYSTEM Refer [...] Final R esult Performing Organization Address [facility] [...] ult Performing Organization Address [facility] [...] Final Res ult Performing Organization Address [facility] Phone Number INTERFACE SYSTEM Refer to clinic/hospital department * C-REACTIVE PROTEIN (03/29/2006 5:15 AM CDT) CRP 0.3 0.0 - 0.8 mg/dL INTERFACE SYSTEM 03/29/2006 5:15 AM CDT us Keenan Mandujano MD CHEMISTRY ORDERABLES Final Resu lt Performing Organization Address [facility] [...] lt Performing Organization Address [facility] [...] sult Performing Organization Address [facility] [...] INTERFACE SYSTEM 03/24/2006 12:1 0 PM CDT [facility] HEMATOLOGY ORDERABLES Final Re sult Performing Organization Address [facility] Phone Number INTERFACE SYSTEM Refer to clinic/hospital department * VANCOMYCIN LEVEL TROUGH (03/24/2006 12:10 PM CDT) VANCOMYCIN, TROUGH 11.3 5.0 - 15.0 ug/mL INTERFACE SYSTEM Comment: Vancomycin Trough Toxic Level= >15.0 ug/mL 03/24/2006 12:1 0 PM CDT Mambu Zaid CHEMISTRY ORDERABLES Final Res ult Performing Organization Address [facility] Phone Number INTERFACE SYSTEM Refer to clinic/hospital department * C-REACTIVE PROTEIN (03/24/2006 12:10 PM CDT) CRP 0.6 0.0 - 0.8 mg/dL INTERFACE SYSTEM 03/24/2006 12:1 0 PM CDT [facility] Zaid CHEMISTRY ORDERABLES Final Res ult Performing Organization Address [facility] [...] ORDERABLES Final Res ult Performing Organization Address [facility] Co de Phone Number INTERFACE [...] INTERFACE SYSTEM 03/23/2006 11:3 0 AM CDT [facility] Zaid HEMATOLOGY ORDERABLES Final Re sult Performing Organization Address [facility] de Phone Number INTERFACE SYSTEM Refer to [...] INTERFACE SYSTEM 03/23/2006 11:3 0 AM CDT [facility] Zaid HEMATOLOGY ORDERABLES Final Re sult Performing Organization Address City/[facility] Co de Phone Number INTERFACE SYSTEM Refer to clinic/hospital department * VANCOMYCIN LEVEL TROUGH (03/23/2006 11:30 AM CDT) VANCOMYCIN, TROUGH 6.2 5.0 - 15.0 ug/mL INTERFACE SYSTEM Comment: Vancomycin Trough Toxic Level= >15.0 ug/mL 03/23/2006 11:3 0 AM CDT [facility] Zaid CHEMISTRY ORDERABLES Final Res ult Performing Organization Address [facility] Phone Number INTERFACE SYSTEM Refer to clinic/hospital department * (ABNORMAL) C-REACTIVE PROTEIN (03/23/2006 11:30 AM CDT) CRP 1.0(H) 0.0 - 0.8 mg/dL INTERFACE SYSTEM 03/23/2006 11:3 0 AM CDT us [facility] Zaid CHEMISTRY ORDERABLES Final Res ult Performing Organization Address [facility] Phone Number INTERFACE SYSTEM Refer [...] INTERFACE SYSTEM 03/23/2006 11:3 0 AM [facility] ORDER[facility]LES Final Res ult Performing Organization Address [facility] [...] esult Performing Organization Address [facility] [...] /HPF INTERFACE SYSTEM 03/22/2006 8:30 PM CDT [email or web address] URINE ORDERABLES Final Result Performing Organization Address [facility] [...] Sushil Arroyo MD CHEMISTRY ORDERABLES Final R [facility] Performing Organization Address [facility] de Phone Number INTERFACE SYSTEM Refer to [...] Sushil Arroyo MD CHEMISTRY ORDERABLES Final R [facility] Performing Organization Address City/[facility] de Phone Number INTERFACE SYSTEM Refer to [...] Result Performing Organization Address [facility] [...] Result Performing Organization Address [facility] [...] 22 - 30 mmol/L INTERFACE SYSTEM 03/20/2006 7:1 9 AM CDT Sushil Arroyo MD CHEMISTRY ORDERABLES Final R esult Performing Organization Address [facility] [...] t Performing Organization Address [facility] Phone Number INTERFACE SYSTEM Refer to clinic/hospital department documented in this encounter Visit Diagnoses Diagnosis Other specified rehabilitation procedure(V57.89)- Primary Other specified rehabilitation procedure documented in this encounter
--- OUTSIDE RECORDS SUMMARY | 2025-06-20 17:07 | XMS_ITS | Encounter Summary ---
Author Organization [facility] Address [address] [place] [address] Care Team Providers Care Machine Builder Name Role Phone Rod Strauss MD Primary Care Provider [phone] Encounter Details Date Type Department Care Team (Late st Contact Info) Description 06/01/2025 Lab Requisition [facility] [address] [place] [address] Unknown, Provider Social History Tobacco Use Types [...] medical care, and heating? Patient declined 05/31/2024 [facility] - [...] time in the past 12 m [facility], were you homeless or living in a [place] health care facility (including now)? Patient declined 05/31/2024 Sex and Gender Information Value Date Recorded Sex Assigned at Not on file Legal Sex Male 5:23 PM REVENUE ENFORCEMENT COLLECTION AGENT Gender Identity Not on file Sexual Orientation Not on file documented as of this encounter Functional Status * Is person deaf or have serious hearing difficulty? Answer Date of Assessment Author Yes 06/01/2024 12:21 PM REVENUE ENFORCEMENT COLLECTION AGENT Princess Ohara RN * Is person blind or have serious difficulty seeing? Answer Date of Assessment Author No 06/01/2024 12:21 PM REVENUE ENFORCEMENT COLLECTION AGENT Princess Ohara RN * Does person have serious difficulty walking/climbing stairs? Answer Date of Assessment Author Yes 06/01/2024 12:21 PM REVENUE ENFORCEMENT COLLECTION AGENT Princess Ohara RN * Does person have difficulty dressing/bathing? Answer Date of Assessment Author Yes 06/01/2024 12:21 PM REVENUE ENFORCEMENT COLLECTION AGENT Princess Ohara RN * Does person have difficulty doing errands alone? Answer Date of Assessment Author Yes 06/01/2024 12:21 PM REVENUE ENFORCEMENT COLLECTION AGENT Princess Ohara RN documented as of this encounter Mental Status * Does person have difficulty concentrating/remembering/making decisions? Answer Entry Date Author No 06/01/2024 12:21 PM REVENUE ENFORCEMENT COLLECTION AGENT Princess Ohara RN documented in this encounter Plan of Treatment Not on file documented as of this encounter Procedures Procedure Name Priority Date/Time Associated Diagnosis Comments VANCOMYCIN LEVEL TROUGH STAT 06/01/2025 12:00 PM REVENUE ENFORCEMENT COLLECTION AGENT documented in this encounter Results * VANCOMYCIN LEVEL TROUGH (06/01/2025 12:00 PM REVENUE ENFORCEMENT COLLECTION AGENT) Vancomycin Trough 16.1 10.0 - 20.0 ug/mL 06/01/2025 4:49 PM REVENUE ENFORCEMENT COLLECTION AGENT [facility] Blood BLOOD SPECIMEN / Unknown Venipuncture / Unknown 06/01/2025 12:00 PM REVENUE ENFORCEMENT COLLECTION AGENT 06/01/2025 4:28 PM REVENUE ENFORCEMENT COLLECTION AGENT us Provider Unknown LAB - CHEMISTRY ORDERABLES Johanne l Result Performing Organization Address City/State/[facility] Co de Phone Number [facility] [address] [place] [address] documented in this encounter Visit Diagnoses Not on filedocumented in this encounter Additional Health Concerns Infection Onset Date Last Indicated Resolved Time ESBL GNR 06/01/2024 06/01/2024 documented as of this encounter Care Teams Machine Builder Relationship Specialty Start Date End Date Rod Strauss MD [address] [place] [id number] PCP - General Internal Medicine 06/15/24 documented as of this encounter
--- OUTSIDE RECORDS SUMMARY | 2025-06-20 17:07 | XMS_ITS | Encounter Summary ---
Author Organization [facility] Address [address] [place] [address] Care Team Providers Care Shader And Toner Name Role Phone Unavailable Primary Care Provider Unavailabl e Encounter Details Date Type Department Care Team (Late st Contact Info) Description 01/08/2006 Outpatient Historical [facility] Trauma and General Surgery [address] [facility] [address] Jayden James MD [address] [place] [address] Social History Tobacco Use Types Packs/Day Years Used Date Smoking Tobacco: Never Assessed Sex and Gender Information Value Date Recorded Sex Assigned at Not on file Legal Sex Male 3:46 AM WELDER BOILERMAKER Gender Identity Not on file Sexual Orientation Not on file documented as of this encounter Plan of Treatment Not on file documented as of this encounter Visit Diagnoses Not on filedocumented in this encounter
--- OUTSIDE RECORDS SUMMARY | 2025-06-20 17:07 | XMS_ITS | Encounter Summary ---
Author Organization [facility] Address [address] [place] [address] Care Team Providers Care Microsoft Exchange Architect Name Role Phone Unavailable Primary Care Provider Unavailabl e Encounter Details Date Type Department Care Team (Late st Contact Info) Description 03/10/2006 Outpatient Historical [facility] [address] [phone] Rita Esqueda MD [address] [address] Social History Tobacco Use Types Packs/Day Years Used Date Smoking Tobacco: Never Assessed Sex and Gender Information Value Date Recorded Sex Assigned at Not on file Legal Sex Male 3:46 AM CHIEF WHARFINGER Gender Identity Not on file Sexual Orientation Not on file documented as of this encounter Plan of Treatment Not on file documented as of this encounter Visit Diagnoses Not on filedocumented in this encounter
--- OUTSIDE RECORDS SUMMARY | 2025-06-20 17:07 | XMS_ITS | Encounter Summary ---
Author Organization [facility] Address [address] [place] [address] Care Team Providers Care Rehab Office Coordinator Name Role Phone Unavailable Primary Care Provider Unavailabl e Encounter Details Date Type Department Care Team (Late st Contact Info) Description 01/11/2006 Outpatient Historical [facility] Trauma and General Surgery [address] [phone] [place] [address] [place] [address] Social History Tobacco Use Types Packs/Day Years Used Date Smoking Tobacco: Never Assessed Sex and Gender Information Value Date Recorded Sex Assigned at Not on file Legal Sex Male 3:46 AM ENVIRONMENTAL SERVICES LEAD Gender Identity Not on file Sexual Orientation Not on file documented as of this encounter Plan of Treatment Not on file documented as of this encounter Visit Diagnoses Not on filedocumented in this encounter
--- OUTSIDE RECORDS SUMMARY | 2025-06-20 17:07 | XMS_ITS | Encounter Summary ---
Author Organization [facility] Address [address] [place] [address] Care Team Providers Care Media Planner Name Role Phone Unavailable Primary Care Provider Unavailabl e Encounter Details Date Type Department Care Team (Late st Contact Info) Description 01/10/2006 Outpatient Historical [facility] Trauma and General Surgery [address] [phone] [place] [address] [place] [address] Social History Tobacco Use Types Packs/Day Years Used Date Smoking Tobacco: Never Assessed Sex and Gender Information Value Date Recorded Sex Assigned at Not on file Legal Sex Male 3:46 AM MANUFACTURING PROJECT 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
--- OUTSIDE RECORDS SUMMARY | 2025-06-20 17:07 | XMS_ITS | Encounter Summary ---
Author Organization [facility] Address [address] [place] [address] Care Team Providers Care Macaroni Press Operator Name Role Phone Unavailable Primary Care Provider Unavailabl e Encounter Details Date Type Department Care Team (Late st Contact Info) Description 09/26/2019 Lab Requisition [facility] [address] [place] [address] [facility], External Provider [address] [place] [address] Unspecified abnormal findings in urine Social History Tobacco Use Types Packs/Day Years Used Date Smoking Tobacco: Never Assessed Sex and Gender Information Value Date Recorded Sex Assigned at Not on file 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 Gender Identity Not on file Sexual [...] - 145 mmol/L 09/26/2019 8:53 PM CDT [facility] POTASSIUM 5.1 3.4 - 5.1 mmol/L 09/26/2019 8:53 PM CDT [facility] CHLORIDE 105 98 - 107 mmol/L 09/26/2019 8:53 PM [facility] CO2 23 22 - 29 mmol/L 09/26/2019 8:53 PM [facility] CALCIUM 8.6 8.6 - 10.4 mg/dL 09/26/2019 8:53 PM [facility] BUN 28(H) 6 - 20 mg/dL 09/26/2019 8:53 PM [facility] CREATININE 1.07 0.67 - 1.17 mg/dL 09/26/2019 8:53 PM [facility] Comment:The GFR result is no t clinically significant on patients <18 or >70 years of age. GLUCOSE 83 74 - 99 mg/dL 09/26/2019 8:53 PM [facility] TOTAL PROTEIN 6.7 6.3 - 8.7 g/dL 09/26/2019 8:53 PM [facility] ALBUMIN 4.2 3.5 - 5.2 g/dL 09/26/2019 8:53 PM [facility] BILIRUBIN TOTAL 0.3 0.2 - 1.3 mg/dL 09/26/2019 8:53 PM [facility] ALKALINE PHOSPHATASE 99 40 - 150 U/L 09/26/2019 8:53 PM [facility] AST 18 0 - 41 U/L 09/26/2019 8:53 PM [facility] ALT 18 0 - 41 U/L 09/26/2019 8:53 PM [facility] GFR >60 mL/min/1.7 3 sq meter 09/26/2019 8:53 PM [facility] Comment: eGFR has not been validated [...] 3 sq meter 09/26/2019 8:53 PM CDT [facility] ANION GAP 14 8 - 16 mmol/L 09/26/2019 8:53 PM CDT [facility] Blood BLOOD SPECIMEN / Unknown Collection / Unknown 09/26/2019 3:44 PM CDT 09/26/2019 8:17 PM CDT us External Provider [facility] CHEMISTRY ORDERABLES Johanne l Result [facility] CLIA# [id number] [place] [address] * (ABNORMAL) CBC WITH DIFFERENTIAL (09/26/2019 3:44 PM CDT) WBC 6.6 4.5 - 10.5 K/uL 09/26/2019 8:26 PM CDT [facility] RBC 3.80(L) 4.50 - 5.40 M/uL 09/26/2019 8:26 PM CDT [facility] HEMOGLOBIN 11.5(L) 13.6 - 16.5 g/dL 09/26/2019 8:26 PM CDT [facility] HEMATOCRIT 34.3(L) 40.0 - 48.0 % 09/26/2019 8:26 PM CDT [facility] MCV 90.2 82.0 - 99.0 fL 09/26/2019 8:26 PM CDT [facility] MCH 30.2 27.8 - 34.5 pg 09/26/2019 8:26 PM CDT [facility] MCHC 33.5 32.5 - 35.5 g/dL 09/26/2019 8:26 PM CDT [facility] RDW 15.8(H) 11.5 - 14.5 % 09/26/2019 8:26 PM CDT [facility] PLATELETS 175 160 - 420 K/uL 09/26/2019 8:26 PM CDT [facility] MPV 10.2 8.7 - 12.7 fL 09/26/2019 8:26 PM CDT [facility] NEUTROPHILS 68 45 - 70 % 09/26/2019 8:26 PM CDT [facility] LYMPHOCYTES 16 16 - 45 % 09/26/2019 8:26 PM CDT [facility] MONOCYTES 10 3 - 13 % 09/26/2019 8:26 PM CDT [facility] EOSINOPHILS 5 0 - 7 % 09/26/2019 8:26 PM CDT [facility] BASOPHILS 1 0 - 2 % 09/26/2019 8:26 PM CDT [facility] NEUTROPHIL ABSOLUTE 4.50 1.90 - 7.00 K/uL 09/26/2019 8:26 PM CDT [facility] LYMPHOCYTE ABSOLUTE 1.10 0.70 - 4.50 K/uL 09/26/2019 8:26 PM CDT [facility] MONOCYTE ABSOLUTE 0.60 0.10 - 1.30 K/uL 09/26/2019 8:26 PM CDT [facility] EOSINOPHIL ABSOLUTE 0.40 0.00 - 0.70 K/uL 09/26/2019 8:26 PM CDT [facility] BASOPHILS ABSOLUTE 0.00 0.00 - 0.20 K/uL 09/26/2019 8:26 PM CDT [facility] Blood BLOOD SPECIMEN / Unknown Collection / Unknown 09/26/2019 3:44 PM CDT 09/26/2019 8:17 PM CDT us External Provider [facility] HEMATOLOGY ORDERABLES Fin al Result [facility] CLIA# [id number] [place] [address] * (ABNORMAL) URINALYSIS WITH REFLEX MICROSCOPIC (09/26/2019 3:00 PM CDT) COLOR UA Yellow Pale to Dark Yellow 09/26/2019 8:52 PM CDT [facility] CLARITY UA Slightly Cloudy(A) Clear 09/26/2019 8:52 PM CDT [facility] SPECIFIC GRAVITY UA 1.019 1.003 - 1.035 09/26/2019 8:52 PM CDT [facility] PH UA 5.0 5.0 - 8.0 09/26/2019 8:52 PM CDT [facility] LEUKOCYTE ESTERASE UA Negative Negative 09/26/2019 8:52 PM CDT [facility] NITRITE UA Negative Negative 09/26/2019 8:52 PM CDT [facility] PROTEIN UA Negative Negative 09/26/2019 8:52 PM CDT [facility] GLUCOSE UA Negative Negative 09/26/2019 8:52 PM CDT [facility] KETONES UA Negative Negative 09/26/2019 8:52 PM CDT [facility] UROBILINOGEN UA Normal <2.0 mg/dL 0 8:52 PM CDT [facility] BILIRUBIN UA Negative Negative 09/26/2019 8:52 PM CDT [facility] BLOOD UA Negative Negative 09/26/2019 8:52 PM CDT [facility] Comment:Ascorbic acid may ca use false negative results for blood. A microscopic review was reflexed to rule out this interference. WBC UA 0-2 0 - 2 /hpf 09/26/2019 8:[facility]A 0-2 0 - 2 /hpf 09/26/2019 8:52 PM CDT [facility] BACTERIA UA 1+(A) Negative /hpf 09/26/2019 8:52 PM CDT [facility] EPITHELIAL CELLS, URINE 0-5 0 - 5 /hpf 09/26/2019 8:52 PM CDT [facility] HYALINE CAST 0-2 None Seen, 0-2 /lpf 09/26/2019 8:52 PM CDT [facility] Ascorbic Acid UA Positive(A) Negative 020 8:52 PM CDT [facility] Urine URINE SPECIMEN OBTAINED BY CLEAN CATCH PROCEDURE / Unknown Collection / Unknown 09/26/2019 3:00 PM CDT 09/26/2019 8:17 PM CDT us External Provider [facility] URINE ORDERABLES Final Re sult [facility] CLIA# [id number] [address] [place] [address] documented in this encounter Visit Diagnoses Diagnosis Unspecified abnormal findings in urine documented in this encounter
--- OUTSIDE RECORDS SUMMARY | 2025-06-20 17:07 | XMS_ITS | Encounter Summary ---
Author Organization [employer] Address 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 Phone Number INTERFACE SYSTEM [...] Final Res ult Performing Organization Address [facility] Phone Number INTERFACE SYSTEM [...] ORDERABLES Final Resu lt Performing Organization Address [facility] Phone Number INTERFACE SYSTEM Refer to clinic/hospital department * (ABNORMAL) POC GLUCOSE (01/08/2006 9:26 PM CDT) GLUCOSE POC 133(H) 65 - 109 mg/dL INTERFACE SYSTEM 01/08/2006 9:26 PM CDT José Fine MD POINT OF CARE TESTING Final Result Performing Organization Address [facility] Phone Number INTERFACE SYSTEM Refer to clinic/hospital department * (ABNORMAL) POC GLUCOSE (01/08/2006 5:25 PM CDT) GLUCOSE POC 125(H) 65 - 109 mg/dL INTERFACE SYSTEM 01/08/2006 5:25 PM CDT José Fine MD POINT OF CARE TESTING Final Result Performing Organization Address [facility] Phone Number INTERFACE SYSTEM Refer to clinic/hospital department * (ABNORMAL) POC GLUCOSE (01/08/2006 11:50 AM CDT) GLUCOSE POC 122(H) 65 - 109 mg/dL INTERFACE SYSTEM 01/08/2006 11:5 0 AM CDT us José Fine MD POINT OF CARE TESTING Final Result Performing Organization Address [facility] Phone Number INTERFACE SYSTEM Refer to clinic/hospital department * (ABNORMAL) POC GLUCOSE (01/08/2006 5:35 AM CDT) GLUCOSE POC 128(H) 65 - 109 mg/dL INTERFACE SYSTEM 01/08/2006 5:35 AM CDT us José Fine MD POINT OF CARE TESTING Final Result Performing Organization Address [facility] Phone Number INTERFACE SYSTEM Refer to clinic/hospital department * (ABNORMAL) POC GLUCOSE (01/07/2006 8:48 PM CDT) GLUCOSE POC 124(H) 65 - 109 mg/dL INTERFACE SYSTEM 01/07/2006 8:48 PM CDT us José Fine MD POINT OF CARE TESTING Final Result Performing Organization Address [facility] Phone Number INTERFACE SYSTEM Refer to clinic/hospital department * (ABNORMAL) POC GLUCOSE (01/07/2006 4:51 PM CDT) GLUCOSE POC 121(H) 65 - 109 mg/dL INTERFACE SYSTEM 01/07/2006 4:51 PM CDT us José Fine MD POINT OF CARE TESTING Final Result Performing Organization Address [facility] Phone Number INTERFACE SYSTEM Refer to clinic/hospital department * (ABNORMAL) POC GLUCOSE (01/07/2006 11:16 AM CDT) GLUCOSE POC 119(H) 65 - 109 mg/dL INTERFACE SYSTEM 01/07/2006 11:1 6 AM CDT us José Fine MD POINT OF CARE TESTING Final Result Performing Organization Address [facility] de Phone Number INTERFACE SYSTEM Refer to clinic/hospital department * (ABNORMAL) POC GLUCOSE (01/07/2006 6:24 AM CDT) GLUCOSE POC 114(H) 65 - 109 mg/dL INTERFACE SYSTEM 01/07/2006 6:24 AM CDT us José Fine MD POINT OF CARE TESTING Final Result Performing Organization Address [facility] de Phone Number INTERFACE [...] Final Resu lt Performing Organization Address [facility] de Phone Number INTERFACE [...] Resu lt Performing Organization Address [facility] de Phone Number INTERFACE SYSTEM Refer to clinic/hospital department * PHOSPHORUS (01/07/2006 5:30 AM CDT) PHOSPHORUS 3.1 2.5 - 4.5 mg/dL INTERFACE SYSTEM 01/07/2006 5:30 AM CDT Terry Cole MD CHEMISTRY ORDERABLES Final Resul t Performing Organization Address [facility] Phone Number INTERFACE SYSTEM Refer to clinic/hospital department * MAGNESIUM LEVEL (01/07/2006 5:30 AM CDT) MAGNESIUM 2.3 1.5 - 2.5 mg/dL INTERFACE SYSTEM 01/07/2006 5:30 AM CDT Terry Cole MD CHEMISTRY ORDERABLES Final Resul t Performing Organization Address [facility] Phone Number INTERFACE SYSTEM [...] Resul t Performing Organization Address [facility] de Phone Number INTERFACE SYSTEM Refer to clinic/hospital department * (ABNORMAL) POC GLUCOSE (01/07/2006 12:49 AM CDT) GLUCOSE POC 114(H) 65 - 109 mg/dL INTERFACE SYSTEM 01/07/2006 12:4 9 AM CDT us José Fine MD POINT OF CARE TESTING Final Result Performing Organization Address [facility] Co de Phone Number INTERFACE SYSTEM Refer to clinic/hospital department * (ABNORMAL) POC GLUCOSE (01/06/2006 5:40 PM CDT) COMMENT, GLU POC Notified RN INTERFACE SYSTEM GLUCOSE POC 128(H) 65 - 109 mg/dL INTERFACE SYSTEM 01/06/2006 5:40 PM CDT us José Fine MD POINT OF CARE TESTING Final Result Performing Organization Address [facility] Phone Number INTERFACE SYSTEM Refer to clinic/hospital department * (ABNORMAL) POC GLUCOSE (01/06/2006 11:43 AM CDT) COMMENT, GLU POC Notified RN INTERFACE SYSTEM GLUCOSE POC 120(H) 65 - 109 mg/dL INTERFACE SYSTEM 01/06/2006 11:4 3 AM CDT us José Fine MD POINT OF CARE TESTING Final Result Performing Organization Address [facility] de Phone Number INTERFACE SYSTEM Refer to clinic/hospital department * (ABNORMAL) POC GLUCOSE (01/06/2006 5:48 AM CDT) GLUCOSE POC 120(H) 65 - 109 mg/dL INTERFACE SYSTEM 01/06/2006 5:48 AM CDT us José Fine MD POINT OF CARE TESTING Final Result Performing Organization Address [facility] Co de Phone Number INTERFACE [...] Resu lt Performing Organization Address [facility]/ZIP Co de Phone Number INTERFACE [...] Final Resul t Performing Organization Address [facility] de Phone Number INTERFACE [...] Resul t Performing Organization Address [facility]/ZIP Co de Phone Number INTERFACE SYSTEM Refer to clinic/hospital department * (ABNORMAL) POC GLUCOSE (01/06/2006 1:00 AM CDT) GLUCOSE POC 142(H) 65 - 109 mg/dL INTERFACE SYSTEM 01/06/2006 1:00 AM CDT José Fine MD POINT OF CARE TESTING Final Result Performing Organization Address [facility] Phone Number INTERFACE SYSTEM Refer to clinic/hospital department * (ABNORMAL) POC GLUCOSE (01/05/2006 5:49 PM CDT) GLUCOSE POC 137(H) 65 - 109 mg/dL INTERFACE SYSTEM 01/05/2006 5:49 PM CDT José Fine MD POINT OF CARE TESTING Final Result Performing Organization Address [facility] Phone Number INTERFACE SYSTEM Refer to clinic/hospital department * (ABNORMAL) POC GLUCOSE (01/05/2006 11:57 AM CDT) GLUCOSE POC 133(H) 65 - 109 mg/dL INTERFACE SYSTEM 01/05/2006 11:5 7 AM CDT José Fine MD POINT OF CARE TESTING Final Result Performing Organization Address [facility] Phone Number INTERFACE SYSTEM Refer to clinic/hospital department * (ABNORMAL) POC GLUCOSE (01/05/2006 5:59 AM CDT) GLUCOSE POC 142(H) 65 - 109 mg/dL INTERFACE SYSTEM 01/05/2006 5:59 AM CDT José Fine MD POINT OF CARE TESTING Final Result Performing Organization Address [facility] Phone Number INTERFACE SYSTEM [...] SYSTEM 01/05/2006 4:00 AM CDT [email or web address] [employer] HEMATOLOGY ORDERABLES Final Result Performing Organization Address [facility] Phone Number INTERFACE SYSTEM [...] fL INTERFACE SYSTEM 01/05/2006 4:00 AM CDT [facility] HEMATOLOGY ORDERABLES Final Result Performing Organization Address [facility] Phone Number INTERFACE SYSTEM [...] patients with mechanical heart valves or post NM. Pediatric (12 years and under): 1.5 - [...] for unfractionated heparin 01/05/2006 4:00 AM CDT [employer] HEMATOLOGY ORDERABLES Final Result Performing Organization Address [facility] Phone Number INTERFACE SYSTEM Refer to clinic/hospital department * PHOSPHORUS (01/05/2006 4:00 AM CDT) PHOSPHORUS 2.9 2.5 - 4.5 mg/dL INTERFACE SYSTEM 01/05/2006 4:00 AM CDT Luis Eduardo [employer] CHEMISTRY ORDERABLES Final R esult Performing Organization Address [facility] Phone Number INTERFACE SYSTEM Refer to clinic/hospital department * MAGNESIUM LEVEL (01/05/2006 4:00 AM CDT) MAGNESIUM 2.2 1.5 - 2.5 mg/dL INTERFACE SYSTEM 01/05/2006 4:00 AM CDT [employer] CHEMISTRY ORDERABLES Final R esult Performing Organization Address [facility] Phone Number INTERFACE SYSTEM [...] Final R esult Performing Organization Address [facility] Phone Number INTERFACE SYSTEM Refer to clinic/hospital department * (ABNORMAL) POC GLUCOSE (01/04/2006 11:41 PM CDT) GLUCOSE POC 140(H) 65 - 109 mg/dL INTERFACE SYSTEM 01/04/2006 11:4 1 PM CDT us José Fine MD POINT OF CARE TESTING Final Result Performing Organization Address [facility] Phone Number INTERFACE SYSTEM Refer to clinic/hospital department * (ABNORMAL) POC GLUCOSE (01/04/2006 5:43 PM CDT) GLUCOSE POC 156(H) 65 - 109 mg/dL INTERFACE SYSTEM 01/04/2006 5:43 PM CDT us José Fine MD POINT OF CARE TESTING Final Result Performing Organization Address [facility] Phone Number INTERFACE SYSTEM Refer to clinic/hospital department * (ABNORMAL) POC GLUCOSE (01/04/2006 11:37 AM CDT) GLUCOSE POC 175(H) 65 - 109 mg/dL INTERFACE SYSTEM 01/04/2006 11:3 7 AM CDT us José Fine MD POINT OF CARE TESTING Final Result Performing Organization Address [facility] Phone Number INTERFACE SYSTEM Refer to clinic/hospital department * (ABNORMAL) POC GLUCOSE (01/04/2006 6:11 AM CDT) GLUCOSE POC 183(H) 65 - 109 mg/dL INTERFACE SYSTEM 01/04/2006 6:11 AM CDT José Fine MD POINT OF CARE TESTING Final Result Performing Organization Address [facility] Phone Number INTERFACE SYSTEM [...] ORDERABLES F inal Result Performing Organization Address [facility] Phone Number INTERFACE SYSTEM [...] patients with mechanical heart valves or post NM. Pediatric (12 years and under): 1.5 - [...] ORDERABLES F inal Result Performing Organization Address [facility] Phone Number INTERFACE SYSTEM Refer to clinic/hospital department * PHOSPHORUS (01/04/2006 4:20 AM CDT) PHOSPHORUS 2.5 2.5 - 4.5 mg/dL INTERFACE SYSTEM 01/04/2006 4:20 AM CDT us Rayray Wilcox MD CHEMISTRY ORDERABLES Fi nal Result Performing Organization Address [facility] Phone Number INTERFACE SYSTEM Refer to clinic/hospital department * MAGNESIUM LEVEL (01/04/2006 4:20 AM CDT) MAGNESIUM 2.0 1.5 - 2.5 mg/dL INTERFACE SYSTEM 01/04/2006 4:20 AM CDT Rayray Wilcox MD CHEMISTRY ORDERABLES Fi nal Result Performing Organization Address [facility] Phone Number INTERFACE SYSTEM Refer to clinic/hospital [...] Final Re sult Performing Organization Address [facility]/ZIP Co de Phone Number INTERFACE SYSTEM Refer to clinic/hospital department * (ABNORMAL) POC GLUCOSE (01/04/2006 12:25 AM CDT) GLUCOSE POC 188(H) 65 - 109 mg/dL INTERFACE SYSTEM 01/04/2006 12:2 5 AM CDT José Fine MD POINT OF CARE TESTING Final Result Performing Organization Address [facility] de Phone Number INTERFACE SYSTEM Refer to clinic/hospital department * (ABNORMAL) POC GLUCOSE (01/03/2006 5:25 PM CDT) GLUCOSE POC 177(H) 65 - 109 mg/dL INTERFACE SYSTEM 01/03/2006 5:25 PM CDT José Fine MD POINT OF CARE TESTING Final Result Performing Organization Address [facility] de Phone Number INTERFACE SYSTEM Refer to clinic/hospital department * (ABNORMAL) POC GLUCOSE (01/03/2006 11:34 AM CDT) GLUCOSE POC 148(H) 65 - 109 mg/dL INTERFACE SYSTEM 01/03/2006 11:3 4 AM CDT José Fine MD POINT OF CARE TESTING Final Result Performing Organization Address [facility] de Phone Number INTERFACE [...] ORDERABLES F inal Result Performing Organization Address [facility] Phone Number INTERFACE SYSTEM [...] ORDERABLES F inal Result Performing Organization Address [facility] Phone Number INTERFACE SYSTEM [...] ORDERABLES F inal Result Performing Organization Address [facility] Phone Number INTERFACE SYSTEM [...] patients with mechanical heart valves or post NM. Pediatric (12 years and under): 1.5 - [...] ORDERABLES Fi nal Result Performing Organization Address [facility] Phone Number INTERFACE SYSTEM Refer to clinic/hospital department * MAGNESIUM LEVEL (01/03/2006 10:46 AM CDT) MAGNESIUM 1.8 1.5 - 2.5 mg/dL INTERFACE SYSTEM 01/03/2006 10:4 6 AM CDT Rayray Wilcox MD CHEMISTRY ORDERABLES Fi nal Result Performing Organization Address [facility] Phone Number INTERFACE SYSTEM [...] CHEMISTRY ORDERABLES nal Result Performing Organization Address [facility] Phone Number INTERFACE SYSTEM [...] patients with mechanical heart valves or post NM. Pediatric (12 years and under): 1.5 - [...] drugs of abuse are available on the [facility] [facility] at: [email or web address] Select: Drugs of Abuse ? [facility] To inquire about any potential [...] URINE ORDERABLES Final Result Performing Organization Address [facility]/ZIP Co de Phone Number INTERFACE [...]
--- OUTSIDE RECORDS SUMMARY | 2025-06-20 17:07 | XMS_ITS | Encounter Summary ---
Author Organization [email or web address] Address [address] [place] [address] Care Team Providers Care Coconut Cooker Name Role Phone Unavailable Primary Care Provider Unavailabl e Encounter Details Date Type Department Care Team (Late st Contact Info) Description 01/13/2006 Outpatient Historical [facility] 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
--- OUTSIDE RECORDS SUMMARY | 2025-06-20 17:07 | XMS_ITS | Encounter Summary ---
Author Organization [facility] Address [address] [place] [address] Care Team Providers Care Laser Beam Machine Operator Name Role Phone Unavailable Primary Care Provider Unavailabl e Encounter Details Date Type Department Care Team (Late st Contact Info) Description 01/11/2006 Outpatient Historical [facility] Trauma and General Surgery [address] [address] [place] [address] [place] [address] Social History Tobacco Use Types Packs/Day Years Used Date Smoking Tobacco: Never Assessed Sex and Gender Information Value Date Recorded Sex Assigned at Not on file 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
--- OUTSIDE RECORDS SUMMARY | 2025-06-20 17:07 | XMS_ITS | Encounter Summary ---
Author Organization [facility] Address 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
--- OUTSIDE RECORDS SUMMARY | 2025-06-20 17:07 | XMS_ITS | Encounter Summary ---
Author Organization [facility] Address [address] [place] [address] Care Team Providers Care Chip Silo Tender Name Role Phone Shant Loaiza MD Primary Care Provider [phone] Derick Madsen MD Unavailable [phone] Encounter Details Date Type Department Care Team (Late st Contact Info) Description 06/20/2025 Telephone [facility] - [address] [place] [address] Whitney Bolaños, RN Social History Tobacco Use Types Packs/Day Years Used Date Smoking Tobacco: Former Cigarettes Q uit: 1980 Smokeless Tobacco: Never Alcohol Use Standard Drinks/Week Comments Not Currently [...] any clubs o r organizations such as mormon groups, unions, fraternal or athletic groups, or [...] place to sleep or slept in a usp (including now)? No 04/15/2023 Social Connection and [...] any clubs o r organizations such as mormon groups, unions, fraternal or athletic groups, or [...] time in the past 12 m [facility], were you homeless or living in a usp (including now)? No 05/04/2025 [facility] Utilities Answer Date Recorded In the past 12 months has th e Ember, gas, oil, or water [employer] interprises threatened to shut off services in your home? No 05/04/2025 Personal Safety Answer Date Recorded Have you ever been in or are you currently in a harmful physical or emotional relationship or is someone making you feel afraid or unsafe? 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 921- Call returned, spoke with ABE Barriga nurse who reports that patient has been declining, hasbeen experiencing uncontrolled pain, and is requesting an info visit with someone from hospice to discuss his options. The nurse states that we should call the [facility]CF at the above # to schedule with thepatient. Instructed to please send the referral order, face sheet, H&P and recent progress noteto our intake fax #. Provided her with fax # and she will send shortly. Email to [facility] Intake to ensure f/u. 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
--- OUTSIDE RECORDS SUMMARY | 2025-06-20 17:07 | XMS_ITS | Encounter Summary ---
Author Organization [facility] Address [address] [place] [address] Care Team Providers Care Academic Coach Name Role Phone Unavailable Primary Care Provider Unavailabl e Encounter Details Date Type Department Care Team (Late st Contact Info) Description 01/04/2006 Outpatient Historical [facility] Trauma and General Surgery [address] [address] [facility] [place] [address] Jayden James MD [address] [facility] [address] [place] [address] Social History Tobacco Use Types Packs/Day Years Used Date Smoking Tobacco: Never Assessed Sex and Gender Information Value Date Recorded Sex Assigned at Not on file 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
--- OUTSIDE RECORDS SUMMARY | 2025-06-20 17:07 | XMS_ITS | Encounter Summary ---
Author Organization [facility] Address [address] [place] [address] Care Team Providers Care Sewing Inspector Name Role Phone Unavailable Primary Care Provider Unavailabl e Encounter Details Date Type Department Care Team (Late st Contact Info) Description 01/06/2006 Outpatient Historical [facility] Trauma and General Surgery [address] [facility] [address] [facility] [place] [address] Jayden James MD [address] [facility] [address] [place] [address] Social History Tobacco Use Types Packs/Day Years Used Date Smoking Tobacco: Never Assessed Sex and Gender Information Value Date Recorded Sex Assigned at Not on file 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
--- OUTSIDE RECORDS SUMMARY | 2025-06-20 17:07 | XMS_ITS | Encounter Summary ---
Author Organization [facility] Address [address] [place] [address] Care Team Providers Care Corporate Treasury Analyst Name Role Phone Unavailable Primary Care Provider Unavailabl e Encounter Details Date Type Department Care Team (Late st Contact Info) Description 05/13/2019 Lab Requisition [facility] [id number] [place] [address] [facility], External Provider [address] [place] [address] Other fatigue Social History Tobacco Use Types Packs/Day Years Used Date Smoking Tobacco: Never Assessed Sex and Gender Information Value Date Recorded Sex Assigned at Not on file 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 Gender Identity Not on file Sexual Orientation Not on file documented as of this encounter Plan of Treatment Not on file documented as of this encounter Procedures Procedure Name Priority Date/Time Associated Diagnosis Comments CBC WITH DIFFERENTIAL Stat 05/13/2019 4:50 PM WINDING RACK OPERATOR Other fatigue BASIC METABOLIC PANEL Stat 05/13/2019 4:50 PM WINDING RACK OPERATOR Other fatigue documented in this encounter Results * (ABNORMAL) CBC WITH DIFFERENTIAL (05/13/2019 4:50 PM WINDING RACK OPERATOR) [facility] WBC 6.1 4.5 - 10.5 K/uL 05/13/2019 9:52 PM WINDING RACK OPERATOR [facility] RBC 4.04(L) 4.50 - 5.40 M/uL 05/13/2019 9:52 PM WINDING RACK OPERATOR [facility] HEMOGLOBIN 12.1(L) 13.6 - 16.5 g/dL 05/13/2019 9:52 PM WINDING RACK OPERATOR [facility] HEMATOCRIT 37.1(L) 40.0 - 48.0 % 05/13/2019 9:52 PM [facility] MCV 91.7 82.0 - 99.0 fL 05/13/2019 9:52 PM [facility] MCH 30.0 27.8 - 34.5 pg 05/13/2019 9:52 PM [facility] MCHC 32.7 32.5 - 35.5 g/dL 05/13/2019 9:52 PM [facility] RDW 14.9(H) 11.5 - 14.5 % 05/13/2019 9:52 PM [facility] PLATELETS 162 160 - 420 K/uL 05/13/2019 9:52 PM [facility] [employer] [facility] MPV 9.8 8.7 - 12.7 fL 05/13/2019 9:52 PM [facility] NEUTROPHILS 70 45 - 70 % 05/13/2019 9:52 PM [facility] LYMPHOCYTES 16 16 - 45 % 05/13/2019 9:52 PM [facility] MONOCYTES 10 3 - 13 % 05/13/2019 9:52 PM [facility] EOSINOPHILS 4 0 - 7 % 05/13/2019 9:52 PM [facility] BASOPHILS 1 0 - 2 % 05/13/2019 9:52 PM [facility] [employer] [facility] NEUTROPHIL ABSOLUTE 4.20 1.90 - 7.00 K/uL 05/13/2019 9:52 PM [facility] [employer] [facility] LYMPHOCYTE ABSOLUTE 0.90 K/uL 05/13/2019 9:52 PM [facility] MONOCYTE ABSOLUTE 0.60 K/uL 05/13/2019 9:52 PM [facility] EOSINOPHIL ABSOLUTE 0.30 0.00 - 0.70 K/uL 05/13/2019 9:52 PM [facility] BASOPHILS ABSOLUTE 0.00 K/uL 05/13/2019 9:52 PM [facility] [employer] [facility] Blood BLOOD SPECIMEN / Unknown Collection / Unknown 05/13/2019 4:50 PM WINDING RACK OPERATOR 05/13/2019 9:42 PM WINDING RACK OPERATOR us External Provider [facility] HEMATOLOGY ORDERABLES Fin al Result [facility] [employer] [facility] LESTER# [id number] [place] [address] * (ABNORMAL) BASIC METABOLIC PANEL (05/13/2019 4:50 PM WINDING RACK OPERATOR) SODIUM 143 136 - 145 mmol/L 05/13/2019 10:11 PM [facility] [employer] [facility] POTASSIUM 4.2 3.4 - 5.1 mmol/L 05/13/2019 10:11 PM [facility] [employer] [facility] CHLORIDE 104 98 - 107 mmol/L 05/13/2019 [...] 74 - 99 mg/dL 05/13/2019 10:11 PM [facility] [employer] [facility] GFR >60 mL/min/1.7 3 sq meter 05/13/2019 10:11 PM [facility] [employer] [facility] Comment: eGFR has not been validated for [...] mL/min/1.7 3 sq meter 05/13/2019 10:11 PM WINDING RACK OPERATOR [facility] ANION GAP 12 8 - 16 mmol/L 05/13/2019 10:11 PM WINDING RACK OPERATOR [facility] Blood BLOOD SPECIMEN / Unknown Collection / Unknown 05/13/2019 4:50 PM WINDING RACK OPERATOR 05/13/2019 9:42 PM WINDING RACK OPERATOR External Provider [facility] CHEMISTRY ORDERABLES Johanne l Result [facility] LAB[facility] CLIA# [id number] [place] [address] documented in this encounter Visit Diagnoses Diagnosis Other fatigue documented in this encounter
--- OUTSIDE RECORDS SUMMARY | 2025-06-20 17:07 | XMS_ITS | Encounter Summary ---
Author Organization [employer] Address 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 Gender Identity Not on file Sexual [...] ABG ORDERABLES Final Result Performing Organization Address [facility] [address]/[facility] Phone Number INTERFACE SYSTEM [...] ORDERABLES Final Re sult Performing Organization Address [facility] [address]/[facility] Phone Number INTERFACE SYSTEM [...] ORDERABLES Final Re sult Performing Organization Address [facility] [address]/[facility] Phone Number INTERFACE SYSTEM Refer to clinic/hospital department * MAGNESIUM LEVEL (03/14/2006 4:37 AM CDT) MAGNESIUM 2.0 1.5 - 2.5 mg/dL INTERFACE SYSTEM 03/14/2006 4:37 AM CDT Rita Esqueda MD CHEMISTRY ORDERABLES Final Res ult Performing Organization Address [facility] Phone Number INTERFACE SYSTEM Refer [...] mmol/L INTERFACE SYSTEM 03/14/2006 4:[address] [facility] CHEMI[facility]Y ORDERABLES Final Res ult Performing Organization Address [facility] [address]/[facility] Phone Number INTERFACE SYSTEM Refer to clinic/hospital department * (ABNORMAL) C-REACTIVE PROTEIN (03/14/2006 4:37 AM CDT) CRP 4.1(H) 0.0 - 0.8 mg/dL INTERFACE SYSTEM 03/14/2006 4:37 AM CDT [facility] Z[facility] CHEMISTRY ORDERABLES Final Res ult Performing Organization Address [facility] [address]/[facility] Phone Number INTERFACE SYSTEM Refer to clinic/hospital department * VANCOMYCIN LEVEL TROUGH (03/13/2006 1:02 PM CDT) VANCOMYCIN, TROUGH 8.7 5.0 - 15.0 ug/mL INTERFACE SYSTEM Comment: Vancomycin Trough Toxic Level= >15.0 ug/mL 03/13/2006 1:02 PM CDT [facility] CHEMI[facility]Y ORDERABLES Final Res ult Performing Organization Address [facility] Phone Number INTERFACE SYSTEM Refer [...] ORDERABLES Final R esult Performing Organization Address [facility] [address]/[facility] Phone Number INTERFACE SYSTEM Refer to clinic/hospital department * C-REACTIVE PROTEIN, CSF (03/12/2006 3:10 PM CDT) CRP, CSF 0.15 mg/dL INTERFACE SYSTEM Comment: Note: New methodology using CSF CRP (highly sensitive) assay is effective 12/11/03. No reference range has been established for CSF CRP. 03/12/2006 3:10 PM CDT Alexa Dillon MD BODY FLUIDS AND STOOLS Final Result Performing Organization Address [facility] Phone Number INTERFACE SYSTEM Refer [...] AND STOOLS Final Result Performing Organization Address [facility] Phone Number INTERFACE SYSTEM Refer to clinic/hospital department * (ABNORMAL) TOTAL PROTEIN, CSF (03/12/2006 3:10 PM CDT) PROTEIN, CSF 365(H) 15 - 45 mg/dL INTERFACE SYSTEM Comment: New CSF Protein Quantitative Methodology - Note New Reference Range. bloody sample 03/12/2006 3:10 PM CDT Aman Gottlieb DO BODY FLUIDS AND STOOLS Final Result Performing Organization Address [facility] Phone Number INTERFACE SYSTEM Refer [...] PM and read back verified. RBC, CSF 236328(H) <=0 /uL INTERFACE SYSTEM 03/12/2006 3:10 PM CDT us Aman Gottlieb DO BODY FLUIDS AND STOOLS Final Result Performing Organization Address [facility] [address]/[facility] de Phone Number INTERFACE SYSTEM [...] HEMATOLOGY ORDERABLES Final Result Performing Organization Address [facility] [address]/[facility] de Phone Number INTERFACE SYSTEM [...] HEMATOLOGY ORDERABLES Final Result Performing Organization Address [facility] [address]/[facility] Phone Number INTERFACE SYSTEM [...] ORDERABLES Final R esult Performing Organization Address [facility] [address]/[facility] de Phone Number INTERFACE SYSTEM [...] HEMATOLOGY ORDERABLES Final Result Performing Organization Address City/[facility] [address]/[facility] de Phone Number INTERFACE SYSTEM [...] HEMATOLOGY ORDERABLES Final Result Performing Organization Address City/[facility] [address]/[facility] Co de Phone Number INTERFACE SYSTEM Refer to clinic/hospital department * (ABNORMAL) C-REACTIVE PROTEIN (03/11/2006 4:40 AM CDT) CRP 6.5(H) 0.0 - 0.8 mg/dL INTERFACE SYSTEM 03/11/2006 4:40 AM CDT Sushil Arroyo MD CHEMISTRY ORDERABLES Final R [facility] Performing Organization Address [facility] [address]/[facility] Phone Number INTERFACE SYSTEM [...] Arroyo MD CHEMISTRY ORDERABLES [facility] Per[facility] Organization Address [facility] [address]/[facility] Phone Number INTERFACE SYSTEM [...] HEMATOLOGY ORDERABLES Final Result Performing Organization Address [facility] [address]/[facility] Phone Number INTERFACE SYSTEM [...] ORDERABLES Final Resul t Performing Organization Address [facility] [address]/[facility] de Phone Number INTERFACE SYSTEM [...] HEMATOLOGY ORDERABLES Final Result Performing Organization Address City/[facility] [address]/[facility] de Phone Number INTERFACE SYSTEM [...] HEMATOLOGY ORDERABLES Final Result Performing Organization Address [facility] [address]/[facility] de Phone Number INTERFACE SYSTEM [...] ORDERABLES Final Res ult Performing Organization Address City/[facility] [address]/[facility] de Phone Number INTERFACE SYSTEM [...] ORDERABLES Final Res ult Performing Organization Address [facility] [address]/[facility] Phone Number INTERFACE SYSTEM [...] ORDERABLES Final Res ult Performing Organization Address [facility] [address]/[facility] Phone Number INTERFACE SYSTEM Refer to clinic/hospital department * (ABNORMAL) C-REACTIVE PROTEIN (03/08/2006 6:34 PM CDT) CRP 5.2(H) 0.0 - 0.8 mg/dL INTERFACE SYSTEM 03/08/2006 6:34 PM CDT us Keenan Mandujano MD CHEMISTRY ORDERABLES Final Resu lt Performing Organization Address [facility] [address]/[facility] Co md Phone Number INTERFACE SYSTEM Refer to clinic/hospital [...] URINE ORDERABLES Final Result Performing Organization Address [facility] [address]/[facility] Phone Number INTERFACE SYSTEM [...] HEMATOLOGY ORDERABLES Final Result Performing Organization Address [facility] [address]/[facility] Phone Number INTERFACE SYSTEM [...] ORDERABLES Final Resul t Performing Organization Address [facility] [address]/[facility] Phone Number INTERFACE SYSTEM [...] HEMATOLOGY ORDERABLES Final Result Performing Organization Address [facility] [address]/[facility] Phone Number INTERFACE SYSTEM [...] HEMATOLOGY ORDERABLES Final Result Performing Organization Address City/[facility] [address]/[facility] de Phone Number INTERFACE SYSTEM [...] ORDERABLES Final R esult Performing Organization Address City/[facility] [address]/[facility] de Phone Number INTERFACE SYSTEM [...] HEMATOLOGY ORDERABLES Final Result Performing Organization Address [facility] [address]/[facility] Phone Number INTERFACE SYSTEM [...] URINE ORDERABLES Final Result Performing Organization Address [facility] [address]/[facility] Phone Number INTERFACE SYSTEM [...] HEMATOLOGY ORDERABLES Final Result Performing Organization Address [facility] [address]/[facility] Phone Number INTERFACE SYSTEM [...] HEMATOLOGY ORDERABLES Final Result Performing Organization Address [facility] [address]/[facility] Phone Number INTERFACE SYSTEM [...] ORDERABLES Final R esult Performing Organization Address [facility] [address]/[facility] de Phone Number INTERFACE SYSTEM [...] HEMATOLOGY ORDERABLES Final Result Performing Organization Address [facility] [address]/[facility] Phone Number INTERFACE SYSTEM [...] HEMATOLOGY ORDERABLES Final Result Performing Organization Address City/[facility] [address]/[facility] Co de Phone Number INTERFACE [...] 12:4 4 PM CDT [facility] HEMATOLOGY ORDERABLES Final Re sult Performing Organization Address City/[facility] [address]/[facility] de Phone Number INTERFACE SYSTEM Refer to clinic/hospital department * C-REACTIVE PROTEIN (02/26/2006 12:44 PM CDT) CRP 0.2 0.0 - 0.8 mg/dL INTERFACE SYSTEM 02/26/2006 12:4 4 PM CD[facility] [employer] [facility] CHEMISTRY ORDERABLES Final Res ult Performing Organization Address [facility] [address]/[facility] de Phone Number INTERFACE SYSTEM [...] ORDERABLES Final Res ult Performing Organization Address [facility] [address]/[facility] Phone Number INTERFACE SYSTEM [...] ORDERABLES Final Resul t Performing Organization Address [facility] [address]/[facility] Phone Number INTERFACE SYSTEM [...] K/uL INTERFACE SYSTEM 02/25/2006 4:36 AM CDT [facility] HEMATOLOGY ORDERABLES Final Re sult Performing Organization Address [facility] [address]/[facility] de Phone Number INTERFACE SYSTEM [...] fL INTERFACE SYSTEM 02/25/2006 4:36 AM CDT [facility] HEMATOLOGY ORDERABLES Final Re sult Performing Organization Address [facility] [address]/[facility] Phone Number INTERFACE SYSTEM [...] mmol/L INTERFACE SYSTEM 02/25/2006 4:36 AM CDT [facility] CHEMISTRY ORDERABLES Final Res ult Performing Organization Address [facility] [address]/[facility] Phone Number INTERFACE SYSTEM Refer to clinic/hospital department * C-REACTIVE PROTEIN (02/25/2006 4:36 AM CDT) CRP 0.2 0.0 - 0.8 mg/dL INTERFACE SYSTEM 02/25/2006 4:36 AM CDT [facility] CHEMISTRY ORDERABLES Final Res ult Performing Organization Address [facility] [address]/[facility] Phone Number INTERFACE SYSTEM [...] URINE ORDERABLES Final Result Performing Organization Address [facility] [address]/[facility] Phone Number INTERFACE SYSTEM [...] HEMATOLOGY ORDERABLES Final Result Performing Organization Address [facility] Phone Number INTERFACE SYSTEM Refer to [...] HEMATOLOGY ORDERABLES Final Result Performing Organization Address [facility] [address]/[facility] Phone Number INTERFACE SYSTEM [...] ORDERABLES Final Resul t Performing Organization Address [facility] [address]/[facility] Phone Number INTERFACE SYSTEM [...] HEMATOLOGY ORDERABLES Final Result Performing Organization Address City/[facility] [address]/[facility] Phone Number INTERFACE SYSTEM [...] HEMATOLOGY ORDERABLES Final Result Performing Organization Address [facility] [address]/[facility] de Phone Number INTERFACE SYSTEM [...] ORDERABLES Final Resul t Performing Organization Address [facility] [address]/[facility] de Phone Number INTERFACE SYSTEM [...] ORDERABLES Final Res ult Performing Organization Address [facility] Phone Number INTERFACE SYSTEM Refer to [...] ORDERABLES Final Res ult Performing Organization Address [facility] [address]/[facility] Phone Number INTERFACE SYSTEM [...] HEMATOLOGY ORDERABLES Final Result Performing Organization Address [facility] [address]/[facility] de Phone Number INTERFACE SYSTEM [...] ORDERABLES Final Res ult Performing Organization Address [facility] [address]/[facility] Co de Phone Number INTERFACE [...] ORDERABLES Final Res ult Performing Organization Address City/[facility] [address]/[facility] Co de Phone Number INTERFACE [...] HEMATOLOGY ORDERABLES Final Result Performing Organization Address City/[facility] [address]/ZIP Co de Phone Number INTERFACE SYSTEM Refer [...] ORDERABLES Final Resul t Performing Organization Address [facility] [address]/[facility] Phone Number INTERFACE SYSTEM [...] HEMATOLOGY ORDERABLES Final Result Performing Organization Address [facility] [address]/[facility] Phone Number INTERFACE SYSTEM [...] HEMATOLOGY ORDERABLES Final Result Performing Organization Address [facility] [address]/[facility] de Phone Number INTERFACE SYSTEM [...] ORDERABLES Final R esult Performing Organization Address City/[facility] [address]/ZIP Co de Phone Number INTERFACE SYSTEM Refer [...] HEMATOLOGY ORDERABLES Final Result Performing Organization Address City/State/[facility] Co de Phone Number INTERFACE [...] ORDERABLES Final Resu lt Performing Organization Address City/[facility] [address]/[facility] de Phone Number INTERFACE SYSTEM [...] ORDERABLES Final Res ult Performing Organization Address [facility] [address]/[facility] de Phone Number INTERFACE SYSTEM [...] ORDERABLES Final Res ult Performing Organization Address [facility] [address]/[facility] de Phone Number INTERFACE SYSTEM [...] ORDERABLES Final Res ult Performing Organization Address [facility] [address]/[facility] Phone Number INTERFACE SYSTEM [...] ORDERABLES Final Res t Performing Organization Address [facility] [address]/[facility] Phone Number INTERFACE SYSTEM [...] been established. 01/28/2006 4:52 AM CDT Result [facility] Keenan Mandujano MD HEMATOLOGY ORDERABLES Final [facility] Performing Organization Address [facility] [address]/[facility] Phone Number INTERFACE SYSTEM [...] ORDERABLES Final Res ult Performing Organization Address [facility] [address]/[facility] Phone Number INTERFACE SYSTEM [...] ORDERABLES Final Res ult Performing Organization Address [facility] [address]/[facility] Phone Number INTERFACE SYSTEM [...] ORDERABLES Final Res ult Performing Organization Address [facility] Phone Number INTERFACE SYSTEM Refer to [...] been established. 01/23/2006 4:57 AM CDT Result [facility] Keenan Mandujano MD HEMATOLOGY ORDERABLES Final Res ult Performing Organization Address [facility] [address]/[facility] Phone Number INTERFACE SYSTEM [...] ORDERABLES Final Res ult Performing Organization Address [facility] [address]/[facility] Phone Number INTERFACE SYSTEM [...] Resu lt Performing Organization Address [facility] [address]/[facility] Phone Number INTERFACE SYSTEM [...] ORDERABLES Final Res ult Performing Organization Address [facility] [address]/[facility] Phone Number INTERFACE SYSTEM [...] Resu lt Performing Organization Address [facility] [address]/[facility] Phone Number INTERFACE SYSTEM [...] ORDERABLES Final Resu lt Performing Organization Address City/[facility] [address]/[facility] Co de Phone Number INTERFACE [...] HEMATOLOGY ORDERABLES Final Result Performing Organization Address City/[facility] [address]/[facility] Co de Phone Number INTERFACE [...] ORDERABLES Final R esult Performing Organization Address City/[facility] [address]/[facility] Co de Phone Number INTERFACE [...] ORDERABLES Final Resul t Performing Organization Address City/[facility] [address]/ZIP Co de Phone Number INTERFACE SYSTEM Refer to clinic/hospital department documented in this encounter Visit Diagnoses Diagnosis Other specified rehabilitation procedure(V57.89)- Primary Other specified rehabilitation procedure documented in this encounter
--- OUTSIDE RECORDS SUMMARY | 2025-06-20 17:07 | XMS_ITS | Clinical Summary ---
Author Organization [email or web address] Address [address] [place] [address] Care Team Providers Care Timing Inspector Name Role Phone Rod Strauss MD Primary Care Provider [phone] Source Comments [email or web address],non-owned Affiliates and Associated Physician Practices is amultiple site organization consisting of ambulatory clinics and hospital sitesin [place], [place], [place] and [place]. This disclosure is being madepursuant to the Care Everywhere program and may not contain all information available regarding this patient. Last updated 18.[email or web address] Allergies Active Allergy Reactions Criticality Noted Date [...] MOHINI of MV. 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 Follows with [facility]. 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 Urine cx from [facility] on 05/04 also growing pseudomonas, [...] to reach son and obtained collateral from [facility] - CT Head today. 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 Patient declined 05/31/2024 [facility] [place] of Occupat ional Health - Occupational Stress [...] any time in the past 12 m [facility], were you homeless or living in a penitentiary (including now)? Patient declined 05/31/2024 Sex and Gender Information Value Date Recorded Sex Assigned at Not on file Legal Sex Male 5:23 PM CHEMIC MANGLER Gender Identity Not on file Sexual Orientation Not on file Last Filed Vital Signs Vital Sign Reading Time Taken Comments Blood Pressure 135/77 06/15/2024 11:48 AM CHEMIC MANGLER Pulse 74 06/15/2024 11:48 AM CHEMIC MANGLER Temperature 36.4 C (97.6 F) 06/15/2024 8:35 AM CHEMIC MANGLER Respiratory Rate 16 06/15/2024 11:48 AM CHEMIC MANGLER Oxygen Saturation 97% 06/15/2024 11:48 AM CHEMIC MANGLER Inhaled Oxygen Concentration 40% 06/04/2024 9 :43 AM CHEMIC MANGLER Weight 88.5 kg (195 lb) 06/15/2024 8:35 AM CHEMIC MANGLER Height 190.5 cm (6' 3) 06/15/2024 8:35 AM CHEMIC MANGLER Body Mass Index 24.37 06/15/2024 8:35 AM CHEMIC MANGLER Plan of Treatment Health Maintenance Due Date [...] Additional history exists INFLUENZA VACCINE (#1) 2025 , 04/17/2020, 04/04/2020, Additional history exists HEPATITIS C [...] this topic Medical Devices Implanted Type Area Bistro Server Device Identifier Shelf Expiration Date Model / Serial / Lot Synchromed Iii Pump Implanted:Qty: 1 on 06/04/2024 by Deshawn Schultz MD at [facility] Left: Abdomen [employer] 08/18/2025 8667-40 / [id number] / Ascenda Implanted:Qty: 1 on 06/04/2024 by Deshawn Schultz MD at 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 Vancomycin Trough 21.0(H) 10.0 - 20.0 ug/mL 06/05/2025 10:47 AM CHEMIC MANGLER [facility] Blood BLOOD SPECIMEN / Unknown Venipuncture / Unknown 06/05/2025 8:00 AM CHEMIC MANGLER 06/05/2025 10:25 AM CHEMIC MANGLER Enedinaalbino Josse LAB - CHEMISTRY ORDERABLES Final Result Performing Organization Address [facility] Co de Phone Number [facility] [address] [place] [address] * HEPATITIS C AB SCREEN RFLX NAAT QUANT (06/06/2024 11:49 AM CHEMIC MANGLER) Hepatitis C Antibody Non-react lottie Non-reac tive 06/06/2024 1:01 PM CHEMIC MANGLER [facility] Comment:Hepatitis C Antibody screen indicates no serologic evidence of past or current infection with Hepatitis C Virus. Patients with unexplained liver disease who are immunocompromised or suspected of having acute Hepatitis C infection may benefit from Nucleic Acid Test (NEIDA) for Hepatitis C Viral RNA to confirm Hepatitis C status. Blood BLOOD SPECIMEN / Unknown Lab Venipuncture / Unknown 06/06/2024 11:49 AM CHEMIC MANGLER 06/06/2024 12:05 PM CHEMIC MANGLER Salena Griffin APRN-PRESS OPERATOR PRINTING LAB - CHEMISTRY ORDERABLES F inal Result Performing Organization Address City/[facility]/ZIP Co de Phone Number [address] [address], [facility] [phone] from Last 3 Months or Most Recently Relevant to Health Maintenance Additional Health Concerns Infection Onset Date Last Indicated ESBL GNR 06/01/2024 06/01/[address] [place] [address] [facility] MEDICARE Advance Directives * Full Code (Latest Code Status on File) Date Activated Date Inactivated Comments 05/31/2024 11:27 PM 06/09/2024 8:37 PM Care Teams Timing Inspector Relationship Specialty Start Date End Date Rod Strauss MD [address] [place] [id number] PCP - General Internal Medicine 06/15/24
--- OUTSIDE RECORDS SUMMARY | 2025-06-20 17:07 | XMS_ITS | Encounter Summary ---
Author Organization [facility] Address [address] [place] [address] Care Team Providers Care Partnership Manager Name Role Phone Rod Strauss MD Primary Care Provider [phone] Encounter Details Date Type Department Care Team (Late st Contact Info) Description 06/05/2025 Lab Requisition [facility] [address] [place] [address] Shant Loaiza [phone] [facility] 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 Patient declined 05/31/2024 [facility] [place] of Occupat ional Health - Occupational Stress [...] any time in the past 12 m [facility], were you homeless or living in a prison (including now)? Patient declined 05/31/2024 Sex and Gender Information Value Date Recorded Sex Assigned at Not on file Legal Sex Male 5:23 PM PATTERN WEAVER Gender Identity Not on file Sexual Orientation Not on file documented as of this encounter Functional Status * Is person deaf or have serious hearing difficulty? Answer Date of Assessment Author Yes 06/01/2024 12:21 PM PATTERN WEAVER Princess Ohara RN * Is person blind or have serious difficulty seeing? Answer Date of Assessment Author No 06/01/2024 12:21 PM PATTERN WEAVER Princess Ohara RN * Does person have serious difficulty walking/climbing stairs? Answer Date of Assessment Author Yes 06/01/2024 12:21 PM PATTERN WEAVER Princess Ohara RN * Does person have difficulty dressing/bathing? Answer Date of Assessment Author Yes 06/01/2024 12:21 PM PATTERN WEAVER Princess Ohara RN * Does person have difficulty doing errands alone? Answer Date of Assessment Author Yes 06/01/2024 12:21 PM PATTERN WEAVER Princess Ohara RN documented as of this encounter Mental Status * Does person have difficulty concentrating/remembering/making decisions? 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 documented in this encounter Results * (ABNORMAL) VANCOMYCIN LEVEL TROUGH (06/05/2025 8:00 AM PATTERN WEAVER) Vancomycin Trough 21.0(H) 10.0 - 20.0 ug/mL 06/05/2025 10:47 AM PATTERN WEAVER [facility] Blood BLOOD SPECIMEN / Unknown Venipuncture / Unknown 06/05/2025 8:00 AM PATTERN WEAVER 06/05/2025 10:25 AM PATTERN WEAVER Shant Loaiza LAB - CHEMISTRY ORDERABLES Final Result Performing Organization Address City/State/[facility] Co de Phone Number [facility] [address] [place], [place] [id number] documented in this encounter Visit Diagnoses Diagnosis 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
--- OUTSIDE RECORDS SUMMARY | 2025-06-20 17:07 | XMS_ITS | Clinical Summary ---
Author Organization [facility] Address [address] [place] [address] Care Team Providers Care R Programmer Name Role Phone Unavailable Primary Care [...] daily. 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 Baclofen pump rx'd by the [facility]. Iron deficiency anemia, unspecified 10/26/2012 Gastric [...] Plan: Uses wheelchair at baseline. Resides at [facility]. Has baclofen pump/neurostimulator in place. C/b [...] on file Legal Sex Male 3:[address] Gender Identity Not on file Sexual Orientation [...] Colonography Q 5 years Discontinued Insurance [place] [address] [place] [address] MEDICARE MANAGED CARE
[2025-06-20] MEDS: CLINDAMYCIN 900 MG/D5W 50 ML 900 MG/50 ML PIGGYBACK 50 MG IVPB (17:28)
[2025-06-20] MEDS: VANCOMYCIN 1,750 MG/NS 500 ML 1,750 MG/500 ML BAG 250 MG IVPB (18:24)
--- NOTE | 2025-06-20 20:52 | PC.NURSE ---
Pt placed in hospital bed at this time.
--- NOTE | 2025-06-20 21:02 | PC.NURSE ---
Pt linens were changed after pt had a BM. Pt site was cleaned and new diaper was placed.
[2025-06-20] MEDS: MEROPENEM 1 GM in SODIUM CHLORIDE 0.9% IV 100 ML 200 ML IVPB (21:04)
--- NOTE | 2025-06-20 22:20 | PC.NURSE ---
RN spoke with Margaret from [facility] transfer center and gave update on pt. She verbally states they will call back in the morning for an update.
[2025-06-20] MEDS: HYDROcodone/acetaminophen (*CRX) 5-325 MG TABLET 1 TAB PO (22:56)
--- NOTE | 2025-06-20 23:38 | PC.NURSE ---
Rn cleaned pt wound sites on bottom due to stool getting on the dressing. Labels were dated and changed. Wound sites were cleaned. Pt placed in new linen and diaper. Pt repositioned.
[2025-06-21] VITALS (41 sets, daily range): BP systolic 95–155; BP diastolic 45–85; PULSE 90–119; RESP 8–25; TEMP 36.5–37.1; O2SAT 87–98
[2025-06-21] MEDS: CLINDAMYCIN 900 MG/D5W 50 ML 900 MG/50 ML PIGGYBACK 50 MG IVPB ×3 (00:24→16:15)
[2025-06-21] MEDS: HYDROmorphone HCL INJ (*CRX) 1 MG/ML SYR 0.5 MG IV PUSH (00:25)
--- NOTE | 2025-06-21 01:38 | PC.NURSE ---
pt oxygen was dropping to 87%-89% on RA when fallen asleep. RN placed pt on 1 L NC and pt o2 is 93% at this time.
[2025-06-21] MEDS: MEROPENEM 1 GM in SODIUM CHLORIDE 0.9% IV 100 ML 200 ML IVPB ×3 (05:23→21:58)
[2025-06-21 05:34] LABS: Hematocrit 26.5 % (42.0-52.0); Hemoglobin 8.1 g/dL (14.0-18.0); Immature Granulocyte Percent A 0.3 % (0-0.5); Lymphocytes Absolute Auto 0.65 K/mm3 (0.9-3.2); Mean Corpuscular HGB Conc 30.6 g/dl (32-36); Mean Corpuscular Hemoglobin 26.6 pg (26-34); Mean Corpuscular Volume 87.2 fl (80-100); Nucleated Red Blood Cells Absolute Auto 0.000 K/mm3 (0.0-0.012); Nucleated Red Blood Cells Perc 0.0 % (0.0-0.2); Platelet Count Result 332 k/mm3 (150-375); Red Blood Count 3.04 M/mm3 (4.6-6.20); White Blood Count 8.0 K/mm3 (4.5-10.0)
[2025-06-21 05:49] LABS: Alanine Aminotransferase 9 U/L (6-50); Albumin Level 2.7 g/dL (3.5-5.1); Alkaline Phosphatase 96 U/L (38-126); Anion Gap 8 mmol/L (4-12); Aspartate Amino Transferase 24 U/L (17-59); Bilirubin,Total 0.4 mg/dL (0.2-1.3); Blood Urea Nitrogen 24 mg/dL (9-20); Calcium 8.1 mg/dL (8.4-10.2); Carbon Dioxide 26 mmol/L (22-30); Chloride 103 mmol/L (98-107); Estimated CRCL calculation 68 ml/min; Estimated Glomerular Filt Rate > 60; Glucose 92 mg/dL (65-110); Potassium 3.1 mmol/L (3.4-5.0); Sodium 137 mmol/L (137-145); Total Protein 5.8 g/dL (6.3-8.2)
--- NOTE | 2025-06-21 06:41 | PC.NURSE ---
0548: ED pullman conductor called C transfer for an update on pt. They verbally state that pt is still on waitlist at this time.
--- NOTE | 2025-06-21 10:29 | PC.NURSE ---
[facility] Transfer center called for update on pt status. She states pt is still on waitlist and will call back once a bed is available.
[2025-06-21] MEDS: LACTATED RINGERS 1,000 ML 125 ML IV CONT (12:42)
[2025-06-21] MEDS: VANCOMYCIN 1,250 MG/NS 250 ML 1,250 MG/250 ML BAG 166.67 MG IVPB (12:45)
[2025-06-21] MEDS: POTASSIUM CHLORIDE 20 MEQ PACKET (FOR LIQUID) 40 MEQ PO (14:31)
[2025-06-21] MEDS: HYDROcodone/acetaminophen (*CRX) 5-325 MG TABLET 1 TAB PO (14:31)
[2025-06-21] MEDS: oxyCODONE HCL (*CRX) 5 MG TAB IR PO ×2 (17:53→22:02)
--- NOTE | 2025-06-21 18:02 | WPCEDHO ---
ED Hand Off Checklist All vitals saved:yes IV Site documented:yes All med administrations documented:yes Triage Note Triage Note Patient to the ED via EMS with 06/20/25 12:12 complaints of pain all over. Patient states pain in his back is worse today. Allergies piperacillin Allergy (Unknown, Verified 06/20/25 12:23) Unknown sulfamethoxazole (From Bactrim) Allergy (Unknown, Verified 06/20/25 12:23) Unknown tazobactam Allergy (Unknown, Verified 06/20/25 12:23) Unknown tizanidine Allergy (Unknown, Verified 06/20/25 12:23) Unknown trimethoprim (From Bactrim) Allergy (Unknown, Verified 06/20/25 12:23) Unknown venlafaxine Allergy (Unknown, Verified 06/20/25 12:23) Unknown Family History (Last Reviewed 06/20/25 @ 14:37 by Masoud Gutierrez DO) Mother Throat cancer Sibling Cancer Active Medications including assessments/comments Meropenem 1 gm/ Sodium (Chloride) 100 mls @ 200 mls/hr IVPB Q8HR NASRIN Last Infusion: 06/21/25 15:04 Dose: Infused Documented By: TLB Infusion/Titration Document 06/21/25 15:04 TLB (Rec: 06/21/25 15:04 TLB [id number]) Intake Intake 100 Cumulative Intake ( 100 bag) Cumulative Intake ( 200 Rx) Container Volume 0 Waste Amount 0 Dosing Infusion Rate 0 Cumulative Dose 2 Increase/Decrease Infused Elapsed Time Elapsed Time ( 1h 5m minutes) Admin: 06/21/25 14:32 Dose: 200 mls/hr Documented By: TLB Infusion/Titration Document 06/21/25 14:32 TLB (Rec: 06/21/25 14:35 TLB [id number]) Intake IV Site Peripheral Access Left Forearm Cumulative Intake ( 100 Rx) Container Volume 100 Waste Amount 0 Dosing Infusion Rate 200 Cumulative Dose 1 Increase/Decrease Started/Running Elapsed Time Elapsed Time ( 33m minutes) Infusion: 06/21/25 05:56 Dose: Infused Documented By: KRZ Infusion/Titration Document 06/21/25 05:56 KRZ (Rec: 06/21/25 05:56 KRZ [id number]) Intake Intake 100 Cumulative Intake ( 100 bag) Cumulative Intake ( 100 Rx) Container Volume 0 Waste Amount 0 Dosing Infusion Rate 0 Cumulative Dose 1 Increase/Decrease Infused Elapsed Time Elapsed Time ( 33m minutes) Admin: 06/21/25 05:23 Dose: 200 mls/hr Documented By: KRZ Infusion/Titration Document 06/21/25 05:23 KRZ (Rec: 06/21/25 05:23 KRZ [id number]) Intake IV Site Peripheral Access Left Forearm Container Volume 100 Waste Amount 0 Dosing Infusion Rate 200 Increase/Decrease Started Elapsed Time Elapsed Time ( 0m minutes) Clindamycin Phosphate (Cleocin 900 Mg/D5w 50 Ml) 900 mg in 50 mls @ 50 mls/hr IVPB Q8H NASRIN Last Infusion: 06/21/25 17:47 Dose: Infused Documented By: TLB Infusion/Titration Document 06/21/25 17:47 TLB (Rec: 06/21/25 17:47 TLB [id number]) Intake Intake 50 Cumulative Intake ( 50 bag) Cumulative Intake ( 150 Rx) Container Volume 0 Waste Amount 0 Dosing Infusion Rate 0 Cumulative Dose 2700 Increase/Decrease Infused Elapsed Time Elapsed Time ( 3h 35m minutes) Admin: 06/21/25 16:15 Dose: 50 mls/hr Documented By: TLB Infusion/Titration Document 06/21/25 16:15 TLB (Rec: 06/21/25 16:30 TLB [id number]) Intake IV Site Peripheral Access Left Forearm Cumulative Intake ( 100 Rx) Container Volume 50 Waste Amount 0 Dosing Infusion Rate 50 Cumulative Dose 1800 Increase/Decrease Started/Running Elapsed Time Elapsed Time ( 2h 3m minutes) Infusion: 06/21/25 09:09 Dose: Infused Documented By: MLI Infusion/Titration Document 06/21/25 09:09 MLI (Rec: 06/21/25 09:09 MLI [id number]) Intake Intake 50 Cumulative Intake ( 50 bag) Cumulative Intake ( 100 Rx) Container Volume 0 Waste Amount 0 Dosing Infusion Rate 0 Cumulative Dose 1800 Increase/Decrease Infused Elapsed Time Elapsed Time ( 2h 3m minutes) Admin: 06/21/25 08:00 Dose: 50 mls/hr Documented By: MLI Infusion/Titration Document 06/21/25 08:00 MLI (Rec: 06/21/25 08:00 MLI [id number]) Intake IV Site Peripheral Access Left Forearm Cumulative Intake ( 50 Rx) Container Volume 50 Waste Amount 0 Dosing Infusion Rate 50 Cumulative Dose 900 Increase/Decrease Started/Running Elapsed Time Elapsed Time ( 54m minutes) Infusion: 06/21/25 01:18 Dose: Infused Documented By: KRZ Infusion/Titration Document 06/21/25 01:18 KRZ (Rec: 06/21/25 01:18 KRZ [id number]) Intake Intake 50 Cumulative Intake ( 50 bag) Cumulative Intake ( 50 Rx) Container Volume 0 Waste Amount 0 Dosing Infusion Rate 0 Cumulative Dose 900 Increase/Decrease Infused Elapsed Time Elapsed Time ( 54m minutes) Admin: 06/21/25 00:24 Dose: 50 mls/hr Documented By: KRZ Infusion/Titration Document 06/21/25 00:24 KRZ (Rec: 06/21/25 00:24 KRZ [id number]) Intake IV Site Peripheral Access Left Forearm Container Volume 50 Waste Amount 0 Dosing Infusion Rate 50 Increase/Decrease Started Elapsed Time Elapsed Time ( 0m minutes) Vancomycin HCl (Vancomycin 1,250 Mg/Ns 250 Ml) 1,250 mg in 250 mls @ 166.667 mls/hr IVPB Q18H NASRIN Last Infusion: 06/21/25 14:23 Dose: Infused Documented By: TLB Infusion/Titration Document 06/21/25 14:23 TLB (Rec: 06/21/25 14:23 TLB [id number]) Intake Intake 250 Cumulative Intake ( 250 bag) Cumulative Intake ( 250 Rx) Container Volume 0 Waste Amount 0 Dosing Infusion Rate 0 Cumulative Dose 1250 Increase/Decrease Infused Elapsed Time Elapsed Time ( 1h 38m minutes) Admin: 06/21/25 12:45 Dose: 166.67 mls/hr Documented By: TLB Infusion/Titration Document 06/21/25 12:45 TLB (Rec: 06/21/25 12:45 TLB [id number]) Intake IV Site Peripheral Access Left Forearm Container Volume 250 Waste Amount 0 Dosing Infusion Rate 166.67 Increase/Decrease Started Elapsed Time Elapsed Time ( 0m minutes) Lactated Ringer's (Lr - Lactated Ringers Iv) 1,000 mls @ 125 mls/hr IV CONT .Q8H STA Stop: 06/21/25 20:03 Last Admin: 06/21/25 12:42 Dose: 125 mls/hr Documented By: TLB Infusion/Titration Document 06/21/25 12:42 TLB (Rec: 06/21/25 12:42 TLB [id number]) Intake IV Site Peripheral Access Left Forearm Container Volume 1,000 Waste Amount 0 Dosing Infusion Rate 125 Cumulative Dose Not Applicable Increase/Decrease Started Elapsed Time Elapsed Time ( 0m minutes) Oxycodone HCl (Oxycodone Hcl (*Crx) 5 Mg Tab Ir) 5 mg PO Q4H PRN PRN Reason: Pain Rated 7-10 Last Admin: 06/21/25 17:53 Dose: 5 mg Documented By: MAURO MAR Pain Assessment Document 06/21/25 17:53 MAURO (Rec: 06/21/25 17:53 MAURO [id number]) Pain Evaluation Pain Evaluation Assessment Pain Scale Pain Scale Used Numeric (1 - 10) Order Parameters Order Parameters for Pain Level 7-10 (Severe) Administering this Pain Med Self Report Pain Assessment Reported Pain Level 9 Pain Location Lower Modifier Pain Location Back Pain Description Aching,Throbbing Pain Frequency Chronic Pain Behaviors Grimacing Pain Score Pain Score 9: Self Report Administered/Completed Medications Discontinued Medications Acetaminophen (Acetaminophen Elixir 325 Mg/10.15 Ml Udc) 650 mg PO ONCE ONE Stop: 06/20/25 14:36 Last Admin: 06/20/25 14:53 Dose: 650 mg Documented By: SHANNAN Hydrocodone Bitart/Acetaminophen (Hydrocodone/Acetaminophen (*Crx) 5-325 Mg Tablet) 1 tab PO ONCE STA Stop: 06/20/25 22:07 Last Admin: 06/20/25 22:56 Dose: 1 tab Documented By: PAMELA Hydrocodone Bitart/Acetaminophen (Hydrocodone/Acetaminophen (*Crx) 5-325 Mg Tablet) 1 tab PO ONCE STA Stop: 06/21/25 13:11 Last Admin: 06/21/25 14:31 Dose: 1 tab Documented By: MAURO Cyclobenzaprine HCl (Cyclobenzaprine Hcl 10 Mg Tablet) 10 mg PO ONCE ONE Stop: 06/20/25 14:36 Last Admin: 06/20/25 14:53 Dose: 10 mg Documented By: SHANNAN Cyclobenzaprine HCl (Cyclobenzaprine Hcl 10 Mg Tablet) 10 mg PO ONCE ONE Stop: 06/20/25 22:07 Last Admin: 06/20/25 22:56 Dose: 10 mg Documented By: PAMELA Hydromorphone HCl (Hydromorphone Hcl Inj (*Crx) 1 Mg/Ml Syr) 0.5 mg IV PUSH ONCE STA Stop: 06/21/25 00:01 Last Admin: 06/21/25 00:25 Dose: 0.5 mg Documented By: PAMELA Sodium Chloride (Normal Saline Iv) 1,000 mls @ 999 mls/hr IV CONT .Q1H1M STA Stop: 06/20/25 14:22 Last Infusion: 06/20/25 17:32 Dose: Infused Documented By: Admin: 06/20/25 14:50 Dose: 999 mls/hr Documented By: SHANNAN Clindamycin Phosphate (Cleocin 900 Mg/D5w 50 Ml) 900 mg in 50 mls @ 50 mls/hr IVPB ONCE STA Stop: 06/20/25 17:41 Last Infusion: 06/20/25 18:23 Dose: Infused Documented By: Admin: 06/20/25 17:28 Dose: 50 mls/hr Documented By: SHANNAN Meropenem 1 gm/ Sodium (Chloride) 100 mls @ 200 mls/hr IVPB ONCE STA Stop: 06/20/25 17:11 Last Infusion: 06/20/25 22:01 Dose: Infused Documented By: Admin: 06/20/25 21:04 Dose: 200 mls/hr Documented By: PAMELA Vancomycin HCl (Vancomycin 1,750 Mg/Ns 500 Ml) 1,750 mg in 500 mls @ 250 mls/hr IVPB ONCE ONE Stop: 06/20/25 18:59 Last Infusion: 06/20/25 20:51 Dose: Infused Documented By: Admin: 06/20/25 18:24 Dose: 250 mls/hr Documented By: SHANNAN Sodium Chloride (Normal Saline Iv) Confirm Administered Dose 100 mls @ as directed .ROUTE .STK-MED ONE Stop: 06/20/25 20:55 Last Admin: 06/20/25 21:05 Dose: Not Given Documented By: PAMELA Non-Admin Reason: Duplicate Dose Lidocaine (Lidocaine 5% Patch) 1 patch TRANSDERM ONCE STA Stop: 06/20/25 14:36 Last Admin: 06/20/25 14:55 Dose: 1 patch Documented By: SHANNAN Meropenem (Meropenem 1 Gm Vial) Confirm Administered Dose 1 gm .ROUTE .STK-MED ONE Stop: 06/20/25 20:55 Last Admin: 06/20/25 21:05 Dose: Not Given Documented By: PAMELA Non-Admin Reason: Duplicate Dose Morphine Sulfate (Morphine Sulfate (*Crx) 4 Mg/Ml Inj) 4 mg IV PUSH ONCE STA Stop: 06/20/25 16:21 Last Admin: 06/20/25 17:00 Dose: 4 mg Documented By: LILIBETH Morphine Sulfate (Morphine Sulfate (*Crx) 4 Mg/Ml Inj) 4 mg IV PUSH ONCE STA Stop: 06/20/25 22:07 Last Admin: 06/20/25 22:56 Dose: 4 mg Documented By: PAMELA Potassium Chloride (Potassium Chloride 20 Meq Er Tablet) 40 meq PO ONCE STA Stop: 06/21/25 12:05 Last Admin: 06/21/25 12:47 Dose: Not Given Documented By: MAURO Non-Admin Reason: Order Discontinued Potassium Chloride (Potassium Chloride 20 Meq Packet (For Liquid)) 40 meq PO ONCE STA Stop: 06/21/25 12:49 Last Admin: 06/21/25 14:31 Dose: 40 meq Documented By: MAURO Notes 06/21/25 10:29 Nurse Note by Evelyn Pan [facility] Transfer center called for update on pt status. She states pt is still on waitlist and will call back once a bed is available. Initialized on 06/21/25 10:29 - END OF NOTE 06/21/25 06:41 Nurse Note by Alicia De Leon [id number]: ED dental secretary called [facility] transfer for an update on pt. They verbally state that pt is still on waitlist at this time. Initialized on 06/21/25 06:41 - END OF NOTE 06/21/25 01:38 Nurse Note by Alicia De Leon pt oxygen was dropping to 87%-89% on RA when fallen asleep. RN placed pt on 1 L NC and pt o2 is 93% at this time. Initialized on 06/21/25 01:38 - END OF NOTE 06/20/25 23:38 Nurse Note by Alicia De Leon Rn cleaned pt wound sites on bottom due to stool getting on the dressing. Labels were dated and changed. Wound sites were cleaned. Pt placed in new linen and diaper. Pt repositioned. Initialized on 06/20/25 23:38 - END OF NOTE 06/20/25 22:20 Nurse Note by Alicia De Leon RN spoke with Margaret from [facility] transfer center and gave update on pt. She verbally states they will call back in the morning for an update. Initialized on 06/20/25 22:20 - END OF NOTE 06/20/25 21:02 Nurse Note by Alicia De Leon Pt linens were changed after pt had a BM. Pt site was cleaned and new diaper was placed. Initialized on 06/20/25 21:02 - END OF NOTE 06/20/25 20:52 Nurse Note by Alicia De Leon Pt placed in hospital bed at this time. Initialized on 06/20/25 20:52 - END OF NOTE Interventions/Assessments General Assessment Start: 06/20/25 12:04 Freq: Status: Active Protocol: Document 06/20/25 14:34 CMM (Rec: 06/20/25 14:35 CMM [id number]) GA Neurological Assessment Neurological Yes Assessment WNL Level of Alert Consciousness Arousable to Verbal Orientation Oriented to Person,Oriented to Place,Oriented to Time Behavior Cooperative Memory Description Intact GA Respiratory Assessment Symptoms None Cough Description None Oxygen Delivery Room Air Method GA Gastrointestinal Assessment Gastrointestinal Yes Assessment WNL GA Genitourinary Assessment Genitourinary WNL Parameters GA Integumentary Assessment Integumentary Yes Assessment WNL IV / Saline Lock, Insert Start: 06/20/25 12:04 Freq: Status: Active Protocol: Document 06/20/25 14:35 CMM (Rec: 06/20/25 14:35 CMM [id number]) IV Assessment Peripheral Access Left Forearm IV Catheter Access Initiated IV Insertion Date 06/20/25 IV Insertion Time 14:35 Catheter Gauge 20 IV Insertion 1 Attempts IV Site Assessment WNL IV Care and WNL Maintenance Last Vital Signs Temperature 98.7 F 06/21/25 16:01 Pulse Rate 97 06/21/25 18:00 Respiratory Rate 12 06/21/25 18:00 Pulse Oximetry 90 06/21/25 18:00 Blood Pressure 117/62 06/21/25 18:00 Blood Pressure Mean 77 06/21/25 18:00 Blood Pressure Position Supine 06/20/25 18:24 Oxygen Delivery Room Air 06/21/25 08:01 Oxygen Flow Rate 2 06/21/25 01:48 Weight 71.9 kg 06/20/25 12:12 Last Result - Abnormals Only WBC 10.2 K/mm3 (4.5-10.0) H 06/20/25 14:39 RBC 3.04 M/mm3 (4.6-6.20) L 06/21/25 05:27 Hgb 8.1 g/dL (14.0-18.0) L 06/21/25 05:27 Hct 26.5 % (42.0-52.0) L 06/21/25 05:27 MCHC 30.6 g/dl (32-36) L 06/21/25 05:27 RDW 17.2 % (11.5-14.5) H 06/21/25 05:27 Plt Count 402 k/mm3 (150-375) H 06/20/25 14:39 Neut % (Auto) 76.6 % (45.5-73.1) H 06/20/25 14:39 Lymph % (Auto) 8.2 % (18.3-44.2) L 06/21/25 05:27 [place] % (Auto) 15.3 % (2.6-8.5) H 06/21/25 05:27 Lymph # (Auto) 0.65 K/mm3 (0.9-3.2) L 06/21/25 05:27 [place] # (Auto) 1.2 K/mm3 (0.1-0.6) H 06/21/25 05:27 Abs Immat Gran (auto) 0.04 K/mm3 (0.00-0.031) H 06/20/25 14:39 Absolute Neuts (auto) 7.8 K/mm3 (1.3-6.7) H 06/20/25 14:39 Sodium 135 mmol/L (137-145) L 06/20/25 14:39 Potassium 3.1 mmol/L (3.4-5.0) L 06/21/25 05:27 BUN 24 mg/dL (9-20) H 06/21/25 05:27 Glucose 113 mg/dL (65-110) H 06/20/25 14:39 Lactic Acid 0.6 mmol/L (0.7-2.0) L 06/20/25 17:11 Calcium 8.1 mg/dL (8.4-10.2) L 06/21/25 05:27 Total Protein 5.8 g/dL (6.3-8.2) L 06/21/25 05:27 Albumin 2.7 g/dL (3.5-5.1) L 06/21/25 05:27 Urine Appearance Turbid (Clear) H 06/20/25 15:33 Urine Protein 1+ mg/dL (Negative) H 06/20/25 15:33 Urine Ketones Trace mg/dL (Negative) H 06/20/25 15:33 Leukocyte Esterase Rfl 3+ [place]/UL (Negative) H 06/20/25 15:33 Urine RBC >100 /hpf (0-2) H 06/20/25 15:33 Urine WBC >100 /hpf (0-3) H 06/20/25 15:33 Urine Bacteria 4+ /hpf H 06/20/25 15:33 Urine Yeast (Budding) Present /hpf (None) H 06/20/25 15:33 Most Recent Suicide Severity Rating Suicide Severity Rating NO RISK INDICATED 06/20/25 12:12
--- NOTE | 2025-06-21 18:03 | PC.NURSE ---
handoff completed at this time.
--- NOTE | 2025-06-21 19:00 | ADMGEN ---
This patient, Tai Amado, was admitted to 3 [facility] Surg Room 323-01. Patient/family oriented to hospital policies and general routines including ID bracelet, bed and alarms, visiting hours, pain management, procedures, bathroom and other care routines, personal items, smoking policy, room service/diet, and visiting hours. Information on how to activate the Rapid Response Team has been discussed. Patient/Family are encouraged to report perceived risks to care and to ask questions if they do not understand what they are told or what they should do.
--- NOTE | 2025-06-21 22:39 | WNDPHOTO ---
PHOTO ONLY - See Nursing Notes and/ or assessments for documentation.
--- NOTE | 2025-06-21 22:44 | WNDPHOTO ---
PHOTO ONLY - See Nursing Notes and/ or assessments for documentation.
--- NOTE | 2025-06-21 22:44 | WNDPHOTO ---
PHOTO ONLY - See Nursing Notes and/ or assessments for documentation.
--- NOTE | 2025-06-21 22:46 | WNDPHOTO ---
PHOTO ONLY - See Nursing Notes and/ or assessments for documentation.
[2025-06-22] VITALS: BP 123/56; PULSE 105; RESP 18; TEMP 36.7; O2SAT 95
[2025-06-22] MEDS: CLINDAMYCIN 900 MG/D5W 50 ML 900 MG/50 ML PIGGYBACK 50 MG IVPB ×2 (01:02→08:29)
[2025-06-22] MEDS: oxyCODONE HCL (*CRX) 5 MG TAB IR PO (02:21)
[2025-06-22 04:00] VITALS: BP 128/64; PULSE 104; RESP 18; TEMP 36.2; O2SAT 94
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
[2025-06-22] MEDS: MEROPENEM 1 GM in SODIUM CHLORIDE 0.9% IV 100 ML 200 ML IVPB ×3 (06:36→21:07)
[2025-06-22 06:41] LABS: Estimated CRCL calculation 68 ml/min; Estimated Glomerular Filt Rate > 60
[2025-06-22 08:00] VITALS: BP 149/71; PULSE 103; RESP 20; TEMP 36.5; O2SAT 95
[2025-06-22] MEDS: LACTATED RINGERS 1,000 ML 100 ML IV CONT ×2 (08:29→21:04)
[2025-06-22] MEDS: VANCOMYCIN 1,500 MG/NS 500 ML 1,500 MG/500 ML BAG 250 MG IVPB (08:29)
[2025-06-22] MEDS: oxyCODONE HCL (*CRX) 5 MG TAB IR 10 MG PO ×2 (08:30→18:27)
[2025-06-22 09:17] LABS: Hematocrit 25.4 % (42.0-52.0); Hemoglobin 7.7 g/dL (14.0-18.0); Mean Corpuscular HGB Conc 30.3 g/dl (32-36); Mean Corpuscular Hemoglobin 26.7 pg (26-34); Mean Corpuscular Volume 88.2 fl (80-100); Platelet Count Result 367 k/mm3 (150-375); Red Blood Count 2.88 M/mm3 (4.6-6.20); White Blood Count 7.1 K/mm3 (4.5-10.0)
--- NOTE | 2025-06-22 09:18 | PM.EVENT ---
Event Note Event Note Event Note: Patient is a 75-year-old male who presented to the emergency department from his long-term care facility known past medical history of incomplete quadriplegic, chronic sacral wound, chronic constipation, HLD, hypertension with complaints of worsening pain to his sacral area. Patient was seen and assessed by previous provider same day evaluated follow-up assessment on patient, labs normal vitals as well as assessment and plan. patient initially was in the emergency department for greater than 24 hours pending transfer to [facility] currently no available at time patient was admitted to the medical unit to continue treatment with IV antibiotics pain management remains on wait list and pending transfer sacral wound showing osteomyelitis. general surgery at [place] had been consulted for evaluation and recommended transfer as well to tertiary hospital. patient has been initiated started on clindamycin, vancomycin and meropenem at this time I have discontinued the clindamycin will continue with vancomycin and meropenem pending wound cultures and blood cultures. Will continue with meropenem to cover for patient's history of ESBL in his urine. I will also start fluconazole for yeast budding in urine. Patient with complaints of sacral pain recommended continued off loading and pain management. Patient denied any SOB, CP, N/V. [facility] updated today waiting on bed.
[2025-06-22 09:28] LABS: Alanine Aminotransferase 9 U/L (6-50); Albumin Level 2.5 g/dL (3.5-5.1); Alkaline Phosphatase 89 U/L (38-126); Anion Gap 7 mmol/L (4-12); Aspartate Amino Transferase 19 U/L (17-59); Bilirubin,Total 0.4 mg/dL (0.2-1.3); Blood Urea Nitrogen 20 mg/dL (9-20); Calcium 7.9 mg/dL (8.4-10.2); Carbon Dioxide 22 mmol/L (22-30); Chloride 105 mmol/L (98-107); Glucose 85 mg/dL (65-110); Magnesium 1.8 mg/dL (1.6-2.3); Potassium 3.6 mmol/L (3.4-5.0); Sodium 134 mmol/L (137-145); Total Protein 5.5 g/dL (6.3-8.2)
--- NOTE | 2025-06-22 10:14 | PC.NURSE ---
Lydia from [facility] Transport Team, updated on current vital signs and status.
[2025-06-22] MEDS: ASCORBIC ACID 500 MG TABLET PO (10:36)
[2025-06-22] MEDS: FLUCONAZOLE 100 MG TABLET 200 MG PO (10:36)
[2025-06-22] MEDS: PANTOPRAZOLE 40 MG TABLET PO ×2 (10:36→21:07)
[2025-06-22] MEDS: ACIDOPHILUS/BULGARICUS CHEWABLE TABLET 1 TABLET PO (10:36)
[2025-06-22] MEDS: FERROUS SULFATE 325 MG TABLET PO (10:37)
[2025-06-22] MEDS: MULTIVITAMINS /C LUTEIN (CENTRUM SILVER) TABLET *BKC 1 TAB PO (10:37)
[2025-06-22] MEDS: BACLOFEN 10 MG TABLET PO ×3 (10:37→16:58)
[2025-06-22] MEDS: METOPROLOL TARTRATE 25 MG TABLET PO ×2 (10:37→21:06)
[2025-06-22 11:57] VITALS: BP 137/74; PULSE 83; RESP 18; TEMP 36.5; O2SAT 96
[2025-06-22] MEDS: ARTIFICIAL TEARS OPHTH SOLN 15 ML BOTTLE 1 DROP EACH EYE ×2 (12:03→21:10)
[2025-06-22] MEDS: FOLIC ACID 1 MG TABLET PO (12:11)
[2025-06-22 12:52] VITALS: BMI 18.8
[2025-06-22 16:00] VITALS: BP 141/65; PULSE 87; RESP 20; TEMP 36.3; O2SAT 97
[2025-06-22 20:00] VITALS: BP 144/74; PULSE 89; RESP 18; TEMP 37; O2SAT 96
[2025-06-22] MEDS: SENNA/DOCUSATE SODIUM TABLET 1 TAB PO (21:05)
[2025-06-22] MEDS: ATORVASTATIN 40 MG TABLET 80 MG PO (21:05)
[2025-06-22] MEDS: MELATONIN 3 MG TABLET PO (21:11)
[2025-06-23] VITALS (8 sets, daily range): BP systolic 124–150; BP diastolic 59–66; PULSE 64–85; RESP 14–18; TEMP 36.4–36.8; O2SAT 96
[2025-06-23] MEDS: VANCOMYCIN 1,500 MG/NS 500 ML 1,500 MG/500 ML BAG 250 MG IVPB (01:50)
[2025-06-23] MEDS: MEROPENEM 1 GM in SODIUM CHLORIDE 0.9% IV 100 ML 200 ML IVPB ×3 (05:00→22:11)
[2025-06-23 05:40] LABS: Hematocrit 24.2 % (42.0-52.0); Hemoglobin 7.3 g/dL (14.0-18.0); Mean Corpuscular HGB Conc 30.2 g/dl (32-36); Mean Corpuscular Hemoglobin 26.1 pg (26-34); Mean Corpuscular Volume 86.4 fl (80-100); Platelet Count Result 292 k/mm3 (150-375); Red Blood Count 2.80 M/mm3 (4.6-6.20); White Blood Count 6.2 K/mm3 (4.5-10.0)
[2025-06-23 06:15] LABS: Alanine Aminotransferase 8 U/L (6-50); Albumin Level 2.3 g/dL (3.5-5.1); Alkaline Phosphatase 85 U/L (38-126); Anion Gap 5 mmol/L (4-12); Aspartate Amino Transferase 35 U/L (17-59); Bilirubin,Total 0.3 mg/dL (0.2-1.3); Blood Urea Nitrogen 14 mg/dL (9-20); Calcium 7.6 mg/dL (8.4-10.2); Carbon Dioxide 25 mmol/L (22-30); Chloride 105 mmol/L (98-107); Estimated CRCL calculation 65 ml/min; Estimated Glomerular Filt Rate > 60; Glucose 75 mg/dL (65-110); Magnesium 1.8 mg/dL (1.6-2.3); Potassium 3.3 mmol/L (3.4-5.0); Sodium 135 mmol/L (137-145); Total Protein 5.1 g/dL (6.3-8.2)
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
[2025-06-23] MEDS: oxyCODONE HCL (*CRX) 5 MG TAB IR 10 MG PO ×2 (09:44→18:40)
[2025-06-23] MEDS: PANTOPRAZOLE 40 MG TABLET PO ×2 (09:46→19:56)
[2025-06-23] MEDS: ACIDOPHILUS/BULGARICUS CHEWABLE TABLET 1 TABLET PO (09:46)
[2025-06-23] MEDS: METOPROLOL TARTRATE 25 MG TABLET PO ×2 (09:46→19:55)
[2025-06-23] MEDS: FLUCONAZOLE 100 MG TABLET 200 MG PO (09:46)
[2025-06-23] MEDS: BACLOFEN 10 MG TABLET PO ×3 (09:47→17:27)
[2025-06-23] MEDS: FERROUS SULFATE 325 MG TABLET PO (09:47)
[2025-06-23] MEDS: ASPIRIN 81 MG CHEWABLE TABLET PO (09:47)
[2025-06-23] MEDS: ASCORBIC ACID 500 MG TABLET PO (09:47)
[2025-06-23] MEDS: MULTIVITAMINS /C LUTEIN (CENTRUM SILVER) TABLET *BKC 1 TAB PO (09:47)
[2025-06-23] MEDS: ARTIFICIAL TEARS OPHTH SOLN 15 ML BOTTLE 1 DROP EACH EYE ×2 (09:49→19:57)
[2025-06-23] MEDS: POTASSIUM CHLORIDE 20 MEQ ER TABLET 40 MEQ PO (09:51)
[2025-06-23] MEDS: FOLIC ACID 1 MG TABLET PO (13:40)
[2025-06-23] MEDS: VANCOMYCIN 1,250 MG/NS 250 ML 1,250 MG/250 ML BAG 166.67 MG IVPB (19:36)
[2025-06-23] MEDS: MELATONIN 3 MG TABLET PO (19:54)
[2025-06-23] MEDS: SENNA/DOCUSATE SODIUM TABLET 1 TAB PO (19:55)
[2025-06-23] MEDS: ATORVASTATIN 40 MG TABLET 80 MG PO (19:56)
[2025-06-24] VITALS: BP 126/60; PULSE 81; RESP 14; TEMP 36.4; O2SAT 96
[2025-06-24 04:00] VITALS: BP 133/55; PULSE 85; RESP 18; TEMP 36.3; O2SAT 96
[2025-06-24] MEDS: MEROPENEM 1 GM in SODIUM CHLORIDE 0.9% IV 100 ML 200 ML IVPB ×3 (05:16→21:22)
[2025-06-24 06:28] LABS: Hematocrit 27.7 % (42.0-52.0); Hemoglobin 8.2 g/dL (14.0-18.0); Mean Corpuscular HGB Conc 29.6 g/dl (32-36); Mean Corpuscular Hemoglobin 26.1 pg (26-34); Mean Corpuscular Volume 88.2 fl (80-100); Platelet Count Result 334 k/mm3 (150-375); Red Blood Count 3.14 M/mm3 (4.6-6.20); White Blood Count 6.8 K/mm3 (4.5-10.0)
[2025-06-24] MEDS: oxyCODONE HCL (*CRX) 5 MG TAB IR PO (06:44)
[2025-06-24 06:54] LABS: Alanine Aminotransferase 10 U/L (6-50); Albumin Level 2.5 g/dL (3.5-5.1); Alkaline Phosphatase 92 U/L (38-126); Anion Gap 3 mmol/L (4-12); Aspartate Amino Transferase 33 U/L (17-59); Bilirubin,Total 0.4 mg/dL (0.2-1.3); Blood Urea Nitrogen 12 mg/dL (9-20); Calcium 7.8 mg/dL (8.4-10.2); Carbon Dioxide 26 mmol/L (22-30); Chloride 104 mmol/L (98-107); Estimated CRCL calculation 75 ml/min; Estimated Glomerular Filt Rate > 60; Glucose 95 mg/dL (65-110); Magnesium 1.8 mg/dL (1.6-2.3); Potassium 3.8 mmol/L (3.4-5.0); Sodium 133 mmol/L (137-145); Total Protein 5.6 g/dL (6.3-8.2)
[2025-06-24] MEDS: ACIDOPHILUS/BULGARICUS CHEWABLE TABLET 1 TABLET PO (08:37)
[2025-06-24] MEDS: BACLOFEN 10 MG TABLET PO ×2 (08:37→13:22)
[2025-06-24] MEDS: ASCORBIC ACID 500 MG TABLET PO (08:37)
[2025-06-24] MEDS: FLUCONAZOLE 100 MG TABLET 200 MG PO (08:37)
[2025-06-24 08:38] VITALS: PULSE 86
[2025-06-24] MEDS: PANTOPRAZOLE 40 MG TABLET PO ×2 (08:38→21:21)
[2025-06-24] MEDS: METOPROLOL TARTRATE 25 MG TABLET PO ×2 (08:38→21:21)
[2025-06-24] MEDS: ASPIRIN 81 MG CHEWABLE TABLET PO (08:38)
[2025-06-24] MEDS: FERROUS SULFATE 325 MG TABLET PO (08:38)
[2025-06-24] MEDS: MULTIVITAMINS /C LUTEIN (CENTRUM SILVER) TABLET *BKC 1 TAB PO (08:38)
[2025-06-24] MEDS: SENNA/DOCUSATE SODIUM TABLET 1 TAB PO ×2 (08:38→21:21)
[2025-06-24] MEDS: ARTIFICIAL TEARS OPHTH SOLN 15 ML BOTTLE 1 DROP EACH EYE ×2 (08:39→21:22)
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
[2025-06-24 12:00] VITALS: BP 108/54; PULSE 77; RESP 18; TEMP 37.1; O2SAT 96
[2025-06-24] MEDS: oxyCODONE HCL (*CRX) 5 MG TAB IR 10 MG PO (13:21)
[2025-06-24] MEDS: FOLIC ACID 1 MG TABLET PO (13:24)
[2025-06-24] MEDS: VANCOMYCIN 1,250 MG/NS 250 ML 1,250 MG/250 ML BAG 166.67 MG IVPB (15:39)
[2025-06-24 20:00] VITALS: BP 114/59; PULSE 67; RESP 18; TEMP 36.7; O2SAT 98
[2025-06-24] MEDS: ATORVASTATIN 40 MG TABLET 80 MG PO (21:21)
[2025-06-24] MEDS: MELATONIN 3 MG TABLET PO (21:34)
[2025-06-25] VITALS (7 sets, daily range): BP systolic 109–138; BP diastolic 53–75; PULSE 63–88; RESP 14–18; TEMP 36.4–37.1; O2SAT 96–99
[2025-06-25] MEDS: oxyCODONE HCL (*CRX) 5 MG TAB IR 10 MG PO ×4 (00:30→21:11)
[2025-06-25] MEDS: MEROPENEM 1 GM in SODIUM CHLORIDE 0.9% IV 100 ML 200 ML IVPB (05:38)
[2025-06-25 06:51] LABS: Hematocrit 26.3 % (42.0-52.0); Hemoglobin 8.0 g/dL (14.0-18.0); Mean Corpuscular HGB Conc 30.4 g/dl (32-36); Mean Corpuscular Hemoglobin 26.6 pg (26-34); Mean Corpuscular Volume 87.4 fl (80-100); Platelet Count Result 297 k/mm3 (150-375); Red Blood Count 3.01 M/mm3 (4.6-6.20); White Blood Count 6.0 K/mm3 (4.5-10.0)
--- NOTE | 2025-06-25 07:09 | P.CDI_ITS ---
CDI Query Clarification Request BMI: 18.8 Nutritional Diagnostic Statement: Please refer to the comprehensive nutrition assessment for further information. If you agree with diagnosis of Severe protein calorie malnutrition related to inadequate intake in the setting of increased protein energy needs from chronic pressure injuries as evidenced by weight loss 17%/6 months; intakes <75% needs >1 month; severe fat loss (cheeks); severe muscle wasting (temporalis, clavicles, shoulders). Please specify severity if known: * Mild * Moderate * Severe * Other/Unknown <Allison Dietz RN - Last Filed: 06/25/25 07:10> Clarified Diagnosis Clarified Diagnosis: Severe protein calorie malnutrition related to inadequate intake in the setting of increased protein energy needs from chronic pressure injuries as evidenced by weight loss 17%/6 months; intakes <75% needs >1 month; severe fat loss (cheeks); severe muscle wasting (temporalis, clavicles, shoulders) <Jess Barnhart APRN - Last Filed: 06/25/25 11:15>
[2025-06-25 07:19] LABS: Alanine Aminotransferase 8 U/L (6-50); Albumin Level 2.3 g/dL (3.5-5.1); Alkaline Phosphatase 79 U/L (38-126); Anion Gap 3 mmol/L (4-12); Aspartate Amino Transferase 27 U/L (17-59); Bilirubin,Total 0.3 mg/dL (0.2-1.3); Blood Urea Nitrogen 10 mg/dL (9-20); Calcium 7.9 mg/dL (8.4-10.2); Carbon Dioxide 29 mmol/L (22-30); Chloride 106 mmol/L (98-107); Estimated CRCL calculation 77 ml/min; Estimated Glomerular Filt Rate > 60; Glucose 101 mg/dL (65-110); Magnesium 1.9 mg/dL (1.6-2.3); Potassium 3.5 mmol/L (3.4-5.0); Sodium 138 mmol/L (137-145); Total Protein 5.2 g/dL (6.3-8.2)
[2025-06-25] MEDS: FERROUS SULFATE 325 MG TABLET PO (09:45)
[2025-06-25] MEDS: BACLOFEN 10 MG TABLET PO ×3 (09:45→16:47)
[2025-06-25] MEDS: ASCORBIC ACID 500 MG TABLET PO (09:45)
[2025-06-25] MEDS: PANTOPRAZOLE 40 MG TABLET PO ×2 (09:45→20:53)
[2025-06-25] MEDS: ASPIRIN 81 MG CHEWABLE TABLET PO (09:46)
[2025-06-25] MEDS: ACIDOPHILUS/BULGARICUS CHEWABLE TABLET 1 TABLET PO (09:46)
[2025-06-25] MEDS: FLUCONAZOLE 100 MG TABLET 200 MG PO (09:47)
[2025-06-25] MEDS: METOPROLOL TARTRATE 25 MG TABLET PO ×2 (09:48→20:53)
[2025-06-25] MEDS: MULTIVITAMINS /C LUTEIN (CENTRUM SILVER) TABLET *BKC 1 TAB PO (09:48)
[2025-06-25] MEDS: VANCOMYCIN 1,250 MG/NS 250 ML 1,250 MG/250 ML BAG 166.67 MG IVPB (09:57)
[2025-06-25] MEDS: LIDOCAINE 5% PATCH 1 PATCH TOPICAL (09:58)
[2025-06-25] MEDS: IBUPROFEN 600 MG TABLET PO (10:11)
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
[2025-06-25] MEDS: FOLIC ACID 1 MG TABLET PO (12:20)
[2025-06-25] MEDS: oxyCODONE HCL (*CRX) 5 MG TAB IR PO ×2 (12:20→16:49)
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
[2025-06-25] MEDS: ATORVASTATIN 40 MG TABLET 80 MG PO (20:51)
[2025-06-25] MEDS: SENNA/DOCUSATE SODIUM TABLET 1 TAB PO (20:53)
[2025-06-25] MEDS: MELATONIN 3 MG TABLET PO (20:55)
[2025-06-25] MEDS: ARTIFICIAL TEARS OPHTH SOLN 15 ML BOTTLE 1 DROP EACH EYE (20:57)
[2025-06-26] VITALS (9 sets, daily range): BP systolic 108–144; BP diastolic 60–77; PULSE 77–95; RESP 10–18; TEMP 36.1–36.8; O2SAT 84–99
[2025-06-26] MEDS: VANCOMYCIN 1,250 MG/NS 250 ML 1,250 MG/250 ML BAG 166.67 MG IVPB (04:46)
[2025-06-26 05:40] LABS: Hematocrit 27.7 % (42.0-52.0); Hemoglobin 8.2 g/dL (14.0-18.0); Mean Corpuscular HGB Conc 29.6 g/dl (32-36); Mean Corpuscular Hemoglobin 26.2 pg (26-34); Mean Corpuscular Volume 88.5 fl (80-100); Platelet Count Result 311 k/mm3 (150-375); Red Blood Count 3.13 M/mm3 (4.6-6.20); White Blood Count 7.7 K/mm3 (4.5-10.0)
[2025-06-26] MEDS: oxyCODONE HCL (*CRX) 5 MG TAB IR 10 MG PO ×3 (05:54→21:29)
[2025-06-26 06:00] LABS: Alanine Aminotransferase 11 U/L (6-50); Albumin Level 2.5 g/dL (3.5-5.1); Alkaline Phosphatase 90 U/L (38-126); Anion Gap 4 mmol/L (4-12); Aspartate Amino Transferase 28 U/L (17-59); Bilirubin,Total 0.2 mg/dL (0.2-1.3); Blood Urea Nitrogen 15 mg/dL (9-20); Calcium 8.0 mg/dL (8.4-10.2); Carbon Dioxide 29 mmol/L (22-30); Chloride 105 mmol/L (98-107); Estimated CRCL calculation 77 ml/min; Estimated Glomerular Filt Rate > 60; Glucose 103 mg/dL (65-110); Magnesium 2.0 mg/dL (1.6-2.3); Potassium 4.1 mmol/L (3.4-5.0); Sodium 138 mmol/L (137-145); Total Protein 5.7 g/dL (6.3-8.2)
[2025-06-26] MEDS: IBUPROFEN 600 MG TABLET PO (06:32)
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
[2025-06-26] MEDS: PANTOPRAZOLE 40 MG TABLET PO ×2 (09:44→21:16)
[2025-06-26] MEDS: BACLOFEN 10 MG TABLET PO ×3 (09:44→18:11)
[2025-06-26] MEDS: FERROUS SULFATE 325 MG TABLET PO (09:44)
[2025-06-26] MEDS: ASPIRIN 81 MG CHEWABLE TABLET PO (09:44)
[2025-06-26] MEDS: METOPROLOL TARTRATE 25 MG TABLET PO ×2 (09:44→21:17)
[2025-06-26] MEDS: ASCORBIC ACID 500 MG TABLET PO (09:44)
[2025-06-26] MEDS: SENNA/DOCUSATE SODIUM TABLET 1 TAB PO (09:45)
[2025-06-26] MEDS: ACIDOPHILUS/BULGARICUS CHEWABLE TABLET 1 TABLET PO (09:45)
[2025-06-26] MEDS: FLUCONAZOLE 100 MG TABLET 200 MG PO (09:45)
[2025-06-26] MEDS: ARTIFICIAL TEARS OPHTH SOLN 15 ML BOTTLE 1 DROP EACH EYE (09:47)
[2025-06-26] MEDS: MULTIVITAMINS /C LUTEIN (CENTRUM SILVER) TABLET *BKC 1 TAB PO (09:50)
[2025-06-26] MEDS: oxyCODONE HCL (*CRX) 5 MG TAB IR PO ×2 (09:51→18:11)
[2025-06-26] MEDS: FOLIC ACID 1 MG TABLET PO (13:16)
[2025-06-26] MEDS: ATORVASTATIN 40 MG TABLET 80 MG PO (21:16)
[2025-06-26] MEDS: MELATONIN 3 MG TABLET PO (21:21)
[2025-06-26] MEDS: VANCOMYCIN 1,250 MG/NS 250 ML 1,250 MG/250 ML BAG 167 MG IVPB (21:35)
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
[2025-06-26] MEDS: NALOXONE HCL 0.4 MG/ML VIAL 0.1 MG IV PUSH (23:50)
[2025-06-27] VITALS (8 sets, daily range): BP systolic 125–146; BP diastolic 62–68; PULSE 77–82; RESP 16; TEMP 36.6–36.8; O2SAT 92–98
--- NOTE | 2025-06-27 00:08 | PC.NURSE ---
Patient was drifting to sleep mid conversation. Observed that RR was below 10 within a minute while asleep. Patient was previously given 10mg of oxycodone. 0.1 mg of Narcan given as reversal. Patient was more alert post naloxone. Vital signs taken and recorded.
[2025-06-27 06:06] LABS: Hematocrit 27.8 % (42.0-52.0); Hemoglobin 8.4 g/dL (14.0-18.0); Mean Corpuscular HGB Conc 30.2 g/dl (32-36); Mean Corpuscular Hemoglobin 26.6 pg (26-34); Mean Corpuscular Volume 88.0 fl (80-100); Platelet Count Result 287 k/mm3 (150-375); Red Blood Count 3.16 M/mm3 (4.6-6.20); White Blood Count 7.8 K/mm3 (4.5-10.0)
[2025-06-27] MEDS: oxyCODONE HCL (*CRX) 5 MG TAB IR PO ×3 (06:28→15:57)
[2025-06-27 06:34] LABS: Alanine Aminotransferase 11 U/L (6-50); Albumin Level 2.6 g/dL (3.5-5.1); Alkaline Phosphatase 92 U/L (38-126); Anion Gap 3 mmol/L (4-12); Aspartate Amino Transferase 26 U/L (17-59); Bilirubin,Total 0.2 mg/dL (0.2-1.3); Blood Urea Nitrogen 16 mg/dL (9-20); Calcium 8.2 mg/dL (8.4-10.2); Carbon Dioxide 30 mmol/L (22-30); Chloride 104 mmol/L (98-107); Estimated CRCL calculation 80 ml/min; Estimated Glomerular Filt Rate > 60; Glucose 101 mg/dL (65-110); Magnesium 2.0 mg/dL (1.6-2.3); Potassium 4.2 mmol/L (3.4-5.0); Sodium 137 mmol/L (137-145); Total Protein 5.7 g/dL (6.3-8.2)
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
[2025-06-27] MEDS: PANTOPRAZOLE 40 MG TABLET PO ×2 (08:51→20:00)
[2025-06-27] MEDS: ACIDOPHILUS/BULGARICUS CHEWABLE TABLET 1 TABLET PO (08:52)
[2025-06-27] MEDS: ASCORBIC ACID 500 MG TABLET PO (08:53)
[2025-06-27] MEDS: ASPIRIN 81 MG CHEWABLE TABLET PO (08:53)
[2025-06-27] MEDS: ARTIFICIAL TEARS OPHTH SOLN 15 ML BOTTLE 1 DROP EACH EYE (08:55)
[2025-06-27] MEDS: BACLOFEN 10 MG TABLET PO ×3 (08:56→17:15)
[2025-06-27] MEDS: METOPROLOL TARTRATE 25 MG TABLET PO ×2 (08:57→20:00)
[2025-06-27] MEDS: MULTIVITAMINS /C LUTEIN (CENTRUM SILVER) TABLET *BKC 1 TAB PO (08:57)
--- NOTE | 2025-06-27 11:00 | PCNFU ---
Nutrition Follow-Up Complete: Severe protein calorie malnutrition related to inadequate intake in the setting of increased protein energy needs from chronic pressure injuries as evidenced by weight loss 17%/6 months; intakes <75% needs >1 month; severe fat loss (cheeks); severe muscle wasting (temporalis, clavicles, shoulders) Goal:Intakes >50% pt meeting goal Pt current nutrition is Regular, Ensure TID, POLLO BID, nutrition ice cream cups BID. Nutrition recommendation: continue with current plan of care Last recorded weight is 68.2 kg. Bowel Motility: +BM 06/26 Labs Reviewed: Hgb:8.2, HCT:27.8, Alb:2.6, Cr:0.65 Meds Noted: protonix, senekot Skin: Multilpe stage IV pressure injuries Additional Notes: Pt continues on a regular diet, multiple supplements in place and pt consumes. Charted intake varied from 25-100%. Agree with orders, encourage po intake. Monitoring intakes, weights, labs, wounds, supplement tolerance, plan of care Follow up in 7 days
[2025-06-27] MEDS: FOLIC ACID 1 MG TABLET PO (12:09)
[2025-06-27] MEDS: ACETAMINOPHEN 325 MG TABLET 650 MG PO ×2 (13:01→17:15)
[2025-06-27] MEDS: VANCOMYCIN 1,250 MG/NS 250 ML 1,250 MG/250 ML BAG 167 MG IVPB (15:57)
[2025-06-27] MEDS: ATORVASTATIN 40 MG TABLET 80 MG PO (20:00)
[2025-06-27] MEDS: SENNA/DOCUSATE SODIUM TABLET 1 TAB PO (20:01)
[2025-06-28] VITALS: BP 152/72; PULSE 82; RESP 16; TEMP 36.2; O2SAT 82
[2025-06-28 04:00] VITALS: BP 134/71; PULSE 81; RESP 20; TEMP 36.2; O2SAT 92
[2025-06-28] MEDS: oxyCODONE HCL (*CRX) 5 MG TAB IR PO (05:28)
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
[2025-06-28 08:00] VITALS: BP 125/69; PULSE 80; RESP 18; TEMP 36.1; O2SAT 95
[2025-06-28 08:32] VITALS: PULSE 70
[2025-06-28] MEDS: ACIDOPHILUS/BULGARICUS CHEWABLE TABLET 1 TABLET PO (08:32)
[2025-06-28] MEDS: FERROUS SULFATE 325 MG TABLET PO (08:32)
[2025-06-28] MEDS: METOPROLOL TARTRATE 25 MG TABLET PO (08:32)
[2025-06-28] MEDS: BACLOFEN 10 MG TABLET PO (08:32)
[2025-06-28] MEDS: MULTIVITAMINS /C LUTEIN (CENTRUM SILVER) TABLET *BKC 1 TAB PO (08:32)
[2025-06-28] MEDS: ASCORBIC ACID 500 MG TABLET PO (08:32)
[2025-06-28] MEDS: PANTOPRAZOLE 40 MG TABLET PO (08:33)
[2025-06-28] MEDS: ASPIRIN 81 MG CHEWABLE TABLET PO (08:33)
[2025-06-28] MEDS: BISACODYL 10 MG SUPPOSITORY RECTAL (08:38)
[2025-06-28] MEDS: SENNA/DOCUSATE SODIUM TABLET 1 TAB PO (08:38)
[2025-06-28] MEDS: ARTIFICIAL TEARS OPHTH SOLN 15 ML BOTTLE 1 DROP EACH EYE (08:38)
--- NOTE | 2025-06-28 14:22 | PM.TDS ---
Transfer Discharge Sum: Prov Provider Date of admission: 06/21/25 14:36 Primary care physician: Shant Loaiza, Admitting clinician: Rayray Damian MD Consults: 06/22/25 Wound/ET Consult Routine Reason for Consult:: Sacral wound 06/24/25 Consult to Physician Routine Comment: Spoke to office 06/24 [id number] (-) Consulting Provider: Pritesh oMrris bingo caller/MD group to consult: ID Reason for consultation: complicated UTI/ Pseudomonas CRPA Has provider been notified: Yes 06/24/25 11:52 Consult Infectious Disease Pharmacist Routine Comment: Initiate coordination of ID Physician consult. [facility]: Admitting Diagnosis Discharge Date 06/28/25 Admitting Diagnosis - osteomyelitis DS: Discharge Diagnosis Discharge Diagnosis (1) Osteomyelitis: Qualifiers: Osteomyelitis location: multiple sites Osteomyelitis type: unspecified type Qualified Code(s): M86.9 - Osteomyelitis, unspecified Code(s): M86.9 - Osteomyelitis, unspecified Status: Acute (2) UTI (urinary tract infection) due to urinary indwelling catheter: Qualifiers: Encounter type: initial encounter Indwelling urinary catheter type: cystostomy catheter Qualified Code(s): T83.510A - Infection and inflammatory reaction due to cystostomy catheter, initial encounter; N39.0 - Urinary tract infection, site not specified Code(s): T83.511A - Infection and inflammatory reaction due to indwelling urethral catheter, initial encounter; N39.0 - Urinary tract infection, site not specified Status: Acute (3) Hypertension: Qualifiers: Hypertension type: primary hypertension Qualified Code(s): I10 - Essential (primary) hypertension Code(s): I10 - Essential (primary) hypertension Status: Acute (4) Quadriplegia, 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, incomplete: Code(s): G82.54 - Quadriplegia, C5-C7 incomplete Status: Chronic (5) HLD (hyperlipidemia): Code(s): E78.5 - Hyperlipidemia, unspecified Status: Acute (6) Constipation: Code(s): K59.00 - Constipation, unspecified Status: Acute (7) Anemia: Qualifiers: Anemia type: iron deficiency Iron deficiency anemia type: unspecified iron deficiency Qualified Code(s): D50.9 - Iron deficiency anemia, unspecified Code(s): D64.9 - Anemia, unspecified Status: Chronic (8) GERD (gastroesophageal reflux disease): Code(s): K21.9 - Gastro-esophageal reflux disease without esophagitis Status: Acute (9) Back pain: Code(s): M54.9 - Dorsalgia, unspecified Status: Acute Transfer Discharge Sum: Med Medications Active and Home Medications: Home Medications acetaminophen 1,000 mg PO Q6H PRN Pain 12/11/19 [History Confirmed 06/22/25] ferrous sulfate 325 mg (65 mg iron) tablet 325 mg PO DAILY 12/11/19 [History Confirmed 06/22/25] ascorbic acid (vitamin C) 500 mg chewable tablet 500 mg PO DAILY 04/01/24 [History Confirmed 06/22/25] cranberry fruit 450 mg tablet (cranberry) 450 mg PO TIDWM 04/01/24 [History Confirmed 06/26/25] ibuprofen 400 mg tablet 600 mg PO Q6H PRN Pain 04/01/24 [History Confirmed 06/22/25] multivit with minerals-iron 18 mg-folic ac 400 mcg-vit K 25 mcg tablet (Adults Multivitamin) 1 tablet PO DAILY 07/05/24 [History Confirmed 06/22/25] amlodipine 10 mg tablet 10 mg PO DAILY 05/16/25 [History Confirmed 06/22/25] aspirin 81 mg capsule 81 mg PO DAILY 05/16/25 [History Confirmed 06/22/25] ceftriaxone 2 gram intravenous solution 2 g IV DAILY 05/16/25 [History Confirmed 05/16/25] daptomycin 350 mg intravenous solution 750 mg IV Q24H 05/16/25 [History Confirmed 05/16/25] dextran 70-hypromellose eye drops (Artificial Tears (dextran 70-hypromellose) eye drops) 1 drp EACH EYE Q12H 05/16/25 [History Confirmed 06/22/25] meloxicam 15 mg tablet 15 mg PO HS 05/16/25 [History Confirmed 06/22/25] oxycodone 5 mg tablet 10 mg PO Q6H PRN pain 05/16/25 [History Confirmed 06/22/25] Lactobacillus acidophilus 500 million cell capsule 500 mmu cells PO DAILY 06/22/25 [History Confirmed 06/26/25] atorvastatin 80 mg tablet 80 mg PO HS 06/22/25 [History Confirmed 06/22/25] baclofen 5 mg tablet 10 mg PO TID 06/22/25 [History Confirmed 06/22/25] lidocaine 5 % topical patch 1 patch topical DAILY PRN Joint pain 06/22/25 [History Confirmed 06/22/25] Transfer Discharge Sum: Hosp Hospital Course Hospital course: The patient is a 75-year-old male with 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 Initial emergency department evaluation revealed multiple chronic, advanced sacral and bilateral ischial decubitus ulcers with concern for deep infection. CT abdomen/pelvis demonstrated deep decubitus ulcers with underlying osteomyelitis involving the sacrum and bilateral ischial tuberosities, along with findings concerning for cystitis and stercoral colitis. Laboratory studies showed chronic anemia, mild leukocytosis initially, hypoalbuminemia, and electrolyte abnormalities without lactic acidosis or hemodynamic instability. The patient was started on broad-spectrum intravenous antibiotics, including meropenem, vancomycin, and clindamycin, later adjusted per Infectious Disease consultation. Cultures from the sacral wound and urine grew multidrug-resistant Pseudomonas aeruginosa, including CRE strains, prompting escalation of antimicrobial therapy to ceftolozane/tazobactam (Zerbaxa) with continuation of vancomycin; he also received a dose of tobramycin. General Surgery and Infectious Disease services were consulted, and given the extent of the infected sacral wound, concern for osteomyelitis, and potential need for complex debridement and flap reconstruction, transfer to a tertiary care center was recommended. Throughout hospitalization, the patient remained afebrile and hemodynamically stable without evidence of sepsis, with pain managed using opioid and non-opioid analgesics and supportive care including wound care, bowel regimen, and VTE prophylaxis. After acceptance by a tertiary care facility, the patient was transferred for higher level of care, including advanced surgical management and prolonged intravenous antibiotic therapy. Patient Condition: Stable Time Spent with Patient Time attestation: Total time spent providing and/or coordinating transfer services: Total time spent: Greater than 30 minutes Exam Narrative: Patient discharged prior to my evaluation on 06/28. DS: Data Data Completed and Pending Completed studies during hospitalization: ITS Impressions Abdomen/Pelvis CT 06/20/25 16:11 IMPRESSION: 1. Suprapubic Martínez catheter within the is partially decompressed bladder which demonstrates wall thickening and mild surrounding inflammatory stranding which could be seen with cystitis. Correlate with urinalysis. 2. Prominent wall thickening at the stool-filled rectum and distal sigmoid colon with prominent surrounding from trace stranding most consistent with stercoral colitis pressure related to chronic constipation. 3. Deep decubitus ulcers with underlying osteomyelitis involving the caudal aspect of the sacrum and the left and right ischial tuberosities. 4. Cholelithiasis. 5. Chronic calcified pleural plaques along the bilateral lung bases with prominent round atelectasis in the right lower lobe.
== END 2025-06-28 08:40 | disposition short-term general hospital (02) | DRG 539 ==
LOC: ANHED 06-21 13:19 → ANH3MEDSUR 06-21 15:37
PROVIDERS: Nurse Practitioner Family; Student in an Organized Health Care Education/Training Program; Admitting Provider Internal Medicine; Emergency Provider Student in an Organized Health Care Education/Training Program; PCP Internal Medicine; Visit Provider Internal Medicine
DX: M86.9 Osteomyelitis, unspecified (principal); E43 Unspecified severe protein-calorie malnutrition; G82.54 Quadriplegia, C5-C7 incomplete; N39.0 Urinary tract infection, site not specified; T83.511A Infection and inflammatory reaction due to indwelling urethral catheter, initial encounter; Z16.13 Resistance to carbapenem; Z68.1 Body mass index [BMI] 19.9 or less, adult; L89.159 Pressure ulcer of sacral region, unspecified stage; B96.5 Pseudomonas (aeruginosa) (mallei) (pseudomallei) as the cause of diseases classified elsewhere; G89.4 Chronic pain syndrome; I69.398 Other sequelae of cerebral infarction; H53.8 Other visual disturbances; D50.9 Iron deficiency anemia, unspecified; E78.5 Hyperlipidemia, unspecified; F32.9 Major depressive disorder, single episode, unspecified; G47.30 Sleep apnea, unspecified; I10 Essential (primary) hypertension; K59.09 Other constipation; K21.9 Gastro-esophageal reflux disease without esophagitis; Z85.828 Personal history of other malignant neoplasm of skin; Z86.718 Personal history of other venous thrombosis and embolism; Z87.891 Personal history of nicotine dependence; Z96.82 Presence of neurostimulator; Z74.01 Bed confinement status
CPT/HCPCS: 36415; 74177; 80053; 80200; 80202; 81001; 82565; 83605; 83735; 85025; 85027; 87040; 87070; 87075; 87086; 87186; 96361; 96365; 96366; 96367; 96375; 96376; 99285; A9270; J1171; J2185; J2270; J2312; J3260; J3373; J7030; J7120; Q9967